=== PATIENT | male | born 1950 | race Caucasian/White ===

== ENCOUNTER 2016-07-13 07:32 | Emergency (ER) | payer OTHER ==
[~2016-07-13] VITALS: Ht 175.3 cm; Wt 156.4 kg
[~2016-07-13 07:32] MED LIST: ALBU0.08 INH; ALBUAER PO; ALLO300T2 PO; ASPI81TA28 PO; ATOR10TA88 PO; CHOL100010 PO; CLC6 PO; CYM20 PO; DIGO0.1267 PO; DOFE250C PO; FURO80TA63 PO; GLGKIT; INSUINJ2; LEVO200T PO; LEVO50TA PO; LISI5TAB3 PO; LPR25 PO; METO10TA6 PO; OXGN; PRLSR20 PO; SPIR25TA PO; SYMIN160 INH; WARF4TAB PO
[2016-07-13 07:34] VITALS: TEMP 36.9; Ht 175.3 cm; Wt 156.4 kg
[2016-07-13] MEDS ORDERED: RANITIDINE HCL 150 MG TAB PO STA (08:03)
[2016-07-13] MEDS ORDERED: DiphenhydrAMINE HCL 50 MG/ML VIAL IM STA (08:03)
[2016-07-13] MEDS ORDERED: METHYLPREDNISOLONE 125 MG VIAL IM STA (08:03)
[2016-07-13] MEDS ORDERED: ATOR-22 PO ×2 (08:21→08:26)
[2016-07-13] MEDS ORDERED: METO50TA16 PO (08:26)
[2016-07-13] MEDS ORDERED: FRS/80 PO (08:26)
[2016-07-13] MEDS ORDERED: SPIR25TA PO (08:26)
[2016-07-13] MEDS ORDERED: ALLO300T2 PO (08:26)
[2016-07-13] MEDS ORDERED: PRLSR20 PO (08:26)
[2016-07-13] MEDS ORDERED: ASPI81TA28 PO (08:26)
[2016-07-13] MEDS ORDERED: DULO-24 PO (08:26)
[2016-07-13] MEDS ORDERED: LEVO200T PO (08:26)
[2016-07-13] MEDS ORDERED: COLC0.6T54 PO (08:26)
[2016-07-13] MEDS ORDERED: DOFE250C PO (08:26)
[2016-07-13] MEDS ORDERED: CHOL20007 PO (08:26)
[2016-07-13] MEDS ORDERED: LEVO50TA PO (08:26)
[2016-07-13] MEDS ORDERED: LNX125 PO (08:26)
[2016-07-13] MEDS ORDERED: LISI-729 PO (08:26)
[2016-07-13] MEDS ORDERED: WARF4TAB8 PO (08:29)
[2016-07-13] MEDS ORDERED: CMD4 PO (08:29)
[2016-07-13] MEDS ORDERED: METO10TA6 PO (08:32)
[2016-07-13] MEDS ORDERED: PRED50TA PO (09:10)
--- NOTE | 2016-07-13 09:10 | EMERGENCY ROOM VISIT NOTE ---
ED Visit Note First contact with patient: 07:39 CHIEF COMPLAINT: Itchy skin rash 4-5 days HISTORY OF PRESENT ILLNESS: Patient is a 66-year-old white male with a complex and extensive past medical history who presents to the emergency department accompanied by a neighbor for evaluation of an itchy skin rash. He reports that it has been present for about 2 weeks, but the neighbor feels that has been present for only a few days. She was with him about 4 days ago, when he was complaining of itching on his hands. He has noted a progressively worsening red, raised, itchy rash, on his hands, arms, torso and buttocks. It largely spares his legs. He has not really tried anything for his symptoms, having applied sporadically a topical Benadryl cream or cortisone 10. He also uses ketoconazole cream for his underarm areas. He did notice a few areas around his mouth, and feels like his lips may be a little bit swollen, but denies any difficulty swallowing or breathing. He denies any shortness of breath. He states that he might be a little bit nauseous. Denies new exposure to any potential allergens in the last several weeks such as new medications, clothes, detergents, cosmetic products, or foods. He has not been ill with any cold or upper respiratory symptoms. There have been no changes in his medications. Incidentally, his friend notes that he has had been to several doctors appointments over the last couple of weeks, and no one else has noticed the rash, which to her suggests it has only been present for a couple of days. Patient reports that he was seen at our facility one month ago for evaluation of abdominal pain and was found to have an acute cholecystitis. He was transferred to to [facility] due to his complex medical history, and underwent cholecystectomy which was apparently and complicated. He has had follow-up with his surgeon since. REVIEW OF SYSTEMS: Review of systems as per HPI. All other systems reviewed were negative. 10 systems reviewed. PMH: Electronic medical records are reviewed and summarized as above/below. See Problem List. SOCIAL HISTORY: Patient lives at home. PHYSICAL EXAM: Vital Signs: Reviewed Nurse's notes. CONSTITUTIONAL: Patient is a morbidly obese 66-year-old white male who is awake and alert and seizure on the edge of the gurney in no acute distress. His vital signs are stable. HEENT: Normocephalic, atraumatic. Pupils equal, round, reactive to light and accommodation. EOMs intact without nystagmus. Sclera are anicteric. Tympanic membranes intact, with normal landmarks. External canals are clear. Oral and nasopharynx are clear. Mucous membranes are moist. He has slight fullness of the lips, and a few urticarial lesions around his mouth, but no evidence for airway compromise. No blisters or petechiae noted. LUNGS: Clear to auscultation and breath sounds equal, no wheezes, rales, or rhonchi. HEART: Regular rhythm and normal rate without murmurs, ectopy, gallops, or rubs. INTEGUMENTARY: The patient has a diffuse, red, raised calming maculopapular rash , involving his back, buttocks and abdomen. He has a few other lesions noted in the perioral area and on his arms. He does also has some lesions on the palms of his hands. There are no vesicles, blisters, or hemorrhagic lesions noted. EMERGENCY DEPARTMENT COURSE: Patient was treated with IM Solu-Medrol and Benadryl and given Zantac 150 mg orally. He was observed, and on reassessment, the lesions did appear to be fading slightly. He still complained of itching. He was encouraged to continue Benadryl and was placed on a short prednisone burst. His rash does appear to be urticarial in nature. The etiology is unclear at this point. His rash is not consistent with TEN or SJS. I do not suspect a vasculitis or pityriasis. Patient was encouraged to recheck with his primary care provider next week, or to arrange follow-up with dermatology for further care and management. He was reminded that the prednisone may cause his blood sugars become elevated transiently and he should correct that with his splint on as per his sliding scale. He is discharged home with his neighbor driving. Problem List Medical Problems: (1) Atrial fibrillation Status: Chronic (2) Benign hypertension Status: Chronic (3) Chronic obstructive lung disease Status: Chronic (4) DIAB EDYTA WO COMPL, TYPE II OR UNSPEC TYPE, NOT UNCNTRLD Status: Chronic (5) Diabetic neuropathy Status: Chronic (6) Dyslipidemia Status: Chronic (7) Gastroesophageal reflux disease Status: Chronic (8) History of calculus of kidney Status: Resolved (9) Hypothyroidism Status: Chronic (10) Morbid obesity Permanent Comment: BMI > 40 Status: Chronic (11) Obstructive sleep apnea syndrome Permanent Comment: CPAP prescribed, but usually does not utilize it Status: Chronic (12) s/p arthroscopic knee surgery Status: Resolved (13) s/p lithotripsy Status: Resolved (14) s/p repair umbilical hernia Status: Resolved Current/Historical Medications Scheduled Allopurinol (Zyloprim), 300 MG PO DAILY Aspirin (Aspirin Ec), 81 MG PO DAILY Atorvastatin (Lipitor), 0.5 TAB PO DAILY Cholecalciferol (Vitamin D3), 1 TAB PO DAILY Colchicine (Colchicine), 0.6 MG PO DAILY Digoxin (Digoxin), 0.125 MG PO DAILY Dofetilide (Tikosyn), 250 MCG PO BID Duloxetine HCl (Cymbalta), 1 CAP PO DAILY Furosemide (Lasix), 80 MG PO BID Levothyroxine Sodium (Synthroid), 50 MCG PO QAM Levothyroxine Sodium (Synthroid), 200 MCG PO QAM Lisinopril (Prinivil), 5 TAB PO QAM Metolazone (Zaroxolyn), 10 MG PO WK Metoprolol Tartrate (Lopressor) (Lopressor), 0.5 TAB PO BID Omeprazole (Prilosec), 20 MG PO QAM Prednisone (Prednisone), 50 MG PO DAILY Spironolactone (Aldactone), 0.5 TAB PO DAILY Warfarin Sod (Coumadin), 4 MG PO 4XWK Warfarin Sod (Jantoven), 6 MG PO 3XWK Allergies Coded Allergies: No Known Allergies (Verified , 06/03/16) Vital Signs Date Time Temp Pulse Resp B/P Pulse Ox O2 Delivery O2 Flow Rate FiO2 07/13/16 09:31 92 18 133/75 97 07/13/16 07:34 36.9 105 19 128/69 96 Room Air Medications Administered Medications (Trade) Dose Ordered Sig/Shane Route Start Time Stop Time Status Last Admin Dose Admin Diphenhydramine HCl (Benadryl Inj) 50 mg NOW STAT IM 07/13/16 08:03 07/13/16 08:05 DC 07/13/16 08:15 50 MG Methylprednisolone Sodium Succinate (Solu-Medrol IV) 125 mg NOW STAT IM 07/13/16 08:03 07/13/16 08:05 DC 07/13/16 08:15 125 MG Ranitidine HCl (zANTac TAB) 150 mg ONE STAT PO 07/13/16 08:03 07/13/16 08:05 DC 07/13/16 08:15 150 MG Departure Information Impression Primary Impression: Urticarial dermatitis Prescriptions Prednisone (Prednisone) 50 Mg Tab 50 MG PO DAILY for 4 Days, #4 TAB Prov: Luz Scott PA 07/13/16 Referrals Scotty Jara D.O. (PCP) Patient Instructions A Signature Page, My [facility] Additional Instructions DO NOT drive, drink alcohol, operate machinery, or perform dangerous activities today. You were given medications in the ER that can affect your ability to safely function or operate a vehicle. Prednisone 50mg: Once daily until the prescription is finished. It is best to take this earlier in the day as some patients note occasional difficulty falling asleep when taken in the late evening. Watch your blood sugars closely while on the Prednisone and correct accordingly. Diphenhydramine(Benadryl) 25mg: use 25 to 50 mg as needed every six hours for swelling, itching, or hives. This medication is sedating and will cause drowsiness. Avoid alcohol, operating machinery or dangerous equipment, working on ladders or roofs, DRIVING , or situations where being under the influence may be dangerous. Zantac 75: Take two pills twice a day along with Benadryl as needed for swelling , itching, or hives. Most people know this for its affect on the stomach, but it also acts similar to, but less potent than Benadryl for allergic reactions. Both the Benadryl and the Zantac are available [id number]. Read all the package inserts or medication information paperwork provided. If you have any questions or concerns call your primary provider, pharmacist or the ER for assistance. Continue current medications. Return to the emergency department for worsening of your rash, swelling of your face, lips, tongue, or throat, difficulty breathing, vomiting, or as needed. Follow-up with your primary care physician in 2-3 days for a recheck of your current condition.
--- NOTE | 2016-07-13 09:11 | EMERGENCY ROOM VISIT NOTE ---
ED Visit Note First contact with patient: 07:39 I have personally seen and evaluated the patient with the physician budget assistant. I agree with the diagnostic/management decisions and have personally been involved in these decisions and agree with the diagnosis.
[2016-07-13 09:31] VITALS: BP 133/75; PULSE 92; O2SAT 97
[2016-09-26] MEDS ORDERED: LPR100 PO (13:21)
[2016-11-14] MEDS ORDERED: METO1TAB69 PO (07:54)
[2016-11-18] MEDS ORDERED: AMOX500C3 PO (07:54)
[2016-12-09] MEDS ORDERED: DOXY100C76 PO (07:29)
[2017-03-22] MEDS ORDERED: PRD20 PO (11:56)
[2017-03-22] MEDS ORDERED: LVQ750 PO (11:56)
== END 2016-07-13 09:32 | disposition home or self-care (01) ==
LOC: C.EDB 07:33
DX: L30.9 Dermatitis, unspecified (principal); L50.9 Urticaria, unspecified; I48.2 Chronic atrial fibrillation; I10 Essential (primary) hypertension; J44.9 Chronic obstructive pulmonary disease, unspecified; E13.40 Other specified diabetes mellitus with diabetic neuropathy, unspecified; E78.5 Hyperlipidemia, unspecified; K21.9 Gastro-esophageal reflux disease without esophagitis; E03.9 Hypothyroidism, unspecified; E66.01 Morbid (severe) obesity due to excess calories; G47.33 Obstructive sleep apnea (adult) (pediatric); Z79.82 Long term (current) use of aspirin; Z79.01 Long term (current) use of anticoagulants; Z79.899 Other long term (current) drug therapy

== ENCOUNTER 2016-07-19 22:19 | Emergency (ER) | payer OTHER ==
[~2016-07-19] VITALS: Ht 175.3 cm; Wt 158.0 kg
[~2016-07-19 22:19] MED LIST changes: -ALBU0.08 INH; -ALBUAER PO; +ATOR-22 PO; -ATOR10TA88 PO; -CHOL100010 PO; +CHOL20007 PO; -CLC6 PO; +CMD4 PO; +COLC0.6T54 PO; -CYM20 PO; -DIGO0.1267 PO; +DULO-24 PO; +FRS/80 PO; -FURO80TA63 PO; -GLGKIT; -INSUINJ2; +LISI-729 PO; -LISI5TAB3 PO; +LNX125 PO; -LPR25 PO; +METO50TA16 PO; -OXGN; -SYMIN160 INH; -WARF4TAB PO; +WARF4TAB8 PO
[2016-07-19 22:22] VITALS: TEMP 36.9; Ht 175.3 cm; Wt 158.0 kg
[2016-07-19] MEDS ORDERED: CIPROFLOXACIN HCL 0.3% OP SOLN 2.5 ML BTL OP STA (22:37)
[2016-07-19] MEDS ORDERED: CEPHALEXIN 500MG HOME PACK 1 EA BTL PO ONE (22:45)
[2016-07-19] MEDS ORDERED: CEPHALEXIN MONOHYDRATE 250 MG CAP PO ONE (22:45)
[2016-07-19] MEDS ORDERED: CIPR0.3S OP (22:46)
[2016-07-19] MEDS ORDERED: CEPH500C PO (22:46)
--- NOTE | 2016-07-19 22:48 | EMERGENCY ROOM VISIT NOTE ---
History First contact with patient: 22:24 Chief Complaint: EYE ASSESSMENT Stated Complaint: RT EYE SWOLLEN & RED History of Present Illness The patient is a 66 year old male who presents to the Emergency Department by private vehicle for evaluation of his RIGHT eye pain, redness, swelling. He awoke with swelling to the eye. He did use a cold compress without relief of symptoms. The patient denies any trauma to the affected eye. He denies a blurred or double vision. He has not worked contacts or corrective lenses. He is tried nothing [id number] for his symptoms. He rates his current discomfort as 0/10. He denies any headaches, dizziness, lightheadedness, nausea , vomiting, or neck pain/stiffness. He denies a blurred or double vision. Review of Systems A complete 10-point Review of Systems was discussed with the patient, with pertinent positives and negatives listed in the History of Present Illness. All remaining Review of Systems questions can be considered negative unless otherwise specified. Past Medical/Surgical History Medical Problems: (1) ARF (acute renal failure) (2) Atrial fibrillation (3) Benign hypertension (4) Bilateral knee swelling (5) Chest pain (6) CHF (7) Chronic obstructive lung disease (8) DIAB EDYTA WO COMPL, TYPE II OR UNSPEC TYPE, NOT UNCNTRLD (9) Diabetic neuropathy (10) Dyslipidemia (11) Gastroesophageal reflux disease (12) History of calculus of kidney (13) Hypothyroidism (14) Morbid obesity (15) Obstructive sleep apnea syndrome (16) RUQ abdominal pain (17) s/p arthroscopic knee surgery (18) s/p lithotripsy (19) s/p repair umbilical hernia (20) Swelling of left knee joint Family History Hypertension Social History Smoking Status: Never Smoker Smokeless Tobacco Use: No Alcohol Use: none Drug Use: none Marital Status: Housing Status: lives alone Occupation Status: retired Current/Historical Medications Scheduled Allopurinol (Zyloprim), 300 MG PO DAILY Aspirin (Aspirin Ec), 81 MG PO DAILY Atorvastatin (Lipitor), 0.5 TAB PO DAILY Cephalexin Monohydrate (Keflex), 500 MG PO TID Cholecalciferol (Vitamin D3), 1 TAB PO DAILY Ciprofloxacin Hcl (Ophth) (Ciloxan Oph), 1 DROP OP Q4H Digoxin (Digoxin), 0.125 MG PO DAILY Dofetilide (Tikosyn), 250 MCG PO BID Duloxetine HCl (Cymbalta), 1 CAP PO DAILY Furosemide (Lasix), 80 MG PO BID Levothyroxine Sodium (Synthroid), 50 MCG PO QAM Levothyroxine Sodium (Synthroid), 200 MCG PO QAM Lisinopril (Prinivil), 5 TAB PO QAM Loratadine (Claritin), 10 MG PO DAILY Metolazone (Zaroxolyn), 10 MG PO WK Metoprolol Tartrate (Lopressor) (Lopressor), 0.5 TAB PO BID Omeprazole (Prilosec), 20 MG PO QAM Spironolactone (Aldactone), 0.5 TAB PO DAILY Warfarin Sod (Coumadin), 4 MG PO 4XWK Warfarin Sod (Jantoven), 6 MG PO 3XWK Miscellaneous Medications [Ur500 Mg] Allergies Coded Allergies: No Known Allergies (Verified , 07/19/16) Physical Exam Vital Signs Date Time Temp Pulse Resp B/P Pulse Ox O2 Delivery O2 Flow Rate FiO2 07/19/16 23:02 72 20 148/78 98 07/19/16 22:22 36.9 83 16 141/80 95 Room Air Right Eye Acuity: 20/40 Left Eye Acuity: 20/30 Pain Rating (0-10): 0 Physical Exam VITAL SIGNS - Vital signs and nursing notes were reviewed. GENERAL - 66-year-old male appearing his stated age. Communicates well with provider and answers questions appropriately. HEAD - Normocephalic, Atraumatic. No Alfaro's Sign or Raccoon's Eyes. No depressed skull fractures palpable. EYES - PERRL with EOMI bilaterally. Sclera without noticeable foreign body or excoriations. No injection noted in the RIGHT eye. Without subconjunctival hemorrhage. Palpebral conjunctiva pink and moist with no injection or discharge noted. Mild area of edema and palpable lump noted in the superior eyelid consistent with hordeolum. EARS - No deformities of external structures noted on gross examination bilaterally. Handle of malleus, umbo, cone of light, pars tensa/flaccid all easily visualized. NOSE - Midline and without cyanosis. Without discharge. MOUTH/OROPHARYNX - Without perioral cyanosis. Tongue midline with equal elevation of palate bilaterally. No tonsillar hypertrophy, erythema, or exudates noted. NECK - FROM assessed. No cervical lymphadenopathy noted. Medical Decision & Procedures Medications Administered Medications (Trade) Dose Ordered Sig/Shane Route Start Time Stop Time Status Last Admin Dose Admin Cephalexin Monohydrate (Keflex Cap) 500 mg NOW ONCE PO 07/19/16 22:45 07/19/16 22:46 DC 07/19/16 22:54 500 MG Cephalexin Monohydrate (Keflex 500MG Home Pack) 1 homepack NOW ONCE PO 07/19/16 22:45 07/19/16 22:46 DC 07/19/16 22:55 1 HOMEPACK Ciprofloxacin HCl (Ciprofloxacin 0.3% Op Soln) 2 drops NOW STAT OP 07/19/16 22:37 07/19/16 22:39 DC 07/19/16 22:55 2 DROPS ED Course Patient was seen and evaluated by myself. I was stained using fluorescence stain. No uptake was noted. I had a lengthy discussion with the patient and his regarding symptoms. He will utilize warm compresses to the area. He was treated with Keflex and Ciloxan drops. Patient has had a recent history of acute kidney injury, however on review his most recent chemistries, his GFR is well within normal limits. He does take Coumadin, so Keflex is much better initial option. The patient is diabetic so I felt it best for him to be managed more aggressively. He has an appointment with his retinal specialist this week. He will return to the emergency department sooner for any changing or worsening symptoms. Patient discharged home afebrile and in good condition. Medical Decision Given the patient's presentation and exam findings, I did elect to perform the above-mentioned workup. The patient presents with isolated redness and swelling to the upper RIGHT eyelid. This appears to be consistent with acute hordeolum. There is no exam findings consistent with orbital cellulitis or periorbital cellulitis otherwise. He has no fever. He is a diabetic. Because of this, I did cover the patient with oral antibiotics in addition to topical antibiotics as well. He was educated on using warm compresses to the area. The patient will follow-up with his retinal specialist on Thursday as scheduled. He will return sooner for any changing or worsening symptoms. Patient discharged home afebrile and in good condition. In the evaluation and treatment of this patient, the following differential diagnoses were considered: Corneal Abrasion, Conjunctivitis, Eye Contusion, Globe Injury, Orbital Floor Injury (Blowout Fracture), Corneal Ulcer, Keratitis , Herpes Zoster Ophthalmic, Blepharitis, Orbital Cellulitis, Iritis, Scleritis/ Episcleritis, Uveitis, Temporal Arteritis, Subconjunctival Hemorrhage. Impression Primary Impression: Hordeolum externum (stye) Departure Information Dispostion Home / Self-Care Condition GOOD Prescriptions Ciprofloxacin Hcl (Ophth) (CILOXAN OPH) 0.3 % Magaly 1 DROP OP Q4H for 7 Days, #1 BTL Prov: Rell Pierre PA-C 07/19/16 Cephalexin Monohydrate (Keflex) 500 Mg Cap 500 MG PO TID for 7 Days, #21 CAP Prov: Rell Pierre PA-C 07/19/16 Referrals Scotty Jara D.O. (PCP) Patient Instructions A Signature Page, [facility] Additional Instructions You've been seen in the emergency department today for your LEFT eye sty. Please use the topical antibiotics and oral antibiotics as prescribed. Use warm compresses to the area several times per day to help with symptoms. For pain control, you can use the following pawu-hqv-inendoz medicines (if >12 yo): - Regular strength (325mg/tab) Tylenol (acetaminophen) 2 tabs every 4-6 hours as needed. Do not exceed 12 tablets in a 24 hour period. Avoid taking more than 4 grams (4000 mg) of Tylenol per day. This includes any other sources of acetaminophen you may take on a regular basis. - Regular strength (200 mg/tab) Advil (ibuprofen) 1-2 tabs every 4-6 hours as needed. Do not exceed a dose of 3200 mg per day. Follow-up with your primary care provider and retinal specialist this week as scheduled. Return for any changing or worsening symptoms.
[2016-07-19] MEDS ORDERED: CLR10 PO (22:51)
[2016-07-19] MEDS ORDERED: [UNRECOGNIZED DRUG - OTHER] (22:51)
--- NOTE | 2016-07-19 22:51 | EMERGENCY ROOM VISIT NOTE ---
ED Visit Note First contact with patient: 22:24 Patient was seen by our PA/TIMBER SETTER. I was involved in the patient's care and did evaluate the patient myself. I was involved in the care throughout the ER stay. The patient presents with right eye discomfort, he has an upper lid hordeolum/ stye. The patient is being treated with eye drops and some oral antibiotics as he is a diabetic. He will follow with his eye doctor.
[2016-07-19 23:02] VITALS: BP 148/78; PULSE 72; O2SAT 98
[2016-09-26] MEDS ORDERED: LPR100 PO (13:21)
[2016-11-14] MEDS ORDERED: METO1TAB69 PO (07:54)
[2016-11-18] MEDS ORDERED: AMOX500C3 PO (07:54)
[2016-12-09] MEDS ORDERED: DOXY100C76 PO (07:29)
[2017-03-22] MEDS ORDERED: PRD20 PO (11:56)
[2017-03-22] MEDS ORDERED: LVQ750 PO (11:56)
== END 2016-07-19 23:11 | disposition home or self-care (01) ==
LOC: C.EDB 22:20
DX: H00.011 Hordeolum externum right upper eyelid (principal); E11.9 Type 2 diabetes mellitus without complications; I10 Essential (primary) hypertension; Z79.899 Other long term (current) drug therapy; Z79.01 Long term (current) use of anticoagulants; I48.91 Unspecified atrial fibrillation; E03.9 Hypothyroidism, unspecified; G47.33 Obstructive sleep apnea (adult) (pediatric)

== ENCOUNTER 2016-09-22 13:32 | Inpatient (IN) | payer OTHER ==
[~2016-09-22] VITALS: Ht 172.7 cm; Wt 156.8 kg
[~2016-09-22 13:32] MED LIST changes: +CLR10 PO; -COLC0.6T54 PO; +[UNRECOGNIZED DRUG - OTHER]
[2016-09-22 14:39] LABS: BASO % 0.3 %; BASO ABS # 0.02 K/uL (0-0.2); COMPLETE YES; EOS % 2.1 %; HEMATOCRIT 45.2 % (42-52); IG% 0.3 %; LYMPH % 18.5 %; MEAN CORPUSCULAR HEMOGLOBIN 30.5 pg (25-34); MEAN CORPUSCULAR HGB CONC 33.8 g/dl (32-36); MEAN PLATELET VOLUME 11.7 fL (7.4-10.4); MONO % 9.8 %; PLATELET COUNT 148 K/uL (130-400); RED BLOOD COUNT 5.02 M/uL (4.7-6.1); WHITE BLOOD COUNT 7.58 K/uL (4.8-10.8)
[2016-09-22 14:50] LABS: ALT/SGPT 53 U/L (12-78); BLOOD UREA NITROGEN 30 mg/dl (7-18); BUN/CREATININE RATIO 20.1 (10-20); CARBON DIOXIDE 28 mmol/L (21-32); CHLORIDE 97 mmol/L (98-107); GLUCOSE 159 mg/dl (70-99); MAGNESIUM 2.3 mg/dl (1.8-2.4); POTASSIUM 4.1 mmol/L (3.5-5.1); SODIUM 137 mmol/L (136-145)
[2016-09-22 14:56] LABS: INR 2.7 (0.9-1.1); PARTIAL THROMBOPLASTIN RATIO 1.7; PROTHROMBIN TIME (PATIENT) 29.9 SECONDS (9.0-12.0)
[2016-09-22 15:00] LABS: ALB/GLOB RATIO 0.9 (0.9-2); ALKALINE PHOSPHATASE 78 U/L (45-117); AST/SGOT 56 U/L (15-37); THYROID STIMULATING HORMONE 0.227 uIu/ml (0.300-4.500)
--- NOTE | 2016-09-22 15:17 | DIAGNOSTIC IMAGING REPORT ---
CT SCAN OF THE BRAIN WITHOUT IV CONTRAST CLINICAL HISTORY: Syncope. Head injury. COMPARISON STUDY: CT the brain dated 07/02/2012. TECHNIQUE: Unenhanced axial CT scan of the brain is performed from the vertex to the skull base. Automated dose control exposure was utilized. CT DOSE: 623.48 mGy.cm FINDINGS: Brain parenchyma: The brain parenchyma is normal in appearance. There is no hemorrhage, mass effect, or evidence of acute territorial ischemia by CT criteria. Yang-white matter is preserved. No extra-axial fluid collection is seen. Ventricles, sulci, cisterns: Normal in configuration. Intracranial vasculature: There is atherosclerotic calcification of the cavernous carotid and vertebral arteries. Calvarium: No depressed calvarial fracture is seen. Sinuses and mastoids: The visualized paranasal sinuses are clear. The mastoid air cells are well pneumatized. Orbits: The bony orbits are grossly intact. IMPRESSION: There is no hemorrhage, mass effect, or evidence of acute territorial ischemia by CT criteria. Electronically signed by: Anupam Gonzalez M.D. 09/22/2016 3:16 PM Dictated Date/Time: 09/22/2016 3:12 PM
--- NOTE | 2016-09-22 15:24 | EMERGENCY ROOM VISIT NOTE ---
ED Visit Note First contact with patient: 15:00 This Patient was discussed with the physician Foundry Laborer [employer], Samantha Mo PA-C. The pertinent historical and physical exam findings were confirmed. I agree with the studies ordered and with the interpretations of these studies. I agree with the disposition and care plan.
--- NOTE | 2016-09-22 15:35 | DIAGNOSTIC IMAGING REPORT ---
CHEST ONE VIEW PORTABLE CLINICAL HISTORY: syncope dyspnea COMPARISON STUDY: 06/03/2016 FINDINGS: Moderate cardiomegaly. Mild prominence pulmonary vasculature. Diaphragms smooth. The atelectasis right base. IMPRESSION: Moderate cardiomegaly. Pulmonary vascular congestion. Electronically signed by: Jcarlos Petersen M.D. 09/22/2016 3:34 PM Dictated Date/Time: 09/22/2016 3:33 PM
[2016-09-22] MEDS ORDERED: IV FLUIDS COMPLETED PRN (16:30)
[2016-09-22] MEDS ORDERED: ONDANSETRON INJ 2 MG/ML 2 ML VIAL ONE (16:42)
[2016-09-22] MEDS ORDERED: ONDANSETRON INJ 2 MG/ML 2 ML VIAL IV PRN (16:45)
[2016-09-22] MEDS ORDERED: ACETAMINOPHEN 325 MG TAB PO PRN (16:45)
[2016-09-22] MEDS ORDERED: DEXTROSE 50% 50 ML SYR IV PRN (17:00)
[2016-09-22] MEDS ORDERED: GLUCAGON FOR INJ 1 MG VIAL SQ PRN (17:00)
[2016-09-22] MEDS ORDERED: GLUCOSE 10 TABS/TUBE PO PRN (17:00)
[2016-09-22] MEDS ORDERED: GLUCOSE 40% GEL 15 GM TUBE PO PRN (17:00)
[2016-09-22] MEDS ORDERED: LPR25 PO (17:05)
[2016-09-22] MEDS ORDERED: SYMIN160 INH (17:05)
[2016-09-22] MEDS ORDERED: [UNRECOGNIZED DRUG - CODE] (17:05)
[2016-09-22] MEDS ORDERED: PRVHFAIN INH (17:05)
[2016-09-22] MEDS ORDERED: NZRCR EXT (17:05)
[2016-09-22] MEDS ORDERED: COLC0.6T54 PO (17:05)
[2016-09-22] MEDS ORDERED: KETOCONAZOLE 2% CR 15 GM TUBE EXT PRN (17:15)
[2016-09-22] MEDS ORDERED: ALBUTEROL HFA 8 GM INHALER INH PRN (17:15)
[2016-09-22 17:30] VITALS: BP 105/71; PULSE 108; TEMP 37; BMI 52.6
[2016-09-22] MEDS ORDERED: WARFARIN SOD 4 MG TAB PO SCH (18:00)
[2016-09-22] MEDS ORDERED: PHARMACY GLYCEMIC MGMT CONSULT PRN (18:07)
[2016-09-22] MEDS: BUDESONIDE/FORMOTEROL FUMARATE 160/4.5 60 PUFFS/INHALER INH SCH (19:32)
[2016-09-22] MEDS: FUROSEMIDE 80 MG TAB PO SCH (19:33)
[2016-09-22] MEDS: METOPROLOL TARTRATE 25 MG TAB PO SCH (19:34)
[2016-09-22] MEDS: DOFETILIDE 125 MCG CAP PO SCH (19:34)
[2016-09-22 19:35] VITALS: BP 114/46; PULSE 50; TEMP 36.9; O2SAT 90
[2016-09-22] MEDS ORDERED: INSULIN IV INFUSION PROTOCOL SCH (20:00)
--- NOTE | 2016-09-22 20:10 | Pharmacy Progress Note ---
Glycemic Control Intl Consult Date of Service Sep 22, 2016. Scope Glycemic Pharmacist consulted by TOM Hu on 09/22/16 for glycemic control and to write orders per [facility] inpatient glycemic control protocol Objective Weight (Kilograms): 157.000 Accuchecks BSG (last 24hrs): Test 09/22/16 14:25 Random Glucose 159 mg/dl (70-99) Laboratory Data (last 24hrs) Test 09/22/16 14:25 Anion Gap 12.0 mmol/L BUN/Creatinine Ratio 20.1 Blood Urea Nitrogen 30 mg/dl Creatinine 1.50 mg/dl Potassium Level 4.1 mmol/L Sodium Level 137 mmol/L White Blood Count 7.58 K/uL Red Blood Count 5.02 M/uL Hemoglobin 15.3 g/dL Hematocrit 45.2 % Mean Corpuscular Volume 90.0 fL Mean Corpuscular Hemoglobin 30.5 pg Mean Corpuscular Hemoglobin Concent 33.8 g/dl Platelet Count 148 K/uL Mean Platelet Volume 11.7 fL Neutrophils (%) (Auto) 69.0 % Lymphocytes (%) (Auto) 18.5 % Monocytes (%) (Auto) 9.8 % Eosinophils (%) (Auto) 2.1 % Basophils (%) (Auto) 0.3 % Neutrophils # (Auto) 5.24 K/uL Lymphocytes # (Auto) 1.40 K/uL Monocytes # (Auto) 0.74 K/uL Eosinophils # (Auto) 0.16 K/uL Basophils # (Auto) 0.02 K/uL Recent Pertinent Medications Outpatient Anti-diabetic Regimen: * U-500 Insulin Pump with settings of 2.0 units/hr 5619-6374, 2.8 units/hr 0500- 1400, and 2.0 units/hr 3708-3847 (utilizes appropriately 127 units/day) * A1c = 7.6 % 07/25/2016 Risk Factors for Insulin Resistance: * Steroids: * Infection: * Pressors: * IVF: * Recent Surgery * Diet: type 2 diabetic * Mechanical Ventilation: Assessment & Plan ASSESSMENT: * ADA & AACE recommend a goal blood sugar range 140-180 mg/dl for the majority of critically ill & non-critically ill patients. However, more stringent targets may be selected in individual cases. PLAN FOR INPATIENT GLYCEMIC CONTROL: * Starting IV insulin infusion per moderate stress protocol when blood sugars > 200 mg/dL * Goal Range 100 - 200 mg/dl * Mr Con has previously shown to have hypoglycemic episodes when utilizing U -500 pump as an inpatient therefore pump removed around 1800 and q1 accuchecks initiated while waiting for BSB to be greater than 200 mg/dL. * Holding outpatient oral diabetes medications * Correctional Insulin with NOVOLOG per scale ACHS * Goal Range: Low 100 mg/dL - High 200 mg/dL * Correction Factor: per insulin infusion calculator once started mg/dL/unit * Nutritional / Prandial insulin per carb ratio of 1 unit per 5 grams CHO consumed * Please note that the plan above was derived based on current level of insulin resistance and hospital stress. These recommendations are appropriate for inpatient admission only. Plan of care upon discharge will need to be reassessed to avoid potential outpatient hypo/hyperglycemia. Thank you.
[2016-09-22] MEDS: INSULIN ASPART 100 UNITS/ML 3 ML PEN SC SCH (20:31)
[2016-09-22] MEDS ORDERED: DIGOXIN 0.125 MG TAB PO SCH (21:00)
--- NOTE | 2016-09-22 21:26 | EMERGENCY ROOM VISIT NOTE ---
History First contact with patient: 14:13 Chief Complaint: SYNCOPE Stated Complaint: SYNCOPE Nursing Triage Summary: Patient reports he was at the grocery store standing in line and had a syncople episode. Patient has history of afib History of Present Illness The patient is a 66 year old male who presents to the Emergency Room for evaluation of a syncopal episode. The patient reports that he was standing in line at the grocery store when he became. He sweaty, lightheaded and had a syncopal episode. He states that he does not remember passing out, but was told by bystanders that he had lost consciousness for 30-40 seconds. The patient does not know if he hit his head or not. He states that he is feeling much better now and denies any significant symptoms. He denies any chest pain or shortness of breath. The patient denies any headaches, neck pain or recent illnesses. He does have a history of atrial fibrillation and congestive heart failure. He takes digoxin and Coumadin. He has never had a syncopal episode in the past. Review of Systems A complete 10-point Review of Systems was discussed with the patient, with pertinent positives and negatives listed in the History of Present Illness. All remaining Review of Systems questions can be considered negative unless otherwise specified. Past Medical/Surgical History Medical Problems: (1) A-fib (2) Atrial fibrillation (3) Benign hypertension (4) Chest pain (5) Chronic obstructive lung disease (6) DIAB EDYTA WO COMPL, TYPE II OR UNSPEC TYPE, NOT UNCNTRLD (7) Diabetic neuropathy (8) Diastolic dysfunction (9) Dyslipidemia (10) Gastroesophageal reflux disease (11) History of calculus of kidney (12) Hypothyroidism (13) Interstitial fibrosis (14) Morbid obesity (15) Nocturnal hypoxemia (16) Obstructive sleep apnea syndrome (17) RUQ abdominal pain (18) s/p arthroscopic knee surgery (19) s/p lithotripsy (20) s/p repair umbilical hernia (21) Syncope (22) Tachycardia induced cardiomyopathy Surgical Problems: (1) H/O cardiac radiofrequency ablation (2) S/P cholecystectomy (3) S/p thoracoscopy Family History Hypertension Social History Smoking Status: Unknown if Ever Smoked Alcohol Use: none Drug Use: none Marital Status: Housing Status: lives alone Occupation Status: retired Current/Historical Medications Scheduled Allopurinol (Zyloprim), 300 MG PO DAILY Aspirin (Aspirin Ec), 81 MG PO DAILY Atorvastatin (Lipitor), 0.5 TAB PO DAILY Budesonide/Formoterol Fumarate (Symbicort 160/4.5 Inhaler ), 2 PUFFS INH BID Cholecalciferol (Vitamin D3), 1 TAB PO DAILY Colchicine (Colchicine), 0.6 MG PO DAILY Digoxin (Digoxin), 0.125 MG PO QPM Dofetilide (Tikosyn), 250 MCG PO BID Duloxetine HCl (Cymbalta), 1 CAP PO DAILY Furosemide (Lasix), 80 MG PO BID Levothyroxine Sodium (Synthroid), 50 MCG PO QAM Levothyroxine Sodium (Synthroid), 200 MCG PO QAM Lisinopril (Prinivil), 2.5 MG PO QAM Metolazone (Zaroxolyn), 10 MG PO WK Metoprolol Tartrate (Lopressor), 25 MG PO BID Omeprazole (Prilosec), 20 MG PO QAM Spironolactone (Aldactone), 0.5 TAB PO DAILY Warfarin Sod (Coumadin), 4 MG PO 4XWK Warfarin Sod (Jantoven), 6 MG PO 3XWK Scheduled PRN Albuterol (Ventolin Hfa), 2 PUFFS INH QID PRN for SOB/Wheezing Ketoconazole (Ketoconazole), 1 APPLN EXT DAILY PRN for rash Miscellaneous Medications Insulin Regular. (Humulin R U-500 (Concentr) Allergies Coded Allergies: No Known Allergies (Verified , 07/19/16) Physical Exam Vital Signs Date Time Temp Pulse Resp B/P Pulse Ox O2 Delivery O2 Flow Rate FiO2 09/22/16 15:15 67 18 157/94 94 Room Air 91 139/68 95 163/99 09/22/16 14:23 94 09/22/16 14:10 95 Room Air 09/22/16 13:41 37.0 97 18 128/72 90 Room Air Pain Rating (0-10): 0 Physical Exam VITALS: Vitals are noted on the nurse's note and reviewed by myself. Vital signs stable. GENERAL: This is a 66-year-old female, in no acute distress, nondiaphoretic, well-developed well-nourished. SKIN: Capillary reflex less than 2 seconds. HEENT: Normocephalic. PERRLA. EOMI. tympanic membrane is pearly yang bilaterally. No hemotympanum. Nares patent. Mucous membranes moist. Neck is supple without nuchal rigidity. No tenderness of the cervical spine. HEART: Irregularly irregular rhythm, mildly tachycardic without murmurs gallops or rubs. LUNGS: Clear to auscultation bilaterally without wheezes, rales or rhonchi. ABDOMEN: Positive bowel sounds x 4. Soft, nontender to palpation. MUSCULOSKELETAL: Full range of motion throughout. Strength 5/5. EXTREMITIES: Erythema and warmth of the right lower extremity. Skin discoloration consistent with peripheral vascular disease noted bilaterally. NEURO: Patient was alert and oriented to person place and time. Normal sensation to light and sharp touch. No focal neurological deficits. Medical Decision & Procedures ER Provider Diagnostic Interpretation: CT SCAN OF THE BRAIN WITHOUT IV CONTRAST FINDINGS: Brain parenchyma: The brain parenchyma is normal in appearance. There is no hemorrhage, mass effect, or evidence of acute territorial ischemia by CT criteria. Yang-white matter is preserved. No extra-axial fluid collection is seen. Ventricles, sulci, cisterns: Normal in configuration. Intracranial vasculature: There is atherosclerotic calcification of the cavernous carotid and vertebral arteries. Calvarium: No depressed calvarial fracture is seen. Sinuses and mastoids: The visualized paranasal sinuses are clear. The mastoid air cells are well pneumatized. Orbits: The bony orbits are grossly intact. IMPRESSION: There is no hemorrhage, mass effect, or evidence of acute territorial ischemia by CT criteria. CHEST ONE VIEW PORTABLE FINDINGS: Moderate cardiomegaly. Mild prominence pulmonary vasculature. Diaphragms smooth. The atelectasis right base. IMPRESSION: Moderate cardiomegaly. Pulmonary vascular congestion. Laboratory Results 09/22/16 14:25 Red Blood Count 5.02, Mean Corpuscular Volume 90.0, Mean Corpuscular Hemoglobin 30.5, Mean Corpuscular Hemoglobin Concent 33.8, Mean Platelet Volume 11.7, Neutrophils (%) (Auto) 69.0, Lymphocytes (%) (Auto) 18.5, Monocytes (%) (Auto) 9.8, Eosinophils (%) (Auto) 2.1, Basophils (%) (Auto) 0.3, Neutrophils # (Auto) 5.24, Lymphocytes # (Auto) 1.40, Monocytes # (Auto) 0.74, Eosinophils # (Auto) 0.16, Basophils # (Auto) 0.02 Test 09/22/16 14:25 White Blood Count 7.58 K/uL (4.8-10.8) Red Blood Count 5.02 M/uL (4.7-6.1) Hemoglobin 15.3 g/dL (14.0-18.0) Hematocrit 45.2 % (42-52) Mean Corpuscular Volume 90.0 fL (80-100) Mean Corpuscular Hemoglobin 30.5 pg (25-34) Mean Corpuscular Hemoglobin Concent 33.8 g/dl (32-36) Platelet Count 148 K/uL (130-400) Mean Platelet Volume 11.7 fL (7.4-10.4) Neutrophils (%) (Auto) 69.0 % Lymphocytes (%) (Auto) 18.5 % Monocytes (%) (Auto) 9.8 % Eosinophils (%) (Auto) 2.1 % Basophils (%) (Auto) 0.3 % Neutrophils # (Auto) 5.24 K/uL (1.4-6.5) Lymphocytes # (Auto) 1.40 K/uL (1.2-3.4) Monocytes # (Auto) 0.74 K/uL (0.11-0.59) Eosinophils # (Auto) 0.16 K/uL (0-0.5) Basophils # (Auto) 0.02 K/uL (0-0.2) RDW Standard Deviation 47.4 fL (36.4-46.3) RDW Coefficient of Variation 14.4 % (11.5-14.5) Immature Granulocyte % (Auto) 0.3 % Immature Granulocyte # (Auto) 0.02 K/uL (0.00-0.02) Activated Partial Thromboplast Time 44.3 SECONDS (21.0-31.0) Partial Thromboplastin Ratio 1.7 Magnesium Level 2.3 mg/dl (1.8-2.4) Total Bilirubin 1.6 mg/dl (0.2-1) Aspartate Amino Transf (AST/SGOT) 56 U/L (15-37) Alanine Aminotransferase (ALT/SGPT) 53 U/L (12-78) Alkaline Phosphatase 78 U/L (45-117) Troponin I < 0.015 ng/ml (0-0.045) Total Protein 7.8 gm/dl (6.4-8.2) Albumin 3.7 gm/dl (3.4-5.0) Globulin 4.1 gm/dl (2.5-4.0) Albumin/Globulin Ratio 0.9 (0.9-2) Thyroid Stimulating Hormone (TSH) 0.227 uIu/ml (0.300-4.500) Digoxin Level 0.4 ng/ml (0.8-2.0) ECG Rate (beats per minute): 97 Rhythm: atrial flutter Findings: LAFB, RBBB Change: atrial flutter replaced NSR Medical Decision Differential diagnosis includes cardiogenic syncope, vasovagal syncope, CVA, infection, metabolic abnormality, among others. The patient was evaluated as above. The patient was placed on the personnel monitor. Labs were drawn and IV access was obtained. Imaging studies were performed and read by radiology as above. The patient was reassessed multiple times during their stay in the emergency department and remained in stable condition. The patient is a 66-year-old male who presents today after a syncopal episode. Labs revealed no leukocytosis, anemia or concerning was without abnormalities. The patient's creatinine was found to be elevated at 1.5, which appears to be baseline for the patient. Digoxin level is low at 0.4 EKG was interpreted by myself and showed atrial flutter. CT of the head was unremarkable. Chest x- ray showed pulmonary vascular congestion. The patient's rhythm strip a bradycardic rate of 45 with frequent PVCs. The patient is not significantly tachycardic in atrial flutter. I am concerned due to the patient's history of conduction disorders and possibilities a tachybrady syndrome. I do feel the patient should be admitted for further evaluation. Case was discussed with Dr. Chairez, ED attending physician, who agreed with my assessment and treatment plan. Case was discussed with the [facility] hospitalist, who agreed to evaluate patient for admission. Impression Primary Impression: Syncope Departure Information Dispostion Still a Patient Condition FAIR Referrals Scotty Jara D.O. (PCP) Forms HOME CARE DOCUMENTATION FORM, IMPORTANT VISIT INFORMATION Patient Instructions My [facility] Problem Qualifiers Primary Impression: Syncope Syncope type: unspecified Qualified Codes: R55 - Syncope and collapse
[2016-09-22 21:53] VITALS: PULSE 73; O2SAT 93
--- NOTE | 2016-09-22 21:54 | DIAGNOSTIC IMAGING REPORT ---
BILATERAL LOWER EXTREMITY VENOUS DOPPLER CLINICAL HISTORY: Leg swelling. Syncope. COMPARISON STUDY: Left lower extremity venous Doppler October 19, 2015 and bilateral lower extremity venous Doppler August 21, 2014. TECHNIQUE: Sonography of the deep venous system of the bilateral lower extremities was performed. Compression and augmentation were evaluated. FINDINGS: This exam was compromised by suboptimal penetration, particularly affecting visualization of the calf vessels. The common femoral, superficial femoral and popliteal veins were compressible. Augmentation was normal. IMPRESSION: Technically compromised exam but no deep venous thrombus identified within the lower extremities. Calf vessels largely obscured on this exam. Electronically signed by: Basil Hills M.D. 09/22/2016 9:53 PM Dictated Date/Time: 09/22/2016 9:51 PM
--- NOTE | 2016-09-22 22:05 | History and Physical ---
History & Physical Date & Time of Service: Sep 22, 2016 at 16:53 Chief Complaint: HEART Primary Care Physician: Scotty Jara D.O. History of Present Illness Source: patient This is a 66 year old male with PMH of AF on Coumadin, history of tachycardia induced cardiomyopathy EF 25% while in aflutter, echo 09/2015 showed EF 50-55% grade II diastolic dysfunction ,RBBB, bifascicular block, history of bilateral PE, Dm type 2 on insulin pump, COPD, interstitial lung disease, SALAS on CPAP and nocturnal O2, and other problems listed below who presents to the ED s/p syncopal episode. Pt follows with Dr. Jara for primary care and Jcarlos Haider PA-C for cardiology. Pt was in his usual state of health until while standing checking out at the grocery store he became hot, sweaty, and lightheaded, then lost consciousness. He was told by witnesses he hit his head and was unconscious for 30-40 seconds. No reported seizure like activity, incontinence, or tongue biting. When he awoke he quickly became reoriented. He is no longer feeling lightheaded. Near the end of my exam patient developed pain in RUQ non- radiating described as burning. He reports chronic intermittent BLLE edema- today possibly worse than usual. He admits to erythema of RLE- family states this is unchanged from baseline. He has scratched/ excoriated his right medial ankle. He reports chronic pain of bilateral feet attributed to neuropathy. family states blood sugar was in 90s this morning whereas usually runs around 200. Denies headache, speech or swallowing difficulty, focal weakness or numbness, fevers, chills, recent URI or cough, SOB, WHITE, orthopnea, chest pain, palpitations, decreased PO intake, N/V/D, urinary change, abnormal bleeding. Pt denies prior syncopal episode. It was reported that patient was bradycardic to 40s prior to arrival. Patient has been in AF with rate 60's-100's in ER. Denies known hx of bradycardia. He took his usual am meds today. No recent med changes. Past Medical/Surgical History Medical Problems: (1) A-fib Status: Chronic (2) Atrial fibrillation Status: Chronic (3) Benign hypertension Status: Chronic (4) Chronic obstructive lung disease Status: Chronic (5) DIAB EDYTA WO COMPL, TYPE II OR UNSPEC TYPE, NOT UNCNTRLD Status: Chronic (6) Diabetic neuropathy Status: Chronic (7) Diastolic dysfunction Status: Chronic (8) Dyslipidemia Status: Chronic (9) Gastroesophageal reflux disease Status: Chronic (10) History of calculus of kidney Status: Resolved (11) Hypothyroidism Status: Chronic (12) Interstitial fibrosis Status: Chronic (13) Morbid obesity Permanent Comment: BMI > 40 Status: Chronic (14) Nocturnal hypoxemia Status: Chronic (15) Obstructive sleep apnea syndrome Permanent Comment: on CPAP Status: Chronic (16) s/p arthroscopic knee surgery Status: Resolved (17) s/p lithotripsy Status: Resolved (18) s/p repair umbilical hernia Status: Resolved (19) Tachycardia induced cardiomyopathy Permanent Comment: prior EF of 25% while in aflutter, subsequently normal in NSR ; last EF 50-55% on echo 09/2015 Status: Chronic Surgical Problems: (1) H/O cardiac radiofrequency ablation Status: Chronic (2) S/P cholecystectomy Status: Chronic (3) S/p thoracoscopy Permanent Comment: right, VAT, wedge resection Status: Chronic Family History Hypertension Social History Smoking Status: Never Smoker Drug Use: none Marital Status: Housing status: lives alone Occupational Status: retired Immunizations History of Influenza Vaccine: No Influenza Vaccine Date: May 02, 2009 History of Tetanus Vaccine?: UTD History of Pneumococcal: No Pneumococcal Date: Jan 22, 2011 History of Hepatitis B Vaccine: Unknown Multi-Drug Resistant Organisms History of MDRO: Yes Type of MDRO: MRSA Allergies Coded Allergies: No Known Allergies (Verified , 07/19/16) Home Medications Scheduled Allopurinol (Zyloprim), 300 MG PO DAILY Aspirin (Aspirin Ec), 81 MG PO DAILY Atorvastatin (Lipitor), 0.5 TAB PO DAILY Budesonide/Formoterol Fumarate (Symbicort 160/4.5 Inhaler ), 2 PUFFS INH BID Cholecalciferol (Vitamin D3), 1 TAB PO DAILY Colchicine (Colchicine), 0.6 MG PO DAILY Digoxin (Digoxin), 0.125 MG PO QPM Dofetilide (Tikosyn), 250 MCG PO BID Duloxetine HCl (Cymbalta), 1 CAP PO DAILY Furosemide (Lasix), 80 MG PO BID Levothyroxine Sodium (Synthroid), 50 MCG PO QAM Levothyroxine Sodium (Synthroid), 200 MCG PO QAM Lisinopril (Prinivil), 2.5 MG PO QAM Metolazone (Zaroxolyn), 10 MG PO WK Metoprolol Tartrate (Lopressor), 25 MG PO BID Omeprazole (Prilosec), 20 MG PO QAM Spironolactone (Aldactone), 0.5 TAB PO DAILY Warfarin Sod (Coumadin), 4 MG PO 4XWK Warfarin Sod (Jantoven), 6 MG PO 3XWK Scheduled PRN Albuterol (Ventolin Hfa), 2 PUFFS INH QID PRN for SOB/Wheezing Ketoconazole (Ketoconazole), 1 APPLN EXT DAILY PRN for rash Miscellaneous Medications Insulin Regular. (Humulin R U-500 (Concentr) Review of Systems Ten point ROS performed with pertinent positives and negatives noted in HPI. Physical Exam Vital Signs Date Time Temp Pulse Resp B/P Pulse Ox O2 Delivery O2 Flow Rate FiO2 09/22/16 15:15 67 18 157/94 94 Room Air 91 139/68 95 163/99 09/22/16 14:23 94 09/22/16 14:10 95 Room Air 09/22/16 13:41 37.0 97 18 128/72 90 Room Air General Appearance: WD/WN, no apparent distress Head: normocephalic, atraumatic Eyes: normal inspection, PERRL, EOMI ENT: hearing grossly normal, TMs normal, pharynx normal Neck: supple, trachea midline, + pertinent finding (neck is thick ) Respiratory/Chest: lungs clear, normal breath sounds, no respiratory distress Cardiovascular: no murmur, + irregularly irregular (rate 90s) Abdomen/GI: normal bowel sounds, soft, + pertinent finding (nontender on initial exam. difficult to examine on repeat exam after developed abdominal pain as patient moved to chair due to back discomfort on the ER litter) Extremities/Musculoskelatal: no calf tenderness, normal capillary refill, + pertinent finding (1+ ankle edema bilateral ) Neurologic/Psych: early childhood specialist II-XII nml as tested, no motor/sensory deficits, alert, normal mood/affect, oriented x 3 Skin: warm/dry, + pertinent finding (RLE > LLE lower leg/ ankle erythema- unchanged from baseline per family. lower legs are dry and scaly. right medial ankle with small superficial area of abrasion) Diagnostics Laboratory Results Results Past 24 Hours Test 09/22/16 14:25 Range/Units White Blood Count 7.58 4.8-10.8 K/uL Red Blood Count 5.02 4.7-6.1 M/uL Hemoglobin 15.3 14.0-18.0 g/dL Hematocrit 45.2 42-52 % Mean Corpuscular Volume 90.0 80-100 fL Mean Corpuscular Hemoglobin 30.5 25-34 pg Mean Corpuscular Hemoglobin Concent 33.8 32-36 g/dl Platelet Count 148 130-400 K/uL Mean Platelet Volume 11.7 7.4-10.4 fL Neutrophils (%) (Auto) 69.0 % Lymphocytes (%) (Auto) 18.5 % Monocytes (%) (Auto) 9.8 % Eosinophils (%) (Auto) 2.1 % Basophils (%) (Auto) 0.3 % Neutrophils # (Auto) 5.24 1.4-6.5 K/uL Lymphocytes # (Auto) 1.40 1.2-3.4 K/uL Monocytes # (Auto) 0.74 0.11-0.59 K/uL Eosinophils # (Auto) 0.16 0-0.5 K/uL Basophils # (Auto) 0.02 0-0.2 K/uL RDW Standard Deviation 47.4 36.4-46.3 fL RDW Coefficient of Variation 14.4 11.5-14.5 % Immature Granulocyte % (Auto) 0.3 % Immature Granulocyte # (Auto) 0.02 0.00-0.02 K/uL Prothrombin Time 29.9 9.0-12.0 SECONDS Prothromb Time International Ratio 2.7 0.9-1.1 Activated Partial Thromboplast Time 44.3 21.0-31.0 SECONDS Partial Thromboplastin Ratio 1.7 Sodium Level 137 136-145 mmol/L Potassium Level 4.1 3.5-5.1 mmol/L Chloride Level 97 98-107 mmol/L Carbon Dioxide Level 28 21-32 mmol/L Anion Gap 12.0 3-11 mmol/L Blood Urea Nitrogen 30 7-18 mg/dl Creatinine 1.50 0.60-1.40 mg/dl Est Creatinine Clear Calc Drug Dose 74.2 ml/min Estimated GFR () 56.2 Estimated GFR (Non- 48.5 BUN/Creatinine Ratio 20.1 10-20 Random Glucose 159 70-99 mg/dl Calcium Level 10.0 8.5-10.1 mg/dl Magnesium Level 2.3 1.8-2.4 mg/dl Total Bilirubin 1.6 0.2-1 mg/dl Aspartate Amino Transf (AST/SGOT) 56 15-37 U/L Alanine Aminotransferase (ALT/SGPT) 53 12-78 U/L Alkaline Phosphatase 78 45-117 U/L Troponin I < 0.015 0-0.045 ng/ml Total Protein 7.8 6.4-8.2 gm/dl Albumin 3.7 3.4-5.0 gm/dl Globulin 4.1 2.5-4.0 gm/dl Albumin/Globulin Ratio 0.9 0.9-2 Thyroid Stimulating Hormone (TSH) 0.227 0.300-4.500 uIu/ml Digoxin Level 0.4 0.8-2.0 ng/ml Diagnostic Radiology CT SCAN OF THE BRAIN WITHOUT IV CONTRAST CLINICAL HISTORY: Syncope. Head injury. COMPARISON STUDY: CT the brain dated 07/02/2012. TECHNIQUE: Unenhanced axial CT scan of the brain is performed from the vertex to the skull base. Automated dose control exposure was utilized. CT DOSE: 623.48 mGy.cm FINDINGS: Brain parenchyma: The brain parenchyma is normal in appearance. There is no hemorrhage, mass effect, or evidence of acute territorial ischemia by CT criteria. Yang-white matter is preserved. No extra-axial fluid collection is seen. Ventricles, sulci, cisterns: Normal in configuration. Intracranial vasculature: There is atherosclerotic calcification of the cavernous carotid and vertebral arteries. Calvarium: No depressed calvarial fracture is seen. Sinuses and mastoids: The visualized paranasal sinuses are clear. The mastoid air cells are well pneumatized. Orbits: The bony orbits are grossly intact. IMPRESSION: There is no hemorrhage, mass effect, or evidence of acute territorial ischemia by CT criteria. CHEST ONE VIEW PORTABLE CLINICAL HISTORY: syncope dyspnea COMPARISON STUDY: 06/03/2016 FINDINGS: Moderate cardiomegaly. Mild prominence pulmonary vasculature. Diaphragms smooth. The atelectasis right base. IMPRESSION: Moderate cardiomegaly. Pulmonary vascular congestion. EKG atrial flutter with variable AV conduction, RBBB, LAFB, bifascicular block- also noted on prior EKG Impression Assessment and Plan SYNCOPE Possibly due to symptomatic bradycardia Was reported to be bradycardic in 40s prior to arrival; then in aflutter rate ~ 90s-100s in ER On metoprolol 25 mg BID- may need adjustment CT head checked due to ? head trauma- no acute findings Has chronic BLLE edema- BLLE US negative for DVT Monitor in telemetry Check echo Consult cardiology ATRIAL FIBRILLATION Rate is stable Digoxin level low at 0.4 Continue metoprolol with parameters, digoxin, Tikosyn INR therapeutic; continue Coumadin TACHYCARDIA INDUCED CARDIOMYOPATHY DIASTOLIC DYSFUNCTION Prior EF 25% while in aflutter; echo 09/2015 showing EF 50-55% grade II diastolic dysfunction Patient is currently euvolemic Continue home dose of Lasix 80 mg BID, spironolactone 12.5 mg daily, metolazone 2.5 mg weekly HYPERTENSION BP is stable Continue lisinopril, metoprolol DM TYPE 2 On insulin pump Pharmacy consulted for glycemic control; appreciate input COPD On chronic nocturnal O2 Not in acute exacerbation Continue home inhalers SALAS Continue CPAP HYPOTHYROIDISM TSH is slightly low at 0.227 Continue current dose of levothyroxine DYSLIPIDEMIA Continue statin RLE EXCORIATION No apparent infection Consult wound care nurse DVT PROPHYLAXIS On Coumadin Patient seen in collaboration with Dr. Freeman. Please see her addendum. ADDENDUM: I have seen and examined the patient and have discussed the case with the provider above. I agree with the assessment and plan as stated. Agree that patient is euvolemic and story is very consistent with symptomatic bradycardia, especially with EMS confirming that his HR was in the 40s prior to then coming up to 100s. He also has a h/o tachycardia-induced cardiomyopathy in the past, so will get an TTE and keep on telemetry overnight to watch for any pauses arrythmias. Another consideration is his Synthroid may be slightly high as TSH is <0.3, although I would not adjust anything at this time with current hemodynamic stability and current lack of symptoms. PE was considered with a h/o it in the past, however, his coumadin is therapeutic and he was not hypoxic. Bilateral dopplers were performed as patient is obese and has chronic LE swelling with venous stasis changes--these studies were negative, however the patient is at noticeably high risk of infection with chronic lymphatic destruction in lower extremities in the setting of diabetes. Agree with wound care consult. Will consult Cardiology to assist with further workup and treatment from a heart standpoint. Of note, patient is on diuretics but does not appear dehydrated and has had no medication changes recently. Also vasovagal syncope is always a possibility, but he doesn't admit to any stressors in the store. Also his sugar was checked and was normal, however, he does report symptoms of low blood sugar in the form of weakness in his legs that occurs a couple of times per week. He doesn't actually check his blood sugar when these episodes occur--could be misinterpreted and actually be his heart? Cont to monitor on tele overnight. Marina Freeman, DO Hospitalist Level of Care Telemetry Resuscitation Status FULL RESUSCITATION VTE Prophylaxis VTE Risk Assessment Done? Y/N: Yes Risk Level: Moderate Given or contraindicated: Warfarin (Coumadin)
[2016-09-23] VITALS (8 sets, daily range): BP systolic 97–134; BP diastolic 30–65; PULSE 46–109; TEMP 36.6–36.8; O2SAT 90–96
[2016-09-23 00:36] LABS: URINE APPEARANCE CLOUDY (CLEAR); URINE BILIRUBIN NEG (NEG); URINE COLOR DK YELLOW; URINE EPITHELIAL CELL AUTO >30 /lpf (0-5); URINE NITRITE NEG (NEG); URINE SPECIFIC GRAVITY 1.014 (1.000-1.030); UROBILINOGEN NEG (NEG); ZZUR CULT IF INDIC CLEAN CATCH NO
[2016-09-23 00:39] LABS: MANUAL MICROSCOPIC REQUIRED? NO; REVIEW REQ? YES
[2016-09-23] MEDS: LEVOTHYROXINE 200 MCG TAB PO SCH (06:00)
[2016-09-23] MEDS: LEVOTHYROXINE 50 MCG TAB PO SCH (06:00)
[2016-09-23 06:10] LABS: INR 2.4 (0.9-1.1); PROTHROMBIN TIME (PATIENT) 26.7 SECONDS (9.0-12.0)
[2016-09-23 06:27] LABS: BUN/CREATININE RATIO 22.3 (10-20); CALCIUM 8.9 mg/dl (8.5-10.1); CREATININE 1.9 mg/dl (0.60-1.40); POTASSIUM 3.8 mmol/L (3.5-5.1)
[2016-09-23] MEDS ORDERED: PERFLUTREN LIPID MICROSPHERE (DEFINITY) IV ONE (07:18)
[2016-09-23] MEDS: INSULIN ASPART 100 UNITS/ML 3 ML PEN SC SCH (08:05)
[2016-09-23] MEDS: METOPROLOL TARTRATE 25 MG TAB PO SCH ×2 (08:09→19:34)
[2016-09-23] MEDS: ATORVASTATIN 10 MG TAB PO SCH (08:09)
[2016-09-23] MEDS: ALLOPURINOL 300 MG TAB PO SCH (08:09)
[2016-09-23] MEDS: ASPIRIN 81 MG ECTAB PO SCH (08:09)
[2016-09-23] MEDS: FUROSEMIDE 80 MG TAB PO SCH ×2 (08:10→17:58)
[2016-09-23] MEDS: CHOLECALCIFEROL 1000 INTER.UNIT TAB PO SCH (08:10)
[2016-09-23] MEDS: DULOXETINE HCL 20 MG CAP PO SCH (08:10)
[2016-09-23] MEDS: DOFETILIDE 125 MCG CAP PO SCH ×2 (08:11→19:34)
[2016-09-23] MEDS: PANTOprazole SOD 40 MG TAB PO SCH (08:11)
[2016-09-23] MEDS: COLCHICINE 0.6 MG TAB PO SCH (08:12)
[2016-09-23] MEDS: SPIRONOLACTONE 25 MG TAB PO SCH (08:12)
[2016-09-23] MEDS: LISINOPRIL 2.5 MG TAB PO SCH (08:13)
[2016-09-23] MEDS: BUDESONIDE/FORMOTEROL FUMARATE 160/4.5 60 PUFFS/INHALER INH SCH ×2 (08:18→19:34)
--- NOTE | 2016-09-23 08:50 | ECHOCARDIOGRAM REPORT ---
*NOTICE TO RECEIVING [facility] This information is strictly Confidential and protected under [place] law. [place] law prohibits you from making any further disclosure of this information unless further disclosure is expressly permitted by the written consent of the person to whom it pertains or is authorized by law. A general authorization for the release of medical or other information is not sufficient for this purpose. Hospital accepts no responsibility if the information is made available to any other person, INCLUDING THE PATIENT. Interpretation Summary * Name: CECILE KENDALL Study Date: 09/23/2016 06:43 AM BP: 100/65 mmHg * Patient Location: C.2E\S\E210\S\1 HR: 72 * : 1950 (M/d/yyyy) Gender: Male Height: 69 in * Age: 66 yrs Ethnicity: CA Weight: 347 lb * Ordering Physician: Nicole Burrell * Referring Physician: Jcarlos Haider PA-C * Performed By: Bev Shah RDCS * * Reason For Study: Syncope * BSA: 2.6 m2 * -- Conclusions -- * Normal LV chamber size with mild concentric LVH, sigmoid appearing septum. * Normal LV systolic function, EF 55-60%. * No segmental left ventricular wall motion abnormalities are noted. * Grade II diastolic dysfunction. * No significant valvular pathology. Procedure Details * A complete two-dimensional transthoracic echocardiogram was performed (2D, M-mode, Doppler and color flow Doppler). * The study was technically limited. * The study was technically difficult. * A contrast injection of Definity was performed to improve assessment of LV function. * Contrast was injected into an intravenous site in the right arm. * One vial of Definity ultrasound contrast was diluted in normal saline to a total volume of 10 ml. A total of '2' ml of solution was administered during imaging. * Lot # [id number] of Definity utilized for procedure. * Expiration date JUL 30. * The attending nurse who injected the contrast agent was Ingrid Addison RN. Left Ventricle * The left ventricle is normal in size. * There is mild concentric left ventricular hypertrophy. * The basal septum is thickened and angulated consistent with sigmoid septum. * Ejection Fraction = 55-60%. * Left ventricular systolic function is normal. * No segmental left ventricular wall motion abnormalities are noted. * The left ventricular wall motion is normal. Right Ventricle * The right ventricular cavity size is normal (basal dimension <4.2 cm in right ventricular apical 4-chamber view). * The right ventricular systolic function is normal as assessed by tricuspid annular plane systolic excursion (TAPSE) (normal >1.5 cm). Atria * The left atrial size is normal. * Right atrial size is normal. * Lipomatous hypertrophy of the interatrial septum is noted. * No ASD detected; PFO is not assessed. Mitral Valve * The mitral valve is normal in structure and function. Tricuspid Valve * The tricuspid valve is normal in structure and function. Aortic Valve * The aortic valve is not well visualized. * No hemodynamically significant valvular aortic stenosis. * There is no significant aortic regurgitation. Pulmonic Valve * The pulmonary valve is not well seen, but the Doppler examination is normal without significant regurgitation or stenosis. Great Vessels * The aortic root and proximal ascending aorta are normal sized. Pericardium/Pleural * There is no pericardial effusion. Left Ventricular Diastolic Function * Diastolic dysfunction, Grade II (pseudonormalization pattern). MMode 2D Measurements and Calculations IVSd 1.6 cm LVIDd 5.2 cm LVIDs 3.9 cm LVPWd 1.1 cm IVS/LVPW 1.5 FS 26.6 % EDV(Teich) 132.2 ml ESV(Teich) 64.0 ml EF(Teich) 51.6 % EDV(cubed) 144.4 ml ESV(cubed) 57.2 ml EF(cubed) 60.4 % LV mass(C)d 292.5 grams LV mass(C)dI 112.1 grams/m\S\2 SV(Teich) 68.2 ml SI(Teich) 26.1 ml/m\S\2 SV(cubed) 87.2 ml SI(cubed) 33.4 ml/m\S\2 Ao root diam 3.1 cm Ao root area 7.8 cm\S\2 LA dimension 3.5 cm asc Aorta Diam 3.3 cm LA/Ao 1.1 LVAd ap4 33.7 cm\S\2 LVLd ap4 8.8 cm EDV(MOD-sp4) 107.5 ml EDV(sp4-el) 109.7 ml LVAs ap4 21.8 cm\S\2 LVLs ap4 8.3 cm ESV(MOD-sp4) 48.1 ml ESV(sp4-el) 48.4 ml EF(MOD-sp4) 55.2 % EF(sp4-el) 55.9 % LVAd ap2 22.2 cm\S\2 LVLd ap2 7.4 cm EDV(MOD-sp2) 58.2 ml EDV(sp2-el) 56.9 ml LVAs ap2 12.5 cm\S\2 LVLs ap2 6.0 cm ESV(MOD-sp2) 22.2 ml ESV(sp2-el) 22.0 ml EF(MOD-sp2) 61.8 % EF(sp2-el) 61.2 % LVLd %diff -19.70 % EDV(MOD-bp) 85.8 ml LVLs %diff -39.27 % ESV(MOD-bp) 38.2 ml EF(MOD-bp) 55.5 % SV(MOD-sp4) 59.3 ml SI(MOD-sp4) 22.7 ml/m\S\2 SV(MOD-sp2) 36.0 ml SI(MOD-sp2) 13.8 ml/m\S\2 SV(MOD-bp) 47.6 ml SI(MOD-bp) 18.2 ml/m\S\2 SV(sp4-el) 61.4 ml SI(sp4-el) 23.5 ml/m\S\2 SV(sp2-el) 34.8 ml SI(sp2-el) 13.3 ml/m\S\2 Doppler Measurements and Calculations MV E max christie 102.4 cm/sec MV A max christie 87.2 cm/sec MV E/A 1.2 MV dec time 0.33 sec Ao V2 max 189.4 cm/sec Ao max PG 14.3 mmHg Ao max PG (full) 10.8 mmHg LV V1 max PG 3.6 mmHg LV V1 max 94.7 cm/sec PA V2 max 85.4 cm/sec PA max PG 2.9 mmHg PA acc slope 349.4 cm/sec\S\2 PA acc time 0.18 sec PA pr(Accel) -0.17 mmHg
[2016-09-23] MEDS ORDERED: INSULIN GLARGINE SC SCH (09:00)
--- NOTE | 2016-09-23 10:19 | Cardiology Consultation ---
Cardiology Consultation Date of Service Sep 23, 2016. (Suzanne Simmons, LOIS) Cardiology Consultation HPI: Patient is a 66 year old male who was admitted to [facility] yesterday after experiencing a syncopal episode while grocery shopping at [employer]. He states he was in his usual state of health yesterday AM. He was standing in line and began to feel lightheaded. He then developed diaphoresis and evidentially lost consciousness. No loss of bowel/bladder function. He was brought to [place] via EMS. Reports of bradycardia on initial evaluation, however strips not available for review. EKG on arrival demonstrates atrial flutter with variable AV block. TSH was low. Patient had no recurrent symptoms in ER. He was admitted for observation. At time of consult, patient feeling ok. Unaware of tachypalpitations. No recurrent dizziness. No recurrent syncope. No chest pain or SOB. Fluid status has been stable. No cough, fever, chills. No orthopnea, PND or worsening LE edema. No cough, fever, chills. Review of Systems: See HPI for pertinent positives. All other 10 point review of systems is negative. Problems 1. History of paroxysmal atrial fibrillation (AF) and atrial flutter (AFL) first diagnosed in 2011 1. Failed to tolerate dronedarone 2. Amiodarone prescribed in 2012 which prevented AF/AFL though was discontinued in by Pulmonary Medicine secondary to concerns for pulmonary toxicity. 3. Recurrent AFL -2013, converting to NSR with the addition of dofetilide. 4. Recurrent AF, -2013. 5. Status post May 10, [address] Flynn at [facility]. 1. Successful radiofrequency ablation of the cavtricuspid isthmus with creation of a bidirectional isthmus conduction block under conscious sedation. 2. He did not undergo a PVI ablation because of mild hypoxemia, volume overload on presentation. 3. Normal AV node function noted post ablation. 2. 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 Chronic Coumadin anticoagulation. 4. Right bundle branch block 5. Diastolic dysfunction. 6. Hypertension 7. Dyslipidemia. 8. Diabetes 9. Obstructive sleep apnea 10. History of bilateral pulmonary embolus 11. ? sarcoidosis. Cardiac CT on 05/09/2014 raised concern for sarcoid. He as been evaluated by [facility] Pulmonary Medicine, Dr. Jim Cardozo MD, who did not think he has active pulmonary sarcoidosis that would merit steroid therapy especially given his weight and diabetic state. Liver CT in August 2014 revealed hepatosplenomegaly, fatty infiltration of the liver. No hepatic mass. Innumerable small stones or gravel in the gallbladder. 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 Hypothyroidism Hypothyroidism MRSA colonization 12/14/2012 Past Surgical History Knee arthroscopy/meniscectomy Umbil hernia repair (reducible) age [id number] Fragment kidney stone by shock wave 06-28-2010 Cystoscopy 07-03-2010 Colonoscopy, diagnostic (rectum) 03/19/2011 Bronchoscopy, diagnostic 11/28/2011 Electrophysiology eval & ablate svt 08/02/2012 Thoracoscopy surgical pleurodesis 12/20/2013 Right, VAT, wedge resection- [facility] Electrophysiology eval, atrial fib, pulmonary vein isol 05/10/2014 ELECTROPHYSIOLOGY EVAL, ATRIAL FIB, PULMONARY VEIN ISOL performed by Dirk Flynn MD at [facility] Laparoscopy; cholecystectomy N/A 06/06/2016 LAPAROSCOPIC CHOLECYSTECTOMY performed by Juan Xiong MD at OR [facility] Family History: Negative for premature CAD, sudden cardiac or CVA. Social History: Negative for tobacco use. He admits to occasional excessive alcohol intake. Ret[employer] Review of patient's allergies indicates: No Known Allergies Current Outpatient Prescriptions Reported Home Medications Medications Dose Route/Sig Max Daily Dose Days Date Category Dose Instructions Ventolin Hfa (Albuterol) 60 Puffs/5400 Mcg Aers 2 Puffs INH QID PRN 09/22/16 Reported Colchicine 0.6 Mg Tab 0.6 Mg PO DAILY 09/22/16 Reported Symbicort 160/4.5 Inhaler (Budesonide/Formoterol Fumarate) Aero 2 Puffs INH BID 09/22/16 Reported Ketoconazole 45 Appln/15 Gm Cr 1 Appln EXT DAILY PRN 09/22/16 Reported Humulin R U-500 (Concentr (Insulin Regular.) 10,000 Units/Vial Unit 09/22/16 Reported as directed via insulin pump Lopressor (Metoprolol Tartrate) 25 Mg Tab 25 Mg PO BID 09/22/16 Reported Zaroxolyn (Metolazone) 10 Mg Tab 10 Mg PO WK 07/13/16 Reported Jantoven (Warfarin Sodium) 4 Mg Tab 6 Mg PO 3XWK 07/13/16 Reported 1 1/2 TAB ON* SUN, TUES, THURS. Coumadin (Warfarin Sod) 4 Mg Tab 4 Mg PO 4XWK 07/13/16 Reported MON, WED, FRI, SAT Prilosec (Omeprazole) 20 Mg Capcr 20 Mg PO QAM 07/13/16 Reported Synthroid (Levothyroxine Sodium) 200 Mcg Tab 200 Mcg PO QAM 07/13/16 Reported Synthroid (Levothyroxine Sodium) 50 Mcg Tab 50 Mcg PO QAM 07/13/16 Reported Vitamin D3 (Cholecalciferol) 2,000 Unit Tab 1 Tab PO DAILY 90 07/13/16 Reported Tikosyn (Dofetilide) 250 Mcg Cap 250 Mcg PO BID 07/13/16 Reported Aldactone (Spironolactone) 25 Mg Tab 0.5 Tab PO DAILY 07/13/16 Reported Prinivil (Lisinopril) 5 Mg Tab 2.5 Mg PO QAM 07/13/16 Reported Lasix (Furosemide) 80 Mg Tab 80 Mg PO BID 07/13/16 Reported Cymbalta (Duloxetine HCl) 20 Mg Cap 1 Cap PO DAILY 30 07/13/16 Reported Digoxin 0.125 Mg Tab 0.125 Mg PO QPM 07/13/16 Reported AFTER 6PM, PER PATIENT'S LIST. Zyloprim (Allopurinol) 300 Mg Tab 300 Mg PO DAILY 07/13/16 Reported Lipitor (Atorvastatin Calcium) 20 Mg Tab 0.5 Tab PO DAILY 07/13/16 Reported Aspirin Ec (Aspirin) 81 Mg Tab 81 Mg PO DAILY 07/13/16 Reported OBJECTIVE/PHYSICAL EXAMINATION: Last 8 Hrs Date Time Temp Pulse Resp B/P Pulse Ox O2 Delivery O2 Flow Rate FiO2 09/23/16 07:35 36.6 73 33 97/40 96 Room Air 09/23/16 04:24 36.8 109 20 100/65 96 CPAP 09/23/16 04:00 Room Air General: A&Ox3. NAD. Obese. HEENT: Normocephalic. Atraumatic. PER. Conjunctiva pink, sclera clear. No carotid bruits. No JVD. Heart: Irregularly irregular No murmurs appreciated. Lungs: Clear. Abdomen: Obese. +BS. . Extremities: 1+ edema with chronic stasis changes. No clubbing. No cyanosis. Limited neurological examination is without focal deficits. Pulses: radial=2/4, posterior tibial=1/ 4. Data: EKG on admission: atrial flutter with variable AV conduction Right bundle branch block Left anterior fascicular block Bifascicular block Minimal voltage criteria for LVH, may be normal variant Abnormal ECG When compared with ECG of 05-JUN-2016 07:12, Atrial flutter has replaced Sinus rhythm Vent. rate has increased BY 32 BPM Repeat EKG this AM, 09/23/16 Atrial fibrillation Right bundle branch block Left anterior fascicular block Bifascicular block Minimal voltage criteria for LVH, may be normal variant Abnormal ECG When compared with ECG of 22-SEP-2016 14:03, Previous ECG has undetermined rhythm, needs review Echocardiogram reviewed, performed this AM: Normal LV chamber size with mild concentric LVH, sigmoid appearing septum. * Normal LV systolic function, EF 55-60%. * No segmental left ventricular wall motion abnormalities are noted. * Grade II diastolic dysfunction. * No significant valvular pathology. Venous duplex: Negative for DVT. Limited study CT of head: no acute abnormality Chest xray: cardiomegaly Last 24 Hours Test 09/22/16 14:25 09/22/16 20:08 09/22/16 21:13 09/22/16 22:17 White Blood Count 7.58 K/uL Red Blood Count 5.02 M/uL Hemoglobin 15.3 g/dL Hematocrit 45.2 % Mean Corpuscular Volume 90.0 fL Mean Corpuscular Hemoglobin 30.5 pg Mean Corpuscular Hemoglobin Concent 33.8 g/dl Platelet Count 148 K/uL Mean Platelet Volume 11.7 fL Neutrophils (%) (Auto) 69.0 % Lymphocytes (%) (Auto) 18.5 % Monocytes (%) (Auto) 9.8 % Eosinophils (%) (Auto) 2.1 % Basophils (%) (Auto) 0.3 % Neutrophils # (Auto) 5.24 K/uL Lymphocytes # (Auto) 1.40 K/uL Monocytes # (Auto) 0.74 K/uL Eosinophils # (Auto) 0.16 K/uL Basophils # (Auto) 0.02 K/uL RDW Standard Deviation 47.4 fL RDW Coefficient of Variation 14.4 % Immature Granulocyte % (Auto) 0.3 % Immature Granulocyte # (Auto) 0.02 K/uL Prothrombin Time 29.9 SECONDS Prothromb Time International Ratio 2.7 Activated Partial Thromboplast Time 44.3 SECONDS Partial Thromboplastin Ratio 1.7 Sodium Level 137 mmol/L Potassium Level 4.1 mmol/L Chloride Level 97 mmol/L Carbon Dioxide Level 28 mmol/L Anion Gap 12.0 mmol/L Blood Urea Nitrogen 30 mg/dl Creatinine 1.50 mg/dl Est Creatinine Clear Calc Drug Dose 74.2 ml/min Estimated GFR () 56.2 Estimated GFR (Non- 48.5 BUN/Creatinine Ratio 20.1 Random Glucose 159 mg/dl Calcium Level 10.0 mg/dl Magnesium Level 2.3 mg/dl Total Bilirubin 1.6 mg/dl Aspartate Amino Transf (AST/SGOT) 56 U/L Alanine Aminotransferase (ALT/SGPT) 53 U/L Alkaline Phosphatase 78 U/L Troponin I < 0.015 ng/ml Total Protein 7.8 gm/dl Albumin 3.7 gm/dl Globulin 4.1 gm/dl Albumin/Globulin Ratio 0.9 Thyroid Stimulating Hormone (TSH) 0.227 uIu/ml Digoxin Level 0.4 ng/ml Bedside Glucose 160 mg/dl 130 mg/dl 111 mg/dl Test 09/22/16 23:09 09/23/16 00:14 09/23/16 00:15 09/23/16 01:12 Bedside Glucose 110 mg/dl 99 mg/dl 100 mg/dl Urine Color DK YELLOW Urine Appearance CLOUDY Urine pH 5.0 Urine Specific [place] 1.014 Urine Protein NEG Urine Glucose (UA) NEG Urine Ketones TRACE Urine Occult Blood NEG Urine Nitrite NEG Urine Bilirubin NEG Urine Urobilinogen NEG Urine Leukocyte Esterase TRACE Urine WBC (Auto) 1-5 /hpf Urine RBC (Auto) 0-4 /hpf Urine Hyaline Casts (Auto) >30 /lpf Urine Epithelial Cells (Auto) >30 /lpf Urine Bacteria (Auto) NEG Urine Crystals CALCIUM OXALATE Urine Pathogenic Casts /lpf Test 09/23/16 03:09 09/23/16 05:17 09/23/16 05:26 09/23/16 07:02 Bedside Glucose 113 mg/dl 165 mg/dl 191 mg/dl Prothrombin Time 26.7 SECONDS Prothromb Time International Ratio 2.4 Sodium Level 138 mmol/L Potassium Level 3.8 mmol/L Chloride Level 99 mmol/L Carbon Dioxide Level 28 mmol/L Anion Gap 11.0 mmol/L Blood Urea Nitrogen 42 mg/dl Creatinine 1.90 mg/dl Est Creatinine Clear Calc Drug Dose 57.1 ml/min Estimated GFR () 42.2 Estimated GFR (Non- 36.4 BUN/Creatinine Ratio 22.3 Random Glucose 162 mg/dl Calcium Level 8.9 mg/dl Prior Data: May 09, [address] Impression: Examination was not EKG gated secondary to patient's accelerated heart rate. As such, coronary arteries are not assessed. No evidence of left atrial appendage thrombus. Two pulmonary veins on the right. On the left, the pulmonary veins share a common ostium. Left atrial enlargement. Constellation of findings within the lungs, as well as, mediastinal , hilar and abdominal lymphadenopathy, highly suggestive of sarcoidosis. New findings within the liver which are described above. Findings most likely represent infiltrative disease which could represent sarcoidosis among other etiologies such as lymphoma. The appearance of the liver may also in part reflect artifact from photon attenuation. Further evaluation with contrast- enhanced MRI of the liver is recommended. However, if MRI is unrevealing, further consideration for transjugular liver biopsy may be pursued as clinically warranted. Other findings as discussed in the body of the report. September 21, 2015 TTE Interpretation Summary (as per Dr. Carbone): Mildly dilated LV chamber size with mild concentric LVH. Low normal LV systolic function with borderline global hypokinesis, EF 50-55%. Grade II diastolic dysfunction.No significant valvular pathology. ASSESSMENT and PLAN: 1. 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 Concern for post conversion bradyarrhythmias, pauses. HR ranges 40 in Sinus to 120 in atrial fib/flutter. -he has failed multiple antiarrhythmics and s/p fib/flutter ablations in the past. -continue dofetilide -hold Coumadin -hold digoxin and metoprolol -Discussed with EP, Dr. Rojas. Will evaluate tomorrow. NPO for possible pacemaker tomorrow. 2. Compensated diastolic heart failure signs and symptoms. -continue diuretics -LVEF 50-55% 3. History of tachycardia induced cardiomyopathy. 4. Long history of conduction system disease, dating back to 2011. Status post May 10, 2014 successful radiofrequency ablation of the cavtricuspid isthmus with creation of a bidirectional isthmus conduction block under conscious sedation. Normal AV node function noted post ablation. 5. Right bundle branch block, left anterior fascicular block, bifascicular block. 6. Chronic renal dysfunction 7. Hypothyroidism 8. Hypertension 9. Dyslipidemia 10. Diabetes 11. Treated obstructive sleep apnea 12. History of bilateral pulmonary embolus Case discussed with Dr. Carbone. Will follow as hospital course progresses. (Suzanne Simmons PA-C) Cardiology attending: Pt seen and examined, agree with findings and assessment as per Suzanne Hicks. Patient with underlying conduction system disease, hx of tachycardia induced cardiomyopathy, paf, now with tachybrady syndrome all in the setting of syncope. Discussed options with patient and recommendation for PPM. Pt states he understands and agrees, would like to proceed with pacer. Will tentatively plan for 09/24. Hold coumadin and dig. (Juan Carbone D.O.)
[2016-09-23] MEDS ORDERED: NURSING DECISION MEDICATION ORDER SCH (11:00)
[2016-09-23] MEDS ORDERED: INSULIN ASPART 100 UNITS/ML VIAL SC SCH (12:30)
--- NOTE | 2016-09-23 13:27 | Progress Note ---
Subjective Date of Service: Sep 23, 2016. Subjective Pt evaluation today including: conversation w/ patient, physical exam, lab review, review of studies, review of inpatient medication list Saw/examined the patient in room 210 He is comfortable in a seated position - obese gentleman states he came in due to syncopal fall - lost consciousness - this has never happened before Denies any chest pain, shortness of breath, palpitations Problem List Medical Problems: (1) Acute cholecystitis Status: Acute (2) Anticoagulated on Coumadin Status: Acute (3) Hordeolum externum (stye) Status: Acute (4) Hypoglycemia Status: Acute (5) Septic joint of left knee joint Status: Acute (6) Urticarial dermatitis Status: Acute Review of Systems Constitutional: No chills, No fever Cardiac: No chest pain, No edema, No palpitations Neurologic: + balance problems, + memory loss, + numbness/tingling, + vertigo, + weakness, No paralysis Heme: No abnormal bleeding/bruising Medications Current Inpatient Medications Medications (Trade) Dose Ordered Sig/Shane Route Start Time Stop Time Status Last Admin Dose Admin Miscellaneous (Iv Fluids Completed) 1 ea PRN PRN N/A 09/22/16 16:30 09/22/17 16:29 Acetaminophen (Tylenol Tab) 650 mg Q4H PRN PO 09/22/16 16:45 10/22/16 16:44 Ondansetron HCl (Zofran Inj) 4 mg Q6H PRN IV 09/22/16 16:45 10/22/16 16:44 Glucose (Glucose 40% Gel) 15-30 GRAMS 15 GRAMS... UD PRN PO 09/22/16 17:00 10/22/16 16:59 Glucose (Glucose Chew Tab) 4-8 Tablets 4 Tabl... UD PRN PO 09/22/16 17:00 10/22/16 16:59 Dextrose (Dextrose 50% 50ML Syringe) 25-50ML OF 50% DW IV FOR... UD PRN IV 09/22/16 17:00 10/22/16 16:59 Glucagon (Glucagon Inj) 1 mg UD PRN SQ 09/22/16 17:00 10/22/16 16:59 Miscellaneous Information (Consult Glycemic Management Pharmacy) 1 ea UD PRN N/A 3/13/17 18:07 10/22/16 18:06 Albuterol (Ventolin Hfa Inhaler) 2 puffs QID PRN INH 09/22/16 17:15 10/22/16 17:14 Allopurinol (Zyloprim Tab) 300 mg DAILY PO 09/23/16 09:00 10/23/16 08:59 09/23/16 08:09 300 MG Aspirin (Ecotrin Tab) 81 mg DAILY PO 09/23/16 09:00 10/23/16 08:59 09/23/16 08:09 81 MG Atorvastatin Calcium (Lipitor Tab) 10 mg DAILY PO 09/23/16 09:00 10/23/16 08:59 09/23/16 08:09 10 MG Budesonide/ Formoterol Fumarate (Symbicort 160/ 4.5 Inh) 2 puffs BID INH 09/22/16 21:00 10/22/16 20:59 09/23/16 08:18 2 PUFFS Colchicine (Colchicine Tab) 0.6 mg DAILY PO 09/23/16 09:00 10/23/16 08:59 09/23/16 08:12 0.6 MG Digoxin (Lanoxin Tab) 0.125 mg DAILY@1600 PO 09/22/16 21:00 10/22/16 20:59 Future Hold 09/22/16 19:33 0.125 MG Duloxetine HCl (Cymbalta Cap) 20 mg DAILY PO 09/23/16 09:00 10/23/16 08:59 09/23/16 08:10 20 MG Furosemide (Lasix Tab) 80 mg BID17 PO 09/22/16 21:00 10/22/16 20:59 09/23/16 08:10 80 MG Ketoconazole (Nizoral 2% Crm) 1 appln DAILY PRN EXT 09/22/16 17:15 10/02/16 17:14 Levothyroxine Sodium (Synthroid Tab) 50 mcg DAILYBB PO 09/23/16 06:00 10/23/16 05:59 Levothyroxine Sodium (Synthroid Tab) 200 mcg DAILYBB PO 09/23/16 06:00 10/23/16 05:59 Lisinopril (Zestril Tab) 2.5 mg QAM PO 09/23/16 09:00 10/23/16 08:59 09/23/16 08:13 2.5 MG Metolazone (Zaroxolyn Tab) 10 mg Cabrera@0900 PO 09/28/16 09:00 10/28/16 08:59 Metoprolol Tartrate (Lopressor Tab) 25 mg BID PO 09/22/16 21:00 10/22/16 20:59 09/22/16 19:34 25 MG Spironolactone (Aldactone Tab) 12.5 mg DAILY PO 09/23/16 09:00 10/23/16 08:59 09/23/16 08:12 12.5 MG Warfarin Sodium (Coumadin Tab) 4 mg MoWeFrSa@1600 PO 09/22/16 18:00 10/22/16 17:59 Future Hold 09/22/16 18:24 4 MG Warfarin Sodium (Coumadin Tab) 6 mg SuTuTh@1600 PO 09/23/16 16:00 10/23/16 15:59 Future Hold Cholecalciferol (Vitamin D Tab) 2,000 inter.unit DAILY PO 09/23/16 09:00 10/23/16 08:59 09/23/16 08:10 2,000 INTER.UNIT Dofetilide (Tikosyn) 250 mcg BID PO 09/22/16 21:00 10/22/16 20:59 09/23/16 08:11 250 MCG Pantoprazole Sodium (Protonix Tab) 40 mg QAM PO 09/23/16 09:00 10/23/16 08:59 09/23/16 08:11 40 MG Miscellaneous Information (Pending Order) 1 ea Q1H N/A 09/22/16 20:00 10/22/16 19:59 Future Hold Insulin Human Regular (Insulin IV Infusion Protocol) 1 ea Q1H N/A 09/22/16 20:00 10/22/16 19:59 Future Hold Insulin Glargine (Lantus Vial) 80 unit BID SC 09/23/16 09:00 10/23/16 08:59 09/23/16 09:06 80 UNIT Multi-Ingredient Ointment (Eucerin Unscented Cr) 1 appln TID EXT 09/23/16 14:00 10/23/16 13:59 Insulin Aspart (novoLOG ASPART) SLIDING SCALE ACHS SC 09/23/16 12:30 10/23/16 12:29 09/23/16 12:21 43 UNITS Objective Vital Signs Date Time Temp Pulse Resp B/P Pulse Ox O2 Delivery O2 Flow Rate FiO2 09/23/16 12:35 36.6 91 23 106/30 96 Room Air 09/23/16 12:00 Room Air 09/23/16 08:00 Room Air 09/23/16 07:35 36.6 73 33 97/40 96 Room Air 09/23/16 04:24 36.8 109 20 100/65 96 CPAP 09/23/16 04:00 Room Air 09/23/16 00:31 36.8 70 21 97/44 91 Room Air 09/23/16 00:00 Room Air 09/22/16 21:53 73 93 4.0 09/22/16 20:00 Room Air 09/22/16 19:35 36.9 50 20 114/46 90 Room Air 09/22/16 19:33 82 09/22/16 17:30 37.0 108 26 105/71 Room Air 09/22/16 15:15 67 18 157/94 94 Room Air 91 139/68 95 163/99 09/22/16 14:23 94 09/22/16 14:10 95 Room Air 09/22/16 13:41 37.0 97 18 128/72 90 Room Air Physical Exam General Appearance: no apparent distress, + obese Respiratory/Chest: chest non-tender, lungs clear, normal breath sounds, no respiratory distress, no accessory muscle use Cardiovascular: no murmur, + bradycardia Abdomen: normal bowel sounds, non tender, soft Extremities: + pertinent finding (venous stasis dermatitis) Neurologic/Psychiatric: no motor/sensory deficits, alert, normal mood/affect Laboratory Results Last 24 Hours Test 09/22/16 14:25 09/22/16 20:08 09/22/16 21:13 09/22/16 22:17 White Blood Count 7.58 K/uL Red Blood Count 5.02 M/uL Hemoglobin 15.3 g/dL Hematocrit 45.2 % Mean Corpuscular Volume 90.0 fL Mean Corpuscular Hemoglobin 30.5 pg Mean Corpuscular Hemoglobin Concent 33.8 g/dl Platelet Count 148 K/uL Mean Platelet Volume 11.7 fL Neutrophils (%) (Auto) 69.0 % Lymphocytes (%) (Auto) 18.5 % Monocytes (%) (Auto) 9.8 % Eosinophils (%) (Auto) 2.1 % Basophils (%) (Auto) 0.3 % Neutrophils # (Auto) 5.24 K/uL Lymphocytes # (Auto) 1.40 K/uL Monocytes # (Auto) 0.74 K/uL Eosinophils # (Auto) 0.16 K/uL Basophils # (Auto) 0.02 K/uL RDW Standard Deviation 47.4 fL RDW Coefficient of Variation 14.4 % Immature Granulocyte % (Auto) 0.3 % Immature Granulocyte # (Auto) 0.02 K/uL Prothrombin Time 29.9 SECONDS Prothromb Time International Ratio 2.7 Activated Partial Thromboplast Time 44.3 SECONDS Partial Thromboplastin Ratio 1.7 Sodium Level 137 mmol/L Potassium Level 4.1 mmol/L Chloride Level 97 mmol/L Carbon Dioxide Level 28 mmol/L Anion Gap 12.0 mmol/L Blood Urea Nitrogen 30 mg/dl Creatinine 1.50 mg/dl Est Creatinine Clear Calc Drug Dose 74.2 ml/min Estimated GFR () 56.2 Estimated GFR (Non- 48.5 BUN/Creatinine Ratio 20.1 Random Glucose 159 mg/dl Calcium Level 10.0 mg/dl Magnesium Level 2.3 mg/dl Total Bilirubin 1.6 mg/dl Aspartate Amino Transf (AST/SGOT) 56 U/L Alanine Aminotransferase (ALT/SGPT) 53 U/L Alkaline Phosphatase 78 U/L Troponin I < 0.015 ng/ml Total Protein 7.8 gm/dl Albumin 3.7 gm/dl Globulin 4.1 gm/dl Albumin/Globulin Ratio 0.9 Thyroid Stimulating Hormone (TSH) 0.227 uIu/ml Digoxin Level 0.4 ng/ml Bedside Glucose 160 mg/dl 130 mg/dl 111 mg/dl Test 09/22/16 23:09 09/23/16 00:14 09/23/16 00:15 09/23/16 01:12 Bedside Glucose 110 mg/dl 99 mg/dl 100 mg/dl Urine Color DK YELLOW Urine Appearance CLOUDY Urine pH 5.0 Urine Specific [place] 1.014 Urine Protein NEG Urine Glucose (UA) NEG Urine Ketones TRACE Urine Occult Blood NEG Urine Nitrite NEG Urine Bilirubin NEG Urine Urobilinogen NEG Urine Leukocyte Esterase TRACE Urine WBC (Auto) 1-5 /hpf Urine RBC (Auto) 0-4 /hpf Urine Hyaline Casts (Auto) >30 /lpf Urine Epithelial Cells (Auto) >30 /lpf Urine Bacteria (Auto) NEG Urine Crystals CALCIUM OXALATE Urine Pathogenic Casts /lpf Test 09/23/16 03:09 09/23/16 05:17 09/23/16 05:26 09/23/16 07:02 Bedside Glucose 113 mg/dl 165 mg/dl 191 mg/dl Prothrombin Time 26.7 SECONDS Prothromb Time International Ratio 2.4 Sodium Level 138 mmol/L Potassium Level 3.8 mmol/L Chloride Level 99 mmol/L Carbon Dioxide Level 28 mmol/L Anion Gap 11.0 mmol/L Blood Urea Nitrogen 42 mg/dl Creatinine 1.90 mg/dl Est Creatinine Clear Calc Drug Dose 57.1 ml/min Estimated GFR () 42.2 Estimated GFR (Non- 36.4 BUN/Creatinine Ratio 22.3 Random Glucose 162 mg/dl Calcium Level 8.9 mg/dl Test 09/23/16 11:34 Bedside Glucose 244 mg/dl Assessment and Plan This is a 66 year old male with PMH of morbid obesity, atrial fibrillation on Coumadin, hx. of ischemic cardiomyopathy, insulin dependent DM2, bifascicular block, HTN, HLD, COPD and interstitial lung disease, hx. 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 appreciate cardiology input will consult EP for possible pacemaker insertion in AM (09/24) at this point, holding digoxin, holding Coumadin continue Tikasyn BID as per cardio Diastolic CHF this is a chronic issue echo obtained from this admission shows a normal EF type 2 diastolic dysfunction continue diuretics HTN blood pressure is stable continue lisinopril and metoprolol may need to decrease metoprolol Insulin Dependent DM2 on an insulin pump at home off of pump here, started on basal-bolus regimen glycemic control consult placed COPD On chronic nocturnal O2 Not in acute exacerbation Continue home inhalers SALAS Continue CPAP Hypothyroid TSH slightly low will keep current dose for now to avoid any change in HRs HLD Continue statin Venous Stasis Dermatitis wound care consult placed DVT ppx Coumadin FULL CODE
[2016-09-23] MEDS: EUCERIN CR 120 GM JAR EXT SCH ×2 (14:16→19:34)
[2016-09-23] MEDS ORDERED: WARFARIN SOD 3 MG TAB PO SCH (16:00)
--- NOTE | 2016-09-23 16:12 | Pharmacy Progress Note ---
Glycemic Control: Progress Nt Date of Service Sep 23, 2016. Scope Glycemic Pharmacist consulted by TOM Rg on 09/22/16 for glycemic control and to write orders per [facility] inpatient glycemic control protocol. Objective Accuchecks BSG (last 24hrs): Test 09/22/16 20:08 09/22/16 21:13 09/22/16 22:17 09/22/16 23:09 Bedside Glucose 160 mg/dl (70-99) 130 mg/dl (70-99) 111 mg/dl (70-99) 110 mg/dl (70-99) Test 09/23/16 00:14 09/23/16 01:12 09/23/16 03:09 09/23/16 05:17 Bedside Glucose 99 mg/dl (70-99) 100 mg/dl (70-99) 113 mg/dl (70-99) 165 mg/dl (70-99) Test 09/23/16 05:26 09/23/16 07:02 09/23/16 11:34 Random Glucose 162 mg/dl (70-99) Bedside Glucose 191 mg/dl (70-99) 244 mg/dl (70-99) Laboratory Data (last 24hrs) Test 09/23/16 05:26 Anion Gap 11.0 mmol/L BUN/Creatinine Ratio 22.3 Blood Urea Nitrogen 42 mg/dl Creatinine 1.90 mg/dl Potassium Level 3.8 mmol/L Sodium Level 138 mmol/L HbA1c: 07/25/16 Hgb A1c 7.4% per Epic Recent Pertinent Medications Outpatient Anti-diabetic Regimen: * U-500 insulin pump, basal 276 units/24 hr, plus sliding scale boluses ( previous note used U-500 "units") * A1c = 7.4 % 07/25/16 The patient is currently receiving: * Basal insulin: Lantus 80 units x 1 dose, then will be starting insulin drip * Correctional Insulin: Novolog Correction per scale ACHS Goal Range: Low 100 mg/dL - High 160 mg/dL Correction Factor: 5 mg/dL/unit * Prandial insulin: Per carb ratio of 1 unit per 2 grams CHO consumed Risk Factors for Insulin Resistance: * Recent Surgery: scheduled for pacemaker insertion 09/24 * Diet: type 2 diabetic AHA, good appetite, will be npo after midnight for OR Assessment & Plan ASSESSMENT: * ADA & AACE recommend a goal blood sugar range 140-180 mg/dl for the majority of critically ill & non-critically ill patients. However, more stringent targets may be selected in individual cases. * 66 yo type 2 diabetic,severely insulin resistant, fairly well-controlled on U- 500 pump. Known to us from previous admissions. He has had hypoglycemic episodes in the past, so with his changing diet it will be easier to titrate his insulin needs with an insulin infusion. PLAN FOR INPATIENT GLYCEMIC CONTROL: * Starting IV insulin infusion per moderate stress protocol * Goal Range 100 -200 mg/dl * In the critical care setting, continuous IV insulin infusion has been shown to be the best method for achieving glycemic targets. * Correctional Insulin per insulin infusion rate adjustment calculator * Nutritional / Prandial insulin per carb ratio calculated by insulin infusion rate calculator RECOMMENDATIONS FOR DISCHARGE: * Patient will probably be able to resume his U-500 pump at previous settings, with close followup from outpatient provider. I suggest restarting U-500 pump about 2 hours before stopping insulin drip. * Please note that the plan above was derived based on current level of insulin resistance and hospital stress. These recommendations are appropriate for inpatient admission only. Plan of care upon discharge will need to be reassessed to avoid potential outpatient hypo/hyperglycemia. Thank you.
[2016-09-23] MEDS: INSULIN REGULAR 250 UNITS in SODIUM CHLORIDE 0.9% 250ML 250 ML IV SCH (16:14)
[2016-09-23] MEDS: INSULIN ASPART 100 UNITS/ML VIAL SC SCH ×2 (17:00→20:13)
[2016-09-24] VITALS (8 sets, daily range): BP systolic 101–124; BP diastolic 44–77; PULSE 65–96; TEMP 36.5–36.9; O2SAT 89–96
[2016-09-24] MEDS: LEVOTHYROXINE 50 MCG TAB PO SCH (05:32)
[2016-09-24] MEDS: LEVOTHYROXINE 200 MCG TAB PO SCH (05:32)
[2016-09-24 06:43] LABS: HEMATOCRIT 41.9 % (42-52); MEAN CELL VOLUME 90.5 fL (80-100); MEAN CORPUSCULAR HEMOGLOBIN 30.2 pg (25-34); MEAN CORPUSCULAR HGB CONC 33.4 g/dl (32-36); MEAN PLATELET VOLUME 11.3 fL (7.4-10.4); PLATELET COUNT 128 K/uL (130-400); RED BLOOD COUNT 4.63 M/uL (4.7-6.1); WHITE BLOOD COUNT 5.82 K/uL (4.8-10.8)
[2016-09-24 06:56] LABS: INR 2.2 (0.9-1.1); PROTHROMBIN TIME (PATIENT) 24.7 SECONDS (9.0-12.0)
[2016-09-24 07:15] LABS: BUN/CREATININE RATIO 36.1 (10-20); CALCIUM 8.9 mg/dl (8.5-10.1); CREATININE 1.6 mg/dl (0.60-1.40); MAGNESIUM 2.9 mg/dl (1.8-2.4); POTASSIUM 3.5 mmol/L (3.5-5.1)
[2016-09-24] MEDS: INSULIN ASPART 100 UNITS/ML VIAL SC SCH ×4 (08:00→21:39)
[2016-09-24] MEDS: EUCERIN CR 120 GM JAR EXT SCH ×3 (08:51→21:04)
[2016-09-24] MEDS: BUDESONIDE/FORMOTEROL FUMARATE 160/4.5 60 PUFFS/INHALER INH SCH ×2 (08:51→21:02)
[2016-09-24] MEDS: CHOLECALCIFEROL 1000 INTER.UNIT TAB PO SCH (08:52)
[2016-09-24] MEDS: COLCHICINE 0.6 MG TAB PO SCH (08:52)
[2016-09-24] MEDS: DOFETILIDE 125 MCG CAP PO SCH ×2 (08:52→21:02)
[2016-09-24] MEDS: DULOXETINE HCL 20 MG CAP PO SCH (08:52)
[2016-09-24] MEDS: METOPROLOL TARTRATE 25 MG TAB PO SCH (08:53)
[2016-09-24] MEDS: FUROSEMIDE 80 MG TAB PO SCH ×2 (08:53→17:23)
[2016-09-24] MEDS: ATORVASTATIN 10 MG TAB PO SCH (08:53)
[2016-09-24] MEDS: ASPIRIN 81 MG ECTAB PO SCH (08:54)
[2016-09-24] MEDS: ALLOPURINOL 300 MG TAB PO SCH (08:54)
[2016-09-24] MEDS: SPIRONOLACTONE 25 MG TAB PO SCH (08:54)
[2016-09-24] MEDS: PANTOprazole SOD 40 MG TAB PO SCH (08:56)
[2016-09-24] MEDS: LISINOPRIL 2.5 MG TAB PO SCH (08:56)
--- NOTE | 2016-09-24 11:00 | Cardiology Follow-Up ---
Subjective General Date of Service: Sep 24, 2016. Chief Complaint: afib; syncope Pt evaluation today including: conversation w/ patient, physical exam, chart review, lab review, review of studies, conversation w/ communication consultant, review of inpatient medication list History of Present Illness Patient feeling well this AM. He notes several episodes of dizziness yesterday. No chest pain or SOB. No orthopnea, PND or LE edema. Telemetry reviewed - Persistent atrial flutter this AM with rates 90-110 with frequent PVC's. He did have NSR from approx 2300 on 09/23 to 600 on 09/24, then converting back to afib/flutter. No significant bradyarrhythmias over night. He did have several post conversion dropped beats. Allergies Coded Allergies: No Known Allergies (Verified , 07/19/16) Social History Smoking Status: Never Smoker Hx Tobacco Use In Past Year?: No Hx Alcohol Use - Type And Amou: No Hx Substance Use - Type And Am: No Problem List Medical Problems: (1) Acute cholecystitis Status: Acute (2) Anticoagulated on Coumadin Status: Acute (3) Hordeolum externum (stye) Status: Acute (4) Hypoglycemia Status: Acute (5) Septic joint of left knee joint Status: Acute (6) Urticarial dermatitis Status: Acute Review of Systems Respiratory: No cough, No dyspnea at rest, No hemoptysis, No shortness of breath, No sputum, No wheezing Cardiac: No PND, No chest pain, No edema, No orthopnea, No palpitations Physical Exam Vital Signs Last Vital Signs Documentation Date Time Temp Pulse Resp B/P Pulse Ox O2 Delivery O2 Flow Rate FiO2 09/24/16 08:00 Room Air 09/24/16 08:00 36.8 96 20 104/61 89 09/23/16 22:05 4.0 Physical Exam Constitutional: General Apperance: overweight Level of Distress: NAD Psychiatric: Mental Status: active & alert Orientation: to time, to place, to person Head: normocephalic Eyes: Pupils: PERRLA Neck: supple Lungs: Respiratory effort: no dyspnea Auscultation: no wheezing, no rales/crackles, no rhonchi Cardiovascular: Heart Auscultation: normal S1, normal S2, no murmurs, irregular rate rhythm Abdomen: Bowel Sounds: normal Inspection & Palpation: soft, non-distended Extremities: edema (1+ LE edema. ), pertinent finding (chronic stasis changes) Assessment and Plan Assessment and Plan ASSESSMENT and PLAN: 1. Syncope, with evidence of tachybrady syndrome. Concern for post conversion bradyarrhythmias, pauses. HR ranges 40 in Sinus to 120 in atrial fib /flutter. -he has failed multiple antiarrhythmics and s/p fib/flutter ablations in the past. -continue dofetilide -hold Coumadin -hold digoxin and metoprolol -Discussed with EP, Dr. Rojas. Will evaluate today. He is currently NPO for possible pacemaker. 2. Compensated diastolic heart failure signs and symptoms. -continue diuretics -LVEF 50-55% 3. History of tachycardia induced cardiomyopathy. 4. Long history of conduction system disease, dating back to 2011. Status post May 10, 2014 successful radiofrequency ablation of the cavtricuspid isthmus with creation of a bidirectional isthmus conduction block under conscious sedation. Normal AV node function noted post ablation. 5. Right bundle branch block, left anterior fascicular block, bifascicular block. 6. Chronic renal dysfunction 7. Hypothyroidism 8. Hypertension 9. Dyslipidemia 10. Diabetes 11. Treated obstructive sleep apnea 12. History of bilateral pulmonary embolus Case discussed with Dr. Carbone. Will follow. cardiology attending: Pt seen and examined, agree with findings and assessment as per Suzanne Hicks. No symptoms overnight. For dual chamber pacemaker today. Will then increase metoprolol dose. May consider cardioversion in next few days. INR remains therapeutic. Laboratory Results Last 24 Hours Test 09/23/16 11:34 09/23/16 16:01 09/23/16 16:56 09/23/16 18:01 Bedside Glucose 244 mg/dl 257 mg/dl 247 mg/dl 304 mg/dl Test 09/23/16 19:00 09/23/16 20:03 09/23/16 21:00 09/23/16 22:56 Bedside Glucose 269 mg/dl 251 mg/dl 235 mg/dl 224 mg/dl Test 09/24/16 00:57 09/24/16 01:57 09/24/16 02:59 09/24/16 03:53 Bedside Glucose 238 mg/dl 213 mg/dl 199 mg/dl 195 mg/dl Test 09/24/16 06:02 09/24/16 06:18 09/24/16 07:59 09/24/16 10:09 Bedside Glucose 167 mg/dl 151 mg/dl 160 mg/dl White Blood Count 5.82 K/uL Red Blood Count 4.63 M/uL Hemoglobin 14.0 g/dL Hematocrit 41.9 % Mean Corpuscular Volume 90.5 fL Mean Corpuscular Hemoglobin 30.2 pg Mean Corpuscular Hemoglobin Concent 33.4 g/dl RDW Standard Deviation 47.7 fL RDW Coefficient of Variation 14.6 % Platelet Count 128 K/uL Mean Platelet Volume 11.3 fL Prothrombin Time 24.7 SECONDS Prothromb Time International Ratio 2.2 Sodium Level 136 mmol/L Potassium Level 3.5 mmol/L Chloride Level 98 mmol/L Carbon Dioxide Level 30 mmol/L Anion Gap 8.0 mmol/L Blood Urea Nitrogen 58 mg/dl Creatinine 1.60 mg/dl Est Creatinine Clear Calc Drug Dose 67.7 ml/min Estimated GFR () 52.0 Estimated GFR (Non- 44.9 BUN/Creatinine Ratio 36.1 Random Glucose 172 mg/dl Calcium Level 8.9 mg/dl Magnesium Level 2.9 mg/dl
[2016-09-24] MEDS: INSULIN REGULAR 250 UNITS in SODIUM CHLORIDE 0.9% 250ML 250 ML IV SCH ×3 (11:30→22:10)
--- NOTE | 2016-09-24 11:32 | Procedure Note ---
Pre-Mod Sedation Assessment General Date of Moderate Sedation: Sep 24, 2016. Vital Signs: Vital Signs Past 12 Hours Date Time Temp Pulse Resp B/P Pulse Ox O2 Delivery O2 Flow Rate FiO2 09/24/16 08:00 Room Air 09/24/16 08:00 36.8 96 20 104/61 89 Room Air 09/24/16 04:15 36.9 71 17 115/51 90 Room Air 09/24/16 04:00 Room Air 09/23/16 23:59 Room Air Review Cardiovascular: regular rate, rhythm Abdomen: soft Lungs: lungs clear Airway Class: II Pre-Sedation Airway Assessment Oral Cavity: Dentures Able to Visualize Vocal Cords: No Short Thick Neck: No Hx of Sleep Apnea: No Smoking Status: Never Smoker Mallampati Classification: Class II ASA Classification: Class II Procedure Planning Contraindications-for Mod Sed: None Yes Notes The planned sedation has been discussed with the patient and consent obtained. I have identified the patient, determined the appropriateness of sedation and have assessed the patient immediately prior to the procedure. All medicine(s) and interventions are by my order.
--- NOTE | 2016-09-24 11:58 | Procedure Note ---
Pre-Mod Sedation Assessment General Date of Moderate Sedation: Sep 24, 2016. Vital Signs: Vital Signs Past 12 Hours Date Time Temp Pulse Resp B/P Pulse Ox O2 Delivery O2 Flow Rate FiO2 09/24/16 08:00 Room Air 09/24/16 08:00 36.8 96 20 104/61 89 Room Air 09/24/16 04:15 36.9 71 17 115/51 90 Room Air 09/24/16 04:00 Room Air 09/23/16 23:59 Room Air Review Cardiovascular: + irregularly irregular Abdomen: soft Lungs: lungs clear Airway Class: II Pre-Sedation Airway Assessment Oral Cavity: Dentures Able to Visualize Vocal Cords: No Short Thick Neck: No Hx of Sleep Apnea: No Smoking Status: Never Smoker Mallampati Classification: Class III ASA Classification: Class III Procedure Planning Contraindications-for Mod Sed: None Yes Notes The planned sedation has been discussed with the patient and consent obtained. I have identified the patient, determined the appropriateness of sedation and have assessed the patient immediately prior to the procedure. All medicine(s) and interventions are by my order.
[2016-09-24] MEDS ORDERED: CEFAZOLIN IV 2,000 MG in DEXTROSE 5% 50ML 50 ML IV SCH (12:00)
[2016-09-24] MEDS ORDERED: LIDOCAINE HCL 1% 20 ML VIAL ONE (12:14)
[2016-09-24] MEDS ORDERED: BACITRACIN OINT 0.9 GM PKT ONE (12:14)
[2016-09-24] MEDS ORDERED: FENTANYL CITRATE INJ 50 MCG/1 ML 2 ML VIAL ONE ×2 (12:14→12:36)
[2016-09-24] MEDS ORDERED: MIDAZOLAM HCL 5 MG/ML 1 ML VIAL ONE ×2 (12:14→12:36)
[2016-09-24] MEDS ORDERED: BUPIVACAINE 0.25% 30 ML VIAL ONE (12:15)
[2016-09-24] MEDS ORDERED: BACITRACIN 50000 UNIT VIAL ONE (12:15)
[2016-09-24] MEDS ORDERED: KEFZOL SPECIAL PROCEDURE STOCK 1 GM ADDVIAL IV ONE (12:19)
--- NOTE | 2016-09-24 13:47 | Procedure Note ---
Post-Mod Sedation Assessment General Date of Moderate Sedation Sep 24, 2016. Vital Signs: Vital Signs Past 12 Hours Date Time Temp Pulse Resp B/P Pulse Ox O2 Delivery O2 Flow Rate FiO2 09/24/16 12:02 36.5 65 27 101/44 91 Room Air 09/24/16 08:00 Room Air 09/24/16 08:00 36.8 96 20 104/61 89 Room Air 09/24/16 04:15 36.9 71 17 115/51 90 Room Air 09/24/16 04:00 Room Air Review - Discharge Criteria Vital Signs Stable: Yes Alert/Oriented/Conversant: Yes Returned to Baseline Mental St: Yes Nausea Absent/Minimal: Yes Pain/Discomfort/Absent/Minimal: Yes Normal/Baseline Respirations: Yes Active Bleeding?: No Pt Received D/C Instructions: N/A Prescriptions Given: None Specific Proced. D/C Criteria Distal Pulses Present (Cardiac: N/A Groin site assessed-Card Cath: N/A Voided Prior To Discharge: N/A Discharged Patients Adult Escort/Transportation: N/A
--- NOTE | 2016-09-24 13:48 | [facility] Post Operative Brief Note ---
Immediate Operative Summary Operative Date Sep 24, 2016. Pre-Operative Diagnosis TBS Post-Operative Diagnosis SAME Procedure(s) Performed DUAL CHAMBER PERMANENT PACEMAKER Surgeon PARSANTH MARES Group Home Worker Surgeon(s) NONE Estimated Blood Loss 20CC Findings NONE Fluids (cc crystalloids) 150CC Specimens NONE Drains NONE Anesthesia 7MG VERSED AND 175MCG FENANTYL Complication(s) None Disposition PCU
[2016-09-24] MEDS ORDERED: ACETAMINOPHEN 325 MG TAB PO PRN (14:00)
--- NOTE | 2016-09-24 14:50 | OPERATIVE REPORT ---
DATE OF OPERATION: 09/24/2016 PREOPERATIVE DIAGNOSIS: Tachybrady syndrome. POSTOPERATIVE DIAGNOSIS: Same. PROCEDURE: Dual-chamber rate responsive permanent pacemaker under fluoroscopic guidance along with peripheral venogram. SURGEON: Dr. Harriett Rojas. INFORMATION DEVELOPER: None. ANESTHESIA: Monitored conscious sedation under my supervision, total of 7 mg of Versed, 125 mcg of fentanyl. Start-time 12:28. End time 13:45. administered by Coby Verdugo. IV FLUIDS: 150 mL. BLOOD LOSS: 20 mL. COMPLICATIONS: None. CONDITION: Stable. URINE OUTPUT: Not applicable. SPECIMENS: None. FINDINGS: None. DRAINS: None. INDICATIONS: This 66-year-old gentleman who has a past medical history for paroxysmal atrial fibrillation where he is on Tikosyn. He also has a history of atrial flutter where he underwent a cavotricuspid isthmus line back in April 2014 as well as tachycardia induced cardiomyopathy, but his EF did improve with improvement in his ventricular rate, chronic diastolic heart failure with an EF now of 50%-55%, hypothyroidism, hyperlipidemia, diabetes, morbid obesity, obstructive sleep apnea, compliant with his CPAP and a history of bilateral PE. For the atrial fib, he has been on Tikosyn and Coumadin. He presented to the hospital after a syncopal event and has been having evidence on telemetry over the course of his hospital stay of tachy-sherry syndrome, when he would come out of the AFib, he would be very bradycardic, so permanent pacemaker was recommended. CONSENT: Consent was obtained prior to the patient taken to the electrophysiology lab. The patient was informed of risks, benefits, alternatives to the procedure. Risks include but not limited to sudden cardiac , cardiac arrhythmias, cerebrovascular accident, myocardial infarction, injury to the blood vessels, chamber of the heart, PE lungs, bleeding, infection or blood clots. The patient understood these risks and agreed to the procedure as planned. Informed consent was obtained. DESCRIPTION OF THE PROCEDURE: The patient was brought into the electrophysiology lab in a fasting state. He was connected to continuous awake overnight monitor. A time-out was performed to ensure patient's identity and procedure correctly. The patient was prepped and draped over the left infraclavicular space in normal surgical standard fashion. The patient received prophylactic antibiotics prior to incision. [place] precautions were maintained throughout the procedure and monitored conscious sedation was given throughout the procedure for patient's comfort level. 10 mL of 1% lidocaine, bupivacaine mixture were given in the left deltopectoral groove. Incision was made in left deltopectoral groove. Blunt dissection was performed prior to identify the cephalic vein; however, none could be identified. We did do a peripheral venogram. At this point, using 10 mL of IV contrast along with diluted in 10 mL of saline followed by 20 mL flush, this identified the cephalic vein as well as an axillary, but it was still too difficult for me to obtain access to the cephalic, so I did an axillary stick. Venous access was obtained and an 8-Lithuanian sheath was inserted without any resistance over the guidewire, the dilator was removed and a second guidewire was inserted through the venous sheath to allow for retained venous access. The sheath was then flushed, dilator reinserted and the sheath was reinserted over one of the guidewires. The dilator and guidewire were removed. Right ventricular lead was advanced into the right ventricle and positioned into the right ventricular apex under fluoroscopic guidance. Adequate pacing and sensing thresholds were obtained and there was no diaphragmatic stimulation with pacing. The 8-Lithuanian sheath was peeled away and the lead was fixated to pectoralis muscle using 0 silk suture. A second 8-Lithuanian sheath was advanced over the retained guidewire without any resistance. The guidewire and dilator were removed. Right atrial lead was advanced into the right atrium and positioned into the right atrial appendage. There was adequate sensing of the fib waves and impedance, but threshold testing was not done as patient was currently in AFib. The 8-Lithuanian sheath was peeled away. The lead was fixated to pectoralis muscle using 0 silk suture. Another 5 mL 1% lidocaine, bupivacaine mixture were given within the pectoralis fascia and then using blunt dissection over the pectoralis muscle within the fascia, a pacemaker pocket was created. The pocket was flushed with copious amounts of bacitracin saline wash and inspected for hemostasis. The pulse generator was then attached to the leads making sure that the pins were in appropriate position, passed the set screws and the set screws were all tightened. The pulse generator was then placed in the pocket, making sure that the leads were lying flat beneath the device. The incision was closed in a 3-layer fashion using 2-0 Vicryl interrupted sutures followed by 3-0 Vicryl interrupted followed by a 4-0 Monocryl running stitch and Dermabond was applied. EQUIPMENT: 1. Pulse generator is a [employer]onic Advisa DR YANET Cain [id number], serial # [id number]. 2. Right atrial lead Medtronic 5076-52 cm, serial # [id number]. 3. Right ventricular lead, Medtronic 5076-58 cm, serial # [id number]. INTRAOPERATIVE TESTIN. Right atrial lead fib waves were 4.9 millivolts, impedance 565 ohms. Again, no threshold testing as patient was in AFib. 2. Right ventricular lead: R-wave 6.5 millivolts, impedance 786 ohms, threshold 0.4 volts at 0.4 milliamps. FINAL MEASUREMENTS THROUGH THE DEVICE: 1. Right atrial lead fib waves 3.6 millivolts, impedance 475, again no threshold testing as patient was in AFib. 2. Right ventricular lead: R-wave 7.1 millivolts, impedance 608 ohms, threshold 0.5 volts at 0.4 milliseconds. FINAL PARAMETERS: MVP-R 60/130. Right atrial amplitude 3.5 volts, pulse width 0.4 milliseconds, sensitivity 0.3 millivolts. Right ventricular amplitude 3.5 volts, pulse width 0.4 milliseconds, sensitivity 1.2 millivolts. IMPRESSION: Successful implantation of a dual-chamber rate responsive permanent pacemaker under fluoroscopic guidance along with peripheral venogram secondary to tachy-sherry syndrome. PLAN: Monitor patient overnight, 12-lead ECG, chest x-ray. He is not allowed to lift the left elbow over the left arm for 1 month and no heavy lifting more than 10 pounds with the left arm for 2 weeks. He can shower in a day. He should follow up in my [facility] office for device and wound check in 7-10 days. I attest to the content of the Intraoperative Record and any orders documented therein. Any exceptions are noted below. YANDY
--- NOTE | 2016-09-24 16:25 | Progress Note ---
Subjective Date of Service: Sep 24, 2016. Subjective Pt evaluation today including: conversation w/ patient, physical exam, lab review, review of studies, review of inpatient medication list Saw/examined the patient in room 210 He had his pacemaker placed this afternoon Doing well, had some dizziness this morning prior to the pacemaker placement No other complaints currently Problem List Medical Problems: (1) Acute cholecystitis Status: Acute (2) Anticoagulated on Coumadin Status: Acute (3) Hordeolum externum (stye) Status: Acute (4) Hypoglycemia Status: Acute (5) Septic joint of left knee joint Status: Acute (6) Urticarial dermatitis Status: Acute Review of Systems Constitutional: + weakness, No chills, No fever Respiratory: No cough, No dyspnea on exertion, No shortness of breath, No sputum Cardiac: + edema, No chest pain, No palpitations Neurologic: + balance problems, + numbness/tingling, + weakness Medications Current Inpatient Medications Medications (Trade) Dose Ordered Sig/Shane Route Start Time Stop Time Status Last Admin Dose Admin Miscellaneous (Iv Fluids Completed) 1 ea PRN PRN N/A 09/22/16 16:30 09/22/17 16:29 Ondansetron HCl (Zofran Inj) 4 mg Q6H PRN IV 09/22/16 16:45 10/22/16 16:44 Glucose (Glucose 40% Gel) 15-30 GRAMS 15 GRAMS... UD PRN PO 09/22/16 17:00 10/22/16 16:59 Glucose (Glucose Chew Tab) 4-8 Tablets 4 Tabl... UD PRN PO 09/22/16 17:00 10/22/16 16:59 Dextrose (Dextrose 50% 50ML Syringe) 25-50ML OF 50% DW IV FOR... UD PRN IV 09/22/16 17:00 10/22/16 16:59 Glucagon (Glucagon Inj) 1 mg UD PRN SQ 09/22/16 17:00 10/22/16 16:59 Miscellaneous Information (Consult Glycemic Management Pharmacy) 1 ea UD PRN N/A 09/22/16 18:07 10/22/16 18:06 Albuterol (Ventolin Hfa Inhaler) 2 puffs QID PRN INH 09/22/16 17:15 10/22/16 17:14 Allopurinol (Zyloprim Tab) 300 mg DAILY PO 09/23/16 09:00 10/23/16 08:59 09/24/16 08:54 300 MG Aspirin (Ecotrin Tab) 81 mg DAILY PO 09/23/16 09:00 10/23/16 08:59 09/24/16 08:54 81 MG Atorvastatin Calcium (Lipitor Tab) 10 mg DAILY PO 09/23/16 09:00 10/23/16 08:59 09/24/16 08:53 10 MG Budesonide/ Formoterol Fumarate (Symbicort 160/ 4.5 Inh) 2 puffs BID INH 09/22/16 21:00 10/22/16 20:59 09/24/16 08:51 2 PUFFS Colchicine (Colchicine Tab) 0.6 mg DAILY PO 09/23/16 09:00 10/23/16 08:59 09/24/16 08:52 0.6 MG Digoxin (Lanoxin Tab) 0.125 mg DAILY@1600 PO 09/22/16 21:00 10/22/16 20:59 Future Hold 09/22/16 19:33 0.125 MG Duloxetine HCl (Cymbalta Cap) 20 mg DAILY PO 09/23/16 09:00 10/23/16 08:59 09/24/16 08:52 20 MG Furosemide (Lasix Tab) 80 mg BID17 PO 09/22/16 21:00 10/22/16 20:59 09/24/16 08:53 80 MG Ketoconazole (Nizoral 2% Crm) 1 appln DAILY PRN EXT 09/22/16 17:15 10/02/16 17:14 Levothyroxine Sodium (Synthroid Tab) 50 mcg DAILYBB PO 09/23/16 06:00 10/23/16 05:59 Levothyroxine Sodium (Synthroid Tab) 200 mcg DAILYBB PO 09/23/16 06:00 10/23/16 05:59 Lisinopril (Zestril Tab) 2.5 mg QAM PO 09/23/16 09:00 10/23/16 08:59 09/24/16 08:56 2.5 MG Metolazone (Zaroxolyn Tab) 10 mg Cabrera@0900 PO 09/28/16 09:00 10/28/16 08:59 Spironolactone (Aldactone Tab) 12.5 mg DAILY PO 09/23/16 09:00 10/23/16 08:59 09/24/16 08:54 12.5 MG Warfarin Sodium (Coumadin Tab) 4 mg MoWeFrSa@1600 PO 09/22/16 18:00 10/22/16 17:59 Future Hold 09/22/16 18:24 4 MG Warfarin Sodium (Coumadin Tab) 6 mg SuTuTh@1600 PO 09/23/16 16:00 10/23/16 15:59 Future Hold Cholecalciferol (Vitamin D Tab) 2,000 inter.unit DAILY PO 09/23/16 09:00 10/23/16 08:59 09/24/16 08:52 2,000 INTER.UNIT Dofetilide (Tikosyn) 250 mcg BID PO 09/22/16 21:00 10/22/16 20:59 09/24/16 08:52 250 MCG Pantoprazole Sodium (Protonix Tab) 40 mg QAM PO 09/23/16 09:00 10/23/16 08:59 09/24/16 08:56 40 MG Multi-Ingredient Ointment 1 appln 1 appln TID EXT 09/23/16 14:00 10/23/16 13:59 09/24/16 14:27 1 APPLN Insulin Human Regular/Sodium Chloride (novoLIN-R/Nss 250ml) 252.5 ml @ 0 mls/hr DAILY@1130 IV 09/23/16 16:00 10/23/16 15:59 09/23/16 16:14 3.8 MLS/HR Insulin Aspart (novoLOG ASPART) SLIDING SCALE PCHS SC 09/23/16 17:15 10/23/16 17:14 09/24/16 14:40 5 UNITS Metoprolol Tartrate (Lopressor Tab) 50 mg BID PO 09/24/16 21:00 10/24/16 20:59 Oxycodone/ Acetaminophen (Percocet 5-325mg Tab) 1 tab for pain scale 4-6 2 t... Q6H PRN PO 09/24/16 14:00 10/08/16 13:59 Acetaminophen (Tylenol Tab) 650 mg Q4H PRN PO 09/24/16 14:00 10/24/16 13:59 Objective Vital Signs Date Time Temp Pulse Resp B/P Pulse Ox O2 Delivery O2 Flow Rate FiO2 09/24/16 16:00 Room Air 09/24/16 15:00 65 22 106/46 92 Nasal Cannula 3.0 09/24/16 14:17 36.5 66 21 107/46 90 Nasal Cannula 3.0 09/24/16 14:00 80 16 152/90 95 Room Air 09/24/16 13:45 80 16 149/90 95 Room Air 09/24/16 12:02 36.5 65 27 101/44 91 Room Air 09/24/16 12:00 Room Air 09/24/16 08:00 Room Air 09/24/16 08:00 36.8 96 20 104/61 89 Room Air 09/24/16 04:15 36.9 71 17 115/51 90 Room Air 09/24/16 04:00 Room Air 09/23/16 23:59 Room Air 09/23/16 22:58 71 22 110/40 93 Room Air 09/23/16 22:05 88 94 4.0 09/23/16 20:00 Room Air 09/23/16 18:50 36.6 74 20 134/61 90 Room Air Physical Exam General Appearance: no apparent distress Respiratory/Chest: lungs clear, normal breath sounds, no respiratory distress, no accessory muscle use, + pertinent finding (pacer inserted, currently bandaged up) Cardiovascular: regular rate, rhythm Extremities: + pertinent finding (venous stasis dermatitis; PVD changes) Neurologic/Psychiatric: no motor/sensory deficits, alert, normal mood/affect Laboratory Results Last 24 Hours Test 09/23/16 16:56 09/23/16 18:01 09/23/16 19:00 09/23/16 20:03 Bedside Glucose 247 mg/dl 304 mg/dl 269 mg/dl 251 mg/dl Test 09/23/16 21:00 09/23/16 22:56 09/24/16 00:57 09/24/16 01:57 Bedside Glucose 235 mg/dl 224 mg/dl 238 mg/dl 213 mg/dl Test 09/24/16 02:59 09/24/16 03:53 09/24/16 06:02 09/24/16 06:18 Bedside Glucose 199 mg/dl 195 mg/dl 167 mg/dl White Blood Count 5.82 K/uL Red Blood Count 4.63 M/uL Hemoglobin 14.0 g/dL Hematocrit 41.9 % Mean Corpuscular Volume 90.5 fL Mean Corpuscular Hemoglobin 30.2 pg Mean Corpuscular Hemoglobin Concent 33.4 g/dl RDW Standard Deviation 47.7 fL RDW Coefficient of Variation 14.6 % Platelet Count 128 K/uL Mean Platelet Volume 11.3 fL Prothrombin Time 24.7 SECONDS Prothromb Time International Ratio 2.2 Sodium Level 136 mmol/L Potassium Level 3.5 mmol/L Chloride Level 98 mmol/L Carbon Dioxide Level 30 mmol/L Anion Gap 8.0 mmol/L Blood Urea Nitrogen 58 mg/dl Creatinine 1.60 mg/dl Est Creatinine Clear Calc Drug Dose 67.7 ml/min Estimated GFR () 52.0 Estimated GFR (Non- 44.9 BUN/Creatinine Ratio 36.1 Random Glucose 172 mg/dl Calcium Level 8.9 mg/dl Magnesium Level 2.9 mg/dl Test 09/24/16 07:59 09/24/16 10:09 09/24/16 11:50 09/24/16 14:14 Bedside Glucose 151 mg/dl 160 mg/dl 174 mg/dl 164 mg/dl Test 09/24/16 16:04 Bedside Glucose 210 mg/dl Assessment and Plan This is a 66 year old male with PMH of morbid obesity, atrial fibrillation on Coumadin, hx. of ischemic cardiomyopathy, insulin dependent DM2, bifascicular block, HTN, HLD, COPD and interstitial lung disease, hx. of multiple PEs, SALAS on CPAP presents s/p syncopal episode Syncope and Fall 09/24 appreciate cardiology input PPM placed this morning as per drug and alcohol treatment specialist - appreciated monitor on tele will likely need medical management to prevent tachycardia 09/23 patient presented with syncope and fall multiple cardiac issues going on on tele, 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 appreciate cardiology input will consult EP for possible pacemaker insertion in AM (09/24) at this point, holding digoxin, holding Coumadin continue Tikasyn BID as per cardio Diastolic CHF this is a chronic issue echo obtained from this admission shows a normal EF type 2 diastolic dysfunction continue diuretics HTN blood pressure is stable continue lisinopril and metoprolol may need to decrease metoprolol Insulin Dependent DM2 on an insulin pump at home off of pump here, started on basal-bolus regimen glycemic control consult placed COPD On chronic nocturnal O2 Not in acute exacerbation Continue home inhalers SALAS Continue CPAP Hypothyroid TSH slightly low will keep current dose for now to avoid any change in HRs HLD Continue statin Venous Stasis Dermatitis wound care consult placed DVT ppx Coumadin FULL CODE
[2016-09-24] MEDS: OXYCODONE/ACETAMINOPHEN 5-325 TAB PO PRN ×2 (18:32→21:03)
[2016-09-24] MEDS ORDERED: METOPROLOL TARTRATE 50 MG TAB PO SCH (21:00)
[2016-09-25] VITALS (17 sets, daily range): BP systolic 108–135; BP diastolic 53–87; PULSE 60–93; TEMP 36.6–37.1; O2SAT 87–97; Ht 172.7 cm; Wt 156.8 kg
[2016-09-25] MEDS: INSULIN REGULAR 250 UNITS in SODIUM CHLORIDE 0.9% 250ML 250 ML IV SCH ×4 (01:05→19:21)
[2016-09-25] MEDS: LEVOTHYROXINE 200 MCG TAB PO SCH (06:09)
[2016-09-25] MEDS: LEVOTHYROXINE 50 MCG TAB PO SCH (06:09)
--- NOTE | 2016-09-25 06:40 | DIAGNOSTIC IMAGING REPORT ---
CHEST 2 VIEWS ROUTINE CLINICAL HISTORY: EXACT TIME ORDERED Evaluate for pneumothorax and lead placement COMPARISON STUDY: 09/22/2016 FINDINGS: Permanent bipolar cardiac pacemaker. Leads are in good position. No evidence pneumothorax. IMPRESSION: Permanent bipolar cardiac pacemaker with leads in good position. No evidence pneumothorax. Electronically signed by: Jcarlos Petersen M.D. 09/25/2016 6:39 AM Dictated Date/Time: 09/25/2016 6:38 AM
[2016-09-25 07:30] LABS: MEAN CELL VOLUME 91.3 fL (80-100); MEAN CORPUSCULAR HEMOGLOBIN 31.4 pg (25-34); MEAN CORPUSCULAR HGB CONC 34.4 g/dl (32-36); MEAN PLATELET VOLUME 11.1 fL (7.4-10.4); PLATELET COUNT 138 K/uL (130-400); RED BLOOD COUNT 4.71 M/uL (4.7-6.1); WHITE BLOOD COUNT 7.62 K/uL (4.8-10.8)
[2016-09-25 07:47] LABS: INR 1.8 (0.9-1.1); PROTHROMBIN TIME (PATIENT) 19.6 SECONDS (9.0-12.0)
[2016-09-25 08:03] LABS: BUN/CREATININE RATIO 35.3 (10-20); CALCIUM 9.3 mg/dl (8.5-10.1); CREATININE 1.4 mg/dl (0.60-1.40); POTASSIUM 3.8 mmol/L (3.5-5.1)
[2016-09-25] MEDS: EUCERIN CR 120 GM JAR EXT SCH ×3 (08:10→19:48)
[2016-09-25] MEDS: SPIRONOLACTONE 25 MG TAB PO SCH (08:11)
[2016-09-25] MEDS: BUDESONIDE/FORMOTEROL FUMARATE 160/4.5 60 PUFFS/INHALER INH SCH ×2 (08:11→19:53)
[2016-09-25] MEDS: COLCHICINE 0.6 MG TAB PO SCH (08:13)
[2016-09-25] MEDS: DULOXETINE HCL 20 MG CAP PO SCH (08:14)
[2016-09-25] MEDS: ASPIRIN 81 MG ECTAB PO SCH (08:18)
[2016-09-25] MEDS: FUROSEMIDE 80 MG TAB PO SCH ×2 (08:19→16:18)
[2016-09-25] MEDS: ATORVASTATIN 10 MG TAB PO SCH (08:20)
[2016-09-25] MEDS: PANTOprazole SOD 40 MG TAB PO SCH (08:22)
[2016-09-25] MEDS: DOFETILIDE 125 MCG CAP PO SCH (08:24)
[2016-09-25] MEDS: CHOLECALCIFEROL 1000 INTER.UNIT TAB PO SCH (08:26)
[2016-09-25] MEDS: LISINOPRIL 2.5 MG TAB PO SCH (08:28)
[2016-09-25] MEDS: ALLOPURINOL 300 MG TAB PO SCH (08:29)
--- NOTE | 2016-09-25 08:44 | Cardiology Follow-Up ---
Subjective Subjective Date of Service: Sep 25, 2016. Pt evaluation today including: conversation w/ patient, physical exam, chart review, lab review, review of studies, review of inpatient medication list Pain: none PO Intake: good Problem List Medical Problems: (1) Acute cholecystitis Status: Acute (2) Anticoagulated on Coumadin Status: Acute (3) Hordeolum externum (stye) Status: Acute (4) Hypoglycemia Status: Acute (5) Septic joint of left knee joint Status: Acute (6) Urticarial dermatitis Status: Acute Review of Systems Constitutional: + weakness, No fever Respiratory: No dyspnea on exertion, No shortness of breath Cardiac: + edema, No chest pain, No palpitations Abdomen: No nausea, No vomiting Neurologic: + balance problems, + numbness/tingling, + weakness Endo: + fatigue Objective Vital Signs Last Vital Signs Documentation Date Time Temp Pulse Resp B/P Pulse Ox O2 Delivery O2 Flow Rate FiO2 09/25/16 07:43 36.6 67 14 108/53 95 Room Air 09/25/16 04:26 3.0 Physical Exam: General Appearance: WD/WN, no apparent distress Eyes: bilateral eyes EOMI, bilateral eyes PERRL Neck: supple Respiratory/Chest: lungs clear, normal breath sounds, + pertinent finding ( left pectoral incision intact no hematoma mild ecchymosis) Cardiovascular: regular rate, rhythm, no murmur Abdomen: normal bowel sounds, non tender, soft Extremities: + pertinent finding (venous stasis dermatitis; PVD changes; +1 LE edema b/l) Neurologic/Psychiatric: no motor/sensory deficits, alert, normal mood/affect Assessment and Plan Impression: 1. TBS s/p dual chamber ppm 09/24/2016 2. pAF failed tikosyn on coumadin 3. H/o Tachycardia induced cardiomyopathy with EF now improved 50-55% 4. Chronic diastolic HF, NYHA Class III 5. SALAS on CPAP 6. Abnormal TSH 7. CKD stage III Plan: -Normal pacemaker function -Pt is back in Sinus rhythm today -Stop tikosyn -Start metoprolol 50mg BID -Consider amiodarone to maintain SR after tikosyn washout -Check free T4 since TSH abnormal; LFTS ok (in case we start amiodarone) -Pt not allowed to lift the left elbow over the left shoulder for 1 month -Pt not allowed to lift more than 10 pounds with the left arm for 2 weeks -Pt can shower tomorrow do not scrub the incision -F/u in our office for device check in 7 days Medications: Medications Administered Medications (Trade) Dose Ordered Sig/Shane Route Start Time Stop Time Status Last Admin Dose Admin Allopurinol (Zyloprim Tab) 300 mg DAILY PO 09/23/16 09:00 10/23/16 08:59 09/25/16 08:29 300 MG Aspirin (Ecotrin Tab) 81 mg DAILY PO 09/23/16 09:00 10/23/16 08:59 09/25/16 08:18 81 MG Atorvastatin Calcium (Lipitor Tab) 10 mg DAILY PO 09/23/16 09:00 10/23/16 08:59 09/25/16 08:20 10 MG Budesonide/ Formoterol Fumarate (Symbicort 160/ 4.5 Inh) 2 puffs BID INH 09/22/16 21:00 10/22/16 20:59 09/25/16 08:11 2 PUFFS Colchicine (Colchicine Tab) 0.6 mg DAILY PO 09/23/16 09:00 10/23/16 08:59 09/25/16 08:13 0.6 MG Digoxin (Lanoxin Tab) 0.125 mg DAILY@1600 PO 09/22/16 21:00 10/22/16 20:59 Future Hold 09/22/16 19:33 0.125 MG Duloxetine HCl (Cymbalta Cap) 20 mg DAILY PO 09/23/16 09:00 10/23/16 08:59 09/25/16 08:14 20 MG Furosemide (Lasix Tab) 80 mg BID17 PO 09/22/16 21:00 10/22/16 20:59 09/25/16 08:19 80 MG Levothyroxine Sodium (Synthroid Tab) 50 mcg DAILYBB PO 09/23/16 06:00 10/23/16 05:59 09/25/16 06:09 50 MCG Levothyroxine Sodium (Synthroid Tab) 200 mcg DAILYBB PO 09/23/16 06:00 10/23/16 05:59 09/25/16 06:09 200 MCG Lisinopril (Zestril Tab) 2.5 mg QAM PO 09/23/16 09:00 4/13/17 08:59 09/25/16 08:28 2.5 MG Metoprolol Tartrate (Lopressor Tab) 25 mg BID PO 09/22/16 21:00 09/24/16 12:25 DC 09/24/16 08:53 25 MG Spironolactone (Aldactone Tab) 12.5 mg DAILY PO 09/23/16 09:00 10/23/16 08:59 09/25/16 08:11 12.5 MG Warfarin Sodium (Coumadin Tab) 4 mg MoWeFrSa@1600 PO 09/22/16 18:00 10/22/16 17:59 Future Hold 09/22/16 18:24 4 MG Cholecalciferol (Vitamin D Tab) 2,000 inter.unit DAILY PO 09/23/16 09:00 10/23/16 08:59 09/25/16 08:26 2,000 INTER.UNIT Dofetilide (Tikosyn) 250 mcg BID PO 09/22/16 21:00 10/22/16 20:59 09/25/16 08:24 250 MCG Pantoprazole Sodium (Protonix Tab) 40 mg QAM PO 09/23/16 09:00 10/23/16 08:59 09/25/16 08:22 40 MG Insulin Aspart (novoLOG ASPART) SLIDING SCALE ACHS FL 09/22/16 21:00 09/23/16 12:12 DC 09/23/16 08:05 35 UNITS Perflutren Lipid Microsphere (Definity) 2 ml ONE ONCE IV 09/23/16 07:18 09/23/16 07:19 DC 09/23/16 07:19 2 ML Insulin Glargine (Lantus Vial) 80 unit BID SC 09/23/16 09:00 09/23/16 13:31 DC 09/23/16 09:06 80 UNIT Multi-Ingredient Ointment (Eucerin Unscented Cr) 1 appln TID EXT 09/23/16 14:00 10/23/16 13:59 09/25/16 08:10 1 APPLN Insulin Aspart SLIDING SCALE ACHS SC 09/23/16 12:30 09/23/16 13:48 DC 09/23/16 12:21 43 UNITS Insulin Human Regular/Sodium Chloride (novoLIN-R/Nss 250ml) 252.5 ml @ 0 mls/hr DAILY@1130 IV 09/23/16 16:00 10/23/16 15:59 09/25/16 01:05 5.9 MLS/HR Insulin Aspart SLIDING SCALE PCHS SC 09/23/16 17:15 10/23/16 17:14 09/24/16 21:39 2 UNITS Cefazolin Sodium/ Dextrose (Ancef Iv/D5 50ml) 60 ml @ 100 mls/hr PREOP@1200 IV 09/24/16 12:00 09/24/16 16:00 DC 09/24/16 12:00 100 MLS/HR Midazolam HCl (Versed Inj) 5 mg STK-MED ONCE .ROUTE 09/24/16 12:14 09/24/16 12:17 DC 09/24/16 12:14 5 MG Fentanyl Citrate (Fentanyl Inj) 100 mcg STK-MED ONCE .ROUTE 09/24/16 12:14 09/24/16 12:17 DC 09/24/16 12:14 100 MCG Bacitracin (Bacitracin Oint) 1 appln STK-MED ONCE .ROUTE 09/24/16 12:14 09/24/16 12:17 DC 09/24/16 12:31 1 APPLN Lidocaine HCl (Xylocaine 1% Inj (Local)) 20 ml STK-MED ONCE .ROUTE 09/24/16 12:14 09/24/16 12:18 DC 09/24/16 12:14 20 ML Bupivacaine HCl (Sensorcaine 0.25% Inj) 30 ml STK-MED ONCE .ROUTE 09/24/16 12:15 09/24/16 12:18 DC 09/24/16 12:15 30 ML Bacitracin (Bacitracin Inj) 50,000 units STK-MED ONCE .ROUTE 09/24/16 12:15 09/24/16 12:18 DC 09/24/16 12:15 50,000 UNITS Cefazolin Sodium (Kefzol Iv) 1 gm STK-MED ONCE IV 09/24/16 12:19 09/24/16 12:22 DC 09/24/16 12:19 1 GM Metoprolol Tartrate (Lopressor Tab) 50 mg BID PO 09/24/16 21:00 10/24/16 20:59 09/24/16 21:02 50 MG Midazolam HCl (Versed Inj) 5 mg STK-MED ONCE .ROUTE 09/24/16 12:36 09/24/16 12:39 DC 09/24/16 12:36 2 MG Fentanyl Citrate (Fentanyl Inj) 100 mcg STK-MED ONCE .ROUTE 09/24/16 12:36 09/24/16 12:39 DC 09/24/16 12:36 75 MCG Oxycodone/ Acetaminophen (Percocet 5-325mg Tab) 1 tab for pain scale 4-6 2 t... Q6H PRN PO 09/24/16 14:00 10/08/16 13:59 09/24/16 21:03 1 TAB Acetaminophen (Tylenol Tab) 650 mg Q4H PRN PO 09/24/16 14:00 10/24/16 13:59 09/24/16 17:25 650 MG Lab Results: Telemetry:Now SR CXR: No PTX; RA and RV lead in place ECG:SR 1st degree AV block LAFB RBBB Pacemaker Interrogation: Normal function stable lead testing since implant Last 24 Hours Test 09/24/16 10:09 09/24/16 11:50 09/24/16 14:14 09/24/16 16:04 Bedside Glucose 160 mg/dl 174 mg/dl 164 mg/dl 210 mg/dl Test 09/24/16 16:57 09/24/16 18:07 09/24/16 18:50 09/24/16 20:03 Bedside Glucose 183 mg/dl 237 mg/dl 204 mg/dl 177 mg/dl Test 09/24/16 22:12 09/24/16 23:03 09/25/16 00:01 09/25/16 01:04 Bedside Glucose 135 mg/dl 124 mg/dl 110 mg/dl 97 mg/dl Test 09/25/16 02:05 09/25/16 03:19 09/25/16 04:23 09/25/16 06:26 Bedside Glucose 114 mg/dl 103 mg/dl 118 mg/dl 113 mg/dl Test 09/25/16 07:18 09/25/16 07:50 White Blood Count 7.62 K/uL Red Blood Count 4.71 M/uL Hemoglobin 14.8 g/dL Hematocrit 43.0 % Mean Corpuscular Volume 91.3 fL Mean Corpuscular Hemoglobin 31.4 pg Mean Corpuscular Hemoglobin Concent 34.4 g/dl RDW Standard Deviation 48.5 fL RDW Coefficient of Variation 14.5 % Platelet Count 138 K/uL Mean Platelet Volume 11.1 fL Prothrombin Time 19.6 SECONDS Prothromb Time International Ratio 1.8 Sodium Level 138 mmol/L Potassium Level 3.8 mmol/L Chloride Level 100 mmol/L Carbon Dioxide Level 30 mmol/L Anion Gap 8.0 mmol/L Blood Urea Nitrogen 49 mg/dl Creatinine 1.40 mg/dl Est Creatinine Clear Calc Drug Dose 77.7 ml/min Estimated GFR () 61.1 Estimated GFR (Non- 52.7 BUN/Creatinine Ratio 35.3 Random Glucose 113 mg/dl Calcium Level 9.3 mg/dl Bedside Glucose 105 mg/dl
[2016-09-25] MEDS: INSULIN ASPART 100 UNITS/ML VIAL SC SCH ×4 (09:05→21:00)
[2016-09-25] MEDS: OXYCODONE/ACETAMINOPHEN 5-325 TAB PO PRN (09:54)
[2016-09-25] MEDS: METOPROLOL TARTRATE 50 MG TAB PO SCH ×2 (09:54→19:53)
--- NOTE | 2016-09-25 11:00 | Cardiology Follow-Up ---
Subjective General Date of Service: Sep 25, 2016. Chief Complaint: afib; syncope Pt evaluation today including: conversation w/ patient, conversation w/ family , physical exam, chart review, lab review, review of studies, review of inpatient medication list History of Present Illness Patient feeling ok this AM. Notes only mild incisional soreness. No SOB. No sense of palpitations. No recurrent dizziness/syncope. No chest pain. No orthopnea, PND or LE edema. Telemetry reviewed - Reveals NSR since about 2200 on 09/24/16 with intermittent pacing and PVC's. Allergies Coded Allergies: No Known Allergies (Verified , 07/19/16) Social History Smoking Status: Never Smoker Hx Tobacco Use In Past Year?: No Hx Alcohol Use - Type And Amou: No Hx Substance Use - Type And Am: No Problem List Medical Problems: (1) Acute cholecystitis Status: Acute (2) Anticoagulated on Coumadin Status: Acute (3) Hordeolum externum (stye) Status: Acute (4) Hypoglycemia Status: Acute (5) Septic joint of left knee joint Status: Acute (6) Urticarial dermatitis Status: Acute Review of Systems Respiratory: No cough, No dyspnea at rest, No hemoptysis, No shortness of breath, No sputum, No wheezing Cardiac: No PND, No chest pain, No orthopnea, No palpitations Physical Exam Vital Signs Last Vital Signs Documentation Date Time Temp Pulse Resp B/P Pulse Ox O2 Delivery O2 Flow Rate FiO2 09/25/16 09:49 68 124/60 09/25/16 07:45 95 Room Air 09/25/16 07:43 36.6 14 09/25/16 04:26 3.0 Physical Exam Constitutional: General Apperance: overweight Level of Distress: NAD Psychiatric: Mental Status: active & alert Orientation: to time, to place, to person Head: normocephalic Eyes: Pupils: PERRLA Neck: supple Lungs: Respiratory effort: no dyspnea Auscultation: no wheezing, no rales/crackles, no rhonchi Cardiovascular: Heart Auscultation: RRR, normal S1, normal S2, no murmurs Abdomen: Bowel Sounds: normal Inspection & Palpation: soft, non-distended Extremities: edema (1+ LE edema. ), pertinent finding (chronic stasis changes) Assessment and Plan Assessment and Plan ASSESSMENT and PLAN: 1. Syncope, with evidence of tachybrady syndrome. - s/p dual chamber pacemaker with Medtronic device on 09/24/16 -tolerated procedure. Normal pacer function this AM. -Long history of conduction abnromalities, failing antiarrhythmics and ablations -Per review of history - previously on Amiodarone and discontinued due to questionable pulmonary toxicity. -Has been on dofetilide with recurrent atrial arrhythmias -Per EP - Stop Dofetilide and digoxin, metoprolol 50 mg BID ordered. Will monitor for future arrhythmias on device interrogations. -Resume coumadin today. 2. Compensated diastolic heart failure signs and symptoms. -continue diuretics on discharge -LVEF 50-55% 3. History of tachycardia induced cardiomyopathy. Will need to monitor HR and rhyhtm on device checks now that he is off antiarrhythmic. 4. Long history of conduction system disease, dating back to 2011. Status post May 10, 2014 successful radiofrequency ablation of the cavtricuspid isthmus with creation of a bidirectional isthmus conduction block under conscious sedation. Normal AV node function noted post ablation. 5. Right bundle branch block, left anterior fascicular block, bifascicular block. 6. Chronic renal dysfunction 7. Hypothyroidism 8. Hypertension 9. Dyslipidemia 10. Diabetes 11. Treated obstructive sleep apnea 12. History of bilateral pulmonary embolus Patient is hesitant about going home with new med changes and device. Will monitor 1 more night on telemetry and likely discharge in AM on 09/26. Case discussed with Dr. Lambert and Dr. Rojas. Will follow CARDIOLOGY ATTENDING ADDENDUM: The patient was seen and personally examined. Agree with Suzanne Simmons PA-C's findings and plans as documented above. Pt. Sister does not have his insulin pump ready today, D/C tomorrow Laboratory Results Last 24 Hours Test 09/24/16 11:50 09/24/16 14:14 09/24/16 16:04 09/24/16 16:57 Bedside Glucose 174 mg/dl 164 mg/dl 210 mg/dl 183 mg/dl Test 09/24/16 18:07 09/24/16 18:50 09/24/16 20:03 09/24/16 22:12 Bedside Glucose 237 mg/dl 204 mg/dl 177 mg/dl 135 mg/dl Test 09/24/16 23:03 09/25/16 00:01 09/25/16 01:04 09/25/16 02:05 Bedside Glucose 124 mg/dl 110 mg/dl 97 mg/dl 114 mg/dl Test 09/25/16 03:19 09/25/16 04:23 09/25/16 06:26 09/25/16 07:18 Bedside Glucose 103 mg/dl 118 mg/dl 113 mg/dl White Blood Count 7.62 K/uL Red Blood Count 4.71 M/uL Hemoglobin 14.8 g/dL Hematocrit 43.0 % Mean Corpuscular Volume 91.3 fL Mean Corpuscular Hemoglobin 31.4 pg Mean Corpuscular Hemoglobin Concent 34.4 g/dl RDW Standard Deviation 48.5 fL RDW Coefficient of Variation 14.5 % Platelet Count 138 K/uL Mean Platelet Volume 11.1 fL Prothrombin Time 19.6 SECONDS Prothromb Time International Ratio 1.8 Sodium Level 138 mmol/L Potassium Level 3.8 mmol/L Chloride Level 100 mmol/L Carbon Dioxide Level 30 mmol/L Anion Gap 8.0 mmol/L Blood Urea Nitrogen 49 mg/dl Creatinine 1.40 mg/dl Est Creatinine Clear Calc Drug Dose 77.7 ml/min Estimated GFR () 61.1 Estimated GFR (Non- 52.7 BUN/Creatinine Ratio 35.3 Random Glucose 113 mg/dl Calcium Level 9.3 mg/dl Test 09/25/16 07:50 09/25/16 08:47 Bedside Glucose 105 mg/dl 173 mg/dl
--- NOTE | 2016-09-25 15:05 | Pharmacy Progress Note ---
Glycemic: Assessment & Plan Date of Service Sep 25, 2016. Assessment & Plan The patient is currently receiving 5.9 units of insulin infusion per hour. BSGs ranging 100 - 200 mg/dl over the past 24hrs. POD#1 after pacemaker insertion. Patient's friend will bring in patient's own U-500 pump tomorrow am. Will continue insulin drip until own pump is available. May restart own pump at previous settings, but continue insulin infusion for 2 hrs after starting own pump, or until titrated off by insulin infusion rate adjustment calculator, whichever comes first. * Basal insulin: Regular insulin 1 unit/ml in NSS rate adjusted by insulin infusion calculator * Correctional Insulin: Insulin drip per calculator * Prandial insulin: Per carb ratio per insulin infusion calculator- currently 1 unit per 5 grams CHO consumed BSGs continue to improve, no changes needed to inpatient regimen at this time. Pharmacy will continue to monitor patient daily and write orders per [facility] inpatient glycemic control protocol. Thanks. * Please note that the plan above was derived based on current level of insulin resistance and hospital stress. These recommendations are appropriate for inpatient admission only. Plan of care upon discharge will need to be reassessed to avoid potential outpatient hypo/hyperglycemia.
--- NOTE | 2016-09-25 17:11 | Progress Note ---
Subjective Date of Service: Sep 25, 2016. Subjective Pt evaluation today including: conversation w/ patient, physical exam, lab review, review of studies, review of inpatient medication list Saw/examined the patient in room 210 He is doing well, no chest pain or palpitations No other issues to note Problem List Medical Problems: (1) Acute cholecystitis Status: Acute (2) Anticoagulated on Coumadin Status: Acute (3) Hordeolum externum (stye) Status: Acute (4) Hypoglycemia Status: Acute (5) Septic joint of left knee joint Status: Acute (6) Urticarial dermatitis Status: Acute Review of Systems Constitutional: No chills, No fever Respiratory: No cough, No dyspnea at rest, No dyspnea on exertion, No hemoptysis, No shortness of breath, No sputum, No wheezing Cardiac: No chest pain, No edema, No palpitations Abdomen: No diarrhea, No nausea, No pain, No vomiting Endo: No excessive thirst, No excessive urination, No fatigue Medications Current Inpatient Medications Medications (Trade) Dose Ordered Sig/Shane Route Start Time Stop Time Status Last Admin Dose Admin Miscellaneous (Iv Fluids Completed) 1 ea PRN PRN N/A 09/22/16 16:30 09/22/17 16:29 Ondansetron HCl (Zofran Inj) 4 mg Q6H PRN IV 09/22/16 16:45 10/22/16 16:44 Glucose (Glucose 40% Gel) 15-30 GRAMS 15 GRAMS... UD PRN PO 09/22/16 17:00 10/22/16 16:59 Glucose (Glucose Chew Tab) 4-8 Tablets 4 Tabl... UD PRN PO 09/22/16 17:00 10/22/16 16:59 Dextrose (Dextrose 50% 50ML Syringe) 25-50ML OF 50% DW IV FOR... UD PRN IV 09/22/16 17:00 10/22/16 16:59 Glucagon (Glucagon Inj) 1 mg UD PRN SQ 09/22/16 17:00 10/22/16 16:59 Miscellaneous Information (Consult Glycemic Management Pharmacy) 1 ea UD PRN N/A 09/22/16 18:07 10/22/16 18:06 Albuterol (Ventolin Hfa Inhaler) 2 puffs QID PRN INH 09/22/16 17:15 10/22/16 17:14 Allopurinol (Zyloprim Tab) 300 mg DAILY PO 09/23/16 09:00 10/23/16 08:59 09/25/16 08:29 300 MG Aspirin (Ecotrin Tab) 81 mg DAILY PO 09/23/16 09:00 10/23/16 08:59 09/25/16 08:18 81 MG Atorvastatin Calcium (Lipitor Tab) 10 mg DAILY PO 09/23/16 09:00 10/23/16 08:59 09/25/16 08:20 10 MG Budesonide/ Formoterol Fumarate (Symbicort 160/ 4.5 Inh) 2 puffs BID INH 09/22/16 21:00 10/22/16 20:59 09/25/16 08:11 2 PUFFS Colchicine (Colchicine Tab) 0.6 mg DAILY PO 09/23/16 09:00 10/23/16 08:59 09/25/16 08:13 0.6 MG Duloxetine HCl (Cymbalta Cap) 20 mg DAILY PO 09/23/16 09:00 10/23/16 08:59 09/25/16 08:14 20 MG Furosemide (Lasix Tab) 80 mg BID17 PO 09/22/16 21:00 10/22/16 20:59 09/25/16 16:18 80 MG Ketoconazole (Nizoral 2% Crm) 1 appln DAILY PRN EXT 09/22/16 17:15 10/02/16 17:14 Levothyroxine Sodium (Synthroid Tab) 50 mcg DAILYBB PO 09/23/16 06:00 10/23/16 05:59 09/25/16 06:09 50 MCG Levothyroxine Sodium (Synthroid Tab) 200 mcg DAILYBB PO 09/23/16 06:00 10/23/16 05:59 09/25/16 06:09 200 MCG Lisinopril (Zestril Tab) 2.5 mg QAM PO 09/23/16 09:00 10/23/16 08:59 09/25/16 08:28 2.5 MG Metolazone (Zaroxolyn Tab) 10 mg Cabrera@0900 PO 09/28/16 09:00 10/28/16 08:59 Spironolactone (Aldactone Tab) 12.5 mg DAILY PO 09/23/16 09:00 10/23/16 08:59 09/25/16 08:11 12.5 MG Warfarin Sodium (Coumadin Tab) 4 mg MoWeFrSa@1600 PO 09/22/16 18:00 10/22/16 17:59 Future hold 09/22/16 18:24 4 MG Warfarin Sodium (Coumadin Tab) 6 mg SuTuTh@1600 PO 09/23/16 16:00 10/23/16 15:59 Future hold 09/25/16 16:17 6 MG Cholecalciferol (Vitamin D Tab) 2,000 inter.unit DAILY PO 09/23/16 09:00 10/23/16 08:59 09/25/16 08:26 2,000 INTER.UNIT Pantoprazole Sodium (Protonix Tab) 40 mg QAM PO 09/23/16 09:00 10/23/16 08:59 09/25/16 08:22 40 MG Multi-Ingredient Ointment 1 appln 1 appln TID EXT 09/23/16 14:00 10/23/16 13:59 09/25/16 14:00 1 APPLN Insulin Human Regular/Sodium Chloride (novoLIN-R/Nss 250ml) 252.5 ml @ 0 mls/hr DAILY@1130 IV 09/23/16 16:00 10/23/16 15:59 09/25/16 15:33 5.9 MLS/HR Insulin Aspart (novoLOG ASPART) SLIDING SCALE PCHS SC 09/23/16 17:15 10/23/16 17:14 09/25/16 11:54 6 UNITS Oxycodone/ Acetaminophen (Percocet 5-325mg Tab) 1 tab for pain scale 4-6 2 t... Q6H PRN PO 09/24/16 14:00 10/08/16 13:59 09/25/16 09:54 1 TAB Acetaminophen (Tylenol Tab) 650 mg Q4H PRN PO 09/24/16 14:00 10/24/16 13:59 09/24/16 17:25 650 MG Metoprolol Tartrate (Lopressor Tab) 50 mg BID PO 09/25/16 09:00 10/25/16 08:59 09/25/16 09:54 50 MG Objective Vital Signs Date Time Temp Pulse Resp B/P Pulse Ox O2 Delivery O2 Flow Rate FiO2 3/16/17 15:35 36.6 70 18 123/61 91 Room Air 09/25/16 13:17 91 Room Air 09/25/16 13:01 37.0 09/25/16 12:54 63 16 133/62 94 Room Air 09/25/16 12:00 95 Room Air 09/25/16 09:49 68 124/60 09/25/16 08:00 95 Room Air 09/25/16 07:45 95 Room Air 09/25/16 07:43 36.6 67 14 108/53 95 Room Air 09/25/16 04:26 36.7 60 18 128/58 94 Nasal Cannula 3.0 09/25/16 04:15 94 Nasal Cannula 3.0 09/25/16 00:08 36.6 64 18 126/87 94 Nasal Cannula 3.0 09/25/16 00:05 87 Room Air 09/24/16 20:30 96 Nasal Cannula 3.0 09/24/16 19:13 36.5 66 16 112/77 96 Room Air Physical Exam General Appearance: no apparent distress, + obese Respiratory/Chest: lungs clear, normal breath sounds, no respiratory distress, no accessory muscle use, + pertinent finding (pacemaker; left arm in sling, no tenderness) Cardiovascular: regular rate, rhythm Extremities: + pertinent finding (venous stasis dermatitis, +1-2 edema) Neurologic/Psychiatric: no motor/sensory deficits, alert, normal mood/affect Laboratory Results Last 24 Hours Test 09/24/16 16:57 09/24/16 18:07 09/24/16 18:50 09/24/16 20:03 Bedside Glucose 183 mg/dl 237 mg/dl 204 mg/dl 177 mg/dl Test 09/24/16 22:12 09/24/16 23:03 09/25/16 00:01 09/25/16 01:04 Bedside Glucose 135 mg/dl 124 mg/dl 110 mg/dl 97 mg/dl Test 09/25/16 02:05 09/25/16 03:19 09/25/16 04:23 09/25/16 06:26 Bedside Glucose 114 mg/dl 103 mg/dl 118 mg/dl 113 mg/dl Test 09/25/16 07:18 09/25/16 07:50 09/25/16 08:47 09/25/16 10:42 White Blood Count 7.62 K/uL Red Blood Count 4.71 M/uL Hemoglobin 14.8 g/dL Hematocrit 43.0 % Mean Corpuscular Volume 91.3 fL Mean Corpuscular Hemoglobin 31.4 pg Mean Corpuscular Hemoglobin Concent 34.4 g/dl RDW Standard Deviation 48.5 fL RDW Coefficient of Variation 14.5 % Platelet Count 138 K/uL Mean Platelet Volume 11.1 fL Prothrombin Time 19.6 SECONDS Prothromb Time International Ratio 1.8 Sodium Level 138 mmol/L Potassium Level 3.8 mmol/L Chloride Level 100 mmol/L Carbon Dioxide Level 30 mmol/L Anion Gap 8.0 mmol/L Blood Urea Nitrogen 49 mg/dl Creatinine 1.40 mg/dl Est Creatinine Clear Calc Drug Dose 77.7 ml/min Estimated GFR () 61.1 Estimated GFR (Non- 52.7 BUN/Creatinine Ratio 35.3 Random Glucose 113 mg/dl Calcium Level 9.3 mg/dl Bedside Glucose 105 mg/dl 173 mg/dl 199 mg/dl Test 09/25/16 12:31 Bedside Glucose 172 mg/dl Assessment and Plan This is a 66 year old male with PMH of morbid obesity, atrial fibrillation on Coumadin, hx. of ischemic cardiomyopathy, insulin dependent DM2, bifascicular block, HTN, HLD, COPD and interstitial lung disease, hx. of multiple PEs, SALAS on CPAP presents s/p syncopal episode Syncope and Fall 09/25 patient is doing well today started on metoprolol, permanent pacemaker put in yesterday off of digoxin, off of Tikosyn Coumadin restarted d/c pending for tomorrow - insulin pump to be brought in tomorrow 09/24 appreciate cardiology input PPM placed this morning as per leasing specialist - appreciated monitor on tele will likely need medical management to prevent tachycardia 09/23 patient presented with syncope and fall multiple cardiac issues going on on tele, 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 appreciate cardiology input will consult EP for possible pacemaker insertion in AM (09/24) at this point, holding digoxin, holding Coumadin continue Tikasyn BID as per cardio Diastolic CHF this is a chronic issue echo obtained from this admission shows a normal EF type 2 diastolic dysfunction continue diuretics HTN blood pressure is stable continue lisinopril and metoprolol may need to decrease metoprolol Insulin Dependent DM2 on an insulin pump at home off of pump here, started on basal-bolus regimen glycemic control consult placed COPD On chronic nocturnal O2 Not in acute exacerbation Continue home inhalers SALAS Continue CPAP Hypothyroid TSH slightly low will keep current dose for now to avoid any change in HRs HLD Continue statin Venous Stasis Dermatitis wound care consult placed DVT ppx Coumadin FULL CODE
[2016-09-26 00:10] VITALS: O2SAT 97
[2016-09-26] MEDS: INSULIN REGULAR 250 UNITS in SODIUM CHLORIDE 0.9% 250ML 250 ML IV SCH ×2 (00:15→07:45)
[2016-09-26 03:41] VITALS: BP 129/72; PULSE 91; TEMP 37.1; O2SAT 91
[2016-09-26] MEDS: LEVOTHYROXINE 50 MCG TAB PO SCH (05:41)
[2016-09-26] MEDS: LEVOTHYROXINE 200 MCG TAB PO SCH (05:41)
[2016-09-26 07:40] VITALS: BP 123/68; PULSE 76; TEMP 36.5; O2SAT 92
[2016-09-26 07:45] LABS: HEMATOCRIT 42.6 % (42-52); MEAN CELL VOLUME 89.7 fL (80-100); MEAN CORPUSCULAR HEMOGLOBIN 29.9 pg (25-34); MEAN CORPUSCULAR HGB CONC 33.3 g/dl (32-36); MEAN PLATELET VOLUME 11.3 fL (7.4-10.4); PLATELET COUNT 140 K/uL (130-400); RED BLOOD COUNT 4.75 M/uL (4.7-6.1); WHITE BLOOD COUNT 6.81 K/uL (4.8-10.8)
[2016-09-26] MEDS: INSULIN ASPART 100 UNITS/ML VIAL SC SCH (07:45)
[2016-09-26 07:55] LABS: INR 1.5 (0.9-1.1); PROTHROMBIN TIME (PATIENT) 16.8 SECONDS (9.0-12.0)
[2016-09-26] MEDS: ASPIRIN 81 MG ECTAB PO SCH (07:57)
[2016-09-26] MEDS: ATORVASTATIN 10 MG TAB PO SCH (07:57)
[2016-09-26] MEDS: EUCERIN CR 120 GM JAR EXT SCH ×2 (07:57→13:07)
[2016-09-26] MEDS: FUROSEMIDE 80 MG TAB PO SCH (07:57)
[2016-09-26] MEDS: BUDESONIDE/FORMOTEROL FUMARATE 160/4.5 60 PUFFS/INHALER INH SCH (07:57)
[2016-09-26] MEDS: METOPROLOL TARTRATE 50 MG TAB PO SCH (07:58)
[2016-09-26] MEDS: COLCHICINE 0.6 MG TAB PO SCH (07:58)
[2016-09-26] MEDS: PANTOprazole SOD 40 MG TAB PO SCH (07:58)
[2016-09-26] MEDS: CHOLECALCIFEROL 1000 INTER.UNIT TAB PO SCH (07:58)
[2016-09-26] MEDS: SPIRONOLACTONE 25 MG TAB PO SCH (07:58)
[2016-09-26] MEDS: ALLOPURINOL 300 MG TAB PO SCH (07:59)
[2016-09-26] MEDS: DULOXETINE HCL 20 MG CAP PO SCH (07:59)
[2016-09-26] MEDS: LISINOPRIL 2.5 MG TAB PO SCH (07:59)
[2016-09-26 08:21] LABS: BUN/CREATININE RATIO 34.8 (10-20); CALCIUM 9.7 mg/dl (8.5-10.1); CREATININE 1.2 mg/dl (0.60-1.40); POTASSIUM 3.5 mmol/L (3.5-5.1)
[2016-09-26] MEDS ORDERED: HUMULIN R U SC PRN (09:30)
[2016-09-26] MEDS ORDERED: METOPROLOL TARTRATE 50 MG TAB PO ONE (10:00)
--- NOTE | 2016-09-26 10:04 | Pharmacy Progress Note ---
Glycemic: Assessment & Plan Date of Service Sep 26, 2016. Assessment & Plan ASSESSMENT: The patient is currently receiving IV insulin infusion per protocol. BSGs ranging 113 - 199 mg/dl over the past 24hrs. Pt is to d/c home today. Plan is to stop IV inulin infusion and transition back to SQ insulin pump per outpatient settings. PLAN: * Pt's friend is to bring in outpatient SQ insulin pump, insulin, and supplies * Once pump arrives may resume insulin pump and D/C IV insulin infusion * Pt is to manage BSGs with insulin pump per outpatient settings. * RN will have patient read and sign agreement [id number] Insulin Pump Therapy Patient Agreement. * RN will provide and explain form [id number] Flowsheet for Patient * Patient will document their insulin dose given on NS-824 which is kept at the bedside, available to caregivers upon request, and which becomes part of the permanent medical record. * If at any time the patients condition evidences that he/she is not able to manage the insulin pump (i.e. frequent hypo/hyperglycemia) Pharmacy will assume glycemic control by discontinuing the pump & managing with SQ basal bolus insulin regimen for the interim. BSGs continue to improve, no changes needed to inpatient regimen at this time. Pharmacy will continue to monitor patient daily and write orders per [facility] inpatient glycemic control protocol. Thanks. * Please note that the plan above was derived based on current level of insulin resistance and hospital stress. These recommendations are appropriate for inpatient admission only. Plan of care upon discharge will need to be reassessed to avoid potential outpatient hypo/hyperglycemia.
[2016-09-26] MEDS ORDERED: [UNRECOGNIZED DRUG - OTHER] SCH (11:00)
[2016-09-26 11:16] VITALS: BP 104/54; PULSE 72; TEMP 36.9; O2SAT 95
--- NOTE | 2016-09-26 11:21 | Cardiology Follow-Up ---
Subjective General Date of Service: Sep 26, 2016. Chief Complaint: afib; syncope Pt evaluation today including: conversation w/ patient, physical exam, chart review, lab review, review of studies, review of inpatient medication list History of Present Illness Patient feeling well this AM. No acute complaints. Denies symptoms of dizziness, chest pain, SOB, or worsening LE edema. Only mild incisional tenderness. Allergies Coded Allergies: No Known Allergies (Verified , 07/19/16) Social History Smoking Status: Never Smoker Hx Tobacco Use In Past Year?: No Hx Alcohol Use - Type And Amou: No Hx Substance Use - Type And Am: No Problem List Medical Problems: (1) Acute cholecystitis Status: Acute (2) Anticoagulated on Coumadin Status: Acute (3) Hordeolum externum (stye) Status: Acute (4) Hypoglycemia Status: Acute (5) Septic joint of left knee joint Status: Acute (6) Urticarial dermatitis Status: Acute Review of Systems Respiratory: No cough, No dyspnea at rest, No hemoptysis, No shortness of breath, No sputum, No wheezing Cardiac: + edema, No PND, No chest pain, No orthopnea, No palpitations Physical Exam Vital Signs Last Vital Signs Documentation Date Time Temp Pulse Resp B/P Pulse Ox O2 Delivery O2 Flow Rate FiO2 09/26/16 08:00 Room Air 09/26/16 07:40 36.5 76 18 123/68 92 09/25/16 22:33 4.0 Physical Exam Constitutional: General Apperance: overweight Level of Distress: NAD Psychiatric: Mental Status: active & alert Orientation: to time, to place, to person Head: normocephalic Eyes: Pupils: PERRLA Neck: supple Lungs: Respiratory effort: no dyspnea Auscultation: no wheezing, no rales/crackles, no rhonchi Cardiovascular: Heart Auscultation: RRR, normal S1, normal S2, no murmurs Abdomen: Bowel Sounds: normal Inspection & Palpation: soft, non-distended Extremities: edema, pertinent finding (chronic stasis changes) Assessment and Plan Assessment and Plan ASSESSMENT and PLAN: 1. Syncope, with evidence of tachybrady syndrome. - s/p dual chamber pacemaker with [employer]tr[employer] device on 09/24/16 -tolerated procedure. Normal pacer function. Incision healing well without evidence of hematoma or drainage. -Long history of conduction abnormalities, failing antiarrhythmics and ablations -Per review of history - previously on Amiodarone and discontinued due to questionable pulmonary toxicity. -Has been on dofetilide with recurrent atrial arrhythmias -Dofetilide stopped. -Had recurrent atrial fib last night, Rates predominnatly 90-110 on monitor -increase metoprolol tartrate to 100 mg BID -resume home dose digoxin 2. Compensated diastolic heart failure signs and symptoms. -continue diuretics on discharge -LVEF 50-55% 3. History of tachycardia induced cardiomyopathy. Will need to monitor HR and rhyhtm on device checks now that he is off antiarrhythmic. 4. Long history of conduction system disease, dating back to 2011. Status post May 10, 2014 successful radiofrequency ablation of the cavtricuspid isthmus with creation of a bidirectional isthmus conduction block under conscious sedation. Normal AV node function noted post ablation. 5. Right bundle branch block, left anterior fascicular block, bifascicular block. 6. Chronic renal dysfunction 7. Hypothyroidism 8. Hypertension 9. Dyslipidemia 10. Diabetes 11. Treated obstructive sleep apnea 12. History of bilateral pulmonary embolus Discussed with Dr. Lambert Stable cardiac signs/symptoms for discharge today. Medications discussed with hospitalist. . Patient is scheduled for 1 week device check. He is aware of this appointment. CARDIOLOGY ATTENDING ADDENDUM: The patient was seen and personally examined. Agree with Suzanne Simmons PA-C's findings and plans as documented above. Laboratory Results Last 24 Hours Test 09/25/16 12:31 09/25/16 15:23 09/25/16 17:04 09/25/16 18:59 Bedside Glucose 172 mg/dl 130 mg/dl 127 mg/dl 178 mg/dl Test 09/25/16 20:17 09/25/16 21:19 09/25/16 22:13 09/26/16 00:08 Bedside Glucose 156 mg/dl 160 mg/dl 145 mg/dl 117 mg/dl Test 09/26/16 01:10 09/26/16 02:13 09/26/16 04:14 09/26/16 06:39 Bedside Glucose 120 mg/dl 121 mg/dl 130 mg/dl 123 mg/dl Test 09/26/16 06:40 09/26/16 08:35 09/26/16 10:29 White Blood Count 6.81 K/uL Red Blood Count 4.75 M/uL Hemoglobin 14.2 g/dL Hematocrit 42.6 % Mean Corpuscular Volume 89.7 fL Mean Corpuscular Hemoglobin 29.9 pg Mean Corpuscular Hemoglobin Concent 33.3 g/dl RDW Standard Deviation 47.0 fL RDW Coefficient of Variation 14.5 % Platelet Count 140 K/uL Mean Platelet Volume 11.3 fL Prothrombin Time 16.8 SECONDS Prothromb Time International Ratio 1.5 Sodium Level 137 mmol/L Potassium Level 3.5 mmol/L Chloride Level 100 mmol/L Carbon Dioxide Level 26 mmol/L Anion Gap 11.0 mmol/L Blood Urea Nitrogen 42 mg/dl Creatinine 1.20 mg/dl Est Creatinine Clear Calc Drug Dose 91.3 ml/min Estimated GFR () 73.6 Estimated GFR (Non- 63.5 BUN/Creatinine Ratio 34.8 Random Glucose 125 mg/dl Calcium Level 9.7 mg/dl Free Thyroxine 0.94 ng/dl Bedside Glucose 148 mg/dl 177 mg/dl
[2016-09-26 13:08] VITALS: BP 104/54; PULSE 72; TEMP 36.9; O2SAT 95
--- NOTE | 2016-09-26 13:19 | Progress Note ---
Subjective Date of Service: Sep 26, 2016. Subjective Pt evaluation today including: conversation w/ patient, conversation w/ family , physical exam, lab review, review of studies, conversation w/ architecture consultant, review of inpatient medication list Saw/examined the patient in room 210 Doing well, no problems/issues to note Pacemaker in place; went into A. Fib last night as per tele monitoring metoprolol was increased and digoxin restarted patient denies symptoms Problem List Medical Problems: (1) Acute cholecystitis Status: Acute (2) Anticoagulated on Coumadin Status: Acute (3) Hordeolum externum (stye) Status: Acute (4) Hypoglycemia Status: Acute (5) Septic joint of left knee joint Status: Acute (6) Urticarial dermatitis Status: Acute Review of Systems Constitutional: No chills, No fever Respiratory: No cough, No dyspnea at rest, No dyspnea on exertion, No hemoptysis, No shortness of breath, No sputum, No wheezing Cardiac: No chest pain, No edema, No palpitations Abdomen: No GI bleeding, No constipation, No diarrhea, No nausea, No pain, No vomiting Neurologic: No memory loss Psychiatric: No depression symptoms Heme: No abnormal bleeding/bruising Medications Current Inpatient Medications Medications (Trade) Dose Ordered Sig/Shane Route Start Time Stop Time Status Last Admin Dose Admin Miscellaneous (Iv Fluids Completed) 1 ea PRN PRN N/A 09/22/16 16:30 09/22/17 16:29 Ondansetron HCl (Zofran Inj) 4 mg Q6H PRN IV 09/22/16 16:45 10/22/16 16:44 Glucose (Glucose 40% Gel) 15-30 GRAMS 15 GRAMS... UD PRN PO 09/22/16 17:00 10/22/16 16:59 Glucose (Glucose Chew Tab) 4-8 Tablets 4 Tabl... UD PRN PO 09/22/16 17:00 10/22/16 16:59 Dextrose (Dextrose 50% 50ML Syringe) 25-50ML OF 50% DW IV FOR... UD PRN IV 09/22/16 17:00 10/22/16 16:59 Glucagon (Glucagon Inj) 1 mg UD PRN SQ 09/22/16 17:00 10/22/16 16:59 Miscellaneous Information (Consult Glycemic Management Pharmacy) 1 ea UD PRN N/A 09/22/16 18:07 10/22/16 18:06 Albuterol (Ventolin Hfa Inhaler) 2 puffs QID PRN INH 09/22/16 17:15 10/22/16 17:14 Allopurinol (Zyloprim Tab) 300 mg DAILY PO 09/23/16 09:00 10/23/16 08:59 09/26/16 07:59 300 MG Aspirin (Ecotrin Tab) 81 mg DAILY PO 09/23/16 09:00 10/23/16 08:59 09/26/16 07:57 81 MG Atorvastatin Calcium (Lipitor Tab) 10 mg DAILY PO 09/23/16 09:00 10/23/16 08:59 09/26/16 07:57 10 MG Budesonide/ Formoterol Fumarate (Symbicort 160/ 4.5 Inh) 2 puffs BID INH 09/22/16 21:00 10/22/16 20:59 09/26/16 07:57 2 PUFFS Colchicine (Colchicine Tab) 0.6 mg DAILY PO 09/23/16 09:00 10/23/16 08:59 09/26/16 07:58 0.6 MG Duloxetine HCl (Cymbalta Cap) 20 mg DAILY PO 09/23/16 09:00 10/23/16 08:59 09/26/16 07:59 20 MG Furosemide (Lasix Tab) 80 mg BID17 PO 09/22/16 21:00 10/22/16 20:59 09/26/16 07:57 80 MG Ketoconazole (Nizoral 2% Crm) 1 appln DAILY PRN EXT 09/22/16 17:15 10/02/16 17:14 Levothyroxine Sodium (Synthroid Tab) 50 mcg DAILYBB PO 09/23/16 06:00 10/23/16 05:59 09/26/16 05:41 50 MCG Levothyroxine Sodium (Synthroid Tab) 200 mcg DAILYBB PO 09/23/16 06:00 10/23/16 05:59 09/26/16 05:41 200 MCG Lisinopril (Zestril Tab) 2.5 mg QAM PO 09/23/16 09:00 10/23/16 08:59 09/26/16 07:59 2.5 MG Metolazone (Zaroxolyn Tab) 10 mg Cabrera@0900 PO 09/28/16 09:00 10/28/16 08:59 Spironolactone (Aldactone Tab) 12.5 mg DAILY PO 09/23/16 09:00 10/23/16 08:59 09/26/16 07:58 12.5 MG Warfarin Sodium (Coumadin Tab) 4 mg MoWeFrSa@1600 PO 09/22/16 18:00 10/22/16 17:59 Future hold 09/22/16 18:24 4 MG Warfarin Sodium (Coumadin Tab) 6 mg SuTuTh@1600 PO 09/23/16 16:00 10/23/16 15:59 Future hold 09/25/16 16:17 6 MG Cholecalciferol (Vitamin D Tab) 2,000 inter.unit DAILY PO 09/23/16 09:00 10/23/16 08:59 09/26/16 07:58 2,000 INTER.UNIT Pantoprazole Sodium (Protonix Tab) 40 mg QAM PO 09/23/16 09:00 10/23/16 08:59 09/26/16 07:58 40 MG Multi-Ingredient Ointment (Eucerin Unscented Cr) 1 appln TID EXT 09/23/16 14:00 10/23/16 13:59 09/26/16 07:57 1 APPLN Oxycodone/ Acetaminophen (Percocet 5-325mg Tab) 1 tab for pain scale 4-6 2 t... Q6H PRN PO 09/24/16 14:00 10/08/16 13:59 09/25/16 09:54 1 TAB Acetaminophen (Tylenol Tab) 650 mg Q4H PRN PO 09/24/16 14:00 10/24/16 13:59 09/24/16 17:25 650 MG Metoprolol Tartrate (Lopressor Tab) 100 mg BID PO 09/26/16 21:00 10/26/16 20:59 Digoxin (Lanoxin Tab) 0.125 mg DAILY@16 PO 09/26/16 16:00 10/26/16 15:59 Insulin Human Regular (Insulin Humulin Regular U-500 Pump) 1 ea ACHS N/A 09/26/16 11:00 10/26/16 10:59 09/26/16 10:05 1 EA Insulin Human Regular (Humulin-R U-500) ACHS PRN SC 09/26/16 09:30 10/26/16 09:29 Objective Vital Signs Date Time Temp Pulse Resp B/P Pulse Ox O2 Delivery O2 Flow Rate FiO2 09/26/16 12:00 Room Air 09/26/16 11:16 36.9 72 18 104/54 95 Room Air 09/26/16 08:00 Room Air 09/26/16 07:40 36.5 76 18 123/68 92 Room Air 09/26/16 04:10 Room Air 09/26/16 03:41 37.1 91 18 129/72 91 Room Air 09/26/16 00:10 97 BiPAP 09/25/16 23:52 37.1 93 18 133/70 97 BiPAP 09/25/16 22:33 85 97 4.0 09/25/16 20:10 96 Room Air 09/25/16 19:25 36.8 71 16 135/61 96 Room Air 09/25/16 16:45 Room Air 09/25/16 16:00 Room Air 09/25/16 15:35 36.6 70 18 123/61 91 Room Air 09/25/16 13:17 91 Room Air Physical Exam General Appearance: no apparent distress, + obese, + pertinent finding (66 year old male, sitting comfortably at bedside; pacemaker inserted to left chest wall; insulin pump re-inserted) Respiratory/Chest: chest non-tender, lungs clear, normal breath sounds, no respiratory distress, no accessory muscle use Cardiovascular: regular rate, rhythm, no murmur Abdomen: normal bowel sounds, non tender, soft, + pertinent finding (+insulin pump) Extremities: + swelling, + pertinent finding (venous stasis dermatitis) Neurologic/Psychiatric: no motor/sensory deficits, alert, normal mood/affect Laboratory Results Last 24 Hours Test 09/25/16 15:23 09/25/16 17:04 09/25/16 18:59 09/25/16 20:17 Bedside Glucose 130 mg/dl 127 mg/dl 178 mg/dl 156 mg/dl Test 09/25/16 21:19 09/25/16 22:13 09/26/16 00:08 09/26/16 01:10 Bedside Glucose 160 mg/dl 145 mg/dl 117 mg/dl 120 mg/dl Test 09/26/16 02:13 09/26/16 04:14 09/26/16 06:39 09/26/16 06:40 Bedside Glucose 121 mg/dl 130 mg/dl 123 mg/dl White Blood Count 6.81 K/uL Red Blood Count 4.75 M/uL Hemoglobin 14.2 g/dL Hematocrit 42.6 % Mean Corpuscular Volume 89.7 fL Mean Corpuscular Hemoglobin 29.9 pg Mean Corpuscular Hemoglobin Concent 33.3 g/dl RDW Standard Deviation 47.0 fL RDW Coefficient of Variation 14.5 % Platelet Count 140 K/uL Mean Platelet Volume 11.3 fL Prothrombin Time 16.8 SECONDS Prothromb Time International Ratio 1.5 Sodium Level 137 mmol/L Potassium Level 3.5 mmol/L Chloride Level 100 mmol/L Carbon Dioxide Level 26 mmol/L Anion Gap 11.0 mmol/L Blood Urea Nitrogen 42 mg/dl Creatinine 1.20 mg/dl Est Creatinine Clear Calc Drug Dose 91.3 ml/min Estimated GFR () 73.6 Estimated GFR (Non- 63.5 BUN/Creatinine Ratio 34.8 Random Glucose 125 mg/dl Calcium Level 9.7 mg/dl Free Thyroxine 0.94 ng/dl Test 09/26/16 08:35 09/26/16 10:29 Bedside Glucose 148 mg/dl 177 mg/dl Assessment and Plan This is a 66 year old male with PMH of morbid obesity, atrial fibrillation on Coumadin, hx. of ischemic cardiomyopathy, insulin dependent DM2, bifascicular block, HTN, HLD, COPD and interstitial lung disease, hx. of multiple PEs, SALAS on CPAP presents s/p syncopal episode Syncope and Fall 09/26 doing well today Metoprolol dose increased digoxin restarted outpatient pacer check on October 02 Outpatient PCP follow-up on October 01 - Coumadin clinic on October 0109/25 patient is doing well today started on metoprolol, permanent pacemaker put in yesterday off of digoxin, off of Tikosyn Coumadin restarted d/c pending for tomorrow - insulin pump to be brought in tomorrow 09/24 appreciate cardiology input PPM placed this morning as per internet security specialist - appreciated monitor on tele will likely need medical management to prevent tachycardia 09/23 patient presented with syncope and fall multiple cardiac issues going on on tele, 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 appreciate cardiology input will consult EP for possible pacemaker insertion in AM (09/24) at this point, holding digoxin, holding Coumadin continue Tikasyn BID as per cardio Diastolic CHF this is a chronic issue echo obtained from this admission shows a normal EF type 2 diastolic dysfunction continue diuretics HTN blood pressure is stable continue lisinopril and metoprolol may need to decrease metoprolol Insulin Dependent DM2 on an insulin pump at home off of pump here, started on basal-bolus regimen glycemic control consult placed COPD On chronic nocturnal O2 Not in acute exacerbation Continue home inhalers SALAS Continue CPAP Hypothyroid TSH slightly low will keep current dose for now to avoid any change in HRs HLD Continue statin Venous Stasis Dermatitis wound care consult placed DVT ppx Coumadin FULL CODE
[2016-09-26] MEDS ORDERED: LPR100 PO (13:21)
--- NOTE | 2016-09-26 13:25 | Discharge Instructions ---
Discharge Instructions Date of Service Sep 26, 2016. Admission Reason for Admission: Syncope Discharge Discharge Diagnosis / Problem: Syncope, Tachy-Jared Syndrome Discharge Goals Goal(s): Decrease discomfort, Improve function Activity Recommendations Activity Limitations: resume your previous activity . Instructions / Follow-Up Instructions / Follow-Up Please follow-up with Dr. Jara on October 01 @ 8:30AM Your dose of Metoprolol is increased to 100mg twice a day Continue taking digoxin Stop taking Tikosyn You should follow up with the Coumadin clinic on October 01 as well You will have a pacemaker check on October 02 Current Hospital Diet Patient's current hospital diet: AHA Diet (Heart Healthy), Diabetes Type 2 Diet Discharge Diet Recommended Diet: AHA Diet (Heart Healthy), Diabetes Type 2 Diet Procedures Procedures Performed: DUAL CHAMBER PERMANENT PACEMAKER Pending Studies Studies pending at discharge: no Medical Emergencies . Who to Call and When: Medical Emergencies: If at any time you feel your situation is an emergency, please call 911 immediately. . Non-Emergent Contact Non-Emergency issues call your: Primary Care Provider, Speedometer Mechanic . . "Provider Documentation" section prepared by Deya Fay. VTE Core Measure Inpt VTE Proph given/why not?: Warfarin (Coumadin)
--- NOTE | 2016-09-26 13:27 | Discharge Summary ---
Discharge Summary Date of Service Sep 26, 2016. Discharge Summary Admission Date: Sep 24, 2016 at 14:56 Discharge Date: Sep 26, 2016 Discharge Disposition: Home Principal Diagnosis: Syncope Tachy-Sherry Syndrome s/p pacemaker insertion Compensated Diastolic CHF Bifascicular Block Medication Reconciliation New Medications: Metoprolol Tartrate (Metoprolol Tartrate) 100 Mg Tab 100 MG PO BID for 30 Days, #60 TAB Continued Medications: Albuterol (Ventolin Hfa) 60 Puffs/5400 Mcg Aers 2 PUFFS INH QID PRN for SOB/Wheezing Allopurinol (Zyloprim) 300 Mg Tab 300 MG PO DAILY, TAB Aspirin (Aspirin Ec) 81 Mg Tab 81 MG PO DAILY Atorvastatin (Lipitor) 20 Mg Tab 0.5 TAB PO DAILY, TAB Budesonide/Formoterol Fumarate (Symbicort 160/4.5 Inhaler ) Aero 2 PUFFS INH BID, INHALER Cholecalciferol (Vitamin D3) 2,000 Unit Tab 1 TAB PO DAILY for 90 Days, #90 TAB 3 Refills Colchicine (Colchicine) 0.6 Mg Tab 0.6 MG PO DAILY, TAB Digoxin (Digoxin) 0.125 Mg Tab 0.125 MG PO QPM AFTER 6PM, PER PATIENT'S LIST. Duloxetine HCl (Cymbalta) 20 Mg Cap 1 CAP PO DAILY for 30 Days, #30 CAP Furosemide (Lasix) 80 Mg Tab 80 MG PO BID, TAB Insulin Regular. (Humulin R U-500 (Concentr) 10,000 Units/Vial Unit as directed via insulin pump Ketoconazole (Ketoconazole) 45 Appln/15 Gm Cr 1 APPLN EXT DAILY PRN for rash Levothyroxine Sodium (Synthroid) 50 Mcg Tab 50 MCG PO QAM, TAB Levothyroxine Sodium (Synthroid) 200 Mcg Tab 200 MCG PO QAM, TAB Lisinopril (Prinivil) 5 Mg Tab 2.5 MG PO QAM, TAB Metolazone (Zaroxolyn) 10 Mg Tab 10 MG PO WK Omeprazole (Prilosec) 20 Mg Capcr 20 MG PO QAM, CAP Spironolactone (Aldactone) 25 Mg Tab 0.5 TAB PO DAILY, TAB Warfarin Sod (Coumadin) 4 Mg Tab 4 MG PO 4XWK MON, WED, FRI, SAT Warfarin Sod (Jantoven) 4 Mg Tab 6 MG PO 3XWK 1 07/14 TAB ON* SUN, ES, THURS. 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 Pt follows with Dr. Jara for primary care and Jcarlos Haider PA-C for cardiology. Pt was in his usual state of health until while standing checking out at the grocery store he became hot, sweaty, and lightheaded, then lost consciousness. He was told by witnesses he hit his head and was unconscious for 30-40 seconds. No reported seizure like activity, incontinence, or tongue biting. When he awoke he quickly became reoriented. He is no longer feeling lightheaded. Near the end of my exam patient developed pain in RUQ non- radiating described as burning. He reports chronic intermittent BLLE edema- today possibly worse than usual. He admits to erythema of RLE- family states this is unchanged from baseline. He has scratched/ excoriated his right medial ankle. He reports chronic pain of bilateral feet attributed to neuropathy. family states blood sugar was in 90s this morning whereas usually runs around 200. Denies headache, speech or swallowing difficulty, focal weakness or numbness, fevers, chills, recent URI or cough, SOB, WHITE, orthopnea, chest pain, palpitations, decreased PO intake, N/V/D, urinary change, abnormal bleeding. Pt denies prior syncopal episode. It was reported that patient was bradycardic to 40s prior to arrival. Patient has been in AF with rate 60's-100's in ER. Denies known hx of bradycardia. He took his usual am meds today. No recent med changes. Physical Exam (per Admitting): General Appearance: WD/WN, no apparent distress Head: normocephalic, atraumatic Eyes: normal inspection, PERRL, EOMI ENT: hearing grossly normal, TMs normal, pharynx normal Neck: supple, trachea midline, + pertinent finding (neck is thick ) Respiratory/Chest: lungs clear, normal breath sounds, no respiratory distress Cardiovascular: no murmur, + irregularly irregular (rate 90s) Abdomen/GI: normal bowel sounds, soft, + pertinent finding (nontender on initial exam. difficult to examine on repeat exam after developed abdominal pain as patient moved to chair due to back discomfort on the ER litter) Extremities/Musculoskelatal: no calf tenderness, normal capillary refill, + pertinent finding (1+ ankle edema bilateral ) Neurologic/Psych: digital asset coordinator II-XII nml as tested, no motor/sensory deficits, alert , normal mood/affect, oriented x 3 Skin: warm/dry, + pertinent finding (RLE > LLE lower leg/ ankle erythema- unchanged from baseline per family. lower legs are dry and scaly. right medial ankle with small superficial area of abrasion) Hospital Course This is a 66 year old male with PMH of morbid obesity, atrial fibrillation on Coumadin, hx. of ischemic cardiomyopathy, insulin dependent DM2, bifascicular block, HTN, HLD, COPD and interstitial lung disease, hx. of multiple PEs, SALAS on CPAP presents s/p syncopal episode Syncope and Fall 09/26 doing well today Metoprolol dose increased digoxin restarted outpatient pacer check on October 02 Outpatient PCP follow-up on October 01 - Coumadin clinic on October 0109/25 patient is doing well today started on metoprolol, permanent pacemaker put in yesterday off of digoxin, off of Tikosyn Coumadin restarted d/c pending for tomorrow - insulin pump to be brought in tomorrow 09/24 appreciate cardiology input PPM placed this morning as per clinical specialist medical device - appreciated monitor on tele will likely need medical management to prevent tachycardia 09/23 patient presented with syncope and fall multiple cardiac issues going on on tele, 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 appreciate cardiology input will consult EP for possible pacemaker insertion in AM (09/24) at this point, holding digoxin, holding Coumadin continue Tikasyn BID as per cardio Diastolic CHF this is a chronic issue echo obtained from this admission shows a normal EF type 2 diastolic dysfunction continue diuretics HTN blood pressure is stable continue lisinopril and metoprolol may need to decrease metoprolol Insulin Dependent DM2 on an insulin pump at home off of pump here, started on basal-bolus regimen glycemic control consult placed COPD On chronic nocturnal O2 Not in acute exacerbation Continue home inhalers SALAS Continue CPAP Hypothyroid TSH slightly low will keep current dose for now to avoid any change in HRs HLD Continue statin Venous Stasis Dermatitis wound care consult placed DVT ppx Coumadin FULL CODE Total time spent on discharge = 45 minutes This includes examination of the patient, discharge planning, medication reconciliation, and communication with other providers. Discharge Instructions Please follow-up with Dr. Jara on October 01 @ 8:30AM Your dose of Metoprolol is increased to 100mg twice a day Continue taking digoxin Stop taking Tikosyn You should follow up with the Coumadin clinic on October 01 as well You will have a pacemaker check on October 02
[2016-09-26] MEDS ORDERED: DIGOXIN 0.125 MG TAB PO SCH (16:00)
[2016-09-26] MEDS ORDERED: METOPROLOL TARTRATE 100 MG TAB PO SCH (21:00)
[2016-09-28] MEDS ORDERED: METOLAZONE 5 MG TAB PO SCH (09:00)
[2016-11-14] MEDS ORDERED: METO1TAB69 PO (07:54)
[2016-11-18] MEDS ORDERED: AMOX500C3 PO (07:54)
[2016-12-09] MEDS ORDERED: DOXY100C76 PO (07:29)
== END 2016-09-26 14:15 | disposition home or self-care (01) | DRG 243 ==
LOC: ENRESERVTM → ENRESERVDT → C.EDB 13:34 → C.2E 16:00 → EDBEDREQ 16:08 → OBSVTOIN 09-24 14:56
PROVIDERS: ADMIT Hospitalist; ATTEND Family Medicine
PROC: 0JH606Z Insertion of Pacemaker, Dual Chamber into Chest Subcutaneous Tissue and Fascia, Open Approach (ICD-10-PCS; principal; 2016-09-24 12:00)
PROC: 02HK3JZ Insertion of Pacemaker Lead into Right Ventricle, Percutaneous Approach (ICD-10-PCS; principal; 2016-09-24 12:00)
PROC: 02H63JZ Insertion of Pacemaker Lead into Right Atrium, Percutaneous Approach (ICD-10-PCS; principal; 2016-09-24 12:00)
DX: I49.5 Sick sinus syndrome (principal); I50.32 Chronic diastolic (congestive) heart failure; K81.0 Acute cholecystitis; Z68.43 Body mass index [BMI] 50.0-59.9, adult; I45.10 Unspecified right bundle-branch block; E03.8 Other specified hypothyroidism; R00.0 Tachycardia, unspecified; I43 Cardiomyopathy in diseases classified elsewhere; E11.22 Type 2 diabetes mellitus with diabetic chronic kidney disease; N18.3 Chronic kidney disease, stage 3 (moderate); I12.9 Hypertensive chronic kidney disease with stage 1 through stage 4 chronic kidney disease, or unspecified chronic kidney disease; Z79.899 Other long term (current) drug therapy; Z79.01 Long term (current) use of anticoagulants; G47.33 Obstructive sleep apnea (adult) (pediatric); E11.40 Type 2 diabetes mellitus with diabetic neuropathy, unspecified; L50.9 Urticaria, unspecified; J44.9 Chronic obstructive pulmonary disease, unspecified; E78.5 Hyperlipidemia, unspecified; K21.9 Gastro-esophageal reflux disease without esophagitis; E66.01 Morbid (severe) obesity due to excess calories; Z79.82 Long term (current) use of aspirin; I48.0 Paroxysmal atrial fibrillation; Z87.442 Personal history of urinary calculi; Z86.711 Personal history of pulmonary embolism; I87.2 Venous insufficiency (chronic) (peripheral); Z96.41 Presence of insulin pump (external) (internal); Z79.4 Long term (current) use of insulin; Z86.14 Personal history of Methicillin resistant Staphylococcus aureus infection; S90.511A Abrasion, right ankle, initial encounter; W19.XXXA Unspecified fall, initial encounter; Y92.512 Supermarket, store or market as the place of occurrence of the external cause

== ENCOUNTER 2016-10-27 12:53 | Emergency (ER) | payer OTHER ==
[~2016-10-27] VITALS: Ht 175.3 cm; Wt 146.7 kg
[~2016-10-27 12:53] MED LIST changes: -CLR10 PO; +COLC0.6T54 PO; -DOFE250C PO; +LPR100 PO; -METO50TA16 PO; +NZRCR EXT; +PRVHFAIN INH; +SYMIN160 INH; +[UNRECOGNIZED DRUG - CODE]; -[UNRECOGNIZED DRUG - OTHER]
[2016-10-27 12:56] VITALS: TEMP 36.5; Ht 175.3 cm; Wt 146.7 kg
[2016-10-27 13:51] LABS: BASO % 0.4 %; BASO ABS # 0.03 K/uL (0-0.2); COMPLETE YES; EOS % 1.5 %; IG% 0.4 %; LYMPH % 22.3 %; LYMPH ABS # 1.66 K/uL (1.2-3.4); MEAN CELL VOLUME 91.1 fL (80-100); MEAN CORPUSCULAR HEMOGLOBIN 29.7 pg (25-34); MEAN CORPUSCULAR HGB CONC 32.6 g/dl (32-36); MEAN PLATELET VOLUME 11.2 fL (7.4-10.4); MONO % 8.5 %; NEUT % 66.9 %; PLATELET COUNT 148 K/uL (130-400); RED BLOOD COUNT 4.61 M/uL (4.7-6.1); WHITE BLOOD COUNT 7.44 K/uL (4.8-10.8)
[2016-10-27 14:09] LABS: BUN/CREATININE RATIO 29.8 (10-20); CREATININE 1.4 mg/dl (0.60-1.40); POTASSIUM 3.9 mmol/L (3.5-5.1)
--- NOTE | 2016-10-27 14:17 | DIAGNOSTIC IMAGING REPORT ---
ADDENDUM Abdominal component of the study is negative. Electronically signed by: Jcarlos Petersen M.D. 10/27/2016 2:39 PM Dictated Date/Time: 10/27/2016 2:39 PM ORIGINAL REPORT ABDOMEN 2VIEW W/PA CHEST RTN CLINICAL HISTORY: abdominal pain/constipation pain COMPARISON STUDY: 09/25/2016 FINDINGS: Mild stable cardiomegaly. Unchanging pleural based density left upper lung laterally. A subtle increase in pulmonary vasculature. Permanent bipolar cardiac pacer. Diaphragms smooth. Calcifications are sharp. IMPRESSION: Mild cardia megaly. Mild congestive failure. Unchanging pleural based density left upper lung laterally Electronically signed by: Jcarlos Petersen M.D. 10/27/2016 2:15 PM Dictated Date/Time: 10/27/2016 2:14 PM
[2016-10-27] MEDS ORDERED: OPTIRAY 320 IV PRN (14:30)
[2016-10-27] MEDS ORDERED: SOAP SUDS ENEMA PR STA (15:13)
--- NOTE | 2016-10-27 15:18 | EMERGENCY ROOM VISIT NOTE ---
ED Visit Note First contact with patient: 13:02 66-year-old male with abdominal pain was fully evaluated by Katie lehman PA-C. Please see her note. I also independently evaluated the patient. The patient moved his bowels while here.
--- NOTE | 2016-10-27 15:19 | DIAGNOSTIC IMAGING REPORT ---
ABDOMEN AND PELVIS CT WITH IV CONTRAST CT DOSE: 1769.33 mGy.cm HISTORY: erythema at multiple insulin pump sites TECHNIQUE: Multiaxial CT images of the abdomen and pelvis were performed following the use of intravenous contrast. COMPARISON STUDY: Abdomen and pelvis CT 07/28/2013. FINDINGS: A stable benign 4 mm nodule within the left lower lobe on image 15. No pneumoperitoneum. No pneumatosis. No suspicious lytic or blastic osseous lesions. Old, healed right-sided rib fractures. The heart remains mildly enlarged. Pacemaker wires are noted. Mild subcarinal and right hilar lymphadenopathy is partially visualized but remain stable. Small scattered areas of subcutaneous fat stranding and mild skin thickening within the anterior abdominal wall. This suggests a mild cellulitis related to medication injection. No loculated fluid collections to suggest an abscess. Postsurgical changes at the umbilicus. Of note, the lateral abdominal loco are not included on this study due to the patient's large body habitus. The liver, pancreas, spleen, and adrenal glands are unremarkable. No hydronephrosis. There is a punctate stone within the left kidney. A few prominent periportal lymph nodes remain stable. The gallbladder is surgically absent. However, there is a small round hypodense lesion remaining at the gallbladder fossa which measures 2.7 cm. This could represent a small seroma or a small portion of the residual gallbladder. No bowel wall thickening or obstruction. Normal appendix. Moderate stool within the colon. The bladder is unremarkable. IMPRESSION: 1. Small scattered areas of subcutaneous fat stranding and mild skin thickening within the anterior abdominal wall. This suggests a mild cellulitis related to medication injection. No loculated fluid collections to suggest an abscess. 2. Stable mild subcarinal and right hilar lymphadenopathy. The long-term stability favors a benign process. 3. Status post cholecystectomy. There is a 2.7 cm hypodense lesion remaining at the gallbladder fossa. This could represent a small seroma or small portion of the residual gallbladder. 4. Moderate stool within the colon. 5. Mild cardiomegaly, unchanged. Electronically signed by: Stan Lopez M.D. 10/27/2016 3:18 PM Dictated Date/Time: 10/27/2016 3:05 PM
[2016-10-27] MEDS ORDERED: CLIN300C10 PO (15:29)
--- NOTE | 2016-10-27 15:30 | EMERGENCY ROOM VISIT NOTE ---
History First contact with patient: 13:02 Chief Complaint: GI ASSESSMENT Stated Complaint: BOWEL PROBLEMS Nursing Triage Summary: constipated 3 days, last night drank a quart of prune juice and miralax. vomit x 1 today. has had this before. History of Present Illness The patient is a 66 year old male who presents to the Emergency Room with complaints of constipation. The patient states that he has not had a bowel movement in 3 days. The patient admits to generalized abdominal pain. The patient admits to nausea and vomiting after taking 3 stool softeners at 10 AM this morning. The patient has been drinking juice with a capfull of MiraLAX last evening and this morning without any results. He then took the 3 stool softeners at 10 AM. The patient has not had a bowel movement. The patient states he has had similar symptoms in the past when he was constipated. The patient is diabetic. He denies any fever, dizziness. Review of Systems 10 system review was performed and was negative unless stated otherwise history of present illness. Past Medical/Surgical History Medical Problems: (1) A-fib (2) Atrial fibrillation (3) Benign hypertension (4) Chest pain (5) Chronic obstructive lung disease (6) DIAB EDYTA WO COMPL, TYPE II OR UNSPEC TYPE, NOT UNCNTRLD (7) Diabetic neuropathy (8) Diastolic dysfunction (9) Dyslipidemia (10) Gastroesophageal reflux disease (11) History of calculus of kidney (12) Hypothyroidism (13) Interstitial fibrosis (14) Morbid obesity (15) Nocturnal hypoxemia (16) Obstructive sleep apnea syndrome (17) RUQ abdominal pain (18) s/p arthroscopic knee surgery (19) s/p lithotripsy (20) s/p repair umbilical hernia (21) Syncope (22) Tachycardia induced cardiomyopathy Surgical Problems: (1) H/O cardiac radiofrequency ablation (2) S/P cholecystectomy (3) S/p thoracoscopy Family History Hypertension Social History Smoking Status: Never Smoker Alcohol Use: none Drug Use: none Marital Status: Housing Status: lives alone Occupation Status: retired Current/Historical Medications Scheduled Allopurinol (Zyloprim), 300 MG PO DAILY Aspirin (Aspirin Ec), 81 MG PO DAILY Atorvastatin (Lipitor), 0.5 TAB PO DAILY Budesonide/Formoterol Fumarate (Symbicort 160/4.5 Inhaler ), 2 PUFFS INH BID Cholecalciferol (Vitamin D3), 1 TAB PO DAILY Colchicine (Colchicine), 0.6 MG PO DAILY Digoxin (Digoxin), 0.125 MG PO QPM Duloxetine HCl (Cymbalta), 1 CAP PO DAILY Furosemide (Lasix), 80 MG PO BID Levothyroxine Sodium (Synthroid), 25 MCG PO QAM Levothyroxine Sodium (Synthroid), 200 MCG PO QAM Lisinopril (Prinivil), 2.5 MG PO QAM Metolazone (Zaroxolyn), 10 MG PO WK Metoprolol Tartrate (Metoprolol Tartrate), 100 MG PO BID Omeprazole (Prilosec), 20 MG PO QAM Spironolactone (Aldactone), 0.5 TAB PO DAILY Warfarin Sod (Coumadin), 4 MG PO 4XWK Warfarin Sod (Jantoven), 6 MG PO 3XWK Scheduled PRN Albuterol (Ventolin Hfa), 2 PUFFS INH QID PRN for SOB/Wheezing Ketoconazole (Ketoconazole), 1 APPLN EXT DAILY PRN for rash Miscellaneous Medications Insulin Regular. (Humulin R U-500 (Concentr) Allergies Coded Allergies: No Known Allergies (Verified , 10/27/16) Physical Exam Vital Signs Date Time Temp Pulse Resp B/P Pulse Ox O2 Delivery O2 Flow Rate FiO2 10/27/16 12:56 36.5 79 18 170/80 94 Room Air Physical Exam GENERAL: Morbidly obese 66-year-old white male appears in no acute distress. MENTAL STATUS: Alert and oriented 3. MOUTH: Mucosa is moist NECK: Supple, no lymphadenopathy noted. No carotid bruits noted. LUNGS: Clear auscultation without wheezes rales or rhonchi. CARDIAC: Regular rate and rhythm without murmur. Pulses is full and equal throughout. BACK: No CVA tenderness noted. ABDOMEN: Positive bowel sounds all 4 quadrants. Protuberant with generalized tenderness to palpation throughout. The patient has 3 areas of erythema surrounding prior insulin pump sites with increased temperature to touch. No purulent drainage noted. RECTAL: Large amount of stool in noted in the rectum. Medical Decision & Procedures ER Provider Diagnostic Interpretation: ADDENDUM Abdominal component of the study is negative. Electronically signed by: Jcarlos Petersen M.D. 10/27/2016 2:39 PM Dictated Date/Time: 10/27/2016 2:39 PM ORIGINAL REPORT ABDOMEN 2VIEW W/PA CHEST RTN CLINICAL HISTORY: abdominal pain/constipation pain COMPARISON STUDY: 09/25/2016 FINDINGS: Mild stable cardiomegaly. Unchanging pleural based density left upper lung laterally. A subtle increase in pulmonary vasculature. Permanent bipolar cardiac pacer. Diaphragms smooth. Calcifications are sharp. IMPRESSION: Mild cardia megaly. Mild congestive failure. Unchanging pleural based density left upper lung laterally Electronically signed by: Jcarlos Petersen M.D. 10/27/2016 2:15 PM Dictated Date/Time: 10/27/2016 2:14 PM ABDOMEN AND PELVIS CT WITH IV CONTRAST CT DOSE: 1769.33 mGy.cm HISTORY: erythema at multiple insulin pump sites TECHNIQUE: Multiaxial CT images of the abdomen and pelvis were performed following the use of intravenous contrast. COMPARISON STUDY: Abdomen and pelvis CT 07/28/2013. FINDINGS: A stable benign 4 mm nodule within the left lower lobe on image 15. No pneumoperitoneum. No pneumatosis. No suspicious lytic or blastic osseous lesions. Old, healed right-sided rib fractures. The heart remains mildly enlarged. Pacemaker wires are noted. Mild subcarinal and right hilar lymphadenopathy is partially visualized but remain stable. Small scattered areas of subcutaneous fat stranding and mild skin thickening within the anterior abdominal wall. This suggests a mild cellulitis related to medication injection. No loculated fluid collections to suggest an abscess. Postsurgical changes at the umbilicus. Of note, the lateral abdominal loco are not included on this study due to the patient's large body habitus. The liver, pancreas, spleen, and adrenal glands are unremarkable. No hydronephrosis. There is a punctate stone within the left kidney. A few prominent periportal lymph nodes remain stable. The gallbladder is surgically absent. However, there is a small round hypodense lesion remaining at the gallbladder fossa which measures 2.7 cm. This could represent a small seroma or a small portion of the residual gallbladder. No bowel wall thickening or obstruction. Normal appendix. Moderate stool within the colon. The bladder is unremarkable. IMPRESSION: 1. Small scattered areas of subcutaneous fat stranding and mild skin thickening within the anterior abdominal wall. This suggests a mild cellulitis related to medication injection. No loculated fluid collections to suggest an abscess. 2. Stable mild subcarinal and right hilar lymphadenopathy. The long-term stability favors a benign process. 3. Status post cholecystectomy. There is a 2.7 cm hypodense lesion remaining at the gallbladder fossa. This could represent a small seroma or small portion of the residual gallbladder. 4. Moderate stool within the colon. 5. Mild cardiomegaly, unchanged. Electronically signed by: Stan Lopez M.D. 10/27/2016 3:18 PM Dictated Date/Time: 10/27/2016 3:05 PM Laboratory Results 10/27/16 13:25 Red Blood Count 4.61, Mean Corpuscular Volume 91.1, Mean Corpuscular Hemoglobin 29.7, Mean Corpuscular Hemoglobin Concent 32.6, Mean Platelet Volume 11.2, Neutrophils (%) (Auto) 66.9, Lymphocytes (%) (Auto) 22.3, Monocytes (%) (Auto) 8.5, Eosinophils (%) (Auto) 1.5, Basophils (%) (Auto) 0.4, Neutrophils # (Auto) 4.98, Lymphocytes # (Auto) 1.66, Monocytes # (Auto) 0.63, Eosinophils # (Auto) 0.11, Basophils # (Auto) 0.03 10/27/16 13:25 Test 10/27/16 13:25 White Blood Count 7.44 K/uL (4.8-10.8) Red Blood Count 4.61 M/uL (4.7-6.1) Hemoglobin 13.7 g/dL (14.0-18.0) Hematocrit 42.0 % (42-52) Mean Corpuscular Volume 91.1 fL (80-100) Mean Corpuscular Hemoglobin 29.7 pg (25-34) Mean Corpuscular Hemoglobin Concent 32.6 g/dl (32-36) Platelet Count 148 K/uL (130-400) Mean Platelet Volume 11.2 fL (7.4-10.4) Neutrophils (%) (Auto) 66.9 % Lymphocytes (%) (Auto) 22.3 % Monocytes (%) (Auto) 8.5 % Eosinophils (%) (Auto) 1.5 % Basophils (%) (Auto) 0.4 % Neutrophils # (Auto) 4.98 K/uL (1.4-6.5) Lymphocytes # (Auto) 1.66 K/uL (1.2-3.4) Monocytes # (Auto) 0.63 K/uL (0.11-0.59) Eosinophils # (Auto) 0.11 K/uL (0-0.5) Basophils # (Auto) 0.03 K/uL (0-0.2) RDW Standard Deviation 46.0 fL (36.4-46.3) RDW Coefficient of Variation 13.9 % (11.5-14.5) Immature Granulocyte % (Auto) 0.4 % Immature Granulocyte # (Auto) 0.03 K/uL (0.00-0.02) Anion Gap 10.0 mmol/L (3-11) Est Creatinine Clear Calc Drug Dose 76.2 ml/min Estimated GFR () 61.1 Estimated GFR (Non- 52.7 BUN/Creatinine Ratio 29.8 (10-20) Calcium Level 9.0 mg/dl (8.5-10.1) Total Bilirubin 1.2 mg/dl (0.2-1) Direct Bilirubin 0.2 mg/dl (0-0.2) Aspartate Amino Transf (AST/SGOT) 32 U/L (15-37) Alanine Aminotransferase (ALT/SGPT) 38 U/L (12-78) Alkaline Phosphatase 68 U/L (45-117) Total Protein 7.4 gm/dl (6.4-8.2) Albumin 3.5 gm/dl (3.4-5.0) Lipase 157 U/L (73-393) ED Course The patient was evaluated. IV access was obtained. CBC and differential, renal profile, LFTs and lipase levels were ordered. Abdominal series x-ray was ordered and interpreted by the radiologist and myself as above without any acute findings. Labs are reviewed. The patient's white count was normal. The patient's glucose is elevated at 240. BUN and creatinine were also elevated. The patient's EMR was reviewed. The patient has had MRSA an abdominal wall abscesses in the past. A CT with IV contrast only was ordered of the abdomen and pelvis interpreted by the radiologist as above with findings of mild cellulitis of the soft tissue of the abdomen. No abscesses were noted. The patient when he returned from CAT scan had a large bowel movement. The patient states he felt much better. The patient was independently evaluated by Dr. Sanford who agree with treatment plan. The patient was given clindamycin 300 mg by mouth while in the emergency room. The patient was discharged home in stable condition. Medical Decision Differential diagnosis include constipation, fecal impaction, small bowel obstruction Differential diagnosis for skin include cellulitis, abdominal wall abscess, rash Impression Primary Impression: Constipation Additional Impression: Cellulitis, abdominal wall Departure Information Dispostion Home / Self-Care Condition GOOD Prescriptions Clindamycin Hcl (CLINDAMYCIN HCL) 300 Mg Cap 1 TAB PO TID for 10 Days, #30 Prov: Machelle Petersen PA-C 10/27/16 Referrals Scotty Jara D.OAundrea (PCP) Forms HOME CARE DOCUMENTATION FORM, IMPORTANT VISIT INFORMATION Patient Instructions Cellulitis - [facility], Constipation, [facility] Additional Instructions Take clindamycin as prescribed. Recommend high-fiber diet. Also recommend MiraLAX 1 cap daily for 7 days. Follow up with your family doctor for reevaluation in 2 days. Problem Qualifiers Primary Impression: Constipation Constipation type: unspecified constipation type Qualified Codes: K59.00 - Constipation, unspecified
[2016-10-27] MEDS ORDERED: CLINDAMYCIN HCL 150 MG CAP PO STA (15:31)
[2016-10-27 15:35] VITALS: BP 115/90; PULSE 65; O2SAT 93
[2016-11-14] MEDS ORDERED: METO100T44 PO (07:54)
[2016-11-18] MEDS ORDERED: AMOX500C3 PO (07:54)
[2016-12-09] MEDS ORDERED: DOXY100C76 PO (07:29)
[2017-03-22] MEDS ORDERED: LVQ750 PO (11:56)
[2017-03-22] MEDS ORDERED: PRD20 PO (11:56)
== END 2016-10-27 15:46 | disposition home or self-care (01) ==
LOC: C.EDB 12:55
DX: K59.00 Constipation, unspecified (principal); L03.311 Cellulitis of abdominal wall; I48.91 Unspecified atrial fibrillation; I10 Essential (primary) hypertension; E11.40 Type 2 diabetes mellitus with diabetic neuropathy, unspecified; E78.5 Hyperlipidemia, unspecified; E03.9 Hypothyroidism, unspecified; K21.9 Gastro-esophageal reflux disease without esophagitis; G47.33 Obstructive sleep apnea (adult) (pediatric); J44.9 Chronic obstructive pulmonary disease, unspecified; Z87.442 Personal history of urinary calculi; Z98.890 Other specified postprocedural states; Z90.49 Acquired absence of other specified parts of digestive tract; Z79.82 Long term (current) use of aspirin; Z79.01 Long term (current) use of anticoagulants; Z79.84 Long term (current) use of oral hypoglycemic drugs; Z82.49 Family history of ischemic heart disease and other diseases of the circulatory system

== ENCOUNTER → 2016-12-29 | Outpatient (CLI) | payer OTHER ==
[~2016-12-29] MED LIST changes: +ALBINS INH; +BCTCR TOP; +CLOTCRE33 TOP; +FLUT0.15; +FLUT1INH7 INH; -LPR100 PO; +LVQ750 PO; +METO100T14 PO; +METO100T44 PO; +METO50TA16 PO; +OXGN; +PRD20 PO; +PRED20TA PO; +SENN-63 PO; +SYN25 PO; +ZRX25 PO
--- NOTE | 2016-12-29 09:37 | DIAGNOSTIC IMAGING REPORT ---
CHEST 2 VIEWS ROUTINE CLINICAL HISTORY: R13.10 Dysphagia dysphagia COMPARISON STUDY: 10/27/2016 FINDINGS: Primary megaly. Prominent pulmonary interstitium and bronchovascular prominence. Bipolar cardiac pacemaker. IMPRESSION: Chronic pulmonary vascular congestion. No acute or superimposed process. Electronically signed by: Jcarlos Petersen M.D. 12/29/2016 9:35 AM Dictated Date/Time: 12/29/2016 9:35 AM
--- NOTE | 2016-12-29 09:51 | DIAGNOSTIC IMAGING REPORT ---
(BARIUM SWALLOW) ESOPHAGUS CLINICAL HISTORY: Dysphagia. COMPARISON STUDY: None. FLUOROSCOPY TIME: 0.7 minutes. 16 images submitted. FINDINGS: The patient swallowed barium without difficulty. Mild esophageal dysmotility. Esophagus is normal in course and caliber. No hiatus hernia. No gastroesophageal reflux. The patient only performed approximately 75% of the examination due to claustrophobia. Lateral view of the hypopharynx and the barium tablet were not performed. IMPRESSION: Mild esophageal dysmotility. Electronically signed by: Stan Lopez M.D. 12/29/2016 9:49 AM Dictated Date/Time: 12/29/2016 9:47 AM
== END | disposition home or self-care (01) ==
LOC: C.RAD 08:37
PROVIDERS: ATTEND Physician Assistant
DX: R13.10 Dysphagia, unspecified (principal)

== ENCOUNTER → 2017-02-05 | Outpatient (CLI) | payer OTHER ==
[~2017-02-05] MED LIST changes: -METO100T44 PO; +METO1TAB69 PO
--- NOTE | 2017-02-05 11:24 | DIAGNOSTIC IMAGING REPORT ---
TWO VIEW CHEST CLINICAL HISTORY: Obstructive sleep apnea. FINDINGS: PA and lateral chest radiographs are compared to study dated 12/29/2016. Correlation is made with chest CT dated 09/29/2013. A 2-lead cardiac pacemaker is unchanged in position and partially obscures the left lateral chest. The heart is enlarged and there is atherosclerotic calcification of the thoracic aorta. The pulmonary vasculature is noncongested. Chronic interstitial thickening is unchanged, as is linear scarring in the right midlung. No airspace consolidation or pleural effusion is identified. There is no pneumothorax. The skeletal structures are osteopenic. The bony thorax appears intact. IMPRESSION: 1. Cardiomegaly and cardiac pacemaker. There is no radiographic evidence of congestive failure. 2. No airspace consolidation or pleural effusion is identified. Electronically signed by: Anupam Gonzalez M.D. 02/05/2017 11:23 AM Dictated Date/Time: 02/05/2017 11:21 AM
== END | disposition home or self-care (01) ==
LOC: C.RADBBURG 11:01
PROVIDERS: ATTEND Physician Assistant
DX: G47.33 Obstructive sleep apnea (adult) (pediatric) (principal); I51.7 Cardiomegaly; Z95.0 Presence of cardiac pacemaker

== ENCOUNTER 2017-03-08 11:51 | Emergency (ER) | payer OTHER ==
[~2017-03-08] VITALS: Ht 175.3 cm; Wt 161.2 kg
[~2017-03-08 11:51] MED LIST changes: -ALBINS INH; -BCTCR TOP; -CLOTCRE33 TOP; -FLUT0.15; -FLUT1INH7 INH; -LVQ750 PO; -METO100T14 PO; -METO50TA16 PO; -OXGN; -PRD20 PO; -PRED20TA PO; -SENN-63 PO; -SYN25 PO; -ZRX25 PO
[2017-03-08 11:54] VITALS: TEMP 36.8; Ht 175.3 cm; Wt 161.2 kg
[2017-03-08] MEDS ORDERED: ALBUT/IPRATROP 3MG/0.5MG NEB 3 ML VIAL INH STA (12:14)
[2017-03-08 12:23] LABS: BASO % 0.4 %; BASO ABS # 0.02 K/uL (0-0.2); COMPLETE YES; EOS % 2.1 %; HEMATOCRIT 44.7 % (42-52); IG% 0.5 %; LYMPH % 20.3 %; LYMPH ABS # 1.15 K/uL (1.2-3.4); MEAN CORPUSCULAR HEMOGLOBIN 31.8 pg (25-34); MEAN CORPUSCULAR HGB CONC 34.9 g/dl (32-36); MEAN PLATELET VOLUME 11.3 fL (7.4-10.4); MONO % 11.1 %; NEUT % 65.6 %; PLATELET COUNT 121 K/uL (130-400); RED BLOOD COUNT 4.91 M/uL (4.7-6.1); WHITE BLOOD COUNT 5.66 K/uL (4.8-10.8)
[2017-03-08 12:26] VITALS: O2SAT 95
[2017-03-08 12:40] LABS: ALT/SGPT 39 U/L (12-78); AST/SGOT 31 U/L (15-37); BLOOD UREA NITROGEN 24 mg/dl (7-18); BUN/CREATININE RATIO 18.1 (10-20); CALCIUM 9.1 mg/dl (8.5-10.1); CARBON DIOXIDE 31 mmol/L (21-32); CHLORIDE 99 mmol/L (98-107); GLUCOSE 140 mg/dl (70-99); POTASSIUM 4.5 mmol/L (3.5-5.1); SODIUM 136 mmol/L (136-145)
[2017-03-08 12:45] LABS: ALB/GLOB RATIO 0.9 (0.9-2); ALKALINE PHOSPHATASE 83 U/L (45-117); CKMB/CK RATIO 2.5 (0-3.0)
--- NOTE | 2017-03-08 12:48 | DIAGNOSTIC IMAGING REPORT ---
CHEST ONE VIEW PORTABLE HISTORY: 66 years-old Male EVALUATE RESPIRATORY DISTRESS.DYSPNEA COMPARISON: Chest radiograph 02/05/2017 TECHNIQUE: Portable upright AP view of the chest FINDINGS: Cardiac silhouette is upper limits of normal. There is mild pulmonary vascular congestion. Left pectoral pacer is noted with leads intact. No pneumothorax or pleural effusion. Subsegmental linear opacity of the lateral right midlung is unchanged suggesting scarring. The bones are grossly intact. IMPRESSION: 1. No acute cardiopulmonary process. 2. Mild cardiomegaly with pulmonary vascular congestion. The above report was generated using voice recognition software. It may contain grammatical, syntax or spelling errors. Electronically signed by: Pk Menchaca M.D. 03/08/2017 12:47 PM Dictated Date/Time: 03/08/2017 12:46 PM
[2017-03-08] MEDS ORDERED: SENN-63 PO (13:22)
[2017-03-08] MEDS ORDERED: BCTCR TOP (13:22)
[2017-03-08] MEDS ORDERED: SYN25 PO (13:22)
[2017-03-08] MEDS ORDERED: ZRX25 PO (13:22)
[2017-03-08] MEDS ORDERED: METO50TA16 PO (13:22)
[2017-03-08] MEDS ORDERED: METO100T14 PO (13:22)
[2017-03-08] MEDS ORDERED: PRED20TA PO (14:09)
[2017-03-08] MEDS ORDERED: ALBUTEROL HFA 8 GM INHALER INH ONE (14:15)
[2017-03-08 14:41] VITALS: BP 150/72; PULSE 60; O2SAT 93
--- NOTE | 2017-03-08 17:08 | EMERGENCY ROOM VISIT NOTE ---
History Report prepared by Lalo: Ar Gregory Under the Supervision of: Dr. Janes Evans M.D. First contact with patient: 12:09 Chief Complaint: SHORTNESS OF BREATH Stated Complaint: SOB, CHEST TIGHTNESS Nursing Triage Summary: Short of breath, cough productive of yellow/dozier mucus per pt. History of Present Illness The patient is a 66 year old male who presents to the Emergency Room with complaints of shortness of breath that started yesterday. He rates his discomfort as a 6/10 in severity. The patient states that he has also been experiencing a productive cough, sore throat, and and itching sensation in his throat. He reports that his right leg has been more swollen than the left but this is chronic. He is reports he has been wearing an inner boot and taking fluid pills for this symptom. He admits to a history of pneumonia and sarcoidosis. The patient states that he has a pacemaker. He reports that whenever he starts to experience a cold, he normally has to be hospitalized. He reports that his PCP is Dr. Jara. The patient denies using an inhaler, a history of smoking, chest pain, fevers, chills, nausea, vomiting, diarrhea, abdominal pain, constipation, neck pain, and back pain. Source of History: patient Onset: yesterday Position: other (global) Symptom Intensity: 6/10 Timing: constant Associated Symptoms: + sorethroat, + cough Review of Systems See HPI for pertinent positives and negatives. A total of ten systems were reviewed and were otherwise negative. Past Medical & Surgical Medical Problems: (1) A-fib (2) Atrial fibrillation (3) Benign hypertension (4) Chest pain (5) Chronic obstructive lung disease (6) DIAB EDYTA WO COMPL, TYPE II OR UNSPEC TYPE, NOT UNCNTRLD (7) Diabetes mellitus, type 2 (8) Diabetic neuropathy (9) Diabetic peripheral neuropathy associated with type 2 diabetes mellitus (10) Diastolic dysfunction (11) Dysesthesia (12) Dyslipidemia (13) Foot pain (14) Gastroesophageal reflux disease (15) History of calculus of kidney (16) Hypothyroidism (17) Interstitial fibrosis (18) Loss of sensation (19) Morbid obesity (20) Nocturnal hypoxemia (21) Obstructive sleep apnea syndrome (22) RUQ abdominal pain (23) s/p arthroscopic knee surgery (24) s/p lithotripsy (25) s/p repair umbilical hernia (26) Syncope (27) Tachycardia induced cardiomyopathy Surgical Problems: (1) H/O cardiac radiofrequency ablation (2) S/P cholecystectomy (3) S/p thoracoscopy Family History Hypertension Social History Smoking Status: Never Smoker Alcohol Use: none Drug Use: none Marital Status: Housing Status: lives alone Occupation Status: retired Current/Historical Medications Scheduled Allopurinol (Zyloprim), 300 MG PO DAILY Aspirin (Aspirin Ec), 81 MG PO DAILY Atorvastatin (Lipitor), 10 MG PO HS Cholecalciferol (Vitamin D3), 2,000 UNITS PO QAM Colchicine (Colchicine), 0.6 MG PO DAILY Digoxin (Digoxin), 0.125 MG PO QPM Duloxetine HCl (Cymbalta), 20 MG PO QAM Furosemide (Lasix), 80 MG PO BID Levothyroxine Sodium (Synthroid), 200 MCG PO QAM Levothyroxine Sodium (Synthroid), 25 MCG PO QAM Lisinopril (Prinivil), 2.5 MG PO QAM Metolazone (Metolazone), 2.5 MG PO SUNDAYS Metoprolol Tartrate (Lopressor) (Lopressor), 100 MG PO BID Metoprolol Tartrate (Lopressor) (Lopressor), 50 MG PO QAM Omeprazole (Prilosec), 20 MG PO QAM Prednisone (Prednisone), 40 MG PO DAILY Sennosides (Senokot), 8.6 MG PO BID Spironolactone (Aldactone), 12.5 MG PO QAM Warfarin Sod (Coumadin), 4 MG PO 4XWK Warfarin Sod (Jantoven), 6 MG PO 3XWK Scheduled PRN Albuterol (Ventolin Hfa), 2 PUFFS INH QID PRN for SOB/Wheezing Budesonide/Formoterol Fumarate (Symbicort 160/4.5 Inhaler ), 2 PUFFS INH Q4 PRN for Ketoconazole (Ketoconazole), 1 APPLN EXT DAILY PRN for rash Mupirocin (Bactroban), 1 APPLN TOP for Miscellaneous Medications Insulin Regular. (Humulin R U-500 (Concentr) Allergies Coded Allergies: No Known Allergies (Verified , 03/08/17) Physical Exam Vital Signs Date Time Temp Pulse Resp B/P (MAP) Pulse Ox O2 Delivery O2 Flow Rate FiO2 8/27/17 14:41 60 22 150/72 93 03/08/17 13:21 65 22 139/74 93 Room Air 03/08/17 12:35 61 03/08/17 12:26 95 Room Air 03/08/17 11:56 93 Room Air 03/08/17 11:54 36.8 88 20 132/81 93 Room Air Physical Exam GENERAL: Awake, alert, dyspneic-appearing, in no distress HENT: Normocephalic, atraumatic. Oropharynx unremarkable. EYES: Normal conjunctiva. Sclera non-icteric. NECK: Supple. No nuchal rigidity. FROM. No JVD. RESPIRATORY: Slightly diminished breath sounds bilaterally CARDIAC: Regular rate, normal rhythm. Extremities warm and well perfused. Pulses equal. ABDOMEN: Soft, non-distended. No tenderness to palpation. No rebound or guarding. No masses. RECTAL: Deferred. MUSCULOSKELETAL: Chest examination reveals no tenderness. The back is symmetrical on inspection without obvious abnormality. There is no CVA tenderness to palpation. No joint edema. LOWER EXTREMITIES: Calves are equal size bilaterally and non-tender. 1+ edema. No discoloration. NEURO: Normal sensorium. No sensory or motor deficits noted. SKIN: No rash or jaundice noted. Medical Decision & Procedures ER Provider Diagnostic Interpretation: X-ray: Per my interpretation, radiologist review. CHEST ONE VIEW PORTABLE HISTORY: 66 years-old Male EVALUATE RESPIRATORY DISTRESS.DYSPNEA COMPARISON: Chest radiograph 02/05/2017 TECHNIQUE: Portable upright AP view of the chest FINDINGS: Cardiac silhouette is upper limits of normal. There is mild pulmonary vascular congestion. Left pectoral pacer is noted with leads intact. No pneumothorax or pleural effusion. Subsegmental linear opacity of the lateral right midlung is unchanged suggesting scarring. The bones are grossly intact. IMPRESSION: 1. No acute cardiopulmonary process. 2. Mild cardiomegaly with pulmonary vascular congestion. The above report was generated using voice recognition software. It may contain grammatical, syntax or spelling errors. Electronically signed by: Pk Menchaca M.D. 03/08/2017 12:47 PM Dictated Date/Time: 03/08/2017 12:46 PM Laboratory Results 03/08/17 12:00 Red Blood Count 4.91, Mean Corpuscular Volume 91.0, Mean Corpuscular Hemoglobin 31.8, Mean Corpuscular Hemoglobin Concent 34.9, Mean Platelet Volume 11.3, Neutrophils (%) (Auto) 65.6, Lymphocytes (%) (Auto) 20.3, Monocytes (%) (Auto) 11.1, Eosinophils (%) (Auto) 2.1, Basophils (%) (Auto) 0.4, Neutrophils # (Auto ) 3.71, Lymphocytes # (Auto) 1.15, Monocytes # (Auto) 0.63, Eosinophils # (Auto ) 0.12, Basophils # (Auto) 0.02 03/08/17 12:00 Test 03/08/17 12:00 03/08/17 12:19 White Blood Count 5.66 K/uL (4.8-10.8) Red Blood Count 4.91 M/uL (4.7-6.1) Hemoglobin 15.6 g/dL (14.0-18.0) Hematocrit 44.7 % (42-52) Mean Corpuscular Volume 91.0 fL (80-100) Mean Corpuscular Hemoglobin 31.8 pg (25-34) Mean Corpuscular Hemoglobin Concent 34.9 g/dl (32-36) Platelet Count 121 K/uL (130-400) Mean Platelet Volume 11.3 fL (7.4-10.4) Neutrophils (%) (Auto) 65.6 % Lymphocytes (%) (Auto) 20.3 % Monocytes (%) (Auto) 11.1 % Eosinophils (%) (Auto) 2.1 % Basophils (%) (Auto) 0.4 % Neutrophils # (Auto) 3.71 K/uL (1.4-6.5) Lymphocytes # (Auto) 1.15 K/uL (1.2-3.4) Monocytes # (Auto) 0.63 K/uL (0.11-0.59) Eosinophils # (Auto) 0.12 K/uL (0-0.5) Basophils # (Auto) 0.02 K/uL (0-0.2) RDW Standard Deviation 47.3 fL (36.4-46.3) RDW Coefficient of Variation 14.2 % (11.5-14.5) Immature Granulocyte % (Auto) 0.5 % Immature Granulocyte # (Auto) 0.03 K/uL (0.00-0.02) Anion Gap 6.0 mmol/L (3-11) Est Creatinine Clear Calc Drug Dose 86.8 ml/min Estimated GFR () 66.8 Estimated GFR (Non- 57.7 BUN/Creatinine Ratio 18.1 (10-20) Calcium Level 9.1 mg/dl (8.5-10.1) Total Bilirubin 1.3 mg/dl (0.2-1) Aspartate Amino Transf (AST/SGOT) 31 U/L (15-37) Alanine Aminotransferase (ALT/SGPT) 39 U/L (12-78) Alkaline Phosphatase 83 U/L (45-117) Total Creatine Kinase 101 U/L (39-308) Creatine Kinase MB 2.5 ng/ml (0.5-3.6) Creatine Kinase MB Ratio 2.5 (0-3.0) Troponin I < 0.015 ng/ml (0-0.045) Total Protein 7.3 gm/dl (6.4-8.2) Albumin 3.4 gm/dl (3.4-5.0) Globulin 3.9 gm/dl (2.5-4.0) Albumin/Globulin Ratio 0.9 (0.9-2) Pro-B-Type Natriuretic Peptide 1445 pg/ml (0-900) Laboratory results reviewed by me Medications Administered Medications (Trade) Dose Ordered Sig/Shane Route Start Time Stop Time Status Last Admin Dose Admin Albuterol/ Ipratropium (Duoneb) 3 ml NOW STAT INH 03/08/17 12:14 03/08/17 12:16 DC 03/08/17 12:28 3 ML Prednisone (PredniSONE TAB) 60 mg NOW STAT PO 03/08/17 14:06 03/08/17 14:07 DC 03/08/17 14:30 60 MG Albuterol (Ventolin Hfa Inhaler) 2 puffs NOW ONCE INH 03/08/17 14:15 03/08/17 14:16 DC 03/08/17 14:30 2 PUFFS ECG Indication: SOB/dyspnea Rate (beats per minute): 61 Rhythm: other (paced) Findings: LAFB, RBBB, no acute ischemic change ED Course 1209: The patient was evaluated in room B12B. A complete history and physical exam was performed. 1214: Ordered Duoneb 3 ml INH. 1406: Ordered Prednisone 60 mg PO. 1415: Ordered Albuterol 2 puffs INH. 1425: I reevaluated the patient. Discussed results and discharge instructions: He verbalized understanding and agreement. The patient is ready for discharge. Medical Decision Triage Nursing notes reviewed. The patient's presentation and history were concerning for respiratory symptoms. Etiologies such as URI, viral syndrome, pneumonia, COPD, reactive airway disease , CHF, cardiac ischemia, pulmonary embolism, pneumothorax, musculoskeletal, infections, gastrointestinal, as well as others were entertained. The patient was evaluated. Clinically he was doing well. He had stable vitals. He had a chest x-ray performed and this was unremarkable. His blood work was unremarkable as well. Cardiac markers negative. He had a minimal elevation of his BNP. The patient is on multiple diuretics as well as anticoagulation. The patient's symptoms seem to be most consistent with a viral URI. He has no fever, leukocytosis, or infiltrate on chest x-ray. He was given a DuoNeb and felt significantly better with this. He notes having an inhaler at home but does not use it. I discussed conservative treatment with him with close outpatient follow-up. The patient was given a dose of prednisone as well as an albuterol MDI. I did chemical dependency counselor him on prednisone use and his blood sugar.I gave my usual and customary discussion regarding this issue. If he worsens in any way he will be back to the emergency department for reevaluation. By the evaluation outlined above other emergent etiologies such as those listed in the differential, as well as others, were deemed relatively unlikely. The patient was educated about the findings as listed above. All questions were answered and the patient was pleased with the treatment. Return instructions were outlined and the patient was discharged in stable condition. The patient was referred to his PCP in 1-2 days for follow-up for a recheck of the current condition. Medication Reconcilliation Current Medication List: was personally reviewed by me Blood Pressure Screening Patient's blood pressure: Elevated blood pressure Blood pressure disposition: Referred to PCP Impression Primary Impression: Cough Additional Impressions: Shortness of breath URI (upper respiratory infection) Scribe Attestation The scribe's documentation has been prepared under my direction and personally reviewed by me in its entirety. I confirm that the note above accurately reflects all work, treatment, procedures, and medical decision making performed by me. Departure Information Dispostion Home / Self-Care Prescriptions Prednisone (Prednisone) 20 Mg Tab 40 MG PO DAILY for 3 Days, #6 TAB Prov: Janes Evans MD 03/08/17 Referrals Scotty Jara D.O. (PCP) Forms HOME CARE DOCUMENTATION FORM, IMPORTANT VISIT INFORMATION Patient Instructions My [facility] Additional Instructions Albuterol Inhaler: Take 2 puffs four times daily for five days, then as needed. Prednisone 40mg: Once daily until the prescription is finished. It is best to take this earlier in the day as some patients note occasional difficulty falling asleep when taken in the late evening. Monitor your blood sugar carefully. Watch sugar intake and carbohydrate intake while taking prednisone as this will cause your blood sugar to increase. Acetaminophen(Tylenol) may be used for fever or pain. Use 1000mg every six hours as needed. Avoid using more than 4000mg in a 24 hour period. Rest and drink plenty of fluids. Avoid smoke/smoking, fumes, dust, or any triggers in the past that may have affected your breathing. Continue current medications. Return to the ER for chest pain, difficulty breathing, fevers, vomiting, worsening of your condition, or as needed. Follow up with your primary physician this week for a recheck of your current condition. Problem Qualifiers
[2017-03-22] MEDS ORDERED: PRD20 PO (11:56)
[2017-03-22] MEDS ORDERED: LVQ750 PO (11:56)
== END 2017-03-08 14:42 | disposition home or self-care (01) ==
LOC: C.EDB 11:52
DX: R05 Cough (principal); R06.02 Shortness of breath; J06.9 Acute upper respiratory infection, unspecified; I48.91 Unspecified atrial fibrillation; I10 Essential (primary) hypertension; J44.9 Chronic obstructive pulmonary disease, unspecified; E11.9 Type 2 diabetes mellitus without complications; E78.5 Hyperlipidemia, unspecified; K21.9 Gastro-esophageal reflux disease without esophagitis; E03.9 Hypothyroidism, unspecified; E66.01 Morbid (severe) obesity due to excess calories; R09.02 Hypoxemia; G47.33 Obstructive sleep apnea (adult) (pediatric); Z82.49 Family history of ischemic heart disease and other diseases of the circulatory system; Z79.82 Long term (current) use of aspirin; Z79.01 Long term (current) use of anticoagulants

== ENCOUNTER 2017-03-19 17:13 | Inpatient (IN) | payer OTHER ==
[~2017-03-19] VITALS: Ht 175.3 cm; Wt 159.2 kg
[~2017-03-19 17:13] MED LIST changes: +BCTCR TOP; -LEVO50TA PO; +METO100T14 PO; -METO10TA6 PO; -METO1TAB69 PO; +METO50TA16 PO; +SENN-63 PO; +SYN25 PO; +ZRX25 PO
[2017-03-19 18:25] VITALS: BP 143/81; PULSE 71; TEMP 37.8; O2SAT 92; BMI 51.9
[2017-03-19] MEDS ORDERED: ONDANSETRON INJ 2 MG/ML 2 ML VIAL IV PRN (18:45)
[2017-03-19] MEDS ORDERED: ACETAMINOPHEN 325 MG TAB PO PRN (18:45)
[2017-03-19 19:06] LABS: BASO % 0.4 %; BASO ABS # 0.03 K/uL (0-0.2); COMPLETE YES; EOS % 1.6 %; HEMATOCRIT 45.4 % (42-52); IG% 0.4 %; LYMPH % 19.5 %; LYMPH ABS # 1.35 K/uL (1.2-3.4); MEAN CELL VOLUME 92.7 fL (80-100); MEAN CORPUSCULAR HEMOGLOBIN 30.6 pg (25-34); MEAN PLATELET VOLUME 10.8 fL (7.4-10.4); MONO % 14.5 %; NEUT % 63.6 %; PLATELET COUNT 134 K/uL (130-400); WHITE BLOOD COUNT 6.92 K/uL (4.8-10.8)
[2017-03-19 19:16] LABS: INR 1.8 (0.9-1.1); PROTHROMBIN TIME (PATIENT) 19.7 SECONDS (9.0-12.0)
[2017-03-19 19:29] LABS: BUN/CREATININE RATIO 19.4 (10-20); CALCIUM 9.6 mg/dl (8.5-10.1); CREATININE 1.4 mg/dl (0.60-1.40); POTASSIUM 4.4 mmol/L (3.5-5.1)
[2017-03-19] MEDS ORDERED: PHARMACY GLYCEMIC MGMT CONSULT PRN (19:29)
[2017-03-19] MEDS ORDERED: MODERATE STRESS LEVEL ONE (19:30)
[2017-03-19] MEDS ORDERED: INSULIN PROTOCOL GOAL RANGE ONE (19:30)
[2017-03-19] MEDS ORDERED: FLUT0.15 (19:40)
[2017-03-19] MEDS ORDERED: CLOTCRE33 TOP (19:40)
[2017-03-19] MEDS ORDERED: FLUT1INH7 INH (19:40)
[2017-03-19] MEDS ORDERED: ALBINS INH (19:40)
[2017-03-19] MEDS ORDERED: SENNA 8.6 MG TAB PO PRN (19:45)
[2017-03-19] MEDS ORDERED: INSULIN IV INFUSION PROTOCOL SCH (19:45)
[2017-03-19] MEDS: METHYLPREDNISOLONE IV 60 MG in SYRINGE 0 ML IV SCH (19:46)
[2017-03-19 20:00] VITALS: O2SAT 92
[2017-03-19] MEDS ORDERED: GLUCOSE 10 TABS/TUBE PO PRN (20:15)
[2017-03-19] MEDS ORDERED: DEXTROSE 50% 50 ML SYR IV PRN (20:15)
[2017-03-19] MEDS ORDERED: GLUCAGON FOR INJ 1 MG VIAL SQ PRN (20:15)
[2017-03-19] MEDS ORDERED: GLUCOSE 40% GEL 15 GM TUBE PO PRN (20:15)
[2017-03-19] MEDS ORDERED: WARFARIN SOD 7.5 MG TAB PO ONE (20:30)
[2017-03-19] MEDS ORDERED: INSULIN HUMAN REGULAR IV BOLUS 4 UNIT in SYRINGE 0 ML IV SCH (20:30)
[2017-03-19] MEDS: INSULIN REGULAR 250 UNITS in SODIUM CHLORIDE 0.9% 250ML 250 ML IV SCH (20:39)
[2017-03-19] MEDS: ALBUT/IPRATROP 3MG/0.5MG NEB 3 ML VIAL INH SCH (20:47)
[2017-03-19 20:56] VITALS: PULSE 73; O2SAT 94
[2017-03-19] MEDS: INSULIN ASPART 100 UNITS/ML 3 ML PEN SC SCH (21:00)
--- NOTE | 2017-03-19 21:04 | DIAGNOSTIC IMAGING REPORT ---
CHEST ONE VIEW PORTABLE HISTORY: shortness of breath COMPARISON: Chest 03/08/2017. FINDINGS: No pneumothorax. No pleural effusions. The heart remains mildly enlarged. There is a left-sided dual-chamber pacemaker. Linear densities within the right midlung zone favor scarring or atelectasis. There is mild central pulmonary vascular congestion without overt edema. Interval development of left mid to lower lung zone airspace opacities. IMPRESSION: Interval development of left mid to lower lung zone airspace opacities. This likely represents a pneumonia. One month chest x-ray follow-up is recommended to ensure resolution. Electronically signed by: Stan Lopez M.D. 03/19/2017 9:03 PM Dictated Date/Time: 03/19/2017 9:01 PM
--- NOTE | 2017-03-19 21:24 | History and Physical ---
History & Physical Date & Time of Service: Mar 19, 2017 ~ 19:00 Chief Complaint: Shortness of Breath Primary Care Physician: Scotty Jara D.O. History of Present Illness 67 year old male who presents as a direct admission from the pulmonary office for shortness of breath. He was noted to be hypoxic in the 80s at the pulmonary office. Patient reports his shortness of breath started 5 days ago. It has been progressively getting worse. He reports a moist non productive cough. He denies fever and chills. No chest pain or palpations. Reports mild lightheadedness and dizziness with harsh coughing. Patient has been following at the wound center for a chronic right ankle wound. He had imaging preformed at Dr. Bell' office to see if he needs any intervention done. Wound is almost healed. He has chronic intermittent lower extremity edema which he reports is unchanged from baseline. He denies abdominal pain, nausea, vomiting, or diarrhea. No urinary symptoms. At the time of my exam, patient is resting in bed in no acute distress. Past Medical/Surgical History Medical Problems: (1) A-fib Status: Chronic (2) Atrial fibrillation Status: Chronic (3) Benign hypertension Status: Chronic (4) Chronic obstructive lung disease Status: Chronic (5) COPD, moderate Status: Chronic (6) Diabetes mellitus, type 2 Status: Chronic (7) Diabetic neuropathy Status: Chronic (8) Diastolic dysfunction Status: Chronic (9) Dyslipidemia Status: Chronic (10) Gastroesophageal reflux disease Status: Chronic (11) Gout Status: Chronic (12) History of calculus of kidney Status: Resolved (13) Hypothyroidism Status: Chronic (14) Interstitial fibrosis Status: Chronic (15) Morbid obesity Permanent Comment: BMI > 40 Status: Chronic (16) Nocturnal hypoxemia Status: Chronic (17) Obstructive sleep apnea syndrome Permanent Comment: on CPAP Status: Chronic (18) Pacemaker Status: Chronic (19) Pulmonary embolism Status: Chronic (20) s/p arthroscopic knee surgery Status: Resolved (21) s/p lithotripsy Status: Resolved (22) s/p repair umbilical hernia Status: Resolved (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 (24) Tachycardia induced cardiomyopathy Permanent Comment: prior EF of 25% while in aflutter, subsequently normal in NSR ; last EF 50-55% on echo 09/2015 Status: Chronic Surgical Problems: (1) H/O cardiac radiofrequency ablation Status: Chronic (2) S/P cholecystectomy Status: Chronic (3) S/p thoracoscopy Permanent Comment: right, VAT, wedge resection Status: Chronic Family History Hypertension Social History Smoking Status: Never Smoker Alcohol Use: none Immunizations History of Influenza Vaccine: Yes Influenza Vaccine Date: Mar 26, 2016 History of Tetanus Vaccine?: Yes (UTD) Tetanus Immunization Date: Jan 21, 2012 History of Pneumococcal: Yes Pneumococcal Date: Jan 22, 2011 Multi-Drug Resistant Organisms History of MDRO: Yes Type of MDRO: MRSA Allergies Coded Allergies: No Known Allergies (Verified , 04/01/17) Home Medications Scheduled Allopurinol (Zyloprim), 300 MG PO DAILY Aspirin (Aspirin Ec), 81 MG PO DAILY Atorvastatin (Lipitor), 10 MG PO HS Cholecalciferol (Vitamin D3), 2,000 UNITS PO QAM Colchicine (Colchicine), 0.6 MG PO DAILY Digoxin (Digoxin), 0.125 MG PO QPM Duloxetine HCl (Cymbalta), 20 MG PO QAM Fluticasone Furoate-Vilanterol (Breo Ellipta 200-25 Mcg/INH), 1 INHA INH DAILY Fluticasone Propionate (Nasal) (Flonase Allergy Relief), 2 SPRAYS NA DAILY Furosemide (Lasix), 80 MG PO DAILY Home O2 Therapy (Oxygen), 4 LITER NA HS Levothyroxine Sodium (Synthroid), 200 MCG PO QAM Levothyroxine Sodium (Synthroid), 25 MCG PO QAM Lisinopril (Prinivil), 2.5 MG PO QAM Metolazone (Metolazone), 2.5 MG PO SUNDAYS Metoprolol Tartrate (Lopressor) (Lopressor), 100 MG PO BID Metoprolol Tartrate (Lopressor) (Lopressor), 50 MG PO QAM Omeprazole (Prilosec), 20 MG PO QAM Spironolactone (Aldactone), 12.5 MG PO QAM Warfarin Sod (Coumadin), 4 MG PO 4XWK Warfarin Sod (Jantoven), 6 MG PO 3XWK Scheduled PRN Albuterol (Ventolin Hfa), 2 PUFFS INH QID PRN for SOB/Wheezing Albuterol Sulf (Albuterol Sulfate), 1 INHA INH Q4H PRN for SOB/Wheezing Clotrimazole W/ Betamethasone (Lotrisone), 1 APPLN TOP BID PRN for rash Ketoconazole (Ketoconazole), 1 APPLN EXT DAILY PRN for rash Mupirocin (Bactroban), 1 APPLN TOP for Sennosides (Senokot), 8.6 MG PO BID PRN for Constipation Miscellaneous Medications Insulin Regular. (Humulin R U-500 (Concentr) Review of Systems ROS per HPI, all other systems reviewed and negative Physical Exam Vital Signs Date Time Temp Pulse Resp B/P (MAP) Pulse Ox O2 Delivery O2 Flow Rate FiO2 03/19/17 20:56 73 16 94 Nasal Cannula 4.0 03/19/17 18:25 37.8 71 24 143/81 92 Nasal Cannula 4.0 General Appearance: no apparent distress Head: normocephalic, atraumatic Eyes: normal inspection, sclerae normal ENT: hearing grossly normal Neck: supple, no JVD Respiratory/Chest: no respiratory distress, + decreased breath sounds, + wheezing (scattered throughout all lung davis, inspiratory and expiratory), + pertinent finding (scattered coarse breath sounds) Cardiovascular: regular rate, rhythm, + pertinent finding (trace edema BLLE) Abdomen/GI: normal bowel sounds, non tender, soft Extremities/Musculoskelatal: normal inspection, no calf tenderness Neurologic/Psych: no motor/sensory deficits, alert, normal mood/affect, oriented x 3 Skin: + pertinent finding (excoriated axilla and abdominal folds; chronic venous changes noted to BLLE; small wound noted to the right lateral ankle - no drainage or surrounding erythema) Diagnostics Laboratory Results Results Past 24 Hours Test 03/19/17 18:51 03/19/17 19:18 Range/Units White Blood Count 6.92 4.8-10.8 K/uL Red Blood Count 4.90 4.7-6.1 M/uL Hemoglobin 15.0 14.0-18.0 g/dL Hematocrit 45.4 42-52 % Mean Corpuscular Volume 92.7 80-100 fL Mean Corpuscular Hemoglobin 30.6 25-34 pg Mean Corpuscular Hemoglobin Concent 33.0 32-36 g/dl Platelet Count 134 130-400 K/uL Mean Platelet Volume 10.8 7.4-10.4 fL Neutrophils (%) (Auto) 63.6 % Lymphocytes (%) (Auto) 19.5 % Monocytes (%) (Auto) 14.5 % Eosinophils (%) (Auto) 1.6 % Basophils (%) (Auto) 0.4 % Neutrophils # (Auto) 4.40 1.4-6.5 K/uL Lymphocytes # (Auto) 1.35 1.2-3.4 K/uL Monocytes # (Auto) 1.00 0.11-0.59 K/uL Eosinophils # (Auto) 0.11 0-0.5 K/uL Basophils # (Auto) 0.03 0-0.2 K/uL RDW Standard Deviation 47.5 36.4-46.3 fL RDW Coefficient of Variation 14.0 11.5-14.5 % Immature Granulocyte % (Auto) 0.4 % Immature Granulocyte # (Auto) 0.03 0.00-0.02 K/uL Prothrombin Time 19.7 9.0-12.0 SECONDS Prothromb Time International Ratio 1.8 0.9-1.1 Sodium Level 135 136-145 mmol/L Potassium Level 4.4 3.5-5.1 mmol/L Chloride Level 96 98-107 mmol/L Carbon Dioxide Level 36 21-32 mmol/L Anion Gap 3.0 3-11 mmol/L Blood Urea Nitrogen 27 7-18 mg/dl Creatinine 1.40 0.60-1.40 mg/dl Est Creatinine Clear Calc Drug Dose 79.0 ml/min Estimated GFR () 60.7 Estimated GFR (Non- 52.4 BUN/Creatinine Ratio 19.4 10-20 Random Glucose 176 70-99 mg/dl Calcium Level 9.6 8.5-10.1 mg/dl Bedside Glucose 162 70-99 mg/dl Diagnostic Radiology CXR IMPRESSION: Interval development of left mid to lower lung zone airspace opacities. This likely represents a pneumonia. One month chest x-ray follow-up is recommended to ensure resolution. Impression Assessment and Plan ACUTE HYPOXIC RESPIRATORY FAILURE DUE TO CAP / COPD EXACERBATION - directly admitted to tele from pulmonary office - patient presenting with increasing shortness of breath x 5 days; found to be hypoxic in the 80s at the pulmonary office - currently requiring 4L O2 - noted wears 2L at night only at home - CXR showing left basilar pneumonia - has low grade fever but no other signs to suggest sepsis - will start Levaquin - IV steroids, around the clock nebs - continue inhaled corticosteroid RLE WOUND - following with the wound center - wound care consult - patient also following with Dr. Bell regarding possible vascular intervention in the RLE DM - typically on insulin pump with U500 insulin but disconnected before coming to the hospital - due to patient's high insulin needs and expected higher need due to IV steroids, will start insulin gtt to manage blood sugars - hgb a1c 8.1 02/2017 ATRIAL FIBRILLATION, HX TACHYBRADY S/P PACEMAKER - currently in NSR - rate controlled on beta flo and dig - on Coumadin, INR 1.8 - will increase Coumadin tonight, check INR in the AM and dose accordingly DIASTOLIC DYSFUNCTION - appears euvolemic - continue furosemide, spironolactone, and metolazone HTN - BP controlled, continue lisinopril and metoprolol HYPOTHYROIDISM - check TSH - continue levothyroxine SALAS - continue CPAP as per home settings HLD - continue statin GOUT - continue allopurinol and colchicine DEPRESSION - continue duloxetine DVT PROPHYLAXIS - on Coumadin CODE STATUS - Patient is a full code as per my discussion with him. DISPO - In my clinical judgment this beneficiary meets acute admission criteria, established by [facility], that includes being hospitalized through two midnights. Attending addendum: Agree with the above H&P; please see above for more details. Patient was a direct admission from outpatient Pulmonary office; case was discussed with Emmanuel Sharma PA-C and the patient was direct admitted to our service for complaints of SOB/cough and low grade fevers that have been ongoing for the last week. Patient has also been hypoxic and requiring more oxygen than his usual amount at home. He denies any complaints of chest pain or palpitations. He has been using his outpatient medications and inhaled therapy as prescribed. Cardiac: RR, S1 and S2 auscultated Resp: Diminished breath sounds bilaterally, mild expiratory wheezes; no rhonchi or rales appreciated GI: soft, NT, ND, +BS ACUTE ON CHRONIC RESPIRATORY FAILURE: -obtain CXR to evaluate for pneumonia or congestion although patient appears euvolemic -cover with empiric abx -sputum culture -most likely related to COPD exacerbation for which patient will be started on nebs and IV steroids -continue home medications -check daily weights and I's and O's -obtain CBC and BMP Advanced Directives Existing Living Will: Yes Existing Power of Edger Tailer: Yes VTE Prophylaxis VTE Risk Assessment Done? Y/N: Yes Risk Level: Moderate
[2017-03-19] MEDS: DIGOXIN 0.125 MG TAB PO SCH (21:37)
[2017-03-19] MEDS: ATORVASTATIN 10 MG TAB PO SCH (21:37)
[2017-03-19] MEDS: METOPROLOL TARTRATE 100 MG TAB PO SCH (21:38)
[2017-03-19] MEDS: LEVOFLOXACIN / D5W 750 MG in PREMIXED IN D5W 150 ML IV SCH (21:45)
[2017-03-19] MEDS ORDERED: OPTIRAY 320 IV PRN (21:45)
[2017-03-19 22:10] VITALS: PULSE 73; O2SAT 94
[2017-03-19 23:15] VITALS: BP 109/66; PULSE 70; TEMP 37.2; O2SAT 94
[2017-03-19] MEDS: BREO-ELLIPTA~ORDER AWAITING ACTION SCH (23:17)
[2017-03-20] VITALS (11 sets, daily range): BP systolic 97–147; BP diastolic 55–73; PULSE 62–86; TEMP 36.1–36.6; O2SAT 91–96; Ht 175.3 cm; Wt 159.2 kg
[2017-03-20] MEDS: ALBUT/IPRATROP 3MG/0.5MG NEB 3 ML VIAL INH SCH ×4 (02:05→20:04)
[2017-03-20 02:32] LABS: INR 1.7 (0.9-1.1); PROTHROMBIN TIME (PATIENT) 18.4 SECONDS (9.0-12.0)
[2017-03-20 02:43] LABS: BUN/CREATININE RATIO 18.7 (10-20); CALCIUM 8.9 mg/dl (8.5-10.1); CREATININE 1.6 mg/dl (0.60-1.40); POTASSIUM 4.5 mmol/L (3.5-5.1)
[2017-03-20 02:52] LABS: BETA-HYDROXYBUTYRATE 1.57 mg/dL (0.2-2.81)
[2017-03-20] MEDS: METHYLPREDNISOLONE IV 60 MG in SYRINGE 0 ML IV SCH ×2 (04:07→11:42)
[2017-03-20 05:47] LABS: ESTIMATED AVERAGE GLUCOSE 197 mg/dl; HA1C FLAG Normal (Normal)
[2017-03-20] MEDS: LEVOTHYROXINE 200 MCG TAB PO SCH (06:12)
[2017-03-20] MEDS: LEVOTHYROXINE 25 MCG TAB PO SCH (06:12)
--- NOTE | 2017-03-20 07:09 | DIAGNOSTIC IMAGING REPORT ---
CT ABD/PELVIS IV AND ORAL CONT CLINICAL HISTORY: Diffuse abdominal pain COMPARISON STUDY: 10/27/2016 TECHNIQUE: Following the IV administration of 93 mL of Optiray-320, CT scan of the abdomen and pelvis was performed from the lung bases to the proximal femurs. Images are reviewed in the axial, sagittal, and coronal planes. IV contrast was administered without complication. A dose lowering technique was utilized adhering to the principles of ALARA. CT DOSE: 2258.45 mGy.cm FINDINGS: Lower chest: There are partially visualized airspace opacities with thin the lingula and left lower lobe. The findings are viewed as suspicious for a pneumonia. Clinical and imaging follow-up is recommended. There is nonspecific mediastinal and hilar adenopathy. Liver: The contrast-enhanced liver is normal in size, contour, and attenuation. There is no intrahepatic biliary ductal dilatation. The hepatic veins and portal veins are patent. Gallbladder: There are surgical clips in the region of the gallbladder fossa. There is a persistent small fluid density structure within the gallbladder fossa. Spleen: The spleen is minimally enlarged measuring 12 cm Pancreas: Unremarkable. Adrenal glands: Unremarkable. Kidneys: There is a nonobstructing 3 mm left renal calculus. There is no hydronephrosis. Bowel: There are no transition zones indicate bowel obstruction. There is no evidence of acute diverticulitis. There are no findings to indicate acute appendicitis. Peritoneum: There is no intraperitoneal free air or abdominal ascites. There are postsurgical changes of a ventral hernia repair. Vasculature: The abdominal aorta is normal in course and caliber. Adenopathy: There is no pathologic intra-abdominal or pelvic lymphadenopathy Pelvic viscera: The bladder, and pelvic viscera are unremarkable. Skeletal structures: No destructive osseous lesions are seen. IMPRESSION: 1. Mediastinal and hilar lymphadenopathy 2. Lingular and left lower lobe airspace opacities suspicious for a pneumonia. Clinical and imaging follow-up is recommended 3. No evidence of bowel obstruction. No evidence of free air. 4. No evidence of acute appendicitis. No evidence of acute diverticulitis 5. Stable mild splenomegaly Electronically signed by: Todd Flowers M.D. 03/20/2017 7:08 AM Dictated Date/Time: 03/20/2017 7:03 AM
[2017-03-20] MEDS: BREO-ELLIPTA~ORDER AWAITING ACTION SCH ×2 (08:00→16:00)
[2017-03-20] MEDS: INSULIN ASPART 100 UNITS/ML 3 ML PEN SC SCH ×4 (08:11→21:46)
[2017-03-20] MEDS: SPIRONOLACTONE 25 MG TAB PO SCH (08:13)
[2017-03-20] MEDS: COLCHICINE 0.6 MG TAB PO SCH (08:14)
[2017-03-20] MEDS: DULOXETINE HCL 20 MG CAP PO SCH (08:14)
[2017-03-20] MEDS: ASPIRIN 81 MG ECTAB PO SCH (08:14)
[2017-03-20] MEDS: METOPROLOL TARTRATE 100 MG TAB PO SCH ×2 (08:15→21:44)
[2017-03-20] MEDS: FUROSEMIDE 80 MG TAB PO SCH (08:15)
[2017-03-20] MEDS: METOPROLOL TARTRATE 50 MG TAB PO SCH (08:16)
[2017-03-20] MEDS: PANTOprazole SOD 40 MG TAB PO SCH (08:16)
[2017-03-20] MEDS: CHOLECALCIFEROL 1000 INTER.UNIT TAB PO SCH (08:17)
[2017-03-20] MEDS: ALLOPURINOL 300 MG TAB PO SCH (08:18)
[2017-03-20] MEDS: LISINOPRIL 5 MG TAB PO SCH (08:18)
--- NOTE | 2017-03-20 09:41 | Pharmacy Progress Note ---
Glycemic Control Intl Consult Date of Service Mar 20, 2017. Scope Glycemic Pharmacist consulted by RAO Okeefe on 03/19/17 for glycemic control and to write orders per [facility] inpatient glycemic control protocol Objective Weight (Kilograms): 160.000 Accuchecks BSG (last 24hrs): Test 03/19/17 18:51 03/19/17 19:18 03/19/17 22:04 03/19/17 23:02 Random Glucose 176 mg/dl (70-99) Bedside Glucose 162 mg/dl (70-99) 241 mg/dl (70-99) 242 mg/dl (70-99) Test 03/19/17 23:56 03/20/17 01:10 03/20/17 02:02 03/20/17 02:06 Bedside Glucose 230 mg/dl (70-99) 289 mg/dl (70-99) 266 mg/dl (70-99) Random Glucose 318 mg/dl (70-99) Test 03/20/17 02:58 03/20/17 04:03 03/20/17 04:56 03/20/17 06:04 Bedside Glucose 364 mg/dl (70-99) 296 mg/dl (70-99) 356 mg/dl (70-99) 287 mg/dl (70-99) Test 03/20/17 06:52 Bedside Glucose 283 mg/dl (70-99) Laboratory Data (last 24hrs) Test 03/19/17 18:51 03/20/17 02:06 Anion Gap 3.0 mmol/L 7.0 mmol/L BUN/Creatinine Ratio 19.4 18.7 Blood Urea Nitrogen 27 mg/dl 30 mg/dl Creatinine 1.40 mg/dl 1.60 mg/dl Potassium Level 4.4 mmol/L 4.5 mmol/L Sodium Level 135 mmol/L 132 mmol/L White Blood Count 6.92 K/uL Red Blood Count 4.90 M/uL Hemoglobin 15.0 g/dL Hematocrit 45.4 % Mean Corpuscular Volume 92.7 fL Mean Corpuscular Hemoglobin 30.6 pg Mean Corpuscular Hemoglobin Concent 33.0 g/dl Platelet Count 134 K/uL Mean Platelet Volume 10.8 fL Neutrophils (%) (Auto) 63.6 % Lymphocytes (%) (Auto) 19.5 % Monocytes (%) (Auto) 14.5 % Eosinophils (%) (Auto) 1.6 % Basophils (%) (Auto) 0.4 % Neutrophils # (Auto) 4.40 K/uL Lymphocytes # (Auto) 1.35 K/uL Monocytes # (Auto) 1.00 K/uL Eosinophils # (Auto) 0.11 K/uL Basophils # (Auto) 0.03 K/uL Hemoglobin A1c 8.5 % HbA1c Test 03/20/17 02:06 Hemoglobin A1c 8.5 % (4.5-5.6) H Recent Pertinent Medications Outpatient Anti-diabetic Regimen: * U-500 insulin pump The patient is currently receiving: * Insulin drip at 15.7 units/hr Risk Factors for Insulin Resistance: * Steroids: Solu-medrol 60 mg IV q8h * Diet: AHA/type 2 diabetes Assessment & Plan ASSESSMENT: * 67 y/o male well known to the pharmacy glycemic service, admitted with respiratory failure and started on high-dose steroids * He is significantly insulin resistant, requiring U500 insulin in an insulin pump as an outpatient (>500 units of {U100} insulin/day) * His pump was disconnected on the way to the hospital last night and a decision was made to utilize an insulin drip while in the hospital since his requirements would change with the use of high-dose IV steroids and more of a restricted carb intake in the hospital setting * His BSGs were elevated this AM but have started to improve * I would like to tighten his goal range to provide tighter control and will utilize a set carb ratio since the insulin drip calculator will most likely not use tight enough of one based on his resistance PLAN FOR INPATIENT GLYCEMIC CONTROL: * Continue insulin drip for control of BSGs while on steroids * Tighten goal range slightly to 100-180 mg/dL (still using a wide goal range to prevent frequent changes in the insulin drip) * Utilize a set carb ratio of 1 unit per 2 gm CHO consumed * If BSGs are not able to be adequately controlled on this or patient requiring significant amounts of insulin, will consider having patient resume insulin pump in addition to the insulin drip DISCHARGE RECOMMENDATIONS: * Continue U500 insulin pump with continued follow-up with outpatient [facility] clinic Thank you.
--- NOTE | 2017-03-20 09:50 | Clinical Documentation Query ---
CLINICAL DOCUMENTATION QUERY Dr. TRAYLOR, In your clinical opinion is this patient being managed for: ( x ) RLE wound with excoriation and no central ulceration likely 2/2 venous stasis versus peripheral vascular disease ( ) Not Agree ( ) Other explanation of clinical findings (Please Explain) ( ) Unable to determine (Please Define) ( ) Need to Discuss The medical record reflects the following clinical findings, treatment, and risk factors. Clinical Indicators: 67 yo male presenting with acute respiratory failure and noted to have a RLE wound. Review of wound clinic notes indicates pt has RLE venous stasis ulcer Treatment: WOCN consult pending, current aquacel AG dressing change until evaluated by WOCN Risk Factors: DM, venous insufficiency, morbid obesity Please clarify and document your clinical opinion in the progress notes and discharge summary. Terms such as "probable", "suspected", "likely", "questionable", "possible", or "still to be ruled out" are acceptable. IF IN AGREEMENT, YOU MUST DOCUMENT ABOVE DIAGNOSTIC STATEMENT IN DAILY PROGRESS NOTES AND DISCHARGE SUMMARY. This document is not part of the patient's record. Thank You, Therese Bell, RN [phone]
[2017-03-20] MEDS ORDERED: [UNRECOGNIZED DRUG - REMARK] ONE (10:00)
[2017-03-20] MEDS ORDERED: HUMULIN R U SC SCH (11:30)
[2017-03-20] MEDS: INSULIN REGULAR 250 UNITS in SODIUM CHLORIDE 0.9% 250ML 250 ML IV SCH ×2 (12:03→21:46)
--- NOTE | 2017-03-20 14:39 | Progress Note ---
Medicine Progress Note Date & Time of Visit: Mar 20, 2017 at 14:26. Subjective tolerating PO states his breathing has improved overnight with treatment denies reoccurrence of hematuria denies fevers or chills Objective Last 8 Hrs Date Time Temp Pulse Resp B/P (MAP) Pulse Ox O2 Delivery O2 Flow Rate FiO2 03/20/17 14:19 64 16 96 Nasal Cannula 4.0 03/20/17 12:04 36.5 62 20 116/73 (87) 95 03/20/17 12:00 Nasal Cannula 2.0 03/20/17 08:18 67 120/62 (81) 03/20/17 08:00 Nasal Cannula 2.0 03/20/17 07:33 36.5 72 20 147/67 (93) 92 Nasal Cannula 4.0 03/20/17 07:02 74 16 93 Nasal Cannula 4.0 Physical Exam: GEN: obesity, in no acute distress, alert and appropriate, NC in place, no tachypnea HEENT: NC/AT, PERRL, normal sclerae, MMM CARDIO: reg rate, S1/2 heard without m/g/r LUNGS: CTA bilaterally, no crackles, rales or wheezes, good diaphragmatic excursion ABD: soft, non-tender, non-distended, no rebound or guarding, +BS BACK-examined glutes and intergluteal fold for ulceration but this was not apparent. Pt was clinching tight, however, limiting full view. EXTREMITY: RP and DP palpable 2+ bilat, no LE edema noted, R ankle maceration over skin that appears chronically red NEURO: CN 2-12 grossly intact MUSC: 5/5 strength throughout, no gross focal deficits SKIN: warm and dry and as above. Laboratory Results: 03/19/17 18:51 Red Blood Count 4.90, Mean Corpuscular Volume 92.7, Mean Corpuscular Hemoglobin 30.6, Mean Corpuscular Hemoglobin Concent 33.0, Mean Platelet Volume 10.8, Neutrophils (%) (Auto) 63.6, Lymphocytes (%) (Auto) 19.5, Monocytes (%) (Auto) 14.5, Eosinophils (%) (Auto) 1.6, Basophils (%) (Auto) 0.4, Neutrophils # (Auto ) 4.40, Lymphocytes # (Auto) 1.35, Monocytes # (Auto) 1.00, Eosinophils # (Auto ) 0.11, Basophils # (Auto) 0.03 03/20/17 02:06 Test 03/19/17 18:51 03/20/17 02:06 03/20/17 13:04 White Blood Count 6.92 K/uL (4.8-10.8) Red Blood Count 4.90 M/uL (4.7-6.1) Hemoglobin 15.0 g/dL (14.0-18.0) Hematocrit 45.4 % (42-52) Mean Corpuscular Volume 92.7 fL (80-100) Mean Corpuscular Hemoglobin 30.6 pg (25-34) Mean Corpuscular Hemoglobin Concent 33.0 g/dl (32-36) Platelet Count 134 K/uL (130-400) Mean Platelet Volume 10.8 fL (7.4-10.4) Neutrophils (%) (Auto) 63.6 % Lymphocytes (%) (Auto) 19.5 % Monocytes (%) (Auto) 14.5 % Eosinophils (%) (Auto) 1.6 % Basophils (%) (Auto) 0.4 % Neutrophils # (Auto) 4.40 K/uL (1.4-6.5) Lymphocytes # (Auto) 1.35 K/uL (1.2-3.4) Monocytes # (Auto) 1.00 K/uL (0.11-0.59) Eosinophils # (Auto) 0.11 K/uL (0-0.5) Basophils # (Auto) 0.03 K/uL (0-0.2) RDW Standard Deviation 47.5 fL (36.4-46.3) RDW Coefficient of Variation 14.0 % (11.5-14.5) Immature Granulocyte % (Auto) 0.4 % Immature Granulocyte # (Auto) 0.03 K/uL (0.00-0.02) Thyroid Stimulating Hormone (TSH) 0.825 uIu/ml (0.300-4.500) Prothrombin Time 18.4 SECONDS (9.0-12.0) Prothromb Time International Ratio 1.7 (0.9-1.1) Anion Gap 7.0 mmol/L (3-11) Est Creatinine Clear Calc Drug Dose 69.1 ml/min Estimated GFR () 51.6 Estimated GFR (Non- 44.5 BUN/Creatinine Ratio 18.7 (10-20) Estimated Average Glucose 197 mg/dl Hemoglobin A1c 8.5 % (4.5-5.6) Calcium Level 8.9 mg/dl (8.5-10.1) Beta-Hydroxybutyric Acid 1.57 mg/dL (0.2-2.81) Bedside Glucose 249 mg/dl (70-99) Last 24 Hours Test 03/19/17 18:51 03/19/17 19:18 03/19/17 22:04 03/19/17 23:02 White Blood Count 6.92 K/uL Red Blood Count 4.90 M/uL Hemoglobin 15.0 g/dL Hematocrit 45.4 % Mean Corpuscular Volume 92.7 fL Mean Corpuscular Hemoglobin 30.6 pg Mean Corpuscular Hemoglobin Concent 33.0 g/dl Platelet Count 134 K/uL Mean Platelet Volume 10.8 fL Neutrophils (%) (Auto) 63.6 % Lymphocytes (%) (Auto) 19.5 % Monocytes (%) (Auto) 14.5 % Eosinophils (%) (Auto) 1.6 % Basophils (%) (Auto) 0.4 % Neutrophils # (Auto) 4.40 K/uL Lymphocytes # (Auto) 1.35 K/uL Monocytes # (Auto) 1.00 K/uL Eosinophils # (Auto) 0.11 K/uL Basophils # (Auto) 0.03 K/uL RDW Standard Deviation 47.5 fL RDW Coefficient of Variation 14.0 % Immature Granulocyte % (Auto) 0.4 % Immature Granulocyte # (Auto) 0.03 K/uL Prothrombin Time 19.7 SECONDS Prothromb Time International Ratio 1.8 Sodium Level 135 mmol/L Potassium Level 4.4 mmol/L Chloride Level 96 mmol/L Carbon Dioxide Level 36 mmol/L Anion Gap 3.0 mmol/L Blood Urea Nitrogen 27 mg/dl Creatinine 1.40 mg/dl Est Creatinine Clear Calc Drug Dose 79.0 ml/min Estimated GFR () 60.7 Estimated GFR (Non- 52.4 BUN/Creatinine Ratio 19.4 Random Glucose 176 mg/dl Calcium Level 9.6 mg/dl Thyroid Stimulating Hormone (TSH) 0.825 uIu/ml Bedside Glucose 162 mg/dl 241 mg/dl 242 mg/dl Test 03/19/17 23:56 03/20/17 01:10 03/20/17 02:02 03/20/17 02:06 Bedside Glucose 230 mg/dl 289 mg/dl 266 mg/dl Prothrombin Time 18.4 SECONDS Prothromb Time International Ratio 1.7 Sodium Level 132 mmol/L Potassium Level 4.5 mmol/L Chloride Level 96 mmol/L Carbon Dioxide Level 29 mmol/L Anion Gap 7.0 mmol/L Blood Urea Nitrogen 30 mg/dl Creatinine 1.60 mg/dl Est Creatinine Clear Calc Drug Dose 69.1 ml/min Estimated GFR () 51.6 Estimated GFR (Non- 44.5 BUN/Creatinine Ratio 18.7 Random Glucose 318 mg/dl Estimated Average Glucose 197 mg/dl Hemoglobin A1c 8.5 % Calcium Level 8.9 mg/dl Beta-Hydroxybutyric Acid 1.57 mg/dL Test 03/20/17 02:58 03/20/17 04:03 03/20/17 04:56 03/20/17 06:04 Bedside Glucose 364 mg/dl 296 mg/dl 356 mg/dl 287 mg/dl Test 03/20/17 06:52 03/20/17 08:02 03/20/17 09:01 03/20/17 10:04 Bedside Glucose 283 mg/dl 303 mg/dl 298 mg/dl 310 mg/dl Test 03/20/17 11:00 03/20/17 12:02 03/20/17 13:04 Bedside Glucose 298 mg/dl 252 mg/dl 249 mg/dl Assessment & Plan 67 yo M presents with acute hypoxic respiratory failure 1. COPD exacerbation 2/2 CAP with acute hypoxic respiratory failure-direct admission from pulmonary office for ongoing symptoms for 5 days with hypoxia. Dry cough reported. Pt feels improved overnight. CXR revealing L basial pneumonia. No other fevers or chills. Cont Levaquin, change IV steroids to PO prednisone 2/2 no wheezing and good air movement on exam as well as clinical improvement. Cont Duonebs. Cont oxygen support. 2. RLE wound-no ulceration present, skin appears chronically macerated. Follows with wound care as outpatient and was scheduled for follow-up visit with Dr. Bell regarding intervention for PVD. This will be rescheduled as outpatient. No acute issue at this time. Apprec wound care recs while inpatient. 3. DMIII-on insulin pump at home. While on IV steroids was on insulin drip. Pt is tolerating full meals. Defer to pharmacy to adjust to SQ insulin dosing completely off the IV steroids now. 4. Atrial fibrillation-rate controlled with BB and digoxin. Coumadin 5. Chronic diastolic dysfunction-appears compensated. Cont Lasix, spironolactone and metolazone. 6. HTN-at goal on current medications. 7. Hypothyroidism-TSH at goal, cont Synthroid 8. SALAS-cont CPAP at night 9. Obesity 10. Reports of one episode of gross hematuria as outpatient. Urine studies were ordered. 11. CKD-at baseline. DVT PROPHYLAXIS - on Coumadin CODE STATUS -Full code DISPO -cont tele [facility] Current Inpatient Medications: Current Inpatient Medications Medications (Trade) Dose Ordered Sig/Shane Route Start Time Stop Time Status Last Admin Dose Admin Acetaminophen (Tylenol Tab) 650 mg Q4H PRN PO 03/19/17 18:45 04/18/17 18:44 Ondansetron HCl (Zofran Inj) 4 mg Q6H PRN IV 03/19/17 18:45 04/18/17 18:44 Methylprednisolone Sodium Succinate 60 mg/Syringe 0.96 ml @ 1.5 mls/min Q8H IV 03/19/17 20:00 04/18/17 19:59 03/20/17 11:42 1.5 MLS/MIN Albuterol/ Ipratropium (Duoneb) 3 ml Q6R INH 03/19/17 21:00 04/18/17 20:59 03/20/17 14:17 3 ML Miscellaneous Information (Consult Glycemic Management Pharmacy) 1 ea UD PRN N/A 03/19/17 19:29 04/18/17 19:28 Allopurinol (Zyloprim Tab) 300 mg DAILY PO 03/20/17 09:00 04/19/17 08:59 03/20/17 08:18 300 MG Aspirin (Ecotrin Tab) 81 mg DAILY PO 03/20/17 09:00 04/19/17 08:59 03/20/17 08:14 81 MG Atorvastatin Calcium (Lipitor Tab) 10 mg HS PO 03/19/17 21:00 04/18/17 20:59 03/19/17 21:37 10 MG Colchicine (Colchicine Tab) 0.6 mg DAILY PO 03/20/17 09:00 04/19/17 08:59 03/20/17 08:14 0.6 MG Digoxin (Lanoxin Tab) 0.125 mg QPM PO 03/19/17 21:00 04/18/17 20:59 03/19/17 21:37 0.125 MG Duloxetine HCl (Cymbalta Cap) 20 mg QAM PO 03/20/17 09:00 04/19/17 08:59 03/20/17 08:14 20 MG Furosemide (Lasix Tab) 80 mg DAILY PO 03/20/17 09:00 04/19/17 08:59 03/20/17 08:15 80 MG Levothyroxine Sodium (Synthroid Tab) 25 mcg DAILYBB PO 03/20/17 06:00 04/19/17 05:59 03/20/17 06:12 25 MCG Levothyroxine Sodium (Synthroid Tab) 200 mcg DAILYBB PO 03/20/17 06:00 04/19/17 05:59 03/20/17 06:12 200 MCG Lisinopril (Zestril Tab) 2.5 mg QAM PO 03/20/17 09:00 04/19/17 08:59 03/20/17 08:18 2.5 MG Metolazone (Zaroxolyn Tab) 2.5 mg Cabrera@0900 PO 03/22/17 09:00 04/21/17 08:59 Metoprolol Tartrate (Lopressor Tab) 50 mg QAM PO 03/20/17 09:00 04/19/17 08:59 03/20/17 08:16 50 MG Metoprolol Tartrate (Lopressor Tab) 100 mg BID PO 03/19/17 21:00 04/18/17 20:59 03/20/17 08:15 100 MG Senna (Senokot Tab) 8.6 mg BID PRN PO 03/19/17 19:45 04/18/17 19:44 Spironolactone (Aldactone Tab) 12.5 mg QAM PO 03/20/17 09:00 04/19/17 08:59 03/20/17 08:13 12.5 MG Cholecalciferol (Vitamin D Tab) 2,000 inter.unit QAM PO 03/20/17 09:00 10/8/17 08:59 03/20/17 08:17 2,000 INTER.UNIT Miscellaneous Information (Order Awaiting Action) 1 ea QS N/A 03/20/17 00:00 04/19/17 00:00 Pantoprazole Sodium (Protonix Tab) 40 mg QAM PO 03/20/17 09:00 04/19/17 08:59 03/20/17 08:16 40 MG Insulin Human Regular 250 units/ Sodium Chloride 252.5 ml @ 0 mls/hr DAILY@1130 IV 03/19/17 20:30 04/18/17 20:29 03/20/17 12:03 30 MLS/HR Glucose (Glucose 40% Gel) UD PRN PO 03/19/17 20:15 04/18/17 20:14 Glucose (Glucose Chew Tab) 1 tabs UD PRN PO 03/19/17 20:15 04/18/17 20:14 Dextrose (Dextrose 50% 50ML Syringe) 50 ml UD PRN IV 03/19/17 20:15 04/18/17 20:14 Glucagon (Glucagon Inj) 1 mg UD PRN SQ 03/19/17 20:15 04/18/17 20:14 Levofloxacin 750 mg/Prmx 150 ml @ 100 mls/hr Q24H IV 03/19/17 22:00 03/26/17 21:59 03/19/17 21:45 100 MLS/HR Ioversol (Optiray 320) 100 ml UD PRN IV 03/19/17 21:45 03/23/17 21:44 Insulin Human Regular 40 units/ Syringe 0.08 ml @ 0 mls/sec BIDM SC 03/20/17 11:30 04/19/17 11:29 03/20/17 11:45 40 MLS/SEC
[2017-03-20 19:27] LABS: URINE APPEARANCE CLEAR (CLEAR); URINE BILIRUBIN NEG (NEG); URINE COLOR YELLOW; URINE NITRITE NEG (NEG); URINE SPECIFIC GRAVITY 1.029 (1.000-1.030); UROBILINOGEN NEG (NEG)
[2017-03-20 19:29] LABS: MANUAL MICROSCOPIC REQUIRED? NO; REVIEW REQ? NO
[2017-03-20] MEDS: ATORVASTATIN 10 MG TAB PO SCH (21:43)
[2017-03-20] MEDS: DIGOXIN 0.125 MG TAB PO SCH (21:44)
[2017-03-20] MEDS: LEVOFLOXACIN / D5W 750 MG in PREMIXED IN D5W 150 ML IV SCH (21:47)
[2017-03-21] VITALS (11 sets, daily range): BP systolic 104–133; BP diastolic 64–79; PULSE 57–92; TEMP 36.3–37.2; O2SAT 91–95
[2017-03-21] MEDS: ALBUT/IPRATROP 3MG/0.5MG NEB 3 ML VIAL INH SCH ×4 (01:47→21:30)
[2017-03-21 06:20] LABS: COMPLETE YES; HEMATOCRIT 43.1 % (42-52); IG% 0.6 %; LYMPH % 8.8 %; LYMPH ABS # 0.93 K/uL (1.2-3.4); MEAN CORPUSCULAR HEMOGLOBIN 30.7 pg (25-34); MEAN CORPUSCULAR HGB CONC 34.1 g/dl (32-36); MEAN PLATELET VOLUME 10.8 fL (7.4-10.4); MONO % 10.4 %; NEUT % 80.2 %; PLATELET COUNT 151 K/uL (130-400); RED BLOOD COUNT 4.79 M/uL (4.7-6.1)
[2017-03-21 06:54] LABS: BUN/CREATININE RATIO 31.1 (10-20); CALCIUM 9.8 mg/dl (8.5-10.1); CREATININE 1.2 mg/dl (0.60-1.40); POTASSIUM 4.2 mmol/L (3.5-5.1)
[2017-03-21] MEDS ORDERED: [UNRECOGNIZED DRUG - REMARK] ONE (07:30)
[2017-03-21] MEDS: BREO-ELLIPTA~ORDER AWAITING ACTION SCH ×4 (08:00→23:39)
[2017-03-21] MEDS: LEVOTHYROXINE 25 MCG TAB PO SCH (08:10)
[2017-03-21] MEDS: LEVOTHYROXINE 200 MCG TAB PO SCH (08:10)
[2017-03-21] MEDS: INSULIN ASPART 100 UNITS/ML 3 ML PEN SC SCH ×4 (08:14→22:30)
[2017-03-21] MEDS: SPIRONOLACTONE 25 MG TAB PO SCH (08:16)
[2017-03-21] MEDS: DULOXETINE HCL 20 MG CAP PO SCH (08:17)
[2017-03-21] MEDS: COLCHICINE 0.6 MG TAB PO SCH (08:17)
[2017-03-21] MEDS: METOPROLOL TARTRATE 50 MG TAB PO SCH (08:18)
[2017-03-21] MEDS: METOPROLOL TARTRATE 100 MG TAB PO SCH ×2 (08:18→20:09)
[2017-03-21] MEDS: CHOLECALCIFEROL 1000 INTER.UNIT TAB PO SCH (08:19)
[2017-03-21] MEDS: LISINOPRIL 5 MG TAB PO SCH (08:20)
[2017-03-21] MEDS: ASPIRIN 81 MG ECTAB PO SCH (09:04)
[2017-03-21] MEDS: FUROSEMIDE 80 MG TAB PO SCH (09:05)
[2017-03-21] MEDS: ALLOPURINOL 300 MG TAB PO SCH (09:05)
[2017-03-21] MEDS: PANTOprazole SOD 40 MG TAB PO SCH (09:05)
--- NOTE | 2017-03-21 09:34 | Pharmacy Progress Note ---
Glycemic Control Progress Note Date of Service Mar 21, 2017. Scope Glycemic Pharmacist consulted for glycemic control to write orders per [facility] inpatient glycemic control protocol. Objective Accuchecks BSG (last 24hrs): Test 03/20/17 10:04 03/20/17 11:00 03/20/17 12:02 03/20/17 13:04 Bedside Glucose 310 mg/dl (70-99) 298 mg/dl (70-99) 252 mg/dl (70-99) 249 mg/dl (70-99) Test 03/20/17 14:05 03/20/17 15:04 03/20/17 15:59 03/20/17 17:04 Bedside Glucose 188 mg/dl (70-99) 200 mg/dl (70-99) 177 mg/dl (70-99) 160 mg/dl (70-99) Test 03/20/17 17:59 03/20/17 19:10 03/20/17 20:01 03/20/17 21:04 Bedside Glucose 205 mg/dl (70-99) 165 mg/dl (70-99) 128 mg/dl (70-99) 135 mg/dl (70-99) Test 03/20/17 22:04 03/20/17 23:57 03/21/17 01:51 03/21/17 03:51 Bedside Glucose 132 mg/dl (70-99) 145 mg/dl (70-99) 145 mg/dl (70-99) 133 mg/dl (70-99) Test 03/21/17 05:51 03/21/17 05:54 Random Glucose 119 mg/dl (70-99) Bedside Glucose 114 mg/dl (70-99) HbA1c: Test 03/20/17 02:06 Hemoglobin A1c 8.5 % (4.5-5.6) H Recent Pertinent Medications Outpatient Anti-diabetic Regimen: * U-500 insulin pump The patient is currently receiving: * Insulin drip at 19.2 units/hr, in addition to SQ Novolog 1 unit per 2 gm CHO consumed Risk Factors for Insulin Resistance: * Steroids: Solu-medrol 60 mg IV q8h -> decreased to prednisone 40 mg daily * Diet: AHA/type 2 diabetes Assessment & Plan ASSESSMENT: 03/20/17 * 67 y/o male well known to the pharmacy glycemic service, admitted with respiratory failure and started on high-dose steroids * He is significantly insulin resistant, requiring U500 insulin in an insulin pump as an outpatient (>500 units of {U100} insulin/day) * His pump was disconnected on the way to the hospital last night and a decision was made to utilize an insulin drip while in the hospital since his requirements would change with the use of high-dose IV steroids and more of a restricted carb intake in the hospital setting * His BSGs were elevated this AM but have started to improve * I would like to tighten his goal range to provide tighter control and will utilize a set carb ratio since the insulin drip calculator will most likely not use tight enough of one based on his resistance 03/21/17 * Patient continues on the insulin drip and rate was consistent overnight * He only required 1 dose of U500 yesterday to keep BSGs under control and insulin drip rate to not be above max rate of 30 units/hr * Since the patient is still requiring at least 500 units of insulin/day on the insulin drip and steroids are changing, plan will be to continue the insulin drip but tighten the CR so that BSGs do not drastically increase after po consumption * Will also adjust the goal range slightly so that insulin drip will not need adjusted as much PLAN FOR INPATIENT GLYCEMIC CONTROL: * Continue insulin drip with goal range 100-200 mg/dL * TIGHTEN carb ratio to 1 unit per 1 gm CHO consumed * Resume insulin pump prior to discharge DISCHARGE RECOMMENDATIONS: * Continue U500 insulin pump with continued follow-up with outpatient [facility] clinic Thank you.
[2017-03-21] MEDS ORDERED: WARFARIN SOD 7.5 MG TAB PO SCH (17:00)
--- NOTE | 2017-03-21 17:03 | Progress Note ---
Medicine Progress Note Date & Time of Visit: Mar 21, 2017 at 16:43. Subjective breathing is reportedly improved since yesterday and he is requiring less oxygen support today he is tolerating PO, denies fevers, chills, nausea or other pain states that he spoke with Dr. Bell who is planning outpatient procedure on him in a couple of weeks. Objective Last 8 Hrs Date Time Temp Pulse Resp B/P (MAP) Pulse Ox O2 Delivery O2 Flow Rate FiO2 03/21/17 14:14 64 16 95 Nasal Cannula 3.0 03/21/17 12:00 Nasal Cannula 4.0 03/21/17 11:41 36.5 57 18 120/79 (93) 95 3.0 Physical Exam: GEN: obesity, in no acute distress, alert and appropriate, NC in place, no tachypnea HEENT: NC/AT, normal sclerae, MMM CARDIO: reg rate, S1/2 heard without m/g/r LUNGS: CTA bilaterally, no crackles, rales or wheezes, good diaphragmatic excursion ABD: soft, non-tender, non-distended, no rebound or guarding, +BS EXTREMITY: RP and DP palpable 2+ bilat, no LE edema noted, R ankle maceration over skin that appears chronically red NEURO: CN 2-12 grossly intact MUSC: 5/5 strength throughout, no gross focal deficits SKIN: warm and dry and as above. Laboratory Results: 03/21/17 05:51 Red Blood Count 4.79, Mean Corpuscular Volume 90.0, Mean Corpuscular Hemoglobin 30.7, Mean Corpuscular Hemoglobin Concent 34.1, Mean Platelet Volume 10.8, Neutrophils (%) (Auto) 80.2, Lymphocytes (%) (Auto) 8.8, Monocytes (%) (Auto) 10.4, Eosinophils (%) (Auto) 0.0, Basophils (%) (Auto) 0.0, Neutrophils # (Auto ) 8.51, Lymphocytes # (Auto) 0.93, Monocytes # (Auto) 1.10, Eosinophils # (Auto ) 0.00, Basophils # (Auto) 0.00 03/21/17 05:51 Test 03/19/17 18:51 03/20/17 02:06 03/20/17 16:02 03/21/17 05:51 Thyroid Stimulating Hormone (TSH) 0.825 uIu/ml (0.300-4.500) Prothrombin Time 18.4 SECONDS (9.0-12.0) Prothromb Time International Ratio 1.7 (0.9-1.1) Estimated Average Glucose 197 mg/dl Hemoglobin A1c 8.5 % (4.5-5.6) Beta-Hydroxybutyric Acid 1.57 mg/dL (0.2-2.81) Urine Color YELLOW Urine Appearance CLEAR (CLEAR) Urine pH 5.0 (4.5-7.5) Urine Specific Henry 1.029 (1.000-1.030) Urine Protein NEG (NEG) Urine Glucose (UA) 2+ (NEG) Urine Ketones NEG (NEG) Urine Occult Blood NEG (NEG) Urine Nitrite NEG (NEG) Urine Bilirubin NEG (NEG) Urine Urobilinogen NEG (NEG) Urine Leukocyte Esterase NEG (NEG) White Blood Count 10.60 K/uL (4.8-10.8) Red Blood Count 4.79 M/uL (4.7-6.1) Hemoglobin 14.7 g/dL (14.0-18.0) Hematocrit 43.1 % (42-52) Mean Corpuscular Volume 90.0 fL (80-100) Mean Corpuscular Hemoglobin 30.7 pg (25-34) Mean Corpuscular Hemoglobin Concent 34.1 g/dl (32-36) Platelet Count 151 K/uL (130-400) Mean Platelet Volume 10.8 fL (7.4-10.4) Neutrophils (%) (Auto) 80.2 % Lymphocytes (%) (Auto) 8.8 % Monocytes (%) (Auto) 10.4 % Eosinophils (%) (Auto) 0.0 % Basophils (%) (Auto) 0.0 % Neutrophils # (Auto) 8.51 K/uL (1.4-6.5) Lymphocytes # (Auto) 0.93 K/uL (1.2-3.4) Monocytes # (Auto) 1.10 K/uL (0.11-0.59) Eosinophils # (Auto) 0.00 K/uL (0-0.5) Basophils # (Auto) 0.00 K/uL (0-0.2) RDW Standard Deviation 45.1 fL (36.4-46.3) RDW Coefficient of Variation 13.8 % (11.5-14.5) Immature Granulocyte % (Auto) 0.6 % Immature Granulocyte # (Auto) 0.06 K/uL (0.00-0.02) Anion Gap 6.0 mmol/L (3-11) Est Creatinine Clear Calc Drug Dose 92.4 ml/min Estimated GFR () 73.1 Estimated GFR (Non- 63.1 BUN/Creatinine Ratio 31.1 (10-20) Calcium Level 9.8 mg/dl (8.5-10.1) Test 03/21/17 16:32 Bedside Glucose 157 mg/dl (70-99) Date/Time Source Procedure Growth Status 03/20/17 16:02 Urine , Clean Catch Urine Culture - Preliminary NO GROWTH - LESS THAN 1,000 COLONIES/... Resulted Last 24 Hours Test 03/20/17 17:04 03/20/17 17:59 03/20/17 19:10 03/20/17 20:01 Bedside Glucose 160 mg/dl 205 mg/dl 165 mg/dl 128 mg/dl Test 03/20/17 21:04 03/20/17 22:04 03/20/17 23:57 03/21/17 01:51 Bedside Glucose 135 mg/dl 132 mg/dl 145 mg/dl 145 mg/dl Test 03/21/17 03:51 03/21/17 05:51 03/21/17 05:54 03/21/17 08:06 Bedside Glucose 133 mg/dl 114 mg/dl 125 mg/dl White Blood Count 10.60 K/uL Red Blood Count 4.79 M/uL Hemoglobin 14.7 g/dL Hematocrit 43.1 % Mean Corpuscular Volume 90.0 fL Mean Corpuscular Hemoglobin 30.7 pg Mean Corpuscular Hemoglobin Concent 34.1 g/dl Platelet Count 151 K/uL Mean Platelet Volume 10.8 fL Neutrophils (%) (Auto) 80.2 % Lymphocytes (%) (Auto) 8.8 % Monocytes (%) (Auto) 10.4 % Eosinophils (%) (Auto) 0.0 % Basophils (%) (Auto) 0.0 % Neutrophils # (Auto) 8.51 K/uL Lymphocytes # (Auto) 0.93 K/uL Monocytes # (Auto) 1.10 K/uL Eosinophils # (Auto) 0.00 K/uL Basophils # (Auto) 0.00 K/uL RDW Standard Deviation 45.1 fL RDW Coefficient of Variation 13.8 % Immature Granulocyte % (Auto) 0.6 % Immature Granulocyte # (Auto) 0.06 K/uL Sodium Level 136 mmol/L Potassium Level 4.2 mmol/L Chloride Level 100 mmol/L Carbon Dioxide Level 30 mmol/L Anion Gap 6.0 mmol/L Blood Urea Nitrogen 37 mg/dl Creatinine 1.20 mg/dl Est Creatinine Clear Calc Drug Dose 92.4 ml/min Estimated GFR () 73.1 Estimated GFR (Non- 63.1 BUN/Creatinine Ratio 31.1 Random Glucose 119 mg/dl Calcium Level 9.8 mg/dl Test 03/21/17 09:01 03/21/17 10:03 03/21/17 11:01 03/21/17 12:08 Bedside Glucose 210 mg/dl 110 mg/dl 98 mg/dl 71 mg/dl Test 03/21/17 12:31 03/21/17 13:01 03/21/17 13:40 Bedside Glucose 106 mg/dl 137 mg/dl 146 mg/dl Assessment & Plan 67 yo M presents with acute hypoxic respiratory failure 1. COPD exacerbation 2/2 CAP with acute hypoxic respiratory failure-direct admission from pulmonary office for ongoing symptoms for 5 days with hypoxia. Dry cough reported which is persistent today. Pt feels overall improved since admission. CXR revealing L basial pneumonia. Denies fevers or chills overnight. Cont Levaquin PO, PO prednisone. Cont Duonebs. Cont oxygen support. 2. RLE wound with excoriation and no central ulceration likely 2/2 venous stasis versus peripheral vascular disease. Follows with wound care as outpatient. Apprec wound care recs while inpatient. Per pt, Ray Ohara spoke with him and will plan to perform vascular procedure on his legs in a couple of weeks as outpatient, once he has improved from a pulmonary standpoint. 3. DMIII-on insulin pump at home. Cont insulin drip for optimal management while inpatient with transition to insulin pump closer to discharge. Spoke with inpatient glycemic pharmacist regarding this plan. 4. Atrial fibrillation-rate controlled with BB and digoxin. Coumadin restarted as given one dose on admission that was not continued yesterday. Trend INR daily. 5. Chronic diastolic dysfunction-appears compensated. Cont Lasix, spironolactone and metolazone. 6. HTN-at goal on current medications. 7. Hypothyroidism-TSH at goal, cont Synthroid 8. SALAS-cont CPAP at night 9. Obesity 10. Reports of one episode of gross hematuria as outpatient. Urine studies were ordered. No microscopic hematuria seen. Follow-up as outpatient PRN. 11. CKD-at baseline. DVT PROPHYLAXIS - on Coumadin CODE STATUS -Full code DISPO -cont tele DO [facility] Current Inpatient Medications: Current Inpatient Medications Medications (Trade) Dose Ordered Sig/Shane Route Start Time Stop Time Status Last Admin Dose Admin Acetaminophen (Tylenol Tab) 650 mg Q4H PRN PO 03/19/17 18:45 04/18/17 18:44 03/21/17 00:56 650 MG Ondansetron HCl (Zofran Inj) 4 mg Q6H PRN IV 03/19/17 18:45 04/18/17 18:44 Albuterol/ Ipratropium (Duoneb) 3 ml Q6R INH 03/19/17 21:00 04/18/17 20:59 03/21/17 14:13 3 ML Miscellaneous Information (Consult Glycemic Management Pharmacy) 1 ea UD PRN N/A 03/19/17 19:29 04/18/17 19:28 Insulin Aspart (novoLOG ASPART) SLIDING SCALE [facility] 03/19/17 21:00 04/19/17 20:59 03/21/17 08:14 50 UNITS Allopurinol (Zyloprim Tab) 300 mg DAILY PO 03/20/17 09:00 04/19/17 08:59 03/21/17 09:05 300 MG Aspirin (Ecotrin Tab) 81 mg DAILY PO 03/20/17 09:00 04/19/17 08:59 03/21/17 09:04 81 MG Atorvastatin Calcium (Lipitor Tab) 10 mg HS PO 03/19/17 21:00 04/18/17 20:59 03/20/17 21:43 10 MG Colchicine (Colchicine Tab) 0.6 mg DAILY PO 03/20/17 09:00 04/19/17 08:59 03/21/17 08:17 0.6 MG Digoxin (Lanoxin Tab) 0.125 mg QPM PO 03/19/17 21:00 04/18/17 20:59 03/20/17 21:44 0.125 MG Duloxetine HCl (Cymbalta Cap) 20 mg QAM PO 03/20/17 09:00 04/19/17 08:59 03/21/17 08:17 20 MG Furosemide (Lasix Tab) 80 mg DAILY PO 03/20/17 09:00 04/19/17 08:59 03/21/17 09:05 80 MG Levothyroxine Sodium (Synthroid Tab) 25 mcg DAILYBB PO 03/20/17 06:00 04/19/17 05:59 03/21/17 08:10 25 MCG Levothyroxine Sodium (Synthroid Tab) 200 mcg DAILYBB PO 03/20/17 06:00 04/19/17 05:59 03/21/17 08:10 200 MCG Lisinopril (Zestril Tab) 2.5 mg QAM PO 03/20/17 09:00 04/19/17 08:59 03/21/17 08:20 2.5 MG Metolazone (Zaroxolyn Tab) 2.5 mg Cabrera@0900 PO 03/22/17 09:00 04/21/17 08:59 Metoprolol Tartrate (Lopressor Tab) 50 mg QAM PO 03/20/17 09:00 04/19/17 08:59 03/21/17 08:18 50 MG Metoprolol Tartrate (Lopressor Tab) 100 mg BID PO 03/19/17 21:00 04/18/17 20:59 03/21/17 08:18 100 MG Senna (Senokot Tab) 8.6 mg BID PRN PO 03/19/17 19:45 04/18/17 19:44 Spironolactone (Aldactone Tab) 12.5 mg QAM PO 03/20/17 09:00 04/19/17 08:59 03/21/17 08:16 12.5 MG Cholecalciferol (Vitamin D Tab) 2,000 inter.unit QAM PO 03/20/17 09:00 04/19/17 08:59 03/21/17 08:19 2,000 INTER.UNIT Miscellaneous Information (Order Awaiting Action) 1 ea QS N/A 03/20/17 00:00 04/19/17 00:00 Pantoprazole Sodium (Protonix Tab) 40 mg QAM PO 03/20/17 09:00 04/19/17 08:59 03/21/17 09:05 40 MG Insulin Human Regular 250 units/ Sodium Chloride 252.5 ml @ 0 mls/hr DAILY@1130 IV 03/19/17 20:30 04/18/17 20:29 03/20/17 21:46 19.2 MLS/HR Glucose (Glucose 40% Gel) UD PRN PO 03/19/17 20:15 04/18/17 20:14 Glucose (Glucose Chew Tab) 1 tabs UD PRN PO 03/19/17 20:15 04/18/17 20:14 Dextrose (Dextrose 50% 50ML Syringe) 50 ml UD PRN IV 03/19/17 20:15 04/18/17 20:14 Glucagon (Glucagon Inj) 1 mg UD PRN SQ 03/19/17 20:15 04/18/17 20:14 Ioversol (Optiray 320) 100 ml UD PRN IV 03/19/17 21:45 03/23/17 21:44 Prednisone (PredniSONE TAB) 40 mg DAILY PO 03/21/17 09:00 03/25/17 08:59 03/21/17 08:19 40 MG Levofloxacin (Levaquin Tab) 750 mg DAILY@2100 PO 03/21/17 21:00 03/28/17 20:59 UNV
[2017-03-21] MEDS: INSULIN REGULAR 250 UNITS in SODIUM CHLORIDE 0.9% 250ML 250 ML IV SCH ×2 (19:52→23:02)
[2017-03-21] MEDS: ATORVASTATIN 10 MG TAB PO SCH (20:03)
[2017-03-21] MEDS: DIGOXIN 0.125 MG TAB PO SCH (20:09)
[2017-03-21] MEDS ORDERED: LEVOFLOXACIN 750 MG TAB PO SCH (21:00)
[2017-03-22 02:10] VITALS: PULSE 65; O2SAT 95
[2017-03-22] MEDS: ALBUT/IPRATROP 3MG/0.5MG NEB 3 ML VIAL INH SCH ×3 (02:10→14:15)
[2017-03-22] MEDS: LEVOTHYROXINE 25 MCG TAB PO SCH (06:02)
[2017-03-22] MEDS: LEVOTHYROXINE 200 MCG TAB PO SCH (06:02)
[2017-03-22 06:39] LABS: INR 2.2 (0.9-1.1); PROTHROMBIN TIME (PATIENT) 24.9 SECONDS (9.0-12.0)
[2017-03-22 07:04] LABS: BUN/CREATININE RATIO 27.3 (10-20); CALCIUM 9.3 mg/dl (8.5-10.1); CREATININE 1.5 mg/dl (0.60-1.40); POTASSIUM 3.9 mmol/L (3.5-5.1)
[2017-03-22 07:22] VITALS: BP 96/63; PULSE 110; TEMP 36.5; O2SAT 91
[2017-03-22 07:25] VITALS: PULSE 78; O2SAT 93
[2017-03-22] MEDS: FUROSEMIDE 80 MG TAB PO SCH (07:41)
[2017-03-22] MEDS: ALLOPURINOL 300 MG TAB PO SCH (07:41)
[2017-03-22] MEDS: PANTOprazole SOD 40 MG TAB PO SCH (07:41)
[2017-03-22] MEDS: ASPIRIN 81 MG ECTAB PO SCH (07:41)
[2017-03-22] MEDS: LISINOPRIL 5 MG TAB PO SCH (07:42)
[2017-03-22] MEDS: METOPROLOL TARTRATE 50 MG TAB PO SCH (07:43)
[2017-03-22] MEDS: DULOXETINE HCL 20 MG CAP PO SCH (07:43)
[2017-03-22] MEDS: METOPROLOL TARTRATE 100 MG TAB PO SCH (07:43)
[2017-03-22] MEDS: COLCHICINE 0.6 MG TAB PO SCH (07:43)
[2017-03-22] MEDS: BREO-ELLIPTA~ORDER AWAITING ACTION SCH (07:44)
[2017-03-22] MEDS: CHOLECALCIFEROL 1000 INTER.UNIT TAB PO SCH (07:44)
[2017-03-22] MEDS: SPIRONOLACTONE 25 MG TAB PO SCH (07:44)
[2017-03-22 07:50] VITALS: BP 108/67
[2017-03-22] MEDS: INSULIN ASPART 100 UNITS/ML 3 ML PEN SC SCH ×2 (08:31→12:52)
[2017-03-22] MEDS ORDERED: METOLAZONE 2.5 MG TAB PO SCH (09:00)
--- NOTE | 2017-03-22 09:08 | Pharmacy Progress Note ---
Glycemic: Assessment & Plan Date of Service Mar 22, 2017. Assessment & Plan * Patient is currently receiving between 200-300 units of insulin/day utilizing an insulin drip and prandial coverage with Novolog * BSGs ranging 71-211 over the past 24hrs * Risk factors for insulin resistance are constant over the past 24hrs * Steroid dosing unchanged * No change to insulin regimen. Plan is to continue the insulin drip until closer to discharge when patient can resume U500 insulin pump. BSGs continue to improve, no changes needed to inpatient regimen at this time. Pharmacy will continue to monitor patient daily and write orders per [facility] inpatient glycemic control protocol. Thanks. * Please note that the plan above was derived based on current level of insulin resistance and hospital stress. These recommendations are appropriate for inpatient admission only. Plan of care upon discharge will need to be reassessed to avoid potential outpatient hypo/hyperglycemia.
[2017-03-22] MEDS ORDERED: PRD20 PO (11:56)
[2017-03-22] MEDS ORDERED: LVQ750 PO (11:56)
--- NOTE | 2017-03-22 12:00 | Discharge Instructions ---
Discharge Instructions Date of Service Mar 22, 2017. Admission Reason for Admission: Acute Respiratory Insufficiency, Hematuria Discharge Discharge Diagnosis / Problem: CAP, COPD Discharge Goals Goal(s): Prevent Disease Progression Activity Recommendations Activity Limitations: per Instructions/Follow-up section . Instructions / Follow-Up Instructions / Follow-Up Please take all medications as instructed. You will need a follow-up appointment next week with primary care physician. As it is the weekend, we will call you tomorrow regarding the scheduled time for this appointment. A repeat chest xray is recommended in 4-6 weeks to ensure resolution of the pneumonia. Please followup with the wound center and the coumadin clinic as you had previously had plans to do. It was a pleasure taking care of you! Call if you have any questions or problems. You can reach a [facility] hospitalist on duty at [facility] 24 hours a day by calling [phone]. Take care of yourself. Marina Freeman, [facility] Hospitalist Current Hospital Diet Patient's current hospital diet: AHA Diet (Heart Healthy), Diabetes Type 2 Diet Discharge Diet Recommended Diet: AHA Diet (Heart Healthy), Diabetes Type 2 Diet Procedures Procedures Performed: None. Pending Studies Studies pending at discharge: no Laboratory Results Hemoglobin A1c Test 03/20/17 02:06 Range/Units Estimated Average Glucose 197 mg/dl Hemoglobin A1c 8.5 H 4.5-5.6 % Medical Emergencies . Who to Call and When: Medical Emergencies: If at any time you feel your situation is an emergency, please call 911 immediately. . Non-Emergent Contact Non-Emergency issues call your: Primary Care Provider . . "Provider Documentation" section prepared by Marina Freeman. . VTE Core Measure Inpt VTE Proph given/why not?: Warfarin (Coumadin)
--- NOTE | 2017-03-22 12:07 | Discharge Summary ---
Discharge Summary Date of Service Mar 22, 2017. Discharge Summary Admission Date: Mar 19, 2017 at 18:30 Discharge Date: Mar 22, 2017 Discharge Disposition: Home with services Principal Diagnosis: Acute on chronic hypoxic respiratory failure COPD exacerbation 2/2 CAP SALAS on CPAP with nocturnal oxygen RLE venous ulcerative wound DMII on insulin pump Atrial fibrillation On long-term anticoagulation with coumadin HTN Hypothyroidism Obesity CKD III Procedures: None. Vaccinations: None. Consultations: None. Pending Studies/Follow-Up: see instructions below. Medication Reconciliation New Medications: Levofloxacin (Levofloxacin) 750 Mg Tab 750 MG PO DAILY for 5 Days, #5 TAB Prednisone (Prednisone) 20 Mg Tab 40 MG PO DAILY for 3 Days, #6 TAB Continued Medications: Albuterol (Ventolin Hfa) 60 Puffs/5400 Mcg Aers 2 PUFFS INH QID PRN for SOB/Wheezing Albuterol Sulf (Albuterol Sulfate) 2.5 Mg/3 Ml Nebu 1 INHA INH Q4H PRN for SOB/Wheezing Allopurinol (Zyloprim) 300 Mg Tab 300 MG PO DAILY, TAB Aspirin (Aspirin Ec) 81 Mg Tab 81 MG PO DAILY Atorvastatin (Lipitor) 20 Mg Tab 10 MG PO HS, TAB Cholecalciferol (Vitamin D3) 2,000 Unit Tab 2000 UNITS PO QAM for 90 Days, TAB 3 Refills Clotrimazole W/ Betamethasone (Lotrisone) 1 Cre Cre 1 APPLN TOP BID PRN for rash for 7 Days, #30 GM 1 Refill Colchicine (Colchicine) 0.6 Mg Tab 0.6 MG PO DAILY, TAB Digoxin (Digoxin) 0.125 Mg Tab 0.125 MG PO QPM AFTER 6PM, PER PATIENT'S LIST. Duloxetine HCl (Cymbalta) 20 Mg Cap 20 MG PO QAM for 30 Days, #30 CAP Fluticasone Furoate-Vilanterol (Breo Ellipta 200-25 Mcg/INH) 1 Inh Inh 1 INHA INH DAILY Fluticasone Propionate (Nasal) (Flonase Allergy Relief) 50 Mcg/Act Spr 2 SPRAYS NA DAILY Furosemide (Lasix) 80 Mg Tab 80 MG PO DAILY, TAB Insulin Regular. (Humulin R U-500 (Concentr) 10,000 Units/Vial Unit as directed via insulin pump Ketoconazole (Ketoconazole) 45 Appln/15 Gm Cr 1 APPLN EXT DAILY PRN for rash Levothyroxine Sodium (Synthroid) 200 Mcg Tab 200 MCG PO QAM, TAB Levothyroxine Sodium (Synthroid) 25 Mcg Tab 25 MCG PO QAM TAKE WITH 200 MCG, TOTAL DOSE 225 MCG Lisinopril (Prinivil) 5 Mg Tab 2.5 MG PO QAM, TAB Metolazone (Metolazone) 2.5 Mg Tab 2.5 MG PO SUNDAYS Metoprolol Tartrate (Lopressor) (Lopressor) 100 Mg Tab 100 MG PO BID, TAB Metoprolol Tartrate (Lopressor) (Lopressor) 50 Mg Tab 50 MG PO QAM for TAKE WITH 100 MG Mupirocin (Bactroban) 15 Gm Cr 1 APPLN TOP PRN for for 10 Days, #30 GM Omeprazole (Prilosec) 20 Mg Capcr 20 MG PO QAM, CAP Sennosides (Senokot) 8.6 Mg Tab 8.6 MG PO BID PRN for Constipation, TAB Spironolactone (Aldactone) 25 Mg Tab 12.5 MG PO QAM, TAB Warfarin Sod (Coumadin) 4 Mg Tab 4 MG PO 4XWK MON, WED, FRI, SAT Warfarin Sod (Jantoven) 4 Mg Tab 6 MG PO 3XWK 1 / TAB ON* THU, , TH. Admission Information HPI (per Admitting provider): 67 year old male who presents as a direct admission from the pulmonary office for shortness of breath. He was noted to be hypoxic in the 80s at the pulmonary office. Patient reports his shortness of breath started 5 days ago. It has been progressively getting worse. He reports a moist non productive cough. He denies fever and chills. No chest pain or palpations. Reports mild lightheadedness and dizziness with harsh coughing. Patient has been following at the wound center for a chronic right ankle wound. He had imaging preformed at Dr. Bell' office to see if he needs any intervention done. Wound is almost healed. He has chronic intermittent lower extremity edema which he reports is unchanged from baseline. He denies abdominal pain, nausea, vomiting, or diarrhea. No urinary symptoms. At the time of my exam, patient is resting in bed in no acute distress. Physical Exam (per Admitting): General Appearance: no apparent distress Head: normocephalic, atraumatic Eyes: normal inspection, sclerae normal ENT: hearing grossly normal Neck: supple, no JVD Respiratory/Chest: no respiratory distress, + decreased breath sounds, + wheezing (scattered throughout all lung davis, inspiratory and expiratory), + pertinent finding (scattered coarse breath sounds) Cardiovascular: regular rate, rhythm, + pertinent finding (trace edema BLLE) Abdomen/GI: normal bowel sounds, non tender, soft Extremities/Musculoskelatal: normal inspection, no calf tenderness Neurologic/Psych: no motor/sensory deficits, alert, normal mood/affect, oriented x 3 Skin: + pertinent finding (excoriated axilla and abdominal folds; chronic venous changes noted to BLLE; small wound noted to the right lateral ankle - no drainage or surrounding erythema) Hospital Course 67 yo M presents with acute hypoxic respiratory failure 1. COPD exacerbation 2/2 CAP with acute hypoxic respiratory failure-direct admission from pulmonary office for ongoing symptoms for 5 days with hypoxia. Dry cough reported which is persistent today. Pt feels overall improved since admission. CXR revealing L basial pneumonia. Denies fevers or chills overnight. Cont Levaquin PO, PO prednisone. Cont Duonebs. Cont oxygen support- transitioned to room air and feeling well x 24 hours with ambulation. 2. RLE wound with excoriation and no central ulceration likely 2/2 venous stasis versus peripheral vascular disease. Follows with wound care as outpatient. Apprec wound care recs while inpatient. Per pt, Ray Ohara spoke with him and will plan to perform vascular procedure on his legs in a couple of weeks as outpatient, once he has improved from a pulmonary standpoint. 3. DMIII-on insulin pump at home. Cont insulin drip for optimal management while inpatient with transition to insulin pump closer to discharge. Spoke with inpatient glycemic pharmacist regarding this plan. 4. Atrial fibrillation-rate controlled with BB and digoxin. Coumadin restarted as given one dose on admission that was not continued yesterday. Trend INR daily. 5. Chronic diastolic dysfunction-appears compensated. Cont Lasix, spironolactone and metolazone. 6. HTN-at goal on current medications. 7. Hypothyroidism-TSH at goal, cont Synthroid 8. SALAS-cont CPAP at night 9. Obesity 10. Reports of one episode of gross hematuria as outpatient. Urine studies were ordered. No microscopic hematuria seen. Follow-up as outpatient PRN. 11. CKD-at baseline. On day of discharge he was afebrile and hemodynamically stable and was tolerating PO. He was mentating and ambulating at baseline and was asymptomatic aside from some residual improving dry cough. He is ambulating well on room air, which is his baseline. He was discharged in stable condition with close PCP followup. Home Health was continued at discharged. Total time spent on discharge = 60 minutes This includes examination of the patient, discharge planning, medication reconciliation, and communication with other providers. Discharge Instructions [facility] [address] [place] [address] Discharge Medical Patient Name: Marcial Andujar Unit Number: [id number] Date of : 1950 Patient Status: Admitted Inpatient Attending Doctor: Marina Freeman DO DI: Medical v4 Discharge Instructions Date of Service Mar 22, 2017. Admission Reason for Admission: Acute Respiratory Insufficiency, Hematuria Discharge Discharge Diagnosis / Problem: CAP, COPD Discharge Goals Goal(s): Prevent Disease Progression Activity Recommendations Activity Limitations: per Instructions/Follow-up section . Instructions / Follow-Up Instructions / Follow-Up Please take all medications as instructed. You will need a follow-up appointment next week with primary care physician. As it is the weekend, we will call you tomorrow regarding the scheduled time for this appointment. A repeat chest xray is recommended in 4-6 weeks to ensure resolution of the pneumonia. Please followup with the wound center and the coumadin clinic as you had previously had plans to do. It was a pleasure taking care of you! Call if you have any questions or problems. You can reach a [facility] hospitalist on duty at [facility] 24 hours a day by calling [phone]. Take care of yourself. DO Shayan Ramon Hospitalist Current Hospital Diet Patient's current hospital diet: AHA Diet (Heart Healthy), Diabetes Type 2 Diet Discharge Diet Recommended Diet: AHA Diet (Heart Healthy), Diabetes Type 2 Diet Procedures Procedures Performed: None. Pending Studies Studies pending at discharge: no Laboratory Results Hemoglobin A1c Test 03/20/17 02:06 Range/Units Estimated Average Glucose 197 mg/dl Hemoglobin A1c 8.5 H 4.5-5.6 % Medical Emergencies . Who to Call and When: Medical Emergencies: If at any time you feel your situation is an emergency, please call 911 immediately. . Non-Emergent Contact Non-Emergency issues call your: Primary Care Provider . . "Provider Documentation" section prepared by Marina Freeman. . VTE Core Measure Inpt VTE Proph given/why not?: Warfarin (Coumadin) Additional Copies To Scotty Jara D.O.
--- NOTE | 2017-03-22 13:07 | PROGRESS NOTE ---
DATE: 03/20/2017 SUBJECTIVE: Mr. Andujar is a 67-year-old man with a complex medical history including atrial fibrillation, hypertension, hyperlipidemia, chronic diastolic heart failure and COPD as well as prior PE, who has previously been seen at the wound clinic for his persistent venous ulcerations. He was last seen in February of 2017. At that time repeat ultrasound was recommended to assess for venous reflux. That study was obtained in the interim, which did show dilated right GSV with some reflux of the SFJ. Since that time he has continued to have lower extremity swelling, right greater than left as well as significant skin discoloration, his prior wounds have healed. He is currently admitted to the hospital in the setting of a COPD exacerbation/pneumonia but is improving on decreasing oxygen requirement. OBJECTIVE: VITAL SIGNS: Temperature 36.5, pulse 57, blood pressure 120/79, he is satting 95% on 3 liters. GENERAL: The patient appeared comfortable in no acute distress. HEENT: Sclerae are anicteric. His oropharynx is clear. LUNGS: He had rhonchorous breath sounds on the left with prolonged expiratory phase. No rales. CARDIAC: Regular with no appreciable murmurs. ABDOMEN: Obese. EXTREMITIES: Warm. He had 2+ lower extremity edema, right greater than left. He had signs of chronic venous stasis with healed ulcerations on the right. NEUROLOGIC: Nonfocal. PSYCHIATRIC: He is alert, oriented and appropriate. LABORATORY DATA: Venous reflux study as discussed above. ASSESSMENT AND PLAN: 1. Chronic venous insufficiency -- CEAP category 5. 2. Longstanding venous ulcerations. 3. Type 2 diabetes. 4. History of prior venous thromboembolism. 5. Atrial fibrillation, on Coumadin. 6. Chronic diastolic heart failure. 7. Chronic obstructive pulmonary disease with exacerbation and pneumonia. Discussed with patient recent findings of venous reflux study. He does have evidence of right GSV dilation with reflux and feel that may benefit from possible right GSV RF ablation. Discussed the benefits, risks, alternatives of the procedure with the patient and he is willing to proceed. We will plan to schedule for sometime in the next several weeks. My office will contact the patient when discharged from the hospital.
[2017-03-22 13:17] VITALS: BP 108/67; PULSE 78; TEMP 36.5; O2SAT 93
[2017-03-22 14:46] VITALS: PULSE 90; O2SAT 89
== END 2017-03-22 14:59 | disposition home health service (06) | DRG 189 ==
LOC: C.2T 18:30 → ENRESERV 03-21 17:17 → C.4E 03-21 18:27
PROVIDERS: ADMIT Internal Medicine; ATTEND Hospitalist
DX: J96.21 Acute and chronic respiratory failure with hypoxia (principal); J18.9 Pneumonia, unspecified organism; J44.0 Chronic obstructive pulmonary disease with (acute) lower respiratory infection; L97.319 Non-pressure chronic ulcer of right ankle with unspecified severity; I50.32 Chronic diastolic (congestive) heart failure; Z68.43 Body mass index [BMI] 50.0-59.9, adult; I13.0 Hypertensive heart and chronic kidney disease with heart failure and stage 1 through stage 4 chronic kidney disease, or unspecified chronic kidney disease; G47.33 Obstructive sleep apnea (adult) (pediatric); I48.91 Unspecified atrial fibrillation; E11.40 Type 2 diabetes mellitus with diabetic neuropathy, unspecified; I87.8 Other specified disorders of veins; E11.22 Type 2 diabetes mellitus with diabetic chronic kidney disease; E03.9 Hypothyroidism, unspecified; F32.9 Major depressive disorder, single episode, unspecified; N18.3 Chronic kidney disease, stage 3 (moderate); M10.9 Gout, unspecified; K21.9 Gastro-esophageal reflux disease without esophagitis; E66.01 Morbid (severe) obesity due to excess calories; Z51.81 Encounter for therapeutic drug level monitoring; Z79.899 Other long term (current) drug therapy; Z79.01 Long term (current) use of anticoagulants; Z79.82 Long term (current) use of aspirin; Z79.4 Long term (current) use of insulin; Z96.41 Presence of insulin pump (external) (internal); Z95.0 Presence of cardiac pacemaker; Z86.711 Personal history of pulmonary embolism; Z82.49 Family history of ischemic heart disease and other diseases of the circulatory system

== ENCOUNTER 2017-04-01 10:42 | Day surgery (SDC) | payer OTHER ==
[~2017-04-01] VITALS: Ht 175.3 cm; Wt 153.0 kg
[2017-04-01] VITALS (12 sets, daily range): BP systolic 103–132; BP diastolic 51–79; PULSE 62–70; TEMP 36.8–37.3; O2SAT 93–96; Ht 175.3 cm; Wt 153.0 kg
[~2017-04-01 10:42] MED LIST changes: +ALBINS INH; +CLOTCRE33 TOP; +FLUT0.15; +FLUT1INH7 INH; +LIDOCAINE HCL 1% 20 ML VIAL ONE; +LIDOCAINE/EPINEPHRINE 1% INJ 50 ML VIAL ONE; +LVQ750 PO; +PRD20 PO; +SODIUM CHLORIDE 0.9% 1000ML IV SCH; -SYMIN160 INH
[2017-04-01] MEDS ORDERED: SODIUM BICARB 8.4% INJ 50 MEQ/50 ML SYR IV ONE (10:59)
[2017-04-01] MEDS ORDERED: OXGN (11:48)
--- NOTE | 2017-04-01 12:01 | History & Physical Bridge Note ---
H&P Re-Evaluation Bridge Note: I have examined the patient, reviewed the History & Physical and in the interval since the performance of the History & Physical I have noted the following changes of clinical significance: No changes noted
--- NOTE | 2017-04-01 12:01 | Procedure Note ---
Pre-Mod Sedation Assessment General Date of Moderate Sedation: Apr 01, 2017. Review Cardiovascular: regular rate, rhythm, no edema Abdomen: normal bowel sounds, non tender Lungs: chest non-tender, lungs clear Airway Class: III Pre-Sedation Airway Assessment Oral Cavity: WNL Able to Visualize Vocal Cords: No Short Thick Neck: Yes Hx of Sleep Apnea: Yes Smoking Status: Never Smoker Mallampati Classification: Class III ASA Classification: Class III Procedure Planning Contraindications-for Mod Sed: None Yes Notes The planned sedation has been discussed with the patient and consent obtained. I have identified the patient, determined the appropriateness of sedation and have assessed the patient immediately prior to the procedure. All medicine(s) and interventions are by my order.
[2017-04-01] MEDS ORDERED: LIDOCAINE HCL 1% 20 ML VIAL INFIL ONE (13:01)
[2017-04-01] MEDS ORDERED: ORM MISCELLANEOUS MED XX ONE (13:31)
--- NOTE | 2017-04-01 13:33 | Procedure Note ---
Post-Mod Sedation Assessment General Date of Moderate Sedation Apr 01, 2017. Vital Signs: Vital Signs Past 12 Hours Date Time Temp Pulse Resp B/P (MAP) Pulse Ox O2 Delivery O2 Flow Rate FiO2 04/01/17 13:30 65 21 121/56 95 Nasal Cannula 4.0 04/01/17 13:25 66 21 125/63 95 Nasal Cannula 4.0 04/01/17 13:20 66 21 122/73 95 Nasal Cannula 4.0 04/01/17 13:15 66 19 132/79 95 Nasal Cannula 4.0 04/01/17 13:10 66 19 130/63 96 Nasal Cannula 4.0 04/01/17 13:05 63 18 128/60 96 Nasal Cannula 4.0 04/01/17 13:00 62 18 114/51 95 Nasal Cannula 4.0 04/01/17 12:42 63 18 103/53 93 Nasal Cannula 4.0 04/01/17 12:19 36.8 70 20 130/69 95 Room Air 04/01/17 11:56 36.8 70 20 130/69 (89) 95 Room Air Review - Discharge Criteria Vital Signs Stable: Yes Alert/Oriented/Conversant: Yes Returned to Baseline Mental St: Yes Nausea Absent/Minimal: Yes Pain/Discomfort/Absent/Minimal: Yes Normal/Baseline Respirations: Yes Active Bleeding?: No Pt Received D/C Instructions: Yes Prescriptions Given: None Specific Proced. D/C Criteria Distal Pulses Present (Cardiac: N/A Groin site assessed-Card Cath: N/A Voided Prior To Discharge: N/A Discharged Patients Adult Escort/Transportation: Yes
--- NOTE | 2017-04-01 13:36 | [facility] Operative Report ---
Operative Report Operative Date Apr 01, 2017. Pre-Operative Diagnosis Venous Insufficiency Post-Operative Diagnosis Same Procedure(s) Performed Right Leg Greater Saphenous Vein Radiofrequency Ablation Surgeon Ray Insole And Outsole Splitter Surgeon(s) None Estimated Blood Loss 5 Findings Dilated right GSV Specimens None Drains None Anesthesia Local Complication(s) None Disposition Recovery Room / PACU Indications Venous insufficiency Venous ulcer Description of Procedure US guided access Right GSV below the knee. Catheter inserted, 3cm from SFJ. 800 ml tumescent injected. US confirmed not in deep system. 5:40, 17 cycles of RFA right GSV. No complications. Patient tolerated well. US confirmed no DVT post procedure. I attest to the content of the Intraoperative Record and any orders documented therein. Any exceptions are noted below.
--- NOTE | 2017-04-01 13:39 | Discharge Instructions ---
Discharge Instructions Procedure Procedure Date: Apr 01, 2017. Reason for Visit: Venous Insufficiency. Discharge Discharge Date: Apr 01, 2017. Discharge Diagnosis: Venous Insufficiency Last Recorded Wt (Kilograms): 153 Anesthesia Post Anesthesia Instructions: If you have had General Anesthesia or IV Sedation: * Do not drive today. * Resume driving when surgeon permits. * Do not make important decisions or sign legal documents today. * Call surgeon for: 1. Temperature elevations greater than 101 degrees F. 2. Uncontrollable pain. 3. Excessive bleeding. 4. Persistent nausea and vomiting. 5. Medication intolerance (nausea, vomiting or rash). * For nausea and vomiting use only clear liquids such as: tea, soda, bouillon until nausea subsides, then gradually increase diet as tolerated. * If you have any concerns or questions, call your surgeon's office. If physician is unavailable and it is an emergency, call 911 or go to the nearest emergency room. Instructions Activity Recommendations: limitations as noted below Recommended Home Diet: resume previous diet Allergies: Coded Allergies: No Known Allergies (Verified , 04/01/17) Follow Up Additional Instructions: Follow instructions on paperwork form Dr. Bell' office. No change to prior medications. SILVA wrap until Thursday or seen by the wound clinic Thursday transition to compression stockings and/or wound clinic recommended dressing. Follow up Ultrasound as scheduled. Any severe pain, present to the emergency room concerned about DVT. Follow-up with: As scheduled Adilene Alonzo Recommendations: Call your doctor if: * Temperature above 101 degrees * Pain not relieved by pain medicine ordered * There is increased drainage or redness from any incision * You have any unanswered questions or concerns. Your Doctors Instructions noted above were prepared by provider Pan Bell. Patient Signature Section: Patient Instructions Signature Page Marcial Andujar Patient (or Guardian) Signature/Date: I have read and understand the instructions given to me by my caregivers. Caregiver/RN/Doctor Signature/Date: The above-named patient and/or guardian has received patient instructions on this date. + Original Patient Signature Page (only) stays with chart. Please make copy for patient.
== END 2017-04-01 14:40 | disposition home or self-care (01) ==
LOC: C.ACU 10:42
PROVIDERS: ATTEND Internal Medicine Interventional Cardiology
DX: I87.2 Venous insufficiency (chronic) (peripheral) (principal); Z79.01 Long term (current) use of anticoagulants; Z79.899 Other long term (current) drug therapy

== ENCOUNTER 2017-08-07 09:59 | Emergency (ER) | payer OTHER ==
[~2017-08-07] VITALS: Ht 175.3 cm; Wt 162.0 kg
[~2017-08-07 09:59] MED LIST changes: -LIDOCAINE HCL 1% 20 ML VIAL ONE; -LIDOCAINE/EPINEPHRINE 1% INJ 50 ML VIAL ONE; -LVQ750 PO; +OXGN; -PRD20 PO; -SODIUM CHLORIDE 0.9% 1000ML IV SCH
[2017-08-07 10:02] VITALS: Ht 175.3 cm; Wt 162.0 kg
[2017-08-07] MEDS ORDERED: SODIUM CHLORIDE 0.9% 1000ML 1,000 ML IV STA (10:49)
--- NOTE | 2017-08-07 10:58 | EMERGENCY ROOM VISIT NOTE ---
History Report prepared by Lalo: Roberto Farfan Under the Supervision of: Dr. Carin Wooten M.D. First contact with patient: 10:48 Chief Complaint: GI ASSESSMENT Stated Complaint: BLOOD IN STOOL- DOCTOR CALLED Nursing Triage Summary: pt to the ED with c/o bright red blood in stool started thursday and has been going on all week c/o left sided abd pain with nausea pt is on coumadin sent over by marek c/o dizziness and SOB History of Present Illness The patient is a 67 year old male who presents to the Emergency Room with complaints of persistent bloody stools that the patient first noticed this past Thursday, 5 days prior to arrival. The patient states that he has noticed "bright red" blood in his stool every time he has had a bowel movement for the past 5 days. The bowel movements have mostly been well formed, with a few soft stools. He denies noticing any black stools. The patient is on Coumadin secondary to a history of pulmonary emboli. The patient notes that he has been dry heaving as well, but has not vomited. 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 A total of 10 systems reviewed and were otherwise negative. 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 Surgical Problems: (1) H/O cardiac radiofrequency ablation (2) S/P cholecystectomy (3) S/p thoracoscopy Family History Hypertension Social History Smoking Status: Never Smoker Alcohol Use: none Drug Use: none Marital Status: Housing Status: lives alone Occupation Status: retired Current/Historical Medications Scheduled Allopurinol (Zyloprim), 300 MG PO QAM Amoxicillin & Pot Clavulanate (Augmentin 875-125 mg), 875 MG PO BID Aspirin (Aspirin Ec), 81 MG PO QAM Atorvastatin (Lipitor), 10 MG PO HS Cholecalciferol (Vitamin D3), 2,000 UNITS PO QAM Colchicine (Colchicine), 0.6 MG PO DAILY Digoxin (Digoxin), 0.125 MG PO BID Duloxetine HCl (Cymbalta), 20 MG PO QAM Fluticasone Furoate-Vilanterol (Breo Ellipta 200-25 Mcg/INH), 1 INHA INH QAM Fluticasone Propionate (Nasal) (Flonase Allergy Relief), 2 SPRAYS NA QAM Furosemide (Lasix), 80 MG PO QAM Home O2 Therapy (Oxygen), 4 LITER NA HS Levothyroxine Sodium (Synthroid), 200 MCG PO QAM Levothyroxine Sodium (Synthroid), 25 MCG PO QAM Lisinopril (Prinivil), 2.5 MG PO QAM Metolazone (Metolazone), 2.5 MG PO SUNDAYS Metoprolol Tartrate (Lopressor) (Lopressor), 100 MG PO BID Metoprolol Tartrate (Lopressor) (Lopressor), 50 MG PO QAM Omeprazole (Prilosec), 20 MG PO QAM Spironolactone (Aldactone), 12.5 MG PO QAM Warfarin Sod (Coumadin), 4 MG PO 4XWK Warfarin Sod (Jantoven), 6 MG PO 3XWK Scheduled PRN Albuterol (Ventolin Hfa), 2 PUFFS INH QID PRN for SOB/Wheezing Albuterol Sulf (Albuterol Sulfate), 1 INHA INH Q4H PRN for SOB/Wheezing Clotrimazole W/ Betamethasone (Lotrisone), 1 APPLN TOP BID PRN for rash Ketoconazole (Ketoconazole), 1 APPLN EXT DAILY PRN for rash Mupirocin (Bactroban), 1 APPLN TOP UD PRN for Sennosides (Senokot), 8.6 MG PO BID PRN for Constipation Miscellaneous Medications Insulin Regular. (Humulin R U-500 (Concentr) Allergies Coded Allergies: No Known Allergies (Verified , 1/26/18) Physical Exam Vital Signs Date Time Temp Pulse Resp B/P (MAP) Pulse Ox O2 Delivery O2 Flow Rate FiO2 08/07/17 13:31 36.8 86 20 120/65 93 Room Air 08/07/17 12:07 61 08/07/17 11:59 36.8 69 20 101/60 92 Room Air 08/07/17 10:02 36.4 84 20 207/94 93 Room Air Physical Exam Vital signs reviewed. General: Well-appearing obese male, in no significant distress. HEENT: No scleral icterus, PERRLA, neck supple. Atraumatic. Cardiovascular: Regular rate and rhythm, no extra sounds. Pulmonary: Clear to auscultation bilaterally, normal work of breathing. Abdomen: Soft, Tenderness in the left lower quadrant, nondistended, positive bowel sounds. Musculoskeletal: Atraumatic, no peripheral edema. Neurologic: Patient awake alert and oriented x 3 Skin: Warm, dry, no rash Rectal: There are several external hemorrhoids, bright red mucous stool appreciated. Hemoccult positive. Medical Decision & Procedures Laboratory Results 08/07/17 10:17 Red Blood Count 4.84, Mean Corpuscular Volume 92.8, Mean Corpuscular Hemoglobin 31.0, Mean Corpuscular Hemoglobin Concent 33.4, Mean Platelet Volume 11.5, Neutrophils (%) (Auto) 61.3, Lymphocytes (%) (Auto) 23.3, Monocytes (%) (Auto) 10.2, Eosinophils (%) (Auto) 4.2, Basophils (%) (Auto) 0.5, Neutrophils # (Auto ) 3.79, Lymphocytes # (Auto) 1.44, Monocytes # (Auto) 0.63, Eosinophils # (Auto ) 0.26, Basophils # (Auto) 0.03 08/07/17 10:17 Test 08/07/17 10:17 08/07/17 11:50 White Blood Count 6.18 K/uL (4.8-10.8) Red Blood Count 4.84 M/uL (4.7-6.1) Hemoglobin 15.0 g/dL (14.0-18.0) Hematocrit 44.9 % (42-52) Mean Corpuscular Volume 92.8 fL (80-100) Mean Corpuscular Hemoglobin 31.0 pg (25-34) Mean Corpuscular Hemoglobin Concent 33.4 g/dl (32-36) Platelet Count 125 K/uL (130-400) Mean Platelet Volume 11.5 fL (7.4-10.4) Neutrophils (%) (Auto) 61.3 % Lymphocytes (%) (Auto) 23.3 % Monocytes (%) (Auto) 10.2 % Eosinophils (%) (Auto) 4.2 % Basophils (%) (Auto) 0.5 % Neutrophils # (Auto) 3.79 K/uL (1.4-6.5) Lymphocytes # (Auto) 1.44 K/uL (1.2-3.4) Monocytes # (Auto) 0.63 K/uL (0.11-0.59) Eosinophils # (Auto) 0.26 K/uL (0-0.5) Basophils # (Auto) 0.03 K/uL (0-0.2) RDW Standard Deviation 46.6 fL (36.4-46.3) RDW Coefficient of Variation 13.8 % (11.5-14.5) Immature Granulocyte % (Auto) 0.5 % Immature Granulocyte # (Auto) 0.03 K/uL (0.00-0.02) Prothrombin Time 27.3 SECONDS (9.0-12.0) Prothromb Time International Ratio 2.7 (0.9-1.1) Activated Partial Thromboplast Time 43.1 SECONDS (21.0-31.0) Partial Thromboplastin Ratio 1.7 Anion Gap 4.0 mmol/L (3-11) Est Creatinine Clear Calc Drug Dose 84.6 ml/min Estimated GFR () 65.2 Estimated GFR (Non- 56.2 BUN/Creatinine Ratio 27.4 (10-20) Calcium Level 9.5 mg/dl (8.5-10.1) Total Bilirubin 1.0 mg/dl (0.2-1) Direct Bilirubin 0.2 mg/dl (0-0.2) Aspartate Amino Transf (AST/SGOT) 27 U/L (15-37) Alanine Aminotransferase (ALT/SGPT) 29 U/L (12-78) Alkaline Phosphatase 74 U/L (45-117) Total Protein 7.8 gm/dl (6.4-8.2) Albumin 3.8 gm/dl (3.4-5.0) Urine Color YELLOW Urine Appearance CLEAR (CLEAR) Urine pH 7.0 (4.5-7.5) Urine Specific [place] 1.018 (1.000-1.030) Urine Protein NEG (NEG) Urine Glucose (UA) NEG (NEG) Urine Ketones NEG (NEG) Urine Occult Blood NEG (NEG) Urine Nitrite NEG (NEG) Urine Bilirubin NEG (NEG) Urine Urobilinogen NEG (NEG) Urine Leukocyte Esterase NEG (NEG) Laboratory results per my review. Medications Administered Medications (Trade) Dose Ordered Sig/Shane Route Start Time Stop Time Status Last Admin Dose Admin Sodium Chloride 1,000 ml @ 125 mls/hr Q8H STAT IV 08/07/17 10:49 08/07/17 14:26 DC 08/07/17 11:18 125 MLS/HR ECG Indication: abdominal pain, other (GI BLeed) Rate (beats per minute): 62 Rhythm: other (Atrial paced ) Findings: LAFB, RBBB, no acute ischemic change, paced rhythm, no ectopy ED Course 1049: Ordered Sodium Chloride 1000 mL @ 125 mL/hr IV. 1052: Past medical records reviewed. The patient was evaluated in room B10. A complete history and physical examination was performed. 1205: Patient has declined CT scan at this time. 1353: Upon reevaluation, the patient appeared to have improvement of his symptoms. I discussed findings with him. He verbalized agreement of the treatment plan. The patient was discharged home. 1540: Although the patient has left the department at this time, Dr Klarissa Pires PCP called me back. We discussed the case and he will follow-up with the patient in the outpatient setting. Medical Decision Differential diagnosis: Etiologies such as diverticulosis, AVM, coagulopathy, colitis, inflammatory bowel disease, malignancy, Coby-Lerma tear, esophagitis, peptic ulcer disease , variceal bleed, gastritis, epistaxis, fissure, hemorrhoids, as well as others were entertained. This patient was evaluated and appeared to be in no significant distress. IV access was obtained and laboratory work was drawn. The patient's H&H is stable. White blood count is normal. He does have some left lower abdominal pain on exam. Patient's INR is 2.7. He takes this medication for multiple reasons including atrial fibrillation and history of DVT. I do not feel comfortable taking the patient off of his Coumadin. At this time a CT scan of the abdomen and pelvis was ordered however the patient was injected with contrast and jumped off the table, stating he was claustrophobic. I spoke with the patient and offered anxiolytic such as lorazepam however he has declined. He does appear to be stable at this time and will be discharged on Augmentin 875 mg twice a day for 7 days for presumed diverticulitis. I did speak with his PCP Dr. Jara he will evaluate the patient in follow-up. Patient will return to the ER for fevers, increased pain or bleeding or any medical concerns. Consults Time Called: 1333 Consulting Physician: Dr. Marek Pires PCP Returned Call: [phone] Although the patient has left the department at this time, Dr Marek Pires PCP called me back. We discussed the case and he will follow-up with the patient in the outpatient setting. Impression Primary Impression: Diverticulitis Additional Impression: Rectal bleeding Scribe Attestation The scribe's documentation has been prepared under my direction and personally reviewed by me in its entirety. I confirm that the note above accurately reflects all work, treatment, procedures, and medical decision making performed by me. Departure Information Dispostion Home / Self-Care Prescriptions Amoxicillin & Pot Clavulanate (Augmentin 875-125 mg) 1 Tab Tab 875 MG PO BID for 7 Days, #14 TAB Prov: Carin Wooten M.D. 08/07/17 Referrals Scotty Jara D.O. (PCP) Forms HOME CARE DOCUMENTATION FORM, IMPORTANT VISIT INFORMATION Patient Instructions [facility] Additional Instructions Diagnosis: Diverticulitis, rectal bleeding Continue your medications as prescribed. Omnicef 300 mg twice a day 7 days. Have your INR repeated on Thursday or Thursday. Return to the emergency department immediately for fever, worsening belly pain or increased bleeding. Maintain a bland diet and drink plenty of clear fluids. Follow-up with your physician next week for reevaluation. Return to the ER for worsening of symptoms or any medical concerns. Problem Qualifiers
[2017-08-07 10:59] LABS: BASO % 0.5 %; BASO ABS # 0.03 K/uL (0-0.2); EOS % 4.2 %; EOS ABS # 0.26 K/uL (0-0.5); HEMATOCRIT 44.9 % (42-52); IG# 0.03 K/uL (0.00-0.02); LYMPH % 23.3 %; LYMPH ABS # 1.44 K/uL (1.2-3.4); MEAN CELL VOLUME 92.8 fL (80-100); MEAN CORPUSCULAR HGB CONC 33.4 g/dl (32-36); MEAN PLATELET VOLUME 11.5 fL (7.4-10.4); MONO % 10.2 %; MONO ABS # 0.63 K/uL (0.11-0.59); NEUT % 61.3 %; NEUT ABS # 3.79 K/uL (1.4-6.5); PLATELET COUNT 125 K/uL (130-400); RED CELL DISTRIBUTION WIDTH CV 13.8 % (11.5-14.5); RED CELL DISTRIBUTION WIDTH SD 46.6 fL (36.4-46.3); WHITE BLOOD COUNT 6.18 K/uL (4.8-10.8)
[2017-08-07 11:04] LABS: INR 2.7 (0.9-1.1); PTT PATIENT 43.1 SECONDS (21.0-31.0)
[2017-08-07 11:08] LABS: ALBUMIN 3.8 gm/dl (3.4-5.0); CALCIUM 9.5 mg/dl (8.5-10.1); CREATININE 1.32 mg/dl (0.60-1.40)
[2017-08-07 11:11] LABS: TOTAL PROTEIN 7.8 gm/dl (6.4-8.2)
[2017-08-07] MEDS ORDERED: OPTIRAY 320 IV PRN (11:30)
[2017-08-07] MEDS ORDERED: CEFD1CAP14 PO (13:29)
[2017-08-07 13:31] VITALS: BP 120/65; PULSE 86; TEMP 36.8; O2SAT 93
[2017-08-07] MEDS ORDERED: AMOX875T PO (13:48)
--- NOTE | 2017-08-07 15:08 | DIAGNOSTIC IMAGING REPORT ---
ADDENDUM In addition, The patient received an IV dosage of 94 cc of Optiray [address] scan that was not performed. Electronically signed by: Anupam Gonzalez M.D. 08/07/2017 3:09 PM Dictated Date/Time: 08/07/2017 3:08 PM ORIGINAL REPORT SAND CARRIER RADIOGRAPH OF THE ABDOMEN CLINICAL HISTORY: Pre-CT planning. The patient headache edge drummer film taken in preparation for an abdominal CT. The patient then declined the abdominal CT scan. FINDINGS: A edge drummer tomogram of the abdomen from a planned CT scan is presented. Correlation is made with abdominal CT dated 03/20/2017. There is no evidence of bowel obstruction. The heart is enlarged and pacemaker leads are noted. IMPRESSION: Abdominal edge drummer radiograph from CT planning. The patient subsequently declined the CT examination. Electronically signed by: Anupam Gonzalez M.D. 08/07/2017 3:06 PM Dictated Date/Time: 08/07/2017 3:04 PM
== END 2017-08-07 13:55 | disposition home or self-care (01) ==
LOC: C.EDB 10:01
DX: K57.92 Diverticulitis of intestine, part unspecified, without perforation or abscess without bleeding (principal); K62.5 Hemorrhage of anus and rectum; K92.1 Melena; I48.91 Unspecified atrial fibrillation; I10 Essential (primary) hypertension; J44.9 Chronic obstructive pulmonary disease, unspecified; E11.9 Type 2 diabetes mellitus without complications; E78.5 Hyperlipidemia, unspecified; K21.9 Gastro-esophageal reflux disease without esophagitis; M10.9 Gout, unspecified; E03.9 Hypothyroidism, unspecified; E66.9 Obesity, unspecified; G47.33 Obstructive sleep apnea (adult) (pediatric); Z79.82 Long term (current) use of aspirin; Z79.01 Long term (current) use of anticoagulants; Z51.81 Encounter for therapeutic drug level monitoring

== ENCOUNTER 2017-10-19 10:07 | Emergency (ER) | payer OTHER ==
[2017-10-19 10:16] VITALS: TEMP 37.2; Ht 175.3 cm
[2017-10-19] MEDS ORDERED: OXYCODONE/ACETAMINOPHEN 5-325 TAB PO STA (10:47)
[2017-10-19] MEDS ORDERED: OXYC-57 PO ×2 (12:54→13:03)
[2017-10-19] MEDS ORDERED: VALA1TAB31 PO (12:54)
[2017-10-19 13:27] VITALS: BP 94/41; PULSE 72; O2SAT 94
--- NOTE | 2017-10-19 13:54 | EMERGENCY ROOM VISIT NOTE ---
History Report prepared by Rosauraibdavis: Ben Christine Under the Supervision of: Dr. Dandre Hinson D.O. First contact with patient: 10:33 Chief Complaint: CHEST PAIN Stated Complaint: CHEST PAIN History of Present Illness The patient is a 67 year old male who presents to the Emergency Room with complaints of constant right-lower chest pain beginning last night. His pain worsened upon waking up this morning. He also complains of right back pain. The patient states that his pain began while laying in bed. His pain is worsened with movement. He has no history of similar symptoms. The patient also complains of nausea, and cough. He has no history of shingles. Source of History: patient Onset: Last night Position: chest (right lower) Timing: constant Modifying Factors (Worsening): movement Associated Symptoms: + cough, + nausea, + back pain (right) Review of Systems See HPI for pertinent positives & negatives. A total of 10 systems reviewed and were otherwise negative. 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 Surgical Problems: (1) H/O cardiac radiofrequency ablation (2) S/P cholecystectomy (3) S/p thoracoscopy Family History Hypertension Social History Smoking Status: Never Smoker Alcohol Use: none Drug Use: none Marital Status: Housing Status: lives alone Occupation Status: retired Current/Historical Medications Scheduled Allopurinol (Zyloprim), 300 MG PO QAM Aspirin (Aspirin Ec), 81 MG PO QAM Atorvastatin (Lipitor), 10 MG PO HS Cholecalciferol (Vitamin D3), 2,000 UNITS PO QAM Colchicine (Colchicine), 0.6 MG PO DAILY Digoxin (Digoxin), 0.125 MG PO BID Duloxetine HCl (Cymbalta), 20 MG PO QAM Fluticasone Furoate-Vilanterol (Breo Ellipta 200-25 Mcg/INH), 1 INHA INH QAM Fluticasone Propionate (Nasal) (Flonase Allergy Relief), 2 SPRAYS NA QAM Furosemide (Lasix), 80 MG PO QAM Home O2 Therapy (Oxygen), 4 LITER NA HS Levothyroxine Sodium (Synthroid), 200 MCG PO QAM Levothyroxine Sodium (Synthroid), 25 MCG PO QAM Lisinopril (Prinivil), 2.5 MG PO QAM Metolazone (Metolazone), 2.5 MG PO SUNDAYS Metoprolol Tartrate (Lopressor) (Lopressor), 100 MG PO BID Metoprolol Tartrate (Lopressor) (Lopressor), 50 MG PO QAM Omeprazole (Prilosec), 20 MG PO QAM Spironolactone (Aldactone), 12.5 MG PO QAM Valacyclovir Hcl (Valtrex), 1 TAB PO TID Warfarin Sod (Coumadin), 4 MG PO 4XWK Warfarin Sod (Jantoven), 6 MG PO 3XWK Scheduled PRN Albuterol (Ventolin Hfa), 2 PUFFS INH QID PRN for SOB/Wheezing Albuterol Sulf (Albuterol Sulfate), 1 INHA INH Q4H PRN for SOB/Wheezing Clotrimazole W/ Betamethasone (Lotrisone), 1 APPLN TOP BID PRN for rash Mupirocin (Bactroban), 1 APPLN TOP UD PRN for Oxycodone/Acetaminophen 5MG/325MG (Percocet 5MG/325MG), 1 TAB PO Q6H PRN for Pain Sennosides (Senokot), 8.6 MG PO BID PRN for Constipation Miscellaneous Medications Insulin Regular. (Humulin R U-500 (Concentr) Allergies Coded Allergies: No Known Allergies (Verified , 08/07/17) Physical Exam Vital Signs Date Time Temp Pulse Resp B/P (MAP) Pulse Ox O2 Delivery O2 Flow Rate FiO2 10/19/17 13:27 72 22 94/41 94 10/19/17 10:44 79 10/19/17 10:16 37.2 86 20 116/68 96 Room Air Physical Exam CONSTITUTIONAL/VITAL SIGNS: Reviewed / noted above. GENERAL: Non-toxic in appearance. INTEGUMENTARY: Warm, dry, and [place]. Macular/vesicular rash noted in the T-5 dermatome on the right. HEAD: Normocephalic. EYES: without scleral icterus or trauma. ENT/OROPHARYNX: clear and moist. LYMPHADENOPATHY/NECK: Is supple without lymphadenopathy or meningismus. RESPIRATORY: Lungs clear and equal. CARDIOVASCULAR: Regular rate and rhythm. GI/ABDOMEN: Soft and nontender. No organomegaly or pulsatile mass. No rebound or guarding. Normal bowel sounds. EXTREMITIES: Warm and well perfused. BACK: No CVA tenderness. NEUROLOGICAL: Intact without focal deficits. PSYCHIATRIC: normal affect. MUSCULOSKELETAL: Normally developed with good muscle tone. Medical Decision & Procedures Medications Administered Medications (Trade) Dose Ordered Sig/Shane Route Start Time Stop Time Status Last Admin Dose Admin Valacyclovir HCl (Valtrex Tab) 1,000 mg NOW ONCE PO 10/19/17 11:00 10/19/17 11:01 DC 10/19/17 11:17 1,000 MG Oxycodone/ Acetaminophen (Percocet 5-325mg Tab) 1 tab NOW STAT PO 10/19/17 10:47 10/19/17 10:49 DC 10/19/17 11:17 1 TAB ECG Per My Interpretation Indication: chest pain Rate (beats per minute): 70 Rhythm: sinus rhythm Findings: PVC, other (No ST elevation. ) ED Course 1035: Previous medical records were reviewed. The patient was evaluated in room A11B. A complete history and physical examination was performed. 1047: Ordered Percocet 5-325 mg Tab PO. 1100: Ordered Valtrex Tab 1000 mg PO. 1300: On reevaluation, the patient is resting comfortably. I discussed the results and findings with the patient. He verbalized agreement of the treatment plan. The patient was discharged home. Medical Decision the differential was considered includes acute myocardial infarction, acute coronary syndrome, myocarditis, pericarditis, pericardial effusions /tamponade, esophageal perforation, thoracic aortic dissection, pulmonary embolism, pneumonia, pneumothorax, pancreatitis, shingles, acute cholecystitis, perforated abdominal viscus. This is a 67-year-old male who presents to the ED with a chief complaint of right sided chest discomfort. The patient's symptoms started last night. He states that his symptoms seem to be worse with laying down and sometimes movement. His vital signs are normal. His physical exam reveals a characteristic rash of shingles in the right T5 or 6 area. An EKG shows a sinus rhythm with a PVC. No acute injury. The patient was told the results. He was started on Valtrex and Percocet. He was discharged on these. Medication Reconcilliation Current Medication List: was personally reviewed by me Blood Pressure Screening Patient's blood pressure: Normal blood pressure Blood pressure disposition: Did not require urgent referral Impression Primary Impression: Shingles Scribe Attestation The scribe's documentation has been prepared under my direction and personally reviewed by me in its entirety. I confirm that the note above accurately reflects all work, treatment, procedures, and medical decision making performed by me. Departure Information Dispostion Home / Self-Care Prescriptions Oxycodone/Acetaminophen 5MG/325MG (PERCOCET 5MG/325MG) Tab 1 TAB PO Q6H Y for Pain, #20 TAB Prov: Dandre Hinson D.O. 10/19/17 Valacyclovir Hcl (VALTREX) 1 Gm Tab 1 TAB PO TID for 7 Days, #21 TAB Prov: Dandre Hinson D.O. 10/19/17 Referrals Scotty Jara D.O. (PCP) Forms Call Back Authorization, HOME CARE DOCUMENTATION FORM, IMPORTANT VISIT INFORMATION Patient Instructions My [facility]
== END 2017-10-19 13:28 | disposition home or self-care (01) ==
LOC: C.EDB 10:11 → C.EDA 13:28
DX: B02.8 Zoster with other complications (principal); R07.9 Chest pain, unspecified; E11.9 Type 2 diabetes mellitus without complications; E03.9 Hypothyroidism, unspecified; G47.33 Obstructive sleep apnea (adult) (pediatric); Z79.82 Long term (current) use of aspirin; Z79.01 Long term (current) use of anticoagulants; Z79.899 Other long term (current) drug therapy; E66.01 Morbid (severe) obesity due to excess calories

== ENCOUNTER → 2018-02-09 | Outpatient (CLI) | payer OTHER ==
[~2018-02-09] MED LIST changes: -NZRCR EXT
--- NOTE | 2018-02-09 19:38 | DIAGNOSTIC IMAGING REPORT ---
HEAD WITHOUT CONTRAST (CT) CLINICAL HISTORY: 67 years-old Male with SYNCOPE AND COLLAPSE. Acute syncope with head trauma TECHNIQUE: Multiple axial CT images of the head were obtained without contrast. A dose lowering technique was utilized adhering to the principles of ALARA. CT DOSE: 773.57 mGy.cm COMPARISON: CT head 09/22/2016. FINDINGS: No acute intracranial hemorrhage, midline shift, intracranial mass, hydrocephalus, territorial ischemia or abnormal extra-axial collection. Cerebral vascular calcifications are noted. The calvarium is intact. The paranasal sinuses, mastoid air cells, and middle ear cavities are clear. Mild soft tissue swelling of the right prefrontal soft tissues without large hematoma or opaque foreign body. IMPRESSION: 1. No acute intracranial abnormality or calvarial fracture. 2. Mild soft tissue swelling of the right prefrontal soft tissues. The above report was generated using voice recognition software. It may contain grammatical, syntax or spelling errors. Electronically signed by: Pk Menchaca M.D. 02/09/2018 7:37 PM Dictated Date/Time: 02/09/2018 7:34 PM
== END | disposition home or self-care (01) ==
LOC: C.CTS 19:11
PROVIDERS: ATTEND Internal Medicine
DX: R55 Syncope and collapse (principal)

== ENCOUNTER → 2018-03-05 | Outpatient (CLI) | payer OTHER ==
[~2018-03-05] MED LIST changes: -CMD4 PO; -FLUT0.15; -METO100T14 PO; +WARF6TAB5 PO
[2018-03-05 11:30] LABS: BLOOD UREA NITROGEN 39 mg/dl (7-18); CALCIUM 9.2 mg/dl (8.5-10.1); CARBON DIOXIDE 28 mmol/L (21-32); CREATININE 1.48 mg/dl (0.60-1.40); GLUCOSE 373 mg/dl (70-99); POTASSIUM 4.2 mmol/L (3.5-5.1); SODIUM 133 mmol/L (136-145)
[2018-03-05 11:38] LABS: HEMOGLOBIN A1C 12.3 % (4.5-5.6)
== END | disposition home or self-care (01) ==
LOC: C.LAB 07:06
PROVIDERS: ATTEND Ophthalmology
DX: Z01.818 Encounter for other preprocedural examination (principal)

== ENCOUNTER 2019-04-26 10:02 | Inpatient (IN) ==
[2019-04-26] MEDS ORDERED: SODIUM CHLORIDE 0.9% 1000ML 500 ML IV ONE (10:18)
--- NOTE | 2019-04-26 10:30 | XRay Report ---
XR chest 1V portable CLINICAL HISTORY: weakness COMPARISON STUDY: 11/10/2018 FINDINGS: The heart is enlarged. There is a left subclavian dual-chamber central venous pacemaker. Th ere is mild pulmonary vascular congestion. There is no lobar consolidation. There are no significant pleural effusions.[ IMPRESSION: 1. Mild pulmonary vascular congestion. No evidence of focal pulmonary consolidation Electronically signed by: Todd Flowers M.D. 04/26/2019 10:28 AM
[2019-04-26 10:49] LABS: Basophils # (auto) 0.02 K/uL (0-0.2); Basophils % (auto) 0.1 %; Hematocrit (blood only) 44.5 % (42-52); Hemoglobin 15.3 g/dL (14.0-18.0); Immature Granulocytes # (auto) 0.06 K/uL (0.00-0.02); Immature Granulocytes % (auto) 0.4 %; Lymphocytes # (auto) 0.73 K/uL (1.2-3.4); Lymphocytes % (auto) 4.7 %; Mean Corpuscular Hemoglobin 31.5 pg (25-34); Mean Corpuscular Hgb Conc 34.4 g/dL (32-36); Mean Corpuscular Volume 91.8 fL (80-100); Mean Platelet Volume 11.2 fL (7.4-10.4); Monocytes # (auto) 1.05 K/uL (0.11-0.59); Monocytes % (auto) 6.8 %; Neutrophils # (auto) 13.67 K/uL (1.4-6.5); Platelet Count 143 K/uL (130-400); RDW Coefficient of Variation 15.2 % (11.5-14.5); RDW Standard Deviation 50.8 fL (36.4-46.3); Red Blood Count 4.85 M/uL (4.7-6.1); White Blood Count 15.53 K/uL (4.8-10.8)
[2019-04-26 10:59] LABS: INR 1.3 (0.9-1.1); Partial Thromboplastin Ratio 1.2; Partial Thromboplastin Time 31.3 Seconds (21.0-31.0); Prothrombin Time 13.5 Seconds (9.0-12.0)
--- NOTE | 2019-04-26 10:59 | Emergency Department Note ---
Entered by Elvi Singh acting as a scribe for Jim Chairez DO History of Present Illness General Chief complaint: Weakness Time Seen by Provider: 04/26/19 10:14 Source: patient and other (nursing staff) History of Present Illness Onset (ago): day(s) (last night) Location: lower extremity Pain Consistency: + other (episode) Quality: + other (weakness) Associated symptoms: + denies other symptoms (abdominal pain, leg swelling), + nausea/vomiting, + shortness of breath (but denies having now) and + other (elevated BSG, increased urinary frequency); no chest pain The patient is a 69 year old male who presents to the Emergency Room with complaints of an episode of weakness starting last night. Per nursing staff, the patient has been sick for the last few days. She states that the patient got up last night to go to the bathroom and ended up vomiting a few times while there. She reports that he then crawled back to bed and while doing so he pulled his insulin pump hose out of the machine. She states that he was too weak to get back into bed so he laid on the floor. She notes that he typically wears Bi-PAP at night, but since he couldnt get back in bed, he couldnt put his Bi-PAP on. Nursing staff states that he lives in assisted living and was found by the todd mckeon who came to check on him this morning. She notes that he was complaining of shortness of breath at that time, but denies it now, although his O2 saturation is at 91%. She notes that his BSG is also 467. The patient complains of nausea and increased urinary frequency. The patient denies chest pain, shortness of breath, abdominal pain, and leg swelling. Home Medications Home Medications Medication Instructions Recorded Confirmed Type digoxin 0.125 mg PO QAM #0 07/13/16 04/26/19 History furosemide 80 mg PO BID #0 07/13/16 04/26/19 History omeprazole 20 mg PO QAM #0 07/13/16 04/26/19 History spironolactone 12.5 mg PO QAM #0 07/13/16 04/26/19 History Humulin R U-500 (Conc) Insulin 1 dose CONTINUOUS SUBCUTANEOUS 09/22/16 04/26/19 History INFUSION DIRECTED #0 colchicine 0.6 mg PO QAM #0 09/22/16 04/26/19 History levothyroxine 200 mcg PO QAM #0 03/08/17 04/26/19 History warfarin [Jantoven] 4 mg PO SUTH #0 tab 02/26/18 04/26/19 History allopurinol 300 mg tablet 300 mg PO QPM 05/11/18 04/26/19 History aspirin 81 mg tablet,delayed 81 mg PO QAM 05/11/18 04/26/19 History release atorvastatin 10 mg tablet 10 mg PO QAM 05/11/18 04/26/19 History metolazone 2.5 mg tablet 2.5 mg PO WK tab 05/11/18 04/26/19 History gabapentin 100 mg PO TID 06/24/18 04/26/19 History levothyroxine 50 mcg PO QAM 06/24/18 04/26/19 History duloxetine 60 mg capsule,delayed 60 mg PO QAM 08/31/18 04/26/19 History release metoprolol tartrate 150 mg PO QAM 11/10/18 04/26/19 History bupropion HCl 150 mg PO QAM 12/29/18 04/26/19 History albuterol sulfate 1 puff INHALATION Q6H PRN 04/26/19 04/26/19 History cholecalciferol (vitamin D3) 2,000 unit PO DAILY 04/26/19 04/26/19 History magnesium oxide 400 mg PO DAILY 04/26/19 04/26/19 History metoprolol tartrate 100 mg PO HS 04/26/19 04/26/19 History nystatin 1 applic TOPICAL BID PRN 04/26/19 04/26/19 History sennosides [senna] 8.6 mg PO BID 04/26/19 04/26/19 History warfarin 8 mg PO MOTUWEFRSA 04/26/19 04/26/19 History Allergies Allergy/AdvReac Type Severity Reaction Status Date / Time No Known Drug Allergies Allergy Verified 04/26/19 10:39 Past Med/Surg History Medical History Closed fracture of thyroid cartilage (Resolved) Chronic anticoagulation (Chronic) Paroxysmal atrial fibrillation (Chronic) Shingles rash (Resolved) Hypertension (Chronic) Diastolic CHF (Chronic) Tachy-sherry syndrome (Chronic) Pulmonary embolism (Resolved) B/L- 5+ years ago Sleep apnea (Chronic) CPAP Atrial fibrillation (Chronic) paroxysmal Hyperlipidemia (Chronic) Depression (Chronic) Diabetes mellitus, type 2 (Chronic) insulin pump Hypothyroidism (Chronic) Osteoarthritis (Chronic) Claustrophobia (Chronic) Interstitial lung disease (Chronic) Morbid obesity (Chronic) Atrial flutter (Chronic) Sarcoidosis (Chronic) possible- evaluated by pulmonary; felt no active sarcoidosis and would not merit steroid therapy given weight/diabetic state. Fatty liver (Chronic) Bifascicular block (Chronic) CKD (chronic kidney disease) stage 3, GFR 30-59 ml/min (Chronic) COPD, moderate (Chronic) Tachy-sherry syndrome (Chronic) Nocturnal hypoxemia (Chronic) Tachycardia induced cardiomyopathy (Chronic) "prior EF of 25% while in aflutter, subsequently normal in NSR" Gout (Chronic) Surgical History Hx of carpal tunnel repair (Chronic) H/O prior ablation treatment (Chronic) History of bronchoscopy (Resolved) Pacemaker (Chronic) Implanted 02/2017 secondary to Sinus node dysfunction/tachy sherry syndrome/3rd degree AVB [employer] Pacer check 12/24/17 History of cholecystectomy (Chronic) History of extraction of renal calculus (Resolved) History of arthroscopic knee surgery (Resolved) History of lung surgery (Resolved) thoracoscopy, right VATS, wedge resection History of umbilical hernia repair (Resolved) History of cataract surgery (Resolved) local anesthesia only per pt H/O cardiac radiofrequency ablation Family History Mother Cancer Social History Preferred Language: [place] Communication Ability: Effective Visual Impairment: No Limitations Hearing Ability: Normal Value Stream Coach Required: No Beliefs That Will Affect Care: None marital status: Current Living Situation: Alone Other Information That Helps Us Care for You: No Feels Safe at Home: Yes Safety Concerns: Feels Safe At This Time Smoking Status: Former smoker Second Hand Exposure: No ; Hx Alcohol Use: No Hx Substance Use: No Review of Systems See HPI for pertinent positives & negatives. and A total of 10 systems reviewed and were otherwise negative Physical Exam Vital Signs Vital Signs - 24 hr 04/26/19 10:21 04/26/19 10:29 Temperature 37.6 C H Temperature Source Oral Sepsis Recent Fever Within 48 Hours No Sepsis New/Unexplained Change in Mental Status No Sepsis Action Taken by Nursing No Action Required Pulse Rate 85 Respiratory Rate 22 Blood Pressure 98/60 L Blood Pressure Mean 72 Pulse Oximetry 91 91 Oxygen Delivery Method Nasal Cannula Nasal Cannula Oxygen Flow Rate 2 GENERAL: Patient is listless but responds to questions appropriately. He is slow to respond but follows commands. EYES: The conjunctivae are clear. The pupils are round and reactive. EARS, NOSE, MOUTH AND THROAT: The nose is without any evidence of any deformity. Mucous members are dry. NECK: The neck is nontender and supple. RESPIRATORY: Diminished breath sounds are noted throughout. There are rales at both bases. CARDIOVASCULAR: Tachycardic and irregular rhythm was noted to auscultation. There is no definite murmur. GASTROINTESTINAL: The abdomen is moderately distended but soft. There is no tenderness guarding or rigidity elicited. MUSCULOSKELETAL/EXTREMITIES: There is no evidence of gross deformity. Full range of motion is noted in the hips and shoulders. SKIN: Venous stasis changes are noted. There is pedal edema bilaterally. NEUROLOGIC: The patient is oriented to person place and situation. Course 1014: Past medical records reviewed. The patient was evaluated in room A2. A complete history and physical exam was performed. 1140: I reevaluated the patient and updated him on his test results. I discussed the treatment plan with him. He verbally agrees and understands. 1146: I discussed the patient's case with Dr. Rod[facility] Hospitalist. He will evaluate the patient for further management. Administered Medications Gabapentin (Neurontin) 100 mg PO TID OFE Stop: 05/26/19 14:59 Last Admin: 04/26/19 15:39 Dose: 100 mg Documented by: [id number] Insulin Human Regular 250 (units/ Sodium Chloride) 250 mls @ 8.6 mls/hr IV .Q24H OFE; Protocol Stop: 05/26/19 12:59 Last Titration: 04/26/19 16:39 Dose: 8.6 units/hr, 8.6 mls/hr Documented by: [id number] Cosigned by: [id number] Titration: 04/26/19 14:45 Dose: 7.2 units/hr, 7.2 mls/hr Documented by: [id number] Cosigned by: [id number] Admin: 04/26/19 14:44 Dose: 7.2 units/hr, 7.2 mls/hr Documented by: [id number] Cosigned by: [id number] Titration: 04/26/19 14:44 Dose: 6 units/hr, 6 mls/hr Documented by: [id number] Cosigned by: [id number] Admin: 04/26/19 13:29 Dose: 6 units/hr, 6 mls/hr Documented by: [id number] Cosigned by: [id number] Heparin Sodium/Dextrose (Heparin Sodium/Dextrose) 25,000 units in 500 mls @ 39 mls/hr IV .[id number] OFE; Protocol Stop: 05/26/19 14:09 Last Admin: 04/26/19 14:56 Dose: 1,950 units/hr, 39 mls/hr Documented by: [id number] Cosigned by: [id number] Potassium Chloride 40 meq/ (Sodium Chloride) 1,020 mls @ 125 mls/hr IV .Q8H10M [facility] Stop: 05/26/19 14:29 Last Admin: 04/26/19 15:00 Dose: Not Given Documented by: [id number] Metoprolol Tartrate (Lopressor) 150 mg PO QAM [facility] Stop: 05/26/19 14:59 Last Admin: 04/26/19 15:39 Dose: 150 mg Documented by: [id number] Warfarin Sodium (Coumadin) 8 mg PO DAILY@1600 [facility] Stop: 05/26/19 15:59 Last Admin: 04/26/19 15:39 Dose: 8 mg Documented by: [id number] Discontinued Medications Heparin Sodium/Dextrose (Heparin Sodium/Dextrose) Confirm Administered Dose 25,000 units IV .STK-MED ONE Stop: 04/26/19 14:25 Last Admin: 04/26/19 14:56 Dose: Not Given Documented by: [id number] Sodium Chloride (Nss 1000ml) 500 mls @ 999 mls/hr IV .Q31M ONE Stop: 04/26/19 10:48 Last Infusion: 04/26/19 12:22 Dose: 0 mls/hr Documented by: [id number] Admin: 04/26/19 11:24 Dose: 999 mls/hr Documented by: [id number] Sodium Chloride (Nss 1000ml) 1,000 mls @ 999 mls/hr IV .Q1H1M ONE Stop: 04/26/19 12:35 Last Infusion: 04/26/19 12:49 Dose: 0 mls/hr Documented by: [id number] Admin: 04/26/19 11:48 Dose: 999 mls/hr Documented by: [id number] Piperacillin Sod/Tazobactam Sod (Zosyn) 4.5 gm in 120 mls @ 240 mls/hr IV NOW ONE Stop: 04/26/19 12:04 Last Infusion: 04/26/19 12:23 Dose: 0 mls/hr Documented by: [id number] Admin: 04/26/19 11:48 Dose: 240 mls/hr Documented by: [id number] Digoxin 125 mcg/ Syringe 10 mls @ 2 mls/min IV NOW STA Stop: 04/26/19 12:21 Last Admin: 04/26/19 12:47 Dose: 2 mls/min Documented by: [id number] Furosemide 80 mg/ Syringe 8 mls @ 4 mls/min IV 1600 ONE Stop: 04/26/19 16:01 Last Admin: 04/26/19 16:02 Dose: 4 mls/min Documented by: [id number] Insulin Human Regular (Novolin R Bolus From Bag) 6 units IV ONE ONE Stop: 04/26/19 13:16 Last Admin: 04/26/19 14:58 Dose: Not Given Documented by: [id number] Miscellaneous (Insulin Protocol Goal Range) 1 ea N/A ONE ONE Stop: 04/26/19 12:51 Last Admin: 04/26/19 14:57 Dose: Not Given Documented by: [id number] Miscellaneous (Insulin Protocol Goal Range) 1 ea N/A ONE ONE Stop: 04/26/19 12:51 Last Admin: 04/26/19 14:57 Dose: Not Given Documented by: [id number] Medical Decision Making Differential Diagnosis Differential Diagnosis includes but is not limited to dehydration, stroke, anemia, hypoglycemia, hyponatremia, hypernatremia, urinary tract infection, pneumonia, bronchitis, sepsis, gastroenteritis, additional abdominal pathology, metabolic abnormalities and infections. Medical Records Attestation: I reviewed the patient's medical records. Home Medications Current Medication List: was personally reviewed by me Laboratory Data Attestation: I reviewed the patient's lab results. Result diagrams: 04/26/19 10:26 04/26/19 15:23 Lab Results 04/26/19 04/26/19 04/26/19 Range/Units 10:26 10:26 10:26 WBC 15.53 H (4.8-10.8) K/uL RBC 4.85 (4.7-6.1) M/uL Hgb 15.3 (14.0-18.0) g/dL POC Hgb (14.0-18.0) g/dl Hct 44.5 (42-52) % POC Hct (42-52) % MCV 91.8 (80-100) fL MCH 31.5 (25-34) pg MCHC 34.4 (32-36) g/dL RDW Std Deviation 50.8 H (36.4-46.3) fL RDW Coeff of Baldo 15.2 H (11.5-14.5) % Plt Count 143 (130-400) K/uL MPV 11.2 H (7.4-10.4) fL Immature Gran % (Auto) 0.4 % Neut % (Auto) 88.0 % Lymph % (Auto) 4.7 % Churchill % (Auto) 6.8 % Eos % (Auto) 0.0 % Baso % (Auto) 0.1 % Immature Gran # (Auto) 0.06 H (0.00-0.02) K/uL Neut # (Auto) 13.67 H (1.4-6.5) K/uL Lymph # (Auto) 0.73 L (1.2-3.4) K/uL Churchill # (Auto) 1.05 H (0.11-0.59) K/uL Eos # (Auto) 0.00 (0-0.5) K/uL Baso # (Auto) 0.02 (0-0.2) K/uL PT 13.5 H (9.0-12.0) Seconds INR 1.3 H (0.9-1.1) APTT 31.3 H (21.0-31.0) Seconds PTT Ratio 1.2 VBG pH (7.36-7.41) VBG pCO2 (38-50) mmHg VBG pO2 mmHg VBG HCO3 mmol/L VBG O2 Saturation % VBG Base Excess mEq/L Barometric Pressure mm/Hg POC Sodium (135-144) mEq/L Sodium 130 L (136-145) mmol/L POC Potassium (3.3-5.0) mEq/L Potassium 3.9 (3.5-5.1) mmol/L POC Chloride (101-112) mEq/L Chloride 90 L (98-107) mmol/L Carbon Dioxide 23 (21-32) mmol/L POC Total CO2 (24-31) mEq/l Anion Gap 16.0 H (3-11) POC Anion Gap (16-25) mmol/L POC BUN (7-18) mg/dl BUN 53 H (7-18) mg/dl Creatinine 2.79 H (0.6-1.4) mg/dl POC Creatinine (0.6-1.3) mg/dl Est Cr Clr Drug Dosing 39.3 ml/min Est GFR ( Amer) 26.0 Est GFR (Non-Af Amer) 22.4 BUN/Creatinine Ratio 19.0 (10-20) Glucose 508 H* (70-99) mg/dl POC Glucose (other) (70-99) mg/dl Lactate (0.4-2.0) mmol/L Calcium 9.8 (8.5-10.1) mg/dl POC Ioniz Calcium Erin (1.12-1.32) mmol/l Magnesium 1.9 (1.8-2.4) mg/dl Total Bilirubin 3.6 H (0.2-1) mg/dl AST 99 H (15-37) U/L ALT 51 (12-78) U/L Alkaline Phosphatase 123 H (45-117) U/L Total Creatine Kinase 1617 H (39-308) U/L CK-MB (CK-2) (0.5-3.6) ng/ml CK/CKMB % Calc Troponin I 0.117 H* (0-0.045) ng/ml Total Protein 7.8 (6.4-8.2) gm/dl Albumin 3.4 (3.4-5.0) gm/dl Globulin 4.4 H (2.5-4.0) gm/dl Albumin/Globulin Ratio 0.8 L (0.9-2) Beta-Hydroxybutyric Acd 14.97 H (0.2-2.81) mg/dl TSH 2.660 (0.300-4.500) uIu/ml Urine Color Urine Appearance (Clear) Urine pH (4.5-7.5) Ur Specific [place] (1.000-1.030) Urine Protein (Negative) Urine Glucose (UA) (Negative) Urine Ketones (Negative) Urine Blood (Negative) Urine Nitrite (Negative) Urine Bilirubin (Negative) Urine Urobilinogen (Negative) Ur Leukocyte Esterase (Negative) Urine WBC (Auto) (0-5) /hpf Urine RBC (Auto) (0-4) /hpf U Hyaline Cast (Auto) (0-5) /lpf U Epithel Cells (Auto) (0-5) /lpf Urine Bacteria (Auto) (Negative) Ur Renal Epithelial Cell Digoxin (0.8-2.0) ng/ml 04/26/19 04/26/19 04/26/19 Range/Units 10:26 10:26 10:49 WBC (4.8-10.8) K/uL RBC (4.7-6.1) M/uL Hgb (14.0-18.0) g/dL POC Hgb 17.0 (14.0-18.0) g/dl Hct (42-52) % POC Hct 50 (42-52) % MCV (80-100) fL MCH (25-34) pg MCHC (32-36) g/dL RDW Std Deviation (36.4-46.3) fL RDW Coeff of Baldo (11.5-14.5) % Plt Count (130-400) K/uL MPV (7.4-10.4) fL Immature Gran % (Auto) % Neut % (Auto) % Lymph % (Auto) % Churchill % (Auto) % Eos % (Auto) % Baso % (Auto) % Immature Gran # (Auto) (0.00-0.02) K/uL Neut # (Auto) (1.4-6.5) K/uL Lymph # (Auto) (1.2-3.4) K/uL Churchill # (Auto) (0.11-0.59) K/uL Eos # (Auto) (0-0.5) K/uL Baso # (Auto) (0-0.2) K/uL PT (9.0-12.0) Seconds INR (0.9-1.1) APTT (21.0-31.0) Seconds PTT Ratio VBG pH (7.36-7.41) VBG pCO2 (38-50) mmHg VBG pO2 mmHg VBG HCO3 mmol/L VBG O2 Saturation % VBG Base Excess mEq/L Barometric Pressure mm/Hg POC Sodium 131 L (135-144) mEq/L Sodium (136-145) mmol/L POC Potassium 4.0 (3.3-5.0) mEq/L Potassium (3.5-5.1) mmol/L POC Chloride 91 L (101-112) mEq/L Chloride (98-107) mmol/L Carbon Dioxide (21-32) mmol/L POC Total CO2 23 L (24-31) mEq/l Anion Gap (3-11) POC Anion Gap 21.0 (16-25) mmol/L POC BUN 48 H (7-18) mg/dl BUN (7-18) mg/dl Creatinine (0.6-1.4) mg/dl POC Creatinine 2.6 H (0.6-1.3) mg/dl Est Cr Clr Drug Dosing ml/min Est GFR ( Amer) Est GFR (Non-Af Amer) BUN/Creatinine Ratio (10-20) Glucose (70-99) mg/dl POC Glucose (other) 521 H* (70-99) mg/dl Lactate 6.6 H* (0.4-2.0) mmol/L Calcium (8.5-10.1) mg/dl POC Ioniz Calcium Erin 1.12 (1.12-1.32) mmol/l Magnesium (1.8-2.4) mg/dl Total Bilirubin (0.2-1) mg/dl AST (15-37) U/L ALT (12-78) U/L Alkaline Phosphatase (45-117) U/L Total Creatine Kinase (39-308) U/L CK-MB (CK-2) 24.8 H (0.5-3.6) ng/ml CK/CKMB % Calc Not Reportable Troponin I (0-0.045) ng/ml Total Protein (6.4-8.2) gm/dl Albumin (3.4-5.0) gm/dl Globulin (2.5-4.0) gm/dl Albumin/Globulin Ratio (0.9-2) Beta-Hydroxybutyric Acd (0.2-2.81) mg/dl TSH (0.300-4.500) uIu/ml Urine Color Urine Appearance (Clear) Urine pH (4.5-7.5) Ur Specific [place] (1.000-1.030) Urine Protein (Negative) Urine Glucose (UA) (Negative) Urine Ketones (Negative) Urine Blood (Negative) Urine Nitrite (Negative) Urine Bilirubin (Negative) Urine Urobilinogen (Negative) Ur Leukocyte Esterase (Negative) Urine WBC (Auto) (0-5) /hpf Urine RBC (Auto) (0-4) /hpf U Hyaline Cast (Auto) (0-5) /lpf U Epithel Cells (Auto) (0-5) /lpf Urine Bacteria (Auto) (Negative) Ur Renal Epithelial Cell Digoxin (0.8-2.0) ng/ml 04/26/19 04/26/19 04/26/19 Range/Units 10:57 11:01 11:50 WBC (4.8-10.8) K/uL RBC (4.7-6.1) M/uL Hgb (14.0-18.0) g/dL POC Hgb (14.0-18.0) g/dl Hct (42-52) % POC Hct (42-52) % MCV (80-100) fL MCH (25-34) pg MCHC (32-36) g/dL RDW Std Deviation (36.4-46.3) fL RDW Coeff of Baldo (11.5-14.5) % Plt Count (130-400) K/uL MPV (7.4-10.4) fL Immature Gran % (Auto) % Neut % (Auto) % Lymph % (Auto) % Churchill % (Auto) % Eos % (Auto) % Baso % (Auto) % Immature Gran # (Auto) (0.00-0.02) K/uL Neut # (Auto) (1.4-6.5) K/uL Lymph # (Auto) (1.2-3.4) K/uL Churchill # (Auto) (0.11-0.59) K/uL Eos # (Auto) (0-0.5) K/uL Baso # (Auto) (0-0.2) K/uL PT (9.0-12.0) Seconds INR (0.9-1.1) APTT (21.0-31.0) Seconds PTT Ratio VBG pH 7.43 H (7.36-7.41) VBG pCO2 37 L (38-50) mmHg VBG pO2 34 mmHg VBG HCO3 24 mmol/L VBG O2 Saturation 64.1 % VBG Base Excess 0.2 mEq/L Barometric Pressure 736.1 mm/Hg POC Sodium (135-144) mEq/L Sodium (136-145) mmol/L POC Potassium (3.3-5.0) mEq/L Potassium (3.5-5.1) mmol/L POC Chloride (101-112) mEq/L Chloride (98-107) mmol/L Carbon Dioxide (21-32) mmol/L POC Total CO2 (24-31) mEq/l Anion Gap (3-11) POC Anion Gap (16-25) mmol/L POC BUN (7-18) mg/dl BUN (7-18) mg/dl Creatinine (0.6-1.4) mg/dl POC Creatinine (0.6-1.3) mg/dl Est Cr Clr Drug Dosing ml/min Est GFR ( Amer) Est GFR (Non-Af Amer) BUN/Creatinine Ratio (10-20) Glucose (70-99) mg/dl POC Glucose (other) (70-99) mg/dl Lactate (0.4-2.0) mmol/L Calcium (8.5-10.1) mg/dl POC Ioniz Calcium Erin (1.12-1.32) mmol/l Magnesium (1.8-2.4) mg/dl Total Bilirubin (0.2-1) mg/dl AST (15-37) U/L ALT (12-78) U/L Alkaline Phosphatase (45-117) U/L Total Creatine Kinase (39-308) U/L CK-MB (CK-2) (0.5-3.6) ng/ml CK/CKMB % Calc Troponin I (0-0.045) ng/ml Total Protein (6.4-8.2) gm/dl Albumin (3.4-5.0) gm/dl Globulin (2.5-4.0) gm/dl Albumin/Globulin Ratio (0.9-2) Beta-Hydroxybutyric Acd (0.2-2.81) mg/dl TSH (0.300-4.500) uIu/ml Urine Color Yellow Urine Appearance Cloudy A (Clear) Urine pH 5.0 (4.5-7.5) Ur Specific [place] 1.027 (1.000-1.030) Urine Protein 1+ H (Negative) Urine Glucose (UA) 3+ H (Negative) Urine Ketones Trace H (Negative) Urine Blood 2+ H (Negative) Urine Nitrite Negative (Negative) Urine Bilirubin Negative (Negative) Urine Urobilinogen Negative (Negative) Ur Leukocyte Esterase Negative (Negative) Urine WBC (Auto) 10-30 H (0-5) /hpf Urine RBC (Auto) 0-4 (0-4) /hpf U Hyaline Cast (Auto) 10-30 H (0-5) /lpf U Epithel Cells (Auto) >30 H (0-5) /lpf Urine Bacteria (Auto) Negative (Negative) Ur Renal Epithelial Cell Not Reportable Digoxin 0.4 L (0.8-2.0) ng/ml Imaging Data Radiologist's Impression: Radiology results as stated below per my review and the radiologist's interpretation: XR chest 1V portable CLINICAL HISTORY: weakness COMPARISON STUDY: 11/10/2018 FINDINGS: The heart is enlarged. There is a left subclavian dual-chamber central venous pacemaker. There is mild pulmonary vascular congestion. There is no lobar consolidation. There are no significant pleural effusions.[ IMPRESSION: 1. Mild pulmonary vascular congestion. No evidence of focal pulmonary consolidation Electronically signed by: Todd Flowers M.D. 04/26/2019 10:28 AM ECG Data Attestation: I personally reviewed and interpreted this ECG as follows: Indication: weakness Rate (beats per minute): 141 Rhythm: atrial fibrillation Findings: + Q waves (inferior) and + RBBB; no PVC Comparison ECG Date: from (11/10/2018) Change: the following changes noted (a fib has replaced paced rhythm) Blood Pressure Blood Pressure Findings: Low blood pressure Blood Pressure Disposition: further management by hospitalist MIRNA Ashby The patient is a 69-year-old male who presented to the emergency department for an evaluation of generalized weakness. The patient's insulin pump came out of his abdomen earlier today. He is been feeling weak and noticing polyuria and polydipsia. The patient's laboratory studies appear to be consistent with DKA. He was treated with IV fluids in the emergency department but he also appears to have some degree of volume overload. He was also started on IV antibiotics for possible infection. The patient does have an elevated white blood cell count. I discussed the patient's laboratory and radiographic studies with him. Because of his symptoms and the degree of his laboratory abnormalities I discussed his case with the on-call [facility] hospitalist group. They have agreed to evaluate the patient in the emergency department for further management disposition. The patient was reevaluated multiple times. On subsequent reevaluation he was somewhat improved. He continued to have rapid atrial fibrillation. He was treated with IV digoxin. Impression & Plan DKA (diabetic ketoacidoses), Rhabdomyolysis, Hyperglycemia, Lactic acidosis, Hypoxia, Abnormal ECG, Elevated troponin, Atrial fibrillation with RVR Discharge Plan Visit Data *Final* Discharge Date/Time: 04/26/19 13:41 Chief Complaint: Weakness ED Provider: Jim Chairez Discharge Problem: DKA (diabetic ketoacidoses), Rhabdomyolysis, Hyperglycemia, Lactic acidosis, Hypoxia, Abnormal ECG, Elevated troponin, Atrial fibrillation with RVR Patient Disposition: Admitted As Inpatient Discharge Instructions Interventions: ED Discharge Assessment Last Done: 04/26/19 13:41 The scribe's documentation has been prepared under my direction and personally reviewed by me in its entirety. I confirm that the note above accurately reflects all work, treatment, procedures, and medical decision making performed by me.
[2019-04-26 11:01] LABS: iSTAT Creatinine 2.6 mg/dl (0.6-1.3); iSTAT Ionized Calcium 1.12 mmol/l (1.12-1.32)
[2019-04-26 11:13] LABS: Base Excess VBG 0.2 mEq/L; Oxygen Saturation VBG 64.1 %; pH VBG 7.43 (7.36-7.41)
[2019-04-26 11:26] LABS: Albumin Globulin Ratio 0.8 (0.9-2); Albumin Level 3.4 gm/dl (3.4-5.0); Beta-Hydroxybutyrate 14.97 mg/dl (0.2-2.81); Bilirubin,Total 3.6 mg/dl (0.2-1); Calcium 9.8 mg/dl (8.5-10.1); Creatinine Clr Calc Pharmacy 39.3 ml/min; Est GFR (Non-African American) 22.4; Globulin 4.4 gm/dl (2.5-4.0); Magnesium 1.9 mg/dl (1.8-2.4); Potassium 3.9 mmol/L (3.5-5.1); Total Protein 7.8 gm/dl (6.4-8.2)
[2019-04-26] MEDS ORDERED: PIPERACILL/TAZOBAC CONSULT ACTIVE PRN (11:35)
[2019-04-26] MEDS ORDERED: SODIUM CHLORIDE 0.9% 1000ML 1,000 ML IV ONE (11:35)
[2019-04-26] MEDS ORDERED: PIPERACILLIN/TAZOBACTAM 4.5 GM/120 ML BAG IV ONE (11:35)
[2019-04-26 11:44] LABS: Thyroid Stimulating Hormone 2.66 uIu/ml (0.300-4.500); Troponin I 0.117 ng/ml (0-0.045)
[2019-04-26 12:00] LABS: Appearance Urine Cloudy (Clear); Bacteria Urine Automated Negative (Negative); Bilirubin Urine Negative (Negative); Blood Urine 2+ (Negative); Color Urine Yellow; Epithelial Cell Urine Auto >30 /lpf (0-5); Glucose Urine UA 3+ (Negative); Ketones Urine Trace (Negative); Leukocyte Esterase Urine Negative (Negative); Nitrite Urine Negative (Negative); Protein Urine 1+ (Negative); RBC Urine Automated 0-4 /hpf (0-4); Specific Gravity Urine 1.027 (1.000-1.030); Urobilinogen Urine Negative (Negative)
[2019-04-26 12:16] LABS: Creatine Kinase MB 24.8 ng/ml (0.5-3.6)
[2019-04-26] MEDS ORDERED: DIGOXIN 125 MCG in SYRINGE 9.5 ML IV STA (12:17)
[2019-04-26] MEDS ORDERED: SEVERE STRESS LEVEL ONE ×2 (12:50)
[2019-04-26] MEDS ORDERED: INSULIN PROTOCOL GOAL RANGE ONE ×2 (12:50)
[2019-04-26] MEDS ORDERED: INSULIN REGULAR 250 UNITS in SODIUM CHLORIDE 0.9% 247.5 ML IV SCH (12:50)
[2019-04-26] MEDS ORDERED: GLUCOSE 10 TABS/TUBE PO PRN (13:15)
[2019-04-26] MEDS ORDERED: GLUCAGON FOR INJ 1 MG VIAL IM PRN (13:15)
[2019-04-26] MEDS ORDERED: GLUCOSE 40% GEL 15 GM TUBE PO PRN (13:15)
[2019-04-26] MEDS ORDERED: CARBOHYDRATES FOR HYPOGLYCEMIA PO PRN (13:15)
[2019-04-26] MEDS ORDERED: DEXTROSE 50% 50 ML SYRINGE IV PRN (13:15)
[2019-04-26] MEDS ORDERED: NovoLIN-R BOLUS FROM BAG IV ONE (13:15)
[2019-04-26] MEDS: INSULIN REGULAR 250 UNITS in SODIUM CHLORIDE 0.9% 247.5 ML IV SCH ×2 (13:29→14:44)
[2019-04-26] MEDS ORDERED: ACETAMINOPHEN 325 MG TAB PO PRN (14:10)
[2019-04-26] MEDS ORDERED: Heparin IV Standard *NO* Bolus IV SCH (14:15)
--- NOTE | 2019-04-26 14:29 | History & Physical Report ---
Date of Service April 26, 2019 History of Present Illness Primary Care Provider: Scotty Jara DO Allergies Allergy/AdvReac Type Severity Reaction Status Date / Time No Known Drug Allergies Allergy Verified 04/26/19 10:39 Home Medications Home Medications Medication Instructions Recorded Confirmed Type digoxin 0.125 mg PO QAM #0 07/13/16 04/26/19 History furosemide 80 mg PO BID #0 07/13/16 04/26/19 History omeprazole 20 mg PO QAM #0 07/13/16 04/26/19 History spironolactone 12.5 mg PO QAM #0 07/13/16 04/26/19 History Humulin R U-500 (Conc) Insulin 1 dose CONTINUOUS SUBCUTANEOUS 09/22/16 04/26/19 History INFUSION DIRECTED #0 colchicine 0.6 mg PO QAM #0 09/22/16 04/26/19 History levothyroxine 200 mcg PO QAM #0 03/08/17 04/26/19 History warfarin [Jantoven] 4 mg PO SUTH #0 tab 02/26/18 04/26/19 History allopurinol 300 mg tablet 300 mg PO QPM 05/11/18 04/26/19 History aspirin 81 mg tablet,delayed 81 mg PO QAM 05/11/18 04/26/19 History release atorvastatin 10 mg tablet 10 mg PO QAM 05/11/18 04/26/19 History metolazone 2.5 mg tablet 2.5 mg PO WK tab 05/11/18 04/26/19 History gabapentin 100 mg PO TID 06/24/18 04/26/19 History levothyroxine 50 mcg PO QAM 06/24/18 04/26/19 History duloxetine 60 mg capsule,delayed 60 mg PO QAM 08/31/18 04/26/19 History release metoprolol tartrate 150 mg PO QAM 11/10/18 04/26/19 History bupropion HCl 150 mg PO QAM 12/29/18 04/26/19 History albuterol sulfate 1 puff INHALATION Q6H PRN 04/26/19 04/26/19 History cholecalciferol (vitamin D3) 2,000 unit PO DAILY 04/26/19 04/26/19 History magnesium oxide 400 mg PO DAILY 04/26/19 04/26/19 History metoprolol tartrate 100 mg PO HS 10/15/19 10/15/19 History nystatin 1 applic TOPICAL BID PRN 04/26/19 04/26/19 History sennosides [senna] 8.6 mg PO BID 04/26/19 04/26/19 History warfarin 8 mg PO MOTUWEFRSA 04/26/19 04/26/19 History Past Med/Surg History Medical History Pulmonary embolism (Resolved) B/L- 5+ years ago Sleep apnea (Chronic) CPAP Atrial fibrillation (Chronic) paroxysmal Hyperlipidemia (Chronic) Depression (Chronic) Diabetes mellitus, type 2 (Chronic) insulin pump Hypothyroidism (Chronic) Osteoarthritis (Chronic) Claustrophobia (Chronic) Interstitial lung disease (Chronic) Morbid obesity (Chronic) Atrial flutter (Chronic) Sarcoidosis (Chronic) possible- evaluated by pulmonary; felt no active sarcoidosis and would not merit steroid therapy given weight/diabetic state. Fatty liver (Chronic) Bifascicular block (Chronic) CKD (chronic kidney disease) stage 3, GFR 30-59 ml/min (Chronic) COPD, moderate (Chronic) Tachy-sherry syndrome (Chronic) Nocturnal hypoxemia (Chronic) Tachycardia induced cardiomyopathy (Chronic) "prior EF of 25% while in aflutter, subsequently normal in NSR" Gout (Chronic) Surgical History History of bronchoscopy (Resolved) Pacemaker (Chronic) Implanted 02/2017 secondary to Sinus node dysfunction/tachy sherry syndrome/3rd degree AVB [employer] Pacer check 12/24/17 History of cholecystectomy (Chronic) History of extraction of renal calculus (Resolved) History of arthroscopic knee surgery (Resolved) History of lung surgery (Resolved) thoracoscopy, right VATS, wedge resection History of umbilical hernia repair (Resolved) History of cataract surgery (Resolved) local anesthesia only per pt H/O cardiac radiofrequency ablation Hx of carpal tunnel repair Family History Mother Cancer Social History Preferred Language: Wolof Communication Ability: Effective Visual Impairment: No Limitations Hearing Ability: Normal Road Inspector Required: No Beliefs That Will Affect Care: None marital status: Current Living Situation: Alone Other Information That Helps Us Care for You: No Feels Safe at Home: Yes Safety Concerns: Feels Safe At This Time Smoking Status: Former smoker Second Hand Exposure: No ; Hx Alcohol Use: No Hx Substance Use: No Results & Data Vital Signs (Past 12 Hours) Vital Signs Temp Pulse Pulse Resp BP BP Pulse Ox 04/26/19 13:32 120 H 20 139/80 92 04/26/19 12:47 135 H 04/26/19 10:29 91 04/26/19 10:21 37.6 C H 85 22 98/60 L 91 Code Status & VTE Plan VTE Prophylaxis Plan VTE Prophylaxis will be ordered: Yes
[2019-04-26] MEDS ORDERED: POTASSIUM CHLORIDE 40 MEQ in SODIUM CHLORIDE 0.9% 1000ML 1,000 ML IV SCH (14:30)
[2019-04-26] MEDS: HEPARIN 25000 UNIT/500 ML D5W IV ONE ×2 (14:43→14:56)
[2019-04-26] MEDS ORDERED: ETOMIDATE 2 MG/ML 20 ML VIAL IV ONE (14:55)
[2019-04-26] MEDS: HEPARIN SODIUM/DEXTROSE 25,000 UNITS/500 ML BAG IV SCH (14:56)
[2019-04-26] MEDS ORDERED: METOPROLOL TARTRATE 50 MG TAB PO SCH (15:00)
[2019-04-26 15:07] LABS: BUN Creatinine Ratio 18.6 (10-20); Calcium 10.1 mg/dl (8.5-10.1); Creatinine Clr Calc Pharmacy 39.7 ml/min; Est GFR (African American) 26.3; Est GFR (Non-African American) 22.7
--- NOTE | 2019-04-26 15:11 | XRay Report ---
XR chest 1V portable CLINICAL HISTORY: shortness of breath COMPARISON STUDY: Chest CT November [id number]. Chest radiograph April 26, 2019 at 10:11 AM. FINDINGS: A dual-lead left subclavian pacemaker is noted. There is moderate enlargement of the cardia c silhouette appears increased from prior exam. This may be technical. Patient is rotated. No pneumot horax or pleural effusion is noted. Pulmonary edema has developed. IMPRESSION: 1. Interval development of pulmonary edema. 2. Interval increase in size of the cardiac silhouette which is probably technical. Electronically signed by: Basil Hills M.D. 04/26/2019 3:09 PM
[2019-04-26] MEDS: GABAPENTIN 100 MG CAP PO SCH ×2 (15:39→21:28)
--- NOTE | 2019-04-26 15:49 | History & Physical Report ---
Date of Service April 26, 2019 Assessment & Plan (1) Hyperglycemia: (2) Diabetes mellitus, type 2: -Admit to telemetry -Patient presenting from home with generalized weakness and frequent falls for the past 3 days; insulin pump became disconnected at some point in time throughout the night and patient was unable to reconnect -In the ED, glucose 521 -Does not appear to be in DKA with normal pH and bicarbonate however does have mildly elevated anion gap at 16 with elevated beta hydroxybutyric acid -IV insulin per protocol -Needs aggressive IV fluid resuscitation however need to watch volume status secondary to pulmonary edema noted on CXR and history of CHF -Sepsis may be contributing to hyperglycemia as well (3) Lactic acidosis: POSSIBLE SEPSIS -On presentation: Lactic acid 6.6, WBC 15 K, tachycardic; afebrile, BP stabl e/borderline low -Potential sources: Aspiration pneumonia (reported some nausea/vomiting) or biliary source given elevated LFTs (patient is S/P cholecystectomy) -No clear infiltrate on CXR -Check RUQ US -S/P Zosyn in the ED, will continue with to cover above; check MRSA nasal swab and add Vanco if positive -IVF, monitoring volume status closely due to pulmonary edema on CXR/history of CHF -Blood and urine cultures (4) Atrial fibrillation with RVR: -On presentation heart rate in the 140s with some improvement after IVF and IV dig -Elevated heart rate likely secondary to DKA, dehydration, possible sepsis -Continue home doses of dig and metoprolol -Anticoagulated on Coumadin, INR 1.3; will start IV heparin bridge given high [id number] and history of PE (5) Elevated troponin: -Likely type II OH due to dehydration, A. fib with RVR, possible sepsis -No reports of chest pain -Continue cycle cardiac enzymes -Resting echo -Aspirin, statin, beta-flo (6) CKD (chronic kidney disease) stage 3, GFR 30-59 ml/min: (7) Acute kidney injury superimposed on CKD: -Baseline creatinine ~1.3 -Creatinine 2.7 today -Likely prerenal due to dehydration, possible sepsis -Hold home furosemide and spironolactone -IVF, monitor volume status closely (8) Decubitus ulcer: -Present on admission -Unstageable/DTI noted to right buttock -Wound care nurse (9) History of pulmonary embolism: -Typically on Coumadin -IV heparin bridge as above (10) Tachycardia induced cardiomyopathy: (11) Chronic diastolic CHF (congestive heart failure): -Echo 11/2018: Mildly reduced EF, grade 1 diastolic dysfunction -Holding diuretics due to [place] ROSA -Monitor volume status closely (12) Pacemaker: (13) Tachy-sherry syndrome: -Consider pacemaker interrogation (14) COPD, moderate: -No signs of acute exacerbation -No wheezing on exam (15) Hypothyroidism: -Continue levothyroxine (16) SALAS (obstructive sleep apnea): -CPAP as per home settings (17) DVT prophylaxis: -On IV heparin as above History of Present Illness Chief Complaint: Generalized weakness Primary Care Provider: Scotty Jara DO 69-year-old male who presents to the ED for evaluation of generalized weakness. Patient lives home alone with assistance from [facility] program. Patient reports that 3 days ago, he developed tremors weakness. He reports that he has had multiple falls. He denies any loss of consciousness. He has not taken his medications for the past few days. Last evening, his insulin pump became disconnected at some point and patient was unable to reattach it. His cocoa powder mixer operator came to the house today and found him in bed where he was looking very ill and ambulance was called and patient was brought to the ED for further evaluation. While patient denied nausea and vomiting to me, he has admitted to some nausea and vomiting with other providers. No abdominal pain. He reports he typically does weigh himself on a daily basis however has not done so in the past few days due to his illness. Prior to that, weights been stable. He denies any worsening lower extremity edema. Denies chest pain shortness of breath. He has been feeling lightheaded and dizzy however no syncopal event. Denies fevers and chills. No urinary symptoms. Upon arrival to the ER, patient was found to be in A. fib with RVR with heart rates in the 140s. BP initially mildly hypotensive at 98/60. Labs show WBC 15 K, creatinine 2.7, lactic acid 6.6, glucose 521, elevated LFTs, troponin 0.117. Patient was given 1.5 L NSS, IV Zosyn, IV digoxin. Allergies Allergy/AdvReac Type Severity Reaction Status Date / Time No Known Drug Allergies Allergy Verified 10/15/19 10:39 Home Medications Home Medications Medication Instructions Recorded Confirmed Type digoxin 0.125 mg PO QAM #0 07/13/16 04/26/19 History furosemide 80 mg PO BID #0 07/13/16 04/26/19 History omeprazole 20 mg PO QAM #0 07/13/16 04/26/19 History spironolactone 12.5 mg PO QAM #0 07/13/16 04/26/19 History Humulin R U-500 (Conc) Insulin 1 dose CONTINUOUS SUBCUTANEOUS 09/22/16 04/26/19 History INFUSION DIRECTED #0 colchicine 0.6 mg PO QAM #0 09/22/16 04/26/19 History levothyroxine 200 mcg PO QAM #0 03/08/17 04/26/19 History warfarin [Jantoven] 4 mg PO SUTH #0 tab 02/26/18 04/26/19 History allopurinol 300 mg tablet 300 mg PO QPM 05/11/18 04/26/19 History aspirin 81 mg tablet,delayed 81 mg PO QAM 05/11/18 04/26/19 History release atorvastatin 10 mg tablet 10 mg PO QAM 05/11/18 04/26/19 History metolazone 2.5 mg tablet 2.5 mg PO WK tab 05/11/18 04/26/19 History gabapentin 100 mg PO TID 06/24/18 04/26/19 History levothyroxine 50 mcg PO QAM 06/24/18 04/26/19 History duloxetine 60 mg capsule,delayed 60 mg PO QAM 08/31/18 04/26/19 History release metoprolol tartrate 150 mg PO QAM 11/10/18 04/26/19 History bupropion HCl 150 mg PO QAM 12/29/18 04/26/19 History albuterol sulfate 1 puff INHALATION Q6H PRN 04/26/19 04/26/19 History cholecalciferol (vitamin D3) 2,000 unit PO DAILY 04/26/19 04/26/19 History magnesium oxide 400 mg PO DAILY 04/26/19 04/26/19 History metoprolol tartrate 100 mg PO HS 04/26/19 04/26/19 History nystatin 1 applic TOPICAL BID PRN 04/26/19 04/26/19 History sennosides [senna] 8.6 mg PO BID 04/26/19 04/26/19 History warfarin 8 mg PO MOTUWEFRSA 04/26/19 04/26/19 History Past Med/Surg History Medical History Closed fracture of thyroid cartilage (Resolved) Chronic anticoagulation (Chronic) Paroxysmal atrial fibrillation (Chronic) Shingles rash (Resolved) Hypertension (Chronic) Diastolic CHF (Chronic) Tachy-sherry syndrome (Chronic) Pulmonary embolism (Resolved) B/L- 5+ years ago Sleep apnea (Chronic) CPAP Atrial fibrillation (Chronic) paroxysmal Hyperlipidemia (Chronic) Depression (Chronic) Diabetes mellitus, type 2 (Chronic) insulin pump Hypothyroidism (Chronic) Osteoarthritis (Chronic) Claustrophobia (Chronic) Interstitial lung disease (Chronic) Morbid obesity (Chronic) Atrial flutter (Chronic) Sarcoidosis (Chronic) possible- evaluated by pulmonary; felt no active sarcoidosis and would not merit steroid therapy given weight/diabetic state. Fatty liver (Chronic) Bifascicular block (Chronic) CKD (chronic kidney disease) stage 3, GFR 30-59 ml/min (Chronic) COPD, moderate (Chronic) Tachy-sherry syndrome (Chronic) Nocturnal hypoxemia (Chronic) Tachycardia induced cardiomyopathy (Chronic) "prior EF of 25% while in aflutter, subsequently normal in NSR" Gout (Chronic) Surgical History Hx of carpal tunnel repair (Chronic) H/O prior ablation treatment (Chronic) History of bronchoscopy (Resolved) Pacemaker (Chronic) Implanted 02/2017 secondary to Sinus node dysfunction/tachy sherry syndrome/3rd degree AVB [employer] Pacer check 12/24/17 History of cholecystectomy (Chronic) History of extraction of renal calculus (Resolved) History of arthroscopic knee surgery (Resolved) History of lung surgery (Resolved) thoracoscopy, right VATS, wedge resection History of umbilical hernia repair (Resolved) History of cataract surgery (Resolved) local anesthesia only per pt H/O cardiac radiofrequency ablation Family History Mother Cancer Social History Preferred Language: Irish Communication Ability: Effective Visual Impairment: No Limitations Hearing Ability: Normal Sack Cleaner Required: No Beliefs That Will Affect Care: None marital status: Current Living Situation: Alone Other Information That Helps Us Care for You: No Feels Safe at Home: Yes Safety Concerns: Feels Safe At This Time Smoking Status: Former smoker Second Hand Exposure: No ; Hx Alcohol Use: No Hx Substance Use: No Review of Systems Review of Systems: ROS per HPI, all other systems reviewed and negative Physical Exam Constitutional: WD/WN, vitals as above + ill appearing and + obese; no acute distress Eyes: PERRL, conjunctivae normal, anicteric sclerae ENMT: Ears: no external ear abnormality Nose: no external nose abnormality Mouth: + dry oral mucous membranes Respiratory: normal respiratory effort; no respiratory distress Auscultation: + diminished lung sounds Cardiovascular: Rate/Rhythm: + tachycardic and + irregularly irregular Vessels: normal peripheral pulses Extremities: + edema (+1-2 BLE) Gastrointestinal (Abdomen): normal bowel sounds, soft, nontender, no hepatosplenomegaly Musculoskeletal: no cyanosis or clubbing, extremities motor strength 5/5 Skin: no rashes, warm and dry Unstageable/DTI decubitus ulcer noted to right buttock; chronic venous changes BLE Neurologic: PERRL, EOMI, accommodation nl, no face palsy, no dysarthria Psychiatric: A+Ox3, euthymic affect Results & Data Vital Signs (Past 12 Hours) Vital Signs Temp Pulse Pulse Resp BP BP Pulse Ox 04/26/19 15:33 143 H 34 H 98 04/26/19 15:00 37.2 C 138 H 116/90 94 04/26/19 13:32 120 H 20 139/80 92 04/26/19 12:47 135 H 04/26/19 10:29 91 04/26/19 10:21 37.6 C H 85 22 98/60 L 91 Laboratory Results Short CBC 04/26/19 Range/Units 10: WBC 15.53 H (4.8-10.8) K/uL Hgb 15.3 (14.0-18.0) g/dL Hct 44.5 (42-52) % Plt Count 143 (130-400) K/uL BMP 04/26/19 04/26/19 04/26/19 10:26 14:24 15:23 Sodium 130 L 132 L Potassium 3.9 3.7 Chloride 90 L 92 L Carbon Dioxide 23 26 BUN 53 H 51 H Creatinine 2.79 H 2.76 H Glucose 508 H* 352 H* Calcium 9.8 10.1 Cardiac Enzymes 04/26/19 04/26/19 Range/Units 10:26 10:26 Total Creatine Kinase 1617 H (39-308) U/L CK-MB (CK-2) 24.8 H (0.5-3.6) ng/ml Troponin I 0.117 H* (0-0.045) ng/ml Liver Function 04/26/19 Range/Units 10:26 Total Bilirubin 3.6 H (0.2-1) mg/dl AST 99 H (15-37) U/L ALT 51 (12-78) U/L Alkaline Phosphatase 123 H (45-117) U/L Albumin 3.4 (3.4-5.0) gm/dl Urine 04/26/19 Range/Units 11:50 Urine Color Yellow Urine Appearance Cloudy A (Clear) Urine pH 5.0 (4.5-7.5) Ur Specific [place] 1.027 (1.000-1.030) Urine Protein 1+ H (Negative) Urine Glucose (UA) 3+ H (Negative) Diagnostic Findings CXR IMPRESSION: 1. Mild pulmonary vascular congestion. No evidence of focal pulmonary consolidation Code Status & VTE Plan Code Status Patient is a full code as per my discussion with him. VTE Prophylaxis Plan VTE Prophylaxis will be ordered: Yes Supervising Physician Co-Signing Physician Notes Patient seen in ED. Care coordinated with RAO Sutton. 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
[2019-04-26] MEDS ORDERED: WARFARIN SOD 4 MG TAB PO SCH (16:00)
[2019-04-26] MEDS ORDERED: FUROSEMIDE 80 MG in SYRINGE 0 ML IV ONE (16:00)
[2019-04-26 16:05] LABS: Base Excess VBG 2.9 mEq/L; HCO3 VBG 29 mmol/L; PCO2 VBG 48 mmHg (38-50); PO2 VBG 27 mmHg
[2019-04-26 16:06] LABS: Oxygen Saturation VBG < 60.0 %
--- NOTE | 2019-04-26 16:07 | Communication Note ---
Date of Service: April 26, 2019 HISTORY: Record reviewed. Patient interviewed and examined. Care coordinated with RAO Sutton. Please refer to her documentation for details of patient's history under separate H&P. Briefly, 69 YO male with history of DM type 2 on insulin pump, atrial fibrillation, cardiomyopathy attributed to tachycardia, sleep apnea, pulmonary embolism, possible sarcoidosis, COPD, chronic resp failure on home O2 + BiPAP or CPAP, CKD, and other problems. Presented to ED with elevated blood sugars. Insulin pump apparently became disconnected during the night. Had at least 1 episode of nausea and vomiting with some coughing after the emesis. No abdominal pain. No urinary symptoms. EXAM: General- adult male, appears to be acutely ill ENT- oral mucosa dry Lungs- tachypneic; exam limited, but grossly clear Cardiovascular- distant heart sounds, irregular, tachycardic; no murmur appreciated; no gallop; examination of neck veins limited; 1-2+ pretibial edema Abdomen- obese, + bowel sounds, soft, nontender Extremities- no cyanosis; no calf tenderness Neuro- alert, oriented Skin- warm & dry; chronic venous stasis changes lower extremities DATA: 04/26/19 10:26 Na 130, K 3.9, Cl 90, CO2 23, BUN 53, creatinine 2.79, glucose 508. Total BR 3.6, AST 99, ALT 51, alk phos 123. AG 16. BHB 14.97. Troponin 0.117. Lactate 6.6. Other lab studies as noted. Chest x-ray reviewed and demonstrated cardiomegaly, pulmonary edema, no apparent infiltrates. EKG performed at 10:17 reviewed and demonstrated AF at 140/min / minute, RBBB, left anterior fascicular block, [id number]'s. ASSESSMENT AND PLAN: Hyperglycemic emergency, ? DKA. Serum glucose 508. Type 2 diabetic on insulin pump. AG 16 and BHB elevated. May or may not have DKA. Management of hyperglycemic emergency per protocol. Received IV fluids in ED. Watch fluid status in light of apparent pulmonary edema on CXR. Check Hgb A1C. Consult diabetes education team. ? precipitating factor(s)- disconnection of insulin pump, possible sepsis, possible acute coronary syndrome could be contributing. Chronic AF with RVR. Rate control with digoxin and beta flo as tolerated. INR low. Titrate warfarin. Bridge anticoagulation with IV heparin in light of (1) elevated troponin and (2) history of PE. Elevated serum troponin. Denies chest pain. Elevated troponin could be secondary to acute coronary syndrome, tachyarrhythmia, sepsis, metabolic abnormalities. Continue ASA. IV heparin. Continue metoprolol. Check serial cardiac markers. Check echo. Consult Cardiology. Chronic resp failure. Chronic respiratory failure on home O2 and CPAP or BiPAP. ? compliance Appears to be tachypneic, but denies SOB. Oxygenation appears to be at approximate baseline. CXR shows pulmonary edema, no apparent infiltrates. Continue supplemental O2. BiPAP HS + PRN. Pulmonary edema. Chest x-ray shows pulmonary edema. History of systolic CHF associated with tachyarrhythmia. Monitor fluid status- titrate fluids / diuretics. Check f/u echo. Acute kidney injury. Serum creatinine 2.79 compared to baseline of 1.45. Treat underlying problems. Follow. Possible sepsis Serum lactate 6.6. May or may not be septic- hyperglycemic emergency may be affecting sepsis parameters. Had some nausea and vomiting. Consider aspiration pneumonia, although no apparent infiltrates on initial CXR. Abnormal LFT's. S/P cholecystectomy. Consider choledocholithiasis and/or cholangitis. Check US RUQ. No urinary symptoms. Blood cultures obtained. Received broad spectrum IV antibiotic coverage with piperacillin / tazobactam. Serum lactate > 6, but not appropriate to try for fluid resuscitation goal of 30 ml/kg because of pulmonary edema on CXR. Follow serum lactates. Please refer to ADONIS Holt's documentation for discussion of other issues. ADDENDUM @ 16:10: Patient more tachypneic after receiving IV fluids. IV furosemide and BiPAP ordered. Serum lactate remains elevated with repeat of 6.3. Serum procalcitonin elevated. ADONIS Holt discussed case with [facility]. Arrangements being made for transfer to ICU for further management.
[2019-04-26] MEDS ORDERED: INSULIN ASPART 100 UNITS/ML 3 ML PEN SC SCH (16:30)
--- NOTE | 2019-04-26 16:56 | Critical Care Consultation ---
Date of Consultation April 26, 2019 Assessment & Plan (1) Admitted to intensive care unit: Reason Critically Ill: Elevated BSG requiring insulin gtt, Possible sepsis, Afib w/ RVR, requiring I&D for buttock abscess drainage NEURO ICU CAM: NEGATIVE CV Afib w/ RVR- likely 2/2 DKA, dehydration, possible sepsis Continue home doses of dig and metoprolol Anticoagulated on Coumadin, INR 1.3; started on IV heparin bridge 2/2 high [id number] and history of PE Trial of IV Cardizem, if successful then gtt Elevated Trop- likely demand 2/2 DKA, dehydration, possible sepsis Cont trend ECHO Pending Tachycardia- likely 2/2 DKA, significant acute renal failure, borderline septic shock and respiratory distress Cards do not believe his heart rate needs to be treated at this time other than treating the underlying causes Appreciate Cardiology recommendations HLD, HTN, CAD- Cont home Aspirin, statin, beta-flo CHF- ECHO November 2018: Mildly reduced EF, grade 1 diastolic dysfunction. As below, holding home diuretics due to [place] ROSA PULM CXR- Mild pulmonary vascular congestion. Repeat showed interval development of pulmonary edema BiPAP ordered. On home O2 COPD- stable SALAS- CPAP HS ABD/GI No acute concerns /RENAL CKD III, GFR 30-59 ml/min AL[place] ROSA- Baseline creatinine ~1.3. Cr 2.7 on admit Likely 2/2 dehydration, possible sepsis Hold home furosemide and spironolactone ENDO DM2- Elevated BSG 2/2 insulin pump being disconnected overnight. BSG 521 on admit Normal pH and bicarb, elevated AG 16 and b-hydroxybutyric acid 15 ICU Hyperglycemic protocol- insulin gtt right now IVF with KCl at 125. Will watch volume status 2/2 pulmonary edema and h/o CHF A1C pending Hypothyroidism- Cont levothyroxine ID Concern for Sepsis-Lactic acid 6.6, WBC 15 K, tachycardic; afebrile, BP low- normal on admit. Serum procalcitonin elevated. Etiology unclear- aspiration PNA vs biliary (h/o cholecystectomy) vs likely buttock abscess CXR- No evidence of focal pulmonary consolidation Elevated LFT- Liver U/S- pending Cont IV Zosyn/Vanc Blood and urine cultures- pending Cont trend LA Pt to undergo sx for Diabetic ulcer of right buttock HEME Stable H/H. No concern for acute bleeding Trend Daily CBC's LINES: PIVx3, L IJ CVC DVT Prophylaxis: Heparin FULL CODE DISPO: ICU Supervising Physician Co-Signing Physician Notes Patient seen and examined on multiple occasions. Stent to amount of time was spent evaluating, stabilizing coordinating care for this critically ill patient. Agree with assessment and plan as noted by the FP resident. I was asked to evaluate this patient by the internal medicine service for hypoxemic respiratory failure requiring BiPAP and DKA. History is summarized above. This 69-year-old male was brought to the emergency room with weakness. He was found to be in DKA which was initially assumed to be secondary to his insulin pump being disconnected. He was also in acute renal failure with rhabdomyolysis and had elements of septic shock with elevated white blood cell count, temperature, and significant leukocytosis. I assessed the patient on the floor and given his multiple medical issues requested to be transferred to the intensive care unit. Blood gases obtained on the floor had been somewhat reassuring. He had received Zosyn empirically in the emergency room. On arrival to the ICU we placed an arterial line which are equal blood gases and hemodynamic monitoring. During her assessment in the ICU we rolled the patient and he was found to have a 4 to 5 cm black eschar on the right buttock extending up towards the rectum. There was significant induration palpable. Vancomycin was added to his antibiotic regiment. I consulted general surgery who was kind enough to present to the ICU to evaluate the patient. They agreed that the patient needed debridement and it was unclear based on external assessment how deep the potential infection ensued and whether or not there was evidence of underlying myonecrosis. Given his elevated CPK and lactic acidosis, this may be a deeper seeded infection. Anesthesia was consulted and I reviewed the case with them and the general surgeons. We elected to proceed with surgical intervention semi-urgently. The patient was intubated and a central line was initiated here in the ICU. An orogastric tube was placed. These tubes were verified with chest x-ray to be in good position. The patient was handed off to the anesthesia team and to the general surgery team to go to the OR. We will assume critical care once he returns from the OR. Impression: 69-year-old male with morbid obesity diabetes admitted with DKA, A. fib with RVR, acute renal failure, and lactic acidosis with evidence of severe sepsis. I suspect the source is likely related to the potential indurated abscess. Recommendations: 1. Severe sepsis: Suspect source is related to soft tissue infection. We will proceed with I&D. Cultures will be obtained in the OR. Continue anabiotic's in the form of Zosyn and vancomycin for now. He may require vasopressors and certainly could clinically worsen prior to improvement. 2. Acute renal failure: Suspect ATN and hypoperfusion. I believe the patient may be somewhat on the dry side. Judicious fluids will be administered. May trend with CVP assessment or central venous oxygen saturation. Patient's body habitus precludes renal ultrasound but doubt obstruction. Urine electrolytes may be beneficial to calculate fractional excretion of sodium or fractional excretion of urea. 3. Lactic acidosis: Secondary to hypoperfusion and sepsis. We will continue to trend over time. Hopefully will improve with source control and appropriate antimicrobial therapy. 4. DKA: Elevated beta hydroxybutyrate. We will continue insulin infusion. Insulin infusion will need to be continued pending clearance of ketones. May need to add glucose to his IV fluids to maintain euglycemia. 5. A. fib with RVR: Patient's blood pressure should allow for initiation of beta-flo. Will use metoprolol and if it drip as needed transition to esmolol. Discussed with cardiology and appreciate their input. Doubt the patient is having an ischemic event and suspect troponin is related to enzyme leak from sepsis. Heparin may be appropriate for A. fib once the patient does not require additional procedures and is at decreased risk of bleeding. 6. Will address enteral nutrition once stabilized from a surgical standpoint. 7. Patient is critically ill. No family accompanies the patient. 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 Patient lives home alone with assistance from [employer] [facility] program. Patient reports that 3 days ago, he developed tremors weakness. He reports that he has had multiple falls. He denies any loss of consciousness. He has not taken his medications for the past few days. Last evening, his insulin pump became disconnected at some point and patient was unable to reattach it. His ward clerk came to the house today and found him in bed where he was looking very ill and ambulance was called and patient was brought to the ED for further evaluation. While patient denied nausea and vomiting to me, he has admitted to some nausea and vomiting with other providers. No abdominal pain. He reports he typically does weigh himself on a daily basis however has not done so in the past few days due to his illness. Prior to that, weights been stable. He denies any worsening lower extremity edema. Denies chest pain shortness of breath. He has been feeling lightheaded and dizzy however no syncopal event. Denies fevers and chills. No urinary symptoms. Upon arrival to the ER, patient was found to be in A. fib with RVR with heart rates in the 140s. BP initially mildly hypotensive at 98/60. Labs show WBC 15 K, creatinine 2.7, lactic acid 6.6, glucose 521, elevated LFTs, troponin 0.117. Patient was given 1.5 L NSS, IV Zosyn, IV digoxin. Chest x-ray demonstrated cardiomegaly, pulmonary edema, no apparent infiltrates. EKG demonstrated AF at 140/min / minute, RBBB, left anterior fascicular block, NSSTTWA's. Allergies Allergy/AdvReac Type Severity Reaction Status Date / Time No Known Drug Allergies Allergy Verified 04/26/19 10:39 Home Medications Home Medications Medication Instructions Recorded Confirmed Type digoxin 0.125 mg PO QAM #0 07/13/16 04/26/19 History furosemide 80 mg PO BID #0 07/13/16 04/26/19 History omeprazole 20 mg PO QAM #0 07/13/16 04/26/19 History spironolactone 12.5 mg PO QAM #0 07/13/16 04/26/19 History Humulin R U-500 (Conc) Insulin 1 dose CONTINUOUS SUBCUTANEOUS 09/22/16 04/26/19 History INFUSION DIRECTED #0 colchicine 0.6 mg PO QAM #0 09/22/16 04/26/19 History levothyroxine 200 mcg PO QAM #0 03/08/17 04/26/19 History warfarin [Jantoven] 4 mg PO SUTH #0 tab 02/26/18 04/26/19 History allopurinol 300 mg tablet 300 mg PO QPM 05/11/18 04/26/19 History aspirin 81 mg tablet,delayed 81 mg PO QAM 05/11/18 04/26/19 History release atorvastatin 10 mg tablet 10 mg PO QAM 05/11/18 04/26/19 History metolazone 2.5 mg tablet 2.5 mg PO WK tab 05/11/18 04/26/19 History gabapentin 100 mg PO TID 06/24/18 04/26/19 History levothyroxine 50 mcg PO QAM 06/24/18 04/26/19 History duloxetine 60 mg capsule,delayed 60 mg PO QAM 08/31/18 04/26/19 History release metoprolol tartrate 150 mg PO QAM 11/10/18 04/26/19 History bupropion HCl 150 mg PO QAM 12/29/18 04/26/19 History albuterol sulfate 1 puff INHALATION Q6H PRN 04/26/19 04/26/19 History cholecalciferol (vitamin D3) 2,000 unit PO DAILY 04/26/19 04/26/19 History magnesium oxide 400 mg PO DAILY 04/26/19 04/26/19 History metoprolol tartrate 100 mg PO HS 04/26/19 04/26/19 History nystatin 1 applic TOPICAL BID PRN 04/26/19 04/26/19 History sennosides [senna] 8.6 mg PO BID 04/26/19 04/26/19 History warfarin 8 mg PO [id number] 04/26/19 04/26/19 History Patient History Medical History Closed fracture of thyroid cartilage (Resolved) Chronic anticoagulation (Chronic) Paroxysmal atrial fibrillation (Chronic) Shingles rash (Resolved) Hypertension (Chronic) Diastolic CHF (Chronic) Tachy-sherry syndrome (Chronic) Pulmonary embolism (Resolved) B/L- 5+ years ago Sleep apnea (Chronic) CPAP Atrial fibrillation (Chronic) paroxysmal Hyperlipidemia (Chronic) Depression (Chronic) Diabetes mellitus, type 2 (Chronic) insulin pump Hypothyroidism (Chronic) Osteoarthritis (Chronic) Claustrophobia (Chronic) Interstitial lung disease (Chronic) Morbid obesity (Chronic) Atrial flutter (Chronic) Sarcoidosis (Chronic) possible- evaluated by pulmonary; felt no active sarcoidosis and would not merit steroid therapy given weight/diabetic state. Fatty liver (Chronic) Bifascicular block (Chronic) CKD (chronic kidney disease) stage 3, GFR 30-59 ml/min (Chronic) COPD, moderate (Chronic) Tachy-sherry syndrome (Chronic) Nocturnal hypoxemia (Chronic) Tachycardia induced cardiomyopathy (Chronic) "prior EF of 25% while in aflutter, subsequently normal in NSR" Gout (Chronic) Surgical History Hx of carpal tunnel repair (Chronic) H/O prior ablation treatment (Chronic) History of bronchoscopy (Resolved) Pacemaker (Chronic) Implanted 02/2017 secondary to Sinus node dysfunction/tachy sherry syndrome/3rd degree AVB [employer] Pacer check 12/24/17 History of cholecystectomy (Chronic) History of extraction of renal calculus (Resolved) History of arthroscopic knee surgery (Resolved) History of lung surgery (Resolved) thoracoscopy, right VATS, wedge resection History of umbilical hernia repair (Resolved) History of cataract surgery (Resolved) local anesthesia only per pt H/O cardiac radiofrequency ablation Family History Mother Cancer Social History Preferred Language: Macedonian Communication Ability: Effective Visual Impairment: No Limitations Hearing Ability: Normal Financial Systems Director Required: No Beliefs That Will Affect Care: None marital status: Current Living Situation: Alone Other Information That Helps Us Care for You: No Feels Safe at Home: Yes Safety Concerns: Feels Safe At This Time Smoking Status: Former smoker Second Hand Exposure: No ; Hx Alcohol Use: No Hx Substance Use: No Review of Systems Review of Systems: All systems reviewed & are unremarkable except as noted in HPI & below Physical Exam Constitutional: + ill appearing and + morbidly obese ENMT: external ear and nose normal, oropharynx normal Respiratory: + tachypneic Auscultation: lungs clear to auscultation bilaterally Cardiovascular: Rate/Rhythm: + tachycardic and + irregularly irregular Gastrointestinal (Abdomen): normal bowel sounds, soft, nontender, no hepatosplenomegaly Skin: no rashes, warm and dry Lymphatic: chronic venous stasis changes LE Results & Data Vital Signs (Past 12 Hours) Vital Signs Temp Pulse Pulse Resp BP BP Pulse Ox 04/26/19 15:33 143 H 34 H 98 04/26/19 15:00 37.2 C 138 H 116/90 94 04/26/19 13:32 120 H 20 139/80 92 04/26/19 12:47 135 H 04/26/19 10:29 91 04/26/19 10:21 37.6 C H 85 22 98/60 L 91 Laboratory Results Laboratory Results - last 24 hr 04/26/19 04/26/19 04/26/19 10:26 10:26 10:26 WBC 15.53 H RBC 4.85 Hgb 15.3 POC Hgb Hct 44.5 POC Hct MCV 91.8 MCH 31.5 MCHC 34.4 RDW Std Deviation 50.8 H RDW Coeff of Baldo 15.2 H Plt Count 143 MPV 11.2 H Immature Gran % (Auto) 0.4 Neut % (Auto) 88.0 Lymph % (Auto) 4.7 [place] % (Auto) 6.8 Eos % (Auto) 0.0 Baso % (Auto) 0.1 Immature Gran # (Auto) 0.06 H Neut # (Auto) 13.67 H Lymph # (Auto) 0.73 L [place] # (Auto) 1.05 H Eos # (Auto) 0.00 Baso # (Auto) 0.02 PT 13.5 H INR 1.3 H APTT 31.3 H PTT Ratio 1.2 ABG pH ABG pCO2 ABG pO2 ABG HCO3 ABG O2 Saturation ABG Base Excess Sam Test VBG pH VBG pCO2 VBG pO2 VBG HCO3 VBG O2 Saturation VBG Base Excess Barometric Pressure Oxygen Given POC Sodium Sodium 130 L POC Potassium Potassium 3.9 POC Chloride Chloride 90 L Carbon Dioxide 23 POC Total CO2 Anion Gap 16.0 H POC Anion Gap POC BUN BUN 53 H Creatinine 2.79 H POC Creatinine Est Cr Clr Drug Dosing 39.3 Est GFR ( Amer) 26.0 Est GFR (Non-Af Amer) 22.4 BUN/Creatinine Ratio 19.0 Glucose 508 H* POC Glucose POC Glucose (other) Lactate Calcium 9.8 POC Ioniz Calcium Erin Magnesium 1.9 Total Bilirubin 3.6 H AST 99 H ALT 51 Alkaline Phosphatase 123 H Total Creatine Kinase 1617 H CK-MB (CK-2) CK/CKMB % Calc Troponin I 0.117 H* Total Protein 7.8 Albumin 3.4 Globulin 4.4 H Albumin/Globulin Ratio 0.8 L Beta-Hydroxybutyric Acd 14.97 H Procalcitonin TSH 2.660 Urine Color Urine Appearance Urine pH Ur Specific [place] Urine Protein Urine Glucose (UA) Urine Ketones Urine Blood Urine Nitrite Urine Bilirubin Urine Urobilinogen Ur Leukocyte Esterase Urine WBC (Auto) Urine RBC (Auto) U Hyaline Cast (Auto) U Epithel Cells (Auto) Urine Bacteria (Auto) Ur Renal Epithelial Cell Nasal Screen MRSA (PCR) Digoxin 04/26/19 04/26/19 04/26/19 10:26 10:26 10:49 WBC RBC Hgb POC Hgb 17.0 Hct POC Hct 50 MCV MCH MCHC RDW Std Deviation RDW Coeff of Baldo Plt Count MPV Immature Gran % (Auto) Neut % (Auto) Lymph % (Auto) [place] % (Auto) Eos % (Auto) Baso % (Auto) Immature Gran # (Auto) Neut # (Auto) Lymph # (Auto) [place] # (Auto) Eos # (Auto) Baso # (Auto) PT INR APTT PTT Ratio ABG pH ABG pCO2 ABG pO2 ABG HCO3 ABG O2 Saturation ABG Base Excess Sam Test VBG pH VBG pCO2 VBG pO2 VBG HCO3 VBG O2 Saturation VBG Base Excess Barometric Pressure Oxygen Given POC Sodium 131 L Sodium POC Potassium 4.0 Potassium POC Chloride 91 L Chloride Carbon Dioxide POC Total CO2 23 L Anion Gap POC Anion Gap 21.0 POC BUN 48 H BUN Creatinine POC Creatinine 2.6 H Est Cr Clr Drug Dosing Est GFR ( Amer) Est GFR (Non-Af Amer) BUN/Creatinine Ratio Glucose POC Glucose POC Glucose (other) 521 H* Lactate 6.6 H* Calcium POC Ioniz Calcium Erin 1.12 Magnesium Total Bilirubin AST ALT Alkaline Phosphatase Total Creatine Kinase CK-MB (CK-2) 24.8 H CK/CKMB % Calc Not Reportable Troponin I Total Protein Albumin Globulin Albumin/Globulin Ratio Beta-Hydroxybutyric Acd Procalcitonin TSH Urine Color Urine Appearance Urine pH Ur Specific [place] Urine Protein Urine Glucose (UA) Urine Ketones Urine Blood Urine Nitrite Urine Bilirubin Urine Urobilinogen Ur Leukocyte Esterase Urine WBC (Auto) Urine RBC (Auto) U Hyaline Cast (Auto) U Epithel Cells (Auto) Urine Bacteria (Auto) Ur Renal Epithelial Cell Nasal Screen MRSA (PCR) Digoxin 04/26/19 04/26/19 04/26/19 10:57 11:01 11:50 WBC RBC Hgb POC Hgb Hct POC Hct MCV MCH MCHC RDW Std Deviation RDW Coeff of Baldo Plt Count MPV Immature Gran % (Auto) Neut % (Auto) Lymph % (Auto) [place] % (Auto) Eos % (Auto) Baso % (Auto) Immature Gran # (Auto) Neut # (Auto) Lymph # (Auto) [place] # (Auto) Eos # (Auto) Baso # (Auto) PT INR APTT PTT Ratio ABG pH ABG pCO2 ABG pO2 ABG HCO3 ABG O2 Saturation ABG Base Excess Sam Test VBG pH 7.43 H VBG pCO2 37 L VBG pO2 34 VBG HCO3 24 VBG O2 Saturation 64.1 VBG Base Excess 0.2 Barometric Pressure 736.1 Oxygen Given POC Sodium Sodium POC Potassium Potassium POC Chloride Chloride Carbon Dioxide POC Total CO2 Anion Gap POC Anion Gap POC BUN BUN Creatinine POC Creatinine Est Cr Clr Drug Dosing Est GFR ( Amer) Est GFR (Non-Af Amer) BUN/Creatinine Ratio Glucose POC Glucose POC Glucose (other) Lactate Calcium POC Ioniz Calcium Erin Magnesium Total Bilirubin AST ALT Alkaline Phosphatase Total Creatine Kinase CK-MB (CK-2) CK/CKMB % Calc Troponin I Total Protein Albumin Globulin Albumin/Globulin Ratio Beta-Hydroxybutyric Acd Procalcitonin TSH Urine Color Yellow Urine Appearance Cloudy A Urine pH 5.0 Ur Specific [place] 1.027 Urine Protein 1+ H Urine Glucose (UA) 3+ H Urine Ketones Trace H Urine Blood 2+ H Urine Nitrite Negative Urine Bilirubin Negative Urine Urobilinogen Negative Ur Leukocyte Esterase Negative Urine WBC (Auto) 10-30 H Urine RBC (Auto) 0-4 U Hyaline Cast (Auto) 10-30 H U Epithel Cells (Auto) >30 H Urine Bacteria (Auto) Negative Ur Renal Epithelial Cell Not Reportable Nasal Screen MRSA (PCR) Digoxin 0.4 L 04/26/19 04/26/19 04/26/19 13:03 14:24 14:24 WBC RBC Hgb POC Hgb Hct POC Hct MCV MCH MCHC RDW Std Deviation RDW Coeff of Baldo Plt Count MPV Immature Gran % (Auto) Neut % (Auto) Lymph % (Auto) [place] % (Auto) Eos % (Auto) Baso % (Auto) Immature Gran # (Auto) Neut # (Auto) Lymph # (Auto) [place] # (Auto) Eos # (Auto) Baso # (Auto) PT INR APTT PTT Ratio ABG pH ABG pCO2 ABG pO2 ABG HCO3 ABG O2 Saturation ABG Base Excess Sam Test VBG pH VBG pCO2 VBG pO2 VBG HCO3 VBG O2 Saturation VBG Base Excess Barometric Pressure Oxygen Given POC Sodium Sodium 132 L POC Potassium Potassium POC Chloride Chloride 92 L Carbon Dioxide 26 POC Total CO2 Anion Gap 14.0 H POC Anion Gap POC BUN BUN 51 H Creatinine 2.76 H POC Creatinine Est Cr Clr Drug Dosing 39.7 Est GFR ( Amer) 26.3 Est GFR (Non-Af Amer) 22.7 BUN/Creatinine Ratio 18.6 Glucose 352 H* POC Glucose 451 H* POC Glucose (other) Lactate 6.3 H* Calcium 10.1 POC Ioniz Calcium Erin Magnesium Total Bilirubin AST ALT Alkaline Phosphatase Total Creatine Kinase CK-MB (CK-2) CK/CKMB % Calc Troponin I Total Protein Albumin Globulin Albumin/Globulin Ratio Beta-Hydroxybutyric Acd Procalcitonin TSH Urine Color Urine Appearance Urine pH Ur Specific [place] Urine Protein Urine Glucose (UA) Urine Ketones Urine Blood Urine Nitrite Urine Bilirubin Urine Urobilinogen Ur Leukocyte Esterase Urine WBC (Auto) Urine RBC (Auto) U Hyaline Cast (Auto) U Epithel Cells (Auto) Urine Bacteria (Auto) Ur Renal Epithelial Cell Nasal Screen MRSA (PCR) Digoxin 04/26/19 04/26/19 04/26/19 14:24 14:30 15:16 WBC RBC Hgb POC Hgb Hct POC Hct MCV MCH MCHC RDW Std Deviation RDW Coeff of Baldo Plt Count MPV Immature Gran % (Auto) Neut % (Auto) Lymph % (Auto) [place] % (Auto) Eos % (Auto) Baso % (Auto) Immature Gran # (Auto) Neut # (Auto) Lymph # (Auto) [place] # (Auto) Eos # (Auto) Baso # (Auto) PT INR APTT PTT Ratio ABG pH Cancelled ABG pCO2 Cancelled ABG pO2 Cancelled ABG HCO3 Cancelled ABG O2 Saturation Cancelled ABG Base Excess Cancelled Sam Test Cancelled VBG pH VBG pCO2 VBG pO2 VBG HCO3 VBG O2 Saturation VBG Base Excess Barometric Pressure Cancelled Oxygen Given Cancelled POC Sodium Sodium POC Potassium Potassium POC Chloride Chloride Carbon Dioxide POC Total CO2 Anion Gap POC Anion Gap POC BUN BUN Creatinine POC Creatinine Est Cr Clr Drug Dosing Est GFR ( Amer) Est GFR (Non-Af Amer) BUN/Creatinine Ratio Glucose POC Glucose 390 H* POC Glucose (other) Lactate Calcium POC Ioniz Calcium Erin Magnesium Total Bilirubin AST ALT Alkaline Phosphatase Total Creatine Kinase CK-MB (CK-2) CK/CKMB % Calc Troponin I Total Protein Albumin Globulin Albumin/Globulin Ratio Beta-Hydroxybutyric Acd Procalcitonin 5.50 H TSH Urine Color Urine Appearance Urine pH Ur Specific [place] Urine Protein Urine Glucose (UA) Urine Ketones Urine Blood Urine Nitrite Urine Bilirubin Urine Urobilinogen Ur Leukocyte Esterase Urine WBC (Auto) Urine RBC (Auto) U Hyaline Cast (Auto) U Epithel Cells (Auto) Urine Bacteria (Auto) Ur Renal Epithelial Cell Nasal Screen MRSA (PCR) Digoxin 04/26/19 04/26/19 04/26/19 15:23 15:27 15:31 WBC RBC Hgb POC Hgb Hct POC Hct MCV MCH MCHC RDW Std Deviation RDW Coeff of Baldo Plt Count MPV Immature Gran % (Auto) Neut % (Auto) Lymph % (Auto) [place] % (Auto) Eos % (Auto) Baso % (Auto) Immature Gran # (Auto) Neut # (Auto) Lymph # (Auto) [place] # (Auto) Eos # (Auto) Baso # (Auto) PT INR APTT PTT Ratio ABG pH ABG pCO2 ABG pO2 ABG HCO3 ABG O2 Saturation ABG Base Excess Sam Test VBG pH 7.40 VBG pCO2 48 VBG pO2 27 VBG HCO3 29 VBG O2 Saturation < 60.0 VBG Base Excess 2.9 Barometric Pressure 733.0 Oxygen Given POC Sodium Sodium POC Potassium Potassium 3.7 POC Chloride Chloride Carbon Dioxide POC Total CO2 Anion Gap POC Anion Gap POC BUN BUN Creatinine POC Creatinine Est Cr Clr Drug Dosing Est GFR ( Amer) Est GFR (Non-Af Amer) BUN/Creatinine Ratio Glucose POC Glucose 279 H POC Glucose (other) Lactate Calcium POC Ioniz Calcium Erin Magnesium Total Bilirubin AST ALT Alkaline Phosphatase Total Creatine Kinase CK-MB (CK-2) CK/CKMB % Calc Troponin I Total Protein Albumin Globulin Albumin/Globulin Ratio Beta-Hydroxybutyric Acd Procalcitonin TSH Urine Color Urine Appearance Urine pH Ur Specific [place] Urine Protein Urine Glucose (UA) Urine Ketones Urine Blood Urine Nitrite Urine Bilirubin Urine Urobilinogen Ur Leukocyte Esterase Urine WBC (Auto) Urine RBC (Auto) U Hyaline Cast (Auto) U Epithel Cells (Auto) Urine Bacteria (Auto) Ur Renal Epithelial Cell Nasal Screen MRSA (PCR) Digoxin 04/26/19 04/26/19 04/26/19 15:47 16:18 16:28 WBC RBC Hgb POC Hgb Hct POC Hct MCV MCH MCHC RDW Std Deviation RDW Coeff of Baldo Plt Count MPV Immature Gran % (Auto) Neut % (Auto) Lymph % (Auto) [place] % (Auto) Eos % (Auto) Baso % (Auto) Immature Gran # (Auto) Neut # (Auto) Lymph # (Auto) [place] # (Auto) Eos # (Auto) Baso # (Auto) PT INR APTT PTT Ratio ABG pH Cancelled ABG pCO2 Cancelled ABG pO2 Cancelled ABG HCO3 Cancelled ABG O2 Saturation Cancelled ABG Base Excess Cancelled Sam Test Cancelled VBG pH VBG pCO2 VBG pO2 VBG HCO3 VBG O2 Saturation VBG Base Excess Barometric Pressure Cancelled Oxygen Given Cancelled POC Sodium Sodium POC Potassium Potassium POC Chloride Chloride Carbon Dioxide POC Total CO2 Anion Gap POC Anion Gap POC BUN BUN Creatinine POC Creatinine Est Cr Clr Drug Dosing Est GFR ( Amer) Est GFR (Non-Af Amer) BUN/Creatinine Ratio Glucose POC Glucose 275 H POC Glucose (other) Lactate Calcium POC Ioniz Calcium Erin Magnesium Total Bilirubin AST ALT Alkaline Phosphatase Total Creatine Kinase CK-MB (CK-2) CK/CKMB % Calc Troponin I Total Protein Albumin Globulin Albumin/Globulin Ratio Beta-Hydroxybutyric Acd Procalcitonin TSH Urine Color Urine Appearance Urine pH Ur Specific [place] Urine Protein Urine Glucose (UA) Urine Ketones Urine Blood Urine Nitrite Urine Bilirubin Urine Urobilinogen Ur Leukocyte Esterase Urine WBC (Auto) Urine RBC (Auto) U Hyaline Cast (Auto) U Epithel Cells (Auto) Urine Bacteria (Auto) Ur Renal Epithelial Cell Nasal Screen MRSA (PCR) Pending Digoxin Medications Administered Current Inpatient Medications Acetaminophen (Tylenol) 650 mg PO Q4H PRN PRN Reason: Pain or Fever Stop: 05/26/19 14:09 Allopurinol (Zyloprim) 300 mg PO QPM [facility] Stop: 05/26/19 20:59 Aspirin (Ecotrin Ectab) 81 mg PO QAM [facility] Stop: 05/27/19 08:59 Atorvastatin Calcium (Lipitor) 10 mg PO QAM [facility] Stop: 05/27/19 08:59 Bupropion HCl (Wellbutrin-Xl) 150 mg PO QAM [facility] Stop: 05/27/19 08:59 Dextrose (Dextrose 50%) 25 - 50 ml IV UD PRN; Protocol PRN Reason: Hypoglycemia Protocol Stop: 05/26/19 13:14 Digoxin (Lanoxin) 0.125 mg PO DAILY@1600 [facility] Stop: 05/27/19 15:59 Duloxetine [facility] ([facility]ymbalta) [facility] Stop: 05/27/19 08:59 Gabapentin (Neurontin) 100 mg PO TID [facility] Stop: 05/26/19 14:59 Last Admin: 04/26/19 15:39 Dose: 100 mg Documented by: Glucagon (Glucagen) 1 mg IM UD PRN; Protocol PRN Reason: Hypoglycemia Protocol Stop: 05/26/19 13:14 Glucose (Glucose 40%) 15 - 30 gm PO UD PRN; Protocol PRN Reason: Hypoglycemia Protocol Stop: 05/26/19 13:14 Glucose (Dex4 Glucose) 4 - 8 tabs PO UD PRN; Protocol PRN Reason: Hypoglycemia Protocol Stop: 05/26/19 13:14 Insulin Human Regular 250 (units/ Sodium Chloride) 250 mls @ 8.6 mls/hr IV .Q24H OFE; Protocol Stop: 05/26/19 12:59 Last Titration: 04/26/19 16:39 Dose: 8.6 units/hr, 8.6 mls/hr Documented by: Heparin Sodium/Dextrose (Heparin Sodium/Dextrose) 25,000 units in 500 mls @ 39 mls/hr IV .[id number] OFE; Protocol Stop: 05/26/19 14:09 Last Admin: 04/26/19 14:56 Dose: 1,950 units/hr, 39 mls/hr Documented by: Potassium Chloride 40 meq/ (Sodium Chloride) 1,020 mls @ 125 mls/hr IV .Q8H10M [facility] Stop: 05/26/19 14:29 Last Admin: 04/26/19 15:00 Dose: Not Given Documented by: Piperacillin Sod/Tazobactam (Sod 4.5 gm/ Dextrose) 120 mls @ 30 mls/hr IV Q8H [facility]; Protocol Stop: 05/03/19 17:59 Insulin Aspart (Novolog Flexpen) 0 units SC ACHS [facility] Stop: 05/26/19 16:29 Levothyroxine Sodium (Synthroid) 50 mcg PO DAILYBB [facility] Stop: 05/27/19 06:29 Levothyroxine Sodium (Synthroid) 200 mcg PO DAILYBB [facility] Stop: 05/27/19 06:29 Magnesium Oxide (Mag-Ox) 400 mg PO DAILY [facility] Stop: 05/27/19 08:59 Metoprolol Tartrate (Lopressor) 100 mg PO HS [facility] Stop: 05/26/19 20:59 Metoprolol Tartrate (Lopressor) 150 mg PO QAM [facility] Stop: 05/26/19 14:59 Last Admin: 04/26/19 15:39 Dose: 150 mg Documented by: Miscellaneous (Carbohydrates For Hypoglycemia) 15 - 30 gm PO PRN PRN PRN Reason: Hypoglycemia Treatment Stop: 05/26/19 13:14 Miscellaneous Information (Consult) 1 ea N/A UD PRN PRN Reason: Consult Stop: 05/26/19 11:34 Nystatin (Mycostatin) 1 appln EXT BID PRN PRN Reason: Rash Stop: 05/26/19 14:09 Pantoprazole Sodium (Protonix) 40 mg PO QAM [facility] Stop: 05/27/19 08:59 Vitamin D (Vitamin D3) 2,000 units PO DAILY [facility] Stop: 05/27/19 08:59 Warfarin Sodium (Coumadin) 8 mg PO DAILY@1600 [facility] Stop: 05/26/19 15:59 Last Admin: 04/26/19 15:39 Dose: 8 mg Documented by: PG Care Time/CCT Total # of Minutes Spent Total Time Spent with Patient: Total time spent is greater than 50% in coordination of care (as documented) at patient's floor/unit and/or counseling patient: 95 minutes critical care time exclusive of procedures Resident Activity Tracking Resident Involvement: Resident Care Provided Care Provided: Adult Hospital Medicine
[2019-04-26] MEDS ORDERED: VANCOMYCIN CONSULT ACTIVE PRN (17:02)
--- NOTE | 2019-04-26 17:13 | Communication Note ---
Date of Service: April 26, 2019 @ 0067 Notified by RN of tachypnea tachycardia, and mild respiratory distress. On exam, patient arousable however slow to respond. Reports feeling short of breath. Denies chest pain. VS: Temp 37.2, HR 138, RR 34, BP 116/90, SPO2 94% on 3L NC Lungs: Diminished bilaterally, no crackles or wheezes CV: Tachycardia with irregularly irregular rhythm, +1 to +2 edema BLE, +1-2 peripheral pulses Brisk capillary refill Skin: Warm, dry, pink; chronic venous changes BLE CXR: Worsening pulmonary edema Repeat lactate 6.3 BiPAP and Lasix 80 mg IV x1 ordered Case discussed with ICU; patient accepted for transfer
--- NOTE | 2019-04-26 17:29 | Cardiology Consultation ---
Date of Consultation April 26, 2019 Assessment & Plan (1) Atrial fibrillation with RVR: Given the current clinical context along with his multiple metabolic derangements including: Likely DKA, significant acute renal failure, borderline septic shock and respiratory distress I believe his tachycardia is compensatory in nature. I do not believe his heart rate needs to be treated at this time other than treating the underlying causes. Should it be deemed necessary to lower his heart rate I would recommend a short acting agent Otherwise his INR is subtherapeutic and has been started on heparin at this time however, again given the clinical context I would have no objection to holding t he heparin should it be deemed necessary His QRS morphology is wide however 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 fib burden. (2) Decubitus ulcer: Possible nidus for infection Critical care team is currently evaluating further Should have emergent surgery be deemed necessary for debridement obviously pre- operative cardiac risk assessment would be a moot point and I would in no way delay treatment for further cardiac evaluation. I will hold off on performing an echocardiogram at this time given his baseline poor images and A. fib with rapid ventricular response. This test would not change his preop risk which obviously is extremely high (3) Acute kidney injury superimposed on CKD: (4) Elevated troponin: I do not see any signs of active cardiac ischemia and believe this is due to his rhabdomyolysis and acute renal failure. 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 Luna in consultation today April 26, 2019. He is an extraordinarily medically complex 69-year-old gentleman who normally follows with Jcarlos Haider of our cardiology practice. He presented to [facility] emergency department today from his assisted living facility after being found down on the floor and short of breath by his hydraulic chair assembler this AM. He lives at home with close follow-up by the [facility] at home program. Patient reports that 3 days prior to presentation he started developing tremors and weakness. The weakness progressed to the point where he had multiple mechanical falls. He denies any cardiac complaints of chest pain, palpitations, lightheadedness, dizziness or syncope. There is also reports that the patient had his insulin pump dislodged after crawling on the ground and attempt to get back into bed which failed. And he laid on his hard bedroom floor for an unknown duration of time. His hydraulic chair assembler called EMS and was brought into the emergency department. He was complaining of nausea and vomiting along with shortness of breath. His blood sugar was found to be significantly elevated along with multiple medical derangements. In the emergency department he was given a fluid bolus and then reportedly quickly decompensated and was placed on BiPAP. He was given a dose of Lasix and admitted to the telemetry unit. I evaluated the patient in room 216 however he is in the process of now being transferred to the intensive care unit. He is very somnolent at this time but denies complaint. BiPAP is in place. Past cardiac history: 1. Paroxysmal atrial fibrillation (AF) and atrial flutter (AFL) First diagnosed in 2011 Failed to tolerate dronedarone Amiodarone prescribed in 2012, discontinued in by Pulmonary Medicine secondary to concerns for pulmonary toxicity. Recurrent AFL -2013, converting to NSR with the addition of dofetilide. Recurrent AF, . Status post May 10, [address] Flynn at [facility]. 1. Successful radiofrequency ablation of the cavtricuspid isthmus with creation of a bidirectional isthmus conduction block under conscious sedation. 2. He did not undergo a PVI ablation because of mild hypoxemia, volume overload on presentation. 3. Normal AV node function noted post ablation. 7. History of tachycardia mediated cardiomyopathy (TMC) with LVEF previously 25% 8. Presentation to [facility] in September 2016 following a syncope episode, observed Tachy-Jared Syndrome status post permanent pacemaker implantation with Tikosyn discontinued, metoprolol increased. 2. Chronic coumadin anticoagulation. 3. Diastolic dysfunction. 4. Hypertension 5. Dyslipidemia. 6. Diabetes 7. Obstructive sleep apnea, PAP therapy 8. History of bilateral pulmonary embolus 9. ? sarcoidosis. Cardiac CT on 05/09/2014 raised concern for sarcoid. He as been evaluated by [facility] Pulmonary Medicine, Dr. Jim Cardozo MD, who did not think he has active pulmonary sarcoidosis that would merit steroid therapy especially given his weight and diabetic state. Liver CT in August 2014 revealed hepatosplenomegaly, fatty infiltration of the liver. No hepatic mass. Innumerable small stones or gravel in the gallbladder. 10. Noncompliance Allergies Allergy/AdvReac Type Severity Reaction Status Date / Time No Known Drug Allergies Allergy Verified 04/26/19 10:39 Home Medications Home Medications Medication Instructions Recorded Confirmed Type digoxin 0.125 mg PO QAM #0 07/13/16 04/26/19 History furosemide 80 mg PO BID #0 07/13/16 04/26/19 History omeprazole 20 mg PO QAM #0 07/13/16 04/26/19 History spironolactone 12.5 mg PO QAM #0 07/13/16 04/26/19 History Humulin R U-500 (Conc) Insulin 1 dose CONTINUOUS SUBCUTANEOUS 09/22/16 04/26/19 History INFUSION DIRECTED #0 colchicine 0.6 mg PO QAM #0 09/22/16 04/26/19 History levothyroxine 200 mcg PO QAM #0 03/08/17 04/26/19 History warfarin [Jantoven] 4 mg PO SUTH #0 tab 02/26/18 04/26/19 History allopurinol 300 mg tablet 300 mg PO QPM 05/11/18 04/26/19 History aspirin 81 mg tablet,delayed 81 mg PO QAM 05/11/18 04/26/19 History release atorvastatin 10 mg tablet 10 mg PO QAM 05/11/18 04/26/19 History metolazone 2.5 mg tablet 2.5 mg PO WK tab 05/11/18 04/26/19 History gabapentin 100 mg PO TID 06/24/18 04/26/19 History levothyroxine 50 mcg PO QAM 06/24/18 04/26/19 History duloxetine 60 mg capsule,delayed 60 mg PO QAM 08/31/18 04/26/19 History release metoprolol tartrate 150 mg PO QAM 11/10/18 04/26/19 History bupropion HCl 150 mg PO QAM 12/29/18 04/26/19 History albuterol sulfate 1 puff INHALATION Q6H PRN 04/26/19 04/26/19 History cholecalciferol (vitamin D3) 2,000 unit PO DAILY 04/26/19 04/26/19 History magnesium oxide 400 mg PO DAILY 04/26/19 04/26/19 History metoprolol tartrate 100 mg PO HS 04/26/19 04/26/19 History nystatin 1 applic TOPICAL BID PRN 04/26/19 04/26/19 History sennosides [senna] 8.6 mg PO BID 04/26/19 04/26/19 History warfarin 8 mg PO MOTUWEFRSA 04/26/19 04/26/19 History Patient History Medical History Closed fracture of thyroid cartilage (Resolved) Chronic anticoagulation (Chronic) Paroxysmal atrial fibrillation (Chronic) Shingles rash (Resolved) Hypertension (Chronic) Diastolic CHF (Chronic) Tachy-jared syndrome (Chronic) Pulmonary embolism (Resolved) B/L- 5+ years ago Sleep apnea (Chronic) CPAP Atrial fibrillation (Chronic) paroxysmal Hyperlipidemia (Chronic) Depression (Chronic) Diabetes mellitus, type 2 (Chronic) insulin pump Hypothyroidism (Chronic) Osteoarthritis (Chronic) Claustrophobia (Chronic) Interstitial lung disease (Chronic) Morbid obesity (Chronic) Atrial flutter (Chronic) Sarcoidosis (Chronic) possible- evaluated by pulmonary; felt no active sarcoidosis and would not merit steroid therapy given weight/diabetic state. Fatty liver (Chronic) Bifascicular block (Chronic) CKD (chronic kidney disease) stage 3, GFR 30-59 ml/min (Chronic) COPD, moderate (Chronic) Tachy-jared syndrome (Chronic) Nocturnal hypoxemia (Chronic) Tachycardia induced cardiomyopathy (Chronic) "prior EF of 25% while in aflutter, subsequently normal in NSR" Gout (Chronic) Surgical History Hx of carpal tunnel repair (Chronic) H/O prior ablation treatment (Chronic) History of bronchoscopy (Resolved) Pacemaker (Chronic) Implanted 02/2017 secondary to Sinus node dysfunction/tachy jared syndrome/3rd degree AVB [employer] Pacer check 12/24/17 History of cholecystectomy (Chronic) History of extraction of renal calculus (Resolved) History of arthroscopic knee surgery (Resolved) History of lung surgery (Resolved) thoracoscopy, right VATS, wedge resection History of umbilical hernia repair (Resolved) History of cataract surgery (Resolved) local anesthesia only per pt H/O cardiac radiofrequency ablation Family History Mother Cancer Social History Preferred Language: Citizen Of [place] Communication Ability: Effective Visual Impairment: No Limitations Hearing Ability: Normal Plumbing Assembler Installer Required: No Beliefs That Will Affect Care: None marital status: Current Living Situation: Alone Other Information That Helps Us Care for You: No Feels Safe at Home: Yes Safety Concerns: Feels Safe At This Time Smoking Status: Former smoker Second Hand Exposure: No ; Hx Alcohol Use: No Hx Substance Use: No Review of Systems Review of Systems: All systems reviewed & are unremarkable except as noted in HPI & below Physical Exam Physical Exam: General: Awake, alert and oriented x 3. No acute distress. HEENT: Normocephalic, atraumatic. Pupils equal, round and reactive to light and accommodation. Extraocular muscles are intact. Anicteric sclera. Moist mucous membranes. Neck: No JVD. No bruit. Cardiovascular: Regular. Positive S-4. Normal S-1 and S-2. No S-3. 3/6 holosystolic ejection murmur, 5th intercostal space, mid-clavicular line without radiation. No rubs. Pulmonary: Clear to auscultation bilaterally. No rales, rhonchi, or wheezing. Abdomen: Bowel sounds x 4, soft. No rebound, guarding or tenderness. No organomegaly. Extremities: Significant chronic venous stassis changes of B/L LE and +1 nonpitting edema Skin: Warm and dry. Results & Data Vital Signs (Past 12 Hours) Vital Signs Temp Pulse Pulse Resp BP BP Pulse Ox 04/26/19 15:33 143 H 34 H 98 04/26/19 15:00 37.2 C 138 H 116/90 94 04/26/19 13:32 120 H 20 139/80 92 04/26/19 12:47 135 H 04/26/19 10:29 91 04/26/19 10:21 37.6 C H 85 22 98/60 L 91
[2019-04-26] MEDS ORDERED: VANCOMYCIN HCL 2,750 MG in SODIUM CHLORIDE 0.9% 500 ML IV ONE (17:30)
[2019-04-26] MEDS: INSULIN ASPART 100 UNITS/ML 3 ML PEN SC SCH ×2 (17:37→21:28)
[2019-04-26] MEDS ORDERED: PROPOFOL IV EMULSION 10 MG/ML 100 ML VIAL IV ONE ×2 (17:42→21:26)
[2019-04-26] MEDS ORDERED: RAPID SEQUENCE INDUCTION BAG ONE (17:43)
--- NOTE | 2019-04-26 17:56 | Anesthesiology Consultation ---
Date of Service April 26, 2019 The patient presented with Afib with RVR likely secondary to DKA and sepsis. He was noted to have a larger ulcerated black wound on his buttocks. His blood sugar has improved with insulin treatment in the ICU. An arterial line was placed in the ICU and the patient was placed on Bipap. The patient was able to give verbal consent for anesthesia and his consent was cosigned by Dr. Edouard. The ICU team will place a central line and intubate the patient. We will then transfer him to the OR intubated for a general anesthetic so that Dr. Ortiz may debride the wound. Assessment & Plan (1) Encounter for pre-operative examination: Chart Review Chart Review: Acceptable Risk for Surgery (patient high risk but emergency surgery is necessary) and Patient NOT seen in Pre Admission Testing ASA [id number] Proposed Anesthesia Anesthesia Type: General Anesthesia Line Insertion: Arterial line Risk / Benefits Reviewed With: PT / POA / Parent / Guardian, Accepts Plan and Informed Consent Obtained History Surgery Operation Date: 04/26/19 17:40 Proposed Procedures p Incision and Drainage General - Ino Ortiz MD Height/Weight Height: 5 ft 9 in Weight: 164.4 kg Allergies Allergy/AdvReac Type Severity Reaction Status Date / Time No Known Drug Allergies Allergy Verified 04/26/19 10:39 Medications Home Medications Medication Instructions Recorded Confirmed Last Taken digoxin 0.125 mg PO QAM #0 07/13/16 04/26/19 11/10/18 furosemide 80 mg PO BID #0 07/13/16 04/26/19 11/10/18 omeprazole 20 mg PO QAM #0 07/13/16 04/26/19 11/10/18 spironolactone 12.5 mg PO QAM #0 07/13/16 04/26/19 11/10/18 Humulin R U-500 (Conc) Insulin 1 dose CONTINUOUS SUBCUTANEOUS 09/22/16 04/26/19 11/10/18 INFUSION DIRECTED #0 colchicine 0.6 mg PO QAM #0 09/22/16 04/26/19 11/10/18 levothyroxine 200 mcg PO QAM #0 03/08/17 04/26/19 11/10/18 warfarin [Jantoven] 4 mg PO SUTH #0 tab 02/26/18 04/26/19 04/04/18 21:00 allopurinol 300 mg tablet 300 mg PO QPM 05/11/18 04/26/19 11/09/18 aspirin 81 mg tablet,delayed 81 mg PO QAM 05/11/18 04/26/19 11/10/18 release atorvastatin 10 mg tablet 10 mg PO QAM 05/11/18 04/26/19 11/10/18 metolazone 2.5 mg tablet 2.5 mg PO WK tab 05/11/18 04/26/19 11/06/18 gabapentin 100 mg PO TID 06/24/18 04/26/19 11/10/18 levothyroxine 50 mcg PO QAM 06/24/18 04/26/19 11/10/18 duloxetine 60 mg capsule,delayed 60 mg PO QAM 08/31/18 04/26/19 11/10/18 release metoprolol tartrate 150 mg PO QAM 11/10/18 04/26/19 11/10/18 bupropion HCl 150 mg PO QAM 12/29/18 04/26/19 Unknown albuterol sulfate 1 puff INHALATION Q6H PRN 04/26/19 04/26/19 Unknown cholecalciferol (vitamin D3) 2,000 unit PO DAILY 04/26/19 04/26/19 Unknown magnesium oxide 400 mg PO DAILY 04/26/19 04/26/19 Unknown metoprolol tartrate 100 mg PO HS 04/26/19 04/26/19 Unknown nystatin 1 applic TOPICAL BID PRN 04/26/19 04/26/19 Unknown sennosides [senna] 8.6 mg PO BID 04/26/19 04/26/19 Unknown warfarin 8 mg PO MOTUWEFRSA 04/26/19 04/26/19 Unknown Active Medications Generic Name Dose Route Start Last Admin Trade Name Freq PRN Reason Stop Dose Admin Gabapentin 100 mg 04/26/19 15:00 04/26/19 15:39 Neurontin PO 05/26/19 14:59 100 mg TID OFE Administration Insulin Human Regular 250 250 mls @ 8.6 mls/hr 04/26/19 13:00 04/26/19 16:39 units/ Sodium Chloride IV 05/26/19 12:59 8.6 units/hr .Q24H OFE 8.6 mls/hr Titration Protocol 8.6 UNITS/HR Heparin Sodium/Dextrose 25,000 units in 500 mls @ 39 mls/hr 04/26/19 14:10 04/26/19 14:56 Heparin Sodium/Dextrose IV 05/26/19 14:09 1,950 units/hr .[id number] OFE 39 mls/hr Administration Protocol 1,950 UNITS/HR Potassium Chloride 40 meq/ 1,020 mls @ 125 mls/hr 04/26/19 14:30 04/26/19 15:00 Sodium Chloride IV 05/26/19 14:29 Not Given .Q8H10M OFE Vancomycin HCl 2,750 mg/ 555 mls @ 200 mls/hr 04/26/19 17:30 04/26/19 17:26 Sodium Chloride IV 04/26/19 20:16 200 mls/hr 1730 ONE Administration Insulin Aspart 0 units 04/26/19 16:30 04/26/19 17:37 Novolog Flexpen SC 05/26/19 16:29 Not Given ACHS [facility] Metoprolol Tartrate 150 mg 04/26/19 15:00 04/26/19 15:39 Lopressor PO 05/26/19 14:59 150 mg QAM OFE Administration Warfarin Sodium 8 mg 04/26/19 16:00 04/26/19 15:39 Coumadin PO 05/26/19 15:59 8 mg DAILY@1600 OFE Administration Past Medical History Medical History Closed fracture of thyroid cartilage (Resolved) Chronic anticoagulation (Chronic) Paroxysmal atrial fibrillation (Chronic) Shingles rash (Resolved) Hypertension (Chronic) Diastolic CHF (Chronic) Tachy-sherry syndrome (Chronic) Pulmonary embolism (Resolved) B/L- 5+ years ago Sleep apnea (Chronic) CPAP Atrial fibrillation (Chronic) paroxysmal Hyperlipidemia (Chronic) Depression (Chronic) Diabetes mellitus, type 2 (Chronic) insulin pump Hypothyroidism (Chronic) Osteoarthritis (Chronic) Claustrophobia (Chronic) Interstitial lung disease (Chronic) Morbid obesity (Chronic) Atrial flutter (Chronic) Sarcoidosis (Chronic) possible- evaluated by pulmonary; felt no active sarcoidosis and would not merit steroid therapy given weight/diabetic state. Fatty liver (Chronic) Bifascicular block (Chronic) CKD (chronic kidney disease) stage 3, GFR 30-59 ml/min (Chronic) COPD, moderate (Chronic) Tachy-sherry syndrome (Chronic) Nocturnal hypoxemia (Chronic) Tachycardia induced cardiomyopathy (Chronic) "prior EF of 25% while in aflutter, subsequently normal in NSR" Gout (Chronic) Past Family History Family History Mother Cancer Past Surgical History Surgical History Hx of carpal tunnel repair (Chronic) H/O prior ablation treatment (Chronic) History of bronchoscopy (Resolved) Pacemaker (Chronic) Implanted 02/2017 secondary to Sinus node dysfunction/tachy sherry syndrome/3rd degree AVB [employer] Pacer check 12/24/17 History of cholecystectomy (Chronic) History of extraction of renal calculus (Resolved) History of arthroscopic knee surgery (Resolved) History of lung surgery (Resolved) thoracoscopy, right VATS, wedge resection History of umbilical hernia repair (Resolved) History of cataract surgery (Resolved) local anesthesia only per pt H/O cardiac radiofrequency ablation Social History Smoking Status: Former smoker Hx Alcohol Use: No Hx Substance Use: No substance use type: does not use Review of Systems the patient was tachypneic and breathing with a bipap Physical Exam Vital Signs Last Vital Signs Temp 37.2 C 04/26/19 15:00 Pulse 143 H 04/26/19 15:33 Resp 34 H 04/26/19 15:33 BP 116/90 04/26/19 15:00 Pulse Ox 98 04/26/19 15:33 Constitutional + morbidly obese ENMT Mouth: + edentulous Thyromental Distance: > or= 3.5 Finger Breadths Mallampati Class: III Neck + thick neck Respiratory + respiratory distress Cardiovascular Rate/Rhythm: + abnormal rate and + abnormal rhythm Chest (Breasts) Chest: + pacemaker Musculoskeletal Extremities: extremities normal to inspection (severe leg edema) Skin + lesion (cracked skin on legs) Neurologic moves all extremities Psychiatric Orientation: alert and oriented x 3 Testing Laboratory Results 04/26/19 10:26 04/26/19 15:23 PT 13.5 Seconds (9.0-12.0) H 04/26/19 10: INR 1.3 (0.9-1.1) H 04/26/19 10: APTT 31.3 Seconds (21.0-31.0) H 04/26/19 10:26 Urine Color Yellow 04/26/19 11:50 Urine Appearance Cloudy (Clear) A 04/26/19 11:50 Urine pH 5.0 (4.5-7.5) 04/26/19 11:50 Ur Specific [place] 1.027 (1.000-1.030) 04/26/19 11:50 Urine Protein 1+ (Negative) H 04/26/19 11:50 Urine Glucose (UA) 3+ (Negative) H 04/26/19 11:50 Urine Ketones Trace (Negative) H 04/26/19 11:50 Urine Nitrite Negative (Negative) 04/26/19 11:50 Ur Leukocyte Esterase Negative (Negative) 04/26/19 11:50 Urine WBC (Auto) 10-30 /hpf (0-5) H 04/26/19 11:50 Urine RBC (Auto) 0-4 /hpf (0-4) 04/26/19 11:50 U Hyaline Cast (Auto) 10-30 /lpf (0-5) H 04/26/19 11:50 U Epithel Cells (Auto) >30 /lpf (0-5) H 04/26/19 11:50 Urine Bacteria (Auto) Negative (Negative) 04/26/19 11:50 04/26/19 04/26/19 04/26/19 17:37 16:28 15:27 POC Glucose 219 H 275 H 279 H POC Glucose (other) 04/26/19 04/26/19 04/26/19 14:30 13:03 10:49 POC Glucose 390 H* 451 H* POC Glucose (other) 521 H*
--- NOTE | 2019-04-26 18:00 | Surgery Consultation ---
Date of Consultation April 26, 2019 Assessment & Plan (1) Diabetic ulcer of right buttock associated with type 2 diabetes mellitus, with necrosis of muscle: Excess time of consultation with the management and budget analyst and also with anesthesiologist is prudent to proceed with surgery the wide debridement of his right buttock area possible thigh patient is in agreeable with this and gave verbal consent to proceed accordingly we will proceed after central line will be placed and the patient will be intubated Present on Admission?: Yes (2) Diabetic ulcer of right buttock associated with diabetes mellitus due to underlying condition, with necrosis of muscle: History of Present Illness Attending Physician: Janes Mike MD 69-year-old gentleman diabetes insulin pump cardiomyopathy on home O2 was brought in earlier this morning through the emergency room after apparently been found in a fall by his meat inspector initially felt that he was in diabetic ketoacidosis was transferred to the unit for further evaluation including a lactic acid level elevated 6.6 white count of 15,000 and elevated CPK consideration was given for the possibility of rhabdo my lysis attributing to his renal failure was evaluated by the management and budget analyst and identified in the right gluteal area and area 4 cm so necrosis we are asked to see regarding this as a possibility of infection giving the above clinical presentation rather than DKA Allergies Allergy/AdvReac Type Severity Reaction Status Date / Time No Known Drug Allergies Allergy Verified 04/26/19 10:39 Home Medications Home Medications Medication Instructions Recorded Confirmed Type digoxin 0.125 mg PO QAM #0 07/13/16 04/26/19 History furosemide 80 mg PO BID #0 07/13/16 04/26/19 History omeprazole 20 mg PO QAM #0 07/13/16 04/26/19 History spironolactone 12.5 mg PO QAM #0 07/13/16 04/26/19 History Humulin R U-500 (Conc) Insulin 1 dose CONTINUOUS SUBCUTANEOUS 09/22/16 04/26/19 History INFUSION DIRECTED #0 colchicine 0.6 mg PO QAM #0 09/22/16 04/26/19 History levothyroxine 200 mcg PO QAM #0 03/08/17 04/26/19 History warfarin [Jantoven] 4 mg PO SUTH #0 tab 02/26/18 04/26/19 History allopurinol 300 mg tablet 300 mg PO QPM 05/11/18 04/26/19 History aspirin 81 mg tablet,delayed 81 mg PO QAM 05/11/18 04/26/19 History release atorvastatin 10 mg tablet 10 mg PO QAM 05/11/18 04/26/19 History metolazone 2.5 mg tablet 2.5 mg PO WK tab 05/11/18 04/26/19 History gabapentin 100 mg PO TID 06/24/18 04/26/19 History levothyroxine 50 mcg PO QAM 06/24/18 04/26/19 History duloxetine 60 mg capsule,delayed 60 mg PO QAM 08/31/18 04/26/19 History release metoprolol tartrate 150 mg PO QAM 11/10/18 04/26/19 History bupropion HCl 150 mg PO QAM 12/29/18 04/26/19 History albuterol sulfate 1 puff INHALATION Q6H PRN 04/26/19 04/26/19 History cholecalciferol (vitamin D3) 2,000 unit PO DAILY 04/26/19 04/26/19 History magnesium oxide 400 mg PO DAILY 04/26/19 04/26/19 History metoprolol tartrate 100 mg PO HS 04/26/19 04/26/19 History nystatin 1 applic TOPICAL BID PRN 04/26/19 04/26/19 History sennosides [senna] 8.6 mg PO BID 04/26/19 04/26/19 History warfarin 8 mg PO MOTUWEFRSA 04/26/19 04/26/19 History Patient History Medical History Closed fracture of thyroid cartilage (Resolved) Chronic anticoagulation (Chronic) Paroxysmal atrial fibrillation (Chronic) Shingles rash (Resolved) Hypertension (Chronic) Diastolic CHF (Chronic) Tachy-sherry syndrome (Chronic) Pulmonary embolism (Resolved) B/L- 5+ years ago Sleep apnea (Chronic) CPAP Atrial fibrillation (Chronic) paroxysmal Hyperlipidemia (Chronic) Depression (Chronic) Diabetes mellitus, type 2 (Chronic) insulin pump Hypothyroidism (Chronic) Osteoarthritis (Chronic) Claustrophobia (Chronic) Interstitial lung disease (Chronic) Morbid obesity (Chronic) Atrial flutter (Chronic) Sarcoidosis (Chronic) possible- evaluated by pulmonary; felt no active sarcoidosis and would not merit steroid therapy given weight/diabetic state. Fatty liver (Chronic) Bifascicular block (Chronic) CKD (chronic kidney disease) stage 3, GFR 30-59 ml/min (Chronic) COPD, moderate (Chronic) Tachy-sherry syndrome (Chronic) Nocturnal hypoxemia (Chronic) Tachycardia induced cardiomyopathy (Chronic) "prior EF of 25% while in aflutter, subsequently normal in NSR" Gout (Chronic) Surgical History Hx of carpal tunnel repair (Chronic) H/O prior ablation treatment (Chronic) History of bronchoscopy (Resolved) Pacemaker (Chronic) Implanted 02/2017 secondary to Sinus node dysfunction/tachy sherry syndrome/3rd degree AVB [employer] Pacer check 12/24/17 History of cholecystectomy (Chronic) History of extraction of renal calculus (Resolved) History of arthroscopic knee surgery (Resolved) History of lung surgery (Resolved) thoracoscopy, right VATS, wedge resection History of umbilical hernia repair (Resolved) History of cataract surgery (Resolved) local anesthesia only per pt H/O cardiac radiofrequency ablation Family History Mother Cancer Social History Preferred Language: [place] Communication Ability: Effective Visual Impairment: No Limitations Hearing Ability: Normal Reed Dipper Required: No Beliefs That Will Affect Care: None marital status: Current Living Situation: Alone Other Information That Helps Us Care for You: No Feels Safe at Home: Yes Safety Concerns: Feels Safe At This Time Smoking Status: Former smoker Second Hand Exposure: No ; Hx Alcohol Use: No Hx Substance Use: No Physical Exam Physical Exam: Patient at the present time is on CPAP and is plans to be intubated and place a central line in his right upper extremity has an arterial line he responds appropriately but is markedly obese and is really unable to lift his arm up to sign consent Eyes: PERRL, conjunctivae normal, anicteric sclerae Musculoskeletal: I took 3 people finally were able to rotate him to his left lateral position identified an area in the right gluteal area which is a very dark necrotic area irregular approximately 4 to 5 cm with some right some rounding minimal cellulitis but extending about 15 cm an area of induration involving the right buttock possible the right upper thigh from his position and his large size I am not sure if it extends into the rectal area The upper lower extremities are free of any induration suspect not suspecting this is the site of any myelolysis he is not complaining of any abdominal pain in his abdomen is fairly soft although obese Results & Data Vital Signs (Past 12 Hours) Vital Signs Temp Pulse Pulse Resp BP BP Pulse Ox 04/26/19 15:33 143 H 34 H 98 04/26/19 15:00 37.2 C 138 H 116/90 94 04/26/19 13:32 120 H 20 139/80 92 04/26/19 12:47 135 H 04/26/19 10:29 91 04/26/19 10:21 37.6 C H 85 22 98/60 L 91 PG Care Time/CCT Total # of Minutes Spent Total Time Spent with Patient: Total time spent is greater than 50% in coordination of care (as documented) at patient's floor/unit and/or counseling patient:
[2019-04-26] MEDS ORDERED: CEFAZOLIN 250 MG/ML 1 GM VIAL ONE (18:01)
[2019-04-26] MEDS: PIPERACILLIN/TAZOBACTAM 4.5 GM in DEXTROSE 5% 100 ML IV SCH (18:18)
--- NOTE | 2019-04-26 18:33 | Procedure Note ---
Procedure Note Date of Service April 26, 2019 ARTERIAL LINE PROCEDURE NOTE: Procedure: Arterial Line Placement Provider: Steven Edouard MD Indication: Monitoring on Pressors Anesthesia:None Consent was signed and placed on the chart prior to procedure. Indication, risks, and benefits were explained at length. A time-out was completed verifying correct patient, procedure, site, positioning, and implant(s) or special equipment if applicable. Allens test was performed to ensure adequate perfusion. Patients right wrist was prepped and draped in the usual sterile fashion. Ultrasound guidance was used to aid needle placement. A 20g Arrow arterial line was introduced into the radial artery. Catheter was threaded, and the needle was removed with appropriate blood return. Good waveform was observed. The patient tolerated the procedure well. Confirmation of placement with ultrasound. Images were not saved due to technical issues. Sterile dressing was applied Blood Loss: Minimal Complications: None Coding CPT Codes Tubes, Drains, and Vasc Access - Tubes, Drains, and Vasc Access: Place Catheter In Artery ([id number]) Tubes, Drains, and Vasc Access - Tubes, Drains, and Vasc Access: Ultrasound Guidance For Vascular ([id number])
--- NOTE | 2019-04-26 18:34 | XRay Report ---
XR chest 1V portable HISTORY: 69 years-old Male INTUBATION AND CENTRAL LINE PLACEMENT acute respiratory failure COMPARISON: Chest radiograph 04/26/2019 at 2:56 PM TECHNIQUE: Portable AP view of the chest FINDINGS: Cardiac silhouette is enlarged, unchanged. Left subclavian pacer redemonstrated. Endotracheal tube ov erlies the midline, 5.2 cm superior to the alexandra. Enteric tube distal tip is noted within the region of the proximal gastric body. Pulmonary vascular congestion with mildly improved pulmonary edema. Pr obable trace pleural effusions. No pneumothorax. Patchy bibasilar opacities suggest atelectasis. Late ral left inferior costophrenic angle is excluded from the [id number]. IMPRESSION: 1. Endotracheal tube terminates 5.2 cm superior to the alexandra. 2. Enteric tube distal tip overlies the proximal gastric body. 3. Cardiomegaly with mildly improved pulmonary edema. The above report was generated using voice recognition software. It may contain grammatical, syntax o r spelling errors. Electronically signed by: Pk Menchaca M.D. 04/26/2019 6:33 PM
[2019-04-26] MEDS ORDERED: METOPROLOL TARTRATE 1 MG/ML VIAL IV ONE (18:35)
--- NOTE | 2019-04-26 18:36 | Procedure Note ---
Procedure Note Date of Service April 26, 2019 INTUBATION PROCEDURE NOTE: Provider: Steven Edouard MD A time-out was completed verifying correct patient, procedure, site, positioning. Patient was evaluated and required intubation for needing to go to the OR and septic shock. Sedative agent used: Etomidate 40 mg, propofol 10 mL's Paralysis agent used: None Emergent consent was implied given patients rapidly declining clinical status and need for airway protection. The patient was prepared in the appropriate fashion. Sedation was achieved utilizing etomidate and propofol. The patient was ventilated using the existing BiPAP mask achieve adequate oxygenation. Indirect laryngoscopy was performed using a [facility] laryngoscope. Grade 1 view was achieved. A 8.0 endotracheal tube was placed under 23 cm the lip. The stylette was removed and balloon was inflated with of air. Appropriate Colorimetric change was appreciated. Bilateral breath sounds were heard without air sounds in the abdomen. Post Intubation Chest X-ray confirms placement without pneumothorax. Patient tolerated the procedure well and there were no immediate complications. Coding CPT Codes Resuscitation - Resuscitation: Endotracheal Intubation, emergency ([id number])
--- NOTE | 2019-04-26 18:37 | Procedure Note ---
Procedure Note Date of Service April 26, 2019 CENTRAL LINE PROCEDURE NOTE: Procedure: Central Line Placement Provider: Steven Edouard MD Indication: Central Drug Administration, Poor Venous Access, Multiple Lab Draws Necessary, etc. Anesthesia: None Site: Left internal jugular Consent was signed and placed on the chart prior to procedure. Indication, risks, and benefits were explained at length. A time-out was completed verifying correct patient, procedure, site, positioning, and implants(s) or special equipment if applicable. Patients left neck was cleansed and draped in the typical sterile fashion using Chloraprep. The Internal Jugular Vein and Carotid Artery were identified using ultrasound. the Internal Jugular vein was cannulated under direct ultrasound guidance using an introducer needle on a syringe. Good venous blood return was maintained prior to removal of syringe from introducer needle. Using Seldinger Technique, a guide wire was advanced through the introducer needle without resistance. The introducer needle was removed and ultrasound images were obtained of the guide wire within the Internal Jugular Vein and saved to the patients medical record. A small incision was made in penetrating fashion at the guide wire insertion site utilizing an 11 blade scalpel. The dilator was advanced to the vessel without resistance. The dilator was exchanged for the triple lumen catheter which was advanced into the vessel without resistance. The guide wire was removed intact from the catheter without issue. Claves were placed on each catheter tip with confirmation of good blood flow from each lumen. Each port was easily flushed with sterile saline. The catheter was placed at 24 cm and sut[address] in place. BioPatch was applied to the catheter and a sterile Tegaderm dressing was applied over the catheter with careful attention to sterility. Patient tolerated procedure well. No immediate complications were met. Post procedure x-ray was completed, placement was appropriate and no pneumothorax was noted. Ultrasound guidance was performed for assistance in this procedure however images were not saved due to technical issues Coding CPT Codes Tubes, Drains, and Vasc Access - Tubes, Drains, and Vasc Access: Place catheter in vein superior or inferior vena cava ([id number])
[2019-04-26] MEDS ORDERED: ROCURONIUM BROMIDE 10 MG/ML 5 ML VIAL ONE (18:42)
[2019-04-26 18:45] LABS: Calcium 9.2 mg/dl (8.5-10.1); Creatinine Clr Calc Pharmacy 45.9 ml/min; Est GFR (African American) 31.3; Potassium 3.2 mmol/L (3.5-5.1)
[2019-04-26 18:54] LABS: Troponin I 0.179 ng/ml (0-0.045)
--- NOTE | 2019-04-26 19:12 | Post Operative Brief Note ---
PG Immediate Post Op with CF Date of Surgery April 26, 2019 Pre & Post Diagnosis Operation Date: 04/26/19 17:40 Pre-Op Diagnosis: necrosis of right buttock ulceration Post-Op Diagnosis: necrosis of right buttock ulceration & perirectal abscess, thrombosed hemorrhoid I identified the patient and participated in the time-out.: No Procedure Operation Date: 04/26/19 17:40 Actual Procedures p Debridement necrotic right buttock ulceration; drainage of perirectal abscess; incision of thrombosed hemorrhoid(Right) - Ino Ortiz MD Surgeon Ino Ortiz MD Pool Nurse 0 Estimated Blood Loss 60 Findings Consistent with Post-Op Diagnosis Specimens Specimen Description: Culture #1: Cubital Abscess Permanent: A: Thrombosed Hemorrhoid Drains Valentine Catheter
--- NOTE | 2019-04-26 19:29 | Operative Report ---
PG Post Operative Report Pre & Post Diagnosis Operation Date: 04/26/19 17:40 Pre-Op Diagnosis: necrosis of right buttock ulceration Post-Op Diagnosis: necrosis of right buttock ulceration & perirectal abscess, thrombosed hemorrhoid I identified the patient and participated in the time-out.: No Procedure Operation Date: 04/26/19 17:40 Actual Procedures p Debridement necrotic right buttock ulceration; drainage of perirectal abscess; incision of thrombosed hemorrhoid(Right) - Ino Ortiz MD The patient was brought into the operating room theater after he was intubated central line placed by ICU ab[employer] member per left internal jugular approach chest x-ray was seen light in appropriate position no pneumothorax patient is intubated in ICU transferred to the operating room placed in the prone position the right buttock and left buttock and the upper thigh was prepped Betadine solution properly draped after we had the buttocks laterally to expose the anal area also a timeout was had the patient was identified and had systemic antibiotics on board from ICU the patient had a necrotic area in the right buttock extending from 7:00 to 11 o'clock position from the intergluteal fold the area which was black extended 4 to 5 cm irregular there was moderate amount induration well beyond this area only in the right buttock the perianal area was inspected was found that the patient had a thrombosed hemorrhoid right posterior group with significant fairly prominent venous plexus around the whole perianal area we at this point and inserted a finger in the canal could not see any palpable bulges in the canal or palpate there is electrocautery then I circumferentially incised beyond the necrotic area to subcutaneous tissue si gnificant amount of fatty dirty fat was appreciated in one area that was more liquefied and appeared to be dark red with some purulence cultures for aerobes and anaerobes were obtained we will continue debriding this area as much of the fatty tissue is good to we found viable bleeding tissue mostly fatty tissue the other indurated areas beyond our initial resection of all necrotic area was undermined to free of any necrotic fat at this point at about 11 o'clock position when we are debriding the fat we could see that therapy tract we probe and went into the perianal area suspicious that this was a tractor where an abscess may have originated and then dissected out to the right buttock area we at this point placed a finger and were able to go externally the anal canal and is somewhat seem to point near the area where the thrombosed hemorrhoid was at this point I elected to resect the thrombosed hemorrhoid which is about a centimeter and a half and 2 in size we used electrocautery did not close LFT able area open once we are completed this I elected to pack the area that a likely fistula in the right buttock with a 1 inch vaginal packing plain and took it almost a whole packing to pack the area the one as stated extra canal we then used some 4 x 4 gauze after we have packed the remaining debridement site with a 2 inch Kerlix and better than saline we had used 2-0 silk to hold the vaginal packing to the skin edge and also used two 2-0 silk interrupted sutures to close just lateral to the thrombosed hemorrhoid excision site the skin the subcutaneous tissue to keep that from closing over and extending down into the thrombosed area when were done there was no gross evidence of any necrotic fat left behind there is minimal induration left and is tissue and there was no other pockets that we could appreciate estimated blood loss 60 cc the patient was taken in ICU in good condition Surgeon Ino Ortiz MD Armhole Presser 0 Estimated Blood Loss 60 Findings Consistent with Post-Op Diagnosis Specimens necrotic and ischemic tissue right buttock, thrombosed hemorrhoid c and s necrotic area Description of Procedure merda I attest to the content of the Intraoperative Record and any orders documented therein. Any exceptions are noted below.
[2019-04-26] MEDS ORDERED: ePHEDrine sulfate 50 MG/ML AMP IV PRN (19:30)
[2019-04-26] MEDS ORDERED: ATROPINE SULFATE 0.1 MG/ML 10ML SYR IV PRN (19:30)
--- NOTE | 2019-04-26 19:31 | Anesthesiology Progress Note ---
Date of Service April 26, 2019 Anesthesia Post Procedure Vital Signs Vital Signs: Temp Pulse Pulse Resp BP BP Pulse Ox 04/26/19 18:26 123 H 37 H 94 04/26/19 18:15 112 H 46 H 95 04/26/19 18:00 121 H 28 H 98 04/26/19 17:45 156 H 51 H 98 04/26/19 17:30 148 H 46 H 99 04/26/19 17:15 144 H 44 H 99 04/26/19 17:03 153 H 45 H 176/69 H 99 04/26/19 17:00 41.2 C H 141 H 156 H 44 H 93 04/26/19 16:49 127 H 28 H 04/26/19 16:30 154 H 04/26/19 16:15 170 H 04/26/19 16:00 157 H 04/26/19 15:45 138 H 04/26/19 15:33 143 H 34 H 98 04/26/19 15:30 140 H 04/26/19 15:15 141 H 04/26/19 15:00 37.2 C 156 H 138 H 116/90 94 04/26/19 14:45 175 H 04/26/19 14:30 155 H 04/26/19 14:15 139 H 04/26/19 14:07 153 H 04/26/19 13:45 150 H 33 H 68 L 04/26/19 13:32 120 H 20 139/80 92 04/26/19 13:30 146 H 40 H 95 04/26/19 13:15 128 H 32 H 91 04/26/19 13:00 152 H 26 H 139/80 88 L 04/26/19 12:48 128 H 41 H 140/56 L 90 04/26/19 12:47 135 H 04/26/19 12:45 90 04/26/19 12:30 79 L 04/26/19 12:15 67 L 04/26/19 12:00 92 04/26/19 11:45 90 04/26/19 11:30 136 H 40 H 91 04/26/19 11:20 145 H 17 04/26/19 10:49 132 H 50 H 04/26/19 10:30 138 H 25 H 83 L 04/26/19 10:29 91 04/26/19 10:21 37.6 C H 85 22 98/60 L 91 04/26/19 10:20 111 H 20 91 04/26/19 10:19 139 H 48 H 106/66 90 04/26/19 10:11 120 H 19 98/60 L 87 L Transfer of Care Handoff Completed per policy Notes Mental Status: see notes below Patient Amnestic to Procedure: Yes Nausea / Vomiting: adequately controlled Pain: adequately controlled Airway Patency, RR, SpO2: see Notes below BP & HR: stable & adequate and see Notes below Hydration State: stable & adequate Anesthetic Complications: no major complications apparent and Pt Satisfied with anesthetic care Notes: The patient was transferred back to the ICU intubated and on monitors. Postop BSG was 181. The patient remains in afib with RVR. His SBP went back up to the 140s so he was given a further dose of metoprolol and placed back on the propofol gtt. Sign out was given to the ICU team.
[2019-04-26] MEDS: ESMOLOL / NSS 2,500 MG/250 ML BAG IV PRN ×2 (19:57→22:24)
--- NOTE | 2019-04-26 20:11 | Pharmacy Report ---
Pharmacy Abx Initial Consult - Date of Service April 26, 2019 - Pharmacy Dosing Scope Date of Consult: 04/26/19 Consultation requested by: Dr. Edouard Pharmacy is consulted to initiate Vancomycin IV dosing therapy, order appropriate labs and adjust drug dose/frequency. - Subjective The patient is a 69 year old M admitted on 04/26/19 12:37. - Objective Height: 5 ft 9 in Weight: 164.4 kg Vital Signs (Past 12hrs): Vital Signs Temp Pulse Pulse Resp BP BP Pulse Ox 04/26/19 19:41 149 H 25 H 158/80 H 95 04/26/19 19:40 152 H 25 H 95 04/26/19 19:36 143 H 25 H 132/82 95 04/26/19 19:30 133 H 25 H 95 04/26/19 19:25 138 H 152/84 H 94 04/26/19 19:21 52 H 04/26/19 18:26 123 H 37 H 94 04/26/19 18:15 112 H 46 H 95 04/26/19 18:00 121 H 28 H 98 04/26/19 17:45 156 H 51 H 98 04/26/19 17:30 148 H 46 H 99 04/26/19 17:15 144 H 44 H 99 04/26/19 17:03 153 H 45 H 176/69 H 99 04/26/19 17:00 41.2 C H 141 H 156 H 44 H 93 04/26/19 16:49 127 H 28 H 04/26/19 16:30 154 H 04/26/19 16:15 170 H 04/26/19 16:00 157 H 04/26/19 15:45 138 H 04/26/19 15:33 143 H 34 H 98 04/26/19 15:30 140 H 04/26/19 15:15 141 H 04/26/19 15:00 37.2 C 156 H 138 H 116/90 94 04/26/19 14:45 175 H 04/26/19 14:30 155 H 04/26/19 14:15 139 H 04/26/19 14:07 153 H 04/26/19 13:45 150 H 33 H 68 L 04/26/19 13:32 120 H 20 139/80 92 04/26/19 13:30 146 H 40 H 95 04/26/19 13:15 128 H 32 H 91 04/26/19 13:00 152 H 26 H 139/80 88 L 04/26/19 12:48 128 H 41 H 140/56 L 90 04/26/19 12:47 135 H 04/26/19 12:45 90 04/26/19 12:30 79 L 04/26/19 12:15 67 L 04/26/19 12:00 92 04/26/19 11:45 90 04/26/19 11:30 136 H 40 H 91 04/26/19 11:20 145 H 17 04/26/19 10:49 132 H 50 H 04/26/19 10:30 138 H 25 H 83 L 04/26/19 10:29 91 04/26/19 10:21 37.6 C H 85 22 98/60 L 91 04/26/19 10:20 111 H 20 91 04/26/19 10:19 139 H 48 H 106/66 90 04/26/19 10:11 120 H 19 98/60 L 87 L Lab Results (24hrs): Laboratory Tests (24 Hours) 04/26/19 04/26/19 04/26/19 18:11 14:24 14:24 WBC Neut # (Auto) Creatinine 2.39 H D 2.76 H Est Cr Clr Drug Dosing 45.9 39.7 Total Creatine Kinase Procalcitonin 5.50 H 04/26/19 04/26/19 10:26 10:26 WBC 15.53 H Neut # (Auto) 13.67 H Creatinine 2.79 H Est Cr Clr Drug Dosing 39.3 Total Creatine Kinase 1617 H Procalcitonin Micro Results: 04/26/19 18:48 Gram Stain - Final Sacrum Aerobic and Anaerobic Culture - Pending 04/26/19 11:50 Urine Culture - Pending Urine,Clean Catch 04/26/19 10:57 Aerobic Blood Culture - Pending Blood Anaerobic Blood Culture - Pending 04/26/19 10:26 Aerobic Blood Culture - Pending Blood Anaerobic Blood Culture - Pending - Assessment & Plan Assessment 69 year old M admitted with respiratory failure, DKA, acute on chronic renal failure, and concern for sepsis. Patient is morbidly obese and has infected decubitus ulcer and possible pneumonia. Started on Zosyn and now Vancomycin. Plan Vancomycin IV * Estimated PK Parameters: Vd 0.5 L/kg, Ted 0.038 hr-1, t1/2 18.2 hr. These are based on current Scr = 2.39, Crcl ~40 and would change tomorrow with improvement in renal function. * Loading dose: Vancomycin 2750 mg (16.7 mg/kg) IV x 1 dose given at 1730 today. * Maintenance dose is currently not started yet due to changing renal function. Will start when renal fx is stable. * Goal trough level for Pneumonia: 15 to 20 mcg/mL * Random level ordered for 04/27/19 with AM labs. * Will re-dose Vanco when level is between 15 to 20. * A less than traditional dose has been selected due to likelihood of drug accumulation in obese patient/patient with h/o CKD. Pharmacy will continue to follow and will adjust dose/frequency as necessary. Thank you.
[2019-04-26] MEDS ORDERED: D5NSS + 20MEQ KCL 20 MEQ/1,000 ML BAG IV SCH (20:15)
[2019-04-26 20:22] LABS: iSTAT Allen Test Pass; iSTAT Art Bld Gas pCO2 Correct 71 mmHg (35-46); iSTAT Art Bld Gas pH Corrected 7.236 (7.35-7.45); iSTAT Arterial Blood Gas HCO3 29 meg/L (19-24); iSTAT Arterial Blood Gas pCO2 60 mmHg (35-46); iSTAT Arterial Blood Gas pH 7.29 (7.35-7.45); iSTAT Arterial Blood Gas pO2 79 mmHg (80-95); iSTAT Arterial Blood Gas pO2 C 102; iSTAT Carbon Dioxide 31 mEq/l (24-31); iSTAT Site Art Line
[2019-04-26] MEDS ORDERED: METOPROLOL TARTRATE 100 MG TAB PO SCH (21:00)
[2019-04-26] MEDS ORDERED: fentaNYL citrate 100 MCG/2 ML VIAL IV STA (21:18)
[2019-04-26] MEDS ORDERED: fentaNYL citrate 100 MCG/2 ML VIAL ONE (21:19)
[2019-04-26] MEDS: allopurinoL 300 MG TAB PO SCH (21:28)
[2019-04-26] MEDS: PROPOFOL 1,000 MG/100 ML VIAL IV SCH (21:40)
[2019-04-26] MEDS ORDERED: METOPROLOL TARTRATE 1 MG/ML VIAL IV STA (21:41)
[2019-04-26] MEDS: PHENYLEPHRINE HCL 20 MG in DEXTROSE 5% 500 ML IV SCH (22:01)
[2019-04-26 22:02] LABS: BUN Creatinine Ratio 20.1 (10-20); Calcium 9.4 mg/dl (8.5-10.1); Creatinine Clr Calc Pharmacy 39.9 ml/min; Est GFR (African American) 26.5; Est GFR (Non-African American) 22.8; Potassium 3.5 mmol/L (3.5-5.1)
[2019-04-26] MEDS: METOPROLOL TARTRATE 1 MG/ML VIAL IV PRN ×2 (22:03→22:12)
[2019-04-26 22:28] LABS: iSTAT Allen Test Pass; iSTAT Art Bld Gas pCO2 Correct 50 mmHg (35-46); iSTAT Art Bld Gas pH Corrected 7.357 (7.35-7.45); iSTAT Arterial Blood Gas HCO3 27 meg/L (19-24); iSTAT Arterial Blood Gas pCO2 43 mmHg (35-46); iSTAT Arterial Blood Gas pH 7.41 (7.35-7.45); iSTAT Arterial Blood Gas pO2 101 mmHg (80-95); iSTAT Arterial Blood Gas pO2 C 123; iSTAT Carbon Dioxide 29 mEq/l (24-31); iSTAT Site Art Line
[2019-04-27] MEDS ORDERED: METOPROLOL TARTRATE 1 MG/ML VIAL IV SCH
[2019-04-27] MEDS: ESMOLOL / NSS 2,500 MG/250 ML BAG IV PRN ×9 (00:25→21:32)
[2019-04-27] MEDS: PHENYLEPHRINE HCL 20 MG in DEXTROSE 5% 500 ML IV SCH (01:48)
[2019-04-27] MEDS: PROPOFOL 1,000 MG/100 ML VIAL IV SCH ×5 (01:48→23:55)
[2019-04-27] MEDS: PIPERACILLIN/TAZOBACTAM 4.5 GM in DEXTROSE 5% 100 ML IV SCH ×3 (02:15→17:37)
[2019-04-27 02:32] LABS: Albumin Level 2.6 gm/dl (3.4-5.0); BUN Creatinine Ratio 18.3 (10-20); Calcium 8.5 mg/dl (8.5-10.1); Creatinine Clr Calc Pharmacy 36.7 ml/min; Est GFR (African American) 23.9; Est GFR (Non-African American) 20.6
[2019-04-27 02:41] LABS: Bilirubin,Total 2.1 mg/dl (0.2-1); Total Protein 6.9 gm/dl (6.4-8.2)
[2019-04-27 02:43] LABS: Troponin I 0.192 ng/ml (0-0.045)
[2019-04-27 03:22] LABS: INR 1.3 (0.9-1.1); Prothrombin Time 13.5 Seconds (9.0-12.0)
[2019-04-27 03:44] LABS: Partial Thromboplastin Ratio 1.1; Partial Thromboplastin Time 30.2 Seconds (21.0-31.0)
[2019-04-27 04:17] LABS: Potassium 3.2 mmol/L (3.5-5.1)
[2019-04-27] MEDS: PHENYLEPHRINE HCL 40 MG in DEXTROSE 5% 500 ML IV SCH ×2 (04:20→08:31)
[2019-04-27 04:23] LABS: Bilirubin Direct 0.7 mg/dl (0-0.2)
[2019-04-27] MEDS ORDERED: POTASSIUM CHLORIDE 20 MEQ/15 ML UDC PO STA ×2 (04:32→19:12)
[2019-04-27] MEDS ORDERED: POTASSIUM CHLORIDE / WTR 20 MEQ/100 ML PLCT IV ONE (04:36)
[2019-04-27 04:49] LABS: Magnesium 1.7 mg/dl (1.8-2.4); Phosphorus 3.2 mg/dl (2.5-4.9)
[2019-04-27 04:50] LABS: Hematocrit (blood only) 42.7 % (42-52); Hemoglobin 14.2 g/dL (14.0-18.0); Mean Corpuscular Hemoglobin 30.8 pg (25-34); Mean Corpuscular Hgb Conc 33.3 g/dL (32-36); Mean Corpuscular Volume 92.6 fL (80-100); Mean Platelet Volume 12.3 fL (7.4-10.4); Platelet Count 150 K/uL (130-400); RDW Coefficient of Variation 15.3 % (11.5-14.5); RDW Standard Deviation 51.9 fL (36.4-46.3); Red Blood Count 4.61 M/uL (4.7-6.1); White Blood Count 15.06 K/uL (4.8-10.8)
[2019-04-27] MEDS ORDERED: ACETAMINOPHEN 650 MG SUPP PR STA (05:13)
[2019-04-27] MEDS ORDERED: ACETAMINOPHEN SOLN 325 MG/10.15 ML UDC ONE (05:18)
[2019-04-27 05:23] LABS: iSTAT Art Bld Gas pCO2 Correct 46 mmHg (35-46); iSTAT Art Bld Gas pH Corrected 7.367 (7.35-7.45); iSTAT Arterial Blood Gas HCO3 26 meg/L (19-24); iSTAT Arterial Blood Gas pCO2 41 mmHg (35-46); iSTAT Arterial Blood Gas pH 7.41 (7.35-7.45); iSTAT Arterial Blood Gas pO2 68 mmHg (80-95); iSTAT Arterial Blood Gas pO2 C 83; iSTAT Carbon Dioxide 27 mEq/l (24-31); iSTAT FiO2 40 %; iSTAT Site Art Line
[2019-04-27] MEDS: MAGNESIUM SULFATE / D5W 1 GM/100 ML BAG IV SCH ×2 (05:27→06:23)
[2019-04-27 06:16] LABS: BUN Creatinine Ratio 18.2 (10-20); Calcium 8.8 mg/dl (8.5-10.1); Creatinine Clr Calc Pharmacy 36.8 ml/min; Est GFR (Non-African American) 20.7; Potassium 3.3 mmol/L (3.5-5.1)
[2019-04-27 06:29] LABS: Estimated Average Glucose 226 mg/dl; Hemoglobin A1C 9.5 % (4.5-5.6)
[2019-04-27] MEDS ORDERED: LEVOTHYROXINE SODIUM 200 MCG TABLET PO SCH (06:30)
[2019-04-27] MEDS ORDERED: LEVOTHYROXINE SODIUM 50 MCG TABLET PO SCH (06:30)
[2019-04-27] MEDS ORDERED: PERFLUTREN LIPID MICROSPHERE (DEFINITY) IV ONE (06:33)
--- NOTE | 2019-04-27 07:00 | Ultrasound Report ---
US liver CLINICAL HISTORY: elevated LFT COMPARISON STUDY: CT of the abdomen and pelvis November 10, 2018. FINDINGS: Exam is compromised suboptimal penetration. The liver is enlarged and echogenic. Pancreas i s obscured by overlying bowel gas. Caliber of the common bile duct is at the upper limits of normal f ollowing cholecystectomy, measuring 7 mm. There is a small fluid-filled structure within the cholecys tectomy bed which may reflect a small gallbladder remnant. There is no right hydronephrosis. IMPRESSION: 1. Fatty infiltration of the liver and hepatomegaly. 2. Exam compromised by suboptimal penetration. Obscured pancreas. 3. No biliary ductal dilatation following cholecystectomy. 4. Fluid-filled structure within the gallbladder fossa which is nonspecific but may reflect a gallbla dder remnant. Electronically signed by: Basil Hills M.D. 04/27/2019 6:59 AM
--- NOTE | 2019-04-27 07:03 | XRay Report ---
XR chest 1V portable CLINICAL HISTORY: Respiratory failure COMPARISON STUDY: 04/26/2019 FINDINGS: The heart is enlarged. There is an endotracheal tube 4.3 cm above the alexandra. There is a le ft internal jugular central venous catheter unchanged in position. There is radiographic evidence of mild congestive failure/fluid overload. There is no lobar consolidation.[There is a left subclavian d ual-chamber central venous pacemaker. IMPRESSION: Cardiomegaly with radiographic evidence of mild congestive failure/fluid overload. Electronically signed by: Todd Flowers M.D. 04/27/2019 7:02 AM
[2019-04-27] MEDS ORDERED: fentaNYL citrate 100 MCG/2 ML VIAL IV STA (07:13)
[2019-04-27] MEDS ORDERED: fentaNYL citrate 100 MCG/2 ML VIAL ONE ×2 (07:13→14:22)
[2019-04-27] MEDS ORDERED: ACETAMINOPHEN 325 MG TAB PO PRN (07:30)
--- NOTE | 2019-04-27 07:31 | Critical Care Progress Note ---
Date of Service April 27, 2019 Assessment & Plan (1) Admitted to intensive care unit: Reason Critically Ill: Elevated BSG requiring insulin gtt, Possible sepsis, Afib w/ RVR, requiring I&D for buttock abscess drainage NEURO Sedation with propofol CV Afib w/ RVR- likely 2/2 DKA, dehydration, sepsis, significant acute renal failure, respiratory distress Continue Dig Anticoagulated on Coumadin, INR 1.3; started on IV heparin bridge 2/2 high [id number] and history of PE IV Metoprolol/Esmolol prn to rate control Reasonable to keep HR <120 Appreciate Cardiology recommendations Elevated Trop- likely 2/2 rhabdomyolysis and acute renal failure ECHO Pending HLD, HTN, CAD- Hold home Aspirin, statin, beta-flo CHF- ECHO November 2018: Mildly reduced EF, grade 1 diastolic dysfunction. As below, holding home diuretics due to ALMA ROSA PULM CXR- Mild pulmonary vascular congestion. Repeat showed interval development of pulmonary edema On Mech Vent currently. On home O2 at baseline COPD- stable SALAS- CPAP HS when able ABD/GI Elevated LFT's- likely 2/2 hypoperfusion, sepsis Liver U/S- Fatty infiltration of the liver and hepatomegaly Start tube feeds at [facility] /RENAL CKD III, GFR 30-59 ml/min ALMA ROSA- Baseline creatinine ~1.3. Cr 2.7 on admit. ARF suspect hypoperfusion, ATN Hold home furosemide and spironolactone Appears to be intravascularly dry, bolused with 500 ml+albumin and 1000 ml today with good response in BP/HR Fena 0.3- supports prerenal etiology as demonstrated above ENDO DM2- Elevated BSG 2/2 insulin pump being disconnected overnight. BSG 521 on admit Normal pH and bicarb, elevated AG 16 and b-hydroxybutyric acid 15 ICU Hyperglycemic protocol- insulin gtt right now Will watch volume status 2/2 pulmonary edema and h/o CHF A1C 9.5 Hypothyroidism- Cont levothyroxine ID Concern for Sepsis-Lactic acid 6.6, WBC 15 K, tachycardic; afebrile, BP low- normal on admit. Serum procalcitonin elevated. Etiology likely 2/2 perirectal abscess. Doubt aspiration PNA vs biliary (h/o cholecystectomy) 04/26 debridement necrotic R buttock ulceration; drainage of perirectal abscess; incision of thrombosed hemorrhoid. Consider eval for wound vac tomorrow CXR- No evidence of focal pulmonary consolidation Elevated LFT- Liver U/S- reviewed as above Cont IV Zosyn/Vanc Wound cx- Staph Aureus . Urine cultures- pending. Blood cx- Staph Aureus LA WNL now HEME Stable H/H. No concern for acute bleeding Trend Daily CBC's LINES: PIVx3, L IJ CVC, A-line DVT Prophylaxis: Heparin FULL CODE DISPO: ICU Supervising Physician Co-Signing Physician Notes Patient seen and examined. EMR reviewed. Imaging studies independently reviewed. Discussed with cardiology and general surgery and with the [facility] resident on rounds and on multidisciplinary Impression: 69-year-old male with diabetes admitted with mild DKA, acute kidney injury, and severe sepsis likely secondary to deep soft tissue infection. Status post urgent debridement last evening. He is currently ventilated and on pressors but appears to be improving. Recommendations: 1. Respiratory failure: Continue mechanical ventilation for now. Blood gas is appropriate. Will hold on weaning until the patient's metabolic processes are more stable. 2. Severe sepsis: Suspect related to deep soft tissue infection. Wound was reexamined by general surgery today and they do not feel the need for additional debridement. OR cultures are pending. Plan for potential wound VAC in the a.m. if he does well. Blood cultures are positive for gram-positive cocci. Final speciation and sensitivities pending. Day #2 Zosyn vancomycin. Continue ant ibiotics for now. Depending on results, may need surveillance cultures, ID consult, and/or echocardiogram although previously windows were quite poor. 3. Mild DKA: Continue insulin infusion. Adding trophic tube feeds for some glucose intake. Will follow beta hydroxybutyrate in the a.m.. 4. Atrial fibrillation with rapid ventricular response: The patient is in chronic intermittent A. fib in the outpatient setting. He does have a pacemaker in place. We will continue digoxin after consultation with cardiology. Wean esmolol as tolerated. Continue heparin drip for now. No role for amiodarone or attempts at cardioversion 5. Acute kidney injury: Superimposed on chronic kidney disease. Suspect component of ATN although could have some component of prerenal. Urine output picking up. Continue to follow for now. 6. DVT and GI prophylaxis have been initiated and are appropriate. 7. Leukocytosis: Likely reactive secondary to infectious etiologies. Continue to trend over time. 8. No family available. Remains critically ill. Subjective 69 yo M found in bed this AM. Overnight reports of fever 41.2 C not ammenable to tylenol. Sedation with Propofol 20. Phenylephrine 2 mcg. No other acute concerns or complaints. Review of Systems Review of Systems: All systems reviewed & are unremarkable except as noted in HPI & below Physical Exam Constitutional: + ill appearing, + morbidly obese and + mechanically ventilated ENMT: external ear and nose normal, oropharynx normal Respiratory: + tachypneic Auscultation: lungs clear to auscultation bilaterally Cardiovascular: Rate/Rhythm: + tachycardic and + irregularly irregular Gastrointestinal (Abdomen): normal bowel sounds, soft, nontender, no hepatosplenomegaly Skin: Bandage C/D/I Lymphatic: chronic venous stasis changes LE Results & Data Vital Signs (Past 12 Hours) Vital Signs Temp Pulse Resp BP Pulse Ox 04/27/19 06:00 39.4 C H 115 H 103/63 97 04/27/19 05:45 121 H 101/61 97 04/27/19 05:34 117 H 110/63 97 04/27/19 05:15 116 H 115/59 L 98 04/27/19 05:10 116 H 113/52 L 98 04/27/19 05:08 123 H 27 H 97 04/27/19 04:46 125 H 85/49 L 97 04/27/19 04:40 122 H 104/45 L 97 04/27/19 04:31 124 H 107/50 L 97 04/27/19 04:15 115 H 109/62 99 04/27/19 04:00 110 H 115/62 99 04/27/19 03:46 117 H 108/57 L 97 04/27/19 03:39 117 H 101/65 97 04/27/19 03:31 120 H 105/58 L 96 04/27/19 03:28 124 H 120/66 97 04/27/19 03:16 105 H 83/53 L 97 04/27/19 03:00 118 H 94/63 L 97 04/27/19 02:45 132 H 100/60 97 04/27/19 02:30 120 H 100/58 L 98 04/27/19 02:15 104 H 102/64 98 04/27/19 02:00 103 H 90/54 L 98 04/27/19 01:45 124 H 95/59 L 98 04/27/19 01:30 108 H 26 H 80/53 L 98 04/27/19 01:15 100 H 101/60 99 04/27/19 01:00 105 H 102/57 L 99 04/27/19 00:45 102 H 25 H 102/62 99 04/27/19 00:30 123 H 25 H 98/51 L 99 04/27/19 00:18 114 H 25 H 84/43 L 98 04/27/19 00:15 105 H 25 H 91/46 L 98 04/26/19 23:46 106 H 109/70 100 04/26/19 23:40 117 H 29 H 100 04/26/19 23:31 113 H 113/93 99 04/26/19 23:16 123 H 94/66 L 100 04/26/19 23:05 127 H 114/68 99 04/26/19 22:46 117 H 99/64 L 98 04/26/19 22:30 124 H 120/55 L 98 04/26/19 22:27 129 H 96/47 L 98 04/26/19 22:16 125 H 87/44 L 98 04/26/19 22:15 145 H 87/44 L 98 04/26/19 22:12 137 H 124/57 L 04/26/19 22:03 147 H 124/57 L 04/26/19 22:01 159 H 124/57 L 97 04/26/19 21:48 150 H 106/55 L 04/26/19 21:46 146 H 106/55 L 97 04/26/19 21:45 150 H 97 04/26/19 21:30 153 H 99/76 L 96 04/26/19 21:15 154 H 89/57 L 95 04/26/19 21:00 158 H 106/65 95 04/26/19 20:53 160 H 25 H 95 04/26/19 20:46 145 H 23 103/57 L 95 04/26/19 20:31 109 H 26 H 92/52 L 95 04/26/19 20:29 25 H 04/26/19 20:25 141 H 25 H 112/67 94 04/26/19 20:16 154 H 29 H 108/66 95 04/26/19 20:13 150 H 25 H 117/67 95 04/26/19 20:08 155 H 29 H 160/138 H 95 04/26/19 20:01 128 H 25 H 170/69 H 95 04/26/19 19:46 125 H 25 H 148/132 H 94 04/26/19 19:41 149 H 25 H 158/80 H 95 04/26/19 19:40 152 H 25 H 95 04/26/19 19:36 143 H 25 H 132/82 95 Laboratory Results Laboratory Results - last 24 hr 04/26/19 04/26/19 04/26/19 10:26 10:26 10:26 WBC 15.53 H RBC 4.85 Hgb 15.3 POC Hgb Hct 44.5 POC Hct MCV 91.8 MCH 31.5 MCHC 34.4 RDW Std Deviation 50.8 H RDW Coeff of Baldo 15.2 H Plt Count 143 MPV 11.2 H Immature Gran % (Auto) 0.4 Neut % (Auto) 88.0 Lymph % (Auto) 4.7 [place] % (Auto) 6.8 Eos % (Auto) 0.0 Baso % (Auto) 0.1 Immature Gran # (Auto) 0.06 H Neut # (Auto) 13.67 H Lymph # (Auto) 0.73 L [place] # (Auto) 1.05 H Eos # (Auto) 0.00 Baso # (Auto) 0.02 PT 13.5 H INR 1.3 H APTT 31.3 H PTT Ratio 1.2 Sample Site POC pH POC pCO2 POC pO2 POC HCO3 POC Base Excess ABG pH ABG pH (Temp Correct) ABG pCO2 ABG pCO2 (Temp Corrct ABG pO2 POC ABG pO2 at Pt Temp ABG HCO3 POC ABG O2 Sat ABG O2 Saturation ABG Base Excess Sam Test VBG pH VBG pCO2 VBG pO2 VBG HCO3 VBG O2 Saturation VBG Base Excess Barometric Pressure Oxygen Given O2 Delivery Device POC O2 Rate Minute Ventilation POC FiO2 Tidal Volume PEEP POC Sodium Sodium 130 L POC Potassium Potassium 3.9 POC Chloride Chloride 90 L Carbon Dioxide 23 POC Total CO2 Anion Gap 16.0 H POC Anion Gap POC BUN BUN 53 H Creatinine 2.79 H POC Creatinine Est Cr Clr Drug Dosing 39.3 Est GFR ( Amer) 26.0 Est GFR (Non-Af Amer) 22.4 BUN/Creatinine Ratio 19.0 Glucose 508 H* POC Glucose POC Glucose (other) Estimat Average Glucose Hemoglobin A1c Lactate Calcium 9.8 POC Ioniz Calcium Erin Phosphorus Magnesium 1.9 Total Bilirubin 3.6 H Direct Bilirubin AST 99 H ALT 51 Alkaline Phosphatase 123 H Total Creatine Kinase 1617 H CK-MB (CK-2) CK/CKMB % Calc Troponin I 0.117 H* Total Protein 7.8 Albumin 3.4 Globulin 4.4 H Albumin/Globulin Ratio 0.8 L Beta-Hydroxybutyric Acd 14.97 H Procalcitonin TSH 2.660 Urine Color Urine Appearance Urine pH Ur Specific [place] Urine Protein Urine Glucose (UA) Urine Ketones Urine Blood Urine Nitrite Urine Bilirubin Urine Urobilinogen Ur Leukocyte Esterase Urine WBC (Auto) Urine RBC (Auto) U Hyaline Cast (Auto) U Epithel Cells (Auto) Urine Bacteria (Auto) Ur Renal Epithelial Cell Nasal Screen MRSA (PCR) Random Vancomycin Digoxin Bld Cult Staph aureus PCR Blood Culture MRSA PCR 04/26/19 04/26/19 04/26/19 10:26 10:26 10:49 WBC RBC Hgb POC Hgb 17.0 Hct POC Hct 50 MCV MCH MCHC RDW Std Deviation RDW Coeff of Baldo Plt Count MPV Immature Gran % (Auto) Neut % (Auto) Lymph % (Auto) [place] % (Auto) Eos % (Auto) Baso % (Auto) Immature Gran # (Auto) Neut # (Auto) Lymph # (Auto) [place] # (Auto) Eos # (Auto) Baso # (Auto) PT INR APTT PTT Ratio Sample Site POC pH POC pCO2 POC pO2 POC HCO3 POC Base Excess ABG pH ABG pH (Temp Correct) ABG pCO2 ABG pCO2 (Temp Corrct ABG pO2 POC ABG pO2 at Pt Temp ABG HCO3 POC ABG O2 Sat ABG O2 Saturation ABG Base Excess Sam Test VBG pH VBG pCO2 VBG pO2 VBG HCO3 VBG O2 Saturation VBG Base Excess Barometric Pressure Oxygen Given O2 Delivery Device POC O2 Rate Minute Ventilation POC FiO2 Tidal Volume PEEP POC Sodium 131 L Sodium POC Potassium 4.0 Potassium POC Chloride 91 L Chloride Carbon Dioxide POC Total CO2 23 L Anion Gap POC Anion Gap 21.0 POC BUN 48 H BUN Creatinine POC Creatinine 2.6 H Est Cr Clr Drug Dosing Est GFR ( Amer) Est GFR (Non-Af Amer) BUN/Creatinine Ratio Glucose POC Glucose POC Glucose (other) 521 H* Estimat Average Glucose Hemoglobin A1c Lactate 6.6 H* Calcium POC Ioniz Calcium Erin 1.12 Phosphorus Magnesium Total Bilirubin Direct Bilirubin AST ALT Alkaline Phosphatase Total Creatine Kinase CK-MB (CK-2) 24.8 H CK/CKMB % Calc Not Reportable Troponin I Total Protein Albumin Globulin Albumin/Globulin Ratio Beta-Hydroxybutyric Acd Procalcitonin TSH Urine Color Urine Appearance Urine pH Ur Specific [place] Urine Protein Urine Glucose (UA) Urine Ketones Urine Blood Urine Nitrite Urine Bilirubin Urine Urobilinogen Ur Leukocyte Esterase Urine WBC (Auto) Urine RBC (Auto) U Hyaline Cast (Auto) U Epithel Cells (Auto) Urine Bacteria (Auto) Ur Renal Epithelial Cell Nasal Screen MRSA (PCR) Random Vancomycin Digoxin Bld Cult Staph aureus PCR Blood Culture MRSA PCR 04/26/19 04/26/19 04/26/19 10:57 10:57 11:01 WBC RBC Hgb POC Hgb Hct POC Hct MCV MCH MCHC RDW Std Deviation RDW Coeff of Baldo Plt Count MPV Immature Gran % (Auto) Neut % (Auto) Lymph % (Auto) [place] % (Auto) Eos % (Auto) Baso % (Auto) Immature Gran # (Auto) Neut # (Auto) Lymph # (Auto) [place] # (Auto) Eos # (Auto) Baso # (Auto) PT INR APTT PTT Ratio Sample Site POC pH POC pCO2 POC pO2 POC HCO3 POC Base Excess ABG pH ABG pH (Temp Correct) ABG pCO2 ABG pCO2 (Temp Corrct ABG pO2 POC ABG pO2 at Pt Temp ABG HCO3 POC ABG O2 Sat ABG O2 Saturation ABG Base Excess Sam Test VBG pH 7.43 H VBG pCO2 37 L VBG pO2 34 VBG HCO3 24 VBG O2 Saturation 64.1 VBG Base Excess 0.2 Barometric Pressure 736.1 Oxygen Given O2 Delivery Device POC O2 Rate Minute Ventilation POC FiO2 Tidal Volume PEEP POC Sodium Sodium POC Potassium Potassium POC Chloride Chloride Carbon Dioxide POC Total CO2 Anion Gap POC Anion Gap POC BUN BUN Creatinine POC Creatinine Est Cr Clr Drug Dosing Est GFR ( Amer) Est GFR (Non-Af Amer) BUN/Creatinine Ratio Glucose POC Glucose POC Glucose (other) Estimat Average Glucose Hemoglobin A1c Lactate Calcium POC Ioniz Calcium Erin Phosphorus Magnesium Total Bilirubin Direct Bilirubin AST ALT Alkaline Phosphatase Total Creatine Kinase CK-MB (CK-2) CK/CKMB % Calc Troponin I Total Protein Albumin Globulin Albumin/Globulin Ratio Beta-Hydroxybutyric Acd Procalcitonin TSH Urine Color Urine Appearance Urine pH Ur Specific [place] Urine Protein Urine Glucose (UA) Urine Ketones Urine Blood Urine Nitrite Urine Bilirubin Urine Urobilinogen Ur Leukocyte Esterase Urine WBC (Auto) Urine RBC (Auto) U Hyaline Cast (Auto) U Epithel Cells (Auto) Urine Bacteria (Auto) Ur Renal Epithelial Cell Nasal Screen MRSA (PCR) Random Vancomycin Digoxin 0.4 L Bld Cult Staph aureus PCR Positive A Blood Culture MRSA PCR Negative 04/26/19 04/26/19 04/26/19 11:50 13:03 14:24 WBC RBC Hgb POC Hgb Hct POC Hct MCV MCH MCHC RDW Std Deviation RDW Coeff of Baldo Plt Count MPV Immature Gran % (Auto) Neut % (Auto) Lymph % (Auto) [place] % (Auto) Eos % (Auto) Baso % (Auto) Immature Gran # (Auto) Neut # (Auto) Lymph # (Auto) [place] # (Auto) Eos # (Auto) Baso # (Auto) PT INR APTT PTT Ratio Sample Site POC pH POC pCO2 POC pO2 POC HCO3 POC Base Excess ABG pH ABG pH (Temp Correct) ABG pCO2 ABG pCO2 (Temp Corrct ABG pO2 POC ABG pO2 at Pt Temp ABG HCO3 POC ABG O2 Sat ABG O2 Saturation ABG Base Excess Sam Test VBG pH VBG pCO2 VBG pO2 VBG HCO3 VBG O2 Saturation VBG Base Excess Barometric Pressure Oxygen Given O2 Delivery Device POC O2 Rate Minute Ventilation POC FiO2 Tidal Volume PEEP POC Sodium Sodium 132 L POC Potassium Potassium POC Chloride Chloride 92 L Carbon Dioxide 26 POC Total CO2 Anion Gap 14.0 H POC Anion Gap POC BUN BUN 51 H Creatinine 2.76 H POC Creatinine Est Cr Clr Drug Dosing 39.7 Est GFR ( Amer) 26.3 Est GFR (Non-Af Amer) 22.7 BUN/Creatinine Ratio 18.6 Glucose 352 H* POC Glucose 451 H* POC Glucose (other) Estimat Average Glucose Hemoglobin A1c Lactate Calcium 10.1 POC Ioniz Calcium Erin Phosphorus Magnesium Total Bilirubin Direct Bilirubin AST ALT Alkaline Phosphatase Total Creatine Kinase CK-MB (CK-2) CK/CKMB % Calc Troponin I Total Protein Albumin Globulin Albumin/Globulin Ratio Beta-Hydroxybutyric Acd Procalcitonin TSH Urine Color Yellow Urine Appearance Cloudy A Urine pH 5.0 Ur Specific [place] 1.027 Urine Protein 1+ H Urine Glucose (UA) 3+ H Urine Ketones Trace H Urine Blood 2+ H Urine Nitrite Negative Urine Bilirubin Negative Urine Urobilinogen Negative Ur Leukocyte Esterase Negative Urine WBC (Auto) 10-30 H Urine RBC (Auto) 0-4 U Hyaline Cast (Auto) 10-30 H U Epithel Cells (Auto) >30 H Urine Bacteria (Auto) Negative Ur Renal Epithelial Cell Not Reportable Nasal Screen MRSA (PCR) Random Vancomycin Digoxin Bld Cult Staph aureus PCR Blood Culture MRSA PCR 04/26/19 04/26/19 04/26/19 14:24 14:24 14:30 WBC RBC Hgb POC Hgb Hct POC Hct MCV MCH MCHC RDW Std Deviation RDW Coeff of Baldo Plt Count MPV Immature Gran % (Auto) Neut % (Auto) Lymph % (Auto) [place] % (Auto) Eos % (Auto) Baso % (Auto) Immature Gran # (Auto) Neut # (Auto) Lymph # (Auto) [place] # (Auto) Eos # (Auto) Baso # (Auto) PT INR APTT PTT Ratio Sample Site POC pH POC pCO2 POC pO2 POC HCO3 POC Base Excess ABG pH ABG pH (Temp Correct) ABG pCO2 ABG pCO2 (Temp Corrct ABG pO2 POC ABG pO2 at Pt Temp ABG HCO3 POC ABG O2 Sat ABG O2 Saturation ABG Base Excess Sam Test VBG pH VBG pCO2 VBG pO2 VBG HCO3 VBG O2 Saturation VBG Base Excess Barometric Pressure Oxygen Given O2 Delivery Device POC O2 Rate Minute Ventilation POC FiO2 Tidal Volume PEEP POC Sodium Sodium POC Potassium Potassium POC Chloride Chloride Carbon Dioxide POC Total CO2 Anion Gap POC Anion Gap POC BUN BUN Creatinine POC Creatinine Est Cr Clr Drug Dosing Est GFR ( Amer) Est GFR (Non-Af Amer) BUN/Creatinine Ratio Glucose POC Glucose 390 H* POC Glucose (other) Estimat Average Glucose Hemoglobin A1c Lactate 6.3 H* Calcium POC Ioniz Calcium Erin Phosphorus Magnesium Total Bilirubin Direct Bilirubin AST ALT Alkaline Phosphatase Total Creatine Kinase CK-MB (CK-2) CK/CKMB % Calc Troponin I Total Protein Albumin Globulin Albumin/Globulin Ratio Beta-Hydroxybutyric Acd Procalcitonin 5.50 H TSH Urine Color Urine Appearance Urine pH Ur Specific [place] Urine Protein Urine Glucose (UA) Urine Ketones Urine Blood Urine Nitrite Urine Bilirubin Urine Urobilinogen Ur Leukocyte Esterase Urine WBC (Auto) Urine RBC (Auto) U Hyaline Cast (Auto) U Epithel Cells (Auto) Urine Bacteria (Auto) Ur Renal Epithelial Cell Nasal Screen MRSA (PCR) Random Vancomycin Digoxin Bld Cult Staph aureus PCR Blood Culture MRSA PCR 04/26/19 04/26/19 04/26/19 15:16 15:23 15:27 WBC RBC Hgb POC Hgb Hct POC Hct MCV MCH MCHC RDW Std Deviation RDW Coeff of Baldo Plt Count MPV Immature Gran % (Auto) Neut % (Auto) Lymph % (Auto) [place] % (Auto) Eos % (Auto) Baso % (Auto) Immature Gran # (Auto) Neut # (Auto) Lymph # (Auto) [place] # (Auto) Eos # (Auto) Baso # (Auto) PT INR APTT PTT Ratio Sample Site POC pH POC pCO2 POC pO2 POC HCO3 POC Base Excess ABG pH Cancelled ABG pH (Temp Correct) ABG pCO2 Cancelled ABG pCO2 (Temp Corrct ABG pO2 Cancelled POC ABG pO2 at Pt Temp ABG HCO3 Cancelled POC ABG O2 Sat ABG O2 Saturation Cancelled ABG Base Excess Cancelled Sam Test Cancelled VBG pH VBG pCO2 VBG pO2 VBG HCO3 VBG O2 Saturation VBG Base Excess Barometric Pressure Cancelled Oxygen Given Cancelled O2 Delivery Device POC O2 Rate Minute Ventilation POC FiO2 Tidal Volume PEEP POC Sodium Sodium POC Potassium Potassium 3.7 POC Chloride Chloride Carbon Dioxide POC Total CO2 Anion Gap POC Anion Gap POC BUN BUN Creatinine POC Creatinine Est Cr Clr Drug Dosing Est GFR ( Amer) Est GFR (Non-Af Amer) BUN/Creatinine Ratio Glucose POC Glucose 279 H POC Glucose (other) Estimat Average Glucose Hemoglobin A1c Lactate Calcium POC Ioniz Calcium Erin Phosphorus Magnesium Total Bilirubin Direct Bilirubin AST ALT Alkaline Phosphatase Total Creatine Kinase CK-MB (CK-2) CK/CKMB % Calc Troponin I Total Protein Albumin Globulin Albumin/Globulin Ratio Beta-Hydroxybutyric Acd Procalcitonin TSH Urine Color Urine Appearance Urine pH Ur Specific [place] Urine Protein Urine Glucose (UA) Urine Ketones Urine Blood Urine Nitrite Urine Bilirubin Urine Urobilinogen Ur Leukocyte Esterase Urine WBC (Auto) Urine RBC (Auto) U Hyaline Cast (Auto) U Epithel Cells (Auto) Urine Bacteria (Auto) Ur Renal Epithelial Cell Nasal Screen MRSA (PCR) Random Vancomycin Digoxin Bld Cult Staph aureus PCR Blood Culture MRSA PCR 04/26/19 04/26/19 04/26/19 15:31 15:47 16:18 WBC RBC Hgb POC Hgb Hct POC Hct MCV MCH MCHC RDW Std Deviation RDW Coeff of Baldo Plt Count MPV Immature Gran % (Auto) Neut % (Auto) Lymph % (Auto) [place] % (Auto) Eos % (Auto) Baso % (Auto) Immature Gran # (Auto) Neut # (Auto) Lymph # (Auto) [place] # (Auto) Eos # (Auto) Baso # (Auto) PT INR APTT PTT Ratio Sample Site POC pH POC pCO2 POC pO2 POC HCO3 POC Base Excess ABG pH Cancelled ABG pH (Temp Correct) ABG pCO2 Cancelled ABG pCO2 (Temp Corrct ABG pO2 Cancelled POC ABG pO2 at Pt Temp ABG HCO3 Cancelled POC ABG O2 Sat ABG O2 Saturation Cancelled ABG Base Excess Cancelled Sam Test Cancelled VBG pH 7.40 VBG pCO2 48 VBG pO2 27 VBG HCO3 29 VBG O2 Saturation < 60.0 VBG Base Excess 2.9 Barometric Pressure 733.0 Cancelled Oxygen Given Cancelled O2 Delivery Device POC O2 Rate Minute Ventilation POC FiO2 Tidal Volume PEEP POC Sodium Sodium POC Potassium Potassium POC Chloride Chloride Carbon Dioxide POC Total CO2 Anion Gap POC Anion Gap POC BUN BUN Creatinine POC Creatinine Est Cr Clr Drug Dosing Est GFR ( Amer) Est GFR (Non-Af Amer) BUN/Creatinine Ratio Glucose POC Glucose POC Glucose (other) Estimat Average Glucose Hemoglobin A1c Lactate Calcium POC Ioniz Calcium Erin Phosphorus Magnesium Total Bilirubin Direct Bilirubin AST ALT Alkaline Phosphatase Total Creatine Kinase CK-MB (CK-2) CK/CKMB % Calc Troponin I Total Protein Albumin Globulin Albumin/Globulin Ratio Beta-Hydroxybutyric Acd Procalcitonin TSH Urine Color Urine Appearance Urine pH Ur Specific [place] Urine Protein Urine Glucose (UA) Urine Ketones Urine Blood Urine Nitrite Urine Bilirubin Urine Urobilinogen Ur Leukocyte Esterase Urine WBC (Auto) Urine RBC (Auto) U Hyaline Cast (Auto) U Epithel Cells (Auto) Urine Bacteria (Auto) Ur Renal Epithelial Cell Nasal Screen MRSA (PCR) Negative Random Vancomycin Digoxin Bld Cult Staph aureus PCR Blood Culture MRSA PCR 04/26/19 04/26/19 04/26/19 16:28 17:37 18:11 WBC RBC Hgb POC Hgb Hct POC Hct MCV MCH MCHC RDW Std Deviation RDW Coeff of Baldo Plt Count MPV Immature Gran % (Auto) Neut % (Auto) Lymph % (Auto) [place] % (Auto) Eos % (Auto) Baso % (Auto) Immature Gran # (Auto) Neut # (Auto) Lymph # (Auto) [place] # (Auto) Eos # (Auto) Baso # (Auto) PT INR APTT PTT Ratio Sample Site POC pH POC pCO2 POC pO2 POC HCO3 POC Base Excess ABG pH ABG pH (Temp Correct) ABG pCO2 ABG pCO2 (Temp Corrct ABG pO2 POC ABG pO2 at Pt Temp ABG HCO3 POC ABG O2 Sat ABG O2 Saturation ABG Base Excess Sam Test VBG pH VBG pCO2 VBG pO2 VBG HCO3 VBG O2 Saturation VBG Base Excess Barometric Pressure Oxygen Given O2 Delivery Device POC O2 Rate Minute Ventilation POC FiO2 Tidal Volume PEEP POC Sodium Sodium 132 L POC Potassium Potassium 3.2 L POC Chloride Chloride 98 Carbon Dioxide 24 POC Total CO2 Anion Gap 10.0 POC Anion Gap POC BUN BUN 50 H Creatinine 2.39 H D POC Creatinine Est Cr Clr Drug Dosing 45.9 Est GFR ( Amer) 31.3 Est GFR (Non-Af Amer) 27.0 BUN/Creatinine Ratio 21.0 H Glucose 166 H POC Glucose 275 H 219 H POC Glucose (other) Estimat Average Glucose Hemoglobin A1c Lactate Calcium 9.2 POC Ioniz Calcium Erin Phosphorus Magnesium Total Bilirubin Direct Bilirubin AST ALT Alkaline Phosphatase Total Creatine Kinase CK-MB (CK-2) CK/CKMB % Calc Troponin I 0.179 H* Total Protein Albumin Globulin Albumin/Globulin Ratio Beta-Hydroxybutyric Acd Procalcitonin TSH Urine Color Urine Appearance Urine pH Ur Specific [place] Urine Protein Urine Glucose (UA) Urine Ketones Urine Blood Urine Nitrite Urine Bilirubin Urine Urobilinogen Ur Leukocyte Esterase Urine WBC (Auto) Urine RBC (Auto) U Hyaline Cast (Auto) U Epithel Cells (Auto) Urine Bacteria (Auto) Ur Renal Epithelial Cell Nasal Screen MRSA (PCR) Random Vancomycin Digoxin Bld Cult Staph aureus PCR Blood Culture MRSA PCR 04/26/19 04/26/19 04/26/19 18:11 18:44 19:25 WBC RBC Hgb POC Hgb Hct POC Hct MCV MCH MCHC RDW Std Deviation RDW Coeff of Baldo Plt Count MPV Immature Gran % (Auto) Neut % (Auto) Lymph % (Auto) [place] % (Auto) Eos % (Auto) Baso % (Auto) Immature Gran # (Auto) Neut # (Auto) Lymph # (Auto) [place] # (Auto) Eos # (Auto) Baso # (Auto) PT INR APTT PTT Ratio Sample Site POC pH POC pCO2 POC pO2 POC HCO3 POC Base Excess ABG pH ABG pH (Temp Correct) ABG pCO2 ABG pCO2 (Temp Corrct ABG pO2 POC ABG pO2 at Pt Temp ABG HCO3 POC ABG O2 Sat ABG O2 Saturation ABG Base Excess Sam Test VBG pH VBG pCO2 VBG pO2 VBG HCO3 VBG O2 Saturation VBG Base Excess Barometric Pressure Oxygen Given O2 Delivery Device POC O2 Rate Minute Ventilation POC FiO2 Tidal Volume PEEP POC Sodium Sodium POC Potassium Potassium POC Chloride Chloride Carbon Dioxide POC Total CO2 Anion Gap POC Anion Gap POC BUN BUN Creatinine POC Creatinine Est Cr Clr Drug Dosing Est GFR ( Amer) Est GFR (Non-Af Amer) BUN/Creatinine Ratio Glucose POC Glucose 173 H 181 H POC Glucose (other) Estimat Average Glucose Hemoglobin A1c Lactate 3.1 H* Calcium POC Ioniz Calcium Erin Phosphorus Magnesium Total Bilirubin Direct Bilirubin AST ALT Alkaline Phosphatase Total Creatine Kinase CK-MB (CK-2) CK/CKMB % Calc Troponin I Total Protein Albumin Globulin Albumin/Globulin Ratio Beta-Hydroxybutyric Acd Procalcitonin TSH Urine Color Urine Appearance Urine pH Ur Specific [place] Urine Protein Urine Glucose (UA) Urine Ketones Urine Blood Urine Nitrite Urine Bilirubin Urine Urobilinogen Ur Leukocyte Esterase Urine WBC (Auto) Urine RBC (Auto) U Hyaline Cast (Auto) U Epithel Cells (Auto) Urine Bacteria (Auto) Ur Renal Epithelial Cell Nasal Screen MRSA (PCR) Random Vancomycin Digoxin Bld Cult Staph aureus PCR Blood Culture MRSA PCR 04/26/19 04/26/19 04/26/19 20:09 20:34 21:10 WBC RBC Hgb POC Hgb Hct POC Hct MCV MCH MCHC RDW Std Deviation RDW Coeff of Baldo Plt Count MPV Immature Gran % (Auto) Neut % (Auto) Lymph % (Auto) [place] % (Auto) Eos % (Auto) Baso % (Auto) Immature Gran # (Auto) Neut # (Auto) Lymph # (Auto) [place] # (Auto) Eos # (Auto) Baso # (Auto) PT INR APTT PTT Ratio Sample Site Art Line POC pH 7.29 L POC pCO2 60 H POC pO2 79 L POC HCO3 29 H POC Base Excess 2.0 H ABG pH ABG pH (Temp Correct) 7.236 L ABG pCO2 ABG pCO2 (Temp Corrct 71 H ABG pO2 POC ABG pO2 at Pt Temp 102 ABG HCO3 POC ABG O2 Sat 94.0 ABG O2 Saturation ABG Base Excess Sam Test Pass VBG pH VBG pCO2 VBG pO2 VBG HCO3 VBG O2 Saturation VBG Base Excess Barometric Pressure Oxygen Given O2 Delivery Device POC O2 Rate Minute Ventilation POC FiO2 Tidal Volume PEEP POC Sodium Sodium 134 L POC Potassium Potassium 3.5 POC Chloride Chloride 99 Carbon Dioxide 26 POC Total CO2 31 Anion Gap 9.0 POC Anion Gap POC BUN BUN 55 H Creatinine 2.75 H D POC Creatinine Est Cr Clr Drug Dosing 39.9 Est GFR ( Amer) 26.5 Est GFR (Non-Af Amer) 22.8 BUN/Creatinine Ratio 20.1 H Glucose 134 H POC Glucose 136 H POC Glucose (other) Estimat Average Glucose Hemoglobin A1c Lactate Calcium 9.4 POC Ioniz Calcium Erin Phosphorus Magnesium Total Bilirubin Direct Bilirubin AST ALT Alkaline Phosphatase Total Creatine Kinase CK-MB (CK-2) CK/CKMB % Calc Troponin I Total Protein Albumin Globulin Albumin/Globulin Ratio Beta-Hydroxybutyric Acd Procalcitonin TSH Urine Color Urine Appearance Urine pH Ur Specific [place] Urine Protein Urine Glucose (UA) Urine Ketones Urine Blood Urine Nitrite Urine Bilirubin Urine Urobilinogen Ur Leukocyte Esterase Urine WBC (Auto) Urine RBC (Auto) U Hyaline Cast (Auto) U Epithel Cells (Auto) Urine Bacteria (Auto) Ur Renal Epithelial Cell Nasal Screen MRSA (PCR) Random Vancomycin Digoxin Bld Cult Staph aureus PCR Blood Culture MRSA PCR 04/26/19 04/26/19 04/26/19 21:10 21:31 22:15 WBC RBC Hgb POC Hgb Hct POC Hct MCV MCH MCHC RDW Std Deviation RDW Coeff of Baldo Plt Count MPV Immature Gran % (Auto) Neut % (Auto) Lymph % (Auto) [place] % (Auto) Eos % (Auto) Baso % (Auto) Immature Gran # (Auto) Neut # (Auto) Lymph # (Auto) [place] # (Auto) Eos # (Auto) Baso # (Auto) PT INR APTT PTT Ratio Sample Site Art Line POC pH 7.41 POC pCO2 43 POC pO2 101 H POC HCO3 27 H POC Base Excess 3.0 H ABG pH ABG pH (Temp Correct) 7.357 ABG pCO2 ABG pCO2 (Temp Corrct 50 H ABG pO2 POC ABG pO2 at Pt Temp 123 ABG HCO3 POC ABG O2 Sat 98.0 H ABG O2 Saturation ABG Base Excess Sam Test Pass VBG pH VBG pCO2 VBG pO2 VBG HCO3 VBG O2 Saturation VBG Base Excess Barometric Pressure Oxygen Given O2 Delivery Device POC O2 Rate Minute Ventilation POC FiO2 Tidal Volume PEEP POC Sodium Sodium POC Potassium Potassium POC Chloride Chloride Carbon Dioxide POC Total CO2 29 Anion Gap POC Anion Gap POC BUN BUN Creatinine POC Creatinine Est Cr Clr Drug Dosing Est GFR ( Amer) Est GFR (Non-Af Amer) BUN/Creatinine Ratio Glucose POC Glucose 115 H POC Glucose (other) Estimat Average Glucose Hemoglobin A1c Lactate Calcium POC Ioniz Calcium Erin Phosphorus Magnesium Total Bilirubin Direct Bilirubin AST ALT Alkaline Phosphatase Total Creatine Kinase 2154 H CK-MB (CK-2) CK/CKMB % Calc Troponin I Total Protein Albumin Globulin Albumin/Globulin Ratio Beta-Hydroxybutyric Acd Procalcitonin TSH Urine Color Urine Appearance Urine pH Ur Specific [place] Urine Protein Urine Glucose (UA) Urine Ketones Urine Blood Urine Nitrite Urine Bilirubin Urine Urobilinogen Ur Leukocyte Esterase Urine WBC (Auto) Urine RBC (Auto) U Hyaline Cast (Auto) U Epithel Cells (Auto) Urine Bacteria (Auto) Ur Renal Epithelial Cell Nasal Screen MRSA (PCR) Random Vancomycin Digoxin Bld Cult Staph aureus PCR Blood Culture MRSA PCR 04/26/19 04/26/19 04/26/19 22:30 23:27 23:32 WBC RBC Hgb POC Hgb Hct POC Hct MCV MCH MCHC RDW Std Deviation RDW Coeff of Baldo Plt Count MPV Immature Gran % (Auto) Neut % (Auto) Lymph % (Auto) [place] % (Auto) Eos % (Auto) Baso % (Auto) Immature Gran # (Auto) Neut # (Auto) Lymph # (Auto) [place] # (Auto) Eos # (Auto) Baso # (Auto) PT INR APTT PTT Ratio Sample Site POC pH POC pCO2 POC pO2 POC HCO3 POC Base Excess ABG pH ABG pH (Temp Correct) ABG pCO2 ABG pCO2 (Temp Corrct ABG pO2 POC ABG pO2 at Pt Temp ABG HCO3 POC ABG O2 Sat ABG O2 Saturation ABG Base Excess Sam Test VBG pH VBG pCO2 VBG pO2 VBG HCO3 VBG O2 Saturation VBG Base Excess Barometric Pressure Oxygen Given O2 Delivery Device POC O2 Rate Minute Ventilation POC FiO2 Tidal Volume PEEP POC Sodium Sodium POC Potassium Potassium POC Chloride Chloride Carbon Dioxide POC Total CO2 Anion Gap POC Anion Gap POC BUN BUN Creatinine POC Creatinine Est Cr Clr Drug Dosing Est GFR ( Amer) Est GFR (Non-Af Amer) BUN/Creatinine Ratio Glucose POC Glucose 117 H POC Glucose (other) 115 H Estimat Average Glucose Hemoglobin A1c Lactate 1.6 Calcium POC Ioniz Calcium Erin Phosphorus Magnesium Total Bilirubin Direct Bilirubin AST ALT Alkaline Phosphatase Total Creatine Kinase CK-MB (CK-2) CK/CKMB % Calc Troponin I Total Protein Albumin Globulin Albumin/Globulin Ratio Beta-Hydroxybutyric Acd Procalcitonin TSH Urine Color Urine Appearance Urine pH Ur Specific [place] Urine Protein Urine Glucose (UA) Urine Ketones Urine Blood Urine Nitrite Urine Bilirubin Urine Urobilinogen Ur Leukocyte Esterase Urine WBC (Auto) Urine RBC (Auto) U Hyaline Cast (Auto) U Epithel Cells (Auto) Urine Bacteria (Auto) Ur Renal Epithelial Cell Nasal Screen MRSA (PCR) Random Vancomycin Digoxin Bld Cult Staph aureus PCR Blood Culture MRSA PCR 04/27/19 04/27/19 04/27/19 00:38 02:04 02:04 WBC RBC Hgb POC Hgb Hct POC Hct MCV MCH MCHC RDW Std Deviation RDW Coeff of Baldo Plt Count MPV Immature Gran % (Auto) Neut % (Auto) Lymph % (Auto) [place] % (Auto) Eos % (Auto) Baso % (Auto) Immature Gran # (Auto) Neut # (Auto) Lymph # (Auto) [place] # (Auto) Eos # (Auto) Baso # (Auto) PT Cancelled INR Cancelled APTT PTT Ratio Sample Site POC pH POC pCO2 POC pO2 POC HCO3 POC Base Excess ABG pH ABG pH (Temp Correct) ABG pCO2 ABG pCO2 (Temp Corrct ABG pO2 POC ABG pO2 at Pt Temp ABG HCO3 POC ABG O2 Sat ABG O2 Saturation ABG Base Excess Sam Test VBG pH VBG pCO2 VBG pO2 VBG HCO3 VBG O2 Saturation VBG Base Excess Barometric Pressure Oxygen Given O2 Delivery Device POC O2 Rate Minute Ventilation POC FiO2 Tidal Volume PEEP POC Sodium Sodium 133 L POC Potassium Potassium POC Chloride Chloride 98 Carbon Dioxide 25 POC Total CO2 Anion Gap 10.0 POC Anion Gap POC BUN BUN 55 H Creatinine 2.99 H POC Creatinine Est Cr Clr Drug Dosing 36.7 Est GFR ( Amer) 23.9 Est GFR (Non-Af Amer) 20.6 BUN/Creatinine Ratio 18.3 Glucose 116 H POC Glucose POC Glucose (other) 124 H Estimat Average Glucose Hemoglobin A1c Lactate Calcium 8.5 POC Ioniz Calcium Erin Phosphorus Magnesium Total Bilirubin 2.1 H Direct Bilirubin AST ALT 53 Alkaline Phosphatase 89 Total Creatine Kinase CK-MB (CK-2) CK/CKMB % Calc Troponin I 0.192 H* Total Protein 6.9 Albumin 2.6 L Globulin Albumin/Globulin Ratio Beta-Hydroxybutyric Acd Procalcitonin TSH Urine Color Urine Appearance Urine pH Ur Specific [place] Urine Protein Urine Glucose (UA) Urine Ketones Urine Blood Urine Nitrite Urine Bilirubin Urine Urobilinogen Ur Leukocyte Esterase Urine WBC (Auto) Urine RBC (Auto) U Hyaline Cast (Auto) U Epithel Cells (Auto) Urine Bacteria (Auto) Ur Renal Epithelial Cell Nasal Screen MRSA (PCR) Random Vancomycin Digoxin Bld Cult Staph aureus PCR Blood Culture MRSA PCR 04/27/19 04/27/19 04/27/19 02:04 02:04 02:44 WBC RBC Hgb POC Hgb Hct POC Hct MCV MCH MCHC RDW Std Deviation RDW Coeff of Baldo Plt Count MPV Immature Gran % (Auto) Neut % (Auto) Lymph % (Auto) [place] % (Auto) Eos % (Auto) Baso % (Auto) Immature Gran # (Auto) Neut # (Auto) Lymph # (Auto) [place] # (Auto) Eos # (Auto) Baso # (Auto) PT INR APTT PTT Ratio Sample Site POC pH POC pCO2 POC pO2 POC HCO3 POC Base Excess ABG pH ABG pH (Temp Correct) ABG pCO2 ABG pCO2 (Temp Corrct ABG pO2 POC ABG pO2 at Pt Temp ABG HCO3 POC ABG O2 Sat ABG O2 Saturation ABG Base Excess Sam Test VBG pH VBG pCO2 VBG pO2 VBG HCO3 VBG O2 Saturation VBG Base Excess Barometric Pressure Oxygen Given O2 Delivery Device POC O2 Rate Minute Ventilation POC FiO2 Tidal Volume PEEP POC Sodium Sodium POC Potassium Potassium POC Chloride Chloride Carbon Dioxide POC Total CO2 Anion Gap POC Anion Gap POC BUN BUN Creatinine POC Creatinine Est Cr Clr Drug Dosing Est GFR ( Amer) Est GFR (Non-Af Amer) BUN/Creatinine Ratio Glucose POC Glucose POC Glucose (other) 124 H Estimat Average Glucose 226 Hemoglobin A1c 9.5 H Lactate Calcium POC Ioniz Calcium Erin Phosphorus Magnesium Total Bilirubin Direct Bilirubin AST ALT Alkaline Phosphatase Total Creatine Kinase CK-MB (CK-2) CK/CKMB % Calc Troponin I Total Protein Albumin Globulin Albumin/Globulin Ratio Beta-Hydroxybutyric Acd Procalcitonin TSH Urine Color Urine Appearance Urine pH Ur Specific [place] Urine Protein Urine Glucose (UA) Urine Ketones Urine Blood Urine Nitrite Urine Bilirubin Urine Urobilinogen Ur Leukocyte Esterase Urine WBC (Auto) Urine RBC (Auto) U Hyaline Cast (Auto) U Epithel Cells (Auto) Urine Bacteria (Auto) Ur Renal Epithelial Cell Nasal Screen MRSA (PCR) Random Vancomycin 28.5 Digoxin Bld Cult Staph aureus PCR Blood Culture MRSA PCR 04/27/19 04/27/19 04/27/19 02:53 02:53 02:53 WBC 15.06 H RBC 4.61 L Hgb 14.2 POC Hgb Hct 42.7 POC Hct MCV 92.6 MCH 30.8 MCHC 33.3 RDW Std Deviation 51.9 H RDW Coeff of Baldo 15.3 H Plt Count 150 MPV 12.3 H Immature Gran % (Auto) Neut % (Auto) Lymph % (Auto) [place] % (Auto) Eos % (Auto) Baso % (Auto) Immature Gran # (Auto) Neut # (Auto) Lymph # (Auto) [place] # (Auto) Eos # (Auto) Baso # (Auto) PT 13.5 H INR 1.3 H APTT PTT Ratio Sample Site POC pH POC pCO2 POC pO2 POC HCO3 POC Base Excess ABG pH ABG pH (Temp Correct) ABG pCO2 ABG pCO2 (Temp Corrct ABG pO2 POC ABG pO2 at Pt Temp ABG HCO3 POC ABG O2 Sat ABG O2 Saturation ABG Base Excess Sam Test VBG pH VBG pCO2 VBG pO2 VBG HCO3 VBG O2 Saturation VBG Base Excess Barometric Pressure Oxygen Given O2 Delivery Device POC O2 Rate Minute Ventilation POC FiO2 Tidal Volume PEEP POC Sodium Sodium POC Potassium Potassium POC Chloride Chloride Carbon Dioxide POC Total CO2 Anion Gap POC Anion Gap POC BUN BUN Creatinine POC Creatinine Est Cr Clr Drug Dosing Est GFR ( Amer) Est GFR (Non-Af Amer) BUN/Creatinine Ratio Glucose POC Glucose POC Glucose (other) Estimat Average Glucose Hemoglobin A1c Lactate Calcium POC Ioniz Calcium Erin Phosphorus Magnesium Total Bilirubin Direct Bilirubin AST ALT Alkaline Phosphatase Total Creatine Kinase CK-MB (CK-2) CK/CKMB % Calc Troponin I Total Protein Albumin Globulin Albumin/Globulin Ratio Beta-Hydroxybutyric Acd Procalcitonin TSH Urine Color Urine Appearance Urine pH Ur Specific [place] Urine Protein Urine Glucose (UA) Urine Ketones Urine Blood Urine Nitrite Urine Bilirubin Urine Urobilinogen Ur Leukocyte Esterase Urine WBC (Auto) Urine RBC (Auto) U Hyaline Cast (Auto) U Epithel Cells (Auto) Urine Bacteria (Auto) Ur Renal Epithelial Cell Nasal Screen MRSA (PCR) Random Vancomycin Digoxin Bld Cult Staph aureus PCR Blood Culture MRSA PCR 04/27/19 04/27/19 04/27/19 02:53 03:48 04:34 WBC RBC Hgb POC Hgb Hct POC Hct MCV MCH MCHC RDW Std Deviation RDW Coeff of Baldo Plt Count MPV Immature Gran % (Auto) Neut % (Auto) Lymph % (Auto) [place] % (Auto) Eos % (Auto) Baso % (Auto) Immature Gran # (Auto) Neut # (Auto) Lymph # (Auto) [place] # (Auto) Eos # (Auto) Baso # (Auto) PT INR APTT 30.2 PTT Ratio 1.1 Sample Site POC pH POC pCO2 POC pO2 POC HCO3 POC Base Excess ABG pH ABG pH (Temp Correct) ABG pCO2 ABG pCO2 (Temp Corrct ABG pO2 POC ABG pO2 at Pt Temp ABG HCO3 POC ABG O2 Sat ABG O2 Saturation ABG Base Excess Sam Test VBG pH VBG pCO2 VBG pO2 VBG HCO3 VBG O2 Saturation VBG Base Excess Barometric Pressure Oxygen Given O2 Delivery Device POC O2 Rate Minute Ventilation POC FiO2 Tidal Volume PEEP POC Sodium Sodium POC Potassium Potassium 3.2 L POC Chloride Chloride Carbon Dioxide POC Total CO2 Anion Gap POC Anion Gap POC BUN BUN Creatinine POC Creatinine Est Cr Clr Drug Dosing Est GFR ( Amer) Est GFR (Non-Af Amer) BUN/Creatinine Ratio Glucose POC Glucose POC Glucose (other) 138 H Estimat Average Glucose Hemoglobin A1c Lactate Calcium POC Ioniz Calcium Erin Phosphorus 3.2 Magnesium 1.7 L Total Bilirubin Direct Bilirubin 0.7 H AST 120 H ALT Alkaline Phosphatase Total Creatine Kinase CK-MB (CK-2) CK/CKMB % Calc Troponin I Total Protein Albumin Globulin Albumin/Globulin Ratio Beta-Hydroxybutyric Acd Procalcitonin TSH Urine Color Urine Appearance Urine pH Ur Specific [place] Urine Protein Urine Glucose (UA) Urine Ketones Urine Blood Urine Nitrite Urine Bilirubin Urine Urobilinogen Ur Leukocyte Esterase Urine WBC (Auto) Urine RBC (Auto) U Hyaline Cast (Auto) U Epithel Cells (Auto) Urine Bacteria (Auto) Ur Renal Epithelial Cell Nasal Screen MRSA (PCR) Random Vancomycin Digoxin Bld Cult Staph aureus PCR Blood Culture MRSA PCR 04/27/19 04/27/19 04/27/19 05:07 05:22 06:40 WBC RBC Hgb POC Hgb Hct POC Hct MCV MCH MCHC RDW Std Deviation RDW Coeff of Baldo Plt Count MPV Immature Gran % (Auto) Neut % (Auto) Lymph % (Auto) [place] % (Auto) Eos % (Auto) Baso % (Auto) Immature Gran # (Auto) Neut # (Auto) Lymph # (Auto) [place] # (Auto) Eos # (Auto) Baso # (Auto) PT INR APTT PTT Ratio Sample Site Art Line POC pH 7.41 POC pCO2 41 POC pO2 68 L POC HCO3 26 H POC Base Excess 1.0 ABG pH ABG pH (Temp Correct) 7.367 ABG pCO2 ABG pCO2 (Temp Corrct 46 ABG pO2 POC ABG pO2 at Pt Temp 83 ABG HCO3 POC ABG O2 Sat 93.0 ABG O2 Saturation ABG Base Excess Sam Test NA VBG pH VBG pCO2 VBG pO2 VBG HCO3 VBG O2 Saturation VBG Base Excess Barometric Pressure Oxygen Given O2 Delivery Device Ventilator POC O2 Rate 25 Minute Ventilation 13.2 POC FiO2 40 Tidal Volume 500 PEEP 8 POC Sodium Sodium 134 L POC Potassium Potassium 3.3 L POC Chloride Chloride 96 L Carbon Dioxide 28 POC Total CO2 27 Anion Gap 10.0 POC Anion Gap POC BUN BUN 54 H Creatinine 2.98 H POC Creatinine Est Cr Clr Drug Dosing 36.8 Est GFR ( Amer) 24.0 Est GFR (Non-Af Amer) 20.7 BUN/Creatinine Ratio 18.2 Glucose 122 H POC Glucose POC Glucose (other) 179 H Estimat Average Glucose Hemoglobin A1c Lactate Calcium 8.8 POC Ioniz Calcium Erin Phosphorus Magnesium Total Bilirubin Direct Bilirubin AST ALT Alkaline Phosphatase Total Creatine Kinase 1509 H CK-MB (CK-2) CK/CKMB % Calc Troponin I Total Protein Albumin Globulin Albumin/Globulin Ratio Beta-Hydroxybutyric Acd Procalcitonin TSH Urine Color Urine Appearance Urine pH Ur Specific [place] Urine Protein Urine Glucose (UA) Urine Ketones Urine Blood Urine Nitrite Urine Bilirubin Urine Urobilinogen Ur Leukocyte Esterase Urine WBC (Auto) Urine RBC (Auto) U Hyaline Cast (Auto) U Epithel Cells (Auto) Urine Bacteria (Auto) Ur Renal Epithelial Cell Nasal Screen MRSA (PCR) Random Vancomycin Digoxin Bld Cult Staph aureus PCR Blood Culture MRSA PCR Medications Administered Current Inpatient Medications Acetaminophen (Tylenol) 325 mg PO Q6H PRN PRN Reason: Pain or Fever Stop: 05/26/19 14:09 Allopurinol (Zyloprim) 300 mg PO QPM [facility] Stop: 05/26/19 20:59 Last Admin: 04/26/19 21:28 Dose: 300 mg Documented by: Aspirin (Aspirin Chew) 81 mg PO QAM [facility] Stop: 05/27/19 08:59 Atorvastatin Calcium (Lipitor) 10 mg PO QAM [facility] Stop: 05/27/19 08:59 Bupropion HCl (Wellbutrin-Xl) 150 mg PO QAM [facility] Stop: 05/27/19 08:59 Dextrose (Dextrose 50%) 25 - 50 ml IV UD PRN; Protocol PRN Reason: Hypoglycemia Protocol Stop: 05/26/19 13:14 Digoxin (Lanoxin) 0.125 mg PO DAILY@1600 [facility] Stop: 05/27/19 15:59 Duloxetine HCl (Cymbalta) 60 mg PO QAM [facility] Stop: 05/27/19 08:59 Gabapentin (Neurontin) 100 mg PO TID [facility] Stop: 05/26/19 14:59 Last Admin: 04/26/19 21:28 Dose: 100 mg Documented by: Glucagon (Glucagen) 1 mg IM UD PRN; Protocol PRN Reason: Hypoglycemia Protocol Stop: 05/26/19 13:14 Glucose (Glucose 40%) 15 - 30 gm PO UD PRN; Protocol PRN Reason: Hypoglycemia Protocol Stop: 05/26/19 13:14 Glucose (Dex4 Glucose) 4 - 8 tabs PO UD PRN; Protocol PRN Reason: Hypoglycemia Protocol Stop: 05/26/19 13:14 Insulin Human Regular 250 (units/ Sodium Chloride) 250 mls @ 6.9 mls/hr IV .Q24H [facility]; Protocol Stop: 05/26/19 12:59 Last Titration: 04/27/19 07:16 Dose: 4.4 units/hr, 4.4 mls/hr Documented by: Heparin Sodium/Dextrose (Heparin Sodium/Dextrose) 25,000 units in 500 mls @ 39 mls/hr IV .[id number] [facility]; Protocol Stop: 05/26/19 14:09 Last Titration: 04/27/19 07:16 Dose: 1,950 units/hr, 39 mls/hr Documented by: Potassium Chloride 40 meq/ (Sodium Chloride) 1,020 mls @ 125 mls/hr IV .Q8H10M [facility] Stop: 05/26/19 14:29 Last Admin: 04/26/19 15:00 Dose: Not Given Documented by: Piperacillin Sod/Tazobactam (Sod 4.5 gm/ Dextrose) 120 mls @ 30 mls/hr IV Q8H [facility]; Protocol Stop: 05/03/19 17:59 Last Infusion: 04/27/19 05:17 Dose: Infused Documented by: Esmolol HCl (Brevibloc) 2,500 mg in 250 mls @ 147.96 mls/hr IV .Q1H42M PRN; Protocol PRN Reason: Hypertension Stop: 05/26/19 19:35 Last Admin: 04/27/19 07:41 Dose: 150 mcg/kg/min, 148 mls/hr Documented by: Propofol (Diprivan) 1,000 mg in 100 mls @ 4.932 mls/hr IV .[id number] [facility]; Protocol Stop: 04/29/19 21:24 Last Titration: 04/27/19 07:16 Dose: 25 mcg/kg/min, 24.7 mls/hr Documented by: Phenylephrine HCl 40 mg/ (Dextrose) 504 mls @ 124.29 mls/hr IV .Q4H4M [facility]; Protocol Stop: 05/27/19 03:44 Last Admin: 04/27/19 08:31 Dose: 2 mcg/kg/min, 248.6 mls/hr Documented by: Famotidine 20 mg/ Syringe 5 mls @ 2.5 mls/min IV BID [facility] Stop: 05/27/19 08:59 Sodium Chloride (Nss 1000ml) 500 mls @ 999 mls/hr IV .Q31M ONE Stop: 04/27/19 09:29 Albumin Human (Albumin 25%) 50 mls @ 50 mls/hr IV 0915 ONE Stop: 04/27/19 10:14 Insulin Aspart (Novolog Flexpen) 0 units SC ACHS [facility] Stop: 05/26/19 16:29 Last Admin: 04/27/19 07:37 Dose: Not Given Documented by: Levothyroxine Sodium (Synthroid) 50 mcg PO DAILYBB [facility] Stop: 05/27/19 06:29 Last Admin: 04/27/19 06:23 Dose: 50 mcg Documented by: Levothyroxine Sodium (Synthroid) 200 mcg PO DAILYBB [facility] Stop: 05/27/19 06:29 Last Admin: 04/27/19 06:23 Dose: 200 mcg Documented by: Magnesium Oxide (Mag-Ox) 400 mg PO DAILY [facility] Stop: 05/27/19 08:59 Metoprolol Tartrate (Lopressor) 100 mg PO HS [facility] Stop: 05/26/19 20:59 Last Admin: 04/26/19 21:25 Dose: Not Given Documented by: Metoprolol Tartrate (Lopressor) 150 mg PO QAM [facility] Stop: 05/26/19 14:59 Last Admin: 04/26/19 15:39 Dose: 150 mg Documented by: Metoprolol Tartrate (Lopressor) 5 mg IV Q5M PRN PRN Reason: HR>130 Last Admin: 04/26/19 22:12 Dose: 5 mg Documented by: Miscellaneous (Carbohydrates For Hypoglycemia) 15 - 30 gm PO PRN PRN PRN Reason: Hypoglycemia Treatment Stop: 05/26/19 13:14 Miscellaneous Information (Consult) 1 ea N/A UD PRN PRN Reason: Consult Stop: 05/26/19 11:34 Miscellaneous Information (Consult) 1 ea N/A UD PRN PRN Reason: Consult Stop: 05/26/19 17:01 Nystatin (Mycostatin) 1 appln EXT BID PRN PRN Reason: Rash Stop: 05/26/19 14:09 Vitamin D (Vitamin D3) 2,000 units PO DAILY [facility] Stop: 05/27/19 08:59 Warfarin Sodium (Coumadin) 8 mg PO DAILY@1600 [facility] Stop: 05/26/19 15:59 Last Admin: 04/26/19 15:39 Dose: 8 mg Documented by: PG Care Time/CCT Total # of Minutes Spent Total Time Spent with Patient: Total time spent is greater than 50% in coordination of care (as documented) at patient's floor/unit and/or counseling patient: Critical Care Time: Yes Total Critical Care Time: 45 Resident Activity Tracking Resident Involvement: Resident Care Provided Care Provided: Adult Hospital Medicine
[2019-04-27] MEDS: INSULIN ASPART 100 UNITS/ML 3 ML PEN SC SCH ×4 (07:37→21:29)
[2019-04-27] MEDS ORDERED: SODIUM CHLORIDE 0.9% 1000ML 500 ML IV ONE (08:59)
[2019-04-27] MEDS ORDERED: ASPIRIN 81 MG ECTAB PO SCH (09:00)
[2019-04-27] MEDS ORDERED: BuPROPion XL 150 MG TABCR PO SCH (09:00)
[2019-04-27] MEDS ORDERED: MAGNESIUM OXIDE 400 MG TAB PO SCH (09:00)
[2019-04-27] MEDS ORDERED: METOPROLOL TARTRATE 100 MG TAB PO SCH (09:00)
[2019-04-27] MEDS ORDERED: PANTOprazole 40 MG TAB PO SCH (09:00)
[2019-04-27] MEDS ORDERED: FAMOTIDINE 10 MG/ML 2ML VIAL IV SCH (09:00)
[2019-04-27] MEDS ORDERED: ALBUMIN 25% 50 ML IV ONE (09:15)
--- NOTE | 2019-04-27 09:27 | Surgery Progress Note ---
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 Ortiz outer dressing changed, packing left in place, consider eval for wound vac tomorrow [facility] U/S reviewed with radiology, may have gallbladder remnant, nothing further needed Subjective intubated, on pressors Physical Exam Skin: some drainage, wound clean Results & Data Vital Signs (Past 12 Hours) Vital Signs Temp Pulse Resp BP Pulse Ox 04/27/19 07:43 26 H 04/27/19 06:00 39.4 C H 115 H 103/63 97 04/27/19 05:45 121 H 101/61 97 04/27/19 05:34 117 H 110/63 97 04/27/19 05:15 116 H 115/59 L 98 04/27/19 05:10 116 H 113/52 L 98 04/27/19 05:08 123 H 27 H 97 04/27/19 04:46 125 H 85/49 L 97 04/27/19 04:40 122 H 104/45 L 97 04/27/19 04:31 124 H 107/50 L 97 04/27/19 04:15 115 H 109/62 99 04/27/19 04:00 110 H 115/62 99 04/27/19 03:46 117 H 108/57 L 97 04/27/19 03:39 117 H 101/65 97 04/27/19 03:31 120 H 105/58 L 96 04/27/19 03:28 124 H 120/66 97 04/27/19 03:16 105 H 83/53 L 97 04/27/19 03:00 118 H 94/63 L 97 04/27/19 02:45 132 H 100/60 97 04/27/19 02:30 120 H 100/58 L 98 04/27/19 02:15 104 H 102/64 98 04/27/19 02:00 103 H 90/54 L 98 04/27/19 01:45 124 H 95/59 L 98 04/27/19 01:30 108 H 26 H 80/53 L 98 04/27/19 01:15 100 H 101/60 99 04/27/19 01:00 105 H 102/57 L 99 04/27/19 00:45 102 H 25 H 102/62 99 04/27/19 00:30 123 H 25 H 98/51 L 99 04/27/19 00:18 114 H 25 H 84/43 L 98 04/27/19 00:15 105 H 25 H 91/46 L 98 04/26/19 23:46 106 H 109/70 100 04/26/19 23:40 117 H 29 H 100 04/26/19 23:31 113 H 113/93 99 04/26/19 23:16 123 H 94/66 L 100 04/26/19 23:05 127 H 114/68 99 04/26/19 22:46 117 H 99/64 L 98 04/26/19 22:30 124 H 120/55 L 98 04/26/19 22:27 129 H 96/47 L 98 04/26/19 22:16 125 H 87/44 L 98 04/26/19 22:15 145 H 87/44 L 98 04/26/19 22:12 137 H 124/57 L 04/26/19 22:03 147 H 124/57 L 04/26/19 22:01 159 H 124/57 L 97 04/26/19 21:48 150 H 106/55 L 04/26/19 21:46 146 H 106/55 L 97 04/26/19 21:45 150 H 97 04/26/19 21:30 153 H 99/76 L 96 PG Care Time/CCT Total # of Minutes Spent Total Time Spent with Patient: Total time spent is greater than 50% in coordination of care (as documented) at patient's floor/unit and/or counseling patient:
[2019-04-27] MEDS: FAMOTIDINE 20 MG in SYRINGE 3 ML IV SCH ×2 (09:31→21:44)
[2019-04-27] MEDS: GABAPENTIN 100 MG CAP PO SCH ×2 (09:32→13:26)
[2019-04-27] MEDS: ASPIRIN 81 MG CHEW PO SCH (09:32)
[2019-04-27] MEDS: CHOLECALCIFEROL 1,000 UNITS TAB PO SCH (09:33)
[2019-04-27] MEDS: DULOXETINE HCL 60 MG CAP PO SCH (09:56)
[2019-04-27] MEDS: PHENYLEPHRINE HCL IV SCH ×4 (10:41→23:54)
[2019-04-27] MEDS: DEXTROSE 5% IV SCH ×4 (10:41→23:54)
[2019-04-27 10:57] LABS: Partial Thromboplastin Ratio 3.1
[2019-04-27 11:03] LABS: Albumin Level 2.7 gm/dl (3.4-5.0); BUN Creatinine Ratio 19.6 (10-20); Calcium 8.6 mg/dl (8.5-10.1); Creatinine Clr Calc Pharmacy 39.2 ml/min; Est GFR (African American) 25.9; Est GFR (Non-African American) 22.3; Magnesium 2.3 mg/dl (1.8-2.4); Potassium 3.3 mmol/L (3.5-5.1)
[2019-04-27 11:04] LABS: Partial Thromboplastin Time 85.3 Seconds (21.0-31.0)
[2019-04-27 11:07] LABS: Albumin Globulin Ratio 0.7 (0.9-2); Bilirubin,Total 1.9 mg/dl (0.2-1); Globulin 3.8 gm/dl (2.5-4.0); Total Protein 6.5 gm/dl (6.4-8.2)
--- NOTE | 2019-04-27 11:17 | Cardiology Progress Note ---
Date of Service April 27, 2019 Assessment & Plan (1) Atrial fibrillation with RVR: rates remain elevated which is expected given clinical context ideally would allow compensatory tachycardia, however, given hx of nicm would prefer to keep ventricular rate under 120 bpm on outpatient metoprolol via ngt would cont digoxin also given that pacemaker is in place, will follow closely given ongoing renal impairment His QRS morphology is wide however 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 fib burden. (2) Decubitus ulcer: s/p resection likely nidus of events (3) Acute kidney injury superimposed on CKD: (4) Elevated troponin: I do not see any signs of active cardiac ischemia and believe this is due to his rhabdomyolysis and acute renal failure. 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 Chart reviewed along with events of overnight. tele reviewed: atrial fibrillation with underlying bifasicular block, rates variable Review of Systems Review of Systems: Unobtainable due to endotracheal tube Physical Exam Physical Exam: General: Awake, alert and oriented x 3. No acute distress. HEENT: Normocephalic, atraumatic. Pupils equal, round and reactive to light and accommodation. Extraocular muscles are intact. Anicteric sclera. Moist mucous membranes. Neck: No JVD. No bruit. Cardiovascular: Distant but irregularly irregular Pulmonary: Clear to auscultation B/L. No rales, rhonchi or wheezing Abdomen: Bowel sounds x 4, soft. No rebound, guarding or tenderness. No o rganomegaly. Extremities: chronic venous stasis changes, +1 nonpitting edema Skin: Warm and dry. Results & Data Vital Signs (Past 12 Hours) Vital Signs Temp Pulse Resp BP Pulse Ox 04/27/19 07:43 26 H 04/27/19 06:00 39.4 C H 115 H 103/63 97 04/27/19 05:45 121 H 101/61 97 04/27/19 05:34 117 H 110/63 97 04/27/19 05:15 116 H 115/59 L 98 04/27/19 05:10 116 H 113/52 L 98 04/27/19 05:08 123 H 27 H 97 04/27/19 04:46 125 H 85/49 L 97 04/27/19 04:40 122 H 104/45 L 97 04/27/19 04:31 124 H 107/50 L 97 04/27/19 04:15 115 H 109/62 99 04/27/19 04:00 110 H 115/62 99 04/27/19 03:46 117 H 108/57 L 97 04/27/19 03:39 117 H 101/65 97 04/27/19 03:31 120 H 105/58 L 96 04/27/19 03:28 124 H 120/66 97 04/27/19 03:16 105 H 83/53 L 97 04/27/19 03:00 118 H 94/63 L 97 04/27/19 02:45 132 H 100/60 97 04/27/19 02:30 120 H 100/58 L 98 04/27/19 02:15 104 H 102/64 98 04/27/19 02:00 103 H 90/54 L 98 04/27/19 01:45 124 H 95/59 L 98 04/27/19 01:30 108 H 26 H 80/53 L 98 04/27/19 01:15 100 H 101/60 99 04/27/19 01:00 105 H 102/57 L 99 04/27/19 00:45 102 H 25 H 102/62 99 04/27/19 00:30 123 H 25 H 98/51 L 99 04/27/19 00:18 114 H 25 H 84/43 L 98 04/27/19 00:15 105 H 25 H 91/46 L 98 04/26/19 23:46 106 H 109/70 100 04/26/19 23:40 117 H 29 H 100 04/26/19 23:31 113 H 113/93 99 04/26/19 23:16 123 H 94/66 L 100
[2019-04-27] MEDS ORDERED: SODIUM CHLORIDE 0.9% 1000ML 1,000 ML IV ONE (12:44)
[2019-04-27] MEDS ORDERED: fentaNYL citrate 100 MCG/2 ML VIAL IV PRN (14:23)
[2019-04-27] MEDS: INSULIN REGULAR 250 UNITS in SODIUM CHLORIDE 0.9% 247.5 ML IV SCH (15:27)
--- NOTE | 2019-04-27 15:48 | Hospitalist Progress Note ---
Date of Service April 27, 2019 Assessment & Plan (1) Sepsis: sepsis secondary to bacteremia from Staphylococcus aureus likely from necrosis of right buttock ulceration -69-year-old male with diabetes admitted with mild DKA, acute kidney injury, and severe sepsis likely secondary to deep soft tissue infection. Status post urgent debridement on 04/27/19 He is currently ventilated and on pressors but appears to be improving. -continue empiric Zosyn and Vancomycin -appreciate ICU management of mechanical ventilator and vasopressors and sedation while remains intubated (2) Lactic acidosis: -admission lactic acid 6.6 -lactic acidosis has resolved (3) Decubitus ulcer: -Present on admission of necrosis of right buttock ulceration -Operation Date: 04/26/19: s/p Debridement necrotic right buttock ulceration; drainage of perirectal abscess; incision of thrombosed hemorrhoid -since debridement patient remains intubated while in the ICU to await the further improvements of patient's metabolic processes before extubation (4) Atrial fibrillation with RVR: -secondary to sepsis and metabolic derangements -on IV esmolol -oral elixir digoxin 0.125 mg daily (5) Elevated troponin: -elevated troponins from demand ischemia due to to sepsis and atrial fibrillation with rapid ventricular response -on Iv heparin (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 (7) Pacemaker: -Pacemaker in place and functioning appropriately as per cardiology evaluation (8) Chronic diastolic CHF (congestive heart failure): History of Non ischemic Cardiomyopathy in the past -Echo 11/2018: Mildly reduced EF, grade 1 diastolic dysfunction -diuretics have been held due to acute kidney injury (9) Acute kidney injury superimposed on CKD: -diuretics and losartan have been held -has kevyn to monitor urine output (10) CKD (chronic kidney disease) stage 3, GFR 30-59 ml/min: -Baseline creatinine should be around 1.3 (11) Diabetes mellitus, type 2: Type 2 diabetes mellitus with mcc current use of insulin and with hyperglycemia Mild Diabetic Ketoacidosis -Patient presenting from home with generalized weakness and frequent falls for the past 3 days prior to admission with insulin pump became disconnected at some point in time throughout the night and patient was unable to reconnect -currently on insulin drip -on tube feeds for now (12) Hypothyroidism: -hold levothyroxine for now given tachycardia (13) COPD, moderate: -is intubated (14) SALAS (obstructive sleep apnea): -is intubated (15) History of pulmonary embolism: -History of pulmonary embolism in the past (16) DVT prophylaxis: -On IV heparin daughter Bing [phone] daughter Tatyana sister Enrike [phone] Subjective Patient is sedated, intubated. on multiple IV drips of vasopressor, esmolol, propaofol, IV heparin, IV insulin. Has bagley. Patient has large body habitus. Given large body habitus and multiple IVs and lines, unable to assess the buttock. Physical Exam Constitutional: + obese Patient is sedated, intubated ENMT: external ear and nose normal, oropharynx normal Neck: normal visual inspection Respiratory: on mechanical ventilation Cardiovascular: Rate/Rhythm: + tachycardic and + irregularly irregular Gastrointestinal (Abdomen): normal bowel sounds, soft, nontender, no hepatosplenomegaly Neurologic: sedated Results & Data Vital Signs (Past 12 Hours) Vital Signs Temp Pulse Resp BP Pulse Ox 04/27/19 14:00 98 H 96 04/27/19 13:29 25 H 04/27/19 13:00 96 H 96 04/27/19 12:00 38.2 C H 101 H 96 04/27/19 11:36 89 25 H 97 04/27/19 11:00 99 H 96 04/27/19 10:36 38.8 C H 112 H 95 04/27/19 10:00 38.8 C H 119 H 95 04/27/19 09:40 38.8 C H 122 H 96 04/27/19 09:00 102 H 95 04/27/19 08:00 39.0 C H 103 H 98 04/27/19 07:43 26 H 04/27/19 07:00 119 H 99/57 L 95 04/27/19 06:00 39.4 C H 115 H 103/63 97 04/27/19 05:45 121 H 101/61 97 04/27/19 05:34 117 H 110/63 97 04/27/19 05:15 116 H 115/59 L 98 04/27/19 05:10 116 H 113/52 L 98 04/27/19 05:08 123 H 27 H 97 04/27/19 04:46 125 H 85/49 L 97 04/27/19 04:40 122 H 104/45 L 97 04/27/19 04:31 124 H 107/50 L 97 04/27/19 04:15 115 H 109/62 99 04/27/19 04:00 110 H 115/62 99 04/27/19 03:46 117 H 108/57 L 97 (1) Diabetes mellitus, type 2 Chronic kidney disease stage: stage 3 (moderate) Diabetes mellitus complication detail: with chronic kidney disease Diabetes mellitus complication status: with kidney complications Diabetes mellitus intermediate designer insulin use: with intermediate designer use Qualified Code(s): E11.22 - Type 2 diabetes mellitus with diabetic chronic kidney disease; N18.3 - Chronic kidney disease, stage 3 (moderate); Z79.4 - termination clerk (current) use of insulin (2) Hypothyroidism Hypothyroidism type: unspecified Qualified Code(s): E03.9 - Hypothyroidism, unspecified
[2019-04-27] MEDS ORDERED: DIGOXIN 0.125 MG TAB PO SCH (16:00)
--- NOTE | 2019-04-27 16:02 | Pharmacy Report ---
Pharmacy Abx Dose Short Note - Date of Service April 27, 2019 - Assessment & Plan Assessment * 69 year old M receiving VANCOMYCIN + ZOSYN for septic shock secondary to MSSA bacteremia, necrotic R buttock ulceration with perirectal abscess * Now s/p debridement of ulceration and drainage of abscess * Patient remains intubated at this time, requiring pressor support in the form of Phenylephrine * + h/o CKD 3, SCr 2.98 at this time, U.O. reported to be 60cc/hr this AM, MAPs now >65 * Febrile, + leukocytosis, + elevated procalcitonin * BLCXs x 2 growing staph aureus, PCR testing reveals MSSA * Nasal MRSA swab was also negative for MRSA * Abscess cx pending Plan Vancomycin * Loading dose: 2750mg (~17mg/kg) given x 1 given yesterday @~1730 * Random level at ~0200 today = 28.5 mcg/mL * 2nd Random level at ~1400 today = 13.5 mcg/mL * Based upon these levels and increased U.O. in the setting of improved MAPs, would expect half life to be ~10-12 hrs * Will redose vancomycin 2250mg (~13.5mg/kg) x 1 and repeat random level w/ AM labs tomorrow (likely to be ~12 hrs from the administration of this dose) * Goal trough level for bacteremia : 15 to 20 mcg/mL Zosyn * eCrCl > 20cc/min, + critical illness, + BMI > 35, continue 4.5gm ext infusion Q 8 hrs Pharmacy will continue to follow and will adjust dose/frequency as necessary. Thank you.
[2019-04-27] MEDS: DIGOXIN 0.125 MG/2.5 ML UDP PO SCH (16:04)
[2019-04-27] MEDS ORDERED: VANCOMYCIN HCL 2,250 MG in SODIUM CHLORIDE 0.9% 500 ML IV ONE (16:15)
[2019-04-27] MEDS ORDERED: ACETAMINOPHEN 65 ML IV PRN (16:30)
[2019-04-27] MEDS: HEPARIN SODIUM/DEXTROSE 25,000 UNITS/500 ML BAG IV SCH (17:34)
[2019-04-27] MEDS ORDERED: MIDAZOLAM HCL 5 MG/ML 1 ML VIAL ONE (17:55)
[2019-04-27 18:09] LABS: Albumin Level 2.3 gm/dl (3.4-5.0); BUN Creatinine Ratio 20.8 (10-20); Calcium 8.2 mg/dl (8.5-10.1); Creatinine Clr Calc Pharmacy 48.7 ml/min; Est GFR (African American) 33.7; Est GFR (Non-African American) 29.1
[2019-04-27 18:11] LABS: Partial Thromboplastin Ratio 3.5
[2019-04-27 18:12] LABS: Albumin Globulin Ratio 0.6 (0.9-2); Bilirubin,Total 1.7 mg/dl (0.2-1); Globulin 3.8 gm/dl (2.5-4.0); Total Protein 6.1 gm/dl (6.4-8.2)
[2019-04-27 18:18] LABS: Partial Thromboplastin Time 95.7 Seconds (21.0-31.0)
[2019-04-27] MEDS: POTASSIUM CHLORIDE / WTR 20 MEQ/100 ML PLCT IV SCH ×2 (19:39→21:34)
[2019-04-27] MEDS: MIDAZOLAM HCL 5 MG/ML 1 ML VIAL IV PRN (21:42)
[2019-04-28] MEDS: ESMOLOL / NSS 2,500 MG/250 ML BAG IV PRN (01:20)
[2019-04-28 01:33] LABS: Partial Thromboplastin Ratio 2.9
[2019-04-28 01:39] LABS: Partial Thromboplastin Time 78.1 Seconds (21.0-31.0)
[2019-04-28] MEDS ORDERED: METOPROLOL TARTRATE 50 MG TAB PO STA (02:04)
[2019-04-28] MEDS: PIPERACILLIN/TAZOBACTAM 4.5 GM in DEXTROSE 5% 100 ML IV SCH ×3 (02:07→17:29)
[2019-04-28] MEDS: PROPOFOL 1,000 MG/100 ML VIAL IV SCH ×6 (02:53→21:32)
[2019-04-28 04:21] LABS: Basophils # (auto) 0.01 K/uL (0-0.2); Basophils % (auto) 0.1 %; Eosinophils # (auto) 0.04 K/uL (0-0.5); Eosinophils % (auto) 0.6 %; Hematocrit (blood only) 40.2 % (42-52); Hemoglobin 13.1 g/dL (14.0-18.0); Immature Granulocytes # (auto) 0.03 K/uL (0.00-0.02); Immature Granulocytes % (auto) 0.4 %; Lymphocytes # (auto) 1.01 K/uL (1.2-3.4); Lymphocytes % (auto) 15.1 %; Mean Corpuscular Hemoglobin 29.8 pg (25-34); Mean Corpuscular Hgb Conc 32.6 g/dL (32-36); Mean Corpuscular Volume 91.4 fL (80-100); Mean Platelet Volume 11.3 fL (7.4-10.4); Monocytes # (auto) 0.99 K/uL (0.11-0.59); Monocytes % (auto) 14.8 %; Neutrophils # (auto) 4.59 K/uL (1.4-6.5); Platelet Count 108 K/uL (130-400); RDW Coefficient of Variation 15.6 % (11.5-14.5); RDW Standard Deviation 52.5 fL (36.4-46.3); White Blood Count 6.67 K/uL (4.8-10.8)
[2019-04-28 04:40] LABS: Albumin Level 2.2 gm/dl (3.4-5.0); BUN Creatinine Ratio 20.3 (10-20); Creatinine Clr Calc Pharmacy 62.3 ml/min; Est GFR (African American) 45.4; Est GFR (Non-African American) 39.1; Magnesium 2.2 mg/dl (1.8-2.4); Potassium 3.3 mmol/L (3.5-5.1)
[2019-04-28 04:44] LABS: Albumin Globulin Ratio 0.6 (0.9-2); Beta-Hydroxybutyrate 1.49 mg/dl (0.2-2.81); Bilirubin,Total 1.1 mg/dl (0.2-1); Globulin 3.8 gm/dl (2.5-4.0)
[2019-04-28] MEDS ORDERED: POTASSIUM CHLORIDE 20 MEQ/15 ML UDC PO STA (05:09)
[2019-04-28] MEDS: POTASSIUM CHLORIDE / WTR 20 MEQ/100 ML PLCT IV SCH ×2 (05:18→07:38)
[2019-04-28 05:36] LABS: iSTAT Art Bld Gas pCO2 Correct 41 mmHg (35-46); iSTAT Art Bld Gas pH Corrected 7.348 (7.35-7.45); iSTAT Arterial Blood Gas HCO3 23 meg/L (19-24); iSTAT Arterial Blood Gas pCO2 40 mmHg (35-46); iSTAT Arterial Blood Gas pH 7.36 (7.35-7.45); iSTAT Arterial Blood Gas pO2 80 mmHg (80-95); iSTAT Arterial Blood Gas pO2 C 83; iSTAT Carbon Dioxide 24 mEq/l (24-31); iSTAT FiO2 40 %; iSTAT Hematocrit 39 % (42-52); iSTAT Hemoglobin 13.3 g/dl (14.0-18.0); iSTAT Potassium 3.2 mEq/L (3.3-5.0); iSTAT Site Art Line; iSTAT Sodium 134 mEq/L (135-144)
[2019-04-28] MEDS: MIDAZOLAM HCL 5 MG/ML 1 ML VIAL IV PRN (06:30)
--- NOTE | 2019-04-28 07:23 | XRay Report ---
XR chest 1V portable CLINICAL HISTORY: Respiratory failure. COMPARISON STUDY: Chest radiograph April 27, 2017. FINDINGS: Tip of endotracheal tube is 3.8 cm above the alexandra. There is no pneumothorax. Tip of left internal jugular central line projects over the proximal SVC. A dual lead left subclavian pacemaker i s in place. Tip of nasogastric tube is not well visualized on this exam but is at least within the di stal esophagus. Moderate cardiomegaly is unchanged. There are small bilateral pleural effusions. Basi lar opacities persist. Pulmonary edema is again noted. A left midlung airspace opacity has developed. There are old right rib fractures. IMPRESSION: 1. Tip of endotracheal tube 3.8 cm above the alexandra. 2. Persistent pulmonary edema. 3. Slight increase in bibasilar opacities which may reflect pneumonia or atelectasis. Interval develo pment of a left midlung airspace opacity. 2. Small bilateral pleural effusions. No pneumothorax. Electronically signed by: Basil Hills M.D. 04/28/2019 7:22 AM
[2019-04-28] MEDS ORDERED: VANCOMYCIN HCL 2,250 MG in SODIUM CHLORIDE 0.9% 500 ML IV ONE (07:30)
[2019-04-28] MEDS ORDERED: SODIUM BICARB 8.4% INJ 50 MEQ/50 ML SYR IV STA (07:39)
[2019-04-28] MEDS ORDERED: CALCIUM CHLORIDE 10% 1,000 MG in SODIUM CHLORIDE 0.9% 50 ML IV STA (07:46)
--- NOTE | 2019-04-28 08:19 | Critical Care Progress Note ---
Date of Service April 28, 2019 Assessment & Plan (1) Admitted to intensive care unit: Reason Critically Ill: 69-year-old male with diabetes and morbid obesity admitted with mild DKA, acute kidney injury, and severe sepsis 2/2 deep soft tissue infection s/p debridement 04/26. He is currently ventilated and on pressors, weaning off NEURO Sedation with propofol CV Afib w/ RVR- likely 2/2 DKA, dehydration, sepsis, significant acute renal failure, respiratory distress Continue Dig. Added PO Metoprolol 75 mg q6h Anticoagulated on Coumadin, INR 1.3; started on IV heparin bridge 2/2 high [id number] and history of PE Reasonable to keep HR <120 Appreciate Cardiology recommendations Elevated Trop- likely 2/2 rhabdomyolysis and acute renal failure ECHO reviewed HLD, HTN, CAD- Cont home Aspirin, holding statin, beta-flo CHF- ECHO November 2018: Mildly reduced EF, grade 1 diastolic dysfunction. As below, holding home diuretics due to ALMA ROSA PULM CXR- Mild pulmonary vascular congestion. Repeat showed interval development of pulmonary edema On Mech Vent currently. On home O2 at baseline Failed SBT today , tachypnea COPD- stable SALAS- CPAP HS when able ABD/GI Elevated LFT's- likely 2/2 hypoperfusion, sepsis Liver U/S- Fatty infiltration of the liver and hepatomegaly Start tube feeds at trickle, going up today /RENAL CKD III, GFR 30-59 ml/min ALMA ROSA- Baseline creatinine ~1.3. Cr 2.7 on admit. ARF suspect hypoperfusion, ATN Hold home furosemide and spironolactone Appears to be intravascularly dry, bolused with 500 ml+albumin and 1000 ml today with good response in BP/HR Fena 0.3- supports prerenal etiology as demonstrated above ENDO DM2- Elevated BSG 2/2 insulin pump being disconnected overnight. BSG 521 on admit Normal pH and bicarb, elevated AG 16 and b-hydroxybutyric acid 15 (normalized now) ICU Hyperglycemic protocol- insulin gtt right now Will watch volume status 2/2 pulmonary edema and h/o CHF A1C 9.5 Hypothyroidism- Cont levothyroxine ID Concern for Sepsis-Lactic acid 6.6, WBC 15 K, tachycardic; afebrile, BP low- normal on admit. Serum procalcitonin elevated. Etiology likely 2/2 perirectal abscess. Doubt aspiration PNA vs biliary (h/o cholecystectomy) 04/26 debridement necrotic R buttock ulceration; drainage of perirectal abscess; incision of thrombosed hemorrhoid. No wound vac 2/2 proximity to rectum CXR- No evidence of focal pulmonary consolidation Elevated LFT- Liver U/S- reviewed as above Cont IV Zosyn. DC'd Vanc Wound cx- Staph Aureus . Urine cultures- pending. Blood cx- Staph Aureus LA WNL now Repeat blood cx pending HEME Stable H/H. No concern for acute bleeding Trend Daily CBC's LINES: PIVx3, L IJ CVC, A-line DVT Prophylaxis: Heparin FULL CODE DISPO: ICU Supervising Physician Co-Signing Physician Notes Patient seen and examined. EMR reviewed. Imaging studies independently reviewed. Discussed with cardiology and general surgery and with the [facility] resident on rounds and on multidisciplinary Impression: 69-year-old male with diabetes and morbid obesity admitted with mild DKA, acute kidney injury, and severe sepsis likely secondary to deep soft tissue infection. Status post urgent debridement 04/26. He is currently ventilated and on pressors but appears to be improving. Recommendations: 1. Respiratory failure: Continue mechanical ventilation for now. Blood gas is appropriate. Attempted SBT today but the patient failed due to tachypnea. Patient was 4 L positive yesterday with improvement in his serum creatinine and hemodynamics. We may need to consider diuresis at some point but will hold off pending stability in his hemodynamic parameters 2. Severe sepsis: Suspect related to deep soft tissue infection. Wound was reexamined by general surgery today and they do not feel the need for additional debridement. OR cultures are growing methicillin sensitive staph as well. Assessed for wound VAC today but given the proximity of the wound to the rectum, it was not felt that a wound VAC could be applied. We broached the topic of diverting colostomy however the surgeons would like to see how he does with wet-to-dry dressings for now. Day # 3 Zosyn. Methicillin sensitive staph identified will discontinue vancomycin. Check surveillance cultures and if persistently positive may need to change lines, pursue transesophageal echocardiogram, and MRI of the spine to evaluate for secondary seeding. ID consultation may also be required. Random cortisol was normal. Weaning Girish- Synephrine as tolerated. 3. Mild DKA: Continue insulin infusion. Increasing tube feeds to goal. Beta hydroxybutyrate has normalized 4. Atrial fibrillation with rapid ventricular response: The patient is in chronic intermittent A. fib in the outpatient setting. He does have a pacemaker in place. Better control today. Added oral metoprolol and discontinued esmolol. We will continue digoxin after consultation with cardiology. Continue heparin drip for now. 5. Acute kidney injury: Superimposed on chronic kidney disease. Suspect component of ATN although could have some component of prerenal. Urine output better. CPK remains markedly elevated today almost doubling since yesterday despite good urine output. May be related to the wound. Will trend in the a.m. 6. DVT and GI prophylaxis have been initiated and are appropriate. 7. Leukocytosis: Likely reactive secondary to infectious etiologies. Continue to trend over time. 8. Abnormal LFTs: AST remains mildly elevated. ALT and total bili decreasing. Patient's daughters and caregiver were updated at bedside. He remains critically ill with significant possibility of clinical deterioration. Subjective 69 yo M found in bed this AM. No reported acute overnight events. Still on phenyl, propofol. Required pushes of fentanyl/versed overnight. Tolerating tube feeds. No other acute concerns or complaints. Review of Systems Review of Systems: Unobtainable due to endotracheal tube Physical Exam Constitutional: + ill appearing, + morbidly obese and + mechanically ventilated ENMT: external ear and nose normal, oropharynx normal Respiratory: + tachypneic Auscultation: lungs clear to auscultation bilaterally Cardiovascular: Rate/Rhythm: + tachycardic and + irregularly irregular Gastrointestinal (Abdomen): normal bowel sounds, soft, nontender, no hepatosplenomegaly Skin: no rashes, warm and dry dressing C/D/I Lymphatic: chronic venous stasis changes LE Results & Data Vital Signs (Past 12 Hours) Vital Signs Temp Pulse Pulse Resp BP Pulse Ox 04/28/19 07:20 36 H 04/28/19 06:00 37.3 C 98 H 30 H 105/58 L 96 04/28/19 05:37 96 H 25 H 95 04/28/19 05:00 37.6 C H 81 25 H 104/51 L 95 04/28/19 04:00 37.8 C H 85 25 H 114/55 L 96 04/28/19 03:00 38.2 C H 103 H 25 H 107/55 L 95 04/28/19 02:15 102 H 27 H 97 04/28/19 02:00 38.2 C H 100 H 27 H 111/51 L 97 04/28/19 01:00 38.3 C H 111 H 25 H 108/50 L 97 04/28/19 00:00 38.5 C H 100 H 25 H 136/57 L 97 04/27/19 23:24 112 H 25 H 95 04/27/19 23:00 38.5 C H 109 H 24 115/44 L 97 04/27/19 22:00 38.4 C H 111 H 25 H 118/45 L 97 04/27/19 21:00 38.3 C H 101 H 25 H 106/47 L 95 Laboratory Results Laboratory Results - last 24 hr 04/27/19 04/27/19 04/27/19 17:31 17:42 17:42 WBC RBC Hgb POC Hgb Hct POC Hct MCV MCH MCHC RDW Std Deviation RDW Coeff of Baldo Plt Count MPV Immature Gran % (Auto) Neut % (Auto) Lymph % (Auto) [place] % (Auto) Eos % (Auto) Baso % (Auto) Immature Gran # (Auto) Neut # (Auto) Lymph # (Auto) [place] # (Auto) Eos # (Auto) Baso # (Auto) PT INR APTT 95.7 H* PTT Ratio 3.5 Sample Site POC pH POC pCO2 POC pO2 POC HCO3 POC Total CO2 POC Base Excess ABG pH (Temp Correct) ABG pCO2 (Temp Corrct POC ABG pO2 at Pt Temp Sam Test O2 Delivery Device POC O2 Rate Minute Ventilation POC FiO2 Tidal Volume PEEP POC Sodium Sodium 131 L POC Potassium Potassium 3.0 L Chloride 100 Carbon Dioxide 22 Anion Gap 9.0 BUN 47 H Creatinine 2.25 H D Est Cr Clr Drug Dosing 48.7 Est GFR ( Amer) 33.7 Est GFR (Non-Af Amer) 29.1 BUN/Creatinine Ratio 20.8 H Glucose 250 H POC Glucose (other) 256 H Calcium 8.2 L Phosphorus Magnesium Total Bilirubin 1.7 H AST 267 H ALT 63 Alkaline Phosphatase 81 Total Creatine Kinase Total Protein 6.1 L Albumin 2.3 L Globulin 3.8 Albumin/Globulin Ratio 0.6 L Beta-Hydroxybutyric Acd Random Vancomycin Digoxin 04/27/19 04/27/19 04/27/19 17:42 18:45 19:45 WBC RBC Hgb POC Hgb Hct POC Hct MCV MCH MCHC RDW Std Deviation RDW Coeff of Baldo Plt Count MPV Immature Gran % (Auto) Neut % (Auto) Lymph % (Auto) [place] % (Auto) Eos % (Auto) Baso % (Auto) Immature Gran # (Auto) Neut # (Auto) Lymph # (Auto) [place] # (Auto) Eos # (Auto) Baso # (Auto) PT INR APTT PTT Ratio Sample Site POC pH POC pCO2 POC pO2 POC HCO3 POC Total CO2 POC Base Excess ABG pH (Temp Correct) ABG pCO2 (Temp Corrct POC ABG pO2 at Pt Temp Sma Test O2 Delivery Device POC O2 Rate Minute Ventilation POC FiO2 Tidal Volume PEEP POC Sodium Sodium POC Potassium Potassium Chloride Carbon Dioxide Anion Gap BUN Creatinine Est Cr Clr Drug Dosing Est GFR ( Amer) Est GFR (Non-Af Amer) BUN/Creatinine Ratio Glucose POC Glucose (other) 234 H 219 H Calcium Phosphorus Magnesium 2.2 Total Bilirubin AST ALT Alkaline Phosphatase Total Creatine Kinase Total Protein Albumin Globulin Albumin/Globulin Ratio Beta-Hydroxybutyric Acd Random Vancomycin Digoxin 04/27/19 04/27/19 04/28/19 21:14 23:00 01:01 WBC RBC Hgb POC Hgb Hct POC Hct MCV MCH MCHC RDW Std Deviation RDW Coeff of Baldo Plt Count MPV Immature Gran % (Auto) Neut % (Auto) Lymph % (Auto) [place] % (Auto) Eos % (Auto) Baso % (Auto) Immature Gran # (Auto) Neut # (Auto) Lymph # (Auto) [place] # (Auto) Eos # (Auto) Baso # (Auto) PT INR APTT 78.1 H* PTT Ratio 2.9 Sample Site POC pH POC pCO2 POC pO2 POC HCO3 POC Total CO2 POC Base Excess ABG pH (Temp Correct) ABG pCO2 (Temp Corrct POC ABG pO2 at Pt Temp Sam Test O2 Delivery Device POC O2 Rate Minute Ventilation POC FiO2 Tidal Volume PEEP POC Sodium Sodium POC Potassium Potassium Chloride Carbon Dioxide Anion Gap BUN Creatinine Est Cr Clr Drug Dosing Est GFR ( Amer) Est GFR (Non-Af Amer) BUN/Creatinine Ratio Glucose POC Glucose (other) 199 H 178 H Calcium Phosphorus Magnesium Total Bilirubin AST ALT Alkaline Phosphatase Total Creatine Kinase Total Protein Albumin Globulin Albumin/Globulin Ratio Beta-Hydroxybutyric Acd Random Vancomycin Digoxin 04/28/19 04/28/19 04/28/19 01:05 03:42 04:10 WBC RBC Hgb POC Hgb Hct POC Hct MCV MCH MCHC RDW Std Deviation RDW Coeff of Blado Plt Count MPV Immature Gran % (Auto) Neut % (Auto) Lymph % (Auto) [place] % (Auto) Eos % (Auto) Baso % (Auto) Immature Gran # (Auto) Neut # (Auto) Lymph # (Auto) [place] # (Auto) Eos # (Auto) Baso # (Auto) PT INR APTT PTT Ratio Sample Site POC pH POC pCO2 POC pO2 POC HCO3 POC Total CO2 POC Base Excess ABG pH (Temp Correct) ABG pCO2 (Temp Corrct POC ABG pO2 at Pt Temp Sam Test O2 Delivery Device POC O2 Rate Minute Ventilation POC FiO2 Tidal Volume PEEP POC Sodium Sodium POC Potassium Potassium Chloride Carbon Dioxide Anion Gap BUN Creatinine Est Cr Clr Drug Dosing Est GFR ( Amer) Est GFR (Non-Af Amer) BUN/Creatinine Ratio Glucose POC Glucose (other) 161 H 145 H Calcium Phosphorus Magnesium Total Bilirubin AST ALT Alkaline Phosphatase Total Creatine Kinase Total Protein Albumin Globulin Albumin/Globulin Ratio Beta-Hydroxybutyric Acd Random Vancomycin Digoxin 0.5 L 04/28/19 04/28/19 04/28/19 04:10 04:10 04:10 WBC 6.67 RBC 4.40 L Hgb 13.1 L POC Hgb Hct 40.2 L POC Hct MCV 91.4 MCH 29.8 MCHC 32.6 RDW Std Deviation 52.5 H RDW Coeff of Baldo 15.6 H Plt Count 108 L MPV 11.3 H Immature Gran % (Auto) 0.4 Neut % (Auto) 69.0 Lymph % (Auto) 15.1 [place] % (Auto) 14.8 Eos % (Auto) 0.6 Baso % (Auto) 0.1 Immature Gran # (Auto) 0.03 H Neut # (Auto) 4.59 Lymph # (Auto) 1.01 L [place] # (Auto) 0.99 H Eos # (Auto) 0.04 Baso # (Auto) 0.01 PT INR APTT PTT Ratio Sample Site POC pH POC pCO2 POC pO2 POC HCO3 POC Total CO2 POC Base Excess ABG pH (Temp Correct) ABG pCO2 (Temp Corrct POC ABG pO2 at Pt Temp Sam Test O2 Delivery Device POC O2 Rate Minute Ventilation POC FiO2 Tidal Volume PEEP POC Sodium Sodium 133 L POC Potassium Potassium 3.3 L Chloride 103 Carbon Dioxide 22 Anion Gap 8.0 BUN 36 H Creatinine 1.76 H D Est Cr Clr Drug Dosing 62.3 Est GFR ( Amer) 45.4 Est GFR (Non-Af Amer) 39.1 BUN/Creatinine Ratio 20.3 H Glucose 135 H POC Glucose (other) Calcium 8.0 L Phosphorus Magnesium 2.2 Total Bilirubin 1.1 H AST 275 H ALT 69 Alkaline Phosphatase 76 Total Creatine Kinase Total Protein 6.0 L Albumin 2.2 L Globulin 3.8 Albumin/Globulin Ratio 0.6 L Beta-Hydroxybutyric Acd 1.49 Random Vancomycin 18.6 Digoxin 04/28/19 04/28/19 04/28/19 04:10 05:19 05:23 WBC RBC Hgb POC Hgb 13.3 L Hct POC Hct 39 L MCV MCH MCHC RDW Std Deviation RDW Coeff of Baldo Plt Count MPV Immature Gran % (Auto) Neut % (Auto) Lymph % (Auto) [place] % (Auto) Eos % (Auto) Baso % (Auto) Immature Gran # (Auto) Neut # (Auto) Lymph # (Auto) [place] # (Auto) Eos # (Auto) Baso # (Auto) PT INR APTT PTT Ratio Sample Site Art Line POC pH 7.36 POC pCO2 40 POC pO2 80 POC HCO3 23 POC Total CO2 24 POC Base Excess -3.0 ABG pH (Temp Correct) 7.348 L ABG pCO2 (Temp Corrct 41 POC ABG pO2 at Pt Temp 83 Sam Test NA O2 Delivery Device Ventilator POC O2 Rate 25 Minute Ventilation 12.5 POC FiO2 40 Tidal Volume 500 PEEP 8 POC Sodium 134 L Sodium POC Potassium 3.2 L Potassium Chloride Carbon Dioxide Anion Gap BUN Creatinine Est Cr Clr Drug Dosing Est GFR ( Amer) Est GFR (Non-Af Amer) BUN/Creatinine Ratio Glucose POC Glucose (other) 135 H Calcium Phosphorus 3.0 Magnesium Total Bilirubin AST ALT Alkaline Phosphatase Total Creatine Kinase Total Protein Albumin Globulin Albumin/Globulin Ratio Beta-Hydroxybutyric Acd Random Vancomycin Digoxin 04/28/19 04/28/19 04/28/19 08:07 08:07 08:15 WBC RBC Hgb POC Hgb Hct POC Hct MCV MCH MCHC RDW Std Deviation RDW Coeff of Baldo Plt Count MPV Immature Gran % (Auto) Neut % (Auto) Lymph % (Auto) [place] % (Auto) Eos % (Auto) Baso % (Auto) Immature Gran # (Auto) Neut # (Auto) Lymph # (Auto) [place] # (Auto) Eos # (Auto) Baso # (Auto) PT 17.9 H INR 1.8 H APTT 65.1 H* PTT Ratio 2.4 Sample Site POC pH POC pCO2 POC pO2 POC HCO3 POC Total CO2 POC Base Excess ABG pH (Temp Correct) ABG pCO2 (Temp Corrct POC ABG pO2 at Pt Temp Sam Test O2 Delivery Device POC O2 Rate Minute Ventilation POC FiO2 Tidal Volume PEEP POC Sodium Sodium POC Potassium Potassium Chloride Carbon Dioxide Anion Gap BUN Creatinine Est Cr Clr Drug Dosing Est GFR ( Amer) Est GFR (Non-Af Amer) BUN/Creatinine Ratio Glucose POC Glucose (other) 124 H Calcium Phosphorus Magnesium Total Bilirubin AST ALT Alkaline Phosphatase Total Creatine Kinase 3763 H Total Protein Albumin Globulin Albumin/Globulin Ratio Beta-Hydroxybutyric Acd Random Vancomycin Digoxin 04/28/19 04/28/19 04/28/19 10:38 12:49 14:52 WBC RBC Hgb POC Hgb Hct POC Hct MCV MCH MCHC RDW Std Deviation RDW Coeff of Baldo Plt Count MPV Immature Gran % (Auto) Neut % (Auto) Lymph % (Auto) [place] % (Auto) Eos % (Auto) Baso % (Auto) Immature Gran # (Auto) Neut # (Auto) Lymph # (Auto) [place] # (Auto) Eos # (Auto) Baso # (Auto) PT INR APTT PTT Ratio Sample Site POC pH POC pCO2 POC pO2 POC HCO3 POC Total CO2 POC Base Excess ABG pH (Temp Correct) ABG pCO2 (Temp Corrct POC ABG pO2 at Pt Temp Sam Test O2 Delivery Device POC O2 Rate Minute Ventilation POC FiO2 Tidal Volume PEEP POC Sodium Sodium POC Potassium Potassium Chloride Carbon Dioxide Anion Gap BUN Creatinine Est Cr Clr Drug Dosing Est GFR ( Amer) Est GFR (Non-Af Amer) BUN/Creatinine Ratio Glucose POC Glucose (other) 114 H 113 H 103 H Calcium Phosphorus Magnesium Total Bilirubin AST ALT Alkaline Phosphatase Total Creatine Kinase Total Protein Albumin Globulin Albumin/Globulin Ratio Beta-Hydroxybutyric Acd Random Vancomycin Digoxin 04/28/19 15:50 WBC RBC Hgb POC Hgb Hct POC Hct MCV MCH MCHC RDW Std Deviation RDW Coeff of Baldo Plt Count MPV Immature Gran % (Auto) Neut % (Auto) Lymph % (Auto) [place] % (Auto) Eos % (Auto) Baso % (Auto) Immature Gran # (Auto) Neut # (Auto) Lymph # (Auto) [place] # (Auto) Eos # (Auto) Baso # (Auto) PT INR APTT PTT Ratio Sample Site POC pH POC pCO2 POC pO2 POC HCO3 POC Total CO2 POC Base Excess ABG pH (Temp Correct) ABG pCO2 (Temp Corrct POC ABG pO2 at Pt Temp Sam Test O2 Delivery Device POC O2 Rate Minute Ventilation POC FiO2 Tidal Volume PEEP POC Sodium Sodium POC Potassium Potassium Chloride Carbon Dioxide Anion Gap BUN Creatinine Est Cr Clr Drug Dosing Est GFR ( Amer) Est GFR (Non-Af Amer) BUN/Creatinine Ratio Glucose POC Glucose (other) 107 H Calcium Phosphorus Magnesium Total Bilirubin AST ALT Alkaline Phosphatase Total Creatine Kinase Total Protein Albumin Globulin Albumin/Globulin Ratio Beta-Hydroxybutyric Acd Random Vancomycin Digoxin Medications Administered Current Inpatient Medications Allopurinol (Zyloprim) 300 mg PO QPM [facility] Stop: 05/26/19 20:59 Last Admin: 04/26/19 21:28 Dose: 300 mg Documented by: Aspirin (Aspirin Chew) 81 mg PO QAM [facility] Stop: 05/27/19 08:59 Last Admin: 04/27/19 09:32 Dose: 81 mg Documented by: Atorvastatin Calcium (Lipitor) 10 mg PO QAM [facility] Stop: 05/27/19 08:59 Bupropion HCl (Wellbutrin-Xl) 150 mg PO QAM [facility] Stop: 05/27/19 08:59 Last Admin: 04/27/19 09:56 Dose: Not Given Documented by: Dextrose (Dextrose 50%) 25 - 50 ml IV UD PRN; Protocol PRN Reason: Hypoglycemia Protocol Stop: 05/26/19 13:14 Digoxin (Lanoxin) 0.125 mg PO DAILY@1600 [facility] Stop: 04/29/19 11:55 Last Admin: 04/28/19 15:16 Dose: 0.125 mg Documented by: Duloxetine HCl (Cymbalta) 60 mg PO QAM [facility] Stop: 05/27/19 08:59 Last Admin: 04/27/19 09:56 Dose: Not Given Documented by: Fentanyl Citrate (Fentanyl Citrate) 50 mcg IV Q2H PRN PRN Reason: Pain Stop: 05/11/19 14:22 Last Admin: 04/28/19 14:58 Dose: 50 mcg Documented by: Gabapentin (Neurontin) 100 mg PO TID [facility] Stop: 05/26/19 14:59 Last Admin: 04/27/19 13:26 Dose: 100 mg Documented by: Glucagon (Glucagen) 1 mg IM UD PRN; Protocol PRN Reason: Hypoglycemia Protocol Stop: 05/26/19 13:14 Glucose (Glucose 40%) 15 - 30 gm PO UD PRN; Protocol PRN Reason: Hypoglycemia Protocol Stop: 05/26/19 13:14 Glucose (Dex4 Glucose) 4 - 8 tabs PO UD PRN; Protocol PRN Reason: Hypoglycemia Protocol Stop: 05/26/19 13:14 Insulin Human Regular 250 (units/ Sodium Chloride) 250 mls @ 12.1 mls/hr IV .[id number] [facility]; Protocol Stop: 05/26/19 12:59 Last Titration: 04/28/19 14:59 Dose: 12.1 units/hr, 12.1 mls/hr Documented by: Heparin Sodium/Dextrose (Heparin Sodium/Dextrose) 25,000 units in 500 mls @ 27 mls/hr IV .[id number] OFE; Protocol Stop: 05/26/19 14:09 Last Admin: 04/28/19 09:08 Dose: 1,350 units/hr, 27 mls/hr Documented by: Piperacillin Sod/Tazobactam (Sod 4.5 gm/ Dextrose) 120 mls @ 30 mls/hr IV Q8H [facility]; Protocol Stop: 05/03/19 17:59 Last Infusion: 04/28/19 13:59 Dose: Infused Documented by: Propofol (Diprivan) 1,000 mg in 100 mls @ 29.592 mls/hr IV .[id number] [facility]E; Protocol Stop: 04/29/19 21:24 Last Admin: 04/28/19 15:14 Dose: 30 mcg/kg/min, 29.6 mls/hr Documented by: Famotidine 20 mg/ Syringe 5 mls @ 2.5 mls/min IV BID [facility] Stop: 05/27/19 08:59 Last Admin: 04/28/19 08:39 Dose: 2.5 mls/min Documented by: Lactated Ringer's (Lr) 1,000 mls @ 80 mls/hr IV .[id number] [facility] Stop: 05/28/19 12:29 Last Admin: 04/28/19 12:55 Dose: 80 mls/hr Documented by: Phenylephrine HCl 40 mg/ (Dextrose) 254 mls @ 12.53 mls/hr IV .[id number] [facility]; Protocol Stop: 05/28/19 12:44 Last Titration: 04/28/19 15:06 Dose: 0.2 mcg/kg/min, 12.5 mls/hr Documented by: Insulin Aspart (Novolog Flexpen) 0 units SC ACHS [facility] Stop: 05/26/19 16:29 Last Admin: 04/28/19 08:36 Dose: Not Given Documented by: Levothyroxine Sodium (Synthroid) [facility] Stop: 05/27/19 06:29 Last Admin: 04/27/19 06:23 Dose: 50 mcg Documented by: Levothyroxine Sodium (Synthroid) 200 [facility] Stop: 05/27/19 06:29 Last Admin: 04/27/19 06:23 Dose: 200 mcg Documented by: Magnesium Oxide (Mag-Ox) 400 mg PO DAILY [facility] Stop: 05/27/19 08:59 Last Admin: 04/27/19 09:32 Dose: 400 mg Documented by: Metoprolol Tartrate (Lopressor) 5 mg IV Q5M PRN PRN Reason: HR>130 Last Admin: 04/26/19 22:12 Dose: 5 mg Documented by: Metoprolol Tartrate (Lopressor) 50 mg NG Q6H [facility] Stop: 05/28/19 11:59 Last Admin: 04/28/19 11:24 Dose: 50 mg Documented by: Midazolam HCl (Versed) 2 - 4 mg IV Q2HWA PRN PRN Reason: Agitation Stop: 05/27/19 17:49 Last Admin: 04/28/19 06:30 Dose: 2 mg Documented by: Miscellaneous (Carbohydrates For Hypoglycemia) 15 - 30 gm PO PRN PRN PRN Reason: Hypoglycemia Treatment Stop: 05/26/19 13:14 Miscellaneous Information (Consult) 1 ea N/A UD PRN PRN Reason: Consult Stop: 05/26/19 11:34 Nutritional Formula (Peptamen Intense Vhp 1.0 Sreedhar) 1,000 ml OG UD [facility]E; Protocol Stop: 05/27/19 10:44 Nystatin (Mycostatin) 1 appln EXT BID PRN PRN Reason: Rash Stop: 05/26/19 14:09 Potassium Chloride (Pily Ciel Elix) 40 meq NG Q6H [facility] Stop: 04/29/19 00:01 Last Admin: 04/28/19 11:26 Dose: 40 meq Documented by: Vitamin D (Vitamin D3) 2,000 units PO DAILY [facility] Stop: 05/27/19 08:59 Last Admin: 04/27/19 09:33 Dose: 2,000 units Documented by: Warfarin Sodium (Coumadin) 8 mg PO DAILY@1600 [facility] Stop: 05/26/19 15:59 Last Admin: 04/26/19 15:39 Dose: 8 mg Documented by: PG Care Time/CCT Total # of Minutes Spent Total Time Spent with Patient: Total time spent is greater than 50% in coordination of care (as documented) at patient's floor/unit and/or counseling patient: Critical Care Time: Yes Total Critical Care Time: 50 Resident Activity Tracking Resident Involvement: Resident Care Provided Care Provided: Adult Hospital Medicine
[2019-04-28] MEDS: INSULIN REGULAR 250 UNITS in SODIUM CHLORIDE 0.9% 247.5 ML IV SCH ×2 (08:30→09:09)
--- NOTE | 2019-04-28 08:32 | Cardiology Progress Note ---
Date of Service April 28, 2019 Assessment & Plan (1) Atrial fibrillation with RVR: rates now improved esmolol titrated off receiving metoprolol and dig via NGT concern with dig given renal impairment, will give 3 days then hold and follow check dig level in a few days no signs of dig toxicity at this time: potassium level remains low, QTc stable, no ventricular arrhythmias cont heparin for now, unclear if further surgical intervention may be necessary if deemed no further surgeries necessary, can restart warfarin and follow INR closely His QRS morphology is wide however 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 fib burden. (2) Decubitus ulcer: s/p resection likely nidus of events (3) Acute kidney injury superimposed on CKD: improvi (4) Elevated troponin: I do not see any signs of active cardiac ischemia and believe this is due to his rhabdomyolysis and acute renal failure. 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 EMR reviewed. Imaging studies independently reviewed. Discussed with cardiology and general surgery and with the family practice resident on rounds and on multidisciplinary Impression: 69-year-old male with diabetes admitted with mild DKA, acute kidney injury, and severe sepsis likely secondary to deep soft tissue infection. Status post urgent debridement last evening. He is currently ventilated and on pressors but appears to be improving. Recommendations: 1. Respiratory failure: Continue mechanical ventilation for now. Blood gas is appropriate. Will hold on weaning until the patient's metabolic processes are more stable. 2. Severe sepsis: Suspect related to deep soft tissue infection. Wound was reexamined by general surgery today and they do not feel the need for additional debridement. OR cultures are pending. Plan for potential wound VAC in the a.m. if he does well. Blood cultures are positive for gram-positive cocci. Final speciation and sensitivities pending. Day #2 Zosyn vancomycin. Continue antibiotics for now. Depending on results, may need surveillance cultures, ID consult, and/or echocardiogram although previously windows were quite poor. 3. Mild DKA: Continue insulin infusion. Adding trophic tube feeds for some glucose intake. Will follow beta hydroxybutyrate in the a.m.. 4. Atrial fibrillation with rapid ventricular response: The patient is in chronic intermittent A. fib in the outpatient setting. He does have a pacemaker in place. We will continue digoxin after consultation with cardiology. Wean esmolol as tolerated. Continue heparin drip for now. No role for amiodarone or attempts at cardioversion 5. Acute kidney injury: Superimposed on chronic kidney disease. Suspect component of ATN although could have some component of prerenal. Urine output picking up. Continue to follow for now. 6. DVT and GI prophylaxis have been initiated and are appropriate. 7. Leukocytosis: Likely reactive secondary to infectious etiologies. Continue to trend over time. 8. No family available. Remains critically ill. Subjective Pt seen and examined: intubated, sedated, resting comfortably. Chart reviewed along with events of overnight. tele reviewed: atrial fibrillation with underlying bifasicular block, rates consistently in 90's. Review of Systems Review of Systems: Unobtainable due to endotracheal tube Physical Exam Physical Exam: General: Intubated, sedated. No acute distress. Morbidly obese HEENT: Normocephalic, atraumatic. Pupils equal, round and reactive to light and accommodation. Extraocular muscles are intact. Anicteric sclera. Moist mucous membranes. Neck: No JVD. No bruit. Cardiovascular: irregularly irregular, unable to appreciate murmur, rub or gallop. Pulmonary: Clear to auscultation bilaterally. No rales, rhonchi, or wheezing. Abdomen: Bowel sounds x 4, soft. No rebound, guarding or tenderness. No organomegaly. Extremities: No clubbing, cyanosis or edema. +2 pedal pulses bilaterally. Skin: Warm and dry. Results & Data Vital Signs (Past 12 Hours) Vital Signs Temp Pulse Pulse Resp BP Pulse Ox 04/28/19 07:20 36 H 04/28/19 06:00 37.3 C 98 H 30 H 105/58 L 96 04/28/19 05:37 96 H 25 H 95 04/28/19 05:00 37.6 C H 81 25 H 104/51 L 95 04/28/19 04:00 37.8 C H 85 25 H 114/55 L 96 04/28/19 03:00 38.2 C H 103 H 25 H 107/55 L 95 04/28/19 02:15 102 H 27 H 97 04/28/19 02:00 38.2 C H 100 H 27 H 111/51 L 97 04/28/19 01:00 38.3 C H 111 H 25 H 108/50 L 97 04/28/19 00:00 38.5 C H 100 H 25 H 136/57 L 97 04/27/19 23:24 112 H 25 H 95 04/27/19 23:00 38.5 C H 109 H 24 115/44 L 97 04/27/19 22:00 38.4 C H 111 H 25 H 118/45 L 97 04/27/19 21:00 38.3 C H 101 H 25 H 106/47 L 95 Laboratory Results Laboratory Results - last 24 hr 04/27/19 04/27/19 04/27/19 09:15 09:15 10:17 WBC RBC Hgb POC Hgb Hct POC Hct MCV MCH MCHC RDW Std Deviation RDW Coeff of Baldo Plt Count MPV Immature Gran % (Auto) Neut % (Auto) Lymph % (Auto) Ponce % (Auto) Eos % (Auto) Baso % (Auto) Immature Gran # (Auto) Neut # (Auto) Lymph # (Auto) Ponce # (Auto) Eos # (Auto) Baso # (Auto) PT INR APTT PTT Ratio Sample Site POC pH POC pCO2 POC pO2 POC HCO3 POC Total CO2 POC Base Excess ABG pH (Temp Correct) ABG pCO2 (Temp Corrct POC ABG pO2 at Pt Temp Sam Test O2 Delivery Device POC O2 Rate Minute Ventilation POC FiO2 Tidal Volume PEEP POC Sodium Sodium 128 L POC Potassium Potassium 3.3 L Chloride 96 L Carbon Dioxide 23 Anion Gap 9.0 BUN 55 H Creatinine 2.80 H Est Cr Clr Drug Dosing 39.2 Est GFR ( Amer) 25.9 Est GFR (Non-Af Amer) 22.3 BUN/Creatinine Ratio 19.6 Glucose 258 H POC Glucose (other) Calcium 8.6 Phosphorus Magnesium 2.3 Total Bilirubin 1.9 H AST 207 H ALT 59 Alkaline Phosphatase 89 Total Creatine Kinase Total Protein 6.5 Albumin 2.7 L Globulin 3.8 Albumin/Globulin Ratio 0.7 L Beta-Hydroxybutyric Acd Random Cortisol Ur Random Creatinine 151.0 Ur Random Sodium 20 Cancelled Ur Random Urea Nitrogn 600 Random Vancomycin Digoxin 04/27/19 04/27/19 04/27/19 10:17 10:17 10:27 WBC RBC Hgb POC Hgb Hct POC Hct MCV MCH MCHC RDW Std Deviation RDW Coeff of Baldo Plt Count MPV Immature Gran % (Auto) Neut % (Auto) Lymph % (Auto) Ponce % (Auto) Eos % (Auto) Baso % (Auto) Immature Gran # (Auto) Neut # (Auto) Lymph # (Auto) Ponce # (Auto) Eos # (Auto) Baso # (Auto) PT INR APTT 85.3 H* PTT Ratio 3.1 Sample Site POC pH POC pCO2 POC pO2 POC HCO3 POC Total CO2 POC Base Excess ABG pH (Temp Correct) ABG pCO2 (Temp Corrct POC ABG pO2 at Pt Temp Sam Test O2 Delivery Device POC O2 Rate Minute Ventilation POC FiO2 Tidal Volume PEEP POC Sodium Sodium POC Potassium Potassium Chloride Carbon Dioxide Anion Gap BUN Creatinine Est Cr Clr Drug Dosing Est GFR ( Amer) Est GFR (Non-Af Amer) BUN/Creatinine Ratio Glucose POC Glucose (other) 257 H Calcium Phosphorus Magnesium Total Bilirubin AST ALT Alkaline Phosphatase Total Creatine Kinase Total Protein Albumin Globulin Albumin/Globulin Ratio Beta-Hydroxybutyric Acd Random Cortisol 39.94 Ur Random Creatinine Ur Random Sodium Ur Random Urea Nitrogn Random Vancomycin Digoxin 04/27/19 04/27/19 04/27/19 11:36 12:33 13:35 WBC RBC Hgb POC Hgb Hct POC Hct MCV MCH MCHC RDW Std Deviation RDW Coeff of Baldo Plt Count MPV Immature Gran % (Auto) Neut % (Auto) Lymph % (Auto) Ponce % (Auto) Eos % (Auto) Baso % (Auto) Immature Gran # (Auto) Neut # (Auto) Lymph # (Auto) Ponce # (Auto) Eos # (Auto) Baso # (Auto) PT INR APTT PTT Ratio Sample Site POC pH POC pCO2 POC pO2 POC HCO3 POC Total CO2 POC Base Excess ABG pH (Temp Correct) ABG pCO2 (Temp Corrct POC ABG pO2 at Pt Temp Sam Test O2 Delivery Device POC O2 Rate Minute Ventilation POC FiO2 Tidal Volume PEEP POC Sodium Sodium POC Potassium Potassium Chloride Carbon Dioxide Anion Gap BUN Creatinine Est Cr Clr Drug Dosing Est GFR ( Amer) Est GFR (Non-Af Amer) BUN/Creatinine Ratio Glucose POC Glucose (other) 245 H 252 H 266 H Calcium Phosphorus Magnesium Total Bilirubin AST ALT Alkaline Phosphatase Total Creatine Kinase Total Protein Albumin Globulin Albumin/Globulin Ratio Beta-Hydroxybutyric Acd Random Cortisol Ur Random Creatinine Ur Random Sodium Ur Random Urea Nitrogn Random Vancomycin Digoxin 04/27/19 04/27/19 04/27/19 13:54 14:34 15:31 WBC RBC Hgb POC Hgb Hct POC Hct MCV MCH MCHC RDW Std Deviation RDW Coeff of Baldo Plt Count MPV Immature Gran % (Auto) Neut % (Auto) Lymph % (Auto) Ponce % (Auto) Eos % (Auto) Baso % (Auto) Immature Gran # (Auto) Neut # (Auto) Lymph # (Auto) Ponce # (Auto) Eos # (Auto) Baso # (Auto) PT INR APTT PTT Ratio Sample Site POC pH POC pCO2 POC pO2 POC HCO3 POC Total CO2 POC Base Excess ABG pH (Temp Correct) ABG pCO2 (Temp Corrct POC ABG pO2 at Pt Temp Sam Test O2 Delivery Device POC O2 Rate Minute Ventilation POC FiO2 Tidal Volume PEEP POC Sodium Sodium POC Potassium Potassium Chloride Carbon Dioxide Anion Gap BUN Creatinine Est Cr Clr Drug Dosing Est GFR ( Amer) Est GFR (Non-Af Amer) BUN/Creatinine Ratio Glucose POC Glucose (other) 274 H 277 H Calcium Phosphorus Magnesium Total Bilirubin AST ALT Alkaline Phosphatase Total Creatine Kinase Total Protein Albumin Globulin Albumin/Globulin Ratio Beta-Hydroxybutyric Acd Random Cortisol Ur Random Creatinine Ur Random Sodium Ur Random Urea Nitrogn Random Vancomycin 13.5 Digoxin 04/27/19 04/27/19 04/27/19 16:39 17:31 17:42 WBC RBC Hgb POC Hgb Hct POC Hct MCV MCH MCHC RDW Std Deviation RDW Coeff of Baldo Plt Count MPV Immature Gran % (Auto) Neut % (Auto) Lymph % (Auto) Ponce % (Auto) Eos % (Auto) Baso % (Auto) Immature Gran # (Auto) Neut # (Auto) Lymph # (Auto) Ponce # (Auto) Eos # (Auto) Baso # (Auto) PT INR APTT 95.7 H* PTT Ratio 3.5 Sample Site POC pH POC pCO2 POC pO2 POC HCO3 POC Total CO2 POC Base Excess ABG pH (Temp Correct) ABG pCO2 (Temp Corrct POC ABG pO2 at Pt Temp Sam Test O2 Delivery Device POC O2 Rate Minute Ventilation POC FiO2 Tidal Volume PEEP POC Sodium Sodium POC Potassium Potassium Chloride Carbon Dioxide Anion Gap BUN Creatinine Est Cr Clr Drug Dosing Est GFR ( Amer) Est GFR (Non-Af Amer) BUN/Creatinine Ratio Glucose POC Glucose (other) 268 H 256 H Calcium Phosphorus Magnesium Total Bilirubin AST ALT Alkaline Phosphatase Total Creatine Kinase Total Protein Albumin Globulin Albumin/Globulin Ratio Beta-Hydroxybutyric Acd Random Cortisol Ur Random Creatinine Ur Random Sodium Ur Random Urea Nitrogn Random Vancomycin Digoxin 04/27/19 04/27/19 04/27/19 17:42 17:42 18:45 WBC RBC Hgb POC Hgb Hct POC Hct MCV MCH MCHC RDW Std Deviation RDW Coeff of Baldo Plt Count MPV Immature Gran % (Auto) Neut % (Auto) Lymph % (Auto) Ponce % (Auto) Eos % (Auto) Baso % (Auto) Immature Gran # (Auto) Neut # (Auto) Lymph # (Auto) Ponce # (Auto) Eos # (Auto) Baso # (Auto) PT INR APTT PTT Ratio Sample Site POC pH POC pCO2 POC pO2 POC HCO3 POC Total CO2 POC Base Excess ABG pH (Temp Correct) ABG pCO2 (Temp Corrct POC ABG pO2 at Pt Temp Sam Test O2 Delivery Device POC O2 Rate Minute Ventilation POC FiO2 Tidal Volume PEEP POC Sodium Sodium 131 L POC Potassium Potassium 3.0 L Chloride 100 Carbon Dioxide 22 Anion Gap 9.0 BUN 47 H Creatinine 2.25 H D Est Cr Clr Drug Dosing 48.7 Est GFR ( Amer) 33.7 Est GFR (Non-Af Amer) 29.1 BUN/Creatinine Ratio 20.8 H Glucose 250 H POC Glucose (other) 234 H Calcium 8.2 L Phosphorus Magnesium 2.2 Total Bilirubin 1.7 H AST 267 H ALT 63 Alkaline Phosphatase 81 Total Creatine Kinase Total Protein 6.1 L Albumin 2.3 L Globulin 3.8 Albumin/Globulin Ratio 0.6 L Beta-Hydroxybutyric Acd Random Cortisol Ur Random Creatinine Ur Random Sodium Ur Random Urea Nitrogn Random Vancomycin Digoxin 04/27/19 04/27/19 04/27/19 19:45 21:14 23:00 WBC RBC Hgb POC Hgb Hct POC Hct MCV MCH MCHC RDW Std Deviation RDW Coeff of Baldo Plt Count MPV Immature Gran % (Auto) Neut % (Auto) Lymph % (Auto) Ponce % (Auto) Eos % (Auto) Baso % (Auto) Immature Gran # (Auto) Neut # (Auto) Lymph # (Auto) Ponce # (Auto) Eos # (Auto) Baso # (Auto) PT INR APTT PTT Ratio Sample Site POC pH POC pCO2 POC pO2 POC HCO3 POC Total CO2 POC Base Excess ABG pH (Temp Correct) ABG pCO2 (Temp Corrct POC ABG pO2 at Pt Temp Sam Test O2 Delivery Device POC O2 Rate Minute Ventilation POC FiO2 Tidal Volume PEEP POC Sodium Sodium POC Potassium Potassium Chloride Carbon Dioxide Anion Gap BUN Creatinine Est Cr Clr Drug Dosing Est GFR ( Amer) Est GFR (Non-Af Amer) BUN/Creatinine Ratio Glucose POC Glucose (other) 219 H 199 H 178 H Calcium Phosphorus Magnesium Total Bilirubin AST ALT Alkaline Phosphatase Total Creatine Kinase Total Protein Albumin Globulin Albumin/Globulin Ratio Beta-Hydroxybutyric Acd Random Cortisol Ur Random Creatinine Ur Random Sodium Ur Random Urea Nitrogn Random Vancomycin Digoxin 04/28/19 04/28/19 04/28/19 01:01 01:05 03:42 WBC RBC Hgb POC Hgb Hct POC Hct MCV MCH MCHC RDW Std Deviation RDW Coeff of Baldo Plt Count MPV Immature Gran % (Auto) Neut % (Auto) Lymph % (Auto) Ponce % (Auto) Eos % (Auto) Baso % (Auto) Immature Gran # (Auto) Neut # (Auto) Lymph # (Auto) Ponce # (Auto) Eos # (Auto) Baso # (Auto) PT INR APTT 78.1 H* PTT Ratio 2.9 Sample Site POC pH POC pCO2 POC pO2 POC HCO3 POC Total CO2 POC Base Excess ABG pH (Temp Correct) ABG pCO2 (Temp Corrct POC ABG pO2 at Pt Temp Sam Test O2 Delivery Device POC O2 Rate Minute Ventilation POC FiO2 Tidal Volume PEEP POC Sodium Sodium POC Potassium Potassium Chloride Carbon Dioxide Anion Gap BUN Creatinine Est Cr Clr Drug Dosing Est GFR ( Amer) Est GFR (Non-Af Amer) BUN/Creatinine Ratio Glucose POC Glucose (other) 161 H 145 H Calcium Phosphorus Magnesium Total Bilirubin AST ALT Alkaline Phosphatase Total Creatine Kinase Total Protein Albumin Globulin Albumin/Globulin Ratio Beta-Hydroxybutyric Acd Random Cortisol Ur Random Creatinine Ur Random Sodium Ur Random Urea Nitrogn Random Vancomycin Digoxin 04/28/19 04/28/19 04/28/19 04:10 04:10 04:10 WBC 6.67 RBC 4.40 L Hgb 13.1 L POC Hgb Hct 40.2 L POC Hct MCV 91.4 MCH 29.8 MCHC 32.6 RDW Std Deviation 52.5 H RDW Coeff of Baldo 15.6 H Plt Count 108 L MPV 11.3 H Immature Gran % (Auto) 0.4 Neut % (Auto) 69.0 Lymph % (Auto) 15.1 Ponce % (Auto) 14.8 Eos % (Auto) 0.6 Baso % (Auto) 0.1 Immature Gran # (Auto) 0.03 H Neut # (Auto) 4.59 Lymph # (Auto) 1.01 L Ponce # (Auto) 0.99 H Eos # (Auto) 0.04 Baso # (Auto) 0.01 PT INR APTT PTT Ratio Sample Site POC pH POC pCO2 POC pO2 POC HCO3 POC Total CO2 POC Base Excess ABG pH (Temp Correct) ABG pCO2 (Temp Corrct POC ABG pO2 at Pt Temp Sam Test O2 Delivery Device POC O2 Rate Minute Ventilation POC FiO2 Tidal Volume PEEP POC Sodium Sodium 133 L POC Potassium Potassium 3.3 L Chloride 103 Carbon Dioxide 22 Anion Gap 8.0 BUN 36 H Creatinine 1.76 H D Est Cr Clr Drug Dosing 62.3 Est GFR ( Amer) 45.4 Est GFR (Non-Af Amer) 39.1 BUN/Creatinine Ratio 20.3 H Glucose 135 H POC Glucose (other) Calcium 8.0 L Phosphorus Magnesium 2.2 Total Bilirubin 1.1 H AST 275 H ALT 69 Alkaline Phosphatase 76 Total Creatine Kinase Total Protein 6.0 L Albumin 2.2 L Globulin 3.8 Albumin/Globulin Ratio 0.6 L Beta-Hydroxybutyric Acd 1.49 Random Cortisol Ur Random Creatinine Ur Random Sodium Ur Random Urea Nitrogn Random Vancomycin Digoxin 0.5 L 04/28/19 04/28/19 04/28/19 04:10 04:10 05:19 WBC RBC Hgb POC Hgb Hct POC Hct MCV MCH MCHC RDW Std Deviation RDW Coeff of Baldo Plt Count MPV Immature Gran % (Auto) Neut % (Auto) Lymph % (Auto) Ponce % (Auto) Eos % (Auto) Baso % (Auto) Immature Gran # (Auto) Neut # (Auto) Lymph # (Auto) Ponce # (Auto) Eos # (Auto) Baso # (Auto) PT INR APTT PTT Ratio Sample Site POC pH POC pCO2 POC pO2 POC HCO3 POC Total CO2 POC Base Excess ABG pH (Temp Correct) ABG pCO2 (Temp Corrct POC ABG pO2 at Pt Temp Sam Test O2 Delivery Device POC O2 Rate Minute Ventilation POC FiO2 Tidal Volume PEEP POC Sodium Sodium POC Potassium Potassium Chloride Carbon Dioxide Anion Gap BUN Creatinine Est Cr Clr Drug Dosing Est GFR ( Amer) Est GFR (Non-Af Amer) BUN/Creatinine Ratio Glucose POC Glucose (other) 135 H Calcium Phosphorus 3.0 Magnesium Total Bilirubin AST ALT Alkaline Phosphatase Total Creatine Kinase Total Protein Albumin Globulin Albumin/Globulin Ratio Beta-Hydroxybutyric Acd Random Cortisol Ur Random Creatinine Ur Random Sodium Ur Random Urea Nitrogn Random Vancomycin 18.6 Digoxin 04/28/19 04/28/19 04/28/19 05:23 08:07 08:07 WBC RBC Hgb POC Hgb 13.3 L Hct POC Hct 39 L MCV MCH MCHC RDW Std Deviation RDW Coeff of Baldo Plt Count MPV Immature Gran % (Auto) Neut % (Auto) Lymph % (Auto) Ponce % (Auto) Eos % (Auto) Baso % (Auto) Immature Gran # (Auto) Neut # (Auto) Lymph # (Auto) Ponce # (Auto) Eos # (Auto) Baso # (Auto) PT Pending INR Pending APTT Pending PTT Ratio Pending Sample Site Art Line POC pH 7.36 POC pCO2 40 POC pO2 80 POC HCO3 23 POC Total CO2 24 POC Base Excess -3.0 ABG pH (Temp Correct) 7.348 L ABG pCO2 (Temp Corrct 41 POC ABG pO2 at Pt Temp 83 Sam Test NA O2 Delivery Device Ventilator POC O2 Rate 25 Minute Ventilation 12.5 POC FiO2 40 Tidal Volume 500 PEEP 8 POC Sodium 134 L Sodium POC Potassium 3.2 L Potassium Chloride Carbon Dioxide Anion Gap BUN Creatinine Est Cr Clr Drug Dosing Est GFR ( Amer) Est GFR (Non-Af Amer) BUN/Creatinine Ratio Glucose POC Glucose (other) Calcium Phosphorus Magnesium Total Bilirubin AST ALT Alkaline Phosphatase Total Creatine Kinase Pending Total Protein Albumin Globulin Albumin/Globulin Ratio Beta-Hydroxybutyric Acd Random Cortisol Ur Random Creatinine Ur Random Sodium Ur Random Urea Nitrogn Random Vancomycin Digoxin Medications Administered Current Inpatient Medications Allopurinol (Zyloprim) 300 mg PO QPM [facility] Stop: 05/26/19 20:59 Last Admin: 04/26/19 21:28 Dose: 300 mg Documented by: Aspirin (A[facility]in Chew) [facility] Stop: 05/27/19 08:59 Last Admin: 04/27/19 09:32 Dose: 81 mg Documented by: Atorvastatin Calcium (Lipitor) 10 mg PO [facility] Stop: 05/27/19 08:59 Bupropion HCl (Wellbutrin-Xl) 150 mg PO [facility] Stop: 05/27/19 08:59 Last Admin: 04/27/19 09:56 Dose: Not Given Documented by: Dextrose (Dextrose 50%) 25 - 50 ml IV UD PRN; Protocol PRN Reason: Hypoglycemia Protocol Stop: 05/26/19 13:14 Digoxin (Lanoxin) 0.125 mg PO DAILY@1600 [facility] Stop: 05/27/19 15:59 Last Admin: 04/27/19 16:04 Dose: 0.125 mg Documented by: Duloxetine HCl (Cymbalta) 60 mg PO [facility] Stop: 05/27/19 08:59 Last Admin: 04/27/19 09:56 Dose: Not Given Documented by: Fentanyl Citrate (Fentanyl Citrate) 50 mcg IV Q2H PRN PRN Reason: Pain Stop: 05/11/19 14:22 Gabapentin (Neurontin) 100 mg PO TID [facility] Stop: 05/26/19 14:59 Last Admin: 04/27/19 13:26 Dose: 100 mg Documented by: Glucagon (Glucagen) 1 mg IM UD PRN; Protocol PRN Reason: Hypoglycemia Protocol Stop: 05/26/19 13:14 Glucose (Glucose 40%) 15 - 30 gm PO UD PRN; Protocol PRN Reason: Hypoglycemia Protocol Stop: 05/26/19 13:14 Glucose (Dex4 Glucose) 4 - 8 tabs PO UD PRN; Protocol PRN Reason: Hypoglycemia Protocol Stop: 05/26/19 13:14 Insulin Human Regular 250 (units/ Sodium Chloride) 250 mls @ 15.1 mls/hr IV .[id number] [facility]; Protocol Stop: 05/26/19 12:59 Last Titration: 04/28/19 07:25 Dose: 15.1 units/hr, 15.1 mls/hr Documented by: Heparin Sodium/Dextrose (Heparin Sodium/Dextrose) 25,000 units in 500 mls @ 27 mls/hr IV .[id number]; Protocol Stop: 05/26/19 14:09 Last Titration: 04/28/19 07:25 Dose: 1,350 units/hr, 27 mls/hr Documented by: Piperacillin Sod/Tazobactam (Sod 4.5 gm/ Dextrose) 120 mls @ 30 mls/hr IV Q8H [facility]; Protocol Stop: 05/03/19 17:59 Last Infusion: 04/28/19 06:10 Dose: Infused Documented by: Esmolol HCl (Brevibloc) 2,500 mg in 250 mls @ 0 mls/hr IV .Q0M PRN; Protocol PRN Reason: Hypertension Stop: 05/26/19 19:35 Last Titration: 04/28/19 04:00 Dose: 0 mcg/kg/min, 0 mls/hr Documented by: Propofol (Diprivan) 1,000 mg in 100 mls @ 19.728 mls/hr IV .[id number] [facility]; Protocol Stop: 04/29/19 21:24 Last Titration: 04/28/19 07:25 Dose: 20 mcg/kg/min, 19.7 mls/hr Documented by: Famotidine 20 mg/ Syringe 5 mls @ 2.5 mls/min IV BID [facility] Stop: 05/27/19 08:59 Last Admin: 04/27/19 21:44 Dose: 2.5 mls/min Documented by: Phenylephrine HCl 80 mg/ (Dextrose) 258 mls @ 15.91 mls/hr IV .[id number] [facility]; Protocol Stop: 05/27/19 14:44 Last Titration: 04/28/19 07:25 Dose: 0.5 mcg/kg/min, 15.9 mls/hr Documented by: Potassium Chloride (K Frank / Wtr) 20 meq in 100 mls @ 50 mls/hr IV Q2H [facility] Stop: 04/28/19 09:08 Last Admin: 04/28/19 07:38 Dose: 50 mls/hr Documented by: Vancomycin HCl 2,250 mg/ (Sodium Chloride) 545 mls @ 200 mls/hr IV TODAY@0730 [facility] Stop: 04/28/19 10:13 Last Admin: 04/28/19 07:54 Dose: 200 mls/hr Documented by: Insulin Aspart (Novolog Flexpen) 0 units [facility] Stop: 05/26/19 16:29 Last Admin: 04/27/19 21:29 Dose: 1 units Documented by: [facility]othy[facility]ine [facility] ([facility]) [facility]: 05/27/19 06:29 Last Admin: 04/27/19 06:23 Dose: 50 mcg Documented by: Levothyroxine Sodium (Synthroid) [facility] Stop: 05/27/19 06:29 Last Admin: 04/27/19 06:23 Dose: 200 mcg Documented by: Magnesium Oxide (Mag-Ox) 400 mg PO DAILY [facility] Stop: 05/27/19 08:59 Last Admin: 04/27/19 09:32 Dose: 400 mg Documented by: Metoprolol Tartrate (Lopressor) 100 mg PO HS [facility] Stop: 05/26/19 20:59 Last Admin: 04/26/19 21:25 Dose: Not Given Documented by: Metoprolol Tartrate (Lopressor) 150 mg PO QAM [facility] Stop: 05/26/19 14:59 Last Admin: 04/26/19 15:39 Dose: 150 mg Documented by: Metoprolol Tartrate (Lopressor) 5 mg IV Q5M PRN PRN Reason: HR>130 Last Admin: 04/26/19 22:12 Dose: 5 mg Documented by: Midazolam HCl (Versed) 2 - 4 mg IV Q2HWA PRN PRN Reason: Agitation Stop: 05/27/19 17:49 Last Admin: 04/28/19 06:30 Dose: 2 mg Documented by: Miscellaneous (Carbohydrates For Hypoglycemia) 15 - 30 gm PO PRN PRN PRN Reason: Hypoglycemia Treatment Stop: 05/26/19 13:14 Miscellaneous Information (Consult) 1 ea N/A UD PRN PRN Reason: Consult Stop: 05/26/19 11:34 Miscellaneous Information (Consult) 1 ea N/A UD PRN PRN Reason: Consult Stop: 05/26/19 17:01 Nutritional Formula (Peptamen Intense Vhp 1.0 Sreedhar) 1,000 ml [facility]G [facility]; Protocol Stop: 11/15/19 10:44 Nystatin (Mycostatin) 1 appln EXT BID PRN PRN Reason: Rash Stop: 05/26/19 14:09 Vitamin D (Vitamin D3) 2,000 units PO DAILY [facility] Stop: 05/27/19 08:59 Last Admin: 04/27/19 09:33 Dose: 2,000 units Documented by: Warfarin Sodium (Coumadin) 8 mg PO DAILY@1600 [facility] Stop: 05/26/19 15:59 Last Admin: 04/26/19 15:39 Dose: 8 mg Documented by:
[2019-04-28] MEDS: INSULIN ASPART 100 UNITS/ML 3 ML PEN SC SCH (08:36)
[2019-04-28] MEDS: FAMOTIDINE 20 MG in SYRINGE 3 ML IV SCH ×2 (08:39→20:06)
--- NOTE | 2019-04-28 08:47 | Hospitalist Progress Note ---
Date of Service April 28, 2019 Assessment & Plan (1) Sepsis: sepsis secondary to bacteremia from Staphylococcus aureus likely from necrosis of right buttock ulceration -69-year-old male with diabetes admitted with mild DKA, acute kidney injury, and severe sepsis likely secondary to deep soft tissue infection. Status post urgent debridement on 04/27/19 He is currently ventilated and on pressors but appears to be improving. -continue empiric Zosyn -patient was initially on Vancomycin but cultures returning as MSSA so no need for MRSA coverage and vanomycin can be stopped on 04/28/19 -appreciate ICU management of mechanical ventilator and vasopressors and sedation while intubated (2) Lactic acidosis: -admission lactic acid 6.6 -lactic acidosis has resolved (3) Decubitus ulcer: -Present on admission of necrosis of right buttock ulceration -Operation Date: 04/26/19: s/p Debridement necrotic right buttock ulceration; drainage of perirectal abscess; incision of thrombosed hemorrhoid -since debridement patient remains intubated while in the ICU to await the further improvements of patient's metabolic processes before extubation (4) Atrial fibrillation with RVR: -secondary to sepsis and metabolic derangements -on IV esmolol -oral elixir digoxin 0.125 mg daily (5) Elevated troponin: -elevated troponins from demand ischemia due to to sepsis and atrial fibrillation with rapid ventricular response -on IV heparin (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 (7) Pacemaker: -Pacemaker in place and functioning appropriately as per cardiology evaluation (8) Chronic diastolic CHF (congestive heart failure): History of Non ischemic Cardiomyopathy in the past -Echo 11/2018: Mildly reduced EF, grade 1 diastolic dysfunction -diuretics have been held due to acute kidney injury (9) Acute kidney injury superimposed on CKD: -diuretics and losartan have been held -has kevyn to monitor urine output (10) CKD (chronic kidney disease) stage 3, GFR 30-59 ml/min: -Baseline creatinine should be around 1.3 (11) Diabetes mellitus, type 2: Type 2 diabetes mellitus with middle or intermediate school principal current use of insulin and with hyperglycemia Mild Diabetic Ketoacidosis -Patient presenting from home with generalized weakness and frequent falls for the past 3 days prior to admission with insulin pump became disconnected at some point in time throughout the night and patient was unable to reconnect -currently on insulin drip -on tube feeds for now (12) Hypothyroidism: -hold levothyroxine for now given recent tachycardia (13) COPD, moderate: -is intubated (14) SALAS (obstructive sleep apnea): -is intubated (15) History of pulmonary embolism: -History of pulmonary embolism in the past (16) DVT prophylaxis: -On IV heparin daughter Bing [phone] daughter Tatyana sister Enrike [phone] Subjective Patient seen and examined at bedside. in the ICU. Continues to be on multiple IV drips of vasopressor, esmolol, propofol, IV heparin, IV insulin. currently the propofol IV medication is reduced to see if patient can be weaned off of the mechanical ventilator. Patient is awake. Patient periodically tries to pull up the arms against the restraints. He appears to be more calm when hospitalist explained to him the reasons why he was hospitalized and what is going on Patient has bagley. Patient has large body habitus. Given agitation and weaning trial, unable to have patient turn over for skin exam Physical Exam Constitutional: + obese Eyes: PERRL, conjunctivae normal, anicteric sclerae ENMT: external ear and nose normal, oropharynx normal Neck: normal visual inspection Respiratory: on mechanical ventilation Cardiovascular: Rate/Rhythm: + tachycardic Gastrointestinal (Abdomen): normal bowel sounds, soft, nontender, no hepatosplenomegaly Skin: given agitation and weaning trial, unable to have patient turn over for skin exam Psychiatric: Patient is awake. Patient periodically tries to pull up the arms against the restraints. He appears to be more calm when hospitalist explained to him the reasons why he was hospitalized and what is going on Results & Data Vital Signs (Past 12 Hours) Vital Signs Temp Pulse Pulse Resp BP Pulse Ox 04/28/19 07:20 36 H 04/28/19 06:00 37.3 C 98 H 30 H 105/58 L 96 04/28/19 05:37 96 H 25 H 95 04/28/19 05:00 37.6 C H 81 25 H 104/51 L 95 04/28/19 04:00 37.8 C H 85 25 H 114/55 L 96 04/28/19 03:00 38.2 C H 103 H 25 H 107/55 L 95 04/28/19 02:15 102 H 27 H 97 04/28/19 02:00 38.2 C H 100 H 27 H 111/51 L 97 04/28/19 01:00 38.3 C H 111 H 25 H 108/50 L 97 04/28/19 00:00 38.5 C H 100 H 25 H 136/57 L 97 04/27/19 23:24 112 H 25 H 95 04/27/19 23:00 38.5 C H 109 H 24 115/44 L 97 04/27/19 22:00 38.4 C H 111 H 25 H 118/45 L 97 04/27/19 21:00 38.3 C H 101 H 25 H 106/47 L 95 (1) Diabetes mellitus, type 2 Diabetes mellitus alf insulin use: with middle or intermediate school principal use Diabetes mellitus complication status: with kidney complications Diabetes mellitus complication detail: with chronic kidney disease Chronic kidney disease stage: stage 3 (moderate) Qualified Code(s): E11.22 - Type 2 diabetes mellitus with diabetic chronic kidney disease; N18.3 - Chronic kidney disease, stage 3 (moderate); Z79.4 - jail (current) use of insulin (2) Hypothyroidism Hypothyroidism type: unspecified Qualified Code(s): E03.9 - Hypothyroidism, unspecified
[2019-04-28 08:49] LABS: INR 1.8 (0.9-1.1); Partial Thromboplastin Ratio 2.4; Prothrombin Time 17.9 Seconds (9.0-12.0)
[2019-04-28 08:56] LABS: Partial Thromboplastin Time 65.1 Seconds (21.0-31.0)
[2019-04-28] MEDS: HEPARIN SODIUM/DEXTROSE 25,000 UNITS/500 ML BAG IV SCH (09:08)
[2019-04-28] MEDS: fentaNYL citrate 100 MCG/2 ML VIAL IV PRN ×4 (10:11→21:09)
[2019-04-28] MEDS: METOPROLOL TARTRATE 50 MG TAB NG SCH ×3 (11:24→23:33)
[2019-04-28] MEDS: POTASSIUM CHLORIDE 20 MEQ/15 ML UDC NG SCH ×3 (11:26→23:33)
[2019-04-28] MEDS: LACTATED RINGER'S 1,000 ML IV SCH (12:55)
--- NOTE | 2019-04-28 13:19 | Surgery Progress Note ---
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 Ortiz assisted with dressing change Not able to apply wound vac due to proximity to anus continue daily packing changes Subjective remains intubated, on tube feeds Physical Exam Skin: wound clean, no additional induration or erythema Results & Data Vital Signs (Past 12 Hours) Vital Signs Temp Pulse Pulse Resp BP Pulse Ox 04/28/19 13:00 108 H 97 04/28/19 12:00 114 H 96 04/28/19 11:00 97 H 96 04/28/19 10: 89 25 H 99 04/28/19 10:00 101 H 96 04/28/19 09:00 103 H 93 04/28/19 08:00 37.2 C 112 H 97 04/28/19 07:20 36 H 04/28/19 07:00 114 H 97 04/28/19 06:42 108 H 04/28/19 06:00 37.3 C 98 H 30 H 105/58 L 96 04/28/19 05:37 96 H 25 H 95 04/28/19 05:00 37.6 C H 81 25 H 104/51 L 95 04/28/19 04:00 37.8 C H 85 25 H 114/55 L 96 04/28/19 03:00 38.2 C H 103 H 25 H 107/55 L 95 04/28/19 02:15 102 H 27 H 97 04/28/19 02:00 38.2 C H 100 H 27 H 111/51 L 97 PG Care Time/CCT Total # of Minutes Spent Total Time Spent with Patient: Total time spent is greater than 50% in coordination of care (as documented) at patient's floor/unit and/or counseling patient:
[2019-04-28] MEDS: PHENYLEPHRINE HCL IV SCH ×2 (14:23→18:08)
[2019-04-28] MEDS: DEXTROSE 5% IV SCH ×2 (14:23→18:08)
[2019-04-28] MEDS: DIGOXIN 0.125 MG/2.5 ML UDP PO SCH (15:16)
[2019-04-29] MEDS: LACTATED RINGER'S 1,000 ML IV SCH (00:34)
[2019-04-29] MEDS: PROPOFOL 1,000 MG/100 ML VIAL IV SCH ×6 (01:30→20:37)
[2019-04-29] MEDS: PIPERACILLIN/TAZOBACTAM 4.5 GM in DEXTROSE 5% 100 ML IV SCH ×3 (01:33→17:43)
[2019-04-29] MEDS: fentaNYL citrate 100 MCG/2 ML VIAL IV PRN ×2 (03:55→09:05)
[2019-04-29 04:32] LABS: Hematocrit (blood only) 36.8 % (42-52); Mean Corpuscular Hemoglobin 29.9 pg (25-34); Mean Corpuscular Hgb Conc 32.6 g/dL (32-36); Mean Corpuscular Volume 91.8 fL (80-100); RDW Coefficient of Variation 15.7 % (11.5-14.5); RDW Standard Deviation 52.7 fL (36.4-46.3); Red Blood Count 4.01 M/uL (4.7-6.1); White Blood Count 5.69 K/uL (4.8-10.8)
[2019-04-29 04:51] LABS: Partial Thromboplastin Ratio 1.9
[2019-04-29 04:53] LABS: Albumin Globulin Ratio 0.5 (0.9-2); BUN Creatinine Ratio 18.1 (10-20); Bilirubin,Total 0.9 mg/dl (0.2-1); Calcium 8.1 mg/dl (8.5-10.1); Creatinine Clr Calc Pharmacy 81.9 ml/min; Est GFR (African American) 63.1; Est GFR (Non-African American) 54.4; Globulin 3.7 gm/dl (2.5-4.0); Magnesium 1.9 mg/dl (1.8-2.4); Potassium 4.4 mmol/L (3.5-5.1); Total Protein 5.7 gm/dl (6.4-8.2)
[2019-04-29 04:54] LABS: Partial Thromboplastin Time 51.3 Seconds (21.0-31.0)
[2019-04-29 05:05] LABS: Basophils # (auto) 0.01 K/uL (0-0.2); Basophils % (auto) 0.2 %; Echinocytes 1+; Eosinophils # (auto) 0.11 K/uL (0-0.5); Eosinophils % (auto) 1.9 %; Immature Granulocytes # (auto) 0.06 K/uL (0.00-0.02); Immature Granulocytes % (auto) 1.1 %; Lymphocytes # (auto) 0.95 K/uL (1.2-3.4); Lymphocytes % (auto) 16.7 %; Mean Platelet Volume 11.4 fL (7.4-10.4); Monocytes # (auto) 0.66 K/uL (0.11-0.59); Monocytes % (auto) 11.6 %; Neutrophils % (auto) 68.5 %; Platelet Count 89 K/uL (130-400); Platelet Estimate Decreased (Normal)
[2019-04-29] MEDS: HEPARIN SODIUM/DEXTROSE 25,000 UNITS/500 ML BAG IV SCH ×2 (05:09→21:13)
[2019-04-29] MEDS: METOPROLOL TARTRATE 50 MG TAB NG SCH ×3 (05:38→18:36)
[2019-04-29] MEDS: MIDAZOLAM HCL 5 MG/ML 1 ML VIAL IV PRN ×2 (05:56→09:04)
[2019-04-29 06:02] LABS: iSTAT Allen Test Pass; iSTAT Art Bld Gas pCO2 Correct 37 mmHg (35-46); iSTAT Arterial Blood Gas HCO3 21 meg/L (19-24); iSTAT Arterial Blood Gas pCO2 33 mmHg (35-46); iSTAT Arterial Blood Gas pH 7.41 (7.35-7.45); iSTAT Arterial Blood Gas pO2 80 mmHg (80-95); iSTAT Arterial Blood Gas pO2 C 94; iSTAT Carbon Dioxide 22 mEq/l (24-31); iSTAT FiO2 40 %; iSTAT Site L Radial
--- NOTE | 2019-04-29 06:58 | XRay Report ---
XR chest 1V portable HISTORY: 69 years-old Male f/u follow-up study in a patient with acute respiratory failure COMPARISON: Chest radiograph 04/28/2019 TECHNIQUE: Portable AP view of the chest FINDINGS: Endotracheal tube terminates 3.3 cm superior to the alexandra. Left subclavian pacer appears unchanged. Enteric tube courses into the gastric lumen, distal tip outside the [id number]. Left IJ central ve nous catheter is unchanged. Cardiac silhouette is enlarged. Persistent pulmonary edema without pneumo thorax. Small bilateral pleural effusions with persistent bibasilar opacities, slightly progressed. D egenerative changes of the shoulders and spine. IMPRESSION: 1. Endotracheal tube terminates 3.3 cm superior to the alexandra. 2. Cardiomegaly with persistent pulmonary edema. 3. Small pleural effusions with slightly progressed bibasilar opacities. The above report was generated using voice recognition software. It may contain grammatical, syntax o r spelling errors. Electronically signed by: Pk Menchaca M.D. 04/29/2019 6:57 AM
--- NOTE | 2019-04-29 08:18 | Critical Care Progress Note ---
Date of Service April 29, 2019 Assessment & Plan (1) Admitted to intensive care unit: Reason Critically Ill: 69-year-old male with diabetes and morbid obesity admitted with mild DKA, acute kidney injury, and severe sepsis 2/2 deep soft tissue infection s/p debridement 04/26. He is currently ventilated and on pressors, weaning off NEURO Sedation with propofol Intermittent agitation: Restart the patient's Wellbutrin, Celexa, and Neurontin. Will consider Zyprexa if persists CV Afib w/ RVR- likely 2/2 DKA, dehydration, sepsis, significant acute renal failure, respiratory distress Continue Dig. Added PO Metoprolol 75 mg q6h Anticoagulated on Coumadin, INR 1.3; started on IV heparin bridge 2/2 high [id number] and history of PE. If deemed no further surgeries necessary, can restart warfarin and follow INR closely Reasonable to keep HR <120 Appreciate Cardiology recommendations Low plts- HIT testing pending. Cont trend Elevated Trop- likely 2/2 rhabdomyolysis and acute renal failure ECHO reviewed HLD, HTN, CAD- Cont home Aspirin, holding statin CHF- ECHO November 2018: Mildly reduced EF, grade 1 diastolic dysfunction. As below, holding home diuretics due to [place] ROSA PULM CXR- Mild pulmonary vascular congestion. Repeat showed interval development of pulmonary edema On Mech Vent currently. On home O2 at baseline Failed SBT today , tachypnea IV Lasix 40 mg today COPD- stable SALAS- CPAP HS when able ABD/GI Elevated LFT's, improving- likely 2/2 hypoperfusion, sepsis Liver U/S- Fatty infiltration of the liver and hepatomegaly Start tube feeds at trickle, going up today to goal /RENAL CKD III, GFR 30-59 ml/min AL[place] ROSA- Baseline creatinine ~1.3. At baseline now. ARF suspected hypoperfusion, ATN IV Lasix 40 mg today as above ENDO DM2- Elevated BSG 2/2 insulin pump being disconnected overnight. BSG 521 on admit Normal pH and bicarb, elevated AG 16 and b-hydroxybutyric acid 15 (normalized now) ICU Hyperglycemic protocol- insulin gtt right now Will watch volume status 2/2 pulmonary edema and h/o CHF A1C 9.5 Hypothyroidism- Cont levothyroxine ID Concern for Sepsis-Lactic acid 6.6, WBC 15 K, tachycardic; afebrile, BP low- normal on admit. Serum procalcitonin elevated. Etiology likely 2/2 perirectal abscess. Doubt aspiration PNA vs biliary (h/o cholecystectomy) 04/26 debridement necrotic R buttock ulceration; drainage of perirectal abscess; incision of thrombosed hemorrhoid. No wound vac 2/2 proximity to rectum CXR- No evidence of focal pulmonary consolidation Elevated LFT- Liver U/S- reviewed as above Cont IV Zosyn. DC'd Vanc Wound cx- Staph Aureus . Urine cultures- pending. Blood cx- Staph Aureus LA WNL now Repeat blood cx pending Appreciate ID consult- suggest change to Rocephin 2g IV Q24h 4-6 weeks when able to de-escalte HEME Stable H/H. No concern for acute bleeding Trend Daily CBC's LINES: PIVx3, L IJ CVC, A-line DVT Prophylaxis: Heparin FULL CODE DISPO: ICU Supervising Physician Co-Signing Physician Notes Patient seen and examined. EMR reviewed. Imaging studies independently reviewed. Discussed with cardiology and general surgery and with the [facility] resident on rounds and on multidisciplinary Impression: 69-year-old male with diabetes and morbid obesity admitted with mild DKA, acute kidney injury, and severe sepsis likely secondary to deep soft tissue infection. Status post urgent debridement 04/26. He is currently ventilated. Pressors have been able to be weaned off. Recommendations: 1. Respiratory failure: Continue mechanical ventilation for now. Blood gas is appropriate. Attempted SBT today but the patient failed due to tachypnea. Now that his hemodynamics have improved and he is off vasopressor agents, will initiate diuresis with 40 mg of IV Lasix and follow. Repeat SBT as tolerated 2. Severe sepsis: Suspect related to deep soft tissue infection. Wound was reexamined by general surgery today and they do not feel the need for additional debridement. OR cultures are growing methicillin sensitive staph as well. Assessed for wound VAC today but given the proximity of the wound to the rectum, it was not felt that a wound VAC could be applied. We broached the topic of diverting colostomy however the surgeons would like to see how he does with wet-to-dry dressings for now. Day # 4 Zosyn. Would favor keeping antibiotics with anaerobic coverage given potential contamination of the wound with stool. Methicillin sensitive staph identified. Now off vancomycin. Surveillance cultures negative to date. The hospitalist did enter an ID consult. Random cortisol was normal. Off pressors currently 3. Mild DKA: Continue insulin infusion. Increasing tube feeds to goal. Beta hydroxybutyrate has normalized 4. Atrial fibrillation with rapid ventricular response: The patient is in chronic intermittent A. fib in the outpatient setting. He does have a pacemaker in place. Better control today. Continue oral metoprolol and discontinued esmolol. We will continue digoxin after consultation with cardiology. Continue heparin drip for now. Although platelet counts were decreased. Check HIT screen 5. Acute kidney injury: Superimposed on chronic kidney disease. Creatinine down to normal. CPK trending down. Continue to follow 6. DVT and GI prophylaxis have been initiated and are appropriate. 7. Leukocytosis: Likely reactive secondary to infectious etiologies. Continue to trend over time. 8. Abnormal LFTs: AST remains mildly elevated. ALT and total bili decreasing. 9. Intermittent agitation: Restart the patient's Wellbutrin, Celexa, and Neurontin. If he continues to have issues with intermittent agitation we may need to try a low-dose of antipsychotic such as Zyprexa. Patient's daughter updated at bedside. He remains critically ill with significant possibility of clinical deterioration. Subjective 69 yo M found in bed this AM on mech vent. Pt failed SBT this AM. Off phenyl now. Propofol for sedation at 20. Insulin gtt running. No acute concerns or complaints. Review of Systems Review of Systems: Unobtainable due to endotracheal tube Physical Exam Constitutional: + ill appearing, + morbidly obese and + mechanically ventilated ENMT: external ear and nose normal, oropharynx normal Respiratory: + tachypneic Auscultation: + rales and + rhonchi Cardiovascular: Rate/Rhythm: + tachycardic and + irregularly irregular Gastrointestinal (Abdomen): normal bowel sounds, soft, nontender, no hepatosplenomegaly Skin: no rashes, warm and dry Genitourinary: dressing CDI Lymphatic: chronic venous stasis changes LE Results & Data Vital Signs (Past 12 Hours) Vital Signs Temp Pulse Pulse Resp BP Pulse Ox 04/29/19 07:38 115 H 39 H 97 04/29/19 06:00 103 H 27 H 151/71 H 97 04/29/19 05:31 110 H 31 H 96 04/29/19 05:00 110 H 30 H 106/62 96 04/29/19 04:00 38 C H 101 H 28 H 144/61 H 97 04/29/19 03:00 93 H 28 H 117/42 L 98 04/29/19 02:51 114 H 27 H 98 04/29/19 02:00 87 28 H 114/43 L 98 04/29/19 01:00 95 H 25 H 106/42 L 98 04/29/19 00:28 37.6 C H 90 25 H 114/44 L 97 04/28/19 23:47 104 H 26 H 97 04/28/19 23:00 95 H 25 H 114/44 L 97 04/28/19 22:00 37.7 C H 104 H 28 H 111/45 L 98 04/28/19 21:00 103 H 26 H 109/43 L 98 04/28/19 20:35 101 H 26 H 97 Laboratory Results Laboratory Results - last 24 hr 04/28/19 04/28/19 04/28/19 12:49 14:52 15:50 WBC RBC Hgb Hct MCV MCH MCHC RDW Std Deviation RDW Coeff of Baldo Plt Count MPV Immature Gran % (Auto) Neut % (Auto) Lymph % (Auto) Door % (Auto) Eos % (Auto) Baso % (Auto) Immature Gran # (Auto) Neut # (Auto) Lymph # (Auto) Door # (Auto) Eos # (Auto) Baso # (Auto) Platelet Estimate Echinocytes APTT PTT Ratio Sample Site POC pH POC pCO2 POC pO2 POC HCO3 POC Total CO2 POC Base Excess ABG pH (Temp Correct) ABG pCO2 (Temp Corrct POC ABG pO2 at Pt Temp POC ABG O2 Sat Sam Test O2 Delivery Device POC O2 Rate Minute Ventilation POC FiO2 Tidal Volume PEEP Sodium Potassium Chloride Carbon Dioxide Anion Gap BUN Creatinine Est Cr Clr Drug Dosing Est GFR ( Amer) Est GFR (Non-Af Amer) BUN/Creatinine Ratio Glucose POC Glucose POC Glucose (other) 113 H 103 H 107 H Calcium Phosphorus Magnesium Total Bilirubin AST ALT Alkaline Phosphatase Total Creatine Kinase Total Protein Albumin Globulin Albumin/Globulin Ratio Heparin Dep Plt Ab React Heparin Dep Plt Ab OD 04/28/19 04/28/19 04/28/19 16:49 17:51 18:30 WBC RBC Hgb Hct MCV MCH MCHC RDW Std Deviation RDW Coeff of Baldo Plt Count MPV Immature Gran % (Auto) Neut % (Auto) Lymph % (Auto) Door % (Auto) Eos % (Auto) Baso % (Auto) Immature Gran # (Auto) Neut # (Auto) Lymph # (Auto) Door # (Auto) Eos # (Auto) Baso # (Auto) Platelet Estimate Echinocytes APTT PTT Ratio Sample Site POC pH POC pCO2 POC pO2 POC HCO3 POC Total CO2 POC Base Excess ABG pH (Temp Correct) ABG pCO2 (Temp Corrct POC ABG pO2 at Pt Temp POC ABG O2 Sat Sam Test O2 Delivery Device POC O2 Rate Minute Ventilation POC FiO2 Tidal Volume PEEP Sodium Potassium Chloride Carbon Dioxide Anion Gap BUN Creatinine Est Cr Clr Drug Dosing Est GFR ( Amer) Est GFR (Non-Af Amer) BUN/Creatinine Ratio Glucose POC Glucose POC Glucose (other) 112 H 110 H 112 H Calcium Phosphorus Magnesium Total Bilirubin AST ALT Alkaline Phosphatase Total Creatine Kinase Total Protein Albumin Globulin Albumin/Globulin Ratio Heparin Dep Plt Ab React Heparin Dep Plt Ab OD 04/28/19 04/28/19 04/28/19 20:29 22:39 23:34 WBC RBC Hgb Hct MCV MCH MCHC RDW Std Deviation RDW Coeff of Baldo Plt Count MPV Immature Gran % (Auto) Neut % (Auto) Lymph % (Auto) Door % (Auto) Eos % (Auto) Baso % (Auto) Immature Gran # (Auto) Neut # (Auto) Lymph # (Auto) Door # (Auto) Eos # (Auto) Baso # (Auto) Platelet Estimate Echinocytes APTT PTT Ratio Sample Site POC pH POC pCO2 POC pO2 POC HCO3 POC Total CO2 POC Base Excess ABG pH (Temp Correct) ABG pCO2 (Temp Corrct POC ABG pO2 at Pt Temp POC ABG O2 Sat Sam Test O2 Delivery Device POC O2 Rate Minute Ventilation POC FiO2 Tidal Volume PEEP Sodium Potassium Chloride Carbon Dioxide Anion Gap BUN Creatinine Est Cr Clr Drug Dosing Est GFR ( Amer) Est GFR (Non-Af Amer) BUN/Creatinine Ratio Glucose POC Glucose POC Glucose (other) 112 H 109 H 109 H Calcium Phosphorus Magnesium Total Bilirubin AST ALT Alkaline Phosphatase Total Creatine Kinase Total Protein Albumin Globulin Albumin/Globulin Ratio Heparin Dep Plt Ab React Heparin Dep Plt Ab OD 04/29/19 04/29/19 04/29/19 00:35 01:41 02:36 WBC RBC Hgb Hct MCV MCH MCHC RDW Std Deviation RDW Coeff of Baldo Plt Count MPV Immature Gran % (Auto) Neut % (Auto) Lymph % (Auto) Door % (Auto) Eos % (Auto) Baso % (Auto) Immature Gran # (Auto) Neut # (Auto) Lymph # (Auto) Door # (Auto) Eos # (Auto) Baso # (Auto) Platelet Estimate Echinocytes APTT PTT Ratio Sample Site POC pH POC pCO2 POC pO2 POC HCO3 POC Total CO2 POC Base Excess ABG pH (Temp Correct) ABG pCO2 (Temp Corrct POC ABG pO2 at Pt Temp POC ABG O2 Sat Sam Test O2 Delivery Device POC O2 Rate Minute Ventilation POC FiO2 Tidal Volume PEEP Sodium Potassium Chloride Carbon Dioxide Anion Gap BUN Creatinine Est Cr Clr Drug Dosing Est GFR ( Amer) Est GFR (Non-Af Amer) BUN/Creatinine Ratio Glucose POC Glucose POC Glucose (other) 116 H 122 H 136 H Calcium Phosphorus Magnesium Total Bilirubin AST ALT Alkaline Phosphatase Total Creatine Kinase Total Protein Albumin Globulin Albumin/Globulin Ratio Heparin Dep Plt Ab React Heparin Dep Plt Ab OD 04/29/19 04/29/19 04/29/19 03:48 04:23 04:23 WBC 5.69 RBC 4.01 L Hgb 12.0 L Hct 36.8 L MCV 91.8 MCH 29.9 MCHC 32.6 RDW Std Deviation 52.7 H RDW Coeff of Baldo 15.7 H Plt Count 89 L MPV 11.4 H Immature Gran % (Auto) 1.1 Neut % (Auto) 68.5 Lymph % (Auto) 16.7 Door % (Auto) 11.6 Eos % (Auto) 1.9 Baso % (Auto) 0.2 Immature Gran # (Auto) 0.06 H Neut # (Auto) 3.90 Lymph # (Auto) 0.95 L Door # (Auto) 0.66 H Eos # (Auto) 0.11 Baso # (Auto) 0.01 Platelet Estimate Decreased L Echinocytes 1+ APTT PTT Ratio Sample Site POC pH POC pCO2 POC pO2 POC HCO3 POC Total CO2 POC Base Excess ABG pH (Temp Correct) ABG pCO2 (Temp Corrct POC ABG pO2 at Pt Temp POC ABG O2 Sat Sam Test O2 Delivery Device POC O2 Rate Minute Ventilation POC FiO2 Tidal Volume PEEP Sodium 135 L Potassium 4.4 D Chloride 104 Carbon Dioxide 28 Anion Gap 3.0 BUN 24 H Creatinine 1.34 D Est Cr Clr Drug Dosing 81.9 Est GFR ( Amer) 63.1 Est GFR (Non-Af Amer) 54.4 BUN/Creatinine Ratio 18.1 Glucose 140 H POC Glucose POC Glucose (other) 151 H Calcium 8.1 L Phosphorus 2.0 L D Magnesium 1.9 Total Bilirubin 0.9 AST 238 H ALT 68 Alkaline Phosphatase 95 Total Creatine Kinase Total Protein 5.7 L Albumin 2.0 L Globulin 3.7 Albumin/Globulin Ratio 0.5 L Heparin Dep Plt Ab React Heparin Dep Plt Ab OD 04/29/19 04/29/19 04/29/19 04:23 04:23 05:48 WBC RBC Hgb Hct MCV MCH MCHC RDW Std Deviation RDW Coeff of Baldo Plt Count MPV Immature Gran % (Auto) Neut % (Auto) Lymph % (Auto) Door % (Auto) Eos % (Auto) Baso % (Auto) Immature Gran # (Auto) Neut # (Auto) Lymph # (Auto) Door # (Auto) Eos # (Auto) Baso # (Auto) Platelet Estimate Echinocytes APTT 51.3 H* PTT Ratio 1.9 Sample Site L Radial POC pH 7.41 POC pCO2 33 L POC pO2 80 POC HCO3 21 POC Total CO2 22 L POC Base Excess -4.0 ABG pH (Temp Correct) 7.370 ABG pCO2 (Temp Corrct 37 POC ABG pO2 at Pt Temp 94 POC ABG O2 Sat 96.0 H Sam Test Pass O2 Delivery Device Ventilator POC O2 Rate 25 Minute Ventilation 12.5 POC FiO2 40 Tidal Volume 500 PEEP 6 Sodium Potassium Chloride Carbon Dioxide Anion Gap BUN Creatinine Est Cr Clr Drug Dosing Est GFR ( Amer) Est GFR (Non-Af Amer) BUN/Creatinine Ratio Glucose POC Glucose POC Glucose (other) Calcium Phosphorus Magnesium Total Bilirubin AST ALT Alkaline Phosphatase Total Creatine Kinase 2218 H Total Protein Albumin Globulin Albumin/Globulin Ratio Heparin Dep Plt Ab React Heparin Dep Plt Ab OD 04/29/19 04/29/19 04/29/19 05:53 07:41 09:37 WBC RBC Hgb Hct MCV MCH MCHC RDW Std Deviation RDW Coeff of Baldo Plt Count MPV Immature Gran % (Auto) Neut % (Auto) Lymph % (Auto) Door % (Auto) Eos % (Auto) Baso % (Auto) Immature Gran # (Auto) Neut # (Auto) Lymph # (Auto) Door # (Auto) Eos # (Auto) Baso # (Auto) Platelet Estimate Echinocytes APTT PTT Ratio Sample Site POC pH POC pCO2 POC pO2 POC HCO3 POC Total CO2 POC Base Excess ABG pH (Temp Correct) ABG pCO2 (Temp Corrct POC ABG pO2 at Pt Temp POC ABG O2 Sat Sam Test O2 Delivery Device POC O2 Rate Minute Ventilation POC FiO2 Tidal Volume PEEP Sodium Potassium Chloride Carbon Dioxide Anion Gap BUN Creatinine Est Cr Clr Drug Dosing Est GFR ( Amer) Est GFR (Non-Af Amer) BUN/Creatinine Ratio Glucose POC Glucose 140 H 167 H POC Glucose (other) 155 H Calcium Phosphorus Magnesium Total Bilirubin AST ALT Alkaline Phosphatase Total Creatine Kinase Total Protein Albumin Globulin Albumin/Globulin Ratio Heparin Dep Plt Ab React Heparin Dep Plt Ab OD 04/29/19 10:06 WBC RBC Hgb Hct MCV MCH MCHC RDW Std Deviation RDW Coeff of Baldo Plt Count MPV Immature Gran % (Auto) Neut % (Auto) Lymph % (Auto) Door % (Auto) Eos % (Auto) Baso % (Auto) Immature Gran # (Auto) Neut # (Auto) Lymph # (Auto) Door # (Auto) Eos # (Auto) Baso # (Auto) Platelet Estimate Echinocytes APTT PTT Ratio Sample Site POC pH POC pCO2 POC pO2 POC HCO3 POC Total CO2 POC Base Excess ABG pH (Temp Correct) ABG pCO2 (Temp Corrct POC ABG pO2 at Pt Temp POC ABG O2 Sat Sam Test O2 Delivery Device POC O2 Rate Minute Ventilation POC FiO2 Tidal Volume PEEP Sodium Potassium Chloride Carbon Dioxide Anion Gap BUN Creatinine Est Cr Clr Drug Dosing Est GFR ( Amer) Est GFR (Non-Af Amer) BUN/Creatinine Ratio Glucose POC Glucose POC Glucose (other) Calcium Phosphorus Magnesium Total Bilirubin AST ALT Alkaline Phosphatase Total Creatine Kinase Total Protein Albumin Globulin Albumin/Globulin Ratio Heparin Dep Plt Ab React Pending Heparin Dep Plt Ab OD Pending Medications Administered Current Inpatient Medications Allopurinol (Zyloprim) 300 mg PO QPM [facility] Stop: 05/26/19 20:59 Last Admin: 04/26/19 21:28 Dose: 300 mg Documented by: Aspirin (Aspirin Chew) 81 mg PO QAM [facility] Stop: 05/27/19 08:59 Last Admin: 04/27/19 09:32 Dose: 81 mg Documented by: Atorvastatin Calcium (Lipitor) 10 mg PO QAM [facility] Stop: 05/27/19 08:59 Bupropion HCl (Wellbutrin) 75 mg NG BID [facility] Stop: 05/29/19 10:59 Dextrose (Dextrose 50%) 25 - 50 ml IV UD PRN; Protocol PRN Reason: Hypoglycemia Protocol Stop: 05/26/19 13:14 Digoxin (Lanoxin) 0.125 mg PO DAILY@1600 [facility] Stop: 04/29/19 11:55 Last Admin: 04/28/19 15:16 Dose: 0.125 mg Documented by: Duloxetine HCl (Cymbalta) 60 mg PO QAM [facility] Stop: 05/27/19 08:59 Last Admin: 04/27/19 09:56 Dose: Not Given Documented by: Fentanyl Citrate (Fentanyl Citrate) 50 mcg IV Q2H PRN PRN Reason: Pain Stop: 05/11/19 14:22 Last Admin: 04/29/19 09:05 Dose: 50 mcg Documented by: Gabapentin (Neurontin) 100 mg NG TID [facility] Stop: 05/29/19 13:59 Glucagon (Glucagen) 1 mg IM UD PRN; Protocol PRN Reason: Hypoglycemia Protocol Stop: 05/26/19 13:14 Glucose (Glucose 40%) 15 - 30 gm PO UD PRN; Protocol PRN Reason: Hypoglycemia Protocol Stop: 05/26/19 13:14 Glucose (Dex4 Glucose) 4 - 8 tabs PO UD PRN; Protocol PRN Reason: Hypoglycemia Protocol Stop: 05/26/19 13:14 Insulin Human Regular 250 (units/ Sodium Chloride) 250 mls @ 7.8 mls/hr IV .Q24H [facility]; Protocol Stop: 05/26/19 12:59 Last Admin: 04/29/19 08:36 Dose: 7.8 units/hr, 7.8 mls/hr Documented by: Heparin Sodium/Dextrose (Heparin Sodium/Dextrose) 25,000 units in 500 mls @ 27 mls/hr IV .[id number] [facility]; Protocol Stop: 05/26/19 14:09 Last Titration: 04/29/19 07:10 Dose: 1,350 units/hr, 27 mls/hr Documented by: Piperacillin Sod/Tazobactam (Sod 4.5 gm/ Dextrose) 120 mls @ 30 mls/hr IV Q8H [facility]; Protocol Stop: 05/03/19 17:59 Last Admin: 04/29/19 09:33 Dose: 30 mls/hr Documented by: Propofol (Diprivan) 1,000 mg in 100 mls @ 19.728 mls/hr IV .Q5H5M [facility]; Protocol Stop: 04/29/19 21:24 Last Admin: 04/29/19 08:04 Dose: 20 mcg/kg/min, 19.7 mls/hr Documented by: Famotidine 20 mg/ Syringe 5 mls @ 2.5 mls/min IV BID [facility] Stop: 05/27/19 08:59 Last Admin: 04/29/19 09:05 Dose: 2.5 mls/min Documented by: Phenylephrine HCl 40 mg/ (Dextrose) 254 mls @ 6.26 mls/hr IV .Q24H [facility]; Protocol Stop: 05/28/19 12:44 Last Admin: 04/29/19 09:34 Dose: Not Given Documented by: Insulin Aspart (Novolog Flexpen) 0 units SC ACHS [facility] Stop: 05/26/19 16:29 Last Admin: 04/28/19 08:36 Dose: Not Given Documented by: Levothyroxine Sodium (Synthroid) 200 mcg NG DAILY@0500 [facility] Stop: 05/30/19 04:59 Levothyroxine Sodium (Synthroid) 50 mcg NG DAILY@0500 [facility] Stop: 05/30/19 04:59 Magnesium Oxide (Mag-Ox) 400 mg NG Q4H [facility] Stop: 04/29/19 16:01 Metoprolol Tartrate (Lopressor) 5 mg IV Q5M PRN PRN Reason: HR>130 Last Admin: 04/26/19 22:12 Dose: 5 mg Documented by: Metoprolol Tartrate (Lopressor) 50 mg NG Q6H [facility] Stop: 05/28/19 11:59 Last Admin: 04/29/19 05:38 Dose: 50 mg Documented by: Midazolam HCl (Versed) 2 mg IV Q2H PRN PRN Reason: RASS > 2 Stop: 05/29/19 10:05 Miscellaneous (Carbohydrates For Hypoglycemia) 15 - 30 gm PO PRN PRN PRN Reason: Hypoglycemia Treatment Stop: 05/26/19 13:14 Miscellaneous (Icu Electrolyte Replacement Protocol) 1 ea N/A QAM [facility] Stop: 05/06/19 09:54 Last Admin: 04/29/19 09:55 Dose: 1 ea Documented by: Miscellaneous (Pending Order) 1 ea N/A DAILY@0400,0600 [facility] Stop: 05/30/19 03:59 Miscellaneous Information (Consult) 1 ea N/A UD PRN PRN Reason: Consult Stop: 05/26/19 11:34 Nutritional Formula (Peptamen Intense Vhp 1.0 Sreedhar) 1,000 ml OG UD [facility]; Protocol Stop: 05/27/19 10:44 Nystatin (Mycostatin) 1 appln EXT BID PRN PRN Reason: Rash Stop: 05/26/19 14:09 Potassium Phosphate (Phospha 250 Neutral [id number] Mg) 1 tab NG Q4H [facility] Stop: 04/29/19 19:01 Sterile Water (Tube Feeding Water Flush) 1 ea NG Q4 [facility] Stop: 05/29/19 11:59 Vitamin D (Vitamin D3) 2,000 units PO DAILY [facility] Stop: 05/27/19 08:59 Last Admin: 04/27/19 09:33 Dose: 2,000 units Documented by: Warfarin Sodium (Coumadin) 8 mg PO DAILY@1600 [facility] Stop: 05/26/19 15:59 Last Admin: 04/26/19 15:39 Dose: 8 mg Documented by: PG Care Time/CCT Total # of Minutes Spent Total Time Spent with Patient: Total time spent is greater than 50% in coordination of care (as documented) at patient's floor/unit and/or counseling patient: 45 minutes critical care time Critical Care Time: Yes Total Critical Care Time: 45 Resident Activity Tracking Resident Involvement: Resident Care Provided Care Provided: Adult Hospital Medicine
[2019-04-29] MEDS: INSULIN REGULAR 250 UNITS in SODIUM CHLORIDE 0.9% 247.5 ML IV SCH ×2 (08:36→21:11)
[2019-04-29] MEDS ORDERED: FUROSEMIDE 40 MG/4 ML VIAL IV STA ×2 (08:45→09:29)
[2019-04-29] MEDS ORDERED: CALCIUM CHLORIDE 10% 1,000 MG in SODIUM CHLORIDE 0.9% 50 ML IV STA (08:47)
[2019-04-29] MEDS: FAMOTIDINE 20 MG in SYRINGE 3 ML IV SCH (09:05)
[2019-04-29] MEDS: PHENYLEPHRINE HCL IV SCH ×2 (09:33→09:34)
[2019-04-29] MEDS: DEXTROSE 5% IV SCH ×2 (09:33→09:34)
[2019-04-29] MEDS: ICU ELECTROLYTE REPLACEMENT PROTOCOL SCH (09:55)
[2019-04-29] MEDS ORDERED: MIDAZOLAM HCL 1 MG/ML 2ML VIAL IV PRN (10:06)
--- NOTE | 2019-04-29 10:36 | Cardiology Progress Note ---
Date of Service April 29, 2019 Assessment & Plan (1) Atrial fibrillation with RVR: rates relatively well controlled receiving metoprolol and dig via NGT concern with dig given renal impairment, will give 3 days then hold and follow check dig level with tomorrow's labs, more for academic exercise no signs of dig toxicity at this time: potassium level remains low, QTc stable, no ventricular arrhythmias cont heparin for now, unclear if further surgical intervention may be necessary if deemed no further surgeries necessary, can restart warfarin and follow INR closely platelets decreased today, will follow closely His QRS morphology is wide however 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 fib burden. (2) Decubitus ulcer: s/p resection likely nidus of events (3) Acute kidney injury superimposed on CKD: resolved (4) Elevated troponin: I do not see any signs of active cardiac ischemia and believe this is due to his rhabdomyolysis and acute renal failure. 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 Increased movement today with sedation attempted to be weaned, unfortunately tachypnic as well. Tele reviewed: afib rates controlled Review of Systems Review of Systems: Unobtainable due to endotracheal tube Physical Exam Physical Exam: General: Intubated, sedated. No acute distress. morbidly obese. HEENT: Normocephalic, atraumatic. Pupils equal, round and reactive to light and accommodation. Extraocular muscles are intact. Anicteric sclera. Moist mucous membranes. Neck: No JVD. No bruit. Cardiovascular: irregularly irregular, unable to appreciate murmur, rub or gallop. Pulmonary: Clear to auscultation bilaterally. No rales, rhonchi, or wheezing. Abdomen: Bowel sounds x 4, soft. No rebound, guarding or tenderness. No organomegaly. Extremities: No clubbing, cyanosis or edema. +2 pedal pulses bilaterally. Skin: Warm and dry. Results & Data Vital Signs (Past 12 Hours) Vital Signs Temp Pulse Pulse Resp BP Pulse Ox 04/29/19 08:40 25 H 04/29/19 08:10 39 H 04/29/19 07:38 115 H 39 H 97 04/29/19 06:00 103 H 27 H 151/71 H 97 04/29/19 05:31 110 H 31 H 96 04/29/19 05:00 110 H 30 H 106/62 96 04/29/19 04:00 38 C H 101 H 28 H 144/61 H 97 04/29/19 03:00 93 H 28 H 117/42 L 98 04/29/19 02:51 114 H 27 H 98 04/29/19 02:00 87 28 H 114/43 L 98 04/29/19 01:00 95 H 25 H 106/42 L 98 04/29/19 00:28 37.6 C H 90 25 H 114/44 L 97 04/28/19 23:47 104 H 26 H 97 04/28/19 23:00 95 H 25 H 114/44 L 97
--- NOTE | 2019-04-29 11:03 | Infectious Disease Consult ---
Date of Consultation April 29, 2019 Assessment & Plan (1) Gram positive sepsis: pt will continue on current abx, maintain vanco trough 15-20. follow repeat cultures, currently pending. ? additional OR. suggest change to Rocephin 2g IV Q24h 4-6 weeks when able to de escalte. will follow. History of Present Illness Attending Physician: Rashaad Perrin MD pt admitted with elevated blood sugar and weakness. daughter at bedside, states he was not complaining of anything but also states he normally does not complain. He was found to have high grade fevers, persistent. tmax 04/26- 41.2, 04/27 38.5, 04/28 38.5, afebrile this am. On Vanco and zosyn, random vanco level 18.6 yesterday. blood cultures growing MSSA. Found to have sacral ulcer with necrosis, went to OR for I&D and perirectal abscess found and drained, cultures grew MSSA. blood cultures from this am pending. Spoke with primary, pt may be returning to OR for colostomy in order to ensure sacral wound healing. He is unable to have vac due to proximitry of wound to anus. He is tolerating abx well. wbc 5. creat 1.3. Echo negative. Plan is continue on broad spectrum abx pending additional surgical plan. No gram negative identified on OR culture to date. pt is sedated on vent, unable to provide ros. ID consulted from de- escalation of abx. Allergies Allergy/AdvReac Type Severity Reaction Status Date / Time No Known Drug Allergies Allergy Verified 04/26/19 10:39 Home Medications Home Medications Medication Instructions Recorded Confirmed Type digoxin 0.125 mg PO QAM #0 07/13/16 04/26/19 History furosemide 80 mg PO BID #0 07/13/16 04/26/19 History omeprazole 20 mg PO QAM #0 07/13/16 04/26/19 History spironolactone 12.5 mg PO QAM #0 07/13/16 04/26/19 History Humulin R U-500 (Conc) Insulin 1 dose CONTINUOUS SUBCUTANEOUS 09/22/16 04/26/19 History INFUSION DIRECTED #0 colchicine 0.6 mg PO QAM #0 09/22/16 04/26/19 History levothyroxine 200 mcg PO QAM #0 03/08/17 04/26/19 History warfarin [Jantoven] 4 mg PO SUTH #0 tab 02/26/18 04/26/19 History allopurinol 300 mg tablet 300 mg PO QPM 05/11/18 04/26/19 History aspirin 81 mg tablet,delayed 81 mg PO QAM 05/11/18 04/26/19 History release atorvastatin 10 mg tablet 10 mg PO QAM 05/11/18 04/26/19 History metolazone 2.5 mg tablet 2.5 mg PO WK tab 05/11/18 04/26/19 History gabapentin 100 mg PO TID 06/24/18 04/26/19 History levothyroxine 50 mcg PO QAM 06/24/18 04/26/19 History duloxetine 60 mg capsule,delayed 60 mg PO QAM 08/31/18 04/26/19 History release metoprolol tartrate 150 mg PO QAM 11/10/18 04/26/19 History bupropion HCl 150 mg PO QAM 12/29/18 04/26/19 History albuterol sulfate 1 puff INHALATION Q6H PRN 04/26/19 04/26/19 History cholecalciferol (vitamin D3) 2,000 unit PO DAILY 04/26/19 04/26/19 History magnesium oxide 400 mg PO DAILY 04/26/19 04/26/19 History metoprolol tartrate 100 mg PO HS 04/26/19 04/26/19 History nystatin 1 applic TOPICAL BID PRN 04/26/19 04/26/19 History sennosides [senna] 8.6 mg PO BID 04/26/19 04/26/19 History warfarin 8 mg PO MOTUWEFRSA 04/26/19 04/26/19 History Patient History Medical History Closed fracture of thyroid cartilage (Resolved) Chronic anticoagulation (Chronic) Paroxysmal atrial fibrillation (Chronic) Shingles rash (Resolved) Hypertension (Chronic) Diastolic CHF (Chronic) Tachy-sherry syndrome (Chronic) Pulmonary embolism (Resolved) B/L- 5+ years ago Sleep apnea (Chronic) CPAP Atrial fibrillation (Chronic) paroxysmal Hyperlipidemia (Chronic) Depression (Chronic) Diabetes mellitus, type 2 (Chronic) insulin pump Hypothyroidism (Chronic) Osteoarthritis (Chronic) Claustrophobia (Chronic) Interstitial lung disease (Chronic) Morbid obesity (Chronic) Atrial flutter (Chronic) Sarcoidosis (Chronic) possible- evaluated by pulmonary; felt no active sarcoidosis and would not merit steroid therapy given weight/diabetic state. Fatty liver (Chronic) Bifascicular block (Chronic) CKD (chronic kidney disease) stage 3, GFR 30-59 ml/min (Chronic) COPD, moderate (Chronic) Tachy-sherry syndrome (Chronic) Nocturnal hypoxemia (Chronic) Tachycardia induced cardiomyopathy (Chronic) "prior EF of 25% while in aflutter, subsequently normal in NSR" Gout (Chronic) Surgical History Hx of carpal tunnel repair (Chronic) H/O prior ablation treatment (Chronic) History of bronchoscopy (Resolved) Pacemaker (Chronic) Implanted 02/2017 secondary to Sinus node dysfunction/tachy sherry syndrome/3rd degree AVB [employer] Pacer check 12/24/17 History of cholecystectomy (Chronic) History of extraction of renal calculus (Resolved) History of arthroscopic knee surgery (Resolved) History of lung surgery (Resolved) thoracoscopy, right VATS, wedge resection History of umbilical hernia repair (Resolved) History of cataract surgery (Resolved) local anesthesia only per pt H/O cardiac radiofrequency ablation Family History Mother Cancer Social History Preferred Language: Danish Communication Ability: on Vent Visual Impairment: No Limitations Hearing Ability: Normal Apartment 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 Required: No Beliefs That Will Affect Care: None marital status: Current Living Situation: Alone Other Information That Helps Us Care for You: No Feels Safe at Home: Yes Safety Concerns: Feels Safe At This Time Smoking Status: Former smoker Second Hand Exposure: No ; Hx Alcohol Use: No Hx Substance Use: No Review of Systems Review of Systems: Unobtainable due to endotracheal tube Physical Exam Constitutional: well developed and well nourished; no acute distress Eyes: no eyelid abnormality and no conjunctival abnormality ENMT: ett Neck: normal visual inspection Respiratory: normal respiratory effort, lungs clear to auscultation Cardiovascular: RRR, no murmur, no edema Gastrointestinal (Abdomen): normal bowel sounds, soft, nontender, no hepatosplenomegaly Musculoskeletal: Head/Neck/Chest: + head abnormal to inspection, normocephalic and head atraumatic Skin: no rashes, warm and dry Psychiatric: sedated on vent Results & Data Vital Signs (Past 12 Hours) Vital Signs Temp Pulse Pulse Resp BP Pulse Ox 04/29/19 08:40 25 H 04/29/19 08:10 39 H 04/29/19 07:38 115 H 39 H 97 04/29/19 06:00 103 H 27 H 151/71 H 97 04/29/19 05:31 110 H 31 H 96 04/29/19 05:00 110 H 30 H 106/62 96 04/29/19 04:00 38 C H 101 H 28 H 144/61 H 97 04/29/19 03:00 93 H 28 H 117/42 L 98 04/29/19 02:51 114 H 27 H 98 04/29/19 02:00 87 28 H 114/43 L 98 04/29/19 01:00 95 H 25 H 106/42 L 98 04/29/19 00:28 37.6 C H 90 25 H 114/44 L 97 04/28/19 23:47 104 H 26 H 97 04/28/19 23:00 95 H 25 H 114/44 L 97 Laboratory Results Microbiology 04/26/19 10:57 Blood Aerobic Blood Culture - Final Staphylococcus aureus 04/26/19 10:57 Blood Anaerobic Blood Culture - Final Staphylococcus aureus 04/26/19 10:26 Blood Aerobic Blood Culture - Final Staphylococcus aureus 04/26/19 10:26 Blood Anaerobic Blood Culture - Final Staphylococcus aureus 04/26/19 18:48 Sacrum Gram Stain - Final 04/26/19 18:48 Sacrum Aerobic and Anaerobic Culture - Preliminary Staphylococcus aureus 04/26/19 11:50 Urine,Clean Catch Urine Culture - Final Three types of organisms present, all high counts. Repeat collection recommended. No further identifications or sensitivities to follow. PG Care Time/CCT Total # of Minutes Spent Total Time Spent with Patient: Total time spent is greater than 50% in coordination of care (as documented) at patient's floor/unit and/or counseling patient:
[2019-04-29] MEDS ORDERED: ACETAMINOPHEN SOLN 325 MG/10.15 ML UDC ONE ×2 (11:30→18:34)
[2019-04-29] MEDS: POT PHOSPHATE MONOBASIC W/ SOD TAB NG SCH ×3 (11:35→18:35)
[2019-04-29] MEDS: NYSTATIN POWDER 15GM BTL EXT PRN (11:35)
[2019-04-29] MEDS: buPROPion HCl 75 MG TABLET NG SCH ×2 (11:35→20:36)
[2019-04-29] MEDS: MAGNESIUM OXIDE 400 MG TAB NG SCH ×2 (11:35→16:21)
[2019-04-29] MEDS: FEEDING WATER FLUSH NG SCH ×3 (11:36→20:36)
[2019-04-29] MEDS: GABAPENTIN 250 MG/5 ML 470 ML BTL NG SCH ×2 (11:36→21:14)
[2019-04-29] MEDS ORDERED: Nursing to Pharmacy Communication ONE ×2 (11:54→18:24)
--- NOTE | 2019-04-29 12:34 | Surgery Progress Note ---
Date of Service April 29, 2019 Assessment & Plan (1) Diabetic ulcer of right buttock associated with diabetes mellitus due to underlying condition, with necrosis of muscle: Dr. Ortiz assisted with dressing change continue daily packing changes re-eval in a few days for wound vac Subjective remains intubated Physical Exam Skin: wound remains clean, viable tissue Results & Data Vital Signs (Past 12 Hours) Vital Signs Temp Pulse Pulse Resp BP Pulse Ox 04/29/19 11:36 140 H 35 H 95 04/29/19 08:40 25 H 04/29/19 08:10 39 H 04/29/19 07:38 115 H 39 H 97 04/29/19 06:00 103 H 27 H 151/71 H 97 04/29/19 05:31 110 H 31 H 96 04/29/19 05:00 110 H 30 H 106/62 96 04/29/19 04:00 38 C H 101 H 28 H 144/61 H 97 04/29/19 03:00 93 H 28 H 117/42 L 98 04/29/19 02:51 114 H 27 H 98 04/29/19 02:00 87 28 H 114/43 L 98 04/29/19 01:00 95 H 25 H 106/42 L 98 PG Care Time/CCT Total # of Minutes Spent Total Time Spent with Patient: Total time spent is greater than 50% in coordination of care (as documented) at patient's floor/unit and/or counseling patient:
--- NOTE | 2019-04-29 13:40 | Hospitalist Progress Note ---
Date of Service April 29, 2019 Assessment & Plan (1) Sepsis: sepsis secondary to bacteremia from Staphylococcus aureus likely from necrosis of right buttock ulceration -69-year-old male with diabetes admitted with mild DKA, acute kidney injury, and severe sepsis likely secondary to deep soft tissue infection. Status post urgent debridement on 04/27/19 He currently remains intubated -patient was initially on Vancomycin with Zosyn but cultures returning as MSSA so need for MRSA coverage and vanocomycin can be stopped on 04/28/19 -discussed with Infectious Disease Dr. Pineda who recommends to continue Zosyn for now -a simeon issue at this time is source control of infection, patient's buttock debridement area is very large in size and wound vac is unable to be placed at this time. Patient may get a concurrent anaerobic bacteremia from defecation -will need surgery to evaluate if any need or if patient has stability to be able to get diversion of the gastrointestinal tract if wound healing is not sufficient for wound vac placement -appreciate ICU management of mechanical ventilator and sedation while intubated and their assessments on when patient can be weaned off mechanical ventilation (2) Lactic acidosis: -admission lactic acid 6.6 -lactic acidosis has resolved (3) Decubitus ulcer: -Present on admission of necrosis of right buttock ulceration -Operation Date: 04/26/19: s/p Debridement necrotic right buttock ulceration; drainage of perirectal abscess; incision of thrombosed hemorrhoid -since debridement patient remains intubated while in the ICU to await the further improvements of patient's metabolic processes before extubation -a simeon issue at this time is source control of infection, patient's buttock debridement area is very large in size and wound vac is unable to be placed at this time. Patient may get a concurrent anaerobic bacteremia from defecation -will need surgery to evaluate if any need or if patient has stability to be able to get diversion of the gastrointestinal tract if wound healing is not sufficient for wound vac placement (4) Atrial fibrillation with RVR: -secondary to sepsis and metabolic derangements -was on oral elixir digoxin 0.125 mg and now stopped , digoxin level to be checked again on 04/30/19 -is off IV esmolol but continues to have atrial fibrillation with rapid ventricular response -is now on oral metoprolol through NG tube -on IV heparin (5) Elevated troponin: -elevated troponins from demand ischemia due to to sepsis and atrial fibrillation with rapid ventricular response -on IV heparin (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 (7) Pacemaker: -Pacemaker in place and functioning appropriately as per cardiology evaluation (8) Chronic diastolic CHF (congestive heart failure): History of Non ischemic Cardiomyopathy in the past -Echo 11/2018: Mildly reduced EF, grade 1 diastolic dysfunction -IV Lasix was started on 04/29/19 as patient had multiple IV medications given during ICU stay to date and to help with outputs (9) Acute kidney injury superimposed on CKD: -IV Lasix was started on 04/29/19 as patient had multiple IV medications given during ICU stay to date and to help with outputs -losartan continues to be held because of low blood pressures -has bagley to monitor urine output (10) CKD (chronic kidney disease) stage 3, GFR 30-59 ml/min: -Baseline creatinine should be around 1.3 Rhabdomyolysis -creatinine kinase peaked above 3000 on 04/28/19 likely from continued muscle breakdown products and recent buttock ulcer debridement -monitor creatinine kinase -current level of creatinine kinase is 2218 -patient already receive good amount of IV hydration from IV medications and now got IV diuretics (11) Diabetes mellitus, type 2: Type 2 diabetes mellitus with termite treater current use of insulin and with hyperglycemia Mild Diabetic Ketoacidosis -Patient presenting from home with generalized weakness and frequent falls for the past 3 days prior to admission with insulin pump became disconnected at some point in time throughout the night and patient was unable to reconnect -currently on insulin drip -on tube feeds for now Transaminitis -04/26/19 liver ultrasound Exam is compromised suboptimal penetration. The liver is enlarged and echogenic. Pancreas is obscured by overlying bowel gas. Caliber of the common bile duct is at the upper limits of normal following cholecystectomy, measuring 7 mm. There is a small fluid-filled structure within the cholecystectomy bed which may reflect a small gallbladder remnant. There is no right hydronephrosis -AST above 200 -monitor liver function enzymes (12) Hypothyroidism: -hold levothyroxine for now given tachycardia (13) COPD, moderate: -is intubated (14) SALAS (obstructive sleep apnea): -is intubated (15) History of pulmonary embolism: -History of pulmonary embolism in the past Restart the patient's Wellbutrin, Celexa, and Neurontin. (16) DVT prophylaxis: -On IV heparin daughter Bing [phone] daughter Tatyana sister Enrike [phone] Subjective Patient seen and examine din the ICU. on IV insulin. on IV heparin. has IV sedatives. remains intubated. has been off IV vasopressors and off IV esmolol Physical Exam Constitutional: + obese Eyes: PERRL, conjunctivae normal, anicteric sclerae ENMT: external ear and nose normal, oropharynx normal Neck: normal visual inspection Respiratory: intubated Cardiovascular: Rate/Rhythm: + tachycardic Gastrointestinal (Abdomen): normal bowel sounds, soft, nontender, no hepatosplenomegaly Neurologic: sedated Genitourinary: + penis abnormality (bagley) Results & Data Vital Signs (Past 12 Hours) Vital Signs Temp Pulse Pulse Resp BP BP Pulse Ox 04/29/19 13:00 136 H 98/76 L 93 04/29/19 12:31 112 H 111/49 L 90 04/29/19 12:00 143 H 128/70 96 04/29/19 11:36 140 H 35 H 95 04/29/19 11:30 38.7 C H 144 H 153/106 H 95 04/29/19 11:01 142 H 149/65 H 95 04/29/19 10:31 122 H 133/60 95 04/29/19 10:01 38.5 C H 132 H 137/65 95 04/29/19 09:30 106 H 147/73 H 95 04/29/19 09:00 129 H 125/70 95 04/29/19 08:40 25 H 04/29/19 08:31 114 H 114/66 96 04/29/19 08:10 39 H 04/29/19 08:00 38 C H 104 H 121/61 96 04/29/19 07:38 115 H 39 H 97 04/29/19 07:31 103 H 125/63 96 04/29/19 07:00 118 H 126/64 97 04/29/19 06:00 103 H 27 H 151/71 H 97 04/29/19 05:31 110 H 31 H 96 04/29/19 05:00 110 H 30 H 106/62 96 04/29/19 04:00 38 C H 101 H 28 H 144/61 H 97 04/29/19 03:00 93 H 28 H 117/42 L 98 04/29/19 02:51 114 H 27 H 98 04/29/19 02:00 87 28 H 114/43 L 98 (1) Diabetes mellitus, type 2 Chronic kidney disease stage: stage 3 (moderate) Diabetes mellitus com plication detail: with chronic kidney disease Diabetes mellitus complication status: with kidney complications Diabetes mellitus termite treater insulin use: with detention use Qualified Code(s): E11.22 - Type 2 diabetes mellitus with diabetic chronic kidney disease; N18.3 - Chronic kidney disease, stage 3 (moderate); 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
[2019-04-29] MEDS: FAMOTIDINE 20 MG TAB OG SCH (20:35)
[2019-04-30] MEDS: METOPROLOL TARTRATE 50 MG TAB NG SCH ×4 (00:04→17:29)
[2019-04-30] MEDS: FEEDING WATER FLUSH NG SCH ×6 (00:05→21:07)
[2019-04-30] MEDS ORDERED: PROPOFOL IV EMULSION 10 MG/ML 100 ML VIAL IV ONE ×2 (00:24→04:18)
[2019-04-30] MEDS: PIPERACILLIN/TAZOBACTAM 4.5 GM in DEXTROSE 5% 100 ML IV SCH ×3 (02:45→17:29)
[2019-04-30] MEDS: DEXTROSE 5% IV SCH (03:00)
[2019-04-30] MEDS: PHENYLEPHRINE HCL IV SCH (03:00)
[2019-04-30 04:37] LABS: Partial Thromboplastin Ratio 1.7
[2019-04-30 04:48] LABS: BUN Creatinine Ratio 18.3 (10-20); Calcium 8.4 mg/dl (8.5-10.1); Creatinine Clr Calc Pharmacy 87.7 ml/min; Est GFR (African American) 68.6; Est GFR (Non-African American) 59.2; Magnesium 1.6 mg/dl (1.8-2.4); Phosphorus 2.5 mg/dl (2.5-4.9); Potassium 3.7 mmol/L (3.5-5.1)
[2019-04-30 04:56] LABS: Hemoglobin 11.8 g/dL (14.0-18.0); Mean Corpuscular Hemoglobin 30.6 pg (25-34); Mean Corpuscular Hgb Conc 33.7 g/dL (32-36); Mean Corpuscular Volume 90.7 fL (80-100); RDW Coefficient of Variation 15.8 % (11.5-14.5); RDW Standard Deviation 52.7 fL (36.4-46.3); Red Blood Count 3.86 M/uL (4.7-6.1); White Blood Count 8.29 K/uL (4.8-10.8)
[2019-04-30] MEDS ORDERED: LEVOTHYROXINE SODIUM 50 MCG TABLET PO SCH (05:00)
[2019-04-30] MEDS: LEVOTHYROXINE SODIUM 50 MCG TABLET NG SCH (05:38)
[2019-04-30] MEDS: LEVOTHYROXINE SODIUM 200 MCG TABLET NG SCH (05:38)
[2019-04-30 05:46] LABS: Mean Platelet Volume 11.5 fL (7.4-10.4); Platelet Count 98 K/uL (130-400)
[2019-04-30 05:50] LABS: Basophils # (auto) 0.03 K/uL (0-0.2); Basophils % (auto) 0.4 %; Eosinophils # (auto) 0.12 K/uL (0-0.5); Eosinophils % (auto) 1.4 %; Immature Granulocytes # (auto) 0.16 K/uL (0.00-0.02); Immature Granulocytes % (auto) 1.9 %; Lymphocytes # (auto) 1.57 K/uL (1.2-3.4); Lymphocytes % (auto) 18.9 %; Monocytes # (auto) 0.95 K/uL (0.11-0.59); Monocytes % (auto) 11.5 %; Neutrophils # (auto) 5.46 K/uL (1.4-6.5); Neutrophils % (auto) 65.9 %
[2019-04-30] MEDS: INSULIN REGULAR 250 UNITS in SODIUM CHLORIDE 0.9% 247.5 ML IV SCH (07:00)
--- NOTE | 2019-04-30 07:14 | XRay Report ---
XR chest 1V portable CLINICAL HISTORY: f/u dyspnea COMPARISON STUDY: 04/29/2019 FINDINGS: Endotracheal tube 4 cm with a chronic. Persistent prominence of the pulmonary vasculature. Bibasilar atelectatic change. Permanent bipolar cardiac pacemaker is in good position. IMPRESSION: 1. Unchanged findings of congestive failure/pulmonary edema. 2. Endotracheal tube 4 cm above the alexandra. The above report was generated using voice recognition software. It may contain grammatical, syntax or spelling errors. Electronically signed by: Jcarlos Petersen M.D. 04/30/2019 7:12 AM
[2019-04-30] MEDS: ICU ELECTROLYTE REPLACEMENT PROTOCOL SCH (07:33)
[2019-04-30] MEDS: POT PHOSPHATE MONOBASIC W/ SOD TAB NG SCH ×3 (08:04→15:20)
[2019-04-30] MEDS: POTASSIUM CHLORIDE 20 MEQ/15 ML UDC NG SCH ×2 (08:04→11:43)
[2019-04-30] MEDS: MAGNESIUM OXIDE 400 MG TAB NG SCH ×4 (08:04→21:37)
[2019-04-30] MEDS: GABAPENTIN 250 MG/5 ML 470 ML BTL NG SCH ×3 (08:05→21:07)
[2019-04-30] MEDS: buPROPion HCl 75 MG TABLET NG SCH ×2 (08:07→21:08)
[2019-04-30] MEDS: FAMOTIDINE 20 MG TAB OG SCH ×2 (08:07→21:07)
[2019-04-30] MEDS: PROPOFOL 1,000 MG/100 ML VIAL IV PRN ×3 (08:25→21:33)
--- NOTE | 2019-04-30 08:33 | Critical Care Progress Note ---
Date of Service April 30, 2019 Assessment & Plan (1) Admitted to intensive care unit: Reason Critically Ill: 69-year-old male with diabetes and morbid obesity admitted with mild DKA, acute kidney injury, and severe sepsis 2/2 deep soft tissue infection s/p debridement 04/26. He is currently ventilated and on pressors, weaning off 24-hour events: Diuresis initiated. Eyes no slightly negative. Failed SBT this morning due to tachypnea. NEURO Sedation with propofol Intermittent agitation: Restarted the patient's Wellbutrin, Celexa, and Neurontin. Will consider Zyprexa if persists CV Afib w/ RVR- likely 2/2 DKA, dehydration, sepsis, significant acute renal failure, respiratory distress Continue Dig. Continue PO Metoprolol 50 mg q6h - as needed IV 5 mg pushes Anticoagulated on Coumadin, INR 1.3; started on IV heparin bridge 2/2 high [id number] and history of PE. If deemed no further surgeries necessary, can restart warfarin and follow INR closely Reasonable to keep HR <120 Appreciate Cardiology recommendations Low plts- HIT testing pending. Cont trend Elevated Trop- likely 2/2 rhabdomyolysis and acute renal failure ECHO reviewed HLD, HTN, CAD- Cont home Aspirin, holding statin CHF- ECHO November 2018: Mildly reduced EF, grade 1 diastolic dysfunction. As below, holding home diuretics due to ALMA ROSA PULM CXR- Mild pulmonary vascular congestion. Repeat showed interval development of pulmonary edema On Mech Vent currently. On home O2 at baseline Failed SBT today , tachypnea increase lasix with goal net negative 1-2L next 24 hours as tolerated by renal function COPD- stable SALAS-we will likely need to extubate to BiPAP Continue MV today and reassess SBT this afternoon or tomorrow ABD/GI Elevated LFT's, improving- likely 2/2 hypoperfusion, sepsis Liver U/S- Fatty infiltration of the liver and hepatomegaly Tube feeds at goal. Will need to be stopped prior to extubation. Will need swallow evaluation prior to initiation of oral intake /RENAL CKD III, GFR 30-59 ml/min ALMA ROSA- Baseline creatinine ~1.3. At baseline now. ARF suspected hypoperfusion, ATN Diuretics as noted and follow kidney function ENDO DM2- Elevated BSG 2/2 insulin pump being disconnected overnight. BSG 521 on admit Normal pH and bicarb, elevated AG 16 and b-hydroxybutyric acid 15 (normalized now) ICU Hyperglycemic protocol- insulin gtt right now A1C 9.5 Hypothyroidism- Cont levothyroxine ID Concern for Sepsis-Lactic acid 6.6, WBC 15 K, tachycardic; afebrile, BP low- normal on admit. Serum procalcitonin elevated. Etiology likely 2/2 perirectal abscess. Doubt aspiration PNA vs biliary (h/o cholecystectomy) 04/26 debridement necrotic R buttock ulceration; drainage of perirectal abscess; incision of thrombosed hemorrhoid. No wound vac 2/2 proximity to rectum CXR- No evidence of focal pulmonary consolidation Elevated LFT- Liver U/S- reviewed as above Cont IV Zosyn. DC'd Vanc Wound cx- Staph Aureus . Urine cultures- pending. Blood cx- Staph Aureus LA WNL now Repeat blood cx negative to date Appreciate ID consult- suggest change to Rocephin 2g IV Q24h 4-6 weeks when able to de-escalte Remains febrile but WBC normal. HEME Stable H/H. No concern for acute bleeding Trend Daily CBC's LINES: PIVx3, L IJ CVC, A-line DVT Prophylaxis: Heparin FULL CODE DISPO: ICU Subjective Patient seen and examined. Discussed with ICU nurse at bedside. He remains hemodynamically stable. He was started on diuretics yesterday and was slightly negative. No adverse effects from diuresis. He remains mildly febrile and in atrial fibrillation although heart rates been better controlled ranging from 100-120s. Pressors remain off. Consultation completed and reviewed. He is tolerating tube feeding. No other events overnight. Review of Systems Review of Systems: Unobtainable due to endotracheal tube Results & Data Vital Signs (Past 12 Hours) Vital Signs Temp Pulse Pulse Resp BP BP Pulse Ox 04/30/19 07:34 112 H 37 H 97 04/30/19 06:00 38.3 C H 87 30 H 125/75 97 04/30/19 05:51 105 H 25 H 96 04/30/19 05:00 38.3 C H 105 H 33 H 125/75 97 04/30/19 03:35 120 H 34 H 97 04/30/19 03:00 38.6 C H 101 H 26 H 136/79 97 04/30/19 02:00 38.6 C H 117 H 30 H 136/84 97 04/30/19 01:00 38.6 C H 108 H 25 H 139/66 93 04/30/19 00:00 38.6 C H 117 H 28 H 156/61 H 97 04/29/19 23:30 122 H 29 H 96 04/29/19 23:00 38.6 C H 124 H 29 H 142/59 H 97 04/29/19 22:00 38.6 C H 121 H 121 H 26 H 119/75 119/75 96 04/29/19 21:00 96 H 26 H 111/86 96 Laboratory Results 04/30/19 04:46 04/30/19 04:02 Diagnostic Findings Chest x-ray from 04/30/2019 was independently reviewed. Mild cardiomegaly. Tubes and lines in appropriate position. Mild basilar infiltrates slightly increased, favor atelectasis Coding Level of Care Code 31297 Subseq Hosp Care Lvl 3 Diagnoses Admitted to intensive care unit Z78.9 Time Spent (min) 40
--- NOTE | 2019-04-30 10:49 | Cardiology Progress Note ---
Date of Service April 30, 2019 Assessment & Plan (1) Atrial fibrillation with RVR: Continue metoprolol via oral gastric tube. Digoxin level 0.4. Continue digoxin via orogastric tube 0.125 mg by mouth daily, will administer an additional dose intravenously. Renal function is stable to allow digoxin use. I anticipate ongoing struggles with controlling his ventricular rate in the setting of sepsis and fever. Therefore a ventricular rate in the range of 100 220 bpm I think is reasonable. Mild thrombocytopenia noted. Heparin associated antibody drawn. Continue cautious unfractioned heparin for stroke prophylaxis, DVT prophylaxis. Thrombocytopenia likely due to sepsis. 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 (3) Sepsis: Staph aureus growth from blood cultures and wound culture, status post debridement of necrotic buttock, perirectal ulcer. Continue antibiotics. (4) Pulmonary vascular congestion: echocardiogram technically limited, therefore ejection fraction cannot be determined. Agree with diuretics especially given ongoing use of IV antibiotics, for negative fluid balance. Baseline creatinine appears to be in the range of 1.5 mg/dL, he was admitted with acute kidney injury, creatinine 3.31, today creatinine is 1.25. Subjective Chief complaint: Follow-up atrial fibrillation Subjective: She remains on the ventilator. Atrial fibrillation with rates averaging in the 120 bpm range present. No significant additional arrhythmia noted on telemetry. Patient remains febrile, most recent temperature was 38.3 C. Review of Systems Review of Systems: Unobtainable due to endotracheal tube Physical Exam Physical Exam: Temp Pulse Resp BP Pulse Ox 38.3 C H 118 H 35 H 125/75 95 04/30/19 06:00 04/30/19 10:16 04/30/19 10:16 04/30/19 06:00 04/30/19 10:16 Constitutional: + morbidly obese Critically ill in appearance Respiratory: Mildly decreased breath sounds at the bases Cardiovascular: Distant heart sounds, no murmur discernible Trace pedal edema Gastrointestinal (Abdomen): normal bowel sounds, soft, nontender, no hepatosplenomegaly Results & Data Vital Signs (Past 12 Hours) Vital Signs Temp Pulse Pulse Resp BP Pulse Ox 04/30/19 10:16 118 H 35 H 95 04/30/19 08:15 25 H 04/30/19 07:34 112 H 37 H 97 04/30/19 06:00 38.3 C H 87 30 H 125/75 97 04/30/19 05:51 105 H 25 H 96 04/30/19 05:00 38.3 C H 105 H 33 H 125/75 97 04/30/19 03:35 120 H 34 H 97 04/30/19 03:00 38.6 C H 101 H 26 H 136/79 97 04/30/19 02:00 38.6 C H 117 H 30 H 136/84 97 04/30/19 01:00 38.6 C H 108 H 25 H 139/66 93 04/30/19 00:00 38.6 C H 117 H 28 H 156/61 H 97 04/29/19 23:30 122 H 29 H 96 04/29/19 23:00 38.6 C H 124 H 29 H 142/59 H 97 Laboratory Results Coagulation 04/30/19 Range/Units 04:02 APTT 45.0 H (21.0-31.0) Seconds CBC 04/30/19 Range/Units 04:46 WBC 8.29 (4.8-10.8) K/uL RBC 3.86 L (4.7-6.1) M/uL Hgb 11.8 L (14.0-18.0) g/dL Hct 35.0 L (42-52) % Plt Count 98 L (130-400) K/uL Neut # (Auto) 5.46 (1.4-6.5) K/uL Lymph # (Auto) 1.57 (1.2-3.4) K/uL Calloway # (Auto) 0.95 H (0.11-0.59) K/uL Eos # (Auto) 0.12 (0-0.5) K/uL Baso # (Auto) 0.03 (0-0.2) K/uL Comprehensive Metabolic Panel 04/30/19 Range/Units 04:02 Sodium 134 L (136-145) mmol/L Potassium 3.7 D (3.5-5.1) mmol/L Chloride 104 (98-107) mmol/L Carbon Dioxide 25 (21-32) mmol/L BUN 23 H (7-18) mg/dl Creatinine 1.25 (0.6-1.4) mg/dl Glucose 162 H (70-99) mg/dl Calcium 8.4 L (8.5-10.1) mg/dl Intake and Output 04/29/19 04/30/19 04/30/19 22:59 06:59 14:59 Intake Total 876.641 / 3654.104 773.565 / 3654.104 308.35 / 308.35 Output Total 900 / 3895 925 / 3895 Balance -23.359 / -240.896 -151.435 / -240.896 308.35 / 308.35 Intake: IV 756.641 / 2554.104 318.565 / 2554.104 308.35 / 308.35 HEPARIN SODIUM/DEXTROSE 25,000 379.35 / 675.00 264.15 / 264.15 units In 500 ml @ 1,350 UNITS/ HR 27 mls/hr IV .[id number] OFE Rx #:[id number] NovoLIN R 250 UNITS In Nss 247. 86.896 / 268.046 98.565 / 268.046 44.2 / 44.2 5 ml @ 13 UNITS/HR 13 mls/hr IV .[id number] OFE Rx#:[id number] Zosyn 4.5 gm In D5 100 ml @ 30 120 / 360 120 / 360 mls/hr IV Q8H OFE Rx#:[id number] DIPRIVAN 1,000 mg In 100 ml @ 170.395 / 467.058 100 / 467.058 25 MCG/KG/MIN 24.66 mls/hr IV . Q4H4M OFE Rx#:[id number] Oral 120 / 710 215 / 710 Tube Feeding 240 / 240 Output: Urine Amount (Catheter) 900 / 3895 925 / 3895 Valentine/Indwelling 900 / 3895 925 / 3895
[2019-04-30] MEDS ORDERED: DIGOXIN 125 MCG in SYRINGE 9.5 ML IV ONE (11:00)
[2019-04-30] MEDS: fentaNYL citrate 100 MCG/2 ML VIAL IV PRN ×2 (11:04→21:36)
[2019-04-30] MEDS ORDERED: FUROSEMIDE 40 MG/4 ML VIAL IV ONE (11:35)
[2019-04-30] MEDS ORDERED: Nursing to Pharmacy Communication ONE (12:07)
--- NOTE | 2019-04-30 12:23 | Hospitalist Progress Note ---
Date of Service April 30, 2019 Assessment & Plan (1) Sepsis: sepsis secondary to bacteremia from Staphylococcus aureus likely from necrosis of right buttock ulceration -69-year-old male with diabetes admitted with mild DKA, acute kidney injury, and severe sepsis likely secondary to deep soft tissue infection. Status post urgent debridement on 04/27/19 He currently remains intubated -patient was initially on Vancomycin with Zosyn but cultures returning as MSSA so need for MRSA coverage and vanocomycin can be stopped on 04/28/19 -04/29/19: discussed with Infectious Disease Dr. Pineda who recommends to continue Zosyn for now -a simeon issue at this time is source control of infection, patient's buttock debridement area is very large in size and wound vac is unable to be placed at this time. Patient may get a concurrent anaerobic bacteremia from defecation -will need surgery to evaluate if any need or if patient has stability to be able to get diversion of the gastrointestinal tract if wound healing is not sufficient for wound vac placement -continue Zosyn IV antibiotics -appreciate ICU management of mechanical ventilator and sedation while intubated and their assessments on when patient can be weaned off mechanical ventilation (2) Lactic acidosis: -admission lactic acid 6.6 -lactic acidosis has resolved (3) Decubitus ulcer: -Present on admission of necrosis of right buttock ulceration -Operation Date: 04/26/19: s/p Debridement necrotic right buttock ulceration; drainage of perirectal abscess; incision of thrombosed hemorrhoid -since debridement patient remains intubated while in the ICU to await the further improvements of patient's metabolic processes before extubation -a simeon issue at this time is source control of infection, patient's buttock debridement area is very large in size and wound vac is unable to be placed at this time. Patient may get a concurrent anaerobic bacteremia from defecation -will need surgery to evaluate if any need or if patient has stability to be able to get diversion of the gastrointestinal tract if wound healing is not sufficient for wound vac placement -continue Zosyn IV antibiotics (4) Atrial fibrillation with RVR: -secondary to sepsis and metabolic derangements -is off IV esmolol but continues to have atrial fibrillation with rapid ventricular response -is now on oral metoprolol through NG tube -cardiology service is continuing digoxin -on IV heparin (5) Elevated troponin: -elevated troponins from demand ischemia due to to sepsis and atrial fibrillation with rapid ventricular response -on IV heparin (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 (7) Pacemaker: -Pacemaker in place and functioning appropriately as per cardiology evaluation (8) Chronic diastolic CHF (congestive heart failure): History of Non ischemic Cardiomyopathy in the past -Echo 11/2018: Mildly reduced EF, grade 1 diastolic dysfunction -IV Lasix was started on 04/29/19 as patient had multiple IV medications given during ICU stay to date and to help with outputs -IV Lasix is continued on 04/30/19 (9) Acute kidney injury superimposed on CKD: -peak creatinine during hospital stay of 2.99 by 04/27/19 -currently the creatine is 1.25 as of 04/30/19 and shows resolution of acute kidney injury (10) CKD (chronic kidney disease) stage 3, GFR 30-59 ml/min: -Baseline creatinine should be around 1.3 Rhabdomyolysis -creatinine kinase peaked above 3000 on 04/28/19 likely from continued muscle breakdown products and recent buttock ulcer debridement -current level of creatinine kinase on 04/30/19 is 1055 which shows resolving rhabdomyolysis Hypomagnesemia -patient receiving oral magnesium supplements via NG tube and on ICU repletion protocol (11) Diabetes mellitus, type 2: Type 2 diabetes mellitus with correction current use of insulin and with hyperglycemia Mild Diabetic Ketoacidosis -Patient presenting from home with generalized weakness and frequent falls for the past 3 days prior to admission with insulin pump became disconnected at some point in time throughout the night and patient was unable to reconnect -currently on insulin drip -on tube feeds for now Transaminitis -04/26/19 liver ultrasound Exam is compromised suboptimal penetration. The liver is enlarged and echogenic. Pancreas is obscured by overlying bowel gas. Caliber of the common bile duct is at the upper limits of normal following cholecystectomy, measuring 7 mm. There is a small fluid-filled structure within the cholecystectomy bed which may reflect a small gallbladder remnant. There is no right hydronephrosis -AST above 200 -monitor liver function enzymes (12) Hypothyroidism: -levothyroxine has been resumed by ICU physician (13) COPD, moderate: -is intubated (14) SALAS (obstructive sleep apnea): -is intubated (15) History of pulmonary embolism: -History of pulmonary embolism in the past continue home dose gabapentin, buproprion, duloxetine via NG tube (16) DVT prophylaxis: -On IV heparin daughter Bing [phone] daughter Tatyana sister Enrike [phone] Subjective Patient seen and examined with IV Zosyn, IV heparin drip, IV insulin, IV propafol running but at reduced rate to allow for period of being awake. Patient was explained hospital course. He has eye tracking movements but sometimes gazes out into the distance so cannot ascertain if he truly understands what is going on. Patient's heart rate is fast and it is unclear whether this partly from being awake and remains intubated. As per nurse, patient did not do well with attempts for weaning as he became tachypneic. Physical Exam Constitutional: + obese Eyes: PERRL, conjunctivae normal, anicteric sclerae ENMT: external ear and nose normal, oropharynx normal Neck: normal visual inspection Respiratory: intubated Cardiovascular: Rate/Rhythm: + tachycardic Gastrointestinal (Abdomen): normal bowel sounds, soft, nontender, no hepatosplenomegaly Musculoskeletal: write restraints. waffle boots Neurologic: PERRL, EOMI, accommodation nl, no face palsy, no dysarthria sedation reduced and patient awake and has eye tracking movements. does not appear to be able to follow directions well Genitourinary: + penis abnormality (bagley) Results & Data Vital Signs (Past 12 Hours) Vital Signs Temp Pulse Pulse Resp BP BP Pulse Ox 04/30/19 11:43 112 H 04/30/19 11:10 124 H 108/64 95 04/30/19 10:30 93 H 128/68 95 04/30/19 10:16 118 H 35 H 95 04/30/19 10:00 110 H 137/81 95 04/30/19 09:31 140 H 90/70 L 94 04/30/19 09:01 116 H 126/72 95 04/30/19 08:30 103 H 111/72 95 04/30/19 08:15 25 H 04/30/19 08:01 115 H 129/88 93 04/30/19 07:34 112 H 37 H 97 04/30/19 07:31 109 H 149/73 H 97 04/30/19 07:01 82 149/64 H 97 04/30/19 06:00 38.3 C H 87 30 H 125/75 97 04/30/19 05:51 105 H 25 H 96 04/30/19 05:00 38.3 C H 105 H 33 H 125/75 97 04/30/19 03:35 120 H 34 H 97 04/30/19 03:00 38.6 C H 101 H 26 H 136/79 97 04/30/19 02:00 38.6 C H 117 H 30 H 136/84 97 04/30/19 01:00 38.6 C H 108 H 25 H 139/66 93 (1) Diabetes mellitus, type 2 Chronic kidney disease stage: stage 3 (moderate) Diabetes mellitus complication detail: with chronic kidney disease Diabetes mellitus complication status: with kidney complications Diabetes mellitus correction insulin use: with termite exterminator helper use Qualified Code(s): E11.22 - Type 2 diabetes mellitus with diabetic chronic kidney disease; N18.3 - Chronic kidney disease, stage 3 (moderate); Z79.4 - retirement (current) use of insulin (2) Hypothyroidism Hypothyroidism type: unspecified Qualified Code(s): E03.9 - Hypothyroidism, unspecified
[2019-04-30] MEDS: PEPTAMEN INTENSE VHP 1.0 CAL 1,000 ML BAG OG SCH (12:51)
[2019-04-30 13:34] LABS: Partial Thromboplastin Ratio 1.4; Partial Thromboplastin Time 37.9 Seconds (21.0-31.0)
[2019-04-30] MEDS ORDERED: HEPARIN IV BOLUS 9,000 UNITS in SYRINGE 0 ML IV ONE (14:30)
[2019-04-30] MEDS: HEPARIN SODIUM/DEXTROSE 25,000 UNITS/500 ML BAG IV SCH (15:20)
[2019-04-30] MEDS: FUROSEMIDE 40 MG in SYRINGE 0 ML IV SCH ×2 (15:20→21:09)
[2019-04-30] MEDS: NYSTATIN POWDER 15GM BTL EXT PRN (17:30)
[2019-04-30 20:38] LABS: Partial Thromboplastin Ratio 1.9
[2019-04-30 20:44] LABS: Partial Thromboplastin Time 51.7 Seconds (21.0-31.0)
[2019-05-01] MEDS: MAGNESIUM OXIDE 400 MG TAB NG SCH ×2 (00:16→06:05)
[2019-05-01] MEDS: METOPROLOL TARTRATE 50 MG TAB NG SCH ×5 (00:16→23:55)
[2019-05-01] MEDS: FEEDING WATER FLUSH NG SCH ×7 (00:16→23:21)
[2019-05-01] MEDS: PROPOFOL 1,000 MG/100 ML VIAL IV PRN ×2 (00:17→04:36)
[2019-05-01] MEDS: PIPERACILLIN/TAZOBACTAM 4.5 GM in DEXTROSE 5% 100 ML IV SCH ×3 (02:01→17:51)
[2019-05-01] MEDS: PEPTAMEN INTENSE VHP 1.0 CAL 1,000 ML BAG OG SCH (03:52)
[2019-05-01 04:25] LABS: Hemoglobin 11.6 g/dL (14.0-18.0); Mean Corpuscular Hemoglobin 29.7 pg (25-34); Mean Corpuscular Hgb Conc 32.2 g/dL (32-36); Mean Corpuscular Volume 92.3 fL (80-100); Nucleated RBC # (auto) 0.03 K/uL (0-0); Nucleated RBC % (auto) 0.3 %; Platelet Count 116 K/uL (130-400); RDW Coefficient of Variation 15.9 % (11.5-14.5); RDW Standard Deviation 53.5 fL (36.4-46.3); White Blood Count 9.32 K/uL (4.8-10.8)
[2019-05-01] MEDS: HEPARIN SODIUM/DEXTROSE 25,000 UNITS/500 ML BAG IV SCH ×2 (04:36→16:29)
[2019-05-01 04:44] LABS: Albumin Level 1.9 gm/dl (3.4-5.0); BUN Creatinine Ratio 20.8 (10-20); Calcium 8.5 mg/dl (8.5-10.1); Est GFR (Non-African American) 58.6; Magnesium 1.5 mg/dl (1.8-2.4); Potassium 3.3 mmol/L (3.5-5.1)
[2019-05-01 04:47] LABS: Albumin Globulin Ratio 0.5 (0.9-2); Bilirubin,Total 0.9 mg/dl (0.2-1); Globulin 4.2 gm/dl (2.5-4.0); Phosphorus 2.4 mg/dl (2.5-4.9); Total Protein 6.1 gm/dl (6.4-8.2)
[2019-05-01 04:48] LABS: Partial Thromboplastin Ratio 1.7
[2019-05-01 05:51] LABS: Basophils # (auto) 0.03 K/uL (0-0.2); Basophils % (auto) 0.3 %; Eosinophils # (auto) 0.17 K/uL (0-0.5); Eosinophils % (auto) 1.8 %; Immature Granulocytes # (auto) 0.53 K/uL (0.00-0.02); Immature Granulocytes % (auto) 5.7 %; Lymphocytes # (auto) 1.48 K/uL (1.2-3.4); Lymphocytes % (auto) 15.9 %; Monocytes % (auto) 10.7 %; Neutrophils # (auto) 6.11 K/uL (1.4-6.5); Neutrophils % (auto) 65.6 %
[2019-05-01 05:54] LABS: iSTAT Allen Test Pass; iSTAT Art Bld Gas pCO2 Correct 39 mmHg (35-46); iSTAT Art Bld Gas pH Corrected 7.421 (7.35-7.45); iSTAT Arterial Blood Gas HCO3 25 meg/L (19-24); iSTAT Arterial Blood Gas pCO2 37 mmHg (35-46); iSTAT Arterial Blood Gas pH 7.43 (7.35-7.45); iSTAT Arterial Blood Gas pO2 74 mmHg (80-95); iSTAT Arterial Blood Gas pO2 C 78; iSTAT Carbon Dioxide 26 mEq/l (24-31); iSTAT FiO2 40 %; iSTAT Site L Radial
[2019-05-01] MEDS: fentaNYL citrate 100 MCG/2 ML VIAL IV PRN ×3 (06:03→16:06)
[2019-05-01] MEDS: LEVOTHYROXINE SODIUM 200 MCG TABLET NG SCH (06:04)
[2019-05-01] MEDS: LEVOTHYROXINE SODIUM 50 MCG TABLET NG SCH (06:04)
[2019-05-01] MEDS: FUROSEMIDE 40 MG in SYRINGE 0 ML IV SCH ×3 (06:05→20:11)
[2019-05-01] MEDS: POTASSIUM CHLORIDE 20 MEQ/15 ML UDC NG SCH ×3 (06:05→12:08)
[2019-05-01] MEDS ORDERED: HEPARIN IV BOLUS 4,000 UNITS in SYRINGE 0 ML IV ONE ×2 (06:50→15:00)
[2019-05-01] MEDS: INSULIN REGULAR 250 UNITS in SODIUM CHLORIDE 0.9% 247.5 ML IV SCH (06:55)
[2019-05-01] MEDS: DEXTROSE 5% IV SCH (07:19)
[2019-05-01] MEDS: PHENYLEPHRINE HCL IV SCH (07:19)
--- NOTE | 2019-05-01 08:03 | XRay Report ---
XR chest 1V portable HISTORY: resp failure COMPARISON: Chest 04/30/2019. FINDINGS: No pneumothorax. The heart remains mildly enlarged. Nasogastric tube terminates below the l evel the diaphragm. The tip is not included in this study. Endotracheal tube terminates 2.5 cm from t he alexandra. Left jugular catheter terminates at the brachiocephalic/SVC junction. Slight improvement i n the mild pulmonary edema. Bibasilar densities and small bilateral pleural effusions persist. IMPRESSION: 1. Satisfactory support line placement. 2. Slight improvement in the pulmonary edema. 3. Bibasilar effusion/opacities persist. Electronically signed by: Stan Lopez M.D. 05/01/2019 8:02 AM
--- NOTE | 2019-05-01 08:05 | Hospitalist Progress Note ---
Date of Service May 01, 2019 Assessment & Plan (1) Sepsis: sepsis secondary to bacteremia from Staphylococcus aureus likely from necrosis of right buttock ulceration -69-year-old male with diabetes admitted with mild DKA, acute kidney injury, and severe sepsis likely secondary to deep soft tissue infection. Status post urgent debridement on 04/27/19 He currently remains intubated -patient was initially on Vancomycin with Zosyn but cultures returning as MSSA so need for MRSA coverage and vanocomycin can be stopped on 04/28/19 -04/29/19: discussed with Infectious Disease Dr. Pineda who recommends to continue Zosyn for now -a simeon issue at this time is source control of infection, patient's buttock debridement area is very large in size and wound vac is unable to be placed at this time. Patient may get a concurrent anaerobic bacteremia from defecation -will need surgery to evaluate if any need or if patient has stability to be able to get diversion of the gastrointestinal tract if wound healing is not sufficient for wound vac placement -continue Zosyn IV antibiotics -appreciate ICU management of mechanical ventilator and sedation while intubated and their assessments on when patient can be weaned off mechanical ventilation (2) Lactic acidosis: -admission lactic acid 6.6 -lactic acidosis has resolved (3) Decubitus ulcer: -Present on admission of necrosis of right buttock ulceration -Operation Date: 04/26/19: s/p Debridement necrotic right buttock ulceration; drainage of perirectal abscess; incision of thrombosed hemorrhoid -since debridement patient remains intubated while in the ICU to await the further improvements of patient's metabolic processes before extubation -a simeon issue at this time is source control of infection, patient's buttock debridement area is very large in size and wound vac is unable to be placed at this time. Patient may get a concurrent anaerobic bacteremia from defecation -will need surgery to evaluate if any need or if patient has stability to be able to get diversion of the gastrointestinal tract if wound healing is not sufficient for wound vac placement -continue Zosyn IV antibiotics (4) Atrial fibrillation with RVR: -secondary to sepsis and metabolic derangements -is off IV esmolol but continues to have atrial fibrillation with rapid ventricular response -is now on oral metoprolol through NG tube -cardiology service has been continuing digoxin -on IV heparin (5) Elevated troponin: -elevated troponins from demand ischemia due to to sepsis and atrial fibrillation with rapid ventricular response -on IV heparin (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 (7) Pacemaker: -Pacemaker in place and functioning appropriately as per cardiology evaluation (8) Chronic diastolic CHF (congestive heart failure): History of Non ischemic Cardiomyopathy in the past -Echo 11/2018: Mildly reduced EF, grade 1 diastolic dysfunction -IV Lasix was started on 04/29/19 as patient had multiple IV medications given during ICU stay to date and to help with outputs -IV Lasix is continued on 04/30/19 -as of 05/01/19, patient appears to have diuresed well. will defer to ICU physician on Lasix course as medical conditions are attempted to be optimized for extubation (9) Acute kidney injury superimposed on CKD: -peak creatinine during hospital stay of 2.99 by 04/27/19 -currently the creatine is 1.25 as of 04/30/19 and shows resolution of acute kidney injury -creatinine is 1/26 on 05/01/19 despite recent IV Lasix (10) CKD (chronic kidney disease) stage 3, GFR 30-59 ml/min: -Baseline creatinine should be around 1.3 Rhabdomyolysis -creatinine kinase peaked above 3000 on 04/28/19 likely from continued muscle breakdown products and recent buttock ulcer debridement -current level of creatinine kinase on 04/30/19 is 1055 which shows resolving rhabdomyolysis Hypomagnesemia Hypokalemia -patient has received oral magnesium supplements via NG tube and on ICU repletion protocol -attempt to target serum potassium level between 3.5 to 4. 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 The liver is enlarged and echogenic. Pancreas is obscured by overlying bowel gas. Caliber of the common bile duct is at the upper limits of normal following cholecystectomy, measuring 7 mm. There is a small fluid-filled structure within the cholecystectomy bed which may reflect a small gallbladder remnant. There is no right hydronephrosis -AST above 200 -monitor liver function enzymes (12) Hypothyroidism: -levothyroxine has been resumed by ICU physician (13) COPD, moderate: -is intubated (14) SALAS (obstructive sleep apnea): -is intubated (15) History of pulmonary embolism: -History of pulmonary embolism in the past continue home dose gabapentin, buproprion, duloxetine via NG tube (16) DVT prophylaxis: -On IV heparin daughter Bing [phone] daughter Tatyana sister Enrike [phone] Subjective Patient remains intubated and on CPAP mode. Patient has IV medications of IV heparin, IV insulin, and IV propofol. Patient generally sleeping. Pupils are equal and reactive to light. Patient does not have psychomotor agitation Physical Exam Constitutional: + obese Eyes: PERRL, conjunctivae normal, anicteric sclerae ENMT: external ear and nose normal, oropharynx normal Neck: normal visual inspection Cardiovascular: Rate/Rhythm: regular rate (heart rate around 100) Gastrointestinal (Abdomen): normal bowel sounds, soft, nontender, no hepatosplenomegaly Neurologic: PERRL, EOMI, accommodation nl, no face palsy, no dysarthria Genitourinary: + penis abnormality (bagley) Results & Data Vital Signs (Past 12 Hours) Vital Signs Temp Pulse Pulse Resp BP Pulse Ox 05/01/19 05:00 37.8 C H 100 H 25 H 94 05/01/19 04:01 89 25 H 96 05/01/19 04:00 37.9 C H 101 H 31 H 114/63 91 05/01/19 03:00 37.9 C H 112 H 31 H 103/66 92 05/01/19 02:00 38.0 C H 108 H 25 H 121/58 L 96 05/01/19 01:00 37.9 C H 104 H 25 H 119/47 L 96 05/01/19 00:00 38.1 C H 117 H 25 H 123/56 L 95 04/30/19 23:36 105 H 25 H 95 04/30/19 23:00 38.2 C H 108 H 25 H 102/73 95 04/30/19 22:00 38.5 C H 119 H 25 H 115/57 L 95 (1) Diabetes mellitus, type 2 Diabetes mellitus truck terminal manager insulin use: with truck terminal manager use Diabetes mellitus complication status: with kidney complications Diabetes mellitus complication detail: with chronic kidney disease Chronic kidney disease stage: stage 3 (moderate) Qualified Code(s): E11.22 - Type 2 diabetes mellitus with diabetic chronic kidney disease; N18.3 - Chronic kidney disease, stage 3 (moderate); Z79.4 - long term care social worker (current) use of insulin (2) Hypothyroidism Hypothyroidism type: unspecified Qualified Code(s): E03.9 - Hypothyroidism, unspecified
[2019-05-01] MEDS ORDERED: POLYETHYLENE (MIRALAX) 17 GM PACK PO PRN (08:32)
--- NOTE | 2019-05-01 08:32 | Critical Care Progress Note ---
Date of Service May 01, 2019 Assessment & Plan (1) Admitted to intensive care unit: Reason Critically Ill: 69-year-old male with diabetes and morbid obesity admitted with mild DKA, acute kidney injury, and severe sepsis 2/2 deep soft tissue infection s/p debridement 04/26. He is currently ventilated and on pressors, weaning off 24-hour events: Good response to diuresis with almost 2 L negative. Currently on SBT NEURO Sedation with propofol Intermittent agitation: Restarted the patient's Wellbutrin, Celexa, and Neurontin. Will consider Zyprexa if agitation persist CV Afib w/ RVR- likely 2/2 DKA, dehydration, sepsis, significant acute renal failure, respiratory distress Continue Dig. Continue PO Metoprolol 50 mg q6h - as needed IV 5 mg pushes Anticoagulated on Coumadin, INR 1.3; started on IV heparin bridge 2/2 high VICKY S2VASc and history of PE. If deemed no further surgeries necessary, can restart warfarin and follow INR closely Reasonable to keep HR <120 Appreciate Cardiology recommendations Low plts- HIT testing pending. Platelet counts improved today Elevated Trop- likely 2/2 rhabdomyolysis and acute renal failure ECHO reviewed HLD, HTN, CAD- Cont home Aspirin, holding statin CHF- ECHO November 2018: Mildly reduced EF, grade 1 diastolic dysfunction. As below, holding home diuretics due to ALMA ROSA PULM CXR-improving vascular congestion On Mech Vent currently. On home O2 at baseline Continue SBT today. If does well will extubate. Will likely need noninvasive positive pressure ventilation once extubated Continue Lasix with goal net negative 1-2L next 24 hours as tolerated by renal function COPD- stable SALAS-we will likely need to extubate to BiPAP ABD/GI Elevated LFT's, improving- likely 2/2 hypoperfusion, sepsis Liver U/S- Fatty infiltration of the liver and hepatomegaly Tube feeds at goal. Will need to be stopped prior to extubation. Will need swa llow evaluation prior to initiation of oral intake /RENAL CKD III, GFR 30-59 ml/min ALMA ROSA- Baseline creatinine ~1.3. At baseline now. ARF suspected hypoperfusion, ATN Diuretics as noted and follow kidney function ENDO DM2- Elevated BSG 2/2 insulin pump being disconnected overnight. BSG 521 on admit Normal pH and bicarb, elevated AG 16 and b-hydroxybutyric acid 15 (normalized now) ICU Hyperglycemic protocol- insulin gtt right now A1C 9.5 Hypothyroidism- Cont levothyroxine ID Concern for Sepsis-Lactic acid 6.6, WBC 15 K, tachycardic; afebrile, BP low- normal on admit. Serum procalcitonin elevated. Etiology likely 2/2 perirectal abscess. Doubt aspiration PNA vs biliary (h/o cholecystectomy) 04/26 debridement necrotic R buttock ulceration; drainage of perirectal abscess; incision of thrombosed hemorrhoid. No wound vac 2/2 proximity to rectum CXR- No evidence of focal pulmonary consolidation Elevated LFT- Liver U/S- reviewed as above Cont IV Zosyn. DC'd Vanc Wound cx- Staph Aureus . Urine cultures- pending. Blood cx- Staph Aureus LA WNL now Repeat blood cx negative to date Appreciate ID consult- suggest change to Rocephin 2g IV Q24h 4-6 weeks when able to de-escalte Remains febrile but WBC normal. HEME Stable H/H. No concern for acute bleeding Trend Daily CBC's LINES: PIVx3, L IJ CVC, A-line DVT Prophylaxis: Heparin FULL CODE DISPO: ICU Review of Systems Review of Systems: Unobtainable due to endotracheal tube Physical Exam Constitutional: + morbidly obese Eyes: PERRL, conjunctivae normal, anicteric sclerae ENMT: Orotracheal and orogastric tubes in place Neck: trachea midline, no thyromegaly Respiratory: Coarse breath sounds bilaterally without wheezing. Few basilar crackles Cardiovascular: Rate/Rhythm: + irregularly irregular Heart Sounds: normal S1 and normal S2; no murmur Gastrointestinal (Abdomen): normal bowel sounds, soft, nontender, no hepatosplenomegaly Obese, limits sensitivity of exam Skin: no rashes, warm and dry Neurologic: Sedated Results & Data Vital Signs (Past 12 Hours) Vital Signs Temp Pulse Pulse Resp BP Pulse Ox 05/01/19 05:00 37.8 C H 100 H 25 H 94 05/01/19 04:01 89 25 H 96 05/01/19 04:00 37.9 C H 101 H 31 H 114/63 91 05/01/19 03:00 37.9 C H 112 H 31 H 103/66 92 05/01/19 02:00 38.0 C H 108 H 25 H 121/58 L 96 05/01/19 01:00 37.9 C H 104 H 25 H 119/47 L 96 05/01/19 00:00 38.1 C H 117 H 25 H 123/56 L 95 04/30/19 23:36 105 H 25 H 95 04/30/19 23:00 38.2 C H 108 H 25 H 102/73 95 04/30/19 22:00 38.5 C H 119 H 25 H 115/57 L 95 Laboratory Results 05/01/19 04:09 05/01/19 04:09 Microbiology 04/29/19 04:23 Blood Aerobic Blood Culture - Preliminary No growth in Aerobic bottle after 48 hours. 04/29/19 04:23 Blood Anaerobic Blood Culture - Preliminary No growth in Anaerobic bottle after 48 hours. 04/29/19 04:23 Blood Aerobic Blood Culture - Preliminary No growth in Aerobic bottle after 48 hours. 04/29/19 04:23 Blood Anaerobic Blood Culture - Preliminary No growth in Anaerobic bottle after 48 hours. 04/26/19 18:48 Sacrum Gram Stain - Final 04/26/19 18:48 Sacrum Aerobic and Anaerobic Culture - Preliminary Staphylococcus aureus 04/26/19 10:57 Blood Aerobic Blood Culture - Final Staphylococcus aureus 04/26/19 10:57 Blood Anaerobic Blood Culture - Final Staphylococcus aureus 04/26/19 10:26 Blood Aerobic Blood Culture - Final Staphylococcus aureus 04/26/19 10:26 Blood Anaerobic Blood Culture - Final Staphylococcus aureus 04/26/19 11:50 Urine,Clean Catch Urine Culture - Final Three types of organisms present, all high counts. Repeat collection recommended. No further identifications or sensitivities to follow. Diagnostic Findings Chest x-ray independently reviewed. Tubes and lines appropriately placed. Persistent cardiomegaly with some left lower lobe atelectasis noted. Pulmonary vascular congestion appears improved. Coding Level of Care Code 13217 Subseq Hosp Care Lvl 3 Diagnoses Admitted to intensive care unit Z78.9 Time Spent (min) 40
[2019-05-01] MEDS: DULOXETINE HCL 60 MG CAP PO SCH (08:45)
[2019-05-01] MEDS: ICU ELECTROLYTE REPLACEMENT PROTOCOL SCH (08:45)
[2019-05-01] MEDS: FAMOTIDINE 20 MG TAB OG SCH ×2 (08:48→20:10)
[2019-05-01] MEDS: buPROPion HCl 75 MG TABLET NG SCH ×2 (08:49→20:10)
[2019-05-01] MEDS: GABAPENTIN 250 MG/5 ML 470 ML BTL NG SCH ×3 (08:49→20:10)
[2019-05-01] MEDS: DOCUSATE SODIUM/SENNA 50/8.6MG TAB PO SCH (09:03)
[2019-05-01] MEDS: LACTULOSE SYRUP 20 GM/30 ML UDC PO SCH (09:04)
[2019-05-01] MEDS: MAGNESIUM SULFATE / D5W 1 GM/100 ML BAG IV SCH ×2 (11:12→12:07)
[2019-05-01 12:20] LABS: Plt Ab, Heparin Induced Weak Positive (Negative)
--- NOTE | 2019-05-01 12:33 | Cardiology Progress Note ---
Date of Service May 01, 2019 Assessment & Plan (1) Atrial fibrillation with RVR: Patient with ongoing mild fever. Continue rate control with metoprolol tartrate 50 mg delivered via orogastric tube every 6 hours. The patient is extubated and on BiPAP,Will need to determine how he is going to do with oral medications. Hopefully he will be able to tolerate the oral metoprolol. For now I will transition the digoxin back to IV. His potassium is being replaced via the electrolyte protocol, and repeat chemistry panel is planned to be performed in about an hour. (2) Pulmonary vascular congestion: 5.9 L of urine output noted up until 659 this morning over the last 24 hours, for net negative balance of 1.8 L. Renal function is stable, continue furosemide 40 mg IV every 8 hours. As noted above, replace electrolytes via electrolyte protocol. Continue antibiotics for MSSA bacteremia / MSSA buttock/perirectal wound. Subjective Patient is now on BiPAP. Patient now on BiPAP. Chief complaint: Follow-up atrial fibrillation, follow-up pulmonary edema Subjective: Patient had been successfully extubated this morning at 930. Ongoing atrial fibrillation noted on telemetry in the range of 110 to 120 bpm, which is stable, mildly improved. Review of Systems Review of Systems: Unable to perform complaints review of systems as patient is on BiPAP. Physical Exam Physical Exam: Temp Pulse Resp BP Pulse Ox 37.8 C H 120 H 30 H 133/47 L 95 05/01/19 05:00 05/01/19 11:42 05/01/19 11:42 05/01/19 11:01 05/01/19 11:42 Constitutional: WD/WN, vitals as above Respiratory: Decreased breath sounds at the bases Cardiovascular: Rate/Rhythm: + irregularly irregular Heart Sounds: no murmur Extremities: no edema Results & Data Vital Signs (Past 12 Hours) Vital Signs Temp Pulse Pulse Resp BP BP Pulse Ox 05/01/19 11:42 120 H 30 H 95 05/01/19 11:01 134 H 16 133/47 L 96 05/01/19 10:01 115 H 25 H 152/38 H 96 05/01/19 09:20 95 H 32 H 96 05/01/19 09:01 114 H 138/91 95 05/01/19 08:15 100 H 20 96 05/01/19 08:00 123 H 133/60 98 05/01/19 07:00 106 H 125/58 L 97 05/01/19 06:55 96 H 26 H 96 05/01/19 05:00 37.8 C H 100 H 25 H 94 05/01/19 04:01 89 25 H 96 05/01/19 04:00 37.9 C H 101 H 31 H 114/63 91 05/01/19 03:00 37.9 C H 112 H 31 H 103/66 92 05/01/19 02:00 38.0 C H 108 H 25 H 121/58 L 96 05/01/19 01:00 37.9 C H 104 H 25 H 119/47 L 96 Laboratory Results Cardiac Enzymes 05/01/19 Range/Units 04:09 AST 126 H (15-37) U/L Coagulation 04/30/19 04/30/19 05/01/19 Range/Units 13:15 19:53 04:09 APTT 37.9 H 51.7 H* 45.0 H (21.0-31.0) Seconds CBC 05/01/19 Range/Units 04:09 WBC 9.32 (4.8-10.8) K/uL RBC 3.90 L (4.7-6.1) M/uL Hgb 11.6 L (14.0-18.0) g/dL Hct 36.0 L (42-52) % Plt Count 116 L (130-400) K/uL Neut # (Auto) 6.11 (1.4-6.5) K/uL Lymph # (Auto) 1.48 (1.2-3.4) K/uL Hernando # (Auto) 1.00 H (0.11-0.59) K/uL Eos # (Auto) 0.17 (0-0.5) K/uL Baso # (Auto) 0.03 (0-0.2) K/uL Comprehensive Metabolic Panel 05/01/19 Range/Units 04:09 Sodium 134 L (136-145) mmol/L Potassium 3.3 L (3.5-5.1) mmol/L Chloride 101 (98-107) mmol/L Carbon Dioxide 26 (21-32) mmol/L BUN 26 H (7-18) mg/dl Creatinine 1.26 (0.6-1.4) mg/dl Glucose 178 H (70-99) mg/dl Calcium 8.5 (8.5-10.1) mg/dl AST 126 H (15-37) U/L ALT 57 (12-78) U/L Alkaline Phosphatase 130 H (45-117) U/L Total Protein 6.1 L (6.4-8.2) gm/dl Albumin 1.9 L (3.4-5.0) gm/dl Intake and Output 04/30/19 05/01/19 05/01/19 22:59 06:59 14:59 Intake Total 1856.975 / 4117.978 1610.793 / 4117.978 484.932 / 484.932 Output Total 3700 / 5950 1650 / 5950 1050 / 1050 Balance -1843.025 / -1832.022 -39.207 / -1832.022 -565.068 / -565.068 Intake: IV 592.975 / 2043.978 800.793 / 2043.978 184.932 / 184.932 HEPARIN SODIUM/DEXTROSE 25,000 181.55 / 1059.20 425.4 / 1059.20 units In 500 ml @ 2,000 UNITS/ HR 40 mls/hr IV .[id number] [facility] Rx #:[id number] NovoLIN R 250 UNITS In Nss 247. 71.425 / 244.800 58.542 / 244.800 47.084 / 47.084 5 ml @ 15.6 UNITS/HR 15.6 mls/ hr IV .Q16H2M OFE Rx#:[id number] MAGNESIUM SULFATE / D5W 1 gm In 100 / 100 100 ml @ 100 mls/hr IV Q1H OFE Rx#:[id number] Zosyn 4.5 gm In D5 100 ml @ 30 240 / 360 120 / 360 mls/hr IV Q8H OFE Rx#:[id number] DIPRIVAN 1,000 mg In 100 ml @ 0 100.000 / 379.978 196.851 / 379.978 37.848 / 37.848 MCG/KG/MIN IV .Q0M PRN Rx#: [id number] Oral 0 / 0 0 / 0 Tube Feeding 150 / 600 450 / 600 150 / 150 Tube Irrigant 814 / 1174 360 / 1174 150 / 150 Other 300 / 300 Output: Urine Amount (Catheter) 3700 / 5950 1650 / 5950 1050 / 1050 Valentine/Indwelling 3700 / 5950 1650 / 5950 1050 / 1050
[2019-05-01 13:56] LABS: Partial Thromboplastin Ratio 1.6; Partial Thromboplastin Time 43.5 Seconds (21.0-31.0)
[2019-05-01 14:04] LABS: BUN Creatinine Ratio 21.9 (10-20); Calcium 8.9 mg/dl (8.5-10.1); Est GFR (Non-African American) 58.6; Magnesium 2.1 mg/dl (1.8-2.4); Potassium 3.7 mmol/L (3.5-5.1)
[2019-05-01] MEDS: DIGOXIN 125 MCG in SYRINGE 9.5 ML IV SCH (15:12)
[2019-05-01] MEDS: POTASSIUM CHLORIDE / WTR 20 MEQ/100 ML PLCT IV SCH ×2 (16:28→18:10)
[2019-05-01 21:24] LABS: Partial Thromboplastin Time 54.3 Seconds (21.0-31.0)
[2019-05-01] MEDS ORDERED: PHARMACY GLYCEMIC MGMT CONSULT PRN (23:19)
[2019-05-02] MEDS: INSULIN ASPART 100 UNITS/ML 3 ML PEN SC SCH ×5 (00:15→21:40)
[2019-05-02] MEDS: PIPERACILLIN/TAZOBACTAM 4.5 GM in DEXTROSE 5% 100 ML IV SCH ×2 (02:08→09:11)
[2019-05-02] MEDS ORDERED: METOPROLOL TARTRATE 1 MG/ML VIAL IV STA (04:19)
[2019-05-02] MEDS ORDERED: METOPROLOL TARTRATE 1 MG/ML VIAL IV ONE (04:28)
[2019-05-02 05:07] LABS: Albumin Level 2.1 gm/dl (3.4-5.0); BUN Creatinine Ratio 21.2 (10-20); Bilirubin Direct 0.7 mg/dl (0-0.2); Calcium 8.7 mg/dl (8.5-10.1); Creatinine Clr Calc Pharmacy 83.1 ml/min; Est GFR (African American) 64.2; Est GFR (Non-African American) 55.4; Magnesium 1.6 mg/dl (1.8-2.4); Potassium 3.8 mmol/L (3.5-5.1)
[2019-05-02] MEDS: FEEDING WATER FLUSH NG SCH ×2 (05:09→07:38)
[2019-05-02 05:10] LABS: Albumin Globulin Ratio 0.5 (0.9-2); Bilirubin,Total 1.4 mg/dl (0.2-1); Globulin 4.5 gm/dl (2.5-4.0); Phosphorus 2.4 mg/dl (2.5-4.9); Total Protein 6.6 gm/dl (6.4-8.2)
[2019-05-02] MEDS: LEVOTHYROXINE SODIUM 50 MCG TABLET NG SCH (05:11)
[2019-05-02] MEDS: LEVOTHYROXINE SODIUM 200 MCG TABLET NG SCH (05:11)
[2019-05-02] MEDS: METOPROLOL TARTRATE 50 MG TAB NG SCH (05:11)
[2019-05-02] MEDS: DEXTROSE 5% IV SCH (05:12)
[2019-05-02] MEDS: PHENYLEPHRINE HCL IV SCH (05:12)
[2019-05-02] MEDS: HEPARIN SODIUM/DEXTROSE 25,000 UNITS/500 ML BAG IV SCH ×3 (05:12→15:50)
[2019-05-02 05:20] LABS: iSTAT Allen Test Pass; iSTAT Art Bld Gas pCO2 Correct 46 mmHg (35-46); iSTAT Art Bld Gas pH Corrected 7.384 (7.35-7.45); iSTAT Arterial Blood Gas HCO3 27 meg/L (19-24); iSTAT Arterial Blood Gas pCO2 41 mmHg (35-46); iSTAT Arterial Blood Gas pH 7.42 (7.35-7.45); iSTAT Arterial Blood Gas pO2 68 mmHg (80-95); iSTAT Arterial Blood Gas pO2 C 79; iSTAT Carbon Dioxide 28 mEq/l (24-31); iSTAT Site L Radial
[2019-05-02] MEDS ORDERED: MAGNESIUM SULFATE / D5W 1 GM/100 ML BAG IV ONE (05:22)
[2019-05-02] MEDS ORDERED: POTASSIUM PHOS 3 MMOL/1 ML INFUSION IV STA ×2 (05:22→07:58)
[2019-05-02] MEDS: FUROSEMIDE 40 MG in SYRINGE 0 ML IV SCH ×3 (05:42→20:57)
[2019-05-02] MEDS ORDERED: POTASSIUM PHOSPHATE 15 MMOL in SODIUM CHLORIDE 0.9% 250 ML IV ONE ×2 (05:45→08:45)
--- NOTE | 2019-05-02 06:55 | Procedure Note ---
Procedure Note Date of Service May 02, 2019 Procedure: [facility] Indwelling Peripherally Inserted IV Catheter Placement Attending: Dr. Edouard APC: Rell Pierre PA-C Indication: Need for IV Access, Poor Vascular Access Anesthesia: None Verbal consent was obtained from patient prior to performing the procedure. A time-out was completed verifying correct patient, procedure, site, positioning, and implant(s) or special equipment if applicable. Utilizing bedside ultrasound, vascularity of the LEFT upper extremity was assessed. Vessel size was noted for appropriate catheter selection and skin was marked with gentle pressure. Patients LEFT upper extremity was prepped and draped in the usual sterile fashion utilizing chlorhexidine. Ultrasound guidance was used to aid needle placement. An 18 g Endurance Catheter was introduced into the LEFT Cephalic vein under direct ultrasound guidance. Guide wire was easily deployed without resistance. Catheter was threaded over the guide wire without resistance and the entire apparatus was removed intact. Good venous blood return was noted in the catheter. The IV catheter was easily flushed with sterile saline flush. Sterile clave was attached to the end of the catheter and good blood return was again noted. Tourniquet was released. StatLock device and sterile dressing were applied. The patient tolerated the procedure well. Blood Loss: Minimal Complications: None Procedural Ultrasound Guidance: Procedure Date: 05/02/2019 Indication: Poor Vascular Access Attending: Dr. Edouard APC: Rell Pierre PA-C Artery/Veins Identified: YES Access confirmed in Vein with ultrasound: YES Complications: NONE Patient tolerated procedure: WELL Coding
--- NOTE | 2019-05-02 07:10 | XRay Report ---
XR chest 1V portable CLINICAL HISTORY: f/u dyspnea COMPARISON STUDY: 05/01/2018 FINDINGS: Interval extubation. Mild increase in pulmonary prominence compared to the prior study. Khadijah phragms are smooth. Slight blunting of the lateral costophrenic angles bilaterally. Permanent bipolar cardiac pacemaker. IMPRESSION: 1. Interval extubation. 2. Slightly progressive components of pulmonary edema. The above report was generated using voice recognition software. It may contain grammatical, syntax or spelling errors. Electronically signed by: Jcarlos Petersen M.D. 05/02/2019 7:07 AM
[2019-05-02 07:27] LABS: Partial Thromboplastin Ratio 1.7
[2019-05-02 07:33] LABS: Partial Thromboplastin Time 47.3 Seconds (21.0-31.0)
[2019-05-02] MEDS ORDERED: Nursing to Pharmacy Communication ONE (08:27)
[2019-05-02] MEDS: METOPROLOL TARTRATE 50 MG TAB PO SCH ×3 (08:41→20:58)
[2019-05-02] MEDS: DOCUSATE SODIUM/SENNA 50/8.6MG TAB PO SCH (08:42)
[2019-05-02] MEDS: FAMOTIDINE 20 MG TAB PO SCH ×2 (08:42→20:56)
[2019-05-02] MEDS: buPROPion HCl 75 MG TABLET NG SCH ×2 (08:42→20:56)
[2019-05-02] MEDS: LACTULOSE SYRUP 20 GM/30 ML UDC PO SCH (08:43)
--- NOTE | 2019-05-02 09:05 | Critical Care Progress Note ---
Date of Service May 02, 2019 Assessment & Plan (1) Admitted to intensive care unit: Reason Critically Ill: 69yo male with PMHx significant for diabetes, morbid obesity admitted with mild DKA, ALMA ROSA, and severe sepsis 2/2 stage 4 buttock wound s/p debridement 04/26. NEURO -currently extubated; speech/swallow consult placed Wellbutrin, Celexa, and Neurontin restarted for intermittent agitation. Can consider Zyprexa addition if worsening. CV Afib w/ RVR- likely 2/2 DKA, dehydration, sepsis, significant acute renal failure (since resolved), respiratory distress Continue Dig, Metoprolol 75 mg q6h Anticoagulated on Coumadin at home, INR 1.3 On IV heparin currently as will likely require further surgery in the near future Goal HR <120 Appreciate Cardiology recs Thrombocytopenia Pt with downtrend while on heparin; has since uptrended Likely decreased due to septic picture, but HIT testing was ordered. 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 Can consider a serotonin assay. Cont to trend HLD, HTN, CAD- Cont home Aspirin, holding statin CHF- ECHO November 2018: Mildly reduced EF, grade 1 diastolic dysfunction. As below, holding home diuretics due to ALMA ROSA PULM CXR- Mild pulmonary vascular congestion. Repeat showed interval development of pulmonary edema On home O2 at baseline at night Continue IV Lasix 40 mg COPD- stable SALAS- CPAP HS when able ABD/GI Elevated LFT's, improving- likely 2/2 hypoperfusion, sepsis Liver U/S- Fatty infiltration of the liver and hepatomegaly No tube feeds- swallow study ordered, now extubated /RENAL CKD III, GFR 30-59 ml/min ALMA ROSA- Baseline creatinine ~1.3. At baseline now. ARF suspected hypoperfusion, ATN IV Lasix 40 mg ENDO DM2- Elevated BSG 2/2 insulin pump being disconnected overnight. BSG 521 on admit Normal pH and bicarb, elevated AG 16 and b-hydroxybutyric acid 15 (normalized now) ICU Hyperglycemic protocol- insulin gtt right now Will watch volume status 2/2 pulmonary edema and h/o CHF A1C 9.5 Hypothyroidism- Cont levothyroxine ID Originally concern for Sepsis-Lactic acid 6.6, WBC 15 K, tachycardic; afebrile, BP low-normal on admit. Serum procalcitonin improved Etiology likely 2/2 perirectal abscess. 04/26 debridement necrotic R buttock ulceration; drainage of perirectal abscess; incision of thrombosed hemorrhoid. No wound vac 2/2 proximity to rectum CXR- No evidence of focal pulmonary consolidation Elevated LFT- Liver U/S- reviewed as above Cont IV Zosyn. Wound cx- Staph Aureus . Urine cultures-unremarkable. Blood cx- Staph Aureus Repeat blood cx 04/29- NGTD Appreciate ID consult- switched to rocephin 05/02 HEME Stable H/H. No concern for acute bleeding Trend Daily CBC's LINES: PIVx3, L IJ CVC, A-line DVT Prophylaxis: Heparin FULL CODE DISPO: ICU Supervising Physician Co-Signing Physician Notes Dr. Rae was the resident-physician during care of patient. I separately evaluated patient for simeon portions of the history and the exam. I was present during the critical portion of medical decision making, and I discussed the case with the resident. I generally agree with the findings and plan except for any additions/exceptions noted. Patient continues to be in atrial fibrillation with rapid ventricular response. Continue metoprolol. Continue digoxin per cardiology. We have de-escalate his Zosyn to ceftriaxone. His procalcitonin continues to improve. We will follow- up with surgery regarding the recommendations for his perirectal abscess. He is at risk for fistulization and worsening ulcer formation given the location of the wound. His ALMA ROSA appears to be improving. Use BiPAP as needed for his hypoxic respiratory failure. Continue diuresis with 40 mg 3 times daily of IV Lasix. He continues to demonstrate pulmonary edema on his chest x-ray. He is still over 8 L positive since admission. Continue heparin drip for his history of atrial fibrillation. He is recent echocardiogram was very poor study. He will need a repeat echo once his heart rates come down. He does have an MSSA bacteremia and there is evidence of culture clearing on repeat blood cultures. He is at increased risk for vegetations given his pacemaker. I have personally spent 40 minutes of critical care time in the direct management of this patient. This is a life/limb threatening event. This includes time spent evaluating patient, direct bedside care, chart review, placing orders, interpretation of diagnostic studies, discussion with consultants, patient, and/or family members regarding treatment decisions, as well as other required patient management activities. This time is exclusive of all separately billable procedures, and teaching time and separate from and in addition to any other critical care service time. Subjective Mr. Ceja was recently extubated, on mask. States he would like to go home. Denies any problems today; states he has no headache, blurry vision, SOB (despite being on mask), chest pain, N/V, abd pain, diarrhea or constipation. Review of Systems Review of Systems: All systems reviewed & are unremarkable except as noted in HPI & below Physical Exam Physical Exam: General: Alert, oriented. Mask on face. Skin: Stage 4 ulcer on right buttock. Psych: Mood/Affect somewhat blunted Neuro: decreased stregnth in upper and lower extremities; unable to sit up on his own HEENT: NC/AT Chest: Nontender to palpation. CV: Irregular rate and rhythm. No murmurs appreciated Resp: Breath sounds with some crackles bilaterally. Abdomen: Soft, nontender. No guarding. Extremities: + edema in lower extremities bilaterally. Results & Data Vital Signs (Past 12 Hours) Vital Signs Temp Pulse Pulse Resp BP BP Pulse Ox 05/02/19 08:00 124 H 16 102/67 96 05/02/19 07:37 121 H 20 99 05/02/19 07:00 130 H 37 H 96/65 L 96 05/02/19 06:00 37.1 C 110 H 34 H 112/63 95 05/02/19 05:10 123 H 119/54 L 05/02/19 05:09 104 H 119/54 L 05/02/19 05:00 107 H 30 H 123/54 L 90 05/02/19 03:00 131 H 16 111/64 95 05/02/19 02:00 119 H 20 125/63 90 05/02/19 01:00 37.6 C H 118 H 36 H 119/66 94 05/02/19 00:00 37.6 C H 108 H 34 H 130/60 97 05/01/19 23:00 37.6 C H 91 H 22 101/60 95 05/01/19 22:00 37.6 C H 125 H 26 H 121/58 L 95 05/01/19 21:00 37.6 C H 102 H 36 H 117/55 L 92 Laboratory Results Laboratory Results - last 24 hr 10/20/19 10/20/19 10/20/19 13:30 13:30 14:35 APTT 43.5 H PTT Ratio 1.6 Sample Site POC pH POC pCO2 POC pO2 POC HCO3 POC Total CO2 POC Base Excess ABG pH (Temp Correct) ABG pCO2 (Temp Corrct POC ABG pO2 at Pt Temp POC ABG O2 Sat Sam Test O2 Delivery Device Sodium 137 Potassium 3.7 Chloride 100 Carbon Dioxide 28 Anion Gap 8.0 BUN 28 H Creatinine 1.26 Est Cr Clr Drug Dosing 87.0 Est GFR ( Amer) 68.0 Est GFR (Non-Af Amer) 58.6 BUN/Creatinine Ratio 21.9 H Glucose 164 H POC Glucose 156 H Calcium 8.9 Phosphorus Magnesium 2.1 Total Bilirubin Direct Bilirubin AST ALT Alkaline Phosphatase Total Protein Albumin Globulin Albumin/Globulin Ratio Procalcitonin 05/01/19 05/01/19 05/01/19 16:35 16:54 17:13 APTT PTT Ratio Sample Site POC pH POC pCO2 POC pO2 POC HCO3 POC Total CO2 POC Base Excess ABG pH (Temp Correct) ABG pCO2 (Temp Corrct POC ABG pO2 at Pt Temp POC ABG O2 Sat Sam Test O2 Delivery Device Sodium Potassium Chloride Carbon Dioxide Anion Gap BUN Creatinine Est Cr Clr Drug Dosing Est GFR ( Amer) Est GFR (Non-Af Amer) BUN/Creatinine Ratio Glucose POC Glucose 106 H 106 H 125 H Calcium Phosphorus Magnesium Total Bilirubin Direct Bilirubin AST ALT Alkaline Phosphatase Total Protein Albumin Globulin Albumin/Globulin Ratio Procalcitonin 05/01/19 05/01/19 05/01/19 18:12 20:13 20:47 APTT 54.3 H* PTT Ratio 2.0 Sample Site POC pH POC pCO2 POC pO2 POC HCO3 POC Total CO2 POC Base Excess ABG pH (Temp Correct) ABG pCO2 (Temp Corrct POC ABG pO2 at Pt Temp POC ABG O2 Sat Sam Test O2 Delivery Device Sodium Potassium Chloride Carbon Dioxide Anion Gap BUN Creatinine Est Cr Clr Drug Dosing Est GFR ( Amer) Est GFR (Non-Af Amer) BUN/Creatinine Ratio Glucose POC Glucose 121 H 105 H Calcium Phosphorus Magnesium Total Bilirubin Direct Bilirubin AST ALT Alkaline Phosphatase Total Protein Albumin Globulin Albumin/Globulin Ratio Procalcitonin 05/01/19 05/01/19 05/02/19 21:13 22:02 00:13 APTT PTT Ratio Sample Site POC pH POC pCO2 POC pO2 POC HCO3 POC Total CO2 POC Base Excess ABG pH (Temp Correct) ABG pCO2 (Temp Corrct POC ABG pO2 at Pt Temp POC ABG O2 Sat Sam Test O2 Delivery Device Sodium Potassium Chloride Carbon Dioxide Anion Gap BUN Creatinine Est Cr Clr Drug Dosing Est GFR ( Amer) Est GFR (Non-Af Amer) BUN/Creatinine Ratio Glucose POC Glucose 129 H 122 H 173 H Calcium Phosphorus Magnesium Total Bilirubin Direct Bilirubin AST ALT Alkaline Phosphatase Total Protein Albumin Globulin Albumin/Globulin Ratio Procalcitonin 05/02/19 05/02/19 05/02/19 04:24 05:07 06:31 APTT 47.3 H* PTT Ratio 1.7 Sample Site L Radial POC pH 7.42 POC pCO2 41 POC pO2 68 L POC HCO3 27 H POC Total CO2 28 POC Base Excess 2.0 H ABG pH (Temp Correct) 7.384 ABG pCO2 (Temp Corrct 46 POC ABG pO2 at Pt Temp 79 POC ABG O2 Sat 94.0 Sam Test Pass O2 Delivery Device Cannula Sodium 136 Potassium 3.8 Chloride 100 Carbon Dioxide 28 Anion Gap 8.0 BUN 28 H Creatinine 1.32 Est Cr Clr Drug Dosing 83.1 Est GFR ( Amer) 64.2 Est GFR (Non-Af Amer) 55.4 BUN/Creatinine Ratio 21.2 H Glucose 222 H POC Glucose Calcium 8.7 Phosphorus 2.4 L Magnesium 1.6 L Total Bilirubin 1.4 H D Direct Bilirubin 0.7 H AST 114 H ALT 55 Alkaline Phosphatase 143 H Total Protein 6.6 Albumin 2.1 L Globulin 4.5 H Albumin/Globulin Ratio 0.5 L Procalcitonin 05/02/19 05/02/19 06:38 11:54 APTT PTT Ratio Sample Site POC pH POC pCO2 POC pO2 POC HCO3 POC Total CO2 POC Base Excess ABG pH (Temp Correct) ABG pCO2 (Temp Corrct POC ABG pO2 at Pt Temp POC ABG O2 Sat Sam Test O2 Delivery Device Sodium Potassium Chloride Carbon Dioxide Anion Gap BUN Creatinine Est Cr Clr Drug Dosing Est GFR ( Amer) Est GFR (Non-Af Amer) BUN/Creatinine Ratio Glucose POC Glucose 281 H Calcium Phosphorus Magnesium Total Bilirubin Direct Bilirubin AST ALT Alkaline Phosphatase Total Protein Albumin Globulin Albumin/Globulin Ratio Procalcitonin 1.06 H Medications Administered Home Medications digoxin 0.125 mg PO QAM #0 07/13/16 [History Confirmed 04/26/19] furosemide 80 mg PO BID #0 07/13/16 [History Confirmed 04/26/19] omeprazole 20 mg PO QAM #0 07/13/16 [History Confirmed 04/26/19] spironolactone 12.5 mg PO QAM #0 07/13/16 [History Confirmed 04/26/19] Humulin R U-500 (Conc) Insulin 1 dose CONTINUOUS SUBCUTANEOUS INFUSION DIRECTED #0 09/22/16 [History Confirmed 04/26/19] colchicine 0.6 mg PO QAM #0 09/22/16 [History Confirmed 04/26/19] levothyroxine 200 mcg PO QAM #0 03/08/17 [History Confirmed 04/26/19] warfarin [Jantoven] 4 mg PO SUTH #0 tab 02/26/18 [History Confirmed 04/26/19] allopurinol 300 mg tablet 300 mg PO QPM 05/11/18 [History Confirmed 04/26/19] aspirin 81 mg tablet,delayed release 81 mg PO QAM 05/11/18 [History Confirmed 04/26/19] atorvastatin 10 mg tablet 10 mg PO QAM 05/11/18 [History Confirmed 04/26/19] metolazone 2.5 mg tablet 2.5 mg PO WK tab 05/11/18 [History Confirmed 04/26/19] gabapentin 100 mg PO TID 06/24/18 [History Confirmed 04/26/19] levothyroxine 50 mcg PO QAM 06/24/18 [History Confirmed 04/26/19] duloxetine 60 mg capsule,delayed release 60 mg PO QAM 08/31/18 [History Confirmed 04/26/19] metoprolol tartrate 150 mg PO QAM 11/10/18 [History Confirmed 04/26/19] bupropion HCl 150 mg PO QAM 12/29/18 [History Confirmed 04/26/19] albuterol sulfate 1 puff INHALATION Q6H PRN 04/26/19 [History Confirmed 04/26/19] cholecalciferol (vitamin D3) 2,000 unit PO DAILY 04/26/19 [History Confirmed 04/26/19] magnesium oxide 400 mg PO DAILY 04/26/19 [History Confirmed 04/26/19] metoprolol tartrate 100 mg PO HS 04/26/19 [History Confirmed 04/26/19] nystatin 1 applic TOPICAL BID PRN 04/26/19 [History Confirmed 04/26/19] sennosides [senna] 8.6 mg PO BID 04/26/19 [History Confirmed 04/26/19] warfarin 8 mg PO [id number] 04/26/19 [History Confirmed 04/26/19] Active Medications Allopurinol (Zyloprim) 300 mg PO QPM [facility] Stop: 05/26/19 20:59 Last Admin: 04/26/19 21:28 Dose: 300 mg Documented by: Aspirin (Aspirin Chew) 81 mg PO QAM [facility] Stop: 05/27/19 08:59 Last Admin: 04/27/19 09:32 Dose: 81 mg Documented by: Atorvastatin Calcium (Lipitor) 10 mg PO QAM [facility] Stop: 05/27/19 08:59 Bupropion HCl (Wellbutrin) 75 mg NG BID [facility] Stop: 05/29/19 10:59 Last Admin: 05/02/19 08:42 Dose: 75 mg Documented by: Dextrose (Dextrose 50%) 25 - 50 ml IV UD PRN; Protocol PRN Reason: Hypoglycemia Protocol Stop: 05/26/19 13:14 Duloxetine HCl (Cymbalta) 60 mg PO QAM [facility] Stop: 05/27/19 08:59 Last Admin: 05/02/19 09:20 Dose: 60 mg Documented by: Famotidine (Pepcid) 20 mg PO BID [facility] Stop: 05/29/19 20:59 Last Admin: 05/02/19 08:42 Dose: 20 mg Documented by: Gabapentin (Neurontin) 100 mg PO TID [facility] Stop: 05/29/19 13:59 Last Admin: 05/02/19 09:08 Dose: 100 mg Documented by: Glucagon (Glucagen) 1 mg IM UD PRN; Protocol PRN Reason: Hypoglycemia Protocol Stop: 05/26/19 13:14 Glucose (Glucose 40%) 15 - 30 gm PO UD PRN; Protocol PRN Reason: Hypoglycemia Protocol Stop: 05/26/19 13:14 Glucose (Dex4 Glucose) 4 - 8 tabs PO UD PRN; Protocol PRN Reason: Hypoglycemia Protocol Stop: 05/26/19 13:14 Insulin Human Regular 250 (units/ Sodium Chloride) 250 mls @ 8 mls/hr IV .Q24H [facility]; Protocol Stop: 05/26/19 12:59 Last Titration: 05/02/19 12:59 Dose: 8 units/hr, 8 mls/hr Documented by: Heparin Sodium/Dextrose (Heparin Sodium/Dextrose) 25,000 units in 500 mls @ 44 mls/hr IV .[id number] [facility]; Protocol Stop: 05/26/19 14:09 Last Titration: 05/02/19 07:38 Dose: 2,200 units/hr, 44 mls/hr Documented by: Piperacillin Sod/Tazobactam (Sod 4.5 gm/ Dextrose) 120 mls @ 30 mls/hr IV Q8H [facility]; Protocol Stop: 05/02/19 14:00 Last Infusion: 05/02/19 13:00 Dose: Infused Documented by: Furosemide 40 mg/ Syringe 4 mls @ 4 mls/min IV Q8H [facility] Stop: 05/30/19 13:59 Last Admin: 05/02/19 05:42 Dose: 4 mls/min Documented by: Digoxin 125 mcg/ Syringe 10 mls @ 2 mls/min IV DAILY@1600 [facility] Stop: 05/31/19 15:59 Last Admin: 05/01/19 15:12 Dose: 2 mls/min Documented by: Ceftriaxone Sodium 2,000 mg/ (Dextrose) 70 mls @ 140 mls/hr IV DAILY@1800 [facility]; Protocol Stop: 05/16/19 17:59 Insulin Aspart (Novolog Flexpen) 0 units SC ACHS [facility] Stop: 06/01/19 11:29 Last Admin: 05/02/19 12:39 Dose: Not Given Documented by: Lactulose (Chronulac) 20 gm PO DAILY [facility] Stop: 05/31/19 08:59 Last Admin: 05/02/19 08:43 Dose: 20 gm Documented by: Levothyroxine Sodium (Synthroid) 200 mcg PO DAILY@0500 [facility] Stop: 05/30/19 04:59 Levothyroxine Sodium (Synthroid) 50 mcg PO DAILY@0500 [facility] Stop: 05/30/19 04:59 Metoprolol Tartrate (Lopressor) 50 mg PO Q6H [facility] Stop: 05/28/19 11:59 Last Admin: 05/02/19 08:41 Dose: 50 mg Documented by: Miscellaneous (Carbohydrates For Hypoglycemia) 15 - 30 gm PO PRN PRN PRN Reason: Hypoglycemia Treatment Stop: 05/26/19 13:14 Miscellaneous (Icu Electrolyte Replacement Protocol) 1 ea N/A QAM [facility] Stop: 05/06/19 09:54 Last Admin: 05/02/19 09:07 Dose: 1 ea Documented by: Miscellaneous Information (Consult Glycemic Management Pharmacy) 1 ea N/A UD PRN PRN Reason: Consult Stop: 05/31/19 23:18 Nystatin (Mycostatin) 1 appln EXT BID PRN PRN Reason: Rash Stop: 05/26/19 14:09 Last Admin: 04/30/19 17:30 Dose: 1 appln Documented by: Oxycodone HCl (Roxicodone) 5 mg PO Q6 PRN PRN Reason: Pain Stop: 05/14/19 11:38 Last Admin: 05/02/19 12:39 Dose: 5 mg Documented by: Polyethylene Glycol (Miralax Powder Packet) 17 gm PO DAILY PRN PRN Reason: Constipation Stop: 05/31/19 08:31 Senna/Docusate Sodium (Senokot S) 1 tab PO [facility] Stop: 05/31/19 08:59 Last Admin: 05/02/19 08:42 Dose: 1 tab Documented by: Vitamin D (Vitamin D3) 2,000 units PO DAILY [facility] Stop: 05/27/19 08:59 Last Admin: 04/27/19 09:33 Dose: 2,000 units Documented by: Warfarin Sodium (Coumadin) 8 mg PO DAILY@1600 [facility] Stop: 05/26/19 15:59 Last Admin: 04/26/19 15:39 Dose: 8 mg Documented by: PG Care Time/CCT Total # of Minutes Spent Total Time Spent with Patient: Total time spent is greater than 50% in coordination of care (as documented) at patient's floor/unit and/or counseling patient: Critical Care Time: Yes Total Critical Care Time: 45 Resident Activity Tracking Resident Involvement: Resident Care Provided Care Provided: Adult Hospital Medicine
[2019-05-02] MEDS: ICU ELECTROLYTE REPLACEMENT PROTOCOL SCH (09:07)
[2019-05-02] MEDS: GABAPENTIN 250 MG/5 ML 470 ML BTL PO SCH ×3 (09:08→20:58)
--- NOTE | 2019-05-02 09:17 | Hospitalist Progress Note ---
Date of Service May 02, 2019 Assessment & Plan (1) Sepsis: sepsis secondary to bacteremia from Staphylococcus aureus likely from necrosis of right buttock ulceration -69-year-old male with diabetes admitted with mild DKA, acute kidney injury, and severe sepsis likely secondary to deep soft tissue infection. Status post urgent debridement on 04/27/19 He currently remains intubated -patient was initially on Vancomycin with Zosyn but cultures returning as MSSA so need for MRSA coverage and vanocomycin can be stopped on 04/28/19 -04/29/19: discussed with Infectious Disease Dr. Pineda who recommends to continue Zosyn for now -Patient was extubated on 05/01/19. 05/02/19: Patient on oxymask and continues to be in atrial fibrillation with rapid ventricular response. Patient's daughter at bedside. We discussed examining the patient's buttock area when wound care arrives to see progress of wound healing. we discussed if there are concerns about wound healing and if wound vac was not an option, then potentially general surgery can advise for possible diverting colostomy. Patient's daughter obviously concerned about surgical risks of ostomy in regards to overall health condition. Patient was awake and verbal during physical exam but he could not participate actively in [facility] care conversation because of lethargy. patient did not report of acute pain and no other symptoms but this is mostly due to the lethargy -patient remains in ICU for further management and care (2) Lactic acidosis: -admission lactic acid 6.6 -lactic acidosis has resolved (3) Decubitus ulcer: -Present on admission of necrosis of right buttock ulceration -Operation Date: 04/26/19: s/p Debridement necrotic right buttock ulceration; drainage of perirectal abscess; incision of thrombosed hemorrhoid -management of ulcers as above in regards to sepsis management (4) Atrial fibrillation with RVR: -secondary to sepsis and metabolic derangements -on metoprolol q6 hours with daily digoxin -on IV heparin most as stroke prevention. because it is unclear as to further surgical interventions for the patient, home dose coumadin has not been restarted yet (5) Elevated troponin: -elevated troponins on this admission from demand ischemia due to to sepsis and atrial fibrillation with rapid ventricular response -on IV heparin -echocardiogram on 04/28/19 was not well visualized. 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 will defer to ICU physician on Lasix course as medical conditions are attempted to be optimized for extubation (9) Acute kidney injury superimposed on CKD: -peak creatinine during hospital stay of 2.99 by 04/27/19 -currently the creatine is 1.25 as of 04/30/19 and shows resolution of acute kidney injury -creatinine is stable despite IV Lasix (10) CKD (chronic kidney disease) stage 3, GFR 30-59 ml/min: -Baseline creatinine should be around 1.3 Rhabdomyolysis -creatinine kinase peaked above 3000 on 04/28/19 likely from continued muscle breakdown products and recent buttock ulcer debridement -current level of creatinine kinase on 04/30/19 is 1055 which shows resolving rhabdomyolysis Hypokalemia Hypomagnesemia Hypophosphatemia -serum potassium is adequate today, target serum potassium between 3.5 to 4 -patient receiving magnesium and phosphorous supplements in the ICU -target serum magnesium is 2 -ideal serum phosphorous should be close to 4 (11) Diabetes mellitus, type 2: Type 2 diabetes mellitus with group home current use of insulin and with hyperglycemia Mild Diabetic Ketoacidosis -Patient presenting from home with generalized weakness and frequent falls for the past 3 days prior to admission with insulin pump became disconnected at some point in time throughout the night and patient was unable to reconnect -currently on insulin drip Transaminitis -04/26/19 liver ultrasound Exam is compromised suboptimal penetration. The liver is enlarged and echogenic. Pancreas is obscured by overlying bowel gas. Caliber of the common bile duct is at the upper limits of normal following cholecystectomy, measuring 7 mm. There is a small fluid-filled structure within the cholecystectomy bed which may reflect a small gallbladder remnant. There is no right hydronephrosis -AST has improved to be in the 100s -monitor liver function enzymes (12) Hypothyroidism: -continue levothyroxine (13) COPD, moderate: management as per ICU physician (14) SALAS (obstructive sleep apnea): -CPAP as per home settings as tolerated (15) History of pulmonary embolism: -History of pulmonary embolism in the past continue home dose gabapentin, buproprion, duloxetine via NG tube (16) DVT prophylaxis: -On IV heparin daughter Bing [phone] daughter Tatyana sister Enrike [phone] Subjective Patient was extubated on 05/01/19. 05/02/19: Patient on oxymask and continues to be in atrial fibrillation with rapid ventricular response. Patient's daughter at bedside. We discussed examining the patient's buttock area when wound care arrives to see progress of wound healing. we discussed if there are concerns about wound healing and if wound vac was not an option, then potentially general surgery can advise for possible diverting colostomy. Patient's daughter obviously concerned about surgical risks of ostomy in regards to overall health condition. Patient was awake and verbal during physical exam but he could not participate actively in health care conversation because of lethargy. patient did not report of acute pain and no other symptoms but this is mostly due to the lethargy Physical Exam Constitutional: + obese Eyes: PERRL, conjunctivae normal, anicteric sclerae ENMT: external ear and nose normal, oropharynx normal Neck: normal visual inspection Respiratory: normal respiratory effort on oxymask Cardiovascular: Rate/Rhythm: + tachycardic and + irregularly irregular Gastrointestinal (Abdomen): normal bowel sounds, soft, nontender, no hepatosplenomegaly Musculoskeletal: Head/Neck/Chest: normocephalic and head atraumatic Neurologic: PERRL, EOMI, accommodation nl, no face palsy, no dysarthria lethargy Genitourinary: + penis abnormality (bagley) Results & Data Vital Signs (Past 12 Hours) Vital Signs Temp Pulse Pulse Resp BP BP Pulse Ox 05/02/19 08:00 124 H 16 102/67 96 05/02/19 07:37 121 H 20 99 05/02/19 07:00 130 H 37 H 96/65 L 96 05/02/19 06:00 37.1 C 110 H 34 H 112/63 95 05/02/19 05:10 123 H 119/54 L 05/02/19 05:09 104 H 119/54 L 05/02/19 05:00 107 H 30 H 123/54 L 90 05/02/19 03:00 131 H 16 111/64 95 05/02/19 02:00 119 H 20 125/63 90 05/02/19 01:00 37.6 C H 118 H 36 H 119/66 94 05/02/19 00:00 37.6 C H 108 H 34 H 130/60 97 05/01/19 23:00 37.6 C H 91 H 22 101/60 95 05/01/19 22:00 37.6 C H 125 H 26 H 121/58 L 95 (1) Diabetes mellitus, type 2 Chronic kidney disease stage: stage 3 (moderate) Diabetes mellitus complication detail: with chronic kidney disease Diabetes mellitus complication status: with kidney complications Diabetes mellitus group home insulin use: with group home use Qualified Code(s): E11.22 - Type 2 diabetes mellitus with diabetic chronic kidney disease; N18.3 - Chronic kidney disease, stage 3 (moderate); Z79.4 - snf (current) use of insulin (2) Hypothyroidism Hypothyroidism type: unspecified Qualified Code(s): E03.9 - Hypothyroidism, unspecified
[2019-05-02] MEDS: DULOXETINE HCL 60 MG CAP PO SCH (09:20)
--- NOTE | 2019-05-02 10:19 | Infectious Disease Progress Nt ---
Date of Service May 02, 2019 Assessment & Plan (1) Gram positive sepsis: pt will continue zosyn, awaiting decision for colostomy, if no colostomy, can transition to rocpehin 2 g IV daily, would give 4 weeks. will need weekly cbc, cmp, esr while on abx. Subjective pt extubated, 05/01 wbc 9, creat 1.3 repeat blood cultures negative. Results & Data Vital Signs (Past 12 Hours) Vital Signs Temp Pulse Pulse Resp BP BP Pulse Ox 05/02/19 09:00 130 H 24 122/81 95 05/02/19 08:00 124 H 16 102/67 96 05/02/19 07:37 121 H 20 99 05/02/19 07:00 130 H 37 H 96/65 L 96 05/02/19 06:00 37.1 C 110 H 34 H 112/63 95 05/02/19 05:10 123 H 119/54 L 05/02/19 05:09 104 H 119/54 L 05/02/19 05:00 107 H 30 H 123/54 L 90 05/02/19 03:00 131 H 16 111/64 95 05/02/19 02:00 119 H 20 125/63 90 05/02/19 01:00 37.6 C H 118 H 36 H 119/66 94 05/02/19 00:00 37.6 C H 108 H 34 H 130/60 97 05/01/19 23:00 37.6 C H 91 H 22 101/60 95 Laboratory Results Microbiology 04/26/19 18:48 Sacrum Gram Stain - Final 04/26/19 18:48 Sacrum Aerobic and Anaerobic Culture - Final Staphylococcus aureus 04/29/19 04:23 Blood Aerobic Blood Culture - Preliminary No growth in Aerobic bottle after 48 hours. 04/29/19 04:23 Blood Anaerobic Blood Culture - Preliminary No growth in Anaerobic bottle after 48 hours. 04/29/19 04:23 Blood Aerobic Blood Culture - Preliminary No growth in Aerobic bottle after 48 hours. 04/29/19 04:23 Blood Anaerobic Blood Culture - Preliminary No growth in Anaerobic bottle after 48 hours. 04/26/19 10:57 Blood Aerobic Blood Culture - Final Staphylococcus aureus 04/26/19 10:57 Blood Anaerobic Blood Culture - Final Staphylococcus aureus 04/26/19 10:26 Blood Aerobic Blood Culture - Final Staphylococcus aureus 04/26/19 10:26 Blood Anaerobic Blood Culture - Final Staphylococcus aureus 04/26/19 11:50 Urine,Clean Catch Urine Culture - Final Three types of organisms present, all high counts. Repeat collection recommended. No further identifications or sensitivities to follow. PG Care Time/CCT Total # of Minutes Spent Total Time Spent with Patient: Total time spent is greater than 50% in coordination of care (as documented) at patient's floor/unit and/or counseling patient:
[2019-05-02] MEDS: INSULIN REGULAR 250 UNITS in SODIUM CHLORIDE 0.9% 247.5 ML IV SCH (11:57)
--- NOTE | 2019-05-02 12:11 | Cardiology Progress Note ---
Date of Service May 02, 2019 Assessment & Plan (1) Atrial fibrillation with RVR: Continue rate control with metoprolol orally 50 mg p.o. every 6 hours. Continue IV digoxin 0.125 mg daily. Swallowing study pending. (2) Pulmonary vascular congestion: Remains off the ventilator. Continue IV diuretics especially given the administration of IV fluids for his medications including Zosyn with significant IV fluid intake as a result. He has diuresed well, we at least need to keep his intake and output even if not slightly negative. Continue heparin for stroke prophylaxis given atrial fibrillation and DVT prophylaxis. Subjective Chief complaint: Follow-up atrial fibrillation, shortness of breath BiPAP at present, he is on an oxygen mask at 5 L/min. Ongoing atrial fibrillation noted, however his rates are improved in the range of 100 to 115 bpm. Review of Systems Review of Systems: All systems reviewed & are unremarkable except as noted in HPI & below Physical Exam Physical Exam: Temp Pulse Resp BP Pulse Ox 37.1 C 115 H 20 122/81 99 05/02/19 06:00 05/02/19 11:00 05/02/19 11:00 05/02/19 09:00 05/02/19 11:00 Constitutional: + ill appearing and + morbidly obese Respiratory: Mildly decreased breath sounds the bases, no rubs rhonchi or wheezing Cardiovascular: Rate/Rhythm: + tachycardic and + irregularly irregular Heart Sounds: no murmur Vessels: no JVD Extremities: no edema Knee-high sequential pneumatic compression devices in place, no extremity edema. Neurologic: PERRL, EOMI, accommodation nl, no face palsy, no dysarthria Results & Data Vital Signs (Past 12 Hours) Vital Signs Temp Pulse Pulse Resp BP BP Pulse Ox 05/02/19 11:00 115 H 20 99 05/02/19 10:00 112 H 14 91 05/02/19 09:00 130 H 24 122/81 95 05/02/19 08:00 124 H 16 102/67 96 05/02/19 07:37 121 H 20 99 05/02/19 07:00 130 H 37 H 96/65 L 96 05/02/19 06:00 37.1 C 110 H 34 H 112/63 95 05/02/19 05:10 123 H 119/54 L 05/02/19 05:09 104 H 119/54 L 05/02/19 05:00 107 H 30 H 123/54 L 90 05/02/19 03:00 131 H 16 111/64 95 05/02/19 02:00 119 H 20 125/63 90 05/02/19 01:00 37.6 C H 118 H 36 H 119/66 94 Laboratory Results Current Inpatient Medications Allopurinol (Zyloprim) 300 mg PO QPM [facility] Stop: 05/26/19 20:59 Last Admin: 04/26/19 21:28 Dose: 300 mg Documented by: Aspirin (Aspirin Chew) 81 mg PO QAM [facility] Stop: 05/27/19 08:59 Last Admin: 04/27/19 09:32 Dose: 81 mg Documented by: Atorvastatin Calcium (Lipitor) 10 mg PO QAM [facility] Stop: 05/27/19 08:59 Bupropion HCl (Wellbutrin) 75 mg NG BID [facility] Stop: 05/29/19 10:59 Last Admin: 05/02/19 08:42 Dose: 75 mg Documented by: Dextrose (Dextrose 50%) 25 - 50 ml IV UD PRN; Protocol PRN Reason: Hypoglycemia Protocol Stop: 05/26/19 13:14 Duloxetine HCl (Cymbalta) 60 mg PO QAM [facility] Stop: 05/27/19 08:59 Last Admin: 05/02/19 09:20 Dose: 60 mg Documented by: Famotidine (Pepcid) 20 mg PO BID [facility] Stop: 05/29/19 20:59 Last Admin: 05/02/19 08:42 Dose: 20 mg Documented by: Gabapentin (Neurontin) 100 mg PO TID [facility] Stop: 05/29/19 13:59 Last Admin: 05/02/19 09:08 Dose: 100 mg Documented by: Glucagon (Glucagen) 1 mg IM UD PRN; Protocol PRN Reason: Hypoglycemia Protocol Stop: 05/26/19 13:14 Glucose (Glucose 40%) 15 - 30 gm PO UD PRN; Protocol PRN Reason: Hypoglycemia Protocol Stop: 05/26/19 13:14 Glucose (Dex4 Glucose) 4 - 8 tabs PO UD PRN; Protocol PRN Reason: Hypoglycemia Protocol Stop: 05/26/19 13:14 Insulin Human Regular 250 (units/ Sodium Chloride) 250 mls @ 8 mls/hr IV .Q24H [facility]; Protocol Stop: 05/26/19 12:59 Last Admin: 05/02/19 11:57 Dose: 8 units/hr, 8 mls/hr Documented by: Heparin Sodium/Dextrose (Heparin Sodium/Dextrose) 25,000 units in 500 mls @ 44 mls/hr IV .[id number] [facility]; Protocol Stop: 05/26/19 14:09 Last Titration: 05/02/19 07:38 Dose: 2,200 units/hr, 44 mls/hr Documented by: Piperacillin Sod/Tazobactam (Sod 4.5 gm/ Dextrose) 120 mls @ 30 mls/hr IV Q8H [facility]; Protocol Stop: 05/02/19 14:00 Last Admin: 05/02/19 09:11 Dose: 30 mls/hr Documented by: Furosemide 40 mg/ Syringe 4 mls @ 4 mls/min IV Q8H [facility] Stop: 05/30/19 13:59 Last Admin: 05/02/19 05:42 Dose: 4 mls/min Documented by: Digoxin 125 mcg/ Syringe 10 mls @ 2 mls/min IV DAILY@1600 [facility] Stop: 05/31/19 15:59 Last Admin: 05/01/19 15:12 Dose: 2 mls/min Documented by: Ceftriaxone Sodium 2,000 mg/ (Dextrose) 70 mls @ 140 mls/hr IV DAILY@1800 [facility]; Protocol Stop: 05/16/19 17:59 Insulin Aspart (Novolog Flexpen) 0 units SC ACHS [facility] Stop: 06/01/19 11:29 Lactulose (Chronulac) 20 gm PO DAILY [facility] Stop: 05/31/19 08:59 Last Admin: 05/02/19 08:43 Dose: 20 gm Documented by: Levothyroxine Sodium (Synthroid) 200 mcg PO DAILY@0500 [facility] Stop: 05/30/19 04:59 Levothyroxine Sodium (Synthroid) 50 mcg PO DAILY@0500 [facility] Stop: 05/30/19 04:59 Metoprolol Tartrate (Lopressor) 50 mg PO Q6H [facility] Stop: 05/28/19 11:59 Last Admin: 05/02/19 08:41 Dose: 50 mg Documented by: Miscellaneous (Carbohydrates For Hypoglycemia) 15 - 30 gm PO PRN PRN PRN Reason: Hypoglycemia Treatment Stop: 05/26/19 13:14 Miscellaneous (Icu Electrolyte Replacement Protocol) 1 ea N/A QAM OFE Stop: 05/06/19 09:54 Last Admin: 05/02/19 09:07 Dose: 1 ea Documented by: Miscellaneous Information (Consult Glycemic Management Pharmacy) 1 ea N/A UD TX N PRN Reason: Consult Stop: 05/31/19 23:18 Nystatin (Mycostatin) 1 appln EXT BID PRN PRN Reason: Rash Stop: 05/26/19 14:09 Last Admin: 04/30/19 17:30 Dose: 1 appln Documented by: Oxycodone HCl (Roxicodone) 5 mg PO Q6 PRN PRN Reason: Pain Stop: 05/14/19 11:38 Polyethylene Glycol (Miralax Powder Packet) 17 gm PO DAILY PRN PRN Reason: Constipation Stop: 05/31/19 08:31 Senna/Docusate Sodium (Senokot S) [facility] [place] Stop: 05/31/19 08:59 Last Admin: 05/02/19 08:42 Dose: 1 tab Documented by: Vitamin D (Vitamin D3) 2,000 units PO DAILY [facility] Stop: 05/27/19 08:59 Last Admin: 04/27/19 09:33 Dose: 2,000 units Documented by: Warfarin Sodium (Coumadin) 8 mg PO DAILY@1600 [facility] Stop: 05/26/19 15:59 Last Admin: 04/26/19 15:39 Dose: 8 mg Documented by:
[2019-05-02] MEDS: OXYCODONE HCL SOLN 5 MG/5 ML UDC PO PRN (12:39)
--- NOTE | 2019-05-02 13:55 | Surgery Progress Note ---
Date of Service May 02, 2019 Assessment & Plan (1) Diabetic ulcer of right buttock associated with type 2 diabetes mellitus, with necrosis of muscle: I discussed patient with Dr. Ortiz who was by earlier to see patient. Wound care + nursing changed dressing today, so we will be by again tomorrow to re-assess wound. Picture of wound from today is in patient's chart. At this time we do not plan on proceeding with a diverting colostomy. Recommend continuing wet-to-dry dressing changes with NS, 4x4 gauze, ABD, and medipore tape. Results & Data Vital Signs (Past 12 Hours) Vital Signs Temp Pulse Pulse Resp BP BP Pulse Ox 05/02/19 12:00 101 H 35 H 115/61 99 05/02/19 11:00 115 H 20 99 05/02/19 10:00 112 H 14 91 05/02/19 09:00 130 H 24 122/81 95 05/02/19 08:00 124 H 16 102/67 96 05/02/19 07:37 121 H 20 99 05/02/19 07:00 130 H 37 H 96/65 L 96 05/02/19 06:00 37.1 C 110 H 34 H 112/63 95 05/02/19 05:10 123 H 119/54 L 05/02/19 05:09 104 H 119/54 L 05/02/19 05:00 107 H 30 H 123/54 L 90 05/02/19 03:00 131 H 16 111/64 95 05/02/19 02:00 119 H 20 125/63 90 PG Care Time/CCT Total # of Minutes Spent Total Time Spent with Patient: Total time spent is greater than 50% in coordination of care (as documented) at patient's floor/unit and/or counseling patient:
--- NOTE | 2019-05-02 14:23 | Pharmacy Report ---
Glycemic Control Consultation - Date of Service May 02, 2019 - Scope Scope: Glycemic Pharmacist consulted for glycemic control and to write orders per [facility] inpatient glycemic control protocol - Objective Weight: 164.4 kg Accuchecks BSG (last 24hrs): 05/01/19 05/01/19 05/01/19 14:35 16:35 16:54 Glucose POC Glucose 156 H 106 H 106 H 05/01/19 05/01/19 05/01/19 17:13 18:12 20:13 Glucose POC Glucose 125 H 121 H 105 H 05/01/19 05/01/19 05/02/19 21:13 22:02 00:13 Glucose POC Glucose 129 H 122 H 173 H 05/02/19 05/02/19 04:24 11:54 Glucose 222 H POC Glucose 281 H Laboratory Data (last 24hrs): 05/02/19 04:24 Potassium 3.8 Carbon Dioxide 28 Anion Gap 8.0 Creatinine 1.32 Est Cr Clr Drug Dosing 83.1 HbA1c: Hemoglobin A1c 9.5 % (4.5-5.6) H 04/27/19 02:04 - Recent Pertinent Medications Outpatient Anti-diabetic Regimen: U-500 insulin pump * Per data from previous admission in June 2018 * Total daily basal dose is ~70 units/day *of U-500* which is equivalent to about 350 units/day of U-100 insulin * Non-adherence noted - patient often forgets to provide additional bolus doses for prandial coverage * A1c = 9.5 % on 04/27/19 The patient is currently receiving: * Novolog correctional insulin only * Insulin drip was running at 7.5 units/hr but this was discontinued 05/01 @ ~2330 Risk Factors for Insulin Resistance: * Infection: MSSA bacteremia 2nd SSTI * Pressors: Phenylephrine discontinued today * IVF: heparin drip mixed in dextrose @ 44 mL/hr * Recent Surgery: POD 6 s/p wound debridement * Diet: Peptamen VHP held after extubation. Currently NPO * Mechanical Ventilation: extubated 10 AM - Assessment & Plan Assessment & Plan: ASSESSMENT: * 69 yo M with poorly controlled T2DM based on A1c despite significant outpatient insulin (>300 units U-100 equivalents) managed as an outpatient on U-500 insulin pump * Patient currently in ICU and has been on an insulin drip for many days. This was held last night as tubefeeds were stopped and patient was not eating, but as no basal insulin has been administered to over-lap and especially with significant outpatient requirements, insulin drip will be resumed at close to previous rate CORRIE. * Stressors are decreasing. However, we are unable to transition to SQ insulin at this time as patient will require basal insulin to be U-500 but this is inappropriate for a patient who is NPO as U-500 insulin covers *both* basal and prandial needs. Therefore patient is to remain on IV insulin drip at least until U-500 SQ can be started. Insulin drip may be discontinued only after an appropriate overlap with U-500 SQ and also pending assessment of BSG and drip rate responses to U-500 doses * Data from previous admission June 2018 where patient was ordered diet indicates that U-500 requirements as an inpatient also exceed 300 units of U- 100 insulin equivalents * Will fix CHO ratio at 4 g CHO/unit as calculator will only go as tight as 5 g CHO/unit no matter the drip rate or trend in BSG PLAN FOR INPATIENT GLYCEMIC CONTROL: * Continue insulin drip while NPO and then also continue pending assessment of successful overlap of U-500 insulin when appropriate * Bolus insulin * Nutritional / Prandial insulin per carb ratio of 1 unit per 4 grams CHO consumed while on insulin drip * Please note that the plan above was derived based on current level of insulin resistance and hospital stress. These recommendations are appropriate for inpatient admission only. Plan of care upon discharge will need to be reassessed to avoid potential outpatient hypo/hyperglycemia. Thank you.
[2019-05-02] MEDS: DIGOXIN 125 MCG in SYRINGE 9.5 ML IV SCH (15:45)
[2019-05-02] MEDS: NYSTATIN SUSP 500,000 U/5 ML UDC PO SCH ×2 (15:45→20:55)
[2019-05-02] MEDS: cefTRIAXone SODIUM 2,000 MG in DEXTROSE 5% 50 ML IV SCH (16:56)
[2019-05-03] MEDS: HEPARIN SODIUM/DEXTROSE 25,000 UNITS/500 ML BAG IV SCH ×4 (03:46→14:44)
[2019-05-03 04:55] LABS: Nucleated RBC # (auto) 0.03 K/uL (0-0); Nucleated RBC % (auto) 0.3 %
[2019-05-03 05:18] LABS: Partial Thromboplastin Ratio 1.7
[2019-05-03 05:19] LABS: Hematocrit (blood only) 35.6 % (42-52); Hemoglobin 11.7 g/dL (14.0-18.0); Mean Corpuscular Hemoglobin 30.2 pg (25-34); Mean Corpuscular Hgb Conc 32.9 g/dL (32-36); Mean Platelet Volume 11.3 fL (7.4-10.4); Platelet Count 202 K/uL (130-400); RDW Coefficient of Variation 15.6 % (11.5-14.5); RDW Standard Deviation 52.4 fL (36.4-46.3); Red Blood Count 3.87 M/uL (4.7-6.1); White Blood Count 10.52 K/uL (4.8-10.8)
[2019-05-03 05:22] LABS: Basophils # (auto) 0.05 K/uL (0-0.2); Basophils % (auto) 0.5 %; Eosinophils # (auto) 0.32 K/uL (0-0.5); Immature Granulocytes # (auto) 0.77 K/uL (0.00-0.02); Immature Granulocytes % (auto) 7.3 %; Lymphocytes % (auto) 13.3 %; Monocytes # (auto) 0.86 K/uL (0.11-0.59); Monocytes % (auto) 8.2 %; Neutrophils # (auto) 7.12 K/uL (1.4-6.5); Neutrophils % (auto) 67.7 %; Partial Thromboplastin Time 45.4 Seconds (21.0-31.0); RBC Morphology Unremarkable
[2019-05-03] MEDS: LEVOTHYROXINE SODIUM 50 MCG TABLET PO SCH (05:35)
[2019-05-03] MEDS: LEVOTHYROXINE SODIUM 200 MCG TABLET PO SCH (05:35)
[2019-05-03 05:37] LABS: BUN Creatinine Ratio 24.2 (10-20); Calcium 8.8 mg/dl (8.5-10.1); Creatinine Clr Calc Pharmacy 99.7 ml/min; Est GFR (African American) 80.1; Est GFR (Non-African American) 69.1; Magnesium 1.7 mg/dl (1.8-2.4); Potassium 3.7 mmol/L (3.5-5.1)
[2019-05-03] MEDS: METOPROLOL TARTRATE 50 MG TAB PO SCH ×3 (05:37→17:31)
[2019-05-03] MEDS: FUROSEMIDE 40 MG in SYRINGE 0 ML IV SCH ×2 (05:39→13:55)
[2019-05-03] MEDS ORDERED: HEPARIN IV BOLUS 4,000 UNITS in SYRINGE 0 ML IV ONE (05:45)
[2019-05-03] MEDS: INSULIN REGULAR 250 UNITS in SODIUM CHLORIDE 0.9% 247.5 ML IV SCH (06:07)
--- NOTE | 2019-05-03 06:52 | Critical Care Progress Note ---
Date of Service May 03, 2019 Assessment & Plan (1) Admitted to intensive care unit: Reason Critically Ill: 69yo male with PMHx significant for diabetes, morbid obesity admitted with mild DKA, ALMA ROSA, and severe sepsis 2/2 stage 4 buttock wound s/p debridement 04/26. NEURO -currently extubated; speech/swallow consult- no signficant difficulties. Wellbutrin, Celexa, and Neurontin restarted for intermittent agitation. Can consider Zyprexa addition if worsening. CV Afib w/ RVR- likely 2/2 DKA, dehydration, sepsis, significant acute renal failure (since resolved), respiratory distress Continue Dig, Metoprolol 75 mg q6h Anticoagulated on Coumadin at home, will restart. INR will be checked tomorrow. On IV heparin currently as will likely require further surgery in the near future, continue as bridging. Goal HR <120, currently within goal Appreciate Cardiology recs Thrombocytopenia Pt with downtrend while on heparin; has since uptrended Likely decreased due to septic picture, but HIT testing was ordered. 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 Can consider a serotonin assay. Cont to trend HLD, HTN, CAD- Cont home Aspirin, holding statin CHF- ECHO November 2018: Mildly reduced EF, grade 1 diastolic dysfunction. As below, holding home diuretics due to ALMA ROSA PULM CXR- Mild pulmonary vascular congestion. Repeat showed interval development of pulmonary edema On home O2 at baseline at night Continue IV Lasix 40 mg COPD- stable SALAS- CPAP HS when able ABD/GI Currently on a diet after swallow study Bowel movement 05/03 after 4 days of no movement. On scheduled senna and miralax. Concern for bowel Elevated LFT's, improving- likely 2/2 hypoperfusion, sepsis Liver U/S- Fatty infiltration of the liver and hepatomegaly /RENAL CKD III, GFR 30-59 ml/min ALMA ROSA- Baseline creatinine ~1.3. At baseline now. ARF suspected hypoperfusion, ATN IV Lasix 40 mg BID- currently diuresing well. ENDO DM2- Elevated BSG 2/2 insulin pump being disconnected overnight. BSG 521 on admit Normal pH and bicarb, elevated AG 16 and b-hydroxybutyric acid 15 (normalized now) ICU Hyperglycemic protocol- insulin gtt right now Will watch volume status 2/2 pulmonary edema and h/o CHF A1C 9.5 Hypothyroidism- Cont levothyroxine ID Originally concern for Sepsis-Lactic acid 6.6, WBC 15 K, tachycardic; afebrile, BP low-normal on admit. Serum procalcitonin improved Etiology likely 2/2 perirectal abscess. 04/26 debridement necrotic R buttock ulceration; drainage of perirectal abscess; incision of thrombosed hemorrhoid. No wound vac 2/2 proximity to rectum CXR- No evidence of focal pulmonary consolidation Elevated LFT- Liver U/S- reviewed as above Cont IV Zosyn. Wound cx- Staph Aureus . Urine cultures-unremarkable. Blood cx- Staph Aureus Repeat blood cx 04/29- NGTD Appreciate ID consult- switched to rocephin 05/02 HEME Stable H/H. No concern for acute bleeding Trend Daily CBC's LINES: PIVx3, L IJ CVC, A-line DVT Prophylaxis: Heparin FULL CODE DISPO: ICU (2) Gram positive sepsis: (3) Pulmonary vascular congestion: (4) Atrial fibrillation with rapid ventricular response: (5) Acute hypoxemic respiratory failure: Supervising Physician Co-Signing Physician Notes Dr. Corral was the resident-physician during care of patient. I separately evaluated patient for simeon portions of the history and the exam. I was present during the critical portion of medical decision making, and I discussed the case with the resident. I generally agree with the findings and plan except for any additions/exceptions noted. Patient is doing better today. His heart rate is down into the high 90s and low 100s. We have increased his metoprolol to 75 mg every 6 hours. We are reloading him with digoxin. He is diuresing well. Continue Lasix at 40 mg 3 times daily. His BNP is elevated to over 2000. Recommend checking a post diuresis chest x-ray tomorrow. Continue p.o. diet since he did well with speech therapy yesterday. Will transition much of his medications over to by mouth as well. His glucose has been showing improvement as well. He is currently on ceftriaxone and will continue this for 4 to 6 weeks per ID recommendations. He does have an MSSA bacteremia that has cleared. He will also need a repeat echo at some point later this admission to follow-up on his systolic and diastolic function given that his most recent echo was a very poor study. Recommend continued CPAP at night. Continue heparin drip for his history of pulmonary embolism and atrial fibrillation. We are starting Coumadin today. Check INR tomorrow. Patient is safe to transfer out to the floor later today with telemetry when a bed is available.. I have personally spent 35 minutes of critical care time in the direct management of this patient. This is a life/limb threatening event. This includes time spent evaluating patient, direct bedside care, chart review, placing orders, interpretation of diagnostic studies, discussion with consultants, patient, and/or family members regarding treatment decisions, as well as other required patient management activities. This time is exclusive of all separately billable procedures, and teaching time and separate from and in addition to any other critical care service time. Subjective Mr. Andujar states he's doing well this AM. Alert only to self this AM. However, he denies SIMPSON, blurry vision, cough, runny nose or sore throat, chest pain, SOB, palpitations, abd pain, diarrhea, constipation, dysuria, numbness or tingling. States the swelling in his hands and feet are "nothing out of the ordinary" Review of Systems Review of Systems: All systems reviewed & are unremarkable except as noted in HPI & below Physical Exam Physical Exam: General: Alert, orientedx1. Morbidly obese, Resting comfortably in bed. Skin: Bandaged stage 4 ulcer on right buttock Psych: Appropriate mood and affect Neuro: Decreased ability to move of own volition HEENT: NC/AT Chest: Nontender to palpation. CV: Irregularly irregular rate Resp: Breath sounds decreased bilaterally on the front Abdomen: Nontender. No guarding. Extremities: + edema in lower extremities bilaterally. Results & Data Vital Signs (Past 12 Hours) Vital Signs Temp Pulse Pulse Resp BP Pulse Ox 05/03/19 06:00 36.9 C 123 H 95 H 92/52 L 95 05/03/19 04:00 37.1 C 113 H 23 94/50 L 96 05/03/19 03:22 84 18 94 05/03/19 03:00 87 20 94/50 L 96 05/03/19 02:00 37.1 C 90 19 107/64 96 05/03/19 01:00 36.9 C 90 24 101/67 98 05/02/19 23:00 36.7 C 78 27 H 115/67 100 05/02/19 21:00 36.7 C 106 H 23 130/67 95 05/02/19 20:12 80 24 99 05/02/19 20:00 36.7 C 120 H 34 H 108/72 97 Laboratory Results Laboratory Results - last 24 hr 05/02/19 05/02/19 05/02/19 11:54 12:56 13:59 WBC RBC Hgb Hct MCV MCH MCHC RDW Std Deviation RDW Coeff of Baldo Plt Count MPV Immature Gran % (Auto) Neut % (Auto) Lymph % (Auto) Taylor % (Auto) Eos % (Auto) Baso % (Auto) Immature Gran # (Auto) Neut # (Auto) Lymph # (Auto) Taylor # (Auto) Eos # (Auto) Baso # (Auto) Absolute Nucleated RBC Nucleated RBC % (auto) RBC Morphology APTT PTT Ratio Sodium Potassium Chloride Carbon Dioxide Anion Gap BUN Creatinine Est Cr Clr Drug Dosing Est GFR ( Amer) Est GFR (Non-Af Amer) BUN/Creatinine Ratio Glucose POC Glucose 281 H 265 H 266 H Calcium Phosphorus Magnesium 05/02/19 05/02/19 05/02/19 15:06 15:50 17:23 WBC RBC Hgb Hct MCV MCH MCHC RDW Std Deviation RDW Coeff of Baldo Plt Count MPV Immature Gran % (Auto) Neut % (Auto) Lymph % (Auto) Taylor % (Auto) Eos % (Auto) Baso % (Auto) Immature Gran # (Auto) Neut # (Auto) Lymph # (Auto) Taylor # (Auto) Eos # (Auto) Baso # (Auto) Absolute Nucleated RBC Nucleated RBC % (auto) RBC Morphology APTT PTT Ratio Sodium Potassium Chloride Carbon Dioxide Anion Gap BUN Creatinine Est Cr Clr Drug Dosing Est GFR ( Amer) Est GFR (Non-Af Amer) BUN/Creatinine Ratio Glucose POC Glucose 253 H 230 H 203 H Calcium Phosphorus Magnesium 05/02/19 05/02/19 05/02/19 18:33 19:37 21:02 WBC RBC Hgb Hct MCV MCH MCHC RDW Std Deviation RDW Coeff of Baldo Plt Count MPV Immature Gran % (Auto) Neut % (Auto) Lymph % (Auto) Taylor % (Auto) Eos % (Auto) Baso % (Auto) Immature Gran # (Auto) Neut # (Auto) Lymph # (Auto) Taylor # (Auto) Eos # (Auto) Baso # (Auto) Absolute Nucleated RBC Nucleated RBC % (auto) RBC Morphology APTT PTT Ratio Sodium Potassium Chloride Carbon Dioxide Anion Gap BUN Creatinine Est Cr Clr Drug Dosing Est GFR ( Amer) Est GFR (Non-Af Amer) BUN/Creatinine Ratio Glucose POC Glucose 219 H 145 H 145 H Calcium Phosphorus Magnesium 05/02/19 05/02/19 05/02/19 22:02 23:07 23:54 WBC RBC Hgb Hct MCV MCH MCHC RDW Std Deviation RDW Coeff of Baldo Plt Count MPV Immature Gran % (Auto) Neut % (Auto) Lymph % (Auto) Taylor % (Auto) Eos % (Auto) Baso % (Auto) Immature Gran # (Auto) Neut # (Auto) Lymph # (Auto) Taylor # (Auto) Eos # (Auto) Baso # (Auto) Absolute Nucleated RBC Nucleated RBC % (auto) RBC Morphology APTT PTT Ratio Sodium Potassium Chloride Carbon Dioxide Anion Gap BUN Creatinine Est Cr Clr Drug Dosing Est GFR ( Amer) Est GFR (Non-Af Amer) BUN/Creatinine Ratio Glucose POC Glucose 129 H 124 H 107 H Calcium Phosphorus Magnesium 05/03/19 05/03/19 05/03/19 01:04 02:03 03:02 WBC RBC Hgb Hct MCV MCH MCHC RDW Std Deviation RDW Coeff of Baldo Plt Count MPV Immature Gran % (Auto) Neut % (Auto) Lymph % (Auto) Taylor % (Auto) Eos % (Auto) Baso % (Auto) Immature Gran # (Auto) Neut # (Auto) Lymph # (Auto) Taylor # (Auto) Eos # (Auto) Baso # (Auto) Absolute Nucleated RBC Nucleated RBC % (auto) RBC Morphology APTT PTT Ratio Sodium Potassium Chloride Carbon Dioxide Anion Gap BUN Creatinine Est Cr Clr Drug Dosing Est GFR ( Amer) Est GFR (Non-Af Amer) BUN/Creatinine Ratio Glucose POC Glucose 104 H 99 107 H Calcium Phosphorus Magnesium 05/03/19 05/03/19 05/03/19 03:56 04:19 04:19 WBC RBC Hgb Hct MCV MCH MCHC RDW Std Deviation RDW Coeff of Baldo Plt Count MPV Immature Gran % (Auto) Neut % (Auto) Lymph % (Auto) Taylor % (Auto) Eos % (Auto) Baso % (Auto) Immature Gran # (Auto) Neut # (Auto) Lymph # (Auto) Taylor # (Auto) Eos # (Auto) Baso # (Auto) Absolute Nucleated RBC Nucleated RBC % (auto) RBC Morphology APTT 45.4 H* PTT Ratio 1.7 Sodium 134 L Potassium 3.7 Chloride 97 L Carbon Dioxide 30 Anion Gap 7.0 BUN 27 H Creatinine 1.10 Est Cr Clr Drug Dosing 99.7 Est GFR ( Amer) 80.1 Est GFR (Non-Af Amer) 69.1 BUN/Creatinine Ratio 24.2 H Glucose 150 H POC Glucose 111 H Calcium 8.8 Phosphorus 3.0 Magnesium 1.7 L 05/03/19 05/03/19 04:19 07:40 WBC 10.52 RBC 3.87 L Hgb 11.7 L Hct 35.6 L MCV 92.0 MCH 30.2 MCHC 32.9 RDW Std Deviation 52.4 H RDW Coeff of Baldo 15.6 H Plt Count 202 MPV 11.3 H Immature Gran % (Auto) 7.3 Neut % (Auto) 67.7 Lymph % (Auto) 13.3 Taylor % (Auto) 8.2 Eos % (Auto) 3.0 Baso % (Auto) 0.5 Immature Gran # (Auto) 0.77 H Neut # (Auto) 7.12 H Lymph # (Auto) 1.40 Taylor # (Auto) 0.86 H Eos # (Auto) 0.32 Baso # (Auto) 0.05 Absolute Nucleated RBC 0.03 H Nucleated RBC % (auto) 0.3 RBC Morphology Unremarkable APTT PTT Ratio Sodium Potassium Chloride Carbon Dioxide Anion Gap BUN Creatinine Est Cr Clr Drug Dosing Est GFR ( Amer) Est GFR (Non-Af Amer) BUN/Creatinine Ratio Glucose POC Glucose 194 H Calcium Phosphorus Magnesium Medications Administered Home Medications digoxin 0.125 mg PO QAM #0 07/13/16 [History Confirmed 04/26/19] furosemide 80 mg PO BID #0 07/13/16 [History Confirmed 04/26/19] omeprazole 20 mg PO QAM #0 07/13/16 [History Confirmed 04/26/19] spironolactone 12.5 mg PO QAM #0 07/13/16 [History Confirmed 04/26/19] Humulin R U-500 (Conc) Insulin 1 dose CONTINUOUS SUBCUTANEOUS INFUSION DIRECTED #0 09/22/16 [History Confirmed 04/26/19] colchicine 0.6 mg PO QAM #0 09/22/16 [History Confirmed 04/26/19] levothyroxine 200 mcg PO QAM #0 03/08/17 [History Confirmed 04/26/19] warfarin [Jantoven] 4 mg PO SUTH #0 tab 02/26/18 [History Confirmed 04/26/19] allopurinol 300 mg tablet 300 mg PO QPM 05/11/18 [History Confirmed 04/26/19] aspirin 81 mg tablet,delayed release 81 mg PO QAM 05/11/18 [History Confirmed 04/26/19] atorvastatin 10 mg tablet 10 mg PO QAM 05/11/18 [History Confirmed 04/26/19] metolazone 2.5 mg tablet 2.5 mg PO WK tab 05/11/18 [History Confirmed 04/26/19] gabapentin 100 mg PO TID 06/24/18 [History Confirmed 04/26/19] levothyroxine 50 mcg PO QAM 06/24/18 [History Confirmed 04/26/19] duloxetine 60 mg capsule,delayed release 60 mg PO QAM 08/31/18 [History Confirmed 04/26/19] metoprolol tartrate 150 mg PO QAM 11/10/18 [History Confirmed 04/26/19] bupropion HCl 150 mg PO QAM 12/29/18 [History Confirmed 04/26/19] albuterol sulfate 1 puff INHALATION Q6H PRN 04/26/19 [History Confirmed 04/26/19] cholecalciferol (vitamin D3) 2,000 unit PO DAILY 04/26/19 [History Confirmed 04/26/19] magnesium oxide 400 mg PO DAILY 04/26/19 [History Confirmed 04/26/19] metoprolol tartrate 100 mg PO HS 04/26/19 [History Confirmed 04/26/19] nystatin 1 applic TOPICAL BID PRN 04/26/19 [History Confirmed 04/26/19] sennosides [senna] 8.6 mg PO BID 04/26/19 [History Confirmed 04/26/19] warfarin 8 mg PO MOTUWEFRSA 04/26/19 [History Confirmed 04/26/19] Active Medications Allopurinol (Zyloprim) 300 mg PO QPM [facility] Stop: 05/26/19 20:59 Last Admin: 04/26/19 21:28 Dose: 300 mg Documented by: Aspirin (Aspirin Chew) 81 mg PO QAM [facility] Stop: 05/27/19 08:59 Last Admin: 04/27/19 09:32 Dose: 81 mg Documented by: Atorvastatin Calcium (Lipitor) 10 mg PO QAM [facility] Stop: 05/27/19 08:59 Bupropion HCl (Wellbutrin) 75 mg NG BID [facility] Stop: 05/29/19 10:59 Last Admin: 05/02/19 20:56 Dose: 75 mg Documented by: Dextrose (Dextrose 50%) 25 - 50 ml IV UD PRN; Protocol PRN Reason: Hypoglycemia Protocol Stop: 05/26/19 13:14 [facility]ox[facility]) [facility] Stop: 05/27/19 08:59 Last Admin: 05/02/19 09:20 Dose: 60 mg Documented by: Famotidine (Pepcid) 20 mg PO BID [facility] Stop: 05/29/19 20:59 Last Admin: 05/02/19 20:56 Dose: 20 mg Documented by: Gabapentin (Neurontin) 100 mg PO TID [facility] Stop: 05/29/19 13:59 Last Admin: 05/02/19 20:58 Dose: 100 mg Documented by: Glucagon (Glucagen) 1 mg IM UD PRN; Protocol PRN Reason: Hypoglycemia Protocol Stop: 05/26/19 13:14 Glucose (Glucose 40%) 15 - 30 gm PO UD PRN; Protocol PRN Reason: Hypoglycemia Protocol Stop: 05/26/19 13:14 Glucose (Dex4 Glucose) 4 - 8 tabs PO UD PRN; Protocol PRN Reason: Hypoglycemia Protocol Stop: 05/26/19 13:14 Insulin Human Regular 250 (units/ Sodium Chloride) 250 mls @ 2 mls/hr IV .Q24H [facility]; Protocol Stop: 05/26/19 12:59 Last Titration: 05/03/19 07:01 Dose: 2 units/hr, 2 mls/hr Documented by: Heparin Sodium/Dextrose (Heparin Sodium/Dextrose) 25,000 units in 500 mls @ 48 mls/hr IV .[id number] [facility]; Protocol Stop: 05/26/19 14:09 Last Titration: 05/03/19 07:01 Dose: 2,400 units/hr, 48 mls/hr Documented by: Furosemide 40 mg/ Syringe 4 mls @ 4 mls/min IV Q8H [facility] Stop: 05/30/19 13:59 Last Admin: 05/03/19 05:39 Dose: 4 mls/min Documented by: Digoxin 125 mcg/ Syringe 10 mls @ 2 mls/min IV DAILY@1600 [facility] Stop: 05/31/19 15:59 Last Admin: 05/02/19 15:45 Dose: 2 mls/min Documented by: Ceftriaxone Sodium 2,000 mg/ (Dextrose) 70 mls @ 140 mls/hr IV DAILY@1800 [facility]; Protocol Stop: 05/16/19 17:59 Last Infusion: 05/02/19 17:27 Dose: Infused Documented by: Insulin Aspart (Novolog Flexpen) 0 units SC ACHS [facility] Stop: 06/01/19 11:29 Last Admin: 05/02/19 21:40 Dose: Not Given Documented by: Lactulose (Chronulac) 20 gm PO DAILY [facility] Stop: 05/31/19 08:59 Last Admin: 05/02/19 08:43 Dose: 20 gm Documented by: Levothyroxine Sodium (Synthroid) 200 mcg PO DAILY@0500 [facility] Stop: 05/30/19 04:59 Last Admin: 05/03/19 05:35 Dose: 200 mcg Documented by: Levothyroxine Sodium (Synthroid) 50 mcg PO DAILY@0500 [facility] Stop: 05/30/19 04:59 Last Admin: 05/03/19 05:35 Dose: 50 mcg Documented by: Metoprolol Tartrate (Lopressor) 75 mg PO Q6 [facility] Stop: 06/01/19 21:59 Last Admin: 05/03/19 05:37 Dose: 75 mg Documented by: Miscellaneous (Carbohydrates For Hypoglycemia) 15 - 30 gm PO PRN PRN PRN Reason: Hypoglycemia Treatment Stop: 05/26/19 13:14 Miscellaneous (Icu Electrolyte Replacement Protocol) 1 ea N/A QAM [facility] Stop: 05/06/19 09:54 Last Admin: 05/02/19 09:07 Dose: 1 ea Documented by: Miscellaneous Information (Consult Glycemic Management Pharmacy) 1 ea N/A UD PRN PRN Reason: Consult Stop: 05/31/19 23:18 Nystatin (Mycostatin) 1 appln EXT BID PRN PRN Reason: Rash Stop: 05/26/19 14:09 Last Admin: 04/30/19 17:30 Dose: 1 appln Documented by: Nystatin (Mycostatin) 5 ml PO QID [facility] Stop: 05/12/19 16:59 Last Admin: 05/02/19 20:55 Dose: 5 ml Documented by: Oxycodone HCl (Roxicodone) 5 mg PO Q6 PRN PRN Reason: Pain Stop: 05/14/19 11:38 Last Admin: 05/02/19 12:39 Dose: 5 mg Documented by: Polyethylene Glycol (Miralax Powder Packet) 17 gm PO DAILY PRN PRN Reason: Constipation Stop: 05/31/19 08:31 Senna/Docusate Sodium (Senokot S) 1 tab PO QAM [facility] Stop: 05/31/19 08:59 Last Admin: 05/02/19 08:42 Dose: 1 tab Documented by: Vitamin D (Vitamin D3) 2,000 units PO DAILY [facility] Stop: 05/27/19 08:59 Last Admin: 04/27/19 09:33 Dose: 2,000 units Documented by: Warfarin Sodium (Coumadin) 8 mg PO DAILY@1600 [facility] Stop: 05/26/19 15:59 Last Admin: 04/26/19 15:39 Dose: 8 mg Documented by: PG Care Time/CCT Total # of Minutes Spent Total Time Spent with Patient: Total time spent is greater than 50% in coordination of care (as documented) at patient's floor/unit and/or counseling patient: Critical Care Time: Yes Total Critical Care Time: 35 Resident Activity Tracking Resident Involvement: Resident Care Provided Care Provided: Adult Hospital Medicine
[2019-05-03] MEDS: INSULIN ASPART 100 UNITS/ML 3 ML PEN SC SCH ×3 (07:46→20:08)
[2019-05-03] MEDS: LACTULOSE SYRUP 20 GM/30 ML UDC PO SCH (08:01)
[2019-05-03] MEDS: DULOXETINE HCL 60 MG CAP PO SCH (08:01)
[2019-05-03] MEDS: buPROPion HCl 75 MG TABLET NG SCH (08:01)
[2019-05-03] MEDS: NYSTATIN SUSP 500,000 U/5 ML UDC PO SCH ×4 (08:02→21:16)
[2019-05-03] MEDS: DOCUSATE SODIUM/SENNA 50/8.6MG TAB PO SCH ×2 (08:02→21:17)
[2019-05-03] MEDS: FAMOTIDINE 20 MG TAB PO SCH (08:02)
[2019-05-03] MEDS: GABAPENTIN 250 MG/5 ML 470 ML BTL PO SCH (08:06)
[2019-05-03] MEDS ORDERED: ENALAPRIL MALEATE 5 MG TAB PO STA (08:58)
[2019-05-03] MEDS ORDERED: DIGOXIN 250 MCG in SYRINGE 9 ML IV ONE (09:15)
[2019-05-03] MEDS: MAGNESIUM SULFATE / D5W 1 GM/100 ML BAG IV SCH ×2 (09:19→10:31)
[2019-05-03] MEDS: POTASSIUM CHLORIDE 20 MEQ/15 ML UDC PO SCH ×2 (09:19→12:59)
[2019-05-03] MEDS: ASPIRIN 81 MG CHEW PO SCH (09:20)
[2019-05-03] MEDS: ICU ELECTROLYTE REPLACEMENT PROTOCOL SCH (09:21)
[2019-05-03] MEDS: OXYCODONE HCL SOLN 5 MG/5 ML UDC PO PRN ×2 (10:02→16:24)
--- NOTE | 2019-05-03 10:15 | Surgery Progress Note ---
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 diabetes mellitus, with necrosis of muscle: 05/03/19 pod 7 Had a long discussion with the 2 daughters and explained to them present situation the main issue is try to keep the wound clean and the frequent stools are making a little bit difficult at this time There is no history that the patient had or has fecal incontinence A colostomy procedure had been raised by others taken care of the patient and I certainly at this time will try to avoid this and this was discussed with the family I feel that the wound can be probably managed with frequent dressing changes and once his frequent stools subside I think that may be only necessary once or twice a day I discussed patient with Dr. Ortiz who was by earlier to see patient. Wound care + nursing changed dressing today, so we will be by again tomorrow to re- assess wound. Picture of wound from today is in patient's chart. At this time we do not plan on proceeding with a diverting colostomy. Recommend continuing wet-to-dry dressing changes with NS, 4x4 gauze, ABD, and medipore tape. Physical Exam Physical Exam: The patient was in the right lateral position the nurses just repacked the wound I am packed the area and look at the wound itself and look much smaller than last seen approximately 3 days postop the perianal tissue is intact the edge of the wound extends into the gluteal fold and this may be a reason where a back system may not be sufficient to seal off the area The wound itself had some liquid stool yellow in nature that the nurses report has been rather frequently lately and may be associated with lactulose Results & Data Vital Signs (Past 12 Hours) Vital Signs Temp Pulse Pulse Resp BP Pulse Ox 05/03/19 09:20 93 H 05/03/19 06:00 36.9 C 123 H 95 H 92/52 L 95 05/03/19 04:00 37.1 C 113 H 23 94/50 L 96 05/03/19 03:22 84 18 94 05/03/19 03:00 87 20 94/50 L 96 05/03/19 02:00 37.1 C 90 19 107/64 96 05/03/19 01:00 36.9 C 90 24 101/67 98 05/02/19 23:00 36.7 C 78 27 H 115/67 100 PG Care Time/CCT Total # of Minutes Spent Total Time Spent with Patient: Total time spent is greater than 50% in coordination of care (as documented) at patient's floor/unit and/or counseling patient:
[2019-05-03] MEDS: ATORVASTATIN 10 MG TAB PO SCH (11:10)
[2019-05-03] MEDS: CHOLECALCIFEROL 1,000 UNITS TAB PO SCH (11:10)
--- NOTE | 2019-05-03 11:53 | Pharmacy Report ---
Pharmacy Glycemic Short Note 2 - Date of Service May 03, 2019 - Glycemic Short BSG Results (Last 24 hours): 05/02/19 05/02/19 05/02/19 11:54 12:56 13:59 Glucose POC Glucose 281 H 265 H 266 H 05/02/19 05/02/19 05/02/19 15:06 15:50 17:23 Glucose POC Glucose 253 H 230 H 203 H 05/02/19 05/02/19 05/02/19 18:33 19:37 21:02 Glucose POC Glucose 219 H 145 H 145 H 05/02/19 05/02/19 05/02/19 22:02 23:07 23:54 Glucose POC Glucose 129 H 124 H 107 H 05/03/19 05/03/19 05/03/19 01:04 02:03 03:02 Glucose POC Glucose 104 H 99 107 H 05/03/19 05/03/19 05/03/19 03:56 04:19 07:40 Glucose 150 H POC Glucose 111 H 194 H 05/03/19 05/03/19 05/03/19 09:07 10:07 11:06 Glucose POC Glucose 264 H 284 H 273 H Outpatient Anti-diabetic Regimen: U-500 insulin pump * Per outpatient data obtained from previous admission in June 2018 * Total daily outpatient basal dose is ~70 units/day *of U-500* which is equivalent to about 350 units/day of U-100 insulin * Non-adherence noted - patient often forgets to provide additional bolus doses for prandial coverage A1c = 9.5 % on 04/27/19 The patient is currently receiving: * Insulin drip * Was held for a short time overnight 2nd BSG as low as 99 mg/dL then appropriately resumed at 2 units/hr * BSG's this AM significantly increasing and have been consistently above 180 mg/dL since 07. Drip has been titrated up and is now up to 4.9 units/hr Risk Factors for Insulin Resistance: * Infection: MSSA bacteremia 2nd SSTI * IVF: heparin drip mixed in dextrose @ 48 mL/hr * Diet: T2DM ASSESSMENT: * 69 yo M with poorly controlled T2DM based on A1c despite significant outpatient insulin (>300 units U-100 equivalents) managed as an outpatient on U-500 insulin pump * Patient currently in ICU and has been on an insulin drip for many days. Transition to SQ insulin was delayed until patient eating, as U-500 must be used and has both prandial and basal coverage. Patient at 30 g CHO with breakfast today. Anticipate starting U-500 insulin with lunch and attempt to transition off of insulin drip and continue TIDM. * Inpatient data from previous admission June 2018 where patient was ordered diet indicates that U-500 requirements as an inpatient also exceed 300 units of U-100 insulin equivalents. However, patient is prone to AM fasting hypoglycemia despite U-500 being inadequate to maintain post-prandial BSG's in goal range. This is also consistent with the patient's current IV insulin requirements which substantially decrease overnight but then substantially increase in AM * Will be conservative with U-500 dose at this time as po intake has just been resumed today and therefore is somewhat uncertain. Patient only consumed 30 g with lunch and 12 g with dinner per Celeste (RN). * Criteria for insulin drip transition (below). * Once insulin drip is stopped, will start Novolog ACHS and 0000,0400. * Plan for very tight correction factor * Will also have a CHO ratio *BUT* this is only meant to ensure CHO counts are documented and is not meant to provide significant/any insulin. Therefore CHO ratio will be extraordinarily loose. Plan * U-500 SC TIDM - doses to be determined based on insulin drip rate and BSG's * 40 units x1 to be given with lunch today * Novolog ACHS while on insulin drip * Carb ratio: 50 (fifty) g CHO/unit * Continue insulin drip, severe stress protocol. Change goal range to 140-180 to help facilitate decrease dose/discontinuation. May transition off later today, depending on insulin drip requirements and BSG trend * Criteria for insulin drip discontinuation * Must be after 1630 today * Most recent drip rate less than 2 units/hr * BSG's below 180 mg/dL x2 consecutive checks at least 2 hours apart] To be started after insulin drip is discontinued based on above criteria * Novolog ACHS * Goal 120-150 mg/dL * Correction factor: 8 (eight) mg/dL/unit * Carb ratio: 50 (fifty) g CHO/unit * Novolog 0000,0400 * Goal 140-180 mg/dL * Correction factor: 15 (fifteen) mg/dL/unit * Carb ratio: 50 g (fifty) g CHO/unit
--- NOTE | 2019-05-03 12:54 | Cardiology Progress Note ---
Date of Service May 03, 2019 Assessment & Plan (1) Gram positive sepsis: Clinically improving. Continue IV antibiotics. (2) Pulmonary vascular congestion: Continue current dose of IV furosemide, intake and output has been even for the last 2 days. Monitor creatinine per (3) Atrial fibrillation with RVR: Rate improved. Continue oral metoprolol, transitioned digoxin to oral dose. Continue unfractioned heparin for stroke prophylaxis as well as DVT prophylaxis. When his procedural plan is more certain, we will add back his Coumadin. Subjective Chief complaint: Follow-up atrial fibrillation, venous congestion on chest x-ray Subjective: Patient appears much improved. He is only on nasal cannula today, and is mentating well, and conversant. Review of Systems Review of Systems: All systems reviewed & are unremarkable except as noted in HPI & below Physical Exam Physical Exam: Temp Pulse Resp BP Pulse Ox 36.9 C 120 H 22 102/65 96 05/03/19 06:00 05/03/19 10:19 05/03/19 10:19 05/03/19 10:19 05/03/19 10:19 Constitutional: + morbidly obese No acute distress, markedly improved Respiratory: normal respiratory effort, lungs clear to auscultation Cardiovascular: Rate/Rhythm: regular rate Heart Sounds: no murmur Vessels: no JVD Extremities: no edema Gastrointestinal (Abdomen): normal bowel sounds, soft, nontender, no hepatosplenomegaly Neurologic: PERRL, EOMI, accommodation nl, no face palsy, no dysarthria Results & Data Vital Signs (Past 12 Hours) Vital Signs Temp Pulse Pulse Resp BP BP Pulse Ox 05/03/19 10:19 120 H 22 102/65 96 05/03/19 09:20 93 H 05/03/19 08:01 94 H 27 H 106/64 97 05/03/19 06:00 36.9 C 123 H 95 H 92/52 L 95 05/03/19 04:00 37.1 C 113 H 23 94/50 L 96 05/03/19 03:22 84 18 94 05/03/19 03:00 87 20 94/50 L 96 05/03/19 02:00 37.1 C 90 19 107/64 96 05/03/19 01:00 36.9 C 90 24 101/67 98
[2019-05-03 13:11] LABS: Partial Thromboplastin Ratio 1.8
[2019-05-03] MEDS ORDERED: OXYCODONE HCL IR 5 MG TAB (IMMEDIATE RELEASE) PO STA (13:17)
[2019-05-03 13:28] LABS: Partial Thromboplastin Time 47.8 Seconds (21.0-31.0)
[2019-05-03] MEDS: GABAPENTIN 100 MG CAP PO SCH ×2 (13:55→21:16)
--- NOTE | 2019-05-03 14:00 | Hospitalist Progress Note ---
Date of Service May 03, 2019 Assessment & Plan (1) Sepsis: sepsis secondary to bacteremia from Staphylococcus aureus likely from necrosis of right buttock ulceration -69-year-old male with diabetes admitted with mild DKA, acute kidney injury, and severe sepsis likely secondary to deep soft tissue infection. Status post urgent debridement on 04/27/19 He currently remains intubated -patient was initially on Vancomycin with Zosyn but cultures returning as MSSA so need for MRSA coverage and vanocomycin can be stopped on 04/28/19 -04/29/19: discussed with Infectious Disease Dr. Pineda who recommends to continue Zosyn for now -Patient was extubated on 05/01/19. -05/02/19: Patient on oxymask and continues to be in atrial fibrillation with rapid ventricular response. Patient's daughter at bedside. We discussed examining the patient's buttock area when wound care arrives to see progress of wound healing. we discussed if there are concerns about wound healing and if wound vac was not an option, then potentially general surgery can advise for possible diverting colostomy. Patient's daughter obviously concerned about surgical risks of ostomy in regards to overall health condition. Patient was awake and verbal during physical exam but he could not participate actively in health care conversation because of lethargy. patient did not report of acute pain and no other symptoms but this is mostly due to the lethargy -05/03/19: as per general surgery notes, there are not plans for ostomy at this time. as per ICU physician patient may be transferred out of ICU. patient's right buttock wounds will be evaluated when patient goes to a PCU telemetry bed (2) Lactic acidosis: -admission lactic acid 6.6 -lactic acidosis has resolved (3) Decubitus ulcer: -Present on admission of necrosis of right buttock ulceration -Operation Date: 04/26/19: s/p Debridement necrotic right buttock ulceration; drainage of perirectal abscess; incision of thrombosed hemorrhoid -management of ulcers as above in regards to sepsis management (4) Atrial fibrillation with RVR: -secondary to sepsis and metabolic derangements -on metoprolol q6 hours with daily digoxin -on IV heparin most as stroke prevention. -because it is was unclear as to further surgical interventions for the patient, home dose coumadin was not restarted during ICU stay but coumadin 8 mg daily has been ordered by ICU physician on 05/03/19 -will continue coumadin with IV hepaerin for now (5) Elevated troponin: -elevated troponins on this admission from demand ischemia due to to sepsis and atrial fibrillation with rapid ventricular response -on IV heparin -echocardiogram on 04/28/19 was not well visualized. 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 (7) Pacemaker: -Pacemaker in place and functioning appropriately as per cardiology evaluation (8) Chronic diastolic CHF (congestive heart failure): History of Non ischemic Cardiomyopathy in the past -Echo 11/2018: Mildly reduced EF, grade 1 diastolic dysfunction -IV Lasix was started on 04/29/19 as patient had multiple IV medications given during ICU stay to date and to help with outputs -IV Lasix is continued as IV 40 mg IV TID from 04/30/19 to 05/03/19, will hold off further IV diuresis with Lasix until re-assessment of volume status and blood pressures when patient is transferred out from ICU to PCU telemtry (9) Acute kidney injury superimposed on CKD: -peak creatinine during hospital stay of 2.99 by 04/27/19 -currently the creatine is 1.25 as of 04/30/19 and shows resolution of acute kidney injury -creatinine is 1.1 as of 05/03/19 (10) CKD (chronic kidney disease) stage 3, GFR 30-59 ml/min: -Baseline creatinine should be around 1.3 Rhabdomyolysis -creatinine kinase peaked above 3000 on 04/28/19 likely from continued muscle breakdown products and recent buttock ulcer debridement -current level of creatinine kinase on 04/30/19 is 1055 which shows resolving rhabdomyolysis Hypokalemia Hypomagnesemia Hypophosphatemia -serum potassium is adequate today, target serum potassium between 3.5 to 4 -patient receiving magnesium and phosphorous supplements in the ICU -target serum magnesium is 2 -ideal serum phosphorous should be close to 4 (11) Diabetes mellitus, type 2: Type 2 diabetes mellitus with termite treater helper current use of insulin and with hyperglycemia Mild Diabetic Ketoacidosis -Patient presenting from home with generalized weakness and frequent falls for the past 3 days prior to admission with insulin pump became disconnected at some point in time throughout the night and patient was unable to reconnect -has been on insulin drip since admission and management of diabetes as per pharmacy glycemic consult Transaminitis -04/26/19 liver ultrasound Exam is compromised suboptimal penetration. The liver is enlarged and echogenic. Pancreas is obscured by overlying bowel gas. Caliber of the common bile duct is at the upper limits of normal following cholecystectomy, measuring 7 mm. There is a small fluid-filled structure within the cholecystectomy bed which may reflect a small gallbladder remnant. There is no right hydronephrosis -AST has improved to be in the 100s -monitor liver function enzymes (12) Hypothyroidism: -continue levothyroxine (13) COPD, moderate: management as per ICU physician (14) SALAS (obstructive sleep apnea): -CPAP as per home settings as tolerated (15) History of pulmonary embolism: -History of pulmonary embolism in the past continue home dose gabapentin, buproprion, duloxetine (16) DVT prophylaxis: -On IV heparin with coumadin to be resumed on 05/03/19 daughter Bing [phone] daughter Tatyana sister Enrike [phone] Subjective Patient is more awake and alert than previously seen by hospitalist. He is able to answer basic questions but does not have a good idea about what is going on with his health. No acute distress. on nasal cannula oxygen. continues to have tachycardia with atrial fibrillation but heart rates are better than previous days. continues to have bagley. as per ICU physician patient may be transferred out of ICU. patient's right buttock wounds will be evaluated when patient goes to a PCU telemetry bed Physical Exam Constitutional: + obese Eyes: PERRL, conjunctivae normal, anicteric sclerae ENMT: external ear and nose normal, oropharynx normal Neck: normal visual inspection Respiratory: normal respiratory effort Cardiovascular: Rate/Rhythm: + tachycardic and + irregularly irregular Gastrointestinal (Abdomen): normal bowel sounds, soft, nontender, no hepatosplenomegaly Musculoskeletal: Head/Neck/Chest: normocephalic and head atraumatic Neurologic: PERRL, EOMI, accommodation nl, no face palsy, no dysarthria Psychiatric: Orientation: alert and cooperative Genitourinary: + penis abnormality (bagley) Results & Data Vital Signs (Past 12 Hours) Vital Signs Temp Pulse Pulse Resp BP BP Pulse Ox 05/03/19 10:19 120 H 22 102/65 96 05/03/19 09:20 93 H 05/03/19 08:01 94 H 27 H 106/64 97 05/03/19 06:00 36.9 C 123 H 95 H 92/52 L 95 05/03/19 04:00 37.1 C 113 H 23 94/50 L 96 05/03/19 03:22 84 18 94 05/03/19 03:00 87 20 94/50 L 96 05/03/19 02:00 37.1 C 90 19 107/64 96 (1) Diabetes mellitus, type 2 Diabetes mellitus termite treater helper insulin use: with penitentiary use Diabetes mellitus complication status: with kidney complications Diabetes mellitus complication detail: with chronic kidney disease Chronic kidney disease stage: stage 3 (moderate) Qualified Code(s): E11.22 - Type 2 diabetes mellitus with diabetic chronic kidney disease; N18.3 - Chronic kidney disease, stage 3 (moderate); Z79.4 - alf (current) use of insulin (2) Hypothyroidism Hypothyroidism type: unspecified Qualified Code(s): E03.9 - Hypothyroidism, unspecified
[2019-05-03] MEDS: WARFARIN SOD 4 MG TAB PO SCH (16:20)
[2019-05-03] MEDS: DIGOXIN 0.125 MG TAB PO SCH (16:25)
[2019-05-03] MEDS: cefTRIAXone SODIUM 2,000 MG in DEXTROSE 5% 50 ML IV SCH (17:30)
[2019-05-03] MEDS ORDERED: buPROPion HCl 75 MG TABLET PO SCH (21:00)
[2019-05-03] MEDS: allopurinoL 300 MG TAB PO SCH (21:18)
[2019-05-04] MEDS: METOPROLOL TARTRATE 50 MG TAB PO SCH ×5 (00:10→23:53)
[2019-05-04] MEDS: HEPARIN SODIUM/DEXTROSE 25,000 UNITS/500 ML BAG IV SCH ×3 (00:47→21:45)
[2019-05-04] MEDS: LEVOTHYROXINE SODIUM 200 MCG TABLET PO SCH (06:16)
[2019-05-04] MEDS: LEVOTHYROXINE SODIUM 50 MCG TABLET PO SCH (06:16)
--- NOTE | 2019-05-04 06:53 | XRay Report ---
XR chest 1V portable CLINICAL HISTORY: SOB dyspnea COMPARISON STUDY: 05/02/2019 FINDINGS: Improving components of pulmonary edema/congestive failure. Cardiac size remains enlarged. Diminished prominence of the pulmonary vasculature. IMPRESSION: Improving congestive heart failure/pulmonary edema. The above report was generated using voice recognition software. It may contain grammatical, syntax or spelling errors. Electronically signed by: Jcarlos Petersen M.D. 05/04/2019 6:52 AM
[2019-05-04 07:28] LABS: Hematocrit (blood only) 37.6 % (42-52); Hemoglobin 12.4 g/dL (14.0-18.0); Mean Corpuscular Hemoglobin 30.4 pg (25-34); Mean Corpuscular Volume 92.2 fL (80-100); Mean Platelet Volume 10.3 fL (7.4-10.4); Platelet Count 198 K/uL (130-400); RDW Coefficient of Variation 15.5 % (11.5-14.5); RDW Standard Deviation 52.3 fL (36.4-46.3); Red Blood Count 4.08 M/uL (4.7-6.1); White Blood Count 12.01 K/uL (4.8-10.8)
[2019-05-04 07:47] LABS: INR 1.2 (0.9-1.1); Partial Thromboplastin Ratio 2.4; Prothrombin Time 11.7 Seconds (9.0-12.0)
[2019-05-04 07:50] LABS: Partial Thromboplastin Time 66.3 Seconds (21.0-31.0)
[2019-05-04 07:56] LABS: Basophils # (auto) 0.03 K/uL (0-0.2); Basophils % (auto) 0.2 %; Eosinophils # (auto) 0.22 K/uL (0-0.5); Eosinophils % (auto) 1.8 %; Immature Granulocytes # (auto) 0.63 K/uL (0.00-0.02); Immature Granulocytes % (auto) 5.2 %; Lymphocytes # (auto) 1.21 K/uL (1.2-3.4); Lymphocytes % (auto) 10.1 %; Monocytes # (auto) 0.77 K/uL (0.11-0.59); Monocytes % (auto) 6.4 %; Neutrophils # (auto) 9.15 K/uL (1.4-6.5); Neutrophils % (auto) 76.3 %
[2019-05-04] MEDS: INSULIN ASPART 100 UNITS/ML 3 ML PEN SC SCH ×5 (08:21→23:53)
[2019-05-04] MEDS: BuPROPion XL 150 MG TABCR PO SCH (08:23)
[2019-05-04] MEDS: GABAPENTIN 100 MG CAP PO SCH ×3 (08:23→21:43)
[2019-05-04] MEDS: ATORVASTATIN 10 MG TAB PO SCH (08:24)
[2019-05-04] MEDS: DULOXETINE HCL 60 MG CAP PO SCH (08:24)
[2019-05-04] MEDS: CHOLECALCIFEROL 1,000 UNITS TAB PO SCH (08:24)
[2019-05-04] MEDS: PANTOprazole 40 MG TAB PO SCH (08:24)
[2019-05-04] MEDS: NYSTATIN SUSP 500,000 U/5 ML UDC PO SCH ×4 (08:26→21:42)
[2019-05-04] MEDS: ASPIRIN 81 MG CHEW PO SCH (08:26)
--- NOTE | 2019-05-04 09:12 | Surgery Progress Note ---
Date of Service May 04, 2019 Assessment & Plan (1) Diabetic ulcer of right buttock associated with type 2 diabetes mellitus, with necrosis of muscle: 05/04/19 POD#8 Per history sounds like patient's BM's are more formed since the d/c of lactulose Recommend continuing daily and PRN dressing changes to buttock wound to ensure it stays clean, especially after bowel movements. Wet-to-dry dressing with moist saline gauze vs kerlex, covered with ABD, and tape. No plans for further surgical intervention at this time We will continue to follow along Subjective Patient states he has no complaints from overnight. Says his buttock wound is not bothering him at the moment and that the pain has been tolerable during dressing changes. I also spoke to nursing who through hand-off was told patient had ~2BM's overnight that have been more formed. Physical Exam Physical Exam: sleepy, but easily arousable and conversive Constitutional: no acute distress Results & Data Vital Signs (Past 12 Hours) Vital Signs Temp Pulse Pulse Resp BP Pulse Ox 05/04/19 06:18 83 121/58 L 05/04/19 03:51 75 23 95 05/04/19 03:25 36.8 C 70 20 125/68 91 05/04/19 00:00 37.4 C 76 20 127/76 92 05/03/19 23:30 80 24 95 PG Care Time/CCT Total # of Minutes Spent Total Time Spent with Patient: Total time spent is greater than 50% in coordination of care (as documented) at patient's floor/unit and/or counseling patient:
[2019-05-04] MEDS: DOCUSATE SODIUM/SENNA 50/8.6MG TAB PO SCH ×2 (09:23→21:44)
[2019-05-04] MEDS: MAGNESIUM OXIDE 400 MG TAB PO SCH (09:23)
[2019-05-04] MEDS ORDERED: INSULIN ASPART 100 UNITS/ML 3 ML PEN SQ ONE (09:30)
[2019-05-04] MEDS ORDERED: INSULIN GLARGINE 100 UNIT/ML VIAL SC ONE ×2 (09:30→21:00)
--- NOTE | 2019-05-04 09:48 | Pharmacy Report ---
Pharmacy Glycemic Short Note 2 - Date of Service May 04, 2019 - Glycemic Short BSG Results (Last 24 hours): 05/03/19 05/03/19 05/03/19 10:07 11:06 12:16 POC Glucose 284 H 273 H 273 H 05/03/19 05/03/19 05/03/19 13:03 14:01 15:05 POC Glucose 282 H 284 H 283 H 05/03/19 05/03/19 05/03/19 16:07 17:10 18:04 POC Glucose 207 H 143 H 158 H 05/03/19 05/03/19 05/03/19 18:59 20:05 22:01 POC Glucose 153 H 140 H 84 05/03/19 05/03/19 05/03/19 22:31 22:59 23:30 POC Glucose 73 78 76 05/04/19 05/04/19 05/04/19 00:03 00:32 01:04 POC Glucose 81 75 72 05/04/19 05/04/19 05/04/19 01:34 02:01 02:31 POC Glucose 70 80 73 05/04/19 05/04/19 05/04/19 03:03 04:12 05:02 POC Glucose 73 86 106 H 05/04/19 05/04/19 05/04/19 06:07 07:01 08:17 POC Glucose 102 H 108 H 155 H Outpatient Anti-diabetic Regimen: U-500 insulin pump * Per outpatient data obtained from previous admission in June 2018 * Total daily outpatient basal dose is ~70 units/day *of U-500* which is equivalent to about 350 units/day of U-100 insulin * Non-adherence noted - patient often forgets to provide additional bolus doses for prandial coverage A1c = 9.5 % on 04/27/19 The patient is currently receiving: * Insulin drip * Was held for a short time overnight 2nd BSG as low as 99 mg/dL then appropriately resumed at 2 units/hr * BSG's this AM significantly increasing and have been consistently above 180 mg/dL since 739. Drip has been titrated up and is now up to 4.9 units/hr Risk Factors for Insulin Resistance: * Infection: MSSA bacteremia 2nd SSTI * IVF: heparin drip mixed in dextrose @ 48 mL/hr * Diet: T2DM ASSESSMENT: 10/23 * Patient was transitioned off the insulin drip yesterday back to a SQ regimen * U-500 insulin was administered twice yesterday, 40units per dose. Only 80 units of SQ insulin administered in total yesterday. * BSGs did trend down into the 70's overnight, most likely due to excess U-500 insulin in the setting of poor PO intake * Given the fact the patient's PO intake is questionable and U-500 insulin dose have a significant peak when administered, will convert to Lantus + Novolog initially - until the patient establishes that his PO intake is more consistent. * I do anticipate the need to resume U500 insulin as he improve clinically. Plan * Hold U-500 insulin * Lantus 50 units SQ x 1 this AM * Lantus Q HS per the following scale: * BSG less than 140: 0 units * BSG 140-200: 10 units * BSG above 200: 20 units * Novolog ACHS * Goal 110-140 mg/dL * Correction factor: 10 (eight) mg/dL/unit * Carb ratio: 1 unit per 4gm CHO consumed
[2019-05-04] MEDS ORDERED: POTASSIUM CHLORIDE 20 MEQ TABCR PO STA (11:43)
--- NOTE | 2019-05-04 11:47 | Cardiology Progress Note ---
Date of Service May 04, 2019 Assessment & Plan (1) Atrial fibrillation with rapid ventricular response: Rate control: oral metoprolol and oral digoxin. Stroke prevention: heparin to coumadin. (2) Chronic diastolic CHF (congestive heart failure): resume CORE WORKER dose of furosemide 80 mg BID. Supplement potassium. Subjective Feels well. No complaints. No on the telemetry floor. Mentating well. Telemetry reveals AF 80-90 bpm. Review of Systems Review of Systems: All systems reviewed & are unremarkable except as noted in HPI & below Physical Exam Physical Exam: Temp Pulse Resp BP Pulse Ox 36.8 C 79 23 121/58 L 95 05/04/19 03:25 05/04/19 09:13 05/04/19 03:51 05/04/19 06:18 05/04/19 03:51 Constitutional: + morbidly obese Respiratory: normal respiratory effort, lungs clear to auscultation Cardiovascular: Rate/Rhythm: + irregularly irregular Heart Sounds: no murmur Vessels: no JVD Extremities: no edema Gastrointestinal (Abdomen): normal bowel sounds, soft, nontender, no hepatosplenomegaly Neurologic: PERRL, EOMI, accommodation nl, no face palsy, no dysarthria Results & Data Vital Signs (Past 12 Hours) Vital Signs Temp Pulse Pulse Resp BP Pulse Ox 05/04/19 09:13 79 05/04/19 06:18 83 121/58 L 05/04/19 03:51 75 23 95 05/04/19 03:25 36.8 C 70 20 125/68 91 05/04/19 00:00 37.4 C 76 20 127/76 92
[2019-05-04] MEDS ORDERED: DIGOXIN 0.125 MG TAB PO SCH (16:00)
[2019-05-04] MEDS: WARFARIN SOD 4 MG TAB PO SCH (17:37)
[2019-05-04] MEDS: DIGOXIN 0.125 MG TAB PO SCH (17:38)
--- NOTE | 2019-05-04 17:45 | Hospitalist Progress Note ---
Date of Service May 04, 2019 Assessment & Plan (1) Sepsis: Severe Sepsis Staph aureus bacteremia Right buttock ulceration/necrosis S/P urgent debridement on 04/27/19 S/P Extubation on 05/01/19 Blood Cultures from 04/26/2019: Staph aureus--MSSA Wound culture: Staph aureus Repeat blood cultures from 04/29/2019: No growth to date IV vancomycin, Zosyn transitioned to ceftriaxone Appreciate global compensation analyst, ID, Surgery Input Needs to continue Rocephin 2 g IV daily for 4 weeks Needs weekly CBC, CMP, ESR while on antibiotics No further surgical intervention planned as per surgery Continue wound care: Wet to dry dressing with moist saline gauze Vs Kerflex Acute kidney injury on CKD III Likely ATN secondary to sepsis Creatinine levels back to baseline Monitor renal function Avoid nephrotoxic agents as able (2) Lactic acidosis: Admission lactic acid 6.6 lactic acidosis resolved (3) Decubitus ulcer: Present on admission of necrosis of right buttock ulceration Operation Date: 04/26/19: s/p Debridement necrotic right buttock ulceration; drainage of perirectal abscess; incision of thrombosed hemorrhoid management of ulcers as above (4) Atrial fibrillation with RVR: secondary to sepsis and metabolic derangements Continue metoprolol, digoxin On IV heparin, Coumadin for anticoagulation Monitor INR:1.2 (5) Elevated troponin: Elevated troponins on this admission from demand ischemia due to to sepsis and atrial fibrillation with rapid ventricular response Echocardiogram on 04/28/19 was not well visualized Denies Angina symptoms (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 (7) Pacemaker: Pacemaker in place and functioning appropriately as per cardiology evaluation (8) Chronic diastolic CHF (congestive heart failure): H/O Non ischemic Cardiomyopathy Echo 11/2018: Mildly reduced EF, grade 1 diastolic dysfunction Continue Lasix 80 mg twice daily Monitor volume status (9) Acute kidney injury superimposed on CKD: Management as above (10) CKD (chronic kidney disease) stage 3, GFR 30-59 ml/min: Rhabdomyolysis CK: creatinine kinase peaked above 3000 CK levels trended down Hypokalemia Hypomagnesemia Hypophosphatemia Replace electrolytes as needed (11) Diabetes mellitus, type 2: Type 2 diabetes mellitus with exterminator helper termite current use of insulin and with hyperglycemia Mild Diabetic Ketoacidosis Patient presenting from home with generalized weakness and frequent falls for the past 3 days prior to admission with insulin pump became disconnected at some point in time throughout the night and patient was unable to reconnect Appreciate pharmacy glycemic consult Continue Insulin Therapy Transaminitis 04/26/19 liver ultrasound Exam is compromised suboptimal penetration. The liver is enlarged and echogenic. Pancreas is obscured by overlying bowel gas. Caliber of the common bile duct is at the upper limits of normal following cholecystectomy, measuring 7 mm. There is a small fluid-filled structure within the cholecystectomy bed which may reflect a small gallbladder remnant. There is no right hydronephrosis LFTs improved monitor (12) Hypothyroidism: continue levothyroxine (13) COPD, moderate: Stable (14) SALAS (obstructive sleep apnea): CPAP QHS (15) History of pulmonary embolism: H/O PE H/O Depression continue home meds Nocturnal hypoxemia On 2 L of oxygen at bedtime as per patient Continue supplemental oxygen as needed Morbid Obesity BMI:53 (16) DVT prophylaxis: On IV heparin and coumadin Code Status Full Code Family Contact: daughter Bing [phone] daughter Tatyana sister Enrike [phone] Subjective Patient is seen and examined at bedside Offers no complaints today Denies any pain of right buttock wound Also denies any chest pain, shortness of breath, dizziness, nausea, abdominal pain On heparin GGT Review of Systems Review of Systems: All systems reviewed & are unremarkable except as noted in HPI & below Physical Exam Physical Exam: Physical Exam: Vitals signs as noted above General Appearance:Morbidly Obese, no apparent distress Head: normocephalic, Atraumatic Eyes: normal inspection, EOMI Neck: supple, Trachea midline Respiratory/Chest: Normal breath sounds, CTA Cardiovascular: S1, S2, No murmur Abdomen/GI:Soft, Non tender, Bowel sounds present Extremities/Musculoskelatal:normal inspection, chronic venous stasis changes lower extremities, edema Neurologic/Psych:AAOX3, grossly no focal neurological deficits Skin: normal color, warm, R buttock wound in dressing Results & Data Vital Signs (Past 12 Hours) Vital Signs Temp Pulse Pulse Resp BP Pulse Ox 05/04/19 15:35 68 05/04/19 15:32 106 H 05/04/19 15:01 36.6 C 82 20 124/83 93 05/04/19 11:50 37.0 C 89 18 106/64 92 10/23/19 09:13 79 05/04/19 06:18 83 121/58 L Laboratory Results Short CBC 05/04/19 Range/Units 07:15 WBC 12.01 H (4.8-10.8) K/uL Hgb 12.4 L (14.0-18.0) g/dL Hct 37.6 L (42-52) % Plt Count 198 (130-400) K/uL (1) Diabetes mellitus, type 2 Diabetes mellitus exterminator helper termite insulin use: with alf use Diabetes mellitus complication status: with kidney complications Diabetes mellitus complication detail: with chronic kidney disease Chronic kidney disease stage: stage 3 (moderate) Qualified Code(s): E11.22 - Type 2 diabetes mellitus with diabetic chronic kidney disease; N18.3 - Chronic kidney disease, stage 3 (moderate); Z79.4 - terminal superintendent (current) use of insulin (2) Hypothyroidism Hypothyroidism type: unspecified Qualified Code(s): E03.9 - Hypothyroidism, unspecified
[2019-05-04] MEDS: FUROSEMIDE 80 MG TAB PO SCH (17:46)
[2019-05-04] MEDS: cefTRIAXone SODIUM 2,000 MG in DEXTROSE 5% 50 ML IV SCH (19:08)
[2019-05-04] MEDS: allopurinoL 300 MG TAB PO SCH (21:43)
[2019-05-05] MEDS: INSULIN ASPART 100 UNITS/ML 3 ML PEN SC SCH ×5 (04:13→21:19)
[2019-05-05] MEDS: LEVOTHYROXINE SODIUM 50 MCG TABLET PO SCH (04:13)
[2019-05-05] MEDS: LEVOTHYROXINE SODIUM 200 MCG TABLET PO SCH (04:13)
[2019-05-05] MEDS: METOPROLOL TARTRATE 50 MG TAB PO SCH ×3 (06:16→18:07)
[2019-05-05 06:28] LABS: Basophils # (auto) 0.03 K/uL (0-0.2); Basophils % (auto) 0.3 %; Eosinophils # (auto) 0.11 K/uL (0-0.5); Hemoglobin 11.1 g/dL (14.0-18.0); Immature Granulocytes % (auto) 2.8 %; Lymphocytes # (auto) 0.98 K/uL (1.2-3.4); Mean Corpuscular Hemoglobin 29.8 pg (25-34); Mean Corpuscular Hgb Conc 31.7 g/dL (32-36); Mean Corpuscular Volume 94.1 fL (80-100); Mean Platelet Volume 10.7 fL (7.4-10.4); Monocytes # (auto) 0.71 K/uL (0.11-0.59); Monocytes % (auto) 6.5 %; Neutrophils # (auto) 8.76 K/uL (1.4-6.5); Neutrophils % (auto) 80.4 %; Platelet Count 219 K/uL (130-400); RDW Coefficient of Variation 15.7 % (11.5-14.5); RDW Standard Deviation 54.3 fL (36.4-46.3); Red Blood Count 3.72 M/uL (4.7-6.1); White Blood Count 10.89 K/uL (4.8-10.8)
[2019-05-05 06:57] LABS: INR 1.6 (0.9-1.1); Partial Thromboplastin Ratio 2.9; Prothrombin Time 15.8 Seconds (9.0-12.0)
[2019-05-05 07:03] LABS: Partial Thromboplastin Time 77.7 Seconds (21.0-31.0)
[2019-05-05 07:05] LABS: BUN Creatinine Ratio 22.8 (10-20); Creatinine Clr Calc Pharmacy 99.7 ml/min; Est GFR (African American) 80.1; Est GFR (Non-African American) 69.1; Magnesium 2.1 mg/dl (1.8-2.4); Potassium 3.8 mmol/L (3.5-5.1)
[2019-05-05] MEDS: ATORVASTATIN 10 MG TAB PO SCH (07:53)
[2019-05-05] MEDS: CHOLECALCIFEROL 1,000 UNITS TAB PO SCH (07:53)
[2019-05-05] MEDS: DULOXETINE HCL 60 MG CAP PO SCH (07:54)
[2019-05-05] MEDS: BuPROPion XL 150 MG TABCR PO SCH (07:54)
[2019-05-05] MEDS: PANTOprazole 40 MG TAB PO SCH (07:54)
[2019-05-05] MEDS: NYSTATIN SUSP 500,000 U/5 ML UDC PO SCH ×4 (07:55→21:14)
[2019-05-05] MEDS: GABAPENTIN 100 MG CAP PO SCH ×3 (07:55→21:15)
[2019-05-05] MEDS: POTASSIUM CHLORIDE 10 MEQ TABCR PO SCH (07:55)
[2019-05-05] MEDS: MAGNESIUM OXIDE 400 MG TAB PO SCH (07:55)
[2019-05-05] MEDS: HEPARIN SODIUM/DEXTROSE 25,000 UNITS/500 ML BAG IV SCH ×2 (08:02→21:57)
[2019-05-05] MEDS: ASPIRIN 81 MG CHEW PO SCH (08:59)
[2019-05-05] MEDS: DOCUSATE SODIUM/SENNA 50/8.6MG TAB PO SCH ×2 (08:59→21:18)
[2019-05-05] MEDS: FUROSEMIDE 80 MG TAB PO SCH ×2 (09:16→17:25)
--- NOTE | 2019-05-05 11:46 | Cardiology Progress Note ---
Date of Service May 05, 2019 Assessment & Plan (1) Atrial fibrillation with rapid ventricular response: Converted to sinus rhythm 05/04/2019 at 1811. Continue current dose of metoprolol and digoxin. Continue heparin bridge, INR 1.6, continue Coumadin load. (2) Diastolic CHF: Prior to hospital dose of oral furosemide initiated yesterday. Kidney function electrolytes stable. Subjective Chief complaint: Follow-up atrial fibrillation Subjective: Patient feeling well. Telemetry documents that he converted from atrial fibrillation back to sinus rhythm yesterday 05/04/2019 at 1811. Review of Systems Review of Systems: All systems reviewed & are unremarkable except as noted in HPI & below Physical Exam Physical Exam: Temp Pulse Resp BP Pulse Ox 36.5 C 64 24 143/66 H 92 05/05/19 07:11 05/05/19 09:58 05/05/19 07:11 05/05/19 07:11 05/05/19 07:11 Constitutional: + morbidly obese Respiratory: normal respiratory effort, lungs clear to auscultation Cardiovascular: Rate/Rhythm: regular rate Vessels: no JVD Extremities: no edema Gastrointestinal (Abdomen): normal bowel sounds, soft, nontender, no hepatosplenomegaly Neurologic: PERRL, EOMI, accommodation nl, no face palsy, no dysarthria Results & Data Vital Signs (Past 12 Hours) Vital Signs Temp Pulse Pulse Resp BP Pulse Ox 05/05/19 09:58 64 05/05/19 07:11 36.5 C 64 24 143/66 H 92 05/05/19 06:17 64 133/65 05/05/19 04:20 78 22 95 05/05/19 04:16 37.1 C 63 27 H 140/63 94 05/04/19 23:50 36.8 C 66 26 H 133/64 93 Laboratory Results Coagulation 05/05/19 Range/Units 05:59 PT 15.8 H (9.0-12.0) Seconds APTT 77.7 H* (21.0-31.0) Seconds CBC 05/05/19 Range/Units 05:59 WBC 10.89 H (4.8-10.8) K/uL RBC 3.72 L (4.7-6.1) M/uL Hgb 11.1 L (14.0-18.0) g/dL Hct 35.0 L (42-52) % Plt Count 219 (130-400) K/uL Neut # (Auto) 8.76 H (1.4-6.5) K/uL Lymph # (Auto) 0.98 L (1.2-3.4) K/uL [place] # (Auto) 0.71 H (0.11-0.59) K/uL Eos # (Auto) 0.11 (0-0.5) K/uL Baso # (Auto) 0.03 (0-0.2) K/uL Comprehensive Metabolic Panel 05/05/19 Range/Units 05:59 Sodium 133 L (136-145) mmol/L Potassium 3.8 (3.5-5.1) mmol/L Chloride 97 L (98-107) mmol/L Carbon Dioxide 29 (21-32) mmol/L BUN 25 H (7-18) mg/dl Creatinine 1.10 (0.6-1.4) mg/dl Glucose 185 H (70-99) mg/dl Calcium 9.0 (8.5-10.1) mg/dl Intake and Output 05/04/19 05/05/19 05/05/19 22:59 06:59 14:59 Intake Total 2321.2 / 3341.2 150 / 3341.2 490.133 / 490.133 Output Total 1974 Balance 1721.2 / 1366.2 -600 / 1366.2 490.133 / 490.133 Intake: IV 521.2 / 1021.2 490.133 / 490.133 HEPARIN SODIUM/DEXTROSE 25,000 451.2 / 951.2 490.133 / 490.133 units In 500 ml @ 2,400 UNITS/ HR 48 mls/hr IV .[id number] [facility] Rx #:[id number] Rocephin 2,000 mg In D5w 50 ml 70 / 70 @ 140 mls/hr IV DAILY@1800 [facility] Rx#:[id number] Oral 1800 / 2320 150 / 2320 Output: Urine Amount (Catheter) 1974 Valentine/Indwelling 1974 (1) Diastolic CHF Heart failure chronicity: chronic Qualified Code(s): I50.32 - Chronic diastolic (congestive) heart failure
--- NOTE | 2019-05-05 12:10 | Surgery Progress Note ---
Date of Service May 05, 2019 Assessment & Plan (1) Diabetic ulcer of right buttock associated with type 2 diabetes mellitus, with necrosis of muscle: 05/05/19 POD#9 Passed speech eval, currently eating lunch. Encourage oral intake to help assist with wound healing Dressing changed yesterday by nursing. Per report drainage on dressing is serosanguineous and wound bed clean Continue daily and prn wet to dry dressing changes. If patient has a BM, please change dressing thereafter to ensure wound stays uncontaminated Wound care with (gauze vs kerlex moistened with saline, cover with ABD, and medipore tape) Patient seen and examined with Dr. Ortiz Subjective Patient lying in bed currently eating lunch. Endorses no complaints. Says pain is well controlled. Physical Exam Physical Exam: awake/alert/eating lunch Results & Data Vital Signs (Past 12 Hours) Vital Signs Temp Pulse Pulse Resp BP Pulse Ox 05/05/19 09:58 64 05/05/19 07:11 36.5 C 64 24 143/66 H 92 05/05/19 06:17 64 133/65 05/05/19 04:20 78 22 95 05/05/19 04:16 37.1 C 63 27 H 140/63 94 PG Care Time/CCT Total # of Minutes Spent Total Time Spent with Patient: Total time spent is greater than 50% in coordination of care (as documented) at patient's floor/unit and/or counseling patient:
--- NOTE | 2019-05-05 12:11 | Pharmacy Report ---
Pharmacy Glycemic Short Note 2 - Date of Service May 05, 2019 - Glycemic Short BSG Results (Last 24 hours): 05/04/19 05/04/19 05/04/19 11:27 16:36 20:16 Glucose POC Glucose 218 H 223 H 236 H 05/04/19 05/05/19 05/05/19 23:47 04:10 05:59 Glucose 185 H POC Glucose 176 H 176 H 05/05/19 07:25 Glucose POC Glucose 186 H Outpatient Anti-diabetic Regimen: U-500 insulin pump * Per outpatient data obtained from previous admission in June 2018 * Total daily outpatient basal dose is ~70 units/day *of U-500* which is equivalent to about 350 units/day of U-100 insulin * Non-adherence noted - patient often forgets to provide additional bolus doses for prandial coverage A1c = 9.5 % on 04/27/19 Risk Factors for Insulin Resistance: * Infection: MSSA bacteremia 2nd SSTI * IVF: heparin drip mixed in dextrose @ 44 mL/hr * Diet: T2DM ASSESSMENT: 05/05 * Patient was transitioned off the insulin drip on 05/03 and a basal bolus regimen started on 05/04 since po intake was poor. * PO intake improved throughout the day yesterday. Pt consumed over 50 grams carbohydrates with each meal. * He received a total of 154 units of insulin yesterday. (70 units basal, 84 units bolus) * Transitioned pt from lantus to conservative doses of U-500 today since he is eating well again. * Humalog CF on board to cover hyperglycemia. * Based on past admission data, pt tends to show stacking with TID U-500 coverage. Will dose dinner U-500 per scale. Plan * U-500 * 40 units with breakfast * 40 units with lunch * For dinner if bsg less than 140 mg/dL give 20 units if bsg 140 - 200 mg/dL give 40 units if bsg greater than 200 mg/dL give 50 units * Novolog ACHS * Goal 110-140 mg/dL * Correction factor: 10 (ten) mg/dL/unit * Carb ratio: n/a u-500 will cover meals
[2019-05-05 13:33] LABS: Partial Thromboplastin Ratio 3.2
[2019-05-05] MEDS: WARFARIN SOD 4 MG TAB PO SCH (17:26)
[2019-05-05] MEDS: DIGOXIN 0.125 MG TAB PO SCH (17:26)
[2019-05-05] MEDS: cefTRIAXone SODIUM 2,000 MG in DEXTROSE 5% 50 ML IV SCH (18:06)
--- NOTE | 2019-05-05 18:26 | Hospitalist Progress Note ---
Date of Service May 05, 2019 Assessment & Plan (1) Sepsis: Severe Sepsis Staph aureus bacteremia Right buttock ulceration/necrosis S/P urgent debridement on 04/27/19 S/P Extubation on 05/01/19 Blood Cultures from 04/26/2019: Staph aureus--MSSA Wound culture: Staph aureus Repeat blood cultures from 04/29/2019: No growth IV vancomycin, Zosyn transitioned to ceftriaxone Appreciate coupon manifest clerk, ID, Surgery Input Needs to continue Rocephin 2 g IV daily for 4 weeks Needs weekly CBC, CMP, ESR while on antibiotics No further surgical intervention planned as per surgery Continue wound care: Wet to dry dressing with moist saline gauze Vs Kerflex Continue current medications PT/OT Acute kidney injury on CKD III Likely ATN secondary to sepsis Creatinine levels back to baseline Monitor renal function Avoid nephrotoxic agents as able (2) Lactic acidosis: Admission lactic acid 6.6 lactic acidosis resolved (3) Decubitus ulcer: Present on admission of necrosis of right buttock ulceration Operation Date: 04/26/19: s/p Debridement necrotic right buttock ulceration; drainage of perirectal abscess; incision of thrombosed hemorrhoid management of ulcers as above (4) Atrial fibrillation with RVR: secondary to sepsis and metabolic derangements Continue metoprolol, digoxin On IV heparin, Coumadin for anticoagulation Monitor INR:1.6 (5) Elevated troponin: Elevated troponins on this admission from demand ischemia due to to sepsis and atrial fibrillation with rapid ventricular response Echocardiogram on 04/28/19 was not well visualized Denies Angina symptoms (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 (7) Pacemaker: Pacemaker in place and functioning appropriately as per cardiology evaluation (8) Chronic diastolic CHF (congestive heart failure): H/O Non ischemic Cardiomyopathy Echo 11/2018: Mildly reduced EF, grade 1 diastolic dysfunction Continue Lasix 80 mg twice daily Monitor volume status (9) Acute kidney injury superimposed on CKD: Management as above (10) CKD (chronic kidney disease) stage 3, GFR 30-59 ml/min: Rhabdomyolysis CK: creatinine kinase peaked above 3000 CK levels trended down Hypokalemia Hypomagnesemia Hypophosphatemia Replace electrolytes as needed (11) Diabetes mellitus, type 2: Type 2 diabetes mellitus with jail current use of insulin and with hyperglycemia Mild Diabetic Ketoacidosis Patient presenting from home with generalized weakness and frequent falls for the past 3 days prior to admission with insulin pump became disconnected at some point in time throughout the night and patient was unable to reconnect Appreciate pharmacy glycemic consult Continue Insulin Therapy Transaminitis 04/26/19 liver ultrasound Exam is compromised suboptimal penetration. The liver is enlarged and echogenic. Pancreas is obscured by overlying bowel gas. Caliber of the common bile duct is at the upper limits of normal following cholecystectomy, measuring 7 mm. There is a small fluid-filled structure within the cholecystectomy bed which may reflect a small gallbladder remnant. There is no right hydronephrosis LFTs improved monitor (12) Hypothyroidism: continue levothyroxine (13) COPD, moderate: Stable (14) SALAS (obstructive sleep apnea): CPAP QHS (15) History of pulmonary embolism: H/O PE H/O Depression continue home meds Nocturnal hypoxemia On 2 L of oxygen at bedtime Continue supplemental oxygen as needed Morbid Obesity BMI:53 (16) DVT prophylaxis: On IV heparin and coumadin Code Status Full Code Family Contact: daughter Bing [phone] daughter Tatyana sister Enrike [phone] Subjective Patient is seen and examined at bedside More alert today Offers no complaints In sinus this morning Discussed with family at bedside Denies any pain of right buttock wound Also denies any chest pain, shortness of breath, dizziness, nausea, abdominal pain On heparin GGT Review of Systems Review of Systems: All systems reviewed & are unremarkable except as noted in HPI & below Physical Exam Physical Exam: Physical Exam: Vitals signs as noted above General Appearance:Morbidly Obese, no apparent distress Head: normocephalic, Atraumatic Eyes: normal inspection, EOMI Neck: supple, Trachea midline Respiratory/Chest: Normal breath sounds, CTA Cardiovascular: S1, S2, No murmur Abdomen/GI:Soft, Non tender, Bowel sounds present Extremities/Musculoskelatal:normal inspection, chronic venous stasis changes lower extremities, edema Neurologic/Psych:AAOX3, grossly no focal neurological deficits Skin: normal color, warm, R buttock wound in dressing Results & Data Vital Signs (Past 12 Hours) Vital Signs Temp Pulse Pulse Resp BP Pulse Ox 05/05/19 17:26 77 05/05/19 15:41 68 05/05/19 15:20 36.7 C 71 19 154/83 H 93 05/05/19 11:50 36.9 C 70 18 134/71 93 05/05/19 09:58 64 05/05/19 07:11 36.5 C 64 24 143/66 H 92 Laboratory Results Short CBC 05/05/19 Range/Units 05:59 WBC 10.89 H (4.8-10.8) K/uL Hgb 11.1 L (14.0-18.0) g/dL Hct 35.0 L (42-52) % Plt Count 219 (130-400) K/uL BMP 05/05/19 05:59 Sodium 133 L Potassium 3.8 Chloride 97 L Carbon Dioxide 29 BUN 25 H Creatinine 1.10 Glucose 185 H Calcium 9.0 (1) Diabetes mellitus, type 2 Diabetes mellitus continuous churn buttermaker insulin use: with continuous churn buttermaker use Diabetes mellitus complication status: with kidney complications Diabetes mellitus complication detail: with chronic kidney disease Chronic kidney disease stage: stage 3 (moderate) Qualified Code(s): E11.22 - Type 2 diabetes mellitus with diabetic chronic kidney disease; N18.3 - Chronic kidney disease, stage 3 (moderate); Z79.4 - continuous churn buttermaker (current) use of insulin (2) Hypothyroidism Hypothyroidism type: unspecified Qualified Code(s): E03.9 - Hypothyroidism, unspecified
[2019-05-05 19:31] LABS: Partial Thromboplastin Ratio 1.5; Partial Thromboplastin Time 39.3 Seconds (21.0-31.0)
[2019-05-05] MEDS ORDERED: HEPARIN IV BOLUS 9,000 UNITS in SYRINGE 0 ML IV ONE (20:15)
[2019-05-05] MEDS: allopurinoL 300 MG TAB PO SCH (21:17)
[2019-05-06] MEDS: METOPROLOL TARTRATE 50 MG TAB PO SCH ×5 (00:34→22:26)
[2019-05-06 03:33] LABS: Hemoglobin 11.4 g/dL (14.0-18.0); Mean Corpuscular Hemoglobin 29.9 pg (25-34); Mean Corpuscular Hgb Conc 32.6 g/dL (32-36); Mean Corpuscular Volume 91.9 fL (80-100); Mean Platelet Volume 10.3 fL (7.4-10.4); Platelet Count 244 K/uL (130-400); RDW Coefficient of Variation 15.7 % (11.5-14.5); RDW Standard Deviation 52.9 fL (36.4-46.3); Red Blood Count 3.81 M/uL (4.7-6.1); White Blood Count 11.34 K/uL (4.8-10.8)
[2019-05-06 04:10] LABS: INR 2.7 (0.9-1.1); Partial Thromboplastin Ratio 4.6; Prothrombin Time 25.4 Seconds (9.0-12.0)
[2019-05-06 04:16] LABS: Partial Thromboplastin Time 123.5 Seconds (21.0-31.0)
[2019-05-06] MEDS: LEVOTHYROXINE SODIUM 200 MCG TABLET PO SCH (05:40)
[2019-05-06] MEDS: LEVOTHYROXINE SODIUM 50 MCG TABLET PO SCH (05:40)
[2019-05-06] MEDS: INSULIN ASPART 100 UNITS/ML 3 ML PEN SC SCH ×4 (08:53→22:22)
[2019-05-06] MEDS: CHOLECALCIFEROL 1,000 UNITS TAB PO SCH (08:54)
[2019-05-06] MEDS: ATORVASTATIN 10 MG TAB PO SCH (08:54)
[2019-05-06] MEDS: POTASSIUM CHLORIDE 10 MEQ TABCR PO SCH (08:55)
[2019-05-06] MEDS: ASPIRIN 81 MG CHEW PO SCH (08:55)
[2019-05-06] MEDS: GABAPENTIN 100 MG CAP PO SCH ×3 (08:55→22:19)
[2019-05-06] MEDS: PANTOprazole 40 MG TAB PO SCH (08:55)
[2019-05-06] MEDS: MAGNESIUM OXIDE 400 MG TAB PO SCH (08:55)
[2019-05-06] MEDS: DULOXETINE HCL 60 MG CAP PO SCH (08:56)
[2019-05-06] MEDS: FUROSEMIDE 80 MG TAB PO SCH ×2 (08:56→17:04)
[2019-05-06] MEDS: NYSTATIN SUSP 500,000 U/5 ML UDC PO SCH ×4 (08:56→22:18)
[2019-05-06] MEDS: DOCUSATE SODIUM/SENNA 50/8.6MG TAB PO SCH ×2 (09:50→22:25)
[2019-05-06] MEDS: BuPROPion XL 150 MG TABCR PO SCH (09:50)
[2019-05-06] MEDS: HEPARIN SODIUM/DEXTROSE 25,000 UNITS/500 ML BAG IV SCH (09:51)
--- NOTE | 2019-05-06 11:57 | Surgery Progress Note ---
Date of Service May 06, 2019 Assessment & Plan (1) Diabetic ulcer of right buttock associated with type 2 diabetes mellitus, with necrosis of muscle: 05/06/19 POD#10 Wound dressing changed at bedside with nursing help. Kerlex gauze was with serosanguineous drainage. Wound bed is overall clean with viable tissue Please continue daily and PRN dressing changes, especially after patient has a BM Wound care with (gauze vs kerlex moistened with saline, cover with ABD, and medipore tape) Subjective Patient offers no complaints. Denies much pain or discomfort from his buttock wound. Physical Exam Physical Exam: awake/alert Constitutional: no acute distress Skin: buttock wound with viable tissue. Drainage on kerlex is serosanguineous. Results & Data Vital Signs (Past 12 Hours) Vital Signs Temp Pulse Pulse Resp BP Pulse Ox 05/06/19 07:30 37.0 C 67 18 93 05/06/19 04:03 37.5 C 82 32 H 145/73 H 91 05/06/19 03:05 79 18 92 PG Care Time/CCT Total # of Minutes Spent Total Time Spent with Patient: Total time spent is greater than 50% in coordination of care (as documented) at patient's floor/unit and/or counseling patient:
--- NOTE | 2019-05-06 12:33 | Cardiology Progress Note ---
Date of Service May 06, 2019 Assessment & Plan (1) Atrial fibrillation with rapid ventricular response: Converted to sinus rhythm 05/04/2019 at 1811. Continue current dose of metoprolol and digoxin. INR is 2.7 today, heparin discontinued. Continue Coumadin, INR to be repeated tomorrow. (2) Diastolic CHF: Patient doing well on his home dose of furosemide 80 mg twice daily, as well as low-dose potassium supplementation, renal function and potassium levels stable. Subjective Chief complaint: Follow-up atrial fibrillation, interstitial edema Subjective: Patient feeling well. Eating his meal in bed. Telemetry reveals ongoing sinus rhythm with demand AV sequential pacing. Review of Systems Review of Systems: All systems reviewed & are unremarkable except as noted in HPI & below Physical Exam Physical Exam: Temp Pulse Resp BP Pulse Ox 37.2 C 68 18 152/78 H 91 05/06/19 11:54 05/06/19 11:54 05/06/19 11:54 05/06/19 11:54 05/06/19 11:54 Constitutional: WD/WN, vitals as above + morbidly obese Respiratory: normal respiratory effort, lungs clear to auscultation Cardiovascular: Extremities: no edema Distant heart sounds, regular rate, no murmurs Gastrointestinal (Abdomen): normal bowel sounds, soft, nontender, no hepatosplenomegaly Neurologic: PERRL, EOMI, accommodation nl, no face palsy, no dysarthria Results & Data Vital Signs (Past 12 Hours) Vital Signs Temp Pulse Pulse Resp BP Pulse Ox 05/06/19 11:54 37.2 C 68 18 152/78 H 91 05/06/19 07:30 37.0 C 67 18 93 05/06/19 04:03 37.5 C 82 32 H 145/73 H 91 05/06/19 03:05 79 18 92 (1) Diastolic CHF Heart failure chronicity: chronic Qualified Code(s): I50.32 - Chronic diastolic (congestive) heart failure
--- NOTE | 2019-05-06 15:15 | Pharmacy Report ---
Pharmacy Glycemic Short Note 2 - Date of Service May 06, 2019 - Glycemic Short BSG Results (Last 24 hours): 05/05/19 05/05/19 05/06/19 16:20 20:19 07:35 POC Glucose 181 H 172 H 100 H 05/06/19 11:43 POC Glucose 193 H Outpatient Anti-diabetic Regimen: U-500 insulin pump * Per outpatient data obtained from previous admission in June 2018 * Total daily outpatient basal dose is ~70 units/day *of U-500* which is equivalent to about 350 units/day of U-100 insulin * Non-adherence noted - patient often forgets to provide additional bolus doses for prandial coverage A1c = 9.5 % on 04/27/19 Risk Factors for Insulin Resistance: * Infection: MSSA bacteremia 2nd SSTI * IVF: heparin drip mixed in dextrose @ 44 mL/hr * Diet: T2DM ASSESSMENT: * Patient was transitioned off the IV insulin infusion on 05/03. He was given two doses of U-500 (40 units each). BSGs decreased into the 70-80s. His oral intake was poor at this time and was likely the cause of low BSG despite conservative U-500 doses. He was then switched to Lantus + Novolog on 05/04 to capture prandial needs. Oral intake improved significantly on 05/04 and 05/05 therefore it seemed reasonable to resume U-500. * Based on past admission data, pt tends to show stacking with TID U-500 dosing. Will trial utilizing BID dosing. If patient has adequate glycemic control on BID dosing, we could switch to NPH as this has similar kinetics. * He received a total of 156 units of insulin yesterday (120 units of this was U-500). I will decrease U-500 dosing by ~20-25%. BSG check with coverage added for midnight incase dose reduction is too aggressive. Plan * U-500 * 40 units with breakfast today, then 50 units SQ BID with meals * Novolog ACHS * Goal 110-140 mg/dL * Correction factor: 10 (ten) mg/dL/unit * Carb ratio: n/a u-500 will cover meals
[2019-05-06] MEDS ORDERED: WARFARIN SOD 4 MG TAB PO SCH (16:00)
[2019-05-06] MEDS: DIGOXIN 0.125 MG TAB PO SCH (17:02)
--- NOTE | 2019-05-06 17:41 | Hospitalist Progress Note ---
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 separator operator, ID, Surgery Input Needs to continue Rocephin 2 g IV daily for 4 weeks Day # 12/07 Needs weekly CBC, CMP, ESR while on antibiotics No further surgical intervention planned as per surgery Continue wound care: Wet to dry dressing with moist saline gauze Vs Kerflex Continue PT/OT Acute kidney injury on CKD III Likely ATN secondary to sepsis Creatinine levels back to baseline Monitor renal function Avoid nephrotoxic agents as able Renal function stable (2) Lactic acidosis: Admission lactic acid 6.6 lactic acidosis resolved (3) Decubitus ulcer: Present on admission of necrosis of right buttock ulceration Operation Date: 04/26/19: s/p Debridement necrotic right buttock ulceration; drainage of perirectal abscess; incision of thrombosed hemorrhoid management of ulcers as above (4) Atrial fibrillation with RVR: secondary to sepsis and metabolic derangements Continue metoprolol, digoxin IV heparin discontinued Continue Coumadin for anticoagulation Monitor INR:2.7 (5) Elevated troponin: Elevated troponins on this admission from demand ischemia due to to sepsis and atrial fibrillation with rapid ventricular response Echocardiogram on 04/28/19 was not well visualized Denies Angina symptoms (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 (7) Pacemaker: Pacemaker in place and functioning appropriately as per cardiology evaluation (8) Chronic diastolic CHF (congestive heart failure): H/O Non ischemic Cardiomyopathy Echo 11/2018: Mildly reduced EF, grade 1 diastolic dysfunction Continue Lasix 80 mg twice daily Monitor volume status (9) Acute kidney injury superimposed on CKD: Management as above (10) CKD (chronic kidney disease) stage 3, GFR 30-59 ml/min: Rhabdomyolysis CK: creatinine kinase peaked above 3000 CK levels trended down Hypokalemia Hypomagnesemia Hypophosphatemia Replace electrolytes as needed (11) Diabetes mellitus, type 2: Type 2 diabetes mellitus with halfway current use of insulin and with hyperglycemia Mild Diabetic Ketoacidosis Patient presenting from home with generalized weakness and frequent falls for the past 3 days prior to admission with insulin pump became disconnected at some point in time throughout the night and patient was unable to reconnect Appreciate pharmacy glycemic consult Continue Insulin Therapy Transaminitis 04/26/19 liver ultrasound Exam is compromised suboptimal penetration. The liver is enlarged and echogenic. Pancreas is obscured by overlying bowel gas. Caliber of the common bile duct is at the upper limits of normal following cholecystectomy, measuring 7 mm. There is a small fluid-filled structure within the cholecystectomy bed which may reflect a small gallbladder remnant. There is no right hydronephrosis LFTs improved monitor (12) Hypothyroidism: continue levothyroxine (13) COPD, moderate: Stable (14) SALAS (obstructive sleep apnea): CPAP QHS (15) History of pulmonary embolism: H/O PE H/O Depression continue home meds Nocturnal hypoxemia On 2 L of oxygen at bedtime Continue supplemental oxygen as needed Morbid Obesity BMI:53 (16) DVT prophylaxis: On Coumadin Code Status Full Code Family Contact: daughter Bing [phone] daughter Tatyana sister Enrike [phone] Subjective Patient is seen and examined at bedside INR in therapeutic range Offers no complaints Remains in Sinus Offers no complaints Denies any pain of right buttock wound, chest pain, SOB, dizziness, nausea, abdominal pain heparin drip discontinued Review of Systems Review of Systems: All systems reviewed & are unremarkable except as noted in HPI & below Physical Exam Physical Exam: Physical Exam: Vitals signs as noted above General Appearance:Morbidly Obese, no apparent distress Head: normocephalic, Atraumatic Eyes: normal inspection, EOMI Neck: supple, Trachea midline Respiratory/Chest: Normal breath sounds, CTA Cardiovascular: S1, S2, No murmur Abdomen/GI:Soft, Non tender, Bowel sounds present Extremities/Musculoskelatal:normal inspection, chronic venous stasis changes lower extremities, edema Neurologic/Psych:AAOX3, grossly no focal neurological deficits Skin: normal color, warm, R buttock wound in dressing Results & Data Vital Signs (Past 12 Hours) Vital Signs Temp Pulse Pulse Resp BP Pulse Ox 05/06/19 17:02 75 05/06/19 15:48 36.7 C 69 23 154/75 H 91 05/06/19 15:21 91 05/06/19 11:54 37.2 C 68 18 152/78 H 91 05/06/19 07:30 37.0 C 67 18 93 Laboratory Results Short CBC 05/06/19 Range/Units 02:59 WBC 11.34 H (4.8-10.8) K/uL Hgb 11.4 L (14.0-18.0) g/dL Hct 35.0 L (42-52) % Plt Count 244 (130-400) K/uL (1) Diabetes mellitus, type 2 Diabetes mellitus intermediate teacher insulin use: with halfway use Diabetes mellitus complication status: with kidney complications Diabetes mellitus complication detail: with chronic kidney disease Chronic kidney disease stage: stage 3 (moderate) Qualified Code(s): E11.22 - Type 2 diabetes mellitus with diabetic chronic kidney disease; N18.3 - Chronic kidney disease, stage 3 (moderate); Z79.4 - termite control technician (current) use of insulin (2) Hypothyroidism Hypothyroidism type: unspecified Qualified Code(s): E03.9 - Hypothyroidism, unspecified
[2019-05-06] MEDS: cefTRIAXone SODIUM 2,000 MG in DEXTROSE 5% 50 ML IV SCH (18:37)
[2019-05-06] MEDS ORDERED: METOPROLOL TARTRATE 1 MG/ML VIAL IV PRN (19:12)
[2019-05-06] MEDS: allopurinoL 300 MG TAB PO SCH (22:20)
[2019-05-07] MEDS ORDERED: INSULIN ASPART 100 UNITS/ML 3 ML PEN SC SCH
[2019-05-07] MEDS ORDERED: METOPROLOL TARTRATE 1 MG/ML VIAL IV STA ×2 (00:17→01:15)
[2019-05-07 00:26] LABS: Basophils # (auto) 0.02 K/uL (0-0.2); Basophils % (auto) 0.2 %; Eosinophils # (auto) 0.04 K/uL (0-0.5); Eosinophils % (auto) 0.4 %; Hematocrit (blood only) 34.9 % (42-52); Hemoglobin 11.6 g/dL (14.0-18.0); Immature Granulocytes # (auto) 0.09 K/uL (0.00-0.02); Immature Granulocytes % (auto) 0.9 %; Lymphocytes # (auto) 0.86 K/uL (1.2-3.4); Lymphocytes % (auto) 8.6 %; Mean Corpuscular Hemoglobin 30.5 pg (25-34); Mean Corpuscular Hgb Conc 33.2 g/dL (32-36); Mean Corpuscular Volume 91.8 fL (80-100); Mean Platelet Volume 9.9 fL (7.4-10.4); Monocytes # (auto) 0.53 K/uL (0.11-0.59); Monocytes % (auto) 5.3 %; Neutrophils # (auto) 8.51 K/uL (1.4-6.5); Neutrophils % (auto) 84.6 %; Platelet Count 236 K/uL (130-400); RDW Coefficient of Variation 15.3 % (11.5-14.5); RDW Standard Deviation 51.8 fL (36.4-46.3); White Blood Count 10.05 K/uL (4.8-10.8)
[2019-05-07 00:28] LABS: Base Excess ABG 6.4 mEq/L (-9-1.8); HCO3 ABG 30 mmol/L (19-24); Oxygen Saturation ABG 89.5 % (90-95); PCO2 ABG 37 mmHg (35-46); PO2 ABG 55 mm/Hg (80-95)
[2019-05-07] MEDS ORDERED: FUROSEMIDE 40 MG in SYRINGE 0 ML IV ONE (00:30)
[2019-05-07] MEDS ORDERED: MAGNESIUM SULFATE / D5W 1 GM/100 ML BAG IV ONE ×2 (00:30→01:45)
[2019-05-07] MEDS ORDERED: POTASSIUM CHLORIDE 20 MEQ TABCR PO ONE (00:30)
[2019-05-07 00:33] LABS: Allen Test Pos (Pos)
[2019-05-07 00:40] LABS: pH ABG 7.52 (7.35-7.45)
[2019-05-07 00:42] LABS: BUN Creatinine Ratio 18.1 (10-20); Calcium 9.1 mg/dl (8.5-10.1); Creatinine Clr Calc Pharmacy 110.5 ml/min; Est GFR (African American) 78.4; Est GFR (Non-African American) 67.6; Magnesium 1.8 mg/dl (1.8-2.4); Potassium 3.9 mmol/L (3.5-5.1)
[2019-05-07 00:44] LABS: Prothrombin Time 34.8 Seconds (9.0-12.0)
[2019-05-07] MEDS ORDERED: FUROSEMIDE 80 MG in SYRINGE 0 ML IV ONE (00:45)
[2019-05-07 00:47] LABS: INR 3.7 (0.9-1.1)
[2019-05-07] MEDS ORDERED: XOPENEX/ATROVENT 1.25mg/0.5MG NEB COMBO NEB STA (01:07)
[2019-05-07] MEDS ORDERED: DIGOXIN 250 MCG in SYRINGE 9 ML IV ONE (01:30)
[2019-05-07] MEDS ORDERED: LEVALBUTEROL 1.25MG/0.5ML NEB INH STA (01:32)
[2019-05-07] MEDS ORDERED: IPRATROPIUM BROMIDE NEB SOLN 0.02% 2.5 ML VIAL INH STA (01:32)
[2019-05-07] MEDS ORDERED: ACETAMINOPHEN 65 ML IV ONE (01:45)
[2019-05-07] MEDS: LEVOTHYROXINE SODIUM 200 MCG TABLET PO SCH (05:25)
[2019-05-07] MEDS: LEVOTHYROXINE SODIUM 50 MCG TABLET PO SCH (05:25)
[2019-05-07] MEDS: METOPROLOL TARTRATE 100 MG TAB PO SCH ×4 (05:25→22:39)
--- NOTE | 2019-05-07 06:10 | Progress Note ---
Date of Service May 07, 2019 Assessment & Plan (1) Sepsis: pt resting comfortably - cpap in place fever last pm, cultures done- afeb, pulse normal this am packing wound- will check later this am cont IV atbx, wound care Results & Data Vital Signs (Past 12 Hours) Vital Signs Temp Pulse Pulse Resp BP BP Pulse Ox 05/07/19 05:27 78 30 H 91 05/07/19 03:29 37.5 C 110 H 32 H 128/66 94 05/07/19 02:09 120 H 05/07/19 02:05 120 H 05/07/19 01:29 122 H 05/07/19 01:28 131 H 20 95 05/07/19 01:05 131 H 20 94 05/07/19 00:59 39.3 C H 110 H 26 H 136/98 94 05/07/19 00:41 128 H 155/66 H 05/06/19 22:30 135 H 05/06/19 21:54 93 H 28 H 93 05/06/19 19:20 36.8 C 94 H 16 166/80 H 91 PG Care Time/CCT Total # of Minutes Spent Total Time Spent with Patient: Total time spent is greater than 50% in coordination of care (as documented) at patient's floor/unit and/or counseling patient:
[2019-05-07] MEDS ORDERED: INSULIN HUMAN NPH SC SCH (08:00)
[2019-05-07] MEDS: INSULIN ASPART 100 UNITS/ML 3 ML PEN SC SCH ×4 (08:48→22:08)
[2019-05-07] MEDS: GABAPENTIN 100 MG CAP PO SCH ×3 (08:49→22:39)
[2019-05-07] MEDS: MAGNESIUM OXIDE 400 MG TAB PO SCH (08:50)
[2019-05-07] MEDS: FUROSEMIDE 80 MG TAB PO SCH ×2 (08:50→17:03)
[2019-05-07] MEDS: CHOLECALCIFEROL 1,000 UNITS TAB PO SCH (08:50)
[2019-05-07] MEDS: ASPIRIN 81 MG CHEW PO SCH (08:50)
[2019-05-07] MEDS: DULOXETINE HCL 60 MG CAP PO SCH (08:50)
[2019-05-07] MEDS: ATORVASTATIN 10 MG TAB PO SCH (08:50)
[2019-05-07] MEDS: BuPROPion XL 150 MG TABCR PO SCH (08:51)
[2019-05-07] MEDS: NYSTATIN SUSP 500,000 U/5 ML UDC PO SCH ×4 (08:51→21:57)
[2019-05-07] MEDS: POTASSIUM CHLORIDE 10 MEQ TABCR PO SCH (08:51)
[2019-05-07] MEDS: PANTOprazole 40 MG TAB PO SCH (09:09)
--- NOTE | 2019-05-07 09:49 | XRay Report ---
XR chest 1V portable CLINICAL HISTORY: tachypnea COMPARISON STUDY: Chest radiograph May 04, 2019 per FINDINGS: Dual lead left subclavian pacemaker is in place. There is moderate cardiomegaly. Interstiti al thickening is noted. Mild pulmonary edema has slightly progressed. Bilateral hilar prominence is u nchanged. There is no pneumothorax or pleural effusion. IMPRESSION: 1. Slight progression of pulmonary edema. 2. Bibasilar opacities. Electronically signed by: Basil Hills M.D. 05/07/2019 9:48 AM
[2019-05-07] MEDS: DOCUSATE SODIUM/SENNA 50/8.6MG TAB PO SCH ×2 (11:36→22:02)
--- NOTE | 2019-05-07 13:26 | Pharmacy Report ---
Pharmacy Glycemic Short Note 2 - Date of Service May 07, 2019 - Glycemic Short BSG Results (Last 24 hours): 05/06/19 05/06/19 05/06/19 11:43 16:45 20:34 Glucose POC Glucose 193 H 193 H 203 H 05/07/19 05/07/19 05/07/19 00:08 00:19 07:15 Glucose 150 H POC Glucose 153 H 150 H 05/07/19 11:20 Glucose POC Glucose 250 H Outpatient Anti-diabetic Regimen: U-500 insulin pump * Per outpatient data obtained from previous admission in June 2018 * Total daily outpatient basal dose is ~70 units/day *of U-500* which is equivalent to about 350 units/day of U-100 insulin * Non-adherence noted - patient often forgets to provide additional bolus doses for prandial coverage A1c = 9.5 % on 04/27/19 Risk Factors for Insulin Resistance: * Infection: MSSA bacteremia 2nd SSTI * Diet: T2DM ASSESSMENT: 05/07 * Mr. Andujar received 111 units of insulin yesterday, with fairly stable BSGs * He was febrile overnight and was noted to be in a fib again * Since daily insulin requirements remain much less than U500 requirements, will plan to transition to NPH + Novolog. This will allow for easier titration without use of U500, which contains both bolus and basal properties. * Est TDD of insulin 130-150 units 05/06 * Patient was transitioned off the IV insulin infusion on 05/03. He was given two doses of U-500 (40 units each). BSGs decreased into the 70-80s. His oral intake was poor at this time and was likely the cause of low BSG despite conservative U-500 doses. He was then switched to Lantus + Novolog on 05/04 to capture prandial needs. Oral intake improved significantly on 05/04 and 05/05 therefore it seemed reasonable to resume U-500. * Based on past admission data, pt tends to show stacking with TID U-500 dosing. Will trial utilizing BID dosing. If patient has adequate glycemic control on BID dosing, we could switch to NPH as this has similar kinetics. * He received a total of 156 units of insulin yesterday (120 units of this was U-500). I will decrease U-500 dosing by ~20-25%. BSG check with coverage added for midnight incase dose reduction is too aggressive. Plan * Change U500 to NPH + Novolog * NPH BID per the following scale: * 35 units for BSG < 150 * 40 units for BSG 150 or above * Novolog ACHS * Goal 110-140 mg/dL * Correction factor: 8 mg/dL/unit * Carb ratio: 1 unit per 3 gm CHO consumed Discharge Recommendations: * Transition to U500 pump on discharge
--- NOTE | 2019-05-07 16:46 | Hospitalist Progress Note ---
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 Input Needs to continue Rocephin 2 g IV daily for 4 weeks Day # 01/07 Needs weekly CBC, CMP, ESR while on antibiotics No further surgical intervention planned as per surgery Continue wound care: Wet to dry dressing with moist saline gauze Vs Kerflex Continue PT/OT Acute kidney injury on CKD III Likely ATN secondary to sepsis Creatinine levels back to baseline Monitor renal function Avoid nephrotoxic agents as able Renal function stable (2) Lactic acidosis: Admission lactic acid 6.6 lactic acidosis resolved (3) Decubitus ulcer: Present on admission of necrosis of right buttock ulceration Operation Date: 04/26/19: s/p Debridement necrotic right buttock ulceration; drainage of perirectal abscess; incision of thrombosed hemorrhoid management of ulcers as above (4) Atrial fibrillation with RVR: secondary to sepsis and metabolic derangements Continue metoprolol, digoxin IV heparin discontinued Hold Coumadin today Monitor INR:2.7>> 3.7 No bleeding issues Metoprolol dose increased to 100 mg every 6 hours for better rate control Requested cardiology to follow-up (5) Elevated troponin: Elevated troponins on this admission from demand ischemia due to to sepsis and atrial fibrillation with rapid ventricular response Echocardiogram on 04/28/19 was not well visualized Denies Angina symptoms (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 (7) Pacemaker: Pacemaker in place and functioning appropriately as per cardiology evaluation (8) Chronic diastolic CHF (congestive heart failure): H/O Non ischemic Cardiomyopathy Echo 11/2018: Mildly reduced EF, grade 1 diastolic dysfunction Continue Lasix 80 mg twice daily Monitor volume status (9) Acute kidney injury superimposed on CKD: Management as above (10) CKD (chronic kidney disease) stage 3, GFR 30-59 ml/min: Rhabdomyolysis CK: creatinine kinase peaked above 3000 CK levels trended down Hypokalemia Hypomagnesemia Hypophosphatemia Replace electrolytes as needed (11) Diabetes mellitus, type 2: Type 2 diabetes mellitus with long-term current use of insulin and with hyperglycemia Mild Diabetic Ketoacidosis Patient presenting from home with generalized weakness and frequent falls for the past 3 days prior to admission with insulin pump became disconnected at some point in time throughout the night and patient was unable to reconnect Appreciate pharmacy glycemic consult Continue Insulin Therapy Transaminitis 04/26/19 liver ultrasound Exam is compromised suboptimal penetration. The liver is enlarged and echogenic. Pancreas is obscured by overlying bowel gas. Caliber of the common bile duct is at the upper limits of normal following cholecystectomy, measuring 7 mm. There is a small fluid-filled structure within the cholecystectomy bed which may reflect a small gallbladder remnant. There is no right hydronephrosis LFTs improved monitor (12) Hypothyroidism: continue levothyroxine (13) COPD, moderate: Stable (14) SALAS (obstructive sleep apnea): CPAP QHS (15) History of pulmonary embolism: H/O PE H/O Depression continue home meds Nocturnal hypoxemia On 2 L of oxygen at bedtime Continue supplemental oxygen as needed Morbid Obesity BMI:53 (16) DVT prophylaxis: On Coumadin Code Status Full Code Family Contact: daughter Bing [phone] daughter Tatyana sister Enrike [phone] Subjective Patient is seen and examined at bedside A. fib RVR overnight, currently rate controlled Had dressing change this morning INR remains therapeutic, no bleeding issues Offers no complaints Denies any pain of right buttock wound, chest pain, SOB, dizziness, nausea, abdominal pain Discussed with cardiology today Review of Systems Review of Systems: All systems reviewed & are unremarkable except as noted in HPI & below Physical Exam Physical Exam: Physical Exam: Vitals signs as noted above General Appearance:Morbidly Obese, no apparent distress Head: normocephalic, Atraumatic Eyes: normal inspection, EOMI Neck: supple, Trachea midline Respiratory/Chest: Normal breath sounds, CTA Cardiovascular: Irregularly irregular, No murmur Abdomen/GI:Soft, Non tender, Bowel sounds present Extremities/Musculoskelatal:normal inspection, chronic venous stasis changes lower extremities, edema Neurologic/Psych:AAOX3, grossly no focal neurological deficits Skin: normal color, warm, R buttock wound in dressing Results & Data Vital Signs (Past 12 Hours) Vital Signs Temp Pulse Pulse Pulse Resp BP Pulse Ox 05/07/19 15:39 36.7 C 93 H 20 151/68 H 92 05/07/19 11:20 38.1 C H 105 H 22 141/77 H 91 05/07/19 07:20 36.8 C 68 22 136/74 95 05/07/19 05:27 78 30 H 91 Laboratory Results Short CBC 05/07/19 Range/Units 00:19 WBC 10.05 (4.8-10.8) K/uL Hgb 11.6 L (14.0-18.0) g/dL Hct 34.9 L (42-52) % Plt Count 236 (130-400) K/uL BMP 05/07/19 00:19 Sodium 134 L Potassium 3.9 Chloride 97 L Carbon Dioxide 32 BUN 20 H Creatinine 1.12 Glucose 150 H Calcium 9.1 (1) Diabetes mellitus, type 2 Diabetes mellitus long-term insulin use: with long-term use Diabetes mellitus complication status: with kidney complications Diabetes mellitus complication detail: with chronic kidney disease Chronic kidney disease stage: stage 3 (moderate) Qualified Code(s): E11.22 - Type 2 diabetes mellitus with diabetic chronic kidney disease; N18.3 - Chronic kidney disease, stage 3 (moderate); 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
[2019-05-07] MEDS: DIGOXIN 0.125 MG TAB PO SCH (17:31)
[2019-05-07] MEDS: INSULIN HUMAN NPH SC SCH (17:37)
[2019-05-07] MEDS: cefTRIAXone SODIUM 2,000 MG in DEXTROSE 5% 50 ML IV SCH (17:46)
[2019-05-07] MEDS: allopurinoL 300 MG TAB PO SCH (22:39)
[2019-05-08] MEDS: METOPROLOL TARTRATE 100 MG TAB PO SCH ×4 (05:33→21:54)
[2019-05-08] MEDS: LEVOTHYROXINE SODIUM 200 MCG TABLET PO SCH (05:33)
[2019-05-08] MEDS: LEVOTHYROXINE SODIUM 50 MCG TABLET PO SCH (05:33)
--- NOTE | 2019-05-08 06:22 | Progress Note ---
Date of Service May 08, 2019 Assessment & Plan (1) Abscess: vitals stable- intermittent tachy- pt alert , awake- more animated and responsive min pain- cellulitis resolving well Cont current wound care and atbx Results & Data Vital Signs (Past 12 Hours) Vital Signs Temp Pulse Pulse Resp BP Pulse Ox 05/08/19 04:40 36.5 C 115 H 21 137/74 90 05/08/19 02:00 75 05/08/19 00:03 37.3 C 76 24 118/65 98 05/07/19 22:28 75 24 95 05/07/19 18:59 36.8 C 115 H 20 113/68 89 L PG Care Time/CCT Total # of Minutes Spent Total Time Spent with Patient: Total time spent is greater than 50% in coordination of care (as documented) at patient's floor/unit and/or counseling patient:
[2019-05-08 06:23] LABS: Hematocrit (blood only) 36.7 % (42-52); Mean Corpuscular Hemoglobin 30.3 pg (25-34); Mean Corpuscular Hgb Conc 32.7 g/dL (32-36); Mean Corpuscular Volume 92.7 fL (80-100); Mean Platelet Volume 10.4 fL (7.4-10.4); Platelet Count 237 K/uL (130-400); RDW Coefficient of Variation 15.2 % (11.5-14.5); Red Blood Count 3.96 M/uL (4.7-6.1); White Blood Count 9.37 K/uL (4.8-10.8)
[2019-05-08 06:38] LABS: INR 2.8 (0.9-1.1); Prothrombin Time 26.3 Seconds (9.0-12.0)
[2019-05-08 06:56] LABS: BUN Creatinine Ratio 23.4 (10-20); Calcium 9.4 mg/dl (8.5-10.1); Creatinine Clr Calc Pharmacy 85.9 ml/min; Est GFR (African American) 57.8; Est GFR (Non-African American) 49.9; Magnesium 1.9 mg/dl (1.8-2.4); Potassium 3.9 mmol/L (3.5-5.1)
[2019-05-08] MEDS: FUROSEMIDE 80 MG TAB PO SCH ×2 (09:04→17:44)
[2019-05-08] MEDS: GABAPENTIN 100 MG CAP PO SCH ×3 (09:04→21:53)
[2019-05-08] MEDS: MAGNESIUM OXIDE 400 MG TAB PO SCH (09:04)
[2019-05-08] MEDS: CHOLECALCIFEROL 1,000 UNITS TAB PO SCH (09:05)
[2019-05-08] MEDS: BuPROPion XL 150 MG TABCR PO SCH (09:05)
[2019-05-08] MEDS: POTASSIUM CHLORIDE 10 MEQ TABCR PO SCH (09:05)
[2019-05-08] MEDS: ATORVASTATIN 10 MG TAB PO SCH (09:05)
[2019-05-08] MEDS: ASPIRIN 81 MG CHEW PO SCH (09:05)
[2019-05-08] MEDS: DULOXETINE HCL 60 MG CAP PO SCH (09:05)
[2019-05-08] MEDS: PANTOprazole 40 MG TAB PO SCH (09:06)
[2019-05-08] MEDS: NYSTATIN SUSP 500,000 U/5 ML UDC PO SCH ×4 (09:06→21:53)
[2019-05-08] MEDS: INSULIN ASPART 100 UNITS/ML 3 ML PEN SC SCH ×4 (09:07→21:57)
[2019-05-08] MEDS: INSULIN HUMAN NPH SC SCH ×2 (09:10→16:54)
[2019-05-08] MEDS: DOCUSATE SODIUM/SENNA 50/8.6MG TAB PO SCH ×2 (10:16→21:56)
--- NOTE | 2019-05-08 10:32 | Pharmacy Report ---
Pharmacy Glycemic Short Note 2 - Date of Service May 08, 2019 - Glycemic Short BSG Results (Last 24 hours): 05/07/19 05/07/19 05/07/19 11:20 16:14 20:38 Glucose POC Glucose 250 H 224 H 214 H 05/08/19 05/08/19 06:01 07:08 Glucose 200 H POC Glucose 198 H Outpatient Anti-diabetic Regimen: U-500 insulin pump * Per outpatient data obtained from previous admission in June 2018 * Total daily outpatient basal dose is ~70 units/day *of U-500* which is equivalent to about 350 units/day of U-100 insulin * Non-adherence noted - patient often forgets to provide additional bolus doses for prandial coverage A1c = 9.5 % on 04/27/19 Risk Factors for Insulin Resistance: * Infection: MSSA bacteremia 2nd SSTI * Diet: T2DM ASSESSMENT: 05/08 * BSGs have been above goal since transitioning to NPH + Novolog. This could be due to lower daily dose given on 05/06 and/or different kinetics with change in insulins. * Will adjust regimen today to an est TDD between 175-200 units * Important for well controlled BSGs in the setting of current infection 05/07 * Mr. Andujar received 111 units of insulin yesterday, with fairly stable BSGs * He was febrile overnight and was noted to be in a fib again * Since daily insulin requirements remain much less than U500 requirements, will plan to transition to NPH + Novolog. This will allow for easier titration without use of U500, which contains both bolus and basal properties. * Est TDD of insulin 130-150 units 05/06 * Patient was transitioned off the IV insulin infusion on 05/03. He was given two doses of U-500 (40 units each). BSGs decreased into the 70-80s. His oral intake was poor at this time and was likely the cause of low BSG despite conservative U-500 doses. He was then switched to Lantus + Novolog on 05/04 to capture prandial needs. Oral intake improved significantly on 05/04 and 05/05 therefore it seemed reasonable to resume U-500. * Based on past admission data, pt tends to show stacking with TID U-500 dosing. Will trial utilizing BID dosing. If patient has adequate glycemic control on BID dosing, we could switch to NPH as this has similar kinetics. * He received a total of 156 units of insulin yesterday (120 units of this was U-500). I will decrease U-500 dosing by ~20-25%. BSG check with coverage added for midnight incase dose reduction is too aggressive. Plan * NPH BID per the following scale: - increase * 40 units for BSG < 150 * 50 units for BSG 150 or above * Novolog ACHS - tighten CF/CR -> will need to loosen once more basal on board * Goal 110-140 mg/dL * Correction factor: 6 mg/dL/unit * Carb ratio: 1 unit per 2.5 gm CHO consumed Discharge Recommendations: * Transition to U500 pump on discharge as A1c has improved * CDE already spoke w/ patient about limiting intake of sugary drinks
[2019-05-08] MEDS: cefTRIAXone SODIUM 2,000 MG in DEXTROSE 5% 50 ML IV SCH (17:43)
[2019-05-08] MEDS: DIGOXIN 0.125 MG TAB PO SCH (17:44)
[2019-05-08] MEDS ORDERED: WARFARIN SOD 2 MG TAB PO ONE (18:03)
--- NOTE | 2019-05-08 18:03 | Hospitalist Progress Note ---
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, ID, Surgery Input Needs to continue Rocephin 2 g IV daily for 4 weeks Day # 02/06 Needs weekly CBC, CMP, ESR while on antibiotics No further surgical intervention planned as per surgery Continue wound care: Wet to dry dressing with moist saline gauze Vs Kerflex Continue PT/OT Surgery following Acute kidney injury on CKD III Likely ATN secondary to sepsis Creatinine slightly up today Monitor renal function Avoid nephrotoxic agents as able (2) Lactic acidosis: Admission lactic acid 6.6 lactic acidosis resolved (3) Decubitus ulcer: Present on admission of necrosis of right buttock ulceration Operation Date: 04/26/19: s/p Debridement necrotic right buttock ulceration; drainage of perirectal abscess; incision of thrombosed hemorrhoid management of ulcers as above (4) Atrial fibrillation with RVR: secondary to sepsis and metabolic derangements Continue metoprolol, digoxin IV heparin discontinued Monitor INR:2.7>> 3.7>>2.8 Resume coumadin No bleeding issues Metoprolol dose increased to 100 mg every 6 hours for better rate control Requested cardiology to follow-up (5) Elevated troponin: Elevated troponins on this admission from demand ischemia due to to sepsis and atrial fibrillation with rapid ventricular response Echocardiogram on 04/28/19 was not well visualized Denies Angina symptoms (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 (7) Pacemaker: Pacemaker in place and functioning appropriately as per cardiology evaluation (8) Chronic diastolic CHF (congestive heart failure): H/O Non ischemic Cardiomyopathy Echo 11/2018: Mildly reduced EF, grade 1 diastolic dysfunction Continue Lasix 80 mg twice daily Monitor volume status (9) Acute kidney injury superimposed on CKD: Management as above (10) CKD (chronic kidney disease) stage 3, GFR 30-59 ml/min: Rhabdomyolysis CK: creatinine kinase peaked above 3000 CK levels trended down Hypokalemia Hypomagnesemia Hypophosphatemia Replace electrolytes as needed (11) Diabetes mellitus, type 2: Type 2 diabetes mellitus with penitentiary current use of insulin and with hyperglycemia Mild Diabetic Ketoacidosis Patient presenting from home with generalized weakness and frequent falls for the past 3 days prior to admission with insulin pump became disconnected at some point in time throughout the night and patient was unable to reconnect Appreciate pharmacy glycemic consult Continue Insulin Therapy Transaminitis 04/26/19 liver ultrasound Exam is compromised suboptimal penetration. The liver is enlarged and echogenic. Pancreas is obscured by overlying bowel gas. Caliber of the common bile duct is at the upper limits of normal following ch olecystectomy, measuring 7 mm. There is a small fluid-filled structure within the cholecystectomy bed which may reflect a small gallbladder remnant. There is no right hydronephrosis LFTs improved monitor (12) Hypothyroidism: continue levothyroxine (13) COPD, moderate: Stable (14) SALAS (obstructive sleep apnea): CPAP QHS (15) History of pulmonary embolism: H/O PE H/O Depression continue home meds Nocturnal hypoxemia On 2 L of oxygen at bedtime Continue supplemental oxygen as needed Morbid Obesity BMI:53 (16) DVT prophylaxis: On Coumadin Code Status Full Code Family Contact: daughter Bing [phone] daughter Tatyana sister Enrike [phone] Subjective Patient is seen and examined at bedside In afib, rate controlled No new complaints INR therapeutic, no bleeding issues Denies any pain of right buttock wound, chest pain, SOB, dizziness, nausea, abdominal pain Review of Systems Review of Systems: All systems reviewed & are unremarkable except as noted in HPI & below Physical Exam Physical Exam: Physical Exam: Vitals signs as noted above General Appearance:Morbidly Obese, no apparent distress Head: normocephalic, Atraumatic Eyes: normal inspection, EOMI Neck: supple, Trachea midline Respiratory/Chest: Normal breath sounds, CTA Cardiovascular: Irregularly irregular, No murmur Abdomen/GI:Soft, Non tender, Bowel sounds present Extremities/Musculoskelatal:normal inspection, chronic venous stasis changes lower extremities, edema Neurologic/Psych:AAOX3, grossly no focal neurological deficits Skin: normal color, warm, R buttock wound in dressing Results & Data Vital Signs (Past 12 Hours) Vital Signs Temp Pulse Pulse Resp BP Pulse Ox 05/08/19 17:44 90 05/08/19 15:48 36.5 C 77 16 145/73 H 93 05/08/19 10:40 36.7 C 77 18 129/74 92 05/08/19 08:00 103 H 05/08/19 06:43 37.0 C 102 H 20 128/68 99 Laboratory Results Short CBC 05/08/19 Range/Units 06:01 WBC 9.37 (4.8-10.8) K/uL Hgb 12.0 L (14.0-18.0) g/dL Hct 36.7 L (42-52) % Plt Count 237 (130-400) K/uL BMP 05/08/19 06:01 Sodium 131 L Potassium 3.9 Chloride 94 L Carbon Dioxide 28 BUN 34 H D Creatinine 1.44 H D Glucose 200 H Calcium 9.4 (1) Diabetes mellitus, type 2 Diabetes mellitus penitentiary insulin use: with penitentiary use Diabetes mellitus complication status: with kidney complications Diabetes mellitus complication detail: with chronic kidney disease Chronic kidney disease stage: stage 3 (moderate) Qualified Code(s): E11.22 - Type 2 diabetes mellitus with diabetic chronic kidney disease; N18.3 - Chronic kidney disease, stage 3 (moderate); Z79.4 - USP (current) use of insulin (2) Hypothyroidism Hypothyroidism type: unspecified Qualified Code(s): E03.9 - Hypothyroidism, unspecified
[2019-05-08] MEDS: ACETAMINOPHEN 325 MG TAB PO PRN (18:25)
[2019-05-08] MEDS: allopurinoL 300 MG TAB PO SCH (21:54)
[2019-05-09] MEDS: LEVOTHYROXINE SODIUM 50 MCG TABLET PO SCH (05:29)
[2019-05-09] MEDS: LEVOTHYROXINE SODIUM 200 MCG TABLET PO SCH (05:29)
[2019-05-09] MEDS: METOPROLOL TARTRATE 100 MG TAB PO SCH ×3 (05:29→21:24)
[2019-05-09 07:20] LABS: INR 2.3 (0.9-1.1); Prothrombin Time 22.1 Seconds (9.0-12.0)
--- NOTE | 2019-05-09 07:37 | Surgery Progress Note ---
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 Wound overall looks well Continue current care with wet-to-dry kerlex with normal saline, ABD, and medipore tape Change daily and PRN, especially after patient has a BM to ensure wound stays as clean as possible As wound continues to heal and decrease in size there is hope for potential wound vac placement in the future If able, please obtain wound measurements with next dressing change Patient seen and examined with Dr. Ortiz Subjective Patient offers no complaints this AM. Agreeable to changing buttock dressing. Physical Exam Physical Exam: sleepy, but easily arousable and communicative Skin: buttock dressing changed. wound bed clean with viable tissue, dressing providing adequate debridement. kerlex gauze with serosang. drainage Results & Data Vital Signs (Past 12 Hours) Vital Signs Temp Pulse Pulse Resp BP Pulse Ox 05/09/19 07:02 36.9 C 70 22 132/77 95 05/09/19 03:08 36.6 C 75 21 129/79 94 05/09/19 01:30 75 21 97 05/08/19 23:49 75 05/08/19 23:03 37.2 C 82 20 127/77 99 05/08/19 22:21 80 21 96 05/08/19 19:54 36.4 C L 82 24 138/87 94 PG Care Time/CCT Total # of Minutes Spent Total Time Spent with Patient: Total time spent is greater than 50% in coordination of care (as documented) at patient's floor/unit and/or counseling patient:
[2019-05-09 07:42] LABS: BUN Creatinine Ratio 27.5 (10-20); Calcium 9.4 mg/dl (8.5-10.1); Creatinine Clr Calc Pharmacy 100.1 ml/min; Est GFR (African American) 70.7; Potassium 3.5 mmol/L (3.5-5.1)
[2019-05-09] MEDS: DULOXETINE HCL 60 MG CAP PO SCH (08:01)
[2019-05-09] MEDS: MAGNESIUM OXIDE 400 MG TAB PO SCH (08:01)
[2019-05-09] MEDS: CHOLECALCIFEROL 1,000 UNITS TAB PO SCH (08:01)
[2019-05-09] MEDS: ATORVASTATIN 10 MG TAB PO SCH (08:01)
[2019-05-09] MEDS: FUROSEMIDE 80 MG TAB PO SCH ×2 (08:01→16:52)
[2019-05-09] MEDS: PANTOprazole 40 MG TAB PO SCH (08:01)
[2019-05-09] MEDS: ASPIRIN 81 MG CHEW PO SCH (08:02)
[2019-05-09] MEDS: BuPROPion XL 150 MG TABCR PO SCH (08:02)
[2019-05-09] MEDS: NYSTATIN SUSP 500,000 U/5 ML UDC PO SCH ×4 (08:02→21:25)
[2019-05-09] MEDS: POTASSIUM CHLORIDE 10 MEQ TABCR PO SCH (08:02)
[2019-05-09] MEDS: GABAPENTIN 100 MG CAP PO SCH ×3 (08:02→21:25)
[2019-05-09] MEDS: DOCUSATE SODIUM/SENNA 50/8.6MG TAB PO SCH ×2 (08:03→21:26)
[2019-05-09] MEDS: INSULIN ASPART 100 UNITS/ML 3 ML PEN SC SCH ×4 (08:03→21:22)
[2019-05-09] MEDS: INSULIN HUMAN NPH SC SCH ×2 (08:05→17:32)
--- NOTE | 2019-05-09 08:39 | Pharmacy Report ---
Pharmacy Glycemic Short Note 2 - Date of Service May 09, 2019 - Glycemic Short BSG Results (Last 24 hours): 05/08/19 05/08/19 05/08/19 10:50 16:23 20:57 Glucose POC Glucose 235 H 161 H 124 H 05/09/19 05/09/19 06:47 06:58 Glucose 126 H POC Glucose 135 H Outpatient Anti-diabetic Regimen: U-500 insulin pump * Per outpatient data obtained from previous admission in June 2018 * Total daily outpatient basal dose is ~70 units/day *of U-500* which is equivalent to about 350 units/day of U-100 insulin * Non-adherence noted - patient often forgets to provide additional bolus doses for prandial coverage A1c = 9.5 % on 04/27/19 Risk Factors for Insulin Resistance: * Infection: MSSA bacteremia 2nd SSTI * Recent surgery: wound debridement earlier this admission (not likely affecting glycemic regimen at this time). Surgery following. * Diet: T2DM ASSESSMENT: * BSG's responded well after increasing NPH dose and tightening correction factor yesterday, with BSG's ranging 124-161 mg/dL since that change * OK to loosen Novolog correction factor back to previous now that increased NPH dose is fully on-board * NPH as basal insulin seems to be working for now. No need to switch back to home U-500 insulin at this time Plan * NPH BIDM per the following scale * 40 units for BSG less than 120 mg/dL * 50 units for BSG 120 mg/dL or above * Novolog ACHS * Goal 110-140 mg/dL * Loosen Correction factor: 8 mg/dL/unit * Carb ratio: 1 unit per 2.5 gm CHO consumed Discharge Recommendations: * Transition to U500 pump on discharge as A1c has improved * CDE already spoke w/ patient about limiting intake of sugary drinks
--- NOTE | 2019-05-09 13:26 | Cardiology Progress Note ---
Date of Service May 09, 2019 Assessment & Plan (1) Atrial fibrillation with rapid ventricular response: Per review of the patient's admission history and physical prior to this admission with sepsis, he was on metoprolol tartrate 150 mg every a.m. and 100 mg every p.m. In preparation for rehab, recommend we transition him to metoprolol tartrate 150 mg twice daily. Continue current dose of digoxin 0.125 mg daily. Terms of stroke prophylaxis, his INR is therapeutic at 2.3, recommend we continue the same dose of Coumadin. (2) Chronic diastolic CHF (congestive heart failure): The patient's volume status appears to be stable clinically. He is on his prior to hospital dose of furosemide 80 mg twice daily. Kidney function is stable. Add back his prior to hospital dose of Aldactone 12.5 mg daily. He was on metolazone 2.5 mg weekly on Saturdays, and will plan to continue this as an outpatient at time of discharge/transfer to rehab. Subjective Chief complaint: Follow-up atrial fibrillation, chronic diastolic heart failure Subjective: Patient feeling well. On telemetry, he had reverted back to atrial fibrillation the evening of 05/06/2019 1825. Ventricular rates have been elevated, until his metoprolol had been increased. He is currently receiving metoprolol tartrate 100 mg every 6 hours along with his oral digoxin. Atrial fibrillation with ventricular rates in the range of 80 to 90 bpm with occasional demand ventricular pacing noted on telemetry at present. Patient does not feel that he is in atrial fibrillation. Review of Systems Review of Systems: All systems reviewed & are unremarkable except as noted in HPI & below Physical Exam Physical Exam: Temp Pulse Resp BP Pulse Ox 36.8 C 75 22 105/64 97 05/09/19 11:12 05/09/19 11:12 05/09/19 11:12 05/09/19 11:12 05/09/19 11:12 Constitutional: WD/WN, vitals as above Respiratory: normal respiratory effort, lungs clear to auscultation Cardiovascular: RRR, no murmur, no edema Gastrointestinal (Abdomen): normal bowel sounds, soft, nontender, no hepatosplenomegaly Neurologic: PERRL, EOMI, accommodation nl, no face palsy, no dysarthria Results & Data Vital Signs (Past 12 Hours) Vital Signs Temp Pulse Pulse Resp BP Pulse Ox 05/09/19 11:12 36.8 C 75 22 105/64 97 05/09/19 07:36 76 05/09/19 07:02 36.9 C 70 22 132/77 95 05/09/19 03:08 36.6 C 75 21 129/79 94 05/09/19 01:30 75 21 97 Laboratory Results Coagulation 05/09/19 Range/Units 06:47 PT 22.1 H (9.0-12.0) Seconds Comprehensive Metabolic Panel 05/09/19 Range/Units 06:47 Sodium 134 L (136-145) mmol/L Potassium 3.5 (3.5-5.1) mmol/L Chloride 96 L (98-107) mmol/L Carbon Dioxide 32 (21-32) mmol/L BUN 34 H (7-18) mg/dl Creatinine 1.22 (0.6-1.4) mg/dl Glucose 126 H (70-99) mg/dl Calcium 9.4 (8.5-10.1) mg/dl Intake and Output 05/08/19 05/09/19 05/09/19 22:59 06:59 14:59 Intake Total 170 / 780 150 / 780 Output Total 1800 / 4875 1675 / 4875 Balance -1630 / -4095 -1525 / -4095 Intake: IV 70 / 70 Rocephin 2,000 mg In D5w 50 ml 70 / 70 @ 140 mls/hr IV DAILY@1800 [facility] Rx#:[id number] Oral 100 / 710 150 / 710 Output: Urine Amount (Catheter) 1799 1675 / 4875 Valentine/Indwelling 1799 167 / 48 Other: Weight 195 kg
[2019-05-09] MEDS: SPIRONOLACTONE 25 MG TAB PO SCH (14:55)
[2019-05-09] MEDS ORDERED: TROLAMINE SALICYLATE 10% CRM 255 APPLN/85 GM TUBE EXT PRN (15:37)
[2019-05-09] MEDS ORDERED: WARFARIN SOD 2 MG TAB PO SCH (16:00)
[2019-05-09] MEDS: DIGOXIN 0.125 MG TAB PO SCH (16:51)
--- NOTE | 2019-05-09 18:22 | Hospitalist Progress Note ---
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 Input Needs to continue Rocephin 2 g IV daily for 4 weeks Day # 03/09 Needs weekly CBC, CMP, ESR while on antibiotics No further surgical intervention planned as per surgery Continue wound care: Wet to dry dressing with moist saline gauze Vs Kerflex Continue PT/OT Surgery following Continue current medications Acute kidney injury on CKD III Likely ATN secondary to sepsis Monitor renal function Avoid nephrotoxic agents as able (2) Lactic acidosis: Admission lactic acid 6.6 lactic acidosis resolved (3) Decubitus ulcer: Present on admission of necrosis of right buttock ulceration Operation Date: 04/26/19: s/p Debridement necrotic right buttock ulceration; drainage of perirectal abscess; incision of thrombosed hemorrhoid management of ulcers as above (4) Atrial fibrillation with RVR: secondary to sepsis and metabolic derangements Continue metoprolol, digoxin IV heparin discontinued Monitor INR:2.7>> 3.7>>2.8>>2.3 Continue coumadin No bleeding issues Metoprolol dose increased to 150 Mg BID Appreciate Cardiology Input (5) Elevated troponin: Elevated troponins on this admission from demand ischemia due to to sepsis and atrial fibrillation with rapid ventricular response Echocardiogram on 04/28/19 was not well visualized Denies Angina symptoms (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 (7) Pacemaker: Pacemaker in place and functioning appropriately as per cardiology evaluation (8) Chronic diastolic CHF (congestive heart failure): H/O Non ischemic Cardiomyopathy Echo 11/2018: Mildly reduced EF, grade 1 diastolic dysfunction Continue Lasix 80 mg twice daily Plan to resume Aldactone 12.5 mg daily Also was on metolazone 2.5 mg weekly, plan to resume upon discharge Monitor volume status (9) Acute kidney injury superimposed on CKD: Management as above (10) CKD (chronic kidney disease) stage 3, GFR 30-59 ml/min: Rhabdomyolysis CK: creatinine kinase peaked above 3000 CK levels trended down Hypokalemia Hypomagnesemia Hypophosphatemia Replace electrolytes as needed (11) Diabetes mellitus, type 2: Type 2 diabetes mellitus with rn long term care current use of insulin and with hyperglycemia Mild Diabetic Ketoacidosis Patient presenting from home with generalized weakness and frequent falls for the past 3 days prior to admission with insulin pump became disconnected at some point in time throughout the night and patient was unable to reconnect Appreciate pharmacy glycemic consult Continue Insulin Therapy Transaminitis 04/26/19 liver ultrasound Exam is compromised suboptimal penetration. The liver is enlarged and echogenic. Pancreas is obscured by overlying bowel gas. Caliber of the common bile duct is at the upper limits of normal following cholecystectomy, measuring 7 mm. There is a small fluid-filled structure within the cholecystectomy bed which may reflect a small gallbladder remnant. There is no right hydronephrosis LFTs improved monitor (12) Hypothyroidism: continue levothyroxine (13) COPD, moderate: Stable (14) SALAS (obstructive sleep apnea): CPAP QHS (15) History of pulmonary embolism: H/O PE H/O Depression continue home meds Nocturnal hypoxemia On 2 L of oxygen at bedtime Continue supplemental oxygen as needed Morbid Obesity BMI:53 (16) DVT prophylaxis: On Coumadin Code Status Full Code Disposition Needs rehab placement Family Contact: daughter Bing [phone] daughter Tatyana sister Enrike [phone] Subjective Patient is seen and examined at bedside Offers no complaints Discussed with Cardiology today In afib, rate controlled INR therapeutic Denies any pain of right buttock wound, chest pain, SOB, dizziness, nausea, abdominal pain Dressing change this morning Review of Systems Review of Systems: All systems reviewed & are unremarkable except as noted in HPI & below Results & Data Vital Signs (Past 12 Hours) Vital Signs Temp Pulse Pulse Resp BP Pulse Ox 05/09/19 16:51 76 05/09/19 15:24 36.6 C 74 16 127/71 93 05/09/19 11:12 36.8 C 75 22 105/64 97 05/09/19 07:36 76 05/09/19 07:02 36.9 C 70 22 132/77 95 Laboratory Results [facility] 05/09/19 06:47 Sodium 134 L Potassium 3.5 Chloride 96 L Carbon Dioxide 32 BUN 34 H Creatinine 1.22 Glucose 126 H Calcium 9.4 (1) Diabetes mellitus, type 2 Diabetes mellitus skilled nursing insulin use: with skilled nursing use Diabetes mellitus complication status: with kidney complications Diabetes mellitus complication detail: with chronic kidney disease Chronic kidney disease stage: stage 3 (moderate) Qualified Code(s): E11.22 - Type 2 diabetes mellitus with diabetic chronic kidney disease; N18.3 - Chronic kidney disease, stage 3 (moderate); Z79.4 - assisted (current) use of insulin (2) Hypothyroidism Hypothyroidism type: unspecified Qualified Code(s): E03.9 - Hypothyroidism, unspecified
[2019-05-09] MEDS: cefTRIAXone SODIUM 2,000 MG in DEXTROSE 5% 50 ML IV SCH (18:33)
[2019-05-09] MEDS: DICLOFENAC SOD 1% GEL 100 GM TUBE EXT SCH (21:25)
[2019-05-09] MEDS: allopurinoL 300 MG TAB PO SCH (21:26)
[2019-05-10] MEDS: LEVOTHYROXINE SODIUM 200 MCG TABLET PO SCH (05:29)
[2019-05-10] MEDS: LEVOTHYROXINE SODIUM 50 MCG TABLET PO SCH (05:29)
[2019-05-10] MEDS: ACETAMINOPHEN 325 MG TAB PO PRN (05:34)
[2019-05-10 07:04] LABS: INR 2.2 (0.9-1.1); Prothrombin Time 21.6 Seconds (9.0-12.0)
[2019-05-10 07:37] LABS: BUN Creatinine Ratio 26.2 (10-20); Calcium 9.1 mg/dl (8.5-10.1); Creatinine Clr Calc Pharmacy 101.6 ml/min; Est GFR (African American) 68.6; Est GFR (Non-African American) 59.2; Potassium 3.6 mmol/L (3.5-5.1)
[2019-05-10] MEDS ORDERED: INSULIN HUMAN NPH SC SCH (08:00)
[2019-05-10] MEDS: INSULIN ASPART 100 UNITS/ML 3 ML PEN SC SCH ×2 (08:48→13:12)
[2019-05-10] MEDS: FUROSEMIDE 80 MG TAB PO SCH (08:49)
[2019-05-10] MEDS: NYSTATIN SUSP 500,000 U/5 ML UDC PO SCH ×2 (08:49→13:12)
[2019-05-10] MEDS: CHOLECALCIFEROL 1,000 UNITS TAB PO SCH (08:49)
[2019-05-10] MEDS: SPIRONOLACTONE 25 MG TAB PO SCH (08:49)
[2019-05-10] MEDS: BuPROPion XL 150 MG TABCR PO SCH (08:49)
[2019-05-10] MEDS: GABAPENTIN 100 MG CAP PO SCH ×2 (08:49→13:12)
[2019-05-10] MEDS: PANTOprazole 40 MG TAB PO SCH (08:49)
[2019-05-10] MEDS: METOPROLOL TARTRATE 100 MG TAB PO SCH (08:49)
[2019-05-10] MEDS: ATORVASTATIN 10 MG TAB PO SCH (08:49)
[2019-05-10] MEDS: DULOXETINE HCL 60 MG CAP PO SCH (08:49)
[2019-05-10] MEDS: POTASSIUM CHLORIDE 10 MEQ TABCR PO SCH (08:49)
[2019-05-10] MEDS: MAGNESIUM OXIDE 400 MG TAB PO SCH (08:49)
[2019-05-10] MEDS: ASPIRIN 81 MG CHEW PO SCH (08:50)
[2019-05-10] MEDS: DICLOFENAC SOD 1% GEL 100 GM TUBE EXT SCH (08:50)
--- NOTE | 2019-05-10 10:12 | Surgery Progress Note ---
Date of Service May 10, 2019 Assessment & Plan (1) Diabetic ulcer of right buttock associated with type 2 diabetes mellitus, with necrosis of muscle: 05/10/19 Buttock wound dressing changed today with wound care and nursing assistance Surgical sutures removed and wound measurements taken Wound is overall healing well Continue daily and prn wet-to-dry dressing changes with kerlex moistened with NS, ABD, and medipore tape. Change especially after patient has a BM to keep wound as clean as possible Plan for patient to follow up in wound clinic as an outpatient. Hopeful for wound vac placement in the future as it continues to heal Patient seen and examined with Dr. Ortiz Subjective Patient visiting with daughter at bedside. Offers no complaints. Physical Exam Physical Exam: awake/alert Constitutional: well developed and well nourished; no acute distress Skin: wound bed overall clean with viable tissue. area of surrounding cellulitis improved. kerlex gauze with sero.sang drainage Results & Data Vital Signs (Past 12 Hours) Vital Signs Temp Pulse Resp BP Pulse Ox 05/10/19 07:28 36.8 C 58 L 18 114/68 95 05/10/19 04:18 36.5 C 70 22 131/78 94 05/10/19 00:04 36.7 C 71 22 130/82 94 PG Care Time/CCT Total # of Minutes Spent Total Time Spent with Patient: Total time spent is greater than 50% in coordination of care (as documented) at patient's floor/unit and/or counseling patient:
--- NOTE | 2019-05-10 10:26 | Pharmacy Report ---
Pharmacy Glycemic Short Note 2 - Date of Service May 10, 2019 - Glycemic Short BSG Results (Last 24 hours): 05/09/19 05/09/19 05/09/19 11:19 16:04 20:18 Glucose POC Glucose 160 H 167 H 153 H 05/10/19 05/10/19 06:38 07:31 Glucose 170 H POC Glucose 176 H Outpatient Anti-diabetic Regimen: U-500 insulin pump * Per outpatient data obtained from previous admission in June 2018 * Total daily outpatient basal dose is ~70 units/day *of U-500* which is equivalent to about 350 units/day of U-100 insulin * Non-adherence noted - patient often forgets to provide additional bolus doses for prandial coverage A1c = 9.5 % on 04/27/19 Risk Factors for Insulin Resistance: * Infection: MSSA bacteremia 2nd SSTI * Recent surgery: wound debridement earlier this admission (not likely affecting glycemic regimen at this time). Surgery following. * Diet: T2DM ASSESSMENT: * BSG's ranged 135-167 mg/dL yesterday after total of 100 units NPH (split BIDM) and 77 units Novolog (split TIDM) * AM fasting BSG slightly above goal today at 176 mg/dL - will increase AM NPH dose x1 * NPH as basal insulin seems to be working for now. No need to switch back to home U-500 insulin at this time Plan * NPH 60 units x1 this AM then resume BIDM per the following scale * 40 units for BSG less than 120 mg/dL * 50 units for BSG 120 mg/dL or above * Novolog ACHS * Goal 110-140 mg/dL * Correction factor: 8 mg/dL/unit * Carb ratio: 1 unit per 2.5 gm CHO consumed Discharge Recommendations: * Transition to U500 pump on discharge as A1c has improved * CDE already spoke w/ patient about limiting intake of sugary drinks
[2019-05-10 11:21] VITALS: TEMP 98.1
--- NOTE | 2019-05-10 11:32 | Cardiology Progress Note ---
Date of Service May 10, 2019 Assessment & Plan (1) Atrial fibrillation with rapid ventricular response: Continue recent adjusted dose of metoprolol tartrate, 150 mg twice daily. Continue prior to hospital dose of digoxin 0.125 mg p.o. daily. Regarding stroke prophylaxis, his INR is therapeutic at 2.2, continue Coumadin. (2) Chronic diastolic CHF (congestive heart failure): The patient's volume status appears to be stable clinically. He is on his prior to hospital dose of furosemide 80 mg twice daily. Kidney function is stable. Potassium stable 3.6, prior to hospital dose of spironolactone 12.5 mg added back yesterday 05/09/2019. The patient does take metolazone 2.5 mg weekly on Saturdays as an outpatient, and this will need to be reinitiated at time of discharge. Valentine catheter is in place, will need to proceed with voiding trial prior to consideration of discharge. Subjective Chief complaint: Follow-up atrial fibrillation Subjective: Patient feeling well. Remains in bed. Valentine catheter in place draining clear romel urine. Telemetry reveals ongoing atrial fibrillation, the rates are much improved however, down to 70 bpm with occasional demand ventricular pacing. Review of Systems Review of Systems: All systems reviewed & are unremarkable except as noted in HPI & below Physical Exam Physical Exam: Temp Pulse Resp BP Pulse Ox 36.7 C 74 18 118/73 93 05/10/19 11:20 05/10/19 11:20 05/10/19 11:20 05/10/19 11:20 05/10/19 11:20 Constitutional: + morbidly obese Respiratory: normal respiratory effort, lungs clear to auscultation Cardiovascular: Distant heart sounds, no murmurs, no edema, no jugular venous distention Gastrointestinal (Abdomen): normal bowel sounds, soft, nontender, no hepatosplenomegaly Neurologic: PERRL, EOMI, accommodation nl, no face palsy, no dysarthria Results & Data Vital Signs (Past 12 Hours) Vital Signs Temp Pulse Resp BP Pulse Ox 05/10/19 11:20 36.7 C 74 18 118/73 93 05/10/19 07:28 36.8 C 58 L 18 114/68 95 05/10/19 04:18 36.5 C 70 22 131/78 94 05/10/19 00:04 36.7 C 71 22 130/82 94
[2019-05-10] MEDS: DOCUSATE SODIUM/SENNA 50/8.6MG TAB PO SCH (11:44)
--- NOTE | 2019-05-10 13:57 | Hospitalist Progress Note ---
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 Input Needs to continue Rocephin 2 g IV daily for 4 weeks Day # 04/09 Needs weekly CBC, CMP, ESR while on antibiotics Continue PT/OT Continue wound care daily and PRN: wet-to-dry dressing changes with kerlex moistened with NS, ABD, and medipore tape-- as per surgery Needs follow up with Wound clinic as outpatient May need wound vac placement eventually Needs rehab placement Acute kidney injury on CKD III Likely ATN secondary to sepsis Monitor renal function Avoid nephrotoxic agents as able (2) Lactic acidosis: Admission lactic acid 6.6 lactic acidosis resolved (3) Decubitus ulcer: Present on admission of necrosis of right buttock ulceration Operation Date: 04/26/19: s/p Debridement necrotic right buttock ulceration; drainage of perirectal abscess; incision of thrombosed hemorrhoid management of ulcers as above (4) Atrial fibrillation with RVR: secondary to sepsis and metabolic derangements Continue metoprolol, digoxin IV heparin discontinued Monitor INR:2.7>> 3.7>>2.8>>2.2 Continue coumadin No bleeding issues Metoprolol dose increased to 150 Mg BID Appreciate Cardiology Input (5) Elevated troponin: Elevated troponins on this admission from demand ischemia due to to sepsis and atrial fibrillation with rapid ventricular response Echocardiogram on 04/28/19 was not well visualized Denies Angina symptoms (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 (7) Pacemaker: Pacemaker in place and functioning appropriately as per cardiology evaluation (8) Chronic diastolic CHF (congestive heart failure): H/O Non ischemic Cardiomyopathy Echo 11/2018: Mildly reduced EF, grade 1 diastolic dysfunction Continue Lasix 80 mg twice daily Continue Aldactone 12.5 mg daily Plan to resume metolazone 2.5 mg weekly upon discharge Monitor volume status (9) Acute kidney injury superimposed on CKD: Management as above (10) CKD (chronic kidney disease) stage 3, GFR 30-59 ml/min: Rhabdomyolysis CK: creatinine kinase peaked above 3000 CK levels trended down Hypokalemia Hypomagnesemia Hypophosphatemia Replace electrolytes as needed (11) Diabetes mellitus, type 2: 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 The liver is enlarged and echogenic. Pancreas is obscured by overlying bowel gas. Caliber of the common bile duct is at the upper limits of normal following cholecystectomy, measuring 7 mm. There is a small fluid-filled structure within the cholecystectomy bed which may reflect a small gallbladder remnant. There is no right hydronephrosis LFTs improved monitor (12) Hypothyroidism: continue levothyroxine (13) COPD, moderate: Stable (14) SALAS (obstructive sleep apnea): CPAP QHS (15) History of pulmonary embolism: H/O PE H/O Depression continue home meds Nocturnal hypoxemia On 2 L of oxygen at bedtime Continue supplemental oxygen as needed Morbid Obesity BMI:53 (16) DVT prophylaxis: On Coumadin Code Status Full Code Disposition Needs rehab placement Family Contact: daughter Bing [phone] daughter Tatyana sister Enrike [phone] Subjective Patient is seen and examined at bedside Had dressing change this morning Surgical sutures were removed Patient states feeling well In afib, rate controlled INR therapeutic Renal function stable No family at bedside Denies any pain of right buttock wound, chest pain, SOB, dizziness, nausea, abdominal pain Review of Systems Review of Systems: All systems reviewed & are unremarkable except as noted in HPI & below Physical Exam Physical Exam: Physical Exam: Vitals signs as noted above General Appearance:Morbidly Obese, no apparent distress Head: normocephalic, Atraumatic Eyes: normal inspection, EOMI Neck: supple, Trachea midline Respiratory/Chest: Normal breath sounds, CTA Cardiovascular: Irregularly irregular, No murmur Abdomen/GI:Soft, Non tender, Bowel sounds present Extremities/Musculoskelatal:normal inspection, chronic venous stasis changes l ower extremities, edema Neurologic/Psych:AAOX3, grossly no focal neurological deficits Skin: normal color, warm, R buttock wound in dressing Results & Data Vital Signs (Past 12 Hours) Vital Signs Temp Pulse Resp BP Pulse Ox 05/10/19 11:20 36.7 C 74 18 118/73 93 05/10/19 07:28 36.8 C 58 L 18 114/68 95 05/10/19 04:18 36.5 C 70 22 131/78 94 Laboratory Results [facility] 05/10/19 06:38 Sodium 134 L Potassium 3.6 Chloride 96 L Carbon Dioxide 31 BUN 33 H Creatinine 1.25 Glucose 170 H Calcium 9.1 (1) Diabetes mellitus, type 2 Chronic kidney disease stage: stage 3 (moderate) Diabetes mellitus complication detail: with chronic kidney disease Diabetes mellitus complication status: with kidney complications Diabetes mellitus terminal system operator insulin use: with terminal system operator use Qualified Code(s): E11.22 - Type 2 diabetes mellitus with diabetic chronic kidney disease; N18.3 - Chronic kidney disease, stage 3 (moderate); Z79.4 - MCC (current) use of insulin (2) Hypothyroidism Hypothyroidism type: unspecified Qualified Code(s): E03.9 - Hypothyroidism, unspecified
[2019-05-10 14:46] VITALS: PULSE 68
--- NOTE | 2019-05-10 15:12 | Discharge Summary ---
Date of Service May 10, 2019 Admission HPI Per Admitting Provider 69-year-old male who presents to the ED for evaluation of generalized weakness. Patient lives home alone with assistance from [employer] [facility] program. Patient reports that 3 days ago, he developed tremors weakness. He reports that he has had multiple falls. He denies any loss of consciousness. He has not taken his medications for the past few days. Last evening, his insulin pump became disconnected at some point and patient was unable to reattach it. His operations and maintenance specialist came to the house today and found him in bed where he was looking very ill and ambulance was called and patient was brought to the ED for further evaluation. While patient denied nausea and vomiting to me, he has admitted to some nausea and vomiting with other providers. No abdominal pain. He reports he typically does weigh himself on a daily basis however has not done so in the past few days due to his illness. Prior to that, weights been stable. He denies any worsening lower extremity edema. Denies chest pain shortness of b reath. He has been feeling lightheaded and dizzy however no syncopal event. Denies fevers and chills. No urinary symptoms. Upon arrival to the ER, patient was found to be in A. fib with RVR with heart rates in the 140s. BP initially mildly hypotensive at 98/60. Labs show WBC 15 K, creatinine 2.7, lactic acid 6.6, glucose 521, elevated LFTs, troponin 0.117. Patient was given 1.5 L NSS, IV Zosyn, IV digoxin. Admission Exam Per Admitting Provider Constitutional: WD/WN, vitals as above + ill appearing and + obese; no acute distress Eyes: PERRL, conjunctivae normal, anicteric sclerae ENMT: Ears: no external ear abnormality Nose: no external nose abnormality Mouth: + dry oral mucous membranes Respiratory: normal respiratory effort; no respiratory distress Auscultation: + diminished lung sounds Cardiovascular: Rate/Rhythm: + tachycardic and + irregularly irregular Vessels: normal peripheral pulses Extremities: + edema (+1-2 BLE) Gastrointestinal (Abdomen): normal bowel sounds, soft, nontender, no hepatosplenomegaly Musculoskeletal: no cyanosis or clubbing, extremities motor strength 5/5 Skin: no rashes, warm and dry Unstageable/DTI decubitus ulcer noted to right buttock; chronic venous changes BLE Neurologic: PERRL, EOMI, accommodation nl, no face palsy, no dysarthria Psychiatric: A+Ox3, euthymic affect Principal Diagnosis Severe Sepsis Staphylococcus Bacteremia Diabetic ulcer of right buttock associated with type 2 diabetes mellitus, with necrosis of muscle Acute on chronic respiratory failure Acute kidney injury Atrial fibrillation with rapid ventricular rate Rhabdomyolysis Transaminitis Morbid obesity Discharge Data Allergies Allergy/AdvReac Type Severity Reaction Status Date / Time No Known Drug Allergies Allergy Verified 04/26/19 10:39 Consultations 04/26/19 11:46 ED Decision to Admit Stat 04/26/19 14:10 Consult Cardiology Routine Consult Case Management - Discharge Planning Routine 04/26/19 15:42 Consult Cheese Cook Routine 04/29/19 08:00 Consult Infectious Diseases Routine Procedures Performed Operation Date: 04/26/19 17:40 Actual Procedures s Debridement necrotic right buttock ulceration; (Right) - Ino Ortiz MD p drainage of perirectal abscess; incision of thrombosed hemorrhoid - Ino Ortiz MD CXR: Mild pulmonary vascular congestion. No evidence of focal pulmonary consolidation Liver USD: 1. Fatty infiltration of the liver and hepatomegaly. 2. Exam compromised by suboptimal penetration. Obscured pancreas. 3. No biliary ductal dilatation following cholecystectomy. 4. Fluid-filled structure within the gallbladder fossa which is nonspecific but may reflect a gallbladder remnant. Ordered Studies 04/26/19 15:50 US liver Urgent 04/26/19 17:44 US point of care ultrasound Routine Hospital Course (1) Sepsis: Severe Sepsis Staph aureus bacteremia Right buttock ulceration/necrosis S/P urgent debridement on 04/27/19 S/P Extubation on 05/01/19 S/P Wound suture removal on 05/10/19 Blood Cultures from 04/26/2019: Staph aureus--MSSA Wound culture: Staph aureus Repeat blood cultures from 04/29/2019 and 05/07/19 : No growth IV vancomycin, Zosyn transitioned to ceftriaxone only Appreciate staining machine operator, ID, Surgery Input Needs to continue Rocephin 2 g IV daily for 4 weeks Day # 9/28 Needs weekly CBC, CMP, ESR while on antibiotics Continue PT/OT Continue wound care daily and PRN: wet-to-dry dressing changes with kerlex moistened with NS, ABD, and medipore tape-- as per surgery Needs follow up with Wound clinic as outpatient May need wound vac placement eventually Needs rehab placement Acute kidney injury on CKD III Likely ATN secondary to sepsis Monitor renal function Avoid nephrotoxic agents as able (2) Lactic acidosis: Admission lactic acid 6.6 lactic acidosis resolved (3) Decubitus ulcer: Present on admission of necrosis of right buttock ulceration Operation Date: 04/26/19: s/p Debridement necrotic right buttock ulceration; drainage of perirectal abscess; incision of thrombosed hemorrhoid management of ulcers as above (4) Atrial fibrillation with RVR: secondary to sepsis and metabolic derangements Continue metoprolol, digoxin IV heparin discontinued Monitor INR:2.7>> 3.7>>2.8>>2.2 Continue coumadin No bleeding issues Metoprolol dose increased to 150 Mg BID Appreciate Cardiology Input (5) Elevated troponin: Elevated troponins on this admission from demand ischemia due to to sepsis and atrial fibrillation with rapid ventricular response Echocardiogram on 04/28/19 was not well visualized Denies Angina symptoms (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 (7) Pacemaker: Pacemaker in place and functioning appropriately as per cardiology evaluation (8) Chronic diastolic CHF (congestive heart failure): H/O Non ischemic Cardiomyopathy Echo 11/2018: Mildly reduced EF, grade 1 diastolic dysfunction Continue Lasix 80 mg twice daily Continue Aldactone 12.5 mg daily Plan to resume metolazone 2.5 mg weekly upon discharge Monitor volume status (9) Acute kidney injury superimposed on CKD: Management as above (10) CKD (chronic kidney disease) stage 3, GFR 30-59 ml/min: Rhabdomyolysis CK: creatinine kinase peaked above 3000 CK levels trended down Hypokalemia Hypomagnesemia Hypophosphatemia Replace electrolytes as needed (11) Diabetes mellitus, type 2: Type 2 diabetes mellitus with long term care administrator current use of insulin and with hyperglycemia Mild Diabetic Ketoacidosis Patient presenting from home with generalized weakness and frequent falls for the past 3 days prior to admission with insulin pump became disconnected at some point in time throughout the night and patient was unable to reconnect Appreciate pharmacy glycemic consult Continue Insulin Therapy Transaminitis 04/26/19 liver ultrasound Exam is compromised suboptimal penetration. The liver is enlarged and echogenic. Pancreas is obscured by overlying bowel gas. Caliber of the common bile duct is at the upper limits of normal following cholecystectomy, measuring 7 mm. There is a small fluid-filled structure within the cholecystectomy bed which may reflect a small gallbladder remnant. There is no right hydronephrosis LFTs improved monitor (12) Hypothyroidism: continue levothyroxine (13) COPD, moderate: Stable (14) SALAS (obstructive sleep apnea): CPAP QHS (15) History of pulmonary embolism: H/O PE H/O Depression continue home meds Nocturnal hypoxemia On 2 L of oxygen at bedtime Continue supplemental oxygen as needed Morbid Obesity BMI:53 (16) DVT prophylaxis: On Coumadin Code Status Full Code Disposition Needs rehab placement Family Contact: daughter Bing [phone] daughter Tatyana sister Enrike [phone] Total Time Total Time Spent Total Time Spent (In Minutes): 45 minutes Total Time Includes: Examination of the Patient, Discharge Planning, Medication Reconciliation, Communication With Other Providers and Other Discharge Plan Discharge Items Patient Disposition: Transfer Assisted Fac Reason For Visit: HYPERGLYCEMIA,ALMA ROSA Discharge Diagnosis: Severe Sepsis Staphylococcus Bacteremia Diabetic ulcer of right buttock associated with type 2 diabetes mellitus, with necrosis of muscle Acute on chronic respiratory failure Acute kidney injury Atrial fibrillation with rapid ventricular rate Rhabdomyolysis Transaminitis Morbid obesity Activity: Per Instructions section Exercise/Sports: Gradually increase as tolerated Non-emergency contact: Primary Care Provider, Surgeon, Specialist and Loss Control Technician Call non-emergency contact if: you have any medication questions, your symptoms worsen, your pain is not controlled, your pain is worsening, your pain is unusual for you, your pain is concerning for you, you have a fever, your wound has increased redness, your wound has increased drainage and your wound pain has increased Follow-up/Referrals: Scotty Jara DO [Primary Care Provider] - Diet: Carb Consistent or DM2 and Heart Healthy Diet Comment: Minced and Moist Ambulatory Orders: Complete Blood Count no Diff (Timed) Timeframe: 1 Week Location: Determined by Patient Ordered By: Dae Leone Comprehensive Metabolic Panel (Routine) Timeframe: 1 Week Location: Determined by Patient Ordered By: Dae Leone Erythrocyte Sedimentation Rate (Routine) Timeframe: 1 Week Location: Determined by Patient Ordered By: Dae Leone Prothrombin Time INR (Routine) Timeframe: 3 Days Location: Determined by Patient Ordered By: Dae Ribeiro Attending Provider Instructions: Follow up with your PCP in 1 week upon discharge from Rehab Facility Follow up with your Surgeon Dr. Ortiz in 2-3 weeks Follow up with your Loss Control Technician in 4-6 weeks Follow up with Wound Clinic in 1-2 weeks as advised Get PT/INR checked in 3 days and follow up with your Physician for further coumadin dosing Continue Wound care daily and as needed: wet-to-dry dressing changes with kerlex moistened with NS, ABD, and medipore tape-- as per your Surgeon Complete the antibiotic course IV ceftriaxone 2 g daily for 20 more days as recommended by your infectious disease physician Get blood test weekly CBC, CMP, ESR while on antibiotics and follow up with your physician Seek immediate medical attention if your symptoms reoccur or worsen Pending Studies at Discharge: No Stand-Alone Forms: My [facility] Skilled Items Patient informed of condition?: Yes DNR: No Discharge Level of Care: Skilled Communicable Disease: No Discharge Prognosis: Stable Lines: Peripheral IV Urinary Catheter: Yes Medications and DC Order Prescriptions: New sennosides-docusate sodium [Senokot-S] 8.6-50 mg Tablet 1 tab PO BID PRN (Reason: Constipation) Qty: 0 RF: 0 ceftriaxone 2 gram recon soln 2 gm IV DAILY Qty: 20 RF: 0 polyethylene glycol 3350 [Miralax] 17 gram Powder In Packet 17 g PO DAILY PRN (Reason: constipation) Qty: 0 RF: 0 Continued allopurinol 300 mg tablet 300 mg PO QPM RF: 0 aspirin [Adult Low Dose Aspirin] 81 mg tablet,delayed release (DR/EC) 81 mg PO QAM RF: 0 atorvastatin 10 mg tablet 10 mg PO QAM RF: 0 metolazone 2.5 mg tablet 2.5 mg PO WK RF: 0 duloxetine 60 mg capsule,delayed release(DR/EC) 60 mg PO QAM RF: 0 spironolactone 25 mg Tablet 12.5 mg PO QAM Qty: 0 RF: 0 furosemide 80 mg Tablet 80 mg PO BID Qty: 0 RF: 0 digoxin 125 mcg Tablet 0.125 mg PO QAM Qty: 0 RF: 0 omeprazole 20 mg Tablet,Delayed Release (Dr/Ec) 20 mg PO QAM Qty: 0 RF: 0 Humulin R U-500 (Conc) Insulin 500 unit/mL Solution 1 dose Continuous Subcutaneous Infusion DIRECTED Qty: 0 RF: 0 colchicine 0.6 mg Capsule 0.6 mg PO QAM Qty: 0 RF: 0 levothyroxine 200 mcg Tablet 200 mcg PO QAM Qty: 0 RF: 0 warfarin [Jantoven] 4 mg Tablet 4 mg PO SUTH Qty: 0 RF: 0 levothyroxine 50 mcg tablet 50 mcg PO QAM RF: 0 gabapentin 100 mg capsule 100 mg PO TID RF: 0 bupropion HCl 150 mg Tablet Extended Release 24 Hr 150 mg PO QAM RF: 0 sennosides [senna] 8.6 mg Tablet 8.6 mg PO BID RF: 0 warfarin 4 mg Tablet 8 mg PO [id number] RF: 0 nystatin 100,000 unit/gram Powder 1 applic TOPICAL BID PRN (Reason: Skin Irritation) RF: 0 albuterol sulfate 90 mcg/actuation Hfa Aerosol Inhaler 1 puff INHALATION Q6H PRN (Reason: Shortness Of Breath) RF: 0 cholecalciferol (vitamin D3) 2,000 unit Tablet 2,000 unit PO DAILY RF: 0 magnesium oxide 400 mg magnesium Tablet 400 mg PO DAILY RF: 0 Changed metoprolol tartrate 100 mg Tablet 150 mg PO BID Qty: 0 RF: 0 Discontinued metoprolol tartrate 100 mg Tablet 100 mg PO HS RF: 0 Discharge Orders: Discharge Order (Routine); Ordered 05/10/19 Ordered By: Dae Leone Admission Data Admit Date/Time: 04/26/19 12:37 Attending Provider: Dae Leone Admit Provider: Janes Mike Primary Care Provider: Scotty Jara Other Providers: Janes Mike ; Juan Carbone ; Steven Edouard ; Nicole Pineda ; Rashaad Perrin Other Interventions: Discharge Summary Assessment (RN) Last Done: 05/10/19 14:43 DC Date/Time DO NOT enter until pt leaves facility: 05/10/19 16:05
[2019-05-10 15:58] VITALS: BP 120/75; O2SAT 90
== END 2019-05-10 16:05 | DRG 853 ==
LOC: ED 10:02 → 2S 12:37 → SUATTDRO 12:37 → 2S 13:41 → 1E 16:10 → 2S 05-03 18:42

== ENCOUNTER 2020-02-13 16:12 | Observation (INO) ==
[2020-02-13 17:46] LABS: Basophils # (auto) 0.04 K/uL (0-0.2); Basophils % (auto) 0.6 %; Eosinophils # (auto) 0.13 K/uL (0-0.5); Eosinophils % (auto) 2.1 %; Hematocrit (blood only) 42.8 % (42-52); Hemoglobin 13.9 g/dL (14.0-18.0); Immature Granulocytes # (auto) 0.01 K/uL (0.00-0.02); Immature Granulocytes % (auto) 0.2 %; Lymphocytes % (auto) 26.9 %; Mean Corpuscular Hemoglobin 29.4 pg (25-34); Mean Corpuscular Hgb Conc 32.5 g/dL (32-36); Mean Corpuscular Volume 90.7 fL (80-100); Mean Platelet Volume 10.4 fL (7.4-10.4); Monocytes # (auto) 0.73 K/uL (0.11-0.59); Monocytes % (auto) 11.6 %; Neutrophils # (auto) 3.71 K/uL (1.4-6.5); Neutrophils % (auto) 58.6 %; Platelet Count 159 K/uL (130-400); RDW Coefficient of Variation 15.2 % (11.5-14.5); RDW Standard Deviation 50.5 fL (36.4-46.3); Red Blood Count 4.72 M/uL (4.7-6.1); White Blood Count 6.32 K/uL (4.8-10.8)
[2020-02-13 17:49] LABS: Base Excess VBG 3.8 mEq/L; Oxygen Saturation VBG 63.5 %; pH VBG 7.41 (7.36-7.41)
--- NOTE | 2020-02-13 17:51 | XRay Report ---
XR chest 1V portable HISTORY: 69 years-old Male Chest Pain acute atypical chest pain COMPARISON: Chest radiograph 05/30/2019 TECHNIQUE: Portable AP view of the chest FINDINGS: Cardiac silhouette is enlarged, unchanged. Left subclavian pacer. Mild linear scarring of the right l ateral midlung is unchanged. Chronic interstitial coarsening of the lung bases. No pneumothorax, larg e pleural effusion, overt pulmonary edema or airspace consolidation typical for pneumonia. Bones of t he chest appear grossly intact. IMPRESSION: Cardiomegaly without acute process. ACT 112: Negative or not required by law. The above report was generated using voice recognition software. It may contain grammatical, syntax o r spelling errors. Electronically signed by: Pk Menchaca M.D. 02/13/2020 5:49 PM
[2020-02-13 17:59] LABS: INR 1.9 (0.9-1.1); Partial Thromboplastin Ratio 1.4; Partial Thromboplastin Time 38.6 Seconds (21.0-31.0); Prothrombin Time 18.9 Seconds (9.0-12.0)
[2020-02-13 18:05] LABS: Alanine Aminotransferase 30 U/L (12-78); Albumin Level 3.5 gm/dl (3.4-5.0); Aspartate Aminotransferase 32 U/L (15-37); BUN Creatinine Ratio 20.3 (10-20); Bilirubin Direct 0.2 mg/dl (0-0.2); Blood Urea Nitrogen 44 mg/dl (7-18); Calcium 9.7 mg/dl (8.5-10.1); Carbon Dioxide 28 mmol/L (21-32); Chloride 104 mmol/L (98-107); Est GFR (African American) 35.6; Est GFR (Non-African American) 30.7; Glucose 89 mg/dl (70-99); Lipase 94 U/L (73-393); Magnesium 2.6 mg/dl (1.8-2.4); Sodium 139 mmol/L (136-145)
[2020-02-13 18:08] LABS: Albumin Globulin Ratio 0.8 (0.9-2); Alkaline Phosphatase 118 U/L (45-117); Bilirubin,Total 0.9 mg/dl (0.2-1); Globulin 4.3 gm/dl (2.5-4.0); NT Pro B Type Natriuretic Pept 1698 pg/ml (0-900); Phosphorus 2.8 mg/dl (2.5-4.9); Total Protein 7.8 gm/dl (6.4-8.2); Troponin I < 0.015 ng/ml (0-0.045)
[2020-02-13] MEDS ORDERED: ASPIRIN CHEW 324 MG PO STA (18:14)
[2020-02-13] MEDS ORDERED: DEXTROSE 50% 50 ML SYRINGE IV ONE (18:50)
[2020-02-13] MEDS ORDERED: DEXTROSE 50% 50 ML SYRINGE IV STA (18:51)
--- NOTE | 2020-02-13 19:00 | Emergency Department Note ---
Impression & Plan Exertional angina, Atrial fibrillation, Cardiac pacemaker in situ, CKD (chronic kidney disease) stage 3, GFR 30-59 ml/min ED Provider Note NAME: CECILE KENDALL AGE: 69 SEX: M ARRIVES VIA: Walk-In INFORMANT: Patient, ED PROVIDER(S): Jonathon Sands MD CHIEF COMPLAINT: Chest pain with exertion PLAN: Disposition: Admit MEDICAL DECISION MAKING: The patient is a pleasant 69-year-old gentleman with a past medical history of tachybradycardia syndrome status post PPM, A. fib on Coumadin, SALAS, diabetes, CKD, CHF, COPD who presents emergency department for evaluation of concern for unstable angina after the patient has been having recurring and consistent exertional chest pain over the past several weeks with severe episode last night with EMS arrival to his home but he refused transport to the hospital, subsequently seen by [facility] nursing who convinced him to be seen by his cardiology office today who also was concerned and referred him to the emergency department. I discussed the case with [facility] cardiology Dr. Harmon prior to the patient's arrival after he was referred and the patient refused ambulance but was in route by private vehicle. Recommendations were for admission for further cardiac evaluation as the patient's exertional symptoms are concerning. If patient is therapeutic on his Coumadin no need to emergently start the patient on heparin. On arrival the patient is chronically ill-appearing but no acute distress, afebrile with stable vital signs. He does report having pain in his chest as he walked to his room near immediate resolution of pain upon resting. I did explain to the patient the concerns of all his providers regarding his symptoms which raise suspicion for underlying cardiac etiology. Initially reporting that he would not stay he ultimately was agreeable after risks of leaving AGAINST MEDICAL ADVICE were emphasized. EKG demonstrates paced rhythm with underlying atrial fibrillation. Chest x-ray negative for acute process. WBC, HCT and platelets within normal limits. INR is slightly subtherapeutic at 1.9. VBG is unremarkable. Creatinine is 2.1 within the patient's prior range of values. Electrolytes and LFTs unremarkable. Troponin negative/undetectable. BNP 1600 similar to prior values. Case was discussed with Pranay Sutton, with Dr. Acevedo, [facility] hospitalist, who will evaluate the patient for admission. Triage Nursing notes reviewed and agree them. Prior medical records reviewed Vital Signs: reviewed and remarkable for no significant abnormalities Differential diagnosis: Cardiac ischemia, aortic dissection, pulmonary embolism, pneumothorax, pn eumonia, pericarditis, myocarditis, esophageal rupture, GERD, cholecystitis, pancreatitis, musculoskeletal, as well as other pathologies. ER treatment provided: See below. Diagnostics interpreted by me: ECG: Intermittent paced rhythm with underlying atrial fibrillation, frequent PVCs, 77 bpm, right bundle branch block, left anterior fascicular block, no overt acute ischemia. Cardiac Monitoring: An order for continuous cardiac monitoring was placed and demonstrated intermittent paced rhythm with underlying atrial fibrillation with PVCs, 77 bpm Laboratory studies: See below Imaging studies: XR chest 1V portable HISTORY: 69 years-old Male Chest Pain acute atypical chest pain COMPARISON: Chest radiograph 05/30/2019 TECHNIQUE: Portable AP view of the chest FINDINGS: Cardiac silhouette is enlarged, unchanged. Left subclavian pacer. Mild linear scarring of the right lateral midlung is unchanged. Chronic interstitial coarsening of the lung bases. No pneumothorax, large pleural effusion, overt pulmonary edema or airspace consolidation typical for pneumonia. Bones of the chest appear grossly intact. IMPRESSION: Cardiomegaly without acute process. Consultation(s): Case was discussed with [facility] RAO, with Dr. Acevedo, [facility] hospitalist, who will evaluate the patient for admission. HPI: The patient is a pleasant 69-year-old gentleman with a past medical history of tachybradycardia syndrome status post PPM, A. fib on Coumadin, SALAS, diabetes, CKD, CHF, COPD who presents emergency department for evaluation of concern for unstable angina after the patient has been having recurring and consistent exertional chest pain over the past several weeks with severe episode last night with EMS arrival to his home but he refused transport to the hospital, subsequently seen by [facility] nursing who convinced him to be seen by his cardiology office today who also was concerned and referred him to the emergency department. I discussed the case with [facility] cardiology Dr. Harmon prior to the patient's arrival after he was referred and the patient refused ambulance but was in route by private vehicle. Recommendations were for admission for further cardiac evaluation as the patient's exertional symptoms are concerning. If patient is therapeutic on his Coumadin no need to emergently start the patient on heparin. ROS: See above HPI for pertinent positives & negatives. A total of 10 systems reviewed and were otherwise negative. PAST MEDICAL HISTORY:See Below PAST SURGICAL HISTORY:See Below FAMILY HISTORY:See Below SOCIAL HISTORY:See Below HOME MEDICATIONS:See Below ALLERGIES:See Below VITALS:See Below PHYSICAL EXAMINATION: GENERAL: Awake, alert, uncomfortable, chronically ill-appearing, in no distress HENT: Normocephalic, atraumatic. Oropharynx unremarkable. EYES: Normal conjunctiva. Sclera non-icteric. NECK: Supple. No nuchal rigidity. FROM. No JVD. RESPIRATORY: Diminished breath sounds at the bases with scant intermittent wheeze. CARDIAC: Regular rate, normal rhythm. Extremities warm and well perfused. Pulses equal. ABDOMEN: Soft, non-distended. No tenderness to palpation. No rebound or guarding. No masses. RECTAL: Deferred. MUSCULOSKELETAL: Chest examination reveals no tenderness. The back is symmetrical on inspection without obvious abnormality. There is no CVA tend erness to palpation. No joint edema. LOWER EXTREMITIES: Calves are equal size bilaterally and non-tender. 1+ BLE edema. No discoloration. NEURO: Normal sensorium. No sensory or motor deficits noted. SKIN: No rash or jaundice noted. Jonathon Sands MD Past Med/Surg History Medical History Arthritis Atrial fibrillation (Chronic) paroxysmal Atrial flutter (Chronic) Bifascicular block (Chronic) CAD (coronary artery disease) Cardiomyopathy Chronic anticoagulation (Chronic) Chronic diastolic CHF (congestive heart failure) Chronic venous insufficiency CKD (chronic kidney disease) stage 3, GFR 30-59 ml/min (Chronic) Claustrophobia (Chronic) Closed fracture of thyroid cartilage (Resolved) COPD, moderate (Chronic) Depression (Chronic) Diabetes mellitus, type 2 (Chronic) insulin pump Fatty liver (Chronic) Gout (Chronic) Hyperlipidemia (Chronic) Hypertension (Chronic) Hypothyroidism (Chronic) Iatrogenic pulmonary embolism Interstitial lung disease (Chronic) Morbid obesity (Chronic) MRSA infection (Inactive) Nephrolithiasis Nocturnal hypoxemia (Chronic) SALAS (obstructive sleep apnea) Osteoarthritis (Chronic) Paroxysmal atrial fibrillation (Chronic) Prolonged QT interval Pulmonary embolism (Resolved) B/L- 5+ years ago Sarcoidosis (Chronic) possible- evaluated by pulmonary; felt no active sarcoidosis and would not merit steroid therapy given weight/diabetic state. 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) "prior EF of 25% while in aflutter, subsequently normal in NSR" Surgical History H/O cardiac radiofrequency ablation H/O prior ablation treatment (Chronic) History of arthroscopic knee surgery (Resolved) History of bronchoscopy (Resolved) History of cataract surgery (Resolved) local anesthesia only per pt History of cholecystectomy (Chronic) History of extraction of renal calculus (Resolved) History of lung surgery (Resolved) thoracoscopy, right VATS, wedge resection History of umbilical hernia repair (Resolved) Hx of carpal tunnel repair (Chronic) Pacemaker (Chronic) Implanted 02/2017 secondary to Sinus node dysfunction/tachy sherry syndrome/3rd degree AVB [employer] Pacer check 12/24/17 Status post incision and drainage (Acute) Family History Mother Cancer Social History Smoking Status: Never smoker Second Hand Exposure: No; Hx Alcohol Use: No Hx Substance Use: No Preferred Language: Belarusian Communication Ability: Effective Visual Impairment: No Limitations Hearing Ability: Normal Pharmacy Customer Care Specialist Required: No Beliefs That Will Affect Care: None marital status: Current Living Situation: Alone Current Living Situation Comment: [facility] current occupational status: retired How many Children do You have: 2 Feels Safe at Home: Yes Safety Concerns: Feels Safe At This Time Diet Comment: FLUID RESTRICTION during the past year weight has: other Allergies Allergies Allergy/AdvReac Type Severity Reaction Status Date / Time No Known Drug Allergies Allergy Verified 01/27/20 08:00 Home Meds Home Medications Medication Instructions Recorded Confirmed digoxin 0.125 mg PO QPM #0 07/13/16 02/13/20 spironolactone 25 mg PO QAM #0 07/13/16 02/13/20 colchicine 0.6 mg PO QAM #0 09/22/16 02/13/20 aspirin 81 mg tablet,delayed 81 mg PO QAM 05/11/18 02/13/20 release metolazone 2.5 mg tablet 2.5 mg PO WE tab 05/11/18 02/13/20 levothyroxine 50 mcg PO QAM 06/24/18 02/13/20 duloxetine 60 mg capsule,delayed 60 mg PO QAM 08/31/18 02/13/20 release magnesium oxide 400 mg PO QAM 04/26/19 02/13/20 sennosides [senna] 8.6 mg PO BID PRN 04/26/19 02/13/20 cholecalciferol (vitamin D3) 50 2,000 units PO QAM 05/13/19 02/13/20 mcg (2,000 unit) capsule allopurinol 300 mg tablet 300 mg PO QAM 05/25/19 02/13/20 levothyroxine 200 mcg tablet 200 mcg PO QAM #0 tab 05/25/19 02/13/20 omeprazole 20 mg capsule,delayed 20 mg PO QAM 05/25/19 02/13/20 release tramadol 50 mg PO Q6H PRN 05/30/19 02/13/20 potassium chloride [Klor-Con M20] 20 meq PO BIDM 07/12/19 02/13/20 furosemide 80 mg tablet 80 mg PO BID #0 11/23/19 02/13/20 acetaminophen 500 mg capsule 500 mg PO Q6H PRN 12/14/19 02/13/20 albuterol sulfate 90 mcg/actuation 2 puffs INH Q4H PRN gm 12/14/19 02/13/20 aerosol inhaler atorvastatin 20 mg tablet 10 mg PO HS 12/14/19 02/13/20 diclofenac sodium 1 % topical gel 2 gm TOP QID 12/14/19 02/13/20 gabapentin 300 mg capsule 300 mg PO TID 12/14/19 02/13/20 meclizine 12.5 mg tablet 12.5 mg PO TID PRN 12/14/19 02/13/20 triamcinolone acetonide 0.1 % 1 applic TOPICAL BID 12/14/19 02/13/20 topical cream bupropion HCl 150 mg PO QAM 02/13/20 02/13/20 insulin regular hum U-500 conc 02/13/20 menthol-zinc oxide [Calmoseptine] 1 applic TOPICAL QID 02/13/20 02/13/20 metoprolol succinate 150 mg PO BID 02/13/20 02/13/20 miconazole nitrate [Antifungal 1 applic TOPICAL BID 08/03/20 08/03/20 Cream (miconazole)] [id number] 1 cap PO BID 02/13/20 02/13/20 [[facility]] oxybutynin chloride 5 mg PO HS 02/13/20 02/13/20 warfarin 2 mg PO MURILLO 02/13/20 02/13/20 warfarin 4 mg PO [id number] 02/13/20 02/13/20 Results & Data (ED) Vital Signs Vital Signs - 24 hr 02/13/20 16:15 02/13/20 17:02 02/13/20 18:13 Temperature 36.7 C Temperature Source Oral Pulse Rate 93 H Pulse Rate [Apical] 72 Pulse Rhythm Regular Pulse Strength Normal Respiratory Rate 20 20 Respiratory Effort / Characteristics Non-Labored Spontaneous Respiratory Depth Normal Respiratory Pattern Regular Blood Pressure 141/84 H Blood Pressure [Left Arm] 156/107 H Blood Pressure Mean 103 Blood Pressure Mean [Left Arm] 123 Blood Pressure Position Sitting Pulse Oximetry 94 94 93 Oxygen Delivery Method Room Air Room Air Room Air Sepsis Recent Fever Within 48 Hours No Sepsis New/Unexplained Change in Mental Status N/A Sepsis Action Taken by Nursing No Action Required Laboratory Data Attestation: I reviewed the patient's lab results. Result diagrams: 02/13/20 17:33 02/13/20 17:33 Lab Results 02/13/20 02/13/20 02/13/20 Range/Units 17:33 17:33 17:33 WBC 6.32 (4.8-10.8) K/uL RBC 4.72 (4.7-6.1) M/uL Hgb 13.9 L (14.0-18.0) g/dL Hct 42.8 (42-52) % MCV 90.7 (80-100) fL MCH 29.4 (25-34) pg MCHC 32.5 (32-36) g/dL RDW Std Deviation 50.5 H (36.4-46.3) fL RDW Coeff of Baldo 15.2 H (11.5-14.5) % Plt Count 159 (130-400) K/uL MPV 10.4 (7.4-10.4) fL Immature Gran % (Auto) 0.2 % Neut % (Auto) 58.6 % Lymph % (Auto) 26.9 % [place] % (Auto) 11.6 % Eos % (Auto) 2.1 % Baso % (Auto) 0.6 % Neut # (Auto) 3.71 (1.4-6.5) K/uL Lymph # (Auto) 1.70 (1.2-3.4) K/uL [place] # (Auto) 0.73 H (0.11-0.59) K/uL Eos # (Auto) 0.13 (0-0.5) K/uL Baso # (Auto) 0.04 (0-0.2) K/uL Immature Gran # (Auto) 0.01 (0.00-0.02) K/uL PT 18.9 H (9.0-12.0) Seconds INR 1.9 H (0.9-1.1) APTT 38.6 H (21.0-31.0) Seconds PTT Ratio 1.4 VBG pH (7.36-7.41) VBG pCO2 (38-50) mmHg VBG pO2 mmHg VBG HCO3 mmol/L VBG O2 Saturation % VBG Base Excess mEq/L Barometric Pressure mm/Hg Sodium 139 (136-145) mmol/L Potassium 4.0 (3.5-5.1) mmol/L Chloride 104 (98-107) mmol/L Carbon Dioxide 28 (21-32) mmol/L Anion Gap 7.0 (3-11) BUN 44 H (7-18) mg/dl Creatinine 2.15 H (0.6-1.4) mg/dl Est Cr Clr Drug Dosing 48.0 ml/min Est GFR ( Amer) 35.6 Est GFR (Non-Af Amer) 30.7 BUN/Creatinine Ratio 20.3 H (10-20) Glucose 89 (70-99) mg/dl Calcium 9.7 (8.5-10.1) mg/dl Phosphorus 2.8 (2.5-4.9) mg/dl Magnesium 2.6 H (1.8-2.4) mg/dl Total Bilirubin 0.9 (0.2-1) mg/dl Direct Bilirubin 0.2 (0-0.2) mg/dl AST 32 (15-37) U/L ALT 30 (12-78) U/L Alkaline Phosphatase 118 H (45-117) U/L Troponin I < 0.015 (0-0.045) ng/ml NT-Pro-B Natriuret Pep 1698 H (0-900) pg/ml Total Protein 7.8 (6.4-8.2) gm/dl Albumin 3.5 (3.4-5.0) gm/dl Globulin 4.3 H (2.5-4.0) gm/dl Albumin/Globulin Ratio 0.8 L (0.9-2) Lipase 94 (73-393) U/L TSH (0.300-4.500) uIu/ml 02/13/20 02/13/20 Range/Units 17:33 17:33 WBC (4.8-10.8) K/uL RBC (4.7-6.1) M/uL Hgb (14.0-18.0) g/dL Hct (42-52) % MCV (80-100) fL MCH (25-34) pg MCHC (32-36) g/dL RDW Std Deviation (36.4-46.3) fL RDW Coeff of Baldo (11.5-14.5) % Plt Count (130-400) K/uL MPV (7.4-10.4) fL Immature Gran % (Auto) % Neut % (Auto) % Lymph % (Auto) % [place] % (Auto) % Eos % (Auto) % Baso % (Auto) % Neut # (Auto) (1.4-6.5) K/uL Lymph # (Auto) (1.2-3.4) K/uL [place] # (Auto) (0.11-0.59) K/uL Eos # (Auto) (0-0.5) K/uL Baso # (Auto) (0-0.2) K/uL Immature Gran # (Auto) (0.00-0.02) K/uL PT (9.0-12.0) Seconds INR (0.9-1.1) APTT (21.0-31.0) Seconds PTT Ratio VBG pH 7.41 (7.36-7.41) VBG pCO2 47 (38-50) mmHg VBG pO2 34 mmHg VBG HCO3 29 mmol/L VBG O2 Saturation 63.5 % VBG Base Excess 3.8 mEq/L Barometric Pressure 732.3 mm/Hg Sodium (136-145) mmol/L Potassium (3.5-5.1) mmol/L Chloride (98-107) mmol/L Carbon Dioxide (21-32) mmol/L Anion Gap (3-11) BUN (7-18) mg/dl Creatinine (0.6-1.4) mg/dl Est Cr Clr Drug Dosing ml/min Est GFR ( Amer) Est GFR (Non-Af Amer) BUN/Creatinine Ratio (10-20) Glucose (70-99) mg/dl Calcium (8.5-10.1) mg/dl Phosphorus (2.5-4.9) mg/dl Magnesium (1.8-2.4) mg/dl Total Bilirubin (0.2-1) mg/dl Direct Bilirubin (0-0.2) mg/dl AST (15-37) U/L ALT (12-78) U/L Alkaline Phosphatase (45-117) U/L Troponin I (0-0.045) ng/ml NT-Pro-B Natriuret Pep (0-900) pg/ml Total Protein (6.4-8.2) gm/dl Albumin (3.4-5.0) gm/dl Globulin (2.5-4.0) gm/dl Albumin/Globulin Ratio (0.9-2) Lipase (73-393) U/L TSH 0.969 (0.300-4.500) uIu/ml Administered Medications Atorvastatin Calcium (Lipitor) 10 mg PO HS OFE Stop: 03/14/20 20:59 Last Admin: 02/13/20 20:56 Dose: 10 mg Documented by: [id number] Dextrose (Dextrose 50%) 25 - 50 ml IV UD PRN; Protocol PRN Reason: Hypoglycemia Protocol Stop: 03/14/20 20:29 Last Admin: 02/13/20 20:48 Dose: 25 ml Documented by: [id number] Digoxin (Lanoxin) 0.125 mg PO QPM OFE Stop: 03/14/20 20:59 Last Admin: 02/13/20 20:57 Dose: 0.125 mg Documented by: [id number] Furosemide (Lasix) 80 mg PO [id number] OFE Stop: 03/14/20 20:29 Last Admin: 02/13/20 20:54 Dose: 80 mg Documented by: [id number] Gabapentin (Neurontin) 300 mg PO TID OFE Stop: 03/14/20 20:59 Last Admin: 02/13/20 20:56 Dose: 300 mg Documented by: [id number] Insulin Aspart (Novolog Flexpen) 0 units SC ACHS [facility] Stop: 03/14/20 20:59 Last Admin: 02/13/20 21:19 Dose: 7 units Documented by: [id number] Cosigned by: [id number] Insulin Aspart (Novolog Flexpen) 0 units SC 0000,[id number] [facility] Stop: 02/14/20 04:01 Last Admin: 02/14/20 00:35 Dose: Not Given Documented by: [id number] Cosigned by: [id number] Metoprolol Succinate (Toprol Xl) 150 mg PO BID [facility] Stop: 03/14/20 20:59 Last Admin: 02/13/20 20:56 Dose: 150 mg Documented by: [id number] Oxybutynin Chloride (Ditropan) 5 mg PO HS [facility] Stop: 03/14/20 20:59 Last Admin: 02/13/20 20:56 Dose: 5 mg Documented by: [id number] Warfarin Sodium (Coumadin) 4 mg PO [id number] [facility] Stop: 03/14/20 20:59 Last Admin: 02/13/20 20:54 Dose: 4 mg Documented by: [id number] Discontinued Medications Aspirin (Aspirin) 324 mg PO NOW STA Stop: 02/13/20 18:15 Last Admin: 02/13/20 18:40 Dose: 324 mg Documented by: [id number] Dextrose (Dextrose 50%) Confirm Administered Dose 50 ml IV .STK-MED ONE Stop: 02/13/20 18:51 Last Admin: 02/13/20 18:55 Dose: 25 ml Documented by: [id number] Insulin Human NPH (Novolin N Nph) 15 units SC ONE ONE Stop: 02/13/20 21:01 Last Admin: 02/13/20 20:50 Dose: Not Given Documented by: [id number] Blood Pressure Blood Pressure Findings: Elevated blood pressure Blood Pressure Disposition: further management by hospitalist Discharge Plan Visit Data *Final* Discharge Date/Time: 02/13/20 19:12 Chief Complaint: Cardiac Assessment Stated Complaint: CHEST PAINS ED Provider: Jonathon Sands Discharge Problem: Exertional angina, Atrial fibrillation, Cardiac pacemaker in situ, CKD (chronic kidney disease) stage 3, GFR 30-59 ml/min Patient Disposition: Admitted As Inpatient Discharge Instructions Interventions: ED Discharge Assessment Last Done: 02/13/20 19:12 Discharge Problem: Atrial fibrillation Qualifiers: Atrial fibrillation type: unspecified Qualified Code(s): I48.91 - Unspecified atrial fibrillation
--- NOTE | 2020-02-13 19:47 | History & Physical Report ---
Date of Service February 13, 2020 Assessment & Plan (1) Chest pain: -Admit to telemetry -Patient presenting by referral to outpatient cardiology for evaluation of chest pain concerning for unstable angina -Risk factors: HTN, dyslipidemia, obesity, DM type II -Initial troponin negative, EKG without acute ST changes -Continue serial cardiac enzymes, check resting echo for wall motion abnormality -Continue aspirin, statin, beta-flo -Cardiology consult (2) Chronic diastolic CHF (congestive heart failure): -Examines to be euvolemic -Review of outpatient chart demonstrates weight is stable -Continue furosemide, spironolactone, metolazone (3) Diabetes mellitus, type 2: -Hgb A1c 7.7 11/2019 -On insulin pump -Developed symptomatic hypoglycemia while in the ED (glucose 55), improved after half amp D50 -Insulin pump discontinued by caregiver -Pharmacy consulted for glycemic management (4) Decubitus ulcer: -Has been following with wound center for decubitus ulcer on buttocks -Was placed on Bactrim on 01/29 for 14-day course for MRSA infection; patient reports he has completed the course -Wound consult while inpatient (5) Pacemaker: (6) Tachy-sherry syndrome: -Pacemaker interrogation (7) History of pulmonary embolism: -Anticoagulated on Coumadin, INR 1.9 (8) Hypertension: -BP controlled, continue metoprolol (9) Paroxysmal atrial fibrillation: -Rate controlled on digoxin and metoprolol -Anticoagulated on Coumadin, INR 1.9 (10) CKD (chronic kidney disease) stage 3, GFR 30-59 ml/min: -Baseline creatinine high ones to low twos -Noted to be 2.1 today -Monitor renal functions, avoid nephrotoxic agents when able (11) Hypothyroidism: -Continue levothyroxine (12) COPD, moderate: -No signs of acute extubation (13) SALAS (obstructive sleep apnea): -CPAP as per home settings (14) DVT prophylaxis: -On Coumadin, INR 1.9 History of Present Illness Chief Complaint: Chest pain Primary Care Provider: Scotty Jara DO 69-year-old male with PMH DM type II on insulin pump, COPD, SALAS, history of pulmonary embolism on Coumadin, tachybradycardia syndrome status post pacemaker, CKD stage III, chronic diastolic CHF, HTN, paroxysmal atrial fibrillation on Coumadin, and other problems listed below who presents the ED by referral of outpatient cardiology for evaluation of chest pain. Patient reports he has been having episodes of chest pain over the past 4 days. Describes chest pain as exertional, pressure/stabbing with some radiation into the left neck. Rates the pain #3/10 at its worst. He has had associated shortness of breath and diaphoresis. Reports pain will resolve with rest. He has not taken any at home sublingual nitroglycerin. He denies lightheadedness, dizziness, syncopal event. No other recent illnesses, fevers, chills. He is following with the wound care center for decubitus ulcer on his buttocks and was placed on Bactrim on 01/29 for a 14-day course. Denies abdominal pain, nausea, vomiting, diarrhea. No urinary symptoms.Patient was seen in the cardiology clinic today and sent to the ED for further evaluation. In the ED, initial troponin is negative. EKG demonstrates atrial fibrillation with some paced beats and PVCs. Patient developed symptomatic hypoglycemia, glucose 55, improved after half amp D50. Patient also received a full dose aspirin. Allergies Allergy/AdvReac Type Severity Reaction Status Date / Time No Known Drug Allergies Allergy Verified 01/27/20 08:00 Home Medications Home Medications Medication Instructions Recorded Confirmed Type digoxin 0.125 mg PO QPM #0 07/13/16 02/13/20 History spironolactone 25 mg PO QAM #0 07/13/16 02/13/20 History colchicine 0.6 mg PO QAM #0 09/22/16 02/13/20 History aspirin 81 mg tablet,delayed 81 mg PO QAM 05/11/18 02/13/20 History release metolazone 2.5 mg tablet 2.5 mg PO WE tab 05/11/18 02/13/20 History levothyroxine 50 mcg PO QAM 06/24/18 02/13/20 History duloxetine 60 mg capsule,delayed 60 mg PO QAM 08/31/18 02/13/20 History release magnesium oxide 400 mg PO QAM 04/26/19 02/13/20 History sennosides [senna] 8.6 mg PO BID PRN 04/26/19 02/13/20 History cholecalciferol (vitamin D3) 50 2,000 units PO QAM 05/13/19 02/13/20 History mcg (2,000 unit) capsule allopurinol 300 mg tablet 300 mg PO QAM 05/25/19 02/13/20 History levothyroxine 200 mcg tablet 200 mcg PO QAM #0 tab 05/25/19 02/13/20 History omeprazole 20 mg capsule,delayed 20 mg PO QAM 05/25/19 02/13/20 History release tramadol 50 mg PO Q6H PRN 05/30/19 02/13/20 History potassium chloride [Klor-Con M20] 20 meq PO BIDM 07/12/19 02/13/20 History furosemide 80 mg tablet 80 mg PO BID #0 11/23/19 02/13/20 History acetaminophen 500 mg capsule 500 mg PO Q6H PRN 12/14/19 02/13/20 History albuterol sulfate 90 mcg/actuation 2 puffs INH Q4H PRN gm 12/14/19 02/13/20 History aerosol inhaler atorvastatin 20 mg tablet 10 mg PO HS 12/14/19 02/13/20 History diclofenac sodium 1 % topical gel 2 gm TOP QID 12/14/19 02/13/20 History gabapentin 300 mg capsule 300 mg PO TID 12/14/19 02/13/20 History meclizine 12.5 mg tablet 12.5 mg PO TID PRN 12/14/19 02/13/20 History triamcinolone acetonide 0.1 % 1 applic TOPICAL BID 12/14/19 02/13/20 History topical cream bupropion HCl 150 mg PO QAM 02/13/20 02/13/20 History insulin regular hum U-500 conc 02/13/20 History menthol-zinc oxide [Calmoseptine] 1 applic TOPICAL QID 02/13/20 02/13/20 History metoprolol succinate 150 mg PO BID 02/13/20 02/13/20 History miconazole nitrate [Antifungal 1 applic TOPICAL BID 02/13/20 02/13/20 History Cream (miconazole)] [id number] 1 cap PO BID 02/13/20 02/13/20 History [[facility]] oxybutynin chloride 5 mg PO HS 02/13/20 02/13/20 History warfarin 2 mg PO MURILLO 02/13/20 02/13/20 History warfarin 4 mg PO [id number] 02/13/20 02/13/20 History Past Med/Surg History Medical History Arthritis Atrial fibrillation (Chronic) paroxysmal Atrial flutter (Chronic) Bifascicular block (Chronic) CAD (coronary artery disease) Cardiomyopathy Chronic anticoagulation (Chronic) Chronic diastolic CHF (congestive heart failure) Chronic venous insufficiency CKD (chronic kidney disease) stage 3, GFR 30-59 ml/min (Chronic) Claustrophobia (Chronic) Closed fracture of thyroid cartilage (Resolved) COPD, moderate (Chronic) Depression (Chronic) Diabetes mellitus, type 2 (Chronic) insulin pump Fatty liver (Chronic) Gout (Chronic) Hyperlipidemia (Chronic) Hypertension (Chronic) Hypothyroidism (Chronic) Iatrogenic pulmonary embolism Interstitial lung disease (Chronic) Morbid obesity (Chronic) MRSA infection (Inactive) Nephrolithiasis Nocturnal hypoxemia (Chronic) SALAS (obstructive sleep apnea) Osteoarthritis (Chronic) Paroxysmal atrial fibrillation (Chronic) Prolonged QT interval Pulmonary embolism (Resolved) B/L- 5+ years ago Sarcoidosis (Chronic) possible- evaluated by pulmonary; felt no active sarcoidosis and would not merit steroid therapy given weight/diabetic state. 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) "prior EF of 25% while in aflutter, subsequently normal in NSR" Surgical History H/O cardiac radiofrequency ablation H/O prior ablation treatment (Chronic) History of arthroscopic knee surgery (Resolved) History of bronchoscopy (Resolved) History of cataract surgery (Resolved) local anesthesia only per pt History of cholecystectomy (Chronic) History of extraction of renal calculus (Resolved) History of lung surgery (Resolved) thoracoscopy, right VATS, wedge resection History of umbilical hernia repair (Resolved) Hx of carpal tunnel repair (Chronic) Pacemaker (Chronic) Implanted 02/2017 secondary to Sinus node dysfunction/tachy sherry syndrome/3rd degree AVB [employer] Pacer check 12/24/17 Status post incision and drainage (Acute) Family History Mother Cancer Social History Smoking Status: Never smoker Second Hand Exposure: No; Hx Alcohol Use: No Hx Substance Use: No Preferred Language: [place] Communication Ability: on Vent Visual Impairment: No Limitations Hearing Ability: Normal Lead Painter Required: No Beliefs That Will Affect Care: None marital status: Current Living Situation: Alone and Long Term Current Living Situation Comment: [place] current occupational status: retired How many Children do You have: 2 Feels Safe at Home: Yes Diet Comment: FLUID RESTRICTION during the past year weight has: other Review of Systems Review of Systems: ROS per HPI, all other systems reviewed and negative Physical Exam Constitutional: WD/WN, vitals as above + obese Eyes: PERRL, conjunctivae normal, anicteric sclerae ENMT: external ear and nose normal, oropharynx normal Respiratory: normal respiratory effort; no respiratory distress Auscultation: + diminished lung sounds Cardiovascular: Rate/Rhythm: + irregularly irregular Vessels: normal peripheral pulses Extremities: no edema Gastrointestinal (Abdomen): normal bowel sounds, soft, nontender, no hepatosplenomegaly Inspection/Auscultation: + abdomen distended Musculoskeletal: no cyanosis or clubbing, extremities motor strength 5/5 Skin: no rashes, warm and dry Chronic venous changes BLE Neurologic: PERRL, EOMI, accommodation nl, no face palsy, no dysarthria Psychiatric: A+Ox3, euthymic affect Results & Data Results & Data ([facility]) Vital Signs (Past 12 Hours) Vital Signs Temp Pulse Pulse Resp BP BP Pulse Ox 02/13/20 18:13 72 20 156/107 H 93 02/13/20 17:02 94 02/13/20 16:15 36.7 C 93 H 20 141/84 H 94 Laboratory Results Short CBC 02/13/20 Range/Units 17:33 WBC 6.32 (4.8-10.8) K/uL Hgb 13.9 L (14.0-18.0) g/dL Hct 42.8 (42-52) % Plt Count 159 (130-400) K/uL BMP 02/13/20 17:33 Sodium 139 Potassium 4.0 Chloride 104 Carbon Dioxide 28 BUN 44 H Creatinine 2.15 H Glucose 89 Calcium 9.7 Cardiac Enzymes 02/13/20 Range/Units 17:33 Troponin I < 0.015 (0-0.045) ng/ml Liver Function 02/13/20 Range/Units 17:33 Total Bilirubin 0.9 (0.2-1) mg/dl Direct Bilirubin 0.2 (0-0.2) mg/dl AST 32 (15-37) U/L ALT 30 (12-78) U/L Alkaline Phosphatase 118 H (45-117) U/L Albumin 3.5 (3.4-5.0) gm/dl Diagnostic Findings CXR IMPRESSION: Cardiomegaly without acute process. Code Status & VTE Plan VTE Prophylaxis Plan VTE Prophylaxis will be ordered: No Supervising Physician Co-Signing Physician Notes Patient was seen and examined by me, care coordinated with RAO Sutton. Please see her note above for further details. Pt is a 69 y/o male with DM type II on insulin pump, interstitial lung dis.,COPD, SALAS on CPAP, history of pulmonary embolism on Coumadin, tachybradycardia syndrome status post pacemaker, CKD stage III, chronic diastolic CHF, HTN, paroxysmal atrial fibrillation on Coumadin, hypothyroidism, morbid obesity who presents the ED by referral of outpatient cardiology for evaluation of chest pain. Patient has been having chest pain over the past 4 days. Describes chest pain as exertional, pressure like and stabbing like with some radiation into the left neck. He has had associated shortness of breath and diaphoresis. Pain resolves with rest. He has not taken any at home sublingual nitroglycerin. He denies lightheadedness, dizziness, syncopal event. No fevers, chills. Denies abdominal pain, nausea, vomiting, diarrhea. In the ED, initial troponin is negative. EKG demonstrates atrial fibrillation with some paced beats and PVCs. Patient developed symptomatic hypoglycemia, glucose 55, improved after half amp D50. Patient also received a full dose aspirin. Patient is sitting up in bed, feeling clammy, (likely due to hypoglycemia). He is alert and oriented and answers questions appropriately. His caregiver is present at the bedside. Lung sounds are somewhat diminished, no wheezing, rhonchi or crackles noted. Heart sounds irregular. Left upper chest, pacemaker, area is nontender, there is no erythema or edema noted. Abdomen is soft, obese, nontender, positive bowel sounds. There is trace lower extremity edema, with venous stasis changes bilaterally. He moves all 4 extremities spontaneously and without difficulty. Skin is otherwise warm and well-perfused. We will admit to telemetry, will trend troponin, consult cardiology for evaluation, echocardiogram ordered. Aries Acevedo MD (1) Diabetes mellitus, type 2 Chronic kidney disease stage: stage 3 (moderate) Diabetes mellitus complication detail: with chronic kidney disease Diabetes mellitus complication status: with kidney complications Diabetes mellitus chcf insulin use: with passport support manager use Qualified Code(s): E11.22 - Type 2 diabetes mellitus with diabetic chronic kidney disease; N18.3 - Chronic kidney disease, stage 3 (moderate); Z79.4 - product engineer (current) use of insulin (2) Hypothyroidism Hypothyroidism type: unspecified Qualified Code(s): E03.9 - Hypothyroidism, unspecified (3) Hypertension Hypertension type: unspecified Qualified Code(s): I10 - Essential (primary) hypertension
[2020-02-13] MEDS ORDERED: ACETAMINOPHEN 325 MG TAB PO PRN (20:03)
[2020-02-13] MEDS ORDERED: NITROGLYCERIN SL 0.4 MG/TAB TAB SL PRN (20:03)
[2020-02-13] MEDS ORDERED: PHARMACY GLYCEMIC MGMT CONSULT PRN (20:09)
[2020-02-13] MEDS ORDERED: DEXTROSE 50% 50 ML SYRINGE IV PRN (20:30)
[2020-02-13] MEDS ORDERED: GLUCOSE 10 TABS/TUBE PO PRN (20:30)
[2020-02-13] MEDS ORDERED: GLUCAGON FOR INJ 1 MG VIAL IM PRN (20:30)
[2020-02-13] MEDS ORDERED: GLUCOSE 40% GEL 15 GM TUBE PO PRN (20:30)
[2020-02-13] MEDS ORDERED: CARBOHYDRATES FOR HYPOGLYCEMIA PO PRN (20:30)
[2020-02-13] MEDS: INSULIN ASPART 100 UNITS/ML 3 ML PEN SC SCH ×2 (20:46→21:19)
[2020-02-13] MEDS: WARFARIN SOD 4 MG TAB PO SCH (20:54)
[2020-02-13] MEDS: FUROSEMIDE 80 MG TAB PO SCH (20:54)
[2020-02-13] MEDS: ATORVASTATIN 10 MG TAB PO SCH (20:56)
[2020-02-13] MEDS: OXYBUTYNIN CHLORIDE 5 MG TAB PO SCH (20:56)
[2020-02-13] MEDS: GABAPENTIN 300 MG CAP PO SCH (20:56)
[2020-02-13] MEDS: METOPROLOL SUCC 50MG EXT REL TAB PO SCH (20:56)
[2020-02-13] MEDS: DIGOXIN 0.125 MG TAB PO SCH (20:57)
[2020-02-13] MEDS ORDERED: [UNRECOGNIZED DRUG - OTHER] PO SCH (21:00)
[2020-02-13] MEDS ORDERED: INSULIN HUMAN NPH SC ONE ×3 (21:00)
--- NOTE | 2020-02-13 21:42 | Pharmacy Report ---
Glycemic Control Consultation - Date of Service February 13, 2020 - Scope Scope: Glycemic Pharmacist consulted for glycemic control and to write orders per [facility] inpatient glycemic control protocol. - Objective Weight: 148.7 kg Accuchecks BSG (last 24hrs): 02/13/20 02/13/20 02/13/20 17:33 18:49 19:10 Glucose 89 POC Glucose 55 L* 78 02/13/20 02/13/20 20:25 21:11 Glucose POC Glucose 57 L* 72 Laboratory Data (last 24hrs): 02/13/20 17:33 Potassium 4.0 Carbon Dioxide 28 Anion Gap 7.0 Creatinine 2.15 H Est Cr Clr Drug Dosing 48.0 - Recent Pertinent Medications Outpatient Anti-diabetic Regimen: * U-500 insulin pump (settings provided by consulting provider/patient chart) * Basal: U-500 rate (U-100 equivalent*) * 9608-5863: 0.6 unit/hr (3 unit/hr*) * 4668-6304: 1.7 unit/hr (8.5 unit/hr*) * [id number]: 2 unit/hr (10 unit/hr*) * 4778-3714: 1.9 unit/hr (9.5 unit/hr*) * 8414-2670: 1 unit/hr (5 unit/hr*) * 5007-4199: 0.6 unit/hr (3 unit/hr*) * Bolus: 20 units (100 units*) w/ breakfast, 18 units (90 units*) w/ lunch, and 11 units (55 units*) w/ dinner * Sliding scale: CF of 15 for BSG over 150 mg/dL * A1c ordered for tomorrow - Assessment & Plan Assessment & Plan: ASSESSMENT: * BR is a 69 year old male well known to the pharmacy glycemic service * Admitted for evaluation of chest pain - no acute ST changes on EKG, negative troponin * Cardiology consulted * Patient ordered diet for dinner tonight, but will be NPO after midnight * U-500 insulin pump used as an outpatient - disconnected by caregiver prior to admission * Episode of symptomatic hypoglycemia (BSG of 55 mg/dL) in ED - treated with half amp of D50W * BSG prior to HS meal was 57 mg/dL - will hold off on NPH for now and manage with Novolog q4h overnight PLAN FOR INPATIENT GLYCEMIC CONTROL: * Holding insulin pump at this time * Basal insulin * Have used NPH in the past with success * Hold for now - Will need to reassess in AM * Bolus insulin * NovoLog per scale ACHS or Q6hrs while NPO * Goal Range: Low 110 mg/dL - High 140 mg/dL * Correction Factor: 10 mg/dL/unit * Nutritional / Prandial insulin per carb ratio of 1 unit per 3 grams CHO consumed * Overnight checks at 00,04 * Please note that the plan above was derived based on current level of insulin resistance and hospital stress. These recommendations are appropriate for inpatient admission only. Plan of care upon discharge will need to be reassessed to avoid potential outpatient hypo/hyperglycemia. Thank you.
[2020-02-14] MEDS: INSULIN ASPART 100 UNITS/ML 3 ML PEN SC SCH ×7 (00:35→23:51)
[2020-02-14 05:31] LABS: Hematocrit (blood only) 41.2 % (42-52); Hemoglobin 13.5 g/dL (14.0-18.0); Mean Corpuscular Hemoglobin 29.9 pg (25-34); Mean Corpuscular Hgb Conc 32.8 g/dL (32-36); Mean Corpuscular Volume 91.2 fL (80-100); Mean Platelet Volume 10.3 fL (7.4-10.4); Platelet Count 135 K/uL (130-400); RDW Coefficient of Variation 15.1 % (11.5-14.5); Red Blood Count 4.52 M/uL (4.7-6.1); White Blood Count 5.73 K/uL (4.8-10.8)
[2020-02-14 05:39] LABS: INR 1.9 (0.9-1.1); Prothrombin Time 18.9 Seconds (9.0-12.0)
[2020-02-14 05:53] LABS: BUN Creatinine Ratio 24.1 (10-20); Blood Urea Nitrogen 43 mg/dl (7-18); Calcium 9.1 mg/dl (8.5-10.1); Carbon Dioxide 31 mmol/L (21-32); Chloride 106 mmol/L (98-107); Creatinine Clr Calc Pharmacy 57.7 ml/min; Est GFR (African American) 44.5; Est GFR (Non-African American) 38.4; Glucose 94 mg/dl (70-99); Potassium 3.5 mmol/L (3.5-5.1); Sodium 143 mmol/L (136-145)
[2020-02-14 05:57] LABS: Troponin I < 0.015 ng/ml (0-0.045)
[2020-02-14] MEDS: LEVOTHYROXINE SODIUM 50 MCG TABLET PO SCH (06:04)
[2020-02-14] MEDS: LEVOTHYROXINE SODIUM 200 MCG TABLET PO SCH (06:04)
[2020-02-14 06:25] LABS: Estimated Average Glucose 160 mg/dl; Hemoglobin A1C 7.2 % (4.5-5.6)
[2020-02-14] MEDS: TRAMADOL HCL 50 MG TABLET PO PRN (08:48)
[2020-02-14] MEDS: POTASSIUM CHLORIDE 20 MEQ TABCR PO SCH ×2 (08:49→16:55)
[2020-02-14] MEDS: CHOLECALCIFEROL 1,000 UNITS 25 MCG TAB PO SCH (08:49)
[2020-02-14] MEDS: MAGNESIUM OXIDE 400 MG TAB PO SCH (08:49)
[2020-02-14] MEDS: PANTOprazole 40 MG TAB PO SCH (08:49)
[2020-02-14] MEDS: COLCHICINE 0.6 MG TAB PO SCH (08:49)
[2020-02-14] MEDS: SPIRONOLACTONE 25 MG TAB PO SCH (08:50)
[2020-02-14] MEDS: ASPIRIN 81 MG ECTAB PO SCH (08:50)
[2020-02-14] MEDS: GABAPENTIN 300 MG CAP PO SCH ×3 (08:50→21:16)
[2020-02-14] MEDS: BuPROPion XL 150 MG TABCR PO SCH (08:50)
[2020-02-14] MEDS: DULOXETINE HCL 60 MG CAP PO SCH (08:50)
[2020-02-14] MEDS: allopurinoL 300 MG TAB PO SCH (08:51)
[2020-02-14] MEDS: METOPROLOL SUCC 50MG EXT REL TAB PO SCH ×2 (08:51→21:17)
[2020-02-14] MEDS ORDERED: INSULIN HUMAN NPH SC ONE (09:00)
[2020-02-14] MEDS ORDERED: POTASSIUM CHLORIDE 20 MEQ TABCR PO ONE (09:35)
[2020-02-14] MEDS: FUROSEMIDE 80 MG TAB PO SCH ×2 (09:47→16:56)
--- NOTE | 2020-02-14 10:22 | Cardiology Consultation ---
Date of Consultation February 14, 2020 Assessment & Plan (1) Chronic diastolic CHF (congestive heart failure): Normal troponin levels. Continue outpatient medications including current oral diuretics. Increase activity as tolerated. He walks with a walker at home. (2) Paroxysmal atrial fibrillation: INR =1.9 Continue current medications. (3) Stage II pressure ulcer of buttock: Continue local wound care. Will review echocardiogram. Given body habitus, diagnostic utility of stress testing is limited. If able to ambulate without CP will likely discharge tomorrow after ongoing observation. History of Present Illness Attending Physician: Enrike Lanier MD History of Present Illness Mr Andujar is a 69 year old male seen in cardiology consultation per the request of RAO Sutton of the [facility] service for the evaluation of chest pain. He is well known to our cardiology service. I had followed him during his hospital stay in April, when he was hospitalized for severe sepsis. Patient presented to the ED yesterday with several episodes of brief chest discomfort over the last few days with activity. No discomfort since arrival. Feels great at the time of my assessment. Daughter with him at bedside. EKG x 2 this stay reveal rate controlled AF with bifascicular block, demand RV pacing, no significant repolarization changes. Troponin negative x 3. Creatinine trending down to baseline this am. Noted increased BNP screen. Past Cardiac History: Paroxysmal atrial fibrillation (AF) and atrial flutter (AFL) First diagnosed in 2011 Failed to tolerate dronedarone Amiodarone prescribed in 2012, discontinued in by Pulmonary Medicine secondary to concerns for pulmonary toxicity. Recurrent AFL -2013, converting to NSR with the addition of dofetilide. Recurrent AF, . Status post May 10, [address] Flynn at [facility]. 1.Successful radiofrequency ablation of the cavotricuspid isthmus with creation of a bidirectional isthmus conduction block under conscious sedation. 2.He did not undergo a PVI ablation because of mild hypoxemia, volume overload on presentation. 3.Normal AV node function noted post ablation. 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 2.Chronic coumadin anticoagulation. 3.Diastolic dysfunction. 4.Hypertension 5.Dyslipidemia. 6.Diabetes 7.Obstructive sleep apnea, PAP therapy 8.History of bilateral pulmonary embolus Allergies Allergy/AdvReac Type Severity Reaction Status Date / Time No Known Drug Allergies Allergy Verified 01/27/20 08:00 Home Medications Home Medications Medication Instructions Recorded Confirmed Type digoxin 0.125 mg PO QPM #0 07/13/16 02/13/20 History spironolactone 25 mg PO QAM #0 07/13/16 02/13/20 History colchicine 0.6 mg PO QAM #0 09/22/16 02/13/20 History aspirin 81 mg tablet,delayed 81 mg PO QAM 05/11/18 02/13/20 History release metolazone 2.5 mg tablet 2.5 mg PO WE tab 05/11/18 02/13/20 History levothyroxine 50 mcg PO QAM 06/24/18 02/13/20 History duloxetine 60 mg capsule,delayed 60 mg PO QAM 08/31/18 02/13/20 History release magnesium oxide 400 mg PO QAM 04/26/19 02/13/20 History sennosides [senna] 8.6 mg PO BID PRN 04/26/19 02/13/20 History cholecalciferol (vitamin D3) 50 2,000 units PO QAM 05/13/19 02/13/20 History mcg (2,000 unit) capsule allopurinol 300 mg tablet 300 mg PO QAM 05/25/19 02/13/20 History levothyroxine 200 mcg tablet 200 mcg PO QAM #0 tab 05/25/19 02/13/20 History omeprazole 20 mg capsule,delayed 20 mg PO QAM 05/25/19 02/13/20 History release tramadol 50 mg PO Q6H PRN 05/30/19 02/13/20 History potassium chloride [Klor-Con M20] 20 meq PO BIDM 07/12/19 02/13/20 History furosemide 80 mg tablet 80 mg PO BID #0 11/23/19 02/13/20 History acetaminophen 500 mg capsule 500 mg PO Q6H PRN 12/14/19 02/13/20 History albuterol sulfate 90 mcg/actuation 2 puffs INH Q4H PRN gm 12/14/19 02/13/20 History aerosol inhaler atorvastatin 20 mg tablet 10 mg PO HS 12/14/19 02/13/20 History diclofenac sodium 1 % topical gel 2 gm TOP QID 12/14/19 02/13/20 History gabapentin 300 mg capsule 300 mg PO TID 12/14/19 02/13/20 History meclizine 12.5 mg tablet 12.5 mg PO TID PRN 12/14/19 02/13/20 History triamcinolone acetonide 0.1 % 1 applic TOPICAL BID 12/14/19 02/13/20 History topical cream bupropion HCl 150 mg PO QAM 02/13/20 02/13/20 History insulin regular hum U-500 conc 02/13/20 History menthol-zinc oxide [Calmoseptine] 1 applic TOPICAL QID 02/13/20 02/13/20 History metoprolol succinate 150 mg PO BID 02/13/20 02/13/20 History miconazole nitrate [Antifungal 1 applic TOPICAL BID 02/13/20 02/13/20 History Cream (miconazole)] [id number] 1 cap PO BID 02/13/20 02/13/20 History [[facility]] oxybutynin chloride 5 mg PO HS 02/13/20 02/13/20 History warfarin 2 mg PO MURILLO 02/13/20 02/13/20 History warfarin 4 mg PO [id number] 02/13/20 02/13/20 History Patient History Medical History Arthritis Atrial fibrillation (Chronic) paroxysmal Atrial flutter (Chronic) Bifascicular block (Chronic) CAD (coronary artery disease) Cardiomyopathy Chronic anticoagulation (Chronic) Chronic diastolic CHF (congestive heart failure) Chronic venous insufficiency CKD (chronic kidney disease) stage 3, GFR 30-59 ml/min (Chronic) Claustrophobia (Chronic) Closed fracture of thyroid cartilage (Resolved) COPD, moderate (Chronic) Depression (Chronic) Diabetes mellitus, type 2 (Chronic) insulin pump Fatty liver (Chronic) Gout (Chronic) Hyperlipidemia (Chronic) Hypertension (Chronic) Hypothyroidism (Chronic) Iatrogenic pulmonary embolism Interstitial lung disease (Chronic) Morbid obesity (Chronic) MRSA infection (Inactive) Nephrolithiasis Nocturnal hypoxemia (Chronic) SALAS (obstructive sleep apnea) Osteoarthritis (Chronic) Paroxysmal atrial fibrillation (Chronic) Prolonged QT interval Pulmonary embolism (Resolved) B/L- 5+ years ago Sarcoidosis (Chronic) possible- evaluated by pulmonary; felt no active sarcoidosis and would not merit steroid therapy given weight/diabetic state. 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) "prior EF of 25% while in aflutter, subsequently normal in NSR" Surgical History H/O cardiac radiofrequency ablation H/O prior ablation treatment (Chronic) History of arthroscopic knee surgery (Resolved) History of bronchoscopy (Resolved) History of cataract surgery (Resolved) local anesthesia only per pt History of cholecystectomy (Chronic) History of extraction of renal calculus (Resolved) History of lung surgery (Resolved) thoracoscopy, right VATS, wedge resection History of umbilical hernia repair (Resolved) Hx of carpal tunnel repair (Chronic) Pacemaker (Chronic) Implanted 02/2017 secondary to Sinus node dysfunction/tachy jared syndrome/3rd degree AVB [employer] Pacer check 12/24/17 Status post incision and drainage (Acute) Family History Mother Cancer Social History Smoking Status: Never smoker Second Hand Exposure: No; Hx Alcohol Use: No Hx Substance Use: No Preferred Language: Syriac Communication Ability: Effective Visual Impairment: No Limitations Hearing Ability: Normal Self Storage Manager Required: No Beliefs That Will Affect Care: None marital status: Current Living Situation: Alone Current Living Situation Comment: [facility] current occupational status: retired How many Children do You have: 2 Feels Safe at Home: Yes Safety Concerns: Feels Safe At This Time Diet Comment: FLUID RESTRICTION during the past year weight has: other Review of Systems Review of Systems: All systems reviewed & are unremarkable except as noted in HPI & below Physical Exam Physical Exam: Temp Pulse Resp BP Pulse Ox 36.5 C 69 20 106/53 L 96 02/14/20 04:05 02/14/20 09:40 02/14/20 09:40 02/14/20 08:59 02/14/20 04:05 Constitutional: + obese; no acute distress Respiratory: mildly decreased BS at the bases bilaterally Cardiovascular: Rate/Rhythm: + irregularly irregular Heart Sounds: no murmur Vessels: no JVD Extremities: + edema (trace LE edema, venous stasis changes) Gastrointestinal (Abdomen): normal bowel sounds, soft, nontender, no hepatosplenomegaly Neurologic: PERRL, EOMI, accommodation nl, no face palsy, no dysarthria Results & Data ([facility]) Vital Signs (Past 12 Hours) Vital Signs Temp Pulse Pulse Resp BP BP Pulse Ox 02/14/20 09:40 69 20 02/14/20 09:30 71 13 02/14/20 09:20 67 13 02/14/20 09:10 70 21 02/14/20 09:00 65 16 02/14/20 08:59 70 20 106/53 L 02/14/20 08:57 71 16 90/51 L 02/14/20 08:50 65 10 L 02/14/20 08:40 66 15 02/14/20 08:30 62 23 02/14/20 08:20 68 19 02/14/20 08:10 68 16 02/14/20 08:00 77 16 02/14/20 07:50 65 13 02/14/20 07:40 63 13 02/14/20 07:30 71 13 02/14/20 07:20 65 18 02/14/20 07:10 61 3 L 02/14/20 07:00 60 4 L 02/14/20 06:50 62 23 02/14/20 06:40 61 14 02/14/20 06:30 65 9 L 02/14/20 06:20 61 12 02/14/20 06:10 79 28 H 02/14/20 06:00 77 25 H 02/14/20 04:05 36.5 C 62 16 98/47 L 96 02/14/20 00:00 36.4 C L 71 20 108/61 96 Laboratory Results Cardiac Enzymes 02/13/20 02/13/20 02/14/20 Range/Units 17:33 23:27 05:21 AST 32 (15-37) U/L Troponin I < 0.015 < 0.015 < 0.015 (0-0.045) ng/ml Coagulation 02/13/20 02/14/20 Range/Units 17:33 05:21 PT 18.9 H 18.9 H (9.0-12.0) Seconds APTT 38.6 H (21.0-31.0) Seconds CBC 02/13/20 02/14/20 Range/Units 17:33 05:21 WBC 6.32 5.73 (4.8-10.8) K/uL RBC 4.72 4.52 L (4.7-6.1) M/uL Hgb 13.9 L 13.5 L (14.0-18.0) g/dL Hct 42.8 41.2 L (42-52) % Plt Count 159 135 (130-400) K/uL Neut # (Auto) 3.71 (1.4-6.5) K/uL Lymph # (Auto) 1.70 (1.2-3.4) K/uL Mora # (Auto) 0.73 H (0.11-0.59) K/uL Eos # (Auto) 0.13 (0-0.5) K/uL Baso # (Auto) 0.04 (0-0.2) K/uL Comprehensive Metabolic Panel 02/13/20 02/14/20 Range/Units 17:33 05:21 Sodium 139 143 (136-145) mmol/L Potassium 4.0 3.5 (3.5-5.1) mmol/L Chloride 104 106 (98-107) mmol/L Carbon Dioxide 28 31 (21-32) mmol/L BUN 44 H 43 H (7-18) mg/dl Creatinine 2.15 H 1.79 H D (0.6-1.4) mg/dl Glucose 89 94 (70-99) mg/dl Calcium 9.7 9.1 (8.5-10.1) mg/dl Direct Bilirubin 0.2 (0-0.2) mg/dl AST 32 (15-37) U/L ALT 30 (12-78) U/L Alkaline Phosphatase 118 H (45-117) U/L Total Protein 7.8 (6.4-8.2) gm/dl Albumin 3.5 (3.4-5.0) gm/dl Intake and Output 02/13/20 02/14/20 02/14/20 22:59 06:59 14:59 Intake Total 240 / 240 Output Total 100 / 800 700 / 800 Balance 140 / -560 -700 / -560 Intake: Oral 240 / 240 Output: Urine 100 / 800 700 / 800 Other: Other Intake Source NPO # Unmeasured Voids 1 1 Weight 148.7 kg 148.7 kg 148.7 kg Patient Weight 02/15/20 06:59 Weight 148.7 kg (1) Stage II pressure ulcer of buttock Laterality: right Qualified Code(s): L89.312 - Pressure ulcer of right buttock, stage 2
[2020-02-14] MEDS ORDERED: HumuLIN-R U-500 45 UNITS in SYRINGE 0 ML SC SCH (11:30)
--- NOTE | 2020-02-14 11:35 | Electrocardiogram Report ---
Test Reason : Blood Pressure : / mmHG Vent. Rate : 077 BPM Atrial Rate : 079 BPM P-R Int : 000 ms QRS Dur : 156 ms QT Int : 408 ms P-R-T Axes : 000 -73 043 degrees QTc Int : 461 ms Atrial fibrillation with frequent ventricular-paced complexes and with premature ventricular or aberr antly conducted complexes Right bundle branch block Left anterior fascicular block Bifascicular block Abnormal ECG When compared with ECG of 30-MAY-2019 09:23, Electronic ventricular pacemaker has replaced Atrial fibrillation Vent. rate has decreased BY 40 BPM Confirmed by Luis Jones ([id number]) on 02/14/2020 11:35:32 AM Referred By: Ryland Harmon Confirmed By:Todd Jones
--- NOTE | 2020-02-14 11:38 | Electrocardiogram Report ---
Test Reason : Blood Pressure : / mmHG Vent. Rate : 062 BPM Atrial Rate : 000 BPM P-R Int : 000 ms QRS Dur : 168 ms QT Int : 480 ms P-R-T Axes : 000 -70 078 degrees QTc Int : 487 ms Atrial fibrillation with frequent ventricular-paced complexes Left axis deviation Right bundle branch block Inferior infarct , age undetermined Abnormal ECG When compared with ECG of 13-FEB-2020 16:21, (unconfirmed) Vent. rate has decreased BY 15 BPM Confirmed by Luis Jones ([id number]) on 02/14/2020 11:38:34 AM Referred By: Ryland Harmon Confirmed By:Todd Jones
--- NOTE | 2020-02-14 13:05 | Pharmacy Report ---
Pharmacy Glycemic Short Note 2 - Date of Service February 14, 2020 - Glycemic Short BSG Results (Last 24 hours): 02/13/20 02/13/20 02/13/20 17:33 18:49 19:10 Glucose 89 POC Glucose 55 L* 78 02/13/20 02/13/20 02/13/20 20:25 21:11 22:00 Glucose POC Glucose 57 L* 72 112 H 02/14/20 02/14/20 02/14/20 00:26 03:58 05:21 Glucose 94 POC Glucose 103 H 83 02/14/20 02/14/20 07:53 11:11 Glucose POC Glucose 148 H 264 H OUTPATIENT ANTIDIABETIC REGIMEN: * U-500 insulin pump (settings provided by consulting provider/patient chart) * Basal: U-500 rate (U-100 equivalent*) * 0438-2854: 0.6 unit/hr (3 unit/hr*) * 9021-4938: 1.7 unit/hr (8.5 unit/hr*) * 8414-3618: 2 unit/hr (10 unit/hr*) * 6903-9567: 1.9 unit/hr (9.5 unit/hr*) * 6927-5002: 1 unit/hr (5 unit/hr*) * 5804-7947: 0.6 unit/hr (3 unit/hr*) * Bolus: 20 units (100 units*) w/ breakfast, 18 units (90 units*) w/ lunch, and 11 units (55 units*) w/ dinner * Sliding scale: CF of 15 for BSG over 150 mg/dL * Total daily dose: ~407 units * A1c 7.2% 02/14/20 ASSESSMENT: * Hypoglycemia has resolved * Fasting BSG up to 148 this AM - gave 20 units NPH due to ongoing NPO status * Pre-lunch BSG up to 264 however pt did not each breakfast. A diet is now ordered and he will receive lunch tray. Will initiate U500 regimen TID based upon data from prior admissions where he required ~170-180 units per day while tolerating a diet. Of note, during past hospitalizations his insulin requirements are substantially less than those provided by his insulin pump. PLAN FOR INPATIENT GLYCEMIC CONTROL: * U500 regimen: * Will need to give additional U500 w/ lunch and dinner today to make up for insulin deficit. Will give 45 units w/ lunch (+ Novolog correction) then 80 units with evening meal. * Starting 8/5 AM: 70 units w/ breakfast + 50 units w/ lunch + 40 units w/ dinner (~40-45% TDD w/ breakfast, ~30-40% TDD w/ lunch, ~20-30% TDD w/ dinner) * Bolus insulin * NovoLog per scale ACHS and at 0000 + 0400 tonight * Goal Range: Low 110 mg/dL - High 140 mg/dL * Correction Factor: 8 mg/dL/unit * No carb coverage as U500 provides prandial insulin PLAN FOR DISCHARGE: * may resume his insulin pump on discharge
--- NOTE | 2020-02-14 15:39 | Hospitalist Progress Note ---
Date of Service February 14, 2020 Assessment & Plan (1) Chest pain: Per admitting service notes: -Patient presenting by referral to outpatient cardiology for evaluation of chest pain concerning for unstable angina -Risk factors: HTN, dyslipidemia, obesity, DM type II Troponins x3 EKG no signs of acute ischemia or infarct Echocardiogram: Normal left ventricular wall thickness Left ventricular wall motion is normal LV ejection fraction 55 to 60% Mild mitral regurgitation Due to patient's body habitus, cardiology feels cardiac stress test will be limited Per Dr. Camarena, if chest pain-free with ambulation, likely to be discharged tomorrow (2) Chronic diastolic CHF (congestive heart failure): -Euvolemic -Continue furosemide, spironolactone, metolazone (3) Diabetes mellitus, type 2: -Hgb A1c 7.7 11/2019 -On insulin pump -Developed symptomatic hypoglycemia while in the ED (glucose 55), improved after half amp D50 -Insulin pump discontinued by caregiver -Pharmacy consulted for glycemic management Follow recommendations (4) Decubitus ulcer: -Has been following with wound center for decubitus ulcer on buttocks -Was placed on Bactrim on 01/29 for 14-day course for MRSA infection-course completed for patient -Wound care consulted for inpatient evaluation (5) Pacemaker: (6) Tachy-sherry syndrome: -Pacemaker interrogation (7) History of pulmonary embolism: -Anticoagulated on Coumadin, INR 1.9 (8) Hypertension: -BP controlled, continue metoprolol (9) Paroxysmal atrial fibrillation: -Rate controlled on digoxin and metoprolol -Continue Coumadin, INR 1.9 Monitor INR (10) CKD (chronic kidney disease) stage 3, GFR 30-59 ml/min: -Baseline creatinine high ones to low twos -Creatinine 1.79 (11) Hypothyroidism: -Continue levothyroxine (12) COPD, moderate: -No signs of acute extubation (13) SALAS (obstructive sleep apnea): -CPAP as per home settings (14) DVT prophylaxis: -On Coumadin, INR 1.9 Disposition Lives at home, independent, with home health services will order PT and OT evaluation Anticipate discharge to home when medically stable and cleared by traffic chief Admission and Anticipated Discharge Date Admission Date: February 13, 2020 Subjective Follow-up for chest pain Seen resting in bed, comfortable, not in distress, sitting up No recurrence of chest pain No shortness of breath, palpitations, dizziness No other symptoms Review of Systems Review of Systems: All systems reviewed & are unremarkable except as noted in HPI & below Physical Exam Physical Exam: General- oriented x 3, not in distress, speaks in sentences with no effort or accessory muscle use Head- atraumatic Eyes- PERRL, EOMI, anicteric ENT- oropharynx clear Neck- supple, no JVD, no adenopathy, no thyromegaly; carotids +2/2, no bruits appreciated Lungs- clear to auscultation bilaterally, no rales/wheezes Heart- normal rate, irregularly irregular rhythm; no murmur, no gallop, no rub appreciated Abdomen- normal bowel sounds, nondistended, soft, nontender, no masses or hepatosplenomegaly Extremities-mild lower leg edema, no calf tenderness; peripheral pulses intact Neuro- alert, oriented x 3; CN 2-12 grossly intact; motor 5/5 bilaterally;sensation 100% on all extremities; no other gross focal neurologic deficits Skin- warm & dry Results & Data Results & Data ([facility]) Vital Signs (Past 12 Hours) Vital Signs Temp Pulse Pulse Resp BP BP Pulse Ox 02/14/20 14:10 60 22 02/14/20 14:00 60 23 02/14/20 13:50 65 25 H 02/14/20 13:40 60 23 02/14/20 13:30 63 11 L 02/14/20 13:23 64 28 H 122/59 L 02/14/20 13:20 71 16 02/14/20 13:10 60 25 H 02/14/20 13:00 63 29 H 02/14/20 12:50 60 25 H 02/14/20 12:40 60 21 02/14/20 12:30 62 27 H 02/14/20 12:20 63 16 02/14/20 12:10 80 15 02/14/20 12:00 36.9 C 78 14 02/14/20 11:50 62 16 02/14/20 11:40 62 24 02/14/20 11:30 80 15 02/14/20 11:20 66 14 02/14/20 11:10 66 23 02/14/20 11:00 82 18 02/14/20 10:50 63 17 02/14/20 10:40 73 24 02/14/20 10:30 76 14 02/14/20 10:20 72 24 02/14/20 10:10 63 14 02/14/20 10:00 61 20 02/14/20 09:50 72 34 H 02/14/20 09:40 69 20 02/14/20 09:30 71 13 02/14/20 09:20 67 13 02/14/20 09:10 70 21 02/14/20 09:00 65 16 02/14/20 08:59 70 20 106/53 L 02/14/20 08:57 71 16 90/51 L 02/14/20 08:50 65 10 L 02/14/20 08:40 66 15 02/14/20 08:30 62 23 02/14/20 08:20 68 19 02/14/20 08:10 68 16 02/14/20 08:00 77 16 02/14/20 07:50 65 13 02/14/20 07:40 63 13 02/14/20 07:30 71 13 02/14/20 07:20 65 18 02/14/20 07:10 61 3 L 02/14/20 07:00 60 4 L 02/14/20 06:50 62 23 02/14/20 06:40 61 14 02/14/20 06:30 65 9 L 02/14/20 06:20 61 12 02/14/20 06:10 79 28 H 02/14/20 06:00 77 25 H 02/14/20 04:05 36.5 C 62 16 98/47 L 96 Diagnostic Findings Laboratory Results - last 24 hr 02/13/20 02/13/20 02/13/20 17:33 17:33 17:33 WBC 6.32 RBC 4.72 Hgb 13.9 L Hct 42.8 MCV 90.7 MCH 29.4 MCHC 32.5 RDW Std Deviation 50.5 H RDW Coeff of Baldo 15.2 H Plt Count 159 MPV 10.4 Immature Gran % (Auto) 0.2 Neut % (Auto) 58.6 Lymph % (Auto) 26.9 [place] % (Auto) 11.6 Eos % (Auto) 2.1 Baso % (Auto) 0.6 Neut # (Auto) 3.71 Lymph # (Auto) 1.70 [place] # (Auto) 0.73 H Eos # (Auto) 0.13 Baso # (Auto) 0.04 Immature Gran # (Auto) 0.01 PT 18.9 H INR 1.9 H APTT 38.6 H PTT Ratio 1.4 VBG pH VBG pCO2 VBG pO2 VBG HCO3 VBG O2 Saturation VBG Base Excess Barometric Pressure Sodium 139 Potassium 4.0 Chloride 104 Carbon Dioxide 28 Anion Gap 7.0 BUN 44 H Creatinine 2.15 H Est Cr Clr Drug Dosing 48.0 Est GFR ( Amer) 35.6 Est GFR (Non-Af Amer) 30.7 BUN/Creatinine Ratio 20.3 H Glucose 89 POC Glucose Estimat Average Glucose Hemoglobin A1c Calcium 9.7 Phosphorus 2.8 Magnesium 2.6 H Total Bilirubin 0.9 Direct Bilirubin 0.2 AST 32 ALT 30 Alkaline Phosphatase 118 H Troponin I < 0.015 NT-Pro-B Natriuret Pep 1698 H Total Protein 7.8 Albumin 3.5 Globulin 4.3 H Albumin/Globulin Ratio 0.8 L Lipase 94 TSH Nasal Screen MRSA (PCR) 02/13/20 02/13/20 02/13/20 17:33 17:33 18:49 WBC RBC Hgb Hct MCV MCH MCHC RDW Std Deviation RDW Coeff of Baldo Plt Count MPV Immature Gran % (Auto) Neut % (Auto) Lymph % (Auto) [place] % (Auto) Eos % (Auto) Baso % (Auto) Neut # (Auto) Lymph # (Auto) [place] # (Auto) Eos # (Auto) Baso # (Auto) Immature Gran # (Auto) PT INR APTT PTT Ratio VBG pH 7.41 VBG pCO2 47 VBG pO2 34 VBG HCO3 29 VBG O2 Saturation 63.5 VBG Base Excess 3.8 Barometric Pressure 732.3 Sodium Potassium Chloride Carbon Dioxide Anion Gap BUN Creatinine Est Cr Clr Drug Dosing Est GFR ( Amer) Est GFR (Non-Af Amer) BUN/Creatinine Ratio Glucose POC Glucose 55 L* Estimat Average Glucose Hemoglobin A1c Calcium Phosphorus Magnesium Total Bilirubin Direct Bilirubin AST ALT Alkaline Phosphatase Troponin I NT-Pro-B Natriuret Pep Total Protein Albumin Globulin Albumin/Globulin Ratio Lipase TSH 0.969 Nasal Screen MRSA (PCR) 02/13/20 02/13/20 02/13/20 19:10 20:00 20:25 WBC RBC Hgb Hct MCV MCH MCHC RDW Std Deviation RDW Coeff of Baldo Plt Count MPV Immature Gran % (Auto) Neut % (Auto) Lymph % (Auto) [place] % (Auto) Eos % (Auto) Baso % (Auto) Neut # (Auto) Lymph # (Auto) [place] # (Auto) Eos # (Auto) Baso # (Auto) Immature Gran # (Auto) PT INR APTT PTT Ratio VBG pH VBG pCO2 VBG pO2 VBG HCO3 VBG O2 Saturation VBG Base Excess Barometric Pressure Sodium Potassium Chloride Carbon Dioxide Anion Gap BUN Creatinine Est Cr Clr Drug Dosing Est GFR ( Amer) Est GFR (Non-Af Amer) BUN/Creatinine Ratio Glucose POC Glucose 78 57 L* Estimat Average Glucose Hemoglobin A1c Calcium Phosphorus Magnesium Total Bilirubin Direct Bilirubin AST ALT Alkaline Phosphatase Troponin I NT-Pro-B Natriuret Pep Total Protein Albumin Globulin Albumin/Globulin Ratio Lipase TSH Nasal Screen MRSA (PCR) Negative 02/13/20 02/13/20 02/13/20 21:11 22:00 23:27 WBC RBC Hgb Hct MCV MCH MCHC RDW Std Deviation RDW Coeff of Baldo Plt Count MPV Immature Gran % (Auto) Neut % (Auto) Lymph % (Auto) [place] % (Auto) Eos % (Auto) Baso % (Auto) Neut # (Auto) Lymph # (Auto) [place] # (Auto) Eos # (Auto) Baso # (Auto) Immature Gran # (Auto) PT INR APTT PTT Ratio VBG pH VBG pCO2 VBG pO2 VBG HCO3 VBG O2 Saturation VBG Base Excess Barometric Pressure Sodium Potassium Chloride Carbon Dioxide Anion Gap BUN Creatinine Est Cr Clr Drug Dosing Est GFR ( Amer) Est GFR (Non-Af Amer) BUN/Creatinine Ratio Glucose POC Glucose 72 112 H Estimat Average Glucose Hemoglobin A1c Calcium Phosphorus Magnesium Total Bilirubin Direct Bilirubin AST ALT Alkaline Phosphatase Troponin I < 0.015 NT-Pro-B Natriuret Pep Total Protein Albumin Globulin Albumin/Globulin Ratio Lipase TSH Nasal Screen MRSA (PCR) 02/14/20 02/14/20 02/14/20 00:26 03:58 05:21 WBC RBC Hgb Hct MCV MCH MCHC RDW Std Deviation RDW Coeff of Baldo Plt Count MPV Immature Gran % (Auto) Neut % (Auto) Lymph % (Auto) [place] % (Auto) Eos % (Auto) Baso % (Auto) Neut # (Auto) Lymph # (Auto) [place] # (Auto) Eos # (Auto) Baso # (Auto) Immature Gran # (Auto) PT INR APTT PTT Ratio VBG pH VBG pCO2 VBG pO2 VBG HCO3 VBG O2 Saturation VBG Base Excess Barometric Pressure Sodium Potassium Chloride Carbon Dioxide Anion Gap BUN Creatinine Est Cr Clr Drug Dosing Est GFR ( Amer) Est GFR (Non-Af Amer) BUN/Creatinine Ratio Glucose POC Glucose 103 H 83 Estimat Average Glucose 160 Hemoglobin A1c 7.2 H Calcium Phosphorus Magnesium Total Bilirubin Direct Bilirubin AST ALT Alkaline Phosphatase Troponin I NT-Pro-B Natriuret Pep Total Protein Albumin Globulin Albumin/Globulin Ratio Lipase TSH Nasal Screen MRSA (PCR) 02/14/20 02/14/20 02/14/20 05:21 05:21 05:21 WBC 5.73 RBC 4.52 L Hgb 13.5 L Hct 41.2 L MCV 91.2 MCH 29.9 MCHC 32.8 RDW Std Deviation 50.0 H RDW Coeff of Baldo 15.1 H Plt Count 135 MPV 10.3 Immature Gran % (Auto) Neut % (Auto) Lymph % (Auto) [place] % (Auto) Eos % (Auto) Baso % (Auto) Neut # (Auto) Lymph # (Auto) [place] # (Auto) Eos # (Auto) Baso # (Auto) Immature Gran # (Auto) PT 18.9 H INR 1.9 H APTT PTT Ratio VBG pH VBG pCO2 VBG pO2 VBG HCO3 VBG O2 Saturation VBG Base Excess Barometric Pressure Sodium 143 Potassium 3.5 Chloride 106 Carbon Dioxide 31 Anion Gap 6.0 BUN 43 H Creatinine 1.79 H D Est Cr Clr Drug Dosing 57.7 Est GFR ( Amer) 44.5 Est GFR (Non-Af Amer) 38.4 BUN/Creatinine Ratio 24.1 H Glucose 94 POC Glucose Estimat Average Glucose Hemoglobin A1c Calcium 9.1 Phosphorus Magnesium Total Bilirubin Direct Bilirubin AST ALT Alkaline Phosphatase Troponin I < 0.015 NT-Pro-B Natriuret Pep Total Protein Albumin Globulin Albumin/Globulin Ratio Lipase TSH Nasal Screen MRSA (PCR) 02/14/20 02/14/20 07:53 11:11 WBC RBC Hgb Hct MCV MCH MCHC RDW Std Deviation RDW Coeff of Baldo Plt Count MPV Immature Gran % (Auto) Neut % (Auto) Lymph % (Auto) [place] % (Auto) Eos % (Auto) Baso % (Auto) Neut # (Auto) Lymph # (Auto) [place] # (Auto) Eos # (Auto) Baso # (Auto) Immature Gran # (Auto) PT INR APTT PTT Ratio VBG pH VBG pCO2 VBG pO2 VBG HCO3 VBG O2 Saturation VBG Base Excess Barometric Pressure Sodium Potassium Chloride Carbon Dioxide Anion Gap BUN Creatinine Est Cr Clr Drug Dosing Est GFR ( Amer) Est GFR (Non-Af Amer) BUN/Creatinine Ratio Glucose POC Glucose 148 H 264 H Estimat Average Glucose Hemoglobin A1c Calcium Phosphorus Magnesium Total Bilirubin Direct Bilirubin AST ALT Alkaline Phosphatase Troponin I NT-Pro-B Natriuret Pep Total Protein Albumin Globulin Albumin/Globulin Ratio Lipase TSH Nasal Screen MRSA (PCR) (1) Diabetes mellitus, type 2 Chronic kidney disease stage: stage 3 (moderate) Diabetes mellitus complication detail: with chronic kidney disease Diabetes mellitus complication status: with kidney complications Diabetes mellitus clinical engineering director insulin use: with clinical engineering director use Qualified Code(s): E11.22 - Type 2 diabetes mellitus with diabetic chronic kidney disease; N18.3 - Chronic kidney disease, stage 3 (moderate); Z79.4 - longterm (current) use of insulin (2) Hypothyroidism Hypothyroidism type: unspecified Qualified Code(s): E03.9 - Hypothyroidism, unspecified (3) Hypertension Hypertension type: unspecified Qualified Code(s): I10 - Essential (primary) hypertension
[2020-02-14] MEDS: DIGOXIN 0.125 MG TAB PO SCH (21:16)
[2020-02-14] MEDS: WARFARIN SOD 4 MG TAB PO SCH (21:16)
[2020-02-14] MEDS: ATORVASTATIN 10 MG TAB PO SCH (21:16)
[2020-02-14] MEDS: OXYBUTYNIN CHLORIDE 5 MG TAB PO SCH (21:16)
[2020-02-15] MEDS: INSULIN ASPART 100 UNITS/ML 3 ML PEN SC SCH ×3 (04:16→11:43)
[2020-02-15 04:46] LABS: INR 1.9 (0.9-1.1); Prothrombin Time 19.3 Seconds (9.0-12.0)
[2020-02-15] MEDS: LEVOTHYROXINE SODIUM 50 MCG TABLET PO SCH (06:24)
[2020-02-15] MEDS: LEVOTHYROXINE SODIUM 200 MCG TABLET PO SCH (06:24)
[2020-02-15] MEDS: allopurinoL 300 MG TAB PO SCH (08:15)
[2020-02-15] MEDS: BuPROPion XL 150 MG TABCR PO SCH (08:15)
[2020-02-15] MEDS: CHOLECALCIFEROL 1,000 UNITS 25 MCG TAB PO SCH (08:15)
[2020-02-15] MEDS: METOPROLOL SUCC 50MG EXT REL TAB PO SCH (08:15)
[2020-02-15] MEDS: FUROSEMIDE 80 MG TAB PO SCH (08:16)
[2020-02-15] MEDS: MAGNESIUM OXIDE 400 MG TAB PO SCH (08:16)
[2020-02-15] MEDS: POTASSIUM CHLORIDE 20 MEQ TABCR PO SCH (08:16)
[2020-02-15] MEDS: DULOXETINE HCL 60 MG CAP PO SCH (08:16)
[2020-02-15] MEDS: SPIRONOLACTONE 25 MG TAB PO SCH (08:16)
[2020-02-15] MEDS: COLCHICINE 0.6 MG TAB PO SCH (08:16)
[2020-02-15] MEDS: PANTOprazole 40 MG TAB PO SCH (08:16)
[2020-02-15] MEDS: ASPIRIN 81 MG ECTAB PO SCH (08:16)
[2020-02-15] MEDS: GABAPENTIN 300 MG CAP PO SCH ×2 (08:16→12:49)
[2020-02-15] MEDS ORDERED: metOLazone 2.5 MG TABLET PO SCH (09:00)
--- NOTE | 2020-02-15 09:18 | Cardiology Progress Note ---
Date of Service February 15, 2020 Assessment & Plan (1) Chest pain: No additional symptoms with exertion or rest. Troponin negative x 3. EKG this am reveals SR, atrial pacing , [place] QRS with RBBB, LAFB, chronic findings, unchanged compared to the EKG dated 06/29/18 when he was also in sinus rhythm. Continue medical management with ASA, metoprolol, atorvastatin. (2) Chronic diastolic CHF (congestive heart failure): Volume status is difficult to assess given his body habitus. Feels well however. Update chemistry panel. (3) Paroxysmal atrial fibrillation: Back in SR. Continue metoprolol and coumadin. Disposition: Await BMP, if stable DC to home on prior to hospital medications. Subjective Patient seen in follow up of chest pain. Feels well. His home health aide is visiting with him. He denies additional chest pain. On telemetry , he has reverted to SR in the 60s having been in a rate controlled AF yesterday. Review of Systems Review of Systems: All systems reviewed & are unremarkable except as noted in HPI & below Physical Exam Physical Exam: Temp Pulse Resp BP Pulse Ox 36.4 C L 64 20 99/42 L 91 02/15/20 04:14 02/15/20 04:14 02/15/20 04:14 02/15/20 04:14 02/15/20 04:14 Constitutional: WD/WN, vitals as above Respiratory: normal respiratory effort, lungs clear to auscultation Cardiovascular: Rate/Rhythm: regular rhythm and + tachycardic Heart Sounds: no murmur Trace LE edema. Chronic venous stasis changes. Gastrointestinal (Abdomen): normal bowel sounds, soft, nontender, no hepatosplenomegaly Results & Data Vital Signs (Past 12 Hours) Vital Signs Temp Pulse Pulse Resp BP Pulse Ox 02/15/20 04:14 36.4 C L 64 20 99/42 L 91 02/14/20 23:57 36.4 C L 66 20 108/54 L 93 02/14/20 21:16 60 Laboratory Results Coagulation INR today 02/14=1.5 02/15/20 Range/Units 04:26 PT 19.3 H (9.0-12.0) Seconds Intake and Output 02/14/20 02/15/20 02/15/20 22:59 06:59 14:59 Intake Total 740 / 1190 250 / 1190 Output Total 550 / 2225 1175 / 2225 Balance 190 / -1035 -925 / -1035 Intake: Oral 740 / 1190 250 / 1190 Output: Urine 550 / 2225 1175 / 2225 Other: Weight 145.7 kg Diagnostic Findings Coagulation 02/15/20 Range/Units 04:26 PT 19.3 H (9.0-12.0) Seconds Intake and Output 02/14/20 02/15/20 02/15/20 22:59 06:59 14:59 Intake Total 740 / 1190 250 / 1190 Output Total 550 / 2225 1175 / 2225 Balance 190 / -1035 -925 / -1035 Intake: Oral 740 / 1190 250 / 1190 Output: Urine 550 / 2225 1175 / 2225 Other: Weight 145.7 kg
--- NOTE | 2020-02-15 09:38 | Hospitalist Progress Note ---
Date of Service February 15, 2020 Assessment & Plan (1) Chest pain: -Patient presenting by referral to outpatient cardiology for evaluation of chest pain concerning for unstable angina -Troponins x3 -EKG no signs of acute ischemia or infarct -Echocardiogram: Normal left ventricular wall thickness Left ventricular wall motion is normal LV ejection fraction 55 to 60% Mild mitral regurgitation -02/15/2020 cardiology "EKG this am reveals SR, atrial pacing , [place] QRS with RBBB, LAFB, chronic findings, unchanged compared to the EKG dated 06/29/18 when he was also in sinus rhythm. Continue medical management with ASA, metoprolol, atorvastatin." (2) Chronic diastolic CHF (congestive heart failure): -Euvolemic -on furosemide, spironolactone, metolazone (3) Tachy-sherry syndrome: -has Pacemaker -current sinus rhythm (4) Pacemaker: (5) Paroxysmal atrial fibrillation: -Rate controlled on digoxin and metoprolol -Continue Coumadin, INR 1.9 (6) History of pulmonary embolism: -pulmonary embolism in the past -on room air -Anticoagulated on Coumadin, INR 1.9 (7) Hypertension: -on metoprolol and diuretics -recheck blood pressure on 02/15/2020 at 9:35 AM is 115/63 (8) CKD (chronic kidney disease) stage 3, GFR 30-59 ml/min: -Baseline creatinine high ones to low twos -admission Creatinine 1.79 (9) Diabetes mellitus, type 2: -Hgb A1c 7.7 11/2019 -On insulin pump at home -Developed symptomatic hypoglycemia while in the ED (glucose 55), improved after half amp D50 -his blood glucose subsequently hyperglycemic -Pharmacy consulted for glycemic management -pharmacy glycemic control recommends resume his insulin pump on discharge, close outpatient follow up of blood glucose after hospital discharge (10) Decubitus ulcer: Decubitus ulcer (Stage 1 to 2), present on admission -Has been following with wound center for decubitus ulcer on buttocks; Was placed on Bactrim on 01/29 for 14-day course for MRSA infection-course completed for patient Patient's caregiver reports that patient has wound care clinic with Adilene Alonzo on Thursday02/17/2020 (11) Hypothyroidism: -Continue levothyroxine (12) COPD, moderate: -No signs of acute extubation (13) SALAS (obstructive sleep apnea): Morbid Obesity with BMI 47.4 -CPAP as per home settings (14) DVT prophylaxis: -On Coumadin the upcoming appointments 02/17/2020 8:20 AM Provider Scotty Jara DO Department General Internal Medicine [facility] 02/17/2020 9:10 AM Provider [facility] Department Pharmacy, [facility] 02/17/2020 10:30 AM Provider Mtneel Blake Department Pharmacy, [facility] Patient's caregiver reports that patient has wound care clinic with Adilene Alonzo on Thursday02/17/2020 02/21/2020 9:30 AM Provider Loreta Parekh [facility] [employer] Department Care Coordination 02/28/2020 11:00 AM Provider CHIARA Medrano Department [facility] 02/29/2020 8:00 AM Provider Aminah Wise RDN Department [facility] 03/01/2020 8:30 AM Provider Jcarlos Haider PA-C Department Cardiology, [facility] Admission and Anticipated Discharge Date Admission Date: February 13, 2020 Subjective Patient does not have distress. denies headache of dizziness. he was able to stand up and show the Decubitus ulcer (Stage 1 to 2). his caregiver reports upcoming outpatient wound care followup patient on room air. no shortness of breath. no chest pain. no abdominal or GI symptoms. Review of Systems Review of Systems: All systems reviewed & are unremarkable except as noted in Subjective Physical Exam Constitutional: + obese and comfortable Eyes: PERRL, conjunctivae normal, anicteric sclerae EOM intact bilaterally ENMT: external ear and nose normal, oropharynx normal Neck: trachea midline, no thyromegaly normal visual inspection Respiratory: normal respiratory effort, lungs clear to auscultation Cardiovascular: Rate/Rhythm: + bradycardic Gastrointestinal (Abdomen): normal bowel sounds, soft, nontender, no hepatosplenomegaly Musculoskeletal: Head/Neck/Chest: normocephalic and head atraumatic Skin: Trauma: + evidence of skin trauma (Decubitus ulcer (Stage 1 to 2), present on admission) Neurologic: PERRL, EOMI, accommodation nl, no face palsy, no dysarthria CN's II-XI intact bilaterally Psychiatric: Orientation: alert and cooperative Results & Data Results & Data ([facility]) Vital Signs (Past 12 Hours) Vital Signs Temp Pulse Resp BP Pulse Ox 02/15/20 04:14 36.4 C L 64 20 99/42 L 91 02/14/20 23:57 36.4 C L 66 20 108/54 L 93 (1) Diabetes mellitus, type 2 Chronic kidney disease stage: stage 3 (moderate) Diabetes mellitus complication detail: with chronic kidney disease Diabetes mellitus complication status: with kidney complications Diabetes mellitus senior living insulin use: with terminal clerk use Qualified Code(s): E11.22 - Type 2 diabetes mellitus with diabetic chronic kidney disease; N18.3 - Chronic kidney disease, stage 3 (moderate); Z79.4 - [facility] (current) use of insulin (2) Hypothyroidism Hypothyroidism type: unspecified Qualified Code(s): E03.9 - Hypothyroidism, unspecified (3) Hypertension Hypertension type: unspecified Qualified Code(s): I10 - Essential (primary) hypertension
[2020-02-15 09:59] LABS: BUN Creatinine Ratio 27.4 (10-20); Calcium 9.3 mg/dl (8.5-10.1); Est GFR (African American) 52.1; Est GFR (Non-African American) 44.9
[2020-02-15] MEDS: TRAMADOL HCL 50 MG TABLET PO PRN (12:49)
--- NOTE | 2020-02-15 14:06 | Discharge Summary ---
Date of Service February 15, 2020 Admission HPI Per Admitting Provider 69-year-old male with PMH DM type II on insulin pump, COPD, SALAS, history of pulmonary embolism on Coumadin, tachybradycardia syndrome status post pacemaker, CKD stage III, chronic diastolic CHF, HTN, paroxysmal atrial fibrillation on Coumadin, and other problems listed below who presents the ED by referral of outpatient cardiology for evaluation of chest pain. Patient reports he has been having episodes of chest pain over the past 4 days. Describes chest pain as exertional, pressure/stabbing with some radiation into the left neck. Rates the pain #3/10 at its worst. He has had associated shortness of breath and diaphoresis. Reports pain will resolve with rest. He has not taken any at home sublingual nitroglycerin. He denies lightheadedness, dizziness, syncopal event. No other recent illnesses, fevers, chills. He is following with the wound care center for decubitus ulcer on his buttocks and was placed on Bactrim on 01/29 for a 14-day course. Denies abdominal pain, nausea, vomiting, diarrhea. No urinary symptoms.Patient was seen in the cardiology clinic today and sent to the ED for further evaluation. In the ED, initial troponin is negative. EKG demonstrates atrial fibrillation with some paced beats and PVCs. Patient developed symptomatic hypoglycemia, glucose 55, improved after half amp D50. Patient also received a full dose aspirin. Principal Diagnosis Chest pain Chronic diastolic CHF (congestive heart failure) Paroxysmal atrial fibrillation CKD (chronic kidney disease) stage 3, GFR 30-59 ml/min Type 2 diabetes mellitus with penitentiary current use of insulin Morbid Obesity with BMI 47.4 Decubitus ulcer (Stage 1 to 2), present on admission Discharge Exam Constitutional + obese and comfortable Eyes PERRL, conjunctivae normal, anicteric sclerae EOM intact bilaterally ENMT external ear and nose normal, oropharynx normal Neck trachea midline, no thyromegaly normal visual inspection Respiratory normal respiratory effort, lungs clear to auscultation Cardiovascular Rate/Rhythm: + bradycardic Gastrointestinal (Abdomen) normal bowel sounds, soft, nontender, no hepatosplenomegaly Musculoskeletal Head/Neck/Chest: normocephalic and head atraumatic Skin Trauma: + evidence of skin trauma (Decubitus ulcer (Stage 1 to 2), present on admission) Neurologic PERRL, EOMI, accommodation nl, no face palsy, no dysarthria CN's II-XI intact bilaterally Psychiatric Orientation: alert and cooperative Discharge Data Allergies Allergy/AdvReac Type Severity Reaction Status Date / Time No Known Drug Allergies Allergy Verified 01/27/20 08:00 Consultations 02/13/20 18:12 ED Decision to Admit Stat 02/13/20 20:03 Consult Cardiology Routine Consult Case Management - Discharge Planning Routine Hospital Course (1) Chest pain: -Patient presenting by referral to outpatient cardiology for evaluation of chest pain concerning for unstable angina -Troponins x3 -EKG no signs of acute ischemia or infarct -Echocardiogram: Normal left ventricular wall thickness Left ventricular wall motion is normal LV ejection fraction 55 to 60% Mild mitral regurgitation -02/15/2020 cardiology "EKG this am reveals SR, atrial pacing , [place] QRS with RBBB, LAFB, chronic findings, unchanged compared to the EKG dated 06/29/18 when he was also in sinus rhythm. Continue medical management with ASA, metoprolol, atorvastatin." (2) Chronic diastolic CHF (congestive heart failure): -Euvolemic -on furosemide, spironolactone, metolazone (3) Tachy-sherry syndrome: -has Pacemaker -current sinus rhythm (4) Pacemaker: (5) Paroxysmal atrial fibrillation: -Rate controlled on digoxin and metoprolol -Continue Coumadin, INR 1.9 (6) History of pulmonary embolism: -pulmonary embolism in the past -on room air -Anticoagulated on Coumadin, INR 1.9 (7) Hypertension: -on metoprolol and diuretics -recheck blood pressure on 02/15/2020 at 9:35 AM is 115/63 (8) CKD (chronic kidney disease) stage 3, GFR 30-59 ml/min: -Baseline creatinine high ones to low twos -admission Creatinine 1.79 (9) Diabetes mellitus, type 2: -Hgb A1c 7.7 11/2019 -On insulin pump at home -Developed symptomatic hypoglycemia while in the ED (glucose 55), improved after half amp D50 -his blood glucose subsequently hyperglycemic -Pharmacy consulted for glycemic management while in the hospital and he was resumed his insulin pump by 02/15/2020 -pharmacy glycemic control recommends resume his insulin pump on discharge, close outpatient follow up of blood glucose after hospital discharge (10) Decubitus ulcer: Decubitus ulcer (Stage 1 to 2), present on admission -Has been following with wound center for decubitus ulcer on buttocks; Was placed on Bactrim on 01/29 for 14-day course for MRSA infection-course completed for patient Patient's caregiver reports that patient has wound care clinic with Adilene may on Thursday02/17/2020 (11) Hypothyroidism: -Continue levothyroxine (12) COPD, moderate: -No signs of acute extubation (13) SALAS (obstructive sleep apnea): Morbid Obesity with BMI 47.4 -CPAP as per home settings (14) DVT prophylaxis: -On Coumadin the upcoming appointments 02/17/2020 8:20 AM Provider Scotty Jara DO Department General Internal Medicine [facility] 02/17/2020 9:10 AM Provider [facility] Department Pharmacy, [facility] 02/17/2020 10:30 AM Provider Daisy Blake Department Pharmacy, [facility] Patient's caregiver reports that patient has wound care clinic with Adilene Alonzo on Thursday02/17/2020 02/21/2020 9:30 AM Provider Loreta Parekh [facility] Clasp Machine Operator Department Care Coordination 02/28/2020 11:00 AM Provider CHIARA Medrano Department [facility] 02/29/2020 8:00 AM Provider Aminah Wise RDN Department [facility] 03/01/2020 8:30 AM Provider Jcarlos Haider PA-C Department Cardiology, [facility] Total Time Total Time Spent Total Time Spent (In Minutes): 40 minutes Total Time Includes: Examination of the Patient, Discharge Planning, Medication Reconciliation and Communication With Other Providers Discharge Plan Discharge Items Patient Disposition: Home - Self-Care Reason For Visit: CHEST PAINS Discharge Diagnosis: Chest pain Chronic diastolic CHF (congestive heart failure) Paroxysmal atrial fibrillation CKD (chronic kidney disease) stage 3, GFR 30-59 ml/min Type 2 diabetes mellitus with penitentiary current use of insulin Morbid Obesity with BMI 47.4 Decubitus ulcer (Stage 1 to 2), present on admission Condition on Discharge: Good Activity: Resume your previous activity Non-emergency contact: Primary Care Provider, Specialist and Technology Resource Teacher Call non-emergency contact if: you have any medication questions Follow-up/Referrals: Scotty Jara DO [Primary Care Provider] - Diet: Carb Consistent or DM2, Heart Healthy and Low Sodium (2gm) Quintin Attending Provider Instructions: -Hgb A1c 7.7 11/2019 -On insulin pump at home -Developed symptomatic hypoglycemia while in the ED (glucose 55), improved after half amp D50 -his blood glucose subsequently hyperglycemic -Pharmacy consulted for glycemic management -pharmacy glycemic control recommends resume his insulin pump on discharge, close outpatient follow up of blood glucose after hospital discharge INR is 1.9 on 02/15/2020 and 02/15/2020 creatinine 1.57, serum potassium is 4 on 02/15/2020 upcoming appointments 02/17/2020 8:20 AM Provider Scotty Jara DO Department General Internal Medicine [facility] 02/17/2020 9:10 AM Provider [facility] Department Pharmacy, [facility] 02/17/2020 10:30 AM Provider [facility] Department Pharmacy, [facility] Patient's caregiver reports that patient has wound care clinic with Adilene Alonzo on Thursday02/17/2020 02/21/2020 9:30 AM Provider Loreta Parekh [facility] Clasp Machine Operator Department Care Coordination 02/28/2020 11:00 AM Provider CHIARA Medrano Department [facility] 02/29/2020 8:00 AM Provider Aminah Wise RDN Department [facility] 03/01/2020 8:30 AM Provider Jcarlos Haider PA-C Department Cardiology, [facility] Quintin Manager Ccu Provider Instructions: You have [facility] appointments on 02/16 at 9AM with Kandice Perdomo RN and on 02/20 at 1PM with Loyda YEH Pending Studies at Discharge: No Stand-Alone Forms: My [employer], Smoking Cessation Medications and DC Order Prescriptions: Continued aspirin [Adult Low Dose Aspirin] 81 mg tablet,delayed release (DR/EC) 81 mg PO QAM RF: 0 metolazone 2.5 mg tablet 2.5 mg PO WE RF: 0 duloxetine 60 mg capsule,delayed release(DR/EC) 60 mg PO QAM RF: 0 cholecalciferol (vitamin D3) 2,000 unit capsule 2,000 units PO QAM RF: 0 spironolactone 25 mg Tablet 25 mg PO QAM Qty: 0 RF: 0 digoxin 125 mcg Tablet 0.125 mg PO QPM Qty: 0 RF: 0 colchicine 0.6 mg Capsule 0.6 mg PO QAM Qty: 0 RF: 0 levothyroxine 200 mcg tablet 200 mcg PO QAM Qty: 0 RF: 0 furosemide 80 mg tablet 80 mg PO BID Qty: 0 RF: 0 allopurinol 300 mg tablet 300 mg PO QAM RF: 0 omeprazole 20 mg capsule,delayed release(DR/EC) 20 mg PO QAM RF: 0 atorvastatin 20 mg tablet 10 mg PO HS RF: 0 gabapentin 300 mg capsule 300 mg PO TID RF: 0 acetaminophen 500 mg capsule 500 mg PO Q6H PRN (Reason: Pain) RF: 0 meclizine 12.5 mg tablet 12.5 mg PO TID PRN (Reason: headaches) RF: 0 albuterol sulfate 90 mcg/actuation HFA aerosol inhaler 2 puffs INH Q4H PRN (Reason: Shortness Of Breath) RF: 0 triamcinolone acetonide 0.1 % cream 1 applic topical BID RF: 0 levothyroxine 50 mcg tablet 50 mcg PO QAM RF: 0 sennosides [senna] 8.6 mg Tablet 8.6 mg PO BID PRN (Reason: Constipation) RF: 0 magnesium oxide 400 mg magnesium Tablet 400 mg PO QAM RF: 0 tramadol 50 mg Tablet 50 mg PO Q6H PRN (Reason: Pain, Severe) RF: 0 metoprolol succinate 100 mg tablet extended release 24 hr 150 mg PO BID RF: 0 warfarin 4 mg tablet 2 mg PO MURILLO RF: 0 miconazole nitrate [Antifungal Cream (miconazole)] 2 % Cream 1 applic TOPICAL BID RF: 0 oxybutynin chloride 5 mg Tablet 5 mg PO HS RF: 0 Calmoseptine 0.44-20.6 % Ointment 1 applic TOPICAL QID RF: 0 [facility] 250-2.5-0.5 mg Capsule 1 cap PO BID RF: 0 insulin regular hum U-500 conc 500 unit/mL Solution RF: 0 warfarin 4 mg tablet 4 mg PO [id number] RF: 0 bupropion HCl 150 mg tablet extended release 24 hr 150 mg PO QAM RF: 0 potassium chloride [Klor-Con M20] 20 mEq tablet,ER particles/crystals 20 meq PO BIDM RF: 0 Discontinued diclofenac sodium 1 % gel 2 gm TOP QID RF: 0 Discharge Orders: Discharge Order (Routine); Ordered 02/15/20 Ordered By: Rashaad Torres/Other Patient Handouts: Managing Type 2 Diabetes Admission Data Admit Date/Time: 02/13/20 18:35 Attending Provider: Rashaad Perrin Admit Provider: Mitch Acevedo Primary Care Provider: Scotty Jara Other Providers: Mitch Acevedo ; Mio Camarena ; [place]
[2020-02-19] MEDS ORDERED: WARFARIN SOD 2 MG TAB PO SCH (16:00)
== END 2020-02-15 14:20 | disposition home health service (06) ==
LOC: 1E 16:12 → ED 16:12 → SUATTDRO 18:35 → 1E 19:12

== ENCOUNTER 2020-06-18 19:51 | Inpatient (IN) ==
[2020-06-18] MEDS ORDERED: diphenhydrAMINE 50 MG/ML VIAL IV STA (20:56)
[2020-06-18] MEDS ORDERED: PROCHLORPERAZINE 2 ML IV ONE (20:56)
[2020-06-18] MEDS ORDERED: ACETAMINOPHEN 1,000 MG/100 ML VIAL IV STA (20:56)
[2020-06-18] MEDS ORDERED: SODIUM CHLORIDE 0.9% 1000ML 1,000 ML IV ONE (21:01)
[2020-06-18 21:15] LABS: Basophils # (auto) 0.02 K/uL (0-0.2); Basophils % (auto) 0.4 %; Eosinophils # (auto) 0.12 K/uL (0-0.5); Eosinophils % (auto) 2.4 %; Hematocrit (blood only) 37.9 % (42-52); Immature Granulocytes # (auto) 0.01 K/uL (0.00-0.02); Immature Granulocytes % (auto) 0.2 %; Lymphocytes # (auto) 1.37 K/uL (1.2-3.4); Lymphocytes % (auto) 27.8 %; Mean Corpuscular Hemoglobin 29.5 pg (25-34); Mean Corpuscular Hgb Conc 34.3 g/dL (32-36); Mean Corpuscular Volume 86.1 fL (80-100); Mean Platelet Volume 11.9 fL (7.4-10.4); Monocytes # (auto) 0.48 K/uL (0.11-0.59); Monocytes % (auto) 9.7 %; Neutrophils # (auto) 2.93 K/uL (1.4-6.5); Neutrophils % (auto) 59.5 %; Platelet Count 133 K/uL (130-400); RDW Coefficient of Variation 13.5 % (11.5-14.5); RDW Standard Deviation 42.5 fL (36.4-46.3); White Blood Count 4.93 K/uL (4.8-10.8)
[2020-06-18 21:33] LABS: INR 1.3 (0.9-1.1); Partial Thromboplastin Ratio 1.2; Partial Thromboplastin Time 34.6 Seconds (21.0-31.0); Prothrombin Time 13.4 Seconds (9.0-12.0)
[2020-06-18 21:49] LABS: Alanine Aminotransferase 22 U/L (12-78); Albumin Level 3.3 gm/dl (3.4-5.0); Aspartate Aminotransferase 17 U/L (15-37); Bilirubin Direct 0.3 mg/dl (0-0.2); Bilirubin,Total 1.3 mg/dl (0.2-1); Blood Urea Nitrogen 69 mg/dl (7-18); Carbon Dioxide 30 mmol/L (21-32); Chloride 84 mmol/L (98-107); Creatinine Clr Calc Pharmacy 48.6 ml/min; Est GFR (African American) 37.2; Est GFR (Non-African American) 32.1; Magnesium 2.7 mg/dl (1.8-2.4); Phosphorus 2.5 mg/dl (2.5-4.9); Potassium 4.7 mmol/L (3.5-5.1); Sodium 124 mmol/L (136-145); Thyroid Stimulating Hormone 0.512 uIu/ml (0.300-4.500); Troponin I < 0.015 ng/ml (0-0.045)
[2020-06-18 21:50] LABS: Albumin Globulin Ratio 0.7 (0.9-2); Alkaline Phosphatase 131 U/L (45-117); BUN Creatinine Ratio 33.4 (10-20); Globulin 4.7 gm/dl (2.5-4.0); Glucose 611 mg/dl (70-99); Lipase 113 U/L (73-393)
[2020-06-18] MEDS ORDERED: DKA GOAL RANGE 150-250 mg/dl ONE (22:03)
[2020-06-18 22:10] LABS: Beta-Hydroxybutyrate 2.33 mg/dl (0.2-2.81)
[2020-06-18 22:11] LABS: Base Excess VBG 3.1 mEq/L; HCO3 VBG 30 mmol/L; PCO2 VBG 56 mmHg (38-50); PO2 VBG 31 mmHg; pH VBG 7.35 (7.36-7.41)
--- NOTE | 2020-06-18 22:11 | Emergency Department Note ---
Impression & Plan Uncontrolled diabetes mellitus, Dehydration, Headache, CKD (chronic kidney disease) stage 3, GFR 30-59 ml/min, Chronic diastolic CHF (congestive heart failure) ED Provider Note NAME: CECILE KENDALL AGE: 70 SEX: M ARRIVES VIA: Ambulance INFORMANT: Patient, ED PROVIDER(S): Jonathon Sands MD CHIEF COMPLAINT: Headache, Uncontrolled blood sugar PLAN: Disposition: Admit MEDICAL DECISION MAKING: The patient is a pleasant 70 y/o gentleman with a pmhx of tachybradycardia syndrome status post PPM, A. fib on Coumadin, SALAS, diabetes, CKD, CHF, COPD who presents to the emergency department with uncontrolled blood sugar, headache, fatigue, disorientation ("feeling out of it"). He reports urinating frequently. The patient reports his blood sugars have been in the 500s for the past several days and feels this was due to his insulin pump being broken, which he reports was replaced yesterday but reports still with persistently high blood sugar in the >600 range despite dosing additional insulin. He denies fevers, chills, cough, congestion, vomiting, diarrhea. Denies known covid19 exposures. On arrival the patient is uncomfortable but in NAD, AFVSS. He appears clinically dry. Abdomen is benign. EKG is paced without overt acute ischemia and is similar to previous. CXR negative for acute cardiopulmonary process per my preliminary review. WBC and platelets wnl. H/H similar to prior range. VBG with pH 7.35, unremarkable. Chemistry without acidosis. Cr. 2.0 simialr to prior range. Glucose > 600s with Sodium of 124 that corrects to 130s. OSM 317 and so HHS not likely. Moreover, no significant ketosis. Lactate wnl. LFTs unremarkable. T roponin negative. Lipase wnl. Procalcitonin 0.15, making sepsis less likely . TSH wnl. INR subtherapeutic at 1.3, will defer to admitting team to address. UA pending. CT head negative for acute process per preliminary [facility] report. Covid19 RNA, NAAT test negative. Given patient's significantly high blood glucose despite use of his home insulin pump patient started on DKA protocol with insulin gtt and initial bolus in additional to initial 1L NSS bolus followed by initial maintenance fluids of NSS with 20meq KCL. Patients BSG did respond effectively and gtt was weaned to off per protocol. Unclear etiology to cause of patient's uncontrolled blood sugar, though, malfunction of patient's prior pump is likely per patient's report. Patient is agreeable with admission. Case was discussed with [facility], who will evaluate the patient for admission. Triage Nursing notes reviewed and agree them. Prior medical records reviewed Vital Signs: reviewed and remarkable for no significant abnormalities Differential diagnosis: Infection, dehydration, metabolic abnormality, hypo/hyperglycemia, electrolyte disturbance, anemia, hypoxia, cardiac sources, intracerebral event, toxicologic, neurologic, as well as other pathologies. ER treatment provided: See below. Diagnostics interpreted by me: ECG: Atrial paced, 60 bpm, no ectopy, no overt acute ischemia. Similar to 02/15/2020 Cardiac Monitoring: An order for continuous cardiac monitoring was placed and demonstrated Atrial paced, 60 bpm, no ectopy. Laboratory studies: See below Imaging studies: CXR negative for acute cardiopulmonary process per my preliminary review. [facility] Preliminary Findings Only See Final Report For Complete Findings CT HEAD: Comparison to November 10, 2018. The paranasal sinuses and mastoid air cells are normally aerated. There is no skull fracture or scalp hematoma. There is a normal gyral pattern of the brain. There is no mass lesion or midline shift. The dozier-white matter differentiation is maintained. The ventricles and CSF spaces are normal. There is no evidence of acute large vessel infarct or intracranial hemorrhage. Radiologist: Robert Ledbetter MD Study ready at 00:12 and initial results transmitted at 00:16 Consultation(s): Case [facility], who will evaluate the patient for admission. HPI: The patient is a pleasant 70 y/o gentleman with a pmhx of tachybradycardia syndrome status post PPM, A. fib on Coumadin, SALAS, diabetes, CKD, CHF, COPD who presents to the emergency department with uncontrolled blood sugar, headache, f atigue, disorientation ("feeling out of it"). He reports urinating frequently. The patient reports his blood sugars have been in the 500s for the past several days and feels this was due to his insulin pump being broken, which he reports was replaced yesterday but reports still with persistently high blood sugar in the >600 range despite dosing additional insulin. He denies fevers, chills, cough, congestion, vomiting, diarrhea. Denies known covid19 exposures. ROS: See above HPI for pertinent positives & negatives. A total of 10 systems reviewed and were otherwise negative. PAST MEDICAL HISTORY:See Below PAST SURGICAL HISTORY:See Below FAMILY HISTORY:See Below SOCIAL HISTORY:See Below HOME MEDICATIONS:See Below ALLERGIES:See Below VITALS:See Below PHYSICAL EXAMINATION: GENERAL: Awake, alert, fatigued/uncomfortable-appearing, in no distress HENT: Normocephalic, atraumatic. Oropharynx with dry mucous membranes and otherwise unremarkable. EYES: Normal conjunctiva. Sclera non-icteric. EOMI. No nystamgus. PEARRL. NECK: Supple. No nuchal rigidity. FROM. No JVD. RESPIRATORY: Clear to auscultation. CARDIAC: Regular rate, normal rhythm. Extremities warm and well perfused. Pulses equal. ABDOMEN: Soft, non-distended. No tenderness to palpation. No rebound or guarding. No masses. RECTAL: Deferred. MUSCULOSKELETAL: Chest examination reveals no tenderness. The back is symmetrical on inspection without obvious abnormality. There is no CVA tenderness to palpation. No joint edema. LOWER EXTREMITIES: Calves are equal size bilaterally and non-tender. No edema. No discoloration. NEURO: Normal sensorium. No sensory or motor deficits noted. 5/5 strength and SILT x 4 extremities. Cerebellar function intact including [id number], alternating palms, [id number]. SKIN: No rash or jaundice noted. ED COURSE: Critical Care: I have personally spent greater than 45 minutes of critical care time in the direct management of this patient. This includes bedside care, interpretation of diagnostic studies, and testing, discussion with consultants, patient, and family members, and other required patient management activities. This 45 minutes is in excess of all separately billable procedures. Jonathon Sands MD Past Med/Surg History Medical History (Updated 06/19/20 @ 05:05 by Jonathon Sands MD) Arthritis Atrial fibrillation paroxysmal Atrial flutter Bifascicular block CAD (coronary artery disease) Cardiomyopathy Chronic anticoagulation Chronic diastolic CHF (congestive heart failure) Chronic venous insufficiency CKD (chronic kidney disease) stage 3, GFR 30-59 ml/min Claustrophobia Closed fracture of thyroid cartilage COPD, moderate Depression Diabetes mellitus, type 2 insulin pump Fatty liver Gout Hyperlipidemia Hypertension Hypothyroidism Iatrogenic pulmonary embolism Interstitial lung disease Morbid obesity MRSA infection Nephrolithiasis Nocturnal hypoxemia SALAS (obstructive sleep apnea) Osteoarthritis Paroxysmal atrial fibrillation Prolonged QT interval Pulmonary embolism B/L- 5+ years ago Sarcoidosis possible- evaluated by pulmonary; felt no active sarcoidosis and would not merit steroid therapy given weight/diabetic state. 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 "prior EF of 25% while in aflutter, subsequently normal in NSR" Surgical History H/O cardiac radiofrequency ablation H/O prior ablation treatment History of arthroscopic knee surgery History of bronchoscopy History of cataract surgery local anesthesia only per pt History of cholecystectomy History of extraction of renal calculus History of lung surgery thoracoscopy, right VATS, wedge resection History of umbilical hernia repair Hx of carpal tunnel repair Pacemaker Implanted 02/2017 secondary to Sinus node dysfunction/tachy sherry syndrome/3rd degree AVB [employer] Pacer check 12/24/17 Status post incision and drainage Family History Mother Cancer Social History Smoking Status: Never smoker Second Hand Exposure: No; Hx Alcohol Use: No Hx Substance Use: No Preferred Language: Croatian Communication Ability: Effective Visual Impairment: No Limitations Hearing Ability: Normal Professor Of Sociology Required: No Beliefs That Will Affect Care: None marital status: Current Living Situation: Alone Current Living Situation Comment: [facility] current occupational status: retired How many Children do You have: 2 Feels Safe at Home: Yes Diet Comment: FLUID RESTRICTION during the past year weight has: other Assistive Devices: Glasses, Oxygen - at Night and Walker Allergies Allergies Allergy/AdvReac Type Severity Reaction Status Date / Time No Known Drug Allergies Allergy Unknown Verified 06/19/20 01:43 Home Meds Home Medications Medication Instructions Recorded Confirmed digoxin 0.125 mg PO QPM #0 07/13/16 06/19/20 spironolactone 25 mg PO QAM #0 07/13/16 06/19/20 aspirin 81 mg tablet,delayed 81 mg PO QAM 05/11/18 06/19/20 release metolazone 2.5 mg tablet 2.5 mg PO WE tab 05/11/18 06/19/20 levothyroxine 50 mcg PO QAM 06/24/18 06/19/20 duloxetine 60 mg capsule,delayed 60 mg PO QAM 08/31/18 06/19/20 release magnesium oxide 400 mg PO QAM 04/26/19 06/19/20 sennosides [senna] 8.6 mg PO BID PRN 04/26/19 06/19/20 cholecalciferol (vitamin D3) 50 2,000 units PO QAM 05/13/19 06/19/20 mcg (2,000 unit) capsule allopurinol 300 mg tablet 300 mg PO QAM 05/25/19 06/19/20 levothyroxine 200 mcg tablet 200 mcg PO QAM #0 tab 05/25/19 06/19/20 omeprazole 20 mg capsule,delayed 20 mg PO QAM 05/25/19 06/19/20 release tramadol 50 mg PO BID PRN 05/30/19 06/19/20 potassium chloride [Klor-Con M20] 20 meq PO BIDM 07/12/19 06/19/20 furosemide 80 mg tablet 80 mg PO BID #0 11/23/19 06/19/20 acetaminophen 500 mg capsule 1,000 mg PO Q6H PRN 12/14/19 06/19/20 albuterol sulfate 90 mcg/actuation 2 puffs INH QID PRN gm 12/14/19 06/19/20 aerosol inhaler atorvastatin 20 mg tablet 10 mg PO HS 12/14/19 06/19/20 gabapentin 300 mg capsule 300 mg PO TID 12/14/19 06/19/20 meclizine 12.5 mg tablet 12.5 mg PO TID PRN 12/14/19 06/19/20 triamcinolone acetonide 0.1 % 1 applic TOPICAL BID 12/14/19 06/19/20 topical cream [facility] 1 cap PO BID 02/13/20 06/19/20 bupropion HCl 150 mg PO QAM 02/13/20 06/19/20 insulin regular hum U-500 conc 0 - 160 unit CONTINUOUS 02/13/20 06/19/20 SUBCUTANEOUS INFUSION DAILY metoprolol succinate 150 mg PO BID 02/13/20 06/19/20 miconazole nitrate [Antifungal 1 applic TOPICAL BID PRN 02/13/20 06/19/20 Cream (miconazole)] warfarin 2 mg PO MURILLO 02/13/20 06/19/20 warfarin 4 mg PO MOTUWETHFRSA 02/13/20 06/19/20 colchicine 0.6 mg capsule 0.6 mg PO .qod #0 cap 03/02/20 06/19/20 oxybutynin chloride 10 mg 10 mg PO DAILY 03/29/20 06/19/20 tablet,extended release 24 hr diclofenac sodium 4 g TOPICAL BID 06/19/20 06/19/20 multivitamin with minerals 1 tab PO DAILY 06/19/20 06/19/20 [Multiple Vitamin-Minerals] nitroglycerin 0.4 mg SUBLINGUAL UD PRN 06/19/20 06/19/20 Results & Data (ED) Vital Signs Vital Signs - 24 hr 06/18/20 20:03 06/18/20 20:30 06/18/20 20:56 Temperature 36.6 C Temperature Source Oral Pulse Rate 62 62 Pulse Rate from SpO2 Sensor Respiratory Rate 18 23 Respiratory Effort / Characteristics Non-Labored Spontaneous Non-Labored Spontaneous Respiratory Depth Normal Respiratory Pattern Regular Blood Pressure 126/67 Blood Pressure Mean 86 Pulse Oximetry 95 Oxygen Delivery Method Room Air Room Air Sepsis Recent Fever Within 48 Hours No Sepsis New/Unexplained Change in Mental Status No Sepsis Action Taken by Nursing No Action Required 06/18/20 21:01 06/18/20 21:02 06/18/20 21:26 Temperature Temperature Source Pulse Rate 60 60 Pulse Rate from SpO2 Sensor Respiratory Rate 21 17 Respiratory Effort / Characteristics Non-Labored Spontaneous Respiratory Depth Respiratory Pattern Blood Pressure 120/66 Blood Pressure Mean 91 Pulse Oximetry Oxygen Delivery Method Room Air Sepsis Recent Fever Within 48 Hours Sepsis New/Unexplained Change in Mental Status Sepsis Action Taken by Nursing 06/18/20 21:31 06/18/20 21:56 06/18/20 22:00 Temperature Temperature Source Pulse Rate 60 63 Pulse Rate from SpO2 Sensor Respiratory Rate 17 24 Respiratory Effort / Characteristics Non-Labored Spontaneous Respiratory Depth Respiratory Pattern Blood Pressure 138/80 Blood Pressure Mean 97 Pulse Oximetry Oxygen Delivery Method Room Air Sepsis Recent Fever Within 48 Hours Sepsis New/Unexplained Change in Mental Status Sepsis Action Taken by Nursing 06/18/20 22:26 06/18/20 22:31 06/18/20 22:56 Temperature Temperature Source Pulse Rate 61 Pulse Rate from SpO2 Sensor Respiratory Rate 21 Respiratory Effort / Characteristics Non-Labored Spontaneous Non-Labored Spontaneous Respiratory Depth Respiratory Pattern Blood Pressure 110/63 Blood Pressure Mean 65 Pulse Oximetry Oxygen Delivery Method Room Air Room Air Sepsis Recent Fever Within 48 Hours Sepsis New/Unexplained Change in Mental Status Sepsis Action Taken by Nursing 06/18/20 23:01 06/18/20 23:26 06/18/20 23:30 Temperature Temperature Source Pulse Rate 60 63 Pulse Rate from SpO2 Sensor Respiratory Rate 24 18 Respiratory Effort / Characteristics Non-Labored Spontaneous Non-Labored Spontaneous Respiratory Depth Respiratory Pattern Blood Pressure 129/75 130/83 Blood Pressure Mean 101 93 Pulse Oximetry Oxygen Delivery Method Room Air Room Air Sepsis Recent Fever Within 48 Hours Sepsis New/Unexplained Change in Mental Status Sepsis Action Taken by Nursing 06/19/20 00:00 06/19/20 00:21 06/19/20 00:30 Temperature Temperature Source Pulse Rate 66 Pulse Rate from SpO2 Sensor 65 Respiratory Rate 14 Respiratory Effort / Characteristics Non-Labored Spontaneous Non-Labored Spontaneous Respiratory Depth Respiratory Pattern Blood Pressure Blood Pressure Mean Pulse Oximetry 94 Oxygen Delivery Method Room Air Room Air Room Air Sepsis Recent Fever Within 48 Hours Sepsis New/Unexplained Change in Mental Status Sepsis Action Taken by Nursing 06/19/20 00:45 06/19/20 01:00 06/19/20 01:30 Temperature Temperature Source Pulse Rate 61 60 Pulse Rate from SpO2 Sensor Respiratory Rate 21 21 Respiratory Effort / Characteristics Non-Labored Spontaneous Non-Labored Spontaneous Respiratory Depth Respiratory Pattern Blood Pressure 109/47 L 135/59 L Blood Pressure Mean 61 80 Pulse Oximetry Oxygen Delivery Method Room Air Room Air Room Air Sepsis Recent Fever Within 48 Hours Sepsis New/Unexplained Change in Mental Status Sepsis Action Taken by Nursing 06/19/20 01:31 06/19/20 01:39 06/19/20 02:00 Temperature Temperature Source Pulse Rate 68 66 Pulse Rate from SpO2 Sensor Respiratory Rate 19 20 Respiratory Effort / Characteristics Non-Labored Spontaneous Respiratory Depth Respiratory Pattern Blood Pressure 98/56 L 115/62 Blood Pressure Mean 75 83 Pulse Oximetry Oxygen Delivery Method Room Air Sepsis Recent Fever Within 48 Hours Sepsis New/Unexplained Change in Mental Status Sepsis Action Taken by Nursing 06/19/20 02:01 06/19/20 02:30 06/19/20 02:32 Temperature Temperature Source Pulse Rate 61 62 Pulse Rate from SpO2 Sensor Respiratory Rate 19 17 Respiratory Effort / Characteristics Non-Labored Spontaneous Respiratory Depth Respiratory Pattern Blood Pressure 113/50 L 137/95 Blood Pressure Mean 84 101 Pulse Oximetry Oxygen Delivery Method Room Air Sepsis Recent Fever Within 48 Hours Sepsis New/Unexplained Change in Mental Status Sepsis Action Taken by Nursing 06/19/20 02:37 Temperature Temperature Source Pulse Rate Pulse Rate from SpO2 Sensor Respiratory Rate Respiratory Effort / Characteristics Respiratory Depth Respiratory Pattern Blood Pressure Blood Pressure Mean Pulse Oximetry 92 Oxygen Delivery Method Room Air Sepsis Recent Fever Within 48 Hours Sepsis New/Unexplained Change in Mental Status Sepsis Action Taken by Nursing Laboratory Data Attestation: I reviewed the patient's lab results. Result diagrams: 06/18/20 20:00 06/18/20 20:00 Lab Results 06/18/20 06/18/20 06/18/20 Range/Units 19:56 20:00 20:00 WBC 4.93 (4.8-10.8) K/uL RBC 4.40 L (4.7-6.1) M/uL Hgb 13.0 L (14.0-18.0) g/dL Hct 37.9 L (42-52) % MCV 86.1 (80-100) fL MCH 29.5 (25-34) pg MCHC 34.3 (32-36) g/dL RDW Std Deviation 42.5 (36.4-46.3) fL RDW Coeff of Baldo 13.5 (11.5-14.5) % Plt Count 133 (130-400) K/uL MPV 11.9 H (7.4-10.4) fL Immature Gran % (Auto) 0.2 % Neut % (Auto) 59.5 % Lymph % (Auto) 27.8 % Stanton % (Auto) 9.7 % Eos % (Auto) 2.4 % Baso % (Auto) 0.4 % Neut # (Auto) 2.93 (1.4-6.5) K/uL Lymph # (Auto) 1.37 (1.2-3.4) K/uL Stanton # (Auto) 0.48 (0.11-0.59) K/uL Eos # (Auto) 0.12 (0-0.5) K/uL Baso # (Auto) 0.02 (0-0.2) K/uL Immature Gran # (Auto) 0.01 (0.00-0.02) K/uL PT 13.4 H (9.0-12.0) Seconds INR 1.3 H (0.9-1.1) APTT 34.6 H (21.0-31.0) Seconds PTT Ratio 1.2 VBG pH (7.36-7.41) VBG pCO2 (38-50) mmHg VBG pO2 mmHg VBG HCO3 mmol/L VBG O2 Saturation % VBG Base Excess mEq/L Barometric Pressure mm/Hg Sodium (136-145) mmol/L Potassium (3.5-5.1) mmol/L Chloride (98-107) mmol/L Carbon Dioxide (21-32) mmol/L Anion Gap (3-11) BUN (7-18) mg/dl Creatinine (0.6-1.4) mg/dl Est Cr Clr Drug Dosing ml/min Est GFR ( Amer) Est GFR (Non-Af Amer) BUN/Creatinine Ratio (10-20) Glucose (70-99) mg/dl POC Glucose > 600 H* (70-99) mg/dl Osmolality (280-300) mOsm/kg Lactate (0.4-2.0) mmol/L Calcium (8.5-10.1) mg/dl Phosphorus (2.5-4.9) mg/dl Magnesium (1.8-2.4) mg/dl Total Bilirubin (0.2-1) mg/dl Direct Bilirubin (0-0.2) mg/dl AST (15-37) U/L ALT (12-78) U/L Alkaline Phosphatase (45-117) U/L Troponin I (0-0.045) ng/ml Total Protein (6.4-8.2) gm/dl Albumin (3.4-5.0) gm/dl Globulin (2.5-4.0) gm/dl Albumin/Globulin Ratio (0.9-2) Lipase (73-393) U/L Beta-Hydroxybutyric Acd (0.2-2.81) mg/dl Procalcitonin (0-0.5) ng/ml TSH (0.300-4.500) uIu/ml Urine Color Urine Appearance (Clear) Urine pH (4.5-7.5) Ur Specific [place] (1.000-1.030) Urine Protein (Negative) Urine Glucose (UA) (Negative) Urine Ketones (Negative) Urine Blood (Negative) Urine Nitrite (Negative) Urine Bilirubin (Negative) Urine Urobilinogen (Negative) Ur Leukocyte Esterase (Negative) Urine WBC (Auto) (0-5) /hpf Urine RBC (Auto) (0-4) /hpf U Hyaline Cast (Auto) (0-5) /lpf U Epithel Cells (Auto) (0-5) /lpf Urine Bacteria (Auto) (Negative) Digoxin (0.8-2.0) ng/ml COVID-19 Eval Order SARS-CoV-2, RNA, NAAT (NEGATIVE) 06/18/20 06/18/20 06/18/20 Range/Units 20:00 20:00 20:00 WBC (4.8-10.8) K/uL RBC (4.7-6.1) M/uL Hgb (14.0-18.0) g/dL Hct (42-52) % MCV (80-100) fL MCH (25-34) pg MCHC (32-36) g/dL RDW Std Deviation (36.4-46.3) fL RDW Coeff of Baldo (11.5-14.5) % Plt Count (130-400) K/uL MPV (7.4-10.4) fL Immature Gran % (Auto) % Neut % (Auto) % Lymph % (Auto) % Stanton % (Auto) % Eos % (Auto) % Baso % (Auto) % Neut # (Auto) (1.4-6.5) K/uL Lymph # (Auto) (1.2-3.4) K/uL Stanton # (Auto) (0.11-0.59) K/uL Eos # (Auto) (0-0.5) K/uL Baso # (Auto) (0-0.2) K/uL Immature Gran # (Auto) (0.00-0.02) K/uL PT (9.0-12.0) Seconds INR (0.9-1.1) APTT (21.0-31.0) Seconds PTT Ratio VBG pH (7.36-7.41) VBG pCO2 (38-50) mmHg VBG pO2 mmHg VBG HCO3 mmol/L VBG O2 Saturation % VBG Base Excess mEq/L Barometric Pressure mm/Hg Sodium 124 L (136-145) mmol/L Potassium 4.7 (3.5-5.1) mmol/L Chloride 84 L (98-107) mmol/L Carbon Dioxide 30 (21-32) mmol/L Anion Gap 10.0 (3-11) BUN 69 H (7-18) mg/dl Creatinine 2.06 H (0.6-1.4) mg/dl Est Cr Clr Drug Dosing 48.6 ml/min Est GFR ( Amer) 37.2 Est GFR (Non-Af Amer) 32.1 BUN/Creatinine Ratio 33.4 H (10-20) Glucose 611 H* (70-99) mg/dl POC Glucose (70-99) mg/dl Osmolality 317 H (280-300) mOsm/kg Lactate (0.4-2.0) mmol/L Calcium 10.0 (8.5-10.1) mg/dl Phosphorus 2.5 (2.5-4.9) mg/dl Magnesium 2.7 H (1.8-2.4) mg/dl Total Bilirubin 1.3 H (0.2-1) mg/dl Direct Bilirubin 0.3 H (0-0.2) mg/dl AST 17 (15-37) U/L ALT 22 (12-78) U/L Alkaline Phosphatase 131 H (45-117) U/L Troponin I < 0.015 (0-0.045) ng/ml Total Protein 8.0 (6.4-8.2) gm/dl Albumin 3.3 L (3.4-5.0) gm/dl Globulin 4.7 H (2.5-4.0) gm/dl Albumin/Globulin Ratio 0.7 L (0.9-2) Lipase 113 (73-393) U/L Beta-Hydroxybutyric Acd 2.33 (0.2-2.81) mg/dl Procalcitonin 0.15 (0-0.5) ng/ml TSH 0.512 (0.300-4.500) uIu/ml Urine Color Urine Appearance (Clear) Urine pH (4.5-7.5) Ur Specific [place] (1.000-1.030) Urine Protein (Negative) Urine Glucose (UA) (Negative) Urine Ketones (Negative) Urine Blood (Negative) Urine Nitrite (Negative) Urine Bilirubin (Negative) Urine Urobilinogen (Negative) Ur Leukocyte Esterase (Negative) Urine WBC (Auto) (0-5) /hpf Urine RBC (Auto) (0-4) /hpf U Hyaline Cast (Auto) (0-5) /lpf U Epithel Cells (Auto) (0-5) /lpf Urine Bacteria (Auto) (Negative) Digoxin (0.8-2.0) ng/ml COVID-19 Eval Order SARS-CoV-2, RNA, NAAT (NEGATIVE) 06/18/20 06/18/20 06/18/20 Range/Units 21:36 21:36 22:25 WBC (4.8-10.8) K/uL RBC (4.7-6.1) M/uL Hgb (14.0-18.0) g/dL Hct (42-52) % MCV (80-100) fL MCH (25-34) pg MCHC (32-36) g/dL RDW Std Deviation (36.4-46.3) fL RDW Coeff of Baldo (11.5-14.5) % Plt Count (130-400) K/uL MPV (7.4-10.4) fL Immature Gran % (Auto) % Neut % (Auto) % Lymph % (Auto) % Stanton % (Auto) % Eos % (Auto) % Baso % (Auto) % Neut # (Auto) (1.4-6.5) K/uL Lymph # (Auto) (1.2-3.4) K/uL Stanton # (Auto) (0.11-0.59) K/uL Eos # (Auto) (0-0.5) K/uL Baso # (Auto) (0-0.2) K/uL Immature Gran # (Auto) (0.00-0.02) K/uL PT (9.0-12.0) Seconds INR (0.9-1.1) APTT (21.0-31.0) Seconds PTT Ratio VBG pH 7.35 L (7.36-7.41) VBG pCO2 56 H (38-50) mmHg VBG pO2 31 mmHg VBG HCO3 30 mmol/L VBG O2 Saturation < 60.0 % VBG Base Excess 3.1 mEq/L Barometric Pressure 730.0 mm/Hg Sodium (136-145) mmol/L Potassium (3.5-5.1) mmol/L Chloride (98-107) mmol/L Carbon Dioxide (21-32) mmol/L Anion Gap (3-11) BUN (7-18) mg/dl Creatinine (0.6-1.4) mg/dl Est Cr Clr Drug Dosing ml/min Est GFR ( Amer) Est GFR (Non-Af Amer) BUN/Creatinine Ratio (10-20) Glucose (70-99) mg/dl POC Glucose (70-99) mg/dl Osmolality (280-300) mOsm/kg Lactate 2.7 H* (0.4-2.0) mmol/L Calcium (8.5-10.1) mg/dl Phosphorus (2.5-4.9) mg/dl Magnesium (1.8-2.4) mg/dl Total Bilirubin (0.2-1) mg/dl Direct Bilirubin (0-0.2) mg/dl AST (15-37) U/L ALT (12-78) U/L Alkaline Phosphatase (45-117) U/L Troponin I (0-0.045) ng/ml Total Protein (6.4-8.2) gm/dl Albumin (3.4-5.0) gm/dl Globulin (2.5-4.0) gm/dl Albumin/Globulin Ratio (0.9-2) Lipase (73-393) U/L Beta-Hydroxybutyric Acd (0.2-2.81) mg/dl Procalcitonin (0-0.5) ng/ml TSH (0.300-4.500) uIu/ml Urine Color Urine Appearance (Clear) Urine pH (4.5-7.5) Ur Specific [place] (1.000-1.030) Urine Protein (Negative) Urine Glucose (UA) (Negative) Urine Ketones (Negative) Urine Blood (Negative) Urine Nitrite (Negative) Urine Bilirubin (Negative) Urine Urobilinogen (Negative) Ur Leukocyte Esterase (Negative) Urine WBC (Auto) (0-5) /hpf Urine RBC (Auto) (0-4) /hpf U Hyaline Cast (Auto) (0-5) /lpf U Epithel Cells (Auto) (0-5) /lpf Urine Bacteria (Auto) (Negative) Digoxin (0.8-2.0) ng/ml COVID-19 [facility] SARS-[facility], RNA, NAAT (NEGATIVE) 06/18/20 06/18/20 06/18/20 Range/Units 22:25 22:34 23:36 WBC (4.8-10.8) K/uL RBC (4.7-6.1) M/uL Hgb (14.0-18.0) g/dL Hct (42-52) % MCV (80-100) fL MCH (25-34) pg MCHC (32-36) g/dL RDW Std Deviation (36.4-46.3) fL RDW Coeff of Baldo (11.5-14.5) % Plt Count (130-400) K/uL MPV (7.4-10.4) fL Immature Gran % (Auto) % Neut % (Auto) % Lymph % (Auto) % [place] % (Auto) % Eos % (Auto) % Baso % (Auto) % Neut # (Auto) (1.4-6.5) K/uL Lymph # (Auto) (1.2-3.4) K/uL [place] # (Auto) (0.11-0.59) K/uL Eos # (Auto) (0-0.5) K/uL Baso # (Auto) (0-0.2) K/uL Immature Gran # (Auto) (0.00-0.02) K/uL PT (9.0-12.0) Seconds INR (0.9-1.1) APTT (21.0-31.0) Seconds PTT Ratio VBG pH (7.36-7.41) VBG pCO2 (38-50) mmHg VBG pO2 mmHg VBG HCO3 mmol/L VBG O2 Saturation % VBG Base Excess mEq/L Barometric Pressure mm/Hg Sodium (136-145) mmol/L Potassium (3.5-5.1) mmol/L Chloride (98-107) mmol/L Carbon Dioxide (21-32) mmol/L Anion Gap (3-11) BUN (7-18) mg/dl Creatinine (0.6-1.4) mg/dl Est Cr Clr Drug Dosing ml/min Est GFR ( Amer) Est GFR (Non-Af Amer) BUN/Creatinine Ratio (10-20) Glucose (70-99) mg/dl POC Glucose (70-99) mg/dl Osmolality (280-300) mOsm/kg Lactate 2.6 H* (0.4-2.0) mmol/L Calcium (8.5-10.1) mg/dl Phosphorus (2.5-4.9) mg/dl Magnesium (1.8-2.4) mg/dl Total Bilirubin (0.2-1) mg/dl Direct Bilirubin (0-0.2) mg/dl AST (15-37) U/L ALT (12-78) U/L Alkaline Phosphatase (45-117) U/L Troponin I (0-0.045) ng/ml Total Protein (6.4-8.2) gm/dl Albumin (3.4-5.0) gm/dl Globulin (2.5-4.0) gm/dl Albumin/Globulin Ratio (0.9-2) Lipase (73-393) U/L Beta-Hydroxybutyric Acd (0.2-2.81) mg/dl Procalcitonin (0-0.5) ng/ml TSH (0.300-4.500) uIu/ml Urine Color Yellow Urine Appearance Cloudy A (Clear) Urine pH 5.0 (4.5-7.5) Ur Specific [place] 1.025 (1.000-1.030) Urine Protein Negative (Negative) Urine Glucose (UA) 3+ H (Negative) Urine Ketones Negative (Negative) Urine Blood Negative (Negative) Urine Nitrite Negative (Negative) Urine Bilirubin Negative (Negative) Urine Urobilinogen Negative (Negative) Ur Leukocyte Esterase 1+ H (Negative) Urine WBC (Auto) >30 H (0-5) /hpf Urine RBC (Auto) 0-4 (0-4) /hpf U Hyaline Cast (Auto) 0 (0-5) /lpf U Epithel Cells (Auto) 5-10 H (0-5) /lpf Urine Bacteria (Auto) 2+ H (Negative) Digoxin (0.8-2.0) ng/ml COVID-19 Eval Order SARS-CoV-2, RNA, NAAT NEGATIVE (NEGATIVE) 06/19/20 06/19/20 06/19/20 Range/Units 00:14 01:10 01:36 WBC (4.8-10.8) K/uL RBC (4.7-6.1) M/uL Hgb (14.0-18.0) g/dL Hct (42-52) % MCV (80-100) fL MCH (25-34) pg MCHC (32-36) g/dL RDW Std Deviation (36.4-46.3) fL RDW Coeff of Baldo (11.5-14.5) % Plt Count (130-400) K/uL MPV (7.4-10.4) fL Immature Gran % (Auto) % Neut % (Auto) % Lymph % (Auto) % Stanton % (Auto) % Eos % (Auto) % Baso % (Auto) % Neut # (Auto) (1.4-6.5) K/uL Lymph # (Auto) (1.2-3.4) K/uL Stanton # (Auto) (0.11-0.59) K/uL Eos # (Auto) (0-0.5) K/uL Baso # (Auto) (0-0.2) K/uL Immature Gran # (Auto) (0.00-0.02) K/uL PT (9.0-12.0) Seconds INR (0.9-1.1) APTT (21.0-31.0) Seconds PTT Ratio VBG pH (7.36-7.41) VBG pCO2 (38-50) mmHg VBG pO2 mmHg VBG HCO3 mmol/L VBG O2 Saturation % VBG Base Excess mEq/L Barometric Pressure mm/Hg Sodium (136-145) mmol/L Potassium (3.5-5.1) mmol/L Chloride (98-107) mmol/L Carbon Dioxide (21-32) mmol/L Anion Gap (3-11) BUN (7-18) mg/dl Creatinine (0.6-1.4) mg/dl Est Cr Clr Drug Dosing ml/min Est GFR ( Amer) Est GFR (Non-Af Amer) BUN/Creatinine Ratio (10-20) Glucose (70-99) mg/dl POC Glucose 147 H 97 (70-99) mg/dl Osmolality (280-300) mOsm/kg Lactate 1.6 (0.4-2.0) mmol/L Calcium (8.5-10.1) mg/dl Phosphorus (2.5-4.9) mg/dl Magnesium (1.8-2.4) mg/dl Total Bilirubin (0.2-1) mg/dl Direct Bilirubin (0-0.2) mg/dl AST (15-37) U/L ALT (12-78) U/L Alkaline Phosphatase (45-117) U/L Troponin I (0-0.045) ng/ml Total Protein (6.4-8.2) gm/dl Albumin (3.4-5.0) gm/dl Globulin (2.5-4.0) gm/dl Albumin/Globulin Ratio (0.9-2) Lipase (73-393) U/L Beta-Hydroxybutyric Acd (0.2-2.81) mg/dl Procalcitonin (0-0.5) ng/ml TSH (0.300-4.500) uIu/ml Urine Color Urine Appearance (Clear) Urine pH (4.5-7.5) Ur Specific [place] (1.000-1.030) Urine Protein (Negative) Urine Glucose (UA) (Negative) Urine Ketones (Negative) Urine Blood (Negative) Urine Nitrite (Negative) Urine Bilirubin (Negative) Urine Urobilinogen (Negative) Ur Leukocyte Esterase (Negative) Urine WBC (Auto) (0-5) /hpf Urine RBC (Auto) (0-4) /hpf U Hyaline Cast (Auto) (0-5) /lpf U Epithel Cells (Auto) (0-5) /lpf Urine Bacteria (Auto) (Negative) Digoxin (0.8-2.0) ng/ml COVID-19 Eval Order SARS-CoV-2, RNA, NAAT (NEGATIVE) 06/19/20 06/19/20 06/19/20 Range/Units 01:36 01:42 02:13 WBC (4.8-10.8) K/uL RBC (4.7-6.1) M/uL Hgb (14.0-18.0) g/dL Hct (42-52) % MCV (80-100) fL MCH (25-34) pg MCHC (32-36) g/dL RDW Std Deviation (36.4-46.3) fL RDW Coeff of Baldo (11.5-14.5) % Plt Count (130-400) K/uL MPV (7.4-10.4) fL Immature Gran % (Auto) % Neut % (Auto) % Lymph % (Auto) % [place] % (Auto) % Eos % (Auto) % Baso % (Auto) % Neut # (Auto) (1.4-6.5) K/uL Lymph # (Auto) (1.2-3.4) K/uL [place] # (Auto) (0.11-0.59) K/uL Eos # (Auto) (0-0.5) K/uL Baso # (Auto) (0-0.2) K/uL Immature Gran # (Auto) (0.00-0.02) K/uL PT (9.0-12.0) Seconds INR (0.9-1.1) APTT (21.0-31.0) Seconds PTT Ratio VBG pH (7.36-7.41) VBG pCO2 (38-50) mmHg VBG pO2 mmHg VBG HCO3 mmol/L VBG O2 Saturation % VBG Base Excess mEq/L Barometric Pressure mm/Hg Sodium (136-145) mmol/L Potassium (3.5-5.1) mmol/L Chloride (98-107) mmol/L Carbon Dioxide (21-32) mmol/L Anion Gap (3-11) BUN (7-18) mg/dl Creatinine (0.6-1.4) mg/dl Est Cr Clr Drug Dosing ml/min Est GFR ( Amer) Est GFR (Non-Af Amer) BUN/Creatinine Ratio (10-20) Glucose (70-99) mg/dl POC Glucose 105 H 72 (70-99) mg/dl Osmolality (280-300) mOsm/kg Lactate (0.4-2.0) mmol/L Calcium (8.5-10.1) mg/dl Phosphorus (2.5-4.9) mg/dl Magnesium (1.8-2.4) mg/dl Total Bilirubin (0.2-1) mg/dl Direct Bilirubin (0-0.2) mg/dl AST (15-37) U/L ALT (12-78) U/L Alkaline Phosphatase (45-117) U/L Troponin I (0-0.045) ng/ml Total Protein (6.4-8.2) gm/dl Albumin (3.4-5.0) gm/dl Globulin (2.5-4.0) gm/dl Albumin/Globulin Ratio (0.9-2) Lipase (73-393) U/L Beta-Hydroxybutyric Acd (0.2-2.81) mg/dl Procalcitonin (0-0.5) ng/ml TSH (0.300-4.500) uIu/ml Urine Color Urine Appearance (Clear) Urine pH (4.5-7.5) Ur Specific [place] (1.000-1.030) Urine Protein (Negative) Urine Glucose (UA) (Negative) Urine Ketones (Negative) Urine Blood (Negative) Urine Nitrite (Negative) Urine Bilirubin (Negative) Urine Urobilinogen (Negative) Ur Leukocyte Esterase (Negative) Urine WBC (Auto) (0-5) /hpf Urine RBC (Auto) (0-4) /hpf U Hyaline Cast (Auto) (0-5) /lpf U Epithel Cells (Auto) (0-5) /lpf Urine Bacteria (Auto) (Negative) Digoxin 0.6 L (0.8-2.0) ng/ml COVID-19 Eval Order SARS-CoV-2, RNA, NAAT (NEGATIVE) Administered Medications Heparin Sodium/Dextrose (Heparin Sodium/Dextrose) 25,000 units in 500 mls @ 36 mls/hr IV .[id number] [facility]; Protocol Stop: 07/19/20 02:29 Last Admin: 06/19/20 03:01 Dose: 1,800 units/hr, 36 mls/hr Documented by: [id number] Cosigned by: [id number] Discontinued Medications Dextrose (Dextrose 50% 50 Ml Syringe) Confirm Administered Dose 50 ml IV .STK- MED ONE Stop: 06/19/20 01:20 Last Admin: 06/19/20 01:24 Dose: 25 ml Documented by: [id number] Diphenhydramine HCl (Diphenhydramine 50 Mg/Ml Vial) 25 mg IV NOW STA Stop: 06/18/20 20:57 Last Admin: 06/18/20 22:20 Dose: 25 mg Documented by: [id number] Erythromycin (Erythromycin Op Oint 5 Mg/Gm 3.5 Gm Tube) 1 appln OPL NOW STA Stop: 06/19/20 02:40 Last Admin: 06/19/20 03:02 Dose: 1 appln Documented by: [id number] Heparin Sodium/Dextrose (Heparin Iv Standard *No* Bolus) 1 ea IV Q15M [facility]; Protocol Stop: 07/19/20 02:18 Last Admin: 06/19/20 04:12 Dose: Not Given Documented by: [id number] Admin: 06/19/20 04:12 Dose: Not Given Documented by: [id number] Admin: 06/19/20 04:12 Dose: Not Given Documented by: [id number] Heparin Sodium/Dextrose (Heparin 44725 Unit/500 Ml D5w) Confirm Administered Dose 25,000 units IV .STK-MED ONE Stop: 06/19/20 02:51 Last Admin: 06/19/20 03:05 Dose: Not Given Documented by: [id number] Acetaminophen (Ofirmev) 1,000 mg in 100 mls @ 400 mls/hr IV NOW STA Stop: 06/18/20 21:10 Last Infusion: 06/18/20 22:38 Dose: 0 mls/hr Documented by: [id number] Admin: 06/18/20 22:23 Dose: 400 mls/hr Documented by: [id number] Prochlorperazine (Compazine) 2 mls @ 1 mls/min IV ONE ONE Stop: 06/18/20 20:57 Last Admin: 06/18/20 22:22 Dose: 1 mls/min Documented by: [id number] Sodium Chloride (Nss 1000ml) 1,000 mls @ 999 mls/hr IV .Q1H1M ONE Stop: 06/18/20 22:01 Last Infusion: 06/18/20 23:21 Dose: 0 mls/hr Documented by: [id number] Admin: 06/18/20 22:20 Dose: 999 mls/hr Documented by: [id number] Insulin Human Regular 250 (units/ Sodium Chloride) 250 mls @ 0 mls/hr IV .Q0M [facility]; Protocol Stop: 07/18/20 22:14 Last Titration: 06/19/20 04:13 Dose: 0 units/hr, 0 mls/hr Documented by: [id number] Cosigned by: [id number] Titration: 06/19/20 01:21 Dose: 0 units/hr, 0 mls/hr Documented by: [id number] Cosigned by: [id number] Titration: 06/19/20 00:18 Dose: 4.3 units/hr, 4.3 mls/hr Documented by: [id number] Cosigned by: [id number] Admin: 06/18/20 23:11 Dose: 5.4 units/hr, 5.4 mls/hr Documented by: [id number] Cosigned by: [id number] Potassium Chloride/Sodium Chloride (Normal Saline W/20 Meq Kcl) 20 meq in 1,000 mls @ 250 mls/hr IV .Q4H OFE Stop: 07/18/20 22:14 Last Infusion: 06/19/20 04:13 Dose: 0 mls/hr Documented by: [id number] Admin: 06/19/20 03:04 Dose: 250 mls/hr Documented by: [id number] Infusion: 06/19/20 03:04 Dose: 250 mls/hr Documented by: [id number] Admin: 06/19/20 00:43 Dose: 250 mls/hr Documented by: [id number] Cefepime HCl (Maxipime) 2,000 mg in 20 mls @ 5 mls/min IV NOW STA; Protocol Stop: 06/19/20 02:39 Last Admin: 06/19/20 02:59 Dose: 5 mls/min Documented by: [id number] Insulin Human Regular (Novolin-R Bolus From Bag) 6 units IV ONE ONE Stop: 06/18/20 22:16 Last Admin: 06/18/20 23:11 Dose: 6 units Documented by: [id number] Cosigned by: [id number] Miscellaneous (Dka Goal Range 150-250 Mg/Dl) 1 ea N/A ONE ONE Stop: 06/18/20 22:04 Last Admin: 06/19/20 03:04 Dose: 1 ea Documented by: [id number] Miscellaneous Information (Pharmacy Glycemic Mgmt Consult) 1 ea N/A NOW STA Stop: 06/19/20 02:48 Last Admin: 06/19/20 03:04 Dose: 1 ea Documented by: [id number] Warfarin Sodium (Warfarin Sod 5 Mg Tab) 5 mg PO NOW STA Stop: 06/19/20 02:27 Last Admin: 06/19/20 02:51 Dose: 5 mg Documented by: [id number] Discharge Plan Visit Data Chief Complaint: Hyperglycemia Stated Complaint: HYPERGLYCEMIA ED Provider: Jonathon Sands Discharge Problem: Uncontrolled diabetes mellitus, Dehydration, Headache, CKD (chronic kidney di sease) stage 3, GFR 30-59 ml/min, Chronic diastolic CHF (congestive heart failure) Patient Disposition: Admitted As Inpatient Discharge Instructions Interventions: ED Discharge Assessment Last Done: 06/19/20 03:33 Discharge Problem: Uncontrolled diabetes mellitus Qualifiers: Diabetes mellitus type: type 2 Glycemic state: with hyperglycemia Qualified Co de(s): E11.65 - Type 2 diabetes mellitus with hyperglycemia Headache Qualifiers: Headache type: tension-type Headache chronicity pattern: acute headache Intractability: not intractable Qualified Code(s): G44.209 - Tension-type headache, unspecified, not intractable CKD (chronic kidney disease) stage 3, GFR 30-59 ml/min Qualifiers: Chronic kidney disease stage 3 subtype: unspecified whether 3a or 3b Qualified Code(s): N18.30 - Chronic kidney disease, stage 3 unspecified
[2020-06-18] MEDS ORDERED: INSULIN REGULAR 250 UNITS in SODIUM CHLORIDE 0.9% 247.5 ML IV SCH (22:15)
[2020-06-18] MEDS ORDERED: NovoLIN-R BOLUS FROM BAG IV ONE (22:15)
[2020-06-18 22:20] LABS: Oxygen Saturation VBG < 60.0 %
[2020-06-19 00:25] LABS: Appearance Urine Cloudy (Clear); Bacteria Urine Automated 2+ (Negative); Bilirubin Urine Negative (Negative); Blood Urine Negative (Negative); Color Urine Yellow; Glucose Urine UA 3+ (Negative); Ketones Urine Negative (Negative); Leukocyte Esterase Urine 1+ (Negative); Nitrite Urine Negative (Negative); Protein Urine Negative (Negative); RBC Urine Automated 0-4 /hpf (0-4); Specific Gravity Urine 1.025 (1.000-1.030); Urobilinogen Urine Negative (Negative); WBC Urine Automated >30 /hpf (0-5)
[2020-06-19] MEDS: NSS + 20MEQ KCL 20 MEQ/1,000 ML BAG IV SCH ×2 (00:43→03:04)
[2020-06-19 01:02] LABS: Cast Urine Automated 0 /lpf (0-5)
[2020-06-19] MEDS ORDERED: DEXTROSE 50% 50 ML SYRINGE IV ONE (01:19)
[2020-06-19] MEDS ORDERED: WARFARIN SOD 5 MG TAB PO STA (02:26)
--- NOTE | 2020-06-19 02:35 | History & Physical Report ---
Date of Service June 19, 2020 Assessment & Plan (1) Hyperglycemic crisis in diabetes mellitus: Secondary to dietary indiscretion as per daughter hx DM2 on insulin pump Reasonable control as of recent outpatient hemoglobin A1c of 7.14 January 2020 Precipitous drop after IV insulin started at the ER chronic diastolic heart failure (EF 55 to 60%, TTE 2019), patient on the dry side Recurrent falls ? Secondary to orthostasis given low BP, relatively high beta- flo dose given baseline cardiac rate of 60s rule out pacemaker dysfunction hx SSS sp PPM/PE on anticoagulation paced rhythm, INR subtherapeutic ? Medication compliance Complicated UTI, no sepsis COPD/ILD as per records, pulmonary status at baseline hypothyroidism, euthyroid as of today's TSH CRI, creatinine close to baseline chronic anemia, hemoglobin at baseline history of MRSA as per records Functional disability Bacterial conjunctivitis left Medical telemetry Hold IV insulin for now Accu-Cheks every 2 hours for now until hypoglycemia resolved Pharmacy glycemic control consult Update hemoglobin A1c IVF, hold home diuretics for now until patient euvolemic decrease maintenance beta-flo dose, pacemaker interrogation Follow urine cultures, Cefepime Topical erythromycin for bacterial conjunctivitis left PT OT eval Social service RE discharge planning DVT prophylaxis. IV heparin-Coumadin bridge therapy INR goal between 2 and 3 Full code Patient's daughter requesting updates from providers. Aundrea Bing Andujar, contact #[phone]. Text document was generated using PayTouch voice recognition software. It may contain grammatical or spelling errors. Kindly contact undersigned for clarification of any documentation item in question. History of Present Illness Chief Complaint: High sugars Primary Care Provider: Scotty Jara DO History obtained from patient, family, and records. Patient is a fair historian. Medical history is significant for chronic diastolic heart failure (EF 55 to 60%, TTE 2019), SSS sp PPM/PE on anticoagulation, COPD/ILD as per records, SALAS on CPAP, DM2 on insulin pump, hypothyroidism, CRI (baseline creatinine 1.5 to 2.2), chronic anemia (baseline hemoglobin 13), history of MRSA as per records. Last confinement February 2020 for chest pain concerning for unstable angina. Patient family worried the last few weeks about progressive inability of patient to care for himself at home. Recurrent falls as per family. Missing medications. Noncompliance with diabetic diet as per daughter. Patient seen at [facility] last week for diabetes control. Glycemic control noted to be unstable as per documentation. Patient insulin pump not functioning correctly due to broken O-ring related to Medtr[employer] pump being recalled. Patient advised to call [employer] for new pump. BSGs noted to be high as 400-500s at home the last few days. Patient new insulin pump utilized yesterday. BSGs still uncontrolled despite boluses. Patient not feeling well, dropping objects. Left eye discharge. No fever, no chills, no headaches, no syncope. Patient denies chest pain, S OB, cough. Denies abdominal pain, diarrhea. Patient complaining of dysuria symptoms. Patient family urged patient to go to ER for evaluation. Patient hesitant to proceed to ER fearing SNF placement once admitted as per daughter. IV insulin initiated for hyperglycemia in the 600s. Patient insulin pump turned off after IV insulin protocol initiated. IV insulin subsequently stopped with BSG 140s 4 hours after IV insulin initiated. MEDICAL HISTORY: As above. SURGERIES: Knee surgery, hernia repair, urologic procedures, cataract surgery, entropion surgery, Carpal tunnel surgery, cholecystectomy, lung surgery FAMILY HISTORY: Heart disease. PERSONAL AND SOCIAL HISTORY: Nonsmoker. No chronic intake of alcoholic beverages. 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 Allergies Allergy/AdvReac Type Severity Reaction Status Date / Time No Known Drug Allergies Allergy Unknown Verified 06/19/20 01:43 Home Medications Medication Instructions Recorded Confirmed Type digoxin 0.125 mg PO QPM #0 07/13/16 06/19/20 History spironolactone 25 mg PO QAM #0 07/13/16 06/19/20 History aspirin 81 mg tablet,delayed 81 mg PO QAM 05/11/18 06/19/20 History release metolazone 2.5 mg tablet 2.5 mg PO WE tab 05/11/18 06/19/20 History levothyroxine 50 mcg PO QAM 06/24/18 06/19/20 History duloxetine 60 mg capsule,delayed 60 mg PO QAM 08/31/18 06/19/20 History release magnesium oxide 400 mg PO QAM 04/26/19 06/19/20 History sennosides [senna] 8.6 mg PO BID PRN 04/26/19 06/19/20 History cholecalciferol (vitamin D3) 50 2,000 units PO QAM 05/13/19 06/19/20 History mcg (2,000 unit) capsule allopurinol 300 mg tablet 300 mg PO QAM 05/25/19 06/19/20 History levothyroxine 200 mcg tablet 200 mcg PO QAM #0 tab 05/25/19 06/19/20 History omeprazole 20 mg capsule,delayed 20 mg PO QAM 05/25/19 06/19/20 History release tramadol 50 mg PO BID PRN 05/30/19 06/19/20 History potassium chloride [Klor-Con M20] 20 meq PO BIDM 07/12/19 06/19/20 History furosemide 80 mg tablet 80 mg PO BID #0 11/23/19 06/19/20 History acetaminophen 500 mg capsule 1,000 mg PO Q6H PRN 12/14/19 06/19/20 History albuterol sulfate 90 mcg/actuation 2 puffs INH QID PRN gm 12/14/19 06/19/20 History aerosol inhaler atorvastatin 20 mg tablet 10 mg PO HS 12/14/19 06/19/20 History gabapentin 300 mg capsule 300 mg PO TID 12/14/19 06/19/20 History meclizine 12.5 mg tablet 12.5 mg PO TID PRN 12/14/19 06/19/20 History triamcinolone acetonide 0.1 % 1 applic TOPICAL BID 12/14/19 06/19/20 History topical cream [facility] 1 cap PO BID 02/13/20 06/19/20 History bupropion HCl 150 mg PO QAM 02/13/20 06/19/20 History insulin regular hum U-500 conc 0 - 160 unit CONTINUOUS 02/13/20 06/19/20 History SUBCUTANEOUS INFUSION DAILY metoprolol succinate 150 mg PO BID 02/13/20 06/19/20 History miconazole nitrate [Antifungal 1 applic TOPICAL BID PRN 02/13/20 06/19/20 History Cream (miconazole)] warfarin 2 mg PO MURILLO 02/13/20 06/19/20 History warfarin 4 mg PO MOTUWETHFRSA 02/13/20 06/19/20 History colchicine 0.6 mg capsule 0.6 mg PO .qod #0 cap 03/02/20 06/19/20 History oxybutynin chloride 10 mg 10 mg PO DAILY 03/29/20 06/19/20 History tablet,extended release 24 hr diclofenac sodium 4 g TOPICAL BID 06/19/20 06/19/20 History multivitamin with minerals 1 tab PO DAILY 06/19/20 06/19/20 History [Multiple Vitamin-Minerals] nitroglycerin 0.4 mg SUBLINGUAL UD PRN 06/19/20 06/19/20 History Past Med/Surg History Medical History Arthritis Atrial fibrillation paroxysmal Atrial flutter Bifascicular block CAD (coronary artery disease) Cardiomyopathy Chronic anticoagulation Chronic diastolic CHF (congestive heart failure) Chronic venous insufficiency CKD (chronic kidney disease) stage 3, GFR 30-59 ml/min Claustrophobia Closed fracture of thyroid cartilage COPD, moderate Depression Diabetes mellitus, type 2 insulin pump Fatty liver Gout Hyperlipidemia Hypertension Hypothyroidism Iatrogenic pulmonary embolism Interstitial lung disease Morbid obesity MRSA infection Nephrolithiasis Nocturnal hypoxemia SALAS (obstructive sleep apnea) Osteoarthritis Paroxysmal atrial fibrillation Prolonged QT interval Pulmonary embolism B/L- 5+ years ago Sarcoidosis possible- evaluated by pulmonary; felt no active sarcoidosis and would not merit steroid therapy given weight/diabetic state. 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 "prior EF of 25% while in aflutter, subsequently normal in NSR" Surgical History H/O cardiac radiofrequency ablation H/O prior ablation treatment History of arthroscopic knee surgery History of bronchoscopy History of cataract surgery local anesthesia only per pt History of cholecystectomy History of extraction of renal calculus History of lung surgery thoracoscopy, right VATS, wedge resection History of umbilical hernia repair Hx of carpal tunnel repair Pacemaker Implanted 02/2017 secondary to Sinus node dysfunction/tachy sherry syndrome/3rd degree AVB Medtr[employer] Pacer check 12/24/17 Status post incision and drainage Family History Mother Cancer Social History Smoking Status: Unknown if ever smoked Second Hand Exposure: No; Hx Alcohol Use: No Hx Substance Use: No Preferred Language: Macedonian Communication Ability: Effective Visual Impairment: No Limitations Hearing Ability: Normal Signal Operator Required: No Beliefs That Will Affect Care: None marital status: Current Living Situation: Alone Current Living Situation Comment: [facility] current occupational status: retired How many Children do You have: 2 Other Information That Helps Us Care for You: No Feels Safe at Home: Yes Safety Concerns: Feels Safe At This Time Diet Comment: FLUID RESTRICTION during the past year weight has: other Assistive Devices: None and Walker Review of Systems Review of Systems: As per HPI, all 10 systems reviewed, all other ROS negative Physical Exam Physical Exam: GENERAL: Comfortable, morbidly obese, laconic, no respiratory distress SKIN: Pallor , warm HEENT: Pale palpebral conjunctivae, no ptosis, yellow discharge on left lower eyelid, dry buccal mucosa NECK : Supple, short neck, no tenderness CHEST : Decreased breath sounds , no tenderness HEART : RRR, no obvious murmurs ABDOMEN: distention, nontender EXTREMITIES : Bilateral LE swelling, no LE tenderness, no other conspicuous deformities noted NEUROLOGIC : Coherent, no facial asymmetry, mild hearing impairment, no other gross focality Results & Data Results & Data ([facility]) Vital Signs (Past 12 Hours) Vital Signs Temp Pulse Resp BP Pulse Ox 06/19/20 02:01 61 19 113/50 L 06/19/20 01:39 66 20 115/62 06/19/20 01:31 68 19 98/56 L 06/19/20 01:00 60 21 135/59 L 06/19/20 00:45 61 21 109/47 L 06/19/20 00:21 66 14 94 06/18/20 23:30 63 18 130/83 06/18/20 23:01 60 24 129/75 06/18/20 22:31 61 21 110/63 06/18/20 22:00 63 24 138/80 06/18/20 21:31 60 17 06/18/20 21:02 60 17 06/18/20 21:01 60 21 120/66 06/18/20 20:30 62 23 06/18/20 20:03 36.6 C 62 18 126/67 95 Laboratory Results Laboratory Results WBC 4.93 K/uL (4.8-10.8) 06/18/20 20:00 RBC 4.40 M/uL (4.7-6.1) L 06/18/20 20:00 Hgb 13.0 g/dL (14.0-18.0) L 06/18/20 20:00 Hct 37.9 % (42-52) L 06/18/20 20:00 MCV 86.1 fL (80-100) 06/18/20 20:00 MCH 29.5 pg (25-34) 06/18/20 20:00 MCHC 34.3 g/dL (32-36) 06/18/20 20:00 RDW Std Deviation 42.5 fL (36.4-46.3) 06/18/20 20:00 RDW Coeff of Baldo 13.5 % (11.5-14.5) 06/18/20 20:00 Plt Count 133 K/uL (130-400) 06/18/20 20:00 MPV 11.9 fL (7.4-10.4) H 06/18/20 20:00 Immature Gran % (Auto) 0.2 % 06/18/20 20:00 Neut % (Auto) 59.5 % 06/18/20 20:00 Lymph % (Auto) 27.8 % 06/18/20 20:00 [place] % (Auto) 9.7 % 06/18/20 20:00 Eos % (Auto) 2.4 % 06/18/20 20:00 Baso % (Auto) 0.4 % 06/18/20 20:00 Neut # (Auto) 2.93 K/uL (1.4-6.5) 06/18/20 20:00 Lymph # (Auto) 1.37 K/uL (1.2-3.4) 06/18/20 20:00 [place] # (Auto) 0.48 K/uL (0.11-0.59) 06/18/20 20:00 Eos # (Auto) 0.12 K/uL (0-0.5) 06/18/20 20:00 Baso # (Auto) 0.02 K/uL (0-0.2) 06/18/20 20:00 Immature Gran # (Auto) 0.01 K/uL (0.00-0.02) 06/18/20 20:00 PT 13.4 Seconds (9.0-12.0) H 06/18/20 20:00 INR 1.3 (0.9-1.1) H 06/18/20 20:00 APTT 34.6 Seconds (21.0-31.0) H 06/18/20 20:00 PTT Ratio 1.2 06/18/20 20:00 VBG pH 7.35 (7.36-7.41) L 06/18/20 21:36 VBG pCO2 56 mmHg (38-50) H 06/18/20 21:36 VBG pO2 31 mmHg 06/18/20 21:36 VBG HCO3 30 mmol/L 06/18/20 21:36 VBG O2 Saturation < 60.0 % 06/18/20 21:36 VBG Base Excess 3.1 mEq/L 06/18/20 21:36 Barometric Pressure 730.0 mm/Hg 06/18/20 21:36 Sodium 124 mmol/L (136-145) L 06/18/20 20:00 Potassium 4.7 mmol/L (3.5-5.1) 06/18/20 20:00 Chloride 84 mmol/L (98-107) L 06/18/20 20:00 Carbon Dioxide 30 mmol/L (21-32) 06/18/20 20:00 Anion Gap 10.0 (3-11) 06/18/20 20:00 BUN 69 mg/dl (7-18) H 06/18/20 20:00 Creatinine 2.06 mg/dl (0.6-1.4) H 06/18/20 20:00 Est Cr Clr Drug Dosing 48.6 ml/min 06/18/20 20:00 Est GFR ( Amer) 37.2 06/18/20 20:00 Est GFR (Non-Af Amer) 32.1 06/18/20 20:00 BUN/Creatinine Ratio 33.4 (10-20) H 06/18/20 20:00 Glucose 611 mg/dl (70-99) H* 06/18/20 20:00 POC Glucose 72 mg/dl (70-99) 06/19/20 02:13 Osmolality 317 mOsm/kg (280-300) H 06/18/20 20:00 Lactate 1.6 mmol/L (0.4-2.0) 06/19/20 01:36 Calcium 10.0 mg/dl (8.5-10.1) 06/18/20 20:00 Phosphorus 2.5 mg/dl (2.5-4.9) 06/18/20 20:00 Magnesium 2.7 mg/dl (1.8-2.4) H 06/18/20 20:00 Total Bilirubin 1.3 mg/dl (0.2-1) H 06/18/20 20:00 Direct Bilirubin 0.3 mg/dl (0-0.2) H 06/18/20 20:00 AST 17 U/L (15-37) 06/18/20 20:00 ALT 22 U/L (12-78) 06/18/20 20:00 Alkaline Phosphatase 131 U/L (45-117) H 06/18/20 20:00 Troponin I < 0.015 ng/ml (0-0.045) 06/18/20 20:00 Total Protein 8.0 gm/dl (6.4-8.2) 06/18/20 20:00 Albumin 3.3 gm/dl (3.4-5.0) L 06/18/20 20:00 Globulin 4.7 gm/dl (2.5-4.0) H 06/18/20 20:00 Albumin/Globulin Ratio 0.7 (0.9-2) L 06/18/20 20:00 Lipase 113 U/L (73-393) 06/18/20 20:00 Beta-Hydroxybutyric Acd 2.33 mg/dl (0.2-2.81) 06/18/20 20:00 Procalcitonin 0.15 ng/ml (0-0.5) 06/18/20 20:00 TSH 0.512 uIu/ml (0.300-4.500) 06/18/20 20:00 Urine Color Yellow 06/18/20:34 Urine Appearance Cloudy (Clear) A 06/18/20 22:34 Urine pH 5.0 (4.5-7.5) 06/18/20 22:34 Ur Specific [place] 1.025 (1.000-1.030) 06/18/20 22:34 Urine Protein Negative (Negative) 06/18/20 22:34 Urine Glucose (UA) 3+ (Negative) H 06/18/20 22:34 Urine Ketones Negative (Negative) 06/18/20 22:34 Urine Blood Negative (Negative) 06/18/20 22:34 Urine Nitrite Negative (Negative) 06/18/20 22:34 Urine Bilirubin Negative (Negative) 06/18/20 22:34 Urine Urobilinogen Negative (Negative) 06/18/20 22:34 Ur Leukocyte Esterase 1+ (Negative) H 06/18/20 22:34 Urine WBC (Auto) >30 /hpf (0-5) H 06/18/20 22:34 Urine RBC (Auto) 0-4 /hpf (0-4) 06/18/20 22:34 U Hyaline Cast (Auto) 0 /lpf (0-5) 06/18/20 22:34 U Epithel Cells (Auto) 5-10 /lpf (0-5) H 06/18/20 22:34 Urine Bacteria (Auto) 2+ (Negative) H 06/18/20 22:34 Digoxin 0.6 ng/ml (0.8-2.0) L 06/19/20 01:36 [facility] 06/18/20 22:25 SARS-CoV-2, RNA, NAAT NEGATIVE (NEGATIVE) 06/18/20 22:[address] head initial read: No evidence of acute large vessel infarct or hemorrhage. Chest x-ray as per my interpretation: Atelectasis minimal congestion EKG as per my interpretation : Rate 60, paced rhythm
[2020-06-19] MEDS ORDERED: CEFEPIME 2,000 MG/20 ML VIAL IV STA (02:36)
[2020-06-19] MEDS ORDERED: ERYTHROMYCIN OP OINT 5 MG/GM 3.5 GM TUBE OPL STA (02:39)
[2020-06-19] MEDS ORDERED: PHARMACY GLYCEMIC MGMT CONSULT STA (02:47)
[2020-06-19] MEDS ORDERED: HEPARIN 25000 UNIT/500 ML D5W IV ONE (02:50)
[2020-06-19] MEDS: HEPARIN SODIUM/DEXTROSE 25,000 UNITS/500 ML BAG IV SCH ×2 (03:01→17:28)
[2020-06-19] MEDS ORDERED: PHARMACY GLYCEMIC MGMT CONSULT PRN (03:32)
[2020-06-19] MEDS ORDERED: NITROGLYCERIN SL 0.4 MG/TAB TAB SL PRN (04:08)
[2020-06-19] MEDS ORDERED: CEFEPIME CONSULT ACTIVE PRN (04:08)
[2020-06-19] MEDS ORDERED: PROMETHAZINE HCL 12.5 MG in SODIUM CHLORIDE 0.9% 50 ML IV PRN (04:08)
[2020-06-19] MEDS ORDERED: ACETAMINOPHEN 325 MG TAB PO PRN (04:08)
[2020-06-19] MEDS: Heparin IV Adult Wt-Based Standard *NO* Bolus Protocol IV SCH (04:12)
[2020-06-19] MEDS ORDERED: GLUCOSE 40% GEL 15 GM TUBE PO PRN (05:00)
[2020-06-19] MEDS ORDERED: GLUCAGON FOR INJ 1 MG VIAL SQ PRN (05:00)
[2020-06-19] MEDS ORDERED: CARBOHYDRATES FOR HYPOGLYCEMIA PO PRN (05:00)
[2020-06-19] MEDS ORDERED: GLUCOSE 10 TABS/TUBE PO PRN (05:00)
[2020-06-19] MEDS: LEVOTHYROXINE SODIUM 50 MCG TABLET PO SCH (05:51)
[2020-06-19] MEDS: LEVOTHYROXINE SODIUM 200 MCG TABLET PO SCH (05:51)
[2020-06-19 06:05] LABS: Estimated Average Glucose 301 mg/dl; Hemoglobin A1C 12.1 % (4.5-5.6)
--- NOTE | 2020-06-19 06:41 | CT Scan Report ---
CT head/brain wo con CLINICAL HISTORY: 70 years-old Male with headache. Acute headache TECHNIQUE: Multiple axial CT images of the head were obtained without contrast. A dose lowering tech nique was utilized adhering to the principles of ALARA. CT DOSE: 614.27 mGy.cm COMPARISON: Head CT 11/10/2018 FINDINGS: No acute intracranial hemorrhage, midline shift, intracranial mass, hydrocephalus, territorial ischem ia or abnormal extra-axial collection. Cerebral vascular calcifications. The calvarium is intact. Prior bilateral lens replacement. Mastoid air cells are clear. Mild mucosal thickening of the left maxillary sinus. IMPRESSION: No acute intracranial abnormality. ACT 112: Negative or not required by law. The above report was generated using voice recognition software. It may contain grammatical, syntax o r spelling errors. Electronically signed by: Pk Menchaca M.D. 06/19/2020 6:40 AM
[2020-06-19] MEDS ORDERED: INFLUENZA VACCINE HIGH DOSE 65+ 0.7 ML SYR IM ONE (06:45)
[2020-06-19] MEDS ORDERED: PNEUMOCOCCAL Polysaccharide Vaccine 25mcg/0.5mL vial/Syr IM ONE (06:45)
[2020-06-19] MEDS: DICLOFENAC SOD 1% GEL 100 GM TUBE EXT SCH ×2 (07:24→20:23)
[2020-06-19] MEDS: OXYBUTYNIN CHLORIDE XL 5 MG TABCR PO SCH (07:25)
[2020-06-19] MEDS: ASPIRIN 81 MG ECTAB PO SCH (07:25)
[2020-06-19] MEDS: ERYTHROMYCIN OP OINT 5 MG/GM 3.5 GM TUBE OPL SCH ×4 (07:25→20:18)
[2020-06-19] MEDS: PANTOprazole 40 MG TAB PO SCH (07:25)
[2020-06-19] MEDS: buPROPion XL 150 MG TABCR PO SCH (07:25)
[2020-06-19] MEDS: OMEGA-3 (PURIFIED FISH OIL) 1 GM CAP PO SCH ×2 (07:25→20:19)
[2020-06-19] MEDS: CEROVITE ADV FORMULA TAB PO SCH (07:25)
[2020-06-19] MEDS: METOPROLOL SUCC 25MG EXT REL TAB PO SCH ×2 (07:25→20:19)
[2020-06-19] MEDS: allopurinoL 300 MG TAB PO SCH (07:25)
[2020-06-19] MEDS: GABAPENTIN 100 MG CAP PO SCH ×3 (07:26→20:19)
[2020-06-19] MEDS: DULoxetine HCL 60 MG CAP PO SCH (07:26)
--- NOTE | 2020-06-19 07:37 | XRay Report ---
XR chest 1V portable CLINICAL HISTORY: SEPSIS COMPARISON STUDY: Chest radiograph February 13, 2020. FINDINGS: Dual lead left subclavian pacer is in place. There is no pneumothorax. No pleural effusion is identified. Note is made of cardiomegaly. There is pulmonary vascular congestion without overt pul monary edema. There is apparent right infrahilar opacity. IMPRESSION: 1. Right infrahilar opacity which could reflect atelectasis or an infectious process. Radiographic fo llow-up is recommended. 2. Cardiomegaly. Pulmonary vascular congestion without overt pulmonary edema. ACT 112: Negative or not required by law. Electronically signed by: Basil Hills M.D. 06/19/2020 7:36 AM
[2020-06-19] MEDS: INSULIN ASPART 100 UNITS/ML 3 ML PEN SC SCH ×4 (07:47→20:24)
[2020-06-19] MEDS ORDERED: INSULIN HUMAN NPH SC ONE (08:30)
[2020-06-19] MEDS: EUCERIN CR 120 GM JAR EXT SCH ×2 (08:50→20:18)
[2020-06-19 08:59] LABS: Basophils # (auto) 0.01 K/uL (0-0.2); Basophils % (auto) 0.2 %; Eosinophils # (auto) 0.16 K/uL (0-0.5); Eosinophils % (auto) 2.8 %; Hematocrit (blood only) 37.7 % (42-52); Hemoglobin 12.9 g/dL (14.0-18.0); Immature Granulocytes # (auto) 0.02 K/uL (0.00-0.02); Immature Granulocytes % (auto) 0.3 %; Lymphocytes # (auto) 1.61 K/uL (1.2-3.4); Mean Corpuscular Hemoglobin 29.6 pg (25-34); Mean Corpuscular Hgb Conc 34.2 g/dL (32-36); Mean Corpuscular Volume 86.5 fL (80-100); Mean Platelet Volume 11.2 fL (7.4-10.4); Monocytes # (auto) 0.76 K/uL (0.11-0.59); Monocytes % (auto) 13.2 %; Neutrophils % (auto) 55.5 %; Platelet Count 138 K/uL (130-400); RDW Coefficient of Variation 13.7 % (11.5-14.5); RDW Standard Deviation 43.1 fL (36.4-46.3); Red Blood Count 4.36 M/uL (4.7-6.1); White Blood Count 5.76 K/uL (4.8-10.8)
[2020-06-19 09:23] LABS: INR 1.5 (0.9-1.1); Partial Thromboplastin Ratio 2.4; Prothrombin Time 15.6 Seconds (9.0-12.0)
[2020-06-19 09:25] LABS: Partial Thromboplastin Time 66.9 Seconds (21.0-31.0)
[2020-06-19 09:51] LABS: BUN Creatinine Ratio 42.3 (10-20); Calcium 9.7 mg/dl (8.5-10.1); Creatinine Clr Calc Pharmacy 66.7 ml/min; Est GFR (African American) 54.7; Est GFR (Non-African American) 47.2; Magnesium 2.7 mg/dl (1.8-2.4); Potassium 4.3 mmol/L (3.5-5.1)
[2020-06-19] MEDS: CEFEPIME 2,000 MG in SYRINGE 0 ML IV SCH (14:24)
--- NOTE | 2020-06-19 14:31 | Pharmacy Report ---
Glycemic Control Consultation - Date of Service June 19, 2020 - Scope Scope: Glycemic Pharmacist consulted for glycemic control and to write orders per [facility] inpatient glycemic control protocol. - Objective Weight: 144.2 kg Accuchecks BSG (last 24hrs): 06/18/20 06/18/20 06/19/20 19:56 20:00 00:14 Glucose 611 H* POC Glucose > 600 H* 147 H 06/19/20 06/19/20 06/19/20 01:10 01:42 02:13 Glucose POC Glucose 97 105 H 72 06/19/20 06/19/20 06/19/20 02:49 04:01 07:29 Glucose POC Glucose 91 104 H 60 L* 06/19/20 06/19/20 06/19/20 07:31 07:49 08:45 Glucose 101 H POC Glucose 71 77 06/19/20 11:29 Glucose POC Glucose 205 H Laboratory Data (last 24hrs): 06/18/20 06/18/20 06/19/20 20:00 20:00 08:45 Potassium 4.7 4.3 Carbon Dioxide 30 31 Anion Gap 10.0 6.0 Creatinine 2.06 H 1.50 H D Est Cr Clr Drug Dosing 48.6 66.7 Osmolality 317 H Beta-Hydroxybutyric Acd 2.33 HbA1c: Hemoglobin A1c 12.1 % (4.5-5.6) H 06/18/20 20:00 - Recent Pertinent Medications Outpatient Anti-diabetic Regimen: * U-500 pump * A1c = 12.7 % 06/19/20 Risk Factors for Insulin Resistance: * IVF: heparin drip * Diet: T2DM - Assessment & Plan Assessment & Plan: ASSESSMENT: * Mr Andujar is a 70 y/o M with a PMH of T2DM on U-500 pump. Patient had several days of hyperglycemia due to pump malfunction. Once restarted, the patient's hyperglycemia did not resolve. Patient's insulin pump was disconnected in the ED last night. Overnight, the patient had prolonged hypoglycemia which is accounted for by the longer half life of U-500. * Due to tentative PO intake and hypoglycemia, opted to give NPH vs U-500. Based upon previous hospitalization, patient does well with NPH 50 units BIDM with CF of 6 and CR of 2. Started with NPH 40 units. The patient's lunch BSG was 205 mg/dL. * For NPH at dinner will start NPH 50 units BIDM. Tighten Novolog to CF of 8 and CR of 3. If this does not approve effective, will tighten further. PLAN FOR INPATIENT GLYCEMIC CONTROL: * Basal insulin * NPH 50 units SQ BIDM * Bolus insulin * NovoLog per scale ACHS or Q6hrs while NPO * Goal Range: Low 110 mg/dL - High 140 mg/dL * Correction Factor: 8 mg/dL/unit * Nutritional / Prandial insulin per carb ratio of 1 unit per 3 grams CHO consumed * Please note that the plan above was derived based on current level of insulin resistance and hospital stress. These recommendations are appropriate for inpatient admission only. Plan of care upon discharge will need to be reassessed to avoid potential outpatient hypo/hyperglycemia. Thank you.
--- NOTE | 2020-06-19 14:43 | Electrocardiogram Report ---
Test Reason : Blood Pressure : / mmHG Vent. Rate : 060 BPM Atrial Rate : 060 BPM P-R Int : 226 ms QRS Dur : 164 ms QT Int : 462 ms P-R-T Axes : 000 -73 024 degrees QTc Int : 462 ms Atrial-paced rhythm with prolonged AV conduction Right bundle branch block Left anterior fascicular block Bifascicular block Abnormal ECG When compared with ECG of 15-FEB-2020 09:15, No significant change was found Confirmed by Jim Davenport ([id number]) on 06/19/2020 2:43:02 PM Referred By: REFERRED SELF Confirmed By:Jim Davenport
[2020-06-19 16:36] LABS: Partial Thromboplastin Ratio 2.4
[2020-06-19 16:45] LABS: Partial Thromboplastin Time 67.5 Seconds (21.0-31.0)
[2020-06-19] MEDS ORDERED: INSULIN HUMAN NPH SC SCH (17:00)
[2020-06-19] MEDS: WARFARIN SOD 5 MG TAB PO SCH (17:27)
[2020-06-19] MEDS: ATORVASTATIN 10 MG TAB PO SCH (20:19)
[2020-06-19] MEDS: DIGOXIN 0.125 MG TAB PO SCH (20:19)
--- NOTE | 2020-06-19 20:40 | Hospitalist Progress Note ---
Date of Service June 19, 2020 Assessment & Plan (1) Hyperglycemic crisis in diabetes mellitus: Possible HHS DM II ? due to Insulin Pump failure Last HbA1C: 7.14 January 2020 Blood glucose levels improved after IV insulin Received IV fluids Continue insulin therapy Monitor blood glucose levels Glycemic pharmacy consulted Resume home diuretics as able Urinary tract infection Possible Sepsis Blood, urine cultures pending Lactic acid levels normalized with IVF Received IV fluids Continue cefepime Subtherapeutic INR Continue IV heparin until INR therapeutic Continue Coumadin Monitor INR:1.5 Left Eye conjunctivitis Continue topical erythromycin Pseudo Hyponatremia Due to Hyperglycemia Monitor sodium levels Chronic diastolic heart failure EF 55 to 60% Continue on signs of CHF decompensation Resume home diuretics as able Recurrent falls ? Secondary to orthostasis Check Orthostatics Pacemaker interrogation requested Fall precautions PT/OT H/O SSS S/P PPM ? Medication compliance Heart rate relatively low Adjust home Metoprolol as needed COPD/ILD Baseline pulmonary status No complaints Hypothyroidism Continue Levothyroxine CKD III Cr at baseline Monitor renal function DVT Px: IV heparin till INR therapeutic Coumadin Code Status Full code Disposition To be determined Admission and Anticipated Discharge Date Admission Date: June 19, 2020 Subjective Patient is seen and examined at bedside Admits to having dysuria Has chronic bilateral knee pain Denies chest pain, dyspnea, dizziness, nausea, and abdominal pain Offers no other complaints Review of Systems Review of Systems: All systems reviewed & are unremarkable except as noted in HPI & below Physical Exam Physical Exam: Physical Exam: Vitals signs as noted above General Appearance:Morbidly Obese, no apparent distress Head: normocephalic, Atraumatic Eyes: normal inspection, EOMI Neck: supple, Trachea midline Respiratory/Chest: Normal breath sounds, CTA, No accessory muscle use Cardiovascular: Irregularly irregular, No murmur Abdomen/GI:Soft, Non tender, Bowel sounds present Extremities/Musculoskelatal:normal inspection, chronic venous stasis changes, 1+ bilateral lower extremity edema Neurologic/Psych:AAOX3, grossly no focal neurological deficits Skin: normal color, warm Results & Data Results & Data ([facility]) Vital Signs (Past 12 Hours) Vital Signs Temp Pulse Pulse Resp BP BP Pulse Ox 06/19/20 20:22 36.4 C L 76 16 134/67 92 06/19/20 20:19 85 06/19/20 20:14 36.6 C 77 18 104/63 90 06/19/20 15:40 90 06/19/20 14:58 36.6 C 77 18 104/63 92 06/19/20 11:16 36.5 C 81 18 144/68 H 90 Laboratory Results Short CBC 06/18/20 06/19/20 Range/Units 20:00 08:45 WBC 4.93 5.76 (4.8-10.8) K/uL Hgb 13.0 L 12.9 L (14.0-18.0) g/dL Hct 37.9 L 37.7 L (42-52) % Plt Count 133 138 (130-400) K/uL BMP 06/18/20 06/19/20 20:00 08:45 Sodium 124 L 134 L D Potassium 4.7 4.3 Chloride 84 L 98 Carbon Dioxide 30 31 BUN 69 H 64 H Creatinine 2.06 H 1.50 H D Glucose 611 H* 101 H Calcium 10.0 9.7 Cardiac Enzymes 06/18/20 Range/Units 20:00 Troponin I < 0.015 (0-0.045) ng/ml Liver Function 06/18/20 Range/Units 20:00 Total Bilirubin 1.3 H (0.2-1) mg/dl Direct Bilirubin 0.3 H (0-0.2) mg/dl AST 17 (15-37) U/L ALT 22 (12-78) U/L Alkaline Phosphatase 131 H (45-117) U/L Albumin 3.3 L (3.4-5.0) gm/dl Urine 06/18/20 Range/Units 22:34 Urine Color Yellow Urine Appearance Cloudy A (Clear) Urine pH 5.0 (4.5-7.5) Ur Specific [place] 1.025 (1.000-1.030) Urine Protein Negative (Negative) Urine Glucose (UA) 3+ H (Negative)
[2020-06-19 23:45] LABS: Partial Thromboplastin Ratio 2.7
[2020-06-19 23:54] LABS: Partial Thromboplastin Time 74.5 Seconds (21.0-31.0)
[2020-06-20] MEDS: CEFEPIME 2,000 MG in SYRINGE 0 ML IV SCH ×2 (03:07→14:35)
[2020-06-20] MEDS: INSULIN ASPART 100 UNITS/ML 3 ML PEN SC SCH ×6 (03:18→21:24)
[2020-06-20] MEDS: LEVOTHYROXINE SODIUM 200 MCG TABLET PO SCH (06:08)
[2020-06-20] MEDS: LEVOTHYROXINE SODIUM 50 MCG TABLET PO SCH (06:08)
[2020-06-20 07:06] LABS: INR 1.8 (0.9-1.1); Partial Thromboplastin Ratio 1.9; Prothrombin Time 18.5 Seconds (9.0-12.0)
[2020-06-20 07:07] LABS: Partial Thromboplastin Time 53.2 Seconds (21.0-31.0)
[2020-06-20 07:24] LABS: BUN Creatinine Ratio 31.5 (10-20); Calcium 9.2 mg/dl (8.5-10.1); Creatinine Clr Calc Pharmacy 69.5 ml/min; Est GFR (African American) 57.4; Est GFR (Non-African American) 49.5; Potassium 4.5 mmol/L (3.5-5.1)
[2020-06-20 07:34] LABS: Beta-Hydroxybutyrate 6.78 mg/dl (0.2-2.81)
[2020-06-20] MEDS: buPROPion XL 150 MG TABCR PO SCH (08:45)
[2020-06-20] MEDS: METOPROLOL SUCC 25MG EXT REL TAB PO SCH ×2 (08:45→20:43)
[2020-06-20] MEDS: DULoxetine HCL 60 MG CAP PO SCH (08:45)
[2020-06-20] MEDS: CEROVITE ADV FORMULA TAB PO SCH (08:46)
[2020-06-20] MEDS: OXYBUTYNIN CHLORIDE XL 5 MG TABCR PO SCH (08:46)
[2020-06-20] MEDS: OMEGA-3 (PURIFIED FISH OIL) 1 GM CAP PO SCH ×2 (08:46→20:40)
[2020-06-20] MEDS: ASPIRIN 81 MG ECTAB PO SCH (08:47)
[2020-06-20] MEDS: PANTOprazole 40 MG TAB PO SCH (08:47)
[2020-06-20] MEDS: allopurinoL 300 MG TAB PO SCH (08:47)
[2020-06-20] MEDS: COLCHICINE 0.6 MG TAB PO SCH (08:47)
[2020-06-20] MEDS: EUCERIN CR 120 GM JAR EXT SCH ×2 (08:48→20:37)
[2020-06-20] MEDS: GABAPENTIN 100 MG CAP PO SCH ×3 (08:48→20:40)
[2020-06-20] MEDS: DICLOFENAC SOD 1% GEL 100 GM TUBE EXT SCH ×2 (08:48→20:40)
[2020-06-20] MEDS: ERYTHROMYCIN OP OINT 5 MG/GM 3.5 GM TUBE OPL SCH ×4 (08:48→20:37)
[2020-06-20] MEDS: INSULIN HUMAN NPH SC SCH ×2 (08:50→17:32)
[2020-06-20] MEDS: HEPARIN SODIUM/DEXTROSE 25,000 UNITS/500 ML BAG IV SCH (08:56)
[2020-06-20] MEDS ORDERED: INSULIN ASPART 100 UNITS/ML 3 ML PEN SC SCH (11:00)
[2020-06-20] MEDS ORDERED: INSULIN HUMAN REGULAR IV BOLUS 5 UNITS in SYRINGE 0 ML IV ONE (12:00)
[2020-06-20] MEDS: INSULIN REGULAR 250 UNITS in SODIUM CHLORIDE 0.9% 247.5 ML IV SCH (12:25)
--- NOTE | 2020-06-20 13:53 | Pharmacy Report ---
Glycemic Control Progress Note - Date of Service June 20, 2020 - Scope Glycemic Pharmacist consulted for glycemic control to write orders per [facility] inpatient glycemic control protocol. - Objective Accuchecks BSG(last 24 hours):: 06/19/20 06/19/20 06/20/20 16:40 19:54 02:21 Glucose POC Glucose 219 H 282 H 263 H 06/20/20 06/20/20 06/20/20 06:31 07:26 07:27 Glucose 319 H* POC Glucose 304 H* 311 H* 06/20/20 06/20/20 06/20/20 10:56 10:57 10:57 Glucose POC Glucose 582 H* 401 H* 363 H* 06/20/20 06/20/20 12:24 13:22 Glucose POC Glucose 346 H* 391 H* HbA1c:: Hemoglobin A1c 12.1 % (4.5-5.6) H 06/18/20 20:00 - Recent Pertinent Medications The patient is currently receiving: * Basal insulin: NPH 40 units in the morning and 50 units at bedtime * Correctional Insulin: Novolog Correction per scale ACHS Goal Range: Low 110 mg/dL - High 140 mg/dL Correction Factor: 8 mg/dL/unit * Prandial insulin: Per carb ratio of 1 unit per 3 grams CHO consumed - Outpatient Anti-Diabetic Meds U-500 pump - Assessment & Plan ASSESSMENT: * See progress note from 06/29/20 for more background info, in short: * Pt receiving SQ basal bolus insulin regimen for hyperglycemia secondary to baseline DM (outpatient regimen on hold),stress/infection (bacteremia on cefepime), and heparin infusion (30 mLs/hr or about 1.5 gm/hour) * Patient is currently receiving an average of 158 units of insulin per day * 90 units of basal insulin * 68 units of prandial/correctional insulin * BSGs ranging 60 - 282 mg/dl over the past 24hrs * Changes needed to insulin regimen: * AM Fasting BSG = 304 mg/dl. This is above goal range for patient based on inpatient targets and co-morbidities. Increased patient's NPH to 60 units BIDM. Based upon hospitalization where NPH was used, patient required around 175 units/day to achieve control. Yesterday's insulin dosing was close to this. * Post-prandial BSGs trended upwards yesterday so tightened carbohydrate ratio. BSG trended even further upwards after [address] Leone regarding extreme hyperglycemia. Thoughts were this may be due to insulin deficiency since pump was turned off for several days, infection, and heparin infusion. Plan to continue NPH while insulin infusion is going. Stop if BSG < 180 mg/dL and insulin infusion rate < 1 mL/hr. * Total daily dose = >150 units. Altered insulin. PLAN FOR INPATIENT GLYCEMIC CONTROL: * INCREASING NPH to 60 units SQ BIDM * Eliminating correction factor due to insulin infusion * TIGHTENING carb ratio to 1 unit per 2 grams CHO consumed * Changing goal range to Low 140 mg/dL - High 200 mg/dL * Please note that the plan above was derived based on current level of insulin resistance and hospital stress. These recommendations are appropriate for inpatient admission only. Plan of care upon discharge will need to be reassessed to avoid potential outpatient hypo/hyperglycemia. Thank you.
[2020-06-20] MEDS: WARFARIN SOD 5 MG TAB PO SCH (15:35)
[2020-06-20] MEDS: MICONAZOLE NITRATE POWDER 43 GM EXT PRN ×2 (16:25→20:36)
--- NOTE | 2020-06-20 17:58 | Hospitalist Progress Note ---
Date of Service June 20, 2020 Assessment & Plan (1) Hyperglycemic crisis in diabetes mellitus: Possible HHS DM II ? due to Insulin Pump failure Last HbA1C: 7.14 January 2020 Blood glucose levels improved after IV insulin Received IV fluids Continue insulin therapy Monitor blood glucose levels Glycemic pharmacy consulted Resume home diuretics as able Persistent hypoglycemia--started on IV insulin Urinary tract infection Possible Sepsis Blood Cx: No growth to date Urine culture: E. coli--sensitivities pending Lactic acid levels normalized with IVF Received IV fluids Continue cefepime for now Subtherapeutic INR Continue IV heparin until INR therapeutic Continue Coumadin Monitor INR:1.5>1.8 Left Eye conjunctivitis Reports Left eye blurry vision Continue topical erythromycin Pseudo Hyponatremia Due to Hyperglycemia Monitor sodium levels: 133 today Chronic diastolic heart failure EF 55 to 60% Continue on signs of CHF decompensation Resume home diuretics today Recurrent falls ? Secondary to orthostasis Check Orthostatics Pacemaker interrogation requested Fall precautions PT/OT H/O SSS S/P PPM ? Medication compliance Heart rate relatively low Adjust home Metoprolol as needed COPD/ILD Baseline pulmonary status No complaints Hypothyroidism Continue Levothyroxine CKD III Cr at baseline Monitor renal function DVT Px: IV heparin till INR therapeutic Coumadin Code Status Full code Disposition Follow up with upon discharge Admission and Anticipated Discharge Date Admission Date: June 19, 2020 Subjective Patient is seen and examined at bedside Still has persistent dysuria Concern about hospitalization--given his daughter's wedding on Thursday Hypoglycemia on labs--plan to be started on IV insulin Denies chest pain, dyspnea, dizziness, nausea, and abdominal pain Offers no other complaints Review of Systems Review of Systems: All systems reviewed & are unremarkable except as noted in HPI & below Physical Exam Physical Exam: Physical Exam: Vitals signs as noted above General Appearance:Morbidly Obese, no apparent distress Head: normocephalic, Atraumatic Eyes: normal inspection, EOMI Neck: supple, Trachea midline Respiratory/Chest: Normal breath sounds, CTA, No accessory muscle use Cardiovascular: Irregularly irregular, No murmur Abdomen/GI:Soft, Non tender, Bowel sounds present Extremities/Musculoskelatal:normal inspection, chronic venous stasis changes, 1+ bilateral lower extremity edema Neurologic/Psych:AAOX3, grossly no focal neurological deficits Skin: normal color, warm Results & Data Results & Data ([place]) Vital Signs (Past 12 Hours) Vital Signs Temp Pulse Pulse Resp BP BP Pulse Ox 06/20/20 15:31 36.5 C 87 16 126/64 94 06/20/20 14:31 92 H 06/20/20 11:23 36.7 C 120 H 18 121/79 92 06/20/20 07:11 37.1 C 82 18 133/70 96 Laboratory Results [facility] 06/20/20 06:31 Sodium 133 L Potassium 4.5 Chloride 100 Carbon Dioxide 27 BUN 45 H Creatinine 1.44 H Glucose 319 H* Calcium 9.2
[2020-06-20] MEDS: FUROSEMIDE 80 MG TAB PO SCH (19:02)
[2020-06-20 20:32] LABS: Hematocrit (blood only) 39.3 % (42-52); Hemoglobin 13.2 g/dL (14.0-18.0)
[2020-06-20] MEDS: ATORVASTATIN 10 MG TAB PO SCH (20:38)
[2020-06-20] MEDS: DIGOXIN 0.125 MG TAB PO SCH (20:38)
[2020-06-20] MEDS: traMADol HCL 50 MG TABLET PO PRN (23:49)
[2020-06-21] MEDS: HEPARIN SODIUM/DEXTROSE 25,000 UNITS/500 ML BAG IV SCH (01:19)
[2020-06-21] MEDS: CEFEPIME 2,000 MG in SYRINGE 0 ML IV SCH ×2 (02:04→14:13)
[2020-06-21] MEDS: LEVOTHYROXINE SODIUM 200 MCG TABLET PO SCH (06:00)
[2020-06-21] MEDS: LEVOTHYROXINE SODIUM 50 MCG TABLET PO SCH (06:00)
[2020-06-21 06:50] LABS: Hematocrit (blood only) 40.3 % (42-52); Hemoglobin 13.3 g/dL (14.0-18.0); Mean Corpuscular Hemoglobin 29.6 pg (25-34); Mean Corpuscular Volume 89.6 fL (80-100); Mean Platelet Volume 11.9 fL (7.4-10.4); Platelet Count 149 K/uL (130-400); RDW Coefficient of Variation 14.7 % (11.5-14.5); RDW Standard Deviation 47.8 fL (36.4-46.3); White Blood Count 5.03 K/uL (4.8-10.8)
[2020-06-21 07:01] LABS: INR 2.1 (0.9-1.1); Prothrombin Time 20.9 Seconds (9.0-12.0)
[2020-06-21 07:25] LABS: BUN Creatinine Ratio 24.7 (10-20); Calcium 9.8 mg/dl (8.5-10.1); Creatinine Clr Calc Pharmacy 64.5 ml/min; Est GFR (African American) 53.8; Est GFR (Non-African American) 46.4; Potassium 3.9 mmol/L (3.5-5.1)
[2020-06-21] MEDS: INSULIN ASPART 100 UNITS/ML 3 ML PEN SC SCH ×4 (08:31→21:02)
[2020-06-21] MEDS: MICONAZOLE NITRATE POWDER 43 GM EXT PRN (08:34)
[2020-06-21] MEDS: FUROSEMIDE 80 MG TAB PO SCH ×2 (08:35→16:16)
[2020-06-21] MEDS: DICLOFENAC SOD 1% GEL 100 GM TUBE EXT SCH ×2 (08:35→20:37)
[2020-06-21] MEDS: ERYTHROMYCIN OP OINT 5 MG/GM 3.5 GM TUBE OPL SCH ×4 (08:35→20:33)
[2020-06-21] MEDS: PANTOprazole 40 MG TAB PO SCH (08:39)
[2020-06-21] MEDS: buPROPion XL 150 MG TABCR PO SCH (08:39)
[2020-06-21] MEDS: GABAPENTIN 100 MG CAP PO SCH ×3 (08:39→20:35)
[2020-06-21] MEDS: METOPROLOL SUCC 25MG EXT REL TAB PO SCH ×2 (08:39→20:36)
[2020-06-21] MEDS: CEROVITE ADV FORMULA TAB PO SCH (08:40)
[2020-06-21] MEDS: OXYBUTYNIN CHLORIDE XL 5 MG TABCR PO SCH (08:40)
[2020-06-21] MEDS: allopurinoL 300 MG TAB PO SCH (08:40)
[2020-06-21] MEDS: OMEGA-3 (PURIFIED FISH OIL) 1 GM CAP PO SCH ×2 (08:40→20:36)
[2020-06-21] MEDS: ASPIRIN 81 MG ECTAB PO SCH (08:40)
[2020-06-21] MEDS: DULoxetine HCL 60 MG CAP PO SCH (08:40)
[2020-06-21] MEDS: EUCERIN CR 120 GM JAR EXT SCH ×2 (08:41→20:33)
[2020-06-21] MEDS: traMADol HCL 50 MG TABLET PO PRN ×2 (11:27→17:53)
[2020-06-21] MEDS: INSULIN REGULAR 250 UNITS in SODIUM CHLORIDE 0.9% 247.5 ML IV SCH (12:02)
--- NOTE | 2020-06-21 15:03 | Pharmacy Report ---
Pharmacy Glycemic Short Note 2 - Date of Service June 21, 2020 - Glycemic Short BSG Results (Last 24 hours): 06/20/20 06/20/20 06/20/20 15:29 16:28 17:34 Glucose POC Glucose 310 H* 275 H 194 H 06/20/20 06/20/20 06/20/20 18:02 18:59 19:58 Glucose POC Glucose 233 H 245 H 187 H 06/20/20 06/20/20 06/20/20 20:56 21:59 22:49 Glucose POC Glucose 150 H 151 H 161 H 06/21/20 06/21/20 06/21/20 00:03 02:01 04:09 Glucose POC Glucose 155 H 165 H 146 H 06/21/20 06/21/20 06/21/20 05:51 06:10 07:53 Glucose 165 H POC Glucose 151 H 185 H 06/21/20 06/21/20 06/21/20 10:04 11:12 12:00 Glucose POC Glucose 319 H* 305 H* 272 H 06/21/20 06/21/20 13:18 14:07 Glucose POC Glucose 315 H* 295 H OUTPATIENT ANTIDIABETIC REGIMEN: * U-500 Insulin pump ASSESSMENT: * Patient received total of 209 units of basal + bolus insulin. In addition patient an estimated average of 110 units of insulin via the insulin drip over the last 12 hours. * Yesterday, basal insulin with NPH 120 units total was administered. * Fasting BSG this AM was only slightly elevated at 165 mg/dl, however post- prandial BSG has been trending up. * NPH was changed to U-500 insulin since patient had been using this in his pump at home. This may help with transitioning back to his pump closer to discharge as well. * Heparin drip was d/c'd this AM. I expected this d/c to have improved BSGs today but does not seem to have made a significant difference. * Since patient received over 250 units of insulin yesterday with basal + bolus + IV, I ordered U-500 insulin TID today with meals to equal total of 180 units of insulin. Goal is to try to wean off IV Insulin drip by tomorrow morning. PLAN FOR INPATIENT GLYCEMIC CONTROL: * Basal insulin * Humulin U-500 80 units SQ QAM + 40 units with lunch + 60 units with dinner. * Bolus insulin * NovoLog per scale ACHS or Q6hrs while NPO * Goal Range: Low 110 mg/dL - High 140 mg/dL * Nutritional / Prandial insulin per carb ratio of 1 unit per 2 grams CHO consumed * IV insulin drip - titrate to goal BSG 140-180 mg/dl PLAN FOR DISCHARGE: * TBD
[2020-06-21] MEDS: WARFARIN SOD 5 MG TAB PO SCH (16:16)
[2020-06-21] MEDS: DEXTROSE 50% 50 ML SYRINGE IV PRN ×2 (20:21→21:01)
[2020-06-21] MEDS: DIGOXIN 0.125 MG TAB PO SCH (20:34)
[2020-06-21] MEDS: ATORVASTATIN 10 MG TAB PO SCH (20:35)
--- NOTE | 2020-06-21 21:42 | Hospitalist Progress Note ---
Date of Service June 21, 2020 Assessment & Plan (1) Hyperglycemic crisis in diabetes mellitus: History of DM type 2 complicated by CKD, recently managed with insulin pump. Recent insulin pump malfunction and possible dietary noncompliance. Blood sugars > 400 at home. Random blood sugar 611 in ED. Hgb A1c = 12.1. Received IV insulin and IV fluids. Pharmacy consulted for glycemic management. Will need ongoing support as outpatient. (2) Acute kidney injury: CKD III with baseline creatinine around 1.5 - 1.6. Creatinine at time of admission 2.06. ALMA ROSA secondary to hyperglycemia. Received IV fluids. Creatinine today = 1.52. (3) Urinary tract infection: Admission UA showed WBC's and + leukocyte esterase. Afebrile. No leukocytosis. Procalcitonin normal. Received empiric therapy with cefepime. Urine culture growing E coli, resistant to ampicillin and TMP/sulfa, sensitive to cephalosporins and quinolones. Chronic urinary incontinence; consider chronic prostatitis. Not ideal candidate for quinolones- underlying heart disease and QTc 462 msec. Change Rx to IV ceftriaxone during hospital stay with probable DC on oral cephalosporin. (4) Abnormal chest x-ray: Portable chest x-ray showed: "Right infrahilar opacity which could reflect atelectasis or an infectious process. Radiographic follow-up is recommended." (5) Chronic diastolic CHF (congestive heart failure): Compensated. Continue furosemide. (6) Paroxysmal atrial fibrillation: Continue metoprolol, digoxin, warfarin. (7) Hypertension: Continue metoprolol. (8) COPD, moderate: Pulmonary status stable. (9) Hypothyroidism: TSH 0.512. Continue levothyroxine. (10) Morbid obesity: Wt 139 kg, BMI 45. Heart healthy diet. (11) DVT prophylaxis: On warfarin with subtherapeutic INR at time of admission. Received IV heparin. INR now therapeutic. Continue wafarin. (12) Discharge planning issues: Discharge disposition to be determined. Internal Medicine follow-up with Dr. Jara. Diabetes management with [facility]. Admission and Anticipated Discharge Date Admission Date: June 19, 2020 Subjective Recheck for hyperglycemia, UTI, and other problems. Patient seen in their room around 1500. Blood sugars under better control, but still on insulin drip. No fever. No flank pain. Has Valentine cath. Review of Systems: Constitutional- no fever. Cardiac- as noted above. Pulmonary- no cough or SOB. GI- no nausea, vomiting, diarrhea, melena, hematochezia. - as noted above. Otherwise, as noted above. Physical Exam Constitutional: no acute distress Eyes: + anicteric sclerae Respiratory: normal respiratory effort, lungs clear to auscultation Cardiovascular: Rate/Rhythm: regular rate and regular rhythm Vessels: no JVD Extremities: + edema (1+ pretibial); no calf tenderness Gastrointestinal (Abdomen): normal bowel sounds, soft, nontender, no hepatosplenomegaly Musculoskeletal: Extremities: no cyanosis Skin: no rashes, warm and dry Psychiatric: Orientation: alert and oriented x 3 Genitourinary: + bladder abnormal to inspection (Valentine cath) Results & Data Results & Data ([facility]) Vital Signs (Past 12 Hours) Vital Signs Temp Pulse Pulse Resp BP BP Pulse Ox 06/21/20 20:34 67 06/21/20 20:32 67 143/83 H 06/21/20 19:00 36.6 C 68 19 135/78 98 06/21/20 16:13 137/86 06/21/20 14:28 68 06/21/20 11:13 36.8 C 76 18 103/66 93 Laboratory Results Laboratory Results - last 24 hr 06/21/20 06/21/20 06/21/20 04:09 05:51 06:10 WBC RBC Hgb Hct MCV MCH MCHC RDW Std Deviation RDW Coeff of Baldo Plt Count MPV PT 20.9 H INR 2.1 H Sodium Potassium Chloride Carbon Dioxide Anion Gap BUN Creatinine Est Cr Clr Drug Dosing Est GFR ( Amer) Est GFR (Non-Af Amer) BUN/Creatinine Ratio Glucose POC Glucose 146 H 151 H Calcium 06/21/20 06/21/20 06/21/20 06:10 06:10 07:53 WBC 5.03 RBC 4.50 L Hgb 13.3 L Hct 40.3 L MCV 89.6 MCH 29.6 MCHC 33.0 RDW Std Deviation 47.8 H RDW Coeff of Baldo 14.7 H Plt Count 149 MPV 11.9 H PT INR Sodium 137 Potassium 3.9 Chloride 102 Carbon Dioxide 27 Anion Gap 8.0 BUN 38 H Creatinine 1.52 H Est Cr Clr Drug Dosing 64.5 Est GFR ( Amer) 53.8 Est GFR (Non-Af Amer) 46.4 BUN/Creatinine Ratio 24.7 H Glucose 165 H POC Glucose 185 H Calcium 9.8 (1) Hypertension Hypertension type: unspecified Qualified Code(s): I10 - Essential (primary) hypertension (2) Hypothyroidism Hypothyroidism type: unspecified Qualified Code(s): E03.9 - Hypothyroidism, unspecified
[2020-06-22] MEDS: CEFEPIME 2,000 MG in SYRINGE 0 ML IV SCH (02:56)
[2020-06-22] MEDS: INSULIN ASPART 100 UNITS/ML 3 ML PEN SC SCH ×5 (05:39→22:09)
[2020-06-22] MEDS: LEVOTHYROXINE SODIUM 200 MCG TABLET PO SCH (06:03)
[2020-06-22] MEDS: LEVOTHYROXINE SODIUM 50 MCG TABLET PO SCH (06:03)
[2020-06-22 06:13] LABS: INR 2.4 (0.9-1.1); Prothrombin Time 24.4 Seconds (9.0-12.0)
[2020-06-22 06:19] LABS: BUN Creatinine Ratio 21.4 (10-20); Calcium 9.3 mg/dl (8.5-10.1); Creatinine Clr Calc Pharmacy 56.4 ml/min; Est GFR (African American) 45.7; Est GFR (Non-African American) 39.4; Potassium 3.9 mmol/L (3.5-5.1)
[2020-06-22] MEDS: OXYBUTYNIN CHLORIDE XL 5 MG TABCR PO SCH (08:34)
[2020-06-22] MEDS: GABAPENTIN 100 MG CAP PO SCH ×3 (08:35→22:13)
[2020-06-22] MEDS: METOPROLOL SUCC 25MG EXT REL TAB PO SCH ×2 (08:36→22:16)
[2020-06-22] MEDS: FUROSEMIDE 80 MG TAB PO SCH ×2 (08:36→16:15)
[2020-06-22] MEDS: buPROPion XL 150 MG TABCR PO SCH (08:37)
[2020-06-22] MEDS: CEROVITE ADV FORMULA TAB PO SCH (08:37)
[2020-06-22] MEDS: PANTOprazole 40 MG TAB PO SCH (08:37)
[2020-06-22] MEDS: OMEGA-3 (PURIFIED FISH OIL) 1 GM CAP PO SCH ×2 (08:37→22:17)
[2020-06-22] MEDS: ASPIRIN 81 MG ECTAB PO SCH (08:37)
[2020-06-22] MEDS: COLCHICINE 0.6 MG TAB PO SCH (08:37)
[2020-06-22] MEDS: DULoxetine HCL 60 MG CAP PO SCH (08:37)
[2020-06-22] MEDS: allopurinoL 300 MG TAB PO SCH (08:37)
[2020-06-22] MEDS: EUCERIN CR 120 GM JAR EXT SCH ×2 (08:50→22:12)
[2020-06-22] MEDS: DICLOFENAC SOD 1% GEL 100 GM TUBE EXT SCH ×2 (08:50→22:10)
[2020-06-22] MEDS: ERYTHROMYCIN OP OINT 5 MG/GM 3.5 GM TUBE OPL SCH ×4 (08:50→22:11)
[2020-06-22] MEDS: cefTRIAXone SODIUM 2,000 MG in DEXTROSE 5% 50 ML IV SCH (08:50)
[2020-06-22] MEDS: WARFARIN SOD 5 MG TAB PO SCH (15:41)
--- NOTE | 2020-06-22 21:39 | Hospitalist Progress Note ---
Date of Service June 22, 2020 Assessment & Plan (1) Hyperglycemic crisis in diabetes mellitus: History of DM type 2 complicated by CKD, recently managed with insulin pump. Recent insulin pump malfunction and possible dietary noncompliance. Blood sugars > 400 at home. Random blood sugar 611 in ED. Hgb A1c = 12.1. Received IV insulin and IV fluids. Pharmacy consulted for glycemic management. Weaned off insulin drip. Probably best to DC on SQ injections, not on insulin pump. Will need ongoing support as outpatient. (2) Acute kidney injury: CKD III with baseline creatinine around 1.5 - 1.6. Creatinine at time of admission 2.06. ALMA ROSA secondary to hyperglycemia. Received IV fluids. Creatinine today = 1.74. (3) Urinary tract infection: Admission UA showed WBC's and + leukocyte esterase. Afebrile. No leukocytosis. Procalcitonin normal. Received empiric therapy with cefepime. Urine culture growing E coli, resistant to ampicillin and TMP/sulfa, sensitive to cephalosporins and quinolones. Chronic urinary incontinence; consider chronic prostatitis. Not ideal candidate for quinolones- underlying heart disease and QTc 462 msec. Changed Rx to IV ceftriaxone during hospital stay with probable DC on oral cephalosporin. (4) Abnormal chest x-ray: Portable chest x-ray showed: "Right infrahilar opacity which could reflect atelectasis or an infectious process. Radiographic follow-up is recommended." (5) Chronic diastolic CHF (congestive heart failure): Compensated. Continue furosemide. (6) Paroxysmal atrial fibrillation: Continue metoprolol, digoxin, warfarin. (7) Hypertension: Continue metoprolol. (8) COPD, moderate: Pulmonary status stable. (9) Hypothyroidism: TSH 0.512. Continue levothyroxine. (10) Morbid obesity: Wt 139 kg, BMI 45. Heart healthy diet. (11) DVT prophylaxis: On warfarin with subtherapeutic INR at time of admission. Received IV heparin. INR now therapeutic. Continue wafarin. (12) Discharge planning issues: Discharge disposition to be determined. Internal Medicine follow-up with Dr. Jara. Diabetes management with [facility]. Admission and Anticipated Discharge Date Admission Date: June 19, 2020 Subjective Recheck for hyperglycemia, UTI, and other problems. Patient seen in their room around 1500. Off insulin drip. Blood sugars fluctuating. No fever. No flank pain. Using condom cath. Ambulating. Hopes to be discharged by tomorrow- his daughter is getting . Review of Systems: Constitutional- no fever. Cardiac- as noted above. Pulmonary- no cough or SOB. GI- no nausea, vomiting, diarrhea, melena, hematochezia. - as noted above. Otherwise, as noted above. Physical Exam Constitutional: no acute distress Eyes: + anicteric sclerae Respiratory: normal respiratory effort, lungs clear to auscultation Cardiovascular: Rate/Rhythm: regular rate and regular rhythm Vessels: no JVD Extremities: + edema (1-2+ pretibial); no calf tenderness Gastrointestinal (Abdomen): normal bowel sounds, soft, nontender, no hepatosplenomegaly Musculoskeletal: Extremities: no cyanosis Skin: no rashes, warm and dry Psychiatric: Orientation: alert and oriented x 3 Genitourinary: bladder normal to inspection Results & Data Results & Data ([facility]) Vital Signs (Past 12 Hours) Vital Signs Temp Pulse Pulse Resp BP Pulse Ox 06/22/20 20:28 36.6 C 76 18 138/72 92 06/22/20 16:19 36.0 C L 66 16 123/64 97 06/22/20 16:00 65 Laboratory Results 06/21/20 06:10 06/22/20 05:27 (1) Hypertension Hypertension type: unspecified Qualified Code(s): I10 - Essential (primary) hypertension (2) Hypothyroidism Hypothyroidism type: unspecified Qualified Code(s): E03.9 - Hypothyroidism, unspecified
[2020-06-22] MEDS: traMADol HCL 50 MG TABLET PO PRN (22:08)
[2020-06-22] MEDS: DIGOXIN 0.125 MG TAB PO SCH (22:12)
[2020-06-22] MEDS: ATORVASTATIN 10 MG TAB PO SCH (22:15)
[2020-06-23] MEDS: LEVOTHYROXINE SODIUM 50 MCG TABLET PO SCH (05:50)
[2020-06-23] MEDS: LEVOTHYROXINE SODIUM 200 MCG TABLET PO SCH (05:50)
[2020-06-23 07:18] LABS: BUN Creatinine Ratio 19.8 (10-20); Calcium 9.6 mg/dl (8.5-10.1); Creatinine Clr Calc Pharmacy 59.9 ml/min; Est GFR (African American) 48.7; Potassium 3.8 mmol/L (3.5-5.1)
[2020-06-23] MEDS: INSULIN ASPART 100 UNITS/ML 3 ML PEN SC SCH (08:02)
[2020-06-23] MEDS: ASPIRIN 81 MG ECTAB PO SCH (08:03)
[2020-06-23] MEDS: OXYBUTYNIN CHLORIDE XL 5 MG TABCR PO SCH (08:03)
[2020-06-23] MEDS: allopurinoL 300 MG TAB PO SCH (08:03)
[2020-06-23] MEDS: CEROVITE ADV FORMULA TAB PO SCH (08:03)
[2020-06-23] MEDS: buPROPion XL 150 MG TABCR PO SCH (08:03)
[2020-06-23] MEDS: METOPROLOL SUCC 25MG EXT REL TAB PO SCH (08:03)
[2020-06-23] MEDS: FUROSEMIDE 80 MG TAB PO SCH (08:03)
[2020-06-23] MEDS: DULoxetine HCL 60 MG CAP PO SCH (08:03)
[2020-06-23] MEDS: ERYTHROMYCIN OP OINT 5 MG/GM 3.5 GM TUBE OPL SCH (08:04)
[2020-06-23] MEDS: EUCERIN CR 120 GM JAR EXT SCH (08:04)
[2020-06-23] MEDS: GABAPENTIN 100 MG CAP PO SCH (08:04)
[2020-06-23] MEDS: PANTOprazole 40 MG TAB PO SCH (08:04)
[2020-06-23] MEDS: OMEGA-3 (PURIFIED FISH OIL) 1 GM CAP PO SCH (08:04)
[2020-06-23] MEDS: DICLOFENAC SOD 1% GEL 100 GM TUBE EXT SCH (08:05)
[2020-06-23] MEDS: cefTRIAXone SODIUM 2,000 MG in DEXTROSE 5% 50 ML IV SCH (08:09)
[2020-06-23] MEDS: traMADol HCL 50 MG TABLET PO PRN (08:45)
--- NOTE | 2020-06-23 09:48 | Pharmacy Report ---
Pharmacy Glycemic Short Note 2 - Date of Service June 23, 2020 - Glycemic Short BSG Results (Last 24 hours): 06/22/20 06/22/20 06/22/20 11:40 16:16 20:43 Glucose POC Glucose 300 H 276 H 167 H 06/22/20 06/23/20 06/23/20 22:53 06:33 07:34 Glucose 137 H POC Glucose 103 H 166 H OUTPATIENT ANTIDIABETIC REGIMEN: * U-500 Insulin pump ASSESSMENT: 06/23: * Patient received total of 229 units of insulin yesterday: 140 units total of U-500 with meals (60 + 40 + 40) which is acting as the basal coverage and additional 89 units of bolus Novolog. * Fasting BSG this AM was 137 mg/dl showing good control on U-500 insulin. * Post-prandial BSGs yesterday were elevated yesterday but at HS BSG came down to 167 mg/dl. * Patient could use more than 140 units of U-500. * Discussed with Dr. Mike. [facility] for diabetes management recommends 150 units of U-500 with breakfast, 110 units with lunch and 80 units with dinner. Additionally U-500 insulin sliding scale at meals and HS with CF of 1:25 for BSG over 150 mg/dl. * Discharge recommendations below. 06/21: * Patient received total of 209 units of basal + bolus insulin. In addition patient an estimated average of 110 units of insulin via the insulin drip over the last 12 hours. * Yesterday, basal insulin with NPH 120 units total was administered. * Fasting BSG this AM was only slightly elevated at 165 mg/dl, however post- prandial BSG has been trending up. * NPH was changed to U-500 insulin since patient had been using this in his pump at home. This may help with transitioning back to his pump closer to discharge as well. * Heparin drip was d/c'd this AM. I expected this d/c to have improved BSGs today but does not seem to have made a significant difference. * Since patient received over 250 units of insulin yesterday with basal + bolus + IV, I ordered U-500 insulin TID today with meals to equal total of 180 units of insulin. Goal is to try to wean off IV Insulin drip by tomorrow morning. PLAN FOR INPATIENT GLYCEMIC CONTROL: * Basal insulin * Humulin U-500 60 units SQ QAM + 60 units with lunch + 40 units with dinner. * Bolus insulin * NovoLog per scale ACHS or Q6hrs while NPO * Goal Range: Low 110 mg/dL - High 140 mg/dL * Correction factor: 1:8 * Nutritional / Prandial insulin per carb ratio of 1 unit per 3 grams CHO consumed PLAN FOR DISCHARGE: * HbA1c 12.1 % 06/18/20 * Patient received U-500 60 units this AM today. * Using U-100 syringes, recommend using U-500 insulin, 20 units with breakfast (starting tomorrow), 16 units with lunch and 10 units with dinner. * True insulin doses are five times the doses listed above since the U-500 insulin is five times more concentrated. * Recommend additional U-500 insulin sliding scale with meals and bedtime with a Correction factor of 1 unit for every 50 mg/dl of blood sugar above 150 mg/dl. He will be using 1 unit on the U-100 syringe so true dose would be 5 times more. * Spoke to patient over the phone and he said that he has only used U-500 insulin for sliding scale as well. He understands that he is supposed to use an additional 1 unit for every increase of 50 mg/dl in blood sugar above 150 mg/dl. * Check blood sugars before meals and at bedtime.
--- NOTE | 2020-06-23 10:45 | Hospitalist Progress Note ---
Date of Service June 23, 2020 Assessment & Plan (1) Hyperglycemic crisis in diabetes mellitus: History of DM type 2 complicated by CKD, recently managed with insulin pump. Recent insulin pump malfunction and possible dietary noncompliance. Blood sugars > 400 at home. Random blood sugar 611 in ED. Hgb A1c = 12.1. Received IV insulin and IV fluids. Pharmacy consulted for glycemic management. Weaned off insulin drip. FBS this morning = 166. Probably best to DC on SQ injections, not on insulin pump. Patient has recently used U-500 regimen at home. Discharge regimen coordinated with Glycemic Pharmacist. Will need ongoing support as outpatient with primary care and [facility]. (2) Acute kidney injury: CKD III with baseline creatinine around 1.5 - 1.6. Creatinine at time of admission 2.06. ALMA ROSA secondary to hyperglycemia. Received IV fluids. Creatinine today = 1.65. Follow. (3) Urinary tract infection: Admission UA showed WBC's and + leukocyte esterase. Afebrile. No leukocytosis. Procalcitonin normal. Received empiric therapy with cefepime. Urine culture growing E coli, resistant to ampicillin and TMP/sulfa, sensitive to cephalosporins and quinolones. Chronic urinary incontinence; consider chronic prostatitis. Not ideal candidate for quinolones- underlying heart disease and QTc 462 msec. TMP / sulfa not good option due to CKD. Changed Rx to IV ceftriaxone during hospital stay, then discharged on cephalexin to complete course of therapy. Given supplies per pt's request to try condom cath at home. Consider outpatient referral to Urology. (4) Abnormal chest x-ray: Portable chest x-ray showed: "Right infrahilar opacity which could reflect atelectasis or an infectious process. Radiographic follow-up is recommended." Will ask PCP to check follow-up imaging as outpatient (PA & LAT CXR vs CT) (5) Chronic diastolic CHF (congestive heart failure): Compensated. Continue furosemide. (6) Paroxysmal atrial fibrillation: Continue metoprolol, digoxin, warfarin. INR subtherapeutic (1.3) at time of admission. Received IV heparin while warfarin adjusted. INR today 2.4. INR's may run higher because of antibiotic therapy. Discharge on usual warfarin dose of 4 mg daily with ongoing management by [facility]. (7) Hypertension: Continue metoprolol. (8) COPD, moderate: Pulmonary status stable. (9) Hypothyroidism: TSH 0.512. Continue levothyroxine. (10) Morbid obesity: Wt 139 kg, BMI 45. Heart healthy diet. (11) DVT prophylaxis: On warfarin with subtherapeutic INR at time of admission. Received IV heparin. INR now therapeutic. Continue wafarin. (12) Discharge planning issues: Discharge to home. Internal Medicine follow-up with Dr. Jara. Diabetes management with [facility]. Admission and Anticipated Discharge Date Admission Date: June 19, 2020 Subjective Recheck for hyperglycemia, UTI, and other problems. Patient seen in their room around 1040. Blood sugars improved. No fever. No flank pain. Using condom cath. Ambulating. Hopes to be discharged today- his daughter is getting (small ceremony with precautions). Review of Systems: Constitutional- no fever. Cardiac- as noted above. Pulmonary- no cough or SOB. GI- no nausea, vomiting, diarrhea, melena, hematochezia. - as noted above. Otherwise, as noted above. Physical Exam Constitutional: no acute distress Eyes: + anicteric sclerae Respiratory: normal respiratory effort, lungs clear to auscultation Cardiovascular: Rate/Rhythm: regular rate and regular rhythm Vessels: no JVD Extremities: + edema (1-2+ pretibial); no calf tenderness Gastrointestinal (Abdomen): normal bowel sounds, soft, nontender, no hepatosplenomegaly Musculoskeletal: Extremities: no cyanosis Skin: no rashes, warm and dry Psychiatric: Orientation: alert and oriented x 3 Results & Data Results & Data ([facility]) Vital Signs (Past 12 Hours) Vital Signs Temp Pulse Pulse Resp BP Pulse Ox 06/23/20 08:07 36.4 C L 106 H 16 99/68 L 99 06/23/20 07:24 95 H 06/23/20 04:25 36.9 C 54 L 18 123/81 97 06/23/20 01:36 70 06/22/20 23:49 36.4 C L 70 18 153/73 H 97 (1) Hypothyroidism Hypothyroidism type: unspecified Qualified Code(s): E03.9 - Hypothyroidism, unspecified (2) Hypertension Hypertension type: unspecified Qualified Code(s): I10 - Essential (primary) hypertension
--- NOTE | 2020-06-25 09:51 | Discharge Summary ---
Date of Service Date of Admission: 06/19/20 Date of Discharge: 06/23/20 Admission HPI Per Admitting Provider History obtained from patient, family, and records. Patient is a fair historian. Medical history is significant for chronic diastolic heart failure (EF 55 to 60%, TTE 2019), SSS sp PPM/PE on anticoagulation, COPD/ILD as per records, SALAS on CPAP, DM2 on insulin pump, hypothyroidism, CRI (baseline creatinine 1.5 to 2.2), chronic anemia (baseline hemoglobin 13), history of MRSA as per records. Last confinement February 2020 for chest pain concerning for unstable angina. Patient family worried the last few weeks about progressive inability of patient to care for himself at home. Recurrent falls as per family. Missing medications. Noncompliance with diabetic diet as per daughter. Patient seen at [facility] last week for diabetes control. Glycemic control noted to be unstable as per documentation. Patient insulin pump not functioning correctly due to broken O-ring related to [employer] pump being recalled. Patient advised to call [employer] for new pump. BSGs noted to be high as 400-500s at home the last few days. Patient new insulin pump utilized yesterday. BSGs still uncontrolled despite boluses. Patient not feeling well, dropping objects. Left eye discharge. No fever, no chills, no headaches, no syncope. Patient denies chest pain, S OB, cough. Denies abdominal pain, diarrhea. Patient complaining of dysuria symptoms. Patient family urged patient to go to ER for evaluation. Patient hesitant to proceed to ER fearing SNF placement once admitted as per daughter. IV insulin initiated for hyperglycemia in the 600s. Patient insulin pump turned off after IV insulin protocol initiated. IV insulin subsequently stopped with BSG 140s 4 hours after IV insulin initiated. Principal Diagnosis hyperglycemic crisis / DM type 2 with complications OTHER ACUTE / NEW DIAGNOSES: urinary tract infection abnormal chest x-ray Discharge Data Allergies Allergy/AdvReac Type Severity Reaction Status Date / Time No Known Drug Allergies Allergy Unknown Verified 06/19/20 01:43 Consultations 06/19/20 00:20 ED Decision to Admit Stat 06/19/20 04:08 Consult Case Management - Discharge Planning Routine Ordered Studies 06/18/20 20:56 CT head/brain wo con Urgent Diabetes Follow up Diabetes Follow-up Needed for HgbA1c >9% Hospital Course (1) Hyperglycemic crisis in diabetes mellitus: History of DM type 2 complicated by CKD, recently managed with insulin pump. Recent insulin pump malfunction and possible dietary noncompliance. Blood sugars > 400 at home. Random blood sugar 611 in ED. Hgb A1c = 12.1. Received IV insulin and IV fluids. Pharmacy consulted for glycemic management. Weaned off insulin drip. FBS day of discharge was 166. [place] best to discharge on SQ injections in short term, not on insulin pump. Patient has recently used U-500 SQ regimen at home. Discharge regimen coordinated with Glycemic Pharmacist. Will need ongoing support as outpatient with primary care and [facility]. (2) Acute kidney injury: CKD III with baseline creatinine around 1.5 - 1.6. Creatinine at time of admission 2.06. ALMA ROSA secondary to hyperglycemia. Received IV fluids. Creatinine day of discharge was 1.65. Follow. (3) Urinary tract infection: Admission UA showed WBC's and + leukocyte esterase. Afebrile. No leukocytosis. Procalcitonin normal. Received empiric therapy with cefepime. Urine culture growing E coli, resistant to ampicillin and TMP/sulfa, sensitive to cephalosporins and quinolones. Chronic urinary incontinence; consider chronic prostatitis. Not ideal candidate for quinolones- underlying heart disease and QTc 462 msec. TMP / sulfa not good option due to CKD. Changed Rx to IV ceftriaxone during hospital stay, then discharged on cephalexin to complete course of therapy. Given supplies per pt's request to try condom cath at home. Consider outpatient referral to Urology. (4) Abnormal chest x-ray: Portable chest x-ray showed: "Right infrahilar opacity which could reflect atelectasis or an infectious process. Radiographic follow-up is recommended." Will ask PCP to check follow-up imaging as outpatient (PA & LAT CXR vs CT) (5) Chronic diastolic CHF (congestive heart failure): Compensated. Continue furosemide. (6) Paroxysmal atrial fibrillation: Continue metoprolol, digoxin, warfarin. INR subtherapeutic (1.3) at time of admission. Received IV heparin while warfarin adjusted. INR day of discharge was 2.4. INR's may run higher because of antibiotic therapy. Discharge on usual warfarin dose of 4 mg daily with ongoing management by [facility]. (7) Hypertension: Continue metoprolol. (8) COPD, moderate: Pulmonary status stable. (9) Hypothyroidism: TSH 0.512. Continue levothyroxine. (10) Morbid obesity: Wt 139 kg, BMI 45. Heart healthy diet. (11) DVT prophylaxis: On warfarin with subtherapeutic INR at time of admission. Received IV heparin until INR therapeutic. (12) Discharge planning issues: Discharged to home. Internal Medicine follow-up with Dr. Jara. Diabetes management with [facility]. Total Time Total Time Spent Total Time Spent (In Minutes): 50 Discharge Plan Discharge Items Patient Disposition: Home - Home Health Services Reason For Visit: high blood sugars Discharge Diagnosis: high blood sugars bladder infection Activity: Resume your previous activity Non-emergency contact: Primary Care Provider and Hospitalist Call non-emergency contact if: you have any medication questions and your symptoms worsen Follow-up/Referrals: Scotty Jara DO [Primary Care Provider] - (07/03/2020 12:00 PM cSotty Jara DO) Diet: Carb Consistent or DM2 and Heart Healthy Addtl Attending Provider Instructions: MEDICATION CHANGES: cephalexin (Keflex) 500 mg 4 time a day for bladder infection Do not use your insulin pump until further notice. Check blood sugars before meals and at bedtime. Instructions for U-500 insulin: Remember that U-500 is 5 times stronger than most other insulins. breakfast 20 units (using U-100 syringe) equivalent to 100 actual units of insulin lunch 16 units (using U-100 syringe) equivalent to 80 actual units of insulin supper 10 units (using U-100 syringe) equivalent to 50 actual units of insulin Extra amount of U-500 insulin to be taken if blood sugar is above 150 at meal time or bedtime: 1 unit for every 50 points above 150 blood sugar extra U-500 using U-100 syringe equivalent actual dose of insulin under 151 none none 151-200 1 unit 5 units 201-250 2 units 10 units 251-300 3 units 15 units above 300 4 units 20 units SUMMARY OF TEST RESULTS: Blood sugar was 611 when you came to Emergency Department. Hgb A1c was 12.1. Fasting blood sugar day of discharge was 166. Urine culture showed bladder infection. Chest x-ray showed a possible abnormality (but may be nothing). Please ask Dr. Jara to chest follow-up x-ray. INR day of discharge was 2.4. RECOMMENDATIONS FOR FOLLOW-UP: Continue working with Sindy at [facility] and [facility] for better control of your diabetes. Please ask Dr. Jara about a Urology referral for your bladder problem. Ongoing warfarin management with [facility]. You should have an INR within 1 week. They will contact you. Please be careful not to get COVID-19: wear a mask wash your hands social distancing OTHER INSTRUCTIONS: Seek medical attention if you have: * temperature above 101 * chest pain or trouble breathing * abdominal pain, nausea, vomiting * diarrhea, dark stools or bloody stools * any unanswered questions or concerns Call 911 if symptoms are severe. Please take good care of yourself. Call if you have any questions or problems. You can reach a [facility] hospitalist on duty at [facility] 24 hours a day by calling [phone]. My cell # is [phone]. Pending Studies at Discharge: No Stand-Alone Forms: My [facility], Smoking Cessation Medications and DC Order Prescriptions: New cephalexin 500 mg capsule 500 mg PO QID 10 Days Qty: 40 RF: 0 Continued aspirin [Adult Low Dose Aspirin] 81 mg tablet,delayed release (DR/EC) 81 mg PO QAM RF: 0 metolazone 2.5 mg tablet 2.5 mg PO WE RF: 0 duloxetine 60 mg capsule,delayed release(DR/EC) 60 mg PO QAM RF: 0 cholecalciferol (vitamin D3) 2,000 unit capsule 2,000 units PO QAM RF: 0 oxybutynin chloride [Ditropan XL] 10 mg tablet extended release 24hr 10 mg PO DAILY RF: 0 spironolactone 25 mg Tablet 25 mg PO QAM Qty: 0 RF: 0 digoxin 125 mcg Tablet 0.125 mg PO QPM Qty: 0 RF: 0 levothyroxine 200 mcg tablet 200 mcg PO QAM Qty: 0 RF: 0 furosemide 80 mg tablet 80 mg PO BID Qty: 0 RF: 0 colchicine 0.6 mg capsule 0.6 mg PO .qod Qty: 0 RF: 0 allopurinol 300 mg tablet 300 mg PO QAM RF: 0 omeprazole 20 mg capsule,delayed release(DR/EC) 20 mg PO QAM RF: 0 atorvastatin 20 mg tablet 10 mg PO HS RF: 0 gabapentin 300 mg capsule 300 mg PO TID RF: 0 acetaminophen 500 mg capsule 1,000 mg PO Q6H PRN (Reason: Pain) RF: 0 meclizine 12.5 mg tablet 12.5 mg PO TID PRN (Reason: headaches) RF: 0 albuterol sulfate 90 mcg/actuation HFA aerosol inhaler 2 puffs INH QID PRN (Reason: Shortness Of Breath Or Wheezing) RF: 0 triamcinolone acetonide 0.1 % cream 1 applic topical BID RF: 0 levothyroxine 50 mcg tablet 50 mcg PO QAM RF: 0 sennosides [senna] 8.6 mg Tablet 8.6 mg PO BID PRN (Reason: Constipation) RF: 0 magnesium oxide 400 mg magnesium Tablet 400 mg PO QAM RF: 0 tramadol 50 mg Tablet 50 mg PO BID PRN (Reason: Pain, Severe) RF: 0 metoprolol succinate 100 mg tablet extended release 24 hr 150 mg PO BID RF: 0 warfarin 4 mg tablet See Rx Instructions .ROUTE .COMPLEX RF: 0 miconazole nitrate [Antifungal Cream (miconazole)] 2 % Cream 1 applic TOPICAL BID PRN (Reason: yeast) RF: 0 [facility] 250-2.5-0.5 mg Capsule 1 cap PO BID RF: 0 insulin regular hum U-500 conc 500 unit/mL Solution See Rx Instructions .ROUTE .COMPLEX RF: 0 warfarin 4 mg tablet 4 mg PO MOTUWETHFRSA RF: 0 bupropion HCl 150 mg tablet extended release 24 hr 150 mg PO QAM RF: 0 potassium chloride [Klor-Con M20] 20 mEq tablet,ER particles/crystals 20 meq PO BIDM RF: 0 nitroglycerin 0.4 mg tablet, sublingual 0.4 mg sublingual UD PRN (Reason: Chest Pain) RF: 0 diclofenac sodium 1 % Gel 4 g TOPICAL BID RF: 0 multivitamin with minerals [Multiple Vitamin-Minerals] Tablet 1 tab PO DAILY RF: 0 Discharge Orders: Discharge Order (Routine); Ordered 06/23/20 Ordered By: Janes Mike Admission Data Admit Date/Time: 06/19/20 02:42 Attending Provider: Janes Mike Admit Provider: Rick Ochoa Primary Care Provider: Scotty Jara Other Providers: Rick Ochoa ; [place] ; Dae Leone Other Interventions: Discharge Summary Assessment (RN) Last Done: 06/23/20 11:44
--- NOTE | 2020-07-03 06:30 | Coding Query ---
To promote full compliance with coding requirements relating to patient care, provider participation is requested in all cases of automotive parts coordinator uncertainty. Please assist us with the question(s) below: Coding Question(s): The diagnosis(es) below was documented in the progress notes until June 20, then subsequently fell off all further documentation. Please indicate if it was still a possible diagnosis at the time of discharge or ruled out. Physician's Response(s): Possible HHS ( x ) Diagnosed and POA ( ) Diagnosed and not POA ( ) Ruled out ( ) Other (please specify) Thank you for your time and happy holidays. Maricruz Cha, VANNESA, WAX PUMPER I was using the diagnoses of hyperglycemic crisis which includes HHS. Thanks. ANDREW KEBEDE
== END 2020-06-23 12:19 | disposition home health service (06) | DRG 919 ==
LOC: ED 19:51 → SUATTDRO 06-19 02:42 → 2W 06-19 02:42

== ENCOUNTER 2020-07-16 18:20 | Inpatient (IN) ==
[2020-07-16] MEDS ORDERED: SODIUM CHLORIDE 0.9% 1000ML 1,000 ML IV SCH (19:00)
--- NOTE | 2020-07-16 19:09 | XRay Report ---
XR chest 1V portable CLINICAL HISTORY: weakness COMPARISON STUDY: 06/18/2020 FINDINGS: The heart is mildly enlarged. There is no overt failure. There is no focal pulmonary consol idation. There is mild linear subsegmental atelectasis/scarring at the right lung base. Is a prominen t left cardiophrenic angle fat pad. There is a left subclavian dual-chamber central venous pacemaker. [ IMPRESSION: No active disease in the chest. ACT 112: Negative or not required by law. Electronically signed by: Todd Flowers M.D. 07/16/2020 7:08 PM
[2020-07-16 20:14] LABS: Basophils # (auto) 0.04 K/uL (0-0.2); Basophils % (auto) 0.3 %; Eosinophils # (auto) 0.22 K/uL (0-0.5); Eosinophils % (auto) 1.8 %; Hematocrit (blood only) 45.2 % (42-52); Hemoglobin 15.9 g/dL (14.0-18.0); Immature Granulocytes # (auto) 0.09 K/uL (0.00-0.02); Immature Granulocytes % (auto) 0.7 %; Lymphocytes # (auto) 2.72 K/uL (1.2-3.4); Lymphocytes % (auto) 21.7 %; Mean Corpuscular Hemoglobin 30.3 pg (25-34); Mean Corpuscular Hgb Conc 35.2 g/dL (32-36); Mean Corpuscular Volume 86.1 fL (80-100); Mean Platelet Volume 11.8 fL (7.4-10.4); Monocytes # (auto) 1.01 K/uL (0.11-0.59); Neutrophils # (auto) 8.48 K/uL (1.4-6.5); Neutrophils % (auto) 67.5 %; Platelet Count 199 K/uL (130-400); RDW Coefficient of Variation 13.8 % (11.5-14.5); RDW Standard Deviation 42.9 fL (36.4-46.3); Red Blood Count 5.25 M/uL (4.7-6.1); White Blood Count 12.56 K/uL (4.8-10.8)
[2020-07-16 20:23] LABS: INR 1.1 (0.9-1.1); Prothrombin Time 11.5 Seconds (9.0-12.0)
[2020-07-16 20:52] LABS: Alanine Aminotransferase 43 U/L (12-78); Albumin Level 3.9 gm/dl (3.4-5.0); Aspartate Aminotransferase 55 U/L (15-37)
[2020-07-16 20:53] LABS: Albumin Globulin Ratio 0.8 (0.9-2); Alkaline Phosphatase 169 U/L (45-117); BUN Creatinine Ratio 24.9 (10-20); Bilirubin,Total 1.3 mg/dl (0.2-1); Blood Urea Nitrogen 66 mg/dl (7-18); Calcium 10.2 mg/dl (8.5-10.1); Carbon Dioxide 34 mmol/L (21-32); Chloride 90 mmol/L (98-107); Creatine Kinase 55 U/L (39-308); Est GFR (African American) 27.2; Est GFR (Non-African American) 23.5; Globulin 5.2 gm/dl (2.5-4.0); Glucose 48 mg/dl (70-99); Magnesium 3.4 mg/dl (1.8-2.4); Potassium 3.6 mmol/L (3.5-5.1); Sodium 128 mmol/L (136-145); Thyroid Stimulating Hormone 0.518 uIu/ml (0.300-4.500); Total Protein 9.1 gm/dl (6.4-8.2); Troponin I < 0.015 ng/ml (0-0.045)
[2020-07-16] MEDS ORDERED: SODIUM CHLORIDE 0.9% 1000ML 500 ML IV ONE (21:04)
[2020-07-16] MEDS ORDERED: DEXTROSE 50% 50 ML SYRINGE IV ONE ×2 (21:07→23:54)
[2020-07-16] MEDS ORDERED: CIPROFLOXACIN HCL 0.3% OP SOLN 2.5 ML BTL OPL ONE (22:21)
[2020-07-16 22:29] LABS: Appearance Urine Cloudy (Clear); Bacteria Urine Automated Negative (Negative); Bilirubin Urine Negative (Negative); Blood Urine Negative (Negative); Color Urine Dark Yellow; Epithelial Cell Urine Auto 20-30 /lpf (0-5); Glucose Urine UA 3+ (Negative); Ketones Urine Trace (Negative); Leukocyte Esterase Urine Negative (Negative); Nitrite Urine Negative (Negative); Protein Urine 1+ (Negative); RBC Urine Automated 0-4 /hpf (0-4); Specific Gravity Urine 1.023 (1.000-1.030); Urobilinogen Urine Negative (Negative)
[2020-07-16 22:41] LABS: Cast Urine Automated >30 /lpf (0-5)
[2020-07-16 23:47] LABS: Base Excess ABG 6.8 mEq/L (-9-1.8); HCO3 ABG 32 mmol/L (19-24); Oxygen Saturation ABG 97.3 % (90-95); PCO2 ABG 49 mmHg (35-46); PO2 ABG 94 mmHg (80-95); pH ABG 7.44 (7.35-7.45)
[2020-07-16 23:48] LABS: Allen Test Pos (Pos)
[2020-07-16 23:51] LABS: BUN Creatinine Ratio 25.6 (10-20); Est GFR (African American) 27.6; Est GFR (Non-African American) 23.8; Potassium 3.8 mmol/L (3.5-5.1)
[2020-07-16] MEDS ORDERED: DEXTROSE 50% 50 ML SYRINGE IV STA (23:57)
--- NOTE | 2020-07-17 00:59 | History & Physical Report ---
Date of Service July 17, 2020 Assessment & Plan (1) Encephalopathy: Multifactorial : Hypoglycemia ? 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 Medication compliance COPD/ILD as per records, pulmonary status at baseline hypothyroidism, euthyroid as of today's TSH chronic anemia, hemoglobin better than baseline likely secondary to hemoconcentration Recurrent falls Medical telemetry Hold insulin pump D5 IVF if with persistent hypoglycemia Pharmacy glycemic control consult once BSGs within normal range Monitor creatinine response to IVF Appropriate to hold home diuretics for now until patient euvolemic Appropriate to hold home neuropsychotropic meds until patient awake PT OT eval Social service RE discharge planning DVT prophylaxis. IV heparin-Coumadin bridge therapy INR goal between 2 and 3 Full code Patient's daughter requesting updates from providers. Ms. Bing Andujar, contact #[phone]. Patient daughter requesting to be allowed to visit patient with current hospital COVID-19 restrictions so she can explain to patient how unsafe it is for him to return to independent living given recurrent admissions and recurrent falls at h ome. Text document was generated using [employer] voice recognition software. It may contain grammatical or spelling errors. Kindly contact undersigned for clarification of any documentation item in question. History of Present Illness Chief Complaint: Fall at home as per records Primary Care Provider: Scotty Jara, History obtained from family, and records. Patient is a fair historian. Medical history is significant for chronic diastolic heart failure (EF 55 to 60%, TTE 2019), SSS sp PPM/PE on anticoagulation, COPD/ILD as per records, SALAS on CPAP, DM2 on insulin pump, hypothyroidism, CRI (baseline creatinine 1.5 to 2.2), chronic anemia (baseline hemoglobin 13), history of MRSA as per records. Last confinement June 2020 for hyperglycemic crisis and UTI. Occupational Therapy recommended rehab but patient returned home following confinement. Yesterday, patient found by home health nurse on the floor. Patient felt lightheaded prior to falling down as per account. Some bruising noted. Legs a little weak. Patient denies syncope. BSG noted to be 600. Patient self administered 25 units of IV insulin through insulin pump. [facility] contacted patient's daughter and recommended ER evaluation. BSG 125 when patient left home. Decreased responsiveness and persistent hypoglycemia at the ER. MEDICAL HISTORY: As above. SURGERIES: Knee surgery, hernia repair, urologic procedures, cataract surgery, entropion surgery, Carpal tunnel surgery, cholecystectomy, lung surgery FAMILY HISTORY: Heart disease. PERSONAL AND SOCIAL HISTORY: Nonsmoker. No chronic intake of alcoholic beverages. 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 Allergies Allergy/AdvReac Type Severity Reaction Status Date / Time No Known Drug Allergies Allergy Unknown Verified 07/16/20 21:11 Home Medications Medication Instructions Recorded Confirmed Type digoxin 0.125 mg PO QPM #0 07/13/16 07/16/20 History spironolactone 25 mg PO QAM #0 07/13/16 07/16/20 History aspirin 81 mg tablet,delayed 81 mg PO QAM 05/11/18 07/16/20 History release metolazone 2.5 mg tablet 2.5 mg PO WK tab 05/11/18 07/16/20 History levothyroxine 50 mcg PO QAM 06/24/18 07/16/20 History duloxetine 60 mg capsule,delayed 60 mg PO QAM 08/31/18 07/16/20 History release magnesium oxide 400 mg PO QAM 04/26/19 07/16/20 History cholecalciferol (vitamin D3) 50 2,000 units PO QAM 05/13/19 07/16/20 History mcg (2,000 unit) capsule allopurinol 300 mg tablet 300 mg PO QAM 05/25/19 07/16/20 History levothyroxine 200 mcg tablet 200 mcg PO QAM #0 tab 05/25/19 07/16/20 History omeprazole 20 mg capsule,delayed 20 mg PO QAM 05/25/19 07/16/20 History release tramadol 50 mg PO BID PRN 05/30/19 07/16/20 History potassium chloride [Klor-Con M20] 20 meq PO BIDM 07/12/19 07/16/20 History furosemide 80 mg tablet 80 mg PO BID #0 11/23/19 07/16/20 History acetaminophen 500 mg capsule 1,000 mg PO Q6H PRN 12/14/19 07/16/20 History albuterol sulfate 90 mcg/actuation 2 puffs INH QID PRN gm 12/14/19 07/16/20 History aerosol inhaler atorvastatin 20 mg tablet 10 mg PO HS 12/14/19 07/16/20 History gabapentin 300 mg capsule 300 mg PO TID 12/14/19 07/16/20 History meclizine 12.5 mg tablet 12.5 mg PO TID PRN 12/14/19 07/16/20 History triamcinolone acetonide 0.1 % 1 applic TOPICAL BID 12/14/19 07/16/20 History topical cream [facility] 1 cap PO BID 02/13/20 07/16/20 History bupropion HCl 150 mg PO QAM 02/13/20 07/16/20 History insulin regular hum U-500 conc 0 unit CONTINUOUS SUBCUTANEOUS 02/13/20 07/16/20 History INFUSION CONTINOUS metoprolol succinate 150 mg PO BID 02/13/20 07/16/20 History warfarin 2 mg PO WK 02/13/20 07/16/20 History warfarin 4 mg PO 6XWK 02/13/20 07/16/20 History colchicine 0.6 mg capsule 0.6 mg PO Q OTHER DAY #0 cap 03/02/20 07/16/20 History oxybutynin chloride 10 mg 10 mg PO DAILY 03/29/20 07/16/20 History tablet,extended release 24 hr diclofenac sodium 4 g TOPICAL BID PRN 06/19/20 07/16/20 History multivitamin with minerals 1 tab PO DAILY 06/19/20 07/16/20 History [Multiple Vitamin-Minerals] nitroglycerin 0.4 mg SUBLINGUAL UD PRN 06/19/20 07/16/20 History sennosides-docusate sodium [Senna 1 tab-cap PO BID PRN 07/16/20 07/16/20 History with Docusate Sodium] Past Med/Surg History Medical History (Updated 07/17/20 @ 13:44 by Rick Ochoa MD) Abnormal chest x-ray 06/18/20 right hilar opacity, f/u recommended Arthritis Atrial fibrillation paroxysmal Atrial flutter Bifascicular block CAD (coronary artery disease) Cardiomyopathy Chronic anticoagulation Chronic diastolic CHF (congestive heart failure) Chronic venous insufficiency CKD (chronic kidney disease) stage 3, GFR 30-59 ml/min Claustrophobia Closed fracture of thyroid cartilage COPD, moderate Depression Diabetes mellitus, type 2 insulin pump Fatty liver Gout Hyperlipidemia Hypertension Hypothyroidism Iatrogenic pulmonary embolism Interstitial lung disease Morbid obesity MRSA infection Nephrolithiasis Nocturnal hypoxemia SALAS (obstructive sleep apnea) Osteoarthritis Paroxysmal atrial fibrillation Prolonged QT interval Pulmonary embolism B/L- 5+ years ago Sarcoidosis possible- evaluated by pulmonary; felt no active sarcoidosis and would not merit steroid therapy given weight/diabetic state. 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 "prior EF of 25% while in aflutter, subsequently normal in NSR" Surgical History H/O cardiac radiofrequency ablation H/O prior ablation treatment History of arthroscopic knee surgery History of bronchoscopy History of cataract surgery local anesthesia only per pt History of cholecystectomy History of extraction of renal calculus History of lung surgery thoracoscopy, right VATS, wedge resection History of umbilical hernia repair Hx of carpal tunnel repair Pacemaker Implanted 02/2017 secondary to Sinus node dysfunction/tachy sherry syndrome/3rd degree AVB [employer] Pacer check 12/24/17 Status post incision and drainage Family History Mother Cancer Social History Smoking Status: Unknown if ever smoked Second Hand Exposure: No; Hx Alcohol Use: No Hx Substance Use: No Preferred Language: [place] Communication Ability: Effective Visual Impairment: No Limitations Hearing Ability: Normal Supervisor Of Guidance And Testing Required: No Beliefs That Will Affect Care: None marital status: Current Living Situation: Alone Current Living Situation Comment: [facility] current occupational status: retired How many Children do You have: 2 Other Information That Helps Us Care for You: No Feels Safe at Home: Yes Diet Comment: FLUID RESTRICTION during the past year weight has: other Assistive Devices: Glasses and Walker Review of Systems Review of Systems: Could not be reliably obtained Physical Exam Physical Exam: GENERAL: unresponsive, morbidly obese, no respiratory distress SKIN: Pallor , warm HEENT: Alopecia, pale palpebral conjunctivae, no ptosis, yellow discharge on left lower eyelid, dry buccal mucosa NECK : Supple, short neck, no tenderness CHEST : Decreased breath sounds , no tenderness HEART : RRR, no obvious murmurs ABDOMEN: distention, nontender EXTREMITIES : Bilateral LE swelling, no LE tenderness, no other conspicuous deformities noted NEUROLOGIC : Unresponsive, no facial asymmetry, mild hearing impairment, no other gross focality Results & Data Results & Data ([facility]) Vital Signs (Past 12 Hours) Vital Signs Temp Pulse Resp BP Pulse Ox 07/17/20 00:01 73 27 H 118/60 92 07/16/20 23:34 96 07/16/20 23:31 76 26 H 140/81 97 07/16/20 23:00 77 30 H 185/95 H 99 07/16/20 22:31 71 25 H 97 07/16/20 22:30 70 26 H 155/86 H 95 07/16/20 22:24 69 27 H 125/75 96 07/16/20 21:14 79 26 H 112/47 L 07/16/20 21:04 87 L 07/16/20 18:43 86 19 128/69 07/16/20 18:22 37.4 C 78 18 98/62 L 95 Laboratory Results Laboratory Results WBC 12.56 K/uL (4.8-10.8) H 07/16/20 19:58 RBC 5.25 M/uL (4.7-6.1) 07/16/20 19:58 Hgb 15.9 g/dL (14.0-18.0) 07/16/20 19:58 Hct 45.2 % (42-52) 07/16/20 19:58 MCV 86.1 fL (80-100) 07/16/20 19:58 MCH 30.3 pg (25-34) 07/16/20 19:58 MCHC 35.2 g/dL (32-36) 07/16/20 19:58 RDW Std Deviation 42.9 fL (36.4-46.3) 07/16/20 19:58 RDW Coeff of Baldo 13.8 % (11.5-14.5) 07/16/20 19:58 Plt Count 199 K/uL (130-400) 07/16/20 19:58 MPV 11.8 fL (7.4-10.4) H 07/16/20 19:58 Immature Gran % (Auto) 0.7 % 07/16/20 19:58 Neut % (Auto) 67.5 % 07/16/20 19:58 Lymph % (Auto) 21.7 % 07/16/20 19:58 Dorado % (Auto) 8.0 % 07/16/20 19:58 Eos % (Auto) 1.8 % 07/16/20 19:58 Baso % (Auto) 0.3 % 07/16/20 19:58 Neut # (Auto) 8.48 K/uL (1.4-6.5) H 07/16/20 19:58 Lymph # (Auto) 2.72 K/uL (1.2-3.4) 07/16/20 19:58 Dorado # (Auto) 1.01 K/uL (0.11-0.59) H 07/16/20 19:58 Eos # (Auto) 0.22 K/uL (0-0.5) 07/16/20 19:58 Baso # (Auto) 0.04 K/uL (0-0.2) 07/16/20 19:58 Immature Gran # (Auto) 0.09 K/uL (0.00-0.02) H 07/16/20 19:58 PT 11.5 Seconds (9.0-12.0) 07/16/20 19:58 INR 1.1 (0.9-1.1) 07/16/20 19:58 ABG pH 7.44 (7.35-7.45) 07/16/20 23:02 ABG pCO2 49 mmHg (35-46) H 07/16/20 23:02 ABG pO2 94 mmHg (80-95) 07/16/20 23:02 ABG HCO3 32 mmol/L (19-24) H 07/16/20 23:02 ABG O2 Saturation 97.3 % (90-95) H 07/16/20 23:02 ABG Base Excess 6.8 mEq/L (-9-1.8) H 07/16/20 23:02 Sam Test Pos (Pos) 07/16/20 23:02 Oxygen Given 3L 07/16/20 23:02 Sodium 132 mmol/L (136-145) L 07/16/20 23:10 Potassium 3.8 mmol/L (3.5-5.1) 07/16/20 23:10 Chloride 92 mmol/L (98-107) L 07/16/20 23:10 Carbon Dioxide 37 mmol/L (21-32) H 07/16/20 23:10 Anion Gap 3.0 (3-11) 07/16/20 23:10 BUN 68 mg/dl (7-18) H 07/16/20 23:10 Creatinine 2.64 mg/dl (0.6-1.4) H 07/16/20 23:10 Est Cr Clr Drug Dosing 38.0 ml/min 07/16/20 23:10 Est GFR ( Amer) 27.6 07/16/20 23:10 Est GFR (Non-Af Amer) 23.8 07/16/20 23:10 BUN/Creatinine Ratio 25.6 (10-20) H 07/16/20 23:10 Glucose 47 mg/dl (70-99) L* 07/16/20 23:10 POC Glucose 124 mg/dl (70-99) H 07/17/20 00:23 Osmolality 297 mOsm/kg (280-300) 07/16/20 23:10 Lactate 1.9 mmol/L (0.4-2.0) 07/16/20 20:00 Calcium 10.0 mg/dl (8.5-10.1) 07/16/20 23:10 Magnesium 3.4 mg/dl (1.8-2.4) H 07/16/20 19:58 Total Bilirubin 1.3 mg/dl (0.2-1) H 07/16/20 19:58 AST 55 U/L (15-37) H 07/16/20 19:58 ALT 43 U/L (12-78) 07/16/20 19:58 Alkaline Phosphatase 169 U/L (45-117) H 07/16/20 19:58 Ammonia 25.0 umol/L (11-32) 07/16/20 23:11 Total Creatine Kinase 55 U/L (39-308) 07/16/20 19:58 Troponin I < 0.015 ng/ml (0-0.045) 07/16/20 19:58 Total Protein 9.1 gm/dl (6.4-8.2) H 07/16/20 19:58 Albumin 3.9 gm/dl (3.4-5.0) 07/16/20 19:58 Globulin 5.2 gm/dl (2.5-4.0) H 07/16/20 19:58 Albumin/Globulin Ratio 0.8 (0.9-2) L 07/16/20 19:58 TSH 0.518 uIu/ml (0.300-4.500) 07/16/20 19:58 Urine Color Dark Yellow 07/16/20 22:15 Urine Appearance Cloudy (Clear) A 07/16/20 22:15 Urine pH 5.0 (4.5-7.5) 07/16/20 22:15 Ur Specific [place] 1.023 (1.000-1.030) 07/16/20 22:15 Urine Protein 1+ (Negative) H 07/16/20 22:15 Urine Glucose (UA) 3+ (Negative) H 07/16/20 22:15 Urine Ketones Trace (Negative) H 07/16/20 22:15 Urine Blood Negative (Negative) 07/16/20 22:15 Urine Nitrite Negative (Negative) 07/16/20 22:15 Urine Bilirubin Negative (Negative) 07/16/20 22:15 Urine Urobilinogen Negative (Negative) 07/16/20 22:15 Ur Leukocyte Esterase Negative (Negative) 07/16/20 22:15 Urine WBC (Auto) 1-5 /hpf (0-5) 07/16/20 22:15 Urine RBC (Auto) 0-4 /hpf (0-4) 07/16/20 22:15 U Hyaline Cast (Auto) >30 /lpf (0-5) H 07/16/20 22:15 U Epithel Cells (Auto) 20-30 /lpf (0-5) H 07/16/20 22:15 Urine Bacteria (Auto) Negative (Negative) 07/16/20 22:15 Urine Osmolality 385 mOsm/kg (500-800) L 07/16/20 22:15 Digoxin 0.6 ng/ml (0.8-2.0) L 07/16/20 23:10 SARS-CoV-2 Ag (Rapid) Negative (Negative) 07/16/[address] head: There is no hemorrhage, mass effect, or evidence of acute territorial ischemia by CT criteria. Chest x-ray : No active disease. EKG as per my interpretation : Rate 80, NSR, LAD, LAFB, RBBB, LVH, no ischemia
[2020-07-17] MEDS ORDERED: NALOXONE HCL 0.4 MG/1 ML VIAL/CARP IV STA (01:09)
[2020-07-17] MEDS: D5W AND LACTATED RINGERS 1,000 ML IV SCH ×2 (01:50→12:46)
[2020-07-17] MEDS ORDERED: GLUCOSE 10 TABS/TUBE PO PRN (06:00)
[2020-07-17] MEDS ORDERED: MECLIZINE 12.5 MG TAB PO PRN (06:00)
[2020-07-17] MEDS ORDERED: GLUCAGON FOR INJ 1 MG VIAL SQ PRN (06:00)
[2020-07-17] MEDS ORDERED: ACETAMINOPHEN 325 MG TAB PO PRN (06:00)
[2020-07-17] MEDS ORDERED: GLUCOSE 40% GEL 15 GM TUBE PO PRN (06:00)
[2020-07-17] MEDS ORDERED: DEXTROSE 50% 50 ML SYRINGE IV PRN (06:00)
[2020-07-17] MEDS ORDERED: DOCUSATE SODIUM/SENNA 50/8.6MG TAB PO PRN (06:00)
[2020-07-17] MEDS ORDERED: NITROGLYCERIN SL 0.4 MG/TAB TAB SL PRN (06:00)
[2020-07-17] MEDS: INSULIN ASPART 100 UNITS/ML 3 ML PEN SC SCH ×5 (06:28→21:31)
[2020-07-17] MEDS: LEVOTHYROXINE SODIUM 200 MCG TABLET PO SCH (06:31)
[2020-07-17] MEDS: LEVOTHYROXINE SODIUM 50 MCG TABLET PO SCH (06:31)
[2020-07-17 07:25] LABS: Basophils # (auto) 0.02 K/uL (0-0.2); Basophils % (auto) 0.2 %; Eosinophils # (auto) 0.08 K/uL (0-0.5); Hematocrit (blood only) 41.1 % (42-52); Hemoglobin 13.5 g/dL (14.0-18.0); Immature Granulocytes # (auto) 0.02 K/uL (0.00-0.02); Immature Granulocytes % (auto) 0.2 %; Lymphocytes # (auto) 1.74 K/uL (1.2-3.4); Lymphocytes % (auto) 20.8 %; Mean Corpuscular Hgb Conc 32.8 g/dL (32-36); Mean Corpuscular Volume 88.2 fL (80-100); Monocytes # (auto) 0.86 K/uL (0.11-0.59); Monocytes % (auto) 10.3 %; Neutrophils # (auto) 5.63 K/uL (1.4-6.5); Neutrophils % (auto) 67.5 %; Platelet Count 149 K/uL (130-400); Red Blood Count 4.66 M/uL (4.7-6.1); White Blood Count 8.35 K/uL (4.8-10.8)
--- NOTE | 2020-07-17 07:30 | CT Scan Report ---
CT SCAN OF THE BRAIN WITHOUT IV CONTRAST CLINICAL HISTORY: Falls. Dizziness. COMPARISON STUDY: CT of the brain dated 06/18/2020. TECHNIQUE: Unenhanced axial CT scan of the brain is performed from the vertex to the skull base. A do se lowering technique was utilized adhering to the principles of ALARA. The patient was scanned twice due to motion artifact. CT DOSE: 1911.58 mGy.cm FINDINGS: Brain parenchyma: There are age-related involutional changes noting minimal subcortical and perivent ricular microangiopathic change. There is no hemorrhage, mass effect, or evidence of acute territoria l ischemia by CT criteria. Yang-white matter differentiation is preserved. No extra-axial fluid colle ction is seen. Ventricles, sulci, cisterns: Prominent secondary to involutional change. Intracranial vasculature: There is atherosclerotic calcification of the cavernous carotid and vertebr al arteries. Calvarium: There is no depressed calvarial fracture. Sinuses and mastoids: The visualized paranasal sinuses are clear. The mastoid air cells are well pneu matized. Orbits: The bony orbits are grossly intact. There are bilateral ocular lens implants. IMPRESSION: There is no hemorrhage, mass effect, or evidence of acute territorial ischemia by CT ivet eason. ACT 112: Negative or not required by law. Electronically signed by: Anupam Gonzalez M.D. 07/17/2020 7:28 AM
[2020-07-17 07:39] LABS: Partial Thromboplastin Ratio 1.1; Partial Thromboplastin Time 29.3 Seconds (21.0-31.0)
[2020-07-17 07:43] LABS: INR 1.1 (0.9-1.1); Prothrombin Time 11.9 Seconds (9.0-12.0)
[2020-07-17] MEDS: HEPARIN SODIUM/DEXTROSE 25,000 UNITS/500 ML BAG IV SCH (07:53)
[2020-07-17 07:56] LABS: BUN Creatinine Ratio 26.7 (10-20); Calcium 9.7 mg/dl (8.5-10.1); Est GFR (African American) 29.3; Est GFR (Non-African American) 25.3; Potassium 3.7 mmol/L (3.5-5.1)
[2020-07-17] MEDS: PANTOprazole 40 MG TAB PO SCH (08:10)
[2020-07-17] MEDS: OMEGA-3 (PURIFIED FISH OIL) 1 GM CAP PO SCH ×2 (08:11→21:37)
[2020-07-17] MEDS: COLCHICINE 0.6 MG TAB PO SCH (08:11)
[2020-07-17] MEDS: CEROVITE ADV FORMULA TAB PO SCH (08:12)
[2020-07-17] MEDS: ASPIRIN 81 MG ECTAB PO SCH (08:13)
[2020-07-17] MEDS: METOPROLOL SUCC 50MG EXT REL TAB PO SCH ×2 (08:14→21:37)
[2020-07-17] MEDS: allopurinoL 300 MG TAB PO SCH (08:14)
[2020-07-17] MEDS: Heparin IV Low Dose *NO* Bolus IV SCH ×2 (08:33→08:34)
[2020-07-17] MEDS ORDERED: COLCHICINE 0.6 MG PO SCH (09:00)
--- NOTE | 2020-07-17 11:04 | Nephrology Consultation ---
Date of Consultation July 17, 2020 Assessment & Plan (1) Acute on chronic renal failure: presenting creatinine 2.7; down to 2.5 today; baseline about 1.5; as recently as 07/04 was 1.3. mild chemical abnormalities > elevated bicarb and BUN, lower Na; note that presenting BG was 48 after near 700 reading earlier in the day. No DKA. suspect markedly prerenal etiology here. Stage 2 nonoliguric ALMA ROSA. still orthostatic on VS, though not clear to me whether he would be this way as well on regular day; still w/ falls prior to admission and hyperglycemia, favor significant volume depletion -cont D5LR at 100 mL hourly -recheck bmp with next PTT and adjust fluids as chemistries dictate; pls call/TText me if questions as I am regional medical director this evening -daily bmp -agree with holding diuretics Present on Admission?: Yes (2) Encephalopathy: exceptionally labile BG > went from 685 on OP labs yesterday to 48 yesterday evening; also w/ polypharmacy. do not know this pt well but strikes me as at least mildly cognitively impaired at baseline - needs help w/ meds etc. also polypharmacy Present on Admission?: Yes (3) Frequent falls: PT/OT evals monitor orthostatics >> may have autonomic dysfunction from dm Present on Admission?: Yes History of Present Illness Reason for Consultation: ALMA ROSA on CKD Requesting Physician: Dr Leone Attending Physician: Dae Leone MD History of Present Illness 70 y/o M whom I'm asked to see for ALMA ROSA on CKD after he was admitted last evening for fall at home and hyperglycemia. PMH includes HFpEF (EF 55 to 60%, TTE 2 020), SSS s/p PPM; PE on anticoagulation, COPD/ILD, SALAS on CPAP, DM2 on insulin pump, hypothyroid, class 3 obesity, CKD (baseline creatinine 1.5 to 2.2), recurrent UTI, gout. DM has been exceptionall y poorly controlled recently: A1c 06/2020 was 12.1%; BG on 07/04 as OP in low 600s and 685 on 07/16 as OP. Admitted here 06/19-06/23 for hyperglycemic crisis and UTI w/ ALMA ROSA: peak creatinine 2.1; by d/c creatinine 1.7 Presenting creatinine 2.7 yesterday, down to 2.5 today. Baseline creatinine in [facility] 1.5-1.7. creat as OP was 1.3 as recently as 07/03/20, which is when he est care w/ me in CKD clinic. he takes lasix 80 mg po bid, spironolactone 25 mg qAM, 20 mEq K bid he is currently receiving D5W / LR at 100 mL/hr and is on heparin gtt; digoxin and colchicine doses have been renally adjusted. diuretics on hold. Orthostatics + this afternoon despite IV fluids >> sitting 118 SBP; standing 87. states he was eating/drinking ok prior to admission but that he frequently felt light headed and as though he would fall backwards Allergies Allergy/AdvReac Type Severity Reaction Status Date / Time No Known Drug Allergies Allergy Unknown Verified 07/16/20 21:11 Home Medications Medication Instructions Recorded Confirmed Type digoxin 0.125 mg PO QPM #0 07/13/16 07/16/20 History spironolactone 25 mg PO QAM #0 07/13/16 07/16/20 History aspirin 81 mg tablet,delayed 81 mg PO QAM 05/11/18 07/16/20 History release metolazone 2.5 mg tablet 2.5 mg PO WK tab 05/11/18 07/16/20 History levothyroxine 50 mcg PO QAM 06/24/18 07/16/20 History duloxetine 60 mg capsule,delayed 60 mg PO QAM 08/31/18 07/16/20 History release magnesium oxide 400 mg PO QAM 04/26/19 07/16/20 History cholecalciferol (vitamin D3) 50 2,000 units PO QAM 05/13/19 07/16/20 History mcg (2,000 unit) capsule allopurinol 300 mg tablet 300 mg PO QAM 05/25/19 07/16/20 History levothyroxine 200 mcg tablet 200 mcg PO QAM #0 tab 05/25/19 07/16/20 History omeprazole 20 mg capsule,delayed 20 mg PO QAM 05/25/19 07/16/20 History release tramadol 50 mg PO BID PRN 05/30/19 07/16/20 History potassium chloride [Klor-Con M20] 20 meq PO BIDM 07/12/19 07/16/20 History furosemide 80 mg tablet 80 mg PO BID #0 11/23/19 07/16/20 History acetaminophen 500 mg capsule 1,000 mg PO Q6H PRN 12/14/19 07/16/20 History albuterol sulfate 90 mcg/actuation 2 puffs INH QID PRN gm 12/14/19 07/16/20 History aerosol inhaler atorvastatin 20 mg tablet 10 mg PO HS 12/14/19 07/16/20 History gabapentin 300 mg capsule 300 mg PO TID 12/14/19 07/16/20 History meclizine 12.5 mg tablet 12.5 mg PO TID PRN 12/14/19 07/16/20 History triamcinolone acetonide 0.1 % 1 applic TOPICAL BID 12/14/19 07/16/20 History topical cream [facility] 1 cap PO BID 02/13/20 07/16/20 History bupropion HCl 150 mg PO QAM 02/13/20 07/16/20 History insulin regular hum U-500 conc 0 unit CONTINUOUS SUBCUTANEOUS 02/13/20 07/16/20 History INFUSION CONTINOUS metoprolol succinate 150 mg PO BID 02/13/20 07/16/20 History warfarin 2 mg PO WK 02/13/20 07/16/20 History warfarin 4 mg PO 6XWK 02/13/20 07/16/20 History colchicine 0.6 mg capsule 0.6 mg PO Q OTHER DAY #0 cap 03/02/20 07/16/20 History oxybutynin chloride 10 mg 10 mg PO DAILY 03/29/20 07/16/20 History tablet,extended release 24 hr diclofenac sodium 4 g TOPICAL BID PRN 06/19/20 07/16/20 History multivitamin with minerals 1 tab PO DAILY 06/19/20 07/16/20 History [Multiple Vitamin-Minerals] nitroglycerin 0.4 mg SUBLINGUAL UD PRN 06/19/20 07/16/20 History sennosides-docusate sodium [Senna 1 tab-cap PO BID PRN 07/16/20 07/16/20 History with Docusate Sodium] Patient History Medical History Abnormal chest x-ray 06/18/20 right hilar opacity, f/u recommended Arthritis Atrial fibrillation paroxysmal Atrial flutter Bifascicular block CAD (coronary artery disease) Cardiomyopathy Chronic anticoagulation Chronic diastolic CHF (congestive heart failure) Chronic venous insufficiency CKD (chronic kidney disease) stage 3, GFR 30-59 ml/min Claustrophobia Closed fracture of thyroid cartilage COPD, moderate Depression Diabetes mellitus, type 2 insulin pump Fatty liver Gout Hyperlipidemia Hypertension Hypothyroidism Iatrogenic pulmonary embolism Interstitial lung disease Morbid obesity MRSA infection Nephrolithiasis Nocturnal hypoxemia SALAS (obstructive sleep apnea) Osteoarthritis Paroxysmal atrial fibrillation Prolonged QT interval Pulmonary embolism B/L- 5+ years ago Sarcoidosis possible- evaluated by pulmonary; felt no active sarcoidosis and would not merit steroid therapy given weight/diabetic state. 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 "prior EF of 25% while in aflutter, subsequently normal in NSR" Surgical History H/O cardiac radiofrequency ablation H/O prior ablation treatment History of arthroscopic knee surgery History of bronchoscopy History of cataract surgery local anesthesia only per pt History of cholecystectomy History of extraction of renal calculus History of lung surgery thoracoscopy, right VATS, wedge resection History of umbilical hernia repair Hx of carpal tunnel repair Pacemaker Implanted 02/2017 secondary to Sinus node dysfunction/tachy sherry syndrome/3rd degree AVB [employer] Pacer check 12/24/17 Status post incision and drainage Family History Mother Cancer Social History Smoking Status: Unknown if ever smoked Second Hand Exposure: No; Hx Alcohol Use: No Hx Substance Use: No Preferred Language: Slovak Communication Ability: Effective Visual Impairment: No Limitations Hearing Ability: Normal Proof Sorter Required: No Beliefs That Will Affect Care: None marital status: Current Living Situation: Alone Current Living Situation Comment: [facility] current occupational status: retired How many Children do You have: 2 Other Information That Helps Us Care for You: No Feels Safe at Home: Yes Diet Comment: FLUID RESTRICTION during the past year weight has: other Assistive Devices: Glasses and Walker Review of Systems Review of Systems: All systems reviewed & are unremarkable except as noted in HPI & below Constitutional: + fatigue and + weakness; no fever and no chills Respiratory: no dyspnea and no dyspnea on exertion Cardiovascular: no edema Genitourinary: + urinary frequency; no dysuria, no difficulty urinating and no urinary hesitancy Physical Exam Constitutional: well developed, well nourished and + obese; no acute distress Eyes: EOM intact bilaterally ENMT: Ears: no external ear abnormality Nose: no external nose abnormality Mouth: + dry oral mucous membranes Neck: no nuchal rigidity Respiratory: normal respiratory effort Auscultation: lungs clear to auscultation bilaterally and + diminished lung sounds Cardiovascular: RRR, no murmur, no edema Gastrointestinal (Abdomen): Inspection/Auscultation: normal bowel sounds Percussion/Palpation: abdomen soft; abdomen nontender Musculoskeletal: Extremities: strength 5/5 throughout Skin: no rashes, warm and dry Neurologic: mejía, fluent speech with slight delay, no tremor Psychiatric: Orientation: alert and oriented x 3 Eye Contact: + fair eye contact Motor Behavior: + psychomotor retardation Insight: + limited insight Judgement: + limited judgement Results & Data ([facility]) Vital Signs (Past 12 Hours) Vital Signs Temp Pulse Pulse Resp BP BP Pulse Ox 07/17/20 07:27 61 07/17/20 06:05 36.7 C 62 16 114/72 94 07/17/20 04:01 63 18 102/74 93 07/17/20 03:00 63 24 137/87 93 07/17/20 02:30 62 16 114/74 93 07/17/20 02:00 63 20 111/74 94 07/17/20 01:30 60 21 103/66 91 07/17/20 01:00 63 27 H 114/63 90 07/17/20 00:31 66 24 94/66 L 92 07/17/20 00:01 73 27 H 118/60 92 07/16/20 23:34 96 07/16/20 23:31 76 26 H 140/81 97 Laboratory Results 07/17/20 06:33 07/17/20 06:33 UACM 1023, trace ketones, 1+ prot, 3+ glucose > 20 epi; al indices negative ur osm 385 ABG 7.44/49/94/32 Diagnostic Findings cxr, head CT no acute findings
--- NOTE | 2020-07-17 12:14 | Electrocardiogram Report ---
Test Reason : Blood Pressure : / mmHG Vent. Rate : 078 BPM Atrial Rate : 078 BPM P-R Int : 182 ms QRS Dur : 170 ms QT Int : 440 ms P-R-T Axes : -29 -78 063 degrees QTc Int : 501 ms Normal sinus rhythm Right bundle branch block Left anterior fascicular block Bifascicular block Left ventricular hypertrophy with repolarization abnormality Abnormal ECG When compared with ECG of 18-JUN-2020 20:14, Sinus rhythm has replaced Electronic atrial pacemaker T wave inversion no longer evident in Inferior leads Confirmed by Jim Davenport ([id number]) on 07/17/2020 12:14:13 PM Referred By: REFERRED SELF Confirmed By:Jim Davenport
[2020-07-17 14:18] LABS: Partial Thromboplastin Ratio 1.3; Partial Thromboplastin Time 36.6 Seconds (21.0-31.0)
[2020-07-17] MEDS ORDERED: HEPARIN IV BOLUS 4,000 UNITS in SYRINGE 0 ML IV ONE (14:45)
[2020-07-17 14:49] LABS: Amphetamines+Metham, Urine Neg (Neg); Barbiturates, Urine Neg (Neg); Benzodiazepine, Urine Neg (Neg); Cocaine, Urine Neg (Neg); MDMA (Ecstacy), Urine Pos (Neg); Methadone, Urine Neg (Neg); Opiate, Urine Neg (Neg); Phencyclidine, Urine Neg (Neg)
[2020-07-17] MEDS ORDERED: ALUMINUM/MAGNESIUM/SIMETH (MAALOX MAX) 30 ML UDC PO PRN (15:23)
[2020-07-17] MEDS ORDERED: PROMETHAZINE HCL 6.25 MG in SODIUM CHLORIDE 0.9% 50 ML IV PRN (15:24)
[2020-07-17] MEDS ORDERED: WARFARIN SOD 5 MG TAB PO SCH (16:00)
[2020-07-17] MEDS: FAMOTIDINE 20 MG TAB PO SCH ×2 (16:17→21:38)
[2020-07-17] MEDS: WARFARIN SOD 6 MG TAB PO SCH (16:22)
--- NOTE | 2020-07-17 20:27 | Hospitalist Progress Note ---
Date of Service July 17, 2020 Assessment & Plan (1) Encephalopathy: Acute metabolic encephalopathy Likely multifactorial--Hypoglycemia, dehydration, hyponatremia CT Head:There is no hemorrhage, mass effect, or evidence of acute territorial ischemia by CT criteria. 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 Medication compliance Continue home medications COPD/ILD as per records No signs of exacerbation Hypothyroidism Continue Levothyroxine DVT Px: IV heparin till INR therapeutic Coumadin Disposition Follow up with upon discharge May benefit from SNF placement Likely unsafe to return home as lives alone Admission and Anticipated Discharge Date Admission Date: July 17, 2020 Subjective Patient is seen and examined at bedside Reports dizziness with ambulation Admits to having falls States trying to cut down on food intake to reduce weight Denies chest pain, shortness of breath, abdominal pain Nauseous earlier today Offers no other complaints Review of Systems Review of Systems: All systems reviewed & are unremarkable except as noted in HPI & below Physical Exam Physical Exam: Physical Exam: Vitals signs as noted above General Appearance:Morbidly Obese, no apparent distress Head: normocephalic, Atraumatic Eyes: normal inspection, EOMI Neck: supple, Trachea midline Respiratory/Chest: Normal breath sounds, CTA Cardiovascular: Irregularly irregular, No murmur Abdomen/GI:Soft, Non tender, Bowel sounds present Extremities/Musculoskelatal:normal inspection, chronic venous stasis changes Neurologic/Psych:AAOX3, grossly no focal neurological deficits Skin: normal color, warm Results & Data Results & Data ([facility]) Vital Signs (Past 12 Hours) Vital Signs Temp Pulse Pulse Resp BP Pulse Ox 07/17/20 19:23 36.6 C 85 20 153/73 H 95 07/17/20 15:31 36.5 C 20 97 07/17/20 14:59 62 07/17/20 11:51 36.9 C 60 20 122/71 93 Laboratory Results Short CBC 07/16/20 07/17/20 Range/Units 19:58 06:33 WBC 12.56 H 8.35 (4.8-10.8) K/uL Hgb 15.9 13.5 L (14.0-18.0) g/dL Hct 45.2 41.1 L (42-52) % Plt Count 199 149 (130-400) K/uL BMP 07/16/20 07/16/20 07/17/20 19:58 23:10 06:33 Sodium 128 L 132 L 131 L Potassium 3.6 3.8 3.7 Chloride 90 L 92 L 92 L Carbon Dioxide 34 H 37 H 33 H BUN 66 H 68 H 67 H Creatinine 2.67 H 2.64 H 2.51 H Glucose 48 L* 47 L* 140 H Calcium 10.2 H 10.0 9.7 Cardiac Enzymes 07/16/20 Range/Units 19:58 Total Creatine Kinase 55 (39-308) U/L Troponin I < 0.015 (0-0.045) ng/ml Liver Function 07/16/20 Range/Units 19:58 Total Bilirubin 1.3 H (0.2-1) mg/dl AST 55 H (15-37) U/L ALT 43 (12-78) U/L Alkaline Phosphatase 169 H (45-117) U/L Albumin 3.9 (3.4-5.0) gm/dl Urine 07/16/20 Range/Units 22:15 Urine Color Dark Yellow Urine Appearance Cloudy A (Clear) Urine pH 5.0 (4.5-7.5) Ur Specific [place] 1.023 (1.000-1.030) Urine Protein 1+ H (Negative) Urine Glucose (UA) 3+ H (Negative)
[2020-07-17] MEDS: DIGOXIN 0.125 MG TAB PO SCH (21:37)
[2020-07-17] MEDS: ATORVASTATIN 10 MG TAB PO SCH (21:38)
[2020-07-17 22:10] LABS: Partial Thromboplastin Ratio 1.8
[2020-07-17 22:11] LABS: BUN Creatinine Ratio 25.1 (10-20); Creatinine Clr Calc Pharmacy 42.3 ml/min; Est GFR (African American) 31.4; Est GFR (Non-African American) 27.1; Potassium 3.8 mmol/L (3.5-5.1)
[2020-07-17 22:21] LABS: Beta-Hydroxybutyrate 5.73 mg/dl (0.2-2.81)
[2020-07-17] MEDS ORDERED: PHARMACY GLYCEMIC MGMT CONSULT STA (22:23)
[2020-07-17 22:26] LABS: Partial Thromboplastin Time 50.6 Seconds (21.0-31.0)
[2020-07-17] MEDS ORDERED: PHARMACY GLYCEMIC MGMT CONSULT PRN (22:26)
[2020-07-17] MEDS ORDERED: POTASSIUM CHLORIDE CRTAB 20 MEQ TABCR PO STA (23:05)
[2020-07-17] MEDS ORDERED: NSS + 20MEQ KCL 20 MEQ/1,000 ML BAG IV ONE (23:06)
[2020-07-18] MEDS: INSULIN ASPART 100 UNITS/ML 3 ML PEN SC SCH ×6 (00:02→20:54)
[2020-07-18] MEDS: HEPARIN SODIUM/DEXTROSE 25,000 UNITS/500 ML BAG IV SCH ×2 (05:59→23:10)
[2020-07-18] MEDS: LEVOTHYROXINE SODIUM 50 MCG TABLET PO SCH (06:00)
[2020-07-18] MEDS: LEVOTHYROXINE SODIUM 200 MCG TABLET PO SCH (06:00)
[2020-07-18 07:14] LABS: Hemoglobin 13.7 g/dL (14.0-18.0); Mean Corpuscular Hemoglobin 29.4 pg (25-34); Mean Corpuscular Hgb Conc 32.6 g/dL (32-36); Mean Corpuscular Volume 90.1 fL (80-100); Mean Platelet Volume 11.9 fL (7.4-10.4); Platelet Count 146 K/uL (130-400); RDW Coefficient of Variation 14.2 % (11.5-14.5); RDW Standard Deviation 46.4 fL (36.4-46.3); Red Blood Count 4.66 M/uL (4.7-6.1); White Blood Count 6.42 K/uL (4.8-10.8)
[2020-07-18 07:28] LABS: INR 1.1 (0.9-1.1); Partial Thromboplastin Ratio 1.6; Partial Thromboplastin Time 43.4 Seconds (21.0-31.0); Prothrombin Time 11.7 Seconds (9.0-12.0)
[2020-07-18 07:54] LABS: BUN Creatinine Ratio 24.4 (10-20); Calcium 9.4 mg/dl (8.5-10.1); Creatinine Clr Calc Pharmacy 46.3 ml/min; Est GFR (African American) 36.2; Est GFR (Non-African American) 31.2; Potassium 4.2 mmol/L (3.5-5.1)
[2020-07-18] MEDS: allopurinoL 300 MG TAB PO SCH (08:05)
[2020-07-18] MEDS: ASPIRIN 81 MG ECTAB PO SCH (08:05)
[2020-07-18] MEDS: PANTOprazole 40 MG TAB PO SCH (08:05)
[2020-07-18] MEDS: CEROVITE ADV FORMULA TAB PO SCH (08:05)
[2020-07-18] MEDS: OMEGA-3 (PURIFIED FISH OIL) 1 GM CAP PO SCH ×2 (08:06→20:03)
[2020-07-18] MEDS: METOPROLOL SUCC 50MG EXT REL TAB PO SCH ×2 (08:06→20:03)
[2020-07-18] MEDS: FAMOTIDINE 20 MG TAB PO SCH ×2 (08:07→20:03)
[2020-07-18] MEDS ORDERED: MICONAZOLE NITRATE POWDER 43 GM EXT PRN (10:02)
--- NOTE | 2020-07-18 11:22 | Nephrology Progress Note ---
Date of Service July 18, 2020 Assessment & Plan (1) Acute on chronic renal failure: presenting creatinine 2.7; down to 2.1 today; baseline about 1.5; as recently as 07/04 was 1.3. mild chemical abnormalities > elevated bicarb and BUN, lower Na but all stable or improving; note that presenting BG at admissoin was 48 after near 700 reading earlier in the day. No DKA. suspect markedly pr erenal etiology here. Stage 2 nonoliguric ALMA ROSA. 07/17 was orthostatic on VS, though not clear to me whether he would be this way as well on regular day; still w/ falls prior to admission and hyperglycemia, favor significant volume depletion -off of IVF this evenign; was on this am >> tolerating po; reasonble to observe -daily bmp -agree with holding diuretics but may look to restart soon (2) Encephalopathy: exceptionally labile BG but more stable today; also w/ polypharmacy. do not know this pt well but strikes me as at least mildly cognitively impaired at baseline - needs help w/ meds etc. also polypharmacy (3) Frequent falls: PT/OT evals monitor orthostatics >> may have autonomic dysfunction from dm Admission and Anticipated Discharge Date Admission Date: July 17, 2020 Subjective feels improved, walked halls w/ walker was out in chair BG better controlled Review of Systems Review of Systems: All systems reviewed & are unremarkable except as noted in Subjective Cardiovascular: + edema (BLE stable) Physical Exam Constitutional: well developed, well nourished and + obese; no acute distress Eyes: EOM intact bilaterally ENMT: Ears: no external ear abnormality Nose: no external nose abnormality Mouth: + dry oral mucous membranes and + edentulous Neck: no nuchal rigidity Respiratory: normal respiratory effort Auscultation: lungs clear to a uscultation bilaterally and + diminished lung sounds Cardiovascular: RRR, no murmur, no edema Gastrointestinal (Abdomen): Inspection/Auscultation: normal bowel sounds Percussion/Palpation: abdomen soft; abdomen nontender Musculoskeletal: Extremities: strength 5/5 throughout Skin: no rashes, warm and dry Psychiatric: Orientation: alert and oriented x 3 Eye Contact: good eye contact and + fair eye contact Motor Behavior: + psychomotor retardation (slight ) Results & Data ([facility]) Vital Signs (Past 12 Hours) Vital Signs Temp Pulse Pulse Resp BP Pulse Ox 07/18/20 07:54 36.7 C 67 18 114/63 100 07/18/20 06:58 69 07/18/20 02:44 36.5 C 62 18 110/61 96 07/18/20 00:55 87 07/17/20 23:23 37.1 C 73 18 137/65 94 Laboratory Results 07/18/20 06:56 07/18/20 06:56
[2020-07-18] MEDS ORDERED: INSULIN HUMAN REGULAR PER UNIT 10 UNITS in SYRINGE 9.9 ML IV ONE (12:30)
--- NOTE | 2020-07-18 14:11 | Hospitalist Progress Note ---
Date of Service July 18, 2020 Assessment & Plan (1) Encephalopathy: Acute metabolic encephalopathy-Resolved Likely multifactorial--Hypoglycemia, dehydration, hyponatremia CT Head:There is no hemorrhage, mass effect, or evidence of acute territorial ischemia by CT criteria. 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 Medication compliance Continue home medications COPD/ILD as per records No signs of exacerbation Hypothyroidism Continue Levothyroxine DVT Px: IV heparin till INR therapeutic Coumadin Disposition Follow up with upon discharge May benefit from SNF placement Likely unsafe to return home as lives alone, but told me he wants to go home labs checked ROS-No Headache, No Visual Changes, No Nausea, No Vomiting, No Fever, No Chills, No Neck Pain or Stiffness, No Chest Pain, No Palpitations, No SOB, No WHITE, No Cough, No Sputum, No Wheezing, No Abdominal Pain, No Diarrhea, No Hematemesis, No Hemoptysis, No Unexpected Weight Loss, No Flank pain, No Melena, No Hematochezia, No Frequency, No Urgency, No Burning, No Hematuria, No Rashes, No Diaphoresis. Appetite is Normal Physical Exam Gen-AAO x 3, NAD, Afebrile, Obese Head-NCAT, EOMI, PERRLA, Anicteric Sclera, No Posterior Pharyngeal Erythema Neck-Supple, No JVD, No Thyromegaly, No Masses, No LAD, No Bruits Lungs-Clear to Auscultation Bilaterally, No Rales, No Rhonchi, No Wheezing, No Crepitus Chest-No S4, +S1, +S2, No S3, No Murmurs, No Rubs, No Gallops, No Ectopy Abdomen-Soft, Bowel Sounds Present, Non Tender, Non Distended, No Hepatomegaly, No Splenomegaly, No Palpable Masses, No Rebound, No Rigidity, No Guarding Musculoskeletal-Full Range of Motion Bilaterally, No CVAT Extremities-Hyperpigmented Legs, +Buttock and R toe wound Nuero-Cranial Nerves II-XII grossly intact, Motor WNL, DTRs WNL, Strength WNL, Non Focal Psych-Normal Mood Admission and Anticipated Discharge Date Admission Date: July 17, 2020 Results & Data Results & Data ([facility]) Vital Signs (Past 12 Hours) Vital Signs Temp Pulse Pulse Resp BP Pulse Ox 07/18/20 11:24 36.2 C L 88 20 123/48 L 90 07/18/20 07:54 36.7 C 67 18 114/63 100 07/18/20 06:58 69 07/18/20 02:44 36.5 C 62 18 110/61 96
--- NOTE | 2020-07-18 14:37 | Pharmacy Report ---
Glycemic Control Consultation - Date of Service July 18, 2020 - Scope Scope: Glycemic Pharmacist consulted for glycemic control and to write orders per [facility] inpatient glycemic control protocol. - Objective Weight: 138.3 kg [place] BSG (last 24hrs): 07/17/20 07/17/20 07/17/20 15:09 16:48 16:49 Glucose POC Glucose 251 H 337 H* 326 H* 07/17/20 07/17/20 07/17/20 20:13 20:16 21:35 Glucose 458 H* POC Glucose 426 H* 418 H* 07/17/20 07/18/20 07/18/20 23:58 03:45 06:56 Glucose 257 H POC Glucose 383 H* 276 H 07/18/20 07/18/20 07/18/20 07:22 11:30 11:33 Glucose POC Glucose 262 H 367 H* 330 H* Laboratory Data (last 24hrs): 07/17/20 07/18/20 21:35 06:56 Potassium 3.8 4.2 Carbon Dioxide 31 34 H Anion Gap 6.0 3.0 Creatinine 2.37 H 2.11 H Est Cr Clr Drug Dosing 42.3 46.3 Beta-Hydroxybutyric Acd 5.73 H - Recent Pertinent Medications Outpatient Anti-diabetic Regimen: * U-500 pump * A1c = 12.1 % 06/18/20 The patient is currently receiving: * Basal insulin: Lantus -- units every -- hours * Correctional Insulin: Novolog Correction per scale ACHS Goal Range: Low 140 mg/dL - High 180 mg/dL Correction Factor: 25 mg/dL/unit * Prandial insulin: Per carb ratio of 1 unit per 15 grams CHO consumed * Oral Agents: Risk Factors for Insulin Resistance: * IVF: heparin @26 mL/hr * Diet: T2DM - Assessment & Plan Assessment & Plan: ASSESSMENT: * Mr Andujar is a 70 y/o M with a PMH of T2DM on U-500 pump who presents with encephalopathy. At first, patient's blood sugars were extremely low (evening of 07/16/20) around when pump was taken off. Through 07/17/20, the patient's BSGs trended upwards from 54 to 426 mg/dL. Patient was given 74 units of bolus insulin yesterday; he received 38 units of Novolog overnight. * Fasting BSG today was 262 mg/dL. Start U-500 insulin as this was used during previous hospitalization. Start with 80 units (expect patient truly requires around 60 units in the morning so slight load of 25% given). CF of 5 utilized without carbohydrate ratio since U-500 includes both mealtime and basal coverage. * Lunch BSG was 367 mg/dL --- so will give 60 units of U-500 and 50 units at dinner time. This represents about 200 units of basal/mealtime coverage which is about half of patient's home regimen. IV bolus of 10 units given with lunch. PLAN FOR INPATIENT GLYCEMIC CONTROL: * Basal insulin * U-500 80 units SQ with breakfast; 60 units with lunch; and 50 units with dinner * Bolus insulin * NovoLog per scale ACHS or Q6hrs while NPO * Goal Range: Low 110 mg/dL - High 140 mg/dL * Correction Factor: 5 mg/dL/unit * Nutritional / Prandial insulin per carb ratio of 1 unit per -- grams CHO consumed * Please note that the plan above was derived based on current level of insulin resistance and hospital stress. These recommendations are appropriate for inpatient admission only. Plan of care upon discharge will need to be reassessed to avoid potential outpatient hypo/hyperglycemia. Thank you.
[2020-07-18 14:42] LABS: Partial Thromboplastin Ratio 1.6
[2020-07-18 14:44] LABS: Partial Thromboplastin Time 45.2 Seconds (21.0-31.0)
[2020-07-18] MEDS: WARFARIN SOD 6 MG TAB PO SCH (15:36)
[2020-07-18] MEDS: traMADol HCL 50 MG TABLET PO PRN ×2 (15:36→20:04)
--- NOTE | 2020-07-18 18:42 | Emergency Department Note ---
History of Present Illness General Chief complaint: Syncope Stated complaint: LIGHT HEADED, PASSED OUT Time Seen by Provider: 07/16/20 18:51 Source: patient and RN notes reviewed Mode of arrival: ambulatory Limitations: no limitations History of Present Illness Provider complaint: syncope Maximum Pain Intensity: 9 This pt is a 70 yo male who presents to the ED via EMS after being found on the floor by home health. He states he has been weak and falls "quite a bit." Usually he is able to get himself up. He states he has not been taking his meds properly. Apparently his daughter has concern that he has not been eating or drinking well. He denies SIMPSON, CP, SOB or abd pain, v/d. Of note pt is Rx warfarin. Home Medications Medication Instructions Recorded Confirmed Type digoxin 0.125 mg PO QPM #0 07/13/16 07/16/20 History aspirin 81 mg tablet,delayed 81 mg PO QAM 05/11/18 07/16/20 History release levothyroxine 50 mcg PO QAM 06/24/18 07/16/20 History duloxetine 60 mg capsule,delayed 60 mg PO QAM 08/31/18 07/16/20 History release magnesium oxide 400 mg PO QAM 04/26/19 07/16/20 History cholecalciferol (vitamin D3) 50 2,000 units PO QAM 05/13/19 07/16/20 History mcg (2,000 unit) capsule allopurinol 300 mg tablet 300 mg PO QAM 05/25/19 07/16/20 History levothyroxine 200 mcg tablet 200 mcg PO QAM #0 tab 05/25/19 07/16/20 History omeprazole 20 mg capsule,delayed 20 mg PO QAM 05/25/19 07/16/20 History release tramadol 50 mg PO BID PRN 05/30/19 07/16/20 History potassium chloride [Klor-Con M20] 20 meq PO BIDM 07/12/19 07/16/20 History acetaminophen 500 mg capsule 1,000 mg PO Q6H PRN 12/14/19 07/16/20 History albuterol sulfate 90 mcg/actuation 2 puffs INH QID PRN gm 12/14/19 07/16/20 History aerosol inhaler atorvastatin 20 mg tablet 10 mg PO HS 12/14/19 07/16/20 History gabapentin 300 mg capsule 300 mg PO TID 12/14/19 07/16/20 History meclizine 12.5 mg tablet 12.5 mg PO TID PRN 12/14/19 07/16/20 History triamcinolone acetonide 0.1 % 1 applic TOPICAL BID 12/14/19 07/16/20 History topical cream [facility] 1 cap PO BID 02/13/20 07/16/20 History bupropion HCl 150 mg PO QAM 02/13/20 07/16/20 History insulin regular hum U-500 conc 0 unit CONTINUOUS SUBCUTANEOUS 02/13/20 07/16/20 History INFUSION CONTINOUS metoprolol succinate 150 mg PO BID 02/13/20 07/16/20 History warfarin 2 mg PO WK 02/13/20 07/16/20 History warfarin 4 mg PO [id number] 02/13/20 07/16/20 History colchicine 0.6 mg capsule 0.6 mg PO Q OTHER DAY #0 cap 03/02/20 07/16/20 History oxybutynin chloride 10 mg 10 mg PO DAILY 03/29/20 07/16/20 History tablet,extended release 24 hr diclofenac sodium 4 g TOPICAL BID PRN 06/19/20 07/16/20 History multivitamin with minerals 1 tab PO DAILY 06/19/20 07/16/20 History [Multiple Vitamin-Minerals] nitroglycerin 0.4 mg SUBLINGUAL UD PRN 06/19/20 07/16/20 History sennosides-docusate sodium [Senna 1 tab-cap PO BID PRN 07/16/20 07/16/20 History with Docusate Sodium] famotidine 20 mg PO BID #30 tab 07/20/20 Rx furosemide 80 mg PO QAM #30 tab 07/20/20 Rx spironolactone [Aldactone] 12.5 mg PO DAILY #30 tab 07/20/20 Rx Allergies Allergy/AdvReac Type Severity Reaction Status Date / Time No Known Drug Allergies Allergy Unknown Verified 07/16/20 21:11 Past Med/Surg History Medical History Abnormal chest x-ray 06/18/20 right hilar opacity, f/u recommended Arthritis Atrial fibrillation paroxysmal Atrial flutter Bifascicular block CAD (coronary artery disease) Cardiomyopathy Chronic anticoagulation Chronic diastolic CHF (congestive heart failure) Chronic venous insufficiency CKD (chronic kidney disease) stage 3, GFR 30-59 ml/min Claustrophobia Closed fracture of thyroid cartilage COPD, moderate Depression Diabetes mellitus, type 2 insulin pump Fatty liver Gout Hyperlipidemia Hypertension Hypothyroidism Iatrogenic pulmonary embolism Interstitial lung disease Morbid obesity MRSA infection Nephrolithiasis Nocturnal hypoxemia SALAS (obstructive sleep apnea) Osteoarthritis Paroxysmal atrial fibrillation Prolonged QT interval Pulmonary embolism B/L- 5+ years ago Sarcoidosis possible- evaluated by pulmonary; felt no active sarcoidosis and would not merit steroid therapy given weight/diabetic state. 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 "prior EF of 25% while in aflutter, subsequently normal in NSR" Surgical History H/O cardiac radiofrequency ablation H/O prior ablation treatment History of arthroscopic knee surgery History of bronchoscopy History of cataract surgery local anesthesia only per pt History of cholecystectomy History of extraction of renal calculus History of lung surgery thoracoscopy, right VATS, wedge resection History of umbilical hernia repair Hx of carpal tunnel repair Pacemaker Implanted 02/2017 secondary to Sinus node dysfunction/tachy sherry syndrome/3rd degree AVB [employer] Pacer check 12/24/17 Status post incision and drainage Family History Mother Cancer Social History Smoking Status: Unknown if ever smoked Second Hand Exposure: No; Hx Alcohol Use: No Hx Substance Use: No Preferred Language: Hebrew Communication Ability: Effective Visual Impairment: No Limitations Hearing Ability: Normal Chief Science Officer Required: No Beliefs That Will Affect Care: None marital status: Current Living Situation: Alone Current Living Situation Comment: [facility] current occupational status: retired How many Children do You have: 2 Other Information That Helps Us Care for You: No Feels Safe at Home: Yes Diet Comment: FLUID RESTRICTION during the past year weight has: other Assistive Devices: Walker Review of Systems See HPI for pertinent positives & negatives. and A total of 10 systems reviewed and were otherwise negative Physical Exam Vital signs reviewed. General: Chronically ill appearing 70 yo male, in no significant distress. HEENT: No scleral icterus, + conjunctival injection to L eye with copious purulent drainage. PERRLA, neck supple. Atraumatic. Cardiovascular: Regular rate and rhythm, no extra sounds. Pulmonary: Clear to auscultation bilaterally, normal work of breathing. Abdomen: Soft, obese, nontender, nondistended, positive bowel sounds. Musculoskeletal: Atraumatic, no peripheral edema. Neurologic: Patient awake but somnolent. Follows commands and answers questions. Bruising (small areas) noted to abdomen Skin: Warm, dry, no rash Course Administered Medications Discontinued Medications Acetaminophen (Acetaminophen 325 Mg Tab) 650 mg PO Q4H PRN PRN Reason: Pain or Fever Stop: 08/16/20 05:59 Last Admin: 07/19/20 17:58 Dose: 650 mg Documented by: [id number] Allopurinol (Allopurinol 300 Mg Tab) 300 mg PO [facility] Stop: 08/16/20 08:59 Last Admin: 07/20/20 08:23 Dose: 300 mg Documented by: [id number] Admin: 07/19/20 08:52 Dose: 300 mg Documented by: [id number] Admin: 07/18/20 08:05 Dose: 300 mg Documented by: [id number] Admin: 07/17/20 08:14 Dose: 300 mg Documented by: [id number] Aspirin (Aspirin 81 Mg Ectab) 81 mg PO [facility] Stop: 08/16/20 08:59 Last Admin: 07/20/20 08:24 Dose: 81 mg Documented by: [id number] Admin: 07/19/20 08:51 Dose: 81 mg Documented by: [id number] Admin: 07/18/20 08:05 Dose: 81 mg Documented by: [id number] Admin: 07/17/20 08:13 Dose: 81 mg Documented by: [id number] Atorvastatin Calcium (Atorvastatin 10 Mg Tab) 10 mg PO [facility] Stop: 08/16/20 20:59 Last Admin: 07/19/20 20:09 Dose: 10 mg Documented by: [id number] Admin: 07/18/20 20:03 Dose: 10 mg Documented by: [id number] Admin: 07/17/20 21:38 Dose: 10 mg Documented by: [id number] Ciprofloxacin (Ciprofloxacin Hcl 0.3% Op Soln 2.5 Ml Btl) 2 drops OPL NOW ONE Stop: 07/16/20 22:22 Last Admin: 07/16/20 23:12 Dose: 2 drops Documented by: [id number] Colchicine (Colchicine 0.6 Mg Tab) 0.6 mg PO Q2D@0900 OFE Stop: 08/16/20 08:59 Last Admin: 07/19/20 08:52 Dose: 0.6 mg Documented by: [id number] Admin: 07/17/20 08:11 Dose: 0.6 mg Documented by: [id number] Dextrose (Dextrose 50% 50 Ml Syringe) 25 ml IV NOW ONE Stop: 07/16/20 21:08 Last Admin: 07/16/20 21:16 Dose: 25 ml Documented by: [id number] Dextrose (Dextrose 50% 50 Ml Syringe) 50 ml IV NOW STA Stop: 07/16/20 23:58 Last Admin: 07/17/20 00:01 Dose: 50 ml Documented by: [id number] Dextrose (Dextrose 50% 50 Ml Syringe) Confirm Administered Dose 50 ml IV .STK- MED ONE Stop: 07/16/20 23:55 Last Admin: 07/17/20 00:01 Dose: Not Given Documented by: [id number] Digoxin (Digoxin 0.125 Mg Tab) 0.125 mg PO QPM OFE Stop: 08/16/20 20:59 Last Admin: 07/19/20 20:09 Dose: 0.125 mg Documented by: [id number] Admin: 07/18/20 20:03 Dose: 0.125 mg Documented by: [id number] Admin: 07/17/20 21:37 Dose: 0.125 mg Documented by: [id number] Famotidine (Famotidine 20 Mg Tab) 20 mg PO BID [facility] Stop: 08/16/20 15:24 Last Admin: 07/20/20 08:23 Dose: 20 mg Documented by: [id number] Admin: 07/19/20 20:09 Dose: 20 mg Documented by: [id number] Admin: 07/19/20 08:51 Dose: 20 mg Documented by: [id number] Admin: 07/18/20 20:03 Dose: 20 mg Documented by: [id number] Admin: 07/18/20 08:07 Dose: 20 mg Documented by: [id number] Admin: 07/17/20 21:38 Dose: 20 mg Documented by: [id number] Admin: 07/17/20 16:17 Dose: 20 mg Documented by: [id number] Fish Oil ([place]-3 (Purified Fish Oil) 1 Gm Cap) 1 gm PO BID [facility] Stop: 08/16/20 08:59 Last Admin: 07/20/20 08:23 Dose: 1 gm Documented by: [id number] Admin: 07/19/20 20:09 Dose: 1 gm Documented by: [id number] Admin: 07/19/20 08:51 Dose: 1 gm Documented by: [id number] Admin: 07/18/20 20:03 Dose: 1 gm Documented by: [id number] Admin: 07/18/20 08:06 Dose: 1 gm Documented by: [id number] Admin: 07/17/20 21:37 Dose: 1 gm Documented by: [id number] Admin: 07/17/20 08:11 Dose: 1 gm Documented by: [id number] Heparin Sodium/Dextrose (Heparin Iv Low Dose *No* Bolus) 1 ea IV Q15M OFE; Protocol Stop: 08/16/20 05:59 Last Admin: 07/17/20 08:34 Dose: Not Given Documented by: [id number] Admin: 07/17/20 08:34 Dose: Not Given Documented by: [id number] Admin: 07/17/20 08:33 Dose: Not Given Documented by: [id number] Sodium Chloride (Nss 1000ml) 1,000 mls @ 125 mls/hr IV .Q8H OFE Stop: 07/17/20 02:59 Last Infusion: 07/17/20 01:50 Dose: 0 mls/hr Documented by: [id number] Infusion: 07/17/20 01:50 Dose: 0 mls/hr Documented by: [id number] Admin: 07/16/20 20:22 Dose: 125 mls/hr Documented by: [id number] Sodium Chloride (Nss 1000ml) 500 mls @ 999 mls/hr IV .Q31M ONE Stop: 07/16/20 21:34 Last Infusion: 07/16/20 21:54 Dose: 0 mls/hr Documented by: [id number] Admin: 07/16/20 21:17 Dose: 999 mls/hr Documented by: [id number] Dextrose/Lactated Ringer's (D5w And Lactated Ringers) 1,000 mls @ 100 mls/hr IV .Q10H OFE Stop: 08/16/20 01:44 Last Infusion: 07/17/20 22:43 Dose: 0 mls/hr Documented by: [id number] Infusion: 07/17/20 21:26 Dose: 0 mls/hr Documented by: [id number] Infusion: 07/17/20 15:44 Dose: 100 mls/hr Documented by: [id number] Infusion: 07/17/20 14:15 Dose: 40 mls/hr Documented by: [id number] Admin: 07/17/20 12:46 Dose: 100 mls/hr Documented by: [id number] Infusion: 07/17/20 12:44 Dose: 100 mls/hr Documented by: [id number] Infusion: 07/17/20 03:33 Dose: 100 mls/hr Documented by: [id number] Infusion: 07/17/20 02:51 Dose: 60 mls/hr Documented by: [id number] Admin: 07/17/20 01:50 Dose: 40 mls/hr Documented by: [id number] Heparin Sodium/Dextrose (Heparin Sodium/Dextrose) 25,000 units in 500 mls @ 28 mls/hr IV .[id number] [facility]; Protocol Stop: 08/16/20 05:59 Last Admin: 07/20/20 11:54 Dose: Not Given Documented by: [id number] Admin: 07/20/20 08:21 Dose: 1,400 units/hr, 28 mls/hr Documented by: [id number] Cosigned by: [id number] Titration: 07/20/20 08:21 Dose: 1,400 units/hr, 28 mls/hr Documented by: [id number] Cosigned by: [id number] Titration: 07/20/20 07:07 Dose: 1,400 units/hr, 28 mls/hr Documented by: [id number] Cosigned by: [id number] Admin: 07/19/20 16:25 Dose: 1,400 units/hr, 28 mls/hr Documented by: [id number] Cosigned by: [id number] Titration: 07/19/20 16:25 Dose: 1,400 units/hr, 28 mls/hr Documented by: [id number] Cosigned by: [id number] Titration: 07/19/20 14:57 Dose: 1,400 units/hr, 28 mls/hr Documented by: [id number] Cosigned by: [id number] Titration: 07/19/20 09:09 Dose: 1,400 units/hr, 28 mls/hr Documented by: [id number] Cosigned by: [id number] Titration: 07/19/20 06:50 Dose: 1,400 units/hr, 28 mls/hr Documented by: [id number] Cosigned by: [id number] Titration: 07/18/20 23:13 Dose: 1,400 units/hr, 28 mls/hr Documented by: [id number] Cosigned by: [id number] Admin: 07/18/20 23:10 Dose: 1,400 units/hr, 28 mls/hr Documented by: [id number] Cosigned by: [id number] Titration: 07/18/20 23:10 Dose: 1,400 units/hr, 28 mls/hr Documented by: [id number] Cosigned by: [id number] Titration: 07/18/20 23:08 Dose: 1,400 units/hr, 28 mls/hr Documented by: [id number] Cosigned by: [id number] Titration: 07/18/20 15:04 Dose: 1,400 units/hr, 28 mls/hr Documented by: [id number] Cosigned by: [id number] Titration: 07/18/20 14:49 Dose: 1,400 units/hr, 28 mls/hr Documented by: [id number] Cosigned by: [id number] Titration: 07/18/20 08:03 Dose: 1,300 units/hr, 26 mls/hr Documented by: [id number] Cosigned by: [id number] Admin: 07/18/20 05:59 Dose: 1,200 units/hr, 24 mls/hr Documented by: [id number] Cosigned by: [id number] Titration: 07/18/20 05:51 Dose: 1,200 units/hr, 24 mls/hr Documented by: [id number] Cosigned by: [id number] Titration: 07/17/20 14:36 Dose: 1,200 units/hr, 24 mls/hr Documented by: [id number] Cosigned by: [id number] Admin: 07/17/20 07:53 Dose: 1,000 units/hr, 20 mls/hr Documented by: [id number] Cosigned by: [id number] Heparin Sodium (Porcine) 4,000 (units/ Syringe) 4 mls @ 10 mls/min IV ONE ONE Stop: 07/17/20 14:46 Last Admin: 07/17/20 15:34 Dose: 10 mls/min Documented by: [id number] Cosigned by: [id number] Promethazine HCl 6.25 mg/ (Sodium Chloride) 50.25 mls @ 201 mls/hr IV Q6H PRN PRN Reason: Nausea And Vomiting Stop: 08/16/20 15:23 Last Infusion: 07/17/20 16:36 Dose: 0 mls/hr Documented by: [id number] Admin: 07/17/20 16:08 Dose: 201 mls/hr Documented by: [id number] Potassium Chloride/Sodium Chloride (Normal Saline W/20 Meq Kcl) 20 meq in 1,000 mls @ 60 mls/hr IV .[id number] ONE Stop: 07/18/20 15:45 Last Infusion: 07/18/20 16:22 Dose: 0 mls/hr Documented by: [id number] Admin: 07/17/20 23:41 Dose: 60 mls/hr Documented by: [id number] Insulin Human Regular 80 units (/ Syringe) 0.16 mls @ 0.16 mls/sec SC TODAY@0845 [facility] Stop: 07/18/20 08:46 Last Admin: 07/18/20 08:35 Dose: 1 mls/sec Documented by: [id number] Cosigned by: [id number] Insulin Human Regular 10 units (/ Syringe) 10 mls @ 3.333 mls/min IV ONE ONE Stop: 07/18/20 12:32 Last Admin: 07/18/20 12:40 Dose: 3.333 mls/min Documented by: [id number] Cosigned by: [id number] Insulin Human Regular 60 units (/ Syringe) 0.12 mls @ 0 mls/sec SC TODAY@1230 [facility] Stop: 07/18/20 12:31 Last Admin: 07/18/20 12:40 Dose: 1 mls/sec Documented by: [id number] Cosigned by: [id number] Insulin Human Regular 50 units (/ Syringe) 0.1 mls @ 0 mls/sec SC QDD [facility] Stop: 07/18/20 16:31 Last Admin: 07/18/20 16:47 Dose: 1 mls/sec Documented by: [id number] Cosigned by: [id number] Insulin Human Regular 70 units (/ Syringe) 0.14 mls @ 0.16 mls/sec SC TODAY@0845 [facility] Stop: 08/18/20 08:44 Last Admin: 07/19/20 08:52 Dose: 0.16 mls/sec Documented by: [id number] Cosigned by: [id number] Insulin Human Regular 40 units (/ Syringe) 0.08 mls @ 0 mls/sec SC TODAY@1230 [facility] Stop: 07/19/20 12:31 Last Admin: 07/19/20 12:59 Dose: 1 mls/sec Documented by: [id number] Cosigned by: [id number] Insulin Human Regular 30 units (/ Syringe) 0.06 mls @ 0 mls/sec SC QDD [facility] Stop: 07/19/20 16:31 Last Admin: 07/19/20 16:43 Dose: 1 mls/sec Documented by: [id number] Cosigned by: [id number] Insulin Human Regular 130 (units/ Syringe) 0.26 mls @ 0.16 mls/sec SC DAILY@0800 [facility] Stop: 08/19/20 07:59 Last Admin: 07/20/20 08:21 Dose: 0.16 mls/sec Documented by: [id number] Cosigned by: [id number] Insulin Human Regular 30 units (/ Syringe) 0.06 mls @ 0 mls/sec SC BID@1230,1645 [facility] Stop: 08/19/20 12:29 Last Admin: 07/20/20 13:33 Dose: 30 mls/sec Documented by: [id number] Cosigned by: [id number] Insulin Aspart (Insulin Aspart 100 Units/Ml 3 Ml Pen) 0 units SC ACHS [facility] Stop: 08/16/20 05:59 Last Admin: 07/20/20 11:54 Dose: 41 units Documented by: [id number] Cosigned by: [id number] Admin: 07/20/20 08:22 Dose: 30 units Documented by: [id number] Cosigned by: [id number] Admin: 07/19/20 20:11 Dose: Not Given Documented by: [id number] Cosigned by: [id number] Admin: 07/19/20 16:43 Dose: 9 units Documented by: [id number] Cosigned by: [id number] Admin: 07/19/20 11:59 Dose: 36 units Documented by: [id number] Cosigned by: [id number] Admin: 07/19/20 08:53 Dose: 20 units Documented by: [id number] Cosigned by: [id number] Admin: 07/18/20 20:54 Dose: Not Given Documented by: [id number] Cosigned by: [id number] Admin: 07/18/20 16:47 Dose: 4 units Documented by: [id number] Cosigned by: [id number] Admin: 07/18/20 12:07 Dose: 46 units Documented by: [id number] Cosigned by: [id number] Admin: 07/18/20 08:10 Dose: 25 units Documented by: [id number] Cosigned by: [id number] Admin: 07/17/20 21:31 Dose: 30 units Documented by: [id number] Cosigned by: [id number] Admin: 07/17/20 17:14 Dose: 11 units Documented by: [id number] Cosigned by: [id number] Admin: 07/17/20 12:13 Dose: 4 units Documented by: [id number] Cosigned by: [id number] Admin: 07/17/20 08:02 Dose: 3 units Documented by: [id number] Cosigned by: [id number] Admin: 07/17/20 06:28 Dose: Not Given Documented by: [id number] Insulin Aspart (Insulin Aspart 100 Units/Ml 3 Ml Pen) 0 units SC TODAY@0000,0400 [facility] Stop: 08/17/20 00:00 Last Admin: 07/18/20 03:50 Dose: 12 units Documented by: [id number] Cosigned by: [id number] Admin: 07/18/20 00:02 Dose: 26 units Documented by: [id number] Cosigned by: [id number] Levothyroxine Sodium (Levothyroxine Sodium 200 Mcg Tablet) 200 mcg PO DAILYBB [facility] Stop: 08/16/20 06:29 Last Admin: 07/20/20 06:14 Dose: 200 mcg Documented by: [id number] Admin: 07/19/20 05:48 Dose: 200 mcg Documented by: [id number] Admin: 07/18/20 06:00 Dose: 200 mcg Documented by: [id number] Admin: 07/17/20 06:31 Dose: 200 mcg Documented by: [id number] Levothyroxine Sodium (Levothyroxine Sodium 50 Mcg Tablet) 50 mcg PO DAILYBB [facility] Stop: 08/16/20 06:29 Last Admin: 07/20/20 06:14 Dose: 50 mcg Documented by: [id number] Admin: 07/19/20 05:48 Dose: 50 mcg Documented by: [id number] Admin: 07/18/20 06:00 Dose: 50 mcg Documented by: [id number] Admin: 07/17/20 06:31 Dose: 50 mcg Documented by: [id number] Metoprolol Succinate (Metoprolol Succ 50mg Ext Rel Tab) 150 mg PO BID [facility] Stop: 08/16/20 08:59 Last Admin: 07/20/20 08:23 Dose: 150 mg Documented by: [id number] Admin: 07/19/20 20:09 Dose: 150 mg Documented by: [id number] Admin: 07/19/20 08:51 Dose: Not Given Documented by: [id number] Admin: 07/18/20 20:03 Dose: 150 mg Documented by: [id number] Admin: 07/18/20 08:06 Dose: 150 mg Documented by: [id number] Admin: 07/17/20 21:37 Dose: 150 mg Documented by: [id number] Admin: 07/17/20 08:14 Dose: 150 mg Documented by: [id number] Miscellaneous (Carbohydrates For Hypoglycemia ) 15 - 30 gm PO UD PRN PRN Reason: Hypoglycemia Protocol Stop: 08/16/20 05:59 Last Admin: 07/18/20 22:02 Dose: 30 gm Documented by: [id number] Admin: 07/18/20 21:32 Dose: 30 gm Documented by: [id number] Multivitamins/Minerals (Cerovite Adv Formula Tab) 1 tab PO DAILY [facility] Stop: 08/16/20 08:59 Last Admin: 07/20/20 08:24 Dose: 1 tab Documented by: [id number] Admin: 07/19/20 08:52 Dose: 1 tab Documented by: [id number] Admin: 07/18/20 08:05 Dose: 1 tab Documented by: [id number] Admin: 07/17/20 08:12 Dose: 1 tab Documented by: [id number] Naloxone HCl (Naloxone Hcl 0.4 Mg/1 Ml Vial/Carp) 0.4 mg IV NOW STA Stop: 07/17/20 01:10 Last Admin: 07/17/20 01:36 Dose: 0.4 mg Documented by: [id number] Pantoprazole Sodium (Pantoprazole 40 Mg Tab) 40 mg PO QAM [facility] Stop: 08/16/20 08:59 Last Admin: 07/20/20 08:23 Dose: 40 mg Documented by: [id number] Admin: 07/19/20 08:51 Dose: 40 mg Documented by: [id number] Admin: 07/18/20 08:05 Dose: 40 mg Documented by: [id number] Admin: 07/17/20 08:10 Dose: 40 mg Documented by: [id number] Potassium Chloride (Potassium Chloride Crtab 20 Meq Tabcr) 40 meq PO NOW STA Stop: 07/17/20 23:06 Last Admin: 07/17/20 23:35 Dose: 40 meq Documented by: [id number] Tramadol HCl (Tramadol Hcl 50 Mg Tablet) 50 mg PO Q4H PRN PRN Reason: Pain Stop: 08/17/20 15:14 Last Admin: 07/19/20 19:31 Dose: 50 mg Documented by: [id number] Admin: 07/19/20 15:30 Dose: 50 mg Documented by: [id number] Admin: 07/18/20 20:04 Dose: 50 mg Documented by: [id number] Admin: 07/18/20 15:36 Dose: 50 mg Documented by: [id number] Warfarin Sodium (Warfarin Sod 6 Mg Tab) 6 mg PO DAILY@1600 [facility] Stop: 08/16/20 15:59 Last Admin: 07/19/20 15:27 Dose: 6 mg Documented by: [id number] Admin: 07/18/20 15:36 Dose: 6 mg Documented by: [id number] Admin: 07/17/20 16:22 Dose: 6 mg Documented by: [id number] Medical Decision Making Differential Diagnosis Differential includes acute coronary syndrome, myocardial infarction, CVA, TIA, anemia, infection, pneumonia, UTI, pyelonephritis, poor nutrition, dehydration, electrolyte disturbance,hypoglycemia. Medical Records Attestation: I reviewed the patient's medical records. Home Medications Current Medication List: was personally reviewed by me Laboratory Data Attestation: I reviewed the patient's lab results. Result diagrams: 07/20/20 06:26 07/20/20 06:26 Lab Results 07/16/20 07/16/20 07/16/20 Range/Units 18:25 19:12 19:58 WBC 12.56 H (4.8-10.8) K/uL RBC 5.25 (4.7-6.1) M/uL Hgb 15.9 (14.0-18.0) g/dL Hct 45.2 (42-52) % MCV 86.1 (80-100) fL MCH 30.3 (25-34) pg MCHC 35.2 (32-36) g/dL RDW Std Deviation 42.9 (36.4-46.3) fL RDW Coeff of Baldo 13.8 (11.5-14.5) % Plt Count 199 (130-400) K/uL MPV 11.8 H (7.4-10.4) fL Immature Gran % (Auto) 0.7 % Neut % (Auto) 67.5 % Lymph % (Auto) 21.7 % [place] % (Auto) 8.0 % Eos % (Auto) 1.8 % Baso % (Auto) 0.3 % Neut # (Auto) 8.48 H (1.4-6.5) K/uL Lymph # (Auto) 2.72 (1.2-3.4) K/uL [place] # (Auto) 1.01 H (0.11-0.59) K/uL Eos # (Auto) 0.22 (0-0.5) K/uL Baso # (Auto) 0.04 (0-0.2) K/uL Immature Gran # (Auto) 0.09 H (0.00-0.02) K/uL PT (9.0-12.0) Seconds INR (0.9-1.1) ABG pH (7.35-7.45) ABG pCO2 (35-46) mmHg ABG pO2 (80-95) mmHg ABG HCO3 (19-24) mmol/L ABG O2 Saturation (90-95) % ABG Base Excess (-9-1.8) mEq/L Sam Test (Pos) Oxygen Given Sodium (136-145) mmol/L Potassium (3.5-5.1) mmol/L Chloride (98-107) mmol/L Carbon Dioxide (21-32) mmol/L Anion Gap (3-11) BUN (7-18) mg/dl Creatinine (0.6-1.4) mg/dl Est Cr Clr Drug Dosing Est GFR ( Amer) Est GFR (Non-Af Amer) BUN/Creatinine Ratio (10-20) Glucose (70-99) mg/dl POC Glucose 154 H 75 (70-99) mg/dl Osmolality (280-300) mOsm/kg Lactate (0.4-2.0) mmol/L Calcium (8.5-10.1) mg/dl Magnesium (1.8-2.4) mg/dl Total Bilirubin (0.2-1) mg/dl AST (15-37) U/L ALT (12-78) U/L Alkaline Phosphatase (45-117) U/L Ammonia (11-32) umol/L Total Creatine Kinase (39-308) U/L Troponin I (0-0.045) ng/ml Total Protein (6.4-8.2) gm/dl Albumin (3.4-5.0) gm/dl Globulin (2.5-4.0) gm/dl Albumin/Globulin Ratio (0.9-2) TSH (0.300-4.500) uIu/ml Urine Color Urine Appearance (Clear) Urine pH (4.5-7.5) Ur Specific [place] (1.000-1.030) Urine Protein (Negative) Urine Glucose (UA) (Negative) Urine Ketones (Negative) Urine Blood (Negative) Urine Nitrite (Negative) Urine Bilirubin (Negative) Urine Urobilinogen (Negative) Ur Leukocyte Esterase (Negative) Urine WBC (Auto) (0-5) /hpf Urine RBC (Auto) (0-4) /hpf U Hyaline Cast (Auto) (0-5) /lpf U Epithel Cells (Auto) (0-5) /lpf Urine Bacteria (Auto) (Negative) Urine Osmolality (500-800) mOsm/kg Digoxin (0.8-2.0) ng/ml SARS-CoV-2 Ag (Rapid) (Negative) 07/16/20 07/16/20 07/16/20 Range/Units 19:58 19:58 20:00 WBC (4.8-10.8) K/uL RBC (4.7-6.1) M/uL Hgb (14.0-18.0) g/dL Hct (42-52) % MCV (80-100) fL MCH (25-34) pg MCHC (32-36) g/dL RDW Std Deviation (36.4-46.3) fL RDW Coeff of Baldo (11.5-14.5) % Plt Count (130-400) K/uL MPV (7.4-10.4) fL Immature Gran % (Auto) % Neut % (Auto) % Lymph % (Auto) % [place] % (Auto) % Eos % (Auto) % Baso % (Auto) % Neut # (Auto) (1.4-6.5) K/uL Lymph # (Auto) (1.2-3.4) K/uL [place] # (Auto) (0.11-0.59) K/uL Eos # (Auto) (0-0.5) K/uL Baso # (Auto) (0-0.2) K/uL Immature Gran # (Auto) (0.00-0.02) K/uL PT 11.5 (9.0-12.0) Seconds INR 1.1 (0.9-1.1) ABG pH (7.35-7.45) ABG pCO2 (35-46) mmHg ABG pO2 (80-95) mmHg ABG HCO3 (19-24) mmol/L ABG O2 Saturation (90-95) % ABG Base Excess (-9-1.8) mEq/L Sam Test (Pos) Oxygen Given Sodium 128 L (136-145) mmol/L Potassium 3.6 (3.5-5.1) mmol/L Chloride 90 L (98-107) mmol/L Carbon Dioxide 34 H (21-32) mmol/L Anion Gap 4.0 (3-11) BUN 66 H (7-18) mg/dl Creatinine 2.67 H (0.6-1.4) mg/dl Est Cr Clr Drug Dosing Not Reportable Est GFR ( Amer) 27.2 Est GFR (Non-Af Amer) 23.5 BUN/Creatinine Ratio 24.9 H (10-20) Glucose 48 L* (70-99) mg/dl POC Glucose (70-99) mg/dl Osmolality (280-300) mOsm/kg Lactate 1.9 (0.4-2.0) mmol/L Calcium 10.2 H (8.5-10.1) mg/dl Magnesium 3.4 H (1.8-2.4) mg/dl Total Bilirubin 1.3 H (0.2-1) mg/dl AST 55 H (15-37) U/L ALT 43 (12-78) U/L Alkaline Phosphatase 169 H (45-117) U/L Ammonia (11-32) umol/L Total Creatine Kinase 55 (39-308) U/L Troponin I < 0.015 (0-0.045) ng/ml Total Protein 9.1 H (6.4-8.2) gm/dl Albumin 3.9 (3.4-5.0) gm/dl Globulin 5.2 H (2.5-4.0) gm/dl Albumin/Globulin Ratio 0.8 L (0.9-2) TSH 0.518 (0.300-4.500) uIu/ml Urine Color Urine Appearance (Clear) Urine pH (4.5-7.5) Ur Specific [place] (1.000-1.030) Urine Protein (Negative) Urine Glucose (UA) (Negative) Urine Ketones (Negative) Urine Blood (Negative) Urine Nitrite (Negative) Urine Bilirubin (Negative) Urine Urobilinogen (Negative) Ur Leukocyte Esterase (Negative) Urine WBC (Auto) (0-5) /hpf Urine RBC (Auto) (0-4) /hpf U Hyaline Cast (Auto) (0-5) /lpf U Epithel Cells (Auto) (0-5) /lpf Urine Bacteria (Auto) (Negative) Urine Osmolality (500-800) mOsm/kg Digoxin (0.8-2.0) ng/ml SARS-CoV-2 Ag (Rapid) (Negative) 07/16/20 07/16/20 07/16/20 Range/Units 21:34 22:15 22:15 WBC (4.8-10.8) K/uL RBC (4.7-6.1) M/uL Hgb (14.0-18.0) g/dL Hct (42-52) % MCV (80-100) fL MCH (25-34) pg MCHC (32-36) g/dL RDW Std Deviation (36.4-46.3) fL RDW Coeff of Baldo (11.5-14.5) % Plt Count (130-400) K/uL MPV (7.4-10.4) fL Immature Gran % (Auto) % Neut % (Auto) % Lymph % (Auto) % [place] % (Auto) % Eos % (Auto) % Baso % (Auto) % Neut # (Auto) (1.4-6.5) K/uL Lymph # (Auto) (1.2-3.4) K/uL [place] # (Auto) (0.11-0.59) K/uL Eos # (Auto) (0-0.5) K/uL Baso # (Auto) (0-0.2) K/uL Immature Gran # (Auto) (0.00-0.02) K/uL PT (9.0-12.0) Seconds INR (0.9-1.1) ABG pH (7.35-7.45) ABG pCO2 (35-46) mmHg ABG pO2 (80-95) mmHg ABG HCO3 (19-24) mmol/L ABG O2 Saturation (90-95) % ABG Base Excess (-9-1.8) mEq/L Sam Test (Pos) Oxygen Given Sodium (136-145) mmol/L Potassium (3.5-5.1) mmol/L Chloride (98-107) mmol/L Carbon Dioxide (21-32) mmol/L Anion Gap (3-11) BUN (7-18) mg/dl Creatinine (0.6-1.4) mg/dl Est Cr Clr Drug Dosing Est GFR ( Amer) Est GFR (Non-Af Amer) BUN/Creatinine Ratio (10-20) Glucose (70-99) mg/dl POC Glucose 80 (70-99) mg/dl Osmolality (280-300) mOsm/kg Lactate (0.4-2.0) mmol/L Calcium (8.5-10.1) mg/dl Magnesium (1.8-2.4) mg/dl Total Bilirubin (0.2-1) mg/dl AST (15-37) U/L ALT (12-78) U/L Alkaline Phosphatase (45-117) U/L Ammonia (11-32) umol/L Total Creatine Kinase (39-308) U/L Troponin I (0-0.045) ng/ml Total Protein (6.4-8.2) gm/dl Albumin (3.4-5.0) gm/dl Globulin (2.5-4.0) gm/dl Albumin/Globulin Ratio (0.9-2) TSH (0.300-4.500) uIu/ml Urine Color Dark Yellow Urine Appearance Cloudy A (Clear) Urine pH 5.0 (4.5-7.5) Ur Specific [place] 1.023 (1.000-1.030) Urine Protein 1+ H (Negative) Urine Glucose (UA) 3+ H (Negative) Urine Ketones Trace H (Negative) Urine Blood Negative (Negative) Urine Nitrite Negative (Negative) Urine Bilirubin Negative (Negative) Urine Urobilinogen Negative (Negative) Ur Leukocyte Esterase Negative (Negative) Urine WBC (Auto) 1-5 (0-5) /hpf Urine RBC (Auto) 0-4 (0-4) /hpf U Hyaline Cast (Auto) >30 H (0-5) /lpf U Epithel Cells (Auto) 20-30 H (0-5) /lpf Urine Bacteria (Auto) Negative (Negative) Urine Osmolality 385 L (500-800) mOsm/kg Digoxin (0.8-2.0) ng/ml SARS-CoV-2 Ag (Rapid) (Negative) 07/16/20 07/16/20 07/16/20 Range/Units 23:02 23:10 23:10 WBC (4.8-10.8) K/uL RBC (4.7-6.1) M/uL Hgb (14.0-18.0) g/dL Hct (42-52) % MCV (80-100) fL MCH (25-34) pg MCHC (32-36) g/dL RDW Std Deviation (36.4-46.3) fL RDW Coeff of Baldo (11.5-14.5) % Plt Count (130-400) K/uL MPV (7.4-10.4) fL Immature Gran % (Auto) % Neut % (Auto) % Lymph % (Auto) % [place] % (Auto) % Eos % (Auto) % Baso % (Auto) % Neut # (Auto) (1.4-6.5) K/uL Lymph # (Auto) (1.2-3.4) K/uL [place] # (Auto) (0.11-0.59) K/uL Eos # (Auto) (0-0.5) K/uL Baso # (Auto) (0-0.2) K/uL Immature Gran # (Auto) (0.00-0.02) K/uL PT (9.0-12.0) Seconds INR (0.9-1.1) ABG pH 7.44 (7.35-7.45) ABG pCO2 49 H (35-46) mmHg ABG pO2 94 (80-95) mmHg ABG HCO3 32 H (19-24) mmol/L ABG O2 Saturation 97.3 H (90-95) % ABG Base Excess 6.8 H (-9-1.8) mEq/L Sam Test Pos (Pos) Oxygen Given 3L Sodium 132 L (136-145) mmol/L Potassium 3.8 (3.5-5.1) mmol/L Chloride 92 L (98-107) mmol/L Carbon Dioxide 37 H (21-32) mmol/L Anion Gap 3.0 (3-11) BUN 68 H (7-18) mg/dl Creatinine 2.64 H (0.6-1.4) mg/dl Est Cr Clr Drug Dosing 38.0 Est GFR ( Amer) 27.6 Est GFR (Non-Af Amer) 23.8 BUN/Creatinine Ratio 25.6 H (10-20) Glucose 47 L* (70-99) mg/dl POC Glucose (70-99) mg/dl Osmolality 297 (280-300) mOsm/kg Lactate (0.4-2.0) mmol/L Calcium 10.0 (8.5-10.1) mg/dl Magnesium (1.8-2.4) mg/dl Total Bilirubin (0.2-1) mg/dl AST (15-37) U/L ALT (12-78) U/L Alkaline Phosphatase (45-117) U/L Ammonia (11-32) umol/L Total Creatine Kinase (39-308) U/L Troponin I (0-0.045) ng/ml Total Protein (6.4-8.2) gm/dl Albumin (3.4-5.0) gm/dl Globulin (2.5-4.0) gm/dl Albumin/Globulin Ratio (0.9-2) TSH (0.300-4.500) uIu/ml Urine Color Urine Appearance (Clear) Urine pH (4.5-7.5) Ur Specific [place] (1.000-1.030) Urine Protein (Negative) Urine Glucose (UA) (Negative) Urine Ketones (Negative) Urine Blood (Negative) Urine Nitrite (Negative) Urine Bilirubin (Negative) Urine Urobilinogen (Negative) Ur Leukocyte Esterase (Negative) Urine WBC (Auto) (0-5) /hpf Urine RBC (Auto) (0-4) /hpf U Hyaline Cast (Auto) (0-5) /lpf U Epithel Cells (Auto) (0-5) /lpf Urine Bacteria (Auto) (Negative) Urine Osmolality (500-800) mOsm/kg Digoxin (0.8-2.0) ng/ml SARS-CoV-2 Ag (Rapid) (Negative) 07/16/20 07/16/20 07/16/20 Range/Units 23:10 23:11 Unknown WBC (4.8-10.8) K/uL RBC (4.7-6.1) M/uL Hgb (14.0-18.0) g/dL Hct (42-52) % MCV (80-100) fL MCH (25-34) pg MCHC (32-36) g/dL RDW Std Deviation (36.4-46.3) fL RDW Coeff of Baldo (11.5-14.5) % Plt Count (130-400) K/uL MPV (7.4-10.4) fL Immature Gran % (Auto) % Neut % (Auto) % Lymph % (Auto) % [place] % (Auto) % Eos % (Auto) % Baso % (Auto) % Neut # (Auto) (1.4-6.5) K/uL Lymph # (Auto) (1.2-3.4) K/uL [place] # (Auto) (0.11-0.59) K/uL Eos # (Auto) (0-0.5) K/uL Baso # (Auto) (0-0.2) K/uL Immature Gran # (Auto) (0.00-0.02) K/uL PT (9.0-12.0) Seconds INR (0.9-1.1) ABG pH (7.35-7.45) ABG pCO2 (35-46) mmHg ABG pO2 (80-95) mmHg ABG HCO3 (19-24) mmol/L ABG O2 Saturation (90-95) % ABG Base Excess (-9-1.8) mEq/L Sam Test (Pos) Oxygen Given Sodium (136-145) mmol/L Potassium (3.5-5.1) mmol/L Chloride (98-107) mmol/L Carbon Dioxide (21-32) mmol/L Anion Gap (3-11) BUN (7-18) mg/dl Creatinine (0.6-1.4) mg/dl Est Cr Clr Drug Dosing Est GFR ( Amer) Est GFR (Non-Af Amer) BUN/Creatinine Ratio (10-20) Glucose (70-99) mg/dl POC Glucose (70-99) mg/dl Osmolality (280-300) mOsm/kg Lactate (0.4-2.0) mmol/L Calcium (8.5-10.1) mg/dl Magnesium (1.8-2.4) mg/dl Total Bilirubin (0.2-1) mg/dl AST (15-37) U/L ALT (12-78) U/L Alkaline Phosphatase (45-117) U/L Ammonia 25.0 (11-32) umol/L Total Creatine Kinase (39-308) U/L Troponin I (0-0.045) ng/ml Total Protein (6.4-8.2) gm/dl Albumin (3.4-5.0) gm/dl Globulin (2.5-4.0) gm/dl Albumin/Globulin Ratio (0.9-2) TSH (0.300-4.500) uIu/ml Urine Color Urine Appearance (Clear) Urine pH (4.5-7.5) Ur Specific [place] (1.000-1.030) Urine Protein (Negative) Urine Glucose (UA) (Negative) Urine Ketones (Negative) Urine Blood (Negative) Urine Nitrite (Negative) Urine Bilirubin (Negative) Urine Urobilinogen (Negative) Ur Leukocyte Esterase (Negative) Urine WBC (Auto) (0-5) /hpf Urine RBC (Auto) (0-4) /hpf U Hyaline Cast (Auto) (0-5) /lpf U Epithel Cells (Auto) (0-5) /lpf Urine Bacteria (Auto) (Negative) Urine Osmolality (500-800) mOsm/kg Digoxin 0.6 L (0.8-2.0) ng/ml SARS-CoV-2 Ag (Rapid) Negative (Negative) 07/17/20 Range/Units 00:23 WBC (4.8-10.8) K/uL RBC (4.7-6.1) M/uL Hgb (14.0-18.0) g/dL Hct (42-52) % MCV (80-100) fL MCH (25-34) pg MCHC (32-36) g/dL RDW Std Deviation (36.4-46.3) fL RDW Coeff of Baldo (11.5-14.5) % Plt Count (130-400) K/uL MPV (7.4-10.4) fL Immature Gran % (Auto) % Neut % (Auto) % Lymph % (Auto) % [place] % (Auto) % Eos % (Auto) % Baso % (Auto) % Neut # (Auto) (1.4-6.5) K/uL Lymph # (Auto) (1.2-3.4) K/uL [place] # (Auto) (0.11-0.59) K/uL Eos # (Auto) (0-0.5) K/uL Baso # (Auto) (0-0.2) K/uL Immature Gran # (Auto) (0.00-0.02) K/uL PT (9.0-12.0) Seconds INR (0.9-1.1) ABG pH (7.35-7.45) ABG pCO2 (35-46) mmHg ABG pO2 (80-95) mmHg ABG HCO3 (19-24) mmol/L ABG O2 Saturation (90-95) % ABG Base Excess (-9-1.8) mEq/L Sam Test (Pos) Oxygen Given Sodium (136-145) mmol/L Potassium (3.5-5.1) mmol/L Chloride (98-107) mmol/L Carbon Dioxide (21-32) mmol/L Anion Gap (3-11) BUN (7-18) mg/dl Creatinine (0.6-1.4) mg/dl Est Cr Clr Drug Dosing Est GFR ( Amer) Est GFR (Non-Af Amer) BUN/Creatinine Ratio (10-20) Glucose (70-99) mg/dl POC Glucose 124 H (70-99) mg/dl Osmolality (280-300) mOsm/kg Lactate (0.4-2.0) mmol/L Calcium (8.5-10.1) mg/dl Magnesium (1.8-2.4) mg/dl Total Bilirubin (0.2-1) mg/dl AST (15-37) U/L ALT (12-78) U/L Alkaline Phosphatase (45-117) U/L Ammonia (11-32) umol/L Total Creatine Kinase (39-308) U/L Troponin I (0-0.045) ng/ml Total Protein (6.4-8.2) gm/dl Albumin (3.4-5.0) gm/dl Globulin (2.5-4.0) gm/dl Albumin/Globulin Ratio (0.9-2) TSH (0.300-4.500) uIu/ml Urine Color Urine Appearance (Clear) Urine pH (4.5-7.5) Ur Specific [place] (1.000-1.030) Urine Protein (Negative) Urine Glucose (UA) (Negative) Urine Ketones (Negative) Urine Blood (Negative) Urine Nitrite (Negative) Urine Bilirubin (Negative) Urine Urobilinogen (Negative) Ur Leukocyte Esterase (Negative) Urine WBC (Auto) (0-5) /hpf Urine RBC (Auto) (0-4) /hpf U Hyaline Cast (Auto) (0-5) /lpf U Epithel Cells (Auto) (0-5) /lpf Urine Bacteria (Auto) (Negative) Urine Osmolality (500-800) mOsm/kg Digoxin (0.8-2.0) ng/ml SARS-CoV-2 Ag (Rapid) (Negative) Imaging Data Radiologist's Impression: XR chest 1V portable CLINICAL HISTORY: weakness COMPARISON STUDY: 06/18/2020 FINDINGS: The heart is mildly enlarged. There is no overt failure. There is no focal pulmonary consolidation. There is mild linear subsegmental atelectasis/scarring at the right lung base. Is a prominent left cardiophrenic angle fat pad. There is a left subclavian dual-chamber central venous pacemaker.[ IMPRESSION: No active disease in the chest. ACT 112: Negative or not required by law. Electronically signed by: Todd Flowers M.D. 07/16/2020 7:08 PM Dictated: 07/16/201906Transcribed: 07/16/201906 CT SCAN OF THE BRAIN WITHOUT IV CONTRAST CLINICAL HISTORY: Falls. Dizziness. COMPARISON STUDY: CT of the brain dated 06/18/2020. TECHNIQUE: Unenhanced axial CT scan of the brain is performed from the vertex to the skull base. A dose lowering technique was utilized adhering to the principles of ALARA. The patient was scanned twice due to motion artifact. CT DOSE: 1911.58 mGy.cm FINDINGS: Brain parenchyma: There are age-related involutional changes noting minimal subcortical and periventricular microangiopathic change. There is no hemorrhage, mass effect, or evidence of acute territorial ischemia by CT criteria. Yang- white matter differentiation is preserved. No extra-axial fluid collection is seen. Ventricles, sulci, cisterns: Prominent secondary to involutional change. Intracranial vasculature: There is atherosclerotic calcification of the cavernous carotid and vertebral arteries. Calvarium: There is no depressed calvarial fracture. Sinuses and mastoids: The visualized paranasal sinuses are clear. The mastoid air cells are well pneumatized. Orbits: The bony orbits are grossly intact. There are bilateral ocular lens impl ants. IMPRESSION: There is no hemorrhage, mass effect, or evidence of acute territorial ischemia by CT criteria. ACT 112: Negative or not required by law. Electronically signed by: Anupam Gonzalez M.D. 07/17/2020 7:28 AM Dictated: 07/17/20725Transcribed: 07/17/20725 ECG Data Attestation: I personally reviewed and interpreted this ECG as follows: Indication: + weakness Rate (beats per minute): 78 Rhythm: + normal sinus ECG Intervals/blocks: + Left anterior fascicular block, + Right Bundle branch block and + Prolonged QT ECG [place]: + Left axis deviation ECG ST segments: + repolarization abnormalities ECG Findings: + LVH Blood Pressure Blood Pressure Findings: Low blood pressure Blood Pressure Disposition: further management by hospitalist MDM Narrative This pt was evaluated and appeared to be in no distress. IV access was obtained and lab work was drawn. An order for cardiac monitoring was placed and the pt was noted to be in a NSR at 86 bpm. Lab work reveals a hypoglycemia. Pt was given 1/2 amp D50 and hydrated with NSS. L eye was wiped clean from purulent drainage and cipro ophthalmic was placed. EKG reveals no acute ischemia, head CT is negative for acute process, CXR is negative. UA is significant for protein, glucose and hyaline casts. Neg for infection. Case was d/w hospitalist service for further management. Impression & Plan Diabetes mellitus, type 2, Anticoagulant long-term use, Falls, Near syncope, Nonadherence to medication Discharge Plan Visit Data Chief Complaint: Syncope Stated Complaint: LIGHT HEADED, PASSED OUT ED Provider: Carin Wooten Discharge Problem: Diabetes mellitus, type 2, Anticoagulant long-term use, Falls, Near syncope, Nonadherence to medication Patient Disposition: Admitted As Inpatient Condition: Fair Discharge Instructions Interventions: ED Discharge Assessment Last Done: 07/17/20 04:43 Discharge Problem: Diabetes mellitus, type 2 Qualifiers: Diabetes mellitus prison insulin use: with intermediate project manager use Diabetes mellitus complication status: with hypoglycemia Diabetes mellitus complication detail: without coma Qualified Code(s): E11.649 - Type 2 diabetes mellitus with hypoglycemia without coma Falls Qualifiers: Encounter type: initial encounter Qualified Code(s): W19.XXXA - Unspecified fall, initial encounter
[2020-07-18] MEDS: DIGOXIN 0.125 MG TAB PO SCH (20:03)
[2020-07-18] MEDS: ATORVASTATIN 10 MG TAB PO SCH (20:03)
[2020-07-18] MEDS: CARBOHYDRATES FOR HYPOGLYCEMIA PO PRN ×2 (21:32→22:02)
[2020-07-18 21:49] LABS: Partial Thromboplastin Ratio 1.7
[2020-07-18 23:10] LABS: Partial Thromboplastin Time 47.6 Seconds (21.0-31.0)
[2020-07-19] MEDS: LEVOTHYROXINE SODIUM 200 MCG TABLET PO SCH (05:48)
[2020-07-19] MEDS: LEVOTHYROXINE SODIUM 50 MCG TABLET PO SCH (05:48)
[2020-07-19 06:40] LABS: Hematocrit (blood only) 43.2 % (42-52); Hemoglobin 14.1 g/dL (14.0-18.0); Mean Corpuscular Hemoglobin 29.4 pg (25-34); Mean Corpuscular Hgb Conc 32.6 g/dL (32-36); Mean Corpuscular Volume 90.2 fL (80-100); Mean Platelet Volume 11.2 fL (7.4-10.4); Platelet Count 133 K/uL (130-400); RDW Coefficient of Variation 14.3 % (11.5-14.5); Red Blood Count 4.79 M/uL (4.7-6.1); White Blood Count 6.08 K/uL (4.8-10.8)
[2020-07-19 06:57] LABS: INR 1.2 (0.9-1.1); Prothrombin Time 12.4 Seconds (9.0-12.0)
[2020-07-19 07:27] LABS: Albumin Globulin Ratio 0.7 (0.9-2); Albumin Level 3.2 gm/dl (3.4-5.0); Bilirubin,Total 0.8 mg/dl (0.2-1); Calcium 9.9 mg/dl (8.5-10.1); Creatinine Clr Calc Pharmacy 56.1 ml/min; Est GFR (African American) 45.4; Est GFR (Non-African American) 39.1; Globulin 4.5 gm/dl (2.5-4.0); Total Protein 7.7 gm/dl (6.4-8.2)
[2020-07-19 07:39] LABS: Partial Thromboplastin Ratio 1.8
[2020-07-19 07:46] LABS: Partial Thromboplastin Time 51.4 Seconds (21.0-31.0)
[2020-07-19 08:19] LABS: Potassium 3.7 mmol/L (3.5-5.1)
[2020-07-19] MEDS: OMEGA-3 (PURIFIED FISH OIL) 1 GM CAP PO SCH ×2 (08:51→20:09)
[2020-07-19] MEDS: PANTOprazole 40 MG TAB PO SCH (08:51)
[2020-07-19] MEDS: ASPIRIN 81 MG ECTAB PO SCH (08:51)
[2020-07-19] MEDS: METOPROLOL SUCC 50MG EXT REL TAB PO SCH ×2 (08:51→20:09)
[2020-07-19] MEDS: FAMOTIDINE 20 MG TAB PO SCH ×2 (08:51→20:09)
[2020-07-19] MEDS: allopurinoL 300 MG TAB PO SCH (08:52)
[2020-07-19] MEDS: COLCHICINE 0.6 MG TAB PO SCH (08:52)
[2020-07-19] MEDS: CEROVITE ADV FORMULA TAB PO SCH (08:52)
[2020-07-19] MEDS: INSULIN ASPART 100 UNITS/ML 3 ML PEN SC SCH ×4 (08:53→20:11)
--- NOTE | 2020-07-19 11:16 | Hospitalist Progress Note ---
Date of Service July 19, 2020 Assessment & Plan (1) Encephalopathy: Acute metabolic encephalopathy-Resolved Likely multifactorial--Hypoglycemia, dehydration, hyponatremia CT Head:There is no hemorrhage, mass effect, or evidence of acute territorial ischemia by CT criteria. 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 Medication compliance Continue home medications COPD/ILD as per records No signs of exacerbation Hypothyroidism Continue Levothyroxine DVT Px: IV heparin till INR therapeutic Coumadin Disposition Follow up with upon discharge May benefit from SNF placement Likely unsafe to return home as lives alone, but told me he wants to go home labs checked ROS-No Headache, No Visual Changes, No Nausea, No Vomiting, No Fever, No Chills, No Neck Pain or Stiffness, No Chest Pain, No Palpitations, No SOB, No WHITE, No Cough, No Sputum, No Wheezing, No Abdominal Pain, No Diarrhea, No Hematemesis, No Hemoptysis, No Unexpected Weight Loss, No Flank pain, No Melena, No Hematochezia, No Frequency, No Urgency, No Burning, No Hematuria, No Rashes, No Diaphoresis. Appetite is Normal Physical Exam Gen-AAO x 3, NAD, Afebrile, Obese Head-NCAT, EOMI, PERRLA, Anicteric Sclera, No Posterior Pharyngeal Erythema Neck-Supple, No JVD, No Thyromegaly, No Masses, No LAD, No Bruits Lungs-Clear to Auscultation Bilaterally, No Rales, No Rhonchi, No Wheezing, No Crepitus Chest-No S4, +S1, +S2, No S3, No Murmurs, No Rubs, No Gallops, No Ectopy Abdomen-Soft, Bowel Sounds Present, Non Tender, Non Distended, No Hepatomegaly, No Splenomegaly, No Palpable Masses, No Rebound, No Rigidity, No Guarding Musculoskeletal-Full Range of Motion Bilaterally, No CVAT Extremities-Hyperpigmented Legs, +Buttock and R toe wound Nuero-Cranial Nerves II-XII grossly intact, Motor WNL, DTRs WNL, Strength WNL, Non Focal Psych-Normal Mood Admission and Anticipated Discharge Date Admission Date: July 17, 2020 Results & Data Results & Data ([facility]) Vital Signs (Past 12 Hours) Vital Signs Temp Pulse Pulse Resp BP BP Pulse Ox 07/19/20 07:51 36.5 C 65 18 101/62 98 07/19/20 07:18 60 07/19/20 03:34 36.6 C 62 18 101/66 106/71 96 07/19/20 00:00 68 07/18/20 23:51 86/51 L 137/71
--- NOTE | 2020-07-19 14:08 | Pharmacy Report ---
Glycemic Control Progress Note - Date of Service July 19, 2020 - Scope Glycemic Pharmacist consulted for glycemic control to write orders per [facility] inpatient glycemic control protocol. - Objective Accuchecks BSG(last 24 hours):: 07/18/20 07/18/20 07/18/20 15:06 16:17 18:31 Glucose POC Glucose 215 H 159 H 150 H 07/18/20 07/18/20 07/18/20 19:56 21:29 21:30 Glucose POC Glucose 127 H 57 L* 50 L* 07/18/20 07/18/20 07/18/20 21:43 21:59 22:16 Glucose POC Glucose 60 L* 101 H 99 07/18/20 07/19/20 07/19/20 22:43 03:25 06:31 Glucose 163 H POC Glucose 133 H 151 H 07/19/20 07/19/20 07/19/20 08:48 11:48 11:49 Glucose POC Glucose 236 H 318 H* 317 H* - Recent Pertinent Medications The patient is currently receiving: * Basal insulin: Lantus [] units every [] hours * Correctional Insulin: Novolog Correction per scale ACHS Goal Range: Low [] mg/dL - High [] mg/dL Correction Factor: [] mg/dL/unit * Prandial insulin: Per carb ratio of 1 unit per [] grams CHO consumed * Oral Agents: - Outpatient Anti-Diabetic Meds U-500 pump - Assessment & Plan ASSESSMENT: * See progress note from 07/18/20 for more background info, in short: * Pt receiving SQ basal bolus insulin regimen for hyperglycemia secondary to baseline DM (outpatient regimen on hold). Patient currently on heparin infusion @ 26 mL/hr. * Patient is currently receiving an average of 277 units of insulin per day * 190 units of basal insulin * 87 units of prandial/correctional insulin * BSGs ranging 60 - 367 mg/dl over the past 24hrs * Changes needed to insulin regimen: * AM Fasting BSG = 236 mg/dl. This is above goal range for patient based on inpatient targets and co-morbidities. The patient's BSGs at the beginning of the day were elevated then trended downwards significantly after lunch. Based upon previous information, it appears that the patient requires more insulin in the morning and less in the evening. Will move towards a 2/3 TDD in AM (~130 units) plus 1/3 TDD in evening (30 units at lunch and dinnertime) for tomorrow. For today, had lowered doses slightly due to stacking. * Post-prandial BSGs were elevated. Made adjustments as about. Continue CF of 5. * Total daily dose = ~200-250 units. Plan to adjust medications as above. PLAN FOR INPATIENT GLYCEMIC CONTROL: * U-500 --> 130 units in the morning; 30 units at lunch and bedtime * Continuing correction factor of 5 mg/dl/unit * No carbohydrate ratio * Continuing goal range of Low 110 mg/dL - High 140 mg/dL * Please note that the plan above was derived based on current level of insulin resistance and hospital stress. These recommendations are appropriate for inpatient admission only. Plan of care upon discharge will need to be reassessed to avoid potential outpatient hypo/hyperglycemia. Thank you.
[2020-07-19] MEDS: WARFARIN SOD 6 MG TAB PO SCH (15:27)
[2020-07-19] MEDS: traMADol HCL 50 MG TABLET PO PRN ×2 (15:30→19:31)
[2020-07-19] MEDS: HEPARIN SODIUM/DEXTROSE 25,000 UNITS/500 ML BAG IV SCH (16:25)
[2020-07-19] MEDS ORDERED: HUMULIN R U SC SCH (16:30)
[2020-07-19] MEDS ORDERED: Nursing to Pharmacy Communication SCH (16:30)
[2020-07-19] MEDS: DIGOXIN 0.125 MG TAB PO SCH (20:09)
[2020-07-19] MEDS: ATORVASTATIN 10 MG TAB PO SCH (20:09)
[2020-07-20] MEDS: LEVOTHYROXINE SODIUM 50 MCG TABLET PO SCH (06:14)
[2020-07-20] MEDS: LEVOTHYROXINE SODIUM 200 MCG TABLET PO SCH (06:14)
[2020-07-20 06:35] LABS: Hematocrit (blood only) 40.6 % (42-52); Mean Corpuscular Hemoglobin 29.2 pg (25-34); Mean Corpuscular Volume 91.2 fL (80-100); Platelet Count 130 K/uL (130-400); RDW Coefficient of Variation 14.3 % (11.5-14.5); RDW Standard Deviation 47.8 fL (36.4-46.3); Red Blood Count 4.45 M/uL (4.7-6.1); White Blood Count 5.06 K/uL (4.8-10.8)
[2020-07-20 06:56] LABS: INR 1.4 (0.9-1.1); Partial Thromboplastin Ratio 2.1; Prothrombin Time 14.6 Seconds (9.0-12.0)
[2020-07-20 07:08] LABS: BUN Creatinine Ratio 19.6 (10-20); Calcium 9.7 mg/dl (8.5-10.1); Creatinine Clr Calc Pharmacy 50.9 ml/min; Est GFR (African American) 40.8; Est GFR (Non-African American) 35.2; Potassium 4.2 mmol/L (3.5-5.1)
[2020-07-20 07:10] LABS: Albumin Globulin Ratio 0.8 (0.9-2); Bilirubin,Total 0.8 mg/dl (0.2-1); Globulin 3.8 gm/dl (2.5-4.0); Total Protein 6.8 gm/dl (6.4-8.2)
[2020-07-20] MEDS: HEPARIN SODIUM/DEXTROSE 25,000 UNITS/500 ML BAG IV SCH ×2 (08:21→11:54)
[2020-07-20] MEDS: INSULIN ASPART 100 UNITS/ML 3 ML PEN SC SCH ×2 (08:22→11:54)
[2020-07-20] MEDS: PANTOprazole 40 MG TAB PO SCH (08:23)
[2020-07-20] MEDS: OMEGA-3 (PURIFIED FISH OIL) 1 GM CAP PO SCH (08:23)
[2020-07-20] MEDS: FAMOTIDINE 20 MG TAB PO SCH (08:23)
[2020-07-20] MEDS: allopurinoL 300 MG TAB PO SCH (08:23)
[2020-07-20] MEDS: METOPROLOL SUCC 50MG EXT REL TAB PO SCH (08:23)
[2020-07-20] MEDS: CEROVITE ADV FORMULA TAB PO SCH (08:24)
[2020-07-20] MEDS: ASPIRIN 81 MG ECTAB PO SCH (08:24)
--- NOTE | 2020-07-20 10:53 | Nephrology Progress Note ---
Date of Service July 20, 2020 Assessment & Plan (1) Acute on chronic renal failure: presenting creatinine 2.7; down to 1.9 today; baseline about 1.5; as recently as 07/04 was 1.3. Chemistries acceptable as is volume status and blood pressure. No DKA. suspect markedly prerenal etiology here. Stage 2 nonoliguric ALMA ROSA. 07/17 was orthostatic on VS, though not clear to me whether he would be this way as well on regular day; still w/ falls prior to admission and hyperglycemia, favor significant volume depletion--some lower blood pressures yesterday as well -daily bmp -Continue to hold diuretics but may look to restart soon at much lower than prior outpatient doses: Consider Lasix 80 mg daily and spironolactone 12.5 mg daily and no metolazone and potassium 20 mEq daily when the time comes to resume these d/c recs: -bASIC metabolic panel within 1 week of hospital discharge Diuretic and potassium dosing as above potentially, though these recommendations are not final please check with nephro -Follow-up in CKD clinic 2 to 4 weeks after discharge with myself or with Chiara Hightower, nephrology PA, [facility] CKD [facility] (2) Encephalopathy: exceptionally labile BG but more stable today; also w/ polypharmacy. do not know this pt well but strikes me as at least mildly cognitively impaired at baseline - needs help w/ meds etc. also polypharmacy (3) Frequent falls: PT/OT evals monitor orthostatics >> may have autonomic dysfunction from dm Admission and Anticipated Discharge Date Admission Date: July 17, 2020 Subjective seen on rounds feels much improved; ambulating no sob Review of Systems Review of Systems: All systems reviewed & are unremarkable except as noted in Subjective Physical Exam Constitutional: well developed, well nourished and + obese; no acute distress Eyes: EOM intact bilaterally ENMT: Ears: no external ear abnormality Nose: no external nose abnormality Mouth: + dry oral mucous membranes and + edentulous Neck: no nuchal rigidity Respiratory: normal respiratory effort Auscultation: lungs clear to auscultation bilaterally and + diminished lung sounds on ra Cardiovascular: RRR, no murmur, no edema Gastrointestinal (Abdomen): Inspection/Auscultation: normal bowel sounds Percussion/Palpation: abdomen soft; abdomen nontender Musculoskeletal: Extremities: strength 5/5 throughout up in chair Skin: no rashes, warm and dry Psychiatric: Orientation: alert and oriented x 3 Eye Contact: good eye contact and + fair eye contact Motor Behavior: + psychomotor retardation (slight ) Insight: + limited insight Judgement: + limited judgement Results & Data ([facility]) Vital Signs (Past 12 Hours) Vital Signs Temp Pulse Pulse Resp BP Pulse Ox 07/20/20 10:10 61 07/20/20 04:26 36.7 C 63 20 131/76 99 Laboratory Results 07/20/20 06:26 07/20/20 06:26
--- NOTE | 2020-07-20 11:36 | Discharge Summary ---
Date of Service July 20, 2020 Admission HPI Per Admitting Provider History obtained from family, and records. Patient is a fair historian. Medical history is significant for chronic diastolic heart failure (EF 55 to 60%, TTE 2019), SSS sp PPM/PE on anticoagulation, COPD/ILD as per records, SALAS on CPAP, DM2 on insulin pump, hypothyroidism, CRI (baseline creatinine 1.5 to 2.2), chronic anemia (baseline hemoglobin 13), history of MRSA as per records. Last confinement June 2020 for hyperglycemic crisis and UTI. Occupational Therapy recommended rehab but patient returned home following confinement. Yesterday, patient found by home health nurse on the floor. Patient felt lightheaded prior to falling down as per account. Some bruising noted. Legs a little weak. Patient denies syncope. BSG noted to be 600. Patient self administered 25 units of IV insulin through insulin pump. [place] nurse contacted patient's daughter and recommended ER evaluation. BSG 125 when patient left home. Decreased responsiveness and persistent hypoglycemia at the ER. MEDICAL HISTORY: As above. SURGERIES: Knee surgery, hernia repair, urologic procedures, cataract surgery, entropion surgery, Carpal tunnel surgery, cholecystectomy, lung surgery FAMILY HISTORY: Heart disease. PERSONAL AND SOCIAL HISTORY: Nonsmoker. No chronic intake of alcoholic beverages. 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 Admission Exam Per Admitting Provider GENERAL: unresponsive, morbidly obese, no respiratory distress SKIN: Pallor , warm HEENT: Alopecia, pale palpebral conjunctivae, no ptosis, yellow discharge on left lower eyelid, dry buccal mucosa NECK : Supple, short neck, no tenderness CHEST : Decreased breath sounds , no tenderness HEART : RRR, no obvious murmurs ABDOMEN: distention, nontender EXTREMITIES : Bilateral LE swelling, no LE tenderness, no other conspicuous deformities noted NEUROLOGIC : Unresponsive, no facial asymmetry, mild hearing impairment, no other gross focality Principal Diagnosis Encephalopathy: Acute metabolic encephalopathy ALMA ROSA on CKD III Frequent falls Orthostatic Hypotension/autonomic dysfunction DM II Chronic hyponatremia Hyperglycemia/dehydration Chronic diastolic heart failure H/O SSS S/P PPM COPD/ILD as per records Hypothyroidism Morbid Obesity Discharge Exam See below Discharge Data Allergies Allergy/AdvReac Type Severity Reaction Status Date / Time No Known Drug Allergies Allergy Unknown Verified 07/16/20 21:11 Consultations 07/17/20 06:00 Consult Case Management - Discharge Planning Routine 07/17/20 09:57 Consult Nephrology Routine Ordered Studies 07/16/20 18:57 CT head/brain wo con Urgent Current Diagnoses Encephalopathy, unspecified (07/17/20) Acute kidney failure, unspecified (07/17/20) Chronic kidney disease, unspecified (07/17/20) Repeated falls (07/17/20) Allergies No Known Drug Allergies Allergy (Verified 07/16/20 21:11) Unknown Height/Weight/Isolation Height 5 ft 9 in Weight 137 kg Isolation Type Contact Precautions Chemistry 07/19/20 07/19/20 07/20/20 06:31 07:32 06:26 Sodium 138 136 Potassium 3.7 4.2 Chloride 101 101 Carbon Dioxide 32 27 Anion Gap 4.0 8.0 BUN 40 H 38 H Creatinine 1.75 H D 1.91 H Glucose 163 H 261 H Microbiology 07/16/20 19:58 Blood Aerobic Blood Culture - Preliminary No growth in Aerobic bottle after 48 hours. 07/16/20 19:58 Blood Anaerobic Blood Culture - Preliminary No growth in Anaerobic bottle after 48 hours. 07/16/20 20:24 Blood Aerobic Blood Culture - Preliminary No growth in Aerobic bottle after 48 hours. 07/16/20 20:24 Blood Anaerobic Blood Culture - Preliminary No growth in Anaerobic bottle after 48 hours. Hospital Course (1) Encephalopathy: Acute metabolic encephalopathy-Resolved Likely multifactorial--Hypoglycemia, dehydration, hyponatremia CT Head:There is no hemorrhage, mass effect, or evidence of acute territorial ischemia by CT criteria. Blood glucose levels very variable ALMA ROSA on CKD III Prerenal Baseline Cr about 1.5 Cr 1.9 today Avoid nephrotoxic agents as able Frequent falls Orthostatic Hypotension/autonomic dysfunction Likely secondary to above DM II On Insulin Pump HbA1C:12.12 Jun 2020 Very Variable blood glucose levels Hypoglycemic/Hyperglycemic episodes Patient states that he is trying to cut food intake to attain weight loss clinical nurse educator saw him Subtherapeutic INR INR:1.2 DC Heparin ggt Coumadin resumed at home dose Monitor INR in the office ?Compliance Chronic hyponatremia Hyperglycemia/dehydration contributing Chronic diastolic heart failure EF 55 to 60% Resume Diuretics per renal-see DC med rec H/O SSS S/P PPM ? Medication compliance Continue home medications COPD/ILD as per records No signs of exacerbation Hypothyroidism Continue Levothyroxine Disposition Follow up with upon discharge, lots of service support set up at home labs checked ROS-No Headache, No Visual Changes, No Nausea, No Vomiting, No Fever, No Chills, No Neck Pain or Stiffness, No Chest Pain, No Palpitations, No SOB, No WHITE, No Cough, No Sputum, No Wheezing, No Abdominal Pain, No Diarrhea, No Hematemesis, No Hemoptysis, No Unexpected Weight Loss, No Flank pain, No Melena, No Hematoc hezia, No Frequency, No Urgency, No Burning, No Hematuria, No Rashes, No Diaphoresis. Appetite is Normal Physical Exam Gen-AAO x 3, NAD, Afebrile, Obese Head-NCAT, EOMI, PERRLA, Anicteric Sclera, No Posterior Pharyngeal Erythema Neck-Supple, No JVD, No Thyromegaly, No Masses, No LAD, No Bruits Lungs-Clear to Auscultation Bilaterally, No Rales, No Rhonchi, No Wheezing, No Crepitus Chest-No S4, +S1, +S2, No S3, No Murmurs, No Rubs, No Gallops, No Ectopy Abdomen-Soft, Bowel Sounds Present, Non Tender, Non Distended, No Hepatomegaly, No Splenomegaly, No Palpable Masses, No Rebound, No Rigidity, No Guarding Musculoskeletal-Full Range of Motion Bilaterally, No CVAT Extremities-Hyperpigmented Legs, +Buttock and R toe wound, Edema much improved Nuero-Cranial Nerves II-XII grossly intact, Motor WNL, DTRs WNL, Strength WNL, Non Focal Psych-Normal Mood Total Time Total Time Spent Total Time Spent (In Minutes): 45 mins Total Time Includes: Examination of the Patient, Discharge Planning, Medication Reconciliation and Communication With Other Providers Discharge Plan Discharge Items Patient Disposition: Home - Home Health Services Reason For Visit: ENCEPHALOPATHY Discharge Diagnosis: Encephalopathy: Acute metabolic encephalopathy ALMA ROSA on CKD III Frequent falls Orthostatic Hypotension/autonomic dysfunction DM II Chronic hyponatremia Hyperglycemia/dehydration Chronic diastolic heart failure H/O SSS S/P PPM COPD/ILD as per records Hypothyroidism Morbid Obesity Condition on Discharge: Fair Health Concerns: Compliance with meds Activity: Resume your previous activity Lifting: Gradually increase as tolerated Bathing: No limitations Sexual Activity: When tolerated Exercise/Sports: Gradually increase as tolerated Driving/Machine Use: No limitations Weightbearing: Full weightbearing Non-emergency contact: Primary Care Provider and Electrophysiology Nurse Practitioner Call non-emergency contact if: you have any medication questions Follow-up/Referrals: Cristal Merritt MD, PhD [Physician] - (Call for directions) Scotty Jara DO [Primary Care Provider] - Diet: Carb Consistent or DM2 Fluids: 1500ml (6 cups) Addtl Attending Provider Instructions: Monitor INR Your Lasix is now once daily, Aldactone (spironolactone) dose decreased by half, Stop Metolazone Pending Studies at Discharge: No Stand-Alone Forms: My [facility] [employer], Smoking Cessation Medications and DC Order Prescriptions: New famotidine 20 mg Tablet 20 mg PO BID Qty: 30 RF: 0 spironolactone [Aldactone] 25 mg tablet 12.5 mg PO DAILY Qty: 30 RF: 0 furosemide 80 mg tablet 80 mg PO QAM Qty: 30 RF: 0 Continued aspirin [Adult Low Dose Aspirin] 81 mg tablet,delayed release (DR/EC) 81 mg PO QAM RF: 0 duloxetine 60 mg capsule,delayed release(DR/EC) 60 mg PO QAM RF: 0 cholecalciferol (vitamin D3) 2,000 unit capsule 2,000 units PO QAM RF: 0 oxybutynin chloride [Ditropan XL] 10 mg tablet extended release 24hr 10 mg PO DAILY RF: 0 digoxin 125 mcg Tablet 0.125 mg PO QPM Qty: 0 RF: 0 levothyroxine 200 mcg tablet 200 mcg PO QAM Qty: 0 RF: 0 colchicine 0.6 mg capsule 0.6 mg PO Q OTHER DAY Qty: 0 RF: 0 allopurinol 300 mg tablet 300 mg PO QAM RF: 0 omeprazole 20 mg capsule,delayed release(DR/EC) 20 mg PO QAM RF: 0 atorvastatin 20 mg tablet 10 mg PO HS RF: 0 gabapentin 300 mg capsule 300 mg PO TID RF: 0 acetaminophen 500 mg capsule 1,000 mg PO Q6H PRN (Reason: Pain) RF: 0 meclizine 12.5 mg tablet 12.5 mg PO TID PRN (Reason: headaches) RF: 0 albuterol sulfate 90 mcg/actuation HFA aerosol inhaler 2 puffs INH QID PRN (Reason: Shortness Of Breath Or Wheezing) RF: 0 triamcinolone acetonide 0.1 % cream 1 applic topical BID RF: 0 levothyroxine 50 mcg tablet 50 mcg PO QAM RF: 0 magnesium oxide 400 mg magnesium Tablet 400 mg PO QAM RF: 0 tramadol 50 mg Tablet 50 mg PO BID PRN (Reason: Pain, Severe) RF: 0 metoprolol succinate 100 mg tablet extended release 24 hr 150 mg PO BID RF: 0 warfarin 4 mg tablet 2 mg PO WK RF: 0 [facility] 250-2.5-0.5 mg Capsule 1 cap PO BID RF: 0 insulin regular hum U-500 conc 500 unit/mL Solution 0 unit continuous subcutaneous infusion CONTINOUS RF: 0 warfarin 4 mg tablet 4 mg PO 6XWK RF: 0 bupropion HCl 150 mg tablet extended release 24 hr 150 mg PO QAM RF: 0 potassium chloride [Klor-Con M20] 20 mEq tablet,ER particles/crystals 20 meq PO BIDM RF: 0 nitroglycerin 0.4 mg tablet, sublingual 0.4 mg sublingual UD PRN (Reason: Chest Pain) RF: 0 diclofenac sodium 1 % Gel 4 g TOPICAL BID PRN (Reason: Pain) RF: 0 multivitamin with minerals [Multiple Vitamin-Minerals] Tablet 1 tab PO DAILY RF: 0 sennosides-docusate sodium [Senna with Docusate Sodium] 8.6-50 mg Tablet 1 tab-cap PO BID PRN (Reason: Constipation) RF: 0 Discontinued metolazone 2.5 mg tablet 2.5 mg PO WK RF: 0 spironolactone 25 mg Tablet 25 mg PO QAM Qty: 0 RF: 0 furosemide 80 mg tablet 80 mg PO BID Qty: 0 RF: 0 Discharge Orders: Discharge Order (Routine); Ordered 07/20/20 Ordered By: Rashaad Torres/Other Patient Handouts: Heart Failure Procedures, Heart Failure: Tracking Your Weight Admission Data Admit Date/Time: 07/17/20 01:09 Attending Provider: Rashaad Booker Admit Provider: Rick Ochoa Primary Care Provider: Scotty Jara Other Providers: Cristal Merritt ; [place]
[2020-07-20] MEDS ORDERED: HUMULIN R U SC SCH ×2 (12:30→21:00)
[2020-07-21] MEDS ORDERED: INSULIN ASPART 100 UNITS/ML 3 ML PEN SC SCH
[2020-07-21 11:21] LABS: MDA negative; MDEA negative; MDMA (Ecstasy) Urine, Confirm negative
== END 2020-07-20 16:10 | disposition home health service (06) | DRG 637 ==
LOC: ED 18:20 → 2W 07-17 01:09 → SUATTDRO 07-17 01:09 → 2W 07-17 04:43

== ENCOUNTER 2020-11-01 16:45 | Inpatient (IN) ==
[2020-11-01 17:41] LABS: Basophils # (auto) 0.02 K/uL (0-0.2); Basophils % (auto) 0.3 %; Eosinophils # (auto) 0.12 K/uL (0-0.5); Hematocrit (blood only) 39.4 % (42-52); Hemoglobin 13.6 g/dL (14.0-18.0); Immature Granulocytes # (auto) 0.01 K/uL (0.00-0.02); Immature Granulocytes % (auto) 0.2 %; Lymphocytes # (auto) 1.31 K/uL (1.2-3.4); Mean Corpuscular Hemoglobin 29.8 pg (25-34); Mean Corpuscular Hgb Conc 34.5 g/dL (32-36); Mean Corpuscular Volume 86.2 fL (80-100); Mean Platelet Volume 11.8 fL (7.4-10.4); Monocytes # (auto) 0.59 K/uL (0.11-0.59); Monocytes % (auto) 9.9 %; Neutrophils % (auto) 65.6 %; Platelet Count 151 K/uL (130-400); RDW Coefficient of Variation 13.9 % (11.5-14.5); Red Blood Count 4.57 M/uL (4.7-6.1); White Blood Count 5.95 K/uL (4.8-10.8)
[2020-11-01 17:52] LABS: INR 1.2 (0.9-1.1); Partial Thromboplastin Ratio 1.1; Partial Thromboplastin Time 29.3 Seconds (21.0-31.0); Prothrombin Time 11.9 Seconds (9.0-12.0)
[2020-11-01] MEDS ORDERED: SODIUM CHLORIDE 0.9% 1000ML 1,000 ML IV SCH (18:00)
[2020-11-01 18:01] LABS: Albumin Globulin Ratio 0.8 (0.9-2); Albumin Level 3.4 gm/dl (3.4-5.0); BUN Creatinine Ratio 24.5 (10-20); Bilirubin,Total 1.5 mg/dl (0.2-1); Calcium 11.3 mg/dl (8.5-10.1); Creatinine Clr Calc Pharmacy 53.6 ml/min; Est GFR (African American) 43.3; Est GFR (Non-African American) 37.3; Globulin 4.4 gm/dl (2.5-4.0); Total Protein 7.8 gm/dl (6.4-8.2)
--- NOTE | 2020-11-01 18:04 | XRay Report ---
SINGLE VIEW CHEST CLINICAL HISTORY: Hyperglycemia. FINDINGS: An AP, portable, upright chest radiograph is compared to study dated 07/16/2020. Correlation is made with chest CT dated 11/10/2018. A 2-lead cardiac pacemaker is unchanged in position. The heart is enlarged noting atherosclerotic calcification of the thoracic aorta. The pulmonary vasculature is noncongested. Chronic interstitial thickening is similar to previous. There is bibasilar scarring/ate lectasis. No airspace consolidation or large pleural effusion is identified. Postoperative change is noted in the right midlung. No pneumothorax is seen. The skeletal structures are osteopenic. Healed r ight-sided rib fractures are again noted. IMPRESSION: 1. Cardiomegaly and cardiac pacemaker. There is no radiographic evidence of congestive failure. 2. No airspace consolidation or large pleural effusion is identified. ACT 112: Negative or not required by law. Electronically signed by: Anupam Gonzalez M.D. 11/01/2020 6:03 PM
--- NOTE | 2020-11-01 18:16 | Emergency Department Note ---
History of Present Illness General Chief complaint: Hyperglycemia Stated complaint: HIGH SUGAR Time Seen by Provider: 11/01/20 17:43 Source: patient Mode of arrival: ambulatory Limitations: no limitations History of Present Illness Provider complaint: Hyperglycemia, referred from PCP Onset (ago): hour(s) Maximum Pain Intensity: 0 This is a 70-year-old male who was referred from his PCPs office due to the finding of an elevated glucose level in the office. Patient states he does check his sugar at home and is typically in the 100s, states last night it was around 150. States he does have an insulin pump. He states that he did not realize until he got to the office that the batteries had in his insulin pump and he was not receiving his usual basal rate. When his PCP pointed this out in the office and checked his sugar it was found to be "high", formal labs were drawn which revealed a sugar of greater than 600, and he was referred to the emergency room. Patient denies any symptoms. States he has had elevated blood sugar readings before and has not required admission. Patient states he has not had any fevers or chills, URI symptoms, chest pain, trouble breathing, abdominal pain, change in bowel or bladder function, leg swelling. He denies a ny dietary indiscretion. States this has happened before that he is not realized that the battery alarm was going off on his insulin pump and it has shut off. Patient states he did place new batteries in prior to coming over here and the insulin pump is now working again. I did confirm this at bedside by viewing his device. Patient also mentions a yeast infection under the left breast. States he has been using a topical powder. Pt seen during a time of high acuity and national emergency pandemic while wearing PPE. Home Medications Medication Instructions Recorded Confirmed Type digoxin 0.125 mg PO QPM #0 07/13/16 11/01/20 History aspirin 81 mg tablet,delayed 81 mg PO QAM 05/11/18 11/01/20 History release levothyroxine 50 mcg PO QAM 06/24/18 11/01/20 History duloxetine 60 mg capsule,delayed 60 mg PO QAM 08/31/18 11/01/20 History release cholecalciferol (vitamin D3) 50 2,000 units PO QAM 05/13/19 11/01/20 History mcg (2,000 unit) capsule allopurinol 300 mg tablet 300 mg PO QAM 05/25/19 11/01/20 History levothyroxine 200 mcg tablet 200 mcg PO QAM #0 tab 05/25/19 11/01/20 History omeprazole 20 mg capsule,delayed 20 mg PO QAM 05/25/19 11/01/20 History release tramadol 50 mg PO BID PRN 05/30/19 11/01/20 History potassium chloride [Klor-Con M20] 20 meq PO DAILY 07/12/19 11/01/20 History acetaminophen 500 mg capsule 1,000 mg PO Q6H PRN 12/14/19 11/01/20 History albuterol sulfate 90 mcg/actuation 2 puffs INH QID PRN gm 12/14/19 11/01/20 History aerosol inhaler atorvastatin 20 mg tablet 10 mg PO HS 12/14/19 11/01/20 History gabapentin 300 mg capsule 300 mg PO TID 12/14/19 11/01/20 History meclizine 12.5 mg tablet 12.5 mg PO TID PRN 12/14/19 11/01/20 History [facility] 1 cap PO BID 02/13/20 11/01/20 History bupropion HCl 150 mg PO QAM 02/13/20 11/01/20 History insulin regular hum U-500 conc 0 unit CONTINUOUS SUBCUTANEOUS 02/13/20 11/01/20 History INFUSION CONTINOUS metoprolol succinate 150 mg PO BID 02/13/20 11/01/20 History warfarin 2 mg PO WK 02/13/20 11/01/20 History warfarin 4 mg PO [id number] 02/13/20 11/01/20 History colchicine 0.6 mg capsule 0.6 mg PO Q OTHER DAY #0 cap 03/02/20 11/01/20 History oxybutynin chloride 10 mg 10 mg PO DAILY 03/29/20 11/01/20 History tablet,extended release 24 hr diclofenac sodium 4 g TOPICAL BID PRN 06/19/20 11/01/20 History multivitamin with minerals 1 tab PO DAILY 06/19/20 11/01/20 History [Multiple Vitamin-Minerals] nitroglycerin 0.4 mg SUBLINGUAL UD PRN 06/19/20 11/01/20 History sennosides-docusate sodium [Senna 1 tab-cap PO BID PRN 07/16/20 11/01/20 History with Docusate Sodium] furosemide 80 mg PO BID 11/01/20 11/01/20 History magnesium oxide 400 mg PO DAILY 11/01/20 11/01/20 History metolazone [Zaroxolyn] 2.5 mg PO DAILY PRN 11/01/20 11/01/20 History spironolactone [Aldactone] 25 mg PO DAILY 11/01/20 11/01/20 History triamcinolone acetonide 1 applic TOPICAL BID PRN 11/01/20 11/01/20 History Allergies Allergy/AdvReac Type Severity Reaction Status Date / Time No Known Allergies Allergy Verified 11/01/20 18:25 Past Med/Surg History Medical History Abnormal chest x-ray 06/18/20 right hilar opacity, f/u recommended Arthritis Atrial fibrillation paroxysmal Atrial flutter Bifascicular block CAD (coronary artery disease) Cardiomyopathy Chronic anticoagulation Chronic diastolic CHF (congestive heart failure) Chronic venous insufficiency CKD (chronic kidney disease) stage 3, GFR 30-59 ml/min Claustrophobia Closed fracture of thyroid cartilage COPD, moderate Depression Diabetes mellitus, type 2 insulin pump Fatty liver Gout Hyperlipidemia Hypertension Hypothyroidism Iatrogenic pulmonary embolism Interstitial lung disease Morbid obesity MRSA infection Nephrolithiasis Nocturnal hypoxemia SALAS (obstructive sleep apnea) Osteoarthritis Paroxysmal atrial fibrillation Prolonged QT interval Pulmonary embolism B/L- 5+ years ago Sarcoidosis possible- evaluated by pulmonary; felt no active sarcoidosis and would not merit steroid therapy given weight/diabetic state. 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 "prior EF of 25% while in aflutter, subsequently normal in NSR" Surgical History H/O cardiac radiofrequency ablation H/O prior ablation treatment History of arthroscopic knee surgery History of bronchoscopy History of cataract surgery local anesthesia only per pt History of cholecystectomy History of extraction of renal calculus History of lung surgery thoracoscopy, right VATS, wedge resection History of umbilical hernia repair Hx of carpal tunnel repair Pacemaker Implanted 02/2017 secondary to Sinus node dysfunction/tachy sherry syndrome/3rd degree AVB [employer] Pacer check 12/24/17 Status post incision and drainage Family History Mother Cancer Social History Smoking Status: Unknown if ever smoked Second Hand Exposure: No; Hx Alcohol Use: No Hx Substance Use: No Preferred Language: [place] Communication Ability: Effective Visual Impairment: No Limitations Hearing Ability: Normal Health Care Analyst Required: No Beliefs That Will Affect Care: None marital status: Single Current Living Situation: Alone Current Living Situation Comment: Lives @ home alone at this time current occupational status: retired How many Children do You have: 2 Other Information That Helps Us Care for You: No Feels Safe at Home: Yes Safety Concerns: Feels Safe At This Time Diet Comment: FLUID RESTRICTION during the past year weight has: other Assistive Devices: Walker Assistive Devices Comment: Personal Wheelchair, glasses and shoes at bedside Review of Systems See HPI for pertinent positives & negatives. and A total of 10 systems reviewed and were otherwise negative Physical Exam Vital Signs Vital Signs - 24 hr 11/01/20 16:52 11/01/20 17:35 11/01/20 17:38 Temperature 36.6 C Temperature Source Oral Pulse Rate 67 63 Pulse Rate [Left Apical] 63 Pulse Rate from SpO2 Sensor 63 Pulse Rhythm [Left Apical] Regular Pulse Strength [Left Apical] Normal Respiratory Rate 16 18 24 Respiratory Effort / Characteristics Non-Labored Spontaneous Respiratory Depth Normal Respiratory Pattern Regular Blood Pressure 133/71 99/55 L Blood Pressure [Left Arm] 99/55 L Blood Pressure Mean 91 69 Blood Pressure Mean [Left Arm] 69 Blood Pressure Position [Left Arm] Lying Pulse Oximetry 96 93 Oxygen Delivery Method Room Air Room Air Sepsis Recent Fever Within 48 Hours No Sepsis New/Unexplained Change in Mental Status N/A Sepsis Action Taken by Nursing No Action Required 11/01/20 17:44 11/01/20 18:00 11/01/20 18:13 Temperature Temperature Source Pulse Rate 63 62 62 Pulse Rate [Left Apical] Pulse Rate from SpO2 Sensor 63 Pulse Rhythm [Left Apical] Pulse Strength [Left Apical] Respiratory Rate 20 24 24 Respiratory Effort / Characteristics Respiratory Depth Respiratory Pattern Blood Pressure 115/50 L Blood Pressure [Left Arm] Blood Pressure Mean 71 Blood Pressure Mean [Left Arm] Blood Pressure Position [Left Arm] Pulse Oximetry Oxygen Delivery Method Sepsis Recent Fever Within 48 Hours Sepsis New/Unexplained Change in Mental Status Sepsis Action Taken by Nursing 11/01/20 18:17 11/01/20 18:42 11/01/20 19:00 Temperature Temperature Source Pulse Rate 86 62 Pulse Rate [Left Apical] 62 Pulse Rate from SpO2 Sensor 62 Pulse Rhythm [Left Apical] Regular Pulse Strength [Left Apical] Normal Respiratory Rate 15 21 Respiratory Effort / Characteristics Non-Labored Spontaneous Respiratory Depth Normal Respiratory Pattern Regular Blood Pressure Blood Pressure [Left Arm] 115/50 L Blood Pressure Mean Blood Pressure Mean [Left Arm] 71 Blood Pressure Position [Left Arm] Lying Pulse Oximetry 94 96 Oxygen Delivery Method Room Air Sepsis Recent Fever Within 48 Hours Sepsis New/Unexplained Change in Mental Status Sepsis Action Taken by Nursing 11/01/20 19:19 11/01/20 19:30 11/01/20 20:00 Temperature Temperature Source Pulse Rate 62 62 64 Pulse Rate [Left Apical] Pulse Rate from SpO2 Sensor 62 62 Pulse Rhythm [Left Apical] Pulse Strength [Left Apical] Respiratory Rate 22 19 22 Respiratory Effort / Characteristics Respiratory Depth Respiratory Pattern Blood Pressure 113/63 131/62 114/54 L Blood Pressure [Left Arm] Blood Pressure Mean 79 85 74 Blood Pressure Mean [Left Arm] Blood Pressure Position [Left Arm] Pulse Oximetry 93 95 Oxygen Delivery Method Sepsis Recent Fever Within 48 Hours Sepsis New/Unexplained Change in Mental Status Sepsis Action Taken by Nursing 11/01/20 20:34 11/01/20 21:00 11/01/20 21:23 Temperature Temperature Source Pulse Rate 68 66 63 Pulse Rate [Left Apical] Pulse Rate from SpO2 Sensor Pulse Rhythm [Left Apical] Pulse Strength [Left Apical] Respiratory Rate 18 22 22 Respiratory Effort / Characteristics Respiratory Depth Respiratory Pattern Blood Pressure 141/72 H 96/71 L 114/48 L Blood Pressure [Left Arm] Blood Pressure Mean 95 79 70 Blood Pressure Mean [Left Arm] Blood Pressure Position [Left Arm] Pulse Oximetry 93 94 Oxygen Delivery Method Sepsis Recent Fever Within 48 Hours Sepsis New/Unexplained Change in Mental Status Sepsis Action Taken by Nursing 11/01/20 21:30 11/01/20 22:00 11/01/20 22:33 Temperature Temperature Source Pulse Rate 63 65 67 Pulse Rate [Left Apical] Pulse Rate from SpO2 Sensor Pulse Rhythm [Left Apical] Pulse Strength [Left Apical] Respiratory Rate 24 22 Respiratory Effort / Characteristics Respiratory Depth Respiratory Pattern Blood Pressure 104/46 L 123/52 L Blood Pressure [Left Arm] Blood Pressure Mean 65 75 Blood Pressure Mean [Left Arm] Blood Pressure Position [Left Arm] Pulse Oximetry 94 93 Oxygen Delivery Method Sepsis Recent Fever Within 48 Hours Sepsis New/Unexplained Change in Mental Status Sepsis Action Taken by Nursing GENERAL: alert, well appearing, well nourished, no distress, non-toxic, obese EYE EXAM: normal conjunctiva, PERRL and EOM's grossly intact OROPHARYNX: no exudate, no erythema, lips, buccal mucosa, and tongue normal and mucous membranes are moist, edentulous NECK: supple, no nuchal rigidity, no adenopathy, non-tender LUNGS: Clear to auscultation. Normal chest wall mechanics, no w/r/r HEART: no murmurs, S1 normal and S2 normal ABDOMEN: abdomen soft, non-tender, normo-active bowel sounds, no masses, no rebound or guarding. BACK: Back is symmetrical on inspection and there is no deformity, no midline tenderness, no CVA tenderness. SKIN: no rashes and no bruising UPPER EXTREMITIES: upper extremities are grossly normal. FROM, nml pulses b/l. LOWER EXTREMITIES: No pitting edema. FROM, nml pulses b/l. NEURO EXAM: Normal sensorium, cranial nerves II-XII grossly intact, normal speech, no gross weakness of arms, no gross weakness of legs. Gross sensation intact. Course Course 2001: Patient updated on results. States he has been using an antifungal powder, no other creams. Patient is aware that his INR was low as it was checked today in the office also. He was given instructions on how to manage this and is scheduled to have it repeated in 3 days. 2211: Pt states he is still feeling well. Glucose still elevated. 2245: Discussed with Dr. Butcher. Administered Medications Aspirin (Aspirin 81 Mg Ectab) 81 mg PO QAM [facility] Stop: 12/02/20 08:59 Last Admin: 11/02/20 07:41 Dose: 81 mg Documented by: [id number] Atorvastatin Calcium (Atorvastatin 10 Mg Tab) 10 mg PO HS [facility] Stop: 12/02/20 20:59 Last Admin: 11/02/20 20:49 Dose: 10 mg Documented by: [id number] Bupropion HCl (Bupropion Xl 150 Mg Tabcr) 150 mg PO QAM [facility] Stop: 12/02/20 08:59 Last Admin: 11/02/20 07:41 Dose: 150 mg Documented by: [id number] Colchicine (Colchicine 0.6 Mg Tab) 0.6 mg PO Q48H [facility] Stop: 12/02/20 08:59 Last Admin: 11/02/20 07:40 Dose: 0.6 mg Documented by: [id number] Digoxin (Digoxin 0.125 Mg Tab) 0.125 mg PO QPM [facility] Stop: 12/02/20 20:59 Last Admin: 11/02/20 20:50 Dose: 0.125 mg Documented by: [id number] Doxycycline Hyclate (Doxycycline Hyclate 100 Mg Cap) 100 mg PO BID [facility] Stop: 11/09/20 20:59 Last Admin: 11/02/20 20:51 Dose: 100 mg Documented by: [id number] Duloxetine HCl (Duloxetine Hcl 60 Mg Cap) 60 mg PO QAM [facility] Stop: 12/02/20 08:59 Last Admin: 11/02/20 07:41 Dose: 60 mg Documented by: [id number] Enoxaparin Sodium (Enoxaparin 150 Mg/Ml Syr) 141 mg SQ Q12H [facility] Stop: 12/02/20 10:59 Last Admin: 11/02/20 22:57 Dose: 141 mg Documented by: [id number] Admin: 11/02/20 11:29 Dose: 141 mg Documented by: [id number] Fish Oil ([place]-3 (Purified Fish Oil) 1 Gm Cap) 1 gm PO BID [facility] Stop: 12/02/20 08:59 Last Admin: 11/02/20 20:51 Dose: 1 gm Documented by: [id number] Admin: 11/02/20 07:40 Dose: 1 gm Documented by: [id number] Gabapentin (Gabapentin 300 Mg Cap) 300 mg PO TID [facility] Stop: 12/02/20 08:59 Last Admin: 11/02/20 20:52 Dose: 300 mg Documented by: [id number] Admin: 11/02/20 14:06 Dose: 300 mg Documented by: [id number] Admin: 11/02/20 07:41 Dose: 300 mg Documented by: [id number] Insulin Aspart (Insulin Aspart 100 Units/Ml 3 Ml Pen) 0 units SC ACHS [facility] Stop: 12/02/20 16:29 Last Admin: 11/02/20 21:00 Dose: Not Given Documented by: [id number] Cosigned by: [id number] Admin: 11/02/20 17:07 Dose: 26 units Documented by: [id number] Cosigned by: [id number] Insulin Human NPH (Insulin Human Nph) 0 units SC DAILY@2100 [facility]; Protocol Stop: 12/02/20 20:59 Last Admin: 11/02/20 20:59 Dose: 10 units Documented by: [id number] Cosigned by: [id number] Levothyroxine Sodium (Levothyroxine Sodium 200 Mcg Tablet) 200 mcg PO DAILYBB [facility] Stop: 12/02/20 06:29 Last Admin: 11/03/20 05:33 Dose: 200 mcg Documented by: [id number] Admin: 11/02/20 05:32 Dose: 200 mcg Documented by: [id number] Levothyroxine Sodium (Levothyroxine Sodium 50 Mcg Tablet) 50 mcg PO DAILYBB [facility] Stop: 12/02/20 06:29 Last Admin: 11/03/20 05:33 Dose: 50 mcg Documented by: [id number] Admin: 11/02/20 05:32 Dose: 50 mcg Documented by: [id number] Metoprolol Succinate (Metoprolol Succ 50mg Ext Rel Tab) 150 mg PO BID [facility] Stop: 12/02/20 08:59 Last Admin: 11/02/20 20:53 Dose: 150 mg Documented by: [id number] Admin: 11/02/20 07:41 Dose: 150 mg Documented by: [id number] Multivitamins/Minerals (Cerovite Adv Formula Tab) 1 tab PO DAILY@1200 [facility] Stop: 12/02/20 11:59 Last Admin: 11/02/20 11:30 Dose: 1 tab Documented by: [id number] Nystatin (Nystatin Cr 15 Gm Tube) 1 appln EXT BID [facility] Stop: 12/02/20 08:59 Last Admin: 11/02/20 20:54 Dose: 1 appln Documented by: [id number] Admin: 11/02/20 07:41 Dose: 1 appln Documented by: [id number] Oxybutynin Chloride (Oxybutynin Chloride Xl 5 Mg Tabcr) 10 mg PO DAILY [facility] Stop: 12/02/20 08:59 Last Admin: 11/02/20 07:40 Dose: 10 mg Documented by: [id number] Pantoprazole Sodium (Pantoprazole 40 Mg Tab) 40 mg PO QAM [facility] Stop: 12/02/20 08:59 Last Admin: 11/02/20 07:40 Dose: 40 mg Documented by: [id number] Warfarin Sodium (Warfarin Sod 5 Mg Tab) 5 mg PO DAILY@1600 [facility] Stop: 12/02/20 15:59 Last Admin: 11/02/20 17:09 Dose: 5 mg Documented by: [id number] Discontinued Medications Cephalexin HCl (Cephalexin 250 Mg Cap) 500 mg PO NOW ONE Stop: 11/01/20 20:19 Last Admin: 11/01/20 20:26 Dose: 500 mg Documented by: [id number] Enoxaparin Sodium (Enoxaparin 150 Mg/Ml Syr) 150 mg SC NOW STA Stop: 11/01/20 23:01 Last Admin: 11/01/20 23:20 Dose: 150 mg Documented by: [id number] Fluconazole (Fluconazole 100 Mg Tab) 200 mg PO ONE ONE Stop: 11/01/20 20:46 Last Admin: 11/01/20 20:39 Dose: 200 mg Documented by: [id number] Heparin Sodium/Dextrose (Heparin Iv Adult Wt-Based Standard *No* Bolus Protocol) 1 ea N/A ONE ONE; Protocol Stop: 11/01/20 23:38 Last Admin: 11/02/20 00:52 Dose: Not Given Documented by: [id number] Sodium Chloride (Nss 1000ml) 1,000 mls @ 125 mls/hr IV .Q8H [facility] Stop: 12/01/20 17:59 Last Infusion: 11/02/20 02:38 Dose: 0 mls/hr Documented by: [id number] Infusion: 11/02/20 01:34 Dose: 0 mls/hr Documented by: [id number] Admin: 11/01/20 18:18 Dose: 125 mls/hr Documented by: [id number] Insulin Human Regular 250 (units/ Sodium Chloride) 250 mls @ 0 mls/hr IV .Q0M [facility]; Protocol Stop: 12/01/20 22:14 Last Titration: 11/02/20 16:40 Dose: 0 units/hr, 0 mls/hr Documented by: [id number] Cosigned by: [id number] Titration: 11/02/20 11:31 Dose: 0 units/hr, 0 mls/hr Documented by: [id number] Cosigned by: [id number] Titration: 11/02/20 10:33 Dose: 5.3 units/hr, 5.3 mls/hr Documented by: [id number] Cosigned by: [id number] Titration: 11/02/20 09:28 Dose: 5.3 units/hr, 5.3 mls/hr Documented by: [id number] Cosigned by: [id number] Titration: 11/02/20 08:30 Dose: 5.3 units/hr, 5.3 mls/hr Documented by: [id number] Cosigned by: [id number] Titration: 11/02/20 07:32 Dose: 6.6 units/hr, 6.6 mls/hr Documented by: [id number] Cosigned by: [id number] Titration: 11/02/20 06:32 Dose: 8.3 units/hr, 8.3 mls/hr Documented by: [id number] Cosigned by: [id number] Titration: 11/02/20 05:30 Dose: 10.4 units/hr, 10.4 mls/hr Documented by: [id number] Cosigned by: [id number] Titration: 11/02/20 04:32 Dose: 8.7 units/hr, 8.7 mls/hr Documented by: [id number] Cosigned by: [id number] Titration: 11/02/20 03:30 Dose: 6.2 units/hr, 6.2 mls/hr Documented by: [id number] Cosigned by: [id number] Titration: 11/02/20 02:30 Dose: 5.2 units/hr, 5.2 mls/hr Documented by: [id number] Cosigned by: [id number] Admin: 11/01/20 23:19 Dose: 10 units/hr, 10 mls/hr Documented by: [id number] Cosigned by: [id number] Lactated Ringer's (Lr) 1,000 mls @ 200 mls/hr IV .Q5H ONE Stop: 11/02/20 06:11 Last Infusion: 11/02/20 06:19 Dose: 0 mls/hr Documented by: [id number] Admin: 11/02/20 01:34 Dose: 200 mls/hr Documented by: [id number] Doxycycline Hyclate 100 mg/ (Dextrose) 110 mls @ 50 mls/hr IV NOW STA Stop: 11/02/20 03:44 Last Infusion: 11/02/20 04:45 Dose: 0 mls/hr Documented by: [id number] Admin: 11/02/20 02:33 Dose: 50 mls/hr Documented by: [id number] Lactated Ringer's (Lr) 1,000 mls @ 100 mls/hr IV .Q10H [facility] Stop: 11/02/20 14:14 Last Infusion: 11/02/20 16:23 Dose: 0 mls/hr Documented by: [id number] Admin: 11/02/20 06:18 Dose: 100 mls/hr Documented by: [id number] Insulin Aspart (Insulin Aspart 100 Units/Ml 3 Ml Pen) 0 units SC ACHS [facility] Stop: 12/02/20 08:44 Last Admin: 11/02/20 12:07 Dose: 34 units Documented by: [id number] Cosigned by: [id number] Admin: 11/02/20 09:33 Dose: 20 units Documented by: [id number] Cosigned by: [id number] Insulin Human NPH (Insulin Human Nph) 90 units SC NOW ONE Stop: 11/02/20 09:16 Last Admin: 11/02/20 09:33 Dose: 90 units Documented by: [id number] Cosigned by: [id number] Insulin Human Regular (Novolin-R Insulin Per Unit Charge) 10 units SC NOW STA Stop: 11/01/20 19:41 Last Admin: 11/01/20 19:57 Dose: 10 units Documented by: [id number] Cosigned by: [id number] Insulin Human Regular (Novolin-R Insulin Per Unit Charge) 10 units SC NOW STA Stop: 11/01/20 20:58 Last Admin: 11/01/20 21:19 Dose: 10 units Documented by: [id number] Cosigned by: [id number] Miscellaneous ([facility] Goal Range 250-350 Mg/Dl) 1 ea N/A ONE ONE Stop: 11/01/20 22:15 Last Admin: 11/01/20 23:20 Dose: 1 ea Documented by: [id number] Warfarin Sodium (Warfarin Sod 4 Mg Tab) 8 mg PO NOW ONE Stop: 11/01/20 23:38 Last Admin: 11/02/20 00:52 Dose: 8 mg Documented by: [id number] Critical Care Time Critical Care Time: Yes Total Critical Care Time: 40 Critical care of 40 min performed to assess and manage high likelihood of life- threatening hyperglycemia, involving labs and imaging performed with assessment to evaluate hyperglycemia diagnosis with frequent reassessment. This time includes bedside time, treatment discussions with patient/family/consultants, documentation time and excludes procedure time. Medical Decision Making Differential Diagnosis Differential Diagnosis includes but is not limited to dehydration, stroke, anemia, hypoglycemia, hyponatremia, hypernatremia, urinary tract infection, pneumonia, bronchitis, sepsis, gastroenteritis, additional abdominal pathology, metabolic abnormalities and infections. Medical Records Attestation: I reviewed the patient's medical records. Home Medications Current Medication List: was personally reviewed by me Laboratory Data Attestation: I reviewed the patient's lab results. Result diagrams: 11/01/20 17:30 11/03/20 06:17 Lab Results 11/01/20 11/01/20 11/01/20 Range/Units 17:30 17:30 17:30 WBC 5.95 (4.8-10.8) K/uL RBC 4.57 L (4.7-6.1) M/uL Hgb 13.6 L (14.0-18.0) g/dL Hct 39.4 L (42-52) % MCV 86.2 (80-100) fL MCH 29.8 (25-34) pg MCHC 34.5 (32-36) g/dL RDW Std Deviation 43.0 (36.4-46.3) fL RDW Coeff of Baldo 13.9 (11.5-14.5) % Plt Count 151 (130-400) K/uL MPV 11.8 H (7.4-10.4) fL Immature Gran % (Auto) 0.2 % Neut % (Auto) 65.6 % Lymph % (Auto) 22.0 % Emanuel % (Auto) 9.9 % Eos % (Auto) 2.0 % Baso % (Auto) 0.3 % Neut # (Auto) 3.90 (1.4-6.5) K/uL Lymph # (Auto) 1.31 (1.2-3.4) K/uL Emanuel # (Auto) 0.59 (0.11-0.59) K/uL Eos # (Auto) 0.12 (0-0.5) K/uL Baso # (Auto) 0.02 (0-0.2) K/uL Immature Gran # (Auto) 0.01 (0.00-0.02) K/uL PT 11.9 (9.0-12.0) Seconds INR 1.2 H (0.9-1.1) APTT 29.3 (21.0-31.0) Seconds PTT Ratio 1.1 Sodium 125 L (136-145) mmol/L Potassium (3.5-5.1) mmol/L Chloride 88 L (98-107) mmol/L Carbon Dioxide 28 (21-32) mmol/L Anion Gap 8.0 (3-11) BUN 45 H (7-18) mg/dl Creatinine 1.82 H (0.6-1.4) mg/dl Est Cr Clr Drug Dosing 53.6 ml/min Est GFR ( Amer) 43.3 Est GFR (Non-Af Amer) 37.3 BUN/Creatinine Ratio 24.5 H (10-20) Glucose 653 H* (70-99) mg/dl POC Glucose (70-99) mg/dl Estimat Average Glucose mg/dl Hemoglobin A1c (4.5-5.6) % Osmolality (280-300) mOsm/kg Lactate (0.4-2.0) mmol/L Calcium 11.3 H (8.5-10.1) mg/dl Phosphorus (2.5-4.9) mg/dl Magnesium (1.8-2.4) mg/dl Total Bilirubin 1.5 H (0.2-1) mg/dl AST (15-37) U/L ALT 20 (12-78) U/L Alkaline Phosphatase 97 (45-117) U/L Troponin I (0-0.045) ng/ml Total Protein 7.8 (6.4-8.2) gm/dl Albumin 3.4 (3.4-5.0) gm/dl Globulin 4.4 H (2.5-4.0) gm/dl Albumin/Globulin Ratio 0.8 L (0.9-2) Lipase (73-393) U/L Beta-Hydroxybutyric Acd (0.2-2.81) mg/dl TSH (0.300-4.500) uIu/ml Urine Color Urine Appearance (Clear) Urine pH (4.5-7.5) Ur Specific Allred (1.000-1.030) Urine Protein (Negative) Urine Glucose (UA) (Negative) Urine Ketones (Negative) Urine Blood (Negative) Urine Nitrite (Negative) Urine Bilirubin (Negative) Urine Urobilinogen (Negative) Ur Leukocyte Esterase (Negative) COVID-19 Eval Order SARS-CoV-2 (PCR) (Negative) Influenza Type A (PCR) (Neg) Influenza Type B (PCR) (Neg) RSV (RT-PCR) (Neg) 11/01/20 11/01/20 11/01/20 Range/Units 17:30 17:30 17:30 WBC (4.8-10.8) K/uL RBC (4.7-6.1) M/uL Hgb (14.0-18.0) g/dL Hct (42-52) % MCV (80-100) fL MCH (25-34) pg MCHC (32-36) g/dL RDW Std Deviation (36.4-46.3) fL RDW Coeff of Baldo (11.5-14.5) % Plt Count (130-400) K/uL MPV (7.4-10.4) fL Immature Gran % (Auto) % Neut % (Auto) % Lymph % (Auto) % Emanuel % (Auto) % Eos % (Auto) % Baso % (Auto) % Neut # (Auto) (1.4-6.5) K/uL Lymph # (Auto) (1.2-3.4) K/uL Emanuel # (Auto) (0.11-0.59) K/uL Eos # (Auto) (0-0.5) K/uL Baso # (Auto) (0-0.2) K/uL Immature Gran # (Auto) (0.00-0.02) K/uL PT (9.0-12.0) Seconds INR (0.9-1.1) APTT (21.0-31.0) Seconds PTT Ratio Sodium (136-145) mmol/L Potassium (3.5-5.1) mmol/L Chloride (98-107) mmol/L Carbon Dioxide (21-32) mmol/L Anion Gap (3-11) BUN (7-18) mg/dl Creatinine (0.6-1.4) mg/dl Est Cr Clr Drug Dosing ml/min Est GFR ( Amer) Est GFR (Non-Af Amer) BUN/Creatinine Ratio (10-20) Glucose (70-99) mg/dl POC Glucose > 600 H* (70-99) mg/dl Estimat Average Glucose 306 mg/dl Hemoglobin A1c 12.3 H (4.5-5.6) % Osmolality 339 H (280-300) mOsm/kg Lactate (0.4-2.0) mmol/L Calcium (8.5-10.1) mg/dl Phosphorus (2.5-4.9) mg/dl Magnesium (1.8-2.4) mg/dl Total Bilirubin (0.2-1) mg/dl AST (15-37) U/L ALT (12-78) U/L Alkaline Phosphatase (45-117) U/L Troponin I (0-0.045) ng/ml Total Protein (6.4-8.2) gm/dl Albumin (3.4-5.0) gm/dl Globulin (2.5-4.0) gm/dl Albumin/Globulin Ratio (0.9-2) Lipase (73-393) U/L Beta-Hydroxybutyric Acd (0.2-2.81) mg/dl TSH (0.300-4.500) uIu/ml Urine Color Urine Appearance (Clear) Urine pH (4.5-7.5) Ur Specific Allred (1.000-1.030) Urine Protein (Negative) Urine Glucose (UA) (Negative) Urine Ketones (Negative) Urine Blood (Negative) Urine Nitrite (Negative) Urine Bilirubin (Negative) Urine Urobilinogen (Negative) Ur Leukocyte Esterase (Negative) COVID-19 Eval Order SARS-CoV-2 (PCR) (Negative) Influenza Type A (PCR) (Neg) Influenza Type B (PCR) (Neg) RSV (RT-PCR) (Neg) 11/01/20 11/01/20 11/01/20 Range/Units 18:39 18:39 18:40 WBC (4.8-10.8) K/uL RBC (4.7-6.1) M/uL Hgb (14.0-18.0) g/dL Hct (42-52) % MCV (80-100) fL MCH (25-34) pg MCHC (32-36) g/dL RDW Std Deviation (36.4-46.3) fL RDW Coeff of Baldo (11.5-14.5) % Plt Count (130-400) K/uL MPV (7.4-10.4) fL Immature Gran % (Auto) % Neut % (Auto) % Lymph % (Auto) % Emanuel % (Auto) % Eos % (Auto) % Baso % (Auto) % Neut # (Auto) (1.4-6.5) K/uL Lymph # (Auto) (1.2-3.4) K/uL Emanuel # (Auto) (0.11-0.59) K/uL Eos # (Auto) (0-0.5) K/uL Baso # (Auto) (0-0.2) K/uL Immature Gran # (Auto) (0.00-0.02) K/uL PT (9.0-12.0) Seconds INR (0.9-1.1) APTT (21.0-31.0) Seconds PTT Ratio Sodium (136-145) mmol/L Potassium 4.7 (3.5-5.1) mmol/L Chloride (98-107) mmol/L Carbon Dioxide (21-32) mmol/L Anion Gap (3-11) BUN (7-18) mg/dl Creatinine (0.6-1.4) mg/dl Est Cr Clr Drug Dosing ml/min Est GFR ( Amer) Est GFR (Non-Af Amer) BUN/Creatinine Ratio (10-20) Glucose (70-99) mg/dl POC Glucose (70-99) mg/dl Estimat Average Glucose mg/dl Hemoglobin A1c (4.5-5.6) % Osmolality (280-300) mOsm/kg Lactate 2.9 H* (0.4-2.0) mmol/L Calcium (8.5-10.1) mg/dl Phosphorus (2.5-4.9) mg/dl Magnesium 2.6 H (1.8-2.4) mg/dl Total Bilirubin (0.2-1) mg/dl AST 11 L (15-37) U/L ALT (12-78) U/L Alkaline Phosphatase (45-117) U/L Troponin I < 0.015 (0-0.045) ng/ml Total Protein (6.4-8.2) gm/dl Albumin (3.4-5.0) gm/dl Globulin (2.5-4.0) gm/dl Albumin/Globulin Ratio (0.9-2) Lipase 91 (73-393) U/L Beta-Hydroxybutyric Acd 3.79 H (0.2-2.81) mg/dl TSH 1.990 (0.300-4.500) uIu/ml Urine Color Yellow Urine Appearance Clear (Clear) Urine pH 5.5 (4.5-7.5) Ur Specific Allred 1.031 H (1.000-1.030) Urine Protein Negative (Negative) Urine Glucose (UA) 3+ H (Negative) Urine Ketones Negative (Negative) Urine Blood Negative (Negative) Urine Nitrite Negative (Negative) Urine Bilirubin Negative (Negative) Urine Urobilinogen Negative (Negative) Ur Leukocyte Esterase Negative (Negative) COVID-19 Eval Order SARS-CoV-2 (PCR) (Negative) Influenza Type A (PCR) (Neg) Influenza Type B (PCR) (Neg) RSV (RT-PCR) (Neg) 11/01/20 11/01/20 11/01/20 Range/Units 19:24 20:25 21:22 WBC (4.8-10.8) K/uL RBC (4.7-6.1) M/uL Hgb (14.0-18.0) g/dL Hct (42-52) % MCV (80-100) fL MCH (25-34) pg MCHC (32-36) g/dL RDW Std Deviation (36.4-46.3) fL RDW Coeff of Baldo (11.5-14.5) % Plt Count (130-400) K/uL MPV (7.4-10.4) fL Immature Gran % (Auto) % Neut % (Auto) % Lymph % (Auto) % Emanuel % (Auto) % Eos % (Auto) % Baso % (Auto) % Neut # (Auto) (1.4-6.5) K/uL Lymph # (Auto) (1.2-3.4) K/uL Emanuel # (Auto) (0.11-0.59) K/uL Eos # (Auto) (0-0.5) K/uL Baso # (Auto) (0-0.2) K/uL Immature Gran # (Auto) (0.00-0.02) K/uL PT (9.0-12.0) Seconds INR (0.9-1.1) APTT (21.0-31.0) Seconds PTT Ratio Sodium (136-145) mmol/L Potassium (3.5-5.1) mmol/L Chloride (98-107) mmol/L Carbon Dioxide (21-32) mmol/L Anion Gap (3-11) BUN (7-18) mg/dl Creatinine (0.6-1.4) mg/dl Est Cr Clr Drug Dosing ml/min Est GFR ( Amer) Est GFR (Non-Af Amer) BUN/Creatinine Ratio (10-20) Glucose (70-99) mg/dl POC Glucose > 600 H* 597 H* (70-99) mg/dl Estimat Average Glucose mg/dl Hemoglobin A1c (4.5-5.6) % Osmolality (280-300) mOsm/kg Lactate 2.5 H* (0.4-2.0) mmol/L Calcium (8.5-10.1) mg/dl Phosphorus (2.5-4.9) mg/dl Magnesium (1.8-2.4) mg/dl Total Bilirubin (0.2-1) mg/dl AST (15-37) U/L ALT (12-78) U/L Alkaline Phosphatase (45-117) U/L Troponin I (0-0.045) ng/ml Total Protein (6.4-8.2) gm/dl Albumin (3.4-5.0) gm/dl Globulin (2.5-4.0) gm/dl Albumin/Globulin Ratio (0.9-2) Lipase (73-393) U/L Beta-Hydroxybutyric Acd (0.2-2.81) mg/dl TSH (0.300-4.500) uIu/ml Urine Color Urine Appearance (Clear) Urine pH (4.5-7.5) Ur Specific Allred (1.000-1.030) Urine Protein (Negative) Urine Glucose (UA) (Negative) Urine Ketones (Negative) Urine Blood (Negative) Urine Nitrite (Negative) Urine Bilirubin (Negative) Urine Urobilinogen (Negative) Ur Leukocyte Esterase (Negative) COVID-19 Eval Order SARS-CoV-2 (PCR) (Negative) Influenza Type A (PCR) (Neg) Influenza Type B (PCR) (Neg) RSV (RT-PCR) (Neg) 11/01/20 11/01/20 11/01/20 Range/Units 21:22 21:44 22:40 WBC (4.8-10.8) K/uL RBC (4.7-6.1) M/uL Hgb (14.0-18.0) g/dL Hct (42-52) % MCV (80-100) fL MCH (25-34) pg MCHC (32-36) g/dL RDW Std Deviation (36.4-46.3) fL RDW Coeff of Baldo (11.5-14.5) % Plt Count (130-400) K/uL MPV (7.4-10.4) fL Immature Gran % (Auto) % Neut % (Auto) % Lymph % (Auto) % Emanuel % (Auto) % Eos % (Auto) % Baso % (Auto) % Neut # (Auto) (1.4-6.5) K/uL Lymph # (Auto) (1.2-3.4) K/uL Emanuel # (Auto) (0.11-0.59) K/uL Eos # (Auto) (0-0.5) K/uL Baso # (Auto) (0-0.2) K/uL Immature Gran # (Auto) (0.00-0.02) K/uL PT (9.0-12.0) Seconds INR (0.9-1.1) APTT (21.0-31.0) Seconds PTT Ratio Sodium 126 L (136-145) mmol/L Potassium 4.4 (3.5-5.1) mmol/L Chloride 90 L (98-107) mmol/L Carbon Dioxide 31 (21-32) mmol/L Anion Gap 6.0 (3-11) BUN 44 H (7-18) mg/dl Creatinine 1.78 H (0.6-1.4) mg/dl Est Cr Clr Drug Dosing 54.8 ml/min Est GFR ( Amer) 44.4 Est GFR (Non-Af Amer) 38.3 BUN/Creatinine Ratio 24.9 H (10-20) Glucose 599 H* (70-99) mg/dl POC Glucose 570 H* (70-99) mg/dl Estimat Average Glucose mg/dl Hemoglobin A1c (4.5-5.6) % Osmolality (280-300) mOsm/kg Lactate (0.4-2.0) mmol/L Calcium 10.8 H (8.5-10.1) mg/dl Phosphorus 3.3 (2.5-4.9) mg/dl Magnesium (1.8-2.4) mg/dl Total Bilirubin (0.2-1) mg/dl AST (15-37) U/L ALT (12-78) U/L Alkaline Phosphatase (45-117) U/L Troponin I (0-0.045) ng/ml Total Protein (6.4-8.2) gm/dl Albumin (3.4-5.0) gm/dl Globulin (2.5-4.0) gm/dl Albumin/Globulin Ratio (0.9-2) Lipase (73-393) U/L Beta-Hydroxybutyric Acd 4.25 H (0.2-2.81) mg/dl TSH (0.300-4.500) uIu/ml Urine Color Urine Appearance (Clear) Urine pH (4.5-7.5) Ur Specific Allred (1.000-1.030) Urine Protein (Negative) Urine Glucose (UA) (Negative) Urine Ketones (Negative) Urine Blood (Negative) Urine Nitrite (Negative) Urine Bilirubin (Negative) Urine Urobilinogen (Negative) Ur Leukocyte Esterase (Negative) COVID-19 Eval Order [facility] at [facility] SARS-CoV-2 (PCR) (Negative) Influenza Type A (PCR) (Neg) Influenza Type B (PCR) (Neg) RSV (RT-PCR) (Neg) 11/01/20 Range/Units 22:40 WBC (4.8-10.8) K/uL RBC (4.7-6.1) M/uL Hgb (14.0-18.0) g/dL Hct (42-52) % MCV (80-100) fL MCH (25-34) pg MCHC (32-36) g/dL RDW Std Deviation (36.4-46.3) fL RDW Coeff of Baldo (11.5-14.5) % Plt Count (130-400) K/uL MPV (7.4-10.4) fL Immature Gran % (Auto) % Neut % (Auto) % Lymph % (Auto) % Emanuel % (Auto) % Eos % (Auto) % Baso % (Auto) % Neut # (Auto) (1.4-6.5) K/uL Lymph # (Auto) (1.2-3.4) K/uL Emanuel # (Auto) (0.11-0.59) K/uL Eos # (Auto) (0-0.5) K/uL Baso # (Auto) (0-0.2) K/uL Immature Gran # (Auto) (0.00-0.02) K/uL PT (9.0-12.0) Seconds INR (0.9-1.1) APTT (21.0-31.0) Seconds PTT Ratio Sodium (136-145) mmol/L Potassium (3.5-5.1) mmol/L Chloride (98-107) mmol/L Carbon Dioxide (21-32) mmol/L Anion Gap (3-11) BUN (7-18) mg/dl Creatinine (0.6-1.4) mg/dl Est Cr Clr Drug Dosing ml/min Est GFR ( Amer) Est GFR (Non-Af Amer) BUN/Creatinine Ratio (10-20) Glucose (70-99) mg/dl POC Glucose (70-99) mg/dl Estimat Average Glucose mg/dl Hemoglobin A1c (4.5-5.6) % Osmolality (280-300) mOsm/kg Lactate (0.4-2.0) mmol/L Calcium (8.5-10.1) mg/dl Phosphorus (2.5-4.9) mg/dl Magnesium (1.8-2.4) mg/dl Total Bilirubin (0.2-1) mg/dl AST (15-37) U/L ALT (12-78) U/L Alkaline Phosphatase (45-117) U/L Troponin I (0-0.045) ng/ml Total Protein (6.4-8.2) gm/dl Albumin (3.4-5.0) gm/dl Globulin (2.5-4.0) gm/dl Albumin/Globulin Ratio (0.9-2) Lipase (73-393) U/L Beta-Hydroxybutyric Acd (0.2-2.81) mg/dl TSH (0.300-4.500) uIu/ml Urine Color Urine Appearance (Clear) Urine pH (4.5-7.5) Ur Specific Allred (1.000-1.030) Urine Protein (Negative) Urine Glucose (UA) (Negative) Urine Ketones (Negative) Urine Blood (Negative) Urine Nitrite (Negative) Urine Bilirubin (Negative) Urine Urobilinogen (Negative) Ur Leukocyte Esterase (Negative) COVID-19 Eval Order SARS-CoV-2 (PCR) NEGATIVE (Negative) Influenza Type A (PCR) Negative (Neg) Influenza Type B (PCR) Negative (Neg) RSV (RT-PCR) Negative (Neg) Imaging Data Radiologist's Impression: Chest X-Ray 11/01/20 17:47 SINGLE VIEW CHEST CLINICAL HISTORY: Hyperglycemia. FINDINGS: An AP, portable, upright chest radiograph is compared to study dated 07/16/2020. Correlation is made with chest CT dated 11/10/2018. A 2-lead cardiac pacemaker is unchanged in position. The heart is enlarged noting atherosclerotic calcification of the thoracic aorta. The pulmonary vasculature is noncongested. Chronic interstitial thickening is similar to previous. There is bibasilar scarr ing/atelectasis. No airspace consolidation or large pleural effusion is identified. Postoperative change is noted in the right midlung. No pneumothorax is seen. The skeletal structures are osteopenic. Healed right-sided rib fractures are again noted. IMPRESSION: 1. Cardiomegaly and cardiac pacemaker. There is no radiographic evidence of congestive failure. 2. No airspace consolidation or large pleural effusion is identified. ACT 112: Negative or not required by law. Electronically signed by: Anupam Gonzalez M.D. 11/01/2020 6:03 PM ECG Data Attestation: I personally reviewed and interpreted this ECG as follows: Indication: + other Rate (beats per minute): 60 Rhythm: + normal sinus ECG Intervals/blocks: + Right Bundle branch block ECG [place]: + Left axis deviation ECG ST segments: + Nonspecific ST abnormalities MDM Narrative This is a 70-year-old male with a complicated past medical history who presents after seeing his PCP for routine visit and finding his glucose was markedly elevated. Upon additional discussion patient did admit to not realizing the batteries in his insulin pump had gone and had stopped running. He believes this likely happened sometime overnight and he did not check his sugar prior to going to his routine doctor's office at 9 AM. He states he has since replaced the batteries and restarted the pump which I did confirm at bedside during my exam. Patient was asymptomatic. Labs are drawn and sent as a precaution and patient started on gentle IV fluid hydration as he does have a prior history of CHF. Patient did have a markedly elevated glucose, no evidence of DKA. Patient did have an elevated lactic acid. After some IV fluid rehydration this was rechecked and was trending down. Glucose however had trended down very little after 2 doses of 10 units of insulin in addition to the fluids. Patient also found to be subtherapeutic on his INR. Patient does have a history of blood clots as well as a flutter and is chronically anticoagulated. Patient states this was known to him at his doctor's office and he was given additional direction on how to change his current Coumadin regimen. Due to patient's risk and subtherapeutic nature he was covered with a dose of Lovenox. Given glucose had not improved significantly enough after 5 hours to consider discharge home, patient was started on insulin drip and case discussed with the hospitalist for additional evaluation and management. Patient's creatinine elevated however this is consistent with prior levels of his CKD upon review of EMR. Patient continued to be hemodynamically stable throughout and well- appearing, continued to deny any symptoms. An order was placed for continuous cardiac monitoring. The monitor shows a rate of _66_ with _normal sinus_ rhythm. Impression & Plan Hyperglycemia, Complication of insulin pump, CKD (chronic kidney disease), Subtherapeutic international normalized ratio (INR) Discharge Plan Visit Data Chief Complaint: Hyperglycemia Stated Complaint: HIGH SUGAR ED Provider: Nicky Post Discharge Problem: Hyperglycemia, Complication of insulin pump, CKD (chronic kidney disease), Subtherapeutic international normalized ratio (INR) Patient Disposition: Admitted As Inpatient Discharge Instructions Interventions: ED Discharge Assessment Last Done: 11/02/20 01:43 Discharge Problem: Complication of insulin pump Qualifiers: Device complication type: mechanical Mechanical complication type: mechanical breakdown Encounter type: initial encounter Qualified Code(s): T85.614A - Breakdown (mechanical) of insulin pump, initial encounter CKD (chronic kidney disease) Qualifiers: Chronic kidney disease stage: unspecified stage Qualified Code(s): N18.9 - Chronic kidney disease, unspecified
[2020-11-01 19:05] LABS: Potassium 4.7 mmol/L (3.5-5.1)
[2020-11-01 19:21] LABS: Aspartate Aminotransferase 11 U/L (15-37); Beta-Hydroxybutyrate 3.79 mg/dl (0.2-2.81); Lipase 91 U/L (73-393); Magnesium 2.6 mg/dl (1.8-2.4); Troponin I < 0.015 ng/ml (0-0.045)
[2020-11-01 19:27] LABS: Appearance Urine Clear (Clear); Bilirubin Urine Negative (Negative); Blood Urine Negative (Negative); Color Urine Yellow; Glucose Urine UA 3+ (Negative); Ketones Urine Negative (Negative); Leukocyte Esterase Urine Negative (Negative); Nitrite Urine Negative (Negative); Protein Urine Negative (Negative); Specific Gravity Urine 1.031 (1.000-1.030); Urobilinogen Urine Negative (Negative); pH Urine 5.5 (4.5-7.5)
[2020-11-01] MEDS ORDERED: NovoLIN-R INSULIN PER UNIT CHARGE SC STA ×2 (19:40→20:57)
[2020-11-01] MEDS ORDERED: cephALEXin 250 MG CAP PO ONE (20:18)
[2020-11-01] MEDS ORDERED: FLUCONAZOLE 200 MG/5 ML UDP PO STA (20:21)
[2020-11-01] MEDS ORDERED: FLUCONAZOLE 100 MG TAB PO ONE (20:45)
[2020-11-01 22:06] LABS: BUN Creatinine Ratio 24.9 (10-20); Calcium 10.8 mg/dl (8.5-10.1); Creatinine Clr Calc Pharmacy 54.8 ml/min; Est GFR (African American) 44.4; Est GFR (Non-African American) 38.3; Potassium 4.4 mmol/L (3.5-5.1)
[2020-11-01] MEDS ORDERED: GLUCOSE 40% GEL 15 GM TUBE PO PRN (22:14)
[2020-11-01] MEDS ORDERED: GLUCAGON FOR INJ 1 MG VIAL SQ PRN (22:14)
[2020-11-01] MEDS ORDERED: GLUCOSE 10 TABS/TUBE PO PRN (22:14)
[2020-11-01] MEDS ORDERED: HHS GOAL RANGE 250-350 mg/dl ONE (22:14)
[2020-11-01] MEDS ORDERED: INSULIN REGULAR 250 UNITS in SODIUM CHLORIDE 0.9% 247.5 ML IV SCH (22:15)
[2020-11-01 22:24] LABS: Beta-Hydroxybutyrate 4.25 mg/dl (0.2-2.81)
[2020-11-01] MEDS ORDERED: ENOXAPARIN 1.5 MG/KG SC STA (22:42)
[2020-11-01 22:43] LABS: Phosphorus 3.3 mg/dl (2.5-4.9)
[2020-11-01] MEDS ORDERED: ENOXAPARIN 150 MG/ML SYR SC STA (23:00)
[2020-11-01 23:31] LABS: Influenza A virus by PCR Negative (Neg); Influenza B virus by PCR Negative (Neg); RSV by PCR Negative (Neg); SARS CoV2 RNA(COVID-19) InHosp NEGATIVE (Negative)
[2020-11-01] MEDS ORDERED: WARFARIN SOD 4 MG TAB PO ONE (23:37)
[2020-11-01] MEDS ORDERED: Heparin IV Adult Wt-Based Standard *NO* Bolus Protocol ONE (23:37)
[2020-11-01] MEDS ORDERED: HEPARIN SODIUM/DEXTROSE 25,000 UNITS/500 ML BAG IV SCH (23:52)
--- NOTE | 2020-11-01 23:53 | History & Physical Report ---
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 Medication compliance Intertrigo with secondary cellulitis, left inframammary area Patient not septic for now. COPD/ILD as per records, pulmonary status at baseline hypothyroidism, euthyroid as of today's TSH CRI, creatinine at baseline chronic anemia, hemoglobin at baseline history of MRSA as per records Medical telemetry Pharmacy glycemic control consult DM education Doxycycline, topical antifungal for for left inframammary cellulitis Monitor lactic acid response to IVF, hold home diuretics for now until patient euvolemic PT OT eval Social service RE discharge planning DVT prophylaxis. Weight-based Lovenox-Coumadin bridge therapy INR goal between 2 and 3 Full code Attempted to contact patient daughter (Ms. Bing Andujar, contact #[phone]) to give update on plan of care. No answer. Will request AM provider to reattempt contact in a.m. Text document was generated using [employer] voice recognition software. It may contain grammatical or spelling errors. Kindly contact undersigned for clarification of any documentation item in question. History of Present Illness Chief Complaint: High blood sugars, abnormal blood work Primary Care Provider: Scotty Jara DO History obtained from patient and records. Patient is a fair historian. Medical history is significant for chronic diastolic heart failure (EF 55 to 60%, TTE 2019), SSS sp PPM/PE on anticoagulation, COPD/ILD as per records, SALAS on CPAP, DM2 on insulin pump, hypothyroidism, CRI (baseline creatinine 1.5 to 2.2), chronic anemia (baseline hemoglobin 13), history of MRSA as per records. Last confinement July 2020 for encephalopathy secondary to hyperglycemic crisis. Rehab recommended by Occupational Therapy during last confinement but patient went home. Patient seen at the ER a few days later for hyperglycemia. Patient was not wearing insulin pump at time of [facility] at home visit last week as per documentation. Patient seen today at [facility] clinic for his diabetes. Blood sugars uncontrolled (greater than 400 most of the last 4 days) as per pharmacist note. Patient insulin pump has been off since 6 PM last night due to battery. Patient not adherent to regimen, not sure if patient able to see the screen to tell that pump was not functional as per pharmacist note. Patient claims he replaced insulin pump battery prior to going to the doctor's office however. BSG at office was noted to be 600s. Patient denies chest pain, S OB, cough, headache, abdominal pain, diarrhea, dysuria symptoms. Admits to being thirsty and hungry. Patient seen at PCP's office after pharmacist visit. MMSE improved at 26/ compared to 23 3 months ago. Outpatient Neurology consultation contemplated for memory issues. Serum glucose on outpatient blood work done today noted to be greater than 750. Patient sent to the ER for evaluation. IV insulin started at the ER. Keflex given for cellulitis under left breast. Weight-based Lovenox subcutaneous administered at the ER for subtherapeutic INR. MEDICAL HISTORY: As above. SURGERIES: Knee surgery, hernia repair, urologic procedures, cataract surgery, entropion surgery, Carpal tunnel surgery, cholecystectomy, lung surgery FAMILY HISTORY: Heart disease. PERSONAL AND SOCIAL HISTORY: Nonsmoker. No chronic intake of alcoholic beverages. 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 Allergies Allergy/AdvReac Type Severity Reaction Status Date / Time No Known Allergies Allergy Verified 11/01/20 18:25 Home Medications Medication Instructions Recorded Confirmed Type digoxin 0.125 mg PO QPM #0 07/13/16 11/01/20 History aspirin 81 mg tablet,delayed 81 mg PO QAM 05/11/18 11/01/20 History release levothyroxine 50 mcg PO QAM 06/24/18 11/01/20 History duloxetine 60 mg capsule,delayed 60 mg PO QAM 08/31/18 11/01/20 History release cholecalciferol (vitamin D3) 50 2,000 units PO QAM 05/13/19 11/01/20 History mcg (2,000 unit) capsule allopurinol 300 mg tablet 300 mg PO QAM 05/25/19 11/01/20 History levothyroxine 200 mcg tablet 200 mcg PO QAM #0 tab 05/25/19 11/01/20 History omeprazole 20 mg capsule,delayed 20 mg PO QAM 05/25/19 11/01/20 History release tramadol 50 mg PO BID PRN 05/30/19 11/01/20 History potassium chloride [Klor-Con M20] 20 meq PO DAILY 07/12/19 11/01/20 History acetaminophen 500 mg capsule 1,000 mg PO Q6H PRN 12/14/19 11/01/20 History albuterol sulfate 90 mcg/actuation 2 puffs INH QID PRN gm 12/14/19 11/01/20 History aerosol inhaler atorvastatin 20 mg tablet 10 mg PO HS 12/14/19 11/01/20 History gabapentin 300 mg capsule 300 mg PO TID 12/14/19 11/01/20 History meclizine 12.5 mg tablet 12.5 mg PO TID PRN 12/14/19 11/01/20 History [facility] 1 cap PO BID 02/13/20 11/01/20 History bupropion HCl 150 mg PO QAM 02/13/20 11/01/20 History insulin regular hum U-500 conc 0 unit CONTINUOUS SUBCUTANEOUS 02/13/20 11/01/20 History INFUSION CONTINOUS metoprolol succinate 150 mg PO BID 02/13/20 11/01/20 History warfarin 2 mg PO WK 02/13/20 11/01/20 History warfarin 4 mg PO 6XWK 02/13/20 11/01/20 History colchicine 0.6 mg capsule 0.6 mg PO Q OTHER DAY #0 cap 03/02/20 11/01/20 History oxybutynin chloride 10 mg 10 mg PO DAILY 03/29/20 11/01/20 History tablet,extended release 24 hr diclofenac sodium 4 g TOPICAL BID PRN 06/19/20 11/01/20 History multivitamin with minerals 1 tab PO DAILY 06/19/20 11/01/20 History [Multiple Vitamin-Minerals] nitroglycerin 0.4 mg SUBLINGUAL UD PRN 06/19/20 11/01/20 History sennosides-docusate sodium [Senna 1 tab-cap PO BID PRN 07/16/20 11/01/20 History with Docusate Sodium] furosemide 80 mg PO BID 11/01/20 11/01/20 History magnesium oxide 400 mg PO DAILY 11/01/20 11/01/20 History metolazone [Zaroxolyn] 2.5 mg PO DAILY PRN 11/01/20 11/01/20 History spironolactone [Aldactone] 25 mg PO DAILY 11/01/20 11/01/20 History triamcinolone acetonide 1 applic TOPICAL BID PRN 11/01/20 11/01/20 History Past Med/Surg History Medical History Abnormal chest x-ray 06/18/20 right hilar opacity, f/u recommended Arthritis Atrial fibrillation paroxysmal Atrial flutter Bifascicular block CAD (coronary artery disease) Cardiomyopathy Chronic anticoagulation Chronic diastolic CHF (congestive heart failure) Chronic venous insufficiency CKD (chronic kidney disease) stage 3, GFR 30-59 ml/min Claustrophobia Closed fracture of thyroid cartilage COPD, moderate Depression Diabetes mellitus, type 2 insulin pump Fatty liver Gout Hyperlipidemia Hypertension Hypothyroidism Iatrogenic pulmonary embolism Interstitial lung disease Morbid obesity MRSA infection Nephrolithiasis Nocturnal hypoxemia SALAS (obstructive sleep apnea) Osteoarthritis Paroxysmal atrial fibrillation Prolonged QT interval Pulmonary embolism B/L- 5+ years ago Sarcoidosis possible- evaluated by pulmonary; felt no active sarcoidosis and would not merit steroid therapy given weight/diabetic state. 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 "prior EF of 25% while in aflutter, subsequently normal in NSR" Surgical History H/O cardiac radiofrequency ablation H/O prior ablation treatment History of arthroscopic knee surgery History of bronchoscopy History of cataract surgery local anesthesia only per pt History of cholecystectomy History of extraction of renal calculus History of lung surgery thoracoscopy, right VATS, wedge resection History of umbilical hernia repair Hx of carpal tunnel repair Pacemaker Implanted 02/2017 secondary to Sinus node dysfunction/tachy sherry syndrome/3rd degree AVB [employer] Pacer check 12/24/17 Status post incision and drainage Family History Mother Cancer Social History Smoking Status: Unknown if ever smoked Second Hand Exposure: No; Hx Alcohol Use: No Hx Substance Use: No Preferred Language: Colombian Communication Ability: Effective Visual Impairment: No Limitations Hearing Ability: Normal River Expedition Guide Required: No Beliefs That Will Affect Care: None marital status: Current Living Situation: Alone Current Living Situation Comment: Lives @ home alone at this time current occupational status: retired How many Children do You have: 2 Other Information That Helps Us Care for You: No Feels Safe at Home: Yes Safety Concerns: Feels Safe At This Time Diet Comment: FLUID RESTRICTION during the past year weight has: other Assistive Devices: Glasses, Special Shoe and Wheelchair Assistive Devices Comment: Personal Wheelchair, glasses and shoes at bedside Review of Systems Review of Systems: As per HPI, all 10 systems reviewed, all other ROS negative Physical Exam Physical Exam: GENERAL: Comfortable, morbidly obese, pleasant, no respiratory distress SKIN: Pallor, warm HEENT: Alopecia, pale palpebral conjunctivae, no ptosis, dry buccal mucosa NECK : Supple, short neck, no tenderness CHEST : Gynecomastia; erythematous induration, left inframammary area fold with minimal tenderness; lungs CTA HEART : RRR, no obvious murmurs ABDOMEN: Some distention, nontender EXTREMITIES : Minimal LE swelling, no LE tenderness, no other conspicuous deformities noted NEUROLOGIC : Coherent, no facial asymmetry, no other gross focality Results & Data Results & Data ([facility]) Vital Signs (Past 12 Hours) Vital Signs Temp Pulse Pulse Resp BP BP Pulse Ox 11/01/20 22:33 67 11/01/20 22:00 65 22 123/52 L 93 11/01/20 21:30 63 24 104/46 L 94 11/01/20 21:23 63 22 114/48 L 94 11/01/20 21:00 66 22 96/71 L 11/01/20 20:34 68 18 141/72 H 93 11/01/20 20:00 64 22 114/54 L 11/01/20 19:30 62 19 131/62 95 11/01/20 19:19 62 22 113/63 93 11/01/20 19:00 62 21 11/01/20 18:42 86 96 11/01/20 18:17 62 15 115/50 L 94 11/01/20 18:13 62 24 115/50 L 11/01/20 18:00 62 24 11/01/20 17:44 63 20 11/01/20 17:38 63 24 99/55 L 11/01/20 17:35 63 18 99/55 L 93 11/01/20 16:52 36.6 C 67 16 133/71 96 Laboratory Results Laboratory Results WBC 5.95 K/uL (4.8-10.8) 11/01/20 17: RBC 4.57 M/uL (4.7-6.1) L 11/01/20 17:30 Hgb 13.6 g/dL (14.0-18.0) L 11/01/20 17: Hct 39.4 % (42-52) L 11/01/20 17: MCV 86.2 fL (80-100) 11/01/20 17: MCH 29.8 pg (25-34) 11/01/20 17: MCHC 34.5 g/dL (32-36) 11/01/20 17: RDW Std Deviation 43.0 fL (36.4-46.3) 11/01/20: RDW Coeff of Baldo 13.9 % (11.5-14.5) 11/01/20: Plt Count 151 K/uL (130-400) 11/01/20 17: MPV 11.8 fL (7.4-10.4) H 11/01/20 17: Immature Gran % (Auto) 0.2 % 11/01/20: Neut % (Auto) 65.6 % 11/01/20 17:30 Lymph % (Auto) 22.0 % 11/01/20 17:30 [place] % (Auto) 9.9 % 11/01/20 17: Eos % (Auto) 2.0 % 11/01/20 17: Baso % (Auto) 0.3 % 11/01/20:30 Neut # (Auto) 3.90 K/uL (1.4-6.5) 11/01/20 17:30 Lymph # (Auto) 1.31 K/uL (1.2-3.4) 11/01/20 17:30 [place] # (Auto) 0.59 K/uL (0.11-0.59) 11/01/20 17:30 Eos # (Auto) 0.12 K/uL (0-0.5) 11/01/20 17: Baso # (Auto) 0.02 K/uL (0-0.2) 11/01/20 17:30 Immature Gran # (Auto) 0.01 K/uL (0.00-0.02) 11/01/20 17:30 PT 11.9 Seconds (9.0-12.0) 11/01/20 17:30 INR 1.2 (0.9-1.1) H 11/01/20 17:30 APTT 29.3 Seconds (21.0-31.0) 11/01/20 17:30 PTT Ratio 1.1 11/01/20 17:30 Sodium 126 mmol/L (136-145) L 11/01/20 21: Potassium 4.4 mmol/L (3.5-5.1) 11/01/20 21: Chloride 90 mmol/L (98-107) L 11/01/20 21: Carbon Dioxide 31 mmol/L (21-32) 11/01/20 21: Anion Gap 6.0 (3-11) 11/01/20 21: BUN 44 mg/dl (7-18) H 11/01/20 21:22 Creatinine 1.78 mg/dl (0.6-1.4) H 11/01/20 21:22 Est Cr Clr Drug Dosing 54.8 ml/min 11/01/20 21:22 Est GFR ( Amer) 44.4 11/01/20 21:22 Est GFR (Non-Af Amer) 38.3 11/01/20 21:22 BUN/Creatinine Ratio 24.9 (10-20) H 11/01/20 21:22 Glucose 599 mg/dl (70-99) H* 11/01/20 21:22 POC Glucose 570 mg/dl (70-99) H* 11/01/20 21:44 Lactate 2.5 mmol/L (0.4-2.0) H* 11/01/20 21: Calcium 10.8 mg/dl (8.5-10.1) H 11/01/20 21:22 Phosphorus 3.3 mg/dl (2.5-4.9) 11/01/20 21: Magnesium 2.6 mg/dl (1.8-2.4) H 11/01/20 18:39 Total Bilirubin 1.5 mg/dl (0.2-1) H 11/01/20 17:30 AST 11 U/L (15-37) L 11/01/20 18:39 ALT 20 U/L (12-78) 11/01/20 17:30 Alkaline Phosphatase 97 U/L (45-117) 11/01/20 17:30 Troponin I < 0.015 ng/ml (0-0.045) 11/01/20 18:39 Total Protein 7.8 gm/dl (6.4-8.2) 11/01/20 17:30 Albumin 3.4 gm/dl (3.4-5.0) 11/01/20 17:30 Globulin 4.4 gm/dl (2.5-4.0) H 11/01/20 17:30 Albumin/Globulin Ratio 0.8 (0.9-2) L 11/01/20 17:30 Lipase 91 U/L (73-393) 11/01/20 18:39 Beta-Hydroxybutyric Acd 4.25 mg/dl (0.2-2.81) H 11/01/20 21:22 TSH 1.990 uIu/ml (0.300-4.500) 11/01/20 18:39 Urine Color Yellow 11/01/20 18:40 Urine Appearance Clear (Clear) 11/01/20 18:40 Urine pH 5.5 (4.5-7.5) 11/01/20 18:40 Ur Specific [place] 1.031 (1.000-1.030) H 11/01/20 18:40 Urine Protein Negative (Negative) 11/01/20 18:40 Urine Glucose (UA) 3+ (Negative) H 11/01/20 18:40 Urine Ketones Negative (Negative) 11/01/20 18:40 Urine Blood Negative (Negative) 11/01/20 18:40 Urine Nitrite Negative (Negative) 11/01/20 18:40 Urine Bilirubin Negative (Negative) 11/01/20 18:40 Urine Urobilinogen Negative (Negative) 11/01/20 18:40 Ur Leukocyte Esterase Negative (Negative) 11/01/20 18:40 COVID-19 Eval Order [facility] at [facility] 11/01/20 22:40 SARS-CoV-2 (PCR) NEGATIVE (Negative) 11/01/20 22:40 Influenza Type A (PCR) Negative (Neg) 11/01/20 22:40 Influenza Type B (PCR) Negative (Neg) 11/01/20 22:40 RSV (RT-PCR) Negative (Neg) 11/01/20 22:40 Impressions Chest X-Ray 11/01/20 17:47 SINGLE VIEW CHEST CLINICAL HISTORY: Hyperglycemia. FINDINGS: An AP, portable, upright chest radiograph is compared to study dated 07/16/2020. Correlation is made with chest CT dated 11/10/2018. A 2-lead cardiac pacemaker is unchanged in position. The heart is enlarged noting atherosclerotic calcification of the thoracic aorta. The pulmonary vasculature is noncongested. Chronic interstitial thickening is similar to previous. There is bibasilar scarring/atelectasis. No airspace consolidation or large pleural effusion is identified. Postoperative change is noted in the right midlung. No pneumothorax is seen. The skeletal structures are osteopenic. Healed right-sided rib fractures are again noted. IMPRESSION: 1. Cardiomegaly and cardiac pacemaker. There is no radiographic evidence of congestive failure. 2. No airspace consolidation or large pleural effusion is identified. ACT 112: Negative or not required by law. Electronically signed by: Anupam Gonzalez M.D. 11/01/2020 6:03 PM Diagnostic Findings EKG as per my interpretation rate 60, NSR, LAD, LAFB, RBBB, J-point elevation inferior leads
[2020-11-02] MEDS ORDERED: LACTATED RINGER'S 1,000 ML IV ONE (01:12)
[2020-11-02 01:23] LABS: Beta-Hydroxybutyrate 1.82 mg/dl (0.2-2.81)
[2020-11-02] MEDS ORDERED: DOXYCYCLINE HYCLATE 100 MG in DEXTROSE 5% 100 ML IV STA (01:33)
[2020-11-02] MEDS ORDERED: PROMETHAZINE HCL 12.5 MG in SODIUM CHLORIDE 0.9% 50 ML IV PRN (02:25)
[2020-11-02] MEDS ORDERED: DOCUSATE SODIUM/SENNA 50/8.6MG TAB PO PRN (02:25)
[2020-11-02] MEDS ORDERED: NITROGLYCERIN SL 0.4 MG/TAB TAB SL PRN (02:25)
[2020-11-02] MEDS ORDERED: PHARMACY GLYCEMIC MGMT CONSULT PRN (02:29)
[2020-11-02] MEDS: LEVOTHYROXINE SODIUM 200 MCG TABLET PO SCH (05:32)
[2020-11-02] MEDS: LEVOTHYROXINE SODIUM 50 MCG TABLET PO SCH (05:32)
[2020-11-02] MEDS ORDERED: LACTATED RINGER'S 1,000 ML IV SCH (06:15)
[2020-11-02 06:31] LABS: Estimated Average Glucose 306 mg/dl; Hemoglobin A1C 12.3 % (4.5-5.6)
[2020-11-02 06:40] LABS: INR 1.2 (0.9-1.1)
[2020-11-02 06:50] LABS: Calcium 10.4 mg/dl (8.5-10.1); Creatinine Clr Calc Pharmacy 72.4 ml/min; Est GFR (Non-African American) 52.6; Potassium 3.9 mmol/L (3.5-5.1)
[2020-11-02] MEDS ORDERED: INSULIN ASPART 100 UNITS/ML 3 ML PEN SC SCH (07:30)
[2020-11-02] MEDS: OMEGA-3 (PURIFIED FISH OIL) 1 GM CAP PO SCH ×2 (07:40→20:51)
[2020-11-02] MEDS: OXYBUTYNIN CHLORIDE XL 5 MG TABCR PO SCH (07:40)
[2020-11-02] MEDS: COLCHICINE 0.6 MG TAB PO SCH (07:40)
[2020-11-02] MEDS: PANTOprazole 40 MG TAB PO SCH (07:40)
[2020-11-02] MEDS: DULoxetine HCL 60 MG CAP PO SCH (07:41)
[2020-11-02] MEDS: buPROPion XL 150 MG TABCR PO SCH (07:41)
[2020-11-02] MEDS: GABAPENTIN 300 MG CAP PO SCH ×3 (07:41→20:52)
[2020-11-02] MEDS: METOPROLOL SUCC 50MG EXT REL TAB PO SCH ×2 (07:41→20:53)
[2020-11-02] MEDS: NYSTATIN CR 15 GM TUBE EXT SCH ×2 (07:41→20:54)
[2020-11-02] MEDS: ASPIRIN 81 MG ECTAB PO SCH (07:41)
[2020-11-02 07:53] LABS: Phosphorus 2.8 mg/dl (2.5-4.9)
[2020-11-02] MEDS ORDERED: INSULIN HUMAN NPH SC ONE (09:15)
[2020-11-02] MEDS: INSULIN ASPART 100 UNITS/ML 3 ML PEN SC SCH ×4 (09:33→21:00)
[2020-11-02] MEDS ORDERED: ENOXAPARIN 150 MG/ML SYR SQ SCH (11:00)
[2020-11-02] MEDS: ENOXAPARIN 150 MG/ML SYR SQ SCH ×2 (11:29→22:57)
[2020-11-02] MEDS: CEROVITE ADV FORMULA TAB PO SCH (11:30)
--- NOTE | 2020-11-02 13:01 | Electrocardiogram Report ---
Test Reason : Blood Pressure : / mmHG Vent. Rate : 060 BPM Atrial Rate : 060 BPM P-R Int : 198 ms QRS Dur : 168 ms QT Int : 462 ms P-R-T Axes : 104 -72 037 degrees QTc Int : 462 ms Normal sinus rhythm Right bundle branch block Left anterior fascicular block Bifascicular block Abnormal ECG When compared with ECG of 16-JUL-2020 19:08, T wave inversion now evident in Inferior leads Confirmed by uLis Jones ([id number]) on 11/02/2020 1:01:18 PM Referred By: Scotty Jara Confirmed By:Todd Jones
[2020-11-02 13:11] LABS: BUN Creatinine Ratio 27.8 (10-20); Calcium 10.4 mg/dl (8.5-10.1); Creatinine Clr Calc Pharmacy 69.8 ml/min; Est GFR (African American) 58.4; Est GFR (Non-African American) 50.4; Potassium 3.9 mmol/L (3.5-5.1)
--- NOTE | 2020-11-02 14:27 | Pharmacy Report ---
Pharmacy Glycemic Short Note 2 - Date of Service November 02, 2020 - Glycemic Short BSG Results (Last 24 hours): 11/01/20 11/01/20 11/01/20 17:30 17:30 19:24 Glucose 653 H* POC Glucose > 600 H* > 600 H* 11/01/20 11/01/20 11/01/20 20:25 21:22 21:44 Glucose 599 H* POC Glucose 597 H* 570 H* 11/02/20 11/02/20 11/02/20 00:22 00:22 00:26 Glucose 443 H* POC Glucose 503 H* 400 H* 11/02/20 11/02/20 11/02/20 02:30 03:28 04:29 Glucose POC Glucose 388 H* 323 H* 333 H* 11/02/20 11/02/20 11/02/20 05:28 06:23 06:31 Glucose 206 H POC Glucose 307 H* 237 H 11/02/20 11/02/20 11/02/20 07:29 08:26 09:26 Glucose POC Glucose 198 H 167 H 172 H 11/02/20 11/02/20 11/02/20 10:31 11:29 12:30 Glucose POC Glucose 148 H 113 H 97 11/02/20 11/02/20 12:32 13:30 Glucose 97 POC Glucose 105 H OUTPATIENT ANTIDIABETIC REGIMEN: * U-500 insulin pump * ~148 units basal/day, 125 units with breakfast, 90 units with lunch, 70 units with dinner + CF of 25 ASSESSMENT: * Patient admitted with hyperglycemia secondary to insulin pump malfunction. Follows with [facility] clinic for DM management. Started on insulin drip on admission due to hyperglycemia. * Plan to transition off insulin drip this AM with SQ NPH - gave 90 units NPH this AM. Insulin drip on hold at lunch time. BSGs remain stable on recheck after insulin drip held. * Plan to start correctional insulin at dinner time. Will have scale for NPH dosing at that time. PLAN FOR INPATIENT GLYCEMIC CONTROL: * Hold outpatient oral diabetes medications * Basal insulin * NPH 90 units x 1 * NPH 10-30 units with dinner time check * Bolus insulin * NovoLog per scale ACHS or Q6hrs while NPO * Goal Range: Low 110 mg/dL - High 140 mg/dL * Correction Factor: 8 mg/dL/unit * Nutritional / Prandial insulin per carb ratio of 1 unit per 2 grams CHO consumed PLAN FOR DISCHARGE: * Likely could continue with insulin pump on discharge as long as patient feels comfortable with pump and is working correctly. Patient met with DM educator and reviewed pump together * Would recommend close follow up with MTM clinic
--- NOTE | 2020-11-02 16:30 | Electrocardiogram Report ---
Test Reason : Blood Pressure : / mmHG Vent. Rate : 101 BPM Atrial Rate : 098 BPM P-R Int : 000 ms QRS Dur : 156 ms QT Int : 408 ms P-R-T Axes : 000 -74 070 degrees QTc Int : 529 ms Atrial fibrillation with rapid ventricular response Right bundle branch block Left anterior fascicular block Bifascicular block Abnormal ECG When compared with ECG of 01-NOV-2020 17:35, Atrial fibrillation has replaced Sinus rhythm Vent. rate has increased BY 41 BPM T wave inversion no longer evident in Inferior leads QT has lengthened Confirmed by Luis Jones ([id number]) on 11/02/2020 4:29:55 PM Referred By: Scotty Jara Confirmed By:Todd Jones
[2020-11-02] MEDS: WARFARIN SOD 5 MG TAB PO SCH (17:09)
[2020-11-02] MEDS ORDERED: INSULIN HUMAN NPH SC SCH ×2 (18:00→21:00)
[2020-11-02] MEDS ORDERED: METOPROLOL TARTRATE 1 MG/ML VIAL IV PRN (18:46)
--- NOTE | 2020-11-02 18:54 | Hospitalist Progress Note ---
Date of Service November 02, 2020 Assessment & Plan (1) Hyperglycemic crisis in diabetes mellitus: present on admission with elevated BS Possible rdue to medication compliance/failed to replace battery from the insulin pump due to functional disability BS on admission above 600 with normal anion gap Most recent Hba1c 12.3 on 11/01/20 Pt was starting on insulin drip and IVF Pharmacy on board for glycemic management Insulin drip was discontinued and transition to NPH for now Continue monitor BS Paroxysmal afib Convert to afib this morning rate controlled Continue metoprolol and digoxin Will get an echo in am Continue Lovenox bridge with coumadin Hyponatremia Due to Elevated glucose Na on admission 125, now 136 Received IVF Continue monitor BMP Cellulitis Received Keflex in the ER Continue Doxycycline and topical antifungal Continue monitor COPD/ILD Clinically stable CKD stage Creatinine at baseline Disposition Pt will need placement, but he declined it DVT prophylaxis. Lovenox-Coumadin bridge therapy INR goal between 2 and 3 Full code Will try to reach daughter Ms. Bing Andujar, contact #[phone]) to give update on plan of care Admission and Anticipated Discharge Date Admission Date: November 01, 2020 Subjective Pt was seen and examined for follow up hyperglycemia Sitting in bed with no distress Pt said that he feels ok He said that he does not want to go to rehab He said that he does not want to live in a close environment Denies any chest pain, palpitation, dizziness and SOB Review of Systems Review of Systems: All systems reviewed & are unremarkable except as noted in Subjective Physical Exam Physical Exam: General- No acute distress Head- atraumatic Eyes- PERRL, EOMI, ENT- oropharynx clear Neck- supple, no JVD Lungs- clear to auscultation Chest- Gynecomastia, erythematous induration under his breast Heart- irregular rhythm; no murmur Abdomen- normal bowel sounds, soft, nontender Extremities- no calf tenderness Neuro- alert, oriented x 3; PERRL, EOMI; no facial palsy; no dysarthria Skin- warm & dry Results & Data Results & Data ([facility]) Vital Signs (Past 12 Hours) Vital Signs Temp Pulse Pulse Resp BP Pulse Ox 11/02/20 16:00 98 H 11/02/20 15:13 36.9 C 92 H 18 125/87 92 11/02/20 08:00 66 11/02/20 07:47 36.5 C 65 18 137/75 97
[2020-11-02] MEDS: ATORVASTATIN 10 MG TAB PO SCH (20:49)
[2020-11-02] MEDS: DIGOXIN 0.125 MG TAB PO SCH (20:50)
[2020-11-02] MEDS: DOXYCYCLINE HYCLATE 100 MG CAP PO SCH (20:51)
[2020-11-03] MEDS: LEVOTHYROXINE SODIUM 200 MCG TABLET PO SCH (05:33)
[2020-11-03] MEDS: LEVOTHYROXINE SODIUM 50 MCG TABLET PO SCH (05:33)
[2020-11-03 06:51] LABS: INR 1.4 (0.9-1.1); Prothrombin Time 14.2 Seconds (9.0-12.0)
[2020-11-03 07:12] LABS: Calcium 9.7 mg/dl (8.5-10.1); Creatinine Clr Calc Pharmacy 71.4 ml/min; Est GFR (African American) 59.9; Est GFR (Non-African American) 51.7; Potassium 3.8 mmol/L (3.5-5.1)
[2020-11-03] MEDS: DOXYCYCLINE HYCLATE 100 MG CAP PO SCH ×2 (08:01→21:02)
[2020-11-03] MEDS: METOPROLOL SUCC 50MG EXT REL TAB PO SCH ×2 (08:01→21:03)
[2020-11-03] MEDS: GABAPENTIN 300 MG CAP PO SCH ×3 (08:02→21:02)
[2020-11-03] MEDS: OMEGA-3 (PURIFIED FISH OIL) 1 GM CAP PO SCH ×2 (08:02→21:03)
[2020-11-03] MEDS: ASPIRIN 81 MG ECTAB PO SCH (08:02)
[2020-11-03] MEDS: PANTOprazole 40 MG TAB PO SCH (08:02)
[2020-11-03] MEDS: OXYBUTYNIN CHLORIDE XL 5 MG TABCR PO SCH (08:02)
[2020-11-03] MEDS: buPROPion XL 150 MG TABCR PO SCH (08:02)
[2020-11-03] MEDS: DULoxetine HCL 60 MG CAP PO SCH (08:02)
[2020-11-03] MEDS: NYSTATIN CR 15 GM TUBE EXT SCH ×2 (08:03→21:04)
[2020-11-03] MEDS: INSULIN ASPART 100 UNITS/ML 3 ML PEN SC SCH ×4 (08:09→21:03)
[2020-11-03] MEDS: ACETAMINOPHEN 325 MG TAB PO PRN (12:07)
[2020-11-03] MEDS: ENOXAPARIN 150 MG/ML SYR SQ SCH ×2 (12:08→22:28)
[2020-11-03] MEDS: CEROVITE ADV FORMULA TAB PO SCH (12:08)
--- NOTE | 2020-11-03 13:18 | Pharmacy Report ---
Pharmacy Glycemic Short Note 2 - Date of Service November 03, 2020 - Glycemic Short BSG Results (Last 24 hours): 11/02/20 11/02/20 11/02/20 12:32 13:30 16:33 Glucose 97 POC Glucose 105 H 80 11/02/20 11/03/20 11/03/20 20:12 06:17 07:21 Glucose 280 H POC Glucose 83 281 H 11/03/20 11:54 Glucose POC Glucose 289 H OUTPATIENT ANTIDIABETIC REGIMEN: * U-500 insulin pump * ~148 units basal/day, 125 units with breakfast, 90 units with lunch, 70 units with dinner + CF of 25 * HbA1c = 11.9% (11/01/20) ASSESSMENT: 11/03: * Patient was transitioned off the insulin drip yesterday with the use of NPH. He received 90 units of NPH in the morning and then 10 units of NPH at HS. * BSGs trended down nicely: [id number] mg/dL * Fasting was 281 mg/dL this AM * This is likely due to not receiving enough NPH last evening * Will transition patient to TID U-500 insulin today which aligns with previous admission data * Will stop carb coverage now that patient is on U-500 11/02: * Patient admitted with hyperglycemia secondary to insulin pump malfunction. Follows with [facility] clinic for DM management. Started on insulin drip on admission due to hyperglycemia. * Plan to transition off insulin drip this AM with SQ NPH - gave 90 units NPH this AM. Insulin drip on hold at lunch time. BSGs remain stable on recheck after insulin drip held. * Plan to start correctional insulin at dinner time. Will have scale for NPH dosing at that time. PLAN FOR INPATIENT GLYCEMIC CONTROL: * Basal insulin * Humulin R U-500: 80 units w/ breakfast, 70 units w/ lunch, 50-70 units w/ dinner (pending BSG) * Bolus insulin * NovoLog per scale ACHS or Q6hrs while NPO * Goal Range: Low 110 mg/dL - High 140 mg/dL * Correction Factor: 8 mg/dL/unit * NO carb coverage PLAN FOR DISCHARGE: * Likely could continue with insulin pump on discharge as long as patient feels comfortable with pump and is working correctly. Patient met with DM educator and reviewed pump together * Would recommend close follow up with MTM clinic
[2020-11-03] MEDS: CARBOHYDRATES FOR HYPOGLYCEMIA PO PRN ×4 (15:40→20:45)
[2020-11-03] MEDS: DEXTROSE 50% 50 ML SYRINGE IV PRN (16:00)
[2020-11-03] MEDS: WARFARIN SOD 5 MG TAB PO SCH (16:13)
--- NOTE | 2020-11-03 19:30 | Hospitalist Progress Note ---
Date of Service November 03, 2020 Assessment & Plan (1) Hyperglycemic crisis in diabetes mellitus: present on admission with elevated BS Possible rdue to medication compliance/failed to replace battery from the insulin pump due to functional disability BS on admission above 600 with normal anion gap Most recent Hba1c 12.3 on 11/01/20 Pt was starting on insulin drip and IVF Pharmacy on board for glycemic management Insulin drip was discontinued and transition to NPH for now Continue monitor BS Paroxysmal afib Afib with rate control Continue metoprolol and digoxin Echo showed no change compared to previous study. grossly normal LV chamber size. Normal LV systolic function without regional wall motion abnormality. Ejection fraction 56%. Continue Lovenox bridge with coumadin Hyponatremia Due to Elevated glucose Na on admission 125, now 136 Received IVF Continue monitor BMP Cellulitis Received Keflex in the ER Continue Doxycycline and topical antifungal Continue monitor COPD/ILD Clinically stable CKD stage Creatinine at baseline Disposition Pt will need placement, but he continues to decline it DVT prophylaxis. Lovenox-Coumadin bridge therapy INR goal between 2 and 3 Full code Will try to reach daughter Ms. Bing Andujar, contact #[phone]) to give update on plan of care Admission and Anticipated Discharge Date Admission Date: November 01, 2020 Subjective Pt was seen and examined for follow up hyperglycemia Sitting at the edge of the bed with no distress Pt said that he feels Ok and asking to go home He said that he does not want to go to rehab Tele monitor showed Afib with rate control Denies any chest pain, palpitation, dizziness and SOB Review of Systems Review of Systems: All systems reviewed & are unremarkable except as noted in Subjective Physical Exam Physical Exam: General- No acute distress Head- atraumatic Eyes- PERRL, EOMI, ENT- oropharynx clear Neck- supple, no JVD Lungs- clear to auscultation Chest- Gynecomastia, erythematous induration under his breast Heart- irregular rhythm; no murmur Abdomen- normal bowel sounds, soft, nontender Extremities- no calf tenderness Neuro- alert, oriented x 3; PERRL, EOMI; no facial palsy; no dysarthria Skin- warm & dry Results & Data Results & Data ([facility]) Vital Signs (Past 12 Hours) Vital Signs Temp Pulse Resp BP Pulse Ox 11/03/20 18:43 36.5 C 66 18 113/70 92 11/03/20 15:19 36.8 C 78 18 116/80 92 11/03/20 10:55 36.5 C 72 18 92/61 L 98
[2020-11-03] MEDS: DIGOXIN 0.125 MG TAB PO SCH (21:02)
[2020-11-03] MEDS: ATORVASTATIN 10 MG TAB PO SCH (21:03)
[2020-11-03] MEDS: traMADol HCL 50 MG TABLET PO PRN (23:56)
[2020-11-04] MEDS: LEVOTHYROXINE SODIUM 200 MCG TABLET PO SCH (05:30)
[2020-11-04] MEDS: LEVOTHYROXINE SODIUM 50 MCG TABLET PO SCH (05:30)
[2020-11-04 07:36] LABS: Mean Corpuscular Hemoglobin 29.3 pg (25-34); Mean Corpuscular Hgb Conc 33.3 g/dL (32-36); Mean Corpuscular Volume 87.9 fL (80-100); Mean Platelet Volume 11.8 fL (7.4-10.4); Platelet Count 136 K/uL (130-400); RDW Coefficient of Variation 14.6 % (11.5-14.5); RDW Standard Deviation 46.6 fL (36.4-46.3); Red Blood Count 4.78 M/uL (4.7-6.1); White Blood Count 5.05 K/uL (4.8-10.8)
[2020-11-04] MEDS: GABAPENTIN 300 MG CAP PO SCH ×3 (07:38→20:41)
[2020-11-04] MEDS: PANTOprazole 40 MG TAB PO SCH (07:38)
[2020-11-04] MEDS: OXYBUTYNIN CHLORIDE XL 5 MG TABCR PO SCH (07:39)
[2020-11-04] MEDS: COLCHICINE 0.6 MG TAB PO SCH (07:39)
[2020-11-04] MEDS: OMEGA-3 (PURIFIED FISH OIL) 1 GM CAP PO SCH ×2 (07:39→20:40)
[2020-11-04] MEDS: METOPROLOL SUCC 50MG EXT REL TAB PO SCH ×2 (07:39→20:41)
[2020-11-04] MEDS: CEROVITE ADV FORMULA TAB PO SCH (07:39)
[2020-11-04] MEDS: ASPIRIN 81 MG ECTAB PO SCH (07:39)
[2020-11-04] MEDS: buPROPion XL 150 MG TABCR PO SCH (07:39)
[2020-11-04] MEDS: DULoxetine HCL 60 MG CAP PO SCH (07:40)
[2020-11-04] MEDS: NYSTATIN CR 15 GM TUBE EXT SCH ×2 (07:40→20:44)
[2020-11-04] MEDS: DOXYCYCLINE HYCLATE 100 MG CAP PO SCH ×2 (07:40→20:40)
[2020-11-04 07:50] LABS: INR 1.7 (0.9-1.1); Prothrombin Time 16.7 Seconds (9.0-12.0)
[2020-11-04 08:05] LABS: Creatinine Clr Calc Pharmacy 64.6 ml/min; Est GFR (African American) 53.4
[2020-11-04] MEDS: INSULIN ASPART 100 UNITS/ML 3 ML PEN SC SCH ×4 (08:31→20:43)
--- NOTE | 2020-11-04 11:19 | Pharmacy Report ---
Pharmacy Glycemic Short Note 2 - Date of Service November 04, 2020 - Glycemic Short BSG Results (Last 24 hours): 11/03/20 11/03/20 11/03/20 11:54 15:33 15:34 POC Glucose 289 H 49 L* 49 L* 11/03/20 11/03/20 11/03/20 15:56 15:59 16:15 POC Glucose 39 L* 45 L* 124 H 11/03/20 11/03/20 11/03/20 18:19 20:14 20:15 POC Glucose 103 H 45 L* 50 L* 11/03/20 11/03/20 11/03/20 20:33 20:45 21:01 POC Glucose 56 L* 51 L* 86 11/03/20 11/04/20 11/04/20 22:40 05:30 07:15 POC Glucose 132 H 252 H 302 H* 11/04/20 11/04/20 11/04/20 07:15 07:17 07:18 POC Glucose 282 H 305 H* 329 H* OUTPATIENT ANTIDIABETIC REGIMEN: * U-500 insulin pump * ~148 units basal/day, 125 units with breakfast, 90 units with lunch, 70 units with dinner + CF of 25 * HbA1c = 11.9% (11/01/20) ASSESSMENT: 11/04: * Mr. Andujar received a total of 248 units of insulin yesterday * 150 units basal + 98 units bolus * BSGs were: [phone] mg/dL * Patient has two episodes of symptomatic hypoglycemia yesterday which was difficult to resolve. At dinner time, he required 30 g of CHO to improve his BSGs and resolve symptoms. At bedtime, he required 60 g of CHO to improve his BSGs and resolve symptoms. * Believe these episodes are related to not removing his carb ratio when U- 500 was started and then the large Novolog doses stacking and causing lows. Also, there may have been a role played by too much U-500 being given too close together. * Expectedly, BSGs trended upwards this AM as patient received uncovered carbs to resolve hypoglycemia * BSGs were: [phone] mg/dL * Will separate U-500 into BID instead of TID today to help prevent hypoglycemia. Carb ratio was removed yesterday afternoon so do not expect patient to be hypoglycemic today. 11/03: * Patient was transitioned off the insulin drip yesterday with the use of NPH. He received 90 units of NPH in the morning and then 10 units of NPH at HS. * BSGs trended down nicely: [phone] mg/dL * Fasting was 281 mg/dL this AM * This is likely due to not receiving enough NPH last evening * Will transition patient to TID U-500 insulin today which aligns with previous admission data * Will stop carb coverage now that patient is on U-500 11/02: * Patient admitted with hyperglycemia secondary to insulin pump malfunction. Follows with [facility] for DM management. Started on insulin drip on admission due to hyperglycemia. * Plan to transition off insulin drip this AM with SQ NPH - gave 90 units NPH this AM. Insulin drip on hold at lunch time. BSGs remain stable on recheck after insulin drip held. * Plan to start correctional insulin at dinner time. Will have scale for NPH dosing at that time. PLAN FOR INPATIENT GLYCEMIC CONTROL: * Basal insulin * Humulin R U-500: 80 units w/ breakfast, 70 units w/ dinner * Bolus insulin * NovoLog per scale ACHS or Q6hrs while NPO * Goal Range: Low 110 mg/dL - High 140 mg/dL * Correction Factor: 8 mg/dL/unit * NO carb coverage PLAN FOR DISCHARGE: * Likely could continue with insulin pump on discharge as long as patient feels comfortable with pump and is working correctly. Patient met with DM educator and reviewed pump together * Would recommend close follow up with MTM clinic
[2020-11-04] MEDS: ENOXAPARIN 150 MG/ML SYR SQ SCH ×2 (12:25→22:22)
--- NOTE | 2020-11-04 12:48 | Cardiology Consultation ---
Date of Consultation November 04, 2020 Assessment & Plan (1) Hyperglycemic crisis in diabetes mellitus: (2) Subtherapeutic international normalized ratio (INR): (3) Acute on chronic renal failure: (4) Cardiac pacemaker in situ: (5) Chronic diastolic CHF (congestive heart failure): (6) Paroxysmal atrial fibrillation: (7) SALAS (obstructive sleep apnea): (8) Tachy-jared syndrome: (9) Pulmonary embolism: (10) Interstitial lung disease: (11) Morbid obesity: From a cardiac standpoint the patient is doing well. Recurrence of atrial fibrillation is understandable given the clinical. Warfarin has been restarted and INR today of 1.7, obviously, goal of 2-3. We will continue warfarin along with current doses of digoxin and metoprolol. Not a good candidate for antiarrhythmic therapy at this time. No further cardiac testing intervention necessary at this time. Okay to discharge to home from a cardiac standpoint. Recommend cardiac follow-up in 1 month. History of Present Illness Reason for Consultation: paroxysmal atrial fibrillation Requesting Physician: Dr. Chino Attending Physician: Ximena Chino MD History of Present Illness It was my pleasure to see Mr. Luna in cardiac consultation today 11/04/2020 for ongoing paroxysmal atrial fibrillation. He was initially admitted on 11/01/2020 with hyperglycemic crisis. Noted to be in atrial fibrillation with rapid ventricular response at that time but spontaneously converted to sinus rhythm at 0 948 this AM. Denies any cardiac complaints specifically denies any chest palpitations, lightheadedness, or syncope Past medical history as per most recent outpatient cardiology visit: 1. Paroxysmal atrial fibrillation (AF) and atrial flutter (AFL) 1. First diagnosed in 2011 2. Failed to tolerate dronedarone 3. Amiodarone prescribed in 2012, discontinued in by Pulmonary Medicine secondary to concerns for pulmonary toxicity. 4. Recurrent AFL -2013, converting to NSR with the addition of dofetilide. 5. Recurrent AF, . 6. Status post May 10, [address] Flynn at [facility]. 1. Successful radiofrequency ablation of the cavtricuspid isthmus with creation of a bidirectional isthmus conduction block under conscious sedation. 2. He did not undergo a PVI ablation because of mild hypoxemia, volume overload on presentation. 3. Normal AV node function noted post ablation. 7. History of tachycardia mediated cardiomyopathy (TMC) with LVEF previously 25% 8. Presentation to [facility] in September 2016 following a syncope episode, observed Tachy-Jared Syndrome status post permanent pacemaker implantation with Tikosyn discontinued, metoprolol increased. 2. Chronic coumadin anticoagulation. 3. Diastolic dysfunction. 4. Hypertension 5. Dyslipidemia. 6. Diabetes 7. Obstructive sleep apnea, BiPAP therapy 8. History of bilateral pulmonary embolus 9. ? sarcoidosis. Cardiac CT on 05/09/2014 raised concern for sarcoid. He as been evaluated by [facility], Dr. Jim Cardozo MD, who did not think he has active pulmonary sarcoidosis that would merit steroid therapy especially given his weight and diabetic state. Liver CT in August 2014 revealed hepatosplenomegaly, fatty infiltration of the liver. No hepatic mass. Innumerable small stones or gravel in the gallbladder. 10. Noncompliance Allergies Allergy/AdvReac Type Severity Reaction Status Date / Time No Known Allergies Allergy Verified 11/01/20 18:25 Home Medications Medication Instructions Recorded Confirmed Type digoxin 0.125 mg PO QPM #0 07/13/16 11/01/20 History aspirin 81 mg tablet,delayed 81 mg PO QAM 05/11/18 11/01/20 History release levothyroxine 50 mcg PO QAM 06/24/18 11/01/20 History duloxetine 60 mg capsule,delayed 60 mg PO QAM 08/31/18 11/01/20 History release cholecalciferol (vitamin D3) 50 2,000 units PO QAM 05/13/19 11/01/20 History mcg (2,000 unit) capsule allopurinol 300 mg tablet 300 mg PO QAM 05/25/19 11/01/20 History levothyroxine 200 mcg tablet 200 mcg PO QAM #0 tab 05/25/19 11/01/20 History omeprazole 20 mg capsule,delayed 20 mg PO QAM 05/25/19 11/01/20 History release tramadol 50 mg PO BID PRN 05/30/19 11/01/20 History potassium chloride [Klor-Con M20] 20 meq PO DAILY 07/12/19 11/01/20 History acetaminophen 500 mg capsule 1,000 mg PO Q6H PRN 12/14/19 11/01/20 History albuterol sulfate 90 mcg/actuation 2 puffs INH QID PRN gm 12/14/19 11/01/20 History aerosol inhaler atorvastatin 20 mg tablet 10 mg PO HS 12/14/19 11/01/20 History gabapentin 300 mg capsule 300 mg PO TID 12/14/19 11/01/20 History meclizine 12.5 mg tablet 12.5 mg PO TID PRN 12/14/19 11/01/20 History [facility] 1 cap PO BID 02/13/20 11/01/20 History bupropion HCl 150 mg PO QAM 02/13/20 11/01/20 History insulin regular hum U-500 conc 0 unit CONTINUOUS SUBCUTANEOUS 02/13/20 11/01/20 History INFUSION CONTINOUS metoprolol succinate 150 mg PO BID 02/13/20 11/01/20 History warfarin 2 mg PO WK 02/13/20 11/01/20 History warfarin 4 mg PO 6XWK 02/13/20 11/01/20 History colchicine 0.6 mg capsule 0.6 mg PO Q OTHER DAY #0 cap 03/02/20 11/01/20 History oxybutynin chloride 10 mg 10 mg PO DAILY 03/29/20 11/01/20 History tablet,extended release 24 hr diclofenac sodium 4 g TOPICAL BID PRN 06/19/20 11/01/20 History multivitamin with minerals 1 tab PO DAILY 06/19/20 11/01/20 History [Multiple Vitamin-Minerals] nitroglycerin 0.4 mg SUBLINGUAL UD PRN 06/19/20 11/01/20 History sennosides-docusate sodium [Senna 1 tab-cap PO BID PRN 07/16/20 11/01/20 History with Docusate Sodium] furosemide 80 mg PO BID 11/01/20 11/01/20 History magnesium oxide 400 mg PO DAILY 11/01/20 11/01/20 History metolazone [Zaroxolyn] 2.5 mg PO DAILY PRN 11/01/20 11/01/20 History spironolactone [Aldactone] 25 mg PO DAILY 11/01/20 11/01/20 History triamcinolone acetonide 1 applic TOPICAL BID PRN 11/01/20 11/01/20 History Patient History Medical History Abnormal chest x-ray 06/18/20 right hilar opacity, f/u recommended Arthritis Atrial fibrillation paroxysmal Atrial flutter Bifascicular block CAD (coronary artery disease) Cardiomyopathy Chronic anticoagulation Chronic diastolic CHF (congestive heart failure) Chronic venous insufficiency CKD (chronic kidney disease) stage 3, GFR 30-59 ml/min Claustrophobia Closed fracture of thyroid cartilage COPD, moderate Depression Diabetes mellitus, type 2 insulin pump Fatty liver Gout Hyperlipidemia Hypertension Hypothyroidism Iatrogenic pulmonary embolism Interstitial lung disease Morbid obesity MRSA infection Nephrolithiasis Nocturnal hypoxemia SALAS (obstructive sleep apnea) Osteoarthritis Paroxysmal atrial fibrillation Prolonged QT interval Pulmonary embolism B/L- 5+ years ago Sarcoidosis possible- evaluated by pulmonary; felt no active sarcoidosis and would not merit steroid therapy given weight/diabetic state. 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 "prior EF of 25% while in aflutter, subsequently normal in NSR" Surgical History H/O cardiac radiofrequency ablation H/O prior ablation treatment History of arthroscopic knee surgery History of bronchoscopy History of cataract surgery local anesthesia only per pt History of cholecystectomy History of extraction of renal calculus History of lung surgery thoracoscopy, right VATS, wedge resection History of umbilical hernia repair Hx of carpal tunnel repair Pacemaker Implanted 02/2017 secondary to Sinus node dysfunction/tachy jared syndrome/3rd degree AVB [employer] Pacer check 12/24/17 Status post incision and drainage Family History Mother Cancer Social History Smoking Status: Unknown if ever smoked Second Hand Exposure: No; Hx Alcohol Use: No Hx Substance Use: No Preferred Language: Surinamese Communication Ability: Effective Visual Impairment: No Limitations Hearing Ability: Normal Slurry Plant Operator Required: No Beliefs That Will Affect Care: None marital status: Single Current Living Situation: Alone Current Living Situation Comment: Lives @ home alone at this time current occupational status: retired How many Children do You have: 2 Other Information That Helps Us Care for You: No Feels Safe at Home: Yes Safety Concerns: Feels Safe At This Time Diet Comment: FLUID RESTRICTION during the past year weight has: other Assistive Devices: Walker Assistive Devices Comment: Personal Wheelchair, glasses and shoes at bedside Review of Systems Review of Systems: All systems reviewed & are unremarkable except as noted in HPI & below Physical Exam Physical Exam: General: Awake, alert and oriented x 3. No acute distress. HEENT: Normocephalic, atraumatic. Pupils equal, round and reactive to light and accommodation. Extraocular muscles are intact. Anicteric sclera. Moist mucous membranes. Neck: No JVD. No bruit. Cardiovascular: Regular. Positive S-4. Normal S-1 and S-2. No S-3. 3/6 mid to late systolic ejection murmur, greatest at the right sternal border, second intercostal space with radiation to the bilateral carotids. No rubs. Pulmonary: Clear to auscultation bilaterally. No rales, rhonchi, or wheezing. Abdomen: Bowel sounds x 4, soft. No rebound, guarding or tenderness. No organomegaly. Extremities: No clubbing, cyanosis or edema. +2 pedal pulses bilaterally. Skin: Warm and dry. Results & Data ([facility]) Vital Signs (Past 12 Hours) Vital Signs Temp Pulse Resp BP Pulse Ox 11/04/20 11:13 36.5 C 62 18 124/66 98 11/04/20 07:10 36.5 C 83 18 143/64 H 92 11/04/20 03:56 36.5 C 73 20 115/69 93 (1) Pulmonary embolism Pulmonary embolism type: unspecified Chronicity: chronic Acute cor pulmonale presence: without acute cor pulmonale Qualified Code(s): I27.82 - Chronic pulmonary embolism
[2020-11-04] MEDS ORDERED: MICONAZOLE NITRATE POWDER 43 GM EXT PRN (14:50)
[2020-11-04] MEDS: WARFARIN SOD 5 MG TAB PO SCH (16:58)
[2020-11-04] MEDS ORDERED: HUMULIN R U SC SCH (17:30)
[2020-11-04] MEDS: ACETAMINOPHEN 325 MG TAB PO PRN (18:45)
--- NOTE | 2020-11-04 19:25 | Hospitalist Progress Note ---
Date of Service November 04, 2020 Assessment & Plan (1) Hyperglycemic crisis in diabetes mellitus: present on admission with elevated BS Possible rdue to medication compliance/failed to replace battery from the insulin pump due to functional disability BS on admission above 600 with normal anion gap Most recent Hba1c 12.3 on 11/01/20 Pt was starting on insulin drip and IVF Pharmacy on board for glycemic management Insulin drip was discontinued and transition to NPH for now Continue monitor BS Paroxysmal afib Afib with rate control Continue metoprolol and digoxin Echo showed no change compared to previous study. grossly normal LV chamber size. Normal LV systolic function without regional wall motion abnormality. Ejection fraction 56%. Continue Lovenox bridge with coumadin, INR 1.7 Cardiology on board Not a good candidate for antiarrhythmic therapy No further cardiac testing intervention as per cardiology Okay from cardiology standpoint to discharge Follow up with cardiology in 1 month Hyponatremia Due to Elevated glucose Na on admission 125, now 136 Received IVF Continue monitor BMP Cellulitis Received Keflex in the ER Continue Doxycycline and topical antifungal Continue monitor COPD/ILD Clinically stable CKD stage Creatinine at baseline Disposition Pt will need placement, but he continues to decline it DVT prophylaxis. Lovenox-Coumadin bridge therapy INR goal between 2 and 3 Full code Will try to reach daughter Ms. Bing Andujar, contact #[phone]) to give update on plan of care Admission and Anticipated Discharge Date Admission Date: November 01, 2020 Subjective Pt was seen and examined for follow up hyperglycemia Sitting at the edge of the bed with no distress Pt said that he feels Ok and asking to go home He said that he does not want to go to rehab I told him that his daughter would like him to go to rehab and he said that is not his daughter decision Spoke to daughter and provided with updates and answered all her questions Denies any chest pain, palpitation, dizziness and SOB Review of Systems Review of Systems: All systems reviewed & are unremarkable except as noted in Subjective Physical Exam Physical Exam: General- No acute distress Head- atraumatic Eyes- PERRL, EOMI, ENT- oropharynx clear Neck- supple, no JVD Lungs- clear to auscultation Chest- Gynecomastia, erythematous induration under his breast Heart- irregular rhythm; no murmur Abdomen- normal bowel sounds, soft, nontender Extremities- no calf tenderness Neuro- alert, oriented x 3; PERRL, EOMI; no facial palsy; no dysarthria Skin- warm & dry Results & Data Results & Data ([facility]) Vital Signs (Past 12 Hours) Vital Signs Temp Pulse Resp BP Pulse Ox 11/04/20 14:23 36.4 C L 63 18 159/91 H 98 11/04/20 11:13 36.5 C 62 18 124/66 98
[2020-11-04] MEDS: DIGOXIN 0.125 MG TAB PO SCH (20:38)
[2020-11-04] MEDS: ATORVASTATIN 10 MG TAB PO SCH (20:38)
[2020-11-04] MEDS: traMADol HCL 50 MG TABLET PO PRN (21:43)
[2020-11-04] MEDS: CARBOHYDRATES FOR HYPOGLYCEMIA PO PRN (22:33)
[2020-11-04] MEDS: DEXTROSE 50% 50 ML SYRINGE IV PRN (22:58)
[2020-11-05] MEDS: ACETAMINOPHEN 325 MG TAB PO PRN (04:41)
[2020-11-05] MEDS: LEVOTHYROXINE SODIUM 200 MCG TABLET PO SCH (06:37)
[2020-11-05] MEDS: LEVOTHYROXINE SODIUM 50 MCG TABLET PO SCH (06:37)
[2020-11-05] MEDS: buPROPion XL 150 MG TABCR PO SCH (08:10)
[2020-11-05] MEDS: ASPIRIN 81 MG ECTAB PO SCH (08:10)
[2020-11-05] MEDS: OXYBUTYNIN CHLORIDE XL 5 MG TABCR PO SCH (08:10)
[2020-11-05] MEDS: METOPROLOL SUCC 50MG EXT REL TAB PO SCH (08:11)
[2020-11-05] MEDS: GABAPENTIN 300 MG CAP PO SCH ×2 (08:11→14:21)
[2020-11-05] MEDS: OMEGA-3 (PURIFIED FISH OIL) 1 GM CAP PO SCH (08:11)
[2020-11-05] MEDS: DOXYCYCLINE HYCLATE 100 MG CAP PO SCH (08:11)
[2020-11-05] MEDS: PANTOprazole 40 MG TAB PO SCH (08:12)
[2020-11-05] MEDS: NYSTATIN CR 15 GM TUBE EXT SCH (08:12)
[2020-11-05] MEDS: DULoxetine HCL 60 MG CAP PO SCH (08:12)
[2020-11-05] MEDS: INSULIN ASPART 100 UNITS/ML 3 ML PEN SC SCH ×2 (08:34→12:20)
[2020-11-05 08:40] LABS: Prothrombin Time 19.6 Seconds (9.0-12.0)
[2020-11-05 09:16] LABS: BUN Creatinine Ratio 25.1 (10-20); Calcium 9.8 mg/dl (8.5-10.1); Creatinine Clr Calc Pharmacy 70.3 ml/min; Est GFR (African American) 59.4; Est GFR (Non-African American) 51.3; Potassium 4.3 mmol/L (3.5-5.1)
--- NOTE | 2020-11-05 11:50 | Pharmacy Report ---
Pharmacy Glycemic Short Note 2 - Date of Service November 05, 2020 - Glycemic Short BSG Results (Last 24 hours): 11/04/20 11/04/20 11/04/20 16:24 20:17 22:26 Glucose POC Glucose 203 H 99 51 L* 11/04/20 11/04/20 11/04/20 22:51 22:56 23:18 Glucose POC Glucose 45 L* 59 L* 98 11/05/20 11/05/20 11/05/20 04:44 07:20 08:05 Glucose 145 H POC Glucose 100 H 109 H 11/05/20 11:25 Glucose POC Glucose 245 H OUTPATIENT ANTIDIABETIC REGIMEN: * U-500 insulin pump * ~148 units basal/day, 125 units with breakfast, 90 units with lunch, 70 units with dinner + CF of 25 * HbA1c = 11.9% (11/01/20) ASSESSMENT: 11/05: * Patient received a total of 210 units of insulin yesterday * 150 units of U-500 + 60 units of bolus * BSGs were erratic: [phone] mg/dL * Did have another episode of symptomatic hypoglycemia at bedtime last night. * Treated with a half amp of D50 and 30 g of CHO * BSG improved to 98 mg/dL * Overnight, she was checked and was 100 mg/dL * Fasting BSG was 109 mg/dL this AM, much improved. Lunch BSG was elevated at 245 mg/dL * Will utilize BID U-500 at this point to minimize hypoglycemia. Will also change goal range to minimize hypoglycemia. 11/04: * Mr. Andujar received a total of 248 units of insulin yesterday * 150 units basal + 98 units bolus * BSGs were: [phone] mg/dL * Patient has two episodes of symptomatic hypoglycemia yesterday which was difficult to resolve. At dinner time, he required 30 g of CHO to improve his BSGs and resolve symptoms. At bedtime, he required 60 g of CHO to improve his BSGs and resolve symptoms. * Believe these episodes are related to not removing his carb ratio when U- 500 was started and then the large Novolog doses stacking and causing lows. Also, there may have been a role played by too much U-500 being given too close together. * Expectedly, BSGs trended upwards this AM as patient received uncovered carbs to resolve hypoglycemia * BSGs were: [phone] mg/dL * Will separate U-500 into BID instead of TID today to help prevent hypoglycemia. Carb ratio was removed yesterday afternoon so do not expect patient to be hypoglycemic today. 11/03: * Patient was transitioned off the insulin drip yesterday with the use of NPH. He received 90 units of NPH in the morning and then 10 units of NPH at HS. * BSGs trended down nicely: [phone] mg/dL * Fasting was 281 mg/dL this AM * This is likely due to not receiving enough NPH last evening * Will transition patient to TID U-500 insulin today which aligns with previous admission data * Will stop carb coverage now that patient is on U-500 11/02: * Patient admitted with hyperglycemia secondary to insulin pump malfunction. [facility] DM management. Started on insulin drip on admission due to hyperglycemia. * Plan to transition off insulin drip this AM with SQ NPH - gave 90 units NPH this AM. Insulin drip on hold at lunch time. BSGs remain stable on recheck af ter insulin drip held. * Plan to start correctional insulin at dinner time. Will have scale for NPH dosing at that time. PLAN FOR INPATIENT GLYCEMIC CONTROL: * Basal insulin - changed to BID * Humulin R U-500: 80 units w/ breakfast, 30 units w/ dinner * Bolus insulin - loosened goal range * NovoLog per scale ACHS or Q6hrs while NPO * Goal Range: Low 120 mg/dL - High 160 mg/dL * Correction Factor: 8 mg/dL/unit * NO carb coverage PLAN FOR DISCHARGE: * Likely could continue with insulin pump on discharge as long as patient feels comfortable with pump and is working correctly. Patient met with DM educator and reviewed pump together * Would recommend close follow up with MTM clinic
[2020-11-05] MEDS: CEROVITE ADV FORMULA TAB PO SCH (12:21)
--- NOTE | 2020-11-05 13:00 | Hospitalist Progress Note ---
Date of Service November 05, 2020 Assessment & Plan (1) Hyperglycemic crisis in diabetes mellitus: present on admission with elevated BS Mostly related to HHS Possible due to medication compliance/failed to replace battery from the insulin pump due to functional disability BS on admission above 600 with normal anion gap (No DKA) Most recent Hba1c 12.3 on 11/01/20 Pt was starting on insulin drip and IVF Pharmacy on board for glycemic management Insulin drip was discontinued and was transition to NPH for now Spoke to pharmacy and family life educator that will teach patient on how to use his insulin pump Pharmacy said that he can resume his insulin pump now if planning to discharge anytime soon Continue monitor BS Paroxysmal afib Afib with rate control Continue metoprolol and digoxin Echo showed no change compared to previous study. grossly normal LV chamber size. Normal LV systolic function without regional wall motion abnormality. Ejection fraction 56%. Lovenox discontinued since his INR 2 Continue coumadin daily Cardiology on board Not a good candidate for antiarrhythmic therapy No further cardiac testing intervention as per cardiology Okay from cardiology standpoint to discharge Follow up with the coumadin clinic to monitor PT/INR Follow up with cardiology in 1 month Hyponatremia Due to Elevated glucose Na on admission 125, now 138 Received IVF Check BMP in 1 week Cellulitis Received Keflex in the ER Continue Doxycycline and topical antifungal Continue monitor Morbid Obesity BMI 45.6 Counseling on weight loss Chronic diastolic heart failure Will resume oral diuresis Continue monitor for fluid overload since pt receives fluid during the hospital course and diuresis were held Lasix given today before discharge COPD/ILD Clinically stable CKD 3 stage Creatinine 1.4 today Creatinine at baseline Disposition Pt will need placement, but he continues to decline it DVT prophylaxis. Lovenox-Coumadin bridge therapy INR goal between 2 and 3 Lovenox discontinued. Continue coumadin, INR 2 Full code Disposition Discharge home today daughter Ms. Bing Andujar, contact #[phone]) to give update on plan of care Admission and Anticipated Discharge Date Admission Date: November 01, 2020 Subjective Pt was seen and examined for follow up hyperglycemia Sitting at the edge of the bed with no distress Pt said that he feels Ok and wants to go home today He said that he does not want to go to any facility Spoke to daughter yesterday and provided with updates and answered all her questions Denies any chest pain, palpitation, dizziness and SOB Review of Systems Review of Systems: All systems reviewed & are unremarkable except as noted in Subjective Physical Exam Physical Exam: General- No acute distress Head- atraumatic Eyes- PERRL, EOMI, ENT- oropharynx clear Neck- supple, no JVD Lungs- clear to auscultation Chest- Gynecomastia, erythematous induration under his breast Heart- irregular rhythm; no murmur Abdomen- normal bowel sounds, soft, nontender Extremities- no calf tenderness Neuro- alert, oriented x 3; PERRL, EOMI; no facial palsy; no dysarthria Skin- warm & dry Results & Data Results & Data ([facility]) Vital Signs (Past 12 Hours) Vital Signs Temp Pulse Pulse Resp BP Pulse Ox 11/05/20 11:39 36.3 C L 61 16 126/63 98 11/05/20 07:48 36.5 C 114 H 16 110/69 95 11/05/20 04:00 36.6 C 77 20 154/87 H 94 11/05/20 02:53 76
[2020-11-05] MEDS ORDERED: FUROSEMIDE 80 MG TAB PO ONE (13:26)
--- NOTE | 2020-11-05 13:49 | Cardiology Progress Note ---
Date of Service November 05, 2020 Assessment & Plan (1) Hyperglycemic crisis in diabetes mellitus: (2) Subtherapeutic international normalized ratio (INR): (3) Acute on chronic renal failure: (4) Cardiac pacemaker in situ: (5) Chronic diastolic CHF (congestive heart failure): (6) Paroxysmal atrial fibrillation: (7) SALAS (obstructive sleep apnea): (8) Tachy-sherry syndrome: (9) Pulmonary embolism: (10) Interstitial lung disease: (11) Morbid obesity: From a cardiac standpoint the patient is doing well. Recurrence of atrial fibrillation is understandable given the clinical. Warfarin has been restarted and INR today of 2, obviously, goal of 2-3. We will continue warfarin along with current doses of digoxin and metoprolol. Not a good candidate for antiarrhythmic therapy at this time. No further cardiac testing intervention necessary at this time. Okay to discharge to home from a cardiac standpoint. Recommend cardiac follow-up in 1 month. Admission and Anticipated Discharge Date Admission Date: November 01, 2020 Subjective Patient seen and examined, chart reviewed. States he is feeling well today and back to baseline. Anxious for discharge to home. Telemetry reviewed: Atrial paced rhythm. Review of Systems Review of Systems: All systems reviewed & are unremarkable except as noted in HPI & below Physical Exam Physical Exam: General: Awake, alert and oriented x 3. No acute distress. HEENT: Normocephalic, atraumatic. Pupils equal, round and reactive to light and accommodation. Extraocular muscles are intact. Anicteric sclera. Moist mucous membranes. Neck: No JVD. No bruit. Cardiovascular: Regular. Positive S-4. Normal S-1 and S-2. No S-3. 3/6 mid to late systolic ejection murmur, greatest at the right sternal border, second intercostal space with radiation to the bilateral carotids. No rubs. Pulmonary: Clear to auscultation bilaterally. No rales, rhonchi, or wheezing. Abdomen: Bowel sounds x 4, soft. No rebound, guarding or tenderness. No organomegaly. Extremities: No clubbing, cyanosis or edema. +2 pedal pulses bilaterally. Skin: Warm and dry. Results & Data ([facility]) Vital Signs (Past 12 Hours) Vital Signs Temp Pulse Pulse Resp BP Pulse Ox 11/05/20 11:39 36.3 C L 61 16 126/63 98 11/05/20 07:48 36.5 C 114 H 16 110/69 95 11/05/20 04:00 36.6 C 77 20 154/87 H 94 11/05/20 02:53 76 (1) Pulmonary embolism Pulmonary embolism type: unspecified Chronicity: chronic Acute cor pulmonale presence: without acute cor pulmonale Qualified Code(s): I27.82 - Chronic pulmonary embolism
--- NOTE | 2020-11-05 14:15 | Electrocardiogram Report ---
Test Reason : Blood Pressure : / mmHG Vent. Rate : 068 BPM Atrial Rate : 068 BPM P-R Int : 234 ms QRS Dur : 162 ms QT Int : 466 ms P-R-T Axes : 005 -62 036 degrees QTc Int : 495 ms Atrial-paced rhythm with prolonged AV conduction Right bundle branch block Left anterior fascicular block Bifascicular block Abnormal ECG When compared with ECG of 02-NOV-2020 16:00, Electronic atrial pacemaker has replaced Atrial fibrillation Vent. rate has decreased BY 33 BPM Confirmed by Jim Davenport ([id number]) on 11/05/2020 2:14:56 PM Referred By: Scotty Jara Confirmed By:Jim Davenport
[2020-11-05] MEDS ORDERED: HUMULIN R U SC SCH (17:30)
--- NOTE | 2020-11-14 10:18 | Discharge Summary ---
Date of Service November 05, 2020 Admission HPI Per Admitting Provider History obtained from patient and records. Patient is a fair historian. Medical history is significant for chronic diastolic heart failure (EF 55 to 60%, TTE 2019), SSS sp PPM/PE on anticoagulation, COPD/ILD as per records, SALAS on CPAP, DM2 on insulin pump, hypothyroidism, CRI (baseline creatinine 1.5 to 2.2), chronic anemia (baseline hemoglobin 13), history of MRSA as per records. Last confinement July 2020 for encephalopathy secondary to hyperglycemic crisis. Rehab recommended by Occupational Therapy during last confinement but patient went home. Patient seen at the ER a few days later for hyperglycemia. Patient was not wearing insulin pump at time of [facility] at home visit last week as per documentation. Patient seen today at [facility] clinic for his diabetes. Blood sugars uncontrolled (greater than 400 most of the last 4 days) as per pharmacist note. Patient insulin pump has been off since 6 PM last night due to battery. Patient not adherent to regimen, not sure if patient able to see the screen to tell that pump was not functional as per pharmacist note. Patient claims he replaced insulin pump battery prior to going to the doctor's office however. BSG at office was noted to be 600s. Patient denies chest pain, S OB, cough, headache, abdominal pain, diarrhea, dysuria symptoms. Admits to being thirsty and hungry. Patient seen at PCP's office after pharmacist visit. MMSE improved at 26/30 compared to 23/30 3 months ago. Outpatient Neurology consultation contemplated for memory issues. Serum glucose on outpatient blood work done today noted to be greater than 750. Patient sent to the ER for evaluation. IV insulin started at the ER. Keflex given for cellulitis under left breast. Weight-based Lovenox subcutaneous administered at the ER for subtherapeutic INR. MEDICAL HISTORY: As above. SURGERIES: Knee surgery, hernia repair, urologic procedures, cataract surgery, entropion surgery, Carpal tunnel surgery, cholecystectomy, lung surgery FAMILY HISTORY: Heart disease. PERSONAL AND SOCIAL HISTORY: Nonsmoker. No chronic intake of alcoholic beverages. 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 Admission Exam Per Admitting Provider General- No acute distress Head- atraumatic Eyes- PERRL, EOMI, ENT- oropharynx clear Neck- supple, no JVD Lungs- clear to auscultation Chest- Gynecomastia, erythematous induration under his breast Heart- irregular rhythm; no murmur Abdomen- normal bowel sounds, soft, nontender Extremities- no calf tenderness Neuro- alert, oriented x 3; PERRL, EOMI; no facial palsy; no dysarthria Skin- warm & dry Principal Diagnosis Hyperglycemic crisis in diabetes mellitus: Paroxysmal atrial fibrillation Hyponatremia Cellulitis Morbid Obesity COPD Chronic Kidney Disease stage 3 stage Discharge Exam GENERAL: Comfortable, morbidly obese, pleasant, no respiratory distress SKIN: Pallor, warm HEENT: Alopecia, pale palpebral conjunctivae, no ptosis, dry buccal mucosa NECK : Supple, short neck, no tenderness CHEST : Gynecomastia; erythematous induration, left inframammary area fold with minimal tenderness; lungs CTA HEART : RRR, no obvious murmurs ABDOMEN: Some distention, nontender EXTREMITIES : Minimal LE swelling, no LE tenderness, no other conspicuous deformities noted NEUROLOGIC : Coherent, no facial asymmetry, no other gross focality Discharge Data Allergies Allergy/AdvReac Type Severity Reaction Status Date / Time No Known Allergies Allergy Verified 11/01/20 18:25 Consultations 11/04/20 08:08 Consult Cardiology Routine Ordered Studies SINGLE VIEW CHEST CLINICAL HISTORY: Hyperglycemia. FINDINGS: An AP, portable, upright chest radiograph is compared to study dated 07/16/2020. Correlation is made with chest CT dated 11/10/2018. A 2-lead cardiac pacemaker is unchanged in position. The heart is enlarged noting atherosclerotic calcification of the thoracic aorta. The pulmonary vasculature is noncongested. Chronic interstitial thickening is similar to previous. There is bibasilar scarring/atelectasis. No airspace consolidation or large pleural effusion is identified. Postoperative change is noted in the right midlung. No pneumothorax is seen. The skeletal structures are osteopenic. Healed right-sided rib fractures are again noted. IMPRESSION: 1. Cardiomegaly and cardiac pacemaker. There is no radiographic evidence of congestive failure. 2. No airspace consolidation or large pleural effusion is identified. ACT 112: Negative or not required by law. Electronically signed by: Anupam Gonzalez M.D. 11/01/2020 6:03 PM Dictated: 11/01/201800Transcribed: 11/01/201800 Diabetes Follow up Diabetes Follow-up Needed for HgbA1c >9% Hospital Course (1) Hyperglycemic crisis in diabetes mellitus: present on admission with elevated BS Mostly related to HHS Possible due to medication compliance/failed to replace battery from the insulin pump due to functional disability BS on admission above 600 with normal anion gap (No DKA) Most recent Hba1c 12.3 on 11/01/20 Pt was starting on insulin drip and IVF Pharmacy on board for glycemic management Insulin drip was discontinued and was transition to NPH for now Spoke to pharmacy and ict educator that will teach patient on how to use his insulin pump Pharmacy said that he can resume his insulin pump now if planning to discharge anytime soon Continue monitor BS Paroxysmal afib Afib with rate control Continue metoprolol and digoxin Echo showed no change compared to previous study. grossly normal LV chamber size. Normal LV systolic function without regional wall motion abnormality. Ejection fraction 56%. Lovenox discontinued since his INR 2 Continue coumadin daily Cardiology on board Not a good candidate for antiarrhythmic therapy No further cardiac testing intervention as per cardiology Okay from cardiology standpoint to discharge Follow up with the coumadin clinic to monitor PT/INR Follow up with cardiology in 1 month Hyponatremia Due to Elevated glucose Na on admission 125, now 138 Received IVF Check BMP in 1 week Cellulitis Received Keflex in the ER Continue Doxycycline and topical antifungal Continue monitor Morbid Obesity BMI 45.6 Counseling on weight loss Chronic diastolic heart failure Will resume oral diuresis Continue monitor for fluid overload since pt receives fluid during the hospital course and diuresis were held Lasix given today before discharge COPD/ILD Clinically stable CKD 3 stage Creatinine 1.4 today Creatinine at baseline Disposition Pt will need placement, but he continues to decline it DVT prophylaxis. Lovenox-Coumadin bridge therapy INR goal between 2 and 3 Lovenox discontinued. Continue coumadin, INR 2 Full code Disposition Discharge home today daughter Ms. Bing Andujar, contact #[phone]) to give update on plan of care Total Time Total Time Spent Total Time Spent (In Minutes): 35 minutes Total Time Includes: Examination of the Patient, Discharge Planning, Medication Reconciliation, Communication With Other Providers and Other Discharge Plan Discharge Items Patient Disposition: Home - Home Health Services Reason For Visit: HYPERGLYCEMIC CRISIS Discharge Diagnosis: Hyperglycemic crisis in diabetes mellitus: Paroxysmal atrial fibrillation Hyponatremia Cellulitis Morbid Obesity COPD Chronic Kidney Disease stage 3 stage Activity: Resume your previous activity Non-emergency contact: Primary Care Provider and Tactical Debriefer Officer Call non-emergency contact if: you have any medication questions Follow-up/Referrals: Scotty Jara DO [Primary Care Provider] - (Date & Time 11/08/2020 3:00 PM Provider Scotty Jara DO Department General Internal Medicine [facility] Date & Time 11/06/2020 3:00 PM Provider Barbara Perdomo RN Department ising at [facility] Date & Time 11/08/2020 10:30 AM Provider RAO Cornejo Department [facility] ) Diet: Carb Consistent or DM2 Addtl Attending Provider Instructions: Follow up with your primary care provider Dr. Jara on 11/08/2020 at 3:00 PM at the General Internal Medicine [facility] Follow up with your cardiology in 1 month (Please call to schedule for the appointment) Follow up with the coumadin clinic to monitor your PT/INR Follow up with the MTM clinic to monitor your diabetes Continue monitor your blood sugar and bring your blood sugar log at your next appointment with your provider or the MTM clinic Follow up a healthy diabetes diet and limited concentrated sweet intake Seek help if your insulin pump does not work properly Monitor for any shortness of breath and seek medical help if develops any s hortness of breath Check BMP in 1 week to monitor your electrolytes and renal function Fall precaution Pending Studies at Discharge: No Stand-Alone Forms: [facility], Sm[facility] Cess[facility] Medications and DC Order Prescriptions: New nystatin 100,000 unit/gram Cream 1 applic EXT BID Qty: 15 RF: 0 Continued aspirin [Adult Low Dose Aspirin] 81 mg tablet,delayed release (DR/EC) 81 mg PO QAM RF: 0 duloxetine 60 mg capsule,delayed release(DR/EC) 60 mg PO QAM RF: 0 cholecalciferol (vitamin D3) 2,000 unit capsule 2,000 units PO QAM RF: 0 oxybutynin chloride [Ditropan XL] 10 mg tablet extended release 24hr 10 mg PO DAILY RF: 0 digoxin 125 mcg Tablet 0.125 mg PO QPM Qty: 0 RF: 0 levothyroxine 200 mcg tablet 200 mcg PO QAM Qty: 0 RF: 0 colchicine 0.6 mg capsule 0.6 mg PO Q OTHER DAY Qty: 0 RF: 0 allopurinol 300 mg tablet 300 mg PO QAM RF: 0 omeprazole 20 mg capsule,delayed release(DR/EC) 20 mg PO QAM RF: 0 atorvastatin 20 mg tablet 10 mg PO HS RF: 0 gabapentin 300 mg capsule 300 mg PO TID RF: 0 acetaminophen 500 mg capsule 1,000 mg PO Q6H PRN (Reason: Pain) RF: 0 meclizine 12.5 mg tablet 12.5 mg PO TID PRN (Reason: headaches) RF: 0 albuterol sulfate 90 mcg/actuation HFA aerosol inhaler 2 puffs INH QID PRN (Reason: Shortness Of Breath Or Wheezing) RF: 0 levothyroxine 50 mcg tablet 50 mcg PO QAM RF: 0 tramadol 50 mg Tablet 50 mg PO BID PRN (Reason: Pain, Severe) RF: 0 metoprolol succinate 100 mg tablet extended release 24 hr 150 mg PO BID RF: 0 warfarin 4 mg tablet 2 mg PO WK RF: 0 [facility] 250-2.5-0.5 mg Capsule 1 cap PO BID RF: 0 insulin regular hum U-500 conc 500 unit/mL Solution 0 unit continuous subcutaneous infusion CONTINOUS RF: 0 warfarin 4 mg tablet 4 mg PO [id number] RF: 0 bupropion HCl 150 mg tablet extended release 24 hr 150 mg PO QAM RF: 0 potassium chloride [Klor-Con M20] 20 mEq tablet,ER particles/crystals 20 meq PO DAILY RF: 0 nitroglycerin 0.4 mg tablet, sublingual 0.4 mg sublingual UD PRN (Reason: Chest Pain) RF: 0 diclofenac sodium 1 % Gel 4 g TOPICAL BID PRN (Reason: Pain) RF: 0 multivitamin with minerals [Multiple Vitamin-Minerals] Tablet 1 tab PO DAILY RF: 0 sennosides-docusate sodium [Senna with Docusate Sodium] 8.6-50 mg Tablet 1 tab-cap PO BID PRN (Reason: Constipation) RF: 0 metolazone 2.5 mg Tablet 2.5 mg PO DAILY PRN (Reason: WT GAIN 3#/24 HRS OR 5#/48 HRS.) RF: 0 triamcinolone acetonide 0.1 % Cream 1 applic TOPICAL BID PRN (Reason: Skin Irritation) RF: 0 magnesium oxide 400 mg magnesium Tablet 400 mg PO DAILY RF: 0 spironolactone [Aldactone] 25 mg tablet 25 mg PO DAILY RF: 0 furosemide 80 mg tablet 80 mg PO BID RF: 0 Discharge Orders: Discharge Order (Routine); Ordered 11/05/20 Ordered By: Ximena Chino Admission Data Admit Date/Time: 11/01/20 23:53 Attending Provider: Ximena Chino Admit Provider: Rick Ochoa Primary Care Provider: Scotty Jara Other Providers: [facility] ; Juan Carbone ; [place] Other Interventions: Discharge Summary Assessment (RN) Last Done: 11/05/20 15:05
== END 2020-11-05 15:46 | disposition home health service (06) | DRG 919 ==
LOC: ED 16:45 → 2W 11-02

== ENCOUNTER 2021-03-04 14:19 | Inpatient (IN) ==
--- NOTE | 2021-03-04 14:23 | Emergency Department Note ---
Impression & Plan Hypoglycemia ED Provider Note NAME: CECILE KENDALL AGE: 70 SEX: M : 1950 ARRIVES VIA: Ambulance INFORMANT: patient, ED PROVIDER(S): Wilfredo Duque MD Chief Complaint: Low blood sugar HPI: Patient does present with concern for low blood sugar. The patient states he does not feel quite right at home and checked it was 29. EMS arrived gave the patient 2 oral glucose tabs and subsequently D10. The patient did have an improvement in his blood sugar. The patient denies any chest pains shortness of breath nausea vomiting. The patient has had some mild diarrhea but without any blood. The patient denies any changes in medications and states that has been compliant. Patient states that he last ate lunchtime yesterday at 2 PM. The patient did not eat dinner breakfast or lunch today. Patient is vaccinated for Covid. The patient does feel improved compared to prior. Patient does have an insulin pump. ROS: See HPI for pertinent positives and negatives. A total of 10 systems were reviewed and otherwise negative. Past medical history: See below Surgical history: See below Social history: See below Physical Exam: GENERAL: Well appearing, well nourished, NAD, non-toxic. EYE EXAM: Normal conjunctiva. PERRL, no anisocoria and EOM's grossly intact w/o pain. OROPHARYNX: Moist mucus membranes. Edentulous. NECK: Supple, no nuchal rigidity, no adenopathy, non-tender. No signs of mening ismus. LUNGS: Clear to auscultation. Normal chest wall mechanics. HEART: Normal cardiac irregularly irregular, no MRG. ABDOMEN: Abdomen soft, non-tender, normo-active bowel sounds, no masses, no rebo und or guarding. BACK: No CVA TTP. SKIN: No rashes and no bruising. UPPER EXTREMITIES: Upper extremities are grossly normal. LOWER EXTREMITIES: Chronic recent venous stasis changes, sensate, compartments are soft, trace pretibial symmetric bilateral lower extremity edema without pain. NEURO EXAM: A&O x3, cranial nerves II-XII grossly intact, normal speech, moves all 4 extremities on command w/o issue. Differential diagnoses: Infection, dehydration, metabolic abnormality, hypo/hyperglycemia, electrolyte disturbance, anemia, hypoxia, cardiac sources, intracerebral event, toxicologic, neurologic, as well as other pathologies. Course: Patient was seen and evaluated the bedside. Full history physical exam was performed. EKG interpreted by me Sara. jesus, rate of 89, wide QRS, right bundle branch block pattern. Q waves present throughout. Imaging Studies: See Below Cardiac monitoring: An order was placed for continuous cardiac monitoring. The monitor shows a rate of 75 with regular irregular rhythm. MDM: Patient did present with concern for hypoglycemia which is initially 29. The p atient did have blood work completed and was ordered food. The patient still has slightly low blood sugars. The patient was ordered a full diet after taking turkey sandwich and was still hypoglycemic. The patient also did have his basal insulin decreased. After all of this the patient still had borderline low blood sugars in the 60s. Given this with the patient's medical comorbidities believe the patient would benefit from inpatient treatment at this time. I did speak with RAO Jurado and the patient was admitted to the medicine service by Dr. Lanier. Critical Care: I have personally spent 35 minutes of critical care time in direct management of this patient. This includes bedside care, interpretation of diagnostic studies, and testing, discussion with consultants, patient, and family members, and other require inpatient management activities. This 35 minutes is in excess of all separately billable procedures. Past Med/Surg History Medical History Abnormal chest x-ray 06/18/20 right hilar opacity, f/u recommended Anticoagulant long-term use Arthritis Atrial fibrillation paroxysmal Atrial flutter Bifascicular block CAD (coronary artery disease) Cardiac pacemaker in situ Cardiomyopathy Chronic anticoagulation Chronic diastolic CHF (congestive heart failure) Chronic venous insufficiency CKD (chronic kidney disease) stage 3, GFR 30-59 ml/min Claustrophobia Closed fracture of thyroid cartilage COPD, moderate Depression Diabetes mellitus, type 2 insulin pump Fatty liver Gout Hyperlipidemia Hypertension Hypothyroidism Iatrogenic pulmonary embolism Interstitial lung disease Morbid obesity MRSA infection Nephrolithiasis Nocturnal hypoxemia SALAS (obstructive sleep apnea) Osteoarthritis Paroxysmal atrial fibrillation Prolonged QT interval Pulmonary embolism B/L- 5+ years ago Sarcoidosis possible- evaluated by pulmonary; felt no active sarcoidosis and would not merit steroid therapy given weight/diabetic state. 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 "prior EF of 25% while in aflutter, subsequently normal in NSR" Surgical History H/O cardiac radiofrequency ablation H/O prior ablation treatment History of arthroscopic knee surgery History of bronchoscopy History of cataract surgery local anesthesia only per pt History of cholecystectomy History of extraction of renal calculus History of lung surgery thoracoscopy, right VATS, wedge resection History of umbilical hernia repair Hx of carpal tunnel repair Pacemaker Implanted 02/2017 secondary to Sinus node dysfunction/tachy sherry syndrome/3rd degree AVB [employer] Pacer check 12/24/17 Status post incision and drainage Family History Mother Cancer Social History Smoking Status: Never smoker Second Hand Exposure: No; Hx Alcohol Use: No Hx Substance Use: No Preferred Language: Yoruba Communication Ability: Effective Visual Impairment: No Limitations Hearing Ability: Normal Fermenter 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 Required: No Beliefs That Will Affect Care: None marital status: Single Current Living Situation: Alone current occupational status: retired How many Children do You have: 2 Feels Safe at Home: Yes Diet Comment: FLUID RESTRICTION during the past year weight has: other Assistive Devices: Denture - Upper, Denture - Lower and Walker Allergies Allergies Allergy/AdvReac Type Severity Reaction Status Date / Time No Known Allergies Allergy Verified 03/04/21 19:07 Home Meds Home Medications Medication Instructions Recorded Confirmed digoxin 125 mcg (0.125 mg) tablet 0.125 mg PO QPM #0 07/13/16 03/04/21 aspirin 81 mg tablet,delayed 81 mg PO QAM 05/11/18 03/04/21 release (Adult Low Dose Aspirin) levothyroxine 50 mcg tablet 50 mcg PO QAM 06/24/18 03/04/21 duloxetine 60 mg capsule,delayed 60 mg PO QAM 08/31/18 03/04/21 release cholecalciferol (vitamin D3) 50 2,000 units PO QAM 05/13/19 03/04/21 mcg (2,000 unit) capsule allopurinol 300 mg tablet 300 mg PO QAM 05/25/19 03/04/21 levothyroxine 200 mcg tablet 200 mcg PO QAM #0 tab 05/25/19 03/04/21 omeprazole 20 mg capsule,delayed 20 mg PO QAM 05/25/19 03/04/21 release tramadol 50 mg tablet 50 mg PO BID PRN 05/30/19 03/04/21 potassium chloride 20 mEq 20 meq PO DAILY 07/12/19 03/04/21 tablet,extended release(part/cryst) (Klor-Con M) albuterol sulfate 90 mcg/actuation 2 puffs INH QID PRN gm 12/14/19 03/04/21 aerosol inhaler atorvastatin 20 mg tablet 10 mg PO HS 12/14/19 03/04/21 gabapentin 300 mg capsule 300 mg PO TID 12/14/19 03/04/21 meclizine 12.5 mg tablet 12.5 mg PO TID PRN 12/14/19 03/04/21 bupropion HCl 150 mg 24 hr tablet, 150 mg PO QAM 02/13/20 03/04/21 extended release insulin regular hum U-500 conc 500 0 unit CONTINUOUS SUBCUTANEOUS 02/13/20 03/04/21 unit/mL subcutaneous soln INFUSION CONTINOUS metoprolol succinate 100 mg 150 mg PO BID 02/13/20 03/04/21 tablet,extended release 24 hr omega-3 250 lu-aan-tof-lutein 2.5 1 cap PO BID 02/13/20 03/04/21 mg-zeaxanthin 0.5 mg capsule ([facility]) warfarin 4 mg tablet 4 mg PO SUTH 02/13/20 03/04/21 colchicine 0.6 mg capsule 0.6 mg PO Q OTHER DAY #0 cap 03/02/20 03/04/21 oxybutynin chloride 10 mg 10 mg PO DAILY 03/29/20 03/04/21 tablet,extended release 24 hr (Ditropan XL) multivitamin with minerals 1 tab PO DAILY 06/19/20 03/04/21 (Multiple Vitamin-Minerals) nitroglycerin 0.4 mg sublingual 0.4 mg SUBLINGUAL UD PRN 06/19/20 03/04/21 tablet sennosides 8.6 mg-docusate sodium 1 tab-cap PO BID PRN 07/16/20 03/04/21 50 mg tablet (Senna with Docusate Sodium) furosemide 80 mg tablet 80 mg PO BID 11/01/20 03/04/21 magnesium oxide 400 mg PO DAILY 11/01/20 03/04/21 metolazone 2.5 mg tablet 2.5 mg PO DAILY PRN 11/01/20 03/04/21 spironolactone 25 mg tablet 25 mg PO DAILY 11/01/20 03/04/21 (Aldactone) dulaglutide 1.5 mg/0.5 mL 1.5 mg SUBCUT WK 03/04/21 03/04/21 subcutaneous pen injector (Trulicity) nystatin 100,000 unit/gram topical 1 applic TOPICAL BID 03/04/21 03/04/21 powder warfarin 4 mg tablet 8 mg PO [id number] 03/04/21 03/04/21 Results & Data (ED) Vital Signs Vital Signs - 24 hr 03/04/21 14:15 03/04/21 14:31 03/04/21 15:03 Temperature 36.8 C Temperature Source Oral Pulse Rate 75 94 H 99 H Pulse Rate [Apical] Respiratory Rate 20 22 22 Respiratory Effort / Characteristics Non-Labored Spontaneous Respiratory Depth Normal Respiratory Pattern Regular Blood Pressure 92/53 L 92/53 L Blood Pressure [Right Arm] Blood Pressure Mean 66 66 Blood Pressure Mean [Right Arm] Pulse Oximetry 96 Oxygen Delivery Method Room Air Sepsis Recent Fever Within 48 Hours No Sepsis New/Unexplained Change in Mental Status No Sepsis Action Taken by Nursing No Action Required 03/04/21 15:13 03/04/21 15:31 03/04/21 16:00 Temperature Temperature Source Pulse Rate 88 95 H Pulse Rate [Apical] 83 Respiratory Rate 20 17 20 Respiratory Effort / Characteristics Non-Labored Spontaneous Respiratory Depth Normal Respiratory Pattern Regular Blood Pressure 60/48 L 97/64 L Blood Pressure [Right Arm] 84/55 L Blood Pressure Mean 52 75 Blood Pressure Mean [Right Arm] 64 Pulse Oximetry 95 96 Oxygen Delivery Method Room Air Sepsis Recent Fever Within 48 Hours Sepsis New/Unexplained Change in Mental Status Sepsis Action Taken by Nursing 03/04/21 16:30 03/04/21 17:01 03/04/21 17:32 Temperature Temperature Source Pulse Rate 93 H 85 93 H Pulse Rate [Apical] Respiratory Rate 22 14 20 Respiratory Effort / Characteristics Respiratory Depth Respiratory Pattern Blood Pressure 96/58 L 105/53 L Blood Pressure [Right Arm] Blood Pressure Mean 70 70 Blood Pressure Mean [Right Arm] Pulse Oximetry 94 93 Oxygen Delivery Method Sepsis Recent Fever Within 48 Hours Sepsis New/Unexplained Change in Mental Status Sepsis Action Taken by Nursing 03/04/21 18:00 Temperature Temperature Source Pulse Rate 94 H Pulse Rate [Apical] Respiratory Rate 20 Respiratory Effort / Characteristics Respiratory Depth Respiratory Pattern Blood Pressure Blood Pressure [Right Arm] Blood Pressure Mean Blood Pressure Mean [Right Arm] Pulse Oximetry 93 Oxygen Delivery Method Sepsis Recent Fever Within 48 Hours Sepsis New/Unexplained Change in Mental Status Sepsis Action Taken by Residential Medications Current Medication List: was personally reviewed by me Laboratory Data Attestation: I reviewed the patient's lab results. Result diagrams: 03/04/21 14:30 03/04/21 14:30 Lab Results 03/04/21 03/04/21 03/04/21 Range/Units 14:25 14:30 14:30 WBC 5.95 (4.8-10.8) K/uL RBC 4.29 L (4.7-6.1) M/uL Hgb 12.7 L (14.0-18.0) g/dL Hct 39.2 L (42-52) % MCV 91.4 (80-100) fL MCH 29.6 (25-34) pg MCHC 32.4 (32-36) g/dL RDW Std Deviation 50.3 H (36.4-46.3) fL RDW Coeff of Baldo 14.9 H (11.5-14.5) % Plt Count 177 (130-400) K/uL MPV 10.7 H (7.4-10.4) fL Immature Gran % (Auto) 0.5 % Neut % (Auto) 74.6 % Lymph % (Auto) 14.3 % [place] % (Auto) 9.2 % Eos % (Auto) 1.2 % Baso % (Auto) 0.2 % Neut # (Auto) 4.44 (1.4-6.5) K/uL Lymph # (Auto) 0.85 L (1.2-3.4) K/uL [place] # (Auto) 0.55 (0.11-0.59) K/uL Eos # (Auto) 0.07 (0-0.5) K/uL Baso # (Auto) 0.01 (0-0.2) K/uL Immature Gran # (Auto) 0.03 H (0.00-0.02) K/uL PT 10.7 (9.0-12.0) Seconds INR 1.1 (0.9-1.1) Sodium (136-145) mmol/L Potassium (3.5-5.1) mmol/L Chloride (98-107) mmol/L Carbon Dioxide (21-32) mmol/L Anion Gap (3-11) BUN (7-18) mg/dl Creatinine (0.6-1.4) mg/dl Est Cr Clr Drug Dosing ml/min Est GFR ( Amer) ml/min Est GFR (Non-Af Amer) ml/min BUN/Creatinine Ratio (10-20) Glucose (70-99) mg/dl POC Glucose 99 (70-99) mg/dl Calcium (8.5-10.1) mg/dl Total Bilirubin (0.2-1) mg/dl AST (15-37) U/L ALT (12-78) U/L Alkaline Phosphatase (45-117) U/L Troponin I (0-0.045) ng/ml Total Protein (6.4-8.2) gm/dl Albumin (3.4-5.0) gm/dl Globulin (2.5-4.0) gm/dl Albumin/Globulin Ratio (0.9-2) TSH (0.300-4.500) uIu/ml 03/04/21 03/04/21 03/04/21 Range/Units 14:30 15:53 16:30 WBC (4.8-10.8) K/uL RBC (4.7-6.1) M/uL Hgb (14.0-18.0) g/dL Hct (42-52) % MCV (80-100) fL MCH (25-34) pg MCHC (32-36) g/dL RDW Std Deviation (36.4-46.3) fL RDW Coeff of Baldo (11.5-14.5) % Plt Count (130-400) K/uL MPV (7.4-10.4) fL Immature Gran % (Auto) % Neut % (Auto) % Lymph % (Auto) % [place] % (Auto) % Eos % (Auto) % Baso % (Auto) % Neut # (Auto) (1.4-6.5) K/uL Lymph # (Auto) (1.2-3.4) K/uL [place] # (Auto) (0.11-0.59) K/uL Eos # (Auto) (0-0.5) K/uL Baso # (Auto) (0-0.2) K/uL Immature Gran # (Auto) (0.00-0.02) K/uL PT (9.0-12.0) Seconds INR (0.9-1.1) Sodium 135 L (136-145) mmol/L Potassium 3.6 (3.5-5.1) mmol/L Chloride 101 (98-107) mmol/L Carbon Dioxide 25 (21-32) mmol/L Anion Gap 9.0 (3-11) BUN 30 H (7-18) mg/dl Creatinine 1.48 H (0.6-1.4) mg/dl Est Cr Clr Drug Dosing 68.3 ml/min Est GFR ( Amer) 55.6 ml/min Est GFR (Non-Af Amer) 47.9 ml/min BUN/Creatinine Ratio 20.3 H (10-20) Glucose 91 (70-99) mg/dl POC Glucose 64 L* 63 L* (70-99) mg/dl Calcium 8.6 (8.5-10.1) mg/dl Total Bilirubin 0.8 (0.2-1) mg/dl AST 36 (15-37) U/L ALT 28 (12-78) U/L Alkaline Phosphatase 111 (45-117) U/L Troponin I < 0.015 (0-0.045) ng/ml Total Protein 7.1 (6.4-8.2) gm/dl Albumin 2.7 L (3.4-5.0) gm/dl Globulin 4.4 H (2.5-4.0) gm/dl Albumin/Globulin Ratio 0.6 L (0.9-2) TSH 1.470 (0.300-4.500) uIu/ml 03/04/21 Range/Units 18:03 WBC (4.8-10.8) K/uL RBC (4.7-6.1) M/uL Hgb (14.0-18.0) g/dL Hct (42-52) % MCV (80-100) fL MCH (25-34) pg MCHC (32-36) g/dL RDW Std Deviation (36.4-46.3) fL RDW Coeff of Baldo (11.5-14.5) % Plt Count (130-400) K/uL MPV (7.4-10.4) fL Immature Gran % (Auto) % Neut % (Auto) % Lymph % (Auto) % [place] % (Auto) % Eos % (Auto) % Baso % (Auto) % Neut # (Auto) (1.4-6.5) K/uL Lymph # (Auto) (1.2-3.4) K/uL [place] # (Auto) (0.11-0.59) K/uL Eos # (Auto) (0-0.5) K/uL Baso # (Auto) (0-0.2) K/uL Immature Gran # (Auto) (0.00-0.02) K/uL PT (9.0-12.0) Seconds INR (0.9-1.1) Sodium (136-145) mmol/L Potassium (3.5-5.1) mmol/L Chloride (98-107) mmol/L Carbon Dioxide (21-32) mmol/L Anion Gap (3-11) BUN (7-18) mg/dl Creatinine (0.6-1.4) mg/dl Est Cr Clr Drug Dosing ml/min Est GFR ( Amer) ml/min Est GFR (Non-Af Amer) ml/min BUN/Creatinine Ratio (10-20) Glucose (70-99) mg/dl POC Glucose 68 L* (70-99) mg/dl Calcium (8.5-10.1) mg/dl Total Bilirubin (0.2-1) mg/dl AST (15-37) U/L ALT (12-78) U/L Alkaline Phosphatase (45-117) U/L Troponin I (0-0.045) ng/ml Total Protein (6.4-8.2) gm/dl Albumin (3.4-5.0) gm/dl Globulin (2.5-4.0) gm/dl Albumin/Globulin Ratio (0.9-2) TSH (0.300-4.500) uIu/ml Administered Medications Atorvastatin Calcium (Atorvastatin 10 Mg Tab) 10 mg PO HS OFE Stop: 04/03/21 20:59 Last Admin: 03/04/21 21:41 Dose: 10 mg Documented by: [id number] Digoxin (Digoxin 0.125 Mg Tab) 0.125 mg PO DAILY@1600 [facility] Stop: 04/03/21 20:59 Last Admin: 03/04/21 21:48 Dose: Not Given Documented by: [id number] Furosemide (Furosemide 80 Mg Tab) 80 mg PO [id number] [facility] Stop: 04/03/21 20:59 Last Admin: 03/04/21 21:43 Dose: Not Given Documented by: [id number] Gabapentin (Gabapentin 300 Mg Cap) 300 mg PO TID OFE Stop: 04/03/21 20:59 Last Admin: 03/04/21 21:42 Dose: 300 mg Documented by: [id number] Heparin Sodium (Porcine) (Heparin Sod 5,000 Unit/0.5 Ml Vial) 5,000 units SQ Q8 [facility] Stop: 04/03/21 21:59 Last Admin: 03/04/21 21:44 Dose: 5,000 units Documented by: [id number] Dextrose/Sodium Chloride (D5w And Nss) 1,000 mls @ 80 mls/hr IV .[id number] [facility] Stop: 04/03/21 19:14 Last Admin: 03/04/21 20:05 Dose: 80 mls/hr Documented by: [id number] Metoprolol Succinate (Metoprolol Succ 50mg Ext Rel Tab) 150 mg PO BID [facility] Stop: 04/03/21 20:59 Last Admin: 03/04/21 21:43 Dose: Not Given Documented by: [id number] Discontinued Medications Dextrose (Dextrose 50% 50 Ml Syringe) 50 ml IV NOW ONE Stop: 03/04/21 18:21 Last Admin: 03/04/21 18:34 Dose: 50 ml Documented by: [id number] Sodium Chloride (Nss 1000ml) 500 mls @ 999 mls/hr IV .[id number] ONE Stop: 03/04/21 15:16 Last Infusion: 03/04/21 15:44 Dose: 0 mls/hr Documented by: [id number] Admin: 03/04/21 15:12 Dose: 999 mls/hr Documented by: [id number] Warfarin Sodium (Warfarin Sod 10 Mg Tab) 10 mg PO NOW ONE Stop: 03/04/21 20:57 Last Admin: 03/04/21 21:41 Dose: 10 mg Documented by: [id number] Discharge Plan Visit Data Chief Complaint: Hypoglycemia ED Provider: Neto,Wilfredo D. Discharge Problem: Hypoglycemia Patient Disposition: Admitted As Inpatient Condition: Good Discharge Instructions Interventions: ED Discharge Assessment Last Done: 03/04/21 20:30
[2021-03-04] MEDS ORDERED: SODIUM CHLORIDE 0.9% 1000ML 500 ML IV ONE (14:46)
[2021-03-04 14:52] LABS: Basophils # (auto) 0.01 K/uL (0-0.2); Basophils % (auto) 0.2 %; Eosinophils # (auto) 0.07 K/uL (0-0.5); Eosinophils % (auto) 1.2 %; Hematocrit (blood only) 39.2 % (42-52); Hemoglobin 12.7 g/dL (14.0-18.0); Immature Granulocytes # (auto) 0.03 K/uL (0.00-0.02); Immature Granulocytes % (auto) 0.5 %; Lymphocytes # (auto) 0.85 K/uL (1.2-3.4); Lymphocytes % (auto) 14.3 %; Mean Corpuscular Hemoglobin 29.6 pg (25-34); Mean Corpuscular Hgb Conc 32.4 g/dL (32-36); Mean Corpuscular Volume 91.4 fL (80-100); Mean Platelet Volume 10.7 fL (7.4-10.4); Monocytes # (auto) 0.55 K/uL (0.11-0.59); Monocytes % (auto) 9.2 %; Neutrophils # (auto) 4.44 K/uL (1.4-6.5); Neutrophils % (auto) 74.6 %; Platelet Count 177 K/uL (130-400); RDW Coefficient of Variation 14.9 % (11.5-14.5); RDW Standard Deviation 50.3 fL (36.4-46.3); Red Blood Count 4.29 M/uL (4.7-6.1); White Blood Count 5.95 K/uL (4.8-10.8)
[2021-03-04 14:57] LABS: INR 1.1 (0.9-1.1); Prothrombin Time 10.7 Seconds (9.0-12.0)
[2021-03-04 14:59] LABS: Alanine Aminotransferase 28 U/L (12-78); Albumin Level 2.7 gm/dl (3.4-5.0); Aspartate Aminotransferase 36 U/L (15-37); BUN Creatinine Ratio 20.3 (10-20); Blood Urea Nitrogen 30 mg/dl (7-18); Calcium 8.6 mg/dl (8.5-10.1); Carbon Dioxide 25 mmol/L (21-32); Chloride 101 mmol/L (98-107); Creatinine Clr Calc Pharmacy 68.3 ml/min; Est GFR (African American) 55.6 ml/min; Est GFR (Non-African American) 47.9 ml/min; Glucose 91 mg/dl (70-99); Potassium 3.6 mmol/L (3.5-5.1); Sodium 135 mmol/L (136-145)
[2021-03-04 15:10] LABS: Albumin Globulin Ratio 0.6 (0.9-2); Alkaline Phosphatase 111 U/L (45-117); Bilirubin,Total 0.8 mg/dl (0.2-1); Globulin 4.4 gm/dl (2.5-4.0); Total Protein 7.1 gm/dl (6.4-8.2); Troponin I < 0.015 ng/ml (0-0.045)
--- NOTE | 2021-03-04 17:07 | Pharmacy Report ---
ED Pharmacist Progress Note - ED Pharmacist Progress Note Date of Service:: March 04, 2021 Notes:: Discussed with Dr. Duque patient could possibly utilize temporary basal rates if not eating or requiring less insulin until able to speak with MTM clinic. Dr. Duque would like to decrease basal 20% for the next hour, from 2.2 to 1.75 units/hr. Spoke with patient regarding temporary basal rates and how to set up on his pump, manually showed patient on insulin pump and reduced to temporary ba boy of 80% for 1 hour (20% reduction) with patients permission. Patient verbalized understanding of being in temporary basal rate, visualized by the (T) next to basal on the home screen and will go back to regularly scheduled basal after set duration. He will discuss this feature with MTM clinic.
[2021-03-04] MEDS ORDERED: DEXTROSE 50% 50 ML SYRINGE IV ONE (18:20)
[2021-03-04] MEDS ORDERED: D5W AND NSS 1,000 ML IV SCH (19:15)
--- NOTE | 2021-03-04 19:28 | History & Physical Report ---
Date of Service March 04, 2021 Assessment & Plan (1) Hypoglycemia: (2) Diabetes mellitus, type 2: Plan: -Admit to [facility] with telemetry -Patient presenting from home with reports of blood sugar of 29 this morning -History of DM type II on insulin pump and Trulicity, Hgb A1c 12.3 10/2020 -Remained hypoglycemic in the 60s in the ED despite D50 and food -Discontinue insulin pump, start D5 infusion -BSG q2h -Patient has history of medication noncompliance, this may be playing a role here with patient's ability to manage insulin pump at home -Glycemic pharmacy consult (3) Chronic diastolic CHF (congestive heart failure): Plan: -Appears euvolemic, continue home diuretics (4) History of pulmonary embolism: Plan: -On Coumadin, INR 1.1 -Increase Coumadin to 10 mg today, then resume home dosing tomorrow (5) Paroxysmal atrial fibrillation: Plan: -Rate controlled on metoprolol and digoxin -Coumadin as above (6) Tachy-sherry syndrome: (7) Pacemaker: Plan: -No acute issues (8) CKD (chronic kidney disease) stage 3, GFR 30-59 ml/min: Plan: -Baseline creatinine runs in the mid 1's -Creatinine 1.4 today -Monitor renal functions (9) DVT prophylaxis: Plan: -SQ heparin until INR > 2.0 History of Present Illness Chief Complaint: Hypoglycemia Primary Care Provider: Pura Grimm MD 70-year-old male with PMH DM type II on insulin pump, CKD stage III, hypothyroidism, COPD, SALAS, tachycardia induced cardiomyopathy, HTN, chronic diastolic CHF, history of pulmonary embolism anticoagulated on Coumadin, paroxysmal atrial fibrillation, tachybradycardia syndrome s/p pacemaker, and other problems listed below who presents the ED for evaluation of hypoglycemia. Patient reports that when he woke up this morning he felt very weak, lightheaded, diaphoretic. He was unable to get up so he pushed his life alert button. When EMS arrived, patient's blood sugar was found to be 29. Patient was brought to the ED for further evaluation. Patient reports he otherwise has been feeling well recently. Reports eating lunch and dinner yesterday. Also reports compliance with insulin pump. Denies any other recent illnesses, fevers, chills. No chest pain or shortness of breath. Denies syncopal events. No abdominal pain, nausea, vomiting, diarrhea. Has chronic lower extremity edema which is unchanged from baseline. No urinary symptoms. In the ED, patient's blood sugar was initially 99 however despite receiving D50 and food, patient's blood sugar dropped again to the 60s. Other labs are unremarkable. Allergies Allergy/AdvReac Type Severity Reaction Status Date / Time No Known Allergies Allergy Verified 03/04/21 19:07 Home Medications Medication Instructions Recorded Confirmed Type digoxin 125 mcg (0.125 mg) tablet 0.125 mg PO QPM #0 07/13/16 03/04/21 History aspirin 81 mg tablet,delayed 81 mg PO QAM 05/11/18 03/04/21 History release (Adult Low Dose Aspirin) levothyroxine 50 mcg tablet 50 mcg PO QAM 06/24/18 03/04/21 History duloxetine 60 mg capsule,delayed 60 mg PO QAM 08/31/18 03/04/21 History release cholecalciferol (vitamin D3) 50 2,000 units PO QAM 05/13/19 03/04/21 History mcg (2,000 unit) capsule allopurinol 300 mg tablet 300 mg PO QAM 05/25/19 03/04/21 History levothyroxine 200 mcg tablet 200 mcg PO QAM #0 tab 05/25/19 03/04/21 History omeprazole 20 mg capsule,delayed 20 mg PO QAM 05/25/19 03/04/21 History release tramadol 50 mg tablet 50 mg PO BID PRN 05/30/19 03/04/21 History potassium chloride 20 mEq 20 meq PO DAILY 07/12/19 03/04/21 History tablet,extended release(part/cryst) (Klor-Con M) albuterol sulfate 90 mcg/actuation 2 puffs INH QID PRN gm 12/14/19 03/04/21 History aerosol inhaler atorvastatin 20 mg tablet 10 mg PO HS 12/14/19 03/04/21 History gabapentin 300 mg capsule 300 mg PO TID 12/14/19 03/04/21 History meclizine 12.5 mg tablet 12.5 mg PO TID PRN 12/14/19 03/04/21 History bupropion HCl 150 mg 24 hr tablet, 150 mg PO QAM 02/13/20 03/04/21 History extended release insulin regular hum U-500 conc 500 0 unit CONTINUOUS SUBCUTANEOUS 02/13/20 03/04/21 History unit/mL subcutaneous soln INFUSION CONTINOUS metoprolol succinate 100 mg 150 mg PO BID 02/13/20 03/04/21 History tablet,extended release 24 hr omega-3 250 np-lck-ueo-lutein 2.5 1 cap PO BID 02/13/20 03/04/21 History mg-zeaxanthin 0.5 mg capsule ([facility]) warfarin 4 mg tablet 4 mg PO SUTH 02/13/20 03/04/21 History colchicine 0.6 mg capsule 0.6 mg PO Q OTHER DAY #0 cap 03/02/20 03/04/21 History oxybutynin chloride 10 mg 10 mg PO DAILY 03/29/20 03/04/21 History tablet,extended release 24 hr (Ditropan XL) multivitamin with minerals 1 tab PO DAILY 06/19/20 03/04/21 History (Multiple Vitamin-Minerals) nitroglycerin 0.4 mg sublingual 0.4 mg SUBLINGUAL UD PRN 06/19/20 03/04/21 History tablet sennosides 8.6 mg-docusate sodium 1 tab-cap PO BID PRN 07/16/20 03/04/21 History 50 mg tablet (Senna with Docusate Sodium) furosemide 80 mg tablet 80 mg PO BID 11/01/20 03/04/21 History magnesium oxide 400 mg PO DAILY 11/01/20 03/04/21 History metolazone 2.5 mg tablet 2.5 mg PO DAILY PRN 11/01/20 03/04/21 History spironolactone 25 mg tablet 25 mg PO DAILY 11/01/20 03/04/21 History (Aldactone) dulaglutide 1.5 mg/0.5 mL 1.5 mg SUBCUT WK 03/04/21 03/04/21 History subcutaneous pen injector (Trulicity) nystatin 100,000 unit/gram topical 1 applic TOPICAL BID 03/04/21 03/04/21 History powder warfarin 4 mg tablet 8 mg PO MOTUWEFRSA 03/04/21 03/04/21 History Past Med/Surg History Medical History Abnormal chest x-ray 06/18/20 right hilar opacity, f/u recommended Anticoagulant long-term use Arthritis Atrial fibrillation paroxysmal Atrial flutter Bifascicular block CAD (coronary artery disease) Cardiac pacemaker in situ Cardiomyopathy Chronic anticoagulation Chronic diastolic CHF (congestive heart failure) Chronic venous insufficiency CKD (chronic kidney disease) stage 3, GFR 30-59 ml/min Claustrophobia Closed fracture of thyroid cartilage COPD, moderate Depression Diabetes mellitus, type 2 insulin pump Fatty liver Gout Hyperlipidemia Hypertension Hypothyroidism Iatrogenic pulmonary embolism Interstitial lung disease Morbid obesity MRSA infection Nephrolithiasis Nocturnal hypoxemia SALAS (obstructive sleep apnea) Osteoarthritis Paroxysmal atrial fibrillation Prolonged QT interval Pulmonary embolism B/L- 5+ years ago Sarcoidosis possible- evaluated by pulmonary; felt no active sarcoidosis and would not merit steroid therapy given weight/diabetic state. 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 "prior EF of 25% while in aflutter, subsequently normal in NSR" Surgical History H/O cardiac radiofrequency ablation H/O prior ablation treatment History of arthroscopic knee surgery History of bronchoscopy History of cataract surgery local anesthesia only per pt History of cholecystectomy History of extraction of renal calculus History of lung surgery thoracoscopy, right VATS, wedge resection History of umbilical hernia repair Hx of carpal tunnel repair Pacemaker Implanted 02/2017 secondary to Sinus node dysfunction/tachy sherry syndrome/3rd degree AVB [employer] Pacer check 12/24/17 Status post incision and drainage Family History Mother Cancer Social History Smoking Status: Never smoker Second Hand Exposure: No; Hx Alcohol Use: No Hx Substance Use: No Preferred Language: Maltese Communication Ability: Effective Visual Impairment: No Limitations Hearing Ability: Normal Spool Cleaner Hand Required: No Beliefs That Will Affect Care: None marital status: Current Living Situation: Alone current occupational status: retired How many Children do You have: 2 Feels Safe at Home: Yes Diet Comment: FLUID RESTRICTION during the past year weight has: other Assistive Devices: Denture - Upper, Denture - Lower and Walker Review of Systems Review of Systems: ROS per HPI, all other systems reviewed and negative Physical Exam Constitutional: WD/WN, vitals as above + obese Eyes: PERRL, conjunctivae normal, anicteric sclerae ENMT: external ear and nose normal, oropharynx normal Respiratory: normal respiratory effort, lungs clear to auscultation Cardiovascular: Rate/Rhythm: regular rate and + irregularly irregular Vessels: normal peripheral pulses Extremities: + edema (+1-2 pitting BLE) Gastrointestinal (Abdomen): normal bowel sounds, soft, nontender, no hepatosplenomegaly Musculoskeletal: no cyanosis or clubbing, extremities motor strength 5/5 Skin: no rashes, warm and dry Chronic venous changes BLE Neurologic: PERRL, EOMI, accommodation nl, no face palsy, no dysarthria Psychiatric: A+Ox3, euthymic affect Results & Data Results & Data ([facility]) Vital Signs (Past 12 Hours) Vital Signs Temp Pulse Pulse Resp BP BP Pulse Ox 03/04/21 18:40 89 16 102/62 96 03/04/21 18:37 90 16 77/49 L 97 03/04/21 18:30 92 H 21 102/62 93 03/04/21 18:00 94 H 20 93 03/04/21 17:32 93 H 20 03/04/21 17:01 85 14 105/53 L 93 03/04/21 16:30 93 H 22 96/58 L 94 03/04/21 16:00 95 H 20 97/64 L 96 03/04/21 15:31 88 17 60/48 L 03/04/21 15:13 83 20 84/55 L 95 03/04/21 15:03 99 H 22 03/04/21 14:31 94 H 22 92/53 L 03/04/21 14:15 36.8 C 75 20 92/53 L 96 Laboratory Results Short CBC 03/04/21 Range/Units 14:30 WBC 5.95 (4.8-10.8) K/uL Hgb 12.7 L (14.0-18.0) g/dL Hct 39.2 L (42-52) % Plt Count 177 (130-400) K/uL BMP 03/04/21 14:30 Sodium 135 L Potassium 3.6 Chloride 101 Carbon Dioxide 25 BUN 30 H Creatinine 1.48 H Glucose 91 Calcium 8.6 Cardiac Enzymes 03/04/21 Range/Units 14:30 Troponin I < 0.015 (0-0.045) ng/ml Liver Function 03/04/21 Range/Units 14:30 Total Bilirubin 0.8 (0.2-1) mg/dl AST 36 (15-37) U/L ALT 28 (12-78) U/L Alkaline Phosphatase 111 (45-117) U/L Albumin 2.7 L (3.4-5.0) gm/dl Code Status & VTE Plan VTE Prophylaxis Plan VTE Prophylaxis will be ordered: Yes Supervising Physician Co-Signing Physician Notes Attending Addendum: delayed entry date of service noted above care coordinated with RAO oliva please refer to her notes for full details, I agree with her notes patient seen and examined, records reviewed by myself as well on exam, patient seen resting in bed, comfortable, not in distress no chest pain, dyspnea, palpitations, dizziness no other symptoms VS noted and reviewed oriented x 3, not in distress, speaks in sentences with no effort nor accessory muscle use normal rate, regular rhythm, no murmurs clear breath sounds bilaterally non distended, soft, nontender mild bipedal edema, erythema, warmth no neuro deficits WBC 5.9 Hg 4.2 Crea 1.4 ASSESSMENT AND PLAN Hypoglycemia Diabetes type 2 on insulin pump Secondary to missing Meals D5 NSS Pharmacy glycemic control consult History of DVT, paroxysmal A. fib Resume Coumadin other diagnoses and plan of care as per RAO oliva's notes Enrike Lanier MD (1) Diabetes mellitus, type 2 Diabetes mellitus complication detail: without coma Diabetes mellitus complication status: with hypoglycemia Diabetes mellitus [facility] insulin use: with wall steamer use Qualified Code(s): E11.649 - Type 2 diabetes mellitus with hypoglycemia without coma; Z79.4 - [facility] (current) use of insulin (2) CKD (chronic kidney disease) stage 3, GFR 30-59 ml/min Chronic kidney disease stage 3 subtype: unspecified whether 3a or 3b Qualified Code(s): N18.30 - Chronic kidney disease, stage 3 unspecified
[2021-03-04] MEDS ORDERED: DOCUSATE SODIUM/SENNA 50/8.6MG TAB PO PRN (20:56)
[2021-03-04] MEDS ORDERED: traMADol HCL 50 MG TABLET PO PRN (20:56)
[2021-03-04] MEDS ORDERED: WARFARIN SOD 10 MG TAB PO ONE (20:56)
[2021-03-04] MEDS ORDERED: ACETAMINOPHEN 325 MG TAB PO PRN (20:56)
[2021-03-04] MEDS ORDERED: PHARMACY GLYCEMIC MGMT CONSULT PRN (20:56)
[2021-03-04] MEDS ORDERED: GLUCOSE 40% GEL 15 GM TUBE PO PRN (21:30)
[2021-03-04] MEDS ORDERED: GLUCOSE 10 TABS/TUBE PO PRN (21:30)
[2021-03-04] MEDS ORDERED: DEXTROSE 50% 50 ML SYRINGE IV PRN (21:30)
[2021-03-04] MEDS ORDERED: GLUCAGON FOR INJ 1 MG VIAL IM PRN (21:30)
[2021-03-04] MEDS: ATORVASTATIN 10 MG TAB PO SCH (21:41)
[2021-03-04] MEDS: GABAPENTIN 300 MG CAP PO SCH (21:42)
[2021-03-04] MEDS: METOPROLOL SUCC 50MG EXT REL TAB PO SCH (21:43)
[2021-03-04] MEDS: FUROSEMIDE 80 MG TAB PO SCH (21:43)
[2021-03-04] MEDS: HEPARIN SOD 5,000 UNIT/0.5 ML VIAL SQ SCH (21:44)
[2021-03-04] MEDS: DIGOXIN 0.125 MG TAB PO SCH (21:48)
[2021-03-04] MEDS ORDERED: MICONAZOLE NITRATE POWDER 43 GM EXT PRN (22:18)
[2021-03-05] MEDS: INSULIN ASPART 100 UNITS/ML 3 ML PEN SC SCH ×6 (00:13→20:30)
[2021-03-05] MEDS: CARBOHYDRATES FOR HYPOGLYCEMIA PO PRN ×4 (02:15→21:00)
[2021-03-05] MEDS ORDERED: DEXTROSE 5% 1,000 ML IV SCH (03:00)
[2021-03-05] MEDS: HEPARIN SOD 5,000 UNIT/0.5 ML VIAL SQ SCH ×3 (06:03→21:04)
[2021-03-05] MEDS: LEVOTHYROXINE SODIUM 50 MCG TABLET PO SCH (06:03)
[2021-03-05] MEDS: LEVOTHYROXINE SODIUM 200 MCG TABLET PO SCH (06:03)
[2021-03-05] MEDS: ASPIRIN 81 MG ECTAB PO SCH (07:52)
[2021-03-05] MEDS: CHOLECALCIFEROL 1,000 UNITS 25 MCG TAB PO SCH (07:52)
[2021-03-05] MEDS: buPROPion XL 150 MG TABCR PO SCH (07:52)
[2021-03-05] MEDS: MAGNESIUM OXIDE 400 MG TAB PO SCH (07:52)
[2021-03-05] MEDS: MULTIVITAMIN TAB PO SCH (07:53)
[2021-03-05] MEDS: METOPROLOL SUCC 50MG EXT REL TAB PO SCH ×2 (07:53→20:31)
[2021-03-05] MEDS: POTASSIUM CHLORIDE CRTAB 20 MEQ TABCR PO SCH (07:53)
[2021-03-05] MEDS: PANTOprazole 40 MG TAB PO SCH (07:53)
[2021-03-05] MEDS: OXYBUTYNIN CHLORIDE XL 5 MG TABCR PO SCH (07:53)
[2021-03-05] MEDS: SPIRONOLACTONE 25 MG TAB PO SCH (07:54)
[2021-03-05] MEDS: allopurinoL 300 MG TAB PO SCH (07:54)
[2021-03-05] MEDS: DULoxetine HCL 60 MG CAP PO SCH (07:54)
[2021-03-05] MEDS: FUROSEMIDE 80 MG TAB PO SCH ×2 (07:54→17:22)
[2021-03-05] MEDS: GABAPENTIN 300 MG CAP PO SCH ×3 (07:54→20:32)
[2021-03-05 08:06] LABS: Hematocrit (blood only) 39.9 % (42-52); Mean Corpuscular Hemoglobin 29.6 pg (25-34); Mean Corpuscular Hgb Conc 32.6 g/dL (32-36); Mean Corpuscular Volume 90.9 fL (80-100); Platelet Count 171 K/uL (130-400); RDW Standard Deviation 49.8 fL (36.4-46.3); Red Blood Count 4.39 M/uL (4.7-6.1); White Blood Count 4.58 K/uL (4.8-10.8)
[2021-03-05 08:14] LABS: INR 1.1 (0.9-1.1)
[2021-03-05 08:43] LABS: BUN Creatinine Ratio 20.2 (10-20); Calcium 8.9 mg/dl (8.5-10.1); Creatinine Clr Calc Pharmacy 71.5 ml/min; Est GFR (African American) 59.4 ml/min; Est GFR (Non-African American) 51.3 ml/min; Potassium 3.9 mmol/L (3.5-5.1)
[2021-03-05] MEDS ORDERED: COLCHICINE 0.6 MG TAB PO SCH (09:00)
[2021-03-05] MEDS ORDERED: HUMULIN R U SC SCH ×2 (11:30→17:30)
--- NOTE | 2021-03-05 14:04 | Pharmacy Report ---
Pharmacy Glycemic Short Note 2 - Date of Service March 05, 2021 - Glycemic Short BSG Results (Last 24 hours): 03/04/21 03/04/21 03/04/21 14:25 14:30 15:53 Glucose 91 POC Glucose 99 64 L* 03/04/21 03/04/21 03/04/21 16:30 18:03 20:07 Glucose POC Glucose 63 L* 68 L* 133 H 03/04/21 03/05/21 03/05/21 22:03 00:09 02:06 Glucose POC Glucose 113 H 77 63 L* 03/05/21 03/05/21 03/05/21 02:32 02:33 02:56 Glucose POC Glucose 58 L* 59 L* 96 03/05/21 03/05/21 03/05/21 03:54 06:05 07:37 Glucose 141 H POC Glucose 90 117 H 03/05/21 03/05/21 03/05/21 08:00 10:11 11:58 Glucose POC Glucose 145 H 221 H 180 H OUTPATIENT ANTIDIABETIC REGIMEN: * U-500 insulin pump * Per [facility] pharmacist note 11/28/20 * U500 regular insulin - ALL UNITS BELOW ARE ACTUALLY 5X NUMBER LISTED * 00-08: 0.6 unit/hr * 08-09: 2 unit/hr * -17: 2.2 unit/hr * 17-00: 0.6 unit/hr * Pre-set bolus: 25 units w/ breakfast, 18 units w/ lunch, and 14 units with dinner + correction factor of 25 for BSG over 150 mg/dL * Trulicity 0.75 mg SC weekly ASSESSMENT: * BR is a 70 year old male presented to [facility] ED on 03/04 for evaluation of hypoglycemia * BSG of 29 mg/dL upon EMS arrival * Patient utilizes U-500 insulin pump at home and was scheduled to see [facility] clinic today * Patient reports decreased PO intake recently * U-500 pump disconnected yesterday due to hypoglycemia and IV fluids containing dextrose initiated * BSGs trended up and at 145 mg/dL this morning and fluids discontinued * Will use previous admission data to guide initial dosing PLAN FOR INPATIENT GLYCEMIC CONTROL: * U-500 * 50 units SC x 1 this morning * 30 units SC with lunch * Plan on 30 units SC with dinner * Bolus insulin * NovoLog per scale ACHS or Q6hrs while NPO * Goal Range: Low 120 mg/dL - High 160 mg/dL * Correction Factor: 25 mg/dL/unit * No carb coverage for now PLAN FOR DISCHARGE: * HbA1c pending * Based on BSG of 26 mg/dL at presentation, patient will likely require basal dose reduction on insulin pump * Reasonable to hold Trulicity at discharge as well until patient can be a ssessed
[2021-03-05] MEDS: WARFARIN SOD 4 MG TAB PO SCH (16:17)
[2021-03-05] MEDS: DIGOXIN 0.125 MG TAB PO SCH (16:17)
--- NOTE | 2021-03-05 19:47 | Hospitalist Progress Note ---
Date of Service March 05, 2021 delayed entry date of service noted above Assessment & Plan (1) Hypoglycemia: (2) Diabetes mellitus, type 2: Plan: - hypoglycemia resolved d/c [id number] - discussed with Glycemic control pharmacist information to be obtained from [facility] to determine possible changes on Insulin Pump (3) Chronic diastolic CHF (congestive heart failure): Plan: -Appears euvolemic, continue home diuretics (4) History of pulmonary embolism: Plan: - continue coumadin (5) Paroxysmal atrial fibrillation: Plan: -Rate controlled on metoprolol and digoxin -Coumadin as above (6) Tachy-sherry syndrome: (7) Pacemaker: Plan: -No acute issues (8) CKD (chronic kidney disease) stage 3, GFR 30-59 ml/min: Plan: -Baseline creatinine runs in the mid 1's stable at 1.4 (9) DVT prophylaxis: Plan: -SQ heparin until INR > 2.0 Plan: Disposition rehabilitation case coordinator on board verbalized concern for patient's ability to care for himself at home katherin with medications Admission and Anticipated Discharge Date Admission Date: March 04, 2021 Subjective ff up for hypoglycemia seen resting in bed, comfortable sitting up states he feels fine overall no chest pain, dyspnea, palpitations, dizziness no headache, focal neuro deficits no abdominal pain,nausea no fever/chills no other symptoms Review of Systems Review of Systems: all noted and negative except for above Physical Exam Physical Exam: General- oriented x 3, not in distress, speaks in sentences with no effort or accessory muscle use Eyes- anicteric Neck- no JVD Lungs- clear BS BL Heart- normal rate, regular rhythm; no murmurs Abdomen- normal bowel sounds, nondistended, soft, nontender Extremities- no pretibial edema, no calf tenderness Neuro- alert, oriented x 3; no gross focal neurologic deficits Skin- warm & dry Results & Data Results & Data ([facility]) Vital Signs (Past 12 Hours) Vital Signs Temp Pulse Pulse Resp BP Pulse Ox 03/05/21 19:12 36.8 C 71 18 111/65 93 03/05/21 16:17 68 03/05/21 15:12 36.4 C L 52 L 18 106/71 96 03/05/21 11:11 36.3 C L 89 20 123/81 92 (1) Diabetes mellitus, type 2 Diabetes mellitus complication detail: without coma Diabetes mellitus complication status: with hypoglycemia Diabetes mellitus termite helper insulin use: with termite helper use Qualified Code(s): E11.649 - Type 2 diabetes mellitus with hypoglycemia without coma; Z79.4 - termite inspector (current) use of insulin (2) CKD (chronic kidney disease) stage 3, GFR 30-59 ml/min Chronic kidney disease stage 3 subtype: unspecified whether 3a or 3b Qualified Code(s): N18.30 - Chronic kidney disease, stage 3 unspecified
[2021-03-05] MEDS: ATORVASTATIN 10 MG TAB PO SCH (20:32)
[2021-03-06] MEDS ORDERED: INSULIN ASPART 100 UNITS/ML 3 ML PEN SC SCH (02:00)
[2021-03-06] MEDS: HEPARIN SOD 5,000 UNIT/0.5 ML VIAL SQ SCH ×2 (05:33→13:11)
[2021-03-06] MEDS: LEVOTHYROXINE SODIUM 200 MCG TABLET PO SCH (05:34)
[2021-03-06] MEDS: LEVOTHYROXINE SODIUM 50 MCG TABLET PO SCH (05:34)
[2021-03-06 07:49] LABS: Estimated Average Glucose 183 mg/dl
[2021-03-06] MEDS: allopurinoL 300 MG TAB PO SCH (08:47)
[2021-03-06] MEDS: ASPIRIN 81 MG ECTAB PO SCH (08:47)
[2021-03-06] MEDS: FUROSEMIDE 80 MG TAB PO SCH ×2 (08:50→16:16)
[2021-03-06] MEDS: MULTIVITAMIN TAB PO SCH (08:50)
[2021-03-06] MEDS: DULoxetine HCL 60 MG CAP PO SCH (08:50)
[2021-03-06] MEDS: PANTOprazole 40 MG TAB PO SCH (08:50)
[2021-03-06] MEDS: CHOLECALCIFEROL 1,000 UNITS 25 MCG TAB PO SCH (08:51)
[2021-03-06] MEDS: MAGNESIUM OXIDE 400 MG TAB PO SCH (08:51)
[2021-03-06] MEDS: GABAPENTIN 300 MG CAP PO SCH ×2 (08:52→13:11)
[2021-03-06] MEDS: METOPROLOL SUCC 50MG EXT REL TAB PO SCH (08:53)
[2021-03-06] MEDS: OXYBUTYNIN CHLORIDE XL 5 MG TABCR PO SCH (08:54)
[2021-03-06] MEDS: SPIRONOLACTONE 25 MG TAB PO SCH (08:55)
[2021-03-06] MEDS: INSULIN ASPART 100 UNITS/ML 3 ML PEN SC SCH ×2 (09:00→12:40)
[2021-03-06] MEDS: POTASSIUM CHLORIDE CRTAB 20 MEQ TABCR PO SCH (09:05)
[2021-03-06 09:32] LABS: INR 1.5 (0.9-1.1); Prothrombin Time 14.6 Seconds (9.0-12.0)
[2021-03-06] MEDS: buPROPion XL 150 MG TABCR PO SCH (10:50)
--- NOTE | 2021-03-06 11:22 | Pharmacy Report ---
Pharmacy Glycemic Short Note 2 - Date of Service March 06, 2021 - Glycemic Short BSG Results (Last 24 hours): 03/05/21 03/05/21 03/05/21 11:58 16:35 20:23 POC Glucose 180 H 113 H 52 L* 03/05/21 03/05/21 03/05/21 20:43 21:00 21:17 POC Glucose 55 L* 53 L* 75 03/06/21 03/06/21 02:06 07:59 POC Glucose 136 H 162 H OUTPATIENT ANTIDIABETIC REGIMEN: * U-500 insulin pump * Per [facility] pharmacist note 11/28/20 * U500 regular insulin - ALL UNITS BELOW ARE ACTUALLY 5X NUMBER LISTED * 00-06: 0.6 unit/hr * -: 2 unit/hr * -: 2.2 unit/hr * -: 0.6 unit/hr * Pre-set bolus: 25 units w/ breakfast, 18 units w/ lunch, and 14 units with dinner + correction factor of 25 for BSG over 150 mg/dL * *Patient reports infrequent use of bolus dosing* * Trulicity 0.75 mg SC weekly ASSESSMENT: 03/06 * Received 110 units of U-500 insulin yesterday + 1 additional unit of Novolog * Will plan on larger SC dose this morning, hold off on lunchtime dose in anticipation of insulin pump being reconnected later today * Basal rates adjusted on pump following discussion with outpatient provider (see discharge note below) * Plan is for discharge later today after pump is reconnected 03/05 * BR is a 70 year old male presented to [facility] ED on 03/04 for evaluation of hypoglycemia * BSG of 29 mg/dL upon EMS arrival * Patient utilizes U-500 insulin pump at home and was scheduled to see [facility] clinic today * Patient reports decreased PO intake recently * U-500 pump disconnected yesterday due to hypoglycemia and IV fluids containing dextrose initiated * BSGs trended up and at 145 mg/dL this morning and fluids discontinued * Will use previous admission data to guide initial dosing PLAN FOR INPATIENT GLYCEMIC CONTROL: * U-500 * 70 units SC x 1 this morning * Will hold off on evening dose as patient is to have pump reconnected this evening prior to discharge * Bolus insulin * NovoLog per scale ACHS or Q6hrs while NPO * Goal Range: Low 120 mg/dL - High 160 mg/dL * Correction Factor: 25 mg/dL/unit * No carb coverage for now PLAN FOR DISCHARGE: * HbA1c: 8% (03/06/21) - significant improvement from October (12.3%) * Likely due to initiation of Trulicity, which may also explain decreased appetite and decreased overall insulin needs * Discussed case with pharmacist at [facility] to make more informed recs for discharge. She suggested basal rate reduction during daytime hours. Antonina (certified personal finance counselor) assisted in adjusting basal rates on pump. * Basal rate adjustments - changed basal rates from [id number] to 1.5 units/hr (~25-30% reduction) * Continue Trulicity * Ensure prompt outpatient follow-up with [facility] for further insulin adjustments
--- NOTE | 2021-03-06 13:34 | Hospitalist Progress Note ---
Date of Service March 06, 2021 Assessment & Plan (1) Hypoglycemia: (2) Diabetes mellitus, type 2: Plan: Patient presenting due to hypoglycemia with blood sugar of 29 H/O DM II on Insulin Pump and recently started on Trulicity Hgb A1c 12.3 10/2020 Insulin pump adjusted. changed basal rates from [id number] to 1.5 units/hr Plan to continue Trulicity D5 infusion discontinued Appreciate glycemic pharmacy input Monitor blood glucose levels (3) Chronic diastolic CHF (congestive heart failure): Plan: Appears euvolemic continue home diuretics (4) History of pulmonary embolism: Plan: Subtherapeutic INR on presentation On Coumadin, INR 1.1 INR: 1.5 today Continue Coumadin Needs follow up with Coumadin clinic upon discharge (5) Paroxysmal atrial fibrillation: Plan: -Rate controlled Continue metoprolol and digoxin (6) Tachy-sherry syndrome: (7) Pacemaker: Plan: No acute issues (8) CKD (chronic kidney disease) stage 3, GFR 30-59 ml/min: Plan: Baseline creatinine runs in the mid 1's Creatinine 1.4 Monitor renal functions (9) DVT prophylaxis: Plan: SQ heparin until INR > 2.0 Admission and Anticipated Discharge Date Admission Date: March 05, 2021 Subjective Patient is seen and examined at bedside States feeling well today Eager to get discharged Discussed with pharmacy regarding insulin adjustment Denies chest pain, shortness with, dizziness, nausea, abdominal pain Offers no other complaints Review of Systems Review of Systems: All systems reviewed & are unremarkable except as noted in Subjective Physical Exam Physical Exam: Physical Exam: Vitals signs as noted above General Appearance:Morbidly Obese, no apparent distress Head: normocephalic, Atraumatic Eyes: normal inspection, EOMI Neck: supple, Trachea midline Respiratory/Chest: Normal breath sounds, CTA Cardiovascular: S1, S2, No murmur Abdomen/GI:Soft, Non tender, Bowel sounds present Extremities/Musculoskeletal:normal inspection,Chronic venous stais Neurologic/Psych:AAOX3, grossly no focal neurological deficits Skin: normal color, warm Results & Data Results & Data ([facility]) Vital Signs (Past 12 Hours) Vital Signs Temp Pulse Pulse Resp BP Pulse Ox 03/06/21 11:37 36.4 C L 66 18 124/70 92 03/06/21 07:49 36.4 C L 67 16 107/67 91 03/06/21 04:29 36.4 C L 82 20 115/60 93 03/06/21 04:11 66 (1) Diabetes mellitus, type 2 Diabetes mellitus [facility] insulin use: with mcc use Diabetes mellitus complication status: with hypoglycemia Diabetes mellitus complication detail: without coma Qualified Code(s): E11.649 - Type 2 diabetes mellitus with hypoglycemia without coma; Z79.4 - editor school photograph (current) use of insulin (2) CKD (chronic kidney disease) stage 3, GFR 30-59 ml/min Chronic kidney disease stage 3 subtype: unspecified whether 3a or 3b Qualified Code(s): N18.30 - Chronic kidney disease, stage 3 unspecified
--- NOTE | 2021-03-06 13:55 | Discharge Summary ---
Date of Service March 06, 2021 Admission HPI Per Admitting Provider 70-year-old male with PMH DM type II on insulin pump, CKD stage III, hypothyroidism, COPD, SALAS, tachycardia induced cardiomyopathy, HTN, chronic diastolic CHF, history of pulmonary embolism anticoagulated on Coumadin, paroxysmal atrial fibrillation, tachybradycardia syndrome s/p pacemaker, and other problems listed below who presents the ED for evaluation of hypoglycemia. Patient reports that when he woke up this morning he felt very weak, lightheaded, diaphoretic. He was unable to get up so he pushed his life alert button. When EMS arrived, patient's blood sugar was found to be 29. Patient was brought to the ED for further evaluation. Patient reports he otherwise has been feeling well recently. Reports eating lunch and dinner yesterday. Also reports compliance with insulin pump. Denies any other recent illnesses, fevers, chills. No chest pain or shortness of breath. Denies syncopal events. No abdominal pain, nausea, vomiting, diarrhea. Has chronic lower extremity edema which is unchanged from baseline. No urinary symptoms. In the ED, patient's blood sugar was initially 99 however despite receiving D50 and food, patient's blood sugar dropped again to the 60s. Other labs are unremarkable. Admission Exam Per Admitting Provider Physical Exam Constitutional: WD/WN, vitals as above + obese Eyes: PERRL, conjunctivae normal, anicteric sclerae ENMT: external ear and nose normal, oropharynx normal Respiratory: normal respiratory effort, lungs clear to auscultation Cardiovascular: Rate/Rhythm: regular rate and + irregularly irregular Vessels: normal peripheral pulses Extremities: + edema (+1-2 pitting BLE) Gastrointestinal (Abdomen): normal bowel sounds, soft, nontender, no hepatosplenomegaly Musculoskeletal: no cyanosis or clubbing, extremities motor strength 5/5 Skin: no rashes, warm and dry Chronic venous changes BLE Neurologic: PERRL, EOMI, accommodation nl, no face palsy, no dysarthria Psychiatric: A+Ox3, euthymic affect Principal Diagnosis Hypoglycemia Subtherapeutic INR Discharge Data Allergies Allergy/AdvReac Type Severity Reaction Status Date / Time No Known Allergies Allergy Verified 03/04/21 19:07 Consultations 03/04/21 18:20 ED Decision to Admit Stat Hospital Course (1) Hypoglycemia: (2) Diabetes mellitus, type 2: Patient presenting due to hypoglycemia with blood sugar of 29 H/O DM II on Insulin Pump and recently started on Trulicity Hgb A1c 12.3 10/2020 Insulin pump adjusted. changed basal rates from [id number] to 1.5 units/hr Plan to continue Trulicity D5 infusion discontinued Appreciate glycemic pharmacy input Monitor blood glucose levels (3) Chronic diastolic CHF (congestive heart failure): Appears euvolemic continue home diuretics (4) History of pulmonary embolism: Subtherapeutic INR on presentation On Coumadin, INR 1.1 INR: 1.5 today Continue Coumadin Needs follow up with Coumadin clinic upon discharge (5) Paroxysmal atrial fibrillation: -Rate controlled Continue metoprolol and digoxin (6) Tachy-sherry syndrome: (7) Pacemaker: No acute issues (8) CKD (chronic kidney disease) stage 3, GFR 30-59 ml/min: Baseline creatinine runs in the mid 1's Creatinine 1.4 Monitor renal functions (9) DVT prophylaxis: SQ heparin until INR > 2.0 Total Time Total Time Spent Total Time Spent (In Minutes): 40 minutes Discharge Plan Discharge Items Patient Disposition: Home - Home Health Services Reason For Visit: HYPOGLYCEMIA Discharge Diagnosis: Hypoglycemia Subtherapeutic INR Condition on Discharge: Good Activity: Per Instructions section Exercise/Sports: Gradually increase as tolerated Non-emergency contact: Primary Care Provider and Specialist Call non-emergency contact if: you have any medication questions, your symptoms worsen, your pain is concerning for you and you have a fever Follow-up/Referrals: Pura Willingham MD [Primary Care Provider] - (Date & Time 03/14/2021 12:00 PM Provider Pura Grimm MD Department Family Medicine [facility] ) Diet: Carb Consistent or DM2 and Heart Healthy Addtl Attending Provider Instructions: Follow-up with your primary care physician Dr. Rodrick Grimm on 03/14/2021 12:00 PM Follow-up with Coumadin clinic for adjusting your Coumadin dosing and monitoring your PT/INR as advised. Your insulin pump was adjusted for basal rates from [id number] to 1.5 units/hr. Further management as per your physician. Seek immediate medical attention if your symptoms reoccur or worsen Please take all medications as instructed on discharge list below. Please call if you have any questions or problems. You can reach a [facility] hospitalist on duty at [facility] 24 hours a day by calling [phone] Pending Studies at Discharge: No Stand-Alone Forms: [facility], Smoking Cessation Medications and DC Order Prescriptions: Continued aspirin [Adult Low Dose Aspirin] 81 mg tablet,delayed release (DR/EC) 81 mg PO QAM RF: 0 duloxetine 60 mg capsule,delayed release(DR/EC) 60 mg PO QAM RF: 0 cholecalciferol (vitamin D3) 2,000 unit capsule 2,000 units PO QAM RF: 0 oxybutynin chloride [Ditropan XL] 10 mg tablet extended release 24hr 10 mg PO DAILY RF: 0 digoxin 125 mcg Tablet 0.125 mg PO QPM Qty: 0 RF: 0 levothyroxine 200 mcg tablet 200 mcg PO QAM Qty: 0 RF: 0 colchicine 0.6 mg capsule 0.6 mg PO Q OTHER DAY Qty: 0 RF: 0 allopurinol 300 mg tablet 300 mg PO QAM RF: 0 omeprazole 20 mg capsule,delayed release(DR/EC) 20 mg PO QAM RF: 0 atorvastatin 20 mg tablet 10 mg PO HS RF: 0 gabapentin 300 mg capsule 300 mg PO TID RF: 0 meclizine 12.5 mg tablet 12.5 mg PO TID PRN (Reason: headaches) RF: 0 albuterol sulfate 90 mcg/actuation HFA aerosol inhaler 2 puffs INH QID PRN (Reason: Shortness Of Breath Or Wheezing) RF: 0 levothyroxine 50 mcg tablet 50 mcg PO QAM RF: 0 tramadol 50 mg Tablet 50 mg PO BID PRN (Reason: Pain, Severe) RF: 0 metoprolol succinate 100 mg tablet extended release 24 hr 150 mg PO BID RF: 0 [facility] 250-2.5-0.5 mg Capsule 1 cap PO BID RF: 0 insulin regular hum U-500 conc 500 unit/mL Solution 0 unit continuous subcutaneous infusion CONTINOUS RF: 0 bupropion HCl 150 mg tablet extended release 24 hr 150 mg PO QAM RF: 0 potassium chloride [Klor-Con M20] 20 mEq tablet,ER particles/crystals 20 meq PO DAILY RF: 0 nitroglycerin 0.4 mg tablet, sublingual 0.4 mg sublingual UD PRN (Reason: Chest Pain) RF: 0 multivitamin with minerals [Multiple Vitamin-Minerals] Tablet 1 tab PO DAILY RF: 0 sennosides-docusate sodium [Senna with Docusate Sodium] 8.6-50 mg Tablet 1 tab-cap PO BID PRN (Reason: Constipation) RF: 0 nystatin 100,000 unit/gram Powder 1 applic TOPICAL BID RF: 0 Trulicity 1.5 mg/0.5 mL Pen Injector 1.5 mg SUBCUT WK RF: 0 warfarin 4 mg tablet 8 mg PO [id number] RF: 0 warfarin 4 mg tablet 4 mg PO SUTH Qty: 60 RF: 0 metolazone 2.5 mg Tablet 2.5 mg PO DAILY PRN (Reason: WT GAIN 3#/24 HRS OR 5#/48 HRS.) RF: 0 magnesium oxide 400 mg magnesium Tablet 400 mg PO DAILY RF: 0 spironolactone [Aldactone] 25 mg tablet 25 mg PO DAILY RF: 0 furosemide 80 mg tablet 80 mg PO BID RF: 0 Discharge Orders: Discharge Order (Routine); Ordered 03/06/21 Ordered By: Dae Torres/Other Patient Handouts: A1C, Hypoglycemia (Low Blood Sugar), Managing Type 2 Diabetes Admission Data Admit Date/Time: 03/05/21 22:15 Attending Provider: Dae Leone Admit Provider: Enrike Lanier Primary Care Provider: Pura Willingham Other Providers: Enrike Lanier ; [facility] ; [facility] Other Interventions: Discharge Summary Assessment (RN) Last Done: 03/06/21 16:27
[2021-03-06] MEDS: DIGOXIN 0.125 MG TAB PO SCH (16:12)
[2021-03-06] MEDS: WARFARIN SOD 4 MG TAB PO SCH (16:15)
[2021-03-07] MEDS ORDERED: WARFARIN SOD 4 MG TAB PO SCH (16:00)
== END 2021-03-06 17:16 | disposition home health service (06) | DRG 638 ==
LOC: ED 14:19 → 2N 14:19 → SUATTDRO 03-05 22:15

== ENCOUNTER 2021-07-11 19:25 | Inpatient (IN) ==
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
[2021-07-11 21:12] LABS: iSTAT Creatinine 1.5 mg/dl (0.6-1.3); iSTAT Ionized Calcium 1.28 mmol/l (1.12-1.32); iSTAT Potassium 3.7 mmol/L (3.3-5.0)
[2021-07-11] MEDS ORDERED: OPTIRAY 320 125ml IV ONE (21:27)
[2021-07-11] MEDS ORDERED: ACETAMINOPHEN 500 MG TAB PO STA (22:05)
[2021-07-11] MEDS ORDERED: MoRPHine SULFATE 2 MG/ML CARP IV STA (23:34)
[2021-07-11 23:49] LABS: Basophils # (auto) 0.04 K/uL (0-0.2); Basophils % (auto) 0.4 %; Eosinophils # (auto) 0.16 K/uL (0-0.5); Eosinophils % (auto) 1.6 %; Hematocrit (blood only) 41.7 % (42-52); Hemoglobin 13.7 g/dL (14.0-18.0); Immature Granulocytes # (auto) 0.04 K/uL (0.00-0.02); Immature Granulocytes % (auto) 0.4 %; Lymphocytes # (auto) 1.47 K/uL (1.2-3.4); Lymphocytes % (auto) 14.7 %; Mean Corpuscular Hgb Conc 32.9 g/dL (32-36); Mean Corpuscular Volume 94.3 fL (80-100); Mean Platelet Volume 10.9 fL (7.4-10.4); Monocytes # (auto) 0.81 K/uL (0.11-0.59); Monocytes % (auto) 8.1 %; Neutrophils # (auto) 7.48 K/uL (1.4-6.5); Neutrophils % (auto) 74.8 %; Platelet Count 171 K/uL (130-400); RDW Coefficient of Variation 13.8 % (11.5-14.5); RDW Standard Deviation 47.4 fL (36.4-46.3); Red Blood Count 4.42 M/uL (4.7-6.1)
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
[2021-07-12 00:07] LABS: Alanine Aminotransferase 31 (12-78); Albumin Level 3.4 gm/dl (3.4-5.0); Aspartate Aminotransferase 32 U/L (15-37); BUN Creatinine Ratio 17.2 (10-20); Blood Urea Nitrogen 26 mg/dl (7-18); Calcium 9.7 mg/dl (8.5-10.1); Carbon Dioxide 30 mmol/L (21-32); Chloride 96 mmol/L (98-107); Creatinine Clr Calc Pharmacy 64.5 ml/min; Est GFR (African American) 53.8 ml/min; Est GFR (Non-African American) 46.5 ml/min; Glucose 151 mg/dl (70-99); Potassium 3.5 mmol/L (3.5-5.1); Sodium 133 mmol/L (136-145)
[2021-07-12 00:11] LABS: Albumin Globulin Ratio 0.8 (0.9-2); Alkaline Phosphatase 114 U/L (45-117); Bilirubin,Total 1.6 mg/dl (0.2-1); Globulin 4.2 gm/dl (2.5-4.0); Total Protein 7.6 gm/dl (6.4-8.2); Troponin I < 0.015 ng/ml (0-0.045)
[2021-07-12] MEDS ORDERED: D5W AND NSS 1,000 ML IV SCH (02:03)
[2021-07-12] MEDS ORDERED: MECLIZINE 12.5 MG TAB PO PRN (03:15)
[2021-07-12] MEDS ORDERED: PHARMACY GLYCEMIC MGMT CONSULT PRN (03:15)
[2021-07-12] MEDS ORDERED: ALBUTEROL HFA 8 GM INHALER INH PRN (03:15)
[2021-07-12] MEDS ORDERED: NITROGLYCERIN SL 0.4 MG/TAB TAB SL PRN ×2 (03:15)
[2021-07-12] MEDS ORDERED: metOLazone 2.5 MG TABLET PO PRN (03:15)
[2021-07-12] MEDS ORDERED: INSULIN REGULAR continuous subcutaneous infusion SCH ×2 (03:15)
[2021-07-12] MEDS: HYDROmorphone INJ 0.5 MG/0.5 ML SYR IV PRN ×3 (03:38→23:31)
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
[2021-07-12] MEDS: INSULIN ASPART PER UNIT SC SCH ×6 (05:51→20:34)
[2021-07-12] MEDS: LEVOTHYROXINE SODIUM 200 MCG TABLET PO SCH (05:52)
[2021-07-12] MEDS: LEVOTHYROXINE SODIUM 50 MCG TABLET PO SCH (05:53)
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
[2021-07-12] MEDS: oxyCODONE HCL IR 5 MG TAB (IMMEDIATE RELEASE) PO PRN ×2 (07:42→18:17)
[2021-07-12 07:49] LABS: Basophils # (auto) 0.03 K/uL (0-0.2); Basophils % (auto) 0.4 %; Eosinophils # (auto) 0.16 K/uL (0-0.5); Eosinophils % (auto) 2.2 %; Hematocrit (blood only) 43.5 % (42-52); Hemoglobin 14.1 g/dL (14.0-18.0); Immature Granulocytes # (auto) 0.05 K/uL (0.00-0.02); Immature Granulocytes % (auto) 0.7 %; Lymphocytes # (auto) 1.25 K/uL (1.2-3.4); Lymphocytes % (auto) 17.1 %; Mean Corpuscular Hemoglobin 30.8 pg (25-34); Mean Corpuscular Hgb Conc 32.4 g/dL (32-36); Mean Platelet Volume 10.8 fL (7.4-10.4); Monocytes # (auto) 0.79 K/uL (0.11-0.59); Monocytes % (auto) 10.8 %; Neutrophils # (auto) 5.01 K/uL (1.4-6.5); Neutrophils % (auto) 68.8 %; Platelet Count 150 K/uL (130-400); RDW Coefficient of Variation 14.1 % (11.5-14.5); Red Blood Count 4.58 M/uL (4.7-6.1); White Blood Count 7.29 K/uL (4.8-10.8)
[2021-07-12] MEDS ORDERED: GLUCOSE 10 TABS/TUBE PO PRN (08:00)
[2021-07-12] MEDS ORDERED: DEXTROSE 50% 50 ML SYRINGE IV PRN (08:00)
[2021-07-12] MEDS ORDERED: CARBOHYDRATES FOR HYPOGLYCEMIA PO PRN (08:00)
[2021-07-12] MEDS ORDERED: GLUCOSE 40% GEL 15 GM TUBE PO PRN (08:00)
[2021-07-12] MEDS ORDERED: GLUCAGON FOR INJ 1 MG VIAL IM PRN (08:00)
[2021-07-12 08:07] LABS: BUN Creatinine Ratio 16.9 (10-20); Calcium 10.1 mg/dl (8.5-10.1); Creatinine Clr Calc Pharmacy 66.3 ml/min; Est GFR (African American) 55.6 ml/min; Magnesium 2.3 mg/dl (1.8-2.4); Potassium 3.6 mmol/L (3.5-5.1)
[2021-07-12 08:34] LABS: Estimated Average Glucose 226 mg/dl; Hemoglobin A1C 9.5 % (4.5-5.6)
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
[2021-07-12] MEDS ORDERED: [UNRECOGNIZED DRUG - OTHER] PO SCH (09:00)
[2021-07-12] MEDS ORDERED: CALCIPOTRIENE 0.005% TOP SCH (09:00)
[2021-07-12] MEDS: buPROPion XL 150 MG TABCR PO SCH (09:02)
[2021-07-12] MEDS: SPIRONOLACTONE 25 MG TAB PO SCH (09:03)
[2021-07-12] MEDS: CEROVITE ADV FORMULA TAB PO SCH (09:03)
[2021-07-12] MEDS: allopurinoL 300 MG TAB PO SCH (09:03)
[2021-07-12] MEDS: OXYBUTYNIN CHLORIDE XL 5 MG TABCR PO SCH (09:03)
[2021-07-12] MEDS: PANTOprazole 40 MG TAB PO SCH (09:03)
[2021-07-12] MEDS: ASPIRIN 81 MG ECTAB PO SCH (09:03)
[2021-07-12] MEDS: POTASSIUM CHLORIDE CRTAB 20 MEQ TABCR PO SCH (09:03)
[2021-07-12] MEDS: MAGNESIUM OXIDE 400 MG TAB PO SCH (09:03)
[2021-07-12] MEDS: CHOLECALCIFEROL 1,000 UNITS 25 MCG TAB PO SCH (09:03)
[2021-07-12] MEDS: DULoxetine HCL 60 MG CAP PO SCH (09:03)
[2021-07-12] MEDS: FUROSEMIDE 80 MG TAB PO SCH ×2 (09:03→17:33)
[2021-07-12] MEDS: METOPROLOL SUCC 50MG EXT REL TAB PO SCH ×2 (09:04→20:29)
[2021-07-12] MEDS: NYSTATIN POWDER 15GM BTL EXT SCH ×2 (09:04→20:26)
[2021-07-12] MEDS: APIXABAN 5 MG TABLET PO SCH (09:04)
[2021-07-12] MEDS: PREGABALIN 75 MG CAP PO SCH ×2 (09:07→20:41)
[2021-07-12] MEDS: traMADol HCL 50 MG TABLET PO PRN (13:24)
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
[2021-07-12] MEDS ORDERED: HUMULIN R U SC ONE (18:00)
[2021-07-12] MEDS: ACETAMINOPHEN 325 MG TAB PO PRN (18:16)
[2021-07-12] MEDS: ERYTHROMYCIN OP OINT 5 MG/GM 3.5 GM TUBE OP SCH (20:28)
[2021-07-12] MEDS: ATORVASTATIN 10 MG TAB PO SCH (20:28)
[2021-07-12] MEDS: DIGOXIN 0.125 MG TAB PO SCH (20:28)
[2021-07-13] MEDS ORDERED: INSULIN ASPART PER UNIT SC SCH (02:00)
[2021-07-13] MEDS: traMADol HCL 50 MG TABLET PO PRN (02:36)
[2021-07-13] MEDS: LEVOTHYROXINE SODIUM 50 MCG TABLET PO SCH (06:07)
[2021-07-13] MEDS: LEVOTHYROXINE SODIUM 200 MCG TABLET PO SCH (06:07)
[2021-07-13 06:57] LABS: Hematocrit (blood only) 42.7 % (42-52); Hemoglobin 13.5 g/dL (14.0-18.0); Mean Corpuscular Hemoglobin 30.7 pg (25-34); Mean Corpuscular Hgb Conc 31.6 g/dL (32-36); Platelet Count 181 K/uL (130-400); RDW Coefficient of Variation 14.1 % (11.5-14.5); White Blood Count 7.13 K/uL (4.8-10.8)
[2021-07-13] MEDS: HYDROmorphone INJ 0.5 MG/0.5 ML SYR IV PRN ×3 (07:13→23:38)
[2021-07-13 07:27] LABS: BUN Creatinine Ratio 16.3 (10-20); Creatinine Clr Calc Pharmacy 48.9 ml/min; Est GFR (African American) 39.8 ml/min; Est GFR (Non-African American) 34.3 ml/min; Potassium 3.9 mmol/L (3.5-5.1)
[2021-07-13] MEDS ORDERED: SODIUM CHLORIDE 0.9% 1000ML 1,000 ML IV SCH (07:45)
[2021-07-13] MEDS: DULoxetine HCL 60 MG CAP PO SCH (08:31)
[2021-07-13] MEDS: METOPROLOL SUCC 50MG EXT REL TAB PO SCH ×2 (08:31→21:07)
[2021-07-13] MEDS: buPROPion XL 150 MG TABCR PO SCH (08:31)
[2021-07-13] MEDS: CEROVITE ADV FORMULA TAB PO SCH (08:31)
[2021-07-13] MEDS: POTASSIUM CHLORIDE CRTAB 20 MEQ TABCR PO SCH (08:31)
[2021-07-13] MEDS: ASPIRIN 81 MG ECTAB PO SCH (08:31)
[2021-07-13] MEDS: PANTOprazole 40 MG TAB PO SCH (08:32)
[2021-07-13] MEDS: MAGNESIUM OXIDE 400 MG TAB PO SCH (08:32)
[2021-07-13] MEDS: allopurinoL 300 MG TAB PO SCH (08:32)
[2021-07-13] MEDS: CHOLECALCIFEROL 1,000 UNITS 25 MCG TAB PO SCH (08:32)
[2021-07-13] MEDS: COLCHICINE 0.6 MG TAB PO SCH (08:32)
[2021-07-13] MEDS: OXYBUTYNIN CHLORIDE XL 5 MG TABCR PO SCH (08:32)
[2021-07-13] MEDS: FUROSEMIDE 80 MG TAB PO SCH ×2 (08:33→17:19)
[2021-07-13] MEDS: NYSTATIN POWDER 15GM BTL EXT SCH ×2 (08:33→21:08)
[2021-07-13] MEDS: PREGABALIN 75 MG CAP PO SCH ×2 (08:36→21:09)
[2021-07-13] MEDS ORDERED: PROMETHAZINE HCL 25 MG TAB PO PRN (08:45)
[2021-07-13] MEDS: INSULIN ASPART PER UNIT SC SCH ×4 (08:45→21:07)
[2021-07-13] MEDS: LIDOCAINE 5% 1 PATCH TD SCH (10:31)
[2021-07-13] MEDS: oxyCODONE HCL IR 5 MG TAB (IMMEDIATE RELEASE) PO PRN ×2 (10:59→21:04)
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
[2021-07-13] MEDS ORDERED: HUMULIN R U SC SCH (16:30)
[2021-07-13] MEDS ORDERED: MICONAZOLE NITRATE POWDER 43 GM EXT PRN (16:57)
[2021-07-13] MEDS ORDERED: Nursing to Pharmacy Communication SCH (17:30)
--- NOTE | 2021-07-13 19:28 | Electrocardiogram Report ---
Test Reason : Blood Pressure : / mmHG Vent. Rate : 093 BPM Atrial Rate : 096 BPM P-R Int : 000 ms QRS Dur : 166 ms QT Int : 432 ms P-R-T Axes : 000 -47 036 degrees QTc Int : 537 ms Atrial fibrillation with occasional ventricular-paced complexes Right bundle branch block Left anterior fascicular block Bifascicular block Abnormal ECG When compared with ECG of 03-MAY-2021 16:29, Atrial fibrillation now present Electronic ventricular pacemaker has replaced Electronic atrial pacemaker Confirmed by Arley Newman ([id number]) on 07/13/2021 7:28:48 PM Referred By: REFERRED SELF Confirmed By:Arley Newman
[2021-07-13] MEDS: DIGOXIN 0.125 MG TAB PO SCH (21:05)
[2021-07-13] MEDS: ATORVASTATIN 10 MG TAB PO SCH (21:05)
[2021-07-13] MEDS: APIXABAN 5 MG TABLET PO SCH (21:05)
[2021-07-13] MEDS: ERYTHROMYCIN OP OINT 5 MG/GM 3.5 GM TUBE OP SCH (21:06)
[2021-07-14] MEDS: LEVOTHYROXINE SODIUM 200 MCG TABLET PO SCH (05:46)
[2021-07-14] MEDS: LEVOTHYROXINE SODIUM 50 MCG TABLET PO SCH (05:46)
[2021-07-14] MEDS: APIXABAN 5 MG TABLET PO SCH ×2 (08:11→20:19)
[2021-07-14] MEDS: allopurinoL 300 MG TAB PO SCH (08:11)
[2021-07-14] MEDS: CEROVITE ADV FORMULA TAB PO SCH (08:12)
[2021-07-14] MEDS: ASPIRIN 81 MG ECTAB PO SCH (08:12)
[2021-07-14] MEDS: DULoxetine HCL 60 MG CAP PO SCH (08:13)
[2021-07-14] MEDS: OXYBUTYNIN CHLORIDE XL 5 MG TABCR PO SCH (08:13)
[2021-07-14] MEDS: CHOLECALCIFEROL 1,000 UNITS 25 MCG TAB PO SCH (08:13)
[2021-07-14] MEDS: PANTOprazole 40 MG TAB PO SCH (08:13)
[2021-07-14] MEDS: buPROPion XL 150 MG TABCR PO SCH (08:13)
[2021-07-14] MEDS: LIDOCAINE 5% 1 PATCH TD SCH (08:14)
[2021-07-14] MEDS: MAGNESIUM OXIDE 400 MG TAB PO SCH (08:14)
[2021-07-14] MEDS: NYSTATIN POWDER 15GM BTL EXT SCH ×2 (08:19→20:23)
[2021-07-14] MEDS: INSULIN ASPART PER UNIT SC SCH ×4 (08:30→20:22)
[2021-07-14] MEDS: ACETAMINOPHEN 325 MG TAB PO PRN ×3 (08:31→20:18)
[2021-07-14] MEDS: POTASSIUM CHLORIDE CRTAB 20 MEQ TABCR PO SCH (08:32)
[2021-07-14] MEDS: POLYETHYLENE (MIRALAX) 17 GM PACK PO PRN (08:32)
[2021-07-14] MEDS: PREGABALIN 75 MG CAP PO SCH ×2 (08:32→20:25)
[2021-07-14] MEDS: DOCUSATE SODIUM/SENNA 50/8.6MG TAB PO PRN (08:32)
[2021-07-14] MEDS: METOPROLOL SUCC 50MG EXT REL TAB PO SCH ×2 (08:52→20:22)
[2021-07-14 09:57] LABS: Hematocrit (blood only) 42.2 % (42-52); Hemoglobin 13.5 g/dL (14.0-18.0); Mean Corpuscular Hemoglobin 30.9 pg (25-34); Mean Corpuscular Volume 96.6 fL (80-100); Mean Platelet Volume 11.1 fL (7.4-10.4); Platelet Count 176 K/uL (130-400); RDW Standard Deviation 49.2 fL (36.4-46.3); Red Blood Count 4.37 M/uL (4.7-6.1); White Blood Count 6.91 K/uL (4.8-10.8)
[2021-07-14] MEDS: oxyCODONE HCL IR 5 MG TAB (IMMEDIATE RELEASE) PO PRN (10:15)
[2021-07-14 10:30] LABS: BUN Creatinine Ratio 18.8 (10-20); Calcium 9.5 mg/dl (8.5-10.1); Creatinine Clr Calc Pharmacy 48.5 ml/min; Est GFR (African American) 38.3 ml/min; Est GFR (Non-African American) 33.1 ml/min; Potassium 3.9 mmol/L (3.5-5.1)
[2021-07-14] MEDS: FUROSEMIDE 80 MG TAB PO SCH ×2 (11:01→17:38)
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
[2021-07-14] MEDS ORDERED: HumuLIN-R U-500 35 UNITS in SYRINGE 0 ML SC SCH (20:00)
[2021-07-14] MEDS: DIGOXIN 0.125 MG TAB PO SCH (20:20)
[2021-07-14] MEDS: ATORVASTATIN 10 MG TAB PO SCH (20:20)
[2021-07-14] MEDS: ERYTHROMYCIN OP OINT 5 MG/GM 3.5 GM TUBE OP SCH (20:21)
[2021-07-15] MEDS: ACETAMINOPHEN 325 MG TAB PO PRN (05:04)
[2021-07-15] MEDS: LEVOTHYROXINE SODIUM 50 MCG TABLET PO SCH (05:40)
[2021-07-15] MEDS: LEVOTHYROXINE SODIUM 200 MCG TABLET PO SCH (05:40)
[2021-07-15 06:21] LABS: Hematocrit (blood only) 42.9 % (42-52); Hemoglobin 13.7 g/dL (14.0-18.0)
[2021-07-15 07:03] LABS: BUN Creatinine Ratio 19.8 (10-20); Calcium 9.9 mg/dl (8.5-10.1); Creatinine Clr Calc Pharmacy 54.1 ml/min; Est GFR (African American) 43.8 ml/min; Est GFR (Non-African American) 37.8 ml/min; Potassium 3.4 mmol/L (3.5-5.1)
[2021-07-15] MEDS: APIXABAN 5 MG TABLET PO SCH ×2 (07:47→21:13)
[2021-07-15] MEDS: MAGNESIUM OXIDE 400 MG TAB PO SCH (07:47)
[2021-07-15] MEDS: METOPROLOL SUCC 50MG EXT REL TAB PO SCH ×2 (07:47→21:14)
[2021-07-15] MEDS: OXYBUTYNIN CHLORIDE XL 5 MG TABCR PO SCH (07:47)
[2021-07-15] MEDS: DULoxetine HCL 60 MG CAP PO SCH (07:47)
[2021-07-15] MEDS: FUROSEMIDE 80 MG TAB PO SCH ×2 (07:48→17:46)
[2021-07-15] MEDS: buPROPion XL 150 MG TABCR PO SCH (07:48)
[2021-07-15] MEDS: CHOLECALCIFEROL 1,000 UNITS 25 MCG TAB PO SCH (07:48)
[2021-07-15] MEDS: CEROVITE ADV FORMULA TAB PO SCH (07:48)
[2021-07-15] MEDS: PANTOprazole 40 MG TAB PO SCH (07:48)
[2021-07-15] MEDS: allopurinoL 300 MG TAB PO SCH (07:48)
[2021-07-15] MEDS: COLCHICINE 0.6 MG TAB PO SCH (07:48)
[2021-07-15] MEDS: ASPIRIN 81 MG ECTAB PO SCH (07:48)
[2021-07-15] MEDS: LIDOCAINE 5% 1 PATCH TD SCH (07:49)
[2021-07-15] MEDS: NYSTATIN POWDER 15GM BTL EXT SCH ×2 (07:50→21:15)
[2021-07-15] MEDS: PREGABALIN 75 MG CAP PO SCH ×2 (07:54→21:18)
[2021-07-15] MEDS: POTASSIUM CHLORIDE CRTAB 20 MEQ TABCR PO SCH (07:54)
[2021-07-15] MEDS: INSULIN ASPART PER UNIT SC SCH ×4 (08:04→21:12)
[2021-07-15] MEDS ORDERED: POTASSIUM CHLORIDE CRTAB 20 MEQ TABCR PO STA (08:58)
[2021-07-15] MEDS: SPIRONOLACTONE 25 MG TAB PO SCH (10:49)
[2021-07-15] MEDS: POLYETHYLENE (MIRALAX) 17 GM PACK PO PRN (10:54)
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
[2021-07-15] MEDS: oxyCODONE HCL IR 5 MG TAB (IMMEDIATE RELEASE) PO PRN (17:55)
[2021-07-15] MEDS: HUMULIN R U SC SCH (21:11)
[2021-07-15] MEDS: DIGOXIN 0.125 MG TAB PO SCH (21:13)
[2021-07-15] MEDS: ATORVASTATIN 10 MG TAB PO SCH (21:13)
[2021-07-15] MEDS: ERYTHROMYCIN OP OINT 5 MG/GM 3.5 GM TUBE OP SCH (21:14)
[2021-07-16 06:09] LABS: Hematocrit (blood only) 42.2 % (42-52); Hemoglobin 13.6 g/dL (14.0-18.0)
[2021-07-16] MEDS: LEVOTHYROXINE SODIUM 50 MCG TABLET PO SCH (06:12)
[2021-07-16] MEDS: LEVOTHYROXINE SODIUM 200 MCG TABLET PO SCH (06:12)
[2021-07-16 06:39] LABS: BUN Creatinine Ratio 21.1 (10-20); Calcium 9.9 mg/dl (8.5-10.1); Creatinine Clr Calc Pharmacy 51.9 ml/min; Est GFR (African American) 41.8 ml/min; Est GFR (Non-African American) 36.1 ml/min; Potassium 3.4 mmol/L (3.5-5.1)
[2021-07-16] MEDS: allopurinoL 300 MG TAB PO SCH (07:47)
[2021-07-16] MEDS: MAGNESIUM OXIDE 400 MG TAB PO SCH (07:47)
[2021-07-16] MEDS: APIXABAN 5 MG TABLET PO SCH ×2 (07:47→21:19)
[2021-07-16] MEDS: METOPROLOL SUCC 50MG EXT REL TAB PO SCH ×2 (07:47→21:19)
[2021-07-16] MEDS: DULoxetine HCL 60 MG CAP PO SCH (07:48)
[2021-07-16] MEDS: SPIRONOLACTONE 25 MG TAB PO SCH (07:48)
[2021-07-16] MEDS: CEROVITE ADV FORMULA TAB PO SCH (07:48)
[2021-07-16] MEDS: buPROPion XL 150 MG TABCR PO SCH (07:48)
[2021-07-16] MEDS: ASPIRIN 81 MG ECTAB PO SCH (07:48)
[2021-07-16] MEDS: PANTOprazole 40 MG TAB PO SCH (07:48)
[2021-07-16] MEDS: CHOLECALCIFEROL 1,000 UNITS 25 MCG TAB PO SCH (07:48)
[2021-07-16] MEDS: OXYBUTYNIN CHLORIDE XL 5 MG TABCR PO SCH (07:48)
[2021-07-16] MEDS: FUROSEMIDE 80 MG TAB PO SCH ×2 (07:49→18:06)
[2021-07-16] MEDS: LIDOCAINE 5% 1 PATCH TD SCH (07:49)
[2021-07-16] MEDS: NYSTATIN POWDER 15GM BTL EXT SCH ×2 (07:50→21:18)
[2021-07-16] MEDS: oxyCODONE HCL IR 5 MG TAB (IMMEDIATE RELEASE) PO PRN ×2 (07:53→15:56)
[2021-07-16] MEDS: POTASSIUM CHLORIDE CRTAB 20 MEQ TABCR PO SCH (07:53)
[2021-07-16] MEDS: DOCUSATE SODIUM/SENNA 50/8.6MG TAB PO PRN (07:54)
[2021-07-16] MEDS: PREGABALIN 75 MG CAP PO SCH ×2 (07:54→21:19)
[2021-07-16] MEDS: INSULIN ASPART PER UNIT SC SCH ×4 (08:04→21:19)
[2021-07-16] MEDS ORDERED: POTASSIUM CHLORIDE CRTAB 20 MEQ TABCR PO STA (08:16)
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
[2021-07-16] MEDS: POLYETHYLENE (MIRALAX) 17 GM PACK PO PRN (18:05)
[2021-07-16] MEDS: HUMULIN R U SC SCH (21:18)
[2021-07-16] MEDS: DIGOXIN 0.125 MG TAB PO SCH (21:19)
[2021-07-16] MEDS: ATORVASTATIN 10 MG TAB PO SCH (21:19)
[2021-07-16] MEDS: ERYTHROMYCIN OP OINT 5 MG/GM 3.5 GM TUBE OP SCH (21:19)
[2021-07-17] MEDS: oxyCODONE HCL IR 5 MG TAB (IMMEDIATE RELEASE) PO PRN (04:04)
[2021-07-17] MEDS: LEVOTHYROXINE SODIUM 200 MCG TABLET PO SCH (06:13)
[2021-07-17] MEDS: LEVOTHYROXINE SODIUM 50 MCG TABLET PO SCH (06:13)
[2021-07-17 07:14] LABS: BUN Creatinine Ratio 24.8 (10-20); Calcium 9.8 mg/dl (8.5-10.1); Creatinine Clr Calc Pharmacy 58.5 ml/min; Est GFR (African American) 48.4 ml/min; Est GFR (Non-African American) 41.7 ml/min; Potassium 3.9 mmol/L (3.5-5.1)
[2021-07-17] MEDS: CHOLECALCIFEROL 1,000 UNITS 25 MCG TAB PO SCH (08:11)
[2021-07-17] MEDS: allopurinoL 300 MG TAB PO SCH (08:12)
[2021-07-17] MEDS: MAGNESIUM OXIDE 400 MG TAB PO SCH (08:12)
[2021-07-17] MEDS: SPIRONOLACTONE 25 MG TAB PO SCH (08:12)
[2021-07-17] MEDS: APIXABAN 5 MG TABLET PO SCH ×2 (08:12→20:41)
[2021-07-17] MEDS: FUROSEMIDE 80 MG TAB PO SCH ×2 (08:12→17:34)
[2021-07-17] MEDS: buPROPion XL 150 MG TABCR PO SCH (08:12)
[2021-07-17] MEDS: POTASSIUM CHLORIDE CRTAB 20 MEQ TABCR PO SCH (08:13)
[2021-07-17] MEDS: PANTOprazole 40 MG TAB PO SCH (08:13)
[2021-07-17] MEDS: OXYBUTYNIN CHLORIDE XL 5 MG TABCR PO SCH (08:13)
[2021-07-17] MEDS: COLCHICINE 0.6 MG TAB PO SCH (08:13)
[2021-07-17] MEDS: CEROVITE ADV FORMULA TAB PO SCH (08:13)
[2021-07-17] MEDS: ASPIRIN 81 MG ECTAB PO SCH (08:13)
[2021-07-17] MEDS: NYSTATIN POWDER 15GM BTL EXT SCH ×2 (08:14→20:52)
[2021-07-17] MEDS: METOPROLOL SUCC 50MG EXT REL TAB PO SCH ×2 (08:14→20:43)
[2021-07-17] MEDS: DULoxetine HCL 60 MG CAP PO SCH (08:14)
[2021-07-17] MEDS: INSULIN ASPART PER UNIT SC SCH ×4 (08:19→21:25)
[2021-07-17] MEDS: LIDOCAINE 5% 1 PATCH TD SCH (08:21)
[2021-07-17] MEDS: PREGABALIN 75 MG CAP PO SCH ×2 (08:21→20:47)
[2021-07-17] MEDS ORDERED: HYDROCODONE/ACETAMOPHEN 5/325MG TAB PO PRN (10:51)
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
[2021-07-17] MEDS: ACETAMINOPHEN 500 MG TAB PO SCH ×2 (13:56→20:41)
[2021-07-17] MEDS: ATORVASTATIN 10 MG TAB PO SCH (20:42)
[2021-07-17] MEDS: DIGOXIN 0.125 MG TAB PO SCH (20:42)
[2021-07-17] MEDS: HUMULIN R U SC SCH (20:44)
[2021-07-17] MEDS: ERYTHROMYCIN OP OINT 5 MG/GM 3.5 GM TUBE OP SCH (20:45)
[2021-07-18 03:21] VITALS: PULSE 66; TEMP 97.5
[2021-07-18] MEDS: LEVOTHYROXINE SODIUM 200 MCG TABLET PO SCH (05:54)
[2021-07-18] MEDS: LEVOTHYROXINE SODIUM 50 MCG TABLET PO SCH (05:54)
[2021-07-18] MEDS: DULoxetine HCL 60 MG CAP PO SCH (08:20)
[2021-07-18] MEDS: METOPROLOL SUCC 50MG EXT REL TAB PO SCH (08:20)
[2021-07-18] MEDS: allopurinoL 300 MG TAB PO SCH (08:20)
[2021-07-18] MEDS: CHOLECALCIFEROL 1,000 UNITS 25 MCG TAB PO SCH (08:21)
[2021-07-18] MEDS: FUROSEMIDE 80 MG TAB PO SCH (08:21)
[2021-07-18] MEDS: ASPIRIN 81 MG ECTAB PO SCH (08:21)
[2021-07-18] MEDS: buPROPion XL 150 MG TABCR PO SCH (08:21)
[2021-07-18] MEDS: PANTOprazole 40 MG TAB PO SCH (08:21)
[2021-07-18] MEDS: ACETAMINOPHEN 500 MG TAB PO SCH (08:21)
[2021-07-18] MEDS: CEROVITE ADV FORMULA TAB PO SCH (08:21)
[2021-07-18] MEDS: APIXABAN 5 MG TABLET PO SCH (08:21)
[2021-07-18] MEDS: POTASSIUM CHLORIDE CRTAB 20 MEQ TABCR PO SCH (08:22)
[2021-07-18] MEDS: SPIRONOLACTONE 25 MG TAB PO SCH (08:22)
[2021-07-18] MEDS: MAGNESIUM OXIDE 400 MG TAB PO SCH (08:22)
[2021-07-18] MEDS: LIDOCAINE 5% 1 PATCH TD SCH (08:23)
[2021-07-18] MEDS: NYSTATIN POWDER 15GM BTL EXT SCH (08:23)
[2021-07-18] MEDS: PREGABALIN 75 MG CAP PO SCH (08:25)
[2021-07-18] MEDS: INSULIN ASPART PER UNIT SC SCH ×2 (08:36→12:20)
[2021-07-18 10:40] VITALS: BP 104/69; O2SAT 94
[2021-07-18] MEDS ORDERED: TRIMETHOPRIM/POLYMYXIN B OPB SCH (12:00)
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
[2021-07-18] MEDS ORDERED: HumuLIN-R U-500 35 UNITS in SYRINGE 0 ML SC SCH (20:00)
--- NOTE | 2021-08-15 10:07 | Coding Query ---
CODING QUERY To promote full compliance with coding requirements relating to patient care, provider participation is requested in all cases of window systems administrator uncertainty. Please assist us with the question(s) below: Please clarify the meaning of ALMA ROSA. ALMA ROSA is not a valid abbreviation. Thank you. ( x ) Acute Kidney Injury ( ) Acute Kidney Insufficiency ( ) Other (Specify): Principal Diagnosis: "that condition established after study, to be chiefly responsible for occasioning the admission of the patient to the hospital for care." Co-Existing Principal Diagnosis: "when two or more diagnoses equally meet the criteria for principal diagnosis as determined by the circumstances of admission, diagnostic work up, and/or therapy provided, and the Alphabetic Index, Tabular List, or another coding guideline does not provide sequencing direction, any one of the diagnoses may be sequenced first." "When the physician has documented what appears to be a current diagnosis in the body of the record, but has not included the diagnosis in the final diagnostic statement, the physician should be asked whether the diagnosis should be added." ([facility] 2 QTR90. p3-4) YANDY
== END 2021-07-18 13:01 | disposition home or self-care (01) | DRG 184 ==
LOC: ED 19:25 → SUATTDRO 07-12 01:56 → EDINP 07-12 01:56 → 2N 07-13 10:55

== ENCOUNTER 2021-07-27 16:16 | Inpatient (IN) ==
[2021-07-27] MEDS ORDERED: SODIUM CHLORIDE 0.9% 1000ML 1,000 ML IV SCH ×2 (16:30→19:45)
[2021-07-27 16:53] LABS: Basophils # (auto) 0.03 K/uL (0-0.2); Basophils % (auto) 0.4 %; Eosinophils # (auto) 0.11 K/uL (0-0.5); Eosinophils % (auto) 1.5 %; Hematocrit (blood only) 44.4 % (42-52); Hemoglobin 14.4 g/dL (14.0-18.0); Immature Granulocytes # (auto) 0.01 K/uL (0.00-0.02); Immature Granulocytes % (auto) 0.1 %; Lymphocytes # (auto) 1.21 K/uL (1.2-3.4); Mean Corpuscular Hemoglobin 31.2 pg (25-34); Mean Corpuscular Hgb Conc 32.4 g/dL (32-36); Mean Corpuscular Volume 96.1 fL (80-100); Mean Platelet Volume 12.3 fL (7.4-10.4); Monocytes # (auto) 0.64 K/uL (0.11-0.59); Neutrophils # (auto) 5.12 K/uL (1.4-6.5); Platelet Count 173 K/uL (130-400); RDW Standard Deviation 48.4 fL (36.4-46.3); Red Blood Count 4.62 M/uL (4.7-6.1); White Blood Count 7.12 K/uL (4.8-10.8)
[2021-07-27 16:58] LABS: Appearance Urine Turbid (Clear); Bilirubin Urine Negative (Negative); Blood Urine 2+ (Negative); Color Urine Yellow; Glucose Urine UA 3+ (Negative); Ketones Urine Negative (Negative); Leukocyte Esterase Urine 3+ (Negative); Nitrite Urine Positive (Negative); Protein Urine Trace (Negative); Specific Gravity Urine 1.024 (1.000-1.030); Urobilinogen Urine Negative (Negative); pH Urine 5.5 (4.5-7.5)
--- NOTE | 2021-07-27 17:02 | Emergency Department Note ---
History of Present Illness General Chief complaint: Hyperglycemia Stated complaint: hyperglycemia, fever, confusion Time Seen by Provider: 07/27/21 16:20 Source: EMS History of Present Illness Provider complaint: Hyperglycemia fever confusion 71-year-old male presents emergency department for hyperglycemia fever and confusion. Patient was brought in via EMS. Per EMS the patient is a resident at [facility]. He was called an ambulance by the staff because he was having high blood sugar and confusion. Patient was found to have a high temperature there also. Patient was found to be incontinent of urine. Patient is currently denying any pain. No reported falls. Home Medications Medication Instructions Recorded Confirmed Type digoxin 125 mcg (0.125 mg) tablet 0.125 mg PO QPM #0 07/13/16 07/27/21 History aspirin 81 mg tablet,delayed 81 mg PO QAM 05/11/18 07/27/21 History release (Adult Low Dose Aspirin) levothyroxine 50 mcg tablet 50 mcg PO QAM 06/24/18 07/27/21 History duloxetine 60 mg capsule,delayed 60 mg PO QAM 08/31/18 07/27/21 History release cholecalciferol (vitamin D3) 50 2,000 units PO QAM 05/13/19 07/27/21 History mcg (2,000 unit) capsule allopurinol 300 mg tablet 300 mg PO QAM 05/25/19 07/27/21 History levothyroxine 200 mcg tablet 200 mcg PO QAM #0 tab 05/25/19 07/27/21 History omeprazole 20 mg capsule,delayed 20 mg PO QAM 05/25/19 07/27/21 History release potassium chloride 20 mEq 20 meq PO BID 07/12/19 07/27/21 History tablet,extended release(part/cryst) (Klor-Con M) albuterol sulfate 90 mcg/actuation 2 puffs INH QID PRN gm 12/14/19 07/27/21 History aerosol inhaler atorvastatin 20 mg tablet 10 mg PO HS 12/14/19 07/27/21 History meclizine 12.5 mg tablet 12.5 mg PO TID PRN 12/14/19 07/27/21 History bupropion HCl 150 mg 24 hr tablet, 150 mg PO QAM 02/13/20 07/27/21 History extended release metoprolol succinate 100 mg 150 mg PO BID 02/13/20 07/27/21 History tablet,extended release 24 hr omega-3 250 rd-kby-ckq-lutein 2.5 1 cap PO BID 02/13/20 07/27/21 History mg-zeaxanthin 0.5 mg capsule ([facility]) colchicine 0.6 mg capsule 0.6 mg PO Q OTHER DAY #0 cap 03/02/20 07/27/21 History oxybutynin chloride 10 mg 10 mg PO DAILY 03/29/20 07/27/21 History tablet,extended release 24 hr (Ditropan XL) multivitamin with minerals 1 tab PO DAILY 06/19/20 07/11/21 History (Multiple Vitamin-Minerals) nitroglycerin 0.4 mg sublingual 0.4 mg SUBLINGUAL UD PRN 06/19/20 07/11/21 History tablet sennosides 8.6 mg-docusate sodium 1 tab-cap PO BID PRN 07/16/20 07/27/21 History 50 mg tablet (Senna with Docusate Sodium) furosemide 80 mg tablet 80 mg PO BID 11/01/20 07/27/21 History magnesium oxide 400 mg PO DAILY 11/01/20 07/27/21 History metolazone 2.5 mg tablet 2.5 mg PO DAILY PRN 11/01/20 07/27/21 History spironolactone 25 mg tablet 25 mg PO DAILY 11/01/20 07/27/21 History (Aldactone) nystatin 100,000 unit/gram topical 1 applic TOPICAL BID 03/04/21 07/11/21 History powder apixaban 5 mg tablet 5 mg PO BID 07/11/21 07/27/21 History calcipotriene 0.005 % topical cream 1 applic TOPICAL BID 07/11/21 07/11/21 History pregabalin 75 mg capsule 75 mg PO BID 07/11/21 07/11/21 History hydrocodone 5 mg-acetaminophen 325 1 tab PO Q6H PRN #10 tab 07/18/21 Rx mg tablet insulin aspart U-100 100 unit/mL 1 sliding scale dose SUBCUT 07/18/21 Rx (3 mL) subcutaneous pen USEASDIRECTD #30 ml insulin regular hum U-500 conc 35 unit SUBCUT PM 30 Days #6 ml 07/18/21 Rx insulin regular hum U-500 conc 80 unit SUBCUT QAM 30 Days #6 ml 07/18/21 Rx polymyxin B sulfate 10,000 1 drp OPB Q3H #10 ml 07/18/21 Rx unit-trimethoprim 1 mg/mL eye drops acetaminophen 500 mg tablet 1,000 mg PO Q6H PRN 07/27/21 07/27/21 History (Acetaminophen Extra Strength) gabapentin 300 mg capsule 300 mg PO TID 07/27/21 07/27/21 History tramadol 50 mg tablet 50 mg PO Q6H PRN 07/27/21 07/27/21 History warfarin 4 mg tablet 4 mg PO .UD 07/27/21 07/27/21 History Allergies Allergy/AdvReac Type Severity Reaction Status Date / Time No Known Allergies Allergy Verified 07/11/21 20:11 Past Med/Surg History Medical History Abnormal chest x-ray 06/18/20 right hilar opacity, f/u recommended Anticoagulant long-term use Arthritis Atrial fibrillation paroxysmal Atrial flutter Bifascicular block CAD (coronary artery disease) Cardiac pacemaker in situ Cardiomyopathy Chronic anticoagulation Chronic diastolic CHF (congestive heart failure) Chronic venous insufficiency CKD (chronic kidney disease) stage 3, GFR 30-59 ml/min Claustrophobia Closed fracture of thyroid cartilage COPD, moderate Depression Diabetes mellitus, type 2 insulin pump Fatty liver Gout Hyperlipidemia Hypertension Hypothyroidism Iatrogenic pulmonary embolism Interstitial lung disease Morbid obesity MRSA infection Nephrolithiasis Nocturnal hypoxemia SALAS (obstructive sleep apnea) Osteoarthritis Paroxysmal atrial fibrillation Prolonged QT interval Pulmonary embolism B/L- 5+ years ago Sarcoidosis possible- evaluated by pulmonary; felt no active sarcoidosis and would not merit steroid therapy given weight/diabetic state. 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 "prior EF of 25% while in aflutter, subsequently normal in NSR" Surgical History H/O cardiac radiofrequency ablation H/O prior ablation treatment History of arthroscopic knee surgery History of bronchoscopy History of cataract surgery local anesthesia only per pt History of cholecystectomy History of extraction of renal calculus History of lung surgery thoracoscopy, right VATS, wedge resection History of umbilical hernia repair Hx of carpal tunnel repair Pacemaker Implanted 02/2017 secondary to Sinus node dysfunction/tachy sherry syndrome/3rd degree AVB [employer] Pacer check 6/14/18 Status post incision and drainage Family History Mother Cancer Social History Smoking Status: Never smoker Second Hand Exposure: No; Hx Alcohol Use: No Hx Substance Use: No Preferred Language: Vietnamese Communication Ability: Effective Visual Impairment: No Limitations Hearing Ability: Normal 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: No Beliefs That Will Affect Care: None marital status: Current Living Situation: Alone current occupational status: retired How many Children do You have: 2 Feels Safe at Home: Yes Diet Comment: FLUID RESTRICTION during the past year weight has: other Assistive Devices: Walker Review of Systems Unobtainable due to cognitive status Physical Exam Vital Signs Vital Signs - 24 hr 07/27/21 16:23 07/27/21 16:53 07/27/21 17:29 Temperature 36.5 C Temperature Source Oral Pulse Rate 69 69 61 Pulse Rhythm Regular Regular Pulse Strength Normal Respiratory Rate 26 H 26 H 18 Respiratory Effort / Characteristics Non-Labored Respiratory Depth Normal Respiratory Pattern Tachypnea Blood Pressure 107/43 L 146/77 H Blood Pressure [Right Arm] Blood Pressure Mean 64 100 Blood Pressure Mean [Right Arm] Blood Pressure Position Sitting Pulse Oximetry 98 98 97 Oxygen Delivery Method Room Air Room Air Sepsis Recent Fever Within 48 Hours No Sepsis New/Unexplained Change in Mental Status No Sepsis Action Taken by Nursing No Action Required 07/27/21 17:30 07/27/21 17:49 07/27/21 18:00 Temperature Temperature Source Pulse Rate 62 64 65 Pulse Rhythm Pulse Strength Respiratory Rate 20 20 20 Respiratory Effort / Characteristics Respiratory Depth Respiratory Pattern Blood Pressure 148/74 H 152/90 H 167/72 H Blood Pressure [Right Arm] Blood Pressure Mean 98 110 103 Blood Pressure Mean [Right Arm] Blood Pressure Position Pulse Oximetry 97 96 93 Oxygen Delivery Method Sepsis Recent Fever Within 48 Hours Sepsis New/Unexplained Change in Mental Status Sepsis Action Taken by Nursing 07/27/21 18:15 07/27/21 18:30 07/27/21 19:10 Temperature Temperature Source Pulse Rate 62 62 64 Pulse Rhythm Pulse Strength Respiratory Rate 20 22 16 Respiratory Effort / Characteristics Respiratory Depth Normal Respiratory Pattern Blood Pressure 160/105 H 179/79 H Blood Pressure [Right Arm] 140/69 Blood Pressure Mean 123 112 Blood Pressure Mean [Right Arm] 92 Blood Pressure Position Pulse Oximetry 98 98 97 Oxygen Delivery Method Room Air Sepsis Recent Fever Within 48 Hours Sepsis New/Unexplained Change in Mental Status Sepsis Action Taken by Nursing Physical Exam GENERAL: Patient is sitting in EMS gurney and pants soiled with urine. HENT: Exam performed. - Head: Normocephalic and atraumatic. - Right Ear: External ear normal. No mastoid tenderness. - Left Ear: External ear normal. No mastoid tenderness. - Mouth/Throat: The oropharynx is clear and moist. No trismus in the jaw. No dental abscesses or uvula swelling. No oropharyngeal exudate or tonsillar abscesses. EYES: Conjunctivae and EOM are normal. Pupils are equal, round, and reactive to light. Right eye exhibits no discharge. Left eye exhibits no discharge. No scleral icterus. NECK: Normal range of motion. Neck supple. No JVD present. No spinous process tenderness present. No carotid bruit present. No rigidity. No tracheal deviation and normal range of motion present. No Brudzinski's sign and no Kernig's sign noted. CV: Normal rate, regular rhythm, normal heart sounds and intact distal pulses. There is no peripheral edema. Palpable radial pulses bue. PULM/CHEST: Effort normal and breath sounds normal. No respiratory distress. No stridor. He has no wheezes. He has no rales. - Chest Wall: He exhibits no tenderness. ABD: The abdomen is soft. Bowel sounds are normal. He has no distension. No mass is present. There is no tenderness. There is no rebound, no guarding, no Will's sign and no tenderness at McBurney's point. Rovsig negative. MUSC/SKEL: Normal range of motion. There is no peripheral edema, tenderness or deformity. LYMPH: No cervical adenopathy. NEURO: Motor and sensation grossly intact. Course Course 182: The patient was evaluated in room C6. A complete history and physical exam was performed Cardiac monitoring: An order was placed for continuous cardiac monitoring. The monitor shows a rate of 70 with paced rhythm EMS gave 500 cc normal saline bolus at my discretion. 1829: Vital signs stable. On reassessment patient is in no respiratory distress. Labs show A white blood cell count of 7.12. Hemoglobin 14.4. Sodium 124. Creatinine 1.9. Glucose 840. Lactic acid 4.1. Urinalysis does appear to be infected. Patient will be treated with an additional 2 L normal saline bolus based off his ideal body weight and then also treated with Rocephin. After the IV fluids ago and we will recheck the patient's lactic acid and his metabolic panel to see if the patient needs an insulin drip for any potential DKA. 1958: Vital signs stable. Status post 2.5 L normal saline repeat labs were done which showed an improvement in the creatinine from 1.9 to 1.59. Lactic acid is improved from 4.1 to 1.9. Glucose is improved from 840 to 776. Anion gap closed from 14 to 12. I did discuss the case with [facility] hospitalist Dr. Bedoya. Given the patient's anion gap is improving with fluids I did ask him if he wanted restart the patient on insulin drip or discontinue IV fluids. Dr. Bedoya states he knows patient well and that the patient used to have an insulin pump and who reviewed the patient's case before deciding to start him on an insulin drip or not. Administered Medications Sodium Chloride (Nss 1000ml) 1,000 mls @ 125 mls/hr IV .Q8H OFE Stop: 08/26/21 16:29 Last Admin: 07/27/21 16:45 Dose: 125 mls/hr Documented by: [id number] Discontinued Medications Ceftriaxone Sodium (Rocephin) 1,000 mg in 50 mls @ 100 mls/hr IV NOW STA Stop: 07/27/21 17:52 Last Infusion: 07/27/21 19:31 Dose: 0 mls/hr Documented by: [id number] Admin: 07/27/21 17:57 Dose: 100 mls/hr Documented by: [id number] Sodium Chloride (Nss 1000ml) 2,000 mls @ 999 mls/hr IV .Q2H1M ONE Stop: 07/27/21 19:23 Last Admin: 07/27/21 17:41 Dose: 999 mls/hr Documented by: [id number] Critical Care Time Critical Care Time: Yes Total Critical Care Time: 96 I have personally spent greater than 96 minutes of critical care time in the direct management of this patient. This includes bedside care, interpretation of diagnostic studies, and testing, discussion with consultants, patient, and family members, and other required patient management activities. This 96 minutes is in excess of all separately billable procedures. Medical Decision Making Laboratory Data Result diagrams: 07/27/21 16:40 07/27/21 19:02 Lab Results 07/27/21 07/27/21 07/27/21 Range/Units 16:27 16:40 16:40 WBC (4.8-10.8) K/uL RBC (4.7-6.1) M/uL Hgb (14.0-18.0) g/dL Hct (42-52) % MCV (80-100) fL MCH (25-34) pg MCHC (32-36) g/dL RDW Std Deviation (36.4-46.3) fL RDW Coeff of Baldo (11.5-14.5) % Plt Count (130-400) K/uL MPV (7.4-10.4) fL Immature Gran % (Auto) % Neut % (Auto) % Lymph % (Auto) % Sac % (Auto) % Eos % (Auto) % Baso % (Auto) % Neut # (Auto) (1.4-6.5) K/uL Lymph # (Auto) (1.2-3.4) K/uL Sac # (Auto) (0.11-0.59) K/uL Eos # (Auto) (0-0.5) K/uL Baso # (Auto) (0-0.2) K/uL Immature Gran # (Auto) (0.00-0.02) K/uL PT (9.0-12.0) Seconds INR (0.9-1.1) APTT (21.0-31.0) Seconds PTT Ratio Sodium 124 L (136-145) mmol/L Potassium 4.8 (3.5-5.1) mmol/L Chloride 82 L (98-107) mmol/L Carbon Dioxide 28 (21-32) mmol/L Anion Gap 14 H (3-11) BUN 48 H (6-23) mg/dl Creatinine 1.90 H (0.6-1.4) mg/dl Est Cr Clr Drug Dosing Not Reportable Est GFR ( Amer) 40.8 ml/min Est GFR (Non-Af Amer) 35.2 ml/min BUN/Creatinine Ratio 25.3 H (10-20) Glucose 840 H* (70-99) mg/dl Lactate (0.4-2.0) mmol/L Calcium 9.9 (8.5-10.1) mg/dl Magnesium 2.6 H (1.7-2.4) mg/dl Total Bilirubin 1.7 H (0.2-1.0) mg/dl AST 35 (13-39) U/L ALT 27 (7-52) U/L Alkaline Phosphatase 171 H (34-104) U/L Troponin I < 0.03 (0-0.04) ng/ml Total Protein 7.8 (6.0-8.3) gm/dl Albumin 4.1 (3.4-5.0) gm/dl Globulin 3.7 (2.5-4.0) gm/dl Albumin/Globulin Ratio 1.1 (0.9-2) Procalcitonin 0.09 (0-0.5) ng/ml Urine Color Yellow Urine Appearance Turbid A (Clear) Urine pH 5.5 (4.5-7.5) Ur Specific [place] 1.024 (1.000-1.030) Urine Protein Trace H (Negative) Urine Glucose (UA) 3+ H (Negative) Urine Ketones Negative (Negative) Urine Blood 2+ H (Negative) Urine Nitrite Positive A (Negative) Urine Bilirubin Negative (Negative) Urine Urobilinogen Negative (Negative) Ur Leukocyte Esterase 3+ H (Negative) Urine RBC 5-10 H (0-4) /hpf Urine WBC >30 H (0-5) /hpf Ur Epithelial Cells 0-5 (0-5) /lpf Urine Bacteria 1+ H (Negative) SARS-CoV-2 (PCR) (Negative) Influenza Type A (PCR) (Neg) Influenza Type B (PCR) (Neg) RSV (RT-PCR) (Neg) 07/27/21 07/27/21 07/27/21 Range/Units 16:40 16:40 16:40 WBC 7.12 (4.8-10.8) K/uL RBC 4.62 L (4.7-6.1) M/uL Hgb 14.4 (14.0-18.0) g/dL Hct 44.4 (42-52) % MCV 96.1 (80-100) fL MCH 31.2 (25-34) pg MCHC 32.4 (32-36) g/dL RDW Std Deviation 48.4 H (36.4-46.3) fL RDW Coeff of Baldo 14.0 (11.5-14.5) % Plt Count 173 (130-400) K/uL MPV 12.3 H (7.4-10.4) fL Immature Gran % (Auto) 0.1 % Neut % (Auto) 72.0 % Lymph % (Auto) 17.0 % Sac % (Auto) 9.0 % Eos % (Auto) 1.5 % Baso % (Auto) 0.4 % Neut # (Auto) 5.12 (1.4-6.5) K/uL Lymph # (Auto) 1.21 (1.2-3.4) K/uL Sac # (Auto) 0.64 H (0.11-0.59) K/uL Eos # (Auto) 0.11 (0-0.5) K/uL Baso # (Auto) 0.03 (0-0.2) K/uL Immature Gran # (Auto) 0.01 (0.00-0.02) K/uL PT 10.3 (9.0-12.0) Seconds INR 1.0 (0.9-1.1) APTT 29.2 (21.0-31.0) Seconds PTT Ratio 1.1 Sodium (136-145) mmol/L Potassium (3.5-5.1) mmol/L Chloride (98-107) mmol/L Carbon Dioxide (21-32) mmol/L Anion Gap (3-11) BUN (6-23) mg/dl Creatinine (0.6-1.4) mg/dl Est Cr Clr Drug Dosing Est GFR ( Amer) ml/min Est GFR (Non-Af Amer) ml/min BUN/Creatinine Ratio (10-20) Glucose (70-99) mg/dl Lactate 4.1 H* (0.4-2.0) mmol/L Calcium (8.5-10.1) mg/dl Magnesium (1.7-2.4) mg/dl Total Bilirubin (0.2-1.0) mg/dl AST (13-39) U/L ALT (7-52) U/L Alkaline Phosphatase (34-104) U/L Troponin I (0-0.04) ng/ml Total Protein (6.0-8.3) gm/dl Albumin (3.4-5.0) gm/dl Globulin (2.5-4.0) gm/dl Albumin/Globulin Ratio (0.9-2) Procalcitonin (0-0.5) ng/ml Urine Color Urine Appearance (Clear) Urine pH (4.5-7.5) Ur Specific [place] (1.000-1.030) Urine Protein (Negative) Urine Glucose (UA) (Negative) Urine Ketones (Negative) Urine Blood (Negative) Urine Nitrite (Negative) Urine Bilirubin (Negative) Urine Urobilinogen (Negative) Ur Leukocyte Esterase (Negative) Urine RBC (0-4) /hpf Urine WBC (0-5) /hpf Ur Epithelial Cells (0-5) /lpf Urine Bacteria (Negative) SARS-CoV-2 (PCR) (Negative) Influenza Type A (PCR) (Neg) Influenza Type B (PCR) (Neg) RSV (RT-PCR) (Neg) 07/27/21 07/27/21 07/27/21 Range/Units 16:40 19:02 19:02 WBC (4.8-10.8) K/uL RBC (4.7-6.1) M/uL Hgb (14.0-18.0) g/dL Hct (42-52) % MCV (80-100) fL MCH (25-34) pg MCHC (32-36) g/dL RDW Std Deviation (36.4-46.3) fL RDW Coeff of Baldo (11.5-14.5) % Plt Count (130-400) K/uL MPV (7.4-10.4) fL Immature Gran % (Auto) % Neut % (Auto) % Lymph % (Auto) % Sac % (Auto) % Eos % (Auto) % Baso % (Auto) % Neut # (Auto) (1.4-6.5) K/uL Lymph # (Auto) (1.2-3.4) K/uL Sac # (Auto) (0.11-0.59) K/uL Eos # (Auto) (0-0.5) K/uL Baso # (Auto) (0-0.2) K/uL Immature Gran # (Auto) (0.00-0.02) K/uL PT (9.0-12.0) Seconds INR (0.9-1.1) APTT (21.0-31.0) Seconds PTT Ratio Sodium 124 L (136-145) mmol/L Potassium (3.5-5.1) mmol/L Chloride 90 L (98-107) mmol/L Carbon Dioxide 22 (21-32) mmol/L Anion Gap 12 H (3-11) BUN 44 H (6-23) mg/dl Creatinine 1.59 H D (0.6-1.4) mg/dl Est Cr Clr Drug Dosing 61.6 Est GFR ( Amer) 50.6 ml/min Est GFR (Non-Af Amer) 43.6 ml/min BUN/Creatinine Ratio 27.7 H (10-20) Glucose 776 H* (70-99) mg/dl Lactate 1.9 (0.4-2.0) mmol/L Calcium 9.0 (8.5-10.1) mg/dl Magnesium (1.7-2.4) mg/dl Total Bilirubin (0.2-1.0) mg/dl AST (13-39) U/L ALT (7-52) U/L Alkaline Phosphatase (34-104) U/L Troponin I (0-0.04) ng/ml Total Protein (6.0-8.3) gm/dl Albumin (3.4-5.0) gm/dl Globulin (2.5-4.0) gm/dl Albumin/Globulin Ratio (0.9-2) Procalcitonin (0-0.5) ng/ml Urine Color Urine Appearance (Clear) Urine pH (4.5-7.5) Ur Specific [place] (1.000-1.030) Urine Protein (Negative) Urine Glucose (UA) (Negative) Urine Ketones (Negative) Urine Blood (Negative) Urine Nitrite (Negative) Urine Bilirubin (Negative) Urine Urobilinogen (Negative) Ur Leukocyte Esterase (Negative) Urine RBC (0-4) /hpf Urine WBC (0-5) /hpf Ur Epithelial Cells (0-5) /lpf Urine Bacteria (Negative) SARS-CoV-2 (PCR) NEGATIVE (Negative) Influenza Type A (PCR) Negative (Neg) Influenza Type B (PCR) Negative (Neg) RSV (RT-PCR) Negative (Neg) Imaging Data Radiologist's Impression: Head CT 07/27/21 16:22 CT OF THE HEAD WITHOUT CONTRAST CLINICAL HISTORY: Altered mental status. COMPARISON STUDY: Head CT July 11, 2021. CT DOSE: 810.83 mGy.cm TECHNIQUE: Helical axial images of the head were obtained without IV contrast. Automated exposure control was utilized for the study. A dose lowering techniq ue was utilized adhering to the principles of ALARA. FINDINGS: No acute intracranial hemorrhage, midline shift or mass effect is present. The ventricular system is unremarkable. The basal cisterns are patent. No extra-axial collections are present. There are no findings to suggest acute dural sinus thrombosis or acute territorial infarct. No significant calvarial abnormalities are present. Visualized portions of the sinuses and mastoid air cells are clear. IMPRESSION: No acute intracranial findings. ACT 112: Negative or not required by law. Electronically signed by: Basil Hills M.D. 07/27/2021 5:20 PM Chest X-Ray 07/27/21 16:23 XR chest 1V portable CLINICAL HISTORY: SEPSIS COMPARISON STUDY: Chest radiograph and chest CT July 11, 2021. FINDINGS: Dual lead left subclavian pacer is in place. Cardiomegaly is unchanged. No pneumothorax or pleural effusion is noted. There is no evidence for pulmonary edema. Bilateral hilar enlargement is unchanged. This is due to lymphadenopathy, as shown on chest CT. IMPRESSION: No acute cardiopulmonary findings. ACT 112: Negative or not required by law. Electronically signed by: Basil Hills M.D. 07/27/2021 5:31 PM ECG Data Additional Comments: Paced rhythm with a rate of 65. [place] 238 QRS 178 QTC 511 no ectopy. [facility] Narrative 1820: The patient was evaluated in room C6. A complete history and physical exam was performed Cardiac monitoring: An order was placed for continuous cardiac monitoring. The monitor shows a rate of 70 with paced rhythm EMS gave 500 cc normal saline bolus at my discretion. 1830: Vital signs stable. On reassessment patient is in no respiratory distress. Labs show A white blood cell count of 7.12. Hemoglobin 14.4. Sodium 124. Creatinine 1.9. Glucose 840. Lactic acid 4.1. Urinalysis does appear to be infected. Patient will be treated with an additional 2 L normal saline bolus based off his ideal body weight and then also treated with Rocephin. After the IV fluids ago and we will recheck the patient's lactic acid and his metabolic panel to see if the patient needs an insulin drip for any potential DKA. 1958: Vital signs stable. Status post 2.5 L normal saline repeat labs were done which showed an improvement in the creatinine from 1.9 to 1.59. Lactic acid is improved from 4.1 to 1.9. Glucose is improved from 840 to 776. Anion gap closed from 14 to 12. I did discuss the case with [facility] hospitalist Dr. Bedoya. Given the patient's anion gap is improving with fluids I did ask him if he wanted restart the patient on insulin drip or discontinue IV fluids. Dr. Bedoya states he knows patient well and that the patient used to have an insulin pump and who reviewed the patient's case before deciding to start him on an insulin drip or not. Impression & Plan Sepsis, ALMA ROSA (acute kidney injury), DKA (diabetic ketoacidosis), Acute UTI Discharge Plan Visit Data Chief Complaint: Hyperglycemia Stated Complaint: hyperglycemia, fever, confusion ED Provider: Trey Morrissey Discharge Problem: Sepsis, ALMA ROSA (acute kidney injury), DKA (diabetic ketoacidosis), Acute UTI Patient Disposition: Admitted As Inpatient Forms Stand Alone Forms: My [facility] Prescriptions Prescriptions: No Action aspirin [Adult Low Dose Aspirin] 81 mg tablet,delayed release (DR/EC) 81 mg PO QAM RF: 0 duloxetine 60 mg capsule,delayed release(DR/EC) 60 mg PO QAM RF: 0 cholecalciferol (vitamin D3) 2,000 unit capsule 2,000 units PO QAM RF: 0 oxybutynin chloride [Ditropan XL] 10 mg tablet extended release 24hr 10 mg PO DAILY RF: 0 digoxin 125 mcg Tablet 0.125 mg PO QPM Qty: 0 RF: 0 levothyroxine 200 mcg tablet 200 mcg PO QAM Qty: 0 RF: 0 colchicine 0.6 mg capsule 0.6 mg PO Q OTHER DAY Qty: 0 RF: 0 allopurinol 300 mg tablet 300 mg PO QAM RF: 0 omeprazole 20 mg capsule,delayed release(DR/EC) 20 mg PO QAM RF: 0 atorvastatin 20 mg tablet 10 mg PO HS RF: 0 meclizine 12.5 mg tablet 12.5 mg PO TID PRN (Reason: headaches) RF: 0 albuterol sulfate 90 mcg/actuation HFA aerosol inhaler 2 puffs INH QID PRN (Reason: Shortness Of Breath Or Wheezing) RF: 0 levothyroxine 50 mcg tablet 50 mcg PO QAM RF: 0 metoprolol succinate 100 mg tablet extended release 24 hr 150 mg PO BID RF: 0 [facility] 250-2.5-0.5 mg Capsule 1 cap PO BID RF: 0 bupropion HCl 150 mg tablet extended release 24 hr 150 mg PO QAM RF: 0 potassium chloride [Klor-Con M20] 20 mEq tablet,ER particles/crystals 20 meq PO BID RF: 0 nitroglycerin 0.4 mg tablet, sublingual 0.4 mg sublingual UD PRN (Reason: Chest Pain) RF: 0 Multiple Vitamin-Minerals Tablet 1 tab PO DAILY RF: 0 sennosides-docusate sodium [Senna with Docusate Sodium] 8.6-50 mg Tablet 1 tab-cap PO BID PRN (Reason: Constipation) RF: 0 nystatin 100,000 unit/gram Powder 1 applic TOPICAL BID RF: 0 metolazone 2.5 mg Tablet 2.5 mg PO DAILY PRN (Reason: WT GAIN 3#/24 HRS OR 5#/48 HRS.) RF: 0 magnesium oxide 400 mg magnesium Tablet 400 mg PO DAILY RF: 0 spironolactone [Aldactone] 25 mg tablet 25 mg PO DAILY RF: 0 furosemide 80 mg tablet 80 mg PO BID RF: 0 calcipotriene 0.005 % cream 1 applic TOPICAL BID RF: 0 pregabalin 75 mg capsule 75 mg PO BID RF: 0 apixaban 5 mg Tablet 5 mg PO BID RF: 0 hydrocodone-acetaminophen 5-325 mg Tablet 1 tab PO Q6H PRN (Reason: MODERATE TO SEVERE PAIN) Qty: 10 RF: 0 polymyxin B sulf-trimethoprim 10,000 unit- 1 mg/mL Drops 1 drp OPB Q3H Qty: 10 RF: 1 insulin regular hum U-500 conc 500 unit/mL (3 mL) insulin pen 80 unit subcut QAM 30 Days Qty: 6 RF: 2 insulin regular hum U-500 conc 500 unit/mL (3 mL) insulin pen 35 unit subcut PM 30 Days Qty: 6 RF: 2 insulin aspart U-100 100 unit/mL (3 mL) insulin pen 1 sliding scale dose subcut USEASDIRECTD Qty: 30 RF: 2 gabapentin 300 mg capsule 300 mg PO TID RF: 0 acetaminophen [Acetaminophen Extra Strength] 500 mg Tablet 1,000 mg PO Q6H PRN (Reason: Pain) RF: 0 tramadol 50 mg Tablet 50 mg PO Q6H PRN (Reason: Pain) RF: 0 warfarin 4 mg Tablet 4 mg PO .UD RF: 0 Referrals Referrals: Pura Willingham MD [Primary Care Provider] -
[2021-07-27 17:04] LABS: Partial Thromboplastin Ratio 1.1; Partial Thromboplastin Time 29.2 Seconds (21.0-31.0); Prothrombin Time 10.3 Seconds (9.0-12.0)
[2021-07-27 17:21] LABS: Epithelial Cell Urine 0-5 /lpf (0-5); WBC Urine >30 /hpf (0-5)
--- NOTE | 2021-07-27 17:21 | CT Scan Report ---
CT OF THE HEAD WITHOUT CONTRAST CLINICAL HISTORY: Altered mental status. COMPARISON STUDY: Head CT July 11, 2021. CT DOSE: 810.83 mGy.cm TECHNIQUE: Helical axial images of the head were obtained without IV contrast. Automated exposure con trol was utilized for the study. A dose lowering technique was utilized adhering to the principles o f ALARA. FINDINGS: No acute intracranial hemorrhage, midline shift or mass effect is present. The ventricular system is unremarkable. The basal cisterns are patent. No extra-axial collections are present. There are no findings to suggest acute dural sinus thrombosis or acute territorial infarct. No significant calvarial abnormalities are present. Visualized portions of the sinuses and mastoid air cells are kristina ar. IMPRESSION: No acute intracranial findings. ACT 112: Negative or not required by law. Electronically signed by: Basil Hills M.D. 07/27/2021 5:20 PM
[2021-07-27 17:22] LABS: Bacteria Urine 1+ (Negative)
[2021-07-27 17:23] LABS: Alanine Aminotransferase 27 U/L (7-52); Albumin Globulin Ratio 1.1 (0.9-2); Albumin Level 4.1 gm/dl (3.4-5.0); Alkaline Phosphatase 171 U/L (34-104); Anion Gap 14 (3-11); Aspartate Aminotransferase 35 U/L (13-39); BUN Creatinine Ratio 25.3 (10-20); Bilirubin,Total 1.7 mg/dl (0.2-1.0); Blood Urea Nitrogen 48 mg/dl (6-23); Calcium 9.9 mg/dl (8.5-10.1); Carbon Dioxide 28 mmol/L (21-32); Chloride 82 mmol/L (98-107); Est GFR (African American) 40.8 ml/min; Est GFR (Non-African American) 35.2 ml/min; Globulin 3.7 gm/dl (2.5-4.0); Glucose 840 mg/dl (70-99); Magnesium 2.6 mg/dl (1.7-2.4); Potassium 4.8 mmol/L (3.5-5.1); Sodium 124 mmol/L (136-145); Total Protein 7.8 gm/dl (6.0-8.3)
[2021-07-27] MEDS ORDERED: SODIUM CHLORIDE 0.9% 1000ML 2,000 ML IV ONE (17:23)
[2021-07-27] MEDS ORDERED: cefTRIAXone SODIUM 1,000 MG/50 ML BAG IV STA (17:23)
[2021-07-27 17:27] LABS: Troponin I < 0.03 ng/ml (0-0.04)
--- NOTE | 2021-07-27 17:32 | XRay Report ---
XR chest 1V portable CLINICAL HISTORY: SEPSIS COMPARISON STUDY: Chest radiograph and chest CT July 11, 2021. FINDINGS: Dual lead left subclavian pacer is in place. Cardiomegaly is unchanged. No pneumothorax or pleural effusion is noted. There is no evidence for pulmonary edema. Bilateral hilar enlargement is u nchanged. This is due to lymphadenopathy, as shown on chest CT. IMPRESSION: No acute cardiopulmonary findings. ACT 112: Negative or not required by law. Electronically signed by: Basil Hills M.D. 07/27/2021 5:31 PM
[2021-07-27 17:36] LABS: Influenza A virus by PCR Negative (Neg); Influenza B virus by PCR Negative (Neg); RSV by PCR Negative (Neg); SARS CoV2 RNA(COVID-19) InHosp NEGATIVE (Negative)
[2021-07-27 19:34] LABS: BUN Creatinine Ratio 27.7 (10-20); Creatinine Clr Calc Pharmacy 61.6 ml/min; Est GFR (African American) 50.6 ml/min; Est GFR (Non-African American) 43.6 ml/min
[2021-07-27] MEDS ORDERED: STAT IV Infusion **Titration per Protocol STA ×3 (19:47→20:16)
[2021-07-27] MEDS ORDERED: SEVERE STRESS LEVEL ONE (19:47)
[2021-07-27] MEDS ORDERED: INSULIN PROTOCOL GOAL RANGE ONE (19:47)
[2021-07-27] MEDS ORDERED: INSULIN REGULAR 250 UNITS in SODIUM CHLORIDE 0.9% 247.5 ML IV SCH (20:00)
[2021-07-27] MEDS ORDERED: PHARMACY GLYCEMIC MGMT CONSULT PRN (20:11)
[2021-07-27] MEDS ORDERED: HHS GOAL RANGE 250-350 mg/dl ONE (20:16)
[2021-07-27] MEDS ORDERED: GLUCOSE 10 TABS/TUBE PO PRN (20:30)
[2021-07-27] MEDS ORDERED: GLUCOSE 40% GEL 15 GM TUBE PO PRN (20:30)
[2021-07-27] MEDS ORDERED: INSULIN HUMAN REGULAR IV BOLUS 10 UNITS in SYRINGE 0 ML IV ONE (20:30)
[2021-07-27] MEDS ORDERED: DEXTROSE 50% 50 ML SYRINGE IV PRN (20:30)
[2021-07-27] MEDS ORDERED: CARBOHYDRATES FOR HYPOGLYCEMIA PO PRN (20:30)
[2021-07-27] MEDS ORDERED: GLUCAGON FOR INJ 1 MG VIAL IM PRN (20:30)
[2021-07-27 20:39] LABS: Thyroid Stimulating Hormone 6.062 uIu/ml (0.300-4.500)
[2021-07-27 20:48] LABS: Phosphorus 3.3 mg/dl (2.5-4.9); Potassium 4.1 mmol/L (3.5-5.1)
[2021-07-27] MEDS: INSULIN REGULAR 250 UNITS in SODIUM CHLORIDE 0.9% 247.5 ML IV SCH (20:49)
[2021-07-27] MEDS: INSULIN ASPART PER UNIT SC SCH (21:00)
[2021-07-27] MEDS ORDERED: INSULIN ASPART PER UNIT SC SCH (21:00)
[2021-07-27 21:10] LABS: T4 Free Thyroxine 0.56 ng/dl (0.61-1.60)
[2021-07-27] MEDS ORDERED: CEFEPIME 2,000 MG/20 ML VIAL IV STA (21:36)
[2021-07-27 22:05] LABS: Base Excess VBG -1.2 mEq/L; Oxygen Saturation VBG 97.3 %; pH VBG 7.39 (7.36-7.41)
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
[2021-07-27] MEDS ORDERED: NSS + 20MEQ KCL 20 MEQ/1,000 ML BAG IV ONE (22:28)
[2021-07-28] MEDS: METOPROLOL SUCC 50MG EXT REL TAB PO SCH ×3 (00:34→21:15)
[2021-07-28] MEDS ORDERED: PROMETHAZINE HCL 12.5 MG in SODIUM CHLORIDE 0.9% 50 ML IV PRN (01:47)
[2021-07-28] MEDS ORDERED: ACETAMINOPHEN 325 MG TAB PO PRN (01:47)
[2021-07-28] MEDS ORDERED: DOCUSATE SODIUM/SENNA 50/8.6MG TAB PO PRN (01:47)
[2021-07-28 02:45] LABS: Basophils # (auto) 0.03 K/uL (0-0.2); Basophils % (auto) 0.4 %; Eosinophils # (auto) 0.16 K/uL (0-0.5); Eosinophils % (auto) 2.2 %; Hematocrit (blood only) 41.5 % (42-52); Hemoglobin 14.1 g/dL (14.0-18.0); Immature Granulocytes # (auto) 0.01 K/uL (0.00-0.02); Immature Granulocytes % (auto) 0.1 %; Lymphocytes # (auto) 1.41 K/uL (1.2-3.4); Lymphocytes % (auto) 19.5 %; Mean Corpuscular Hemoglobin 31.1 pg (25-34); Mean Corpuscular Volume 91.4 fL (80-100); Mean Platelet Volume 11.9 fL (7.4-10.4); Monocytes # (auto) 0.66 K/uL (0.11-0.59); Monocytes % (auto) 9.1 %; Neutrophils # (auto) 4.97 K/uL (1.4-6.5); Neutrophils % (auto) 68.7 %; Platelet Count 174 K/uL (130-400); RDW Coefficient of Variation 13.5 % (11.5-14.5); Red Blood Count 4.54 M/uL (4.7-6.1); White Blood Count 7.24 K/uL (4.8-10.8)
[2021-07-28] MEDS: APIXABAN 5 MG TABLET PO SCH ×3 (03:01→21:15)
[2021-07-28 03:04] LABS: BUN Creatinine Ratio 26.3 (10-20); Creatinine Clr Calc Pharmacy 61.5 ml/min; Est GFR (African American) 51.8 ml/min; Est GFR (Non-African American) 44.7 ml/min; Potassium 3.1 mmol/L (3.5-5.1)
[2021-07-28] MEDS ORDERED: POTASSIUM CHLORIDE PWD 20 MEQ PACK PO STA (03:11)
[2021-07-28] MEDS ORDERED: PENDING D5 1/2NS+20mEq KCL IVF SCH (04:00)
[2021-07-28] MEDS: MICONAZOLE NITRATE POWDER 43 GM EXT SCH ×3 (05:28→21:15)
[2021-07-28] MEDS: LEVOTHYROXINE SODIUM 200 MCG TABLET PO SCH (05:30)
[2021-07-28] MEDS: LEVOTHYROXINE SODIUM 50 MCG TABLET PO SCH (05:30)
[2021-07-28] MEDS: DULoxetine HCL 60 MG CAP PO SCH (08:32)
[2021-07-28] MEDS: ASPIRIN 81 MG ECTAB PO SCH (08:32)
[2021-07-28] MEDS: CEROVITE ADV FORMULA TAB PO SCH (08:32)
[2021-07-28] MEDS: allopurinoL 300 MG TAB PO SCH (08:33)
[2021-07-28] MEDS: GABAPENTIN 300 MG CAP PO SCH ×3 (08:33→21:15)
[2021-07-28] MEDS: PANTOprazole 40 MG TAB PO SCH (08:33)
[2021-07-28] MEDS: buPROPion XL 150 MG TABCR PO SCH (08:33)
[2021-07-28] MEDS: PREGABALIN 75 MG CAP PO SCH ×2 (08:42→21:15)
[2021-07-28] MEDS ORDERED: [UNRECOGNIZED DRUG - OTHER] PO SCH (09:00)
[2021-07-28] MEDS: INSULIN ASPART PER UNIT SC SCH ×4 (09:10→21:04)
--- NOTE | 2021-07-28 09:54 | Electrocardiogram Report ---
Test Reason : Blood Pressure : / mmHG Vent. Rate : 065 BPM Atrial Rate : 241 BPM P-R Int : 238 ms QRS Dur : 178 ms QT Int : 492 ms P-R-T Axes : 048 -71 087 degrees QTc Int : 511 ms Poor data quality, interpretation may be adversely affected Atrial-paced rhythm with prolonged AV conduction Right bundle branch block Left anterior fascicular block Bifascicular block T wave abnormality, consider lateral ischemia Abnormal ECG When compared with ECG of 11-JUL-2021 23:32, Electronic atrial pacemaker has replaced Atrial fibrillation Confirmed by Thom Duran ([id number]) on 07/28/2021 9:54:16 AM Referred By: REFERRED SELF Confirmed By:Thom Duran
[2021-07-28] MEDS: CEFEPIME 2,000 MG in SYRINGE 0 ML IV SCH (10:39)
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
[2021-07-28] MEDS ORDERED: NovoLIN-N (NPH) PER UNIT CHARGE SQ ONE (15:15)
[2021-07-28] MEDS: oxyCODONE HCL IR 5 MG TAB (IMMEDIATE RELEASE) PO PRN (16:26)
--- NOTE | 2021-07-28 19:31 | Pharmacy Report ---
Pharmacy Glycemic Short Note 2 - Date of Service July 28, 2021 - Glycemic Short BSG Results (Last 24 hours): 07/27/21 07/27/21 07/28/21 19:02 21:45 02:17 Glucose 776 H* 603 H* 232 H OUTPATIENT ANTIDIABETIC REGIMEN: * U-500 80 units Qam and 35 units Qpm, dulaglutide * A1c 9.5% ASSESSMENT: * Patient presenting with HHS/DKA - started on insulin infusion per protocol. Patient presenting from [facility] due to confusion/hyperglycemia/hypothermia/urinary incontinence. Insulin pump stopped on last admission due to multiple hypoglycemic episodes outpatient and concern for it to not be working properly. Per notes, patient had been managing his insulin doses at assisted living facility. He follows [facility] clinic in [place] for DM management * Continues on insulin drip this morning, anion gap closed. Insulin drip running at 5 units/hr currently, however drip rates not stable - will give 60 units of NPH this afternoon to be given with insulin drip. * Likely drip will remain ongoing for now, will consider resuming home U-500 dose in the AM if drip rates stable and when we have a better idea of insulin needs. PLAN FOR INPATIENT GLYCEMIC CONTROL: * Continue insulin infusion * Basal insulin * NPH 60 units x 1 * Bolus insulin * per insulin calculator PLAN FOR DISCHARGE: * tbd
[2021-07-28] MEDS: ATORVASTATIN 10 MG TAB PO SCH (21:15)
[2021-07-28] MEDS: DIGOXIN 0.125 MG TAB PO SCH (21:15)
[2021-07-29] MEDS: CEFEPIME 2,000 MG in SYRINGE 0 ML IV SCH ×3 (00:29→23:01)
[2021-07-29] MEDS: LEVOTHYROXINE SODIUM 50 MCG TABLET PO SCH (05:48)
[2021-07-29] MEDS: LEVOTHYROXINE SODIUM 200 MCG TABLET PO SCH (05:48)
[2021-07-29] MEDS: oxyCODONE HCL IR 5 MG TAB (IMMEDIATE RELEASE) PO PRN (07:55)
[2021-07-29] MEDS: buPROPion XL 150 MG TABCR PO SCH (07:55)
[2021-07-29] MEDS: allopurinoL 300 MG TAB PO SCH (07:56)
[2021-07-29] MEDS: ASPIRIN 81 MG ECTAB PO SCH (07:56)
[2021-07-29] MEDS: CEROVITE ADV FORMULA TAB PO SCH (07:56)
[2021-07-29] MEDS: COLCHICINE 0.6 MG TAB PO SCH (07:56)
[2021-07-29] MEDS: DULoxetine HCL 60 MG CAP PO SCH (07:56)
[2021-07-29] MEDS: METOPROLOL SUCC 50MG EXT REL TAB PO SCH ×2 (07:57→21:17)
[2021-07-29] MEDS: GABAPENTIN 300 MG CAP PO SCH ×3 (07:57→20:05)
[2021-07-29] MEDS: PANTOprazole 40 MG TAB PO SCH (07:57)
[2021-07-29] MEDS: APIXABAN 5 MG TABLET PO SCH ×2 (07:57→20:05)
[2021-07-29] MEDS: MICONAZOLE NITRATE POWDER 43 GM EXT SCH ×2 (07:58→21:16)
[2021-07-29] MEDS: PREGABALIN 75 MG CAP PO SCH ×2 (08:00→21:16)
[2021-07-29] MEDS: INSULIN ASPART PER UNIT SC SCH ×5 (08:48→21:20)
[2021-07-29 09:00] LABS: Hemoglobin 13.4 g/dL (14.0-18.0); Mean Corpuscular Hemoglobin 30.7 pg (25-34); Mean Corpuscular Hgb Conc 32.7 g/dL (32-36); Mean Corpuscular Volume 93.8 fL (80-100); Platelet Count 154 K/uL (130-400); RDW Coefficient of Variation 14.2 % (11.5-14.5); RDW Standard Deviation 48.5 fL (36.4-46.3); Red Blood Count 4.37 M/uL (4.7-6.1); White Blood Count 5.71 K/uL (4.8-10.8)
[2021-07-29 09:21] LABS: BUN Creatinine Ratio 20.6 (10-20); Calcium 9.3 mg/dl (8.5-10.1); Creatinine Clr Calc Pharmacy 73.3 ml/min; Est GFR (African American) 63.9 ml/min; Est GFR (Non-African American) 55.2 ml/min; Magnesium 2.4 mg/dl (1.7-2.4); Phosphorus 2.5 mg/dl (2.5-4.9); Potassium 3.6 mmol/L (3.5-5.1)
[2021-07-29] MEDS ORDERED: INSULIN GLARGINE SOLOSTAR 100 UNITS/ML 3 ML PEN SC SCH (10:00)
--- NOTE | 2021-07-29 11:54 | Pharmacy Report ---
Pharmacy Glycemic Short Note 2 - Date of Service July 29, 2021 - Glycemic Short BSG Results (Last 24 hours): 07/29/21 08:03 Glucose 185 H OUTPATIENT ANTIDIABETIC REGIMEN: * U-500 80 units Qam and 35 units Qpm, dulaglutide * A1c 9.5% ASSESSMENT: 07/29: * Continues on insulin infusion. Plan discussed with primary team today. Will transition to SQ basal/bolus regimen with Lantus and Novolog in attempt to pr event recurrent low BSGs with U-500. * Based upon previous admissions, TDD insulin requirements ~ 120 units/day. Plan to administer 60 units of Lantus as a once daily dose with Novolog CF/CR 25/10. * Lantus 60 units X 1 now with lunchtime Novolog coverage (goal BSG 120- 150mg/dL), and overlap with insulin fusion ~ 2hours prior to discontinuing drip. 07/28: * Patient presenting with HHS/DKA - started on insulin infusion per protocol. Patient presenting from [facility] due to confusion/hyperglycemia/hypothermia/urinary incontinence. Insulin pump stopped on last admission due to multiple hypoglycemic episodes outpatient and concern for it to not be working properly. Per notes, patient had been managing his insulin doses at assisted living facility. He [facility] [place] for DM management * Continues on insulin drip this morning, anion gap closed. Insulin drip running at 5 units/hr currently, however drip rates not stable - will give 60 units of NPH this afternoon to be given with insulin drip. * Likely drip will remain ongoing for now, will consider resuming home U-500 dose in the AM if drip rates stable and when we have a better idea of insulin needs. PLAN FOR INPATIENT GLYCEMIC CONTROL * Basal insulin * Lantus 60 units daily * insulin infusion * Bolus insulin * Novolog ACHS * CF/CR: 25/10 * Goal BS-150mg/dL PLAN FOR DISCHARGE: * tbd
[2021-07-29] MEDS ORDERED: [UNRECOGNIZED DRUG - REMARK] ONE ×2 (13:00→14:00)
[2021-07-29] MEDS: INSULIN REGULAR 250 UNITS in SODIUM CHLORIDE 0.9% 247.5 ML IV SCH (14:38)
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
[2021-07-29] MEDS: ATORVASTATIN 10 MG TAB PO SCH (20:05)
[2021-07-29] MEDS: DIGOXIN 0.125 MG TAB PO SCH (20:05)
[2021-07-30] MEDS: INSULIN ASPART PER UNIT SC SCH ×6 (00:13→21:02)
[2021-07-30] MEDS: LEVOTHYROXINE SODIUM 50 MCG TABLET PO SCH (05:38)
[2021-07-30] MEDS: LEVOTHYROXINE SODIUM 200 MCG TABLET PO SCH (05:38)
[2021-07-30 07:08] LABS: Basophils # (auto) 0.04 K/uL (0-0.2); Basophils % (auto) 0.6 %; Eosinophils # (auto) 0.19 K/uL (0-0.5); Eosinophils % (auto) 3.1 %; Hematocrit (blood only) 43.1 % (42-52); Hemoglobin 14.2 g/dL (14.0-18.0); Immature Granulocytes # (auto) 0.02 K/uL (0.00-0.02); Immature Granulocytes % (auto) 0.3 %; Lymphocytes # (auto) 1.26 K/uL (1.2-3.4); Lymphocytes % (auto) 20.4 %; Mean Corpuscular Hemoglobin 30.7 pg (25-34); Mean Corpuscular Hgb Conc 32.9 g/dL (32-36); Mean Corpuscular Volume 93.3 fL (80-100); Mean Platelet Volume 11.9 fL (7.4-10.4); Monocytes # (auto) 0.49 K/uL (0.11-0.59); Monocytes % (auto) 7.9 %; Neutrophils # (auto) 4.18 K/uL (1.4-6.5); Neutrophils % (auto) 67.7 %; Platelet Count 144 K/uL (130-400); RDW Coefficient of Variation 14.1 % (11.5-14.5); RDW Standard Deviation 48.2 fL (36.4-46.3); Red Blood Count 4.62 M/uL (4.7-6.1); White Blood Count 6.18 K/uL (4.8-10.8)
[2021-07-30 07:33] LABS: BUN Creatinine Ratio 16.9 (10-20); Calcium 9.6 mg/dl (8.5-10.1); Creatinine Clr Calc Pharmacy 67.6 ml/min; Potassium 3.8 mmol/L (3.5-5.1)
[2021-07-30] MEDS: oxyCODONE HCL IR 5 MG TAB (IMMEDIATE RELEASE) PO PRN (07:47)
[2021-07-30] MEDS: INSULIN GLARGINE SOLOSTAR 100 UNITS/ML 3 ML PEN SC SCH (08:50)
[2021-07-30] MEDS: CEROVITE ADV FORMULA TAB PO SCH (08:50)
[2021-07-30] MEDS: METOPROLOL SUCC 50MG EXT REL TAB PO SCH ×2 (08:50→20:56)
[2021-07-30] MEDS: PREGABALIN 75 MG CAP PO SCH ×2 (08:51→20:56)
[2021-07-30] MEDS: GABAPENTIN 300 MG CAP PO SCH ×3 (08:51→20:56)
[2021-07-30] MEDS: APIXABAN 5 MG TABLET PO SCH ×2 (08:51→20:56)
[2021-07-30] MEDS: DULoxetine HCL 60 MG CAP PO SCH (08:51)
[2021-07-30] MEDS: MICONAZOLE NITRATE POWDER 43 GM EXT SCH ×2 (08:52→21:01)
[2021-07-30] MEDS: ASPIRIN 81 MG ECTAB PO SCH (08:52)
[2021-07-30] MEDS: allopurinoL 300 MG TAB PO SCH (08:52)
[2021-07-30] MEDS: buPROPion XL 150 MG TABCR PO SCH (08:52)
[2021-07-30] MEDS: PANTOprazole 40 MG TAB PO SCH (08:52)
[2021-07-30] MEDS ORDERED: INSULIN GLARGINE SOLOSTAR 100 UNITS/ML 3 ML PEN SC SCH (09:00)
[2021-07-30] MEDS: CEFEPIME 2,000 MG in SYRINGE 0 ML IV SCH (11:23)
--- NOTE | 2021-07-30 13:06 | Pharmacy Report ---
Pharmacy Glycemic Short Note 2 - Date of Service July 30, 2021 - Glycemic Short BSG Results (Last 24 hours): 07/30/21 06:32 Glucose 234 H OUTPATIENT ANTIDIABETIC REGIMEN: * U-500 80 units Qam and 35 units Qpm, dulaglutide * A1c 9.5% ASSESSMENT: 07/30/21: * Mr Andujar has been hyperglycemic since coming off of the insulin infusion yesterday afternoon. * Lantus increased 25% this morning, but despite this increase and aggressive Novolog dosing, patient's BSGs have continued to rise today. * If better glycemic control cannot be met with SQ insulin by this evening, will need to consider restarting the IV insulin infusion. 07/29: * Continues on insulin infusion. Plan discussed with primary team today. Will transition to SQ basal/bolus regimen with Lantus and Novolog in attempt to prevent recurrent low BSGs with U-500. * Based upon previous admissions, TDD insulin requirements ~ 120 units/day. Plan to administer 60 units of Lantus as a once daily dose with Novolog CF/CR 25/10. * Lantus 60 units X 1 now with lunchtime Novolog coverage (goal BSG 120- 150mg/dL), and overlap with insulin fusion ~ 2hours prior to discontinuing drip. 07/28: * Patient presenting with HHS/DKA - started on insulin infusion per protocol. Patient presenting from [facility] due to confusion/hyperglycemia/hypothermia/urinary incontinence. Insulin pump stopped on last admission due to multiple hypoglycemic episodes outpatient and concern for it to not be working properly. Per notes, patient had been managing his insulin doses at assisted living facility. He follows [facility] [place] for DM management * Continues on insulin drip this morning, anion gap closed. Insulin drip running at 5 units/hr currently, however drip rates not stable - will give 60 units of NPH this afternoon to be given with insulin drip. * Likely drip will remain ongoing for now, will consider resuming home U-500 dose in the AM if drip rates stable and when we have a better idea of insulin needs. PLAN FOR INPATIENT GLYCEMIC CONTROL * Basal insulin * Lantus 75 units SQ daily * Will consider restarting insulin infusion this evening if hyperglycemia persists. * Bolus insulin * NovoLog per scale ACHS or Q6hrs while NPO * Goal Range: Low 120 mg/dL - High 150 mg/dL * Correction Factor: 15 mg/dL/unit * Nutritional / Prandial insulin per carb ratio of 1 unit per 4 grams CHO consumed PLAN FOR DISCHARGE: * A1c: 9.5% -- this indicates sub-optimal glycemic control. Reasonable goal mi ght be ~7-8% for 71yo gentleman with multiple comorbidities. * Based on patient's total daily insulin use, U-500 might not be the right choice for him. * Consider switching to Lantus (+/- NovoLog) on discharge? More to follow as admission progresses.
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
[2021-07-30] MEDS: FUROSEMIDE 80 MG TAB PO SCH (18:19)
[2021-07-30] MEDS: DIGOXIN 0.125 MG TAB PO SCH (20:56)
[2021-07-30] MEDS: ATORVASTATIN 10 MG TAB PO SCH (20:56)
[2021-07-30] MEDS: CEFDINIR 300 MG CAP PO SCH (20:56)
[2021-07-30] MEDS: POTASSIUM CHLORIDE CRTAB 20 MEQ TABCR PO SCH (20:56)
[2021-07-31] MEDS: LEVOTHYROXINE SODIUM 200 MCG TABLET PO SCH (05:16)
[2021-07-31] MEDS: LEVOTHYROXINE SODIUM 50 MCG TABLET PO SCH (05:16)
[2021-07-31] MEDS ORDERED: SPIRONOLACTONE 25 MG TAB PO SCH (09:00)
[2021-07-31] MEDS: CEROVITE ADV FORMULA TAB PO SCH (09:09)
[2021-07-31] MEDS: allopurinoL 300 MG TAB PO SCH (09:09)
[2021-07-31] MEDS: METOPROLOL SUCC 50MG EXT REL TAB PO SCH (09:09)
[2021-07-31] MEDS: buPROPion XL 150 MG TABCR PO SCH (09:10)
[2021-07-31] MEDS: DULoxetine HCL 60 MG CAP PO SCH (09:10)
[2021-07-31] MEDS: APIXABAN 5 MG TABLET PO SCH (09:10)
[2021-07-31] MEDS: CEFDINIR 300 MG CAP PO SCH (09:10)
[2021-07-31] MEDS: FUROSEMIDE 80 MG TAB PO SCH (09:11)
[2021-07-31] MEDS: PANTOprazole 40 MG TAB PO SCH (09:11)
[2021-07-31] MEDS: ASPIRIN 81 MG ECTAB PO SCH (09:11)
[2021-07-31] MEDS: PREGABALIN 75 MG CAP PO SCH (09:11)
[2021-07-31] MEDS: POTASSIUM CHLORIDE CRTAB 20 MEQ TABCR PO SCH (09:11)
[2021-07-31] MEDS: INSULIN GLARGINE SOLOSTAR 100 UNITS/ML 3 ML PEN SC SCH (09:16)
[2021-07-31] MEDS: INSULIN ASPART PER UNIT SC SCH ×2 (09:16→12:15)
[2021-07-31] MEDS: COLCHICINE 0.6 MG TAB PO SCH (09:17)
[2021-07-31] MEDS: GABAPENTIN 300 MG CAP PO SCH (09:17)
[2021-07-31] MEDS: MICONAZOLE NITRATE POWDER 43 GM EXT SCH (09:27)
--- NOTE | 2021-07-31 09:54 | Pharmacy Report ---
Pharmacy Glycemic Short Note 2 - Date of Service July 31, 2021 - Glycemic Short BSG Results (Last 24 hours): 07/29/21 07/29/21 07/30/21 17:42 20:48 00:10 POC Glucose 195 H 236 H 205 H 07/30/21 07/30/21 07/30/21 00:31 03:55 12:10 POC Glucose 192 H 184 H 439 H* 07/30/21 07/30/21 07/30/21 12:12 17:08 20:47 POC Glucose 459 H* 243 H 154 H 07/31/21 07:58 POC Glucose 254 H OUTPATIENT ANTIDIABETIC REGIMEN: * U-500 80 units Qam and 35 units Qpm * A1c 9.5% ASSESSMENT: 07/31: * Patient received total 167 units of insulin yesterday; 75 units basal + 92 units bolus. * Fasting BSG today = 254 mg/dl. Yesterday it was 217 mg/dl which trended up to 459 mg/dl at lunch then trended down to 154 mg/dl by HS. So, added 20 units of Lantus at HS in addition to 75 units in AM. Patient had previously been on total 115 units of basal insulin (U-500), split up BID previously. * Expect BSGs to trend up again at lunch today, so tightened Novolog parameters this AM. CF/CR loosened up at lunch. 07/30/21: * Mr Andujar has been hyperglycemic since coming off of the insulin infusion yesterday afternoon. * Lantus increased 25% this morning, but despite this increase and aggressive Novolog dosing, patient's BSGs have continued to rise today. * If better glycemic control cannot be met with SQ insulin by this evening, will need to consider restarting the IV insulin infusion. 07/29: * Continues on insulin infusion. Plan discussed with primary team today. Will transition to SQ basal/bolus regimen with Lantus and Novolog in attempt to prevent recurrent low BSGs with U-500. * Based upon previous admissions, TDD insulin requirements ~ 120 units/day. Plan to administer 60 units of Lantus as a once daily dose with Novolog CF/CR 25/10. * Lantus 60 units X 1 now with lunchtime Novolog coverage (goal BSG 120- 150mg/dL), and overlap with insulin fusion ~ 2hours prior to discontinuing drip. 07/28: * Patient presenting with HHS/DKA - started on insulin infusion per protocol. Patient presenting from [facility] due to confusion/hyperglycemia/hypothermia/urinary incontinence. Insulin pump stopped on last admission due to multiple hypoglycemic episodes outpatient and concern for it to not be working properly. Per notes, patient had been managing his insulin doses at assisted living facility. He follows [facility] clinic in [place] for DM management * Continues on insulin drip this morning, anion gap closed. Insulin drip running at 5 units/hr currently, however drip rates not stable - will give 60 units of NPH this afternoon to be given with insulin drip. * Likely drip will remain ongoing for now, will consider resuming home U-500 dose in the AM if drip rates stable and when we have a better idea of insulin needs. PLAN FOR INPATIENT GLYCEMIC CONTROL * Basal insulin * Lantus 75 units SQ QAM and 20 units SQ HS * Bolus insulin * NovoLog per scale ACHS or Q6hrs while NPO * Goal Range: Low 120 mg/dL - High 150 mg/dL * Correction Factor: 15 mg/dL/unit * Nutritional / Prandial insulin per carb ratio of 1 unit per 4 grams CHO consumed PLAN FOR DISCHARGE: * A1c: 9.5% -- this indicates sub-optimal glycemic control. Reasonable goal might be ~7-8% for 71yo gentleman with multiple comorbidities. * Based on patient's total daily insulin use, U-500 might not be the right choice for him. * Recommendations: Lantus 75 units SQ QAM and 20 units SQ HS Novolog 5 units before meals and at HS with BSG checks. Add sliding scale to the 5 units as below: - Blood Sugar 70-150 administer = 0 units - Blood Sugar 151-200 administer = 5 units - Blood Sugar 201-250 administer = 7 units - Blood Sugar 251-300 administer = 10 units - Blood Sugar 301-350 administer = 13 units - Blood Sugar 351-400 administer = 15 units - Blood Sugar >400 administer = 20 units and call MD * Close outpatient follow up with [facility] or Endocrinology office for dose adjustment.
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
[2021-07-31] MEDS ORDERED: INSULIN GLARGINE SOLOSTAR 100 UNITS/ML 3 ML PEN SC SCH (21:00)
== END 2021-07-31 12:45 | DRG 637 ==
LOC: ED 16:16 → SUATTDRO 22:24 → 3N 22:24

== ENCOUNTER 2021-08-10 10:48 | Inpatient (IN) ==
[2021-08-10] MEDS ORDERED: CEFEPIME 2,000 MG/20 ML VIAL IV STA (11:06)
--- NOTE | 2021-08-10 11:12 | Emergency Department Note ---
Impression & Plan COVID-19, Hypoxemia, Cellulitis of hand, left ED Provider Note Name: CECILE KENDALL Age: 71 Sex: M Arrives Via: Walk-In Informant: Patient, Family ED Provider: Christopher Mcmillan MD Chief Complaint: Illness Impression: As per impression as above Medical Decision Makin-year-old male with an extensive past medical history. Has had multiple recent admissions for sepsis and hyperglycemia amongst others. Recently has been back in nursing facility where over the last few days worsening weakness and fatigue. He did have Covid testing yesterday at the facility which is not back yet. Patient arrived via private vehicle and was in significant shortness of breath and illness. Nursing notes patient with hypotension and hypoxia and looking ill thus he was rushed to critical care bay where I evaluated him immediately on their arrival. Patient appears pale and ill but with laying back and in bed he did return quickly. Repeat sats are low and gradually started trending down thus requiring nasal cannula O2. He has diffuse crackles on lung exam. Chest x-ray is nonspecific. I will note that I obtained cultures given his history and the cellulitis of his left hand. White blood cell count is not significantly elevated nor is his lactic acid. After the initial hypotension in the waiting room he does not have further hypotension and thus fluid resuscitation was held off given his history. As he is requiring nasal cannula oxygen and has Covid with likely symptoms starting the last few days it does seem reasonable to start steroids. After discussion with hospitalist they are comfortable with doing this and this brittle diabetic. After consulting with pharmacy we will start an insulin drip as well. Patient was made aware of this plan and is agreeable as is the family. Patient with multiple repeat evaluations and actual looks quite well laying in bed with nasal cannula oxygen. In addition of this he had burned his hand several days ago and has been developing a cellulitis on the left hand. There is no evidence of abscess nor tendon/deep structure infection at this time. Patient was given IV antibiotics for the cellulitis of his hand though I do not feel that he requires surgical evaluation nor imaging at this time. Prior Medical Record and Triage/Nursing Notes reviewed by Me Additional history obtained from chart and family Differentials:Infection, dehydration, metabolic abnormality, hypo/hyperglycemia, electrolyte disturbance, anemia, hypoxia, cardiac sources, intracerebral event, toxicologic, neurologic, as well as other pathologies. Vital Signs: reviewed and remarkable for hypoxia, hypotensive Interventions: Cefepime, daptomycin IV, Decadron IV, insulin infusion Labs:Reviewed and remarkable for positive Covid test, hyperglycemia Imaging:See Below EKG:Per My Interpretation: Indication Illness: 75 bpm, qtc 469 with afib with a bifascicular block and periodic paced beats as well as likely underlying flutter beats. No Ischemia. Compared to EKG 07/27/21, no significant changes. Consults:Dr Jong Pires Hospitalists Plan: Disposition:Hospitalization. Condition: fair History of Present Illness:71-year-old male arrives for evaluation of generalized weakness. Patient appears unwell to family when they went to visit him at [facility] this morning and thus brought him to the ER. Patient notes he has been feeling quite weak and tired the last 3 days. Associated with multiple rounds of diarrhea nonbloody nonblack. He states he feels mildly short of breath and generally fatigued. He did burn his left middle finger about 4 days ago and since then it has blistered and now his entire left hand is red. Notes some moderate pain in the hand and fingertips but no difficulty making a fist other than with the finger. Denies any chest pain, shortness of breath, syncope, headache, runny nose, rashes other than the left hand, abdominal pain, back pain, leg swelling beyond baseline, other symptoms. He has had no falls, trauma, injuries. There were no medications prior to arrival. Nothing seems to make symptoms better though any exertion he gets severely weak with doing. Patient does have a history of MRSA, DKA, sepsis amongst multiple other medical comorbidities. ROS: See above HPI for pertinent positives & negatives. A total of 10 systems reviewed and were otherwise negative. Past Medical History:See Below Past Surgical History:See Below Family History:See Below Social History:See Below Home Medications:See Below Allergies:nkda Vitals:Blood Pressure: 87/50, Pulse 90, RR 12, T 36.8C, O2 76% on RA Physical Exam: GENERAL: Patient is tired/pale appearing and in mild distress. Overweight EYES: No scleral icterus, unremarkable pupils. Pale sclera ENT: Mucous membranes moist, no nasal congestion. NECK: No masses appreciated, nomeningismus, trachea is midline. RESPIRATORY: Diffuse mild crackles. No dyspnea. Clear to auscultation and equal bilaterally. No wheeze, no rhonchi. CARDIOVASCULAR: Regular rate and rhythm.No murmurs, rubs, gallops appreciated. GASTROINTESTINAL: Abdomen soft, non-tender, no peritonitis.Bowel sounds positive.No masses appreciated. BACK: No midline tenderness, no CVA tenderness EXTREMITIES: Blistered burn to left middle distal digit. Erythema/swelling of left middling finger, left index finger and entire left hand to wrist. Normal motion all extremities, no cyanosis, no edema. NEUROLOGIC: Alert and oriented though tired and a bit distant, no acute motor or sensory deficits, no focal weakness, cranial nerves grossly intact. SKIN: No rash, no jaundice, no diaphoresis. PSYCH: Appropriate GCS: 15 ED Course: Times/Reassessments: Patient appears much better with just getting him to bed and laying back slightly. Blood pressure on repeat is normalizing and he is breathing comfortably on 2 L nasal cannula. Family and patient are comfortable with hospitalization for management. Critical Care: I have personally spent 38 minutes of critical care time in the direct management of this patient. Brittle diabetic with acute COVID-19 and hypoxia requiring NC O2, IV steroids and an insulin drip. this was a life/limb thr eatening event. This 38 minutes is in excess of all separately billable procedures. Christopher Mcmillan MD Past Med/Surg History Medical History Abnormal chest x-ray 06/18/20 right hilar opacity, f/u recommended Anticoagulant long-term use Arthritis Atrial fibrillation paroxysmal Atrial flutter Bifascicular block CAD (coronary artery disease) Cardiac pacemaker in situ Cardiomyopathy Chronic anticoagulation Chronic diastolic CHF (congestive heart failure) Chronic venous insufficiency CKD (chronic kidney disease) stage 3, GFR 30-59 ml/min Claustrophobia Closed fracture of thyroid cartilage COPD, moderate Depression Diabetes mellitus, type 2 insulin pump Fatty liver Gout Hyperlipidemia Hypertension Hypothyroidism Iatrogenic pulmonary embolism Interstitial lung disease Morbid obesity MRSA infection Nephrolithiasis Nocturnal hypoxemia SALAS (obstructive sleep apnea) Osteoarthritis Paroxysmal atrial fibrillation Prolonged QT interval Pulmonary embolism B/L- 5+ years ago Sarcoidosis possible- evaluated by pulmonary; felt no active sarcoidosis and would not merit steroid therapy given weight/diabetic state. 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 "prior EF of 25% while in aflutter, subsequently normal in NSR" Surgical History H/O cardiac radiofrequency ablation H/O prior ablation treatment History of arthroscopic knee surgery History of bronchoscopy History of cataract surgery local anesthesia only per pt History of cholecystectomy History of extraction of renal calculus History of lung surgery thoracoscopy, right VATS, wedge resection History of umbilical hernia repair Hx of carpal tunnel repair Pacemaker Implanted 02/2017 secondary to Sinus node dysfunction/tachy sherry syndrome/3rd degree AVB [employer] Pacer check 12/24/17 Status post incision and drainage Family History Mother Cancer Social History Smoking Status: Never smoker Second Hand Exposure: No; Hx Alcohol Use: No Hx Substance Use: No Preferred Language: Gambian Communication Ability: Effective Visual Impairment: No Limitations Hearing Ability: Normal Optical Laboratory Manager Required: No Beliefs That Will Affect Care: None marital status: Current Living Situation: Alone and Personal Care Facility current occupational status: retired How many Children do You have: 2 Feels Safe at Home: Yes Diet Comment: FLUID RESTRICTION during the past year weight has: other Assistive Devices: Walker Allergies Allergies Allergy/AdvReac Type Severity Reaction Status Date / Time No Known Allergies Allergy Verified 08/10/21 14:21 Home Meds Home Medications Medication Instructions Recorded Confirmed digoxin 125 mcg (0.125 mg) tablet 0.125 mg PO QPM #0 07/13/16 08/10/21 aspirin 81 mg tablet,delayed 81 mg PO QAM 05/11/18 08/10/21 release (Adult Low Dose Aspirin) levothyroxine 50 mcg tablet 50 mcg PO QAM 06/24/18 08/10/21 duloxetine 60 mg capsule,delayed 60 mg PO QAM 08/31/18 08/10/21 release cholecalciferol (vitamin D3) 50 2,000 units PO QAM 05/13/19 08/10/21 mcg (2,000 unit) capsule allopurinol 300 mg tablet 300 mg PO QAM 05/25/19 08/10/21 levothyroxine 200 mcg tablet 200 mcg PO QAM #0 tab 05/25/19 08/10/21 omeprazole 20 mg capsule,delayed 20 mg PO QAM 05/25/19 08/10/21 release potassium chloride 20 mEq 20 meq PO BID 07/12/19 08/10/21 tablet,extended release(part/cryst) (Klor-Con M) albuterol sulfate 90 mcg/actuation 2 puffs INH QID PRN 12/14/19 08/10/21 aerosol inhaler atorvastatin 20 mg tablet 20 mg PO HS 12/14/19 08/10/21 meclizine 12.5 mg tablet 12.5 mg PO TID PRN 12/14/19 08/10/21 bupropion HCl 150 mg 24 hr tablet, 150 mg PO QAM 02/13/20 08/10/21 extended release metoprolol succinate 100 mg 150 mg PO BID 02/13/20 08/10/21 tablet,extended release 24 hr oxybutynin chloride 10 mg 10 mg PO DAILY 03/29/20 08/10/21 tablet,extended release 24 hr (Ditropan XL) multivitamin with minerals 1 tab PO DAILY 06/19/20 08/10/21 (Multiple Vitamin-Minerals) nitroglycerin 0.4 mg sublingual 0.4 mg SUBLINGUAL UD PRN 06/19/20 08/10/21 tablet sennosides 8.6 mg-docusate sodium 1 tab-cap PO BID 07/16/20 08/10/21 50 mg tablet (Senna with Docusate Sodium) furosemide 80 mg tablet 80 mg PO BID 11/01/20 08/10/21 magnesium oxide 400 mg PO DAILY 11/01/20 08/10/21 metolazone 2.5 mg tablet 2.5 mg PO DAILY PRN 11/01/20 08/10/21 spironolactone 25 mg tablet 25 mg PO DAILY 11/01/20 08/10/21 (Aldactone) nystatin 100,000 unit/gram topical 1 applic TOPICAL BID 03/04/21 08/10/21 powder apixaban 5 mg tablet 5 mg PO BID 07/11/21 08/10/21 gabapentin 300 mg capsule 300 mg PO TID 07/27/21 08/10/21 acetaminophen 325 mg tablet 650 mg PO Q4H PRN 08/10/21 08/10/21 insulin glargine 100 unit/mL (3 25 unit SC 08/10/21 08/10/21 mL) subcutaneous pen (Lantus Solostar U-100 Insulin) insulin glargine 100 unit/mL (3 80 unit SC DAILY 08/10/21 08/10/21 mL) subcutaneous pen (Lantus Solostar U-100 Insulin) insulin regular human 100 unit/mL 0 sliding scale dose SUBCUT ACHS 08/10/21 (3 mL) subcutaneous pen (Novolin R Flexpen) insulin regular human 100 unit/mL 10 unit SUBCUT TIDM 08/10/21 08/10/21 (3 mL) subcutaneous pen (Novolin R Flexpen) Previous Rx's Medication Instructions Recorded blood sugar diagnostic (Contour #50 ea 07/31/21 Next Test Strips) blood-glucose meter (Contour Next #1 ea 07/31/21 Glucose Meter) lancets (Microlet Lancet) #100 ea 07/31/21 Results & Data (ED) Vital Signs Vital Signs - 24 hr 08/10/21 10:56 08/10/21 11:05 08/10/21 11:10 Temperature 36.8 C Temperature Source Oral Pulse Rate 190 H 77 Pulse Rate [Finger] 85 Pulse Rate from SpO2 Sensor Respiratory Rate 14 12 28 H Blood Pressure 87/43 L 123/67 Blood Pressure [Left Arm] 127/71 Blood Pressure Mean 57 85 Blood Pressure Mean [Left Arm] 89 Pulse Oximetry 84 L 91 Oxygen Delivery Method Room Air Oxygen Flow Rate Sepsis Recent Fever Within 48 Hours No Sepsis New/Unexplained Change in Mental Status No Sepsis Action Taken by Nursing Physician Notified 08/10/21 11:15 08/10/21 11:30 08/10/21 12:00 Temperature Temperature Source Pulse Rate 73 73 72 Pulse Rate [Finger] Pulse Rate from SpO2 Sensor 74 75 Respiratory Rate 23 24 15 Blood Pressure 101/63 105/61 110/67 Blood Pressure [Left Arm] Blood Pressure Mean 75 75 81 Blood Pressure Mean [Left Arm] Pulse Oximetry 88 L 96 94 Oxygen Delivery Method Room Air Oxygen Flow Rate Sepsis Recent Fever Within 48 Hours Sepsis New/Unexplained Change in Mental Status Sepsis Action Taken by Nursing 08/10/21 12:30 Temperature Temperature Source Pulse Rate 66 Pulse Rate [Finger] Pulse Rate from SpO2 Sensor 66 Respiratory Rate 21 Blood Pressure 104/69 Blood Pressure [Left Arm] Blood Pressure Mean 80 Blood Pressure Mean [Left Arm] Pulse Oximetry 86 L Oxygen Delivery Method Nasal Cannula Oxygen Flow Rate 2 Sepsis Recent Fever Within 48 Hours Sepsis New/Unexplained Change in Mental Status Sepsis Action Taken by Nursing Laboratory Data Result diagrams: 08/10/21 11:15 08/10/21 11:15 Lab Results 08/10/21 08/10/21 08/10/21 Range/Units 11:15 11:15 11:15 WBC 6.19 (4.8-10.8) K/uL RBC 4.33 L (4.7-6.1) M/uL Hgb 13.4 L (14.0-18.0) g/dL Hct 41.6 L (42-52) % MCV 96.1 (80-100) fL MCH 30.9 (25-34) pg MCHC 32.2 (32-36) g/dL RDW Std Deviation 47.8 H (36.4-46.3) fL RDW Coeff of Baldo 13.5 (11.5-14.5) % Plt Count 224 (130-400) K/uL MPV 11.0 H (7.4-10.4) fL Immature Gran % (Auto) 0.2 % Neut % (Auto) 67.2 % Lymph % (Auto) 18.3 % Gosper % (Auto) 12.0 % Eos % (Auto) 2.1 % Baso % (Auto) 0.2 % Neut # (Auto) 4.17 (1.4-6.5) K/uL Lymph # (Auto) 1.13 L (1.2-3.4) K/uL Gosper # (Auto) 0.74 H (0.11-0.59) K/uL Eos # (Auto) 0.13 (0-0.5) K/uL Baso # (Auto) 0.01 (0-0.2) K/uL Immature Gran # (Auto) 0.01 (0.00-0.02) K/uL PT 11.3 (9.0-12.0) Seconds INR 1.1 (0.9-1.1) Sodium 137 (136-145) mmol/L Potassium 4.5 (3.5-5.1) mmol/L Chloride 99 (98-107) mmol/L Carbon Dioxide 29 (21-32) mmol/L Anion Gap 9 (3-11) BUN 30 H (6-23) mg/dl Creatinine 1.42 H (0.6-1.4) mg/dl Est Cr Clr Drug Dosing 67.7 ml/min Est GFR ( Amer) 58.0 ml/min Est GFR (Non-Af Amer) 50.0 ml/min BUN/Creatinine Ratio 21.1 H (10-20) Glucose 247 H (70-99(Fasting)) mg/dl POC Glucose (70-99) mg/dl Lactate (0.4-2.0) mmol/L Calcium 9.2 (8.5-10.1) mg/dl Magnesium 1.9 (1.7-2.4) mg/dl Total Bilirubin 1.6 H (0.2-1.0) mg/dl Direct Bilirubin 0.4 H (0-0.2) mg/dl AST 25 (13-39) U/L ALT 18 (7-52) U/L Alkaline Phosphatase 144 H (34-104) U/L Troponin I < 0.03 (0-0.04) ng/ml Total Protein 7.1 (6.0-8.3) gm/dl Albumin 3.5 (3.4-5.0) gm/dl Lipase 7 L (11-82) U/L Procalcitonin (0-0.5) ng/ml SARS-CoV-2, RNA, NAAT (NEGATIVE) Blood Type Antibody Screen 08/10/21 08/10/21 08/10/21 Range/Units 11:15 11:34 11:42 WBC (4.8-10.8) K/uL RBC (4.7-6.1) M/uL Hgb (14.0-18.0) g/dL Hct (42-52) % MCV (80-100) fL MCH (25-34) pg MCHC (32-36) g/dL RDW Std Deviation (36.4-46.3) fL RDW Coeff of Baldo (11.5-14.5) % Plt Count (130-400) K/uL MPV (7.4-10.4) fL Immature Gran % (Auto) % Neut % (Auto) % Lymph % (Auto) % Gosper % (Auto) % Eos % (Auto) % Baso % (Auto) % Neut # (Auto) (1.4-6.5) K/uL Lymph # (Auto) (1.2-3.4) K/uL Gosper # (Auto) (0.11-0.59) K/uL Eos # (Auto) (0-0.5) K/uL Baso # (Auto) (0-0.2) K/uL Immature Gran # (Auto) (0.00-0.02) K/uL PT (9.0-12.0) Seconds INR (0.9-1.1) Sodium (136-145) mmol/L Potassium (3.5-5.1) mmol/L Chloride (98-107) mmol/L Carbon Dioxide (21-32) mmol/L Anion Gap (3-11) BUN (6-23) mg/dl Creatinine (0.6-1.4) mg/dl Est Cr Clr Drug Dosing ml/min Est GFR ( Amer) ml/min Est GFR (Non-Af Amer) ml/min BUN/Creatinine Ratio (10-20) Glucose (70-99(Fasting)) mg/dl POC Glucose (70-99) mg/dl Lactate 1.6 (0.4-2.0) mmol/L Calcium (8.5-10.1) mg/dl Magnesium (1.7-2.4) mg/dl Total Bilirubin (0.2-1.0) mg/dl Direct Bilirubin (0-0.2) mg/dl AST (13-39) U/L ALT (7-52) U/L Alkaline Phosphatase (34-104) U/L Troponin I (0-0.04) ng/ml Total Protein (6.0-8.3) gm/dl Albumin (3.4-5.0) gm/dl Lipase (11-82) U/L Procalcitonin < 0.05 (0-0.5) ng/ml SARS-CoV-2, RNA, NAAT POSITIVE A* (NEGATIVE) Blood Type Antibody Screen 08/10/21 08/10/21 Range/Units 11:42 13:32 WBC (4.8-10.8) K/uL RBC (4.7-6.1) M/uL Hgb (14.0-18.0) g/dL Hct (42-52) % MCV (80-100) fL MCH (25-34) pg MCHC (32-36) g/dL RDW Std Deviation (36.4-46.3) fL RDW Coeff of Baldo (11.5-14.5) % Plt Count (130-400) K/uL MPV (7.4-10.4) fL Immature Gran % (Auto) % Neut % (Auto) % Lymph % (Auto) % Gosper % (Auto) % Eos % (Auto) % Baso % (Auto) % Neut # (Auto) (1.4-6.5) K/uL Lymph # (Auto) (1.2-3.4) K/uL Gosper # (Auto) (0.11-0.59) K/uL Eos # (Auto) (0-0.5) K/uL Baso # (Auto) (0-0.2) K/uL Immature Gran # (Auto) (0.00-0.02) K/uL PT (9.0-12.0) Seconds INR (0.9-1.1) Sodium (136-145) mmol/L Potassium (3.5-5.1) mmol/L Chloride (98-107) mmol/L Carbon Dioxide (21-32) mmol/L Anion Gap (3-11) BUN (6-23) mg/dl Creatinine (0.6-1.4) mg/dl Est Cr Clr Drug Dosing ml/min Est GFR ( Amer) ml/min Est GFR (Non-Af Amer) ml/min BUN/Creatinine Ratio (10-20) Glucose (70-99(Fasting)) mg/dl POC Glucose 232 H (70-99) mg/dl Lactate (0.4-2.0) mmol/L Calcium (8.5-10.1) mg/dl Magnesium (1.7-2.4) mg/dl Total Bilirubin (0.2-1.0) mg/dl Direct Bilirubin (0-0.2) mg/dl AST (13-39) U/L ALT (7-52) U/L Alkaline Phosphatase (34-104) U/L Troponin I (0-0.04) ng/ml Total Protein (6.0-8.3) gm/dl Albumin (3.4-5.0) gm/dl Lipase (11-82) U/L Procalcitonin (0-0.5) ng/ml SARS-CoV-2, RNA, NAAT (NEGATIVE) Blood Type O Positive Antibody Screen NEGATIVE Administered Medications Insulin Human Regular 250 (units/ Sodium Chloride) 250 mls @ 3.4 mls/hr IV .Q24H OFE; Protocol Stop: 09/09/21 13:14 Last Admin: 08/10/21 13:30 Dose: 3.4 units/hr, 3.4 mls/hr Documented by: [id number] Cosigned by: [id number] Discontinued Medications Dexamethasone Sodium Phosphate (DexamethasonePf 10 Mg/Ml Vial) 10 mg IV NOW ONE Stop: 08/10/21 12:59 Last Admin: 08/10/21 13:35 Dose: 10 mg Documented by: [id number] Cefepime HCl (Maxipime) 2,000 mg in 20 mls @ 5 mls/min IV NOW STA; Protocol Stop: 08/10/21 11:09 Last Admin: 08/10/21 11:48 Dose: 5 mls/min Documented by: [id number] Daptomycin 575 mg/ Syringe 11.5 mls @ 5.75 mls/min IV NOW ONE; Protocol Stop: 08/10/21 12:12 Last Admin: 08/10/21 13:30 Dose: 5.75 mls/min Documented by: [id number] Imaging Data Radiologist's Impression: Chest X-Ray 08/10/21 11:06 XR chest 1V portable HISTORY: 71 years-old Male sepsis acute sepsis COMPARISON: Chest radiograph 07/27/2021 TECHNIQUE: Portable AP view of the chest FINDINGS: Cardiac silhouette. Left subclavian pacer. No pneumothorax, large pleural effusion or lobar airspace consolidation. Unchanged interstitial coarsening, most pronounced within the mid to lower lung zones. Degenerative changes of the shoulders and spine. IMPRESSION: 1. Cardiomegaly without acute process. 2. Chronic interstitial coarsening. ACT 112: Negative or not required by law. The above report was generated using voice recognition software. It may contain grammatical, syntax or spelling errors. Electronically signed by: Bartolome Menchaca M.D. 08/10/2021 12:11 PM Discharge Plan Visit Data Chief Complaint: Infection Stated Complaint: INFECTION IN FINGER ON LEFT HAND ED Provider: Christopher Mcmillan Discharge Problem: COVID-19, Hypoxemia, Cellulitis of hand, left Forms Stand Alone Forms: [facility] Prescriptions Prescriptions: No Action aspirin [Adult Low Dose Aspirin] 81 mg tablet,delayed release (DR/EC) 81 mg PO QAM RF: 0 duloxetine 60 mg capsule,delayed release(DR/EC) 60 mg PO QAM RF: 0 cholecalciferol (vitamin D3) 2,000 unit capsule 2,000 units PO QAM RF: 0 oxybutynin chloride [Ditropan XL] 10 mg tablet extended release 24hr 10 mg PO DAILY RF: 0 digoxin 125 mcg Tablet 0.125 mg PO QPM Qty: 0 RF: 0 levothyroxine 200 mcg tablet 200 mcg PO QAM Qty: 0 RF: 0 allopurinol 300 mg tablet 300 mg PO QAM RF: 0 omeprazole 20 mg capsule,delayed release(DR/EC) 20 mg PO QAM RF: 0 atorvastatin 20 mg tablet 20 mg PO HS RF: 0 meclizine 12.5 mg tablet 12.5 mg PO TID PRN (Reason: headaches) RF: 0 albuterol sulfate 90 mcg/actuation HFA aerosol inhaler 2 puffs INH QID PRN (Reason: Shortness Of Breath Or Wheezing) RF: 0 levothyroxine 50 mcg tablet 50 mcg PO QAM RF: 0 metoprolol succinate 100 mg tablet extended release 24 hr 150 mg PO BID RF: 0 bupropion HCl 150 mg tablet extended release 24 hr 150 mg PO QAM RF: 0 potassium chloride [Klor-Con M20] 20 mEq tablet,ER particles/crystals 20 meq PO BID RF: 0 nitroglycerin 0.4 mg tablet, sublingual 0.4 mg sublingual UD PRN (Reason: Chest Pain) RF: 0 Multiple Vitamin-Minerals Tablet 1 tab PO DAILY RF: 0 sennosides-docusate sodium [Senna with Docusate Sodium] 8.6-50 mg Tablet 1 tab-cap PO BID RF: 0 nystatin 100,000 unit/gram Powder 1 applic TOPICAL BID RF: 0 acetaminophen 325 mg Tablet 650 mg PO Q4H PRN (Reason: pain) RF: 0 Novolin R Flexpen 100 unit/mL (3 mL) Insulin Pen 0 sliding scale dose subcut ACHS RF: 0 Novolin R Flexpen 100 unit/mL (3 mL) Insulin Pen 10 unit SUBCUT TIDM RF: 0 Lantus Solostar U-100 Insulin 100 unit/mL (3 mL) insulin pen 80 unit SC DAILY RF: 0 Lantus Solostar U-100 Insulin 100 unit/mL (3 mL) insulin pen 25 unit SC HS RF: 0 metolazone 2.5 mg Tablet 2.5 mg PO DAILY PRN (Reason: WT GAIN 3#/24 HRS OR 5#/48 HRS.) RF: 0 magnesium oxide 400 mg magnesium Tablet 400 mg PO DAILY RF: 0 spironolactone [Aldactone] 25 mg tablet 25 mg PO DAILY RF: 0 furosemide 80 mg tablet 80 mg PO BID RF: 0 apixaban 5 mg Tablet 5 mg PO BID RF: 0 gabapentin 300 mg capsule 300 mg PO TID RF: 0 (DME) blood-glucose meter [Contour Next Glucose Meter] Kit See Rx Instructions .Route Qty: 1 RF: 0 (DME) Contour Next Test Strips Strip See Rx Instructions .Route Qty: 50 RF: 3 (DME) lancets [Microlet Lancet] Misc See Rx Instructions .Route Qty: 100 RF: 1 Referrals Referrals: Pura Willingham MD [Primary Care Provider] -
[2021-08-10 11:37] LABS: Basophils # (auto) 0.01 K/uL (0-0.2); Basophils % (auto) 0.2 %; Eosinophils # (auto) 0.13 K/uL (0-0.5); Eosinophils % (auto) 2.1 %; Hematocrit (blood only) 41.6 % (42-52); Hemoglobin 13.4 g/dL (14.0-18.0); Immature Granulocytes # (auto) 0.01 K/uL (0.00-0.02); Immature Granulocytes % (auto) 0.2 %; Lymphocytes # (auto) 1.13 K/uL (1.2-3.4); Lymphocytes % (auto) 18.3 %; Mean Corpuscular Hemoglobin 30.9 pg (25-34); Mean Corpuscular Hgb Conc 32.2 g/dL (32-36); Mean Corpuscular Volume 96.1 fL (80-100); Monocytes # (auto) 0.74 K/uL (0.11-0.59); Neutrophils # (auto) 4.17 K/uL (1.4-6.5); Neutrophils % (auto) 67.2 %; Platelet Count 224 K/uL (130-400); RDW Coefficient of Variation 13.5 % (11.5-14.5); RDW Standard Deviation 47.8 fL (36.4-46.3); Red Blood Count 4.33 M/uL (4.7-6.1); White Blood Count 6.19 K/uL (4.8-10.8)
[2021-08-10 11:44] LABS: INR 1.1 (0.9-1.1); Prothrombin Time 11.3 Seconds (9.0-12.0)
[2021-08-10 12:01] LABS: Troponin I < 0.03 ng/ml (0-0.04)
[2021-08-10] MEDS ORDERED: DAPTOmycin 575 MG in SYRINGE 0 ML IV ONE (12:11)
--- NOTE | 2021-08-10 12:12 | XRay Report ---
XR chest 1V portable HISTORY: 71 years-old Male sepsis acute sepsis COMPARISON: Chest radiograph 07/27/2021 TECHNIQUE: Portable AP view of the chest FINDINGS: Cardiac silhouette. Left subclavian pacer. No pneumothorax, large pleural effusion or lobar airspace consolidation. Unchanged interstitial coarsening, most pronounced within the mid to lower lung zones. Degenerative changes of the shoulders and spine. IMPRESSION: 1. Cardiomegaly without acute process. 2. Chronic interstitial coarsening. ACT 112: Negative or not required by law. The above report was generated using voice recognition software. It may contain grammatical, syntax o r spelling errors. Electronically signed by: Bartolome Menchaca M.D. 08/10/2021 12:11 PM
[2021-08-10 12:44] LABS: Alanine Aminotransferase 18 U/L (7-52); Albumin Level 3.5 gm/dl (3.4-5.0); Alkaline Phosphatase 144 U/L (34-104); Anion Gap 9 (3-11); Aspartate Aminotransferase 25 U/L (13-39); BUN Creatinine Ratio 21.1 (10-20); Bilirubin Direct 0.4 mg/dl (0-0.2); Bilirubin,Total 1.6 mg/dl (0.2-1.0); Blood Urea Nitrogen 30 mg/dl (6-23); Calcium 9.2 mg/dl (8.5-10.1); Carbon Dioxide 29 mmol/L (21-32); Chloride 99 mmol/L (98-107); Creatinine Clr Calc Pharmacy 67.7 ml/min; Glucose 247 mg/dl (70-99(Fasting)); Lipase 7 U/L (11-82); Magnesium 1.9 mg/dl (1.7-2.4); Potassium 4.5 mmol/L (3.5-5.1); Sodium 137 mmol/L (136-145); Total Protein 7.1 gm/dl (6.0-8.3)
[2021-08-10] MEDS ORDERED: dexAMETHasone**PF** 10 MG/ML VIAL IV ONE (12:58)
[2021-08-10] MEDS ORDERED: STAT IV Infusion **Titration per Protocol STA (13:01)
[2021-08-10] MEDS ORDERED: INSULIN PROTOCOL GOAL RANGE ONE (13:01)
[2021-08-10] MEDS ORDERED: GLUCAGON FOR INJ 1 MG VIAL IM PRN (13:15)
[2021-08-10] MEDS ORDERED: GLUCOSE 40% GEL 15 GM TUBE PO PRN (13:15)
[2021-08-10] MEDS ORDERED: INSULIN REGULAR 250 UNITS in SODIUM CHLORIDE 0.9% 247.5 ML IV SCH (13:15)
[2021-08-10] MEDS ORDERED: GLUCOSE 10 TABS/TUBE PO PRN (13:15)
[2021-08-10] MEDS ORDERED: DEXTROSE 50% 50 ML SYRINGE IV PRN (13:15)
[2021-08-10] MEDS ORDERED: CARBOHYDRATES FOR HYPOGLYCEMIA PO PRN (13:15)
--- NOTE | 2021-08-10 14:03 | History & Physical Report ---
Date of Service August 10, 2021 Assessment & Plan (1) Acute respiratory failure with hypoxia: (2) COVID-19: Plan: -Admit to telemetry -Patient presenting from [facility] for evaluation of nausea, poor appetite, shortness of breath, cough, left finger wound -In the ED, patient tested positive for COVID-19. Hypoxic on room air at 84%, currently requiring 2 L of oxygen via nasal cannula -Patient received COVID-19 vaccination x 2 doses, last dose on 10/02/2020. Patient has not received her third dose yet. -No signs of pneumonia or infiltrate on CXR -Patient does meet criteria for remdesivir and dexamethasone therapies, will start both -Continue supportive care with flutter valve, incentive spirometer, as needed albuterol inhaler -Due to nausea and poor appetite, patient requesting clear liquids. Advance as tolerated. (3) Cellulitis of left middle finger: Plan: -Previously blistered wound noted to left middle finger, ?? Burn injury last week -details unknown -Will check CT hand, Ortho consult -S/p daptomycin and cefepime in the ED, will continue with both. Patient has history of MRSA wound infection. -Afebrile, no leukocytosis (4) Diabetes mellitus, type 2: Plan: -Hgb A1c 9.5 06/2021 -History of brittle uncontrolled diabetes -Due to receiving IV dexamethasone for COVID-19, will prophylactically start IV insulin drip for optimal blood sugar control (5) Chronic diastolic CHF (congestive heart failure): (6) Tachycardia induced cardiomyopathy: Plan: -Previous EF as low as 25% however subsequent normalization -Echo 10/2020 EF 50 to 60% -Patient currently appears euvolemic, continue home diuretics (7) Atrial fibrillation: (8) Tachy-sherry syndrome: (9) Pacemaker: Plan: -Rate controlled on metoprolol -Anticoagulated on Eliquis (10) History of pulmonary embolism: Plan: -On Eliquis (11) CKD (chronic kidney disease) stage 3, GFR 30-59 ml/min: Plan: -Baseline creatinine runs in the mid 1's -Creatinine 1.4 today -Follow renal functions (12) SALAS (obstructive sleep apnea): Plan: -BiPAP as per home settings (13) DVT prophylaxis: Plan: -On Eliquis History of Present Illness Chief Complaint: Nausea, shortness of breath, cough, left finger wound Primary Care Provider: Pura Grimm MD 71-year-old medically complex male with PMH DM type II, CKD stage III, hypothyroidism, COPD, SALAS, tachycardia induced cardiomyopathy, HTN, chronic diastolic CHF, history of pulmonary embolism anticoagulated on Coumadin, paroxysmal atrial fibrillation, tachybradycardia syndrome s/p pacemaker, and other problems listed below who presents the ED for evaluation of nausea, shortness of breath, cough, left finger wound. Patient recently admitted to [facility] 07/27 through 07/31 for DKA and E. coli UTI. Patient was discharged to [facility] rehab facility and was subsequently discharged to [facility] on 08/08/2021. Patient reports that his left finger wound has been present for about the past week. Patient seems to be unsure how this happened however there is some report that he may have burned himself on a hot plate. He has not received any treatment for this wound yet. Over the past 3 days, patient reports nausea, dry heaves, diarrhea, poor appetite. He also has had mild exertional shortness of breath and cough productive for a green sputum. No fevers or chills. Patient denies chest pain or palpitations. No lightheadedness, dizziness, diaphoresis, syncopal events. Denies abdominal pain and vomiting. No urinary symptoms. In the ED, patient was hypoxic on room air at 84%, he is currently requiring 2 L of oxygen via nasal cannula. Patient tested positive for COVID-19. He has received 2 COVID-19 vaccines however has not received third dose yet. Last dose was on 10/02/2020. CXR does not show any sign of pneumonia. Labs are essentially unremarkable/at patient's baseline. Patient was given IV dexamethasone and prophylactically started on insulin drip given his history of brittle diabetes. Allergies Allergy/AdvReac Type Severity Reaction Status Date / Time No Known Allergies Allergy Verified 08/10/21 14:21 Home Medications Medication Instructions Recorded Confirmed Type digoxin 125 mcg (0.125 mg) tablet 0.125 mg PO QPM #0 07/13/16 08/10/21 History aspirin 81 mg tablet,delayed 81 mg PO QAM 05/11/18 08/10/21 History release (Adult Low Dose Aspirin) levothyroxine 50 mcg tablet 50 mcg PO QAM 06/24/18 08/10/21 History duloxetine 60 mg capsule,delayed 60 mg PO QAM 08/31/18 08/10/21 History release cholecalciferol (vitamin D3) 50 2,000 units PO QAM 05/13/19 08/10/21 History mcg (2,000 unit) capsule allopurinol 300 mg tablet 300 mg PO QAM 05/25/19 08/10/21 History levothyroxine 200 mcg tablet 200 mcg PO QAM #0 tab 05/25/19 08/10/21 History omeprazole 20 mg capsule,delayed 20 mg PO QAM 05/25/19 08/10/21 History release potassium chloride 20 mEq 20 meq PO BID 07/12/19 08/10/21 History tablet,extended release(part/cryst) (Klor-Con M) albuterol sulfate 90 mcg/actuation 2 puffs INH QID PRN gm 12/14/19 08/10/21 History aerosol inhaler atorvastatin 20 mg tablet 20 mg PO HS 12/14/19 08/10/21 History meclizine 12.5 mg tablet 12.5 mg PO TID PRN 12/14/19 08/10/21 History bupropion HCl 150 mg 24 hr tablet, 150 mg PO QAM 02/13/20 08/10/21 History extended release metoprolol succinate 100 mg 150 mg PO BID 02/13/20 08/10/21 History tablet,extended release 24 hr oxybutynin chloride 10 mg 10 mg PO DAILY 03/29/20 08/10/21 History tablet,extended release 24 hr (Ditropan XL) multivitamin with minerals 1 tab PO DAILY 06/19/20 08/10/21 History (Multiple Vitamin-Minerals) nitroglycerin 0.4 mg sublingual 0.4 mg SUBLINGUAL UD PRN 06/19/20 08/10/21 History tablet sennosides 8.6 mg-docusate sodium 1 tab-cap PO BID 07/16/20 08/10/21 History 50 mg tablet (Senna with Docusate Sodium) furosemide 80 mg tablet 80 mg PO BID 11/01/20 08/10/21 History magnesium oxide 400 mg PO DAILY 11/01/20 08/10/21 History metolazone 2.5 mg tablet 2.5 mg PO DAILY PRN 11/01/20 08/10/21 History spironolactone 25 mg tablet 25 mg PO DAILY 11/01/20 08/10/21 History (Aldactone) nystatin 100,000 unit/gram topical 1 applic TOPICAL BID 03/04/21 08/10/21 History powder apixaban 5 mg tablet 5 mg PO BID 07/11/21 08/10/21 History gabapentin 300 mg capsule 300 mg PO TID 07/27/21 08/10/21 History blood sugar diagnostic (Contour #50 ea 07/31/21 08/10/21 Rx Next Test Strips) blood-glucose meter (Contour Next #1 ea 07/31/21 08/10/21 Rx Glucose Meter) lancets (Microlet Lancet) #100 ea 07/31/21 08/10/21 Rx acetaminophen 325 mg tablet 650 mg PO Q4H PRN 08/10/21 08/10/21 History insulin glargine 100 unit/mL (3 25 unit SC HS 08/10/21 08/10/21 History mL) subcutaneous pen (Lantus Solostar U-100 Insulin) insulin glargine 100 unit/mL (3 80 unit SC DAILY 08/10/21 08/10/21 History mL) subcutaneous pen (Lantus Solostar U-100 Insulin) insulin regular human 100 unit/mL 0 sliding scale dose SUBCUT ACHS 08/10/21 08/10/21 History (3 mL) subcutaneous pen (Novolin R Flexpen) insulin regular human 100 unit/mL 10 unit SUBCUT TIDM 08/10/21 08/10/21 History (3 mL) subcutaneous pen (Novolin R Flexpen) Past Med/Surg History Medical History Abnormal chest x-ray 06/18/20 right hilar opacity, f/u recommended Anticoagulant long-term use Arthritis Atrial fibrillation paroxysmal Atrial flutter Bifascicular block CAD (coronary artery disease) Cardiac pacemaker in situ Cardiomyopathy Chronic anticoagulation Chronic diastolic CHF (congestive heart failure) Chronic venous insufficiency CKD (chronic kidney disease) stage 3, GFR 30-59 ml/min Claustrophobia Closed fracture of thyroid cartilage COPD, moderate Depression Diabetes mellitus, type 2 insulin pump Fatty liver Gout Hyperlipidemia Hypertension Hypothyroidism Iatrogenic pulmonary embolism Interstitial lung disease Morbid obesity MRSA infection Nephrolithiasis Nocturnal hypoxemia SALAS (obstructive sleep apnea) Osteoarthritis Paroxysmal atrial fibrillation Prolonged QT interval Pulmonary embolism B/L- 5+ years ago Sarcoidosis possible- evaluated by pulmonary; felt no active sarcoidosis and would not merit steroid therapy given weight/diabetic state. 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 "prior EF of 25% while in aflutter, subsequently normal in NSR" Surgical History H/O cardiac radiofrequency ablation H/O prior ablation treatment History of arthroscopic knee surgery History of bronchoscopy History of cataract surgery local anesthesia only per pt History of cholecystectomy History of extraction of renal calculus History of lung surgery thoracoscopy, right VATS, wedge resection History of umbilical hernia repair Hx of carpal tunnel repair Pacemaker Implanted 02/2017 secondary to Sinus node dysfunction/tachy sherry syndrome/3rd degree AVB [employer] Pacer check 12/24/17 Status post incision and drainage Family History Mother Cancer Social History Smoking Status: Never smoker Second Hand Exposure: No; Hx Alcohol Use: No Hx Substance Use: No Preferred Language: Faroese Communication Ability: Effective Visual Impairment: No Limitations Hearing Ability: Normal Manufacturing Sales Representative Required: No Beliefs That Will Affect Care: None marital status: Current Living Situation: Alone and Personal Care Facility current occupational status: retired How many Children do You have: 2 Feels Safe at Home: Yes Diet Comment: FLUID RESTRICTION during the past year weight has: other Assistive Devices: Walker Review of Systems Review of Systems: ROS per HPI, all other systems reviewed and negative Physical Exam Constitutional: WD/WN, vitals as above + obese; no acute distress Eyes: PERRL, conjunctivae normal, anicteric sclerae ENMT: external ear and nose normal, oropharynx normal Respiratory: normal respiratory effort, lungs clear to auscultation Cardiovascular: Rate/Rhythm: regular rate and + irregularly irregular Vessels: normal peripheral pulses Extremities: no edema Gastrointestinal (Abdomen): normal bowel sounds, soft, nontender, no hepatosplenomegaly Musculoskeletal: no cyanosis or clubbing, extremities motor strength 5/5 Open blister wound noted to left middle digit with surrounding erythema and edema Skin: no rashes, warm and dry Chronic venous changes BLE Neurologic: PERRL, EOMI, accommodation nl, no face palsy, no dysarthria Psychiatric: A+Ox3, euthymic affect Results & Data Results & Data ([facility]) Vital Signs (Past 12 Hours) Vital Signs Temp Pulse Pulse Resp BP BP Pulse Ox 08/10/21 12:30 66 21 104/69 86 L 08/10/21 12:00 72 15 110/67 94 08/10/21 11:30 73 24 105/61 96 08/10/21 11:15 73 23 101/63 88 L 08/10/21 11:10 77 28 H 123/67 08/10/21 11:05 85 12 127/71 91 08/10/21 10:56 36.8 C 190 H 14 87/43 L 84 L Laboratory Results Short CBC 08/10/21 Range/Units 11:15 WBC 6.19 (4.8-10.8) K/uL Hgb 13.4 L (14.0-18.0) g/dL Hct 41.6 L (42-52) % Plt Count 224 (130-400) K/uL BMP 08/10/21 11:15 Sodium 137 Potassium 4.5 Chloride 99 Carbon Dioxide 29 BUN 30 H Creatinine 1.42 H Glucose 247 H Calcium 9.2 Cardiac Enzymes 08/10/21 Range/Units 11:15 Troponin I < 0.03 (0-0.04) ng/ml Liver Function 08/10/21 Range/Units 11:15 Total Bilirubin 1.6 H (0.2-1.0) mg/dl Direct Bilirubin 0.4 H (0-0.2) mg/dl AST 25 (13-39) U/L ALT 18 (7-52) U/L Alkaline Phosphatase 144 H (34-104) U/L Albumin 3.5 (3.4-5.0) gm/dl Diagnostic Findings Chest X-Ray 08/10/21 11:06 XR chest 1V portable HISTORY: 71 years-old Male sepsis acute sepsis COMPARISON: Chest radiograph 07/27/2021 TECHNIQUE: Portable AP view of the chest FINDINGS: Cardiac silhouette. Left subclavian pacer. No pneumothorax, large pleural effusion or lobar airspace consolidation. Unchanged interstitial coarsening, most pronounced within the mid to lower lung zones. Degenerative changes of the shoulders and spine. IMPRESSION: 1. Cardiomegaly without acute process. 2. Chronic interstitial coarsening. ACT 112: Negative or not required by law. The above report was generated using voice recognition software. It may contain grammatical, syntax or spelling errors. Electronically signed by: Bartolome Menchaca M.D. 08/10/2021 12:11 PM Code Status & VTE Plan Code Status Patient is a full code as per my discussion with him. VTE Prophylaxis Plan VTE Prophylaxis will be ordered: No Supervising Physician Co-Signing Physician Notes 71-year-old with history of morbid obesity, HFpEF [TTE F 50 to 60%], SSS status post PPM/PE on anticoagulation, COPD/ILD, SALAS on CPAP, DM 2 on insulin, hypothyroidism, CKD [baseline 1.5-2], chronic anemia, who presented to the ED from the [facility] for concerns of nausea, shortness of breath, cough, left finger wound, diarrhea. He is being managed for the following: #. Upon exam GENERAL: Alert and oriented x3. NAD, on RA. HEENT: No pallor, no icterus. Pupils equal, round and reactive to light. Oral mucosa moist. NECK: No JVD, no neck masses. HEART: S1 and S2 heard. Regular rate and rhythm. No murmur, no gallop. RESPIRATORY SYSTEM: Normal AP diameter. No accessory muscle use. No wheezing, no crackles. decreased breath sounds ABDOMEN: Soft, bowel sounds present, nontender, no distention. CENTRAL NERVOUS SYSTEM: No facial droop. Speech is clear. Obeys simple commands. Moves extremities. EXTREMITIES: No edema, no erythema seen. Chronic BLE skin changes. Lt 3rd middle finger -- erythema/edema/ruptured blister #. Pneumonia due to COVID-19 #. Acute respiratory failure with hypoxia Vaccine status/month: Received 2 vaccines; S/S : Started 3 days before VERSE WRITER; Barbara kalin Positive: 08/10 Admitting pro-Sreedhar: Negative Admitting imaging: CXR with no acute changes. Clinically, patient sitting up in chair requiring 2 L oxygen with decreased breath sounds on auscultation Encourage every hour incentive spirometer/flutter valve/self proning as able Tessalon Perles and Mucinex for cough BNP: 333; Strict I's and O's; as needed IV Lasix; monitor BMP Monitor LFT daily when on remdesivir; sliding scale and glycemic pharmacy if needed when on steroid. c/w Dexamethasone 08/10 and Remdesivir 08/10. #. Foreign body left middle finger #. Cellulitis left middle finger Left middle finger blistered wound noted, concern of burn injury a week ago VERSE WRITER Admitting CT head positive for 5 mm foreign body in the left middle finger Patient received daptomycin and cefepime, continue with both. Orthopedics consulted, appreciate recommendation. #. DM type II insulin requiring Patient on steroid due to Covid, glycemic pharmacy consulted for diabetes management #. Other chronic medical conditions: CHF, tachycardia induced cardiomyopathy, A. fib, status post pacer, history of PE Continue with/resume home meds as and when appropriate. DVT prophylaxis: On Eliquis Full code 08/10: Patient's daughter Bing called over the phone, updated with the patient's status with the findings on the CT scan of his left hand, she voiced understanding and was agreeable to the plan of care. 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
[2021-08-10] MEDS ORDERED: REMDESIVIR 200 MG in SODIUM CHLORIDE 0.9% 210 ML IV ONE (14:30)
[2021-08-10 15:02] LABS: Appearance Urine Clear (Clear); Bacteria Urine Automated 1+ (Negative); Bilirubin Urine Negative (Negative); Blood Urine Negative (Negative); Color Urine Dark Yellow; Glucose Urine UA Negative (Negative); Ketones Urine Negative (Negative); Leukocyte Esterase Urine 1+ (Negative); Nitrite Urine Negative (Negative); Protein Urine Negative (Negative); RBC Urine Automated 0-4 /hpf (0-4); Specific Gravity Urine 1.015 (1.000-1.030); Urobilinogen Urine Negative (Negative); WBC Urine Automated >30 /hpf (0-5); pH Urine 5.5 (4.5-7.5)
--- NOTE | 2021-08-10 16:26 | CT Scan Report ---
CT hand LT wo con HISTORY: 71 years-old Male left 3rd finger burn/cellulitis acute pain and swelling of the left hand third finger with reported cellulitis COMPARISON: None TECHNIQUE: Multiple axial CT images of the left hand were obtained without the use of IV contrast. A dose lowering technique was used consistent with the principals of JOY. FINDINGS: There is a 5 x 3 x 3 mm radiodense foreign body noted within the ulnar soft tissues of the third fing er at the level of the distal phalanx. Additionally, there is mild subcutaneous edema of the distal t hird finger. No abscess. The soft tissues are otherwise unremarkable. The imaged flexor and extensor tendons appear intact. Arterial calcifications. Tendons and ligaments are not well dilated by safety tech nique. No tenosynovitis identified. Subcentimeter scaphoid bone island. Mild multifocal osteoarthritis. There is no acute fracture, dislo cation or osseous erosion identified. IMPRESSION: 1. No acute fracture or dislocation. 2. Mild subcutaneous edema of the distal third finger with 5 mm foreign body. ACT 112: Negative or not required by law. The above report was generated using voice recognition software. It may contain grammatical, syntax o r spelling errors. Electronically signed by: Bartolome Menchaca M.D. 08/10/2021 4:24 PM
[2021-08-10] MEDS ORDERED: ALBUTEROL HFA 8 GM INHALER INH PRN (16:57)
[2021-08-10] MEDS: INSULIN ASPART PER UNIT SC SCH ×2 (17:49→21:07)
[2021-08-10] MEDS: FUROSEMIDE 80 MG TAB PO SCH (18:19)
[2021-08-10] MEDS: DIGOXIN 0.125 MG TAB PO SCH (18:19)
[2021-08-10] MEDS: CEFEPIME 2,000 MG in SYRINGE 0 ML IV SCH (20:30)
[2021-08-10] MEDS: POTASSIUM CHLORIDE CRTAB 20 MEQ TABCR PO SCH (20:31)
[2021-08-10] MEDS: APIXABAN 5 MG TABLET PO SCH (20:31)
[2021-08-10] MEDS: METOPROLOL SUCC 50MG EXT REL TAB PO SCH (20:31)
[2021-08-10] MEDS: GABAPENTIN 300 MG CAP PO SCH (20:31)
[2021-08-10] MEDS ORDERED: ATORVASTATIN 20 MG TAB PO SCH (21:00)
[2021-08-10] MEDS ORDERED: ATORVASTATIN 10 MG TAB PO SCH (21:00)
[2021-08-11] MEDS: CEFEPIME 2,000 MG in SYRINGE 0 ML IV SCH (04:47)
[2021-08-11] MEDS ORDERED: dexAMETHasone 6 MG in SYRINGE 0 ML IV ONE (05:41)
[2021-08-11] MEDS: LEVOTHYROXINE SODIUM 200 MCG TABLET PO SCH (05:56)
[2021-08-11] MEDS: LEVOTHYROXINE SODIUM 50 MCG TABLET PO SCH (05:56)
[2021-08-11] MEDS ORDERED: PHARMACY GLYCEMIC MGMT CONSULT PRN (07:22)
[2021-08-11] MEDS: INSULIN ASPART PER UNIT SC SCH ×5 (08:26→21:37)
[2021-08-11 08:28] LABS: Hematocrit (blood only) 40.5 % (42-52); Hemoglobin 13.1 g/dL (14.0-18.0); Mean Corpuscular Hemoglobin 30.3 pg (25-34); Mean Corpuscular Hgb Conc 32.3 g/dL (32-36); Mean Corpuscular Volume 93.5 fL (80-100); Platelet Count 252 K/uL (130-400); RDW Coefficient of Variation 13.4 % (11.5-14.5); RDW Standard Deviation 46.3 fL (36.4-46.3); Red Blood Count 4.33 M/uL (4.7-6.1); White Blood Count 5.93 K/uL (4.8-10.8)
[2021-08-11] MEDS: allopurinoL 300 MG TAB PO SCH (08:59)
[2021-08-11] MEDS: APIXABAN 5 MG TABLET PO SCH ×2 (08:59→21:32)
[2021-08-11] MEDS: FUROSEMIDE 80 MG TAB PO SCH ×2 (08:59→16:53)
[2021-08-11] MEDS: OXYBUTYNIN CHLORIDE XL 5 MG TABCR PO SCH (08:59)
[2021-08-11] MEDS: SPIRONOLACTONE 25 MG TAB PO SCH (08:59)
[2021-08-11] MEDS: GABAPENTIN 300 MG CAP PO SCH ×3 (08:59→21:32)
[2021-08-11] MEDS ORDERED: dexAMETHasone 6 MG in SYRINGE 0 ML IV SCH (09:00)
[2021-08-11] MEDS: METOPROLOL SUCC 50MG EXT REL TAB PO SCH ×2 (09:00→21:32)
[2021-08-11] MEDS: PANTOprazole 40 MG TAB PO SCH (09:00)
[2021-08-11] MEDS: ASPIRIN 81 MG ECTAB PO SCH (09:00)
[2021-08-11] MEDS: CHOLECALCIFEROL 1,000 UNITS 25 MCG TAB PO SCH (09:00)
[2021-08-11] MEDS: MAGNESIUM OXIDE 400 MG TAB PO SCH (09:00)
[2021-08-11] MEDS: buPROPion XL 150 MG TABCR PO SCH (09:00)
[2021-08-11] MEDS ORDERED: INSULIN HUMAN NPH SC SCH (09:00)
[2021-08-11] MEDS: DULoxetine HCL 60 MG CAP PO SCH (09:00)
[2021-08-11] MEDS ORDERED: INSULIN GLARGINE 100 UNIT/ML VIAL SC SCH ×2 (09:00→21:00)
[2021-08-11] MEDS: POTASSIUM CHLORIDE CRTAB 20 MEQ TABCR PO SCH ×2 (09:06→21:33)
[2021-08-11 09:23] LABS: Calcium 9.8 mg/dl (8.5-10.1); Creatinine Clr Calc Pharmacy 76.5 ml/min; Est GFR (African American) 67.7 ml/min; Est GFR (Non-African American) 58.4 ml/min
[2021-08-11] MEDS ORDERED: PIPERACILL/TAZOBAC CONSULT ACTIVE PRN (09:35)
[2021-08-11] MEDS ORDERED: PIPERACILLIN/TAZOBACTAM 4.5 GM in DEXTROSE 5% 100 ML IV ONE (10:00)
--- NOTE | 2021-08-11 11:07 | Pharmacy Report ---
Pharmacy Glycemic Short Note 2 - Date of Service August 11, 2021 - Glycemic Short BSG Results (Last 24 hours): 08/10/21 08/10/21 08/10/21 11:15 13:32 14:35 Glucose 247 H POC Glucose 232 H 218 H 08/10/21 08/10/21 08/10/21 15:31 16:42 17:46 Glucose POC Glucose 188 H 190 H 164 H 08/10/21 08/10/21 08/10/21 18:43 19:49 19:53 Glucose POC Glucose 167 H 188 H 172 H 08/10/21 08/10/21 08/10/21 20:52 21:50 22:48 Glucose POC Glucose 201 H 211 H 194 H 08/10/21 08/11/21 08/11/21 23:53 00:55 01:50 Glucose POC Glucose 192 H 173 H 155 H 08/11/21 08/11/21 08/11/21 02:51 03:59 04:23 Glucose POC Glucose 132 H 101 H 118 H 08/11/21 08/11/21 08/11/21 05:34 06:16 06:55 Glucose POC Glucose 95 90 85 08/11/21 08/11/21 07:31 07:52 Glucose 95 POC Glucose 113 H OUTPATIENT ANTIDIABETIC REGIMEN: * Lantus 80 units Qam, 25 units Qpm, Regular insulin 10 units TID + SSI ASSESSMENT: * 71 year old male admitted with COVID pneumonia. Type 2 DM known to glycemic service from prior admissions * Previously on insulin drip yesterday evening, insulin drip held early this AM by provider. Pharmacy now consulted to help with glycemic management * BSG 113 mg/dL - will resume home basal insulin. Steroids continued, dex 6 mg daily - will add NPH 0.4 unit/kg adj bw daily to help cover steroids * Insulin drip rate fluctuating yesterday from 3-7 units/hr. Steroids also given yesterday. Last drip rate before insulin drip was on hold was ~3 units/hr * Will start novolog with stress of 2 dosing of home basal dose, likely will need to titrate PLAN FOR INPATIENT GLYCEMIC CONTROL: * Hold outpatient oral diabetes medications * Basal insulin * Lantus 80 units Qam and 25 units Qpm * NPH 40 units daily - with dex * Bolus insulin * NovoLog per scale ACHS or Q6hrs while NPO * Goal Range: Low 110 mg/dL - High 140 mg/dL * Correction Factor: 8 mg/dL/unit * Nutritional / Prandial insulin per carb ratio of 1 unit per 3 grams CHO consumed PLAN FOR DISCHARGE: * tbd
[2021-08-11] MEDS: DAPTOmycin 400 MG in SYRINGE 0 ML IV SCH (11:58)
[2021-08-11] MEDS: REMDESIVIR 100 MG in SODIUM CHLORIDE 0.9% 230 ML IV SCH (12:12)
[2021-08-11] MEDS: PIPERACILLIN/TAZOBACTAM 4.5 GM in DEXTROSE 5% 100 ML IV SCH ×2 (15:06→22:54)
--- NOTE | 2021-08-11 15:16 | Hospitalist Progress Note ---
Date of Service August 11, 2021 Assessment & Plan (1) COVID-19: (2) Cellulitis of left middle finger: (3) Acute respiratory failure with hypoxia: Plan: 71-year-old with history of morbid obesity, HFpEF [TTE F 50 to 60%], SSS status post PPM/PE on anticoagulation, COPD/ILD, SALAS on CPAP, DM 2 on insulin, hypothyroidism, CKD [baseline 1.5-2], chronic anemia, who presented to the ED from the [facility] for concerns of nausea, shortness of breath, cough, left finger wound, diarrhea. He is being managed for the following: #. Pneumonia due to COVID-19 #. Acute respiratory failure with hypoxia Vaccine status/month: Received 2 vaccines; S/S : Started 3 days before CAD DEVELOPER; Tested Positive: 08/10 Admitting pro-Sreedhar: Negative Admitting imaging: CXR with no acute changes. Clinically, patient sitting up in chair on room airn with decreased breath sounds on auscultation Encourage every hour incentive spirometer/flutter valve/self proning as able Tessalon Perles and Mucinex for cough BNP: 333; Strict I's and O's; as needed IV Lasix; monitor BMP Monitor LFT daily when on remdesivir; sliding scale and glycemic pharmacy if needed when on steroid. c/w Dexamethasone 08/10 and Remdesivir 08/10. #. Foreign body left middle finger #. Cellulitis left middle finger Left middle finger blistered wound noted, concern of burn injury a week ago CAD DEVELOPER Admitting CT head positive for 5 mm foreign body in the left middle finger Patient received daptomycin and cefepime in the ED, continue with Dapto 08/10 and Zosyn 08/11 Orthopedics consulted, awaiting recommendation. #. DM type II insulin requiring Patient on steroid due to Covid, glycemic pharmacy consulted for diabetes management #. Other chronic medical conditions:CHF, tachycardia induced cardiomyopathy, A. fib, status post pacer, history of PE Continue with/resume home meds as and when appropriate. DVT prophylaxis: On Eliquis Full code 08/10: Patient's daughter Bing called over the phone, updated with the patient's status with the findings on the CT scan of his left hand, she voiced understanding and was agreeable to the plan of care. Admission and Anticipated Discharge Date Admission Date: August 10, 2021 Subjective Seen and examined at bedside for acute respiratory failure secondary to pneumonia secondary to COVID-19 virus infection and left middle finger cellulitis/foreign body. Patient sitting up in chair, today on room air, NAD, no new acute events overnight. Patient reports improvement in his cough and diarrhea. Patient denies any fever/chills/chest pain/palpitations/belly pain/other review of symptoms. Patient reports some pain in his left middle finger but believes that it is under control. Patient reports eating okay. Physical Exam Physical Exam: GENERAL: Alert and oriented x3. NAD, on RA. HEENT: No pallor, no icterus. Pupils equal, round and reactive to light. Oral mucosa moist. NECK: No JVD, no neck masses. HEART: S1 and S2 heard. Regular rate and rhythm. No murmur, no gallop. RESPIRATORY SYSTEM: Normal AP diameter. No accessory muscle use. No wheezing, no crackles. decreased breath sounds ABDOMEN: Soft, bowel sounds present, nontender, no distention. CENTRAL NERVOUS SYSTEM: No facial droop. Speech is clear. Obeys simple commands. Moves extremities. EXTREMITIES: No edema, no erythema seen. Chronic BLE skin changes. Lt 3rd middle finger (mid and distal phalanx) -- erythema/edema/ruptured blister Results & Data Results & [facility] ([facility]) Vital Signs (Past 12 Hours) Vital Signs Temp Pulse Pulse Resp BP BP Pulse Ox 08/11/21 14:59 99 08/11/21 11:30 36.6 C 76 20 117/64 96 08/11/21 08:00 59 L 08/11/21 07:37 37.0 C 71 18 123/64 96 08/11/21 04:03 36.7 C 64 22 129/72 95 08/11/21 03:51 64 26 H 95
[2021-08-11] MEDS: DIGOXIN 0.125 MG TAB PO SCH (16:53)
[2021-08-11] MEDS: ACETAMINOPHEN 325 MG TAB PO PRN (21:44)
[2021-08-12] MEDS: LEVOTHYROXINE SODIUM 200 MCG TABLET PO SCH (06:12)
[2021-08-12] MEDS: LEVOTHYROXINE SODIUM 50 MCG TABLET PO SCH (06:12)
[2021-08-12] MEDS: PIPERACILLIN/TAZOBACTAM 4.5 GM in DEXTROSE 5% 100 ML IV SCH ×3 (06:23→22:25)
[2021-08-12 07:13] LABS: BUN Creatinine Ratio 21.7 (10-20); Calcium 9.7 mg/dl (8.5-10.1); Creatinine Clr Calc Pharmacy 66.4 ml/min; Est GFR (African American) 57.5 ml/min; Est GFR (Non-African American) 49.6 ml/min; Potassium 3.6 mmol/L (3.5-5.1)
[2021-08-12] MEDS: INSULIN ASPART PER UNIT SC SCH ×4 (07:53→21:33)
[2021-08-12] MEDS: dexAMETHasone 6 MG in SYRINGE 0 ML IV SCH (08:24)
[2021-08-12] MEDS: OXYBUTYNIN CHLORIDE XL 5 MG TABCR PO SCH (08:25)
[2021-08-12] MEDS: POTASSIUM CHLORIDE CRTAB 20 MEQ TABCR PO SCH ×2 (08:25→20:43)
[2021-08-12] MEDS: MAGNESIUM OXIDE 400 MG TAB PO SCH (08:25)
[2021-08-12] MEDS: APIXABAN 5 MG TABLET PO SCH ×2 (08:25→20:42)
[2021-08-12] MEDS: GABAPENTIN 300 MG CAP PO SCH ×3 (08:25→20:43)
[2021-08-12] MEDS: buPROPion XL 150 MG TABCR PO SCH (08:26)
[2021-08-12] MEDS: METOPROLOL SUCC 50MG EXT REL TAB PO SCH ×2 (08:26→20:42)
[2021-08-12] MEDS: FUROSEMIDE 80 MG TAB PO SCH ×2 (08:26→17:08)
[2021-08-12] MEDS: CHOLECALCIFEROL 1,000 UNITS 25 MCG TAB PO SCH (08:26)
[2021-08-12] MEDS: PANTOprazole 40 MG TAB PO SCH (08:26)
[2021-08-12] MEDS: DULoxetine HCL 60 MG CAP PO SCH (08:26)
[2021-08-12] MEDS: ASPIRIN 81 MG ECTAB PO SCH (08:26)
[2021-08-12] MEDS: allopurinoL 300 MG TAB PO SCH (08:26)
[2021-08-12] MEDS: SPIRONOLACTONE 25 MG TAB PO SCH (08:26)
[2021-08-12] MEDS ORDERED: INSULIN HUMAN NPH SC SCH (09:00)
[2021-08-12] MEDS ORDERED: INSULIN GLARGINE 100 UNIT/ML VIAL SC SCH (09:00)
--- NOTE | 2021-08-12 11:52 | Orthopedic Consultation ---
Date of Consultation August 12, 2021 Assessment & Plan (1) Cellulitis of left middle finger: Continue daily dressing changes. I have spoken to Mariangel from wound care who was about to go in to see the patient. They will give recommendations for dressings for the third finger at this point in time. Continue wound care at this time. Continue antibiotics at this time and watch the finger for now for signs of worsening or no further progress of healing. I am unsure of when or how he obtained the foreign body in his finger. Patient is unsure at this time. CT scan results as noted below. No plans for MRI secondary to metal foreign body. History of Present Illness Reason for Consultation: Left middle finger wound Attending Physician: Sanford Sunshine MD History of Present Illness 71-year-old medically complex male with PMH DM type II, CKD stage III, hypothyroidism, COPD, SALAS, tachycardia induced cardiomyopathy, HTN, chronic diastolic CHF, history of pulmonary embolism anticoagulated on Coumadin, paroxysmal atrial fibrillation, tachybradycardia syndrome s/p pacemaker, and other problems listed below who presents the ED for evaluation of nausea, shortness of breath, cough, left finger wound. We have been asked to see this gentleman for a left third finger wound. Patient resides at [facility]. There is some question of whether he had a burn wound to the finger but history is unknown. Patient cannot remember what happened to the finger. He has been started on antibiotics and over the weekend, hospital service felt that it might need possible surgery. Currently the patient is sitting up in his chair awake and alert. He has no recollection of what has happened to his fingers. CT scan of the finger showed no abscesses but subcutaneous edema. There was also a 5 mm metal foreign body noted in the fingertip as well. Patient does not know how this got there. He does not recall using a needle or any type of metal to pop a blister etc. in the past. He states that he was having some pain with the finger which seems a little better. Allergies Allergy/AdvReac Type Severity Reaction Status Date / Time No Known Allergies Allergy Verified 08/10/21 14:21 Home Medications Medication Instructions Recorded Confirmed Type digoxin 125 mcg (0.125 mg) tablet 0.125 mg PO QPM #0 07/13/16 08/10/21 History aspirin 81 mg tablet,delayed 81 mg PO QAM 05/11/18 08/10/21 History release (Adult Low Dose Aspirin) levothyroxine 50 mcg tablet 50 mcg PO QAM 06/24/18 08/10/21 History duloxetine 60 mg capsule,delayed 60 mg PO QAM 08/31/18 08/10/21 History release cholecalciferol (vitamin D3) 50 2,000 units PO QAM 05/13/19 08/10/21 History mcg (2,000 unit) capsule allopurinol 300 mg tablet 300 mg PO QAM 05/25/19 08/10/21 History levothyroxine 200 mcg tablet 200 mcg PO QAM #0 tab 05/25/19 08/10/21 History omeprazole 20 mg capsule,delayed 20 mg PO QAM 05/25/19 08/10/21 History release potassium chloride 20 mEq 20 meq PO BID 07/12/19 08/10/21 History tablet,extended release(part/cryst) (Klor-Con M) albuterol sulfate 90 mcg/actuation 2 puffs INH QID PRN gm 12/14/19 08/10/21 History aerosol inhaler atorvastatin 20 mg tablet 20 mg PO HS 12/14/19 08/10/21 History meclizine 12.5 mg tablet 12.5 mg PO TID PRN 12/14/19 08/10/21 History bupropion HCl 150 mg 24 hr tablet, 150 mg PO QAM 02/13/20 08/10/21 History extended release metoprolol succinate 100 mg 150 mg PO BID 02/13/20 08/10/21 History tablet,extended release 24 hr oxybutynin chloride 10 mg 10 mg PO DAILY 03/29/20 08/10/21 History tablet,extended release 24 hr (Ditropan XL) multivitamin with minerals 1 tab PO DAILY 06/19/20 08/10/21 History (Multiple Vitamin-Minerals) nitroglycerin 0.4 mg sublingual 0.4 mg SUBLINGUAL UD PRN 06/19/20 08/10/21 History tablet sennosides 8.6 mg-docusate sodium 1 tab-cap PO BID 07/16/20 08/10/21 History 50 mg tablet (Senna with Docusate Sodium) furosemide 80 mg tablet 80 mg PO BID 11/01/20 08/10/21 History magnesium oxide 400 mg PO DAILY 11/01/20 08/10/21 History metolazone 2.5 mg tablet 2.5 mg PO DAILY PRN 11/01/20 08/10/21 History spironolactone 25 mg tablet 25 mg PO DAILY 11/01/20 08/10/21 History (Aldactone) nystatin 100,000 unit/gram topical 1 applic TOPICAL BID 03/04/21 08/10/21 History powder apixaban 5 mg tablet 5 mg PO BID 07/11/21 08/10/21 History gabapentin 300 mg capsule 300 mg PO TID 07/27/21 08/10/21 History blood sugar diagnostic (Contour #50 ea 07/31/21 08/10/21 Rx Next Test Strips) blood-glucose meter (Contour Next #1 ea 07/31/21 08/10/21 Rx Glucose Meter) lancets (Microlet Lancet) #100 ea 07/31/21 08/10/21 Rx acetaminophen 325 mg tablet 650 mg PO Q4H PRN 08/10/21 08/10/21 History insulin glargine 100 unit/mL (3 25 unit SC HS 08/10/21 08/10/21 History mL) subcutaneous pen (Lantus Solostar U-100 Insulin) insulin glargine 100 unit/mL (3 80 unit SC DAILY 08/10/21 08/10/21 History mL) subcutaneous pen (Lantus Solostar U-100 Insulin) insulin regular human 100 unit/mL 0 sliding scale dose SUBCUT ACHS 08/10/21 08/10/21 History (3 mL) subcutaneous pen (Novolin R Flexpen) insulin regular human 100 unit/mL 10 unit SUBCUT TIDM 08/10/21 08/10/21 History (3 mL) subcutaneous pen (Novolin R Flexpen) Patient History Medical History Abnormal chest x-ray 06/18/20 right hilar opacity, f/u recommended Anticoagulant long-term use Arthritis Atrial fibrillation paroxysmal Atrial flutter Bifascicular block CAD (coronary artery disease) Cardiac pacemaker in situ Cardiomyopathy Chronic anticoagulation Chronic diastolic CHF (congestive heart failure) Chronic venous insufficiency CKD (chronic kidney disease) stage 3, GFR 30-59 ml/min Claustrophobia Closed fracture of thyroid cartilage COPD, moderate Depression Diabetes mellitus, type 2 insulin pump Fatty liver Gout Hyperlipidemia Hypertension Hypothyroidism Iatrogenic pulmonary embolism Interstitial lung disease Morbid obesity MRSA infection Nephrolithiasis Nocturnal hypoxemia SALAS (obstructive sleep apnea) Osteoarthritis Paroxysmal atrial fibrillation Prolonged QT interval Pulmonary embolism B/L- 5+ years ago Sarcoidosis possible- evaluated by pulmonary; felt no active sarcoidosis and would not merit steroid therapy given weight/diabetic state. 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 "prior EF of 25% while in aflutter, subsequently normal in NSR" Surgical History H/O cardiac radiofrequency ablation H/O prior ablation treatment History of arthroscopic knee surgery History of bronchoscopy History of cataract surgery local anesthesia only per pt History of cholecystectomy History of extraction of renal calculus History of lung surgery thoracoscopy, right VATS, wedge resection History of umbilical hernia repair Hx of carpal tunnel repair Pacemaker Implanted 02/2017 secondary to Sinus node dysfunction/tachy sherry syndrome/3rd degree AVB [employer] Pacer check 12/24/17 Status post incision and drainage Family History Mother Cancer Social History Smoking Status: Never smoker Second Hand Exposure: No; Hx Alcohol Use: No Hx Substance Use: No Preferred Language: Wolof Communication Ability: Effective Visual Impairment: No Limitations Hearing Ability: Normal Bistro Server Required: No Beliefs That Will Affect Care: None marital status: Current Living Situation: Alone and Personal Care Facility Current Living Situation Comment: [facility] current occupational status: retired How many Children do You have: 2 Feels Safe at Home: Yes Safety Concerns: Feels Safe At This Time Diet Comment: FLUID RESTRICTION during the past year weight has: other Assistive Devices: None Physical Exam Physical Exam: On examination, the patient is a 71-year-old obese white male. He is sitting in his chair at the bedside. He is awake and alert. No acute distress. Pleasant and cooperative. On examination of the patient's left third finger, he has a blistered area that has since lost the initial portion of the skin. It extends from the distal tip approximately 1-1/2 to 2 cm proximally. It is approximately 1 cm in width. Cellulitis is noted around the finger itself. There is no open wound or drainage noted. There is no foul odor. A portion of the base of the wound is tannish and he has 1 darkened ecchymotic-looking area towards the distal portion of the phalanx. On palpation I cannot appreciate fluctuance but feels boggy. He does have some mild tenderness on palpation. Cap refill is less than 2 seconds. Patient does state he does have some numbness in his fingertips of which she has had over a long period of time. I cannot appreciate any kind of the wound where a foreign body may have entered. Of note he also has a small darkened blister on the finger tip of the fourth finger. There is no erythema surrounding this area. It appears to be filled with blood. He is able to take his finger through gentle range of motion with flexion and extension but has some only mild discomfort. No overt pain with passive flexion/ extension at this time. A dressing consisting of Adaptic, 2 x 2's, and Coban was placed over the third finger. Results & Data ([facility]) Vital Signs (Past 12 Hours) Vital Signs Temp Pulse Pulse Resp BP Pulse Ox 08/12/21 11:21 36.7 C 65 19 115/83 93 08/12/21 08:50 64 08/12/21 07:20 36.8 C 63 20 115/67 95 08/12/21 04:30 68 20 97 08/12/21 04:24 36.8 C 58 L 20 136/77 98 Diagnostic Findings Laboratory Results WBC 5.93 K/uL (4.8-10.8) 08/11/21 07:31 RBC 4.33 M/uL (4.7-6.1) L 08/11/21 07:31 Hgb 13.1 g/dL (14.0-18.0) L 08/11/21 07:31 Hct 40.5 % (42-52) L 08/11/21 07:31 MCV 93.5 fL (80-100) 08/11/21 07:31 MCH 30.3 pg (25-34) 08/11/21 07:31 MCHC 32.3 g/dL (32-36) 08/11/21 07: RDW Std Deviation 46.3 fL (36.4-46.3) 08/11/21 07:31 RDW Coeff of Baldo 13.4 % (11.5-14.5) 08/11/21 07:31 Plt Count 252 K/uL (130-400) 08/11/21 07:31 MPV 11.0 fL (7.4-10.4) H 08/11/21 07:31 Immature Gran % (Auto) 0.2 % 08/10/21 11:15 Neut % (Auto) 67.2 % 08/10/21 11:15 Lymph % (Auto) 18.3 % 08/10/21 11:15 Shelby % (Auto) 12.0 % 08/10/21 11:15 Eos % (Auto) 2.1 % 08/10/21 11:15 Baso % (Auto) 0.2 % 08/10/21 11:15 Neut # (Auto) 4.17 K/uL (1.4-6.5) 08/10/21 11:15 Lymph # (Auto) 1.13 K/uL (1.2-3.4) L 08/10/21 11:15 Shelby # (Auto) 0.74 K/uL (0.11-0.59) H 08/10/21 11:15 Eos # (Auto) 0.13 K/uL (0-0.5) 08/10/21 11:15 Baso # (Auto) 0.01 K/uL (0-0.2) 08/10/21 11:15 Immature Gran # (Auto) 0.01 K/uL (0.00-0.02) 08/10/21 11:15 PT 11.3 Seconds (9.0-12.0) 08/10/21 11:15 INR 1.1 (0.9-1.1) 08/10/21 11:15 Sodium 140 mmol/L (136-145) 08/12/21 06:30 Potassium 3.6 mmol/L (3.5-5.1) 08/12/21 06:30 Chloride 105 mmol/L (98-107) 08/12/21 06:30 Carbon Dioxide 26 mmol/L (21-32) 08/12/21 06:30 Anion Gap 9 (3-11) 08/12/21 06:30 BUN 31 mg/dl (6-23) H 08/12/21 06:30 Creatinine 1.43 mg/dl (0.6-1.4) H 08/12/21 06:30 Est Cr Clr Drug Dosing 66.4 ml/min 08/12/21 06:30 Est GFR ( Amer) 57.5 ml/min 08/12/21 06:30 Est GFR (Non-Af Amer) 49.6 ml/min 08/12/21 06:30 BUN/Creatinine Ratio 21.7 (10-20) H 08/12/21 06:30 Glucose 87 mg/dl (70-99(Fasting)) 08/12/21 06:30 POC Glucose 91 mg/dl (70-99) 08/12/21 11:37 Lactate 1.6 mmol/L (0.4-2.0) 08/10/21 11:42 Calcium 9.7 mg/dl (8.5-10.1) 08/12/21 06:30 Magnesium 1.9 mg/dl (1.7-2.4) 08/10/21 11:15 Total Bilirubin 1.6 mg/dl (0.2-1.0) H 08/10/21 11:15 Direct Bilirubin 0.4 mg/dl (0-0.2) H 08/10/21 11:15 AST 25 U/L (13-39) 08/12/21 06:30 ALT 19 U/L (7-52) 08/12/21 06:30 Alkaline Phosphatase 144 U/L (34-104) H 08/10/21 11:15 Troponin I < 0.03 ng/ml (0-0.04) 08/10/21 11:15 C-Reactive Protein 6.15 mg/dl (0-0.5) H 08/10/21 11:15 B-Natriuretic Peptide 333 pg/ml (0-100) H 08/10/21 15:04 Total Protein 7.1 gm/dl (6.0-8.3) 08/10/21 11:15 Albumin 3.5 gm/dl (3.4-5.0) 08/10/21 11:15 Lipase 7 U/L (11-82) L 08/10/21 11:15 Procalcitonin < 0.05 ng/ml (0-0.5) 08/10/21 11:15 Urine Color Dark Yellow 08/10/21 13:20 Urine Appearance Clear (Clear) 08/10/21 13:20 Urine pH 5.5 (4.5-7.5) 08/10/21 13:20 Ur Specific Victoria 1.015 (1.000-1.030) 08/10/21 13:20 Urine Protein Negative (Negative) 08/10/21 13:20 Urine Glucose (UA) Negative (Negative) 08/10/21 13:20 Urine Ketones Negative (Negative) 08/10/21 13:20 Urine Blood Negative (Negative) 08/10/21 13:20 Urine Nitrite Negative (Negative) 08/10/21 13:20 Urine Bilirubin Negative (Negative) 08/10/21 13:20 Urine Urobilinogen Negative (Negative) 08/10/21 13:20 Ur Leukocyte Esterase 1+ (Negative) H 08/10/21 13:20 Urine WBC (Auto) >30 /hpf (0-5) H 08/10/21 13:20 Urine RBC (Auto) 0-4 /hpf (0-4) 08/10/21 13:20 U Hyaline Cast (Auto) 5-10 /lpf (0-5) H 08/10/21 13:20 U Epithel Cells (Auto) 5-10 /lpf (0-5) H 08/10/21 13:20 Urine Bacteria (Auto) 1+ (Negative) H 08/10/21 13:20 SARS-CoV-2, RNA, NAAT POSITIVE (NEGATIVE) A* 08/10/21 11:34 Blood Type O Positive 08/10/21 11:42 Antibody Screen NEGATIVE 08/10/21 11:[address] 08/10/21 13:37 CT hand LT wo con HISTORY: 71 years-old Male left 3rd finger burn/cellulitis acute pain and swelling of the left hand third finger with reported cellulitis COMPARISON: None TECHNIQUE: Multiple axial CT images of the left hand were obtained without the use of IV contrast. A dose lowering technique was used consistent with the principals of JOY. FINDINGS: There is a 5 x 3 x 3 mm radiodense foreign body noted within the ulnar soft tissues of the third finger at the level of the distal phalanx. Additionally, there is mild subcutaneous edema of the distal third finger. No abscess. The soft tissues are otherwise unremarkable. The imaged flexor and extensor tendons appear intact. Arterial calcifications. Tendons and ligaments are not well dilated by CT technique. No tenosynovitis identified. Subcentimeter scaphoid bone island. Mild multifocal osteoarthritis. There is no acute fracture, dislocation or osseous erosion identified. IMPRESSION: 1. No acute fracture or dislocation. 2. Mild subcutaneous edema of the distal third finger with 5 mm foreign body. ACT 112: Negative or not required by law. The above report was generated using voice recognition software. It may contain grammatical, syntax or spelling errors. Electronically signed by: Bartolome Menchaca M.D. 08/10/2021 4:24 PM
[2021-08-12] MEDS: DAPTOmycin 400 MG in SYRINGE 0 ML IV SCH (12:30)
[2021-08-12] MEDS: REMDESIVIR 100 MG in SODIUM CHLORIDE 0.9% 230 ML IV SCH (12:31)
--- NOTE | 2021-08-12 13:01 | Hospitalist Progress Note ---
Date of Service August 12, 2021 Assessment & Plan (1) COVID-19: (2) Cellulitis of left middle finger: (3) Acute respiratory failure with hypoxia: Plan: 71-year-old with history of morbid obesity, HFpEF [TTE F 50 to 60%], SSS status post PPM/PE on anticoagulation, COPD/ILD, SALAS on CPAP, DM 2 on insulin, hypothyroidism, CKD [baseline 1.5-2], chronic anemia, who presented to the ED from the [facility] for concerns of nausea, shortness of breath, cough, left finger wound, diarrhea. He is being managed for the following: #. Pneumonia due to COVID-19 #. Acute respiratory failure with hypoxia Vaccine status/month: Received 2 vaccines; S/S : Started 3 days before [facility]; Tested Positive: 08/10 Admitting pro-Sreedhar: Negative Admitting imaging: CXR with no acute changes. Clinically, patient sitting up in chair on room air with , breath sounds getting better. Encourage every hour incentive spirometer/flutter valve/self proning as able Tessalon Perles and Mucinex for cough BNP: 333; Strict I's and O's; as needed IV Lasix; monitor BMP Monitor LFT daily when on remdesivir; sliding scale and glycemic pharmacy if needed when on steroid. c/w Dexamethasone 08/10 and Remdesivir 08/10. #. Foreign body left middle finger #. Cellulitis left middle finger Left middle finger blistered wound noted, concern of burn injury a week ago KIER BOILER Admitting CT head positive for 5 mm foreign body in the left middle finger Patient received daptomycin and cefepime in the ED, continue with Dapto 08/10 and Zosyn 08/11 Orthopedics evaluated, no intervention, c/w atb for now. Concern for metallic foreign body. Appreciate wound care input. #. DM type II insulin requiring Patient on steroid due to Covid, glycemic pharmacy consulted for diabetes management #. Other chronic medical conditions:CHF, tachycardia induced cardiomyopathy, A. fib, status post pacer, history of PE Continue with/resume home meds as and when appropriate. DVT prophylaxis: On Eliquis Full code Disposition: Medically pt stable, can be DC'd w/ ortho/wound care recommendation. PT/OT to [facility] to assist with DC planning. Will need Dapto and zosyn upon DC. 08/10: Patient's daughter Bing called over the phone, updated with the patient's status with the findings on the CT scan of his left hand, she voiced understanding and was agreeable to the plan of care. Admission and Anticipated Discharge Date Admission Date: August 10, 2021 Subjective Seen and examined at bedside for acute respiratory failure secondary to pneumonia secondary to COVID-19 virus infection and left middle finger cellulitis/foreign body. Patient sitting up in chair, on room air, NAD, no new acute events overnight. Patient reports no cough and diarrhea. Patient denies any fever/chills/chest pain/palpitations/belly pain/other review of symptoms. Patient reports some pain in his left middle finger but believes that it is under control. We can resume his diet. Physical Exam Physical Exam: GENERAL: Alert and oriented x3. NAD, on RA. HEENT: No pallor, no icterus. Pupils equal, round and reactive to light. Oral mucosa moist. NECK: No JVD, no neck masses. HEART: S1 and S2 heard. Regular rate and rhythm. No murmur, no gallop. RESPIRATORY SYSTEM: Normal AP diameter. No accessory muscle use. No wheezing, no crackles. decreased breath sounds --> better ABDOMEN: Soft, bowel sounds present, nontender, no distention. CENTRAL NERVOUS SYSTEM: No facial droop. Speech is clear. Obeys simple commands. Moves extremities. EXTREMITIES: No edema, no erythema seen. Chronic BLE skin changes. Lt 3rd middle finger (mid and distal phalanx) -- with clean dressing without soakage Results & Data Results & Data ([facility]) Vital Signs (Past 12 Hours) Vital Signs Temp Pulse Pulse Resp BP Pulse Ox 08/12/21 11:21 36.7 C 65 19 115/83 93 08/12/21 08:50 64 08/12/21 07:20 36.8 C 63 20 115/67 95 08/12/21 04:30 68 20 97 08/12/21 04:24 36.8 C 58 L 20 136/77 98
--- NOTE | 2021-08-12 13:24 | Pharmacy Report ---
Pharmacy Glycemic Short Note 2 - Date of Service August 12, 2021 - Glycemic Short BSG Results (Last 24 hours): 08/11/21 08/11/21 08/12/21 16:52 20:14 06:30 Glucose 87 POC Glucose 121 H 113 H 08/12/21 08/12/21 07:31 11:37 Glucose POC Glucose 82 91 OUTPATIENT ANTIDIABETIC REGIMEN: * Lantus 80 units SC AM + 25 units SC HS * Regular insulin 10 units SC TID + SSI * HbA1c = 9.5% (07/12/21) ASSESSMENT: 08/12: * Received a total of 201 units of insulin yesterday (105 units Lantus + 40 units NPH + 56 units Novolog). BSGs were: 274-761-053-113 mg/dL. * Fasting BSG well below goal at 82 mg/dL this AM. Will back off on Lantus dosing significantly today as patient was NPO this AM. Diet resumed at lunch. * No change to Novolog but will add an overnight check. 08/11: * 71 year old male admitted with COVID pneumonia. Type 2 DM known to glycemic service from prior admissions * Previously on insulin drip yesterday evening, insulin drip held early this AM by provider. Pharmacy now consulted to help with glycemic management * BSG 113 mg/dL - will resume home basal insulin. Steroids continued, dex 6 mg daily - will add NPH 0.4 unit/kg adj bw daily to help cover steroids * Insulin drip rate fluctuating yesterday from 3-7 units/hr. Steroids also given yesterday. Last drip rate before insulin drip was on hold was ~3 units/hr * Will start novolog with stress of 2 dosing of home basal dose, likely will need to titrate PLAN FOR INPATIENT GLYCEMIC CONTROL: * Basal insulin - decreased * Lantus 40 units SC AM * Lantus 15-20 units SC HS (15 units for BSG less than 180 mg/dL) * NPH 20 units SC daily - give with dexamethasone (hold if dexamethasone held or discontinued) * Bolus insulin - add * NovoLog per scale ACHS or Q6hrs while NPO * Goal Range: Low 110 mg/dL - High 140 mg/dL * Correction Factor: 10 mg/dL/unit * Nutritional / Prandial insulin per carb ratio of 1 unit per 4 grams CHO consumed PLAN FOR DISCHARGE: * HbA1c was 9.5% at the end of June 2021, up from 8% in February 2021. Goal HbA1c would be 7-8% for this patient. * Patient was switched from U-500 to basal bolus insulin this month during a previous admission. No changes recommended at this time unless patient is experiencing hypoglycemia at home.
[2021-08-12] MEDS: DIGOXIN 0.125 MG TAB PO SCH (17:05)
[2021-08-12] MEDS: INSULIN GLARGINE 100 UNIT/ML VIAL SC SCH (21:34)
[2021-08-13] MEDS: ACETAMINOPHEN 325 MG TAB PO PRN ×2 (00:31→10:49)
[2021-08-13] MEDS ORDERED: INSULIN ASPART PER UNIT SC ONE (02:00)
[2021-08-13] MEDS: PIPERACILLIN/TAZOBACTAM 4.5 GM in DEXTROSE 5% 100 ML IV SCH ×3 (06:15→22:28)
[2021-08-13] MEDS: LEVOTHYROXINE SODIUM 50 MCG TABLET PO SCH (06:15)
[2021-08-13] MEDS: LEVOTHYROXINE SODIUM 200 MCG TABLET PO SCH (06:16)
[2021-08-13] MEDS ORDERED: INSULIN HUMAN NPH SC SCH (09:00)
[2021-08-13] MEDS: SPIRONOLACTONE 25 MG TAB PO SCH (09:22)
[2021-08-13] MEDS: POTASSIUM CHLORIDE CRTAB 20 MEQ TABCR PO SCH ×2 (09:22→20:38)
[2021-08-13] MEDS: OXYBUTYNIN CHLORIDE XL 5 MG TABCR PO SCH (09:22)
[2021-08-13] MEDS: PANTOprazole 40 MG TAB PO SCH (09:22)
[2021-08-13] MEDS: MAGNESIUM OXIDE 400 MG TAB PO SCH (09:22)
[2021-08-13] MEDS: METOPROLOL SUCC 50MG EXT REL TAB PO SCH ×2 (09:22→20:38)
[2021-08-13] MEDS: CHOLECALCIFEROL 1,000 UNITS 25 MCG TAB PO SCH (09:23)
[2021-08-13] MEDS: buPROPion XL 150 MG TABCR PO SCH (09:23)
[2021-08-13] MEDS: DULoxetine HCL 60 MG CAP PO SCH (09:23)
[2021-08-13] MEDS: FUROSEMIDE 80 MG TAB PO SCH ×2 (09:23→17:53)
[2021-08-13] MEDS: GABAPENTIN 300 MG CAP PO SCH ×3 (09:23→20:37)
[2021-08-13] MEDS: ASPIRIN 81 MG ECTAB PO SCH (09:23)
[2021-08-13] MEDS: allopurinoL 300 MG TAB PO SCH (09:24)
[2021-08-13] MEDS: APIXABAN 5 MG TABLET PO SCH ×2 (09:24→20:37)
[2021-08-13] MEDS: INSULIN ASPART PER UNIT SC SCH ×4 (10:43→20:35)
[2021-08-13 10:44] LABS: Alanine Aminotransferase 37 U/L (7-52); Anion Gap 8 (3-11); BUN Creatinine Ratio 24.3 (10-20); Blood Urea Nitrogen 41 mg/dl (6-23); Calcium 9.7 mg/dl (8.5-10.1); Carbon Dioxide 29 mmol/L (21-32); Chloride 101 mmol/L (98-107); Creatinine Clr Calc Pharmacy 56.3 ml/min; Est GFR (Non-African American) 40.5 ml/min; Glucose 115 mg/dl (70-99(Fasting)); Sodium 138 mmol/L (136-145)
[2021-08-13] MEDS: INSULIN GLARGINE 100 UNIT/ML VIAL SC SCH ×2 (10:44→20:35)
[2021-08-13] MEDS: dexAMETHasone 6 MG in SYRINGE 0 ML IV SCH (10:49)
--- NOTE | 2021-08-13 11:06 | Pharmacy Report ---
Pharmacy Glycemic Short Note 2 - Date of Service August 13, 2021 - Glycemic Short BSG Results (Last 24 hours): 08/12/21 08/12/21 08/12/21 11:37 17:14 20:15 Glucose POC Glucose 91 185 H 277 H 08/13/21 08/13/21 08/13/21 01:44 07:56 08:53 Glucose 115 H POC Glucose 187 H 124 H OUTPATIENT ANTIDIABETIC REGIMEN: * Lantus 80 units SC AM + 25 units SC HS * Regular insulin 10 units SC TID + SSI * HbA1c = 9.5% (07/12/21) ASSESSMENT: 08/13: * Received 114 units of insulin yesterday (60 units Lantus + 20 units NPH + 34 units Novolog). This was a significant decrease from the previous day due to NPO in the AM, fasting BSG below goal and low appetite yesterday. BSGs yesterday were: [phone] mg/dL. * Fasting improved to 124 mg/dL today - at goal. Will increase Lantus and NPH this AM given increased appetite and probable basal deficiency from yesterday. * If PM BSGs trend upward again this evening, will tighten Novolog. 08/12: * Received a total of 201 units of insulin yesterday (105 units Lantus + 40 units NPH + 56 units Novolog). BSGs were: 025-254-919-113 mg/dL. * Fasting BSG well below goal at 82 mg/dL this AM. Will back off on Lantus dosing significantly today as patient was NPO this AM. Diet resumed at lunch. * No change to Novolog but will add an overnight check. 08/11: * 71 year old male admitted with COVID pneumonia. Type 2 DM known to glycemic service from prior admissions * Previously on insulin drip yesterday evening, insulin drip held early this AM by provider. Pharmacy now consulted to help with glycemic management * BSG 113 mg/dL - will resume home basal insulin. Steroids continued, dex 6 mg daily - will add NPH 0.4 unit/kg adj bw daily to help cover steroids * Insulin drip rate fluctuating yesterday from 3-7 units/hr. Steroids also given yesterday. Last drip rate before insulin drip was on hold was ~3 units/hr * Will start novolog with stress of 2 dosing of home basal dose, likely will need to titrate PLAN FOR INPATIENT GLYCEMIC CONTROL: * Basal insulin - increased * Lantus 60 units SC AM * Lantus 20-25 units SC HS (20 units for BSG less than 180 mg/dL) * NPH 40 units SC daily - give with dexamethasone (hold if dexamethasone held or discontinued) * Bolus insulin * NovoLog per scale ACHS or Q6hrs while NPO * Goal Range: Low 110 mg/dL - High 140 mg/dL * Correction Factor: 10 mg/dL/unit * Nutritional / Prandial insulin per carb ratio of 1 unit per 4 grams CHO consumed PLAN FOR DISCHARGE: * HbA1c was 9.5% at the end of June 2021, up from 8% in February 2021. Goal HbA1c would be 7-8% for this patient. * Patient was switched from U-500 to basal bolus insulin this month during a previous admission. No changes recommended at this time unless patient is experiencing hypoglycemia at home.
[2021-08-13 12:14] LABS: Potassium 3.6 mmol/L (3.5-5.1)
[2021-08-13] MEDS: REMDESIVIR 100 MG in SODIUM CHLORIDE 0.9% 230 ML IV SCH (12:51)
[2021-08-13] MEDS: DAPTOmycin 400 MG in SYRINGE 0 ML IV SCH (12:51)
--- NOTE | 2021-08-13 13:37 | Hospitalist Progress Note ---
Date of Service August 13, 2021 Assessment & Plan (1) COVID-19: (2) Cellulitis of left middle finger: (3) Acute respiratory failure with hypoxia: Plan: 71-year-old with history of morbid obesity, HFpEF [TTE F 50 to 60%], SSS status post PPM/PE on anticoagulation, COPD/ILD, SALAS on CPAP, DM 2 on insulin, hypothyroidism, CKD [baseline 1.5-2], chronic anemia, who presented to the ED from the [facility] for concerns of nausea, shortness of breath, cough, left finger wound, diarrhea. He is being managed for the following: #. Pneumonia due to COVID-19 #. 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 Clinically, patient sitting up in chair on room air with , breath sounds getting better. Encourage every hour incentive spirometer/flutter valve/self proning as able Tessalon Perles and Mucinex for cough BNP: 333; Strict I's and O's; as needed IV Lasix; monitor BMP Monitor LFT daily when on remdesivir; sliding scale and glycemic pharmacy if needed when on steroid. Will DC Dexa and Remdesivir; Pt on RA for last 2 days; Dexamethasone 08/10 - 08/13; Remdesivir 08/10 - 08/13 #. Foreign body left middle finger #. 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 Concern for metallic foreign body. d/w ortho -- f/u with Ortho as OP Appreciate wound care input. #. DM type II insulin requiring Patient on steroid due to Covid, glycemic pharmacy consulted for diabetes management #. Other chronic medical conditions:CHF, tachycardia induced cardiomyopathy, A. fib, status post pacer, history of PE Continue with/resume home meds as and when appropriate. DVT prophylaxis: On Eliquis Full code Disposition: Medically pt stable, can be DC'd w/ ortho/wound care recommendation. PT/OT to CARLEE oakley to assist with DC planning. Will need Dapto and zosyn upon DC. 08/10: Patient's daughter Bing called over the phone, updated with the patient's status with the findings on the CT scan of his left hand, she voiced understanding and was agreeable to the plan of care. Admission and Anticipated Discharge Date Admission Date: August 10, 2021 Subjective Seen and examined at bedside for acute respiratory failure secondary to pneumonia secondary to COVID-19 virus infection and left middle finger cellulitis/foreign body. Patient sitting up in chair, on room air, NAD, no new acute events overnight. Patient reports no cough and diarrhea. Patient denies any fever/chills/chest pain/palpitations/belly pain/other review of symptoms. Physical Exam Physical Exam: GENERAL: Alert and oriented x3. NAD, on RA. HEENT: No pallor, no icterus. Pupils equal, round and reactive to light. Oral mucosa moist. NECK: No JVD, no neck masses. HEART: S1 and S2 heard. Regular rate and rhythm. No murmur, no gallop. RESPIRATORY SYSTEM: Normal AP diameter. No accessory muscle use. No wheezing, no crackles. decreased breath sounds --> better ABDOMEN: Soft, bowel sounds present, nontender, no distention. CENTRAL NERVOUS SYSTEM: No facial droop. Speech is clear. Obeys simple commands. Moves extremities. EXTREMITIES: No edema, no erythema seen. Chronic BLE skin changes. Lt 3rd middle finger (mid and distal phalanx) -- with clean dressing without soakage; blister also noted on distal phalanx of left 2nd finger. Results & Data Results & Data ([facility]) Vital Signs (Past 12 Hours) Vital Signs Temp Pulse Pulse Resp BP Pulse Ox 08/13/21 11:24 36.5 C 64 19 117/72 97 08/13/21 07:25 36.5 C 66 19 120/60 99 08/13/21 04:09 36.6 C 74 20 138/81 93 08/13/21 03:44 64
[2021-08-13] MEDS: DIGOXIN 0.125 MG TAB PO SCH (17:53)
[2021-08-14] MEDS: PIPERACILLIN/TAZOBACTAM 4.5 GM in DEXTROSE 5% 100 ML IV SCH ×3 (06:12→22:37)
[2021-08-14] MEDS: LEVOTHYROXINE SODIUM 200 MCG TABLET PO SCH (06:12)
[2021-08-14] MEDS: LEVOTHYROXINE SODIUM 50 MCG TABLET PO SCH (06:12)
[2021-08-14] MEDS: allopurinoL 300 MG TAB PO SCH (08:27)
[2021-08-14] MEDS: CHOLECALCIFEROL 1,000 UNITS 25 MCG TAB PO SCH (08:28)
[2021-08-14] MEDS: buPROPion XL 150 MG TABCR PO SCH (08:28)
[2021-08-14] MEDS: ASPIRIN 81 MG ECTAB PO SCH (08:28)
[2021-08-14] MEDS: DULoxetine HCL 60 MG CAP PO SCH (08:28)
[2021-08-14 08:29] LABS: BUN Creatinine Ratio 30.1 (10-20); Calcium 9.5 mg/dl (8.5-10.1); Creatinine Clr Calc Pharmacy 71.1 ml/min; Est GFR (African American) 62.8 ml/min; Est GFR (Non-African American) 54.2 ml/min; Potassium 3.4 mmol/L (3.5-5.1)
[2021-08-14] MEDS: APIXABAN 5 MG TABLET PO SCH ×2 (08:29→20:36)
[2021-08-14] MEDS: FUROSEMIDE 80 MG TAB PO SCH ×2 (08:29→17:33)
[2021-08-14] MEDS: METOPROLOL SUCC 50MG EXT REL TAB PO SCH ×2 (08:30→20:36)
[2021-08-14] MEDS: GABAPENTIN 300 MG CAP PO SCH ×3 (08:30→20:36)
[2021-08-14] MEDS: MAGNESIUM OXIDE 400 MG TAB PO SCH (08:30)
[2021-08-14] MEDS: PANTOprazole 40 MG TAB PO SCH (08:31)
[2021-08-14] MEDS: OXYBUTYNIN CHLORIDE XL 5 MG TABCR PO SCH (08:31)
[2021-08-14] MEDS: POTASSIUM CHLORIDE CRTAB 20 MEQ TABCR PO SCH ×2 (08:31→20:35)
[2021-08-14] MEDS: SPIRONOLACTONE 25 MG TAB PO SCH (08:32)
[2021-08-14] MEDS: INSULIN ASPART PER UNIT SC SCH ×4 (08:44→20:35)
[2021-08-14] MEDS: INSULIN GLARGINE 100 UNIT/ML VIAL SC SCH (08:45)
--- NOTE | 2021-08-14 11:12 | Orthopedic Progress Note ---
Date of Service August 14, 2021 Assessment & Plan (1) Cellulitis of left middle finger: Plan: Continue daily dressing changes. Continue wound care to the index finger Continue antibiotics at this time and watch the finger for now for signs of worsening or no further progress of healing. I am unsure of when or how he obtained the foreign body in his finger. Patient is unsure at this time. Admission and Anticipated Discharge Date Admission Date: August 10, 2021 Subjective Patient sitting in his chair at the bedside. Awake and alert. No complaints. He feels that he has less pain in his left index finger. Physical Exam Physical Exam: Seen and removed. Overall improvement in how the finger is looking. His area of darkened demarcation is declaring itself and is approximately a centimeter in length and about 8 mm in width. Initial white base of the finger appears smaller to me today. He has more of a pink base around the edges at this time and his erythema is much less. Fourth finger blister noted on the fingertip appears to be a little bit plant safety leader in color. No erythema. Palpation of the finger is less painful and I cannot appreciate fluid pocket. The oshea/white base portion is firm to boggy on palpation. Wound redressed with Adaptic, 4 x 4's, [place] wrap and Coban. Results & Data ([facility]) Vital Signs (Past 12 Hours) Vital Signs Temp Pulse Pulse Resp BP Pulse Ox 08/14/21 08:53 97 08/14/21 07:41 36.5 C 74 19 128/83 89 L 08/14/21 03:30 36.7 C 82 20 132/61 96 08/14/21 01:11 74
[2021-08-14] MEDS: DAPTOmycin 400 MG in SYRINGE 0 ML IV SCH (12:55)
--- NOTE | 2021-08-14 13:46 | Hospitalist Progress Note ---
Date of Service August 14, 2021 Assessment & Plan (1) COVID-19: (2) Cellulitis of left middle finger: (3) Acute respiratory failure with hypoxia: Plan: 71-year-old with history of morbid obesity, HFpEF [TTE 1EF 50 to 60%], SSS status post PPM/PE on anticoagulation, COPD/ILD, SALAS on CPAP, DM 2 on insulin, hypothyroidism, CKD [baseline 1.5-2], chronic anemia, who presented to the ED from the [facility] for concerns of nausea, shortness of breath, cough, left finger wound, diarrhea. He is being managed for the following: #.COVID 19 infection #. 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 Was briefly on dexamethasone and remdesivir on admission but that had been discontinued Currently on room air #. Foreign body left middle finger #. 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 lipitor on hold Monitory labs periodically as long as on dapto Orthopedics evaluated. Concern for metallic foreign body. Patient unsure about how he got this too. Discussed with ortho team who had discussed with one of the hand surgeons. No intervention for now Continue wound care #. DM type II insulin requiring Manage per insulin protocol #. Other chronic medical conditions:CHF, tachycardia induced cardiomyopathy, A. fib, status post pacer, history of PE Continue with/resume home meds as and when appropriate. DVT prophylaxis: On Eliquis Full code Disposition: Medically pt stable, CM to assist with DC planning. Admission and Anticipated Discharge Date Admission Date: August 10, 2021 Subjective Patient seen and examined. Reports some cough. Reports some pain in the left middle finger. Reports chronic pain in the hand joints Denies any fevers, chills, nausea, vomiting, abdominal pain, diarrhea Denies any shortness of breath, chest pain, palpitations Denies dysuria, frequency, urgency Physical Exam Constitutional: + well hydrated and + obese; no acute distress Eyes: PERRL, conjunctivae normal, anicteric sclerae ENMT: external ear and nose normal, oropharynx normal Respiratory: normal respiratory effort, lungs clear to auscultation Cardiovascular: Rate/Rhythm: regular rate and regular rhythm S1 S2 Gastrointestinal (Abdomen): normal bowel sounds, soft, nontender, no hepatosplenomegaly Musculoskeletal: Left middle finger bandaged Blister on tip of left 4th finger Neurologic: PERRL, EOMI, accommodation nl, no face palsy, no dysarthria Psychiatric: A+Ox3, euthymic affect Results & Data Results & Data ([facility]) Vital Signs (Past 12 Hours) Vital Signs Temp Pulse Resp BP Pulse Ox 08/14/21 11:46 36.4 C L 70 19 134/67 98 08/14/21 08:53 97 08/14/21 07:41 36.5 C 74 19 128/83 89 L 08/14/21 03:30 36.7 C 82 20 132/61 96
[2021-08-14] MEDS: ACETAMINOPHEN 325 MG TAB PO PRN (14:02)
--- NOTE | 2021-08-14 14:17 | Pharmacy Report ---
Pharmacy Glycemic Short Note 2 - Date of Service August 14, 2021 - Glycemic Short BSG Results (Last 24 hours): 08/13/21 08/13/21 08/14/21 16:43 20:02 07:28 Glucose 100 H POC Glucose 183 H 273 H 08/14/21 08/14/21 07:50 11:47 Glucose POC Glucose 94 152 H OUTPATIENT ANTIDIABETIC REGIMEN: * Lantus 80 units SC AM + 25 units SC HS * Regular insulin 10 units SC TID + SSI * HbA1c = 9.5% (07/12/21) ASSESSMENT: 08/14: * Received 210 units of insulin yesterday (85 Lantus + 40 NPH + 85 Novolog). BSGs were labile: [phone] mg/dL. * Steroids were discontinued today. Therefore, discontinued NPH. * Fasting BSG was below goal at 94 mg/dL this AM. Will reduce HS Lantus scale. * Given postprandial hyperglycemia at multiple points throughout the day over the last 48 hours, will tighten carb ratio starting with dinner. 08/13: * Received 114 units of insulin yesterday (60 units Lantus + 20 units NPH + 34 units Novolog). This was a significant decrease from the previous day due to NPO in the AM, fasting BSG below goal and low appetite yesterday. BSGs yesterday were: [phone] mg/dL. * Fasting improved to 124 mg/dL today - at goal. Will increase Lantus and NPH this AM given increased appetite and probable basal deficiency from yesterday. * If PM BSGs trend upward again this evening, will tighten Novolog. 08/12: * Received a total of 201 units of insulin yesterday (105 units Lantus + 40 units NPH + 56 units Novolog). BSGs were: [phone] mg/dL. * Fasting BSG well below goal at 82 mg/dL this AM. Will back off on Lantus dosing significantly today as patient was NPO this AM. Diet resumed at lunch. * No change to Novolog but will add an overnight check. 08/11: * 71 year old male admitted with COVID pneumonia. Type 2 DM known to glycemic service from prior admissions * Previously on insulin drip yesterday evening, insulin drip held early this AM by provider. Pharmacy now consulted to help with glycemic management * BSG 113 mg/dL - will resume home basal insulin. Steroids continued, dex 6 mg daily - will add NPH 0.4 unit/kg adj bw daily to help cover steroids * Insulin drip rate fluctuating yesterday from 3-7 units/hr. Steroids also given yesterday. Last drip rate before insulin drip was on hold was ~3 units/hr * Will start novolog with stress of 2 dosing of home basal dose, likely will need to titrate PLAN FOR INPATIENT GLYCEMIC CONTROL: * Basal insulin - decreased Lantus; d/c NPH * Lantus 60 units SC AM * Lantus 15-20 units SC HS (15 units for BSG less than 180 mg/dL) * Bolus insulin - tightened CR * NovoLog per scale ACHS or Q6hrs while NPO * Goal Range: Low 110 mg/dL - High 140 mg/dL * Correction Factor: 10 mg/dL/unit * Nutritional / Prandial insulin per carb ratio of 1 unit per 3 grams CHO consumed PLAN FOR DISCHARGE: * HbA1c was 9.5% at the end of June 2021, up from 8% in February 2021. Goal HbA1c would be 7-8% for this patient. * Patient was switched from U-500 to basal bolus insulin this month during a previous admission. No changes recommended at this time unless patient is experiencing hypoglycemia at home.
[2021-08-14] MEDS: DIGOXIN 0.125 MG TAB PO SCH (17:32)
[2021-08-14] MEDS: traMADol HCL 50 MG TABLET PO PRN (17:40)
[2021-08-15] MEDS: LEVOTHYROXINE SODIUM 50 MCG TABLET PO SCH (05:57)
[2021-08-15] MEDS: LEVOTHYROXINE SODIUM 200 MCG TABLET PO SCH (05:57)
[2021-08-15] MEDS: PIPERACILLIN/TAZOBACTAM 4.5 GM in DEXTROSE 5% 100 ML IV SCH ×3 (06:05→23:26)
[2021-08-15 07:58] LABS: Hematocrit (blood only) 44.8 % (42-52); Hemoglobin 14.5 g/dL (14.0-18.0); Mean Corpuscular Hemoglobin 30.2 pg (25-34); Mean Corpuscular Hgb Conc 32.4 g/dL (32-36); Mean Corpuscular Volume 93.3 fL (80-100); Mean Platelet Volume 10.9 fL (7.4-10.4); Platelet Count 312 K/uL (130-400); RDW Coefficient of Variation 13.5 % (11.5-14.5); RDW Standard Deviation 46.3 fL (36.4-46.3); White Blood Count 10.69 K/uL (4.8-10.8)
[2021-08-15 08:21] LABS: BUN Creatinine Ratio 28.9 (10-20); C Reactive Protein 0.67 mg/dl (0-0.5); Calcium 9.6 mg/dl (8.5-10.1); Creatinine Clr Calc Pharmacy 62.2 ml/min; Est GFR (African American) 53.4 ml/min; Est GFR (Non-African American) 46.1 ml/min; Potassium 3.7 mmol/L (3.5-5.1)
[2021-08-15] MEDS: traMADol HCL 50 MG TABLET PO PRN ×2 (08:34→17:46)
[2021-08-15] MEDS: METOPROLOL SUCC 50MG EXT REL TAB PO SCH ×2 (08:35→20:13)
[2021-08-15] MEDS: GABAPENTIN 300 MG CAP PO SCH ×3 (08:35→20:13)
[2021-08-15] MEDS: allopurinoL 300 MG TAB PO SCH (08:36)
[2021-08-15] MEDS: POTASSIUM CHLORIDE CRTAB 20 MEQ TABCR PO SCH ×2 (08:36→20:13)
[2021-08-15] MEDS: buPROPion XL 150 MG TABCR PO SCH (08:36)
[2021-08-15] MEDS: MAGNESIUM OXIDE 400 MG TAB PO SCH (08:36)
[2021-08-15] MEDS: ASPIRIN 81 MG ECTAB PO SCH (08:36)
[2021-08-15] MEDS: DULoxetine HCL 60 MG CAP PO SCH (08:36)
[2021-08-15] MEDS: FUROSEMIDE 80 MG TAB PO SCH ×2 (08:37→17:45)
[2021-08-15] MEDS: PANTOprazole 40 MG TAB PO SCH (08:37)
[2021-08-15] MEDS: SPIRONOLACTONE 25 MG TAB PO SCH (08:37)
[2021-08-15] MEDS: CHOLECALCIFEROL 1,000 UNITS 25 MCG TAB PO SCH (08:37)
[2021-08-15] MEDS: OXYBUTYNIN CHLORIDE XL 5 MG TABCR PO SCH (08:37)
[2021-08-15] MEDS: APIXABAN 5 MG TABLET PO SCH ×2 (08:42→20:13)
[2021-08-15] MEDS: INSULIN ASPART PER UNIT SC SCH ×4 (09:42→21:24)
[2021-08-15] MEDS: INSULIN GLARGINE 100 UNIT/ML VIAL SC SCH (09:43)
[2021-08-15] MEDS: DAPTOmycin 400 MG in SYRINGE 0 ML IV SCH (11:39)
--- NOTE | 2021-08-15 12:32 | Pharmacy Report ---
Pharmacy Glycemic Short Note 2 - Date of Service August 15, 2021 - Glycemic Short BSG Results (Last 24 hours): 08/14/21 08/14/21 08/15/21 16:55 20:00 07:33 Glucose 84 POC Glucose 103 H 87 08/15/21 08/15/21 08:05 11:46 Glucose POC Glucose 82 149 H OUTPATIENT ANTIDIABETIC REGIMEN: * Lantus 80 units SC AM + 25 units SC HS * Regular insulin 10 units SC TID + SSI * HbA1c = 9.5% (07/12/21) ASSESSMENT: 08/15/21: * Insulin needs have decreased significantly since the discontinuation of dexamethasone. * Pt received 93 units of insulin yesterday vs. 210 units the day prior. BSGs have been within or below goal past 24 hours. * Lantus dose was reduced this morning. Novolog parameters have been loosened to provide less insulin. * Will continue to adjust as needed. 08/14 * Received 210 units of insulin yesterday (85 Lantus + 40 NPH + 85 Novolog). BSGs were labile: [phone] mg/dL. * Steroids were discontinued today. Therefore, discontinued NPH. * Fasting BSG was below goal at 94 mg/dL this AM. Will reduce HS Lantus scale. * Given postprandial hyperglycemia at multiple points throughout the day over the last 48 hours, will tighten carb ratio starting with dinner. 08/13 * Received 114 units of insulin yesterday (60 units Lantus + 20 units NPH + 34 units Novolog). This was a significant decrease from the previous day due to NPO in the AM, fasting BSG below goal and low appetite yesterday. BSGs yesterday were: 32-77-303-277 mg/dL. * Fasting improved to 124 mg/dL today - at goal. Will increase Lantus and NPH this AM given increased appetite and probable basal deficiency from yesterday. * If PM BSGs trend upward again this evening, will tighten Novolog. 08/12 * Received a total of 201 units of insulin yesterday (105 units Lantus + 40 units NPH + 56 units Novolog). BSGs were: [phone] mg/dL. * Fasting BSG well below goal at 82 mg/dL this AM. Will back off on Lantus dosing significantly today as patient was NPO this AM. Diet resumed at lunch. * No change to Novolog but will add an overnight check. 08/11 * 71 year old male admitted with COVID pneumonia. Type 2 DM known to glycemic service from prior admissions * Previously on insulin drip yesterday evening, insulin drip held early this AM by provider. Pharmacy now consulted to help with glycemic management * BSG 113 mg/dL - will resume home basal insulin. Steroids continued, dex 6 mg daily - will add NPH 0.4 unit/kg adj bw daily to help cover steroids * Insulin drip rate fluctuating yesterday from 3-7 units/hr. Steroids also given yesterday. Last drip rate before insulin drip was on hold was ~3 units/hr * Will start novolog with stress of 2 dosing of home basal dose, likely will need to titrate PLAN FOR INPATIENT GLYCEMIC CONTROL: * Basal insulin - decreased * Lantus 50 units SC AM * Bolus insulin - * NovoLog per scale ACHS or Q6hrs while NPO * Goal Range: Low 110 mg/dL - High 140 mg/dL * Correction Factor: 20 mg/dL/unit * Nutritional / Prandial insulin per carb ratio of 1 unit per 6 grams CHO consumed PLAN FOR DISCHARGE: * HbA1c was 9.5% at the end of June 2021, up from 8% in February 2021. Goal HbA1c would be 7-8% for this patient. * Patient was switched from U-500 to basal bolus insulin this month during a previous admission. No changes recommended at this time unless patient is experiencing hypoglycemia at home. * Recommend prompt f/u with outpt provider after discharge to work toward optimizing A1c.
--- NOTE | 2021-08-15 12:57 | Hospitalist Progress Note ---
Date of Service August 15, 2021 Assessment & Plan (1) COVID-19: (2) Cellulitis of left middle finger: (3) Acute respiratory failure with hypoxia: Plan: 71-year-old with history of morbid obesity, HFpEF [TTE 1EF 50 to 60%], SSS status post PPM/PE on anticoagulation, COPD/ILD, SALAS on CPAP, DM 2 on insulin, hypothyroidism, CKD [baseline 1.5-2], chronic anemia, who presented to the ED from the [facility] for concerns of nausea, shortness of breath, cough, left finger wound, diarrhea. He is being managed for the following: #.COVID 19 infection #. 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 Was briefly on dexamethasone and remdesivir on admission but that had been discontinued Currently on room air #. Foreign body left middle finger #. 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 Lipitor on hold Orthopedics evaluated. Concern for metallic foreign body. Patient unsure about how he got this too. Discussed with ortho team who had discussed with one of the hand surgeons. No intervention for now Continue wound care CRP improved from 6 to 0.6 Continue antibiotics for now to complete at least 7 days of treatment. #. DM type II insulin requiring Manage per insulin protocol #. Other chronic medical conditions:CHF, tachycardia induced cardiomyopathy, A. fib, status post pacer, history of PE, CKD3 Continue with home meds DVT prophylaxis: On Eliquis Full code Disposition: Medically pt stable, CM to assist with DC planning. Admission and Anticipated Discharge Date Admission Date: August 10, 2021 Subjective Patient seen and examined. Reports some cough. Reports some pain in the left middle finger and chronic hand joints pains are controlled Denies any fevers, chills, nausea, vomiting, abdominal pain, diarrhea Denies any shortness of breath, chest pain, palpitations Denies dysuria, frequency, urgency Physical Exam Constitutional: + well hydrated and + obese; no acute distress Eyes: PERRL, conjunctivae normal, anicteric sclerae ENMT: external ear and nose normal, oropharynx normal Respiratory: normal respiratory effort, lungs clear to auscultation Cardiovascular: Rate/Rhythm: regular rate and regular rhythm S1 S2 Gastrointestinal (Abdomen): normal bowel sounds, soft, nontender, no hepatosplenomegaly Musculoskeletal: Wound on radio-plantar side of left middle finger, no drainage, appear to be healing well Blister on tip of left 4th finger Neurologic: PERRL, EOMI, accommodation nl, no face palsy, no dysarthria Psychiatric: A+Ox3, euthymic affect Results & Data Results & Data ([facility]) Vital Signs (Past 12 Hours) Vital Signs Temp Pulse Resp BP Pulse Ox 08/15/21 11:19 36.6 C 62 20 128/62 93 08/15/21 08:08 36.5 C 64 19 108/71 96 08/15/21 03:50 36.4 C L 68 16 123/62 91 Laboratory Results Abnormal lab results 08/14/21 08/15/21 08/15/21 Range/Units 16:55 07:33 07:33 MPV 10.9 H (7.4-10.4) fL BUN 44 H (6-23) mg/dl Creatinine 1.52 H (0.6-1.4) mg/dl BUN/Creatinine Ratio 28.9 H (10-20) POC Glucose 103 H (70-99) mg/dl C-Reactive Protein 0.67 H (0-0.5) mg/dl 08/15/21 Range/Units 11:46 MPV (7.4-10.4) fL BUN (6-23) mg/dl Creatinine (0.6-1.4) mg/dl BUN/Creatinine Ratio (10-20) POC Glucose 149 H (70-99) mg/dl C-Reactive Protein (0-0.5) mg/dl
[2021-08-15] MEDS: DIGOXIN 0.125 MG TAB PO SCH (15:53)
[2021-08-16] MEDS: traMADol HCL 50 MG TABLET PO PRN (03:49)
[2021-08-16] MEDS: LEVOTHYROXINE SODIUM 50 MCG TABLET PO SCH (06:04)
[2021-08-16] MEDS: PIPERACILLIN/TAZOBACTAM 4.5 GM in DEXTROSE 5% 100 ML IV SCH ×3 (06:04→22:52)
[2021-08-16] MEDS: LEVOTHYROXINE SODIUM 200 MCG TABLET PO SCH (06:05)
[2021-08-16] MEDS: INSULIN ASPART PER UNIT SC SCH ×4 (08:36→20:52)
[2021-08-16] MEDS: POTASSIUM CHLORIDE CRTAB 20 MEQ TABCR PO SCH ×2 (08:49→20:52)
[2021-08-16] MEDS: GABAPENTIN 300 MG CAP PO SCH ×3 (08:50→20:52)
[2021-08-16] MEDS: METOPROLOL SUCC 50MG EXT REL TAB PO SCH ×2 (08:50→20:53)
[2021-08-16] MEDS: FUROSEMIDE 80 MG TAB PO SCH ×2 (08:51→17:54)
[2021-08-16] MEDS: APIXABAN 5 MG TABLET PO SCH ×2 (08:51→20:52)
[2021-08-16] MEDS: CHOLECALCIFEROL 1,000 UNITS 25 MCG TAB PO SCH (08:52)
[2021-08-16] MEDS: buPROPion XL 150 MG TABCR PO SCH (08:52)
[2021-08-16] MEDS: PANTOprazole 40 MG TAB PO SCH (08:52)
[2021-08-16] MEDS: OXYBUTYNIN CHLORIDE XL 5 MG TABCR PO SCH (08:53)
[2021-08-16] MEDS: allopurinoL 300 MG TAB PO SCH (08:53)
[2021-08-16] MEDS: MAGNESIUM OXIDE 400 MG TAB PO SCH (08:54)
[2021-08-16] MEDS: DULoxetine HCL 60 MG CAP PO SCH (08:54)
[2021-08-16] MEDS: ASPIRIN 81 MG ECTAB PO SCH (08:54)
[2021-08-16] MEDS: INSULIN GLARGINE 100 UNIT/ML VIAL SC SCH (09:45)
[2021-08-16] MEDS: DAPTOmycin 400 MG in SYRINGE 0 ML IV SCH (12:44)
[2021-08-16] MEDS: SPIRONOLACTONE 25 MG TAB PO SCH (12:45)
[2021-08-16] MEDS: DOCUSATE SODIUM/SENNA 50/8.6MG TAB PO SCH (12:45)
--- NOTE | 2021-08-16 13:34 | Orthopedic Progress Note ---
Date of Service August 16, 2021 Assessment & Plan (1) Cellulitis of left middle finger: Plan: Continue daily dressing changes. Continue wound care to the index finger Discussed case with Dr. Szymanski. Continuing IV antibx until Thursday. Planning for discharge thereafter. No plans for surgical debridement at this time but will likely be needed down the road and possible skin grafting. Continue to let finger demarcate for now. Admission and Anticipated Discharge Date Admission Date: August 10, 2021 Subjective Pt sitting in chair at beside. No complaints currently. Physical Exam Physical Exam: left middle finger dressing removed. Wound continues to decrease in size. Slowly demarcating. No purulence noted. No drainage. Mild pain on palpation over the dorsum of the finger. Results & Data ([facility]) Vital Signs (Past 12 Hours) Vital Signs Temp Pulse Pulse Resp BP BP Pulse Ox 08/16/21 11:32 37.1 C 62 18 114/74 97 08/16/21 07:11 36.7 C 86 19 115/70 94 08/16/21 02:33 69 08/16/21 02:20 36.5 C 72 18 97/77 L 90
[2021-08-16] MEDS: DIGOXIN 0.125 MG TAB PO SCH (15:19)
--- NOTE | 2021-08-16 15:28 | Hospitalist Progress Note ---
Date of Service August 16, 2021 Assessment & Plan (1) COVID-19: (2) Cellulitis of left middle finger: (3) Acute respiratory failure with hypoxia: Plan: 71-year-old with history of morbid obesity, HFpEF [TTE F 50 to 60%], SSS status post PPM/PE on anticoagulation, COPD/ILD, SALAS on CPAP, DM 2 on insulin, hypothyroidism, CKD [baseline 1.5-2], chronic anemia, who presented to the ED from the [facility] for concerns of nausea, shortness of breath, cough, left finger wound, diarrhea. He is being managed for the following: #.COVID 19 infection #. 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 Was briefly on dexamethasone and remdesivir on admission but that had been discontinued Currently on room air #. Foreign body left middle finger #. Cellulitis left middle finger Left middle finger blistered wound noted, concern of burn injury a week C[employer]IFIED NURSES' AIDE Admitting CT head positive for 5 mm foreign body in the left middle finger Patient is not sure how he got the injury or foreign body Currently on dapto and zosyn. Lipitor on hold Orthopedics evaluated. Concern for metallic foreign body. Patient unsure about how he got this too. Discussed with ortho team who had discussed with one of the hand surgeons. No intervention for now ?If this is old or new. Patient reports he is involved in lots of gun shows. Unclear if related. patient does not even recall how he got the wound Continue wound care CRP improved from 6 to 0.6 Will continue antibiotics to complete 10 days therapy prior to dc considering it is complicated infection #. DM type II insulin requiring Manage per insulin protocol #. Other chronic medical conditions:CHF, tachycardia induced cardiomyopathy, A. fib, status post pacer, history of PE, CKD3 Continue with home meds DVT prophylaxis: On Eliquis Full code Admission and Anticipated Discharge Date Admission Date: August 10, 2021 Subjective Patient seen and examined. Reports some cough. Reports some pain in the left middle finger is controlled Denies any fevers, chills, nausea, vomiting, abdominal pain, diarrhea Denies any shortness of breath, chest pain, palpitations Denies dysuria, frequency, urgency Physical Exam Constitutional: + well hydrated and + obese; no acute distress Eyes: PERRL, conjunctivae normal, anicteric sclerae ENMT: external ear and nose normal, oropharynx normal Respiratory: normal respiratory effort, lungs clear to auscultation Cardiovascular: Rate/Rhythm: regular rate and regular rhythm S1 S2 Gastrointestinal (Abdomen): normal bowel sounds, soft, nontender, no hepatosplenomegaly Skin: Wound on radio-plantar side of left middle finger, no drainage Blister on tip of left 4th finger Neurologic: PERRL, EOMI, accommodation nl, no face palsy, no dysarthria Psychiatric: A+Ox3, euthymic affect Results & Data Results & Data ([facility]) Vital Signs (Past 12 Hours) Vital Signs Temp Pulse Pulse Resp BP BP Pulse Ox 08/16/21 15:19 75 08/16/21 11:32 37.1 C 62 18 114/74 97 08/16/21 07:11 36.7 C 86 19 115/70 94 Laboratory Results Abnormal lab results 08/15/21 08/15/21 08/16/21 Range/Units 16:44 20:08 08:18 POC Glucose 113 H 145 H 111 H (70-99) mg/dl 08/16/21 Range/Units 11:29 POC Glucose 145 H (70-99) mg/dl
[2021-08-16] MEDS: POLYETHYLENE (MIRALAX) 17 GM PACK PO PRN (17:53)
[2021-08-17] MEDS: PIPERACILLIN/TAZOBACTAM 4.5 GM in DEXTROSE 5% 100 ML IV SCH ×3 (06:21→23:57)
[2021-08-17] MEDS: LEVOTHYROXINE SODIUM 50 MCG TABLET PO SCH (06:21)
[2021-08-17] MEDS: LEVOTHYROXINE SODIUM 200 MCG TABLET PO SCH (06:21)
[2021-08-17 07:49] LABS: Hematocrit (blood only) 42.7 % (42-52); Hemoglobin 13.8 g/dL (14.0-18.0); Mean Corpuscular Hemoglobin 30.3 pg (25-34); Mean Corpuscular Hgb Conc 32.3 g/dL (32-36); Mean Corpuscular Volume 93.8 fL (80-100); Mean Platelet Volume 10.5 fL (7.4-10.4); Platelet Count 222 K/uL (130-400); RDW Coefficient of Variation 13.5 % (11.5-14.5); Red Blood Count 4.55 M/uL (4.7-6.1); White Blood Count 8.27 K/uL (4.8-10.8)
[2021-08-17] MEDS: METOPROLOL SUCC 50MG EXT REL TAB PO SCH ×2 (07:51→22:00)
[2021-08-17] MEDS: POTASSIUM CHLORIDE CRTAB 20 MEQ TABCR PO SCH ×2 (07:52→21:59)
[2021-08-17] MEDS: buPROPion XL 150 MG TABCR PO SCH (07:53)
[2021-08-17] MEDS: APIXABAN 5 MG TABLET PO SCH ×2 (07:53→22:01)
[2021-08-17] MEDS: DOCUSATE SODIUM/SENNA 50/8.6MG TAB PO SCH (07:53)
[2021-08-17] MEDS: PANTOprazole 40 MG TAB PO SCH (07:53)
[2021-08-17] MEDS: GABAPENTIN 300 MG CAP PO SCH ×3 (07:53→22:00)
[2021-08-17] MEDS: ASPIRIN 81 MG ECTAB PO SCH (07:54)
[2021-08-17] MEDS: MAGNESIUM OXIDE 400 MG TAB PO SCH (07:54)
[2021-08-17] MEDS: DULoxetine HCL 60 MG CAP PO SCH (07:54)
[2021-08-17] MEDS: allopurinoL 300 MG TAB PO SCH (07:54)
[2021-08-17] MEDS: OXYBUTYNIN CHLORIDE XL 5 MG TABCR PO SCH (07:55)
[2021-08-17] MEDS: CHOLECALCIFEROL 1,000 UNITS 25 MCG TAB PO SCH (07:55)
[2021-08-17 08:08] LABS: BUN Creatinine Ratio 24.5 (10-20); Calcium 9.4 mg/dl (8.5-10.1); Creatinine Clr Calc Pharmacy 60.8 ml/min; Est GFR (African American) 52.2 ml/min; Potassium 3.6 mmol/L (3.5-5.1)
[2021-08-17] MEDS ORDERED: INSULIN GLARGINE 100 UNIT/ML VIAL SC SCH (09:00)
[2021-08-17] MEDS: INSULIN ASPART PER UNIT SC SCH ×4 (09:40→22:10)
[2021-08-17] MEDS: FUROSEMIDE 80 MG TAB PO SCH ×2 (09:43→16:11)
[2021-08-17] MEDS: SPIRONOLACTONE 25 MG TAB PO SCH (09:43)
--- NOTE | 2021-08-17 10:04 | Hospitalist Progress Note ---
Date of Service August 17, 2021 Assessment & Plan (1) COVID-19: (2) Cellulitis of left middle finger: (3) Acute respiratory failure with hypoxia: Plan: 71-year-old with history of morbid obesity, HFpEF [TTE F 50 to 60%], SSS status post PPM/PE on anticoagulation, COPD/ILD, SALAS on CPAP, DM 2 on insulin, hypothyroidism, CKD [baseline 1.5-2], chronic anemia, who presented to the ED from the [facility] for concerns of nausea, shortness of breath, cough, left finger wound, diarrhea. He is being managed for the following: #.COVID 19 infection #. 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 Was briefly on dexamethasone and remdesivir on admission but that had been discontinued Currently on room air #. Foreign body left middle finger #. Cellulitis left middle finger Left middle finger blistered wound noted, concern of burn injury a week [employer] D[employer] PER[employer] Admitting CT head positive for 5 mm foreign body in the left middle finger Patient is not sure how he got the injury or foreign body Currently on dapto and zosyn. Lipitor on hold Orthopedics evaluated. Concern for metallic foreign body. Patient unsure about how he got this too. Discussed with ortho team who had discussed with one of the hand surgeons. No intervention for now ?If this is old or new. Patient reports he is involved in lots of gun shows. Unclear if related. patient does not even recall how he got the wound Continue wound care CRP improved from 6 to 0.6 Will continue antibiotics to complete 10 days therapy prior to dc considering it is complicated infection #. DM type II insulin requiring Manage per insulin protocol #. Other chronic medical conditions:CHF, tachycardia induced cardiomyopathy, A. fib, status post pacer, history of PE, CKD3 Continue with home meds Had Low BP reading this morning Denied any symptoms. Will monitor for now. Patient currently on home meds DVT prophylaxis: On Eliquis Full code Admission and Anticipated Discharge Date Admission Date: August 10, 2021 Subjective Patient seen and examined. Reports cough is improving Reports some pain in the left middle finger is controlled Denies any fevers, chills, nausea, vomiting, abdominal pain, diarrhea Denies any shortness of breath, chest pain, palpitations Denies dysuria, frequency, urgency Physical Exam Constitutional: + well hydrated and + obese; no acute distress Eyes: PERRL, conjunctivae normal, anicteric sclerae ENMT: external ear and nose normal, oropharynx normal Respiratory: normal respiratory effort, lungs clear to auscultation Cardiovascular: Rate/Rhythm: regular rate and regular rhythm S1 S2 Gastrointestinal (Abdomen): normal bowel sounds, soft, nontender, no hepatosplenomegaly Musculoskeletal: Wound on radio-plantar side of left middle finger, no drainage Blister on tip of left 4th finger Neurologic: PERRL, EOMI, accommodation nl, no face palsy, no dysarthria Psychiatric: A+Ox3, euthymic affect Results & Data Results & Data ([facility]) Vital Signs (Past 12 Hours) Vital Signs Temp Pulse Resp BP Pulse Ox 08/17/21 09:50 124/77 08/17/21 07:59 97/58 L 08/17/21 07:40 36.5 C 71 22 72/52 L 94 08/17/21 03:30 36.8 C 67 18 118/63 97 08/16/21 22:56 36.4 C L 62 15 108/79 94 Laboratory Results Abnormal lab results 08/17/21 08/17/21 08/17/21 Range/Units 07:31 07:31 07:37 RBC 4.55 L (4.7-6.1) M/uL Hgb 13.8 L (14.0-18.0) g/dL MPV 10.5 H (7.4-10.4) fL BUN 38 H (6-23) mg/dl Creatinine 1.55 H (0.6-1.4) mg/dl BUN/Creatinine Ratio 24.5 H (10-20) Glucose 128 H (70-99(Fasting)) mg/dl POC Glucose 117 H (70-99) mg/dl 08/17/21 Range/Units 11:54 RBC (4.7-6.1) M/uL Hgb (14.0-18.0) g/dL MPV (7.4-10.4) fL BUN (6-23) mg/dl Creatinine (0.6-1.4) mg/dl BUN/Creatinine Ratio (10-20) Glucose (70-99(Fasting)) mg/dl POC Glucose 178 H (70-99) mg/dl
--- NOTE | 2021-08-17 11:09 | Pharmacy Report ---
Pharmacy Glycemic Short Note 2 - Date of Service August 17, 2021 - Glycemic Short BSG Results (Last 24 hours): 08/16/21 08/16/21 08/16/21 11:29 16:50 20:05 Glucose POC Glucose 145 H 73 90 08/17/21 08/17/21 07:31 07:37 Glucose 128 H POC Glucose 117 H OUTPATIENT ANTIDIABETIC REGIMEN: * Lantus 80 units SC AM + 25 units SC HS * Regular insulin 10 units SC TID + SSI * HbA1c = 9.5% (07/12/21) ASSESSMENT: 08/17 * BSGs trended down yesterday, 111, 145, 73, and 90 mg/dL * Fasting BSG of 117 mg/dL this morning * Insulin needs are significantly reduced currently relative to prior inpatient BSG data * Will decrease basal today and loosen Novolog parameters 2/ * Insulin needs have decreased significantly since the discontinuation of dexamethasone. * Pt received 93 units of insulin yesterday vs. 210 units the day prior. BSGs have been within or below goal past 24 hours. * Lantus dose was reduced this morning. Novolog parameters have been loosened to provide less insulin. * Will continue to adjust as needed. 08/14 * Received 210 units of insulin yesterday (85 Lantus + 40 NPH + 85 Novolog). BSGs were labile: [phone] mg/dL. * Steroids were discontinued today. Therefore, discontinued NPH. * Fasting BSG was below goal at 94 mg/dL this AM. Will reduce HS Lantus scale. * Given postprandial hyperglycemia at multiple points throughout the day over the last 48 hours, will tighten carb ratio starting with dinner. 08/11 * 71 year old male admitted with COVID pneumonia. Type 2 DM known to glycemic service from prior admissions * Previously on insulin drip yesterday evening, insulin drip held early this AM by provider. Pharmacy now consulted to help with glycemic management * BSG 113 mg/dL - will resume home basal insulin. Steroids continued, dex 6 mg daily - will add NPH 0.4 unit/kg adj bw daily to help cover steroids * Insulin drip rate fluctuating yesterday from 3-7 units/hr. Steroids also given yesterday. Last drip rate before insulin drip was on hold was ~3 units/hr * Will start novolog with stress of 2 dosing of home basal dose, likely will need to titrate PLAN FOR INPATIENT GLYCEMIC CONTROL: * Basal insulin - decrease * Lantus 45 units SC AM * Bolus insulin - loosen * NovoLog per scale ACHS or Q6hrs while NPO * Goal Range: Low 110 mg/dL - High 140 mg/dL * Correction Factor: 20 mg/dL/unit * Nutritional / Prandial insulin per carb ratio of 1 unit per 7 grams CHO consumed PLAN FOR DISCHARGE: * HbA1c was 9.5% at the end of June 2021, up from 8% in February 2021. Goal HbA1c would be 7-8% for this patient. * Patient was switched from U-500 to basal bolus insulin this month during a previous admission. No changes recommended at this time unless patient is experiencing hypoglycemia at home. * Recommend prompt f/u with outpt provider after discharge to work toward optimizing A1c.
[2021-08-17] MEDS: DAPTOmycin 400 MG in SYRINGE 0 ML IV SCH (12:59)
[2021-08-17] MEDS: DIGOXIN 0.125 MG TAB PO SCH (16:10)
[2021-08-17] MEDS: ACETAMINOPHEN 325 MG TAB PO PRN (16:59)
[2021-08-18] MEDS: PIPERACILLIN/TAZOBACTAM 4.5 GM in DEXTROSE 5% 100 ML IV SCH ×3 (06:13→22:44)
[2021-08-18] MEDS: LEVOTHYROXINE SODIUM 50 MCG TABLET PO SCH (06:13)
[2021-08-18] MEDS: LEVOTHYROXINE SODIUM 200 MCG TABLET PO SCH (06:13)
[2021-08-18 07:35] LABS: Hematocrit (blood only) 40.2 % (42-52); Mean Corpuscular Hemoglobin 30.3 pg (25-34); Mean Corpuscular Hgb Conc 32.3 g/dL (32-36); Mean Corpuscular Volume 93.7 fL (80-100); Mean Platelet Volume 10.8 fL (7.4-10.4); Platelet Count 209 K/uL (130-400); RDW Coefficient of Variation 13.6 % (11.5-14.5); RDW Standard Deviation 46.6 fL (36.4-46.3); Red Blood Count 4.29 M/uL (4.7-6.1); White Blood Count 7.51 K/uL (4.8-10.8)
[2021-08-18 07:55] LABS: BUN Creatinine Ratio 25.7 (10-20); Calcium 9.5 mg/dl (8.5-10.1); Est GFR (African American) 55.2 ml/min; Est GFR (Non-African American) 47.6 ml/min; Potassium 3.5 mmol/L (3.5-5.1)
[2021-08-18] MEDS: INSULIN ASPART PER UNIT SC SCH ×4 (08:18→21:36)
[2021-08-18] MEDS: FUROSEMIDE 80 MG TAB PO SCH ×2 (08:34→18:12)
[2021-08-18] MEDS: CHOLECALCIFEROL 1,000 UNITS 25 MCG TAB PO SCH (08:34)
[2021-08-18] MEDS: DULoxetine HCL 60 MG CAP PO SCH (08:34)
[2021-08-18] MEDS: OXYBUTYNIN CHLORIDE XL 5 MG TABCR PO SCH (08:35)
[2021-08-18] MEDS: POTASSIUM CHLORIDE CRTAB 20 MEQ TABCR PO SCH ×2 (08:35→21:43)
[2021-08-18] MEDS: buPROPion XL 150 MG TABCR PO SCH (08:35)
[2021-08-18] MEDS: MAGNESIUM OXIDE 400 MG TAB PO SCH (08:35)
[2021-08-18] MEDS: allopurinoL 300 MG TAB PO SCH (08:35)
[2021-08-18] MEDS: APIXABAN 5 MG TABLET PO SCH ×2 (08:35→21:43)
[2021-08-18] MEDS: DOCUSATE SODIUM/SENNA 50/8.6MG TAB PO SCH (08:36)
[2021-08-18] MEDS: METOPROLOL SUCC 50MG EXT REL TAB PO SCH ×2 (08:36→21:43)
[2021-08-18] MEDS: ASPIRIN 81 MG ECTAB PO SCH (08:36)
[2021-08-18] MEDS: SPIRONOLACTONE 25 MG TAB PO SCH (08:36)
[2021-08-18] MEDS: GABAPENTIN 300 MG CAP PO SCH ×3 (08:36→21:43)
[2021-08-18] MEDS: PANTOprazole 40 MG TAB PO SCH (08:36)
[2021-08-18] MEDS ORDERED: INSULIN GLARGINE 100 UNIT/ML VIAL SC SCH (09:00)
--- NOTE | 2021-08-18 10:05 | Hospitalist Progress Note ---
Date of Service August 18, 2021 Assessment & Plan (1) COVID-19: (2) Cellulitis of left middle finger: (3) Acute respiratory failure with hypoxia: Plan: 71-year-old with history of morbid obesity, HFpEF [TTE F 50 to 60%], SSS status post PPM/PE on anticoagulation, COPD/ILD, SALAS on CPAP, DM 2 on insulin, hypothyroidism, CKD [baseline 1.5-2], chronic anemia, who presented to the ED from the [facility] for concerns of nausea, shortness of breath, cough, left finger wound, diarrhea. He is being managed for the following: #.COVID 19 infection #. Acute respiratory failure with hypoxia - resolved Vaccine status/month: Received 2 vaccines; S/S : Started 3 days before [employer]ER; Tested Positive: 08/10 Admitting pro-Sreedhar: Negative Admitting imaging: CXR with no acute changes. Was briefly on dexamethasone and remdesivir on admission but that had been discontinued Currently on room air #. Foreign body left middle finger #. Cellulitis left middle finger Left middle finger blistered wound noted, concern of burn injury a week [employer] Admitting CT head positive for 5 mm foreign body in the left middle finger Patient is not sure how he got the injury or foreign body Currently on dapto and zosyn. Lipitor on hold Orthopedics evaluated. Concern for metallic foreign body. Patient unsure about how he got this too. Discussed with ortho team who had discussed with one of the hand surgeons. No intervention for now ?If this is old or new. Patient reports he is involved in lots of gun shows. Unclear if related. patient does not even recall how he got the wound Continue wound care CRP improved from 6 to 0.6 Will continue antibiotics to complete 10 days therapy by tomorrow prior to dc considering it is complicated infection Patient needs to follow up with hand surgeon outpatient Dr Paul #. DM type II insulin requiring Manage per insulin protocol Last A1c in 07/02 was 9.5 Counselled patient on need for optimal glycemic control for wound healing #. Other chronic medical conditions:CHF, tachycardia induced cardiomyopathy, A. fib, status post pacer, history of PE, CKD3 Continue with home meds DVT prophylaxis: On Eliquis Full code Admission and Anticipated Discharge Date Admission Date: August 10, 2021 Subjective Patient seen and examined. Reports only mild cough today Reports some pain in the left middle finger is controlled Denies any fevers, chills, nausea, vomiting, abdominal pain, diarrhea. Reports some constipation today Denies any shortness of breath, chest pain, palpitations Denies dysuria, frequency, urgency Physical Exam Constitutional: + well hydrated and + obese; no acute distress Eyes: PERRL, conjunctivae normal, anicteric sclerae ENMT: external ear and nose normal, oropharynx normal Respiratory: normal respiratory effort, lungs clear to auscultation Cardiovascular: Rate/Rhythm: regular rate and regular rhythm S1 S2 Gastrointestinal (Abdomen): normal bowel sounds, soft, nontender, no hepatosplenomegaly Musculoskeletal: Wound on radio-plantar side of left middle finger, no drainage, getting better dermarcated Blister on tip of left 4th finger Neurologic: PERRL, EOMI, accommodation nl, no face palsy, no dysarthria Psychiatric: A+Ox3, euthymic affect Results & Data Results & Data ([facility]) Vital Signs (Past 12 Hours) Vital Signs Temp Pulse Resp BP Pulse Ox 08/18/21 07:27 36.7 C 68 12 113/45 L 92 08/18/21 03:09 36.6 C 70 18 128/51 L 91 08/17/21 23:13 36.5 C 69 18 143/72 H 99 Laboratory Results Abnormal lab results 08/17/21 08/17/21 08/18/21 Range/Units 16:34 20:16 07:05 RBC 4.29 L (4.7-6.1) M/uL Hgb 13.0 L (14.0-18.0) g/dL Hct 40.2 L (42-52) % RDW Std Deviation 46.6 H (36.4-46.3) fL MPV 10.8 H (7.4-10.4) fL BUN (6-23) mg/dl Creatinine (0.6-1.4) mg/dl BUN/Creatinine Ratio (10-20) Glucose (70-99(Fasting)) mg/dl POC Glucose 171 H 181 H (70-99) mg/dl 08/18/21 08/18/21 08/18/21 Range/Units 07:05 07:33 11:48 RBC (4.7-6.1) M/uL Hgb (14.0-18.0) g/dL Hct (42-52) % RDW Std Deviation (36.4-46.3) fL MPV (7.4-10.4) fL BUN 38 H (6-23) mg/dl Creatinine 1.48 H (0.6-1.4) mg/dl BUN/Creatinine Ratio 25.7 H (10-20) Glucose 160 H (70-99(Fasting)) mg/dl POC Glucose 145 H 289 H (70-99) mg/dl 08/18/21 Range/Units 11:49 RBC (4.7-6.1) M/uL Hgb (14.0-18.0) g/dL Hct (42-52) % RDW Std Deviation (36.4-46.3) fL MPV (7.4-10.4) fL BUN (6-23) mg/dl Creatinine (0.6-1.4) mg/dl BUN/Creatinine Ratio (10-20) Glucose (70-99(Fasting)) mg/dl POC Glucose 261 H (70-99) mg/dl
[2021-08-18] MEDS: POLYETHYLENE (MIRALAX) 17 GM PACK PO PRN (12:18)
[2021-08-18] MEDS: DAPTOmycin 400 MG in SYRINGE 0 ML IV SCH (12:23)
[2021-08-18] MEDS: DIGOXIN 0.125 MG TAB PO SCH (15:47)
[2021-08-18] MEDS: ACETAMINOPHEN 325 MG TAB PO PRN ×2 (16:11→22:45)
[2021-08-19] MEDS: LEVOTHYROXINE SODIUM 50 MCG TABLET PO SCH (06:03)
[2021-08-19] MEDS: PIPERACILLIN/TAZOBACTAM 4.5 GM in DEXTROSE 5% 100 ML IV SCH (06:04)
[2021-08-19] MEDS: LEVOTHYROXINE SODIUM 200 MCG TABLET PO SCH (06:04)
[2021-08-19 08:23] LABS: Hematocrit (blood only) 41.9 % (42-52); Hemoglobin 13.5 g/dL (14.0-18.0); Mean Corpuscular Hemoglobin 30.3 pg (25-34); Mean Corpuscular Hgb Conc 32.2 g/dL (32-36); Mean Corpuscular Volume 93.9 fL (80-100); Mean Platelet Volume 10.8 fL (7.4-10.4); Platelet Count 202 K/uL (130-400); RDW Coefficient of Variation 13.4 % (11.5-14.5); Red Blood Count 4.46 M/uL (4.7-6.1); White Blood Count 7.69 K/uL (4.8-10.8)
[2021-08-19 08:37] LABS: BUN Creatinine Ratio 22.5 (10-20); Calcium 9.7 mg/dl (8.5-10.1); Creatinine Clr Calc Pharmacy 66.7 ml/min; Potassium 3.9 mmol/L (3.5-5.1)
[2021-08-19] MEDS: GABAPENTIN 300 MG CAP PO SCH ×2 (08:59→14:28)
[2021-08-19] MEDS: MAGNESIUM OXIDE 400 MG TAB PO SCH (08:59)
[2021-08-19] MEDS: allopurinoL 300 MG TAB PO SCH (08:59)
[2021-08-19] MEDS: FUROSEMIDE 80 MG TAB PO SCH (08:59)
[2021-08-19] MEDS: SPIRONOLACTONE 25 MG TAB PO SCH (08:59)
[2021-08-19] MEDS: OXYBUTYNIN CHLORIDE XL 5 MG TABCR PO SCH (08:59)
[2021-08-19] MEDS: POTASSIUM CHLORIDE CRTAB 20 MEQ TABCR PO SCH (08:59)
[2021-08-19] MEDS ORDERED: INSULIN GLARGINE 100 UNIT/ML VIAL SC SCH (09:00)
[2021-08-19] MEDS: CHOLECALCIFEROL 1,000 UNITS 25 MCG TAB PO SCH (09:00)
[2021-08-19] MEDS: ASPIRIN 81 MG ECTAB PO SCH (09:00)
[2021-08-19] MEDS: PANTOprazole 40 MG TAB PO SCH (09:01)
[2021-08-19] MEDS: APIXABAN 5 MG TABLET PO SCH (09:01)
[2021-08-19] MEDS: buPROPion XL 150 MG TABCR PO SCH (09:01)
[2021-08-19] MEDS: METOPROLOL SUCC 50MG EXT REL TAB PO SCH (09:01)
[2021-08-19] MEDS: DOCUSATE SODIUM/SENNA 50/8.6MG TAB PO SCH (09:01)
[2021-08-19] MEDS: DULoxetine HCL 60 MG CAP PO SCH (09:02)
[2021-08-19] MEDS: INSULIN ASPART PER UNIT SC SCH ×2 (09:53→12:30)
[2021-08-19] MEDS: DAPTOmycin 400 MG in SYRINGE 0 ML IV SCH (13:19)
--- NOTE | 2021-08-19 13:19 | Discharge Summary ---
Date of Service August 19, 2021 Admission HPI Per Admitting Provider 71-year-old medically complex male with PMH DM type II, CKD stage III, hypothyroidism, COPD, SALAS, tachycardia induced cardiomyopathy, HTN, chronic diastolic CHF, history of pulmonary embolism anticoagulated on Coumadin, paroxysmal atrial fibrillation, tachybradycardia syndrome s/p pacemaker, and other problems listed below who presents the ED for evaluation of nausea, shortness of breath, cough, left finger wound. Patient recently admitted to [facility] 07/27 through 07/31 for DKA and E. coli UTI. Patient was discharged to [facility] and was subsequently discharged to [facility] on 08/08/2021. Patient reports that his left finger wound has been present for about the past week. Patient seems to be unsure how this happened however there is some report that he may have burned himself on a hot plate. He has not received any treatment for this wound yet. Over the past 3 days, patient reports nausea, dry heaves, diarrhea, poor appetite. He also has had mild exertional shortness of breath and cough productive for a green sputum. No fevers or chills. Patient denies chest pain or palpitations. No lightheadedness, dizziness, diaphoresis, syncopal events. Denies abdominal pain and vomiting. No urinary symptoms. In the ED, patient was hypoxic on room air at 84%, he is currently requiring 2 L of oxygen via nasal cannula. Patient tested positive for COVID-19. He has received 2 COVID-19 vaccines however has not received third dose yet. Last dose was on 10/02/2020. CXR does not show any sign of pneumonia. Labs are essentially unremarkable/at patient's baseline. Patient was given IV dexamethasone and prophylactically started on insulin drip given his history of brittle diabetes. Admission Exam Per Admitting Provider Constitutional: WD/WN, vitals as above + obese; no acute distress Eyes: PERRL, conjunctivae normal, anicteric sclerae ENMT: external ear and nose normal, oropharynx normal Respiratory: normal respiratory effort, lungs clear to auscultation Cardiovascular: Rate/Rhythm: regular rate and + irregularly irregular Vessels: normal peripheral pulses Extremities: no edema Gastrointestinal (Abdomen): normal bowel sounds, soft, nontender, no hepatosplenomegaly Musculoskeletal: no cyanosis or clubbing, extremities motor strength 5/5 Open blister wound noted to left middle digit with surrounding erythema and edema Skin: no rashes, warm and dry Chronic venous changes BLE Neurologic: PERRL, EOMI, accommodation nl, no face palsy, no dysarthria Psychiatric: A+Ox3, euthymic affec Principal Diagnosis COVID 19 infection Aucte respiratory failure with hypoxia Left middle finger wound/cellulitis Discharge Exam Constitutional + well hydrated and + obese; no acute distress Eyes PERRL, conjunctivae normal, anicteric sclerae ENMT external ear and nose normal, oropharynx normal Respiratory normal respiratory effort, lungs clear to auscultation Cardiovascular Rate/Rhythm: regular rate and regular rhythm S1 S2 Gastrointestinal (Abdomen) normal bowel sounds, soft, nontender, no hepatosplenomegaly Musculoskeletal Wound on radio-plantar side of left middle finger, no drainage, getting better dermarcated Blister on tip of left 4th finger Neurologic PERRL, EOMI, accommodation nl, no face palsy, no dysarthria Psychiatric A+Ox3, euthymic affect Discharge Data Allergies Allergy/AdvReac Type Severity Reaction Status Date / Time No Known Allergies Allergy Verified 08/10/21 14:21 Consultations 08/10/21 12:58 ED Decision to Admit Stat 08/10/21 16:57 Consult Orthopedic Surgery Routine Ordered Studies 08/10/21 13:37 CT hand LT wo con Routine There is a 5 x 3 x 3 mm radiodense foreign body noted within the ulnar soft tissues of the third finger at the level of the distal phalanx. Additionally, there is mild subcutaneous edema of the distal third finger. No abscess. The soft tissues are otherwise unremarkable. The imaged flexor and extensor tendons appear intact. Arterial calcifications. Tendons and ligaments are not well dilated by CT technique. No tenosynovitis identified. Subcentimeter scaphoid bone island. Mild multifocal osteoarthritis. There is no acute fracture, dislocation or osseous erosion identified. IMPRESSION: 1. No acute fracture or dislocation. 2. Mild subcutaneous edema of the distal third finger with 5 mm foreign body. Hospital Course (1) COVID-19: (2) Cellulitis of left middle finger: (3) Acute respiratory failure with hypoxia: 71-year-old with history of morbid obesity, HFpEF [TTE 1EF 50 to 60%], SSS status post PPM/PE on anticoagulation, COPD/ILD, SALAS on CPAP, DM 2 on insulin, hypothyroidism, CKD [baseline 1.5-2], chronic anemia, who presented to the ED from the [facility] for concerns of nausea, shortness of breath, cough, left finger wound, diarrhea. He is being managed for the following: #.COVID 19 infection #. Acute respiratory failure with hypoxia - resolved Vaccine status/month: Received 2 vaccines; Symptoms started 3 days before CLINICAL ADMINISTRATIVE COORDINATOR; Tested Positive: 08/10 Admitting pro-Sreedhar: Negative Admitting imaging: CXR with no acute changes. Was briefly on dexamethasone and remdesivir on admission but that had been discontinued Currently on room air #. Foreign body left middle finger #. Cellulitis left middle finger Left middle finger blistered wound noted, concern of burn injury a week CLINICAL ADMINISTRATIVE COORDINATOR Admitting CT head positive for 5 mm foreign body in the left middle finger Patient is not sure how he got the injury or foreign body Orthopedics evaluated. Concern for metallic foreign body. Patient unsure about how he got this too. Discussed with ortho team who had discussed with one of the hand surgeons. No intervention for now ?If this is old or new. Patient reports he is involved in lots of gun shows. Unclear if related. patient does not even recall how he got the wound Continue wound care Was treated with daptomycin and zosyn for 10 days since infection is complicated CRP improved from 6 to 0.6 Patient needs to follow up with hand surgeon outpatient Dr Paul #. DM type II insulin requiring Manage per insulin protocol Last A1c in 07/02 was 9.5 Counselled patient on need for optimal glycemic control for wound healing #. Other chronic medical conditions:CHF, tachycardia induced cardiomyopathy, A. fib, status post pacer, history of PE, CKD3 Continue with home meds I called daughter and updated her about plans Total Time Total Time Spent Total Time Spent (In Minutes): 50 Total Time Includes: Examination of the Patient, Discharge Planning, Medication Reconciliation and Communication With Other Providers Discharge Plan Discharge Items Patient Disposition: Home - Self-Care Reason For Visit: Cough, left finger wound Discharge Diagnosis: COVID 19 infection Aucte respiratory failure with hypoxia Left middle finger wound/cellulitis Activity: Resume your previous activity Non-emergency contact: Primary Care Provider and Surgeon Call non-emergency contact if: you have any medication questions and your symptoms worsen Follow-up/Referrals: [facility] [Other] - 09/06/21 1:00 pm ([address], [address] [place] [address] ) Radha Salvador DO [Outside Practitioners] - (Date & Time 08/26/2021 2:20 PM Provider Radha Salvador DO Department Family Practice [address] [place] [address] Your previous provider, Dr Rodrick Grimm, does not see patients outside of [facility]. Your new provider is located in [place]. ) Pan Paul MD [Physician] - (Follow up in 1 week for finger wound check. ) Diet: Carb Consistent or DM2 and Heart Healthy Addtl Attending Provider Instructions: Mr Andujar. You came to the hospital complaining of cough and wound in your left middle finger. You were evaluated and found to have COVID 19 infection. Though your chest XRay did not show acute pneumonia, you required oxygen briefly and was treated with steroids very briefly. You had a complicated left middle finger infection and CT of your hand also showed a 5mm foreign body in the finger. You completed antibiotics in the hospital. However, it is very important that you follow up with the surgeon Dr Paul for continued management. Please ensure follow up with your Primary Doctor. It is important that your blood glucose is controlled as we discussed. It was a pleasure taking care of you. Pending Studies at Discharge: No Stand-Alone Forms: My [facility], Smoking Cessation Medications and DC Order Prescriptions: Continued aspirin [Adult Low Dose Aspirin] 81 mg tablet,delayed release (DR/EC) 81 mg PO QAM RF: 0 duloxetine 60 mg capsule,delayed release(DR/EC) 60 mg PO QAM RF: 0 cholecalciferol (vitamin D3) 2,000 unit capsule 2,000 units PO QAM RF: 0 oxybutynin chloride [Ditropan XL] 10 mg tablet extended release 24hr 10 mg PO DAILY RF: 0 digoxin 125 mcg Tablet 0.125 mg PO QPM Qty: 0 RF: 0 levothyroxine 200 mcg tablet 200 mcg PO QAM Qty: 0 RF: 0 allopurinol 300 mg tablet 300 mg PO QAM RF: 0 omeprazole 20 mg capsule,delayed release(DR/EC) 20 mg PO QAM RF: 0 atorvastatin 20 mg tablet 20 mg PO HS RF: 0 meclizine 12.5 mg tablet 12.5 mg PO TID PRN (Reason: headaches) RF: 0 albuterol sulfate 90 mcg/actuation HFA aerosol inhaler 2 puffs INH QID PRN (Reason: Shortness Of Breath Or Wheezing) RF: 0 levothyroxine 50 mcg tablet 50 mcg PO QAM RF: 0 metoprolol succinate 100 mg tablet extended release 24 hr 150 mg PO BID RF: 0 bupropion HCl 150 mg tablet extended release 24 hr 150 mg PO QAM RF: 0 potassium chloride [Klor-Con M20] 20 mEq tablet,ER particles/crystals 20 meq PO BID RF: 0 nitroglycerin 0.4 mg tablet, sublingual 0.4 mg sublingual UD PRN (Reason: Chest Pain) RF: 0 Multiple Vitamin-Minerals Tablet 1 tab PO DAILY RF: 0 sennosides-docusate sodium [Senna with Docusate Sodium] 8.6-50 mg Tablet 1 tab-cap PO BID RF: 0 nystatin 100,000 unit/gram Powder 1 applic TOPICAL BID RF: 0 acetaminophen 325 mg Tablet 650 mg PO Q4H PRN (Reason: pain) RF: 0 Novolin R Flexpen 100 unit/mL (3 mL) Insulin Pen 0 sliding scale dose subcut ACHS RF: 0 Novolin R Flexpen 100 unit/mL (3 mL) Insulin Pen 10 unit SUBCUT TIDM RF: 0 Lantus Solostar U-100 Insulin 100 unit/mL (3 mL) insulin pen 80 unit SC DAILY RF: 0 Lantus Solostar U-100 Insulin 100 unit/mL (3 mL) insulin pen 25 unit SC HS RF: 0 metolazone 2.5 mg Tablet 2.5 mg PO DAILY PRN (Reason: WT GAIN 3#/24 HRS OR 5#/48 HRS.) RF: 0 magnesium oxide 400 mg magnesium Tablet 400 mg PO DAILY RF: 0 spironolactone [Aldactone] 25 mg tablet 25 mg PO DAILY RF: 0 furosemide 80 mg tablet 80 mg PO BID RF: 0 apixaban 5 mg Tablet 5 mg PO BID RF: 0 gabapentin 300 mg capsule 300 mg PO TID RF: 0 (DME) blood-glucose meter [Contour Next Glucose Meter] Kit See Rx Instructions .Route Qty: 1 RF: 0 (DME) Contour Next Test Strips Strip See Rx Instructions .Route Qty: 50 RF: 3 (DME) lancets [Microlet Lancet] Misc See Rx Instructions .Route Qty: 100 RF: 1 Discharge Orders: Discharge Order (Routine); Ordered 08/19/21 Ordered By: Rasheeda Keith Admission Data Admit Date/Time: 08/10/21 13:02 Attending Provider: Rasheeda Keith I. Admit Provider: Sanford Sunshine Primary Care Provider: Pura Willingham Other Providers: Sanford Sunshine ; Peter Rodriguez ; [facility] Other Interventions: Discharge Summary Assessment (RN) Last Done: 08/19/21 15:04
--- NOTE | 2021-08-29 15:54 | Coding Query ---
To promote full compliance with coding requirements relating to patient care, provider participation is requested in all cases of obiee report developer uncertainty. Please assist us with the question(s) below: Coding Question(s): The diagnosis(es) below was documented in the H&P supervising physician documentation through Progress Notes on 08/13, then subsequently fell off all further documentation. Please indicate if it is still a possible diagnosis or ruled out. Physician's Response(s): PNEUMONIA - (Pneumonia due to Covid-19 is documented by the Supervising Physician on the H&P and on the Progress Notes through 08/13, then drops off documentation and the Discharge Summary documents, "You were evaluated and found to have COVID 19 infection. Though your chest XRay did not show acute pneumonia, you required oxygen briefly and was treated with steroids very briefly". It is not clear if Pneumonia due to Covid-19 was ruled-out) ( ) Diagnosed and POA ( ) Diagnosed and not POA ( x ) Ruled out ( ) Other (please specify) MTDD
== END 2021-08-19 15:30 | disposition home or self-care (01) | DRG 177 ==
LOC: ED 10:48 → EDINP 13:02 → SUATTDRO 13:02 → 2S 16:14

== ENCOUNTER 2021-11-13 06:10 | Observation (INO) ==
[2021-11-13 06:49] LABS: Basophils # (auto) 0.02 K/uL (0-0.2); Basophils % (auto) 0.2 %; Eosinophils # (auto) 0.15 K/uL (0-0.5); Eosinophils % (auto) 1.8 %; Hematocrit (blood only) 41.1 % (42-52); Hemoglobin 13.2 g/dL (14.0-18.0); Immature Granulocytes # (auto) 0.02 K/uL (0.00-0.02); Immature Granulocytes % (auto) 0.2 %; Lymphocytes # (auto) 1.54 K/uL (1.2-3.4); Lymphocytes % (auto) 18.3 %; Mean Corpuscular Hemoglobin 28.8 pg (25-34); Mean Corpuscular Hgb Conc 32.1 g/dL (32-36); Mean Corpuscular Volume 89.5 fL (80-100); Mean Platelet Volume 11.2 fL (7.4-10.4); Monocytes # (auto) 0.75 K/uL (0.11-0.59); Monocytes % (auto) 8.9 %; Neutrophils # (auto) 5.95 K/uL (1.4-6.5); Neutrophils % (auto) 70.6 %; Platelet Count 195 K/uL (130-400); RDW Coefficient of Variation 13.9 % (11.5-14.5); RDW Standard Deviation 45.8 fL (36.4-46.3); Red Blood Count 4.59 M/uL (4.7-6.1); White Blood Count 8.43 K/uL (4.8-10.8)
[2021-11-13] MEDS ORDERED: SODIUM CHLORIDE 0.9% 250 ML IV ONE (06:51)
[2021-11-13 06:57] LABS: INR 1.1 (0.9-1.1); Partial Thromboplastin Ratio 1.2; Prothrombin Time 11.4 Seconds (9.0-12.0)
[2021-11-13 07:14] LABS: Alanine Aminotransferase 12 U/L (7-52); Albumin Level 3.6 gm/dl (3.4-5.0); Alkaline Phosphatase 110 U/L (34-104); Anion Gap 9 (3-11); Aspartate Aminotransferase 17 U/L (13-39); BUN Creatinine Ratio 27.2 (10-20); Blood Urea Nitrogen 44 mg/dl (6-23); Calcium 9.6 mg/dl (8.5-10.1); Carbon Dioxide 36 mmol/L (21-32); Chloride 90 mmol/L (98-107); Est GFR (African American) 49.5 ml/min; Est GFR (Non-African American) 42.7 ml/min; Globulin 3.5 gm/dl (2.5-4.0); Glucose 251 mg/dl (70-99(Fasting)); Magnesium 2.4 mg/dl (1.7-2.4); Phosphorus 3.1 mg/dl (2.5-4.9); Potassium 2.9 mmol/L (3.5-5.1); Sodium 135 mmol/L (136-145); Total Protein 7.1 gm/dl (6.0-8.3)
--- NOTE | 2021-11-13 07:15 | XRay Report ---
XR chest 1V portable CLINICAL HISTORY: dizziness, falls COMPARISON STUDY: Chest radiograph November 01, 2021. Chest CT July 11, 2021. FINDINGS: Dual lead left subclavian pacemaker is in place. Moderate cardiomegaly is unchanged. There is pulmonary vascular congestion without overt pulmonary edema. Linear right lung opacities favor ate lectasis. No consolidation to suggest pneumonia. Multiple old right-sided rib fractures are present. IMPRESSION: Cardiomegaly with pulmonary vascular congestion. ACT 112: Negative or not required by law. Electronically signed by: Basil Hills M.D. 11/13/2021 7:13 AM
[2021-11-13 07:24] LABS: Thyroid Stimulating Hormone 0.211 uIu/ml (0.300-4.500)
--- NOTE | 2021-11-13 08:05 | CT Scan Report ---
CT head/brain wo con CLINICAL HISTORY: 71 years-old Male with dizziness, frequent falls, head injury. Acute head injury a nd dizziness with recent fall TECHNIQUE: Multiple axial CT images of the head were obtained without contrast. A dose lowering tech nique was utilized adhering to the principles of ALARA. CT DOSE: 614.27 mGy.cm COMPARISON: Head CT 11/01/2021 FINDINGS: No acute intracranial hemorrhage, midline shift, intracranial mass, hydrocephalus, territorial ischem ia or abnormal extra-axial collection. Mild involutional changes. Cerebral vascular calcifications. U nchanged subcentimeter hypodense focus of the right paramedian zuleika on image 11. The calvarium is int act. Prior bilateral lens repair. There is a small right forehead contusion. The paranasal sinuses, m astoid air cells, and middle ear cavities are clear. IMPRESSION: 1. No acute intracranial abnormality or calvarial fracture. 2. Small right forehead contusion. ACT 112: Negative or not required by law. The above report was generated using voice recognition software. It may contain grammatical, syntax o r spelling errors. Electronically signed by: Bartolome Menchaca M.D. 11/13/2021 8:02 AM
[2021-11-13 08:30] LABS: T4 Free Thyroxine 1.51 ng/dl (0.61-1.60)
[2021-11-13] MEDS ORDERED: POTASSIUM CHLORIDE CRTAB 20 MEQ TABCR PO STA (09:15)
[2021-11-13] MEDS: POTASSIUM CHLORIDE / WTR 10 MEQ/100 ML PLCT IV SCH ×2 (09:40→11:04)
[2021-11-13] MEDS: SODIUM CHLORIDE 0.9% 500 ML IV SCH ×2 (09:40→14:28)
[2021-11-13 09:47] LABS: Base Excess VBG 10.1 mEq/L; HCO3 VBG 37 mmol/L; Oxygen Saturation VBG < 60.0 %; PCO2 VBG 61 mmHg (38-50); PO2 VBG 30 mmHg; pH VBG 7.41 (7.36-7.41)
--- NOTE | 2021-11-13 13:19 | History & Physical Report ---
Date of Service November 13, 2021 Assessment & Plan (1) Ambulatory dysfunction: (2) Recurrent falls: Plan: Patient is 71-year-old male with PMH DM II, HTN, HLD, chronic diastolic CHF, history of tachycardia induced cardiomyopathy EF 50 to 60% on echo 10/2020, h/o PE, on chronic anticoagulation, paroxysmal atrial fibrillation, tachybradycardia syndrome s/p pacemaker, CKD III, COPD, hypothyroidism, obesity history COVID-07/2021 presented to ER with complaint of frequent falls. Denies dizziness, syncope, CP, SOB to this provider In ER vitals stable. UA pending CT Head: no acute changes Unsteady gait reported in ER Fall precautions PT/OT eval orthostatic vitals Hypokalemia: K: 2.9, Magnesium WNL In ER given 2 K riders, 40meq KCl po DM II A1c: 9.5 on 07/12/21 A1c in AM Basal bolus insulin per protocol Chronic diastolic CHF History tachycardia induced cardiomyopathy EF: 50-60% on echo 10/2020 Continue lasix, spironolactone PAF On Eliquis Continue Eliquis, metoprolol succinate, digoxin Digoxin level pending History PE On Eliquis Continue Eliquis CKD III Cr: 1.6. Baseline ~1.5 Monitor renal function, avoid nephrotoxic agents when possible Tachybrady Syndrome S/P Pacemaker SALAS Noncompliant with Bipap Hypothyroidism Continue levothyroxine DVT Prophylaxis On Eliquis Full Code as per discussion with pt Is to start following with [facility] Provider soon for routine care Pt was seen and care coordinated with Dr Sunshine. See addendum History of Present Illness Chief Complaint: Frequent falls Primary Care Provider: [place], [facility] Patient is 71-year-old male with PMH DM II, HTN, HLD, chronic diastolic CHF, history of tachycardia induced cardiomyopathy EF 50 to 60% on echo 10/2020, h/o PE, on chronic anticoagulation, paroxysmal atrial fibrillation, tachybradycardia syndrome s/p pacemaker, CKD III, COPD, hypothyroidism, obesity history COVID-07/2021 presented to ER with complaint of frequent falls. Patient reports has been falling more frequently. He thinks has fallen a couple of times a week. Denies syncope. Patient denies any dizziness, CP, SOB prior to fall. He reports using a walker but still falling. He thinks his knees are giving out causing him to fall. Patient reports he is to start physical therapy at [facility] soon. Denies fever/chills, diaphoresis, N/V/D/C, SIMPSON, dizziness, syncope, vision changes, neck pain, CP, SOB, orthopnea, palpitations, cough, sore throat, choking, otalgia, rhinorrhea, abdominal pain, paresthesias, weakness, extremity weakness, extremity edema, rashes, urinary symptoms. Allergies Allergy/AdvReac Type Severity Reaction Status Date / Time No Known Allergies Allergy Verified 11/01/21 09:13 Home Medications Medication Instructions Recorded Confirmed Type digoxin 125 mcg (0.125 mg) tablet 0.125 mg PO DAILY@1800 #0 07/13/16 11/13/21 History aspirin 81 mg tablet,delayed 81 mg PO QAM 05/11/18 11/13/21 History release (Adult Low Dose Aspirin) duloxetine 60 mg capsule,delayed 60 mg PO QAM 08/31/18 11/13/21 History release allopurinol 300 mg tablet 300 mg PO QAM 05/25/19 11/13/21 History omeprazole 20 mg capsule,delayed 20 mg PO QAM 05/25/19 11/13/21 History release potassium chloride 20 mEq 20 meq PO BID 07/12/19 11/13/21 History tablet,extended release(part/cryst) (Klor-Con M) albuterol sulfate 90 mcg/actuation 2 puffs INH QID PRN gm 12/14/19 11/13/21 History aerosol inhaler atorvastatin 20 mg tablet 10 mg PO HS 12/14/19 11/13/21 History meclizine 12.5 mg tablet 12.5 mg PO TID PRN 12/14/19 11/13/21 History bupropion HCl 150 mg 24 hr tablet, 150 mg PO QAM 02/13/20 11/13/21 History extended release oxybutynin chloride 10 mg 10 mg PO DAILY 03/29/20 11/13/21 History tablet,extended release 24 hr (Ditropan XL) multivitamin with minerals 1 tab PO DAILY 06/19/20 11/13/21 History (Multiple Vitamin-Minerals) nitroglycerin 0.4 mg sublingual 0.4 mg SUBLINGUAL UD PRN 06/19/20 11/13/21 History tablet furosemide 80 mg tablet 80 mg PO BID 11/01/20 11/13/21 History metolazone 2.5 mg tablet 2.5 mg PO DAILY PRN 11/01/20 11/13/21 History spironolactone 25 mg tablet 25 mg PO DAILY 11/01/20 11/13/21 History (Aldactone) nystatin 100,000 unit/gram topical 1 applic TOPICAL BID 03/04/21 11/13/21 History powder apixaban 5 mg tablet 5 mg PO BID 07/11/21 11/13/21 History gabapentin 300 mg capsule 300 mg PO TID 07/27/21 11/13/21 History blood sugar diagnostic (Contour #50 ea 07/31/21 11/13/21 Rx Next Test Strips) blood-glucose meter (Contour Next #1 ea 07/31/21 11/13/21 Rx Glucose Meter) lancets (Microlet Lancet) #100 ea 07/31/21 11/13/21 Rx acetaminophen 325 mg tablet 650 mg PO Q4H PRN 08/10/21 11/13/21 History insulin glargine 100 unit/mL (3 25 unit SC HS 08/10/21 11/13/21 History mL) subcutaneous pen (Lantus Solostar U-100 Insulin) insulin glargine 100 unit/mL (3 80 unit SC DAILY 08/10/21 11/13/21 History mL) subcutaneous pen (Lantus Solostar U-100 Insulin) insulin regular human 100 unit/mL 10 unit SUBCUT TIDM 08/10/21 11/13/21 History (3 mL) subcutaneous pen (Novolin R Flexpen) artificial tears with lanolin eye 1 applic OPB HS 11/01/21 11/13/21 History ointment cholecalciferol (vitamin D3) 25 50 mcg PO DAILY 11/01/21 11/13/21 History mcg (1,000 unit) tablet (Vitamin D3) levothyroxine 125 mcg tablet 250 mcg PO DAILY@0600 11/01/21 11/13/21 History polymyxin B sulfate 10,000 1 drp OPL TID 11/01/21 11/13/21 History unit-trimethoprim 1 mg/mL eye drops polyvinyl alcohol-povidone (PF) 1 drp OPB QID 11/01/21 11/13/21 History 1.4 %-0.6 % eye drops in a dropperette (Refresh Classic (PF)) magnesium oxide 400 mg PO DAILY 11/13/21 11/13/21 History metoprolol succinate 100 mg 150 mg PO BID 11/13/21 11/13/21 History tablet,extended release 24 hr prednisolone acetate 1 % eye 1 drp OPHTHALMIC (EYE) QID 11/13/21 11/13/21 History drops,suspension sennosides 8.6 mg capsule 8.6 mg PO BID 11/13/21 11/13/21 History Past Med/Surg History Medical History Abnormal chest x-ray 06/18/20 right hilar opacity, f/u recommended Anticoagulant long-term use Arthritis Atrial fibrillation paroxysmal Atrial flutter Bifascicular block CAD (coronary artery disease) Cardiac pacemaker in situ Cardiomyopathy Chronic anticoagulation Chronic diastolic CHF (congestive heart failure) Chronic venous insufficiency CKD (chronic kidney disease) stage 3, GFR 30-59 ml/min Claustrophobia Closed fracture of thyroid cartilage COPD, moderate Depression Diabetes mellitus, type 2 insulin pump Fatty liver Gout Hyperlipidemia Hypertension Hypothyroidism Iatrogenic pulmonary embolism Interstitial lung disease Morbid obesity MRSA infection Nephrolithiasis Nocturnal hypoxemia SALAS (obstructive sleep apnea) Osteoarthritis Paroxysmal atrial fibrillation Prolonged QT interval Pulmonary embolism B/L- 5+ years ago Sarcoidosis possible- evaluated by pulmonary; felt no active sarcoidosis and would not merit steroid therapy given weight/diabetic state. 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 "prior EF of 25% while in aflutter, subsequently normal in NSR" Surgical History H/O cardiac radiofrequency ablation H/O prior ablation treatment History of arthroscopic knee surgery History of bronchoscopy History of cataract surgery local anesthesia only per pt History of cholecystectomy History of extraction of renal calculus History of lung surgery thoracoscopy, right VATS, wedge resection History of umbilical hernia repair Hx of carpal tunnel repair Pacemaker Implanted 02/2017 secondary to Sinus node dysfunction/tachy sherry syndrome/3rd degree AVB [employer] Pacer check 12/24/17 Status post incision and drainage Family History Mother Cancer Social History Smoking Status: Never smoker Second Hand Exposure: No; Hx Alcohol Use: No Hx Substance Use: No Preferred Language: Burmese Communication Ability: Effective Visual Impairment: Limited Hearing Ability: Normal Tax Services Professional Required: No Beliefs That Will Affect Care: None marital status: Current Living Situation: Prison Current Living Situation Comment: [facility] current occupational status: retired How many Children do You have: 2 How many Children do You have Comment: children are not involved with care much per pt Feels Safe at Home: Yes Safety Concerns: Feels Safe At This Time Diet Comment: FLUID RESTRICTION during the past year weight has: other Assistive Devices: Walker Review of Systems Review of Systems: All systems reviewed & are unremarkable except as noted in HPI & below Physical Exam Physical Exam: General: no acute distress, +obese Head: normocephalic, atraumatic Eyes: PERRL, EOM's intact, conjunctiva non-injected, anicteric ENT: normal inspection external ears, nose, mucous membranes moist Neck: supple, trachea midline Lungs: clear, no respiratory distress, no wheezing/rhonchi/rales, 95% on RA CV: irregularly irregular, no pretibial edema Abd: protuberant, normal BS, soft, non-tender Ext: no cyanosis, no calf tenderness, chronic venous stasis skin changes Neuro: A&O x 3, no focal deficits noted, normal affect Skin: warm, dry Results & Data Results & Data ([facility]) Vital Signs (Past 12 Hours) Vital Signs Temp Pulse Pulse Resp BP BP Pulse Ox 11/13/21 12:00 61 20 132/76 95 11/13/21 10:00 62 20 124/74 100 11/13/21 08:19 65 21 124/74 95 11/13/21 06:37 63 26 H 95 11/13/21 05:58 36.8 C 65 19 114/68 98 Laboratory Results Short CBC 11/13/21 Range/Units 06:31 WBC 8.43 (4.8-10.8) K/uL Hgb 13.2 L (14.0-18.0) g/dL Hct 41.1 L (42-52) % Plt Count 195 (130-400) K/uL BMP 11/13/21 06:31 Sodium 135 L Potassium 2.9 L Chloride 90 L Carbon Dioxide 36 H BUN 44 H Creatinine 1.62 H Glucose 251 H Calcium 9.6 Liver Function 11/13/21 Range/Units 06:31 Total Bilirubin 1.0 (0.2-1.0) mg/dl AST 17 (13-39) U/L ALT 12 (7-52) U/L Alkaline Phosphatase 110 H (34-104) U/L Albumin 3.6 (3.4-5.0) gm/dl Diagnostic Findings Chest X-Ray 11/13/21 06:35 XR chest 1V portable CLINICAL HISTORY: dizziness, falls COMPARISON STUDY: Chest radiograph November 01, 2021. Chest CT July 11, 2021. FINDINGS: Dual lead left subclavian pacemaker is in place. Moderate cardiomegaly is unchanged. There is pulmonary vascular congestion without overt pulmonary edema. Linear right lung opacities favor atelectasis. No consolidation to suggest pneumonia. Multiple old right-sided rib fractures are present. IMPRESSION: Cardiomegaly with pulmonary vascular congestion. ACT 112: Negative or not required by law. Electronically signed by: Basil Hills M.D. 11/13/2021 7:[address] 11/13/21 06:35 CT head/brain wo con CLINICAL HISTORY: 71 years-old Male with dizziness, frequent falls, head injury. Acute head injury and dizziness with recent fall TECHNIQUE: Multiple axial CT images of the head were obtained without contrast. A dose lowering technique was utilized adhering to the principles of ALARA. CT DOSE: 614.27 mGy.cm COMPARISON: Head CT 11/01/2021 FINDINGS: No acute intracranial hemorrhage, midline shift, intracranial mass, hydrocephalus, territorial ischemia or abnormal extra-axial collection. Mild involutional changes. Cerebral vascular calcifications. Unchanged subcentimeter hypodense focus of the right paramedian zuleika on image 11. The calvarium is intact. Prior bilateral lens repair. There is a small right forehead contusion. The paranasal sinuses, mastoid air cells, and middle ear cavities are clear. IMPRESSION: 1. No acute intracranial abnormality or calvarial fracture. 2. Small right forehead contusion. ACT 112: Negative or not required by law. The above report was generated using voice recognition software. It may contain grammatical, syntax or spelling errors. Electronically signed by: aBrtolome Menchaca M.D. 11/13/2021 8:02 AM Supervising Physician Co-Signing Physician Notes 71 yo M w/ PMH of poorly controlled T2DM, HTN, HLD, chronic diastolic CHF, tachy induced CM (10/2020 ECHO w/ EF 50-60%), PAF on eliquis, tacybrady syndrome s/p pacer, CKD III, hypothyroidism presented to ED 11/13 with complaint of frequent falls. Vitals stable, lab reviewed, Potassium replaced, repeat BMP at 10 PM, replete electrolytes as appropriate. PT/OT for EVal, CM to assist dc plan. Sliding scale insulin for his T2DM. Continue home meds as and when appropriate. Will need TSH as OP in 6 weeks as f/u. Monitor subconjuctival hge clinically. Pt w/ no eye pain. Upon Exam GENERAL: Alert and oriented x3. NAD, on RA. Obese HEENT: No pallor, no icterus. Pupils equal, round and reactive to light. Oral mucosa moist. Rt forehead bruise. R > L Eye subconjuctival hge noted. NECK: No JVD, no neck masses. HEART: S1 and S2 heard. Regular rate and rhythm. No murmur, no gallop. RESPIRATORY SYSTEM: Normal AP diameter. No accessory muscle use. No wheezing, no crackles. ABDOMEN: Soft, bowel sounds present, nontender, no distention. CENTRAL NERVOUS SYSTEM: No facial droop. Speech is clear. Obeys simple commands. Moves extremities. EXTREMITIES: BLE chronic skin changes, no BLE edema, no erythema seen. I have seen and examined the patient and have discussed the case with the provider above. I agree with the assessment and plan as stated.
--- NOTE | 2021-11-13 15:06 | Emergency Department Note ---
Impression & Plan Near syncope, Generalized weakness, Hypokalemia, Hypercapnia, Dehydration, Recurrent falls, CKD (chronic kidney disease) ED Provider Note NAME: CECILE KENDALL AGE: 71 SEX: M ARRIVES VIA: Ambulance INFORMANT: Patient EMS. ED PROVIDER(S): Jonathon Sands MD CHIEF COMPLAINT: Near syncope, dizziness, weakness PLAN: Disposition: Admit MEDICAL DECISION MAKING: The patient is a pleasant 71-year-old gentleman with a complicated past medical history including tachycardia-induced cardiomyopathy resolved (Echo 10/2020, EF 50-60%), dCHF, DVT, AFib on Elqiuis, tachy-sherry syndrome s/p ppm, COPD, SALAS on CPAP, hypertension, hyperlipidemia who presents to the emergency department from home after having near syncopal episode where he woke this morning and felt lightheaded. He reports that this has been happening frequently. He reports that this time he was with his home nurses who were able to catch him but he continued to feel lightheaded. He was last seen emergency department a week ago for similar symptoms with unremarkable work-up. He did have CT scan of his head at that time that was negative. He denies falling or hitting his head at this time. He denies any fevers, chills, cough congestion, GI or symptoms. He reports he is currently being treated for an eye infection and is scheduled to see ophthalmology next week. He is currently getting antibiotic drops. The patient is fatigued appearing, chronically ill but no acute distress, afebrile with stable vital signs. He appears euvolemic to dry. He has no focal neurologic deficits. EKG without overt acute ischemia. Interrogation of the patient's PPM was reviewed with Chai Labstronic repair technician and no concerning arrhythmias have occurred recently. Chest x-ray negative for acute cardiopulmonary process. WBC and platelets within normal limits. H/H similar to prior range of values. Chemistry without metabolic acidosis however does appear to have elevated bicarbonate to 36 suggestive of component of chronic hypercapnia which correlates to the patient's VBG with a PCO2 of 61 in the setting of COPD/SALAS. Patient's pH is normal at 7.41. Creatinine 1.62 proximate to prior values in the setting of the patient's CKD. Potassium 2.9 with repletion provided. Electrolytes without significant abnormalities otherwise. LFTs were unremarkable. High-sensitivity troponin was 14, within normal limits. Patient was low at 0.21 however free T4 within normal limits. Covid-19 RNA, NAAT negative. CT of the head was negative for acute process. Patient was given IV fluid hydration and electrolyte repletion and while he did report feeling improved upon ambulatory trial the patient was notably unsteady and lightheaded and was unable to function independently which had been his prior baseline. Patient was referred for admission however initially he was refusing admission because he wanted to return to his personal assisted. However I did review the patient's symptoms with his personal assisted staff including RN horticulture supervisor and they did explain that the patient has been declining over the past couple weeks and more so over the past several days with recurrent falls. They do feel that he is not at his recent baseline and feel that if he were to return he likely may additionally decline and again need to return to the emergency department/hospital. I did review these concerns with the patient and he ultimately agreed to be admitted. Case was discussed with Pranay Cunha, with Dr. Jong herrera who will evaluate the patient for admission. Triage Nursing notes reviewed and agree them. Prior medical records reviewed Vital Signs: reviewed and remarkable for no significant abnormalities Differential diagnosis: Vasovagal event, dehydration, infection, hypoglycemia, electrolyte abnormalities, cardiac sources, intracerebral event, pulmonary embolism, seizure, toxicologic, neurologic, as well as other pathologies. ER treatment provided: See below. Diagnostics interpreted by me: ECG: Sinus rhythm with intermittent paced complexes, right bundle branch block, left anterior fascicular block, no overt ST elevation or depression, QTC 476, QRS 168. Cardiac Monitoring: An order for continuous cardiac monitoring was placed and demonstrated sinus rhythm with intermittent paced rhythm. 60 bpm, Laboratory studies: See below Imaging studies: See below Consultation(s): [facility], with Jong herrera who will evaluate the patient for admission. HPI: The patient is a pleasant 71-year-old gentleman with a complicated past medical history including tachycardia-induced cardiomyopathy resolved (Echo 10/2020, EF 50-60%), dCHF, DVT, AFib on Elqiuis, tachy-sherry syndrome s/p ppm, COPD, SALAS on CPAP, hypertension, hyperlipidemia who presents to the emergency department from home after having near syncopal episode where he woke this morning and felt lightheaded. He reports that this has been happening frequently. He reports that this time he was with his home nurses who were able to catch him but he continued to feel lightheaded. He was last seen emergency department a week ago for similar symptoms with unremarkable work-up. He did have CT scan of his head at that time that was negative. He denies falling or hitting his head at this time. He denies any fevers, chills, cough congestion, GI or symptoms. He reports he is currently being treated for an eye infection and is scheduled to see ophthalmology next week. He is currently getting antibiotic drops. ROS: See above HPI for pertinent positives & negatives. A total of 10 systems reviewed and were otherwise negative. VITALS:See Below PHYSICAL EXAMINATION: GENERAL: Awake, alert, fatigued/chronically ill-appearing, in no distress, HENT: Normocephalic. Subacute contusion of right forehead.. Oropharynx with dry mucous membranes and otherwise unremarkable. EYES: Normal conjunctiva. Sclera with mild injection bilaterally. NECK: Supple. No nuchal rigidity. FROM. No JVD. RESPIRATORY: Clear to auscultation. CARDIAC: Regular rate, normal rhythm. Extremities warm and well perfused. Pulses equal. ABDOMEN: Soft, non-distended. No tenderness to palpation. No rebound or guarding. No masses. RECTAL: Deferred. MUSCULOSKELETAL: Chest examination reveals no tenderness. The back is symmetrical on inspection without obvious abnormality. There is no CVA tenderness to palpation. No joint edema. LOWER EXTREMITIES: Calves are equal size bilaterally and non-tender. Scant BLE edema. No discoloration. NEURO: Normal sensorium. No sensory or motor deficits noted. SKIN: No rash or jaundice noted. Jonathon Sands MD Past Med/Surg History Medical History Abnormal chest x-ray 06/18/20 right hilar opacity, f/u recommended Anticoagulant long-term use Arthritis Atrial fibrillation paroxysmal Atrial flutter Bifascicular block CAD (coronary artery disease) Cardiac pacemaker in situ Cardiomyopathy Chronic anticoagulation Chronic diastolic CHF (congestive heart failure) Chronic venous insufficiency CKD (chronic kidney disease) stage 3, GFR 30-59 ml/min Claustrophobia Closed fracture of thyroid cartilage COPD, moderate Depression Diabetes mellitus, type 2 insulin pump Fatty liver Gout Hyperlipidemia Hypertension Hypothyroidism Iatrogenic pulmonary embolism Interstitial lung disease Morbid obesity MRSA infection Nephrolithiasis Nocturnal hypoxemia SALAS (obstructive sleep apnea) Osteoarthritis Paroxysmal atrial fibrillation Prolonged QT interval Pulmonary embolism B/L- 5+ years ago Sarcoidosis possible- evaluated by pulmonary; felt no active sarcoidosis and would not merit steroid therapy given weight/diabetic state. 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 "prior EF of 25% while in aflutter, subsequently normal in NSR" Surgical History H/O cardiac radiofrequency ablation H/O prior ablation treatment History of arthroscopic knee surgery History of bronchoscopy History of cataract surgery local anesthesia only per pt History of cholecystectomy History of extraction of renal calculus History of lung surgery thoracoscopy, right VATS, wedge resection History of umbilical hernia repair Hx of carpal tunnel repair Pacemaker Implanted 02/2017 secondary to Sinus node dysfunction/tachy sherry syndrome/3rd degree AVB [employer] Pacer check 12/24/17 Status post incision and drainage Family History Mother Cancer Social History Smoking Status: Never smoker Second Hand Exposure: No; Hx Alcohol Use: No Hx Substance Use: No Preferred Language: Belgian Communication Ability: Effective Visual Impairment: Limited Hearing Ability: Normal Tariff Clerk Required: No Beliefs That Will Affect Care: None marital status: Current Living Situation: [facility] Current Living Situation Comment: [facility] current occupational status: retired How many Children do You have: 2 How many Children do You have Comment: children are not involved with care much per pt Feels Safe at Home: Yes Safety Concerns: Feels Safe At This Time Diet Comment: FLUID RESTRICTION during the past year weight has: other Assistive Devices: Walker Allergies Allergies Allergy/AdvReac Type Severity Reaction Status Date / Time No Known Allergies Allergy Verified 11/01/21 09:13 Home Meds Home Medications Medication Instructions Recorded Confirmed digoxin 125 mcg (0.125 mg) tablet 0.125 mg PO DAILY@1800 #0 07/13/16 11/13/21 aspirin 81 mg tablet,delayed 81 mg PO QAM 05/11/18 11/13/21 release (Adult Low Dose Aspirin) duloxetine 60 mg capsule,delayed 60 mg PO QAM 08/31/18 11/13/21 release allopurinol 300 mg tablet 300 mg PO QAM 05/25/19 11/13/21 omeprazole 20 mg capsule,delayed 20 mg PO QAM 05/25/19 11/13/21 release potassium chloride 20 mEq 20 meq PO BID 07/12/19 11/13/21 tablet,extended release(part/cryst) (Klor-Con M) albuterol sulfate 90 mcg/actuation 2 puffs INH QID PRN gm 12/14/19 11/13/21 aerosol inhaler atorvastatin 20 mg tablet 10 mg PO HS 12/14/19 11/13/21 meclizine 12.5 mg tablet 12.5 mg PO TID PRN 12/14/19 11/13/21 bupropion HCl 150 mg 24 hr tablet, 150 mg PO QAM 02/13/20 11/13/21 extended release oxybutynin chloride 10 mg 10 mg PO DAILY 03/29/20 11/13/21 tablet,extended release 24 hr (Ditropan XL) multivitamin with minerals 1 tab PO DAILY 06/19/20 11/13/21 (Multiple Vitamin-Minerals) nitroglycerin 0.4 mg sublingual 0.4 mg SUBLINGUAL UD PRN 06/19/20 11/13/21 tablet furosemide 80 mg tablet 80 mg PO BID 11/01/20 11/13/21 metolazone 2.5 mg tablet 2.5 mg PO DAILY PRN 11/01/20 11/13/21 spironolactone 25 mg tablet 25 mg PO DAILY 11/01/20 11/13/21 (Aldactone) nystatin 100,000 unit/gram topical 1 applic TOPICAL BID 03/04/21 11/13/21 powder apixaban 5 mg tablet 5 mg PO BID 07/11/21 11/13/21 gabapentin 300 mg capsule 300 mg PO TID 07/27/21 11/13/21 acetaminophen 325 mg tablet 650 mg PO Q4H PRN 08/10/21 11/13/21 insulin glargine 100 unit/mL (3 25 unit SC HS 08/10/21 11/13/21 mL) subcutaneous pen (Lantus Solostar U-100 Insulin) insulin glargine 100 unit/mL (3 80 unit SC DAILY 08/10/21 11/13/21 mL) subcutaneous pen (Lantus Solostar U-100 Insulin) insulin regular human 100 unit/mL 10 unit SUBCUT TIDM 08/10/21 11/13/21 (3 mL) subcutaneous pen (Novolin R Flexpen) artificial tears with lanolin eye 1 applic OPB HS 11/01/21 11/13/21 ointment cholecalciferol (vitamin D3) 25 50 mcg PO DAILY 11/01/21 11/13/21 mcg (1,000 unit) tablet (Vitamin D3) levothyroxine 125 mcg tablet 250 mcg PO DAILY@0600 11/01/21 11/13/21 polymyxin B sulfate 10,000 1 drp OPL TID 11/01/21 11/13/21 unit-trimethoprim 1 mg/mL eye drops polyvinyl alcohol-povidone (PF) 1 drp OPB QID 11/01/21 11/13/21 1.4 %-0.6 % eye drops in a dropperette (Refresh Classic (PF)) magnesium oxide 400 mg PO DAILY 11/13/21 11/13/21 metoprolol succinate 100 mg 150 mg PO BID 11/13/21 11/13/21 tablet,extended release 24 hr prednisolone acetate 1 % eye 1 drp OPHTHALMIC (EYE) QID 11/13/21 11/13/21 drops,suspension sennosides 8.6 mg capsule 8.6 mg PO BID 11/13/21 11/13/21 Previous Rx's Medication Instructions Recorded blood sugar diagnostic (Contour #50 ea 07/31/21 Next Test Strips) blood-glucose meter (Contour Next #1 ea 07/31/21 Glucose Meter) lancets (Microlet Lancet) #100 ea 07/31/21 Results & Data (ED) Vital Signs Vital Signs - 24 hr 11/13/21 05:58 11/13/21 06:19 11/13/21 06:37 Temperature 36.8 C Temperature Source Oral Pulse Rate - Lying Pulse Rate - Sitting Pulse Rate - Standing Pulse Rate 65 63 Pulse Rate [Apical] Pulse Rhythm Regular Irregular Pulse Strength Normal Respiratory Rate 19 26 H Respiratory Effort / Characteristics Non-Labored Non-Labored Respiratory Depth Normal Normal Respiratory Pattern Blood Pressure - Lying Blood Pressure - Sitting Blood Pressure- Standing Blood Pressure 114/68 Blood Pressure [Right Arm] Blood Pressure Mean 83 Blood Pressure Mean [Right Arm] Blood Pressure Position Sitting Blood Pressure Position [Right Arm] Pulse Oximetry 98 95 Oxygen Delivery Method Nasal Cannula Nasal Cannula Oxygen Flow Rate 3 3 Sepsis Recent Fever Within 48 Hours No Sepsis New/Unexplained Change in Mental Status No Sepsis Action Taken by Nursing No Action Required 11/13/21 07:25 11/13/21 08:06 11/13/21 08:19 Temperature Temperature Source Pulse Rate - Lying 65 65 Pulse Rate - Sitting 64 68 Pulse Rate - Standing 71 Pulse Rate Pulse Rate [Apical] 65 Pulse Rhythm Pulse Strength Respiratory Rate 21 Respiratory Effort / Characteristics Non-Labored Spontaneous Respiratory Depth Normal Respiratory Pattern Regular Blood Pressure - Lying 101/65 124/71 Blood Pressure - Sitting 113/56 L 114/63 Blood Pressure- Standing 84/61 L Blood Pressure Blood Pressure [Right Arm] 124/74 Blood Pressure Mean Blood Pressure Mean [Right Arm] 90 Blood Pressure Position Blood Pressure Position [Right Arm] Sitting Pulse Oximetry 95 Oxygen Delivery Method Nasal Cannula Oxygen Flow Rate 3 Sepsis Recent Fever Within 48 Hours Sepsis New/Unexplained Change in Mental Status Sepsis Action Taken by Nursing 11/13/21 10:00 11/13/21 12:00 Temperature Temperature Source Pulse Rate - Lying Pulse Rate - Sitting Pulse Rate - Standing Pulse Rate Pulse Rate [Apical] 62 61 Pulse Rhythm Pulse Strength Respiratory Rate 20 20 Respiratory Effort / Characteristics Non-Labored Spontaneous Non-Labored Spontaneous Respiratory Depth Normal Normal Respiratory Pattern Regular Blood Pressure - Lying Blood Pressure - Sitting Blood Pressure- Standing Blood Pressure Blood Pressure [Right Arm] 124/74 132/76 Blood Pressure Mean Blood Pressure Mean [Right Arm] 90 94 Blood Pressure Position Blood Pressure Position [Right Arm] Sitting Sitting Pulse Oximetry 100 95 Oxygen Delivery Method Nasal Cannula Room Air Oxygen Flow Rate 3 Sepsis Recent Fever Within 48 Hours Sepsis New/Unexplained Change in Mental Status Sepsis Action Taken by Nursing Laboratory Data Attestation: I reviewed the patient's lab results. Result diagrams: 11/13/21 06:31 11/13/21 06:31 Lab Results 11/13/21 11/13/21 11/13/21 Range/Units 06:31 06:31 06:31 WBC 8.43 (4.8-10.8) K/uL RBC 4.59 L (4.7-6.1) M/uL Hgb 13.2 L (14.0-18.0) g/dL Hct 41.1 L (42-52) % MCV 89.5 (80-100) fL MCH 28.8 (25-34) pg MCHC 32.1 (32-36) g/dL RDW Std Deviation 45.8 (36.4-46.3) fL RDW Coeff of Baldo 13.9 (11.5-14.5) % Plt Count 195 (130-400) K/uL MPV 11.2 H (7.4-10.4) fL Immature Gran % (Auto) 0.2 % Neut % (Auto) 70.6 % Lymph % (Auto) 18.3 % Seward % (Auto) 8.9 % Eos % (Auto) 1.8 % Baso % (Auto) 0.2 % Neut # (Auto) 5.95 (1.4-6.5) K/uL Lymph # (Auto) 1.54 (1.2-3.4) K/uL Seward # (Auto) 0.75 H (0.11-0.59) K/uL Eos # (Auto) 0.15 (0-0.5) K/uL Baso # (Auto) 0.02 (0-0.2) K/uL Immature Gran # (Auto) 0.02 (0.00-0.02) K/uL PT 11.4 (9.0-12.0) Seconds INR 1.1 (0.9-1.1) APTT 32.0 H (21.0-31.0) Seconds PTT Ratio 1.2 VBG pH (7.36-7.41) VBG pCO2 (38-50) mmHg VBG pO2 mmHg VBG HCO3 mmol/L VBG O2 Saturation % VBG Base Excess mEq/L Barometric Pressure mm/Hg Sodium (136-145) mmol/L Potassium (3.5-5.1) mmol/L Chloride (98-107) mmol/L Carbon Dioxide (21-32) mmol/L Anion Gap (3-11) BUN (6-23) mg/dl Creatinine (0.6-1.4) mg/dl Est Cr Clr Drug Dosing Est GFR ( Amer) ml/min Est GFR (Non-Af Amer) ml/min BUN/Creatinine Ratio (10-20) Glucose (70-99(Fasting)) mg/dl Calcium (8.5-10.1) mg/dl Phosphorus (2.5-4.9) mg/dl Magnesium (1.7-2.4) mg/dl Total Bilirubin (0.2-1.0) mg/dl AST (13-39) U/L ALT (7-52) U/L Alkaline Phosphatase (34-104) U/L Troponin I High Sens Cancelled Total Protein (6.0-8.3) gm/dl Albumin (3.4-5.0) gm/dl Globulin (2.5-4.0) gm/dl Albumin/Globulin Ratio (0.9-2) TSH (0.300-4.500) uIu/ml Free T4 (0.61-1.60) ng/dl SARS-CoV-2, RNA, NAAT (NEGATIVE) 11/13/21 11/13/21 11/13/21 Range/Units 06:31 06:31 07:24 WBC (4.8-10.8) K/uL RBC (4.7-6.1) M/uL Hgb (14.0-18.0) g/dL Hct (42-52) % MCV (80-100) fL MCH (25-34) pg MCHC (32-36) g/dL RDW Std Deviation (36.4-46.3) fL RDW Coeff of Baldo (11.5-14.5) % Plt Count (130-400) K/uL MPV (7.4-10.4) fL Immature Gran % (Auto) % Neut % (Auto) % Lymph % (Auto) % Seward % (Auto) % Eos % (Auto) % Baso % (Auto) % Neut # (Auto) (1.4-6.5) K/uL Lymph # (Auto) (1.2-3.4) K/uL Seward # (Auto) (0.11-0.59) K/uL Eos # (Auto) (0-0.5) K/uL Baso # (Auto) (0-0.2) K/uL Immature Gran # (Auto) (0.00-0.02) K/uL PT (9.0-12.0) Seconds INR (0.9-1.1) APTT (21.0-31.0) Seconds PTT Ratio VBG pH (7.36-7.41) VBG pCO2 (38-50) mmHg VBG pO2 mmHg VBG HCO3 mmol/L VBG O2 Saturation % VBG Base Excess mEq/L Barometric Pressure mm/Hg Sodium 135 L (136-145) mmol/L Potassium 2.9 L (3.5-5.1) mmol/L Chloride 90 L (98-107) mmol/L Carbon Dioxide 36 H (21-32) mmol/L Anion Gap 9 (3-11) BUN 44 H (6-23) mg/dl Creatinine 1.62 H (0.6-1.4) mg/dl Est Cr Clr Drug Dosing Not Reportable Est GFR ( Amer) 49.5 ml/min Est GFR (Non-Af Amer) 42.7 ml/min BUN/Creatinine Ratio 27.2 H (10-20) Glucose 251 H (70-99(Fasting)) mg/dl Calcium 9.6 (8.5-10.1) mg/dl Phosphorus 3.1 (2.5-4.9) mg/dl Magnesium 2.4 (1.7-2.4) mg/dl Total Bilirubin 1.0 (0.2-1.0) mg/dl AST 17 (13-39) U/L ALT 12 (7-52) U/L Alkaline Phosphatase 110 H (34-104) U/L Troponin I High Sens 14.0 Total Protein 7.1 (6.0-8.3) gm/dl Albumin 3.6 (3.4-5.0) gm/dl Globulin 3.5 (2.5-4.0) gm/dl Albumin/Globulin Ratio 1.0 (0.9-2) TSH 0.211 L (0.300-4.500) uIu/ml Free T4 1.51 (0.61-1.60) ng/dl SARS-CoV-2, RNA, NAAT NEGATIVE (NEGATIVE) 11/13/21 Range/Units 09:27 WBC (4.8-10.8) K/uL RBC (4.7-6.1) M/uL Hgb (14.0-18.0) g/dL Hct (42-52) % MCV (80-100) fL MCH (25-34) pg MCHC (32-36) g/dL RDW Std Deviation (36.4-46.3) fL RDW Coeff of Baldo (11.5-14.5) % Plt Count (130-400) K/uL MPV (7.4-10.4) fL Immature Gran % (Auto) % Neut % (Auto) % Lymph % (Auto) % Seward % (Auto) % Eos % (Auto) % Baso % (Auto) % Neut # (Auto) (1.4-6.5) K/uL Lymph # (Auto) (1.2-3.4) K/uL Seward # (Auto) (0.11-0.59) K/uL Eos # (Auto) (0-0.5) K/uL Baso # (Auto) (0-0.2) K/uL Immature Gran # (Auto) (0.00-0.02) K/uL PT (9.0-12.0) Seconds INR (0.9-1.1) APTT (21.0-31.0) Seconds PTT Ratio VBG pH 7.41 (7.36-7.41) VBG pCO2 61 H (38-50) mmHg VBG pO2 30 mmHg VBG HCO3 37 mmol/L VBG O2 Saturation < 60.0 % VBG Base Excess 10.1 mEq/L Barometric Pressure 729.6 mm/Hg Sodium (136-145) mmol/L Potassium (3.5-5.1) mmol/L Chloride (98-107) mmol/L Carbon Dioxide (21-32) mmol/L Anion Gap (3-11) BUN (6-23) mg/dl Creatinine (0.6-1.4) mg/dl Est Cr Clr Drug Dosing Est GFR ( Amer) ml/min Est GFR (Non-Af Amer) ml/min BUN/Creatinine Ratio (10-20) Glucose (70-99(Fasting)) mg/dl Calcium (8.5-10.1) mg/dl Phosphorus (2.5-4.9) mg/dl Magnesium (1.7-2.4) mg/dl Total Bilirubin (0.2-1.0) mg/dl AST (13-39) U/L ALT (7-52) U/L Alkaline Phosphatase (34-104) U/L Troponin I High Sens Total Protein (6.0-8.3) gm/dl Albumin (3.4-5.0) gm/dl Globulin (2.5-4.0) gm/dl Albumin/Globulin Ratio (0.9-2) TSH (0.300-4.500) uIu/ml Free T4 (0.61-1.60) ng/dl SARS-CoV-2, RNA, NAAT (NEGATIVE) Administered Medications Artificial Tears (Artificial Tears) 1 drops OP QID OFE Stop: 12/13/21 16:59 Last Admin: 11/13/21 16:43 Dose: 1 drops Documented by: [id number] Digoxin (Digoxin 0.125 Mg Tab) 0.125 mg PO Q24H OFE Stop: 12/13/21 15:59 Last Admin: 11/13/21 16:33 Dose: 0.125 mg Documented by: [id number] Furosemide (Furosemide 80 Mg Tab) 80 mg PO [id number] OFE Stop: 12/13/21 16:59 Last Admin: 11/13/21 16:35 Dose: 80 mg Documented by: [id number] Insulin Aspart (Insulin Aspart Per Unit) 0 units SC ACHS [facility] Stop: 12/13/21 16:29 Last Admin: 11/13/21 17:21 Dose: 15 units Documented by: [id number] Cosigned by: [id number] Prednisolone Acetate (Prednisolone Acetate 1% Op Susp 5 Ml Btl) 1 drops OPR QID OFE Stop: 12/13/21 16:59 Last Admin: 11/13/21 16:34 Dose: 1 drops Documented by: [id number] Discontinued Medications Sodium Chloride (Nss) 250 mls @ 999 mls/hr IV .Q16M ONE Stop: 11/13/21 07:06 Last Infusion: 11/13/21 07:38 Dose: 0 mls/hr Documented by: [id number] Admin: 11/13/21 07:21 Dose: 999 mls/hr Documented by: [id number] Potassium Chloride (K Frank / Wtr) 10 meq in 100 mls @ 100 mls/hr IV Q1H [facility]; Protocol Stop: 11/13/21 11:14 Last Infusion: 11/13/21 12:07 Dose: 0 mls/hr Documented by: [id number] Admin: 11/13/21 11:04 Dose: 100 mls/hr Documented by: [id number] Infusion: 11/13/21 10:57 Dose: 0 mls/hr Documented by: [id number] Admin: 11/13/21 09:40 Dose: 100 mls/hr Documented by: [id number] Sodium Chloride (Nss) 500 mls @ 125 mls/hr IV .Q4H OFE Stop: 12/13/21 09:14 Last Infusion: 11/13/21 15:21 Dose: 0 mls/hr Documented by: [id number] Admin: 11/13/21 14:28 Dose: 125 mls/hr Documented by: [id number] Infusion: 11/13/21 14:08 Dose: 0 mls/hr Documented by: [id number] Admin: 11/13/21 09:40 Dose: 125 mls/hr Documented by: [id number] Insulin Glargine (Insulin Glargine Solostar 100 Units/Ml 3 Ml Pen) 80 units SC ONE ONE Stop: 11/13/21 16:46 Last Admin: 11/13/21 17:22 Dose: 80 units Documented by: [id number] Cosigned by: [id number] Potassium Chloride (Potassium Chloride Crtab 20 Meq Tabcr) 40 meq PO NOW STA Stop: 11/13/21 09:16 Last Admin: 11/13/21 09:40 Dose: 40 meq Documented by: [id number] Imaging Data Radiologist's Impression: Chest X-Ray 11/13/21 06:35 XR chest 1V portable CLINICAL HISTORY: dizziness, falls COMPARISON STUDY: Chest radiograph November 01, 2021. Chest CT July 11, 2021. FINDINGS: Dual lead left subclavian pacemaker is in place. Moderate cardiomegaly is unchanged. There is pulmonary vascular congestion without overt pulmonary edema. Linear right lung opacities favor atelectasis. No consolidation to suggest pneumonia. Multiple old right-sided rib fractures are present. IMPRESSION: Cardiomegaly with pulmonary vascular congestion. ACT 112: Negative or not required by law. Electronically signed by: Basil Hills M.D. 11/13/2021 7:[address] 11/13/21 06:35 CT head/brain wo con CLINICAL HISTORY: 71 years-old Male with dizziness, frequent falls, head injury. Acute head injury and dizziness with recent fall TECHNIQUE: Multiple axial CT images of the head were obtained without contrast. A dose lowering technique was utilized adhering to the principles of ALARA. CT DOSE: 614.27 mGy.cm COMPARISON: Head CT 11/01/2021 FINDINGS: No acute intracranial hemorrhage, midline shift, intracranial mass, hydrocephalus, territorial ischemia or abnormal extra-axial collection. Mild involutional changes. Cerebral vascular calcifications. Unchanged subcentimeter hypodense focus of the right paramedian zuleika on image 11. The calvarium is intact. Prior bilateral lens repair. There is a small right forehead contusion. The paranasal sinuses, mastoid air cells, and middle ear cavities are clear. IMPRESSION: 1. No acute intracranial abnormality or calvarial fracture. 2. Small right forehead contusion. ACT 112: Negative or not required by law. The above report was generated using voice recognition software. It may contain grammatical, syntax or spelling errors. Electronically signed by: Bartolome Menchaca M.D. 11/13/2021 8:02 AM Discharge Plan Visit Data Chief Complaint: Fall Stated Complaint: Fall, Dizziness, Headache ED Provider: Jonathon Sands Discharge Problem: Near syncope, Generalized weakness, Hypokalemia, Hypercapnia, Dehydration, Recurrent falls, CKD (chronic kidney disease) Patient Disposition: Admitted As Inpatient Discharge Instructions Interventions: ED Discharge Assessment Last Done: 11/13/21 14:45 Discharge Problem: CKD (chronic kidney disease) Qualifiers: Chronic kidney disease stage: unspecified stage Qualified Code(s): N18.9 - Chronic kidney disease, unspecified
[2021-11-13] MEDS ORDERED: POLYETHYLENE (MIRALAX) 17 GM PACK PO PRN (15:20)
[2021-11-13] MEDS ORDERED: ONDANSETRON INJ 2 MG/ML 2 ML VIAL IV PRN (15:20)
[2021-11-13] MEDS ORDERED: PHARMACY GLYCEMIC MGMT CONSULT PRN (15:27)
[2021-11-13] MEDS ORDERED: CARBOHYDRATES FOR HYPOGLYCEMIA PO PRN (15:27)
[2021-11-13] MEDS ORDERED: GLUCAGON FOR INJ 1 MG VIAL SQ PRN (15:27)
[2021-11-13] MEDS ORDERED: GLUCOSE 40% GEL 15 GM TUBE PO PRN (15:27)
[2021-11-13] MEDS ORDERED: GLUCOSE 10 TABS/TUBE PO PRN (15:27)
[2021-11-13] MEDS ORDERED: DEXTROSE 50% 50 ML SYRINGE IV PRN (15:27)
[2021-11-13] MEDS ORDERED: INSULIN HUMAN NPH SC ONE (15:34)
[2021-11-13] MEDS ORDERED: NITROGLYCERIN SL 0.4 MG/TAB TAB SL PRN (15:44)
[2021-11-13] MEDS: DIGOXIN 0.125 MG TAB PO SCH (16:33)
[2021-11-13] MEDS: prednisoLONE acetate 1% OP SUSP 5 ML BTL OPR SCH ×2 (16:34→20:46)
[2021-11-13] MEDS: FUROSEMIDE 80 MG TAB PO SCH (16:35)
[2021-11-13] MEDS: ARTIFICIAL TEARS OP SCH ×2 (16:43→21:09)
[2021-11-13] MEDS ORDERED: INSULIN GLARGINE SOLOSTAR 100 UNITS/ML 3 ML PEN SC ONE (16:45)
[2021-11-13] MEDS: INSULIN ASPART PER UNIT SC SCH ×2 (17:21→21:02)
[2021-11-13] MEDS ORDERED: MICONAZOLE NITRATE POWDER 43 GM EXT PRN (18:01)
[2021-11-13] MEDS: POTASSIUM CHLORIDE CRTAB 20 MEQ TABCR PO SCH (20:47)
[2021-11-13] MEDS: SENNA 8.6 MG TAB PO SCH (20:47)
[2021-11-13] MEDS: METOPROLOL SUCC 50MG EXT REL TAB PO SCH (20:48)
[2021-11-13] MEDS: GABAPENTIN 300 MG CAP PO SCH (20:48)
[2021-11-13] MEDS: ATORVASTATIN 10 MG TAB PO SCH (20:48)
[2021-11-13] MEDS: APIXABAN 5 MG TABLET PO SCH (20:48)
[2021-11-13] MEDS: TRIMETHOPRIM/POLYMYXIN B OPL SCH (20:51)
[2021-11-13] MEDS: ARTIFICIAL TEARS OP OINT 3.5 GM TUBE OPB SCH (20:56)
[2021-11-13] MEDS ORDERED: INSULIN GLARGINE SOLOSTAR 100 UNITS/ML 3 ML PEN SC SCH ×2 (21:00)
[2021-11-13 21:58] LABS: Appearance Urine Clear (Clear); Bilirubin Urine Negative (Negative); Blood Urine Negative (Negative); Color Urine Yellow; Glucose Urine UA 2+ (Negative); Ketones Urine Negative (Negative); Leukocyte Esterase Urine Negative (Negative); Nitrite Urine Negative (Negative); Protein Urine Negative (Negative); Specific Gravity Urine 1.013 (1.000-1.030); Urobilinogen Urine Negative (Negative)
[2021-11-14] MEDS: ACETAMINOPHEN 325 MG TAB PO PRN ×2 (00:10→10:53)
[2021-11-14] MEDS: INSULIN ASPART PER UNIT SC SCH ×6 (00:23→21:56)
[2021-11-14] MEDS: LEVOTHYROXINE SODIUM 125 MCG TABLET PO SCH (05:06)
[2021-11-14 06:46] LABS: Hematocrit (blood only) 40.8 % (42-52); Hemoglobin 13.8 g/dL (14.0-18.0); Mean Corpuscular Hemoglobin 30.5 pg (25-34); Mean Corpuscular Hgb Conc 33.8 g/dL (32-36); Mean Corpuscular Volume 90.3 fL (80-100); Mean Platelet Volume 10.9 fL (7.4-10.4); Platelet Count 192 K/uL (130-400); Red Blood Count 4.52 M/uL (4.7-6.1); White Blood Count 9.42 K/uL (4.8-10.8)
[2021-11-14 07:03] LABS: Estimated Average Glucose 278 mg/dl; Hemoglobin A1C 11.3 % (4.5-5.6)
[2021-11-14 07:14] LABS: Anion Gap 8 (3-11); BUN Creatinine Ratio 26.4 (10-20); Blood Urea Nitrogen 43 mg/dl (6-23); Calcium 9.5 mg/dl (8.5-10.1); Carbon Dioxide 34 mmol/L (21-32); Chloride 93 mmol/L (98-107); Est GFR (African American) 49.1 ml/min; Est GFR (Non-African American) 42.4 ml/min; Glucose 145 mg/dl (70-99(Fasting)); Potassium 3.5 mmol/L (3.5-5.1); Sodium 135 mmol/L (136-145)
[2021-11-14] MEDS ORDERED: PNEUMOCOCCAL Polysaccharide Vaccine 25mcg/0.5mL vial/Syr IM ONE (08:00)
[2021-11-14] MEDS: INSULIN GLARGINE SOLOSTAR 100 UNITS/ML 3 ML PEN SC SCH (08:58)
[2021-11-14] MEDS: GABAPENTIN 300 MG CAP PO SCH ×3 (09:00→21:55)
[2021-11-14] MEDS: METOPROLOL SUCC 50MG EXT REL TAB PO SCH ×2 (09:00→21:57)
[2021-11-14] MEDS: APIXABAN 5 MG TABLET PO SCH ×2 (09:00→21:55)
[2021-11-14] MEDS: MAGNESIUM OXIDE 400 MG TAB PO SCH (09:01)
[2021-11-14] MEDS: SENNA 8.6 MG TAB PO SCH ×2 (09:01→21:59)
[2021-11-14] MEDS: POTASSIUM CHLORIDE CRTAB 20 MEQ TABCR PO SCH ×2 (09:01→21:58)
[2021-11-14] MEDS: allopurinoL 300 MG TAB PO SCH (09:02)
[2021-11-14] MEDS: PANTOprazole 40 MG TAB PO SCH (09:02)
[2021-11-14] MEDS: ASPIRIN 81 MG ECTAB PO SCH (09:02)
[2021-11-14] MEDS: OXYBUTYNIN CHLORIDE XL 5 MG TABCR PO SCH (09:02)
[2021-11-14] MEDS: SPIRONOLACTONE 25 MG TAB PO SCH (09:02)
[2021-11-14] MEDS: CHOLECALCIFEROL 1,000 UNITS 25 MCG TAB PO SCH (09:03)
[2021-11-14] MEDS: DULoxetine HCL 60 MG CAP PO SCH (09:03)
[2021-11-14] MEDS: CEROVITE ADV FORMULA TAB PO SCH (09:03)
[2021-11-14] MEDS: buPROPion XL 150 MG TABCR PO SCH (09:04)
[2021-11-14] MEDS: prednisoLONE acetate 1% OP SUSP 5 ML BTL OPR SCH ×4 (09:04→21:57)
[2021-11-14] MEDS: TRIMETHOPRIM/POLYMYXIN B OPL SCH ×3 (09:06→21:56)
[2021-11-14] MEDS: ARTIFICIAL TEARS OP SCH ×4 (09:07→21:54)
--- NOTE | 2021-11-14 09:55 | Pharmacy Report ---
Pharmacy Glycemic Short Note 2 - Date of Service November 14, 2021 - Glycemic Short BSG Results (Last 24 hours): 11/13/21 11/13/21 11/13/21 15:07 15:09 16:55 Glucose POC Glucose 316 H* 339 H* 302 H* 11/13/21 11/13/21 11/14/21 19:57 19:59 00:17 Glucose POC Glucose 307 H* 301 H* 221 H 11/14/21 11/14/21 11/14/21 04:12 06:20 07:26 Glucose 145 H POC Glucose 150 H 156 H OUTPATIENT ANTIDIABETIC REGIMEN: * Lantus 80 units SQ qAM * Lantus 25 units SQ HS * Novolin R 10 units SQ TIDM * HbA1c = 11.3% (11/14/21) ASSESSMENT: * 71 yo M admitted yesterday secondary to recurrent falls. Pharmacy has been consulted to assist with inpatient glycemic management. Patient is well known to our service. Given recent trend up in A1c, spoke with patient today regarding home insulin regimen. Patient was very confused when it came to home insulin regimen. Takes long acting "based on blood sugars" and as for dosing "guess 25 units twice a day". Did report taking 10-15 units of Novolin R with meals. * Admission BSG was 251 mg/dL yesterday morning. No insulin was administered in the ED and by the time the patient reached the floor, BSG was 302 mg/dL. He was given 80 units of Lantus at that time and started on Novolog per previous admission data. Another 25 units of Lantus was given at HS and overnight checks were added. * Fasting BSG was 156 mg/dL this AM - controlled. Will continue with outpatient Lantus dosing. Novolog was tightened last evening and will continue for now. PLAN FOR INPATIENT GLYCEMIC CONTROL: * Basal insulin * Lantus 80 units SQ qAM * Lantus 25 units SQ HS * Bolus insulin * NovoLog per scale ACHS or Q6hrs while NPO * Goal Range: Low 110 mg/dL - High 140 mg/dL * Correction Factor: 15 mg/dL/unit * Nutritional / Prandial insulin per carb ratio of 1 unit per 4 grams CHO consumed
[2021-11-14] MEDS: FUROSEMIDE 80 MG TAB PO SCH ×2 (10:52→16:30)
--- NOTE | 2021-11-14 11:51 | Electrocardiogram Report ---
Test Reason : Blood Pressure : / mmHG Vent. Rate : 060 BPM Atrial Rate : 340 BPM P-R Int : 000 ms QRS Dur : 168 ms QT Int : 476 ms P-R-T Axes : 000 -68 032 degrees QTc Int : 476 ms Sinus rhythm with a demand pacemaker Right bundle branch block Abnormal ECG When compared with ECG of 01-NOV-2021 08:09, No significant change Confirmed by Arley Newman ([id number]) on 11/14/2021 11:51:01 AM Referred By: Sergo Khan Confirmed By:Arley Newman
--- NOTE | 2021-11-14 14:44 | Hospitalist Progress Note ---
Date of Service November 14, 2021 Assessment & Plan (1) Ambulatory dysfunction: (2) Recurrent falls: Plan: As per H and P: Patient is 71-year-old male with PMH DM II, HTN, HLD, chronic diastolic CHF, history of tachycardia induced cardiomyopathy EF 50 to 60% on echo 10/2020, h/o PE, on chronic anticoagulation, paroxysmal atrial fibrillation, tachybradycardia syndrome s/p pacemaker, CKD III, COPD, hypothyroidism, obesity history COVID-19 07/2021 presented to ER with complaint of frequent falls. Denies dizziness, syncope, CP, SOB to this provider Frequent falls ambulatory dysfunction CT Head: no acute changes Fall precautions PT/OT eval orthostatic vitals Hypokalemia: K: 2.9, Magnesium WNL replaced. continue home supplements for now and monitor DM II A1c: 9.5 on 07/12/21 HBA1c 11.2 poorly controlled diabetic education Basal bolus insulin per protocol needs close monitor Chronic diastolic CHF History tachycardia induced cardiomyopathy EF: 50-60% on echo 10/2020 on lasix 80mg bid with potassium 20meq po bid on aldcatone 25mg daily and metolazone prn will monitor PAF on metoprolol succinate, digoxin Digoxin level 1.1 rates under control on eliquis History PE On Eliquis Eliquis CKD III Cr: 1.6. Baseline ~1.5 will follow labs Tachybrady Syndrome S/P Pacemaker SALAS Noncompliant with Bipap Hypothyroidism Continue levothyroxine DVT Prophylaxis On Eliquis Full Code as per h and p. Is to start following with [facility] Provider soon for routine care PT/OT may need rehab Admission and Anticipated Discharge Date Admission Date: November 13, 2021 Subjective sitting on the chair ambulated in the room denies any chest pain or sob no nausea no cough afebrile eating ok no dysphagia normal bowel and bladder movements Review of Systems Review of Systems: All systems reviewed & are unremarkable except as noted in Subjective Physical Exam Constitutional: WD/WN, vitals as above Neck: trachea midline, no thyromegaly Respiratory: normal respiratory effort, lungs clear to auscultation Cardiovascular: Rate/Rhythm: regular rate and regular rhythm Heart Sounds: normal S1 and normal S2 Extremities: + pedal edema Gastrointestinal (Abdomen): normal bowel sounds, soft, nontender, no hepatosplenomegaly Neurologic: EOMI, No facial palsy, no dysarthria, moves extremities Psychiatric: A+Ox3, euthymic affect Results & Data Results & Data ([facility]) Vital Signs (Past 12 Hours) Vital Signs Temp Pulse Pulse Resp BP BP Pulse Ox 11/14/21 10:48 36.7 C 63 22 155/75 H 94 11/14/21 09:34 83 11/14/21 07:00 37.7 C H 76 20 114/64 93 11/14/21 03:20 37.7 C H 77 20 112/52 L 95
[2021-11-14] MEDS: DIGOXIN 0.125 MG TAB PO SCH (16:29)
[2021-11-14] MEDS: ARTIFICIAL TEARS OP OINT 3.5 GM TUBE OPB SCH (21:55)
[2021-11-14] MEDS: ATORVASTATIN 10 MG TAB PO SCH (21:55)
[2021-11-14 23:20] LABS: Calcium 9.5 mg/dl (8.5-10.1); Creatinine Clr Calc Pharmacy 49.6 ml/min; Est GFR (African American) 42.4 ml/min; Est GFR (Non-African American) 36.6 ml/min; Potassium 3.3 mmol/L (3.5-5.1)
[2021-11-15] MEDS: LEVOTHYROXINE SODIUM 125 MCG TABLET PO SCH (05:40)
[2021-11-15] MEDS: POTASSIUM CHLORIDE CRTAB 20 MEQ TABCR PO SCH (07:43)
[2021-11-15] MEDS: FUROSEMIDE 80 MG TAB PO SCH (07:43)
[2021-11-15] MEDS: METOPROLOL SUCC 50MG EXT REL TAB PO SCH (07:43)
[2021-11-15] MEDS: PANTOprazole 40 MG TAB PO SCH (07:43)
[2021-11-15] MEDS: OXYBUTYNIN CHLORIDE XL 5 MG TABCR PO SCH (07:44)
[2021-11-15] MEDS: buPROPion XL 150 MG TABCR PO SCH (07:44)
[2021-11-15] MEDS: APIXABAN 5 MG TABLET PO SCH (07:44)
[2021-11-15] MEDS: GABAPENTIN 300 MG CAP PO SCH (07:44)
[2021-11-15] MEDS: CEROVITE ADV FORMULA TAB PO SCH (07:44)
[2021-11-15] MEDS: allopurinoL 300 MG TAB PO SCH (07:45)
[2021-11-15] MEDS: MAGNESIUM OXIDE 400 MG TAB PO SCH (07:45)
[2021-11-15] MEDS: DULoxetine HCL 60 MG CAP PO SCH (07:45)
[2021-11-15] MEDS: CHOLECALCIFEROL 1,000 UNITS 25 MCG TAB PO SCH (07:45)
[2021-11-15] MEDS: SPIRONOLACTONE 25 MG TAB PO SCH (07:45)
[2021-11-15] MEDS: SENNA 8.6 MG TAB PO SCH (07:45)
[2021-11-15] MEDS: ASPIRIN 81 MG ECTAB PO SCH (07:46)
[2021-11-15] MEDS: TRIMETHOPRIM/POLYMYXIN B OPL SCH (07:47)
[2021-11-15] MEDS: prednisoLONE acetate 1% OP SUSP 5 ML BTL OPR SCH (07:47)
[2021-11-15] MEDS: ARTIFICIAL TEARS OP SCH (07:48)
[2021-11-15] MEDS: INSULIN ASPART PER UNIT SC SCH ×2 (08:48→12:37)
[2021-11-15] MEDS: INSULIN GLARGINE SOLOSTAR 100 UNITS/ML 3 ML PEN SC SCH (08:49)
--- NOTE | 2021-11-15 08:49 | Hospitalist Progress Note ---
Date of Service November 15, 2021 Assessment & Plan (1) Ambulatory dysfunction: (2) Recurrent falls: Plan: 71-year-old male with PMH DM II, HTN, HLD, chronic diastolic CHF, history of tachycardia induced cardiomyopathy EF 50 to 60% on echo 10/2020, h/o PE, on chronic anticoagulation, paroxysmal atrial fibrillation, tachybradycardia syndrome s/p pacemaker, CKD III, COPD, hypothyroidism, obesity history COVID-19 07/2021 presented to ER with complaint of frequent falls. Frequent falls Ambulatory dysfunction CT Head: no acute changes Fall precautions Reports he uses walker at [facility] Awaiting PT evaluation to determine disposition Hypokalemia: K: 2.9 Repleted Continue to monitor and replete CKD III For the past 3 months Cr has been about 1.5 Has been higher last year on review of outpatient records on [facility] Cr was 1.84 last night Awaiting AM labs Monitor renal function and avoid nephrotoxins DM II A1c: 9.5 on 07/12/21 HBA1c 11.2 poorly controlled diabetic education Basal bolus insulin per protocol needs close monitor Chronic diastolic CHF History tachycardia induced cardiomyopathy EF: 50-60% on echo 10/2020 On lasix 80mg bid with potassium 20meq po bid Got lasix this AM. Holding PM dose till BMP results On aldactone 25mg daily and metolazone prn PAF On metoprolol succinate, digoxin Digoxin level 1.1 On eliquis History of PE On Eliquis Tachybrady Syndrome S/P Pacemaker SALAS Noncompliant with Bipap Hypothyroidism Continue levothyroxine DVT Prophylaxis On Eliquis Awaiting PT eval to determine disposition Admission and Anticipated Discharge Date Admission Date: November 13, 2021 Subjective Patient seen and examined. Just finished breakfast. Denies any chest pain, cough, shortness of breath Denies nausea, vomiting, abdominal pain diarrhea constipation Denies any dysuria, frequency, urgency, incontinence Denies any fevers, chills Physical Exam Constitutional: + well hydrated and + obese; no acute distress Eyes: PERRL, conjunctivae normal, anicteric sclerae ENMT: external ear and nose normal, oropharynx normal Respiratory: normal respiratory effort, lungs clear to auscultation Cardiovascular: Rate/Rhythm: regular rate and regular rhythm S1 S2 Gastrointestinal (Abdomen): normal bowel sounds, soft, nontender, no hepatosplenomegaly Musculoskeletal: +pedal edema Neurologic: PERRL, EOMI, accommodation nl, no face palsy, no dysarthria Psychiatric: A+Ox3, euthymic affect Results & Data Results & Data ([facility]) Vital Signs (Past 12 Hours) Vital Signs Temp Pulse Pulse Resp BP BP Pulse Ox 11/15/21 07:00 36.4 C L 75 20 116/65 92 11/15/21 03:43 36.6 C 71 18 117/65 90 11/14/21 23:17 36.5 C 69 18 119/61 92 11/14/21 22:44 71 11/14/21 22:01 78 Laboratory Results Abnormal lab results 11/14/21 11/14/21 11/15/21 Range/Units 11:32 22:32 07:38 Potassium 3.3 L (3.5-5.1) mmol/L Chloride 95 L (98-107) mmol/L Carbon Dioxide 35 H (21-32) mmol/L BUN 46 H (6-23) mg/dl Creatinine 1.84 H (0.6-1.4) mg/dl BUN/Creatinine Ratio 25.0 H (10-20) Glucose 104 H (70-99(Fasting)) mg/dl POC Glucose 210 H 217 H (70-99) mg/dl
[2021-11-15 09:27] LABS: BUN Creatinine Ratio 28.5 (10-20); Calcium 9.4 mg/dl (8.5-10.1); Creatinine Clr Calc Pharmacy 57.7 ml/min
--- NOTE | 2021-11-15 11:08 | Discharge Summary ---
Date of Service November 15, 2021 Admission HPI Per Admitting Provider Patient is 71-year-old male with PMH DM II, HTN, HLD, chronic diastolic CHF, history of tachycardia induced cardiomyopathy EF 50 to 60% on echo 10/2020, h/o PE, on chronic anticoagulation, paroxysmal atrial fibrillation, tachybradycardia syndrome s/p pacemaker, CKD III, COPD, hypothyroidism, obesity history COVID-19 07/2021 presented to ER with complaint of frequent falls. Patient reports has been falling more frequently. He thinks has fallen a couple of times a week. Denies syncope. Patient denies any dizziness, CP, SOB prior to fall. He reports using a walker but still falling. He thinks his knees are giving out causing him to fall. Patient reports he is to start physical therapy at [facility] soon. Denies fever/chills, diaphoresis, N/V/D/C, SIMPSON, dizziness, syncope, vision changes, neck pain, CP, SOB, orthopnea, palpitations, cough, sore throat, choking, otalgia, rhinorrhea, abdominal pain, paresthesias, weakness, extremity weakness, extremity edema, rashes, urinary symptoms. Admission Exam Per Admitting Provider General: no acute distress, +obese Head: normocephalic, atraumatic Eyes: PERRL, EOM's intact, conjunctiva non-injected, anicteric ENT: normal inspection external ears, nose, mucous membranes moist Neck: supple, trachea midline Lungs: clear, no respiratory distress, no wheezing/rhonchi/rales, 95% on RA CV: irregularly irregular, no pretibial edema Abd: protuberant, normal BS, soft, non-tender Ext: no cyanosis, no calf tenderness, chronic venous stasis skin changes Neuro: A&O x 3, no focal deficits noted, normal affect Skin: warm, dry Principal Diagnosis Recurrent fall Ambulatory dysfunction Discharge Exam Constitutional + well hydrated and + obese; no acute distress Eyes PERRL, conjunctivae normal, anicteric sclerae ENMT external ear and nose normal, oropharynx normal Respiratory normal respiratory effort, lungs clear to auscultation Cardiovascular Rate/Rhythm: regular rate and regular rhythm S1 S2 Gastrointestinal (Abdomen) normal bowel sounds, soft, nontender, no hepatosplenomegaly Musculoskeletal +pedal edema Neurologic PERRL, EOMI, accommodation nl, no face palsy, no dysarthria Psychiatric A+Ox3, euthymic affect Discharge Data Allergies Allergy/AdvReac Type Severity Reaction Status Date / Time No Known Allergies Allergy Verified 11/01/21 09:13 Consultations 11/13/21 12:53 ED Decision to Admit Stat Ordered Studies 11/13/21 06:35 CT head/brain wo con Stat No acute intracranial hemorrhage, midline shift, intracranial mass, hydrocephalus, territorial ischemia or abnormal extra-axial collection. Mild involutional changes. Cerebral vascular calcifications. Unchanged subcentimeter hypodense focus of the right paramedian zuleika on image 11. The calvarium is intact. Prior bilateral lens repair. There is a small right forehead contusion. The paranasal sinuses, mastoid air cells, and middle ear cavities are clear. IMPRESSION: 1. No acute intracranial abnormality or calvarial fracture. 2. Small right forehead contusion. Diabetes Follow up Diabetes Follow-up Needed for HgbA1c >9% Hospital Course (1) Ambulatory dysfunction: (2) Recurrent falls: 71-year-old male with PMH DM II, HTN, HLD, chronic diastolic CHF, history of tachycardia induced cardiomyopathy EF 50 to 60% on echo 10/2020, h/o PE, on chronic anticoagulation, paroxysmal atrial fibrillation, tachybradycardia syndrome s/p pacemaker, CKD III, COPD, hypothyroidism, obesity history COVID-19 07/2021 presented to ER with complaint of frequent falls. Frequent falls Ambulatory dysfunction CT Head: No acute intracranial abnormalities. small right forehead contusion Educated on Fall precautions Reports he uses walker at [facility] Was evaluated by PT/OT Hypokalemia: K: 2.9 Repleted K is 4 today CKD III For the past 3 months Cr has been about 1.5 Has been higher last year on review of outpatient records on [facility] Cr was 1.58 today DM II A1c: 9.5 on 07/12/21 HBA1c 11.2 Poorly controlled Provided diabetic education Monitor home blood glucose Chronic diastolic CHF History tachycardia induced cardiomyopathy EF: 50-60% on echo 10/2020 Continue home lasix 80mg bid with potassium 20meq po bid On aldactone 25mg daily and metolazone prn PAF On metoprolol succinate, digoxin Digoxin level 1.1 On eliquis History of PE On Eliquis Tachybrady Syndrome S/P Pacemaker SALAS Noncompliant with Bipap Hypothyroidism Continue levothyroxine Discharged to [facility] Total Time Total Time Spent Total Time Spent (In Minutes): 45 Total Time Includes: Examination of the Patient, Discharge Planning and Medication Reconciliation Discharge Plan Discharge Items Patient Disposition: Personal Fdc Reason For Visit: RECURRENT FALLS Discharge Diagnosis: Recurrent fall Ambulatory dysfunction Activity: Resume your previous activity Activity Comment: With walker Non-emergency contact: Primary Care Provider Call non-emergency contact if: you have any medication questions and your symptoms worsen [facility] [Primary Care Provider] - Diet: Carb Consistent or DM2, Heart Healthy and Low Sodium (2gm) Addtl Attending Provider Instructions: Mr Andujar. You presented to the hospital with recurrent falls. You also had low potassium on presentation. You were evaluated by Occupational and Physical therapists. You are being discharged back to the personal snf. Please use your walker with ambulation and exercise the fall precautions discussed with you. It was a pleasure taking care of you Pending Studies at Discharge: No Stand-Alone Forms: My [employer]ItAll, Smoking Cessation Skilled Items Patient informed of condition?: Yes DNR: No Discharge Level of Care: Other Communicable Disease: No Discharge Prognosis: Stable Lines: None Urinary Catheter: No Medications and DC Order Prescriptions: Continued aspirin [Adult Low Dose Aspirin] 81 mg tablet,delayed release (DR/EC) 81 mg PO QAM RF: 0 duloxetine 60 mg capsule,delayed release(DR/EC) 60 mg PO QAM RF: 0 oxybutynin chloride [Ditropan XL] 10 mg tablet extended release 24hr 10 mg PO DAILY RF: 0 digoxin 125 mcg Tablet 0.125 mg PO DAILY@1800 Qty: 0 RF: 0 allopurinol 300 mg tablet 300 mg PO QAM RF: 0 omeprazole 20 mg capsule,delayed release(DR/EC) 20 mg PO QAM RF: 0 atorvastatin 20 mg tablet 10 mg PO HS RF: 0 meclizine 12.5 mg tablet 12.5 mg PO TID PRN (Reason: Vertigo) RF: 0 albuterol sulfate 90 mcg/actuation HFA aerosol inhaler 2 puffs INH QID PRN (Reason: Shortness Of Breath Or Wheezing) RF: 0 bupropion HCl 150 mg tablet extended release 24 hr 150 mg PO QAM RF: 0 potassium chloride [Klor-Con M20] 20 mEq tablet,ER particles/crystals 20 meq PO BID RF: 0 nitroglycerin 0.4 mg tablet, sublingual 0.4 mg sublingual UD PRN (Reason: Chest Pain) RF: 0 Multiple Vitamin-Minerals Tablet 1 tab PO DAILY RF: 0 nystatin 100,000 unit/gram Powder 1 applic TOPICAL BID RF: 0 acetaminophen 325 mg Tablet 650 mg PO Q4H PRN (Reason: pain) RF: 0 Novolin R Flexpen 100 unit/mL (3 mL) Insulin Pen 10 unit SUBCUT TIDM RF: 0 Lantus Solostar U-100 Insulin 100 unit/mL (3 mL) insulin pen 80 unit SC DAILY RF: 0 Lantus Solostar U-100 Insulin 100 unit/mL (3 mL) insulin pen 25 unit SC HS RF: 0 metolazone 2.5 mg Tablet 2.5 mg PO DAILY PRN (Reason: WT GAIN 3#/24 HRS OR 5#/48 HRS.) RF: 0 spironolactone [Aldactone] 25 mg tablet 25 mg PO DAILY RF: 0 furosemide 80 mg tablet 80 mg PO BID RF: 0 apixaban 5 mg Tablet 5 mg PO BID RF: 0 gabapentin 300 mg capsule 300 mg PO TID RF: 0 (DME) blood-glucose meter [Contour Next Glucose Meter] Kit See Rx Instructions .Route Qty: 1 RF: 0 (DME) Contour Next Test Strips Strip See Rx Instructions .Route Qty: 50 RF: 3 (DME) lancets [Microlet Lancet] Misc See Rx Instructions .Route Qty: 100 RF: 1 levothyroxine 125 mcg Tablet 250 mcg PO DAILY@0600 RF: 0 polymyxin B sulf-trimethoprim 10,000 unit- 1 mg/mL drops 1 drp OPL TID RF: 0 Refresh Classic (PF) 1.4-0.6 % Dropperette 1 drp OPB QID RF: 0 artificial tears with lanolin Ointment 1 applic OPB HS RF: 0 cholecalciferol (vitamin D3) [Vitamin D3] 25 mcg (1,000 unit) Tablet 50 mcg PO DAILY RF: 0 prednisolone acetate 1 % drops,suspension 1 drp ophthalmic (eye) QID RF: 0 sennosides 8.6 mg Capsule 8.6 mg PO BID RF: 0 magnesium oxide 400 mg magnesium Tablet 400 mg PO DAILY RF: 0 metoprolol succinate 100 mg tablet extended release 24 hr 150 mg PO BID RF: 0 Discharge Orders: Discharge Order (Routine); Ordered 11/15/21 Ordered By: Rasheeda Keith Admission Data Admit Date/Time: 11/13/21 13:41 Attending Provider: Rasheeda Keith I. Admit Provider: Sanford Sunshine [facility] Other Providers: Sanford Sunshine ; Mohit Newton Other Interventions: Discharge Summary Assessment (RN) Last Done: 11/15/21 12:12
== END 2021-11-15 14:26 | disposition home or self-care (01) ==
LOC: ED 06:10 → 2N 13:23 → SUATTDRO 13:23 → INTOOBSV 13:41 → 2N 14:45

== ENCOUNTER 2021-12-28 05:00 | Inpatient (IN) ==
--- NOTE | 2021-12-28 05:28 | Emergency Department Note ---
Impression & Plan Generalized weakness, Near syncope, Hyperglycemia due to type 2 diabetes mellitus, Hypokalemia [facility]. ED Provider Note NAME: CECILE KENDALL AGE: 71 SEX: M ARRIVES VIA: Ambulance INFORMANT: Patient and EMS ED PROVIDER(S): Cristiana Ram DO CHIEF COMPLAINT: Weakness PLAN: Disposition: [facility] Condition: Stable MEDICAL DECISION MAKING: This is a 71-year-old male patient with extensive past medical history who presents to the emergency department with increased weakness, dizziness and unable to bear weight. The patient was sent here from [facility] for evaluation. Patient was noted to be significantly hyperglycemic. Triage Nursing notes reviewed and agree with them. Additional history obtained from nurse Prior medical records reviewed Vital Signs: reviewed and unremarkable Differential diagnosis: Sepsis, UTI, hypoglycemia, hyperglycemia, electrolyte abnormality ER treatment provided: Oral potassium Normal saline bolus Normal saline drip Diagnostics interpreted by me: ECG: Atrial fibrillation at a rate of 63 with frequent ventricular paced complexes. There is a right bundle branch block. There is some ST segment depression in leads V2, V3 and V4 which is new in comparison to previous EKGs. Cardiac Monitoring: Normal sinus rhythm at a rate of 61. Laboratory studies: See below Imaging studies: As per interpretation Portable chest x-ray: No acute pulmonary infiltrates or consolidation HPI: 71/M arrives for evaluation of weakness. The patient describes becoming increasingly weak and dizzy over the past 24 hours. According to EMS, the patient was unable to bear weight with staff at [facility]. He was noted to have an increased BSG for EMS. The patient had a near syncopal event and was lowered to the ground. ROS: See above HPI for pertinent positives & negatives. A total of 10 systems reviewed and were otherwise negative. PAST MEDICAL HISTORY:See Below PAST SURGICAL HISTORY:See Below FAMILY HISTORY:See Below SOCIAL HISTORY:See Below HOME MEDICATIONS:See list ALLERGIES:None VITALS:See Below PHYSICAL EXAMINATION: HEENT: Head - normocephalic and atraumatic. Pupils are equal, round, and reactive to light. Extraocular eye muscles are intact, and sclera are anicteric. There is significant discharge from both eyes. Nose - moist nasal mucosa without discharge. Mouth - moist buccal mucosa. Oropharynx is nonerythematous and there is no tonsillar exudate or edema noted. Neck: Supple; no nuchal rigidity or JVD Heart: Regular rate and rhythm. There is a normal S1 and S2 with no murmurs, clicks, or gallops appreciated. Lungs: Clear to auscultation bilaterally with no wheezes, rales, or rhonchi. Abdomen: Soft, completely nontender, nondistended, with good bowel sounds. There are no palpable pulsatile masses or hepatosplenomegaly. There is no guarding, rigidity, or rebound noted. Extremities: No evidence of cyanosis, clubbing, or edema. There are easily palpable peripheral pulses. Skin: Extremely cold to touch about both upper extremities. Slow a warmer to touch about both lower extremities. ED COURSE: Times/Reassessments: 505: The patient was evaluated in room B4. A complete hi story and physical was performed. Previous electronic medical records were reviewed. Laboratory studies were drawn as above. Portable chest x-ray was obtained. An order was placed for continuous cardiac monitoring. The patient was in a normal sinus rhythm at a rate of 61. A twelve-lead EKG was obtained as described above. Patient had a strong odor of urine. A urine specimen was obtained and was negative for UTI. Patient was bolused with IV normal saline solution. He was started on a normal saline drip. He was given a dose of oral potassium. Patient continued to exhibit signs of generalized weakness. [facility] the [facility] and they will evaluate for further management. Cristiana Ram DO Past Med/Surg History Medical History Abnormal chest x-ray 06/18/20 right hilar opacity, f/u recommended Anticoagulant long-term use Arthritis Atrial fibrillation paroxysmal Atrial flutter Bifascicular block CAD (coronary artery disease) Cardiac pacemaker in situ Cardiomyopathy Chronic anticoagulation Chronic diastolic CHF (congestive heart failure) Chronic venous insufficiency CKD (chronic kidney disease) stage 3, GFR 30-59 ml/min Claustrophobia Closed fracture of thyroid cartilage COPD, moderate Depression Diabetes mellitus, type 2 insulin pump Fatty liver Gout Hyperlipidemia Hypertension Hypothyroidism Iatrogenic pulmonary embolism Interstitial lung disease Morbid obesity MRSA infection Nephrolithiasis Nocturnal hypoxemia SALAS (obstructive sleep apnea) Osteoarthritis Paroxysmal atrial fibrillation Prolonged QT interval Pulmonary embolism B/L- 5+ years ago Sarcoidosis possible- evaluated by pulmonary; felt no active sarcoidosis and would not merit steroid therapy given weight/diabetic state. 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 "prior EF of 25% while in aflutter, subsequently normal in NSR" Surgical History H/O cardiac radiofrequency ablation H/O prior ablation treatment History of arthroscopic knee surgery History of bronchoscopy History of cataract surgery local anesthesia only per pt History of cholecystectomy History of extraction of renal calculus History of lung surgery thoracoscopy, right VATS, wedge resection History of umbilical hernia repair Hx of carpal tunnel repair Pacemaker Implanted 02/2017 secondary to Sinus node dysfunction/tachy sherry syndrome/3rd degree AVB [employer] Pacer check 12/24/17 Status post incision and drainage Family History Mother Cancer Social History Smoking Status: Never smoker Second Hand Exposure: No; Hx Alcohol Use: No Hx Substance Use: No Preferred Language: Colombian Communication Ability: Effective Visual Impairment: Limited Hearing Ability: Normal Maid Cleaning Cooking Required: No Beliefs That Will Affect Care: None marital status: Current Living Situation: [facility] Current Living Situation Comment: [facility] current occupational status: retired How many Children do You have: 2 How many Children do You have Comment: children are not involved with care much per pt Feels Safe at Home: Yes Diet Comment: FLUID RESTRICTION during the past year weight has: other Assistive Devices: Walker Allergies Allergies Allergy/AdvReac Type Severity Reaction Status Date / Time No Known Allergies Allergy Verified 12/28/21 06:33 Home Meds Home Medications Medication Instructions Recorded Confirmed digoxin 125 mcg (0.125 mg) tablet 0.125 mg PO DAILY@1800 #0 07/13/16 12/28/21 aspirin 81 mg tablet,delayed 81 mg PO DAILY 05/11/18 12/28/21 release (Adult Low Dose Aspirin) duloxetine 60 mg capsule,delayed 60 mg PO DAILY 08/31/18 12/28/21 release allopurinol 300 mg tablet 300 mg PO DAILY 05/25/19 12/28/21 omeprazole 20 mg capsule,delayed 20 mg PO QAM 05/25/19 12/28/21 release potassium chloride 20 mEq 20 meq PO BID 07/12/19 12/28/21 tablet,extended release(part/cryst) (Klor-Con M) albuterol sulfate 90 mcg/actuation 2 puffs INH Q4H PRN gm 12/14/19 12/28/21 aerosol inhaler atorvastatin 20 mg tablet 10 mg PO HS 12/14/19 12/28/21 meclizine 12.5 mg tablet 12.5 mg PO TID PRN 12/14/19 12/28/21 bupropion HCl 150 mg 24 hr tablet, 150 mg PO QAM 02/13/20 12/28/21 extended release oxybutynin chloride 10 mg 10 mg PO DAILY 03/29/20 12/28/21 tablet,extended release 24 hr (Ditropan XL) multivitamin with minerals 1 tab PO DAILY 06/19/20 12/28/21 (Multiple Vitamin-Minerals) nitroglycerin 0.4 mg sublingual 0.4 mg SUBLINGUAL UD PRN 06/19/20 12/28/21 tablet furosemide 80 mg tablet 80 mg PO BID 11/01/20 12/28/21 spironolactone 25 mg tablet 25 mg PO DAILY 11/01/20 12/28/21 (Aldactone) nystatin 100,000 unit/gram topical 1 applic TOPICAL BID 03/04/21 12/28/21 powder apixaban 5 mg tablet 5 mg PO BID 07/11/21 12/28/21 gabapentin 300 mg capsule 300 mg PO Q8H 07/27/21 12/28/21 acetaminophen 325 mg tablet 650 mg PO Q4H PRN 08/10/21 12/28/21 insulin glargine 100 unit/mL (3 35 unit SC HS 08/10/21 12/28/21 mL) subcutaneous pen (Lantus Solostar U-100 Insulin) insulin glargine 100 unit/mL (3 85 unit SC DAILY 08/10/21 12/28/21 mL) subcutaneous pen (Lantus Solostar U-100 Insulin) insulin regular human 100 unit/mL 10 unit SUBCUT TIDM 08/10/21 12/28/21 (3 mL) subcutaneous pen (Novolin R Flexpen) cholecalciferol (vitamin D3) 25 50 mcg PO DAILY 11/01/21 12/28/21 mcg (1,000 unit) tablet (Vitamin D3) levothyroxine 125 mcg tablet 250 mcg PO DAILY@0600 11/01/21 12/28/21 polyvinyl alcohol-povidone (PF) 1 drp OPB Q2H 11/01/21 12/28/21 1.4 %-0.6 % eye drops in a dropperette (Refresh Classic (PF)) magnesium oxide 400 mg PO DAILY 11/13/21 12/28/21 sennosides 8.6 mg capsule 8.6 mg PO BID 11/13/21 12/28/21 Vancomycin Fortified Oph Drops drp OPB QID 12/28/21 epinephrine 0.3 mg/0.3 mL 0.3 mg IM ONCE PRN 12/28/21 12/28/21 injection syringe metoprolol succinate 50 mg 150 mg PO BID 12/28/21 12/28/21 tablet,extended release 24 hr moxifloxacin 0.5 % viscous eye 1 drp OPB Q4H 12/28/21 12/28/21 drops Previous Rx's Medication Instructions Recorded blood sugar diagnostic (Contour #50 ea 07/31/21 Next Test Strips) blood-glucose meter (Contour Next #1 ea 07/31/21 Glucose Meter) lancets (Microlet Lancet) #100 ea 07/31/21 Results & Data (ED) Vital Signs Vital Signs - 24 hr 12/28/21 05:05 12/28/21 05:10 12/28/21 05:11 Temperature 36.7 C Temperature Source Oral Pulse Rate 78 69 73 Pulse Rate from SpO2 Sensor 78 69 Pulse Rhythm Respiratory Rate 19 18 14 Respiratory Depth Normal Blood Pressure 131/84 Blood Pressure Mean 99 Blood Pressure Position Lying Pulse Oximetry 95 92 97 Oxygen Delivery Method Room Air Sepsis Recent Fever Within 48 Hours No Sepsis New/Unexplained Change in Mental Status No Sepsis Action Taken by Nursing No Action Required 12/28/21 05:20 12/28/21 05:28 12/28/21 05:30 Temperature Temperature Source Pulse Rate 62 68 72 Pulse Rate from SpO2 Sensor 62 68 Pulse Rhythm Regular Respiratory Rate 21 14 22 Respiratory Depth Blood Pressure 128/97 Blood Pressure Mean 107 Blood Pressure Position Pulse Oximetry 95 97 92 Oxygen Delivery Method Room Air Sepsis Recent Fever Within 48 Hours Sepsis New/Unexplained Change in Mental Status Sepsis Action Taken by Nursing 12/28/21 05:40 12/28/21 05:50 12/28/21 06:00 Temperature Temperature Source Pulse Rate 66 66 64 Pulse Rate from SpO2 Sensor 65 67 63 Pulse Rhythm Respiratory Rate 20 18 21 Respiratory Depth Blood Pressure 128/74 Blood Pressure Mean 92 Blood Pressure Position Pulse Oximetry 98 97 98 Oxygen Delivery Method Sepsis Recent Fever Within 48 Hours Sepsis New/Unexplained Change in Mental Status Sepsis Action Taken by Nursing 12/28/21 06:10 12/28/21 06:20 12/28/21 06:30 Temperature Temperature Source Pulse Rate 71 66 65 Pulse Rate from SpO2 Sensor 71 66 65 Pulse Rhythm Respiratory Rate 18 21 20 Respiratory Depth Blood Pressure 136/79 Blood Pressure Mean 98 Blood Pressure Position Pulse Oximetry 96 94 92 Oxygen Delivery Method Sepsis Recent Fever Within 48 Hours Sepsis New/Unexplained Change in Mental Status Sepsis Action Taken by Nursing 12/28/21 06:40 12/28/21 06:50 12/28/21 07:00 Temperature Temperature Source Pulse Rate 61 63 67 Pulse Rate from SpO2 Sensor 64 62 66 Pulse Rhythm Respiratory Rate 25 H 21 18 Respiratory Depth Blood Pressure 119/78 Blood Pressure Mean 91 Blood Pressure Position Pulse Oximetry 93 95 96 Oxygen Delivery Method Sepsis Recent Fever Within 48 Hours Sepsis New/Unexplained Change in Mental Status Sepsis Action Taken by Nursing 12/28/21 07:10 12/28/21 07:30 12/28/21 07:40 Temperature Temperature Source Pulse Rate 65 66 Pulse Rate from SpO2 Sensor 65 64 Pulse Rhythm Respiratory Rate 26 H 21 Respiratory Depth Blood Pressure 135/80 Blood Pressure Mean 98 Blood Pressure Position Pulse Oximetry 97 100 Oxygen Delivery Method Sepsis Recent Fever Within 48 Hours Sepsis New/Unexplained Change in Mental Status Sepsis Action Taken by Nursing 12/28/21 07:50 12/28/21 08:00 12/28/21 08:10 Temperature Temperature Source Pulse Rate 67 66 68 Pulse Rate from SpO2 Sensor 64 63 68 Pulse Rhythm Respiratory Rate 24 20 24 Respiratory Depth Blood Pressure 122/75 Blood Pressure Mean 90 Blood Pressure Position Pulse Oximetry 100 99 98 Oxygen Delivery Method Sepsis Recent Fever Within 48 Hours Sepsis New/Unexplained Change in Mental Status Sepsis Action Taken by Nursing 12/28/21 08:20 12/28/21 08:30 12/28/21 08:40 Temperature Temperature Source Pulse Rate 68 63 66 Pulse Rate from SpO2 Sensor 66 64 66 Pulse Rhythm Respiratory Rate 17 25 H 24 Respiratory Depth Blood Pressure 123/72 Blood Pressure Mean 89 Blood Pressure Position Pulse Oximetry 100 99 100 Oxygen Delivery Method Sepsis Recent Fever Within 48 Hours Sepsis New/Unexplained Change in Mental Status Sepsis Action Taken by Nursing 12/28/21 08:50 12/28/21 09:00 12/28/21 09:02 Temperature Temperature Source Pulse Rate 68 70 63 Pulse Rate from SpO2 Sensor 66 65 68 Pulse Rhythm Respiratory Rate 24 18 16 Respiratory Depth Blood Pressure 91/75 L Blood Pressure Mean 80 Blood Pressure Position Pulse Oximetry 98 98 95 Oxygen Delivery Method Sepsis Recent Fever Within 48 Hours Sepsis New/Unexplained Change in Mental Status Sepsis Action Taken by Nursing 12/28/21 09:10 12/28/21 09:20 12/28/21 09:30 Temperature Temperature Source Pulse Rate 65 67 64 Pulse Rate from SpO2 Sensor 66 68 67 Pulse Rhythm Respiratory Rate 16 24 24 Respiratory Depth Blood Pressure 124/84 Blood Pressure Mean 97 Blood Pressure Position Pulse Oximetry 98 98 98 Oxygen Delivery Method Sepsis Recent Fever Within 48 Hours Sepsis New/Unexplained Change in Mental Status Sepsis Action Taken by Nursing 12/28/21 09:40 12/28/21 09:50 Temperature Temperature Source Pulse Rate 61 63 Pulse Rate from SpO2 Sensor 62 65 Pulse Rhythm Respiratory Rate 13 28 H Respiratory Depth Blood Pressure Blood Pressure Mean Blood Pressure Position Pulse Oximetry 97 99 Oxygen Delivery Method Sepsis Recent Fever Within 48 Hours Sepsis New/Unexplained Change in Mental Status Sepsis Action Taken by Nursing Laboratory Data Result diagrams: 12/28/21 04:45 12/28/21 04:45 Lab Results 12/28/21 12/28/21 12/28/21 Range/Units 04:45 04:45 04:45 WBC 8.63 (4.8-10.8) K/uL RBC 5.04 (4.7-6.1) M/uL Hgb 14.7 (14.0-18.0) g/dL Hct 43.4 (42-52) % MCV 86.1 (80-100) fL MCH 29.2 (25-34) pg MCHC 33.9 (32-36) g/dL RDW Std Deviation 44.0 (36.4-46.3) fL RDW Coeff of Baldo 14.0 (11.5-14.5) % Plt Count 203 (130-400) K/uL MPV 11.4 H (7.4-10.4) fL Immature Gran % (Auto) 0.5 % Neut % (Auto) 69.4 % Lymph % (Auto) 21.0 % [place] % (Auto) 7.3 % Eos % (Auto) 1.5 % Baso % (Auto) 0.3 % Neut # (Auto) 5.99 (1.4-6.5) K/uL Lymph # (Auto) 1.81 (1.2-3.4) K/uL [place] # (Auto) 0.63 H (0.11-0.59) K/uL Eos # (Auto) 0.13 (0-0.5) K/uL Baso # (Auto) 0.03 (0-0.2) K/uL Immature Gran # (Auto) 0.04 H (0.00-0.02) K/uL Sodium 134 L (136-145) mmol/L Potassium 3.0 L (3.5-5.1) mmol/L Chloride 89 L (98-107) mmol/L Carbon Dioxide 31 (21-32) mmol/L Anion Gap 14 H (3-11) BUN 49 H (6-23) mg/dl Creatinine 1.81 H (0.6-1.4) mg/dl Est Cr Clr Drug Dosing 51.7 ml/min Est GFR ( Amer) 43.2 ml/min Est GFR (Non-Af Amer) 37.3 ml/min BUN/Creatinine Ratio 27.1 H (10-20) Glucose 281 H (70-99(Fasting)) mg/dl POC Glucose (70-99) mg/dl Calcium 10.3 H (8.5-10.1) mg/dl Magnesium 2.5 H (1.7-2.4) mg/dl Total Bilirubin 1.0 (0.2-1.0) mg/dl AST 20 (13-39) U/L ALT 18 (7-52) U/L Alkaline Phosphatase 142 H (34-104) U/L Troponin I High Sens 13.1 (0-20) pg/ml Total Protein 8.1 (6.0-8.3) gm/dl Albumin 4.2 (3.4-5.0) gm/dl Globulin 3.9 (2.5-4.0) gm/dl Albumin/Globulin Ratio 1.1 (0.9-2) TSH 0.321 (0.300-4.500) uIu/ml Urine Color Urine Appearance (Clear) Urine pH (4.5-7.5) Ur Specific [place] (1.000-1.030) Urine Protein (Negative) Urine Glucose (UA) (Negative) Urine Ketones (Negative) Urine Blood (Negative) Urine Nitrite (Negative) Urine Bilirubin (Negative) Urine Urobilinogen (Negative) Ur Leukocyte Esterase (Negative) SARS-CoV-2, RNA, NAAT (NEGATIVE) 12/28/21 12/28/21 12/28/21 Range/Units 05:09 05:45 07:09 WBC (4.8-10.8) K/uL RBC (4.7-6.1) M/uL Hgb (14.0-18.0) g/dL Hct (42-52) % MCV (80-100) fL MCH (25-34) pg MCHC (32-36) g/dL RDW Std Deviation (36.4-46.3) fL RDW Coeff of Baldo (11.5-14.5) % Plt Count (130-400) K/uL MPV (7.4-10.4) fL Immature Gran % (Auto) % Neut % (Auto) % Lymph % (Auto) % [place] % (Auto) % Eos % (Auto) % Baso % (Auto) % Neut # (Auto) (1.4-6.5) K/uL Lymph # (Auto) (1.2-3.4) K/uL [place] # (Auto) (0.11-0.59) K/uL Eos # (Auto) (0-0.5) K/uL Baso # (Auto) (0-0.2) K/uL Immature Gran # (Auto) (0.00-0.02) K/uL Sodium (136-145) mmol/L Potassium (3.5-5.1) mmol/L Chloride (98-107) mmol/L Carbon Dioxide (21-32) mmol/L Anion Gap (3-11) BUN (6-23) mg/dl Creatinine (0.6-1.4) mg/dl Est Cr Clr Drug Dosing ml/min Est GFR ( Amer) ml/min Est GFR (Non-Af Amer) ml/min BUN/Creatinine Ratio (10-20) Glucose (70-99(Fasting)) mg/dl POC Glucose 290 H (70-99) mg/dl Calcium (8.5-10.1) mg/dl Magnesium (1.7-2.4) mg/dl Total Bilirubin (0.2-1.0) mg/dl AST (13-39) U/L ALT (7-52) U/L Alkaline Phosphatase (34-104) U/L Troponin I High Sens (0-20) pg/ml Total Protein (6.0-8.3) gm/dl Albumin (3.4-5.0) gm/dl Globulin (2.5-4.0) gm/dl Albumin/Globulin Ratio (0.9-2) TSH (0.300-4.500) uIu/ml Urine Color Yellow Urine Appearance Clear (Clear) Urine pH 7.0 (4.5-7.5) Ur Specific [place] 1.011 (1.000-1.030) Urine Protein Negative (Negative) Urine Glucose (UA) 1+ H (Negative) Urine Ketones Negative (Negative) Urine Blood Negative (Negative) Urine Nitrite Negative (Negative) Urine Bilirubin Negative (Negative) Urine Urobilinogen Negative (Negative) Ur Leukocyte Esterase Negative (Negative) SARS-CoV-2, RNA, NAAT NEGATIVE (NEGATIVE) Administered Medications Allopurinol (Allopurinol 300 Mg Tab) 300 mg PO DAILY [facility] Stop: 01/27/22 12:48 Last Admin: 12/28/21 15:34 Dose: 300 mg Documented by: [id number] Apixaban (Apixaban 5 Mg Tablet) 5 mg PO BID OFE Stop: 01/27/22 15:59 Last Admin: 12/29/21 00:36 Dose: 5 mg Documented by: [id number] Admin: 12/28/21 17:12 Dose: 5 mg Documented by: [id number] Artificial Tears (Artificial Tears) 1 drops OP Q2HWA OFE Stop: 01/27/22 15:59 Last Admin: 12/29/21 00:26 Dose: Not Given Documented by: [id number] Admin: 12/28/21 21:33 Dose: 1 drops Documented by: [id number] Admin: 12/28/21 21:32 Dose: 1 drops Documented by: [id number] Admin: 12/28/21 21:03 Dose: 1 drops Documented by: [id number] Aspirin (Aspirin 81 Mg Ectab) 81 mg PO DAILY [facility] Stop: 01/27/22 12:48 Last Admin: 12/28/21 15:34 Dose: 81 mg Documented by: [id number] Atorvastatin Calcium (Atorvastatin 10 Mg Tab) 10 mg PO HS [facility] Stop: 01/27/22 20:59 Last Admin: 12/28/21 20:57 Dose: 10 mg Documented by: [id number] Bupropion HCl (Bupropion Xl 150 Mg Tabcr) 150 mg PO [facility] Stop: 01/27/22 14:59 Last Admin: 12/28/21 17:12 Dose: 150 mg Documented by: [id number] Digoxin (Digoxin 0.125 Mg Tab) 0.125 mg PO DAILY@1800 [facility] Stop: 01/27/22 17:59 Last Admin: 12/28/21 17:12 Dose: 0.125 mg Documented by: [id number] Gabapentin (Gabapentin 300 Mg Cap) 300 mg PO TID [facility] Stop: 01/27/22 13:59 Last Admin: 12/28/21 20:58 Dose: 300 mg Documented by: [id number] Admin: 12/28/21 15:34 Dose: 300 mg Documented by: [id number] Sodium Chloride (Nss 1000ml) 1,000 mls @ 80 mls/hr IV .[id number] [facility] Stop: 12/29/21 07:00 Last Admin: 12/28/21 19:45 Dose: 80 mls/hr Documented by: [id number] Insulin Aspart (Insulin Aspart Per Unit) 0 units SC ACHS [facility] Stop: 01/27/22 16:29 Last Admin: 12/28/21 21:34 Dose: 13 units Documented by: [id number] Cosigned by: [id number] Admin: 12/28/21 17:13 Dose: 18 units Documented by: [id number] Cosigned by: [id number] Insulin Aspart (Insulin Aspart Per Unit) 0 units SC 0000,0400 [facility] Stop: 12/29/21 04:01 Last Admin: 12/29/21 00:35 Dose: 5 units Documented by: [id number] Cosigned by: [id number] Lidocaine (Lidocaine 5% 1 Patch) 1 patch TD [facility]; Protocol Stop: 01/27/22 12:48 Last Admin: 12/28/21 15:33 Dose: 1 patch Documented by: [id number] Metoprolol Succinate (Metoprolol Succ 50mg Ext Rel Tab) 150 mg PO BID [facility] Stop: 01/27/22 15:59 Last Admin: 12/28/21 17:12 Dose: 150 mg Documented by: [id number] Miscellaneous (Remove Lidoderm Patch) 1 ea N/A DAILY@2100 [facility] Stop: 01/27/22 20:59 Last Admin: 12/28/21 20:57 Dose: 1 ea Documented by: [id number] Moxifloxacin HCl (Moxifloxacin Hcl 0.5% Op Soln 3 Ml Btl) 2 drops OP Q4H [facility]E Stop: 01/27/22 15:59 Last Admin: 12/29/21 00:36 Dose: 2 drops Documented by: [id number] Admin: 12/28/21 20:56 Dose: 2 drops Documented by: [id number] Admin: 12/28/21 17:13 Dose: 2 drops Documented by: [id number] Nystatin (Nystatin Powder 15gm Btl) 1 appln EXT BID [facility]E Stop: 01/27/22 20:59 Last Admin: 12/28/21 21:57 Dose: 1 appln Documented by: [id number] Polyethylene Glycol (Polyethylene (Miralax) 17 Gm Pack) 17 gm PO DAILY [facility] Stop: 01/27/22 12:48 Last Admin: 12/28/21 15:34 Dose: 17 gm Documented by: [id number] Potassium Chloride (Potassium Chloride Crtab 20 Meq Tabcr) 20 meq PO BID OFE Stop: 01/27/22 20:59 Last Admin: 12/28/21 21:04 Dose: 20 meq Documented by: [id number] Sennosides (Senna 8.6 Mg Tab) 8.6 mg PO BID OFE Stop: 01/27/22 20:59 Last Admin: 12/28/21 21:00 Dose: 8.6 mg Documented by: [id number] Discontinued Medications Bisacodyl (Bisacodyl 10 Mg Supp) 10 mg HI ONE ONE Stop: 12/28/21 12:50 Last Admin: 12/28/21 21:58 Dose: 10 mg Documented by: [id number] Sodium Chloride (Nss) 500 mls @ 999 mls/hr IV .Q31M ONE Stop: 12/28/21 07:00 Last Infusion: 12/28/21 15:32 Dose: 0 mls/hr Documented by: [id number] Admin: 12/28/21 07:24 Dose: 999 mls/hr Documented by: [id number] Sodium Chloride (Nss) 500 mls @ 125 mls/hr IV .Q4H OFE Stop: 01/27/22 07:14 Last Admin: 12/28/21 15:40 Dose: 125 mls/hr Documented by: [id number] Infusion: 12/28/21 15:32 Dose: 0 mls/hr Documented by: [id number] Admin: 12/28/21 07:24 Dose: 125 mls/hr Documented by: [id number] Insulin Glargine (Insulin Glargine Solostar 100 Units/Ml 3 Ml Pen) 80 units SC TODAY@1700 [facility] Stop: 12/28/21 17:01 Last Admin: 12/28/21 17:13 Dose: 80 units Documented by: [id number] Cosigned by: [id number] Insulin Glargine (Insulin Glargine Solostar 100 Units/Ml 3 Ml Pen) 25 units SC TODAY@2200 [facility] Stop: 12/28/21 22:01 Last Admin: 12/29/21 00:35 Dose: 25 units Documented by: [id number] Cosigned by: [id number] Potassium Chloride (Potassium Chloride Crtab 20 Meq Tabcr) 40 meq PO NOW STA Stop: 12/28/21 07:07 Last Admin: 12/28/21 07:23 Dose: 40 meq Documented by: [id number] Discharge Plan Visit Data Chief Complaint: Hyperglycemia ED Provider: Cristiana Ram Discharge Problem: Generalized weakness, Near syncope, Hyperglycemia due to type 2 diabetes mellitus, Hypokalemia Patient Disposition: Admitted As Inpatient Discharge Instructions Interventions: ED Discharge Assessment Last Done: 12/28/21 20:02 Discharge Problem: Hyperglycemia due to type 2 diabetes mellitus Qualifiers: Diabetes mellitus mcfp insulin use: with intermodal customer service use Qualified Code(s): E11.65 - Type 2 diabetes mellitus with hyperglycemia
[2021-12-28 05:35] LABS: Basophils # (auto) 0.03 K/uL (0-0.2); Basophils % (auto) 0.3 %; Eosinophils # (auto) 0.13 K/uL (0-0.5); Eosinophils % (auto) 1.5 %; Hematocrit (blood only) 43.4 % (42-52); Hemoglobin 14.7 g/dL (14.0-18.0); Immature Granulocytes # (auto) 0.04 K/uL (0.00-0.02); Immature Granulocytes % (auto) 0.5 %; Lymphocytes # (auto) 1.81 K/uL (1.2-3.4); Mean Corpuscular Hemoglobin 29.2 pg (25-34); Mean Corpuscular Hgb Conc 33.9 g/dL (32-36); Mean Corpuscular Volume 86.1 fL (80-100); Mean Platelet Volume 11.4 fL (7.4-10.4); Monocytes # (auto) 0.63 K/uL (0.11-0.59); Monocytes % (auto) 7.3 %; Neutrophils # (auto) 5.99 K/uL (1.4-6.5); Neutrophils % (auto) 69.4 %; Platelet Count 203 K/uL (130-400); Red Blood Count 5.04 M/uL (4.7-6.1); White Blood Count 8.63 K/uL (4.8-10.8)
[2021-12-28 05:49] LABS: Albumin Globulin Ratio 1.1 (0.9-2); Albumin Level 4.2 gm/dl (3.4-5.0); BUN Creatinine Ratio 27.1 (10-20); Calcium 10.3 mg/dl (8.5-10.1); Creatinine Clr Calc Pharmacy 51.7 ml/min; Est GFR (African American) 43.2 ml/min; Est GFR (Non-African American) 37.3 ml/min; Globulin 3.9 gm/dl (2.5-4.0); Magnesium 2.5 mg/dl (1.7-2.4); Total Protein 8.1 gm/dl (6.0-8.3)
[2021-12-28 05:50] LABS: Troponin I High Sensitivity 13.1 pg/ml (0-20)
[2021-12-28 06:22] LABS: Appearance Urine Clear (Clear); Bilirubin Urine Negative (Negative); Blood Urine Negative (Negative); Color Urine Yellow; Glucose Urine UA 1+ (Negative); Ketones Urine Negative (Negative); Leukocyte Esterase Urine Negative (Negative); Nitrite Urine Negative (Negative); Protein Urine Negative (Negative); Specific Gravity Urine 1.011 (1.000-1.030); Urobilinogen Urine Negative (Negative)
[2021-12-28] MEDS ORDERED: SODIUM CHLORIDE 0.9% 500 ML IV ONE (06:30)
--- NOTE | 2021-12-28 06:42 | XRay Report ---
XR chest 1V portable CLINICAL HISTORY: weakness. Evaluate cardiopulmonary status COMPARISON STUDY: 11/13/2021 TECHNIQUE: 1 view of the chest FINDINGS: Single frontal view of the chest demonstrates the heart size to again be enlarged with permanent card iac pacer in place. The lungs are clear of alveolar opacities. There is no evidence for pleural effus ion. There is no evidence for vascular congestion. There is no acute osseous pathology. IMPRESSION: 1. No acute cardiopulmonary disease. ACT 112: Negative or not required by law. Electronically signed by: Nir Patrick M.D. 12/28/2021 6:40 AM
[2021-12-28] MEDS ORDERED: POTASSIUM CHLORIDE CRTAB 20 MEQ TABCR PO STA (07:06)
[2021-12-28] MEDS: SODIUM CHLORIDE 0.9% 500 ML IV SCH ×2 (07:24→15:40)
--- NOTE | 2021-12-28 08:42 | History & Physical Report ---
Date of Service December 28, 2021 Assessment & Plan (1) Generalized weakness: (2) Near syncope: (3) CKD (chronic kidney disease): (4) Chronic diastolic CHF (congestive heart failure): (5) SALAS (obstructive sleep apnea): (6) History of pulmonary embolism: (7) Hypertension: (8) Paroxysmal atrial fibrillation: (9) Diabetes mellitus, type 2: (10) Morbid obesity: (11) Ambulatory dysfunction: Plan: Generalized weakness with near syncope/?syncope- Will check orthostatic vitals, monitor on tele. Pacemaker interrogation. check echo. PT/OT eval. No evidence of infection in work up- afebrile, WBC normal, Ca mildly elevated. T2DM with hyperglycemia and CKD3a- A1c 11. On lantus, SSI- glycemic pharmacist managing HTN- BP stable, on toprol ALMA ROSA on CKD3a- Cr was down to 1.2 on 11/26 but now up to 1.8. Looks dry on exam. Will given only gentle hydration with his CHF while holding his lasix/aldactone. monitor volume status closely- resume diuretics when indicated. Chronic diastolic CHF- Echo today with EF 55-60%. Dry on exam. Plan as above. Hypokalemia- repleted. Recheck in am Paroxysmal atrial fibrillation- on eliquis. on toprol bid, digoxin- dig level not elevated. H/o PE- on eliquis H/o tachybrady syndrome s/p PPM- interrogate PPM Morbid obesity BMI 42.8 SALAS- states he was on CPAP but [facility] as he was not using much as he should. Agreeable to using CPAP here- ordered. Hypothyroid- on Synthroid GERD- on PPI Overactive bladder- on oxybutynin- will hold Depression/h/o PTSD- on buspar H/o gout- on allopurinol Conjunctivitis- on eye drops- will continue Constipation- Last BM last week per patient. Will start on bowel regimen. DVT ppx- on eliquis Dispo- Medsurg tele Full code History of Present Illness Chief Complaint: weakness, dizziness Primary Care Provider: [facility] 71 year old male with h/o HTN, DM, CKD, chronic diastolic CHF, cardiomyopathy, hypothyroidism, h/o PE, morbid obesity, SALAS not on CPAP, CAD, s/p PPM who presented to the ED from [facility] for evaluation of syncopal episode and falls. History taken from patient and chart review. He is AAOx4. States that he was walking to the bathroom with his walker when he passed out- he does not know how long he passed out. States he feels dizzy and weak in general. Denies any fever, chills, chest pain, shortness of breath, nausea, vomiting. No seizure like activities. States generalized weakness but no focal neurologic symptoms- no numbness, weakness, tingling. No dysarthria, dysphasia, diplopia. States his eyes are infected and he has been on eye drops- has blurry vision from the same. Allergies Allergy/AdvReac Type Severity Reaction Status Date / Time No Known Allergies Allergy Verified 12/28/21 06:33 Home Medications Medication Instructions Recorded Confirmed Type digoxin 125 mcg (0.125 mg) tablet 0.125 mg PO DAILY@1800 #0 07/13/16 12/28/21 History aspirin 81 mg tablet,delayed 81 mg PO DAILY 05/11/18 12/28/21 History release (Adult Low Dose Aspirin) duloxetine 60 mg capsule,delayed 60 mg PO DAILY 08/31/18 12/28/21 History release allopurinol 300 mg tablet 300 mg PO DAILY 05/25/19 12/28/21 History omeprazole 20 mg capsule,delayed 20 mg PO QAM 05/25/19 12/28/21 History release potassium chloride 20 mEq 20 meq PO BID 07/12/19 12/28/21 History tablet,extended release(part/cryst) (Klor-Con M) albuterol sulfate 90 mcg/actuation 2 puffs INH Q4H PRN gm 12/14/19 12/28/21 History aerosol inhaler atorvastatin 20 mg tablet 10 mg PO HS 12/14/19 12/28/21 History meclizine 12.5 mg tablet 12.5 mg PO TID PRN 12/14/19 12/28/21 History bupropion HCl 150 mg 24 hr tablet, 150 mg PO QAM 02/13/20 12/28/21 History extended release oxybutynin chloride 10 mg 10 mg PO DAILY 03/29/20 12/28/21 History tablet,extended release 24 hr (Ditropan XL) multivitamin with minerals 1 tab PO DAILY 06/19/20 12/28/21 History (Multiple Vitamin-Minerals) nitroglycerin 0.4 mg sublingual 0.4 mg SUBLINGUAL UD PRN 06/19/20 12/28/21 History tablet furosemide 80 mg tablet 80 mg PO BID 11/01/20 12/28/21 History spironolactone 25 mg tablet 25 mg PO DAILY 11/01/20 12/28/21 History (Aldactone) nystatin 100,000 unit/gram topical 1 applic TOPICAL BID 03/04/21 12/28/21 History powder apixaban 5 mg tablet 5 mg PO BID 07/11/21 12/28/21 History gabapentin 300 mg capsule 300 mg PO Q8H 07/27/21 12/28/21 History blood sugar diagnostic (Contour #50 ea 07/31/21 11/13/21 Rx Next Test Strips) blood-glucose meter (Contour Next #1 ea 07/31/21 11/13/21 Rx Glucose Meter) lancets (Microlet Lancet) #100 ea 07/31/21 11/13/21 Rx acetaminophen 325 mg tablet 650 mg PO Q4H PRN 08/10/21 12/28/21 History insulin glargine 100 unit/mL (3 35 unit SC HS 08/10/21 12/28/21 History mL) subcutaneous pen (Lantus Solostar U-100 Insulin) insulin glargine 100 unit/mL (3 85 unit SC DAILY 08/10/21 12/28/21 History mL) subcutaneous pen (Lantus Solostar U-100 Insulin) insulin regular human 100 unit/mL 10 unit SUBCUT TIDM 08/10/21 12/28/21 History (3 mL) subcutaneous pen (Novolin R Flexpen) cholecalciferol (vitamin D3) 25 50 mcg PO DAILY 11/01/21 12/28/21 History mcg (1,000 unit) tablet (Vitamin D3) levothyroxine 125 mcg tablet 250 mcg PO DAILY@0600 11/01/21 12/28/21 History polyvinyl alcohol-povidone (PF) 1 drp OPB Q2H 11/01/21 12/28/21 History 1.4 %-0.6 % eye drops in a dropperette (Refresh Classic (PF)) magnesium oxide 400 mg PO DAILY 11/13/21 12/28/21 History sennosides 8.6 mg capsule 8.6 mg PO BID 11/13/21 12/28/21 History Vancomycin Fortified Oph Drops drp OPB QID 12/28/21 History epinephrine 0.3 mg/0.3 mL 0.3 mg IM ONCE PRN 12/28/21 12/28/21 History injection syringe metoprolol succinate 50 mg 150 mg PO BID 12/28/21 12/28/21 History tablet,extended release 24 hr moxifloxacin 0.5 % viscous eye 1 drp OPB Q4H 12/28/21 12/28/21 History drops Past Med/Surg History Medical History Abnormal chest x-ray 06/18/20 right hilar opacity, f/u recommended Anticoagulant long-term use Arthritis Atrial fibrillation paroxysmal Atrial flutter Bifascicular block CAD (coronary artery disease) Cardiac pacemaker in situ Cardiomyopathy Chronic anticoagulation Chronic diastolic CHF (congestive heart failure) Chronic venous insufficiency CKD (chronic kidney disease) stage 3, GFR 30-59 ml/min Claustrophobia Closed fracture of thyroid cartilage COPD, moderate Depression Diabetes mellitus, type 2 insulin pump Fatty liver Gout Hyperlipidemia Hypertension Hypothyroidism Iatrogenic pulmonary embolism Interstitial lung disease Morbid obesity MRSA infection Nephrolithiasis Nocturnal hypoxemia SALAS (obstructive sleep apnea) Osteoarthritis Paroxysmal atrial fibrillation Prolonged QT interval Pulmonary embolism B/L- 5+ years ago Sarcoidosis possible- evaluated by pulmonary; felt no active sarcoidosis and would not merit steroid therapy given weight/diabetic state. 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 "prior EF of 25% while in aflutter, subsequently normal in NSR" Surgical History H/O cardiac radiofrequency ablation H/O prior ablation treatment History of arthroscopic knee surgery History of bronchoscopy History of cataract surgery local anesthesia only per pt History of cholecystectomy History of extraction of renal calculus History of lung surgery thoracoscopy, right VATS, wedge resection History of umbilical hernia repair Hx of carpal tunnel repair Pacemaker Implanted 02/2017 secondary to Sinus node dysfunction/tachy sherry syndrome/3rd degree AVB Medtr[employer] Pacer check 12/24/17 Status post incision and drainage Family History Mother Cancer Social History Smoking Status: Never smoker Second Hand Exposure: No; Hx Alcohol Use: No Hx Substance Use: No Preferred Language: Greenlandic Communication Ability: Effective Visual Impairment: Limited Hearing Ability: Normal Sporting Goods Salesperson Required: No Beliefs That Will Affect Care: None marital status: Current Living Situation: Residential Current Living Situation Comment: [facility] current occupational status: retired How many Children do You have: 2 How many Children do You have Comment: children are not involved with care much per pt Feels Safe at Home: Yes Diet Comment: FLUID RESTRICTION during the past year weight has: other Assistive Devices: Walker Review of Systems Review of Systems: All systems reviewed & are unremarkable except as noted in Subjective Physical Exam Physical Exam: General: Morbidly obese male, lying in bed, not in distress, on NC HEENT: Unable to open eyes fully, CRISTIAN, some greenish discharge from left eye, Dry oral mucosa Chest: Fair breath sounds bilaterally, no wheezes CVS: Irregularly irregular Abdomen: Soft, non tender, mild distension, normal bowel sounds Neuro: Awake, alert, oriented, conversing well, non focal Extremities: No cyanosis, clubbing or edema Results & Data Results & Data ([facility]) Vital Signs (Past 12 Hours) Vital Signs Temp Pulse Resp BP Pulse Ox 12/28/21 07:10 65 26 H 97 12/28/21 07:00 67 18 119/78 96 12/28/21 06:50 63 21 95 12/28/21 06:40 61 25 H 93 12/28/21 06:30 65 20 136/79 92 12/28/21 06:20 66 21 94 12/28/21 06:10 71 18 96 12/28/21 06:00 64 21 128/74 98 12/28/21 05:50 66 18 97 12/28/21 05:40 66 20 98 12/28/21 05:30 72 22 128/97 92 12/28/21 05:28 68 14 97 12/28/21 05:20 62 21 95 12/28/21 05:11 36.7 C 73 14 131/84 97 12/28/21 05:10 69 18 92 12/28/21 05:05 78 19 95 Laboratory Results Short CBC 12/28/21 Range/Units 04:45 WBC 8.63 (4.8-10.8) K/uL Hgb 14.7 (14.0-18.0) g/dL Hct 43.4 (42-52) % Plt Count 203 (130-400) K/uL BMP 12/28/21 04:45 Sodium 134 L Potassium 3.0 L Chloride 89 L Carbon Dioxide 31 BUN 49 H Creatinine 1.81 H Glucose 281 H Calcium 10.3 H Liver Function 12/28/21 Range/Units 04:45 Total Bilirubin 1.0 (0.2-1.0) mg/dl AST 20 (13-39) U/L ALT 18 (7-52) U/L Alkaline Phosphatase 142 H (34-104) U/L Albumin 4.2 (3.4-5.0) gm/dl Urine 12/28/21 Range/Units 05:45 Urine Color Yellow Urine Appearance Clear (Clear) Urine pH 7.0 (4.5-7.5) Ur Specific [place] 1.011 (1.000-1.030) Urine Protein Negative (Negative) Urine Glucose (UA) 1+ H (Negative) Diagnostic Findings Chest X-Ray 12/28/21 05:23 XR chest 1V portable CLINICAL HISTORY: weakness. Evaluate cardiopulmonary status COMPARISON STUDY: 11/13/2021 TECHNIQUE: 1 view of the chest FINDINGS: Single frontal view of the chest demonstrates the heart size to again be enlarged with permanent cardiac pacer in place. The lungs are clear of alveolar opacities. There is no evidence for pleural effusion. There is no evidence for vascular congestion. There is no acute osseous pathology. IMPRESSION: 1. No acute cardiopulmonary disease. ACT 112: Negative or not required by law. Electronically signed by: Nir Patrick M.D. 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
--- NOTE | 2021-12-28 10:39 | Electrocardiogram Report ---
Test Reason : Blood Pressure : / mmHG Vent. Rate : 063 BPM Atrial Rate : 326 BPM P-R Int : 000 ms QRS Dur : 174 ms QT Int : 490 ms P-R-T Axes : 000 -78 023 degrees QTc Int : 501 ms Atrial fibrillation with frequent ventricular-paced complexes Ventricular-paced rhythm Intrinsic : RBBB with LAFB Abnormal ECG When compared with ECG of 25-DEC-2021 13:34, Vent. rate has decreased BY 2 BPM Confirmed by Thom Duran ([id number]) on 12/28/2021 10:39:15 AM Referred By: REFERRED SELF Confirmed By:Thom Duran
[2021-12-28] MEDS ORDERED: GLUCOSE 10 TABS/TUBE PO PRN (12:49)
[2021-12-28] MEDS ORDERED: ALBUTEROL HFA 8 GM INHALER INH PRN (12:49)
[2021-12-28] MEDS ORDERED: DEXTROSE 50% 50 ML SYRINGE IV PRN (12:49)
[2021-12-28] MEDS ORDERED: bisacodyL 10 MG SUPP PR ONE (12:49)
[2021-12-28] MEDS ORDERED: GLUCOSE 40% GEL 15 GM TUBE PO PRN (12:49)
[2021-12-28] MEDS ORDERED: GLUCAGON FOR INJ 1 MG VIAL SQ PRN (12:49)
[2021-12-28] MEDS ORDERED: CARBOHYDRATES FOR HYPOGLYCEMIA PO PRN (12:49)
--- NOTE | 2021-12-28 14:43 | Cardiology Consultation ---
Date of Consultation December 28, 2021 Assessment & Plan (1) Weakness: (2) Near syncope: (3) Hypokalemia: (4) Hypercapnia: (5) Dehydration: (6) Recurrent falls: (7) CKD (chronic kidney disease): (8) Micturition syncope: (9) Ambulatory dysfunction: (10) Chronic diastolic CHF (congestive heart failure): (11) SALAS (obstructive sleep apnea): (12) History of pulmonary embolism: I do not see any significant cardiac component to his presentation. 2D echocardiogram is unchanged. Most recent outpatient device check showed underlying atrial fibrillation/flutter. We will interrogate his device while he was admitted. No further cardiac testing or intervention necessary at this time History of Present Illness Reason for Consultation: syncope Requesting Physician: Dr. Leroy Attending Physician: Sid Leroy MD History of Present Illness Patient is a very pleasant yet medically complex 71-year-old gentleman well- known to our cardiology practice who presented to [facility] on 12/28/2021 From [facility] for reports of weakness, dizziness and unable to bear weight. Problem List: 1. Paroxysmal atrial fibrillation (AF) and atrial flutter (AFL) 1. First diagnosed in 2011 2. Failed to tolerate dronedarone 3. Amiodarone prescribed in 2012, discontinued in December 2013 by Pulmonary Medicine secondary to concerns for pulmonary toxicity. 4. Recurrent AFL -2013, converting to NSR with the addition of dofetilide. 5. Recurrent AF, -2013. 6. Status post May 10, [address] Flynn at [facility]. 1. Successful radiofrequency ablation of the cavtricuspid isthmus with creation of a bidirectional isthmus conduction block under conscious sedation. 2. He did not undergo a PVI ablation because of mild hypoxemia, volume overload on presentation. 7. History of tachycardia mediated cardiomyopathy (TMC) with LVEF previously 25% 8. Presentation to [facility] in September 2016 following a syncope episode, observed Tachy-Jared Syndrome status post permanent pacemaker implantation with Tikosyn discontinued, metoprolol increased. 2. Patient previously treated with chronic Coumadin anticoagulation, transition to Eliquis in March 2021 3. Diastolic dysfunction. 4. Hypertension 5. Dyslipidemia. 6. Type 2 diabetes mellitus 7. Chronic kidney disease 8. Obstructive sleep apnea 9. History of bilateral pulmonary embolus 10. Fatty infiltration of the liver. 11. GERD 12. Hypothyroidism 13. Interstitial lung disease 14. Gouty arthropathy 15. Psoriasis 16. Depression Allergies Allergy/AdvReac Type Severity Reaction Status Date / Time No Known Allergies Allergy Verified 12/28/21 06:33 Home Medications Medication Instructions Recorded Confirmed Type digoxin 125 mcg (0.125 mg) tablet 0.125 mg PO DAILY@1800 #0 07/13/16 12/28/21 History aspirin 81 mg tablet,delayed 81 mg PO DAILY 05/11/18 12/28/21 History release (Adult Low Dose Aspirin) duloxetine 60 mg capsule,delayed 60 mg PO DAILY 08/31/18 12/28/21 History release allopurinol 300 mg tablet 300 mg PO DAILY 05/25/19 12/28/21 History omeprazole 20 mg capsule,delayed 20 mg PO QAM 05/25/19 12/28/21 History release potassium chloride 20 mEq 20 meq PO BID 07/12/19 12/28/21 History tablet,extended release(part/cryst) (Klor-Con M) albuterol sulfate 90 mcg/actuation 2 puffs INH Q4H PRN gm 12/14/19 12/28/21 History aerosol inhaler atorvastatin 20 mg tablet 10 mg PO HS 12/14/19 12/28/21 History meclizine 12.5 mg tablet 12.5 mg PO TID PRN 12/14/19 12/28/21 History bupropion HCl 150 mg 24 hr tablet, 150 mg PO QAM 02/13/20 12/28/21 History extended release oxybutynin chloride 10 mg 10 mg PO DAILY 03/29/20 12/28/21 History tablet,extended release 24 hr (Ditropan XL) multivitamin with minerals 1 tab PO DAILY 06/19/20 12/28/21 History (Multiple Vitamin-Minerals) nitroglycerin 0.4 mg sublingual 0.4 mg SUBLINGUAL UD PRN 06/19/20 12/28/21 History tablet furosemide 80 mg tablet 80 mg PO BID 11/01/20 12/28/21 History spironolactone 25 mg tablet 25 mg PO DAILY 11/01/20 12/28/21 History (Aldactone) nystatin 100,000 unit/gram topical 1 applic TOPICAL BID 03/04/21 12/28/21 History powder apixaban 5 mg tablet 5 mg PO BID 07/11/21 12/28/21 History gabapentin 300 mg capsule 300 mg PO Q8H 07/27/21 12/28/21 History blood sugar diagnostic (Contour #50 ea 07/31/21 11/13/21 Rx Next Test Strips) blood-glucose meter (Contour Next #1 ea 07/31/21 11/13/21 Rx Glucose Meter) lancets (Microlet Lancet) #100 ea 07/31/21 11/13/21 Rx acetaminophen 325 mg tablet 650 mg PO Q4H PRN 08/10/21 12/28/21 History insulin glargine 100 unit/mL (3 35 unit SC HS 08/10/21 12/28/21 History mL) subcutaneous pen (Lantus Solostar U-100 Insulin) insulin glargine 100 unit/mL (3 85 unit SC DAILY 08/10/21 12/28/21 History mL) subcutaneous pen (Lantus Solostar U-100 Insulin) insulin regular human 100 unit/mL 10 unit SUBCUT TIDM 08/10/21 12/28/21 History (3 mL) subcutaneous pen (Novolin R Flexpen) cholecalciferol (vitamin D3) 25 50 mcg PO DAILY 11/01/21 12/28/21 History mcg (1,000 unit) tablet (Vitamin D3) levothyroxine 125 mcg tablet 250 mcg PO DAILY@0600 11/01/21 12/28/21 History polyvinyl alcohol-povidone (PF) 1 drp OPB Q2H 11/01/21 12/28/21 History 1.4 %-0.6 % eye drops in a dropperette (Refresh Classic (PF)) magnesium oxide 400 mg PO DAILY 11/13/21 12/28/21 History sennosides 8.6 mg capsule 8.6 mg PO BID 11/13/21 12/28/21 History Vancomycin Fortified Oph Drops drp OPB QID 12/28/21 History epinephrine 0.3 mg/0.3 mL 0.3 mg IM ONCE PRN 12/28/21 12/28/21 History injection syringe metoprolol succinate 50 mg 150 mg PO BID 12/28/21 12/28/21 History tablet,extended release 24 hr moxifloxacin 0.5 % viscous eye 1 drp OPB Q4H 12/28/21 12/28/21 History drops Patient History Medical History Abnormal chest x-ray 06/18/20 right hilar opacity, f/u recommended Anticoagulant long-term use Arthritis Atrial fibrillation paroxysmal Atrial flutter Bifascicular block CAD (coronary artery disease) Cardiac pacemaker in situ Cardiomyopathy Chronic anticoagulation Chronic diastolic CHF (congestive heart failure) Chronic venous insufficiency CKD (chronic kidney disease) stage 3, GFR 30-59 ml/min Claustrophobia Closed fracture of thyroid cartilage COPD, moderate Depression Diabetes mellitus, type 2 insulin pump Fatty liver Gout Hyperlipidemia Hypertension Hypothyroidism Iatrogenic pulmonary embolism Interstitial lung disease Morbid obesity MRSA infection Nephrolithiasis Nocturnal hypoxemia SALAS (obstructive sleep apnea) Osteoarthritis Paroxysmal atrial fibrillation Prolonged QT interval Pulmonary embolism B/L- 5+ years ago Sarcoidosis possible- evaluated by pulmonary; felt no active sarcoidosis and would not merit steroid therapy given weight/diabetic state. 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 "prior EF of 25% while in aflutter, subsequently normal in NSR" Surgical History H/O cardiac radiofrequency ablation H/O prior ablation treatment History of arthroscopic knee surgery History of bronchoscopy History of cataract surgery local anesthesia only per pt History of cholecystectomy History of extraction of renal calculus History of lung surgery thoracoscopy, right VATS, wedge resection History of umbilical hernia repair Hx of carpal tunnel repair Pacemaker Implanted 02/2017 secondary to Sinus node dysfunction/tachy jared syndrome/3rd degree AVB [employer]tr[employer] Pacer check 12/24/17 Status post incision and drainage Family History Mother Cancer Social History Smoking Status: Never smoker Second Hand Exposure: No; Hx Alcohol Use: No Hx Substance Use: No Preferred Language: Divehi Communication Ability: Effective Visual Impairment: Limited Hearing Ability: Normal Rating Examiner Required: No Beliefs That Will Affect Care: None marital status: Current Living Situation: [facility] Current Living Situation Comment: [facility] current occupational status: retired How many Children do You have: 2 How many Children do You have Comment: children are not involved with care much per pt Feels Safe at Home: Yes Diet Comment: FLUID RESTRICTION during the past year weight has: other Assistive Devices: Walker Review of Systems Review of Systems: All systems reviewed & are unremarkable except as noted in HPI & below Physical Exam Physical Exam: General: Awake, alert and oriented x 3. No acute distress. HEENT: Normocephalic, atraumatic. Pupils equal, round and reactive to light and accommodation. Extraocular muscles are intact. Anicteric sclera. Moist mucous membranes. Neck: No JVD. No bruit. Cardiovascular: irregularly irregular, unable to appreciate murmur, rub or gallop. Pulmonary: Clear to auscultation bilaterally. No rales, rhonchi, or wheezing. Abdomen: Bowel sounds x 4, soft. No rebound, guarding or tenderness. No organomegaly. Extremities: No clubbing, cyanosis or edema. +2 pedal pulses bilaterally. Skin: Warm and dry. Results & Data ([facility]) Vital Signs (Past 12 Hours) Vital Signs Temp Pulse Resp BP Pulse Ox 12/28/21 14:20 61 28 H 98 12/28/21 14:10 69 19 98 12/28/21 14:00 25 H 110/68 98 12/28/21 13:50 20 97 12/28/21 13:40 22 98 12/28/21 13:30 24 132/77 99 12/28/21 13:20 69 22 96 12/28/21 13:10 75 19 98 12/28/21 13:00 66 25 H 98/66 L 99 12/28/21 12:50 67 16 100 12/28/21 12:40 70 18 100 12/28/21 12:37 76 23 97/57 L 12/28/21 12:30 66 16 93 12/28/21 12:20 67 20 98 12/28/21 12:10 75 21 98 12/28/21 12:00 72 21 98 12/28/21 11:50 64 18 99 12/28/21 11:40 69 15 99 12/28/21 11:31 71 19 129/86 97 12/28/21 11:30 70 24 71 L 12/28/21 11:20 65 32 H 98 12/28/21 11:10 68 18 97 12/28/21 11:01 71 24 157/84 H 93 06/18/22 11:00 70 22 98 12/28/21 10:50 67 25 H 98 12/28/21 10:40 65 22 98 12/28/21 10:30 63 23 123/73 97 12/28/21 10:20 66 21 97 12/28/21 10:10 63 24 98 12/28/21 10:00 71 18 115/66 97 12/28/21 09:50 63 28 H 99 12/28/21 09:40 61 13 97 12/28/21 09:30 64 24 124/84 98 12/28/21 09:20 67 24 98 12/28/21 09:10 65 16 98 12/28/21 09:02 63 16 91/75 L 95 12/28/21 09:00 70 18 98 12/28/21 08:50 68 24 98 12/28/21 08:40 66 24 100 12/28/21 08:30 63 25 H 123/72 99 12/28/21 08:20 68 17 100 12/28/21 08:10 68 24 98 12/28/21 08:00 66 20 122/75 99 12/28/21 07:50 67 24 100 12/28/21 07:40 66 21 100 12/28/21 07:30 135/80 12/28/21 07:10 65 26 H 97 12/28/21 07:00 67 18 119/78 96 12/28/21 06:50 63 21 95 12/28/21 06:40 61 25 H 93 12/28/21 06:30 65 20 136/79 92 12/28/21 06:20 66 21 94 12/28/21 06:10 71 18 96 12/28/21 06:00 64 21 128/74 98 12/28/21 05:50 66 18 97 12/28/21 05:40 66 20 98 12/28/21 05:30 72 22 128/97 92 12/28/21 05:28 68 14 97 12/28/21 05:20 62 21 95 12/28/21 05:11 36.7 C 73 14 131/84 97 12/28/21 05:10 69 18 92 12/28/21 05:05 78 19 95 (1) CKD (chronic kidney disease) Chronic kidney disease stage: unspecified stage Qualified Code(s): N18.9 - Chronic kidney disease, unspecified
[2021-12-28] MEDS: LIDOCAINE 5% 1 PATCH TD SCH (15:33)
[2021-12-28] MEDS: allopurinoL 300 MG TAB PO SCH (15:34)
[2021-12-28] MEDS: ASPIRIN 81 MG ECTAB PO SCH (15:34)
[2021-12-28] MEDS: POLYETHYLENE (MIRALAX) 17 GM PACK PO SCH (15:34)
[2021-12-28] MEDS: GABAPENTIN 300 MG CAP PO SCH ×2 (15:34→20:58)
[2021-12-28] MEDS ORDERED: PHARMACY GLYCEMIC MGMT CONSULT PRN ×2 (16:23→17:29)
[2021-12-28] MEDS ORDERED: INSULIN GLARGINE SOLOSTAR 100 UNITS/ML 3 ML PEN SC SCH ×3 (17:00→22:00)
[2021-12-28] MEDS: DIGOXIN 0.125 MG TAB PO SCH (17:12)
[2021-12-28] MEDS: buPROPion XL 150 MG TABCR PO SCH (17:12)
[2021-12-28] MEDS: METOPROLOL SUCC 50MG EXT REL TAB PO SCH (17:12)
[2021-12-28] MEDS: APIXABAN 5 MG TABLET PO SCH (17:12)
[2021-12-28] MEDS: INSULIN ASPART PER UNIT SC SCH ×2 (17:13→21:34)
[2021-12-28] MEDS: MOXIFLOXACIN HCL 0.5% OP SOLN 3 ML BTL OP SCH ×2 (17:13→20:56)
[2021-12-28] MEDS: SODIUM CHLORIDE 0.9% 1000ML 1,000 ML IV SCH (19:45)
[2021-12-28] MEDS: ATORVASTATIN 10 MG TAB PO SCH (20:57)
[2021-12-28] MEDS: SENNA 8.6 MG TAB PO SCH (21:00)
[2021-12-28] MEDS: ARTIFICIAL TEARS OP SCH ×3 (21:03→21:33)
[2021-12-28] MEDS: POTASSIUM CHLORIDE CRTAB 20 MEQ TABCR PO SCH (21:04)
[2021-12-28] MEDS: NYSTATIN POWDER 15GM BTL EXT SCH (21:57)
[2021-12-29] MEDS: ARTIFICIAL TEARS OP SCH ×10 (00:26→22:56)
[2021-12-29] MEDS: INSULIN ASPART PER UNIT SC SCH ×6 (00:35→20:18)
[2021-12-29] MEDS: APIXABAN 5 MG TABLET PO SCH ×3 (00:36→20:51)
[2021-12-29] MEDS: MOXIFLOXACIN HCL 0.5% OP SOLN 3 ML BTL OP SCH ×4 (00:36→12:59)
[2021-12-29] MEDS: SODIUM CHLORIDE 0.9% 1000ML 1,000 ML IV SCH (04:50)
[2021-12-29] MEDS: LEVOTHYROXINE SODIUM 125 MCG TABLET PO SCH (05:53)
[2021-12-29 06:30] LABS: Hemoglobin 13.7 g/dL (14.0-18.0); Mean Corpuscular Hemoglobin 27.8 pg (25-34); Mean Corpuscular Hgb Conc 31.9 g/dL (32-36); Mean Corpuscular Volume 87.2 fL (80-100); Mean Platelet Volume 11.2 fL (7.4-10.4); Platelet Count 194 K/uL (130-400); RDW Coefficient of Variation 14.5 % (11.5-14.5); Red Blood Count 4.93 M/uL (4.7-6.1); White Blood Count 9.58 K/uL (4.8-10.8)
[2021-12-29 06:52] LABS: BUN Creatinine Ratio 34.3 (10-20); Calcium 9.5 mg/dl (8.5-10.1); Est GFR (African American) 60.6 ml/min; Est GFR (Non-African American) 52.3 ml/min; Magnesium 2.4 mg/dl (1.7-2.4); Phosphorus 3.5 mg/dl (2.5-4.9); Potassium 3.1 mmol/L (3.5-5.1)
[2021-12-29] MEDS ORDERED: POTASSIUM CHLORIDE CRTAB 20 MEQ TABCR PO STA (08:42)
[2021-12-29] MEDS ORDERED: INSULIN GLARGINE SOLOSTAR 100 UNITS/ML 3 ML PEN SC SCH ×2 (09:00→21:00)
[2021-12-29] MEDS ORDERED: INSULIN GLARGINE SOLOSTAR 100 UNITS/ML 3 ML PEN SC ONE (09:00)
[2021-12-29] MEDS: DULoxetine HCL 60 MG CAP PO SCH (09:30)
[2021-12-29] MEDS: CHOLECALCIFEROL 1,000 UNITS 25 MCG TAB PO SCH (09:30)
[2021-12-29] MEDS: buPROPion XL 150 MG TABCR PO SCH (09:31)
[2021-12-29] MEDS: METOPROLOL SUCC 50MG EXT REL TAB PO SCH ×2 (09:31→20:55)
[2021-12-29] MEDS: MAGNESIUM OXIDE 400 MG TAB PO SCH (09:31)
[2021-12-29] MEDS: ASPIRIN 81 MG ECTAB PO SCH (09:32)
[2021-12-29] MEDS: allopurinoL 300 MG TAB PO SCH (09:32)
[2021-12-29] MEDS: GABAPENTIN 300 MG CAP PO SCH ×3 (09:32→20:51)
[2021-12-29] MEDS: LIDOCAINE 5% 1 PATCH TD SCH (09:33)
[2021-12-29] MEDS: NYSTATIN POWDER 15GM BTL EXT SCH ×2 (09:36→20:20)
[2021-12-29] MEDS: POLYETHYLENE (MIRALAX) 17 GM PACK PO SCH ×2 (09:36→13:18)
[2021-12-29] MEDS: SENNA 8.6 MG TAB PO SCH ×2 (09:36→20:20)
[2021-12-29] MEDS: POTASSIUM CHLORIDE CRTAB 20 MEQ TABCR PO SCH ×2 (09:54→20:56)
[2021-12-29] MEDS: ACETAMINOPHEN 325 MG TAB PO PRN ×2 (10:09→18:04)
[2021-12-29] MEDS: PANTOprazole 40 MG TAB PO SCH (11:15)
[2021-12-29] MEDS ORDERED: SODIUM CHLORIDE 0.9% 500 ML IV SCH (13:30)
--- NOTE | 2021-12-29 13:49 | Pharmacy Report ---
Pharmacy Glycemic Short Note 2 - Date of Service December 29, 2021 - Glycemic Short BSG Results (Last 24 hours): 12/28/21 12/28/21 12/28/21 14:02 16:40 20:10 Glucose POC Glucose 321 H* 331 H* 321 H* 12/29/21 12/29/21 12/29/21 00:11 04:33 05:55 Glucose 162 H POC Glucose 231 H 151 H 12/29/21 12/29/21 07:35 11:45 Glucose POC Glucose 165 H 223 H OUTPATIENT ANTIDIABETIC REGIMEN: * Lantus 85 units SC qAM, 35 units SC qPM * Novolin-R 10 units SC TIDM HbA1c: 11.2% (11/18/21) ASSESSMENT: * BR is a 71 year old male well known to pharmacy glycemic service * Pertinent PMH includes morbid obesity, CKD, and T2DM * BSGs elevated on yesterday w/ sustained BSGs > 300 mg/dL * Patient received 141 units of insulin while inpatient yesterday (105 units of basal and 36 units of prandial/correctional bolus) * BSGs much improved today, fasting BSG of 165 mg/dL this morning * Prior admission, patient trended downward on current Lantus regimen - will plan on light reduction today PLAN FOR INPATIENT GLYCEMIC CONTROL: * Basal insulin * Lantus 70 units SQ daily * Lantus 0-30 units SC HS (see EHR for details) * Bolus insulin * NovoLog per scale ACHS or Q6hrs while NPO * Goal Range: Low 110 mg/dL - High 140 mg/dL * Correction Factor: 15 mg/dL/unit * Nutritional / Prandial insulin per carb ratio of 1 unit per 5 grams CHO consumed
--- NOTE | 2021-12-29 16:16 | Hospitalist Progress Note ---
Date of Service December 29, 2021 Assessment & Plan (1) Ambulatory dysfunction: Plan: Morbidly obese with peripheral neuropathy and arthritis limiting his mobility. He reports persistent issues with dizziness especially upon changing positions. He is unable to walk very far at this time. Orthostatic hypotension present on vital signs. He is seems to have responded to IV fluids. We will give an additional 500 cc of IV fluids today and continue to hold diuretics for the time being. Continue to monitor. (2) Orthostatic hypotension: Plan: Fluids given as above. Appears to be the main cause of patient's reported dizziness. ALMA ROSA resolved now with IVF and will cont with some as needed and encourage hydration. Cont to hold diuretics. (3) SALAS (obstructive sleep apnea): Plan: SALAS- states he was on CPAP but [facility] as he was not using much as he should. Agreeable to using CPAP here- ordered. (4) ALMA ROSA (acute kidney injury): Plan: Acute on chronic CKD, with creatinine now improved to baseline off diuretics and with IVF. Cont to hold diuretics for now and monitor. (5) History of pulmonary embolism: Plan: Continue apixaban (6) Hypertension: Plan: Chronic, at goal. Continue current management. (7) Paroxysmal atrial fibrillation: Plan: Chronic, stable on eliquis. on toprol bid, digoxin- dig level not elevated. (8) Diabetes mellitus, type 2: Plan: Chronic and uncontrolled with complications. Currently around goal and being managed by glycemic pharmacist as inpatient. Continue basal bolus insulin. 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 Frausto, ophthalmology. Per records patient has not followed up postoperatively and is experiencing recurrent entropion today with conjunctivitis of both eyes. We will hold on antibiotic drops as these do not appear to have been helping for the last week and we will switch to Naphcon-A to treat possible allergic conjunctivitis. (10) Morbid obesity: (11) DVT prophylaxis: Plan: Apixaban Full Code Dipso-cont to monitor on telemetry Marina Freeman DO [facility] Hospitalist Admission and Anticipated Discharge Date Admission Date: December 28, 2021 Results & Data Results & Data ([facility]) Vital Signs (Past 12 Hours) Vital Signs Temp Pulse Pulse Pulse Resp BP Pulse Ox 12/29/21 11:21 36.5 C 60 16 120/63 94 12/29/21 10:04 97 12/29/21 08:00 61 12/29/21 06:35 36.6 C 62 20 122/67 95 Laboratory Results Short CBC 12/29/21 Range/Units 05:55 WBC 9.58 (4.8-10.8) K/uL Hgb 13.7 L (14.0-18.0) g/dL Hct 43.0 (42-52) % Plt Count 194 (130-400) K/uL BMP 12/29/21 05:55 Sodium 138 Potassium 3.1 L Chloride 95 L Carbon Dioxide 36 H BUN 47 H Creatinine 1.37 D Glucose 162 H Calcium 9.5 Diagnostic Findings Current Inpatient Medications Acetaminophen (Acetaminophen 325 Mg Tab) 650 mg PO Q4H PRN PRN Reason: FEVER/PAIN Stop: 01/27/22 12:48 Last Admin: 12/29/21 10:09 Dose: 650 mg Documented by: Albuterol (Albuterol Hfa 8 Gm Inhaler) 2 puffs INH Q4H PRN PRN Reason: Shortness Of Breath Or Wheezing Stop: 01/27/22 12:48 Last Admin: 12/29/21 09:59 Dose: 2 puffs Documented by: Allopurinol (Allopurinol 300 Mg Tab) 300 mg PO DAILY [facility] Stop: 01/27/22 12:48 Last Admin: 12/29/21 09:32 Dose: 300 mg Documented by: Apixaban (Apixaban 5 Mg Tablet) 5 mg PO BID [facility] Stop: 01/27/22 15:59 Last Admin: 12/29/21 09:30 Dose: 5 mg Documented by: Artificial Tears (Artificial Tears) 1 drops OP Q2HWA [facility] Stop: 01/27/22 15:59 Last Admin: 12/29/21 14:27 Dose: 1 drops Documented by: Aspirin (Aspirin 81 Mg Ectab) 81 mg PO DAILY [facility] Stop: 01/27/22 12:48 Last Admin: 12/29/21 09:32 Dose: 81 mg Documented by: Atorvastatin Calcium (Atorvastatin 10 Mg Tab) 10 mg PO HS [facility] Stop: 01/27/22 20:59 Last Admin: 12/28/21 20:57 Dose: 10 mg Documented by: Bupropion HCl (Bupropion Xl 150 Mg Tabcr) 150 mg PO QAM [facility] Stop: 01/27/22 14:59 Last Admin: 12/29/21 09:31 Dose: 150 mg Documented by: Dextrose (Dextrose 50% 50 Ml Syringe) 25 - 50 ml IV UD PRN; Protocol PRN Reason: Hypoglycemia Protocol Stop: 01/27/22 12:48 Digoxin (Digoxin 0.125 Mg Tab) 0.125 mg PO DAILY@1800 [facility] Stop: 01/27/22 17:59 Last Admin: 12/28/21 17:12 Dose: 0.125 mg Documented by: Duloxetine HCl (Duloxetine Hcl 60 Mg Cap) 60 mg PO DAILY [facility] Stop: 01/28/22 08:59 Last Admin: 12/29/21 09:30 Dose: 60 mg Documented by: Gabapentin (Gabapentin 300 Mg Cap) 300 mg PO TID [facility] Stop: 01/27/22 13:59 Last Admin: 12/29/21 14:27 Dose: 300 mg Documented by: Glucagon (Glucagon For Inj 1 Mg Vial) 1 mg SQ UD PRN; Protocol PRN Reason: Hypoglycemia Protocol Stop: 01/27/22 12:48 Glucose (Glucose 10 Tabs/Tube) 4 - 8 tabs PO UD PRN; Protocol PRN Reason: Hypoglycemia Protocol Stop: 01/27/22 12:48 Glucose (Glucose 40% Gel 15 Gm Tube) 15 - 30 gm PO UD PRN; Protocol PRN Reason: Hypoglycemia Protocol Stop: 01/27/22 12:48 Sodium Chloride (Nss) 500 mls @ 125 mls/hr IV .Q4H [facility] Stop: 12/29/21 17:29 Last Admin: 12/29/21 14:27 Dose: 125 mls/hr Documented by: Insulin Aspart (Insulin Aspart Per Unit) 0 units SC ACHS [facility] Stop: 01/27/22 16:29 Last Admin: 12/29/21 12:59 Dose: 16 units Documented by: Insulin Glargine (Insulin Glargine Solostar 100 Units/Ml 3 Ml Pen) 0 units SC TODAY@2100 [facility]; Protocol Stop: 12/29/21 21:01 Levothyroxine Sodium (Levothyroxine Sodium 125 Mcg Tablet) 250 mcg PO DAILYBB [facility] Stop: 01/28/22 06:29 Last Admin: 12/29/21 05:53 Dose: 250 mcg Documented by: Lidocaine (Lidocaine 5% 1 Patch) [address] [facility]; Protocol Stop: 01/27/22 12:48 Last Admin: 12/29/21 09:33 Dose: 1 patch Documented by: Magnesium Oxide (Magnesium Oxide 400 Mg Tab) 400 mg PO DAILY [facility] Stop: 01/28/22 08:59 Last Admin: 12/29/21 09:31 Dose: 400 mg Documented by: Metoprolol Succinate (Metoprolol Succ 50mg Ext Rel Tab) 150 mg PO BID [facility] Stop: 01/27/22 15:59 Last Admin: 12/29/21 09:31 Dose: 150 mg Documented by: Miscellaneous (Remove Lidoderm Patch) 1 ea N/A DAILY@2100 [facility] Stop: 01/27/22 20:59 Last Admin: 12/28/21 20:57 Dose: 1 ea Documented by: Miscellaneous (Carbohydrates For Hypoglycemia ) 15 - 30 gm PO UD PRN PRN Reason: Hypoglycemia Protocol Stop: 01/27/22 12:48 Miscellaneous Information (Pharmacy Glycemic Mgmt Consult) 1 ea N/A UD PRN PRN Reason: Consult Stop: 01/27/22 16:22 Moxifloxacin HCl (Moxifloxacin Hcl 0.5% Op Soln 3 Ml Btl) 2 drops OP Q4H [facility] Stop: 01/27/22 15:59 Last Admin: 12/29/21 12:59 Dose: 2 drops Documented by: Naphazoline HCl/Pheniramine Maleate (Naphazolin/Pheniramin Oph Soln 75 Drops/5 Ml Btl) 2 drops OPB Q6H [facility] Stop: 12/31/21 15:59 Nystatin (Nystatin Powder 15gm Btl) 1 appln EXT BID [facility] Stop: 01/27/22 20:59 Last Admin: 12/29/21 09:36 Dose: 1 appln Documented by: Pantoprazole Sodium (Pantoprazole 40 Mg Tab) 40 mg PO QAM [facility]; Protocol Stop: 01/28/22 08:59 Last Admin: 12/29/21 11:15 Dose: 40 mg Documented by: Polyethylene Glycol (Polyethylene (Miralax) 17 Gm Pack) 17 gm PO DAILY [facility] Stop: 01/27/22 12:48 Last Admin: 12/29/21 13:18 Dose: 17 gm Documented by: Potassium Chloride (Potassium Chloride Crtab 20 Meq Tabcr) 20 meq PO BID [facility] Stop: 01/27/22 20:59 Last Admin: 12/29/21 09:54 Dose: 20 meq Documented by: Sennosides (Senna 8.6 Mg Tab) 8.6 mg PO BID [facility] Stop: 01/27/22 20:59 Last Admin: 12/29/21 09:36 Dose: Not Given Documented by: Vitamin D (Cholecalciferol 1,000 Units 25 Mcg Tab) 2,000 units PO DAILY [facility] Stop: 01/28/22 08:59 Last Admin: 12/29/21 09:30 Dose: 2,000 units Documented by: Medications Administered Current Inpatient Medications Acetaminophen (Acetaminophen 325 Mg Tab) 650 mg PO Q4H PRN PRN Reason: FEVER/PAIN Stop: 01/27/22 12:48 Last Admin: 12/29/21 10:09 Dose: 650 mg Documented by: Albuterol (Albuterol Hfa 8 Gm Inhaler) 2 puffs INH Q4H PRN PRN Reason: Shortness Of Breath Or Wheezing Stop: 01/27/22 12:48 Last Admin: 12/29/21 09:59 Dose: 2 puffs Documented by: Allopurinol (Allopurinol 300 Mg Tab) 300 mg PO DAILY [facility] Stop: 01/27/22 12:48 Last Admin: 12/29/21 09:32 Dose: 300 mg Documented by: Apixaban (Apixaban 5 Mg Tablet) 5 mg PO BID [facility] Stop: 01/27/22 15:59 Last Admin: 12/29/21 09:30 Dose: 5 mg Documented by: Artificial Tears (Artificial Tears) 1 drops OP Q2HWA [facility] Stop: 01/27/22 15:59 Last Admin: 12/29/21 14:27 Dose: 1 drops Documented by: Aspirin (Aspirin 81 Mg Ectab) 81 mg PO DAILY [facility] Stop: 01/27/22 12:48 Last Admin: 12/29/21 09:32 Dose: 81 mg Documented by: Atorvastatin Calcium (Atorvastatin 10 Mg Tab) 10 mg PO HS [facility] Stop: 01/27/22 20:59 Last Admin: 12/28/21 20:57 Dose: 10 mg Documented by: Bupropion HCl (Bupropion Xl 150 Mg Tabcr) 150 mg PO QAM [facility] Stop: 01/27/22 14:59 Last Admin: 12/29/21 09:31 Dose: 150 mg Documented by: Dextrose (Dextrose 50% 50 Ml Syringe) 25 - 50 ml IV UD PRN; Protocol PRN Reason: Hypoglycemia Protocol Stop: 01/27/22 12:48 Digoxin (Digoxin 0.125 Mg Tab) 0.125 mg PO DAILY@1800 [facility] Stop: 01/27/22 17:59 Last Admin: 12/28/21 17:12 Dose: 0.125 mg Documented by: Duloxetine HCl (Duloxetine Hcl 60 Mg Cap) 60 mg PO DAILY [facility] Stop: 01/28/22 08:59 Last Admin: 12/29/21 09:30 Dose: 60 mg Documented by: Gabapentin (Gabapentin 300 Mg Cap) 300 mg PO TID [facility] Stop: 01/27/22 13:59 Last Admin: 12/29/21 14:27 Dose: 300 mg Documented by: Glucagon (Glucagon For Inj 1 Mg Vial) 1 mg SQ UD PRN; Protocol PRN Reason: Hypoglycemia Protocol Stop: 01/27/22 12:48 Glucose (Glucose 10 Tabs/Tube) 4 - 8 tabs PO UD PRN; Protocol PRN Reason: Hypoglycemia Protocol Stop: 01/27/22 12:48 Glucose (Glucose 40% Gel 15 Gm Tube) 15 - 30 gm PO UD PRN; Protocol PRN Reason: Hypoglycemia Protocol Stop: 01/27/22 12:48 Sodium Chloride (Nss) 500 mls @ 125 mls/hr IV .Q4H [facility] Stop: 12/29/21 17:29 Last Admin: 12/29/21 14:27 Dose: 125 mls/hr Documented by: Insulin Aspart (Insulin Aspart Per Unit) 0 units SC ACHS [facility] Stop: 01/27/22 16:29 Last Admin: 12/29/21 12:59 Dose: 16 units Documented by: Insulin Glargine (Insulin Glargine Solostar 100 Units/Ml 3 Ml Pen) 0 units SC TODAY@2100 [facility]; Protocol Stop: 12/29/21 21:01 Levothyroxine Sodium ([facility]othyroxine S[facility] 125 [facility]g [facility]t) [facility] Stop: 01/28/22 06:29 Last Admin: 12/29/21 05:53 Dose: 250 mcg Documented by: Lidocaine (Lidocaine 5% 1 Patch) 1 patch TD QAM [facility]; Protocol Stop: 01/27/22 12:48 Last Admin: 12/29/21 09:33 Dose: 1 patch Documented by: Magnesium Oxide (Magnesium Oxide 400 Mg Tab) 400 mg PO DAILY [facility] Stop: 01/28/22 08:59 Last Admin: 12/29/21 09:31 Dose: 400 mg Documented by: Metoprolol Succinate (Metoprolol Succ 50mg Ext Rel Tab) 150 mg PO BID [facility] Stop: 01/27/22 15:59 Last Admin: 12/29/21 09:31 Dose: 150 mg Documented by: Miscellaneous (Remove Lidoderm Patch) 1 ea N/A DAILY@2100 [facility] Stop: 01/27/22 20:59 Last Admin: 12/28/21 20:57 Dose: 1 ea Documented by: Miscellaneous (Carbohydrates For Hypoglycemia ) 15 - 30 gm PO UD PRN PRN Reason: Hypoglycemia Protocol Stop: 01/27/22 12:48 Miscellaneous Information (Pharmacy Glycemic Mgmt Consult) 1 ea N/A UD PRN PRN Reason: Consult Stop: 01/27/22 16:22 Moxifloxacin HCl (Moxifloxacin Hcl 0.5% Op Soln 3 Ml Btl) 2 drops OP Q4H [facility] Stop: 01/27/22 15:59 Last Admin: 12/29/21 12:59 Dose: 2 drops Documented by: Naphazoline HCl/Pheniramine Maleate (Naphazolin/Pheniramin Oph Soln 75 Drops/5 Ml Btl) 2 drops OPB Q6H [facility] Stop: 12/31/21 15:59 Nystatin (Nystatin Powder 15gm Btl) 1 appln EXT BID [facility] Stop: 01/27/22 20:59 Last Admin: 12/29/21 09:36 Dose: 1 appln Documented by: Pantoprazole Sodium (Pantoprazole 40 Mg Tab) 40 mg PO QAM [facility]; Protocol Stop: 01/28/22 08:59 Last Admin: 12/29/21 11:15 Dose: 40 mg Documented by: Polyethylene Glycol (Polyethylene (Miralax) 17 Gm Pack) 17 gm PO DAILY [facility] Stop: 01/27/22 12:48 Last Admin: 12/29/21 13:18 Dose: 17 gm Documented by: Potassium Chloride (Potassium Chloride Crtab 20 Meq Tabcr) 20 meq PO BID [facility] Stop: 01/27/22 20:59 Last Admin: 12/29/21 09:54 Dose: 20 meq Documented by: Sennosides (Senna 8.6 Mg Tab) 8.6 mg PO BID [facility] Stop: 01/27/22 20:59 Last Admin: 12/29/21 09:36 Dose: Not Given Documented by: Vitamin D (Cholecalciferol 1,000 Units 25 Mcg Tab) 2,000 units PO DAILY [facility] Stop: 01/28/22 08:59 Last Admin: 12/29/21 09:30 Dose: 2,000 units Documented by: (1) Hypertension Hypertension type: unspecified Qualified Code(s): I10 - Essential (primary) hypertension (2) Diabetes mellitus, type 2 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
[2021-12-29] MEDS: DIGOXIN 0.125 MG TAB PO SCH (17:57)
[2021-12-29] MEDS: NAPHAZOLIN/PHENIRAMIN OPH SOLN 75 DROPS/5 ML BTL OPB SCH ×2 (17:58→22:55)
[2021-12-29] MEDS: ATORVASTATIN 10 MG TAB PO SCH (20:51)
--- NOTE | 2021-12-29 22:27 | Cardiology Progress Note ---
Date of Service December 29, 2021 Assessment & Plan (1) Weakness: (2) Near syncope: (3) Hypokalemia: (4) Hypercapnia: (5) Dehydration: (6) Recurrent falls: (7) CKD (chronic kidney disease): (8) Micturition syncope: (9) Ambulatory dysfunction: (10) Chronic diastolic CHF (congestive heart failure): (11) SALAS (obstructive sleep apnea): (12) History of pulmonary embolism: Plan: I do not see any significant cardiac component to his presentation. 2D echocardiogram is unchanged. interrogation revealed appropriate functioning device without ventricular arrhythmia No further cardiac testing or intervention necessary at this time Admission and Anticipated Discharge Date Admission Date: December 28, 2021 Physical Exam Physical Exam: General: Awake, alert and oriented x 3. No acute distress. HEENT: Normocephalic, atraumatic. Pupils equal, round and reactive to light and accommodation. Extraocular muscles are intact. Anicteric sclera. Moist mucous membranes. Neck: No JVD. No bruit. Cardiovascular: irregularly irregular, unable to appreciate murmur, rub or gallop. Pulmonary: Clear to auscultation bilaterally. No rales, rhonchi, or wheezing. Abdomen: Bowel sounds x 4, soft. No rebound, guarding or tenderness. No organomegaly. Extremities: No clubbing, cyanosis or edema. +2 pedal pulses bilaterally. Skin: Warm and dry. Results & Data ([facility]) Vital Signs (Past 12 Hours) Vital Signs Temp Pulse Pulse Resp BP Pulse Ox 12/29/21 20:00 36.3 C L 61 18 95/56 L 93 12/29/21 17:57 70 12/29/21 16:10 36.2 C L 64 16 122/78 96 12/29/21 16:00 78 12/29/21 11:21 36.5 C 60 16 120/63 94 (1) CKD (chronic kidney disease) Chronic kidney disease stage: unspecified stage Qualified Code(s): N18.9 - Chronic kidney disease, unspecified
[2021-12-30] MEDS ORDERED: SODIUM CHLORIDE 0.9% 500 ML IV SCH (00:15)
[2021-12-30] MEDS: ACETAMINOPHEN 325 MG TAB PO PRN ×2 (00:35→07:05)
[2021-12-30] MEDS: ARTIFICIAL TEARS OP SCH ×9 (05:43→22:46)
[2021-12-30] MEDS: NAPHAZOLIN/PHENIRAMIN OPH SOLN 75 DROPS/5 ML BTL OPB SCH ×4 (05:43→23:47)
[2021-12-30] MEDS: LEVOTHYROXINE SODIUM 125 MCG TABLET PO SCH (05:57)
[2021-12-30] MEDS: POTASSIUM CHLORIDE CRTAB 20 MEQ TABCR PO SCH (08:37)
[2021-12-30] MEDS: SENNA 8.6 MG TAB PO SCH ×2 (08:37→20:52)
[2021-12-30] MEDS: APIXABAN 5 MG TABLET PO SCH ×2 (08:37→20:53)
[2021-12-30] MEDS: GABAPENTIN 300 MG CAP PO SCH ×3 (08:37→21:10)
[2021-12-30] MEDS: NYSTATIN POWDER 15GM BTL EXT SCH ×2 (08:40→20:54)
[2021-12-30] MEDS: METOPROLOL SUCC 50MG EXT REL TAB PO SCH ×2 (08:40→20:53)
[2021-12-30] MEDS: POLYETHYLENE (MIRALAX) 17 GM PACK PO SCH (08:54)
[2021-12-30] MEDS: INSULIN ASPART PER UNIT SC SCH ×4 (08:54→20:55)
[2021-12-30] MEDS: buPROPion XL 150 MG TABCR PO SCH (09:30)
[2021-12-30] MEDS: DULoxetine HCL 60 MG CAP PO SCH (09:30)
[2021-12-30] MEDS: allopurinoL 300 MG TAB PO SCH (09:30)
[2021-12-30] MEDS: CHOLECALCIFEROL 1,000 UNITS 25 MCG TAB PO SCH (09:31)
[2021-12-30] MEDS: LIDOCAINE 5% 1 PATCH TD SCH (09:31)
[2021-12-30] MEDS: INSULIN GLARGINE SOLOSTAR 100 UNITS/ML 3 ML PEN SC SCH (09:32)
[2021-12-30] MEDS: MAGNESIUM OXIDE 400 MG TAB PO SCH (09:54)
[2021-12-30] MEDS: ASPIRIN 81 MG ECTAB PO SCH (09:54)
[2021-12-30] MEDS: PANTOprazole 40 MG TAB PO SCH (09:54)
[2021-12-30 12:00] LABS: BUN Creatinine Ratio 31.2 (10-20); Calcium 9.7 mg/dl (8.5-10.1); Creatinine Clr Calc Pharmacy 66.7 ml/min; Est GFR (African American) 58.5 ml/min; Est GFR (Non-African American) 50.5 ml/min; Magnesium 2.1 mg/dl (1.7-2.4); Potassium 3.8 mmol/L (3.5-5.1)
[2021-12-30 12:19] LABS: Folate (Folic Acid) 16.17 ng/ml (>5.38)
[2021-12-30] MEDS ORDERED: INSULIN HUMAN REGULAR PER UNIT 7 UNITS in SYRINGE 6.93 ML IV ONE (12:30)
--- NOTE | 2021-12-30 13:04 | Pharmacy Report ---
Pharmacy Glycemic Short Note 2 - Date of Service December 30, 2021 - Glycemic Short BSG Results (Last 24 hours): 12/29/21 12/29/21 12/30/21 16:55 20:11 07:48 Glucose POC Glucose 286 H 238 H 220 H 12/30/21 12/30/21 12/30/21 11:19 11:42 11:44 Glucose 328 H* POC Glucose 323 H* 326 H* OUTPATIENT ANTIDIABETIC REGIMEN: * Lantus 85 units SC qAM, 35 units SC qPM * Novolin-R 10 units SC TIDM HbA1c: 11.2% (11/18/21) ASSESSMENT: 12/30/21 * BSGs elevated yesterday, ranging 165-286 mg/dL w/ fasting BSG of 220 mg/dL this morning * Received 148 untis of insulin (100 units of Lantus and 48 units of Novolog) * Will tighten Novolog parameters and plan to increase basal insulin today * Lunch BSG of 323 mg/dL today - will give IV insulin bolus and continue tightened Novolog parameters 12/29/21 * BR is a 71 year old male well known to pharmacy glycemic service * Pertinent PMH includes morbid obesity, CKD, and T2DM * BSGs elevated on yesterday w/ sustained BSGs > 300 mg/dL * Patient received 141 units of insulin while inpatient yesterday (105 units of basal and 36 units of prandial/correctional bolus) * BSGs much improved today, fasting BSG of 165 mg/dL this morning * Prior admission, patient trended downward on current Lantus regimen - will plan on light reduction today PLAN FOR INPATIENT GLYCEMIC CONTROL: * Basal insulin * Lantus 80 units SQ daily * Lantus 20-35 units SC HS (see EHR for details) * Bolus insulin * NovoLog per scale ACHS or Q6hrs while NPO * Goal Range: Low 110 mg/dL - High 140 mg/dL * Correction Factor: 12 mg/dL/unit * Nutritional / Prandial insulin per carb ratio of 1 unit per 4 grams CHO consumed
--- NOTE | 2021-12-30 14:47 | Hospitalist Progress Note ---
Date of Service December 30, 2021 Assessment & Plan (1) Ambulatory dysfunction: Plan: Morbidly obese with peripheral neuropathy and arthritis limiting his mobility. He reports persistent issues with dizziness especially upon changing positions. He is unable to walk very far at this time but is improving. Orthostatic hypotension present on vital signs. He is seems to have responded to IV fluids. He is reporting improvement. PT/OT assessment reveals he is ambulating at baseline and taught him how to pause for time prior to next move when changing positions. (2) Orthostatic hypotension: Plan: Fluids given\intermittently and diuretics held with improvement in clinical symptoms. ALMA ROSA resolved now with IVF and will cont with some as needed and encourage hydration. Cont to hold diuretics. Needs to regain control of diabetes with A1C of 11.2 last month. (3) SALAS (obstructive sleep apnea): Plan: SALAS- states he was on CPAP but [facility] as he was not using much as he should. Agreeable to using CPAP here- ordered. (4) ALMA ROSA (acute kidney injury): Plan: Acute on chronic CKD, with creatinine now improved to baseline off diuretics and with IVF. Cont to hold diuretics for now and monitor. (5) History of pulmonary embolism: Plan: Continue apixaban (6) Hypertension: Plan: Chronic, at goal. Continue current management. (7) Paroxysmal atrial fibrillation: Plan: Chronic, stable on eliquis. on toprol bid, digoxin- dig level not elevated. (8) Diabetes mellitus, type 2: Plan: Chronic and uncontrolled with complications. Currently around goal and being managed by glycemic pharmacist as inpatient. Continue basal bolus insulin. 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 Frausto, ophthalmology. Per records patient has not followed up postoperatively and is experiencing recurrent entropion today with conjunctivitis of both eyes. We will hold on antibiotic drops as these do not appear to have been helping for the last week and we will switch to Naphcon-A to treat possible allergic conjunctivitis. 12/30: eye redness still present but patient reports some improvement, consider talking with his allergist. Cont Naphcon-A for now. (10) Morbid obesity: Plan: Lifestyle changes recommended to lose body fat. (11) DVT prophylaxis: Plan: Apixaban Full Code Dipso-cont to monitor on telemetry DO Fred Ramonisinger Hospitalist Admission and Anticipated Discharge Date Admission Date: December 28, 2021 Subjective 71-year-old man who is a resident at [facility] presented for evaluation of recurrent falls. He had a syncopal episode just prior to arrival and reports hitting his head against a door. Headache from yesterday has improved/resolved After holding diuretics and giving intermittent fluids, patient feels dizziness is improving Feels that antihistamine eyedrops are improving his eye symptoms somewhat however his eyes remain very irritated and watery We discussed that he has had a long ophthalmologic course including a surgery in June for which she has not followed up with ophthalmology yet. He discussed multiple barriers to follow-up. Overall feels he is doing somewhat better and able to move more today. Review of Systems Review of Systems: All systems reviewed and negative except as indicated above. Physical Exam Physical Exam: CONSTITUTIONAL: obese, vitals as above, generally well- appearing, squinting eyes which water in the light, clear drainage from eyes. EYES: injected sclerae, inflamed and red conjuctivae L>R ENT: external ear and nose normal, NECK: trachea midline RESPIRATORY: clear to auscultation bilaterally, no crackles, rales or wheezes, normal respiratory effort CARDIOVASCULAR: regular rate and rhythm, S1 and 2 heard without murmurs, gallops or rubs, no JVD, no peripheral edema CHEST: inspection of chest was normal GASTROINTESTINAL: soft, nontender, ND, no guarding MUSCULOSKELETAL: strength 5/5 throughout, head is normocephalic and atraumatic, neck supple, normal palpation of chest wall without tenderness SKIN: warm and dry, NEUROLOGIC: CN 2-12 grossly intact, no sensory deficit, normal cognition, normal speech, no tremor PSYCHIATRIC: alert cooperative and oriented to person, place and time. Euthymic mood, makes good eye contact, language grossly intact, recent and remote memory grossly intact. Results & Data Results & Data ([facility]) Vital Signs (Past 12 Hours) Vital Signs Temp Pulse Pulse Resp BP BP Pulse Ox 12/30/21 11:00 36.3 C L 62 18 125/77 95 12/30/21 07:49 63 18 134/79 100 12/30/21 07:01 61 12/30/21 05:10 36.4 C L 61 18 125/71 96 Laboratory Results [facility] 12/30/21 11:19 Sodium 135 L Potassium 3.8 D Chloride 96 L Carbon Dioxide 33 H BUN 44 H Creatinine 1.41 H Glucose 328 H* Calcium 9.7 Medications Administered Current Inpatient Medications Acetaminophen (Acetaminophen 325 Mg Tab) 650 mg PO Q4H PRN PRN Reason: FEVER/PAIN Stop: 01/27/22 12:48 Last Admin: 12/30/21 07:05 Dose: 650 mg Documented by: Albuterol (Albuterol Hfa 8 Gm Inhaler) 2 puffs INH Q4H PRN PRN Reason: Shortness Of Breath Or Wheezing Stop: 01/27/22 12:48 Last Admin: 12/29/21 09:59 Dose: 2 puffs Documented by: Allopurinol (Allopurinol 300 Mg Tab) 300 mg PO DAILY [facility] Stop: 01/27/22 12:48 Last Admin: 12/30/21 09:30 Dose: 300 mg Documented by: Apixaban (Apixaban 5 Mg Tablet) 5 mg PO BID [facility] Stop: 01/27/22 15:59 Last Admin: 12/30/21 08:37 Dose: 5 mg Documented by: Artificial Tears (Artificial Tears) 1 drops OP Q2HWA [facility] Stop: 01/27/22 15:59 Last Admin: 12/30/21 14:18 Dose: 1 drops Documented by: Aspirin (Aspirin 81 Mg Ectab) 81 mg PO DAILY [facility] Stop: 01/27/22 12:48 Last Admin: 12/30/21 09:54 Dose: 81 mg Documented by: Atorvastatin Calcium (Atorvastatin 10 Mg Tab) 10 mg PO HS [facility] Stop: 01/27/22 20:59 Last Admin: 12/29/21 20:51 Dose: 10 mg Documented by: Bupropion HCl (Bupropion Xl 150 Mg Tabcr) 150 mg PO QAM [facility] Stop: 01/27/22 14:59 Last Admin: 12/30/21 09:30 Dose: 150 mg Documented by: Dextrose (Dextrose 50% 50 Ml Syringe) 25 - 50 ml IV UD PRN; Protocol PRN Reason: Hypoglycemia Protocol Stop: 01/27/22 12:48 Digoxin (Digoxin 0.125 Mg Tab) 0.125 mg PO DAILY@1800 [facility] Stop: 01/27/22 17:59 Last Admin: 12/29/21 17:57 Dose: 0.125 mg Documented by: Duloxetine HCl (Duloxetine Hcl 60 Mg Cap) 60 mg PO DAILY [facility] Stop: 01/28/22 08:59 Last Admin: 12/30/21 09:30 Dose: 60 mg Documented by: Gabapentin (Gabapentin 300 Mg Cap) 300 mg PO TID [facility] Stop: 01/27/22 13:59 Last Admin: 12/30/21 12:58 Dose: 300 mg Documented by: Glucagon (Glucagon For Inj 1 Mg Vial) 1 mg SQ UD PRN; Protocol PRN Reason: Hypoglycemia Protocol Stop: 01/27/22 12:48 Glucose (Glucose 10 Tabs/Tube) 4 - 8 tabs PO UD PRN; Protocol PRN Reason: Hypoglycemia Protocol Stop: 01/27/22 12:48 Glucose (Glucose 40% Gel 15 Gm Tube) 15 - 30 gm PO UD PRN; Protocol PRN Reason: Hypoglycemia Protocol Stop: 01/27/22 12:48 Insulin Aspart (Insulin Aspart Per Unit) 0 units SC ACHS [facility] Stop: 01/27/22 16:29 Last Admin: 12/30/21 12:23 Dose: 27 units Documented by: Insulin Aspart (Insulin Aspart Per Unit) 0 units SC 0200 [facility] Stop: 12/31/21 02:01 Insulin Glargine (Insulin Glargine Solostar 100 Units/Ml 3 Ml Pen) 80 units SC DAILY [facility] Stop: 01/29/22 08:59 Last Admin: 12/30/21 09:32 Dose: 80 units Documented by: Insulin Glargine (Insulin Glargine Solostar 100 Units/Ml 3 Ml Pen) 0 units SC TODAY@2100 [facility]; Protocol Stop: 12/30/21 21:01 Levothyroxine Sodium (Levothyroxine Sodium 125 Mcg Tablet) [facility] Stop: 01/28/22 06:29 Last Admin: 12/30/21 05:57 Dose: 250 mcg Documented by: Lidocaine (Lidocaine 5% 1 Patch) 1 patch TD QAM [facility]; Protocol Stop: 01/27/22 12:48 Last Admin: 12/30/21 09:31 Dose: 1 patch Documented by: Magnesium Oxide (Magnesium Oxide 400 Mg Tab) 400 mg PO DAILY [facility] Stop: 01/28/22 08:59 Last Admin: 12/30/21 09:54 Dose: 400 mg Documented by: Metoprolol Succinate (Metoprolol Succ 50mg Ext Rel Tab) 150 mg PO BID [facility] Stop: 01/27/22 15:59 Last Admin: 12/30/21 08:40 Dose: 150 mg Documented by: Miscellaneous (Remove Lidoderm Patch) 1 ea N/A DAILY@2100 [facility] Stop: 01/27/22 20:59 Last Admin: 12/29/21 20:19 Dose: 1 ea Documented by: Miscellaneous (Carbohydrates For Hypoglycemia ) 15 - 30 gm PO UD PRN PRN Reason: Hypoglycemia Protocol Stop: 01/27/22 12:48 Miscellaneous Information (Pharmacy Glycemic Mgmt Consult) 1 ea N/A UD PRN PRN Reason: Consult Stop: 01/27/22 16:22 Moxifloxacin HCl (Moxifloxacin Hcl 0.5% Op Soln 3 Ml Btl) 2 drops OP Q4H [facility] Stop: 01/27/22 15:59 Last Admin: 12/29/21 12:59 Dose: 2 drops Documented by: Naphazoline HCl/Pheniramine Maleate (Naphazolin/Pheniramin Oph Soln 75 Drops/5 Ml Btl) [facility] Stop: 01/28/22 17:59 Last Admin: 12/30/21 12:31 Dose: 2 drops Documented by: Nystatin (Nystatin Powder 15gm Btl) 1 appln EXT BID [facility] Stop: 01/27/22 20:59 Last Admin: 12/30/21 08:40 Dose: 1 appln Documented by: Pantoprazole Sodium (Pantoprazole 40 Mg Tab) 40 mg PO QAM [facility]; Protocol Stop: 01/28/22 08:59 Last Admin: 12/30/21 09:54 Dose: 40 mg Documented by: Polyethylene Glycol (Polyethylene (Miralax) 17 Gm Pack) 17 gm PO DAILY [facility] Stop: 01/27/22 12:48 Last Admin: 12/30/21 08:54 Dose: 17 gm Documented by: Potassium Chloride (Potassium Chloride Crtab 20 Meq Tabcr) 20 meq PO BID [facility] Stop: 01/27/22 20:59 Last Admin: 12/30/21 08:37 Dose: 20 meq Documented by: Sennosides (Senna 8.6 Mg Tab) 8.6 mg PO BID [facility] Stop: 01/27/22 20:59 Last Admin: 12/30/21 08:37 Dose: 8.6 mg Documented by: Vitamin D (Cholecalciferol 1,000 Units 25 Mcg Tab) 2,000 units PO DAILY [facility] Stop: 01/28/22 08:59 Last Admin: 12/30/21 09:31 Dose: 2,000 units Documented by: (1) Diabetes mellitus, type 2 Diabetes mellitus complication detail: without coma Diabetes mellitus complication status: with hypoglycemia 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
[2021-12-30] MEDS: DIGOXIN 0.125 MG TAB PO SCH (18:06)
[2021-12-30] MEDS: ATORVASTATIN 10 MG TAB PO SCH (20:53)
[2021-12-30] MEDS ORDERED: INSULIN GLARGINE SOLOSTAR 100 UNITS/ML 3 ML PEN SC SCH (21:00)
[2021-12-31] MEDS ORDERED: INSULIN ASPART PER UNIT SC SCH (02:00)
[2021-12-31] MEDS: ARTIFICIAL TEARS OP SCH ×5 (05:43→13:20)
[2021-12-31] MEDS: NAPHAZOLIN/PHENIRAMIN OPH SOLN 75 DROPS/5 ML BTL OPB SCH ×2 (05:43→11:48)
[2021-12-31] MEDS: LEVOTHYROXINE SODIUM 125 MCG TABLET PO SCH (05:47)
[2021-12-31 06:52] LABS: BUN Creatinine Ratio 26.4 (10-20); Calcium 9.6 mg/dl (8.5-10.1); Creatinine Clr Calc Pharmacy 72.9 ml/min; Est GFR (African American) 65.1 ml/min; Est GFR (Non-African American) 56.2 ml/min; Potassium 3.8 mmol/L (3.5-5.1)
[2021-12-31] MEDS: INSULIN GLARGINE SOLOSTAR 100 UNITS/ML 3 ML PEN SC SCH (08:34)
[2021-12-31] MEDS: buPROPion XL 150 MG TABCR PO SCH (08:36)
[2021-12-31] MEDS: PANTOprazole 40 MG TAB PO SCH (08:36)
[2021-12-31] MEDS: ASPIRIN 81 MG ECTAB PO SCH (08:36)
[2021-12-31] MEDS: METOPROLOL SUCC 50MG EXT REL TAB PO SCH (08:36)
[2021-12-31] MEDS: CHOLECALCIFEROL 1,000 UNITS 25 MCG TAB PO SCH (08:37)
[2021-12-31] MEDS: DULoxetine HCL 60 MG CAP PO SCH (08:37)
[2021-12-31] MEDS: MAGNESIUM OXIDE 400 MG TAB PO SCH (08:37)
[2021-12-31] MEDS: allopurinoL 300 MG TAB PO SCH (08:37)
[2021-12-31] MEDS: APIXABAN 5 MG TABLET PO SCH (08:38)
[2021-12-31] MEDS: SENNA 8.6 MG TAB PO SCH (08:38)
[2021-12-31] MEDS: NYSTATIN POWDER 15GM BTL EXT SCH (08:39)
[2021-12-31] MEDS: INSULIN ASPART PER UNIT SC SCH ×2 (08:49→12:37)
[2021-12-31] MEDS: POLYETHYLENE (MIRALAX) 17 GM PACK PO SCH (08:50)
[2021-12-31] MEDS: LIDOCAINE 5% 1 PATCH TD SCH (08:50)
[2021-12-31] MEDS ORDERED: POTASSIUM CHLORIDE CRTAB 20 MEQ TABCR PO SCH (09:00)
[2021-12-31] MEDS ORDERED: FUROSEMIDE 40 MG TAB PO SCH (09:00)
[2021-12-31] MEDS: GABAPENTIN 300 MG CAP PO SCH (11:47)
--- NOTE | 2021-12-31 11:52 | Hospitalist Progress Note ---
Date of Service December 31, 2021 Assessment & Plan (1) Ambulatory dysfunction: Plan: Morbidly obese with peripheral neuropathy and arthritis limiting his mobility. He reports persistent issues with dizziness especially upon changing positions. He is unable to walk very far at this time but is improving. Orthostatic hypotension present on vital signs. He is seems to have responded to IV fluids. He is reporting improvement. PT/OT assessment reveals he is ambulating at baseline and taught him how to pause for time prior to next move when changing positions. (2) Orthostatic hypotension: Plan: Fluids given\intermittently and diuretics held with improvement in clinical symptoms. ALMA ROSA resolved now with IVF and will cont with some as needed and encourage hydration. Cont to hold diuretics. Needs to regain control of diabetes with A1C of 11.2 last month. (3) SALAS (obstructive sleep apnea): Plan: SALAS- states he was on CPAP but [facility] as he was not using much as he should. Agreeable to using CPAP here- ordered. (4) ALMA ROSA (acute kidney injury): Plan: Acute on chronic CKD, with creatinine now improved to baseline off diuretics and with IVF. Cont to hold diuretics for now and monitor. (5) History of pulmonary embolism: Plan: Continue apixaban (6) Hypertension: Plan: Chronic, at goal. Continue current management. (7) Paroxysmal atrial fibrillation: Plan: Chronic, stable on eliquis. on toprol bid, digoxin- dig level not elevated. (8) Diabetes mellitus, type 2: Plan: Chronic and uncontrolled with complications. Currently around goal and being managed by glycemic pharmacist as inpatient. Continue basal bolus insulin. 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 Frausto, ophthalmology. Per records patient has not followed up postoperatively and is experiencing recurrent entropion today with conjunctivitis of both eyes. We will hold on antibiotic drops as these do not appear to have been helping for the last week and we will switch to Naphcon-A to treat possible allergic conjunctivitis. 12/30: eye redness still present but patient reports some improvement, consider talking with his police communications operator. Cont Naphcon-A for now. (10) Morbid obesity: Plan: Lifestyle changes recommended to lose body fat. (11) DVT prophylaxis: Plan: Apixaban Full Code Dipso-cont to monitor on telemetry DO Fred Ramonisinger Hospitalist Admission and Anticipated Discharge Date Admission Date: December 28, 2021 Subjective 71-year-old man who is a resident at [facility] presented for evaluation of recurrent falls. He had a syncopal episode just prior to arrival and reports hitting his head against a door. Headache from yesterday has improved/resolved After holding diuretics and giving intermittent fluids, patient feels dizziness is improving Feels that antihistamine eyedrops are improving his eye symptoms somewhat however his eyes remain very irritated and watery We discussed that he has had a long ophthalmologic course including a surgery in June for which she has not followed up with ophthalmology yet. He discussed multiple barriers to follow-up. Overall feels he is doing somewhat better and able to move more today. Results & Data Results & Data ([facility]) Vital Signs (Past 12 Hours) Vital Signs Temp Pulse Pulse Resp BP BP Pulse Ox 12/31/21 11:48 36.4 C L 64 18 130/72 95 12/31/21 07:32 36.4 C L 107 H 20 157/82 H 97 12/31/21 07:16 64 12/31/21 03:16 36.3 C L 76 18 134/71 92 12/31/21 00:24 36.4 C L 60 18 152/71 H 95 (1) Hypertension Hypertension type: unspecified Qualified Code(s): I10 - Essential (primary) hypertension (2) Diabetes mellitus, type 2 Diabetes mellitus chcf insulin use: with chcf use Diabetes mellitus complication status: with hypoglycemia Diabetes mellitus complication detail: without coma Qualified Code(s): E11.649 - Type 2 diabetes mellitus with hypoglycemia without coma; Z79.4 - terminologist (current) use of insulin
--- NOTE | 2021-12-31 12:26 | Pharmacy Report ---
Pharmacy Glycemic Short Note 2 - Date of Service December 31, 2021 - Glycemic Short BSG Results (Last 24 hours): 12/30/21 12/30/21 12/31/21 16:56 20:08 01:40 Glucose POC Glucose 168 H 247 H 205 H 12/31/21 12/31/21 12/31/21 05:50 07:52 11:32 Glucose 215 H POC Glucose 215 H 330 H* 12/31/21 11:34 Glucose POC Glucose 314 H* OUTPATIENT ANTIDIABETIC REGIMEN: * Lantus 85 units SC qAM, 35 units SC qPM * Novolin-R 10 units SC TIDM HbA1c: 11.2% (11/18/21) ASSESSMENT: 12/31/21 * Patient's BSGs yesterday were [phone] mg/dL. Patient received 189 units of insulin (Lantus 115 units and 74 units of bolus). This represents a 27% increase in TDD from 12/30/21. * Patient's BSGs @ 0200 was 205 mg/dL and patient received 6 units of Novolog. * Today's BSGs are 215-314 mg/dL. * Will increase Lantus to 125 units (80 units in morning and 45 units in evening - this represents about a 10% increase). * With breakfast, carbohydrate ratio was tightened from 4 to 3. * With elevated lunch BSG, tighten CF and CR. 12/30/21 * BSGs elevated yesterday, ranging 165-286 mg/dL w/ fasting BSG of 220 mg/dL this morning * Received 148 untis of insulin (100 units of Lantus and 48 units of Novolog) * Will tighten Novolog parameters and plan to increase basal insulin today * Lunch BSG of 323 mg/dL today - will give IV insulin bolus and continue tightened Novolog parameters 12/29/21 * BR is a 71 year old male well known to pharmacy glycemic service * Pertinent PMH includes morbid obesity, CKD, and T2DM * BSGs elevated on yesterday w/ sustained BSGs > 300 mg/dL * Patient received 141 units of insulin while inpatient yesterday (105 units of basal and 36 units of prandial/correctional bolus) * BSGs much improved today, fasting BSG of 165 mg/dL this morning * Prior admission, patient trended downward on current Lantus regimen - will plan on light reduction today PLAN FOR INPATIENT GLYCEMIC CONTROL: * Basal insulin * Lantus 80 units SQ daily and 45 units SQ HS * Bolus insulin * NovoLog per scale ACHS or Q6hrs while NPO * Goal Range: Low 110 mg/dL - High 140 mg/dL * Correction Factor: 10 mg/dL/unit * Nutritional / Prandial insulin per carb ratio of 1 unit per 2.5 grams CHO consumed
--- NOTE | 2021-12-31 12:46 | Discharge Summary ---
Date of Service December 31, 2021 Principal Diagnosis Ambulatory dysfunction Syncope Orthostatic hypotension Obstructive sleep apnea Acute kidney injury Entropion of right lower eyelid Discharge Exam CONSTITUTIONAL: obese, vitals as above, generally well-appearing, squinting eyes which water in the light, clear drainage from eyes. EYES: injected sclerae, inflamed and red conjunctivae--improved ENT: external ear and nose normal, NECK: trachea midline RESPIRATORY: clear to auscultation bilaterally, no crackles, rales or wheezes, normal respiratory effort CARDIOVASCULAR: regular rate and rhythm, S1 and 2 heard without murmurs, gallops or rubs, no JVD, no peripheral edema CHEST: inspection of chest was normal GASTROINTESTINAL: soft, nontender, ND, no guarding MUSCULOSKELETAL: strength 5/5 throughout, head is normocephalic and atraumatic, neck supple, normal palpation of chest wall without tenderness SKIN: warm and dry, NEUROLOGIC: CN 2-12 grossly intact, no sensory deficit, normal cognition, normal speech, no tremor PSYCHIATRIC: alert cooperative and oriented to person, place and time. Euthymic mood, makes good eye contact, language grossly intact, recent and remote memory grossly intact. Discharge Data Allergies Allergy/AdvReac Type Severity Reaction Status Date / Time No Known Allergies Allergy Verified 12/28/21 06:33 Consultations 12/28/21 07:01 ED Decision to Admit Stat 12/28/21 09:54 Consult Cardiology Routine Hospital Course (1) Ambulatory dysfunction: Morbidly obese with peripheral neuropathy and arthritis limiting his mobility. He reports persistent issues with dizziness especially upon changing positions. He is unable to walk very far at this time but is improving. Orthostatic hypotension present on vital signs. He is seems to have responded to IV fluids and holding of diuretic therapy. He is reporting improvement. PT/OT assessment reveals he is ambulating at baseline and taught him how to pause for time prior to next move when changing positions. Notably he has repor kalin this dizziness for the last couple of admissions, but has always been on high dose diuretics. Decreased dose to 40mg once daily with close follow-up with PCP and/or cardiology. (2) Orthostatic hypotension: Fluids given\intermittently and diuretics held with improvement in clinical symptoms. ALMA ROSA resolved. Needs to regain control of diabetes with A1C of 11.2 last month. (3) ALMA ROSA (acute kidney injury): Acute on chronic CKD, with creatinine now improved to baseline off diuretics and with IVF. Cont to hold diuretics for now and monitor. (4) Syncope: (5) SALAS (obstructive sleep apnea): SALAS- states he was on CPAP but [facility] as [facility] was not using much as he should. Agreeable to using CPAP here- ordered during his stay. (6) History of pulmonary embolism: Continue apixaban (7) Hypertension: Chronic, at goal. Continue current management. (8) Paroxysmal atrial fibrillation: Chronic, stable on eliquis. on toprol bid, digoxin- dig level not elevated. (9) Diabetes mellitus, type 2: Chronic and uncontrolled with complications. Currently around goal and being managed by glycemic pharmacist as inpatient. Continue basal bolus insulin. (10) Morbid obesity: Lifestyle changes recommended to lose body fat. (11) Entropion: (12) DVT prophylaxis: Apixaban Full Code Dipso-to [facility] after improvmenet in symptoms. On day of discharge patient was feeling much better and requesting to return home. Postoperative followup with his ophhtalmologist was strongly recommended given new/worsening entropion on the right eye now and irritation with eyes. Use of visine in the hospital helped him [facility] Total Time Total Time Spent Total Time Spent (In Minutes): 60 Discharge Plan Discharge Items Patient Disposition: Personal Group Home Reason For Visit: SYNCOPE, GENERALIZED WEAKNESS Discharge Diagnosis: Ambulatory dysfunction Syncope Orthostatic hypotension Obstructive sleep apnea Acute kidney injury Entropion Condition on Discharge: Good Activity: Resume your previous activity Non-emergency contact: Primary Care Provider Call non-emergency contact if: you have any medication questions, your symptoms worsen and your pain is not controlled Follow-up/Referrals: [facility] [employer] [Primary Care Provider] - Diet: Carb Consistent or DM2 Addtl Attending Provider Instructions: Please take all medications as instructed on discharge list below. Please note that your diuretic medications have been changed/reduced. Therefore it is very important that you take your weight every day and if you find you are gaining weight, especially greater than 5 pounds in 2 days, please notify your editing computer publisher or primary care provider immediately as you may need to increase your dose again. As a result of medication changes it is recommended that you have a basic metabolic panel, nonfasting blood work, in the next 1 to 2 weeks. As a result of your eye irritation, you have been given Visine eyedrops. Please discuss this change with your legal process specialist and follow-up since your surgery in June. It is recommended that you follow-up with your primary care doctor within 1 week of hospital discharge. Important discussion points for this appointment include your ongoing orthostatic hypotension, medication changes with blood work, and overcoming obstacles to seeing your legal process specialist about your eyes. Please continue to pause 30 to 60 seconds every time you change position to allow your body to readjust to the change prior to moving/walking. It was a pleasure taking care of you! Please call if you have any questions or problems. You can reach a [facility] hospitalist on duty at [facility] 24 hours a day by calling [phone]. Take care of yourself. Marina Freeman, [facility] Hospitalist Pending Studies at Discharge: No Stand-Alone Forms: My [facility] Skilled Items Patient informed of condition?: Yes DNR: No Discharge Level of Care: Other Communicable Disease: No Discharge Prognosis: Stable Lines: None Urinary Catheter: No Medications and DC Order Prescriptions: New potassium chloride 20 mEq Tablet,Er Particles/Crystals 20 meq PO QAM Qty: 30 RF: 0 furosemide 40 mg Tablet 40 mg PO QAM Qty: 30 RF: 0 Naphcon-A 0.025-0.3 % Drops 2 drp OPB Q6HWA PRN (Reason: eye irritation) Qty: 15 RF: 0 Continued aspirin [Adult Low Dose Aspirin] 81 mg tablet,delayed release (DR/EC) 81 mg PO DAILY RF: 0 duloxetine 60 mg capsule,delayed release(DR/EC) 60 mg PO DAILY RF: 0 digoxin 125 mcg Tablet 0.125 mg PO DAILY@1800 Qty: 0 RF: 0 allopurinol 300 mg tablet 300 mg PO DAILY RF: 0 omeprazole 20 mg capsule,delayed release(DR/EC) 20 mg PO QAM RF: 0 atorvastatin 20 mg tablet 10 mg PO HS RF: 0 albuterol sulfate 90 mcg/actuation HFA aerosol inhaler 2 puffs INH Q4H PRN (Reason: Shortness Of Breath Or Wheezing) RF: 0 bupropion HCl 150 mg tablet extended release 24 hr 150 mg PO QAM RF: 0 nitroglycerin 0.4 mg tablet, sublingual 0.4 mg sublingual UD PRN (Reason: Chest Pain) RF: 0 Multiple Vitamin-Minerals Tablet 1 tab PO DAILY RF: 0 nystatin 100,000 unit/gram Powder 1 applic TOPICAL BID RF: 0 acetaminophen 325 mg Tablet 650 mg PO Q4H PRN (Reason: FEVER/PAIN) RF: 0 Novolin R Flexpen 100 unit/mL (3 mL) Insulin Pen 10 unit SUBCUT TIDM RF: 0 insulin glargine [Lantus Solostar U-100 Insulin] 100 unit/mL (3 mL) insulin pen 85 unit SC DAILY RF: 0 insulin glargine [Lantus Solostar U-100 Insulin] 100 unit/mL (3 mL) insulin pen 35 unit SC HS RF: 0 apixaban 5 mg Tablet 5 mg PO BID RF: 0 gabapentin 300 mg capsule 300 mg PO Q8H RF: 0 (DME) blood-glucose meter [Contour Next Glucose Meter] Kit See Rx Instructions .Route Qty: 1 RF: 0 (DME) Contour Next Test Strips Strip See Rx Instructions .Route Qty: 50 RF: 3 (DME) lancets [Microlet Lancet] Misc See Rx Instructions .Route Qty: 100 RF: 1 levothyroxine 125 mcg Tablet 250 mcg PO DAILY@0600 RF: 0 cholecalciferol (vitamin D3) [Vitamin D3] 25 mcg (1,000 unit) Tablet 50 mcg PO DAILY RF: 0 sennosides 8.6 mg Capsule 8.6 mg PO BID RF: 0 magnesium oxide 400 mg magnesium Tablet 400 mg PO DAILY RF: 0 metoprolol succinate 50 mg Tablet Extended Release 24 Hr 150 mg PO BID RF: 0 epinephrine 0.3 mg/0.3 mL syringe 0.3 mg IM ONCE PRN (Reason: Allergic Reaction) RF: 0 Discontinued oxybutynin chloride [Ditropan XL] 10 mg tablet extended release 24hr 10 mg PO DAILY RF: 0 meclizine 12.5 mg tablet 12.5 mg PO TID PRN (Reason: Vertigo) RF: 0 potassium chloride [Klor-Con M20] 20 mEq tablet,ER particles/crystals 20 meq PO BID RF: 0 spironolactone [Aldactone] 25 mg tablet 25 mg PO DAILY RF: 0 furosemide 80 mg tablet 80 mg PO BID RF: 0 Refresh Classic (PF) 1.4-0.6 % Dropperette 1 drp OPB Q2H RF: 0 moxifloxacin 0.5 % drops, viscous 1 drp OPB Q4H RF: 0 Vancomycin Fortified Oph Drops 25 mg/ml drops OPB QID RF: 0 Discharge Orders: Discharge Order (Routine); Ordered 12/31/21 Ordered By: Marina Freeman Admission Data Admit Date/Time: 12/28/21 09:54 Attending Provider: Marina Freeman Admit Provider: Sid Leroy [facility] Other Providers: Juan Carbone ; Mio Camarena ; Chava Stephenson ; Dhaval Quiros ; Keith Lambert ; Jcarlos Haider ; Suzanne Simmons ; Harriett Rojas ; Giana Moreno ; Ryland Harmon ; Mohit Newton Other Interventions: Discharge Summary Assessment (RN) Last Done: 12/31/21 13:38
[2021-12-31] MEDS ORDERED: INSULIN GLARGINE SOLOSTAR 100 UNITS/ML 3 ML PEN SC SCH ×2 (21:00)
== END 2021-12-31 14:00 | disposition home or self-care (01) | DRG 312 ==
LOC: ED 05:00 → SUATTDRO 09:54 → EDINP 09:54 → 2N 18:59

== ENCOUNTER 2022-06-15 11:51 | Inpatient (IN) ==
--- NOTE | 2022-06-15 12:23 | Emergency Department Note ---
History of Present Illness General Chief complaint: Altered Mental Status Time Seen by Provider: 06/15/22 12:01 History of Present Illness 72-year-old male presents to the ED with a chief complaint of fever and some lethargy. The patient resides at the [facility]. He was diagnosed with the flu on Thursday. This morning the staff was unable to wake him up and when they checked his vital signs his pulse ox was 85 to 88% on room air. The patient does not use home oxygen. He was transported here by EMS and was given some IV fluids 250 cc normal saline bolus was given because of his his tory of CHF nothing more was given. The patient does have a history of A. fib and is chronically on Eliquis. He does have a history of congestive heart failure as well as chronic kidney disease and diabetes he reports some mild shortness of breath but otherwise no specific complaints. Home Medications Medication Instructions Recorded Confirmed Type digoxin 125 mcg (0.125 mg) tablet 0.125 mg PO DAILY@1800 ##0 07/13/16 12/28/21 History aspirin 81 mg tablet,delayed 81 mg PO DAILY 05/11/18 12/28/21 History release (Adult Low Dose Aspirin) duloxetine 60 mg capsule,delayed 60 mg PO DAILY 08/31/18 12/28/21 History release allopurinol 300 mg tablet 300 mg PO DAILY 05/25/19 12/28/21 History omeprazole 20 mg capsule,delayed 20 mg PO QAM 05/25/19 12/28/21 History release albuterol sulfate 90 mcg/actuation 2 puffs inhalation Q4H PRN 12/14/19 12/28/21 History aerosol inhaler Shortness Of Breath Or Wheezing atorvastatin 20 mg tablet 10 mg PO HS 12/14/19 12/28/21 History bupropion HCl 150 mg 24 hr tablet, 150 mg PO QAM 02/13/20 12/28/21 History extended release multivitamin with minerals 1 tab PO DAILY 06/19/20 12/28/21 History (Multiple Vitamin-Minerals tablet) nitroglycerin 0.4 mg sublingual 0.4 mg sublingual UD PRN Chest Pain 06/19/20 12/28/21 History tablet nystatin 100,000 unit/gram topical 1 applic topical BID 03/04/21 12/28/21 History powder apixaban 5 mg tablet 5 mg PO BID 07/11/21 12/28/21 History gabapentin 300 mg capsule 300 mg PO Q8H 07/27/21 12/28/21 History blood sugar diagnostic (Contour #50 ea 07/31/21 11/13/21 Rx Next Test Strips) blood-glucose meter (Contour Next #1 ea 07/31/21 11/13/21 Rx Glucose Meter kit) lancets (Microlet Lancet) #100 ea 07/31/21 11/13/21 Rx acetaminophen 325 mg tablet 650 mg PO Q4H PRN FEVER/PAIN 08/10/21 12/28/21 History insulin glargine 100 unit/mL (3 35 unit SC HS 08/10/21 12/28/21 History mL) subcutaneous pen (Lantus Solostar U-100 Insulin) insulin glargine 100 unit/mL (3 85 unit SC DAILY 08/10/21 12/28/21 History mL) subcutaneous pen (Lantus Solostar U-100 Insulin) insulin regular human 100 unit/mL 10 unit subcut TIDM 08/10/21 12/28/21 History (3 mL) subcutaneous pen (Novolin R Flexpen) cholecalciferol (vitamin D3) 25 50 mcg PO DAILY 11/01/21 12/28/21 History mcg (1,000 unit) tablet (Vitamin D3) levothyroxine 125 mcg tablet 250 mcg PO DAILY@0600 11/01/21 12/28/21 History magnesium oxide 400 mg PO DAILY 11/13/21 12/28/21 History sennosides 8.6 mg capsule 8.6 mg PO BID 11/13/21 12/28/21 History epinephrine 0.3 mg/0.3 mL 0.3 mg IM ONCE PRN Allergic 12/28/21 12/28/21 History injection syringe Reaction metoprolol succinate 50 mg 150 mg PO BID 12/28/21 12/28/21 History tablet,extended release 24 hr furosemide 40 mg tablet 40 mg PO QAM #30 tabs 12/31/21 Rx naphazoline 0.025 %-pheniramine 2 drp OPB Q6HWA PRN eye irritation 12/31/21 Rx 0.3 % eye drops (Naphcon-A) #15 mL potassium chloride 20 mEq 20 meq PO QAM #30 tabs 12/31/21 Rx tablet,extended release(part/cryst) Allergies Allergy/AdvReac Type Severity Reaction Status Date / Time No Known Allergies Allergy Verified 12/28/21 06:33 Past Med/Surg History Medical History Abnormal chest x-ray 06/18/20 right hilar opacity, f/u recommended Anticoagulant long-term use Arthritis Atrial fibrillation paroxysmal Atrial flutter Bifascicular block CAD (coronary artery disease) Cardiac pacemaker in situ Cardiomyopathy Chronic anticoagulation Chronic diastolic CHF (congestive heart failure) Chronic venous insufficiency CKD (chronic kidney disease) stage 3, GFR 30-59 ml/min Claustrophobia Closed fracture of thyroid cartilage COPD, moderate Depression Diabetes mellitus, type 2 insulin pump Fatty liver Gout Hyperlipidemia Hypertension Hypothyroidism Iatrogenic pulmonary embolism Interstitial lung disease Morbid obesity MRSA infection Nephrolithiasis Nocturnal hypoxemia SALAS (obstructive sleep apnea) Osteoarthritis Paroxysmal atrial fibrillation Prolonged QT interval Pulmonary embolism B/L- 5+ years ago Sarcoidosis possible- evaluated by pulmonary; felt no active sarcoidosis and would not merit steroid therapy given weight/diabetic state. 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 "prior EF of 25% while in aflutter, subsequently normal in NSR" Surgical History H/O cardiac radiofrequency ablation H/O prior ablation treatment History of arthroscopic knee surgery History of bronchoscopy History of cataract surgery local anesthesia only per pt History of cholecystectomy History of extraction of renal calculus History of lung surgery thoracoscopy, right VATS, wedge resection History of umbilical hernia repair Hx of carpal tunnel repair Pacemaker Implanted 02/2017 secondary to Sinus node dysfunction/tachy sherry syndrome/3rd degree AVB [employer] Pacer check 12/24/17 Status post incision and drainage Family History Mother Cancer Social History Smoking Status: Never smoker Second Hand Exposure: No; Hx Alcohol Use: No Hx Substance Use: No Preferred Language: Nepali Communication Ability: Effective Visual Impairment: Limited Hearing Ability: Normal 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 Beliefs That Will Affect Care: None marital status: Single Current Living Situation: [facility] Current Living Situation Comment: [facility] current occupational status: retired How many Children do You have: 1 How many Children do You have Comment: children are not involved with care much per pt Feels Safe at Home: Yes Diet Comment: FLUID RESTRICTION during the past year weight has: other Assistive Devices: Walker Review of Systems A total of 10 systems reviewed and were otherwise negative Physical Exam Vital Signs Vital Signs - 24 hr 06/15/22 12:08 06/15/22 12:07 06/15/22 12:33 Temperature 39.2 C H Temperature Source Oral Pulse Rate 62 97 H Pulse Rate [Apical] Pulse Rhythm Regular Respiratory Rate 32 H 20 Respiratory Effort / Characteristics Non-Labored Spontaneous Respiratory Depth Shallow Respiratory Pattern Tachypnea Blood Pressure 142/71 H Blood Pressure [Right Arm] Blood Pressure Mean 94 Blood Pressure Mean [Right Arm] Blood Pressure Position Lying Pulse Oximetry 84 L 84 L 93 Oxygen Delivery Method Room Air Room Air Nasal Cannula Oxymask Oxygen Flow Rate 0 5 Sepsis Recent Fever Within 48 Hours Yes Sepsis New/Unexplained Change in Mental Status Yes Sepsis Action Taken by Nursing Physician Notified Oxygen Flow Rate - Titration 4 Pulse Oximetry Post Tiitration 94 06/15/22 12:33 06/15/22 12:38 06/15/22 13:09 Temperature Temperature Source Pulse Rate Pulse Rate [Apical] 64 62 64 Pulse Rhythm Respiratory Rate 20 20 18 Respiratory Effort / Characteristics Non-Labored Non-Labored Respiratory Depth Normal Normal Respiratory Pattern Blood Pressure Blood Pressure [Right Arm] 142/71 H 157/78 H 143/64 H Blood Pressure Mean Blood Pressure Mean [Right Arm] 94 104 90 Blood Pressure Position Pulse Oximetry 93 93 91 Oxygen Delivery Method Oxymask Oxymask Oxymask Oxygen Flow Rate 5 5 5 Sepsis Recent Fever Within 48 Hours Sepsis New/Unexplained Change in Mental Status Sepsis Action Taken by Nursing Oxygen Flow Rate - Titration Pulse Oximetry Post Tiitration 06/15/22 13:21 Temperature Temperature Source Pulse Rate Pulse Rate [Apical] 71 Pulse Rhythm Respiratory Rate 20 Respiratory Effort / Characteristics Respiratory Depth Respiratory Pattern Blood Pressure Blood Pressure [Right Arm] 143/64 H Blood Pressure Mean Blood Pressure Mean [Right Arm] 90 Blood Pressure Position Pulse Oximetry 92 Oxygen Delivery Method Oxymask Oxygen Flow Rate 6 Sepsis Recent Fever Within 48 Hours Sepsis New/Unexplained Change in Mental Status Sepsis Action Taken by Nursing Oxygen Flow Rate - Titration Pulse Oximetry Post Tiitration CONSTITUTIONAL/VITAL SIGNS: Reviewed / noted above. GENERAL: Non-toxic in appearance. INTEGUMENTARY: Warm, dry, and [place]. HEAD: Normocephalic. EYES: without scleral icterus or trauma. ENT/OROPHARYNX: clear and moist. LYMPHADENOPATHY/NECK: Is supple without lymphadenopathy or meningismus. RESPIRATORY: Some scattered wheezes on expiration and diminished breath sounds to auscultation bilaterally. No increased work of breathing. CARDIOVASCULAR: Regular rate and rhythm. GI/ABDOMEN: Soft and nontender. No organomegaly or pulsatile mass. EXTREMITIES: Warm and well perfused. BACK: No CVA tenderness. NEUROLOGICAL: Intact without focal deficits. PSYCHIATRIC: normal affect. MUSCULOSKELETAL: Normally developed with good muscle tone. TRIAGE NURSING DOCUMENTATION REVIEWED. Procedures ABG Interpretation ABG Interpretation 1: ABG Results: 7.4 Interpretation: normal Medical Decision Making Differential Diagnosis The differential was considered includes acute myocardial infarction, acute coronary syndrome, myocarditis, pericarditis, pericardial effusions /tamponad, esophageal perforation, pulmonary embolism, pneumonia, pneumothorax, cardiomyopathy, congestive heart, anemia , COPD/asthma exacerbation. Medical Records Attestation: I reviewed the patient's medical records. Home Medications Current Medication List: was personally reviewed by me Laboratory Data Attestation: I reviewed the patient's lab results. Result diagrams: 06/15/22 12:00 06/15/22 12:00 Lab Results 06/15/22 06/15/22 06/15/22 Range/Units 12:00 12:00 12:00 WBC 9.26 (4.8-10.8) K/ul RBC 5.06 (4.63-6.08) M/uL Hgb 13.9 L (14.0-18.0) g/dl Hct 44.4 (40.1-51.0) % MCV 87.7 (80.0-100.0) fL MCH 27.5 (25.0-34.0) pg MCHC 31.3 L (32.0-36.0) g/dL RDW Std Deviation 46.2 (36.4-46.3) fL RDW Coeff of Baldo 14.6 H (11.5-14.5) % Plt Count 155 (130-400) K/uL MPV 12.0 (9.4-12.4) fL Immature Gran % (Auto) 0.3 % Neut % (Auto) 83.2 % Lymph % (Auto) 7.3 % [place] % (Auto) 8.2 % Eos % (Auto) 0.6 % Baso % (Auto) 0.4 % Neut # (Auto) 7.69 H (1.4-6.5) K/uL Lymph # (Auto) 0.68 L (1.2-3.4) K/uL [place] # (Auto) 0.76 (0.24-0.82) K/uL Eos # (Auto) 0.06 (0-0.50) K/uL Baso # (Auto) 0.04 (0-0.2) K/uL Immature Gran # (Auto) 0.03 H (0.00-0.02) K/uL PT (9.0-12.0) Seconds INR (0.9-1.1) APTT (21.0-31.0) Seconds PTT Ratio VBG pH (7.36-7.41) VBG pCO2 (38-50) mmHg VBG pO2 mmHg VBG HCO3 mmol/L VBG O2 Saturation % VBG Base Excess mEq/L Sodium 133 L (136-145) mmol/L Potassium 4.8 (3.5-5.1) mmol/L Chloride 98 (98-107) mmol/L Carbon Dioxide 29 (21-32) mmol/L Anion Gap 6 (3-11) BUN 28 H (6-23) mg/dl Creatinine 1.25 (0.6-1.4) mg/dl Est Cr Clr Drug Dosing 78.5 ml/min Est GFR ( Amer) 67.2 ml/min Est GFR (Non-Af Amer) 58.0 ml/min BUN/Creatinine Ratio 22.4 H (10-20) Glucose 304 H* (70-99(Fasting)) mg/dl Lactate (0.4-2.0) mmol/L Calcium 9.9 (8.5-10.1) mg/dl Magnesium 1.9 (1.7-2.4) mg/dl Total Bilirubin 1.8 H (0.2-1.0) mg/dl Direct Bilirubin 0.5 H (0-0.2) mg/dl AST 28 (13-39) U/L ALT 19 (7-52) U/L Alkaline Phosphatase 113 H (34-104) U/L Troponin I High Sens 13.3 (0-20) pg/ml Total Protein 7.1 (6.0-8.3) gm/dl Albumin 3.8 (3.4-5.0) gm/dl Procalcitonin < 0.05 (0-0.5) ng/ml Urine Color Urine Appearance (Clear) Urine pH (4.5-7.5) Ur Specific [place] (1.000-1.030) Urine Protein (Negative) Urine Glucose (UA) (Negative) Urine Ketones (Negative) Urine Blood (Negative) Urine Nitrite (Negative) Urine Bilirubin (Negative) Urine Urobilinogen (Negative) Ur Leukocyte Esterase (Negative) Urine WBC (Auto) (0-5) /hpf Urine RBC (Auto) (0-4) /hpf U Hyaline Cast (Auto) (0-5) /lpf U Epithel Cells (Auto) (0-5) /lpf Urine Bacteria (Auto) (Negative) Adenovirus (PCR) (NotDetected) B. pertussis DNA (PCR) (NotDetected) B.parapertussis DNA PCR (NotDetected) C. pneumoniae DNA (PCR) (NotDetected) Coronavirus OC43 (PCR) (NotDetected) Coronavirus HKU1 (PCR) (NotDetected) Coronavirus 229E (PCR) (NotDetected) SARS-CoV-2 (PCR) (NotDetected) Coronavirus NL63 (PCR) (NotDetected) Human Metapneumovir PCR (NotDetected) Influenza A Untype (PCR) (NotDetected) Influenza Type B (PCR) (NotDetected) M. pneumoniae (PCR) (NotDetected) Parainfluenza 1 (PCR) (NotDetected) Parainfluenza 2 (PCR) (NotDetected) Parainfluenza 3 (PCR) (NotDetected) Parainfluenza 4 (PCR) (NotDetected) RSV (PCR) (NotDetected) Entero/Rhino (PCR) (NotDetected) 06/15/22 06/15/22 06/15/22 Range/Units 12:00 12:22 12:29 WBC (4.8-10.8) K/ul RBC (4.63-6.08) M/uL Hgb (14.0-18.0) g/dl Hct (40.1-51.0) % MCV (80.0-100.0) fL MCH (25.0-34.0) pg MCHC (32.0-36.0) g/dL RDW Std Deviation (36.4-46.3) fL RDW Coeff of Baldo (11.5-14.5) % Plt Count (130-400) K/uL MPV (9.4-12.4) fL Immature Gran % (Auto) % Neut % (Auto) % Lymph % (Auto) % [place] % (Auto) % Eos % (Auto) % Baso % (Auto) % Neut # (Auto) (1.4-6.5) K/uL Lymph # (Auto) (1.2-3.4) K/uL [place] # (Auto) (0.24-0.82) K/uL Eos # (Auto) (0-0.50) K/uL Baso # (Auto) (0-0.2) K/uL Immature Gran # (Auto) (0.00-0.02) K/uL PT 12.1 H (9.0-12.0) Seconds INR 1.1 (0.9-1.1) APTT 33.9 H (21.0-31.0) Seconds PTT Ratio 1.2 VBG pH (7.36-7.41) VBG pCO2 (38-50) mmHg VBG pO2 mmHg VBG HCO3 mmol/L VBG O2 Saturation % VBG Base Excess mEq/L Sodium (136-145) mmol/L Potassium (3.5-5.1) mmol/L Chloride (98-107) mmol/L Carbon Dioxide (21-32) mmol/L Anion Gap (3-11) BUN (6-23) mg/dl Creatinine (0.6-1.4) mg/dl Est Cr Clr Drug Dosing ml/min Est GFR ( Amer) ml/min Est GFR (Non-Af Amer) ml/min BUN/Creatinine Ratio (10-20) Glucose (70-99(Fasting)) mg/dl Lactate 1.6 (0.4-2.0) mmol/L Calcium (8.5-10.1) mg/dl Magnesium (1.7-2.4) mg/dl Total Bilirubin (0.2-1.0) mg/dl Direct Bilirubin (0-0.2) mg/dl AST (13-39) U/L ALT (7-52) U/L Alkaline Phosphatase (34-104) U/L Troponin I High Sens (0-20) pg/ml Total Protein (6.0-8.3) gm/dl Albumin (3.4-5.0) gm/dl Procalcitonin (0-0.5) ng/ml Urine Color Dark Yellow Urine Appearance Clear (Clear) Urine pH 5.5 (4.5-7.5) Ur Specific [place] 1.020 (1.000-1.030) Urine Protein 2+ H (Negative) Urine Glucose (UA) 1+ H (Negative) Urine Ketones Negative (Negative) Urine Blood 1+ H (Negative) Urine Nitrite Negative (Negative) Urine Bilirubin Negative (Negative) Urine Urobilinogen Negative (Negative) Ur Leukocyte Esterase Negative (Negative) Urine WBC (Auto) 1-5 (0-5) /hpf Urine RBC (Auto) 5-10 H (0-4) /hpf U Hyaline Cast (Auto) 0 (0-5) /lpf U Epithel Cells (Auto) 5-10 H (0-5) /lpf Urine Bacteria (Auto) Negative (Negative) Adenovirus (PCR) (NotDetected) B. pertussis DNA (PCR) (NotDetected) B.parapertussis DNA PCR (NotDetected) C. pneumoniae DNA (PCR) (NotDetected) Coronavirus OC43 (PCR) (NotDetected) Coronavirus HKU1 (PCR) (NotDetected) Coronavirus 229E (PCR) (NotDetected) SARS-CoV-2 (PCR) (NotDetected) Coronavirus NL63 (PCR) (NotDetected) Human Metapneumovir PCR (NotDetected) Influenza A Untype (PCR) (NotDetected) Influenza Type B (PCR) (NotDetected) M. pneumoniae (PCR) (NotDetected) Parainfluenza 1 (PCR) (NotDetected) Parainfluenza 2 (PCR) (NotDetected) Parainfluenza 3 (PCR) (NotDetected) Parainfluenza 4 (PCR) (NotDetected) RSV (PCR) (NotDetected) Entero/Rhino (PCR) (NotDetected) 06/15/22 06/15/22 Range/Units 12:29 12:46 WBC (4.8-10.8) K/ul RBC (4.63-6.08) M/uL Hgb (14.0-18.0) g/dl Hct (40.1-51.0) % MCV (80.0-100.0) fL MCH (25.0-34.0) pg MCHC (32.0-36.0) g/dL RDW Std Deviation (36.4-46.3) fL RDW Coeff of Baldo (11.5-14.5) % Plt Count (130-400) K/uL MPV (9.4-12.4) fL Immature Gran % (Auto) % Neut % (Auto) % Lymph % (Auto) % [place] % (Auto) % Eos % (Auto) % Baso % (Auto) % Neut # (Auto) (1.4-6.5) K/uL Lymph # (Auto) (1.2-3.4) K/uL [place] # (Auto) (0.24-0.82) K/uL Eos # (Auto) (0-0.50) K/uL Baso # (Auto) (0-0.2) K/uL Immature Gran # (Auto) (0.00-0.02) K/uL PT (9.0-12.0) Seconds INR (0.9-1.1) APTT (21.0-31.0) Seconds PTT Ratio VBG pH 7.41 (7.36-7.41) VBG pCO2 39 (38-50) mmHg VBG pO2 65 mmHg VBG HCO3 25 mmol/L VBG O2 Saturation 93.1 % VBG Base Excess 0.1 mEq/L Sodium (136-145) mmol/L Potassium (3.5-5.1) mmol/L Chloride (98-107) mmol/L Carbon Dioxide (21-32) mmol/L Anion Gap (3-11) BUN (6-23) mg/dl Creatinine (0.6-1.4) mg/dl Est Cr Clr Drug Dosing ml/min Est GFR ( Amer) ml/min Est GFR (Non-Af Amer) ml/min BUN/Creatinine Ratio (10-20) Glucose (70-99(Fasting)) mg/dl Lactate (0.4-2.0) mmol/L Calcium (8.5-10.1) mg/dl Magnesium (1.7-2.4) mg/dl Total Bilirubin (0.2-1.0) mg/dl Direct Bilirubin (0-0.2) mg/dl AST (13-39) U/L ALT (7-52) U/L Alkaline Phosphatase (34-104) U/L Troponin I High Sens (0-20) pg/ml Total Protein (6.0-8.3) gm/dl Albumin (3.4-5.0) gm/dl Procalcitonin (0-0.5) ng/ml Urine Color Urine Appearance (Clear) Urine pH (4.5-7.5) Ur Specific [place] (1.000-1.030) Urine Protein (Negative) Urine Glucose (UA) (Negative) Urine Ketones (Negative) Urine Blood (Negative) Urine Nitrite (Negative) Urine Bilirubin (Negative) Urine Urobilinogen (Negative) Ur Leukocyte Esterase (Negative) Urine WBC (Auto) (0-5) /hpf Urine RBC (Auto) (0-4) /hpf U Hyaline Cast (Auto) (0-5) /lpf U Epithel Cells (Auto) (0-5) /lpf Urine Bacteria (Auto) (Negative) Adenovirus (PCR) Not Detected (NotDetected) B. pertussis DNA (PCR) Not Detected (NotDetected) B.parapertussis DNA PCR Not Detected (NotDetected) C. pneumoniae DNA (PCR) Not Detected (NotDetected) Coronavirus OC43 (PCR) Not Detected (NotDetected) Coronavirus HKU1 (PCR) Not Detected (NotDetected) Coronavirus 229E (PCR) Not Detected (NotDetected) SARS-CoV-2 (PCR) Not Detected (NotDetected) Coronavirus NL63 (PCR) Not Detected (NotDetected) Human Metapneumovir PCR Not Detected (NotDetected) Influenza A Untype (PCR) DETECTED A* (NotDetected) Influenza Type B (PCR) Not Detected (NotDetected) M. pneumoniae (PCR) Not Detected (NotDetected) Parainfluenza 1 (PCR) Not Detected (NotDetected) Parainfluenza 2 (PCR) Not Detected (NotDetected) Parainfluenza 3 (PCR) Not Detected (NotDetected) Parainfluenza 4 (PCR) Not Detected (NotDetected) RSV (PCR) Not Detected (NotDetected) Entero/Rhino (PCR) Not Detected (NotDetected) Imaging Data Radiologist's Impression: Chest X-Ray 06/15/22 12:07 XR chest 1V portable HISTORY: Sepsis COMPARISON: Chest 06/11/2022. FINDINGS: No pneumothorax. There is a left-sided dual-chamber pacemaker. The heart remains enlarged. Mild pulmonary edema has progressed. There are few linear densities within the right mid to lower lung zone suggesting subsegmental atelectasis. No pleural effusions. IMPRESSION: Cardiomegaly with interval progression of the mild pulmonary edema. ACT 112: Negative or not required by law. Electronically signed by: Stan Lopez M.D. 06/15/2022 12:21 PM ECG Data Attestation: I personally reviewed and interpreted this ECG as follows: Additional Comments: Twelve-lead EKG: Per my interpretation shows a paced ventricular rhythm at a rate of 60. No ST elevation. No PVCs. Normal QTC. MDM Narrative 72-year-old male presents from [facility] nursing facility with hypoxia in the setting of a recent influenza positive test 4 days ago. He was given 250 cc of normal saline by EMS but because of the history of congestive heart failure no additional fluids were given. His vital signs revealed hypoxia with oxygen saturation here 84% on room air. He was up to 88-90% on nasal cannula oxygen. He does not use home oxygen. EKG shows a paced ventricular rhythm at a rate of 60. A chest x-ray shows findings suggestive of interval progression of mild pulmonary edema. Flu test was positive for influenza A. The patient CBC and chemistry panel was unremarkable. Glucose is 304. Troponin was negative. Procalcitonin is negative. Urine did not show infection. VBG was normal. The patient will be seen by the hospitalist for further evaluation and care due to his hypoxia. Impression & Plan Influenza A, Hypoxia, CHF (congestive heart failure), Acute hyperglycemia Discharge Plan Visit Data Chief Complaint: Altered Mental Status ED Provider: Dandre Hinson Discharge Problem: Influenza A, Hypoxia, CHF (congestive heart failure), Acute hyperglycemia Patient Disposition: Being Evaluated by Hospitalist Forms Stand Alone Forms: My [facility] Prescriptions Prescriptions: No Action aspirin [Adult Low Dose Aspirin] 81 mg tablet,delayed release (DR/EC) 81 mg PO DAILY duloxetine 60 mg capsule,delayed release(DR/EC) 60 mg PO DAILY digoxin 125 mcg Tablet 0.125 mg PO DAILY@1800 Qty: 0 allopurinol 300 mg tablet 300 mg PO DAILY omeprazole 20 mg capsule,delayed release(DR/EC) 20 mg PO QAM atorvastatin 20 mg tablet 10 mg PO HS Rx Instructions: 1/2 tablet dose albuterol sulfate 90 mcg/actuation HFA aerosol inhaler 2 puffs INH Q4H PRN (Reason: Shortness Of Breath Or Wheezing) bupropion HCl 150 mg tablet extended release 24 hr 150 mg PO QAM nitroglycerin 0.4 mg tablet, sublingual 0.4 mg sublingual UD PRN (Reason: Chest Pain) Multiple Vitamin-Minerals Tablet 1 tab PO DAILY nystatin 100,000 unit/gram Powder 1 applic TOPICAL BID acetaminophen 325 mg Tablet 650 mg PO Q4H PRN (Reason: FEVER/PAIN) Novolin R Flexpen 100 unit/mL (3 mL) Insulin Pen 10 unit SUBCUT TIDM Rx Instructions: With sliding scale ACHS insulin glargine [Lantus Solostar U-100 Insulin] 100 unit/mL (3 mL) insulin pen 85 unit SC DAILY insulin glargine [Lantus Solostar U-100 Insulin] 100 unit/mL (3 mL) insulin pen 35 unit SC HS apixaban 5 mg Tablet 5 mg PO BID gabapentin 300 mg capsule 300 mg PO Q8H (DME) blood-glucose meter [Contour Next Glucose Meter] Kit See Rx Instructions .Route Qty: 1 0RF Rx Instructions: Check blood sugar before all meals and at bedtime (DME) Contour Next Test Strips Strip See Rx Instructions .Route Qty: 50 3RF Rx Instructions: Check blood sugar before meals and at bedtime (DME) lancets [Microlet Lancet] Misc See Rx Instructions .Route Qty: 100 1RF Rx Instructions: Monitor blood sugar before meals and at bedtime levothyroxine 125 mcg Tablet 250 mcg PO DAILY@0600 cholecalciferol (vitamin D3) [Vitamin D3] 25 mcg (1,000 unit) Tablet 50 mcg PO DAILY sennosides 8.6 mg Capsule 8.6 mg PO BID magnesium oxide 400 mg magnesium Tablet 400 mg PO DAILY metoprolol succinate 50 mg Tablet Extended Release 24 Hr 150 mg PO BID Rx Instructions: Three tablets twice daily epinephrine 0.3 mg/0.3 mL syringe 0.3 mg IM ONCE PRN (Reason: Allergic Reaction) potassium chloride 20 mEq Tablet,Er Particles/Crystals 20 meq PO QAM Qty: 30 0RF furosemide 40 mg Tablet 40 mg PO QAM Qty: 30 0RF Naphcon-A 0.025-0.3 % Drops 2 drp OPB Q6HWA PRN (Reason: eye irritation) Qty: 15 0RF [facility] -
[2022-06-15 12:40] LABS: Basophils # (auto) 0.04 K/uL (0-0.2); Basophils % (auto) 0.4 %; Eosinophils # (auto) 0.06 K/uL (0-0.50); Eosinophils % (auto) 0.6 %; Hematocrit (blood only) 44.4 % (40.1-51.0); Hemoglobin 13.9 g/dl (14.0-18.0); Immature Granulocytes # (auto) 0.03 K/uL (0.00-0.02); Immature Granulocytes % (auto) 0.3 %; Lymphocytes # (auto) 0.68 K/uL (1.2-3.4); Lymphocytes % (auto) 7.3 %; Mean Corpuscular Hemoglobin 27.5 pg (25.0-34.0); Mean Corpuscular Hgb Conc 31.3 g/dL (32.0-36.0); Mean Corpuscular Volume 87.7 fL (80.0-100.0); Monocytes # (auto) 0.76 K/uL (0.24-0.82); Monocytes % (auto) 8.2 %; Neutrophils # (auto) 7.69 K/uL (1.4-6.5); Neutrophils % (auto) 83.2 %; Platelet Count 155 K/uL (130-400); RDW Coefficient of Variation 14.6 % (11.5-14.5); RDW Standard Deviation 46.2 fL (36.4-46.3); Red Blood Count 5.06 M/uL (4.63-6.08); White Blood Count 9.26 K/ul (4.8-10.8)
[2022-06-15 12:55] LABS: Appearance Urine Clear (Clear); Bacteria Urine Automated Negative (Negative); Bilirubin Urine Negative (Negative); Blood Urine 1+ (Negative); Cast Urine Automated 0 /lpf (0-5); Color Urine Dark Yellow; Glucose Urine UA 1+ (Negative); Ketones Urine Negative (Negative); Leukocyte Esterase Urine Negative (Negative); Nitrite Urine Negative (Negative); Protein Urine 2+ (Negative); Urobilinogen Urine Negative (Negative); pH Urine 5.5 (4.5-7.5)
[2022-06-15 12:55] LABS: INR 1.1 (0.9-1.1); Partial Thromboplastin Ratio 1.2; Partial Thromboplastin Time 33.9 Seconds (21.0-31.0); Prothrombin Time 12.1 Seconds (9.0-12.0)
[2022-06-15 13:05] LABS: Base Excess VBG 0.1 mEq/L; HCO3 VBG 25 mmol/L; Oxygen Saturation VBG 93.1 %; PCO2 VBG 39 mmHg (38-50); PO2 VBG 65 mmHg; pH VBG 7.41 (7.36-7.41)
[2022-06-15 13:10] LABS: Troponin I High Sensitivity 13.3 pg/ml (0-20)
[2022-06-15 13:26] LABS: Albumin Level 3.8 gm/dl (3.4-5.0); BUN Creatinine Ratio 22.4 (10-20); Bilirubin Direct 0.5 mg/dl (0-0.2); Bilirubin,Total 1.8 mg/dl (0.2-1.0); Calcium 9.9 mg/dl (8.5-10.1); Creatinine Clr Calc Pharmacy 78.5 ml/min; Est GFR (African American) 67.2 ml/min; Magnesium 1.9 mg/dl (1.7-2.4); Potassium 4.8 mmol/L (3.5-5.1); Total Protein 7.1 gm/dl (6.0-8.3)
[2022-06-15 13:44] LABS: Bordetella parapertussis PCR Not Detected (NotDetected); Bordetella pertussis PCR Not Detected (NotDetected); Chlamydia pneumoniae PCR Not Detected (NotDetected); Coronavirus 229E PCR Not Detected (NotDetected); Coronavirus CoV-2 (COVID19)PCR Not Detected (NotDetected); Coronavirus HKU1 PCR Not Detected (NotDetected); Coronavirus NL63 PCR Not Detected (NotDetected); Coronavirus OC43PCR Not Detected (NotDetected); Human Metapneumovirus PCR Not Detected (NotDetected); Influenza A NoSubtype PCR DETECTED (NotDetected); Influenza B PCR Not Detected (NotDetected); Mycoplasma pneumoniae PCR Not Detected (NotDetected); Parainfluenza Virus 1 PCR Not Detected (NotDetected); Parainfluenza Virus 2 PCR Not Detected (NotDetected); Parainfluenza Virus 3 PCR Not Detected (NotDetected); Parainfluenza Virus 4 PCR Not Detected (NotDetected); Respiratory Syncytial VirusPCR Not Detected (NotDetected); Rhinovirus/Enterovirus PCR Not Detected (NotDetected)
[2022-06-15] MEDS ORDERED: IBUPROFEN 200 MG TAB PO STA (13:52)
[2022-06-15 13:59] LABS: Adenovirus PCR Not Detected (NotDetected)
--- NOTE | 2022-06-15 14:32 | History & Physical Report ---
Date of Service June 15, 2022 Assessment & Plan (1) Generalized weakness: (2) Influenza A: (3) Hypertension: (4) Pulmonary embolism: (5) Pacemaker: (6) Diabetes mellitus, type 2: (7) Hypothyroidism: (8) Morbid obesity: (9) Interstitial lung disease: (10) CKD (chronic kidney disease) stage 3, GFR 30-59 ml/min: (11) History of lung surgery: (12) COPD, moderate: Plan 72-year-old male from [facility]. influenza A positive. Possible superimposed atypical pneumonia. Lactate, Pro-Sreedhar, and UA negative. Patient also has CHF BNP 340. A. fib on apixaban; will start Olseltamavir and Doxy. Generalized weakness: Influenza A: Tested + on Thu for Influenza A. Received Influenza vaccine and Covid booster 05/03 On Oxymask Was febrile; responded to Motrin; now 38.1 Lactate 1.6; will check again in AM Procalcitonin negative UA negative Blood cultures x2 pending Recent admission for ambulatory dysfunction/weakness; PT/OT Start Oseltamavir 65 mg PO BID x 5 days Will start Doxy IV for possible superimposition/atypical PNA coverage Hypertension: Atrial Fibrillation: Takes metoprolol 150 p.o. twice daily and Digoxin; continue Takes Apiximab; continue; consider alternate as pt increased fall risk with ambulatory dysfx. CHF: Pacemaker: Pacemaker placed 2017 sinus node dysfunction/tachybradycardia syndrome and third-degree AVB no ectopy noted on EKG QTC 485 and Vpaced Takes furosemide 40 mg daily, KCl 20 M EQ for replacement daily Received 250mL bolus via EMS BNP 340 Follows with Jcarlos Haider PA-C Diabetes mellitus type 2: Takes Novolin R 12 Units with meals Takes Glargin 100 units SQ QAM Takes Glargin 55 units SQ QHS Does not take any oral agents Will place on SSI here and consult glycemic pharmacy due to large amounts of insulin use A1C: Morbid obesity: COPD: Has history of sarcoidosis Does not wear CPAP 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; tolerating oxime mask Chest x-ray shows no obvious infiltrations CO2 on VBG 39 Interstitial lung disease: History of lung surgery: Sarcoidosis with history of VATS CKD stage IV: Baseline creatinine 1.4-1.7; in ED 1.25 Hypothyroidism: Takes Synthroid; continue Check TSH Gout: Takes Allopurinol; no sign of acute flare GERD: Takes Omeprazole; continue Depression: Takes Duloxetine and Buproprion; continue No acute needs noted QTc 485 Disposition: PCP: Hernan Khan CODE STATUS: Full Code VTE prophylaxis: On Apixaban I personally was able to review all current laboratory work and diagnostic images obtained in the ED. Additionally, I was able to review the patients past medication reconciliation and history with direct visualization in the patients chart. This patient was seen in collaboration with Dr. Sunshine. Please see his addendum for further details. History of Present Illness Chief Complaint: fever and lethargy Primary Care Provider: Personal Care, [facility] Mr. Marcial Andujar is a 72-year-old male that presented to the [facility] ED via EMS from the [facility] nursing facility after staff stated the patient was unarousable and lethargic this morning. SPO2 was 85 to 88% on room air. . Patient does not wear oxygen at baseline. EMS gave the patient 250 normal saline bolus in route. Per [facility] and with follow-up testing in the ED patient has been positive for influenza A since Thursday, June 11. Per record review he has been vaccinated for influenza and received a COVID booster in 05/03. This patient was recently admitted December 28 through December 31 with ambulatory dysfunction and generalized weakness. Additional past medical history includes SALAS(not on CPAP), history of PE, hypertension, DM type II, CKD IV, chronic diastolic CHF, cardiomyopathy, hypothyroidism, atrial fibrillation (on Eliquis). Patient does follow with Jcarlos Haider PA-C. Most recent echo was December 2021 EF 55 to 60%. In the ED chest x-ray shows some congestive heart failure progression. Procalcitonin negative troponin negative, lactate 1.6. UA negative. VBG appears compensated. Patient was placed on oxime mask currently 6 L with SPO2 92% and patient is febrile T39.2. Patient fever responded to Motrin. When I met with the patient he had just walked back to his bed from the bathroom. He was awake alert oriented x4 however tired, but able to answer most questions appropriately from an orientation standpoint. He was able to state that over the last 2 days he has felt more weak and has not been eating or drinking as well as usual. He also reported feeling wheezy with his respirations. Patient reports not taking his medications this morning. Patient will be admitted for further evaluation and management. Please see A/P for further details. Allergies Allergy/AdvReac Type Severity Reaction Status Date / Time No Known Allergies Allergy Verified 06/15/22 15:07 Home Medications Medication Instructions Recorded Confirmed Type Glargine, Human 100units/Ml 100 unit SC QAM 06/15/22 06/15/22 History Glargine,Human 100units/Ml 55 unit SC HS 06/15/22 06/15/22 History Vancomycin Fortified 10mg/Ml 1 drp OPB QID 06/15/22 06/15/22 History acetaminophen 325 mg tablet 650 mg PO Q4 PRN Fever Or Pain 06/15/22 06/15/22 History (Tylenol) albuterol sulfate 90 mcg/actuation 2 puff inhalation Q4 PRN Shortness 06/15/22 06/15/22 History aerosol inhaler Of Breath Or Wheezing allopurinol 300 mg tablet 300 mg PO DAILY 06/15/22 06/15/22 History apixaban 5 mg tablet 5 mg PO Q12 06/15/22 06/15/22 History aspirin 81 mg tablet,delayed 81 mg PO DAILY 06/15/22 06/15/22 History release atorvastatin 10 mg tablet 10 mg PO DAILY 06/15/22 06/15/22 History bupropion HCl 150 mg 24 hr tablet, 150 mg PO DAILY 06/15/22 06/15/22 History extended release cholecalciferol (vitamin D3) 25 50 mcg PO DAILY 06/15/22 06/15/22 History mcg (1,000 unit) tablet (Vitamin D3) digoxin 125 mcg (0.125 mg) tablet 125 mcg PO DAILY 06/15/22 06/15/22 History duloxetine 60 mg capsule,delayed 60 mg PO DAILY 06/15/22 06/15/22 History release epinephrine 0.3 mg/0.3 mL 0.3 mg IM DIRECTED PRN Allergic 06/15/22 06/15/22 History injection, auto-injector Reaction erythromycin 5 mg/gram (0.5 %) eye 1 applic OPB DIRECTED 06/15/22 06/15/22 History ointment furosemide 80 mg tablet 40 mg PO DAILY 06/15/22 06/15/22 History gabapentin 300 mg capsule 300 mg PO QID 06/15/22 06/15/22 History insulin regular human 100 unit/mL 12 unit subcut ACHS 06/15/22 06/15/22 History injection solution (Novolin R Regular U-100 Insulin) levothyroxine 125 mcg tablet 250 mcg PO DAILY 06/15/22 06/15/22 History lidocaine 5 % topical patch 1 patch topical DAILY 06/15/22 06/15/22 History loratadine 10 mg tablet 20 mg PO DAILY PRN .allergies 06/15/22 06/15/22 History magnesium oxide 420 mg tablet 420 mg PO DAILY 06/15/22 06/15/22 History metolazone 2.5 mg tablet 2.5 mg PO DAILY PRN .weight gain 06/15/22 06/15/22 History of 3 lbs/24 hrs metoprolol succinate 100 mg 150 mg PO BID 06/15/22 06/15/22 History tablet,extended release 24 hr multivitamin 1 tab PO DAILY 06/15/22 06/15/22 History naphazoline 0.025 %-pheniramine 2 drp ophthalmic (eye) Q6 PRN .. 06/15/22 06/15/22 History 0.3 % eye drops (Naphcon-A) nitroglycerin 0.4 mg sublingual 0.4 mg sublingual DIRECTED PRN 06/15/22 06/15/22 History tablet (Nitrostat) Chest Pain nystatin 100,000 unit/gram topical 1 applic topical BID 06/15/22 06/15/22 History powder omeprazole 20 mg capsule,delayed 20 mg PO DAILY 06/15/22 06/15/22 History release polyvinyl alcohol-povidone (PF) 1 drp OPB DIRECTED 06/15/22 06/15/22 History 1.4 %-0.6 % eye drops in a dropperette (Refresh Classic (PF)) potassium chloride 20 mEq 20 meq PO DAILY 06/15/22 06/15/22 History tablet,extended release(part/cryst) sennosides 8.6 mg tablet (senna) 8.6 mg PO BID 06/15/22 06/15/22 History Past Med/Surg History Medical History (Updated 06/15/22 @ 14:30 by RAO Dent) Abnormal chest x-ray 06/18/20 right hilar opacity, f/u recommended Anticoagulant long-term use Arthritis Atrial fibrillation paroxysmal Atrial flutter Bifascicular block CAD (coronary artery disease) Cardiac pacemaker in situ Cardiomyopathy Chronic anticoagulation Chronic diastolic CHF (congestive heart failure) Chronic venous insufficiency CKD (chronic kidney disease) stage 3, GFR 30-59 ml/min Claustrophobia Closed fracture of thyroid cartilage COPD, moderate Depression Diabetes mellitus, type 2 insulin pump Fatty liver Gout Hyperlipidemia Hypertension Hypothyroidism Iatrogenic pulmonary embolism Influenza A Interstitial lung disease Morbid obesity MRSA infection Nephrolithiasis Nocturnal hypoxemia SALAS (obstructive sleep apnea) Osteoarthritis Paroxysmal atrial fibrillation Prolonged QT interval Pulmonary embolism B/L- 5+ years ago Sarcoidosis possible- evaluated by pulmonary; felt no active sarcoidosis and would not merit steroid therapy given weight/diabetic state. 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 "prior EF of 25% while in aflutter, subsequently normal in NSR" Surgical History H/O cardiac radiofrequency ablation H/O prior ablation treatment History of arthroscopic knee surgery History of bronchoscopy History of cataract surgery local anesthesia only per pt History of cholecystectomy History of extraction of renal calculus History of lung surgery thoracoscopy, right VATS, wedge resection History of umbilical hernia repair Hx of carpal tunnel repair Pacemaker Implanted 02/2017 secondary to Sinus node dysfunction/tachy sherry syndrome/3rd degree AVB [employer] Pacer check 12/24/17 Status post incision and drainage Family History Mother Cancer Social History Smoking Status: Never smoker Second Hand Exposure: No; Hx Alcohol Use: No Hx Substance Use: No Preferred Language: Divehi Communication Ability: Effective Visual Impairment: Limited Hearing Ability: Normal Sewer Builder Required: No Beliefs That Will Affect Care: None marital status: Single Current Living Situation: Halfway Current Living Situation Comment: [facility]an Khan current occupational status: retired How many Children do You have: 1 How many Children do You have Comment: children are not involved with care much per pt Other Information That Helps Us Care for You: No Feels Safe at Home: Yes Safety Concerns: Feels Safe At This Time Diet Comment: FLUID RESTRICTION during the past year weight has: other Assistive Devices: Walker Review of Systems Review of Systems: Neuro: (-) Falls, trauma, slurred speech HEENT: (-) SIMPSON, dizziness, dysphagia, visual or auditory changes CV: (-) CP, palpitations, swelling Resp: (+) SOB (+) diaphragmatic use GI: (-) appetite changes, N/V/D, bowel changes : (-) urinary changes Skin: (-) rashes Psych: (-) anxiety, depression Physical Exam Physical Exam: Neuro: AAOx4, lethargic, but arrousable and able to interact and answer questions in a meaningful way. PERRLA, no aphagia, memory changes, CNII-XII grossly intact HEENT: head normocephalic, moist mucus membranes CV: S1/S2, (-) M/G/R, (-) edema, cap refill < 3 seconds Resp: Lungs decreased with anterior respiratory coarseness. GI: Abdomen S/NT/ND, Ax4 bowel sounds, (-) CVA tenderness Musculoskeletal: 5/5 B/L UE strength, 5/5 B/L LE strength. No gait disturbance Skin: (-) rashes , (-) erythema. Psych: euthymic mood Results & Data Results & Data ([facility]) Vital Signs (Past 12 Hours) Vital Signs Temp Pulse Pulse Resp BP BP Pulse Ox 06/15/22 13:21 71 20 143/64 H 92 06/15/22 13:09 64 18 143/64 H 91 06/15/22 12:38 62 20 157/78 H 93 06/15/22 12:33 64 20 142/71 H 93 06/15/22 12:33 97 H 20 93 06/15/22 12:07 84 L 06/15/22 12:08 39.2 C H 62 32 H 142/71 H 84 L O2 Del Method O2 Flow Rate 06/15/22 13:21 Oxymask 6 06/15/22 13:09 Oxymask 5 06/15/22 12:38 Oxymask 5 06/15/22 12:33 Oxymask 5 06/15/22 12:33 Oxymask 5 06/15/22 12:07 Room Air, Nasal Cannula 0 06/15/22 12:08 Room Air Laboratory Results Short CBC 06/15/22 Range/Units 12:00 WBC 9.26 (4.8-10.8) K/ul Hgb 13.9 L (14.0-18.0) g/dl Hct 44.4 (40.1-51.0) % Plt Count 155 (130-400) K/uL BMP 06/15/22 12:00 Sodium 133 L Potassium 4.8 Chloride 98 Carbon Dioxide 29 BUN 28 H Creatinine 1.25 Glucose 304 H* Calcium 9.9 Liver Function 06/15/22 Range/Units 12:00 Total Bilirubin 1.8 H (0.2-1.0) mg/dl Direct Bilirubin 0.5 H (0-0.2) mg/dl AST 28 (13-39) U/L ALT 19 (7-52) U/L Alkaline Phosphatase 113 H (34-104) U/L Albumin 3.8 (3.4-5.0) gm/dl Urine 06/15/22 Range/Units 12:22 Urine Color Dark Yellow Urine Appearance Clear (Clear) Urine pH 5.5 (4.5-7.5) Ur Specific [place] 1.020 (1.000-1.030) Urine Protein 2+ H (Negative) Urine Glucose (UA) 1+ H (Negative) Diagnostic Findings Chest X-Ray 06/15/22 12:07 XR chest 1V portable HISTORY: Sepsis COMPARISON: Chest 06/11/2022. FINDINGS: No pneumothorax. There is a left-sided dual-chamber pacemaker. The heart remains enlarged. Mild pulmonary edema has progressed. There are few linear densities within the right mid to lower lung zone suggesting subsegmental atelectasis. No pleural effusions. IMPRESSION: Cardiomegaly with interval progression of the mild pulmonary edema. ACT 112: Negative or not required by law. Electronically signed by: Stan Lopez M.D. 06/15/2022 12:21 PM Code Status & VTE Plan VTE Prophylaxis Plan VTE Prophylaxis will be ordered: Yes Supervising Physician Co-Signing Physician Notes 71-year-old with history of morbid obesity, HFpEF [TTE F 50 to 60%], SSS status post PPM/PE on anticoagulation, COPD/ILD, SALAS on CPAP, DM 2 on insulin, hypothyroidism, CKD [baseline 1.5-2], chronic anemia presented to ED 06/15 from [facility] d/t being lethargic and SPO2 85 to 88 % on RA. Pt found to have flu at ED, CXR w/ concern of mild pul edema. Get BNP, procal was neg, wbc wnl, febrile, concern of sepsis POS likely 2/2 viral pna vs bacterial superimposition/atypical pna (temp and RR elevated). Will use doxy. Glycemic pharmacy. Replete electrolytes. No ivf. Pt has cough and runny nose, reports going on for 2 days, denies headache/dizziness/chest pain/changes w/ bowel or bladder habit/sorethroat. Not able to comment on sputum. Pt is able to maitain SpO2 of 98% on RA at bedside exam. Continue to monitor O2. On exam: GENERAL: Alert and oriented x3. NAD, on RA. Obese class III. HEENT: No pallor, no icterus. Pupils equal, round and reactive to light. Oral mucosa moist. NECK: No JVD, no neck masses. HEART: S1 and S2 heard. Regular rate and rhythm. No murmur, no gallop. RESPIRATORY SYSTEM: Normal AP diameter. No accessory muscle use. No wheezing, no crackles. ABDOMEN: Soft, bowel sounds present, nontender, no distention. CENTRAL NERVOUS SYSTEM: No facial droop. Speech is clear. Obeys simple commands. Moves extremities. EXTREMITIES: No edema, no erythema seen. I have seen and examined the patient and have discussed the case with the provider above. I agree with the assessment and plan as stated. (1) Diabetes mellitus, type 2 Diabetes mellitus complication detail: without coma Diabetes mellitus complication status: with hypoglycemia Diabetes mellitus shelter insulin use: with terminal manager use Qualified Code(s): E11.649 - Type 2 diabetes mellitus with hypoglycemia without coma; Z79.4 - residential (current) use of insulin (2) CKD (chronic kidney disease) stage 3, GFR 30-59 ml/min Chronic kidney disease stage 3 subtype: unspecified whether 3a or 3b Qualified Code(s): N18.30 - Chronic kidney disease, stage 3 unspecified (3) Hypothyroidism Hypothyroidism type: unspecified Qualified Code(s): E03.9 - Hypothyroidism, unspecified (4) Pulmonary embolism Acute cor pulmonale presence: without acute cor pulmonale Chronicity: chronic Pulmonary embolism type: unspecified Qualified Code(s): I27.82 - Chronic pulmonary embolism (5) Hypertension Hypertension type: unspecified Qualified Code(s): I10 - Essential (primary) hypertension
[2022-06-15] MEDS ORDERED: POLYETHYLENE (MIRALAX) 17 GM PACK PO PRN (15:35)
[2022-06-15] MEDS ORDERED: MAGNESIUM HYDROXIDE SUSP 30 ML UDC PO PRN (15:35)
[2022-06-15] MEDS ORDERED: ONDANSETRON INJ 2 MG/ML 2 ML VIAL IV PRN (15:35)
[2022-06-15] MEDS ORDERED: ALUMINUM/MAGNESIUM SUSP 30 ML UDC PO PRN (15:35)
[2022-06-15] MEDS ORDERED: PHARMACY GLYCEMIC MGMT CONSULT PRN (15:57)
[2022-06-15] MEDS ORDERED: GLUCOSE 40% GEL 15 GM TUBE PO PRN (15:57)
[2022-06-15] MEDS ORDERED: GLUCOSE 10 TAB/TUBE PO PRN (15:57)
[2022-06-15] MEDS ORDERED: GLUCAGON FOR INJ 1 MG VIAL SQ PRN (15:57)
[2022-06-15] MEDS ORDERED: CARBOHYDRATES FOR HYPOGLYCEMIA PO PRN (15:57)
[2022-06-15] MEDS ORDERED: DEXTROSE 50% 50 ML SYRINGE IV PRN (15:57)
[2022-06-15] MEDS ORDERED: LORATADINE 10 MG TAB PO PRN (16:15)
[2022-06-15] MEDS ORDERED: NAPHAZOLIN/PHENIRAMIN OPH SOLN 75 DROPS/5 ML BTL OP PRN (16:15)
[2022-06-15] MEDS ORDERED: ALBUTEROL HFA 8 GM INHALER INH PRN (16:15)
[2022-06-15] MEDS: INSULIN ASPART PER UNIT SC SCH ×2 (17:50→20:36)
[2022-06-15] MEDS: GABAPENTIN 300 MG CAP PO SCH ×2 (17:53→20:19)
[2022-06-15] MEDS: DOXYCYCLINE HYCLATE 100 MG in DEXTROSE 5% 100 ML IV SCH (17:53)
[2022-06-15] MEDS: ARTIFICIAL TEARS OP SCH ×4 (17:54→21:15)
[2022-06-15] MEDS: NYSTATIN POWDER 15GM BTL EXT SCH (20:21)
[2022-06-15] MEDS: SENNA 8.6 MG TAB PO SCH (20:22)
[2022-06-15] MEDS: ACETAMINOPHEN 325 MG TAB PO PRN (20:29)
[2022-06-15] MEDS ORDERED: APIXABAN 5 MG TABLET PO SCH (21:00)
[2022-06-15] MEDS ORDERED: LANTUS PER UNIT CHARGE SQ ONE (21:00)
[2022-06-15] MEDS ORDERED: METOPROLOL SUCC 50MG EXT REL TAB PO SCH (21:00)
[2022-06-15] MEDS ORDERED: LANTUS PER UNIT CHARGE SQ SCH (21:00)
[2022-06-15] MEDS ORDERED: OSELTAMIVIR PHOSPHATE 75 MG CAP PO SCH (21:00)
[2022-06-16] MEDS: ACETAMINOPHEN 325 MG TAB PO PRN (02:30)
[2022-06-16] MEDS ORDERED: ACETAMINOPHEN 1,000 MG/100 ML VIAL IV STA ×2 (02:44→03:57)
[2022-06-16] MEDS ORDERED: ALBUT/IPRATROP 3MG/0.5MG NEB 3 ML VIAL NEB STA ×2 (02:44→13:18)
[2022-06-16] MEDS ORDERED: FUROSEMIDE 40 MG/4 ML VIAL IV ONE (02:45)
[2022-06-16] MEDS ORDERED: MAGNESIUM SULFATE / D5W 1 GM/100 ML BAG IV ONE (02:47)
[2022-06-16] MEDS ORDERED: ALBUT/IPRATROP 3MG/0.5MG NEB 3 ML VIAL ONE (02:57)
[2022-06-16] MEDS ORDERED: methylPREDNISolone 20 MG in SYRINGE 0 ML IV STA (03:20)
[2022-06-16] MEDS ORDERED: PIPERACILLIN/TAZOBACTAM 4.5 GM in DEXTROSE 5% 100 ML IV ONE (03:59)
[2022-06-16 04:04] LABS: BUN Creatinine Ratio 22.7 (10-20); Calcium 9.5 mg/dl (8.5-10.1); Creatinine Clr Calc Pharmacy 57.1 ml/min; Est GFR (African American) 45.7 ml/min; Est GFR (Non-African American) 39.4 ml/min; Phosphorus 3.3 mg/dl (2.5-4.9); Potassium 4.9 mmol/L (3.5-5.1)
--- NOTE | 2022-06-16 04:04 | Communication Note ---
Date of Service: June 16, 2022 2:40 AM Patient febrile, O2 sats 80s on 3 L as per RN. Tachycardic and tachypneic as per RN. Patient lethargic as per RN Complaining of headache. No chest pain complaints. PPE Lethargic, minimal respiratory distress, morbidly obese Decreased breath sounds, occasional expiratory wheezes RRR CXR as per my interpretation : Congestion, cardiomegaly, right lower lobe infiltrate AP Lethargy Multifactorial worsening hypoxemic respiratory failure secondary to decompensated heart failure, Possible COPD exacerbation from influenza/HCAP possible aspiration given lethargy, nausea vomiting symptoms as per H&P Home neuropsychotropic meds contributory Rule out ICH given headache symptoms and Eliquis Rx Supplemental O2 BiPAP Check ABG IV Lasix 1 dose now Solu-Medrol 1 dose, nebs RTC for possible COPD exacerbation Add Zosyn to doxycycline for HCAP, possible aspiration Hold neuropsychotropic meds until patient more awake CT head once respiratory status stable Re: Headache with lethargy, NOAC Rx Hold Eliquis until CT head results known
[2022-06-16 04:07] LABS: Base Excess ABG -1.2 mEq/L (-9-1.8); HCO3 ABG 24 mmol/L (19-24); Oxygen Saturation ABG 95.1 % (90-95); PCO2 ABG 39 mmHg (35-46); PO2 ABG 73 mmHg (80-95); pH ABG 7.39 (7.35-7.45)
[2022-06-16 04:22] LABS: Basophils # (auto) 0.05 K/uL (0-0.2); Basophils % (auto) 0.7 %; Eosinophils # (auto) 0.01 K/uL (0-0.50); Eosinophils % (auto) 0.1 %; Hematocrit (blood only) 41.1 % (40.1-51.0); Hemoglobin 13.3 g/dl (14.0-18.0); Immature Granulocytes # (auto) 0.04 K/uL (0.00-0.02); Immature Granulocytes % (auto) 0.6 %; Lymphocytes # (auto) 0.35 K/uL (1.2-3.4); Mean Corpuscular Hgb Conc 32.4 g/dL (32.0-36.0); Mean Corpuscular Volume 86.5 fL (80.0-100.0); Mean Platelet Volume 11.4 fL (9.4-12.4); Monocytes # (auto) 0.82 K/uL (0.24-0.82); Monocytes % (auto) 11.8 %; Neutrophils # (auto) 5.68 K/uL (1.4-6.5); Neutrophils % (auto) 81.8 %; Platelet Count 147 K/uL (130-400); RDW Coefficient of Variation 14.2 % (11.5-14.5); RDW Standard Deviation 44.9 fL (36.4-46.3); Red Blood Count 4.75 M/uL (4.63-6.08); White Blood Count 6.95 K/ul (4.8-10.8)
[2022-06-16 04:46] LABS: Allen Test POS (Pos)
[2022-06-16] MEDS: ARTIFICIAL TEARS OP SCH ×9 (04:48→21:38)
[2022-06-16] MEDS: DOXYCYCLINE HYCLATE 100 MG in DEXTROSE 5% 100 ML IV SCH ×2 (05:33→18:25)
[2022-06-16] MEDS: LEVOTHYROXINE SODIUM 125 MCG TABLET PO SCH (05:33)
[2022-06-16] MEDS ORDERED: ALBUMIN 25% 100 mL 25 GM/100 ML VIAL IV ONE (06:30)
[2022-06-16 06:41] LABS: Estimated Average Glucose 286 mg/dl; Hemoglobin A1C 11.6 % (4.5-5.6)
[2022-06-16] MEDS: LEVALBUTEROL 1.25MG/0.5ML NEB INH SCH ×4 (07:27→19:55)
[2022-06-16] MEDS: IPRATROPIUM BROMIDE NEB SOLN 0.02% 2.5 ML VIAL INH SCH ×4 (07:27→19:55)
--- NOTE | 2022-06-16 07:28 | CT Scan Report ---
CT OF THE HEAD WITHOUT CONTRAST CLINICAL HISTORY: Headache. Altered mental status. COMPARISON STUDY: Head CT December 25, 2021. CT DOSE: 1228.53 mGy.cm TECHNIQUE: Helical axial images of the head were obtained without IV contrast. Automated exposure con trol was utilized for the study. A dose lowering technique was utilized adhering to the principles o f ALARA. FINDINGS: This study is mildly compromised by motion artifact. No acute intracranial hemorrhage, midl ine shift or mass effect is present. The ventricular system is unremarkable. The basal cisterns are p atent. No extra-axial collections are present. There are no findings to suggest acute dural sinus thr ombosis or acute territorial infarct. No significant calvarial abnormalities are present. Visualized portions of the sinuses and mastoid air cells are clear. IMPRESSION: No acute intracranial findings. Exam mildly compromised by motion artifact. ACT 112: Negative or not required by law. Electronically signed by: Basil Hills M.D. 06/16/2022 7:27 AM
[2022-06-16] MEDS ORDERED: LANTUS PER UNIT CHARGE SQ ONE ×3 (08:30→09:00)
[2022-06-16] MEDS: INSULIN ASPART PER UNIT SC SCH ×4 (08:37→23:53)
[2022-06-16] MEDS: ERYTHROMYCIN OP OINT 5 MG/GM 3.5 GM TUBE OPB SCH (08:41)
[2022-06-16] MEDS: NYSTATIN POWDER 15GM BTL EXT SCH ×2 (08:41→20:40)
[2022-06-16] MEDS ORDERED: buPROPion XL 150 MG TABCR PO SCH (09:00)
[2022-06-16] MEDS ORDERED: XOPENEX/ATROVENT 1.25mg/0.5MG NEB COMBO NEB SCH (09:00)
[2022-06-16] MEDS ORDERED: CHOLECALCIFEROL 1,000 UNITS 25 MCG TAB PO SCH (09:00)
[2022-06-16] MEDS ORDERED: LIDOCAINE 5% 1 PATCH TD SCH (09:00)
[2022-06-16] MEDS ORDERED: FUROSEMIDE 40 MG TAB PO SCH (09:00)
[2022-06-16] MEDS: METOPROLOL SUCC 25MG EXT REL TAB PO SCH ×2 (10:18→20:40)
[2022-06-16] MEDS: MAGNESIUM OXIDE 400 MG TAB PO SCH (10:19)
[2022-06-16] MEDS: OSELTAMIVIR PHOSPHATE SUSP 30 MG/5 ML UDP PO SCH ×2 (10:19→21:38)
[2022-06-16] MEDS: SENNA 8.6 MG TAB PO SCH ×2 (10:20→20:41)
[2022-06-16] MEDS: PANTOprazole 40 MG TAB PO SCH (10:20)
[2022-06-16] MEDS: ASPIRIN 81 MG ECTAB PO SCH (10:21)
[2022-06-16] MEDS: allopurinoL 300 MG TAB PO SCH (10:21)
[2022-06-16] MEDS: MULTIVITAMIN TAB PO SCH (10:21)
[2022-06-16] MEDS: DULoxetine HCL 60 MG CAP PO SCH (10:21)
[2022-06-16] MEDS: POTASSIUM CHLORIDE CRTAB 20 MEQ TABCR PO SCH (10:21)
[2022-06-16] MEDS: ATORVASTATIN 10 MG TAB PO SCH (10:22)
--- NOTE | 2022-06-16 10:59 | Pharmacy Report ---
Pharmacy Glycemic Short Note 2 - Date of Service June 16, 2022 - Glycemic Short BSG Results (Last 24 hours): 06/15/22 06/15/22 06/15/22 12:00 16:21 20:32 Glucose 304 H* POC Glucose 255 H 190 H 06/16/22 06/16/22 06/16/22 03:18 03:25 08:04 Glucose 190 H POC Glucose 179 H 238 H 06/16/22 10:41 Glucose POC Glucose 236 H OUTPATIENT ANTIDIABETIC REGIMEN: * Lantus 100 units SQ QAM & 55 units HS * Novolin R 12 unts SQ ACHS ASSESSMENT: * Received 40 units basal insulin yesterday evening on admission. Unsure of morning basal dose given prior to admission. Fasting BSG was 238 mg/dl this morning. Could be elevated due to one dose of Solumedrol. Patient known to glycemic service on previous admissions to receive 100 - 120 units of basal insulin. NPO today therefore received a one time basal dose of 60 units this morning. On CF of 10 and Carb ratio of 3 * Patient oxygen status worsening, transferred to the ICU. Plan to start Insulin drip per ICU protocol this afternoon. PLAN FOR INPATIENT GLYCEMIC CONTROL: * Hold outpatient oral diabetes medications * Initiating insulin infusion * Bolus insulin - Follow insulin infusion calculator
[2022-06-16] MEDS ORDERED: FUROSEMIDE INJ 20 MG/2 ML VIAL IV ONE (11:04)
[2022-06-16] MEDS: PIPERACILLIN/TAZOBACTAM 4.5 GM in DEXTROSE 5% 100 ML IV SCH ×2 (11:26→18:25)
--- NOTE | 2022-06-16 11:34 | XRay Report ---
XR chest 1V portable CLINICAL HISTORY: low o2 TECHNIQUE: Single frontal radiograph of the chest was obtained. Comparison: Comparison is made to chest radiograph 06/15/2022 FINDINGS: Dual lead pacemaker is seen. Cardiomegaly is noted. There is prominence and cephalization of the vasc ulature with Skyla B lines seen. No evidence of pleural effusion or pneumothorax. Old healed rib fra ctures seen. IMPRESSION: Cardiomegaly with increased pulmonary edema which is now moderate. ACT 112: Negative or not required by law. Electronically signed by: Benji Correa M.D. 06/16/2022 11:33 AM
--- NOTE | 2022-06-16 12:30 | Cardiology Consultation ---
Date of Consultation June 16, 2022 Assessment & Plan (1) Respiratory failure with hypoxia: (2) Influenza A: (3) Chronic diastolic CHF (congestive heart failure): (4) SALAS (obstructive sleep apnea): (5) Morbid obesity: (6) Atrial fibrillation: (7) Pacemaker: Plan Patient is a complex 72-year-old male referral urgently with signs and symptoms of hypoxic respiratory failure. Patient admitted on 06/15/2022 with lethargy and hypoxia with recent history of influenza A. Evidence of right heart failure present currently with mild left heart failure intermittently on x-ray. Underlying issues include persistent atrial fibrillation with tachybradycardia syndrome status post pacemaker, morbid obesity. Patient currently demonstrating declining respiratory status despite treatments. Pulmonology/ICU insurance verifier consulted with anticipated transfer possible intubation. Suspect combination of acute viral pneumonitis superimposed on worsening right heart failure/biventricular heart failure Agree with additional diuretics and will need to follow renal function closely. This may improve with better oxygenation/perfusion Will follow as course progress History of Present Illness Reason for Consultation: Hypoxic respiratory failure Requesting Physician: Dr. Sunshine Attending Physician: Sanford Sunshine MD History of Present Illness Patient is a 72-year-old male with ongoing cardiac concerns 1. Past paroxysmal now approaching persistent atrial fibrillation. Prior flutter ablation 2012 2. Tachybradycardia syndrome status post dual-chamber pacemaker insertion September 2016, [employer] Advisa DR HOLT A2 3. Past tachycardia mediated cardiomyopathy with return to normal LV function 4. Hypertensive heart disease with diastolic/right heart failure, on furosemide. prn metolazone 5. Interstitial lung disease/obstructive sleep apnea/Possible amiodarone toxicity per record 6. Morbid obesity Patient is referred for further evaluation with notable ER visit on 06 12 and subsequent return with hospitalization on 06 15 for increasing hypoxia lethargy and febrile illness. Patient notably positive for influenza A recently. Riders patient had increasing lethargy and hypoxia overnight placed on BiPAP and received a single dose of IV furosemide 40 mg due to concerns. Patient now very lethargic and unable to answer questions on BiPAP. Tachypneic with marginal oxygenation Allergies Allergy/AdvReac Type Severity Reaction Status Date / Time No Known Allergies Allergy Verified 06/15/22 15:07 Home Medications Medication Instructions Recorded Confirmed Type Glargine, Human 100units/Ml 100 unit SC QAM 06/15/22 06/15/22 History Glargine,Human 100units/Ml 55 unit SC HS 06/15/22 06/15/22 History Vancomycin Fortified 10mg/Ml 1 drp OPB QID 06/15/22 06/15/22 History acetaminophen 325 mg tablet 650 mg PO Q4 PRN Fever Or Pain 06/15/22 06/15/22 History (Tylenol) albuterol sulfate 90 mcg/actuation 2 puff inhalation Q4 PRN Shortness 06/15/22 06/15/22 History aerosol inhaler Of Breath Or Wheezing allopurinol 300 mg tablet 300 mg PO DAILY 06/15/22 06/15/22 History apixaban 5 mg tablet 5 mg PO Q12 06/15/22 06/15/22 History aspirin 81 mg tablet,delayed 81 mg PO DAILY 06/15/22 06/15/22 History release atorvastatin 10 mg tablet 10 mg PO DAILY 06/15/22 06/15/22 History bupropion HCl 150 mg 24 hr tablet, 150 mg PO DAILY 06/15/22 06/15/22 History extended release cholecalciferol (vitamin D3) 25 50 mcg PO DAILY 06/15/22 06/15/22 History mcg (1,000 unit) tablet (Vitamin D3) digoxin 125 mcg (0.125 mg) tablet 125 mcg PO DAILY 06/15/22 06/15/22 History duloxetine 60 mg capsule,delayed 60 mg PO DAILY 06/15/22 06/15/22 History release epinephrine 0.3 mg/0.3 mL 0.3 mg IM DIRECTED PRN Allergic 06/15/22 06/15/22 History injection, auto-injector Reaction erythromycin 5 mg/gram (0.5 %) eye 1 applic OPB DIRECTED 06/15/22 06/15/22 History ointment furosemide 80 mg tablet 40 mg PO DAILY 06/15/22 06/15/22 History gabapentin 300 mg capsule 300 mg PO QID 06/15/22 06/15/22 History insulin regular human 100 unit/mL 12 unit subcut ACHS 06/15/22 06/15/22 History injection solution (Novolin R Regular U-100 Insulin) levothyroxine 125 mcg tablet 250 mcg PO DAILY 06/15/22 06/15/22 History lidocaine 5 % topical patch 1 patch topical DAILY 06/15/22 06/15/22 History loratadine 10 mg tablet 20 mg PO DAILY PRN .allergies 06/15/22 06/15/22 History magnesium oxide 420 mg tablet 420 mg PO DAILY 06/15/22 06/15/22 History metolazone 2.5 mg tablet 2.5 mg PO DAILY PRN .weight gain 06/15/22 06/15/22 History of 3 lbs/24 hrs metoprolol succinate 100 mg 150 mg PO BID 06/15/22 06/15/22 History tablet,extended release 24 hr multivitamin 1 tab PO DAILY 06/15/22 06/15/22 History naphazoline 0.025 %-pheniramine 2 drp ophthalmic (eye) Q6 PRN .. 06/15/22 06/15/22 History 0.3 % eye drops (Naphcon-A) nitroglycerin 0.4 mg sublingual 0.4 mg sublingual DIRECTED PRN 06/15/22 06/15/22 History tablet (Nitrostat) Chest Pain nystatin 100,000 unit/gram topical 1 applic topical BID 06/15/22 06/15/22 Hi story powder omeprazole 20 mg capsule,delayed 20 mg PO DAILY 06/15/22 06/15/22 History release polyvinyl alcohol-povidone (PF) 1 drp OPB DIRECTED 06/15/22 06/15/22 History 1.4 %-0.6 % eye drops in a dropperette (Refresh Classic (PF)) potassium chloride 20 mEq 20 meq PO DAILY 06/15/22 06/15/22 History tablet,extended release(part/cryst) sennosides 8.6 mg tablet (senna) 8.6 mg PO BID 06/15/22 06/15/22 History Patient History Medical History (Updated 06/16/22 @ 13:00 by Chava Stephenson MD) Abnormal chest x-ray 06/18/20 right hilar opacity, f/u recommended Anticoagulant long-term use Arthritis Atrial fibrillation paroxysmal Atrial flutter Bifascicular block CAD (coronary artery disease) Cardiac pacemaker in situ Cardiomyopathy Chronic anticoagulation Chronic diastolic CHF (congestive heart failure) Chronic venous insufficiency CKD (chronic kidney disease) stage 3, GFR 30-59 ml/min Claustrophobia Closed fracture of thyroid cartilage COPD, moderate Depression Diabetes mellitus, type 2 insulin pump Fatty liver Gout Hyperlipidemia Hypertension Hypothyroidism Iatrogenic pulmonary embolism Influenza A Interstitial lung disease Morbid obesity MRSA infection Nephrolithiasis Nocturnal hypoxemia SALAS (obstructive sleep apnea) Osteoarthritis Paroxysmal atrial fibrillation Prolonged QT interval Pulmonary embolism B/L- 5+ years ago Sarcoidosis possible- evaluated by pulmonary; felt no active sarcoidosis and would not merit steroid therapy given weight/diabetic state. 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 "prior EF of 25% while in aflutter, subsequently normal in NSR" Surgical History H/O cardiac radiofrequency ablation H/O prior ablation treatment History of arthroscopic knee surgery History of bronchoscopy History of cataract surgery local anesthesia only per pt History of cholecystectomy History of extraction of renal calculus History of lung surgery thoracoscopy, right VATS, wedge resection History of umbilical hernia repair Hx of carpal tunnel repair Pacemaker Implanted 02/2017 secondary to Sinus node dysfunction/tachy sherry syndrome/3rd degree AVB [employer] Pacer check 12/24/17 Status post incision and drainage Family History Mother Cancer Social History Smoking Status: Never smoker Second Hand Exposure: No; Hx Alcohol Use: No Hx Substance Use: No Preferred Language: Azeri Communication Ability: Effective Visual Impairment: Limited Hearing Ability: Normal Title Department Manager Required: No Beliefs That Will Affect Care: None marital status: Single Current Living Situation: [facility] Current Living Situation Comment: [facility] current occupational status: retired How many Children do You have: 1 How many Children do You have Comment: children are not involved with care much per pt Other Information That Helps Us Care for You: No Feels Safe at Home: Yes Safety Concerns: Feels Safe At This Time Diet Comment: FLUID RESTRICTION during the past year weight has: other Assistive Devices: Walker Review of Systems Review of Systems: Unobtainable due to reduced consciousness Physical Exam Constitutional: + morbidly obese and + lethargic Patient is tachypneic, wearing BiPAP Eyes: PERRL, conjunctivae normal, anicteric sclerae ENMT: external ear and nose normal, oropharynx normal Neck: trachea midline, no thyromegaly + thick neck Cardiovascular: Rate/Rhythm: + irregularly irregular Heart Sounds: no murmur Extremities: + edema (2-3+ diffusely extending to post thigh) Chest (Breasts): Chest: + pacemaker Gastrointestinal (Abdomen): Percussion/Palpation: abdomen soft Results & Data ([facility]) Vital Signs (Past 12 Hours) Vital Signs Temp Pulse Pulse Resp BP Pulse Ox O2 Del Method 06/16/22 12:04 37.6 C H 60 36 H 143/79 H 97 BiPAP 06/16/22 11:32 62 42 H 98 06/16/22 11:32 62 42 H 98 BiPAP 06/16/22 10:35 36.9 C 62 30 H 127/85 96 BiPAP 06/16/22 08:35 36.7 C 70 36 H 122/71 94 BiPAP 06/16/22 07:33 BiPAP 06/16/22 07:32 37.3 C 70 35 H 117/69 96 BiPAP 06/16/22 07:28 70 35 H 95 BiPAP 06/16/22 06:20 37.5 C 61 30 H 105/61 94 BiPAP 06/16/22 05:29 38.4 C H 64 34 H 105/59 L 95 BiPAP 06/16/22 04:55 37.9 C H 60 32 H 135/71 96 BiPAP 06/16/22 03:41 39.4 C H 60 35 H 128/67 95 BiPAP 06/16/22 03:31 65 30 H 89 L Oxymask 06/16/22 03:26 60 35 H 96 06/16/22 02:41 93 Oxymask 06/16/22 02:12 39.3 C H 60 32 H 138/69 83 L Nasal Cannula O2 Flow Rate FiO2 06/16/22 12:04 45 06/16/22 11:32 40 06/16/22 11:32 50 06/16/22 10:35 40 06/16/22 08:35 40 06/16/22 07:33 40 06/16/22 07:32 40 06/16/22 07:28 40 06/16/22 06:20 40 06/16/22 05:29 40 06/16/22 04:55 40 06/16/22 03:41 40 06/16/22 03:31 8 06/16/22 03:26 40 06/16/22 02:41 8 06/16/22 02:12 3 Laboratory Results Laboratory Results - last 24 hr 06/15/22 06/15/22 06/15/22 12:00 12:00 12:00 WBC RBC Hgb Hct MCV MCH MCHC RDW Std Deviation RDW Coeff of Baldo Plt Count MPV Immature Gran % (Auto) Neut % (Auto) Lymph % (Auto) [place] % (Auto) Eos % (Auto) Baso % (Auto) Neut # (Auto) Lymph # (Auto) [place] # (Auto) Eos # (Auto) Baso # (Auto) Immature Gran # (Auto) PT 12.1 H INR 1.1 APTT 33.9 H PTT Ratio 1.2 ABG pH ABG pCO2 ABG pO2 ABG HCO3 ABG O2 Saturation ABG Base Excess Sam Test VBG pH VBG pCO2 VBG pO2 VBG HCO3 VBG O2 Saturation VBG Base Excess Oxygen Given Sodium 133 L Potassium 4.8 Chloride 98 Carbon Dioxide 29 Anion Gap 6 BUN 28 H Creatinine 1.25 Est Cr Clr Drug Dosing 78.5 Est GFR ( Amer) 67.2 Est GFR (Non-Af Amer) 58.0 BUN/Creatinine Ratio 22.4 H Glucose 304 H* POC Glucose Estimat Average Glucose Hemoglobin A1c Lactate Calcium 9.9 Phosphorus Magnesium 1.9 Total Bilirubin 1.8 H Direct Bilirubin 0.5 H AST 28 ALT 19 Alkaline Phosphatase 113 H Ammonia Troponin I High Sens 13.3 B-Natriuretic Peptide Total Protein 7.1 Albumin 3.8 Procalcitonin < 0.05 Urine Color Urine Appearance Urine pH Ur Specific [place] Urine Protein Urine Glucose (UA) Urine Ketones Urine Blood Urine Nitrite Urine Bilirubin Urine Urobilinogen Ur Leukocyte Esterase Urine WBC (Auto) Urine RBC (Auto) U Hyaline Cast (Auto) U Epithel Cells (Auto) Urine Bacteria (Auto) Nasal Screen MRSA (PCR) Digoxin Adenovirus (PCR) B. pertussis DNA (PCR) B.parapertussis DNA PCR C. pneumoniae DNA (PCR) Coronavirus OC43 (PCR) Coronavirus HKU1 (PCR) Coronavirus 229E (PCR) SARS-CoV-2 (PCR) Coronavirus NL63 (PCR) Human Metapneumovir PCR Influenza A Untype (PCR) Influenza Type B (PCR) M. pneumoniae (PCR) Parainfluenza 1 (PCR) Parainfluenza 2 (PCR) Parainfluenza 3 (PCR) Parainfluenza 4 (PCR) RSV (PCR) Entero/Rhino (PCR) 06/15/22 06/15/22 06/15/22 12:22 12:29 12:29 WBC RBC Hgb Hct MCV MCH MCHC RDW Std Deviation RDW Coeff of Baldo Plt Count MPV Immature Gran % (Auto) Neut % (Auto) Lymph % (Auto) [place] % (Auto) Eos % (Auto) Baso % (Auto) Neut # (Auto) Lymph # (Auto) [place] # (Auto) Eos # (Auto) Baso # (Auto) Immature Gran # (Auto) PT INR APTT PTT Ratio ABG pH ABG pCO2 ABG pO2 ABG HCO3 ABG O2 Saturation ABG Base Excess Sam Test VBG pH VBG pCO2 VBG pO2 VBG HCO3 VBG O2 Saturation VBG Base Excess Oxygen Given Sodium Potassium Chloride Carbon Dioxide Anion Gap BUN Creatinine Est Cr Clr Drug Dosing Est GFR ( Amer) Est GFR (Non-Af Amer) BUN/Creatinine Ratio Glucose POC Glucose Estimat Average Glucose Hemoglobin A1c Lactate 1.6 Calcium Phosphorus Magnesium Total Bilirubin Direct Bilirubin AST ALT Alkaline Phosphatase Ammonia Troponin I High Sens B-Natriuretic Peptide Total Protein Albumin Procalcitonin Urine Color Dark Yellow Urine Appearance Clear Urine pH 5.5 Ur Specific [place] 1.020 Urine Protein 2+ H Urine Glucose (UA) 1+ H Urine Ketones Negative Urine Blood 1+ H Urine Nitrite Negative Urine Bilirubin Negative Urine Urobilinogen Negative Ur Leukocyte Esterase Negative Urine WBC (Auto) 1-5 Urine RBC (Auto) 5-10 H U Hyaline Cast (Auto) 0 U Epithel Cells (Auto) 5-10 H Urine Bacteria (Auto) Negative Nasal Screen MRSA (PCR) Digoxin Adenovirus (PCR) Not Detected B. pertussis DNA (PCR) Not Detected B.parapertussis DNA PCR Not Detected C. pneumoniae DNA (PCR) Not Detected Coronavirus OC43 (PCR) Not Detected Coronavirus HKU1 (PCR) Not Detected Coronavirus 229E (PCR) Not Detected SARS-CoV-2 (PCR) Not Detected Coronavirus NL63 (PCR) Not Detected Human Metapneumovir PCR Not Detected Influenza A Untype (PCR) DETECTED A* Influenza Type B (PCR) Not Detected M. pneumoniae (PCR) Not Detected Parainfluenza 1 (PCR) Not Detected Parainfluenza 2 (PCR) Not Detected Parainfluenza 3 (PCR) Not Detected Parainfluenza 4 (PCR) Not Detected RSV (PCR) Not Detected Entero/Rhino (PCR) Not Detected 06/15/22 06/15/22 06/15/22 12:29 12:46 16:21 WBC RBC Hgb Hct MCV MCH MCHC RDW Std Deviation RDW Coeff of Baldo Plt Count MPV Immature Gran % (Auto) Neut % (Auto) Lymph % (Auto) [place] % (Auto) Eos % (Auto) Baso % (Auto) Neut # (Auto) Lymph # (Auto) [place] # (Auto) Eos # (Auto) Baso # (Auto) Immature Gran # (Auto) PT INR APTT PTT Ratio ABG pH ABG pCO2 ABG pO2 ABG HCO3 ABG O2 Saturation ABG Base Excess Sam Test VBG pH 7.41 VBG pCO2 39 VBG pO2 65 VBG HCO3 25 VBG O2 Saturation 93.1 VBG Base Excess 0.1 Oxygen Given Sodium Potassium Chloride Carbon Dioxide Anion Gap BUN Creatinine Est Cr Clr Drug Dosing Est GFR ( Amer) Est GFR (Non-Af Amer) BUN/Creatinine Ratio Glucose POC Glucose 255 H Estimat Average Glucose Hemoglobin A1c Lactate Calcium Phosphorus Magnesium Total Bilirubin Direct Bilirubin AST ALT Alkaline Phosphatase Ammonia Troponin I High Sens B-Natriuretic Peptide 340 H Total Protein Albumin Procalcitonin Urine Color Urine Appearance Urine pH Ur Specific [place] Urine Protein Urine Glucose (UA) Urine Ketones Urine Blood Urine Nitrite Urine Bilirubin Urine Urobilinogen Ur Leukocyte Esterase Urine WBC (Auto) Urine RBC (Auto) U Hyaline Cast (Auto) U Epithel Cells (Auto) Urine Bacteria (Auto) Nasal Screen MRSA (PCR) Digoxin Adenovirus (PCR) B. pertussis DNA (PCR) B.parapertussis DNA PCR C. pneumoniae DNA (PCR) Coronavirus OC43 (PCR) Coronavirus HKU1 (PCR) Coronavirus 229E (PCR) SARS-CoV-2 (PCR) Coronavirus NL63 (PCR) Human Metapneumovir PCR Influenza A Untype (PCR) Influenza Type B (PCR) M. pneumoniae (PCR) Parainfluenza 1 (PCR) Parainfluenza 2 (PCR) Parainfluenza 3 (PCR) Parainfluenza 4 (PCR) RSV (PCR) Entero/Rhino (PCR) 06/15/22 06/15/22 06/16/22 18:00 20:32 03:18 WBC RBC Hgb Hct MCV MCH MCHC RDW Std Deviation RDW Coeff of Baldo Plt Count MPV Immature Gran % (Auto) Neut % (Auto) Lymph % (Auto) [place] % (Auto) Eos % (Auto) Baso % (Auto) Neut # (Auto) Lymph # (Auto) [place] # (Auto) Eos # (Auto) Baso # (Auto) Immature Gran # (Auto) PT INR APTT PTT Ratio ABG pH ABG pCO2 ABG pO2 ABG HCO3 ABG O2 Saturation ABG Base Excess Sam Test VBG pH VBG pCO2 VBG pO2 VBG HCO3 VBG O2 Saturation VBG Base Excess Oxygen Given Sodium Potassium Chloride Carbon Dioxide Anion Gap BUN Creatinine Est Cr Clr Drug Dosing Est GFR ( Amer) Est GFR (Non-Af Amer) BUN/Creatinine Ratio Glucose POC Glucose 190 H 179 H Estimat Average Glucose Hemoglobin A1c Lactate Calcium Phosphorus Magnesium Total Bilirubin Direct Bilirubin AST ALT Alkaline Phosphatase Ammonia Troponin I High Sens B-Natriuretic Peptide Total Protein Albumin Procalcitonin Urine Color Urine Appearance Urine pH Ur Specific [place] Urine Protein Urine Glucose (UA) Urine Ketones Urine Blood Urine Nitrite Urine Bilirubin Urine Urobilinogen Ur Leukocyte Esterase Urine WBC (Auto) Urine RBC (Auto) U Hyaline Cast (Auto) U Epithel Cells (Auto) Urine Bacteria (Auto) Nasal Screen MRSA (PCR) Negative Digoxin Adenovirus (PCR) B. pertussis DNA (PCR) B.parapertussis DNA PCR C. pneumoniae DNA (PCR) Coronavirus OC43 (PCR) Coronavirus HKU1 (PCR) Coronavirus 229E (PCR) SARS-CoV-2 (PCR) Coronavirus NL63 (PCR) Human Metapneumovir PCR Influenza A Untype (PCR) Influenza Type B (PCR) M. pneumoniae (PCR) Parainfluenza 1 (PCR) Parainfluenza 2 (PCR) Parainfluenza 3 (PCR) Parainfluenza 4 (PCR) RSV (PCR) Entero/Rhino (PCR) 06/16/22 06/16/22 06/16/22 03:25 03:25 03:25 WBC 6.95 RBC 4.75 Hgb 13.3 L Hct 41.1 MCV 86.5 MCH 28.0 MCHC 32.4 RDW Std Deviation 44.9 RDW Coeff of Baldo 14.2 Plt Count 147 MPV 11.4 Immature Gran % (Auto) 0.6 Neut % (Auto) 81.8 Lymph % (Auto) 5.0 [place] % (Auto) 11.8 Eos % (Auto) 0.1 Baso % (Auto) 0.7 Neut # (Auto) 5.68 Lymph # (Auto) 0.35 L [place] # (Auto) 0.82 Eos # (Auto) 0.01 Baso # (Auto) 0.05 Immature Gran # (Auto) 0.04 H PT INR APTT PTT Ratio ABG pH ABG pCO2 ABG pO2 ABG HCO3 ABG O2 Saturation ABG Base Excess Sam Test VBG pH VBG pCO2 VBG pO2 VBG HCO3 VBG O2 Saturation VBG Base Excess Oxygen Given Sodium 131 L Potassium 4.9 Chloride 99 Carbon Dioxide 27 Anion Gap 5 BUN 39 H Creatinine 1.72 H D Est Cr Clr Drug Dosing 57.1 Est GFR ( Amer) 45.7 Est GFR (Non-Af Amer) 39.4 BUN/Creatinine Ratio 22.7 H Glucose 190 H POC Glucose Estimat Average Glucose Hemoglobin A1c Lactate Calcium 9.5 Phosphorus 3.3 Magnesium 2.0 Total Bilirubin Direct Bilirubin AST ALT Alkaline Phosphatase Ammonia 26.0 Troponin I High Sens B-Natriuretic Peptide Total Protein Albumin Procalcitonin Urine Color Urine Appearance Urine pH Ur Specific [place] Urine Protein Urine Glucose (UA) Urine Ketones Urine Blood Urine Nitrite Urine Bilirubin Urine Urobilinogen Ur Leukocyte Esterase Urine WBC (Auto) Urine RBC (Auto) U Hyaline Cast (Auto) U Epithel Cells (Auto) Urine Bacteria (Auto) Nasal Screen MRSA (PCR) Digoxin Adenovirus (PCR) B. pertussis DNA (PCR) B.parapertussis DNA PCR C. pneumoniae DNA (PCR) Coronavirus OC43 (PCR) Coronavirus HKU1 (PCR) Coronavirus 229E (PCR) SARS-CoV-2 (PCR) Coronavirus NL63 (PCR) Human Metapneumovir PCR Influenza A Untype (PCR) Influenza Type B (PCR) M. pneumoniae (PCR) Parainfluenza 1 (PCR) Parainfluenza 2 (PCR) Parainfluenza 3 (PCR) Parainfluenza 4 (PCR) RSV (PCR) Entero/Rhino (PCR) 06/16/22 06/16/22 06/16/22 03:25 03:25 03:32 WBC RBC Hgb Hct MCV MCH MCHC RDW Std Deviation RDW Coeff of Baldo Plt Count MPV Immature Gran % (Auto) Neut % (Auto) Lymph % (Auto) [place] % (Auto) Eos % (Auto) Baso % (Auto) Neut # (Auto) Lymph # (Auto) [place] # (Auto) Eos # (Auto) Baso # (Auto) Immature Gran # (Auto) PT INR APTT PTT Ratio ABG pH 7.39 ABG pCO2 39 ABG pO2 73 L ABG HCO3 24 ABG O2 Saturation 95.1 H ABG Base Excess -1.2 Sam Test POS VBG pH VBG pCO2 VBG pO2 VBG HCO3 VBG O2 Saturation VBG Base Excess Oxygen Given 40% Sodium Potassium Chloride Carbon Dioxide Anion Gap BUN Creatinine Est Cr Clr Drug Dosing Est GFR ( Amer) Est GFR (Non-Af Amer) BUN/Creatinine Ratio Glucose POC Glucose Estimat Average Glucose 286 Hemoglobin A1c 11.6 H Lactate Calcium Phosphorus Magnesium Total Bilirubin Direct Bilirubin AST ALT Alkaline Phosphatase Ammonia Troponin I High Sens B-Natriuretic Peptide Total Protein Albumin Procalcitonin Urine Color Urine Appearance Urine pH Ur Specific [place] Urine Protein Urine Glucose (UA) Urine Ketones Urine Blood Urine Nitrite Urine Bilirubin Urine Urobilinogen Ur Leukocyte Esterase Urine WBC (Auto) Urine RBC (Auto) U Hyaline Cast (Auto) U Epithel Cells (Auto) Urine Bacteria (Auto) Nasal Screen MRSA (PCR) Digoxin 0.9 Adenovirus (PCR) B. pertussis DNA (PCR) B.parapertussis DNA PCR C. pneumoniae DNA (PCR) Coronavirus OC43 (PCR) Coronavirus HKU1 (PCR) Coronavirus 229E (PCR) SARS-CoV-2 (PCR) Coronavirus NL63 (PCR) Human Metapneumovir PCR Influenza A Untype (PCR) Influenza Type B (PCR) M. pneumoniae (PCR) Parainfluenza 1 (PCR) Parainfluenza 2 (PCR) Parainfluenza 3 (PCR) Parainfluenza 4 (PCR) RSV (PCR) Entero/Rhino (PCR) 06/16/22 06/16/22 08:04 10:41 WBC RBC Hgb Hct MCV MCH MCHC RDW Std Deviation RDW Coeff of Baldo Plt Count MPV Immature Gran % (Auto) Neut % (Auto) Lymph % (Auto) [place] % (Auto) Eos % (Auto) Baso % (Auto) Neut # (Auto) Lymph # (Auto) [place] # (Auto) Eos # (Auto) Baso # (Auto) Immature Gran # (Auto) PT INR APTT PTT Ratio ABG pH ABG pCO2 ABG pO2 ABG HCO3 ABG O2 Saturation ABG Base Excess Sam Test VBG pH VBG pCO2 VBG pO2 VBG HCO3 VBG O2 Saturation VBG Base Excess Oxygen Given Sodium Potassium Chloride Carbon Dioxide Anion Gap BUN Creatinine Est Cr Clr Drug Dosing Est GFR ( Amer) Est GFR (Non-Af Amer) BUN/Creatinine Ratio Glucose POC Glucose 238 H 236 H Estimat Average Glucose Hemoglobin A1c Lactate Calcium Phosphorus Magnesium Total Bilirubin Direct Bilirubin AST ALT Alkaline Phosphatase Ammonia Troponin I High Sens B-Natriuretic Peptide Total Protein Albumin Procalcitonin Urine Color Urine Appearance Urine pH Ur Specific [place] Urine Protein Urine Glucose (UA) Urine Ketones Urine Blood Urine Nitrite Urine Bilirubin Urine Urobilinogen Ur Leukocyte Esterase Urine WBC (Auto) Urine RBC (Auto) U Hyaline Cast (Auto) U Epithel Cells (Auto) Urine Bacteria (Auto) Nasal Screen MRSA (PCR) Digoxin Adenovirus (PCR) B. pertussis DNA (PCR) B.parapertussis DNA PCR C. pneumoniae DNA (PCR) Coronavirus OC43 (PCR) Coronavirus HKU1 (PCR) Coronavirus 229E (PCR) SARS-CoV-2 (PCR) Coronavirus NL63 (PCR) Human Metapneumovir PCR Influenza A Untype (PCR) Influenza Type B (PCR) M. pneumoniae (PCR) Parainfluenza 1 (PCR) Parainfluenza 2 (PCR) Parainfluenza 3 (PCR) Parainfluenza 4 (PCR) RSV (PCR) Entero/Rhino (PCR) (1) Atrial fibrillation Atrial fibrillation type: unspecified Qualified Code(s): I48.91 - Unspecified atrial fibrillation
--- NOTE | 2022-06-16 12:35 | XRay Report ---
XR chest 1V portable CLINICAL HISTORY: post-operative coughing and wheezing TECHNIQUE: Single frontal radiograph of the chest was obtained. Comparison: Comparison is made to chest radiograph 06/16/2022 FINDINGS: Dual lead pacemaker is seen. Cardiomegaly is noted. Prominence and cephalization of the vasculature i s seen. Airspace opacity is in the right lower lung. No evidence of pleural effusion or pneumothorax. IMPRESSION: Interval improvement in right lower lung airspace opacity which may represent improving atelectasis. Mild pulmonary edema is improved. Stable cardiomegaly. ACT 112: Negative or not required by law. Electronically signed by: Benji Correa M.D. 06/16/2022 12:34 PM
[2022-06-16] MEDS ORDERED: RAPID SEQUENCE INDUCTION BAG ONE (12:58)
[2022-06-16] MEDS ORDERED: STAT IV STA (13:13)
[2022-06-16] MEDS ORDERED: INSULIN PROTOCOL GOAL RANGE ONE (13:13)
[2022-06-16] MEDS ORDERED: Heparin IV Adult Wt-Based Standard *NO* Bolus Protocol IV SCH (13:17)
[2022-06-16] MEDS ORDERED: dexAMETHasone 6 MG in SYRINGE 0 ML IV ONE (13:18)
--- NOTE | 2022-06-16 13:52 | Critical Care Consultation ---
Date of Consultation June 16, 2022 Assessment & Plan (1) Respiratory failure with hypoxia: (2) Influenza A: (3) Acute hyperglycemia: (4) Dehydration: (5) Chronic diastolic CHF (congestive heart failure): (6) Paroxysmal atrial fibrillation: (7) ALMA ROSA (acute kidney injury): Plan 72-year-old male with a history of SALAS, obesity, diastolic heart failure, hypersensitivity pneumonitis, uncontrolled diabetes mellitus type 2, paroxysmal atrial fibrillation and hypothyroidism presenting to the hospital due to acute hypoxemic respiratory failure and encephalopathy secondary to influenza A. He is currently admitted to the ICU. Neurologic: Delirium likely secondary to acute illness and prolonged hypoxemia. CT head negative on admission. Pulmonary: Currently on BiPAP therapy. ABG without evidence of hypercapnic respiratory failure. Low threshold for intubation mechanical ventilation given increased minute ventilation. We will obtain a CT of his chest to further evaluate his parenchyma. He does have a history of "granulomatous" findings on a wedge resection from 2013. I suspect he has an element of chronic hypersensitivity pneumonitis. We will give a one-time dose of 6 mg IV dexamethasone and reevaluate response. Continue treatment with Tamiflu for influenza A. Continue broad-spectrum antibiotics for possible superimposed bacterial pneumonia. MRSA screen was negative. Obtain sputum culture if able. Cardiovascular: History of pacemaker placement atrial fibrillation. We will start the patient on heparin infusion and stop his Eliquis. Check troponins. EKG without signs of ischemia. Echo in December with a preserved EF. Appreciate cardiology input. May need to repeat an echo. Gastrointestinal: Patient with mild abdominal pain likely due to swallowing of air from CPAP and BiPAP. We will obtain a CT of the abdomen and pelvis without contrast to ev aluate further pathology. LFTs on admission were unremarkable. Renal: ALMA ROSA likely secondary to dehydration. We will hold further diuretic dosing. CT abdomen pelvis to evaluate for element of obstructive uropathy. Valentine catheter in place with urine output. Infectious disease: Influenza A on Tamiflu. Blood cultures from yesterday pending. Urine was unremarkable for evidence of UTI. Continue broad-spectrum antibiotics for possible superimposed bacterial pneumonia. Procalcitonin likely of little benefit in this situation given his ALMA ROSA. Hematologic: Recheck CBC. Heparin drip as above. Endocrine: Will likely need to start insulin drip given poorly controlled diabetes and hyperglycemia. A1c 11.6. Check TSH to evaluate for myxedema coma element. Lines and tubes: Peripheral IVs and Valentine catheter. VTE prophylaxis: Heparin infusion CODE STATUS: Full code Family at bedside: Not available at bedside Disposition: ICU I have personally spent 67 minutes of critical care time in the direct management of this patient. This is a life/limb threatening event. This includes time spent evaluating patient, direct bedside care, chart review, placing orders, interpretation of diagnostic studies, discussion with consultants, patient, and family members, as well as other required patient management activities. This time is exclusive of all separately billable procedures, and teaching time and separate from and in addition to any other critical care service time. Thank you for allowing us to participate in the care of this patient. History of Present Illness Reason for Consultation: Acute hypoxemic respiratory failure, encephalopathy and influenza A Attending Physician: Sanford Sunshine MD History of Present Illness 72-year-old male with a past medical history of right upper lobe wedge resection in 2013 with evidence of granulomatous pneumonitis (poorly formed granulomas) systolic heart failure, diastolic heart failure, morbid obesity, atrial fibrillation, pulmonary embolism, COPD and gout who presented to the hospital due to increasing lethargy. Minimal history is obtained from the patient as he is currently on BiPAP mildly encephalopathic. History is obtained from discussion with the hospitalist, bedside nurse and respiratory therapist. I also reviewed the chart and the H&P. Patient is currently residing at [facility]. Apparently, yesterday he was alert and oriented x4 and able to ambulate. He was feeling weaker and weaker in the past couple days and not eating and drinking his usual. He was admitted to the hospital and started on Tamiflu, doxycycline, Zosyn and monitored on the hamm. I was called to bedside by the RT and hospitalist due to the patient's increasing encephalopathy and tachypnea. The patient was urgently moved to the ICU in anticipation of intubation. However, the patient's alertness improved and he was able to respond to simple commands and simple questions. He was able to squeeze my fingers bilaterally and wiggle his toes. He did endorse some mild abdominal discomfort. He previously followed with Dr. Cardozo for COPD, bronchiectasis and SALAS. PFT in 2014 revealed an FEV1/FVC of 85. FEV1 3.05 L, 90%. FVC 3.59 L, 79%. No significant postbronchodilator response. PFT in 2013 revealed an FEV1 of 3.31 L, 85%. FVC 4.14 L, 81%. No significant postbronchodilator response. TLC 67% predicted. DLCO 63% predicted. Allergies Allergy/AdvReac Type Severity Reaction Status Date / Time No Known Allergies Allergy Verified 06/15/22 15:07 Home Medications Medication Instructions Recorded Confirmed Type Glargine, Human 100units/Ml 100 unit SC QAM 06/15/22 06/15/22 History Glargine,Human 100units/Ml 55 unit SC HS 06/15/22 06/15/22 History Vancomycin Fortified 10mg/Ml 1 drp OPB QID 06/15/22 06/15/22 History acetaminophen 325 mg tablet 650 mg PO Q4 PRN Fever Or Pain 06/15/22 06/15/22 H istory (Tylenol) albuterol sulfate 90 mcg/actuation 2 puff inhalation Q4 PRN Shortness 06/15/22 06/15/22 History aerosol inhaler Of Breath Or Wheezing allopurinol 300 mg tablet 300 mg PO DAILY 06/15/22 06/15/22 History apixaban 5 mg tablet 5 mg PO Q12 06/15/22 06/15/22 History aspirin 81 mg tablet,delayed 81 mg PO DAILY 06/15/22 06/15/22 History release atorvastatin 10 mg tablet 10 mg PO DAILY 06/15/22 06/15/22 History bupropion HCl 150 mg 24 hr tablet, 150 mg PO DAILY 06/15/22 06/15/22 History extended release cholecalciferol (vitamin D3) 25 50 mcg PO DAILY 06/15/22 06/15/22 History mcg (1,000 unit) tablet (Vitamin D3) digoxin 125 mcg (0.125 mg) tablet 125 mcg PO DAILY 06/15/22 06/15/22 History duloxetine 60 mg capsule,delayed 60 mg PO DAILY 06/15/22 06/15/22 History release epinephrine 0.3 mg/0.3 mL 0.3 mg IM DIRECTED PRN Allergic 06/15/22 06/15/22 History injection, auto-injector Reaction erythromycin 5 mg/gram (0.5 %) eye 1 applic OPB DIRECTED 06/15/22 06/15/22 History ointment furosemide 80 mg tablet 40 mg PO DAILY 06/15/22 06/15/22 History gabapentin 300 mg capsule 300 mg PO QID 06/15/22 06/15/22 History insulin regular human 100 unit/mL 12 unit subcut ACHS 06/15/22 06/15/22 History injection solution (Novolin R Regular U-100 Insulin) levothyroxine 125 mcg tablet 250 mcg PO DAILY 06/15/22 06/15/22 History lidocaine 5 % topical patch 1 patch topical DAILY 06/15/22 06/15/22 History loratadine 10 mg tablet 20 mg PO DAILY PRN .allergies 06/15/22 06/15/22 History magnesium oxide 420 mg tablet 420 mg PO DAILY 06/15/22 06/15/22 History metolazone 2.5 mg tablet 2.5 mg PO DAILY PRN .weight gain 06/15/22 06/15/22 History of 3 lbs/24 hrs metoprolol succinate 100 mg 150 mg PO BID 06/15/22 06/15/22 History tablet,extended release 24 hr multivitamin 1 tab PO DAILY 06/15/22 06/15/22 History naphazoline 0.025 %-pheniramine 2 drp ophthalmic (eye) Q6 PRN .. 06/15/22 06/15/22 History 0.3 % eye drops (Naphcon-A) nitroglycerin 0.4 mg sublingual 0.4 mg sublingual DIRECTED PRN 06/15/22 06/15/22 History tablet (Nitrostat) Chest Pain nystatin 100,000 unit/gram topical 1 applic topical BID 06/15/22 06/15/22 History powder omeprazole 20 mg capsule,delayed 20 mg PO DAILY 06/15/22 06/15/22 History release polyvinyl alcohol-povidone (PF) 1 drp OPB DIRECTED 06/15/22 06/15/22 History 1.4 %-0.6 % eye drops in a dropperette (Refresh Classic (PF)) potassium chloride 20 mEq 20 meq PO DAILY 06/15/22 06/15/22 History tablet,extended release(part/cryst) sennosides 8.6 mg tablet (senna) 8.6 mg PO BID 06/15/22 06/15/22 History Patient History Medical History (Updated 06/16/22 @ 13:30 by Star Clark MD) Abnormal chest x-ray 06/18/20 right hilar opacity, f/u recommended ALMA ROSA (acute kidney injury) Anticoagulant long-term use Arthritis Atrial fibrillation paroxysmal Atrial flutter Bifascicular block CAD (coronary artery disease) Cardiac pacemaker in situ Cardiomyopathy Chronic anticoagulation Chronic diastolic CHF (congestive heart failure) Chronic venous insufficiency CKD (chronic kidney disease) stage 3, GFR 30-59 ml/min Claustrophobia Closed fracture of thyroid cartilage COPD, moderate Depression Diabetes mellitus, type 2 insulin pump Fatty liver Gout Hyperlipidemia Hypertension Hypothyroidism Iatrogenic pulmonary embolism Influenza A Interstitial lung disease Morbid obesity MRSA infection Nephrolithiasis Nocturnal hypoxemia SALAS (obstructive sleep apnea) Osteoarthritis Paroxysmal atrial fibrillation Prolonged QT interval Pulmonary embolism B/L- 5+ years ago Sarcoidosis possible- evaluated by pulmonary; felt no active sarcoidosis and would not merit steroid therapy given weight/diabetic state. 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 "prior EF of 25% while in aflutter, subsequently normal in NSR" Surgical History H/O cardiac radiofrequency ablation H/O prior ablation treatment History of arthroscopic knee surgery History of bronchoscopy History of cataract surgery local anesthesia only per pt History of cholecystectomy History of extraction of renal calculus History of lung surgery thoracoscopy, right VATS, wedge resection History of umbilical hernia repair Hx of carpal tunnel repair Pacemaker Implanted 02/2017 secondary to Sinus node dysfunction/tachy sherry syndrome/3rd degree AVB [employer] Pacer check 12/24/17 Status post incision and drainage Family History Mother Cancer Social History Smoking Status: Never smoker Second Hand Exposure: No; Hx Alcohol Use: No Hx Substance Use: No Preferred Language: German Communication Ability: Effective Visual Impairment: Limited Hearing Ability: Normal Utilities Manager Required: No Beliefs That Will Affect Care: None marital status: Single Current Living Situation: Senior Care Current Living Situation Comment: [facility] current occupational status: retired How many Children do You have: 1 How many Children do You have Comment: children are not involved with care much per pt Other Information That Helps Us Care for You: No Feels Safe at Home: Yes Safety Concerns: Feels Safe At This Time Diet Comment: FLUID RESTRICTION during the past year weight has: other Assistive Devices: Walker Review of Systems Review of Systems: All systems reviewed & are unremarkable except as noted in HPI & below Physical Exam Physical Exam: Constitutional: Patient appears to be of their stated age. Patient is in no apparent distress. Patient is well-developed. Eyes: Pupils are equal round and reactive to light. Conjunctivae are normal. Anicteric sclera. Ears nose, mouth and throat: Difficult to examine as the BiPAP mask is in place. He does appear to have a wide and thick neck. His tongue is large. Neck: Trachea is midline. Visual inspection is normal. Respiratory: Coarse rhonchi and wheezing bilaterally. Cardiovascular: Regular rate and rhythm. No murmurs. Chronic venous stasis changes bilaterally with 1+ edema. Gastrointestinal: Normal bowel sounds, soft, nontender and nondistended. No hepatosplenomegaly noted. Musculoskeletal: No cyanosis. Patient is able to move all extremities. 3 out of 5 strength in all extremities. Skin: No rashes, warm dry and intact. Neurologic: No obvious focal neurological deficits seen. Lethargic, but without obvious deficit. Psychiatric: Lethargic. Results & Data Results & Data ([facility]) Vital Signs (Past 12 Hours) Vital Signs Temp Pulse Pulse Resp BP Pulse Ox O2 Del Method 06/16/22 13:18 62 41 H 93 06/16/22 06:08 77 06/16/22 12:44 61 40 H 149/75 H 94 BiPAP 06/16/22 12:04 37.6 C H 60 36 H 143/79 H 97 BiPAP 06/16/22 11:32 62 42 H 98 06/16/22 11:32 62 42 H 98 BiPAP 06/16/22 10:35 36.9 C 62 30 H 127/85 96 BiPAP 06/16/22 08:35 36.7 C 70 36 H 122/71 94 BiPAP 06/16/22 07:33 BiPAP 06/16/22 07:32 37.3 C 70 35 H 117/69 96 BiPAP 06/16/22 07:28 70 35 H 95 BiPAP 06/16/22 06:20 37.5 C 61 30 H 105/61 94 BiPAP 06/16/22 05:29 38.4 C H 64 34 H 105/59 L 95 BiPAP 06/16/22 04:55 37.9 C H 60 32 H 135/71 96 BiPAP 06/16/22 03:41 39.4 C H 60 35 H 128/67 95 BiPAP 06/16/22 03:31 65 30 H 89 L Oxymask 06/16/22 03:26 60 35 H 96 06/16/22 02:41 93 Oxymask 06/16/22 02:12 39.3 C H 60 32 H 138/69 83 L Nasal Cannula O2 Flow Rate FiO2 06/16/22 13:18 50 06/16/22 06:08 06/16/22 12:44 50 06/16/22 12:04 45 06/16/22 11:32 40 06/16/22 11:32 50 06/16/22 10:35 40 06/16/22 08:35 40 06/16/22 07:33 40 06/16/22 07:32 40 06/16/22 07:28 40 06/16/22 06:20 40 06/16/22 05:29 40 06/16/22 04:55 40 06/16/22 03:41 40 06/16/22 03:31 8 06/16/22 03:26 40 06/16/22 02:41 8 06/16/22 02:12 3 Coding Level of Care Code Critical Care 1st 30-74 mins Diagnoses Respiratory failure with hypoxia J96.91 Influenza A J10.1 Acute hyperglycemia R73.9 Dehydration E86.0 Chronic diastolic CHF (congestive heart failure) I50.32 Paroxysmal atrial fibrillation I48.0 ALMA ROSA (acute kidney injury) N17.9 Time Spent (min) 67
[2022-06-16] MEDS ORDERED: INSULIN REGULAR 250 UNITS in SODIUM CHLORIDE 0.9% 247.5 ML IV SCH (14:00)
--- NOTE | 2022-06-16 14:07 | Hospitalist Progress Note ---
Date of Service June 16, 2022 Assessment & Plan (1) Respiratory failure with hypoxia: Plan 72-year-old male with PMH of morbid obesity, HFpEF [TTE F 50 to 60%], SSS status post PPM/PE on anticoagulation, COPD/ILD, SALAS on CPAP, DM 2 on insulin, hypothyroidism, CKD [baseline 1.5-2], chronic anemia presented to ED 06/15 from [facility] d/t being lethargic and SPO2 85 to 88 % on RA. Patient was found to have flow at ED, CXR with concern of mild pulmonary edema at [facility]. He is being managed for the following: Acute hypoxic respiratory failure: Likely secondary to influenza and acute on chronic diastolic heart failure Acute on chronic diastolic heart failure Sepsis POA 2/2 viral infection & Influenza : Respiratory rate and temperature elevated. Possible superimposed bacterial infection Acute metabolic encephalopathy Patient was admitted due to concern of hypoxia and encephalopathy at [facility] on the day of arrival. Admitting WBC and Pro-Sreedhar WNL, admitting BNP 340/elevated from prior. Admitting temperature of 39.2C Admitting CXR with mild pulmonary edema. 12/28/2021 echo: EF 55 to 60%, study was technically difficult. Encephalopathy secondary to acute illness and hypoxia, hold neuropsychotropic drugs until resolution. Correct underlying abnormality. Acute on chronic diastolic failure, cardiology on board, will need diuresis, monitor renal function, Valentine, I's and O's. Overnight patient was hypoxic requiring BiPAP, continue to maintain BiPAP, ICU monitoring, continue with Zosyn started overnight, continue with doxycycline, follow 08/16 blood culture. Continue Tamiflu. Acute kidney injury: Likely cardiorenal syndrome, getting CT abdomen pelvis, Valentine in place, monitor labs, avoid nephrotoxins, cautious diuresis due to need because of ongoing acute on chronic heart failure. H/O A. fib and pacemaker placement: On Eliquis, patient being started on heparin infusion while in ICU. Other chronic medical conditions: Resume meds as able. DVT prophylaxis: Heparin infusion Full code Dispo: Pt being managed in ICU. 06/16: Patient's daughter Bing was given a phone call and updated regarding worsening respiratory status and need to transfer the patient down to ICU, answered all her questions to her full satisfaction. Admission and Anticipated Discharge Date Admission Date: June 15, 2022 Subjective Patient seen and examined at bedside as a follow-up of acute hypoxic respiratory failure and encephalopathy secondary to influenza A, acute on chronic diastolic heart failure, acute kidney injury. Patient was lying in bed, on BiPAP, was oriented in a.m. exam, per RN patient was confused early AM, overnight patient desaturated and needed to be put on BiPAP for oxygenation, patient received a dose of IV Lasix, his creatinine bumped up, received another dose of Lasix in the morning, later in the morning I was paged because patient was fighting BiPAP, patient with diffuse and bilateral crackles on exam today, discussed with ICU attending, patient transferred down to ICU for close monitoring due to increasing oxygen requirement/fighting of BiPAP/pulmonary edema. Physical Exam Physical Exam: GENERAL: lethargic. fighting BPAP, on BPAP for oxygenation. Obese class III. Appears ill/weak/lethargic. HEENT: No pallor, no icterus. Pupils equal, round and reactive to light. Oral mucosa moist. NECK: No JVD, no neck masses. HEART: S1 and S2 heard. Regular rate and rhythm. No murmur, no gallop. RESPIRATORY SYSTEM: Normal AP diameter. No accessory muscle use. No wheezing, diffuse and bilateral crackles. ABDOMEN: Soft, bowel sounds present, nontender, no distention. CENTRAL NERVOUS SYSTEM: No facial droop. Speech is clear. Obeys simple commands. Moves extremities. EXTREMITIES: trace/1+ ble edema, chronic skin changes ble, no erythema seen. Results & Data Results & Data ([facility]) Vital Signs (Past 12 Hours) Vital Signs Temp Pulse Pulse Resp BP Pulse Ox O2 Del Method 06/16/22 13:18 62 41 H 93 06/16/22 06:08 77 06/16/22 12:44 61 40 H 149/75 H 94 BiPAP 06/16/22 12:04 37.6 C H 60 36 H 143/79 H 97 BiPAP 06/16/22 11:32 62 42 H 98 06/16/22 11:32 62 42 H 98 BiPAP 06/16/22 10:35 36.9 C 62 30 H 127/85 96 BiPAP 06/16/22 08:35 36.7 C 70 36 H 122/71 94 BiPAP 06/16/22 07:33 BiPAP 06/16/22 07:32 37.3 C 70 35 H 117/69 96 BiPAP 06/16/22 07:28 70 35 H 95 BiPAP 06/16/22 06:20 37.5 C 61 30 H 105/61 94 BiPAP 06/16/22 05:29 38.4 C H 64 34 H 105/59 L 95 BiPAP 06/16/22 04:55 37.9 C H 60 32 H 135/71 96 BiPAP 06/16/22 03:41 39.4 C H 60 35 H 128/67 95 BiPAP 06/16/22 03:31 65 30 H 89 L Oxymask 06/16/22 03:26 60 35 H 96 06/16/22 02:41 93 Oxymask 06/16/22 02:12 39.3 C H 60 32 H 138/69 83 L Nasal Cannula O2 Flow Rate FiO2 06/16/22 13:18 50 06/16/22 06:08 06/16/22 12:44 50 06/16/22 12:04 45 06/16/22 11:32 40 06/16/22 11:32 50 06/16/22 10:35 40 06/16/22 08:35 40 06/16/22 07:33 40 06/16/22 07:32 40 06/16/22 07:28 40 06/16/22 06:20 40 06/16/22 05:29 40 06/16/22 04:55 40 06/16/22 03:41 40 06/16/22 03:31 8 06/16/22 03:26 40 06/16/22 02:41 8 06/16/22 02:12 3
[2022-06-16 14:25] LABS: Basophils # (auto) 0.01 K/uL (0-0.2); Basophils % (auto) 0.1 %; Hematocrit (blood only) 41.2 % (40.1-51.0); Hemoglobin 13.2 g/dl (14.0-18.0); Immature Granulocytes # (auto) 0.06 K/uL (0.00-0.02); Immature Granulocytes % (auto) 0.6 %; Lymphocytes # (auto) 0.36 K/uL (1.2-3.4); Lymphocytes % (auto) 3.3 %; Mean Corpuscular Volume 87.3 fL (80.0-100.0); Mean Platelet Volume 11.1 fL (9.4-12.4); Monocytes # (auto) 1.13 K/uL (0.24-0.82); Monocytes % (auto) 10.5 %; Neutrophils # (auto) 9.23 K/uL (1.4-6.5); Neutrophils % (auto) 85.5 %; Platelet Count 129 K/uL (130-400); RDW Coefficient of Variation 14.3 % (11.5-14.5); RDW Standard Deviation 45.5 fL (36.4-46.3); Red Blood Count 4.72 M/uL (4.63-6.08); White Blood Count 10.79 K/ul (4.8-10.8)
[2022-06-16 14:42] LABS: Partial Thromboplastin Ratio 1.4; Partial Thromboplastin Time 37.9 Seconds (21.0-31.0)
--- NOTE | 2022-06-16 15:08 | CT Scan Report ---
CT abd pelvis wo con CLINICAL HISTORY: renal failure, abd pain TECHNIQUE: Helical axial images of the abdomen and pelvis were obtained. Automated dose lowering tech niques and/or adjustment according to patient size were utilized for this exam. This exam was perfor med without intravenous contrast. COMPARISON: Comparison is made to CT abdomen pelvis 07/11/2021 FINDINGS: Lower chest: For findings above the diaphragm, please see CT chest performed same day. Liver: Unremarkable. No focal lesions are seen. Gallbladder and biliary tree: A gallbladder remnant is suggested. No intra- or extrahepatic biliary d uctal dilation. Pancreas: The pancreas is atrophic. Spleen: Unremarkable. Adrenals: Unremarkable. Kidneys and ureters: Perinephric stranding is noted bilaterally. Bladder: Valentine catheter is seen. Reproductive organs: Unremarkable. Bowel: Unremarkable appearance of the bowel. The appendix is normal. Lymph nodes Retroperitoneal: Subcentimeter tiffany hepatis nodes are noted. Pelvic: Unremarkable. Mesenteric: Unremarkable. Peritoneum: Normal. Vessels: Atherosclerotic calcifications are seen. Abdominal wall: Postsurgical changes are seen in the midline abdomen, there is diastases of the abdom inal musculature. Bones: Degenerative changes in the visualized spine. IMPRESSION: 1. No acute intra-abdominal abnormality is seen, in particular no evidence of hydronephrosis in this patient with renal failure. The appendix is normal. 2. Please see CT chest for findings above the diaphragm. ACT 112: Negative or not required by law. Electronically signed by: Benji Correa M.D. 06/16/2022 3:07 PM
--- NOTE | 2022-06-16 15:30 | CT Scan Report ---
CT chest diagnostic wo con CT DOSE: 3943.21 mGy.cm HISTORY: hypoxia TECHNIQUE: Multiaxial CT images of the chest were performed without contrast. A dose lowering techni que was utilized adhering to the principles of ALARA. COMPARISON: Chest CT 07/11/2021. FINDINGS: Old, healed midsternal fracture and old, healed bilateral rib fractures. No acute fractures identified within the chest. No suspicious lytic or blastic osseous lesions. There is left-sided pamela l-chamber pacemaker. The abdominal structures will be reported on the same day abdomen and pelvis CT. A few punctate gallstones are noted at 8 gallbladder remnant. There are trace bilateral pleural effu sions. Bilateral gynecomastia, unchanged. Normal esophagus. The heart remains mildly enlarged. No per icardial effusion. Progressive mediastinal and bilateral hilar lymphadenopathy. A dominant right para tracheal lymph node measures 2.1 cm, previously measuring 1.4 cm. Normal caliber thoracic aorta. Mode rate calcified plaque within the coronary arteries. No pneumothorax. Respiratory motion artifact is n oted. Mild to moderate narrowing within the central bronchi due to the mass effect from the lymphaden opathy. Patchy bilateral perihilar airspace opacities with areas of dense consolidation within the bi lateral lower lobes. This favors a pneumonia and could be due to aspiration. There is also mild inter lobular septal thickening. This raises the possibility of superimposed pulmonary edema. IMPRESSION: 1. Patchy bilateral perihilar airspace opacities with areas of dense consolidation within the bilater al lower lobes. This favors a pneumonia and could be due to aspiration. 2. There is also mild interlobular septal thickening. This raises the possibility of superimposed mil d pulmonary edema. 3. Interval progression of the extensive mediastinal and bilateral hilar lymphadenopathy. The bilater al hilar lymph nodes result in mild to moderate narrowing of the central airways. This could be react shemar to the suspected pneumonia. However, a neoplastic process remains the diagnosis of exclusion. Fol low-up recommended to ensure stability/resolution. Consider follow-up pulmonary consultation. 4. Trace bilateral pleural effusions. 5. Additional findings as described above. ACT 112: Positive. There are findings on this exam that require communication between the performing entity and the patient following Patient Test Result Information Act ([place] Act 112) guidelines. Electronically signed by: Stan Lopez M.D. 06/16/2022 3:29 PM
[2022-06-16] MEDS: HEPARIN SODIUM/DEXTROSE 25,000 UNITS/500 ML BAG IV SCH (15:43)
[2022-06-16 15:49] LABS: BUN Creatinine Ratio 24.8 (10-20); Calcium 9.2 mg/dl (8.5-10.1); Creatinine Clr Calc Pharmacy 47.6 ml/min; Est GFR (African American) 36.7 ml/min; Est GFR (Non-African American) 31.7 ml/min; Potassium 4.9 mmol/L (3.5-5.1); Troponin I High Sensitivity 24.9 pg/ml (0-20)
[2022-06-16] MEDS ORDERED: Nursing to Pharmacy Communication SCH (16:00)
[2022-06-16] MEDS ORDERED: INSULIN ASPART PER UNIT SC SCH (16:30)
[2022-06-16] MEDS: DIGOXIN 0.125 MG TAB PO SCH (16:40)
--- NOTE | 2022-06-16 16:46 | Electrocardiogram Report ---
Test Reason : Blood Pressure : / mmHG Vent. Rate : 061 BPM Atrial Rate : 057 BPM P-R Int : 000 ms QRS Dur : 186 ms QT Int : 482 ms P-R-T Axes : 000 -68 105 degrees QTc Int : 485 ms Ventricular-paced rhythm Abnormal ECG When compared with ECG of 11-JUN-2022 22:30, Vent. rate has decreased BY 19 BPM Confirmed by Jim Davenport ([id number]) on 06/16/2022 4:46:28 PM Referred By: Confirmed By:Jim Davenport
--- NOTE | 2022-06-16 17:07 | Electrocardiogram Report ---
Test Reason : Blood Pressure : / mmHG Vent. Rate : 072 BPM Atrial Rate : 057 BPM P-R Int : 000 ms QRS Dur : 158 ms QT Int : 458 ms P-R-T Axes : 000 -84 055 degrees QTc Int : 501 ms Atrial fibrillation with frequent ventricular-paced complexes Right bundle branch block Left anterior fascicular block Bifascicular block Cannot rule out Inferior infarct (masked by fascicular block?) , age undetermined Abnormal ECG When compared with ECG of 15-JUN-2022 12:00, (unconfirmed) Vent. rate has increased BY 11 BPM Confirmed by Jim Davenport ([id number]) on 06/16/2022 5:07:05 PM Referred By: [facility] Confirmed By:Jim Davenport
--- NOTE | 2022-06-16 17:12 | Electrocardiogram Report ---
Test Reason : Blood Pressure : / mmHG Vent. Rate : 064 BPM Atrial Rate : 068 BPM P-R Int : 000 ms QRS Dur : 194 ms QT Int : 482 ms P-R-T Axes : 000 -71 099 degrees QTc Int : 497 ms Ventricular-paced rhythm Abnormal ECG When compared with ECG of 16-JUN-2022 05:53, (unconfirmed) Vent. rate has decreased BY 8 BPM Confirmed by Jim Davenport ([id number]) on 06/16/2022 5:12:28 PM Referred By: [facility] Confirmed By:Jim Davenport
[2022-06-16] MEDS: SODIUM CHLOR 7% 4 ML NEB NEB SCH (19:55)
[2022-06-16] MEDS ORDERED: ACETAMINOPHEN 1,000 MG/100 ML VIAL IV PRN (19:59)
[2022-06-16 22:11] LABS: Partial Thromboplastin Ratio > 5.1
[2022-06-16 22:36] LABS: Partial Thromboplastin Time > 139.0 Seconds (21.0-31.0)
[2022-06-16 23:47] LABS: Partial Thromboplastin Ratio > 5.1
[2022-06-16 23:56] LABS: Partial Thromboplastin Time > 139.0 Seconds (21.0-31.0)
[2022-06-17] MEDS: PIPERACILLIN/TAZOBACTAM 4.5 GM in DEXTROSE 5% 100 ML IV SCH ×3 (02:15→18:26)
[2022-06-17 03:04] LABS: Partial Thromboplastin Ratio 1.7
[2022-06-17 03:14] LABS: Partial Thromboplastin Time 47.6 Seconds (21.0-31.0)
[2022-06-17] MEDS: ARTIFICIAL TEARS OP SCH ×9 (05:17→22:19)
[2022-06-17] MEDS: DOXYCYCLINE HYCLATE 100 MG in DEXTROSE 5% 100 ML IV SCH ×2 (05:17→18:26)
[2022-06-17] MEDS: INSULIN ASPART PER UNIT SC SCH ×5 (05:18→22:16)
[2022-06-17] MEDS: LEVOTHYROXINE SODIUM 125 MCG TABLET PO SCH (05:19)
[2022-06-17 06:01] LABS: Basophils # (auto) 0.01 K/uL (0-0.2); Basophils % (auto) 0.1 %; Hematocrit (blood only) 40.1 % (40.1-51.0); Hemoglobin 12.9 g/dl (14.0-18.0); Immature Granulocytes # (auto) 0.06 K/uL (0.00-0.02); Immature Granulocytes % (auto) 0.5 %; Lymphocytes # (auto) 0.82 K/uL (1.2-3.4); Lymphocytes % (auto) 6.4 %; Mean Corpuscular Hemoglobin 27.9 pg (25.0-34.0); Mean Corpuscular Hgb Conc 32.2 g/dL (32.0-36.0); Mean Corpuscular Volume 86.8 fL (80.0-100.0); Mean Platelet Volume 11.5 fL (9.4-12.4); Monocytes # (auto) 0.88 K/uL (0.24-0.82); Monocytes % (auto) 6.9 %; Neutrophils % (auto) 86.1 %; Platelet Count 152 K/uL (130-400); RDW Coefficient of Variation 14.3 % (11.5-14.5); RDW Standard Deviation 44.6 fL (36.4-46.3); Red Blood Count 4.62 M/uL (4.63-6.08); White Blood Count 12.77 K/ul (4.8-10.8)
[2022-06-17 06:33] LABS: BUN Creatinine Ratio 30.4 (10-20); Calcium 9.2 mg/dl (8.5-10.1); Creatinine Clr Calc Pharmacy 49.9 ml/min; Est GFR (African American) 39.5 ml/min; Est GFR (Non-African American) 34.1 ml/min; Magnesium 2.4 mg/dl (1.7-2.4); Phosphorus 4.5 mg/dl (2.5-4.9)
[2022-06-17] MEDS: SODIUM CHLOR 7% 4 ML NEB NEB SCH ×2 (07:26→19:45)
[2022-06-17] MEDS: LEVALBUTEROL 1.25MG/0.5ML NEB INH SCH ×4 (07:26→19:45)
[2022-06-17] MEDS: IPRATROPIUM BROMIDE NEB SOLN 0.02% 2.5 ML VIAL INH SCH ×4 (07:26→19:44)
[2022-06-17] MEDS ORDERED: ICU Protocol for HYPERglycemia SCH (07:30)
[2022-06-17] MEDS: ATORVASTATIN 10 MG TAB PO SCH (08:17)
[2022-06-17] MEDS: MAGNESIUM OXIDE 400 MG TAB PO SCH (08:17)
[2022-06-17] MEDS: MULTIVITAMIN TAB PO SCH (08:18)
[2022-06-17] MEDS: POTASSIUM CHLORIDE CRTAB 20 MEQ TABCR PO SCH (08:20)
[2022-06-17] MEDS: PANTOprazole 40 MG TAB PO SCH (08:20)
[2022-06-17] MEDS: SENNA 8.6 MG TAB PO SCH ×2 (08:20→22:19)
[2022-06-17] MEDS: METOPROLOL SUCC 25MG EXT REL TAB PO SCH (08:23)
[2022-06-17] MEDS: ERYTHROMYCIN OP OINT 5 MG/GM 3.5 GM TUBE OPB SCH (08:25)
[2022-06-17] MEDS: NYSTATIN POWDER 15GM BTL EXT SCH ×2 (08:26→22:09)
--- NOTE | 2022-06-17 08:51 | Critical Care Progress Note ---
Date of Service June 17, 2022 Assessment & Plan (1) Respiratory failure with hypoxia: (2) Influenza A: (3) Acute hyperglycemia: (4) Dehydration: (5) Chronic diastolic CHF (congestive heart failure): (6) Paroxysmal atrial fibrillation: (7) ALMA ROSA (acute kidney injury): Plan 72-year-old male with a history of SALAS, obesity, diastolic heart failure, hypersensitivity pneumonitis, uncontrolled diabetes mellitus type 2, paroxysmal atrial fibrillation and hypothyroidism presenting to the hospital due to acute hypoxemic respiratory failure and encephalopathy secondary to influenza A. He is currently admitted to the ICU. Neurologic: No obvious focal deficits. Holding bupropion and duloxetine given earlier encephalopathy. Holding gabapentin due to renal failure. Pulmonary: Tachypnea improved significantly. Continue as needed BiPAP. Maintain oxygen saturations around 90%. CT chest 06/16/2022 with evidence of aspiration pneumonia. Likely influenza pneumonitis playing a factor as well. Continue Tamiflu and broad-spectrum antibiotics. He does have a history of probable hypersensitivity pneumonitis. He is status post wedge resection in 2013 of the right lung Cardiovascular: History of pacemaker placement and atrial fibrillation. Continue heparin infusion. Restarted low-dose metoprolol tartrate twice daily given history of A. fib and increasing blood pressures. Gastrointestinal: Advance diet as tolerated. CT abdomen without acute findings. Renal: ALMA ROSA likely secondary to dehydration. We will hold further diuretic dosing. Follow urine output closely. Creatinine appears to have plateaued. Infectious disease: Influenza A on Tamiflu. Blood cultures NTD. Urine was unremarkable for evidence of UTI. Continue broad-spectrum antibiotics for possible superimposed bacterial pneumonia. Procalcitonin likely of little benefit in this situation given his ALMA ROSA. Hematologic: No significant issues. On heparin drip due to history of A. fib. Endocrine: Transition off insulin drip to basal/bolus insulin. ICU pharmacist assisting. Lines and tubes: Peripheral IVs and Valentine catheter. VTE prophylaxis: Heparin infusion CODE STATUS: Full code Family at bedside: Not available at bedside Disposition: ICU with probable downgrade today if he continues to improve. Admission and Anticipated Discharge Date Admission Date: June 15, 2022 Subjective Patient clinically looks much better. He is much more alert and oriented today. We were able to take him off BiPAP and put him on nasal cannula. He is tolerating a clear diet at the moment. He is off his insulin drip. His tachypnea has improved substantially. Review of Systems Review of Systems: All systems reviewed & are unremarkable except as noted in HPI & below Physical Exam Physical Exam: Constitutional: Patient appears to be of their stated age. Patient is in no apparent distress. Patient is well-developed. Eyes: Pupils are equal round and reactive to light. Conjunctivae are normal. Anicteric sclera. Ears nose, mouth and throat:He does appear to have a wide and thick neck. His tongue is large. Neck: Trachea is midline. Visual inspection is normal. Respiratory: Coarse rhonchi bilaterally. Mild tachypnea. Cardiovascular: Irregularly irregular. No murmurs. Chronic venous stasis changes bilaterally with 1+ edema. Gastrointestinal: Normal bowel sounds, soft, nontender and nondistended. No hepatosplenomegaly noted. Musculoskeletal: No cyanosis. Patient is able to move all extremities. 4 out of 5 strength in all extremities. Skin: No rashes, warm dry and intact. Neurologic: No obvious focal neurological deficits seen. Psychiatric: Lethargic. Results & Data Results & Data ([facility]) Vital Signs (Past 12 Hours) Vital Signs Temp Pulse Pulse Resp BP Pulse Ox O2 Del Method 06/17/22 07:30 92 H 25 H 96 06/17/22 07:30 92 H 25 H 96 BiPAP 06/17/22 07:00 37.1 C 97 H 25 H 155/77 H 97 BiPAP 06/17/22 07:00 93 H 06/17/22 07:00 BiPAP 06/17/22 06:15 37.1 C 86 26 H 97 06/17/22 06:01 140/86 06/17/22 06:01 37.1 C 84 23 96 06/17/22 06:00 37.1 C 92 H 25 H 96 06/17/22 05:45 37.1 C 90 27 H 95 06/17/22 05:30 37.1 C 87 28 H 97 06/17/22 05:00 37.1 C 86 25 H 97 06/17/22 05:00 142/76 H 06/17/22 04:30 37.1 C 93 H 24 97 06/17/22 04:00 37.2 C 79 25 H 98 06/17/22 04:00 146/91 H 06/17/22 03:30 37.2 C 98 H 25 H 96 06/17/22 04:20 77 26 H 98 12/06/22 03:01 162/84 H 06/17/22 03:01 37.2 C 91 H 26 H 98 06/17/22 03:00 37.2 C 91 H 26 H 97 06/17/22 02:50 37.2 C 91 H 25 H 97 06/17/22 02:40 37.2 C 79 25 H 95 06/17/22 02:30 37.2 C 83 28 H 96 06/17/22 02:00 90 25 H 96 06/17/22 02:00 100/62 06/17/22 01:30 83 24 96 06/17/22 01:01 109/85 06/17/22 01:01 96 H 26 H 97 06/17/22 01:00 87 24 97 06/17/22 00:30 90 25 H 96 06/17/22 00:01 88 26 H 97 06/17/22 00:01 114/73 06/17/22 00:00 83 24 98 06/16/22 23:30 86 23 95 06/17/22 01:02 36.9 C 06/17/22 01:00 83 25 H 95 06/16/22 23:54 87 06/16/22 23:02 91 H 26 H 95 06/16/22 23:02 118/67 06/16/22 23:00 93 H 24 95 06/16/22 22:30 93 H 28 H 95 06/16/22 22:00 95 H 26 H 94 06/16/22 21:30 78 30 H 94 06/16/22 21:01 38.2 C H 78 30 H 95 06/16/22 21:01 111/62 06/16/22 21:00 81 32 H 95 06/16/22 21:11 BiPAP FiO2 06/17/22 07:30 35 06/17/22 07:30 35 06/17/22 07:00 35 06/17/22 07:00 06/17/22 07:00 35 06/17/22 06:15 06/17/22 06:01 06/17/22 06:01 06/17/22 06:00 06/17/22 05:45 06/17/22 05:30 06/17/22 05:00 06/17/22 05:00 06/17/22 04:30 06/17/22 04:00 06/17/22 04:00 06/17/22 03:30 06/17/22 04:20 35 06/17/22 03:01 06/17/22 03:01 06/17/22 03:00 06/17/22 02:50 06/17/22 02:40 06/17/22 02:30 06/17/22 02:00 06/17/22 02:00 06/17/22 01:30 06/17/22 01:01 06/17/22 01:01 06/17/22 01:00 06/17/22 00:30 06/17/22 00:01 06/17/22 00:01 06/17/22 00:00 06/16/22 23:30 06/17/22 01:02 06/17/22 01:00 35 06/16/22 23:54 06/16/22 23:02 06/16/22 23:02 06/16/22 23:00 06/16/22 22:30 06/16/22 22:00 06/16/22 21:30 06/16/22 21:01 06/16/22 21:01 06/16/22 21:00 06/16/22 21:11 35 Coding Level of Care Code 34983 Subseq Hosp Care Lvl 3 Diagnoses Respiratory failure with hypoxia J96.91 Influenza A J10.1 Acute hyperglycemia R73.9 Dehydration E86.0 Chronic diastolic CHF (congestive heart failure) I50.32 Paroxysmal atrial fibrillation I48.0 ALMA ROSA (acute kidney injury) N17.9
[2022-06-17] MEDS ORDERED: FUROSEMIDE 40 MG TAB PO SCH (09:00)
[2022-06-17] MEDS ORDERED: LANTUS PER UNIT CHARGE SQ ONE ×2 (09:00→21:00)
[2022-06-17] MEDS: OSELTAMIVIR PHOSPHATE SUSP 30 MG/5 ML UDP PO SCH ×2 (09:01→22:18)
[2022-06-17 10:12] LABS: Partial Thromboplastin Ratio 2.7
[2022-06-17 10:22] LABS: Partial Thromboplastin Time 74.8 Seconds (21.0-31.0)
[2022-06-17] MEDS: METOPROLOL TARTRATE 25 MG TAB PO SCH ×3 (10:38→22:08)
[2022-06-17] MEDS: HEPARIN SODIUM/DEXTROSE 25,000 UNITS/500 ML BAG IV SCH ×2 (11:04→12:29)
--- NOTE | 2022-06-17 12:12 | Cardiology Progress Note ---
Date of Service June 17, 2022 Assessment & Plan (1) Respiratory failure with hypoxia: (2) Influenza A: (3) Chronic diastolic CHF (congestive heart failure): (4) SALAS (obstructive sleep apnea): (5) Morbid obesity: (6) Atrial fibrillation: (7) Pacemaker: Plan Patient is a complex 72-year-old male referral urgently with signs and symptoms of hypoxic respiratory failure. Patient admitted on 06/15/2022 with lethargy and hypoxia with recent history of influenza A. Evidence of right heart failure present currently with mild left heart failure intermittently on x-ray. Underlying issues include persistent atrial fibrillation with tachybradycardia syndrome status post pacemaker, morbid obesity. Patient currently demonstrating declining respiratory status despite treatments. Pulmonology/ICU economic historian consulted 06/17/2022 Clinically improved today with better aeration with mixed respiratory failure as noted. Diuresis did result in worsening renal function Patient responding to pulmonary therapy Recommendations: Continue as ordered. Patient has required high-dose metoprolol for management of heart rate (tachybradycardia syndrome with indwelling pacemaker) may need upward titration of current dose Continue oral digoxin Once hemodynamically stable may be able to transition back from IV heparin to oral apixaban but will need trending improvement in renal function Admission and Anticipated Discharge Date Admission Date: June 15, 2022 Subjective Patient was seen and examined, chart, medications, telemetry reviewed. Patient substantially improved in comparison to prior day Patient eating clear liquid breakfast. Off BiPAP this morning. Denies any chest pains. Heart rates are trending higher with chronic atrial fibrillation present. Rare ventricular pacing Review of Systems Review of Systems: All systems reviewed & are unremarkable except as noted in Subjective Physical Exam Constitutional: + morbidly obese; no acute distress Eyes: PERRL, conjunctivae normal, anicteric sclerae ENMT: external ear and nose normal, oropharynx normal Neck: trachea midline, no thyromegaly + thick neck Respiratory: Auscultation: + diminished lung sounds Cardiovascular: Rate/Rhythm: + tachycardic and + irregularly irregular Heart Sounds: no murmur Extremities: + edema (1+ diffuse) Chest (Breasts): Chest: + pacemaker Gastrointestinal (Abdomen): Percussion/Palpation: abdomen soft Neurologic: PERRL, EOMI, accommodation nl, no face palsy, no dysarthria Results & Data ([facility]) Vital Signs (Past 12 Hours) Vital Signs Temp Pulse Pulse Resp BP Pulse Ox O2 Del Method 06/17/22 11:10 105 H 24 95 Nasal Cannula 06/17/22 10:30 37.3 C 94 H 22 130/79 93 Nasal Cannula 06/17/22 09:14 37.2 C 96 H 24 120/71 96 Nasal Cannula 06/17/22 08:06 37.2 C 88 34 H 104/78 98 Nasal Cannula 06/17/22 08:01 37.2 C 84 24 82/48 L 99 Nasal Cannula 06/17/22 07:30 92 H 25 H 96 06/17/22 07:30 92 H 25 H 96 BiPAP 06/17/22 07:00 37.1 C 97 H 25 H 155/77 H 97 BiPAP 06/17/22 07:00 93 H 06/17/22 07:00 BiPAP 06/17/22 06:15 37.1 C 86 26 H 97 06/17/22 06:01 140/86 06/17/22 06:01 37.1 C 84 23 96 06/17/22 06:00 37.1 C 92 H 25 H 96 06/17/22 05:45 37.1 C 90 27 H 95 06/17/22 05:30 37.1 C 87 28 H 97 06/17/22 05:00 37.1 C 86 25 H 97 06/17/22 05:00 142/76 H 06/17/22 04:30 37.1 C 93 H 24 97 06/17/22 04:00 37.2 C 79 25 H 98 06/17/22 04:00 146/91 H 06/17/22 03:30 37.2 C 98 H 25 H 96 06/17/22 04:20 77 26 H 98 06/17/22 03:01 162/84 H 06/17/22 03:01 37.2 C 91 H 26 H 98 06/17/22 03:00 37.2 C 91 H 26 H 97 06/17/22 02:50 37.2 C 91 H 25 H 97 06/17/22 02:40 37.2 C 79 25 H 95 06/17/22 02:30 37.2 C 83 28 H 96 06/17/22 02:00 90 25 H 96 06/17/22 02:00 100/62 06/17/22 01:30 83 24 96 06/17/22 01:01 109/85 06/17/22 01:01 96 H 26 H 97 06/17/22 01:00 87 24 97 06/17/22 00:30 90 25 H 96 06/17/22 01:02 36.9 C 06/17/22 01:00 83 25 H 95 O2 Flow Rate FiO2 06/17/22 11:10 4 06/17/22 10:30 4 06/17/22 09:14 4 06/17/22 08:06 4 06/17/22 08:01 4 06/17/22 07:30 35 06/17/22 07:30 35 06/17/22 07:00 35 06/17/22 07:00 06/17/22 07:00 35 06/17/22 06:15 06/17/22 06:01 06/17/22 06:01 06/17/22 06:00 06/17/22 05:45 06/17/22 05:30 06/17/22 05:00 06/17/22 05:00 06/17/22 04:30 06/17/22 04:00 06/17/22 04:00 06/17/22 03:30 06/17/22 04:20 35 06/17/22 03:01 06/17/22 03:01 06/17/22 03:00 06/17/22 02:50 06/17/22 02:40 06/17/22 02:30 06/17/22 02:00 06/17/22 02:00 06/17/22 01:30 06/17/22 01:01 06/17/22 01:01 06/17/22 01:00 06/17/22 00:30 06/17/22 01:02 06/17/22 01:00 35 Laboratory Results Laboratory Results - last 24 hr 06/16/22 06/16/22 06/16/22 14:12 14:12 14:12 WBC 10.79 RBC 4.72 Hgb 13.2 L Hct 41.2 MCV 87.3 MCH 28.0 MCHC 32.0 RDW Std Deviation 45.5 RDW Coeff of Baldo 14.3 Plt Count 129 L MPV 11.1 Immature Gran % (Auto) 0.6 Neut % (Auto) 85.5 Lymph % (Auto) 3.3 Rincon % (Auto) 10.5 Eos % (Auto) 0.0 Baso % (Auto) 0.1 Neut # (Auto) 9.23 H Lymph # (Auto) 0.36 L Rincon # (Auto) 1.13 H Eos # (Auto) 0.00 Baso # (Auto) 0.01 Immature Gran # (Auto) 0.06 H APTT PTT Ratio Sodium 133 L Potassium 4.9 Chloride 100 Carbon Dioxide 23 Anion Gap 10 BUN 51 H Creatinine 2.06 H D Est Cr Clr Drug Dosing 47.6 Est GFR ( Amer) 36.7 Est GFR (Non-Af Amer) 31.7 BUN/Creatinine Ratio 24.8 H Glucose 251 H POC Glucose Lactate 1.6 Calcium 9.2 Phosphorus Magnesium Troponin I High Sens 24.9 H TSH Nasal Screen MRSA (PCR) 06/16/22 06/16/22 06/16/22 14:12 14:12 15:08 WBC RBC Hgb Hct MCV MCH MCHC RDW Std Deviation RDW Coeff of Baldo Plt Count MPV Immature Gran % (Auto) Neut % (Auto) Lymph % (Auto) Rincon % (Auto) Eos % (Auto) Baso % (Auto) Neut # (Auto) Lymph # (Auto) Rincon # (Auto) Eos # (Auto) Baso # (Auto) Immature Gran # (Auto) APTT 37.9 H PTT Ratio 1.4 Sodium Potassium Chloride Carbon Dioxide Anion Gap BUN Creatinine Est Cr Clr Drug Dosing Est GFR ( Amer) Est GFR (Non-Af Amer) BUN/Creatinine Ratio Glucose POC Glucose 238 H Lactate Calcium Phosphorus Magnesium Troponin I High Sens TSH 2.027 Nasal Screen MRSA (PCR) 06/16/22 06/16/22 06/16/22 16:15 17:23 18:33 WBC RBC Hgb Hct MCV MCH MCHC RDW Std Deviation RDW Coeff of Baldo Plt Count MPV Immature Gran % (Auto) Neut % (Auto) Lymph % (Auto) Rincon % (Auto) Eos % (Auto) Baso % (Auto) Neut # (Auto) Lymph # (Auto) Rincon # (Auto) Eos # (Auto) Baso # (Auto) Immature Gran # (Auto) APTT PTT Ratio Sodium Potassium Chloride Carbon Dioxide Anion Gap BUN Creatinine Est Cr Clr Drug Dosing Est GFR ( Amer) Est GFR (Non-Af Amer) BUN/Creatinine Ratio Glucose POC Glucose 223 H 212 H 201 H Lactate Calcium Phosphorus Magnesium Troponin I High Sens TSH Nasal Screen MRSA (PCR) 06/16/22 06/16/22 06/16/22 18:45 19:30 20:33 WBC RBC Hgb Hct MCV MCH MCHC RDW Std Deviation RDW Coeff of Baldo Plt Count MPV Immature Gran % (Auto) Neut % (Auto) Lymph % (Auto) Rincon % (Auto) Eos % (Auto) Baso % (Auto) Neut # (Auto) Lymph # (Auto) Rincon # (Auto) Eos # (Auto) Baso # (Auto) Immature Gran # (Auto) APTT PTT Ratio Sodium Potassium Chloride Carbon Dioxide Anion Gap BUN Creatinine Est Cr Clr Drug Dosing Est GFR ( Amer) Est GFR (Non-Af Amer) BUN/Creatinine Ratio Glucose POC Glucose 171 H 190 H Lactate Calcium Phosphorus Magnesium Troponin I High Sens TSH Nasal Screen MRSA (PCR) Negative 06/16/22 06/16/22 06/16/22 21:29 21:36 21:36 WBC RBC Hgb Hct MCV MCH MCHC RDW Std Deviation RDW Coeff of Baldo Plt Count MPV Immature Gran % (Auto) Neut % (Auto) Lymph % (Auto) Rincon % (Auto) Eos % (Auto) Baso % (Auto) Neut # (Auto) Lymph # (Auto) Rincon # (Auto) Eos # (Auto) Baso # (Auto) Immature Gran # (Auto) APTT > 139.0 H* PTT Ratio > 5.1 Sodium Potassium Chloride Carbon Dioxide Anion Gap BUN Creatinine Est Cr Clr Drug Dosing Est GFR ( Amer) Est GFR (Non-Af Amer) BUN/Creatinine Ratio Glucose POC Glucose 189 H Lactate Calcium Phosphorus Magnesium Troponin I High Sens 33.0 H TSH Nasal Screen MRSA (PCR) 06/16/22 06/16/22 06/16/22 22:32 22:58 23:33 WBC RBC Hgb Hct MCV MCH MCHC RDW Std Deviation RDW Coeff of Baldo Plt Count MPV Immature Gran % (Auto) Neut % (Auto) Lymph % (Auto) Rincon % (Auto) Eos % (Auto) Baso % (Auto) Neut # (Auto) Lymph # (Auto) Rincon # (Auto) Eos # (Auto) Baso # (Auto) Immature Gran # (Auto) APTT > 139.0 H* PTT Ratio > 5.1 Sodium Potassium Chloride Carbon Dioxide Anion Gap BUN Creatinine Est Cr Clr Drug Dosing Est GFR ( Amer) Est GFR (Non-Af Amer) BUN/Creatinine Ratio Glucose POC Glucose 162 H 195 H Lactate Calcium Phosphorus Magnesium Troponin I High Sens TSH Nasal Screen MRSA (PCR) 06/17/22 06/17/22 06/17/22 00:31 01:33 02:12 WBC RBC Hgb Hct MCV MCH MCHC RDW Std Deviation RDW Coeff of Baldo Plt Count MPV Immature Gran % (Auto) Neut % (Auto) Lymph % (Auto) Rincon % (Auto) Eos % (Auto) Baso % (Auto) Neut # (Auto) Lymph # (Auto) Rincon # (Auto) Eos # (Auto) Baso # (Auto) Immature Gran # (Auto) APTT PTT Ratio Sodium Potassium Chloride Carbon Dioxide Anion Gap BUN Creatinine Est Cr Clr Drug Dosing Est GFR ( Amer) Est GFR (Non-Af Amer) BUN/Creatinine Ratio Glucose POC Glucose 177 H 177 H Lactate Calcium Phosphorus Magnesium Troponin I High Sens 27.9 H TSH Nasal Screen MRSA (PCR) 06/17/22 06/17/22 06/17/22 02:12 02:27 04:34 WBC RBC Hgb Hct MCV MCH MCHC RDW Std Deviation RDW Coeff of Baldo Plt Count MPV Immature Gran % (Auto) Neut % (Auto) Lymph % (Auto) Rincon % (Auto) Eos % (Auto) Baso % (Auto) Neut # (Auto) Lymph # (Auto) Rincon # (Auto) Eos # (Auto) Baso # (Auto) Immature Gran # (Auto) APTT 47.6 H* PTT Ratio 1.7 Sodium Potassium Chloride Carbon Dioxide Anion Gap BUN Creatinine Est Cr Clr Drug Dosing Est GFR ( Amer) Est GFR (Non-Af Amer) BUN/Creatinine Ratio Glucose POC Glucose 134 H 114 H Lactate Calcium Phosphorus Magnesium Troponin I High Sens TSH Nasal Screen MRSA (PCR) 06/17/22 06/17/22 06/17/22 05:32 05:32 05:35 WBC 12.77 H RBC 4.62 L Hgb 12.9 L Hct 40.1 MCV 86.8 MCH 27.9 MCHC 32.2 RDW Std Deviation 44.6 RDW Coeff of Baldo 14.3 Plt Count 152 MPV 11.5 Immature Gran % (Auto) 0.5 Neut % (Auto) 86.1 Lymph % (Auto) 6.4 Rincon % (Auto) 6.9 Eos % (Auto) 0.0 Baso % (Auto) 0.1 Neut # (Auto) 11.00 H Lymph # (Auto) 0.82 L Rincon # (Auto) 0.88 H Eos # (Auto) 0.00 Baso # (Auto) 0.01 Immature Gran # (Auto) 0.06 H APTT PTT Ratio Sodium 135 L Potassium 4.0 Chloride 101 Carbon Dioxide 25 Anion Gap 9 BUN 59 H Creatinine 1.94 H Est Cr Clr Drug Dosing 49.9 Est GFR ( Amer) 39.5 Est GFR (Non-Af Amer) 34.1 BUN/Creatinine Ratio 30.4 H Glucose 107 H POC Glucose 102 H Lactate Calcium 9.2 Phosphorus 4.5 D Magnesium 2.4 Troponin I High Sens TSH Nasal Screen MRSA (PCR) 06/17/22 06/17/22 06/17/22 06:36 07:00 08:01 WBC RBC Hgb Hct MCV MCH MCHC RDW Std Deviation RDW Coeff of Baldo Plt Count MPV Immature Gran % (Auto) Neut % (Auto) Lymph % (Auto) Rincon % (Auto) Eos % (Auto) Baso % (Auto) Neut # (Auto) Lymph # (Auto) Rincon # (Auto) Eos # (Auto) Baso # (Auto) Immature Gran # (Auto) APTT PTT Ratio Sodium Potassium Chloride Carbon Dioxide Anion Gap BUN Creatinine Est Cr Clr Drug Dosing Est GFR ( Amer) Est GFR (Non-Af Amer) BUN/Creatinine Ratio Glucose POC Glucose 91 99 109 H Lactate Calcium Phosphorus Magnesium Troponin I High Sens TSH Nasal Screen MRSA (PCR) 06/17/22 06/17/22 09:23 11:26 WBC RBC Hgb Hct MCV MCH MCHC RDW Std Deviation RDW Coeff of Baldo Plt Count MPV Immature Gran % (Auto) Neut % (Auto) Lymph % (Auto) Rincon % (Auto) Eos % (Auto) Baso % (Auto) Neut # (Auto) Lymph # (Auto) Rincon # (Auto) Eos # (Auto) Baso # (Auto) Immature Gran # (Auto) APTT 74.8 H* PTT Ratio 2.7 Sodium Potassium Chloride Carbon Dioxide Anion Gap BUN Creatinine Est Cr Clr Drug Dosing Est GFR ( Amer) Est GFR (Non-Af Amer) BUN/Creatinine Ratio Glucose POC Glucose 205 H Lactate Calcium Phosphorus Magnesium Troponin I High Sens TSH Nasal Screen MRSA (PCR) (1) Atrial fibrillation Atrial fibrillation type: unspecified Qualified Code(s): I48.91 - Unspecified atrial fibrillation
--- NOTE | 2022-06-17 13:12 | XRay Report ---
XR chest 1V portable CLINICAL HISTORY: Resp failure TECHNIQUE: Single frontal radiograph of the chest was obtained. Comparison: Comparison is made to chest radiograph 06/16/2022 FINDINGS: Dual lead pacemaker is seen. Cardiomegaly is noted. The aortic arch is calcified. Prominence and ceph alization of the vasculature is seen. Interval improvement of bilateral lower lung airspace opacities . No evidence of pleural effusion or pneumothorax. IMPRESSION: 1. Mild pulmonary edema, improved from prior exam. Stable cardiomegaly. 2. Small bilateral lower lung airspace opacities are improved from prior exam and may represent atel ectasis, pneumonia, and/or aspiration, less likely alveolar edema. ACT 112: Negative or not required by law. Electronically signed by: Benji Correa M.D. 06/17/2022 1:11 PM
--- NOTE | 2022-06-17 13:33 | Pharmacy Report ---
Pharmacy Glycemic Short Note 2 - Date of Service June 17, 2022 - Glycemic Short BSG Results (Last 24 hours): 06/16/22 06/16/22 06/16/22 14:12 15:08 16:15 Glucose 251 H POC Glucose 238 H 223 H 06/16/22 06/16/22 06/16/22 17:23 18:33 19:30 Glucose POC Glucose 212 H 201 H 171 H 06/16/22 06/16/22 06/16/22 20:33 21:29 22:32 Glucose POC Glucose 190 H 189 H 162 H 06/16/22 06/17/22 06/17/22 23:33 00:31 01:33 Glucose POC Glucose 195 H 177 H 177 H 06/17/22 06/17/22 06/17/22 02:27 04:34 05:32 Glucose 107 H POC Glucose 134 H 114 H 06/17/22 06/17/22 06/17/22 05:35 06:36 07:00 Glucose POC Glucose 102 H 91 99 06/17/22 06/17/22 08:01 11:26 Glucose POC Glucose 109 H 205 H OUTPATIENT ANTIDIABETIC REGIMEN: * Lantus 100 units SQ QAM & 55 units HS * Novolin R 12 unts SQ ACHS ASSESSMENT: 06/17: * The insulin infusion was held ~ 0630 this morning due to significant decrease in BSG. Discussed with provider and proceeded with a basal/bolus regimen and elected to continue to hold the drip at this time. As patient was ordered a clear liquid diet only this morning, a more conservative AM dose was ordered. Will add a lantus scale for this evening as well as overnight BSG checks and coverage as appropriate. * In the past, patient has had varying requirements and BSGs have fluctuated greatly. * Steroids were not continued but patient does remain on a heparin infusion ~26 units/hr 06/16 * Received 40 units basal insulin yesterday evening on admission. Unsure of morning basal dose given prior to admission. Fasting BSG was 238 mg/dl this morning. Could be elevated due to one dose of Solumedrol. Patient known to glycemic service on previous admissions to receive 100 - 120 units of basal insulin. NPO today therefore received a one time basal dose of 60 units this morning. On CF of 10 and Carb ratio of 3 * Patient oxygen status worsening, transferred to the ICU. Plan to start Insulin drip per ICU protocol this afternoon. PLAN FOR INPATIENT GLYCEMIC CONTROL: * Basal inusulin: * Lantus 55 units * Lantus scale 0,20,30 units based on BSG-See MAR for details. * Bolus insulin * NovoLog per scale ACHS or Q6hrs while NPO and overnight checks * Goal Range: Low 110 mg/dL - High 140 mg/dL * Correction Factor: 12 mg/dL/unit * Nutritional / Prandial insulin per carb ratio of 1 unit per 4 grams CHO consumed
--- NOTE | 2022-06-17 15:38 | Hospitalist Progress Note ---
Date of Service June 17, 2022 Assessment & Plan (1) Respiratory failure with hypoxia: Plan 72-year-old male with PMH of morbid obesity, HFpEF [TTE F 50 to 60%], SSS status post PPM/PE on anticoagulation, COPD/ILD, SALAS on CPAP, DM 2 on insulin, hypothyroidism, CKD [baseline 1.5-2], chronic anemia presented to ED 06/15 from [facility] NF d/t being lethargic and SPO2 85 to 88 % on RA. Patient was found to have flow at ED, CXR with concern of mild pulmonary edema at . He is being managed for the following: Acute hypoxic respiratory failure: Likely secondary to influenza and acute on chronic diastolic heart failure Acute on chronic diastolic heart failure Sepsis POA 2/2 viral infection & Influenza : Respiratory rate and temperature elevated at presentation. Possible superimposed bacterial infection Acute metabolic encephalopathy Patient was admitted due to concern of hypoxia and encephalopathy at [facility] on the day of arrival. Admitting WBC and Pro-Sreedhar WNL, admitting BNP 340/elevated from prior. Admitting temperature of 39.2C Admitting CXR with mild pulmonary edema. 12/28/2021 echo: EF 55 to 60%, study was technically difficult. 06/16 CT Chest: 1. Patchy bilateral perihilar airspace opacities with areas of dense consolidation within the bilateral lower lobes. This favors a pneumonia and could be due to aspiration. 2. There is also mild interlobular septal thickening. This raises the possibility of superimposed mild pulmonary edema. 3. Interval progression of the extensive mediastinal and bilateral hilar lymphadenopathy. The bilateral hilar lymph nodes result in mild to moderate narrowing of the central airways. This could be reactive to the suspected pneumonia. However, a neoplastic process remains the diagnosis of exclusion. Follow-up recommended to ensure stability/resolution. Consider follow-up pulmonary consultation. 4. Trace bilateral pleural effusions. 5. Additional findings as described above. Encephalopathy secondary to acute illness and hypoxia --> improved. Acute on chronic diastolic failure, cardiology on board, will need diuresis, monitor renal function, Valentine, I's and O's. c/w BiPAP, ICU monitoring, continue with Zosyn started 06/16, continue with doxycycline, follow 08/16 blood culture --[id number]. Continue Tamiflu. Pulm f/u as OP. Acute kidney injury: Likely cardiorenal syndrome, CTAP w/ no hydronephrosis, Valentine in place, monitor labs, avoid nephrotoxins, cautious diuresis due to need because of ongoing acute on chronic heart failure. H/O A. fib and pacemaker placement: Eliquis on hold, patient on heparin infusion. Other chronic medical conditions: Resume meds as able. DVT prophylaxis: Heparin infusion Full code Dispo: Pt being managed in ICU. 06/16: Patient's daughter Bing was given a phone call and updated regarding worsening respiratory status and need to transfer the patient down to ICU, answered all her questions to her full satisfaction. Admission and Anticipated Discharge Date Admission Date: June 15, 2022 Subjective Patient seen and examined at bedside as a follow-up of acute hypoxic respiratory failure and encephalopathy secondary to influenza A, acute on chronic diastolic heart failure, acute kidney injury. Patient was sitting up in Chair, on NC O2 4L, alert and oriented, appears comfo rtable, reports no new issues overnight, reports eating okay, has not moved bowels since admission [reports usual bowel habits every 2 to 3 days], denies other review of symptoms. Physical Exam Physical Exam: GENERAL: Alert and oriented, on 4 L nasal cannula oxygen, NAD. Obese class III. HEENT: No pallor, no icterus. Pupils equal, round and reactive to light. Oral mucosa moist. NECK: No JVD, no neck masses. HEART: S1 and S2 heard. Tachycardia and irregular. No murmur, no gallop. RESPIRATORY SYSTEM: Normal AP diameter. No accessory muscle use. No wheezing, bilateral mid and basal crackles ABDOMEN: Soft, bowel sounds present, nontender, no distention. CENTRAL NERVOUS SYSTEM: No facial droop. Speech is clear. Obeys simple commands. Moves extremities. EXTREMITIES:1+ ble edema, chronic skin changes ble, no erythema seen. Results & Data Results & Data ([facility]) Vital Signs (Past 12 Hours) Vital Signs Temp Pulse Pulse Resp BP Pulse Ox O2 Del Method 06/17/22 15:25 115 H 15 96 Nasal Cannula 06/17/22 13:08 96 H 27 H 98 06/17/22 12:01 37.3 C 106 H 31 H 130/94 96 Nasal Cannula 06/17/22 11:42 37.3 C 107 H 37 H 124/82 95 Nasal Cannula 06/17/22 11:00 37.3 C 92 H 34 H 133/92 94 Nasal Cannula 06/17/22 11:10 105 H 24 95 Nasal Cannula 06/17/22 10:30 37.3 C 94 H 22 130/79 93 Nasal Cannula 06/17/22 09:14 37.2 C 96 H 24 120/71 96 Nasal Cannula 06/17/22 08:06 37.2 C 88 34 H 104/78 98 Nasal Cannula 06/17/22 08:01 37.2 C 84 24 82/48 L 99 Nasal Cannula 06/17/22 07:30 92 H 25 H 96 06/17/22 07:30 92 H 25 H 96 BiPAP 06/17/22 07:00 37.1 C 97 H 25 H 155/77 H 97 BiPAP 06/17/22 07:00 93 H 06/17/22 07:00 BiPAP 06/17/22 06:15 37.1 C 86 26 H 97 06/17/22 06:01 140/86 06/17/22 06:01 37.1 C 84 23 96 06/17/22 06:00 37.1 C 92 H 25 H 96 06/17/22 05:45 37.1 C 90 27 H 95 06/17/22 05:30 37.1 C 87 28 H 97 06/17/22 05:00 37.1 C 86 25 H 97 06/17/22 05:00 142/76 H 06/17/22 04:30 37.1 C 93 H 24 97 06/17/22 04:00 37.2 C 79 25 H 98 06/17/22 04:00 146/91 H 06/17/22 04:20 77 26 H 98 O2 Flow Rate FiO2 06/17/22 15:25 4 06/17/22 13:08 35 06/17/22 12:01 4 06/17/22 11:42 4 06/17/22 11:00 4 06/17/22 11:10 4 06/17/22 10:30 4 06/17/22 09:14 4 06/17/22 08:06 4 06/17/22 08:01 4 06/17/22 07:30 35 06/17/22 07:30 35 06/17/22 07:00 35 06/17/22 07:00 06/17/22 07:00 35 06/17/22 06:15 06/17/22 06:01 06/17/22 06:01 06/17/22 06:00 06/17/22 05:45 06/17/22 05:30 06/17/22 05:00 06/17/22 05:00 06/17/22 04:30 06/17/22 04:00 06/17/22 04:00 06/17/22 04:20 35
[2022-06-17] MEDS: DIGOXIN 0.125 MG TAB PO SCH (16:01)
--- NOTE | 2022-06-17 16:40 | Electrocardiogram Report ---
Test Reason : Blood Pressure : / mmHG Vent. Rate : 092 BPM Atrial Rate : 093 BPM P-R Int : 000 ms QRS Dur : 160 ms QT Int : 436 ms P-R-T Axes : 000 -72 087 degrees QTc Int : 539 ms Atrial fibrillation Left axis deviation Right bundle branch block Inferior infarct , age undetermined Abnormal ECG When compared with ECG of 16-JUN-2022 13:03, Atrial fibrillation has replaced Electronic ventricular pacemaker Confirmed by Jim Davenport ([id number]) on 06/17/2022 4:39:44 PM Referred By: [facility] Confirmed By:Jim Davenport
[2022-06-17 17:04] LABS: Partial Thromboplastin Ratio 2.9
[2022-06-17 17:25] LABS: Partial Thromboplastin Time 79.1 Seconds (21.0-31.0)
[2022-06-18 00:17] LABS: Partial Thromboplastin Ratio 2.9
[2022-06-18 00:21] LABS: Partial Thromboplastin Time 78.9 Seconds (21.0-31.0)
[2022-06-18] MEDS: INSULIN ASPART PER UNIT SC SCH ×6 (00:55→20:53)
[2022-06-18] MEDS: HEPARIN SODIUM/DEXTROSE 25,000 UNITS/500 ML BAG IV SCH (00:55)
[2022-06-18] MEDS: PIPERACILLIN/TAZOBACTAM 4.5 GM in DEXTROSE 5% 100 ML IV SCH ×2 (02:25→10:32)
[2022-06-18] MEDS: ARTIFICIAL TEARS OP SCH ×9 (05:48→21:30)
[2022-06-18] MEDS: DOXYCYCLINE HYCLATE 100 MG in DEXTROSE 5% 100 ML IV SCH ×2 (05:48→17:07)
[2022-06-18] MEDS: LEVOTHYROXINE SODIUM 125 MCG TABLET PO SCH (05:49)
[2022-06-18 06:50] LABS: Basophils # (auto) 0.03 K/uL (0-0.2); Basophils % (auto) 0.3 %; Eosinophils # (auto) 0.06 K/uL (0-0.50); Eosinophils % (auto) 0.6 %; Hemoglobin 12.9 g/dl (14.0-18.0); Immature Granulocytes # (auto) 0.03 K/uL (0.00-0.02); Immature Granulocytes % (auto) 0.3 %; Lymphocytes # (auto) 1.03 K/uL (1.2-3.4); Lymphocytes % (auto) 11.1 %; Mean Corpuscular Hemoglobin 27.7 pg (25.0-34.0); Mean Corpuscular Hgb Conc 31.5 g/dL (32.0-36.0); Monocytes # (auto) 0.97 K/uL (0.24-0.82); Monocytes % (auto) 10.4 %; Neutrophils # (auto) 7.17 K/uL (1.4-6.5); Neutrophils % (auto) 77.3 %; Platelet Count 150 K/uL (130-400); RDW Coefficient of Variation 14.4 % (11.5-14.5); RDW Standard Deviation 45.9 fL (36.4-46.3); Red Blood Count 4.66 M/uL (4.63-6.08); White Blood Count 9.29 K/ul (4.8-10.8)
[2022-06-18 07:22] LABS: BUN Creatinine Ratio 33.3 (10-20); Calcium 8.9 mg/dl (8.5-10.1); Creatinine Clr Calc Pharmacy 68.7 ml/min; Est GFR (African American) 58.1 ml/min; Est GFR (Non-African American) 50.1 ml/min; Magnesium 2.3 mg/dl (1.7-2.4); Phosphorus 3.3 mg/dl (2.5-4.9); Potassium 3.9 mmol/L (3.5-5.1)
[2022-06-18] MEDS: LEVALBUTEROL 1.25MG/0.5ML NEB INH SCH ×4 (07:51→19:20)
[2022-06-18] MEDS: SODIUM CHLOR 7% 4 ML NEB NEB SCH ×2 (07:51→19:20)
[2022-06-18] MEDS: IPRATROPIUM BROMIDE NEB SOLN 0.02% 2.5 ML VIAL INH SCH ×4 (07:52→19:20)
[2022-06-18 08:05] LABS: Partial Thromboplastin Ratio 2.1
[2022-06-18 08:07] LABS: Partial Thromboplastin Time 58.3 Seconds (21.0-31.0)
[2022-06-18] MEDS: ATORVASTATIN 10 MG TAB PO SCH (08:10)
[2022-06-18] MEDS: MULTIVITAMIN TAB PO SCH (08:10)
[2022-06-18] MEDS: SENNA 8.6 MG TAB PO SCH ×2 (08:10→20:58)
[2022-06-18] MEDS: METOPROLOL TARTRATE 25 MG TAB PO SCH (08:11)
[2022-06-18] MEDS: PANTOprazole 40 MG TAB PO SCH (08:12)
[2022-06-18] MEDS: OSELTAMIVIR PHOSPHATE SUSP 30 MG/5 ML UDP PO SCH (08:31)
[2022-06-18] MEDS: POTASSIUM CHLORIDE CRTAB 20 MEQ TABCR PO SCH (08:31)
[2022-06-18] MEDS: NYSTATIN POWDER 15GM BTL EXT SCH ×2 (08:33→20:56)
[2022-06-18] MEDS: ERYTHROMYCIN OP OINT 5 MG/GM 3.5 GM TUBE OPB SCH (08:34)
[2022-06-18] MEDS: MAGNESIUM OXIDE 400 MG TAB PO SCH (08:35)
[2022-06-18] MEDS ORDERED: LANTUS PER UNIT CHARGE SQ ONE ×2 (09:00→21:00)
--- NOTE | 2022-06-18 09:08 | Hospitalist Progress Note ---
Date of Service June 18, 2022 Assessment & Plan (1) Respiratory failure with hypoxia: Plan 72 yo M w/ morbid obesity, HFpEF [TTE F 50 to 60%], SSS status post PPM/PE on anticoagulation, COPD/ILD, SALAS on CPAP, DM 2 on insulin, hypothyroidism, CKD [baseline 1.5-2], chronic anemia presented to ED 06/15 from [facility] NF d/t being lethargic and SPO2 85 to 88 % on RA. Patient was found to have flu A at ED, CXR with concern of mild pulmonary edema at presentation. He is being managed for the following: Acute hypoxic respiratory failure: Likely secondary to influenza and acute on chronic diastolic heart failure Acute on chronic diastolic heart failure Sepsis POA 2/2 viral infection & Influenza : Respiratory rate and temperature elevated at presentation. Possible superimposed bacterial infection Acute metabolic encephalopathy Patient was admitted due to concern of hypoxia and encephalopathy at [facility] on the day of arrival. Admitting WBC and Pro-Sreedhar WNL, admitting BNP 340/elevated from prior. Admitting temperature of 39.2C Admitting CXR with mild pulmonary edema. 12/28/2021 echo: EF 55 to 60%, study was technically difficult. 06/16 CT Chest: 1. Patchy bilateral perihilar airspace opacities with areas of dense consolidation within the bilateral lower lobes. This favors a pneumonia and could be due to aspiration. 2. There is also mild interlobular septal thickening. This raises the possibility of superimposed mild pulmonary edema. 3. Interval progression of the extensive mediastinal and bilateral hilar lymphadenopathy. The bilateral hilar lymph nodes result in mild to moderate narrowing of the central airways. This could be reactive to the suspected pneumonia. However, a neoplastic process remains the diagnosis of exclusion. Follow-up recommended to ensure stability/resolution. Consider follow-up pulmonary consultation. 4. Trace bilateral pleural effusions. 5. Additional findings as described above. Encephalopathy secondary to acute illness and hypoxia --> improved. Acute on chronic diastolic failure, cardiology consulted, was diuresed - renal function worsened w. diuresis - monitor renal function, Valentine, I's and O's. c/w BiPAP, close hemodynamic monitoring, continued with Zosyn started 06/16, -> switch to Unasyn 06/18, continue with doxycycline, follow 08/16 blood culture --[id number]. Continue Tamiflu. Pulmonary medicine f/u as OP. Acute kidney injury: Likely cardiorenal syndrome, CTAP w/ no hydronephrosis, Valentine in place, monitor labs, avoid nephrotoxins, cautious diuresis due to need because of ongoing acute on chronic heart failure. H/O A. fib and pacemaker placement: Eliquis on hold, patient on heparin infusion. Continues to be in Afib w/ RVR,cardiology following- cont. digoxin, metoprolol tartrate switched to succinate Other chronic medical conditions: Resume meds as able. DVT prophylaxis: Heparin infusion Full code Dispo: PCU 06/16: Patient's daughter Bing was given a phone call and updated regarding worsening respiratory status and need to transfer the patient down to ICU, by my colleague Admission and Anticipated Discharge Date Admission Date: June 15, 2022 Subjective Patient seen in follow-up of acute hypoxic respiratory failure and encephalopathy secondary to influenza A, Afib w/ RVR,acute on chronic diastolic heart failure, acute kidney injury. Currently pt is sitting up in chair, on NC, alert and oriented, appears comfortable, reports no new issues overnight No chest pain , palpitations, increase shortness of breath, even though patient is tachycardic Per RN, easily desaturates with movement Review of Systems Review of Systems: All systems reviewed & are unremarkable except as noted in Subjective Physical Exam Physical Exam: GENERAL: Alert and oriented, on lacey al cannula oxygen, NAD. Obese class III. HEENT: No p allor, no icterus. Pupils equal, ro und and reactive t o light. Oral muc saals moist. NECK: thick and short HE ART: S1 and S2 he kayla. Tachycardia and irregular. No murmur, no gallop . RESPIRATORY: No rmal AP diameter. No accessory musc le use. No wheezi ng, bilateral mid and basal rhonchi/ crackles ABDOMEN: Soft, bowel sound s present, nontend er, no distention. NEURO: No facial droop. Speech is clear. Answers a ppropriately. Move s extremities. EXT REMITIES:1+ ble e radha, chronic skin changes ble Results & Data Results & Data ([facility]) Vital Signs (Past 12 Hours) Vital Signs Temp Pulse Pulse Resp BP BP Pulse Ox 06/18/22 07:30 36.6 C 115 H 23 97/76 L 97 06/18/22 07:52 79 18 97 06/18/22 06:00 125 H 33 H 94 06/18/22 05:00 120 H 27 H 99 06/18/22 04:01 113 H 21 100 06/18/22 04:01 97/75 L 06/18/22 04:00 37.4 C 109 H 27 H 100 06/18/22 03:00 113 H 24 99 06/18/22 02:01 110 H 26 H 99 06/18/22 02:01 102/70 06/18/22 02:00 111 H 25 H 99 06/18/22 03:20 112 H 26 H 100 06/18/22 01:02 114 H 29 H 97 06/18/22 01:02 112/91 06/18/22 01:00 127 H 32 H 98 06/18/22 00:01 119 H 31 H 89 L 06/18/22 00:01 37.1 C 112/86 06/18/22 00:00 108 H 29 H 84 L 06/17/22 23:01 138/84 06/17/22 23:01 112 H 18 97 06/17/22 23:00 113 H 30 H 97 06/17/22 22:01 138/100 06/17/22 22:01 95 H 16 99 06/17/22 22:00 118 H 24 98 06/17/22 23:15 104 H 24 94 O2 Del Method O2 Flow Rate FiO2 06/18/22 07:30 Nasal Cannula 2.5 06/18/22 07:52 Nasal Cannula 4 06/18/22 06:00 06/18/22 05:00 06/18/22 04:01 06/18/22 04:01 06/18/22 04:00 06/18/22 03:00 06/18/22 02:01 06/18/22 02:01 06/18/22 02:00 06/18/22 03:20 35 06/18/22 01:02 06/18/22 01:02 06/18/22 01:00 06/18/22 00:01 06/18/22 00:01 06/18/22 00:00 06/17/22 23:01 06/17/22 23:01 06/17/22 23:00 06/17/22 22:01 06/17/22 22:01 06/17/22 22:00 06/17/22 23:15 2.5 Laboratory Results 06/18/22 06/18/22 06/18/22 Range/Units 07:20 06:33 06:33 WBC (4.8-10.8) K/ul RBC (4.63-6.08) M/uL Hgb (14.0-18.0) g/dl Hct (40.1-51.0) % MCV (80.0-100.0) fL MCH (25.0-34.0) pg MCHC (32.0-36.0) g/dL RDW Std Deviation (36.4-46.3) fL RDW Coeff of Baldo (11.5-14.5) % Plt Count (130-400) K/uL MPV (9.4-12.4) fL Immature Gran % (Auto) % Neut % (Auto) % Lymph % (Auto) % [place] % (Auto) % Eos % (Auto) % Baso % (Auto) % Neut # (Auto) (1.4-6.5) K/uL Lymph # (Auto) (1.2-3.4) K/uL [place] # (Auto) (0.24-0.82) K/uL Eos # (Auto) (0-0.50) K/uL Baso # (Auto) (0-0.2) K/uL Immature Gran # (Auto) (0.00-0.02) K/uL APTT 58.3 H* (21.0-31.0) Seconds PTT Ratio 2.1 Sodium 135 L (136-145) mmol/L Potassium 3.9 (3.5-5.1) mmol/L Chloride 101 (98-107) mmol/L Carbon Dioxide 27 (21-32) mmol/L Anion Gap 7 (3-11) BUN 47 H (6-23) mg/dl Creatinine 1.41 H D (0.6-1.4) mg/dl Est Cr Clr Drug Dosing 68.7 ml/min Est GFR ( Amer) 58.1 ml/min Est GFR (Non-Af Amer) 50.1 ml/min BUN/Creatinine Ratio 33.3 H (10-20) Glucose 186 H (70-99(Fasting)) mg/dl POC Glucose 191 H (70-99) mg/dl Calcium 8.9 (8.5-10.1) mg/dl Phosphorus 3.3 D (2.5-4.9) mg/dl Magnesium 2.3 (1.7-2.4) mg/dl 06/18/22 06/18/22 06/18/22 Range/Units 06:33 04:35 00:50 WBC 9.29 (4.8-10.8) K/ul RBC 4.66 (4.63-6.08) M/uL Hgb 12.9 L (14.0-18.0) g/dl Hct 41.0 (40.1-51.0) % MCV 88.0 (80.0-100.0) fL MCH 27.7 (25.0-34.0) pg MCHC 31.5 L (32.0-36.0) g/dL RDW Std Deviation 45.9 (36.4-46.3) fL RDW Coeff of Baldo 14.4 (11.5-14.5) % Plt Count 150 (130-400) K/uL MPV 11.0 (9.4-12.4) fL Immature Gran % (Auto) 0.3 % Neut % (Auto) 77.3 % Lymph % (Auto) 11.1 % [place] % (Auto) 10.4 % Eos % (Auto) 0.6 % Baso % (Auto) 0.3 % Neut # (Auto) 7.17 H (1.4-6.5) K/uL Lymph # (Auto) 1.03 L (1.2-3.4) K/uL [place] # (Auto) 0.97 H (0.24-0.82) K/uL Eos # (Auto) 0.06 (0-0.50) K/uL Baso # (Auto) 0.03 (0-0.2) K/uL Immature Gran # (Auto) 0.03 H (0.00-0.02) K/uL APTT (21.0-31.0) Seconds PTT Ratio Sodium (136-145) mmol/L Potassium (3.5-5.1) mmol/L Chloride (98-107) mmol/L Carbon Dioxide (21-32) mmol/L Anion Gap (3-11) BUN (6-23) mg/dl Creatinine (0.6-1.4) mg/dl Est Cr Clr Drug Dosing ml/min Est GFR ( Amer) ml/min Est GFR (Non-Af Amer) ml/min BUN/Creatinine Ratio (10-20) Glucose (70-99(Fasting)) mg/dl POC Glucose 215 H 229 H (70-99) mg/dl Calcium (8.5-10.1) mg/dl Phosphorus (2.5-4.9) mg/dl Magnesium (1.7-2.4) mg/dl 06/17/22 06/17/22 06/17/22 Range/Units 23:11 22:00 16:23 WBC (4.8-10.8) K/ul RBC (4.63-6.08) M/uL Hgb (14.0-18.0) g/dl Hct (40.1-51.0) % MCV (80.0-100.0) fL MCH (25.0-34.0) pg MCHC (32.0-36.0) g/dL RDW Std Deviation (36.4-46.3) fL RDW Coeff of Baldo (11.5-14.5) % Plt Count (130-400) K/uL MPV (9.4-12.4) fL Immature Gran % (Auto) % Neut % (Auto) % Lymph % (Auto) % [place] % (Auto) % Eos % (Auto) % Baso % (Auto) % Neut # (Auto) (1.4-6.5) K/uL Lymph # (Auto) (1.2-3.4) K/uL [place] # (Auto) (0.24-0.82) K/uL Eos # (Auto) (0-0.50) K/uL Baso # (Auto) (0-0.2) K/uL Immature Gran # (Auto) (0.00-0.02) K/uL APTT 78.9 H* 79.1 H* (21.0-31.0) Seconds PTT Ratio 2.9 2.9 Sodium (136-145) mmol/L Potassium (3.5-5.1) mmol/L Chloride (98-107) mmol/L Carbon Dioxide (21-32) mmol/L Anion Gap (3-11) BUN (6-23) mg/dl Creatinine (0.6-1.4) mg/dl Est Cr Clr Drug Dosing ml/min Est GFR ( Amer) ml/min Est GFR (Non-Af Amer) ml/min BUN/Creatinine Ratio (10-20) Glucose (70-99(Fasting)) mg/dl POC Glucose 239 H (70-99) mg/dl Calcium (8.5-10.1) mg/dl Phosphorus (2.5-4.9) mg/dl Magnesium (1.7-2.4) mg/dl 06/17/22 06/17/22 06/17/22 Range/Units 16:06 11:26 09:23 WBC (4.8-10.8) K/ul RBC (4.63-6.08) M/uL Hgb (14.0-18.0) g/dl Hct (40.1-51.0) % MCV (80.0-100.0) fL MCH (25.0-34.0) pg MCHC (32.0-36.0) g/dL RDW Std Deviation (36.4-46.3) fL RDW Coeff of Baldo (11.5-14.5) % Plt Count (130-400) K/uL MPV (9.4-12.4) fL Immature Gran % (Auto) % Neut % (Auto) % Lymph % (Auto) % [place] % (Auto) % Eos % (Auto) % Baso % (Auto) % Neut # (Auto) (1.4-6.5) K/uL Lymph # (Auto) (1.2-3.4) K/uL [place] # (Auto) (0.24-0.82) K/uL Eos # (Auto) (0-0.50) K/uL Baso # (Auto) (0-0.2) K/uL Immature Gran # (Auto) (0.00-0.02) K/uL APTT 74.8 H* (21.0-31.0) Seconds PTT Ratio 2.7 Sodium (136-145) mmol/L Potassium (3.5-5.1) mmol/L Chloride (98-107) mmol/L Carbon Dioxide (21-32) mmol/L Anion Gap (3-11) BUN (6-23) mg/dl Creatinine (0.6-1.4) mg/dl Est Cr Clr Drug Dosing ml/min Est GFR ( Amer) ml/min Est GFR (Non-Af Amer) ml/min BUN/Creatinine Ratio (10-20) Glucose (70-99(Fasting)) mg/dl POC Glucose 228 H 205 H (70-99) mg/dl Calcium (8.5-10.1) mg/dl Phosphorus (2.5-4.9) mg/dl Magnesium (1.7-2.4) mg/dl Medications Administered Current Inpatient Medications Acetaminophen (Acetaminophen 325 Mg Tab) 650 mg PO Q4H PRN PRN Reason: Pain or Fever Stop: 07/15/22 15:34 Last Admin: 06/16/22 02:30 Dose: 650 mg Al Hydrox/Mg Hydrox/Simethicone (Aluminum/Magnesium Susp 30 Ml Udc) 15 ml PO Q4H PRN PRN Reason: Dyspepsia Stop: 07/15/22 15:34 Allopurinol (Allopurinol 300 Mg Tab) 300 mg PO DAILY OFE Stop: 07/16/22 08:59 Last Admin: 06/16/22 10:21 Dose: 300 mg Apixaban (Apixaban 5 Mg Tablet) 5 mg PO Q12 OFE Stop: 07/15/22 20:59 Last Admin: 06/15/22 20:22 Dose: 5 mg Artificial Tears (Artificial Tears) 1 drops OP Q2HWA [facility] Stop: 07/15/22 16:48 Last Admin: 06/18/22 08:07 Dose: 1 drops Aspirin (Aspirin 81 Mg Ectab) 81 mg PO DAILY [facility] Stop: 07/16/22 08:59 Last Admin: 06/16/22 10:21 Dose: 81 mg Atorvastatin Calcium (Atorvastatin 10 Mg Tab) 10 mg PO DAILY OFE Stop: 07/16/22 08:59 Last Admin: 06/18/22 08:10 Dose: 10 mg Bupropion HCl (Bupropion Xl 150 Mg Tabcr) 150 mg PO DAILY [facility] Stop: 07/16/22 08:59 Dextrose (Dextrose 50% 50 Ml Syringe) 25 - 50 ml IV UD PRN; Protocol PRN Reason: Hypoglycemia Protocol Stop: 07/15/22 15:56 Digoxin (Digoxin 0.125 Mg Tab) 0.125 mg PO DAILY@1600 [facility] Stop: 07/16/22 15:59 Last Admin: 06/17/22 16:01 Dose: 0.125 mg Duloxetine HCl (Duloxetine Hcl 60 Mg Cap) 60 mg PO DAILY [facility] Stop: 07/16/22 08:59 Last Admin: 06/16/22 10:21 Dose: 60 mg Erythromycin (Erythromycin Op Oint 5 Mg/Gm 3.5 Gm Tube) 1 appln OPB DAILY OFE Stop: 06/26/22 08:59 Last Admin: 06/18/22 08:34 Dose: 1 appln Gabapentin (Gabapentin 300 Mg Cap) 300 mg PO QID OFE Stop: 07/15/22 16:59 Last Admin: 06/15/22 20:19 Dose: 300 mg Glucagon (Glucagon For Inj 1 Mg Vial) 1 mg SQ UD PRN; Protocol PRN Reason: Hypoglycemia Protocol Stop: 07/15/22 15:56 Glucose (Glucose 40% Gel 15 Gm Tube) 15 - 30 gm PO UD PRN; Protocol PRN Reason: Hypoglycemia Protocol Stop: 07/15/22 15:56 Glucose (Glucose 10 Tab/Tube) 4 - 8 tab PO UD PRN; Protocol PRN Reason: Hypoglycemia Treatment Stop: 07/15/22 15:56 Doxycycline Hyclate 100 mg/ (Dextrose) 110 mls @ 50 mls/hr IV Q12H [facility] Stop: 06/20/22 08:11 Last Infusion: 06/18/22 08:00 Dose: Infused Piperacillin Sod/Tazobactam (Sod 4.5 gm/ Dextrose) 120 mls @ 30 mls/hr IV Q8H [facility]; Protocol Stop: 06/23/22 09:59 Last Infusion: 06/18/22 06:51 Dose: Infused Heparin Sodium/Dextrose (Heparin Sodium/Dextrose) 25,000 units in 500 mls @ 20 mls/hr IV .Q24H OFE; Protocol Stop: 07/16/22 13:44 Last Titration: 06/18/22 06:58 Dose: 1,000 units/hr, 20 mls/hr Acetaminophen (Ofirmev) 1,000 mg in 100 mls @ 400 mls/hr IV Q8H PRN PRN Reason: Fever Stop: 06/19/22 19:58 Last Infusion: 06/16/22 20:27 Dose: Infused Insulin Aspart (Insulin Aspart Per Unit) 0 units SC ACHS [facility]E Stop: 07/17/22 08:44 Last Admin: 06/18/22 08:06 Dose: 18 units Ipratropium [place] (Ipratropium [place] Neb Soln 0.02% 2.5 Ml Vial) 0.5 mg INH QIDR [facility] Stop: 07/16/22 06:59 Last Admin: 06/18/22 07:52 Dose: 0.5 mg Levalbuterol HCl (Levalbuterol 1.25mg/0.5ml Neb) 1.25 mg INH QIDR [facility] Stop: 07/16/22 06:59 Last Admin: 06/18/22 07:51 Dose: 1.25 mg Levothyroxine Sodium (Levothyroxine Sodium 125 Mcg Tablet) 250 mcg PO DAILYBB [facility] Stop: 07/16/22 06:29 Last Admin: 06/18/22 05:49 Dose: 250 mcg Loratadine (Loratadine 10 Mg Tab) 20 mg PO DAILY PRN PRN Reason: .allergies Stop: 07/15/22 16:14 Magnesium Hydroxide (Magnesium Hydroxide Susp 30 Ml Udc) 30 ml PO Q12H PRN PRN Reason: Constipation Stop: 07/15/22 15:34 Magnesium Oxide (Magnesium Oxide 400 Mg Tab) 400 mg PO DAILY [facility] Stop: 07/16/22 08:59 Last Admin: 06/18/22 08:35 Dose: 400 mg Metoprolol Tartrate (Metoprolol Tartrate 25 Mg Tab) 25 mg PO BID [facility] Stop: 07/17/22 09:59 Last Admin: 06/18/22 08:11 Dose: 25 mg Miscellaneous (Carbohydrates For Hypoglycemia ) 15 - 30 gm PO UD PRN PRN Reason: Hypoglycemia Protocol Stop: 07/15/22 15:56 Miscellaneous (Remove Lidoderm Patch) 1 each N/A DAILY@2100 [facility] Stop: 07/15/22 20:59 Last Admin: 06/17/22 22:10 Dose: 1 each Miscellaneous Information (Pharmacy Glycemic Mgmt Consult) 1 each N/A UD PRN PRN Reason: Consult Stop: 07/15/22 15:56 Multivitamins (Multivitamin Tab) 1 tab PO DAILY [facility] Stop: 07/16/22 08:59 Last Admin: 06/18/22 08:10 Dose: 1 tab Nystatin (Nystatin Powder 15gm Btl) 1 appln EXT BID [facility] Stop: 07/15/22 20:59 Last Admin: 06/18/22 08:33 Dose: 1 appln Ondansetron HCl (Ondansetron Inj 2 Mg/Ml 2 Ml Vial) 4 mg IV Q6H PRN PRN Reason: Nausea Stop: 07/15/22 15:34 Oseltamivir Phosphate (Oseltamivir Phosphate Susp 30 Mg/5 Ml Udp) 30 mg PO BID [facility]; Protocol Stop: 06/20/22 09:01 Last Admin: 06/18/22 08:31 Dose: 30 mg Pantoprazole Sodium (Pantoprazole 40 Mg Tab) 40 mg PO DAILY [facility] Stop: 07/16/22 08:59 Last Admin: 06/18/22 08:12 Dose: 40 mg Polyethylene Glycol (Polyethylene (Miralax) 17 Gm Pack) 17 gm PO DAILY PRN PRN Reason: Constipation Stop: 07/15/22 15:34 Potassium Chloride (Potassium Chloride Crtab 20 Meq Tabcr) 20 meq PO DAILY [facility] Stop: 07/16/22 08:59 Last Admin: 06/18/22 08:31 Dose: 20 meq Sennosides (Senna 8.6 Mg Tab) 8.6 mg PO BID [facility] Stop: 07/15/22 20:59 Last Admin: 06/18/22 08:10 Dose: 8.6 mg Sodium Chloride (Sodium Chlor 7% 4 Ml Neb) 4 ml NEB BIDR [facility] Stop: 07/16/22 18:59 Last Admin: 06/18/22 07:51 Dose: 4 ml
--- NOTE | 2022-06-18 10:26 | Cardiology Progress Note ---
Date of Service June 18, 2022 Assessment & Plan (1) Respiratory failure with hypoxia: (2) Influenza A: (3) Chronic diastolic CHF (congestive heart failure): (4) SALAS (obstructive sleep apnea): (5) Morbid obesity: (6) Atrial fibrillation: (7) Pacemaker: Plan Patient is a complex 72-year-old male referral urgently with signs and symptoms of hypoxic respiratory failure. Patient admitted on 06/15/2022 with lethargy and hypoxia with recent history of influenza A. Evidence of right heart failure present currently with mild left heart failure intermittently on x-ray. Underlying issues include persistent atrial fibrillation with tachybradycardia syndrome status post pacemaker, morbid obesity. Patient currently demonstrating declining respiratory status despite treatments. Pulmonology/ICU punch out crew member consulted 06/18/2022 Clinically improved again today Issues addressed as follows 1. Atrial fibrillation, chronic with tachybradycardia syndrome, indwelling pacemaker: Heart rates are elevated he is required digoxin plus high-dose metoprolol succinate for rate control prehospitalization. We will discontinue metoprolol tartrate, begin metoprolol succinate at 25 mg 3 times daily. Currently anticoagulated with IV heparin. Previously on apixaban with plans to resume as renal function and clinical status stabilizes likely in the next 24 hours Admission and Anticipated Discharge Date Admission Date: June 15, 2022 Subjective Patient seen, chart, medications reviewed. Loose rattling cough but improving less oxygen demand Renal function improving Telemetry: Persistent atrial fibrillation with elevated ventricular response rate predominantly, minimal ventricular paced Review of Systems Review of Systems: All systems reviewed & are unremarkable except as noted in Subjective Results & Data ([facility]) Vital Signs (Past 12 Hours) Vital Signs Temp Pulse Pulse Resp BP BP Pulse Ox 06/18/22 10:01 06/18/22 07:30 36.6 C 115 H 23 97/76 L 97 06/18/22 07:52 79 18 97 06/18/22 06:00 125 H 33 H 94 06/18/22 05:00 120 H 27 H 99 06/18/22 04:01 113 H 21 100 06/18/22 04:01 97/75 L 06/18/22 04:00 37.4 C 109 H 27 H 100 06/18/22 03:00 113 H 24 99 06/18/22 02:01 110 H 26 H 99 06/18/22 02:01 102/70 06/18/22 02:00 111 H 25 H 99 06/18/22 03:20 112 H 26 H 100 06/18/22 01:02 114 H 29 H 97 06/18/22 01:02 112/91 06/18/22 01:00 127 H 32 H 98 06/18/22 00:01 119 H 31 H 89 L 06/18/22 00:01 37.1 C 112/86 06/18/22 00:00 108 H 29 H 84 L 06/17/22 23:01 138/84 06/17/22 23:01 112 H 18 97 06/17/22 23:00 113 H 30 H 97 06/17/22 23:15 104 H 24 94 O2 Del Method O2 Flow Rate FiO2 06/18/22 10:01 Nasal Cannula 2 06/18/22 07:30 Nasal Cannula 2.5 06/18/22 07:52 Nasal Cannula 4 06/18/22 06:00 06/18/22 05:00 06/18/22 04:01 06/18/22 04:01 06/18/22 04:00 06/18/22 03:00 06/18/22 02:01 06/18/22 02:01 06/18/22 02:00 06/18/22 03:20 35 06/18/22 01:02 06/18/22 01:02 06/18/22 01:00 06/18/22 00:01 06/18/22 00:01 06/18/22 00:00 06/17/22 23:01 06/17/22 23:01 06/17/22 23:00 06/17/22 23:15 2.5 Laboratory Results Laboratory Results - last 24 hr 06/17/22 06/17/22 06/17/22 11:26 16:06 16:23 WBC RBC Hgb Hct MCV MCH MCHC RDW Std Deviation RDW Coeff of Baldo Plt Count MPV Immature Gran % (Auto) Neut % (Auto) Lymph % (Auto) Posey % (Auto) Eos % (Auto) Baso % (Auto) Neut # (Auto) Lymph # (Auto) Posey # (Auto) Eos # (Auto) Baso # (Auto) Immature Gran # (Auto) APTT 79.1 H* PTT Ratio 2.9 Sodium Potassium Chloride Carbon Dioxide Anion Gap BUN Creatinine Est Cr Clr Drug Dosing Est GFR ( Amer) Est GFR (Non-Af Amer) BUN/Creatinine Ratio Glucose POC Glucose 205 H 228 H Calcium Phosphorus Magnesium 06/17/22 06/17/22 06/18/22 22:00 23:11 00:50 WBC RBC Hgb Hct MCV MCH MCHC RDW Std Deviation RDW Coeff of Baldo Plt Count MPV Immature Gran % (Auto) Neut % (Auto) Lymph % (Auto) Posey % (Auto) Eos % (Auto) Baso % (Auto) Neut # (Auto) Lymph # (Auto) Posey # (Auto) Eos # (Auto) Baso # (Auto) Immature Gran # (Auto) APTT 78.9 H* PTT Ratio 2.9 Sodium Potassium Chloride Carbon Dioxide Anion Gap BUN Creatinine Est Cr Clr Drug Dosing Est GFR ( Amer) Est GFR (Non-Af Amer) BUN/Creatinine Ratio Glucose POC Glucose 239 H 229 H Calcium Phosphorus Magnesium 06/18/22 06/18/22 06/18/22 04:35 06:33 06:33 WBC 9.29 RBC 4.66 Hgb 12.9 L Hct 41.0 MCV 88.0 MCH 27.7 MCHC 31.5 L RDW Std Deviation 45.9 RDW Coeff of Baldo 14.4 Plt Count 150 MPV 11.0 Immature Gran % (Auto) 0.3 Neut % (Auto) 77.3 Lymph % (Auto) 11.1 Posey % (Auto) 10.4 Eos % (Auto) 0.6 Baso % (Auto) 0.3 Neut # (Auto) 7.17 H Lymph # (Auto) 1.03 L Posey # (Auto) 0.97 H Eos # (Auto) 0.06 Baso # (Auto) 0.03 Immature Gran # (Auto) 0.03 H APTT PTT Ratio Sodium 135 L Potassium 3.9 Chloride 101 Carbon Dioxide 27 Anion Gap 7 BUN 47 H Creatinine 1.41 H D Est Cr Clr Drug Dosing 68.7 Est GFR ( Amer) 58.1 Est GFR (Non-Af Amer) 50.1 BUN/Creatinine Ratio 33.3 H Glucose 186 H POC Glucose 215 H Calcium 8.9 Phosphorus 3.3 D Magnesium 2.3 06/18/22 06/18/22 06:33 07:20 WBC RBC Hgb Hct MCV MCH MCHC RDW Std Deviation RDW Coeff of Baldo Plt Count MPV Immature Gran % (Auto) Neut % (Auto) Lymph % (Auto) Posey % (Auto) Eos % (Auto) Baso % (Auto) Neut # (Auto) Lymph # (Auto) Posey # (Auto) Eos # (Auto) Baso # (Auto) Immature Gran # (Auto) APTT 58.3 H* PTT Ratio 2.1 Sodium Potassium Chloride Carbon Dioxide Anion Gap BUN Creatinine Est Cr Clr Drug Dosing Est GFR ( Amer) Est GFR (Non-Af Amer) BUN/Creatinine Ratio Glucose POC Glucose 191 H Calcium Phosphorus Magnesium (1) Atrial fibrillation Atrial fibrillation type: unspecified Qualified Code(s): I48.91 - Unspecified atrial fibrillation
--- NOTE | 2022-06-18 10:48 | Pharmacy Report ---
Pharmacy Glycemic Short Note 2 - Date of Service June 18, 2022 - Glycemic Short BSG Results (Last 24 hours): 06/17/22 06/17/22 06/17/22 11:26 16:06 22:00 Glucose POC Glucose 205 H 228 H 239 H 06/18/22 06/18/22 06/18/22 00:50 04:35 06:33 Glucose 186 H POC Glucose 229 H 215 H 06/18/22 07:20 Glucose POC Glucose 191 H OUTPATIENT ANTIDIABETIC REGIMEN: * Lantus 100 units SQ QAM & 55 units HS * Novolin R 12 unts SQ ACHS ASSESSMENT: 06/18 * Stressors mostly stable - heparin drip continues. Diet advanced from clear liq to T2DM. * BSG's have been persistenly elevated since transition off drip yesterday, mostly in low 200's. AM fasting BSG did trend down, but this was after two doses of correctional insulin overnight * Will increase Lantus. Regimen similar to previous admission(s) * Will tighten Novolog parameters. Regimen similar to last day of previous admission. 06/17: * The insulin infusion was held ~ 0630 this morning due to significant decrease in BSG. Discussed with provider and proceeded with a basal/bolus regimen and elected to continue to hold the drip at this time. As patient was ordered a clear liquid diet only this morning, a more conservative AM dose was ordered. Will add a lantus scale for this evening as well as overnight BSG checks and coverage as appropriate. * In the past, patient has had varying requirements and BSGs have fluctuated g reatly. * Steroids were not continued but patient does remain on a heparin infusion ~26 units/hr 06/16 * Received 40 units basal insulin yesterday evening on admission. Unsure of morning basal dose given prior to admission. Fasting BSG was 238 mg/dl this morning. Could be elevated due to one dose of Solumedrol. Patient known to glycemic service on previous admissions to receive 100 - 120 units of basal insulin. NPO today therefore received a one time basal dose of 60 units this morning. On CF of 10 and Carb ratio of 3 * Patient oxygen status worsening, transferred to the ICU. Plan to start Insulin drip per ICU protocol this afternoon. PLAN FOR INPATIENT GLYCEMIC CONTROL: * Basal inusulin: * Lantus 85 units x1 this AM * Lantus scale at HS with 15, 25, or 35 units based on BSG-See MAR for details. * Bolus insulin * NovoLog per scale ACHS or Q6hrs while NPO and overnight checks * Goal Range: Low 110 mg/dL - High 140 mg/dL * Correction Factor: 10 mg/dL/unit * Nutritional / Prandial insulin per carb ratio of 1 unit per 3 grams CHO consumed
[2022-06-18] MEDS: oxyCODONE HCL IR 5 MG TAB (IMMEDIATE RELEASE) PO PRN ×2 (11:31→15:19)
[2022-06-18] MEDS: METOPROLOL SUCC 25MG EXT REL TAB PO SCH ×2 (13:37→20:56)
[2022-06-18] MEDS: DIGOXIN 0.125 MG TAB PO SCH (17:03)
[2022-06-18] MEDS: AMPICILLIN/SULBACTAM SOD 3,000 MG in 0.9 % SODIUM CHLORIDE 100 ML IV SCH (17:08)
[2022-06-18] MEDS: guaiFENesin 600 MG TABCR PO SCH (20:55)
[2022-06-18] MEDS: OSELTAMIVIR PHOSPHATE 75 MG CAP PO SCH (20:56)
[2022-06-19] MEDS: AMPICILLIN/SULBACTAM SOD 3,000 MG in 0.9 % SODIUM CHLORIDE 100 ML IV SCH ×4 (00:01→18:25)
[2022-06-19] MEDS: HEPARIN SODIUM/DEXTROSE 25,000 UNITS/500 ML BAG IV SCH ×2 (02:16→10:07)
[2022-06-19] MEDS: ARTIFICIAL TEARS OP SCH ×9 (05:17→20:35)
[2022-06-19] MEDS: LEVOTHYROXINE SODIUM 125 MCG TABLET PO SCH (05:18)
[2022-06-19] MEDS: DOXYCYCLINE HYCLATE 100 MG in DEXTROSE 5% 100 ML IV SCH ×2 (05:20→18:25)
[2022-06-19 06:08] LABS: Basophils # (auto) 0.04 K/uL (0-0.2); Basophils % (auto) 0.6 %; Eosinophils # (auto) 0.15 K/uL (0-0.50); Eosinophils % (auto) 2.2 %; Hematocrit (blood only) 38.3 % (40.1-51.0); Immature Granulocytes # (auto) 0.01 K/uL (0.00-0.02); Immature Granulocytes % (auto) 0.1 %; Lymphocytes % (auto) 15.9 %; Mean Corpuscular Hemoglobin 27.4 pg (25.0-34.0); Mean Corpuscular Hgb Conc 31.3 g/dL (32.0-36.0); Mean Corpuscular Volume 87.4 fL (80.0-100.0); Mean Platelet Volume 11.1 fL (9.4-12.4); Monocytes # (auto) 0.71 K/uL (0.24-0.82); Monocytes % (auto) 10.3 %; Neutrophils % (auto) 70.9 %; Platelet Count 143 K/uL (130-400); RDW Coefficient of Variation 14.6 % (11.5-14.5); RDW Standard Deviation 46.5 fL (36.4-46.3); Red Blood Count 4.38 M/uL (4.63-6.08); White Blood Count 6.91 K/ul (4.8-10.8)
[2022-06-19 06:26] LABS: Partial Thromboplastin Ratio 1.6; Partial Thromboplastin Time 43.6 Seconds (21.0-31.0)
[2022-06-19 06:35] LABS: BUN Creatinine Ratio 31.8 (10-20); Calcium 8.9 mg/dl (8.5-10.1); Creatinine Clr Calc Pharmacy 90.6 ml/min; Est GFR (African American) 81.1 ml/min; Phosphorus 2.6 mg/dl (2.5-4.9); Potassium 4.1 mmol/L (3.5-5.1)
[2022-06-19] MEDS: SODIUM CHLOR 7% 4 ML NEB NEB SCH ×2 (07:39→18:55)
[2022-06-19] MEDS: IPRATROPIUM BROMIDE NEB SOLN 0.02% 2.5 ML VIAL INH SCH ×4 (07:40→18:55)
[2022-06-19] MEDS: LEVALBUTEROL 1.25MG/0.5ML NEB INH SCH ×4 (07:40→18:55)
--- NOTE | 2022-06-19 08:13 | Hospitalist Progress Note ---
Date of Service June 19, 2022 Assessment & Plan (1) Respiratory failure with hypoxia: Plan 72 yo M w/ morbid obesity, HFpEF [TTE F 50 to 60%], SSS status post PPM/PE on anticoagulation, COPD/ILD, SALAS on CPAP, DM 2 on insulin, hypothyroidism, CKD [baseline 1.5-2], chronic anemia presented to ED 06/15 from [facility] d/t being lethargic and SPO2 85 to 88 % on RA. Patient was found to have flu A at ED, CXR with concern of mild pulmonary edema at presentation. He is being managed for the following: Acute hypoxic respiratory failure: Likely secondary to influenza and acute on chronic diastolic heart failure Acute on chronic diastolic heart failure Sepsis POA 2/2 viral infection & Influenza : Respiratory rate and temperature elevated at presentation. Possible superimposed bacterial infection Acute metabolic encephalopathy Patient was admitted due to concern of hypoxia and encephalopathy at [facility] on the day of arrival. Admitting WBC and Pro-Sreedhar WNL, admitting BNP 340/elevated from prior. Admitting temperature of 39.2C Admitting CXR with mild pulmonary edema. 12/28/2021 echo: EF 55 to 60%, study was technically difficult. 06/16 CT Chest: 1. Patchy bilateral perihilar airspace opacities with areas of dense consolidation within the bilateral lower lobes. This favors a pneumonia and could be due to aspiration. 2. There is also mild interlobular septal thickening. This raises the possibility of superimposed mild pulmonary edema. 3. Interval progression of the extensive mediastinal and bilateral hilar lymphadenopathy. The bilateral hilar lymph nodes result in mild to moderate narrowing of the central airways. This could be reactive to the suspected pneumonia. However, a neoplastic process remains the diagnosis of exclusion. Follow-up recommended to ensure stability/resolution. Consider follow-up pulmonary consultation. 4. Trace bilateral pleural effusions. 5. Additional findings as described above. Encephalopathy secondary to acute illness and hypoxia --> Resolved Acute on chronic diastolic failure, cardiology consulted - gentle diuresis - monitor renal function, Valentine, I's and O's. c/w BiPAP, close hemodynamic monitoring, continued with Zosyn started 06/16, -> switched to Unasyn 06/18, continue with doxycycline, follow 08/16 blood culture --[id number]. Continue Tamiflu. Pulmonary medicine f/u as OP. Acute kidney injury: resolved CTAP w/ no hydronephrosis, Valentine in place, monitor labs, avoid nephrotoxins - cautious diuresis due to need because of ongoing acute on chronic heart fa ilure H/O A. fib and pacemaker placement: Eliquis resumed, heparin infusion stopped Continues to be in Afib w/ RVR,cardiology following- cont. digoxin, metoprolol tartrate switched to succinate 50 mg TID Other chronic medical conditions: Resume meds as able. DVT prophylaxis: Eliquis Full code Dispo: PCU 06/16: Patient's daughter Bing was given a phone call and updated regarding worsening respiratory status and need to transfer the patient down to ICU, by my colleague Admission and Anticipated Discharge Date Admission Date: June 15, 2022 Subjective Patient seen in follow-up of acute hypoxic respiratory failure and encephalopathy secondary to influenza A, Afib w/ RVR,acute on chronic diastolic heart failure, acute kidney injury. Currently pt is sitting up in chair, on NC, alert and oriented, appears comfortable, reports no new issues overnight No chest pain , palpitations, increase shortness of breath, even though patient is tachycardic Review of Systems Review of Systems: All systems reviewed & are unremarkable except as noted in Subjective Physical Exam Physical Exam: GENERAL: Alert and oriented, on lacey al cannula oxygen, NAD. Obese class III. HEENT: No p allor, no icterus. Pupils equal, ro und and reactive t o light. Oral muc salas moist. NECK: thick and short HE ART: S1 and S2 he kayla. Tachycardia and irregular. No murmur, no gallop . RESPIRATORY: No rmal AP diameter. No accessory musc le use. No wheezi ng, bilateral mid and basal rhonchi/ crackles ABDOMEN: Soft, bowel sound s present, nontend er, no distention. NEURO: No facial droop. Speech is clear. Answers a ppropriately. Move s extremities. EXT REMITIES:1+ ble e radha, chronic skin changes ble Results & Data Results & Data ([facility]) Vital Signs (Past 12 Hours) Vital Signs Temp Pulse Pulse Resp BP Pulse Ox O2 Del Method 06/19/22 07:42 90 18 97 Nasal Cannula 06/19/22 03:11 36.6 C 110 H 18 125/83 94 Nasal Cannula 06/19/22 00:00 36.7 C 109 H 22 141/84 H 96 BiPAP 12/07/22 23:00 134 H 06/18/22 22:30 114 H 26 H 96 O2 Flow Rate FiO2 06/19/22 07:42 3 06/19/22 03:11 2 06/19/22 00:00 06/18/22 23:00 06/18/22 22:30 35 Laboratory Results 06/19/22 06/19/22 06/19/22 Range/Units 07:51 05:41 05:41 WBC 6.91 (4.8-10.8) K/ul RBC 4.38 L (4.63-6.08) M/uL Hgb 12.0 L (14.0-18.0) g/dl Hct 38.3 L (40.1-51.0) % MCV 87.4 (80.0-100.0) fL MCH 27.4 (25.0-34.0) pg MCHC 31.3 L (32.0-36.0) g/dL RDW Std Deviation 46.5 H (36.4-46.3) fL RDW Coeff of Baldo 14.6 H (11.5-14.5) % Plt Count 143 (130-400) K/uL MPV 11.1 (9.4-12.4) fL Immature Gran % (Auto) 0.1 % Neut % (Auto) 70.9 % Lymph % (Auto) 15.9 % Laporte % (Auto) 10.3 % Eos % (Auto) 2.2 % Baso % (Auto) 0.6 % Neut # (Auto) 4.90 (1.4-6.5) K/uL Lymph # (Auto) 1.10 L (1.2-3.4) K/uL [place] # (Auto) 0.71 (0.24-0.82) K/uL Eos # (Auto) 0.15 (0-0.50) K/uL Baso # (Auto) 0.04 (0-0.2) K/uL Immature Gran # (Auto) 0.01 (0.00-0.02) K/uL APTT (21.0-31.0) Seconds PTT Ratio Sodium 138 (136-145) mmol/L Potassium 4.1 (3.5-5.1) mmol/L Chloride 104 (98-107) mmol/L Carbon Dioxide 28 (21-32) mmol/L Anion Gap 6 (3-11) BUN 34 H (6-23) mg/dl Creatinine 1.07 D (0.6-1.4) mg/dl Est Cr Clr Drug Dosing 90.6 ml/min Est GFR ( Amer) 81.1 ml/min Est GFR (Non-Af Amer) 70.0 ml/min BUN/Creatinine Ratio 31.8 H (10-20) Glucose 106 H (70-99(Fasting)) mg/dl POC Glucose 113 H (70-99) mg/dl Calcium 8.9 (8.5-10.1) mg/dl Phosphorus 2.6 (2.5-4.9) mg/dl Magnesium 2.0 (1.7-2.4) mg/dl Digoxin (0.8-2.0) ng/ml 06/19/22 06/18/22 06/18/22 Range/Units 05:41 20:39 16:20 WBC (4.8-10.8) K/ul RBC (4.63-6.08) M/uL Hgb (14.0-18.0) g/dl Hct (40.1-51.0) % MCV (80.0-100.0) fL MCH (25.0-34.0) pg MCHC (32.0-36.0) g/dL RDW Std Deviation (36.4-46.3) fL RDW Coeff of Baldo (11.5-14.5) % Plt Count (130-400) K/uL MPV (9.4-12.4) fL Immature Gran % (Auto) % Neut % (Auto) % Lymph % (Auto) % [place] % (Auto) % Eos % (Auto) % Baso % (Auto) % Neut # (Auto) (1.4-6.5) K/uL Lymph # (Auto) (1.2-3.4) K/uL [place] # (Auto) (0.24-0.82) K/uL Eos # (Auto) (0-0.50) K/uL Baso # (Auto) (0-0.2) K/uL Immature Gran # (Auto) (0.00-0.02) K/uL APTT 43.6 H (21.0-31.0) Seconds PTT Ratio 1.6 Sodium (136-145) mmol/L Potassium (3.5-5.1) mmol/L Chloride (98-107) mmol/L Carbon Dioxide (21-32) mmol/L Anion Gap (3-11) BUN (6-23) mg/dl Creatinine (0.6-1.4) mg/dl Est Cr Clr Drug Dosing ml/min Est GFR ( Amer) ml/min Est GFR (Non-Af Amer) ml/min BUN/Creatinine Ratio (10-20) Glucose (70-99(Fasting)) mg/dl POC Glucose 259 H 247 H (70-99) mg/dl Calcium (8.5-10.1) mg/dl Phosphorus (2.5-4.9) mg/dl Magnesium (1.7-2.4) mg/dl Digoxin (0.8-2.0) ng/ml 06/18/22 06/18/22 Range/Units 14:35 11:05 WBC (4.8-10.8) K/ul RBC (4.63-6.08) M/uL Hgb (14.0-18.0) g/dl Hct (40.1-51.0) % MCV (80.0-100.0) fL MCH (25.0-34.0) pg MCHC (32.0-36.0) g/dL RDW Std Deviation (36.4-46.3) fL RDW Coeff of Baldo (11.5-14.5) % Plt Count (130-400) K/uL MPV (9.4-12.4) fL Immature Gran % (Auto) % Neut % (Auto) % Lymph % (Auto) % [place] % (Auto) % Eos % (Auto) % Baso % (Auto) % Neut # (Auto) (1.4-6.5) K/uL Lymph # (Auto) (1.2-3.4) K/uL [place] # (Auto) (0.24-0.82) K/uL Eos # (Auto) (0-0.50) K/uL Baso # (Auto) (0-0.2) K/uL Immature Gran # (Auto) (0.00-0.02) K/uL APTT (21.0-31.0) Seconds PTT Ratio Sodium (136-145) mmol/L Potassium (3.5-5.1) mmol/L Chloride (98-107) mmol/L Carbon Dioxide (21-32) mmol/L Anion Gap (3-11) BUN (6-23) mg/dl Creatinine (0.6-1.4) mg/dl Est Cr Clr Drug Dosing ml/min Est GFR ( Amer) ml/min Est GFR (Non-Af Amer) ml/min BUN/Creatinine Ratio (10-20) Glucose (70-99(Fasting)) mg/dl POC Glucose 256 H (70-99) mg/dl Calcium (8.5-10.1) mg/dl Phosphorus (2.5-4.9) mg/dl Magnesium (1.7-2.4) mg/dl Digoxin 0.4 L (0.8-2.0) ng/ml Medications Administered Current Inpatient Medications Acetaminophen (Acetaminophen 325 Mg Tab) 650 mg PO Q4H PRN PRN Reason: Mild Pain or Fever Stop: 07/15/22 15:34 Last Admin: 06/16/22 02:30 Dose: 650 mg Al Hydrox/Mg Hydrox/Simethicone (Aluminum/Magnesium Susp 30 Ml Udc) 15 ml PO Q4H PRN PRN Reason: Dyspepsia Stop: 07/15/22 15:34 Allopurinol (Allopurinol 300 Mg Tab) 300 mg PO DAILY [facility] Stop: 07/16/22 08:59 Last Admin: 06/16/22 10:21 Dose: 300 mg Apixaban (Apixaban 5 Mg Tablet) 5 mg PO Q12 [facility] Stop: 07/15/22 20:59 Last Admin: 06/15/22 20:22 Dose: 5 mg Artificial Tears (Artificial Tears) 1 drops OP Q2HWA [facility] Stop: 07/15/22 16:48 Last Admin: 06/19/22 05:17 Dose: 1 drops Aspirin (Aspirin 81 Mg Ectab) 81 mg PO DAILY [facility] Stop: 07/16/22 08:59 Last Admin: 06/16/22 10:21 Dose: 81 mg Atorvastatin Calcium (Atorvastatin 10 Mg Tab) 10 mg PO DAILY [facility] Stop: 07/16/22 08:59 Last Admin: 06/18/22 08:10 Dose: 10 mg Bupropion HCl (Bupropion Xl 150 Mg Tabcr) 150 mg PO DAILY [facility] Stop: 07/16/22 08:59 Dextrose (Dextrose 50% 50 Ml Syringe) 25 - 50 ml IV UD PRN; Protocol PRN Reason: Hypoglycemia Protocol Stop: 07/15/22 15:56 Digoxin (Digoxin 0.125 Mg Tab) 0.125 mg PO DAILY@1600 [facility] Stop: 07/16/22 15:59 Last Admin: 06/18/22 17:03 Dose: 0.125 mg Duloxetine HCl (Duloxetine Hcl 60 Mg Cap) 60 mg PO DAILY [facility] Stop: 07/16/22 08:59 Last Admin: 06/16/22 10:21 Dose: 60 mg Erythromycin (Erythromycin Op Oint 5 Mg/Gm 3.5 Gm Tube) 1 appln OPB DAILY [facility] Stop: 06/26/22 08:59 Last Admin: 06/18/22 08:34 Dose: 1 appln Gabapentin (Gabapentin 300 Mg Cap) 300 mg PO QID [facility] Stop: 07/15/22 16:59 Last Admin: 06/15/22 20:19 Dose: 300 mg Glucagon (Glucagon For Inj 1 Mg Vial) 1 mg SQ UD PRN; Protocol PRN Reason: Hypoglycemia Protocol Stop: 07/15/22 15:56 Glucose (Glucose 40% Gel 15 Gm Tube) 15 - 30 gm PO UD PRN; Protocol PRN Reason: Hypoglycemia Protocol Stop: 07/15/22 15:56 Glucose (Glucose 10 Tab/Tube) 4 - 8 tab PO UD PRN; Protocol PRN Reason: Hypoglycemia Treatment Stop: 07/15/22 15:56 Guaifenesin (Guaifenesin 600 Mg Tabcr) 600 mg PO Q12 [facility] Stop: 07/18/22 20:59 Last Admin: 06/18/22 20:55 Dose: 600 mg Doxycycline Hyclate 100 mg/ (Dextrose) 110 mls @ 50 mls/hr IV Q12H [facility] Stop: 06/20/22 08:11 Last Admin: 06/19/22 05:20 Dose: 50 mls/hr Heparin Sodium/Dextrose (Heparin Sodium/Dextrose) 25,000 units in 500 mls @ 22 mls/hr IV .[id number] [facility]; Protocol Stop: 07/16/22 13:44 Last Titration: 06/19/22 07:07 Dose: 1,100 units/hr, 22 mls/hr Acetaminophen (Ofirmev) 1,000 mg in 100 mls @ 400 mls/hr IV Q8H PRN PRN Reason: Fever Stop: 06/19/22 19:58 Last Infusion: 06/16/22 20:27 Dose: Infused Ampicillin Sodium/Sulbactam Sodium 3,000 mg/ Sodium Chloride 108 mls @ 216 mls/hr IV Q6H [facility]; Protocol Stop: 06/23/22 09:59 Last Infusion: 06/19/22 05:49 Dose: Infused Insulin Aspart (Insulin Aspart Per Unit) 0 units SC ACHS [facility] Stop: 07/17/22 08:44 Last Admin: 06/18/22 20:53 Dose: 12 units Insulin Glargine (Lantus Per Unit Charge) 75 units SQ QAM [facility] Stop: 07/19/22 08:59 Ipratropium [place] (Ipratropium [place] Neb Soln 0.02% 2.5 Ml Vial) 0.5 mg INH QIDR [facility] Stop: 07/16/22 06:59 Last Admin: 06/19/22 07:40 Dose: 0.5 mg Levalbuterol HCl (Levalbuterol 1.25mg/0.5ml Neb) 1.25 mg INH QIDR [facility] Stop: 07/16/22 06:59 Last Admin: 06/19/22 07:40 Dose: 1.25 mg Levothyroxine Sodium (Levothyroxine Sodium 125 Mcg Tablet) 250 mcg PO DAILYBB [facility] Stop: 07/16/22 06:29 Last Admin: 06/19/22 05:18 Dose: 250 mcg Loratadine (Loratadine 10 Mg Tab) 20 mg PO DAILY PRN PRN Reason: .allergies Stop: 07/15/22 16:14 Magnesium Hydroxide (Magnesium Hydroxide Susp 30 Ml Udc) 30 ml PO Q12H PRN PRN Reason: Constipation Stop: 07/15/22 15:34 Magnesium Oxide (Magnesium Oxide 400 Mg Tab) 400 mg PO DAILY [facility] Stop: 07/16/22 08:59 Last Admin: 06/18/22 08:35 Dose: 400 mg Metoprolol Succinate (Metoprolol Succ 25mg Ext Rel Tab) 25 mg PO TID [facility] Stop: 07/18/22 13:59 Last Admin: 06/18/22 20:56 Dose: 25 mg Miscellaneous (Carbohydrates For Hypoglycemia ) 15 - 30 gm PO UD PRN PRN Reason: Hypoglycemia Protocol Stop: 07/15/22 15:56 Miscellaneous (Remove Lidoderm Patch) 1 each N/A DAILY@2100 [facility] Stop: 07/15/22 20:59 Last Admin: 06/18/22 20:58 Dose: 1 each Miscellaneous Information (Pharmacy Glycemic Mgmt Consult) 1 each N/A UD PRN PRN Reason: Consult Stop: 07/15/22 15:56 Multivitamins (Multivitamin Tab) 1 tab PO DAILY [facility] Stop: 07/16/22 08:59 Last Admin: 06/18/22 08:10 Dose: 1 tab Nystatin (Nystatin Powder 15gm Btl) 1 appln EXT BID [facility] Stop: 07/15/22 20:59 Last Admin: 06/18/22 20:56 Dose: 1 appln Ondansetron HCl (Ondansetron Inj 2 Mg/Ml 2 Ml Vial) 4 mg IV Q6H PRN PRN Reason: Nausea Stop: 07/15/22 15:34 Oseltamivir Phosphate (Oseltamivir Phosphate 75 Mg Cap) 75 mg PO BID [facility] Stop: 06/20/22 09:01 Last Admin: 06/18/22 20:56 Dose: 75 mg Oxycodone HCl (Oxycodone Hcl Ir 5 Mg Tab (Immediate Release)) 5 mg PO Q4H PRN PRN Reason: Moderate to Severe Pain Stop: 07/02/22 11:17 Last Admin: 06/18/22 15:19 Dose: 5 mg Pantoprazole Sodium (Pantoprazole 40 Mg Tab) 40 mg PO DAILY [facility] Stop: 07/16/22 08:59 Last Admin: 06/18/22 08:12 Dose: 40 mg Polyethylene Glycol (Polyethylene (Miralax) 17 Gm Pack) 17 gm PO DAILY PRN PRN Reason: Constipation Stop: 07/15/22 15:34 Potassium Chloride (Potassium Chloride Crtab 20 Meq Tabcr) 20 meq PO DAILY [facility] Stop: 07/16/22 08:59 Last Admin: 06/18/22 08:31 Dose: 20 meq Sennosides (Senna 8.6 Mg Tab) 8.6 mg PO BID [facility] Stop: 07/15/22 20:59 Last Admin: 06/18/22 20:58 Dose: 8.6 mg Sodium Chloride (Sodium Chlor 7% 4 Ml Neb) 4 ml NEB BIDR [facility] Stop: 07/16/22 18:59 Last Admin: 06/19/22 07:39 Dose: 4 ml
[2022-06-19] MEDS: INSULIN ASPART PER UNIT SC SCH ×4 (08:22→20:35)
[2022-06-19] MEDS: guaiFENesin 600 MG TABCR PO SCH ×2 (08:28→20:04)
[2022-06-19] MEDS: MULTIVITAMIN TAB PO SCH (08:28)
[2022-06-19] MEDS: OSELTAMIVIR PHOSPHATE 75 MG CAP PO SCH ×2 (08:28→20:05)
[2022-06-19] MEDS: METOPROLOL SUCC 25MG EXT REL TAB PO SCH (08:28)
[2022-06-19] MEDS: ATORVASTATIN 10 MG TAB PO SCH (08:28)
[2022-06-19] MEDS: NYSTATIN POWDER 15GM BTL EXT SCH ×2 (08:29→20:05)
[2022-06-19] MEDS: SENNA 8.6 MG TAB PO SCH ×2 (08:29→20:06)
[2022-06-19] MEDS: PANTOprazole 40 MG TAB PO SCH (08:29)
[2022-06-19] MEDS: ERYTHROMYCIN OP OINT 5 MG/GM 3.5 GM TUBE OPB SCH (08:30)
[2022-06-19] MEDS: POTASSIUM CHLORIDE CRTAB 20 MEQ TABCR PO SCH (08:34)
[2022-06-19] MEDS ORDERED: LANTUS PER UNIT CHARGE SQ SCH ×2 (09:00→21:00)
[2022-06-19] MEDS ORDERED: FUROSEMIDE INJ 20 MG/2 ML VIAL IV ONE (09:38)
--- NOTE | 2022-06-19 09:41 | Cardiology Progress Note ---
Date of Service June 19, 2022 Assessment & Plan (1) Respiratory failure with hypoxia: (2) Influenza A: (3) Chronic diastolic CHF (congestive heart failure): (4) SALAS (obstructive sleep apnea): (5) Morbid obesity: (6) Atrial fibrillation: (7) Pacemaker: Plan Patient is a complex 72-year-old male referral urgently with signs and symptoms of hypoxic respiratory failure. Patient admitted on 06/15/2022 with lethargy and hypoxia with recent history of influenza A. Evidence of right heart failure present currently with mild left heart failure intermittently on x-ray. Underlying issues include persistent atrial fibrillation with tachybradycardia syndrome status post pacemaker, morbid obesity. 06/19/2022 Patient slowly improving but heart rate still elevated chest x-ray and exam consistent with mild to moderate volume overload, right heart failure superimposed on chronic pulmonary issue Plan: Furosemide 20 mg IV now Increase metoprolol succinate to 50 mg p.o. 3 times daily Resume apixaban, stop IV heparin Admission and Anticipated Discharge Date Admission Date: June 15, 2022 Subjective Patient seen and examined, chart, medications, telemetry reviewed. Patient sitting at side of bed feeling improved but still with wheezy cough. Weight trending upward with mild increase in lower extremity edema. Atrial fibrillation rate still elevated Renal function not returning to baseline Chest x-ray with vascular congestion Review of Systems Review of Systems: All systems reviewed & are unremarkable except as noted in Subjective Physical Exam Constitutional: + morbidly obese and + lethargic; no acute distress Eyes: PERRL, conjunctivae normal, anicteric sclerae ENMT: external ear and nose normal, oropharynx normal Neck: trachea midline, no thyromegaly + thick neck Respiratory: Auscultation: + diminished lung sounds and + wheezes Cardiovascular: Rate/Rhythm: + tachycardic and + irregularly irregular Heart Sounds: no murmur Extremities: + edema (1-2+ diffuse) Chest (Breasts): Chest: + pacemaker Gastrointestinal (Abdomen): Percussion/Palpation: abdomen soft Neurologic: PERRL, EOMI, accommodation nl, no face palsy, no dysarthria Results & Data ([facility]) Vital Signs (Past 12 Hours) Vital Signs Temp Pulse Pulse Resp BP Pulse Ox O2 Del Method 06/19/22 07:42 90 18 97 Nasal Cannula 06/19/22 03:11 36.6 C 110 H 18 125/83 94 Nasal Cannula 06/19/22 00:00 36.7 C 109 H 22 141/84 H 96 BiPAP 06/18/22 23:00 134 H 06/18/22 22:30 114 H 26 H 96 O2 Flow Rate FiO2 06/19/22 07:42 3 06/19/22 03:11 2 06/19/22 00:00 06/18/22 23:00 06/18/22 22:30 35 Laboratory Results Laboratory Results - last 24 hr 06/18/22 06/18/22 06/18/22 11:05 14:35 16:20 WBC RBC Hgb Hct MCV MCH MCHC RDW Std Deviation RDW Coeff of Baldo Plt Count MPV Immature Gran % (Auto) Neut % (Auto) Lymph % (Auto) [place] % (Auto) Eos % (Auto) Baso % (Auto) Neut # (Auto) Lymph # (Auto) [place] # (Auto) Eos # (Auto) Baso # (Auto) Immature Gran # (Auto) APTT PTT Ratio Sodium Potassium Chloride Carbon Dioxide Anion Gap BUN Creatinine Est Cr Clr Drug Dosing Est GFR ( Amer) Est GFR (Non-Af Amer) BUN/Creatinine Ratio Glucose POC Glucose 256 H 247 H Calcium Phosphorus Magnesium Digoxin 0.4 L 06/18/22 06/19/22 06/19/22 20:39 05:41 05:41 WBC 6.91 RBC 4.38 L Hgb 12.0 L Hct 38.3 L MCV 87.4 MCH 27.4 MCHC 31.3 L RDW Std Deviation 46.5 H RDW Coeff of Baldo 14.6 H Plt Count 143 MPV 11.1 Immature Gran % (Auto) 0.1 Neut % (Auto) 70.9 Lymph % (Auto) 15.9 [place] % (Auto) 10.3 Eos % (Auto) 2.2 Baso % (Auto) 0.6 Neut # (Auto) 4.90 Lymph # (Auto) 1.10 L [place] # (Auto) 0.71 Eos # (Auto) 0.15 Baso # (Auto) 0.04 Immature Gran # (Auto) 0.01 APTT 43.6 H PTT Ratio 1.6 Sodium Potassium Chloride Carbon Dioxide Anion Gap BUN Creatinine Est Cr Clr Drug Dosing Est GFR ( Amer) Est GFR (Non-Af Amer) BUN/Creatinine Ratio Glucose POC Glucose 259 H Calcium Phosphorus Magnesium Digoxin 06/19/22 06/19/22 05:41 07:51 WBC RBC Hgb Hct MCV MCH MCHC RDW Std Deviation RDW Coeff of Baldo Plt Count MPV Immature Gran % (Auto) Neut % (Auto) Lymph % (Auto) [place] % (Auto) Eos % (Auto) Baso % (Auto) Neut # (Auto) Lymph # (Auto) [place] # (Auto) Eos # (Auto) Baso # (Auto) Immature Gran # (Auto) APTT PTT Ratio Sodium 138 Potassium 4.1 Chloride 104 Carbon Dioxide 28 Anion Gap 6 BUN 34 H Creatinine 1.07 D Est Cr Clr Drug Dosing 90.6 Est GFR ( Amer) 81.1 Est GFR (Non-Af Amer) 70.0 BUN/Creatinine Ratio 31.8 H Glucose 106 H POC Glucose 113 H Calcium 8.9 Phosphorus 2.6 Magnesium 2.0 Digoxin (1) Atrial fibrillation Atrial fibrillation type: unspecified Qualified Code(s): I48.91 - Unspecified atrial fibrillation
--- NOTE | 2022-06-19 09:55 | XRay Report ---
SINGLE VIEW CHEST CLINICAL HISTORY: Follow-up CHF. FINDINGS: An AP, portable, upright chest radiograph is compared to study dated 06/17/2022. A 2-lead ca rdiac pacemaker is unchanged in position. The heart is enlarged noting atherosclerotic calcification of the thoracic aorta. There is pulmonary vascular congestion and mild pulmonary edema. Airspace opac ities are again seen in both lung bases. Small pleural effusions are suspected. No pneumothorax is se en. The skeletal structures are osteopenic. The bony thorax is grossly intact. IMPRESSION: 1. Cardiomegaly with evidence of congestive failure and mild pulmonary edema. This is similar to prev ious. 2. Suspect small pleural effusions. ACT 112: Negative or not required by law. Electronically signed by: Anupam Gonzalez M.D. 06/19/2022 9:53 AM
[2022-06-19] MEDS: MAGNESIUM OXIDE 400 MG TAB PO SCH (09:59)
[2022-06-19] MEDS: APIXABAN 5 MG TABLET PO SCH ×2 (11:08→20:03)
[2022-06-19] MEDS: METOPROLOL SUCC 50MG EXT REL TAB PO SCH ×2 (14:15→20:04)
[2022-06-19] MEDS: POLYETHYLENE (MIRALAX) 17 GM PACK PO SCH (14:15)
[2022-06-19] MEDS: DIGOXIN 0.125 MG TAB PO SCH (16:57)
[2022-06-19] MEDS: ACETAMINOPHEN 325 MG TAB PO PRN (16:59)
[2022-06-20] MEDS: AMPICILLIN/SULBACTAM SOD 3,000 MG in 0.9 % SODIUM CHLORIDE 100 ML IV SCH ×5 (00:02→23:46)
[2022-06-20] MEDS: ARTIFICIAL TEARS OP SCH ×9 (04:59→20:12)
[2022-06-20] MEDS: DOXYCYCLINE HYCLATE 100 MG in DEXTROSE 5% 100 ML IV SCH (05:00)
[2022-06-20] MEDS: LEVOTHYROXINE SODIUM 125 MCG TABLET PO SCH (05:00)
[2022-06-20 06:32] LABS: Hematocrit (blood only) 38.3 % (40.1-51.0); Hemoglobin 12.2 g/dl (14.0-18.0); Mean Corpuscular Hemoglobin 27.2 pg (25.0-34.0); Mean Corpuscular Hgb Conc 31.9 g/dL (32.0-36.0); Mean Corpuscular Volume 85.5 fL (80.0-100.0); Mean Platelet Volume 11.2 fL (9.4-12.4); Platelet Count 154 K/uL (130-400); RDW Coefficient of Variation 14.3 % (11.5-14.5); RDW Standard Deviation 43.9 fL (36.4-46.3); Red Blood Count 4.48 M/uL (4.63-6.08); White Blood Count 5.46 K/ul (4.8-10.8)
[2022-06-20 07:00] LABS: BUN Creatinine Ratio 27.8 (10-20); Creatinine Clr Calc Pharmacy 99.7 ml/min; Est GFR (African American) 91.3 ml/min; Est GFR (Non-African American) 78.8 ml/min; Phosphorus 2.1 mg/dl (2.5-4.9)
[2022-06-20] MEDS: SODIUM CHLOR 7% 4 ML NEB NEB SCH ×2 (07:13→19:23)
[2022-06-20] MEDS: LEVALBUTEROL 1.25MG/0.5ML NEB INH SCH ×4 (07:13→19:23)
[2022-06-20] MEDS: IPRATROPIUM BROMIDE NEB SOLN 0.02% 2.5 ML VIAL INH SCH ×4 (07:13→19:23)
--- NOTE | 2022-06-20 08:09 | Hospitalist Progress Note ---
Date of Service June 20, 2022 Assessment & Plan (1) Respiratory failure with hypoxia: Plan 72 yo M w/ morbid obesity, HFpEF [TTE F 50 to 60%], SSS status post PPM/PE on anticoagulation, COPD/ILD, SALAS on CPAP, DM 2 on insulin, hypothyroidism, CKD [baseline 1.5-2], chronic anemia presented to ED 06/[address] [facility] NF d/t being lethargic and SPO2 85 to 88 % on RA. Patient was found to have flu A at ED, CXR with concern of mild pulmonary edema at presentation. He is being managed for the following: Acute hypoxic respiratory failure: Likely secondary to influenza and acute on chronic diastolic heart failure Acute on chronic diastolic heart failure Sepsis POA 2/2 viral infection & Influenza : Respiratory rate and temperature elevated at presentation. Possible superimposed bacterial infection Acute metabolic encephalopathy Patient was admitted due to concern of hypoxia and encephalopathy at [facility] on the day of arrival. Admitting WBC and Pro-Sreedhar WNL, admitting BNP 340/elevated from prior. Admitting temperature of 39.2C Admitting CXR with mild pulmonary edema. 12/28/2021 echo: EF 55 to 60%, study was technically difficult. 06/16 CT Chest: 1. Patchy bilateral perihilar airspace opacities with areas of dense consolidation within the bilateral lower lobes. This favors a pneumonia and could be due to aspiration. 2. There is also mild interlobular septal thickening. This raises the possibility of superimposed mild pulmonary edema. 3. Interval progression of the extensive mediastinal and bilateral hilar lymphadenopathy. The bilateral hilar lymph nodes result in mild to moderate narrowing of the central airways. This could be reactive to the suspected pneumonia. However, a neoplastic process remains the diagnosis of exclusion. Follow-up recommended to ensure stability/resolution. Consider follow-up pulmonary consultation. 4. Trace bilateral pleural effusions. 5. Additional findings as described above. Encephalopathy secondary to acute illness and hypoxia --> Resolved Acute on chronic diastolic failure, cardiology consulted - gentle diuresis - monitor renal function, Valentine, I's and O's. c/w BiPAP, close hemodynamic monitoring, continued with Zosyn started 06/16, -> switched to Unasyn 06/18, stopped doxycycline, follow 08/16 blood culture --[id number]. Continue Tamiflu. Pulmonary medicine f/u as OP. Acute kidney injury: resolved CTAP w/ no hydronephrosis, Valentine in place, monitor labs, avoid nephrotoxins - cautious diuresis -> now switched to PO lasix H/O A. fib and pacemaker placement: Eliquis resumed, heparin infusion stopped Continues to be in Afib w/ RVR,cardiology following- cont. digoxin, metoprolol tartrate switched to succinate 100 mg BID Other chronic medical conditions: Resume meds as able. DVT prophylaxis: Eliquis Full code Dispo: PCU 06/16: Patient's daughter Bing was given a phone call and updated regarding worsening respiratory status and need to transfer the patient down to ICU, by my colleague Admission and Anticipated Discharge Date Admission Date: June 15, 2022 Subjective Patient seen in follow-up of acute hypoxic respiratory failure and encephalopathy secondary to influenza A, Afib w/ RVR,acute on chronic diastolic heart failure, acute kidney injury. Currently pt is laying in bed, in no acute distress, breathing comfortably on room air. Denies any acute events overnight No chest pain , palpitations, shortness of breath Review of Systems Review of Systems: All systems reviewed & are unremarkable except as noted in Subjective Physical Exam Physical Exam: GENERAL: Alert and oriented, in NAD. on RA. Obese cla ss III. HEENT:EOM I. Pupils equal, r ound and reactive to light. Oral mu cosa moist. NECK: thick and short H EART: S1 and S2 h eard. + Tachycard ia and irregular. No murmur, no gal lop. RESPIRATORY: Normal AP diamete r. No accessory m uscle use. No whe ezing, bilateral m id and basal rhonc hi/crackles ABDOME N: Soft, bowel so unds present, nont kinza, no distenti on. NEURO: No fac ial droop. Speech is clear. Answer s appropriately. M oves extremities. EXTREMITIES:1+ bl e edema, chronic s kin changes ble Results & Data Results & Data ([facility]) Vital Signs (Past 12 Hours) Vital Signs Temp Pulse Pulse Resp BP Pulse Ox O2 Del Method 06/20/22 07:54 36.4 C L 109 H 17 149/86 H 92 Room Air 06/20/22 07:30 120 H 06/20/22 07:15 108 H 18 93 Room Air 06/20/22 03:09 36.4 C L 111 H 20 120/61 91 Room Air 06/19/22 22:57 36.8 C 108 H 14 118/71 95 Room Air 06/19/22 21:50 Room Air Laboratory Results 06/20/22 06/20/22 06/20/22 Range/Units 07:14 05:40 05:40 WBC 5.46 (4.8-10.8) K/ul RBC 4.48 L (4.63-6.08) M/uL Hgb 12.2 L (14.0-18.0) g/dl Hct 38.3 L (40.1-51.0) % MCV 85.5 (80.0-100.0) fL MCH 27.2 (25.0-34.0) pg MCHC 31.9 L (32.0-36.0) g/dL RDW Std Deviation 43.9 (36.4-46.3) fL RDW Coeff of Baldo 14.3 (11.5-14.5) % Plt Count 154 (130-400) K/uL MPV 11.2 (9.4-12.4) fL Sodium 140 (136-145) mmol/L Potassium 4.0 (3.5-5.1) mmol/L Chloride 107 (98-107) mmol/L Carbon Dioxide 27 (21-32) mmol/L Anion Gap 6 (3-11) BUN 27 H (6-23) mg/dl Creatinine 0.97 (0.6-1.4) mg/dl Est Cr Clr Drug Dosing 99.7 ml/min Est GFR ( Amer) 91.3 ml/min Est GFR (Non-Af Amer) 78.8 ml/min BUN/Creatinine Ratio 27.8 H (10-20) Glucose 86 (70-99(Fasting)) mg/dl POC Glucose 90 (70-99) mg/dl Calcium 9.0 (8.5-10.1) mg/dl Phosphorus 2.1 L (2.5-4.9) mg/dl Magnesium 2.0 (1.7-2.4) mg/dl 06/19/22 06/19/22 06/19/22 Range/Units 20:23 16:20 11:45 WBC (4.8-10.8) K/ul RBC (4.63-6.08) M/uL Hgb (14.0-18.0) g/dl Hct (40.1-51.0) % MCV (80.0-100.0) fL MCH (25.0-34.0) pg MCHC (32.0-36.0) g/dL RDW Std Deviation (36.4-46.3) fL RDW Coeff of Baldo (11.5-14.5) % Plt Count (130-400) K/uL MPV (9.4-12.4) fL Sodium (136-145) mmol/L Potassium (3.5-5.1) mmol/L Chloride (98-107) mmol/L Carbon Dioxide (21-32) mmol/L Anion Gap (3-11) BUN (6-23) mg/dl Creatinine (0.6-1.4) mg/dl Est Cr Clr Drug Dosing ml/min Est GFR ( Amer) ml/min Est GFR (Non-Af Amer) ml/min BUN/Creatinine Ratio (10-20) Glucose (70-99(Fasting)) mg/dl POC Glucose 163 H 157 H 149 H (70-99) mg/dl Calcium (8.5-10.1) mg/dl Phosphorus (2.5-4.9) mg/dl Magnesium (1.7-2.4) mg/dl Medications Administered Current Inpatient Medications Acetaminophen (Acetaminophen 325 Mg Tab) 650 mg PO Q4H PRN PRN Reason: Mild Pain or Fever Stop: 07/15/22 15:34 Last Admin: 06/19/22 16:59 Dose: 650 mg Al Hydrox/Mg Hydrox/Simethicone (Aluminum/Magnesium Susp 30 Ml Udc) 15 ml PO Q4H PRN PRN Reason: Dyspepsia Stop: 07/15/22 15:34 Allopurinol (Allopurinol 300 Mg Tab) 300 mg PO DAILY [facility] Stop: 07/16/22 08:59 Last Admin: 06/16/22 10:21 Dose: 300 mg Apixaban (Apixaban 5 Mg Tablet) 5 mg PO BID [facility] Stop: 07/19/22 09:44 Last Admin: 06/19/22 20:03 Dose: 5 mg Artificial Tears (Artificial Tears) 1 drops OP Q2HWA [facility] Stop: 07/15/22 16:48 Last Admin: 06/20/22 04:59 Dose: 1 drops Aspirin (Aspirin 81 Mg Ectab) 81 mg PO DAILY [facility] Stop: 07/16/22 08:59 Last Admin: 06/16/22 10:21 Dose: 81 mg Atorvastatin Calcium (Atorvastatin 10 Mg Tab) 10 mg PO DAILY [facility] Stop: 07/16/22 08:59 Last Admin: 06/19/22 08:28 Dose: 10 mg Bupropion HCl (Bupropion Xl 150 Mg Tabcr) 150 mg PO DAILY [facility] Stop: 07/16/22 08:59 Dextrose (Dextrose 50% 50 Ml Syringe) 25 - 50 ml IV UD PRN; Protocol PRN Reason: Hypoglycemia Protocol Stop: 07/15/22 15:56 Digoxin (Digoxin 0.125 Mg Tab) 0.125 mg PO DAILY@1600 [facility] Stop: 07/16/22 15:59 Last Admin: 06/19/22 16:57 Dose: 0.125 mg Duloxetine HCl (Duloxetine Hcl 60 Mg Cap) 60 mg PO DAILY [facility] Stop: 07/16/22 08:59 Last Admin: 06/16/22 10:21 Dose: 60 mg Erythromycin (Erythromycin Op Oint 5 Mg/Gm 3.5 Gm Tube) 1 appln OPB DAILY [facility] Stop: 06/26/22 08:59 Last Admin: 06/19/22 08:30 Dose: 1 appln Gabapentin (Gabapentin 300 Mg Cap) 300 mg PO QID [facility] Stop: 07/15/22 16:59 Last Admin: 06/15/22 20:19 Dose: 300 mg Glucagon (Glucagon For Inj 1 Mg Vial) 1 mg SQ UD PRN; Protocol PRN Reason: Hypoglycemia Protocol Stop: 07/15/22 15:56 Glucose (Glucose 40% Gel 15 Gm Tube) 15 - 30 gm PO UD PRN; Protocol PRN Reason: Hypoglycemia Protocol Stop: 07/15/22 15:56 Glucose (Glucose 10 Tab/Tube) 4 - 8 tab PO UD PRN; Protocol PRN Reason: Hypoglycemia Treatment Stop: 07/15/22 15:56 Guaifenesin (Guaifenesin 600 Mg Tabcr) 600 mg PO Q12 [facility] Stop: 07/18/22 20:59 Last Admin: 06/19/22 20:04 Dose: 600 mg Doxycycline Hyclate 100 mg/ (Dextrose) 110 mls @ 50 mls/hr IV Q12H [facility] Stop: 06/20/22 08:11 Last Infusion: 06/20/22 07:31 Dose: Infused Ampicillin Sodium/Sulbactam Sodium 3,000 mg/ Sodium Chloride 108 mls @ 216 mls/hr IV Q6H [facility]; Protocol Stop: 06/23/22 09:59 Last Infusion: 06/20/22 07:31 Dose: Infused Insulin Aspart (Insulin Aspart Per Unit) 0 units SC ACHS [facility] Stop: 07/17/22 08:44 Last Admin: 06/19/22 20:35 Dose: 3 units Insulin Glargine (Lantus Per Unit Charge) 25 units SQ HS [facility] Stop: 07/19/22 20:59 Last Admin: 06/19/22 20:34 Dose: 25 units Insulin Glargine (Lantus Per Unit Charge) 20 units SQ QAM [facility] Stop: 07/20/22 08:59 Ipratropium Logan (Ipratropium Logan Neb Soln 0.02% 2.5 Ml Vial) 0.5 mg INH QIDR [facility] Stop: 07/16/22 06:59 Last Admin: 06/20/22 07:13 Dose: 0.5 mg Levalbuterol HCl (Levalbuterol 1.25mg/0.5ml Neb) 1.25 mg INH QIDR [facility] Stop: 07/16/22 06:59 Last Admin: 06/20/22 07:13 Dose: 1.25 mg Levothyroxine Sodium (Levothyroxine Sodium 125 Mcg Tablet) 250 mcg PO DAILYBB [facility] Stop: 07/16/22 06:29 Last Admin: 06/20/22 05:00 Dose: 250 mcg Loratadine (Loratadine 10 Mg Tab) 20 mg PO DAILY PRN PRN Reason: .allergies Stop: 07/15/22 16:14 Magnesium Hydroxide (Magnesium Hydroxide Susp 30 Ml Udc) 30 ml PO Q12H PRN PRN Reason: Constipation Stop: 07/15/22 15:34 Magnesium Oxide (Magnesium Oxide 400 Mg Tab) 400 mg PO DAILY [facility] Stop: 07/16/22 08:59 Last Admin: 06/19/22 09:59 Dose: 400 mg Metoprolol Succinate (Metoprolol Succ 50mg Ext Rel Tab) 50 mg PO TID [facility] Stop: 07/19/22 13:59 Last Admin: 06/19/22 20:04 Dose: 50 mg Miscellaneous (Carbohydrates For Hypoglycemia ) 15 - 30 gm PO UD PRN PRN Reason: Hypoglycemia Protocol Stop: 07/15/22 15:56 Miscellaneous (Remove Lidoderm Patch) 1 each N/A DAILY@2100 [facility] Stop: 07/15/22 20:59 Last Admin: 06/19/22 20:06 Dose: 1 each Miscellaneous Information (Pharmacy Glycemic Mgmt Consult) 1 each N/A UD PRN PRN Reason: Consult Stop: 07/15/22 15:56 Multivitamins (Multivitamin Tab) 1 tab PO DAILY [facility] Stop: 07/16/22 08:59 Last Admin: 06/19/22 08:28 Dose: 1 tab Nystatin (Nystatin Powder 15gm Btl) 1 appln EXT BID [facility] Stop: 07/15/22 20:59 Last Admin: 06/19/22 20:05 Dose: 1 appln Ondansetron HCl (Ondansetron Inj 2 Mg/Ml 2 Ml Vial) 4 mg IV Q6H PRN PRN Reason: Nausea Stop: 07/15/22 15:34 Oseltamivir Phosphate (Oseltamivir Phosphate 75 Mg Cap) 75 mg PO BID [facility] Stop: 06/20/22 09:01 Last Admin: 06/19/22 20:05 Dose: 75 mg Oxycodone HCl (Oxycodone Hcl Ir 5 Mg Tab (Immediate Release)) 5 mg PO Q4H PRN PRN Reason: Moderate to Severe Pain Stop: 07/02/22 11:17 Last Admin: 06/18/22 15:19 Dose: 5 mg Pantoprazole Sodium (Pantoprazole 40 Mg Tab) 40 mg PO DAILY [facility] Stop: 07/16/22 08:59 Last Admin: 06/19/22 08:29 Dose: 40 mg Polyethylene Glycol (Polyethylene (Miralax) 17 Gm Pack) 17 gm PO DAILY [facility] Stop: 07/19/22 13:59 Last Admin: 06/19/22 14:15 Dose: 17 gm Potassium Chloride (Potassium Chloride Crtab 20 Meq Tabcr) 20 meq PO DAILY [facility] Stop: 07/16/22 08:59 Last Admin: 06/19/22 08:34 Dose: 20 meq Sennosides (Senna 8.6 Mg Tab) 8.6 mg PO BID [facility] Stop: 07/15/22 20:59 Last Admin: 06/19/22 20:06 Dose: Not Given Sodium Chloride (Sodium Chlor 7% 4 Ml Neb) 4 ml NEB BIDR [facility] Stop: 07/16/22 18:59 Last Admin: 06/20/22 07:13 Dose: 4 ml
[2022-06-20] MEDS ORDERED: LANTUS PER UNIT CHARGE SQ SCH (09:00)
[2022-06-20] MEDS: INSULIN ASPART PER UNIT SC SCH ×5 (09:21→23:43)
[2022-06-20] MEDS: guaiFENesin 600 MG TABCR PO SCH ×2 (09:22→20:03)
[2022-06-20] MEDS: MULTIVITAMIN TAB PO SCH (09:23)
[2022-06-20] MEDS: POLYETHYLENE (MIRALAX) 17 GM PACK PO SCH (09:23)
[2022-06-20] MEDS: OSELTAMIVIR PHOSPHATE 75 MG CAP PO SCH ×2 (09:23→20:06)
[2022-06-20] MEDS: METOPROLOL SUCC 50MG EXT REL TAB PO SCH ×2 (09:23→20:06)
[2022-06-20] MEDS: SENNA 8.6 MG TAB PO SCH ×2 (09:23→20:07)
[2022-06-20] MEDS: PANTOprazole 40 MG TAB PO SCH (09:23)
[2022-06-20] MEDS: ERYTHROMYCIN OP OINT 5 MG/GM 3.5 GM TUBE OPB SCH (09:24)
[2022-06-20] MEDS: MAGNESIUM OXIDE 400 MG TAB PO SCH (09:24)
[2022-06-20] MEDS: ATORVASTATIN 10 MG TAB PO SCH (09:24)
[2022-06-20] MEDS: NYSTATIN POWDER 15GM BTL EXT SCH ×2 (09:24→20:08)
[2022-06-20] MEDS: APIXABAN 5 MG TABLET PO SCH ×2 (09:24→20:03)
[2022-06-20] MEDS: POTASSIUM CHLORIDE CRTAB 20 MEQ TABCR PO SCH (09:29)
[2022-06-20] MEDS: oxyCODONE HCL IR 5 MG TAB (IMMEDIATE RELEASE) PO PRN (09:37)
--- NOTE | 2022-06-20 12:14 | Cardiology Progress Note ---
Date of Service June 20, 2022 Assessment & Plan (1) Respiratory failure with hypoxia: (2) Influenza A: (3) Chronic diastolic CHF (congestive heart failure): (4) SALAS (obstructive sleep apnea): (5) Morbid obesity: (6) Atrial fibrillation: (7) Pacemaker: Plan Patient continues to improve pulmonary status with superimposed atrial fibrillation with elevated ventricular rate response, chronic diastolic heart failure Plan: Increase metoprolol succinate to 100 mg twice per day for further rate control (pacemaker in place). Blood pressure will allow Anticoagulation with apixaban Resume oral furosemide at 40 mg/day at usual dosing Recent renal failure limits use of spironolactone Admission and Anticipated Discharge Date Admission Date: June 15, 2022 Subjective Patient seen and examined, chart, medications, telemetry reviewed. Continues to improve less dyspnea and oxygen demands. Good diuresis yesterday with less edema today. Heart rate still elevated with chronic atrial fibrillation Review of Systems Review of Systems: All systems reviewed & are unremarkable except as noted in Subjective Physical Exam Constitutional: + obese; no acute distress Neck: trachea midline, no thyromegaly + thick neck Cardiovascular: Rate/Rhythm: + tachycardic and + irregularly irregular Vessels: no JVD Extremities: + edema (1+) Gastrointestinal (Abdomen): normal bowel sounds, soft, nontender, no hep atosplenomegaly Results & Data ([facility]) Vital Signs (Past 12 Hours) Vital Signs Temp Pulse Pulse Resp BP Pulse Ox O2 Del Method 06/20/22 12:01 36.5 C 118 H 18 125/86 92 Room Air 06/20/22 10:45 77 18 90 Room Air 06/20/22 10:33 Room Air 06/20/22 07:54 36.4 C L 109 H 17 149/86 H 92 Room Air 06/20/22 07:30 120 H 06/20/22 07:15 108 H 18 93 Room Air 06/20/22 03:09 36.4 C L 111 H 20 120/61 91 Room Air Laboratory Results Laboratory Results - last 24 hr 06/19/22 06/19/22 06/20/22 16:20 20:23 05:40 WBC 5.46 RBC 4.48 L Hgb 12.2 L Hct 38.3 L MCV 85.5 MCH 27.2 MCHC 31.9 L RDW Std Deviation 43.9 RDW Coeff of Baldo 14.3 Plt Count 154 MPV 11.2 Sodium Potassium Chloride Carbon Dioxide Anion Gap BUN Creatinine Est Cr Clr Drug Dosing Est GFR ( Amer) Est GFR (Non-Af Amer) BUN/Creatinine Ratio Glucose POC Glucose 157 H 163 H Calcium Phosphorus Magnesium 06/20/22 06/20/22 06/20/22 05:40 07:14 11:35 WBC RBC Hgb Hct MCV MCH MCHC RDW Std Deviation RDW Coeff of Baldo Plt Count MPV Sodium 140 Potassium 4.0 Chloride 107 Carbon Dioxide 27 Anion Gap 6 BUN 27 H Creatinine 0.97 Est Cr Clr Drug Dosing 99.7 Est GFR ( Amer) 91.3 Est GFR (Non-Af Amer) 78.8 BUN/Creatinine Ratio 27.8 H Glucose 86 POC Glucose 90 137 H Calcium 9.0 Phosphorus 2.1 L Magnesium 2.0 (1) Atrial fibrillation Atrial fibrillation type: unspecified Qualified Code(s): I48.91 - Unspecified atrial fibrillation
[2022-06-20] MEDS ORDERED: METOPROLOL SUCC 50MG EXT REL TAB PO ONE (12:17)
--- NOTE | 2022-06-20 12:20 | Pharmacy Report ---
Pharmacy Glycemic Short Note 2 - Date of Service June 20, 2022 - Glycemic Short BSG Results (Last 24 hours): 06/19/22 06/19/22 06/20/22 16:20 20:23 05:40 Glucose 86 POC Glucose 157 H 163 H 06/20/22 06/20/22 07:14 11:35 Glucose POC Glucose 90 137 H OUTPATIENT ANTIDIABETIC REGIMEN: * Lantus 100 units SQ QAM & 55 units HS * Novolin R 12 unts SQ ACHS ASSESSMENT: 06/20 * Heparin drip discontinued on 06/19. Diet advanced to easy to chew * Total basal insulin yesterday was 100 units and total bolus insulin was 37 units with resulting BSGs of [phone] mg/dL * Fasting BSG this morning was 86; therefore AM lantus was decreased to 20 units to prevent hypoglycemia * Will add a PM Lantus scale 06/18 * Stressors mostly stable - heparin drip continues. Diet advanced from clear liq to T2DM. * BSG's have been persistenly elevated since transition off drip yesterday, mostly in low 200's. AM fasting BSG did trend down, but this was after two doses of correctional insulin overnight * Will increase Lantus. Regimen similar to previous admission(s) * Will tighten Novolog parameters. Regimen similar to last day of previous admission. 06/17: * The insulin infusion was held ~ 0630 this morning due to significant decrease in BSG. Discussed with provider and proceeded with a basal/bolus regimen and elected to continue to hold the drip at this time. As patient was ordered a clear liquid diet only this morning, a more conservative AM dose was ordered. Will add a lantus scale for this evening as well as overnight BSG checks and coverage as appropriate. * In the past, patient has had varying requirements and BSGs have fluctuated greatly. * Steroids were not continued but patient does remain on a heparin infusion ~26 units/hr 06/16 * Received 40 units basal insulin yesterday evening on admission. Unsure of morning basal dose given prior to admission. Fasting BSG was 238 mg/dl this morning. Could be elevated due to one dose of Solumedrol. Patient known to glycemic service on previous admissions to receive 100 - 120 units of basal insulin. NPO today therefore received a one time basal dose of 60 units this morning. On CF of 10 and Carb ratio of 3 * Patient oxygen status worsening, transferred to the ICU. Plan to start Insulin drip per ICU protocol this afternoon. PLAN FOR INPATIENT GLYCEMIC CONTROL: * Basal inusulin: * Lantus 20 units x 1 this Am * Lantus scale for BSG: less than 140 mg/dL = 15 units; 140 to 180 mg/dL = 20 units; greater than 180 mg/dL = 25 units * Bolus insulin * NovoLog per scale ACHS or Q6hrs while NPO and overnight checks * Goal Range: Low 110 mg/dL - High 140 mg/dL * Correction Factor: 10 mg/dL/unit * Nutritional / Prandial insulin per carb ratio of 1 unit per 3 grams CHO consumed
[2022-06-20] MEDS: FUROSEMIDE 40 MG TAB PO SCH (12:50)
[2022-06-20] MEDS: DIGOXIN 0.125 MG TAB PO SCH (17:15)
[2022-06-20] MEDS: LANTUS PER UNIT CHARGE SQ SCH (20:12)
[2022-06-21] MEDS: AMPICILLIN/SULBACTAM SOD 3,000 MG in 0.9 % SODIUM CHLORIDE 100 ML IV SCH ×4 (05:48→23:58)
[2022-06-21] MEDS: ARTIFICIAL TEARS OP SCH ×9 (05:49→21:39)
[2022-06-21] MEDS: LEVOTHYROXINE SODIUM 125 MCG TABLET PO SCH (05:51)
[2022-06-21] MEDS: INSULIN ASPART PER UNIT SC SCH ×5 (05:55→20:24)
[2022-06-21] MEDS: oxyCODONE HCL IR 5 MG TAB (IMMEDIATE RELEASE) PO PRN ×2 (05:58→10:30)
[2022-06-21 06:02] LABS: Hematocrit (blood only) 39.6 % (40.1-51.0); Hemoglobin 12.6 g/dl (14.0-18.0); Mean Corpuscular Hemoglobin 27.6 pg (25.0-34.0); Mean Corpuscular Hgb Conc 31.8 g/dL (32.0-36.0); Mean Corpuscular Volume 86.8 fL (80.0-100.0); Mean Platelet Volume 10.5 fL (9.4-12.4); Platelet Count 160 K/uL (130-400); RDW Coefficient of Variation 14.5 % (11.5-14.5); RDW Standard Deviation 45.7 fL (36.4-46.3); Red Blood Count 4.56 M/uL (4.63-6.08); White Blood Count 7.46 K/ul (4.8-10.8)
[2022-06-21 06:21] LABS: BUN Creatinine Ratio 22.4 (10-20); Creatinine Clr Calc Pharmacy 90.4 ml/min; Est GFR (African American) 81.1 ml/min; Magnesium 1.9 mg/dl (1.7-2.4); Phosphorus 2.9 mg/dl (2.5-4.9); Potassium 4.7 mmol/L (3.5-5.1)
[2022-06-21] MEDS: LEVALBUTEROL 1.25MG/0.5ML NEB INH SCH ×3 (07:34→15:32)
[2022-06-21] MEDS: IPRATROPIUM BROMIDE NEB SOLN 0.02% 2.5 ML VIAL INH SCH ×3 (07:34→15:32)
[2022-06-21] MEDS: SODIUM CHLOR 7% 4 ML NEB NEB SCH (07:34)
--- NOTE | 2022-06-21 08:13 | Hospitalist Progress Note ---
Date of Service June 21, 2022 Assessment & Plan (1) Respiratory failure with hypoxia: Plan 72 yo M w/ morbid obesity, HFpEF [TTE F 50 to 60%], SSS status post PPM/PE on anticoagulation, COPD/ILD, SALAS on CPAP, DM 2 on insulin, hypothyroidism, CKD [baseline 1.5-2], chronic anemia presented to ED 06/15 from [facility] NF d/t being lethargic and SPO2 85 to 88 % on RA. Patient was found to have flu A at ED, CXR with concern of mild pulmonary edema at presentation. He is being managed for the following: Acute hypoxic respiratory failure: Likely secondary to influenza and acute on chronic diastolic heart failure Acute on chronic diastolic heart failure Sepsis POA 2/2 viral infection & Influenza : Respiratory rate and temperature elevated at presentation. Possible superimposed bacterial infection Acute metabolic encephalopathy Patient was admitted due to concern of hypoxia and encephalopathy at [facility] on the day of arrival. Admitting WBC and Pro-Sreedhar WNL, admitting BNP 340/elevated from prior. Admitting temperature of 39.2C Admitting CXR with mild pulmonary edema. 12/28/2021 echo: EF 55 to 60%, study was technically difficult. 06/16 CT Chest: 1. Patchy bilateral perihilar airspace opacities with areas of dense consolidation within the bilateral lower lobes. This favors a pneumonia and could be due to aspiration. 2. There is also mild interlobular septal thickening. This raises the possibility of superimposed mild pulmonary edema. 3. Interval progression of the extensive mediastinal and bilateral hilar lymphadenopathy. The bilateral hilar lymph nodes result in mild to moderate narrowing of the central airways. This could be reactive to the suspected pneumonia. However, a neoplastic process remains the diagnosis of exclusion. Follow-up recommended to ensure stability/resolution. Consider follow-up pulmonary consultation. 4. Trace bilateral pleural effusions. 5. Additional findings as described above. Encephalopathy secondary to acute illness and hypoxia --> Resolved Acute on chronic diastolic failure, cardiology consulted - gentle diuresis - monitor renal function, Valentine, I's and O's. c/w BiPAP, close hemodynamic monitoring, continued with Zosyn started 06/16, -> switched to Unasyn 06/18, stopped doxycycline, follow 08/16 blood culture --[id number]. Continue Tamiflu. Pulmonary medicine f/u as OP. Acute kidney injury: resolved CTAP w/ no hydronephrosis, Valentine in place, monitor labs, avoid nephrotoxins - cautious diuresis -> now switched to PO lasix H/O A. fib and pacemaker placement: Eliquis resumed, heparin infusion stopped Continues to be in Afib w/ RVR,cardiology following- cont. digoxin, metoprolol tartrate switched to succinate 100 mg BID Other chronic medical conditions: Resume meds as able. DVT prophylaxis: Alicja Full code Dispo: likely plan to DC to [facility] on Thursday Admission and Anticipated Discharge Date Admission Date: June 15, 2022 Subjective Patient seen in follow-up of acute hypoxic respiratory failure and encephalopathy secondary to influenza A, Afib w/ RVR, acute on chronic diastolic heart failure, acute kidney injury. Currently pt is laying in bed, in no acute distress, breathing comfortably on room air. Denies any acute events overnight No chest pain , palpitations, shortness of breath Review of Systems Review of Systems: All systems reviewed & are unremarkable except as noted in Subjective Physical Exam Physical Exam: GENERAL: Alert and oriented, in NAD. on RA. Obese cla ss III. HEENT:EOM I. Pupils equal, r ound and reactive to light. Oral mu cosa moist. NECK: thick and short H EART: S1 and S2 h eard. irregular. tachycardia resol chato No murmur, no gallop. RESPIRATOR Y: Normal AP diam eter. No accessor y muscle use. No wheezing, no crack les noted ABDOMEN: Soft, bowel soun ds present, nonten margarito, no distention . NEURO: No facia l droop. Speech i s clear. Answers appropriately. Mov es extremities. EX TREMITIES:1+ ble edema, chronic ski n changes ble Results & Data Results & Data ([facility]) Vital Signs (Past 12 Hours) Vital Signs Temp Pulse Pulse Resp BP Pulse Ox O2 Del Method 06/21/22 08:04 36.7 C 73 20 109/69 95 Room Air 06/21/22 07:39 73 16 95 Room Air 06/21/22 07:09 100 H 06/21/22 03:30 36.7 C 83 18 134/70 92 Room Air 06/20/22 23:51 36.6 C 97 H 18 141/78 H 99 BiPAP 06/20/22 22:47 104 H 25 H 99 06/20/22 21:07 Room Air FiO2 06/21/22 08:04 06/21/22 07:39 06/21/22 07:09 06/21/22 03:30 06/20/22 23:51 06/20/22 22:47 35 06/20/22 21:07 Laboratory Results 06/21/22 06/21/22 06/21/22 Range/Units 07:42 05:46 05:42 WBC (4.8-10.8) K/ul RBC (4.63-6.08) M/uL Hgb (14.0-18.0) g/dl Hct (40.1-51.0) % MCV (80.0-100.0) fL MCH (25.0-34.0) pg MCHC (32.0-36.0) g/dL RDW Std Deviation (36.4-46.3) fL RDW Coeff of Baldo (11.5-14.5) % Plt Count (130-400) K/uL MPV (9.4-12.4) fL Sodium 137 (136-145) mmol/L Potassium 4.7 (3.5-5.1) mmol/L Chloride 104 (98-107) mmol/L Carbon Dioxide 28 (21-32) mmol/L Anion Gap 5 (3-11) BUN 24 H (6-23) mg/dl Creatinine 1.07 (0.6-1.4) mg/dl Est Cr Clr Drug Dosing 90.4 ml/min Est GFR ( Amer) 81.1 ml/min Est GFR (Non-Af Amer) 70.0 ml/min BUN/Creatinine Ratio 22.4 H (10-20) Glucose 189 H (70-99(Fasting)) mg/dl POC Glucose 171 H 187 H (70-99) mg/dl Calcium 9.0 (8.5-10.1) mg/dl Phosphorus 2.9 (2.5-4.9) mg/dl Magnesium 1.9 (1.7-2.4) mg/dl 06/21/22 06/20/22 06/20/22 Range/Units 05:42 23:43 19:57 WBC 7.46 (4.8-10.8) K/ul RBC 4.56 L (4.63-6.08) M/uL Hgb 12.6 L (14.0-18.0) g/dl Hct 39.6 L (40.1-51.0) % MCV 86.8 (80.0-100.0) fL MCH 27.6 (25.0-34.0) pg MCHC 31.8 L (32.0-36.0) g/dL RDW Std Deviation 45.7 (36.4-46.3) fL RDW Coeff of Baldo 14.5 (11.5-14.5) % Plt Count 160 (130-400) K/uL MPV 10.5 (9.4-12.4) fL Sodium (136-145) mmol/L Potassium (3.5-5.1) mmol/L Chloride (98-107) mmol/L Carbon Dioxide (21-32) mmol/L Anion Gap (3-11) BUN (6-23) mg/dl Creatinine (0.6-1.4) mg/dl Est Cr Clr Drug Dosing ml/min Est GFR ( Amer) ml/min Est GFR (Non-Af Amer) ml/min BUN/Creatinine Ratio (10-20) Glucose (70-99(Fasting)) mg/dl POC Glucose 129 H 129 H (70-99) mg/dl Calcium (8.5-10.1) mg/dl Phosphorus (2.5-4.9) mg/dl Magnesium (1.7-2.4) mg/dl 06/20/22 06/20/22 Range/Units 16:23 11:35 WBC (4.8-10.8) K/ul RBC (4.63-6.08) M/uL Hgb (14.0-18.0) g/dl Hct (40.1-51.0) % MCV (80.0-100.0) fL MCH (25.0-34.0) pg MCHC (32.0-36.0) g/dL RDW Std Deviation (36.4-46.3) fL RDW Coeff of Baldo (11.5-14.5) % Plt Count (130-400) K/uL MPV (9.4-12.4) fL Sodium (136-145) mmol/L Potassium (3.5-5.1) mmol/L Chloride (98-107) mmol/L Carbon Dioxide (21-32) mmol/L Anion Gap (3-11) BUN (6-23) mg/dl Creatinine (0.6-1.4) mg/dl Est Cr Clr Drug Dosing ml/min Est GFR ( Amer) ml/min Est GFR (Non-Af Amer) ml/min BUN/Creatinine Ratio (10-20) Glucose (70-99(Fasting)) mg/dl POC Glucose 75 137 H (70-99) mg/dl Calcium (8.5-10.1) mg/dl Phosphorus (2.5-4.9) mg/dl Magnesium (1.7-2.4) mg/dl Medications Administered Current Inpatient Medications Acetaminophen (Acetaminophen 325 Mg Tab) 650 mg PO Q4H PRN PRN Reason: Mild Pain or Fever Stop: 07/15/22 15:34 Last Admin: 06/19/22 16:59 Dose: 650 mg Al Hydrox/Mg Hydrox/Simethicone (Aluminum/Magnesium Susp 30 Ml Udc) 15 ml PO Q4H PRN PRN Reason: Dyspepsia Stop: 07/15/22 15:34 Allopurinol (Allopurinol 300 Mg Tab) 300 mg PO DAILY OFE Stop: 07/16/22 08:59 Last Admin: 06/16/22 10:21 Dose: 300 mg Apixaban (Apixaban 5 Mg Tablet) 5 mg PO BID OFE Stop: 07/19/22 09:44 Last Admin: 06/20/22 20:03 Dose: 5 mg Artificial Tears (Artificial Tears) 1 drops OP Q2HWA OFE Stop: 07/15/22 16:48 Last Admin: 06/21/22 05:49 Dose: 1 drops Aspirin (Aspirin 81 Mg Ectab) 81 mg PO DAILY OFE Stop: 07/16/22 08:59 Last Admin: 06/16/22 10:21 Dose: 81 mg Atorvastatin Calcium (Atorvastatin 10 Mg Tab) 10 mg PO DAILY OFE Stop: 07/16/22 08:59 Last Admin: 06/20/22 09:24 Dose: 10 mg Bupropion HCl (Bupropion Xl 150 Mg Tabcr) 150 mg PO DAILY OFE Stop: 07/16/22 08:59 Dextrose (Dextrose 50% 50 Ml Syringe) 25 - 50 ml IV UD PRN; Protocol PRN Reason: Hypoglycemia Protocol Stop: 07/15/22 15:56 Digoxin (Digoxin 0.125 Mg Tab) 0.125 mg PO DAILY@1600 [facility] Stop: 07/16/22 15:59 Last Admin: 06/20/22 17:15 Dose: 0.125 mg Duloxetine HCl (Duloxetine Hcl 60 Mg Cap) 60 mg PO DAILY [facility] Stop: 07/16/22 08:59 Last Admin: 06/16/22 10:21 Dose: 60 mg Erythromycin (Erythromycin Op Oint 5 Mg/Gm 3.5 Gm Tube) 1 appln OPB DAILY [facility] Stop: 06/26/22 08:59 Last Admin: 06/20/22 09:24 Dose: 1 appln Furosemide (Furosemide 40 Mg Tab) 40 mg PO QAM [facility] Stop: 07/20/22 12:29 Last Admin: 06/20/22 12:50 Dose: 40 mg Gabapentin (Gabapentin 300 Mg Cap) 300 mg PO QID [facility] Stop: 07/15/22 16:59 Last Admin: 06/15/22 20:19 Dose: 300 mg Glucagon (Glucagon For Inj 1 Mg Vial) 1 mg SQ UD PRN; Protocol PRN Reason: Hypoglycemia Protocol Stop: 07/15/22 15:56 Glucose (Glucose 40% Gel 15 Gm Tube) 15 - 30 gm PO UD PRN; Protocol PRN Reason: Hypoglycemia Protocol Stop: 07/15/22 15:56 Glucose (Glucose 10 Tab/Tube) 4 - 8 tab PO UD PRN; Protocol PRN Reason: Hypoglycemia Treatment Stop: 07/15/22 15:56 Guaifenesin (Guaifenesin 600 Mg Tabcr) 600 mg PO Q12 [facility] Stop: 07/18/22 20:59 Last Admin: 06/20/22 20:03 Dose: 600 mg Ampicillin Sodium/Sulbactam Sodium 3,000 mg/ Sodium Chloride 108 mls @ 216 mls/hr IV Q6H [facility]; Protocol Stop: 06/23/22 09:59 Last Infusion: 06/21/22 07:52 Dose: Infused Insulin Aspart (Insulin Aspart Per Unit) 0 units SC ACHS [facility] Stop: 07/17/22 08:44 Last Admin: 06/20/22 20:05 Dose: Not Given Insulin Glargine (Lantus Per Unit Charge) 0 units SQ HS [facility]; Protocol Stop: 07/20/22 20:59 Last Admin: 06/20/22 20:12 Dose: 15 units Insulin Glargine (Lantus Per Unit Charge) 35 units SQ QAM [facility] Stop: 07/21/22 08:59 Ipratropium [place] (Ipratropium [place] Neb Soln 0.02% 2.5 Ml Vial) 0.5 mg INH QIDR [facility] Stop: 07/16/22 06:59 Last Admin: 06/21/22 07:34 Dose: 0.5 mg Levalbuterol HCl (Levalbuterol 1.25mg/0.5ml Neb) 1.25 mg INH QIDR [facility] Stop: 07/16/22 06:59 Last Admin: 06/21/22 07:34 Dose: 1.25 mg Levothyroxine Sodium (Levothyroxine Sodium 125 Mcg Tablet) 250 mcg PO DAILYBB [facility] Stop: 07/16/22 06:29 Last Admin: 06/21/22 05:51 Dose: 250 mcg Loratadine (Loratadine 10 Mg Tab) 20 mg PO DAILY PRN PRN Reason: .allergies Stop: 07/15/22 16:14 Magnesium Hydroxide (Magnesium Hydroxide Susp 30 Ml Udc) 30 ml PO Q12H PRN PRN Reason: Constipation Stop: 07/15/22 15:34 Magnesium Oxide (Magnesium Oxide 400 Mg Tab) 400 mg PO DAILY [facility] Stop: 07/16/22 08:59 Last Admin: 06/20/22 09:24 Dose: 400 mg Metoprolol Succinate (Metoprolol Succ 50mg Ext Rel Tab) 100 mg PO BID [facility] Stop: 07/20/22 20:59 Last Admin: 06/20/22 20:06 Dose: 100 mg Miscellaneous (Carbohydrates For Hypoglycemia ) 15 - 30 gm PO UD PRN PRN Reason: Hypoglycemia Protocol Stop: 07/15/22 15:56 Miscellaneous (Remove Lidoderm Patch) 1 each N/A DAILY@2100 [facility] Stop: 07/15/22 20:59 Last Admin: 06/20/22 20:07 Dose: 1 each Miscellaneous Information (Pharmacy Glycemic Mgmt Consult) 1 each N/A UD PRN PRN Reason: Consult Stop: 07/15/22 15:56 Multivitamins (Multivitamin Tab) 1 tab PO DAILY [facility] Stop: 07/16/22 08:59 Last Admin: 06/20/22 09:23 Dose: 1 tab Nystatin (Nystatin Powder 15gm Btl) 1 appln EXT BID [facility] Stop: 07/15/22 20:59 Last Admin: 06/20/22 20:08 Dose: 1 appln Ondansetron HCl (Ondansetron Inj 2 Mg/Ml 2 Ml Vial) 4 mg IV Q6H PRN PRN Reason: Nausea Stop: 07/15/22 15:34 Oseltamivir Phosphate (Oseltamivir Phosphate 75 Mg Cap) 75 mg PO BID [facility]; Protocol Stop: 06/22/22 12:00 Last Admin: 06/20/22 20:06 Dose: 75 mg Oxycodone HCl (Oxycodone Hcl Ir 5 Mg Tab (Immediate Release)) 5 mg PO Q4H PRN PRN Reason: Moderate to Severe Pain Stop: 07/02/22 11:17 Last Admin: 06/21/22 05:58 Dose: 5 mg Pantoprazole Sodium (Pantoprazole 40 Mg Tab) 40 mg PO DAILY [facility] Stop: 07/16/22 08:59 Last Admin: 06/20/22 09:23 Dose: 40 mg Polyethylene Glycol (Polyethylene (Miralax) 17 Gm Pack) 17 gm PO DAILY [facility] Stop: 07/19/22 13:59 Last Admin: 06/20/22 09:23 Dose: 17 gm Potassium Chloride (Potassium Chloride Crtab 20 Meq Tabcr) 20 meq PO DAILY [facility] Stop: 07/16/22 08:59 Last Admin: 06/20/22 09:29 Dose: 20 meq Sennosides (Senna 8.6 Mg Tab) 8.6 mg PO BID [facility] Stop: 07/15/22 20:59 Last Admin: 06/20/22 20:07 Dose: 8.6 mg Sodium Chloride (Sodium Chlor 7% 4 Ml Neb) 4 ml NEB BIDR [facility] Stop: 07/16/22 18:59 Last Admin: 06/21/22 07:34 Dose: 4 ml
[2022-06-21] MEDS ORDERED: LANTUS PER UNIT CHARGE SQ SCH (09:00)
[2022-06-21] MEDS: MAGNESIUM OXIDE 400 MG TAB PO SCH (09:12)
[2022-06-21] MEDS: SENNA 8.6 MG TAB PO SCH ×2 (09:12→21:02)
[2022-06-21] MEDS: PANTOprazole 40 MG TAB PO SCH (09:12)
[2022-06-21] MEDS: OSELTAMIVIR PHOSPHATE 75 MG CAP PO SCH ×2 (09:12→21:00)
[2022-06-21] MEDS: ATORVASTATIN 10 MG TAB PO SCH (09:12)
[2022-06-21] MEDS: METOPROLOL SUCC 50MG EXT REL TAB PO SCH ×2 (09:12→21:05)
[2022-06-21] MEDS: guaiFENesin 600 MG TABCR PO SCH ×2 (09:12→20:59)
[2022-06-21] MEDS: POLYETHYLENE (MIRALAX) 17 GM PACK PO SCH (09:12)
[2022-06-21] MEDS: MULTIVITAMIN TAB PO SCH (09:12)
[2022-06-21] MEDS: FUROSEMIDE 40 MG TAB PO SCH (09:12)
[2022-06-21] MEDS: APIXABAN 5 MG TABLET PO SCH ×2 (09:13→21:01)
[2022-06-21] MEDS: ERYTHROMYCIN OP OINT 5 MG/GM 3.5 GM TUBE OPB SCH (09:13)
[2022-06-21] MEDS: NYSTATIN POWDER 15GM BTL EXT SCH ×2 (09:14→21:01)
[2022-06-21] MEDS: POTASSIUM CHLORIDE CRTAB 20 MEQ TABCR PO SCH (09:22)
[2022-06-21] MEDS ORDERED: LANTUS PER UNIT CHARGE SQ ONE (11:30)
--- NOTE | 2022-06-21 15:19 | Pharmacy Report ---
Pharmacy Glycemic Short Note 2 - Date of Service June 21, 2022 - Glycemic Short BSG Results (Last 24 hours): 06/20/22 06/20/22 06/20/22 16:23 19:57 23:43 Glucose POC Glucose 75 129 H 129 H 06/21/22 06/21/22 06/21/22 05:42 05:46 07:42 Glucose 189 H POC Glucose 187 H 171 H 06/21/22 11:10 Glucose POC Glucose 291 H OUTPATIENT ANTIDIABETIC REGIMEN: * Lantus 100 units SQ QAM & 55 units HS * Novolin R 12 unts SQ ACHS HbA1c: 11.6% (06/16/22) ASSESSMENT: 06/21 * BSGs beginning to trend back up, likely related to significantly reduced basal insulin yesterday (35 units vs. ~100 units previously) * Will increase basal pretty aggressively today to make up for likely basal deficiency 06/20 * Heparin drip discontinued on 06/19. Diet advanced to easy to chew * Total basal insulin yesterday was 100 units and total bolus insulin was 37 units with resulting BSGs of [phone] mg/dL * Fasting BSG this morning was 86; therefore AM lantus was decreased to 20 units to prevent hypoglycemia * Will add a PM Lantus scale 06/18 * Stressors mostly stable - heparin drip continues. Diet advanced from clear liq to T2DM. * BSG's have been persistenly elevated since transition off drip yesterday, mostly in low 200's. AM fasting BSG did trend down, but this was after two doses of correctional insulin overnight * Will increase Lantus. Regimen similar to previous admission(s) * Will tighten Novolog parameters. Regimen similar to last day of previous admission. 06/16 * Received 40 units basal insulin yesterday evening on admission. Unsure of morning basal dose given prior to admission. Fasting BSG was 238 mg/dl this morning. Could be elevated due to one dose of Solumedrol. Patient known to glycemic service on previous admissions to receive 100 - 120 units of basal insulin. NPO today therefore received a one time basal dose of 60 units this morning. On CF of 10 and Carb ratio of 3 * Patient oxygen status worsening, transferred to the ICU. Plan to start Insulin drip per ICU protocol this afternoon. PLAN FOR INPATIENT GLYCEMIC CONTROL: * Basal inusulin: * Lantus 70 units SC today (35 units SC x 1 AM, 35 units SC x 1 afternoon) * Lantus 0-20 units SC HS * Bolus insulin * NovoLog per scale ACHS or Q6hrs while NPO and overnight checks * Goal Range: Low 110 mg/dL - High 140 mg/dL * Correction Factor: 10 mg/dL/unit * Nutritional / Prandial insulin per carb ratio of 1 unit per 3 grams CHO consumed
[2022-06-21] MEDS ORDERED: LEVALBUTEROL 1.25MG/0.5ML NEB INH PRN (16:51)
[2022-06-21] MEDS ORDERED: IPRATROPIUM BROMIDE NEB SOLN 0.02% 2.5 ML VIAL INH PRN (16:51)
[2022-06-21] MEDS: DIGOXIN 0.125 MG TAB PO SCH (17:00)
[2022-06-21] MEDS: LANTUS PER UNIT CHARGE SQ SCH (20:52)
[2022-06-21] MEDS: ACETAMINOPHEN 325 MG TAB PO PRN (21:38)
[2022-06-22] MEDS: ARTIFICIAL TEARS OP SCH ×9 (05:20→21:59)
[2022-06-22] MEDS: AMPICILLIN/SULBACTAM SOD 3,000 MG in 0.9 % SODIUM CHLORIDE 100 ML IV SCH ×3 (05:20→17:47)
[2022-06-22] MEDS: LEVOTHYROXINE SODIUM 125 MCG TABLET PO SCH (05:57)
[2022-06-22] MEDS: ACETAMINOPHEN 325 MG TAB PO PRN ×2 (06:37→21:58)
[2022-06-22] MEDS: oxyCODONE HCL IR 5 MG TAB (IMMEDIATE RELEASE) PO PRN ×2 (07:09→12:26)
--- NOTE | 2022-06-22 07:24 | Hospitalist Progress Note ---
Date of Service June 22, 2022 Assessment & Plan (1) Respiratory failure with hypoxia: Plan 72 yo M w/ morbid obesity, HFpEF [TTE F 50 to 60%], SSS status post PPM/PE on anticoagulation, COPD/ILD, SALAS on CPAP, DM 2 on insulin, hypothyroidism, CKD [baseline 1.5-2], chronic anemia presented to ED 06/15 from [facility] [place] NF d/t being lethargic and SPO2 85 to 88 % on RA. Patient was found to have flu A at ED, CXR with concern of mild pulmonary edema at presentation. He is being managed for the following: Acute hypoxic respiratory failure: Likely secondary to influenza and acute on chronic diastolic heart failure Acute on chronic diastolic heart failure Sepsis POA 2/2 viral infection & Influenza : Respiratory rate and temperature elevated at presentation. Possible superimposed bacterial infection Acute metabolic encephalopathy Patient was admitted due to concern of hypoxia and encephalopathy at [facility] on the day of arrival. Admitting WBC and Pro-Sreedhar WNL, admitting BNP 340/elevated from prior. Admitting temperature of 39.2C Admitting CXR with mild pulmonary edema. 12/28/2021 echo: EF 55 to 60%, study was technically difficult. 06/16 CT Chest: 1. Patchy bilateral perihilar airspace opacities with areas of dense consolidation within the bilateral lower lobes. This favors a pneumonia and could be due to aspiration. 2. There is also mild interlobular septal thickening. This raises the possibility of superimposed mild pulmonary edema. 3. Interval progression of the extensive mediastinal and bilateral hilar lymphadenopathy. The bilateral hilar lymph nodes result in mild to moderate narrowing of the central airways. This could be reactive to the suspected pneumonia. However, a neoplastic process remains the diagnosis of exclusion. Follow-up recommended to ensure stability/resolution. Consider follow-up pulmonary consultation. 4. Trace bilateral pleural effusions. 5. Additional findings as described above. Encephalopathy secondary to acute illness and hypoxia --> Resolved Acute on chronic diastolic failure, cardiology consulted - gentle diuresis - monitor renal function, Valentine, I's and O's. c/w BiPAP, close hemodynamic monitoring, continued with Zosyn started 06/16, -> switched to Unasyn 06/18, stopped doxycycline, follow 08/16 blood culture --[id number]. Continue Tamiflu. Pulmonary medicine f/u as OP. Acute kidney injury: resolved CTAP w/ no hydronephrosis, Valentine in place, monitor labs, avoid nephrotoxins - cautious diuresis -> now switched to PO lasix H/O A. fib and pacemaker placement: Eliquis resumed, heparin infusion stopped Continues to be in Afib w/ RVR,cardiology following- cont. digoxin, metoprolol tartrate switched to succinate 100 mg BID Other chronic medical conditions: Resume meds as able. DVT prophylaxis: Alicja Full code Dispo: likely plan to DC to [facility] on Thursday Admission and Anticipated Discharge Date Admission Date: June 15, 2022 Subjective Patient seen in follow-up of acute hypoxic respiratory failure and encephalopathy secondary to influenza A, Afib w/ RVR, acute on chronic diastolic heart failure, acute kidney injury. Currently pt is laying in bed, in no acute distress, breathing comfortably on room air. Denies any acute events overnight No chest pain , palpitations, shortness of breath Plan for nocturnal study tonight Review of Systems Review of Systems: All systems reviewed & are unremarkable except as noted in Subjective Physical Exam Physical Exam: GENERAL: Alert and oriented, in NAD. on RA. Obese cla ss III. HEENT:EOM I. Pupils equal, r ound and reactive to light. Oral mu cosa moist. NECK: thick and short H EART: S1 and S2 h eard. irregular. tachycardia resol chato No murmur, no gallop. RESPIRATOR Y: Normal AP diam eter. No accessor y muscle use. No wheezing, no crack les noted ABDOMEN: Soft, bowel soun ds present, nonten margarito, no distention . NEURO: No facia l droop. Speech i s clear. Answers appropriately. Mov es extremities. EX TREMITIES:1+ ble edema, chronic ski n changes ble Results & Data Results & Data ([facility]) Vital Signs (Past 12 Hours) Vital Signs Temp Pulse Pulse Resp BP Pulse Ox O2 Del Method 06/22/22 03:43 36.8 C 97 H 19 164/85 H Room Air 06/21/22 23:56 36.6 C 78 19 123/84 94 Room Air 06/21/22 22:50 109 H 17 98 06/21/22 21:54 Room Air 06/21/22 21:02 99 H 105/53 L FiO2 06/22/22 03:43 06/21/22 23:56 06/21/22 22:50 35 06/21/22 21:54 06/21/22 21:02 Laboratory Results 06/22/22 06/22/22 06/22/22 Range/Units 11:34 07:14 07:10 Sodium 137 (136-145) mmol/L Potassium 4.3 (3.5-5.1) mmol/L Chloride 103 (98-107) mmol/L Carbon Dioxide 28 (21-32) mmol/L Anion Gap 6 (3-11) BUN 24 H (6-23) mg/dl Creatinine 0.98 (0.6-1.4) mg/dl Est Cr Clr Drug Dosing 98.8 ml/min Est GFR ( Amer) 90.2 ml/min Est GFR (Non-Af Amer) 77.8 ml/min BUN/Creatinine Ratio 24.5 H (10-20) Glucose 150 H (70-99(Fasting)) mg/dl POC Glucose 239 H 147 H (70-99) mg/dl Calcium 9.0 (8.5-10.1) mg/dl Phosphorus 3.3 (2.5-4.9) mg/dl Magnesium 1.8 (1.7-2.4) mg/dl 06/21/22 06/21/22 06/21/22 Range/Units 20:08 16:24 16:23 Sodium (136-145) mmol/L Potassium (3.5-5.1) mmol/L Chloride (98-107) mmol/L Carbon Dioxide (21-32) mmol/L Anion Gap (3-11) BUN (6-23) mg/dl Creatinine (0.6-1.4) mg/dl Est Cr Clr Drug Dosing ml/min Est GFR ( Amer) ml/min Est GFR (Non-Af Amer) ml/min BUN/Creatinine Ratio (10-20) Glucose (70-99(Fasting)) mg/dl POC Glucose 101 H 70 69 L* (70-99) mg/dl Calcium (8.5-10.1) mg/dl Phosphorus (2.5-4.9) mg/dl Magnesium (1.7-2.4) mg/dl Medications Administered Current Inpatient Medications Acetaminophen (Acetaminophen 325 Mg Tab) 650 mg PO Q4H PRN PRN Reason: Mild Pain or Fever Stop: 07/15/22 15:34 Last Admin: 06/22/22 06:37 Dose: 650 mg Al Hydrox/Mg Hydrox/Simethicone (Aluminum/Magnesium Susp 30 Ml Udc) 15 ml PO Q4H PRN PRN Reason: Dyspepsia Stop: 07/15/22 15:34 Allopurinol (Allopurinol 300 Mg Tab) 300 mg PO DAILY OFE Stop: 07/16/22 08:59 Last Admin: 06/16/22 10:21 Dose: 300 mg Apixaban (Apixaban 5 Mg Tablet) 5 mg PO BID OFE Stop: 07/19/22 09:44 Last Admin: 06/21/22 21:01 Dose: 5 mg Artificial Tears (Artificial Tears) 1 drops OP Q2HWA OFE Stop: 07/15/22 16:48 Last Admin: 06/22/22 05:20 Dose: 1 drops Aspirin (Aspirin 81 Mg Ectab) 81 mg PO DAILY OFE Stop: 07/16/22 08:59 Last Admin: 06/16/22 10:21 Dose: 81 mg Atorvastatin Calcium (Atorvastatin 10 Mg Tab) 10 mg PO DAILY OFE Stop: 07/16/22 08:59 Last Admin: 06/21/22 09:12 Dose: 10 mg Bupropion HCl (Bupropion Xl 150 Mg Tabcr) 150 mg PO DAILY OFE Stop: 07/16/22 08:59 Dextrose (Dextrose 50% 50 Ml Syringe) 25 - 50 ml IV UD PRN; Protocol PRN Reason: Hypoglycemia Protocol Stop: 07/15/22 15:56 Digoxin (Digoxin 0.125 Mg Tab) 0.125 mg PO DAILY@1600 [facility] Stop: 07/16/22 15:59 Last Admin: 06/21/22 17:00 Dose: 0.125 mg Duloxetine HCl (Duloxetine Hcl 60 Mg Cap) 60 mg PO DAILY OFE Stop: 07/16/22 08:59 Last Admin: 06/16/22 10:21 Dose: 60 mg Erythromycin (Erythromycin Op Oint 5 Mg/Gm 3.5 Gm Tube) 1 appln OPB DAILY OFE Stop: 06/26/22 08:59 Last Admin: 06/21/22 09:13 Dose: 1 appln Furosemide (Furosemide 40 Mg Tab) 40 mg PO QAM OFE Stop: 07/20/22 12:29 Last Admin: 06/21/22 09:12 Dose: 40 mg Gabapentin (Gabapentin 300 Mg Cap) 300 mg PO QID [facility] Stop: 07/15/22 16:59 Last Admin: 06/15/22 20:19 Dose: 300 mg Glucagon (Glucagon For Inj 1 Mg Vial) 1 mg SQ UD PRN; Protocol PRN Reason: Hypoglycemia Protocol Stop: 07/15/22 15:56 Glucose (Glucose 40% Gel 15 Gm Tube) 15 - 30 gm PO UD PRN; Protocol PRN Reason: Hypoglycemia Protocol Stop: 07/15/22 15:56 Glucose (Glucose 10 Tab/Tube) 4 - 8 tab PO UD PRN; Protocol PRN Reason: Hypoglycemia Treatment Stop: 07/15/22 15:56 Guaifenesin (Guaifenesin 600 Mg Tabcr) 600 mg PO Q12 [facility] Stop: 07/18/22 20:59 Last Admin: 06/21/22 20:59 Dose: 600 mg Ampicillin Sodium/Sulbactam Sodium 3,000 mg/ Sodium Chloride 108 mls @ 216 mls/hr IV Q6H [facility]; Protocol Stop: 06/23/22 09:59 Last Infusion: 06/22/22 05:57 Dose: Infused Insulin Aspart (Insulin Aspart Per Unit) 0 units SC ACHS [facility] Stop: 07/17/22 08:44 Last Admin: 06/21/22 20:24 Dose: Not Given Insulin Glargine (Lantus Per Unit Charge) 0 units SQ HS [facility]; Protocol Stop: 07/20/22 20:59 Last Admin: 06/21/22 20:52 Dose: Not Given Ipratropium [place] (Ipratropium [place] Neb Soln 0.02% 2.5 Ml Vial) 0.5 mg INH QIDR PRN PRN Reason: Shortness Of Breath Or Wheezing Stop: 07/16/22 06:59 Levalbuterol HCl (Levalbuterol 1.25mg/0.5ml Neb) 1.25 mg INH QIDR PRN PRN Reason: Shortness Of Breath Or Wheezing Stop: 07/16/22 06:59 Levothyroxine Sodium (Levothyroxine Sodium 125 Mcg Tablet) 250 mcg PO DAILYBB [facility] Stop: 07/16/22 06:29 Last Admin: 06/22/22 05:57 Dose: 250 mcg Loratadine (Loratadine 10 Mg Tab) 20 mg PO DAILY PRN PRN Reason: .allergies Stop: 07/15/22 16:14 Magnesium Hydroxide (Magnesium Hydroxide Susp 30 Ml Udc) 30 ml PO Q12H PRN PRN Reason: Constipation Stop: 07/15/22 15:34 Magnesium Oxide (Magnesium Oxide 400 Mg Tab) 400 mg PO DAILY [facility] Stop: 07/16/22 08:59 Last Admin: 06/21/22 09:12 Dose: 400 mg Metoprolol Succinate (Metoprolol Succ 50mg Ext Rel Tab) 100 mg PO BID [facility] Stop: 07/20/22 20:59 Last Admin: 06/21/22 21:05 Dose: 100 mg Miscellaneous (Carbohydrates For Hypoglycemia ) 15 - 30 gm PO UD PRN PRN Reason: Hypoglycemia Protocol Stop: 07/15/22 15:56 Miscellaneous (Remove Lidoderm Patch) 1 each N/A DAILY@2100 [facility] Stop: 07/15/22 20:59 Last Admin: 06/21/22 21:01 Dose: 1 each Miscellaneous Information (Pharmacy Glycemic Mgmt Consult) 1 each N/A UD PRN PRN Reason: Consult Stop: 07/15/22 15:56 Multivitamins (Multivitamin Tab) 1 tab PO DAILY [facility] Stop: 07/16/22 08:59 Last Admin: 06/21/22 09:12 Dose: 1 tab Nystatin (Nystatin Powder 15gm Btl) 1 appln EXT BID [facility] Stop: 07/15/22 20:59 Last Admin: 06/21/22 21:01 Dose: 1 appln Ondansetron HCl (Ondansetron Inj 2 Mg/Ml 2 Ml Vial) 4 mg IV Q6H PRN PRN Reason: Nausea Stop: 07/15/22 15:34 Oseltamivir Phosphate (Oseltamivir Phosphate 75 Mg Cap) 75 mg PO BID [facility]; Protocol Stop: 06/22/22 12:00 Last Admin: 06/21/22 21:00 Dose: 75 mg Oxycodone HCl (Oxycodone Hcl Ir 5 Mg Tab (Immediate Release)) 5 mg PO Q4H PRN PRN Reason: Moderate to Severe Pain Stop: 07/02/22 11:17 Last Admin: 06/22/22 07:09 Dose: 5 mg Pantoprazole Sodium (Pantoprazole 40 Mg Tab) 40 mg PO DAILY [facility] Stop: 07/16/22 08:59 Last Admin: 06/21/22 09:12 Dose: 40 mg Polyethylene Glycol (Polyethylene (Miralax) 17 Gm Pack) 17 gm PO DAILY [facility] Stop: 07/19/22 13:59 Last Admin: 06/21/22 09:12 Dose: Not Given Potassium Chloride (Potassium Chloride Crtab 20 Meq Tabcr) 20 meq PO DAILY [facility] Stop: 07/16/22 08:59 Last Admin: 06/21/22 09:22 Dose: 20 meq Sennosides (Senna 8.6 Mg Tab) 8.6 mg PO BID [facility] Stop: 07/15/22 20:59 Last Admin: 06/21/22 21:02 Dose: 8.6 mg
[2022-06-22 07:56] LABS: BUN Creatinine Ratio 24.5 (10-20); Creatinine Clr Calc Pharmacy 98.8 ml/min; Est GFR (African American) 90.2 ml/min; Est GFR (Non-African American) 77.8 ml/min; Magnesium 1.8 mg/dl (1.7-2.4); Phosphorus 3.3 mg/dl (2.5-4.9); Potassium 4.3 mmol/L (3.5-5.1)
[2022-06-22] MEDS ORDERED: LANTUS PER UNIT CHARGE SQ ONE ×2 (09:00→21:00)
[2022-06-22] MEDS: FUROSEMIDE 40 MG TAB PO SCH (09:07)
[2022-06-22] MEDS: MAGNESIUM OXIDE 400 MG TAB PO SCH (09:07)
[2022-06-22] MEDS: ATORVASTATIN 10 MG TAB PO SCH (09:07)
[2022-06-22] MEDS: MULTIVITAMIN TAB PO SCH (09:07)
[2022-06-22] MEDS: OSELTAMIVIR PHOSPHATE 75 MG CAP PO SCH (09:07)
[2022-06-22] MEDS: PANTOprazole 40 MG TAB PO SCH (09:07)
[2022-06-22] MEDS: guaiFENesin 600 MG TABCR PO SCH ×2 (09:08→20:22)
[2022-06-22] MEDS: NYSTATIN POWDER 15GM BTL EXT SCH ×2 (09:08→20:24)
[2022-06-22] MEDS: METOPROLOL SUCC 50MG EXT REL TAB PO SCH ×2 (09:08→20:21)
[2022-06-22] MEDS: SENNA 8.6 MG TAB PO SCH ×2 (09:08→20:23)
[2022-06-22] MEDS: ERYTHROMYCIN OP OINT 5 MG/GM 3.5 GM TUBE OPB SCH (09:09)
[2022-06-22] MEDS: POLYETHYLENE (MIRALAX) 17 GM PACK PO SCH (09:10)
[2022-06-22] MEDS: INSULIN ASPART PER UNIT SC SCH ×4 (09:10→20:32)
[2022-06-22] MEDS: POTASSIUM CHLORIDE CRTAB 20 MEQ TABCR PO SCH (09:24)
[2022-06-22] MEDS: APIXABAN 5 MG TABLET PO SCH ×2 (12:18→20:21)
[2022-06-22] MEDS: DIGOXIN 0.125 MG TAB PO SCH (17:47)
[2022-06-22] MEDS: LANTUS PER UNIT CHARGE SQ SCH (20:33)
[2022-06-23] MEDS: oxyCODONE HCL IR 5 MG TAB (IMMEDIATE RELEASE) PO PRN ×2 (00:37→04:53)
[2022-06-23] MEDS: AMPICILLIN/SULBACTAM SOD 3,000 MG in 0.9 % SODIUM CHLORIDE 100 ML IV SCH ×2 (01:02→05:48)
[2022-06-23] MEDS ORDERED: MELATONIN 3 MG TAB PO PRN (01:13)
[2022-06-23] MEDS: LEVOTHYROXINE SODIUM 125 MCG TABLET PO SCH (05:47)
[2022-06-23] MEDS: ARTIFICIAL TEARS OP SCH ×4 (05:53→11:08)
[2022-06-23 07:39] LABS: Hematocrit (blood only) 40.5 % (40.1-51.0); Hemoglobin 12.7 g/dl (14.0-18.0); Mean Corpuscular Hemoglobin 27.4 pg (25.0-34.0); Mean Corpuscular Hgb Conc 31.4 g/dL (32.0-36.0); Mean Corpuscular Volume 87.3 fL (80.0-100.0); Mean Platelet Volume 10.6 fL (9.4-12.4); Platelet Count 177 K/uL (130-400); RDW Coefficient of Variation 14.5 % (11.5-14.5); RDW Standard Deviation 45.2 fL (36.4-46.3); Red Blood Count 4.64 M/uL (4.63-6.08)
[2022-06-23] MEDS: INSULIN ASPART PER UNIT SC SCH (08:06)
[2022-06-23 08:09] LABS: BUN Creatinine Ratio 19.4 (10-20); Calcium 9.2 mg/dl (8.5-10.1); Creatinine Clr Calc Pharmacy 75.1 ml/min; Est GFR (African American) 64.7 ml/min; Est GFR (Non-African American) 55.8 ml/min; Magnesium 1.8 mg/dl (1.7-2.4); Phosphorus 3.6 mg/dl (2.5-4.9); Potassium 4.4 mmol/L (3.5-5.1)
[2022-06-23] MEDS: METOPROLOL SUCC 50MG EXT REL TAB PO SCH (08:10)
[2022-06-23] MEDS: ATORVASTATIN 10 MG TAB PO SCH (08:10)
[2022-06-23] MEDS: PANTOprazole 40 MG TAB PO SCH (08:10)
[2022-06-23] MEDS: APIXABAN 5 MG TABLET PO SCH (08:11)
[2022-06-23] MEDS: guaiFENesin 600 MG TABCR PO SCH (08:11)
[2022-06-23] MEDS: SENNA 8.6 MG TAB PO SCH (08:11)
[2022-06-23] MEDS: MAGNESIUM OXIDE 400 MG TAB PO SCH (08:11)
[2022-06-23] MEDS: FUROSEMIDE 40 MG TAB PO SCH (08:11)
[2022-06-23] MEDS: NYSTATIN POWDER 15GM BTL EXT SCH (08:12)
[2022-06-23] MEDS: allopurinoL 300 MG TAB PO SCH (08:12)
[2022-06-23] MEDS: MULTIVITAMIN TAB PO SCH (08:12)
[2022-06-23] MEDS: POLYETHYLENE (MIRALAX) 17 GM PACK PO SCH (08:12)
[2022-06-23] MEDS: ASPIRIN 81 MG ECTAB PO SCH (08:13)
[2022-06-23] MEDS: DULoxetine HCL 60 MG CAP PO SCH (08:13)
[2022-06-23] MEDS: ERYTHROMYCIN OP OINT 5 MG/GM 3.5 GM TUBE OPB SCH (08:13)
[2022-06-23] MEDS: POTASSIUM CHLORIDE CRTAB 20 MEQ TABCR PO SCH (08:19)
[2022-06-23] MEDS ORDERED: LANTUS PER UNIT CHARGE SQ SCH (09:00)
[2022-06-23] MEDS ORDERED: INSULIN ASPART PER UNIT SC SCH ×2 (11:30)
--- NOTE | 2022-06-23 12:56 | Hospitalist Progress Note ---
Date of Service June 23, 2022 Assessment & Plan (1) Respiratory failure with hypoxia: Plan 72 yo M w/ morbid obesity, HFpEF [TTE F 50 to 60%], SSS status post PPM/PE on anticoagulation, COPD/ILD, SALAS on CPAP, DM 2 on insulin, hypothyroidism, CKD [baseline 1.5-2], chronic anemia presented to ED 06/15 from [facility] NF d/t being lethargic and SPO2 85 to 88 % on RA. Patient was found to have flu A at ED, CXR with concern of mild pulmonary edema at presentation. He is being managed for the following: Acute hypoxic respiratory failure: Likely secondary to influenza and acute on chronic diastolic heart failure Acute on chronic diastolic heart failure Sepsis POA 2/2 viral infection & Influenza : Respiratory rate and temperature elevated at presentation. Possible superimposed bacterial infection Acute metabolic encephalopathy Patient was admitted due to concern of hypoxia and encephalopathy at [facility] on the day of arrival. Admitting WBC and Pro-Sreedhar WNL, admitting BNP 340/elevated from prior. Admitting temperature of 39.2C Admitting CXR with mild pulmonary edema. 12/28/2021 echo: EF 55 to 60%, study was technically difficult. 06/16 CT Chest: 1. Patchy bilateral perihilar airspace opacities with areas of dense consolidation within the bilateral lower lobes. This favors a pneumonia and could be due to aspiration. 2. There is also mild interlobular septal thickening. This raises the possibility of superimposed mild pulmonary edema. 3. Interval progression of the extensive mediastinal and bilateral hilar lymphadenopathy. The bilateral hilar lymph nodes result in mild to moderate narrowing of the central airways. This could be reactive to the suspected pneumonia. However, a neoplastic process remains the diagnosis of exclusion. Follow-up recommended to ensure stability/resolution. Consider follow-up pulmonary consultation. 4. Trace bilateral pleural effusions. 5. Additional findings as described above. Encephalopathy secondary to acute illness and hypoxia --> Resolved Acute on chronic diastolic failure, cardiology consulted - gentle diuresis - monitor renal function, Valentine, I's and O's. --> Resolved c/w BiPAP, close hemodynamic monitoring, continued with Zosyn started 06/16, -> switched to Unasyn 06/18, stopped doxycycline, follow 08/16 blood culture --[id number]. Unasyn now stopped - finished course. Continued Tamiflu -finished course. Pulmonary medicine follow up as Outpatient. Nocturnal hypoxia -patient had nocturnal study done, and qualifies for supplemental oxygen at night. Recommend to have sleep study done as outpatient. Acute kidney injury: resolved CTAP w/ no hydronephrosis, monitor labs, avoid nephrotoxins - cautious diuresis -> now switched to home PO lasix dose H/O A. fib and pacemaker placement: Eliquis resumed, heparin infusion stopped Afib w/ RVR,cardiology following- cont. digoxin, metoprolol tartrate switched to succinate 100 mg BID Afib now rate controlled Other chronic medical conditions: Resume meds as able. Admission and Anticipated Discharge Date Admission Date: June 15, 2022 Subjective Patient seen in follow-up of acute hypoxic respiratory failure and encephalopathy secondary to influenza A, Afib w/ RVR, acute on chronic diastolic heart failure, acute kidney injury. Currently pt is sitting up in bed, in no acute distress, breathing comfortably on room air. Seen walking in hallway w/ a walker. Denies any acute events overnight No chest pain , palpitations, shortness of breath Nocturnal study done overnight Review of Systems Review of Systems: All systems reviewed & are unremarkable except as noted in Subjective Physical Exam Physical Exam: GENERAL: Alert and oriented, in NAD. on RA. Obese cla ss III. HEENT:EOM I. Pupils equal, r ound and reactive to light. Oral mu cosa moist. NECK: thick and short H EART: S1 and S2 h eard. irregular. No murmur, no gall op. RESPIRATORY: Normal AP diameter . No accessory mu scle use. No whee zing, no crackles noted ABDOMEN: So ft, bowel sounds p resent, nontender, no distention. NE URO: No facial dr oop. Speech is cl ear. Answers appr opriately. Moves e xtremities. EXTREM ITIES:1+ ble marco a, chronic skin ch anges ble Results & Data Results & Data ([facility]) Vital Signs (Past 12 Hours) Vital Signs Temp Pulse Pulse Resp BP Pulse Ox Pulse Ox 06/23/22 09:58 06/23/22 08:08 36.4 C L 76 16 152/92 H 96 06/23/22 04:27 36.6 C 74 20 120/67 96 06/23/22 03:46 74 94 O2 Del Method O2 Del Method 06/23/22 09:58 Room Air 06/23/22 08:08 Room Air 06/23/22 04:27 Room Air 06/23/22 03:46 Room Air Laboratory Results 06/23/22 06/23/22 06/23/22 Range/Units 11:45 07:52 07:17 WBC 7.70 (4.8-10.8) K/ul RBC 4.64 (4.63-6.08) M/uL Hgb 12.7 L (14.0-18.0) g/dl Hct 40.5 (40.1-51.0) % MCV 87.3 (80.0-100.0) fL MCH 27.4 (25.0-34.0) pg MCHC 31.4 L (32.0-36.0) g/dL RDW Std Deviation 45.2 (36.4-46.3) fL RDW Coeff of Baldo 14.5 (11.5-14.5) % Plt Count 177 (130-400) K/uL MPV 10.6 (9.4-12.4) fL Sodium (136-145) mmol/L Potassium (3.5-5.1) mmol/L Chloride (98-107) mmol/L Carbon Dioxide (21-32) mmol/L Anion Gap (3-11) BUN (6-23) mg/dl Creatinine (0.6-1.4) mg/dl Est Cr Clr Drug Dosing ml/min Est GFR ( Amer) ml/min Est GFR (Non-Af Amer) ml/min BUN/Creatinine Ratio (10-20) Glucose (70-99(Fasting)) mg/dl POC Glucose 240 H 175 H (70-99) mg/dl Calcium (8.5-10.1) mg/dl Phosphorus (2.5-4.9) mg/dl Magnesium (1.7-2.4) mg/dl 06/23/22 06/23/22 06/22/22 Range/Units 07:17 01:01 20:27 WBC (4.8-10.8) K/ul RBC (4.63-6.08) M/uL Hgb (14.0-18.0) g/dl Hct (40.1-51.0) % MCV (80.0-100.0) fL MCH (25.0-34.0) pg MCHC (32.0-36.0) g/dL RDW Std Deviation (36.4-46.3) fL RDW Coeff of Baldo (11.5-14.5) % Plt Count (130-400) K/uL MPV (9.4-12.4) fL Sodium 137 (136-145) mmol/L Potassium 4.4 (3.5-5.1) mmol/L Chloride 103 (98-107) mmol/L Carbon Dioxide 29 (21-32) mmol/L Anion Gap 5 (3-11) BUN 25 H (6-23) mg/dl Creatinine 1.29 D (0.6-1.4) mg/dl Est Cr Clr Drug Dosing 75.1 ml/min Est GFR ( Amer) 64.7 ml/min Est GFR (Non-Af Amer) 55.8 ml/min BUN/Creatinine Ratio 19.4 (10-20) Glucose 191 H (70-99(Fasting)) mg/dl POC Glucose 140 H 75 (70-99) mg/dl Calcium 9.2 (8.5-10.1) mg/dl Phosphorus 3.6 (2.5-4.9) mg/dl Magnesium 1.8 (1.7-2.4) mg/dl 06/22/22 Range/Units 16:05 WBC (4.8-10.8) K/ul RBC (4.63-6.08) M/uL Hgb (14.0-18.0) g/dl Hct (40.1-51.0) % MCV (80.0-100.0) fL MCH (25.0-34.0) pg MCHC (32.0-36.0) g/dL RDW Std Deviation (36.4-46.3) fL RDW Coeff of Baldo (11.5-14.5) % Plt Count (130-400) K/uL MPV (9.4-12.4) fL Sodium (136-145) mmol/L Potassium (3.5-5.1) mmol/L Chloride (98-107) mmol/L Carbon Dioxide (21-32) mmol/L Anion Gap (3-11) BUN (6-23) mg/dl Creatinine (0.6-1.4) mg/dl Est Cr Clr Drug Dosing ml/min Est GFR ( Amer) ml/min Est GFR (Non-Af Amer) ml/min BUN/Creatinine Ratio (10-20) Glucose (70-99(Fasting)) mg/dl POC Glucose 118 H (70-99) mg/dl Calcium (8.5-10.1) mg/dl Phosphorus (2.5-4.9) mg/dl Magnesium (1.7-2.4) mg/dl Medications Administered Current Inpatient Medications Acetaminophen (Acetaminophen 325 Mg Tab) 650 mg PO Q4H PRN PRN Reason: Mild Pain or Fever Stop: 07/15/22 15:34 Last Admin: 06/22/22 21:58 Dose: 650 mg Al Hydrox/Mg Hydrox/Simethicone (Aluminum/Magnesium Susp 30 Ml Udc) 15 ml PO Q4H PRN PRN Reason: Dyspepsia Stop: 07/15/22 15:34 Allopurinol (Allopurinol 300 Mg Tab) 300 mg PO DAILY [facility]E Stop: 07/16/22 08:59 Last Admin: 06/23/22 08:12 Dose: 300 mg Apixaban (Apixaban 5 Mg Tablet) 5 mg PO BID [facility] Stop: 07/19/22 09:44 Last Admin: 06/23/22 08:11 Dose: 5 mg Artificial Tears (Artificial Tears) 1 drops OP Q2HWA [facility] Stop: 07/15/22 16:48 Last Admin: 06/23/22 11:08 Dose: 1 drops Aspirin (Aspirin 81 Mg Ectab) 81 mg PO DAILY [facility] Stop: 07/16/22 08:59 Last Admin: 06/23/22 08:13 Dose: 81 mg Atorvastatin Calcium (Atorvastatin 10 Mg Tab) 10 mg PO DAILY [facility] Stop: 07/16/22 08:59 Last Admin: 06/23/22 08:10 Dose: 10 mg Bupropion HCl (Bupropion Xl 150 Mg Tabcr) 150 mg PO DAILY [facility] Stop: 07/16/22 08:59 Dextrose (Dextrose 50% 50 Ml Syringe) 25 - 50 ml IV UD PRN; Protocol PRN Reason: Hypoglycemia Protocol Stop: 07/15/22 15:56 Digoxin (Digoxin 0.125 Mg Tab) 0.125 mg PO DAILY@1600 [facility] Stop: 07/16/22 15:59 Last Admin: 06/22/22 17:47 Dose: 0.125 mg Duloxetine HCl (Duloxetine Hcl 60 Mg Cap) 60 mg PO DAILY [facility] Stop: 07/16/22 08:59 Last Admin: 06/23/22 08:13 Dose: 60 mg Erythromycin (Erythromycin Op Oint 5 Mg/Gm 3.5 Gm Tube) 1 appln OPB DAILY [facility] Stop: 06/26/22 08:59 Last Admin: 06/23/22 08:13 Dose: 1 appln Furosemide (Furosemide 40 Mg Tab) 40 mg PO QAM [facility] Stop: 07/20/22 12:29 Last Admin: 06/23/22 08:11 Dose: 40 mg Gabapentin (Gabapentin 300 Mg Cap) 300 mg PO QID [facility] Stop: 07/15/22 16:59 Last Admin: 06/15/22 20:19 Dose: 300 mg Glucagon (Glucagon For Inj 1 Mg Vial) 1 mg SQ UD PRN; Protocol PRN Reason: Hypoglycemia Protocol Stop: 07/15/22 15:56 Glucose (Glucose 40% Gel 15 Gm Tube) 15 - 30 gm PO UD PRN; Protocol PRN Reason: Hypoglycemia Protocol Stop: 07/15/22 15:56 Glucose (Glucose 10 Tab/Tube) 4 - 8 tab PO UD PRN; Protocol PRN Reason: Hypoglycemia Treatment Stop: 07/15/22 15:56 Guaifenesin (Guaifenesin 600 Mg Tabcr) 600 mg PO Q12 [facility] Stop: 07/18/22 20:59 Last Admin: 06/23/22 08:11 Dose: 600 mg Insulin Aspart (Insulin Aspart Per Unit) 0 units SC DAILY@1130,1630,2100 [facility] Stop: 07/23/22 11:29 Last Admin: 06/23/22 12:12 Dose: 22 units Insulin Aspart (Insulin Aspart Per Unit) 0 units SC DAILY@0730 [facility] Stop: 07/24/22 07:29 Insulin Glargine (Lantus Per Unit Charge) 0 units SQ HS [facility]; Protocol Stop: 07/20/22 20:59 Last Admin: 06/22/22 20:33 Dose: Not Given Insulin Glargine (Lantus Per Unit Charge) 70 units SQ DAILY [facility] Stop: 07/23/22 08:59 Last Admin: 06/23/22 08:06 Dose: 70 units Ipratropium [place] (Ipratropium [place] Neb Soln 0.02% 2.5 Ml Vial) 0.5 mg INH QIDR PRN PRN Reason: Shortness Of Breath Or Wheezing Stop: 07/16/22 06:59 Levalbuterol HCl (Levalbuterol 1.25mg/0.5ml Neb) 1.25 mg INH QIDR PRN PRN Reason: Shortness Of Breath Or Wheezing Stop: 07/16/22 06:59 Levothyroxine Sodium (Levothyroxine Sodium 125 Mcg Tablet) 250 mcg PO DAILYBB [facility] Stop: 07/16/22 06:29 Last Admin: 06/23/22 05:47 Dose: 250 mcg Loratadine (Loratadine 10 Mg Tab) 20 mg PO DAILY PRN PRN Reason: .allergies Stop: 07/15/22 16:14 Magnesium Hydroxide (Magnesium Hydroxide Susp 30 Ml Udc) 30 ml PO Q12H PRN PRN Reason: Constipation Stop: 07/15/22 15:34 Magnesium Oxide (Magnesium Oxide 400 Mg Tab) 400 mg PO DAILY [facility] Stop: 07/16/22 08:59 Last Admin: 06/23/22 08:11 Dose: 400 mg Melatonin (Melatonin 3 Mg Tab) 3 mg PO HS PRN PRN Reason: Sleep Stop: 07/23/22 01:12 Last Admin: 06/23/22 01:49 Dose: 3 mg Metoprolol Succinate (Metoprolol Succ 50mg Ext Rel Tab) 100 mg PO BID [facility] Stop: 07/20/22 20:59 Last Admin: 06/23/22 08:10 Dose: 100 mg Miscellaneous (Carbohydrates For Hypoglycemia ) 15 - 30 gm PO UD PRN PRN Reason: Hypoglycemia Protocol Stop: 07/15/22 15:56 Miscellaneous (Remove Lidoderm Patch) 1 each N/A DAILY@2100 [facility] Stop: 07/15/22 20:59 Last Admin: 06/22/22 20:23 Dose: Not Given Miscellaneous Information (Pharmacy Glycemic Mgmt Consult) 1 each N/A UD PRN PRN Reason: Consult Stop: 07/15/22 15:56 Multivitamins (Multivitamin Tab) 1 tab PO DAILY [facility] Stop: 07/16/22 08:59 Last Admin: 06/23/22 08:12 Dose: 1 tab Nystatin (Nystatin Powder 15gm Btl) 1 appln EXT BID [facility] Stop: 07/15/22 20:59 Last Admin: 06/23/22 08:12 Dose: 1 appln Ondansetron HCl (Ondansetron Inj 2 Mg/Ml 2 Ml Vial) 4 mg IV Q6H PRN PRN Reason: Nausea Stop: 07/15/22 15:34 Oxycodone HCl (Oxycodone Hcl Ir 5 Mg Tab (Immediate Release)) 5 mg PO Q4H PRN PRN Reason: Moderate to Severe Pain Stop: 07/02/22 11:17 Last Admin: 06/23/22 04:53 Dose: 5 mg Pantoprazole Sodium (Pantoprazole 40 Mg Tab) 40 mg PO DAILY [facility] Stop: 07/16/22 08:59 Last Admin: 06/23/22 08:10 Dose: 40 mg Polyethylene Glycol (Polyethylene (Miralax) 17 Gm Pack) 17 gm PO DAILY OFE Stop: 07/19/22 13:59 Last Admin: 06/23/22 08:12 Dose: 17 gm Potassium Chloride (Potassium Chloride Crtab 20 Meq Tabcr) 20 meq PO DAILY OFE Stop: 07/16/22 08:59 Last Admin: 06/23/22 08:19 Dose: 20 meq Sennosides (Senna 8.6 Mg Tab) 8.6 mg PO BID OFE Stop: 07/15/22 20:59 Last Admin: 06/23/22 08:11 Dose: 8.6 mg
--- NOTE | 2022-06-23 13:14 | Discharge Summary ---
Date of Service June 23, 2022 Admission HPI Per Admitting Provider Mr. Marcial Andujar is a 72-year-old male that presented to the [facility] ED via EMS from the [facility] after staff stated the patient was unarousable and lethargic this morning. SPO2 was 85 to 88% on room air. . Patient does not wear oxygen at baseline. EMS gave the patient 250 normal saline bolus in route. Per [facility] and with follow-up testing in the ED patient has been positive for influenza A since June 11. Per record review he has been vaccinated for influenza and received a COVID booster in 05/03. This patient was recently admitted December 28 through December 31 with ambulatory dysfunction and generalized weakness. Additional past medical history includes SALAS(not on CPAP), history of PE, hypertension, DM type II, CKD IV, chronic diastolic CHF, cardiomyopathy, hypothyroidism, atrial fibrillation (on Eliquis). Patient does follow with Jcarlos Haider PA-C. Most recent echo was December 2021 EF 55 to 60%. In the ED chest x-ray shows some congestive heart failure progression. Procalcitonin negative troponin negative, lactate 1.6. UA negative. VBG appears compensated. Patient was placed on oxime mask currently 6 L with SPO2 92% and patient is febrile T39.2. Patient fever responded to Motrin. When I met with the patient he had just walked back to his bed from the bathroom. He was awake alert oriented x4 however tired, but able to answer most questions appropriately from an orientation standpoint. He was able to state that over the last 2 days he has felt more weak and has not been eating or drinking as well as usual. He also reported feeling wheezy with his respirations. Patient reports not taking his medications this morning. Patient will be admitted for further evaluation and management. Please see A/P for further details. Admission Exam Per Admitting Provider Neuro: AAOx4, lethargic, but arrousable and able to interact and answer questions in a meaningful way. PERRLA, no aphagia, memory changes, CNII-XII grossly intact HEENT: head normocephalic, moist mucus membranes CV: S1/S2, (-) M/G/R, (-) edema, cap refill < 3 seconds Resp: Lungs decreased with anterior respiratory coarseness. GI: Abdomen S/NT/ND, Ax4 bowel sounds, (-) CVA tenderness Musculoskeletal: 5/5 B/L UE strength, 5/5 B/L LE strength. No gait disturbance Skin: (-) rashes , (-) erythema. Psych: euthymic mood Principal Diagnosis Acute hypoxic respiratory failure Influenza A infection Acute on chronic diastolic heart failure Sepsis POA 2/2 viral infection & Influenza Possible superimposed bacterial infection Acute metabolic encephalopathy ALMA ROSA Afib w/ RVR Discharge Exam GENERAL: Alert and oriented, in NAD.on RA. Obese class III. HEENT:EOMI. Pupils equal, round and reactive to light. Oral mucosa moist. NECK: thick and short HEART: S1 and S2 heard. irregular.No murmur, no gallop. RESPIRATORY: Normal AP diameter. No accessory muscle use. No wheezing, no crackles noted ABDOMEN: Soft, bowel sounds present, nontender, no distention. NEURO: No facial droop. Speech is clear. Answers appropriately. Moves extremities. EXTREMITIES:1+ ble edema, chronic skin changes ble Discharge Data Allergies Allergy/AdvReac Type Severity Reaction Status Date / Time No Known Allergies Allergy Verified 06/15/22 15:07 Consultations 06/15/22 14:22 ED Decision to Admit Stat 06/16/22 10:16 Consult Cardiology Routine 06/16/22 12:26 Consult Pulmonology Routine Ordered Studies 06/16/22 04:43 CT head/brain wo con Urgent FINDINGS: This study is mildly compromised by motion artifact. No acute intracranial hemorrhage, midline shift or mass effect is present. The ventricular system is unremarkable. The basal cisterns are patent. No extra- axial collections are present. There are no findings to suggest acute dural sinus thrombosis or acute territorial infarct. No significant calvarial abnormalities are present. Visualized portions of the sinuses and mastoid air cells are clear. IMPRESSION: No acute intracranial findings. Exam mildly compromised by motion artifact. 06/16/22 13:20 CT Abd and Pelvis [CT abd pelvis wo con] Urgent FINDINGS: Lower chest: For findings above the diaphragm, please see CT chest performed same day. Liver: Unremarkable. No focal lesions are seen. Gallbladder and biliary tree: A gallbladder remnant is suggested. No intra- or extrahepatic biliary ductal dilation. Pancreas: The pancreas is atrophic. Spleen: Unremarkable. Adrenals: Unremarkable. Kidneys and ureters: Perinephric stranding is noted bilaterally. Bladder: Valentine catheter is seen. Reproductive organs: Unremarkable. Bowel: Unremarkable appearance of the bowel. The appendix is normal. Lymph nodes Retroperitoneal: Subcentimeter tiffany hepatis nodes are noted. Pelvic: Unremarkable. Mesenteric: Unremarkable. Peritoneum: Normal. Vessels: Atherosclerotic calcifications are seen. Abdominal wall: Postsurgical changes are seen in the midline abdomen, there is diastases of the abdominal musculature. Bones: Degenerative changes in the visualized spine. IMPRESSION: 1. No acute intra-abdominal abnormality is seen, in particular no evidence of hydronephrosis in this patient with renal failure. The appendix is normal. 2. Please see CT chest for findings above the diaphragm. CT chest diagnostic wo con Urgent IMPRESSION: 1. Patchy bilateral perihilar airspace opacities with areas of dense consolidation within the bilateral lower lobes. This favors a pneumonia and could be due to aspiration. 2. There is also mild interlobular septal thickening. This raises the possibility of superimposed mild pulmonary edema. 3. Interval progression of the extensive mediastinal and bilateral hilar lymphadenopathy. The bilateral hilar lymph nodes result in mild to moderate narrowing of the central airways. This could be reactive to the suspected pneumonia. However, a neoplastic process remains the diagnosis of exclusion. Follow-up recommended to ensure stability/resolution. Consider follow-up pulmonary consultation. 4. Trace bilateral pleural effusions. 5. Additional findings as described above. Hospital Course (1) Respiratory failure with hypoxia: Plan 72 yo M w/ morbid obesity, HFpEF [TTE 2021EF 50 to 60%], SSS status post PPM/PE on anticoagulation, COPD/ILD, SALAS on CPAP, DM 2 on insulin, hypothyroidism, CKD [baseline 1.5-2], chronic anemia presented to ED 06/15 from [facility] NF d/t being lethargic and SPO2 85 to 88 % on RA. Patient was found to have flu A at ED, CXR with concern of mild pulmonary edema at presentation. He is being managed for the following: Acute hypoxic respiratory failure: Likely secondary to influenza and acute on chronic diastolic heart failure Acute on chronic diastolic heart failure Sepsis POA 2/2 viral infection & Influenza : Respiratory rate and temperature e levated at presentation. Possible superimposed bacterial infection Acute metabolic encephalopathy Patient was admitted due to concern of hypoxia and encephalopathy at [facility] on the day of arrival. Admitting WBC and Pro-Sreedhar WNL, admitting BNP 340/elevated from prior. Admitting temperature of 39.2C Admitting CXR with mild pulmonary edema. 12/28/2021 echo: EF 55 to 60%, study was technically difficult. 06/16 CT Chest: 1. Patchy bilateral perihilar airspace opacities with areas of dense consolidation within the bilateral lower lobes. This favors a pneumonia and could be due to aspiration. 2. There is also mild interlobular septal thickening. This raises the possibility of superimposed mild pulmonary edema. 3. Interval progression of the extensive mediastinal and bilateral hilar lymphadenopathy. The bilateral hilar lymph nodes result in mild to moderate narrowing of the central airways. This could be reactive to the suspected pneumonia. However, a neoplastic process remains the diagnosis of exclusion. Follow-up recommended to ensure stability/resolution. Consider follow-up pulmonary consultation. 4. Trace bilateral pleural effusions. 5. Additional findings as described above. Encephalopathy secondary to acute illness and hypoxia --> Resolved Acute on chronic diastolic failure, cardiology consulted - gentle diuresis - monitor renal function, Valentine, I's and O's. --> Resolved c/w BiPAP, close hemodynamic monitoring, continued with Zosyn started 06/16, -> switched to Unasyn 06/18, stopped doxycycline, follow 08/16 blood culture --[id number]. Unasyn now stopped - finished course. Continued Tamiflu -finished course. Pulmonary medicine follow up as Outpatient. Nocturnal hypoxia -patient had nocturnal study done, and qualifies for supplemental oxygen at night. Recommend to have sleep study done as outpatient. Acute kidney injury: resolved CTAP w/ no hydronephrosis, monitor labs, avoid nephrotoxins - cautious diuresis -> now switched to home PO lasix dose H/O A. fib and pacemaker placement: Eliquis resumed, heparin infusion stopped Afib w/ RVR,cardiology following- cont. digoxin, metoprolol tartrate switched to succinate 100 mg BID Afib now rate controlled Other chronic medical conditions: Resume meds as able. Total Time Total Time Spent Total Time Spent (In Minutes): 40 Discharge Plan Discharge Items Patient Disposition: Personal Retirement Reason For Visit: LETHARGY Discharge Diagnosis: Acute hypoxic respiratory failure Influenza A infection Acute on chronic diastolic heart failure Sepsis POA 2/2 viral infection & Influenza Possible superimposed bacterial infection Acute metabolic encephalopathy ALMA ROSA Afib w/ RVR Activity: Per Instructions section Non-emergency contact: Primary Care Provider and Volunteer Recruiter Call non-emergency contact if: you have any medication questions and your symptoms worsen Follow-up/Referrals: [facility] [Primary Care Provider] - Diet: Carb Consistent or DM2 and Heart Healthy Diet Texture: Easy to Chew Addtl Attending Provider Instructions: Follow-up with your primary care doctor, production helper, and denitrator operator. Take metoprolol succinate 100 mg twice a day. Take furosemide 40 mg daily. Make sure to follow-up with your healthcare providers to adjust your medication dose. Make sure you use supplemental oxygen at night when you sleep, and it is recommended that you have sleep study done as outpatient. Monitor your weight daily, if you have any change in your weight/possible increased edema, you should contact your healthcare providers to discuss further. [employer] Solution Architect Provider Instructions: Call your Primary Care doctor if any of the following symptoms or problems start or get worse: * Shortness of breath or difficulty breathing * Wake up at night short of breath * Chest pain * Cough * Swelling of your hands, feet, or legs * More fatigued or tired with your normal activity * Palpitations - sudden fast heart beats WEIGHT * Weigh yourself every morning after using the bathroom. * Use the same scale. * Wear the same amount of clothing. * Write your weight down on a chart. * Call your Primary Care doctor if you gain more than 2-3 pounds in 1-2 days. MEDICATIONS * Use this discharge instruction sheet for medication instructions. * Take your medications at the time your doctor ordered. * Do not skip a dose of your medicines. * If you miss a dose of medicine, take it as soon as possible, but DO NOT DOUBLE A DOSE. * Read your medicine information when you get home. * Know all of the side effects of your medicine. If in doubt, ask your pharmacist * Call your Primary Care doctor's office if you have any side effects. * Be sure all of your doctors know what medicine and herbs you take (including cold, flu, and herbal medicine). Take the following with you to your follow-up doctor appointments: * Weight Chart * Medication List * List of questions Do not drink excessive alcohol, beer or wine. Pending Studies at Discharge: No Stand-Alone Forms: My [place] [employer], Smoking Cessation Skilled Items Patient informed of condition?: Yes DNR: No Discharge Level of Care: Other Communicable Disease: No Discharge Prognosis: Stable Lines: None Urinary Catheter: No Medications and DC Order Prescriptions: New metoprolol succinate 50 mg Tablet Extended Release 24 Hr 100 mg PO BID Qty: 60 0RF furosemide 40 mg Tablet 40 mg PO QAM Qty: 30 0RF Continued Vancomycin Fortified 10mg/Ml 1 drp OPB QID Rx Instructions: KEEP REFRIGERATED sennosides [senna] 8.6 mg Tablet 8.6 mg PO BID acetaminophen [Tylenol] 325 mg Tablet 650 mg PO Q4 PRN (Reason: Fever Or Pain) magnesium oxide 420 mg Tablet 420 mg PO DAILY aspirin [Aspir-Low] 81 mg Tablet,Delayed Release (Dr/Ec) 81 mg PO DAILY potassium chloride 20 mEq tablet,ER particles/crystals 20 meq PO DAILY erythromycin 5 mg/gram (0.5 %) ointment 1 applic OPB DIRECTED Rx Instructions: 1/2 inch ribbon to both lower eye lids. Frequency was not noted. levothyroxine 125 mcg Tablet 250 mcg PO DAILY Rx Instructions: [facility] to give 1, 125 mcg tab daily. lidocaine 5 % Adhesive Patch,Medicated 1 patch TOPICAL DAILY Rx Instructions: leave on most painful area for up to 12 hrs, then take off nitroglycerin [Nitrostat] 0.4 mg Tablet, Sublingual 0.4 mg sublingual DIRECTED PRN (Reason: Chest Pain) digoxin 125 mcg (0.125 mg) Tablet 125 mcg PO DAILY Rx Instructions: 1800 nystatin 100,000 unit/gram Powder 1 applic TOPICAL BID epinephrine [Epi E-Z Pen] 0.3 mg/0.3 mL Auto-Injector 0.3 mg IM DIRECTED PRN (Reason: Allergic Reaction) albuterol sulfate 90 mcg/actuation Hfa Aerosol Inhaler 2 puff INHALATION Q4 PRN (Reason: Shortness Of Breath Or Wheezing) Naphcon-A 0.025-0.3 % Drops 2 drp OPHTHALMIC (EYE) Q6 PRN (Reason: ..) loratadine 10 mg Tablet 20 mg PO DAILY PRN (Reason: .allergies) Refresh Classic (PF) 1.4-0.6 % Dropperette 1 drp OPB DIRECTED Rx Instructions: q2hrs while awake duloxetine 60 mg capsule,delayed release(DR/EC) 60 mg PO DAILY cholecalciferol (vitamin D3) [Vitamin D3] 25 mcg (1,000 unit) Tablet 50 mcg PO DAILY apixaban 5 mg Tablet 5 mg PO Q12 Glargine, Human 100units/Ml 100 unit SC QAM Glargine,Human 100units/Ml 55 unit SC HS atorvastatin 10 mg tablet 10 mg PO DAILY metoprolol succinate 100 mg tablet extended release 24 hr 150 mg PO BID Novolin R Regular U-100 Insuln 100 unit/mL solution 12 unit subcut ACHS gabapentin 300 mg capsule 300 mg PO QID omeprazole 20 mg capsule,delayed release(DR/EC) 20 mg PO DAILY allopurinol 300 mg tablet 300 mg PO DAILY bupropion HCl 150 mg tablet extended release 24 hr 150 mg PO DAILY multivitamin Tablet 1 tab PO DAILY Discontinued metolazone 2.5 mg Tablet 2.5 mg PO DAILY PRN (Reason: .weight gain of 3 lbs/24 hrs) furosemide 80 mg tablet 40 mg PO DAILY Discharge Orders: Discharge Order (Routine); Ordered 06/23/22 Ordered By: Mitch Acevedo Admission Data Admit Date/Time: 06/15/22 14:32 Attending Provider: Mitch Acevedo Admit Provider: [facility] Sunshine Primary Care Provider: Hernan Khan,[facility], [facility] Other Providers: [facility] ; [facility] Sunshine ; Chava Stephenson ; Star Clark
[2022-06-24] MEDS ORDERED: INSULIN ASPART PER UNIT SC SCH (07:30)
== END 2022-06-23 13:57 | disposition home or self-care (01) | DRG 871 ==
LOC: ED 11:51 → SUATTDRO 14:32 → 4W 14:32 → 1E 06-16 13:00 → 2S 06-19 02:47 → 2N 06-22 18:51

== ENCOUNTER 2022-07-29 08:14 | Inpatient (IN) ==
--- NOTE | 2022-07-29 08:38 | Emergency Department Note ---
Impression & Plan Respiratory failure with hypoxia, Acute on chronic diastolic CHF (congestive heart failure), Weakness ED Provider Note NAME: CECILE KENDALL AGE: 72 SEX: M : 1950 ARRIVES VIA: Ambulance INFORMANT: Patient, EMS sheet ED PROVIDER(S): Pedro Klein DO CHIEF COMPLAINT: Weakness, shortness of breath, headache HPI: Patient is a 72-year-old male with a past medical history of respiratory failure, CHF, diabetes and CKD who presents the ER for weakness as well as shortness of breath. He is from [facility]. He was found to be hypoxic at 87% on room air. Normally only wears oxygen at night. Admits to right-sided headache which is worse on palpation. No change in vision. No chest pain. Does admit to cough, congestion, and runny nose but notes this has been there for some time. No belly pain, nausea, vomiting, or diarrhea. No dysuria, urgency, or frequency. No other exacerbating or remitting factors. PAST MEDICAL HISTORY:See Below PAST SURGICAL HISTORY:See Below FAMILY HISTORY:See Below SOCIAL HISTORY:See Below HOME MEDICATIONS:See Below ALLERGIES:See Below VITALS:See Below PHYSICAL EXAMINATION: GENERAL: Sitting up in bed, alert, morbidly obese on oxygen EYE EXAM: normal conjunctiva. PERRL and EOM's grossly intact. OROPHARYNX: mucous membranes are dry LUNGS: Diminished bilaterally. Normal chest wall mechanics HEART: no murmurs, S1 normal and S2 normal ABDOMEN: abdomen soft, non-tender, normo-active bowel sounds, no masses, no rebound or guarding. UPPER EXTREMITIES: upper extremities are grossly normal. LOWER EXTREMITIES: Pitting edema in the lower extremities NEURO EXAM: Normal sensorium, cranial nerves II-XII grossly intact, normal speech, no gross weakness of arms, no gross weakness of legs. MEDICAL DECISION MAKING: Patient is a 72-year-old male who presents ER for weakness as well as right- sided headache. Upon arrival he is found to be hypoxic and placed on 3 L nasal cannula. Normally only wears oxygen at night. IV was established blood work was obtained. Labs show no significant leukocytosis. Mild anemia 11.8. BMP with a glucose of 312. He was given IV insulin this trended down to 258. LFTs were unremarkable. Troponin was negative. BNP was elevated at 200. Pitting edema in the lower extremities and chest x-ray per my read suggestive of CHF. He was given IV Lasix with potassium in the fours. Influenza COVID and RSV was negative. Patient was updated at bedside. Remained on nasal cannula. Nga d with the hospitalist Dr. Mary oliva for further evaluation presentation treatment and further work-up. External records were reviewed. Triage Nursing notes reviewed. Limited review of prior medical records performed Vital Signs: reviewed and remarkable for hypoxic Differential diagnosis: Differential diagnoses includes but is not limited to pneumonia, bronchitis, COPD/Asthma exacerbation, pneumothorax, pulmonary embolism, congestive heart failure, acute coronary syndrome ER treatment provided: See below Diagnostics interpreted by me include EKG and cardiac monitoring as listed below: -Cardiac Monitoring: An order was placed for continuous cardiac monitoring. The monitor shows a rate of 92 with paced rhythm. -ECG: Atrial paced rate of 96 QTC 453 -Laboratory studies:Interpreted by me as stated above in MDM and shown below. Imaging studies: Xrays: As interpreted by me: Portable AP upright 1 view of the chest shows no focal infiltrate but suggestive CHF CTs show: CT head was negative Consultation(s): Discussed the patient's presentation work-up and treatment with Mary oliva Procedures:none Critical Care: I have personally spent 31 minutes of critical care time in the direct management of this patient. This includes bedside care, interpretation of diagnostic studies, and testing, discussion with consultants, patient, and family members, and other required patient management activities. This 31 mi nutes is in excess of all separately billable procedures. Past Med/Surg History Medical History Arthritis Atrial flutter Bifascicular block CAD (coronary artery disease) Cardiac pacemaker in situ Cardiomyopathy Chronic anticoagulation Chronic diastolic CHF (congestive heart failure) Chronic venous insufficiency CKD (chronic kidney disease) stage 3, GFR 30-59 ml/min Claustrophobia Closed fracture of thyroid cartilage COPD, moderate COVID-19 Depression Diabetes mellitus, type 2 insulin pump Entropion of left lower eyelid Fatty liver Gout Hyperlipidemia Hypertension Hypothyroidism Iatrogenic pulmonary embolism Interstitial lung disease Morbid obesity MRSA infection Nephrolithiasis Nocturnal hypoxemia SALAS (obstructive sleep apnea) Osteoarthritis Paroxysmal atrial fibrillation Prolonged QT interval Pulmonary embolism B/L- 5+ years ago Sarcoidosis possible- evaluated by pulmonary; felt no active sarcoidosis and would not merit steroid therapy given weight/diabetic state. Sleep apnea CPAP Solitary pulmonary nodule Tachy-sherry syndrome Tachycardia induced cardiomyopathy "prior EF of 25% while in aflutter, subsequently normal in NSR" Surgical History H/O cardiac radiofrequency ablation H/O prior ablation treatment History of arthroscopic knee surgery History of bronchoscopy History of cataract surgery local anesthesia only per pt History of cholecystectomy History of extraction of renal calculus History of lung surgery thoracoscopy, right VATS, wedge resection History of umbilical hernia repair Hx of carpal tunnel repair Pacemaker Implanted 02/2017 secondary to Sinus node dysfunction/tachy sherry syndrome/3rd degree AVB [employer] Pacer check 12/24/17 Status post incision and drainage Family History Mother Cancer Social History Smoking Status: Never smoker Second Hand Exposure: No; Hx Alcohol Use: No Hx Substance Use: No Preferred Language: Malay Communication Ability: Impaired Visual Impairment: Limited Hearing Ability: Normal Flight Security Specialist Required: No Beliefs That Will Affect Care: None marital status: Single Current Living Situation: Custodial Current Living Situation Comment: [facility] current occupational status: retired How many Children do You have: 1 How many Children do You have Comment: children are not involved with care much per pt Feels Safe at Home: Yes Safety Concerns: Feels Safe At This Time Diet Comment: FLUID RESTRICTION during the past year weight has: other Assistive Devices: Walker Allergies Allergies Allergy/AdvReac Type Severity Reaction Status Date / Time No Known Allergies Allergy Verified 06/15/22 15:07 Home Meds Home Medications Medication Instructions Recorded Confirmed Vancomycin Fortified 10mg/Ml 1 drp OPB QID 06/15/22 07/29/22 acetaminophen 325 mg tablet 650 mg PO Q4 PRN Fever Or Pain 06/15/22 07/29/22 (Tylenol) albuterol sulfate 90 mcg/actuation 2 puff inhalation Q4 PRN Shortness 06/15/22 07/29/22 aerosol inhaler Of Breath Or Wheezing allopurinol 300 mg tablet 300 mg PO DAILY 06/15/22 07/29/22 apixaban 5 mg tablet 5 mg PO Q12 06/15/22 07/29/22 aspirin 81 mg tablet,delayed 81 mg PO DAILY 06/15/22 07/29/22 release atorvastatin 10 mg tablet 10 mg PO DAILY 06/15/22 07/29/22 bupropion HCl 150 mg 24 hr tablet, 150 mg PO DAILY 06/15/22 07/29/22 extended release cholecalciferol (vitamin D3) 25 50 mcg PO DAILY 06/15/22 07/29/22 mcg (1,000 unit) tablet (Vitamin D3) digoxin 125 mcg (0.125 mg) tablet 125 mcg PO DAILY 06/15/22 07/29/22 duloxetine 60 mg capsule,delayed 60 mg PO DAILY 06/15/22 07/29/22 release epinephrine 0.3 mg/0.3 mL 0.3 mg IM DIRECTED PRN Allergic 06/15/22 07/29/22 injection, auto-injector Reaction erythromycin 5 mg/gram (0.5 %) eye 1 applic OPB DIRECTED 06/15/22 07/29/22 ointment gabapentin 300 mg capsule 300 mg PO QID 06/15/22 07/29/22 insulin regular human 100 unit/mL 12 unit subcut TIDM 06/15/22 07/29/22 injection solution (Novolin R Regular U-100 Insulin) levothyroxine 125 mcg tablet 250 mcg PO DAILY 06/15/22 07/29/22 lidocaine 5 % topical patch 1 patch topical DAILY 06/15/22 07/29/22 loratadine 10 mg tablet 20 mg PO DAILY PRN .allergies 06/15/22 07/29/22 magnesium oxide 420 mg tablet 420 mg PO DAILY 06/15/22 07/29/22 multivitamin 1 tab PO DAILY 06/15/22 07/29/22 naphazoline 0.025 %-pheniramine 2 drp ophthalmic (eye) Q6 PRN .. 06/15/22 07/29/22 0.3 % eye drops (Naphcon-A) nitroglycerin 0.4 mg sublingual 0.4 mg sublingual DIRECTED PRN 06/15/22 07/29/22 tablet (Nitrostat) Chest Pain nystatin 100,000 unit/gram topical 1 applic topical BID 06/15/22 07/29/22 powder omeprazole 20 mg capsule,delayed 20 mg PO DAILY 06/15/22 07/29/22 release polyvinyl alcohol-povidone (PF) 1 drp OPB DIRECTED 06/15/22 07/29/22 1.4 %-0.6 % eye drops in a dropperette (Refresh Classic (PF)) potassium chloride 20 mEq 20 meq PO DAILY 06/15/22 07/29/22 tablet,extended release(part/cryst) sennosides 8.6 mg tablet (senna) 8.6 mg PO BID 06/15/22 07/29/22 insulin glargine 100 unit/mL 65 unit subcut PM 07/29/22 07/29/22 subcutaneous solution insulin glargine 100 unit/mL 105 unit subcut DAILY 07/29/22 07/29/22 subcutaneous solution insulin regular human 100 unit/mL 1 sliding scale dose subcut 07/29/22 07/29/22 (3 mL) subcutaneous pen (Novolin R USEASDIRECTD FlexPen) Previous Rx's Medication Instructions Recorded furosemide 40 mg tablet 40 mg PO QAM #30 tabs 06/23/22 metoprolol succinate 50 mg 100 mg PO BID #60 tabs 06/23/22 tablet,extended release 24 hr Results & Data (ED) Vital Signs Vital Signs - 24 hr 07/29/22 08:52 07/29/22 08:57 07/29/22 10:16 Temperature 36.9 C Temperature Source Oral Pulse Rate 100 H Pulse Rate [Apical] 90 88 Pulse Rate from SpO2 Sensor Respiratory Rate 17 17 24 Respiratory Depth Normal Blood Pressure 114/88 Blood Pressure [Left Arm] 142/103 H Blood Pressure Mean 96 Blood Pressure Mean [Left Arm] 116 Pulse Oximetry 89 L 96 93 Oxygen Delivery Method Room Air Nasal Cannula Nasal Cannula Oxygen Flow Rate 2 3 Sepsis Recent Fever Within 48 Hours No Sepsis New/Unexplained Change in Mental Status No Sepsis Action Taken by Nursing No Action Required 07/29/22 08:27 07/29/22 08:30 07/29/22 08:40 Temperature Temperature Source Pulse Rate 96 H 98 H 91 H Pulse Rate [Apical] Pulse Rate from SpO2 Sensor 96 H Respiratory Rate 23 18 25 H Respiratory Depth Blood Pressure Blood Pressure [Left Arm] Blood Pressure Mean Blood Pressure Mean [Left Arm] Pulse Oximetry 99 Oxygen Delivery Method Oxygen Flow Rate Sepsis Recent Fever Within 48 Hours Sepsis New/Unexplained Change in Mental Status Sepsis Action Taken by Nursing 07/29/22 08:50 07/29/22 09:00 07/29/22 09:10 Temperature Temperature Source Pulse Rate 90 90 95 H Pulse Rate [Apical] Pulse Rate from SpO2 Sensor Respiratory Rate 26 H 26 H 30 H Respiratory Depth Blood Pressure Blood Pressure [Left Arm] Blood Pressure Mean Blood Pressure Mean [Left Arm] Pulse Oximetry Oxygen Delivery Method Oxygen Flow Rate Sepsis Recent Fever Within 48 Hours Sepsis New/Unexplained Change in Mental Status Sepsis Action Taken by Nursing 07/29/22 09:20 07/29/22 09:48 07/29/22 09:50 Temperature Temperature Source Pulse Rate 86 95 H 85 Pulse Rate [Apical] Pulse Rate from SpO2 Sensor 93 H Respiratory Rate 32 H 24 24 Respiratory Depth Blood Pressure Blood Pressure [Left Arm] Blood Pressure Mean Blood Pressure Mean [Left Arm] Pulse Oximetry 94 Oxygen Delivery Method Oxygen Flow Rate Sepsis Recent Fever Within 48 Hours Sepsis New/Unexplained Change in Mental Status Sepsis Action Taken by Nursing 07/29/22 10:00 07/29/22 10:10 07/29/22 10:16 Temperature Temperature Source Pulse Rate 85 85 84 Pulse Rate [Apical] Pulse Rate from SpO2 Sensor 84 87 Respiratory Rate 21 21 25 H Respiratory Depth Blood Pressure Blood Pressure [Left Arm] Blood Pressure Mean Blood Pressure Mean [Left Arm] Pulse Oximetry 93 94 Oxygen Delivery Method Oxygen Flow Rate Sepsis Recent Fever Within 48 Hours Sepsis New/Unexplained Change in Mental Status Sepsis Action Taken by Nursing 07/29/22 10:16 Temperature Temperature Source Pulse Rate Pulse Rate [Apical] Pulse Rate from SpO2 Sensor Respiratory Rate Respiratory Depth Blood Pressure 142/103 H Blood Pressure [Left Arm] Blood Pressure Mean 116 Blood Pressure Mean [Left Arm] Pulse Oximetry Oxygen Delivery Method Oxygen Flow Rate Sepsis Recent Fever Within 48 Hours Sepsis New/Unexplained Change in Mental Status Sepsis Action Taken by Nursing Laboratory Data 07/29/22 09:00 07/29/22 09:00 Lab Results 07/29/22 07/29/22 07/29/22 Range/Units 09:00 09:00 09:00 WBC 6.77 (4.8-10.8) K/ul RBC 4.38 L (4.63-6.08) M/uL Hgb 11.8 L (14.0-18.0) g/dl Hct 37.7 L (40.1-51.0) % MCV 86.1 (80.0-100.0) fL MCH 26.9 (25.0-34.0) pg MCHC 31.3 L (32.0-36.0) g/dL RDW Std Deviation 46.8 H (36.4-46.3) fL RDW Coeff of Baldo 14.9 H (11.5-14.5) % Plt Count 162 (130-400) K/uL MPV 11.6 (9.4-12.4) fL Immature Gran % (Auto) 0.6 % Neut % (Auto) 71.5 % Lymph % (Auto) 14.8 % Prairie % (Auto) 10.6 % Eos % (Auto) 1.6 % Baso % (Auto) 0.9 % Neut # (Auto) 4.84 (1.4-6.5) K/uL Lymph # (Auto) 1.00 L (1.2-3.4) K/uL [place] # (Auto) 0.72 (0.24-0.82) K/uL Eos # (Auto) 0.11 (0-0.50) K/uL Baso # (Auto) 0.06 (0-0.2) K/uL Immature Gran # (Auto) 0.04 H (0.00-0.02) K/uL ESR (0-20) mm/hr Sodium 135 L (136-145) mmol/L Potassium 4.6 (3.5-5.1) mmol/L Chloride 100 (98-107) mmol/L Carbon Dioxide 31 (21-32) mmol/L Anion Gap 4 (3-11) BUN 25 H (6-23) mg/dl Creatinine 1.10 (0.6-1.4) mg/dl Est Cr Clr Drug Dosing 92.6 ml/min Est GFR ( Amer) 78.4 ml/min Est GFR (Non-Af Amer) 67.7 ml/min BUN/Creatinine Ratio 22.7 H (10-20) Glucose 312 H* (70-99(Fasting)) mg/dl Calcium 9.6 (8.5-10.1) mg/dl Total Bilirubin 1.3 H (0.2-1.0) mg/dl AST 20 (13-39) U/L ALT 11 (7-52) U/L Alkaline Phosphatase 105 H (34-104) U/L Troponin I High Sens 11.8 (0-20) pg/ml C-Reactive Protein (0-0.5) mg/dl B-Natriuretic Peptide (0-100) pg/ml Total Protein 7.0 (6.0-8.3) gm/dl Albumin 3.4 (3.4-5.0) gm/dl Globulin 3.6 (2.5-4.0) gm/dl Albumin/Globulin Ratio 0.9 (0.9-2) Lipase 11 (11-82) U/L SARS-CoV-2 (PCR) NEGATIVE (Negative) Influenza Type A (PCR) Negative (Neg) Influenza Type B (PCR) Negative (Neg) RSV (RT-PCR) Negative (Neg) 07/29/22 07/29/22 07/29/22 Range/Units 09:00 09:00 09:00 WBC (4.8-10.8) K/ul RBC (4.63-6.08) M/uL Hgb (14.0-18.0) g/dl Hct (40.1-51.0) % MCV (80.0-100.0) fL MCH (25.0-34.0) pg MCHC (32.0-36.0) g/dL RDW Std Deviation (36.4-46.3) fL RDW Coeff of Baldo (11.5-14.5) % Plt Count (130-400) K/uL MPV (9.4-12.4) fL Immature Gran % (Auto) % Neut % (Auto) % Lymph % (Auto) % [place] % (Auto) % Eos % (Auto) % Baso % (Auto) % Neut # (Auto) (1.4-6.5) K/uL Lymph # (Auto) (1.2-3.4) K/uL [place] # (Auto) (0.24-0.82) K/uL Eos # (Auto) (0-0.50) K/uL Baso # (Auto) (0-0.2) K/uL Immature Gran # (Auto) (0.00-0.02) K/uL ESR 83 H (0-20) mm/hr Sodium (136-145) mmol/L Potassium (3.5-5.1) mmol/L Chloride (98-107) mmol/L Carbon Dioxide (21-32) mmol/L Anion Gap (3-11) BUN (6-23) mg/dl Creatinine (0.6-1.4) mg/dl Est Cr Clr Drug Dosing ml/min Est GFR ( Amer) ml/min Est GFR (Non-Af Amer) ml/min BUN/Creatinine Ratio (10-20) Glucose (70-99(Fasting)) mg/dl Calcium (8.5-10.1) mg/dl Total Bilirubin (0.2-1.0) mg/dl AST (13-39) U/L ALT (7-52) U/L Alkaline Phosphatase (34-104) U/L Troponin I High Sens (0-20) pg/ml C-Reactive Protein 3.52 H (0-0.5) mg/dl B-Natriuretic Peptide 198 H (0-100) pg/ml Total Protein (6.0-8.3) gm/dl Albumin (3.4-5.0) gm/dl Globulin (2.5-4.0) gm/dl Albumin/Globulin Ratio (0.9-2) Lipase (11-82) U/L SARS-CoV-2 (PCR) (Negative) Influenza Type A (PCR) (Neg) Influenza Type B (PCR) (Neg) RSV (RT-PCR) (Neg) Administered Medications Acetaminophen (Acetaminophen 325 Mg Tab) 650 mg PO Q4H PRN PRN Reason: Pain or Fever Stop: 08/28/22 12:46 Last Admin: 07/29/22 13:32 Dose: 650 mg Documented By: LAF Discontinued Medications Furosemide (Furosemide 40 Mg/4 Ml Vial) 40 mg IV NOW STA Stop: 07/29/22 10:02 Last Admin: 07/29/22 10:15 Dose: 40 mg Documented By: KV Insulin Human Regular (Novolin-R Insulin Per Unit Charge) 4 units IV NOW STA Stop: 07/29/22 10:02 Last Admin: 07/29/22 10:15 Dose: 4 units Documented By: KV Co-signed By: Imaging Data Radiologist's Impression: Chest X-Ray 07/29/22 08:32 XR chest 1V portable CLINICAL HISTORY: Chest pain, nonspecific TECHNIQUE: Single frontal radiograph of the chest was obtained. Comparison: Comparison is made to chest radiograph 06/19/2022 FINDINGS: Exam is limited by underpenetration. Dual lead pacemaker is seen. The cardiomediastinal silhouette is normal. There is prominence and cephalization of the vasculature with Skyla B lines seen. No evidence of pleural effusion or pneumothorax. IMPRESSION: Cardiomegaly and moderate pulmonary edema. ACT 112: Negative or not required by law. Electronically signed by: Benji Correa M.D. 07/29/2022 9:[address] 07/29/22 08:32 CT head/brain wo con CLINICAL HISTORY: 72 years-old Male with norman. Acute headache with visual disturbance TECHNIQUE: Multiple axial CT images of the head were obtained without contrast. A dose lowering technique was utilized adhering to the principles of ALARA. CT DOSE: 537.48 mGy.cm COMPARISON: Head CT 06/16/2022 FINDINGS: No acute intracranial hemorrhage, midline shift, intracranial mass, hydrocephalus, territorial ischemia or abnormal extra-axial collection. Age- related involutional changes. White matter hypodensities suggestive of chronic microvascular ischemic disease. Cerebral vascular calcifications, most pronounced within the V4 segment of the right vertebral artery. The calvarium is intact. Prior bilateral lens repair. The paranasal sinuses, mastoid air cells, and middle ear cavities are clear. IMPRESSION: No acute intracranial abnormality. ACT 112: Negative or not required by law. The above report was generated using voice recognition software. It may contain grammatical, syntax or spelling errors. Electronically signed by: Bartolome Menchaca M.D. 07/29/2022 9:39 AM Discharge Plan Visit Data Chief Complaint: Illness Stated Complaint: HEADACHE, BLURRY VISION, FACIAL PAIN ED Provider: Pedro Klein Discharge Problem: Respiratory failure with hypoxia, Acute on chronic diastolic CHF (congestive heart failure), Weakness Patient Disposition: Admitted As Inpatient Discharge Instructions Interventions: ED Discharge Assessment Last Done: 07/29/22 12:02
--- NOTE | 2022-07-29 09:03 | XRay Report ---
XR chest 1V portable CLINICAL HISTORY: Chest pain, nonspecific TECHNIQUE: Single frontal radiograph of the chest was obtained. Comparison: Comparison is made to chest radiograph 06/19/2022 FINDINGS: Exam is limited by underpenetration. Dual lead pacemaker is seen. The cardiomediastinal silhouette is normal. There is prominence and cephalization of the vasculature with Skyla B lines seen. No eviden ce of pleural effusion or pneumothorax. IMPRESSION: Cardiomegaly and moderate pulmonary edema. ACT 112: Negative or not required by law. Electronically signed by: Benji Correa M.D. 07/29/2022 9:01 AM
[2022-07-29 09:23] LABS: Basophils # (auto) 0.06 K/uL (0-0.2); Basophils % (auto) 0.9 %; Eosinophils # (auto) 0.11 K/uL (0-0.50); Eosinophils % (auto) 1.6 %; Hematocrit (blood only) 37.7 % (40.1-51.0); Hemoglobin 11.8 g/dl (14.0-18.0); Immature Granulocytes # (auto) 0.04 K/uL (0.00-0.02); Immature Granulocytes % (auto) 0.6 %; Lymphocytes % (auto) 14.8 %; Mean Corpuscular Hemoglobin 26.9 pg (25.0-34.0); Mean Corpuscular Hgb Conc 31.3 g/dL (32.0-36.0); Mean Corpuscular Volume 86.1 fL (80.0-100.0); Mean Platelet Volume 11.6 fL (9.4-12.4); Monocytes # (auto) 0.72 K/uL (0.24-0.82); Monocytes % (auto) 10.6 %; Neutrophils # (auto) 4.84 K/uL (1.4-6.5); Neutrophils % (auto) 71.5 %; Platelet Count 162 K/uL (130-400); RDW Coefficient of Variation 14.9 % (11.5-14.5); RDW Standard Deviation 46.8 fL (36.4-46.3); Red Blood Count 4.38 M/uL (4.63-6.08); White Blood Count 6.77 K/ul (4.8-10.8)
--- NOTE | 2022-07-29 09:40 | CT Scan Report ---
CT head/brain wo con CLINICAL HISTORY: 72 years-old Male with norman. Acute headache with visual disturbance TECHNIQUE: Multiple axial CT images of the head were obtained without contrast. A dose lowering tech nique was utilized adhering to the principles of ALARA. CT DOSE: 537.48 mGy.cm COMPARISON: Head CT 06/16/2022 FINDINGS: No acute intracranial hemorrhage, midline shift, intracranial mass, hydrocephalus, territorial ischem ia or abnormal extra-axial collection. Age-related involutional changes. White matter hypodensities s uggestive of chronic microvascular ischemic disease. Cerebral vascular calcifications, most pronounce d within the V4 segment of the right vertebral artery. The calvarium is intact. Prior bilateral lens repair. The paranasal sinuses, mastoid air cells, and m iddle ear cavities are clear. IMPRESSION: No acute intracranial abnormality. ACT 112: Negative or not required by law. The above report was generated using voice recognition software. It may contain grammatical, syntax o r spelling errors. Electronically signed by: Bartolome Menchaca M.D. 07/29/2022 9:39 AM
[2022-07-29 09:55] LABS: Albumin Globulin Ratio 0.9 (0.9-2); Albumin Level 3.4 gm/dl (3.4-5.0); BUN Creatinine Ratio 22.7 (10-20); Bilirubin,Total 1.3 mg/dl (0.2-1.0); Calcium 9.6 mg/dl (8.5-10.1); Creatinine Clr Calc Pharmacy 92.6 ml/min; Est GFR (African American) 78.4 ml/min; Est GFR (Non-African American) 67.7 ml/min; Globulin 3.6 gm/dl (2.5-4.0); Potassium 4.6 mmol/L (3.5-5.1); Troponin I High Sensitivity 11.8 pg/ml (0-20)
[2022-07-29] MEDS ORDERED: FUROSEMIDE 40 MG/4 ML VIAL IV STA (10:01)
[2022-07-29] MEDS ORDERED: NovoLIN-R INSULIN PER UNIT CHARGE IV STA (10:01)
[2022-07-29 10:29] LABS: Influenza A virus by PCR Negative (Neg); Influenza B virus by PCR Negative (Neg); RSV by PCR Negative (Neg); SARS CoV2 RNA(COVID-19) Ceph NEGATIVE (Negative)
[2022-07-29] MEDS ORDERED: PHARMACY GLYCEMIC MGMT CONSULT PRN ×2 (11:12→12:47)
[2022-07-29] MEDS ORDERED: GLUCAGON FOR INJ 1 MG VIAL IM PRN (12:30)
[2022-07-29] MEDS ORDERED: DEXTROSE 50% 50 ML SYRINGE IV PRN ×2 (12:30→12:47)
[2022-07-29] MEDS ORDERED: GLUCOSE 10 TAB/TUBE PO PRN ×2 (12:30→12:47)
[2022-07-29] MEDS ORDERED: CARBOHYDRATES FOR HYPOGLYCEMIA PO PRN ×2 (12:30→12:47)
[2022-07-29] MEDS ORDERED: GLUCOSE 40% GEL 15 GM TUBE PO PRN ×2 (12:30→12:47)
--- NOTE | 2022-07-29 12:35 | History & Physical Report ---
Date of Service July 29, 2022 Assessment & Plan (1) Respiratory failure with hypoxia: (2) Acute on chronic diastolic CHF (congestive heart failure): Plan: Admit to tele Patient presenting from [facility] for evaluation of right ear/jaw/head pain. Upon EMS arrival, patient was found to be hypoxic in the high 80s requiring 2L O2. Patient typically only wears O2 at night. Patient denies worsening shortness of breath and weight gain. Does report slight increase in LE edema. CXR shows moderate pulmonary edema echo 12/2021 - EF 55-60% Volume typically managed with Lasix 40mg PO daily. Received Lasix 40mg IV in the ED, will continue with Lasix 40mg IV BID update echo cardio consult strict I/Os, daily standing weights, low Na+ diet (3) Temporomandibular joint (TMJ) pain: Plan: TMJ MRI Carotid US ESR, CRP ENT consult (4) Hyperglycemia due to type 2 diabetes mellitus: Plan: hgb a1c 11.6 06/2022 glucose 312 on admission labs, no signs of DKA glycemic pharmacy consult (5) Tachy-sherry syndrome: (6) Pacemaker: (7) Paroxysmal atrial fibrillation: Plan: Rate controlled on metoprolol and digoxin Anticoagulated on Eliquis (8) Hypothyroidism: Plan: Continue levothyroxine (9) DVT prophylaxis: Plan: On Eliquis I spent a total of 50 minutes coordinating, documenting, and providing care for this patient excluding time spent in the performance of separately billed services. This included personally reviewing all current laboratories and imaging studies, medication reconciliation, outpatient chart review, and discussion with specialists. History of Present Illness Chief Complaint: Right jaw pain Primary Care Provider: [employer] [facility] 72-year-old male with PMH DM type II, tachybradycardia syndrome s/p pacemaker, atrial fibrillation on Eliquis, chronic diastolic CHF, nocturnal hypoxia, hypothyroidism, and other problems listed below who presents to the ED for evaluation of right ear/jaw/head pain. Patient reports symptoms have been ongoing for the past one week. Pain has been intermittent and when it comes on, patient reports his right eye nobles. When EMS was called to bring the patient to the hospital, he was found to be hypoxic at 88%. Patient typically only wears O2 at night. Patient states that he has chronic exertional shortness of breath which is unchanged from baseline. Weight has been stable. Reports lower extremity edema is slightly worse than normal. No orthopnea. Patient denies chest pain, palpitations. Has an occasional non productive cough. No fevers or chills. Denies abdominal pain, nausea, vomiting, diarrhea. No urinary symptoms. In the ED, patient was requiring 2 L of oxygen via nasal cannula. Labs show glucose 312, otherwise unremarkable. CXR shows moderate pulmonary edema. Head CT negative for acute findings. Patient was given Lasix 40 mg IV and insulin 4 units IV. Allergies Allergy/AdvReac Type Severity Reaction Status Date / Time No Known Allergies Allergy Verified 06/15/22 15:07 Home Medications Medication Instructions Recorded Confirmed Type Vancomycin Fortified 10mg/Ml 1 drp OPB QID 06/15/22 07/29/22 History acetaminophen 325 mg tablet 650 mg PO Q4 PRN Fever Or Pain 06/15/22 07/29/22 History (Tylenol) albuterol sulfate 90 mcg/actuation 2 puff inhalation Q4 PRN Shortness 06/15/22 07/29/22 History aerosol inhaler Of Breath Or Wheezing allopurinol 300 mg tablet 300 mg PO DAILY 06/15/22 07/29/22 History apixaban 5 mg tablet 5 mg PO Q12 06/15/22 07/29/22 History aspirin 81 mg tablet,delayed 81 mg PO DAILY 06/15/22 07/29/22 History release atorvastatin 10 mg tablet 10 mg PO DAILY 06/15/22 07/29/22 History bupropion HCl 150 mg 24 hr tablet, 150 mg PO DAILY 06/15/22 07/29/22 History extended release cholecalciferol (vitamin D3) 25 50 mcg PO DAILY 06/15/22 07/29/22 History mcg (1,000 unit) tablet (Vitamin D3) digoxin 125 mcg (0.125 mg) tablet 125 mcg PO DAILY 06/15/22 07/29/22 History duloxetine 60 mg capsule,delayed 60 mg PO DAILY 06/15/22 07/29/22 History release epinephrine 0.3 mg/0.3 mL 0.3 mg IM DIRECTED PRN Allergic 06/15/22 07/29/22 History injection, auto-injector Reaction erythromycin 5 mg/gram (0.5 %) eye 1 applic OPB DIRECTED 06/15/22 07/29/22 History ointment gabapentin 300 mg capsule 300 mg PO QID 06/15/22 07/29/22 History insulin regular human 100 unit/mL 12 unit subcut TIDM 06/15/22 07/29/22 History injection solution (Novolin R Regular U-100 Insulin) levothyroxine 125 mcg tablet 250 mcg PO DAILY 06/15/22 07/29/22 History lidocaine 5 % topical patch 1 patch topical DAILY 06/15/22 07/29/22 History loratadine 10 mg tablet 20 mg PO DAILY PRN .allergies 06/15/22 07/29/22 History magnesium oxide 420 mg tablet 420 mg PO DAILY 06/15/22 07/29/22 History multivitamin 1 tab PO DAILY 06/15/22 07/29/22 History naphazoline 0.025 %-pheniramine 2 drp ophthalmic (eye) Q6 PRN .. 06/15/22 07/29/22 History 0.3 % eye drops (Naphcon-A) nitroglycerin 0.4 mg sublingual 0.4 mg sublingual DIRECTED PRN 06/15/22 07/29/22 History tablet (Nitrostat) Chest Pain nystatin 100,000 unit/gram topical 1 applic topical BID 06/15/22 07/29/22 History powder omeprazole 20 mg capsule,delayed 20 mg PO DAILY 06/15/22 07/29/22 History release polyvinyl alcohol-povidone (PF) 1 drp OPB DIRECTED 06/15/22 07/29/22 History 1.4 %-0.6 % eye drops in a dropperette (Refresh Classic (PF)) potassium chloride 20 mEq 20 meq PO DAILY 06/15/22 07/29/22 History tablet,extended release(part/cryst) sennosides 8.6 mg tablet (senna) 8.6 mg PO BID 06/15/22 07/29/22 History furosemide 40 mg tablet 40 mg PO QAM #30 tabs 06/23/22 07/29/22 Rx metoprolol succinate 50 mg 100 mg PO BID #60 tabs 06/23/22 07/29/22 Rx tablet,extended release 24 hr insulin glargine 100 unit/mL 65 unit subcut PM 07/29/22 07/29/22 History subcutaneous solution insulin glargine 100 unit/mL 105 unit subcut DAILY 07/29/22 07/29/22 History subcutaneous solution insulin regular human 100 unit/mL 1 sliding scale dose subcut 07/29/22 07/29/22 History (3 mL) subcutaneous pen (Novolin R USEASDIRECTD FlexPen) Past Med/Surg History Medical History Arthritis Atrial flutter Bifascicular block CAD (coronary artery disease) Cardiac pacemaker in situ Cardiomyopathy Chronic anticoagulation Chronic diastolic CHF (congestive heart failure) Chronic venous insufficiency CKD (chronic kidney disease) stage 3, GFR 30-59 ml/min Claustrophobia Closed fracture of thyroid cartilage COPD, moderate COVID-19 Depression Diabetes mellitus, type 2 insulin pump Entropion of left lower eyelid Fatty liver Gout Hyperlipidemia Hypertension Hypothyroidism Iatrogenic pulmonary embolism Interstitial lung disease Morbid obesity MRSA infection Nephrolithiasis Nocturnal hypoxemia SALAS (obstructive sleep apnea) Osteoarthritis Paroxysmal atrial fibrillation Prolonged QT interval Pulmonary embolism B/L- 5+ years ago Sarcoidosis possible- evaluated by pulmonary; felt no active sarcoidosis and would not merit steroid therapy given weight/diabetic state. Sleep apnea CPAP Solitary pulmonary nodule Tachy-sherry syndrome Tachycardia induced cardiomyopathy "prior EF of 25% while in aflutter, subsequently normal in NSR" Surgical History H/O cardiac radiofrequency ablation H/O prior ablation treatment History of arthroscopic knee surgery History of bronchoscopy History of cataract surgery local anesthesia only per pt History of cholecystectomy History of extraction of renal calculus History of lung surgery thoracoscopy, right VATS, wedge resection History of umbilical hernia repair Hx of carpal tunnel repair Pacemaker Implanted 02/2017 secondary to Sinus node dysfunction/tachy sherry syndrome/3rd degree AVB [employer] Pacer check 12/24/17 Status post incision and drainage Family History Mother Cancer Social History Smoking Status: Never smoker Second Hand Exposure: No; Hx Alcohol Use: No Hx Substance Use: No Preferred Language: Vietnamese Communication Ability: Effective Visual Impairment: Limited Hearing Ability: Normal Clinical Research Manager Required: No Beliefs That Will Affect Care: None marital status: Single Current Living Situation: Residential Current Living Situation Comment: [facility] current occupational status: retired How many Children do You have: 1 How many Children do You have Comment: children are not involved with care much per pt Feels Safe at Home: Yes Safety Concerns: Feels Safe At This Time Diet Comment: FLUID RESTRICTION during the past year weight has: other Assistive Devices: Walker Review of Systems Review of Systems: ROS per HPI, all other systems reviewed and negative Physical Exam Constitutional: WD/WN, vitals as above + obese; no acute distress Eyes: PERRL, conjunctivae normal, anicteric sclerae ENMT: external ear and nose normal, oropharynx normal Mouth: + TMJ tender (right) Respiratory: normal respiratory effort; no respiratory distress Auscultation: + crackles (BL bases) Cardiovascular: Rate/Rhythm: regular rate and regular rhythm Vessels: normal peripheral pulses Extremities: + edema (+2 edema BLE) Gastrointestinal (Abdomen): normal bowel sounds, soft, nontender, no hepatosplenomegaly Musculoskeletal: no cyanosis or clubbing, extremities motor strength 5/5 Skin: no rashes, warm and dry chronic venous changes BLE Neurologic: PERRL, EOMI, accommodation nl, no face palsy, no dysarthria Psychiatric: A+Ox3, euthymic affect Results & Data Results & Data ([facility]) Vital Signs (Past 12 Hours) Vital Signs Temp Pulse Pulse Resp BP BP Pulse Ox 07/29/22 12:02 88 17 135/86 96 07/29/22 11:40 75 19 07/29/22 11:30 91 H 16 07/29/22 11:20 96 H 16 07/29/22 11:10 83 25 H 07/29/22 11:00 90 16 07/29/22 10:50 90 23 07/29/22 10:40 103 H 29 H 07/29/22 10:30 86 25 H 88 L 07/29/22 10:20 85 25 H 96 07/29/22 10:16 142/103 H 07/29/22 10:16 84 25 H 94 07/29/22 10:10 85 21 93 07/29/22 10:00 85 21 07/29/22 09:50 85 24 94 07/29/22 09:48 95 H 24 07/29/22 09:20 86 32 H 07/29/22 09:10 95 H 30 H 07/29/22 09:00 90 26 H 07/29/22 08:50 90 26 H 07/29/22 08:40 91 H 25 H 07/29/22 08:30 98 H 18 07/29/22 08:27 96 H 23 99 07/29/22 10:16 88 24 142/103 H 93 07/29/22 08:57 90 17 96 07/29/22 08:52 36.9 C 100 H 17 114/88 89 L O2 Del Method O2 Flow Rate 07/29/22 12:02 Nasal Cannula 2 07/29/22 11:40 07/29/22 11:30 07/29/22 11:20 07/29/22 11:10 07/29/22 11:00 07/29/22 10:50 07/29/22 10:40 07/29/22 10:30 07/29/22 10:20 07/29/22 10:16 07/29/22 10:16 07/29/22 10:10 07/29/22 10:00 07/29/22 09:50 07/29/22 09:48 07/29/22 09:20 07/29/22 09:10 07/29/22 09:00 07/29/22 08:50 07/29/22 08:40 07/29/22 08:30 07/29/22 08:27 07/29/22 10:16 Nasal Cannula 3 07/29/22 08:57 Nasal Cannula 2 07/29/22 08:52 Room Air Laboratory Results Short CBC 07/29/22 Range/Units 09:00 WBC 6.77 (4.8-10.8) K/ul Hgb 11.8 L (14.0-18.0) g/dl Hct 37.7 L (40.1-51.0) % Plt Count 162 (130-400) K/uL BMP 07/29/22 09:00 Sodium 135 L Potassium 4.6 Chloride 100 Carbon Dioxide 31 BUN 25 H Creatinine 1.10 Glucose 312 H* Calcium 9.6 Liver Function 07/29/22 Range/Units 09:00 Total Bilirubin 1.3 H (0.2-1.0) mg/dl AST 20 (13-39) U/L ALT 11 (7-52) U/L Alkaline Phosphatase 105 H (34-104) U/L Albumin 3.4 (3.4-5.0) gm/dl Diagnostic Findings Chest X-Ray 07/29/22 08:32 XR chest 1V portable CLINICAL HISTORY: Chest pain, nonspecific TECHNIQUE: Single frontal radiograph of the chest was obtained. Comparison: Comparison is made to chest radiograph 06/19/2022 FINDINGS: Exam is limited by underpenetration. Dual lead pacemaker is seen. The cardiomediastinal silhouette is normal. There is prominence and cephalization of the vasculature with Skyla B lines seen. No evidence of pleural effusion or pneumothorax. IMPRESSION: Cardiomegaly and moderate pulmonary edema. ACT 112: Negative or not required by law. Electronically signed by: Benji Correa M.D. 07/29/2022 9:[address] 07/29/22 08:32 CT head/brain wo con CLINICAL HISTORY: 72 years-old Male with norman. Acute headache with visual disturbance TECHNIQUE: Multiple axial CT images of the head were obtained without contrast. A dose lowering technique was utilized adhering to the principles of ALARA. CT DOSE: 537.48 mGy.cm COMPARISON: Head CT 06/16/2022 FINDINGS: No acute intracranial hemorrhage, midline shift, intracranial mass, hydrocephalus, territorial ischemia or abnormal extra-axial collection. Age- related involutional changes. White matter hypodensities suggestive of chronic microvascular ischemic disease. Cerebral vascular calcifications, most pronounced within the V4 segment of the right vertebral artery. The calvarium is intact. Prior bilateral lens repair. The paranasal sinuses, mastoid air cells, and middle ear cavities are clear. IMPRESSION: No acute intracranial abnormality. ACT 112: Negative or not required by law. The above report was generated using voice recognition software. It may contain grammatical, syntax or spelling errors. Electronically signed by: Bartolome Menchaca M.D. 07/29/2022 9:39 AM Code Status & VTE Plan Code Status Patient is a full code as per my discussion with him. VTE Prophylaxis Plan VTE Prophylaxis will be ordered: No Supervising Physician Co-Signing Physician Notes 72-year-old man presents with acute right facial pain and right-sided temporal headache for the last 3 weeks. The pain is persistent. He denies any fevers chills or other respiratory symptoms. He specifically denies any shortness of breath but does report increased exercise intolerance over the past couple of weeks. He does take Lasix daily and has been compliant with his meds. Notably EMS found him hypoxic at 88% which was improved with a small amount of oxygen supplementation. Patient typically only wears oxygen at night. The patient is morbidly obese and reports his weight is stable. Volume status is difficult to ascertain secondary to his body habitus but overall he appears euvolemic. He also has chronic eye irritation and has been on antibiotic eyedrops for the last 2 years with intermittent use of Visine. His eyes appear irritated today. Physical exam he is a morbidly obese man in no acute distress. He has normal respiratory effort on minimal oxygen supplementation via nasal cannula. He is clear and mentating well, able to give a good history. HEENT exam reveals tenderness to palpation of the right TMJ externally and internally. There is no palpable or tender lymph nodes in the submandibular or cervical space. There is no enlarged parotid gland. External auditory canals with some cerumen but tympanic membrane on the right is clear and no middle ear fluid is seen. Bilateral conjunctivae are irritated and eyes are watery. Cardiac exam reveals S1/S2 heard with regular rate and rhythm. There is no evidence of murmurs gallops or rubs. Lungs are clear to auscultation throughout and he has good gelacio ath sounds throughout with normal respiratory effort. He has no peripheral edema or swelling. Work-up today includes CBC with a normal white blood cell count, H&H that is slightly lower than his baseline but not by much at 11.8/38, platelet count is normal. An ESR is elevated at 83 with a CRP of 3.52. Glucose was elevated on arrival to 312 despite him taking his morning insulin. BNP is slightly elevated at 198. Nasal swab for SARS-CoV-2, flu, RSV is negative. Chest x-ray revealed cardiomegaly and moderate pulmonary edema. Head CT without contrast revealed no acute intracranial abnormality. Carotid Doppler was ordered with read pending. An MRI TMJ was ordered however radiology refused this to be done as inpatient. An MRI brain and MRA of the head was ordered instead. Overall this is man who presents with acute right facial pain ongoing for the last 3 weeks with an incidental finding of pulmonary edema and minimal hypoxia. Agree with IV diuretic for the time being and cardiology consult. For the facial pain he is already on gabapentin which is clearly not helping at 300mg QID. Can consider increasing this, however, for now will give additional narcotic pain medication. Etiologies include but are not limited to trigeminal neuralgia from inflammation or other vascular processes, tumors, or ophthalmic conjunctivitis (eyes are injected and watery but this is bilateral, arterial compression of the trigeminal nerve root from cerebellar arteries or vertebral artery, veins, MS (nerve demyelination), temporal arteritis. He does have an elevation in inflammatory markers which we will trend in AM. If MRI brain is negative, consider GCA and temporal artery biopsy. Would also consider neurologic consult to weigh in as there are no visual symptoms and this may just be consistent with TMJ disorder. ENT has been consulted, appreciate recommendations. Cont pain control efforts overnight. DO Pete (1) Hyperglycemia due to type 2 diabetes mellitus Diabetes mellitus tank terminal gauger insulin use: with mcc use Qualified Code(s): E11.65 - Type 2 diabetes mellitus with hyperglycemia; Z79.4 - intermediate designer (current) use of insulin (2) Hypothyroidism Hypothyroidism type: unspecified Qualified Code(s): E03.9 - Hypothyroidism, unspecified
[2022-07-29] MEDS ORDERED: NAPHAZOLIN/PHENIRAMIN OPH SOLN 75 DROPS/5 ML BTL OP PRN (12:47)
[2022-07-29] MEDS ORDERED: GLUCAGON FOR INJ 1 MG VIAL SQ PRN (12:47)
[2022-07-29] MEDS ORDERED: ERYTHROMYCIN OP OINT 5 MG/GM 3.5 GM TUBE OPB SCH (12:47)
[2022-07-29] MEDS ORDERED: INSULIN ASPART PER UNIT CHARGE SC SCH (12:47)
[2022-07-29] MEDS ORDERED: VANCOMYCIN OPB SCH (13:00)
--- NOTE | 2022-07-29 13:26 | Pharmacy Report ---
Pharmacy Glycemic Short Note 2 - Date of Service July 29, 2022 - Glycemic Short BSG Results (Last 24 hours): 07/29/22 07/29/22 09:00 12:57 Glucose 312 H* POC Glucose 258 H OUTPATIENT ANTIDIABETIC REGIMEN: * Lantus 105 units AM + 65 units PM * Novolin R 12 units TIDM + SSI (see below) * 70 - 150 mg/dl 0 units * 151 - 199 mg/dl 5 units * 200 - 250 mg/dl 7 units * 251 - 300 mg/dl 10 units * 301 - 350 mg/dl 13 units * 351 - 400 mg/dl 15 units * >400 mg/dl 30 units ASSESSMENT: * 72-year-old male with PMH DM type II [facility]Head [facility]. Random morning BSG 312 mg/dl and POC at noon 258 mg/dl. He received Insulin regular 4 units IV in the ED. Per nursing facility, he did not receive any insulin on morning of presentation to the ED. PLAN FOR INPATIENT GLYCEMIC CONTROL: * Basal insulin * Lantus 60 units x 1 SQ with evening meal with overnight checks * Bolus insulin * NovoLog per scale ACHS or Q6hrs while NPO * Goal Range: Low 110 mg/dL - High 140 mg/dL * Correction Factor: 10 mg/dL/unit * Nutritional / Prandial insulin per carb ratio of 1 unit per 3 grams CHO consumed
[2022-07-29] MEDS: ACETAMINOPHEN 325 MG TAB PO PRN (13:32)
[2022-07-29] MEDS ORDERED: LANTUS PER UNIT CHARGE SQ ONE ×2 (14:15→16:30)
[2022-07-29] MEDS: INSULIN ASPART PER UNIT CHARGE SQ SCH ×3 (15:10→21:54)
[2022-07-29] MEDS: GABAPENTIN 300 MG CAP PO SCH ×3 (15:16→21:54)
--- NOTE | 2022-07-29 15:59 | Cardiology Consultation ---
Date of Consultation July 29, 2022 Assessment & Plan (1) Acute on chronic diastolic CHF (congestive heart failure): (2) Respiratory failure with hypoxia: (3) Temporomandibular joint (TMJ) pain: (4) Weakness: (5) SALAS (obstructive sleep apnea): (6) History of pulmonary embolism: (7) Tachy-sherry syndrome: (8) Pacemaker: (9) Interstitial lung disease: (10) Morbid obesity: (11) Atrial flutter: (12) Sarcoidosis: (13) Tachycardia induced cardiomyopathy: Plan I agree that the patient appears to be in acute decompensated diastolic heart failure Renal function is normal so continue with Lasix 40 mg IV twice daily Strict I's and O's along with daily weights on same standing scale Follow and replete electrolytes as necessary History of Present Illness Reason for Consultation: hypoxia Requesting Physician: FLOWER Attending Physician: Marina Freeman, History of Present Illness It was my pleasure see Mr. Luna in cardiac consultation today July 30, 2022. He is a very pleasant 72-year-old gentleman who is very well known to our cardiology practice that presented to [facility] Emergency Department on July 29, 2022 with complaints of right ear, jaw and head pain. EMS was summoned he was found to be hypoxic but states that his breathing was at baseline. The senior care also noticed increased lower extremity edema over last several days. He was given dose of IV Lasix in the emergency department with good diuresis. Currently he states he feels well at rest. Cardiac hx: 1. Past paroxysmal now approaching persistent atrial fibrillation. Prior flutter ablation 2012 2. 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 Past tachycardia mediated cardiomyopathy with return to normal LV function 4. Hypertensive heart disease with diastolic/right heart failure, on furosemide. prn metolazone 5. Interstitial lung disease/obstructive sleep apnea/Possible amiodarone toxicity per record 6. Morbid obesity Allergies Allergy/AdvReac Type Severity Reaction Status Date / Time No Known Allergies Allergy Verified 06/15/22 15:07 Home Medications Medication Instructions Recorded Confirmed Type Vancomycin Fortified 10mg/Ml 1 drp OPB QID 06/15/22 07/29/22 History acetaminophen 325 mg tablet 650 mg PO Q4 PRN Fever Or Pain 06/15/22 07/29/22 History (Tylenol) albuterol sulfate 90 mcg/actuation 2 puff inhalation Q4 PRN Shortness 06/15/22 07/29/22 History aerosol inhaler Of Breath Or Wheezing allopurinol 300 mg tablet 300 mg PO DAILY 06/15/22 07/29/22 History apixaban 5 mg tablet 5 mg PO Q12 06/15/22 07/29/22 History aspirin 81 mg tablet,delayed 81 mg PO DAILY 06/15/22 07/29/22 History release atorvastatin 10 mg tablet 10 mg PO DAILY 06/15/22 07/29/22 History bupropion HCl 150 mg 24 hr tablet, 150 mg PO DAILY 06/15/22 07/29/22 History extended release cholecalciferol (vitamin D3) 25 50 mcg PO DAILY 06/15/22 07/29/22 History mcg (1,000 unit) tablet (Vitamin D3) digoxin 125 mcg (0.125 mg) tablet 125 mcg PO DAILY 06/15/22 07/29/22 History duloxetine 60 mg capsule,delayed 60 mg PO DAILY 06/15/22 07/29/22 History release epinephrine 0.3 mg/0.3 mL 0.3 mg IM DIRECTED PRN Allergic 06/15/22 07/29/22 History injection, auto-injector Reaction erythromycin 5 mg/gram (0.5 %) eye 1 applic OPB DIRECTED 06/15/22 07/29/22 History ointment gabapentin 300 mg capsule 300 mg PO QID 06/15/22 07/29/22 History levothyroxine 125 mcg tablet 250 mcg PO DAILY 06/15/22 07/29/22 History lidocaine 5 % topical patch 1 patch topical DAILY 06/15/22 07/29/22 History loratadine 10 mg tablet 20 mg PO DAILY PRN .allergies 06/15/22 07/29/22 History magnesium oxide 420 mg tablet 420 mg PO DAILY 06/15/22 07/29/22 History multivitamin 1 tab PO DAILY 06/15/22 07/29/22 History naphazoline 0.025 %-pheniramine 2 drp ophthalmic (eye) Q6 PRN .. 06/15/22 07/29/22 History 0.3 % eye drops (Naphcon-A) nitroglycerin 0.4 mg sublingual 0.4 mg sublingual DIRECTED PRN 06/15/22 07/29/22 History tablet (Nitrostat) Chest Pain nystatin 100,000 unit/gram topical 1 applic topical BID 06/15/22 07/29/22 History powder omeprazole 20 mg capsule,delayed 20 mg PO DAILY 06/15/22 07/29/22 History release polyvinyl alcohol-povidone (PF) 1 drp OPB DIRECTED 06/15/22 07/29/22 History 1.4 %-0.6 % eye drops in a dropperette (Refresh Classic (PF)) sennosides 8.6 mg tablet (senna) 8.6 mg PO BID 06/15/22 07/29/22 History metoprolol succinate 50 mg 100 mg PO BID #60 tabs 06/23/22 07/29/22 Rx tablet,extended release 24 hr insulin glargine 100 unit/mL 65 unit subcut PM 07/29/22 07/29/22 History subcutaneous solution insulin glargine 100 unit/mL 105 unit subcut DAILY 07/29/22 07/29/22 History subcutaneous solution insulin regular human 100 unit/mL 1 sliding scale dose subcut 07/29/22 07/29/22 History (3 mL) subcutaneous pen (Novolin R USEASDIRECTD FlexPen) furosemide 40 mg tablet 40 mg PO BID #30 tabs 08/01/22 07/29/22 Rx insulin regular human 100 unit/mL 14 unit (0.14 mL) subcut TIDM #10 08/01/22 07/29/22 Rx injection solution (Novolin R mL Regular U-100 Insulin) potassium chloride 20 mEq 20 meq PO BID #60 tabs 08/01/22 07/29/22 Rx tablet,extended release(part/cryst) prednisone 20 mg tablet 60 mg PO DAILY 20 days #60 tabs 08/01/22 Rx Patient History Medical History (Updated 08/01/22 @ 07:00 by Clarence Alvarez MD) Arthritis Atrial flutter Bifascicular block CAD (coronary artery disease) Cardiac pacemaker in situ Cardiomyopathy Chronic anticoagulation Chronic diastolic CHF (congestive heart failure) Chronic venous insufficiency CKD (chronic kidney disease) stage 3, GFR 30-59 ml/min Claustrophobia Closed fracture of thyroid cartilage COPD, moderate COVID-19 Depression Diabetes mellitus, type 2 insulin pump Entropion of left lower eyelid Fatty liver Gout Hyperlipidemia Hypertension Hypothyroidism Iatrogenic pulmonary embolism Interstitial lung disease Morbid obesity MRSA infection Nephrolithiasis Nocturnal hypoxemia SALAS (obstructive sleep apnea) Osteoarthritis Paroxysmal atrial fibrillation Prolonged QT interval Pulmonary embolism B/L- 5+ years ago Sarcoidosis possible- evaluated by pulmonary; felt no active sarcoidosis and would not merit steroid therapy given weight/diabetic state. Sleep apnea CPAP Solitary pulmonary nodule Tachy-sehrry syndrome Tachycardia induced cardiomyopathy "prior EF of 25% while in aflutter, subsequently normal in NSR" Surgical History H/O cardiac radiofrequency ablation H/O prior ablation treatment History of arthroscopic knee surgery History of bronchoscopy History of cataract surgery local anesthesia only per pt History of cholecystectomy History of extraction of renal calculus History of lung surgery thoracoscopy, right VATS, wedge resection History of umbilical hernia repair Hx of carpal tunnel repair Pacemaker Implanted 02/2017 secondary to Sinus node dysfunction/tachy sherry syndrome/3rd degree AVB [employer] Pacer check 12/24/17 Status post incision and drainage Family History Mother Cancer Social History Smoking Status: Never smoker Second Hand Exposure: No; Hx Alcohol Use: No Hx Substance Use: No Preferred Language: Cambodian Communication Ability: Effective Visual Impairment: Limited Hearing Ability: Normal Director Of Social Services Required: No Beliefs That Will Affect Care: None marital status: Single Current Living Situation: Custodial Current Living Situation Comment: [facility] current occupational status: retired How many Children do You have: 1 How many Children do You have Comment: children are not involved with care much per pt Feels Safe at Home: Yes Diet Comment: FLUID RESTRICTION during the past year weight has: other Assistive Devices: Walker Review of Systems Review of Systems: All systems reviewed & are unremarkable except as noted in HPI & below Physical Exam Physical Exam: General: Awake, alert and oriented x 3. No acute distress. HEENT: Normocephalic, atraumatic. Pupils equal, round and reactive to light a nd accommodation. Extraocular muscles are intact. Anicteric sclera. Moist mucous membranes. Neck: No JVD. No bruit. Cardiovascular: irregularly irregular, unable to appreciate murmur, rub or gal lop. Pulmonary: Clear to auscultation bilaterally. No rales, rhonchi, or wheezing. Abdomen: Bowel sounds x 4, soft. No rebound, guarding or tenderness. No organomegaly. Extremities: No clubbing, cyanosis or edema. +2 pedal pulses bilaterally. Skin: Warm and dry. Results & Data ([facility]) Vital Signs (Past 12 Hours) Vital Signs Temp Pulse Pulse Resp BP BP Pulse Ox 07/29/22 15:47 92 H 07/29/22 12:47 36.9 C 92 H 20 132/111 H 93 07/29/22 12:02 88 17 135/86 96 07/29/22 11:40 75 19 07/29/22 11:30 91 H 16 07/29/22 11:20 96 H 16 07/29/22 11:10 83 25 H 07/29/22 11:00 90 16 07/29/22 10:50 90 23 07/29/22 10:40 103 H 29 H 07/29/22 10:30 86 25 H 88 L 07/29/22 10:20 85 25 H 96 07/29/22 10:16 142/103 H 07/29/22 10:16 84 25 H 94 07/29/22 10:10 85 21 93 07/29/22 10:00 85 21 07/29/22 09:50 85 24 94 07/29/22 09:48 95 H 24 07/29/22 09:20 86 32 H 07/29/22 09:10 95 H 30 H 07/29/22 09:00 90 26 H 07/29/22 08:50 90 26 H 07/29/22 08:40 91 H 25 H 07/29/22 08:30 98 H 18 07/29/22 08:27 96 H 23 99 07/29/22 10:16 88 24 142/103 H 93 07/29/22 08:57 90 17 96 07/29/22 08:52 36.9 C 100 H 17 114/88 89 L O2 Del Method O2 Flow Rate 07/29/22 15:47 07/29/22 12:47 Nasal Cannula 2 07/29/22 12:02 Nasal Cannula 2 07/29/22 11:40 07/29/22 11:30 07/29/22 11:20 07/29/22 11:10 07/29/22 11:00 07/29/22 10:50 07/29/22 10:40 07/29/22 10:30 07/29/22 10:20 07/29/22 10:16 07/29/22 10:16 07/29/22 10:10 07/29/22 10:00 07/29/22 09:50 07/29/22 09:48 07/29/22 09:20 07/29/22 09:10 07/29/22 09:00 07/29/22 08:50 07/29/22 08:40 07/29/22 08:30 07/29/22 08:27 07/29/22 10:16 Nasal Cannula 3 07/29/22 08:57 Nasal Cannula 2 07/29/22 08:52 Room Air
[2022-07-29] MEDS ORDERED: ARTIFICIAL TEARS OP PRN (16:00)
[2022-07-29] MEDS ORDERED: traMADol HCL 50 MG TABLET PO PRN (16:35)
--- NOTE | 2022-07-29 17:02 | Ultrasound Report ---
ULTRASOUND OF THE CAROTID ARTERIES CLINICAL HISTORY: Right craniofacial pain, acute COMPARISON: None available at the time of this dictation. TECHNIQUE: Real-time, grayscale, and color Doppler sonography of the carotid arteries is performed. I mages are reviewed in the transverse and longitudinal planes. FINDINGS: The carotid arteries are patent bilaterally and demonstrate antegrade flow. There is mild atheroscler otic plaque on the right and mild atherosclerotic plaque on the left. Normal doppler arterial wavefor ms are seen throughout. Velocity measurements are listed below. Common carotid peak systolic velocity (cm/sec): RIGHT: 62 LEFT: 55 ICA peak systolic velocity (cm/sec): RIGHT: 55 LEFT: 61 ICA/CC peak systolic ratio: RIGHT: 0.9 LEFT: 1.1 Antegrade flow was shown in the vertebral arteries. The external carotid arteries are patent. IMPRESSION: 1. There is no sonographic evidence of hemodynamically significant stenosis in the right or left car otid arterial system. 2. Antegrade flow is shown in the vertebral arteries. Society of Radiologists in Ultrasound consensus guidelines: Normal: ICA PSV is <125 cm/sec and no plaque or intimal thickening is visible sonographically additional criteria include ICA/CCA PSV ratio <2.0 and ICA EDV <40 cm/sec <50% ICA stenosis: ICA PSV is <125 cm/sec and plaque or intimal thickening is visible sonographically additional criteria include ICA/CCA PSV ratio <2.0 and ICA EDV <40 cm/sec 50-69% ICA stenosis: ICA PSV is 125-230 cm/sec and plaque is visible sonographically additional criteria include ICA/CCA PSV ratio of 2.0-4.0 and ICA EDV of 40-100 cm/sec ?70% ICA stenosis but less than near occlusion: ICA PSV is >230 cm/sec and visible plaque and luminal narrowing are seen at dozier-scale and color Dopp ler ultrasound (the higher the Doppler parameters lie above the threshold of 230 cm/sec, the greater the likelihood of severe disease) additional criteria include ICA/CCA PSV ratio >4 and ICA EDV >100 cm/sec ACT 112: Negative or not required by law. Electronically signed by: Benji Correa M.D. 07/29/2022 5:00 PM
[2022-07-29] MEDS: DIGOXIN 0.125 MG TAB PO SCH (17:38)
[2022-07-29] MEDS: NAPHAZOLIN/PHENIRAMIN OPH SOLN 75 DROPS/5 ML BTL OP SCH ×2 (17:38→21:52)
[2022-07-29] MEDS ORDERED: LANTUS PER UNIT CHARGE SQ SCH (21:00)
[2022-07-29] MEDS ORDERED: Heparin IV Adult Wt-Based Standard *NO* Bolus Protocol IV SCH (21:13)
[2022-07-29] MEDS ORDERED: methylPREDNISolone 125 MG in SYRINGE 0 ML IV ONE (21:30)
[2022-07-29] MEDS: FUROSEMIDE 40 MG/4 ML VIAL IV SCH (21:50)
[2022-07-29] MEDS: NYSTATIN POWDER 15GM BTL EXT SCH (21:51)
[2022-07-29] MEDS: SENNA 8.6 MG TAB PO SCH (21:52)
[2022-07-29] MEDS: METOPROLOL SUCC 50MG EXT REL TAB PO SCH (21:53)
[2022-07-29] MEDS: APIXABAN 5 MG TABLET PO SCH (22:06)
[2022-07-29] MEDS: HEPARIN SODIUM/DEXTROSE 25,000 UNITS/500 ML BAG IV SCH (22:45)
[2022-07-29 23:49] LABS: Partial Thromboplastin Ratio 1.1; Partial Thromboplastin Time 31.6 Seconds (21.0-31.0)
[2022-07-30] MEDS: HEPARIN SODIUM/DEXTROSE 25,000 UNITS/500 ML BAG IV SCH ×2 (00:14→12:16)
[2022-07-30] MEDS: INSULIN ASPART PER UNIT CHARGE SQ SCH ×7 (00:47→23:26)
[2022-07-30 06:16] LABS: Hemoglobin 12.1 g/dl (14.0-18.0); Mean Corpuscular Hemoglobin 26.9 pg (25.0-34.0); Mean Corpuscular Hgb Conc 31.8 g/dL (32.0-36.0); Mean Corpuscular Volume 84.4 fL (80.0-100.0); Mean Platelet Volume 11.7 fL (9.4-12.4); Platelet Count 167 K/uL (130-400); RDW Coefficient of Variation 14.6 % (11.5-14.5); RDW Standard Deviation 44.9 fL (36.4-46.3); White Blood Count 6.73 K/ul (4.8-10.8)
[2022-07-30] MEDS: LEVOTHYROXINE SODIUM 125 MCG TABLET PO SCH (06:20)
[2022-07-30 06:41] LABS: Calcium 9.3 mg/dl (8.5-10.1); Magnesium 1.7 mg/dl (1.7-2.4); Potassium 4.4 mmol/L (3.5-5.1)
[2022-07-30 06:46] LABS: BUN Creatinine Ratio 24.3 (10-20); C Reactive Protein 3.49 mg/dl (0-0.5); Creatinine Clr Calc Pharmacy 97.2 ml/min; Est GFR (African American) 84.9 ml/min; Est GFR (Non-African American) 73.3 ml/min
[2022-07-30 06:53] LABS: Partial Thromboplastin Ratio 1.9
[2022-07-30 06:57] LABS: Partial Thromboplastin Time 51.3 Seconds (21.0-31.0)
[2022-07-30] MEDS ORDERED: LANTUS PER UNIT CHARGE SQ SCH ×2 (09:00→21:00)
[2022-07-30] MEDS: FUROSEMIDE 40 MG/4 ML VIAL IV SCH ×2 (09:09→19:49)
[2022-07-30] MEDS: allopurinoL 300 MG TAB PO SCH (09:10)
[2022-07-30] MEDS: ASPIRIN 81 MG ECTAB PO SCH (09:10)
[2022-07-30] MEDS: ATORVASTATIN 10 MG TAB PO SCH (09:11)
[2022-07-30] MEDS: GABAPENTIN 300 MG CAP PO SCH ×4 (09:11→20:23)
[2022-07-30] MEDS: DULoxetine HCL 60 MG CAP PO SCH (09:11)
[2022-07-30] MEDS: buPROPion XL 150 MG TABCR PO SCH (09:11)
[2022-07-30] MEDS: METOPROLOL SUCC 50MG EXT REL TAB PO SCH ×2 (09:12→19:50)
[2022-07-30] MEDS: MAGNESIUM OXIDE 400 MG TAB PO SCH (09:12)
[2022-07-30] MEDS: NYSTATIN POWDER 15GM BTL EXT SCH ×2 (09:13→19:50)
[2022-07-30] MEDS: PANTOprazole 40 MG TAB PO SCH (09:13)
[2022-07-30] MEDS: NAPHAZOLIN/PHENIRAMIN OPH SOLN 75 DROPS/5 ML BTL OP SCH ×3 (09:13→19:50)
[2022-07-30] MEDS: POTASSIUM CHLORIDE CRTAB 20 MEQ TABCR PO SCH (09:13)
[2022-07-30] MEDS: SENNA 8.6 MG TAB PO SCH ×2 (09:14→19:50)
[2022-07-30] MEDS: predniSONE 20 MG TAB PO SCH (09:14)
[2022-07-30] MEDS: INSULIN HUMAN NPH SC SCH (09:15)
--- NOTE | 2022-07-30 11:31 | Hospitalist Progress Note ---
Date of Service July 30, 2022 Assessment & Plan (1) Respiratory failure with hypoxia: Plan: Secondary to acute on chronic diastolic heart failure Management as below (2) Acute on chronic diastolic CHF (congestive heart failure): Plan: Admitted to ICU with telemetry status Patient presenting from [facility] for evaluation of right ear/jaw/head pain. Upon EMS arrival, patient was found to be hypoxic in the high 80s requiring 2L O2. Patient typically only wears O2 at night. Patient denies worsening shortness of breath and weight gain. Does report slight increase in LE edema. CXR shows moderate pulmonary edema ECHO 12/2021 - EF 55-60% Repeat ECHO shows normal LV chamber size with mild concentric LVH, difficult to assess accurately LV systolic function given frequent PVCs but grossly normal, poorly visualized valvular structures without significant stenosis and/or regurgitation by Doppler Received Lasix 40mg IV in the ED, will continue with Lasix 40mg IV BID Appreciate cardiology input and recommendation He has been feeling much better and has had about 3 L negative balance so far (3) Temporomandibular joint (TMJ) pain: Plan: The patient refused MRI of the temporomandibular joint Improvement in her joint pain and tenderness have improved Carotid US -unremarkable ESR, CRP-chronically elevated and may have polymyalgia rheumatica ENT consult -appreciate input and recommendation Rheumatology consult has been requested He has been on oral prednisone and symptomatically much better If biopsy is not done in the hospital he will be followed up as an outpatient with frame aligner (4) Hyperglycemia due to type 2 diabetes mellitus: Plan: hgb a1c 11.6 06/2022 glucose 312 on admission labs, no signs of DKA glycemic pharmacy consult Blood sugar is expected to be high (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 EKG showing paced rhythm with occasional PVCs (6) Pacemaker: (7) Paroxysmal atrial fibrillation: Plan: Rate controlled on metoprolol and digoxin Anticoagulated on Eliquis (8) Hypothyroidism: Plan: Continue levothyroxine (9) DVT prophylaxis: Plan: On Eliquis Admission and Anticipated Discharge Date Admission Date: July 29, 2022 Subjective 07/30/2022 The patient was seen and examined in ICU in the setting of telemetry He was admitted with pain involving the right temporomandibular joint and adjoining area of the head associated with some visual symptoms in the right side for the last 3 weeks Occasional shortness of breath with exertion Has been feeling much better since admission and denies any shortness of breath Right temporomandibular joint pain and headache have improved Review of Systems Review of Systems: All systems reviewed and are unremarkable except as noted below Physical Exam Physical Exam: Lying in bed comfortably Constitutional: well developed, well nourished, + ill appearing and + obese Eyes: PERRL, conjunctivae normal, anicteric sclerae ENMT: external ear and nose normal, oropharynx normal Neck: trachea midline, no thyromegaly Respiratory: no respiratory distress Auscultation: lungs clear to auscultation bilaterally Cardiovascular: Rate/Rhythm: + irregularly irregular Heart Sounds: normal S1 and normal S2; no murmur Extremities: + edema (1+ edema bilaterally with chronic skin changes) Gastrointestinal (Abdomen): Inspection/Auscultation: normal bowel sounds; abdomen not distended Percussion/Palpation: + abdomen tender and abdomen soft Musculoskeletal: Right temporomandibular joint tenderness and pain with movement. No other acute arthritis involving any of the joint Neurologic: normal touch/pain/proprioception and moves all extremities; no focal motor deficits Psychiatric: A+Ox3, euthymic affect Lymphatic: no cervical or axillary lymphadenopathy Results & Data Results & Data ([facility]) Vital Signs (Past 12 Hours) Vital Signs Temp Pulse Resp BP Pulse Ox 07/30/22 08:00 96 H 07/30/22 06:01 134/81 07/30/22 06:01 98 H 16 89 L 07/30/22 06:00 101 H 16 91 07/30/22 05:00 101 H 16 89 L 07/30/22 04:00 101 H 23 90 07/30/22 04:00 109/85 07/30/22 03:00 88 16 89 L 07/30/22 03:00 37.0 C 07/30/22 02:20 124/84 07/30/22 02:20 100 H 18 89 L 07/30/22 02:00 104 H 18 92 07/30/22 01:52 128/93 07/30/22 01:52 93 H 18 92 07/30/22 00:00 89 18 95 07/30/22 00:00 103 H Laboratory Results Short CBC 07/30/22 Range/Units 05:46 WBC 6.73 (4.8-10.8) K/ul Hgb 12.1 L (14.0-18.0) g/dl Hct 38.0 L (40.1-51.0) % Plt Count 167 (130-400) K/uL [facility] 07/30/22 05:46 Sodium 135 L Potassium 4.4 Chloride 102 Carbon Dioxide 30 BUN 25 H Creatinine 1.03 Glucose 283 H Calcium 9.3 Medications Administered Current Inpatient Medications Acetaminophen (Acetaminophen 325 Mg Tab) 650 mg PO Q4H PRN PRN Reason: Pain or Fever Stop: 08/28/22 12:46 Last Admin: 07/29/22 13:32 Dose: 650 mg Allopurinol (Allopurinol 300 Mg Tab) 300 mg PO DAILY OFE Stop: 08/29/22 08:59 Last Admin: 07/30/22 09:10 Dose: 300 mg Apixaban (Apixaban 5 Mg Tablet) 5 mg PO Q12 OFE Stop: 08/28/22 20:59 Last Admin: 07/29/22 22:06 Dose: Not Given Artificial Tears (Artificial Tears) 1 drops OP Q2HWA PRN PRN Reason: DRY EYES Stop: 08/28/22 15:59 Aspirin (Aspirin 81 Mg Ectab) 81 mg PO DAILY OFE Stop: 08/29/22 08:59 Last Admin: 07/30/22 09:10 Dose: 81 mg Atorvastatin Calcium (Atorvastatin 10 Mg Tab) 10 mg PO DAILY OFE Stop: 08/29/22 08:59 Last Admin: 07/30/22 09:11 Dose: 10 mg Bupropion HCl (Bupropion Xl 150 Mg Tabcr) 150 mg PO DAILY OFE Stop: 08/29/22 08:59 Last Admin: 07/30/22 09:11 Dose: 150 mg Dextrose (Dextrose 50% 50 Ml Syringe) 25 - 50 ml IV UD PRN; Protocol PRN Reason: Hypoglycemia Protocol Stop: 08/28/22 12:29 Digoxin (Digoxin 0.125 Mg Tab) 0.125 mg PO 1800 OFE Stop: 08/28/22 17:59 Last Admin: 07/29/22 17:38 Dose: 0.125 mg Duloxetine HCl (Duloxetine Hcl 60 Mg Cap) 60 mg PO DAILY OFE Stop: 08/29/22 08:59 Last Admin: 07/30/22 09:11 Dose: 60 mg Furosemide (Furosemide 40 Mg/4 Ml Vial) 40 mg IV BID [facility] Stop: 08/28/22 20:59 Last Admin: 07/30/22 09:09 Dose: 40 mg Gabapentin (Gabapentin 300 Mg Cap) 300 mg PO QID OFE Stop: 08/28/22 13:29 Last Admin: 07/30/22 09:11 Dose: 300 mg Glucagon (Glucagon For Inj 1 Mg Vial) 1 mg IM UD PRN; Protocol PRN Reason: Hypoglycemia Protocol Stop: 08/28/22 12:29 Glucose (Glucose 40% Gel 15 Gm Tube) 15 - 30 gm PO UD PRN; Protocol PRN Reason: Hypoglycemia Protocol Stop: 08/28/22 12:29 Glucose (Glucose 10 Tab/Tube) 4 - 8 tab PO UD PRN; Protocol PRN Reason: Hypoglycemia Protocol Stop: 08/28/22 12:29 Heparin Sodium/Dextrose (Heparin Sodium/Dextrose) 25,000 units in 500 mls @ 38 mls/hr IV .[id number] [facility]; Protocol Stop: 08/28/22 21:29 Last Titration: 07/30/22 07:19 Dose: 1,900 units/hr, 38 mls/hr Insulin Aspart (Insulin Aspart Per Unit) 0 units SQ ACHS [facility] Stop: 08/28/22 12:14 Last Admin: 07/30/22 08:51 Dose: 38 units Insulin Glargine (Lantus Per Unit Charge) 60 units SQ QAM [facility] Stop: 08/29/22 08:59 Last Admin: 07/30/22 08:51 Dose: 60 units Insulin Glargine (Lantus Per Unit Charge) 30 units SQ HS [facility] Stop: 08/29/22 20:59 Insulin Human NPH (Insulin Human Nph) 30 units SC QAM [facility] Stop: 08/29/22 08:59 Last Admin: 07/30/22 09:15 Dose: 30 units Levothyroxine Sodium (Levothyroxine Sodium 125 Mcg Tablet) 250 mcg PO DAILYBB [facility] Stop: 08/29/22 06:29 Last Admin: 07/30/22 06:20 Dose: 250 mcg Magnesium Oxide (Magnesium Oxide 400 Mg Tab) 400 mg PO DAILY OFE Stop: 08/29/22 08:59 Last Admin: 07/30/22 09:12 Dose: 400 mg Metoprolol Succinate (Metoprolol Succ 50mg Ext Rel Tab) 100 mg PO BID [facility] Stop: 08/28/22 20:59 Last Admin: 07/30/22 09:12 Dose: 100 mg Miscellaneous (Carbohydrates For Hypoglycemia ) 15 - 30 gm PO UD PRN PRN Reason: Hypoglycemia Treatment Stop: 08/28/22 12:29 Miscellaneous Information (Pharmacy Glycemic Mgmt Consult) 1 each N/A UD PRN; Protocol PRN Reason: Consult Stop: 08/28/22 11:11 Naphazoline HCl/Pheniramine Maleate (Naphazolin/Pheniramin Oph Soln 75 Drops/5 Ml Btl) 2 drops OP TID [facility] Stop: 08/28/22 16:59 Last Admin: 07/30/22 09:13 Dose: 2 drops Nystatin (Nystatin Powder 15gm Btl) 1 appln EXT BID [facility] Stop: 08/28/22 20:59 Last Admin: 07/30/22 09:13 Dose: 1 appln Pantoprazole Sodium (Pantoprazole 40 Mg Tab) 40 mg PO DAILY [facility] Stop: 08/29/22 08:59 Last Admin: 07/30/22 09:13 Dose: 40 mg Potassium Chloride (Potassium Chloride Crtab 20 Meq Tabcr) 20 meq PO DAILY OFE Stop: 08/29/22 08:59 Last Admin: 07/30/22 09:13 Dose: 20 meq Prednisone (Prednisone 20 Mg Tab) 60 mg PO DAILY [facility] Stop: 08/29/22 08:59 Last Admin: 07/30/22 09:14 Dose: 60 mg Sennosides (Senna 8.6 Mg Tab) 8.6 mg PO BID [facility] Stop: 08/28/22 20:59 Last Admin: 07/30/22 09:14 Dose: 8.6 mg Tramadol HCl (Tramadol Hcl 50 Mg Tablet) 50 mg PO Q4H PRN PRN Reason: Pain Stop: 08/28/22 16:34 Last Admin: 07/29/22 22:49 Dose: 50 mg (1) Hyperglycemia due to type 2 diabetes mellitus 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
--- NOTE | 2022-07-30 13:21 | Cardiology Progress Note ---
Date of Service July 30, 2022 Assessment & Plan (1) Acute on chronic diastolic CHF (congestive heart failure): (2) Respiratory failure with hypoxia: (3) Temporomandibular joint (TMJ) pain: (4) Weakness: (5) SALAS (obstructive sleep apnea): (6) History of pulmonary embolism: (7) Tachy-sherry syndrome: (8) Pacemaker: (9) Interstitial lung disease: (10) Morbid obesity: (11) Atrial flutter: (12) Sarcoidosis: (13) Tachycardia induced cardiomyopathy: Plan He continues to diurese well with now 3 L negative Would continue IV Lasix today and reevaluate volume status clinically in the a.m. Continue all other cardiac medications at this time Strict I's and O's along with daily weights on same standing scale Follow and replete electrolytes as necessary Admission and Anticipated Discharge Date Admission Date: July 29, 2022 Subjective Patient seen and examined. Chart reviewed. Telemetry reviewed. Currently out of bed in chair eating lunch. States that breathing is significantly improved since admission but not yet quite back to baseline. Review of Systems Review of Systems: All systems reviewed & are unremarkable except as noted in HPI & below Physical Exam Physical Exam: General: Awake, alert and oriented x 3. No acute distress. HEENT: Normocephalic, atraumatic. Pupils equal, round and reactive to light and accommodation. Extraocular muscles are intact. Anicteric sclera. Moist mucous membranes. Neck: No JVD. No bruit. Cardiovascular: irregularly irregular, unable to appreciate murmur, rub or gallop. Pulmonary: Clear to auscultation bilaterally. No rales, rhonchi, or wheezing. Abdomen: Bowel sounds x 4, soft. No rebound, guarding or tenderness. No organomegaly. Extremities: No clubbing, cyanosis. +2 bilateral lower extremity edema. +2 pe richard pulses bilaterally. Skin: Warm and dry. Chronic venous stasis changes of the lower extremities Results & Data ([facility]) Vital Signs (Past 12 Hours) Vital Signs Temp Pulse Resp BP Pulse Ox O2 Del Method O2 Flow Rate 07/30/22 11:22 Nasal Cannula 2 07/30/22 10:00 115 H 19 91 07/30/22 08:00 118 H 16 90 07/30/22 08:00 131/85 07/30/22 07:00 99 H 20 89 L Nasal Cannula 2 07/30/22 08:00 96 H 07/30/22 06:01 134/81 07/30/22 06:01 98 H 16 89 L 07/30/22 06:00 101 H 16 91 07/30/22 05:00 101 H 16 89 L 07/30/22 04:00 101 H 23 90 07/30/22 04:00 109/85 07/30/22 03:00 88 16 89 L 07/30/22 03:00 37.0 C 07/30/22 02:20 124/84 07/30/22 02:20 100 H 18 89 L 07/30/22 02:00 104 H 18 92 07/30/22 01:52 128/93 07/30/22 01:52 93 H 18 92
--- NOTE | 2022-07-30 16:11 | Pharmacy Report ---
Pharmacy Glycemic Short Note 2 - Date of Service July 30, 2022 - Glycemic Short BSG Results (Last 24 hours): 07/29/22 07/29/22 07/30/22 16:11 21:27 00:42 Glucose POC Glucose 256 H 181 H 153 H 07/30/22 07/30/22 07/30/22 04:11 05:46 08:17 Glucose 283 H POC Glucose 249 H 304 H* 07/30/22 07/30/22 07/30/22 08:18 11:19 11:20 Glucose POC Glucose 331 H* 318 H* 300 H OUTPATIENT ANTIDIABETIC REGIMEN: * Lantus 105 units AM + 65 units PM * Novolin R 12 units TIDM + SSI (see below) * 70 - 150 mg/dl 0 units * 151 - 199 mg/dl 5 units * 200 - 250 mg/dl 7 units * 251 - 300 mg/dl 10 units * 301 - 350 mg/dl 13 units * 351 - 400 mg/dl 15 units * >400 mg/dl 30 units ASSESSMENT: 07/30: * Patient BSG downtrended last evening but trended back up again this morning. Per RN patient has been snacking overnight * Of note breakfast BSG of 304 mg/dL was postprandial * One dose of solumedrol was given last night and prednisone 60mg was initiated this morning. * In addition to lantus dosing, NPH was added this morning to help combat the effects of the steroids * Due to snacking and post prandial BSGs it is difficult to determine at this point where the patient truly is. Will monitor trend through the evening. Can consider an IV bolus dose if BSG remains >300 this evening. 07/29: * 72-year-old male with PMH DM type II that [facility] Jaw/Head pain. Random morning BSG 312 mg/dl and POC at noon 258 mg/dl. He received Insulin regular 4 units IV in the ED. Per nursing facility, he did not receive any insulin on morning of presentation to the ED. PLAN FOR INPATIENT GLYCEMIC CONTROL: * Basal insulin * Lantus 60 units qam, 30 units qpm * NPH 30 units qam with prednisone * Bolus insulin * NovoLog per scale ACHS or Q6hrs while NPO * Goal Range: Low 110 mg/dL - High 140 mg/dL * Correction Factor: 8 mg/dL/unit * Nutritional / Prandial insulin per carb ratio of 1 unit per 2.5 grams CHO consumed
[2022-07-30] MEDS: DIGOXIN 0.125 MG TAB PO SCH (17:22)
[2022-07-31] MEDS: ACETAMINOPHEN 325 MG TAB PO PRN (00:58)
[2022-07-31] MEDS: HEPARIN SODIUM/DEXTROSE 25,000 UNITS/500 ML BAG IV SCH (02:00)
[2022-07-31] MEDS: INSULIN ASPART PER UNIT CHARGE SQ SCH ×6 (03:22→22:54)
[2022-07-31 04:57] LABS: Basophils # (auto) 0.01 K/uL (0-0.2); Basophils % (auto) 0.1 %; Hematocrit (blood only) 38.7 % (40.1-51.0); Hemoglobin 12.3 g/dl (14.0-18.0); Immature Granulocytes # (auto) 0.07 K/uL (0.00-0.02); Immature Granulocytes % (auto) 0.5 %; Lymphocytes # (auto) 1.06 K/uL (1.2-3.4); Lymphocytes % (auto) 8.3 %; Mean Corpuscular Hemoglobin 26.6 pg (25.0-34.0); Mean Corpuscular Hgb Conc 31.8 g/dL (32.0-36.0); Mean Corpuscular Volume 83.8 fL (80.0-100.0); Mean Platelet Volume 11.3 fL (9.4-12.4); Monocytes # (auto) 1.17 K/uL (0.24-0.82); Monocytes % (auto) 9.1 %; Platelet Count 209 K/uL (130-400); RDW Coefficient of Variation 14.6 % (11.5-14.5); RDW Standard Deviation 44.6 fL (36.4-46.3); Red Blood Count 4.62 M/uL (4.63-6.08); White Blood Count 12.81 K/ul (4.8-10.8)
[2022-07-31 05:25] LABS: Partial Thromboplastin Ratio 2.3
[2022-07-31 05:28] LABS: Partial Thromboplastin Time 63.6 Seconds (21.0-31.0)
[2022-07-31 05:31] LABS: BUN Creatinine Ratio 30.1 (10-20); Calcium 9.8 mg/dl (8.5-10.1); Creatinine Clr Calc Pharmacy 88.6 ml/min; Est GFR (African American) 75.9 ml/min; Est GFR (Non-African American) 65.5 ml/min; Magnesium 2.1 mg/dl (1.7-2.4); Potassium 4.2 mmol/L (3.5-5.1)
--- NOTE | 2022-07-31 05:53 | Electrocardiogram Report ---
Test Reason : Blood Pressure : / mmHG Vent. Rate : 096 BPM Atrial Rate : 097 BPM P-R Int : 262 ms QRS Dur : 160 ms QT Int : 424 ms P-R-T Axes : 000 -80 078 degrees QTc Int : 535 ms Poor data quality, interpretation may be adversely affected Atrial-paced rhythm with prolonged AV conduction Right bundle branch block Left anterior fascicular block Bifascicular block Possible Anterolateral infarct , age undetermined Cannot rule out Inferior infarct (cited on or before 17-JUN-2022) Abnormal ECG When compared with ECG of 17-JUN-2022 05:22, Electronic atrial pacemaker has replaced Atrial fibrillation Borderline criteria for Anterolateral infarct are now Present Confirmed by Reinier Reese ([id number]) on 07/31/2022 5:53:00 AM Referred By: REFERRED SELF Confirmed By:Reinier Reese
[2022-07-31] MEDS: LEVOTHYROXINE SODIUM 125 MCG TABLET PO SCH (06:20)
[2022-07-31] MEDS: INSULIN HUMAN NPH SC SCH (07:51)
[2022-07-31] MEDS: FUROSEMIDE 40 MG/4 ML VIAL IV SCH ×2 (07:55→21:31)
[2022-07-31] MEDS: GABAPENTIN 300 MG CAP PO SCH ×4 (07:56→21:31)
[2022-07-31] MEDS: SENNA 8.6 MG TAB PO SCH ×2 (07:56→21:32)
[2022-07-31] MEDS: ASPIRIN 81 MG ECTAB PO SCH (07:57)
[2022-07-31] MEDS: allopurinoL 300 MG TAB PO SCH (07:57)
[2022-07-31] MEDS: buPROPion XL 150 MG TABCR PO SCH (07:57)
[2022-07-31] MEDS: DULoxetine HCL 60 MG CAP PO SCH (07:57)
[2022-07-31] MEDS: MAGNESIUM OXIDE 400 MG TAB PO SCH (07:57)
[2022-07-31] MEDS: PANTOprazole 40 MG TAB PO SCH (07:57)
[2022-07-31] MEDS: predniSONE 20 MG TAB PO SCH (07:57)
[2022-07-31] MEDS: POTASSIUM CHLORIDE CRTAB 20 MEQ TABCR PO SCH (07:57)
[2022-07-31] MEDS: ATORVASTATIN 10 MG TAB PO SCH (07:57)
[2022-07-31] MEDS: NYSTATIN POWDER 15GM BTL EXT SCH ×2 (07:58→21:31)
[2022-07-31] MEDS: NAPHAZOLIN/PHENIRAMIN OPH SOLN 75 DROPS/5 ML BTL OP SCH ×3 (07:58→21:32)
--- NOTE | 2022-07-31 08:34 | Rheumatology Consultation ---
Rheumatology Consultation DOS July 31, [address] Vigil Attending Physician Dr Vigil Reason for Consultation ? GCA Assessment & Plan (1) Serologic abnormality: see below (2) Temporomandibular joint (TMJ) pain: see below (3) GCA (giant cell arteritis): there is a strong suspicion for giant cell arteritis given his rapid resolution of right-sided headaches , scalp tenderness and jaw pain with 60 mg of prednisone. will wait temporal artery biopsies and would recommend biopsying both sides. Continue 60 mg of prednisone at discharge. Would likely need this dose for least 2 weeks. Case was discussed with Dr. Vigil Plan 1. await temporal artery biopsies - bilateral recommended 2. continue pred 60mg daily 3. please order hep b surface antigen, hep b surface antibody, hep B core Igm, Igg, hep C antibody, quantiferron gold TB testing 4. I will arrange outpatient rheumatology follow up 5. thank you for the consult and invovling me in this patient's care History of Present Illness Reason for Consultation: ? GCA Requesting Physician: Dr Vigil Attending Physician: Mariah Vigil MD History of Present Illness Marcial is a 72-year-old gentleman who was admitted the other day with ongoing right-sided headaches, jaw pain, visual changes along with shortness of breath, worsening edema and hypoxemia. I did see him the evening of July 29 but did the documentation the following day As I was having trouble loading the consultation note. His oxygen saturations were below 90% when he was brought to the emergency room. In reviewing the admission H&P he has reported ongoing headaches for a week or so that were pretty severe. He denies any sudden vision loss more of visual changes and tearing. In speaking with the hospitalist Dr. Vigil the patient reported several weeks of right-sided headache. When I asked them he said it has been going on for almost 2 months. He was seen by ENT in the emergency room and there was a question of giant cell arteritis given his age, complaints an elevated sed rate above 90. Unfortunately his sed rate has been significantly elevated for many years and he has several health conditions including obesity diabetes and age which could all be contributing. He is on a blood thinner so that is been held in preparation for possible temporal artery biopsy. He was placed on oral prednisone 60 mg daily on the night of admissions and the following day he reports complete resolution of the right-sided headaches and scalp tenderness. The jaw pain is also better. No visual concerns. He denied any night sweats or unintentional weight loss. He has had ongoing joint pains especially is hands for many years. His breathing is much better today as well. He reports that he is feeling much better to his normal state of health. He denies any family history of autoimmune diseases. He denies any recent rashes. He denies any inflammatory arthritis. He is aware that he might be getting a artery biopsy before he leaves the hospital. He is currently on oxygen and heparin drip. Allergies Allergy/AdvReac Type Severity Reaction Status Date / Time No Known Allergies Allergy Verified 06/15/22 15:07 Home Medications Medication Instructions Recorded Confirmed Type Vancomycin Fortified 10mg/Ml 1 drp OPB QID 06/15/22 07/29/22 History acetaminophen 325 mg tablet 650 mg PO Q4 PRN Fever Or Pain 06/15/22 07/29/22 History (Tylenol) albuterol sulfate 90 mcg/actuation 2 puff inhalation Q4 PRN Shortness 06/15/22 07/29/22 History aerosol inhaler Of Breath Or Wheezing allopurinol 300 mg tablet 300 mg PO DAILY 06/15/22 07/29/22 History apixaban 5 mg tablet 5 mg PO Q12 06/15/22 07/29/22 History aspirin 81 mg tablet,delayed 81 mg PO DAILY 06/15/22 07/29/22 History release atorvastatin 10 mg tablet 10 mg PO DAILY 06/15/22 07/29/22 History bupropion HCl 150 mg 24 hr tablet, 150 mg PO DAILY 06/15/22 07/29/22 History extended release cholecalciferol (vitamin D3) 25 50 mcg PO DAILY 06/15/22 07/29/22 History mcg (1,000 unit) tablet (Vitamin D3) digoxin 125 mcg (0.125 mg) tablet 125 mcg PO DAILY 06/15/22 07/29/22 History duloxetine 60 mg capsule,delayed 60 mg PO DAILY 06/15/22 07/29/22 History release epinephrine 0.3 mg/0.3 mL 0.3 mg IM DIRECTED PRN Allergic 06/15/22 07/29/22 History injection, auto-injector Reaction erythromycin 5 mg/gram (0.5 %) eye 1 applic OPB DIRECTED 06/15/22 07/29/22 History ointment gabapentin 300 mg capsule 300 mg PO QID 06/15/22 07/29/22 History insulin regular human 100 unit/mL 12 unit subcut TIDM 06/15/22 07/29/22 History injection solution (Novolin R Regular U-100 Insulin) levothyroxine 125 mcg tablet 250 mcg PO DAILY 06/15/22 07/29/22 History lidocaine 5 % topical patch 1 patch topical DAILY 06/15/22 07/29/22 History loratadine 10 mg tablet 20 mg PO DAILY PRN .allergies 06/15/22 07/29/22 History magnesium oxide 420 mg tablet 420 mg PO DAILY 06/15/22 07/29/22 History multivitamin 1 tab PO DAILY 06/15/22 07/29/22 History naphazoline 0.025 %-pheniramine 2 drp ophthalmic (eye) Q6 PRN .. 06/15/22 07/29/22 History 0.3 % eye drops (Naphcon-A) nitroglycerin 0.4 mg sublingual 0.4 mg sublingual DIRECTED PRN 06/15/22 07/29/22 History tablet (Nitrostat) Chest Pain nystatin 100,000 unit/gram topical 1 applic topical BID 06/15/22 07/29/22 History powder omeprazole 20 mg capsule,delayed 20 mg PO DAILY 06/15/22 07/29/22 History release polyvinyl alcohol-povidone (PF) 1 drp OPB DIRECTED 06/15/22 07/29/22 History 1.4 %-0.6 % eye drops in a dropperette (Refresh Classic (PF)) potassium chloride 20 mEq 20 meq PO DAILY 06/15/22 07/29/22 History tablet,extended release(part/cryst) sennosides 8.6 mg tablet (senna) 8.6 mg PO BID 06/15/22 07/29/22 History furosemide 40 mg tablet 40 mg PO QAM #30 tabs 06/23/22 07/29/22 Rx metoprolol succinate 50 mg 100 mg PO BID #60 tabs 06/23/22 07/29/22 Rx tablet,extended release 24 hr insulin glargine 100 unit/mL 65 unit subcut PM 07/29/22 07/29/22 History subcutaneous solution insulin glargine 100 unit/mL 105 unit subcut DAILY 07/29/22 07/29/22 History subcutaneous solution insulin regular human 100 unit/mL 1 sliding scale dose subcut 07/29/22 07/29/22 History (3 mL) subcutaneous pen (Novolin R USEASDIRECTD FlexPen) Patient History Medical History Arthritis Atrial flutter Bifascicular block CAD (coronary artery disease) Cardiac pacemaker in situ Cardiomyopathy Chronic anticoagulation Chronic diastolic CHF (congestive heart failure) Chronic venous insufficiency CKD (chronic kidney disease) stage 3, GFR 30-59 ml/min Claustrophobia Closed fracture of thyroid cartilage COPD, moderate COVID-19 Depression Diabetes mellitus, type 2 insulin pump Entropion of left lower eyelid Fatty liver Gout Hyperlipidemia Hypertension Hypothyroidism Iatrogenic pulmonary embolism Interstitial lung disease Morbid obesity MRSA infection Nephrolithiasis Nocturnal hypoxemia SALAS (obstructive sleep apnea) Osteoarthritis Paroxysmal atrial fibrillation Prolonged QT interval Pulmonary embolism B/L- 5+ years ago Sarcoidosis possible- evaluated by pulmonary; felt no active sarcoidosis and would not merit steroid therapy given weight/diabetic state. Sleep apnea CPAP Solitary pulmonary nodule Tachy-sherry syndrome Tachycardia induced cardiomyopathy "prior EF of 25% while in aflutter, subsequently normal in NSR" Surgical History H/O cardiac radiofrequency ablation H/O prior ablation treatment History of arthroscopic knee surgery History of bronchoscopy History of cataract surgery local anesthesia only per pt History of cholecystectomy History of extraction of renal calculus History of lung surgery thoracoscopy, right VATS, wedge resection History of umbilical hernia repair Hx of carpal tunnel repair Pacemaker Implanted 02/2017 secondary to Sinus node dysfunction/tachy sherry syndrome/3rd degree AVB [employer] Pacer check 12/24/17 Status post incision and drainage Family History Mother Cancer Social History Smoking Status: Never smoker Second Hand Exposure: No; Hx Alcohol Use: No Hx Substance Use: No Preferred Language: Japanese Communication Ability: Effective Visual Impairment: Limited Hearing Ability: Normal Facing Cutting Machine Operator Required: No Beliefs That Will Affect Care: None marital status: Single Current Living Situation: [facility] Current Living Situation Comment: [facility] current occupational status: retired How many Children do You have: 1 How many Children do You have Comment: children are not involved with care much per pt Feels Safe at Home: Yes Safety Concerns: Feels Safe At This Time Diet Comment: FLUID RESTRICTION during the past year weight has: other Assistive Devices: Walker Review of Systems Constitutional: fatigue Eyes: blurry vision Ear, Nose, Mouth, Throat: headaches, scalp tenderness, right sided jaw pain Respiratory: WHITE Cardiovascular: Additional Comments: edema Gastrointestinal: none Musculoskeletal: joint pains Integumentary: no rashes Physical Exam Constitutional: examined sitting in chair, comfortable, not SOB, no pain or acute distress ENMT: no scalp tenderness, good pulses to both temporal arteries Respiratory: decreased breath sounds at bases but otherwise clear Cardiovascular: reg, + S1 and S2 Gastrointestinal (Abdomen): obese, soft, NT + BS Musculoskeletal: no synovitis noted to the hands. some discomfort with palpation to PIPs both hands Skin: no rashes Results & Data ([facility]) Vital Signs (Past 12 Hours) Vital Signs Temp Pulse Resp BP Pulse Ox O2 Del Method O2 Flow Rate 07/31/22 06:01 83 13 94 07/31/22 06:01 141/91 H 07/31/22 06:00 82 23 94 07/31/22 05:00 88 17 94 07/31/22 04:01 77 20 95 07/31/22 04:01 101/57 L 07/31/22 04:00 83 20 96 07/31/22 03:00 88 20 07/31/22 02:00 85 20 95 07/31/22 02:00 124/70 07/31/22 01:00 111 H 20 93 07/31/22 01:00 131/100 07/31/22 00:00 92 H 20 91 07/31/22 03:00 37.0 C 07/30/22 20:30 Nasal Cannula 2 07/30/22 23:00 95 H 15 120/81 92 07/30/22 22:00 104 H 17 115/71 91 07/30/22 23:00 36.9 C 07/30/22 21:00 108 H 20 91 Laboratory Results Reviewed
[2022-07-31] MEDS ORDERED: LANTUS PER UNIT CHARGE SQ SCH ×2 (09:00→21:00)
[2022-07-31] MEDS: METOPROLOL SUCC 50MG EXT REL TAB PO SCH ×2 (09:01→21:30)
--- NOTE | 2022-07-31 11:57 | Hospitalist Progress Note ---
Date of Service July 31, 2022 Assessment & Plan (1) Respiratory failure with hypoxia: Plan: Secondary to acute on chronic diastolic heart failure Management as below (2) Acute on chronic diastolic CHF (congestive heart failure): Plan: Admitted to ICU with telemetry status Patient presenting from [facility] for evaluation of right ear/jaw/head pain. Upon EMS arrival, patient was found to be hypoxic in the high 80s requiring 2L O2. Patient typically only wears O2 at night. Patient denies worsening shortness of breath and weight gain. Does report slight increase in LE edema. CXR shows moderate pulmonary edema ECHO 12/2021 - EF 55-60% Repeat ECHO shows normal LV chamber size with mild concentric LVH, difficult to assess accurately LV systolic function given frequent PVCs but grossly normal, poorly visualized valvular structures without significant stenosis and/or regurgitation by Doppler Received Lasix 40mg IV in the ED, will continue with Lasix 40mg IV BID Appreciate cardiology input and recommendation He has been feeling much better and has had about 3 L negative balance so far Remains stable hemodynamically and denies any cardiac symptoms (3) Temporomandibular joint (TMJ) pain: Plan: The patient refused MRI of the temporomandibular joint Improvement in her joint pain and tenderness have improved Carotid US -unremarkable ESR, CRP-chronically elevated and may have polymyalgia rheumatica ENT consult -appreciate input and recommendation Rheumatology consult has been requested He has been on oral prednisone and symptomatically much better If biopsy is not done in the hospital he will be followed up as an outpatient with event planner Appreciate rheumatology input and recommendation-Will have hepatitis B and hepatitis C studies and also TB test He will have biopsy of the temporal artery preferably both sides at around 4 PM today Likely discharge tomorrow Heparin is on hold from 10 AM (4) Hyperglycemia due to type 2 diabetes mellitus: Plan: hgb a1c 11.6 06/2022 glucose 312 on admission labs, no signs of DKA glycemic pharmacy consult Blood sugar is expected to be high (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 EKG showing paced rhythm with occasional PVCs (6) Pacemaker: (7) Paroxysmal atrial fibrillation: Plan: Rate controlled on metoprolol and digoxin Anticoagulated on Eliquis (8) Hypothyroidism: Plan: Continue levothyroxine (9) DVT prophylaxis: Plan: On Eliquis as an outpatient Admission and Anticipated Discharge Date Admission Date: July 29, 2022 Subjective 07/30/2022 The patient was seen and examined in ICU in the setting of telemetry He was admitted with pain involving the right temporomandibular joint and adjoining area of the head associated with some visual symptoms in the right side for the last 3 weeks Occasional shortness of breath with exertion Has been feeling much better since admission and denies any shortness of breath Right temporomandibular joint pain and headache have improved 07/31/2022 The patient was seen and examined in ICU in the setting of telemetry unit He has been feeling much better Headache is improved and there is no visual symptoms Denies any shortness of breath, chest pain and/or palpitation Review of Systems Review of Systems: All systems reviewed and are unremarkable except as noted below Physical Exam Physical Exam: Sitting at the side of the bed without much discomfort Constitutional: well developed, well nourished, + ill appearing and + obese Eyes: PERRL, conjunctivae normal, anicteric sclerae ENMT: external ear and nose normal, oropharynx normal Neck: trachea midline, no thyromegaly Respiratory: no respiratory distress Auscultation: lungs clear to auscultation bilaterally Cardiovascular: Rate/Rhythm: + irregularly irregular Heart Sounds: normal S1 and normal S2; no murmur Extremities: + edema (1+ edema bilaterally with chronic skin changes) Gastrointestinal (Abdomen): Inspection/Auscultation: normal bowel sounds; abdomen not distended Percussion/Palpation: + abdomen tender and abdomen soft Musculoskeletal: No acute arthritis involving any of the joint Neurologic: normal touch/pain/proprioception and moves all extremities; no focal motor deficits Psychiatric: A+Ox3, euthymic affect Lymphatic: no cervical or axillary lymphadenopathy Results & Data Results & Data ([facility]) Vital Signs (Past 12 Hours) Vital Signs Temp Pulse Resp BP Pulse Ox O2 Del Method O2 Flow Rate 07/31/22 09:02 79 22 96 07/31/22 09:02 127/74 07/31/22 09:00 79 20 95 Nasal Cannula 2 07/31/22 08:01 71 17 93 07/31/22 08:01 134/74 07/31/22 08:00 80 16 93 07/31/22 07:00 93 H 22 93 07/31/22 08:00 Nasal Cannula 2 07/31/22 08:00 79 07/31/22 06:01 83 13 94 07/31/22 06:01 141/91 H 07/31/22 06:00 82 23 94 07/31/22 05:00 88 17 94 07/31/22 04:01 77 20 95 07/31/22 04:01 101/57 L 07/31/22 04:00 83 20 96 07/31/22 03:00 88 20 07/31/22 02:00 85 20 95 07/31/22 02:00 124/70 07/31/22 01:00 111 H 20 93 07/31/22 01:00 131/100 07/31/22 00:00 92 H 20 91 07/31/22 03:00 37.0 C Laboratory Results Short CBC 07/31/22 Range/Units 04:16 WBC 12.81 H (4.8-10.8) K/ul Hgb 12.3 L (14.0-18.0) g/dl Hct 38.7 L (40.1-51.0) % Plt Count 209 (130-400) K/uL BMP 07/31/22 04:16 Sodium 136 Potassium 4.2 Chloride 100 Carbon Dioxide 30 BUN 34 H Creatinine 1.13 Glucose 216 H Calcium 9.8 Medications Administered Current Inpatient Medications Acetaminophen (Acetaminophen 325 Mg Tab) 650 mg PO Q4H PRN PRN Reason: Pain or Fever Stop: 08/28/22 12:46 Last Admin: 07/31/22 00:58 Dose: 650 mg Allopurinol (Allopurinol 300 Mg Tab) 300 mg PO DAILY [facility] Stop: 08/29/22 08:59 Last Admin: 07/31/22 07:57 Dose: 300 mg Apixaban (Apixaban 5 Mg Tablet) 5 mg PO Q12 OFE Stop: 08/28/22 20:59 Last Admin: 07/29/22 22:06 Dose: Not Given Artificial Tears (Artificial Tears) 1 drops OP Q2HWA PRN PRN Reason: DRY EYES Stop: 08/28/22 15:59 Aspirin (Aspirin 81 Mg Ectab) 81 mg PO DAILY [facility] Stop: 08/29/22 08:59 Last Admin: 07/31/22 07:57 Dose: 81 mg Atorvastatin Calcium (Atorvastatin 10 Mg Tab) 10 mg PO DAILY [facility] Stop: 08/29/22 08:59 Last Admin: 07/31/22 07:57 Dose: 10 mg Bupropion HCl (Bupropion Xl 150 Mg Tabcr) 150 mg PO DAILY [facility] Stop: 08/29/22 08:59 Last Admin: 07/31/22 07:57 Dose: 150 mg Dextrose (Dextrose 50% 50 Ml Syringe) 25 - 50 ml IV UD PRN; Protocol PRN Reason: Hypoglycemia Protocol Stop: 08/28/22 12:29 Digoxin (Digoxin 0.125 Mg Tab) 0.125 mg PO 1800 [facility] Stop: 08/28/22 17:59 Last Admin: 07/30/22 17:22 Dose: 0.125 mg Duloxetine HCl (Duloxetine Hcl 60 Mg Cap) 60 mg PO DAILY [facility] Stop: 08/29/22 08:59 Last Admin: 07/31/22 07:57 Dose: 60 mg Furosemide (Furosemide 40 Mg/4 Ml Vial) 40 mg IV BID [facility] Stop: 08/28/22 20:59 Last Admin: 07/31/22 07:55 Dose: 40 mg Gabapentin (Gabapentin 300 Mg Cap) 300 mg PO QID [facility] Stop: 08/28/22 13:29 Last Admin: 07/31/22 07:56 Dose: 300 mg Glucagon (Glucagon For Inj 1 Mg Vial) 1 mg IM UD PRN; Protocol PRN Reason: Hypoglycemia Protocol Stop: 08/28/22 12:29 Glucose (Glucose 40% Gel 15 Gm Tube) 15 - 30 gm PO UD PRN; Protocol PRN Reason: Hypoglycemia Protocol Stop: 08/28/22 12:29 Glucose (Glucose 10 Tab/Tube) 4 - 8 tab PO UD PRN; Protocol PRN Reason: Hypoglycemia Protocol Stop: 08/28/22 12:29 Heparin Sodium/Dextrose (Heparin Sodium/Dextrose) 25,000 units in 500 mls @ 0 mls/hr IV .Q0M [facility]; Protocol Stop: 08/28/22 21:29 Last Titration: 07/31/22 09:57 Dose: 0 units/hr, 0 mls/hr Insulin Aspart (Insulin Aspart Per Unit) 0 units SQ ACHS [facility] Stop: 08/28/22 12:14 Last Admin: 07/31/22 07:48 Dose: 30 units Insulin Glargine (Lantus Per Unit Charge) 30 units SQ HS [facility] Stop: 08/29/22 20:59 Last Admin: 07/30/22 19:54 Dose: 30 units Insulin Glargine (Lantus Per Unit Charge) 70 units SQ QAM [facility] Stop: 08/29/22 08:59 Last Admin: 07/31/22 07:49 Dose: 70 units Insulin Human NPH (Insulin Human Nph) 30 units SC QAM [facility] Stop: 08/29/22 08:59 Last Admin: 07/31/22 07:51 Dose: 30 units Levothyroxine Sodium (Levothyroxine Sodium 125 Mcg Tablet) 250 mcg PO DAILYBB [facility] Stop: 08/29/22 06:29 Last Admin: 07/31/22 06:20 Dose: 250 mcg Magnesium Oxide (Magnesium Oxide 400 Mg Tab) 400 mg PO DAILY [facility] Stop: 08/29/22 08:59 Last Admin: 07/31/22 07:57 Dose: 400 mg Metoprolol Succinate (Metoprolol Succ 50mg Ext Rel Tab) 100 mg PO BID [facility] Stop: 08/28/22 20:59 Last Admin: 07/31/22 09:01 Dose: 100 mg Miscellaneous (Carbohydrates For Hypoglycemia ) 15 - 30 gm PO UD PRN PRN Reason: Hypoglycemia Treatment Stop: 08/28/22 12:29 Miscellaneous Information (Pharmacy Glycemic Mgmt Consult) 1 each N/A UD PRN; Protocol PRN Reason: Consult Stop: 08/28/22 11:11 Naphazoline HCl/Pheniramine Maleate (Naphazolin/Pheniramin Oph Soln 75 Drops/5 Ml Btl) 2 drops OP TID [facility] Stop: 08/28/22 16:59 Last Admin: 07/31/22 07:58 Dose: 2 drops Nystatin (Nystatin Powder 15gm Btl) 1 appln EXT BID [facility] Stop: 08/28/22 20:59 Last Admin: 07/31/22 07:58 Dose: 1 appln Pantoprazole Sodium (Pantoprazole 40 Mg Tab) 40 mg PO DAILY [facility] Stop: 08/29/22 08:59 Last Admin: 07/31/22 07:57 Dose: 40 mg Potassium Chloride (Potassium Chloride Crtab 20 Meq Tabcr) 20 meq PO DAILY [facility] Stop: 08/29/22 08:59 Last Admin: 07/31/22 07:57 Dose: 20 meq Prednisone (Prednisone 20 Mg Tab) 60 mg PO DAILY [facility] Stop: 08/29/22 08:59 Last Admin: 07/31/22 07:57 Dose: 60 mg Sennosides (Senna 8.6 Mg Tab) 8.6 mg PO BID [facility] Stop: 08/28/22 20:59 Last Admin: 07/31/22 07:56 Dose: 8.6 mg Tramadol HCl (Tramadol Hcl 50 Mg Tablet) 50 mg PO Q4H PRN PRN Reason: Pain Stop: 08/28/22 16:34 Last Admin: 07/29/22 22:49 Dose: 50 mg (1) Hyperglycemia due to type 2 diabetes mellitus Diabetes mellitus [facility] insulin use: with long term care administrator use Qualified Code(s): E11.65 - Type 2 diabetes mellitus with hyperglycemia; Z79.4 - nursing home (current) use of insulin (2) Hypothyroidism Hypothyroidism type: unspecified Qualified Code(s): E03.9 - Hypothyroidism, unspecified
--- NOTE | 2022-07-31 16:39 | Cardiology Progress Note ---
Date of Service July 31, 2022 Assessment & Plan (1) Acute on chronic diastolic CHF (congestive heart failure): (2) Respiratory failure with hypoxia: (3) Temporomandibular joint (TMJ) pain: (4) Weakness: (5) SALAS (obstructive sleep apnea): (6) History of pulmonary embolism: (7) Tachy-sherry syndrome: (8) Pacemaker: (9) Interstitial lung disease: (10) Morbid obesity: (11) Atrial flutter: (12) Sarcoidosis: (13) Tachycardia induced cardiomyopathy: Plan He continues to diurese well with now 3 L negative Would continue IV Lasix today and reevaluate volume status clinically in the a.m. Continue all other cardiac medications at this time Strict I's and O's along with daily weights on same standing scale Follow and replete electrolytes as necessary Admission and Anticipated Discharge Date Admission Date: July 29, 2022 Subjective Pt seen and examined. Chart reviewed. Telemetry reviewed. States that his breathing is improving with diuresis. Review of Systems Review of Systems: All systems reviewed & are unremarkable except as noted in HPI & below Physical Exam Physical Exam: General: Awake, alert and oriented x 3. No acute distress. HEENT: Normocephalic, atraumatic. Pupils equal, round and reactive to light and accommodation. Extraocular muscles are intact. Anicteric sclera. Moist mucous membranes. Neck: No JVD. No bruit. Cardiovascular: irregularly irregular, unable to appreciate murmur, rub or gallop. Pulmonary: Clear to auscultation bilaterally. No rales, rhonchi, or wheezing. Abdomen: Bowel sounds x 4, soft. No rebound, guarding or tenderness. No organomegaly. Extremities: No clubbing, cyanosis. +2 bilateral lower extremity edema. +2 pedal pulses bilaterally. Skin: Warm and dry. Chronic venous stasis changes of the lower extremities Results & Data ([facility]) Vital Signs (Past 12 Hours) Vital Signs Temp Pulse Resp BP Pulse Ox O2 Del Method O2 Flow Rate 07/31/22 15:37 87 20 91 07/31/22 15:37 125/84 07/31/22 15:00 75 16 93 07/31/22 14:00 82 18 07/31/22 13:00 81 18 90 07/31/22 15:50 37 C 07/31/22 12:08 116/80 07/31/22 12:08 76 20 92 07/31/22 12:00 96 H 21 90 Room Air 07/31/22 11:00 79 24 93 07/31/22 10:00 77 21 90 07/31/22 12:11 36.8 C 07/31/22 09:02 79 22 96 07/31/22 09:02 127/74 07/31/22 09:00 79 20 95 Nasal Cannula 2 07/31/22 08:01 71 17 93 07/31/22 08:01 134/74 07/31/22 08:00 80 16 93 07/31/22 07:00 93 H 22 93 07/31/22 08:00 Nasal Cannula 2 07/31/22 08:00 79 07/31/22 06:01 83 13 94 07/31/22 06:01 141/91 H 07/31/22 06:00 82 23 94 07/31/22 05:00 88 17 94
[2022-07-31] MEDS: DIGOXIN 0.125 MG TAB PO SCH (20:11)
[2022-08-01 05:08] LABS: Partial Thromboplastin Ratio 1.1; Partial Thromboplastin Time 29.3 Seconds (21.0-31.0)
[2022-08-01] MEDS: INSULIN ASPART PER UNIT CHARGE SQ SCH ×4 (05:47→16:53)
[2022-08-01] MEDS: LEVOTHYROXINE SODIUM 125 MCG TABLET PO SCH (05:48)
--- NOTE | 2022-08-01 06:30 | ENT Consultation ---
Date of Consultation August 01, 2022 Assessment & Plan (1) GCA (giant cell arteritis): (2) Temporomandibular joint (TMJ) pain: (3) Vision abnormalities: (4) Chronic anticoagulation: Plan Mr. Andujar is a 72 year old gentleman with diabetes, tachybradycardia syndrome s/p pacemaker originally in 1992, atrial fibrillation on Eliquis, diastolic heart failure who is admitted for heart failure exacerbation after initially presenting to the Emergency department for right ear and jaw pain. He is diffusely tender which tends to follow the distribution of the branches of his external carotid arteries with migrating pain and intermittent changes in his vision, but with an otherwise normal exam. He is having changes in his vision that are beyond the blurring that he experiences from epiphora, and in combination with right facial pain, headaches, and elevated inflammatory markers, it may be worthwhile to treat him empirically while pursuing temporal artery biopsy or another test that could potentially evaluate and diagnose giant cell arteritis despite treatment with systemic steroids. ENT will follow up the MRI results and has some availability for the biopsy if we could be of service. Supervising Physician Co-Signing Physician Notes 72-year-old man presents with acute right facial pain and right-sided temporal headache for the last 3 weeks. The pain is persistent. He denies any fevers chills or other respiratory symptoms. He specifically denies any shortness of breath but does report increased exercise intolerance over the past couple of weeks. He does take Lasix daily and has been compliant with his meds. Notably EMS found him hypoxic at 88% which was improved with a small amount of oxygen supplementation. Patient typically only wears oxygen at night. The patient is morbidly obese and reports his weight is stable. Volume status is difficult to ascertain secondary to his body habitus but overall he appears euvolemic. He also has chronic eye irritation and has been on antibiotic eyedrops for the last 2 years with intermittent use of Visine. His eyes appear irritated today. Physical exam he is a morbidly obese man in no acute distress. He has normal respiratory effort on minimal oxygen supplementation via nasal cannula. He is clear and mentating well, able to give a good history. HEENT exam reveals tenderness to palpation of the right TMJ externally and internally. There is no palpable or tender lymph nodes in the submandibular or cervical space. There is no enlarged parotid gland. External auditory canals with some cerumen but tympanic membrane on the right is clear and no middle ear fluid is seen. Bilateral conjunctivae are irritated and eyes are watery. Cardiac exam reveals S1/S2 heard with regular rate and rhythm. There is no evidence of murmurs gallops or rubs. Lungs are clear to auscultation throughout and he has good breath sounds throughout with normal respiratory effort. He has no peripheral edema or swelling. Work-up today includes CBC with a normal white blood cell count, H&H that is slightly lower than his baseline but not by much at 11.8/38, platelet count is normal. An ESR is elevated at 83 with a CRP of 3.52. Glucose was elevated on arrival to 312 despite him taking his morning insulin. BNP is slightly elevated at 198. Nasal swab for SARS-CoV-2, flu, RSV is negative. Chest x-ray revealed cardiomegaly and moderate pulmonary edema. Head CT without contrast revealed no acute intracranial abnormality. Carotid Doppler was ordered with read pending. An MRI TMJ was ordered however radiology refused this to be done as inpatient. An MRI brain and MRA of the head was ordered instead. Overall this is man who presents with acute right facial pain ongoing for the last 3 weeks with an incidental finding of pulmonary edema and minimal hypoxia. Agree with IV diuretic for the time being and cardiology consult. For the facial pain he is already on gabapentin which is clearly not helping at 300mg QID. Can consider increasing this, however, for now will give additional narcotic pain medication. Etiologies include but are not limited to trigeminal neuralgia from inflammation or other vascular processes, tumors, or ophthalmic conjunctivitis (eyes are injected and watery but this is bilateral, arterial compression of the trigeminal nerve root from cerebellar arteries or vertebral artery, veins, MS (nerve demyelination), temporal arteritis. He does have an elevation in inflammatory markers which we will trend in AM. If MRI brain is negative, consider GCA and temporal artery biopsy. Would also consider n eurologic consult to weigh in as there are no visual symptoms and this may just be consistent with TMJ disorder. ENT has been consulted, appreciate recommendations. Cont pain control efforts overnight. DO Pete History of Present Illness Reason for Consultation: Temporomandibular Joint Disorder Attending Physician: Mariah Vigil MD History of Present Illness Mr. Andujar is a 72 year old gentleman with diabetes, tachybradycardia syndrome s/p pacemaker originally in 1992, atrial fibrillation on Eliquis, diastolic heart failure who is admitted for heart failure exacerbation after initially presenting to the Emergency department for right ear and jaw pain. It has been ongoing for 1-2 weeks, is associated with increased redness of his eyes that is more often bilateral, and will migrate along his head, forehead, and into his jaw and neck, sometimes during which his eyes will water and his vision will deteriorate. He is edentulous but has had his jaw lock up in what sounds similar to bruxism with the most recent episode being just over a year prior. He denies ear infections, though has had ear pain during exacerbative episodes of the ongoing symptoms, recent trauma, migraines, ulcers or lesions in his mouth, prior scalp and periaural cutaneous malignancy, and a history of head and neck radiation. He last saw his money manager several months prior but not more recently with the onset of his current symptoms. He additionally reports exertional shortness at baseline, lower extremity edema, and intermittent nonproductive cough. He underewent a head CT which is reviewed and interpreted showing normal bony anatomy of what is visualized of the forehead, calvarium, and face with condyles that are well seated within the temporal bone and no evidence of mandibular or TMJ abnormalities. Allergies Allergy/AdvReac Type Severity Reaction Status Date / Time No Known Allergies Allergy Verified 06/15/22 15:07 Home Medications Medication Instructions Recorded Confirmed Type Vancomycin Fortified 10mg/Ml 1 drp OPB QID 06/15/22 07/29/22 History acetaminophen 325 mg tablet 650 mg PO Q4 PRN Fever Or Pain 06/15/22 07/29/22 History (Tylenol) albuterol sulfate 90 mcg/actuation 2 puff inhalation Q4 PRN Shortness 06/15/22 07/29/22 History aerosol inhaler Of Breath Or Wheezing allopurinol 300 mg tablet 300 mg PO DAILY 06/15/22 07/29/22 History apixaban 5 mg tablet 5 mg PO Q12 06/15/22 07/29/22 History aspirin 81 mg tablet,delayed 81 mg PO DAILY 06/15/22 07/29/22 History release atorvastatin 10 mg tablet 10 mg PO DAILY 06/15/22 07/29/22 History bupropion HCl 150 mg 24 hr tablet, 150 mg PO DAILY 06/15/22 07/29/22 History extended release cholecalciferol (vitamin D3) 25 50 mcg PO DAILY 06/15/22 07/29/22 History mcg (1,000 unit) tablet (Vitamin D3) digoxin 125 mcg (0.125 mg) tablet 125 mcg PO DAILY 06/15/22 07/29/22 History duloxetine 60 mg capsule,delayed 60 mg PO DAILY 06/15/22 07/29/22 History release epinephrine 0.3 mg/0.3 mL 0.3 mg IM DIRECTED PRN Allergic 06/15/22 07/29/22 History injection, auto-injector Reaction erythromycin 5 mg/gram (0.5 %) eye 1 applic OPB DIRECTED 06/15/22 07/29/22 History ointment gabapentin 300 mg capsule 300 mg PO QID 06/15/22 07/29/22 History insulin regular human 100 unit/mL 12 unit subcut TIDM 06/15/22 07/29/22 History injection solution (Novolin R Regular U-100 Insulin) levothyroxine 125 mcg tablet 250 mcg PO DAILY 06/15/22 07/29/22 History lidocaine 5 % topical patch 1 patch topical DAILY 06/15/22 07/29/22 History loratadine 10 mg tablet 20 mg PO DAILY PRN .allergies 06/15/22 07/29/22 History magnesium oxide 420 mg tablet 420 mg PO DAILY 06/15/22 07/29/22 History multivitamin 1 tab PO DAILY 06/15/22 07/29/22 History naphazoline 0.025 %-pheniramine 2 drp ophthalmic (eye) Q6 PRN .. 06/15/22 07/29/22 History 0.3 % eye drops (Naphcon-A) nitroglycerin 0.4 mg sublingual 0.4 mg sublingual DIRECTED PRN 06/15/22 07/29/22 History tablet (Nitrostat) Chest Pain nystatin 100,000 unit/gram topical 1 applic topical BID 06/15/22 07/29/22 History powder omeprazole 20 mg capsule,delayed 20 mg PO DAILY 06/15/22 07/29/22 History release polyvinyl alcohol-povidone (PF) 1 drp OPB DIRECTED 06/15/22 07/29/22 History 1.4 %-0.6 % eye drops in a dropperette (Refresh Classic (PF)) potassium chloride 20 mEq 20 meq PO DAILY 06/15/22 07/29/22 History tablet,extended release(part/cryst) sennosides 8.6 mg tablet (senna) 8.6 mg PO BID 06/15/22 07/29/22 History furosemide 40 mg tablet 40 mg PO QAM #30 tabs 06/23/22 07/29/22 Rx metoprolol succinate 50 mg 100 mg PO BID #60 tabs 06/23/22 07/29/22 Rx tablet,extended release 24 hr insulin glargine 100 unit/mL 65 unit subcut PM 07/29/22 07/29/22 History subcutaneous solution insulin glargine 100 unit/mL 105 unit subcut DAILY 07/29/22 07/29/22 History subcutaneous solution insulin regular human 100 unit/mL 1 sliding scale dose subcut 07/29/22 07/29/22 History (3 mL) subcutaneous pen (Novolin R USEASDIRECTD FlexPen) Patient History Medical History (Updated 08/01/22 @ 07:00 by Clarence Alvarez MD) Arthritis Atrial flutter Bifascicular block CAD (coronary artery disease) Cardiac pacemaker in situ Cardiomyopathy Chronic anticoagulation Chronic diastolic CHF (congestive heart failure) Chronic venous insufficiency CKD (chronic kidney disease) stage 3, GFR 30-59 ml/min Claustrophobia Closed fracture of thyroid cartilage COPD, moderate COVID-19 Depression Diabetes mellitus, type 2 insulin pump Entropion of left lower eyelid Fatty liver Gout Hyperlipidemia Hypertension Hypothyroidism Iatrogenic pulmonary embolism Interstitial lung disease Morbid obesity MRSA infection Nephrolithiasis Nocturnal hypoxemia SALAS (obstructive sleep apnea) Osteoarthritis Paroxysmal atrial fibrillation Prolonged QT interval Pulmonary embolism B/L- 5+ years ago Sarcoidosis possible- evaluated by pulmonary; felt no active sarcoidosis and would not merit steroid therapy given weight/diabetic state. Sleep apnea CPAP Solitary pulmonary nodule Tachy-sherry syndrome Tachycardia induced cardiomyopathy "prior EF of 25% while in aflutter, subsequently normal in NSR" Surgical History H/O cardiac radiofrequency ablation H/O prior ablation treatment History of arthroscopic knee surgery History of bronchoscopy History of cataract surgery local anesthesia only per pt History of cholecystectomy History of extraction of renal calculus History of lung surgery thoracoscopy, right VATS, wedge resection History of umbilical hernia repair Hx of carpal tunnel repair Pacemaker Implanted 02/2017 secondary to Sinus node dysfunction/tachy sherry syndrome/3rd degree AVB [employer] Pacer check 12/24/17 Status post incision and drainage Family History Mother Cancer Social History Smoking Status: Never smoker Second Hand Exposure: No; Hx Alcohol Use: No Hx Substance Use: No Preferred Language: Setswana Communication Ability: Effective Visual Impairment: Limited Hearing Ability: Normal Ash Collector Required: No Beliefs That Will Affect Care: None marital status: Single Current Living Situation: [facility] Current Living Situation Comment: [facility] current occupational status: retired How many Children do You have: 1 How many Children do You have Comment: children are not involved with care much per pt Feels Safe at Home: Yes Safety Concerns: Feels Safe At This Time Diet Comment: FLUID RESTRICTION during the past year weight has: other Assistive Devices: Walker Physical Exam Physical Exam: GENERAL: NAD, AOx3 FACE: Symmetric and intact. Pain with palpation along bahai, forehead, supraorbital area, and along right jaw and neck. EYES: Sclera injected and erythematous. EOMI, reactive and symmetric pupils EARS: Auricles are symmetric, external auditory canals are free of cerumen and patent NOSE: Mild external deviation, mucosa intact; no polyps, purulence, or masses ORAL CAVITY: No trismus; Mucosal intact without lesions, ulcerations, or superficial changes; Exquisitely tender to palpation and manipulation along the soft tissue of the posterior buccal mucosa and retromolar trigone. Tongue mobile OROPHARYNX: No masses or bleeding; No underlying changes of tonsillar pillars and pharyngeal mucosa; Symmetric palatal rise NECK: No masses, lymphadenopathy, or salivary tumors; Trachea midline RESPIRATORY: Symmetric chest expansion, no stridor CARDIAC: Warm and well perfused extremities with bilateral lower extremity edema NEURO: Alert and oriented, CNII-XII grossly intact Results & Data ([facility]) Vital Signs (Past 12 Hours) Vital Signs Temp Pulse Pulse Resp BP BP Pulse Ox 08/01/22 03:17 36.4 C L 89 18 153/90 H 91 08/01/22 00:00 101 H 07/31/22 22:52 36.5 C 101 H 18 117/98 93 07/31/22 21:45 07/31/22 20:55 36.4 C L 94 H 18 117/99 93 07/31/22 20:11 106 H 07/31/22 18:31 89 21 90 07/31/22 18:31 142/105 H O2 Del Method O2 Flow Rate 08/01/22 03:17 Room Air 08/01/22 00:00 07/31/22 22:52 Nasal Cannula 2.0 07/31/22 21:45 Room Air 07/31/22 20:55 Room Air 07/31/22 20:11 07/31/22 18:31 07/31/22 18:31 PG Care Time/CCT Total # of Minutes Spent Total Time Spent with Patient: Total time spent is greater than 50% in coordination of care (as documented) at patient's floor/unit and/or counseling patient: Coding Level of Care Code INP/OBS CONSULT LVL 4, 60 MIN Diagnoses GCA (giant cell arteritis) M31.6 Temporomandibular joint (TMJ) pain M26.629 Vision abnormalities H53.9 Chronic anticoagulation Z79.01 Time Spent (min) 80 Comment Did bedside ultrasound and spent 80 minutes in total on care
[2022-08-01] MEDS: ATORVASTATIN 10 MG TAB PO SCH (08:18)
[2022-08-01] MEDS: PANTOprazole 40 MG TAB PO SCH (08:18)
[2022-08-01] MEDS: MAGNESIUM OXIDE 400 MG TAB PO SCH (08:18)
[2022-08-01] MEDS: POTASSIUM CHLORIDE CRTAB 20 MEQ TABCR PO SCH (08:18)
[2022-08-01] MEDS: METOPROLOL SUCC 50MG EXT REL TAB PO SCH (08:19)
[2022-08-01] MEDS: FUROSEMIDE 40 MG/4 ML VIAL IV SCH (08:20)
[2022-08-01] MEDS: predniSONE 20 MG TAB PO SCH (08:20)
[2022-08-01] MEDS: allopurinoL 300 MG TAB PO SCH (08:20)
[2022-08-01] MEDS: GABAPENTIN 300 MG CAP PO SCH ×2 (08:20→12:04)
[2022-08-01] MEDS: DULoxetine HCL 60 MG CAP PO SCH (08:20)
[2022-08-01] MEDS: buPROPion XL 150 MG TABCR PO SCH (08:21)
[2022-08-01] MEDS: ASPIRIN 81 MG ECTAB PO SCH (08:21)
[2022-08-01] MEDS: NYSTATIN POWDER 15GM BTL EXT SCH (08:22)
[2022-08-01] MEDS: NAPHAZOLIN/PHENIRAMIN OPH SOLN 75 DROPS/5 ML BTL OP SCH ×2 (08:22→13:40)
[2022-08-01] MEDS: SENNA 8.6 MG TAB PO SCH (08:26)
[2022-08-01] MEDS: INSULIN HUMAN NPH SC SCH (08:26)
[2022-08-01] MEDS ORDERED: LANTUS PER UNIT CHARGE SQ SCH (09:00)
[2022-08-01 09:26] LABS: Basophils # (auto) 0.03 K/uL (0-0.2); Basophils % (auto) 0.2 %; Eosinophils # (auto) 0.02 K/uL (0-0.50); Eosinophils % (auto) 0.1 %; Hematocrit (blood only) 41.7 % (40.1-51.0); Immature Granulocytes # (auto) 0.09 K/uL (0.00-0.02); Immature Granulocytes % (auto) 0.7 %; Lymphocytes # (auto) 2.12 K/uL (1.2-3.4); Lymphocytes % (auto) 15.8 %; Mean Corpuscular Hemoglobin 26.9 pg (25.0-34.0); Mean Corpuscular Hgb Conc 31.2 g/dL (32.0-36.0); Mean Corpuscular Volume 86.2 fL (80.0-100.0); Mean Platelet Volume 11.1 fL (9.4-12.4); Monocytes # (auto) 1.21 K/uL (0.24-0.82); Neutrophils # (auto) 9.96 K/uL (1.4-6.5); Neutrophils % (auto) 74.2 %; Platelet Count 236 K/uL (130-400); RDW Coefficient of Variation 15.1 % (11.5-14.5); RDW Standard Deviation 46.9 fL (36.4-46.3); Red Blood Count 4.84 M/uL (4.63-6.08); White Blood Count 13.43 K/ul (4.8-10.8)
[2022-08-01 10:05] LABS: BUN Creatinine Ratio 31.8 (10-20); Calcium 9.8 mg/dl (8.5-10.1); Creatinine Clr Calc Pharmacy 77.6 ml/min; Est GFR (African American) 64.7 ml/min; Est GFR (Non-African American) 55.8 ml/min; Potassium 3.8 mmol/L (3.5-5.1)
[2022-08-01] MEDS: APIXABAN 5 MG TABLET PO SCH (10:51)
--- NOTE | 2022-08-01 11:38 | Cardiology Progress Note ---
Date of Service August 01, 2022 Assessment & Plan (1) Acute on chronic diastolic CHF (congestive heart failure): (2) Respiratory failure with hypoxia: (3) Temporomandibular joint (TMJ) pain: (4) Weakness: (5) SALAS (obstructive sleep apnea): (6) History of pulmonary embolism: (7) Tachy-sherry syndrome: (8) Pacemaker: (9) Interstitial lung disease: (10) Morbid obesity: (11) Atrial flutter: (12) Sarcoidosis: (13) Tachycardia induced cardiomyopathy: Plan Patient has been successfully diuresed Okay to discharge to personal usp Given the need for recurrent hospitalizations for volume overload with discharge on furosemide 40 mg p.o. twice daily along with potassium chloride 20 mEq twice daily Will need follow-up with PCP and repeat BMP in 1 week Continue aspirin, Eliquis, atorvastatin, metoprolol, as needed metolazone and digoxin My office will call to arrange follow-up visit in 2 to 4 weeks Admission and Anticipated Discharge Date Admission Date: July 29, 2022 Subjective Patient seen and examined. Chart reviewed. Telemetry reviewed. Currently seated in chair stating that his breathing is now back to baseline. Review of Systems Review of Systems: All systems reviewed & are unremarkable except as noted in HPI & below Physical Exam Physical Exam: General: Awake, alert and oriented x 3. No acute distress. HEENT: Normocephalic, atraumatic. Pupils equal, round and reactive to light and accommodation. Extraocular muscles are intact. Anicteric sclera. Moist mucous membranes. Neck: No JVD. No bruit. Cardiovascular: irregularly irregular, unable to appreciate murmur, rub or gallop. Pulmonary: Clear to auscultation bilaterally. No rales, rhonchi, or wheezing. Abdomen: Bowel sounds x 4, soft. No rebound, guarding or tenderness. No organomegaly. Extremities: No clubbing, cyanosis. +2 bilateral lower extremity edema. +2 pedal pulses bilaterally. Skin: Warm and dry. Chronic venous stasis changes of the lower extremities Results & Data ([facility]) Vital Signs (Past 12 Hours) Vital Signs Temp Pulse Pulse Resp BP Pulse Ox O2 Del Method 08/01/22 11:00 36.2 C L 81 26 H 117/74 94 Room Air 08/01/22 11:12 92 08/01/22 08:00 78 08/01/22 09:29 Nasal Cannula 08/01/22 07:00 36.3 C L 87 20 103/78 94 Room Air 08/01/22 03:17 36.4 C L 89 18 153/90 H 91 Room Air 08/01/22 00:00 101 H O2 Flow Rate 08/01/22 11:00 08/01/22 11:12 08/01/22 08:00 08/01/22 09:29 2 08/01/22 07:00 08/01/22 03:17 08/01/22 00:00
[2022-08-01 11:52] LABS: HBSAG NON-REACTIVE (NON-REACTIVE); Hepatitis B Core Antibody IgM NON-REACTIVE (NON-REACTIVE); Hepatitis B Core Antibody Total NON-REACTIVE (NON-REACTIVE)
--- NOTE | 2022-08-01 12:14 | Hospitalist Progress Note ---
Date of Service August 01, 2022 Assessment & Plan (1) Respiratory failure with hypoxia: Plan: Secondary to acute on chronic diastolic heart failure Management as below Has been saturating normally on room air Ambulating in the room without any difficulties (2) Acute on chronic diastolic CHF (congestive heart failure): Plan: Admitted to ICU with telemetry status Patient presenting from [facility] for evaluation of right ear/jaw/head pain. Upon EMS arrival, patient was found to be hypoxic in the high 80s requiring 2L O2. Patient typically only wears O2 at night. Patient denies worsening shortness of breath and weight gain. Does report slight increase in LE edema. CXR shows moderate pulmonary edema ECHO 12/2021 - EF 55-60% Repeat ECHO shows normal LV chamber size with mild concentric LVH, difficult to assess accurately LV systolic function given frequent PVCs but grossly normal, poorly visualized valvular structures without significant stenosis and/or regurgitation by Doppler Received Lasix 40mg IV in the ED, will continue with Lasix 40mg IV BID Appreciate cardiology input and recommendation He has been feeling much better and has had about 3 L negative balance so far Remains stable hemodynamically and denies any cardiac symptoms No signs and or symptoms of fluid volume overload Will be discharged home this afternoon (3) Temporomandibular joint (TMJ) pain: Plan: The patient refused MRI of the temporomandibular joint Improvement in her joint pain and tenderness have improved Carotid US -unremarkable ESR, CRP-chronically elevated and may have polymyalgia rheumatica ENT consult -appreciate input and recommendation Rheumatology consult has been requested He has been on oral prednisone and symptomatically much better If biopsy is not done in the hospital he will be followed up as an outpatient with security trainer Appreciate rheumatology input and recommendation-Will have hepatitis B and hepatitis C studies and also TB test He will have biopsy of the temporal artery preferably both sides at around 4 PM today Status post right temporal artery biopsy 07/31/2022 He will be discharged home on prednisone 60 mg a day and will have a follow-up of in the rheumatology clinic (4) Hyperglycemia due to type 2 diabetes mellitus: Plan: hgb a1c 11.6 06/2022 glucose 312 on admission labs, no signs of DKA glycemic pharmacy consult Blood sugar is expected to be high Will be discharged today (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 EKG showing paced rhythm with occasional PVCs (6) Pacemaker: (7) Paroxysmal atrial fibrillation: Plan: Rate controlled on metoprolol and digoxin Anticoagulated on Eliquis (8) Hypothyroidism: Plan: Continue levothyroxine (9) DVT prophylaxis: Plan: On Eliquis as an outpatient Plan Will be discharged to personal-custodial this afternoon Admission and Anticipated Discharge Date Admission Date: July 29, 2022 Subjective 07/30/2022 The patient was seen and examined in ICU in the setting of telemetry He was admitted with pain involving the right temporomandibular joint and adjoining area of the head associated with some visual symptoms in the right side for the last 3 weeks Occasional shortness of breath with exertion Has been feeling much better since admission and denies any shortness of breath Right temporomandibular joint pain and headache have improved 07/31/2022 The patient was seen and examined in ICU in the setting of telemetry unit He has been feeling much better Headache is improved and there is no visual symptoms Denies any shortness of breath, chest pain and/or palpitation 08/01/2022 The patient was seen and examined in ICU in the setting of telemetry unit He has been feeling much better He has had right temporal artery biopsy done yesterday Denies any significant symptoms He will be discharged this afternoon Review of Systems Review of Systems: All systems reviewed and are unremarkable except as noted below Physical Exam Physical Exam: Sitting at the side of the bed without any discomfort Constitutional: well developed, well nourished, + ill appearing and + obese Eyes: PERRL, conjunctivae normal, anicteric sclerae ENMT: external ear and nose normal, oropharynx normal Neck: trachea midline, no thyromegaly Respiratory: no respiratory distress Auscultation: lungs clear to auscultation bilaterally Cardiovascular: Rate/Rhythm: + irregularly irregular Heart Sounds: normal S1 and normal S2; no murmur Extremities: + edema (1+ edema bilaterally with chronic skin changes) Gastrointestinal (Abdomen): Inspection/Auscultation: normal bowel sounds; abdomen not distended Percussion/Palpation: + abdomen tender and abdomen soft Neurologic: normal touch/pain/proprioception and moves all extremities; no focal motor deficits Psychiatric: A+Ox3, euthymic affect Lymphatic: no cervical or axillary lymphadenopathy Results & Data Results & Data ([facility]) Vital Signs (Past 12 Hours) Vital Signs Temp Pulse Pulse Resp BP Pulse Ox O2 Del Method 08/01/22 11:00 36.2 C L 81 26 H 117/74 94 Room Air 08/01/22 11:12 92 08/01/22 08:00 78 08/01/22 09:29 Nasal Cannula 08/01/22 07:00 36.3 C L 87 20 103/78 94 Room Air 08/01/22 03:17 36.4 C L 89 18 153/90 H 91 Room Air O2 Flow Rate 08/01/22 11:00 08/01/22 11:12 08/01/22 08:00 08/01/22 09:29 2 08/01/22 07:00 08/01/22 03:17 Laboratory Results Short CBC 08/01/22 Range/Units 08:32 WBC 13.43 H (4.8-10.8) K/ul Hgb 13.0 L (14.0-18.0) g/dl Hct 41.7 (40.1-51.0) % Plt Count 236 (130-400) K/uL BMP 08/01/22 08:32 Sodium 137 Potassium 3.8 Chloride 99 Carbon Dioxide 32 BUN 41 H Creatinine 1.29 Glucose 282 H Calcium 9.8 Medications Administered Current Inpatient Medications Acetaminophen (Acetaminophen 325 Mg Tab) 650 mg PO Q4H PRN PRN Reason: Pain or Fever Stop: 08/28/22 12:46 Last Admin: 07/31/22 00:58 Dose: 650 mg Allopurinol (Allopurinol 300 Mg Tab) 300 mg PO DAILY [facility] Stop: 08/29/22 08:59 Last Admin: 08/01/22 08:20 Dose: 300 mg Apixaban (Apixaban 5 Mg Tablet) 5 mg PO Q12 OFE Stop: 08/28/22 20:59 Last Admin: 08/01/22 10:51 Dose: 5 mg Artificial Tears (Artificial Tears) 1 drops OP Q2HWA PRN PRN Reason: DRY EYES Stop: 08/28/22 15:59 Aspirin (Aspirin 81 Mg Ectab) 81 mg PO DAILY [facility] Stop: 08/29/22 08:59 Last Admin: 08/01/22 08:21 Dose: 81 mg Atorvastatin Calcium (Atorvastatin 10 Mg Tab) 10 mg PO DAILY [facility] Stop: 08/29/22 08:59 Last Admin: 08/01/22 08:18 Dose: 10 mg Bupropion HCl (Bupropion Xl 150 Mg Tabcr) 150 mg PO DAILY [facility] Stop: 08/29/22 08:59 Last Admin: 08/01/22 08:21 Dose: 150 mg Dextrose (Dextrose 50% 50 Ml Syringe) 25 - 50 ml IV UD PRN; Protocol PRN Reason: Hypoglycemia Protocol Stop: 08/28/22 12:29 Digoxin (Digoxin 0.125 Mg Tab) 0.125 mg PO 1800 OFE Stop: 08/28/22 17:59 Last Admin: 07/31/22 20:11 Dose: 0.125 mg Duloxetine HCl (Duloxetine Hcl 60 Mg Cap) 60 mg PO DAILY [facility] Stop: 08/29/22 08:59 Last Admin: 08/01/22 08:20 Dose: 60 mg Furosemide (Furosemide 40 Mg/4 Ml Vial) 40 mg IV BID [facility] Stop: 08/28/22 20:59 Last Admin: 08/01/22 08:20 Dose: 40 mg Gabapentin (Gabapentin 300 Mg Cap) 300 mg PO QID OFE Stop: 08/28/22 13:29 Last Admin: 08/01/22 12:04 Dose: 300 mg Glucagon (Glucagon For Inj 1 Mg Vial) 1 mg IM UD PRN; Protocol PRN Reason: Hypoglycemia Protocol Stop: 08/28/22 12:29 Glucose (Glucose 40% Gel 15 Gm Tube) 15 - 30 gm PO UD PRN; Protocol PRN Reason: Hypoglycemia Protocol Stop: 08/28/22 12:29 Glucose (Glucose 10 Tab/Tube) 4 - 8 tab PO UD PRN; Protocol PRN Reason: Hypoglycemia Protocol Stop: 08/28/22 12:29 Heparin Sodium/Dextrose (Heparin Sodium/Dextrose) 25,000 units in 500 mls @ 0 mls/hr IV .Q0M [facility]; Protocol Stop: 08/28/22 21:29 Last Titration: 07/31/22 09:57 Dose: 0 units/hr, 0 mls/hr Insulin Aspart (Insulin Aspart Per Unit) 0 units SQ ACHS [facility] Stop: 08/28/22 12:14 Last Admin: 08/01/22 12:01 Dose: 27 units Insulin Glargine (Lantus Per Unit Charge) 35 units SQ HS [facility] Stop: 08/29/22 20:59 Last Admin: 07/31/22 21:27 Dose: 35 units Insulin Glargine (Lantus Per Unit Charge) 80 units SQ QAM [facility] Stop: 08/29/22 08:59 Last Admin: 08/01/22 08:08 Dose: 80 units Insulin Human NPH (Insulin Human Nph) 30 units SC QAM [facility] Stop: 08/29/22 08:59 Last Admin: 08/01/22 08:26 Dose: 30 units Levothyroxine Sodium (Levothyroxine Sodium 125 Mcg Tablet) 250 mcg PO DAILYBB [facility] Stop: 08/29/22 06:29 Last Admin: 08/01/22 05:48 Dose: 250 mcg Magnesium Oxide (Magnesium Oxide 400 Mg Tab) 400 mg PO DAILY [facility] Stop: 08/29/22 08:59 Last Admin: 08/01/22 08:18 Dose: 400 mg Metoprolol Succinate (Metoprolol Succ 50mg Ext Rel Tab) 100 mg PO BID [facility] Stop: 08/28/22 20:59 Last Admin: 08/01/22 08:19 Dose: 100 mg Miscellaneous (Carbohydrates For Hypoglycemia ) 15 - 30 gm PO UD PRN PRN Reason: Hypoglycemia Treatment Stop: 08/28/22 12:29 Miscellaneous Information (Pharmacy Glycemic Mgmt Consult) 1 each N/A UD PRN; Protocol PRN Reason: Consult Stop: 08/28/22 11:11 Naphazoline HCl/Pheniramine Maleate (Naphazolin/Pheniramin Oph Soln 75 Drops/5 Ml Btl) 2 drops OP TID [facility] Stop: 08/28/22 16:59 Last Admin: 08/01/22 08:22 Dose: 2 drops Nystatin (Nystatin Powder 15gm Btl) 1 appln EXT BID [facility] Stop: 08/28/22 20:59 Last Admin: 08/01/22 08:22 Dose: 1 appln Pantoprazole Sodium (Pantoprazole 40 Mg Tab) 40 mg PO DAILY [facility] Stop: 08/29/22 08:59 Last Admin: 08/01/22 08:18 Dose: 40 mg Potassium Chloride (Potassium Chloride Crtab 20 Meq Tabcr) 20 meq PO DAILY [facility] Stop: 08/29/22 08:59 Last Admin: 08/01/22 08:18 Dose: 20 meq Prednisone (Prednisone 20 Mg Tab) 60 mg PO DAILY [facility] Stop: 08/29/22 08:59 Last Admin: 08/01/22 08:20 Dose: 60 mg Sennosides (Senna 8.6 Mg Tab) 8.6 mg PO BID [facility] Stop: 08/28/22 20:59 Last Admin: 08/01/22 08:26 Dose: 8.6 mg Tramadol HCl (Tramadol Hcl 50 Mg Tablet) 50 mg PO Q4H PRN PRN Reason: Pain Stop: 08/28/22 16:34 Last Admin: 07/29/22 22:49 Dose: 50 mg (1) Hyperglycemia due to type 2 diabetes mellitus Diabetes mellitus fci insulin use: with fci use Qualified Code(s): E11.65 - Type 2 diabetes mellitus with hyperglycemia; Z79.4 - skilled nursing (current) use of insulin (2) Hypothyroidism Hypothyroidism type: unspecified Qualified Code(s): E03.9 - Hypothyroidism, unspecified
--- NOTE | 2022-08-01 13:42 | Pharmacy Report ---
Pharmacy Glycemic Short Note 2 - Date of Service August 01, 2022 - Glycemic Short BSG Results (Last 24 hours): 07/31/22 07/31/22 08/01/22 16:17 20:41 07:21 Glucose POC Glucose 190 H 199 H 305 H* 08/01/22 08/01/22 08/01/22 07:22 08:32 11:03 Glucose 282 H POC Glucose 299 H 213 H OUTPATIENT ANTIDIABETIC REGIMEN: * Lantus 105 units AM + 65 units PM * Novolin R 12 units TIDM + SSI (see below) * 70 - 150 mg/dl 0 units * 151 - 199 mg/dl 5 units * 200 - 250 mg/dl 7 units * 251 - 300 mg/dl 10 units * 301 - 350 mg/dl 13 units * 351 - 400 mg/dl 15 units * >400 mg/dl 30 units ASSESSMENT: 08/01: * Patient received 241 units of insulin yesterday (135 basal (lantus +NPH) + 106 units of novolog) * AM BSG 305 mg/dL- patient did not receive overnight insulin. Will titrate basal up this morning. * Tightened carb ratio. * Anticipate discharge today on prednisone- discussed discharge with hospitalist. 07/30: * Patient BSG downtrended last evening but trended back up again this morning. Per RN patient has been snacking overnight * Of note breakfast BSG of 304 mg/dL was postprandial * One dose of solumedrol was given last night and prednisone 60mg was initiated this morning. * In addition to lantus dosing, NPH was added this morning to help combat the effects of the steroids * Due to snacking and post prandial BSGs it is difficult to determine at this point where the patient truly is. Will monitor trend through the evening. Can consider an IV bolus dose if BSG remains >300 this evening. 07/29: * 72-year-old male with PMH DM type II [facility]Head [facility]. Random morning BSG 312 mg/dl and POC at noon 258 mg/dl. He received Insulin regular 4 units IV in the ED. Per nursing facility, he did not receive any insulin on morning of presentation to the ED. PLAN FOR INPATIENT GLYCEMIC CONTROL: * Basal insulin * Lantus 80 units qam, 35 units qpm * NPH 30 units qam with prednisone * Bolus insulin * NovoLog per scale ACHS or Q6hrs while NPO * Goal Range: Low 110 mg/dL - High 140 mg/dL * Correction Factor: 8 mg/dL/unit * Nutritional / Prandial insulin per carb ratio of 1 unit per 2 grams CHO consumed
--- NOTE | 2022-08-01 19:02 | Discharge Summary ---
Date of Service August 01, 2022 Admission HPI Per Admitting Provider 72-year-old male with PMH DM type II, tachybradycardia syndrome s/p pacemaker, atrial fibrillation on Eliquis, chronic diastolic CHF, nocturnal hypoxia, hypothyroidism, and other problems listed below who presents to the ED for evaluation of right ear/jaw/head pain. Patient reports symptoms have been ongoing for the past one week. Pain has been intermittent and when it comes on, patient reports his right eye nobles. When EMS was called to bring the patient to the hospital, he was found to be hypoxic at 88%. Patient typically only wears O2 at night. Patient states that he has chronic exertional shortness of breath which is unchanged from baseline. Weight has been stable. Reports lower extremity edema is slightly worse than normal. No orthopnea. Patient denies chest pain, palpitations. Has an occasional non productive cough. No fevers or chills. Denies abdominal pain, nausea, vomiting, diarrhea. No urinary symptoms. In the ED, patient was requiring 2 L of oxygen via nasal cannula. Labs show glucose 312, otherwise unremarkable. CXR shows moderate pulmonary edema. Head CT negative for acute findings. Patient was given Lasix 40 mg IV and insulin 4 units IV. Admission Exam Per Admitting Provider Constitutional: WD/WN, vitals as above + obese; no acute distress Eyes: PERRL, conjunctivae normal, anicteric sclerae ENMT: external ear and nose normal, oropharynx normal Mouth: + TMJ tender (right) Respiratory: normal respiratory effort; no respiratory distress Auscultation: + crackles (BL bases) Cardiovascular: Rate/Rhythm: regular rate and regular rhythm Vessels: normal peripheral pulses Extremities: + edema (+2 edema BLE) Gastrointestinal (Abdomen): normal bowel sounds, soft, nontender, no hepatosplenomegaly Musculoskeletal: no cyanosis or clubbing, extremities motor strength 5/5 Skin: no rashes, warm and dry chronic venous changes BLE Neurologic: PERRL, EOMI, accommodation nl, no face palsy, no dysarthria Psychiatric: A+Ox3, euthymic affect Principal Diagnosis Acute respiratory failure with hypoxia, acute on chronic diastolic heart failure, temporal arteritis, type 2 diabetes Discharge Exam Sitting at the side of the bed without any discomfort Constitutional well developed, well nourished, + ill appearing and + obese Eyes PERRL, conjunctivae normal, anicteric sclerae ENMT external ear and nose normal, oropharynx normal Neck trachea midline, no thyromegaly Respiratory no respiratory distress Auscultation: lungs clear to auscultation bilaterally Cardiovascular Rate/Rhythm: + irregularly irregular Heart Sounds: normal S1 and normal S2; no murmur Extremities: + edema (1+ edema bilaterally with chronic skin changes) Gastrointestinal (Abdomen) Inspection/Auscultation: normal bowel sounds; abdomen not distended Percussion/Palpation: + abdomen tender and abdomen soft Neurologic normal touch/pain/proprioception and moves all extremities; no focal motor deficits Psychiatric A+Ox3, euthymic affect Lymphatic no cervical or axillary lymphadenopathy Discharge Data Allergies Allergy/AdvReac Type Severity Reaction Status Date / Time No Known Allergies Allergy Verified 06/15/22 15:07 Consultations 07/29/22 10:02 ED Decision to Admit Stat 07/29/22 12:47 Consult Cardiology Routine Consult Otolaryngology (Head and Neck) Routine 07/29/22 21:11 Consult Rheumatology Routine Ordered Studies 07/29/22 08:32 CT head/brain wo con Stat 07/29/22 12:20 US carotid doppler BI Routine Hospital Course (1) Respiratory failure with hypoxia: Secondary to acute on chronic diastolic heart failure Management as below Has been saturating normally on room air Ambulating in the room without any difficulties (2) Acute on chronic diastolic CHF (congestive heart failure): Admitted to ICU with telemetry status Patient presenting from [facility] for evaluation of right ear/jaw/head pain. Upon EMS arrival, patient was found to be hypoxic in the high 80s requiring 2L O2. Patient typically only wears O2 at night. Patient denies worsening shortness of breath and weight gain. Does report slight increase in LE edema. CXR shows moderate pulmonary edema ECHO 12/2021 - EF 55-60% Repeat ECHO shows normal LV chamber size with mild concentric LVH, difficult to assess accurately LV systolic function given frequent PVCs but grossly normal, poorly visualized valvular structures without significant stenosis and/or regurgitation by Doppler Received Lasix 40mg IV in the ED, will continue with Lasix 40mg IV BID Appreciate cardiology input and recommendation He has been feeling much better and has had about 3 L negative balance so far Remains stable hemodynamically and denies any cardiac symptoms No signs and or symptoms of fluid volume overload Will be discharged home this afternoon (3) Temporomandibular joint (TMJ) pain: The patient refused MRI of the temporomandibular joint Improvement in her joint pain and tenderness have improved Carotid US -unremarkable ESR, CRP-chronically elevated and may have polymyalgia rheumatica ENT consult -appreciate input and recommendation Rheumatology consult has been requested He has been on oral prednisone and symptomatically much better If biopsy is not done in the hospital he will be followed up as an outpatient with motor boss Appreciate rheumatology input and recommendation-Will have hepatitis B and hepatitis C studies and also TB test He will have biopsy of the temporal artery preferably both sides at around 4 PM today Status post right temporal artery biopsy 07/31/2022 He will be discharged home on prednisone 60 mg a day and will have a follow-up of in the rheumatology clinic (4) Hyperglycemia due to type 2 diabetes mellitus: hgb a1c 11.6 06/2022 glucose 312 on admission labs, no signs of DKA glycemic pharmacy consult Blood sugar is expected to be high Will be discharged today (5) Tachy-sherry syndrome: Status post pacemaker EKG showing paced rhythm with occasional PVCs (6) Pacemaker: (7) Paroxysmal atrial fibrillation: Rate controlled on metoprolol and digoxin Anticoagulated on Eliquis (8) Hypothyroidism: Continue levothyroxine (9) DVT prophylaxis: On Eliquis as an outpatient Plan Will be discharged to personal-assisted this afternoon Total Time Total Time Spent Total Time Spent (In Minutes): 40 minutes Discharge Plan Discharge Items Patient Disposition: Personal [facility] Reason For Visit: CHF Discharge Diagnosis: Respiratory failure with hypoxia, acute on chronic diastolic CHF, temporal arteritis, type 2 diabetes on insulin Condition on Discharge: Fair Activity: Resume your previous activity Non-emergency contact: Primary Care Provider Call non-emergency contact if: you have any medication questions and your symptoms worsen Follow-up/Referrals: [facility] [Primary Care Provider] - Diet: Carb Consistent or DM2, Heart Healthy and Low Sodium (2gm) Fluids: 1800ml (7 cups) Addtl Attending Provider Instructions: Please take precautions to avoid fall Take your medications as advised Your furosemide and potassium doses have been increased Your blood sugar will be elevated due to use of prednisone Your insulin doses have been adjusted but may need further adjustment as long as you are on prednisone Please keep appointments with your healthcare providers [facility] will call you with follow-up appointments Pending Studies at Discharge: Yes Studies:: Temporal artery biopsy result Stand-Alone Forms: [employer], Smoking Cessation Skilled Items Patient informed of condition?: Yes DNR: No Discharge Level of Care: Other Communicable Disease: No Discharge Prognosis: Stable Lines: None Urinary Catheter: No Medications and DC Order Prescriptions: New prednisone 20 mg Tablet 60 mg PO DAILY 20 Days Qty: 60 0RF Continued insulin glargine 100 unit/mL Solution 105 unit SUBCUT DAILY insulin glargine 100 unit/mL Solution 65 unit SUBCUT PM Novolin R FlexPen 100 unit/mL (3 mL) Insulin Pen 1 sliding scale dose SUBCUT USEASDIRECTD Vancomycin Fortified 10mg/Ml 1 drp OPB QID Rx Instructions: KEEP REFRIGERATED sennosides [senna] 8.6 mg Tablet 8.6 mg PO BID acetaminophen [Tylenol] 325 mg Tablet 650 mg PO Q4 PRN (Reason: Fever Or Pain) magnesium oxide 420 mg Tablet 420 mg PO DAILY aspirin 81 mg Tablet,Delayed Release (Dr/Ec) 81 mg PO DAILY erythromycin 5 mg/gram (0.5 %) ointment 1 applic OPB DIRECTED Rx Instructions: 1/2 inch ribbon to both lower eye lids. Frequency was not noted. levothyroxine 125 mcg Tablet 250 mcg PO DAILY Rx Instructions: [facility] states to give 1, 125 mcg tab daily. lidocaine 5 % Adhesive Patch,Medicated 1 patch TOPICAL DAILY Rx Instructions: leave on most painful area for up to 12 hrs, then take off nitroglycerin [Nitrostat] 0.4 mg Tablet, Sublingual 0.4 mg sublingual DIRECTED PRN (Reason: Chest Pain) digoxin 125 mcg (0.125 mg) Tablet 125 mcg PO DAILY Rx Instructions: 1800 nystatin 100,000 unit/gram Powder 1 applic TOPICAL BID epinephrine 0.3 mg/0.3 mL Auto-Injector 0.3 mg IM DIRECTED PRN (Reason: Allergic Reaction) albuterol sulfate 90 mcg/actuation Hfa Aerosol Inhaler 2 puff INHALATION Q4 PRN (Reason: Shortness Of Breath Or Wheezing) Naphcon-A 0.025-0.3 % Drops 2 drp OPHTHALMIC (EYE) Q6 PRN (Reason: ..) loratadine 10 mg Tablet 20 mg PO DAILY PRN (Reason: .allergies) Refresh Classic (PF) 1.4-0.6 % Dropperette 1 drp OPB DIRECTED Rx Instructions: q2hrs while awake duloxetine 60 mg capsule,delayed release(DR/EC) 60 mg PO DAILY cholecalciferol (vitamin D3) [Vitamin D3] 25 mcg (1,000 unit) Tablet 50 mcg PO DAILY apixaban 5 mg Tablet 5 mg PO Q12 atorvastatin 10 mg tablet 10 mg PO DAILY gabapentin 300 mg capsule 300 mg PO QID omeprazole 20 mg capsule,delayed release(DR/EC) 20 mg PO DAILY allopurinol 300 mg tablet 300 mg PO DAILY bupropion HCl 150 mg tablet extended release 24 hr 150 mg PO DAILY multivitamin Tablet 1 tab PO DAILY metoprolol succinate 50 mg Tablet Extended Release 24 Hr 100 mg PO BID Qty: 60 0RF Changed furosemide 40 mg Tablet 40 mg PO BID Qty: 30 0RF potassium chloride 20 mEq tablet,ER particles/crystals 20 meq PO BID Qty: 60 0RF Novolin R Regular U-100 Insuln 100 unit/mL solution 14 unit subcut TIDM Qty: 10 0RF Discharge Orders: Discharge Order- CHF (Routine); Ordered 08/01/22 Ordered By: Mariah Torres/Other Patient Handouts: Understanding Deep Vein Thrombosis, DVT Complications, Preventing Deep Vein Thrombosis Admission Data Admit Date/Time: 07/29/22 10:20 Attending Provider: Mariah Vigil Admit Provider: Marina Freeman Primary Care Provider: [facility] Other Providers: Marina Freeman ; Juan Carbone Justin ; [facility] ; Navdeep Rankin ; [facility] Other Interventions: Discharge Summary Assessment (RN) Last Done: 08/01/22 14:14
[2022-08-04 15:32] LABS: Quantiferon Mitogen-NIL >10.00 IU/mL; Quantiferon NIL 0.04 IU/mL; Quantiferon TB Gold Plus NEGATIVE (NEGATIVE); Quantiferon TB1-NIL <0.00 IU/mL; Quantiferon TB2-NIL <0.00 IU/mL
--- NOTE | 2022-10-20 07:39 | Ears,Nose,Throat Progress Note ---
Date of Service October 19, 2022 Assessment & Plan (1) GCA (giant cell arteritis): (2) Temporomandibular joint (TMJ) pain: (3) Vision abnormalities: (4) Chronic anticoagulation: (5) Atrial fibrillation: (6) Hyperglycemia due to type 2 diabetes mellitus: (7) Sleep apnea: (8) Morbid obesity: Plan Mr. Andujar is a 72 year old gentleman with diabetes, tachybradycardia syndrome s/p pacemaker originally in 1992, atrial fibrillation on Eliquis, diastolic heart failure who is admitted for heart failure exacerbation after initially presenting to the Emergency department but with clinical suspicion of giant cell arteritis. While he has improved quite dramatically from systemic steroids, he agreed to and underwent temporal artery biopsy under local anesthesia in the ICU as there remained a window of opportunity for pathological diagnosis and to help guide clinical management decisions. We will follow up pathology, he is okay for normal activity and encourage activity and exercise, can restart anticoagulation the day following the procedure, and I will speak with his daughter by phone. . Admission and Anticipated Discharge Date Admission Date: July 29, 2022 Supervising Physician Co-Signing Physician Notes 72-year-old man presents with acute right facial pain and right-sided temporal headache for the last 3 weeks. The pain is persistent. He denies any fevers chills or other respiratory symptoms. He specifically denies any shortness of breath but does report increased exercise intolerance over the past couple of weeks. He does take Lasix daily and has been compliant with his meds. Notably EMS found him hypoxic at 88% which was improved with a small amount of oxygen supplementation. Patient typically only wears oxygen at night. The patient is morbidly obese and reports his weight is stable. Volume status is difficult to ascertain secondary to his body habitus but overall he appears euvolemic. He also has chronic eye irritation and has been on antibiotic eyedrops for the last 2 years with intermittent use of Visine. His eyes appear irritated today. Physical exam he is a morbidly obese man in no acute distress. He has normal respiratory effort on minimal oxygen supplementation via nasal cannula. He is clear and mentating well, able to give a good history. HEENT exam reveals tenderness to palpation of the right TMJ externally and internally. There is no palpable or tender lymph nodes in the submandibular or cervical space. There is no enlarged parotid gland. External auditory canals with some cerumen but tympanic membrane on the right is clear and no middle ear fluid is seen. Bilateral conjunctivae are irritated and eyes are watery. Cardiac exam reveals S1/S2 heard with regular rate and rhythm. There is no evidence of murmurs gallops or rubs. Lungs are clear to auscultation throughout and he has good breath sounds throughout with normal respiratory effort. He has no peripheral edema or swelling. Work-up today includes CBC with a normal white blood cell count, H&H that is slightly lower than his baseline but not by much at 11.8/38, platelet count is normal. An ESR is elevated at 83 with a CRP of 3.52. Glucose was elevated on arrival to 312 despite him taking his morning insulin. BNP is slightly elevated at 198. Nasal swab for SARS-CoV-2, flu, RSV is negative. Chest x-ray revealed cardiomegaly and moderate pulmonary edema. Head CT without contrast revealed no acute intracranial abnormality. Carotid Doppler was ordered with read pending. An MRI TMJ was ordered however radiology refused this to be done as inpatient. An MRI brain and MRA of the head was ordered instead. Overall this is man who presents with acute right facial pain ongoing for the last 3 weeks with an incidental finding of pulmonary edema and minimal hypoxia. Agree with IV diuretic for the time being and cardiology consult. For the facial pain he is already on gabapentin which is clearly not helping at 300mg QID. Can consider increasing this, however, for now will give additional narcotic pain medication. Etiologies include but are not limited to trigeminal neuralgia from inflammation or other vascular processes, tumors, or ophthalmic conjunctivitis (eyes are injected and watery but this is bilateral, arterial compression of the trigeminal nerve root from cerebellar arteries or vertebral artery, veins, MS (nerve demyelination), temporal arteritis. He does have an elevation in inflammatory markers which we will trend in AM. If MRI brain is negative, consider GCA and temporal artery biopsy. Would also consider neurologic consult to weigh in as there are no visual symptoms and this may just be consistent with TMJ disorder. ENT has been consulted, appreciate recommendations. Cont pain control efforts overnight. DO Jagjit Freeman Spoke with Mr. Andujar again and his daughter over the phone about his condition, my role, and the role of temporal artery biopsy. Included in this discussion were the risks, benefits, and alternatives to the procedure, including expectations for intervention and recovery. Complications include bleeding, infection, damage to surrounding structures, scarring and poor wound healing, and need for additional procedures. We also discussed intervention-specific risks including facial nerve injury, which is rare; equivocal or nondiagnostic result, which is perhaps the most important consideration; facial asymmetry not from damage to the nerve but from muscular weakness and fibrosis; and alopecia, whether temporary or permanent. Physical Exam Physical Exam: GENERAL: NAD, AOx3 FACE: Symmetric and intact. Pain with palpation along alevism, forehead, supraorbital area, and along right jaw and neck. EYES: Sclera injected and erythematous. EOMI, reactive and symmetric pupils EARS: Auricles are symmetric, external auditory canals are free of cerumen and patent NOSE: Mild external deviation, mucosa intact; no polyps, purulence, or masses ORAL CAVITY: No trismus; Mucosal intact without lesions, ulcerations, or superficial changes; Exquisitely tender to palpation and manipulation along the soft tissue of the posterior buccal mucosa and retromolar trigone. Tongue mobile OROPHARYNX: No masses or bleeding; No underlying changes of tonsillar pillars and pharyngeal mucosa; Symmetric palatal rise NECK: No masses, lymphadenopathy, or salivary tumors; Trachea midline RESPIRATORY: Symmetric chest expansion, no stridor CARDIAC: Warm and well perfused extremities with bilateral lower extremity edema NEURO: Alert and oriented, CNII-XII grossly intact Procedure Right temporal artery biopsy INDICATIONS: Differential diagnosis includes giant cell arteritis or temporal arteritis, which is an emergent/urgent condition that can threaten vision and c ause sudden blindness, both of which similarly improve dramatically with systemic steroids Details of Procedure: Under local anesthesia with infiltration of the surrounding soft tissue with 2% bupivacaine diluated with 1:100,000 epinephrine, a slightly curvilinear incision, approximately two cm in length, was designed over the temporal artery but superior to Pitanguy's line to avoid inadvertent i njury to the temporal branch of the facial nerve. The surgical site was prepped and the planned incision was created through the skin, subcutaneous tissue, and superficial temporal artery. As the artery was approached, it lost its bounding pulse, likely from vasospasm, but was localized again with doppler ultrasound. It was dissected free, skeletonized, and exposed along a two cm lenght. Each end was clamped, tied, and ligated and approximately 1.5 cm of artery was resected and sent to pathology in a correctly labeled specimen container. Hemostasis was achieved throughtout the case and again confirmed, the surgical site was irrigated, and the deep fascial and muscle layer was reapposed with 3-0 Vicryl while the superficial dermal-epidermal layer was separately closed with 4-0 Monocryl. There were no complications. FINDINGS: Tenderness to palpation and manipulation along the soft tissue of the posterior buccal mucosa and retromolar trigone is improved but still quite bothersome and limits exam intraorally. Additionally, remains diffusely tender which tends to follow the distribution of the branches of his external carotid arteries with migrating pain and intermittent subjective changes in his vision, but with an otherwise normal exam. PG Care Time/CCT Total # of Minutes Spent Total Time Spent with Patient: Total time spent is greater than 50% in coordination of care (as documented) at patient's floor/unit and/or counseling patient: Coding Level of Care Code 52870 SUB INP/OBS CARE 3/50MIN (25 - SIGNIFICANT, SEPARATELY IDENTIFIABLE ) Diagnoses GCA (giant cell arteritis) M31.6 Temporomandibular joint (TMJ) pain M26.629 Vision abnormalities H53.9 Chronic anticoagulation Z79.01 Atrial fibrillation I48.91 Hyperglycemia due to type 2 diabetes mellitus E11.65 Sleep apnea G47.30 Sleep apnea type: unspecified type Morbid obesity E66.01 CPT Codes TEMPORAL ARTERY PROCEDURE, LIGATION/BIOPSY - 87610 ([id number]) Comment 22 modifier - performed over an ICU bed in addition to his body habitus (7) Sleep apnea Sleep apnea type: unspecified type Qualified Code(s): G47.30 - Sleep apnea, unspecified
== END 2022-08-01 16:59 | disposition home or self-care (01) | DRG 252 ==
LOC: ED 08:14 → 1E 10:20 → SUATTDRO 10:20 → 1E 12:02

== ENCOUNTER 2022-08-22 06:26 | Inpatient (IN) ==
[2022-08-22] MEDS ORDERED: cefTRIAXone SODIUM 2,000 MG/70 ML BAG IV STA (07:24)
--- NOTE | 2022-08-22 07:28 | Emergency Department Note ---
Impression & Plan Cellulitis, Hypoxia, Elevated troponin, Diabetic foot ulcer ED Provider Note NAME: CECILE KENDALL AGE: 72 SEX: M : 1950 ARRIVES VIA: Ambulance INFORMANT: Patient ED PROVIDER(S): Pedro Klein DO CHIEF COMPLAINT: Swelling and erythema bilateral lower extremities HPI: Patient is a 72-year-old male who presents to the ER for redness in his bilateral lower extremities. He notes he has been having drainage for the past 3 days. Left leg has become erythematous over the course of the same time as well. He has a wound on the right first toe which is draining. He denies any fevers. They note that he has been very weak and tired. Blood sugars have been appropriate per the report from EMS and alf. He denies any chest pain or shortness of breath. No dysuria, urgency, or frequency. No other exacerbating or remitting factors. He notes that he has been on antibiotics previously but nothing recently for the legs. PAST MEDICAL HISTORY:See Below PAST SURGICAL HISTORY:See Below FAMILY HISTORY:See Below SOCIAL HISTORY:See Below HOME MEDICATIONS:See Below ALLERGIES:See Below VITALS:See Below PHYSICAL EXAMINATION: GENERAL: Sitting up in bed, alert, morbidly obese, disheveled EYE EXAM: normal conjunctiva. PERRL and EOM's grossly intact. OROPHARYNX: no exudate, no erythema, lips, buccal mucosa, and tongue normal and mucous membranes are moist NECK: supple, no nuchal rigidity, no adenopathy, non-tender LUNGS: Clear to auscultation. Normal chest wall mechanics HEART: no murmurs, S1 normal and S2 normal ABDOMEN: abdomen soft, non-tender, normo-active bowel sounds, no masses, no rebound or guarding. BACK: Back is symmetrical on inspection and there is no deformity, no midline tenderness, no CVA tenderness. SKIN: no rashes and no bruising UPPER EXTREMITIES: upper extremities are grossly normal. LOWER EXTREMITIES: Pitting edema in the bilateral lower extremities with erythema around the left foot ankle posterior and anterior calf. Right foot with erythema of the right first toe with a 3 mm wound/ulcer on the dorsal medial aspect of the toe without drainage. NEURO EXAM: Normal sensorium, cranial nerves II-XII grossly intact, normal speech, no gross weakness of arms, no gross weakness of legs. MEDICAL DECISION MAKING: Patient is a 72-year-old male morbidly obese who presents ER for above-stated complaint. IV was established blood work is obtained. Labs show mild leukocytosis at nearly 11. No anemia. Platelets with mild thrombocytopenia. BMP is unremarkable. T. bili slightly up at 1.8. LFTs were unremarkable. Troponin mildly elevated. Pro-Sreedhar was normal. UA was clean. COVID-negative. Does have an obvious wound on the right foot with erythema as well as Fair amount erythema on the left devi. External records were reviewed. He was given IV antibiotics. Chest x-ray per my read shows no focal infiltrate. X-ray of toe shows no osteo-. Patient was updated bedside. Discussed with the [facility] Álvaro for further evaluation and admission. external records were reviewed. Triage Nursing notes reviewed. Limited review of prior medical records performed Vital Signs: reviewed and remarkable for no significant abnormalities Differential diagnosis: Infection, dehydration, metabolic abnormality, hypo/hyperglycemia, electrolyte disturbance, anemia, hypoxia, cardiac sources, intracerebral event, toxicologic, neurologic, as well as other pathologies. ER treatment provided: See below Diagnostics interpreted by me include EKG and cardiac monitoring as listed below: -Cardiac Monitoring: An order was placed for continuous cardiac monitoring. The monitor shows a rate of 80 with sinus rhythm. -ECG: A-fib rate 81 Left axis PVCs present QTc 466 -Laboratory studies:Interpreted by me as stated above in MDM and shown below. Imaging studies: Xrays: As interpreted by me: Portable AP upright 1 view chest shows no focal infiltrate X-rays of the toe showed no obvious osteo- CTs show: none Consultation(s): Discussed with Patsy from [facility] for further evaluation Procedures:none Critical Care: None Past Med/Surg History Medical History (Updated 08/22/22 @ 13:12 by Pedro Klein DO) Arthritis Atrial flutter Bifascicular block CAD (coronary artery disease) Cardiac pacemaker in situ Cardiomyopathy Chronic anticoagulation Chronic diastolic CHF (congestive heart failure) Chronic venous insufficiency CKD (chronic kidney disease) stage 3, GFR 30-59 ml/min Claustrophobia Closed fracture of thyroid cartilage COPD, moderate COVID-19 Depression Diabetes mellitus, type 2 insulin pump Entropion of left lower eyelid Fatty liver Gout Hyperlipidemia Hypertension Hypothyroidism Iatrogenic pulmonary embolism Interstitial lung disease Morbid obesity MRSA infection Nephrolithiasis Nocturnal hypoxemia SALAS (obstructive sleep apnea) Osteoarthritis Paroxysmal atrial fibrillation Prolonged QT interval Pulmonary embolism B/L- 5+ years ago Sarcoidosis possible- evaluated by pulmonary; felt no active sarcoidosis and would not merit steroid therapy given weight/diabetic state. Sleep apnea CPAP Solitary pulmonary nodule Tachy-sherry syndrome Tachycardia induced cardiomyopathy "prior EF of 25% while in aflutter, subsequently normal in NSR" Surgical History H/O cardiac radiofrequency ablation H/O prior ablation treatment History of arthroscopic knee surgery History of bronchoscopy History of cataract surgery local anesthesia only per pt History of cholecystectomy History of extraction of renal calculus History of lung surgery thoracoscopy, right VATS, wedge resection History of umbilical hernia repair Hx of carpal tunnel repair Pacemaker Implanted 02/2017 secondary to Sinus node dysfunction/tachy sherry syndrome/3rd degree AVB [employer] Pacer check 12/24/17 Status post incision and drainage Family History Mother Cancer Social History Smoking Status: Never smoker Second Hand Exposure: No; Hx Alcohol Use: No Hx Substance Use: No Preferred Language: Ukrainian Communication Ability: Effective Visual Impairment: Limited Hearing Ability: Normal Soc Analyst Required: No Beliefs That Will Affect Care: None marital status: Single Current Living Situation: [facility] Current Living Situation Comment: [facility] current occupational status: retired How many Children do You have: 1 How many Children do You have Comment: children are not involved with care much per pt Feels Safe at Home: Yes Safety Concerns: Feels Safe At This Time Diet Comment: FLUID RESTRICTION during the past year weight has: other Assistive Devices: Oxygen - at Night and Walker Allergies Allergies Allergy/AdvReac Type Severity Reaction Status Date / Time No Known Allergies Allergy Verified 06/15/22 15:07 Home Meds Home Medications Medication Instructions Recorded Confirmed acetaminophen 325 mg tablet 650 mg PO Q4 PRN Fever Or Pain 06/15/22 08/22/22 (Tylenol) albuterol sulfate 90 mcg/actuation 2 puff inhalation Q4 PRN Shortness 06/15/22 08/22/22 aerosol inhaler Of Breath Or Wheezing allopurinol 300 mg tablet 300 mg PO DAILY 06/15/22 08/22/22 apixaban 5 mg tablet 5 mg PO Q12 06/15/22 08/22/22 aspirin 81 mg tablet,delayed 81 mg PO DAILY 06/15/22 08/22/22 release atorvastatin 10 mg tablet 10 mg PO DAILY 06/15/22 08/22/22 bupropion HCl 150 mg 24 hr tablet, 150 mg PO DAILY 06/15/22 08/22/22 extended release cholecalciferol (vitamin D3) 25 50 mcg PO DAILY 06/15/22 08/22/22 mcg (1,000 unit) tablet (Vitamin D3) digoxin 125 mcg (0.125 mg) tablet 125 mcg PO DAILY 06/15/22 08/22/22 duloxetine 60 mg capsule,delayed 60 mg PO DAILY 06/15/22 08/22/22 release epinephrine 0.3 mg/0.3 mL 0.3 mg IM DIRECTED PRN Allergic 06/15/22 08/22/22 injection, auto-injector Reaction erythromycin 5 mg/gram (0.5 %) eye 1 applic OPB DIRECTED 06/15/22 08/22/22 ointment gabapentin 300 mg capsule 300 mg PO QID 06/15/22 08/22/22 levothyroxine 125 mcg tablet 250 mcg PO DAILY 06/15/22 08/22/22 lidocaine 5 % topical patch 1 patch topical DAILY 06/15/22 08/22/22 loratadine 10 mg tablet 20 mg PO DAILY PRN .allergies 06/15/22 08/22/22 magnesium oxide 420 mg tablet 420 mg PO DAILY 06/15/22 08/22/22 multivitamin 1 tab PO DAILY 06/15/22 08/22/22 naphazoline 0.025 %-pheniramine 2 drp ophthalmic (eye) Q6 PRN .. 06/15/22 08/22/22 0.3 % eye drops (Naphcon-A) nitroglycerin 0.4 mg sublingual 0.4 mg sublingual DIRECTED PRN 06/15/22 08/22/22 tablet (Nitrostat) Chest Pain nystatin 100,000 unit/gram topical 1 applic topical BID 06/15/22 08/22/22 powder omeprazole 20 mg capsule,delayed 20 mg PO DAILY 06/15/22 08/22/22 release polyvinyl alcohol-povidone (PF) 1 drp OPB DIRECTED 06/15/22 08/22/22 1.4 %-0.6 % eye drops in a dropperette (Refresh Classic (PF)) sennosides 8.6 mg tablet (senna) 8.6 mg PO BID 06/15/22 08/22/22 insulin glargine 100 unit/mL 65 unit subcut PM 07/29/22 08/22/22 subcutaneous solution insulin glargine 100 unit/mL 105 unit subcut QAM 07/29/22 08/22/22 subcutaneous solution insulin regular human 100 unit/mL 1 sliding scale dose subcut 07/29/22 08/22/22 (3 mL) subcutaneous pen (Novolin R USEASDIRECTD FlexPen) prednisone 50 mg tablet 50 mg PO DAILY 08/22/22 08/22/22 Previous Rx's Medication Instructions Recorded metoprolol succinate 50 mg 100 mg PO BID #60 tabs 06/23/22 tablet,extended release 24 hr furosemide 40 mg tablet 40 mg PO BID #30 tabs 08/01/22 insulin regular human 100 unit/mL 14 unit (0.14 mL) subcut TIDM #10 08/01/22 injection solution (Novolin R mL Regular U-100 Insulin) potassium chloride 20 mEq 20 meq PO BID #60 tabs 08/01/22 tablet,extended release(part/cryst) Results & Data (ED) Vital Signs Vital Signs - 24 hr 08/22/22 06:36 08/22/22 07:15 08/22/22 08:43 Temperature 36.5 C Temperature Source Oral Pulse Rate 86 Pulse Rate [Right Finger] 94 H Respiratory Rate 20 20 Respiratory Effort / Characteristics Non-Labored Spontaneous Non-Labored Respiratory Depth Normal Normal Respiratory Pattern Regular Blood Pressure 109/79 Blood Pressure [Left Arm] 117/89 Blood Pressure Mean 89 Blood Pressure Mean [Left Arm] 98 Blood Pressure Position Sitting Pulse Oximetry 94 93 Oxygen Delivery Method Room Air Room Air Room Air Oxygen Flow Rate Sepsis Recent Fever Within 48 Hours No Sepsis New/Unexplained Change in Mental Status N/A Sepsis Action Taken by Nursing No Action Required 08/22/22 09:15 Temperature Temperature Source Pulse Rate Pulse Rate [Right Finger] Respiratory Rate Respiratory Effort / Characteristics Respiratory Depth Respiratory Pattern Blood Pressure Blood Pressure [Left Arm] Blood Pressure Mean Blood Pressure Mean [Left Arm] Blood Pressure Position Pulse Oximetry 76 L Oxygen Delivery Method Nasal Cannula Oxygen Flow Rate 4 Sepsis Recent Fever Within 48 Hours Sepsis New/Unexplained Change in Mental Status Sepsis Action Taken by Nursing Laboratory Data 08/22/22 07:15 08/22/22 07:15 Lab Results 08/22/22 08/22/22 08/22/22 Range/Units 07:15 07:15 07:15 WBC 10.94 H (4.8-10.8) K/ul RBC 4.72 (4.70-6.10) M/uL Hgb 12.7 L (14.0-18.0) g/dl Hct 40.8 L (42.0-52.0) % MCV 86.4 (80.0-100.0) fL MCH 26.9 (25.0-34.0) pg MCHC 31.1 L (32.0-36.0) g/dL RDW Std Deviation 50.6 H (36.4-46.3) fL RDW Coeff of Baldo 16.3 H (11.5-14.5) % Plt Count 111 L (130-400) K/uL MPV 11.2 (9.4-12.4) fL Immature Gran % (Auto) 0.8 % Neut % (Auto) 75.2 % Lymph % (Auto) 17.1 % [place] % (Auto) 5.7 % Eos % (Auto) 1.1 % Baso % (Auto) 0.1 % Neut # (Auto) 8.23 H (1.40-6.50) K/uL Lymph # (Auto) 1.87 (1.2-3.4) K/uL [place] # (Auto) 0.62 H (0.11-0.59) K/uL Eos # (Auto) 0.12 (0-0.50) K/uL Baso # (Auto) 0.01 (0-0.2) K/uL Immature Gran # (Auto) 0.09 (0.01-0.20) K/uL Sodium 142 (136-145) mmol/L Potassium 4.3 (3.5-5.1) mmol/L Chloride 102 (98-107) mmol/L Carbon Dioxide 35 H (21-32) mmol/L Anion Gap 5 (3-11) BUN 36 H (6-23) mg/dl Creatinine 1.17 (0.6-1.4) mg/dl Est Cr Clr Drug Dosing 88.2 ml/min Est GFR ( Amer) 72.8 ml/min Est GFR (Non-Af Amer) 62.8 ml/min BUN/Creatinine Ratio 30.8 H (10-20) Glucose 93 (70-99(Fasting)) mg/dl Lactate (0.4-2.0) mmol/L Calcium 9.3 (8.5-10.1) mg/dl Magnesium 2.3 (1.7-2.4) mg/dl Total Bilirubin 1.8 H (0.2-1.0) mg/dl Direct Bilirubin 0.4 H (0-0.2) mg/dl AST 37 (13-39) U/L ALT 62 H (7-52) U/L Alkaline Phosphatase 72 (34-104) U/L Troponin I High Sens 21.2 H (0-20) pg/ml Total Protein 6.5 (6.0-8.3) gm/dl Albumin 3.6 (3.4-5.0) gm/dl Procalcitonin < 0.05 (0-0.5) ng/ml Urine Color Urine Appearance (Clear) Urine pH (4.5-7.5) Ur Specific [place] (1.000-1.030) Urine Protein (Negative) Urine Glucose (UA) (Negative) Urine Ketones (Negative) Urine Blood (Negative) Urine Nitrite (Negative) Urine Bilirubin (Negative) Urine Urobilinogen (Negative) Ur Leukocyte Esterase (Negative) SARS-CoV-2, RNA, NAAT (NEGATIVE) 08/22/22 08/22/22 08/22/22 Range/Units 08:03 08:10 08:23 WBC (4.8-10.8) K/ul RBC (4.70-6.10) M/uL Hgb (14.0-18.0) g/dl Hct (42.0-52.0) % MCV (80.0-100.0) fL MCH (25.0-34.0) pg MCHC (32.0-36.0) g/dL RDW Std Deviation (36.4-46.3) fL RDW Coeff of Baldo (11.5-14.5) % Plt Count (130-400) K/uL MPV (9.4-12.4) fL Immature Gran % (Auto) % Neut % (Auto) % Lymph % (Auto) % [place] % (Auto) % Eos % (Auto) % Baso % (Auto) % Neut # (Auto) (1.40-6.50) K/uL Lymph # (Auto) (1.2-3.4) K/uL [place] # (Auto) (0.11-0.59) K/uL Eos # (Auto) (0-0.50) K/uL Baso # (Auto) (0-0.2) K/uL Immature Gran # (Auto) (0.01-0.20) K/uL Sodium (136-145) mmol/L Potassium (3.5-5.1) mmol/L Chloride (98-107) mmol/L Carbon Dioxide (21-32) mmol/L Anion Gap (3-11) BUN (6-23) mg/dl Creatinine (0.6-1.4) mg/dl Est Cr Clr Drug Dosing ml/min Est GFR ( Amer) ml/min Est GFR (Non-Af Amer) ml/min BUN/Creatinine Ratio (10-20) Glucose (70-99(Fasting)) mg/dl Lactate 1.0 (0.4-2.0) mmol/L Calcium (8.5-10.1) mg/dl Magnesium (1.7-2.4) mg/dl Total Bilirubin (0.2-1.0) mg/dl Direct Bilirubin (0-0.2) mg/dl AST (13-39) U/L ALT (7-52) U/L Alkaline Phosphatase (34-104) U/L Troponin I High Sens (0-20) pg/ml Total Protein (6.0-8.3) gm/dl Albumin (3.4-5.0) gm/dl Procalcitonin (0-0.5) ng/ml Urine Color Yellow Urine Appearance Clear (Clear) Urine pH 7.0 (4.5-7.5) Ur Specific [place] 1.014 (1.000-1.030) Urine Protein Negative (Negative) Urine Glucose (UA) Negative (Negative) Urine Ketones Negative (Negative) Urine Blood Negative (Negative) Urine Nitrite Negative (Negative) Urine Bilirubin Negative (Negative) Urine Urobilinogen Negative (Negative) Ur Leukocyte Esterase Negative (Negative) SARS-CoV-2, RNA, NAAT NEGATIVE (NEGATIVE) Administered Medications Insulin Aspart (Insulin Aspart Per Unit) 0 units SC ACHS OFE Stop: 09/21/22 11:29 Last Admin: 08/22/22 12:48 Dose: Not Given Documented By: LUIS Discontinued Medications Furosemide (Furosemide 40 Mg/4 Ml Vial) 40 mg IV ONE ONE Stop: 08/22/22 10:46 Last Admin: 08/22/22 12:44 Dose: Not Given Documented By: LUIS Furosemide (Furosemide 40 Mg/4 Ml Vial) 40 mg IV [id number] ONE Stop: 08/22/22 11:12 Last Admin: 08/22/22 12:50 Dose: 40 mg Documented By: LUIS Ceftriaxone Sodium (Rocephin) 2,000 mg in 70 mls @ 140 mls/hr IV NOW STA Stop: 08/22/22 07:53 Last Infusion: 08/22/22 09:16 Dose: 0 mls/hr Documented By: NRZoe Admin: 08/22/22 08:39 Dose: 140 mls/hr Documented By: SRIRAM Insulin Human Regular (Novolin-R Insulin Per Unit Charge) 14 units SQ TIDM OFE Stop: 09/21/22 11:59 Last Admin: 08/22/22 12:17 Dose: Not Given Documented By: LUIS Imaging Data Radiologist's Impression: Chest X-Ray 08/22/22 07:22 XR chest 1V portable HISTORY: 72 years-old Male Sepsis acute sepsis COMPARISON: 07/29/2022 TECHNIQUE: AP view of the chest FINDINGS: Cardiac silhouette is enlarged. Left subclavian pacer. Pulmonary vascular congestion. No pneumothorax. Probable trace pleural effusions. Mild bibasilar densities favoring atelectasis. Degenerative changes of the shoulders and spine. IMPRESSION: Cardiomegaly with pulmonary vascular congestion. ACT 112: Negative or not required by law. The above report was generated using voice recognition software. It may contain grammatical, syntax or spelling errors. Electronically signed by: Bartolome Menchaca M.D. 08/22/2022 8:02 AM Toe X-Ray 08/22/22 07:22 RIGHT FIRST TOE 3 VIEWS CLINICAL HISTORY: Sepsis. First toe infection. FINDINGS: 3 views of the right first toe are correlated with radiographs of the right foot dated 11/01/2019. The skeletal structures are osteopenic. No acute fracture is seen. There is no bony erosion or periostitis. Osteoarthritic change is noted at the first metatarsophalangeal and interphalangeal joints. Soft tissue edema is present in the forefoot and first toe. No soft tissue gas is seen. There is no radiodense foreign body. Advanced atherosclerotic calcification is noted in regional arteries. There is a plantar heel spur seen on the lateral view. IMPRESSION: 1. Soft tissue swelling with no acute bony abnormality identified. 2. Osteopenia and arthritic change as above. Electronically signed by: Anupam Gonzalez M.D. 08/22/2022 8:00 AM Discharge Plan Visit Data Chief Complaint: Swelling/Edema to Extremity ED Provider: Pedro Klein Discharge Problem: Cellulitis, Hypoxia, Elevated troponin, Diabetic foot ulcer Patient Disposition: Admitted As Inpatient Discharge Instructions Interventions: ED Discharge Assessment Last Done: 08/22/22 10:43
[2022-08-22 07:50] LABS: Albumin Level 3.6 gm/dl (3.4-5.0); Bilirubin Direct 0.4 mg/dl (0-0.2); Bilirubin,Total 1.8 mg/dl (0.2-1.0); Calcium 9.3 mg/dl (8.5-10.1); Magnesium 2.3 mg/dl (1.7-2.4); Potassium 4.3 mmol/L (3.5-5.1)
[2022-08-22 07:56] LABS: BUN Creatinine Ratio 30.8 (10-20); Creatinine Clr Calc Pharmacy 88.2 ml/min; Est GFR (African American) 72.8 ml/min; Est GFR (Non-African American) 62.8 ml/min; Total Protein 6.5 gm/dl (6.0-8.3)
[2022-08-22 07:59] LABS: Troponin I High Sensitivity 21.2 pg/ml (0-20)
--- NOTE | 2022-08-22 08:02 | XRay Report ---
RIGHT FIRST TOE 3 VIEWS CLINICAL HISTORY: Sepsis. First toe infection. FINDINGS: 3 views of the right first toe are correlated with radiographs of the right foot dated 10/31. The skeletal structures are osteopenic. No acute fracture is seen. There is no bony erosion or periostitis. Osteoarthritic change is noted at the first metatarsophalangeal and interphalangeal sanjana nts. Soft tissue edema is present in the forefoot and first toe. No soft tissue gas is seen. There is no radiodense foreign body. Advanced atherosclerotic calcification is noted in regional arteries. Th ere is a plantar heel spur seen on the lateral view. IMPRESSION: 1. Soft tissue swelling with no acute bony abnormality identified. 2. Osteopenia and arthritic change as above. Electronically signed by: Anupam Gonzalez M.D. 08/22/2022 8:00 AM
--- NOTE | 2022-08-22 08:04 | XRay Report ---
XR chest 1V portable HISTORY: 72 years-old Male Sepsis acute sepsis COMPARISON: 07/29/2022 TECHNIQUE: AP view of the chest FINDINGS: Cardiac silhouette is enlarged. Left subclavian pacer. Pulmonary vascular congestion. No pneumothorax . Probable trace pleural effusions. Mild bibasilar densities favoring atelectasis. Degenerative ivory es of the shoulders and spine. IMPRESSION: Cardiomegaly with pulmonary vascular congestion. ACT 112: Negative or not required by law. The above report was generated using voice recognition software. It may contain grammatical, syntax o r spelling errors. Electronically signed by: Bartolome Menchaca M.D. 08/22/2022 8:02 AM
[2022-08-22 08:26] LABS: Basophils # (auto) 0.01 K/uL (0-0.2); Basophils % (auto) 0.1 %; Eosinophils # (auto) 0.12 K/uL (0-0.50); Eosinophils % (auto) 1.1 %; Hematocrit (blood only) 40.8 % (42.0-52.0); Hemoglobin 12.7 g/dl (14.0-18.0); Immature Granulocytes # (auto) 0.09 K/uL (0.01-0.20); Immature Granulocytes % (auto) 0.8 %; Lymphocytes # (auto) 1.87 K/uL (1.2-3.4); Lymphocytes % (auto) 17.1 %; Mean Corpuscular Hemoglobin 26.9 pg (25.0-34.0); Mean Corpuscular Hgb Conc 31.1 g/dL (32.0-36.0); Mean Corpuscular Volume 86.4 fL (80.0-100.0); Mean Platelet Volume 11.2 fL (9.4-12.4); Monocytes # (auto) 0.62 K/uL (0.11-0.59); Monocytes % (auto) 5.7 %; Neutrophils # (auto) 8.23 K/uL (1.40-6.50); Neutrophils % (auto) 75.2 %; Platelet Count 111 K/uL (130-400); RDW Coefficient of Variation 16.3 % (11.5-14.5); RDW Standard Deviation 50.6 fL (36.4-46.3); Red Blood Count 4.72 M/uL (4.70-6.10); White Blood Count 10.94 K/ul (4.8-10.8)
[2022-08-22 08:51] LABS: Appearance Urine Clear (Clear); Bilirubin Urine Negative (Negative); Blood Urine Negative (Negative); Color Urine Yellow; Glucose Urine UA Negative (Negative); Ketones Urine Negative (Negative); Leukocyte Esterase Urine Negative (Negative); Nitrite Urine Negative (Negative); Protein Urine Negative (Negative); Specific Gravity Urine 1.014 (1.000-1.030); Urobilinogen Urine Negative (Negative)
--- NOTE | 2022-08-22 09:36 | History & Physical Report ---
Date of Service August 22, 2022 Assessment & Plan (1) Acute heart failure with preserved ejection fraction: (2) Hypoxia: (3) Interstitial lung disease: (4) COPD, moderate: Plan: - [facility] - Will follow oxygen requirements, at baseline the patient wears 2 L at bedtime via NC, CXR shows pulmonary congestion, and exam reveals crackles bilateral at the bases - Give 1 extra dose of Lasix IV 40 mg now, continue on Lasix40 mg p.o. twice daily unless determination is made for more IV Lasix, unknown when last metolazone dose was given. Dry weight of 340 pounds. (5) Cellulitis: Plan: - Possible over the right lower extremity, was given dose of IV ceftriaxone in the ER, will hold on further antibiotics for now as this is possibly secondary to slight volume overload - White count is 10.94, afebrile - Currently on chronic steroids for recent diagnosis of temporal arteritis during last hospital stay likely adding to fluid retention - scheduled to go from 50 mg prednisone daily to 40 mg daily on 08/25/22 (6) Diabetes mellitus, type 2: Plan: - Last A1C was 11.6 in 06/16/22 - Outpatient since last admission has required increased insulin secondary to high steroid dosing for temporal arteritis: Continue Lantus 105 U QAM and 65 QPM, TID uses 14 U Novolog with meals plus sliding scale (7) Chronic anticoagulation: (8) Paroxysmal atrial fibrillation: (9) Pacemaker: (10) Hyperlipidemia: (11) Cardiac pacemaker in situ: Plan: - Pt was supposed to have follow up appt with Cardiology today - Continue eliquis for afib - Possible volume up currently -- lasix as above - Continue heart regimen with digoxin, metoprolol succinate, atorvastatin -Last echo was reviewed personally by myself from 07/29/2025 showing mild LVH, LV systolic function was normal however difficult to determine due to frequent PVCs -CXR reviewed as above above, showing pulmonary vascular congestion -BP appears stable currently at 149/92 (12) Gout: Plan: -History of such, may continue allopurinol, can consider colchicine however patient denies any current pain in the right great toe, also currently on prednisone taper DVT PPx: - teds, scds, Eliquis CODE: Full code Dispo: From home, likely to remain in the hospital x 1-2 days A total of 76 minutes were spent with greater than 50% of that time face to face with the patient, personally reviewing all current laboratories, imaging s tudies, past medication reconciliation, outpatient chart review, and discussion with specialists to collaborate care for the patient with attending. Please see attending documentation for corrections and/or additions. History of Present Illness Chief Complaint: Redness and swelling of the right lower extremity Primary Care Provider: [facility] This is a 72-year-old male with PMHx of DM type II, CAD, chronic diastolic CHF, cardiac pacemaker in situ, paroxysmal A-fib on chronic anticoagulation, CKD, SALAS and nocturnal hypoxemia wearing supplemental O2, sarcoidosis, morbid obesity, interstitial lung disease, who presents from [facility] to the emergency room for complaints of right lower extremity swelling and edema with some drainage from area of the foot. While visiting the patient he appears to be short of breath, sitting there with huffing and puffing. He is on 4 L of oxygen via OxyMask however sats are maintaining at 97% on room air. He denies specific shortness of breath. He notes that his left lower leg is draining some clear fluid from a open blister, and that it appears more red than normal. He never has any pain in his lower extremities due to polyneuropathy. His right great toe also is more red currently, and admits to a history of gout, but denies any specific pain secondary to polyneuropathy again. He denies any recent fevers chills or sweats. Patient has been able to walk on his feet with use of a walker, denies any recent falls. He states he has been taking his medication as directed, include Lasix 40 mg po BID, and metolazone as needed however he cannot recall if he has taken this recently. He states his dry weight is approximately 340 pounds, but he has recently gained some weight. Patient was recently hospitalized here from 07/29/22 to 08/01/2022 for evaluation of right ear jaw and head pain with hypoxia found to have temporal arteritis along with acute on chronic diastolic heart failure. He has been on a chronic high-dose prednisone taper since then, currently on 50 mg/day, and scheduled to transition to 40 mg daily next Thursday. Has been following up with his eye doctor as an outpatient. He has been a resident of [facility] for about 3 to 4 years per his report. Allergies Allergy/AdvReac Type Severity Reaction Status Date / Time No Known Allergies Allergy Verified 06/15/22 15:07 Home Medications Medication Instructions Recorded Confirmed Type Vancomycin Fortified 10mg/Ml 1 drp OPB QID 06/15/22 08/22/22 History acetaminophen 325 mg tablet 650 mg PO Q4 PRN Fever Or Pain 06/15/22 08/22/22 History (Tylenol) albuterol sulfate 90 mcg/actuation 2 puff inhalation Q4 PRN Shortness 06/15/22 08/22/22 History aerosol inhaler Of Breath Or Wheezing allopurinol 300 mg tablet 300 mg PO DAILY 06/15/22 08/22/22 History apixaban 5 mg tablet 5 mg PO Q12 06/15/22 08/22/22 History aspirin 81 mg tablet,delayed 81 mg PO DAILY 06/15/22 08/22/22 History release atorvastatin 10 mg tablet 10 mg PO DAILY 06/15/22 08/22/22 History bupropion HCl 150 mg 24 hr tablet, 150 mg PO DAILY 06/15/22 08/22/22 History extended release cholecalciferol (vitamin D3) 25 50 mcg PO DAILY 06/15/22 08/22/22 History mcg (1,000 unit) tablet (Vitamin D3) digoxin 125 mcg (0.125 mg) tablet 125 mcg PO DAILY 06/15/22 08/22/22 History duloxetine 60 mg capsule,delayed 60 mg PO DAILY 06/15/22 08/22/22 History release epinephrine 0.3 mg/0.3 mL 0.3 mg IM DIRECTED PRN Allergic 06/15/22 08/22/22 History injection, auto-injector Reaction erythromycin 5 mg/gram (0.5 %) eye 1 applic OPB DIRECTED 06/15/22 08/22/22 History ointment gabapentin 300 mg capsule 300 mg PO QID 06/15/22 08/22/22 History levothyroxine 125 mcg tablet 250 mcg PO DAILY 06/15/22 08/22/22 History lidocaine 5 % topical patch 1 patch topical DAILY 06/15/22 08/22/22 History loratadine 10 mg tablet 20 mg PO DAILY PRN .allergies 06/15/22 08/22/22 History magnesium oxide 420 mg tablet 420 mg PO DAILY 06/15/22 08/22/22 History multivitamin 1 tab PO DAILY 06/15/22 08/22/22 History naphazoline 0.025 %-pheniramine 2 drp ophthalmic (eye) Q6 PRN .. 06/15/22 08/22/22 History 0.3 % eye drops (Naphcon-A) nitroglycerin 0.4 mg sublingual 0.4 mg sublingual DIRECTED PRN 06/15/22 08/22/22 History tablet (Nitrostat) Chest Pain nystatin 100,000 unit/gram topical 1 applic topical BID 06/15/22 08/22/22 History powder omeprazole 20 mg capsule,delayed 20 mg PO DAILY 06/15/22 08/22/22 History release polyvinyl alcohol-povidone (PF) 1 drp OPB DIRECTED 06/15/22 08/22/22 History 1.4 %-0.6 % eye drops in a dropperette (Refresh Classic (PF)) sennosides 8.6 mg tablet (senna) 8.6 mg PO BID 06/15/22 08/22/22 History metoprolol succinate 50 mg 100 mg PO BID #60 tabs 06/23/22 08/22/22 Rx tablet,extended release 24 hr insulin glargine 100 unit/mL 65 unit subcut PM 07/29/22 08/22/22 History subcutaneous solution insulin glargine 100 unit/mL 105 unit subcut QAM 07/29/22 08/22/22 History subcutaneous solution insulin regular human 100 unit/mL 1 sliding scale dose subcut 07/29/22 08/22/22 History (3 mL) subcutaneous pen (Novolin R USEASDIRECTD FlexPen) furosemide 40 mg tablet 40 mg PO BID #30 tabs 08/01/22 08/22/22 Rx insulin regular human 100 unit/mL 14 unit (0.14 mL) subcut TIDM #10 08/01/22 08/22/22 Rx injection solution (Novolin R mL Regular U-100 Insulin) potassium chloride 20 mEq 20 meq PO BID #60 tabs 08/01/22 08/22/22 Rx tablet,extended release(part/cryst) Past Med/Surg History Medical History (Updated 08/22/22 @ 11:34 by Marina Freeman DO) Arthritis Atrial flutter Bifascicular block CAD (coronary artery disease) Cardiac pacemaker in situ Cardiomyopathy Chronic anticoagulation Chronic diastolic CHF (congestive heart failure) Chronic venous insufficiency CKD (chronic kidney disease) stage 3, GFR 30-59 ml/min Claustrophobia Closed fracture of thyroid cartilage COPD, moderate COVID-19 Depression Diabetes mellitus, type 2 insulin pump Entropion of left lower eyelid Fatty liver Gout Hyperlipidemia Hypertension Hypothyroidism Iatrogenic pulmonary embolism Interstitial lung disease Morbid obesity MRSA infection Nephrolithiasis Nocturnal hypoxemia SALAS (obstructive sleep apnea) Osteoarthritis Paroxysmal atrial fibrillation Prolonged QT interval Pulmonary embolism B/L- 5+ years ago Sarcoidosis possible- evaluated by pulmonary; felt no active sarcoidosis and would not merit steroid therapy given weight/diabetic state. Sleep apnea CPAP Solitary pulmonary nodule Tachy-sherry syndrome Tachycardia induced cardiomyopathy "prior EF of 25% while in aflutter, subsequently normal in NSR" Surgical History H/O cardiac radiofrequency ablation H/O prior ablation treatment History of arthroscopic knee surgery History of bronchoscopy History of cataract surgery local anesthesia only per pt History of cholecystectomy History of extraction of renal calculus History of lung surgery thoracoscopy, right VATS, wedge resection History of umbilical hernia repair Hx of carpal tunnel repair Pacemaker Implanted 02/2017 secondary to Sinus node dysfunction/tachy sherry syndrome/3rd degree AVB [employer] Pacer check 12/24/17 Status post incision and drainage Family History Mother Cancer Social History Smoking Status: Never smoker Second Hand Exposure: No; Hx Alcohol Use: No Hx Substance Use: No Preferred Language: Macedonian Communication Ability: Effective Visual Impairment: Limited Hearing Ability: Normal Rn International Required: No Beliefs That Will Affect Care: None marital status: Single Current Living Situation: Retirement Current Living Situation Comment: [facility] current occupational status: retired How many Children do You have: 1 How many Children do You have Comment: children are not involved with care much per pt Feels Safe at Home: Yes Diet Comment: FLUID RESTRICTION during the past year weight has: other Assistive Devices: Walker Review of Systems Review of Systems: Constitutional: No fever, sweats or chills Eyes: No diplopia, no worsening or blurred vision ENT: normal hearing, no trouble swallowing Respiratory: No cough, sputum, dyspnea at rest or on exertion Cardiovascular: No chest pain, tightness or palpitations Abdomen: No pain, nausea, vomiting, diarrhea or constipation Musculoskeletal: + Polyneuropathy, as per HPI with edema and erythema of the left lower leg over top of the devi area, chronic redness on the dorsal aspect of the left foot, right great toe with redness,, chronic toenail fungus, otherwise no joint pain, calf pain Neurologic: No weakness, numbness/tingling, or balance problems, uses a walker for ambulation Psychiatric: History of depression on medication Skin: + Weeping and few spots over bilateral lower extremities, erythema as described above on legs. Physical Exam 2 Physical Exam: General: awakens to verbal stimuli, alert, no apparent distress, morbidly obese with BMI of 52 Head: Normocephalic, atraumatic ENT: PERRL, EOMI, no pharyngeal exudate, mucous membranes moist Chest: Transition from 4 L on oxy mask to room air during my visit with maintaining sats at 98%, appears to be breathing heavier however denies any shortness of breath, + crackles at bases bilaterally, faint expiratory wheeze in the left upper lobe. Cardiac: Difficult to auscultate due to body habitus, regular rate and rhythm, + few PVCs, no murmur, no JVD, normal peripheral pulses, good capillary refill Abdominal: NABS x 4 quadrants, soft, morbidly obese, nondistended nontender to palpation, no rebound or guarding Extremities: Left lower extremity devi appears erythematous with an area of weeping serosanguineous fluid, dorsal aspect of the left foot appears chronically red, chronic venous stasis changes, bilateral onychomycosis, right great toe is dark red appears swollen concerning for gout however has no pain with palpation due to polyneuropathy, otherwise normal inspection, calfs nontender to palpation Psych: Normal mood and affect Neuro: AAO x 3, strength intact bilaterally and rated 5/5, no motor deficits, speech is clear, no peripheral sensory deficits Results & Data Results & Data ([facility]) Vital Signs (Past 12 Hours) Vital Signs Temp Pulse Pulse Resp BP BP Pulse Ox 08/22/22 09:15 76 L 08/22/22 08:43 94 H 20 117/89 93 08/22/22 07:15 08/22/22 06:36 36.5 C 86 20 109/79 94 O2 Del Method O2 Flow Rate 08/22/22 09:15 Nasal Cannula 4 08/22/22 08:43 Room Air 08/22/22 07:15 Room Air 08/22/22 06:36 Room Air Laboratory Results 08/22/22 08:33 Aerobic Blood Culture - Pending Blood Anaerobic Blood Culture - Pending 08/22/22 07:15 Aerobic Blood Culture - Pending Blood Anaerobic Blood Culture - Pending 08/22/22 08/22/22 08/22/22 08:23 08:10 08:03 WBC RBC Hgb Hct MCV MCH MCHC RDW Std Deviation RDW Coeff of Baldo Plt Count MPV Immature Gran % (Auto) Neut % (Auto) Lymph % (Auto) [place] % (Auto) Eos % (Auto) Baso % (Auto) Neut # (Auto) Lymph # (Auto) [place] # (Auto) Eos # (Auto) Baso # (Auto) Immature Gran # (Auto) Sodium Potassium Chloride Carbon Dioxide Anion Gap BUN Creatinine Est Cr Clr Drug Dosing Est GFR ( Amer) Est GFR (Non-Af Amer) BUN/Creatinine Ratio Glucose Lactate 1.0 Calcium Magnesium Total Bilirubin Direct Bilirubin AST ALT Alkaline Phosphatase Troponin I High Sens Total Protein Albumin Procalcitonin Urine Color Yellow Urine Appearance Clear Urine pH 7.0 Ur Specific [place] 1.014 Urine Protein Negative Urine Glucose (UA) Negative Urine Ketones Negative Urine Blood Negative Urine Nitrite Negative Urine Bilirubin Negative Urine Urobilinogen Negative Ur Leukocyte Esterase Negative SARS-CoV-2, RNA, NAAT NEGATIVE 08/22/22 08/22/22 08/22/22 07:15 07:15 07:15 WBC 10.94 H RBC 4.72 Hgb 12.7 L Hct 40.8 L MCV 86.4 MCH 26.9 MCHC 31.1 L RDW Std Deviation 50.6 H RDW Coeff of Baldo 16.3 H Plt Count 111 L MPV 11.2 Immature Gran % (Auto) 0.8 Neut % (Auto) 75.2 Lymph % (Auto) 17.1 [place] % (Auto) 5.7 Eos % (Auto) 1.1 Baso % (Auto) 0.1 Neut # (Auto) 8.23 H Lymph # (Auto) 1.87 [place] # (Auto) 0.62 H Eos # (Auto) 0.12 Baso # (Auto) 0.01 Immature Gran # (Auto) 0.09 Sodium 142 Potassium 4.3 Chloride 102 Carbon Dioxide 35 H Anion Gap 5 BUN 36 H Creatinine 1.17 Est Cr Clr Drug Dosing 88.2 Est GFR ( Amer) 72.8 Est GFR (Non-Af Amer) 62.8 BUN/Creatinine Ratio 30.8 H Glucose 93 Lactate Calcium 9.3 Magnesium 2.3 Total Bilirubin 1.8 H Direct Bilirubin 0.4 H AST 37 ALT 62 H Alkaline Phosphatase 72 Troponin I High Sens 21.2 H Total Protein 6.5 Albumin 3.6 Procalcitonin < 0.05 Urine Color Urine Appearance Urine pH Ur Specific [place] Urine Protein Urine Glucose (UA) Urine Ketones Urine Blood Urine Nitrite Urine Bilirubin Urine Urobilinogen Ur Leukocyte Esterase SARS-CoV-2, RNA, NAAT Diagnostic Findings Chest X-Ray 08/22/22 07:22 XR chest 1V portable HISTORY: 72 years-old Male Sepsis acute sepsis COMPARISON: 07/29/2022 TECHNIQUE: AP view of the chest FINDINGS: Cardiac silhouette is enlarged. Left subclavian pacer. Pulmonary vascular congestion. No pneumothorax. Probable trace pleural effusions. Mild bibasilar densities favoring atelectasis. Degenerative changes of the shoulders and spine. IMPRESSION: Cardiomegaly with pulmonary vascular congestion. ACT 112: Negative or not required by law. The above report was generated using voice recognition software. It may contain grammatical, syntax or spelling errors. Electronically signed by: Bartolome Menchaca M.D. 08/22/2022 8:02 AM Toe X-Ray 08/22/22 07:22 RIGHT FIRST TOE 3 VIEWS CLINICAL HISTORY: Sepsis. First toe infection. FINDINGS: 3 views of the right first toe are correlated with radiographs of the right foot dated 11/01/2019. The skeletal structures are osteopenic. No acute fracture is seen. There is no bony erosion or periostitis. Osteoarthritic change is noted at the first metatarsophalangeal and interphalangeal joints. Soft tissue edema is present in the forefoot and first toe. No soft tissue gas is seen. There is no radiodense foreign body. Advanced atherosclerotic calcification is noted in regional arteries. There is a plantar heel spur seen on the lateral view. IMPRESSION: 1. Soft tissue swelling with no acute bony abnormality identified. 2. Osteopenia and arthritic change as above. Electronically signed by: Anupam Gonzalez M.D. 08/22/2022 8:00 AM Code Status & VTE Plan Code Status Full code - discussed with the patient at bedside Supervising Physician Co-Signing Physician Notes I have seen and examined the patient and have discussed the case with the provider above. I agree with the assessment and plan as stated with the following exceptions. 72 yo M presents with worsening pain in his legs from the knees down along with seepage from some superficial wounds in both of his legs. There is erythema present LLE>RLE that is chronic per his report. He has a superficial wound that is not actively draining on his right great toe on the dorsal side over the interphalangeal joint. The toe itself is red and swollen but the patient reports he cannot feel anything because of neuropathy. He denies fevers, chills and is not septic. There is no evidence of a spreading cellulitis on the right, but the LLE does have some bright red erythema along the dorsal forefoot area which does not include the ankle or the toes, as well as some additional bright red erythema along the anterior LLE not including the knees. He has significant onychomycosis of all nails including toenails, and there is no interdigital fungal infections present. After arriving in the ER, a CXR reveals vascular congestion and he reports gaining weight, although cannot say how much exactly. He reports ambulating without shortness of breath. He has been on high dose steroids, currently on a taper with a dose of 50mg daily, then 40mg 08/25, etc. He denies any more headaches or right sided jaw pain. On physical exam he appears fatigued but is alert and cooperative and oriented. He tries to give a history but is incorrect with many of his medications. It is unclear how much of his report is accurate as no other family or staff are present at this time. His eyes appear slightly irritated but not injected. He has them half closed for the most part which is typical for him with his history of using vancomycin eye drops for the last couple of years. 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 Lungs are clear to auscultation throughout with decreased breath sounds at the bases bilaterally. Abdomen is benign but protuberant. Lower extremities with 1+ pitting edema bilaterally. Workup includes a CBC with WBC 10.9,PLT 111, 1. Transient Hypoxia with hypervolemia in setting of high dose steroid use since last month-possible right heart failure exacerbation. 2. Gout flare of right toe 3. Possible LLE cellulitis 4. Ongoing high dose steroid use for treatment of acute GCA (Jul 2022) 5. Thrombocytopenia 6. Persistent atrial fibrillation on apixaban 7. Onychomycosis 8. DMII with morbid obesity 9. Hyperbilirubinemia with a history of chronically elevated total bilirubin (1.8) Will admit patient to medicine team on telemetry for concerns ofacute right heart failure exacerbation. He has been taking high dose steroids since Jul 2022 for GCA which may contribute to fluid retention and immunosuppression, and is reporting weight gain and swelling of his legs with seepage through the skin. He has a history of hypertensive heart disease, pulmonary hypertension, chronic right sided heart failure, COPD and atrial fibrillation. He is on oxygen supplementation at night, however, dropped to 76% in the ER today. He was able to be weaned off oxygen at rest shortly after this. He is up in weight wtih baseline in Jun 2022 around 143 kg. During his last brief admission to the hospital (07/29-08/01) he was 151kg and is now 159kg. He is very winded with minimal movement around the bed today during exam. Agree with intravenous diuresis for heart failure exacerbation, and will order repeat echo at this time, given the last were not optimal. Regarding his right toe, he appears to have agout flare. He is chronically on allopurinol and is now taking high dose steroids. He admits to no pain or discomfort because of neuropathy. For now, with hissevere onychomycosis of nails, diabetes, immunosuppression on steroids and history of LE cellulitis in the past, I would opt to treat the nails with terbinafine PO. The steroids shou ld continue to improve the joint inflammation and although colchicine could be considered, there is a drug-drug interaction between this and antifungals. May consider treating with this if the joint gets worse. Agree with empiric antibiotics for possible developing LLE cellulitis. Hopefully the diuretic therapy will also improve the discomfort and redness in the legs. DO Pete (1) Gout Chronicity: unspecified Gout etiology: unspecified cause Gout site: unspecified site Qualified Code(s): M10.9 - Gout, unspecified (2) Diabetes mellitus, type 2 Diabetes mellitus complication detail: without coma Diabetes mellitus complication status: with hypoglycemia Diabetes mellitus intermediate designer insulin use: with [facility] use Qualified Code(s): E11.649 - Type 2 diabetes mellitus with hypoglycemia without coma; Z79.4 - FPC (current) use of insulin (3) Hyperlipidemia Hyperlipidemia type: unspecified Qualified Code(s): E78.5 - Hyperlipidemia, unspecified
[2022-08-22] MEDS ORDERED: FUROSEMIDE 40 MG/4 ML VIAL IV ONE ×2 (10:45→11:11)
--- NOTE | 2022-08-22 10:51 | Communication Note ---
Date of Service: August 22, 2022 ATTENDING ADDENDUM: 72 yo M presents with worsening pain in his legs from the knees down along with seepage from some superficial wounds in both of his legs. There is erythema present LLE>RLE that is chronic per his report. He has a superficial wound that is not actively draining on his right great toe on the dorsal side over the interphalangeal joint. The toe itself is red and swollen but the patient reports he cannot feel anything because of neuropathy. He denies fevers, chills and is not septic. There is no evidence of a spreading cellulitis on the right, but the LLE does have some bright red erythema along the dorsal forefoot area which does not include the ankle or the toes, as well as some additional bright red erythema along the anterior LLE not including the knees. He has significant onychomycosis of all nails including toenails, and there is no interdigital fungal infections present. After arriving in the ER, a CXR reveals vascular congestion and he reports gaining weight, although cannot say how much exactly. He reports ambulating without shortness of breath. He has been on high dose steroids, currently on a taper with a dose of 50mg daily, then 40mg 08/25, etc. He denies any more headaches or right sided jaw pain. On physical exam he appears fatigued but is alert and cooperative and oriented. He tries to give a history but is incorrect with many of his medications. It is unclear how much of his report is accurate as no other family or staff are present at this time. His eyes appear slightly irritated but not injected. He has them half closed for the most part which is typical for him with his history of using vancomycin eye drops for the last couple of years. (He reports recently seeing the solar manager who took him off these eye drops, he is only using artificial tears at this time.) Cardiac exam reveals very distant heart sounds, and cannot picker and packer the rhythm clearly or discern if any murmurs are present. Lungs are clear to auscultation throughout with decreased breath sounds at the bases bilaterally. Abdomen is benign but protuberant. Lower extremities with 1+ pitting edema bilaterally. Workup includes a CBC with WBC 10.9,PLT 111, 1. Transient Hypoxia with hypervolemia in setting of high dose steroid use since last month-possible right heart failure exacerbation. 2. Gout flare of right toe 3. Possible LLE cellulitis 4. Ongoing high dose steroid use for treatment of acute GCA (Jul 2022) 5. Thrombocytopenia 6. Persistent atrial fibrillation on apixaban 7. Onychomycosis 8. DMII with morbid obesity 9. Hyperbilirubinemia with a history of chronically elevated total bilirubin (1.8) Will admit patient to medicine team on telemetry for concerns of acute right heart failure exacerbation. He has been taking high dose steroids since Jul 2022 for GCA which may contribute to fluid retention and immunosuppression, and is reporting weight gain and swelling of his legs with seepage through the skin. He has a history of hypertensive heart disease, pulmonary hypertension, chronic right sided heart failure, COPD and atrial fibrillation. He is on oxygen supplementation at night, however, dropped to 76% in the ER today. He was able to be weaned off oxygen at rest shortly after this. He is up in weight wtih baseline in Jun 2022 around 143 kg. During his last brief admission to the hospital (07/29-08/01) he was 151kg and is now 159kg. He is very winded with minimal movement around the bed today during exam. Agree with intravenous diuresis for heart failure exacerbation, and will order repeat echo at this time, given the last were not optimal. Regarding his right toe, he appears to have a gout flare. He is chronically on allopurinol and is now taking high dose steroids. He admits to no pain or discomfort because of neuropathy. For now, with his severe onychomycosis of nails, diabetes, immunosuppression on steroids and history of LE cellulitis in the past, I would opt to treat the nails with terbinafine PO. The steroids should continue to improve the joint inflammation and although colchicine could be considered, there is a drug-drug interaction between this and antifungals. May consider treating with this if the joint gets worse. Agree with empiric ant ibiotics for possible developing LLE cellulitis. DO Pete
--- NOTE | 2022-08-22 11:08 | Electrocardiogram Report ---
Test Reason : Blood Pressure : / mmHG Vent. Rate : 081 BPM Atrial Rate : 129 BPM P-R Int : 000 ms QRS Dur : 156 ms QT Int : 402 ms P-R-T Axes : 000 -67 082 degrees QTc Int : 466 ms Atrial fibrillation with occasional ventricular-paced complexes and with premature ventricular or feliberto rrantly conducted complexes Right bundle branch block Left anterior fascicular block Poor R wave progression, consider anterior HI vs. lead placement vs. LVH Abnormal ECG When compared with ECG of 20-AUG-2022 17:28, No significant change was found Confirmed by Te Back ([id number]) on 08/22/2022 11:07:58 AM Referred By: ED Confirmed By:Te Back
[2022-08-22] MEDS ORDERED: GLUCOSE 40% GEL 15 GM TUBE PO PRN (11:18)
[2022-08-22] MEDS ORDERED: CARBOHYDRATES FOR HYPOGLYCEMIA PO PRN (11:18)
[2022-08-22] MEDS ORDERED: ONDANSETRON INJ 2 MG/ML 2 ML VIAL IV PRN (11:18)
[2022-08-22] MEDS ORDERED: DEXTROSE 50% 50 ML SYRINGE IV PRN (11:18)
[2022-08-22] MEDS ORDERED: GLUCOSE 10 TAB/TUBE PO PRN (11:18)
[2022-08-22] MEDS ORDERED: GLUCAGON FOR INJ 1 MG VIAL SQ PRN (11:18)
[2022-08-22] MEDS ORDERED: ALBUTEROL HFA 8 GM INHALER INH PRN (11:56)
[2022-08-22] MEDS ORDERED: NAPHAZOLIN/PHENIRAMIN OPH SOLN 75 DROPS/5 ML BTL OP PRN (11:56)
[2022-08-22] MEDS ORDERED: LORATADINE 10 MG TAB PO PRN (11:56)
[2022-08-22] MEDS ORDERED: PHARMACY GLYCEMIC MGMT CONSULT PRN (11:58)
[2022-08-22] MEDS ORDERED: NovoLIN-R INSULIN PER UNIT CHARGE SQ SCH (12:00)
[2022-08-22] MEDS: INSULIN ASPART PER UNIT SC SCH ×2 (12:48→17:13)
[2022-08-22] MEDS ORDERED: VANCOMYCIN OPB SCH (13:00)
--- NOTE | 2022-08-22 13:51 | Pharmacy Report ---
Pharmacy Glycemic Short Note 2 - Date of Service August 22, 2022 - Glycemic Short BSG Results (Last 24 hours): 08/22/22 08/22/22 07:15 11:29 Glucose 93 POC Glucose 90 OUTPATIENT ANTIDIABETIC REGIMEN: * Lantus 105 units qAM + 65 units qPM * Regular insulin 14 units TIDM * HbA1C = 11.6 % (06/16/22) ASSESSMENT: * Mr Andujar is a 72 y/o M admitted with CHF/cellulitis. * BSGs today are 93/90 mg/dL. Typically when patient is admitted, BSGs are elevated. * Patient continues on high-dose steroids. Currently on 50 mg/day. * Will hold off on basal insulin at this time. Patient typically requires around 90-100 units/day when on steroids and it is recorded that patient took 105 units of Lantus this AM. Based upon BSGs at this time, will hold off on any more basal. * For tomorrow, will profile NPH 40 units daily for prednisone 50 mg - patient tolerated this well last admission. * Due to lower BSGs, will use looser Novolog. PLAN FOR INPATIENT GLYCEMIC CONTROL: * Hold outpatient oral diabetes medications * Basal insulin * Lantus - hold and re-evaluate 08/23/22 * NPH 40 units SQ daily with prednisone 50 mg * Bolus insulin * NovoLog per scale ACHS or Q6hrs while NPO * Goal Range: Low 110 mg/dL - High 140 mg/dL * Correction Factor: 15 mg/dL/unit * Nutritional / Prandial insulin per carb ratio of 1 unit per 5 grams CHO consumed
[2022-08-22] MEDS: ARTIFICIAL TEARS OP SCH ×5 (14:21→23:42)
[2022-08-22] MEDS: terbinafine HCL 250 MG TAB PO SCH (14:22)
[2022-08-22] MEDS: GABAPENTIN 300 MG CAP PO SCH ×3 (14:22→19:48)
[2022-08-22] MEDS: SENNA 8.6 MG TAB PO SCH (19:47)
[2022-08-22] MEDS: POTASSIUM CHLORIDE CRTAB 20 MEQ TABCR PO SCH (19:47)
[2022-08-22] MEDS: APIXABAN 5 MG TABLET PO SCH (19:47)
[2022-08-22] MEDS: METOPROLOL SUCC 50MG EXT REL TAB PO SCH (19:48)
[2022-08-22] MEDS: NYSTATIN POWDER 15GM BTL EXT SCH (19:49)
[2022-08-22] MEDS: ERYTHROMYCIN OP OINT 5 MG/GM 3.5 GM TUBE OPB SCH (19:50)
[2022-08-22] MEDS ORDERED: LANTUS PER UNIT CHARGE SQ SCH (21:00)
[2022-08-22] MEDS ORDERED: XOPENEX/ATROVENT 1.25mg/0.5MG NEB COMBO NEB STA (22:04)
[2022-08-22] MEDS ORDERED: LEVALBUTEROL 1.25MG/0.5ML NEB INH STA (22:10)
[2022-08-22] MEDS ORDERED: IPRATROPIUM BROMIDE NEB SOLN 0.02% 2.5 ML VIAL INH STA (22:10)
[2022-08-22] MEDS: ACETAMINOPHEN 325 MG TAB PO PRN (23:42)
[2022-08-22 23:57] LABS: Base Excess ABG 6.6 mEq/L (-9-1.8); HCO3 ABG 31 mmol/L (19-24); Oxygen Saturation ABG 94.8 % (90-95); PCO2 ABG 44 mmHg (35-46); PO2 ABG 86 mmHg (80-95); pH ABG 7.46 (7.35-7.45)
[2022-08-23 00:18] LABS: Allen Test Pos (Pos)
[2022-08-23] MEDS: INSULIN ASPART PER UNIT SC SCH ×7 (00:56→21:08)
[2022-08-23] MEDS: ARTIFICIAL TEARS OP SCH ×12 (00:56→22:31)
[2022-08-23] MEDS: LEVOTHYROXINE SODIUM 125 MCG TABLET PO SCH (04:50)
[2022-08-23] MEDS: APIXABAN 5 MG TABLET PO SCH ×2 (07:54→21:10)
[2022-08-23] MEDS: ASPIRIN 81 MG ECTAB PO SCH (07:54)
[2022-08-23] MEDS: ATORVASTATIN 10 MG TAB PO SCH (07:54)
[2022-08-23] MEDS: allopurinoL 300 MG TAB PO SCH (07:54)
[2022-08-23] MEDS: buPROPion XL 150 MG TABCR PO SCH (07:55)
[2022-08-23] MEDS: DULoxetine HCL 60 MG CAP PO SCH (07:55)
[2022-08-23] MEDS: MAGNESIUM OXIDE 400 MG TAB PO SCH (07:55)
[2022-08-23] MEDS: GABAPENTIN 300 MG CAP PO SCH ×4 (07:55→21:08)
[2022-08-23] MEDS: CHOLECALCIFEROL 1,000 UNITS 25 MCG TAB PO SCH (07:55)
[2022-08-23] MEDS: LIDOCAINE 5% 1 PATCH TD SCH (07:55)
[2022-08-23] MEDS: METOPROLOL SUCC 50MG EXT REL TAB PO SCH ×2 (07:55→21:10)
[2022-08-23] MEDS: MULTIVITAMIN TAB PO SCH (07:56)
[2022-08-23] MEDS: POTASSIUM CHLORIDE CRTAB 20 MEQ TABCR PO SCH ×2 (07:56→21:11)
[2022-08-23] MEDS: SENNA 8.6 MG TAB PO SCH ×2 (07:56→21:09)
[2022-08-23] MEDS: terbinafine HCL 250 MG TAB PO SCH (07:56)
[2022-08-23] MEDS: predniSONE 50 MG TAB PO SCH (07:56)
[2022-08-23] MEDS: PANTOprazole 40 MG TAB PO SCH (07:56)
[2022-08-23] MEDS ORDERED: cefTRIAXone SODIUM 2,000 MG in DEXTROSE 5% 50 ML IV SCH (08:00)
[2022-08-23 08:31] LABS: Albumin Level 3.3 gm/dl (3.4-5.0); BUN Creatinine Ratio 29.1 (10-20); Bilirubin Direct 0.3 mg/dl (0-0.2); Bilirubin,Total 1.8 mg/dl (0.2-1.0); Calcium 9.4 mg/dl (8.5-10.1); Est GFR (African American) 72.8 ml/min; Est GFR (Non-African American) 62.8 ml/min; Hematocrit (blood only) 41.2 % (42.0-52.0); Hemoglobin 12.7 g/dl (14.0-18.0); Mean Corpuscular Hemoglobin 26.6 pg (25.0-34.0); Mean Corpuscular Hgb Conc 30.8 g/dL (32.0-36.0); Mean Corpuscular Volume 86.4 fL (80.0-100.0); Mean Platelet Volume 10.8 fL (9.4-12.4); Platelet Count 106 K/uL (130-400); Potassium 4.6 mmol/L (3.5-5.1); RDW Coefficient of Variation 16.4 % (11.5-14.5); RDW Standard Deviation 51.8 fL (36.4-46.3); Red Blood Count 4.77 M/uL (4.70-6.10); Total Protein 6.4 gm/dl (6.0-8.3); White Blood Count 8.72 K/ul (4.8-10.8)
[2022-08-23] MEDS ORDERED: LANTUS PER UNIT CHARGE SQ SCH (09:00)
[2022-08-23] MEDS: INSULIN HUMAN NPH SC SCH (09:16)
[2022-08-23] MEDS: NYSTATIN POWDER 15GM BTL EXT SCH ×2 (09:18→21:09)
[2022-08-23] MEDS: ERYTHROMYCIN OP OINT 5 MG/GM 3.5 GM TUBE OPB SCH ×2 (09:18→21:07)
--- NOTE | 2022-08-23 09:27 | Hospitalist Progress Note ---
Date of Service August 23, 2022 Assessment & Plan (1) Acute heart failure with preserved ejection fraction: Plan: Poor acoustic windows on repeat echo, unable to visualize right heart well. Clinically, he has gained at least 20 lbs from his baseline in Jun 2022. Negative 4.4L net out overnight. Legs feels improved per patient. Cont diuresis and appreciate cariology recommendations. (2) Hypoxia: Plan: 2/2 acute heart failure. Cont diuretics as above and wean supplemental oxygen as tolerated. (3) COPD, moderate: Plan: chronic, stable. No active wheezing at this time. (4) Cellulitis: Plan: Do not believe cellulitis is present. Erythema yesterday was consistent with his chronic erythroderma in the past. 1st MTP joint appears to be a gout flare and is improved. There is a RLE wound, but no significant infection present. Stopping abx at this time and continue diuretics to help with the ongoing LE edema. (5) Interstitial lung disease: (6) Diabetes mellitus, type 2: Plan: - Last A1C was 11.6 in 06/16/22 - Outpatient since last admission has required increased insulin secondary to high steroid dosing for temporal arteritis: Continue Lantus 105 U QAM and 65 QPM, TID uses 14 U Novolog with meals plus sliding scale (7) GCA (giant cell arteritis): Plan: Presented in Jul 2022 with symptoms. TA biopsy was negative. Cont course of steroids per rheumatology as there was clinical improvement. Continues prednisone, currently 50mg PO daily, decrease by 10mg per week, will start 40mg daily on 08/25. Likely contributing to weight gain. Patient denies any visual disturbances, headaches orjaw pain. (8) Paroxysmal atrial fibrillation: Plan: chronic, paced rhythm with afib underlying on telemetry, continues on apixaban, cont metoprolol and digoxin per home regimen. Rate is controlled. (9) Gout: Plan: Acute gout flare of 1st MTP, improved. Uncertain chronicity as patient has neuropathy and is not affected with pain or discomfort. He continues on prednisone taper for underlying GCA and chronic allopurinol. The joint is improved. No indication for additional agents to treat flare at this time. (10) Onychomycosis: Plan: severe onychomycosis of all nails. H/O cellulitis in this diabetic immunosuppressed patient. Opting to treat wtih oral terbinafine x 6-12 weeks. Cont daily terbinafine. LFTs are stable/improved today. (11) Wound of right leg: Plan: Stage II ulceration with some seepage likely 2/2 underlying LE edema in setting of weight gain and heart failure exacerbation. Doesn't appear to be acutely infected. Cont diuresis as above. Wound care nurse to evaluate further. DVT proph: apixaban Full code Dispo-from [facility], cont hospitalization for another few days or per cardiology and PT/OT. DO [facility] Admission and Anticipated Discharge Date Admission Date: August 22, 2022 Subjective 72 yo M presented with bilateral leg pain and seepage from his legs and toe wound. His 1st MTP joint on the right is less red today and there is no pain per patient His erythema present yesterday on the right lower leg and foot is resolved/dusky brown in color and not warm He denies fevers or chills and states his legs feel better but he is still seeping. There is a wound with granulation tissue on the RLE anteriorly. We discussed his significant weight gain in the past 1-2 months. Denies chest pain. -4.4L overnight with IV diuretics 99% on 4LPM nasal canula. Review of Systems Review of Systems: All systems were reviewed and negative except as indicated on subjective above. Physical Exam Physical Exam: CONSTITUTIONAL: morbid obesity, vitals as above, generally well-appearing, NAD EYES: normal conjunctivae, no scleral icterus, ENT: external ear and nose normal, MMM NECK: trachea midline RESPIRATORY: clear to auscultation bilaterally, no crackles, rales or wheezes, normal respiratory effort CARDIOVASCULAR: regular rate and rhythm, S1 and 2 heard without murmurs, gallops or rubs, no JVD, 2+ peripheral edema CHEST: inspection of chest was normal GASTROINTESTINAL: soft, nontender, ND, protuberant, no guarding MUSCULOSKELETAL: strength 5/5 throughout, head is normocephalic SKIN: warm and dry, Stage II ulcerative wound on RLE anteriorly-granulation tissue present, some seepage. NEUROLOGIC: CN 2-12 grossly intact, no sensory deficit, normal cognition, normal speech, no tremor PSYCHIATRIC: alert cooperative and oriented to person, place and time. Results & Data Results & Data ([facility]) Vital Signs (Past 12 Hours) Vital Signs Temp Pulse Pulse Pulse Resp BP Pulse Ox 08/23/22 07:00 36.5 C 91 H 20 135/77 99 08/23/22 03:44 36.8 C 89 16 136/80 95 08/22/22 22:54 90 08/22/22 23:05 36.6 C 69 16 101/67 95 08/22/22 22:41 99 H 16 94 08/22/22 22:00 36.5 C 113 H 19 121/77 97 08/22/22 21:55 36.4 C L 97 H 16 128/96 90 O2 Del Method O2 Flow Rate 08/23/22 07:00 Nasal Cannula 4 08/23/22 03:44 Nasal Cannula 4 08/22/22 22:54 08/22/22 23:05 Nasal Cannula 4 08/22/22 22:41 Nasal Cannula 4 08/22/22 22:00 Nasal Cannula 2 08/22/22 21:55 Nasal Cannula 2 Laboratory Results Short CBC 08/23/22 Range/Units 07:37 WBC 8.72 (4.8-10.8) K/ul Hgb 12.7 L (14.0-18.0) g/dl Hct 41.2 L (42.0-52.0) % Plt Count 106 L (130-400) K/uL BMP 08/23/22 07:37 Sodium 140 Potassium 4.6 Chloride 101 Carbon Dioxide 37 H BUN 34 H Creatinine 1.17 Glucose 116 H Calcium 9.4 Liver Function 08/23/22 Range/Units 07:37 Total Bilirubin 1.8 H (0.2-1.0) mg/dl Direct Bilirubin 0.3 H (0-0.2) mg/dl AST 32 (13-39) U/L ALT 52 (7-52) U/L Alkaline Phosphatase 83 (34-104) U/L Albumin 3.3 L (3.4-5.0) gm/dl Medications Administered Current Inpatient Medications Acetaminophen (Acetaminophen 325 Mg Tab) 650 mg PO Q4H PRN PRN Reason: Moderate Pain Stop: 09/21/22 11:17 Last Admin: 08/22/22 23:42 Dose: 650 mg Albuterol (Albuterol Hfa 8 Gm Inhaler) 2 puffs INH Q4 PRN PRN Reason: Shortness Of Breath Or Wheezing Stop: 09/21/22 11:55 Allopurinol (Allopurinol 300 Mg Tab) 300 mg PO DAILY OFE Stop: 09/22/22 08:59 Last Admin: 08/23/22 07:54 Dose: 300 mg Apixaban (Apixaban 5 Mg Tablet) 5 mg PO Q12 OFE Stop: 09/21/22 20:59 Last Admin: 08/23/22 07:54 Dose: 5 mg Artificial Tears (Artificial Tears) 1 drops OP Q2H OFE Stop: 09/21/22 13:29 Last Admin: 08/23/22 07:54 Dose: 1 drops Aspirin (Aspirin 81 Mg Ectab) 81 mg PO DAILY OFE Stop: 09/22/22 08:59 Last Admin: 08/23/22 07:54 Dose: 81 mg Atorvastatin Calcium (Atorvastatin 10 Mg Tab) 10 mg PO DAILY OFE Stop: 09/22/22 08:59 Last Admin: 08/23/22 07:54 Dose: 10 mg Bupropion HCl (Bupropion Xl 150 Mg Tabcr) 150 mg PO DAILY OFE Stop: 09/22/22 08:59 Last Admin: 08/23/22 07:55 Dose: 150 mg Dextrose (Dextrose 50% 50 Ml Syringe) 25 - 50 ml IV UD PRN; Protocol PRN Reason: Hypoglycemia Protocol Stop: 09/21/22 11:17 Last Admin: 08/22/22 21:45 Dose: 50 ml Digoxin (Digoxin 0.125 Mg Tab) 0.125 mg PO DAILY@1800 OFE Stop: 09/22/22 17:59 Duloxetine HCl (Duloxetine Hcl 60 Mg Cap) 60 mg PO DAILY OFE Stop: 09/22/22 08:59 Last Admin: 08/23/22 07:55 Dose: 60 mg Erythromycin (Erythromycin Op Oint 5 Mg/Gm 3.5 Gm Tube) 1 appln OPB BID OFE Stop: 09/01/22 20:59 Last Admin: 08/23/22 09:18 Dose: Not Given Gabapentin (Gabapentin 300 Mg Cap) 300 mg PO QID OFE Stop: 09/21/22 12:59 Last Admin: 08/23/22 07:55 Dose: 300 mg Glucagon (Glucagon For Inj 1 Mg Vial) 1 mg SQ UD PRN; Protocol PRN Reason: Hypoglycemia Protocol Stop: 09/21/22 11:17 Glucose (Glucose 40% Gel 15 Gm Tube) 15 - 30 gm PO UD PRN; Protocol PRN Reason: Hypoglycemia Protocol Stop: 09/21/22 11:17 Glucose (Glucose 10 Tab/Tube) 4 - 8 tab PO UD PRN; Protocol PRN Reason: Hypoglycemia Treatment Stop: 09/21/22 11:17 Ceftriaxone Sodium 2,000 mg/ (Dextrose) 70 mls @ 100 mls/hr IV Q24H ON LICENSE OF [facility]; Protocol Stop: 08/30/22 07:59 Last Admin: 08/23/22 09:14 Dose: 100 mls/hr Insulin Aspart (Insulin Aspart Per Unit) 0 units SC ACHS ON LICENSE OF [facility] Stop: 09/21/22 11:29 Last Admin: 08/23/22 09:15 Dose: 10 units Insulin Human NPH (Insulin Human Nph) 40 units SC DAILY ON LICENSE OF [facility] Stop: 09/22/22 08:59 Last Admin: 08/23/22 09:16 Dose: 40 units Levothyroxine Sodium (Levothyroxine Sodium 125 Mcg Tablet) 250 mcg PO DAILYBB ON LICENSE OF [facility] Stop: 09/22/22 06:29 Last Admin: 08/23/22 04:50 Dose: 250 mcg Lidocaine (Lidocaine 5% 1 Patch) 1 patch TD DAILY ON LICENSE OF [facility] Stop: 09/22/22 08:59 Last Admin: 08/23/22 07:55 Dose: 1 patch Loratadine (Loratadine 10 Mg Tab) 20 mg PO DAILY PRN PRN Reason: .allergies Stop: 09/21/22 11:55 Magnesium Oxide (Magnesium Oxide 400 Mg Tab) 400 mg PO DAILY ON LICENSE OF [facility] Stop: 09/22/22 08:59 Last Admin: 08/23/22 07:55 Dose: 400 mg Metoprolol Succinate (Metoprolol Succ 50mg Ext Rel Tab) 100 mg PO BID ON LICENSE OF [facility] Stop: 09/21/22 20:59 Last Admin: 08/23/22 07:55 Dose: 100 mg Miscellaneous (Carbohydrates For Hypoglycemia ) 15 - 30 gm PO UD PRN PRN Reason: Hypoglycemia Protocol Stop: 09/21/22 11:17 Last Admin: 08/22/22 21:18 Dose: 30 gm Miscellaneous (Remove Lidoderm Patch) 1 each N/A DAILY@2100 ON LICENSE OF [facility] Stop: 09/21/22 20:59 Last Admin: 08/22/22 19:49 Dose: 1 each Miscellaneous Information (Pharmacy Glycemic Mgmt Consult) 1 each N/A UD PRN; Protocol PRN Reason: Consult Stop: 09/21/22 11:57 Multivitamins (Multivitamin Tab) 1 tab PO QAM OFE Stop: 09/22/22 08:59 Last Admin: 08/23/22 07:56 Dose: 1 tab Naphazoline HCl/Pheniramine Maleate (Naphazolin/Pheniramin Oph Soln 75 Drops/5 Ml Btl) 2 drops OP Q6 PRN PRN Reason: IRRITATED EYES Stop: 09/21/22 11:55 Nystatin (Nystatin Powder 15gm Btl) 1 appln EXT BID OFE Stop: 09/21/22 20:59 Last Admin: 08/23/22 09:18 Dose: 1 appln Ondansetron HCl (Ondansetron Inj 2 Mg/Ml 2 Ml Vial) 4 mg IV Q4H PRN PRN Reason: Nausea And Vomiting Stop: 09/21/22 11:17 Pantoprazole Sodium (Pantoprazole 40 Mg Tab) 40 mg PO DAILY OFE Stop: 09/22/22 08:59 Last Admin: 08/23/22 07:56 Dose: 40 mg Potassium Chloride (Potassium Chloride Crtab 20 Meq Tabcr) 20 meq PO BID OFE Stop: 09/21/22 20:59 Last Admin: 08/23/22 07:56 Dose: 20 meq Prednisone (Prednisone 50 Mg Tab) 50 mg PO DAILY OFE Stop: 09/22/22 08:59 Last Admin: 08/23/22 07:56 Dose: 50 mg Sennosides (Senna 8.6 Mg Tab) 8.6 mg PO BID OFE Stop: 09/21/22 20:59 Last Admin: 08/23/22 07:56 Dose: 8.6 mg Terbinafine HCl (Terbinafine Hcl 250 Mg Tab) 250 mg PO DAILY ON LICENSE OF [facility] Stop: 11/13/22 09:01 Last Admin: 08/23/22 07:56 Dose: 250 mg Vitamin D (Cholecalciferol 1,000 Units 25 Mcg Tab) 2,000 units PO DAILY OFE Stop: 09/22/22 08:59 Last Admin: 08/23/22 07:55 Dose: 2,000 units (1) Gout Chronicity: acute Gout etiology: unspecified cause Gout site: toe Laterality: right Qualified Code(s): M10.9 - Gout, unspecified (2) Diabetes mellitus, type 2 Diabetes mellitus complication detail: without coma Diabetes mellitus complication status: with hypoglycemia Diabetes mellitus long chain beamer insulin use: with mcc use Qualified Code(s): E11.649 - Type 2 diabetes mellitus with hypoglycemia without coma; Z79.4 - termination clerk (current) use of insulin
--- NOTE | 2022-08-23 12:53 | Cardiology Consultation ---
Date of Consultation August 23, 2022 Assessment & Plan (1) Acute heart failure with preserved ejection fraction: (2) Chronic diastolic CHF (congestive heart failure): (3) Atrial fibrillation: Plan 72-year-old male with longstanding history of past paroxysmal now persistent atrial fibrillation, diastolic LV dysfunction with past diastolic and right heart failure. Patient presents with acute decompensated diastolic heart failure right greater than left manifesting as increased abdominal girth weight gain and lower extremity edema. Patient responding to IV diuretics, would continue. Renal function is remaining stable. Expect patient to require higher dose of oral diuretic on discharge We will follow patient History of Present Illness Reason for Consultation: Edema, right heart failure Requesting Physician: Dr. Freeman Attending Physician: Marina Freeman, DO History of Present Illness Patient is a complex 72-year-old male with underlying cardiac issues which include 1. Past paroxysmal persistent atrial fibrillation. Prior flutter ablation 2012 2. Tachybradycardia syndrome status post dual-chamber pacemaker insertion September 2016, [employer] Advisa DR HOLT A2 3. Past tachycardia mediated cardiomyopathy with return to normal LV function 4. Hypertensive heart disease with diastolic/right heart failure, on furosemide. 5. Interstitial lung disease/obstructive sleep apnea/Possible amiodarone toxicity per record 6. Morbid obesity Patient recently hospitalized with diastolic heart failure and treated for temporal arteritis with high-dose corticosteroid Patient presents now noting 5 to 10 pounds or greater weight gain increasing abdominal girth and weeping edema both lower extremities. He denies fevers or chills. He notes no chest pains, tachypalpitations, syncope or near syncope. Improved clinically since admission with IV diuretics on examination this morning. Feels more comfortable left leg edema and abdominal distention with greater than 4 L diuresis overnight Rhythm on telemetry atrial fibrillation with controlled ventricular sponsor rate, intermittent ventricular paced Echocardiogram on 08/22/2022 unchanged from prior studies and echocardiographic images EF 50% Allergies Allergy/AdvReac Type Severity Reaction Status Date / Time No Known Allergies Allergy Verified 06/15/22 15:07 Home Medications Medication Instructions Recorded Confirmed Type acetaminophen 325 mg tablet 650 mg PO Q4 PRN Fever Or Pain 06/15/22 08/22/22 History (Tylenol) albuterol sulfate 90 mcg/actuation 2 puff inhalation Q4 PRN Shortness 06/15/22 08/22/22 History aerosol inhaler Of Breath Or Wheezing allopurinol 300 mg tablet 300 mg PO DAILY 06/15/22 08/22/22 History apixaban 5 mg tablet 5 mg PO Q12 06/15/22 08/22/22 History aspirin 81 mg tablet,delayed 81 mg PO DAILY 06/15/22 08/22/22 History release atorvastatin 10 mg tablet 10 mg PO DAILY 06/15/22 08/22/22 History bupropion HCl 150 mg 24 hr tablet, 150 mg PO DAILY 06/15/22 08/22/22 History extended release cholecalciferol (vitamin D3) 25 50 mcg PO DAILY 06/15/22 08/22/22 History mcg (1,000 unit) tablet (Vitamin D3) digoxin 125 mcg (0.125 mg) tablet 125 mcg PO DAILY 06/15/22 08/22/22 History duloxetine 60 mg capsule,delayed 60 mg PO DAILY 06/15/22 08/22/22 History release epinephrine 0.3 mg/0.3 mL 0.3 mg IM DIRECTED PRN Allergic 06/15/22 08/22/22 History injection, auto-injector Reaction erythromycin 5 mg/gram (0.5 %) eye 1 applic OPB DIRECTED 06/15/22 08/22/22 History ointment gabapentin 300 mg capsule 300 mg PO QID 06/15/22 08/22/22 History levothyroxine 125 mcg tablet 250 mcg PO DAILY 06/15/22 08/22/22 History lidocaine 5 % topical patch 1 patch topical DAILY 06/15/22 08/22/22 History loratadine 10 mg tablet 20 mg PO DAILY PRN .allergies 06/15/22 08/22/22 History magnesium oxide 420 mg tablet 420 mg PO DAILY 06/15/22 08/22/22 History multivitamin 1 tab PO DAILY 06/15/22 08/22/22 History naphazoline 0.025 %-pheniramine 2 drp ophthalmic (eye) Q6 PRN .. 06/15/22 08/22/22 History 0.3 % eye drops (Naphcon-A) nitroglycerin 0.4 mg sublingual 0.4 mg sublingual DIRECTED PRN 06/15/22 08/22/22 History tablet (Nitrostat) Chest Pain nystatin 100,000 unit/gram topical 1 applic topical BID 06/15/22 08/22/22 History powder omeprazole 20 mg capsule,delayed 20 mg PO DAILY 06/15/22 08/22/22 History release polyvinyl alcohol-povidone (PF) 1 drp OPB DIRECTED 06/15/22 08/22/22 History 1.4 %-0.6 % eye drops in a dropperette (Refresh Classic (PF)) sennosides 8.6 mg tablet (senna) 8.6 mg PO BID 06/15/22 08/22/22 History metoprolol succinate 50 mg 100 mg PO BID #60 tabs 06/23/22 08/22/22 Rx tablet,extended release 24 hr insulin glargine 100 unit/mL 65 unit subcut PM 07/29/22 08/22/22 History subcutaneous solution insulin glargine 100 unit/mL 105 unit subcut QAM 07/29/22 08/22/22 History subcutaneous solution insulin regular human 100 unit/mL 1 sliding scale dose subcut 07/29/22 08/22/22 History (3 mL) subcutaneous pen (Novolin R USEASDIRECTD FlexPen) furosemide 40 mg tablet 40 mg PO BID #30 tabs 08/01/22 08/22/22 Rx insulin regular human 100 unit/mL 14 unit (0.14 mL) subcut TIDM #10 08/01/22 08/22/22 Rx injection solution (Novolin R mL Regular U-100 Insulin) potassium chloride 20 mEq 20 meq PO BID #60 tabs 08/01/22 08/22/22 Rx tablet,extended release(part/cryst) prednisone 50 mg tablet 50 mg PO DAILY 08/22/22 08/22/22 History Patient History Medical History Arthritis Atrial flutter Bifascicular block CAD (coronary artery disease) Cardiac pacemaker in situ Cardiomyopathy Chronic anticoagulation Chronic diastolic CHF (congestive heart failure) Chronic venous insufficiency CKD (chronic kidney disease) stage 3, GFR 30-59 ml/min Claustrophobia Closed fracture of thyroid cartilage COPD, moderate COVID-19 Depression Diabetes mellitus, type 2 insulin pump Entropion of left lower eyelid Fatty liver Gout Hyperlipidemia Hypertension Hypothyroidism Iatrogenic pulmonary embolism Interstitial lung disease Morbid obesity MRSA infection Nephrolithiasis Nocturnal hypoxemia SALAS (obstructive sleep apnea) Osteoarthritis Paroxysmal atrial fibrillation Prolonged QT interval Pulmonary embolism B/L- 5+ years ago Sarcoidosis possible- evaluated by pulmonary; felt no active sarcoidosis and would not merit steroid therapy given weight/diabetic state. Sleep apnea CPAP Solitary pulmonary nodule Tachy-sherry syndrome Tachycardia induced cardiomyopathy "prior EF of 25% while in aflutter, subsequently normal in NSR" Surgical History H/O cardiac radiofrequency ablation H/O prior ablation treatment History of arthroscopic knee surgery History of bronchoscopy History of cataract surgery local anesthesia only per pt History of cholecystectomy History of extraction of renal calculus History of lung surgery thoracoscopy, right VATS, wedge resection History of umbilical hernia repair Hx of carpal tunnel repair Pacemaker Implanted 02/2017 secondary to Sinus node dysfunction/tachy sherry syndrome/3rd degree AVB [employer] Pacer check 12/24/17 Status post incision and drainage Family History Mother Cancer Social History Smoking Status: Never smoker Second Hand Exposure: No; Hx Alcohol Use: No Hx Substance Use: No Preferred Language: Thai Communication Ability: Effective Visual Impairment: Limited Hearing Ability: Normal Personal Lines Insurance Agent Required: No Beliefs That Will Affect Care: None marital status: Single Current Living Situation: Residential Current Living Situation Comment: [facility] current occupational status: retired How many Children do You have: 1 How many Children do You have Comment: children are not involved with care much per pt Feels Safe at Home: Yes Safety Concerns: Feels Safe At This Time Diet Comment: FLUID RESTRICTION during the past year weight has: other Assistive Devices: Oxygen - Continuous and Walker Review of Systems Review of Systems: All systems reviewed & are unremarkable except as noted in HPI & below Physical Exam Constitutional: + morbidly obese Eyes: PERRL, conjunctivae normal, anicteric sclerae Neck: + thick neck Respiratory: normal respiratory effort, lungs clear to auscultation Cardiovascular: Rate/Rhythm: + irregularly irregular Vessels: no JVD Extremities: + edema (2-3+ lower extremity edema with open wound) Gastrointestinal (Abdomen): Large panniculus with moderate distention, increased giirth Results & Data ([facility]) Vital Signs (Past 12 Hours) Vital Signs Temp Pulse Pulse Resp BP Pulse Ox O2 Del Method 08/23/22 08:00 Nasal Cannula 08/23/22 11:31 36.4 C L 87 20 127/71 96 Nasal Cannula 08/23/22 08:00 62 08/23/22 07:00 36.5 C 91 H 20 135/77 99 Nasal Cannula 08/23/22 03:44 36.8 C 89 16 136/80 95 Nasal Cannula O2 Flow Rate 08/23/22 08:00 4 08/23/22 11:31 4 08/23/22 08:00 08/23/22 07:00 4 08/23/22 03:44 4 Laboratory Results Laboratory Results - last 24 hr 08/22/22 08/22/22 08/22/22 14:24 16:33 21:02 WBC RBC Hgb Hct MCV MCH MCHC RDW Std Deviation RDW Coeff of Baldo Plt Count MPV ESR ABG pH ABG pCO2 ABG pO2 ABG HCO3 ABG O2 Saturation ABG Base Excess Sam Test Oxygen Given Sodium Potassium Chloride Carbon Dioxide Anion Gap BUN Creatinine Est Cr Clr Drug Dosing Est GFR ( Amer) Est GFR (Non-Af Amer) BUN/Creatinine Ratio Glucose POC Glucose 73 47 L* Calcium Total Bilirubin Direct Bilirubin AST ALT Alkaline Phosphatase Ammonia C-Reactive Protein Total Protein Albumin Nasal Screen MRSA (PCR) Negative Digoxin 08/22/22 08/22/22 08/22/22 21:05 21:12 21:15 WBC RBC Hgb Hct MCV MCH MCHC RDW Std Deviation RDW Coeff of Baldo Plt Count MPV ESR ABG pH ABG pCO2 ABG pO2 ABG HCO3 ABG O2 Saturation ABG Base Excess Sam Test Oxygen Given Sodium Potassium Chloride Carbon Dioxide Anion Gap BUN Creatinine Est Cr Clr Drug Dosing Est GFR ( Amer) Est GFR (Non-Af Amer) BUN/Creatinine Ratio Glucose POC Glucose 87 47 L* 52 L* Calcium Total Bilirubin Direct Bilirubin AST ALT Alkaline Phosphatase Ammonia C-Reactive Protein Total Protein Albumin Nasal Screen MRSA (PCR) Digoxin 08/22/22 08/22/22 08/22/22 21:31 21:35 22:00 WBC RBC Hgb Hct MCV MCH MCHC RDW Std Deviation RDW Coeff of Baldo Plt Count MPV ESR ABG pH ABG pCO2 ABG pO2 ABG HCO3 ABG O2 Saturation ABG Base Excess Sam Test Oxygen Given Sodium Potassium Chloride Carbon Dioxide Anion Gap BUN Creatinine Est Cr Clr Drug Dosing Est GFR ( Amer) Est GFR (Non-Af Amer) BUN/Creatinine Ratio Glucose POC Glucose 49 L* 52 L* 114 H Calcium Total Bilirubin Direct Bilirubin AST ALT Alkaline Phosphatase Ammonia C-Reactive Protein Total Protein Albumin Nasal Screen MRSA (PCR) Digoxin 08/22/22 08/22/22 08/22/22 23:40 23:40 23:46 WBC RBC Hgb Hct MCV MCH MCHC RDW Std Deviation RDW Coeff of Baldo Plt Count MPV ESR ABG pH 7.46 H ABG pCO2 44 ABG pO2 86 ABG HCO3 31 H ABG O2 Saturation 94.8 ABG Base Excess 6.6 H Sam Test Pos Oxygen Given 2 Sodium Potassium Chloride Carbon Dioxide Anion Gap BUN Creatinine Est Cr Clr Drug Dosing Est GFR ( Amer) Est GFR (Non-Af Amer) BUN/Creatinine Ratio Glucose POC Glucose Calcium Total Bilirubin Direct Bilirubin AST ALT Alkaline Phosphatase Ammonia 26.0 C-Reactive Protein Total Protein Albumin Nasal Screen MRSA (PCR) Digoxin 0.7 L 08/23/22 08/23/22 08/23/22 00:17 03:29 07:37 WBC 8.72 RBC 4.77 Hgb 12.7 L Hct 41.2 L MCV 86.4 MCH 26.6 MCHC 30.8 L RDW Std Deviation 51.8 H RDW Coeff of Baldo 16.4 H Plt Count 106 L MPV 10.8 ESR ABG pH ABG pCO2 ABG pO2 ABG HCO3 ABG O2 Saturation ABG Base Excess Sam Test Oxygen Given Sodium Potassium Chloride Carbon Dioxide Anion Gap BUN Creatinine Est Cr Clr Drug Dosing Est GFR ( Amer) Est GFR (Non-Af Amer) BUN/Creatinine Ratio Glucose POC Glucose 89 124 H Calcium Total Bilirubin Direct Bilirubin AST ALT Alkaline Phosphatase Ammonia C-Reactive Protein Total Protein Albumin Nasal Screen MRSA (PCR) Digoxin 08/23/22 08/23/22 08/23/22 07:37 07:37 07:38 WBC RBC Hgb Hct MCV MCH MCHC RDW Std Deviation RDW Coeff of Baldo Plt Count MPV ESR 47 H ABG pH ABG pCO2 ABG pO2 ABG HCO3 ABG O2 Saturation ABG Base Excess Sam Test Oxygen Given Sodium 140 Potassium 4.6 Chloride 101 Carbon Dioxide 37 H Anion Gap 2 L BUN 34 H Creatinine 1.17 Est Cr Clr Drug Dosing 86.0 Est GFR ( Amer) 72.8 Est GFR (Non-Af Amer) 62.8 BUN/Creatinine Ratio 29.1 H Glucose 116 H POC Glucose 125 H Calcium 9.4 Total Bilirubin 1.8 H Direct Bilirubin 0.3 H AST 32 ALT 52 Alkaline Phosphatase 83 Ammonia C-Reactive Protein 6.00 H Total Protein 6.4 Albumin 3.3 L Nasal Screen MRSA (PCR) Digoxin 08/23/22 11:27 WBC RBC Hgb Hct MCV MCH MCHC RDW Std Deviation RDW Coeff of Baldo Plt Count MPV ESR ABG pH ABG pCO2 ABG pO2 ABG HCO3 ABG O2 Saturation ABG Base Excess Sam Test Oxygen Given Sodium Potassium Chloride Carbon Dioxide Anion Gap BUN Creatinine Est Cr Clr Drug Dosing Est GFR ( Amer) Est GFR (Non-Af Amer) BUN/Creatinine Ratio Glucose POC Glucose 233 H Calcium Total Bilirubin Direct Bilirubin AST ALT Alkaline Phosphatase Ammonia C-Reactive Protein Total Protein Albumin Nasal Screen MRSA (PCR) Digoxin
[2022-08-23] MEDS: LANTUS PER UNIT CHARGE SQ SCH ×2 (13:44→21:08)
[2022-08-23] MEDS ORDERED: FUROSEMIDE 40 MG/4 ML VIAL IV ONE (16:00)
[2022-08-23] MEDS: DIGOXIN 0.125 MG TAB PO SCH (18:13)
[2022-08-23] MEDS: ACETAMINOPHEN 325 MG TAB PO PRN (23:51)
[2022-08-24] MEDS: ARTIFICIAL TEARS OP SCH ×12 (02:18→23:17)
[2022-08-24 06:07] LABS: BUN Creatinine Ratio 31.8 (10-20); Calcium 9.4 mg/dl (8.5-10.1); Creatinine Clr Calc Pharmacy 91.4 ml/min; Est GFR (African American) 78.4 ml/min; Est GFR (Non-African American) 67.7 ml/min; Magnesium 2.2 mg/dl (1.7-2.4); Potassium 4.4 mmol/L (3.5-5.1)
[2022-08-24] MEDS: LEVOTHYROXINE SODIUM 125 MCG TABLET PO SCH (06:08)
[2022-08-24] MEDS: INSULIN ASPART PER UNIT SC SCH ×4 (09:48→20:58)
[2022-08-24] MEDS: LANTUS PER UNIT CHARGE SQ SCH ×2 (09:48→20:58)
[2022-08-24] MEDS: INSULIN HUMAN NPH SC SCH (09:49)
[2022-08-24] MEDS: ERYTHROMYCIN OP OINT 5 MG/GM 3.5 GM TUBE OPB SCH ×2 (09:54→20:59)
[2022-08-24] MEDS: CHOLECALCIFEROL 1,000 UNITS 25 MCG TAB PO SCH (09:55)
[2022-08-24] MEDS: APIXABAN 5 MG TABLET PO SCH ×2 (09:55→21:00)
[2022-08-24] MEDS: DULoxetine HCL 60 MG CAP PO SCH (09:55)
[2022-08-24] MEDS: allopurinoL 300 MG TAB PO SCH (09:55)
[2022-08-24] MEDS: ASPIRIN 81 MG ECTAB PO SCH (09:55)
[2022-08-24] MEDS: buPROPion XL 150 MG TABCR PO SCH (09:55)
[2022-08-24] MEDS: ATORVASTATIN 10 MG TAB PO SCH (09:55)
[2022-08-24] MEDS: METOPROLOL SUCC 50MG EXT REL TAB PO SCH ×2 (09:56→21:00)
[2022-08-24] MEDS: SENNA 8.6 MG TAB PO SCH ×2 (09:56→20:59)
[2022-08-24] MEDS: PANTOprazole 40 MG TAB PO SCH (09:56)
[2022-08-24] MEDS: GABAPENTIN 300 MG CAP PO SCH ×4 (09:56→21:00)
[2022-08-24] MEDS: predniSONE 50 MG TAB PO SCH (09:56)
[2022-08-24] MEDS: POTASSIUM CHLORIDE CRTAB 20 MEQ TABCR PO SCH ×2 (09:56→20:59)
[2022-08-24] MEDS: MULTIVITAMIN TAB PO SCH (09:56)
[2022-08-24] MEDS: terbinafine HCL 250 MG TAB PO SCH (09:56)
[2022-08-24] MEDS: MAGNESIUM OXIDE 400 MG TAB PO SCH (09:56)
[2022-08-24] MEDS: LIDOCAINE 5% 1 PATCH TD SCH (09:56)
[2022-08-24] MEDS: NYSTATIN POWDER 15GM BTL EXT SCH ×2 (11:09→21:21)
[2022-08-24] MEDS: ACETAMINOPHEN 325 MG TAB PO PRN (11:13)
--- NOTE | 2022-08-24 14:03 | Hospitalist Progress Note ---
Date of Service August 24, 2022 Assessment & Plan (1) Acute heart failure with preserved ejection fraction: Plan: Poor acoustic windows on repeat echo, unable to visualize right heart well. Clinically, he has gained at least 20 lbs from his baseline in Jun 2022. He has been on high-dose prednisone for GCA treatment. This may have contributed to fluid retention. He has known pulmonary hypertension with right heart failure chronically. Net 2.8 L out overnight. Legs feels improved per patient. Cont diuresis per cariology recommendations. (2) Hypoxia: Plan: 2/2 acute heart failure. Cont diuretics as above and wean supplemental oxygen as tolerated. Appears to be doing well with hypoxia resolved on room air at this time (3) COPD, moderate: Plan: chronic, stable. No active wheezing at this time. (4) Interstitial lung disease: (5) Diabetes mellitus, type 2: Plan: - Last A1C was 11.6 in 06/16/22 - Outpatient since last admission has required increased insulin secondary to high steroid dosing for temporal arteritis: Continue Lantus 105 U QAM and 65 QPM, TID uses 14 U Novolog with meals plus sliding scale (6) GCA (giant cell arteritis): Plan: Presented in Jul 2022 with symptoms. TA biopsy was negative. Cont course of steroids per rheumatology as there was clinical improvement. Continues prednisone, currently 50mg PO daily, decrease by 10mg per week, will start 40mg daily on 08/25. Likely contributing to weight gain. Patient denies any visual disturbances, headaches or jaw pain. (7) Paroxysmal atrial fibrillation: Plan: chronic, paced rhythm with afib underlying on telemetry, continues on apixaban, cont metoprolol and digoxin per home regimen. Rate is controlled. (8) Gout: Plan: Acute gout flare of 1st MTP, improved. Uncertain chronicity as patient has neuropathy and is not affected with pain or discomfort. He continues on prednisone taper for underlying GCA and chronic allopurinol. The joint is improved. No indication for additional agents to treat flare at this time. (9) Onychomycosis: Plan: severe onychomycosis of all nails. H/O cellulitis in this diabetic immunosuppressed patient. Opting to treat wtih oral terbinafine x 6-12 weeks. Cont daily terbinafine. Monitor periodic LFTs. (10) Wound of right leg: Plan: Stage II ulceration with some seepage likely 2/2 underlying LE edema in setting of weight gain and heart failure exacerbation. Doesn't appear to be acutely infected. Cont diuresis as above. Wound care nurse to evaluate further. Continue OPTi foam. DVT proph: apixaban Full code Dispo-from [facility]. He is improved and per PT he can return home. Will DC pending pending cardiology recommendations. Patient may need a couple more days of diuresis. Marina Freeman DO [facility] Hospitalist Admission and Anticipated Discharge Date Admission Date: August 22, 2022 Subjective 72 yo M presented with bilateral leg pain and seepage from his legs and toe wound. There is no erythema on his legs today. He reports no pain in his lower extremities at this time. He denies any seepage of wounds in the right lower extremity wound appears to improved under the OPTi foam. He denies any fevers or chills. His standing weight was 151 kg He is tolerating p.o. He is oxygenating 93% on room air. Review of Systems Review of Systems: All systems were reviewed and negative except as indicated on subjective above. Physical Exam Physical Exam: CONSTITUTIONAL: morbid obesity, vitals as above, generally well-appearing, NAD EYES: normal conjunctivae, no scleral icterus, ENT: external ear and nose normal, MMM NECK: trachea midline RESPIRATORY: clear to auscultation bilaterally, no crackles, rales or wheezes, normal respiratory effort CARDIOVASCULAR: regular rate and rhythm, S1 and 2 heard without murmurs, gallops or rubs, no JVD, 2+ peripheral edema CHEST: inspection of chest was normal GASTROINTESTINAL: soft, nontender, ND, protuberant, no guarding MUSCULOSKELETAL: strength 5/5 throughout, head is normocephalic SKIN: warm and dry, Stage II ulcerative wound on RLE anteriorly-improved, spray drier 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 Notably there is a darker coloration that appears chronic to his lower extremities bilaterally NEUROLOGIC: CN 2-12 grossly intact, no sensory deficit, normal cognition, normal speech, no tremor PSYCHIATRIC: alert cooperative and oriented to person, place and time. Results & Data Results & Data ([facility]) Vital Signs (Past 12 Hours) Vital Signs Temp Pulse Pulse Resp BP Pulse Ox O2 Del Method 08/24/22 08:00 78 08/24/22 11:48 36.6 C 81 20 120/75 93 Room Air 08/24/22 07:53 36.6 C 80 20 130/78 96 Nasal Cannula 08/24/22 03:55 36.4 C L 91 H 20 144/78 H 98 Nasal Cannula O2 Flow Rate 08/24/22 08:00 08/24/22 11:48 08/24/22 07:53 4 08/24/22 03:55 4 Laboratory Results BMP 08/24/22 05:21 Sodium 138 Potassium 4.4 Chloride 100 Carbon Dioxide 35 H BUN 35 H Creatinine 1.10 Glucose 106 H Calcium 9.4 Medications Administered Current Inpatient Medications Acetaminophen (Acetaminophen 325 Mg Tab) 650 mg PO Q4H PRN PRN Reason: Moderate Pain Stop: 09/21/22 11:17 Last Admin: 08/24/22 11:13 Dose: 650 mg Albuterol (Albuterol Hfa 8 Gm Inhaler) 2 puffs INH Q4 PRN PRN Reason: Shortness Of Breath Or Wheezing Stop: 09/21/22 11:55 Allopurinol (Allopurinol 300 Mg Tab) 300 mg PO DAILY OFE Stop: 09/22/22 08:59 Last Admin: 08/24/22 09:55 Dose: 300 mg Apixaban (Apixaban 5 Mg Tablet) 5 mg PO Q12 OFE Stop: 09/21/22 20:59 Last Admin: 08/24/22 09:55 Dose: 5 mg Artificial Tears (Artificial Tears) 1 drops OP Q2H OFE Stop: 09/21/22 13:29 Last Admin: 08/24/22 13:27 Dose: 1 drops Aspirin (Aspirin 81 Mg Ectab) 81 mg PO DAILY OFE Stop: 09/22/22 08:59 Last Admin: 08/24/22 09:55 Dose: 81 mg Atorvastatin Calcium (Atorvastatin 10 Mg Tab) 10 mg PO DAILY OFE Stop: 09/22/22 08:59 Last Admin: 08/24/22 09:55 Dose: 10 mg Bupropion HCl (Bupropion Xl 150 Mg Tabcr) 150 mg PO DAILY OFE Stop: 09/22/22 08:59 Last Admin: 08/24/22 09:55 Dose: 150 mg Dextrose (Dextrose 50% 50 Ml Syringe) 25 - 50 ml IV UD PRN; Protocol PRN Reason: Hypoglycemia Protocol Stop: 09/21/22 11:17 Last Admin: 08/22/22 21:45 Dose: 50 ml Digoxin (Digoxin 0.125 Mg Tab) 0.125 mg PO DAILY@1800 [facility] Stop: 09/22/22 17:59 Last Admin: 08/23/22 18:13 Dose: 0.125 mg Duloxetine HCl (Duloxetine Hcl 60 Mg Cap) 60 mg PO DAILY [facility] Stop: 09/22/22 08:59 Last Admin: 08/24/22 09:55 Dose: 60 mg Erythromycin (Erythromycin Op Oint 5 Mg/Gm 3.5 Gm Tube) 1 appln OPB BID [facility] Stop: 09/01/22 20:59 Last Admin: 08/24/22 09:54 Dose: Not Given Gabapentin (Gabapentin 300 Mg Cap) 300 mg PO QID [facility] Stop: 09/21/22 12:59 Last Admin: 08/24/22 13:29 Dose: Not Given Glucagon (Glucagon For Inj 1 Mg Vial) 1 mg SQ UD PRN; Protocol PRN Reason: Hypoglycemia Protocol Stop: 09/21/22 11:17 Glucose (Glucose 40% Gel 15 Gm Tube) 15 - 30 gm PO UD PRN; Protocol PRN Reason: Hypoglycemia Protocol Stop: 09/21/22 11:17 Glucose (Glucose 10 Tab/Tube) 4 - 8 tab PO UD PRN; Protocol PRN Reason: Hypoglycemia Treatment Stop: 09/21/22 11:17 Insulin Aspart (Insulin Aspart Per Unit) 0 units SC ACHS [facility] Stop: 09/21/22 11:29 Last Admin: 08/24/22 12:25 Dose: 25 units Insulin Glargine (Lantus Per Unit Charge) 0 units SQ BID [facility]; Protocol Stop: 09/22/22 12:44 Last Admin: 08/24/22 09:48 Dose: 60 units Insulin Human NPH (Insulin Human Nph) 40 units SC DAILY [facility] Stop: 09/22/22 08:59 Last Admin: 08/24/22 09:49 Dose: 40 units Levothyroxine Sodium (Levothyroxine Sodium 125 Mcg Tablet) [facility]: 09/22/22 06:29 Last Admin: 08/24/22 06:08 Dose: 250 mcg Lidocaine (Lidocaine 5% 1 Patch) 1 patch TD DAILY [facility] Stop: 09/22/22 08:59 Last Admin: 08/24/22 09:56 Dose: 1 patch Loratadine (Loratadine 10 Mg Tab) 20 mg PO DAILY PRN PRN Reason: .allergies Stop: 09/21/22 11:55 Magnesium Oxide (Magnesium Oxide 400 Mg Tab) 400 mg PO DAILY [facility] Stop: 09/22/22 08:59 Last Admin: 08/24/22 09:56 Dose: 400 mg Metoprolol Succinate (Metoprolol Succ 50mg Ext Rel Tab) 100 mg PO BID [facility] Stop: 09/21/22 20:59 Last Admin: 08/24/22 09:56 Dose: 100 mg Miscellaneous (Carbohydrates For Hypoglycemia ) 15 - 30 gm PO UD PRN PRN Reason: Hypoglycemia Protocol Stop: 09/21/22 11:17 Last Admin: 08/22/22 21:18 Dose: 30 gm Miscellaneous (Remove Lidoderm Patch) 1 each N/A DAILY@2100 [facility] Stop: 09/21/22 20:59 Last Admin: 08/23/22 21:09 Dose: 1 each Miscellaneous Information (Pharmacy Glycemic Mgmt Consult) 1 each N/A UD PRN; Protocol PRN Reason: Consult Stop: 09/21/22 11:57 Multivitamins (Multivitamin Tab) 1 tab PO QAM [facility] Stop: 09/22/22 08:59 Last Admin: 08/24/22 09:56 Dose: 1 tab Naphazoline HCl/Pheniramine Maleate (Naphazolin/Pheniramin Oph Soln 75 Drops/5 Ml Btl) 2 drops OP Q6 PRN PRN Reason: IRRITATED EYES Stop: 09/21/22 11:55 Nystatin (Nystatin Powder 15gm Btl) 1 appln EXT BID [facility] Stop: 09/21/22 20:59 Last Admin: 08/24/22 11:09 Dose: 1 appln Ondansetron HCl (Ondansetron Inj 2 Mg/Ml 2 Ml Vial) 4 mg IV Q4H PRN PRN Reason: Nausea And Vomiting Stop: 09/21/22 11:17 Pantoprazole Sodium (Pantoprazole 40 Mg Tab) 40 mg PO DAILY [facility] Stop: 09/22/22 08:59 Last Admin: 08/24/22 09:56 Dose: 40 mg Potassium Chloride (Potassium Chloride Crtab 20 Meq Tabcr) 20 meq PO BID [facility] Stop: 09/21/22 20:59 Last Admin: 08/24/22 09:56 Dose: 20 meq Prednisone (Prednisone 50 Mg Tab) 50 mg PO DAILY [facility] Stop: 09/22/22 08:59 Last Admin: 08/24/22 09:56 Dose: 50 mg Sennosides (Senna 8.6 Mg Tab) 8.6 mg PO BID OFE Stop: 09/21/22 20:59 Last Admin: 08/24/22 09:56 Dose: 8.6 mg Terbinafine HCl (Terbinafine Hcl 250 Mg Tab) 250 mg PO DAILY [facility] Stop: 11/13/22 09:01 Last Admin: 08/24/22 09:56 Dose: 250 mg Vitamin D (Cholecalciferol 1,000 Units 25 Mcg Tab) 2,000 units PO DAILY [facility] Stop: 09/22/22 08:59 Last Admin: 08/24/22 09:55 Dose: 2,000 units (1) Diabetes mellitus, type 2 Diabetes mellitus residential insulin use: with termite helper use Diabetes mellitus complication status: with hypoglycemia Diabetes mellitus complication detail: without coma Qualified Code(s): E11.649 - Type 2 diabetes mellitus with hypoglycemia without coma; Z79.4 - custodial (current) use of insulin (2) Gout Gout site: toe Gout etiology: unspecified cause Chronicity: acute Laterality: right Qualified Code(s): M10.9 - Gout, unspecified
--- NOTE | 2022-08-24 14:27 | Cardiology Progress Note ---
Date of Service August 24, 2022 Assessment & Plan (1) Acute heart failure with preserved ejection fraction: (2) Chronic diastolic CHF (congestive heart failure): (3) Atrial fibrillation: Plan 72-year-old male with longstanding history of past paroxysmal now persistent atrial fibrillation, diastolic LV dysfunction with past diastolic and right heart failure. Patient presents with acute decompensated diastolic heart failure right greater than left manifesting as increased abdominal girth weight gain and lower extremity edema. Patient clinically improved with weight down substantially. Still with chronic volume overload secondary to diastolic dysfunction right heart failure, hypoventilation. Laboratory studies reflect contraction alkalosis elevated BUN We will transition medications to oral with furosemide 60 mg p.o. twice daily (increased dose from outpatient), retrial low-dose spironolactone at 12.5 mg p.o. daily hold oral potassium Patient to continue wear oxygen at night. Previously had BiPAP but was discontinued due to noncompliance Admission and Anticipated Discharge Date Admission Date: August 22, 2022 Subjective Patient seen and examined, chart, medications, telemetry reviewed. Sleeping sitting out of a chair. No acute complaints. Notes improved abdominal girth and lower extremity edema Physical Exam Constitutional: + morbidly obese Eyes: PERRL, conjunctivae normal, anicteric sclerae Neck: + thick neck Respiratory: normal respiratory effort, lungs clear to auscultation Cardiovascular: Rate/Rhythm: + irregularly irregular Vessels: no JVD Extremities: + edema (2-3+ lower extremity edema with open wound) Results & Data ([facility]) Vital Signs (Past 12 Hours) Vital Signs Temp Pulse Pulse Resp BP Pulse Ox O2 Del Method 08/24/22 08:00 78 08/24/22 11:48 36.6 C 81 20 120/75 93 Room Air 08/24/22 07:53 36.6 C 80 20 130/78 96 Nasal Cannula 08/24/22 03:55 36.4 C L 91 H 20 144/78 H 98 Nasal Cannula O2 Flow Rate 08/24/22 08:00 08/24/22 11:48 08/24/22 07:53 4 08/24/22 03:55 4 Laboratory Results Laboratory Results - last 24 hr 08/23/22 08/23/22 08/24/22 16:39 20:41 05:21 Sodium 138 Potassium 4.4 Chloride 100 Carbon Dioxide 35 H Anion Gap 3 BUN 35 H Creatinine 1.10 Est Cr Clr Drug Dosing 91.4 Est GFR ( Amer) 78.4 Est GFR (Non-Af Amer) 67.7 BUN/Creatinine Ratio 31.8 H Glucose 106 H POC Glucose 250 H 336 H* Calcium 9.4 Magnesium 2.2 08/24/22 08/24/22 07:58 11:53 Sodium Potassium Chloride Carbon Dioxide Anion Gap BUN Creatinine Est Cr Clr Drug Dosing Est GFR ( Amer) Est GFR (Non-Af Amer) BUN/Creatinine Ratio Glucose POC Glucose 90 233 H Calcium Magnesium
[2022-08-24] MEDS: SPIRONOLACTONE 12.5 MG TAB PO SCH (16:59)
[2022-08-24] MEDS: FUROSEMIDE 20 MG TAB PO SCH (17:00)
[2022-08-24] MEDS: DIGOXIN 0.125 MG TAB PO SCH (18:07)
[2022-08-25] MEDS: ARTIFICIAL TEARS OP SCH ×6 (01:15→13:05)
[2022-08-25] MEDS: LEVOTHYROXINE SODIUM 125 MCG TABLET PO SCH (08:18)
[2022-08-25] MEDS: POTASSIUM CHLORIDE CRTAB 20 MEQ TABCR PO SCH (08:19)
[2022-08-25] MEDS: ASPIRIN 81 MG ECTAB PO SCH (08:19)
[2022-08-25] MEDS: GABAPENTIN 300 MG CAP PO SCH ×2 (08:19→13:05)
[2022-08-25] MEDS: ERYTHROMYCIN OP OINT 5 MG/GM 3.5 GM TUBE OPB SCH (08:19)
[2022-08-25] MEDS: SENNA 8.6 MG TAB PO SCH (08:19)
[2022-08-25] MEDS: FUROSEMIDE 20 MG TAB PO SCH (08:20)
[2022-08-25] MEDS: PANTOprazole 40 MG TAB PO SCH (08:20)
[2022-08-25] MEDS: SPIRONOLACTONE 12.5 MG TAB PO SCH (08:20)
[2022-08-25] MEDS: ATORVASTATIN 10 MG TAB PO SCH (08:20)
[2022-08-25] MEDS: MAGNESIUM OXIDE 400 MG TAB PO SCH (08:20)
[2022-08-25] MEDS: terbinafine HCL 250 MG TAB PO SCH (08:20)
[2022-08-25] MEDS: METOPROLOL SUCC 50MG EXT REL TAB PO SCH (08:20)
[2022-08-25] MEDS: CHOLECALCIFEROL 1,000 UNITS 25 MCG TAB PO SCH (08:20)
[2022-08-25] MEDS: MULTIVITAMIN TAB PO SCH (08:20)
[2022-08-25] MEDS: allopurinoL 300 MG TAB PO SCH (08:20)
[2022-08-25] MEDS: buPROPion XL 150 MG TABCR PO SCH (08:20)
[2022-08-25] MEDS: DULoxetine HCL 60 MG CAP PO SCH (08:20)
[2022-08-25] MEDS: APIXABAN 5 MG TABLET PO SCH (08:21)
[2022-08-25] MEDS: LIDOCAINE 5% 1 PATCH TD SCH (08:21)
[2022-08-25 08:34] LABS: BUN Creatinine Ratio 30.5 (10-20); Calcium 9.7 mg/dl (8.5-10.1); Creatinine Clr Calc Pharmacy 85.6 ml/min; Est GFR (Non-African American) 62.2 ml/min; Magnesium 2.2 mg/dl (1.7-2.4); Potassium 4.5 mmol/L (3.5-5.1)
[2022-08-25 08:36] LABS: Hematocrit (blood only) 40.9 % (42.0-52.0); Mean Corpuscular Hemoglobin 26.7 pg (25.0-34.0); Mean Corpuscular Hgb Conc 31.8 g/dL (32.0-36.0); Mean Platelet Volume 11.2 fL (9.4-12.4); Platelet Count 135 K/uL (130-400); RDW Coefficient of Variation 16.2 % (11.5-14.5); RDW Standard Deviation 49.7 fL (36.4-46.3); Red Blood Count 4.87 M/uL (4.70-6.10)
[2022-08-25] MEDS: INSULIN ASPART PER UNIT SC SCH ×2 (08:42→13:05)
[2022-08-25] MEDS: NYSTATIN POWDER 15GM BTL EXT SCH (08:43)
[2022-08-25] MEDS: INSULIN HUMAN NPH SC SCH (08:43)
[2022-08-25] MEDS ORDERED: LANTUS PER UNIT CHARGE SQ SCH (09:00)
[2022-08-25] MEDS ORDERED: predniSONE 20 MG TAB PO SCH (09:00)
--- NOTE | 2022-08-25 11:34 | Cardiology Progress Note ---
Date of Service August 25, 2022 Assessment & Plan (1) Acute heart failure with preserved ejection fraction: (2) Chronic diastolic CHF (congestive heart failure): (3) Atrial fibrillation: Plan 72-year-old male with longstanding history of past paroxysmal now persistent atrial fibrillation, diastolic LV dysfunction with diastolic and right heart failure. Patient presented this admission with acute decompensated diastolic heart failure right greater than left manifesting as increased abdominal girth weight gain and lower extremity edema. Patient clinically improved though remains overloaded, continuing to diurese with oral furosemide (60 mg BID) and low dose spironolactone. Continue as prescribed. Continue oxygen supplementation; BiPAP previously discontinued due to noncompliance. Increase activity as tolerated. Will need close outpatient follow-up. Admission and Anticipated Discharge Date Admission Date: August 22, 2022 Supervising Physician Co-Signing Physician Notes Patient was seen and examined, chart, medications, telemetry reviewed. Patient is seen sitting out of bed in chair. Presenting symptoms of dyspnea and increasing lower extremity edema have improved less increase in abdominal girth. Has continued to manifest diuresis now on oral regimen Plan continue as ordered Subjective Patient seen and examined. Chart, medications, and telemetry reviewed. Feeling better. Less abdominal bloating and peripheral edema. I/O's negative 8,410 mLs overall. Patient reports weight is down 10 pounds. Valentine catheter remains in place No chest pain, palpitations, dizziness, near syncope, subjective fevers, or chills Review of Systems Review of Systems: Complete Review of Systems is as stated above, negative, or noncontributory Physical Exam Physical Exam: Examined in the bedside chair General: A&Ox3. NAD. HENT: Normocephalic. Atraumatic. Eyes: PER. Conjunctiva pink, sclera clear. Neck: No carotid bruits. No overt JVD. Heart: Irregularly irregular at 80 bpm. Lungs: Clear to auscultation. Abdomen: +BS. Soft. Nontender. No masses or organomegaly. Extremities: Stasis changes. 1+ edema. No overt cellulitis. No cyanosis. Limited neurological examination is without focal deficits. Pulses: radial=2/4, posterior tibial=0/4. Results & Data ([facility]) Vital Signs (Past 12 Hours) Vital Signs Temp Pulse Pulse Resp BP Pulse Ox O2 Del Method 08/25/22 10:38 36.3 C L 78 18 126/86 94 Nasal Cannula 08/25/22 09:41 83 08/25/22 07:27 36.5 C 81 18 124/79 97 Nasal Cannula 08/25/22 04:00 36.5 C 72 20 149/68 H 96 Nasal Cannula 08/24/22 23:50 101 H O2 Flow Rate 08/25/22 10:38 4 08/25/22 09:41 08/25/22 07:27 4 08/25/22 04:00 2 08/24/22 23:50 Laboratory Results CBC 08/25/22 Range/Units 07:38 WBC 9.60 (4.8-10.8) K/ul RBC 4.87 (4.70-6.10) M/uL Hgb 13.0 L (14.0-18.0) g/dl Hct 40.9 L (42.0-52.0) % Plt Count 135 (130-400) K/uL Comprehensive Metabolic Panel 08/25/22 Range/Units 07:38 Sodium 138 (136-145) mmol/L Potassium 4.5 (3.5-5.1) mmol/L Chloride 101 (98-107) mmol/L Carbon Dioxide 33 H (21-32) mmol/L BUN 36 H (6-23) mg/dl Creatinine 1.18 (0.6-1.4) mg/dl Glucose 213 H (70-99(Fasting)) mg/dl Calcium 9.7 (8.5-10.1) mg/dl Intake and Output 08/24/22 08/25/22 08/25/22 22:59 06:59 14:59 Intake Total 560 / 1625 450 / 1625 Output Total 1400 / 2850 1450 / 2850 Balance -840 / -1225 -1000 / -1225 Intake: Oral 560 / 1625 450 / 1625 Output: Urine Amount (Catheter) 1400 / 2850 1450 / 2850 Valentine/Indwelling 1400 / 2850 1450 / 2850 Other: Weight 153.7 kg
--- NOTE | 2022-08-25 12:36 | Discharge Summary ---
Discharge Summary Date of Service August 25, 2022 Notes For Next Care Provider Please follow weights regularly. Dry weight in Jun 2022 was 142kg and he is 152 kg now. Placed on spironolactone and a higher dose of Lasix. Close cardiology/HF followup recommended. Will need BMP in two weeks for monitoring after the changes. Please monitor LFTs on terbinafine and evaluate nails for any need for extension Medication Changes From Visit INCREASE Lasix to 60mg BID START spironolactone 12.5mg PO daily START Terbinafine 250mg PO daily x 6 weeks Cont prednisone taper, started on the 40mg dose on 08/25. Admission HPI Per Admitting Provider This is a 72-year-old male with PMHx of DM type II, CAD, chronic diastolic CHF, cardiac pacemaker in situ, paroxysmal A-fib on chronic anticoagulation, CKD, SALAS and nocturnal hypoxemia wearing supplemental O2, sarcoidosis, morbid obesity, interstitial lung disease, who presents from [facility] to the emergency room for complaints of right lower extremity swelling and edema with some drainage from area of the foot. While visiting the patient he appears to be short of breath, sitting there with huffing and puffing. He is on 4 L of oxygen via OxyMask however sats are maintaining at 97% on room air. He denies specific shortness of breath. He notes that his left lower leg is draining some clear fluid from a open blister, and that it appears more red than normal. He never has any pain in his lower extremities due to polyneuropathy. His right great toe also is more red currently, and admits to a history of gout, but denies any specific pain secondary to polyneuropathy again. He denies any recent fevers chills or sweats. Patient has been able to walk on his feet with use of a walker, denies any recent falls. He states he has been taking his medication as directed, include Lasix 40 mg po BID, and metolazone as needed however he cannot recall if he has taken this recently. He states his dry weight is approximately 340 pounds, but he has recently gained some weight. Patient was recently hospitalized here from 07/29/22 to 08/01/2022 for evaluation of right ear jaw and head pain with hypoxia found to have temporal arteritis along with acute on chronic diastolic heart failure. He has been on a chronic high-dose prednisone taper since then, currently on 50 mg/day, and scheduled to transition to 40 mg daily next Thursday. Has been following up with his eye doctor as an outpatient. He has been a resident of [facility] for about 3 to 4 years per his report. Principal Dx & Hospital Course #1 = Principal Diagnosis (1) Acute heart failure with preserved ejection fraction: Poor acoustic windows on repeat echo, unable to visualize right heart well. Clinically, he has gained at least 20 lbs from his baseline in Jun 2022 and has acute right heart failure. Cardiology was consulted and continued to oversee diuresis efforts. He has been on high-dose prednisone for GCA treatment. This may have contributed to fluid retention. He has known pulmonary hypertension with right heart failure chronically. Net 8 L negative fluid balance at time of discharge, but he is still above his baseline weight and with trace edema to bilateral lower extremities at time of discharge. Needs close primary care discharge and followup with heart failure clinic. (2) Hypoxia: 2/2 acute heart failure. Hypoxia resolved with diuretic therapy. (3) COPD, moderate: chronic, stable. No active wheezing at this time. (4) Interstitial lung disease: (5) Diabetes mellitus, type 2: - Last A1C was 11.6 in 06/16/22 - Outpatient since last admission has required increased insulin secondary to high steroid dosing for temporal arteritis: Cont basal bolus insulin. (6) GCA (giant cell arteritis): Presented in Jul 2022 with symptoms. TA biopsy was negative. Cont course of steroids per rheumatology as there was clinical improvement. Continues prednisone, currently 50mg PO daily, decrease by 10mg per week, started 40mg daily on 08/25. Likely contributing to weight gain. Patient denies any visual disturbances, headaches or jaw pain. (7) Paroxysmal atrial fibrillation: chronic, paced rhythm with afib underlying on telemetry, continues on apixaban, cont metoprolol and digoxin per home regimen. Rate is controlled. (8) Gout: Acute gout flare of 1st MTP, improved. Uncertain chronicity as patient has neuropathy and is not affected with pain or discomfort. He continues on prednisone taper for underlying GCA and chronic allopurinol. The joint is improved. No indication for additional agents to treat flare at this time. There is no evidence of cellulitis. (9) Onychomycosis: severe onychomycosis of all nails. H/O cellulitis in this diabetic immunosuppressed patient. Opting to treat wtih oral terbinafine x 6-12 weeks. Cont daily terbinafine. Monitor periodic LFTs. (10) Wound of right leg: Stage II ulceration with some seepage likely 2/2 underlying LE edema in setting of weight gain and heart failure exacerbation. Doesn't appear to be acutely infected. Cont diuresis as above. Wound care nurse to evaluate further. Continue OPTi foam. DVT proph: apixaban Full code Dispo-from [facility]. He is improved and per PT he can return home. Will DC pending pending cardiology recommendations. Patient may need a couple more days of diuresis. Marina Freeman DO [facility] Hospitalist Discharge Exam CONSTITUTIONAL: morbid obesity, vitals as above, generally well-appearing, NAD EYES: normal conjunctivae, no scleral icterus, ENT: external ear and nose normal, MMM NECK: trachea midline RESPIRATORY: clear to auscultation bilaterally, no crackles, rales or wheezes, normal respiratory effort CARDIOVASCULAR: regular rate and rhythm, S1 and 2 heard without murmurs, gallops or rubs, no JVD, 1+ peripheral edema CHEST: inspection of chest was normal GASTROINTESTINAL: soft, nontender, ND, protuberant, no guarding MUSCULOSKELETAL: strength 5/5 throughout, head is normocephalic SKIN: warm and dry, Stage II ulcerative wound on RLE anteriorly-improved, soap drier operator appearing and no surrounding redness. Notably there is a darker coloration that appears chronic to his lower extremities bilaterally NEUROLOGIC: CN 2-12 grossly intact, no sensory deficit, normal cognition, normal speech, no tremor PSYCHIATRIC: alert cooperative and oriented to person, place and time. Updated Medication List Medication Instructions Recorded Confirmed Type acetaminophen 325 mg tablet 650 mg PO Q4 PRN Fever Or Pain 06/15/22 08/22/22 History (Tylenol) albuterol sulfate 90 mcg/actuation 2 puff inhalation Q4 PRN Shortness 06/15/22 08/22/22 History aerosol inhaler Of Breath Or Wheezing allopurinol 300 mg tablet 300 mg PO DAILY 06/15/22 08/22/22 History apixaban 5 mg tablet 5 mg PO Q12 06/15/22 08/22/22 History aspirin 81 mg tablet,delayed 81 mg PO DAILY 06/15/22 08/22/22 History release atorvastatin 10 mg tablet 10 mg PO DAILY 06/15/22 08/22/22 History bupropion HCl 150 mg 24 hr tablet, 150 mg PO DAILY 06/15/22 08/22/22 History extended release cholecalciferol (vitamin D3) 25 50 mcg PO DAILY 06/15/22 08/22/22 History mcg (1,000 unit) tablet (Vitamin D3) digoxin 125 mcg (0.125 mg) tablet 125 mcg PO DAILY 06/15/22 08/22/22 History duloxetine 60 mg capsule,delayed 60 mg PO DAILY 06/15/22 08/22/22 History release epinephrine 0.3 mg/0.3 mL 0.3 mg IM DIRECTED PRN Allergic 06/15/22 08/22/22 History injection, auto-injector Reaction erythromycin 5 mg/gram (0.5 %) eye 1 applic OPB DIRECTED 06/15/22 08/22/22 History ointment gabapentin 300 mg capsule 300 mg PO QID 06/15/22 08/22/22 History levothyroxine 125 mcg tablet 250 mcg PO DAILY 06/15/22 08/22/22 History lidocaine 5 % topical patch 1 patch topical DAILY 06/15/22 08/22/22 History loratadine 10 mg tablet 20 mg PO DAILY PRN .allergies 06/15/22 08/22/22 History magnesium oxide 420 mg tablet 420 mg PO DAILY 06/15/22 08/22/22 History multivitamin 1 tab PO DAILY 06/15/22 08/22/22 History naphazoline 0.025 %-pheniramine 2 drp ophthalmic (eye) Q6 PRN .. 06/15/22 08/22/22 History 0.3 % eye drops (Naphcon-A) nitroglycerin 0.4 mg sublingual 0.4 mg sublingual DIRECTED PRN 06/15/22 08/22/22 History tablet (Nitrostat) Chest Pain nystatin 100,000 unit/gram topical 1 applic topical BID 06/15/22 08/22/22 History powder omeprazole 20 mg capsule,delayed 20 mg PO DAILY 06/15/22 08/22/22 History release polyvinyl alcohol-povidone (PF) 1 drp OPB DIRECTED 06/15/22 08/22/22 History 1.4 %-0.6 % eye drops in a dropperette (Refresh Classic (PF)) sennosides 8.6 mg tablet (senna) 8.6 mg PO BID 06/15/22 08/22/22 History metoprolol succinate 50 mg 100 mg PO BID #60 tabs 06/23/22 08/22/22 Rx tablet,extended release 24 hr insulin glargine 100 unit/mL 65 unit subcut PM 07/29/22 08/22/22 History subcutaneous solution insulin glargine 100 unit/mL 105 unit subcut QAM 07/29/22 08/22/22 History subcutaneous solution insulin regular human 100 unit/mL 1 sliding scale dose subcut 07/29/22 08/22/22 History (3 mL) subcutaneous pen (Novolin R USEASDIRECTD FlexPen) insulin regular human 100 unit/mL 14 unit (0.14 mL) subcut TIDM #10 08/01/22 08/22/22 Rx injection solution (Novolin R mL Regular U-100 Insulin) potassium chloride 20 mEq 20 meq PO BID #60 tabs 08/01/22 08/22/22 Rx tablet,extended release(part/cryst) furosemide 20 mg tablet 60 mg PO BID17 #90 tabs 08/25/22 Rx prednisone 50 mg tablet 40 mg PO DAILY #30 tabs 08/25/22 08/22/22 Rx spironolactone 25 mg tablet 12.5 mg PO DAILY #30 tabs 08/25/22 Rx terbinafine HCl 250 mg tablet 250 mg PO DAILY #30 tabs 08/25/22 Rx Hospital Stay Data Consultations 08/22/22 09:12 ED Decision to Admit Stat 08/22/22 21:25 Consult Cardiology Routine Pending Results Patient Have Any Pending Studies at Discharge: No Discharge Instructions Given to Patient (Per Discharging Provider) Please take all medications as instructed on discharge list below. Please followup closely with your outpatient physician to monitor your weight and fluid balance. Please continue to take your weight daily. Please stick to a low salt, low sugar diet. You have been scheduled to follow-up with the wound care center for the wound on your right lower leg as above. Please continue on your prednisone taper per Rheumatology. You started prednisone 40mg PO daily on 08/25 and should continue this dose until 09/01. Start prednisone 30mg on 09/01 and continue to decrease by 10mg weekly every 7 days per Rheumatology recommendations. You were started on terbinafine to treat the fungal nail infection. This medication should be taken daily x 6 weeks, with an extension up to 12 weeks if needed, per your outpatient primary care provider. You will need labs to monitor your liver function while taking this medication. It was a pleasure taking care of you! Please call if you have any questions or problems. You can reach a [facility] hospitalist on duty at [facility] 24 hours a day by calling [phone]. Take care of yourself. Marina Freeman, [facility] Hospitalist Total Time Total Time Spent Total Time Spent (In Minutes): 60
== END 2022-08-25 15:18 | disposition home or self-care (01) | DRG 291 ==
LOC: ED 06:26 → 2N 09:41

== ENCOUNTER 2022-10-24 19:48 | Inpatient (IN) ==
--- NOTE | 2022-10-24 20:12 | Emergency Department Note ---
Impression & Plan Weakness ED Provider Note INFORMANT: Patient ED PROVIDER(S): Dandre Hinson DO CHIEF COMPLAINT: Generalized weakness, abdominal pain PLAN: Disposition: Admission Outpatient prescription management: [none] Discussion with: I spoke with the hospitalist, who will see the patient for admission/observation and further evaluation and consultation. MEDICAL DECISION MAKING: This is a 72-year-old male who presents to the ED with a chief complaint of generalized weakness. He was sent from [facility]. He reports a decrease in appetite. He also reports some stomach pain. He states that this pain is where the rash is on his abdominal wall. He has had the rash for over a month. Patient has no other specific complaints at this time. Sent in by staff with a generalized weakness. He does report that he has difficulty getting around in general. He uses a walker but a lot of time he just sits around. No other specific complaints at this time. His physical exam reveals a chronic appearing rash on the stomach. His stomach has some tenderness diff usely although it is mild. He is in no distress on my exam. He is requiring oxygen. He states that he uses oxygen at night at the nursing facility. History of morbid obesity and sleep apnea. The patient's CT scan and chest x- ray are suggestive of a left lower lobe pneumonia. The patient's CBC and chemistry panel did not show significant leukocytosis, anemia or electrolyte abnormality. Glucose was 335. Troponin was negative for myocardial infarction. Urine did not show infection. Digoxin level was normal. Because of the patient's weakness and pneumonia, he will be seen by the hospitalist for further evaluation and care. The patient was treated here with IV cefepime. The patient is not septic septic shock at this time Triage Nursing notes reviewed. Vital Signs: reviewed Prior /Outside records reviewed: none Differential diagnosis: Differential includes acute coronary syndrome, myocardial infarction, CVA, TIA, anemia, infection, pneumonia, UTI, pyelonephritis, poor nutrition, dehydration, electrolyte disturbance,hypoglycemia. Diagnostics, as interpreted by me: 12 lead ECG: Paced ventricular rhythm at a rate of 70 Cardiac Monitoring ordered: Paced ventricular rhythm at a rate of 70. No ST elevation. No PVCs. Normal QTc Medical decision rules: none Imaging studies: Chest x-ray: Left lower lobe pneumonia, CT scan of the abdomen pelvis: Left lower lobe pneumonia. Procedures: none. Critical care: none. HPI: See MDM above. PAST MEDICAL HISTORY: See Below PAST SURGICAL HISTORY: See Below SOCIAL HISTORY: See Below HOME MEDICATIONS: See Below ALLERGIES: See Below VITALS: See Below PHYSICAL EXAMINATION: See MDM for positive findings otherwise unremarkable. CONSTITUTIONAL/VITAL SIGNS: Reviewed GENERAL:done as appropriate INTEGUMENTARY: done as appropriate HEAD: done as appropriate EYES: done as appropriate RESPIRATORY: done as appropriate CARDIOVASCULAR:done as appropriate GI/ABDOMEN:done as appropriate EXTREMITIES: done as appropriate NEUROLOGICAL: done as appropriate PSYCHIATRIC:done as appropriate MUSCULOSKELETAL:done as appropriate TRIAGE NURSING DOCUMENTATION REVIEWED. Past Med/Surg History Medical History Bifascicular block CAD (coronary artery disease) CKD (chronic kidney disease) stage 3, GFR 30-59 ml/min Claustrophobia COPD, moderate Entropion of left lower eyelid Fatty liver Gout History of fracture Thyroid cartilage in 2019 Interstitial lung disease Nephrolithiasis Osteoarthritis Sarcoidosis possible- evaluated by pulmonary; felt no active sarcoidosis and would not merit steroid therapy given weight/diabetic state. 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 [employer] Pacer check 12/24/17 Status post incision and drainage Family History Mother Cancer Social History Smoking Status: Never smoker Second Hand Exposure: No; Hx Alcohol Use: No Hx Substance Use: No Preferred Language: Arabic Communication Ability: Effective Visual Impairment: Limited Hearing Ability: Normal Liaison Engineer Required: No Beliefs That Will Affect Care: None marital status: Single Current Living Situation: Prison Current Living Situation Comment: [facility] current occupational status: retired How many Children do You have: 1 How many Children do You have Comment: children are not involved with care much per pt Feels Safe at Home: Yes Diet Comment: FLUID RESTRICTION caffeine: No during the past year weight has: other Physical Activity Frequency: Does not Exercise Gender Identity: Male Assistive Devices: Oxygen - Continuous and Walker Allergies Allergies Allergy/AdvReac Type Severity Reaction Status Date / Time No Known Allergies Allergy Verified 10/22/22 13:01 Home Meds Home Medications Medication Instructions Recorded Confirmed acetaminophen 325 mg tablet 650 mg PO Q4 PRN Fever Or Pain 06/15/22 10/22/22 (Tylenol) albuterol sulfate 90 mcg/actuation 2 puff inhalation Q4 PRN Shortness 06/15/22 10/22/22 aerosol inhaler Of Breath Or Wheezing allopurinol 300 mg tablet 300 mg PO DAILY 06/15/22 10/22/22 apixaban 5 mg tablet 5 mg PO Q12 06/15/22 10/22/22 aspirin 81 mg tablet,delayed 81 mg PO DAILY 06/15/22 10/22/22 release atorvastatin 10 mg tablet 10 mg PO DAILY 06/15/22 10/22/22 bupropion HCl 150 mg 24 hr tablet, 150 mg PO QAM 06/15/22 10/22/22 extended release cholecalciferol (vitamin D3) 25 50 mcg PO DAILY 06/15/22 10/22/22 mcg (1,000 unit) tablet (Vitamin D3) digoxin 125 mcg (0.125 mg) tablet 125 mcg PO DAILY 06/15/22 10/22/22 duloxetine 60 mg capsule,delayed 60 mg PO DAILY 06/15/22 10/22/22 release epinephrine 0.3 mg/0.3 mL 0.3 mg IM DIRECTED PRN Allergic 06/15/22 10/22/22 injection, auto-injector Reaction erythromycin 5 mg/gram (0.5 %) eye 1 applic OPB DIRECTED 06/15/22 10/22/22 ointment gabapentin 300 mg capsule 300 mg PO QID 06/15/22 10/22/22 levothyroxine 125 mcg tablet 250 mcg PO DAILY 06/15/22 10/22/22 lidocaine 5 % topical patch 1 patch topical DAILY 06/15/22 10/22/22 loratadine 10 mg tablet 20 mg PO DAILY PRN .allergies 06/15/22 10/22/22 magnesium oxide 420 mg tablet 420 mg PO DAILY 06/15/22 10/22/22 naphazoline 0.025 %-pheniramine 2 drp ophthalmic (eye) Q6 PRN Eye 06/15/22 10/22/22 0.3 % eye drops (Naphcon-A) Irritation nitroglycerin 0.4 mg sublingual 0.4 mg sublingual DIRECTED PRN 06/15/22 10/22/22 tablet (Nitrostat) Chest Pain nystatin 100,000 unit/gram topical 1 applic topical BID 06/15/22 10/22/22 powder omeprazole 20 mg capsule,delayed 20 mg PO DAILY 06/15/22 10/22/22 release polyvinyl alcohol-povidone (PF) 1 drp OPB QID 06/15/22 10/22/22 1.4 %-0.6 % eye drops in a dropperette (Refresh Classic (PF)) sennosides 8.6 mg tablet (senna) 8.6 mg PO BID 06/15/22 10/22/22 insulin regular human 100 unit/mL 1 sliding scale dose subcut 07/29/22 10/22/22 (3 mL) subcutaneous pen (Novolin R USEASDIRECTD FlexPen) insulin glargine 100 unit/mL 60 unit subcut BID 10/12/22 10/22/22 subcutaneous solution multivitamin with minerals 1 tab PO DAILY 10/12/22 10/22/22 spironolactone 25 mg tablet 25 mg PO DAILY 10/12/22 10/22/22 vit C 250 mg-vit E 90 mg-zinc 40 1 tab PO BID 10/12/22 10/22/22 mg-copper 1 [id number] capsule (PreserVision AREDS-2) Previous Rx's Medication Instructions Recorded metoprolol succinate 50 mg 100 mg PO BID #60 tabs 06/23/22 tablet,extended release 24 hr insulin regular human 100 unit/mL 14 unit (0.14 mL) subcut TIDM #10 08/01/22 injection solution (Novolin R mL Regular U-100 Insulin) potassium chloride 20 mEq 20 meq PO BID #60 tabs 08/01/22 tablet,extended release(part/cryst) furosemide 20 mg tablet 60 mg PO BID17 #90 tabs 08/25/22 cadexomer iodine 0.9 % topical gel 40 g topical DAILY 30 days #40 10/08/22 (Iodosorb) grams Results & Data (ED) Vital Signs Vital Signs - 24 hr 10/24/22 20:01 10/24/22 20:30 10/24/22 21:30 Temperature 37 C Temperature Source Oral Pulse Rate 84 75 84 Pulse Rate from SpO2 Sensor 85 Pulse Rhythm Regular Pulse Strength Normal Respiratory Rate 20 18 22 Respiratory Effort / Characteristics Non-Labored Spontaneous Respiratory Depth Normal Respiratory Pattern Regular Blood Pressure 138/82 154/80 H 143/87 H Blood Pressure Mean 100 104 105 Blood Pressure Position Sitting Pulse Oximetry 98 93 94 Oxygen Delivery Method Room Air Nasal Cannula Nasal Cannula Oxygen Flow Rate 6 6 Sepsis Recent Fever Within 48 Hours No Sepsis New/Unexplained Change in Mental Status N/A Sepsis Action Taken by Nursing No Action Required 10/24/22 22:00 10/24/22 22:02 10/24/22 22:31 Temperature Temperature Source Pulse Rate 79 84 88 Pulse Rate from SpO2 Sensor 87 88 Pulse Rhythm Pulse Strength Respiratory Rate 22 22 Respiratory Effort / Characteristics Respiratory Depth Respiratory Pattern Blood Pressure 113/86 151/87 H Blood Pressure Mean 95 108 Blood Pressure Position Pulse Oximetry 94 94 Oxygen Delivery Method Nasal Cannula Oxygen Flow Rate 6 Sepsis Recent Fever Within 48 Hours Sepsis New/Unexplained Change in Mental Status Sepsis Action Taken by Nursing 10/24/22 23:00 Temperature Temperature Source Pulse Rate 79 Pulse Rate from SpO2 Sensor 93 H Pulse Rhythm Pulse Strength Respiratory Rate 22 Respiratory Effort / Characteristics Respiratory Depth Respiratory Pattern Blood Pressure 161/76 H Blood Pressure Mean 104 Blood Pressure Position Pulse Oximetry 93 Oxygen Delivery Method Oxygen Flow Rate Sepsis Recent Fever Within 48 Hours Sepsis New/Unexplained Change in Mental Status Sepsis Action Taken by Nursing Laboratory Data 10/24/22 19:55 10/24/22 19:55 Lab Results 10/24/22 10/24/22 10/24/22 Range/Units 19:55 19:55 19:55 WBC 10.33 (4.8-10.8) K/ul RBC 4.65 L (4.70-6.10) M/uL Hgb 13.2 L (14.0-18.0) g/dl Hct 41.4 L (42.0-52.0) % MCV 89.0 (80.0-100.0) fL MCH 28.4 (25.0-34.0) pg MCHC 31.9 L (32.0-36.0) g/dL RDW Std Deviation 62.5 H (36.4-46.3) fL RDW Coeff of Baldo 19.8 H (11.5-14.5) % Plt Count 147 (130-400) K/uL MPV 12.0 (9.4-12.4) fL Immature Gran % (Auto) 0.9 % Neut % (Auto) 82.5 % Lymph % (Auto) 7.6 % [place] % (Auto) 8.0 % Eos % (Auto) 0.5 % Baso % (Auto) 0.5 % Neut # (Auto) 8.52 H (1.40-6.50) K/uL Lymph # (Auto) 0.79 L (1.2-3.4) K/uL [place] # (Auto) 0.83 H (0.11-0.59) K/uL Eos # (Auto) 0.05 (0-0.50) K/uL Baso # (Auto) 0.05 (0-0.2) K/uL Immature Gran # (Auto) 0.09 (0.01-0.20) K/uL Sodium 135 L (136-145) mmol/L Potassium 4.5 (3.5-5.1) mmol/L Chloride 98 (98-107) mmol/L Carbon Dioxide 29 (21-32) mmol/L Anion Gap 8 (3-11) BUN 25 H (6-23) mg/dl Creatinine 1.20 (0.6-1.4) mg/dl Est Cr Clr Drug Dosing 87.2 ml/min Est GFR ( Amer) 70.6 ml/min Est GFR (Non-Af Amer) 60.9 ml/min BUN/Creatinine Ratio 20.8 H (10-20) Glucose 335 H* (70-99(Fasting)) mg/dl Calcium 9.4 (8.6-10.3) mg/dl Total Bilirubin 1.6 H (0.2-1.0) mg/dl AST 30 (13-39) U/L ALT 32 (7-52) U/L Alkaline Phosphatase 93 (34-104) U/L Troponin I High Sens 18.5 (0-20) pg/ml Total Protein 6.6 (6.0-8.3) gm/dl Albumin 3.5 (3.4-5.0) gm/dl Globulin 3.1 (2.5-4.0) gm/dl Albumin/Globulin Ratio 1.1 (0.9-2) Urine Color Urine Appearance (Clear) Urine pH (4.5-7.5) Ur Specific Elfrida (1.000-1.030) Urine Protein (Negative) Urine Glucose (UA) (Negative) Urine Ketones (Negative) Urine Blood (Negative) Urine Nitrite (Negative) Urine Bilirubin (Negative) Urine Urobilinogen (Negative) Ur Leukocyte Esterase (Negative) Urine WBC (Auto) (0-5) /hpf Urine RBC (Auto) (0-4) /hpf U Hyaline Cast (Auto) (0-5) /lpf U Epithel Cells (Auto) (0-5) /lpf Urine Bacteria (Auto) (Negative) Digoxin 0.9 (0.8-2.0) ng/ml SARS-CoV-2, RNA, NAAT (NEGATIVE) 10/24/22 10/24/22 Range/Units 20:21 20:24 WBC (4.8-10.8) K/ul RBC (4.70-6.10) M/uL Hgb (14.0-18.0) g/dl Hct (42.0-52.0) % MCV (80.0-100.0) fL MCH (25.0-34.0) pg MCHC (32.0-36.0) g/dL RDW Std Deviation (36.4-46.3) fL RDW Coeff of Baldo (11.5-14.5) % Plt Count (130-400) K/uL MPV (9.4-12.4) fL Immature Gran % (Auto) % Neut % (Auto) % Lymph % (Auto) % [place] % (Auto) % Eos % (Auto) % Baso % (Auto) % Neut # (Auto) (1.40-6.50) K/uL Lymph # (Auto) (1.2-3.4) K/uL [place] # (Auto) (0.11-0.59) K/uL Eos # (Auto) (0-0.50) K/uL Baso # (Auto) (0-0.2) K/uL Immature Gran # (Auto) (0.01-0.20) K/uL Sodium (136-145) mmol/L Potassium (3.5-5.1) mmol/L Chloride (98-107) mmol/L Carbon Dioxide (21-32) mmol/L Anion Gap (3-11) BUN (6-23) mg/dl Creatinine (0.6-1.4) mg/dl Est Cr Clr Drug Dosing ml/min Est GFR ( Amer) ml/min Est GFR (Non-Af Amer) ml/min BUN/Creatinine Ratio (10-20) Glucose (70-99(Fasting)) mg/dl Calcium (8.6-10.3) mg/dl Total Bilirubin (0.2-1.0) mg/dl AST (13-39) U/L ALT (7-52) U/L Alkaline Phosphatase (34-104) U/L Troponin I High Sens (0-20) pg/ml Total Protein (6.0-8.3) gm/dl Albumin (3.4-5.0) gm/dl Globulin (2.5-4.0) gm/dl Albumin/Globulin Ratio (0.9-2) Urine Color Dark Yellow Urine Appearance Clear (Clear) Urine pH 6.5 (4.5-7.5) Ur Specific [place]fr[place] 1.019 (1.000-1.030) Urine Protein Negative (Negative) Urine Glucose (UA) 3+ H (Negative) Urine Ketones Negative (Negative) Urine Blood Negative (Negative) Urine Nitrite Negative (Negative) Urine Bilirubin Negative (Negative) Urine Urobilinogen Negative (Negative) Ur Leukocyte Esterase 1+ H (Negative) Urine WBC (Auto) 5-10 H (0-5) /hpf Urine RBC (Auto) 0-4 (0-4) /hpf U Hyaline Cast (Auto) 1-5 (0-5) /lpf U Epithel Cells (Auto) 5-10 H (0-5) /lpf Urine Bacteria (Auto) Negative (Negative) Digoxin (0.8-2.0) ng/ml SARS-CoV-2, RNA, NAAT NEGATIVE (NEGATIVE) Administered Medications Discontinued Medications Cefepime HCl (Maxipime) 2,000 mg in 20 mls @ 5 mls/min IV NOW STA; Protocol Stop: 10/24/22 21:45 Last Admin: 10/24/22 21:48 Dose: 5 mls/min Documented By: ARNIE Imaging Data Radiologist's Impression: Chest X-Ray 10/24/22 20:07 SINGLE VIEW CHEST CLINICAL HISTORY: Generalized weakness. FINDINGS: An AP, portable, upright chest radiograph is compared to study dated 08/22/2022. Correlation is made with chest CT dated 06/16/2022. A 2-lead cardiac pacemaker is unchanged in position. The the heart is enlarged. There is pulmonary vascular congestion. Atelectasis is noted at the lung bases. There is left basilar consolidation in the retrocardiac region. No pneumothorax is seen. The skeletal structures are osteopenic. There are chronic/healed right-sided rib fractures. IMPRESSION: 1. Cardiomegaly and cardiac pacemaker with pulmonary vascular congestion. 2. There is left basilar consolidation. Correlate clinically for evidence of pneumonia/aspiration pneumonitis. Radiographic follow-up to resolution is recommended. ACT 112: Negative or not required by law. Electronically signed by: Anupam Gonzalez M.D. 10/24/2022 10:09 PM Abdomen/Pelvis CT 10/24/22 20:12 Exam(s): CT ABDOMEN + PELVIS Without Contrast EXAM: CT Abdomen and Pelvis Without Intravenous Contrast CLINICAL HISTORY: Reason for exam: abd pain generalized. TECHNIQUE: Axial computed tomography images of the abdomen and pelvis without intravenous contrast. Automated exposure control was utilized for the study. A dose lowering technique was utilized adhering to the principles of ALARA. COMPARISON: 10/12/22 FINDINGS: There are partially imaged cardiac pacer leads. There is stable cardiomegaly. There is a consolidation in the left lower lobe compatible with pneumonia. Patient is status post cholecystectomy. Again seen is a small gallbladder remnant containing a few calcified stones. There is no biliary dilatation. Liver is enlarged but otherwise unremarkable. There is stable splenomegaly measuring 16.5 cm. Pancreas and adrenal glands are unremarkable. Kidneys are similar in size and contour, without hydronephrosis or radiopaque stones. There is mild aortoiliac atherosclerosis without aneurysm. There is no bowel obstruction or inflammation. Visualized portions of the appendix are normal. Prostate is small in size. Urinary bladder is normal. There are postoperative changes of the anterior abdominal wall. Mild anasarca is noted. There are no acute osseous findings. IMPRESSION: 1. Left lower lobe pneumonia. Imaging follow-up to resolution recommended. 2. No acute intra-abdominal process. Electronically signed by: Janey Madrid M.D. 10/24/22 23:34 PM Discharge Plan Visit Data Chief Complaint: Weakness ED Provider: Dandre Hinson Discharge Problem: Weakness Patient Disposition: Being Evaluated by Hospitalist Forms Stand Alone Forms: My [facility] Prescriptions Prescriptions: No Action Iodosorb 0.9 % gel 40 g topical DAILY 30 Days Qty: 40 1RF Rx Instructions: apply in 1/8 to 1/4 inch thickness; change when saturated with exudate; remove before next application. Apply daily to wounds of finger and toes. Novolin R FlexPen 100 unit/mL (3 mL) Insulin Pen 1 sliding scale dose SUBCUT USEASDIRECTD potassium chloride 20 mEq tablet,ER particles/crystals 20 meq PO BID Qty: 60 0RF Novolin R Regular U-100 Insuln 100 unit/mL solution 14 unit subcut TIDM Qty: 10 0RF insulin glargine 100 unit/mL Solution 60 unit SUBCUT BID spironolactone 25 mg tablet 25 mg PO DAILY PreserVision AREDS-2 250-90-40-1 mg Capsule 1 tab PO BID multivitamin with minerals Tablet 1 tab PO DAILY sennosides [senna] 8.6 mg Tablet 8.6 mg PO BID acetaminophen [Tylenol] 325 mg Tablet 650 mg PO Q4 PRN (Reason: Fever Or Pain) magnesium oxide 420 mg Tablet 420 mg PO DAILY aspirin 81 mg Tablet,Delayed Release (Dr/Ec) 81 mg PO DAILY erythromycin 5 mg/gram (0.5 %) ointment 1 applic OPB DIRECTED Rx Instructions: 1/2 inch ribbon to both lower eye lids. Frequency was not noted. levothyroxine 125 mcg Tablet 250 mcg PO DAILY lidocaine 5 % Adhesive Patch,Medicated 1 patch TOPICAL DAILY Rx Instructions: leave on most painful area for up to 12 hrs, then take off nitroglycerin [Nitrostat] 0.4 mg Tablet, Sublingual 0.4 mg sublingual DIRECTED PRN (Reason: Chest Pain) digoxin 125 mcg (0.125 mg) Tablet 125 mcg PO DAILY Rx Instructions: 1800 nystatin 100,000 unit/gram Powder 1 applic TOPICAL BID epinephrine 0.3 mg/0.3 mL Auto-Injector 0.3 mg IM DIRECTED PRN (Reason: Allergic Reaction) albuterol sulfate 90 mcg/actuation Hfa Aerosol Inhaler 2 puff INHALATION Q4 PRN (Reason: Shortness Of Breath Or Wheezing) Naphcon-A 0.025-0.3 % Drops 2 drp OPHTHALMIC (EYE) Q6 PRN (Reason: Eye Irritation) loratadine 10 mg Tablet 20 mg PO DAILY PRN (Reason: .allergies) Refresh Classic (PF) 1.4-0.6 % Dropperette 1 drp OPB QID duloxetine 60 mg capsule,delayed release(DR/EC) 60 mg PO DAILY cholecalciferol (vitamin D3) [Vitamin D3] 25 mcg (1,000 unit) Tablet 50 mcg PO DAILY apixaban 5 mg Tablet 5 mg PO Q12 atorvastatin 10 mg tablet 10 mg PO DAILY gabapentin 300 mg capsule 300 mg PO QID omeprazole 20 mg capsule,delayed release(DR/EC) 20 mg PO DAILY allopurinol 300 mg tablet 300 mg PO DAILY bupropion HCl 150 mg tablet extended release 24 hr 150 mg PO QAM metoprolol succinate 50 mg Tablet Extended Release 24 Hr 100 mg PO BID Qty: 60 0RF furosemide 20 mg Tablet 60 mg PO BID17 Qty: 90 0RF [facility] -
[2022-10-24 20:39] LABS: Basophils # (auto) 0.05 K/uL (0-0.2); Basophils % (auto) 0.5 %; Eosinophils # (auto) 0.05 K/uL (0-0.50); Eosinophils % (auto) 0.5 %; Hematocrit (blood only) 41.4 % (42.0-52.0); Hemoglobin 13.2 g/dl (14.0-18.0); Immature Granulocytes # (auto) 0.09 K/uL (0.01-0.20); Immature Granulocytes % (auto) 0.9 %; Lymphocytes # (auto) 0.79 K/uL (1.2-3.4); Lymphocytes % (auto) 7.6 %; Mean Corpuscular Hemoglobin 28.4 pg (25.0-34.0); Mean Corpuscular Hgb Conc 31.9 g/dL (32.0-36.0); Monocytes # (auto) 0.83 K/uL (0.11-0.59); Neutrophils # (auto) 8.52 K/uL (1.40-6.50); Neutrophils % (auto) 82.5 %; Platelet Count 147 K/uL (130-400); RDW Coefficient of Variation 19.8 % (11.5-14.5); RDW Standard Deviation 62.5 fL (36.4-46.3); Red Blood Count 4.65 M/uL (4.70-6.10); White Blood Count 10.33 K/ul (4.8-10.8)
[2022-10-24 20:53] LABS: Appearance Urine Clear (Clear); Bacteria Urine Automated Negative (Negative); Bilirubin Urine Negative (Negative); Blood Urine Negative (Negative); Color Urine Dark Yellow; Glucose Urine UA 3+ (Negative); Ketones Urine Negative (Negative); Leukocyte Esterase Urine 1+ (Negative); Nitrite Urine Negative (Negative); Protein Urine Negative (Negative); RBC Urine Automated 0-4 /hpf (0-4); Specific Gravity Urine 1.019 (1.000-1.030); Urobilinogen Urine Negative (Negative); pH Urine 6.5 (4.5-7.5)
[2022-10-24 21:04] LABS: Albumin Globulin Ratio 1.1 (0.9-2); Albumin Level 3.5 gm/dl (3.4-5.0); BUN Creatinine Ratio 20.8 (10-20); Bilirubin,Total 1.6 mg/dl (0.2-1.0); Calcium 9.4 mg/dl (8.6-10.3); Creatinine Clr Calc Pharmacy 87.2 ml/min; Est GFR (African American) 70.6 ml/min; Est GFR (Non-African American) 60.9 ml/min; Globulin 3.1 gm/dl (2.5-4.0); Potassium 4.5 mmol/L (3.5-5.1); Total Protein 6.6 gm/dl (6.0-8.3)
[2022-10-24 21:06] LABS: Troponin I High Sensitivity 18.5 pg/ml (0-20)
[2022-10-24] MEDS ORDERED: CEFEPIME 2,000 MG/20 ML VIAL IV STA (21:42)
--- NOTE | 2022-10-24 22:11 | XRay Report ---
SINGLE VIEW CHEST CLINICAL HISTORY: Generalized weakness. FINDINGS: An AP, portable, upright chest radiograph is compared to study dated 08/22/2022. Correlation is made with chest CT dated 06/16/2022. A 2-lead cardiac pacemaker is unchanged in position. The the heart is enlarged. There is pulmonary vascular congestion. Atelectasis is noted at the lung bases. Th ere is left basilar consolidation in the retrocardiac region. No pneumothorax is seen. The skeletal s tructures are osteopenic. There are chronic/healed right-sided rib fractures. IMPRESSION: 1. Cardiomegaly and cardiac pacemaker with pulmonary vascular congestion. 2. There is left basilar consolidation. Correlate clinically for evidence of pneumonia/aspiration pne umonitis. Radiographic follow-up to resolution is recommended. ACT 112: Negative or not required by law. Electronically signed by: Anupam Gonzalez M.D. 10/24/2022 10:09 PM
--- NOTE | 2022-10-24 23:34 | CT Scan Report ---
Exam(s): CT ABDOMEN + PELVIS Without Contrast EXAM: CT Abdomen and Pelvis Without Intravenous Contrast CLINICAL HISTORY: Reason for exam: abd pain generalized. TECHNIQUE: Axial computed tomography images of the abdomen and pelvis without intravenous contrast. Automated exposure control was utilized for the study. A dose lowering technique was utilized adhering to the principles of ALARA. COMPARISON: 10/12/22 FINDINGS: There are partially imaged cardiac pacer leads. There is stable cardiomegaly. There is a consolidation in the left lower lobe compatible with pneumonia. Patient is status post cholecystectomy. Again seen is a small gallbladder remnant containing a few calcified stones. There is no biliary dilatation. Liver is enlarged but otherwise unremarkable. There is stable splenomegaly measuring 16.5 cm. Pancreas and adrenal glands are unremarkable. Kidneys are similar in size and contour, without hydronephrosis or radiopaque stones. There is mild aortoiliac atherosclerosis without aneurysm. There is no bowel obstruction or inflammation. Visualized portions of the appendix are normal. Prostate is small in size. Urinary bladder is normal. There are postoperative changes of the anterior abdominal wall. Mild anasarca is noted. There are no acute osseous findings. IMPRESSION: 1. Left lower lobe pneumonia. Imaging follow-up to resolution recommended. 2. No acute intra-abdominal process. Electronically signed by: Janey Madrid M.D. 10/24/22 23:34 PM
[2022-10-25] MEDS ORDERED: NITROGLYCERIN SL 0.4 MG/TAB TAB SL PRN (04:08)
[2022-10-25] MEDS ORDERED: PHARMACY GLYCEMIC MGMT CONSULT PRN (04:08)
[2022-10-25] MEDS ORDERED: GLUCOSE 40% GEL 15 GM TUBE PO PRN (04:08)
[2022-10-25] MEDS ORDERED: DEXTROSE 50% 50 ML SYRINGE IV PRN (04:08)
[2022-10-25] MEDS ORDERED: POLYETHYLENE (MIRALAX) 17 GM PACK PO PRN (04:08)
[2022-10-25] MEDS ORDERED: CARBOHYDRATES FOR HYPOGLYCEMIA PO PRN (04:08)
[2022-10-25] MEDS ORDERED: ALBUTEROL HFA 8 GM INHALER INH PRN (04:08)
[2022-10-25] MEDS ORDERED: GLUCOSE 10 TAB/TUBE PO PRN (04:08)
[2022-10-25] MEDS ORDERED: GLUCAGON FOR INJ 1 MG VIAL SQ PRN (04:08)
[2022-10-25] MEDS ORDERED: NAPHAZOLIN/PHENIRAMIN OPH SOLN 75 DROPS/5 ML BTL OP PRN (04:08)
[2022-10-25] MEDS ORDERED: LORATADINE 10 MG TAB PO PRN (04:08)
[2022-10-25] MEDS ORDERED: LANTUS PER UNIT CHARGE SQ SCH (04:45)
[2022-10-25] MEDS: INSULIN ASPART PER UNIT CHARGE SC SCH ×5 (05:20→21:36)
[2022-10-25] MEDS: DOXYCYCLINE HYCLATE 100 MG in DEXTROSE 5% 100 ML IV SCH ×2 (05:52→17:59)
[2022-10-25] MEDS: LEVOTHYROXINE SODIUM 125 MCG TABLET PO SCH (05:52)
[2022-10-25 06:30] LABS: Basophils # (auto) 0.04 K/uL (0-0.2); Basophils % (auto) 0.4 %; Eosinophils # (auto) 0.06 K/uL (0-0.50); Eosinophils % (auto) 0.7 %; Hematocrit (blood only) 37.5 % (42.0-52.0); Hemoglobin 12.1 g/dl (14.0-18.0); Immature Granulocytes # (auto) 0.07 K/uL (0.01-0.20); Immature Granulocytes % (auto) 0.8 %; Lymphocytes # (auto) 1.25 K/uL (1.2-3.4); Lymphocytes % (auto) 13.7 %; Mean Corpuscular Hemoglobin 28.1 pg (25.0-34.0); Mean Corpuscular Hgb Conc 32.3 g/dL (32.0-36.0); Mean Platelet Volume 11.9 fL (9.4-12.4); Monocytes # (auto) 0.82 K/uL (0.11-0.59); Neutrophils # (auto) 6.87 K/uL (1.40-6.50); Neutrophils % (auto) 75.4 %; Platelet Count 125 K/uL (130-400); RDW Coefficient of Variation 19.3 % (11.5-14.5); Red Blood Count 4.31 M/uL (4.70-6.10); White Blood Count 9.11 K/ul (4.8-10.8)
[2022-10-25 06:32] LABS: BUN Creatinine Ratio 20.8 (10-20); Calcium 9.1 mg/dl (8.6-10.3); Creatinine Clr Calc Pharmacy 97.4 ml/min; Est GFR (Non-African American) 70.8 ml/min; Magnesium 2.1 mg/dl (1.7-2.4); Potassium 4.2 mmol/L (3.5-5.1)
--- NOTE | 2022-10-25 07:38 | Electrocardiogram Report ---
Test Reason : Blood Pressure : / mmHG Vent. Rate : 091 BPM Atrial Rate : 091 BPM P-R Int : 144 ms QRS Dur : 182 ms QT Int : 426 ms P-R-T Axes : 025 -67 103 degrees QTc Int : 523 ms Ventricular-paced rhythm Abnormal ECG When compared with ECG of 15-OCT-2022 10:35, Vent. rate has decreased BY 6 BPM Confirmed by Luis Jones ([id number]) on 10/25/2022 7:38:40 AM Referred By: [facility] Confirmed By:Todd Jones
[2022-10-25] MEDS: PANTOprazole 40 MG TAB PO SCH (08:25)
[2022-10-25] MEDS: GABAPENTIN 300 MG CAP PO SCH ×4 (08:25→20:15)
[2022-10-25] MEDS: SPIRONOLACTONE 25 MG TAB PO SCH (08:25)
[2022-10-25] MEDS: CHOLECALCIFEROL 1,000 UNITS 25 MCG TAB PO SCH (08:25)
[2022-10-25] MEDS: ASPIRIN 81 MG ECTAB PO SCH (08:25)
[2022-10-25] MEDS: METOPROLOL SUCC 50MG EXT REL TAB PO SCH ×2 (08:26→20:15)
[2022-10-25] MEDS: APIXABAN 5 MG TABLET PO SCH ×2 (08:26→20:16)
[2022-10-25] MEDS: FUROSEMIDE 80 MG TAB PO SCH ×2 (08:26→17:55)
[2022-10-25] MEDS: MAGNESIUM OXIDE 400 MG TAB PO SCH (08:26)
[2022-10-25] MEDS: buPROPion XL 150 MG TABCR PO SCH (08:26)
[2022-10-25] MEDS: POTASSIUM CHLORIDE CRTAB 20 MEQ TABCR PO SCH ×2 (08:26→20:14)
[2022-10-25] MEDS: CEROVITE ADV FORMULA TAB PO SCH (08:27)
[2022-10-25] MEDS: LIDOCAINE 5% 1 PATCH TD SCH (08:27)
[2022-10-25] MEDS: allopurinoL 300 MG TAB PO SCH (08:27)
[2022-10-25] MEDS: SENNA 8.6 MG TAB PO SCH ×2 (08:27→20:14)
[2022-10-25] MEDS: DULoxetine HCL 60 MG CAP PO SCH (08:27)
[2022-10-25] MEDS: NYSTATIN/TRIAMCIN OINT 15 GM TUBE EXT SCH ×2 (08:27→20:16)
[2022-10-25] MEDS: PIPERACILLIN/TAZOBACTAM 3.375 GM in DEXTROSE 5% 100 ML IV SCH ×2 (08:28→16:16)
[2022-10-25] MEDS: ARTIFICIAL TEARS OP SCH ×4 (08:28→20:16)
[2022-10-25] MEDS ORDERED: NON-FORMULARY MEDICATION (Vit C,E-Zn-Coppr-Lutein-Zeaxan [Preservision Areds-2] 250-90-40- PO SCH (09:00)
[2022-10-25 09:38] LABS: Estimated Average Glucose 263 mg/dl; Hemoglobin A1C 10.8 % (4.5-5.6)
--- NOTE | 2022-10-25 11:26 | History and Physical Report ---
DATE OF ADMISSION: 10/25/2022. CHIEF COMPLAINT: Abdominal pain, weakness, rash in the trunk. HISTORY OF PRESENT ILLNESS: A 72-year-old male with past medical history significant for type 2 diabetes, chronic kidney disease stage III, acquired autoimmune hypothyroidism, hyperlipidemia, diabetic retinopathy, peripheral neuropathy, COPD, sleep apnea, uses oxygen in the nighttime, chronic combined systolic and diastolic CHF, pulmonary hypertension, chronic right sided heart failure, abdominal aortic atherosclerosis, paroxysmal atrial fibrillation, status post cardiac pacemaker, tachybrady syndrome, morbid obesity, GERD, gout, osteoarthritis, carpal tunnel syndrome, history of cellulitis of the finger, psoriasis, moderate episode of recurrent major depressive disorder, history of pulmonary embolism, MRSA colonization, tremor, posttraumatic stress disorder, recurrent falls, history of COVID-19. The patient lives at [facility], presents with weakness, rash on his abdomen, some abdominal pain and found to have pneumonia on the imaging studies. Resting comfortably, hemodynamically stable. He has a rash developed on his abdomen and back about a month ago, seems to have some itching, some tenderness. Denies any nausea or vomiting. No fevers, no cough, no chest pain, no shortness of breath, no headache, no blurred visions, no earache, no runny nose, no sore throat. Appetite is okay. No diarrhea or constipation. No blood in stool or black stools. Normal micturition. Hemodynamically stable. ALLERGIES: No known drug allergies. PAST MEDICAL HISTORY: As mentioned above. PAST SURGICAL HISTORY: Bronchoscopy, right carpal tunnel surgery, colonoscopy, cystoscopy, electrophysiology evaluation and ablation of SVT, lithotripsy, knee arthroscopy, laparoscopic cholecystectomy, suture repair of entropion, thoracoscopy and surgical pleurodesis, umbilical hernia repair. MEDICATIONS: The patient is on Tylenol 650 mg p.o. every 4 hours p.r.n., albuterol 2 puffs inhalation every 4 hours p.r.n., allopurinol 300 mg p.o. daily, Eliquis 5 mg p.o. b.i.d., aspirin 81 mg p.o. daily, atorvastatin 10 mg p.o. daily, bupropion 150 mg p.o. a.m., vitamin D 50 mcg p.o. daily, digoxin 125 mcg p.o. daily, duloxetine 60 mg p.o. daily, epinephrine 0.3 mg IM p.r.n., erythromycin 1 application ophthalmic at bedtime, furosemide 80 mg p.o. b.i.d., gabapentin 300 mg p.o. q.i.d., insulin glargine 60 units subcutaneous b.i.d., levothyroxine 250 mcg p.o. daily, lidocaine patch daily, loratadine 20 mg p.o. daily p.r.n., magnesium oxide 420 mg p.o. daily, metoprolol succinate 100 mg p.o. b.i.d., Multivitamin With Minerals 1 tablet p.o. daily, Naphcon 2 drops ophthalmic p.r.n. for eye irritation, Nitrostat 0.4 mg sublingual p.r.n., Novolin R sliding scale, Novolin R 14 units subcutaneous t.i.d. with meals, nystatin topical b.i.d., omeprazole 20 mg p.o. daily, potassium chloride 20 mEq p.o. b.i.d., Refresh Classic one drop q.i.d., Senna 8.6 mg p.o. b.i.d., spironolactone 25 mg p.o. daily, PreserVision AREDS 2 one tablet p.o. b.i.d. FAMILY HISTORY: Significant for mother had cancer. SOCIAL HISTORY: Currently living at [facility]. No smoking, no alcohol, no drug use. REVIEW OF SYSTEMS: As per HPI. Rest of the review of systems is negative. PHYSICAL EXAMINATION: GENERAL: The patient is morbidly obese, not in acute distress. VITAL SIGNS: Temperature 37, pulse 105, respiratory rate 24, blood pressure 126/65, oxygen 92% on oxygen nasal cannula. HEENT: Pupils equal, round and reactive to light. Oral mucosa moist. NECK: No JVD, no neck masses. CARDIOVASCULAR: S1 and S2 heard. Regular rate and rhythm. No murmur, no gallop. RESPIRATORY SYSTEM: Normal AP diameter. No accessory muscle use. No wheezing, no crackles. ABDOMEN: Soft, bowel sounds present. Mild tenderness. No guarding. No rigidity. No distention. CENTRAL NERVOUS SYSTEM: Alert and oriented. Speech is clear. No facial droop. Obeys simple commands. Moves extremities. EXTREMITIES: Bilateral lower extremity gross edema seen. SKIN: Erythematous macular rash seen on the abdomen in patches and also on the lower back. LABORATORY DATA: WBC 10, hemoglobin 13.2, hematocrit 41.4, platelets 147. Sodium 135, potassium 4.5, chloride 98, bicarbonate 29, BUN 25, creatinine 1.2, serum glucose 335, calcium 9.4, total bilirubin 1.6, AST 30, ALT 32, alkaline phosphatase 90. Troponin I high sensitivity 18. Urinalysis, +1 leukocyte esterase, urine bacteria negative. Digoxin 0.9. SARS-CoV-2 rapid test negative. IMAGING DATA: CT abdomen and pelvis without contrast, left lower lobe pneumonia. No acute intraabdominal process. Chest x-ray, left basilar consolidation, cardiomegaly and cardiac pacemaker with pulmonary vascular congestion. ASSESSMENT AND PLAN: This is a 72-year-old male who comes from [facility] with weakness, rash on abdomen and found to have possible pneumonia. 1. Possible pneumonia, left lower lobe possible cause of of weakness. Empirically started on Zosyn and doxycycline. Follow the response. Speech consult for possible aspiration. Monitor in the hospital. 2. Erythematous macular rash large patches on abdomen and back fungal versus bacterial infection versus inflammatory condition. Hx of psoriasis? We will empirically place him on nystain/ triamcinolone cream. Antibiotics as above. Dermatology consult. Follow further response. Can consider Diflucan if Qt normalizes. 3. Prolonged QTc To avoid Qt prolonging drugs . Follow repeat EKG. 4. History of diabetes: Continue his home Lantus. ISS, Will momnitor the blood sugars, follow HbA1c levels. 5. History of chronic systolic and diastolic congestive heart failure: Continue home Lasix, spironolactone and potassium supplements. Monitor for any volume overload. Echo done in 08/2022 shows ejection fraction of 50%. 6. Obstructive sleep apnea, uses oxygen at nighttime. 7. Hypertension, on metoprolol succinate, diuretics. We will monitor blood pressure. 8. History of hypothyroidism, on Synthroid. 9. History of atrial fibrillation, tachybrady syndrome, status post pacemaker. Digoxin, metoprolol and Eliquis. 10. History of pulmonary embolism, on Eliquis. 11. history of gout, on allopurinol. 12. History of depression with posttraumatic stress disorder, on duloxetine and bupropion. 13. Chronic diabetic neuropathy, on gabapentin. 14. History of Giant cell arteritis, was on prednisone, currently stopped. 15. History of onychomycosis, was on terbinafine. Follow up with Dermatology. 16. History of right leg wound ulcer, seems to be healing well as per the outpatient wound visit notes. Will consider consult wound care in the hospital. 17. Morbid obesity, needs counseling. 18. Chronic obstructive pulmonary disease, currently stable. 19. Abdominal Pain. Etioloy ? CT abd/pevis ok.Will momnitor. 20. Deep venous thrombosis prophylaxis, on Eliquis. DISPOSITION: Closely monitor in the med tele. PT/OT prior to discharge. Social service to help with discharge planning. Job ID: [id number] [facility] HOSPITALMarito
--- NOTE | 2022-10-25 12:07 | Electrocardiogram Report ---
Test Reason : Blood Pressure : / mmHG Vent. Rate : 107 BPM Atrial Rate : 076 BPM P-R Int : 000 ms QRS Dur : 154 ms QT Int : 392 ms P-R-T Axes : 000 -73 082 degrees QTc Int : 523 ms Atrial fibrillation with rapid ventricular response Right bundle branch block Left anterior fascicular block Bifascicular block Cannot rule out Inferior infarct (masked by fascicular block?) , age undetermined Abnormal ECG When compared with ECG of 24-OCT-2022 19:57, Atrial fibrillation has replaced Electronic ventricular pacemaker Confirmed by Luis Jones ([id number]) on 10/25/2022 12:06:53 PM Referred By: [facility] Confirmed By:Todd Jones
[2022-10-25] MEDS: guaiFENesin 600 MG TABCR PO SCH ×2 (16:15→20:15)
[2022-10-25] MEDS: DIGOXIN 0.125 MG TAB PO SCH (16:15)
[2022-10-25] MEDS: ERYTHROMYCIN OP OINT 5 MG/GM 3.5 GM TUBE OPB SCH (20:16)
[2022-10-25] MEDS: ATORVASTATIN 10 MG TAB PO SCH (20:16)
[2022-10-25] MEDS: LANTUS PER UNIT CHARGE SQ SCH (21:36)
[2022-10-26] MEDS: PIPERACILLIN/TAZOBACTAM 3.375 GM in DEXTROSE 5% 100 ML IV SCH ×3 (00:14→14:50)
[2022-10-26] MEDS: DOXYCYCLINE HYCLATE 100 MG in DEXTROSE 5% 100 ML IV SCH ×2 (06:13→18:23)
[2022-10-26] MEDS: LEVOTHYROXINE SODIUM 125 MCG TABLET PO SCH (06:14)
[2022-10-26 06:18] LABS: Basophils # (auto) 0.05 K/uL (0-0.2); Basophils % (auto) 0.6 %; Eosinophils # (auto) 0.11 K/uL (0-0.50); Eosinophils % (auto) 1.3 %; Hematocrit (blood only) 38.6 % (42.0-52.0); Hemoglobin 12.3 g/dl (14.0-18.0); Immature Granulocytes # (auto) 0.08 K/uL (0.01-0.20); Lymphocytes # (auto) 0.74 K/uL (1.2-3.4); Lymphocytes % (auto) 8.9 %; Mean Corpuscular Hemoglobin 27.9 pg (25.0-34.0); Mean Corpuscular Hgb Conc 31.9 g/dL (32.0-36.0); Mean Corpuscular Volume 87.5 fL (80.0-100.0); Mean Platelet Volume 11.6 fL (9.4-12.4); Monocytes # (auto) 0.73 K/uL (0.11-0.59); Monocytes % (auto) 8.7 %; Neutrophils # (auto) 6.65 K/uL (1.40-6.50); Neutrophils % (auto) 79.5 %; Platelet Count 147 K/uL (130-400); RDW Coefficient of Variation 19.4 % (11.5-14.5); RDW Standard Deviation 61.5 fL (36.4-46.3); Red Blood Count 4.41 M/uL (4.70-6.10); White Blood Count 8.36 K/ul (4.8-10.8)
[2022-10-26 06:31] LABS: Albumin Globulin Ratio 1.1 (0.9-2); Albumin Level 3.1 gm/dl (3.4-5.0); BUN Creatinine Ratio 17.4 (10-20); Bilirubin,Total 2.4 mg/dl (0.2-1.0); Calcium 9.1 mg/dl (8.6-10.3); Creatinine Clr Calc Pharmacy 92.2 ml/min; Est GFR (African American) 79.3 ml/min; Est GFR (Non-African American) 68.4 ml/min; Globulin 2.8 gm/dl (2.5-4.0); Magnesium 1.8 mg/dl (1.7-2.4); Phosphorus 2.7 mg/dl (2.5-4.9); Total Protein 5.9 gm/dl (6.0-8.3)
[2022-10-26] MEDS: LIDOCAINE 5% 1 PATCH TD SCH (08:31)
[2022-10-26] MEDS: METOPROLOL SUCC 50MG EXT REL TAB PO SCH ×2 (08:31→20:45)
[2022-10-26] MEDS: SENNA 8.6 MG TAB PO SCH ×2 (08:31→20:44)
[2022-10-26] MEDS: POTASSIUM CHLORIDE CRTAB 20 MEQ TABCR PO SCH ×2 (08:31→21:54)
[2022-10-26] MEDS: APIXABAN 5 MG TABLET PO SCH ×2 (08:31→20:46)
[2022-10-26] MEDS: guaiFENesin 600 MG TABCR PO SCH ×2 (08:31→20:45)
[2022-10-26] MEDS: GABAPENTIN 300 MG CAP PO SCH ×4 (08:31→20:45)
[2022-10-26] MEDS: MAGNESIUM OXIDE 400 MG TAB PO SCH (08:32)
[2022-10-26] MEDS: CEROVITE ADV FORMULA TAB PO SCH (08:32)
[2022-10-26] MEDS: allopurinoL 300 MG TAB PO SCH (08:32)
[2022-10-26] MEDS: ARTIFICIAL TEARS OP SCH ×4 (08:32→20:46)
[2022-10-26] MEDS: CHOLECALCIFEROL 1,000 UNITS 25 MCG TAB PO SCH (08:32)
[2022-10-26] MEDS: NYSTATIN/TRIAMCIN OINT 15 GM TUBE EXT SCH ×2 (08:32→20:46)
[2022-10-26] MEDS: FUROSEMIDE 80 MG TAB PO SCH ×2 (08:32→16:52)
[2022-10-26] MEDS: buPROPion XL 150 MG TABCR PO SCH (08:32)
[2022-10-26] MEDS: ASPIRIN 81 MG ECTAB PO SCH (08:32)
[2022-10-26] MEDS: SPIRONOLACTONE 25 MG TAB PO SCH (08:32)
[2022-10-26] MEDS: DULoxetine HCL 60 MG CAP PO SCH (08:32)
[2022-10-26] MEDS: PANTOprazole 40 MG TAB PO SCH (08:32)
[2022-10-26] MEDS: INSULIN ASPART PER UNIT CHARGE SC SCH ×4 (08:35→20:47)
[2022-10-26] MEDS ORDERED: LANTUS PER UNIT CHARGE SQ SCH (09:00)
--- NOTE | 2022-10-26 09:18 | Hospitalist Progress Note ---
Date of Service October 26, 2022 Assessment & Plan (1) Weakness: Plan: This is a 72-year-old male who comes from [facility] with weakness, rash on abdomen and found to have possible pneumonia. 1. Possible pneumonia, left lower lobe possible cause of of weakness. Empirically started on Zosyn and doxycycline. Follow the response. Speech consult for possible aspiration. Guaifenesin, flutter valve, spirometer Overall feels improved but still on suppl. O2 Monitor in the hospital. 2. Erythematous macular rash large patches on abdomen and back. fungal versus bacterial infection versus inflammatory condition. Hx of psoria sis? W e will empirically place him on nystain/ triamcinolone cream. Antibiotics as above. Dermatology consult - likely will see as outpt. Follow further response. Can consider Diflucan if Qt normalizes. 3. Prolonged QTc To avoid Qt prolonging drugs . Follow repeat EKG. 4. History of diabetes: Continue his home Lantus. ISS, Will momnitor the blood sugars, current HbA1c 10.8% - uncontrolled 5. Chronic systolic and diastolic congestive heart failure: Continue home Lasix, spironolactone and potassium supplements. Monitor for any volume overload. Echo done in 08/2022 shows ejection fraction of 50%. 6. Obstructive sleep apnea, uses oxygen at nighttime. 7. Hypertension, on metoprolol succinate, diuretics. We will monitor blood pressure. 8. Hypothyroidism, on Synthroid. 9. Atrial fibrillation, tachybrady syndrome, status post pacemaker. Digoxin, metoprolol and Eliquis. 10. History of pulmonary embolism, on Eliquis. 11. Gout, on allopurinol. 12. Depression with posttraumatic stress disorder, on duloxetine and bupropion. 13. Chronic diabetic neuropathy, on gabapentin. 14. History of Giant cell arteritis, was on prednisone, currently stopped. 15. History of onychomycosis, was on terbinafine. Follow up with Dermatology. 16. History of right leg wound ulcer, seems to be healing well as per the outpatient wound visit notes. Will consider consult wound care in the hospital. 17. Morbid obesity, needs counseling. 18. Chronic obstructive pulmonary disease, currently stable. 19. Abdominal Pain. Now improved. Eating ok, having BMs. Etioloy ? CT abd/pevis w/o any acute findings. Will monitor. DVT prophylaxis, on Eliquis. DISPOSITION: med tele. PT/OT prior to discharge. Social service to help with discharge planning. Admission and Anticipated Discharge Date Admission Date: October 25, 2022 Subjective Pt seen in follow up of weakness, LLL pna, hypoxia Currently sitting up in a chair, in no acute distress More alert, also reports feeling better since he came to the hospital No fevers chills, has some cough with grayish sputum No chest pain, no abdominal pain, no nausea vomiting, no constipation or diarrhea Review of Systems Review of Systems: All systems reviewed & are unremarkable except as noted in Subjective Physical Exam Physical Exam: GENERAL: The patient is morbidly obese, not in acute distress. HEENT: Pupils equal, round and reactive to light. Oral mucosa moist. NECK: No JVD, no neck masses. CARDIOVASCULAR: S1 and S2 heard. Regular rate and rhythm. No murmur, no gallop. RESPIRATORY: Normal AP diameter. No accessory muscle use. No wheezing, no crackles. ABDOMEN: Soft, bowel sounds present. Mild tenderness. Obese, No guarding. No rigidity. NEURO: Alert and oriented. Speech is clear. No facial droop. Obeys simple commands. Moves extremities. EXTREMITIES: Bilateral lower extremity gross edema seen. SKIN: Erythematous rash seen on the abdomen in patches and also on the lower back. Results & Data Results & Data Vital Signs (Past 12 Hours) Vital Signs Temp Pulse Pulse Resp BP BP Pulse Ox 10/26/22 07:34 36.8 C 87 20 126/82 96 10/26/22 07:25 102 H 10/26/22 03:10 36.8 C 99 H 18 122/80 94 10/26/22 01:38 100 H 10/25/22 23:13 36.9 C 89 16 133/76 96 O2 Del Method O2 Flow Rate 10/26/22 07:34 Nasal Cannula 3 10/26/22 07:25 10/26/22 03:10 Nasal Cannula 2 10/26/22 01:38 10/25/22 23:13 Nasal Cannula 2 Laboratory Results 10/26/22 10/26/22 10/26/22 Range/Units 07:22 05:30 05:30 WBC (4.8-10.8) K/ul RBC (4.70-6.10) M/uL Hgb (14.0-18.0) g/dl Hct (42.0-52.0) % MCV (80.0-100.0) fL MCH (25.0-34.0) pg MCHC (32.0-36.0) g/dL RDW Std Deviation (36.4-46.3) fL RDW Coeff of Baldo (11.5-14.5) % Plt Count (130-400) K/uL MPV (9.4-12.4) fL Immature Gran % (Auto) % Neut % (Auto) % Lymph % (Auto) % Mchenry % (Auto) % Eos % (Auto) % Baso % (Auto) % Neut # (Auto) (1.40-6.50) K/uL Lymph # (Auto) (1.2-3.4) K/uL Mchenry # (Auto) (0.11-0.59) K/uL Eos # (Auto) (0-0.50) K/uL Baso # (Auto) (0-0.2) K/uL Immature Gran # (Auto) (0.01-0.20) K/uL Sodium 137 (136-145) mmol/L Potassium 4.0 (3.5-5.1) mmol/L Chloride 97 L (98-107) mmol/L Carbon Dioxide 34 H (21-32) mmol/L Anion Gap 6 (3-11) BUN 19 (6-23) mg/dl Creatinine 1.09 (0.6-1.4) mg/dl Est Cr Clr Drug Dosing 92.2 ml/min Est GFR ( Amer) 79.3 ml/min Est GFR (Non-Af Amer) 68.4 ml/min BUN/Creatinine Ratio 17.4 (10-20) Glucose 255 H (70-99(Fasting)) mg/dl POC Glucose 226 H (70-99) mg/dl Estimat Average Glucose mg/dl Hemoglobin A1c (4.5-5.6) % Calcium 9.1 (8.6-10.3) mg/dl Phosphorus 2.7 (2.5-4.9) mg/dl Magnesium 1.8 (1.7-2.4) mg/dl Total Bilirubin 2.4 H (0.2-1.0) mg/dl AST 22 (13-39) U/L ALT 24 (7-52) U/L Alkaline Phosphatase 80 (34-104) U/L Total Protein 5.9 L (6.0-8.3) gm/dl Albumin 3.1 L (3.4-5.0) gm/dl Globulin 2.8 (2.5-4.0) gm/dl Albumin/Globulin Ratio 1.1 (0.9-2) Procalcitonin 0.06 (0-0.5) ng/ml 10/26/22 10/25/22 10/25/22 Range/Units 05:30 20:40 16:23 WBC 8.36 (4.8-10.8) K/ul RBC 4.41 L (4.70-6.10) M/uL Hgb 12.3 L (14.0-18.0) g/dl Hct 38.6 L (42.0-52.0) % MCV 87.5 (80.0-100.0) fL MCH 27.9 (25.0-34.0) pg MCHC 31.9 L (32.0-36.0) g/dL RDW Std Deviation 61.5 H (36.4-46.3) fL RDW Coeff of Baldo 19.4 H (11.5-14.5) % Plt Count 147 (130-400) K/uL MPV 11.6 (9.4-12.4) fL Immature Gran % (Auto) 1.0 % Neut % (Auto) 79.5 % Lymph % (Auto) 8.9 % Mchenry % (Auto) 8.7 % Eos % (Auto) 1.3 % Baso % (Auto) 0.6 % Neut # (Auto) 6.65 H (1.40-6.50) K/uL Lymph # (Auto) 0.74 L (1.2-3.4) K/uL Mchenry # (Auto) 0.73 H (0.11-0.59) K/uL Eos # (Auto) 0.11 (0-0.50) K/uL Baso # (Auto) 0.05 (0-0.2) K/uL Immature Gran # (Auto) 0.08 (0.01-0.20) K/uL Sodium (136-145) mmol/L Potassium (3.5-5.1) mmol/L Chloride (98-107) mmol/L Carbon Dioxide (21-32) mmol/L Anion Gap (3-11) BUN (6-23) mg/dl Creatinine (0.6-1.4) mg/dl Est Cr Clr Drug Dosing ml/min Est GFR ( Amer) ml/min Est GFR (Non-Af Amer) ml/min BUN/Creatinine Ratio (10-20) Glucose (70-99(Fasting)) mg/dl POC Glucose 207 H 246 H (70-99) mg/dl Estimat Average Glucose mg/dl Hemoglobin A1c (4.5-5.6) % Calcium (8.6-10.3) mg/dl Phosphorus (2.5-4.9) mg/dl Magnesium (1.7-2.4) mg/dl Total Bilirubin (0.2-1.0) mg/dl AST (13-39) U/L ALT (7-52) U/L Alkaline Phosphatase (34-104) U/L Total Protein (6.0-8.3) gm/dl Albumin (3.4-5.0) gm/dl Globulin (2.5-4.0) gm/dl Albumin/Globulin Ratio (0.9-2) Procalcitonin (0-0.5) ng/ml 10/25/22 10/25/22 Range/Units 11:36 05:34 WBC (4.8-10.8) K/ul RBC (4.70-6.10) M/uL Hgb (14.0-18.0) g/dl Hct (42.0-52.0) % MCV (80.0-100.0) fL MCH (25.0-34.0) pg MCHC (32.0-36.0) g/dL RDW Std Deviation (36.4-46.3) fL RDW Coeff of Baldo (11.5-14.5) % Plt Count (130-400) K/uL MPV (9.4-12.4) fL Immature Gran % (Auto) % Neut % (Auto) % Lymph % (Auto) % Mchenry % (Auto) % Eos % (Auto) % Baso % (Auto) % Neut # (Auto) (1.40-6.50) K/uL Lymph # (Auto) (1.2-3.4) K/uL Mchenry # (Auto) (0.11-0.59) K/uL Eos # (Auto) (0-0.50) K/uL Baso # (Auto) (0-0.2) K/uL Immature Gran # (Auto) (0.01-0.20) K/uL Sodium (136-145) mmol/L Potassium (3.5-5.1) mmol/L Chloride (98-107) mmol/L Carbon Dioxide (21-32) mmol/L Anion Gap (3-11) BUN (6-23) mg/dl Creatinine (0.6-1.4) mg/dl Est Cr Clr Drug Dosing ml/min Est GFR ( Amer) ml/min Est GFR (Non-Af Amer) ml/min BUN/Creatinine Ratio (10-20) Glucose (70-99(Fasting)) mg/dl POC Glucose 198 H (70-99) mg/dl Estimat Average Glucose 263 mg/dl Hemoglobin A1c 10.8 H (4.5-5.6) % Calcium (8.6-10.3) mg/dl Phosphorus (2.5-4.9) mg/dl Magnesium (1.7-2.4) mg/dl Total Bilirubin (0.2-1.0) mg/dl AST (13-39) U/L ALT (7-52) U/L Alkaline Phosphatase (34-104) U/L Total Protein (6.0-8.3) gm/dl Albumin (3.4-5.0) gm/dl Globulin (2.5-4.0) gm/dl Albumin/Globulin Ratio (0.9-2) Procalcitonin (0-0.5) ng/ml Medications Administered Current Inpatient Medications Acetaminophen (Acetaminophen 325 Mg Tab) 650 mg PO Q4H PRN PRN Reason: Pain or Fever Stop: 11/24/22 04:07 Albuterol (Albuterol Hfa 8 Gm Inhaler) 2 puffs INH Q4 PRN PRN Reason: Shortness Of Breath Or Wheezin Stop: 11/24/22 04:07 Allopurinol (Allopurinol 300 Mg Tab) 300 mg PO DAILY OFE Stop: 11/24/22 08:59 Last Admin: 10/26/22 08:32 Dose: 300 mg Apixaban (Apixaban 5 Mg Tablet) 5 mg PO Q12 OFE Stop: 11/24/22 08:59 Last Admin: 10/26/22 08:31 Dose: 5 mg Artificial Tears (Artificial Tears) 1 drops OP QID OFE Stop: 11/24/22 08:59 Last Admin: 10/26/22 08:32 Dose: 1 drops Aspirin (Aspirin 81 Mg Ectab) 81 mg PO DAILY OFE Stop: 11/24/22 08:59 Last Admin: 10/26/22 08:32 Dose: 81 mg Atorvastatin Calcium (Atorvastatin 10 Mg Tab) 10 mg PO HS [facility] Stop: 11/24/22 20:59 Last Admin: 10/25/22 20:16 Dose: 10 mg Bupropion HCl (Bupropion Xl 150 Mg Tabcr) 150 mg PO QAM [facility] Stop: 11/24/22 08:59 Last Admin: 10/26/22 08:32 Dose: 150 mg Dextrose (Dextrose 50% 50 Ml Syringe) 25 - 50 ml IV UD PRN; Protocol PRN Reason: Hypoglycemia Protocol Stop: 11/24/22 04:07 Digoxin (Digoxin 0.125 Mg Tab) 0.125 mg PO DAILY@1600 [facility] Stop: 11/24/22 15:59 Last Admin: 10/25/22 16:15 Dose: 0.125 mg Duloxetine HCl (Duloxetine Hcl 60 Mg Cap) 60 mg PO DAILY [facility] Stop: 11/24/22 08:59 Last Admin: 10/26/22 08:32 Dose: 60 mg Erythromycin (Erythromycin Op Oint 5 Mg/Gm 3.5 Gm Tube) 1 appln OPB HS [facility] Stop: 11/04/22 20:59 Last Admin: 10/25/22 20:16 Dose: 1 appln Furosemide (Furosemide 80 Mg Tab) 80 mg PO BID17 [facility] Stop: 11/24/22 08:59 Last Admin: 10/26/22 08:32 Dose: 80 mg Gabapentin (Gabapentin 300 Mg Cap) 300 mg PO QID [facility] Stop: 11/24/22 08:59 Last Admin: 10/26/22 08:31 Dose: 300 mg Glucagon (Glucagon For Inj 1 Mg Vial) 1 mg SQ UD PRN; Protocol PRN Reason: Hypoglycemia Protocol Stop: 11/24/22 04:07 Glucose (Glucose 10 Tab/Tube) 4 - 8 tab PO UD PRN; Protocol PRN Reason: Hypoglycemia Treatment Stop: 11/24/22 04:07 Glucose (Glucose 40% Gel 15 Gm Tube) 15 - 30 gm PO UD PRN; Protocol PRN Reason: Hypoglycemia Protocol Stop: 11/24/22 04:07 Guaifenesin (Guaifenesin 600 Mg Tabcr) 600 mg PO Q12 [facility] Stop: 11/24/22 14:04 Last Admin: 10/26/22 08:31 Dose: 600 mg Piperacillin Sod/Tazobactam (Sod 3.375 gm/ Dextrose) 115 mls @ 28.75 mls/hr IV Q8H [facility]; Protocol Stop: 11/01/22 07:59 Last Admin: 10/26/22 08:35 Dose: 28.8 mls/hr Doxycycline Hyclate 100 mg/ (Dextrose) 110 mls @ 50 mls/hr IV Q12H [facility] Stop: 11/01/22 05:59 Last Infusion: 10/26/22 08:26 Dose: Infused Insulin Aspart (Insulin Aspart Per Unit Charge) 0 units SC ACHS [facility] Stop: 11/24/22 04:44 Last Admin: 10/26/22 08:35 Dose: 21 units Insulin Glargine (Lantus Per Unit Charge) 0 units SQ BID [facility]; Protocol Stop: 11/24/22 20:59 Last Admin: 10/25/22 21:36 Dose: 60 units Insulin Glargine (Lantus Per Unit Charge) 70 units SQ 0900 [facility]; Protocol Stop: 10/26/22 11:00 Last Admin: 10/26/22 08:35 Dose: 70 units Levothyroxine Sodium (Levothyroxine Sodium 125 Mcg Tablet) 250 mcg PO DAILYBB [facility] Stop: 11/24/22 06:29 Last Admin: 10/26/22 06:14 Dose: 250 mcg Lidocaine (Lidocaine 5% 1 Patch) 1 patch TD DAILY [facility] Stop: 11/24/22 08:59 Last Admin: 10/26/22 08:31 Dose: Not Given Loratadine (Loratadine 10 Mg Tab) 20 mg PO DAILY PRN PRN Reason: .allergies Stop: 11/24/22 04:07 Magnesium Oxide (Magnesium Oxide 400 Mg Tab) 400 mg PO DAILY [facility] Stop: 11/24/22 08:59 Last Admin: 10/26/22 08:32 Dose: 400 mg Metoprolol Succinate (Metoprolol Succ 50mg Ext Rel Tab) 100 mg PO BID [facility] Stop: 11/24/22 08:59 Last Admin: 10/26/22 08:31 Dose: 100 mg Miscellaneous (Carbohydrates For Hypoglycemia ) 15 - 30 gm PO UD PRN PRN Reason: Hypoglycemia Protocol Stop: 11/24/22 04:07 Miscellaneous (Remove Lidoderm Patch) 1 each N/A DAILY@2100 [facility] Stop: 11/24/22 20:59 Last Admin: 10/25/22 20:33 Dose: 1 each Miscellaneous Information (Pharmacy Glycemic Mgmt Consult) 1 each N/A UD PRN PRN Reason: Consult Stop: 11/24/22 04:07 Multivitamins/Minerals (Cerovite Adv Formula Tab) 1 tab PO DAILY [facility] Stop: 11/24/22 08:59 Last Admin: 10/26/22 08:32 Dose: 1 tab Naphazoline HCl/Pheniramine Maleate (Naphazolin/Pheniramin Oph Soln 75 Drops/5 Ml Btl) 2 drops OP Q6 PRN PRN Reason: Eye Irritation Stop: 11/24/22 04:07 Nitroglycerin (Nitroglycerin Sl 0.4 Mg/Tab Tab) 0.4 mg SL UD PRN PRN Reason: Chest Pain Stop: 11/24/22 04:07 Nystatin/Triamcinolone Acetonide (Nystatin/Triamcin Oint 15 Gm Tube) 1 appln EXT BID [facility] Stop: 11/24/22 08:59 Last Admin: 10/26/22 08:32 Dose: 1 appln Pantoprazole Sodium (Pantoprazole 40 Mg Tab) 40 mg PO QAM [facility] Stop: 11/24/22 08:59 Last Admin: 10/26/22 08:32 Dose: 40 mg Polyethylene Glycol (Polyethylene (Miralax) 17 Gm Pack) 17 gm PO DAILY PRN PRN Reason: Constipation Stop: 11/24/22 04:07 Potassium Chloride (Potassium Chloride Crtab 20 Meq Tabcr) 20 meq PO BID [facility] Stop: 11/24/22 08:59 Last Admin: 10/26/22 08:31 Dose: 20 meq Sennosides (Senna 8.6 Mg Tab) 8.6 mg PO BID [facility] Stop: 11/24/22 08:59 Last Admin: 10/26/22 08:31 Dose: 8.6 mg Spironolactone (Spironolactone 25 Mg Tab) 25 mg PO DAILY [facility] Stop: 11/24/22 08:59 Last Admin: 10/26/22 08:32 Dose: 25 mg Vitamin D (Cholecalciferol 1,000 Units 25 Mcg Tab) 2,000 units PO DAILY [facility] Stop: 11/24/22 08:59 Last Admin: 10/26/22 08:32 Dose: 2,000 units
[2022-10-26] MEDS: ADVANCED PROBIOTIC 1250 MG CAPSULE PO SCH (15:30)
--- NOTE | 2022-10-26 15:34 | Pharmacy Report ---
Pharmacy Glycemic Short Note 2 - Date of Service October 26, 2022 - Glycemic Short BSG Results (Last 24 hours): 10/25/22 10/25/22 10/26/22 16:23 20:40 05:30 Glucose 255 H POC Glucose 246 H 207 H 10/26/22 10/26/22 07:22 11:24 Glucose POC Glucose 226 H 281 H OUTPATIENT ANTIDIABETIC REGIMEN: * Lantus 60 units SQ BID * Novolog 14 units TID with meals + SS * A1c = 10.8% ASSESSMENT: * Marcial is a 72 yo T2DM admitted with weakness, rash on abdomen and concern for pneumonia. * He is known to the glycemic service from past admissions. During these admissions, he was on variable amounts of insulin (80-240 units/day) and commonly receiving steroids at the same time. * He received 120 units of Lantus yesterday. Fasting BSG improving but remains quite elevated. Will increase Lantus scale. * Lunch BSG of 281 mg/dL. Persistent post prandial hyperglycemia yesterday. Will tighten CF and CR. PLAN FOR INPATIENT GLYCEMIC CONTROL: * Hold outpatient oral diabetes medications * Basal insulin * Lantus 50-70 units SQ BID * Bolus insulin * NovoLog per scale ACHS or Q6hrs while NPO * Goal Range: Low 110 mg/dL - High 150 mg/dL * Correction Factor: 12 mg/dL/unit * Nutritional / Prandial insulin per carb ratio of 1 unit per 3 grams CHO consumed
[2022-10-26] MEDS: DIGOXIN 0.125 MG TAB PO SCH (16:51)
[2022-10-26] MEDS: ACETAMINOPHEN 325 MG TAB PO PRN (19:17)
[2022-10-26] MEDS: ATORVASTATIN 10 MG TAB PO SCH (20:45)
[2022-10-26] MEDS: ERYTHROMYCIN OP OINT 5 MG/GM 3.5 GM TUBE OPB SCH (20:46)
[2022-10-26] MEDS: LANTUS PER UNIT CHARGE SQ SCH (20:47)
[2022-10-27] MEDS: PIPERACILLIN/TAZOBACTAM 3.375 GM in DEXTROSE 5% 100 ML IV SCH ×3 (00:09→14:44)
[2022-10-27] MEDS: INSULIN ASPART PER UNIT CHARGE SC SCH ×6 (00:10→21:29)
[2022-10-27] MEDS: DOXYCYCLINE HYCLATE 100 MG in DEXTROSE 5% 100 ML IV SCH ×2 (06:12→17:20)
[2022-10-27] MEDS: LEVOTHYROXINE SODIUM 125 MCG TABLET PO SCH (06:13)
[2022-10-27 06:58] LABS: Hematocrit (blood only) 38.6 % (42.0-52.0); Hemoglobin 12.1 g/dl (14.0-18.0); Mean Corpuscular Hemoglobin 27.9 pg (25.0-34.0); Mean Corpuscular Hgb Conc 31.3 g/dL (32.0-36.0); Mean Corpuscular Volume 89.1 fL (80.0-100.0); Mean Platelet Volume 11.2 fL (9.4-12.4); Platelet Count 140 K/uL (130-400); RDW Coefficient of Variation 18.9 % (11.5-14.5); RDW Standard Deviation 62.3 fL (36.4-46.3); Red Blood Count 4.33 M/uL (4.70-6.10); White Blood Count 6.79 K/ul (4.8-10.8)
[2022-10-27] MEDS: SENNA 8.6 MG TAB PO SCH ×2 (08:23→21:03)
[2022-10-27] MEDS: GABAPENTIN 300 MG CAP PO SCH ×4 (08:23→21:06)
[2022-10-27] MEDS: guaiFENesin 600 MG TABCR PO SCH ×2 (08:23→21:06)
[2022-10-27] MEDS: LANTUS PER UNIT CHARGE SQ SCH ×2 (08:23→21:29)
[2022-10-27] MEDS: APIXABAN 5 MG TABLET PO SCH ×2 (08:24→21:10)
[2022-10-27] MEDS: LIDOCAINE 5% 1 PATCH TD SCH (08:24)
[2022-10-27] MEDS: SPIRONOLACTONE 25 MG TAB PO SCH (08:24)
[2022-10-27] MEDS: DULoxetine HCL 60 MG CAP PO SCH (08:24)
[2022-10-27] MEDS: METOPROLOL SUCC 50MG EXT REL TAB PO SCH ×2 (08:24→21:10)
[2022-10-27] MEDS: allopurinoL 300 MG TAB PO SCH (08:24)
[2022-10-27] MEDS: buPROPion XL 150 MG TABCR PO SCH (08:24)
[2022-10-27] MEDS: ASPIRIN 81 MG ECTAB PO SCH (08:24)
[2022-10-27] MEDS: CEROVITE ADV FORMULA TAB PO SCH (08:24)
[2022-10-27] MEDS: CHOLECALCIFEROL 1,000 UNITS 25 MCG TAB PO SCH (08:24)
[2022-10-27] MEDS: ADVANCED PROBIOTIC 1250 MG CAPSULE PO SCH (08:25)
[2022-10-27] MEDS: FUROSEMIDE 80 MG TAB PO SCH ×2 (08:25→17:15)
[2022-10-27] MEDS: PANTOprazole 40 MG TAB PO SCH (08:25)
[2022-10-27] MEDS: MAGNESIUM OXIDE 400 MG TAB PO SCH (08:25)
[2022-10-27] MEDS: NYSTATIN/TRIAMCIN OINT 15 GM TUBE EXT SCH ×2 (08:25→21:06)
[2022-10-27] MEDS: ARTIFICIAL TEARS OP SCH ×4 (08:25→21:11)
[2022-10-27] MEDS: POTASSIUM CHLORIDE CRTAB 20 MEQ TABCR PO SCH ×2 (08:33→21:03)
[2022-10-27 09:34] LABS: Calcium 9.1 mg/dl (8.6-10.3); Magnesium 1.8 mg/dl (1.7-2.4); Potassium 3.6 mmol/L (3.5-5.1)
[2022-10-27 09:40] LABS: Creatinine Clr Calc Pharmacy 82.4 ml/min; Est GFR (African American) 69.2 ml/min; Est GFR (Non-African American) 59.7 ml/min; Phosphorus 3.2 mg/dl (2.5-4.9)
--- NOTE | 2022-10-27 13:18 | Pharmacy Report ---
Pharmacy Glycemic Short Note 2 - Date of Service October 27, 2022 - Glycemic Short BSG Results (Last 24 hours): 10/26/22 10/26/22 10/26/22 16:19 20:34 23:19 Glucose POC Glucose 189 H 147 H 197 H 10/27/22 10/27/22 10/27/22 04:16 05:50 07:30 Glucose 178 H POC Glucose 204 H 182 H 10/27/22 10/27/22 11:22 11:45 Glucose POC Glucose 258 H 275 H OUTPATIENT ANTIDIABETIC REGIMEN: * Lantus 60 units SQ BID * Novolog 14 units TID with meals + SS * A1c = 10.8% ASSESSMENT: 10/27/22: * BSG's throughout the day yesterday recorded at [phone]. BSG 197-204 mg/dL on overnight checks. Today, 182 mg/dL AM fasting and 258 mg/dL at lunch. * Patient received 130 units of basal insulin and 75 units of bolus insulin yesterday. * No new stressors, T2DM diet continued. * Patient may benefit from tightened carb ratio to control elevated postprandial BSG's. 10/26/22: * Marcial is a 72 yo T2DM admitted with weakness, rash on abdomen and concern for pneumonia. * He is known to the glycemic service from past admissions. During these admissions, he was on variable amounts of insulin (80-240 units/day) and commonly receiving steroids at the same time. * He received 120 units of Lantus yesterday. Fasting BSG improving but remains quite elevated. Will increase Lantus scale. * Lunch BSG of 281 mg/dL. Persistent post prandial hyperglycemia yesterday. Will tighten CF and CR. PLAN FOR INPATIENT GLYCEMIC CONTROL: * Hold outpatient oral diabetes medications * Basal insulin * Lantus 40-60 units SQ BID * Bolus insulin * NovoLog per scale ACHS or Q6hrs while NPO * Goal Range: Low 110 mg/dL - High 150 mg/dL * Correction Factor: 12 mg/dL/unit * Nutritional / Prandial insulin per carb ratio of 1 unit per 2.5 grams CHO consumed
--- NOTE | 2022-10-27 14:46 | Hospitalist Progress Note ---
Date of Service October 27, 2022 Assessment & Plan (1) Weakness: Plan: This is a 72-year-old male who comes from [facility] with weakness, rash on abdomen and found to have possible pneumonia. 1. Possible pneumonia, left lower lobe possible cause of of weakness. Empirically started on Zosyn and doxycycline. Follow the response. Speech consult for possible aspiration. Guaifenesin, flutter valve, spirometer Overall feels improved but still on suppl. O2 switch from zosyn to augmentin Monitor in the hospital. 2. Erythematous macular rash large patches on abdomen and back. fungal versus bacterial infection versus inflammatory condition. Hx of psoriasis? We will empirically place him on nystain/ triamcinolone cream. Antibiotics as above. Dermatology consult - likely will see as outpt. Follow further response. Can consider Diflucan if Qt normalizes. 3. Prolonged QTc To avoid Qt prolonging drugs . Follow repeat EKG. 4. History of diabetes: Continue his home Lantus. ISS, Will momnitor the blood sugars, current HbA1c 10.8% - uncontrolled 5. Chronic systolic and diastolic congestive heart failure: Continue home Lasix, spironolactone and potassium supplements. Monitor for any volume overload. Echo done in 08/2022 shows ejection fraction of 50%. 6. Obstructive sleep apnea, uses oxygen at nighttime. 7. Hypertension, on metoprolol succinate, diuretics. We will monitor blood pressure. 8. Hypothyroidism, on Synthroid. 9. Atrial fibrillation, tachybrady syndrome, status post pacemaker. Digoxin, metoprolol and Eliquis. 10. History of pulmonary embolism, on Eliquis. 11. Gout, on allopurinol. 12. Depression with posttraumatic stress disorder, on duloxetine and bupropion. 13. Chronic diabetic neuropathy, on gabapentin. 14. History of Giant cell arteritis, was on prednisone, currently stopped. 15. History of onychomycosis, was on terbinafine. Follow up with Dermatology. 16. History of right leg wound ulcer, seems to be healing well as per the ou tpatient wound visit notes. Will consider consult wound care in the hospital. 17. Morbid obesity, needs counseling. 18. Chronic obstructive pulmonary disease, currently stable. 19. Abdominal Pain. Now improved/no abd. complaints. Eating ok, having BMs. Etioloy ? CT abd/pevis w/o any acute findings. Will monitor. DVT prophylaxis, on Eliquis. DISPOSITION: med tele. PT/OT prior to discharge. Social service to help with discharge planning. Admission and Anticipated Discharge Date Admission Date: October 25, 2022 Subjective Pt seen in follow up of weakness, LLL pna, hypoxia Currently sitting up in a chair, in no acute distress More alert, also reports feeling better since he came to the hospital No fevers chills, has some cough with grayish sputum No chest pain, no abdominal pain, no nausea vomiting, no constipation or diarrhea Review of Systems Review of Systems: All systems reviewed & are unremarkable except as noted in Subjective Physical Exam Physical Exam: GENERAL: The patient is morbidly obese, not in acute distress.on suppl. O2 HEENT: Pupils equal, round and reactive to light. Oral mucosa moist. NECK: No JVD, no neck masses. CARDIOVASCULAR: S1 and S2 heard. Regular rate and rhythm. No murmur, no gallop. RESPIRATORY: Normal AP diameter. No accessory muscle use. No wheezing, no crackles. ABDOMEN: Soft, bowel sounds present. Mild tenderness. Obese, No guarding. No rigidity. NEURO: Alert and oriented. Speech is clear. No facial droop. Obeys simple commands. Moves extremities. EXTREMITIES: Bilateral lower extremity gross edema seen. SKIN: Erythematous rash seen on the abdomen in patches and also on the lower back. Results & Data Results & Data Vital Signs (Past 12 Hours) Vital Signs Temp Pulse Pulse Resp BP BP Pulse Ox 10/27/22 14:38 36.3 C L 77 18 112/72 95 10/27/22 08:25 10/27/22 11:23 36.4 C L 78 20 149/84 H 95 10/27/22 07:44 36.4 C L 68 18 133/67 96 10/27/22 07:28 88 10/27/22 07:18 36.4 C L 72 24 122/79 95 10/27/22 03:18 36.4 C L 91 H 18 107/72 93 O2 Del Method O2 Flow Rate 10/27/22 14:38 Nasal Cannula 2 10/27/22 08:25 Nasal Cannula 2 10/27/22 11:23 Nasal Cannula 2 10/27/22 07:44 Nasal Cannula 2 10/27/22 07:28 10/27/22 07:18 Nasal Cannula 2 10/27/22 03:18 Nasal Cannula 2 Laboratory Results 10/27/22 10/27/22 10/27/22 Range/Units 11:45 11:22 07:30 WBC (4.8-10.8) K/ul RBC (4.70-6.10) M/uL Hgb (14.0-18.0) g/dl Hct (42.0-52.0) % MCV (80.0-100.0) fL MCH (25.0-34.0) pg MCHC (32.0-36.0) g/dL RDW Std Deviation (36.4-46.3) fL RDW Coeff of Baldo (11.5-14.5) % Plt Count (130-400) K/uL MPV (9.4-12.4) fL Sodium (136-145) mmol/L Potassium (3.5-5.1) mmol/L Chloride (98-107) mmol/L Carbon Dioxide (21-32) mmol/L Anion Gap (3-11) BUN (6-23) mg/dl Creatinine (0.6-1.4) mg/dl Est Cr Clr Drug Dosing ml/min Est GFR ( Amer) ml/min Est GFR (Non-Af Amer) ml/min BUN/Creatinine Ratio (10-20) Glucose (70-99(Fasting)) mg/dl POC Glucose 275 H 258 H 182 H (70-99) mg/dl Calcium (8.6-10.3) mg/dl Phosphorus (2.5-4.9) mg/dl Magnesium (1.7-2.4) mg/dl 10/27/22 10/27/22 10/27/22 Range/Units 05:50 05:50 04:16 WBC 6.79 (4.8-10.8) K/ul RBC 4.33 L (4.70-6.10) M/uL Hgb 12.1 L (14.0-18.0) g/dl Hct 38.6 L (42.0-52.0) % MCV 89.1 (80.0-100.0) fL MCH 27.9 (25.0-34.0) pg MCHC 31.3 L (32.0-36.0) g/dL RDW Std Deviation 62.3 H (36.4-46.3) fL RDW Coeff of Baldo 18.9 H (11.5-14.5) % Plt Count 140 (130-400) K/uL MPV 11.2 (9.4-12.4) fL Sodium 138 (136-145) mmol/L Potassium 3.6 (3.5-5.1) mmol/L Chloride 98 (98-107) mmol/L Carbon Dioxide 28 (21-32) mmol/L Anion Gap 12 H (3-11) BUN 22 (6-23) mg/dl Creatinine 1.22 (0.6-1.4) mg/dl Est Cr Clr Drug Dosing 82.4 ml/min Est GFR ( Amer) 69.2 ml/min Est GFR (Non-Af Amer) 59.7 ml/min BUN/Creatinine Ratio 18.0 (10-20) Glucose 178 H (70-99(Fasting)) mg/dl POC Glucose 204 H (70-99) mg/dl Calcium 9.1 (8.6-10.3) mg/dl Phosphorus 3.2 (2.5-4.9) mg/dl Magnesium 1.8 (1.7-2.4) mg/dl 10/26/22 10/26/22 10/26/22 Range/Units 23:19 20:34 16:19 WBC (4.8-10.8) K/ul RBC (4.70-6.10) M/uL Hgb (14.0-18.0) g/dl Hct (42.0-52.0) % MCV (80.0-100.0) fL MCH (25.0-34.0) pg MCHC (32.0-36.0) g/dL RDW Std Deviation (36.4-46.3) fL RDW Coeff of Baldo (11.5-14.5) % Plt Count (130-400) K/uL MPV (9.4-12.4) fL Sodium (136-145) mmol/L Potassium (3.5-5.1) mmol/L Chloride (98-107) mmol/L Carbon Dioxide (21-32) mmol/L Anion Gap (3-11) BUN (6-23) mg/dl Creatinine (0.6-1.4) mg/dl Est Cr Clr Drug Dosing ml/min Est GFR ( Amer) ml/min Est GFR (Non-Af Amer) ml/min BUN/Creatinine Ratio (10-20) Glucose (70-99(Fasting)) mg/dl POC Glucose 197 H 147 H 189 H (70-99) mg/dl Calcium (8.6-10.3) mg/dl Phosphorus (2.5-4.9) mg/dl Magnesium (1.7-2.4) mg/dl Medications Administered Current Inpatient Medications Acetaminophen (Acetaminophen 325 Mg Tab) 650 mg PO Q4H PRN PRN Reason: Pain or Fever Stop: 11/24/22 04:07 Last Admin: 10/26/22 19:17 Dose: 650 mg Albuterol (Albuterol Hfa 8 Gm Inhaler) 2 puffs INH Q4 PRN PRN Reason: Shortness Of Breath Or Wheezin Stop: 11/24/22 04:07 Allopurinol (Allopurinol 300 Mg Tab) 300 mg PO DAILY OFE Stop: 11/24/22 08:59 Last Admin: 10/27/22 08:24 Dose: 300 mg Apixaban (Apixaban 5 Mg Tablet) 5 mg PO Q12 OFE Stop: 11/24/22 08:59 Last Admin: 10/27/22 08:24 Dose: 5 mg Artificial Tears (Artificial Tears) 1 drops OP QID OFE Stop: 11/24/22 08:59 Last Admin: 10/27/22 12:06 Dose: 1 drops Aspirin (Aspirin 81 Mg Ectab) 81 mg PO DAILY OFE Stop: 11/24/22 08:59 Last Admin: 10/27/22 08:24 Dose: 81 mg Atorvastatin Calcium (Atorvastatin 10 Mg Tab) 10 mg PO HS OFE Stop: 11/24/22 20:59 Last Admin: 10/26/22 20:45 Dose: 10 mg Bupropion HCl (Bupropion Xl 150 Mg Tabcr) 150 mg PO QAM OFE Stop: 11/24/22 08:59 Last Admin: 10/27/22 08:24 Dose: 150 mg Dextrose (Dextrose 50% 50 Ml Syringe) 25 - 50 ml IV UD PRN; Protocol PRN Reason: Hypoglycemia Protocol Stop: 11/24/22 04:07 Digoxin (Digoxin 0.125 Mg Tab) 0.125 mg PO DAILY@1600 OFE Stop: 11/24/22 15:59 Last Admin: 10/26/22 16:51 Dose: 0.125 mg Duloxetine HCl (Duloxetine Hcl 60 Mg Cap) 60 mg PO DAILY [facility] Stop: 11/24/22 08:59 Last Admin: 10/27/22 08:24 Dose: 60 mg Erythromycin (Erythromycin Op Oint 5 Mg/Gm 3.5 Gm Tube) 1 appln OPB HS OFE Stop: 11/04/22 20:59 Last Admin: 10/26/22 20:46 Dose: 1 appln Furosemide (Furosemide 80 Mg Tab) 80 mg PO BID17 OFE Stop: 11/24/22 08:59 Last Admin: 10/27/22 08:25 Dose: 80 mg Gabapentin (Gabapentin 300 Mg Cap) 300 mg PO QID [facility] Stop: 11/24/22 08:59 Last Admin: 10/27/22 12:06 Dose: 300 mg Glucagon (Glucagon For Inj 1 Mg Vial) 1 mg SQ UD PRN; Protocol PRN Reason: Hypoglycemia Protocol Stop: 11/24/22 04:07 Glucose (Glucose 10 Tab/Tube) 4 - 8 tab PO UD PRN; Protocol PRN Reason: Hypoglycemia Treatment Stop: 11/24/22 04:07 Glucose (Glucose 40% Gel 15 Gm Tube) 15 - 30 gm PO UD PRN; Protocol PRN Reason: Hypoglycemia Protocol Stop: 11/24/22 04:07 Guaifenesin (Guaifenesin 600 Mg Tabcr) 600 mg PO Q12 [facility] Stop: 11/24/22 14:04 Last Admin: 10/27/22 08:23 Dose: 600 mg Piperacillin Sod/Tazobactam (Sod 3.375 gm/ Dextrose) 115 mls @ 28.75 mls/hr IV Q8H [facility]; Protocol Stop: 11/01/22 07:59 Last Admin: 10/27/22 14:44 Dose: 28.8 mls/hr Doxycycline Hyclate 100 mg/ (Dextrose) 110 mls @ 50 mls/hr IV Q12H [facility] Stop: 11/01/22 05:59 Last Infusion: 10/27/22 08:32 Dose: Infused Insulin Aspart (Insulin Aspart Per Unit Charge) 0 units SC ACHS [facility] Stop: 11/24/22 04:44 Last Admin: 10/27/22 12:06 Dose: 32 units Insulin Glargine (Lantus Per Unit Charge) 0 units SQ BID [facility]; Protocol Stop: 11/24/22 20:59 Last Admin: 10/27/22 08:23 Dose: 60 units Lactobacillus Acidophilus (Advanced Probiotic 1250 Mg Capsule) 2 cap PO DAILY [facility] Stop: 11/25/22 14:44 Last Admin: 10/27/22 08:25 Dose: 2 cap Levothyroxine Sodium (Levothyroxine Sodium 125 Mcg Tablet) 250 mcg PO DAILYBB [facility] Stop: 11/24/22 06:29 Last Admin: 10/27/22 06:13 Dose: 250 mcg Lidocaine (Lidocaine 5% 1 Patch) 1 patch TD DAILY [facility] Stop: 11/24/22 08:59 Last Admin: 10/27/22 08:24 Dose: Not Given Loratadine (Loratadine 10 Mg Tab) 20 mg PO DAILY PRN PRN Reason: .allergies Stop: 11/24/22 04:07 Magnesium Oxide (Magnesium Oxide 400 Mg Tab) 400 mg PO DAILY [facility] Stop: 11/24/22 08:59 Last Admin: 10/27/22 08:25 Dose: 400 mg Metoprolol Succinate (Metoprolol Succ 50mg Ext Rel Tab) 100 mg PO BID [facility] Stop: 11/24/22 08:59 Last Admin: 10/27/22 08:24 Dose: 100 mg Miscellaneous (Carbohydrates For Hypoglycemia ) 15 - 30 gm PO UD PRN PRN Reason: Hypoglycemia Protocol Stop: 11/24/22 04:07 Miscellaneous (Remove Lidoderm Patch) 1 each N/A DAILY@2100 [facility] Stop: 11/24/22 20:59 Last Admin: 10/26/22 21:41 Dose: 1 each Miscellaneous Information (Pharmacy Glycemic Mgmt Consult) 1 each N/A UD PRN PRN Reason: Consult Stop: 11/24/22 04:07 Multivitamins/Minerals (Cerovite Adv Formula Tab) 1 tab PO DAILY [facility] Stop: 11/24/22 08:59 Last Admin: 10/27/22 08:24 Dose: 1 tab Naphazoline HCl/Pheniramine Maleate (Naphazolin/Pheniramin Oph Soln 75 Drops/5 Ml Btl) 2 drops OP Q6 PRN PRN Reason: Eye Irritation Stop: 11/24/22 04:07 Nitroglycerin (Nitroglycerin Sl 0.4 Mg/Tab Tab) 0.4 mg SL UD PRN PRN Reason: Chest Pain Stop: 11/24/22 04:07 Nystatin/Triamcinolone Acetonide (Nystatin/Triamcin Oint 15 Gm Tube) 1 appln EXT BID OFE Stop: 11/24/22 08:59 Last Admin: 10/27/22 08:25 Dose: 1 appln Pantoprazole Sodium (Pantoprazole 40 Mg Tab) 40 mg PO QAM OFE Stop: 11/24/22 08:59 Last Admin: 10/27/22 08:25 Dose: 40 mg Polyethylene Glycol (Polyethylene (Miralax) 17 Gm Pack) 17 gm PO DAILY PRN PRN Reason: Constipation Stop: 11/24/22 04:07 Potassium Chloride (Potassium Chloride Crtab 20 Meq Tabcr) 20 meq PO BID OFE Stop: 11/24/22 08:59 Last Admin: 10/27/22 08:33 Dose: 20 meq Sennosides (Senna 8.6 Mg Tab) 8.6 mg PO BID OFE Stop: 11/24/22 08:59 Last Admin: 10/27/22 08:23 Dose: 8.6 mg Spironolactone (Spironolactone 25 Mg Tab) 25 mg PO DAILY OFE Stop: 11/24/22 08:59 Last Admin: 10/27/22 08:24 Dose: 25 mg Vitamin D (Cholecalciferol 1,000 Units 25 Mcg Tab) 2,000 units PO DAILY OFE Stop: 11/24/22 08:59 Last Admin: 10/27/22 08:24 Dose: 2,000 units
[2022-10-27] MEDS: DIGOXIN 0.125 MG TAB PO SCH (17:15)
[2022-10-27] MEDS: AMOXICILLIN/CLAVULANATE 875 MG TAB PO SCH (17:19)
[2022-10-27] MEDS: ACETAMINOPHEN 325 MG TAB PO PRN (19:45)
[2022-10-27] MEDS: ERYTHROMYCIN OP OINT 5 MG/GM 3.5 GM TUBE OPB SCH (21:06)
[2022-10-27] MEDS: ATORVASTATIN 10 MG TAB PO SCH (21:10)
[2022-10-27] MEDS ORDERED: Nursing to Pharmacy Communication SCH (22:30)
[2022-10-28] MEDS: LEVOTHYROXINE SODIUM 125 MCG TABLET PO SCH (05:55)
[2022-10-28] MEDS: DOXYCYCLINE HYCLATE 100 MG in DEXTROSE 5% 100 ML IV SCH ×2 (05:56→17:54)
[2022-10-28] MEDS: ACETAMINOPHEN 325 MG TAB PO PRN (05:59)
[2022-10-28 06:23] LABS: Hematocrit (blood only) 38.7 % (42.0-52.0); Hemoglobin 12.4 g/dl (14.0-18.0); Mean Corpuscular Hemoglobin 28.5 pg (25.0-34.0); Mean Platelet Volume 11.1 fL (9.4-12.4); Platelet Count 152 K/uL (130-400); RDW Coefficient of Variation 18.8 % (11.5-14.5); RDW Standard Deviation 61.1 fL (36.4-46.3); Red Blood Count 4.35 M/uL (4.70-6.10); White Blood Count 7.85 K/ul (4.8-10.8)
[2022-10-28 06:42] LABS: BUN Creatinine Ratio 20.3 (10-20); Calcium 9.2 mg/dl (8.6-10.3); Creatinine Clr Calc Pharmacy 85.4 ml/min; Est GFR (Non-African American) 62.2 ml/min; Magnesium 1.7 mg/dl (1.7-2.4); Phosphorus 3.3 mg/dl (2.5-4.9); Potassium 3.4 mmol/L (3.5-5.1)
[2022-10-28] MEDS: FUROSEMIDE 80 MG TAB PO SCH ×2 (08:03→17:11)
[2022-10-28] MEDS: ASPIRIN 81 MG ECTAB PO SCH (08:03)
[2022-10-28] MEDS: buPROPion XL 150 MG TABCR PO SCH (08:03)
[2022-10-28] MEDS: APIXABAN 5 MG TABLET PO SCH ×2 (08:03→21:27)
[2022-10-28] MEDS: GABAPENTIN 300 MG CAP PO SCH ×4 (08:03→21:25)
[2022-10-28] MEDS: POTASSIUM CHLORIDE CRTAB 20 MEQ TABCR PO SCH ×2 (08:03→21:21)
[2022-10-28] MEDS: SENNA 8.6 MG TAB PO SCH ×2 (08:03→21:28)
[2022-10-28] MEDS: guaiFENesin 600 MG TABCR PO SCH ×2 (08:03→21:31)
[2022-10-28] MEDS: PANTOprazole 40 MG TAB PO SCH (08:03)
[2022-10-28] MEDS: LIDOCAINE 5% 1 PATCH TD SCH (08:04)
[2022-10-28] MEDS: DULoxetine HCL 60 MG CAP PO SCH (08:04)
[2022-10-28] MEDS: ADVANCED PROBIOTIC 1250 MG CAPSULE PO SCH (08:04)
[2022-10-28] MEDS: SPIRONOLACTONE 25 MG TAB PO SCH (08:04)
[2022-10-28] MEDS: CEROVITE ADV FORMULA TAB PO SCH (08:04)
[2022-10-28] MEDS: AMOXICILLIN/CLAVULANATE 875 MG TAB PO SCH ×2 (08:04→17:29)
[2022-10-28] MEDS: allopurinoL 300 MG TAB PO SCH (08:04)
[2022-10-28] MEDS: MAGNESIUM OXIDE 400 MG TAB PO SCH (08:04)
[2022-10-28] MEDS: ARTIFICIAL TEARS OP SCH ×4 (08:04→21:30)
[2022-10-28] MEDS: CHOLECALCIFEROL 1,000 UNITS 25 MCG TAB PO SCH (08:04)
[2022-10-28] MEDS: METOPROLOL SUCC 50MG EXT REL TAB PO SCH ×2 (08:05→21:27)
[2022-10-28] MEDS: INSULIN ASPART PER UNIT CHARGE SC SCH ×4 (08:06→20:49)
[2022-10-28] MEDS ORDERED: POTASSIUM CHLORIDE CRTAB 20 MEQ TABCR PO STA (08:49)
--- NOTE | 2022-10-28 08:52 | Hospitalist Progress Note ---
Date of Service October 28, 2022 Assessment & Plan (1) Weakness: Plan: This is a 72-year-old male who comes from [facility] with weakness, rash on abdomen and found to have possible pneumonia. 1. Possible pneumonia, left lower lobe possible cause of of weakness. Empirically started on Zosyn and doxycycline. Follow the response. Speech consult for possible aspiration. Guaifenesin, flutter valve, spirometer Overall feels improved but still on suppl. O2 switch from zosyn to augmentin Monitor in the hospital. 2. Erythematous macular rash large patches on abdomen and back. fungal versus bacterial infection versus inflammatory condition. Hx of psoriasis? We empirically placed him on nystain/ triamcinolone cream. Antibiotics as above. Dermatology consulted - pustular psoriasis [id number]. Approximately 5% BSA involvement. He is non-toxic without systemic symptoms, and some areas already seem to be showing signs of resolution, particularly the buttocks and mid abdomen. Recommend the followin) Discontinue triamcinolone/nystatin cream. 2) Start betamethasone dipropionate 0.05% cream to active areas twice daily x 2 weeks. I will also send Rx to his outpatient pharmacy so that he can complete a course of treatment upon discharge. 3) Follow-up 2-3 weeks after discharge to check status and adjust regimen as needed based on initial response to treatment. 3. Prolonged QTc To avoid Qt prolonging drugs . Follow repeat EKG. 4. History of diabetes: Continue his home Lantus. ISS, Will momnitor the blood sugars, current HbA1c 10.8% - uncontrolled - needs outpt follow up 5. Chronic systolic and diastolic congestive heart failure: Continue home Lasix, spironolactone and potassium supplements. Monitor for any volume overload. Echo done in 08/2022 shows ejection fraction of 50%. 6. Obstructive sleep apnea, uses oxygen at nighttime. 7. Hypertension, on metoprolol succinate, diuretics. We will monitor blood pressure. 8. Hypothyroidism, on Synthroid. 9. Atrial fibrillation, tachybrady syndrome, status post pacemaker. Digoxin, metoprolol and Eliquis. 10. History of pulmonary embolism, on Eliquis. 11. Gout, on allopurinol. 12. Depression with posttraumatic stress disorder, on duloxetine and bupropion. 13. Chronic diabetic neuropathy, on gabapentin. 14. History of Giant cell arteritis, was on prednisone, currently stopped. 15. History of onychomycosis, was on terbinafine. Follow up with Dermatology. 16. History of right leg wound ulcer, seems to be healing well as per the outpatient wound visit notes. Will consider consult wound care in the hospital. 17. Morbid obesity, needs counseling. 18. Chronic obstructive pulmonary disease, currently stable. 19. Abdominal Pain on admission - possibly from rash? Now resolved/no abd. complaints. Eating ok, having BMs. CT abd/pevis w/o any acute findings. Will monitor. DVT prophylaxis, on Eliquis. DISPOSITION: med tele. PT/OT prior to discharge. Social service to help with discharge planning. Admission and Anticipated Discharge Date Admission Date: October 25, 2022 Subjective Pt seen in follow up of weakness, LLL pna, hypoxia Currently sitting up in a chair, in no acute distress More alert, also reports feeling better since he came to the hospital No fevers chills, has some cough with grayish sputum No chest pain, no abdominal pain, no nausea vomiting, no constipation or diarrhea Patient seen by dermatology, recommendations noted. Also discussed follow-up in 2 to 3 weeks. Review of Systems Review of Systems: All systems reviewed & are unremarkable except as noted in Subjective Physical Exam Physical Exam: GENERAL: The patient is morbidly obese, not in acute distress.on suppl. O2 HEENT: Pupils equal, round and reactive to light. Oral mucosa moist. NECK: No JVD, no neck masses. CARDIOVASCULAR: S1 and S2 heard. Regular rate and rhythm. No murmur, no gallop. RESPIRATORY: Normal AP diameter. No accessory muscle use. No wheezing, no crackles. ABDOMEN: Soft, bowel sounds present. Mild tenderness. Obese, No guarding. No rigidity. NEURO: Alert and oriented. Speech is clear. No facial droop. Obeys simple commands. Moves extremities. EXTREMITIES: Bilateral lower extremity gross edema seen. SKIN: Erythematous rash seen on the abdomen in patches and also on the lower back. Results & Data Results & Data Vital Signs (Past 12 Hours) Vital Signs Temp Pulse Pulse Resp BP BP Pulse Ox 10/28/22 08:04 36.4 C L 70 20 97/62 L 95 10/28/22 08:05 108/72 10/28/22 07:39 79 10/28/22 03:35 36.4 C L 98 H 18 129/84 94 10/28/22 01:36 88 10/27/22 21:00 10/27/22 23:18 86 124/84 95 10/27/22 23:10 36.4 C L 88 18 95/68 L 95 10/27/22 21:10 83 140/81 96 O2 Del Method O2 Flow Rate 10/28/22 08:04 Nasal Cannula 2 10/28/22 08:05 10/28/22 07:39 10/28/22 03:35 Nasal Cannula 2 10/28/22 01:36 10/27/22 21:00 Nasal Cannula 2.5 10/27/22 23:18 Nasal Cannula 2.5 10/27/22 23:10 Nasal Cannula 2 10/27/22 21:10 Nasal Cannula 2.5 Laboratory Results 10/28/22 10/28/22 10/28/22 Range/Units 07:36 05:42 05:42 WBC 7.85 (4.8-10.8) K/ul RBC 4.35 L (4.70-6.10) M/uL Hgb 12.4 L (14.0-18.0) g/dl Hct 38.7 L (42.0-52.0) % MCV 89.0 (80.0-100.0) fL MCH 28.5 (25.0-34.0) pg MCHC 32.0 (32.0-36.0) g/dL RDW Std Deviation 61.1 H (36.4-46.3) fL RDW Coeff of Baldo 18.8 H (11.5-14.5) % Plt Count 152 (130-400) K/uL MPV 11.1 (9.4-12.4) fL Sodium 139 (136-145) mmol/L Potassium 3.4 L (3.5-5.1) mmol/L Chloride 99 (98-107) mmol/L Carbon Dioxide 32 (21-32) mmol/L Anion Gap 8 (3-11) BUN 24 H (6-23) mg/dl Creatinine 1.18 (0.6-1.4) mg/dl Est Cr Clr Drug Dosing 85.4 ml/min Est GFR ( Amer) 72.0 ml/min Est GFR (Non-Af Amer) 62.2 ml/min BUN/Creatinine Ratio 20.3 H (10-20) Glucose 130 H (70-99(Fasting)) mg/dl POC Glucose 149 H (70-99) mg/dl Calcium 9.2 (8.6-10.3) mg/dl Phosphorus 3.3 (2.5-4.9) mg/dl Magnesium 1.7 (1.7-2.4) mg/dl 10/27/22 10/27/22 10/27/22 Range/Units 20:04 16:23 11:45 WBC (4.8-10.8) K/ul RBC (4.70-6.10) M/uL Hgb (14.0-18.0) g/dl Hct (42.0-52.0) % MCV (80.0-100.0) fL MCH (25.0-34.0) pg MCHC (32.0-36.0) g/dL RDW Std Deviation (36.4-46.3) fL RDW Coeff of Baldo (11.5-14.5) % Plt Count (130-400) K/uL MPV (9.4-12.4) fL Sodium (136-145) mmol/L Potassium (3.5-5.1) mmol/L Chloride (98-107) mmol/L Carbon Dioxide (21-32) mmol/L Anion Gap (3-11) BUN (6-23) mg/dl Creatinine (0.6-1.4) mg/dl Est Cr Clr Drug Dosing ml/min Est GFR ( Amer) ml/min Est GFR (Non-Af Amer) ml/min BUN/Creatinine Ratio (10-20) Glucose (70-99(Fasting)) mg/dl POC Glucose 153 H 199 H 275 H (70-99) mg/dl Calcium (8.6-10.3) mg/dl Phosphorus (2.5-4.9) mg/dl Magnesium (1.7-2.4) mg/dl 10/27/22 10/27/22 Range/Units 11:22 05:50 WBC (4.8-10.8) K/ul RBC (4.70-6.10) M/uL Hgb (14.0-18.0) g/dl Hct (42.0-52.0) % MCV (80.0-100.0) fL MCH (25.0-34.0) pg MCHC (32.0-36.0) g/dL RDW Std Deviation (36.4-46.3) fL RDW Coeff of Baldo (11.5-14.5) % Plt Count (130-400) K/uL MPV (9.4-12.4) fL Sodium 138 (136-145) mmol/L Potassium 3.6 (3.5-5.1) mmol/L Chloride 98 (98-107) mmol/L Carbon Dioxide 28 (21-32) mmol/L Anion Gap 12 H (3-11) BUN 22 (6-23) mg/dl Creatinine 1.22 (0.6-1.4) mg/dl Est Cr Clr Drug Dosing 82.4 ml/min Est GFR ( Amer) 69.2 ml/min Est GFR (Non-Af Amer) 59.7 ml/min BUN/Creatinine Ratio 18.0 (10-20) Glucose 178 H (70-99(Fasting)) mg/dl POC Glucose 258 H (70-99) mg/dl Calcium 9.1 (8.6-10.3) mg/dl Phosphorus 3.2 (2.5-4.9) mg/dl Magnesium 1.8 (1.7-2.4) mg/dl Medications Administered Current Inpatient Medications Acetaminophen (Acetaminophen 325 Mg Tab) 650 mg PO Q4H PRN PRN Reason: Pain or Fever Stop: 11/24/22 04:07 Last Admin: 10/28/22 05:59 Dose: 650 mg Albuterol (Albuterol Hfa 8 Gm Inhaler) 2 puffs INH Q4 PRN PRN Reason: Shortness Of Breath Or Wheezin Stop: 11/24/22 04:07 Allopurinol (Allopurinol 300 Mg Tab) 300 mg PO DAILY OFE Stop: 11/24/22 08:59 Last Admin: 10/28/22 08:04 Dose: 300 mg Amoxicillin/Clavulanate Potassium (Amoxicillin/Clavulanate 875 Mg Tab) 1 tab PO BIDM OFE Stop: 11/03/22 16:59 Last Admin: 10/28/22 08:04 Dose: 1 tab Apixaban (Apixaban 5 Mg Tablet) 5 mg PO Q12 OFE Stop: 11/24/22 08:59 Last Admin: 10/28/22 08:03 Dose: 5 mg Artificial Tears (Artificial Tears) 1 drops OP QID [facility] Stop: 11/24/22 08:59 Last Admin: 10/28/22 08:04 Dose: 1 drops Aspirin (Aspirin 81 Mg Ectab) 81 mg PO DAILY OFE Stop: 11/24/22 08:59 Last Admin: 10/28/22 08:03 Dose: 81 mg Atorvastatin Calcium (Atorvastatin 10 Mg Tab) 10 mg PO HS OFE Stop: 11/24/22 20:59 Last Admin: 10/27/22 21:10 Dose: 10 mg Bupropion HCl (Bupropion Xl 150 Mg Tabcr) 150 mg PO QAM [facility] Stop: 11/24/22 08:59 Last Admin: 10/28/22 08:03 Dose: 150 mg Dextrose (Dextrose 50% 50 Ml Syringe) 25 - 50 ml IV UD PRN; Protocol PRN Reason: Hypoglycemia Protocol Stop: 11/24/22 04:07 Digoxin (Digoxin 0.125 Mg Tab) 0.125 mg PO DAILY@1600 [facility] Stop: 11/24/22 15:59 Last Admin: 10/27/22 17:15 Dose: 0.125 mg Duloxetine HCl (Duloxetine Hcl 60 Mg Cap) 60 mg PO DAILY OFE Stop: 11/24/22 08:59 Last Admin: 10/28/22 08:04 Dose: 60 mg Erythromycin (Erythromycin Op Oint 5 Mg/Gm 3.5 Gm Tube) 1 appln OPB HS [facility] Stop: 11/04/22 20:59 Last Admin: 10/27/22 21:06 Dose: 1 appln Furosemide (Furosemide 80 Mg Tab) 80 mg PO BID17 OFE Stop: 11/24/22 08:59 Last Admin: 10/28/22 08:03 Dose: 80 mg Gabapentin (Gabapentin 300 Mg Cap) 300 mg PO QID [facility] Stop: 11/24/22 08:59 Last Admin: 10/28/22 08:03 Dose: 300 mg Glucagon (Glucagon For Inj 1 Mg Vial) 1 mg SQ UD PRN; Protocol PRN Reason: Hypoglycemia Protocol Stop: 11/24/22 04:07 Glucose (Glucose 10 Tab/Tube) 4 - 8 tab PO UD PRN; Protocol PRN Reason: Hypoglycemia Treatment Stop: 11/24/22 04:07 Glucose (Glucose 40% Gel 15 Gm Tube) 15 - 30 gm PO UD PRN; Protocol PRN Reason: Hypoglycemia Protocol Stop: 11/24/22 04:07 Guaifenesin (Guaifenesin 600 Mg Tabcr) 600 mg PO Q12 OFE Stop: 11/24/22 14:04 Last Admin: 10/28/22 08:03 Dose: 600 mg Doxycycline Hyclate 100 mg/ (Dextrose) 110 mls @ 50 mls/hr IV Q12H OFE Stop: 11/01/22 05:59 Last Infusion: 10/28/22 08:20 Dose: Infused Insulin Aspart (Insulin Aspart Per Unit Charge) 0 units SC ACHS OFE Stop: 11/24/22 04:44 Last Admin: 10/28/22 08:06 Dose: 23 units Insulin Glargine (Lantus Per Unit Charge) 50 units SC DAILY OFE Stop: 11/27/22 08:59 Last Admin: 10/28/22 08:06 Dose: 50 units Lactobacillus Acidophilus (Advanced Probiotic 1250 Mg Capsule) 2 cap PO DAILY OFE Stop: 11/25/22 14:44 Last Admin: 10/28/22 08:04 Dose: 2 cap Levothyroxine Sodium (Levothyroxine Sodium 125 Mcg Tablet) 250 mcg PO DAILYBB OFE Stop: 11/24/22 06:29 Last Admin: 10/28/22 05:55 Dose: 250 mcg Lidocaine (Lidocaine 5% 1 Patch) 1 patch TD DAILY OFE Stop: 11/24/22 08:59 Last Admin: 10/28/22 08:04 Dose: Not Given Loratadine (Loratadine 10 Mg Tab) 20 mg PO DAILY PRN PRN Reason: .allergies Stop: 11/24/22 04:07 Magnesium Oxide (Magnesium Oxide 400 Mg Tab) 400 mg PO DAILY OFE Stop: 11/24/22 08:59 Last Admin: 10/28/22 08:04 Dose: 400 mg Metoprolol Succinate (Metoprolol Succ 50mg Ext Rel Tab) 100 mg PO BID OFE Stop: 11/24/22 08:59 Last Admin: 10/28/22 08:05 Dose: 100 mg Miscellaneous (Carbohydrates For Hypoglycemia ) 15 - 30 gm PO UD PRN PRN Reason: Hypoglycemia Protocol Stop: 11/24/22 04:07 Miscellaneous (Remove Lidoderm Patch) 1 each N/A DAILY@2100 [facility] Stop: 11/24/22 20:59 Last Admin: 10/27/22 21:29 Dose: 1 each Miscellaneous Information (Pharmacy Glycemic Mgmt Consult) 1 each N/A UD PRN PRN Reason: Consult Stop: 11/24/22 04:07 Multivitamins/Minerals (Cerovite Adv Formula Tab) 1 tab PO DAILY OFE Stop: 11/24/22 08:59 Last Admin: 10/28/22 08:04 Dose: 1 tab Naphazoline HCl/Pheniramine Maleate (Naphazolin/Pheniramin Oph Soln 75 Drops/5 Ml Btl) 2 drops OP Q6 PRN PRN Reason: Eye Irritation Stop: 11/24/22 04:07 Nitroglycerin (Nitroglycerin Sl 0.4 Mg/Tab Tab) 0.4 mg SL UD PRN PRN Reason: Chest Pain Stop: 11/24/22 04:07 Nystatin/Triamcinolone Acetonide (Nystatin/Triamcin Oint 15 Gm Tube) 1 appln EXT BID OFE Stop: 11/24/22 08:59 Last Admin: 10/27/22 21:06 Dose: 1 appln Pantoprazole Sodium (Pantoprazole 40 Mg Tab) 40 mg PO QAM OFE Stop: 11/24/22 08:59 Last Admin: 10/28/22 08:03 Dose: 40 mg Polyethylene Glycol (Polyethylene (Miralax) 17 Gm Pack) 17 gm PO DAILY PRN PRN Reason: Constipation Stop: 11/24/22 04:07 Potassium Chloride (Potassium Chloride Crtab 20 Meq Tabcr) 20 meq PO BID OFE Stop: 11/24/22 08:59 Last Admin: 10/28/22 08:03 Dose: 20 meq Potassium Chloride (Potassium Chloride Crtab 20 Meq Tabcr) 20 meq PO NOW STA Stop: 10/28/22 08:50 Sennosides (Senna 8.6 Mg Tab) 8.6 mg PO BID OFE Stop: 11/24/22 08:59 Last Admin: 10/28/22 08:03 Dose: 8.6 mg Spironolactone (Spironolactone 25 Mg Tab) 25 mg PO DAILY OFE Stop: 11/24/22 08:59 Last Admin: 10/28/22 08:04 Dose: 25 mg Vitamin D (Cholecalciferol 1,000 Units 25 Mcg Tab) 2,000 units PO DAILY [facility] Stop: 11/24/22 08:59 Last Admin: 10/28/22 08:04 Dose: 2,000 units
[2022-10-28] MEDS ORDERED: LANTUS PER UNIT CHARGE SC SCH (09:00)
[2022-10-28] MEDS: NYSTATIN/TRIAMCIN OINT 15 GM TUBE EXT SCH (09:40)
--- NOTE | 2022-10-28 12:52 | Dermatology Consultation ---
Date of Consultation October 28, 2022 Assessment & Plan (1) Pustular psoriasis: Dyoe-[id number]-nlojgwbj. Approximately 5% BSA involvement. He is non-toxic without systemic symptoms, and some areas already seem to be showing signs of resolution, particularly the buttocks and mid abdomen. Recommend the followin) Discontinue triamcinolone/nystatin cream. 2) Start betamethasone dipropionate 0.05% cream to active areas twice daily x 2 weeks. I will also send Rx to his outpatient pharmacy so that he can complete a course of treatment upon discharge. 3) Follow-up 2-3 weeks after discharge to check status and adjust regimen as needed based on initial response to treatment. Thank you for the consult. Call with any questions. Present on Admission?: Yes History of Present Illness Reason for Consultation: Rash Requesting Physician: Mitch Acevedo MD Attending Physician: Mitch Acevedo MD History of Present Illness Patient is a 72 y/o male admitted to [facility] from [facility] on 10/25/2022 for pneumonia and rash on the trunk. He has a past medical history significant for type 2 diabetes, stage III chronic kidney disease, hypothyroidism, hyperlipidemia, COPD, CHF, pulmonary hypertension, A-fib, GERD, history of pulmonary embolism and reported psoriasis. He reports that he started breaking out with a rash on the trunk and proximal arms about 4 weeks ago. It was slightly itchy and intermittently sore. It is unclear whether he had any acute illness at that time based on his reported history. He denies any specific treatment for his skin prior to his admission. As mentioned, he was admitted on 10/25/2022 with weakness and symptoms of suspected pneumonia. He is now on treated treatment with Zosyn and doxycycline for his pneumonia. He has been receiving nystatin/triamcinolone cream to areas of rash. He reports that some areas have improved somewhat. He does not think that he is continuing to get any new areas. He is not aware of any family history of psoriasis. He denies any irritation in the mouth or eyes. No other skin complaints today. Allergies Allergy/AdvReac Type Severity Reaction Status Date / Time No Known Allergies Allergy Verified 10/22/22 13:01 Home Medications Medication Instructions Recorded Confirmed Type acetaminophen 325 mg tablet 650 mg PO Q4 PRN Fever Or Pain 06/15/22 10/25/22 History (Tylenol) albuterol sulfate 90 mcg/actuation 2 puff inhalation Q4 PRN Shortness 06/15/22 10/25/22 History aerosol inhaler Of Breath Or Wheezing allopurinol 300 mg tablet 300 mg PO DAILY 06/15/22 10/25/22 History apixaban 5 mg tablet 5 mg PO Q12 06/15/22 10/25/22 History aspirin 81 mg tablet,delayed 81 mg PO DAILY 06/15/22 10/25/22 History release atorvastatin 10 mg tablet 10 mg PO HS 06/15/22 10/25/22 History bupropion HCl 150 mg 24 hr tablet, 150 mg PO QAM 06/15/22 10/25/22 History extended release cholecalciferol (vitamin D3) 25 50 mcg PO DAILY 06/15/22 10/25/22 History mcg (1,000 unit) tablet (Vitamin D3) digoxin 125 mcg (0.125 mg) tablet 125 mcg PO DAILY 06/15/22 10/25/22 History duloxetine 60 mg capsule,delayed 60 mg PO DAILY 06/15/22 10/25/22 History release epinephrine 0.3 mg/0.3 mL 0.3 mg IM DIRECTED PRN Allergic 06/15/22 10/25/22 History injection, auto-injector Reaction erythromycin 5 mg/gram (0.5 %) eye 1 applic OPB HS 06/15/22 10/25/22 History ointment gabapentin 300 mg capsule 300 mg PO QID 06/15/22 10/25/22 History levothyroxine 125 mcg tablet 250 mcg PO DAILY 06/15/22 10/25/22 History lidocaine 5 % topical patch 1 patch topical DAILY 06/15/22 10/25/22 History loratadine 10 mg tablet 20 mg PO DAILY PRN .allergies 06/15/22 10/25/22 History magnesium oxide 420 mg tablet 420 mg PO DAILY 06/15/22 10/25/22 History naphazoline 0.025 %-pheniramine 2 drp ophthalmic (eye) Q6 PRN Eye 06/15/22 10/25/22 History 0.3 % eye drops (Naphcon-A) Irritation nitroglycerin 0.4 mg sublingual 0.4 mg sublingual DIRECTED PRN 06/15/22 10/25/22 History tablet (Nitrostat) Chest Pain nystatin 100,000 unit/gram topical 1 applic topical BID 06/15/22 10/25/22 History powder omeprazole 20 mg capsule,delayed 20 mg PO QAM 06/15/22 10/25/22 History release polyvinyl alcohol-povidone (PF) 1 drp OPB QID 06/15/22 10/25/22 History 1.4 %-0.6 % eye drops in a dropperette (Refresh Classic (PF)) sennosides 8.6 mg tablet (senna) 8.6 mg PO BID 06/15/22 10/25/22 History metoprolol succinate 50 mg 100 mg PO BID #60 tabs 06/23/22 10/25/22 Rx tablet,extended release 24 hr insulin regular human 100 unit/mL 1 sliding scale dose subcut 07/29/22 10/25/22 History (3 mL) subcutaneous pen (Novolin R USEASDIRECTD FlexPen) insulin regular human 100 unit/mL 14 unit (0.14 mL) subcut TIDM #10 08/01/22 10/25/22 Rx injection solution (Novolin R mL Regular U-100 Insulin) potassium chloride 20 mEq 20 meq PO BID #60 tabs 08/01/22 10/25/22 Rx tablet,extended release(part/cryst) insulin glargine 100 unit/mL 60 unit subcut BID 10/12/22 10/25/22 History subcutaneous solution multivitamin with minerals 1 tab PO DAILY 10/12/22 10/25/22 History spironolactone 25 mg tablet 25 mg PO DAILY 10/12/22 10/25/22 History vit C 250 mg-vit E 90 mg-zinc 40 1 tab PO BID 10/12/22 10/25/22 History mg-copper 1 yb-kysiyd-eqrxmg capsule (PreserVision AREDS-2) furosemide 80 mg tablet 80 mg PO BID 10/25/22 10/25/22 History betamethasone dipropionate 0.05 % 1 applic topical BID #45 grams 10/28/22 Rx topical cream Patient History Medical History (Updated 10/28/22 @ 12:52 by Eliseo Gallardo MD) Bifascicular block CAD (coronary artery disease) CKD (chronic kidney disease) stage 3, GFR 30-59 ml/min Claustrophobia COPD, moderate Entropion of left lower eyelid Fatty liver Gout History of fracture Thyroid cartilage in 2019 Interstitial lung disease Nephrolithiasis Osteoarthritis Pustular psoriasis Sarcoidosis possible- evaluated by pulmonary; felt no active sarcoidosis and would not merit steroid therapy given weight/diabetic state. 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 [employer] Pacer check 12/24/17 Status post incision and drainage Family History Mother Cancer Social History Smoking Status: Never smoker Second Hand Exposure: No; Hx Alcohol Use: No Hx Substance Use: No Preferred Language: Bhutanese Communication Ability: Effective Visual Impairment: Limited Hearing Ability: Normal Tack Welder Required: No Beliefs That Will Affect Care: None marital status: Single Current Living Situation: [facility] Current Living Situation Comment: [facility] current occupational status: retired How many Children do You have: 1 How many Children do You have Comment: children are not involved with care much per pt Feels Safe at Home: Yes Safety Concerns: Feels Safe At This Time Diet Comment: FLUID RESTRICTION caffeine: No during the past year weight has: other Physical Activity Frequency: Does not Exercise Gender Identity: Male Assistive Devices: Oxygen - Continuous and Walker Review of Systems Review of Systems: All systems reviewed & are unremarkable except as noted in HPI & below Physical Exam Physical Exam: General Appearance:Well developed, well-nourished and in no acute distress; non-toxic Psych:Alert, Oriented and Appropriate Skin Type:2 Scalp/Hair:no abnormalities noted Face:no abnormalities noted Eyelids/Ocular Mucosa: no abnormalities noted Lips/Teeth/Gums: no abnormalities noted Neck: no abnormalities noted Right Lower Extremity:isolated oval, thin erythematous plaque studded with peripheral pustules on the proximal thigh Left Lower Extremity:no abnormalities noted Back:oval, thin erythematous plaques studded with peripheral pustules on the left mid back, right lower back Buttocks/Groin/Genitalia: well-demarcated, slightly fmwegftcul-kg-autlzgxamufcfn patches with mild desquamating scale at the gluteal cleft, right medial buttock left medial buttock, left inguinal fold, right inguinal fold Right Upper Extremity:fading erythematous, thin plaque with desquamating scale on the upper arm Left Upper Extremity:isolated oval, thin erythematous plaque studded with peripheral pustules on the proximal medial upper arm Chest/Breast/Axillae:no abnormalities noted Abdomen: scattered oval, thin erythematous plaques studded with peripheral pustules Nails: +onychorrhexis involving multiple fingernails bilaterally Results & Data Vital Signs (Past 12 Hours) Vital Signs Temp Pulse Pulse Resp BP BP Pulse Ox 10/28/22 11:20 36.3 C L 78 18 113/79 95 10/28/22 10:38 10/28/22 08:04 36.4 C L 70 20 97/62 L 95 10/28/22 08:05 108/72 10/28/22 07:39 79 10/28/22 03:35 36.4 C L 98 H 18 129/84 94 10/28/22 01:36 88 Pulse Ox Pulse Ox O2 Del Method O2 Flow Rate O2 Flow Rate O2 Flow Rate 10/28/22 11:20 Nasal Cannula 2 10/28/22 10:38 94 92 2 2 10/28/22 08:04 Nasal Cannula 2 10/28/22 08:05 10/28/22 07:39 10/28/22 03:35 Nasal Cannula 2 10/28/22 01:36 Laboratory Results 10/28/22 10/28/22 10/28/22 Range/Units 11:27 07:36 05:42 WBC (4.8-10.8) K/ul RBC (4.70-6.10) M/uL Hgb (14.0-18.0) g/dl Hct (42.0-52.0) % MCV (80.0-100.0) fL MCH (25.0-34.0) pg MCHC (32.0-36.0) g/dL RDW Std Deviation (36.4-46.3) fL RDW Coeff of Baldo (11.5-14.5) % Plt Count (130-400) K/uL MPV (9.4-12.4) fL Sodium 139 (136-145) mmol/L Potassium 3.4 L (3.5-5.1) mmol/L Chloride 99 (98-107) mmol/L Carbon Dioxide 32 (21-32) mmol/L Anion Gap 8 (3-11) BUN 24 H (6-23) mg/dl Creatinine 1.18 (0.6-1.4) mg/dl Est Cr Clr Drug Dosing 85.4 ml/min Est GFR ( Amer) 72.0 ml/min Est GFR (Non-Af Amer) 62.2 ml/min BUN/Creatinine Ratio 20.3 H (10-20) Glucose 130 H (70-99(Fasting)) mg/dl POC Glucose 185 H 149 H (70-99) mg/dl Calcium 9.2 (8.6-10.3) mg/dl Phosphorus 3.3 (2.5-4.9) mg/dl Magnesium 1.7 (1.7-2.4) mg/dl 10/28/22 10/27/22 10/27/22 Range/Units 05:42 20:04 16:23 WBC 7.85 (4.8-10.8) K/ul RBC 4.35 L (4.70-6.10) M/uL Hgb 12.4 L (14.0-18.0) g/dl Hct 38.7 L (42.0-52.0) % MCV 89.0 (80.0-100.0) fL MCH 28.5 (25.0-34.0) pg MCHC 32.0 (32.0-36.0) g/dL RDW Std Deviation 61.1 H (36.4-46.3) fL RDW Coeff of Baldo 18.8 H (11.5-14.5) % Plt Count 152 (130-400) K/uL MPV 11.1 (9.4-12.4) fL Sodium (136-145) mmol/L Potassium (3.5-5.1) mmol/L Chloride (98-107) mmol/L Carbon Dioxide (21-32) mmol/L Anion Gap (3-11) BUN (6-23) mg/dl Creatinine (0.6-1.4) mg/dl Est Cr Clr Drug Dosing ml/min Est GFR ( Amer) ml/min Est GFR (Non-Af Amer) ml/min BUN/Creatinine Ratio (10-20) Glucose (70-99(Fasting)) mg/dl POC Glucose 153 H 199 H (70-99) mg/dl Calcium (8.6-10.3) mg/dl Phosphorus (2.5-4.9) mg/dl Magnesium (1.7-2.4) mg/dl Medications Administered [facility] PG Care Time/CCT Total # of Minutes Spent Total Time Spent with Patient: Total time spent is greater than 50% in coordination of care (as documented) at patient's floor/unit and/or counseling patient: Coding Level of Care Code 32499 INT INP/OBS CARE 1MIN Diagnoses Pustular psoriasis L40.1
[2022-10-28] MEDS: BETAMETHASONE DIP AUG (DIPROLENE) 0.05% CR 15 GM TUBE EXT SCH ×2 (14:13→21:29)
[2022-10-28] MEDS: DIGOXIN 0.125 MG TAB PO SCH (17:10)
[2022-10-28] MEDS: LANTUS PER UNIT CHARGE SC SCH (21:26)
[2022-10-28] MEDS: ERYTHROMYCIN OP OINT 5 MG/GM 3.5 GM TUBE OPB SCH (21:28)
[2022-10-28] MEDS: ATORVASTATIN 10 MG TAB PO SCH (21:30)
[2022-10-29] MEDS: DOXYCYCLINE HYCLATE 100 MG in DEXTROSE 5% 100 ML IV SCH (05:59)
[2022-10-29] MEDS: LEVOTHYROXINE SODIUM 125 MCG TABLET PO SCH (05:59)
[2022-10-29] MEDS: ARTIFICIAL TEARS OP SCH ×2 (08:17→12:14)
[2022-10-29] MEDS: LIDOCAINE 5% 1 PATCH TD SCH (08:17)
[2022-10-29] MEDS: INSULIN ASPART PER UNIT CHARGE SC SCH ×2 (08:17→12:14)
[2022-10-29] MEDS: LANTUS PER UNIT CHARGE SC SCH (08:18)
[2022-10-29] MEDS: METOPROLOL SUCC 50MG EXT REL TAB PO SCH (08:18)
[2022-10-29] MEDS: FUROSEMIDE 80 MG TAB PO SCH (08:19)
[2022-10-29] MEDS: ASPIRIN 81 MG ECTAB PO SCH (08:19)
[2022-10-29] MEDS: GABAPENTIN 300 MG CAP PO SCH ×2 (08:19→12:15)
[2022-10-29] MEDS: DULoxetine HCL 60 MG CAP PO SCH (08:19)
[2022-10-29] MEDS: PANTOprazole 40 MG TAB PO SCH (08:19)
[2022-10-29] MEDS: APIXABAN 5 MG TABLET PO SCH (08:19)
[2022-10-29] MEDS: ADVANCED PROBIOTIC 1250 MG CAPSULE PO SCH (08:19)
[2022-10-29] MEDS: CHOLECALCIFEROL 1,000 UNITS 25 MCG TAB PO SCH (08:19)
[2022-10-29] MEDS: MAGNESIUM OXIDE 400 MG TAB PO SCH (08:19)
[2022-10-29] MEDS: guaiFENesin 600 MG TABCR PO SCH (08:19)
[2022-10-29] MEDS: AMOXICILLIN/CLAVULANATE 875 MG TAB PO SCH (08:19)
[2022-10-29] MEDS: buPROPion XL 150 MG TABCR PO SCH (08:19)
[2022-10-29] MEDS: CEROVITE ADV FORMULA TAB PO SCH (08:19)
[2022-10-29] MEDS: allopurinoL 300 MG TAB PO SCH (08:19)
[2022-10-29] MEDS: SPIRONOLACTONE 25 MG TAB PO SCH (08:20)
[2022-10-29] MEDS: POTASSIUM CHLORIDE CRTAB 20 MEQ TABCR PO SCH (08:20)
[2022-10-29] MEDS: SENNA 8.6 MG TAB PO SCH (08:20)
--- NOTE | 2022-10-29 08:42 | Hospitalist Progress Note ---
Date of Service October 29, 2022 Assessment & Plan (1) Weakness: Plan: This is a 72-year-old male who comes from [facility] with weakness, rash on abdomen and found to have possible pneumonia. 1. Possible pneumonia, left lower lobe possible cause of of weakness. Empirically started on Zosyn and doxycycline. Follow the response. Speech consult for possible aspiration. Guaifenesin, flutter valve, spirometer Overall feels improved but still on suppl. O2 switch from zosyn to augmentin Monitor in the hospital. Overall pt improved. No more weakness. And no suppl. O2. Currently on RA, breathing comfortably , saturating 95%. 2. Erythematous macular rash large patches on abdomen and back. fungal versus bacterial infection versus inflammatory condition. Hx of psoriasis? We empirically placed him on nystain/ triamcinolone cream. Antibiotics as above. Dermatology consulted - pustular psoriasis Toaq-dn-gxhctudg. Approximately 5% BSA involvement. He is non-toxic without systemic symptoms, and some areas already seem to be showing signs of resolution, particularly the buttocks and mid abdomen. Recommend the followin) Discontinue triamcinolone/nystatin cream. 2) Start betamethasone dipropionate 0.05% cream to active areas twice daily x 2 weeks. I will also send Rx to his outpatient pharmacy so that he can complete a course of treatment upon discharge. 3) Follow-up 2-3 weeks after discharge to check status and adjust regimen as needed based on initial response to treatment. 3. Prolonged QTc To avoid Qt prolonging drugs . Follow repeat EKG. 4. History of diabetes: Continue his home Lantus. ISS, Will monitor the blood sugars, current HbA1c 10.8% - uncontrolled - needs outpt follow up. critical care educator consulted, and recommend Novolin-R to be increased from 14 units to 20 units 3 times daily with meals. 5. Chronic systolic and diastolic congestive heart failure: Continue home Lasix, spironolactone and potassium supplements. Monitor for any volume overload. Echo done in 08/2022 shows ejection fraction of 50%. 6. Obstructive sleep apnea, uses oxygen at nighttime. 7. Hypertension, on metoprolol succinate, diuretics. We will monitor blood pressure. 8. Hypothyroidism, on Synthroid. 9. Atrial fibrillation, tachybrady syndrome, status post pacemaker. Digoxin, metoprolol and Eliquis. 10. History of pulmonary embolism, on Eliquis. 11. Gout, on allopurinol. 12. Depression with posttraumatic stress disorder, on duloxetine and bupropion. 13. Chronic diabetic neuropathy, on gabapentin. 14. History of Giant cell arteritis, was on prednisone, currently stopped. 15. History of onychomycosis, was on terbinafine. Follow up with Dermatology. 16. History of right leg wound ulcer, seems to be healing well as per the outpatient wound visit notes. Will consider consult wound care in the hospital. 17. Morbid obesity, needs counseling. 18. Chronic obstructive pulmonary disease, currently stable. 19. Abdominal Pain on admission - possibly from rash? Now resolved/no abd. complaints. Eating ok, having BMs. CT abd/pevis w/o any acute findings. Will monitor. DVT prophylaxis, on Eliquis. DISPOSITION: med tele. PT/OT prior to discharge. Social service to help with discharge planning. Admission and Anticipated Discharge Date Admission Date: October 25, 2022 Subjective Pt seen in follow up of weakness, LLL pna, hypoxia Currently sitting up in bed, in no acute distress No fevers chills, has some cough with grayish sputum now much improved. Overall reports feeling well. No chest pain, no abdominal pain, no nausea vomiting, no diarrhea Currently on RA, breathing comfortably. Review of Systems Review of Systems: All systems reviewed & are unremarkable except as noted in Subjective Physical Exam Physical Exam: GENERAL: The patient is morbidly obese, not in acute distress.on RA HEENT: Pupils equal, round and reactive to light. Oral mucosa moist. NECK: No JVD, no neck masses. CARDIOVASCULAR: S1 and S2 heard. Regular rate and rhythm. No murmur, no gallop. RESPIRATORY: Normal AP diameter. No accessory muscle use. No wheezing, no crackles. ABDOMEN: Soft, bowel sounds present. Mild tenderness. Obese, No guarding. No rigidity. NEURO: Alert and oriented. Speech is clear. No facial droop. Obeys simple commands. Moves extremities. EXTREMITIES: Bilateral lower extremity gross edema seen. SKIN: Erythematous rash seen on the abdomen in patches and also on the lower back (improving). Results & Data Results & Data Vital Signs (Past 12 Hours) Vital Signs Temp Pulse Pulse Resp BP BP Pulse Ox 10/29/22 07:29 36.6 C 89 20 159/77 H 91 10/29/22 03:43 36.7 C 91 H 18 148/76 H 94 10/29/22 00:00 106 H 10/28/22 21:00 10/28/22 22:59 36.5 C 92 H 18 127/76 94 O2 Del Method 10/29/22 07:29 Room Air 10/29/22 03:43 Room Air 10/29/22 00:00 10/28/22 21:00 Room Air 10/28/22 22:59 Room Air Laboratory Results 10/29/22 10/29/22 10/29/22 Range/Units 11:16 08:43 07:57 Sodium 138 (136-145) mmol/L Potassium 4.0 (3.5-5.1) mmol/L Chloride 100 (98-107) mmol/L Carbon Dioxide 32 (21-32) mmol/L Anion Gap 6 (3-11) BUN 23 (6-23) mg/dl Creatinine 1.15 (0.6-1.4) mg/dl Est Cr Clr Drug Dosing 87.1 ml/min Est GFR ( Amer) 74.3 ml/min Est GFR (Non-Af Amer) 64.1 ml/min BUN/Creatinine Ratio 20.0 (10-20) Glucose 165 H (70-99(Fasting)) mg/dl POC Glucose 226 H 175 H (70-99) mg/dl Calcium 9.5 (8.6-10.3) mg/dl Magnesium 1.7 (1.7-2.4) mg/dl 10/28/22 10/28/22 Range/Units 20:12 16:39 Sodium (136-145) mmol/L Potassium (3.5-5.1) mmol/L Chloride (98-107) mmol/L Carbon Dioxide (21-32) mmol/L Anion Gap (3-11) BUN (6-23) mg/dl Creatinine (0.6-1.4) mg/dl Est Cr Clr Drug Dosing ml/min Est GFR ( Amer) ml/min Est GFR (Non-Af Amer) ml/min BUN/Creatinine Ratio (10-20) Glucose (70-99(Fasting)) mg/dl POC Glucose 137 H 135 H (70-99) mg/dl Calcium (8.6-10.3) mg/dl Magnesium (1.7-2.4) mg/dl Medications Administered Current Inpatient Medications Acetaminophen (Acetaminophen 325 Mg Tab) 650 mg PO Q4H PRN PRN Reason: Pain or Fever Stop: 11/24/22 04:07 Last Admin: 10/28/22 05:59 Dose: 650 mg Albuterol (Albuterol Hfa 8 Gm Inhaler) 2 puffs INH Q4 PRN PRN Reason: Shortness Of Breath Or Wheezin Stop: 11/24/22 04:07 Allopurinol (Allopurinol 300 Mg Tab) 300 mg PO DAILY OFE Stop: 11/24/22 08:59 Last Admin: 10/29/22 08:19 Dose: 300 mg Amoxicillin/Clavulanate Potassium (Amoxicillin/Clavulanate 875 Mg Tab) 1 tab PO BIDM [facility] Stop: 11/03/22 16:59 Last Admin: 10/29/22 08:19 Dose: 1 tab Apixaban (Apixaban 5 Mg Tablet) 5 mg PO Q12 OFE Stop: 11/24/22 08:59 Last Admin: 10/29/22 08:19 Dose: 5 mg Artificial Tears (Artificial Tears) 1 drops OP QID OFE Stop: 11/24/22 08:59 Last Admin: 10/29/22 08:17 Dose: 1 drops Aspirin (Aspirin 81 Mg Ectab) 81 mg PO DAILY [facility] Stop: 11/24/22 08:59 Last Admin: 10/29/22 08:19 Dose: 81 mg Atorvastatin Calcium (Atorvastatin 10 Mg Tab) 10 mg PO HS [facility] Stop: 11/24/22 20:59 Last Admin: 10/28/22 21:30 Dose: 10 mg Betamethasone Dipropion Augmented (Betamethasone Dip Aug (Diprolene) 0.05% Cr 15 Gm Tube) 1 appln EXT BID [facility] Stop: 11/27/22 12:47 Last Admin: 10/28/22 21:29 Dose: 1 appln Bupropion HCl (Bupropion Xl 150 Mg Tabcr) 150 mg PO QAM [facility] Stop: 11/24/22 08:59 Last Admin: 10/29/22 08:19 Dose: 150 mg Dextrose (Dextrose 50% 50 Ml Syringe) 25 - 50 ml IV UD PRN; Protocol PRN Reason: Hypoglycemia Protocol Stop: 11/24/22 04:07 Digoxin (Digoxin 0.125 Mg Tab) 0.125 mg PO DAILY@1600 [facility] Stop: 11/24/22 15:59 Last Admin: 10/28/22 17:10 Dose: 0.125 mg Duloxetine HCl (Duloxetine Hcl 60 Mg Cap) 60 mg PO DAILY OF[facility] Stop: 11/24/22 08:59 Last Admin: 10/29/22 08:19 Dose: 60 mg Erythromycin (Erythromycin Op Oint 5 Mg/Gm 3.5 Gm Tube) 1 appln OPB HS OFE Stop: 11/04/22 20:59 Last Admin: 10/28/22 21:28 Dose: 1 appln Furosemide (Furosemide 80 Mg Tab) 80 mg PO BID17 OFE Stop: 11/24/22 08:59 Last Admin: 10/29/22 08:19 Dose: 80 mg Gabapentin (Gabapentin 300 Mg Cap) 300 mg PO QID OFE Stop: 11/24/22 08:59 Last Admin: 10/29/22 08:19 Dose: 300 mg Glucagon (Glucagon For Inj 1 Mg Vial) 1 mg SQ UD PRN; Protocol PRN Reason: Hypoglycemia Protocol Stop: 11/24/22 04:07 Glucose (Glucose 10 Tab/Tube) 4 - 8 tab PO UD PRN; Protocol PRN Reason: Hypoglycemia Treatment Stop: 11/24/22 04:07 Glucose (Glucose 40% Gel 15 Gm Tube) 15 - 30 gm PO UD PRN; Protocol PRN Reason: Hypoglycemia Protocol Stop: 11/24/22 04:07 Guaifenesin (Guaifenesin 600 Mg Tabcr) 600 mg PO Q12 OFE Stop: 11/24/22 14:04 Last Admin: 10/29/22 08:19 Dose: 600 mg Doxycycline Hyclate 100 mg/ (Dextrose) 110 mls @ 50 mls/hr IV Q12H OFE Stop: 11/01/22 05:59 Last Infusion: 10/29/22 08:30 Dose: Infused Insulin Aspart (Insulin Aspart Per Unit Charge) 0 units SC ACHS [facility] Stop: 11/24/22 04:44 Last Admin: 10/29/22 08:17 Dose: 25 units Insulin Glargine (Lantus Per Unit Charge) 60 units SC BID OF[facility] Stop: 11/27/22 08:59 Last Admin: 10/29/22 08:27 Dose: 10 units Lactobacillus Acidophilus (Advanced Probiotic 1250 Mg Capsule) 2 cap PO DAILY [facility] Stop: 11/25/22 14:44 Last Admin: 10/29/22 08:19 Dose: 2 cap Levothyroxine Sodium (Levothyroxine Sodium 125 Mcg Tablet) 250 mcg PO DAILYBB [facility] Stop: 11/24/22 06:29 Last Admin: 10/29/22 05:59 Dose: 250 mcg Lidocaine (Lidocaine 5% 1 Patch) 1 patch TD DAILY [facility] Stop: 11/24/22 08:59 Last Admin: 10/29/22 08:17 Dose: Not Given Loratadine (Loratadine 10 Mg Tab) 20 mg PO DAILY PRN PRN Reason: .allergies Stop: 11/24/22 04:07 Magnesium Oxide (Magnesium Oxide 400 Mg Tab) 400 mg PO DAILY [facility] Stop: 11/24/22 08:59 Last Admin: 10/29/22 08:19 Dose: 400 mg Metoprolol Succinate (Metoprolol Succ 50mg Ext Rel Tab) 100 mg PO BID [facility] Stop: 11/24/22 08:59 Last Admin: 10/29/22 08:18 Dose: 100 mg Miscellaneous (Carbohydrates For Hypoglycemia ) 15 - 30 gm PO UD PRN PRN Reason: Hypoglycemia Protocol Stop: 11/24/22 04:07 Miscellaneous (Remove Lidoderm Patch) 1 each N/A DAILY@2100 [facility] Stop: 11/24/22 20:59 Last Admin: 10/28/22 21:29 Dose: Not Given Miscellaneous Information (Pharmacy Glycemic Mgmt Consult) 1 each N/A UD PRN PRN Reason: Consult Stop: 11/24/22 04:07 Multivitamins/Minerals (Cerovite Adv Formula Tab) 1 tab PO DAILY [facility] Stop: 11/24/22 08:59 Last Admin: 10/29/22 08:19 Dose: 1 tab Naphazoline HCl/Pheniramine Maleate (Naphazolin/Pheniramin Oph Soln 75 Drops/5 Ml Btl) 2 drops OP Q6 PRN PRN Reason: Eye Irritation Stop: 11/24/22 04:07 Nitroglycerin (Nitroglycerin Sl 0.4 Mg/Tab Tab) 0.4 mg SL UD PRN PRN Reason: Chest Pain Stop: 11/24/22 04:07 Pantoprazole Sodium (Pantoprazole 40 Mg Tab) 40 mg PO QAM [facility] Stop: 11/24/22 08:59 Last Admin: 10/29/22 08:19 Dose: 40 mg Polyethylene Glycol (Polyethylene (Miralax) 17 Gm Pack) 17 gm PO DAILY PRN PRN Reason: Constipation Stop: 11/24/22 04:07 Last Admin: 10/28/22 17:52 Dose: 17 gm Potassium Chloride (Potassium Chloride Crtab 20 Meq Tabcr) 20 meq PO BID OFE Stop: 11/24/22 08:59 Last Admin: 10/29/22 08:20 Dose: 20 meq Sennosides (Senna 8.6 Mg Tab) 8.6 mg PO BID OFE Stop: 11/24/22 08:59 Last Admin: 10/29/22 08:20 Dose: 8.6 mg Spironolactone (Spironolactone 25 Mg Tab) 25 mg PO DAILY OFE Stop: 11/24/22 08:59 Last Admin: 10/29/22 08:20 Dose: 25 mg Vitamin D (Cholecalciferol 1,000 Units 25 Mcg Tab) 2,000 units PO DAILY OFE Stop: 11/24/22 08:59 Last Admin: 10/29/22 08:19 Dose: 2,000 units
[2022-10-29] MEDS ORDERED: LANTUS PER UNIT CHARGE SC SCH (09:00)
[2022-10-29 09:21] LABS: Calcium 9.5 mg/dl (8.6-10.3); Creatinine Clr Calc Pharmacy 87.1 ml/min; Est GFR (African American) 74.3 ml/min; Est GFR (Non-African American) 64.1 ml/min; Magnesium 1.7 mg/dl (1.7-2.4)
[2022-10-29] MEDS: BETAMETHASONE DIP AUG (DIPROLENE) 0.05% CR 15 GM TUBE EXT SCH (09:32)
--- NOTE | 2022-10-29 13:48 | Pharmacy Report ---
Pharmacy Glycemic Short Note 2 - Date of Service October 29, 2022 - Glycemic Short BSG Results (Last 24 hours): 10/28/22 10/28/22 10/29/22 16:39 20:12 07:57 Glucose POC Glucose 135 H 137 H 175 H 10/29/22 10/29/22 08:43 11:16 Glucose 165 H POC Glucose 226 H OUTPATIENT ANTIDIABETIC REGIMEN: * Lantus 60 units SQ BID * Novolog 14 units TID with meals + SS * A1c = 10.8% ASSESSMENT: 10/29: * BSG's yesterday: [phone] mg/dL. * Patient received 100 units of basal insulin and 63 units of bolus insulin yesterday (163 total units). * Fasting BSG today 175 mg/dL. Patient may benefit from a ~20% increase to total daily basal dose to achieve fasting BSG closer to goal range. Patient received 110 units of basal 10/27 and fasting BSG following morning was 149 mg/dL. * Lunchtime BSG 226 mg/dL today. First value > 200 mg/dL since patient was started on 12-2.5 NovoLog parameters for all ACHS checks on 10/27. 10/27: * BSG's throughout the day yesterday recorded at [phone]. BSG 197-204 mg/dL on overnight checks. Today, 182 mg/dL AM fasting and 258 mg/dL at lunch. * Patient received 130 units of basal insulin and 75 units of bolus insulin yesterday. * No new stressors, T2DM diet continued. * Patient may benefit from tightened carb ratio to control elevated postprandial BSG's. 10/26/22: * Marcial is a 72 yo T2DM admitted with weakness, rash on abdomen and concern for pneumonia. * He is known to the glycemic service from past admissions. During these admissions, he was on variable amounts of insulin (80-240 units/day) and commo nly receiving steroids at the same time. * He received 120 units of Lantus yesterday. Fasting BSG improving but remains quite elevated. Will increase Lantus scale. * Lunch BSG of 281 mg/dL. Persistent post prandial hyperglycemia yesterday. Will tighten CF and CR. PLAN FOR INPATIENT GLYCEMIC CONTROL: * Hold outpatient oral diabetes medications * Basal insulin * Lantus 60 units SQ BID * Bolus insulin * NovoLog per scale ACHS or Q6hrs while NPO * Goal Range: Low 110 mg/dL - High 150 mg/dL * Correction Factor: 12 mg/dL/unit * Nutritional / Prandial insulin per carb ratio of 1 unit per 2.5 grams CHO consumed
--- NOTE | 2022-10-29 13:52 | Pharmacy Report ---
Pharmacy Glycemic Short Note 2 - Date of Service October 29, 2022 - Glycemic Short BSG Results (Last 24 hours): 10/28/22 10/28/22 10/29/22 16:39 20:12 07:57 Glucose POC Glucose 135 H 137 H 175 H 10/29/22 10/29/22 08:43 11:16 Glucose 165 H POC Glucose 226 H OUTPATIENT ANTIDIABETIC REGIMEN: * Lantus 60 units SQ BID * Novolog 14 units TID with meals + SS * A1c = 10.8% ASSESSMENT: 10/29: * BSG's yesterday: [phone] mg/dL. * Patient received 100 units of basal insulin and 63 units of bolus insulin yesterday (163 total units). * Fasting BSG today 175 mg/dL. Patient may benefit from a ~20% increase to total daily basal dose to achieve fasting BSG closer to goal range. Patient received 110 units of basal 10/27 and fasting BSG following morning was 149 mg/dL. * Lunchtime BSG 226 mg/dL today. First value > 200 mg/dL since patient was started on 12-2.5 NovoLog parameters for all ACHS checks on 10/27. * Lunchtime BSG's may demonstrate improvement if carbohydrate ratio tightened at breakfast. 10/27: * BSG's throughout the day yesterday recorded at [phone]. BSG 197-204 mg/dL on overnight checks. Today, 182 mg/dL AM fasting and 258 mg/dL at lunch. * Patient received 130 units of basal insulin and 75 units of bolus insulin yesterday. * No new stressors, T2DM diet continued. * Patient may benefit from tightened carb ratio to control elevated postprandial BSG's. 10/26/22: * Marcial is a 72 yo T2DM admitted with weakness, rash on abdomen and concern for pneumonia. * He is known to the glycemic service from past admissions. During these admissions, he was on variable amounts of insulin (80-240 units/day) and commonly receiving steroids at the same time. * He received 120 units of Lantus yesterday. Fasting BSG improving but remains quite elevated. Will increase Lantus scale. * Lunch BSG of 281 mg/dL. Persistent post prandial hyperglycemia yesterday. Will tighten CF and CR. PLAN FOR INPATIENT GLYCEMIC CONTROL: * Hold outpatient oral diabetes medications * Basal insulin * Lantus 60 units SQ BID * Bolus insulin * NovoLog per scale ACHS or Q6hrs while NPO * Goal Range: Low 110 mg/dL - High 150 mg/dL * Correction Factor: 12 mg/dL/unit * Nutritional / Prandial insulin per carb ratio of 1 unit per 2.5 grams CHO consumed (1 unit per 2 grams CHO at breakfast only).
--- NOTE | 2022-10-29 14:17 | Discharge Summary ---
Date of Service October 29, 2022 Admission HPI Per Admitting Provider A 72-year-old male with past medical history significant for type 2 diabetes, chronic kidney disease stage III, acquired autoimmune hypothyroidism, hyperlipidemia, diabetic retinopathy, peripheral neuropathy, COPD, sleep apnea, uses oxygen in the nighttime, chronic combined systolic and diastolic CHF, pulmonary hypertension, chronic right sided heart failure, abdominal aortic atherosclerosis, paroxysmal atrial fibrillation, status post cardiac pacemaker, tachybrady syndrome, morbid obesity, GERD, gout, osteoarthritis, carpal tunnel syndrome, history of cellulitis of the finger, psoriasis, moderate episode of re current major depressive disorder, history of pulmonary embolism, MRSA colonization, tremor, posttraumatic stress disorder, recurrent falls, history of COVID-19. The patient lives at [facility], presents with weakness, rash on his abdomen, some abdominal pain and found to have pneumonia on the imaging studies. Resting comfortably, hemodynamically stable. He has a rash developed on his abdomen and back about a month ago, seems to have some itching, some tenderness. Denies any nausea or vomiting. No fevers, no cough, no chest pain, no shortness of breath, no headache, no blurred visions, no earache, no runny nose, no sore throat. Appetite is okay. No diarrhea or constipation. No blood in stool or black stools. Normal micturition. Hemodynamically stable. Admission Exam Per Admitting Provider GENERAL: The patient is morbidly obese, not in acute distress. VITAL SIGNS: Temperature 37, pulse 105, respiratory rate 24, blood pressure 126/65, oxygen 92% on oxygen nasal cannula. HEENT: Pupils equal, round and reactive to light. Oral mucosa moist. NECK: No JVD, no neck masses. CARDIOVASCULAR: S1 and S2 heard. Regular rate and rhythm. No murmur, no gallop. RESPIRATORY SYSTEM: Normal AP diameter. No accessory muscle use. No wheezing, no crackles. ABDOMEN: Soft, bowel sounds present. Mild tenderness. No guarding. No rigidity. No distention. CENTRAL NERVOUS SYSTEM: Alert and oriented. Speech is clear. No facial droop. Obeys simple commands. Moves extremities. EXTREMITIES: Bilateral lower extremity gross edema seen. SKIN: Erythematous macular rash seen on the abdomen in patches and also on the lower back. Principal Diagnosis Weakness, secondary to pneumonia Pustular psoriasis Discharge Exam GENERAL: The patient is morbidly obese, not in acute distress.on RA HEENT: Pupils equal, round and reactive to light. Oral mucosa moist. NECK: No JVD, no neck masses. CARDIOVASCULAR: S1 and S2 heard. Regular rate and rhythm. No murmur, no gallop. RESPIRATORY: Normal AP diameter. No accessory muscle use. No wheezing, no crackles. ABDOMEN: Soft, bowel sounds present. Mild tenderness. Obese, No guarding. No rigidity. NEURO: Alert and oriented. Speech is clear. No facial droop. Obeys simple commands. Moves extremities. EXTREMITIES: Bilateral lower extremity gross edema seen. SKIN: Erythematous rash seen on the abdomen in patches and also on the lower back (improving). Discharge Data Allergies Allergy/AdvReac Type Severity Reaction Status Date / Time No Known Allergies Allergy Verified 10/22/22 13:01 Consultations 10/24/22 22:30 ED Decision to Admit Stat 10/25/22 09:00 Consult Dermatology Routine Ordered Studies 10/24/22 20:12 CT Abd and Pelvis [CT abd pelvis wo con] Stat FINDINGS: There are partially imaged cardiac pacer leads. There is stable cardiomegaly. There is a consolidation in the left lower lobe compatible with pneumonia. Patient is status post cholecystectomy. Again seen is a small gallbladder remnant containing a few calcified stones. There is no biliary dilatation. Liver is enlarged but otherwise unremarkable. There is stable splenomegaly measuring 16.5 cm. Pancreas and adrenal glands are unremarkable. Kidneys are similar in size and contour, without hydronephrosis or radiopaque stones. There is mild aortoiliac atherosclerosis without aneurysm. There is no bowel obstruction or inflammation. Visualized portions of the appendix are normal. Prostate is small in size. Urinary bladder is normal. There are postoperative changes of the anterior abdominal wall. Mild anasarca is noted. There are no acute osseous findings. IMPRESSION: 1. Left lower lobe pneumonia. Imaging follow-up to resolution recommended. 2. No acute intra-abdominal process. Diabetes Follow up Diabetes Follow-up Needed for HgbA1c >9% Hospital Course (1) Weakness: This is a 72-year-old male who comes from [facility] with weakness, rash on abdomen and found to have possible pneumonia. 1. Pneumonia, left lower lobe , possible aspiration pna, likely cause of of weakness. Empirically started on Zosyn and doxycycline. Follow the response. Speech consult for possible aspiration. Guaifenesin, flutter valve, spirometer Overall feels improved switched from zosyn to augmentin Monitor in the hospital. Overall pt improved. No more weakness. And no suppl. O2. Currently on RA, breathing comfortably , saturating 95%. 2. Erythematous macular rash large patches on abdomen and back. fungal versus bacterial infection versus inflammatory condition. Hx of psoriasis? We empirically placed him on nystain/ triamcinolone cream. Antibiotics as above. Dermatology consulted - pustular psoriasis [id number]. Approximately 5% BSA involvement. He is non-toxic without systemic symptoms, and some areas already seem to be showing signs of resolution, particularly the buttocks and mid abdomen. Recommend the followin) Discontinue triamcinolone/nystatin cream. 2) Start betamethasone dipropionate 0.05% cream to active areas twice daily x 2 weeks. I will also send Rx to his outpatient pharmacy so that he can complete a course of treatment upon discharge. 3) Follow-up 2-3 weeks after discharge to check status and adjust regimen as needed based on initial response to treatment. 3. Prolonged QTc To avoid Qt prolonging drugs . Follow repeat EKG. 4. History of diabetes: Continue his home Lantus. ISS, Will monitor the blood sugars, current HbA1c 10.8% - uncontrolled - needs outpt follow up. telehealth nurse educator consulted, and recommend Novolin-R to be increased from 14 units to 20 units 3 times daily with meals. 5. Chronic systolic and diastolic congestive heart failure: Continue home Lasix, spironolactone and potassium supplements. Monitor for any volume overload. Echo done in 08/2022 shows ejection fraction of 50%. 6. Obstructive sleep apnea, uses oxygen at nighttime. 7. Hypertension, on metoprolol succinate, diuretics. We will monitor blood pressure. 8. Hypothyroidism, on Synthroid. 9. Atrial fibrillation, tachybrady syndrome, status post pacemaker. Digoxin, metoprolol and Eliquis. 10. History of pulmonary embolism, on Eliquis. 11. Gout, on allopurinol. 12. Depression with posttraumatic stress disorder, on duloxetine and bupropion. 13. Chronic diabetic neuropathy, on gabapentin. 14. History of Giant cell arteritis, was on prednisone, currently stopped. 15. History of onychomycosis, was on terbinafine. Follow up with Dermatology. 16. History of right leg wound ulcer, seems to be healing well as per the outpatient wound visit notes. Will consider consult wound care in the hospital. 17. Morbid obesity, needs counseling. 18. Chronic obstructive pulmonary disease, currently stable. 19. Abdominal Pain on admission - possibly from rash? Now resolved/no abd. complaints. CT abd/pevis w/o any acute findings. Total Time Total Time Spent Total Time Spent (In Minutes): 40 Discharge Plan Discharge Items Patient Disposition: Personal Snf Reason For Visit: WEAKNESS Discharge Diagnosis: Weakness, secondary to pneumonia Pustular psoriasis Activity: Per Instructions section Non-emergency contact: Primary Care Provider and Specialist Call non-emergency contact if: you have any medication questions and your sympto ms worsen Follow-up/Referrals: [facility] [employer] [Primary Care Provider] - Eliseo Gallardo MD [Physician] - (The [facility] dermatology office will call you with an appointment.) Diet: Carb Consistent or DM2 and Heart Healthy Diet Texture: Easy to Chew Addtl Attending Provider Instructions: Follow-up with primary care physician, you should see primary care physician within 1 week. Continue antibiotic treatment with Augmentin, and doxycycline, as prescribed. Recommend taking probiotics while on antibiotic, to prevent any stomach upset. Continue using guaifenesin, flutter valve and incentive spirometer. You were seen by racecourse barrier attendant, and prescribed steroid (Betamethasone ) cream for your psoriasis rash. Use this twice a day, for 2 weeks. You will need to follow-up with dermatology in 2 to 3 weeks. Your hemoglobin A1c was elevated, at 10.8% which means your blood sugar level is not well controlled. It was recommended that your NovolinR (meal insulin) is increased to 20 units 3 times a day, with meals. Follow-up further with your primary care physician regarding your diabetes. Pending Studies at Discharge: No Stand-Alone Forms: My EDAN, Smoking Cessation Skilled Items Patient informed of condition?: Yes DNR: No Discharge Level of Care: Other Communicable Disease: No Discharge Prognosis: Stable Lines: None Urinary Catheter: No Medications and DC Order Prescriptions: New amoxicillin-pot clavulanate 875-125 mg Tablet 1 tab PO BID 5 Days Qty: 10 0RF doxycycline hyclate 100 mg Capsule 100 mg PO Q12H 5 Days Qty: 10 0RF Advanced Probiotic 625 mg (10 billion cell) Capsule 2 cap PO DAILY Qty: 10 0RF guaifenesin [Mucinex] 600 mg Tablet Extended Release 12hr 600 mg PO Q12 Qty: 14 0RF Continued betamethasone dipropionate 0.05 % cream 1 applic topical BID Qty: 45 1RF Rx Instructions: Apply to areas of the back, buttocks and abdomen twice daily x 2 weeks as directed. Novolin R FlexPen 100 unit/mL (3 mL) Insulin Pen 1 sliding scale dose SUBCUT USEASDIRECTD potassium chloride 20 mEq tablet,ER particles/crystals 20 meq PO BID Qty: 60 0RF insulin glargine 100 unit/mL Solution 60 unit SUBCUT BID spironolactone 25 mg tablet 25 mg PO DAILY PreserVision AREDS-2 250-90-40-1 mg Capsule 1 tab PO BID multivitamin with minerals Tablet 1 tab PO DAILY furosemide 80 mg Tablet 80 mg PO BID sennosides [senna] 8.6 mg Tablet 8.6 mg PO BID acetaminophen [Tylenol] 325 mg Tablet 650 mg PO Q4 PRN (Reason: Fever Or Pain) magnesium oxide 420 mg Tablet 420 mg PO DAILY aspirin 81 mg Tablet,Delayed Release (Dr/Ec) 81 mg PO DAILY erythromycin 5 mg/gram (0.5 %) ointment 1 applic OPB HS Rx Instructions: 1/2 inch ribbon to right and left lower eyelids at bedtime levothyroxine 125 mcg Tablet 250 mcg PO DAILY lidocaine 5 % Adhesive Patch,Medicated 1 patch TOPICAL DAILY Rx Instructions: leave on most painful area for up to 12 hrs, then take off nitroglycerin [Nitrostat] 0.4 mg Tablet, Sublingual 0.4 mg sublingual DIRECTED PRN (Reason: Chest Pain) digoxin 125 mcg (0.125 mg) Tablet 125 mcg PO DAILY Rx Instructions: 1800 nystatin 100,000 unit/gram Powder 1 applic TOPICAL BID epinephrine 0.3 mg/0.3 mL Auto-Injector 0.3 mg IM DIRECTED PRN (Reason: Allergic Reaction) albuterol sulfate 90 mcg/actuation Hfa Aerosol Inhaler 2 puff INHALATION Q4 PRN (Reason: Shortness Of Breath Or Wheezing) Naphcon-A 0.025-0.3 % Drops 2 drp OPHTHALMIC (EYE) Q6 PRN (Reason: Eye Irritation) loratadine 10 mg Tablet 20 mg PO DAILY PRN (Reason: .allergies) Refresh Classic (PF) 1.4-0.6 % Dropperette 1 drp OPB QID duloxetine 60 mg capsule,delayed release(DR/EC) 60 mg PO DAILY cholecalciferol (vitamin D3) [Vitamin D3] 25 mcg (1,000 unit) Tablet 50 mcg PO DAILY apixaban 5 mg Tablet 5 mg PO Q12 atorvastatin 10 mg tablet 10 mg PO HS gabapentin 300 mg capsule 300 mg PO QID omeprazole 20 mg capsule,delayed release(DR/EC) 20 mg PO QAM allopurinol 300 mg tablet 300 mg PO DAILY bupropion HCl 150 mg tablet extended release 24 hr 150 mg PO QAM metoprolol succinate 50 mg Tablet Extended Release 24 Hr 100 mg PO BID Qty: 60 0RF Changed Novolin R Regular U-100 Insuln 100 unit/mL solution 20 unit subcut TIDM Qty: 10 0RF Discharge Orders: Discharge Order (Routine); Ordered 10/29/22 Ordered By: Mitch Acevedo Admission Data Admit Date/Time: 10/25/22 01:20 Attending Provider: Mitch Acevedo Admit Provider: Mohit Newton [facility] [employer] Other Providers: Mohit Newton
[2022-10-29] MEDS ORDERED: INSULIN ASPART PER UNIT CHARGE SC SCH (16:30)
[2022-10-29] MEDS ORDERED: DOXYCYCLINE HYCLATE 100 MG CAP PO SCH (18:00)
[2022-10-30] MEDS ORDERED: INSULIN ASPART PER UNIT CHARGE SC SCH (07:30)
== END 2022-10-29 15:25 | disposition home health service (06) | DRG 178 ==
LOC: ED 19:48 → 2W 10-25 01:20

== ENCOUNTER 2022-11-09 09:55 | Inpatient (IN) ==
[2022-11-09 12:12] LABS: Basophils # (auto) 0.06 K/uL (0-0.2); Basophils % (auto) 0.9 %; Eosinophils # (auto) 0.06 K/uL (0-0.50); Eosinophils % (auto) 0.9 %; Hemoglobin 12.1 g/dl (14.0-18.0); Immature Granulocytes # (auto) 0.03 K/uL (0.01-0.20); Immature Granulocytes % (auto) 0.5 %; Lymphocytes # (auto) 1.04 K/uL (1.2-3.4); Mean Corpuscular Hemoglobin 28.1 pg (25.0-34.0); Mean Corpuscular Hgb Conc 31.8 g/dL (32.0-36.0); Mean Corpuscular Volume 88.2 fL (80.0-100.0); Mean Platelet Volume 11.5 fL (9.4-12.4); Monocytes # (auto) 0.65 K/uL (0.11-0.59); Neutrophils # (auto) 4.64 K/uL (1.40-6.50); Neutrophils % (auto) 71.7 %; Platelet Count 179 K/uL (130-400); RDW Coefficient of Variation 18.5 % (11.5-14.5); RDW Standard Deviation 59.4 fL (36.4-46.3); Red Blood Count 4.31 M/uL (4.70-6.10); White Blood Count 6.48 K/ul (4.8-10.8)
--- NOTE | 2022-11-09 12:41 | XRay Report ---
XR chest 1V portable HISTORY: fall abd pain COMPARISON: Chest 10/24/2022. FINDINGS: No pneumothorax. The heart remains enlarged. There is left-sided dual-chamber pacemaker. In terstitial/vascular thickening persists and is consistent with mild congestive change. No new focal l sonia consolidations to suggest a pneumonia. There are trace bilateral pleural effusions. There are old , healed right-sided rib fractures again noted. IMPRESSION: Cardiomegaly with mild congestive change and trace bilateral pleural effusions. This is similar to th e prior study. ACT 112: Negative or not required by law. Electronically signed by: Stan Lopez M.D. 11/09/2022 12:40 PM
--- NOTE | 2022-11-09 12:47 | XRay Report ---
XR pelvis 1-2V routine CLINICAL HISTORY: Fall. Pelvic pain. COMPARISON STUDY: None. FINDINGS: Abnormal appearance to the left femoral head neck junction which is concerning for a nondis placed fracture. Otherwise, no acute fracture or dislocation within the pelvis or right hip. Suture m aterial seen within the left lower quadrant. IMPRESSION: Possible nondisplaced fracture within the left femoral neck. This will be better appreci ated on the same day abdomen and pelvis CT ACT 112: Negative or not required by law. Electronically signed by: Stan Lopez M.D. 11/09/2022 12:46 PM
[2022-11-09 12:51] LABS: Appearance Urine Clear (Clear); Bilirubin Urine Negative (Negative); Blood Urine Negative (Negative); Color Urine Yellow; Glucose Urine UA 2+ (Negative); Ketones Urine Negative (Negative); Leukocyte Esterase Urine Negative (Negative); Nitrite Urine Negative (Negative); Protein Urine Negative (Negative); Specific Gravity Urine 1.009 (1.000-1.030); Urobilinogen Urine Negative (Negative)
[2022-11-09 12:56] LABS: INR 1.2 (0.9-1.1); Partial Thromboplastin Ratio 1.2; Prothrombin Time 12.9 Seconds (9.0-12.0)
[2022-11-09 13:09] LABS: BUN Creatinine Ratio 15.2 (10-20); Calcium 9.2 mg/dl (8.6-10.3); Creatinine Clr Calc Pharmacy 77.3 ml/min; Est GFR (African American) 62.9 ml/min; Est GFR (Non-African American) 54.3 ml/min; Magnesium 1.8 mg/dl (1.7-2.4); Potassium 3.4 mmol/L (3.5-5.1); Troponin I High Sensitivity 14.8 pg/ml (0-20)
[2022-11-09] MEDS ORDERED: OPTIRAY 320 500ml IV ONE (14:02)
--- NOTE | 2022-11-09 14:35 | Emergency Department Note ---
History of Present Illness General Chief complaint: Fall Stated complaint: HYPERGLYCEMIA, FALLS, WEAKNESS Time Seen by Provider: 11/09/22 10:01 History of Present Illness Provider complaint: Recurrent falls 72-year-old male presents emergency department for recurrent falls. Patient also reports his sugars have been running high. Patient is reporting pain in his head status post his most recent fall. Patient on blood thinners. Home Medications Medication Instructions Recorded Confirmed Type acetaminophen 325 mg tablet 650 mg PO Q4 PRN Fever Or Pain 06/15/22 11/09/22 History (Tylenol) albuterol sulfate 90 mcg/actuation 2 puff inhalation Q4 PRN Shortness 06/15/22 11/09/22 History aerosol inhaler Of Breath Or Wheezing allopurinol 300 mg tablet 300 mg PO DAILY 06/15/22 11/09/22 History apixaban 5 mg tablet 5 mg PO Q12 06/15/22 11/09/22 History aspirin 81 mg tablet,delayed 81 mg PO DAILY 06/15/22 11/09/22 History release atorvastatin 10 mg tablet 10 mg PO HS 06/15/22 11/09/22 History bupropion HCl 150 mg 24 hr tablet, 150 mg PO QAM 06/15/22 11/09/22 History extended release cholecalciferol (vitamin D3) 25 50 mcg PO DAILY 06/15/22 11/09/22 History mcg (1,000 unit) tablet (Vitamin D3) digoxin 125 mcg (0.125 mg) tablet 125 mcg PO DAILY 06/15/22 11/09/22 History duloxetine 60 mg capsule,delayed 60 mg PO DAILY 06/15/22 11/09/22 History release epinephrine 0.3 mg/0.3 mL 0.3 mg IM DIRECTED PRN Allergic 06/15/22 11/09/22 History injection, auto-injector Reaction erythromycin 5 mg/gram (0.5 %) eye 1 applic OPB HS 06/15/22 11/09/22 History ointment gabapentin 300 mg capsule 300 mg PO QID 06/15/22 11/09/22 History levothyroxine 125 mcg tablet 250 mcg PO DAILY 06/15/22 11/09/22 History lidocaine 5 % topical patch 1 patch topical DAILY 06/15/22 11/09/22 History loratadine 10 mg tablet 20 mg PO DAILY PRN .allergies 06/15/22 11/09/22 History magnesium oxide 420 mg tablet 420 mg PO DAILY 06/15/22 11/09/22 History naphazoline 0.025 %-pheniramine 2 drp ophthalmic (eye) Q6 PRN Eye 06/15/22 11/09/22 History 0.3 % eye drops (Naphcon-A) Irritation nitroglycerin 0.4 mg sublingual 0.4 mg sublingual DIRECTED PRN 06/15/22 11/09/22 History tablet (Nitrostat) Chest Pain nystatin 100,000 unit/gram topical 1 applic topical BID 06/15/22 11/09/22 History powder omeprazole 20 mg capsule,delayed 20 mg PO QAM 06/15/22 11/09/22 History release polyvinyl alcohol-povidone (PF) 1 drp OPB QID 06/15/22 11/09/22 History 1.4 %-0.6 % eye drops in a dropperette (Refresh Classic (PF)) sennosides 8.6 mg tablet (senna) 8.6 mg PO BID 06/15/22 11/09/22 History metoprolol succinate 50 mg 100 mg PO BID #60 tabs 06/23/22 11/09/22 Rx tablet,extended release 24 hr insulin regular human 100 unit/mL 1 sliding scale dose subcut 07/29/22 11/09/22 History (3 mL) subcutaneous pen (Novolin R USEASDIRECTD FlexPen) potassium chloride 20 mEq 20 meq PO BID #60 tabs 08/01/22 11/09/22 Rx tablet,extended release(part/cryst) insulin glargine 100 unit/mL 60 unit subcut BID 10/12/22 11/09/22 History subcutaneous solution multivitamin with minerals 1 tab PO DAILY 10/12/22 11/09/22 History spironolactone 25 mg tablet 25 mg PO DAILY 10/12/22 11/09/22 History vit C 250 mg-vit E 90 mg-zinc 40 1 tab PO BID 10/12/22 11/09/22 History mg-copper 1 [id number] capsule (PreserVision AREDS-2) furosemide 80 mg tablet 80 mg PO BID 10/25/22 11/09/22 History betamethasone dipropionate 0.05 % 1 applic topical BID #45 grams 10/28/22 11/09/22 Rx topical cream insulin regular human 100 unit/mL 20 unit (0.2 mL) subcut TIDM #10 mL 10/29/22 11/09/22 Rx injection solution (Novolin R Regular U-100 Insulin) polyvinyl alcohol-povidone (PF) 1 drp OPB DIRECTED PRN .Dry eyes 11/09/22 11/09/22 History 1.4 %-0.6 % eye drops in a dropperette (Refresh Classic (PF)) tramadol 50 mg tablet 50 mg PO .Q4-6 PRN Pain 11/09/22 11/09/22 History Allergies Allergy/AdvReac Type Severity Reaction Status Date / Time No Known Allergies Allergy Verified 11/09/22 15:23 Past Med/Surg History Medical History Bifascicular block CAD (coronary artery disease) CKD (chronic kidney disease) stage 3, GFR 30-59 ml/min Claustrophobia COPD, moderate Entropion of left lower eyelid Fatty liver Gout History of fracture Thyroid cartilage in 2019 Interstitial lung disease Nephrolithiasis Osteoarthritis Pustular psoriasis Sarcoidosis possible- evaluated by pulmonary; felt no active sarcoidosis and would not merit steroid therapy given weight/diabetic state. 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 [employer] Pacer check 12/24/17 Status post incision and drainage Family History Mother Cancer Social History Smoking Status: Unknown if ever smoked Second Hand Exposure: No; Do You Dip or Chew Tobacco: No; Hx Alcohol Use: No Hx Substance Use: No Preferred Language: Maldivian Communication Ability: Effective Visual Impairment: Limited Hearing Ability: Normal Sound Technician Required: No Beliefs That Will Affect Care: None marital status: Single Current Living Situation: Skilled Nursing Current Living Situation Comment: [facility] current occupational status: retired How many Children do You have: 1 How many Children do You have Comment: children are not involved with care much per pt Feels Safe at Home: Yes Diet: diabetic Diet Comment: FLUID RESTRICTION caffeine: No during the past year weight has: other Physical Activity Frequency: Does not Exercise Gender Identity: Male Assistive Devices: Oxygen - Continuous and Walker Physical Exam Vital Signs Vital Signs - 24 hr 11/09/22 09:48 11/09/22 10:18 11/09/22 12:00 Temperature 36.5 C Temperature Source Oral Pulse Rate 94 H Pulse Rate [Radial] 94 H Pulse Rhythm [Radial] Regular Respiratory Rate 20 18 Respiratory Effort / Characteristics Non-Labored Non-Labored Respiratory Depth Normal Normal Respiratory Pattern Regular Regular Blood Pressure 103/77 Blood Pressure [Left Arm] 133/90 Blood Pressure Mean 85 Blood Pressure Mean [Left Arm] 104 Pulse Oximetry 96 96 90 Oxygen Delivery Method Room Air Nasal Cannula Oxygen Flow Rate 3 Sepsis New/Unexplained Change in Mental Status No Sepsis Action Taken by Nursing No Action Required 11/09/22 14:10 11/09/22 15:06 11/09/22 16:04 Temperature Temperature Source Pulse Rate 88 Pulse Rate [Radial] 89 95 H Pulse Rhythm [Radial] Regular Respiratory Rate 18 16 Respiratory Effort / Characteristics Non-Labored Respiratory Depth Normal Respiratory Pattern Regular Blood Pressure Blood Pressure [Left Arm] 138/77 156/91 H Blood Pressure Mean Blood Pressure Mean [Left Arm] 97 112 Pulse Oximetry 98 96 Oxygen Delivery Method Nasal Cannula Nasal Cannula Oxygen Flow Rate 3 3 Sepsis New/Unexplained Change in Mental Status Sepsis Action Taken by Nursing Physical Exam HENT: Exam performed. - Head: Normocephalic and atraumatic. - Right Ear: External ear normal. No mastoid erythema - Left Ear: External ear normal. No mastoid erythema EYES: Conjunctivae and EOM are normal. Pupils are equal, round, and reactive to light. Right eye exhibits no discharge. Left eye exhibits no discharge. No scleral icterus. NECK: Normal range of motion. Neck supple. No JVD present. No spinous process tenderness present. CV: Normal rate, regular rhythm, normal heart sounds and intact distal pulses. There is no peripheral edema. Palpable radial pulses bue. PULM/CHEST: Effort normal and breath sounds normal. No respiratory distress. No stridor. He has no wheezes. He has no rales. ABD: The abdomen is soft obese. Erythema over the patient's anterior abdominal wall. There is no tenderness. There is no rebound, no guarding. NEURO: GCS eye subscore is 4. GCS verbal subscore is 5. GCS motor subscore is 6. Motor and sensation grossly intact. Course Course 1001: The patient was evaluated in room A4. A complete history and physical exam was performed Cardiac monitoring: An order was placed for continuous cardiac monitoring. The monitor shows a rate of 80 with sinus rhythm interpreted by me 1200: Patient being hypoxic supplemental oxygen applied which improved patient's actual saturation. 1450: Vital signs stable. Labs within normal limits with exception of glucose of 335 no evidence of DKA. Imaging initially showed possible hip fracture however CT imaging confirms no traumatic injuries. Patient is fluid overloaded on x-ray and CT of the abdomen pelvis showed improving pneumonia when the lung davis were caught. Patient will be treated with Lasix as he is hypoxic on room air and admitted to the [facility] team. Administered Medications Discontinued Medications Ioversol (Optiray 320 500ml) 120 ml IV ONCE ONE Stop: 11/09/22 14:03 Last Admin: 11/09/22 14:02 Dose: 120 ml Documented By: MARI Critical Care Time Critical Care Time: Yes Total Critical Care Time: 36 I have personally spent greater than 36 minutes of critical care time in the direct management of this patient. This includes bedside care, interpretation of diagnostic studies, and testing, discussion with consultants, patient, and family members, and other required patient management activities. This 36 minutes is in excess of all separately billable procedures. Medical Decision Making Laboratory Data Attestation: I reviewed the patient's lab results. 11/09/22 11:58 11/09/22 11:58 Lab Results 11/09/22 11/09/22 11/09/22 Range/Units 10:18 10:30 11:58 WBC 6.48 (4.8-10.8) K/ul RBC 4.31 L (4.70-6.10) M/uL Hgb 12.1 L (14.0-18.0) g/dl Hct 38.0 L (42.0-52.0) % MCV 88.2 (80.0-100.0) fL MCH 28.1 (25.0-34.0) pg MCHC 31.8 L (32.0-36.0) g/dL RDW Std Deviation 59.4 H (36.4-46.3) fL RDW Coeff of Baldo 18.5 H (11.5-14.5) % Plt Count 179 (130-400) K/uL MPV 11.5 (9.4-12.4) fL Immature Gran % (Auto) 0.5 % Neut % (Auto) 71.7 % Lymph % (Auto) 16.0 % [place] % (Auto) 10.0 % Eos % (Auto) 0.9 % Baso % (Auto) 0.9 % Neut # (Auto) 4.64 (1.40-6.50) K/uL Lymph # (Auto) 1.04 L (1.2-3.4) K/uL [place] # (Auto) 0.65 H (0.11-0.59) K/uL Eos # (Auto) 0.06 (0-0.50) K/uL Baso # (Auto) 0.06 (0-0.2) K/uL Immature Gran # (Auto) 0.03 (0.01-0.20) K/uL PT (9.0-12.0) Seconds INR (0.9-1.1) APTT (21.0-31.0) Seconds PTT Ratio Sodium (136-145) mmol/L Potassium (3.5-5.1) mmol/L Chloride (98-107) mmol/L Carbon Dioxide (21-32) mmol/L Anion Gap (3-11) BUN (6-23) mg/dl Creatinine (0.6-1.4) mg/dl Est Cr Clr Drug Dosing ml/min Est GFR ( Amer) ml/min Est GFR (Non-Af Amer) ml/min BUN/Creatinine Ratio (10-20) Glucose (70-99(Fasting)) mg/dl POC Glucose 368 H* (70-99) mg/dl Calcium (8.6-10.3) mg/dl Magnesium (1.7-2.4) mg/dl Troponin I High Sens (0-20) pg/ml Urine Color Urine Appearance (Clear) Urine pH (4.5-7.5) Ur Specific [place] (1.000-1.030) Urine Protein (Negative) Urine Glucose (UA) (Negative) Urine Ketones (Negative) Urine Blood (Negative) Urine Nitrite (Negative) Urine Bilirubin (Negative) Urine Urobilinogen (Negative) Ur Leukocyte Esterase (Negative) SARS-CoV-2, RNA, NAAT NEGATIVE (NEGATIVE) 11/09/22 11/09/22 11/09/22 Range/Units 11:58 11:58 12:35 WBC (4.8-10.8) K/ul RBC (4.70-6.10) M/uL Hgb (14.0-18.0) g/dl Hct (42.0-52.0) % MCV (80.0-100.0) fL MCH (25.0-34.0) pg MCHC (32.0-36.0) g/dL RDW Std Deviation (36.4-46.3) fL RDW Coeff of Baldo (11.5-14.5) % Plt Count (130-400) K/uL MPV (9.4-12.4) fL Immature Gran % (Auto) % Neut % (Auto) % Lymph % (Auto) % [place] % (Auto) % Eos % (Auto) % Baso % (Auto) % Neut # (Auto) (1.40-6.50) K/uL Lymph # (Auto) (1.2-3.4) K/uL [place] # (Auto) (0.11-0.59) K/uL Eos # (Auto) (0-0.50) K/uL Baso # (Auto) (0-0.2) K/uL Immature Gran # (Auto) (0.01-0.20) K/uL PT 12.9 H (9.0-12.0) Seconds INR 1.2 H (0.9-1.1) APTT 35.0 H (21.0-31.0) Seconds PTT Ratio 1.2 Sodium 138 (136-145) mmol/L Potassium 3.4 L (3.5-5.1) mmol/L Chloride 97 L (98-107) mmol/L Carbon Dioxide 33 H (21-32) mmol/L Anion Gap 8 (3-11) BUN 20 (6-23) mg/dl Creatinine 1.32 (0.6-1.4) mg/dl Est Cr Clr Drug Dosing 77.3 ml/min Est GFR ( Amer) 62.9 ml/min Est GFR (Non-Af Amer) 54.3 ml/min BUN/Creatinine Ratio 15.2 (10-20) Glucose 335 H* (70-99(Fasting)) mg/dl POC Glucose (70-99) mg/dl Calcium 9.2 (8.6-10.3) mg/dl Magnesium 1.8 (1.7-2.4) mg/dl Troponin I High Sens 14.8 (0-20) pg/ml Urine Color Yellow Urine Appearance Clear (Clear) Urine pH 7.0 (4.5-7.5) Ur Specific [place] 1.009 (1.000-1.030) Urine Protein Negative (Negative) Urine Glucose (UA) 2+ H (Negative) Urine Ketones Negative (Negative) Urine Blood Negative (Negative) Urine Nitrite Negative (Negative) Urine Bilirubin Negative (Negative) Urine Urobilinogen Negative (Negative) Ur Leukocyte Esterase Negative (Negative) SARS-CoV-2, RNA, NAAT (NEGATIVE) Imaging Data Attestation: I personally reviewed and interpreted this imaging study as follows: My Impression: CT head no ICH Radiologist's Impression: Abdomen/Pelvis CT 11/09/22 10:[address] WITH IV CONTRAST CT DOSE: HISTORY: Fall. Generalized abdominal pain. TECHNIQUE: Multiaxial CT images of the abdomen and pelvis were performed following the use of intravenous contrast. A dose lowering technique was utilized adhering to the principles of ALARA. COMPARISON STUDY: Abdomen and pelvis CT 10/24/2022 and 10/12/2022. FINDINGS: Interval improvement in the patchy left lower lobe airspace opacities. Mild interlobular septal thickening within the lung bases suggestive of congestive change. Suture material noted within the right lung base. There are trace bilateral pleural effusions. The heart remains enlarged. Pacemaker wires are partially visualized. Prominent hilar and subcarinal lymph nodes are noted. No pneumoperitoneum. No pneumatosis. No acute fractures identified. Spec ifically, no acute fractures within the left hip. There are old, healed bilateral anterior rib fractures noted. Prior midline ventral hernia repair. Mild diffuse body wall edema is noted. Subtle nodular contour to the liver suggestive of early cirrhosis. Status post cholecystectomy. There is a small gallbladder remnant identified containing a few punctate stones. This remains unchanged. The main portal vein is patent. However, there is persistent thrombus identified within the posterior/inferior segmental branch of the right portal vein. This is best seen on image 137. This likely accounts for the wedge-shaped hypodensity within the posterior segment of the right hepatic lobe consistent with diminished perfusion/infarct. This is similar to the prior study and therefore favors a subacute to chronic process. The spleen, adrenal glands, and pancreas are unremarkable. No hydronephrosis. Normal caliber abdominal aorta with mild calcified plaque. No retroperitoneal lymphadenopathy. The bladder is unremarkable. The prostate gland is normal in size. No pelvic lymphadenopathy or pelvic free fluid. Moderate fecal retention. No bowel wall thickening or obstruction. Normal appendix. IMPRESSION: 1. 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 Wedge-shaped hypodensity within the posterior segment of the right hepatic lobe also persists and may represent a subacute/chronic infarct or abnormal perfusion from the portal vein thrombosis. 2. Cardiomegaly with mild congestive change and trace bilateral pleural effusions. 3. Patchy airspace opacities within the left lower lobe favor a pneumonia. This has improved. 4. Small gallbladder remnant containing a few punctate gallstones. This remains unchanged. 5. No bowel wall thickening or obstruction. 6. Normal appendix. 7. No acute fractures. Specifically, no evidence for an acute left hip fracture. 8. Additional findings as described above. ACT 112: Negative or not required by law. Electronically signed by: Stan Lopez M.D. 11/09/2022 2:[address] 11/09/22 10:[address] DOSE: 3127.94 mGy.cm HISTORY: Neck pain. fall abd pain TECHNIQUE: Multiaxial CT images of the cervical spine were performed and reformatted in the sagittal and coronal plane without the use of contrast. A dose lowering technique was utilized adhering to the principles of ALARA. COMPARISON: Cervical spine CT 11/01/2021. FINDINGS: No fractures. No subluxation. Prevertebral soft tissues and the C1-C2 interval are intact. No pneumothorax. A left-sided pacemaker is partially visualized. IMPRESSION: No fractures within the cervical spine. ACT 112: Negative or not required by law. Electronically signed by: Stan Lopez M.D. 11/09/2022 2:41 PM Chest X-Ray 11/09/22 10:18 XR chest 1V portable HISTORY: fall abd pain COMPARISON: Chest 10/24/2022. FINDINGS: No pneumothorax. The heart remains enlarged. There is left-sided dual- chamber pacemaker. Interstitial/vascular thickening persists and is consistent with mild congestive change. No new focal lung consolidations to suggest a pneumonia. There are trace bilateral pleural effusions. There are old, healed right-sided rib fractures again noted. IMPRESSION: Cardiomegaly with mild congestive change and trace bilateral pleural effusions. This is similar to the prior study. ACT 112: Negative or not required by law. Electronically signed by: Stan Lopez M.D. 11/09/2022 12:[address] 11/09/22 10:[address] DOSE: HISTORY: fall abd pain TECHNIQUE: Multiaxial CT images of the head were performed without the use of intravenous contrast. Automated exposure control was utilized for this study. A dose lowering technique was utilized adhering to the principles of ALARA. Comparison: Head CT 08/20/2022. Findings: The paranasal sinuses and mastoid air cells are clear. The calvarium and skull base are intact. There is no mass, hematoma, midline shift, acute infarct. White matter hypodensity is nonspecific but suggestive of microvascular ischemic change. The ventricles and sulci demonstrate mild age-related involutional changes. Impression: No significant change compared to the prior study. No acute intracranial abnormality. ACT 112: Negative or not required by law. Electronically signed by: Stan Lopez M.D. 11/09/2022 2:36 PM Pelvis X-Ray 11/09/22 10:19 XR pelvis 1-2V routine CLINICAL HISTORY: Fall. Pelvic pain. COMPARISON STUDY: None. FINDINGS: Abnormal appearance to the left femoral head neck junction which is concerning for a nondisplaced fracture. Otherwise, no acute fracture or dislocation within the pelvis or right hip. Suture material seen within the left lower quadrant. IMPRESSION: Possible nondisplaced fracture within the left femoral neck. This will be better appreciated on the same day abdomen and pelvis CT ACT 112: Negative or not required by law. Electronically signed by: Stan Lopez M.D. 11/09/2022 12:46 PM ECG Data Attestation: I personally reviewed and interpreted this ECG as follows: Additional Comments: Atrial fibrillation with a rate of 92. QRS 156 QTc 502. Bifascicular block present. PVCs present. [facility] Narrative 1001: The patient was evaluated in room A4. A complete history and physical exam was performed Cardiac monitoring: An order was placed for continuous cardiac monitoring. The monitor shows a rate of 80 with sinus rhythm interpreted by me 1200: Patient being hypoxic supplemental oxygen applied which improved patient's actual saturation. 1450: Vital signs stable. Labs within normal limits with exception of glucose of 335 no evidence of DKA. Imaging initially showed possible hip fracture however CT imaging confirms no traumatic injuries. Patient is fluid overloaded on x-ray and CT of the abdomen pelvis showed improving pneumonia when the lung davis were caught. Patient will be treated with Lasix as he is hypoxic on room air and admitted to the [facility] team. Impression & Plan Hypoxia, Recurrent falls, CHF exacerbation Discharge Plan Visit Data Chief Complaint: Fall Stated Complaint: HYPERGLYCEMIA, FALLS, WEAKNESS ED Provider: Trey Morrissey Discharge Problem: Hypoxia, Recurrent falls, CHF exacerbation Patient Disposition: Admitted As Inpatient Forms Stand Alone Forms: My [facility] Prescriptions Prescriptions: No Action betamethasone dipropionate 0.05 % cream 1 applic topical BID Qty: 45 1RF Rx Instructions: Apply to areas of the back, buttocks and abdomen twice daily x 2 weeks as directed. Stop 11/12/2022. Novolin R FlexPen 100 unit/mL (3 mL) Insulin Pen 1 sliding scale dose SUBCUT USEASDIRECTD potassium chloride 20 mEq tablet,ER particles/crystals 20 meq PO BID Qty: 60 0RF insulin glargine 100 unit/mL Solution 60 unit SUBCUT BID spironolactone 25 mg tablet 25 mg PO DAILY PreserVision AREDS-2 250-90-40-1 mg Capsule 1 tab PO BID multivitamin with minerals Tablet 1 tab PO DAILY furosemide 80 mg Tablet 80 mg PO BID Novolin R Regular U-100 Insuln 100 unit/mL solution 20 unit subcut TIDM Qty: 10 0RF tramadol 50 mg Tablet 50 mg PO .Q4-6 PRN (Reason: Pain) Refresh Classic (PF) 1.4-0.6 % Dropperette 1 drp OPB DIRECTED PRN (Reason: .Dry eyes) sennosides [senna] 8.6 mg Tablet 8.6 mg PO BID acetaminophen [Tylenol] 325 mg Tablet 650 mg PO Q4 PRN (Reason: Fever Or Pain) magnesium oxide 420 mg Tablet 420 mg PO DAILY aspirin 81 mg Tablet,Delayed Release (Dr/Ec) 81 mg PO DAILY erythromycin 5 mg/gram (0.5 %) ointment 1 applic OPB HS Rx Instructions: 1/2 inch ribbon to right and left lower eyelids at bedtime levothyroxine 125 mcg Tablet 250 mcg PO DAILY lidocaine 5 % Adhesive Patch,Medicated 1 patch TOPICAL DAILY Rx Instructions: leave on most painful area for up to 12 hrs, then take off nitroglycerin [Nitrostat] 0.4 mg Tablet, Sublingual 0.4 mg sublingual DIRECTED PRN (Reason: Chest Pain) digoxin 125 mcg (0.125 mg) Tablet 125 mcg PO DAILY Rx Instructions: 1800 nystatin 100,000 unit/gram Powder 1 applic TOPICAL BID epinephrine 0.3 mg/0.3 mL Auto-Injector 0.3 mg IM DIRECTED PRN (Reason: Allergic Reaction) albuterol sulfate 90 mcg/actuation Hfa Aerosol Inhaler 2 puff INHALATION Q4 PRN (Reason: Shortness Of Breath Or Wheezing) Naphcon-A 0.025-0.3 % Drops 2 drp OPHTHALMIC (EYE) Q6 PRN (Reason: Eye Irritation) loratadine 10 mg Tablet 20 mg PO DAILY PRN (Reason: .allergies) Refresh Classic (PF) 1.4-0.6 % Dropperette 1 drp OPB QID duloxetine 60 mg capsule,delayed release(DR/EC) 60 mg PO DAILY cholecalciferol (vitamin D3) [Vitamin D3] 25 mcg (1,000 unit) Tablet 50 mcg PO DAILY apixaban 5 mg Tablet 5 mg PO Q12 atorvastatin 10 mg tablet 10 mg PO HS gabapentin 300 mg capsule 300 mg PO QID omeprazole 20 mg capsule,delayed release(DR/EC) 20 mg PO QAM allopurinol 300 mg tablet 300 mg PO DAILY bupropion HCl 150 mg tablet extended release 24 hr 150 mg PO QAM metoprolol succinate 50 mg Tablet Extended Release 24 Hr 100 mg PO BID Qty: 60 0RF Referrals Referrals: Hernan [facility] [Primary Care Provider] -
--- NOTE | 2022-11-09 14:35 | CT Scan Report ---
ABDOMEN AND PELVIS CT WITH IV CONTRAST CT DOSE: HISTORY: Fall. Generalized abdominal pain. TECHNIQUE: Multiaxial CT images of the abdomen and pelvis were performed following the use of intrave nous contrast. A dose lowering technique was utilized adhering to the principles of ALARA. COMPARISON STUDY: Abdomen and pelvis CT 10/24/2022 and 10/12/2022. FINDINGS: Interval improvement in the patchy left lower lobe airspace opacities. Mild interlobular se ptal thickening within the lung bases suggestive of congestive change. Suture material noted within t he right lung base. There are trace bilateral pleural effusions. The heart remains enlarged. Pacemake r wires are partially visualized. Prominent hilar and subcarinal lymph nodes are noted. No pneumoperi toneum. No pneumatosis. No acute fractures identified. Specifically, no acute fractures within the le ft hip. There are old, healed bilateral anterior rib fractures noted. Prior midline ventral hernia re pair. Mild diffuse body wall edema is noted. Subtle nodular contour to the liver suggestive of early cirrhosis. Status post cholecystectomy. There is a small gallbladder remnant identified containing a few punctate stones. This remains unchanged. The main portal vein is patent. However, there is persis tent thrombus identified within the posterior/inferior segmental branch of the right portal vein. Thi s is best seen on image 137. This likely accounts for the wedge-shaped hypodensity within the posteri or segment of the right hepatic lobe consistent with diminished perfusion/infarct. This is similar to the prior study and therefore favors a subacute to chronic process. The spleen, adrenal glands, and pancreas are unremarkable. No hydronephrosis. Normal caliber abdominal aorta with mild calcified plaq ue. No retroperitoneal lymphadenopathy. The bladder is unremarkable. The prostate gland is normal in size. No pelvic lymphadenopathy or pelvic free fluid. Moderate fecal retention. No bowel wall thicken ing or obstruction. Normal appendix. IMPRESSION: 1. 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 In retrospect, this is s imilar to the prior studies and therefore favors a subacute to chronic thrombus. Wedge-shaped hypoden sity within the posterior segment of the right hepatic lobe also persists and may represent a subacut e/chronic infarct or abnormal perfusion from the portal vein thrombosis. 2. Cardiomegaly with mild congestive change and trace bilateral pleural effusions. 3. Patchy airspace opacities within the left lower lobe favor a pneumonia. This has improved. 4. Small gallbladder remnant containing a few punctate gallstones. This remains unchanged. 5. No bowel wall thickening or obstruction. 6. Normal appendix. 7. No acute fractures. Specifically, no evidence for an acute left hip fracture. 8. Additional findings as described above. ACT 112: Negative or not required by law. Electronically signed by: Stan Lopez M.D. 11/09/2022 2:33 PM
--- NOTE | 2022-11-09 14:37 | CT Scan Report ---
HEAD CT NONCONTRAST CT DOSE: HISTORY: fall abd pain TECHNIQUE: Multiaxial CT images of the head were performed without the use of intravenous contrast. A utomated exposure control was utilized for this study. A dose lowering technique was utilized adheri ng to the principles of ALARA. Comparison: Head CT 08/20/2022. Findings: The paranasal sinuses and mastoid air cells are clear. The calvarium and skull base are int act. There is no mass, hematoma, midline shift, acute infarct. White matter hypodensity is nonspecifi c but suggestive of microvascular ischemic change. The ventricles and sulci demonstrate mild age-rela kalin involutional changes. Impression: No significant change compared to the prior study. No acute intracranial abnormality. ACT 112: Negative or not required by law. Electronically signed by: Stan Lopez M.D. 11/09/2022 2:36 PM
--- NOTE | 2022-11-09 14:43 | CT Scan Report ---
CERVICAL SPINE CT CT DOSE: 3127.94 mGy.cm HISTORY: Neck pain. fall abd pain TECHNIQUE: Multiaxial CT images of the cervical spine were performed and reformatted in the sagittal and coronal plane without the use of contrast. A dose lowering technique was utilized adhering to th e principles of ALARA. COMPARISON: Cervical spine CT 11/01/2021. FINDINGS: No fractures. No subluxation. Prevertebral soft tissues and the C1-C2 interval are intact. No pneumothorax. A left-sided pacemaker is partially visualized. IMPRESSION: No fractures within the cervical spine. ACT 112: Negative or not required by law. Electronically signed by: Stan Lopez M.D. 11/09/2022 2:41 PM
--- NOTE | 2022-11-09 16:57 | History & Physical Report ---
Date of Service November 09, 2022 Assessment & Plan (1) Recurrent falls: (2) Weakness: (3) Loose toenail: (4) Nocturnal hypoxemia: (5) Hyperlipidemia: (6) Pacemaker: (7) Diabetes mellitus, type 2: (8) Osteoarthritis: (9) Hypothyroidism: (10) Morbid obesity: (11) Atrial flutter: (12) CKD (chronic kidney disease) stage 3, GFR 30-59 ml/min: (13) Chronic anticoagulation: (14) H/O prior ablation treatment: (15) Chronic diastolic CHF (congestive heart failure): (16) Wound of right leg: (17) Atrial fibrillation: Plan Admit telemetry Vitals as protocol Activity: Will need assistance. Diet cardiac diet We will continue prior dose of long-acting insulin along with sliding scale scale correction factor of 30 and 9 gms of carb/unit of novolog. PT/ Ot evaluation Ct scan of hip shows no evidence of fracture hence no limitation in ambulation. will continue diuretics at this time for CHF daily weights Code status: full code History of Present Illness Chief Complaint: Frequent falls 5 falls in the last week. Elevated sugars Primary Care Provider: [facility] 72-year-old male past medical history of A-fib, diastolic CHF, CAD, pacemaker, type 2 diabetes mellitus, COPD, hypothyroidism resident of [facility] presented with 5 episodes of falls in the past week. Patient is also noted to have elevated sugars. Patient states that he feels weak and unstable . He usually uses a walker but since the falls is using the wheelchair. He was also noted to have elevated sugars. He has been on long acting insulin and coverage for the same. Denies chest pain , shortness of breath, fever, nausea, vomiting. Information obtained from patient, review of charts, ER notes. Allergies Allergy/AdvReac Type Severity Reaction Status Date / Time No Known Allergies Allergy Verified 11/09/22 15:23 Home Medications Medication Instructions Recorded Confirmed Type acetaminophen 325 mg tablet 650 mg PO Q4 PRN Fever Or Pain 06/15/22 11/09/22 History (Tylenol) albuterol sulfate 90 mcg/actuation 2 puff inhalation Q4 PRN Shortness 06/15/22 11/09/22 History aerosol inhaler Of Breath Or Wheezing allopurinol 300 mg tablet 300 mg PO DAILY 06/15/22 11/09/22 History apixaban 5 mg tablet 5 mg PO Q12 06/15/22 11/09/22 History aspirin 81 mg tablet,delayed 81 mg PO DAILY 06/15/22 11/09/22 History release atorvastatin 10 mg tablet 10 mg PO HS 06/15/22 11/09/22 History bupropion HCl 150 mg 24 hr tablet, 150 mg PO QAM 06/15/22 11/09/22 History extended release cholecalciferol (vitamin D3) 25 50 mcg PO DAILY 06/15/22 11/09/22 History mcg (1,000 unit) tablet (Vitamin D3) digoxin 125 mcg (0.125 mg) tablet 125 mcg PO DAILY 06/15/22 11/09/22 History duloxetine 60 mg capsule,delayed 60 mg PO DAILY 06/15/22 11/09/22 History release epinephrine 0.3 mg/0.3 mL 0.3 mg IM DIRECTED PRN Allergic 06/15/22 11/09/22 History injection, auto-injector Reaction erythromycin 5 mg/gram (0.5 %) eye 1 applic OPB HS 06/15/22 11/09/22 History ointment gabapentin 300 mg capsule 300 mg PO QID 06/15/22 11/09/22 History levothyroxine 125 mcg tablet 250 mcg PO DAILY 06/15/22 11/09/22 History lidocaine 5 % topical patch 1 patch topical DAILY 06/15/22 11/09/22 History loratadine 10 mg tablet 20 mg PO DAILY PRN .allergies 06/15/22 11/09/22 History magnesium oxide 420 mg tablet 420 mg PO DAILY 06/15/22 11/09/22 History naphazoline 0.025 %-pheniramine 2 drp ophthalmic (eye) Q6 PRN Eye 06/15/22 11/09/22 History 0.3 % eye drops (Naphcon-A) Irritation nitroglycerin 0.4 mg sublingual 0.4 mg sublingual DIRECTED PRN 06/15/22 11/09/22 History tablet (Nitrostat) Chest Pain nystatin 100,000 unit/gram topical 1 applic topical BID 06/15/22 11/09/22 History powder omeprazole 20 mg capsule,delayed 20 mg PO QAM 06/15/22 11/09/22 History release polyvinyl alcohol-povidone (PF) 1 drp OPB QID 06/15/22 11/09/22 History 1.4 %-0.6 % eye drops in a dropperette (Refresh Classic (PF)) sennosides 8.6 mg tablet (senna) 8.6 mg PO BID 06/15/22 11/09/22 History metoprolol succinate 50 mg 100 mg PO BID #60 tabs 06/23/22 11/09/22 Rx tablet,extended release 24 hr insulin regular human 100 unit/mL 1 sliding scale dose subcut 07/29/22 11/09/22 History (3 mL) subcutaneous pen (Novolin R USEASDIRECTD FlexPen) potassium chloride 20 mEq 20 meq PO BID #60 tabs 08/01/22 11/09/22 Rx tablet,extended release(part/cryst) insulin glargine 100 unit/mL 60 unit subcut BID 10/12/22 11/09/22 History subcutaneous solution multivitamin with minerals 1 tab PO DAILY 10/12/22 11/09/22 History spironolactone 25 mg tablet 25 mg PO DAILY 10/12/22 11/09/22 History vit C 250 mg-vit E 90 mg-zinc 40 1 tab PO BID 10/12/22 11/09/22 History mg-copper 1 [id number] capsule (PreserVision AREDS-2) furosemide 80 mg tablet 80 mg PO BID 10/25/22 11/09/22 History betamethasone dipropionate 0.05 % 1 applic topical BID #45 grams 10/28/22 11/09/22 Rx topical cream insulin regular human 100 unit/mL 20 unit (0.2 mL) subcut TIDM #10 mL 10/29/22 11/09/22 Rx injection solution (Novolin R Regular U-100 Insulin) polyvinyl alcohol-povidone (PF) 1 drp OPB DIRECTED PRN .Dry eyes 11/09/22 11/09/22 History 1.4 %-0.6 % eye drops in a dropperette (Refresh Classic (PF)) tramadol 50 mg tablet 50 mg PO .Q4-6 PRN Pain 11/09/22 11/09/22 History Past Med/Surg History Medical History Bifascicular block CAD (coronary artery disease) CKD (chronic kidney disease) stage 3, GFR 30-59 ml/min Claustrophobia COPD, moderate Entropion of left lower eyelid Fatty liver Gout History of fracture Thyroid cartilage in 2019 Interstitial lung disease Nephrolithiasis Osteoarthritis Pustular psoriasis Sarcoidosis possible- evaluated by pulmonary; felt no active sarcoidosis and would not merit steroid therapy given weight/diabetic state. 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 [employer] Pacer check 12/24/17 Status post incision and drainage Family History Mother Cancer Social History Smoking Status: Unknown if ever smoked Second Hand Exposure: No; Do You Dip or Chew Tobacco: No; Hx Alcohol Use: No Hx Substance Use: No Preferred Language: Filipino Communication Ability: Effective Visual Impairment: Limited Hearing Ability: Normal Wrinkle Chaser Required: No Beliefs That Will Affect Care: None marital status: Single Current Living Situation: Alf Current Living Situation Comment: [address] current occupational status: retired How many Children do You have: 1 How many Children do You have Comment: children are not involved with care much per pt Feels Safe at Home: Yes Diet: diabetic Diet Comment: FLUID RESTRICTION caffeine: No during the past year weight has: other Physical Activity Frequency: Does not Exercise Gender Identity: Male Assistive Devices: Oxygen - Continuous and Walker Review of Systems Review of Systems: I have reviewed all systems as noted in History and physical rest reviewed as negative. Physical Exam Physical Exam: Neuro: AAOx3, PERRLA, HEENT: head normocephalic, moist mucus membranes Skin : reddish discoloration on the abdomen and lower back. right foot bandaged CV: S1/S2, no murmurs Resp: Lungs CTA in all davis. bilateral crackles. GI: Abdomen non tender . Musculoskeletal: non tender Psych: normal affect Results & Data Results & Data Vital Signs (Past 12 Hours) Vital Signs Temp Pulse Pulse Resp BP BP Pulse Ox 11/09/22 16:33 123/80 11/09/22 16:32 103 H 19 94 11/09/22 16:04 88 11/09/22 15:06 95 H 16 156/91 H 96 11/09/22 14:10 89 18 138/77 98 11/09/22 12:00 94 H 18 133/90 90 11/09/22 10:18 96 11/09/22 09:48 36.5 C 94 H 20 103/77 96 O2 Del Method O2 Flow Rate 11/09/22 16:33 11/09/22 16:32 Nasal Cannula 3 11/09/22 16:04 11/09/22 15:06 Nasal Cannula 3 11/09/22 14:10 Nasal Cannula 3 11/09/22 12:00 Nasal Cannula 3 11/09/22 10:18 Room Air 11/09/22 09:48 Laboratory Results Laboratory Results WBC 6.48 K/ul (4.8-10.8) 11/09/22 11:58 RBC 4.31 M/uL (4.70-6.10) L 11/09/22 11:58 Hgb 12.1 g/dl (14.0-18.0) L 11/09/22 11:58 Hct 38.0 % (42.0-52.0) L 11/09/22 11:58 MCV 88.2 fL (80.0-100.0) 11/09/22 11:58 MCH 28.1 pg (25.0-34.0) 11/09/22 11:58 MCHC 31.8 g/dL (32.0-36.0) L 11/09/22 11:58 RDW Std Deviation 59.4 fL (36.4-46.3) H 11/09/22 11:58 RDW Coeff of Baldo 18.5 % (11.5-14.5) H 11/09/22 11:58 Plt Count 179 K/uL (130-400) 11/09/22 11:58 MPV 11.5 fL (9.4-12.4) 11/09/22 11:58 Immature Gran % (Auto) 0.5 % 11/09/22 11:58 Neut % (Auto) 71.7 % 11/09/22 11:58 Lymph % (Auto) 16.0 % 11/09/22 11:58 Heard % (Auto) 10.0 % 11/09/22 11:58 Eos % (Auto) 0.9 % 11/09/22 11:58 Baso % (Auto) 0.9 % 11/09/22 11:58 Neut # (Auto) 4.64 K/uL (1.40-6.50) 11/09/22 11:58 Lymph # (Auto) 1.04 K/uL (1.2-3.4) L 11/09/22 11:58 Heard # (Auto) 0.65 K/uL (0.11-0.59) H 11/09/22 11:58 Eos # (Auto) 0.06 K/uL (0-0.50) 11/09/22 11:58 Baso # (Auto) 0.06 K/uL (0-0.2) 11/09/22 11:58 Immature Gran # (Auto) 0.03 K/uL (0.01-0.20) 11/09/22 11:58 PT 12.9 Seconds (9.0-12.0) H 11/09/22 11:58 INR 1.2 (0.9-1.1) H 11/09/22 11:58 APTT 35.0 Seconds (21.0-31.0) H 11/09/22 11:58 PTT Ratio 1.2 11/09/22 11:58 Sodium 138 mmol/L (136-145) 11/09/22 11:58 Potassium 3.4 mmol/L (3.5-5.1) L 11/09/22 11:58 Chloride 97 mmol/L (98-107) L 11/09/22 11:58 Carbon Dioxide 33 mmol/L (21-32) H 11/09/22 11:58 Anion Gap 8 (3-11) 11/09/22 11:58 BUN 20 mg/dl (6-23) 11/09/22 11:58 Creatinine 1.32 mg/dl (0.6-1.4) 11/09/22 11:58 Est Cr Clr Drug Dosing 77.3 ml/min 11/09/22 11:58 Est GFR ( Amer) 62.9 ml/min 11/09/22 11:58 Est GFR (Non-Af Amer) 54.3 ml/min 11/09/22 11:58 BUN/Creatinine Ratio 15.2 (10-20) 11/09/22 11:58 Glucose 335 mg/dl (70-99(Fasting)) H* 11/09/22 11:58 POC Glucose 368 mg/dl (70-99) H* 11/09/22 10:18 Calcium 9.2 mg/dl (8.6-10.3) 11/09/22 11:58 Magnesium 1.8 mg/dl (1.7-2.4) 11/09/22 11:58 Troponin I High Sens 14.8 pg/ml (0-20) 11/09/22 11:58 Urine Color Yellow 11/09/22 12:35 Urine Appearance Clear (Clear) 11/09/22 12:35 Urine pH 7.0 (4.5-7.5) 11/09/22 12:35 Ur Specific [place] 1.009 (1.000-1.030) 11/09/22 12:35 Urine Protein Negative (Negative) 11/09/22 12:35 Urine Glucose (UA) 2+ (Negative) H 11/09/22 12:35 Urine Ketones Negative (Negative) 11/09/22 12:35 Urine Blood Negative (Negative) 11/09/22 12:35 Urine Nitrite Negative (Negative) 11/09/22 12:35 Urine Bilirubin Negative (Negative) 11/09/22 12:35 Urine Urobilinogen Negative (Negative) 11/09/22 12:35 Ur Leukocyte Esterase Negative (Negative) 11/09/22 12:35 SARS-CoV-2, RNA, NAAT NEGATIVE (NEGATIVE) 11/09/22 10:30 Impressions Abdomen/Pelvis CT 11/09/22 10:[address] WITH IV CONTRAST CT DOSE: HISTORY: Fall. Generalized abdominal pain. TECHNIQUE: Multiaxial CT images of the abdomen and pelvis were performed following the use of intravenous contrast. A dose lowering technique was utilized adhering to the principles of ALARA. COMPARISON STUDY: Abdomen and pelvis CT 10/24/2022 and 10/12/2022. FINDINGS: Interval improvement in the patchy left lower lobe airspace opacities. Mild interlobular septal thickening within the lung bases suggestive of congestive change. Suture material noted within the right lung base. There are trace bilateral pleural effusions. The heart remains enlarged. Pacemaker wires are partially visualized. Prominent hilar and subcarinal lymph nodes are noted. No pneumoperitoneum. No pneumatosis. No acute fractures identified. Specifically, no acute fractures within the left hip. There are old, healed bilateral anterior rib fractures noted. Prior midline ventral hernia repair. Mild diffuse body wall edema is noted. Subtle nodular contour to the liver suggestive of early cirrhosis. Status post cholecystectomy. There is a small gallbladder remnant identified containing a few punctate stones. This remains unchanged. The main portal vein is patent. However, there is persistent thrombus identified within the posterior/inferior segmental branch of the right portal vein. This is best seen on image 137. This likely accounts for the wedge-shaped hypodensity within the posterior segment of the right hepatic lobe consistent with diminished perfusion/infarct. This is similar to the prior study and therefore favors a subacute to chronic process. The spleen, adrenal glands, and pancreas are unremarkable. No hydronephrosis. Normal caliber abdominal aorta with mild calcified plaque. No retroperitoneal lymphadenopathy. The bladder is unremarkable. The prostate gland is normal in size. No pelvic lymphadenopathy or pelvic free fluid. Moderate fecal retention. No bowel wall thickening or obstruction. Normal appendix. IMPRESSION: 1. 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 Wedge-shaped hypodensity within the posterior segment of the right hepatic lobe also persists and may represent a subacute/chronic infarct or abnormal perfusion from the portal vein thrombosis. 2. Cardiomegaly with mild congestive change and trace bilateral pleural effusions. 3. Patchy airspace opacities within the left lower lobe favor a pneumonia. This has improved. 4. Small gallbladder remnant containing a few punctate gallstones. This remains unchanged. 5. No bowel wall thickening or obstruction. 6. Normal appendix. 7. No acute fractures. Specifically, no evidence for an acute left hip fracture. 8. Additional findings as described above. ACT 112: Negative or not required by law. Electronically signed by: Stan Lopez M.D. 11/09/2022 2:[address] 11/09/22 10:[address] DOSE: 3127.94 mGy.cm HISTORY: Neck pain. fall abd pain TECHNIQUE: Multiaxial CT images of the cervical spine were performed and reformatted in the sagittal and coronal plane without the use of contrast. A dose lowering technique was utilized adhering to the principles of ALARA. COMPARISON: Cervical spine CT 11/01/2021. FINDINGS: No fractures. No subluxation. Prevertebral soft tissues and the C1-C2 interval are intact. No pneumothorax. A left-sided pacemaker is partially visualized. IMPRESSION: No fractures within the cervical spine. ACT 112: Negative or not required by law. Electronically signed by: Stan Lopez M.D. 11/09/2022 2:41 PM Chest X-Ray 11/09/22 10:18 XR chest 1V portable HISTORY: fall abd pain COMPARISON: Chest 10/24/2022. FINDINGS: No pneumothorax. The heart remains enlarged. There is left-sided dual- chamber pacemaker. Interstitial/vascular thickening persists and is consistent with mild congestive change. No new focal lung consolidations to suggest a pneumonia. There are trace bilateral pleural effusions. There are old, healed right-sided rib fractures again noted. IMPRESSION: Cardiomegaly with mild congestive change and trace bilateral pleural effusions. This is similar to the prior study. ACT 112: Negative or not required by law. Electronically signed by: Stan Lopez M.D. 11/09/2022 12:[address] 11/09/22 10:[address] DOSE: HISTORY: fall abd pain TECHNIQUE: Multiaxial CT images of the head were performed without the use of intravenous contrast. Automated exposure control was utilized for this study. A dose lowering technique was utilized adhering to the principles of ALARA. Comparison: Head CT 08/20/2022. Findings: The paranasal sinuses and mastoid air cells are clear. The calvarium and skull base are intact. There is no mass, hematoma, midline shift, acute infarct. White matter hypodensity is nonspecific but suggestive of microvascular ischemic change. The ventricles and sulci demonstrate mild age-related i nvolutional changes. Impression: No significant change compared to the prior study. No acute intracranial abnormality. ACT 112: Negative or not required by law. Electronically signed by: Stan Lopez M.D. 11/09/2022 2:36 PM Pelvis X-Ray 11/09/22 10:19 XR pelvis 1-2V routine CLINICAL HISTORY: Fall. Pelvic pain. COMPARISON STUDY: None. FINDINGS: Abnormal appearance to the left femoral head neck junction which is concerning for a nondisplaced fracture. Otherwise, no acute fracture or dislocation within the pelvis or right hip. Suture material seen within the left lower quadrant. IMPRESSION: Possible nondisplaced fracture within the left femoral neck. This will be better appreciated on the same day abdomen and pelvis CT ACT 112: Negative or not required by law. Electronically signed by: Stan Lopez M.D. 11/09/2022 12:46 PM Abnormal Labs 11/09/22 11/09/22 11/09/22 10:18 11:58 11:58 RBC 4.31 L Hgb 12.1 L Hct 38.0 L MCHC 31.8 L RDW Std Deviation 59.4 H RDW Coeff of Baldo 18.5 H Lymph # (Auto) 1.04 L Heard # (Auto) 0.65 H PT 12.9 H INR 1.2 H APTT 35.0 H Potassium Chloride Carbon Dioxide Glucose POC Glucose 368 H* Urine Glucose (UA) 11/09/22 11/09/22 11:58 12:35 RBC Hgb Hct MCHC RDW Std Deviation RDW Coeff of Baldo Lymph # (Auto) Heard # (Auto) PT INR APTT Potassium 3.4 L Chloride 97 L Carbon Dioxide 33 H Glucose 335 H* POC Glucose Urine Glucose (UA) 2+ H ECG Additional Comments: Atrial fibrillation with occasional ventricular-paced complexes and with prematu re ventricular or aberrantly conducted complexes Right bundle branch block Left anterior fascicular block Bifascicular block Possible Lateral infarct , age undetermined Cannot rule out Inferior infarct (masked by fascicular block?) , age undetermined Code Status & VTE Plan Code Status full code VTE Prophylaxis Plan VTE Prophylaxis will be ordered: Yes (5) Hyperlipidemia Hyperlipidemia type: unspecified Qualified Code(s): E78.5 - Hyperlipidemia, unspecified (7) Diabetes mellitus, type 2 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
[2022-11-09] MEDS ORDERED: NAPHAZOLIN/PHENIRAMIN OPH SOLN 75 DROPS/5 ML BTL OP PRN (18:39)
[2022-11-09] MEDS ORDERED: GLUCAGON FOR INJ 1 MG VIAL SQ PRN (18:39)
[2022-11-09] MEDS ORDERED: GLUCOSE 10 TAB/TUBE PO PRN (18:39)
[2022-11-09] MEDS ORDERED: GLUCOSE 40% GEL 15 GM TUBE PO PRN (18:39)
[2022-11-09] MEDS ORDERED: PHARMACY GLYCEMIC MGMT CONSULT PRN (18:39)
[2022-11-09] MEDS ORDERED: LORATADINE 10 MG TAB PO PRN (18:39)
[2022-11-09] MEDS ORDERED: DEXTROSE 50% 50 ML SYRINGE IV PRN (18:39)
[2022-11-09] MEDS ORDERED: ACETAMINOPHEN 325 MG TAB PO PRN ×2 (18:39)
[2022-11-09] MEDS ORDERED: ALBUTEROL HFA 8 GM INHALER INH PRN (18:39)
[2022-11-09] MEDS ORDERED: CARBOHYDRATES FOR HYPOGLYCEMIA PO PRN (18:39)
[2022-11-09] MEDS ORDERED: NON-FORMULARY MEDICATION (Polyvinyl Alcohol-Povidon(Pf) [Refresh Classic (Pf)] 1.4-0.6 % D OPB PRN (18:39)
[2022-11-09] MEDS ORDERED: POLYETHYLENE (MIRALAX) 17 GM PACK PO PRN (18:39)
[2022-11-09] MEDS: traMADol HCL 50 MG TABLET PO PRN (20:53)
[2022-11-09] MEDS: DIGOXIN 0.125 MG TAB PO SCH (20:55)
[2022-11-09] MEDS: FUROSEMIDE 80 MG TAB PO SCH (20:55)
[2022-11-09] MEDS: APIXABAN 5 MG TABLET PO SCH (20:56)
[2022-11-09] MEDS: ATORVASTATIN 10 MG TAB PO SCH (20:57)
[2022-11-09] MEDS: ERYTHROMYCIN OP OINT 5 MG/GM 3.5 GM TUBE OPB SCH (20:58)
[2022-11-09] MEDS: GABAPENTIN 300 MG CAP PO SCH (20:58)
[2022-11-09] MEDS: BETAMETHASONE DIP AUG (DIPROLENE) 0.05% CR 50 GM TUBE EXT SCH (20:58)
[2022-11-09] MEDS: METOPROLOL SUCC 50MG EXT REL TAB PO SCH (20:59)
[2022-11-09] MEDS ORDERED: NON-FORMULARY MEDICATION (Vit C,E-Zn-Coppr-Lutein-Zeaxan [Preservision Areds-2] 250-90-40- PO SCH (21:00)
[2022-11-09] MEDS: NYSTATIN POWDER 15GM BTL EXT SCH (21:00)
[2022-11-09] MEDS: POTASSIUM CHLORIDE CRTAB 20 MEQ TABCR PO SCH (21:00)
[2022-11-09] MEDS: SENNA 8.6 MG TAB PO SCH (21:01)
[2022-11-09] MEDS: LANTUS PER UNIT CHARGE SQ SCH (21:21)
[2022-11-09] MEDS: INSULIN ASPART PER UNIT CHARGE SC SCH (21:21)
[2022-11-10] MEDS: ARTIFICIAL TEARS OP SCH ×5 (01:21→22:01)
[2022-11-10] MEDS ORDERED: PROMETHAZINE HCL 12.5 MG in SODIUM CHLORIDE 0.9% 50 ML IV STA (04:23)
[2022-11-10] MEDS: LEVOTHYROXINE SODIUM 125 MCG TABLET PO SCH (05:11)
[2022-11-10 06:38] LABS: Hematocrit (blood only) 39.2 % (42.0-52.0); Hemoglobin 12.4 g/dl (14.0-18.0); Mean Corpuscular Hemoglobin 28.2 pg (25.0-34.0); Mean Corpuscular Hgb Conc 31.6 g/dL (32.0-36.0); Mean Corpuscular Volume 89.3 fL (80.0-100.0); Mean Platelet Volume 11.3 fL (9.4-12.4); Platelet Count 213 K/uL (130-400); RDW Coefficient of Variation 18.7 % (11.5-14.5); RDW Standard Deviation 60.4 fL (36.4-46.3); Red Blood Count 4.39 M/uL (4.70-6.10)
[2022-11-10 06:49] LABS: Calcium 9.3 mg/dl (8.6-10.3); Est GFR (African American) 65.9 ml/min; Est GFR (Non-African American) 56.9 ml/min; Potassium 3.8 mmol/L (3.5-5.1)
[2022-11-10] MEDS ORDERED: CHOLECALCIFEROL 1,000 UNITS 25 MCG TAB PO SCH (09:00)
[2022-11-10] MEDS: APIXABAN 5 MG TABLET PO SCH ×2 (09:08→21:38)
[2022-11-10] MEDS: allopurinoL 300 MG TAB PO SCH (09:08)
[2022-11-10] MEDS: buPROPion XL 150 MG TABCR PO SCH (09:09)
[2022-11-10] MEDS: BETAMETHASONE DIP AUG (DIPROLENE) 0.05% CR 50 GM TUBE EXT SCH ×2 (09:09→22:01)
[2022-11-10] MEDS: ASPIRIN 81 MG ECTAB PO SCH (09:09)
[2022-11-10] MEDS: DULoxetine HCL 60 MG CAP PO SCH (09:10)
[2022-11-10] MEDS: CHOLECALCIFEROL 1,000 UNITS 25 MCG TAB PO SCH (09:10)
[2022-11-10] MEDS: GABAPENTIN 300 MG CAP PO SCH ×4 (09:10→21:38)
[2022-11-10] MEDS: FUROSEMIDE 80 MG TAB PO SCH ×2 (09:10→18:06)
[2022-11-10] MEDS: LIDOCAINE 5% 1 PATCH TD SCH (09:10)
[2022-11-10] MEDS: PANTOprazole 40 MG TAB PO SCH (09:11)
[2022-11-10] MEDS: SPIRONOLACTONE 25 MG TAB PO SCH (09:11)
[2022-11-10] MEDS: SENNA 8.6 MG TAB PO SCH ×2 (09:11→21:37)
[2022-11-10] MEDS: CEROVITE ADV FORMULA TAB PO SCH (09:11)
[2022-11-10] MEDS: METOPROLOL SUCC 50MG EXT REL TAB PO SCH ×2 (09:11→21:37)
[2022-11-10] MEDS: MAGNESIUM OXIDE 400 MG TAB PO SCH (09:11)
[2022-11-10] MEDS: NYSTATIN POWDER 15GM BTL EXT SCH ×2 (09:11→22:01)
[2022-11-10] MEDS: LANTUS PER UNIT CHARGE SQ SCH ×2 (09:47→21:56)
[2022-11-10] MEDS: INSULIN ASPART PER UNIT CHARGE SC SCH ×4 (09:47→21:57)
--- NOTE | 2022-11-10 10:04 | Pharmacy Report ---
Pharmacy Glycemic Short Note 2 - Date of Service November 10, 2022 - Glycemic Short BSG Results (Last 24 hours): 11/09/22 11/09/22 11/09/22 10:18 11:58 18:41 Glucose 335 H* POC Glucose 368 H* 271 H 11/09/22 11/10/22 11/10/22 20:27 05:51 07:44 Glucose 236 H POC Glucose 303 H* 261 H OUTPATIENT ANTIDIABETIC REGIMEN: * Lantus 60 units SQ BID * Novolin-R 20 units SQ TID with meals, plus sliding scale * HbA1c: 10.8% (10/25/22) ASSESSMENT: * Mr Andujar is a 72yo diabetic M admitted with recurrent falls, weakness. * He is well-known to the pharmacy glycemic service from past admissions, including a recent admission. * Given patient's weakness and instability at baseline, goal will be to control hyperglycemia as much as possible, while minimizing risk of hypoglycemia. * Pharmacy will continue to follow and adjust regimen as indicated. PLAN FOR INPATIENT GLYCEMIC CONTROL: * Basal insulin * Lantus 60 units SQ BID * Bolus insulin * NovoLog per scale ACHS or Q6hrs while NPO * Goal Range: Low 110 mg/dL - High 150 mg/dL * Correction Factor: 12 mg/dL/unit * Nutritional / Prandial insulin per carb ratio of 1 unit per 4 grams CHO consumed
[2022-11-10] MEDS: POTASSIUM CHLORIDE CRTAB 20 MEQ TABCR PO SCH ×2 (10:06→21:37)
[2022-11-10] MEDS: traMADol HCL 50 MG TABLET PO PRN (11:09)
--- NOTE | 2022-11-10 12:59 | Gastrointestinal Consultation ---
Date of Consultation November 10, 2022 Assessment & Plan (1) Recurrent falls: (2) CHF exacerbation: (3) Portal vein thrombosis: Plan 72 y/o male with multiple comorbidities, admitted with fall + weakness, hyperglycemia. We are consulted as CTAP noted R portal vein thrombus, which radiologist suggests was present on prior CT last month (likely subacute to chronic), with chronic/subacute infarct in the right lobe. He also has CHF, B/L pleural effusions, and LLL PNA. The PVT is an incidental finding and appears to be subacute/chronic. He has no reported GIB or s/s intestinal ischemia to suggest an acute GI process. - Pt is already on anticoagulation (Eliquis) for his h/o a-fib - Pt is having vascular surgery consult for the PVT as well - Will not recommend any change in his medical regimen at this time and will defer mgmt of his comorbidities to his primary team - GI will sign off, please call with questions Thank you for allowing us to participate in the care of this patient. Please call with any acute changes, questions or concerns. Please see addendum below wi th additional recommendation from my supervising physician. Supervising Physician Co-Signing Physician Notes I have personally seen and examined the patient with Shelia Romano PA-C on 11/10/22. Her note reflects my exam and findings. I agree with her impression and plan. Imaging does not appear to be an acute issue. Marc Aguillon M.D. History of Present Illness Reason for Consultation: portal vein thrombosis with infarction Requesting Physician: Dr. Leroy Attending Physician: Sid Leroy MD History of Present Illness This is a 72 y/o male with PMHx A-fib on Eliquis, diastolic CHF, CAD, pacemaker, type 2 diabetes mellitus, COPD, hypothyroidism, morbid obesity, CKD, psoriasis, sarcoid, GCA, resident of [facility] presented with 5 episodes of falls in the past week. Patient is also noted to have elevated sugars. CTAP w/ right portal vein thrombus; seems that he had this on a prior CT last month (likely subacute to chronic), with chronic/subacute infarct in the right lobe. He also has CHF, B/L pleural effusions, and LLL PNA. We are consulted for PVT. Labs reviewed, he has chronic stable anemia and hyperglycemia, renal function, normal platelet count, chronic indirect hyperbilirubinemia with normal transaminases and alk phos Pt has been feeling weak and having frequent falls lately. Has a fungal rash to his abd for which he sees the wound clinic. Denies any GI complaints. Denies history of liver disease. Appetite is good. Denies abdominal pain, nausea vomiting, heartburn dysphagia, change in bowel habits, melena hematochezia, hematemesis, chest pain or shortness of breath different from his baseline. No fevers or chills, jaundice, change in chronic leg edema No ETOH, tobacco, APAP or NSAID use. Allergies Allergy/AdvReac Type Severity Reaction Status Date / Time No Known Allergies Allergy Verified 11/09/22 15:23 Home Medications Medication Instructions Recorded Confirmed Type acetaminophen 325 mg tablet 650 mg PO Q4 PRN Fever Or Pain 06/15/22 11/09/22 History (Tylenol) albuterol sulfate 90 mcg/actuation 2 puff inhalation Q4 PRN Shortness 06/15/22 11/09/22 History aerosol inhaler Of Breath Or Wheezing allopurinol 300 mg tablet 300 mg PO DAILY 06/15/22 11/09/22 History apixaban 5 mg tablet 5 mg PO Q12 06/15/22 11/09/22 History aspirin 81 mg tablet,delayed 81 mg PO DAILY 06/15/22 11/09/22 History release atorvastatin 10 mg tablet 10 mg PO HS 06/15/22 11/09/22 History bupropion HCl 150 mg 24 hr tablet, 150 mg PO QAM 06/15/22 11/09/22 History extended release cholecalciferol (vitamin D3) 25 50 mcg PO DAILY 06/15/22 11/09/22 History mcg (1,000 unit) tablet (Vitamin D3) digoxin 125 mcg (0.125 mg) tablet 125 mcg PO DAILY 06/15/22 11/09/22 History duloxetine 60 mg capsule,delayed 60 mg PO DAILY 06/15/22 11/09/22 History release epinephrine 0.3 mg/0.3 mL 0.3 mg IM DIRECTED PRN Allergic 06/15/22 11/09/22 History injection, auto-injector Reaction erythromycin 5 mg/gram (0.5 %) eye 1 applic OPB HS 06/15/22 11/09/22 History ointment gabapentin 300 mg capsule 300 mg PO QID 06/15/22 11/09/22 History levothyroxine 125 mcg tablet 250 mcg PO DAILY 06/15/22 11/09/22 History lidocaine 5 % topical patch 1 patch topical DAILY 06/15/22 11/09/22 History loratadine 10 mg tablet 20 mg PO DAILY PRN .allergies 06/15/22 11/09/22 History magnesium oxide 420 mg tablet 420 mg PO DAILY 06/15/22 11/09/22 History naphazoline 0.025 %-pheniramine 2 drp ophthalmic (eye) Q6 PRN Eye 06/15/22 History 0.3 % eye drops (Naphcon-A) Irritation nitroglycerin 0.4 mg sublingual 0.4 mg sublingual DIRECTED PRN 06/15/22 11/09/22 History tablet (Nitrostat) Chest Pain nystatin 100,000 unit/gram topical 1 applic topical BID 06/15/22 11/09/22 History powder omeprazole 20 mg capsule,delayed 20 mg PO QAM 06/15/22 11/09/22 History release polyvinyl alcohol-povidone (PF) 1 drp OPB QID 06/15/22 11/09/22 History 1.4 %-0.6 % eye drops in a dropperette (Refresh Classic (PF)) sennosides 8.6 mg tablet (senna) 8.6 mg PO BID 06/15/22 11/09/22 History metoprolol succinate 50 mg 100 mg PO BID #60 tabs 06/23/22 11/09/22 Rx tablet,extended release 24 hr insulin regular human 100 unit/mL 1 sliding scale dose subcut 07/29/22 11/09/22 History (3 mL) subcutaneous pen (Novolin R USEASDIRECTD FlexPen) potassium chloride 20 mEq 20 meq PO BID #60 tabs 08/01/22 11/09/22 Rx tablet,extended release(part/cryst) insulin glargine 100 unit/mL 60 unit subcut BID 10/12/22 11/09/22 History subcutaneous solution multivitamin with minerals 1 tab PO DAILY 10/12/22 11/09/22 History spironolactone 25 mg tablet 25 mg PO DAILY 10/12/22 11/09/22 History vit C 250 mg-vit E 90 mg-zinc 40 1 tab PO BID 10/12/22 11/09/22 History mg-copper 1 od-iesbky-czifpn capsule (PreserVision AREDS-2) furosemide 80 mg tablet 80 mg PO BID 10/25/22 11/09/22 History betamethasone dipropionate 0.05 % 1 applic topical BID #45 grams 10/28/22 11/09/22 Rx topical cream insulin regular human 100 unit/mL 20 unit (0.2 mL) subcut TIDM #10 mL 10/29/22 11/09/22 Rx injection solution (Novolin R Regular U-100 Insulin) polyvinyl alcohol-povidone (PF) 1 drp OPB DIRECTED PRN .Dry eyes 11/09/22 11/09/22 History 1.4 %-0.6 % eye drops in a dropperette (Refresh Classic (PF)) tramadol 50 mg tablet 50 mg PO .Q4-6 PRN Pain 11/09/22 11/09/22 History Patient History Medical History Bifascicular block CAD (coronary artery disease) CKD (chronic kidney disease) stage 3, GFR 30-59 ml/min Claustrophobia COPD, moderate Entropion of left lower eyelid Fatty liver Gout History of fracture Thyroid cartilage in 2018 Interstitial lung disease Nephrolithiasis Osteoarthritis Pustular psoriasis Sarcoidosis possible- evaluated by pulmonary; felt no active sarcoidosis and would not merit steroid therapy given weight/diabetic state. 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 [employer] Pacer check 12/24/17 Status post incision and drainage Family History Mother Cancer Social History Smoking Status: Never smoker Second Hand Exposure: No; Do You Dip or Chew Tobacco: No; Hx Alcohol Use: No Hx Substance Use: No Preferred Language: Latvian Communication Ability: Effective Visual Impairment: Limited Hearing Ability: Normal Telecommunications Administrator Required: No Beliefs That Will Affect Care: None marital status: Single Current Living Situation: Personal Care Facility Current Living Situation Comment: [facility] current occupational status: retired How many Children do You have: 1 How many Children do You have Comment: children are not involved with care much per pt Feels Safe at Home: Yes Diet: diabetic Diet Comment: FLUID RESTRICTION caffeine: No during the past year weight has: other Physical Activity Frequency: Does not Exercise Gender Identity: Male Assistive Devices: Oxygen - at Night and Walker Review of Systems Review of Systems: All systems reviewed & are unremarkable except as noted in HPI & below Physical Exam Constitutional: well developed, well nourished and comfortable; no acute distress (+ chronically ill ) Eyes: Sclera anicteric, no conjunctival injection ENMT: moist mucous membranes, no pallor Neck: trachea midline supple Respiratory: normal resp effort. On O2 via NC Cardiovascular: + bilateral leg edema w/ venous stasis changes Gastrointestinal (Abdomen): normal bowel sounds, soft, nontender, no hepatosplenomegaly Inspection/Auscultation: abdomen not distended Neurologic: alert and oriented x 3, no obvious focal neuro deficit Psychiatric: normal mood and affect Results & Data Vital Signs (Past 12 Hours) Vital Signs Temp Pulse Pulse Resp BP BP Pulse Ox 11/10/22 12:10 36.6 C 96 H 18 134/73 100 11/10/22 08:00 107 H 11/10/22 07:59 36.8 C 70 19 122/88 96 11/10/22 03:00 36.7 C 92 H 16 146/66 H 94 11/10/22 01:00 105 H O2 Del Method O2 Flow Rate 11/10/22 12:10 Room Air 11/10/22 08:00 11/10/22 07:59 Nasal Cannula 2 11/10/22 03:00 Nasal Cannula 3 11/10/22 01:00 Laboratory Results 11/10/22 11/10/22 11/10/22 Range/Units 11:47 07:44 05:51 WBC (4.8-10.8) K/ul RBC (4.70-6.10) M/uL Hgb (14.0-18.0) g/dl Hct (42.0-52.0) % MCV (80.0-100.0) fL MCH (25.0-34.0) pg MCHC (32.0-36.0) g/dL RDW Std Deviation (36.4-46.3) fL RDW Coeff of Baldo (11.5-14.5) % Plt Count (130-400) K/uL MPV (9.4-12.4) fL PT (9.0-12.0) Seconds INR (0.9-1.1) APTT (21.0-31.0) Seconds PTT Ratio Sodium (136-145) mmol/L Potassium (3.5-5.1) mmol/L Chloride (98-107) mmol/L Carbon Dioxide (21-32) mmol/L Anion Gap (3-11) BUN (6-23) mg/dl Creatinine (0.6-1.4) mg/dl Est Cr Clr Drug Dosing ml/min Est GFR ( Amer) ml/min Est GFR (Non-Af Amer) ml/min BUN/Creatinine Ratio (10-20) Glucose (70-99(Fasting)) mg/dl POC Glucose 242 H 261 H (70-99) mg/dl Calcium (8.6-10.3) mg/dl Magnesium (1.7-2.4) mg/dl Troponin I High Sens (0-20) pg/ml Digoxin 1.0 (0.8-2.0) ng/ml 11/10/22 11/10/22 11/09/22 Range/Units 05:51 05:51 20:27 WBC 8.80 (4.8-10.8) K/ul RBC 4.39 L (4.70-6.10) M/uL Hgb 12.4 L (14.0-18.0) g/dl Hct 39.2 L (42.0-52.0) % MCV 89.3 (80.0-100.0) fL MCH 28.2 (25.0-34.0) pg MCHC 31.6 L (32.0-36.0) g/dL RDW Std Deviation 60.4 H (36.4-46.3) fL RDW Coeff of Baldo 18.7 H (11.5-14.5) % Plt Count 213 (130-400) K/uL MPV 11.3 (9.4-12.4) fL PT (9.0-12.0) Seconds INR (0.9-1.1) APTT (21.0-31.0) Seconds PTT Ratio Sodium 138 (136-145) mmol/L Potassium 3.8 (3.5-5.1) mmol/L Chloride 97 L (98-107) mmol/L Carbon Dioxide 31 (21-32) mmol/L Anion Gap 10 (3-11) BUN 19 (6-23) mg/dl Creatinine 1.27 (0.6-1.4) mg/dl Est Cr Clr Drug Dosing 79.0 ml/min Est GFR ( Amer) 65.9 ml/min Est GFR (Non-Af Amer) 56.9 ml/min BUN/Creatinine Ratio 15.0 (10-20) Glucose 236 H (70-99(Fasting)) mg/dl POC Glucose 303 H* (70-99) mg/dl Calcium 9.3 (8.6-10.3) mg/dl Magnesium (1.7-2.4) mg/dl Troponin I High Sens (0-20) pg/ml Digoxin (0.8-2.0) ng/ml 11/09/22 11/09/22 11/09/22 Range/Units 18:41 11:58 11:58 WBC (4.8-10.8) K/ul RBC (4.70-6.10) M/uL Hgb (14.0-18.0) g/dl Hct (42.0-52.0) % MCV (80.0-100.0) fL MCH (25.0-34.0) pg MCHC (32.0-36.0) g/dL RDW Std Deviation (36.4-46.3) fL RDW Coeff of Baldo (11.5-14.5) % Plt Count (130-400) K/uL MPV (9.4-12.4) fL PT 12.9 H (9.0-12.0) Seconds INR 1.2 H (0.9-1.1) APTT 35.0 H (21.0-31.0) Seconds PTT Ratio 1.2 Sodium 138 (136-145) mmol/L Potassium 3.4 L (3.5-5.1) mmol/L Chloride 97 L (98-107) mmol/L Carbon Dioxide 33 H (21-32) mmol/L Anion Gap 8 (3-11) BUN 20 (6-23) mg/dl Creatinine 1.32 (0.6-1.4) mg/dl Est Cr Clr Drug Dosing 77.3 ml/min Est GFR ( Amer) 62.9 ml/min Est GFR (Non-Af Amer) 54.3 ml/min BUN/Creatinine Ratio 15.2 (10-20) Glucose 335 H* (70-99(Fasting)) mg/dl POC Glucose 271 H (70-99) mg/dl Calcium 9.2 (8.6-10.3) mg/dl Magnesium 1.8 (1.7-2.4) mg/dl Troponin I High Sens 14.8 (0-20) pg/ml Digoxin (0.8-2.0) ng/ml Diagnostic Findings CTAP: IMPRESSION: 1. 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 Wedge-shaped hypodensity within the posterior segment of the right hepatic lobe also persists and may represent a subacute/chronic infarct or abnormal perfusion from the portal vein thrombosis. 2. Cardiomegaly with mild congestive change and trace bilateral pleural effusions. 3. Patchy airspace opacities within the left lower lobe favor a pneumonia. This has improved. 4. Small gallbladder remnant containing a few punctate gallstones. This remains unchanged. 5. No bowel wall thickening or obstruction. 6. Normal appendix. 7. No acute fractures. Specifically, no evidence for an acute left hip fracture. 8. Additional findings as described above.
[2022-11-10] MEDS: DIGOXIN 0.125 MG TAB PO SCH (15:12)
--- NOTE | 2022-11-10 15:20 | Hospitalist Progress Note ---
Date of Service November 10, 2022 Assessment & Plan (1) Recurrent falls: (2) Weakness: (3) Chronic diastolic CHF (congestive heart failure): (4) Persistent atrial fibrillation: (5) Portal vein thrombosis: (6) Diabetes mellitus, type 2: (7) Osteoarthritis: (8) Hypothyroidism: (9) Morbid obesity: (10) CKD (chronic kidney disease) stage 3, GFR 30-59 ml/min: (11) Chronic anticoagulation: (12) Wound of right leg: Plan 72-year-old male from [facility] with multiple medical conditions as below presented to the ED with recurrent fall. Had 5 episodes of fall past week. CT A/P- 1. 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 Wedge-shaped hypodensity within the posterior segment of the right hepatic lobe also persists and may represent a subacute/chronic infarct or abnormal perfusion from the portal vein thrombosis. 2. Cardiomegaly with mild congestive change and trace bilateral pleural effusions. 3. Patchy airspace opacities within the left lower lobe favor a pneumonia. This has improved. 4. Small gallbladder remnant containing a few punctate gallstones. This remains unchanged. 5. No bowel wall thickening or obstruction. 6. Normal appendix. 7. No acute fractures. Specifically, no evidence for an acute left hip fracture. Recurrent falls-likely from debility and morbid obesity. States his legs feel weak and he falls down. check orthostatic vitals. Will interrogate pacemaker for completeness. Telemetry reviewed-nothing suggestive, will continue to monitor on telemetry. Prior echo reviewed. PT OT evaluation. Uses walker with seat Portal vein thrombosis-subacute to chronic, seen in CT-details above. Seen by GI-no new recommendations. Continue Eliquis. Vascular surgery evaluation pending. Chronic diastolic CHF-does not look volume overloaded. Continue home diuretics. Daily weight, strict I and O's, monitor volume status Uncontrolled diabetes mellitus type 2 with hyperglycemia-continue Lantus, Humalog, sliding insulin. Adjust insulin as indicated. Persistent fibrillation status post prior ablation treatment-rate controlled, continue digoxin, Eliquis. 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 Interstitial lung disease/SALAS/possible amiodarone toxicity protocol/nocturnal hypoxemia-uses oxygen intermittently at night at home. Continue supplemental oxygen, wean off as tolerated. Goal saturation more than 92% Recent pustular psoriasis during recent admission-seen by dermatology and started on steroid cream. Still with rash. Will ask dermatology for reevaluation. Foot wound-continue local wound care. No cellulitis or infection currently- will monitor. Morbid obesity-BMI 49.5. Weight loss recommended. 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 He is on Wellbutrin, he does not want addition of new meds. DVT prophylaxis-Eliquis Disposition-pending medical stability. PT OT evaluation. Likely will need rehab. Updated daughter over the phone x2 Admission and Anticipated Discharge Date Admission Date: November 09, 2022 Subjective Patient was seen and examined at bedside. He feels okay. Denies any fever, chills, chest pain, shortness of breath, nausea or vomiting. States he is at his baseline weight. Denies any swelling. Still has the rash-matthew interm ittently, no itching. 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 Review of Systems Review of Systems: All systems reviewed & are unremarkable except as noted in Subjective Physical Exam Physical Exam: General: Morbidly obese, sick looking, sitting comfortably in the chair, on supplemental oxygen, not in acute distress HEENT: VERO, MMM Chest: Clear breath sounds bilaterally with basilar crackles CVS: Irregular, normal heart sounds, no murmur Abdomen: Soft, non tender, not distended, normal bowel sounds Neuro: Awake, alert, oriented, conversing well, non focal Extremities: No cyanosis, clubbing, trace edema, chronic venous stasis changes, chronic foot wounds Skin: Rash present on back, abdomen, thighs, groin Results & Data Results & Data Vital Signs (Past 12 Hours) Vital Signs Temp Pulse Pulse Resp BP Pulse Ox O2 Del Method 11/10/22 15:12 84 11/10/22 15:04 84 11/10/22 14:01 Nasal Cannula 11/10/22 12:10 36.6 C 96 H 18 134/73 100 Room Air 11/10/22 08:00 107 H 11/10/22 07:59 36.8 C 70 19 122/88 96 Nasal Cannula O2 Flow Rate 11/10/22 15:12 11/10/22 15:04 11/10/22 14:01 3 11/10/22 12:10 11/10/22 08:00 11/10/22 07:59 2 Laboratory Results Short CBC 11/10/22 Range/Units 05:51 WBC 8.80 (4.8-10.8) K/ul Hgb 12.4 L (14.0-18.0) g/dl Hct 39.2 L (42.0-52.0) % Plt Count 213 (130-400) K/uL BMP 11/10/22 05:51 Sodium 138 Potassium 3.8 Chloride 97 L Carbon Dioxide 31 BUN 19 Creatinine 1.27 Glucose 236 H Calcium 9.3 Diagnostic Findings Abdomen/Pelvis CT 11/09/22 10:[address] WITH IV CONTRAST CT DOSE: HISTORY: Fall. Generalized abdominal pain. TECHNIQUE: Multiaxial CT images of the abdomen and pelvis were performed following the use of intravenous contrast. A dose lowering technique was utilized adhering to the principles of ALARA. COMPARISON STUDY: Abdomen and pelvis CT 10/24/2022 and 10/12/2022. FINDINGS: Interval improvement in the patchy left lower lobe airspace opacities. Mild interlobular septal thickening within the lung bases suggestive of congestive change. Suture material noted within the right lung base. There are trace bilateral pleural effusions. The heart remains enlarged. Pacemaker wires are partially visualized. Prominent hilar and subcarinal lymph nodes are noted. No pneumoperitoneum. No pneumatosis. No acute fractures identified. Specifically, no acute fractures within the left hip. There are old, healed bilateral anterior rib fractures noted. Prior midline ventral hernia repair. Mild diffuse body wall edema is noted. Subtle nodular contour to the liver suggestive of early cirrhosis. Status post cholecystectomy. There is a small gallbladder remnant identified containing a few punctate stones. This remains unchanged. The main portal vein is patent. However, there is persistent thrombus identified within the posterior/inferior segmental branch of the right portal vein. This is best seen on image 137. This likely accounts for the wedge-shaped hypodensity within the posterior segment of the right hepatic lobe consistent with diminished perfusion/infarct. This is similar to the prior study and therefore favors a subacute to chronic process. The spleen, adrenal glands, and pancreas are unremarkable. No hydronephrosis. Normal caliber abdominal aorta with mild calcified plaque. No retroperitoneal lymphadenopathy. The bladder is unremarkable. The prostate gland is normal in size. No pelvic lymphadenopathy or pelvic free fluid. Moderate fecal retention. No bowel wall thickening or obstruction. Normal appendix. IMPRESSION: 1. 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 Wedge-shaped hypodensity within the posterior segment of the right hepatic lobe also persists and may represent a subacute/chronic infarct or abnormal perfusion from the portal vein thrombosis. 2. Cardiomegaly with mild congestive change and trace bilateral pleural effusions. 3. Patchy airspace opacities within the left lower lobe favor a pneumonia. This has improved. 4. Small gallbladder remnant containing a few punctate gallstones. This remains unchanged. 5. No bowel wall thickening or obstruction. 6. Normal appendix. 7. No acute fractures. Specifically, no evidence for an acute left hip fracture. 8. Additional findings as described above. ACT 112: Negative or not required by law. Electronically signed by: Stan Lopez M.D. 11/09/2022 2:33 PM Medications Administered Current Inpatient Medications Acetaminophen (Acetaminophen 325 Mg Tab) 650 mg PO Q4 PRN PRN Reason: Fever Or Pain Stop: 12/09/22 18:38 Albuterol (Albuterol Hfa 8 Gm Inhaler) 2 puffs INH Q4 PRN PRN Reason: Shortness Of Breath Or Wheezin Stop: 12/09/22 18:38 Allopurinol (Allopurinol 300 Mg Tab) 300 mg PO DAILY OFE Stop: 12/10/22 08:59 Last Admin: 11/10/22 09:08 Dose: 300 mg Apixaban (Apixaban 5 Mg Tablet) 5 mg PO Q12 OFE Stop: 12/09/22 20:59 Last Admin: 11/10/22 09:08 Dose: 5 mg Artificial Tears (Artificial Tears) 1 drops OP QID OFE Stop: 12/09/22 20:59 Last Admin: 11/10/22 13:04 Dose: 1 drops Aspirin (Aspirin 81 Mg Ectab) 81 mg PO DAILY [facility] Stop: 12/10/22 08:59 Last Admin: 11/10/22 09:09 Dose: 81 mg Atorvastatin Calcium (Atorvastatin 10 Mg Tab) 10 mg PO HS [facility] Stop: 12/09/22 20:59 Last Admin: 11/09/22 20:57 Dose: 10 mg Betamethasone Dipropion Augmented (Betamethasone Dip Aug (Diprolene) 0.05% Cr 50 Gm Tube) 1 appln EXT BID OFE Stop: 12/09/22 20:59 Last Admin: 11/10/22 09:09 Dose: 1 appln Bupropion HCl (Bupropion Xl 150 Mg Tabcr) 150 mg PO QAM OFE Stop: 12/10/22 08:59 Last Admin: 11/10/22 09:09 Dose: 150 mg Dextrose (Dextrose 50% 50 Ml Syringe) 25 - 50 ml IV UD PRN; Protocol PRN Reason: Hypoglycemia Protocol Stop: 12/09/22 18:38 Digoxin (Digoxin 0.125 Mg Tab) 0.125 mg PO DAILY@1600 [facility] Stop: 12/09/22 19:29 Last Admin: 11/10/22 15:12 Dose: 0.125 mg Duloxetine HCl (Duloxetine Hcl 60 Mg Cap) 60 mg PO DAILY OFE Stop: 12/10/22 08:59 Last Admin: 11/10/22 09:10 Dose: 60 mg Erythromycin (Erythromycin Op Oint 5 Mg/Gm 3.5 Gm Tube) 1 appln OPB HS [facility] Stop: 11/19/22 20:59 Last Admin: 11/09/22 20:58 Dose: 1 appln Furosemide (Furosemide 80 Mg Tab) 80 mg PO BID17 OFE Stop: 12/09/22 18:59 Last Admin: 11/10/22 09:10 Dose: 80 mg Gabapentin (Gabapentin 300 Mg Cap) 300 mg PO QID OFE Stop: 12/09/22 20:59 Last Admin: 11/10/22 13:04 Dose: 300 mg Glucagon (Glucagon For Inj 1 Mg Vial) 1 mg SQ UD PRN; Protocol PRN Reason: Hypoglycemia Protocol Stop: 12/09/22 18:38 Glucose (Glucose 10 Tab/Tube) 4 - 8 tab PO UD PRN; Protocol PRN Reason: Hypoglycemia Treatment Stop: 12/09/22 18:38 Glucose (Glucose 40% Gel 15 Gm Tube) 15 - 30 gm PO UD PRN; Protocol PRN Reason: Hypoglycemia Protocol Stop: 12/09/22 18:38 Insulin Aspart (Insulin Aspart Per Unit Charge) 0 units SC ACHS [facility] Stop: 12/09/22 20:59 Last Admin: 11/10/22 13:02 Dose: 18 units Insulin Glargine (Lantus Per Unit Charge) 60 units SQ BID [facility] Stop: 12/09/22 20:59 Last Admin: 11/10/22 09:47 Dose: 60 units Levothyroxine Sodium (Levothyroxine Sodium 125 Mcg Tablet) 250 mcg PO DAILYBB [facility] Stop: 12/10/22 06:29 Last Admin: 11/10/22 05:11 Dose: 250 mcg Lidocaine (Lidocaine 5% 1 Patch) 1 patch TD DAILY [facility] Stop: 12/10/22 08:59 Last Admin: 11/10/22 09:10 Dose: 1 patch Loratadine (Loratadine 10 Mg Tab) 20 mg PO DAILY PRN PRN Reason: .allergies Stop: 12/09/22 18:38 Magnesium Oxide (Magnesium Oxide 400 Mg Tab) 400 mg PO DAILY [facility] Stop: 12/10/22 08:59 Last Admin: 11/10/22 09:11 Dose: 400 mg Metoprolol Succinate (Metoprolol Succ 50mg Ext Rel Tab) 100 mg PO BID [facility] Stop: 12/09/22 20:59 Last Admin: 11/10/22 09:11 Dose: 100 mg Miscellaneous (Carbohydrates For Hypoglycemia ) 15 - 30 gm PO UD PRN PRN Reason: Hypoglycemia Protocol Stop: 12/09/22 18:38 Miscellaneous (Remove Lidoderm Patch) 1 each N/A DAILY@2100 [facility] Stop: 12/09/22 20:59 Last Admin: 11/09/22 21:01 Dose: 1 each Miscellaneous Information (Pharmacy Glycemic Mgmt Consult) 1 each N/A UD PRN PRN Reason: Consult Stop: 12/09/22 18:38 Multivitamins/Minerals (Cerovite Adv Formula Tab) 1 tab PO DAILY [facility] Stop: 12/10/22 08:59 Last Admin: 11/10/22 09:11 Dose: 1 tab Naphazoline HCl/Pheniramine Maleate (Naphazolin/Pheniramin Oph Soln 75 Drops/5 Ml Btl) 2 drops OP Q6 PRN PRN Reason: Eye Irritation Stop: 12/09/22 18:38 Last Admin: 11/09/22 20:56 Dose: 2 drops Nystatin (Nystatin Powder 15gm Btl) 1 appln EXT BID OFE Stop: 12/09/22 20:59 Last Admin: 11/10/22 09:11 Dose: 1 appln Pantoprazole Sodium (Pantoprazole 40 Mg Tab) 40 mg PO QAM OFE Stop: 12/10/22 08:59 Last Admin: 11/10/22 09:11 Dose: 40 mg Polyethylene Glycol (Polyethylene (Miralax) 17 Gm Pack) 17 gm PO DAILY PRN PRN Reason: Constipation Stop: 12/09/22 18:38 Potassium Chloride (Potassium Chloride Crtab 20 Meq Tabcr) 20 meq PO BID [facility]E Stop: 12/09/22 20:59 Last Admin: 11/10/22 10:06 Dose: 20 meq Sennosides (Senna 8.6 Mg Tab) 8.6 mg PO BID [facility] Stop: 12/09/22 20:59 Last Admin: 11/10/22 09:11 Dose: 8.6 mg Spironolactone (Spironolactone 25 Mg Tab) 25 mg PO DAILY OFE Stop: 12/10/22 08:59 Last Admin: 11/10/22 09:11 Dose: 25 mg Tramadol HCl (Tramadol Hcl 50 Mg Tablet) 50 mg PO Q6H PRN PRN Reason: Pain Stop: 12/09/22 18:38 Last Admin: 11/10/22 11:09 Dose: 50 mg Vitamin D (Cholecalciferol 1,000 Units 25 Mcg Tab) 2,000 units PO DAILY OFE Stop: 12/10/22 08:59 Last Admin: 11/10/22 09:10 Dose: 2,000 units (6) Diabetes mellitus, type 2 Diabetes mellitus complication detail: without coma Diabetes mellitus complication status: with hypoglycemia Diabetes mellitus half-way insulin use: with exterminator helper use Qualified Code(s): E11.649 - Type 2 diabetes mellitus with hypoglycemia without coma; Z79.4 - MCC (current) use of insulin (8) Hypothyroidism Hypothyroidism type: unspecified Qualified Code(s): E03.9 - Hypothyroidism, unspecified (10) CKD (chronic kidney disease) stage 3, GFR 30-59 ml/min Chronic kidney disease stage 3 subtype: unspecified whether 3a or 3b Qualified Code(s): N18.30 - Chronic kidney disease, stage 3 unspecified
[2022-11-10] MEDS: ERYTHROMYCIN OP OINT 5 MG/GM 3.5 GM TUBE OPB SCH (22:00)
[2022-11-10] MEDS: MUPIROCIN 2% OINT 22 GM TUBE EXT SCH (22:02)
[2022-11-10] MEDS: ATORVASTATIN 10 MG TAB PO SCH (22:36)
[2022-11-11] MEDS: LEVOTHYROXINE SODIUM 125 MCG TABLET PO SCH (05:32)
[2022-11-11 07:43] LABS: Hematocrit (blood only) 38.7 % (42.0-52.0); Hemoglobin 12.4 g/dl (14.0-18.0); Mean Corpuscular Hemoglobin 28.3 pg (25.0-34.0); Mean Corpuscular Volume 88.4 fL (80.0-100.0); Mean Platelet Volume 11.5 fL (9.4-12.4); Platelet Count 191 K/uL (130-400); RDW Coefficient of Variation 18.7 % (11.5-14.5); RDW Standard Deviation 60.7 fL (36.4-46.3); Red Blood Count 4.38 M/uL (4.70-6.10); White Blood Count 8.53 K/ul (4.8-10.8)
[2022-11-11] MEDS: APIXABAN 5 MG TABLET PO SCH ×2 (08:34→20:08)
[2022-11-11] MEDS: POTASSIUM CHLORIDE CRTAB 20 MEQ TABCR PO SCH ×2 (08:35→20:19)
[2022-11-11] MEDS: SENNA 8.6 MG TAB PO SCH ×2 (08:35→20:19)
[2022-11-11] MEDS: DULoxetine HCL 60 MG CAP PO SCH (08:35)
[2022-11-11] MEDS: FUROSEMIDE 80 MG TAB PO SCH ×2 (08:35→16:47)
[2022-11-11] MEDS: GABAPENTIN 300 MG CAP PO SCH ×4 (08:35→20:16)
[2022-11-11] MEDS: METOPROLOL SUCC 50MG EXT REL TAB PO SCH ×2 (08:35→20:17)
[2022-11-11] MEDS: MAGNESIUM OXIDE 400 MG TAB PO SCH (08:36)
[2022-11-11] MEDS: buPROPion XL 150 MG TABCR PO SCH (08:36)
[2022-11-11] MEDS: SPIRONOLACTONE 25 MG TAB PO SCH (08:36)
[2022-11-11] MEDS: PANTOprazole 40 MG TAB PO SCH (08:36)
[2022-11-11] MEDS: CHOLECALCIFEROL 1,000 UNITS 25 MCG TAB PO SCH (08:36)
[2022-11-11] MEDS: CEROVITE ADV FORMULA TAB PO SCH (08:36)
[2022-11-11] MEDS: ASPIRIN 81 MG ECTAB PO SCH (08:36)
[2022-11-11] MEDS: allopurinoL 300 MG TAB PO SCH (08:37)
[2022-11-11] MEDS: ARTIFICIAL TEARS OP SCH ×4 (08:40→20:09)
[2022-11-11] MEDS: LIDOCAINE 5% 1 PATCH TD SCH (08:40)
[2022-11-11] MEDS: NYSTATIN POWDER 15GM BTL EXT SCH ×2 (08:41→21:19)
[2022-11-11] MEDS: BETAMETHASONE DIP AUG (DIPROLENE) 0.05% CR 50 GM TUBE EXT SCH ×2 (08:41→20:11)
[2022-11-11] MEDS: MUPIROCIN 2% OINT 22 GM TUBE EXT SCH ×2 (08:42→20:18)
[2022-11-11] MEDS: INSULIN ASPART PER UNIT CHARGE SC SCH ×4 (08:47→20:29)
[2022-11-11] MEDS: LANTUS PER UNIT CHARGE SQ SCH ×2 (08:47→20:30)
[2022-11-11 09:17] LABS: BUN Creatinine Ratio 15.5 (10-20); Calcium 9.3 mg/dl (8.6-10.3); Creatinine Clr Calc Pharmacy 69.6 ml/min; Est GFR (African American) 57.6 ml/min; Est GFR (Non-African American) 49.7 ml/min; Magnesium 1.7 mg/dl (1.7-2.4); Phosphorus 3.9 mg/dl (2.5-4.9); Potassium 4.6 mmol/L (3.5-5.1)
--- NOTE | 2022-11-11 10:04 | Consultation ---
Date of Consultation November 11, 2022 Assessment & Plan (1) Portal vein thrombosis: Pt with incidental finding of portal vein thrombosis which appears chronic. Treatment recommendations include anticoagulation, which pt is already taking. No indications for vascular surgical intervention at this time. Please call if needed. History of Present Illness Reason for Consultation: portal vein thrombosis Attending Physician: Sid Leroy MD History of Present Illness 72 yo m with hx of DMII, HTN, pacemaker d/t tachy sherry syndrome, hypothyroidism, a fib/flutter on AC with apixaban, sarcoidosis, gout, hyperlipidemia, chronic venous insufficiency, SALAS, CHF, admitted and found to have a portal ana m thrombosis and hepatic infarct. Pt denies any abd pain presently. Is chronically on eliquis for afib/flutter for past 1-2 years. Has had toe/foot ulcers in past and currently sees the [facility] wound care for BL toe wounds. Has BL edema chronically. Denies SIMPSON, fever, chest pain SOB, abd pain, N/V, rest pain, claudication, other complaints. CT abd/pelvis demonstrates portal v thrombosis and partial infarct, which appears chronic. Allergies Allergy/AdvReac Type Severity Reaction Status Date / Time No Known Allergies Allergy Verified 11/09/22 15:23 Home Medications Medication Instructions Recorded Confirmed Type acetaminophen 325 mg tablet 650 mg PO Q4 PRN Fever Or Pain 06/15/22 11/09/22 History (Tylenol) albuterol sulfate 90 mcg/actuation 2 puff inhalation Q4 PRN Shortness 06/15/22 11/09/22 History aerosol inhaler Of Breath Or Wheezing allopurinol 300 mg tablet 300 mg PO DAILY 06/15/22 11/09/22 History apixaban 5 mg tablet 5 mg PO Q12 06/15/22 11/09/22 History aspirin 81 mg tablet,delayed 81 mg PO DAILY 06/15/22 11/09/22 History release atorvastatin 10 mg tablet 10 mg PO HS 06/15/22 11/09/22 History bupropion HCl 150 mg 24 hr tablet, 150 mg PO QAM 06/15/22 11/09/22 History extended release cholecalciferol (vitamin D3) 25 50 mcg PO DAILY 06/15/22 11/09/22 History mcg (1,000 unit) tablet (Vitamin D3) digoxin 125 mcg (0.125 mg) tablet 125 mcg PO DAILY 06/15/22 11/09/22 History duloxetine 60 mg capsule,delayed 60 mg PO DAILY 06/15/22 11/09/22 History release epinephrine 0.3 mg/0.3 mL 0.3 mg IM DIRECTED PRN Allergic 06/15/22 11/09/22 History injection, auto-injector Reaction erythromycin 5 mg/gram (0.5 %) eye 1 applic OPB HS 06/15/22 11/09/22 History ointment gabapentin 300 mg capsule 300 mg PO QID 06/15/22 11/09/22 History levothyroxine 125 mcg tablet 250 mcg PO DAILY 06/15/22 11/09/22 History lidocaine 5 % topical patch 1 patch topical DAILY 06/15/22 11/09/22 History loratadine 10 mg tablet 20 mg PO DAILY PRN .allergies 06/15/22 11/09/22 History magnesium oxide 420 mg tablet 420 mg PO DAILY 06/15/22 11/09/22 History naphazoline 0.025 %-pheniramine 2 drp ophthalmic (eye) Q6 PRN Eye 06/15/22 11/09/22 History 0.3 % eye drops (Naphcon-A) Irritation nitroglycerin 0.4 mg sublingual 0.4 mg sublingual DIRECTED PRN 06/15/22 11/09/22 History tablet (Nitrostat) Chest Pain nystatin 100,000 unit/gram topical 1 applic topical BID 06/15/22 11/09/22 History powder omeprazole 20 mg capsule,delayed 20 mg PO QAM 06/15/22 11/09/22 History release polyvinyl alcohol-povidone (PF) 1 drp OPB QID 06/15/22 11/09/22 History 1.4 %-0.6 % eye drops in a dropperette (Refresh Classic (PF)) sennosides 8.6 mg tablet (senna) 8.6 mg PO BID 06/15/22 11/09/22 History metoprolol succinate 50 mg 100 mg PO BID #60 tabs 06/23/22 11/09/22 Rx tablet,extended release 24 hr insulin regular human 100 unit/mL 1 sliding scale dose subcut 07/29/22 11/09/22 History (3 mL) subcutaneous pen (Novolin R USEASDIRECTD FlexPen) potassium chloride 20 mEq 20 meq PO BID #60 tabs 08/01/22 11/09/22 Rx tablet,extended release(part/cryst) insulin glargine 100 unit/mL 60 unit subcut BID 10/12/22 11/09/22 History subcutaneous solution multivitamin with minerals 1 tab PO DAILY 10/12/22 11/09/22 History spironolactone 25 mg tablet 25 mg PO DAILY 10/12/22 11/09/22 History vit C 250 mg-vit E 90 mg-zinc 40 1 tab PO BID 10/12/22 11/09/22 History mg-copper 1 xp-oncyil-sbrbom capsule (PreserVision AREDS-2) furosemide 80 mg tablet 80 mg PO BID 10/25/22 11/09/22 History betamethasone dipropionate 0.05 % 1 applic topical BID #45 grams 10/28/22 11/09/22 Rx topical cream insulin regular human 100 unit/mL 20 unit (0.2 mL) subcut TIDM #10 mL 10/29/22 11/09/22 Rx injection solution (Novolin R Regular U-100 Insulin) polyvinyl alcohol-povidone (PF) 1 drp OPB DIRECTED PRN .Dry eyes 11/09/22 11/09/22 History 1.4 %-0.6 % eye drops in a dropperette (Refresh Classic (PF)) tramadol 50 mg tablet 50 mg PO .Q4-6 PRN Pain 11/09/22 11/09/22 History Patient History Medical History Bifascicular block CAD (coronary artery disease) CKD (chronic kidney disease) stage 3, GFR 30-59 ml/min Claustrophobia COPD, moderate Entropion of left lower eyelid Fatty liver Gout History of fracture Thyroid cartilage in 2019 Interstitial lung disease Nephrolithiasis Osteoarthritis Pustular psoriasis Sarcoidosis possible- evaluated by pulmonary; felt no active sarcoidosis and would not merit steroid therapy given weight/diabetic state. 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 [employer] Pacer check 12/24/17 Status post incision and drainage Family History Mother Cancer Social History Smoking Status: Never smoker Second Hand Exposure: No; Do You Dip or Chew Tobacco: No; Hx Alcohol Use: No Hx Substance Use: No Preferred Language: Kosovan Communication Ability: Effective Visual Impairment: Limited Hearing Ability: Normal Radio Broadcaster Required: No Beliefs That Will Affect Care: None marital status: Single Current Living Situation: Personal Care Facility Current Living Situation Comment: [facility] current occupational status: retired How many Children do You have: 1 How many Children do You have Comment: children are not involved with care much per pt Feels Safe at Home: Yes Diet: diabetic Diet Comment: FLUID RESTRICTION caffeine: No during the past year weight has: other Physical Activity Frequency: Does not Exercise Gender Identity: Male Assistive Devices: Oxygen - at Night and Walker Review of Systems Review of Systems: All systems reviewed & are unremarkable except as noted in HPI & below Physical Exam Constitutional: WD/WN, vitals as above + morbidly obese and cooperative; not in distress ENMT: Ears: no hearing impairment Neck: trachea midline Respiratory: normal respiratory effort, lungs clear to auscultation Auscultation: + diminished lung sounds Cardiovascular: Rate/Rhythm: + irregularly irregular Vessels: posterior tibial pulses present, dorsalis pedis pulses present and radial pulses present; + abnormal peripheral pulses Extremities: normal capillary refill and + edema Gastrointestinal (Abdomen): Inspection/Auscultation: abdomen normal to inspection and normal bowel sounds Percussion/Palpation: abdomen soft; abdomen nontender Musculoskeletal: no cyanosis or clubbing, extremities motor strength 5/5 Skin: no rashes, warm and dry Neurologic: moves all extremities and awake; no focal motor deficits and not confused Psychiatric: A+Ox3, euthymic affect Results & Data Vital Signs (Past 12 Hours) Vital Signs Temp Pulse Pulse Resp BP BP Pulse Ox 11/11/22 07:56 36.6 C 88 20 155/93 H 97 11/11/22 07:20 91 H 11/11/22 04:00 36.3 C L 89 20 155/72 H 95 11/11/22 01:21 11/10/22 22:03 114 H 11/10/22 23:21 36.3 C L 97 H 18 127/76 93 O2 Del Method O2 Flow Rate 11/11/22 07:56 Nasal Cannula 3 11/11/22 07:20 11/11/22 04:00 Nasal Cannula 3 11/11/22 01:21 Nasal Cannula 3 11/10/22 22:03 11/10/22 23:21 Nasal Cannula 3
--- NOTE | 2022-11-11 10:32 | Electrocardiogram Report ---
Test Reason : Blood Pressure : / mmHG Vent. Rate : 092 BPM Atrial Rate : 136 BPM P-R Int : 000 ms QRS Dur : 156 ms QT Int : 406 ms P-R-T Axes : 000 -71 100 degrees QTc Int : 502 ms Atrial fibrillation with occasional ventricular-paced complexes and with premature ventricular or feliberto rrantly conducted complexes Right bundle branch block Left anterior fascicular block Bifascicular block Possible Lateral infarct , age undetermined Cannot rule out Inferior infarct (masked by fascicular block?) , age undetermined Abnormal ECG When compared with ECG of 25-OCT-2022 06:22, Rare Electronic ventricular pacemaker has replaced Atrial fibrillation Confirmed by Arley Newman ([id number]) on 11/11/2022 10:31:41 AM Referred By: [facility] Confirmed By:Arley Newman
--- NOTE | 2022-11-11 13:39 | Hospitalist Progress Note ---
Date of Service November 11, 2022 Assessment & Plan (1) Recurrent falls: (2) Weakness: (3) Chronic diastolic CHF (congestive heart failure): (4) Persistent atrial fibrillation: (5) Portal vein thrombosis: (6) Diabetes mellitus, type 2: (7) Osteoarthritis: (8) Hypothyroidism: (9) Morbid obesity: (10) CKD (chronic kidney disease) stage 3, GFR 30-59 ml/min: (11) Chronic anticoagulation: (12) Wound of right leg: Plan 72-year-old male from [facility] with multiple medical conditions as below presented to the ED with recurrent fall. Had 5 episodes of fall past week. CT A/P- 1. 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 Wedge-shaped hypodensity within the posterior segment of the right hepatic lobe also persists and may represent a subacute/chronic infarct or abnormal perfusion from the portal vein thrombosis. 2. Cardiomegaly with mild congestive change and trace bilateral pleural effusions. 3. Patchy airspace opacities within the left lower lobe favor a pneumonia. This has improved. 4. Small gallbladder remnant containing a few punctate gallstones. This remains unchanged. 5. No bowel wall thickening or obstruction. 6. Normal appendix. 7. No acute fractures. Specifically, no evidence for an acute left hip fracture. Recurrent falls-likely from debility and morbid obesity. States his legs feel weak and he falls down. Pacemaker interrogation per cardiology, orthostatic vitals, telemetry reviewed. Prior echo reviewed. PT OT evaluation. Uses walker with seat Portal vein thrombosis-subacute to chronic, seen in CT-details above. Seen by GI and vascular surgery-no new recommendations. Continue Eliquis. Chronic diastolic CHF-does not look volume overloaded. Continue home diuretics. Daily weight, strict I and O's, monitor volume status Uncontrolled diabetes mellitus type 2 with hyperglycemia-continue Lantus, Humalog, sliding insulin. Adjust insulin as indicated. Persistent fibrillation status post prior ablation treatment-rate controlled, continue digoxin, Eliquis. 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 Interstitial lung disease/SALAS/possible amiodarone toxicity protocol/nocturnal hypoxemia-uses oxygen intermittently at night at home. Continue supplemental oxygen, wean off as tolerated. Goal saturation more than 92% Recent pustular psoriasis during recent admission-seen by dermatology on 10/28 and started on steroid cream with improvement in rash-images reviewed with Dr. Gallardo and compared to prior. Continue steroid cream. Follow-up with dermatology as outpatient Foot wound-continue local wound care. No cellulitis or infection currently- will monitor. Morbid obesity-BMI 49.5. Weight loss recommended. 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 He is on Wellbutrin, he does not want addition of new meds. DVT prophylaxis-Eliquis Disposition-anticipate discharge in 1 to 2 days. Continue PT Unable to reach daughter over the phone Admission and Anticipated Discharge Date Admission Date: November 09, 2022 Subjective Patient was seen and examined at bedside. States he feels good. He denies any ongoing issues. Denies any shortness of breath, chest pain, nausea or vomiting. Review of Systems Review of Systems: All systems reviewed & are unremarkable except as noted in Subjective Physical Exam Physical Exam: General: Morbidly obese sick looking, lying comfortably in bed, not in distress, on NC HEENT: EOMI, VERO, MMM Chest: Clear breath sounds bilaterally with mild basilar crackles CVS: Irregular, normal heart sounds, no murmur Abdomen: Soft, non tender, not distended, normal bowel sounds Neuro: Awake, alert, oriented, conversing well, non focal Extremities: No cyanosis, clubbing. Trace edema. Chronic venous stasis changes. Chronic foot wound with dressing Skin: Rash noted on abdomen/back/thighs/groin-improved from 2 weeks back-images reviewed with rheumatology Dr. Gallardo Results & Data Results & Data Vital Signs (Past 12 Hours) Vital Signs Temp Pulse Pulse Resp BP BP Pulse Ox 11/11/22 10:59 36.4 C L 74 20 132/78 94 11/11/22 07:56 36.6 C 88 20 155/93 H 97 11/11/22 07:20 91 H 11/11/22 04:00 36.3 C L 89 20 155/72 H 95 O2 Del Method O2 Flow Rate 11/11/22 10:59 Nasal Cannula 3 11/11/22 07:56 Nasal Cannula 3 11/11/22 07:20 11/11/22 04:00 Nasal Cannula 3 Laboratory Results Short CBC 11/11/22 Range/Units 06:11 WBC 8.53 (4.8-10.8) K/ul Hgb 12.4 L (14.0-18.0) g/dl Hct 38.7 L (42.0-52.0) % Plt Count 191 (130-400) K/uL BMP 11/11/22 06:11 Sodium 141 Potassium 4.6 D Chloride 98 Carbon Dioxide 36 H BUN 22 Creatinine 1.42 H Glucose 156 H Calcium 9.3 Medications Administered Current Inpatient Medications Acetaminophen (Acetaminophen 325 Mg Tab) 650 mg PO Q4 PRN PRN Reason: Fever Or Pain Stop: 12/09/22 18:38 Albuterol (Albuterol Hfa 8 Gm Inhaler) 2 puffs INH Q4 PRN PRN Reason: Shortness Of Breath Or Wheezin Stop: 12/09/22 18:38 Allopurinol (Allopurinol 300 Mg Tab) 300 mg PO DAILY OFE Stop: 12/10/22 08:59 Last Admin: 11/11/22 08:37 Dose: 300 mg Apixaban (Apixaban 5 Mg Tablet) 5 mg PO Q12 OFE Stop: 12/09/22 20:59 Last Admin: 11/11/22 08:34 Dose: 5 mg Artificial Tears (Artificial Tears) 1 drops OP QID OFE Stop: 12/09/22 20:59 Last Admin: 11/11/22 12:43 Dose: 1 drops Aspirin (Aspirin 81 Mg Ectab) 81 mg PO DAILY OFE Stop: 12/10/22 08:59 Last Admin: 11/11/22 08:36 Dose: 81 mg Atorvastatin Calcium (Atorvastatin 10 Mg Tab) 10 mg PO HS OFE Stop: 12/09/22 20:59 Last Admin: 11/10/22 22:36 Dose: 10 mg Betamethasone Dipropion Augmented (Betamethasone Dip Aug (Diprolene) 0.05% Cr 50 Gm Tube) 1 appln EXT BID OFE Stop: 12/09/22 20:59 Last Admin: 11/11/22 08:41 Dose: 1 appln Bupropion HCl (Bupropion Xl 150 Mg Tabcr) 150 mg PO QAM [facility] Stop: 12/10/22 08:59 Last Admin: 11/11/22 08:36 Dose: 150 mg Dextrose (Dextrose 50% 50 Ml Syringe) 25 - 50 ml IV UD PRN; Protocol PRN Reason: Hypoglycemia Protocol Stop: 12/09/22 18:38 Digoxin (Digoxin 0.125 Mg Tab) 0.125 mg PO DAILY@1600 [facility] Stop: 12/09/22 19:29 Last Admin: 11/10/22 15:12 Dose: 0.125 mg Duloxetine HCl (Duloxetine Hcl 60 Mg Cap) 60 mg PO DAILY OFE Stop: 12/10/22 08:59 Last Admin: 11/11/22 08:35 Dose: 60 mg Erythromycin (Erythromycin Op Oint 5 Mg/Gm 3.5 Gm Tube) 1 appln OPB HS [facility] Stop: 11/19/22 20:59 Last Admin: 11/10/22 22:00 Dose: 1 appln Furosemide (Furosemide 80 Mg Tab) 80 mg PO BID17 OFE Stop: 12/09/22 18:59 Last Admin: 11/11/22 08:35 Dose: 80 mg Gabapentin (Gabapentin 300 Mg Cap) 300 mg PO QID OFE Stop: 12/09/22 20:59 Last Admin: 11/11/22 12:44 Dose: 300 mg Glucagon (Glucagon For Inj 1 Mg Vial) 1 mg SQ UD PRN; Protocol PRN Reason: Hypoglycemia Protocol Stop: 12/09/22 18:38 Glucose (Glucose 10 Tab/Tube) 4 - 8 tab PO UD PRN; Protocol PRN Reason: Hypoglycemia Treatment Stop: 12/09/22 18:38 Glucose (Glucose 40% Gel 15 Gm Tube) 15 - 30 gm PO UD PRN; Protocol PRN Reason: Hypoglycemia Protocol Stop: 12/09/22 18:38 Insulin Aspart (Insulin Aspart Per Unit Charge) 0 units SC ACHS [facility] Stop: 12/09/22 20:59 Last Admin: 11/11/22 12:43 Dose: 12 units Insulin Glargine (Lantus Per Unit Charge) 60 units SQ BID [facility] Stop: 12/09/22 20:59 Last Admin: 11/11/22 08:47 Dose: 60 units Levothyroxine Sodium (Levothyroxine Sodium 125 Mcg Tablet) 250 mcg PO DAILYBB [facility] Stop: 12/10/22 06:29 Last Admin: 11/11/22 05:32 Dose: 250 mcg Lidocaine (Lidocaine 5% 1 Patch) 1 patch TD DAILY [facility] Stop: 12/10/22 08:59 Last Admin: 11/11/22 08:40 Dose: Not Given Loratadine (Loratadine 10 Mg Tab) 20 mg PO DAILY PRN PRN Reason: .allergies Stop: 12/09/22 18:38 Magnesium Oxide (Magnesium Oxide 400 Mg Tab) 400 mg PO DAILY [facility] Stop: 12/10/22 08:59 Last Admin: 11/11/22 08:36 Dose: 400 mg Metoprolol Succinate (Metoprolol Succ 50mg Ext Rel Tab) 100 mg PO BID [facility] Stop: 12/09/22 20:59 Last Admin: 11/11/22 08:35 Dose: 100 mg Miscellaneous (Carbohydrates For Hypoglycemia ) 15 - 30 gm PO UD PRN PRN Reason: Hypoglycemia Protocol Stop: 12/09/22 18:38 Miscellaneous (Remove Lidoderm Patch) 1 each N/A DAILY@2100 [facility] Stop: 12/09/22 20:59 Last Admin: 11/10/22 22:03 Dose: 1 each Miscellaneous Information (Pharmacy Glycemic Mgmt Consult) 1 each N/A UD PRN PRN Reason: Consult Stop: 12/09/22 18:38 Multivitamins/Minerals (Cerovite Adv Formula Tab) 1 tab PO DAILY [facility] Stop: 12/10/22 08:59 Last Admin: 11/11/22 08:36 Dose: 1 tab Mupirocin (Mupirocin 2% Oint 22 Gm Tube) 1 appln EXT BID [facility] Stop: 12/10/22 20:59 Last Admin: 11/11/22 08:42 Dose: 1 appln Naphazoline HCl/Pheniramine Maleate (Naphazolin/Pheniramin Oph Soln 75 Drops/5 Ml Btl) 2 drops OP Q6 PRN PRN Reason: Eye Irritation Stop: 12/09/22 18:38 Last Admin: 11/09/22 20:56 Dose: 2 drops Nystatin (Nystatin Powder 15gm Btl) 1 appln EXT BID [facility] Stop: 12/09/22 20:59 Last Admin: 11/11/22 08:41 Dose: 1 appln Pantoprazole Sodium (Pantoprazole 40 Mg Tab) 40 mg PO QAM [facility] Stop: 12/10/22 08:59 Last Admin: 11/11/22 08:36 Dose: 40 mg Polyethylene Glycol (Polyethylene (Miralax) 17 Gm Pack) 17 gm PO DAILY PRN PRN Reason: Constipation Stop: 12/09/22 18:38 Potassium Chloride (Potassium Chloride Crtab 20 Meq Tabcr) 20 meq PO BID [facility] Stop: 12/09/22 20:59 Last Admin: 11/11/22 08:35 Dose: 20 meq Sennosides (Senna 8.6 Mg Tab) 8.6 mg PO BID [facility] Stop: 12/09/22 20:59 Last Admin: 11/11/22 08:35 Dose: 8.6 mg Spironolactone (Spironolactone 25 Mg Tab) 25 mg PO DAILY OFE Stop: 12/10/22 08:59 Last Admin: 11/11/22 08:36 Dose: 25 mg Tramadol HCl (Tramadol Hcl 50 Mg Tablet) 50 mg PO Q6H PRN PRN Reason: Pain Stop: 12/09/22 18:38 Last Admin: 11/10/22 11:09 Dose: 50 mg Vitamin D (Cholecalciferol 1,000 Units 25 Mcg Tab) 2,000 units PO DAILY OFE Stop: 12/10/22 08:59 Last Admin: 11/11/22 08:36 Dose: 2,000 units (6) Diabetes mellitus, type 2 Diabetes mellitus computer terminal 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 insulin use: with senior living use Diabetes mellitus complication status: with hypoglycemia Diabetes mellitus complication detail: without coma Qualified Code(s): E11.649 - Type 2 diabetes mellitus with hypoglycemia without coma; Z79.4 - ocean transportation intermediary (current) use of insulin (8) Hypothyroidism Hypothyroidism type: unspecified Qualified Code(s): E03.9 - Hypothyroidism, unspecified (10) CKD (chronic kidney disease) stage 3, GFR 30-59 ml/min Chronic kidney disease stage 3 subtype: unspecified whether 3a or 3b Qualified Code(s): N18.30 - Chronic kidney disease, stage 3 unspecified
[2022-11-11] MEDS: DIGOXIN 0.125 MG TAB PO SCH (16:47)
--- NOTE | 2022-11-11 17:18 | Cardiology Consultation ---
Date of Consultation November 11, 2022 Assessment & Plan (1) Persistent atrial fibrillation: (2) Recurrent falls: - Patient seemingly with recurrent falls due to ambulatory dysfunction, generalized weakness and unsteadiness on his feet rather than cardiac syncope. Telemetry reveals rate controlled atrial fibrillation in the range of 70 to 80 bpm with occasional PVCs and ventricular paced QRS complexes. The patient has a history of dual-chamber permanent pacemaker. Remote interrogation performed with the assistance of the [employer] agricultural sales representative. Persistent atrial fibrillation observed without additional arrhythmia. Pacemaker function normal. Patient with history of chronic heart failure with preserved ejection fraction. He appears well compensated compared to his usual baseline. Would continue his current dose of furosemide 80 mg twice daily, spironolactone 25 mg daily. Continue metoprolol 100 mg twice daily. Continue Eliquis 5 mg twice daily. Please call with any questions or concerns. History of Present Illness Attending Physician: Sid Leroy MD History of Present Illness Mr Andujar is a 72-year-old male seen in cardiology consultation per the request of Dr. Leroy for evaluation of recurrent falls. Patient states that he has been living at [facility] for a little over the year. He had recently been admitted from 10/25/2022 until 10/29/2022 at which time he was treated for pneumonia and an erythematous rash on his abdomen and back. He presented with recurrent falls. Per my discussion with him, he denies lightheadedness, dizziness, or sensation like he has blacked out. He notes generalized weakness of his legs. Allergies Allergy/AdvReac Type Severity Reaction Status Date / Time No Known Allergies Allergy Verified 11/09/22 15:23 Home Medications Medication Instructions Recorded Confirmed Type acetaminophen 325 mg tablet 650 mg PO Q4 PRN Fever Or Pain 06/15/22 11/09/22 History (Tylenol) albuterol sulfate 90 mcg/actuation 2 puff inhalation Q4 PRN Shortness 06/15/22 11/09/22 History aerosol inhaler Of Breath Or Wheezing allopurinol 300 mg tablet 300 mg PO DAILY 06/15/22 11/09/22 History apixaban 5 mg tablet 5 mg PO Q12 06/15/22 11/09/22 History aspirin 81 mg tablet,delayed 81 mg PO DAILY 06/15/22 11/09/22 History release atorvastatin 10 mg tablet 10 mg PO HS 06/15/22 11/09/22 History bupropion HCl 150 mg 24 hr tablet, 150 mg PO QAM 06/15/22 11/09/22 History extended release cholecalciferol (vitamin D3) 25 50 mcg PO DAILY 06/15/22 11/09/22 History mcg (1,000 unit) tablet (Vitamin D3) digoxin 125 mcg (0.125 mg) tablet 125 mcg PO DAILY 06/15/22 11/09/22 History duloxetine 60 mg capsule,delayed 60 mg PO DAILY 06/15/22 11/09/22 History release epinephrine 0.3 mg/0.3 mL 0.3 mg IM DIRECTED PRN Allergic 06/15/22 11/09/22 History injection, auto-injector Reaction erythromycin 5 mg/gram (0.5 %) eye 1 applic OPB HS 06/15/22 11/09/22 History ointment gabapentin 300 mg capsule 300 mg PO QID 06/15/22 11/09/22 History levothyroxine 125 mcg tablet 250 mcg PO DAILY 06/15/22 11/09/22 History lidocaine 5 % topical patch 1 patch topical DAILY 06/15/22 11/09/22 History loratadine 10 mg tablet 20 mg PO DAILY PRN .allergies 06/15/22 11/09/22 History magnesium oxide 420 mg tablet 420 mg PO DAILY 06/15/22 11/09/22 History naphazoline 0.025 %-pheniramine 2 drp ophthalmic (eye) Q6 PRN Eye 06/15/22 11/09/22 History 0.3 % eye drops (Naphcon-A) Irritation nitroglycerin 0.4 mg sublingual 0.4 mg sublingual DIRECTED PRN 06/15/22 11/09/22 History tablet (Nitrostat) Chest Pain nystatin 100,000 unit/gram topical 1 applic topical BID 06/15/22 11/09/22 History powder omeprazole 20 mg capsule,delayed 20 mg PO QAM 06/15/22 11/09/22 History release polyvinyl alcohol-povidone (PF) 1 drp OPB QID 06/15/22 11/09/22 History 1.4 %-0.6 % eye drops in a dropperette (Refresh Classic (PF)) sennosides 8.6 mg tablet (senna) 8.6 mg PO BID 06/15/22 11/09/22 History metoprolol succinate 50 mg 100 mg PO BID #60 tabs 06/23/22 11/09/22 Rx tablet,extended release 24 hr insulin regular human 100 unit/mL 1 sliding scale dose subcut 07/29/22 11/09/22 History (3 mL) subcutaneous pen (Novolin R USEASDIRECTD FlexPen) potassium chloride 20 mEq 20 meq PO BID #60 tabs 08/01/22 11/09/22 Rx tablet,extended release(part/cryst) insulin glargine 100 unit/mL 60 unit subcut BID 10/12/22 11/09/22 History subcutaneous solution multivitamin with minerals 1 tab PO DAILY 10/12/22 11/09/22 History spironolactone 25 mg tablet 25 mg PO DAILY 10/12/22 11/09/22 History vit C 250 mg-vit E 90 mg-zinc 40 1 tab PO BID 10/12/22 11/09/22 History mg-copper 1 [id number] capsule (PreserVision AREDS-2) furosemide 80 mg tablet 80 mg PO BID 10/25/22 11/09/22 History betamethasone dipropionate 0.05 % 1 applic topical BID #45 grams 10/28/22 11/09/22 Rx topical cream insulin regular human 100 unit/mL 20 unit (0.2 mL) subcut TIDM #10 mL 10/29/22 11/09/22 Rx injection solution (Novolin R Regular U-100 Insulin) polyvinyl alcohol-povidone (PF) 1 drp OPB DIRECTED PRN .Dry eyes 11/09/22 11/09/22 History 1.4 %-0.6 % eye drops in a dropperette (Refresh Classic (PF)) tramadol 50 mg tablet 50 mg PO .Q4-6 PRN Pain 11/09/22 11/09/22 History Patient History Medical History Bifascicular block CAD (coronary artery disease) CKD (chronic kidney disease) stage 3, GFR 30-59 ml/min Claustrophobia COPD, moderate Entropion of left lower eyelid Fatty liver Gout History of fracture Thyroid cartilage in 2019 Interstitial lung disease Nephrolithiasis Osteoarthritis Pustular psoriasis Sarcoidosis possible- evaluated by pulmonary; felt no active sarcoidosis and would not merit steroid therapy given weight/diabetic state. 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 [employer] Pacer check 12/24/17 Status post incision and drainage Family History Mother Cancer Social History Smoking Status: Never smoker Second Hand Exposure: No; Do You Dip or Chew Tobacco: No; Hx Alcohol Use: No Hx Substance Use: No Preferred Language: Thai Communication Ability: Effective Visual Impairment: Limited Hearing Ability: Normal Rn Coronary Care Unit Required: No Beliefs That Will Affect Care: None marital status: Single Current Living Situation: Personal Care Facility Current Living Situation Comment: [facility] current occupational status: retired How many Children do You have: 1 How many Children do You have Comment: children are not involved with care much per pt Feels Safe at Home: Yes Diet: diabetic Diet Comment: FLUID RESTRICTION caffeine: No during the past year weight has: other Physical Activity Frequency: Does not Exercise Gender Identity: Male Assistive Devices: Oxygen - at Night and Walker Review of Systems Review of Systems: All systems reviewed & are unremarkable except as noted in HPI & below Physical Exam Constitutional: + morbidly obese Respiratory: normal respiratory effort, lungs clear to auscultation Cardiovascular: Rate/Rhythm: + irregularly irregular Heart Sounds: no murmur Extremities: + edema (Chronic 1+ lower extremity edema with venous stasis changes) Chest (Breasts): Chest: + pacemaker (Right infraclavicular pacemaker pocket clean dry and intact) Neurologic: No focal deficits on limited neurologic exam Results & Data Vital Signs (Past 12 Hours) Vital Signs Temp Pulse Pulse Resp BP BP Pulse Ox 11/11/22 16:47 91 H 11/11/22 15:32 36.4 C L 75 20 123/75 94 11/11/22 15:02 77 11/11/22 14:00 11/11/22 10:59 36.4 C L 74 20 132/78 94 11/11/22 07:56 36.6 C 88 20 155/93 H 97 11/11/22 07:20 91 H O2 Del Method O2 Flow Rate 11/11/22 16:47 11/11/22 15:32 Nasal Cannula 3 11/11/22 15:02 11/11/22 14:00 Nasal Cannula 3 11/11/22 10:59 Nasal Cannula 3 11/11/22 07:56 Nasal Cannula 3 11/11/22 07:20 Laboratory Results Cardiac Enzymes 11/11/22 Range/Units 06:11 B-Natriuretic Peptide 258 H (0-100) pg/ml Coagulation 11/11/22 Range/Units 06:11 B-Natriuretic Peptide 258 H (0-100) pg/ml CBC 11/11/22 Range/Units 06:11 WBC 8.53 (4.8-10.8) K/ul RBC 4.38 L (4.70-6.10) M/uL Hgb 12.4 L (14.0-18.0) g/dl Hct 38.7 L (42.0-52.0) % Plt Count 191 (130-400) K/uL Comprehensive Metabolic Panel 11/11/22 Range/Units 06:11 Sodium 141 (136-145) mmol/L Potassium 4.6 D (3.5-5.1) mmol/L Chloride 98 (98-107) mmol/L Carbon Dioxide 36 H (21-32) mmol/L BUN 22 (6-23) mg/dl Creatinine 1.42 H (0.6-1.4) mg/dl Glucose 156 H (70-99(Fasting)) mg/dl Calcium 9.3 (8.6-10.3) mg/dl Intake and Output 11/11/22 11/11/22 11/11/22 06:59 14:59 22:59 Intake Total 360 / 600 240 / 600 Output Total 1025 / 1825 750 / 1350 600 / 1350 Balance -1025 / -1345 -390 / -750 -360 / -750 Intake: Oral 360 / 600 240 / 600 Output: Urine 1025 / 1825 750 / 1350 600 / 1350 Other: Other Intake Source Sips # Unmeasured Voids 1 1 Weight 148.2 kg Weight Measurement Method Built in [facility] Diagnostic Findings Most recent echocardiogram performed 08/22/2022: Technically difficult and technically limited study, frequent PVCs noted, LVEF 50%. EKG performed 11/09/2022 at 10:23 AM and reviewed independently: Atrial fibrillation at 92 bpm with occasional ventricular paced beats.
[2022-11-11] MEDS: ATORVASTATIN 10 MG TAB PO SCH (20:10)
[2022-11-11] MEDS: ERYTHROMYCIN OP OINT 5 MG/GM 3.5 GM TUBE OPB SCH (20:15)
[2022-11-12] MEDS: LEVOTHYROXINE SODIUM 125 MCG TABLET PO SCH (05:39)
[2022-11-12 06:57] LABS: Mean Corpuscular Hemoglobin 28.2 pg (25.0-34.0); Mean Corpuscular Hgb Conc 31.6 g/dL (32.0-36.0); Mean Corpuscular Volume 89.2 fL (80.0-100.0); Platelet Count 195 K/uL (130-400); RDW Coefficient of Variation 18.4 % (11.5-14.5); RDW Standard Deviation 59.7 fL (36.4-46.3); Red Blood Count 4.26 M/uL (4.70-6.10); White Blood Count 7.56 K/ul (4.8-10.8)
[2022-11-12 07:21] LABS: BUN Creatinine Ratio 18.8 (10-20); Calcium 9.3 mg/dl (8.6-10.3); Creatinine Clr Calc Pharmacy 77.1 ml/min; Est GFR (African American) 65.3 ml/min; Est GFR (Non-African American) 56.3 ml/min; Potassium 4.2 mmol/L (3.5-5.1)
[2022-11-12] MEDS: allopurinoL 300 MG TAB PO SCH (07:49)
[2022-11-12] MEDS: CEROVITE ADV FORMULA TAB PO SCH (07:49)
[2022-11-12] MEDS: SPIRONOLACTONE 25 MG TAB PO SCH (07:49)
[2022-11-12] MEDS: SENNA 8.6 MG TAB PO SCH (07:49)
[2022-11-12] MEDS: CHOLECALCIFEROL 1,000 UNITS 25 MCG TAB PO SCH (07:49)
[2022-11-12] MEDS: METOPROLOL SUCC 50MG EXT REL TAB PO SCH (07:49)
[2022-11-12] MEDS: buPROPion XL 150 MG TABCR PO SCH (07:50)
[2022-11-12] MEDS: APIXABAN 5 MG TABLET PO SCH (07:50)
[2022-11-12] MEDS: POTASSIUM CHLORIDE CRTAB 20 MEQ TABCR PO SCH (07:50)
[2022-11-12] MEDS: MAGNESIUM OXIDE 400 MG TAB PO SCH (07:50)
[2022-11-12] MEDS: PANTOprazole 40 MG TAB PO SCH (07:50)
[2022-11-12] MEDS: DULoxetine HCL 60 MG CAP PO SCH (07:50)
[2022-11-12] MEDS: ASPIRIN 81 MG ECTAB PO SCH (07:51)
[2022-11-12] MEDS: FUROSEMIDE 80 MG TAB PO SCH (07:51)
[2022-11-12] MEDS: GABAPENTIN 300 MG CAP PO SCH ×2 (07:51→12:13)
[2022-11-12] MEDS: MUPIROCIN 2% OINT 22 GM TUBE EXT SCH (07:55)
[2022-11-12] MEDS: BETAMETHASONE DIP AUG (DIPROLENE) 0.05% CR 50 GM TUBE EXT SCH (07:55)
[2022-11-12] MEDS: LIDOCAINE 5% 1 PATCH TD SCH (07:55)
[2022-11-12] MEDS: ARTIFICIAL TEARS OP SCH ×2 (07:55→12:13)
[2022-11-12] MEDS: NYSTATIN POWDER 15GM BTL EXT SCH (07:56)
[2022-11-12] MEDS: LANTUS PER UNIT CHARGE SQ SCH (08:08)
[2022-11-12] MEDS: INSULIN ASPART PER UNIT CHARGE SC SCH ×2 (08:09→12:13)
--- NOTE | 2022-11-12 09:06 | Pharmacy Report ---
Pharmacy Glycemic Short Note 2 - Date of Service November 12, 2022 - Glycemic Short BSG Results (Last 24 hours): 11/11/22 11/11/22 11/11/22 06:11 12:01 16:51 Glucose 156 H POC Glucose 210 H 193 H 11/11/22 11/12/22 11/12/22 20:07 06:22 07:28 Glucose 290 H POC Glucose 195 H 314 H* 11/12/22 07:29 Glucose POC Glucose 335 H* OUTPATIENT ANTIDIABETIC REGIMEN: * Lantus 60 units SQ BID * Novolin-R 20 units SQ TID with meals, plus sliding scale * HbA1c: 10.8% (10/25/22) ASSESSMENT: 11/12/22: * BSGs elevated yesterday, ranging 163-210 mg/dL * Received 161 units of insulin (120 units of basal and 41 units of prandial/correctional bolus) * Will tighten carb coverage today * BSG this morning of 335 mg/dL, per RN patient reports eating icecream overnight (uncovered with insulin) * Will not overreact to this BSG and will cover carbs only with breakfast. Will reassess at lunch time. 11/10/22: * Mr Andujar is a 72yo diabetic M admitted with recurrent falls, weakness. * He is well-known to the pharmacy glycemic service from past admissions, including a recent admission. * Given patient's weakness and instability at baseline, goal will be to control hyperglycemia as much as possible, while minimizing risk of hypoglycemia. * Pharmacy will continue to follow and adjust regimen as indicated. PLAN FOR INPATIENT GLYCEMIC CONTROL: * Basal insulin * Lantus 60 units SQ BID * Bolus insulin * NovoLog per scale ACHS or Q6hrs while NPO * Goal Range: Low 110 mg/dL - High 150 mg/dL * Correction Factor: 15 mg/dL/unit * Nutritional / Prandial insulin per carb ratio of 1 unit per 3 grams CHO consumed
[2022-11-12] MEDS: traMADol HCL 50 MG TABLET PO PRN (10:38)
--- NOTE | 2022-11-12 13:28 | Hospitalist Progress Note ---
Date of Service November 12, 2022 Assessment & Plan (1) Recurrent falls: (2) Weakness: (3) Chronic diastolic CHF (congestive heart failure): (4) Persistent atrial fibrillation: (5) Portal vein thrombosis: (6) Diabetes mellitus, type 2: (7) Osteoarthritis: (8) Hypothyroidism: (9) Morbid obesity: (10) CKD (chronic kidney disease) stage 3, GFR 30-59 ml/min: (11) Chronic anticoagulation: (12) Wound of right leg: Plan per previous hospitalist notes with addendum: 72-year-old male from [facility] with multiple medical conditions as below presented to the ED with recurrent fall. Had 5 episodes of fall past week. CT A/P- 1. 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 Wedge-shaped hypodensity within the posterior segment of the right hepatic lobe also persists and may represent a subacute/chronic infarct or abnormal perfusion from the portal vein thrombosis. 2. Cardiomegaly with mild congestive change and trace bilateral pleural effusions. 3. Patchy airspace opacities within the left lower lobe favor a pneumonia. This has improved. 4. Small gallbladder remnant containing a few punctate gallstones. This remains unchanged. 5. No bowel wall thickening or obstruction. 6. Normal appendix. 7. No acute fractures. Specifically, no evidence for an acute left hip fracture. Recurrent falls-likely from debility and morbid obesity. States his legs feel weak and he falls down. Pacemaker interrogation per cardiology, orthostatic vitals, telemetry reviewed. Prior echo reviewed. PT OT evaluation. Uses walker with seat -- Pacemaker interrogation unrevealing -- Continue PT and OT evaluation at [facility] Portal vein thrombosis-subacute to chronic, seen in CT-details above. Seen by GI and vascular surgery-no new recommendations. Continue Eliquis. Chronic diastolic CHF-does not look volume overloaded. Continue home diuretics. -- Patient euvolemic Uncontrolled diabetes mellitus type 2 with hyperglycemia-continue Lantus, Humalog, sliding insulin. Persistent fibrillation status post prior ablation treatment-rate controlled, continue digoxin, Eliquis. Dig level normal History of tachybradycardia syndrome status post dual-chamber pacemaker inserted 2017, Medtronic advisa MRI A2 01- CKD stage II/III-creatinine at baseline. Interstitial lung disease/SALAS/possible amiodarone toxicity protocol/nocturnal hypoxemia-uses oxygen intermittently at night at home. Continue supplemental oxygen, wean off as tolerated. Goal saturation more than 92% Recent pustular psoriasis during recent admission-seen by dermatology on 10/28 and started on steroid cream with improvement in rash-images reviewed with Dr. Gallardo and compared to prior. Continue steroid cream. Follow-up with dermatology as outpatient Foot wound-continue local wound care. No cellulitis or infection currently -- Monitor closely Morbid obesity-BMI 49.5. Weight loss recommended. 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 He is trying to get his lifter/driver's license back so that he can get around. He is on Wellbutrin, he does not want addition of new meds. DVT prophylaxis-Eliquis Disposition-return to [facility] today when accepted Admission and Anticipated Discharge Date Admission Date: November 09, 2022 Subjective Follow-up for recurrent falls, weakness, etc. Seen resting in bedside chair, comfortable, in good spirits, very pleasant States he feels fine overall Feels better overall Denies chest pain, shortness of breath, palpitations, dizziness, nausea vomiting, abdominal pain States that he is back to his baseline level No any other symptoms States that he is ready for discharge Review of Systems Review of Systems: all noted and negative except for above Physical Exam Physical Exam: General- oriented x 2, not in distress, speaks in sentences with no effort or accessory muscle use Eyes- anicteric Neck- no JVD Lungs- clear breath sounds BL no rales/wheezing Heart- normal rate, regular rhythm; no murmurs Abdomen- normal bowel sounds, nondistended, soft, nontender Extremities- mild lower leg edema, no calf tenderness Neuro- alert, oriented x 3; no gross focal neurologic deficits Skin- warm & dry Results & Data Results & Data Vital Signs (Past 12 Hours) Vital Signs Temp Pulse Pulse Resp BP BP Pulse Ox 11/12/22 10:52 11/12/22 08:30 36.5 C 85 16 135/74 94 11/12/22 07:18 88 11/12/22 03:00 36.5 C 89 18 118/81 93 O2 Del Method O2 Flow Rate 11/12/22 10:52 Room Air 05/03/23 08:30 Nasal Cannula 3 11/12/22 07:18 11/12/22 03:00 Nasal Cannula 2 all noted and reviewed including below (6) Diabetes mellitus, type 2 Diabetes mellitus detention insulin use: with jewelry manager use Diabetes mellitus complication status: with hypoglycemia Diabetes mellitus complication detail: without coma Qualified Code(s): E11.649 - Type 2 diabetes mellitus with hypoglycemia without coma; 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
--- NOTE | 2022-11-12 14:45 | Discharge Summary ---
Discharge Summary Date of Service November 12, 2022 Notes For Next Care Provider Medication Changes From Visit None Admission HPI Per Admitting Provider 72-year-old male past medical history of A-fib, diastolic CHF, CAD, pacemaker, type 2 diabetes mellitus, COPD, hypothyroidism resident of [facility] presented with 5 episodes of falls in the past week. Patient is also noted to have elevated sugars. Patient states that he feels weak and unstable . He usually uses a walker but since the falls is using the wheelchair. He was also noted to have elevated sugars. He has been on long acting insulin and coverage for the same. Denies chest pain , shortness of breath, fever, nausea, vomiting. Information obtained from patient, review of charts, ER notes. Admission Exam Per Admitting Provider Neuro: AAOx3, PATRICIA RICHARDSENT: head normocephalic, moist mucus membranes Skin : reddish discoloration on the abdomen and lower back. right foot bandaged CV: S1/S2, no murmurs Resp: Lungs CTA in all davis. bilateral crackles. GI: Abdomen non tender . Musculoskeletal: non tender Psych: normal affect Principal Dx & Hospital Course #1 = Principal Diagnosis (1) Recurrent falls: (2) Weakness: (3) Chronic diastolic CHF (congestive heart failure): (4) Persistent atrial fibrillation: (5) Portal vein thrombosis: (6) Diabetes mellitus, type 2: (7) Osteoarthritis: (8) Hypothyroidism: (9) Morbid obesity: (10) CKD (chronic kidney disease) stage 3, GFR 30-59 ml/min: (11) Chronic anticoagulation: (12) Wound of right leg: Plan per previous hospitalist notes with addendum: 72-year-old male from [facility] with multiple medical conditions as below presented to the ED with recurrent fall. Had 5 episodes of fall past week. CT A/P- 1. 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 Wedge-shaped hypodensity within the posterior segment of the right hepatic lobe also persists and may represent a subacute/chronic infarct or abnormal perfusion from the portal vein thrombosis. 2. Cardiomegaly with mild congestive change and trace bilateral pleural effusions. 3. Patchy airspace opacities within the left lower lobe favor a pneumonia. This has improved. 4. Small gallbladder remnant containing a few punctate gallstones. This remains unchanged. 5. No bowel wall thickening or obstruction. 6. Normal appendix. 7. No acute fractures. Specifically, no evidence for an acute left hip fracture. Recurrent falls-likely from debility and morbid obesity. States his legs feel weak and he falls down. Pacemaker interrogation per cardiology, orthostatic vitals, telemetry reviewed. Prior echo reviewed. PT OT evaluation. Uses walker with seat -- Pacemaker interrogation unrevealing -- Continue PT and OT evaluation at [facility] Portal vein thrombosis-subacute to chronic, seen in CT-details above. Seen by GI and vascular surgery-no new recommendations. Continue Eliquis. Chronic diastolic CHF-does not look volume overloaded. Continue home diuretics. -- Patient euvolemic Uncontrolled diabetes mellitus type 2 with hyperglycemia-continue Lantus, Humalog, sliding insulin. Persistent fibrillation status post prior ablation treatment-rate controlled, continue digoxin, Eliquis. Dig level normal History of tachybradycardia syndrome status post dual-chamber pacemaker inserted 2016, [employer]onic advisa DR HOLT A2 01- CKD stage II/III-creatinine at baseline. Interstitial lung disease/SALAS/possible amiodarone toxicity protocol/nocturnal hypoxemia-uses oxygen intermittently at night at home. Continue supplemental oxygen, wean off as tolerated. Goal saturation more than 92% Recent pustular psoriasis during recent admission-seen by dermatology on 10/28 and started on steroid cream with improvement in rash-images reviewed with Dr. Gallardo and compared to prior. Continue steroid cream. Follow-up with dermatology as outpatient Foot wound-continue local wound care. No cellulitis or infection currently -- Monitor closely Morbid obesity-BMI 49.5. Weight loss recommended. 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 He is on Wellbutrin, he does not want addition of new meds. DVT prophylaxis-Eliquis Disposition-return to [facility] today when accepted Discharge Exam General- oriented x 2, not in distress, speaks in sentences with no effort or accessory muscle use Eyes- anicteric Neck- no JVD Lungs- clear breath sounds BL no rales/wheezing Heart- normal rate, regular rhythm; no murmurs Abdomen- normal bowel sounds, nondistended, soft, nontender Extremities- mild lower leg edema, no calf tenderness Neuro- alert, oriented x 3; no gross focal neurologic deficits Skin- warm & dry Updated Medication List Medication Instructions Recorded Confirmed Type acetaminophen 325 mg tablet 650 mg PO Q4 PRN Fever Or Pain 06/15/22 11/09/22 History (Tylenol) albuterol sulfate 90 mcg/actuation 2 puff inhalation Q4 PRN Shortness 06/15/22 11/09/22 History aerosol inhaler Of Breath Or Wheezing allopurinol 300 mg tablet 300 mg PO DAILY 06/15/22 11/09/22 History apixaban 5 mg tablet 5 mg PO Q12 06/15/22 11/09/22 History aspirin 81 mg tablet,delayed 81 mg PO DAILY 06/15/22 11/09/22 History release atorvastatin 10 mg tablet 10 mg PO HS 06/15/22 11/09/22 History bupropion HCl 150 mg 24 hr tablet, 150 mg PO QAM 06/15/22 11/09/22 History extended release cholecalciferol (vitamin D3) 25 50 mcg PO DAILY 06/15/22 11/09/22 History mcg (1,000 unit) tablet (Vitamin D3) digoxin 125 mcg (0.125 mg) tablet 125 mcg PO DAILY 06/15/22 11/09/22 History duloxetine 60 mg capsule,delayed 60 mg PO DAILY 06/15/22 11/09/22 History release epinephrine 0.3 mg/0.3 mL 0.3 mg IM DIRECTED PRN Allergic 06/15/22 11/09/22 History injection, auto-injector Reaction erythromycin 5 mg/gram (0.5 %) eye 1 applic OPB HS 06/15/22 11/09/22 History ointment gabapentin 300 mg capsule 300 mg PO QID 06/15/22 11/09/22 History levothyroxine 125 mcg tablet 250 mcg PO DAILY 06/15/22 11/09/22 History lidocaine 5 % topical patch 1 patch topical DAILY 06/15/22 11/09/22 History loratadine 10 mg tablet 20 mg PO DAILY PRN .allergies 06/15/22 11/09/22 History magnesium oxide 420 mg tablet 420 mg PO DAILY 06/15/22 11/09/22 History naphazoline 0.025 %-pheniramine 2 drp ophthalmic (eye) Q6 PRN Eye 06/15/22 11/09/22 History 0.3 % eye drops (Naphcon-A) Irritation nitroglycerin 0.4 mg sublingual 0.4 mg sublingual DIRECTED PRN 06/15/22 11/09/22 History tablet (Nitrostat) Chest Pain nystatin 100,000 unit/gram topical 1 applic topical BID 06/15/22 11/09/22 History powder omeprazole 20 mg capsule,delayed 20 mg PO QAM 06/15/22 11/09/22 History release polyvinyl alcohol-povidone (PF) 1 drp OPB QID 06/15/22 11/09/22 History 1.4 %-0.6 % eye drops in a dropperette (Refresh Classic (PF)) sennosides 8.6 mg tablet (senna) 8.6 mg PO BID 06/15/22 11/09/22 History metoprolol succinate 50 mg 100 mg PO BID #60 tabs 06/23/22 11/09/22 Rx tablet,extended release 24 hr insulin regular human 100 unit/mL 1 sliding scale dose subcut 07/29/22 11/09/22 History (3 mL) subcutaneous pen (Novolin R USEASDIRECTD FlexPen) potassium chloride 20 mEq 20 meq PO BID #60 tabs 08/01/22 11/09/22 Rx tablet,extended release(part/cryst) insulin glargine 100 unit/mL 60 unit subcut BID 10/12/22 11/09/22 History subcutaneous solution multivitamin with minerals 1 tab PO DAILY 10/12/22 11/09/22 History spironolactone 25 mg tablet 25 mg PO DAILY 10/12/22 11/09/22 History vit C 250 mg-vit E 90 mg-zinc 40 1 tab PO BID 10/12/22 11/09/22 History mg-copper 1 [id number] capsule (PreserVision AREDS-2) furosemide 80 mg tablet 80 mg PO BID 10/25/22 11/09/22 History betamethasone dipropionate 0.05 % 1 applic topical BID #45 grams 10/28/22 11/09/22 Rx topical cream insulin regular human 100 unit/mL 20 unit (0.2 mL) subcut TIDM #10 mL 10/29/22 11/09/22 Rx injection solution (Novolin R Regular U-100 Insulin) polyvinyl alcohol-povidone (PF) 1 drp OPB DIRECTED PRN .Dry eyes 11/09/22 11/09/22 History 1.4 %-0.6 % eye drops in a dropperette (Refresh Classic (PF)) tramadol 50 mg tablet 50 mg PO .Q4-6 PRN Pain 11/09/22 11/09/22 History Hospital Stay Data Consultations 11/09/22 14:46 ED Decision to Admit Stat 11/10/22 11:29 Consult Vascular Surgery Routine 11/10/22 11:30 Consult Gastroenterology Routine 11/10/22 15:47 Consult Cardiology Routine Diagnostic Imagining Performed 11/09/22 10:18 CT abd pelvis IV con only Stat COMPARISON STUDY: Abdomen and pelvis CT 10/24/2022 and 10/12/2022. FINDINGS: Interval improvement in the patchy left lower lobe airspace opacities. Mild interlobular septal thickening within the lung bases suggestive of congestive change. Suture material noted within the right lung base. There are trace bilateral pleural effusions. The heart remains enlarged. Pacemaker wires are partially visualized. Prominent hilar and subcarinal lymph nodes are noted. No pneumoperitoneum. No pneumatosis. No acute fractures identified. Specifically, no acute fractures within the left hip. There are old, healed bilateral anterior rib fractures noted. Prior midline ventral hernia repair. Mild diffuse body wall edema is noted. Subtle nodular contour to the liver suggestive of early cirrhosis. Status post cholecystectomy. There is a small gallbladder remnant identified containing a few punctate stones. This remains unchanged. The main portal vein is patent. However, there is persistent thrombus identified within the posterior/inferior segmental branch of the right portal vein. This is best seen on image 137. This likely accounts for the wedge-shaped hypodensity within the posterior segment of the right hepatic lobe consistent with diminished perfusion/infarct. This is similar to the prior study and therefore favors a subacute to chronic process. The spleen, adrenal glands, and pancreas are unremarkable. No hydronephrosis. Normal caliber abdominal aorta with mild calcified plaque. No retroperitoneal lymphadenopathy. The bladder is unremarkable. The prostate gland is normal in size. No pelvic lymphadenopathy or pelvic free fluid. Moderate fecal retention. No bowel wall thickening or obstruction. Normal appendix. IMPRESSION: 1. 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 Wedge-shaped hypodensity within the posterior segment of the right hepatic lobe also persists and may represent a subacute/chronic infarct or abnormal perfusion from the portal vein thrombosis. 2. Cardiomegaly with mild congestive change and trace bilateral pleural effusions. 3. Patchy airspace opacities within the left lower lobe favor a pneumonia. This has improved. 4. Small gallbladder remnant containing a few punctate gallstones. This remains unchanged. 5. No bowel wall thickening or obstruction. 6. Normal appendix. 7. No acute fractures. Specifically, no evidence for an acute left hip fracture. 8. Additional findings as described above. ACT 112: Negative or not required by law. CT cervical spine wo con Stat COMPARISON: Cervical spine CT 11/01/2021. FINDINGS: No fractures. No subluxation. Prevertebral soft tissues and the C1-C2 interval are intact. No pneumothorax. A left-sided pacemaker is partially visualized. IMPRESSION: No fractures within the cervical spine. CT head/brain wo con Stat Comparison: Head CT 08/20/2022. Findings: The paranasal sinuses and mastoid air cells are clear. The calvarium and skull base are intact. There is no mass, hematoma, midline shift, acute infarct. White matter hypodensity is nonspecific but suggestive of microvascular ischemic change. The ventricles and sulci demonstrate mild age-related involutional changes. Impression: No significant change compared to the prior study. No acute intracranial abnormality. ACT 112: Negative or not required by law. Pending Results Patient Have Any Pending Studies at Discharge: No Discharge Instructions Given to Patient (Per Discharging Provider) Please refer to hospital discharge summary. Total Time Total Time Spent Total Time Spent (In Minutes): >30 minutes
== END 2022-11-12 15:06 | disposition home or self-care (01) | DRG 91 ==
LOC: ED 09:55 → 2N 16:40 → SUATTDRO 16:40 → 2N 17:59

== ENCOUNTER 2023-01-24 09:43 | Inpatient (IN) ==
[2023-01-24] MEDS ORDERED: SODIUM CHLORIDE 0.9% 1000ML 500 ML IV ONE (10:00)
--- NOTE | 2023-01-24 10:05 | Emergency Department Note ---
Impression & Plan Acute UTI (urinary tract infection), Infection of eye due to methicillin resistant Staphylococcus aureus (MRSA), Infection of left hand, Acute confusion ED Provider Note Name: CECILE KENDALL Age: 72 Sex: M Arrives Via: Ambulance Informant: Patient (poor historian), EMS, nursing records ED Provider: Christopher Mcmillan MD Chief Complaint: Somnolence Impression: As per impressions above Medical Decision Makin-year-old gentleman with extensive past medical history arrives for evaluation of worsening confusion and symptoms similar to his previous UTIs. He arrives in really no distress is able to answer some questions. Per EMS he had a fall landing on his left side. He is complaining of left hip and leg pain. On review patient states that he has had pain for many years and it does appear that he is had recent imaging of that as well. He appears mildly confused but not in any significant distress. Otherwise on exam he is noted to have exudative drainage from his left eye as well as both his fourth and fifth fingers are wrapped on the left side for an infection. He is recently been on Macrobid and vancomycin eyedrops. His symptoms are very much consistent with his previous UTIs. No reported fevers. Work-up including septic work-up is unremarkable. His white blood cell count and lactate are normal. His Pro-Sreedhar is not significantly elevated. I do not feel he is severe sepsis or septic shock. He was given empiric IV Unasyn and IV daptomycin given his history of MRSA infections. He was not given 30/kg IV fluids as he has known congestive heart failure and would like to avoid putting him in to further congestion, comments that he was given 500 mL IV fluids. I will note that there was significant difficulty getting laboratory work-up and thus starting antibiotics as well. Fall he did have imaging completed of the head which was negative and a CT IV contrast of the face which reveals no evidence of orbital abscess or cellulitis. Prior Medical Record and Triage/Nursing Notes reviewed by Me External chart reviewed by me including nursing records and his previous hospital stays discharge summaries. Differentials:Infection, dehydration, metabolic abnormality, hypo/hyperglycemia, electrolyte disturbance, anemia, hypoxia, cardiac sources, intracerebral event, toxicologic, neurologic, as well as other pathologies. Vital Signs: reviewed and remarkable for no significant abnormalities Interventions: Normal saline bolus 500 mL IV, Unasyn IV, Dapto IV Labs:Reviewed and remarkable for no significant abnormalities Imaging:CT of the head without contrast as per my informal interpretation reveals no intracranial hemorrhage or mass effect. CT of the face with IV contrast as per my informal interpretation reveals no significant proptosis, abscess or significant cellulitis. X-rays of the left hip reveal per my interpretation no fracture no dislocation. EKG:As per my interpretation. Indication illness. Ventricular paced with underlying A-fib no overt ischemia. 61 bpm with a QTc of 483. There is an intraventricular block noted. When compared to EKG of January 16, 2023 there is no significant change though. Cardiac/Tele Monitoring: Cardiac Monitoring: An Order was placed for continuous cardiac monitoring. The monitor shows a rate of 60 with a ventricular paced rhythm. Consults: Hospitalist Plan: Disposition:Hospitalization. Condition: Fair History of Present Illness:72-year-old gentleman arrives for evaluation of worsening mental status. Patient lives in local nursing facility/assisted care and states that he is having left hip pain. Apparently he had a fall this morning due to weakness. Landed on left side. Has been complaining of left hip and leg pain. That said patient also notes he has had pain there for years. He had also had an MRI of the left knee specifically because he has pain so long that was done a few days ago. Per staff at nursing facility patient has been having worsening confusion over the last few days. He is now to the point where he is quite confused and off from his baseline. No reported fevers. Has been dealing with a MRSA infection of his left eye, infections of both the fourth and fifth fingers on the left hand and reported UTI. Per chart he has been on Macrobid p.o. and possibly vancomycin eyedrops. No reported fevers, vomiting, appetite change, difficulty breathing, chest pain, abdominal pain, back pain, any other concerning signs or symptoms. Story is a bit confusing and patient is not a great historian. Past History:See Below Home Medications:See Below Allergies:NKDA Vitals:Blood Pressure: 117/69, Pulse 62, RR 16, T 36.7C, O2 98% on RA Physical Exam: GENERAL: Patient is chronically unwell appearing and in minimal distress. EYES: Purulent drainage from left eye mild surrounding erythema. ENT: Mucous membranes moist, no nasal congestion. RESPIRATORY: No dyspnea. Clear to auscultation and equal bilaterally. No wheeze, no rhonchi. CARDIOVASCULAR: Irregular.No murmurs, rubs, gallops appreciated. GASTROINTESTINAL: Abdomen soft, non-tender, no peritonitis.Bowel sounds positive.No masses appreciated. BACK: No midline tenderness, no CVA tenderness EXTREMITIES: Left hand has wrappings over fourth and fifth digits and some purulent exudate coming through dressings. NEUROLOGIC: Patient is awake somewhat confused though aware of location. Speech is a bit nonsensical at times. SKIN: No rash, no jaundice, no diaphoresis. PSYCH: Appropriate GCS: 15 ED Course: Times/Reassessments: Patient has no distress he does appear a bit better after some IV fluids however given he lives in a personal care facility I think hospitalization here is indicated especially given his failure of outpatient antibiotics. Christopher Mcmillan MD Past Med/Surg History Medical History (Updated 01/25/23 @ 13:28 by Christopher Mcmillan MD) Altered mental status Bifascicular block CAD (coronary artery disease) CKD (chronic kidney disease) stage 3, GFR 30-59 ml/min Claustrophobia COPD, moderate Entropion of left lower eyelid Fatty liver Gout History of fracture Thyroid cartilage in 2019 Interstitial lung disease Nephrolithiasis Osteoarthritis Pustular psoriasis Sarcoidosis possible- evaluated by pulmonary; felt no active sarcoidosis and would not merit steroid therapy given weight/diabetic state. 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 [employer] Pacer check 12/24/17 Status post incision and drainage Family History Mother Cancer Social History Smoking Status: Never smoker Second Hand Exposure: No; Do You Dip or Chew Tobacco: No; Hx Alcohol Use: No Hx Substance Use: No Preferred Language: Swedish Communication Ability: Effective Visual Impairment: No Limitations Hearing Ability: Normal Diet Therapist Required: No Beliefs That Will Affect Care: None marital status: Single Current Living Situation: Personal Care Facility Current Living Situation Comment: [facility] current occupational status: retired How many Children do You have: 1 How many Children do You have Comment: children are not involved with care much per pt Other Information That Helps Us Care for You: No Feels Safe at Home: Yes Safety Concerns: Feels Safe At This Time Diet: diabetic Diet Comment: FLUID RESTRICTION-1800ccs per pt report caffeine: No during the past year weight has: other Physical Activity Frequency: Does not Exercise Gender Identity: Male Assistive Devices: Oxygen - at Night and Scooter/Electric Scooter Allergies Allergies Allergy/AdvReac Type Severity Reaction Status Date / Time No Known Allergies Allergy Verified 01/21/23 13:06 Home Meds Home Medications Medication Instructions Recorded Confirmed acetaminophen 325 mg tablet 650 mg PO Q4 PRN Fever Or Pain 06/15/22 01/24/23 (Tylenol) albuterol sulfate 90 mcg/actuation 2 puff inhalation Q4 PRN Shortness 06/15/22 01/24/23 aerosol inhaler Of Breath Or Wheezing allopurinol 300 mg tablet 300 mg PO DAILY 06/15/22 01/24/23 apixaban 5 mg tablet 5 mg PO Q12 06/15/22 01/24/23 aspirin 81 mg tablet,delayed 81 mg PO DAILY 06/15/22 01/24/23 release atorvastatin 10 mg tablet 10 mg PO HS 06/15/22 01/24/23 cholecalciferol (vitamin D3) 25 50 mcg PO DAILY 06/15/22 01/24/23 mcg (1,000 unit) tablet (Vitamin D3) digoxin 125 mcg (0.125 mg) tablet 125 mcg PO DAILY 06/15/22 01/24/23 duloxetine 60 mg capsule,delayed 60 mg PO DAILY 06/15/22 01/24/23 release epinephrine 0.3 mg/0.3 mL 0.3 mg IM DIRECTED PRN Allergic 06/15/22 01/24/23 injection, auto-injector Reaction erythromycin 5 mg/gram (0.5 %) eye 1 applic OPL BID 06/15/22 01/24/23 ointment gabapentin 300 mg capsule 300 mg PO QID 06/15/22 01/24/23 levothyroxine 125 mcg tablet 250 mcg PO DAILYBB 06/15/22 01/24/23 lidocaine 5 % topical patch 1 patch topical DAILY 06/15/22 01/24/23 loratadine 10 mg tablet 20 mg PO DAILY PRN .allergies 06/15/22 01/24/23 magnesium oxide 420 mg tablet 420 mg PO DAILY 06/15/22 01/24/23 naphazoline 0.025 %-pheniramine 2 drp ophthalmic (eye) Q6 PRN Eye 06/15/22 01/24/23 0.3 % eye drops (Naphcon-A) Irritation nitroglycerin 0.4 mg sublingual 0.4 mg sublingual DIRECTED PRN 06/15/22 01/24/23 tablet (Nitrostat) Chest Pain nystatin 100,000 unit/gram topical 1 applic topical BID wound care 06/15/22 01/24/23 powder omeprazole 20 mg capsule,delayed 20 mg PO QAM 06/15/22 01/24/23 release sennosides 8.6 mg tablet (senna) 8.6 mg PO BID 06/15/22 01/24/23 insulin regular human 100 unit/mL 0 - 30 sliding scale dose subcut 07/29/22 01/24/23 (3 mL) subcutaneous pen (Novolin R ACHS ON TOP OF STANDING MEAL DOSAGE FlexPen) insulin glargine 100 unit/mL 70 unit subcut BID 10/12/22 01/24/23 subcutaneous solution multivitamin with minerals 1 tab PO DAILY 10/12/22 01/24/23 spironolactone 25 mg tablet 25 mg PO DAILY 10/12/22 01/24/23 vit C 250 mg-vit E 90 mg-zinc 40 1 tab PO BID 10/12/22 01/24/23 mg-copper 1 [id number] capsule (PreserVision AREDS-2) furosemide 80 mg tablet 80 mg PO BID 10/25/22 01/24/23 polyvinyl alcohol-povidone (PF) 1 drp OPB QID 11/09/22 01/24/23 1.4 %-0.6 % eye drops in a dropperette (Refresh Classic (PF)) bupropion HCl 300 mg 24 hr tablet, 300 mg PO QAM 12/30/22 01/24/23 extended release cadexomer iodine 0.9 % topical gel 40 g topical DAILY WOUND CARE TO 01/24/23 01/24/23 (Iodosorb) RIGHT/LEFT TOES insulin regular human 100 unit/mL 22 unit subcut TIDM 01/24/23 01/24/23 injection solution (Novolin R Regular U-100 Insulin) menthol 0.44 %-zinc oxide 20.6 % 1 applic topical BID SKIN 01/24/23 01/24/23 topical ointment (Calmoseptine) PROTECTION metolazone 2.5 mg tablet 2.5 mg PO .[id number] 01/24/23 01/24/23 miconazole nitrate 2 % topical 1 spray topical DAILY Apply in 01/24/23 01/24/23 spray powder belly folds for yeast infection potassium chloride 20 mEq 20 meq PO .[id number] 01/24/23 01/24/23 tablet,extended release(part/cryst) potassium chloride 20 mEq See Rx Instructions .Route .COMPLEX 01/24/23 01/24/23 tablet,extended release(part/cryst) tramadol 50 mg tablet 100 mg PO .Q4-6H PRN Pain 01/24/23 01/24/23 vancomycin See Rx Instructions .Route .COMPLEX 01/24/23 01/24/23 Previous Rx's Medication Instructions Recorded metoprolol succinate 50 mg 100 mg PO BID #60 tabs 06/23/22 tablet,extended release 24 hr nitrofurantoin 100 mg PO BID #20 caps 01/16/23 monohydrate/macrocrystals 100 mg capsule (Macrobid) Results & Data (ED) Vital Signs Vital Signs - 24 hr 01/24/23 13:18 Pulse Rate 74 Pulse Rate from SpO2 Sensor 69 Respiratory Rate 20 Blood Pressure 150/90 H Blood Pressure Mean 110 Pulse Oximetry 93 Oxygen Delivery Method Nasal Cannula Laboratory Data 01/25/23 08:05 01/25/23 08:05 Lab Results 01/24/23 01/24/23 01/24/23 Range/Units 10:21 10:21 10:21 WBC 9.66 (4.8-10.8) K/ul RBC 5.09 (4.70-6.10) M/uL Hgb 14.2 (14.0-18.0) g/dl Hct 42.8 (42.0-52.0) % MCV 84.1 (80.0-100.0) fL MCH 27.9 (25.0-34.0) pg MCHC 33.2 (32.0-36.0) g/dL RDW Std Deviation 44.8 (36.4-46.3) fL RDW Coeff of Baldo 14.8 H (11.5-14.5) % Plt Count 178 (130-400) K/uL MPV 11.6 (9.4-12.4) fL Immature Gran % (Auto) 0.3 % Neut % (Auto) 78.7 % Lymph % (Auto) 10.8 % Bledsoe % (Auto) 8.1 % Eos % (Auto) 1.6 % Baso % (Auto) 0.5 % Neut # (Auto) 7.61 H (1.40-6.50) K/uL Lymph # (Auto) 1.04 L (1.2-3.4) K/uL Bledsoe # (Auto) 0.78 H (0.11-0.59) K/uL Eos # (Auto) 0.15 (0-0.50) K/uL Baso # (Auto) 0.05 (0-0.2) K/uL Immature Gran # (Auto) 0.03 (0.01-0.20) K/uL Sodium (136-145) mmol/L Potassium Chloride (98-107) mmol/L Carbon Dioxide (21-32) mmol/L Anion Gap (3-11) BUN (6-23) mg/dl Creatinine (0.6-1.4) mg/dl Est Cr Clr Drug Dosing ml/min Est GFR ( Amer) ml/min Est GFR (Non-Af Amer) ml/min BUN/Creatinine Ratio (10-20) Glucose (70-99(Fasting)) mg/dl Lactate 1.3 (0.4-2.0) mmol/L Calcium (8.6-10.3) mg/dl Magnesium (1.7-2.4) mg/dl Total Bilirubin (0.2-1.0) mg/dl Direct Bilirubin AST ALT (7-52) U/L Alkaline Phosphatase (34-104) U/L Troponin I High Sens (0-20) pg/ml Total Protein (6.0-8.3) gm/dl Albumin (3.4-5.0) gm/dl Procalcitonin Urine Color Urine Appearance (Clear) Urine pH (4.5-7.5) Ur Specific [place] (1.000-1.030) Urine Protein (Negative) Urine Glucose (UA) (Negative) Urine Ketones (Negative) Urine Blood (Negative) Urine Nitrite (Negative) Urine Bilirubin (Negative) Urine Urobilinogen (Negative) Ur Leukocyte Esterase (Negative) Urine WBC (Auto) (0-5) /hpf Urine RBC (Auto) (0-4) /hpf U Hyaline Cast (Auto) (0-5) /lpf U Epithel Cells (Auto) (0-5) /lpf Urine Bacteria (Auto) (Negative) Digoxin 1.2 (0.8-2.0) ng/ml SARS-CoV-2, RNA, NAAT (NEGATIVE) 01/24/23 01/24/23 01/24/23 Range/Units 10:21 11:22 11:24 WBC (4.8-10.8) K/ul RBC (4.70-6.10) M/uL Hgb (14.0-18.0) g/dl Hct (42.0-52.0) % MCV (80.0-100.0) fL MCH (25.0-34.0) pg MCHC (32.0-36.0) g/dL RDW Std Deviation (36.4-46.3) fL RDW Coeff of Baldo (11.5-14.5) % Plt Count (130-400) K/uL MPV (9.4-12.4) fL Immature Gran % (Auto) % Neut % (Auto) % Lymph % (Auto) % Bledsoe % (Auto) % Eos % (Auto) % Baso % (Auto) % Neut # (Auto) (1.40-6.50) K/uL Lymph # (Auto) (1.2-3.4) K/uL Bledsoe # (Auto) (0.11-0.59) K/uL Eos # (Auto) (0-0.50) K/uL Baso # (Auto) (0-0.2) K/uL Immature Gran # (Auto) (0.01-0.20) K/uL Sodium (136-145) mmol/L Potassium Chloride (98-107) mmol/L Carbon Dioxide (21-32) mmol/L Anion Gap (3-11) BUN (6-23) mg/dl Creatinine (0.6-1.4) mg/dl Est Cr Clr Drug Dosing ml/min Est GFR ( Amer) ml/min Est GFR (Non-Af Amer) ml/min BUN/Creatinine Ratio (10-20) Glucose (70-99(Fasting)) mg/dl Lactate (0.4-2.0) mmol/L Calcium (8.6-10.3) mg/dl Magnesium (1.7-2.4) mg/dl Total Bilirubin (0.2-1.0) mg/dl Direct Bilirubin AST ALT (7-52) U/L Alkaline Phosphatase (34-104) U/L Troponin I High Sens (0-20) pg/ml Total Protein (6.0-8.3) gm/dl Albumin (3.4-5.0) gm/dl Procalcitonin Cancelled 0.07 Urine Color Yellow Urine Appearance Cloudy A (Clear) Urine pH 7.0 (4.5-7.5) Ur Specific [place] 1.010 (1.000-1.030) Urine Protein Negative (Negative) Urine Glucose (UA) Negative (Negative) Urine Ketones Negative (Negative) Urine Blood Trace H (Negative) Urine Nitrite Positive A (Negative) Urine Bilirubin Negative (Negative) Urine Urobilinogen Negative (Negative) Ur Leukocyte Esterase 3+ H (Negative) Urine WBC (Auto) >30 H (0-5) /hpf Urine RBC (Auto) 0-4 (0-4) /hpf U Hyaline Cast (Auto) 1-5 (0-5) /lpf U Epithel Cells (Auto) 0-5 (0-5) /lpf Urine Bacteria (Auto) 1+ H (Negative) Digoxin (0.8-2.0) ng/ml SARS-CoV-2, RNA, NAAT (NEGATIVE) 01/24/23 01/24/23 Range/Units 12:21 13:17 WBC (4.8-10.8) K/ul RBC (4.70-6.10) M/uL Hgb (14.0-18.0) g/dl Hct (42.0-52.0) % MCV (80.0-100.0) fL MCH (25.0-34.0) pg MCHC (32.0-36.0) g/dL RDW Std Deviation (36.4-46.3) fL RDW Coeff of Baldo (11.5-14.5) % Plt Count (130-400) K/uL MPV (9.4-12.4) fL Immature Gran % (Auto) % Neut % (Auto) % Lymph % (Auto) % Bledsoe % (Auto) % Eos % (Auto) % Baso % (Auto) % Neut # (Auto) (1.40-6.50) K/uL Lymph # (Auto) (1.2-3.4) K/uL Bledsoe # (Auto) (0.11-0.59) K/uL Eos # (Auto) (0-0.50) K/uL Baso # (Auto) (0-0.2) K/uL Immature Gran # (Auto) (0.01-0.20) K/uL Sodium 135 L (136-145) mmol/L Potassium TNP Chloride 93 L (98-107) mmol/L Carbon Dioxide 36 H (21-32) mmol/L Anion Gap 6 (3-11) BUN 52 H (6-23) mg/dl Creatinine 1.34 (0.6-1.4) mg/dl Est Cr Clr Drug Dosing 72.3 ml/min Est GFR ( Amer) 61.8 ml/min Est GFR (Non-Af Amer) 53.3 ml/min BUN/Creatinine Ratio 38.8 H (10-20) Glucose 190 H (70-99(Fasting)) mg/dl Lactate (0.4-2.0) mmol/L Calcium 9.6 (8.6-10.3) mg/dl Magnesium 2.0 (1.7-2.4) mg/dl Total Bilirubin 1.2 H (0.2-1.0) mg/dl Direct Bilirubin TNP AST TNP ALT 17 (7-52) U/L Alkaline Phosphatase 128 H (34-104) U/L Troponin I High Sens 16.5 (0-20) pg/ml Total Protein 7.2 (6.0-8.3) gm/dl Albumin 3.4 (3.4-5.0) gm/dl Procalcitonin Urine Color Urine Appearance (Clear) Urine pH (4.5-7.5) Ur Specific [place] (1.000-1.030) Urine Protein (Negative) Urine Glucose (UA) (Negative) Urine Ketones (Negative) Urine Blood (Negative) Urine Nitrite (Negative) Urine Bilirubin (Negative) Urine Urobilinogen (Negative) Ur Leukocyte Esterase (Negative) Urine WBC (Auto) (0-5) /hpf Urine RBC (Auto) (0-4) /hpf U Hyaline Cast (Auto) (0-5) /lpf U Epithel Cells (Auto) (0-5) /lpf Urine Bacteria (Auto) (Negative) Digoxin (0.8-2.0) ng/ml SARS-CoV-2, RNA, NAAT NEGATIVE (NEGATIVE) Administered Medications Allopurinol (Allopurinol 300 Mg Tab) 300 mg PO DAILY OFE Stop: 02/24/23 08:59 Last Admin: 01/25/23 08:57 Dose: 300 mg Documented By: CHANELL Apixaban (Apixaban 5 Mg Tablet) 5 mg PO Q12 OFE Stop: 02/23/23 20:59 Last Admin: 01/25/23 08:56 Dose: 5 mg Documented By: Admin: 01/24/23 20:36 Dose: 5 mg Documented By: WILL Artificial Tears (Artificial Tears) 1 drops OP QID OFE Stop: 02/23/23 16:59 Last Admin: 01/25/23 08:57 Dose: 1 drops Documented By: Admin: 01/24/23 20:32 Dose: 1 drops Documented By: Admin: 01/24/23 18:28 Dose: 1 drops Documented By: CHANELL Aspirin (Aspirin 81 Mg Ectab) 81 mg PO DAILY OFE Stop: 02/24/23 08:59 Last Admin: 01/25/23 08:57 Dose: 81 mg Documented By: CHANELL Atorvastatin Calcium (Atorvastatin 10 Mg Tab) 10 mg PO HS OFE Stop: 02/23/23 20:59 Last Admin: 01/24/23 20:36 Dose: 10 mg Documented By: WILL Bupropion HCl (Bupropion Xl 300 Mg Tabcr) 300 mg PO QAM OFE Stop: 02/24/23 08:59 Last Admin: 01/25/23 08:56 Dose: 300 mg Documented By: CHANELL Calamine/Phenol (Menthol-Zinc Oxide 360 Appln/120 Gm Tube) 1 appln EXT BID OFE Stop: 02/23/23 20:59 Last Admin: 01/25/23 08:57 Dose: 1 appln Documented By: Admin: 01/24/23 20:34 Dose: 1 appln Documented By: WILL Duloxetine HCl (Duloxetine Hcl 60 Mg Cap) 60 mg PO DAILY OFE Stop: 02/24/23 08:59 Last Admin: 01/25/23 08:56 Dose: 60 mg Documented By: CHANELL Erythromycin (Erythromycin Op Oint 5 Mg/Gm 3.5 Gm Tube) 1 appln OPL BID OFE Stop: 02/03/23 20:59 Last Admin: 01/25/23 08:55 Dose: 1 appln Documented By: Admin: 01/24/23 20:36 Dose: 1 appln Documented By: WILL Furosemide (Furosemide 80 Mg Tab) 80 mg PO BID OFE Stop: 02/23/23 20:59 Last Admin: 01/25/23 08:54 Dose: 80 mg Documented By: Admin: 01/24/23 20:35 Dose: 80 mg Documented By: WILL Gabapentin (Gabapentin 300 Mg Cap) 300 mg PO QID OFE Stop: 02/23/23 16:59 Last Admin: 01/25/23 08:56 Dose: 300 mg Documented By: Admin: 01/24/23 20:33 Dose: 300 mg Documented By: Admin: 01/24/23 17:44 Dose: 300 mg Documented By: CHANELL Cefepime HCl 2,000 mg/ Syringe 20 mls @ 5 mls/min IV Q12H OFE; Protocol Stop: 02/03/23 19:59 Last Admin: 01/25/23 08:59 Dose: 5 mls/min Documented By: Admin: 01/24/23 20:20 Dose: 5 mls/min Documented By: DM Insulin Aspart (Insulin Aspart Per Unit Charge) 0 units SC ACHS OFE; Protocol Stop: 02/24/23 07:29 Last Admin: 01/25/23 08:58 Dose: Not Given Documented By: CHANELL Insulin Glargine (Lantus Per Unit Charge) 0 units SC BID OFE; Protocol Stop: 02/23/23 20:59 Last Admin: 01/25/23 08:59 Dose: 50 units Documented By: CHANELL Co-signed By: ZS Admin: 01/24/23 20:42 Dose: 50 units Documented By: WILL Co-signed By: DM Levothyroxine Sodium (Levothyroxine Sodium 125 Mcg Tablet) 250 mcg PO DAILYBB [facility] Stop: 02/24/23 06:29 Last Admin: 01/25/23 05:38 Dose: 250 mcg Documented By: WILL Lidocaine (Lidocaine 5% 1 Patch) 1 patch TD DAILY OFE Stop: 02/24/23 08:59 Last Admin: 01/25/23 08:58 Dose: Not Given Documented By: CHANELL Magnesium Oxide (Magnesium Oxide 400 Mg Tab) 400 mg PO DAILY OFE Stop: 02/24/23 08:59 Last Admin: 01/25/23 08:57 Dose: 400 mg Documented By: CHANELL Metoprolol Succinate (Metoprolol Succ 50mg Ext Rel Tab) 100 mg PO BID OFE Stop: 02/23/23 20:59 Last Admin: 01/25/23 08:55 Dose: 100 mg Documented By: Admin: 01/24/23 20:35 Dose: 100 mg Documented By: WILL Miconazole Nitrate (Miconazole Nitrate Powder 85 Gm) 1 appln TOP DAILY OFE Stop: 02/24/23 08:59 Last Admin: 01/25/23 12:04 Dose: 1 appln Documented By: CHANELL Miscellaneous (Iodosorb---Order Awaiting Action) 1 each N/A QS [facility] Stop: 02/24/23 00:00 Last Admin: 01/25/23 08:59 Dose: Not Given Documented By: Admin: 01/24/23 23:01 Dose: Not Given Documented By: WILL Miscellaneous (Remove Lidoderm Patch) 1 each N/A DAILY@2100 [facility] Stop: 02/23/23 20:59 Last Admin: 01/24/23 21:08 Dose: Not Given Documented By: WILL Multivitamins/Minerals (Cerovite Adv Formula Tab) 1 tab PO BID OFE Stop: 02/23/23 20:59 Last Admin: 01/25/23 08:55 Dose: 1 tab Documented By: Admin: 01/24/23 20:35 Dose: 1 tab Documented By: WILL Nystatin (Nystatin Powder 15gm Btl) 1 appln EXT BID OFE Stop: 02/23/23 20:59 Last Admin: 01/25/23 12:19 Dose: 1 appln Documented By: Admin: 01/24/23 20:33 Dose: 1 appln Documented By: WILL Oxycodone HCl (Oxycodone Hcl Ir 5 Mg Tab (Immediate Release)) 5 mg PO Q6H PRN PRN Reason: Pain Stop: 02/07/23 20:29 Last Admin: 01/25/23 02:45 Dose: 5 mg Documented By: WILL Pantoprazole Sodium (Pantoprazole 40 Mg Tab) 40 mg PO QAM OFE Stop: 02/24/23 08:59 Last Admin: 01/25/23 08:57 Dose: 40 mg Documented By: CHANELL Potassium Chloride (Potassium Chloride Crtab 20 Meq Tabcr) 20 meq PO [place] [id number]@0900,2100 [facility] Stop: 02/23/23 20:59 Last Admin: 01/25/23 08:57 Dose: 20 meq Documented By: Admin: 01/24/23 20:34 Dose: 20 meq Documented By: WILL Sennosides (Senna 8.6 Mg Tab) 8.6 mg PO BID OFE Stop: 02/23/23 20:59 Last Admin: 01/25/23 08:56 Dose: 8.6 mg Documented By: Admin: 01/24/23 20:33 Dose: 8.6 mg Documented By: WILL Spironolactone (Spironolactone 25 Mg Tab) 25 mg PO DAILY [facility] Stop: 02/24/23 08:59 Last Admin: 01/25/23 08:56 Dose: 25 mg Documented By: CHANELL Vancomycin HCl (Vancomycin 25mg/Ml Fortified Oph Drops) 1 drops OPL QID OFE Stop: 02/03/23 17:59 Last Admin: 01/25/23 08:57 Dose: 1 drops Documented By: Admin: 01/24/23 20:32 Dose: 1 drops Documented By: Admin: 01/24/23 18:26 Dose: 1 drops Documented By: CHANELL Vitamin D (Cholecalciferol 1,000 Units 25 Mcg Tab) 2,000 units PO DAILY OFE Stop: 02/24/23 08:59 Last Admin: 01/25/23 08:56 Dose: 2,000 units Documented By: CHANELL Discontinued Medications Sodium Chloride (Nss 1000ml) 500 mls @ 999 mls/hr IV .Q31M ONE Stop: 01/24/23 10:30 Last Infusion: 01/24/23 11:30 Dose: 0 mls/hr Documented By: Admin: 01/24/23 10:23 Dose: 999 mls/hr Documented By: SELENA Ampicillin Sodium/Sulbactam Sodium 3,000 mg/ Sodium Chloride 108 mls @ 200 mls/hr IV NOW STA; Protocol Stop: 01/24/23 13:10 Last Infusion: 01/24/23 14:43 Dose: 0 mls/hr Documented By: MIGUEL ÁNGEL Admin: 01/24/23 14:00 Dose: 200 mls/hr Documented By: MIUGEL ÁNGEL Daptomycin 400 mg/ Syringe 8 mls @ 4 mls/min IV NOW STA; Protocol Stop: 01/24/23 12:39 Last Admin: 01/24/23 14:41 Dose: 4 mls/min Documented By: MIGUEL ÁNGEL Ampicillin Sodium/Sulbactam Sodium 3,000 mg/ Sodium Chloride 108 mls @ 200 mls/hr IV Q6H [facility] [place]; Protocol Stop: 02/03/23 19:59 Last Infusion: 01/24/23 19:45 Dose: 0 mls/hr Documented By: Admin: 01/24/23 19:37 Dose: 200 mls/hr Documented By: WILL Insulin Aspart (Insulin Aspart Per Unit Charge) 0 units SC ACHS [facility] [place] Stop: 02/23/23 17:44 Last Admin: 01/24/23 20:42 Dose: 11 units Documented By: WILL Co-signed By: GRETA Admin: 01/24/23 18:25 Dose: 7 units Documented By: CHANELL Co-signed By: JAMEE Insulin Aspart (Insulin Aspart Per Unit Charge) 0 units SC ONE ONE Stop: 01/25/23 01:01 Last Admin: 01/25/23 00:56 Dose: 5 units Documented By: WILL Co-signed By: GRETA Ioversol (Optiray 320 100ml) 91 ml IV ONCE ONE Stop: 01/24/23 12:10 Last Admin: 01/24/23 12:09 Dose: 91 ml Documented By: JD Oxycodone HCl (Oxycodone Hcl Ir 5 Mg Tab (Immediate Release)) 5 mg PO NOW STA Stop: 01/24/23 20:31 Last Admin: 01/24/23 20:46 Dose: 5 mg Documented By: WILL Potassium Chloride (Potassium Chloride Crtab 20 Meq Tabcr) 60 meq PO NOW STA Stop: 01/24/23 20:07 Last Admin: 01/24/23 20:47 Dose: 60 meq Documented By: WILL Discharge Plan Visit Data Chief Complaint: Leg Injury/Pain Stated Complaint: LEG PAIN, FELL EARLIER, LETHARIC PER STAFF ED Provider: Christopher Mcmillan Discharge Problem: Acute UTI (urinary tract infection), Infection of eye due to methicillin resistant Staphylococcus aureus (MRSA), Infection of left hand, Acute confusion Patient Disposition: Admitted As Inpatient Discharge Instructions Interventions: ED Discharge Assessment Last Done: 01/24/23 15:14
[2023-01-24 10:53] LABS: Basophils # (auto) 0.05 K/uL (0-0.2); Basophils % (auto) 0.5 %; Eosinophils # (auto) 0.15 K/uL (0-0.50); Eosinophils % (auto) 1.6 %; Hematocrit (blood only) 42.8 % (42.0-52.0); Hemoglobin 14.2 g/dl (14.0-18.0); Immature Granulocytes # (auto) 0.03 K/uL (0.01-0.20); Immature Granulocytes % (auto) 0.3 %; Lymphocytes # (auto) 1.04 K/uL (1.2-3.4); Lymphocytes % (auto) 10.8 %; Mean Corpuscular Hemoglobin 27.9 pg (25.0-34.0); Mean Corpuscular Hgb Conc 33.2 g/dL (32.0-36.0); Mean Corpuscular Volume 84.1 fL (80.0-100.0); Mean Platelet Volume 11.6 fL (9.4-12.4); Monocytes # (auto) 0.78 K/uL (0.11-0.59); Monocytes % (auto) 8.1 %; Neutrophils # (auto) 7.61 K/uL (1.40-6.50); Neutrophils % (auto) 78.7 %; Platelet Count 178 K/uL (130-400); RDW Coefficient of Variation 14.8 % (11.5-14.5); RDW Standard Deviation 44.8 fL (36.4-46.3); Red Blood Count 5.09 M/uL (4.70-6.10); White Blood Count 9.66 K/ul (4.8-10.8)
--- NOTE | 2023-01-24 11:28 | XRay Report ---
XR hip LT 2V w pelvis CLINICAL HISTORY: left hip pain s/p fall COMPARISON STUDY: Pelvis 11/09/2022. FINDINGS: No fracture or dislocation within the pelvis or hips. The sacrum appears intact. Vascular c alcifications are noted. Mild degenerative changes within the bilateral hips. There is a Valentine cathet er within the mid pelvis. IMPRESSION: No fracture or dislocation within the pelvis or hips. ACT 112: Negative or not required by law. Electronically signed by: Stan Lopez M.D. 01/24/2023 11:26 AM
--- NOTE | 2023-01-24 11:29 | XRay Report ---
XR chest 1V portable HISTORY: Fall. Sepsis COMPARISON: Chest 01/16/2023. FINDINGS: No pneumothorax. No pleural effusions. The cardiac silhouette remains enlarged. There is a left-sided dual-chamber pacemaker. A few small linear scarlike densities at the lung bases persists. Otherwise, no new focal lung consolidations to suggest a pneumonia. There is mild central pulmonary v ascular congestion without overt edema. This is similar to the prior study. IMPRESSION: Cardiomegaly and mild congestive change. This is similar to the prior study. ACT 112: Negative or not required by law. Electronically signed by: Stan Lopez M.D. 01/24/2023 11:28 AM
[2023-01-24 12:08] LABS: Appearance Urine Cloudy (Clear); Bacteria Urine Automated 1+ (Negative); Bilirubin Urine Negative (Negative); Blood Urine Trace (Negative); Color Urine Yellow; Epithelial Cell Urine Auto 0-5 /lpf (0-5); Glucose Urine UA Negative (Negative); Ketones Urine Negative (Negative); Leukocyte Esterase Urine 3+ (Negative); Nitrite Urine Positive (Negative); Protein Urine Negative (Negative); RBC Urine Automated 0-4 /hpf (0-4); Urobilinogen Urine Negative (Negative); WBC Urine Automated >30 /hpf (0-5)
[2023-01-24] MEDS ORDERED: OPTIRAY 320 100ml IV ONE (12:09)
--- NOTE | 2023-01-24 12:27 | CT Scan Report ---
HEAD CT NONCONTRAST CT DOSE: HISTORY: confusion TECHNIQUE: Multiaxial CT images of the head were performed without the use of intravenous contrast. A utomated exposure control was utilized for this study. A dose lowering technique was utilized adheri ng to the principles of ALARA. Comparison: Head CT 11/09/2022. Findings: The paranasal sinuses and mastoid air cells are clear. The calvarium and skull base are int act. There is no mass, hematoma, midline shift, acute infarct. White matter hypodensity is nonspecifi c but suggestive of microvascular ischemic change. The ventricles and sulci demonstrate mild age-rela kalin involutional changes. Impression: No acute intracranial abnormality. ACT 112: Negative or not required by law. Electronically signed by: Stan Lopez M.D. 01/24/2023 12:26 PM
--- NOTE | 2023-01-24 12:35 | CT Scan Report ---
CT facial bones w con CT DOSE: CLINICAL HISTORY: orbital infection TECHNIQUE: Multiaxial CT images of the facial bones were performed following the intravenous administ ration of 91 cc of Optiray 320. Sagittal and coronal reformations were also obtained. A dose lowerin g technique was utilized adhering to the principles of ALARA. COMPARISON STUDY: CT facial bones 09/28/2013. FINDINGS: Evidence for prior bilateral lens replacement. Otherwise, the globes and retrobulbar fat ar e intact. The optic nerves and extraocular muscles are normal in course and caliber. Preseptal soft t issues are symmetric. No loculated fluid collections to suggest an abscess. The pterygopalatine fossa and visualized parapharyngeal fat spaces are maintained. The parotid and submandibular glands are sy mmetric. The major mucosal airways services are intact. Prevertebral soft tissues and the visualized epiglottis are normal in thickness. No lymphadenopathy identified. The visualized brain parenchyma is unremarkable. The paranasal sinuses and mastoid air cells are clear. No acute fractures identified w ithin the facial bones. IMPRESSION: No significant abnormality within the orbits. ACT 112: Negative or not required by law. Electronically signed by: Stan Lopez M.D. 01/24/2023 12:33 PM
[2023-01-24] MEDS ORDERED: DAPTOmycin 400 MG in SYRINGE 0 ML IV STA (12:38)
[2023-01-24] MEDS ORDERED: AMPICILLIN/SULBACTAM SOD 3,000 MG in 0.9 % SODIUM CHLORIDE 100 ML IV STA (12:38)
[2023-01-24] MEDS ORDERED: ALUMINUM/MAGNESIUM SUSP 30 ML UDC PO PRN (13:19)
[2023-01-24] MEDS ORDERED: MAGNESIUM HYDROXIDE SUSP 30 ML UDC PO PRN (13:19)
[2023-01-24 13:20] LABS: Alanine Aminotransferase 17 U/L (7-52); Albumin Level 3.4 gm/dl (3.4-5.0); Alkaline Phosphatase 128 U/L (34-104); Anion Gap 6 (3-11); BUN Creatinine Ratio 38.8 (10-20); Bilirubin,Total 1.2 mg/dl (0.2-1.0); Blood Urea Nitrogen 52 mg/dl (6-23); Calcium 9.6 mg/dl (8.6-10.3); Carbon Dioxide 36 mmol/L (21-32); Chloride 93 mmol/L (98-107); Creatinine Clr Calc Pharmacy 72.3 ml/min; Est GFR (African American) 61.8 ml/min; Est GFR (Non-African American) 53.3 ml/min; Glucose 190 mg/dl (70-99(Fasting)); Sodium 135 mmol/L (136-145); Total Protein 7.2 gm/dl (6.0-8.3); Troponin I High Sensitivity 16.5 pg/ml (0-20)
--- NOTE | 2023-01-24 13:29 | History & Physical Report ---
Date of Service January 24, 2023 Assessment & Plan (1) UTI (urinary tract infection): (2) Altered mental status: (3) Wound, open, finger: (4) Recurrent falls: (5) Persistent atrial fibrillation: (6) Diabetic peripheral neuropathy associated with type 2 diabetes mellitus: (7) COPD, moderate: (8) Pacemaker: (9) SALAS (obstructive sleep apnea): (10) Venous ulcers of both lower extremities: (11) Infection of eye due to methicillin resistant Staphylococcus aureus (MRSA): Plan 72 year old male presents from [facility] with AMS. UTI on urinalysis. 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 Pt follows with [facility] and his last appointment was on 01/09; noted five pound weight gain over the past two weeks. No leukocytosis; started on Unasyn in ED; await cultures and adjust. 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 UTI: AMS: No Leukocytosis UA: 3+ LE, WBC > 30, Urine culture pending Started on Unasyn in ED; start Cefepime and adjust based on urine culture Blood Cultures ordered Does not appear toxic; hemodynamically stable Trop negative VBG unremarkable without hypercapnia or acidosis. Does not appear toxic; hemodynamically stable mental status improved since arrival combined systolic/diastolic CHF: Follows with [facility]; last appt Takes Metolazone; continue Appears compensated Takes Lasix, Spironolactone; continue Baseline Creatinine 1.2-1.3; today 1.34 Venous ulcers: numerous right foot and left hand 4th and 5th digits ulcers Follows with [facility]; last appt 01/14 OPT records indicate to keep covered with Xeroform Waffle boots ordered Persistent atrial fibrillation: Pacemaker: dual chamber. Chronic atrial fibrillation without additional arrhythmia. Takes Digoxin, Metoprolol, and Eliquis; continue COPD: SALAS: Wears CPAP at night; ordered while here HS Hypothyroidism: Takes Levothyroxine; continue Insulin-dependent diabetes mellitus with peripheral neuropathy: Diabetic Foot ulcers: Follows with wound clinic; healing Takes Gabapentin; continue Novolin SSI and Lantus 70 units BID; continue as inpt ACHS FSBS SSI Check A1C in AM HLD: Takes Atorvastatin; continue Depression: PTSD: Takes Buspar; continue Gout: tales Allopurinol; continue Disposition: PCP: Dr. Rose; [facility] Code Status: Full Code VTE Prophyalxis: On Eliquis I spent a total of 87 minutes coordinating, documenting, and providing care for this patient excluding time spent in the performance of separately billed services. All of the aforementioned completed while collaborating with the assigned attending physician for a full treatment plan. Please see their addendum for further details. History of Present Illness Chief Complaint: confusion Primary Care Provider: Keith Rose DO Mr. Andujar is a 72 year old male who is a resident of [facility] with a complex and extensive PMH including COPD (supplemental home O2), CAD, tachybrady syndrome s/p PM, CKD 3, IDDM2 with peripheral neuropathy, pAF (On Eliquis), morbid obesity, combined CHF, pHTN, chronic venous ulcers, HTN, HLD, SALAS (CPAP HS), depression, hypothyroidism, depression, ocular MRSA, and recurrent falls presents today with confusion. On arrival. Head CT negative, Face CT performed and negative for orbital abnormalities. CXR shows mild cardiomegaly and congestion. Urinalysis positive for UTI. Previous urine culture 07/2020 positive for enterococcus faecalis. He has a history of venous insufficiency and underwent right GSV ablation in the past. He has been experiencing recurrent devi ulcers, all venous wounds currently healed. Also has chronic lower extremity edema and heaviness Hip/pelvic x-ray: No fracture or dislocation within the pelvis or hips. Follows with wound clinic for management of venous ulcers and blisters. No leukocytosis, creatinine 1.34; baseline 1.2-1.3. Last ECHO: 09/04: EF 50%, mild concentric LVH. Pt denies SIMPSON, dizziness, auditory changes, abdominal pain or tenderness, N/V/D, fevers or chills, appetite changes, bowel or bladder changes. Pt does appear on examination to be returning to his mental status baseline with some fluid resuscitation and will be started on IV abx. Patient will be admitted for further evaluation and management. Please see A/P for further details. Allergies Allergy/AdvReac Type Severity Reaction Status Date / Time No Known Allergies Allergy Verified 01/21/23 13:06 Home Medications Medication Instructions Recorded Confirmed Type acetaminophen 325 mg tablet 650 mg PO Q4 PRN Fever Or Pain 06/15/22 01/24/23 History (Tylenol) albuterol sulfate 90 mcg/actuation 2 puff inhalation Q4 PRN Shortness 06/15/22 01/24/23 History aerosol inhaler Of Breath Or Wheezing allopurinol 300 mg tablet 300 mg PO DAILY 06/15/22 01/24/23 History apixaban 5 mg tablet 5 mg PO Q12 06/15/22 01/24/23 History aspirin 81 mg tablet,delayed 81 mg PO DAILY 06/15/22 01/24/23 History release atorvastatin 10 mg tablet 10 mg PO HS 06/15/22 01/24/23 History cholecalciferol (vitamin D3) 25 50 mcg PO DAILY 06/15/22 01/24/23 History mcg (1,000 unit) tablet (Vitamin D3) digoxin 125 mcg (0.125 mg) tablet 125 mcg PO DAILY 06/15/22 01/24/23 History duloxetine 60 mg capsule,delayed 60 mg PO DAILY 06/15/22 01/24/23 History release epinephrine 0.3 mg/0.3 mL 0.3 mg IM DIRECTED PRN Allergic 06/15/22 01/24/23 History injection, auto-injector Reaction erythromycin 5 mg/gram (0.5 %) eye 1 applic OPL BID 06/15/22 01/24/23 History ointment gabapentin 300 mg capsule 300 mg PO QID 06/15/22 01/24/23 History levothyroxine 125 mcg tablet 250 mcg PO DAILYBB 06/15/22 01/24/23 History lidocaine 5 % topical patch 1 patch topical DAILY 06/15/22 01/24/23 History loratadine 10 mg tablet 20 mg PO DAILY PRN .allergies 06/15/22 01/24/23 History magnesium oxide 420 mg tablet 420 mg PO DAILY 06/15/22 01/24/23 History naphazoline 0.025 %-pheniramine 2 drp ophthalmic (eye) Q6 PRN Eye 06/15/22 01/24/23 History 0.3 % eye drops (Naphcon-A) Irritation nitroglycerin 0.4 mg sublingual 0.4 mg sublingual DIRECTED PRN 06/15/22 01/24/23 History tablet (Nitrostat) Chest Pain nystatin 100,000 unit/gram topical 1 applic topical BID wound care 06/15/22 01/24/23 History powder omeprazole 20 mg capsule,delayed 20 mg PO QAM 06/15/22 01/24/23 History release sennosides 8.6 mg tablet (senna) 8.6 mg PO BID 06/15/22 01/24/23 History metoprolol succinate 50 mg 100 mg PO BID #60 tabs 06/23/22 01/24/23 Rx tablet,extended release 24 hr insulin regular human 100 unit/mL 0 - 30 sliding scale dose subcut 07/29/22 01/24/23 History (3 mL) subcutaneous pen (Novolin R ACHS ON TOP OF STANDING MEAL DOSAGE FlexPen) insulin glargine 100 unit/mL 70 unit subcut BID 10/12/22 01/24/23 History subcutaneous solution multivitamin with minerals 1 tab PO DAILY 10/12/22 01/24/23 History spironolactone 25 mg tablet 25 mg PO DAILY 10/12/22 01/24/23 History vit C 250 mg-vit E 90 mg-zinc 40 1 tab PO BID 10/12/22 01/24/23 History mg-copper 1 [id number] capsule (PreserVision AREDS-2) furosemide 80 mg tablet 80 mg PO BID 10/25/22 01/24/23 History polyvinyl alcohol-povidone (PF) 1 drp OPB QID 11/09/22 01/24/23 History 1.4 %-0.6 % eye drops in a dropperette (Refresh Classic (PF)) bupropion HCl 300 mg 24 hr tablet, 300 mg PO QAM 12/30/22 01/24/23 History extended release nitrofurantoin 100 mg PO BID #20 caps 01/16/23 01/24/23 Rx monohydrate/macrocrystals 100 mg capsule (Macrobid) cadexomer iodine 0.9 % topical gel 40 g topical DAILY WOUND CARE TO 01/24/23 01/24/23 History (Iodosorb) RIGHT/LEFT TOES insulin regular human 100 unit/mL 22 unit subcut TIDM 01/24/23 01/24/23 History injection solution (Novolin R Regular U-100 Insulin) menthol 0.44 %-zinc oxide 20.6 % 1 applic topical BID SKIN 01/24/23 01/24/23 History topical ointment (Calmoseptine) PROTECTION metolazone 2.5 mg tablet 2.5 mg PO .[id number] 01/24/23 01/24/23 History miconazole nitrate 2 % topical 1 spray topical DAILY Apply in 01/24/23 01/24/23 History spray powder belly folds for yeast infection potassium chloride 20 mEq 20 meq PO .[id number] 01/24/23 01/24/23 History tablet,extended release(part/cryst) potassium chloride 20 mEq See Rx Instructions .Route .COMPLEX 01/24/23 01/24/23 History tablet,extended release(part/cryst) tramadol 50 mg tablet 100 mg PO .Q4-6H PRN Pain 01/24/23 01/24/23 History vancomycin See Rx Instructions .Route .COMPLEX 01/24/23 01/24/23 History Past Med/Surg History Medical History (Updated 01/24/23 @ 14:22 by RAO Dent) Altered mental status Bifascicular block CAD (coronary artery disease) CKD (chronic kidney disease) stage 3, GFR 30-59 ml/min Claustrophobia COPD, moderate Entropion of left lower eyelid Fatty liver Gout History of fracture Thyroid cartilage in 2019 Interstitial lung disease Nephrolithiasis Osteoarthritis Pustular psoriasis Sarcoidosis possible- evaluated by pulmonary; felt no active sarcoidosis and would not merit steroid therapy given weight/diabetic state. 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 [employer] Pacer check 12/24/17 Status post incision and drainage Family History Mother Cancer Social History Smoking Status: Never smoker Second Hand Exposure: No; Do You Dip or Chew Tobacco: No; Hx Alcohol Use: No Hx Substance Use: No Preferred Language: Surinamese Communication Ability: Effective Visual Impairment: No Limitations Hearing Ability: Normal Geospatial Information Scientist Required: No Beliefs That Will Affect Care: None marital status: Single Current Living Situation: Personal Care Facility Current Living Situation Comment: [facility] current occupational status: retired How many Children do You have: 1 How many Children do You have Comment: children are not involved with care much per pt Other Information That Helps Us Care for You: No Feels Safe at Home: Yes Safety Concerns: Feels Safe At This Time Diet: diabetic Diet Comment: FLUID RESTRICTION-1800ccs per pt report caffeine: No during the past year weight has: other Physical Activity Frequency: Does not Exercise Gender Identity: Male Assistive Devices: Wheelchair Review of Systems Review of Systems: Neuro: (+) Falls, (-) trauma, slurred speech HEENT: (-) SIMPSON, dizziness, dysphagia, visual or auditory changes CV: (-) CP, palpitations, swelling Resp: (-) SOB GI: (-) appetite changes, N/V/D, bowel changes : (-) urinary changes Skin: (-) rashes (+) ulcers on toes and left hand Psych: (-) anxiety, depression Physical Exam Physical Exam: Neuro: AAOx4, able to answer all questions appropriately, left eye with crusting mucocutaneous margin, no aphagia, CNII-XII grossly intact HEENT: head normocephalic, moist mucus membranes CV: S1/S2, pacer on monitor (-) M/G/R, (+) generalized edema, cap refill < 3 seconds (+) PVD in bilateral LE Resp: Lungs CTA in all davis. On 2LNC GI: Abdomen large, S/NT/ND, Ax4 bowel sounds, (-) CVA tenderness Musculoskeletal: 5/5 B/L UE strength, 5/5 B/L LE strength. No gait disturbance Skin: (-) rashes , (-) erythema (+) healing venous ulcers on R foot. Left hand digits 2/3 open blisters covered with xerofrom Psych: euthymic tired mood Results & Data Results & Data Vital Signs (Past 12 Hours) Vital Signs Pulse Resp BP Pulse Ox O2 Del Method O2 Flow Rate 01/24/23 12:00 60 24 136/90 98 Nasal Cannula 4 01/24/23 11:30 64 17 148/94 H 98 Nasal Cannula 4 01/24/23 11:22 71 16 128/79 97 Nasal Cannula 4 01/24/23 10:29 64 18 117/69 95 Nasal Cannula 2 01/24/23 10:19 68 18 95 Nasal Cannula 2 01/24/23 10:01 74 Laboratory Results Short CBC 01/24/23 Range/Units 10:21 WBC 9.66 (4.8-10.8) K/ul Hgb 14.2 (14.0-18.0) g/dl Hct 42.8 (42.0-52.0) % Plt Count 178 (130-400) K/uL BMP 01/24/23 12:21 Sodium 135 L Potassium TNP Chloride 93 L Carbon Dioxide 36 H BUN 52 H Creatinine 1.34 Glucose 190 H Calcium 9.6 Liver Function 01/24/23 Range/Units 12:21 Total Bilirubin 1.2 H (0.2-1.0) mg/dl Direct Bilirubin TNP AST TNP ALT 17 (7-52) U/L Alkaline Phosphatase 128 H (34-104) U/L Albumin 3.4 (3.4-5.0) gm/dl Urine 01/24/23 Range/Units 11:24 Urine Color Yellow Urine Appearance Cloudy A (Clear) Urine pH 7.0 (4.5-7.5) Ur Specific [place] 1.010 (1.000-1.030) Urine Protein Negative (Negative) Urine Glucose (UA) Negative (Negative) Diagnostic Findings Head CT 01/24/23 09:[address] DOSE: HISTORY: confusion TECHNIQUE: Multiaxial CT images of the head were performed without the use of intravenous contrast. Automated exposure control was utilized for this study. A dose lowering technique was utilized adhering to the principles of ALARA. Comparison: Head CT 11/09/2022. Findings: The paranasal sinuses and mastoid air cells are clear. The calvarium and skull base are intact. There is no mass, hematoma, midline shift, acute infarct. White matter hypodensity is nonspecific but suggestive of microvascular ischemic change. The ventricles and sulci demonstrate mild age-related involutional changes. Impression: No acute intracranial abnormality. ACT 112: Negative or not required by law. Electronically signed by: Stan Lopez M.D. 01/24/2023 12:[address] 01/24/23 10:00 CT facial bones w con CT DOSE: CLINICAL HISTORY: orbital infection TECHNIQUE: Multiaxial CT images of the facial bones were performed following the intravenous administration of 91 cc of Optiray 320. Sagittal and coronal reformations were also obtained. A dose lowering technique was utilized adher ing to the principles of ALARA. COMPARISON STUDY: CT facial bones 09/28/2013. FINDINGS: Evidence for prior bilateral lens replacement. Otherwise, the globes and retrobulbar fat are intact. The optic nerves and extraocular muscles are normal in course and caliber. Preseptal soft tissues are symmetric. No loculated fluid collections to suggest an abscess. The pterygopalatine fossa and visualized parapharyngeal fat spaces are maintained. The parotid and submandibular glands are symmetric. The major mucosal airways services are intact. Prevertebral soft tissues and the visualized epiglottis are normal in thickness. No lymphadenopathy identified. The visualized brain parenchyma is unremarkable. The paranasal sinuses and mastoid air cells are clear. No acute fractures identified within the facial bones. IMPRESSION: No significant abnormality within the orbits. ACT 112: Negative or not required by law. Electronically signed by: Stan Lopez M.D. 01/24/2023 12:33 PM Hip/Pelvis X-Ray 01/24/23 10:00 XR hip LT 2V w pelvis CLINICAL HISTORY: left hip pain s/p fall COMPARISON STUDY: Pelvis 11/09/2022. FINDINGS: No fracture or dislocation within the pelvis or hips. The sacrum appears intact. Vascular calcifications are noted. Mild degenerative changes within the bilateral hips. There is a Valentine catheter within the mid pelvis. IMPRESSION: No fracture or dislocation within the pelvis or hips. ACT 112: Negative or not required by law. Electronically signed by: Stan Lopez M.D. 01/24/2023 11:26 AM Chest X-Ray 01/24/23 10:01 XR chest 1V portable HISTORY: Fall. Sepsis COMPARISON: Chest 01/16/2023. FINDINGS: No pneumothorax. No pleural effusions. The cardiac silhouette remains enlarged. There is a left-sided dual-chamber pacemaker. A few small linear scarlike densities at the lung bases persists. Otherwise, no new focal lung consolidations to suggest a pneumonia. There is mild central pulmonary vascular congestion without overt edema. This is similar to the prior study. IMPRESSION: Cardiomegaly and mild congestive change. This is similar to the prior study. ACT 112: Negative or not required by law. Electronically signed by: Stan Lopez M.D. 01/24/2023 11:28 AM Code Status & VTE Plan Code Status Full Code in the event of cardiac or respiratory arrest VTE Prophylaxis Plan VTE Prophylaxis will be ordered: Yes Supervising Physician Co-Signing Physician Notes I have seen and examined the patient and have discussed the case with the kikii margarito above. I agree with the assessment and plan as stated with the following exceptions. 72 yoM with longstanding uncontrolled diabetes among other chronic comorbid conditions presents from [facility] after a fall from his wheelchair and confusion. He has persistent pain in his left hip and knee tonight which has not been controlled with tramadol. Giving oxycodone for this now. There are no acute fractures of the left knee or hip per xrays. He was confused earlier per reports but is clear now. Oriented on questioning. He otherwise feels fine and ate some dinner. His glucose is still elevated and he has a long history of very uncontrolled blood glucose. Last A1C in December 2022 was 10.1. I spoke with his daughter by phone tessy and she expressed concern that although we are fixing the acute UTI here, he is declining and she is wondering if there is more to the story such as an underlying cancer or other more occult illness. He is fatigued and [facility] RNs have had issues with him being intermittently less responsive. We discussed that although there are no indications on bloodwork for any blood cancer, we can certainly look at a peripheral smear. Cancer screenings including colonoscopy should be up to date. However, my opinion on his chronic fatigue is his chronically elevated blood sugar. He has longstanding complications of diabetes including neuropathy and retinopathy. She reports that staff may give him snacks that are high sugar such as ice cream at brim rounder hours if he asks for it. Those should be minimized and possibly seeing his PCP or even an janitor supervisor may be a next option. On exam his lungs are CTAB and cardiac exam reveals S1/2 with no murmurs. He has trace lower extremity edema and is morbidly obese. NAD except he has guarding and pain with palpation of his lateral upper left leg. No simeon ecchymosis is seen. 1. Recurrent falls 2. Acute UTI 3. Acute metabolic encephalopathy 2/2 UTI-resolved 4. Uncontrolled DMII 5. Morbid obesity Agree with continuing broad spectrum abx pending culture results and clinical improvement. Will place glycemic consultation for persistent hyperglycemia despite insulin. Cont with pain control using oxycodone for now. Increased tramadol is an option but may interact with buproprion and SSRI. Peripheral smear ordered per conversation with his daughter who would appreciate an update on the results in am. Bing Andujar . PT/OT to evaluate. PCP to evaluate med list and reduce medications that may be contributing to recurrent falls. Getting overall blood sugar under control with A1C <7 should be a top priority. Hyperglycemia may contribute to UTIs which is his reason for this admission. DO Pete
[2023-01-24] MEDS ORDERED: VANCOMYCIN SCH (14:15)
--- NOTE | 2023-01-24 14:17 | Electrocardiogram Report ---
Test Reason : Blood Pressure : / mmHG Vent. Rate : 061 BPM Atrial Rate : 312 BPM P-R Int : 000 ms QRS Dur : 174 ms QT Int : 480 ms P-R-T Axes : 000 -82 076 degrees QTc Int : 483 ms Ventricular-paced rhythm Atrial fibrillation Left axis deviation Right bundle branch block Inferior infarct , age undetermined Abnormal ECG When compared with ECG of 16-JAN-2023 04:21, No significant change Confirmed by Jim Davenport ([id number]) on 01/24/2023 2:17:16 PM Referred By: Confirmed By:Jim Davenport
[2023-01-24 14:41] LABS: Bilirubin Direct 0.3 mg/dl (0-0.2); Potassium 3.1 mmol/L (3.5-5.1)
[2023-01-24] MEDS ORDERED: GLUCOSE 10 TAB/TUBE PO PRN (17:09)
[2023-01-24] MEDS ORDERED: GLUCAGON FOR INJ 1 MG VIAL SQ PRN (17:09)
[2023-01-24] MEDS ORDERED: CARBOHYDRATES FOR HYPOGLYCEMIA PO PRN (17:09)
[2023-01-24] MEDS ORDERED: DEXTROSE 50% 50 ML SYRINGE IV PRN (17:09)
[2023-01-24] MEDS ORDERED: PHARMACY GLYCEMIC MGMT CONSULT PRN ×2 (17:09→20:59)
[2023-01-24] MEDS ORDERED: GLUCOSE 40% GEL 15 GM TUBE PO PRN (17:09)
[2023-01-24] MEDS: GABAPENTIN 300 MG CAP PO SCH ×2 (17:44→20:33)
[2023-01-24] MEDS: INSULIN ASPART PER UNIT CHARGE SC SCH ×2 (18:25→20:42)
[2023-01-24] MEDS: VANCOMYCIN 25MG/ML FORTIFIED OPH DROPS OPL SCH ×2 (18:26→20:32)
[2023-01-24] MEDS: ARTIFICIAL TEARS OP SCH ×2 (18:28→20:32)
[2023-01-24] MEDS ORDERED: AMPICILLIN/SULBACTAM SOD 3,000 MG in 0.9 % SODIUM CHLORIDE 100 ML IV SCH (20:00)
[2023-01-24] MEDS ORDERED: POTASSIUM CHLORIDE CRTAB 20 MEQ TABCR PO STA (20:06)
[2023-01-24] MEDS: CEFEPIME 2,000 MG in SYRINGE 0 ML IV SCH (20:20)
[2023-01-24] MEDS ORDERED: oxyCODONE HCL IR 5 MG TAB (IMMEDIATE RELEASE) PO STA (20:30)
[2023-01-24] MEDS: NYSTATIN POWDER 15GM BTL EXT SCH (20:33)
[2023-01-24] MEDS: SENNA 8.6 MG TAB PO SCH (20:33)
[2023-01-24] MEDS: MENTHOL-ZINC OXIDE 360 APPLN/120 GM TUBE EXT SCH (20:34)
[2023-01-24] MEDS: POTASSIUM CHLORIDE CRTAB 20 MEQ TABCR PO SCH (20:34)
[2023-01-24] MEDS: FUROSEMIDE 80 MG TAB PO SCH (20:35)
[2023-01-24] MEDS: CEROVITE ADV FORMULA TAB PO SCH (20:35)
[2023-01-24] MEDS: METOPROLOL SUCC 50MG EXT REL TAB PO SCH (20:35)
[2023-01-24] MEDS: APIXABAN 5 MG TABLET PO SCH (20:36)
[2023-01-24] MEDS: ERYTHROMYCIN OP OINT 5 MG/GM 3.5 GM TUBE OPL SCH (20:36)
[2023-01-24] MEDS: ATORVASTATIN 10 MG TAB PO SCH (20:36)
[2023-01-24] MEDS: LANTUS PER UNIT CHARGE SC SCH (20:42)
[2023-01-24] MEDS ORDERED: LANTUS PER UNIT CHARGE SQ SCH (21:00)
[2023-01-25] MEDS ORDERED: INSULIN ASPART PER UNIT CHARGE SC ONE (01:00)
[2023-01-25] MEDS: oxyCODONE HCL IR 5 MG TAB (IMMEDIATE RELEASE) PO PRN (02:45)
[2023-01-25] MEDS: LEVOTHYROXINE SODIUM 125 MCG TABLET PO SCH (05:38)
[2023-01-25] MEDS: FUROSEMIDE 80 MG TAB PO SCH ×2 (08:54→21:11)
[2023-01-25] MEDS: CEROVITE ADV FORMULA TAB PO SCH ×2 (08:55→21:06)
[2023-01-25] MEDS: METOPROLOL SUCC 50MG EXT REL TAB PO SCH ×2 (08:55→21:14)
[2023-01-25] MEDS: ERYTHROMYCIN OP OINT 5 MG/GM 3.5 GM TUBE OPL SCH ×2 (08:55→21:11)
[2023-01-25] MEDS: DULoxetine HCL 60 MG CAP PO SCH (08:56)
[2023-01-25] MEDS: GABAPENTIN 300 MG CAP PO SCH ×4 (08:56→21:10)
[2023-01-25] MEDS: SENNA 8.6 MG TAB PO SCH ×2 (08:56→21:08)
[2023-01-25] MEDS: CHOLECALCIFEROL 1,000 UNITS 25 MCG TAB PO SCH (08:56)
[2023-01-25] MEDS: APIXABAN 5 MG TABLET PO SCH ×2 (08:56→21:12)
[2023-01-25] MEDS: SPIRONOLACTONE 25 MG TAB PO SCH (08:56)
[2023-01-25] MEDS: buPROPion XL 300 MG TABCR PO SCH (08:56)
[2023-01-25] MEDS: allopurinoL 300 MG TAB PO SCH (08:57)
[2023-01-25] MEDS: ASPIRIN 81 MG ECTAB PO SCH (08:57)
[2023-01-25] MEDS: MAGNESIUM OXIDE 400 MG TAB PO SCH (08:57)
[2023-01-25] MEDS: ARTIFICIAL TEARS OP SCH ×4 (08:57→21:13)
[2023-01-25] MEDS: VANCOMYCIN 25MG/ML FORTIFIED OPH DROPS OPL SCH ×4 (08:57→21:02)
[2023-01-25] MEDS: MENTHOL-ZINC OXIDE 360 APPLN/120 GM TUBE EXT SCH ×2 (08:57→21:16)
[2023-01-25] MEDS: POTASSIUM CHLORIDE CRTAB 20 MEQ TABCR PO SCH ×4 (08:57→21:17)
[2023-01-25] MEDS: PANTOprazole 40 MG TAB PO SCH (08:57)
[2023-01-25] MEDS: INSULIN ASPART PER UNIT CHARGE SC SCH ×4 (08:58→20:51)
[2023-01-25] MEDS: LIDOCAINE 5% 1 PATCH TD SCH (08:58)
[2023-01-25] MEDS: CEFEPIME 2,000 MG in SYRINGE 0 ML IV SCH ×2 (08:59→21:02)
[2023-01-25] MEDS: LANTUS PER UNIT CHARGE SC SCH ×2 (08:59→20:59)
[2023-01-25] MEDS ORDERED: DIGOXIN 0.125 MG TAB PO SCH (09:00)
[2023-01-25] MEDS ORDERED: POTASSIUM CHLORIDE CRTAB 20 MEQ TABCR PO SCH (09:00)
[2023-01-25 09:08] LABS: Hematocrit (blood only) 43.3 % (42.0-52.0); Hemoglobin 13.9 g/dl (14.0-18.0); Mean Corpuscular Hemoglobin 27.9 pg (25.0-34.0); Mean Corpuscular Hgb Conc 32.1 g/dL (32.0-36.0); Mean Corpuscular Volume 86.8 fL (80.0-100.0); Mean Platelet Volume 11.5 fL (9.4-12.4); Platelet Count 177 K/uL (130-400); RDW Coefficient of Variation 15.1 % (11.5-14.5); RDW Standard Deviation 47.4 fL (36.4-46.3); Red Blood Count 4.99 M/uL (4.70-6.10); White Blood Count 8.83 K/ul (4.8-10.8)
[2023-01-25 09:35] LABS: Estimated Average Glucose 252 mg/dl; Hemoglobin A1C 10.4 % (4.5-5.6)
[2023-01-25 09:49] LABS: Albumin Globulin Ratio 0.9 (0.9-2); Albumin Level 3.6 gm/dl (3.4-5.0); BUN Creatinine Ratio 38.2 (10-20); Bilirubin,Total 1.4 mg/dl (0.2-1.0); Creatinine Clr Calc Pharmacy 68.2 ml/min; Est GFR (African American) 60.7 ml/min; Est GFR (Non-African American) 52.3 ml/min; Globulin 3.8 gm/dl (2.5-4.0); Phosphorus 3.9 mg/dl (2.5-4.9); Potassium 4.1 mmol/L (3.5-5.1); Total Protein 7.4 gm/dl (6.0-8.3)
[2023-01-25] MEDS: MICONAZOLE NITRATE POWDER 85 GM TOP SCH (12:04)
[2023-01-25] MEDS: NYSTATIN POWDER 15GM BTL EXT SCH ×2 (12:19→21:13)
--- NOTE | 2023-01-25 12:52 | Pharmacy Report ---
Pharmacy Glycemic Short Note 2 - Date of Service January 25, 2023 - Glycemic Short BSG Results (Last 24 hours): 01/24/23 01/24/23 01/24/23 12:21 16:34 20:30 Glucose 190 H POC Glucose 194 H 261 H 01/25/23 01/25/23 01/25/23 00:52 07:49 08:05 Glucose 146 H POC Glucose 228 H 150 H 01/25/23 11:45 Glucose POC Glucose 156 H OUTPATIENT ANTIDIABETIC REGIMEN: * Insulin glargine 70 units SC BID * Regular insulin 22 units SC TIDM plus SSI * HbA1c 10.4% on 01/25/23 ASSESSMENT: * 72 yo M with T2DM well known to our glycemic service admitted with AMS and UTI * Will utilize data from prior admissions to guide current regimen PLAN FOR INPATIENT GLYCEMIC CONTROL: * Basal insulin * Lantus 40-60 units SQ BID, depending on BSG * Bolus insulin * NovoLog per scale ACHS or Q6hrs while NPO * Goal Range: Low 120 mg/dL - High 150 mg/dL * Correction Factor: 12 mg/dL/unit * Nutritional / Prandial insulin per carb ratio of 1 unit per 3 grams CHO consumed
--- NOTE | 2023-01-25 16:27 | Hospitalist Progress Note ---
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 UTI on urinalysis. 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 Pt follows with [facility] and his last appointment was on 01/09; noted five pound weight gain over the past two weeks. No leukocytosis; started on Unasyn in ED; await cultures and adjust. 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 Acute metabolic encephalopathy UTI --CT head:No acute intracranial abnormality. -Urine culture growing gram-negative bacilli -Blood cultures negative to date Continue cefepime Mental status improved Left hip pain Mechanical fall --Hip X ray:No fracture or dislocation within the pelvis or hips. PT OT, fall precautions Check left hip CT Combined systolic/diastolic CHF: Follows with [facility]; last appt --CXR:Cardiomegaly and mild congestive change. This is similar to the prior study. Continue Metolazone, Lasix, Spironolactone Monitor volume status, renal function CKD III Cr at baseline Monitor renal function Venous ulcers: Numerous right foot and left hand 4th and 5th digits ulcers Follows with [facility]; last appt 01/14 OPT records indicate to keep covered with Xeroform Continue Waffle boots Continue wound care Persistent atrial fibrillation: Pacemaker Continue Digoxin, Metoprolol, Eliquis COPD: SALAS: Continue CPAP at bedtime Hypothyroidism: Continue Levothyroxine Insulin-dependent diabetes mellitus with peripheral neuropathy: Diabetic Foot ulcers: Follows with wound clinic HbA1c 10.4 Continue insulin while hospitalized Monitor BGs HLD: Continue Atorvastatin Depression: PTSD: Continue Buspar Gout: Continue Allopurinol Code Status Full Code DVT Px: Eliquis Disposition PT OT prior to discharge Admission and Anticipated Discharge Date Admission Date: January 24, 2023 Subjective Patient is seen and examined at bedside States having left hip pain Denies any chest pain, dyspnea, dizziness, nausea, vomiting, abdominal pain, dysuria, hematuria No other complaints Review of Systems Review of Systems: All systems reviewed & are unremarkable except as noted in Subjective Physical Exam Physical Exam: Physical Exam: Vitals signs as noted above General Appearance:Morbid Obesity, no apparent distress Head: normocephalic, Atraumatic Eyes: normal inspection, EOMI Neck: supple, Trachea midline Respiratory/Chest: Normal breath sounds, CTA, No accessory muscle use Cardiovascular: S1, S2, No murmur Abdomen/GI:Soft, Non tender, Bowel sounds present Extremities/Musculoskeletal:normal inspection, Left hip tender, 1+ edema, chronic venous stasis changes Neurologic/Psych:AAOX3, grossly no focal neurological deficits Skin: normal color, warm Results & Data Results & Data Vital Signs (Past 12 Hours) Vital Signs Temp Pulse Resp BP Pulse Ox O2 Del Method O2 Flow Rate 01/25/23 15:26 36.8 C 67 18 155/71 H 88 L Room Air 01/25/23 13:00 Room Air 01/25/23 11:00 36.7 C 76 18 120/81 90 Room Air 01/25/23 08:00 Nasal Cannula 2 01/25/23 07:00 37.1 C 91 H 18 121/77 94 Room Air Laboratory Results Short CBC 01/25/23 Range/Units 08:05 WBC 8.83 (4.8-10.8) K/ul Hgb 13.9 L (14.0-18.0) g/dl Hct 43.3 (42.0-52.0) % Plt Count 177 (130-400) K/uL BMP 01/25/23 08:05 Sodium 138 Potassium 4.1 D Chloride 96 L Carbon Dioxide 33 H BUN 52 H Creatinine 1.36 Glucose 146 H Calcium 10.0 Liver Function 01/25/23 Range/Units 08:05 Total Bilirubin 1.4 H (0.2-1.0) mg/dl AST 41 H (13-39) U/L ALT 18 (7-52) U/L Alkaline Phosphatase 143 H (34-104) U/L Albumin 3.6 (3.4-5.0) gm/dl
[2023-01-25 17:29] LABS: A calco-baum cmplx NotReported Not Detected (NotDetected); Bact fragilis Not Reported Not Detected (NotDetected); C auris Not Reported Not Detected (NotDetected); Calbicans Not Reported Not Detected (NotDetected); Candida glabrata Not Reported Not Detected (NotDetected); Candida krusei Not Reported Not Detected (NotDetected); Cneoformans/gatti Not Reported Not Detected (NotDetected); Cparapsilosis Not Reported Not Detected (NotDetected); Ctropicalis Not Reported Not Detected (NotDetected); E cloacae compx Not Reported Not Detected (NotDetected); Efaecalis Not Reported Not Detected (NotDetected); Efaecium Not Reported Not Detected (NotDetected); Enterobacterales Not Reported Not Detected (NotDetected); Escherichia coli Not Reported Not Detected (NotDetected); H influenzae Not Reported Not Detected (NotDetected); K aerogenes Not Reported Not Detected (NotDetected); Koxytoca Not Reported Not Detected (NotDetected); Kpneumoniae grp Not Reported Not Detected (NotDetected); Lmonocyt Not Reported Not Detected (NotDetected); N meningitidis Not Reported Not Detected (NotDetected); P aeruginosa Not Reported Not Detected (NotDetected); Proteus spp Not Reported Not Detected (NotDetected); Salmonella spp Not Reported Not Detected (NotDetected); Smarcescens Not Reported Not Detected (NotDetected); Staph lugdunensis Not Reported Not Detected (NotDetected); Staph spp. Not Reported DETECTED (NotDetected); Staphaureus Not Reported Not Detected (NotDetected); Staphepi Not Reported DETECTED (NotDetected); Staphylococcus spp. DETECTED (NotDetected); Stenmaltophilia Not Reported Not Detected (NotDetected); Strep agal(GrpB) Not Reported Not Detected (NotDetected); Strep pneum Not Reported Not Detected (NotDetected); Strep pyog (GrpA) Not Reported Not Detected (NotDetected); Strep spp Not Reported Not Detected (NotDetected)
[2023-01-25] MEDS: DIGOXIN 0.125 MG TAB PO SCH (17:56)
[2023-01-25 18:16] LABS: Staphylococcus epidermidis DETECTED (NotDetected); mecAC Resistant Gene DETECTED (NotDetected)
[2023-01-25] MEDS: ATORVASTATIN 10 MG TAB PO SCH (21:12)
--- NOTE | 2023-01-25 21:48 | CT Scan Report ---
CT hip LT wo con CLINICAL HISTORY: Left hip pain, H/O Fall TECHNIQUE: Multidetector row helical CT of the left hip was performed without intravenous contrast. C oronal and sagittal reformations were obtained. Automated dose lowering techniques and/or adjustment according to patient size were utilized for this examination. CT DOSE: 975.89 mGy.cm Comparison: Comparison is made to left hip radiograph 01/24/2023 FINDINGS: The osseous structures are without fracture or dislocation. Degenerative changes are seen in the join ts. No joint effusion is seen. Vascular calcifications are seen. A Valentine catheter is noted. IMPRESSION: Degenerative changes are seen without evidence of acute fracture. ACT 112: Negative or not required by law. Electronically signed by: Benji Correa M.D. 01/25/2023 9:45 PM
[2023-01-26] MEDS: LEVOTHYROXINE SODIUM 125 MCG TABLET PO SCH (05:36)
[2023-01-26] MEDS: CEROVITE ADV FORMULA TAB PO SCH ×2 (07:47→20:50)
[2023-01-26] MEDS: GABAPENTIN 300 MG CAP PO SCH ×4 (07:48→20:51)
[2023-01-26] MEDS: APIXABAN 5 MG TABLET PO SCH ×2 (07:48→20:50)
[2023-01-26] MEDS: FUROSEMIDE 80 MG TAB PO SCH (07:48)
[2023-01-26] MEDS: ASPIRIN 81 MG ECTAB PO SCH (07:49)
[2023-01-26] MEDS: PANTOprazole 40 MG TAB PO SCH (07:49)
[2023-01-26] MEDS: DULoxetine HCL 60 MG CAP PO SCH (07:49)
[2023-01-26] MEDS: CHOLECALCIFEROL 1,000 UNITS 25 MCG TAB PO SCH (07:49)
[2023-01-26] MEDS: buPROPion XL 300 MG TABCR PO SCH (07:49)
[2023-01-26] MEDS: SENNA 8.6 MG TAB PO SCH ×2 (07:49→20:51)
[2023-01-26] MEDS: SPIRONOLACTONE 25 MG TAB PO SCH (07:49)
[2023-01-26] MEDS: MAGNESIUM OXIDE 400 MG TAB PO SCH (07:50)
[2023-01-26] MEDS: LIDOCAINE 5% 1 PATCH TD SCH (07:50)
[2023-01-26] MEDS: DIGOXIN 0.125 MG TAB PO SCH (07:50)
[2023-01-26] MEDS: allopurinoL 300 MG TAB PO SCH (07:50)
[2023-01-26] MEDS: MICONAZOLE NITRATE POWDER 85 GM TOP SCH (07:51)
[2023-01-26] MEDS: MENTHOL-ZINC OXIDE 360 APPLN/120 GM TUBE EXT SCH ×2 (07:51→20:53)
[2023-01-26] MEDS: NYSTATIN POWDER 15GM BTL EXT SCH ×2 (07:51→20:51)
[2023-01-26] MEDS: ARTIFICIAL TEARS OP SCH ×4 (07:52→20:52)
[2023-01-26] MEDS: METOPROLOL SUCC 50MG EXT REL TAB PO SCH ×2 (07:52→20:50)
[2023-01-26] MEDS: CEFEPIME 2,000 MG in SYRINGE 0 ML IV SCH ×2 (08:07→20:58)
[2023-01-26] MEDS: VANCOMYCIN 25MG/ML FORTIFIED OPH DROPS OPL SCH ×4 (08:08→21:00)
[2023-01-26] MEDS: INSULIN ASPART PER UNIT CHARGE SC SCH ×4 (08:08→21:13)
[2023-01-26] MEDS: LANTUS PER UNIT CHARGE SC SCH ×2 (08:09→21:14)
[2023-01-26] MEDS: ERYTHROMYCIN OP OINT 5 MG/GM 3.5 GM TUBE OPL SCH ×2 (08:17→20:51)
[2023-01-26 08:33] LABS: Hematocrit (blood only) 41.2 % (42.0-52.0); Hemoglobin 13.2 g/dl (14.0-18.0); Mean Corpuscular Hemoglobin 27.6 pg (25.0-34.0); Mean Platelet Volume 11.8 fL (9.4-12.4); Platelet Count 161 K/uL (130-400); RDW Coefficient of Variation 15.3 % (11.5-14.5); RDW Standard Deviation 47.5 fL (36.4-46.3); Red Blood Count 4.79 M/uL (4.70-6.10); White Blood Count 8.77 K/ul (4.8-10.8)
[2023-01-26 08:56] LABS: BUN Creatinine Ratio 29.8 (10-20); Calcium 9.8 mg/dl (8.6-10.3); Creatinine Clr Calc Pharmacy 43.7 ml/min; Est GFR (African American) 34.9 ml/min; Est GFR (Non-African American) 30.1 ml/min; Magnesium 2.1 mg/dl (1.7-2.4); Potassium 4.7 mmol/L (3.5-5.1)
[2023-01-26] MEDS ORDERED: metOLazone 2.5 MG TABLET PO SCH (09:00)
--- NOTE | 2023-01-26 14:17 | Ultrasound Report ---
RENAL ULTRASOUND CLINICAL HISTORY: Acute kidney injury. COMPARISON STUDY: Renal ultrasound June 25, 2018. TECHNIQUE: Sonography of the kidneys and the urinary bladder was performed. FINDINGS: The right kidney measures 12.8 cm in maximal dimension and the left measures 12.7 cm. There is no hydronephrosis. No renal calculus or mass is identified. Bladder contains a Valentine balloon. The bladder is suboptimally assessed on this exam. There is mild bilateral renal cortical thinning. IMPRESSION: 1. No hydronephrosis. 2. Mild bilateral renal cortical thinning. ACT 112: Negative or not required by law. Electronically signed by: Basil Hills M.D. 01/26/2023 2:16 PM
[2023-01-26] MEDS ORDERED: SODIUM CHLORIDE 0.9% 1000ML 1,000 ML IV ONE (14:24)
--- NOTE | 2023-01-26 16:21 | Hospitalist Progress Note ---
Date of Service January 26, 2023 Assessment & Plan (1) UTI (urinary tract infection): (2) Altered mental status: (3) Wound, open, finger: (4) Recurrent falls: (5) Persistent atrial fibrillation: (6) Diabetic peripheral neuropathy associated with type 2 diabetes mellitus: (7) COPD, moderate: (8) Pacemaker: (9) SALAS (obstructive sleep apnea): (10) Venous ulcers of both lower extremities: (11) Infection of eye due to methicillin resistant Staphylococcus aureus (MRSA): Plan Patient is a 72 yr old male presents from [facility] with AMS. UTI on urinalysis. 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 Pt follows with [facility] and his last appointment was on 01/09; noted five pound weight gain over the past two weeks. No leukocytosis; started on Unasyn in ED; await cultures and adjust. 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 Acute metabolic encephalopathy UTI --CT head:No acute intracranial abnormality. -Urine culture growing gram-negative bacilli, Pseudomonas -Blood cultures: 07/16: Coagulase-negative staph not lugdunensis--likely contaminant Continue cefepime Mental status improved Continue current management ALMA ROSA on CKD III -Renal USD:No hydronephrosis. Mild bilateral renal cortical thinning. Cr 2.15 today Hold diuretics Avoid nephrotoxic agents as able Monitor renal function Gentle IV fluids Bladder scan as needed Consider nephrology evaluation if continues to deteriorate Left hip pain Mechanical fall --Hip X ray:No fracture or dislocation within the pelvis or hips. --Hip CT:Degenerative changes are seen without evidence of acute fracture. PT OT, fall precautions Pain is controlled Combined systolic/diastolic CHF: Follows with [facility]; last appt --CXR:Cardiomegaly and mild congestive change. This is similar to the prior study. Monitor volume status, renal function Hold Metolazone, Lasix, Spironolactone due to ALMA ROSA Venous ulcers: Numerous right foot and left hand 4th and 5th digits ulcers Follows with [facility]; last appt 01/14 OPT records indicate to keep covered with Xeroform Continue Waffle boots Continue wound care Persistent atrial fibrillation: Pacemaker Continue Digoxin, Metoprolol, Eliquis COPD: SALAS: Continue CPAP at bedtime Hypothyroidism: Continue Levothyroxine Insulin-dependent diabetes mellitus with peripheral neuropathy: Diabetic Foot ulcers: Follows with wound clinic HbA1c 10.4 Continue insulin while hospitalized Monitor BGs HLD: Continue Atorvastatin Depression: PTSD: Continue Buspar Gout: Continue Allopurinol Code Status Full Code DVT Px: Eliquis Disposition PT OT prior to discharge Admission and Anticipated Discharge Date Admission Date: January 24, 2023 Subjective Patient is seen and examined at bedside Left hip pain is controlled No new complaints Noted worsening renal function Patient Urinating with no issues Denies any chest pain, dyspnea, dizziness, nausea, vomiting, abdominal pain, dysuria, hematuria Review of Systems Review of Systems: All systems reviewed & are unremarkable except as noted in Subjective Physical Exam Physical Exam: Physical Exam: Vitals signs as noted above General Appearance:Morbid Obesity, no apparent distress Head: normocephalic, Atraumatic Eyes: normal inspection, EOMI Neck: supple, Trachea midline Respiratory/Chest: Normal breath sounds, CTA, No accessory muscle use Cardiovascular: S1, S2, No murmur Abdomen/GI:Soft, Non tender, Bowel sounds present Extremities/Musculoskeletal:normal inspection, Left hip tender, 1+ edema, chronic venous stasis changes Neurologic/Psych:AAOX3, grossly no focal neurological deficits Skin: normal color, warm Results & Data Results & Data Vital Signs (Past 12 Hours) Vital Signs Temp Pulse Pulse Resp BP Pulse Ox O2 Del Method 01/26/23 15:41 78 01/26/23 15:24 36.6 C 68 16 144/76 H 92 Room Air 01/26/23 13:06 96 01/26/23 12:39 Room Air 01/26/23 08:06 36.6 C 68 16 139/79 90 Nasal Cannula 01/26/23 07:50 67 01/26/23 07:24 83 O2 Flow Rate 01/26/23 15:41 01/26/23 15:24 01/26/23 13:06 01/26/23 12:39 01/26/23 08:06 2 01/26/23 07:50 01/26/23 07:24 Laboratory Results Short CBC 01/26/23 Range/Units 07:49 WBC 8.77 (4.8-10.8) K/ul Hgb 13.2 L (14.0-18.0) g/dl Hct 41.2 L (42.0-52.0) % Plt Count 161 (130-400) K/uL BMP 01/26/23 07:49 Sodium 133 L Potassium 4.7 Chloride 95 L Carbon Dioxide 30 BUN 64 H Creatinine 2.15 H D Glucose 189 H Calcium 9.8
[2023-01-26] MEDS: ATORVASTATIN 10 MG TAB PO SCH (20:51)
[2023-01-27] MEDS: LEVOTHYROXINE SODIUM 125 MCG TABLET PO SCH (05:15)
[2023-01-27] MEDS: CEFEPIME 2,000 MG in SYRINGE 0 ML IV SCH ×2 (07:44→19:43)
[2023-01-27] MEDS: PANTOprazole 40 MG TAB PO SCH (07:54)
[2023-01-27] MEDS: buPROPion XL 300 MG TABCR PO SCH (07:54)
[2023-01-27] MEDS: MAGNESIUM OXIDE 400 MG TAB PO SCH (07:54)
[2023-01-27] MEDS: DULoxetine HCL 60 MG CAP PO SCH (07:54)
[2023-01-27] MEDS: allopurinoL 300 MG TAB PO SCH (07:55)
[2023-01-27] MEDS: APIXABAN 5 MG TABLET PO SCH ×2 (07:55→19:46)
[2023-01-27] MEDS: ASPIRIN 81 MG ECTAB PO SCH (07:55)
[2023-01-27] MEDS: CHOLECALCIFEROL 1,000 UNITS 25 MCG TAB PO SCH (07:55)
[2023-01-27] MEDS: CEROVITE ADV FORMULA TAB PO SCH ×2 (07:56→19:49)
[2023-01-27] MEDS: METOPROLOL SUCC 50MG EXT REL TAB PO SCH ×2 (07:56→19:48)
[2023-01-27] MEDS: GABAPENTIN 300 MG CAP PO SCH ×3 (07:56→19:47)
[2023-01-27] MEDS: NYSTATIN POWDER 15GM BTL EXT SCH ×2 (07:57→19:46)
[2023-01-27] MEDS: LIDOCAINE 5% 1 PATCH TD SCH (07:57)
[2023-01-27] MEDS: SENNA 8.6 MG TAB PO SCH ×2 (07:57→19:50)
[2023-01-27] MEDS: MICONAZOLE NITRATE POWDER 85 GM TOP SCH (07:58)
[2023-01-27] MEDS: ERYTHROMYCIN OP OINT 5 MG/GM 3.5 GM TUBE OPL SCH ×2 (07:58→19:44)
[2023-01-27] MEDS: ARTIFICIAL TEARS OP SCH ×4 (07:59→19:44)
[2023-01-27] MEDS: MENTHOL-ZINC OXIDE 360 APPLN/120 GM TUBE EXT SCH ×2 (08:01→19:45)
[2023-01-27] MEDS: INSULIN ASPART PER UNIT CHARGE SC SCH ×4 (08:05→21:25)
[2023-01-27] MEDS: LANTUS PER UNIT CHARGE SC SCH ×2 (08:06→21:26)
[2023-01-27] MEDS: VANCOMYCIN 25MG/ML FORTIFIED OPH DROPS OPL SCH ×4 (08:20→21:26)
--- NOTE | 2023-01-27 08:26 | Pharmacy Report ---
Pharmacy Glycemic Short Note 2 - Date of Service January 27, 2023 - Glycemic Short BSG Results (Last 24 hours): 01/26/23 01/26/23 01/26/23 07:49 11:14 11:15 Glucose 189 H POC Glucose 302 H* 272 H 01/26/23 01/26/23 01/27/23 16:25 20:38 07:45 Glucose POC Glucose 230 H 169 H 147 H OUTPATIENT ANTIDIABETIC REGIMEN: * Insulin glargine 70 units SC BID * Regular insulin 22 units SC TIDM plus SSI HbA1c 10.4% on 01/25/23 ASSESSMENT: 01/27/23: * BSGs elevated yesterday, ranging 169-272 mg/dL * Received 173 units of insulin (120 units of which were basal) * Fasting BSG improved today at 147 mg/dL - will continue current basal * Carb ratio tightened yesterday, will tighten correction factor today 01/25/23: * 72 yo M with T2DM well known to our glycemic service admitted with AMS and UTI * Will utilize data from prior admissions to guide current regimen PLAN FOR INPATIENT GLYCEMIC CONTROL: * Basal insulin * Lantus 60 units SC BID * Bolus insulin * NovoLog per scale ACHS or Q6hrs while NPO * Goal Range: Low 120 mg/dL - High 150 mg/dL * Correction Factor: 10 mg/dL/unit * Nutritional / Prandial insulin per carb ratio of 1 unit per 2.5 grams CHO consumed
[2023-01-27 11:02] LABS: BUN Creatinine Ratio 29.8 (10-20); Calcium 9.7 mg/dl (8.6-10.3); Creatinine Clr Calc Pharmacy 42.9 ml/min; Est GFR (African American) 34.3 ml/min; Est GFR (Non-African American) 29.6 ml/min; Potassium 3.6 mmol/L (3.5-5.1)
[2023-01-27] MEDS ORDERED: levoFLOXacin 750 MG TAB PO SCH (12:00)
--- NOTE | 2023-01-27 12:07 | Nephrology Consultation ---
Date of Consultation January 27, 2023 Assessment & Plan (1) ALMA ROSA (acute kidney injury): Stage I nonoliguric acute kidney injury on CKD 3A with baseline creatinine of 1.2-1.3 for an estimated GFR of about 55 mL/min. Renal function appears for now to have plateau'd but may still worsen. Suspicious for contrast-induced nephropathy given timing of change in function and its abruptness, unremarkable renal ultrasound, stable hemodynamics. 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 Past medical history includes COPD (supplemental home O2), CAD, tachybrady syndrome s/p PM, CKD 3, IDDM2 with peripheral neuropathy, pAF (On Eliquis), class III obesity, combined HF, chronic venous ulcers, HTN, HLD, SALAS (CPAP HS), depression, hypothyroidism, ocular MRSA, recurrent falls. His renal function was at baseline of creatinine 1.2-1.3 on presentation. On January 25, creatinine was 1.4, on January 26 creatinine was 2.2 where it remains today. He had IV contrast for a facial CT on January 24 which showed no evidence of orbital infection. He is being treated with cefepime. Not currently on diuretics > though did have home doses of metolazone, furosemide, spironolactone at regular doses until and including AM 01/26. He is 1.6 L negative to date for the admission. He denies sob. He c/o soreness in his L leg including sciatica; also w/ sacral pain. no orthopnea or cough. no palpitations. endorses edema BLE, thinks it's about bas keo for him. no n/v or f/c or decreased po. Allergies Allergy/AdvReac Type Severity Reaction Status Date / Time No Known Allergies Allergy Verified 01/21/23 13:06 Home Medications Medication Instructions Recorded Confirmed Type acetaminophen 325 mg tablet 650 mg PO Q4 PRN Fever Or Pain 06/15/22 01/24/23 History (Tylenol) albuterol sulfate 90 mcg/actuation 2 puff inhalation Q4 PRN Shortness 06/15/22 01/24/23 History aerosol inhaler Of Breath Or Wheezing allopurinol 300 mg tablet 300 mg PO DAILY 06/15/22 01/24/23 History apixaban 5 mg tablet 5 mg PO Q12 06/15/22 01/24/23 History aspirin 81 mg tablet,delayed 81 mg PO DAILY 06/15/22 01/24/23 History release atorvastatin 10 mg tablet 10 mg PO HS 06/15/22 01/24/23 History cholecalciferol (vitamin D3) 25 50 mcg PO DAILY 06/15/22 01/24/23 History mcg (1,000 unit) tablet (Vitamin D3) digoxin 125 mcg (0.125 mg) tablet 125 mcg PO DAILY 06/15/22 01/24/23 History duloxetine 60 mg capsule,delayed 60 mg PO DAILY 06/15/22 01/24/23 History release epinephrine 0.3 mg/0.3 mL 0.3 mg IM DIRECTED PRN Allergic 06/15/22 01/24/23 History injection, auto-injector Reaction erythromycin 5 mg/gram (0.5 %) eye 1 applic OPL BID 06/15/22 01/24/23 History ointment gabapentin 300 mg capsule 300 mg PO QID 06/15/22 01/24/23 History levothyroxine 125 mcg tablet 250 mcg PO DAILYBB 06/15/22 01/24/23 History lidocaine 5 % topical patch 1 patch topical DAILY 06/15/22 01/24/23 History loratadine 10 mg tablet 20 mg PO DAILY PRN .allergies 06/15/22 01/24/23 History magnesium oxide 420 mg tablet 420 mg PO DAILY 06/15/22 01/24/23 History naphazoline 0.025 %-pheniramine 2 drp ophthalmic (eye) Q6 PRN Eye 06/15/22 01/24/23 History 0.3 % eye drops (Naphcon-A) Irritation nitroglycerin 0.4 mg sublingual 0.4 mg sublingual DIRECTED PRN 06/15/22 01/24/23 History tablet (Nitrostat) Chest Pain nystatin 100,000 unit/gram topical 1 applic topical BID wound care 06/15/22 01/24/23 History powder omeprazole 20 mg capsule,delayed 20 mg PO QAM 06/15/22 01/24/23 History release sennosides 8.6 mg tablet (senna) 8.6 mg PO BID 06/15/22 01/24/23 History metoprolol succinate 50 mg 100 mg PO BID #60 tabs 06/23/22 01/24/23 Rx tablet,extended release 24 hr insulin regular human 100 unit/mL 0 - 30 sliding scale dose subcut 07/29/22 0 01/24/23 History (3 mL) subcutaneous pen (Novolin R ACHS ON TOP OF STANDING MEAL DOSAGE FlexPen) insulin glargine 100 unit/mL 70 unit subcut BID 10/12/22 01/24/23 History subcutaneous solution multivitamin with minerals 1 tab PO DAILY 10/12/22 01/24/23 History spironolactone 25 mg tablet 25 mg PO DAILY 10/12/22 01/24/23 History vit C 250 mg-vit E 90 mg-zinc 40 1 tab PO BID 10/12/22 01/24/23 History mg-copper 1 [id number] capsule (PreserVision AREDS-2) furosemide 80 mg tablet 80 mg PO BID 10/25/22 01/24/23 History polyvinyl alcohol-povidone (PF) 1 drp OPB QID 11/09/22 01/24/23 History 1.4 %-0.6 % eye drops in a dropperette (Refresh Classic (PF)) bupropion HCl 300 mg 24 hr tablet, 300 mg PO QAM 12/30/22 01/24/23 History extended release nitrofurantoin 100 mg PO BID #20 caps 01/16/23 01/24/23 Rx monohydrate/macrocrystals 100 mg capsule (Macrobid) cadexomer iodine 0.9 % topical gel 40 g topical DAILY WOUND CARE TO 01/24/23 01/24/23 History (Iodosorb) RIGHT/LEFT TOES insulin regular human 100 unit/mL 22 unit subcut TIDM 01/24/23 01/24/23 History injection solution (Novolin R Regular U-100 Insulin) menthol 0.44 %-zinc oxide 20.6 % 1 applic topical BID SKIN 01/24/23 01/24/23 History topical ointment (Calmoseptine) PROTECTION metolazone 2.5 mg tablet 2.5 mg PO .[id number] 01/24/23 01/24/23 History miconazole nitrate 2 % topical 1 spray topical DAILY Apply in 01/24/23 01/24/23 History spray powder belly folds for yeast infection potassium chloride 20 mEq 20 meq PO .[id number] 01/24/23 01/24/23 History tablet,extended release(part/cryst) potassium chloride 20 mEq See Rx Instructions .Route .COMPLEX 01/24/23 01/24/23 History tablet,extended release(part/cryst) tramadol 50 mg tablet 100 mg PO .Q4-6H PRN Pain 01/24/23 01/24/23 History vancomycin See Rx Instructions .Route .COMPLEX 01/24/23 01/24/23 History Patient History Medical History (Updated 01/27/23 @ 12:03 by Cristal Merritt MD, PhD) Altered mental status Bifascicular block CAD (coronary artery disease) CKD (chronic kidney disease) stage 3, GFR 30-59 ml/min Claustrophobia COPD, moderate Entropion of left lower eyelid Fatty liver Gout History of fracture Thyroid cartilage in 2018 Interstitial lung disease Nephrolithiasis Osteoarthritis Pustular psoriasis Sarcoidosis possible- evaluated by pulmonary; felt no active sarcoidosis and would not merit steroid therapy given weight/diabetic state. 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 [employer] Pacer check 12/24/17 Status post incision and drainage Family History Mother Cancer Social History Smoking Status: Never smoker Second Hand Exposure: No; Do You Dip or Chew Tobacco: No; Hx Alcohol Use: No Hx Substance Use: No Preferred Language: Luxembourgish Communication Ability: Effective Visual Impairment: No Limitations Hearing Ability: Normal Manager Science Required: No Beliefs That Will Affect Care: None marital status: Single Current Living Situation: Personal Care Facility Current Living Situation Comment: [facility] current occupational status: retired How many Children do You have: 1 How many Children do You have Comment: children are not involved with care much per pt Other Information That Helps Us Care for You: No Feels Safe at Home: Yes Safety Concerns: Feels Safe At This Time Diet: diabetic Diet Comment: FLUID RESTRICTION-1800ccs per pt report caffeine: No during the past year weight has: other Physical Activity Frequency: Does not Exercise Gender Identity: Male Assistive Devices: Oxygen - at Night and Scooter/Electric Scooter Review of Systems Review of Systems: All systems reviewed & are unremarkable except as noted in HPI & below Physical Exam Constitutional: well developed, well nourished, + obese, + frail appearing and cooperative; no acute distress Eyes: EOM intact bilaterally ENMT: Ears: + hearing impairment; no external ear abnormality Nose: no external nose abnormality Mouth: + dry oral mucous membranes and + edentulous Neck: no nuchal rigidity Respiratory: normal respiratory effort Auscultation: + diminished lung sounds and + crackles (bibasilar) Cardiovascular: Rate/Rhythm: regular rate and regular rhythm Extremities: + edema (1+ BLE) Gastrointestinal (Abdomen): Inspection/Auscultation: normal bowel sounds Percussion/Palpation: abdomen soft; abdomen nontender Musculoskeletal: Extremities: strength 5/5 throughout Skin: no rashes, warm and dry Trauma: + evidence of skin trauma Neurologic: mejía, limited speech, no tremor Genitourinary: bagley w/ ample light yellow urine Results & Data Vital Signs (Past 12 Hours) Vital Signs Temp Pulse Resp BP Pulse Ox O2 Del Method 01/27/23 11:20 36.4 C L 65 16 101/76 93 Room Air 01/27/23 07:55 36.5 C 74 16 111/65 92 Room Air 01/27/23 04:20 36.6 C 70 18 123/73 93 Room Air 01/27/23 00:37 36.3 C L 76 18 142/76 H 92 Room Air Laboratory Results 01/26/23 07:49 01/27/23 09:40 Diagnostic Findings Chest x-ray January 24 FINDINGS: No pneumothorax. No pleural effusions. The cardiac silhouette remains enlarged. There is a left-sided dual-chamber pacemaker. A few small linear scarlike densities at the lung bases persists. Otherwise, no new focal lung consolidations to suggest a pneumonia. There is mild central pulmonary vascular congestion without overt edema. This is similar to the prior study. IMPRESSION: Cardiomegaly and mild congestive change. This is similar to the prior study. Renal ultrasound January 26 FINDINGS: The right kidney measures 12.8 cm in maximal dimension and the left measures 12.7 cm. There is no hydronephrosis. No renal calculus or mass is identified. Bladder contains a Bagley balloon. The bladder is suboptimally assessed on this exam. There is mild bilateral renal cortical thinning. IMPRESSION: 1. No hydronephrosis. 2. Mild bilateral renal cortical thinning.
[2023-01-27] MEDS: oxyCODONE HCL IR 5 MG TAB (IMMEDIATE RELEASE) PO PRN ×2 (12:28→18:34)
[2023-01-27] MEDS: DAPTOmycin 375 MG in SYRINGE 0 ML IV SCH (13:44)
[2023-01-27] MEDS: DIGOXIN 0.125 MG TAB PO SCH (17:07)
--- NOTE | 2023-01-27 17:13 | Hospitalist Progress Note ---
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 UTI on urinalysis. 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 Pt follows with [facility] and his last appointment was on 01/09; noted five pound weight gain over the past two weeks. No leukocytosis; started on Unasyn in ED; await cultures and adjust. 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 Acute metabolic encephalopathy UTI --CT head:No acute intracranial abnormality. -Urine culture growing Pseudomonas, Stenotrophomonas -Blood cultures: 07/16: Coagulase-negative staph not lugdunensis--likely contaminant Continue cefepime, added Levaquin Mental status back to baseline ID consulted for recs ALMA ROSA on CKD III ? Contrast-induced nephropathy -Renal USD:No hydronephrosis. Mild bilateral renal cortical thinning. Cr 2.18 today Hold diuretics Avoid nephrotoxic agents as able Monitor renal function Received IV fluids Bladder scan as needed Appreciate nephrology input Urine analysis with microscopy pending Finger wound infection Finger wound culture growing MRSA, group B beta strep Added Daptomycin, continue cefepime as above Continue wound care Left hip pain Mechanical fall --Hip X ray:No fracture or dislocation within the pelvis or hips. --Hip CT:Degenerative changes are seen without evidence of acute fracture. PT OT, fall precautions Pain is controlled Combined systolic/diastolic CHF: Follows with [facility]; last appt --CXR:Cardiomegaly and mild congestive change. This is similar to the prior study. Monitor volume status, renal function Hold Metolazone, Lasix, Spironolactone due to ALMA ROSA Venous ulcers: Numerous right foot and left hand 4th and 5th digits ulcers Follows with [facility]; last appt 01/14 OPT records indicate to keep covered with Xeroform Continue Waffle boots Continue wound care Persistent atrial fibrillation: Pacemaker Continue Digoxin, Metoprolol, Eliquis COPD: SALAS: Continue CPAP at bedtime Hypothyroidism: Continue Levothyroxine Insulin-dependent diabetes mellitus with peripheral neuropathy: Diabetic Foot ulcers: Follows with wound clinic HbA1c 10.4 Continue insulin while hospitalized Monitor BGs HLD: Continue Atorvastatin Depression: PTSD: Continue Buspar Gout: Continue Allopurinol Code Status Full Code DVT Px: Eliquis Disposition PT OT prior to discharge Admission and Anticipated Discharge Date Admission Date: January 24, 2023 Subjective Patient is seen and examined at bedside States having intermittent dysuria Left hip pain is controlled Denies any chest pain, dyspnea, dizziness, nausea, vomiting, abdominal pain, dysuria, hematuria Discussed with nephrology today Finger wound culture growing MRSA, group B beta strep Urine culture growing Pseudomonas, Stenotrophomonas Review of Systems Review of Systems: All systems reviewed & are unremarkable except as noted in Subjective Physical Exam Physical Exam: Physical Exam: Vitals signs as noted above General Appearance:Morbid Obesity, no apparent distress Head: normocephalic, Atraumatic Eyes: normal inspection, EOMI Neck: supple, Trachea midline Respiratory/Chest: Normal breath sounds, CTA, No accessory muscle use Cardiovascular: S1, S2, No murmur Abdomen/GI:Soft, Non tender, Bowel sounds present Extremities/Musculoskeletal:normal inspection, Left hip tender, 1+ edema, chronic venous stasis changes Neurologic/Psych:AAOX3, grossly no focal neurological deficits Skin: normal color, warm Results & Data Results & Data Vital Signs (Past 12 Hours) Vital Signs Temp Pulse Pulse Resp BP Pulse Ox O2 Del Method 01/27/23 17:07 74 01/27/23 15:49 36.5 C 73 16 113/66 93 Room Air 01/27/23 11:20 36.4 C L 65 16 101/76 93 Room Air 01/27/23 07:55 36.5 C 74 16 111/65 92 Room Air Laboratory Results [facility] 01/27/23 09:40 Sodium 134 L Potassium 3.6 D Chloride 97 L Carbon Dioxide 28 BUN 65 H Creatinine 2.18 H Glucose 199 H Calcium 9.7
[2023-01-27 19:16] LABS: Appearance Urine Turbid (Clear); Bacteria Urine Automated 1+ (Negative); Bilirubin Urine Negative (Negative); Blood Urine 2+ (Negative); Color Urine Dark Yellow; Epithelial Cell Urine Auto >30 /lpf (0-5); Glucose Urine UA Negative (Negative); Ketones Urine Negative (Negative); Leukocyte Esterase Urine 3+ (Negative); Nitrite Urine Positive (Negative); Protein Urine 1+ (Negative); RBC Urine Automated 0-4 /hpf (0-4); Specific Gravity Urine 1.015 (1.000-1.030); Urobilinogen Urine Negative (Negative); WBC Urine Automated >30 /hpf (0-5); pH Urine 6.5 (4.5-7.5)
[2023-01-28] MEDS: LEVOTHYROXINE SODIUM 125 MCG TABLET PO SCH (05:38)
[2023-01-28 07:12] LABS: BUN Creatinine Ratio 31.1 (10-20); Calcium 9.6 mg/dl (8.6-10.3); Creatinine Clr Calc Pharmacy 49.3 ml/min; Est GFR (African American) 40.5 ml/min; Est GFR (Non-African American) 34.9 ml/min; Potassium 3.6 mmol/L (3.5-5.1)
[2023-01-28] MEDS: INSULIN ASPART PER UNIT CHARGE SC SCH ×4 (08:24→20:39)
[2023-01-28] MEDS: NYSTATIN POWDER 15GM BTL EXT SCH ×2 (08:34→20:27)
[2023-01-28] MEDS: MICONAZOLE NITRATE POWDER 85 GM TOP SCH (08:35)
[2023-01-28] MEDS: MENTHOL-ZINC OXIDE 360 APPLN/120 GM TUBE EXT SCH ×2 (08:35→20:21)
[2023-01-28] MEDS: ERYTHROMYCIN OP OINT 5 MG/GM 3.5 GM TUBE OPL SCH ×2 (08:36→20:26)
[2023-01-28] MEDS: CEFEPIME 2,000 MG in SYRINGE 0 ML IV SCH (08:36)
[2023-01-28] MEDS: VANCOMYCIN 25MG/ML FORTIFIED OPH DROPS OPL SCH ×4 (08:37→20:40)
[2023-01-28] MEDS: buPROPion XL 300 MG TABCR PO SCH (08:39)
[2023-01-28] MEDS: CHOLECALCIFEROL 1,000 UNITS 25 MCG TAB PO SCH (08:39)
[2023-01-28] MEDS: allopurinoL 300 MG TAB PO SCH (08:39)
[2023-01-28] MEDS: ASPIRIN 81 MG ECTAB PO SCH (08:39)
[2023-01-28] MEDS: MAGNESIUM OXIDE 400 MG TAB PO SCH (08:39)
[2023-01-28] MEDS: DULoxetine HCL 60 MG CAP PO SCH (08:39)
[2023-01-28] MEDS: PANTOprazole 40 MG TAB PO SCH (08:39)
[2023-01-28] MEDS: METOPROLOL SUCC 50MG EXT REL TAB PO SCH ×2 (08:40→20:40)
[2023-01-28] MEDS: GABAPENTIN 300 MG CAP PO SCH ×3 (08:41→20:23)
[2023-01-28] MEDS: CEROVITE ADV FORMULA TAB PO SCH ×2 (08:41→20:24)
[2023-01-28] MEDS: SENNA 8.6 MG TAB PO SCH ×2 (08:41→20:22)
[2023-01-28] MEDS: ARTIFICIAL TEARS OP SCH ×4 (08:42→20:25)
[2023-01-28] MEDS: APIXABAN 5 MG TABLET PO SCH ×2 (08:42→20:23)
[2023-01-28] MEDS: LANTUS PER UNIT CHARGE SC SCH ×2 (08:48→20:38)
[2023-01-28] MEDS: oxyCODONE HCL IR 5 MG TAB (IMMEDIATE RELEASE) PO PRN ×2 (08:50→15:57)
[2023-01-28] MEDS: LIDOCAINE 5% 1 PATCH TD SCH ×2 (09:10→20:21)
[2023-01-28] MEDS: DAPTOmycin 375 MG in SYRINGE 0 ML IV SCH (12:15)
[2023-01-28] MEDS: MoRPHine SULFATE 2 MG/ML CARP IV PRN ×2 (12:33→17:08)
--- NOTE | 2023-01-28 12:55 | Nephrology Progress Note ---
Date of Service January 28, 2023 Assessment & Plan (1) ALMA ROSA (acute kidney injury): Plan: slowly improving stage I nonoliguric acute kidney injury on CKD 3A with baseline creatinine of 1.2-1.3 for an estimated GFR of about 55 mL/min. Renal function plateau'd at 2.2 creat, down to 1.9 today. Suspicious for contrast-induced nephropathy given timing of change in function and its abruptness, unremarkable renal ultrasound, stable hemodynamics. Repeat UACM w/ bagley noted - continue bagley as needed; from neph standpoint could d/c Daily basic metabolic panel No indication for discussion or consideration of dialysis at this time For continue to hold Lasix, metolazone, spironolactone, potassium supplements one more day if possible >>if acute dyspnea, recommend lasix 40-60 mg IV x 1 prn Admission and Anticipated Discharge Date Admission Date: January 24, 2023 Subjective no interval events. denies sob, n/v. ongoing sciatica L hip pain Review of Systems Review of Systems: All systems reviewed & are unremarkable except as noted in Subjective Physical Exam Constitutional: well developed, well nourished, + obese, + frail appearing and cooperative; no acute distress Eyes: EOM intact bilaterally ENMT: Ears: + hearing impairment; no external ear abnormality Nose: no exte rnal nose abnormality Mouth: + dry oral mucous membranes and + edentulous Neck: no nuchal rigidity Respiratory: normal respiratory effort Auscultation: + diminished lung sounds and + crackles (bibasilar) Cardiovascular: Rate/Rhythm: regular rate and regular rhythm Extremities: + edema (1+ BLE) Gastrointestinal (Abdomen): Inspection/Auscultation: normal bowel sounds Percussion/Palpation: abdomen soft; abdomen nontender Musculoskeletal: Extremities: strength 5/5 throughout Skin: no rashes, warm and dry Trauma: + evidence of skin trauma Results & Data Vital Signs (Past 12 Hours) Vital Signs Temp Pulse Resp BP Pulse Ox O2 Del Method 01/28/23 11:36 36.5 C 70 20 98/63 L 95 Room Air 01/28/23 08:10 36.8 C 77 20 114/69 92 Room Air Laboratory Results 01/26/23 07:49 01/28/23 05:41
[2023-01-28] MEDS: POLYETHYLENE (MIRALAX) 17 GM PACK PO PRN (15:28)
[2023-01-28] MEDS: DIGOXIN 0.125 MG TAB PO SCH (15:29)
--- NOTE | 2023-01-28 15:57 | Hospitalist Progress Note ---
Date of Service January 28, 2023 Assessment & Plan (1) UTI (urinary tract infection): (2) Altered mental status: (3) Wound, open, finger: (4) Recurrent falls: (5) Persistent atrial fibrillation: (6) Diabetic peripheral neuropathy associated with type 2 diabetes mellitus: (7) COPD, moderate: (8) Pacemaker: (9) SALAS (obstructive sleep apnea): (10) Venous ulcers of both lower extremities: (11) Infection of eye due to methicillin resistant Staphylococcus aureus (MRSA): Plan Patient is a 72 yr old male presents from [facility] with AMS. UTI on urinalysis. 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 Pt follows with [facility] and his last appointment was on 01/09; noted five pound weight gain over the past two weeks. No leukocytosis; started on Unasyn in ED; await cultures and adjust. 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 Acute metabolic encephalopathy UTI --CT head:No acute intracranial abnormality. -Urine culture growing Pseudomonas, Stenotrophomonas -Blood cultures: 07/16: Coagulase-negative staph not lugdunensis--likely contaminant Continue cefepime, added Levaquin Mental status back to baseline ID consulted--waiting Input ALMA ROSA on CKD III ? Contrast-induced nephropathy -Renal USD:No hydronephrosis. Mild bilateral renal cortical thinning. Cr 2.18>1.9 Hold diuretics Avoid nephrotoxic agents as able Received IV fluids Bladder scan as needed Appreciate nephrology input Continue to monitor Finger wound infection Finger wound culture growing MRSA, group B beta strep Added Daptomycin, continue cefepime as above Continue wound care Left hip pain Mechanical fall --Hip X ray:No fracture or dislocation within the pelvis or hips. --Hip CT:Degenerative changes are seen without evidence of acute fracture. PT OT, fall precautions Pain is controlled Combined systolic/diastolic CHF: Follows with [facility]; last appt --CXR:Cardiomegaly and mild congestive change. This is similar to the prior study. Monitor volume status, renal function Hold Metolazone, Lasix, Spironolactone due to ALMA ROSA Venous ulcers: Numerous right foot and left hand 4th and 5th digits ulcers Follows with [facility]; last appt 01/14 OPT records indicate to keep covered with Xeroform Continue Waffle boots Continue wound care Persistent atrial fibrillation: Pacemaker Continue Digoxin, Metoprolol, Eliquis COPD: SALAS: Continue CPAP at bedtime Hypothyroidism: Continue Levothyroxine Insulin-dependent diabetes mellitus with peripheral neuropathy: Diabetic Foot ulcers: Follows with wound clinic HbA1c 10.4 Continue insulin while hospitalized Monitor BGs HLD: Continue Atorvastatin Depression: PTSD: Continue Buspar Gout: Continue Allopurinol Code Status Full Code DVT Px: Eliquis Disposition PT OT prior to discharge Admission and Anticipated Discharge Date Admission Date: January 24, 2023 Subjective Patient is seen and examined at bedside Reports generalized soreness Sitting in chair during my encounter Also reports intermittent dysuria Denies any chest pain, dyspnea, dizziness, nausea, vomiting, abdominal pain, dysuria, hematuria Review of Systems Review of Systems: All systems reviewed & are unremarkable except as noted in Subjective Physical Exam Physical Exam: Physical Exam: Vitals signs as noted above General Appearance:Morbid Obesity, no apparent distress Head: normocephalic, Atraumatic Eyes: normal inspection, EOMI Neck: supple, Trachea midline Respiratory/Chest: Normal breath sounds, CTA, No accessory muscle use Cardiovascular: S1, S2, No murmur Abdomen/GI:Soft, Non tender, Bowel sounds present Extremities/Musculoskeletal:normal inspection, Left hip tender, 1+ edema, chronic venous stasis changes Neurologic/Psych:AAOX3, grossly no focal neurological deficits Skin: normal color, warm Results & Data Results & Data Vital Signs (Past 12 Hours) Vital Signs Temp Pulse Pulse Resp BP Pulse Ox O2 Del Method 01/28/23 15:29 69 01/28/23 15:06 36.3 C L 71 20 110/71 93 Room Air 01/28/23 11:36 36.5 C 70 20 98/63 L 95 Room Air 01/28/23 08:10 36.8 C 77 20 114/69 92 Room Air Laboratory Results [facility] 01/28/23 05:41 Sodium 135 L Potassium 3.6 Chloride 99 Carbon Dioxide 28 BUN 59 H Creatinine 1.90 H Glucose 138 H Calcium 9.6 Urine 01/27/23 Range/Units 18:38 Urine Color Dark Yellow Urine Appearance Turbid A (Clear) Urine pH 6.5 (4.5-7.5) Ur Specific [place] 1.015 (1.000-1.030) Urine Protein 1+ H (Negative) Urine Glucose (UA) Negative (Negative)
[2023-01-28] MEDS ORDERED: Nursing to Pharmacy Communication SCH (18:30)
[2023-01-28] MEDS ORDERED: PHENAZOPYRIDINE HCL 100 MG TAB PO PRN (18:30)
[2023-01-28] MEDS: Cefepime 2,000 MG Extended Infusion IV SCH (20:20)
[2023-01-29] MEDS: LEVOTHYROXINE SODIUM 125 MCG TABLET PO SCH (06:15)
[2023-01-29 07:21] LABS: Hematocrit (blood only) 39.5 % (42.0-52.0); Hemoglobin 12.7 g/dl (14.0-18.0); Mean Corpuscular Hemoglobin 27.9 pg (25.0-34.0); Mean Corpuscular Hgb Conc 32.2 g/dL (32.0-36.0); Mean Corpuscular Volume 86.6 fL (80.0-100.0); Platelet Count 160 K/uL (130-400); RDW Coefficient of Variation 15.3 % (11.5-14.5); RDW Standard Deviation 47.8 fL (36.4-46.3); Red Blood Count 4.56 M/uL (4.70-6.10); White Blood Count 7.74 K/ul (4.8-10.8)
[2023-01-29 07:40] LABS: BUN Creatinine Ratio 34.6 (10-20); Calcium 9.7 mg/dl (8.6-10.3); Creatinine Clr Calc Pharmacy 57.4 ml/min; Est GFR (African American) 49.1 ml/min; Est GFR (Non-African American) 42.4 ml/min; Potassium 3.5 mmol/L (3.5-5.1)
[2023-01-29] MEDS: CEROVITE ADV FORMULA TAB PO SCH ×2 (08:33→21:38)
[2023-01-29] MEDS: DULoxetine HCL 60 MG CAP PO SCH (08:33)
[2023-01-29] MEDS: MAGNESIUM OXIDE 400 MG TAB PO SCH (08:34)
[2023-01-29] MEDS: buPROPion XL 300 MG TABCR PO SCH (08:34)
[2023-01-29] MEDS: CHOLECALCIFEROL 1,000 UNITS 25 MCG TAB PO SCH (08:34)
[2023-01-29] MEDS: GABAPENTIN 300 MG CAP PO SCH ×3 (08:35→21:38)
[2023-01-29] MEDS: APIXABAN 5 MG TABLET PO SCH ×2 (08:35→21:37)
[2023-01-29] MEDS: PANTOprazole 40 MG TAB PO SCH (08:35)
[2023-01-29] MEDS: ASPIRIN 81 MG ECTAB PO SCH (08:35)
[2023-01-29] MEDS: SENNA 8.6 MG TAB PO SCH ×2 (08:36→21:38)
[2023-01-29] MEDS: allopurinoL 300 MG TAB PO SCH (08:36)
[2023-01-29] MEDS: Cefepime 2,000 MG Extended Infusion IV SCH ×2 (08:37→17:08)
[2023-01-29] MEDS: ARTIFICIAL TEARS OP SCH ×4 (08:37→21:36)
[2023-01-29] MEDS: NYSTATIN POWDER 15GM BTL EXT SCH ×2 (08:38→21:34)
[2023-01-29] MEDS: VANCOMYCIN 25MG/ML FORTIFIED OPH DROPS OPL SCH ×4 (08:38→23:02)
[2023-01-29] MEDS: MENTHOL-ZINC OXIDE 360 APPLN/120 GM TUBE EXT SCH ×2 (08:38→21:35)
[2023-01-29] MEDS: ERYTHROMYCIN OP OINT 5 MG/GM 3.5 GM TUBE OPL SCH ×2 (08:38→21:36)
[2023-01-29] MEDS: MICONAZOLE NITRATE POWDER 85 GM TOP SCH (08:38)
[2023-01-29] MEDS: METOPROLOL SUCC 50MG EXT REL TAB PO SCH ×2 (08:42→21:35)
[2023-01-29] MEDS: INSULIN ASPART PER UNIT CHARGE SC SCH ×4 (08:48→21:28)
[2023-01-29] MEDS: LANTUS PER UNIT CHARGE SC SCH ×2 (08:49→21:28)
[2023-01-29] MEDS: levoFLOXacin 750 MG TAB PO SCH (12:24)
[2023-01-29] MEDS: DAPTOmycin 375 MG in SYRINGE 0 ML IV SCH (12:55)
--- NOTE | 2023-01-29 15:03 | Hospitalist Progress Note ---
Date of Service January 29, 2023 Assessment & Plan (1) UTI (urinary tract infection): (2) Altered mental status: (3) Wound, open, finger: (4) Recurrent falls: (5) Persistent atrial fibrillation: (6) Diabetic peripheral neuropathy associated with type 2 diabetes mellitus: (7) COPD, moderate: (8) Pacemaker: (9) SALAS (obstructive sleep apnea): (10) Venous ulcers of both lower extremities: (11) Infection of eye due to methicillin resistant Staphylococcus aureus (MRSA): Plan Patient is a 72 yr old male presents from [facility] with AMS. UTI on urinalysis. 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 Pt follows with [facility] and his last appointment was on 01/09; noted five pound weight gain over the past two weeks. No leukocytosis; started on Unasyn in ED; await cultures and adjust. 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 Acute metabolic encephalopathy UTI --CT head:No acute intracranial abnormality. -Urine culture growing Pseudomonas, Stenotrophomonas -Blood cultures: 07/16: Coagulase-negative staph not lugdunensis--likely contaminant Continue cefepime, added Levaquin Mental status back to baseline ID consulted--waiting Input ALMA ROSA on CKD III ? Contrast-induced nephropathy -Renal USD:No hydronephrosis. Mild bilateral renal cortical thinning. Cr 2.18>1.9>1.6 Hold diuretics Avoid nephrotoxic agents as able Received IV fluids Bladder scan as needed Appreciate nephrology input Continue to monitor Renal function slowly improving Finger wound infection Finger wound culture growing MRSA, group B beta strep Added Daptomycin, continue cefepime as above Continue wound care And adjust medications based on ID recommendations Left hip pain/Back Pain Mechanical fall --Hip X ray:No fracture or dislocation within the pelvis or hips. --Hip CT:Degenerative changes are seen without evidence of acute fracture. PT OT, fall precautions Pain is controlled Obtain lumbar CT Combined systolic/diastolic CHF: Follows with [facility]; last appt --CXR:Cardiomegaly and mild congestive change. This is similar to the prior study. Monitor volume status, renal function Hold Metolazone, Lasix, Spironolactone due to ALMA ROSA Venous ulcers: Numerous right foot and left hand 4th and 5th digits ulcers Follows with [facility]; last appt 01/14 OPT records indicate to keep covered with Xeroform Continue Waffle boots Continue wound care Persistent atrial fibrillation: Pacemaker Continue Digoxin, Metoprolol, Eliquis COPD: SALAS: Continue CPAP at bedtime Hypothyroidism: Continue Levothyroxine Insulin-dependent diabetes mellitus with peripheral neuropathy: Diabetic Foot ulcers: Follows with wound clinic HbA1c 10.4 Continue insulin while hospitalized Monitor BGs HLD: Continue Atorvastatin Depression: PTSD: Continue Buspar Gout: Continue Allopurinol Code Status Full Code DVT Px: Eliquis Disposition PT OT prior to discharge Admission and Anticipated Discharge Date Admission Date: January 24, 2023 Subjective Patient is seen and examined at bedside Reports lower back pain radiating down left lower extremity Has some discomfort at catheter site Denies any chest pain, dyspnea, dizziness, nausea, vomiting, abdominal pain, hematuria Renal function slowly improving ID input pending Review of Systems Review of Systems: All systems reviewed & are unremarkable except as noted in Subjective Physical Exam Physical Exam: Physical Exam: Vitals signs as noted above General Appearance:Morbid Obesity, no apparent distress Head: normocephalic, Atraumatic Eyes: normal inspection, EOMI Neck: supple, Trachea midline Respiratory/Chest: Normal breath sounds, CTA, No accessory muscle use Cardiovascular: S1, S2, No murmur Abdomen/GI:Soft, Non tender, Bowel sounds present Extremities/Musculoskeletal:normal inspection, Left hip tender, 1+ edema, chronic venous stasis changes Neurologic/Psych:AAOX3, grossly no focal neurological deficits Skin: normal color, warm Results & Data Results & Data Vital Signs (Past 12 Hours) Vital Signs Temp Pulse Resp BP Pulse Ox O2 Del Method O2 Flow Rate 01/29/23 13:11 70 93 Room Air 01/29/23 11:22 36.4 C L 63 18 122/64 86 L Room Air 01/29/23 08:42 67 107/68 01/29/23 09:15 Room Air 01/29/23 07:00 36.3 C L 59 L 18 113/63 94 Nasal Cannula 2 Laboratory Results Short CBC 01/29/23 Range/Units 07:00 WBC 7.74 (4.8-10.8) K/ul Hgb 12.7 L (14.0-18.0) g/dl Hct 39.5 L (42.0-52.0) % Plt Count 160 (130-400) K/uL BMP 01/29/23 07:00 Sodium 137 Potassium 3.5 Chloride 101 Carbon Dioxide 31 BUN 56 H Creatinine 1.62 H Glucose 116 H Calcium 9.7
[2023-01-29] MEDS: DIGOXIN 0.125 MG TAB PO SCH (17:02)
--- NOTE | 2023-01-29 17:38 | Nephrology Progress Note ---
Date of Service January 29, 2023 Assessment & Plan (1) ALMA ROSA (acute kidney injury): Plan: slowly improving stage I nonoliguric acute kidney injury on CKD 3A with baseline creatinine of 1.2-1.3 for an estimated GFR of about 55 mL/min. Renal function plateau'd at 2.2 creat, down to 1.6 today. Suspicious for contrast-induced nephropathy given timing of change in function and its abruptness, unremarkable renal ultrasound, stable hemodynamics. Repeat UACM w/ bagley noted - continue bagley as needed; from neph standpoint could d/c Daily basic metabolic panel For continue to hold Lasix, metolazone, spironolactone, potassium supplements one more day if possible >>if acute dyspnea, recommend lasix 40 mg IV x 1 prn Admission and Anticipated Discharge Date Admission Date: January 24, 2023 Subjective seen on AM rounds; no acute interval events. leg/hip pain controlled when I saw him ; no sob, no n/v; eating well Review of Systems Review of Systems: All systems reviewed & are unremarkable except as noted in Subjective Physical Exam Constitutional: well developed, well nourished, + obese, + frail appearing and cooperative; no acute distress Eyes: EOM intact bilaterally ENMT: Ears: + hearing impairment; no external ear abnormality Nose: no external nose abnormality Mouth: + dry oral mucous membranes and + edentulous Neck: no nuchal rigidity Respiratory: normal respiratory effort Auscultation: + diminished lung sounds and + crackles (bibasilar) Cardiovascular: Rate/Rhythm: regular rate and regular rhythm Extremities: + edema (1+ BLE) Gastrointestinal (Abdomen): Inspection/Auscultation: normal bowel sounds Percussion/Palpation: abdomen soft; abdomen nontender Musculoskeletal: Extremities: strength 5/5 throughout Skin: no rashes, warm and dry Trauma: + evidence of skin trauma Results & Data Vital Signs (Past 12 Hours) Vital Signs Temp Pulse Pulse Resp BP Pulse Ox O2 Del Method 01/29/23 17:02 68 01/29/23 15:00 36.5 C 69 18 88/57 L 99 Room Air 01/29/23 15:01 67 01/29/23 13:11 70 93 Room Air 01/29/23 11:22 36.4 C L 63 18 122/64 86 L Room Air 01/29/23 08:42 67 107/68 01/29/23 09:15 Room Air 01/29/23 07:00 36.3 C L 59 L 18 113/63 94 Nasal Cannula O2 Flow Rate 01/29/23 17:02 01/29/23 15:00 01/29/23 15:01 01/29/23 13:11 01/29/23 11:22 01/29/23 08:42 01/29/23 09:15 01/29/23 07:00 2 Laboratory Results 01/29/23 07:00 01/29/23 07:00
--- NOTE | 2023-01-29 19:48 | CT Scan Report ---
LUMBAR SPINE CT WITHOUT CONTRAST CLINICAL HISTORY: Back pain following fall. Evaluate for fracture. COMPARISON STUDY: Lumbar spine CT December 25, 2021. TECHNIQUE: Axial images of the lumbar spine were obtained without IV contrast. Sagittal and coronal r econstructions were viewed. Automated exposure control was utilized for the study. A dose lowering t echnique was utilized adhering to the principles of ALARA. FINDINGS: Alignment of the lumbar spine is anatomic. There is no lumbar spine fracture. There is mode rate disc space narrowing at L5-S1. Sacroiliac joints are intact. There are no suspicious osseous les ions. There is mild multilevel facet arthrosis. There is asymmetric enlargement of the inferior left psoas and left iliopsoas muscles, partially imaged on this exam. There is also mild adjacent strandin g. This may extend into the left iliacus muscle. IMPRESSION: 1. No lumbar spine fracture or subluxation. 2. Intramuscular hemorrhage within portions of the left psoas, iliopsoas and iliacus muscles. The hem orrhage is partially imaged on this exam. A CT of the abdomen and pelvis could be obtained for furthe r evaluation. ACT 112: Negative or not required by law. Electronically signed by: Basil Hills M.D. 01/29/2023 7:46 PM
[2023-01-29] MEDS: oxyCODONE HCL IR 5 MG TAB (IMMEDIATE RELEASE) PO PRN (21:27)
[2023-01-29] MEDS: LIDOCAINE 5% 1 PATCH TD SCH (21:34)
[2023-01-30] MEDS: Cefepime 2,000 MG Extended Infusion IV SCH ×3 (00:52→16:09)
[2023-01-30] MEDS: ACETAMINOPHEN 325 MG TAB PO PRN (00:53)
[2023-01-30] MEDS: oxyCODONE HCL IR 5 MG TAB (IMMEDIATE RELEASE) PO PRN ×3 (04:29→21:57)
[2023-01-30] MEDS: LEVOTHYROXINE SODIUM 125 MCG TABLET PO SCH (06:27)
[2023-01-30 07:20] LABS: Hemoglobin 12.5 g/dl (14.0-18.0); Mean Corpuscular Hemoglobin 27.8 pg (25.0-34.0); Mean Corpuscular Hgb Conc 32.9 g/dL (32.0-36.0); Mean Corpuscular Volume 84.4 fL (80.0-100.0); Platelet Count 170 K/uL (130-400); RDW Coefficient of Variation 15.2 % (11.5-14.5); RDW Standard Deviation 46.1 fL (36.4-46.3)
[2023-01-30 07:45] LABS: BUN Creatinine Ratio 34.4 (10-20); Creatinine Clr Calc Pharmacy 57.1 ml/min; Est GFR (African American) 48.7 ml/min; Est GFR (Non-African American) 42.1 ml/min; Potassium 3.5 mmol/L (3.5-5.1)
[2023-01-30] MEDS: ASPIRIN 81 MG ECTAB PO SCH (09:12)
[2023-01-30] MEDS: CHOLECALCIFEROL 1,000 UNITS 25 MCG TAB PO SCH (09:12)
[2023-01-30] MEDS: PANTOprazole 40 MG TAB PO SCH (09:12)
[2023-01-30] MEDS: DULoxetine HCL 60 MG CAP PO SCH (09:13)
[2023-01-30] MEDS: APIXABAN 5 MG TABLET PO SCH ×2 (09:13→21:44)
[2023-01-30] MEDS: allopurinoL 300 MG TAB PO SCH (09:13)
[2023-01-30] MEDS: MAGNESIUM OXIDE 400 MG TAB PO SCH (09:13)
[2023-01-30] MEDS: SENNA 8.6 MG TAB PO SCH ×2 (09:13→21:45)
[2023-01-30] MEDS: buPROPion XL 300 MG TABCR PO SCH (09:13)
[2023-01-30] MEDS: CEROVITE ADV FORMULA TAB PO SCH ×2 (09:13→21:44)
[2023-01-30] MEDS: GABAPENTIN 300 MG CAP PO SCH ×4 (09:13→20:43)
[2023-01-30] MEDS: METOPROLOL SUCC 50MG EXT REL TAB PO SCH ×2 (09:14→20:46)
[2023-01-30] MEDS: ARTIFICIAL TEARS OP SCH ×4 (09:15→20:42)
[2023-01-30] MEDS: ERYTHROMYCIN OP OINT 5 MG/GM 3.5 GM TUBE OPL SCH ×2 (09:16→20:44)
[2023-01-30] MEDS: NYSTATIN POWDER 15GM BTL EXT SCH ×2 (09:16→20:45)
[2023-01-30] MEDS: MICONAZOLE NITRATE POWDER 85 GM TOP SCH (09:16)
[2023-01-30] MEDS: MENTHOL-ZINC OXIDE 360 APPLN/120 GM TUBE EXT SCH ×2 (09:16→20:45)
[2023-01-30] MEDS: INSULIN ASPART PER UNIT CHARGE SC SCH ×4 (09:17→20:49)
[2023-01-30] MEDS: VANCOMYCIN 25MG/ML FORTIFIED OPH DROPS OPL SCH ×4 (09:17→20:48)
[2023-01-30] MEDS: LANTUS PER UNIT CHARGE SC SCH ×2 (09:28→21:44)
--- NOTE | 2023-01-30 11:55 | Pharmacy Report ---
Pharmacy Glycemic Short Note 2 - Date of Service January 30, 2023 - Glycemic Short BSG Results (Last 24 hours): 01/29/23 01/29/23 01/30/23 16:31 20:46 07:04 Glucose 231 H POC Glucose 158 H 126 H 01/30/23 11:38 Glucose POC Glucose 242 H OUTPATIENT ANTIDIABETIC REGIMEN: * Insulin glargine 70 units SC BID * Regular insulin 22 units SC TIDM plus SSI HbA1c 10.4% on 01/25/23 ASSESSMENT: 01/30/23: * Patient received total of 178 units of insulin yesterday, of which 120 units were basal * Fasting BSG elevated at 231 mg/dL this AM - patient has been receiving 120 units of basal/day the last several days and fasting BSGs have been <160 mg/dL * Unclear reasoning for higher fasting blood sugar this AM. Unsure if snacking overnight. Will continue same basal insulin for today, may need to increase further tomorrow if still elevated * Tightened CF/CR this AM 01/27/23: * BSGs elevated yesterday, ranging 169-272 mg/dL * Received 173 units of insulin (120 units of which were basal) * Fasting BSG improved today at 147 mg/dL - will continue current basal * Carb ratio tightened yesterday, will tighten correction factor today 01/25/23: * 72 yo M with T2DM well known to our glycemic service admitted with AMS and UTI * Will utilize data from prior admissions to guide current regimen PLAN FOR INPATIENT GLYCEMIC CONTROL: * Basal insulin * Lantus 60 units SC BID * Bolus insulin * NovoLog per scale ACHS or Q6hrs while NPO * Goal Range: Low 120 mg/dL - High 150 mg/dL * Correction Factor: 8 mg/dL/unit * Nutritional / Prandial insulin per carb ratio of 1 unit per 2 grams CHO consumed
[2023-01-30] MEDS: levoFLOXacin 750 MG TAB PO SCH (12:36)
[2023-01-30] MEDS: DAPTOmycin 375 MG in SYRINGE 0 ML IV SCH (13:15)
[2023-01-30] MEDS: DIGOXIN 0.125 MG TAB PO SCH (16:09)
--- NOTE | 2023-01-30 17:33 | Nephrology Progress Note ---
Date of Service January 30, 2023 Assessment & Plan (1) ALMA ROSA (acute kidney injury): Plan: slowly improving stage I nonoliguric acute kidney injury on CKD 3A with baseline creatinine of 1.2-1.3 for an estimated GFR of about 55 mL/min. Renal function plateau'd at 2.2 creat, then drifted down down to plateau at 1.6 past 48 hrs. Suspicious for contrast-induced nephropathy given timing of change in function and its abruptness, unremarkable renal ultrasound, stable hemodynamics. Repeat UACM w/ bgaley noted. mild hyponatremia emerging - continue bagley as needed; from neph standpoint could d/c Daily basic metabolic panel >>>starting w/ evening dose, resumed lasix 80 mg po bid and potassium supplements and spironolactone For now continue to hold metolazone one more day if possible >>if acute dyspnea, recommend lasix 40 mg IV x 1 prn Admission and Anticipated Discharge Date Admission Date: January 24, 2023 Subjective no interval events clinically. pain reasonably controlled this am. good appetite; no sob Review of Systems Review of Systems: All systems reviewed & are unremarkable except as noted in Subjective Physical Exam Constitutional: well developed, well nourished, + obese, + frail appearing and cooperative; no acute distress Eyes: EOM intact bilaterally ENMT: Ears: + hearing impairment; no external ear abnormality Nose: no external nose abnormality Mouth: + dry oral mucous membranes and + edentulous Neck: no nuchal rigidity Respiratory: normal respiratory effort Auscultation: + diminished lung sounds and + crackles (bibasilar) Cardiovascular: Rate/Rhythm: regular rate and regular rhythm Extremities: + edema (trace BLE) Gastrointestinal (Abdomen): Inspection/Auscultation: normal bowel sounds Percussion/Palpation: abdomen soft; abdomen nontender Musculoskeletal: Extremities: strength 5/5 throughout Skin: no rashes, warm and dry Trauma: + evidence of skin trauma Results & Data Vital Signs (Past 12 Hours) Vital Signs Temp Pulse Pulse Resp BP BP Pulse Ox 01/30/23 16:09 65 01/30/23 15:00 65 01/30/23 15:06 36.6 C 68 18 129/81 96 01/30/23 13:51 76 01/30/23 11:23 36.4 C L 65 14 169/82 H 92 07/21/23 08:11 36.3 C L 73 16 126/53 L 94 01/30/23 06:05 78 102/56 L 91 O2 Del Method 01/30/23 16:09 01/30/23 15:00 01/30/23 15:06 Room Air 01/30/23 13:51 01/30/23 11:23 Room Air 01/30/23 08:11 Room Air 01/30/23 06:05 Room Air Laboratory Results 01/30/23 07:04 01/30/23 07:04
--- NOTE | 2023-01-30 17:41 | Hospitalist Progress Note ---
Date of Service January 30, 2023 Assessment & Plan (1) UTI (urinary tract infection): (2) Altered mental status: (3) Wound, open, finger: (4) Recurrent falls: (5) Persistent atrial fibrillation: (6) Diabetic peripheral neuropathy associated with type 2 diabetes mellitus: (7) COPD, moderate: (8) Pacemaker: (9) SALAS (obstructive sleep apnea): (10) Venous ulcers of both lower extremities: (11) Infection of eye due to methicillin resistant Staphylococcus aureus (MRSA): Plan Patient is a 72 yr old male presents from [facility] with AMS. UTI on urinalysis. 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 [facility] and his last appointment was on 01/09; noted five pound weight gain over the past two weeks. No leukocytosis; started on Unasyn in ED; await cultures and adjust. 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 Acute metabolic encephalopathy UTI --CT head:No acute intracranial abnormality. -Urine culture growing Pseudomonas, Stenotrophomonas -Blood cultures: 07/16: Coagulase-negative staph not lugdunensis--likely contaminant Has been on cefepime, added Levaquin Mental status back to baseline Appreciate ID input and recommendation Levaquin can be stopped Will continue cefepime for now ALMA ROSA on CKD III Contrast-induced nephropathy -Renal USD:No hydronephrosis. Mild bilateral renal cortical thinning. Cr 2.18>1.9>1.6 Hold diuretics Avoid nephrotoxic agents as able Received IV fluids Bladder scan as needed Appreciate nephrology input and recommendation Continue to monitor Renal function slowly improving and keep improving Finger wound infection Finger wound culture growing MRSA, group B beta strep Added Daptomycin, continue cefepime as above Continue wound care And adjust medications based on ID recommendations Daptomycin can be discontinued and doxycycline will be added to finish the course up to 25th Left hip pain/Back Pain Mechanical fall --Hip X ray:No fracture or dislocation within the pelvis or hips. --Hip CT:Degenerative changes are seen without evidence of acute fracture. PT OT, fall precautions Pain is controlled Obtain lumbar CT Combined systolic/diastolic CHF: [facility] last appt --CXR:Cardiomegaly and mild congestive change. This is similar to the prior study. Monitor volume status, renal function Hold Metolazone, Lasix, Spironolactone due to ALMA ROSA Will need to restart Lasix when the kidney function improves Venous ulcers: Numerous right foot and left hand 4th and 5th digits ulcers Follows with [facility]; last appt 01/14 OPT records indicate to keep covered with Xeroform Continue Waffle boots Continue wound care Persistent atrial fibrillation: Pacemaker Continue Digoxin, Metoprolol, Eliquis COPD: SALAS: Continue CPAP at bedtime Hypothyroidism: Continue Levothyroxine Insulin-dependent diabetes mellitus with peripheral neuropathy: Diabetic Foot ulcers: Follows with wound clinic HbA1c 10.4 Continue insulin while hospitalized Monitor BGs HLD: Continue Atorvastatin Depression: PTSD: Continue Buspar Gout: Continue Allopurinol Code Status Full Code DVT Px: Eliquis Disposition PT OT prior to discharge Admission and Anticipated Discharge Date Admission Date: January 24, 2023 Subjective 01/30/2023 The patient was seen and examined in medical telemetry unit He has been stable and denies any significant symptoms Denies any fever and or chills, any hand pain or increasing swelling or redness, any shortness of breath or palpitation Review of Systems Review of Systems: All systems reviewed and are unremarkable except as noted below Physical Exam Physical Exam: Sitting on a chair without any acute distress Constitutional: well developed, well nourished, + ill appearing and + morbidly obese Eyes: PERRL, conjunctivae normal, anicteric sclerae ENMT: external ear and nose normal, oropharynx normal Neck: trachea midline, no thyromegaly Respiratory: no respiratory distress Auscultation: + diminished lung sounds and + crackles (Bibasilar crackles) Cardiovascular: Rate/Rhythm: regular rate and regular rhythm; not tachycardic Heart Sounds: normal S1 and normal S2; no murmur Extremities: + edema (Trace to 1+ edema bilaterally) Gastrointestinal (Abdomen): Inspection/Auscultation: + abdomen distended and normal bowel sounds Percussion/Palpation: abdomen soft; abdomen nontender Musculoskeletal: No acute arthritis involving any of the joint Neurologic: Alert and awake. Generally weak but no focal neurodeficit Lymphatic: no cervical or axillary lymphadenopathy Results & Data Results & Data Vital Signs (Past 12 Hours) Vital Signs Temp Pulse Pulse Resp BP BP Pulse Ox 01/30/23 16:09 65 01/30/23 15:00 65 01/30/23 15:06 36.6 C 68 18 129/81 96 01/30/23 13:51 76 01/30/23 11:23 36.4 C L 65 14 169/82 H 92 01/30/23 08:11 36.3 C L 73 16 126/53 L 94 01/30/23 06:05 78 102/56 L 91 O2 Del Method 01/30/23 16:09 01/30/23 15:00 01/30/23 15:06 Room Air 01/30/23 13:51 01/30/23 11:23 Room Air 01/30/23 08:11 Room Air 01/30/23 06:05 Room Air Laboratory Results Short CBC 01/30/23 Range/Units 07:04 WBC 8.60 (4.8-10.8) K/ul Hgb 12.5 L (14.0-18.0) g/dl Hct 38.0 L (42.0-52.0) % Plt Count 170 (130-400) K/uL BMP 01/30/23 07:04 Sodium 133 L Potassium 3.5 Chloride 98 Carbon Dioxide 27 BUN 56 H Creatinine 1.63 H Glucose 231 H Calcium 10.0 Medications Administered Current Inpatient Medications Acetaminophen (Acetaminophen 325 Mg Tab) 650 mg PO Q4H PRN PRN Reason: Pain or Fever Stop: 02/23/23 13:18 Last Admin: 01/30/23 00:53 Dose: 650 mg Al Hydrox/Mg Hydrox/Simethicone (Aluminum/Magnesium Susp 30 Ml Udc) 15 ml PO Q4H PRN PRN Reason: Dyspepsia Stop: 02/23/23 13:18 Allopurinol (Allopurinol 300 Mg Tab) 300 mg PO DAILY OFE Stop: 02/24/23 08:59 Last Admin: 01/30/23 09:13 Dose: 300 mg Apixaban (Apixaban 5 Mg Tablet) 5 mg PO Q12 OFE Stop: 02/23/23 20:59 Last Admin: 01/30/23 09:13 Dose: 5 mg Artificial Tears (Artificial Tears) 1 drops OP QID OFE Stop: 02/23/23 16:59 Last Admin: 01/30/23 17:08 Dose: 1 drops Aspirin (Aspirin 81 Mg Ectab) 81 mg PO DAILY OFE Stop: 02/24/23 08:59 Last Admin: 01/30/23 09:12 Dose: 81 mg Atorvastatin Calcium (Atorvastatin 10 Mg Tab) 10 mg PO HS OFE Stop: 02/23/23 20:59 Last Admin: 01/26/23 20:51 Dose: 10 mg Bupropion HCl (Bupropion Xl 300 Mg Tabcr) 300 mg PO QAM OFE Stop: 02/24/23 08:59 Last Admin: 01/30/23 09:13 Dose: 300 mg Calamine/Phenol (Menthol-Zinc Oxide 360 Appln/120 Gm Tube) 1 appln EXT BID OFE Stop: 02/23/23 20:59 Last Admin: 01/30/23 09:16 Dose: 1 appln Dextrose (Dextrose 50% 50 Ml Syringe) 25 - 50 ml IV UD PRN; Protocol PRN Reason: Hypoglycemia Protocol Stop: 02/23/23 17:08 Digoxin (Digoxin 0.125 Mg Tab) 0.125 mg PO DAILY@1600 [facility] Stop: 02/24/23 15:59 Last Admin: 01/30/23 16:09 Dose: 0.125 mg Duloxetine HCl (Duloxetine Hcl 60 Mg Cap) 60 mg PO DAILY OFE Stop: 02/24/23 08:59 Last Admin: 01/30/23 09:13 Dose: 60 mg Erythromycin (Erythromycin Op Oint 5 Mg/Gm 3.5 Gm Tube) 1 appln OPL BID OFE Stop: 02/03/23 20:59 Last Admin: 01/30/23 09:16 Dose: 1 appln Furosemide (Furosemide 80 Mg Tab) 80 mg PO BID OFE Stop: 02/23/23 20:59 Last Admin: 01/26/23 07:48 Dose: 80 mg Gabapentin (Gabapentin 300 Mg Cap) 300 mg PO QID OFE Stop: 03/01/23 12:59 Last Admin: 01/30/23 17:08 Dose: 300 mg Glucagon (Glucagon For Inj 1 Mg Vial) 1 mg SQ UD PRN; Protocol PRN Reason: Hypoglycemia Protocol Stop: 02/23/23 17:08 Glucose (Glucose 10 Tab/Tube) 4 - 8 tab PO UD PRN; Protocol PRN Reason: Hypoglycemia Treatment Stop: 02/23/23 17:08 Glucose (Glucose 40% Gel 15 Gm Tube) 15 - 30 gm PO UD PRN; Protocol PRN Reason: Hypoglycemia Protocol Stop: 02/23/23 17:08 Daptomycin 375 mg/ Syringe 7.5 mls @ 3.75 mls/min IV Q24H [facility]; Protocol Stop: 02/03/23 12:29 Last Admin: 01/30/23 13:15 Dose: 3.75 mls/min Insulin Aspart (Insulin Aspart Per Unit Charge) 0 units SC ACHS [facility]; Protocol Stop: 02/24/23 07:29 Last Admin: 01/30/23 17:12 Dose: 28 units Insulin Glargine (Lantus Per Unit Charge) 60 units SC BID [facility]; Protocol Stop: 02/25/23 08:59 Last Admin: 01/30/23 09:28 Dose: 60 units Levothyroxine Sodium (Levothyroxine Sodium 125 Mcg Tablet) 250 mcg PO DAILYBB [facility] Stop: 02/24/23 06:29 Last Admin: 01/30/23 06:27 Dose: 250 mcg Lidocaine (Lidocaine 5% 1 Patch) 1 patch TD HS [facility] Stop: 02/27/23 20:59 Last Admin: 01/29/23 21:34 Dose: 1 patch Magnesium Hydroxide (Magnesium Hydroxide Susp 30 Ml Udc) 30 ml PO Q12H PRN PRN Reason: Constipation Stop: 02/23/23 13:18 Last Admin: 01/28/23 09:20 Dose: 30 ml Magnesium Oxide (Magnesium Oxide 400 Mg Tab) 400 mg PO DAILY [facility] Stop: 02/24/23 08:59 Last Admin: 01/30/23 09:13 Dose: 400 mg Metolazone (Metolazone 2.5 Mg Tablet) 2.5 mg PO MoWe@0900 [facility] Stop: 02/25/23 08:59 Last Admin: 01/26/23 07:47 Dose: 2.5 mg Metoprolol Succinate (Metoprolol Succ 50mg Ext Rel Tab) 100 mg PO BID [facility] Stop: 02/23/23 20:59 Last Admin: 01/30/23 09:14 Dose: 100 mg Miconazole Nitrate (Miconazole Nitrate Powder 85 Gm) 1 appln TOP DAILY [facility] Stop: 02/24/23 08:59 Last Admin: 01/30/23 09:16 Dose: 1 appln Miscellaneous (Carbohydrates For Hypoglycemia ) 15 - 30 gm PO UD PRN PRN Reason: Hypoglycemia Protocol Stop: 02/23/23 17:08 Miscellaneous (Remove Lidoderm Patch) 1 each N/A DAILY [facility] Stop: 02/28/23 08:59 Last Admin: 01/30/23 09:16 Dose: 1 each Miscellaneous Information (Pharmacy Glycemic Mgmt Consult) 1 each N/A UD PRN PRN Reason: Consult Stop: 02/23/23 17:08 Morphine Sulfate (Morphine Sulfate 2 Mg/Ml Carp) 2 mg IV Q4H PRN PRN Reason: Severe Pain (Scale 7, 8, 9,10) Stop: 02/11/23 11:56 Multivitamins/Minerals (Cerovite Adv Formula Tab) 1 tab PO BID [facility] Stop: 02/23/23 20:59 Last Admin: 01/30/23 09:13 Dose: 1 tab Nystatin (Nystatin Powder 15gm Btl) 1 appln EXT BID [facility] Stop: 02/23/23 20:59 Last Admin: 01/30/23 09:16 Dose: 1 appln Oxycodone HCl (Oxycodone Hcl Ir 5 Mg Tab (Immediate Release)) 5 mg PO Q6H PRN PRN Reason: Pain Stop: 02/07/23 20:29 Last Admin: 01/30/23 14:15 Dose: 5 mg Pantoprazole Sodium (Pantoprazole 40 Mg Tab) 40 mg PO QAM OFE Stop: 02/24/23 08:59 Last Admin: 01/30/23 09:12 Dose: 40 mg Phenazopyridine HCl (Phenazopyridine Hcl 100 Mg Tab) 100 mg PO TID PRN PRN Reason: Dysuria Stop: 02/27/23 18:29 Last Admin: 01/30/23 09:13 Dose: 100 mg Polyethylene Glycol (Polyethylene (Miralax) 17 Gm Pack) 17 gm PO DAILY PRN PRN Reason: Constipation Stop: 02/23/23 13:18 Last Admin: 01/28/23 15:28 Dose: 17 gm Potassium Chloride (Potassium Chloride Crtab 20 Meq Tabcr) 40 meq PO MoWe@0900 [facility] Stop: 02/25/23 08:59 Last Admin: 01/25/23 21:07 Dose: 40 meq Potassium Chloride (Potassium Chloride Crtab 20 Meq Tabcr) 20 meq PO SuTuThFrSa@0900,2100 [facility] Stop: 02/23/23 20:59 Last Admin: 07/16/23 21:17 Dose: 20 meq Potassium Chloride (Potassium Chloride Crtab 20 Meq Tabcr) 20 meq PO MoWe@2100 [facility] Stop: 02/25/23 20:59 Last Admin: 01/25/23 21:09 Dose: 20 meq Sennosides (Senna 8.6 Mg Tab) 8.6 mg PO BID [facility] Stop: 02/23/23 20:59 Last Admin: 01/30/23 09:13 Dose: 8.6 mg Spironolactone (Spironolactone 25 Mg Tab) 25 mg PO DAILY [facility] Stop: 02/24/23 08:59 Last Admin: 01/26/23 07:49 Dose: 25 mg Vancomycin HCl (Vancomycin 25mg/Ml Fortified Oph Drops) 1 drops OPL QID [facility] Stop: 02/05/23 16:59 Last Admin: 01/30/23 17:13 Dose: 1 drops Vitamin D (Cholecalciferol 1,000 Units 25 Mcg Tab) 2,000 units PO DAILY [facility] Stop: 02/24/23 08:59 Last Admin: 01/30/23 09:12 Dose: 2,000 units
[2023-01-30] MEDS ORDERED: CEFEPIME 2,000 MG in SYRINGE 0 ML IV SCH ×2 (17:45→18:00)
[2023-01-30] MEDS: LIDOCAINE 5% 1 PATCH TD SCH (20:42)
[2023-01-30] MEDS: FUROSEMIDE 80 MG TAB PO SCH (20:44)
[2023-01-30] MEDS: POTASSIUM CHLORIDE CRTAB 20 MEQ TABCR PO SCH (20:46)
[2023-01-31] MEDS: Cefepime 2,000 MG Extended Infusion IV SCH ×4 (00:58→23:37)
[2023-01-31] MEDS: ACETAMINOPHEN 325 MG TAB PO PRN ×2 (01:11→17:45)
[2023-01-31] MEDS: LEVOTHYROXINE SODIUM 125 MCG TABLET PO SCH (05:41)
[2023-01-31 06:48] LABS: BUN Creatinine Ratio 33.5 (10-20); Calcium 10.3 mg/dl (8.6-10.3); Creatinine Clr Calc Pharmacy 57.7 ml/min; Est GFR (African American) 49.5 ml/min; Est GFR (Non-African American) 42.7 ml/min
[2023-01-31 07:19] LABS: Basophils # (auto) 0.07 K/uL (0-0.2); Basophils % (auto) 0.7 %; Eosinophils # (auto) 0.26 K/uL (0-0.50); Eosinophils % (auto) 2.5 %; Hematocrit (blood only) 40.2 % (42.0-52.0); Immature Granulocytes # (auto) 0.09 K/uL (0.01-0.20); Immature Granulocytes % (auto) 0.9 %; Lymphocytes # (auto) 1.55 K/uL (1.2-3.4); Mean Corpuscular Hemoglobin 27.7 pg (25.0-34.0); Mean Corpuscular Hgb Conc 32.3 g/dL (32.0-36.0); Mean Corpuscular Volume 85.7 fL (80.0-100.0); Mean Platelet Volume 11.5 fL (9.4-12.4); Monocytes % (auto) 8.7 %; Neutrophils # (auto) 7.45 K/uL (1.40-6.50); Neutrophils % (auto) 72.2 %; Platelet Count 210 K/uL (130-400); RDW Coefficient of Variation 15.6 % (11.5-14.5); RDW Standard Deviation 47.3 fL (36.4-46.3); Red Blood Count 4.69 M/uL (4.70-6.10); White Blood Count 10.32 K/ul (4.8-10.8)
[2023-01-31] MEDS: INSULIN ASPART PER UNIT CHARGE SC SCH ×4 (10:03→20:51)
[2023-01-31] MEDS: LANTUS PER UNIT CHARGE SC SCH ×2 (10:03→20:47)
[2023-01-31] MEDS: GABAPENTIN 300 MG CAP PO SCH ×4 (10:32→20:48)
[2023-01-31] MEDS: FUROSEMIDE 80 MG TAB PO SCH ×2 (10:32→20:51)
[2023-01-31] MEDS: APIXABAN 5 MG TABLET PO SCH ×2 (10:32→20:50)
[2023-01-31] MEDS: SENNA 8.6 MG TAB PO SCH ×2 (10:32→20:50)
[2023-01-31] MEDS: CEROVITE ADV FORMULA TAB PO SCH ×2 (10:32→20:49)
[2023-01-31] MEDS: SPIRONOLACTONE 25 MG TAB PO SCH (10:32)
[2023-01-31] MEDS: POTASSIUM CHLORIDE CRTAB 20 MEQ TABCR PO SCH ×2 (10:32→20:54)
[2023-01-31] MEDS: ARTIFICIAL TEARS OP SCH ×4 (10:33→20:45)
[2023-01-31] MEDS: ERYTHROMYCIN OP OINT 5 MG/GM 3.5 GM TUBE OPL SCH ×2 (10:33→20:46)
[2023-01-31] MEDS: MENTHOL-ZINC OXIDE 360 APPLN/120 GM TUBE EXT SCH ×2 (10:33→20:46)
[2023-01-31] MEDS: VANCOMYCIN 25MG/ML FORTIFIED OPH DROPS OPL SCH ×4 (10:33→20:54)
[2023-01-31] MEDS: NYSTATIN POWDER 15GM BTL EXT SCH ×2 (10:33→20:46)
[2023-01-31] MEDS: MICONAZOLE NITRATE POWDER 85 GM TOP SCH (10:33)
[2023-01-31] MEDS: CHOLECALCIFEROL 1,000 UNITS 25 MCG TAB PO SCH (11:40)
[2023-01-31] MEDS: DULoxetine HCL 60 MG CAP PO SCH (11:41)
[2023-01-31] MEDS: buPROPion XL 300 MG TABCR PO SCH (11:41)
[2023-01-31] MEDS: MAGNESIUM OXIDE 400 MG TAB PO SCH (11:41)
[2023-01-31] MEDS: PANTOprazole 40 MG TAB PO SCH (11:41)
[2023-01-31] MEDS: ASPIRIN 81 MG ECTAB PO SCH (11:41)
[2023-01-31] MEDS: allopurinoL 300 MG TAB PO SCH (11:41)
[2023-01-31] MEDS: METOPROLOL SUCC 50MG EXT REL TAB PO SCH ×2 (11:41→20:53)
[2023-01-31] MEDS: DAPTOmycin 375 MG in SYRINGE 0 ML IV SCH (13:37)
--- NOTE | 2023-01-31 15:09 | Nephrology Progress Note ---
Date of Service January 31, 2023 Assessment & Plan Admission and Anticipated Discharge Date Admission Date: January 24, 2023 Subjective Assessment & Plan (1) ALMA ROSA (acute kidney injury): 2 Hyponatremia-- Plan: slowly improving nonoliguric acute kidney injury on CKD 3A with baseline creatinine of 1.2-1.3 for an estimated GFR of about 55 mL/min. Renal function plateau'd at 2.2 creat, then drifted down down to plateau at 1.6 past 48 hrs. Suspicious for contrast-induced nephropathy given timing of change in function and its abruptness, unremarkable renal ultrasound, stable hemodynamics. Repeat UACM w/ bagley noted. mild hyponatremia emerging Creat seems to be slowly coming down. na better today. continue bagley as needed; from neph standpoint could d/c Daily basic metabolic panel Continue lasix 80 mg po bid and potassium supplements and spironolactone continue to hold metolazone one more day if possible Subjective no interval events clinically. pain reasonably controlled this am. good appetite; no sob. urine Somewhat lower yesterday at 750ml. today is better with 600 since 7 AM On RA and vitals signs fine Review of Systems Review of Systems: All systems reviewed & are unremarkable except as noted in Subjective Physical Exam Constitutional: well developed, well nourished, + obese, + frail appearing and cooperative; no acute distress Eyes: EOM intact bilaterally ENMT: Ears: + hearing impairment; no external ear abnormality Nose: no external nose abnormality Mouth: + dry oral mucous membranes and + edentulous Neck: no nuchal rigidity Respiratory: normal respiratory effort Auscultation: + diminished lung sounds and + crackles (bibasilar) Cardiovascular: Rate/Rhythm: regular rate and regular rhythm Gastrointestinal (Abdomen): Inspection/Auscultation: normal bowel sounds Percussion/Palpation: abdomen soft; abdomen nontender Musculoskeletal: Extremities: 1+ edema Skin: no rashes, warm and dry Trauma: + evidence of skin trauma Results & Data Vital Signs (Past 12 Hours) Vital Signs Temp Pulse Pulse Resp BP BP Pulse Ox 01/31/23 08:00 72 01/31/23 12:08 36.7 C 82 18 135/74 92 01/31/23 08:56 36.6 C 70 18 119/65 96 01/31/23 03:46 36.6 C 62 16 108/64 93 O2 Del Method 01/31/23 08:00 01/31/23 12:08 Room Air 01/31/23 08:56 Room Air 01/31/23 03:46 Room Air
--- NOTE | 2023-01-31 15:18 | Discharge Summary ---
Date of Service January 31, 2023 Admission HPI Per Admitting Provider Mr. Andujar is a 72 year old male who is a resident of [facility] with a complex and extensive PMH including COPD (supplemental home O2), CAD, tachybrady syndrome s/p PM, CKD 3, IDDM2 with peripheral neuropathy, pAF (On Eliquis), morbid obesity, combined CHF, pHTN, chronic venous ulcers, HTN, HLD, SALAS (CPAP HS), depression, hypothyroidism, depression, ocular MRSA, and recurrent falls presents today with confusion. On arrival. Head CT negative, Face CT performed and negative for orbital abnormalities. CXR shows mild cardiomegaly and congestion. Urinalysis positive for UTI. Previous urine culture 07/2020 positive for enterococcus faecalis. He has a history of venous insufficiency and underwent right GSV ablation in the past. He has been experiencing recurrent devi ulcers, all venous wounds curre ntly healed. Also has chronic lower extremity edema and heaviness Hip/pelvic x-ray: No fracture or dislocation within the pelvis or hips. Follows with wound clinic for management of venous ulcers and blisters. No leukocytosis, creatinine 1.34; baseline 1.2-1.3. Last ECHO: 09/04: EF 50%, mild concentric LVH. Pt denies SIMPSON, dizziness, auditory changes, abdominal pain or tenderness, N/V/D, fevers or chills, appetite changes, bowel or bladder changes. Pt does appear on examination to be returning to his mental status baseline with some fluid resuscitation and will be started on IV abx. Patient will be admitted for further evaluation and management. Please see A/P for further details. Discharge Exam Sitting on a chair without any acute distress Constitutional well developed, well nourished, + ill appearing and + morbidly obese Eyes PERRL, conjunctivae normal, anicteric sclerae ENMT external ear and nose normal, oropharynx normal Neck trachea midline, no thyromegaly Respiratory no respiratory distress Auscultation: + diminished lung sounds and + crackles (Bibasilar crackles) Cardiovascular Rate/Rhythm: regular rate and regular rhythm; not tachycardic Heart Sounds: normal S1 and normal S2; no murmur Extremities: + edema (Trace to 1+ edema bilaterally) Gastrointestinal (Abdomen) Inspection/Auscultation: + abdomen distended and normal bowel sounds Percussion/Palpation: abdomen soft; abdomen nontender Lymphatic no cervical or axillary lymphadenopathy Discharge Data Allergies Allergy/AdvReac Type Severity Reaction Status Date / Time No Known Allergies Allergy Verified 01/21/23 13:06 Consultations 01/24/23 14:58 ED Decision to Admit Stat 01/27/23 11:27 Consult Nephrology Routine 01/27/23 12:04 Consult Infectious Diseases Routine Ordered Studies 01/24/23 09:59 CT head/brain wo con Stat 01/24/23 10:00 CT facial bones w con Stat 01/25/23 16:36 CT hip LT wo con Routine 01/26/23 10:12 US Renal Bladder [US renal/blad retro comp] Routine 01/29/23 11:31 CT lumbar spine wo con Routine Hospital Course (1) UTI (urinary tract infection): (2) Altered mental status: (3) Wound, open, finger: (4) Recurrent falls: (5) Persistent atrial fibrillation: (6) Diabetic peripheral neuropathy associated with type 2 diabetes mellitus: (7) COPD, moderate: (8) Pacemaker: (9) SALAS (obstructive sleep apnea): (10) Venous ulcers of both lower extremities: (11) Infection of eye due to methicillin resistant Staphylococcus aureus (MRSA): Plan Patient is a 72 yr old male presents from [facility] with AMS. UTI on urinalysis. 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 Pt follows with [facility] and his last appointment was on 01/09; noted five pound weight gain over the past two weeks. No leukocytosis; started on Unasyn in ED; await cultures and adjust. 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 Acute metabolic encephalopathy UTI --CT head:No acute intracranial abnormality. -Urine culture growing Pseudomonas, Stenotrophomonas -Blood cultures: 07/16: Coagulase-negative staph not lugdunensis--likely contaminant Has been on cefepime, added Levaquin Mental status back to baseline Appreciate ID input and recommendation Levaquin can be stopped Will continue cefepime for now ALMA ROSA on CKD III Contrast-induced nephropathy -Renal USD:No hydronephrosis. Mild bilateral renal cortical thinning. Cr 2.18>1.9>1.6 Hold diuretics Avoid nephrotoxic agents as able Received IV fluids Bladder scan as needed Appreciate nephrology input and recommendation Continue to monitor Renal function slowly improving and keep improving Finger wound infection Finger wound culture growing MRSA, group B beta strep Added Daptomycin, continue cefepime as above Continue wound care And adjust medications based on ID recommendations Daptomycin can be discontinued and doxycycline will be added to finish the course up to 25th Left hip pain/Back Pain Mechanical fall --Hip X ray:No fracture or dislocation within the pelvis or hips. --Hip CT:Degenerative changes are seen without evidence of acute fracture. PT OT, fall precautions Pain is controlled Obtain lumbar CT Combined systolic/diastolic CHF: Follows with [email or web address]; last appt --CXR:Cardiomegaly and mild congestive change. This is similar to the prior study. Monitor volume status, renal function Hold Metolazone, Lasix, Spironolactone due to ALMA ROSA Will need to restart Lasix when the kidney function improves Venous ulcers: Numerous right foot and left hand 4th and 5th digits ulcers Follows with [email or web address] Home; last appt 01/14 OPT records indicate to keep covered with Xeroform Continue Waffle boots Continue wound care Persistent atrial fibrillation: Pacemaker Continue Digoxin, Metoprolol, Eliquis COPD: SALAS: Continue CPAP at bedtime Hypothyroidism: Continue Levothyroxine Insulin-dependent diabetes mellitus with peripheral neuropathy: Diabetic Foot ulcers: Follows with wound clinic HbA1c 10.4 Continue insulin while hospitalized Monitor BGs HLD: Continue Atorvastatin Depression: PTSD: Continue Buspar Gout: Continue Allopurinol Code Status Full Code DVT Px: Eliquis Disposition PT OT prior to discharge Discharge Plan Discharge Items Reason For Visit: CONFUSION Follow-up/Referrals: Keith Rose DO [Primary Care Provider] - Medications and DC Order Prescriptions: No Action Novolin R FlexPen 100 unit/mL (3 mL) Insulin Pen 0 - 30 sliding scale dose SUBCUT ACHS Rx Instructions: 10-150 = 0 UNITS; 151-199 = 5 UNITS; 200-250 = 7 UNITS; 251-300 = 10 UNITS; 301-350 = 13 UNITS; 351-400 = 15 UNITS; 400+ = 30 UNITS AND CALL PROVIDER insulin glargine 100 unit/mL Solution 70 unit SUBCUT BID spironolactone 25 mg tablet 25 mg PO DAILY PreserVision AREDS-2 250-90-40-1 mg Capsule 1 tab PO BID multivitamin with minerals Tablet 1 tab PO DAILY furosemide 80 mg Tablet 80 mg PO BID Refresh Classic (PF) 1.4-0.6 % Dropperette 1 drp OPB QID nitrofurantoin monohyd/m-cryst [Macrobid] 100 mg capsule 100 mg PO BID Qty: 20 0RF Rx Instructions: must administer with a meal/food. Start Date 01/16/23 - End Date 01/26/23 metolazone 2.5 mg Tablet 2.5 mg PO .[id number] Rx Instructions: Thu/Thu miconazole nitrate [Desenex] 2 % Aerosol Powder 1 spray TOPICAL DAILY Iodosorb 0.9 % Gel 40 g TOPICAL DAILY potassium chloride 20 mEq Tablet,Er Particles/Crystals See Rx Instructions .ROUTE .COMPLEX Rx Instructions: Take 40meq in the morning and 20meq in the evening on Thu/Thu menthol-zinc oxide [Calmoseptine] 0.44-20.6 % Ointment 1 applic TOPICAL BID vancomycin See Rx Instructions .ROUTE .COMPLEX Rx Instructions: Vancomycin Fortified 10mg/ml: Instill 1 drop into left eye four times daily. Start Date 01/20/23 - No end date on SEP tramadol 50 mg Tablet 100 mg PO .Q4-6H PRN (Reason: Pain) potassium chloride 20 mEq tablet,ER particles/crystals 20 meq PO .[id number] Rx Instructions: //Thu/Sat/Sun Novolin R Regular U100 Insulin 100 unit/mL solution 22 unit subcut TIDM sennosides [senna] 8.6 mg Tablet 8.6 mg PO BID acetaminophen [Tylenol] 325 mg Tablet 650 mg PO Q4 PRN (Reason: Fever Or Pain) magnesium oxide 420 mg Tablet 420 mg PO DAILY aspirin 81 mg Tablet,Delayed Release (Dr/Ec) 81 mg PO DAILY erythromycin 5 mg/gram (0.5 %) ointment 1 applic OPL BID Rx Instructions: 1/2 inch to 1 inch ribbon to left eye twice daily. Start Date 01/02/23 - No end date on SEP from [facility] levothyroxine 125 mcg Tablet 250 mcg PO DAILYBB lidocaine 5 % Adhesive Patch,Medicated 1 patch TOPICAL DAILY Rx Instructions: leave on most painful area for up to 12 hrs, then take off nitroglycerin [Nitrostat] 0.4 mg Tablet, Sublingual 0.4 mg sublingual DIRECTED PRN (Reason: Chest Pain) digoxin 125 mcg (0.125 mg) Tablet 125 mcg PO DAILY Rx Instructions: GIVE DAILY AT 1600 nystatin 100,000 unit/gram Powder 1 applic TOPICAL BID epinephrine 0.3 mg/0.3 mL Auto-Injector 0.3 mg IM DIRECTED PRN (Reason: Allergic Reaction) albuterol sulfate 90 mcg/actuation Hfa Aerosol Inhaler 2 puff INHALATION Q4 PRN (Reason: Shortness Of Breath Or Wheezing) Naphcon-A 0.025-0.3 % Drops 2 drp OPHTHALMIC (EYE) Q6 PRN (Reason: Eye Irritation) loratadine 10 mg Tablet 20 mg PO DAILY PRN (Reason: .allergies) Rx Instructions: two tablets daily, as needed for allergies, per [facility] duloxetine 60 mg capsule,delayed release(DR/EC) 60 mg PO DAILY cholecalciferol (vitamin D3) [Vitamin D3] 25 mcg (1,000 unit) Tablet 50 mcg PO DAILY apixaban 5 mg Tablet 5 mg PO Q12 atorvastatin 10 mg tablet 10 mg PO HS gabapentin 300 mg capsule 300 mg PO QID omeprazole 20 mg capsule,delayed release(DR/EC) 20 mg PO QAM allopurinol 300 mg tablet 300 mg PO DAILY metoprolol succinate 50 mg Tablet Extended Release 24 Hr 100 mg PO BID Qty: 60 0RF bupropion HCl 300 mg Tablet Extended Release 24 Hr 300 mg PO QAM Admission Data Admit Date/Time: 01/24/23 13:19 Attending Provider: Mariah Vigil Admit Provider: Marina Freeman Primary Care Provider: Keith Rose Other Providers: Marina Freeman ; [place] [place] ; Blanca Barlow [facility] ; Cristal Merritt ; Silvio Luz ; Alta Vasquez ; Abdelrahman Ledbetter I. ; Earnest Gregory II ; Khadijah Dukes ; Jcarlos Jin ; Bob Guthrie ; Yany Perez ; Dae Leone
--- NOTE | 2023-01-31 15:26 | Hospitalist Progress Note ---
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 UTI on urinalysis. 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 Pt follows with [facility] and his last appointment was on 01/09; noted five pound weight gain over the past two weeks. No leukocytosis; started on Unasyn in ED; await cultures and adjust. 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 Acute metabolic encephalopathy UTI --CT head:No acute intracranial abnormality. -Urine culture growing Pseudomonas, Stenotrophomonas -Blood cultures: 07/16: Coagulase-negative staph not lugdunensis--likely contaminant Has been on cefepime, added Levaquin Mental status back to baseline Appreciate ID input and recommendation Levaquin can be stopped Will continue cefepime for now Clinically much better-remains weak but no more encephalopathic ALMA ROSA on CKD III Contrast-induced nephropathy -Renal USD:No hydronephrosis. Mild bilateral renal cortical thinning. Cr 2.18>1.9>1.6 Hold diuretics Avoid nephrotoxic agents as able Received IV fluids Bladder scan as needed Appreciate nephrology input and recommendation Continue to monitor Renal function slowly improving and keep improving Kidney function has been improving and the patient is waiting to go to rehab Finger wound infection Finger wound culture growing MRSA, group B beta strep Added Daptomycin, continue cefepime as above Continue wound care And adjust medications based on ID recommendations Daptomycin can be discontinued and doxycycline will be added to finish the course up to 25th Left hip pain/Back Pain Mechanical fall --Hip X ray:No fracture or dislocation within the pelvis or hips. --Hip CT:Degenerative changes are seen without evidence of acute fracture. PT OT, fall precautions Pain is controlled Obtain lumbar CT-intramuscular hemorrhage within the portions of the left psoas, iliopsoas and iliac us muscle. Will get CT of the abdomen and pelvis to evaluate more bleeding as the patient is still having symptoms of pain involving the left thigh Combined systolic/diastolic CHF: Follows with [facility]; last appt --CXR:Cardiomegaly and mild congestive change. This is similar to the prior kendra dy. Monitor volume status, renal function Hold Metolazone, Lasix, Spironolactone due to ALMA ROSA Will need to restart Lasix when the kidney function improves Venous ulcers: Numerous right foot and left hand 4th and 5th digits ulcers Follows with [facility] at Home; last appt 01/14 OPT records indicate to keep covered with Xeroform Continue Waffle boots Continue wound care Persistent atrial fibrillation: Pacemaker Continue Digoxin, Metoprolol, Eliquis COPD: SALAS: Continue CPAP at bedtime Hypothyroidism: Continue Levothyroxine Insulin-dependent diabetes mellitus with peripheral neuropathy: Diabetic Foot ulcers: Follows with wound clinic HbA1c 10.4 Continue insulin while hospitalized Monitor BGs HLD: Continue Atorvastatin Depression: PTSD: Continue Buspar Gout: Continue Allopurinol Code Status Full Code DVT Px: Eliquis Disposition PT OT prior to discharge Admission and Anticipated Discharge Date Admission Date: January 24, 2023 Subjective 01/30/2023 The patient was seen and examined in medical telemetry unit He has been stable and denies any significant symptoms Denies any fever and or chills, any hand pain or increasing swelling or redness, any shortness of breath or palpitation 01/31/2023 The patient was seen and examined in medical telemetry unit He has been stable and denies any significant symptoms Remains generally weak and lethargy Review of Systems Review of Systems: All systems reviewed and are unremarkable except as noted below Physical Exam Physical Exam: Sitting on a chair without any acute distress Constitutional: well developed, well nourished, + ill appearing and + morbidly obese Eyes: PERRL, conjunctivae normal, anicteric sclerae ENMT: external ear and nose normal, oropharynx normal Neck: trachea midline, no thyromegaly Respiratory: no respiratory distress Auscultation: + diminished lung sounds and + crackles (Bibasilar crackles) Cardiovascular: Rate/Rhythm: regular rate and regular rhythm; not tachycardic Heart Sounds: normal S1 and normal S2; no murmur Extremities: + edema (Trace to 1+ edema bilaterally) Gastrointestinal (Abdomen): Inspection/Auscultation: + abdomen distended and normal bowel sounds Percussion/Palpation: abdomen soft; abdomen nontender Musculoskeletal: No acute arthritis involving any of the joint Neurologic: .Alert and awake. Generally very weak and lethargy Lymphatic: no cervical or axillary lymphadenopathy Results & Data Results & Data Vital Signs (Past 12 Hours) Vital Signs Temp Pulse Pulse Resp BP BP Pulse Ox 01/31/23 08:00 72 01/31/23 12:08 36.7 C 82 18 135/74 92 01/31/23 08:56 36.6 C 70 18 119/65 96 01/31/23 03:46 36.6 C 62 16 108/64 93 O2 Del Method 01/31/23 08:00 01/31/23 12:08 Room Air 01/31/23 08:56 Room Air 01/31/23 03:46 Room Air Laboratory Results Short CBC 01/31/23 Range/Units 06:16 WBC 10.32 (4.8-10.8) K/ul Hgb 13.0 L (14.0-18.0) g/dl Hct 40.2 L (42.0-52.0) % Plt Count 210 (130-400) K/uL BMP 01/31/23 06:16 Sodium 135 L Potassium 4.0 Chloride 100 Carbon Dioxide 27 BUN 54 H Creatinine 1.61 H Glucose 120 H Calcium 10.3 Medications Administered Current Inpatient Medications Acetaminophen (Acetaminophen 325 Mg Tab) 650 mg PO Q4H PRN PRN Reason: Pain or Fever Stop: 02/23/23 13:18 Last Admin: 01/31/23 01:11 Dose: 650 mg Al Hydrox/Mg Hydrox/Simethicone (Aluminum/Magnesium Susp 30 Ml Udc) 15 ml PO Q4H PRN PRN Reason: Dyspepsia Stop: 02/23/23 13:18 Allopurinol (Allopurinol 300 Mg Tab) 300 mg PO DAILY OFE Stop: 02/24/23 08:59 Last Admin: 01/31/23 11:41 Dose: 300 mg Apixaban (Apixaban 5 Mg Tablet) 5 mg PO Q12 OFE Stop: 02/23/23 20:59 Last Admin: 01/31/23 10:32 Dose: 5 mg Artificial Tears (Artificial Tears) 1 drops OP QID OFE Stop: 02/23/23 16:59 Last Admin: 01/31/23 13:37 Dose: 1 drops Aspirin (Aspirin 81 Mg Ectab) 81 mg PO DAILY OFE Stop: 02/24/23 08:59 Last Admin: 01/31/23 11:41 Dose: 81 mg Atorvastatin Calcium (Atorvastatin 10 Mg Tab) 10 mg PO HS OFE Stop: 02/23/23 20:59 Last Admin: 01/26/23 20:51 Dose: 10 mg Bupropion HCl (Bupropion Xl 300 Mg Tabcr) 300 mg PO QAM OFE Stop: 02/24/23 08:59 Last Admin: 01/31/23 11:41 Dose: 300 mg Calamine/Phenol (Menthol-Zinc Oxide 360 Appln/120 Gm Tube) 1 appln EXT BID OFE Stop: 02/23/23 20:59 Last Admin: 01/31/23 10:33 Dose: 1 appln Dextrose (Dextrose 50% 50 Ml Syringe) 25 - 50 ml IV UD PRN; Protocol PRN Reason: Hypoglycemia Protocol Stop: 02/23/23 17:08 Digoxin (Digoxin 0.125 Mg Tab) 0.125 mg PO DAILY@1600 OFE Stop: 02/24/23 15:59 Last Admin: 01/30/23 16:09 Dose: 0.125 mg Duloxetine HCl (Duloxetine Hcl 60 Mg Cap) 60 mg PO DAILY OFE Stop: 02/24/23 08:59 Last Admin: 01/31/23 11:41 Dose: 60 mg Erythromycin (Erythromycin Op Oint 5 Mg/Gm 3.5 Gm Tube) 1 appln OPL BID OFE Stop: 02/03/23 20:59 Last Admin: 01/31/23 10:33 Dose: 1 appln Furosemide (Furosemide 80 Mg Tab) 80 mg PO BID OFE Stop: 02/23/23 20:59 Last Admin: 01/31/23 10:32 Dose: 80 mg Gabapentin (Gabapentin 300 Mg Cap) 300 mg PO QID OFE Stop: 03/01/23 12:59 Last Admin: 01/31/23 13:38 Dose: 300 mg Glucagon (Glucagon For Inj 1 Mg Vial) 1 mg SQ UD PRN; Protocol PRN Reason: Hypoglycemia Protocol Stop: 02/23/23 17:08 Glucose (Glucose 10 Tab/Tube) 4 - 8 tab PO UD PRN; Protocol PRN Reason: Hypoglycemia Treatment Stop: 02/23/23 17:08 Glucose (Glucose 40% Gel 15 Gm Tube) 15 - 30 gm PO UD PRN; Protocol PRN Reason: Hypoglycemia Protocol Stop: 02/23/23 17:08 Daptomycin 375 mg/ Syringe 7.5 mls @ 3.75 mls/min IV Q24H [facility]; Protocol Stop: 02/03/23 12:29 Last Admin: 01/31/23 13:37 Dose: 3.75 mls/min Cefepime HCl 2,000 mg/ (Dextrose) 120 mls @ 40 mls/hr IV Q8H [facility]; Protocol Stop: 02/03/23 19:00 Last Infusion: 01/31/23 13:37 Dose: Infused Insulin Aspart (Insulin Aspart Per Unit Charge) 0 units SC ACHS [facility]; Protocol Stop: 02/24/23 07:29 Last Admin: 01/31/23 12:29 Dose: 32 units Insulin Glargine (Lantus Per Unit Charge) 60 units SC BID [facility]; Protocol Stop: 02/25/23 08:59 Last Admin: 01/31/23 10:03 Dose: 60 units Levothyroxine Sodium (Levothyroxine Sodium 125 Mcg Tablet) 250 mcg PO DAILYBB [facility] Stop: 02/24/23 06:29 Last Admin: 01/31/23 05:41 Dose: 250 mcg Lidocaine (Lidocaine 5% 1 Patch) 1 patch TD HS [facility] Stop: 02/27/23 20:59 Last Admin: 01/30/23 20:42 Dose: 1 patch Magnesium Hydroxide (Magnesium Hydroxide Susp 30 Ml Udc) 30 ml PO Q12H PRN PRN Reason: Constipation Stop: 02/23/23 13:18 Last Admin: 01/28/23 09:20 Dose: 30 ml Magnesium Oxide (Magnesium Oxide 400 Mg Tab) 400 mg PO DAILY [facility] Stop: 02/24/23 08:59 Last Admin: 01/31/23 11:41 Dose: 400 mg Metolazone (Metolazone 2.5 Mg Tablet) 2.5 mg PO MoWe@0900 [facility] Stop: 02/25/23 08:59 Last Admin: 01/26/23 07:47 Dose: 2.5 mg Metoprolol Succinate (Metoprolol Succ 50mg Ext Rel Tab) 100 mg PO BID OFE Stop: 02/23/23 20:59 Last Admin: 01/31/23 11:41 Dose: 100 mg Miconazole Nitrate (Miconazole Nitrate Powder 85 Gm) 1 appln TOP DAILY OFE Stop: 02/24/23 08:59 Last Admin: 01/31/23 10:33 Dose: 1 appln Miscellaneous (Carbohydrates For Hypoglycemia ) 15 - 30 gm PO UD PRN PRN Reason: Hypoglycemia Protocol Stop: 02/23/23 17:08 Miscellaneous (Remove Lidoderm Patch) 1 each N/A DAILY OFE Stop: 02/28/23 08:59 Last Admin: 01/31/23 11:41 Dose: 1 each Miscellaneous Information (Pharmacy Glycemic Mgmt Consult) 1 each N/A UD PRN PRN Reason: Consult Stop: 02/23/23 17:08 Morphine Sulfate (Morphine Sulfate 2 Mg/Ml Carp) 2 mg IV Q4H PRN PRN Reason: Severe Pain (Scale 7, 8, 9,10) Stop: 02/11/23 11:56 Multivitamins/Minerals (Cerovite Adv Formula Tab) 1 tab PO BID OFE Stop: 02/23/23 20:59 Last Admin: 01/31/23 10:32 Dose: 1 tab Nystatin (Nystatin Powder 15gm Btl) 1 appln EXT BID OFE Stop: 02/23/23 20:59 Last Admin: 01/31/23 10:33 Dose: 1 appln Oxycodone HCl (Oxycodone Hcl Ir 5 Mg Tab (Immediate Release)) 5 mg PO Q6H PRN PRN Reason: Pain Stop: 02/07/23 20:29 Last Admin: 01/30/23 21:57 Dose: 5 mg Pantoprazole Sodium (Pantoprazole 40 Mg Tab) 40 mg PO QAM OFE Stop: 02/24/23 08:59 Last Admin: 01/31/23 11:41 Dose: 40 mg Phenazopyridine HCl (Phenazopyridine Hcl 100 Mg Tab) 100 mg PO TID PRN PRN Reason: Dysuria Stop: 02/27/23 18:29 Last Admin: 01/30/23 09:13 Dose: 100 mg Polyethylene Glycol (Polyethylene (Miralax) 17 Gm Pack) 17 gm PO DAILY PRN PRN Reason: Constipation Stop: 02/23/23 13:18 Last Admin: 01/28/23 15:28 Dose: 17 gm Potassium Chloride (Potassium Chloride Crtab 20 Meq Tabcr) 40 meq PO MoWe@0900 [facility] Stop: 02/25/23 08:59 Last Admin: 01/25/23 21:07 Dose: 40 meq Potassium Chloride (Potassium Chloride Crtab 20 Meq Tabcr) 20 meq PO SuTuThFrSa@0900,2100 [facility] Stop: 02/23/23 20:59 Last Admin: 01/31/23 10:32 Dose: 20 meq Potassium Chloride (Potassium Chloride Crtab 20 Meq Tabcr) 20 meq PO MoWe@2100 [facility] Stop: 02/25/23 20:59 Last Admin: 01/25/23 21:09 Dose: 20 meq Sennosides (Senna 8.6 Mg Tab) 8.6 mg PO BID [facility] Stop: 02/23/23 20:59 Last Admin: 01/31/23 10:32 Dose: 8.6 mg Spironolactone (Spironolactone 25 Mg Tab) 25 mg PO DAILY [facility] Stop: 02/24/23 08:59 Last Admin: 01/31/23 10:32 Dose: 25 mg Vancomycin HCl (Vancomycin 25mg/Ml Fortified Oph Drops) 1 drops OPL QID [facility] Stop: 02/05/23 16:59 Last Admin: 01/31/23 13:37 Dose: 1 drops Vitamin D (Cholecalciferol 1,000 Units 25 Mcg Tab) 2,000 units PO DAILY [facility] Stop: 02/24/23 08:59 Last Admin: 01/31/23 11:40 Dose: 2,000 units
--- NOTE | 2023-01-31 16:53 | CT Scan Report ---
CT OF THE ABDOMEN AND PELVIS WITHOUT CONTRAST CLINICAL HISTORY: r/o pelvic hemorrhage COMPARISON STUDY: Renal ultrasound January 26, 2023. Lumbar spine CT January 29, 2023. CT of the abdomen a nd pelvis November 09, 2022. CTA of the abdomen and pelvis with runoff December 30, 2022. TECHNIQUE: Axial images of the abdomen and pelvis were obtained without IV contrast. Images were revi ewed in the axial, sagittal, and coronal planes. Automated exposure control was utilized for the kendra dy. A dose lowering technique was utilized adhering to the principles of ALARA. FINDINGS: Pacer leads are partially imaged. There is cardiomegaly. Mildly enlarged mediastinal and hi lar lymph nodes as well as several pulmonary nodules within the lower lungs were shown on CT of November. These findings are benign. No pneumatosis, free air or portal venous gas is present. Evaluati on of the abdomen and pelvis is suboptimal on this unenhanced exam. A linear hypodensity within the r ight hepatic lobe on image 108 of 461 likely corresponds to portal vein thrombus shown on contrast en hanced CT of November 09, 2022. This is suboptimally assessed on this unenhanced exam. There are multipl e small gallstones within a suspected gallbladder remnant. There is no adjacent stranding. Splenomega ly is unchanged. There is slight nodularity of the liver surface. There is no hydronephrosis. There i s no evidence for a bowel obstruction. The appendix is normal. Note is made of mild asymmetric enlarg ement with a few hyperdense foci adjacent stranding within the left psoas, iliopsoas and iliacus musc les. This represents a small to moderate amount of intramuscular hemorrhage. No large retroperitoneal hematoma is present. There are no acute fractures. Valentine balloon within the bladder is present. IMPRESSION: 1. Small to moderate amount of intramuscular hemorrhage within the left psoas, iliopsoas and iliacus muscles. No large retroperitoneal hematoma. 2. Redemonstration of portal vein thrombus within the posterior segment of the right hepatic lobe. Th is is suboptimally assessed on this unenhanced exam. A follow-up nonemergent liver protocol CT is rec ommended to exclude the possibility of an underlying hepatic lesion. 3. No bowel obstruction. ACT 112: Negative or not required by law. Electronically signed by: Basil Hills M.D. 01/31/2023 4:51 PM
[2023-01-31] MEDS: DIGOXIN 0.125 MG TAB PO SCH (17:44)
[2023-01-31] MEDS: oxyCODONE HCL IR 5 MG TAB (IMMEDIATE RELEASE) PO PRN (20:47)
[2023-01-31] MEDS: LIDOCAINE 5% 1 PATCH TD SCH (20:49)
[2023-02-01] MEDS: ACETAMINOPHEN 325 MG TAB PO PRN ×3 (01:35→20:08)
[2023-02-01] MEDS: LEVOTHYROXINE SODIUM 125 MCG TABLET PO SCH (06:33)
[2023-02-01 07:03] LABS: Basophils # (auto) 0.04 K/uL (0-0.2); Basophils % (auto) 0.6 %; Eosinophils # (auto) 0.21 K/uL (0-0.50); Hematocrit (blood only) 37.9 % (42.0-52.0); Hemoglobin 12.2 g/dl (14.0-18.0); Immature Granulocytes # (auto) 0.06 K/uL (0.01-0.20); Immature Granulocytes % (auto) 0.8 %; Lymphocytes # (auto) 1.12 K/uL (1.2-3.4); Lymphocytes % (auto) 15.8 %; Mean Corpuscular Hgb Conc 32.2 g/dL (32.0-36.0); Mean Corpuscular Volume 86.9 fL (80.0-100.0); Mean Platelet Volume 10.7 fL (9.4-12.4); Monocytes % (auto) 9.9 %; Neutrophils # (auto) 4.95 K/uL (1.40-6.50); Neutrophils % (auto) 69.9 %; Platelet Count 164 K/uL (130-400); RDW Coefficient of Variation 15.6 % (11.5-14.5); Red Blood Count 4.36 M/uL (4.70-6.10); White Blood Count 7.08 K/ul (4.8-10.8)
[2023-02-01 07:34] LABS: BUN Creatinine Ratio 35.1 (10-20); Calcium 9.8 mg/dl (8.6-10.3); Creatinine Clr Calc Pharmacy 60.8 ml/min; Est GFR (African American) 52.2 ml/min; Potassium 3.4 mmol/L (3.5-5.1)
[2023-02-01] MEDS ORDERED: POTASSIUM CHLORIDE CRTAB 20 MEQ TABCR PO STA (08:08)
[2023-02-01] MEDS: FUROSEMIDE 80 MG TAB PO SCH ×2 (08:10→21:07)
[2023-02-01] MEDS: CHOLECALCIFEROL 1,000 UNITS 25 MCG TAB PO SCH (08:11)
[2023-02-01] MEDS: POTASSIUM CHLORIDE CRTAB 20 MEQ TABCR PO SCH ×2 (08:11→21:06)
[2023-02-01] MEDS: PANTOprazole 40 MG TAB PO SCH (08:11)
[2023-02-01] MEDS: SPIRONOLACTONE 25 MG TAB PO SCH (08:11)
[2023-02-01] MEDS: allopurinoL 300 MG TAB PO SCH (08:11)
[2023-02-01] MEDS: MAGNESIUM OXIDE 400 MG TAB PO SCH (08:11)
[2023-02-01] MEDS: ASPIRIN 81 MG ECTAB PO SCH (08:12)
[2023-02-01] MEDS: SENNA 8.6 MG TAB PO SCH ×2 (08:12→21:07)
[2023-02-01] MEDS: APIXABAN 5 MG TABLET PO SCH ×2 (08:12→21:06)
[2023-02-01] MEDS: buPROPion XL 300 MG TABCR PO SCH (08:12)
[2023-02-01] MEDS: CEROVITE ADV FORMULA TAB PO SCH ×2 (08:12→21:08)
[2023-02-01] MEDS: DULoxetine HCL 60 MG CAP PO SCH (08:12)
[2023-02-01] MEDS: METOPROLOL SUCC 50MG EXT REL TAB PO SCH ×2 (08:12→21:07)
[2023-02-01] MEDS: ERYTHROMYCIN OP OINT 5 MG/GM 3.5 GM TUBE OPL SCH ×2 (08:13→21:09)
[2023-02-01] MEDS: NYSTATIN POWDER 15GM BTL EXT SCH ×2 (08:13→21:06)
[2023-02-01] MEDS: GABAPENTIN 300 MG CAP PO SCH ×4 (08:13→21:08)
[2023-02-01] MEDS: Cefepime 2,000 MG Extended Infusion IV SCH ×2 (08:14→17:16)
[2023-02-01] MEDS: ARTIFICIAL TEARS OP SCH ×4 (08:14→21:05)
[2023-02-01] MEDS: MENTHOL-ZINC OXIDE 360 APPLN/120 GM TUBE EXT SCH ×2 (08:15→21:09)
[2023-02-01] MEDS: VANCOMYCIN 25MG/ML FORTIFIED OPH DROPS OPL SCH ×4 (08:15→21:05)
[2023-02-01] MEDS: MICONAZOLE NITRATE POWDER 85 GM TOP SCH (08:15)
[2023-02-01] MEDS: INSULIN ASPART PER UNIT CHARGE SC SCH ×4 (08:43→21:03)
[2023-02-01] MEDS: LANTUS PER UNIT CHARGE SC SCH ×2 (08:44→21:03)
--- NOTE | 2023-02-01 11:44 | Nephrology Progress Note ---
Date of Service February 01, 2023 Assessment & Plan Admission and Anticipated Discharge Date Admission Date: January 24, 2023 Subjective Assessment & Plan (1) ALMA ROSA (acute kidney injury): 2 Hyponatremia-- Plan: slowly improving nonoliguric acute kidney injury on CKD 3A with baseline creatinine of 1.2-1.3 for an estimated GFR of about 55 mL/min. Renal function plateau'd at 2.2 creat, then drifted down down to plateau at 1.6 past 48 hrs. Suspicious for contrast-induced nephropathy given timing of change in function and its abruptness, unremarkable renal ultrasound, stable hemodynamics. Repeat UACM w/ bagley noted. mild hyponatremia emerging Creat seems to be slowly coming down. na better today. continue bagley as needed Daily basic metabolic panel Continue lasix 80 mg po bid and potassium supplements and spironolactone continue to hold metolazone Subjective no interval events clinically. pain reasonably controlled this am. good ap petite; no sob. good urine output. On RA and vitals signs fine Review of Systems Review of Systems: All systems reviewed & are unremarkable except as noted in Subjective Physical Exam Constitutional: well developed, well nourished, + obese, + frail appearing and cooperative; no acute distress Eyes: EOM intact bilaterally ENMT: Ears: + hearing impairment; no external ear abnormality Nose: no external nose abnormality Mouth: + dry oral mucous membranes and + edentulous Neck: no nuchal rigidity Respiratory: normal respiratory effort Auscultation: + diminished lung sounds and + crackles (bibasilar) Cardiovascular: Rate/Rhythm: regular rate and regular rhythm Gastrointestinal (Abdomen): Inspection/Auscultation: normal bowel sounds Percussion/Palpation: abdomen soft; abdomen nontender Musculoskeletal: Extremities:1+ edema Skin: no rashes, warm and dry Trauma: + evidence of skin trauma Results & Data Vital Signs (Past 12 Hours) Vital Signs Temp Pulse Pulse Resp BP BP Pulse Ox 02/01/23 08:45 36.7 C 88 18 103/60 95 02/01/23 08:26 83 02/01/23 03:56 36.6 C 93 H 18 91/57 L 93 02/01/23 01:46 78 02/01/23 01:32 O2 Del Method 02/01/23 08:45 Room Air 02/01/23 08:26 02/01/23 03:56 Room Air 02/01/23 01:46 02/01/23 01:32 Room Air
[2023-02-01] MEDS: DAPTOmycin 375 MG in SYRINGE 0 ML IV SCH (14:03)
--- NOTE | 2023-02-01 15:12 | Hospitalist Progress Note ---
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 UTI on urinalysis. 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 Pt follows with [facility] and his last appointment was on 01/09; noted five pound weight gain over the past two weeks. No leukocytosis; started on Unasyn in ED; await cultures and adjust. 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 Acute metabolic encephalopathy UTI --CT head:No acute intracranial abnormality. -Urine culture growing Pseudomonas, Stenotrophomonas -Blood cultures: 07/16: Coagulase-negative staph not lugdunensis--likely contaminant Has been on cefepime, added Levaquin Mental status back to baseline Appreciate ID input and recommendation Levaquin can be stopped Will continue cefepime for now Clinically much better-remains weak but no more encephalopathic Remains stable without any significant symptoms except weakness ALMA ROSA on CKD III Contrast-induced nephropathy -Renal USD:No hydronephrosis. Mild bilateral renal cortical thinning. Cr 2.18>1.9>1.6 Hold diuretics Avoid nephrotoxic agents as able Received IV fluids Bladder scan as needed Appreciate nephrology input and recommendation Continue to monitor Renal function slowly improving and keep improving Kidney function has improved a lot and the patient is ready to be discharged Finger wound infection Finger wound culture growing MRSA, group B beta strep Added Daptomycin, continue cefepime as above Continue wound care And adjust medications based on ID recommendations Daptomycin can be discontinued and doxycycline will be added to finish the course up to 25th Left hip pain/Back Pain Mechanical fall --Hip X ray:No fracture or dislocation within the pelvis or hips. --Hip CT:Degenerative changes are seen without evidence of acute fracture. PT OT, fall precautions Pain is controlled Obtain lumbar CT-intramuscular hemorrhage within the portions of the left psoas, iliopsoas and iliac us muscle. Will get CT of the abdomen and pelvis to evaluate more bleeding as the patient is still having symptoms of pain involving the left thigh CT of the abdomen and pelvis did not show any sparing of hemorrhage Reassured about the pain in the left thigh which will improve eventually Combined systolic/diastolic CHF: Follows with [facility]; last appt --CXR:Cardiomegaly and mild congestive change. This is similar to the prior study. Monitor volume status, renal function Hold Metolazone, Lasix, Spironolactone due to ALMA ROSA Will need to restart Lasix when the kidney function improves Venous ulcers: Numerous right foot and left hand 4th and 5th digits ulcers Follows with [facility]; last appt 01/14 [facility] records indicate to keep covered with Xeroform Continue Waffle boots Continue wound care Persistent atrial fibrillation: Pacemaker Continue Digoxin, Metoprolol, Eliquis COPD: SALAS: Continue CPAP at bedtime Hypothyroidism: Continue Levothyroxine Insulin-dependent diabetes mellitus with peripheral neuropathy: Diabetic Foot ulcers: Follows with wound clinic HbA1c 10.4 Continue insulin while hospitalized Monitor BGs HLD: Continue Atorvastatin Depression: PTSD: Continue Buspar Gout: Continue Allopurinol Code Status Full Code DVT Px: Eliquis Disposition PT OT prior to discharge Will need to go to rehab Admission and Anticipated Discharge Date Admission Date: January 24, 2023 Subjective 01/30/2023 The patient was seen and examined in medical telemetry unit He has been stable and denies any significant symptoms Denies any fever and or chills, any hand pain or increasing swelling or redness, any shortness of breath or palpitation 01/31/2023 The patient was seen and examined in medical telemetry unit He has been stable and denies any significant symptoms Remains generally weak and lethargy 02/01/2023 The patient was seen and examined in medical telemetry unit He has been stable but he still has pain in the left thigh and buttock area CT scan of the abdomen and pelvis did not show any increasing hemorrhage in the muscles He has been weak and lethargic but denies any other significant symptoms Review of Systems Review of Systems: All systems reviewed and are unremarkable except as noted below Physical Exam Physical Exam: Sitting on a chair without any acute distress Constitutional: well developed, well nourished, + ill appearing and + morbidly obese Eyes: PERRL, conjunctivae normal, anicteric sclerae ENMT: external ear and nose normal, oropharynx normal Neck: trachea midline, no thyromegaly Respiratory: no respiratory distress Auscultation: + diminished lung sounds and + crackles (Bibasilar crackles) Cardiovascular: Rate/Rhythm: regular rate and regular rhythm; not tachycardic Heart Sounds: normal S1 and normal S2; no murmur Extremities: + edema (Trace to 1+ edema bilaterally) Gastrointestinal (Abdomen): Inspection/Auscultation: + abdomen distended and normal bowel sounds Percussion/Palpation: abdomen soft; abdomen nontender Musculoskeletal: No acute arthritis involving any joint Lymphatic: no cervical or axillary lymphadenopathy Results & Data Results & Data Vital Signs (Past 12 Hours) Vital Signs Temp Pulse Pulse Resp BP BP Pulse Ox 02/01/23 08:45 36.7 C 88 18 103/60 95 02/01/23 08:26 83 02/01/23 03:56 36.6 C 93 H 18 91/57 L 93 O2 Del Method 02/01/23 08:45 Room Air 02/01/23 08:26 02/01/23 03:56 Room Air Laboratory Results Short CBC 02/01/23 Range/Units 06:20 WBC 7.08 (4.8-10.8) K/ul Hgb 12.2 L (14.0-18.0) g/dl Hct 37.9 L (42.0-52.0) % Plt Count 164 (130-400) K/uL BMP 02/01/23 06:20 Sodium 137 Potassium 3.4 L Chloride 103 Carbon Dioxide 25 BUN 54 H Creatinine 1.54 H Glucose 166 H Calcium 9.8 Medications Administered Current Inpatient Medications Acetaminophen (Acetaminophen 325 Mg Tab) 650 mg PO Q4H PRN PRN Reason: Pain or Fever Stop: 02/23/23 13:18 Last Admin: 02/01/23 08:14 Dose: 650 mg Al Hydrox/Mg Hydrox/Simethicone (Aluminum/Magnesium Susp 30 Ml Udc) 15 ml PO Q4H PRN PRN Reason: Dyspepsia Stop: 02/23/23 13:18 Allopurinol (Allopurinol 300 Mg Tab) 300 mg PO DAILY OFE Stop: 02/24/23 08:59 Last Admin: 02/01/23 08:11 Dose: 300 mg Apixaban (Apixaban 5 Mg Tablet) 5 mg PO Q12 OFE Stop: 02/23/23 20:59 Last Admin: 02/01/23 08:12 Dose: 5 mg Artificial Tears (Artificial Tears) 1 drops OP QID OFE Stop: 02/23/23 16:59 Last Admin: 02/01/23 13:19 Dose: 1 drops Aspirin (Aspirin 81 Mg Ectab) 81 mg PO DAILY OFE Stop: 02/24/23 08:59 Last Admin: 02/01/23 08:12 Dose: 81 mg Atorvastatin Calcium (Atorvastatin 10 Mg Tab) 10 mg PO HS OFE Stop: 02/23/23 20:59 Last Admin: 01/26/23 20:51 Dose: 10 mg Bupropion HCl (Bupropion Xl 300 Mg Tabcr) 300 mg PO QAM OFE Stop: 02/24/23 08:59 Last Admin: 02/01/23 08:12 Dose: 300 mg Calamine/Phenol (Menthol-Zinc Oxide 360 Appln/120 Gm Tube) 1 appln EXT BID OFE Stop: 02/23/23 20:59 Last Admin: 02/01/23 08:15 Dose: 1 appln Dextrose (Dextrose 50% 50 Ml Syringe) 25 - 50 ml IV UD PRN; Protocol PRN Reason: Hypoglycemia Protocol Stop: 02/23/23 17:08 Digoxin (Digoxin 0.125 Mg Tab) 0.125 mg PO DAILY@1600 [facility] Stop: 02/24/23 15:59 Last Admin: 01/31/23 17:44 Dose: 0.125 mg Duloxetine HCl (Duloxetine Hcl 60 Mg Cap) 60 mg PO DAILY OFE Stop: 02/24/23 08:59 Last Admin: 02/01/23 08:12 Dose: 60 mg Erythromycin (Erythromycin Op Oint 5 Mg/Gm 3.5 Gm Tube) 1 appln OPL BID OFE Stop: 02/03/23 20:59 Last Admin: 02/01/23 08:13 Dose: 1 appln Furosemide (Furosemide 80 Mg Tab) 80 mg PO BID OFE Stop: 02/23/23 20:59 Last Admin: 02/01/23 08:10 Dose: 80 mg Gabapentin (Gabapentin 300 Mg Cap) 300 mg PO QID OFE Stop: 03/01/23 12:59 Last Admin: 02/01/23 13:20 Dose: 300 mg Glucagon (Glucagon For Inj 1 Mg Vial) 1 mg SQ UD PRN; Protocol PRN Reason: Hypoglycemia Protocol Stop: 02/23/23 17:08 Glucose (Glucose 10 Tab/Tube) 4 - 8 tab PO UD PRN; Protocol PRN Reason: Hypoglycemia Treatment Stop: 02/23/23 17:08 Glucose (Glucose 40% Gel 15 Gm Tube) 15 - 30 gm PO UD PRN; Protocol PRN Reason: Hypoglycemia Protocol Stop: 02/23/23 17:08 Daptomycin 375 mg/ Syringe 7.5 mls @ 3.75 mls/min IV Q24H OFE; Protocol Stop: 02/03/23 12:29 Last Admin: 02/01/23 14:03 Dose: 3.75 mls/min Cefepime HCl 2,000 mg/ (Dextrose) 120 mls @ 40 mls/hr IV Q8H OFE; Protocol Stop: 02/03/23 19:00 Last Infusion: 02/01/23 11:30 Dose: Infused Insulin Aspart (Insulin Aspart Per Unit Charge) 0 units SC DAILY@1130,1630,2100 [facility]; Protocol Stop: 03/03/23 16:29 Insulin Aspart (Insulin Aspart Per Unit Charge) 0 units SC DAILY@0730 [facility]; Protocol Stop: 03/04/23 07:29 Insulin Glargine (Lantus Per Unit Charge) 60 units SC BID [facility]; Protocol Stop: 02/25/23 08:59 Last Admin: 02/01/23 08:44 Dose: 60 units Levothyroxine Sodium (Levothyroxine Sodium 125 Mcg Tablet) 250 mcg PO DAILYBB [facility] Stop: 02/24/23 06:29 Last Admin: 02/01/23 06:33 Dose: 250 mcg Lidocaine (Lidocaine 5% 1 Patch) 1 patch TD HS [facility] Stop: 02/27/23 20:59 Last Admin: 01/31/23 20:49 Dose: 1 patch Magnesium Hydroxide (Magnesium Hydroxide Susp 30 Ml Udc) 30 ml PO Q12H PRN PRN Reason: Constipation Stop: 02/23/23 13:18 Last Admin: 01/28/23 09:20 Dose: 30 ml Magnesium Oxide (Magnesium Oxide 400 Mg Tab) 400 mg PO DAILY [facility] Stop: 02/24/23 08:59 Last Admin: 02/01/23 08:11 Dose: 400 mg Metolazone (Metolazone 2.5 Mg Tablet) 2.5 mg PO MoWe@0900 [facility] Stop: 02/25/23 08:59 Last Admin: 01/26/23 07:47 Dose: 2.5 mg Metoprolol Succinate (Metoprolol Succ 50mg Ext Rel Tab) 100 mg PO BID [facility] Stop: 02/23/23 20:59 Last Admin: 02/01/23 08:12 Dose: Not Given Miconazole Nitrate (Miconazole Nitrate Powder 85 Gm) 1 appln TOP DAILY [facility] Stop: 02/24/23 08:59 Last Admin: 02/01/23 08:15 Dose: 1 appln Miscellaneous (Carbohydrates For Hypoglycemia ) 15 - 30 gm PO UD PRN PRN Reason: Hypoglycemia Protocol Stop: 02/23/23 17:08 Miscellaneous (Remove Lidoderm Patch) 1 each N/A DAILY [facility] Stop: 02/28/23 08:59 Last Admin: 02/01/23 08:15 Dose: 1 each Miscellaneous Information (Pharmacy Glycemic Mgmt Consult) 1 each N/A UD PRN PRN Reason: Consult Stop: 02/23/23 17:08 Morphine Sulfate (Morphine Sulfate 2 Mg/Ml Carp) 2 mg IV Q4H PRN PRN Reason: Severe Pain (Scale 7, 8, 9,10) Stop: 02/11/23 11:56 Multivitamins/Minerals (Cerovite Adv Formula Tab) 1 tab PO BID [facility] Stop: 02/23/23 20:59 Last Admin: 02/01/23 08:12 Dose: 1 tab Nystatin (Nystatin Powder 15gm Btl) 1 appln EXT BID [facility] Stop: 02/23/23 20:59 Last Admin: 02/01/23 08:13 Dose: 1 appln Oxycodone HCl (Oxycodone Hcl Ir 5 Mg Tab (Immediate Release)) 5 mg PO Q6H PRN PRN Reason: Pain Stop: 02/07/23 20:29 Last Admin: 01/31/23 20:47 Dose: 5 mg Pantoprazole Sodium (Pantoprazole 40 Mg Tab) 40 mg PO QAM [facility] Stop: 02/24/23 08:59 Last Admin: 02/01/23 08:11 Dose: 40 mg Phenazopyridine HCl (Phenazopyridine Hcl 100 Mg Tab) 100 mg PO TID PRN PRN Reason: Dysuria Stop: 02/27/23 18:29 Last Admin: 01/30/23 09:13 Dose: 100 mg Polyethylene Glycol (Polyethylene (Miralax) 17 Gm Pack) 17 gm PO DAILY PRN PRN Reason: Constipation Stop: 02/23/23 13:18 Last Admin: 01/28/23 15:28 Dose: 17 gm Potassium Chloride (Potassium Chloride Crtab 20 Meq Tabcr) 40 meq PO MoWe@0900 [facility] Stop: 02/25/23 08:59 Last Admin: 01/25/23 21:07 Dose: 40 meq Potassium Chloride (Potassium Chloride Crtab 20 Meq Tabcr) 20 meq PO SuTuThFrSa@0900,2100 [facility] Stop: 02/23/23 20:59 Last Admin: 02/01/23 08:11 Dose: 20 meq Potassium Chloride (Potassium Chloride Crtab 20 Meq Tabcr) 20 meq PO MoWe@2100 [facility] Stop: 02/25/23 20:59 Last Admin: 01/25/23 21:09 Dose: 20 meq Sennosides (Senna 8.6 Mg Tab) 8.6 mg PO BID [facility] Stop: 02/23/23 20:59 Last Admin: 02/01/23 08:12 Dose: 8.6 mg Spironolactone (Spironolactone 25 Mg Tab) 25 mg PO DAILY [facility] Stop: 02/24/23 08:59 Last Admin: 02/01/23 08:11 Dose: 25 mg Vancomycin HCl (Vancomycin 25mg/Ml Fortified Oph Drops) 1 drops OPL QID [facility] Stop: 02/05/23 16:59 Last Admin: 02/01/23 13:20 Dose: 1 drops Vitamin D (Cholecalciferol 1,000 Units 25 Mcg Tab) 2,000 units PO DAILY [facility] Stop: 02/24/23 08:59 Last Admin: 02/01/23 08:11 Dose: 2,000 units
[2023-02-01] MEDS: DIGOXIN 0.125 MG TAB PO SCH (17:25)
[2023-02-01] MEDS: LIDOCAINE 5% 1 PATCH TD SCH (21:03)
[2023-02-02] MEDS: Cefepime 2,000 MG Extended Infusion IV SCH ×3 (01:01→17:32)
[2023-02-02] MEDS: LEVOTHYROXINE SODIUM 125 MCG TABLET PO SCH (06:01)
[2023-02-02] MEDS: METOPROLOL SUCC 50MG EXT REL TAB PO SCH ×2 (07:55→20:58)
[2023-02-02] MEDS: FUROSEMIDE 80 MG TAB PO SCH ×2 (08:49→20:57)
[2023-02-02] MEDS: SPIRONOLACTONE 25 MG TAB PO SCH (08:50)
[2023-02-02] MEDS: NYSTATIN POWDER 15GM BTL EXT SCH ×2 (09:05→21:01)
[2023-02-02] MEDS: ASPIRIN 81 MG ECTAB PO SCH (09:06)
[2023-02-02] MEDS: ARTIFICIAL TEARS OP SCH ×4 (09:06→20:56)
[2023-02-02] MEDS: CEROVITE ADV FORMULA TAB PO SCH ×2 (09:06→20:59)
[2023-02-02] MEDS: ERYTHROMYCIN OP OINT 5 MG/GM 3.5 GM TUBE OPL SCH ×2 (09:06→21:00)
[2023-02-02] MEDS: CHOLECALCIFEROL 1,000 UNITS 25 MCG TAB PO SCH (09:06)
[2023-02-02] MEDS: buPROPion XL 300 MG TABCR PO SCH (09:06)
[2023-02-02] MEDS: POTASSIUM CHLORIDE CRTAB 20 MEQ TABCR PO SCH ×2 (09:07→21:02)
[2023-02-02] MEDS: PANTOprazole 40 MG TAB PO SCH (09:07)
[2023-02-02] MEDS: SENNA 8.6 MG TAB PO SCH ×2 (09:07→20:58)
[2023-02-02] MEDS: allopurinoL 300 MG TAB PO SCH (09:07)
[2023-02-02] MEDS: GABAPENTIN 300 MG CAP PO SCH ×4 (09:07→20:56)
[2023-02-02] MEDS: APIXABAN 5 MG TABLET PO SCH ×2 (09:08→20:57)
[2023-02-02] MEDS: MICONAZOLE NITRATE POWDER 85 GM TOP SCH (09:08)
[2023-02-02] MEDS: MENTHOL-ZINC OXIDE 360 APPLN/120 GM TUBE EXT SCH ×2 (09:08→20:59)
[2023-02-02] MEDS: DULoxetine HCL 60 MG CAP PO SCH (09:08)
[2023-02-02] MEDS: MAGNESIUM OXIDE 400 MG TAB PO SCH (09:08)
[2023-02-02] MEDS: INSULIN ASPART PER UNIT CHARGE SC SCH ×4 (09:16→21:08)
[2023-02-02] MEDS: LANTUS PER UNIT CHARGE SC SCH ×2 (09:17→21:07)
[2023-02-02] MEDS: VANCOMYCIN 25MG/ML FORTIFIED OPH DROPS OPL SCH ×4 (09:18→21:16)
[2023-02-02 09:51] LABS: Calcium 10.2 mg/dl (8.6-10.3); Potassium 3.8 mmol/L (3.5-5.1)
[2023-02-02 09:57] LABS: BUN Creatinine Ratio 28.2 (10-20); Creatinine Clr Calc Pharmacy 57.4 ml/min; Est GFR (African American) 48.7 ml/min; Est GFR (Non-African American) 42.1 ml/min
[2023-02-02] MEDS: DOXYCYCLINE HYCLATE 100 MG CAP PO SCH ×2 (10:30→20:56)
--- NOTE | 2023-02-02 11:13 | Nephrology Progress Note ---
Date of Service February 02, 2023 Assessment & Plan (1) ALMA ROSA (acute kidney injury): Plan: Patient with nonoliguric acute kidney injury on CKD 3A with baseline creatinine of 1.2-1.3 for an estimated GFR of about 55 mL/min. Etiology is likely ATN from infection and contrast nephropathy. Creatinine is slightly up to 1.6 today from 1.5 yesterday. - continue bagley as needed; from neph standpoint could d/c Daily basic metabolic panel > Continue lasix 80 mg po bid and potassium supplements and spironolactone Admission and Anticipated Discharge Date Admission Date: January 24, 2023 Subjective Seen for acute kidney injury. He feels better today. No shortness of breath. He is making urine 3.2 L yesterday and was net -1.6 L. Blood pressure is on the lower side. Review of Systems Review of Systems: All other systems were reviewed and negative except as noted in HPI Physical Exam Physical Exam: General exam: Appears comfortable, no acute distress HEENT: Pupils are equal and reactive to light Neck: No JVD, neck is supple trachea is midline Respiratory system: Clear breath sounds bilaterally. Gastrointestinal: Abdomen is soft, non distended, non tender, bowel sounds are present CVS: Regular rate and rhythm. No murmurs, rubs or gallops Musculoskeletal: No joint or muscle tenderness Extremities: Non tender, no edema, peripheral pulses are present Neuro: Oriented, no tremors, no focal neurological deficits Skin: No rashes Results & Data Vital Signs (Past 12 Hours) Vital Signs Temp Pulse Pulse Resp BP BP Pulse Ox 02/02/23 07:46 36.6 C 91 H 16 91/65 L 93 02/02/23 07:23 102 H 02/02/23 03:23 36.8 C 96 H 18 138/78 92 02/01/23 23:17 36.7 C 101 H 16 130/74 90 02/02/23 00:02 O2 Del Method 02/02/23 07:46 Room Air 02/02/23 07:23 02/02/23 03:23 Room Air 02/01/23 23:17 Room Air 02/02/23 00:02 Room Air Laboratory Results 02/02/23 08:58
--- NOTE | 2023-02-02 12:36 | Pharmacy Report ---
Pharmacy Glycemic Short Note 2 - Date of Service February 02, 2023 - Glycemic Short BSG Results (Last 24 hours): 02/01/23 02/01/23 02/02/23 16:28 20:47 07:14 Glucose POC Glucose 175 H 156 H 169 H 02/02/23 02/02/23 08:58 11:44 Glucose 188 H POC Glucose 245 H OUTPATIENT ANTIDIABETIC REGIMEN: * Insulin glargine 70 units SC BID * Regular insulin 22 units SC TIDM plus SSI HbA1c 10.4% on 01/25/23 ASSESSMENT: 02/02/23 * Patient's BSGs yesterday were [phone] mg/dL. Patient received 209 units of insulin (120 units of basal and 89 units of bolus). * Fasting today is 169 mg/dL. Lunch was 245 mg/dL. * Yesterday trialed a tighter CR with breakfast and it was effective. Today, breakfast Novolog given late so most likely reason for elevated lunch BSG. * Fastings continue to be elevated so increase Lantus slightly. 01/30/23: * Patient received total of 178 units of insulin yesterday, of which 120 units were basal * Fasting BSG elevated at 231 mg/dL this AM - patient has been receiving 120 units of basal/day the last several days and fasting BSGs have been <160 mg/dL * Unclear reasoning for higher fasting blood sugar this AM. Unsure if snacking overnight. Will continue same basal insulin for today, may need to increase further tomorrow if still elevated * Tightened CF/CR this AM 01/27/23: * BSGs elevated yesterday, ranging 169-272 mg/dL * Received 173 units of insulin (120 units of which were basal) * Fasting BSG improved today at 147 mg/dL - will continue current basal * Carb ratio tightened yesterday, will tighten correction factor today 01/25/23: * 72 yo M with T2DM well known to our glycemic service admitted with AMS and UTI * Will utilize data from prior admissions to guide current regimen PLAN FOR INPATIENT GLYCEMIC CONTROL: * Basal insulin * Lantus 65 units SC BID * Bolus insulin * NovoLog per scale ACHS or Q6hrs while NPO * Goal Range: Low 120 mg/dL - High 150 mg/dL * Correction Factor: 8 mg/dL/unit * Nutritional / Prandial insulin per carb ratio of 1 unit per 2.5 grams CHO consumed (at breakfast, use ratio of 1.5)
--- NOTE | 2023-02-02 16:22 | Hospitalist Progress Note ---
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 UTI on urinalysis. 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 Pt follows with [facility] and his last appointment was on 01/09; noted five pound weight gain over the past two weeks. No leukocytosis; started on Unasyn in ED; await cultures and adjust. 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 Acute metabolic encephalopathy UTI --CT head:No acute intracranial abnormality. -Urine culture growing Pseudomonas, Stenotrophomonas -Blood cultures: 07/16: Coagulase-negative staph not lugdunensis--likely contaminant Has been on cefepime, added Levaquin Mental status back to baseline Appreciate ID input and recommendation Levaquin can be stopped Will continue cefepime for now Clinically much better-remains weak but no more encephalopathic Remains stable without any significant symptoms except weakness Has been feeling much better and denies any urinary symptoms-we will stop cefepime tomorrow ALMA ROSA on CKD III Contrast-induced nephropathy -Renal USD:No hydronephrosis. Mild bilateral renal cortical thinning. Cr 2.18>1.9>1.6 Hold diuretics Avoid nephrotoxic agents as able Received IV fluids Bladder scan as needed Appreciate nephrology input and recommendation Continue to monitor Renal function slowly improving and keep improving Kidney function has improved a lot and the patient is ready to be discharged Slightly worse that 1.63 creatinine-we will monitor PRP Finger wound infection Finger wound culture growing MRSA, group B beta strep Added Daptomycin, continue cefepime as above Continue wound care And adjust medications based on ID recommendations Daptomycin can be discontinued and doxycycline will be added to finish the course up to Antibiotics will be done by Left hip pain/Back Pain Mechanical fall --Hip X ray:No fracture or dislocation within the pelvis or hips. --Hip CT:Degenerative changes are seen without evidence of acute fracture. PT OT, fall precautions Pain is controlled Obtain lumbar CT-intramuscular hemorrhage within the portions of the left psoas, iliopsoas and iliac us muscle. Will get CT of the abdomen and pelvis to evaluate more bleeding as the patient is still having symptoms of pain involving the left thigh CT of the abdomen and pelvis did not show any sparing of hemorrhage Reassured about the pain in the left thigh which will improve eventually Combined systolic/diastolic CHF: Follows with [facility]; last appt --CXR:Cardiomegaly and mild congestive change. This is similar to the prior study. Monitor volume status, renal function Hold Metolazone, Lasix, Spironolactone due to ALMA ROSA Will need to restart Lasix when the kidney function improves Venous ulcers: Numerous right foot and left hand 4th and 5th digits ulcers Follows with [facility]; last appt 01/14 [facility] records indicate to keep covered with Xeroform Continue Waffle boots Continue wound care Persistent atrial fibrillation: Pacemaker Continue Digoxin, Metoprolol, Eliquis COPD: SALAS: Continue CPAP at bedtime Hypothyroidism: Continue Levothyroxine Insulin-dependent diabetes mellitus with peripheral neuropathy: Diabetic Foot ulcers: Follows with wound clinic HbA1c 10.4 Continue insulin while hospitalized Monitor BGs HLD: Continue Atorvastatin Depression: PTSD: Continue Buspar Gout: Continue Allopurinol Code Status Full Code DVT Px: Eliquis Disposition PT OT prior to discharge Will need to go to rehab-awaiting rehab placement Admission and Anticipated Discharge Date Admission Date: January 24, 2023 Subjective 01/30/2023 The patient was seen and examined in medical telemetry unit He has been stable and denies any significant symptoms Denies any fever and or chills, any hand pain or increasing swelling or redness, any shortness of breath or palpitation 01/31/2023 The patient was seen and examined in medical telemetry unit He has been stable and denies any significant symptoms Remains generally weak and lethargy 02/01/2023 The patient was seen and examined in medical telemetry unit He has been stable but he still has pain in the left thigh and buttock area CT scan of the abdomen and pelvis did not show any increasing hemorrhage in the muscles He has been weak and lethargic but denies any other significant symptoms 02/02/2023 The patient was seen and examined in medical telemetry unit He has been feeling much better and sitting at the edge of the bed without any distress Blood pressure has been stable though it was noted to be low this morning He has been waiting to be accepted by [facility] Review of Systems Review of Systems: All systems reviewed and are unremarkable except as noted below Physical Exam Physical Exam: Sitting on a chair without any acute distress Constitutional: well developed, well nourished, + ill appearing and + morbidly obese Eyes: PERRL, conjunctivae normal, anicteric sclerae ENMT: external ear and nose normal, oropharynx normal Neck: trachea midline, no thyromegaly Respiratory: no respiratory distress Auscultation: + diminished lung sounds and + crackles (Bibasilar crackles) Cardiovascular: Rate/Rhythm: regular rate and regular rhythm; not tachycardic Heart Sounds: normal S1 and normal S2; no murmur Extremities: + edema (Trace to 1+ edema bilaterally) Gastrointestinal (Abdomen): Inspection/Auscultation: + abdomen distended and normal bowel sounds Percussion/Palpation: abdomen soft; abdomen nontender Musculoskeletal: No acute arthritis involving any of the joint Neurologic: Alert, awake and oriented x3. Generally very weak and lethargic Lymphatic: no cervical or axillary lymphadenopathy Results & Data Results & Data Vital Signs (Past 12 Hours) Vital Signs Temp Pulse Pulse Resp BP BP Pulse Ox 02/02/23 15:54 76 02/02/23 12:33 36.5 C 65 20 119/69 99 02/02/23 09:20 02/02/23 07:46 36.6 C 91 H 16 91/65 L 93 02/02/23 07:23 102 H O2 Del Method 02/02/23 15:54 02/02/23 12:33 Room Air 02/02/23 09:20 Room Air 02/02/23 07:46 Room Air 02/02/23 07:23 Laboratory Results [facility] 02/02/23 08:58 Sodium 137 Potassium 3.8 Chloride 101 Carbon Dioxide 28 BUN 46 H Creatinine 1.63 H Glucose 188 H Calcium 10.2 Medications Administered Current Inpatient Medications Acetaminophen (Acetaminophen 325 Mg Tab) 650 mg PO Q4H PRN PRN Reason: Pain or Fever Stop: 02/23/23 13:18 Last Admin: 02/01/23 20:08 Dose: 650 mg Al Hydrox/Mg Hydrox/Simethicone (Aluminum/Magnesium Susp 30 Ml Udc) 15 ml PO Q4H PRN PRN Reason: Dyspepsia Stop: 02/23/23 13:18 Allopurinol (Allopurinol 300 Mg Tab) 300 mg PO DAILY OFE Stop: 02/24/23 08:59 Last Admin: 02/02/23 09:07 Dose: 300 mg Apixaban (Apixaban 5 Mg Tablet) 5 mg PO Q12 OFE Stop: 02/23/23 20:59 Last Admin: 02/02/23 09:08 Dose: 5 mg Artificial Tears (Artificial Tears) 1 drops OP QID FOE Stop: 02/23/23 16:59 Last Admin: 02/02/23 12:38 Dose: 1 drops Aspirin (Aspirin 81 Mg Ectab) 81 mg PO DAILY OFE Stop: 02/24/23 08:59 Last Admin: 02/02/23 09:06 Dose: 81 mg Atorvastatin Calcium (Atorvastatin 10 Mg Tab) 10 mg PO HS OFE Stop: 02/23/23 20:59 Last Admin: 01/26/23 20:51 Dose: 10 mg Bupropion HCl (Bupropion Xl 300 Mg Tabcr) 300 mg PO QAM [facility]E Stop: 02/24/23 08:59 Last Admin: 02/02/23 09:06 Dose: 300 mg Calamine/Phenol (Menthol-Zinc Oxide 360 Appln/120 Gm Tube) 1 appln EXT BID OFE Stop: 02/23/23 20:59 Last Admin: 02/02/23 09:08 Dose: 1 appln Dextrose (Dextrose 50% 50 Ml Syringe) 25 - 50 ml IV UD PRN; Protocol PRN Reason: Hypoglycemia Protocol Stop: 02/23/23 17:08 Digoxin (Digoxin 0.125 Mg Tab) 0.125 mg PO DAILY@1600 [facility]E Stop: 02/24/23 15:59 Last Admin: 02/01/23 17:25 Dose: 0.125 mg Doxycycline Hyclate (Doxycycline Hyclate 100 Mg Cap) 100 mg PO BID OFE Stop: 02/03/23 21:01 Last Admin: 02/02/23 10:30 Dose: 100 mg Duloxetine HCl (Duloxetine Hcl 60 Mg Cap) 60 mg PO DAILY [facility]E Stop: 02/24/23 08:59 Last Admin: 02/02/23 09:08 Dose: 60 mg Erythromycin (Erythromycin Op Oint 5 Mg/Gm 3.5 Gm Tube) 1 appln OPL BID [facility] Stop: 02/03/23 20:59 Last Admin: 02/02/23 09:06 Dose: 1 appln Furosemide (Furosemide 80 Mg Tab) 80 mg PO BID [facility] Stop: 02/23/23 20:59 Last Admin: 02/02/23 08:49 Dose: Not Given Gabapentin (Gabapentin 300 Mg Cap) 300 mg PO QID [facility] Stop: 03/01/23 12:59 Last Admin: 02/02/23 12:38 Dose: 300 mg Glucagon (Glucagon For Inj 1 Mg Vial) 1 mg SQ UD PRN; Protocol PRN Reason: Hypoglycemia Protocol Stop: 02/23/23 17:08 Glucose (Glucose 10 Tab/Tube) 4 - 8 tab PO UD PRN; Protocol PRN Reason: Hypoglycemia Treatment Stop: 02/23/23 17:08 Glucose (Glucose 40% Gel 15 Gm Tube) 15 - 30 gm PO UD PRN; Protocol PRN Reason: Hypoglycemia Protocol Stop: 02/23/23 17:08 Cefepime HCl 2,000 mg/ (Dextrose) 120 mls @ 40 mls/hr IV Q8H [facility]; Protocol Stop: 02/03/23 19:00 Last Infusion: 02/02/23 12:27 Dose: Infused Insulin Aspart (Insulin Aspart Per Unit Charge) 0 units SC DAILY@1130,1630,2100 [facility]; Protocol Stop: 03/03/23 16:29 Last Admin: 02/02/23 12:42 Dose: 29 units Insulin Aspart (Insulin Aspart Per Unit Charge) 0 units SC DAILY@0730 [facility]; Protocol Stop: 03/04/23 07:29 Last Admin: 02/02/23 09:16 Dose: 44 units Insulin Glargine (Lantus Per Unit Charge) 65 units SC BID [facility]; Protocol Stop: 03/04/23 08:59 Last Admin: 02/02/23 09:17 Dose: 65 units Levothyroxine Sodium (Levothyroxine Sodium 125 Mcg Tablet) 250 mcg PO DAILYBB [facility] Stop: 02/24/23 06:29 Last Admin: 02/02/23 06:01 Dose: 250 mcg Lidocaine (Lidocaine 5% 1 Patch) 1 patch TD HS [facility] Stop: 02/27/23 20:59 Last Admin: 02/01/23 21:03 Dose: 1 patch Magnesium Hydroxide (Magnesium Hydroxide Susp 30 Ml Udc) 30 ml PO Q12H PRN PRN Reason: Constipation Stop: 02/23/23 13:18 Last Admin: 01/28/23 09:20 Dose: 30 ml Magnesium Oxide (Magnesium Oxide 400 Mg Tab) 400 mg PO DAILY [facility] Stop: 02/24/23 08:59 Last Admin: 02/02/23 09:08 Dose: 400 mg Metolazone (Metolazone 2.5 Mg Tablet) 2.5 mg PO MoWe@0900 [facility] Stop: 02/25/23 08:59 Last Admin: 01/26/23 07:47 Dose: 2.5 mg Metoprolol Succinate (Metoprolol Succ 50mg Ext Rel Tab) 100 mg PO BID [facility] Stop: 02/23/23 20:59 Last Admin: 02/02/23 07:55 Dose: Not Given Miconazole Nitrate (Miconazole Nitrate Powder 85 Gm) 1 appln TOP DAILY [facility] Stop: 02/24/23 08:59 Last Admin: 02/02/23 09:08 Dose: 1 appln Miscellaneous (Carbohydrates For Hypoglycemia ) 15 - 30 gm PO UD PRN PRN Reason: Hypoglycemia Protocol Stop: 02/23/23 17:08 Miscellaneous (Remove Lidoderm Patch) 1 each N/A DAILY [facility] Stop: 02/28/23 08:59 Last Admin: 02/02/23 09:08 Dose: 1 each Miscellaneous Information (Pharmacy Glycemic Mgmt Consult) 1 each N/A UD PRN PRN Reason: Consult Stop: 02/23/23 17:08 Morphine Sulfate (Morphine Sulfate 2 Mg/Ml Carp) 2 mg IV Q4H PRN PRN Reason: Severe Pain (Scale 7, 8, 9,10) Stop: 02/11/23 11:56 Multivitamins/Minerals (Cerovite Adv Formula Tab) 1 tab PO BID [facility] Stop: 02/23/23 20:59 Last Admin: 02/02/23 09:06 Dose: 1 tab Nystatin (Nystatin Powder 15gm Btl) 1 appln EXT BID [facility] Stop: 02/23/23 20:59 Last Admin: 02/02/23 09:05 Dose: 1 appln Oxycodone HCl (Oxycodone Hcl Ir 5 Mg Tab (Immediate Release)) 5 mg PO Q6H PRN PRN Reason: Pain Stop: 02/07/23 20:29 Last Admin: 01/31/23 20:47 Dose: 5 mg Pantoprazole Sodium (Pantoprazole 40 Mg Tab) 40 mg PO QAM [facility] Stop: 02/24/23 08:59 Last Admin: 02/02/23 09:07 Dose: 40 mg Phenazopyridine HCl (Phenazopyridine Hcl 100 Mg Tab) 100 mg PO TID PRN PRN Reason: Dysuria Stop: 02/27/23 18:29 Last Admin: 01/30/23 09:13 Dose: 100 mg Polyethylene Glycol (Polyethylene (Miralax) 17 Gm Pack) 17 gm PO DAILY PRN PRN Reason: Constipation Stop: 02/23/23 13:18 Last Admin: 01/28/23 15:28 Dose: 17 gm Potassium Chloride (Potassium Chloride Crtab 20 Meq Tabcr) 40 meq PO MoWe@0900 [facility] Stop: 02/25/23 08:59 Last Admin: 02/02/23 09:07 Dose: 40 meq Potassium Chloride (Potassium Chloride Crtab 20 Meq Tabcr) 20 meq PO SuTuThFrSa@0900,2100 [facility] Stop: 02/23/23 20:59 Last Admin: 02/01/23 21:06 Dose: 20 meq Potassium Chloride (Potassium Chloride Crtab 20 Meq Tabcr) 20 meq PO MoWe@2100 [facility] Stop: 02/25/23 20:59 Last Admin: 01/25/23 21:09 Dose: 20 meq Sennosides (Senna 8.6 Mg Tab) 8.6 mg PO BID [facility] Stop: 02/23/23 20:59 Last Admin: 02/02/23 09:07 Dose: 8.6 mg Spironolactone (Spironolactone 25 Mg Tab) 25 mg PO DAILY [facility] Stop: 02/24/23 08:59 Last Admin: 02/02/23 08:50 Dose: Not Given Vancomycin HCl (Vancomycin 25mg/Ml Fortified Oph Drops) 1 drops OPL QID [facility] Stop: 02/05/23 16:59 Last Admin: 02/02/23 12:41 Dose: 1 drops Vitamin D (Cholecalciferol 1,000 Units 25 Mcg Tab) 2,000 units PO DAILY [facility] Stop: 02/24/23 08:59 Last Admin: 02/02/23 09:06 Dose: 2,000 units
[2023-02-02] MEDS: DIGOXIN 0.125 MG TAB PO SCH (17:31)
[2023-02-02] MEDS: LIDOCAINE 5% 1 PATCH TD SCH (20:58)
[2023-02-02] MEDS: oxyCODONE HCL IR 5 MG TAB (IMMEDIATE RELEASE) PO PRN (22:28)
[2023-02-03] MEDS: Cefepime 2,000 MG Extended Infusion IV SCH ×3 (00:08→17:23)
[2023-02-03] MEDS: ACETAMINOPHEN 325 MG TAB PO PRN (01:47)
[2023-02-03] MEDS: LEVOTHYROXINE SODIUM 125 MCG TABLET PO SCH (05:44)
[2023-02-03] MEDS: LANTUS PER UNIT CHARGE SC SCH ×2 (08:31→22:15)
[2023-02-03] MEDS: INSULIN ASPART PER UNIT CHARGE SC SCH ×4 (08:32→21:48)
[2023-02-03] MEDS: ARTIFICIAL TEARS OP SCH ×4 (08:32→21:40)
[2023-02-03] MEDS: MICONAZOLE NITRATE POWDER 85 GM TOP SCH (08:33)
[2023-02-03] MEDS: MENTHOL-ZINC OXIDE 360 APPLN/120 GM TUBE EXT SCH ×2 (08:33→21:47)
[2023-02-03] MEDS: SPIRONOLACTONE 25 MG TAB PO SCH (08:33)
[2023-02-03] MEDS: NYSTATIN POWDER 15GM BTL EXT SCH ×2 (08:33→21:54)
[2023-02-03] MEDS: FUROSEMIDE 80 MG TAB PO SCH ×2 (08:33→21:46)
[2023-02-03] MEDS: DULoxetine HCL 60 MG CAP PO SCH (08:34)
[2023-02-03] MEDS: GABAPENTIN 300 MG CAP PO SCH ×4 (08:34→21:44)
[2023-02-03] MEDS: APIXABAN 5 MG TABLET PO SCH ×2 (08:34→21:46)
[2023-02-03] MEDS: METOPROLOL SUCC 50MG EXT REL TAB PO SCH ×2 (08:34→21:41)
[2023-02-03] MEDS: CEROVITE ADV FORMULA TAB PO SCH ×2 (08:34→21:44)
[2023-02-03] MEDS: CHOLECALCIFEROL 1,000 UNITS 25 MCG TAB PO SCH (08:34)
[2023-02-03] MEDS: PANTOprazole 40 MG TAB PO SCH (08:34)
[2023-02-03] MEDS: SENNA 8.6 MG TAB PO SCH ×2 (08:34→21:43)
[2023-02-03] MEDS: ASPIRIN 81 MG ECTAB PO SCH (08:34)
[2023-02-03] MEDS: allopurinoL 300 MG TAB PO SCH (08:34)
[2023-02-03] MEDS: MAGNESIUM OXIDE 400 MG TAB PO SCH (08:34)
[2023-02-03] MEDS: buPROPion XL 300 MG TABCR PO SCH (08:34)
[2023-02-03 08:35] LABS: Calcium 10.2 mg/dl (8.6-10.3); Creatinine Clr Calc Pharmacy 65.4 ml/min; Est GFR (African American) 56.6 ml/min; Est GFR (Non-African American) 48.9 ml/min; Potassium 3.8 mmol/L (3.5-5.1)
[2023-02-03] MEDS: ERYTHROMYCIN OP OINT 5 MG/GM 3.5 GM TUBE OPL SCH (08:35)
[2023-02-03] MEDS: DOXYCYCLINE HYCLATE 100 MG CAP PO SCH ×2 (08:35→21:55)
[2023-02-03] MEDS: POTASSIUM CHLORIDE CRTAB 20 MEQ TABCR PO SCH ×2 (08:35→21:45)
[2023-02-03] MEDS: VANCOMYCIN 25MG/ML FORTIFIED OPH DROPS OPL SCH ×4 (08:36→22:15)
--- NOTE | 2023-02-03 15:42 | Hospitalist Progress Note ---
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 UTI on urinalysis. 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 Pt follows with [facility] and his last appointment was on 01/09; noted five pound weight gain over the past two weeks. No leukocytosis; started on Unasyn in ED; await cultures and adjust. 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 Acute metabolic encephalopathy UTI --CT head:No acute intracranial abnormality. -Urine culture growing Pseudomonas, Stenotrophomonas -Blood cultures: 07/16: Coagulase-negative staph not lugdunensis--likely contaminant Has been on cefepime, added Levaquin Mental status back to baseline Appreciate ID input and recommendation Levaquin can be stopped Will continue cefepime for now Clinically much better-remains weak but no more encephalopathic Remains stable without any significant symptoms except weakness Has been feeling much better and denies any urinary symptoms-we will stop cefepime tomorrow No symptoms of UTI and antibiotic course will be done by today ALMA ROSA on CKD III Contrast-induced nephropathy -Renal USD:No hydronephrosis. Mild bilateral renal cortical thinning. Cr 2.18>1.9>1.6 Hold diuretics Avoid nephrotoxic agents as able Received IV fluids Bladder scan as needed Appreciate nephrology input and recommendation Continue to monitor Renal function slowly improving and keep improving Kidney function has improved a lot and the patient is ready to be discharged Creatinine has improved to 1.44-we will continue furosemide with potassium supplement , spironolactone and metolazone is on hold Finger wound infection Finger wound culture growing MRSA, group B beta strep Added Daptomycin, continue cefepime as above Continue wound care And adjust medications based on ID recommendations Daptomycin can be discontinued and doxycycline will be added to finish the course up to Antibiotics will be done by Cellulitis of the fingers is better and controlled Left hip pain/Back Pain Mechanical fall --Hip X ray:No fracture or dislocation within the pelvis or hips. --Hip CT:Degenerative changes are seen without evidence of acute fracture. PT OT, fall precautions Pain is controlled Obtain lumbar CT-intramuscular hemorrhage within the portions of the left psoas, iliopsoas and iliac us muscle. Will get CT of the abdomen and pelvis to evaluate more bleeding as the patient is still having symptoms of pain involving the left thigh CT of the abdomen and pelvis did not show any sparing of hemorrhage Reassured about the pain in the left thigh which will improve eventually Hemoglobin remains stable and no evidence of any more bleeding Combined systolic/diastolic CHF: Follows with [facility]; last appt --CXR:Cardiomegaly and mild congestive change. This is similar to the prior study. Monitor volume status, renal function Hold Metolazone, Lasix, Spironolactone due to ALMA ROSA Will need to restart Lasix when the kidney function improves No signs and or symptoms of fluid overload Venous ulcers: Numerous right foot and left hand 4th and 5th digits ulcers Follows with [facility]; last appt 01/14 OPT records indicate to keep covered with Xeroform Continue Waffle boots Continue wound care Persistent atrial fibrillation: Pacemaker Continue Digoxin, Metoprolol, Eliquis COPD: SALAS: Continue CPAP at bedtime Hypothyroidism: Continue Levothyroxine Insulin-dependent diabetes mellitus with peripheral neuropathy: Diabetic Foot ulcers: Follows with wound clinic HbA1c 10.4 Continue insulin while hospitalized Monitor BGs HLD: Continue Atorvastatin Depression: PTSD: Continue Buspar Gout: Continue Allopurinol Code Status Full Code DVT Px: Eliquis Disposition PT OT prior to discharge Will need to go to rehab-awaiting rehab placement Admission and Anticipated Discharge Date Admission Date: January 24, 2023 Subjective 01/30/2023 The patient was seen and examined in medical telemetry unit He has been stable and denies any significant symptoms Denies any fever and or chills, any hand pain or increasing swelling or redness, any shortness of breath or palpitation 01/31/2023 The patient was seen and examined in medical telemetry unit He has been stable and denies any significant symptoms Remains generally weak and lethargy 02/01/2023 The patient was seen and examined in medical telemetry unit He has been stable but he still has pain in the left thigh and buttock area CT scan of the abdomen and pelvis did not show any increasing hemorrhage in the muscles He has been weak and lethargic but denies any other significant symptoms 02/02/2023 The patient was seen and examined in medical telemetry unit He has been feeling much better and sitting at the edge of the bed without any distress Blood pressure has been stable though it was noted to be low this morning He has been waiting to be accepted by [facility] 02/03/2023 The patient was seen and examined in medical telemetry unit He has been stable and has been awaiting placement Denies any significant symptoms Review of Systems Review of Systems: All systems reviewed and are unremarkable except as noted below Physical Exam Constitutional: well developed, well nourished, + ill appearing, + morbidly obese, + obese, + frail appearing and cooperative; no acute distress Eyes: PERRL, conjunctivae normal, anicteric sclerae EOM intact bilaterally ENMT: external ear and nose normal, oropharynx normal Ears: + hearing impairment; no external ear abnormality Nose: no external nose abnormality Mouth: + dry oral mucous membranes and + edentulous Neck: trachea midline, no thyromegaly no nuchal rigidity Respiratory: normal respiratory effort; no respiratory distress Auscultation: + diminished lung sounds and + crackles (Bibasilar crackles) Cardiovascular: Rate/Rhythm: regular rate and regular rhythm; not tachycardic Heart Sounds: normal S1 and normal S2; no murmur Extremities: + edema (Trace to 1+ edema bilaterally) Gastrointestinal (Abdomen): Inspection/Auscultation: + abdomen distended and normal bowel sounds Percussion/Palpation: abdomen soft; abdomen nontender Musculoskeletal: Extremities: strength 5/5 throughout Skin: no rashes, warm and dry Trauma: + evidence of skin trauma Neurologic: Alert, awake and oriented x3. Generally very weak and lethargic. Breathing all limbs equally Lymphatic: no cervical or axillary lymphadenopathy Results & Data Results & Data Vital Signs (Past 12 Hours) Vital Signs Temp Pulse Pulse Resp BP Pulse Ox O2 Del Method 02/03/23 15:10 36.4 C L 77 18 136/78 93 Room Air 02/03/23 15:01 70 02/03/23 11:20 Room Air 02/03/23 11:05 36.4 C L 71 18 126/71 93 Room Air 02/03/23 07:37 36.4 C L 73 18 95/53 L 95 Room Air 02/03/23 07:06 86 Laboratory Results [facility] 02/03/23 07:34 Sodium 137 Potassium 3.8 Chloride 102 Carbon Dioxide 29 BUN 49 H Creatinine 1.44 H Glucose 192 H Calcium 10.2 Medications Administered Current Inpatient Medications Acetaminophen (Acetaminophen 325 Mg Tab) 650 mg PO Q4H PRN PRN Reason: Pain or Fever Stop: 02/23/23 13:18 Last Admin: 02/03/23 01:47 Dose: 650 mg Al Hydrox/Mg Hydrox/Simethicone (Aluminum/Magnesium Susp 30 Ml Udc) 15 ml PO Q4H PRN PRN Reason: Dyspepsia Stop: 02/23/23 13:18 Allopurinol (Allopurinol 300 Mg Tab) 300 mg PO DAILY [facility] Stop: 02/24/23 08:59 Last Admin: 02/03/23 08:34 Dose: 300 mg Apixaban (Apixaban 5 Mg Tablet) 5 mg PO Q12 OFE Stop: 02/23/23 20:59 Last Admin: 02/03/23 08:34 Dose: 5 mg Artificial Tears (Artificial Tears) 1 drops OP QID [facility] Stop: 02/23/23 16:59 Last Admin: 02/03/23 12:08 Dose: 1 drops Aspirin (Aspirin 81 Mg Ectab) 81 mg PO DAILY [facility] Stop: 02/24/23 08:59 Last Admin: 02/03/23 08:34 Dose: 81 mg Atorvastatin Calcium (Atorvastatin 10 Mg Tab) 10 mg PO HS OFE Stop: 02/23/23 20:59 Last Admin: 01/26/23 20:51 Dose: 10 mg Bupropion HCl (Bupropion Xl 300 Mg Tabcr) 300 mg PO QAM [facility] Stop: 02/24/23 08:59 Last Admin: 02/03/23 08:34 Dose: 300 mg Calamine/Phenol (Menthol-Zinc Oxide 360 Appln/120 Gm Tube) 1 appln EXT BID [facility] Stop: 02/23/23 20:59 Last Admin: 02/03/23 08:33 Dose: 1 appln Dextrose (Dextrose 50% 50 Ml Syringe) 25 - 50 ml IV UD PRN; Protocol PRN Reason: Hypoglycemia Protocol Stop: 02/23/23 17:08 Digoxin (Digoxin 0.125 Mg Tab) 0.125 mg PO DAILY@1600 [facility] Stop: 02/24/23 15:59 Last Admin: 02/02/23 17:31 Dose: 0.125 mg Doxycycline Hyclate (Doxycycline Hyclate 100 Mg Cap) 100 mg PO BID [facility] Stop: 02/03/23 21:01 Last Admin: 02/03/23 08:35 Dose: 100 mg Duloxetine HCl (Duloxetine Hcl 60 Mg Cap) 60 mg PO DAILY [facility] Stop: 02/24/23 08:59 Last Admin: 02/03/23 08:34 Dose: 60 mg Erythromycin (Erythromycin Op Oint 5 Mg/Gm 3.5 Gm Tube) 1 appln OPL BID [facility] Stop: 02/03/23 20:59 Last Admin: 02/03/23 08:35 Dose: 1 appln Furosemide (Furosemide 80 Mg Tab) 80 mg PO BID [facility] Stop: 02/23/23 20:59 Last Admin: 02/03/23 08:33 Dose: 80 mg Gabapentin (Gabapentin 300 Mg Cap) 300 mg PO QID [facility] Stop: 03/01/23 12:59 Last Admin: 02/03/23 12:08 Dose: 300 mg Glucagon (Glucagon For Inj 1 Mg Vial) 1 mg SQ UD PRN; Protocol PRN Reason: Hypoglycemia Protocol Stop: 02/23/23 17:08 Glucose (Glucose 10 Tab/Tube) 4 - 8 tab PO UD PRN; Protocol PRN Reason: Hypoglycemia Treatment Stop: 02/23/23 17:08 Glucose (Glucose 40% Gel 15 Gm Tube) 15 - 30 gm PO UD PRN; Protocol PRN Reason: Hypoglycemia Protocol Stop: 02/23/23 17:08 Cefepime HCl 2,000 mg/ (Dextrose) 120 mls @ 40 mls/hr IV Q8H [facility]; Protocol Stop: 02/03/23 19:00 Last Infusion: 02/03/23 11:42 Dose: Infused Insulin Aspart (Insulin Aspart Per Unit Charge) 0 units SC DAILY@1130,1630,2100 [facility]; Protocol Stop: 03/03/23 16:29 Last Admin: 02/03/23 12:10 Dose: 20 units Insulin Aspart (Insulin Aspart Per Unit Charge) 0 units SC DAILY@0730 [facility]; Protocol Stop: 03/04/23 07:29 Last Admin: 02/03/23 08:32 Dose: 47 units Insulin Glargine (Lantus Per Unit Charge) 65 units SC BID [facility]; Protocol Stop: 03/04/23 08:59 Last Admin: 02/03/23 08:31 Dose: 65 units Levothyroxine Sodium (Levothyroxine Sodium 125 Mcg Tablet) 250 mcg PO DAILYBB [facility] Stop: 02/24/23 06:29 Last Admin: 02/03/23 05:44 Dose: 250 mcg Lidocaine (Lidocaine 5% 1 Patch) 1 patch TD HS [facility] Stop: 02/27/23 20:59 Last Admin: 02/02/23 20:58 Dose: 1 patch Magnesium Hydroxide (Magnesium Hydroxide Susp 30 Ml Udc) 30 ml PO Q12H PRN PRN Reason: Constipation Stop: 02/23/23 13:18 Last Admin: 01/28/23 09:20 Dose: 30 ml Magnesium Oxide (Magnesium Oxide 400 Mg Tab) 400 mg PO DAILY [facility] Stop: 02/24/23 08:59 Last Admin: 02/03/23 08:34 Dose: 400 mg Metolazone (Metolazone 2.5 Mg Tablet) 2.5 mg PO MoWe@0900 [facility] Stop: 02/25/23 08:59 Last Admin: 01/26/23 07:47 Dose: 2.5 mg Metoprolol Succinate (Metoprolol Succ 50mg Ext Rel Tab) 100 mg PO BID [facility] Stop: 02/23/23 20:59 Last Admin: 02/03/23 08:34 Dose: Not Given Miconazole Nitrate (Miconazole Nitrate Powder 85 Gm) 1 appln TOP DAILY [facility] Stop: 02/24/23 08:59 Last Admin: 02/03/23 08:33 Dose: 1 appln Miscellaneous (Carbohydrates For Hypoglycemia ) 15 - 30 gm PO UD PRN PRN Reason: Hypoglycemia Protocol Stop: 02/23/23 17:08 Miscellaneous (Remove Lidoderm Patch) 1 each N/A DAILY [facility] Stop: 02/28/23 08:59 Last Admin: 02/03/23 08:35 Dose: 1 each Miscellaneous Information (Pharmacy Glycemic Mgmt Consult) 1 each N/A UD PRN PRN Reason: Consult Stop: 02/23/23 17:08 Morphine Sulfate (Morphine Sulfate 2 Mg/Ml Carp) 2 mg IV Q4H PRN PRN Reason: Severe Pain (Scale 7, 8, 9,10) Stop: 02/11/23 11:56 Multivitamins/Minerals (Cerovite Adv Formula Tab) 1 tab PO BID [facility] Stop: 02/23/23 20:59 Last Admin: 02/03/23 08:34 Dose: 1 tab Nystatin (Nystatin Powder 15gm Btl) 1 appln EXT BID [facility] Stop: 02/23/23 20:59 Last Admin: 02/03/23 08:33 Dose: 1 appln Oxycodone HCl (Oxycodone Hcl Ir 5 Mg Tab (Immediate Release)) 5 mg PO Q6H PRN PRN Reason: Pain Stop: 02/07/23 20:29 Last Admin: 02/02/23 22:28 Dose: 5 mg Pantoprazole Sodium (Pantoprazole 40 Mg Tab) 40 mg PO QAM [facility] Stop: 02/24/23 08:59 Last Admin: 02/03/23 08:34 Dose: 40 mg Phenazopyridine HCl (Phenazopyridine Hcl 100 Mg Tab) 100 mg PO TID PRN PRN Reason: Dysuria Stop: 02/27/23 18:29 Last Admin: 01/30/23 09:13 Dose: 100 mg Polyethylene Glycol (Polyethylene (Miralax) 17 Gm Pack) 17 gm PO DAILY PRN PRN Reason: Constipation Stop: 02/23/23 13:18 Last Admin: 01/28/23 15:28 Dose: 17 gm Potassium Chloride (Potassium Chloride Crtab 20 Meq Tabcr) 40 meq PO MoWe@0900 [facility] Stop: 02/25/23 08:59 Last Admin: 02/02/23 09:07 Dose: 40 meq Potassium Chloride (Potassium Chloride Crtab 20 Meq Tabcr) 20 meq PO SuTuThFrSa@0900,2100 [facility] Stop: 02/23/23 20:59 Last Admin: 02/03/23 08:35 Dose: 20 meq Potassium Chloride (Potassium Chloride Crtab 20 Meq Tabcr) 20 meq PO MoWe@2100 [facility] Stop: 02/25/23 20:59 Last Admin: 02/02/23 21:02 Dose: 20 meq Sennosides (Senna 8.6 Mg Tab) 8.6 mg PO BID [facility] Stop: 02/23/23 20:59 Last Admin: 07/25/23 08:34 Dose: 8.6 mg Spironolactone (Spironolactone 25 Mg Tab) 25 mg PO DAILY [facility] Stop: 02/24/23 08:59 Last Admin: 02/03/23 08:33 Dose: 25 mg Vancomycin HCl (Vancomycin 25mg/Ml Fortified Oph Drops) 1 drops OPL QID [facility] Stop: 02/05/23 16:59 Last Admin: 02/03/23 12:11 Dose: 1 drops Vitamin D (Cholecalciferol 1,000 Units 25 Mcg Tab) 2,000 units PO DAILY [facility] Stop: 02/24/23 08:59 Last Admin: 02/03/23 08:34 Dose: 2,000 units
[2023-02-03] MEDS: DIGOXIN 0.125 MG TAB PO SCH (17:23)
[2023-02-03] MEDS: LIDOCAINE 5% 1 PATCH TD SCH (21:46)
[2023-02-03] MEDS: MoRPHine SULFATE 2 MG/ML CARP IV PRN (22:38)
[2023-02-04] MEDS: oxyCODONE HCL IR 5 MG TAB (IMMEDIATE RELEASE) PO PRN ×2 (03:03→10:03)
[2023-02-04] MEDS: LEVOTHYROXINE SODIUM 125 MCG TABLET PO SCH (05:57)
[2023-02-04] MEDS: LANTUS PER UNIT CHARGE SC SCH ×2 (09:02→22:08)
[2023-02-04] MEDS: INSULIN ASPART PER UNIT CHARGE SC SCH ×4 (09:02→22:07)
[2023-02-04] MEDS: allopurinoL 300 MG TAB PO SCH (09:10)
[2023-02-04] MEDS: buPROPion XL 300 MG TABCR PO SCH (09:10)
[2023-02-04] MEDS: APIXABAN 5 MG TABLET PO SCH ×2 (09:11→21:37)
[2023-02-04] MEDS: POTASSIUM CHLORIDE CRTAB 20 MEQ TABCR PO SCH (09:11)
[2023-02-04] MEDS: CHOLECALCIFEROL 1,000 UNITS 25 MCG TAB PO SCH (09:11)
[2023-02-04] MEDS: SENNA 8.6 MG TAB PO SCH ×2 (09:12→21:37)
[2023-02-04] MEDS: GABAPENTIN 300 MG CAP PO SCH ×4 (09:12→21:38)
[2023-02-04] MEDS: FUROSEMIDE 80 MG TAB PO SCH ×2 (09:12→21:39)
[2023-02-04] MEDS: METOPROLOL SUCC 50MG EXT REL TAB PO SCH ×2 (09:12→21:38)
[2023-02-04] MEDS: MAGNESIUM OXIDE 400 MG TAB PO SCH (09:13)
[2023-02-04] MEDS: ASPIRIN 81 MG ECTAB PO SCH (09:13)
[2023-02-04] MEDS: DULoxetine HCL 60 MG CAP PO SCH (09:13)
[2023-02-04] MEDS: PANTOprazole 40 MG TAB PO SCH (09:13)
[2023-02-04] MEDS: CEROVITE ADV FORMULA TAB PO SCH ×2 (09:14→21:38)
[2023-02-04] MEDS: SPIRONOLACTONE 25 MG TAB PO SCH (09:15)
[2023-02-04] MEDS: MICONAZOLE NITRATE POWDER 85 GM TOP SCH (09:16)
[2023-02-04] MEDS: MENTHOL-ZINC OXIDE 360 APPLN/120 GM TUBE EXT SCH ×2 (09:17→21:40)
[2023-02-04] MEDS: NYSTATIN POWDER 15GM BTL EXT SCH ×2 (09:17→21:40)
[2023-02-04] MEDS: ARTIFICIAL TEARS OP SCH ×4 (09:22→21:39)
[2023-02-04] MEDS: VANCOMYCIN 25MG/ML FORTIFIED OPH DROPS OPL SCH ×4 (09:55→22:09)
--- NOTE | 2023-02-04 10:11 | Nephrology Progress Note ---
Date of Service February 04, 2023 Assessment & Plan Admission and Anticipated Discharge Date Admission Date: January 24, 2023 Subjective Assessment & Plan (1) ALMA ROSA (acute kidney injury): 2 Hyponatremia-- Plan: slowly improving nonoliguric acute kidney injury on CKD 3A with baseline creatinine of 1.2-1.3 for an estimated GFR of about 55 mL/min. Renal function plateau'd at 2.2 creat, then drifted down down to plateau at 1.6 past 48 hrs. Suspicious for contrast-induced nephropathy given timing of change in function and its abruptness, unremarkable renal ultrasound, stable hemodynamics. Repeat UACM w/ bagley noted. mild hyponatremia emerging Creat seems to be slowly coming down. na better today. continue bagley as needed; from neph standpoint could d/c Daily basic metabolic panel Rec for discharge: 1 Continue lasix 80 mg po bid and potassium 20 meq daily. 2 50 mg daily spironolactone 3 permanently stop metolazone. managing 3 diuretics is very very difficult in CKD patients. 4 f/u nephrology within 1-2 week after discharge Subjective no interval events clinically. pain reasonably controlled this am. good appetite; no sob. Review of Systems Review of Systems: All systems reviewed & are unremarkable except as noted in Subjective Physical Exam Constitutional: well developed, well nourished, + obese, + frail appearing and cooperative; no acute distress Eyes: EOM intact bilaterally ENMT: Ears: + hearing impairment; no external ear abnormality Nose: no external nose abnormality Mouth: + dry oral mucous membranes and + edentulous Neck: no nuchal rigidity Respiratory: normal respiratory effort Auscultation: + diminished lung sounds and + crackles (bibasilar) Cardiovascular: Rate/Rhythm: regular rate and regular rhythm Gastrointestinal (Abdomen): Inspection/Auscultation: normal bowel sounds Percussion/Palpation: abdomen soft; abdomen nontender Musculoskeletal: Extremities:1+ edema Skin: no rashes, warm and dry Trauma: + evidence of skin trauma Results & Data Vital Signs (Past 12 Hours) Vital Signs Temp Pulse Pulse Resp BP Pulse Ox O2 Del Method 02/04/23 07:41 36.3 C L 80 16 120/63 95 Room Air 02/04/23 04:00 36.4 C L 71 18 106/65 94 Room Air 02/03/23 22:17 97 H 02/03/23 22:52 36.4 C L 78 18 109/53 L 93 Room Air
--- NOTE | 2023-02-04 11:59 | Pharmacy Report ---
Pharmacy Glycemic Short Note 2 - Date of Service February 04, 2023 - Glycemic Short BSG Results (Last 24 hours): 02/03/23 02/03/23 02/04/23 16:19 20:26 07:28 POC Glucose 163 H 122 H 194 H 02/04/23 11:04 POC Glucose 222 H OUTPATIENT ANTIDIABETIC REGIMEN: * Insulin glargine 70 units SC BID * Regular insulin 22 units SC TIDM plus SSI HbA1c 10.4% on 01/25/23 ASSESSMENT: 02/04/23 * Patient's BSGs yesterday were [phone] mg/dL. Patient received 213 units of insulin (130 units of basal and 83 units of bolus) * Fasting today is 194 mg/dL. * Increase basal to 70 units BID (8% increase) * Continue Novolog but tighten CR with breakfast as patient continues to trend upwards. 02/02/23 * Patient's BSGs yesterday were [phone] mg/dL. Patient received 209 units of insulin (120 units of basal and 89 units of bolus). * Fasting today is 169 mg/dL. Lunch was 245 mg/dL. * Yesterday trialed a tighter CR with breakfast and it was effective. Today, breakfast Novolog given late so most likely reason for elevated lunch BSG. * Fastings continue to be elevated so increase Lantus slightly. 01/30/23: * Patient received total of 178 units of insulin yesterday, of which 120 units were basal * Fasting BSG elevated at 231 mg/dL this AM - patient has been receiving 120 units of basal/day the last several days and fasting BSGs have been <160 mg/dL * Unclear reasoning for higher fasting blood sugar this AM. Unsure if snacking overnight. Will continue same basal insulin for today, may need to increase further tomorrow if still elevated * Tightened CF/CR this AM 01/27/23: * BSGs elevated yesterday, ranging 169-272 mg/dL * Received 173 units of insulin (120 units of which were basal) * Fasting BSG improved today at 147 mg/dL - will continue current basal * Carb ratio tightened yesterday, will tighten correction factor today 01/25/23: * 72 yo M with T2DM well known to our glycemic service admitted with AMS and UTI * Will utilize data from prior admissions to guide current regimen PLAN FOR INPATIENT GLYCEMIC CONTROL: * Basal insulin * Lantus 70 units SC BID * Bolus insulin * NovoLog per scale ACHS or Q6hrs while NPO * Goal Range: Low 120 mg/dL - High 150 mg/dL * Correction Factor: 8 mg/dL/unit * Nutritional / Prandial insulin per carb ratio of 1 unit per 2.5 grams CHO consumed (at breakfast, use ratio of 1)
[2023-02-04] MEDS: DIGOXIN 0.125 MG TAB PO SCH (17:12)
--- NOTE | 2023-02-04 18:39 | Hospitalist Progress Note ---
Date of Service February 04, 2023 Assessment & Plan (1) UTI (urinary tract infection): (2) Altered mental status: (3) Wound, open, finger: (4) Recurrent falls: (5) Persistent atrial fibrillation: (6) Diabetic peripheral neuropathy associated with type 2 diabetes mellitus: (7) COPD, moderate: (8) Pacemaker: (9) SALAS (obstructive sleep apnea): (10) Venous ulcers of both lower extremities: (11) Infection of eye due to methicillin resistant Staphylococcus aureus (MRSA): Plan Patient is a 72 yr old male presents from [facility] with AMS. UTI on urinalysis. 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 Pt follows with [facility] and his last appointment was on 01/09; noted five pound weight gain over the past two weeks. No leukocytosis; started on Unasyn in ED; await cultures and adjust. 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 Acute metabolic encephalopathy UTI --CT head:No acute intracranial abnormality. -Urine culture growing Pseudomonas, Stenotrophomonas -Blood cultures: 07/16: Coagulase-negative staph not lugdunensis--likely contaminant Has been on cefepime, added Levaquin. Now finished course Mental status back to baseline Appreciate ID input and recommendation ALMA ROSA on CKD III Contrast-induced nephropathy -Renal USD:No hydronephrosis. Mild bilateral renal cortical thinning. Cr 2.18>1.9>1.6 Hold diuretics Avoid nephrotoxic agents as able Received IV fluids Bladder scan as needed Appreciate nephrology input and recommendation Continue to monitor Renal function slowly improving and keep improving Kidney function has improved a lot and the patient is ready to be discharged Creatinine has improved to 1.44-we will continue furosemide with potassium supplement , spironolactone and metolazone is on hold Finger wound infection Finger wound culture growing MRSA, group B beta strep Added Daptomycin, continue cefepime as above Continue wound care And adjust medications based on ID recommendations Daptomycin can be discontinued and doxycycline will be added to finish the course up to 25th Antibiotics will be done by 25th Cellulitis of the fingers is better and controlled Left hip pain/Back Pain Mechanical fall --Hip X ray:No fracture or dislocation within the pelvis or hips. --Hip CT:Degenerative changes are seen without evidence of acute fracture. PT OT, fall precautions Pain is controlled Obtain lumbar CT-intramuscular hemorrhage within the portions of the left psoas, iliopsoas and iliac us muscle. Will get CT of the abdomen and pelvis to evaluate more bleeding as the patient is still having symptoms of pain involving the left thigh CT of the abdomen and pelvis did not show any sparing of hemorrhage Reassured about the pain in the left thigh which will improve eventually Hemoglobin remains stable and no evidence of any more bleeding repeat CBC tomorrow Combined systolic/diastolic CHF: Follows with [facility]; last appt --CXR:Cardiomegaly and mild congestive change. This is similar to the prior study. Monitor volume status, renal function Hold Metolazone, Lasix, Spironolactone due to ALMA ROSA Will need to restart Lasix when the kidney function improves No signs and or symptoms of fluid overload Venous ulcers: Numerous right foot and left hand 4th and 5th digits ulcers Follows with [facility]; last appt 01/14 [facility] records indicate to keep covered with Xeroform Continue Waffle boots Continue wound care Persistent atrial fibrillation: Pacemaker Continue Digoxin, Metoprolol, Eliquis COPD: SALAS: Continue CPAP at bedtime Hypothyroidism: Continue Levothyroxine Insulin-dependent diabetes mellitus with peripheral neuropathy: Diabetic Foot ulcers: Follows with wound clinic HbA1c 10.4 Continue insulin while hospitalized Monitor BGs HLD: Continue Atorvastatin Depression: PTSD: Continue Buspar Gout: Continue Allopurinol Code Status Full Code DVT Px: Eliquis Disposition Will need to go to rehab-awaiting rehab placement Admission and Anticipated Discharge Date Admission Date: January 24, 2023 Subjective Feels well tolerating diet Had a BM today Review of Systems Review of Systems: as above Physical Exam Physical Exam: sitting in chair, no acute distress, non toxic Respiratory: breathing comfortably on room air, no wheezing/rhonchi/rales Cardiovascular: regular rate and rhythm, no murmurs/rubs Gastrointestinal (Abdomen): soft, non tender Musculoskeletal: no edema Skin: chronic venous stasis changes Neurologic: awake, alert, spontaneously moving extremities Genitourinary: bagley is draining clear yellow urine Results & Data Results & Data Vital Signs (Past 12 Hours) Vital Signs Temp Pulse Pulse Resp BP Pulse Ox O2 Del Method 02/04/23 17:12 80 02/04/23 16:17 80 07/26/23 16:17 Room Air 02/04/23 15:18 36.3 C L 64 16 103/72 92 Room Air 02/04/23 11:38 77 02/04/23 07:41 36.3 C L 80 16 120/63 95 Room Air
[2023-02-04] MEDS: LIDOCAINE 5% 1 PATCH TD SCH (21:39)
[2023-02-05] MEDS: ACETAMINOPHEN 325 MG TAB PO PRN (03:43)
[2023-02-05] MEDS: oxyCODONE HCL IR 5 MG TAB (IMMEDIATE RELEASE) PO PRN (03:44)
[2023-02-05] MEDS: LEVOTHYROXINE SODIUM 125 MCG TABLET PO SCH (05:03)
[2023-02-05] MEDS: METOPROLOL SUCC 50MG EXT REL TAB PO SCH ×2 (07:50→20:47)
[2023-02-05] MEDS: FUROSEMIDE 80 MG TAB PO SCH ×2 (07:59→20:45)
[2023-02-05] MEDS: SPIRONOLACTONE 25 MG TAB PO SCH (07:59)
[2023-02-05] MEDS: SENNA 8.6 MG TAB PO SCH ×2 (08:46→20:45)
[2023-02-05] MEDS: APIXABAN 5 MG TABLET PO SCH ×2 (08:46→20:45)
[2023-02-05] MEDS: ARTIFICIAL TEARS OP SCH ×4 (08:46→20:47)
[2023-02-05] MEDS: CEROVITE ADV FORMULA TAB PO SCH ×2 (08:46→20:45)
[2023-02-05] MEDS: GABAPENTIN 300 MG CAP PO SCH ×4 (08:46→20:45)
[2023-02-05] MEDS: MAGNESIUM OXIDE 400 MG TAB PO SCH (08:47)
[2023-02-05] MEDS: allopurinoL 300 MG TAB PO SCH (08:47)
[2023-02-05] MEDS: DULoxetine HCL 60 MG CAP PO SCH (08:47)
[2023-02-05] MEDS: CHOLECALCIFEROL 1,000 UNITS 25 MCG TAB PO SCH (08:47)
[2023-02-05] MEDS: PANTOprazole 40 MG TAB PO SCH (08:47)
[2023-02-05] MEDS: POTASSIUM CHLORIDE CRTAB 20 MEQ TABCR PO SCH (08:47)
[2023-02-05] MEDS: ASPIRIN 81 MG ECTAB PO SCH (08:47)
[2023-02-05] MEDS: buPROPion XL 300 MG TABCR PO SCH (08:47)
[2023-02-05] MEDS: NYSTATIN POWDER 15GM BTL EXT SCH ×2 (08:48→20:47)
[2023-02-05] MEDS: MENTHOL-ZINC OXIDE 360 APPLN/120 GM TUBE EXT SCH ×2 (08:48→20:47)
[2023-02-05] MEDS: MICONAZOLE NITRATE POWDER 85 GM TOP SCH (08:48)
[2023-02-05] MEDS: INSULIN ASPART PER UNIT CHARGE SC SCH ×4 (08:53→20:46)
[2023-02-05] MEDS: LANTUS PER UNIT CHARGE SC SCH ×2 (08:53→20:57)
[2023-02-05] MEDS: VANCOMYCIN 25MG/ML FORTIFIED OPH DROPS OPL SCH ×2 (10:32→12:45)
[2023-02-05] MEDS: DIGOXIN 0.125 MG TAB PO SCH (17:17)
--- NOTE | 2023-02-05 20:26 | Hospitalist Progress Note ---
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 UTI on urinalysis. 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 Pt follows with [facility] and his last appointment was on 01/09; noted five pound weight gain over the past two weeks. No leukocytosis; started on Unasyn in ED; await cultures and adjust. 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 Acute metabolic encephalopathy UTI --CT head:No acute intracranial abnormality. -Urine culture growing Pseudomonas, Stenotrophomonas -Blood cultures: 07/16: Coagulase-negative staph not lugdunensis--likely contaminant Has been on cefepime, added Levaquin. Now finished course Mental status back to baseline Appreciate ID input and recommendation ALAM ROSA on CKD III Contrast-induced nephropathy -Renal USD:No hydronephrosis. Mild bilateral renal cortical thinning. Cr 2.18>1.9>1.6 Avoid nephrotoxic agents as able Appreciate nephrology input and recommendation Continue to monitor Renal function back to baseline Repeat BMP tomorrow Lasix and spironolactone resumed Metolazone permanently discontinued Finger wound infection Finger wound culture growing MRSA, group B beta strep Added Daptomycin, continue cefepime as above Continue wound care And adjust medications based on ID recommendations Daptomycin can be discontinued and doxycycline will be added to finish the course up to Finished antibiotic course 02/03 Cellulitis of the fingers is better and controlled Left hip pain/Back Pain Mechanical fall --Hip X ray:No fracture or dislocation within the pelvis or hips. --Hip CT:Degenerative changes are seen without evidence of acute fracture. PT OT, fall precautions Pain is controlled Obtain lumbar CT-intramuscular hemorrhage within the portions of the left psoas, iliopsoas and iliac us muscle. Will get CT of the abdomen and pelvis to evaluate more bleeding as the patient is still having symptoms of pain involving the left thigh CT of the abdomen and pelvis did not show any sparing of hemorrhage Reassured about the pain in the left thigh which will improve eventually Hemoglobin remains stable and no evidence of any more bleeding repeat CBC tomorrow Combined systolic/diastolic CHF: Follows with [facility]; last appt --CXR:Cardiomegaly and mild congestive change. This is similar to the prior study. Monitor volume status, renal function Metolazone discontinued continue lasix and spironolactone fluid status stable Venous ulcers: Numerous right foot and left hand 4th and 5th digits ulcers Follows with [facility]; last appt 01/14 OPT records indicate to keep covered with Xeroform Continue Waffle boots Continue wound care Persistent atrial fibrillation: Pacemaker Continue Digoxin, Metoprolol, Eliquis COPD: SALAS: Continue CPAP at bedtime Hypothyroidism: Continue Levothyroxine Insulin-dependent diabetes mellitus with peripheral neuropathy: Diabetic Foot ulcers: Follows with wound clinic HbA1c 10.4 Continue insulin while hospitalized Monitor BGs HLD: Continue Atorvastatin Depression: PTSD: Continue Buspar Gout: Continue Allopurinol Code Status Full Code DVT Px: Eliquis Disposition Will need to go to rehab-awaiting rehab placement Admission and Anticipated Discharge Date Admission Date: January 24, 2023 Subjective Feels well. Tolerating diet BP soft this morning and diuretics held No symptoms Review of Systems Review of Systems: as above Physical Exam Physical Exam: Laying in bed, pleasant and comfortable ENMT: no conjunctiva erythema Respiratory: Breathing comfortably, no wheezing/rhonchi Cardiovascular: regular rate and rhythm, no murmurs/rubs/gallops Gastrointestinal (Abdomen): soft, non tender Musculoskeletal: no edema Neurologic: awake, alert, spontaneously moving extremities Genitourinary: bagley catheter draining clear yellow urine Results & Data Results & Data Vital Signs (Past 12 Hours) Vital Signs Temp Pulse Pulse Resp BP BP Pulse Ox 02/05/23 19:35 36.5 C 101 H 16 99/64 L 93 02/05/23 17:17 94 H 02/05/23 15:16 36.3 C L 68 16 101/63 93 02/05/23 15:14 75 02/05/23 08:45 02/05/23 11:16 36.4 C L 74 18 93/59 L 95 O2 Del Method 02/05/23 19:35 Room Air 02/05/23 17:17 02/05/23 15:16 Room Air 02/05/23 15:14 02/05/23 08:45 Room Air 02/05/23 11:16 Room Air
[2023-02-05] MEDS: LIDOCAINE 5% 1 PATCH TD SCH (20:46)
[2023-02-06] MEDS: oxyCODONE HCL IR 5 MG TAB (IMMEDIATE RELEASE) PO PRN ×2 (02:30→20:29)
[2023-02-06] MEDS: ACETAMINOPHEN 325 MG TAB PO PRN ×2 (02:31→20:28)
[2023-02-06] MEDS: LEVOTHYROXINE SODIUM 125 MCG TABLET PO SCH (05:36)
[2023-02-06] MEDS: INSULIN ASPART PER UNIT CHARGE SC SCH ×4 (08:22→20:33)
[2023-02-06 08:35] LABS: Creatinine Clr Calc Pharmacy 60.8 ml/min; Est GFR (African American) 52.2 ml/min; Magnesium 1.9 mg/dl (1.7-2.4); Potassium 4.3 mmol/L (3.5-5.1)
[2023-02-06 09:35] LABS: Hematocrit (blood only) 38.3 % (42.0-52.0); Hemoglobin 12.6 g/dl (14.0-18.0); Mean Corpuscular Hgb Conc 32.9 g/dL (32.0-36.0); Mean Corpuscular Volume 85.1 fL (80.0-100.0); Mean Platelet Volume 11.6 fL (9.4-12.4); Platelet Count 156 K/uL (130-400); RDW Coefficient of Variation 16.3 % (11.5-14.5); RDW Standard Deviation 49.6 fL (36.4-46.3); White Blood Count 6.71 K/ul (4.8-10.8)
[2023-02-06] MEDS: GABAPENTIN 300 MG CAP PO SCH ×4 (09:51→20:31)
[2023-02-06] MEDS: SENNA 8.6 MG TAB PO SCH ×2 (09:51→20:32)
[2023-02-06] MEDS: CEROVITE ADV FORMULA TAB PO SCH ×2 (09:51→20:30)
[2023-02-06] MEDS: APIXABAN 5 MG TABLET PO SCH ×2 (09:52→20:32)
[2023-02-06] MEDS: CHOLECALCIFEROL 1,000 UNITS 25 MCG TAB PO SCH (09:52)
[2023-02-06] MEDS: METOPROLOL SUCC 50MG EXT REL TAB PO SCH ×2 (09:52→20:31)
[2023-02-06] MEDS: MAGNESIUM OXIDE 400 MG TAB PO SCH (09:52)
[2023-02-06] MEDS: PANTOprazole 40 MG TAB PO SCH (09:52)
[2023-02-06] MEDS: SPIRONOLACTONE 25 MG TAB PO SCH (09:52)
[2023-02-06] MEDS: buPROPion XL 300 MG TABCR PO SCH (09:53)
[2023-02-06] MEDS: DULoxetine HCL 60 MG CAP PO SCH (09:53)
[2023-02-06] MEDS: allopurinoL 300 MG TAB PO SCH (09:53)
[2023-02-06] MEDS: ARTIFICIAL TEARS OP SCH ×4 (09:53→20:30)
[2023-02-06] MEDS: ASPIRIN 81 MG ECTAB PO SCH (09:53)
[2023-02-06] MEDS: MENTHOL-ZINC OXIDE 360 APPLN/120 GM TUBE EXT SCH ×2 (09:53→20:31)
[2023-02-06] MEDS: POTASSIUM CHLORIDE CRTAB 20 MEQ TABCR PO SCH (09:53)
[2023-02-06] MEDS: NYSTATIN POWDER 15GM BTL EXT SCH ×2 (09:54→20:31)
[2023-02-06] MEDS: MICONAZOLE NITRATE POWDER 85 GM TOP SCH (09:54)
[2023-02-06] MEDS: LANTUS PER UNIT CHARGE SC SCH ×2 (10:08→20:33)
[2023-02-06] MEDS: MoRPHine SULFATE 2 MG/ML CARP IV PRN (10:08)
[2023-02-06] MEDS: FUROSEMIDE 80 MG TAB PO SCH ×2 (10:29→20:30)
--- NOTE | 2023-02-06 14:28 | Pharmacy Report ---
Pharmacy Glycemic Short Note 2 - Date of Service February 06, 2023 - Glycemic Short BSG Results (Last 24 hours): 02/05/23 02/05/23 02/06/23 16:35 20:35 06:58 Glucose 204 H POC Glucose 81 76 02/06/23 02/06/23 07:43 11:28 Glucose POC Glucose 214 H 154 H OUTPATIENT ANTIDIABETIC REGIMEN: * Insulin glargine 70 units SC BID * Regular insulin 22 units SC TIDM plus SSI HbA1c 10.4% on 01/25/23 ASSESSMENT: 02/06/23: * BSGs yesterday were [phone] mg/dl. Fasting BSG = 214 mg/dl. * Patient received 140 units of basal and 89 units of bolus insulin yesterday. * Will continue with basal 70 units BID for now since this has been his home dosing. * Since post-prandial BSGs dropped much lower at dinner and HS yesterday, Novolog carb ratio loosened with lunch, dinner and HS. 02/04/23 * Patient's BSGs yesterday were [phone] mg/dL. Patient received 213 units of insulin (130 units of basal and 83 units of bolus) * Fasting today is 194 mg/dL. * Increase basal to 70 units BID (8% increase) * Continue Novolog but tighten CR with breakfast as patient continues to trend upwards. 02/02/23 * Patient's BSGs yesterday were [phone] mg/dL. Patient received 209 units of insulin (120 units of basal and 89 units of bolus). * Fasting today is 169 mg/dL. Lunch was 245 mg/dL. * Yesterday trialed a tighter CR with breakfast and it was effective. Today, breakfast Novolog given late so most likely reason for elevated lunch BSG. * Fastings continue to be elevated so increase Lantus slightly. 01/30/23: * Patient received total of 178 units of insulin yesterday, of which 120 units were basal * Fasting BSG elevated at 231 mg/dL this AM - patient has been receiving 120 units of basal/day the last several days and fasting BSGs have been <160 mg/dL * Unclear reasoning for higher fasting blood sugar this AM. Unsure if snacking overnight. Will continue same basal insulin for today, may need to increase further tomorrow if still elevated * Tightened CF/CR this AM 01/27/23: * BSGs elevated yesterday, ranging 169-272 mg/dL * Received 173 units of insulin (120 units of which were basal) * Fasting BSG improved today at 147 mg/dL - will continue current basal * Carb ratio tightened yesterday, will tighten correction factor today 01/25/23: * 72 yo M with T2DM well known to our glycemic service admitted with AMS and UTI * Will utilize data from prior admissions to guide current regimen PLAN FOR INPATIENT GLYCEMIC CONTROL: * Basal insulin * Lantus 70 units SC BID * Bolus insulin * NovoLog per scale ACHS or Q6hrs while NPO * Goal Range: Low 120 mg/dL - High 150 mg/dL * Correction Factor: 8 mg/dL/unit * Nutritional / Prandial insulin per carb ratio of 1 unit per 3.5 grams CHO consumed (at breakfast, use ratio of 1)
--- NOTE | 2023-02-06 16:30 | Hospitalist Progress Note ---
Date of Service February 06, 2023 Assessment & Plan (1) UTI (urinary tract infection): (2) Altered mental status: (3) Wound, open, finger: (4) Recurrent falls: (5) Persistent atrial fibrillation: (6) Diabetic peripheral neuropathy associated with type 2 diabetes mellitus: (7) COPD, moderate: (8) Pacemaker: (9) SALAS (obstructive sleep apnea): (10) Venous ulcers of both lower extremities: (11) Infection of eye due to methicillin resistant Staphylococcus aureus (MRSA): Plan Patient is a 72 yr old male presents from [facility] with AMS. UTI on urinalysis. 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 Pt follows with [facility] and his last appointment was on 01/09; noted five pound weight gain over the past two weeks. No leukocytosis; started on Unasyn in ED; await cultures and adjust. 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 Acute metabolic encephalopathy UTI --CT head:No acute intracranial abnormality. -Urine culture growing Pseudomonas, Stenotrophomonas -Blood cultures: 07/16: Coagulase-negative staph not lugdunensis--likely contaminant Has been on cefepime, added Levaquin. Now finished course Mental status back to baseline Appreciate ID input and recommendation ALMA ROSA on CKD III Contrast-induced nephropathy -Renal USD:No hydronephrosis. Mild bilateral renal cortical thinning. Cr 2.18>1.9>1.6 Avoid nephrotoxic agents as able Appreciate nephrology input and recommendation Continue to monitor Renal function back to baseline Lasix and spironolactone resumed with hold parameters Metolazone permanently discontinued Finger wound infection Finger wound culture growing MRSA, group B beta strep Added Daptomycin, continue cefepime as above--> daptomycin discontinued and doxycyline added. finished antibiotic course 02/03 Left hip pain/Back Pain Mechanical fall --Hip X ray:No fracture or dislocation within the pelvis or hips. --Hip CT:Degenerative changes are seen without evidence of acute fracture. PT OT, fall precautions Pain is controlled Obtain lumbar CT-intramuscular hemorrhage within the portions of the left psoas, iliopsoas and iliac us muscle. Will get CT of the abdomen and pelvis to evaluate more bleeding as the patient is still having symptoms of pain involving the left thigh CT of the abdomen and pelvis did not show any sparing of hemorrhage Reassured about the pain in the left thigh which will improve eventually Hemoglobin remains stable and no evidence of any more bleeding Combined systolic/diastolic CHF: Follows with [facility]; last appt --CXR:Cardiomegaly and mild congestive change. This is similar to the prior study. Monitor volume status, renal function Metolazone discontinued continue lasix and spironolactone with hold parameters fluid status stable Venous ulcers: Numerous right foot and left hand 4th and 5th digits ulcers Follows with [facility]; last appt 01/14 OPT records indicate to keep covered with Xeroform Continue Waffle boots Continue wound care Persistent atrial fibrillation: Pacemaker Continue Digoxin, Metoprolol, Eliquis COPD: SALAS: Continue CPAP at bedtime Hypothyroidism: Continue Levothyroxine Insulin-dependent diabetes mellitus with peripheral neuropathy: Diabetic Foot ulcers: Follows with wound clinic HbA1c 10.4 Continue insulin while hospitalized Monitor BGs HLD: Continue Atorvastatin Depression: PTSD: Continue Buspar Gout: Continue Allopurinol Code Status Full Code DVT Px: Eliquis Disposition Will need to go to rehab-awaiting rehab placement Admission and Anticipated Discharge Date Admission Date: January 24, 2023 Subjective Waiting for placement No issues overnight Currently feels sleepy Review of Systems Review of Systems: as above Physical Exam Physical Exam: No acute distress, non toxic, sitting in chair having lunch ENMT: left eye with redness, some discharge Respiratory: breathing comfortably on room air, no wheezing/rhonchi/rales Cardiovascular: regular rate and rhythm, no murmurs/rubs/gallops Gastrointestinal (Abdomen): soft, non tender Musculoskeletal: No edema Skin: lower extremity venous stasis skin changes Neurologic: awake, alert, spontaneously moving extremities, drowsy but awake and eating lunch Results & Data Results & Data Vital Signs (Past 12 Hours) Vital Signs Temp Pulse Resp BP BP Pulse Ox O2 Del Method 02/06/23 15:24 36.3 C L 64 18 95/52 L 96 Room Air 02/06/23 09:18 Room Air 02/06/23 12:13 36.3 C L 69 20 93/56 L 97 Room Air 02/06/23 07:46 36.5 C 60 20 87/55 L 96 Room Air
[2023-02-06] MEDS: DIGOXIN 0.125 MG TAB PO SCH (17:38)
[2023-02-06] MEDS ORDERED: MELATONIN 3 MG TAB PO PRN (19:32)
[2023-02-06] MEDS: POLYETHYLENE (MIRALAX) 17 GM PACK PO PRN (20:28)
[2023-02-06] MEDS: LIDOCAINE 5% 1 PATCH TD SCH (20:32)
[2023-02-07 02:43] LABS: Appearance Urine Clear (Clear); Bacteria Urine Automated Negative (Negative); Bilirubin Urine Negative (Negative); Blood Urine Negative (Negative); Color Urine Yellow; Glucose Urine UA Negative (Negative); Ketones Urine Negative (Negative); Leukocyte Esterase Urine Negative (Negative); Nitrite Urine Negative (Negative); Protein Urine 1+ (Negative); RBC Urine Automated 0-4 /hpf (0-4); Specific Gravity Urine 1.012 (1.000-1.030); Urobilinogen Urine Negative (Negative); pH Urine 5.5 (4.5-7.5)
[2023-02-07] MEDS: LEVOTHYROXINE SODIUM 125 MCG TABLET PO SCH (06:30)
[2023-02-07] MEDS: SPIRONOLACTONE 25 MG TAB PO SCH (07:26)
[2023-02-07] MEDS: METOPROLOL SUCC 50MG EXT REL TAB PO SCH ×2 (07:27→20:33)
[2023-02-07] MEDS: FUROSEMIDE 80 MG TAB PO SCH ×2 (07:27→20:32)
[2023-02-07] MEDS: GABAPENTIN 300 MG CAP PO SCH ×4 (07:28→20:33)
[2023-02-07] MEDS: buPROPion XL 300 MG TABCR PO SCH (07:29)
[2023-02-07] MEDS: CEROVITE ADV FORMULA TAB PO SCH ×2 (07:29→20:33)
[2023-02-07] MEDS: SENNA 8.6 MG TAB PO SCH ×2 (07:30→20:33)
[2023-02-07] MEDS: PANTOprazole 40 MG TAB PO SCH (07:30)
[2023-02-07] MEDS: CHOLECALCIFEROL 1,000 UNITS 25 MCG TAB PO SCH (07:30)
[2023-02-07] MEDS: APIXABAN 5 MG TABLET PO SCH ×2 (07:30→20:32)
[2023-02-07] MEDS: POTASSIUM CHLORIDE CRTAB 20 MEQ TABCR PO SCH ×2 (07:31→07:34)
[2023-02-07] MEDS: MAGNESIUM OXIDE 400 MG TAB PO SCH (07:32)
[2023-02-07] MEDS: allopurinoL 300 MG TAB PO SCH (07:32)
[2023-02-07] MEDS: DULoxetine HCL 60 MG CAP PO SCH (07:32)
[2023-02-07] MEDS: ASPIRIN 81 MG ECTAB PO SCH (07:32)
[2023-02-07] MEDS: MICONAZOLE NITRATE POWDER 85 GM TOP SCH (07:33)
[2023-02-07] MEDS: MENTHOL-ZINC OXIDE 360 APPLN/120 GM TUBE EXT SCH ×2 (07:33→20:35)
[2023-02-07] MEDS: ARTIFICIAL TEARS OP SCH ×4 (07:33→20:35)
[2023-02-07] MEDS: NYSTATIN POWDER 15GM BTL EXT SCH ×2 (07:33→20:35)
[2023-02-07] MEDS: INSULIN ASPART PER UNIT CHARGE SC SCH ×4 (08:19→21:45)
[2023-02-07] MEDS: LANTUS PER UNIT CHARGE SC SCH ×2 (08:20→20:35)
[2023-02-07] MEDS ORDERED: VANCOMYCIN 25MG/ML FORTIFIED OPH DROPS OPL SCH (09:00)
[2023-02-07 09:11] LABS: Hematocrit (blood only) 41.7 % (42.0-52.0); Hemoglobin 13.4 g/dl (14.0-18.0); Mean Corpuscular Hemoglobin 28.1 pg (25.0-34.0); Mean Corpuscular Hgb Conc 32.1 g/dL (32.0-36.0); Mean Corpuscular Volume 87.4 fL (80.0-100.0); Mean Platelet Volume 11.4 fL (9.4-12.4); Platelet Count 156 K/uL (130-400); RDW Coefficient of Variation 16.8 % (11.5-14.5); RDW Standard Deviation 51.3 fL (36.4-46.3); Red Blood Count 4.77 M/uL (4.70-6.10); White Blood Count 5.78 K/ul (4.8-10.8)
[2023-02-07 09:24] LABS: BUN Creatinine Ratio 36.2 (10-20); Calcium 10.1 mg/dl (8.6-10.3); Creatinine Clr Calc Pharmacy 63.2 ml/min; Est GFR (African American) 54.3 ml/min; Est GFR (Non-African American) 46.9 ml/min; Potassium 4.4 mmol/L (3.5-5.1)
[2023-02-07] MEDS: VANCOMYCIN 25MG/ML FORTIFIED OPH DROPS OPL SCH ×4 (09:52→20:30)
[2023-02-07] MEDS: DIGOXIN 0.125 MG TAB PO SCH (15:06)
--- NOTE | 2023-02-07 16:42 | Hospitalist Progress Note ---
Date of Service February 07, 2023 Assessment & Plan (1) UTI (urinary tract infection): (2) Altered mental status: (3) Wound, open, finger: (4) Recurrent falls: (5) Persistent atrial fibrillation: (6) Diabetic peripheral neuropathy associated with type 2 diabetes mellitus: (7) COPD, moderate: (8) Pacemaker: (9) SALAS (obstructive sleep apnea): (10) Venous ulcers of both lower extremities: (11) Infection of eye due to methicillin resistant Staphylococcus aureus (MRSA): Plan Patient is a 72 yr old male presents [place] [facility] [place] with [place]MS. UTI on urinalysis. 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 Pt follows with [facility] and his last appointment was on 01/09; noted five pound weight gain over the past two weeks. No leukocytosis; started on Unasyn in ED; await cultures and adjust. 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 Acute metabolic encephalopathy UTI --CT head:No acute intracranial abnormality. -Urine culture growing Pseudomonas, Stenotrophomonas -Blood cultures: 07/16: Coagulase-negative staph not lugdunensis--likely contaminant Has been on cefepime, added Levaquin. Now finished course Mental status back to baseline Appreciate ID input and recommendation ALMA ROSA on CKD III Contrast-induced nephropathy -Renal USD:No hydronephrosis. Mild bilateral renal cortical thinning. Cr 2.18>1.9>1.6 Avoid nephrotoxic agents as able Appreciate nephrology input and recommendation Continue to monitor Renal function back to baseline Lasix and spironolactone resumed with hold parameters Metolazone permanently discontinued Finger wound infection Finger wound culture growing MRSA, group B beta strep Added Daptomycin, continue cefepime as above--> daptomycin discontinued and doxycyline added. finished antibiotic course 02/03 Left hip pain/Back Pain Mechanical fall --Hip X ray:No fracture or dislocation within the pelvis or hips. --Hip CT:Degenerative changes are seen without evidence of acute fracture. PT OT, fall precautions Pain is controlled Obtain lumbar CT-intramuscular hemorrhage within the portions of the left psoas, iliopsoas and iliac us muscle. Will get CT of the abdomen and pelvis to evaluate more bleeding as the patient is still having symptoms of pain involving the left thigh CT of the abdomen and pelvis did not show any sparing of hemorrhage Reassured about the pain in the left thigh which will improve eventually Hemoglobin remains stable and no evidence of any more bleeding Combined systolic/diastolic CHF: Follows with [facility]; last appt --CXR:Cardiomegaly and mild congestive change. This is similar to the prior study. Monitor volume status, renal function Metolazone discontinued continue lasix and spironolactone with hold parameters fluid status stable Venous ulcers: Numerous right foot and left hand 4th and 5th digits ulcers Follows with [facility]; last appt 01/14 [facility] records indicate to keep covered with Xeroform Continue Waffle boots Continue wound care Persistent atrial fibrillation: Pacemaker Continue Digoxin, Metoprolol, Eliquis COPD: SALAS: Continue CPAP at bedtime Hypothyroidism: Continue Levothyroxine Insulin-dependent diabetes mellitus with peripheral neuropathy: Diabetic Foot ulcers: Follows with wound clinic HbA1c 10.4 Continue insulin while hospitalized Monitor BGs HLD: Continue Atorvastatin Depression: PTSD: Continue Buspar Gout: Continue Allopurinol Code Status Full Code DVT Px: Eliquis Disposition Will need to go to rehab-awaiting rehab placement Admission and Anticipated Discharge Date Admission Date: January 24, 2023 Subjective Yesterday got up without assistance, walked from chair around his bed. Leg got caught on bed and his knees "gave out" and he fell. Did not strike his head. Currently with no pain or other complaint. Tolerating diet. Having regular bowel movements. Not sleeping well--"off/on". Agreeable for trial of melatonin No difficulty voiding after removal of bagley Review of Systems Review of Systems: as above Physical Exam Physical Exam: Appears well. No acute distress, pleasant and comfortable Respiratory: Breathing on room air, no wheezing/rhonchi/rales Cardiovascular: Regular rate and rhythm, no murmurs/rubs Gastrointestinal (Abdomen): soft, non tender, non distended Musculoskeletal: no edema Skin: chronic venostasis skin changes (hyperpigmented, scaly) Neurologic: awake, alert, spontaneously moving extremities Results & Data Results & Data Vital Signs (Past 12 Hours) Vital Signs Temp Pulse Pulse Resp BP Pulse Ox O2 Del Method 02/07/23 15:32 81 02/07/23 15:21 36.3 C L 93 H 18 121/74 96 Room Air 02/07/23 15:06 84 02/07/23 11:41 36.5 C 80 18 103/57 L 96 Room Air 02/07/23 08:57 Room Air 02/07/23 07:29 36.4 C L 85 18 100/64 100 Room Air 02/07/23 07:23 92 H
[2023-02-07] MEDS: ACETAMINOPHEN 325 MG TAB PO PRN (20:30)
[2023-02-07] MEDS: MELATONIN 3 MG TAB PO SCH (20:30)
[2023-02-07] MEDS: oxyCODONE HCL IR 5 MG TAB (IMMEDIATE RELEASE) PO PRN (20:31)
[2023-02-07] MEDS: LIDOCAINE 5% 1 PATCH TD SCH (20:32)
[2023-02-08] MEDS: LEVOTHYROXINE SODIUM 125 MCG TABLET PO SCH (06:27)
[2023-02-08] MEDS: FUROSEMIDE 80 MG TAB PO SCH ×2 (08:23→20:05)
[2023-02-08] MEDS: PANTOprazole 40 MG TAB PO SCH (08:23)
[2023-02-08] MEDS: SPIRONOLACTONE 25 MG TAB PO SCH (08:23)
[2023-02-08] MEDS: NYSTATIN POWDER 15GM BTL EXT SCH ×2 (08:24→20:03)
[2023-02-08] MEDS: CHOLECALCIFEROL 1,000 UNITS 25 MCG TAB PO SCH (08:24)
[2023-02-08] MEDS: ASPIRIN 81 MG ECTAB PO SCH (08:24)
[2023-02-08] MEDS: MAGNESIUM OXIDE 400 MG TAB PO SCH (08:24)
[2023-02-08] MEDS: buPROPion XL 300 MG TABCR PO SCH (08:25)
[2023-02-08] MEDS: SENNA 8.6 MG TAB PO SCH ×2 (08:25→20:05)
[2023-02-08] MEDS: GABAPENTIN 300 MG CAP PO SCH ×4 (08:25→20:04)
[2023-02-08] MEDS: CEROVITE ADV FORMULA TAB PO SCH ×2 (08:26→20:06)
[2023-02-08] MEDS: APIXABAN 5 MG TABLET PO SCH ×2 (08:26→20:05)
[2023-02-08] MEDS: POTASSIUM CHLORIDE CRTAB 20 MEQ TABCR PO SCH (08:26)
[2023-02-08] MEDS: allopurinoL 300 MG TAB PO SCH (08:27)
[2023-02-08] MEDS: ARTIFICIAL TEARS OP SCH ×4 (08:27→20:06)
[2023-02-08] MEDS: DULoxetine HCL 60 MG CAP PO SCH (08:27)
[2023-02-08] MEDS: MENTHOL-ZINC OXIDE 360 APPLN/120 GM TUBE EXT SCH ×2 (08:28→20:04)
[2023-02-08] MEDS: MICONAZOLE NITRATE POWDER 85 GM TOP SCH (08:28)
[2023-02-08] MEDS: METOPROLOL SUCC 50MG EXT REL TAB PO SCH ×2 (08:28→20:02)
[2023-02-08] MEDS: LANTUS PER UNIT CHARGE SC SCH (08:28)
[2023-02-08] MEDS: VANCOMYCIN 25MG/ML FORTIFIED OPH DROPS OPL SCH ×4 (08:29→20:03)
[2023-02-08] MEDS: INSULIN ASPART PER UNIT CHARGE SC SCH ×4 (08:30→20:14)
--- NOTE | 2023-02-08 13:25 | Hospitalist Progress Note ---
Date of Service February 08, 2023 Assessment & Plan (1) UTI (urinary tract infection): (2) Altered mental status: (3) Wound, open, finger: (4) Recurrent falls: (5) Persistent atrial fibrillation: (6) Diabetic peripheral neuropathy associated with type 2 diabetes mellitus: (7) COPD, moderate: (8) Pacemaker: (9) SALAS (obstructive sleep apnea): (10) Venous ulcers of both lower extremities: (11) Infection of eye due to methicillin resistant Staphylococcus aureus (MRSA): Plan Patient is a 72 yr old male presents from [facility] with AMS. UTI on urinalysis. 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 Pt follows with [facility] and his last appointment was on 01/09; noted five pound weight gain over the past two weeks. No leukocytosis; started on Unasyn in ED; await cultures and adjust. 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 Acute metabolic encephalopathy UTI --CT head:No acute intracranial abnormality. -Urine culture growing Pseudomonas, Stenotrophomonas -Blood cultures: 07/16: Coagulase-negative staph not lugdunensis--likely contaminant Has been on cefepime, added Levaquin. Now finished course Mental status back to baseline Appreciate ID input and recommendation ALMA ROSA on CKD III Contrast-induced nephropathy -Renal USD:No hydronephrosis. Mild bilateral renal cortical thinning. Cr 2.18>1.9>1.6 Avoid nephrotoxic agents as able Appreciate nephrology input and recommendation Continue to monitor Renal function back to baseline Lasix and spironolactone resumed with hold parameters Metolazone permanently discontinued Finger wound infection Finger wound culture growing MRSA, group B beta strep Added Daptomycin, continue cefepime as above--> daptomycin discontinued and doxycyline added. finished antibiotic course 02/03 Left hip pain/Back Pain Mechanical fall --Hip X ray:No fracture or dislocation within the pelvis or hips. --Hip CT:Degenerative changes are seen without evidence of acute fracture. PT OT, fall precautions Pain is controlled Obtain lumbar CT-intramuscular hemorrhage within the portions of the left psoas, iliopsoas and iliac us muscle. Will get CT of the abdomen and pelvis to evaluate more bleeding as the patient is still having symptoms of pain involving the left thigh CT of the abdomen and pelvis did not show any sparing of hemorrhage Reassured about the pain in the left thigh which will improve eventually Hemoglobin remains stable and no evidence of any more bleeding Combined systolic/diastolic CHF: Follows with [facility]; last appt --CXR:Cardiomegaly and mild congestive change. This is similar to the prior study. Monitor volume status, renal function Metolazone discontinued continue lasix and spironolactone with hold parameters fluid status stable Venous ulcers: Numerous right foot and left hand 4th and 5th digits ulcers Follows with [facility]; last appt 01/14 [facility] records indicate to keep covered with Xeroform Continue Waffle boots Continue wound care Persistent atrial fibrillation: Pacemaker Continue Digoxin, Metoprolol, Eliquis COPD: SALAS: Continue CPAP at bedtime Hypothyroidism: Continue Levothyroxine Insulin-dependent diabetes mellitus with peripheral neuropathy: Diabetic Foot ulcers: Follows with wound clinic HbA1c 10.4 Continue insulin while hospitalized Monitor BGs HLD: Continue Atorvastatin Depression: PTSD: Continue Buspar Gout: Continue Allopurinol Code Status Full Code DVT Px: Eliquis Disposition Medically stable for discharge. Needs rehab placement Admission and Anticipated Discharge Date Admission Date: January 24, 2023 Subjective Reports he is not sleeping well. Only "on and off". Agreeable for increasing melatonin Otherwise he is doing well Tolerating a diet. Having regular bowel movements. Denies urinary symptoms Denies pains, just the "usual ache and pain, here and there" Review of Systems Review of Systems: as above Physical Exam Physical Exam: sitting in chair, pleasant, no acute distress ENMT: left eye with less seepage Respiratory: Breathing comfortably on room air, no wheezing/rhonchi/rales Cardiovascular: regular rate and rhythm, no murmurs/rubs Gastrointestinal (Abdomen): soft, non tender, non distended Musculoskeletal: trace edema Skin: chronic venous stasis skin changes (hyperpigmented) Neurologic: awake, alert, spontaneously moving extremities Results & Data Results & Data Vital Signs (Past 12 Hours) Vital Signs Temp Pulse Resp BP BP Pulse Ox O2 Del Method 02/08/23 12:24 36.5 C 61 20 104/67 92 Room Air 02/08/23 08:48 Room Air 02/08/23 08:00 36.7 C 65 20 100/62 94 Room Air 02/08/23 04:01 36.5 C 78 20 119/60 93 Room Air
[2023-02-08] MEDS: DIGOXIN 0.125 MG TAB PO SCH (16:44)
[2023-02-08] MEDS: MELATONIN 3 MG TAB PO SCH (20:05)
[2023-02-08] MEDS: LIDOCAINE 5% 1 PATCH TD SCH (20:06)
[2023-02-08] MEDS ORDERED: LANTUS PER UNIT CHARGE SC SCH (21:00)
[2023-02-09] MEDS ORDERED: ALBUMIN 25% 25 GM/100 ML VIAL IV ONE (03:10)
[2023-02-09 04:08] LABS: Basophils # (auto) 0.04 K/uL (0-0.2); Basophils % (auto) 0.7 %; Eosinophils # (auto) 0.14 K/uL (0-0.50); Eosinophils % (auto) 2.4 %; Hematocrit (blood only) 39.6 % (42.0-52.0); Hemoglobin 12.6 g/dl (14.0-18.0); Immature Granulocytes # (auto) 0.04 K/uL (0.01-0.20); Immature Granulocytes % (auto) 0.7 %; Lymphocytes # (auto) 0.95 K/uL (1.2-3.4); Lymphocytes % (auto) 16.2 %; Mean Corpuscular Hemoglobin 27.9 pg (25.0-34.0); Mean Corpuscular Hgb Conc 31.8 g/dL (32.0-36.0); Mean Corpuscular Volume 87.6 fL (80.0-100.0); Mean Platelet Volume 10.6 fL (9.4-12.4); Monocytes # (auto) 0.56 K/uL (0.11-0.59); Monocytes % (auto) 9.6 %; Neutrophils # (auto) 4.13 K/uL (1.40-6.50); Neutrophils % (auto) 70.4 %; Platelet Count 135 K/uL (130-400); RDW Coefficient of Variation 16.9 % (11.5-14.5); RDW Standard Deviation 52.6 fL (36.4-46.3); Red Blood Count 4.52 M/uL (4.70-6.10); White Blood Count 5.86 K/ul (4.8-10.8)
[2023-02-09 04:23] LABS: BUN Creatinine Ratio 35.3 (10-20); Calcium 9.9 mg/dl (8.6-10.3); Creatinine Clr Calc Pharmacy 70.4 ml/min; Est GFR (African American) 62.3 ml/min; Est GFR (Non-African American) 53.8 ml/min; Magnesium 1.9 mg/dl (1.7-2.4); Potassium 4.1 mmol/L (3.5-5.1)
[2023-02-09] MEDS: LEVOTHYROXINE SODIUM 125 MCG TABLET PO SCH (05:34)
[2023-02-09] MEDS: FUROSEMIDE 80 MG TAB PO SCH ×2 (07:51→20:02)
[2023-02-09] MEDS: CEROVITE ADV FORMULA TAB PO SCH ×2 (07:51→20:35)
[2023-02-09] MEDS: APIXABAN 5 MG TABLET PO SCH ×2 (07:52→20:35)
[2023-02-09] MEDS: GABAPENTIN 300 MG CAP PO SCH ×4 (07:52→20:34)
[2023-02-09] MEDS: SENNA 8.6 MG TAB PO SCH ×2 (07:52→20:36)
[2023-02-09] MEDS: POTASSIUM CHLORIDE CRTAB 20 MEQ TABCR PO SCH ×2 (07:53→07:58)
[2023-02-09] MEDS: buPROPion XL 300 MG TABCR PO SCH (07:53)
[2023-02-09] MEDS: allopurinoL 300 MG TAB PO SCH (07:54)
[2023-02-09] MEDS: DULoxetine HCL 60 MG CAP PO SCH (07:54)
[2023-02-09] MEDS: ASPIRIN 81 MG ECTAB PO SCH (07:57)
[2023-02-09] MEDS: ARTIFICIAL TEARS OP SCH ×4 (07:57→20:36)
[2023-02-09] MEDS: SPIRONOLACTONE 25 MG TAB PO SCH (07:57)
[2023-02-09] MEDS: MICONAZOLE NITRATE POWDER 85 GM TOP SCH (07:59)
[2023-02-09] MEDS: NYSTATIN POWDER 15GM BTL EXT SCH ×2 (07:59→20:36)
[2023-02-09] MEDS: CHOLECALCIFEROL 1,000 UNITS 25 MCG TAB PO SCH (07:59)
[2023-02-09] MEDS: PANTOprazole 40 MG TAB PO SCH (07:59)
[2023-02-09] MEDS: METOPROLOL SUCC 50MG EXT REL TAB PO SCH ×2 (08:00→20:02)
[2023-02-09] MEDS: MENTHOL-ZINC OXIDE 360 APPLN/120 GM TUBE EXT SCH ×2 (08:00→20:36)
[2023-02-09] MEDS: MAGNESIUM OXIDE 400 MG TAB PO SCH (08:00)
[2023-02-09] MEDS: VANCOMYCIN 25MG/ML FORTIFIED OPH DROPS OPL SCH ×4 (08:00→20:37)
[2023-02-09] MEDS: INSULIN ASPART PER UNIT CHARGE SC SCH ×4 (08:12→20:28)
[2023-02-09] MEDS: LANTUS PER UNIT CHARGE SC SCH ×2 (08:12→20:33)
--- NOTE | 2023-02-09 09:17 | Pharmacy Report ---
Pharmacy Glycemic Short Note 2 - Date of Service February 09, 2023 - Glycemic Short BSG Results (Last 24 hours): 02/08/23 02/08/23 02/08/23 11:26 16:39 16:40 Glucose POC Glucose 116 H 63 L* 62 L* 02/08/23 02/08/23 02/09/23 17:16 20:12 03:54 Glucose 154 H POC Glucose 87 123 H 02/09/23 07:58 Glucose POC Glucose 159 H OUTPATIENT ANTIDIABETIC REGIMEN: * Insulin glargine 70 units SC BID * Regular insulin 22 units SC TIDM plus SSI HbA1c 10.4% on 01/25/23 ASSESSMENT: 02/09 * Fasting BSG 154-159 this AM with 150 units basal on board. * Pre-dinner hypoglycemia noted yesterday (62) * BSGs have been trending a bit lower over the last 2 days, will lessen the prandial insulin dose somewhat today as well as prandial insulin doses. 02/06/23: * BSGs yesterday were 710-106-02-76 mg/dl. Fasting BSG = 214 mg/dl. * Patient received 140 units of basal and 89 units of bolus insulin yesterday. * Will continue with basal 70 units BID for now since this has been his home dosing. * Since post-prandial BSGs dropped much lower at dinner and HS yesterday, Novolog carb ratio loosened with lunch, dinner and HS. 02/04/23 * Patient's BSGs yesterday were 501-340-411-122 mg/dL. Patient received 213 units of insulin (130 units of basal and 83 units of bolus) * Fasting today is 194 mg/dL. * Increase basal to 70 units BID (8% increase) * Continue Novolog but tighten CR with breakfast as patient continues to trend upwards. PLAN FOR INPATIENT GLYCEMIC CONTROL: * Basal insulin * Lantus 65 units SC BID * Bolus insulin * NovoLog per scale ACHS or Q6hrs while NPO * Goal Range: Low 120 mg/dL - High 150 mg/dL * Correction Factor: 8 mg/dL/unit * Nutritional / Prandial insulin per carb ratio of 1 unit per 1.5 grams CHO consumed at breakfast; use ratio of 1 unit per 3.5 grams CHO consumed with lunch, dinner and HS
--- NOTE | 2023-02-09 13:46 | Hospitalist Progress Note ---
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 UTI on urinalysis. 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 Pt follows with [facility] and his last appointment was on 01/09; noted five pound weight gain over the past two weeks. No leukocytosis; started on Unasyn in ED; await cultures and adjust. 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 Acute metabolic encephalopathy UTI --CT head:No acute intracranial abnormality. -Urine culture growing Pseudomonas, Stenotrophomonas -Blood cultures: 07/16: Coagulase-negative staph not lugdunensis--likely contaminant Has been on cefepime, added Levaquin. Now finished course Mental status back to baseline Appreciate ID input and recommendation ALMA ROSA on CKD III Contrast-induced nephropathy -Renal USD:No hydronephrosis. Mild bilateral renal cortical thinning. Cr 2.18>1.9>1.6 Avoid nephrotoxic agents as able Appreciate nephrology input and recommendation Continue to monitor Renal function back to baseline Lasix and spironolactone resumed with hold parameters Metolazone permanently discontinued Finger wound infection Finger wound culture growing MRSA, group B beta strep Added Daptomycin, continue cefepime as above--> daptomycin discontinued and doxycyline added. finished antibiotic course 02/03 Left hip pain/Back Pain Mechanical fall --Hip X ray:No fracture or dislocation within the pelvis or hips. --Hip CT:Degenerative changes are seen without evidence of acute fracture. PT OT, fall precautions Pain is controlled Obtain lumbar CT-intramuscular hemorrhage within the portions of the left psoas, iliopsoas and iliac us muscle. Will get CT of the abdomen and pelvis to evaluate more bleeding as the patient is still having symptoms of pain involving the left thigh CT of the abdomen and pelvis did not show any sparing of hemorrhage Reassured about the pain in the left thigh which will improve eventually Hemoglobin remains stable and no evidence of any more bleeding Combined systolic/diastolic CHF: Follows with [facility]; last appt --CXR:Cardiomegaly and mild congestive change. This is similar to the prior study. Monitor volume status, renal function Metolazone discontinued continue lasix and spironolactone with hold parameters fluid status stable Venous ulcers: Numerous right foot and left hand 4th and 5th digits ulcers Follows with [facility]; last appt 01/14 OPT records indicate to keep covered with Xeroform Continue Waffle boots Continue wound care Persistent atrial fibrillation: Pacemaker Continue Digoxin, Metoprolol, Eliquis COPD: SALAS: Continue CPAP at bedtime Hypothyroidism: Continue Levothyroxine Insulin-dependent diabetes mellitus with peripheral neuropathy: Diabetic Foot ulcers: Follows with wound clinic HbA1c 10.4 Continue insulin while hospitalized Monitor BGs HLD: Continue Atorvastatin Depression: PTSD: Continue Buspar Gout: Continue Allopurinol Code Status Full Code DVT Px: Eliquis Disposition Medically stable for discharge. Needs rehab placement Admission and Anticipated Discharge Date Admission Date: January 24, 2023 Subjective Difficulty sleeping overnight despite melatonin 3mg. Otherwise no other issues Tolerating diet Denies bowel or bladder complaints Waiting for rehab placement Review of Systems Review of Systems: as above Physical Exam Physical Exam: Laying in bed, with eyes closed, easily awakened, answers questions appropriately, pleasant Respiratory: Breathing comfortably on room air, no wheezing/rhonchi/rales Cardiovascular: regular rate and rhythm, no murmurs/rubs Gastrointestinal (Abdomen): soft, non tender Musculoskeletal: no edema Skin: lower extremity skin is hyperpigmented, thickened, not erythematous Neurologic: awake, alert, answers questions appropriately, spontaneously moving extremities Results & Data Results & Data Vital Signs (Past 12 Hours) Vital Signs Temp Pulse Pulse Resp BP BP Pulse Ox 02/09/23 11:28 36.3 C L 81 18 107/58 L 97 02/09/23 08:10 36.5 C 69 18 112/68 97 02/09/23 07:39 02/09/23 06:53 90 02/09/23 05:34 101/68 02/09/23 02:57 36.6 C 92 H 20 86/47 L 92 O2 Del Method 02/09/23 11:28 Room Air 02/09/23 08:10 Room Air 02/09/23 07:39 Room Air 02/09/23 06:53 02/09/23 05:34 02/09/23 02:57 Room Air
[2023-02-09] MEDS: DIGOXIN 0.125 MG TAB PO SCH (16:14)
--- NOTE | 2023-02-09 20:10 | Communication Note ---
Date of Service: February 09, 2023
[2023-02-09] MEDS: LIDOCAINE 5% 1 PATCH TD SCH (20:34)
[2023-02-09] MEDS ORDERED: MELATONIN 3 MG TAB PO SCH (21:00)
[2023-02-10] MEDS ORDERED: MAGNESIUM SULFATE / D5W 1 GM/100 ML BAG IV ONE (04:21)
[2023-02-10] MEDS ORDERED: METOPROLOL SUCC 50MG EXT REL TAB PO SCH (04:25)
[2023-02-10] MEDS: LEVOTHYROXINE SODIUM 125 MCG TABLET PO SCH (05:56)
[2023-02-10 06:12] LABS: Basophils # (auto) 0.04 K/uL (0-0.2); Basophils % (auto) 0.8 %; Eosinophils # (auto) 0.15 K/uL (0-0.50); Eosinophils % (auto) 2.9 %; Hematocrit (blood only) 38.7 % (42.0-52.0); Hemoglobin 12.3 g/dl (14.0-18.0); Immature Granulocytes # (auto) 0.04 K/uL (0.01-0.20); Immature Granulocytes % (auto) 0.8 %; Lymphocytes # (auto) 0.96 K/uL (1.2-3.4); Lymphocytes % (auto) 18.4 %; Mean Corpuscular Hemoglobin 27.6 pg (25.0-34.0); Mean Corpuscular Hgb Conc 31.8 g/dL (32.0-36.0); Mean Corpuscular Volume 86.8 fL (80.0-100.0); Mean Platelet Volume 11.4 fL (9.4-12.4); Monocytes # (auto) 0.67 K/uL (0.11-0.59); Monocytes % (auto) 12.8 %; Neutrophils # (auto) 3.36 K/uL (1.40-6.50); Neutrophils % (auto) 64.3 %; Platelet Count 138 K/uL (130-400); RDW Coefficient of Variation 17.1 % (11.5-14.5); RDW Standard Deviation 53.1 fL (36.4-46.3); Red Blood Count 4.46 M/uL (4.70-6.10); White Blood Count 5.22 K/ul (4.8-10.8)
[2023-02-10 06:14] LABS: BUN Creatinine Ratio 31.9 (10-20); Calcium 9.7 mg/dl (8.6-10.3); Creatinine Clr Calc Pharmacy 65.3 ml/min; Est GFR (African American) 56.6 ml/min; Est GFR (Non-African American) 48.9 ml/min; Magnesium 2.1 mg/dl (1.7-2.4); Potassium 4.5 mmol/L (3.5-5.1)
[2023-02-10] MEDS: SENNA 8.6 MG TAB PO SCH (08:46)
[2023-02-10] MEDS: POTASSIUM CHLORIDE CRTAB 20 MEQ TABCR PO SCH (08:46)
[2023-02-10] MEDS: SPIRONOLACTONE 25 MG TAB PO SCH (08:46)
[2023-02-10] MEDS: CEROVITE ADV FORMULA TAB PO SCH (08:46)
[2023-02-10] MEDS: DULoxetine HCL 60 MG CAP PO SCH (08:47)
[2023-02-10] MEDS: PANTOprazole 40 MG TAB PO SCH (08:47)
[2023-02-10] MEDS: GABAPENTIN 300 MG CAP PO SCH ×2 (08:47→12:28)
[2023-02-10] MEDS: APIXABAN 5 MG TABLET PO SCH (08:47)
[2023-02-10] MEDS: ASPIRIN 81 MG ECTAB PO SCH (08:47)
[2023-02-10] MEDS: FUROSEMIDE 80 MG TAB PO SCH (08:47)
[2023-02-10] MEDS: CHOLECALCIFEROL 1,000 UNITS 25 MCG TAB PO SCH (08:47)
[2023-02-10] MEDS: buPROPion XL 300 MG TABCR PO SCH (08:48)
[2023-02-10] MEDS: MAGNESIUM OXIDE 400 MG TAB PO SCH (08:48)
[2023-02-10] MEDS: ARTIFICIAL TEARS OP SCH ×2 (08:48→12:28)
[2023-02-10] MEDS: MICONAZOLE NITRATE POWDER 85 GM TOP SCH (08:48)
[2023-02-10] MEDS: allopurinoL 300 MG TAB PO SCH (08:48)
[2023-02-10] MEDS: MENTHOL-ZINC OXIDE 360 APPLN/120 GM TUBE EXT SCH (08:49)
[2023-02-10] MEDS: NYSTATIN POWDER 15GM BTL EXT SCH (08:49)
[2023-02-10] MEDS: INSULIN ASPART PER UNIT CHARGE SC SCH ×2 (08:55→12:31)
[2023-02-10] MEDS ORDERED: LANTUS PER UNIT CHARGE SC SCH (09:00)
[2023-02-10] MEDS: VANCOMYCIN 25MG/ML FORTIFIED OPH DROPS OPL SCH ×2 (10:22→12:31)
--- NOTE | 2023-02-10 11:52 | Pharmacy Report ---
Pharmacy Glycemic Short Note 2 - Date of Service February 10, 2023 - Glycemic Short BSG Results (Last 24 hours): 02/09/23 02/09/23 02/10/23 16:48 20:11 05:36 Glucose 177 H POC Glucose 130 H 116 H 02/10/23 02/10/23 07:46 11:37 Glucose POC Glucose 244 H 193 H OUTPATIENT ANTIDIABETIC REGIMEN: * Insulin glargine 70 units SC BID * Regular insulin 22 units SC TIDM plus SSI HbA1c 10.4% on 01/25/23 ASSESSMENT: 02/10: * Fasting 172 (on lab), 244 POC this AM with 130 units of insulin- will increase to total 140 units/day * Prandial elevated from previous, although with higher fasting as well. Will continue current novolog parameters- monitor and tighten if trend continues. 02/09 * Fasting BSG 154-159 this AM with 150 units basal on board. * Pre-dinner hypoglycemia noted yesterday (62) * BSGs have been trending a bit lower over the last 2 days, will lessen the prandial insulin dose somewhat today as well as prandial insulin doses. 02/06/23: * BSGs yesterday were 984-914-00-76 mg/dl. Fasting BSG = 214 mg/dl. * Patient received 140 units of basal and 89 units of bolus insulin yesterday. * Will continue with basal 70 units BID for now since this has been his home dosing. * Since post-prandial BSGs dropped much lower at dinner and HS yesterday, Novolog carb ratio loosened with lunch, dinner and HS. 02/04/23 * Patient's BSGs yesterday were 141-122-909-122 mg/dL. Patient received 213 units of insulin (130 units of basal and 83 units of bolus) * Fasting today is 194 mg/dL. * Increase basal to 70 units BID (8% increase) * Continue Novolog but tighten CR with breakfast as patient continues to trend upwards. PLAN FOR INPATIENT GLYCEMIC CONTROL: * Basal insulin * Lantus 70 units SC BID * Bolus insulin * NovoLog per scale ACHS or Q6hrs while NPO * Goal Range: Low 120 mg/dL - High 150 mg/dL * Correction Factor: 8 mg/dL/unit * Nutritional / Prandial insulin per carb ratio of 1 unit per 1.5 grams CHO consumed at breakfast; use ratio of 1 unit per 3.5 grams CHO consumed with lunch, dinner and HS
--- NOTE | 2023-02-10 12:40 | Discharge Summary ---
Date of Service February 10, 2023 Principal Diagnosis UTI Confusion, resolved Frequent falls ALMA ROSA Chronic ulcers on feet Discharge Exam Patient was seen on the day of discharge. He feels well. No issues overnight Gen- obese, pleasant, comfortable HEENT- neck thick CV- regular rate and rhythm, no murmurs/rubs Pulm- no wheezing/rhonchi/rales Abd- soft Extr- no edema Skin- lower extremity is hyperpigmented Discharge Data Allergies Allergy/AdvReac Type Severity Reaction Status Date / Time No Known Allergies Allergy Verified 01/21/23 13:06 Consultations 01/24/23 14:58 ED Decision to Admit Stat 01/27/23 11:27 Consult Nephrology Routine 01/27/23 12:04 Consult Infectious Diseases Routine Ordered Studies 01/24/23 09:59 CT head/brain wo con Stat 01/24/23 10:00 CT facial bones w con Stat 01/25/23 16:36 CT hip LT wo con Routine 01/26/23 10:12 US Renal Bladder [US renal/blad retro comp] Routine 01/29/23 11:31 CT lumbar spine wo con Routine 01/31/23 15:26 CT Abd and Pelvis [CT abd pelvis wo con] Routine Hospital Course (1) UTI (urinary tract infection): (2) Altered mental status: (3) Wound, open, finger: (4) Recurrent falls: (5) Persistent atrial fibrillation: (6) Diabetic peripheral neuropathy associated with type 2 diabetes mellitus: (7) COPD, moderate: (8) Pacemaker: (9) SALAS (obstructive sleep apnea): (10) Venous ulcers of both lower extremities: (11) Infection of eye due to methicillin resistant Staphylococcus aureus (MRSA): Plan Patient is a 72 yr old male presents from [facility] with AMS. UTI on urinalysis. 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 Pt follows with [facility] and his last appointment was on 01/09; noted five pound weight gain over the past two weeks. No leukocytosis; started on Unasyn in ED; await cultures and adjust. 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 Acute metabolic encephalopathy UTI --CT head:No acute intracranial abnormality. -Urine culture growing Pseudomonas, Stenotrophomonas -Blood cultures: 07/16: Coagulase-negative staph not lugdunensis--likely contaminant Has been on cefepime, added Levaquin. Now finished course Mental status back to baseline Appreciate ID input and recommendation ALMA ROSA on CKD III Contrast-induced nephropathy -Renal USD:No hydronephrosis. Mild bilateral renal cortical thinning. Cr 2.18>1.9>1.6 Avoid nephrotoxic agents as able Appreciate nephrology input and recommendation Continue to monitor Renal function back to baseline Lasix and spironolactone resumed with hold parameters Metolazone permanently discontinued Follow up with Nephrology in 1-2 weeks after discharge Repeat BMP in 3-5 days to monitor renal function and electrolytes Finger wound infection Finger wound culture growing MRSA, group B beta strep Added Daptomycin, continue cefepime as above--> daptomycin discontinued and doxycyline added. Finished antibiotic course 02/03 Left hip pain/Back Pain Mechanical fall --Hip X ray:No fracture or dislocation within the pelvis or hips. --Hip CT:Degenerative changes are seen without evidence of acute fracture. Lumbar CT-intramuscular hemorrhage within the portions of the left psoas, iliopsoas and iliac us muscle. CT of the abdomen and pelvis without contrast again shows small-moderate left psoas, iliopsoas hematoma and redemonstrates portal vein thrombus but a non emergent liver protocol CT is recommended to evaluate for possible underlying liver lesion Needs non emergent outpatient Liver protocol CT Combined systolic/diastolic CHF: Follows with [facility] Diuretics managed by Nephrology here due to [place]ASIA -Discharged on Lasix 80mg PO BID, spironolactone 50mg daily. Metolazone permanently discontinued Venous ulcers: Numerous right foot and left hand 4th and 5th digits ulcers Follows with [facility]; last appt 01/14 Follows with wound clinic OPT records indicate to keep covered with Xeroform Continue Waffle boots Continue wound care Persistent atrial fibrillation: Pacemaker Continue Digoxin, Metoprolol, Eliquis COPD: SALAS: Previously on CPAP but now on night time oxygen. Reports his CPAP machine was taken away because he wasn't using it. Recommend repeat sleep study On 2.5L night time oxygen Hypothyroidism: Continue Levothyroxine Insulin-dependent diabetes mellitus with peripheral neuropathy: Diabetic Foot ulcers: HbA1c 10.4 Continue insulin while hospitalized Total Time Total Time Spent Total Time Spent (In Minutes): 40 Discharge Plan Discharge Items Patient Disposition: Transfer Residential Fac Reason For Visit: CONFUSION Discharge Diagnosis: UTI Confusion, resolved Frequent falls ALMA ROSA Chronic ulcers on feet Condition on Discharge: Good Activity: Resume your previous activity Non-emergency contact: Primary Care Provider, Belt Loop Machine Operator and [employer] Harvesting Supervisor Call non-emergency contact if: you have any medication questions Follow-up/Referrals: Cristal Merritt MD, PhD [Physician] - Keith Rose DO [Primary Care Provider] - Diet: Carb Consistent or DM2 and Heart Healthy Diet Texture: Easy to Chew Addtl Attending Provider Instructions: Uses 2.5L oxygen at night Repeat BMP in 3-5 days to monitor renal function and electrolytes Follow up with Nephrology in 1-2 weeks to follow up kidney function Follow up with Primary Belt Loop Machine Operator in 2-4 weeks to review medication changes made here Pending Studies at Discharge: No Stand-Alone Forms: My [facility] Dewy Rose [employer] [facility] Skilled Items Patient informed of condition?: Yes DNR: No Discharge Level of Care: Skilled Communicable Disease: No Discharge Prognosis: Stable Lines: None Urinary Catheter: No Medications and DC Order Prescriptions: New melatonin 3 mg Tablet 6 mg PO HS 14 Days Qty: 28 0RF spironolactone 25 mg Tablet 50 mg PO DAILY 30 Days Qty: 60 0RF potassium chloride 20 mEq Tablet,Er Particles/Crystals 20 meq PO QAM 14 Days Qty: 14 0RF potassium chloride 20 mEq Tablet,Er Particles/Crystals 40 meq PO MoWe@0900 14 Days Qty: 8 0RF Continued Novolin R FlexPen 100 unit/mL (3 mL) Insulin Pen 0 - 30 sliding scale dose SUBCUT ACHS Rx Instructions: 10-150 = 0 UNITS; 151-199 = 5 UNITS; 200-250 = 7 UNITS; 251-300 = 10 UNITS; 301-350 = 13 UNITS; 351-400 = 15 UNITS; 400+ = 30 UNITS AND CALL PROVIDER insulin glargine 100 unit/mL Solution 70 unit SUBCUT BID PreserVision AREDS-2 250-90-40-1 mg Capsule 1 tab PO BID multivitamin with minerals Tablet 1 tab PO DAILY furosemide 80 mg Tablet 80 mg PO BID Refresh Classic (PF) 1.4-0.6 % Dropperette 1 drp OPB QID miconazole nitrate 2 % Aerosol Powder 1 spray TOPICAL DAILY Iodosorb 0.9 % Gel 40 g TOPICAL DAILY menthol-zinc oxide [Calmoseptine] 0.44-20.6 % Ointment 1 applic TOPICAL BID vancomycin See Rx Instructions .ROUTE .COMPLEX Rx Instructions: Vancomycin Fortified 10mg/ml: Instill 1 drop into left eye four times daily. Start Date 01/20/23 - No end date on SEP tramadol 50 mg Tablet 100 mg PO .Q4-6H PRN (Reason: Pain) Novolin R Regular U100 Insulin 100 unit/mL solution 22 unit subcut TIDM sennosides [senna] 8.6 mg Tablet 8.6 mg PO BID acetaminophen [Tylenol] 325 mg Tablet 650 mg PO Q4 PRN (Reason: Fever Or Pain) magnesium oxide 420 mg Tablet 420 mg PO DAILY aspirin 81 mg Tablet,Delayed Release (Dr/Ec) 81 mg PO DAILY erythromycin 5 mg/gram (0.5 %) ointment 1 applic OPL BID Rx Instructions: 1/2 inch to 1 inch ribbon to left eye twice daily. Start Date 01/02/23 - No end date on SEP from [facility] levothyroxine 125 mcg Tablet 250 mcg PO DAILYBB lidocaine 5 % Adhesive Patch,Medicated 1 patch TOPICAL DAILY Rx Instructions: leave on most painful area for up to 12 hrs, then take off nitroglycerin [Nitrostat] 0.4 mg Tablet, Sublingual 0.4 mg sublingual DIRECTED PRN (Reason: Chest Pain) digoxin 125 mcg (0.125 mg) Tablet 125 mcg PO DAILY Rx Instructions: GIVE DAILY AT 1600 nystatin 100,000 unit/gram Powder 1 applic TOPICAL BID epinephrine 0.3 mg/0.3 mL Auto-Injector 0.3 mg IM DIRECTED PRN (Reason: Allergic Reaction) albuterol sulfate 90 mcg/actuation Hfa Aerosol Inhaler 2 puff INHALATION Q4 PRN (Reason: Shortness Of Breath Or Wheezing) Naphcon-A 0.025-0.3 % Drops 2 drp OPHTHALMIC (EYE) Q6 PRN (Reason: Eye Irritation) loratadine 10 mg Tablet 20 mg PO DAILY PRN (Reason: .allergies) Rx Instructions: two tablets daily, as needed for allergies, per [facility] duloxetine 60 mg capsule,delayed release(DR/EC) 60 mg PO DAILY cholecalciferol (vitamin D3) [Vitamin D3] 25 mcg (1,000 unit) Tablet 50 mcg PO DAILY apixaban 5 mg Tablet 5 mg PO Q12 atorvastatin 10 mg tablet 10 mg PO HS gabapentin 300 mg capsule 300 mg PO QID omeprazole 20 mg capsule,delayed release(DR/EC) 20 mg PO QAM allopurinol 300 mg tablet 300 mg PO DAILY metoprolol succinate 50 mg Tablet Extended Release 24 Hr 100 mg PO BID Qty: 60 0RF bupropion HCl 300 mg Tablet Extended Release 24 Hr 300 mg PO QAM Discontinued spironolactone 25 mg tablet 25 mg PO DAILY nitrofurantoin monohyd/m-cryst [Macrobid] 100 mg capsule 100 mg PO BID Qty: 20 0RF Rx Instructions: must administer with a meal/food. Start Date 01/16/23 - End Date 01/26/23 metolazone 2.5 mg Tablet 2.5 mg PO .[id number] Rx Instructions: Thu/Thu potassium chloride 20 mEq Tablet,Er Particles/Crystals See Rx Instructions .ROUTE .COMPLEX Rx Instructions: Take 40meq in the morning and 20meq in the evening on Thu/Thu potassium chloride 20 mEq tablet,ER particles/crystals 20 meq PO .[id number] Rx Instructions: //Thu/Sat/Sun Discharge Orders: Discharge Order (Routine); Ordered 02/10/23 Ordered By: Homero Carlson Admission Data Admit Date/Time: 01/24/23 13:19 Attending Provider: Homero Carlson Admit Provider: Marina Freeman Primary Care Provider: Keith Rose Other Providers: Marina Freeman ; [facility] ; [facility] ; Cristal Merritt ; Silvio Luz ; Alta Vasquez ; Abdelrahman Ledbetter I. ; Earnest Gregory II ; Khadijah Dukes ; Jcarlos Jin ; Bob Guthrie ; Yany Perez ; Dae Leone ; Mariah Vigil ; Edna Khan [place] Other Interventions: Discharge Summary Assessment (RN) Last Done: 02/10/23 12:17
== END 2023-02-10 13:27 | DRG 689 ==
LOC: ED 09:43 → SUATTDRO 13:19 → 2W 13:19

== ENCOUNTER 2023-03-15 02:57 | Inpatient (IN) ==
[2023-03-15] MEDS ORDERED: XYLOCAINE 1%/SOD BICARB 20 ML VIAL INFIL ONE (03:21)
[2023-03-15 03:56] LABS: Alanine Aminotransferase 19 U/L (7-52); Albumin Globulin Ratio 1.2 (0.9-2); Albumin Level 3.6 gm/dl (3.4-5.0); Alkaline Phosphatase 142 U/L (34-104); Anion Gap 11 (3-11); Aspartate Aminotransferase 31 U/L (13-39); Basophils # (auto) 0.04 K/uL (0.00-0.20); Basophils % (auto) 0.6 %; Bilirubin,Total 1.2 mg/dl (0.2-1.0); Blood Urea Nitrogen 59 mg/dl (6-23); Calcium 10.1 mg/dl (8.6-10.3); Carbon Dioxide 31 mmol/L (21-32); Chloride 92 mmol/L (98-107); Eosinophils # (auto) 0.28 K/uL (0.00-0.50); Eosinophils % (auto) 4.3 %; Est GFR (African American) 32.7 ml/min; Est GFR (Non-African American) 28.2 ml/min; Glucose 177 mg/dl (70-99(Fasting)); Hematocrit (blood only) 40.3 % (42.0-52.0); Hemoglobin 13.2 g/dl (14.0-18.0); Immature Granulocytes # (auto) 0.03 K/uL (0.01-0.20); Immature Granulocytes % (auto) 0.5 %; Lymphocytes # (auto) 1.01 K/uL (1.20-3.40); Lymphocytes % (auto) 15.4 %; Mean Corpuscular Hemoglobin 28.4 pg (25.0-34.0); Mean Corpuscular Hgb Conc 32.8 g/dL (32.0-36.0); Mean Corpuscular Volume 86.7 fL (80.0-100.0); Mean Platelet Volume 10.8 fL (9.4-12.4); Monocytes # (auto) 0.78 K/uL (0.11-0.59); Monocytes % (auto) 11.9 %; Neutrophils % (auto) 67.3 %; Platelet Count 150 K/uL (130-400); RDW Coefficient of Variation 17.2 % (11.5-14.5); RDW Standard Deviation 54.1 fL (36.4-46.3); Red Blood Count 4.65 M/uL (4.70-6.10); Sodium 134 mmol/L (136-145); Total Protein 6.6 gm/dl (6.0-8.3); White Blood Count 6.54 K/ul (4.8-10.8)
--- NOTE | 2023-03-15 06:33 | History & Physical Report ---
Date of Service March 15, 2023 Assessment & Plan (1) ALMA ROSA (acute kidney injury): Plan: 72-year-old male with past med significant for type 2 diabetes, chronic kidney stage III hyperlipidemia, hypothyroidism, diabetic retinopathy, hypothyroidism, obstructive sleep apnea and COPD overlap syndrome, combined systolic and diastolic CHF, pulmonary hypertension, chronic right-sided heart failure, abdominal aortic atherosclerosis, paroxysmal atrial fibrillation, tach ybradycardia syndrome s/p pacemaker, morbid obesity, GERD, gout arthropathy, osteoarthritis, psoriasis, pulmonary embolism, MRSA colonization, tremor, PTSD, recurrent falls, history of COVID, depression, who is at [facility] comes because of frequent falls and also found to have an ALMA ROSA ALMA ROSA on chronic kidney disease 3 Presented with creatinine of 2.2 Baseline creatinine 1.4/1.6 Getting gentle fluids We will follow repeat labs Frequent falls History of falls Says he is wheelchair-bound for last 1 and a month and getting the wheelchair is falling down PT OT May need rehab or residential placement Obstructive sleep apnea Currently only using oxygen the nighttime COPD Home inhalers History of combined systolic and diastolic CHF Continue home Lasix 80 mg twice daily and spironolactone and potassium supplements and metoprolol succinate Getting gentle fluids monitor for volume overload History of A-fib History of tachybradycardia syndrome s/p pacemaker On metoprolol succinate and digoxin and Eliquis Will monitor Diabetes Continue home Lantus insulin sliding scale Monitor blood sugars and HbA1c levels Hypothyroidism On Synthyroid. Hypertension On metoprolol, and diuretics Will monitor Hyperlipidemia on statin GERD on omeprazole Depression duloxetine and bupropion Gout On allopurinol Lower extremity superficial wounds Wound care DVT prophylaxis on Eliquis Disposition med/telemetry Full code as per my discussion with the patient History of Present Illness Chief Complaint: Frequent falls and ALMA ROSA Primary Care Provider: Keith Rose DO 72-year-old male with past med significant for type 2 diabetes, chronic kidney stage III hyperlipidemia, hypothyroidism, diabetic retinopathy, hypothyroidism, obstructive sleep apnea and COPD overlap syndrome, combined systolic and diastolic CHF, pulmonary hypertension, chronic right-sided heart failure, abdominal aortic atherosclerosis, paroxysmal atrial fibrillation, tachybradycardia syndrome s/p pacemaker, morbid obesity, GERD, gout arthropathy, osteoarthritis, psoriasis, pulmonary embolism, MRSA colonization, tremor, PTSD, recurrent falls, history of COVID, depression, who is at [facility] comes because of frequent falls and also found to have an ALMA ROSA . Patient states he is wheelchair-bound for 1 and half month but getting up to the wheelchair is falling frequently lately and has some bruises to his toes. Denies any hitting his head or loss of consciousness. Denies any headache. No earache or runny nose or sore throat. No cough. No fevers. No chest pain or shortness of breath. No nausea. No abdominal pain. Normal bowel and bladder movements. Past medical history as mentioned above Allergies Allergy/AdvReac Type Severity Reaction Status Date / Time No Known Allergies Allergy Verified 02/17/23 11:08 Home Medications Medication Instructions Recorded Confirmed Type Multivitamin And Mineral 1 tab PO DAILY 03/15/23 03/15/23 History albuterol 90 mcg/actuation aerosol 2 mcg inhalation Q4H PRN Shortness 03/15/23 03/15/23 History inhaler Of Breath Or Wheezing allopurinol 300 mg tablet 300 mg PO DAILY 03/15/23 03/15/23 History apixaban 5 mg tablet (Eliquis) 5 mg PO BID 03/15/23 03/15/23 History aspirin 81 mg tablet 81 mg PO DAILY 03/15/23 03/15/23 History atorvastatin 10 mg tablet 10 mg PO DAILY 03/15/23 03/15/23 History bupropion HCl 300 mg 24 hr tablet, 300 mg PO QAM 03/15/23 03/15/23 History extended release cadexomer iodine 0.9 % topical gel 40 g topical Q3D 03/15/23 03/15/23 History (Iodosorb) carboxymethylcellulose sodium 0.5 1 drp ophthalmic (eye) QID 03/15/23 03/15/23 History % eye drops (Refresh Tears) cetirizine 10 mg tablet 10 mg PO DAILY 03/15/23 03/15/23 History cholecalciferol (vitamin D3) 25 25 mcg PO DAILY 03/15/23 03/15/23 History mcg (1,000 unit) tablet digoxin 62.5 mcg (0.0625 mg) tablet 62.5 mcg PO DAILY 03/15/23 03/15/23 History duloxetine 60 mg capsule,delayed 60 mg PO DAILY 03/15/23 03/15/23 History release epinephrine 0.3 mg/0.3 mL 0.3 mg IM UD PRN Allergic Reaction 03/15/23 03/15/23 History injection syringe erythromycin 5 mg/gram (0.5 %) eye 0.5 inch ophthalmic (eye) BID 03/15/23 03/15/23 History ointment furosemide 80 mg tablet 80 mg PO BID 03/15/23 03/15/23 History gabapentin 300 mg capsule 300 mg PO QID 03/15/23 03/15/23 History insulin glargine 100 unit/mL (3 80 unit subcut BID 03/15/23 03/15/23 History mL) subcutaneous pen (Lantus Solostar U-100 Insulin) insulin regular human 100 unit/mL 20 unit subcut AC 03/15/23 03/15/23 History (3 mL) subcutaneous pen (Novolin R FlexPen) levothyroxine 125 mcg tablet 250 mcg PO DAILY 03/15/23 03/15/23 History lidocaine 5 % topical patch 1 patch topical DAILY 03/15/23 03/15/23 History magnesium oxide 400 mg PO DAILY 03/15/23 03/15/23 History metoprolol succinate 50 mg 100 mg PO BID 03/15/23 03/15/23 History tablet,extended release 24 hr nitroglycerin 0.4 mg sublingual 0.4 mg sublingual DIRECTED PRN 03/15/23 03/15/23 History tablet (Nitrostat) Chest Pain nystatin 100,000 unit/gram topical 1 applic topical BID 03/15/23 03/15/23 History cream omeprazole 20 mg capsule,delayed 20 mg PO DAILY 03/15/23 03/15/23 History release potassium chloride 20 mEq 20 meq PO DAILY 03/15/23 03/15/23 History tablet,extended release sennosides 8.6 mg tablet (Senokot) 8.6 mg PO BID 03/15/23 03/15/23 History spironolactone 50 mg tablet 50 mg PO DAILY 03/15/23 03/15/23 History tramadol 100 mg tablet 100 mg PO Q6H PRN Pain 03/15/23 03/15/23 History vancomycin 2.5 mg/0.25 mL in 0.9 % 1 ml intraocular UD 03/15/23 03/15/23 History sodium chlor (PF) injection syringe vit C 250 mg-vit E 90 mg-zinc 40 1 tab PO BID 03/15/23 03/15/23 History mg-copper 1 [id number] capsule (PreserVision AREDS-2) Past Med/Surg History Medical History (Updated 02/17/23 @ 11:58 by Cristal Kwan PA-C) Altered mental status Bifascicular block CAD (coronary artery disease) CKD (chronic kidney disease) stage 3, GFR 30-59 ml/min Claustrophobia COPD, moderate Entropion of left lower eyelid Fatty liver Gout History of fracture Thyroid cartilage in 2019 Interstitial lung disease Nephrolithiasis Osteoarthritis Pustular psoriasis Sarcoidosis possible- evaluated by pulmonary; felt no active sarcoidosis and would not merit steroid therapy given weight/diabetic state. 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 [employer] Pacer check 12/24/17 Status post incision and drainage Family History Mother Cancer Social History Smoking Status: Unknown if ever smoked Second Hand Exposure: No; Do You Dip or Chew Tobacco: No; Hx Alcohol Use: No Hx Substance Use: No Preferred Language: Upper Sorbian Communication Ability: Effective Visual Impairment: No Limitations Hearing Ability: Normal Pre Billing Specialist Required: No Beliefs That Will Affect Care: None marital status: Single Current Living Situation: Personal Care Facility Current Living Situation Comment: [facility] current occupational status: retired How many Children do You have: 1 How many Children do You have Comment: children are not involved with care much per pt Feels Safe at Home: Yes Diet: diabetic Diet Comment: FLUID RESTRICTION-1800ccs per pt report caffeine: No during the past year weight has: other Physical Activity Frequency: Does not Exercise Gender Identity: Male Assistive Devices: Oxygen - at Night and Scooter/Electric Scooter Review of Systems Review of Systems: All systems reviewed & are unremarkable except as noted in HPI & below Physical Exam Physical Exam: General- Not in distress. Head- atraumatic Eyes- PERRL, ENT- oropharynx clear Neck- supple, no JVD, Lungs- clear to auscultation no wheezing or crackles Heart- regular rhythm; no murmur, no gallop, . Abdomen- normal bowel sounds, soft, nontender, no distension. Extremities- b/l lower extremity edema present. bruises seen on toes. Neuro- alert, oriented x 3; PERRL, no facial palsy; no dysarthria; obeys commands, moves extermities. Results & Data Results & Data Vital Signs (Past 12 Hours) Vital Signs Temp Pulse Pulse Resp BP BP Pulse Ox 03/15/23 06:00 97 H 22 101/76 91 03/15/23 05:03 91 H 16 104/70 90 03/15/23 03:03 94 H 03/15/23 03:04 36.7 C 99 H 24 110/60 90 O2 Del Method O2 Flow Rate 03/15/23 06:00 Nasal Cannula 2 03/15/23 05:03 Nasal Cannula 2 03/15/23 03:03 03/15/23 03:04 Nasal Cannula 2 Diagnostic Findings Laboratory Results WBC 6.54 K/ul (4.8-10.8) 03/15/23 03:20 RBC 4.65 M/uL (4.70-6.10) L 03/15/23 03:20 Hgb 13.2 g/dl (14.0-18.0) L 03/15/23 03:20 Hct 40.3 % (42.0-52.0) L 03/15/23 03:20 MCV 86.7 fL (80.0-100.0) 03/15/23 03:20 MCH 28.4 pg (25.0-34.0) 03/15/23 03:20 MCHC 32.8 g/dL (32.0-36.0) 03/15/23 03:20 RDW Std Deviation 54.1 fL (36.4-46.3) H 03/15/23 03:20 RDW Coeff of Baldo 17.2 % (11.5-14.5) H 03/15/23 03:20 Plt Count 150 K/uL (130-400) 03/15/23 03:20 MPV 10.8 fL (9.4-12.4) 03/15/23 03:20 Immature Gran % (Auto) 0.5 % 03/15/23 03:20 Neut % (Auto) 67.3 % 03/15/23 03:20 Lymph % (Auto) 15.4 % 03/15/23 03:20 [place] % (Auto) 11.9 % 03/15/23 03:20 Eos % (Auto) 4.3 % 03/15/23 03:20 Baso % (Auto) 0.6 % 03/15/23 03:20 Neut # (Auto) 4.40 K/uL (1.40-6.50) 03/15/23 03:20 Lymph # (Auto) 1.01 K/uL (1.20-3.40) L 03/15/23 03:20 [place] # (Auto) 0.78 K/uL (0.11-0.59) H 03/15/23 03:20 Eos # (Auto) 0.28 K/uL (0.00-0.50) 03/15/23 03:20 Baso # (Auto) 0.04 K/uL (0.00-0.20) 03/15/23 03:20 Immature Gran # (Auto) 0.03 K/uL (0.01-0.20) 03/15/23 03:20 Sodium 134 mmol/L (136-145) L 03/15/23 03:20 Potassium 4.0 mmol/L (3.5-5.1) 03/15/23 03:20 Chloride 92 mmol/L (98-107) L 03/15/23 03:20 Carbon Dioxide 31 mmol/L (21-32) 03/15/23 03:20 Anion Gap 11 (3-11) 03/15/23 03:20 BUN 59 mg/dl (6-23) H 03/15/23 03:20 Creatinine 2.27 mg/dl (0.6-1.4) H 03/15/23 03:20 Est Cr Clr Drug Dosing Not Reportable 03/15/23 03:20 Est GFR ( Amer) 32.7 ml/min 03/15/23 03:20 Est GFR (Non-Af Amer) 28.2 ml/min 03/15/23 03:20 BUN/Creatinine Ratio 26.0 (10-20) H 03/15/23 03:20 Glucose 177 mg/dl (70-99(Fasting)) H 03/15/23 03:20 Calcium 10.1 mg/dl (8.6-10.3) 03/15/23 03:20 Total Bilirubin 1.2 mg/dl (0.2-1.0) H 03/15/23 03:20 AST 31 U/L (13-39) 03/15/23 03:20 ALT 19 U/L (7-52) 03/15/23 03:20 Alkaline Phosphatase 142 U/L (34-104) H 03/15/23 03:20 Total Protein 6.6 gm/dl (6.0-8.3) 03/15/23 03:20 Albumin 3.6 gm/dl (3.4-5.0) 03/15/23 03:20 Globulin 3.0 gm/dl (2.5-4.0) 03/15/23 03:20 Albumin/Globulin Ratio 1.2 (0.9-2) 03/15/23 03:20 ECG Additional Comments: ECG atrial paced rhythm with rate of 98. Right bundle branch block. Left anterior fascicular block. Bifascicular block Code Status & VTE Plan VTE Prophylaxis Plan VTE Prophylaxis will be ordered: Yes
[2023-03-15 06:44] LABS: Appearance Urine Clear (Clear); Bilirubin Urine Negative (Negative); Blood Urine Negative (Negative); Color Urine Yellow; Glucose Urine UA Trace (Negative); Ketones Urine Negative (Negative); Leukocyte Esterase Urine Negative (Negative); Nitrite Urine Negative (Negative); Protein Urine Negative (Negative); Urobilinogen Urine Negative (Negative)
--- NOTE | 2023-03-15 07:54 | Emergency Department Note ---
ED Provider Note History of Present Illness Chief Complaint: Fall Stated Complaint: FALLS/BILATERAL TOES INJURIES Time Seen by Provider: 03/15/23 03:09 Source: patient Mode of arrival: ambulatory Limitations: no limitations This patient is a 72-year-old male who presents to the emergency department via EMS for evaluation of multiple falls recently. Patient resides at [facility]. Patient states that this morning, he was trying to transfer himself to his wheelchair to go to the bathroom when he fell. He was unable to get up. He reports injuries to his toes which occurred when he was trying to stand. He has had multiple falls and states that they are due to weakness in his legs. He states that his legs give out on him. He denies striking his head. He denies any other injuries associated with the fall. He did sustain a laceration to the toe. Home Medications Medication Instructions Recorded Confirmed Type Multivitamin And Mineral 1 tab PO DAILY 03/15/23 03/15/23 History albuterol 90 mcg/actuation aerosol 2 mcg inhalation Q4H PRN Shortness 03/15/23 03/15/23 History inhaler Of Breath Or Wheezing allopurinol 300 mg tablet 300 mg PO DAILY 03/15/23 03/15/23 History apixaban 5 mg tablet (Eliquis) 5 mg PO BID 03/15/23 03/15/23 History aspirin 81 mg tablet 81 mg PO DAILY 03/15/23 03/15/23 History atorvastatin 10 mg tablet 10 mg PO DAILY 03/15/23 03/15/23 History bupropion HCl 300 mg 24 hr tablet, 300 mg PO QAM 03/15/23 03/15/23 History extended release cadexomer iodine 0.9 % topical gel 40 g topical Q3D 03/15/23 03/15/23 History (Iodosorb) carboxymethylcellulose sodium 0.5 1 drp ophthalmic (eye) QID 03/15/23 03/15/23 History % eye drops (Refresh Tears) cetirizine 10 mg tablet 10 mg PO DAILY 03/15/23 03/15/23 History cholecalciferol (vitamin D3) 25 25 mcg PO DAILY 03/15/23 03/15/23 History mcg (1,000 unit) tablet digoxin 62.5 mcg (0.0625 mg) tablet 62.5 mcg PO DAILY 03/15/23 03/15/23 History duloxetine 60 mg capsule,delayed 60 mg PO DAILY 03/15/23 03/15/23 History release epinephrine 0.3 mg/0.3 mL 0.3 mg IM UD PRN Allergic Reaction 03/15/23 03/15/23 History injection syringe erythromycin 5 mg/gram (0.5 %) eye 0.5 inch ophthalmic (eye) BID 03/15/23 03/15/23 History ointment furosemide 80 mg tablet 80 mg PO BID 03/15/23 03/15/23 History gabapentin 300 mg capsule 300 mg PO QID 03/15/23 03/15/23 History insulin glargine 100 unit/mL (3 80 unit subcut BID 03/15/23 03/15/23 History mL) subcutaneous pen (Lantus Solostar U-100 Insulin) insulin regular human 100 unit/mL 20 unit subcut AC 03/15/23 03/15/23 History (3 mL) subcutaneous pen (Novolin R FlexPen) levothyroxine 125 mcg tablet 250 mcg PO DAILY 03/15/23 03/15/23 History lidocaine 5 % topical patch 1 patch topical DAILY 03/15/23 03/15/23 History magnesium oxide 400 mg PO DAILY 03/15/23 03/15/23 History metoprolol succinate 50 mg 100 mg PO BID 03/15/23 03/15/23 History tablet,extended release 24 hr nitroglycerin 0.4 mg sublingual 0.4 mg sublingual DIRECTED PRN 03/15/23 03/15/23 History tablet (Nitrostat) Chest Pain nystatin 100,000 unit/gram topical 1 applic topical BID 03/15/23 03/15/23 History cream omeprazole 20 mg capsule,delayed 20 mg PO DAILY 03/15/23 03/15/23 History release potassium chloride 20 mEq 20 meq PO DAILY 03/15/23 03/15/23 History tablet,extended release sennosides 8.6 mg tablet (Senokot) 8.6 mg PO BID 03/15/23 03/15/23 History spironolactone 50 mg tablet 50 mg PO DAILY 03/15/23 03/15/23 History tramadol 100 mg tablet 100 mg PO Q6H PRN Pain 03/15/23 03/15/23 History vancomycin 2.5 mg/0.25 mL in 0.9 % 1 ml intraocular UD 03/15/23 03/15/23 History sodium chlor (PF) injection syringe vit C 250 mg-vit E 90 mg-zinc 40 1 tab PO BID 03/15/23 03/15/23 History mg-copper 1 [id number] capsule (PreserVision AREDS-2) Allergies Allergy/AdvReac Type Severity Reaction Status Date / Time No Known Allergies Allergy Verified 02/17/23 11:08 Past Med/Surg History Medical History Altered mental status Bifascicular block CAD (coronary artery disease) CKD (chronic kidney disease) stage 3, GFR 30-59 ml/min Claustrophobia COPD, moderate Entropion of left lower eyelid Fatty liver Gout History of fracture Thyroid cartilage in 2019 Interstitial lung disease Nephrolithiasis Osteoarthritis Pustular psoriasis Sarcoidosis possible- evaluated by pulmonary; felt no active sarcoidosis and would not merit steroid therapy given weight/diabetic state. 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 [employer] Pacer check 12/24/17 Status post incision and drainage Family History Mother Cancer Social History Smoking Status: Never smoker Second Hand Exposure: No; Do You Dip or Chew Tobacco: No; Hx Alcohol Use: No Hx Substance Use: No Preferred Language: Macedonian Communication Ability: Effective Visual Impairment: No Limitations Hearing Ability: Normal Hotel Housekeeper Required: No Beliefs That Will Affect Care: None marital status: Single Current Living Situation: Long-Term Current Living Situation Comment: [facility] current occupational status: retired How many Children do You have: 1 How many Children do You have Comment: children are not involved with care much per pt Other Information That Helps Us Care for You: No Feels Safe at Home: Yes Safety Concerns: Feels Safe At This Time Diet: diabetic Diet Comment: FLUID RESTRICTION-1800ccs per pt report caffeine: No during the past year weight has: other Physical Activity Frequency: Does not Exercise Gender Identity: Male Assistive Devices: Oxygen - at Night and Wheelchair Physical Exam Vital Signs Vital Signs - 24 hr 03/15/23 03:04 03/15/23 03:03 03/15/23 05:03 Temperature 36.7 C Temperature Source Oral Pulse Rate 99 H 94 H Pulse Rate [Right Finger] 91 H Pulse Rhythm [Right Finger] Regular Pulse Strength [Right Finger] Normal Respiratory Rate 24 16 Respiratory Effort / Characteristics Non-Labored Spontaneous Non-Labored Spontaneous Respiratory Depth Normal Normal Respiratory Pattern Regular Regular Blood Pressure 110/60 Blood Pressure [Right Arm] 104/70 Blood Pressure Mean 76 Blood Pressure Mean [Right Arm] 81 Pulse Oximetry 90 90 Oxygen Delivery Method Nasal Cannula Nasal Cannula Oxygen Flow Rate 2 2 Sepsis Recent Fever Within 48 Hours No Sepsis New/Unexplained Change in Mental Status No Sepsis Action Taken by Nursing No Action Required 03/15/23 06:00 03/15/23 07:00 03/15/23 07:25 Temperature Temperature Source Pulse Rate 97 H 99 H 95 H Pulse Rate [Right Finger] Pulse Rhythm [Right Finger] Pulse Strength [Right Finger] Respiratory Rate 22 20 Respiratory Effort / Characteristics Respiratory Depth Respiratory Pattern Blood Pressure 101/76 134/68 Blood Pressure [Right Arm] Blood Pressure Mean 84 90 Blood Pressure Mean [Right Arm] Pulse Oximetry 91 Oxygen Delivery Method Nasal Cannula Oxygen Flow Rate 2 Sepsis Recent Fever Within 48 Hours Sepsis New/Unexplained Change in Mental Status Sepsis Action Taken by Nursing VITALS: Vitals are noted on the nurse's note and reviewed by myself. GENERAL: This is a 73-year-old male, in no acute distress. SKIN: There is a 2 cm laceration to the flexor crease of the left fifth toe. HEAD: Normocephalic atraumatic. EARS: External auditory canals clear, tympanic membranes pearly dozier without erythema or effusion bilaterally. EYES: Pupils equal round and reactive to light and accommodation. HEART: Regular rate and rhythm without murmurs gallops or rubs. LUNGS: Clear to auscultation bilaterally without wheezes, rales or rhonchi. NEURO: Patient was alert and oriented to person place and time. Procedures Laceration Toe laceration: Site: lower extremity Side (If applicable): left Size (cm): 2 Description: linear Depth: simple, single layer Local Anesthetic: lidocaine 1% and with bicarb Amount of anesthesia used (mL): 3 Pre-repair: wound explored, irrigated extensively and deep structures intact Skin layer closed with: nylon Size (cm): 4-0 Number of sutures: 4 Course Administered Medications Acetaminophen (Acetaminophen 325 Mg Tab) 650 mg PO Q4H PRN PRN Reason: Pain or Fever Stop: 04/14/23 08:17 Last Admin: 03/21/23 03:40 Dose: 650 mg Documented By: Admin: 03/19/23 09:24 Dose: 650 mg Documented By: MTNando Admin: 03/15/23 22:55 Dose: 650 mg Documented By: JERRY Allopurinol (Allopurinol 300 Mg Tab) 300 mg PO DAILY OFE Stop: 04/14/23 08:59 Last Admin: 03/21/23 07:41 Dose: 300 mg Documented By: Admin: 03/20/23 08:57 Dose: 300 mg Documented By: MTNando Admin: 03/19/23 09:09 Dose: 300 mg Documented By: AZNando Admin: 03/18/23 10:46 Dose: 300 mg Documented By: Admin: 03/17/23 08:31 Dose: 300 mg Documented By: Admin: 03/16/23 10:05 Dose: 300 mg Documented By: Admin: 03/15/23 10:07 Dose: 300 mg Documented By: VINICIUS Apixaban (Apixaban 5 Mg Tablet) 5 mg PO BID OFE Stop: 04/14/23 08:59 Last Admin: 03/21/23 20:09 Dose: 5 mg Documented By: Admin: 03/21/23 09:08 Dose: 5 mg Documented By: Admin: 03/20/23 20:32 Dose: 5 mg Documented By: Admin: 03/19/23 20:06 Dose: 5 mg Documented By: Admin: 03/19/23 09:08 Dose: 5 mg Documented By: MTNando Admin: 03/18/23 20:52 Dose: 5 mg Documented By: Admin: 03/18/23 09:01 Dose: 5 mg Documented By: Admin: 03/17/23 20:48 Dose: 5 mg Documented By: RMZoe Admin: 03/17/23 08:34 Dose: 5 mg Documented By: Admin: 03/16/23 20:56 Dose: 5 mg Documented By: RMZoe Admin: 03/16/23 10:03 Dose: 5 mg Documented By: Admin: 03/15/23 22:39 Dose: 5 mg Documented By: Admin: 03/15/23 10:08 Dose: 5 mg Documented By: VINICIUS Artificial Tears (Artificial Tears) 1 drops OP QID OFE Stop: 04/14/23 08:59 Last Admin: 03/21/23 20:09 Dose: 1 drops Documented By: Admin: 03/21/23 18:08 Dose: 1 drops Documented By: Admin: 03/21/23 13:28 Dose: 1 drops Documented By: Admin: 03/21/23 07:42 Dose: 1 drops Documented By: Admin: 03/20/23 20:31 Dose: 1 drops Documented By: Admin: 03/20/23 18:04 Dose: 1 drops Documented By: Admin: 03/20/23 13:32 Dose: 1 drops Documented By: Admin: 03/20/23 08:57 Dose: 1 drops Documented By: Admin: 03/19/23 20:06 Dose: 1 drops Documented By: Admin: 03/19/23 17:51 Dose: 1 drops Documented By: Admin: 03/19/23 13:22 Dose: 1 drops Documented By: Admin: 03/19/23 09:10 Dose: 1 drops Documented By: Admin: 03/18/23 20:50 Dose: 1 drops Documented By: Admin: 03/18/23 18:10 Dose: 1 drops Documented By: Admin: 03/18/23 13:00 Dose: 1 drops Documented By: Admin: 03/18/23 09:01 Dose: 1 drops Documented By: Admin: 03/17/23 20:37 Dose: 1 drops Documented By: RMZoe Admin: 03/17/23 17:49 Dose: 1 drops Documented By: AAZoe Admin: 03/17/23 12:51 Dose: 1 drops Documented By: AAZoe Admin: 03/17/23 08:34 Dose: 1 drops Documented By: Admin: 03/16/23 20:56 Dose: 1 drops Documented By: Admin: 03/16/23 16:59 Dose: 1 drops Documented By: Admin: 03/16/23 13:22 Dose: 1 drops Documented By: Admin: 03/16/23 10:09 Dose: 1 drops Documented By: Admin: 03/15/23 22:38 Dose: 1 drops Documented By: Admin: 03/15/23 18:05 Dose: 1 drops Documented By: NELLY(2) Admin: 03/15/23 13:50 Dose: 1 drops Documented By: NELLY(2) Admin: 03/15/23 10:16 Dose: 1 drops Documented By: VINICIUS Aspirin (Aspirin 81 Mg Ectab) 81 mg PO DAILY OFE Stop: 04/14/23 08:59 Last Admin: 03/19/23 09:10 Dose: 81 mg Documented By: Admin: 03/18/23 09:02 Dose: 81 mg Documented By: Admin: 03/17/23 08:31 Dose: 81 mg Documented By: Admin: 03/16/23 10:04 Dose: 81 mg Documented By: Admin: 03/15/23 10:07 Dose: 81 mg Documented By: VINICIUS Atorvastatin Calcium (Atorvastatin 10 Mg Tab) 10 mg PO DAILY [facility] Stop: 04/14/23 08:59 Last Admin: 03/21/23 07:41 Dose: 10 mg Documented By: Admin: 03/20/23 08:59 Dose: 10 mg Documented By: Admin: 03/19/23 09:09 Dose: 10 mg Documented By: Admin: 03/18/23 09:02 Dose: 10 mg Documented By: Admin: 03/17/23 08:30 Dose: 10 mg Documented By: Admin: 03/16/23 10:06 Dose: 10 mg Documented By: Admin: 03/15/23 10:06 Dose: 10 mg Documented By: VINICIUS Bupropion HCl (Bupropion Xl 300 Mg Tabcr) 300 mg PO QAM OFE Stop: 04/14/23 08:59 Last Admin: 03/21/23 07:41 Dose: 300 mg Documented By: Admin: 03/20/23 08:59 Dose: 300 mg Documented By: Admin: 03/19/23 09:10 Dose: 300 mg Documented By: Admin: 03/18/23 09:02 Dose: 300 mg Documented By: Admin: 03/17/23 08:32 Dose: 300 mg Documented By: Admin: 03/16/23 10:06 Dose: 300 mg Documented By: Admin: 03/15/23 10:06 Dose: 300 mg Documented By: VINICIUS Cetirizine HCl (Cetirizine Hcl 10 Mg Tablet) 10 mg PO DAILY OFE Stop: 04/14/23 08:59 Last Admin: 03/21/23 07:41 Dose: 10 mg Documented By: Admin: 03/20/23 08:57 Dose: 10 mg Documented By: Admin: 03/19/23 09:10 Dose: 10 mg Documented By: Admin: 03/18/23 09:02 Dose: 10 mg Documented By: Admin: 03/17/23 08:30 Dose: 10 mg Documented By: Admin: 03/16/23 10:06 Dose: 10 mg Documented By: Admin: 03/15/23 10:05 Dose: 10 mg Documented By: VINICIUS Digoxin (Digoxin 0.125 Mg Tab) 0.0625 mg PO DAILY OFE Stop: 04/14/23 08:59 Last Admin: 03/21/23 07:40 Dose: 0.0625 mg Documented By: Admin: 03/20/23 08:59 Dose: 0.0625 mg Documented By: Admin: 03/19/23 09:08 Dose: 0.0625 mg Documented By: Admin: 03/18/23 09:02 Dose: 0.0625 mg Documented By: Admin: 03/17/23 08:31 Dose: 0.0625 mg Documented By: Admin: 03/16/23 10:06 Dose: 0.0625 mg Documented By: Admin: 03/15/23 10:06 Dose: 0.0625 mg Documented By: VINICIUS Duloxetine HCl (Duloxetine Hcl 60 Mg Cap) 60 mg PO DAILY OFE Stop: 04/14/23 08:59 Last Admin: 03/21/23 07:41 Dose: 60 mg Documented By: Admin: 03/20/23 08:58 Dose: 60 mg Documented By: Admin: 03/19/23 09:09 Dose: 60 mg Documented By: Admin: 03/18/23 09:03 Dose: 60 mg Documented By: Admin: 03/17/23 08:31 Dose: 60 mg Documented By: Admin: 03/16/23 10:06 Dose: 60 mg Documented By: Admin: 03/15/23 10:07 Dose: 60 mg Documented By: VINICIUS Erythromycin (Erythromycin Op Oint 5 Mg/Gm 3.5 Gm Tube) 1 appln OPL BID OFE Stop: 03/25/23 08:59 Last Admin: 03/21/23 20:10 Dose: 1 appln Documented By: Admin: 03/21/23 10:27 Dose: 1 appln Documented By: Admin: 03/20/23 20:31 Dose: 1 appln Documented By: Admin: 03/20/23 08:57 Dose: 1 appln Documented By: Admin: 03/19/23 20:05 Dose: 1 appln Documented By: Admin: 03/19/23 09:11 Dose: 1 appln Documented By: Admin: 03/18/23 20:53 Dose: 1 appln Documented By: Admin: 03/18/23 09:03 Dose: 1 appln Documented By: Admin: 03/17/23 20:37 Dose: 1 appln Documented By: Admin: 03/17/23 08:33 Dose: 1 appln Documented By: Admin: 03/16/23 20:55 Dose: 1 appln Documented By: Admin: 03/16/23 10:08 Dose: 1 appln Documented By: Admin: 03/15/23 22:37 Dose: 1 appln Documented By: Admin: 03/15/23 10:05 Dose: 1 appln Documented By: VINICIUS Furosemide (Furosemide 40 Mg Tab) 40 mg PO BID17 OFE Stop: 04/20/23 18:14 Last Admin: 03/21/23 18:16 Dose: 40 mg Documented By: DENAE Gabapentin (Gabapentin 300 Mg Cap) 300 mg PO QID OFE Stop: 04/14/23 08:59 Last Admin: 03/21/23 20:09 Dose: 300 mg Documented By: Admin: 03/21/23 18:08 Dose: 300 mg Documented By: Admin: 03/21/23 13:29 Dose: 300 mg Documented By: Admin: 03/21/23 07:39 Dose: 300 mg Documented By: Admin: 03/20/23 20:31 Dose: 300 mg Documented By: Admin: 03/20/23 18:04 Dose: 300 mg Documented By: Admin: 03/20/23 13:32 Dose: 300 mg Documented By: Admin: 03/20/23 08:56 Dose: 300 mg Documented By: Admin: 03/19/23 20:06 Dose: 300 mg Documented By: Admin: 03/19/23 17:51 Dose: 300 mg Documented By: Admin: 03/19/23 13:21 Dose: 300 mg Documented By: Admin: 03/19/23 09:07 Dose: 300 mg Documented By: Admin: 03/18/23 20:50 Dose: 300 mg Documented By: Admin: 03/18/23 18:10 Dose: 300 mg Documented By: Admin: 03/18/23 13:00 Dose: 300 mg Documented By: Admin: 03/18/23 09:03 Dose: 300 mg Documented By: Admin: 03/17/23 20:37 Dose: 300 mg Documented By: Admin: 03/17/23 17:49 Dose: 300 mg Documented By: Admin: 03/17/23 12:53 Dose: 300 mg Documented By: Admin: 03/17/23 08:34 Dose: 300 mg Documented By: Admin: 03/16/23 20:56 Dose: 300 mg Documented By: Admin: 03/16/23 16:59 Dose: 300 mg Documented By: Admin: 03/16/23 13:21 Dose: 300 mg Documented By: Admin: 03/16/23 10:04 Dose: 300 mg Documented By: Admin: 03/15/23 22:38 Dose: 300 mg Documented By: Admin: 03/15/23 20:06 Dose: 300 mg Documented By: Admin: 03/15/23 13:50 Dose: 300 mg Documented By: AMS(2) Admin: 03/15/23 10:06 Dose: 300 mg Documented By: VINICIUS Insulin Aspart (Insulin Aspart Per Unit Charge) 0 units SC ACHS OFE Stop: 04/14/23 08:17 Last Admin: 03/21/23 20:36 Dose: 7 units Documented By: NELLY Co-signed By: NEIL Admin: 03/21/23 18:09 Dose: 13 units Documented By: MTNando Co-signed By: FILI Admin: 03/21/23 13:29 Dose: 23 units Documented By: MTNando Co-signed By: MM Admin: 03/21/23 09:18 Dose: 12 units Documented By: MTNando Co-signed By: EVER Admin: 03/20/23 20:25 Dose: Not Given Documented By: Admin: 03/20/23 18:04 Dose: 17 units Documented By: MTNando Co-signed By: RRR Admin: 03/20/23 13:32 Dose: 10 units Documented By: MTNadno Co-signed By: [id number] Admin: 03/20/23 09:26 Dose: 12 units Documented By: MTNando Co-signed By: [id number] Admin: 03/19/23 20:10 Dose: Not Given Documented By: Admin: 03/19/23 17:51 Dose: 11 units Documented By: DENAE Co-signed By: RT Admin: 03/19/23 13:22 Dose: 15 units Documented By: MTNando Co-signed By: TLM Admin: 03/19/23 09:25 Dose: 9 units Documented By: MTNando Co-signed By: EVER Admin: 03/18/23 20:49 Dose: 9 units Documented By: NEIL Co-signed By: TANYA Admin: 03/18/23 18:09 Dose: 20 units Documented By: NATALYA Co-signed By: RRClaudia Admin: 03/18/23 12:58 Dose: 17 units Documented By: NATALYA Co-signed By: RRR Admin: 03/18/23 09:33 Dose: 8 units Documented By: NATALYA Co-signed By: RRR Admin: 03/17/23 20:36 Dose: 12 units Documented By: JERRY Co-signed By: TANYA Admin: 03/17/23 17:47 Dose: 29 units Documented By: TRACYB Co-signed By: ANJUM Admin: 03/17/23 12:51 Dose: 12 units Documented By: DION Co-signed By: ANJUM Admin: 03/17/23 08:29 Dose: 17 units Documented By: DION Co-signed By: ANJUM Admin: 03/16/23 20:53 Dose: 20 units Documented By: JERRY Co-signed By: GATITO Admin: 03/16/23 17:44 Dose: 32 units Documented By: KARLO Co-signed By: DARNELL Admin: 03/16/23 13:06 Dose: 25 units Documented By: KARLO Co-signed By: DARNELL Admin: 03/16/23 10:02 Dose: 8 units Documented By: KARLO Co-signed By: DARNELL Admin: 03/15/23 22:40 Dose: 18 units Documented By: JERRY Co-signed By: GATITO Admin: 03/15/23 20:04 Dose: 17 units Documented By: LILY Co-signed By: MERLINE Admin: 03/15/23 14:38 Dose: 8 units Documented By: NELLY(2) Co-signed By: MARK Admin: 03/15/23 10:04 Dose: 5 units Documented By: VINICIUS Co-signed By: AKI Insulin Glargine (Lantus Per Unit Charge) 80 units SQ BID OFE Stop: 04/14/23 08:59 Last Admin: 03/21/23 20:36 Dose: 80 units Documented By: NELLY Co-signed By: NEIL Admin: 03/21/23 09:17 Dose: 80 units Documented By: DENAE Co-signed By: EVER Admin: 03/20/23 20:29 Dose: 80 units Documented By: NELLY Co-signed By: BRIDGER Admin: 03/20/23 09:26 Dose: 80 units Documented By: DENAE Co-signed By: [id number] Admin: 03/19/23 20:19 Dose: 80 units Documented By: NELLY Co-signed By: ALEJANDRA Admin: 03/19/23 09:25 Dose: 80 units Documented By: DENAE Co-signed By: EVER Admin: 03/18/23 20:49 Dose: 80 units Documented By: NEIL Co-signed By: TANYA Admin: 03/18/23 09:25 Dose: 80 units Documented By: NATALYA Co-signed By: TRUPTI Admin: 03/17/23 20:36 Dose: 80 units Documented By: JERRY Co-signed By: TANYA Admin: 03/17/23 08:29 Dose: 80 units Documented By: DION Co-signed By: ANJUM Admin: 03/16/23 20:54 Dose: 80 units Documented By: JERRY Co-signed By: GATITO Admin: 03/16/23 10:03 Dose: 80 units Documented By: KARLO Co-signed By: DARNELL Admin: 03/15/23 22:40 Dose: 80 units Documented By: JERRY Co-signed By: GATITO Admin: 03/15/23 10:04 Dose: 80 units Documented By: VINICIUS Co-signed By: AKI Levothyroxine Sodium (Levothyroxine Sodium 125 Mcg Tablet) 250 mcg PO DAILYBB OFE Stop: 04/14/23 08:59 Last Admin: 03/21/23 05:40 Dose: 250 mcg Documented By: Admin: 03/20/23 05:56 Dose: 250 mcg Documented By: Admin: 03/19/23 06:05 Dose: 250 mcg Documented By: Admin: 03/18/23 06:02 Dose: 250 mcg Documented By: Admin: 03/17/23 05:42 Dose: 250 mcg Documented By: Admin: 03/16/23 06:01 Dose: 250 mcg Documented By: Admin: 03/15/23 10:07 Dose: 250 mcg Documented By: VINICIUS Lidocaine (Lidocaine 5% 1 Patch) 1 patch TD DAILY OFE Stop: 04/14/23 08:59 Last Admin: 03/21/23 07:40 Dose: 1 patch Documented By: Admin: 03/20/23 08:59 Dose: 1 patch Documented By: Admin: 03/19/23 09:09 Dose: 1 patch Documented By: Admin: 03/18/23 09:03 Dose: 1 patch Documented By: Admin: 03/17/23 08:33 Dose: 1 patch Documented By: Admin: 03/16/23 10:07 Dose: 1 patch Documented By: Admin: 03/15/23 10:08 Dose: 1 patch Documented By: VINICIUS Magnesium Oxide (Magnesium Oxide 400 Mg Tab) 400 mg PO DAILY OFE Stop: 04/14/23 08:59 Last Admin: 03/21/23 07:40 Dose: 400 mg Documented By: Admin: 03/20/23 08:58 Dose: 400 mg Documented By: Admin: 03/19/23 09:10 Dose: 400 mg Documented By: Admin: 03/18/23 09:03 Dose: 400 mg Documented By: Admin: 03/17/23 08:30 Dose: 400 mg Documented By: Admin: 03/16/23 10:06 Dose: 400 mg Documented By: Admin: 03/15/23 10:05 Dose: 400 mg Documented By: VINICIUS Metoprolol Succinate (Metoprolol Succ 50mg Ext Rel Tab) 100 mg PO BID OFE Stop: 04/14/23 08:59 Last Admin: 03/21/23 20:09 Dose: 100 mg Documented By: Admin: 03/21/23 07:39 Dose: 100 mg Documented By: Admin: 03/20/23 20:32 Dose: 100 mg Documented By: Admin: 03/20/23 08:58 Dose: 100 mg Documented By: Admin: 03/19/23 20:04 Dose: 100 mg Documented By: Admin: 03/19/23 09:08 Dose: 100 mg Documented By: Admin: 03/18/23 20:51 Dose: 100 mg Documented By: Admin: 03/18/23 09:03 Dose: 100 mg Documented By: Admin: 03/17/23 20:47 Dose: Not Given Documented By: Admin: 03/17/23 08:33 Dose: 100 mg Documented By: Admin: 03/16/23 20:55 Dose: 100 mg Documented By: Admin: 03/16/23 10:06 Dose: 100 mg Documented By: Admin: 03/15/23 22:39 Dose: 100 mg Documented By: Admin: 03/15/23 10:05 Dose: 100 mg Documented By: VINICIUS Miconazole Nitrate (Miconazole Nitrate Powder 85 Gm) 1 appln EXT BID OFE Stop: 04/15/23 08:59 Last Admin: 03/21/23 20:39 Dose: 1 appln Documented By: Admin: 03/21/23 07:45 Dose: 1 appln Documented By: Admin: 03/20/23 20:32 Dose: 1 appln Documented By: Admin: 03/20/23 08:59 Dose: 1 appln Documented By: Admin: 03/19/23 20:07 Dose: 1 appln Documented By: Admin: 03/19/23 09:11 Dose: 1 appln Documented By: Admin: 03/18/23 20:51 Dose: 1 appln Documented By: Admin: 03/18/23 09:04 Dose: 1 appln Documented By: Admin: 03/17/23 20:36 Dose: 1 appln Documented By: Admin: 03/17/23 08:33 Dose: 1 appln Documented By: Admin: 03/16/23 20:54 Dose: 1 appln Documented By: Admin: 03/16/23 10:08 Dose: 1 appln Documented By: KARLO Miscellaneous (Remove Lidoderm Patch) 1 each N/A DAILY@2100 OFE Stop: 04/14/23 08:58 Last Admin: 03/21/23 20:39 Dose: 1 each Documented By: Admin: 03/20/23 20:33 Dose: 1 each Documented By: Admin: 03/19/23 20:07 Dose: 1 each Documented By: Admin: 03/18/23 20:53 Dose: 1 each Documented By: Admin: 03/17/23 20:48 Dose: 1 each Documented By: Admin: 03/16/23 20:56 Dose: 1 each Documented By: Admin: 03/15/23 22:40 Dose: 1 each Documented By: Admin: 03/15/23 10:24 Dose: Not Given Documented By: VINICIUS Multivitamins/Minerals (Cerovite Adv Formula Tab) 1 tab PO DAILY OFE Stop: 04/14/23 08:59 Last Admin: 03/21/23 07:40 Dose: 1 tab Documented By: Admin: 03/20/23 08:57 Dose: 1 tab Documented By: Admin: 03/19/23 09:07 Dose: 1 tab Documented By: Admin: 03/18/23 09:04 Dose: 1 tab Documented By: Admin: 03/17/23 08:30 Dose: 1 tab Documented By: Admin: 03/16/23 10:04 Dose: 1 tab Documented By: Admin: 03/15/23 10:07 Dose: 1 tab Documented By: VINICIUS Pantoprazole Sodium (Pantoprazole 40 Mg Tab) 40 mg PO DAILY OFE Stop: 04/14/23 08:59 Last Admin: 03/21/23 07:41 Dose: 40 mg Documented By: Admin: 03/20/23 08:59 Dose: 40 mg Documented By: Admin: 03/19/23 09:09 Dose: 40 mg Documented By: Admin: 03/18/23 09:04 Dose: 40 mg Documented By: Admin: 03/17/23 08:33 Dose: 40 mg Documented By: Admin: 03/16/23 10:07 Dose: 40 mg Documented By: Admin: 03/15/23 10:07 Dose: 40 mg Documented By: VINICIUS Potassium Chloride (Potassium Chloride Crtab 20 Meq Tabcr) 20 meq PO DAILY OFE Stop: 04/14/23 08:59 Last Admin: 03/21/23 07:41 Dose: 20 meq Documented By: Admin: 03/20/23 08:57 Dose: 20 meq Documented By: Admin: 03/19/23 09:08 Dose: 20 meq Documented By: Admin: 03/18/23 09:04 Dose: 20 meq Documented By: Admin: 03/17/23 08:31 Dose: 20 meq Documented By: Admin: 03/16/23 10:05 Dose: 20 meq Documented By: Admin: 03/15/23 10:07 Dose: 20 meq Documented By: VINICIUS Potassium Chloride (Potassium Chloride Crtab 20 Meq Tabcr) 20 meq PO MoWe@0900 OFE Stop: 04/15/23 08:59 Last Admin: 03/18/23 09:04 Dose: 20 meq Documented By: Admin: 03/16/23 10:05 Dose: 20 meq Documented By: KARLO Senna/Docusate Sodium (Docusate Sodium/Senna 50/8.6mg Tab) 1 tab PO BID OFE Stop: 04/19/23 08:59 Last Admin: 03/21/23 20:09 Dose: 1 tab Documented By: Admin: 03/21/23 07:39 Dose: 1 tab Documented By: Admin: 03/20/23 20:32 Dose: 1 tab Documented By: Admin: 03/20/23 08:57 Dose: 1 tab Documented By: DENAE Spironolactone (Spironolactone 25 Mg Tab) 50 mg PO DAILY OFE Stop: 04/14/23 08:59 Last Admin: 03/21/23 07:40 Dose: 50 mg Documented By: Admin: 03/20/23 08:58 Dose: 50 mg Documented By: Admin: 03/19/23 09:10 Dose: 50 mg Documented By: Admin: 03/18/23 09:04 Dose: 50 mg Documented By: Admin: 03/17/23 08:30 Dose: 50 mg Documented By: Admin: 03/16/23 10:04 Dose: 50 mg Documented By: Admin: 03/15/23 10:07 Dose: 50 mg Documented By: VINICIUS Tramadol HCl (Tramadol Hcl 50 Mg Tablet) 100 mg PO Q6H PRN PRN Reason: Pain Stop: 04/14/23 08:37 Last Admin: 03/21/23 20:09 Dose: 100 mg Documented By: Admin: 03/21/23 04:15 Dose: 100 mg Documented By: Admin: 03/19/23 01:45 Dose: 100 mg Documented By: Admin: 03/18/23 12:13 Dose: 100 mg Documented By: NATALYA Vancomycin HCl (Vancomycin 25mg/Ml Fortified Oph Drops) 1 drops OPL QID OFE Stop: 03/25/23 09:59 Last Admin: 03/21/23 20:09 Dose: 1 drops Documented By: Admin: 03/21/23 18:08 Dose: 1 drops Documented By: Admin: 03/21/23 13:28 Dose: 1 drops Documented By: Admin: 03/21/23 09:20 Dose: 1 drops Documented By: Admin: 03/20/23 20:31 Dose: 1 drops Documented By: Admin: 03/20/23 18:04 Dose: 1 drops Documented By: Admin: 03/20/23 13:35 Dose: 1 drops Documented By: Admin: 03/20/23 09:26 Dose: 1 drops Documented By: Admin: 03/19/23 20:04 Dose: 1 drops Documented By: Admin: 03/19/23 17:51 Dose: 1 drops Documented By: Admin: 03/19/23 13:21 Dose: 1 drops Documented By: Admin: 03/19/23 09:25 Dose: 1 drops Documented By: MTNando Admin: 03/18/23 21:26 Dose: 1 drops Documented By: Admin: 03/18/23 18:09 Dose: 1 drops Documented By: Admin: 03/18/23 13:00 Dose: 1 drops Documented By: Admin: 03/18/23 09:25 Dose: 1 drops Documented By: Admin: 03/17/23 20:36 Dose: 1 drops Documented By: Admin: 03/17/23 17:49 Dose: 1 drops Documented By: Admin: 03/17/23 12:53 Dose: 1 drops Documented By: Admin: 03/17/23 08:35 Dose: 1 drops Documented By: Admin: 03/16/23 21:18 Dose: 1 drops Documented By: Admin: 03/16/23 16:59 Dose: 1 drops Documented By: Admin: 03/16/23 13:21 Dose: 1 drops Documented By: Admin: 03/16/23 10:16 Dose: 1 drops Documented By: Admin: 03/15/23 22:38 Dose: 1 drops Documented By: Admin: 03/15/23 20:07 Dose: 1 drops Documented By: Admin: 03/15/23 13:51 Dose: 1 drops Documented By: NELLY(2) Admin: 03/15/23 10:17 Dose: 1 drops Documented By: VINICIUS Vitamin D (Cholecalciferol 1,000 Units 25 Mcg Tab) 1,000 units PO DAILY OEF Stop: 04/14/23 08:59 Last Admin: 03/21/23 07:40 Dose: 1,000 units Documented By: Admin: 03/20/23 08:57 Dose: 1,000 units Documented By: MTNando Admin: 03/19/23 09:10 Dose: 1,000 units Documented By: MTNando Admin: 03/18/23 09:02 Dose: 1,000 units Documented By: Admin: 03/17/23 08:32 Dose: 1,000 units Documented By: Admin: 03/16/23 10:04 Dose: 1,000 units Documented By: Admin: 03/15/23 10:07 Dose: 1,000 units Documented By: VINICIUS Discontinued Medications Furosemide (Furosemide 80 Mg Tab) 80 mg PO BID17 OFE Stop: 04/14/23 08:59 Last Admin: 03/15/23 10:08 Dose: Not Given Documented By: VINICIUS Furosemide (Furosemide 40 Mg Tab) 40 mg PO BID17 OFE Stop: 04/17/23 16:59 Last Admin: 03/19/23 09:08 Dose: 40 mg Documented By: Admin: 03/18/23 18:09 Dose: 40 mg Documented By: NATALYA Furosemide (Furosemide 40 Mg Tab) 40 mg PO DAILY OFE Stop: 04/19/23 08:59 Last Admin: 03/21/23 07:41 Dose: 40 mg Documented By: Admin: 03/20/23 08:58 Dose: 40 mg Documented By: DENAE Sodium Chloride (Nss 1000ml) 1,000 mls @ 75 mls/hr IV .[id number] OFE Stop: 03/16/23 11:09 Last Infusion: 03/16/23 13:19 Dose: 0 mls/hr Documented By: Admin: 03/16/23 00:05 Dose: 75 mls/hr Documented By: Infusion: 03/15/23 23:41 Dose: 75 mls/hr Documented By: Admin: 03/15/23 10:21 Dose: 75 mls/hr Documented By: VINICIUS Lidocaine HCl (Xylocaine 1%/Sod Bicarb 20 Ml Vial) 20 ml INFIL NOW ONE Stop: 03/15/23 03:22 Last Admin: 03/15/23 04:57 Dose: 2 ml Documented By: CHUCHO Miscellaneous (*Cadexomer Iodine [Iodosorb] 0.9 % Gel)*Order Awaiting Action) 1 each N/A QS OFE Stop: 04/14/23 15:59 Last Admin: 03/18/23 08:52 Dose: Not Given Documented By: Admin: 03/17/23 23:22 Dose: Not Given Documented By: Admin: 03/17/23 17:48 Dose: Not Given Documented By: Admin: 03/17/23 08:35 Dose: Not Given Documented By: Admin: 03/16/23 23:27 Dose: Not Given Documented By: Admin: 03/16/23 15:29 Dose: Not Given Documented By: Admin: 03/16/23 10:17 Dose: Not Given Documented By: Admin: 03/16/23 00:07 Dose: Not Given Documented By: Admin: 03/15/23 19:30 Dose: Not Given Documented By: LILY Non-Formulary Medication (Cadexomer Iodine [Iodosorb]) 40 gm TOP Q3D OFE Stop: 04/14/23 08:17 Last Admin: 03/15/23 10:04 Dose: Not Given Documented By: VINICIUS Nystatin (Nystatin Cr 15 Gm Tube) 1 appln EXT BID OFE Stop: 04/14/23 08:59 Last Admin: 03/15/23 22:37 Dose: 1 appln Documented By: Admin: 03/15/23 10:06 Dose: 1 appln Documented By: VINICIUS Sennosides (Senna 8.6 Mg Tab) 8.6 mg PO BID OFE Stop: 04/14/23 08:59 Last Admin: 03/19/23 20:07 Dose: 8.6 mg Documented By: Admin: 03/19/23 09:25 Dose: Not Given Documented By: Admin: 03/18/23 20:51 Dose: 8.6 mg Documented By: Admin: 03/18/23 09:04 Dose: 8.6 mg Documented By: Admin: 03/17/23 20:37 Dose: 8.6 mg Documented By: RMZoe Admin: 03/17/23 08:34 Dose: 8.6 mg Documented By: Admin: 03/16/23 20:54 Dose: 8.6 mg Documented By: Admin: 03/16/23 10:05 Dose: 8.6 mg Documented By: Admin: 03/15/23 22:39 Dose: 8.6 mg Documented By: Admin: 03/15/23 10:06 Dose: 8.6 mg Documented By: VINICIUS Medical Decision Making Differential Diagnosis Infection, dehydration, metabolic abnormality, hypo/hyperglycemia, electrolyte disturbance, anemia, hypoxia, cardiac sources, intracerebral event, toxicologic, neurologic, as well as other pathologies. Home Medications was personally reviewed by me Laboratory Data Attestation: I reviewed the patient's lab results. 03/15/23 03:20 03/15/23 03:20 Lab Results 03/15/23 03/15/23 03/15/23 Range/Units 03:20 03:20 04:50 WBC 6.54 (4.8-10.8) K/ul RBC 4.65 L (4.70-6.10) M/uL Hgb 13.2 L (14.0-18.0) g/dl Hct 40.3 L (42.0-52.0) % MCV 86.7 (80.0-100.0) fL MCH 28.4 (25.0-34.0) pg MCHC 32.8 (32.0-36.0) g/dL RDW Std Deviation 54.1 H (36.4-46.3) fL RDW Coeff of Baldo 17.2 H (11.5-14.5) % Plt Count 150 (130-400) K/uL MPV 10.8 (9.4-12.4) fL Immature Gran % (Auto) 0.5 % Neut % (Auto) 67.3 % Lymph % (Auto) 15.4 % [place] % (Auto) 11.9 % Eos % (Auto) 4.3 % Baso % (Auto) 0.6 % Neut # (Auto) 4.40 (1.40-6.50) K/uL Lymph # (Auto) 1.01 L (1.20-3.40) K/uL [place] # (Auto) 0.78 H (0.11-0.59) K/uL Eos # (Auto) 0.28 (0.00-0.50) K/uL Baso # (Auto) 0.04 (0.00-0.20) K/uL Immature Gran # (Auto) 0.03 (0.01-0.20) K/uL Sodium 134 L (136-145) mmol/L Potassium 4.0 (3.5-5.1) mmol/L Chloride 92 L (98-107) mmol/L Carbon Dioxide 31 (21-32) mmol/L Anion Gap 11 (3-11) BUN 59 H (6-23) mg/dl Creatinine 2.27 H (0.6-1.4) mg/dl Est Cr Clr Drug Dosing Not Reportable Est GFR ( Amer) 32.7 ml/min Est GFR (Non-Af Amer) 28.2 ml/min BUN/Creatinine Ratio 26.0 H (10-20) Glucose 177 H (70-99(Fasting)) mg/dl Calcium 10.1 (8.6-10.3) mg/dl Total Bilirubin 1.2 H (0.2-1.0) mg/dl AST 31 (13-39) U/L ALT 19 (7-52) U/L Alkaline Phosphatase 142 H (34-104) U/L Total Protein 6.6 (6.0-8.3) gm/dl Albumin 3.6 (3.4-5.0) gm/dl Globulin 3.0 (2.5-4.0) gm/dl Albumin/Globulin Ratio 1.2 (0.9-2) Urine Color Yellow Urine Appearance Clear (Clear) Urine pH 7.0 (4.5-7.5) Ur Specific Thermal 1.010 (1.000-1.030) Urine Protein Negative (Negative) Urine Glucose (UA) Trace H (Negative) Urine Ketones Negative (Negative) Urine Blood Negative (Negative) Urine Nitrite Negative (Negative) Urine Bilirubin Negative (Negative) Urine Urobilinogen Negative (Negative) Ur Leukocyte Esterase Negative (Negative) Imaging Data Attestation: I personally reviewed and interpreted this imaging study as fol lows: Radiologist's Impression: Chest X-Ray 03/15/23 03:22 SINGLE VIEW CHEST CLINICAL HISTORY: Generalized weakness FINDINGS: An AP, portable, upright chest radiograph is compared to study dated 01/24/2023. A 2-lead cardiac pacemaker is unchanged in position. The heart is enlarged noting atherosclerotic calcification of the thoracic aorta. The pulmonary vasculature is noncongested. Chronic interstitial thickening similar t o previous. There is bibasilar scarring/atelectasis. Postsurgical change is noted on the right. No airspace consolidation or large pleural effusion is identified. No pneumothorax is seen. The skeletal structures are osteopenic. There are chronic/healed right-sided rib fractures. IMPRESSION: 1. Cardiomegaly and cardiac pacemaker without radiographic evidence of congestive failure. 2. No airspace consolidation or large pleural effusion is identified. ACT 112: Negative or not required by law. Electronically signed by: Anupam Gonzalez M.D. 03/15/2023 8:14 AM MDM Narrative This patient is a 73-year-old male who presents to the emergency department for evaluation of multiple falls. He was found to have a laceration of the fifth toe which was repaired as noted in the procedure section. CT of the head was unremarkable. Patient found to have an acute kidney injury and for this reason as well as for generalized weakness and multiple falls will require admission. Patient was agreeable with the plan of care. Case was discussed with the hospitalist service, who agreed to evaluate the patient for further care. Impression Multiple falls, Acute kidney injury, Laceration of toe Discharge Plan Visit Data Chief Complaint: Fall Stated Complaint: FALLS/BILATERAL TOES INJURIES ED Provider: Crhistopher Mcmillan ED Midlevel Provider: Samantha Pierre Discharge Problem: Multiple falls, Acute kidney injury, Laceration of toe Patient Disposition: Admitted As Inpatient Discharge Instructions Interventions: ED Discharge Assessment Last Done: 03/15/23 08:18
--- NOTE | 2023-03-15 08:16 | XRay Report ---
SINGLE VIEW CHEST CLINICAL HISTORY: Generalized weakness FINDINGS: An AP, portable, upright chest radiograph is compared to study dated 01/24/2023. A 2-lead ca rdiac pacemaker is unchanged in position. The heart is enlarged noting atherosclerotic calcification of the thoracic aorta. The pulmonary vasculature is noncongested. Chronic interstitial thickening sim ilar to previous. There is bibasilar scarring/atelectasis. Postsurgical change is noted on the right. No airspace consolidation or large pleural effusion is identified. No pneumothorax is seen. The skel etal structures are osteopenic. There are chronic/healed right-sided rib fractures. IMPRESSION: 1. Cardiomegaly and cardiac pacemaker without radiographic evidence of congestive failure. 2. No airspace consolidation or large pleural effusion is identified. ACT 112: Negative or not required by law. Electronically signed by: Anupam Gonzalez M.D. 03/15/2023 8:14 AM
[2023-03-15] MEDS ORDERED: CADEXOMER IODINE 0.9% TOP SCH (08:18)
[2023-03-15] MEDS ORDERED: CARBOHYDRATES FOR HYPOGLYCEMIA PO PRN (08:18)
[2023-03-15] MEDS ORDERED: POLYETHYLENE (MIRALAX) 17 GM PACK PO PRN (08:18)
[2023-03-15] MEDS ORDERED: SODIUM CHLORIDE INT OCU SCH (08:18)
[2023-03-15] MEDS ORDERED: GLUCOSE 10 TAB/TUBE PO PRN (08:18)
[2023-03-15] MEDS ORDERED: NITROGLYCERIN SL 0.4 MG/TAB TAB SL PRN (08:18)
[2023-03-15] MEDS ORDERED: DEXTROSE 50% 50 ML SYRINGE IV PRN (08:18)
[2023-03-15] MEDS ORDERED: GLUCOSE 40% GEL 15 GM TUBE PO PRN (08:18)
[2023-03-15] MEDS ORDERED: VANCOMYCIN INT OCU SCH (08:18)
[2023-03-15] MEDS ORDERED: GLUCAGON FOR INJ 1 MG VIAL SQ PRN (08:18)
[2023-03-15] MEDS ORDERED: ALBUTEROL HFA 8 GM INHALER INH PRN (08:44)
[2023-03-15] MEDS ORDERED: NON-FORMULARY MEDICATION (Vit C,E-Zn-Coppr-Lutein-Zeaxan [Preservision Areds-2] 250-90-40- PO SCH (09:00)
[2023-03-15] MEDS ORDERED: FUROSEMIDE 80 MG TAB PO SCH (09:00)
[2023-03-15 09:16] LABS: Basophils # (auto) 0.04 K/uL (0.00-0.20); Basophils % (auto) 0.6 %; Eosinophils # (auto) 0.24 K/uL (0.00-0.50); Eosinophils % (auto) 3.7 %; Hematocrit (blood only) 41.1 % (42.0-52.0); Hemoglobin 13.5 g/dl (14.0-18.0); Immature Granulocytes # (auto) 0.02 K/uL (0.01-0.20); Immature Granulocytes % (auto) 0.3 %; Lymphocytes # (auto) 1.05 K/uL (1.20-3.40); Lymphocytes % (auto) 16.4 %; Mean Corpuscular Hemoglobin 28.5 pg (25.0-34.0); Mean Corpuscular Hgb Conc 32.8 g/dL (32.0-36.0); Mean Corpuscular Volume 86.7 fL (80.0-100.0); Mean Platelet Volume 10.8 fL (9.4-12.4); Monocytes # (auto) 0.76 K/uL (0.11-0.59); Monocytes % (auto) 11.9 %; Neutrophils % (auto) 67.1 %; Platelet Count 136 K/uL (130-400); RDW Coefficient of Variation 17.4 % (11.5-14.5); RDW Standard Deviation 54.1 fL (36.4-46.3); Red Blood Count 4.74 M/uL (4.70-6.10); White Blood Count 6.41 K/ul (4.8-10.8)
[2023-03-15 09:22] LABS: Anion Gap 11 (3-11); BUN Creatinine Ratio 26.9 (10-20); Blood Urea Nitrogen 54 mg/dl (6-23); Calcium 9.8 mg/dl (8.6-10.3); Carbon Dioxide 32 mmol/L (21-32); Chloride 93 mmol/L (98-107); Est GFR (African American) 37.8 ml/min; Est GFR (Non-African American) 32.6 ml/min; Glucose 212 mg/dl (70-99(Fasting)); Magnesium 2.3 mg/dl (1.7-2.4); Potassium 3.8 mmol/L (3.5-5.1); Sodium 136 mmol/L (136-145)
[2023-03-15] MEDS: INSULIN ASPART PER UNIT CHARGE SC SCH ×4 (10:04→22:40)
[2023-03-15] MEDS: LANTUS PER UNIT CHARGE SQ SCH ×2 (10:04→22:40)
[2023-03-15] MEDS: ERYTHROMYCIN OP OINT 5 MG/GM 3.5 GM TUBE OPL SCH ×2 (10:05→22:37)
[2023-03-15] MEDS: METOPROLOL SUCC 50MG EXT REL TAB PO SCH ×2 (10:05→22:39)
[2023-03-15] MEDS: CETIRIZINE HCL 10 MG TABLET PO SCH (10:05)
[2023-03-15] MEDS: MAGNESIUM OXIDE 400 MG TAB PO SCH (10:05)
[2023-03-15] MEDS: DIGOXIN 0.125 MG TAB PO SCH (10:06)
[2023-03-15] MEDS: buPROPion XL 300 MG TABCR PO SCH (10:06)
[2023-03-15] MEDS: ATORVASTATIN 10 MG TAB PO SCH (10:06)
[2023-03-15] MEDS: SENNA 8.6 MG TAB PO SCH ×2 (10:06→22:39)
[2023-03-15] MEDS: NYSTATIN CR 15 GM TUBE EXT SCH ×2 (10:06→22:37)
[2023-03-15] MEDS: GABAPENTIN 300 MG CAP PO SCH ×4 (10:06→22:38)
[2023-03-15] MEDS: LEVOTHYROXINE SODIUM 125 MCG TABLET PO SCH (10:07)
[2023-03-15] MEDS: CHOLECALCIFEROL 1,000 UNITS 25 MCG TAB PO SCH (10:07)
[2023-03-15] MEDS: allopurinoL 300 MG TAB PO SCH (10:07)
[2023-03-15] MEDS: DULoxetine HCL 60 MG CAP PO SCH (10:07)
[2023-03-15] MEDS: PANTOprazole 40 MG TAB PO SCH (10:07)
[2023-03-15] MEDS: ASPIRIN 81 MG ECTAB PO SCH (10:07)
[2023-03-15] MEDS: POTASSIUM CHLORIDE CRTAB 20 MEQ TABCR PO SCH (10:07)
[2023-03-15] MEDS: SPIRONOLACTONE 25 MG TAB PO SCH (10:07)
[2023-03-15] MEDS: CEROVITE ADV FORMULA TAB PO SCH (10:07)
[2023-03-15] MEDS: LIDOCAINE 5% 1 PATCH TD SCH (10:08)
[2023-03-15] MEDS: APIXABAN 5 MG TABLET PO SCH ×2 (10:08→22:39)
[2023-03-15] MEDS: ARTIFICIAL TEARS OP SCH ×4 (10:16→22:38)
[2023-03-15] MEDS: VANCOMYCIN 25MG/ML FORTIFIED OPH DROPS OPL SCH ×4 (10:17→22:38)
[2023-03-15] MEDS: SODIUM CHLORIDE 0.9% 1,000 ML IV SCH (10:21)
--- NOTE | 2023-03-15 15:15 | Communication Note ---
Date of Service: March 15, 2023 72-year-old male with the obesity and significant comorbid conditions was admitted early this morning with frequent falls and noted to have dehydration w ith ALMA ROSA. He has been feeling much better in the emergency room and denies any significant symptoms. His medications and labs were reviewed. Full progress note will be done tomorrow. Dr Nando Vigil
[2023-03-15] MEDS: ACETAMINOPHEN 325 MG TAB PO PRN (22:55)
[2023-03-16] MEDS: SODIUM CHLORIDE 0.9% 1,000 ML IV SCH (00:05)
[2023-03-16] MEDS: LEVOTHYROXINE SODIUM 125 MCG TABLET PO SCH (06:01)
[2023-03-16 07:36] LABS: Estimated Average Glucose 217 mg/dl; Hemoglobin A1C 9.2 % (4.5-5.6)
[2023-03-16 07:56] LABS: Anion Gap 7 (3-11); Basophils # (auto) 0.05 K/uL (0.00-0.20); Basophils % (auto) 0.9 %; Calcium 9.3 mg/dl (8.6-10.3); Carbon Dioxide 32 mmol/L (21-32); Chloride 98 mmol/L (98-107); Eosinophils # (auto) 0.24 K/uL (0.00-0.50); Eosinophils % (auto) 4.4 %; Hematocrit (blood only) 39.3 % (42.0-52.0); Hemoglobin 12.5 g/dl (14.0-18.0); Immature Granulocytes # (auto) 0.03 K/uL (0.01-0.20); Immature Granulocytes % (auto) 0.5 %; Lymphocytes # (auto) 1.14 K/uL (1.20-3.40); Lymphocytes % (auto) 20.8 %; Mean Corpuscular Hemoglobin 28.1 pg (25.0-34.0); Mean Corpuscular Hgb Conc 31.8 g/dL (32.0-36.0); Mean Corpuscular Volume 88.3 fL (80.0-100.0); Mean Platelet Volume 11.4 fL (9.4-12.4); Monocytes % (auto) 12.8 %; Neutrophils # (auto) 3.31 K/uL (1.40-6.50); Neutrophils % (auto) 60.6 %; Platelet Count 141 K/uL (130-400); Potassium 3.6 mmol/L (3.5-5.1); RDW Coefficient of Variation 17.4 % (11.5-14.5); RDW Standard Deviation 55.4 fL (36.4-46.3); Red Blood Count 4.45 M/uL (4.70-6.10); Sodium 137 mmol/L (136-145); White Blood Count 5.47 K/ul (4.8-10.8)
[2023-03-16 08:01] LABS: BUN Creatinine Ratio 24.9 (10-20); Blood Urea Nitrogen 46 mg/dl (6-23); Est GFR (African American) 41.5 ml/min; Est GFR (Non-African American) 35.8 ml/min; Glucose 96 mg/dl (70-99(Fasting))
[2023-03-16] MEDS: INSULIN ASPART PER UNIT CHARGE SC SCH ×4 (10:02→20:53)
[2023-03-16] MEDS: LANTUS PER UNIT CHARGE SQ SCH ×2 (10:03→20:54)
[2023-03-16] MEDS: APIXABAN 5 MG TABLET PO SCH ×2 (10:03→20:56)
[2023-03-16] MEDS: CEROVITE ADV FORMULA TAB PO SCH (10:04)
[2023-03-16] MEDS: CHOLECALCIFEROL 1,000 UNITS 25 MCG TAB PO SCH (10:04)
[2023-03-16] MEDS: GABAPENTIN 300 MG CAP PO SCH ×4 (10:04→20:56)
[2023-03-16] MEDS: ASPIRIN 81 MG ECTAB PO SCH (10:04)
[2023-03-16] MEDS: SPIRONOLACTONE 25 MG TAB PO SCH (10:04)
[2023-03-16] MEDS: POTASSIUM CHLORIDE CRTAB 20 MEQ TABCR PO SCH ×2 (10:05)
[2023-03-16] MEDS: allopurinoL 300 MG TAB PO SCH (10:05)
[2023-03-16] MEDS: SENNA 8.6 MG TAB PO SCH ×2 (10:05→20:54)
[2023-03-16] MEDS: METOPROLOL SUCC 50MG EXT REL TAB PO SCH ×2 (10:06→20:55)
[2023-03-16] MEDS: CETIRIZINE HCL 10 MG TABLET PO SCH (10:06)
[2023-03-16] MEDS: ATORVASTATIN 10 MG TAB PO SCH (10:06)
[2023-03-16] MEDS: MAGNESIUM OXIDE 400 MG TAB PO SCH (10:06)
[2023-03-16] MEDS: DIGOXIN 0.125 MG TAB PO SCH (10:06)
[2023-03-16] MEDS: DULoxetine HCL 60 MG CAP PO SCH (10:06)
[2023-03-16] MEDS: buPROPion XL 300 MG TABCR PO SCH (10:06)
[2023-03-16] MEDS: PANTOprazole 40 MG TAB PO SCH (10:07)
[2023-03-16] MEDS: LIDOCAINE 5% 1 PATCH TD SCH (10:07)
[2023-03-16] MEDS: ERYTHROMYCIN OP OINT 5 MG/GM 3.5 GM TUBE OPL SCH ×2 (10:08→20:55)
[2023-03-16] MEDS: MICONAZOLE NITRATE POWDER 85 GM EXT SCH ×2 (10:08→20:54)
[2023-03-16] MEDS: ARTIFICIAL TEARS OP SCH ×4 (10:09→20:56)
[2023-03-16] MEDS: VANCOMYCIN 25MG/ML FORTIFIED OPH DROPS OPL SCH ×4 (10:16→21:18)
--- NOTE | 2023-03-16 14:20 | Hospitalist Progress Note ---
Date of Service March 16, 2023 Assessment & Plan (1) ALMA ROSA (acute kidney injury): Plan: 72-year-old male with past med significant for type 2 diabetes, chronic kidney stage III hyperlipidemia, hypothyroidism, diabetic retinopathy, hypothyroidism, obstructive sleep apnea and COPD overlap syndrome, combined systolic and diastolic CHF, pulmonary hypertension, chronic right-sided heart failure, abdominal aortic atherosclerosis, paroxysmal atrial fibrillation, tach ybradycardia syndrome s/p pacemaker, morbid obesity, GERD, gout arthropathy, osteoarthritis, psoriasis, pulmonary embolism, MRSA colonization, tremor, PTSD, recurrent falls, history of COVID, depression, who is at [facility] comes because of frequent falls and also found to have an ALMA ROSA ALMA ROSA on chronic kidney disease 3 Presented with creatinine of 2.2 Baseline creatinine 1.4/1.6 Getting gentle fluids We will follow repeat labs Creatinine slightly better at 1.85 from 2.01 on admission Advised to drink more fluid-do not give any more IV fluid Frequent falls History of falls Says he is wheelchair-bound for last 1 and a month and getting the wheelchair is falling down PT OT-pending May need rehab or penitentiary placement Otherwise medically stable with no significant abnormal lab except ALMA ROSA as above Obstructive sleep apnea Currently only using oxygen the nighttime No acute issue-saturating normally on 2 L COPD Home inhalers History of combined systolic and diastolic CHF Continue home Lasix 80 mg twice daily and spironolactone and potassium supplements and metoprolol succinate Getting gentle fluids monitor for volume overload History of A-fib History of tachybradycardia syndrome s/p pacemaker On metoprolol succinate and digoxin and Eliquis Will monitor Diabetes Continue home Lantus insulin sliding scale Monitor blood sugars and HbA1c levels Hypothyroidism On Synthyroid. Hypertension On metoprolol, and diuretics Will monitor Hyperlipidemia on statin GERD on omeprazole Depression duloxetine and bupropion Gout On allopurinol Lower extremity superficial wounds Wound care nurse evaluation and recommendation Dressing as per wound care DVT prophylaxis on Eliquis Disposition med/telemetry Full code as per my discussion with the patient Admission and Anticipated Discharge Date Admission Date: March 15, 2023 Subjective 03/16/2023 The patient was seen and examined in medical telemetry unit He has been feeling much better and denies any significant symptoms Review of Systems Review of Systems: All systems reviewed and are unremarkable except as noted below Physical Exam Physical Exam: Lying in bed comfortably Constitutional: well developed, well nourished and + morbidly obese Eyes: PERRL, conjunctivae normal, anicteric sclerae ENMT: external ear and nose normal, oropharynx normal Neck: trachea midline, no thyromegaly Respiratory: no respiratory distress Auscultation: lungs clear to auscultation bilaterally Cardiovascular: Rate/Rhythm: regular rate and regular rhythm; not tachycardic Heart Sounds: normal S1 and normal S2; no murmur Extremities: + edema (Trace edema bilaterally) Gastrointestinal (Abdomen): Inspection/Auscultation: normal bowel sounds; abdomen not distended Percussion/Palpation: abdomen soft; abdomen nontender Musculoskeletal: Bilateral foot and leg wounds. Chronic skin changes with ulceration. Venous insufficiency Neurologic: normal touch/pain/proprioception and moves all extremities; no focal motor deficits Lymphatic: no cervical or axillary lymphadenopathy Results & Data Results & Data Vital Signs (Past 12 Hours) Vital Signs Temp Pulse Pulse Resp BP Pulse Ox O2 Del Method 03/16/23 11:26 36.9 C 74 16 124/56 L 95 Room Air 03/16/23 11:27 Nasal Cannula 03/16/23 10:06 97 H 03/16/23 07:53 36.7 C 97 H 16 119/69 93 Room Air 03/16/23 02:32 37.1 C 87 16 111/63 92 Room Air O2 Flow Rate 03/16/23 11:26 03/16/23 11:27 2 03/16/23 10:06 03/16/23 07:53 03/16/23 02:32 Laboratory Results Short CBC 03/16/23 Range/Units 07:16 WBC 5.47 (4.8-10.8) K/ul Hgb 12.5 L (14.0-18.0) g/dl Hct 39.3 L (42.0-52.0) % Plt Count 141 (130-400) K/uL BMP 03/16/23 07:16 Sodium 137 Potassium 3.6 Chloride 98 Carbon Dioxide 32 BUN 46 H Creatinine 1.85 H Glucose 96 Calcium 9.3 Medications Administered Current Inpatient Medications Acetaminophen (Acetaminophen 325 Mg Tab) 650 mg PO Q4H PRN PRN Reason: Pain or Fever Stop: 04/14/23 08:17 Last Admin: 03/15/23 22:55 Dose: 650 mg Albuterol (Albuterol Hfa 8 Gm Inhaler) 2 puffs INH Q4H PRN PRN Reason: Shortness Of Breath Or Wheezing Stop: 04/14/23 08:43 Allopurinol (Allopurinol 300 Mg Tab) 300 mg PO DAILY OFE Stop: 04/14/23 08:59 Last Admin: 03/16/23 10:05 Dose: 300 mg Apixaban (Apixaban 5 Mg Tablet) 5 mg PO BID OFE Stop: 04/14/23 08:59 Last Admin: 03/16/23 10:03 Dose: 5 mg Artificial Tears (Artificial Tears) 1 drops OP QID OFE Stop: 04/14/23 08:59 Last Admin: 03/16/23 13:22 Dose: 1 drops Aspirin (Aspirin 81 Mg Ectab) 81 mg PO DAILY OFE Stop: 04/14/23 08:59 Last Admin: 03/16/23 10:04 Dose: 81 mg Atorvastatin Calcium (Atorvastatin 10 Mg Tab) 10 mg PO DAILY OFE Stop: 04/14/23 08:59 Last Admin: 03/16/23 10:06 Dose: 10 mg Bupropion HCl (Bupropion Xl 300 Mg Tabcr) 300 mg PO QAM OFE Stop: 04/14/23 08:59 Last Admin: 03/16/23 10:06 Dose: 300 mg Cetirizine HCl (Cetirizine Hcl 10 Mg Tablet) 10 mg PO DAILY OFE Stop: 04/14/23 08:59 Last Admin: 03/16/23 10:06 Dose: 10 mg Dextrose (Dextrose 50% 50 Ml Syringe) 25 - 50 ml IV UD PRN; Protocol PRN Reason: Hypoglycemia Protocol Stop: 04/14/23 08:17 Digoxin (Digoxin 0.125 Mg Tab) 0.0625 mg PO DAILY OFE Stop: 04/14/23 08:59 Last Admin: 03/16/23 10:06 Dose: 0.0625 mg Duloxetine HCl (Duloxetine Hcl 60 Mg Cap) 60 mg PO DAILY OFE Stop: 04/14/23 08:59 Last Admin: 03/16/23 10:06 Dose: 60 mg Erythromycin (Erythromycin Op Oint 5 Mg/Gm 3.5 Gm Tube) 1 appln OPL BID OFE Stop: 03/25/23 08:59 Last Admin: 03/16/23 10:08 Dose: 1 appln Furosemide (Furosemide 80 Mg Tab) 80 mg PO BID17 OFE Stop: 04/14/23 08:59 Last Admin: 03/15/23 10:08 Dose: Not Given Gabapentin (Gabapentin 300 Mg Cap) 300 mg PO QID OFE Stop: 04/14/23 08:59 Last Admin: 03/16/23 13:21 Dose: 300 mg Glucagon (Glucagon For Inj 1 Mg Vial) 1 mg SQ UD PRN; Protocol PRN Reason: Hypoglycemia Protocol Stop: 04/14/23 08:17 Glucose (Glucose 10 Tab/Tube) 4 - 8 tab PO UD PRN; Protocol PRN Reason: Hypoglycemia Treatment Stop: 04/14/23 08:17 Glucose (Glucose 40% Gel 15 Gm Tube) 15 - 30 gm PO UD PRN; Protocol PRN Reason: Hypoglycemia Protocol Stop: 04/14/23 08:17 Insulin Aspart (Insulin Aspart Per Unit Charge) 0 units SC ACHS OFE Stop: 04/14/23 08:17 Last Admin: 03/16/23 13:06 Dose: 25 units Insulin Glargine (Lantus Per Unit Charge) 80 units SQ BID OFE Stop: 04/14/23 08:59 Last Admin: 03/16/23 10:03 Dose: 80 units Levothyroxine Sodium (Levothyroxine Sodium 125 Mcg Tablet) 250 mcg PO DAILYBB OFE Stop: 04/14/23 08:59 Last Admin: 03/16/23 06:01 Dose: 250 mcg Lidocaine (Lidocaine 5% 1 Patch) 1 patch TD DAILY OFE Stop: 04/14/23 08:59 Last Admin: 03/16/23 10:07 Dose: 1 patch Magnesium Oxide (Magnesium Oxide 400 Mg Tab) 400 mg PO DAILY OFE Stop: 04/14/23 08:59 Last Admin: 03/16/23 10:06 Dose: 400 mg Metoprolol Succinate (Metoprolol Succ 50mg Ext Rel Tab) 100 mg PO BID OFE Stop: 04/14/23 08:59 Last Admin: 03/16/23 10:06 Dose: 100 mg Miconazole Nitrate (Miconazole Nitrate Powder 85 Gm) 1 appln EXT BID OFE Stop: 04/15/23 08:59 Last Admin: 03/16/23 10:08 Dose: 1 appln Miscellaneous (Carbohydrates For Hypoglycemia ) 15 - 30 gm PO UD PRN PRN Reason: Hypoglycemia Protocol Stop: 04/14/23 08:17 Miscellaneous (Remove Lidoderm Patch) 1 each N/A DAILY@2100 [facility] Stop: 04/14/23 08:58 Last Admin: 03/15/23 22:40 Dose: 1 each Miscellaneous (*Cadexomer Iodine [Iodosorb] 0.9 % Gel)*Order Awaiting Action) 1 each N/A QS OFE Stop: 04/14/23 15:59 Last Admin: 03/16/23 10:17 Dose: Not Given Multivitamins/Minerals (Cerovite Adv Formula Tab) 1 tab PO DAILY OFE Stop: 04/14/23 08:59 Last Admin: 03/16/23 10:04 Dose: 1 tab Nitroglycerin (Nitroglycerin Sl 0.4 Mg/Tab Tab) 0.4 mg SL Q5M PRN PRN Reason: Chest Pain Stop: 04/14/23 08:17 Pantoprazole Sodium (Pantoprazole 40 Mg Tab) 40 mg PO DAILY OFE Stop: 04/14/23 08:59 Last Admin: 03/16/23 10:07 Dose: 40 mg Polyethylene Glycol (Polyethylene (Miralax) 17 Gm Pack) 17 gm PO DAILY PRN PRN Reason: Constipation Stop: 04/14/23 08:17 Potassium Chloride (Potassium Chloride Crtab 20 Meq Tabcr) 20 meq PO DAILY OFE Stop: 04/14/23 08:59 Last Admin: 03/16/23 10:05 Dose: 20 meq Potassium Chloride (Potassium Chloride Crtab 20 Meq Tabcr) 20 meq PO MoWe@0900 OFE Stop: 04/15/23 08:59 Last Admin: 03/16/23 10:05 Dose: 20 meq Sennosides (Senna 8.6 Mg Tab) 8.6 mg PO BID OFE Stop: 04/14/23 08:59 Last Admin: 03/16/23 10:05 Dose: 8.6 mg Spironolactone (Spironolactone 25 Mg Tab) 50 mg PO DAILY OFE Stop: 04/14/23 08:59 Last Admin: 03/16/23 10:04 Dose: 50 mg Tramadol HCl (Tramadol Hcl 50 Mg Tablet) 100 mg PO Q6H PRN PRN Reason: Pain Stop: 04/14/23 08:37 Vancomycin HCl (Vancomycin 25mg/Ml Fortified Oph Drops) 1 drops OPL QID [facility] Stop: 03/25/23 09:59 Last Admin: 03/16/23 13:21 Dose: 1 drops Vitamin D (Cholecalciferol 1,000 Units 25 Mcg Tab) 1,000 units PO DAILY OFE Stop: 04/14/23 08:59 Last Admin: 03/16/23 10:04 Dose: 1,000 units
--- NOTE | 2023-03-16 22:29 | Electrocardiogram Report ---
Test Reason : Blood Pressure : / mmHG Vent. Rate : 098 BPM Atrial Rate : 098 BPM P-R Int : 000 ms QRS Dur : 166 ms QT Int : 446 ms P-R-T Axes : 000 -83 078 degrees QTc Int : 569 ms Atrial-paced rhythm Right bundle branch block Left anterior fascicular block Bifascicular block Possible Lateral infarct , age undetermined Abnormal ECG When compared with ECG of 24-JAN-2023 09:51, Electronic atrial pacemaker has replaced Atrial fibrillation Vent. rate has increased BY 37 BPM Confirmed by Reinier Reese ([id number]) on 03/16/2023 10:28:51 PM Referred By: Keith Rose Confirmed By:Reinier Reese
[2023-03-17] MEDS: LEVOTHYROXINE SODIUM 125 MCG TABLET PO SCH (05:42)
[2023-03-17] MEDS: LANTUS PER UNIT CHARGE SQ SCH ×2 (08:29→20:36)
[2023-03-17] MEDS: INSULIN ASPART PER UNIT CHARGE SC SCH ×4 (08:29→20:36)
[2023-03-17] MEDS: ATORVASTATIN 10 MG TAB PO SCH (08:30)
[2023-03-17] MEDS: CEROVITE ADV FORMULA TAB PO SCH (08:30)
[2023-03-17] MEDS: SPIRONOLACTONE 25 MG TAB PO SCH (08:30)
[2023-03-17] MEDS: CETIRIZINE HCL 10 MG TABLET PO SCH (08:30)
[2023-03-17] MEDS: MAGNESIUM OXIDE 400 MG TAB PO SCH (08:30)
[2023-03-17] MEDS: allopurinoL 300 MG TAB PO SCH (08:31)
[2023-03-17] MEDS: ASPIRIN 81 MG ECTAB PO SCH (08:31)
[2023-03-17] MEDS: DULoxetine HCL 60 MG CAP PO SCH (08:31)
[2023-03-17] MEDS: DIGOXIN 0.125 MG TAB PO SCH (08:31)
[2023-03-17] MEDS: POTASSIUM CHLORIDE CRTAB 20 MEQ TABCR PO SCH (08:31)
[2023-03-17] MEDS: CHOLECALCIFEROL 1,000 UNITS 25 MCG TAB PO SCH (08:32)
[2023-03-17] MEDS: buPROPion XL 300 MG TABCR PO SCH (08:32)
[2023-03-17] MEDS: LIDOCAINE 5% 1 PATCH TD SCH (08:33)
[2023-03-17] MEDS: PANTOprazole 40 MG TAB PO SCH (08:33)
[2023-03-17] MEDS: ERYTHROMYCIN OP OINT 5 MG/GM 3.5 GM TUBE OPL SCH ×2 (08:33→20:37)
[2023-03-17] MEDS: METOPROLOL SUCC 50MG EXT REL TAB PO SCH ×2 (08:33→20:47)
[2023-03-17] MEDS: MICONAZOLE NITRATE POWDER 85 GM EXT SCH ×2 (08:33→20:36)
[2023-03-17] MEDS: ARTIFICIAL TEARS OP SCH ×4 (08:34→20:37)
[2023-03-17] MEDS: GABAPENTIN 300 MG CAP PO SCH ×4 (08:34→20:37)
[2023-03-17] MEDS: APIXABAN 5 MG TABLET PO SCH ×2 (08:34→20:48)
[2023-03-17] MEDS: SENNA 8.6 MG TAB PO SCH ×2 (08:34→20:37)
[2023-03-17] MEDS: VANCOMYCIN 25MG/ML FORTIFIED OPH DROPS OPL SCH ×4 (08:35→20:36)
--- NOTE | 2023-03-17 15:08 | Hospitalist Progress Note ---
Date of Service March 17, 2023 Assessment & Plan (1) ALMA ROSA (acute kidney injury): Plan: 72-year-old male with past med significant for type 2 diabetes, chronic kidney stage III hyperlipidemia, hypothyroidism, diabetic retinopathy, hypothyroidism, obstructive sleep apnea and COPD overlap syndrome, combined systolic and diastolic CHF, pulmonary hypertension, chronic right-sided heart failure, abdominal aortic atherosclerosis, paroxysmal atrial fibrillation, tach ybradycardia syndrome s/p pacemaker, morbid obesity, GERD, gout arthropathy, osteoarthritis, psoriasis, pulmonary embolism, MRSA colonization, tremor, PTSD, recurrent falls, history of COVID, depression, who is at [facility] comes because of frequent falls and also found to have an ALMA ROSA ALMA ROSA on chronic kidney disease 3 Presented with creatinine of 2.2 Baseline creatinine 1.4/1.6 Getting gentle fluids We will follow repeat labs Creatinine slightly better at 1.85 from 2.01 on admission Advised to drink more fluid-do not give any more IV fluid We will check PRP again tomorrow Lower extremity superficial wounds Wound care nurse evaluation and recommendation Dressing as per wound care Appreciate wound care nurse assessment and recommendation We will get podiatry input Frequent falls History of falls Says he is wheelchair-bound for last 1 and a month and getting the wheelchair is falling down PT OT-appreciate PT and OT evaluation. Recommended SNF/PCF Obstructive sleep apnea Currently only using oxygen the nighttime No acute issue-saturating normally on 2 L COPD Home inhalers-no evidence of exacerbation History of combined systolic and diastolic CHF Continue home Lasix 80 mg twice daily and spironolactone and potassium supplements and metoprolol succinate Getting gentle fluids monitor for volume overload History of A-fib History of tachybradycardia syndrome s/p pacemaker On metoprolol succinate and digoxin and Eliquis Will monitor Diabetes Continue home Lantus insulin sliding scale Monitor blood sugars and HbA1c levels Hypothyroidism On Synthyroid. Hypertension On metoprolol, and diuretics Will monitor Hyperlipidemia on statin GERD on omeprazole Depression duloxetine and bupropion Gout On allopurinol DVT prophylaxis on Eliquis Disposition med/telemetry Full code as per my discussion with the patient Admission and Anticipated Discharge Date Admission Date: March 15, 2023 Subjective 03/16/2023 The patient was seen and examined in medical telemetry unit He has been feeling much better and denies any significant symptoms 03/17/2023 The patient was seen and examined in medical telemetry unit He denies any symptoms He has been waiting for formal PT and OT evaluation Review of Systems Review of Systems: All systems reviewed and are unremarkable except as noted below Physical Exam Physical Exam: Lying in bed comfortably Constitutional: well developed, well nourished and + morbidly obese Eyes: PERRL, conjunctivae normal, anicteric sclerae ENMT: external ear and nose normal, oropharynx normal Neck: trachea midline, no thyromegaly Respiratory: no respiratory distress Auscultation: lungs clear to auscultation bilaterally Cardiovascular: Rate/Rhythm: regular rate and regular rhythm; not tachycardic Heart Sounds: normal S1 and normal S2; no murmur Extremities: + edema (Trace edema bilaterally) Gastrointestinal (Abdomen): Inspection/Auscultation: normal bowel sounds; abdomen not distended Percussion/Palpation: abdomen soft; abdomen nontender Musculoskeletal: Has bilateral foot and leg ulcer-as in the picture Neurologic: normal touch/pain/proprioception and moves all extremities; no focal motor deficits Lymphatic: no cervical or axillary lymphadenopathy Results & Data Results & Data Vital Signs (Past 12 Hours) Vital Signs Temp Pulse Pulse Resp BP Pulse Ox O2 Del Method 03/17/23 12:10 99/53 L 03/17/23 11:26 36.5 C 76 18 86/54 L 94 Nasal Cannula 03/17/23 08:31 70 03/17/23 07:30 36.5 C 74 16 113/79 95 Nasal Cannula 03/17/23 04:00 36.5 C 99 H 20 112/69 92 Nasal Cannula 03/17/23 03:52 Nasal Cannula O2 Flow Rate 03/17/23 12:10 03/17/23 11:26 2 03/17/23 08:31 03/17/23 07:30 2 03/17/23 04:00 4 03/17/23 03:52 2 Medications Administered Current Inpatient Medications Acetaminophen (Acetaminophen 325 Mg Tab) 650 mg PO Q4H PRN PRN Reason: Pain or Fever Stop: 04/14/23 08:17 Last Admin: 03/15/23 22:55 Dose: 650 mg Albuterol (Albuterol Hfa 8 Gm Inhaler) 2 puffs INH Q4H PRN PRN Reason: Shortness Of Breath Or Wheezing Stop: 04/14/23 08:43 Allopurinol (Allopurinol 300 Mg Tab) 300 mg PO DAILY OFE Stop: 04/14/23 08:59 Last Admin: 03/17/23 08:31 Dose: 300 mg Apixaban (Apixaban 5 Mg Tablet) 5 mg PO BID OFE Stop: 04/14/23 08:59 Last Admin: 03/17/23 08:34 Dose: 5 mg Artificial Tears (Artificial Tears) 1 drops OP QID OFE Stop: 04/14/23 08:59 Last Admin: 03/17/23 12:51 Dose: 1 drops Aspirin (Aspirin 81 Mg Ectab) 81 mg PO DAILY OFE Stop: 04/14/23 08:59 Last Admin: 03/17/23 08:31 Dose: 81 mg Atorvastatin Calcium (Atorvastatin 10 Mg Tab) 10 mg PO DAILY OFE Stop: 04/14/23 08:59 Last Admin: 03/17/23 08:30 Dose: 10 mg Bupropion HCl (Bupropion Xl 300 Mg Tabcr) 300 mg PO QAM OFE Stop: 04/14/23 08:59 Last Admin: 03/17/23 08:32 Dose: 300 mg Cetirizine HCl (Cetirizine Hcl 10 Mg Tablet) 10 mg PO DAILY OFE Stop: 04/14/23 08:59 Last Admin: 03/17/23 08:30 Dose: 10 mg Dextrose (Dextrose 50% 50 Ml Syringe) 25 - 50 ml IV UD PRN; Protocol PRN Reason: Hypoglycemia Protocol Stop: 04/14/23 08:17 Digoxin (Digoxin 0.125 Mg Tab) 0.0625 mg PO DAILY OFE Stop: 04/14/23 08:59 Last Admin: 03/17/23 08:31 Dose: 0.0625 mg Duloxetine HCl (Duloxetine Hcl 60 Mg Cap) 60 mg PO DAILY OFE Stop: 04/14/23 08:59 Last Admin: 03/17/23 08:31 Dose: 60 mg Erythromycin (Erythromycin Op Oint 5 Mg/Gm 3.5 Gm Tube) 1 appln OPL BID OFE Stop: 03/25/23 08:59 Last Admin: 03/17/23 08:33 Dose: 1 appln Furosemide (Furosemide 80 Mg Tab) 80 mg PO BID17 OFE Stop: 04/14/23 08:59 Last Admin: 03/15/23 10:08 Dose: Not Given Gabapentin (Gabapentin 300 Mg Cap) 300 mg PO QID OFE Stop: 04/14/23 08:59 Last Admin: 03/17/23 12:53 Dose: 300 mg Glucagon (Glucagon For Inj 1 Mg Vial) 1 mg SQ UD PRN; Protocol PRN Reason: Hypoglycemia Protocol Stop: 04/14/23 08:17 Glucose (Glucose 10 Tab/Tube) 4 - 8 tab PO UD PRN; Protocol PRN Reason: Hypoglycemia Treatment Stop: 04/14/23 08:17 Glucose (Glucose 40% Gel 15 Gm Tube) 15 - 30 gm PO UD PRN; Protocol PRN Reason: Hypoglycemia Protocol Stop: 04/14/23 08:17 Insulin Aspart (Insulin Aspart Per Unit Charge) 0 units SC ACHS OFE Stop: 04/14/23 08:17 Last Admin: 03/17/23 12:51 Dose: 12 units Insulin Glargine (Lantus Per Unit Charge) 80 units SQ BID OFE Stop: 04/14/23 08:59 Last Admin: 03/17/23 08:29 Dose: 80 units Levothyroxine Sodium (Levothyroxine Sodium 125 Mcg Tablet) 250 mcg PO DAILYBB OFE Stop: 04/14/23 08:59 Last Admin: 03/17/23 05:42 Dose: 250 mcg Lidocaine (Lidocaine 5% 1 Patch) 1 patch TD DAILY OFE Stop: 04/14/23 08:59 Last Admin: 03/17/23 08:33 Dose: 1 patch Magnesium Oxide (Magnesium Oxide 400 Mg Tab) 400 mg PO DAILY OFE Stop: 04/14/23 08:59 Last Admin: 03/17/23 08:30 Dose: 400 mg Metoprolol Succinate (Metoprolol Succ 50mg Ext Rel Tab) 100 mg PO BID OFE Stop: 04/14/23 08:59 Last Admin: 03/17/23 08:33 Dose: 100 mg Miconazole Nitrate (Miconazole Nitrate Powder 85 Gm) 1 appln EXT BID OFE Stop: 04/15/23 08:59 Last Admin: 03/17/23 08:33 Dose: 1 appln Miscellaneous (Carbohydrates For Hypoglycemia ) 15 - 30 gm PO UD PRN PRN Reason: Hypoglycemia Protocol Stop: 04/14/23 08:17 Miscellaneous (Remove Lidoderm Patch) 1 each N/A DAILY@2100 OFE Stop: 04/14/23 08:58 Last Admin: 03/16/23 20:56 Dose: 1 each Miscellaneous (*Cadexomer Iodine [Iodosorb] 0.9 % Gel)*Order Awaiting Action) 1 each N/A QS OFE Stop: 04/14/23 15:59 Last Admin: 03/17/23 08:35 Dose: Not Given Multivitamins/Minerals (Cerovite Adv Formula Tab) 1 tab PO DAILY OFE Stop: 04/14/23 08:59 Last Admin: 03/17/23 08:30 Dose: 1 tab Nitroglycerin (Nitroglycerin Sl 0.4 Mg/Tab Tab) 0.4 mg SL Q5M PRN PRN Reason: Chest Pain Stop: 04/14/23 08:17 Pantoprazole Sodium (Pantoprazole 40 Mg Tab) 40 mg PO DAILY OFE Stop: 04/14/23 08:59 Last Admin: 03/17/23 08:33 Dose: 40 mg Polyethylene Glycol (Polyethylene (Miralax) 17 Gm Pack) 17 gm PO DAILY PRN PRN Reason: Constipation Stop: 04/14/23 08:17 Potassium Chloride (Potassium Chloride Crtab 20 Meq Tabcr) 20 meq PO DAILY OFE Stop: 04/14/23 08:59 Last Admin: 03/17/23 08:31 Dose: 20 meq Potassium Chloride (Potassium Chloride Crtab 20 Meq Tabcr) 20 meq PO MoWe@0900 OFE Stop: 04/15/23 08:59 Last Admin: 03/16/23 10:05 Dose: 20 meq Sennosides (Senna 8.6 Mg Tab) 8.6 mg PO BID OFE Stop: 04/14/23 08:59 Last Admin: 03/17/23 08:34 Dose: 8.6 mg Spironolactone (Spironolactone 25 Mg Tab) 50 mg PO DAILY OFE Stop: 04/14/23 08:59 Last Admin: 03/17/23 08:30 Dose: 50 mg Tramadol HCl (Tramadol Hcl 50 Mg Tablet) 100 mg PO Q6H PRN PRN Reason: Pain Stop: 04/14/23 08:37 Vancomycin HCl (Vancomycin 25mg/Ml Fortified Oph Drops) 1 drops OPL QID OFE Stop: 03/25/23 09:59 Last Admin: 03/17/23 12:53 Dose: 1 drops Vitamin D (Cholecalciferol 1,000 Units 25 Mcg Tab) 1,000 units PO DAILY OFE Stop: 04/14/23 08:59 Last Admin: 03/17/23 08:32 Dose: 1,000 units
--- NOTE | 2023-03-17 22:06 | Orthopedic Consultation ---
Date of Consultation March 17, 2023 Assessment & Plan (1) Diabetic foot ulcer: Patient seen, evaluated, and treated. Reviewed multiple trauma to bilateral feet from multiple falls resulting in foot wounds. Wounds appear stable. No signs of infection. Continue with daily dressing changes. No intervention warranted at this time. Thank you for allowing me to participate in the care of this Patient. (2) Venous ulcers of both lower extremities: History of Present Illness Attending Physician: Mariah Vigil MD History of Present Illness Patient is a 72 year old male seen at bedside for right and left foot ulcers. History obtained by patient and prior documentation. Patient has a past medical history significant for type 2 diabetes, chronic kidney stage III hyperlipidemia, hypothyroidism, diabetic retinopathy, hypothyroidism, obstructive sleep apnea and COPD overlap syndrome, combined systolic and diastolic CHF, pulmonary hypertension, chronic right-sided heart failure, abdominal aortic atherosclerosis, paroxysmal atrial fibrillation, tachybradycardia syndrome s/p pacemaker, morbid obesity, GERD, gout arthropathy, osteoarthritis, psoriasis, pulmonary embolism, MRSA colonization, tremor, PTSD, recurrent falls, history of COVID, and depression. Patient resides at [facility] and was admitted through [facility] ED due to frequent falls and found to have an ALMA ROSA. Patient confined to wheelchair-bound for past 1 and half months. Frequent falls while getting up to wheelchair has resulted in some bruises to his toes. Allergies Allergy/AdvReac Type Severity Reaction Status Date / Time No Known Allergies Allergy Verified 02/17/23 11:08 Home Medications Medication Instructions Recorded Confirmed Type Multivitamin And Mineral 1 tab PO DAILY 03/15/23 03/15/23 History albuterol 90 mcg/actuation aerosol 2 mcg inhalation Q4H PRN Shortness 03/15/23 03/15/23 History inhaler Of Breath Or Wheezing allopurinol 300 mg tablet 300 mg PO DAILY 03/15/23 03/15/23 History apixaban 5 mg tablet (Eliquis) 5 mg PO BID 03/15/23 03/15/23 History aspirin 81 mg tablet 81 mg PO DAILY 03/15/23 03/15/23 History atorvastatin 10 mg tablet 10 mg PO DAILY 03/15/23 03/15/23 History bupropion HCl 300 mg 24 hr tablet, 300 mg PO QAM 03/15/23 03/15/23 History extended release cadexomer iodine 0.9 % topical gel 40 g topical Q3D 03/15/23 03/15/23 History (Iodosorb) carboxymethylcellulose sodium 0.5 1 drp ophthalmic (eye) QID 03/15/23 03/15/23 History % eye drops (Refresh Tears) cetirizine 10 mg tablet 10 mg PO DAILY 03/15/23 03/15/23 History cholecalciferol (vitamin D3) 25 25 mcg PO DAILY 03/15/23 03/15/23 History mcg (1,000 unit) tablet digoxin 62.5 mcg (0.0625 mg) tablet 62.5 mcg PO DAILY 03/15/23 03/15/23 History duloxetine 60 mg capsule,delayed 60 mg PO DAILY 03/15/23 03/15/23 History release epinephrine 0.3 mg/0.3 mL 0.3 mg IM UD PRN Allergic Reaction 03/15/23 03/15/23 History injection syringe erythromycin 5 mg/gram (0.5 %) eye 0.5 inch ophthalmic (eye) BID 03/15/23 03/15/23 History ointment furosemide 80 mg tablet 80 mg PO BID 03/15/23 03/15/23 History gabapentin 300 mg capsule 300 mg PO QID 03/15/23 03/15/23 History insulin glargine 100 unit/mL (3 80 unit subcut BID 03/15/23 03/15/23 History mL) subcutaneous pen (Lantus Solostar U-100 Insulin) insulin regular human 100 unit/mL 20 unit subcut AC 03/15/23 03/15/23 History (3 mL) subcutaneous pen (Novolin R FlexPen) levothyroxine 125 mcg tablet 250 mcg PO DAILY 03/15/23 03/15/23 History lidocaine 5 % topical patch 1 patch topical DAILY 03/15/23 03/15/23 History magnesium oxide 400 mg PO DAILY 03/15/23 03/15/23 History metoprolol succinate 50 mg 100 mg PO BID 03/15/23 03/15/23 History tablet,extended release 24 hr nitroglycerin 0.4 mg sublingual 0.4 mg sublingual DIRECTED PRN 03/15/23 03/15/23 History tablet (Nitrostat) Chest Pain nystatin 100,000 unit/gram topical 1 applic topical BID 03/15/23 03/15/23 History cream omeprazole 20 mg capsule,delayed 20 mg PO DAILY 03/15/23 03/15/23 History release potassium chloride 20 mEq 20 meq PO DAILY 03/15/23 03/15/23 History tablet,extended release sennosides 8.6 mg tablet (Senokot) 8.6 mg PO BID 03/15/23 03/15/23 History spironolactone 50 mg tablet 50 mg PO DAILY 03/15/23 03/15/23 History tramadol 100 mg tablet 100 mg PO Q6H PRN Pain 03/15/23 03/15/23 History vancomycin 2.5 mg/0.25 mL in 0.9 % 1 ml intraocular UD 03/15/23 03/15/23 History sodium chlor (PF) injection syringe vit C 250 mg-vit E 90 mg-zinc 40 1 tab PO BID 03/15/23 03/15/23 History mg-copper 1 [id number] capsule (PreserVision AREDS-2) Patient History Medical History Altered mental status Bifascicular block CAD (coronary artery disease) CKD (chronic kidney disease) stage 3, GFR 30-59 ml/min Claustrophobia COPD, moderate Entropion of left lower eyelid Fatty liver Gout History of fracture Thyroid cartilage in 2018 Interstitial lung disease Nephrolithiasis Osteoarthritis Pustular psoriasis Sarcoidosis possible- evaluated by pulmonary; felt no active sarcoidosis and would not merit steroid therapy given weight/diabetic state. 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 [employer] Pacer check 12/24/17 Status post incision and drainage Family History Mother Cancer Social History Smoking Status: Never smoker Second Hand Exposure: No; Do You Dip or Chew Tobacco: No; Hx Alcohol Use: No Hx Substance Use: No Preferred Language: Wallisian Communication Ability: Effective Visual Impairment: No Limitations Hearing Ability: Normal Bakery Demonstrator Required: No Beliefs That Will Affect Care: None marital status: Single Current Living Situation: Longterm Current Living Situation Comment: [facility] current occupational status: retired How many Children do You have: 1 How many Children do You have Comment: children are not involved with care much per pt Other Information That Helps Us Care for You: No Feels Safe at Home: Yes Safety Concerns: Feels Safe At This Time Diet: diabetic Diet Comment: FLUID RESTRICTION-1800ccs per pt report caffeine: No during the past year weight has: other Physical Activity Frequency: Does not Exercise Gender Identity: Male Assistive Devices: Oxygen - at Night and Wheelchair Review of Systems Review of Systems: All systems reviewed & are unremarkable except as noted in HPI & below Physical Exam Constitutional: cooperative and comfortable Respiratory: normal respiratory effort Skin: + ulcer (Full thickness 1st and 2nd right and left toes. No signs of infection. ) Neurologic: moves all extremities (Decreased epicritic sensation to bilateral lower extremities.) Psychiatric: Orientation: alert and oriented x 3 Results & Data Vital Signs (Past 12 Hours) Vital Signs Temp Pulse Resp BP BP Pulse Ox O2 Del Method 03/17/23 20:56 90 96/50 L 95 Room Air, Nasal Cannula 03/17/23 19:00 36.5 C 95 H 20 106/49 L 92 Nasal Cannula 03/17/23 15:14 36.5 C 16 114/58 L 96 Room Air 03/17/23 12:10 99/53 L 03/17/23 11:26 36.5 C 76 18 86/54 L 94 Nasal Cannula O2 Flow Rate 03/17/23 20:56 2 03/17/23 19:00 2 03/17/23 15:14 03/17/23 12:10 03/17/23 11:26 2
[2023-03-18] MEDS: LEVOTHYROXINE SODIUM 125 MCG TABLET PO SCH (06:02)
[2023-03-18 08:11] LABS: Basophils # (auto) 0.06 K/uL (0.00-0.20); Basophils % (auto) 0.9 %; Eosinophils # (auto) 0.34 K/uL (0.00-0.50); Hematocrit (blood only) 39.5 % (42.0-52.0); Hemoglobin 12.7 g/dl (14.0-18.0); Immature Granulocytes # (auto) 0.03 K/uL (0.01-0.20); Immature Granulocytes % (auto) 0.4 %; Lymphocytes # (auto) 1.27 K/uL (1.20-3.40); Lymphocytes % (auto) 18.6 %; Mean Corpuscular Hemoglobin 28.5 pg (25.0-34.0); Mean Corpuscular Hgb Conc 32.2 g/dL (32.0-36.0); Mean Corpuscular Volume 88.8 fL (80.0-100.0); Mean Platelet Volume 10.5 fL (9.4-12.4); Monocytes # (auto) 0.79 K/uL (0.11-0.59); Monocytes % (auto) 11.6 %; Neutrophils # (auto) 4.32 K/uL (1.40-6.50); Neutrophils % (auto) 63.5 %; Platelet Count 142 K/uL (130-400); RDW Coefficient of Variation 17.4 % (11.5-14.5); RDW Standard Deviation 56.4 fL (36.4-46.3); Red Blood Count 4.45 M/uL (4.70-6.10); White Blood Count 6.81 K/ul (4.8-10.8)
[2023-03-18 08:31] LABS: Anion Gap 7 (3-11); BUN Creatinine Ratio 24.2 (10-20); Blood Urea Nitrogen 32 mg/dl (6-23); Calcium 9.6 mg/dl (8.6-10.3); Carbon Dioxide 31 mmol/L (21-32); Chloride 101 mmol/L (98-107); Est GFR (African American) 62.5 ml/min; Est GFR (Non-African American) 53.9 ml/min; Glucose 87 mg/dl (70-99(Fasting)); Potassium 3.7 mmol/L (3.5-5.1); Sodium 139 mmol/L (136-145)
[2023-03-18] MEDS: APIXABAN 5 MG TABLET PO SCH ×2 (09:01→20:52)
[2023-03-18] MEDS: ARTIFICIAL TEARS OP SCH ×4 (09:01→20:50)
[2023-03-18] MEDS: ASPIRIN 81 MG ECTAB PO SCH (09:02)
[2023-03-18] MEDS: DIGOXIN 0.125 MG TAB PO SCH (09:02)
[2023-03-18] MEDS: ATORVASTATIN 10 MG TAB PO SCH (09:02)
[2023-03-18] MEDS: buPROPion XL 300 MG TABCR PO SCH (09:02)
[2023-03-18] MEDS: CETIRIZINE HCL 10 MG TABLET PO SCH (09:02)
[2023-03-18] MEDS: CHOLECALCIFEROL 1,000 UNITS 25 MCG TAB PO SCH (09:02)
[2023-03-18] MEDS: DULoxetine HCL 60 MG CAP PO SCH (09:03)
[2023-03-18] MEDS: ERYTHROMYCIN OP OINT 5 MG/GM 3.5 GM TUBE OPL SCH ×2 (09:03→20:53)
[2023-03-18] MEDS: LIDOCAINE 5% 1 PATCH TD SCH (09:03)
[2023-03-18] MEDS: MAGNESIUM OXIDE 400 MG TAB PO SCH (09:03)
[2023-03-18] MEDS: METOPROLOL SUCC 50MG EXT REL TAB PO SCH ×2 (09:03→20:51)
[2023-03-18] MEDS: GABAPENTIN 300 MG CAP PO SCH ×4 (09:03→20:50)
[2023-03-18] MEDS: POTASSIUM CHLORIDE CRTAB 20 MEQ TABCR PO SCH ×2 (09:04)
[2023-03-18] MEDS: CEROVITE ADV FORMULA TAB PO SCH (09:04)
[2023-03-18] MEDS: SENNA 8.6 MG TAB PO SCH ×2 (09:04→20:51)
[2023-03-18] MEDS: MICONAZOLE NITRATE POWDER 85 GM EXT SCH ×2 (09:04→20:51)
[2023-03-18] MEDS: PANTOprazole 40 MG TAB PO SCH (09:04)
[2023-03-18] MEDS: SPIRONOLACTONE 25 MG TAB PO SCH (09:04)
[2023-03-18] MEDS: VANCOMYCIN 25MG/ML FORTIFIED OPH DROPS OPL SCH ×4 (09:25→21:26)
[2023-03-18] MEDS: LANTUS PER UNIT CHARGE SQ SCH ×2 (09:25→20:49)
[2023-03-18] MEDS: INSULIN ASPART PER UNIT CHARGE SC SCH ×4 (09:33→20:49)
[2023-03-18] MEDS: allopurinoL 300 MG TAB PO SCH (10:46)
[2023-03-18] MEDS: traMADol HCL 50 MG TABLET PO PRN (12:13)
--- NOTE | 2023-03-18 16:16 | Hospitalist Progress Note ---
Date of Service March 18, 2023 Assessment & Plan (1) ALMA ROSA (acute kidney injury): Plan: 72-year-old male with past med significant for type 2 diabetes, chronic kidney stage III hyperlipidemia, hypothyroidism, diabetic retinopathy, hypothyroidism, obstructive sleep apnea and COPD overlap syndrome, combined systolic and diastolic CHF, pulmonary hypertension, chronic right-sided heart failure, abdominal aortic atherosclerosis, paroxysmal atrial fibrillation, tach ybradycardia syndrome s/p pacemaker, morbid obesity, GERD, gout arthropathy, osteoarthritis, psoriasis, pulmonary embolism, MRSA colonization, tremor, PTSD, recurrent falls, history of COVID, depression, who is at [facility] comes because of frequent falls and also found to have an ALMA ROSA ALMA ROSA on CKD III Presented with creatinine of 2.2 Baseline creatinine 1.4/1.6 Received gentle IV fluids Cr 1.32 today Resumed Lasix at lower dose Monitor renal function Avoid nephrotoxic agents as able Follows with nephrology as outpatient Lower extremity superficial wounds Wound care nurse evaluation and recommendation Dressing as per wound care Appreciate wound care nurse and podiatry input Monitor Frequent falls Says he is wheelchair-bound for last 1 and a month and getting the wheelchair is falling down Continue PT OT: Recommended SNF/PCF Obstructive sleep apnea Chronic oxygen dependency Uses supplemental oxygen at bedtime- 2L COPD Home inhalers-no evidence of exacerbation H/O Combined systolic and diastolic CHF Was on Lasix 80 mg BID and spironolactone and potassium supplements and metoprolol succinate Resume Lasix at lower dose 40 mg twice a day due to ALMA ROSA Monitor volume status History of A-fib History of tachybradycardia syndrome s/p pacemaker Continue metoprolol succinate and digoxin and Eliquis Monitor Diabetes mellitus type II HbA1c 9.2 Continue insulin per protocol Monitor BGs Hypothyroidism Continue levothyroxine Hypertension Continue metoprolol Hyperlipidemia Continue statin GERD Continue PPI Depression Continue duloxetine and bupropion Gout On allopurinol DVT Px: Eliquis Code Status Full Code Disposition Case Management o help with discharge planning Admission and Anticipated Discharge Date Admission Date: March 15, 2023 Subjective Patient is seen and examined at bedside Offers no new complaints Denies any chest pain, dyspnea, dizziness, nausea, vomiting, abdominal pain Renal function improved No other complaints Waiting for rehab placement Review of Systems Review of Systems: All systems reviewed & are unremarkable except as noted in Subjective Physical Exam Physical Exam: Physical Exam: Vitals signs as noted above General Appearance:Morbidly Obese, no apparent distress Head: normocephalic, Atraumatic Eyes: normal inspection, EOMI Neck: supple, Trachea midline Respiratory/Chest: Normal breath sounds, CTA, No accessory muscle use Cardiovascular: S1, S2, No murmur Abdomen/GI:Soft, Non tender, Bowel sounds present Extremities/Musculoskeletal:normal inspection, 1+ B/L LE edema, +Chronic venous stasis changes Neurologic/Psych:AAOX3, grossly no focal neurological deficits Skin: normal color, warm Results & Data Results & Data Vital Signs (Past 12 Hours) Vital Signs Temp Pulse Resp BP Pulse Ox O2 Del Method O2 Flow Rate 03/18/23 15:00 36.5 C 77 16 136/90 94 Room Air 03/18/23 13:25 Nasal Cannula 2 03/18/23 11:15 36.6 C 86 16 99/61 L 94 Room Air 03/18/23 07:48 36.9 C 91 H 20 115/71 94 Nasal Cannula 2 Laboratory Results Short CBC 03/18/23 Range/Units 07:27 WBC 6.81 (4.8-10.8) K/ul Hgb 12.7 L (14.0-18.0) g/dl Hct 39.5 L (42.0-52.0) % Plt Count 142 (130-400) K/uL BMP 03/18/23 07:27 Sodium 139 Potassium 3.7 Chloride 101 Carbon Dioxide 31 BUN 32 H Creatinine 1.32 Glucose 87 Calcium 9.6
[2023-03-18] MEDS: FUROSEMIDE 40 MG TAB PO SCH (18:09)
[2023-03-19] MEDS: traMADol HCL 50 MG TABLET PO PRN (01:45)
[2023-03-19] MEDS: LEVOTHYROXINE SODIUM 125 MCG TABLET PO SCH (06:05)
[2023-03-19] MEDS: CEROVITE ADV FORMULA TAB PO SCH (09:07)
[2023-03-19] MEDS: GABAPENTIN 300 MG CAP PO SCH ×4 (09:07→20:06)
[2023-03-19] MEDS: DIGOXIN 0.125 MG TAB PO SCH (09:08)
[2023-03-19] MEDS: POTASSIUM CHLORIDE CRTAB 20 MEQ TABCR PO SCH (09:08)
[2023-03-19] MEDS: APIXABAN 5 MG TABLET PO SCH ×2 (09:08→20:06)
[2023-03-19] MEDS: METOPROLOL SUCC 50MG EXT REL TAB PO SCH ×2 (09:08→20:04)
[2023-03-19] MEDS: FUROSEMIDE 40 MG TAB PO SCH (09:08)
[2023-03-19] MEDS: LIDOCAINE 5% 1 PATCH TD SCH (09:09)
[2023-03-19] MEDS: allopurinoL 300 MG TAB PO SCH (09:09)
[2023-03-19] MEDS: ATORVASTATIN 10 MG TAB PO SCH (09:09)
[2023-03-19] MEDS: PANTOprazole 40 MG TAB PO SCH (09:09)
[2023-03-19] MEDS: DULoxetine HCL 60 MG CAP PO SCH (09:09)
[2023-03-19] MEDS: ARTIFICIAL TEARS OP SCH ×4 (09:10→20:06)
[2023-03-19] MEDS: SPIRONOLACTONE 25 MG TAB PO SCH (09:10)
[2023-03-19] MEDS: buPROPion XL 300 MG TABCR PO SCH (09:10)
[2023-03-19] MEDS: MAGNESIUM OXIDE 400 MG TAB PO SCH (09:10)
[2023-03-19] MEDS: CETIRIZINE HCL 10 MG TABLET PO SCH (09:10)
[2023-03-19] MEDS: ASPIRIN 81 MG ECTAB PO SCH (09:10)
[2023-03-19] MEDS: CHOLECALCIFEROL 1,000 UNITS 25 MCG TAB PO SCH (09:10)
[2023-03-19] MEDS: ERYTHROMYCIN OP OINT 5 MG/GM 3.5 GM TUBE OPL SCH ×2 (09:11→20:05)
[2023-03-19] MEDS: MICONAZOLE NITRATE POWDER 85 GM EXT SCH ×2 (09:11→20:07)
[2023-03-19] MEDS: ACETAMINOPHEN 325 MG TAB PO PRN (09:24)
[2023-03-19] MEDS: LANTUS PER UNIT CHARGE SQ SCH ×2 (09:25→20:19)
[2023-03-19] MEDS: SENNA 8.6 MG TAB PO SCH ×2 (09:25→20:07)
[2023-03-19] MEDS: INSULIN ASPART PER UNIT CHARGE SC SCH ×4 (09:25→20:10)
[2023-03-19] MEDS: VANCOMYCIN 25MG/ML FORTIFIED OPH DROPS OPL SCH ×4 (09:25→20:04)
[2023-03-19 10:35] LABS: Anion Gap 7 (3-11); BUN Creatinine Ratio 20.9 (10-20); Blood Urea Nitrogen 32 mg/dl (6-23); Calcium 9.5 mg/dl (8.6-10.3); Carbon Dioxide 29 mmol/L (21-32); Chloride 100 mmol/L (98-107); Est GFR (African American) 52.3 ml/min; Est GFR (Non-African American) 45.1 ml/min; Glucose 183 mg/dl (70-99(Fasting)); Potassium 4.1 mmol/L (3.5-5.1); Sodium 136 mmol/L (136-145)
--- NOTE | 2023-03-19 15:44 | Cardiology Consultation ---
Date of Consultation March 19, 2023 Assessment & Plan (1) Pacemaker complications: (2) Chronic atrial fibrillation: (3) Combined systolic and diastolic congestive heart failure: (4) HTN, goal below 130/80: (5) Dyslipidemia, goal LDL below 70: Plan Cardiology consultation requested due to suspected pacemaker failure, abnormal pacemaker spikes on continuous telemetry monitoring. Personal review of the patient's continuous electronic device monitor reveals pacemaker spikes associated with attempted antitachycardia pacing (unsuccessful). I have contacted the [employer] Cattle Care Worker to reprogram the device . Continue metoprolol succinate 100 mg twice per day along with digoxin for rate control. Continue anticoagulation with Apixaban (Eliquis), dosing of 5 mg twice per day is appropriate for patient's age and weight. Supervising Physician Co-Signing Physician Notes Supervising Physician Attestation: I have personally performed a history and physical examination on the patient. I agree with the physician family and divorce legal assistant's findings and plan as documented with the following additions. Subjective: Subjective cardiac complaints. Chronic degree of lower extremity edema not much different from his baseline. Exam: Left infraclavicular pacemaker pocket clean dry and intact Data: Telemetry data reviewed. Although patient has predominantly been in atrial fibrillation, he is actually in sinus rhythm at present and his EKG reflects atrial pacing with long AV delay. The concerns of on telemetry with regards to pacemaker spikes not associated QRS complex reflect intermittent antitachycardia pacing. Device interrogated with the assistance of the [employer] employee's representative. Device reprogrammed to disable antitachycardia pacing which has not been effective for the patient. He is currently in sinus rhythm and AV sequential paced. Generator longevity is stable. No need for generator change at present. Assessment and Plan: As noted above. Mio Camarena DO History of Present Illness Reason for Consultation: Suspected pacemaker failure Requesting Physician: Dr. Dae Leone MD Attending Physician: Dr. Dae Leone MD History of Present Illness Mr. Marcial Andujar is a very pleasant yet medically complex 73-year-old male who was readmitted to [facility] from [facility] on March 15, 2023 after experiencing multiple falls secondary to bilateral leg weakness, without associated loss of consciousness. Laboratory work revealed acute on chronic renal dysfunction for which the patient's diuret ics were held, receiving IV fluid administration, now back on diuretics, reduced dose furosemide. Lower extremity wounds are being dressed as per wound care. Cardiology consultation requested due to suspected pacemaker failure, abnormal pacemaker spikes on continuous telemetry monitoring. Last available pacemaker interrogation occurred on November 10, 2022, revealing appropriate function, 1.5 years remaining longevity. Atrial fibrillation noted with a 94.7% burden. Average ventricular rates both during the day and night have increased some since the spring. Atrial therapies are turned on, burst+, ramp, and appear to be unsuccessful. Problem List: Paroxysmal atrial fibrillation (AF) and atrial flutter (AFL) - First diagnosed in 2011 - Failed to tolerate dronedarone - Amiodarone prescribed in 2012, discontinued in December 2013 by Pulmonary Medicine secondary to concerns for pulmonary toxicity. - Recurrent AFL , converting to NSR with the addition of dofetilide. - Recurrent AF, . - Status post May 10, [address] Flynn at [facility]. - Successful radiofrequency ablation of the cavtricuspid isthmus with creation of a bidirectional isthmus conduction block under conscious sedation. - He did not undergo a PVI ablation because of mild hypoxemia, volume overload on presentation. 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 Diastolic dysfunction. Right heart failure Hypertension Dyslipidemia. Type 2 diabetes mellitus Chronic kidney disease Morbid obesity Obstructive sleep apnea, untreated Nocturnal hypoxemia COPD History of bilateral pulmonary embolus Fatty infiltration of the liver. GERD Hypothyroidism Interstitial lung disease Depression. PTSD. Gouty arthropathy Psoriasis Depression Primary osteoarthritis of both knees Tremor Bilateral carpal tunnel Family History: Negative for premature CAD, sudden cardiac or CVA. Social History: Negative for tobacco use. Occasional excessive alcohol intake. Retired. [employer], [place] [employer]. Resident of [facility]. Allergies Allergy/AdvReac Type Severity Reaction Status Date / Time No Known Allergies Allergy Verified 02/17/23 11:08 Home Medications Medication Instructions Recorded Confirmed Type Multivitamin And Mineral 1 tab PO DAILY 03/15/23 03/15/23 History albuterol 90 mcg/actuation aerosol 2 mcg inhalation Q4H PRN Shortness 03/15/23 03/15/23 History inhaler Of Breath Or Wheezing allopurinol 300 mg tablet 300 mg PO DAILY 03/15/23 03/15/23 History apixaban 5 mg tablet (Eliquis) 5 mg PO BID 03/15/23 03/15/23 History aspirin 81 mg tablet 81 mg PO DAILY 03/15/23 03/15/23 History atorvastatin 10 mg tablet 10 mg PO DAILY 03/15/23 03/15/23 History bupropion HCl 300 mg 24 hr tablet, 300 mg PO QAM 03/15/23 03/15/23 History extended release cadexomer iodine 0.9 % topical gel 40 g topical Q3D 03/15/23 03/15/23 History (Iodosorb) carboxymethylcellulose sodium 0.5 1 drp ophthalmic (eye) QID 03/15/23 03/15/23 History % eye drops (Refresh Tears) cetirizine 10 mg tablet 10 mg PO DAILY 03/15/23 03/15/23 History cholecalciferol (vitamin D3) 25 25 mcg PO DAILY 03/15/23 03/15/23 History mcg (1,000 unit) tablet digoxin 62.5 mcg (0.0625 mg) tablet 62.5 mcg PO DAILY 03/15/23 03/15/23 History duloxetine 60 mg capsule,delayed 60 mg PO DAILY 03/15/23 03/15/23 History release epinephrine 0.3 mg/0.3 mL 0.3 mg IM UD PRN Allergic Reaction 03/15/23 03/15/23 History injection syringe erythromycin 5 mg/gram (0.5 %) eye 0.5 inch ophthalmic (eye) BID 03/15/23 03/15/23 History ointment furosemide 80 mg tablet 80 mg PO BID 03/15/23 03/15/23 History gabapentin 300 mg capsule 300 mg PO QID 03/15/23 03/15/23 History insulin glargine 100 unit/mL (3 80 unit subcut BID 03/15/23 03/15/23 History mL) subcutaneous pen (Lantus Solostar U-100 Insulin) insulin regular human 100 unit/mL 20 unit subcut AC 03/15/23 03/15/23 History (3 mL) subcutaneous pen (Novolin R FlexPen) levothyroxine 125 mcg tablet 250 mcg PO DAILY 03/15/23 03/15/23 History lidocaine 5 % topical patch 1 patch topical DAILY 03/15/23 03/15/23 History magnesium oxide 400 mg PO DAILY 03/15/23 03/15/23 History metoprolol succinate 50 mg 100 mg PO BID 03/15/23 03/15/23 History tablet,extended release 24 hr nitroglycerin 0.4 mg sublingual 0.4 mg sublingual DIRECTED PRN 03/15/23 03/15/23 History tablet (Nitrostat) Chest Pain nystatin 100,000 unit/gram topical 1 applic topical BID 03/15/23 03/15/23 History cream omeprazole 20 mg capsule,delayed 20 mg PO DAILY 03/15/23 03/15/23 History release potassium chloride 20 mEq 20 meq PO DAILY 03/15/23 03/15/23 History tablet,extended release sennosides 8.6 mg tablet (Senokot) 8.6 mg PO BID 03/15/23 03/15/23 History spironolactone 50 mg tablet 50 mg PO DAILY 03/15/23 03/15/23 History tramadol 100 mg tablet 100 mg PO Q6H PRN Pain 03/15/23 03/15/23 History vancomycin 2.5 mg/0.25 mL in 0.9 % 1 ml intraocular UD 03/15/23 03/15/23 History sodium chlor (PF) injection syringe vit C 250 mg-vit E 90 mg-zinc 40 1 tab PO BID 03/15/23 03/15/23 History mg-copper 1 [id number] capsule (PreserVision AREDS-2) Patient History Medical History Altered mental status Bifascicular block CAD (coronary artery disease) CKD (chronic kidney disease) stage 3, GFR 30-59 ml/min Claustrophobia COPD, moderate Entropion of left lower eyelid Fatty liver Gout History of fracture Thyroid cartilage in 2019 Interstitial lung disease Nephrolithiasis Osteoarthritis Pustular psoriasis Sarcoidosis possible- evaluated by pulmonary; felt no active sarcoidosis and would not merit steroid therapy given weight/diabetic state. Sleep apnea CPAP Solitary pulmonary nodule UTI (urinary tract infection) Venous ulcers of both lower extremities Surgical History H/O cardiac radiofrequency ablation H/O prior ablation treatment History of arthroscopic knee surgery History of bronchoscopy History of cataract surgery local anesthesia only per pt History of cholecystectomy History of extraction of renal calculus History of lung surgery thoracoscopy, right VATS, wedge resection History of umbilical hernia repair Hx of carpal tunnel repair Pacemaker Implanted 02/2017 secondary to Sinus node dysfunction/tachy jared syndrome/3rd degree AVB [employer] Pacer check 12/24/17 Status post incision and drainage Family History Mother Cancer Social History Smoking Status: Never smoker Second Hand Exposure: No; Do You Dip or Chew Tobacco: No; Hx Alcohol Use: No Hx Substance Use: No Preferred Language: Ukrainian Communication Ability: Effective Visual Impairment: No Limitations Hearing Ability: Normal Marketing Clerk Required: No Beliefs That Will Affect Care: None marital status: Single Current Living Situation: Prison Current Living Situation Comment: [facility] current occupational status: retired How many Children do You have: 1 How many Children do You have Comment: children are not involved with care much per pt Other Information That Helps Us Care for You: No Feels Safe at Home: Yes Safety Concerns: Feels Safe At This Time Diet: diabetic Diet Comment: FLUID RESTRICTION-1800ccs per pt report caffeine: No during the past year weight has: other Physical Activity Frequency: Does not Exercise Gender Identity: Male Assistive Devices: Oxygen - at Night and Wheelchair Review of Systems Review of Systems: Complete Review of Systems is as stated above, negative, or noncontributory. Physical Exam Physical Exam: General: Alert and oriented x3. Comfortable. Cooperative. No acute distress. Skin: Multiple excoriations, multiple dressed wounds on the lower extremities, dressings not removed. Eyes: PER HENT: Normocephalic. Atraumatic. Neck: No carotid bruits. No overt JVD. Heart: Distant heart sounds. Irregularly irregular at 90 bpm. No murmur appreciated. Lungs: Diminished. Decrease. Clear. Abdomen: +BS. Soft. Nontender. No masses. No organomegaly. Valentine catheter in place. Extremities: Mild nonpitting edema. Stasis changes. See above. No cyanosis. Pulses: radial=2/4, posterior tibial=0/4. Limited neurological examination: No focal deficit. Results & Data Vital Signs (Past 12 Hours) Vital Signs Temp Pulse Pulse Resp BP Pulse Ox O2 Del Method 03/19/23 09:15 Nasal Cannula 03/19/23 11:48 36.8 C 74 16 98/65 L 96 Room Air 03/19/23 08:39 93 Nasal Cannula 03/19/23 08:36 37.3 C 91 H 16 103/67 91 Room Air 03/19/23 07:20 90 03/19/23 04:35 37.1 C 100 H 20 103/54 L 92 Nasal Cannula O2 Flow Rate 03/19/23 09:15 2 03/19/23 11:48 03/19/23 08:39 2 03/19/23 08:36 03/19/23 07:20 03/19/23 04:35 2 Laboratory Results Comprehensive Metabolic Panel 03/19/23 Range/Units 09:51 Sodium 136 (136-145) mmol/L Potassium 4.1 (3.5-5.1) mmol/L Chloride 100 (98-107) mmol/L Carbon Dioxide 29 (21-32) mmol/L BUN 32 H (6-23) mg/dl Creatinine 1.53 H (0.6-1.4) mg/dl Glucose 183 H (70-99(Fasting)) mg/dl Calcium 9.5 (8.6-10.3) mg/dl Intake and Output 03/19/23 03/19/23 03/19/23 06:59 14:59 22:59 Intake Total 300 / 300 Output Total 1100 0 Balance -1100 / -1400 300 / 300 Intake: Oral 300 / 300 Output: Urine Amount (Catheter) 10990 Valentine/Indwelling 1099 Other: Weight 155.3 kg
--- NOTE | 2023-03-19 16:30 | Hospitalist Progress Note ---
Date of Service March 19, 2023 Assessment & Plan (1) ALMA ROSA (acute kidney injury): Plan: 72-year-old male with past med significant for type 2 diabetes, chronic kidney stage III hyperlipidemia, hypothyroidism, diabetic retinopathy, hypothyroidism, obstructive sleep apnea and COPD overlap syndrome, combined systolic and diastolic CHF, pulmonary hypertension, chronic right-sided heart failure, abdominal aortic atherosclerosis, paroxysmal atrial fibrillation, tach ybradycardia syndrome s/p pacemaker, morbid obesity, GERD, gout arthropathy, osteoarthritis, psoriasis, pulmonary embolism, MRSA colonization, tremor, PTSD, recurrent falls, history of COVID, depression, who is at [facility] comes because of frequent falls and also found to have an ALMA ROSA ALMA ROSA on CKD III Presented with creatinine of 2.2 Baseline creatinine 1.4/1.6 Received gentle IV fluids Cr 1.5 today Resumed Lasix at lower dose 40mg daily Monitor renal function Avoid nephrotoxic agents as able Follows with nephrology as outpatient Suspected pacemaker failure Requested pacemaker interrogation Continue to monitor on telemetry Cardiology consulted Lower extremity superficial wounds Wound care nurse evaluation and recommendation Dressing as per wound care Appreciate wound care nurse and podiatry input Monitor Frequent falls Says he is wheelchair-bound for last 1 and a month and getting the wheelchair is falling down Continue PT OT: Recommended SNF/PCF Obstructive sleep apnea Chronic oxygen dependency Uses supplemental oxygen at bedtime- 2L COPD Home inhalers-no evidence of exacerbation H/O Combined systolic and diastolic CHF Was on Lasix 80 mg BID and spironolactone and potassium supplements and metoprolol succinate Resume Lasix at lower dose 40 mg daily due to ALMA ROSA Monitor volume status, renal function closely History of A-fib History of tachybradycardia syndrome s/p pacemaker Continue metoprolol succinate and digoxin and Eliquis Monitor Diabetes mellitus type II HbA1c 9.2 Continue insulin per protocol Monitor BGs Hypothyroidism Continue levothyroxine Hypertension Continue metoprolol Hyperlipidemia Continue statin GERD Continue PPI Depression Continue duloxetine and bupropion Gout On allopurinol DVT Px: Eliquis Code Status Full Code Disposition Case Management o help with discharge planning Admission and Anticipated Discharge Date Admission Date: March 15, 2023 Subjective Patient is seen and examined at bedside Lying comfortably during my encounter RN noted pacemaker has failed to capture on monitor x2 Patient offers no new complaints Denies any chest pain, dyspnea, dizziness, nausea, vomiting, abdominal pain Review of Systems Review of Systems: All systems reviewed & are unremarkable except as noted in Subjective Physical Exam Physical Exam: Physical Exam: Vitals signs as noted above General Appearance:Morbidly Obese, no apparent distress Head: normocephalic, Atraumatic Eyes: normal inspection, EOMI Neck: supple, Trachea midline Respiratory/Chest: Normal breath sounds, CTA, No accessory muscle use Cardiovascular: S1, S2, No murmur Abdomen/GI:Soft, Non tender, Bowel sounds present Extremities/Musculoskeletal:normal inspection, 1+ B/L LE edema, +Chronic venous stasis changes Neurologic/Psych:AAOX3, grossly no focal neurological deficits Skin: normal color, warm Results & Data Results & Data Vital Signs (Past 12 Hours) Vital Signs Temp Pulse Pulse Resp BP Pulse Ox O2 Del Method 03/19/23 16:09 77 03/19/23 09:15 Nasal Cannula 03/19/23 11:48 36.8 C 74 16 98/65 L 96 Room Air 03/19/23 08:39 93 Nasal Cannula 03/19/23 08:36 37.3 C 91 H 16 103/67 91 Room Air 03/19/23 07:20 90 03/19/23 04:35 37.1 C 100 H 20 103/54 L 92 Nasal Cannula O2 Flow Rate 03/19/23 16:09 03/19/23 09:15 2 03/19/23 11:48 03/19/23 08:39 2 03/19/23 08:36 03/19/23 07:20 03/19/23 04:35 2 Laboratory Results [facility] 03/19/23 09:51 Sodium 136 Potassium 4.1 Chloride 100 Carbon Dioxide 29 BUN 32 H Creatinine 1.53 H Glucose 183 H Calcium 9.5
--- NOTE | 2023-03-20 01:07 | Communication Note ---
Date of Service: March 20, 2023 Hematochezia noted after hard bowel movement as per RN. History hemorrhoids as per RN. Patient without abdominal pain complaints. AP LGIB Possible hemorrhoidal bleed. CBC now Hold antiplatelet and NOAC Rx for now and resume if H&H stable
[2023-03-20 02:13] LABS: Basophils # (auto) 0.06 K/uL (0.00-0.20); Basophils % (auto) 0.8 %; Eosinophils # (auto) 0.29 K/uL (0.00-0.50); Eosinophils % (auto) 3.9 %; Hematocrit (blood only) 37.8 % (42.0-52.0); Hemoglobin 12.2 g/dl (14.0-18.0); Immature Granulocytes # (auto) 0.06 K/uL (0.01-0.20); Immature Granulocytes % (auto) 0.8 %; Lymphocytes # (auto) 1.22 K/uL (1.20-3.40); Lymphocytes % (auto) 16.6 %; Mean Corpuscular Hgb Conc 32.3 g/dL (32.0-36.0); Mean Corpuscular Volume 89.8 fL (80.0-100.0); Mean Platelet Volume 10.6 fL (9.4-12.4); Monocytes # (auto) 0.85 K/uL (0.11-0.59); Monocytes % (auto) 11.6 %; Neutrophils # (auto) 4.87 K/uL (1.40-6.50); Neutrophils % (auto) 66.3 %; Platelet Count 153 K/uL (130-400); RDW Coefficient of Variation 18.3 % (11.5-14.5); RDW Standard Deviation 58.5 fL (36.4-46.3); Red Blood Count 4.21 M/uL (4.70-6.10); White Blood Count 7.35 K/ul (4.8-10.8)
[2023-03-20 02:30] LABS: Anion Gap 8 (3-11); BUN Creatinine Ratio 20.7 (10-20); Blood Urea Nitrogen 35 mg/dl (6-23); Calcium 9.6 mg/dl (8.6-10.3); Carbon Dioxide 29 mmol/L (21-32); Chloride 99 mmol/L (98-107); Est GFR (African American) 46.3 ml/min; Glucose 117 mg/dl (70-99(Fasting)); Sodium 136 mmol/L (136-145)
[2023-03-20 02:41] LABS: Partial Thromboplastin Ratio 1.2; Partial Thromboplastin Time 34.8 Seconds (21.0-31.0)
[2023-03-20] MEDS: LEVOTHYROXINE SODIUM 125 MCG TABLET PO SCH (05:56)
[2023-03-20 07:50] LABS: Hematocrit (blood only) 35.7 % (42.0-52.0); Hemoglobin 11.7 g/dl (14.0-18.0)
[2023-03-20] MEDS: GABAPENTIN 300 MG CAP PO SCH ×4 (08:56→20:31)
[2023-03-20] MEDS: CHOLECALCIFEROL 1,000 UNITS 25 MCG TAB PO SCH (08:57)
[2023-03-20] MEDS: DOCUSATE SODIUM/SENNA 50/8.6MG TAB PO SCH ×2 (08:57→20:32)
[2023-03-20] MEDS: CEROVITE ADV FORMULA TAB PO SCH (08:57)
[2023-03-20] MEDS: POTASSIUM CHLORIDE CRTAB 20 MEQ TABCR PO SCH (08:57)
[2023-03-20] MEDS: allopurinoL 300 MG TAB PO SCH (08:57)
[2023-03-20] MEDS: CETIRIZINE HCL 10 MG TABLET PO SCH (08:57)
[2023-03-20] MEDS: ARTIFICIAL TEARS OP SCH ×4 (08:57→20:31)
[2023-03-20] MEDS: ERYTHROMYCIN OP OINT 5 MG/GM 3.5 GM TUBE OPL SCH ×2 (08:57→20:31)
[2023-03-20] MEDS: DULoxetine HCL 60 MG CAP PO SCH (08:58)
[2023-03-20] MEDS: MAGNESIUM OXIDE 400 MG TAB PO SCH (08:58)
[2023-03-20] MEDS: METOPROLOL SUCC 50MG EXT REL TAB PO SCH ×2 (08:58→20:32)
[2023-03-20] MEDS: SPIRONOLACTONE 25 MG TAB PO SCH (08:58)
[2023-03-20] MEDS: FUROSEMIDE 40 MG TAB PO SCH (08:58)
[2023-03-20] MEDS: PANTOprazole 40 MG TAB PO SCH (08:59)
[2023-03-20] MEDS: DIGOXIN 0.125 MG TAB PO SCH (08:59)
[2023-03-20] MEDS: MICONAZOLE NITRATE POWDER 85 GM EXT SCH ×2 (08:59→20:32)
[2023-03-20] MEDS: ATORVASTATIN 10 MG TAB PO SCH (08:59)
[2023-03-20] MEDS: LIDOCAINE 5% 1 PATCH TD SCH (08:59)
[2023-03-20] MEDS: buPROPion XL 300 MG TABCR PO SCH (08:59)
[2023-03-20] MEDS: LANTUS PER UNIT CHARGE SQ SCH ×2 (09:26→20:29)
[2023-03-20] MEDS: VANCOMYCIN 25MG/ML FORTIFIED OPH DROPS OPL SCH ×4 (09:26→20:31)
[2023-03-20] MEDS: INSULIN ASPART PER UNIT CHARGE SC SCH ×4 (09:26→20:25)
--- NOTE | 2023-03-20 10:26 | Cardiology Progress Note ---
Date of Service March 20, 2023 Assessment & Plan (1) Pacemaker complications: (2) Chronic atrial fibrillation: (3) Combined systolic and diastolic congestive heart failure: (4) HTN, goal below 130/80: (5) Dyslipidemia, goal LDL below 70: Plan Cardiology consultation requested due to suspected pacemaker failure, abnormal pacemaker spikes on continuous telemetry monitoring. Personal review of the patient's continuous youth nutritional monitor reveals pacemaker spikes associated with attempted antitachycardia pacing (unsuccessful). Device reprogrammed by [employer] Rrepresentative in the evening of March 19, 2023, turning off antitachycardia pacing which was only successful about 5% of the time, keeping the mode the same as the patient continues to have paroxysmal atrial fibrillation and not chronic atrial fibrillation. Estimated remaining longevity is 15 months, probably longer after turning off antitachycardia pacing Continue metoprolol succinate 100 mg twice per day along with digoxin for rate control. Recommend resumption of anticoagulation, Apixaban (Eliquis) 5 mg twice per day, as soon as possible. Please contact with any further questions or concerns. Admission and Anticipated Discharge Date Admission Date: March 15, 2023 Supervising Physician Co-Signing Physician Notes Supervising Physician Attestation: I have personally performed a history and physical examination on the patient. I agree with the physician periodontal assistant's findings and plan as documented with the following additions. Subjective: Patient without acute complaints. Laying supine without respiratory difficulty. Exam: Chronic degree of pedal edema Data: Hemoglobin 11.7 Assessment and Plan: As noted above -Pacemaker settings changed on 03/19/2023 and antitachycardia pacing function deactivated which had not been effective for the patient. -Eliquis held however patient feels like the bowel movement was not much differe nt than what he typically experiences with his chronic hemorrhoidal bleeding. His hemoglobin remained stable, would recommend reinitiating Eliquis in the next 24 to 48 hours or at discharge. His renal function has improved to a degree that his previous dose of 5 mg twice daily is appropriate. Cardiology to sign off, call with questions or concerns. Mio Camarena, DO Subjective Patient seen and examined. Chart, medications, and telemetry reviewed. Hematochezia noted after a hard bowel movement, consistent with patient's chronic hemorrhoidal bleeding. Antiplatelet and Eliquis placed on hold by hospitalist No chest pain. No palpitations. Breathing is at baseline. Telemetry: PAF overnight, currently atrial paced in the 70s. Review of Systems Review of Systems: Complete Review of Systems is as stated above, negative, or noncontributory. Physical Exam Physical Exam: General: Alert and oriented x3. Comfortable. Cooperative. No acute distress. Skin: Multiple excoriations, multiple dressed wounds on the lower extremities, dressings not removed. Eyes: PER HENT: Normocephalic. Atraumatic. Neck: No carotid bruits. No overt JVD. Heart: Distant heart sounds. Irregularly irregular at 90 bpm. No murmur appreciated. Lungs: Diminished. Decrease. Clear. Abdomen: +BS. Soft. Nontender. No masses. No organomegaly. Valentine catheter in place. Extremities: Mild nonpitting edema. Stasis changes. See above. No cyanosis. Pulses: radial=2/4, posterior tibial=0/4. Limited neurological examination: No focal deficit. Results & Data Vital Signs (Past 12 Hours) Vital Signs Temp Pulse Pulse Resp BP Pulse Ox O2 Del Method 03/20/23 07:28 36.8 C 98 H 16 124/75 95 Nasal Cannula 03/20/23 07:28 100 H 03/20/23 03:07 37.1 C 76 18 107/68 96 Nasal Cannula 03/19/23 23:40 74 96 Nasal Cannula 03/19/23 23:22 37.0 C 94 H 18 106/61 89 L Nasal Cannula O2 Flow Rate 03/20/23 07:28 3 03/20/23 07:28 03/20/23 03:07 3 03/19/23 23:40 2 03/19/23 23:22 2 Laboratory Results Coagulation 03/20/23 Range/Units 01:52 APTT 34.8 H (21.0-31.0) Seconds CBC 03/20/23 03/20/23 Range/Units 01:52 07:32 WBC 7.35 (4.8-10.8) K/ul RBC 4.21 L (4.70-6.10) M/uL Hgb 12.2 L 11.7 L (14.0-18.0) g/dl Hct 37.8 L 35.7 L (42.0-52.0) % Plt Count 153 (130-400) K/uL Neut # (Auto) 4.87 (1.40-6.50) K/uL Lymph # (Auto) 1.22 (1.20-3.40) K/uL [place] # (Auto) 0.85 H (0.11-0.59) K/uL Eos # (Auto) 0.29 (0.00-0.50) K/uL Baso # (Auto) 0.06 (0.00-0.20) K/uL Comprehensive Metabolic Panel 03/19/23 03/20/23 Range/Units 09:51 01:52 Sodium 136 136 (136-145) mmol/L Potassium 4.1 4.0 (3.5-5.1) mmol/L Chloride 100 99 (98-107) mmol/L Carbon Dioxide 29 29 (21-32) mmol/L BUN 32 H 35 H (6-23) mg/dl Creatinine 1.53 H 1.69 H (0.6-1.4) mg/dl Glucose 183 H 117 H (70-99(Fasting)) mg/dl Calcium 9.5 9.6 (8.6-10.3) mg/dl Intake and Output 03/19/23 03/20/23 03/20/23 22:59 06:59 14:59 Intake Total 240 / 740 200 / 740 Output Total 400 / 950 550 / 950 Balance -160 / -210 -350 / -210 Intake: Oral 240 / 740 200 / 740 Output: Urine Amount (Catheter) 400 / 950 550 / 950 Valentine/Indwelling 400 / 950 550 / 950 Other: Weight 154.8 kg
--- NOTE | 2023-03-20 18:47 | Hospitalist Progress Note ---
Date of Service March 20, 2023 Assessment & Plan (1) ALMA ROSA (acute kidney injury): Plan: 72-year-old male with past med significant for type 2 diabetes, chronic kidney stage III hyperlipidemia, hypothyroidism, diabetic retinopathy, hypothyroidism, obstructive sleep apnea and COPD overlap syndrome, combined systolic and diastolic CHF, pulmonary hypertension, chronic right-sided heart failure, abdominal aortic atherosclerosis, paroxysmal atrial fibrillation, tach ybradycardia syndrome s/p pacemaker, morbid obesity, GERD, gout arthropathy, osteoarthritis, psoriasis, pulmonary embolism, MRSA colonization, tremor, PTSD, recurrent falls, history of COVID, depression, who is at [facility] comes because of frequent falls and also found to have an ALMA ROSA ALMA ROSA on CKD III Presented with creatinine of 2.2 Baseline creatinine 1.4/1.6 Received gentle IV fluids Cr 1.6 today Resumed Lasix at lower dose 40mg daily Monitor renal function Avoid nephrotoxic agents as able Follows with nephrology as outpatient Creatinine at baseline Pacemaker complication Pacemaker interrogation completed Reprogramming pacemaker Continue metoprolol, digoxin Appreciate cardiology input Hematochezia Likely due to hemorrhoids Continue stool softeners Resume Eliquis today Plan to resume aspirin tomorrow if hemoglobin remains stable Monitor CBC Lower extremity superficial wounds Wound care nurse evaluation and recommendation Dressing as per wound care Appreciate wound care nurse and podiatry input Monitor Frequent falls Says he is wheelchair-bound for last 1 and a month and getting the wheelchair is falling down Continue PT OT: Recommended SNF/PCF Obstructive sleep apnea Chronic oxygen dependency Uses supplemental oxygen at bedtime- 2L COPD Home inhalers-no evidence of exacerbation H/O Combined systolic and diastolic CHF Was on Lasix 80 mg BID and spironolactone and potassium supplements and metoprolol succinate Resume Lasix at lower dose 40 mg daily due to ALMA ROSA Monitor volume status, renal function closely History of A-fib History of tachybradycardia syndrome s/p pacemaker Continue metoprolol succinate and digoxin and Eliquis Monitor Diabetes mellitus type II HbA1c 9.2 Continue insulin per protocol Monitor BGs Hypothyroidism Continue levothyroxine Hypertension Continue metoprolol Hyperlipidemia Continue statin GERD Continue PPI Depression Continue duloxetine and bupropion Gout On allopurinol DVT Px: Eliquis Code Status Full Code Disposition Case Management o help with discharge planning Admission and Anticipated Discharge Date Admission Date: March 15, 2023 Subjective Patient is seen and examined at bedside Reported to have hematochezia overnight No bleeding issues this morning Patient states feeling well today Offers no new complaints otherwise Denies any chest pain, dyspnea, dizziness, nausea, vomiting, abdominal pain Review of Systems Review of Systems: All systems reviewed & are unremarkable except as noted in Subjective Physical Exam Physical Exam: Physical Exam: Vitals signs as noted above General Appearance:Morbidly Obese, no apparent distress Head: normocephalic, Atraumatic Eyes: normal inspection, EOMI Neck: supple, Trachea midline Respiratory/Chest: Normal breath sounds, CTA, No accessory muscle use Cardiovascular: S1, S2, No murmur Abdomen/GI:Soft, Non tender, Bowel sounds present Extremities/Musculoskeletal:normal inspection, 1+ B/L LE edema, +Chronic venous stasis changes Neurologic/Psych:AAOX3, grossly no focal neurological deficits Skin: normal color, warm Results & Data Results & Data Vital Signs (Past 12 Hours) Vital Signs Temp Pulse Pulse Resp BP Pulse Ox O2 Del Method 03/20/23 15:51 62 03/20/23 15:28 37.1 C 100 H 16 147/80 H 91 Nasal Cannula 03/20/23 08:45 Nasal Cannula 03/20/23 11:07 36.6 C 64 17 118/62 91 Nasal Cannula 03/20/23 07:28 36.8 C 98 H 16 124/75 95 Nasal Cannula 03/20/23 07:28 100 H O2 Flow Rate 03/20/23 15:51 03/20/23 15:28 3 03/20/23 08:45 2 03/20/23 11:07 3 03/20/23 07:28 3 03/20/23 07:28 Laboratory Results Short CBC 03/20/23 03/20/23 Range/Units 01:52 07:32 WBC 7.35 (4.8-10.8) K/ul Hgb 12.2 L 11.7 L (14.0-18.0) g/dl Hct 37.8 L 35.7 L (42.0-52.0) % Plt Count 153 (130-400) K/uL BMP 03/20/23 01:52 Sodium 136 Potassium 4.0 Chloride 99 Carbon Dioxide 29 BUN 35 H Creatinine 1.69 H Glucose 117 H Calcium 9.6
[2023-03-20] MEDS: APIXABAN 5 MG TABLET PO SCH (20:32)
[2023-03-21] MEDS: ACETAMINOPHEN 325 MG TAB PO PRN (03:40)
[2023-03-21] MEDS: traMADol HCL 50 MG TABLET PO PRN ×2 (04:15→20:09)
[2023-03-21] MEDS: LEVOTHYROXINE SODIUM 125 MCG TABLET PO SCH (05:40)
[2023-03-21 06:39] LABS: Hematocrit (blood only) 38.3 % (42.0-52.0); Hemoglobin 12.5 g/dl (14.0-18.0)
[2023-03-21 06:56] LABS: Anion Gap 7 (3-11); Blood Urea Nitrogen 27 mg/dl (6-23); Calcium 9.6 mg/dl (8.6-10.3); Carbon Dioxide 28 mmol/L (21-32); Chloride 102 mmol/L (98-107); Est GFR (African American) 53.5 ml/min; Est GFR (Non-African American) 46.2 ml/min; Glucose 94 mg/dl (70-99(Fasting)); Potassium 3.9 mmol/L (3.5-5.1); Sodium 137 mmol/L (136-145)
[2023-03-21] MEDS: GABAPENTIN 300 MG CAP PO SCH ×4 (07:39→20:09)
[2023-03-21] MEDS: DOCUSATE SODIUM/SENNA 50/8.6MG TAB PO SCH ×2 (07:39→20:09)
[2023-03-21] MEDS: METOPROLOL SUCC 50MG EXT REL TAB PO SCH ×2 (07:39→20:09)
[2023-03-21] MEDS: MAGNESIUM OXIDE 400 MG TAB PO SCH (07:40)
[2023-03-21] MEDS: CHOLECALCIFEROL 1,000 UNITS 25 MCG TAB PO SCH (07:40)
[2023-03-21] MEDS: DIGOXIN 0.125 MG TAB PO SCH (07:40)
[2023-03-21] MEDS: LIDOCAINE 5% 1 PATCH TD SCH (07:40)
[2023-03-21] MEDS: SPIRONOLACTONE 25 MG TAB PO SCH (07:40)
[2023-03-21] MEDS: CEROVITE ADV FORMULA TAB PO SCH (07:40)
[2023-03-21] MEDS: PANTOprazole 40 MG TAB PO SCH (07:41)
[2023-03-21] MEDS: allopurinoL 300 MG TAB PO SCH (07:41)
[2023-03-21] MEDS: DULoxetine HCL 60 MG CAP PO SCH (07:41)
[2023-03-21] MEDS: POTASSIUM CHLORIDE CRTAB 20 MEQ TABCR PO SCH (07:41)
[2023-03-21] MEDS: FUROSEMIDE 40 MG TAB PO SCH ×2 (07:41→18:16)
[2023-03-21] MEDS: CETIRIZINE HCL 10 MG TABLET PO SCH (07:41)
[2023-03-21] MEDS: ATORVASTATIN 10 MG TAB PO SCH (07:41)
[2023-03-21] MEDS: buPROPion XL 300 MG TABCR PO SCH (07:41)
[2023-03-21] MEDS: ARTIFICIAL TEARS OP SCH ×4 (07:42→20:09)
[2023-03-21] MEDS: MICONAZOLE NITRATE POWDER 85 GM EXT SCH ×2 (07:45→20:39)
[2023-03-21] MEDS: APIXABAN 5 MG TABLET PO SCH ×2 (09:08→20:09)
[2023-03-21] MEDS: LANTUS PER UNIT CHARGE SQ SCH ×2 (09:17→20:36)
[2023-03-21] MEDS: INSULIN ASPART PER UNIT CHARGE SC SCH ×4 (09:18→20:36)
[2023-03-21] MEDS: VANCOMYCIN 25MG/ML FORTIFIED OPH DROPS OPL SCH ×4 (09:20→20:09)
[2023-03-21] MEDS: ERYTHROMYCIN OP OINT 5 MG/GM 3.5 GM TUBE OPL SCH ×2 (10:27→20:10)
--- NOTE | 2023-03-21 18:02 | Hospitalist Progress Note ---
Date of Service March 21, 2023 Assessment & Plan (1) ALMA ROSA (acute kidney injury): Plan: 72-year-old male with past med significant for type 2 diabetes, chronic kidney stage III hyperlipidemia, hypothyroidism, diabetic retinopathy, hypothyroidism, obstructive sleep apnea and COPD overlap syndrome, combined systolic and diastolic CHF, pulmonary hypertension, chronic right-sided heart failure, abdominal aortic atherosclerosis, paroxysmal atrial fibrillation, tach ybradycardia syndrome s/p pacemaker, morbid obesity, GERD, gout arthropathy, osteoarthritis, psoriasis, pulmonary embolism, MRSA colonization, tremor, PTSD, recurrent falls, history of COVID, depression, who is at [facility] comes because of frequent falls and also found to have an ALMA ROSA ALMA ROSA on CKD III Presented with creatinine of 2.2 Baseline creatinine 1.4/1.6 Received gentle IV fluids Cr 1.5 today Resumed Lasix at lower dose 40mg BID Monitor renal function Avoid nephrotoxic agents as able Follows with nephrology as outpatient Creatinine at baseline Pacemaker complication Pacemaker interrogation completed Reprogramming pacemaker Continue metoprolol, digoxin Appreciate cardiology input Hematochezia Likely due to hemorrhoids Continue stool softeners Monitor CBC Hb stable Lower extremity superficial wounds Wound care nurse evaluation and recommendation Dressing as per wound care Appreciate wound care nurse and podiatry input Monitor Frequent falls Says he is wheelchair-bound for last 1 and a month and getting the wheelchair is falling down Continue PT OT: Recommended SNF/PCF Obstructive sleep apnea Chronic oxygen dependency Uses supplemental oxygen at bedtime- 2L COPD Home inhalers-no evidence of exacerbation H/O Combined systolic and diastolic CHF Was on Lasix 80 mg BID and spironolactone and potassium supplements and metoprolol succinate Monitor volume status, renal function closely Continue Aldactone Increase Lasix to 40 mg twice daily History of A-fib History of tachybradycardia syndrome s/p pacemaker Continue metoprolol succinate and digoxin and Eliquis Monitor Diabetes mellitus type II HbA1c 9.2 Continue insulin per protocol Monitor BGs Hypothyroidism Continue levothyroxine Hypertension Continue metoprolol Hyperlipidemia Continue statin GERD Continue PPI Depression Continue duloxetine and bupropion Gout On allopurinol DVT Px: Eliquis Code Status Full Code Disposition Case Management o help with discharge planning Admission and Anticipated Discharge Date Admission Date: March 15, 2023 Subjective Patient is seen and examined at bedside Subjectively feels well today No recurrence of hematochezia Offers no complaints Denies any chest pain, dyspnea, dizziness, nausea, vomiting, abdominal pain Review of Systems Review of Systems: All systems reviewed & are unremarkable except as noted in Subjective Physical Exam Physical Exam: Physical Exam: Vitals signs as noted above General Appearance:Morbidly Obese, no apparent distress Head: normocephalic, Atraumatic Eyes: normal inspection, EOMI Neck: supple, Trachea midline Respiratory/Chest: Normal breath sounds, CTA, No accessory muscle use Cardiovascular: S1, S2, No murmur Abdomen/GI:Soft, Non tender, Bowel sounds present Extremities/Musculoskeletal:normal inspection, 1-2+ B/L LE edema, +Chronic venous stasis changes Neurologic/Psych:AAOX3, grossly no focal neurological deficits Skin: normal color, warm Results & Data Results & Data Vital Signs (Past 12 Hours) Vital Signs Temp Pulse Pulse Resp BP Pulse Ox O2 Del Method 03/21/23 15:40 100 H 03/21/23 15:30 36.7 C 70 20 114/66 94 Nasal Cannula 03/21/23 12:38 36.5 C 76 18 121/68 95 Nasal Cannula 03/21/23 07:45 Nasal Cannula 03/21/23 07:30 94 H 03/21/23 07:38 37 C 93 H 20 105/72 93 Nasal Cannula 03/21/23 07:26 37.0 C 74 18 93/51 L 97 Nasal Cannula O2 Flow Rate 03/21/23 15:40 03/21/23 15:30 3 03/21/23 12:38 3 03/21/23 07:45 3 03/21/23 07:30 03/21/23 07:38 3 03/21/23 07:26 3 Laboratory Results Short CBC 03/21/23 Range/Units 06:18 Hgb 12.5 L (14.0-18.0) g/dl Hct 38.3 L (42.0-52.0) % BMP 03/21/23 06:18 Sodium 137 Potassium 3.9 Chloride 102 Carbon Dioxide 28 BUN 27 H Creatinine 1.50 H Glucose 94 Calcium 9.6
[2023-03-22] MEDS: LEVOTHYROXINE SODIUM 125 MCG TABLET PO SCH (06:30)
[2023-03-22 07:43] LABS: Hematocrit (blood only) 37.8 % (42.0-52.0); Hemoglobin 12.3 g/dl (14.0-18.0)
--- NOTE | 2023-03-22 08:01 | XRay Report ---
XR chest 1V portable HISTORY: Shortness of breath. COMPARISON: Chest 03/15/2023. FINDINGS: No pneumothorax. No pleural effusions. The cardiac silhouette remains enlarged. No new foca l lung consolidations to suggest a pneumonia. No evidence for pulmonary edema. A few stable linear sc arlike densities within the right midlung zone. Old, healed right lower rib fractures. There is a lef t-sided dual-chamber pacemaker. IMPRESSION: No significant change compared to the prior study. No acute process. ACT 112: Negative or not required by law. Electronically signed by: Stan Lopez M.D. 03/22/2023 8:00 AM
[2023-03-22 08:09] LABS: Anion Gap 8 (3-11); BUN Creatinine Ratio 21.7 (10-20); Blood Urea Nitrogen 30 mg/dl (6-23); Calcium 9.4 mg/dl (8.6-10.3); Carbon Dioxide 28 mmol/L (21-32); Chloride 101 mmol/L (98-107); Est GFR (African American) 59.2 ml/min; Est GFR (Non-African American) 51.1 ml/min; Glucose 107 mg/dl (70-99(Fasting)); Potassium 3.9 mmol/L (3.5-5.1); Sodium 137 mmol/L (136-145)
[2023-03-22] MEDS: LIDOCAINE 5% 1 PATCH TD SCH (09:19)
[2023-03-22] MEDS: SPIRONOLACTONE 25 MG TAB PO SCH (09:20)
[2023-03-22] MEDS: PANTOprazole 40 MG TAB PO SCH (09:20)
[2023-03-22] MEDS: CHOLECALCIFEROL 1,000 UNITS 25 MCG TAB PO SCH (09:20)
[2023-03-22] MEDS: buPROPion XL 300 MG TABCR PO SCH (09:20)
[2023-03-22] MEDS: DIGOXIN 0.125 MG TAB PO SCH (09:20)
[2023-03-22] MEDS: DULoxetine HCL 60 MG CAP PO SCH (09:20)
[2023-03-22] MEDS: MAGNESIUM OXIDE 400 MG TAB PO SCH (09:20)
[2023-03-22] MEDS: allopurinoL 300 MG TAB PO SCH (09:20)
[2023-03-22] MEDS: ATORVASTATIN 10 MG TAB PO SCH (09:20)
[2023-03-22] MEDS: POTASSIUM CHLORIDE CRTAB 20 MEQ TABCR PO SCH (09:20)
[2023-03-22] MEDS: FUROSEMIDE 40 MG TAB PO SCH ×2 (09:20→18:15)
[2023-03-22] MEDS: ASPIRIN 81 MG ECTAB PO SCH (09:20)
[2023-03-22] MEDS: CEROVITE ADV FORMULA TAB PO SCH (09:20)
[2023-03-22] MEDS: CETIRIZINE HCL 10 MG TABLET PO SCH (09:21)
[2023-03-22] MEDS: METOPROLOL SUCC 50MG EXT REL TAB PO SCH ×2 (09:22→20:10)
[2023-03-22] MEDS: GABAPENTIN 300 MG CAP PO SCH ×4 (09:22→20:10)
[2023-03-22] MEDS: ERYTHROMYCIN OP OINT 5 MG/GM 3.5 GM TUBE OPL SCH ×2 (09:22→20:09)
[2023-03-22] MEDS: DOCUSATE SODIUM/SENNA 50/8.6MG TAB PO SCH ×2 (09:22→20:11)
[2023-03-22] MEDS: ARTIFICIAL TEARS OP SCH ×4 (09:22→20:09)
[2023-03-22] MEDS: APIXABAN 5 MG TABLET PO SCH ×2 (09:22→20:10)
[2023-03-22] MEDS: MICONAZOLE NITRATE POWDER 85 GM EXT SCH ×2 (09:24→20:08)
[2023-03-22] MEDS: VANCOMYCIN 25MG/ML FORTIFIED OPH DROPS OPL SCH ×4 (09:30→20:08)
[2023-03-22] MEDS: INSULIN ASPART PER UNIT CHARGE SC SCH ×4 (09:31→21:31)
[2023-03-22] MEDS: LANTUS PER UNIT CHARGE SQ SCH ×2 (09:31→21:32)
--- NOTE | 2023-03-22 16:10 | Hospitalist Progress Note ---
Date of Service March 22, 2023 Assessment & Plan (1) ALMA ROSA (acute kidney injury): Plan: 72-year-old male with past med significant for type 2 diabetes, chronic kidney stage III hyperlipidemia, hypothyroidism, diabetic retinopathy, hypothyroidism, obstructive sleep apnea and COPD overlap syndrome, combined systolic and diastolic CHF, pulmonary hypertension, chronic right-sided heart failure, abdominal aortic atherosclerosis, paroxysmal atrial fibrillation, tac hybradycardia syndrome s/p pacemaker, morbid obesity, GERD, gout arthropathy, osteoarthritis, psoriasis, pulmonary embolism, MRSA colonization, tremor, PTSD, recurrent falls, history of COVID, depression, who is at [facility] comes because of frequent falls and also found to have an ALMA ROSA ALMA ROSA on CKD III Presented with creatinine of 2.2 Baseline creatinine 1.4/1.6 Received gentle IV fluids Cr 1.3 today Resumed Lasix at lower dose 40mg BID Monitor renal function Avoid nephrotoxic agents as able Follows with nephrology as outpatient Cr stable while on diuretics Pacemaker complication Pacemaker interrogation completed Reprogramming pacemaker Continue metoprolol, digoxin Appreciate cardiology input Hematochezia Likely due to hemorrhoids Continue stool softeners Monitor CBC Hb 12.3 today Lower extremity superficial wounds Wound care nurse evaluation and recommendation Dressing as per wound care Appreciate wound care nurse and podiatry input Monitor Frequent falls Says he is wheelchair-bound for last 1 and a month and getting the wheelchair is falling down Continue PT OT: Recommended SNF/PCF Obstructive sleep apnea Chronic oxygen dependency Uses supplemental oxygen at bedtime- 2L COPD Home inhalers-no evidence of exacerbation H/O Combined systolic and diastolic CHF Was on Lasix 80 mg BID and spironolactone and potassium supplements and me toprolol succinate Monitor volume status, renal function closely Continue Aldactone Increase Lasix to 40 mg twice daily History of A-fib History of tachybradycardia syndrome s/p pacemaker Continue metoprolol succinate and digoxin and Eliquis Monitor Diabetes mellitus type II HbA1c 9.2 Continue insulin per protocol Monitor BGs Hypothyroidism Continue levothyroxine Hypertension Continue metoprolol Hyperlipidemia Continue statin GERD Continue PPI Depression Continue duloxetine and bupropion Gout On allopurinol DVT Px: Eliquis Code Status Full Code Disposition Case Management o help with discharge planning Admission and Anticipated Discharge Date Admission Date: March 15, 2023 Subjective Patient is seen and examined at bedside Offers no new complaints Sitting in chair during my encounter Denies any chest pain, dyspnea, dizziness, nausea, vomiting, abdominal pain Waiting for rehab placement Review of Systems Review of Systems: All systems reviewed & are unremarkable except as noted in Subjective Physical Exam Physical Exam: Physical Exam: Vitals signs as noted above General Appearance:Morbidly Obese, no apparent distress Head: normocephalic, Atraumatic Eyes: normal inspection, EOMI Neck: supple, Trachea midline Respiratory/Chest: Normal breath sounds, CTA, No accessory muscle use Cardiovascular: S1, S2, No murmur Abdomen/GI:Soft, Non tender, Bowel sounds present Extremities/Musculoskeletal:normal inspection, 1-2+ B/L LE edema, +Chronic venous stasis changes Neurologic/Psych:AAOX3, grossly no focal neurological deficits Skin: normal color, warm Results & Data Results & Data Vital Signs (Past 12 Hours) Vital Signs Temp Pulse Pulse Resp BP Pulse Ox O2 Del Method 03/22/23 16:03 73 03/22/23 09:15 Nasal Cannula 03/22/23 12:35 36.6 C 61 20 127/72 97 Nasal Cannula 03/22/23 08:15 37.0 C 95 H 93 H 126/58 L 93 Nasal Cannula 03/22/23 07:27 90 O2 Flow Rate 03/22/23 16:03 03/22/23 09:15 3 03/22/23 12:35 3 03/22/23 08:15 3 03/22/23 07:27 Laboratory Results Short CBC 03/22/23 Range/Units 06:32 Hgb 12.3 L (14.0-18.0) g/dl Hct 37.8 L (42.0-52.0) % BMP 03/22/23 06:32 Sodium 137 Potassium 3.9 Chloride 101 Carbon Dioxide 28 BUN 30 H Creatinine 1.38 Glucose 107 H Calcium 9.4
[2023-03-23] MEDS: LEVOTHYROXINE SODIUM 125 MCG TABLET PO SCH (06:40)
[2023-03-23 09:05] LABS: Hematocrit (blood only) 38.2 % (42.0-52.0); Hemoglobin 12.4 g/dl (14.0-18.0); Mean Corpuscular Hemoglobin 28.2 pg (25.0-34.0); Mean Corpuscular Hgb Conc 32.5 g/dL (32.0-36.0); Mean Corpuscular Volume 86.8 fL (80.0-100.0); Mean Platelet Volume 10.5 fL (9.4-12.4); Platelet Count 187 K/uL (130-400); RDW Coefficient of Variation 17.5 % (11.5-14.5); RDW Standard Deviation 55.8 fL (36.4-46.3); White Blood Count 6.56 K/ul (4.8-10.8)
[2023-03-23] MEDS: APIXABAN 5 MG TABLET PO SCH ×2 (09:07→20:30)
[2023-03-23] MEDS: DIGOXIN 0.125 MG TAB PO SCH (09:07)
[2023-03-23] MEDS: CETIRIZINE HCL 10 MG TABLET PO SCH (09:07)
[2023-03-23] MEDS: DOCUSATE SODIUM/SENNA 50/8.6MG TAB PO SCH ×2 (09:07→20:31)
[2023-03-23] MEDS: MAGNESIUM OXIDE 400 MG TAB PO SCH (09:07)
[2023-03-23] MEDS: allopurinoL 300 MG TAB PO SCH (09:07)
[2023-03-23] MEDS: LIDOCAINE 5% 1 PATCH TD SCH (09:07)
[2023-03-23] MEDS: DULoxetine HCL 60 MG CAP PO SCH (09:07)
[2023-03-23] MEDS: METOPROLOL SUCC 50MG EXT REL TAB PO SCH ×2 (09:07→20:32)
[2023-03-23] MEDS: GABAPENTIN 300 MG CAP PO SCH ×4 (09:07→20:31)
[2023-03-23] MEDS: PANTOprazole 40 MG TAB PO SCH (09:08)
[2023-03-23] MEDS: SPIRONOLACTONE 25 MG TAB PO SCH (09:08)
[2023-03-23] MEDS: FUROSEMIDE 40 MG TAB PO SCH ×2 (09:08→17:44)
[2023-03-23] MEDS: buPROPion XL 300 MG TABCR PO SCH (09:08)
[2023-03-23] MEDS: ERYTHROMYCIN OP OINT 5 MG/GM 3.5 GM TUBE OPL SCH ×2 (09:09→20:31)
[2023-03-23] MEDS: ASPIRIN 81 MG ECTAB PO SCH (09:09)
[2023-03-23] MEDS: ARTIFICIAL TEARS OP SCH ×4 (09:09→20:31)
[2023-03-23] MEDS: CEROVITE ADV FORMULA TAB PO SCH (09:09)
[2023-03-23] MEDS: ATORVASTATIN 10 MG TAB PO SCH (09:09)
[2023-03-23] MEDS: POTASSIUM CHLORIDE CRTAB 20 MEQ TABCR PO SCH ×2 (09:09)
[2023-03-23] MEDS: CHOLECALCIFEROL 1,000 UNITS 25 MCG TAB PO SCH (09:09)
[2023-03-23] MEDS: MICONAZOLE NITRATE POWDER 85 GM EXT SCH ×2 (09:10→20:32)
[2023-03-23 09:13] LABS: Anion Gap 9 (3-11); BUN Creatinine Ratio 22.9 (10-20); Blood Urea Nitrogen 35 mg/dl (6-23); Calcium 9.4 mg/dl (8.6-10.3); Carbon Dioxide 28 mmol/L (21-32); Chloride 101 mmol/L (98-107); Est GFR (African American) 52.3 ml/min; Est GFR (Non-African American) 45.1 ml/min; Glucose 75 mg/dl (70-99(Fasting)); Potassium 3.8 mmol/L (3.5-5.1); Sodium 138 mmol/L (136-145)
[2023-03-23] MEDS: INSULIN ASPART PER UNIT CHARGE SC SCH ×4 (09:13→20:22)
[2023-03-23] MEDS: LANTUS PER UNIT CHARGE SQ SCH ×2 (09:13→20:32)
[2023-03-23] MEDS: VANCOMYCIN 25MG/ML FORTIFIED OPH DROPS OPL SCH ×4 (09:13→20:33)
--- NOTE | 2023-03-23 16:31 | Hospitalist Progress Note ---
Date of Service March 23, 2023 Assessment & Plan (1) ALMA ROSA (acute kidney injury): Plan: 72-year-old male with past med significant for type 2 diabetes, chronic kidney stage III hyperlipidemia, hypothyroidism, diabetic retinopathy, hypothyroidism, obstructive sleep apnea and COPD overlap syndrome, combined systolic and diastolic CHF, pulmonary hypertension, chronic right-sided heart failure, abdominal aortic atherosclerosis, paroxysmal atrial fibrillation, tac hybradycardia syndrome s/p pacemaker, morbid obesity, GERD, gout arthropathy, osteoarthritis, psoriasis, pulmonary embolism, MRSA colonization, tremor, PTSD, recurrent falls, history of COVID, depression, who is at [facility] comes because of frequent falls and also found to have an AMLA ROSA ALMA ROSA on CKD III Presented with creatinine of 2.2 Baseline creatinine 1.4/1.6 Received gentle IV fluids Cr 1.5 today Resumed Lasix at lower dose 40mg BID Monitor renal function Avoid nephrotoxic agents as able Follows with nephrology as outpatient Will increase Lasix to home dose if renal function continues to be stable Pacemaker complication Pacemaker interrogation completed Reprogramming pacemaker Continue metoprolol, digoxin Appreciate cardiology input Hematochezia Likely due to hemorrhoids Continue stool softeners Monitor CBC Hb 12.4 today Lower extremity superficial wounds Wound care nurse evaluation and recommendation Dressing as per wound care Appreciate wound care nurse and podiatry input Monitor Frequent falls Says he is wheelchair-bound for last 1 and a month and getting the wheelchair is falling down Continue PT OT: Recommended SNF/PCF Obstructive sleep apnea Chronic oxygen dependency Uses supplemental oxygen at bedtime- 2L COPD Home inhalers-no evidence of exacerbation H/O Combined systolic and diastolic CHF Was on Lasix 80 mg BID and spironolactone and potassium supplements and metoprolol succinate Monitor volume status, renal function closely Continue Aldactone Increase Lasix to 40 mg twice daily History of A-fib History of tachybradycardia syndrome s/p pacemaker Continue metoprolol succinate and digoxin and Eliquis Monitor Diabetes mellitus type II HbA1c 9.2 Continue insulin per protocol Monitor BGs Hypothyroidism Continue levothyroxine Hypertension Continue metoprolol Hyperlipidemia Continue statin GERD Continue PPI Depression Continue duloxetine and bupropion Gout On allopurinol DVT Px: Eliquis Code Status Full Code Disposition Waiting for placement Admission and Anticipated Discharge Date Admission Date: March 15, 2023 Subjective Patient is seen and examined at bedside Denies any chest pain, dyspnea, dizziness, nausea, vomiting, abdominal pain Waiting for rehab placement CBC, renal function stable Review of Systems Review of Systems: All systems reviewed & are unremarkable except as noted in Subjective Physical Exam Physical Exam: Physical Exam: Vitals signs as noted above General Appearance:Morbidly Obese, no apparent distress Head: normocephalic, Atraumatic Eyes: normal inspection, EOMI Neck: supple, Trachea midline Respiratory/Chest: Normal breath sounds, CTA, No accessory muscle use Cardiovascular: S1, S2, No murmur Abdomen/GI:Soft, Non tender, Bowel sounds present Extremities/Musculoskeletal:normal inspection, 1-2+ B/L LE edema, +Chronic venous stasis changes Neurologic/Psych:AAOX3, grossly no focal neurological deficits Skin: normal color, warm Results & Data Results & Data Vital Signs (Past 12 Hours) Vital Signs Temp Pulse Pulse Resp BP Pulse Ox O2 Del Method 03/23/23 16:26 88 03/23/23 15:43 36.6 C 67 19 111/74 95 Nasal Cannula 03/23/23 09:10 Nasal Cannula 03/23/23 12:19 36.9 C 71 18 105/71 98 Nasal Cannula 03/23/23 09:07 74 03/23/23 08:34 36.5 C 94 H 19 113/65 95 Nasal Cannula 03/23/23 07:45 79 O2 Flow Rate 03/23/23 16:26 03/23/23 15:43 3 03/23/23 09:10 3 03/23/23 12:19 3 03/23/23 09:07 03/23/23 08:34 03/23/23 07:45 Laboratory Results Short CBC 03/23/23 Range/Units 08:11 WBC 6.56 (4.8-10.8) K/ul Hgb 12.4 L (14.0-18.0) g/dl Hct 38.2 L (42.0-52.0) % Plt Count 187 (130-400) K/uL BMP 03/23/23 08:11 Sodium 138 Potassium 3.8 Chloride 101 Carbon Dioxide 28 BUN 35 H Creatinine 1.53 H Glucose 75 Calcium 9.4
[2023-03-24] MEDS: traMADol HCL 50 MG TABLET PO PRN (02:13)
[2023-03-24] MEDS: LEVOTHYROXINE SODIUM 125 MCG TABLET PO SCH (05:57)
[2023-03-24] MEDS: VANCOMYCIN 25MG/ML FORTIFIED OPH DROPS OPL SCH ×4 (07:56→21:28)
[2023-03-24] MEDS: ASPIRIN 81 MG ECTAB PO SCH (08:04)
[2023-03-24] MEDS: APIXABAN 5 MG TABLET PO SCH ×2 (08:04→21:33)
[2023-03-24] MEDS: CHOLECALCIFEROL 1,000 UNITS 25 MCG TAB PO SCH (08:04)
[2023-03-24] MEDS: ARTIFICIAL TEARS OP SCH ×4 (08:04→21:26)
[2023-03-24] MEDS: ATORVASTATIN 10 MG TAB PO SCH (08:04)
[2023-03-24] MEDS: CETIRIZINE HCL 10 MG TABLET PO SCH (08:04)
[2023-03-24] MEDS: allopurinoL 300 MG TAB PO SCH (08:04)
[2023-03-24] MEDS: ERYTHROMYCIN OP OINT 5 MG/GM 3.5 GM TUBE OPL SCH ×2 (08:07→21:26)
[2023-03-24] MEDS: DOCUSATE SODIUM/SENNA 50/8.6MG TAB PO SCH ×2 (08:07→21:34)
[2023-03-24] MEDS: DULoxetine HCL 60 MG CAP PO SCH (08:07)
[2023-03-24] MEDS: FUROSEMIDE 40 MG TAB PO SCH ×2 (08:07→17:11)
[2023-03-24] MEDS: GABAPENTIN 300 MG CAP PO SCH ×4 (08:07→21:33)
[2023-03-24] MEDS: METOPROLOL SUCC 50MG EXT REL TAB PO SCH ×2 (08:08→21:27)
[2023-03-24] MEDS: MAGNESIUM OXIDE 400 MG TAB PO SCH (08:08)
[2023-03-24] MEDS: PANTOprazole 40 MG TAB PO SCH (08:08)
[2023-03-24] MEDS: LIDOCAINE 5% 1 PATCH TD SCH (08:08)
[2023-03-24] MEDS: CEROVITE ADV FORMULA TAB PO SCH (08:08)
[2023-03-24] MEDS: MICONAZOLE NITRATE POWDER 85 GM EXT SCH ×2 (08:08→21:26)
[2023-03-24] MEDS: SPIRONOLACTONE 25 MG TAB PO SCH (08:09)
[2023-03-24] MEDS: POTASSIUM CHLORIDE CRTAB 20 MEQ TABCR PO SCH (08:09)
[2023-03-24] MEDS: DIGOXIN 0.125 MG TAB PO SCH (08:13)
[2023-03-24 08:50] LABS: Anion Gap 9 (3-11); Calcium 9.3 mg/dl (8.6-10.3); Carbon Dioxide 26 mmol/L (21-32); Chloride 102 mmol/L (98-107); Potassium 3.7 mmol/L (3.5-5.1); Sodium 137 mmol/L (136-145)
[2023-03-24 08:56] LABS: BUN Creatinine Ratio 26.2 (10-20); Blood Urea Nitrogen 38 mg/dl (6-23); Est GFR (African American) 55.8 ml/min; Est GFR (Non-African American) 48.1 ml/min; Glucose 90 mg/dl (70-99(Fasting))
[2023-03-24] MEDS: buPROPion XL 300 MG TABCR PO SCH (08:59)
[2023-03-24] MEDS: INSULIN ASPART PER UNIT CHARGE SC SCH ×4 (09:11→21:27)
[2023-03-24] MEDS: LANTUS PER UNIT CHARGE SQ SCH ×2 (09:11→21:27)
--- NOTE | 2023-03-24 17:28 | Hospitalist Progress Note ---
Date of Service March 24, 2023 Assessment & Plan (1) ALMA ROSA (acute kidney injury): Plan: 72-year-old male with past med significant for type 2 diabetes, chronic kidney stage III hyperlipidemia, hypothyroidism, diabetic retinopathy, hypothyroidism, obstructive sleep apnea and COPD overlap syndrome, combined systolic and diastolic CHF, pulmonary hypertension, chronic right-sided heart failure, abdominal aortic atherosclerosis, paroxysmal atrial fibrillation, tac hybradycardia syndrome s/p pacemaker, morbid obesity, GERD, gout arthropathy, osteoarthritis, psoriasis, pulmonary embolism, MRSA colonization, tremor, PTSD, recurrent falls, history of COVID, depression, who is at [facility] comes because of frequent falls and also found to have an ALMA ROSA ALMA ROSA on CKD III Presented with creatinine of 2.2 Baseline creatinine 1.4/1.6 Received gentle IV fluids Cr 1.45 today Resumed Lasix at lower dose 40mg BID Monitor renal function Avoid nephrotoxic agents as able Follows with nephrology as outpatient Will increase Lasix to home dose if renal function continues to be stable Continue current management Waiting for rehab placement Pacemaker complication Pacemaker interrogation completed Reprogramming pacemaker Continue metoprolol, digoxin Appreciate cardiology input Hematochezia Likely due to hemorrhoids Continue stool softeners Monitor CBC Hb 12.4 Lower extremity superficial wounds Wound care nurse evaluation and recommendation Dressing as per wound care Appreciate wound care nurse and podiatry input Monitor Frequent falls Says he is wheelchair-bound for last 1 and a month and getting the wheelchair is falling down Continue PT OT: Recommended SNF/PCF Obstructive sleep apnea Chronic oxygen dependency Uses supplemental oxygen at bedtime- 2L COPD Home inhalers-no evidence of exacerbation H/O Combined systolic and diastolic CHF Was on Lasix 80 mg BID and spironolactone and potassium supplements and metoprolol succinate Monitor volume status, renal function closely Continue Aldactone Increase Lasix to 40 mg twice daily History of A-fib History of tachybradycardia syndrome s/p pacemaker Continue metoprolol succinate and digoxin and Eliquis Monitor Diabetes mellitus type II HbA1c 9.2 Continue insulin per protocol Monitor BGs Hypothyroidism Continue levothyroxine Hypertension Continue metoprolol Hyperlipidemia Continue statin GERD Continue PPI Depression Continue duloxetine and bupropion Gout On allopurinol DVT Px: Eliquis Code Status Full Code Disposition Waiting for placement Admission and Anticipated Discharge Date Admission Date: March 15, 2023 Subjective Patient is seen and examined at bedside Sitting in chair comfortably during my encounter Offers no new complaints Denies any chest pain, dyspnea, dizziness, nausea, vomiting, abdominal pain Waiting for rehab placement Review of Systems Review of Systems: All systems reviewed & are unremarkable except as noted in Subjective Physical Exam Physical Exam: Physical Exam: Vitals signs as noted above General Appearance:Morbidly Obese, no apparent distress Head: normocephalic, Atraumatic Eyes: normal inspection, EOMI Neck: supple, Trachea midline Respiratory/Chest: Normal breath sounds, CTA, No accessory muscle use Cardiovascular: S1, S2, No murmur Abdomen/GI:Soft, Non tender, Bowel sounds present Extremities/Musculoskeletal:normal inspection, 1-2+ B/L LE edema, +Chronic venous stasis changes Neurologic/Psych:AAOX3, grossly no focal neurological deficits Skin: normal color, warm Results & Data Results & Data Vital Signs (Past 12 Hours) Vital Signs Temp Pulse Pulse Pulse Resp BP Pulse Ox 03/24/23 17:22 36.7 C 71 17 138/67 95 03/24/23 17:19 68 03/24/23 15:30 92 03/24/23 12:37 03/24/23 11:24 36.7 C 61 20 114/67 91 03/24/23 08:13 70 03/24/23 07:53 36.6 C 62 16 118/68 92 03/24/23 07:18 78 O2 Del Method O2 Flow Rate 03/24/23 17:22 Room Air 03/24/23 17:19 03/24/23 15:30 03/24/23 12:37 Nasal Cannula 3 03/24/23 11:24 Room Air 03/24/23 08:13 03/24/23 07:53 Nasal Cannula 3 03/24/23 07:18 Laboratory Results [facility] 03/24/23 06:45 Sodium 137 Potassium 3.7 Chloride 102 Carbon Dioxide 26 BUN 38 H Creatinine 1.45 H Glucose 90 Calcium 9.3
[2023-03-25] MEDS: LEVOTHYROXINE SODIUM 125 MCG TABLET PO SCH (06:05)
[2023-03-25 08:17] LABS: Anion Gap 7 (3-11); BUN Creatinine Ratio 26.5 (10-20); Blood Urea Nitrogen 36 mg/dl (6-23); Calcium 9.4 mg/dl (8.6-10.3); Carbon Dioxide 28 mmol/L (21-32); Chloride 101 mmol/L (98-107); Est GFR (African American) 60.2 ml/min; Glucose 104 mg/dl (70-99(Fasting)); Potassium 4.1 mmol/L (3.5-5.1); Sodium 136 mmol/L (136-145)
[2023-03-25 08:28] LABS: Hematocrit (blood only) 36.2 % (42.0-52.0); Hemoglobin 11.9 g/dl (14.0-18.0); Mean Corpuscular Hemoglobin 29.1 pg (25.0-34.0); Mean Corpuscular Hgb Conc 32.9 g/dL (32.0-36.0); Mean Corpuscular Volume 88.5 fL (80.0-100.0); Mean Platelet Volume 10.6 fL (9.4-12.4); Platelet Count 191 K/uL (130-400); RDW Coefficient of Variation 17.7 % (11.5-14.5); RDW Standard Deviation 56.8 fL (36.4-46.3); Red Blood Count 4.09 M/uL (4.70-6.10); White Blood Count 7.36 K/ul (4.8-10.8)
[2023-03-25] MEDS: ASPIRIN 81 MG ECTAB PO SCH (10:14)
[2023-03-25] MEDS: allopurinoL 300 MG TAB PO SCH (10:14)
[2023-03-25] MEDS: APIXABAN 5 MG TABLET PO SCH ×2 (10:14→20:51)
[2023-03-25] MEDS: GABAPENTIN 300 MG CAP PO SCH ×4 (10:14→20:51)
[2023-03-25] MEDS: METOPROLOL SUCC 50MG EXT REL TAB PO SCH ×2 (10:14→20:51)
[2023-03-25] MEDS: MICONAZOLE NITRATE POWDER 85 GM EXT SCH ×2 (10:15→20:52)
[2023-03-25] MEDS: ARTIFICIAL TEARS OP SCH ×4 (10:16→20:49)
[2023-03-25] MEDS: DIGOXIN 0.125 MG TAB PO SCH (10:16)
[2023-03-25] MEDS: POTASSIUM CHLORIDE CRTAB 20 MEQ TABCR PO SCH ×2 (10:24→10:28)
[2023-03-25] MEDS: DULoxetine HCL 60 MG CAP PO SCH (10:25)
[2023-03-25] MEDS: CETIRIZINE HCL 10 MG TABLET PO SCH (10:25)
[2023-03-25] MEDS: SPIRONOLACTONE 25 MG TAB PO SCH (10:25)
[2023-03-25] MEDS: MAGNESIUM OXIDE 400 MG TAB PO SCH (10:25)
[2023-03-25] MEDS: CEROVITE ADV FORMULA TAB PO SCH (10:25)
[2023-03-25] MEDS: ATORVASTATIN 10 MG TAB PO SCH (10:26)
[2023-03-25] MEDS: FUROSEMIDE 40 MG TAB PO SCH (10:26)
[2023-03-25] MEDS: PANTOprazole 40 MG TAB PO SCH (10:26)
[2023-03-25] MEDS: LANTUS PER UNIT CHARGE SQ SCH ×2 (10:27→21:35)
[2023-03-25] MEDS: LIDOCAINE 5% 1 PATCH TD SCH (10:27)
[2023-03-25] MEDS: CHOLECALCIFEROL 1,000 UNITS 25 MCG TAB PO SCH (10:27)
[2023-03-25] MEDS: buPROPion XL 300 MG TABCR PO SCH (10:27)
[2023-03-25] MEDS: DOCUSATE SODIUM/SENNA 50/8.6MG TAB PO SCH ×2 (10:28→20:50)
[2023-03-25] MEDS: INSULIN ASPART PER UNIT CHARGE SC SCH ×4 (10:28→20:02)
[2023-03-25] MEDS: VANCOMYCIN 25MG/ML FORTIFIED OPH DROPS OPL SCH ×4 (10:29→21:35)
[2023-03-25] MEDS: traMADol HCL 50 MG TABLET PO PRN (10:33)
--- NOTE | 2023-03-25 16:28 | Hospitalist Progress Note ---
Date of Service March 25, 2023 Assessment & Plan (1) ALMA ROSA (acute kidney injury): Plan: 72-year-old male with past med significant for type 2 diabetes, chronic kidney stage III hyperlipidemia, hypothyroidism, diabetic retinopathy, hypothyroidism, obstructive sleep apnea and COPD overlap syndrome, combined systolic and diastolic CHF, pulmonary hypertension, chronic right-sided heart failure, abdominal aortic atherosclerosis, paroxysmal atrial fibrillation, tac hybradycardia syndrome s/p pacemaker, morbid obesity, GERD, gout arthropathy, osteoarthritis, psoriasis, pulmonary embolism, MRSA colonization, tremor, PTSD, recurrent falls, history of COVID, depression, who is at [facility] comes because of frequent falls and also found to have an ALMA ROSA ALMA ROSA on CKD III Presented with creatinine of 2.2 Baseline creatinine 1.4/1.6 Received gentle IV fluids Cr 1.36 today Resumed Lasix Monitor renal function Avoid nephrotoxic agents as able Follows with nephrology as outpatient Will increase Lasix to home dose if renal function continues to be stable Increased lasix to 60mg BID today Waiting for rehab placement Pacemaker complication Pacemaker interrogation completed Reprogramming pacemaker Continue metoprolol, digoxin Appreciate cardiology input Hematochezia Likely due to hemorrhoids Continue stool softeners Monitor CBC Hb stable Lower extremity superficial wounds Wound care nurse evaluation and recommendation Dressing as per wound care Appreciate wound care nurse and podiatry input Monitor Frequent falls Says he is wheelchair-bound for last 1 and a month and getting the wheelchair is falling down Continue PT OT: Recommended SNF/PCF Obstructive sleep apnea Chronic oxygen dependency Uses supplemental oxygen at bedtime- 2L COPD Home inhalers-no evidence of exacerbation H/O Combined systolic and diastolic CHF Was on Lasix 80 mg BID and spironolactone and potassium supplements and metoprolol succinate Monitor volume status, renal function closely Continue Aldactone Increase Lasix to 60 mg twice daily History of A-fib History of tachybradycardia syndrome s/p pacemaker Continue metoprolol succinate and digoxin and Eliquis Monitor Diabetes mellitus type II HbA1c 9.2 Continue insulin per protocol Monitor BGs Hypothyroidism Continue levothyroxine Hypertension Continue metoprolol Hyperlipidemia Continue statin GERD Continue PPI Depression Continue duloxetine and bupropion Gout On allopurinol DVT Px: Eliquis Code Status Full Code Disposition Waiting for placement Admission and Anticipated Discharge Date Admission Date: March 15, 2023 Subjective Patient is seen and examined at bedside States feeling better No new complaints Denies any chest pain, dyspnea, dizziness, nausea, vomiting, abdominal pain Waiting for rehab placement Renal function stable Review of Systems Review of Systems: All systems reviewed & are unremarkable except as noted in Subjective Physical Exam Physical Exam: Physical Exam: Vitals signs as noted above General Appearance:Morbidly Obese, no apparent distress Head: normocephalic, Atraumatic Eyes: normal inspection, EOMI Neck: supple, Trachea midline Respiratory/Chest: Normal breath sounds, CTA, No accessory muscle use Cardiovascular: S1, S2, No murmur Abdomen/GI:Soft, Non tender, Bowel sounds present Extremities/Musculoskeletal:normal inspection, 1-2+ B/L LE edema, +Chronic venous stasis changes Neurologic/Psych:AAOX3, grossly no focal neurological deficits Skin: normal color, warm Results & Data Results & Data Vital Signs (Past 12 Hours) Vital Signs Temp Pulse Pulse Resp BP BP Pulse Ox 03/25/23 15:38 36.4 C L 62 18 135/64 93 03/25/23 11:44 36.8 C 61 17 131/66 95 03/25/23 10:16 65 03/25/23 07:48 36.5 C 66 16 117/59 L 99 O2 Del Method O2 Flow Rate 03/25/23 15:38 Room Air 03/25/23 11:44 Room Air 03/25/23 10:16 03/25/23 07:48 Nasal Cannula 3 Laboratory Results Short CBC 03/25/23 Range/Units 07:23 WBC 7.36 (4.8-10.8) K/ul Hgb 11.9 L (14.0-18.0) g/dl Hct 36.2 L (42.0-52.0) % Plt Count 191 (130-400) K/uL BMP 03/25/23 07:23 Sodium 136 Potassium 4.1 Chloride 101 Carbon Dioxide 28 BUN 36 H Creatinine 1.36 Glucose 104 H Calcium 9.4
[2023-03-25] MEDS: FUROSEMIDE 20 MG TAB PO SCH (18:09)
[2023-03-25] MEDS: ERYTHROMYCIN OP OINT 5 MG/GM 3.5 GM TUBE OPL SCH (21:34)
[2023-03-26] MEDS: LEVOTHYROXINE SODIUM 125 MCG TABLET PO SCH (06:20)
[2023-03-26 08:21] LABS: Hematocrit (blood only) 40.6 % (42.0-52.0); Hemoglobin 12.8 g/dl (14.0-18.0)
[2023-03-26 08:43] LABS: Anion Gap 6 (3-11); BUN Creatinine Ratio 29.8 (10-20); Blood Urea Nitrogen 39 mg/dl (6-23); Calcium 9.9 mg/dl (8.6-10.3); Carbon Dioxide 28 mmol/L (21-32); Chloride 103 mmol/L (98-107); Est GFR (Non-African American) 54.4 ml/min; Glucose 179 mg/dl (70-99(Fasting)); Potassium 4.4 mmol/L (3.5-5.1); Sodium 137 mmol/L (136-145)
[2023-03-26] MEDS: LANTUS PER UNIT CHARGE SQ SCH (09:20)
[2023-03-26] MEDS: INSULIN ASPART PER UNIT CHARGE SC SCH ×2 (09:20→13:19)
[2023-03-26] MEDS: VANCOMYCIN 25MG/ML FORTIFIED OPH DROPS OPL SCH ×2 (09:21→14:26)
[2023-03-26] MEDS: DOCUSATE SODIUM/SENNA 50/8.6MG TAB PO SCH (09:21)
[2023-03-26] MEDS: MICONAZOLE NITRATE POWDER 85 GM EXT SCH (09:21)
[2023-03-26] MEDS: ERYTHROMYCIN OP OINT 5 MG/GM 3.5 GM TUBE OPL SCH (09:22)
[2023-03-26] MEDS: DIGOXIN 0.125 MG TAB PO SCH (09:22)
[2023-03-26] MEDS: allopurinoL 300 MG TAB PO SCH (09:22)
[2023-03-26] MEDS: CHOLECALCIFEROL 1,000 UNITS 25 MCG TAB PO SCH (09:22)
[2023-03-26] MEDS: PANTOprazole 40 MG TAB PO SCH (09:24)
[2023-03-26] MEDS: ATORVASTATIN 10 MG TAB PO SCH (09:24)
[2023-03-26] MEDS: CEROVITE ADV FORMULA TAB PO SCH (09:24)
[2023-03-26] MEDS: METOPROLOL SUCC 50MG EXT REL TAB PO SCH (09:25)
[2023-03-26] MEDS: DULoxetine HCL 60 MG CAP PO SCH (09:25)
[2023-03-26] MEDS: CETIRIZINE HCL 10 MG TABLET PO SCH (09:25)
[2023-03-26] MEDS: MAGNESIUM OXIDE 400 MG TAB PO SCH (09:25)
[2023-03-26] MEDS: APIXABAN 5 MG TABLET PO SCH (09:25)
[2023-03-26] MEDS: SPIRONOLACTONE 25 MG TAB PO SCH (09:25)
[2023-03-26] MEDS: buPROPion XL 300 MG TABCR PO SCH (09:25)
[2023-03-26] MEDS: ASPIRIN 81 MG ECTAB PO SCH (09:25)
[2023-03-26] MEDS: GABAPENTIN 300 MG CAP PO SCH ×2 (09:25→13:24)
[2023-03-26] MEDS: ARTIFICIAL TEARS OP SCH ×2 (09:26→13:25)
[2023-03-26] MEDS: LIDOCAINE 5% 1 PATCH TD SCH (09:27)
[2023-03-26] MEDS: FUROSEMIDE 20 MG TAB PO SCH (09:27)
[2023-03-26] MEDS: POTASSIUM CHLORIDE CRTAB 20 MEQ TABCR PO SCH (09:39)
--- NOTE | 2023-03-26 16:30 | Discharge Summary ---
Date of Service March 26, 2023 Admission HPI Per Admitting Provider 72-year-old male with past med significant for type 2 diabetes, chronic kidney stage III hyperlipidemia, hypothyroidism, diabetic retinopathy, hypothyroidism, obstructive sleep apnea and COPD overlap syndrome, combined systolic and diastolic CHF, pulmonary hypertension, chronic right-sided heart failure, abdominal aortic atherosclerosis, paroxysmal atrial fibrillation, tachybradycardia syndrome s/p pacemaker, morbid obesity, GERD, gout arthropathy, osteoarthritis, psoriasis, pulmonary embolism, MRSA colonization, tremor, PTSD, recurrent falls, history of COVID, depression, who is at [facility] comes because of frequent falls and also found to have an ALMA ROSA . Patient states he is wheelchair-bound for 1 and half month but getting up to the wheelchair is falling frequently lately and has some bruises to his toes. Denies any hitting his head or loss of consciousness. Denies any headache. No earache or runny nose or sore throat. No cough. No fevers. No chest pain or shortness of breath. No nausea. No abdominal pain. Normal bowel and bladder movements. Past medical history as mentioned above Admission Exam Per Admitting Provider General- Not in distress. Head- atraumatic Eyes- PERRL, ENT- oropharynx clear Neck- supple, no JVD, Lungs- clear to auscultation no wheezing or crackles Heart- regular rhythm; no murmur, no gallop, . Abdomen- normal bowel sounds, soft, nontender, no distension. Extremities- b/l lower extremity edema present. bruises seen on toes. Neuro- alert, oriented x 3; PERRL, no facial palsy; no dysarthria; obeys commands, moves extermities. Principal Diagnosis ALMA ROSA (acute kidney injury) on CKD III Pacemaker complication Hematochezia Lower extremity superficial wounds Frequent falls Obstructive sleep apnea Chronic oxygen dependency COPD H/O Combined systolic and diastolic CHF History of A-fib Diabetes mellitus type II Hypothyroidism Hypertension Hyperlipidemia GERD Depression Discharge Exam General- No acute distress Head- atraumatic Eyes- PERRL, EOMI, ENT- oropharynx clear Neck- supple, no JVD Lungs- clear to auscultation Heart- regular rhythm; no murmur Abdomen- normal bowel sounds, soft, nontender Extremities- no calf tenderness, +edema Neuro- alert, oriented x 3; PERRL, EOMI; no facial palsy; no dysarthria Skin- warm & dry Discharge Data Allergies Allergy/AdvReac Type Severity Reaction Status Date / Time No Known Allergies Allergy Verified 02/17/23 11:08 Consultations 03/15/23 04:59 ED Decision to Admit Stat 03/17/23 14:35 Consult Podiatry Routine 03/19/23 15:04 Consult Cardiology Routine Ordered Studies Laboratory Results WBC 7.36 K/ul (4.8-10.8) 03/25/23 07:23 RBC 4.09 M/uL (4.70-6.10) L 03/25/23 07:23 Hgb 12.8 g/dl (14.0-18.0) L 03/26/23 07:48 Hct 40.6 % (42.0-52.0) L 03/26/23 07:48 MCV 88.5 fL (80.0-100.0) 03/25/23 07:23 MCH 29.1 pg (25.0-34.0) 03/25/23 07:23 MCHC 32.9 g/dL (32.0-36.0) 03/25/23 07:23 RDW Std Deviation 56.8 fL (36.4-46.3) H 03/25/23 07:23 RDW Coeff of Baldo 17.7 % (11.5-14.5) H 03/25/23 07:23 Plt Count 191 K/uL (130-400) 03/25/23 07:23 MPV 10.6 fL (9.4-12.4) 03/25/23 07:23 Immature Gran % (Auto) 0.8 % 03/20/23 01:52 Neut % (Auto) 66.3 % 03/20/23 01:52 Lymph % (Auto) 16.6 % 03/20/23 01:52 Emery % (Auto) 11.6 % 03/20/23 01:52 Eos % (Auto) 3.9 % 03/20/23 01:52 Baso % (Auto) 0.8 % 03/20/23 01:52 Neut # (Auto) 4.87 K/uL (1.40-6.50) 03/20/23 01:52 Lymph # (Auto) 1.22 K/uL (1.20-3.40) 03/20/23 01:52 Emery # (Auto) 0.85 K/uL (0.11-0.59) H 03/20/23 01:52 Eos # (Auto) 0.29 K/uL (0.00-0.50) 03/20/23 01:52 Baso # (Auto) 0.06 K/uL (0.00-0.20) 03/20/23 01:52 Immature Gran # (Auto) 0.06 K/uL (0.01-0.20) 03/20/23 01:52 APTT 34.8 Seconds (21.0-31.0) H 03/20/23 01:52 PTT Ratio 1.2 03/20/23 01:52 Sodium 137 mmol/L (136-145) 03/26/23 07:48 Potassium 4.4 mmol/L (3.5-5.1) 03/26/23 07:48 Chloride 103 mmol/L (98-107) 03/26/23 07:48 Carbon Dioxide 28 mmol/L (21-32) 03/26/23 07:48 Anion Gap 6 (3-11) 03/26/23 07:48 BUN 39 mg/dl (6-23) H 03/26/23 07:48 Creatinine 1.31 mg/dl (0.6-1.4) 03/26/23 07:48 Est Cr Clr Drug Dosing Not Reportable 03/26/23 07:48 Est GFR ( Amer) 63.0 ml/min 03/26/23 07:48 Est GFR (Non-Af Amer) 54.4 ml/min 03/26/23 07:48 BUN/Creatinine Ratio 29.8 (10-20) H 03/26/23 07:48 Glucose 179 mg/dl (70-99(Fasting)) H 03/26/23 07:48 POC Glucose 233 mg/dl (70-99) H 03/26/23 12:30 Estimat Average Glucose 217 mg/dl 03/15/23 08:40 Hemoglobin A1c 9.2 % (4.5-5.6) H 03/15/23 08:40 Calcium 9.9 mg/dl (8.6-10.3) 03/26/23 07:48 Magnesium 2.3 mg/dl (1.7-2.4) 03/15/23 08:40 Total Bilirubin 1.2 mg/dl (0.2-1.0) H 03/15/23 03:20 AST 31 U/L (13-39) 03/15/23 03:20 ALT 19 U/L (7-52) 03/15/23 03:20 Alkaline Phosphatase 142 U/L (34-104) H 03/15/23 03:20 Total Protein 6.6 gm/dl (6.0-8.3) 03/15/23 03:20 Albumin 3.6 gm/dl (3.4-5.0) 03/15/23 03:20 Globulin 3.0 gm/dl (2.5-4.0) 03/15/23 03:20 Albumin/Globulin Ratio 1.2 (0.9-2) 03/15/23 03:20 Urine Color Yellow 03/15/23 04:50 Urine Appearance Clear (Clear) 03/15/23 04:50 Urine pH 7.0 (4.5-7.5) 03/15/23 04:50 Ur Specific [place] 1.010 (1.000-1.030) 03/15/23 04:50 Urine Protein Negative (Negative) 03/15/23 04:50 Urine Glucose (UA) Trace (Negative) H 03/15/23 04:50 Urine Ketones Negative (Negative) 03/15/23 04:50 Urine Blood Negative (Negative) 03/15/23 04:50 Urine Nitrite Negative (Negative) 03/15/23 04:50 Urine Bilirubin Negative (Negative) 03/15/23 04:50 Urine Urobilinogen Negative (Negative) 03/15/23 04:50 Ur Leukocyte Esterase Negative (Negative) 03/15/23 04:50 Nasal Screen MRSA (PCR) Positive (Negative) A 03/17/23 Unknown Blood Type O Positive 03/20/23 01:52 Antibody Screen NEGATIVE 03/20/23 01:52 Impressions Chest X-Ray 03/22/23 07:00 XR chest 1V portable HISTORY: Shortness of breath. COMPARISON: Chest 03/15/2023. FINDINGS: No pneumothorax. No pleural effusions. The cardiac silhouette remains enlarged. No new focal lung consolidations to suggest a pneumonia. No evidence for pulmonary edema. A few stable linear scarlike densities within the right midlung zone. Old, healed right lower rib fractures. There is a left-sided dual- chamber pacemaker. IMPRESSION: No significant change compared to the prior study. No acute process. ACT 112: Negative or not required by law. Electronically signed by: Stan Lopez M.D. 03/22/2023 8:00 AM Hospital Course (1) ALMA ROSA (acute kidney injury): 72-year-old male with past med significant for type 2 diabetes, chronic kidney stage III hyperlipidemia, hypothyroidism, diabetic retinopathy, hypothyroidism, obstructive sleep apnea and COPD overlap syndrome, combined systolic and diastolic CHF, pulmonary hypertension, chronic right-sided heart failure, abdominal aortic atherosclerosis, paroxysmal atrial fibrillation, tachybradycardia syndrome s/p pacemaker, morbid obesity, GERD, gout arthropathy, osteoarthritis, psoriasis, pulmonary embolism, MRSA colonization, tremor, PTSD, recurrent falls, history of COVID, depression, who is at [facility] comes because of frequent falls and also found to have an ALMA ROSA ALMA RSOA on CKD III Presented with creatinine of 2.2 Baseline creatinine 1.4/1.6 Received gentle IV fluids Cr 1.36 today Resumed Lasix Monitor renal function Avoid nephrotoxic agents as able Follows with nephrology as outpatient Will increase Lasix to home dose if renal function continues to be stable Increased lasix to 60mg BID today Plan to go to rehab today Pacemaker complication Pacemaker interrogation completed Reprogramming pacemaker Continue metoprolol, digoxin Appreciate cardiology input Hematochezia Likely due to hemorrhoids Continue stool softeners Monitor CBC Hb stable Lower extremity superficial wounds Wound care nurse evaluation and recommendation Dressing as per wound care Appreciate wound care nurse and podiatry input Monitor Frequent falls Says he is wheelchair-bound for last 1 and a month and getting the wheelchair is falling down Continue PT OT: Recommended SNF/PCF Obstructive sleep apnea Chronic oxygen dependency Uses supplemental oxygen at bedtime- 2L COPD Home inhalers-no evidence of exacerbation H/O Combined systolic and diastolic CHF Was on Lasix 80 mg BID and spironolactone and potassium supplements and metoprolol succinate Monitor volume status, renal function closely Continue Aldactone Increase Lasix to 60 mg twice daily History of A-fib History of tachybradycardia syndrome s/p pacemaker Continue metoprolol succinate and digoxin and Eliquis Monitor Diabetes mellitus type II HbA1c 9.2 Continue insulin per protocol Monitor BGs Hypothyroidism Continue levothyroxine Hypertension Continue metoprolol Hyperlipidemia Continue statin GERD Continue PPI Depression Continue duloxetine and bupropion Gout On allopurinol DVT Px: Eliquis Code Status Full Code Disposition [facility]. case discussed with Alix ABREU at the [facility] Total Time Total Time Spent Total Time Spent (In Minutes): 40 minutes Discharge Plan Discharge Items Patient Disposition: Transfer [facility] Reason For Visit: FALLS, ALMA ROSA Discharge Diagnosis: ALMA ROSA (acute kidney injury) on CKD III Pacemaker complication Hematochezia Lower extremity superficial wounds Frequent falls Obstructive sleep apnea Chronic oxygen dependency COPD H/O Combined systolic and diastolic CHF History of A-fib Diabetes mellitus type II Hypothyroidism Hypertension Hyperlipidemia GERD Depression Activity: Resume your previous activity Non-emergency contact: Primary Care Provider Call non-emergency contact if: you have any medication questions, your symptoms worsen, your pain is concerning for you, you have a fever, your temperature is above 101 and your temperature is above 101.5 Follow-up/Referrals: Keith Rose DO [Primary Care Provider] - Diet: Carb Consistent or DM2 Addtl Attending Provider Instructions: Follow up with provider at the [facility] Continue physical and occupational therapy Fall precaution Continue monitor your blood sugar Check BMP in 1 week to monitor electrolytes and renal function Check CBC in 1 week to monitor your hemoglobin Ok to remove bagley catheter once pt able to ambulate with minimal desk assistant Seek medical attention if you develop any symptoms such as chest pain Pending Studies at Discharge: No Stand-Alone Forms: My [facility] Skilled Items Patient informed of condition?: Yes DNR: No Discharge Level of Care: Other Communicable Disease: No Discharge Prognosis: Stable Lines: None Urinary Catheter: Yes Medications and DC Order Prescriptions: Continued sennosides [Senokot] 8.6 mg Tablet 8.6 mg PO BID cetirizine 10 mg Tablet 10 mg PO DAILY atorvastatin 10 mg Tablet 10 mg PO DAILY metoprolol succinate 50 mg Tablet Extended Release 24 Hr 100 mg PO BID Iodosorb 0.9 % Gel 40 g TOPICAL Q3D furosemide 80 mg Tablet 80 mg PO BID carboxymethylcellulose sodium [Refresh Tears] 0.5 % Drops 1 drp OPHTHALMIC (EYE) QID levothyroxine 125 mcg Tablet 250 mcg PO DAILY nystatin 100,000 unit/gram Cream 1 applic TOPICAL BID lidocaine 5 % Adhesive Patch,Medicated 1 patch TOPICAL DAILY Rx Instructions: leave on most painful area for up to 12 hrs nitroglycerin [Nitrostat] 0.4 mg Tablet, Sublingual 0.4 mg sublingual DIRECTED PRN (Reason: Chest Pain) gabapentin 300 mg Capsule 300 mg PO QID omeprazole 20 mg Capsule,Delayed Release(Dr/Ec) 20 mg PO DAILY allopurinol 300 mg Tablet 300 mg PO DAILY aspirin 81 mg Tablet 81 mg PO DAILY albuterol 90 mcg/actuation Aerosol 2 mcg INHALATION Q4H PRN (Reason: Shortness Of Breath Or Wheezing) spironolactone 50 mg Tablet 50 mg PO DAILY Novolin R FlexPen 100 unit/mL (3 mL) Insulin Pen 20 unit SUBCUT AC bupropion HCl 300 mg Tablet Extended Release 24 Hr 300 mg PO QAM duloxetine 60 mg Capsule,Delayed Release(Dr/Ec) 60 mg PO DAILY cholecalciferol (vitamin D3) 25 mcg (1,000 unit) Tablet 25 mcg PO DAILY insulin glargine [Lantus Solostar U-100 Insulin] 100 unit/mL (3 mL) Insulin Pen 80 unit SUBCUT BID epinephrine 0.3 mg/0.3 mL Syringe 0.3 mg IM UD PRN (Reason: Allergic Reaction) digoxin 62.5 mcg (0.0625 mg) Tablet 62.5 mcg PO DAILY magnesium oxide 400 mg magnesium Capsule 400 mg PO DAILY Eliquis 5 mg Tablet 5 mg PO BID potassium chloride 20 mEq Tablet Extended Release 20 meq PO DAILY Rx Instructions: extra 20meq on thu and thursday tramadol 100 mg Tablet 100 mg PO Q6H PRN (Reason: Pain) Multivitamin And Mineral 1 tab 1 tab PO DAILY erythromycin 5 mg/gram (0.5 %) Ointment 0.5 inch OPHTHALMIC (EYE) BID Rx Instructions: Left BID vancomycin-0.9 % sod chlor(PF) 2.5 mg/0.25 mL Syringe 1 ml INTRAOCULAR UD Rx Instructions: one drop in left eye QID PreserVision AREDS-2 250-90-40-1 mg Capsule 1 tab PO BID Discharge Orders: Discharge Order (Routine); Ordered 03/26/23 Ordered By: Ximena Chino Discharge Order- [facility] (Routine); Ordered 03/26/23 Ordered By: Ximena Chino Admission Data Admit Date/Time: 03/15/23 05:28 Attending Provider: Ximena Chino Admit Provider: Mohit Newton Primary Care Provider: Keith Rose Other Providers: Mohit Newton ; Janes Carbajal ; [facility] ; Dae Leone
[2023-03-26] MEDS ORDERED: FUROSEMIDE 80 MG TAB PO SCH (17:00)
== END 2023-03-26 16:43 | DRG 683 ==
LOC: ED 02:57 → SUATTDRO 05:28 → EDINP 05:28 → 2W 20:58